=== PATIENT | female | born 1945 | race Caucasian/White ===

== ENCOUNTER 2023-05-10 07:19 | Outpatient (OUT) | payer MEDICARE, SELFPAY ==
[2023-05-13 03:06] LABS: Tacrolimus (FK506), Blood 1.8 ng/mL (2.0-20.0)
== END 2023-05-10 07:20 ==
LOC: LAB 07:25
PROVIDERS: PCP Family Medicine; Visit Provider Internal Medicine Interventional Cardiology
DX: Z94.1 Heart transplant status (principal)
CPT/HCPCS: 36415; 80197

== ENCOUNTER 2023-06-06 18:19 | Emergency (ER) | payer MEDICARE, SELFPAY ==
[2023-06-06] VITALS (30 sets, daily range): BP systolic 140–201; BP diastolic 76–105; PULSE 55–71; RESP 13–25; TEMP 36.8; O2SAT 96–98; BMI 23.4
--- NOTE | 2023-06-06 18:32 | CT_ITS ---
The [address] [address] Patient Name: SYLVIA HANNA MRN: [id number] date: 1945 Sex: F Assigned Patient Location: ED.MAIN Current Patient Location: ER Accession/Order Number: [id number] Exam Date: 06/06/2023 18:50 Report Date: 06/06/2023 19:19 At the request of: ROQUE MATA Procedure: CT head/brain wo con EXAM: CT scan of the head without contrast. Dose reduction technique used: Automated exposure control and/or adjustment of the mA and/or kV according to patient size and/or use of iterative reconstruction technique. REASON FOR EXAM: bilateral hand paresthesia COMPARISON: CT scan dated 02/14/2023 FINDINGS: No intracranial hemorrhage, mass effect, midline shift, fractures or evidence of acute ischemic infarct. No hydrocephalus. Tiny calcification the left frontal white matter. Mild generalized cerebral and cerebellar volume loss. Mild small vessel gliosis. Paranasal sinuses and mastoid air cells are clear. Remainder unremarkable. IMPRESSION: No acute intracranial abnormalities. Electronically authenticated by: REDD KULKARNI Date: 06/06/2023 19:19
--- NOTE | 2023-06-06 18:32 | ECG_ITS ---
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
--- NOTE | 2023-06-06 18:33 | ED.GENADUL1 ---
HPI - General Adult General Chief complaint: Neuro Symptoms/Deficit Stated complaint: Shoulders, arms and hands numbness Time Seen by Provider: 06/06/23 18:22 History of Present Illness HPI narrative: 77-year-old female presents for bilateral hand tingling. She's had it since this morning. She doesn't seem to have any weakness. She's been having headaches today as well. No trauma fever or stiff neck. No vomiting or diarrhea. Symptoms have been continuous. Related Data Allergies Allergy/AdvReac Type Severity Reaction Status Date / Time promethazine [From Phenergan] AdvReac Severe Confusion Verified 06/06/23 18:24 Review of Systems ROS Narrative A ten point review of systems is negative except as noted above. [facility] Medical History (Updated 06/06/23 @ 18:35 by Martin Thomson MD) Exam Narrative Exam Narrative: Nurses note and vital signs reviewed and patient is not hypoxic. General: The patient appears well and in no apparent distress. Patient is resting comfortably on cart. Skin: Warm, dry, no pallor noted. There is no rash noted. Head: Normocephalic, atraumatic Eye: Normal conjunctiva, no drainage Ears, Nose, Mouth, and Throat: oral mucosa is moist. Nares patent. Cardiovascular: Regular Rate and Rhythm Respiratory: Patient is in no distress, no accessory muscle use, lungs are clear to auscultation, no wheezing, rales or rhonchi Back: non-tender GI: soft and nontender Musculoskeletal: The patient has no evidence of calf tenderness, no pitting edema, symmetrical pulses noted bilaterally Neurological: A&O x4, normal speech; upper and lower extremity strength five out five and symmetric Psychiatric: Cooperative Medical Decision Making [facility] Narrative Medical decision making narrative: tests are ordered and the patient is signed out to Dr. Hutchinson. Differential Diagnosis Differential Diagnosis: electrolyte imbalance, intracranial process, anxiety Discharge Plan Discharge Chief Complaint: Neuro Symptoms/Deficit Clinical Impression: Paresthesia of both hands Referrals: Vijay Davis MD [Primary Care Provider] - 1 week
--- NOTE | 2023-06-06 18:47 | PC.NURSE ---
PT STATES SHE HAD COVID ABOUT A MONTH AGO AND HAS LINGERING DRY COUGH. PT STATES HAS BEEN FEELING MORE SHORT OF BREATH RECENTLY.
[2023-06-06 18:48] LABS: Basophils Percent Auto 0.3 % (0.2-2.0); Eosinophils Absolute Auto 0.4 10^3/uL (0.0-0.7); Hematocrit 40.7 % (36.0-48.0); Hemoglobin 13.3 g/dL (12.0-16.0); Immature Granulocytes Abs Auto 0.03 10^3/uL (0.00-0.03); Immature Granulocytes Pct Auto 0.4 % (0.0-0.5); Lymphocytes Percent Auto 13.8 % (20.5-60.0); Mean Corpuscular HGB Conc 32.7 g/dL (29.9-35.2); Mean Corpuscular Hemoglobin 28.4 pg (26.7-34.0); Mean Platelet Volume 9.2 fL (9.5-13.5); Monocytes Absolute Auto 0.8 10^3/uL (0.3-0.8); Monocytes Percent Auto 11.9 % (1.7-12.0); Neutrophils Absolute Auto 4.8 10^3/uL (1.4-6.5); Neutrophils Percent Auto 68.6 % (43.0-75.0); Platelet Count 212 10^3/uL (150-450); Red Blood Count 4.68 10^6/uL (4.20-5.40)
[2023-06-06 18:57] LABS: Anion Gap 14.4; BUN Creatinine Ratio 21.1; Calcium 8.5 mg/dL (8.5-10.1); Carbon Dioxide 22.7 mmol/L (21.0-32.0); Chloride 99 mmol/L (98-107); Estimated GFR (African America 36 (>=60); Estimated GFR (Non-African Ame 30 (>=60); Glucose 195 mg/dL (74-106); Magnesium 1.6 mg/dL (1.8-2.4); Potassium 4.1 mmol/L (3.5-5.1); Sodium 132 mmol/L (136-145)
--- NOTE | 2023-06-06 19:49 | PC.NURSE ---
Pt ambulated steadily to and from the restroom
[2023-06-06] MEDS: HYDRALAZINE HCL 20 MG/ML VIAL 5 MG IVP (21:58)
--- NOTE | 2023-06-06 22:05 | PC.NURSE ---
After speaking with Dr. Hutchinson, pt is taking her own medicactions from home that she would usually take at night time Pt was given a glass of ice water and some food Pt sitting up in bed comfortably
== END 2023-06-06 22:59 | disposition home or self-care (01) ==
PROVIDERS: Emergency Medicine; Emergency Provider Internal Medicine; PCP Family Medicine
DX: R20.2 Paresthesia of skin (principal); I10 Essential (primary) hypertension; Z79.899 Other long term (current) drug therapy
CPT/HCPCS: 36415; 70450; 80048; 81003; 83735; 85025; 93005; 96374; 99285

== ENCOUNTER 2023-06-07 14:43 | Observation (INO) | payer MEDICARE, SELFPAY ==
[2023-06-07] VITALS (27 sets, daily range): BP systolic 103–187; BP diastolic 51–109; PULSE 76–95; RESP 11–33; TEMP 36.7–37.5; O2SAT 93–98; BMI 48.4; BMI 23.6
--- NOTE | 2023-06-07 15:22 | ECG_ITS ---
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
--- NOTE | 2023-06-07 15:27 | ED_ITS ---
HPI - General Adult General Chief complaint: Dizziness Stated complaint: DIZZINESS Time Seen by Provider: 06/07/23 15:00 Source: patient Mode of arrival: ambulance Limitations: no limitations History of Present Illness HPI narrative: patient with 2-3 days of nausea, vomiting and dizziness like I am going to pass out . She was evaluated in our ED yesterday and had a negative head CT. Blood obtained for testing and she was discharged home in improved condition. She said nothing was prescribed for her. She continued to have nausea and vomiting today and the near-syncope worsened so she came back to be evaluated. She told me that she has pain along the right side of the abdomen. No difficulty urinating or passing stool. No fever, chills or cough Related Data Home Medications Medication Instructions Recorded Confirmed aspirin 81 mg tablet,delayed 81 mg PO DAILY 06/06/23 06/06/23 release citalopram 20 mg tablet (Celexa) 20 mg PO DAILY 06/06/23 06/06/23 clonazepam 1 mg tablet 1 mg PO DAILY 06/06/23 06/06/23 qhjrik-[id number]-[id number] 3 cap PO TID 06/06/23 06/06/23 36,000-114,000-180,000 unit capsule,delay rel (Creon) losartan 50 mg tablet 50 mg PO DAILY 06/06/23 06/06/23 magnesium 250 mg tablet 250 mg PO DAILY 06/06/23 06/06/23 metoprolol tartrate 50 mg tablet 50 mg PO Q12H 06/06/23 06/06/23 mycophenolate mofetil 500 mg tablet 500 mg PO BID 06/06/23 06/06/23 omega-3 fatty acids-fish oil 360 1 cap PO DAILY 06/06/23 06/06/23 mg-1,200 mg capsule (Fish Oil) pramipexole 0.5 mg tablet 0.5 mg PO DAILY 06/06/23 06/06/23 simvastatin 20 mg tablet 20 mg PO DAILY 06/06/23 06/06/23 tacrolimus 0.5 mg capsule, 0.5 mg PO Q12H 06/06/23 06/06/23 immediate-release Allergies Allergy/AdvReac Type Severity Reaction Status Date / Time promethazine [From Phenergan] AdvReac Severe Confusion Verified 06/07/23 14:45 [facility] Medical History (Updated 06/07/23 @ 17:46 by Farzaneh Prajapati) Social History Smoking status: Never smoker Exam Narrative Exam Narrative: Nurses notes and vital signs reviewed and patient is not hypoxic. General: Well-appearing and in no apparent distress. Skin: Warm, dry, no pallor noted. No rash. Head: Normocephalic, atraumatic. Neck: Supple, non-tender. no meningismus Eye: Pupils are equal, round and EOMI. No scleral icterus. Ears, Nose, Mouth, and Throat: Oral mucosa is dry Cardiovascular: Regular Rate and Rhythm without murmur, gallop or rub. Respiratory: No accessory muscle use or respiratory distress. Lungs are clear to auscultation, no wheezing, rales or rhonchi Back: No CVA tenderness Musculoskeletal: normal ROM, no calf or popliteal tenderness, no lower extremity edema/swelling GI: Abdomen is soft, non-distended. Normal bowel sounds. No masses appreciated. right-sided tenderness to palpation. No rebound, guarding, or rigidity noted. Neurological: A&O x4. No cranial nerve dysfunction observed. No truncal ataxia. Moves all extremities. Sensation intact. Psychiatric: Cooperative and interactive. Normal mood and affect. Constitutional Vital Signs - 24 hr 06/07/23 14:46 06/07/23 14:50 06/07/23 15:30 Temperature 98.5 F Pulse Rate Pulse Rate [Monitor] 81 Pulse Rate [orthostatic lying] 82 Pulse Rate [orthostatic sitting] Pulse Rate [orthostatic standing] Respiratory Rate 16 Blood Pressure Blood Pressure [Right Arm] 132/72 H Blood Pressure [orthostatic lying Right Arm] 103/79 Blood Pressure [orthostatic sitting] Blood Pressure [orthostatic standing Right Arm] Pulse Oximetry 95 Oxygen Delivery Method Room Air 06/07/23 15:35 06/07/23 15:40 06/07/23 14:47 Temperature Pulse Rate 83 Pulse Rate [Monitor] Pulse Rate [orthostatic lying] Pulse Rate [orthostatic sitting] 84 Pulse Rate [orthostatic standing] 82 Respiratory Rate 31 H Blood Pressure Blood Pressure [Right Arm] Blood Pressure [orthostatic lying Right Arm] Blood Pressure [orthostatic sitting] 130/77 H Blood Pressure [orthostatic standing Right Arm] 119/63 Pulse Oximetry Oxygen Delivery Method 06/07/23 14:49 06/07/23 14:49 06/07/23 14:49 Temperature Pulse Rate 82 84 84 Pulse Rate [Monitor] Pulse Rate [orthostatic lying] Pulse Rate [orthostatic sitting] Pulse Rate [orthostatic standing] Respiratory Rate 26 H 31 H 28 H Blood Pressure 105/51 L 105/51 L Blood Pressure [Right Arm] Blood Pressure [orthostatic lying Right Arm] Blood Pressure [orthostatic sitting] Blood Pressure [orthostatic standing Right Arm] Pulse Oximetry 94 L 95 94 L Oxygen Delivery Method 06/07/23 15:02 06/07/23 15:10 06/07/23 15:20 Temperature Pulse Rate 82 83 83 Pulse Rate [Monitor] Pulse Rate [orthostatic lying] Pulse Rate [orthostatic sitting] Pulse Rate [orthostatic standing] Respiratory Rate 25 H 25 H 29 H Blood Pressure Blood Pressure [Right Arm] Blood Pressure [orthostatic lying Right Arm] Blood Pressure [orthostatic sitting] Blood Pressure [orthostatic standing Right Arm] Pulse Oximetry 94 L 94 L 94 L Oxygen Delivery Method 06/07/23 15:29 06/07/23 15:29 06/07/23 15:30 Temperature Pulse Rate 82 83 84 Pulse Rate [Monitor] Pulse Rate [orthostatic lying] Pulse Rate [orthostatic sitting] Pulse Rate [orthostatic standing] Respiratory Rate 27 H 22 16 Blood Pressure 130/109 H 103/79 Blood Pressure [Right Arm] Blood Pressure [orthostatic lying Right Arm] Blood Pressure [orthostatic sitting] Blood Pressure [orthostatic standing Right Arm] Pulse Oximetry 96 94 L 94 L Oxygen Delivery Method 06/07/23 15:35 06/07/23 15:40 06/07/23 15:54 Temperature Pulse Rate 84 79 80 Pulse Rate [Monitor] Pulse Rate [orthostatic lying] Pulse Rate [orthostatic sitting] Pulse Rate [orthostatic standing] Respiratory Rate 22 25 H 25 H Blood Pressure 130/77 H 119/63 114/72 Blood Pressure [Right Arm] Blood Pressure [orthostatic lying Right Arm] Blood Pressure [orthostatic sitting] Blood Pressure [orthostatic standing Right Arm] Pulse Oximetry 96 Oxygen Delivery Method 06/07/23 16:01 06/07/23 16:01 06/07/23 16:34 Temperature Pulse Rate 81 84 Pulse Rate [Monitor] Pulse Rate [orthostatic lying] Pulse Rate [orthostatic sitting] Pulse Rate [orthostatic standing] Respiratory Rate 24 11 L Blood Pressure 121/69 H 121/69 H Blood Pressure [Right Arm] Blood Pressure [orthostatic lying Right Arm] Blood Pressure [orthostatic sitting] Blood Pressure [orthostatic standing Right Arm] Pulse Oximetry Oxygen Delivery Method 06/07/23 16:47 06/07/23 16:50 06/07/23 17:00 Temperature Pulse Rate 83 80 79 Pulse Rate [Monitor] Pulse Rate [orthostatic lying] Pulse Rate [orthostatic sitting] Pulse Rate [orthostatic standing] Respiratory Rate 31 H 25 H 23 Blood Pressure Blood Pressure [Right Arm] Blood Pressure [orthostatic lying Right Arm] Blood Pressure [orthostatic sitting] Blood Pressure [orthostatic standing Right Arm] Pulse Oximetry 95 95 95 Oxygen Delivery Method 06/07/23 17:01 06/07/23 17:01 06/07/23 17:01 Temperature Pulse Rate 80 80 79 Pulse Rate [Monitor] Pulse Rate [orthostatic lying] Pulse Rate [orthostatic sitting] Pulse Rate [orthostatic standing] Respiratory Rate 28 H 24 28 H Blood Pressure 116/98 H 116/98 H Blood Pressure [Right Arm] Blood Pressure [orthostatic lying Right Arm] Blood Pressure [orthostatic sitting] Blood Pressure [orthostatic standing Right Arm] Pulse Oximetry 95 96 94 L Oxygen Delivery Method Course Vital Signs Vital signs: Vital Signs Temperature 98.5 F 06/07/23 14:46 Pulse Rate 81 06/07/23 14:46 Respiratory Rate 16 06/07/23 14:46 Blood Pressure 132/72 H 06/07/23 14:46 Pulse Oximetry 95 06/07/23 14:46 Temperature 98.5 F 06/07/23 14:46 Pulse Rate 79 06/07/23 17:01 Respiratory Rate 28 H 06/07/23 17:01 Blood Pressure 116/98 H 06/07/23 17:01 Pulse Oximetry 94 L 06/07/23 17:01 Oxygen Delivery Method Room Air 06/07/23 14:50 Medical Decision Making MDM Narrative Medical decision making narrative: peripheral IV established and blood drawn and sent for testing. The patient is clinically dehydrated and was given normal saline IV fluid. I had concerns about the patient's continued vomiting with diarrhea and abdominal pain so I ordered CT scanning of the abdomen pelvis. White blood cell count was elevated at 12k. Left shift was noted. urinalysis revealed acute urinary tract infection. The patient was ordered to receive IV Cipro. CMP reveals slightly decreased sodium at 129, elevated BUN and creatinine, elevated total bilirubin at 1.[address] revealed findings consistent with duodenitis and enteritis. Patient only felt minimally better after emergency department treatment. Patient's failed outpatient therapy and would benefit from admission. I spoke with patient's primary care provider. Dr. Bacon agreed to have the patient with his service. The patient is agreeable to admission Lab Data Lab results reviewed: Yes I reviewed the patient's lab results Labs: Lab Results 06/07/23 06/07/23 Range/Units 15:51 16:40 WBC 12.0 H (4.0-11.0) 10^3/uL RBC 4.92 (4.20-5.40) 10^6/uL Hgb 14.0 (12.0-16.0) g/dL Hct 42.2 (36.0-48.0) % MCV 85.8 (81.0-99.0) fL MCH 28.5 (26.7-34.0) pg MCHC 33.2 (29.9-35.2) g/dL RDW 13.0 (11.0-15.0) % Plt Count 190 (150-450) 10^3/uL MPV 9.1 L (9.5-13.5) fL Neut % (Auto) 91.5 H (43.0-75.0) % Lymph % (Auto) 1.3 L (20.5-60.0) % Ness % (Auto) 6.4 (1.7-12.0) % Eos % (Auto) 0.3 L (0.9-7.0) % Baso % (Auto) 0.1 L (0.2-2.0) % Neut # (Auto) 11.0 H (1.4-6.5) 10^3/uL Lymph # (Auto) 0.2 L (1.2-3.8) 10^3/uL Ness # (Auto) 0.8 (0.3-0.8) 10^3/uL Eos # (Auto) 0.0 (0.0-0.7) 10^3/uL Baso # (Auto) 0.0 (0.0-0.1) 10^3/uL Abs Immat Gran (auto) 0.05 H (0.00-0.03) 10^3/uL Imm/Tot Granulo (auto) 0.4 (0.0-0.5) % Sodium 129 L (136-145) mmol/L Potassium 4.3 (3.5-5.1) mmol/L Chloride 99 (98-107) mmol/L Carbon Dioxide 22.2 (21.0-32.0) mmol/L Anion Gap 12.1 BUN 37.0 H (7.0-18.0) mg/dL Creatinine 1.86 H (0.55-1.02) mg/dL Est GFR ( Amer) 32 L (>=60) Est GFR (Non-Af Amer) 26 L (>=60) BUN/Creatinine Ratio 19.9 Glucose 165 H (74-106) mg/dL Calcium 8.9 (8.5-10.1) mg/dL Total Bilirubin 1.8 H (0.2-1.0) mg/dL AST 23 (15-37) U/L ALT 24 (14-59) U/L Alkaline Phosphatase 122 H (46-116) U/L Troponin I High Sens 6.4 (4.0-51.3) pg/mL Total Protein 6.8 (6.4-8.2) g/dL Albumin 3.6 (3.4-5.0) g/dL Globulin 3.2 g/dL Albumin/Globulin Ratio 1.1 Lipase 129.0 (73.0-393.0) U/L Urine Color Yellow (YELLOW) Urine Clarity Slightly cloudy A (CLEAR) Urine pH 5.5 (5.0-9.0) Ur Specific Dixon 1.020 (1.005-1.025) Urine Protein >=300 A (NEG/TRACE) mg/dL Urine Glucose (UA) Negative (NEGATIVE) mg/dL Urine Ketones Negative (NEGATIVE) mg/dL Urine Occult Blood Trace-i (NEGATIVE) Urine Nitrite Negative (NEGATIVE) Urine Bilirubin Negative (NEGATIVE) Urine Urobilinogen 0.2 (0.2-1.0) EU/dL Ur Leukocyte Esterase Trace A (NEGATIVE) Urine RBC 0-2 (0-2) #/HPF Urine WBC 10-20 A (NONE SEEN) #/HPF Ur Squamous Epith Cells Rare (NONE/RARE) #/LPF Urine Crystals None seen (None Seen) #/HPF Urine Bacteria Trace A (NONE SEEN) #/HPF Urine Casts Seen A (NONE SEEN) #/LPF Hyaline Casts Rare Urine Mucus None seen (NONE SEEN) Ur Culture Indicated? Yes Imaging Data ct abd/pelvis: Radiologist's impression: Patient Name: SYLVIA HANNA MRN: [facility] [place]:[id number] date: 1945 Sex: F Assigned Patient Location: ER Current Patient Location: ER Accession/Order Number: [id number] Exam Date: 06/07/2023 16:17 Report Date: 06/07/2023 17:15 At the request of: FARZANEH PRAJAPATI Procedure: CT abdomen pelvis w con EXAM: CT abdomen pelvis w con; [id number] REASON FOR EXAM: right abd pain, vomiting TECHNIQUE: Helical CT images of the abdomen and pelvis were obtained after the administration of IV contrast. Multiplanar reformats were generated at the scanner. Dose reduction technique used: Automated exposure control and/or adjustment of the mA and/or kV according to patient size and/or use of iterative reconstruction technique. COMPARISON: CT abdomen/pelvis 02/18/2022. FINDINGS: Visualized Chest: Mild chronic left basilar scarring, similar. Abdomen: Liver: Within normal limits. Gallbladder: Resected. Bile Ducts: No significant biliary ductal dilatation. Pancreas: No mass, ductal dilatation, or inflammatory changes. Spleen: Medium-sized focal area of hypoattenuation versus chronic splenic capsular collection measuring 12 mm in greatest thickness, similar compared with 02/18/2022. No new splenic abnormality. Adrenals: No nodules. Kidneys: -No stones or hydronephrosis. -Bilateral renal lesions are not significantly changed. The majority of these likely represent subcentimeter cysts. There are 2 in the left kidney which are of intermediate density with the largest in the lower pole measuring 17 mm in size. Vascular: No aortic aneurysm. Lymph Nodes: Scattered mildly prominent though not pathologically enlarged lymph nodes at the mesenteric root are similar. No enlarging lymph nodes. Abdominal Wall: No hernia or mass. Pelvis: No mass or adenopathy. Bowel/Peritoneal Cavity/Mesentery: -Mild colonic diverticulosis without evidence of acute diverticulitis. -Short segment of moderate wall thickening and mucosal hyperenhancement extending from the second portion of the duodenum into the third (for example series 3 image 52), moderately worse compared with 02/18/2022. -There is liquid stool throughout the small bowel. -No bowel obstruction or significant ileus. -No free air or free fluid. Musculoskeletal: No acute fracture or suspicious osseous lesion. IMPRESSION: 1. Liquid stool throughout the small bowel which can be seen in setting of enteritis. 2. Moderate wall thickening of the second through third portions of the duodenum which appear moderately worse compared with 02/18/2022. Correlate for duodenitis. 3. No bowel obstruction. Electronically authenticated by: ALEXANDER BELLO Date: 06/07/2023 17:15 ECG Data Interpretation: EKG interpretation: Emergency Department physician interpretation. Normal sinus rhythm at 80bpm. right bundle-branch block, right axis deviation. Inferolateral ST depression Discharge Plan Discharge Chief Complaint: Dizziness Clinical Impression: Gastroenteritis, Acute kidney injury, Acute dehydration, Acute UTI Patient Disposition: Admitted as Observation Time of Disposition Decision: 17:31 Additional Instructions: dr bacon, medical/surgical floor
[2023-06-07] MEDS: 0.9 % SODIUM CHLORIDE 1,000 ML 999 ML IV (15:41)
[2023-06-07 16:00] LABS: Basophils Percent Auto 0.1 % (0.2-2.0); Eosinophils Percent Auto 0.3 % (0.9-7.0); Hematocrit 42.2 % (36.0-48.0); Immature Granulocytes Abs Auto 0.05 10^3/uL (0.00-0.03); Immature Granulocytes Pct Auto 0.4 % (0.0-0.5); Lymphocytes Absolute Auto 0.2 10^3/uL (1.2-3.8); Lymphocytes Percent Auto 1.3 % (20.5-60.0); Mean Corpuscular HGB Conc 33.2 g/dL (29.9-35.2); Mean Corpuscular Hemoglobin 28.5 pg (26.7-34.0); Mean Corpuscular Volume 85.8 fL (81.0-99.0); Mean Platelet Volume 9.1 fL (9.5-13.5); Monocytes Absolute Auto 0.8 10^3/uL (0.3-0.8); Monocytes Percent Auto 6.4 % (1.7-12.0); Neutrophils Percent Auto 91.5 % (43.0-75.0); Platelet Count 190 10^3/uL (150-450); Red Blood Count 4.92 10^6/uL (4.20-5.40)
[2023-06-07 16:18] LABS: Alanine Aminotransferase 24 U/L (14-59); Albumin Globulin Ratio 1.1; Albumin Level 3.6 g/dL (3.4-5.0); Alkaline Phosphatase 122 U/L (46-116); Anion Gap 12.1; Aspartate Amino Transferase 23 U/L (15-37); BUN Creatinine Ratio 19.9; Bilirubin Total 1.8 mg/dL (0.2-1.0); Calcium 8.9 mg/dL (8.5-10.1); Carbon Dioxide 22.2 mmol/L (21.0-32.0); Chloride 99 mmol/L (98-107); Estimated GFR (African America 32 (>=60); Estimated GFR (Non-African Ame 26 (>=60); Globulin 3.2 g/dL; Glucose 165 mg/dL (74-106); Potassium 4.3 mmol/L (3.5-5.1); Sodium 129 mmol/L (136-145); Total Protein 6.8 g/dL (6.4-8.2); Troponin I High Sensitivity 6.4 pg/mL (4.0-51.3)
[2023-06-07 17:03] LABS: Bilirubin Urine NEGATIVE (NEGATIVE); Blood Urine TRACE-I (NEGATIVE); Color Urine YELLOW (YELLOW); Glucose Urine UA NEGATIVE (NEGATIVE); Ketones Urine NEGATIVE (NEGATIVE); Leukocyte Esterase Urine TRACE (NEGATIVE); Nitrite Urine NEGATIVE (NEGATIVE); Protein Urine >=300 mg/dL (NEG/TRACE); Urobilinogen Urine 0.2 EU/dL (0.2-1.0); pH Urine 5.5 (5.0-9.0)
[2023-06-07 17:04] LABS: Clarity Urine SLIGHTLY CLOUDY (CLEAR); Urine Microscopic Indicated YES
[2023-06-07 17:11] LABS: Bacteria Urine TRACE #/HPF (NONE SEEN); Cast Seen? SEEN #/LPF (NONE SEEN); Crystals Seen? None Seen #/HPF (None Seen); Hyaline Casts Urine RARE; Mucus Urine NONE SEEN (NONE SEEN); RBC Urine 0-2 #/HPF (0-2); Squamous Epithelial Cell Urine RARE #/LPF (NONE/RARE); Urine Culture Indicated YES
[2023-06-07] MEDS: CIPROFLOXACIN IN 5 % DEXTROSE 400 MG/200 ML PIGGYBACK IV (17:45)
[2023-06-07] MEDS: DIPHENHYDRAMINE HCL 50 MG/ML (1ML) VIAL 25 MG IV (18:20)
[2023-06-07] MEDS: CEFTRIAXONE 1,000 MG in 0.9 % SODIUM CHLORIDE 50 ML 100 MG IV (18:41)
[2023-06-07] MEDS: LACTATED RINGER'S SOLUTION 1,000 ML 75 ML IV (18:41)
[2023-06-07] MEDS: PANTOPRAZOLE SODIUM 40 MG VIAL IV (21:36)
[2023-06-07] MEDS: L. ACIDOPHILUS/L.BULGARICUS 1 PACKET GRAN.PACK PO (21:36)
[2023-06-07] MEDS: METOPROLOL TARTRATE 50 MG TABLET PO (21:37)
[2023-06-08 06:00] VITALS: BP 122/47; PULSE 67; RESP 18; TEMP 37.3; O2SAT 95
[2023-06-08 06:06] LABS: Hematocrit 37.9 % (36.0-48.0); Hemoglobin 12.1 g/dL (12.0-16.0); Mean Corpuscular HGB Conc 31.9 g/dL (29.9-35.2); Mean Corpuscular Hemoglobin 28.4 pg (26.7-34.0); Red Blood Count 4.26 10^6/uL (4.20-5.40); White Blood Count 6.4 10^3/uL (4.0-11.0)
[2023-06-08 06:07] LABS: Basophils Percent Auto 0.3 % (0.2-2.0); Eosinophils Absolute Auto 0.1 10^3/uL (0.0-0.7); Eosinophils Percent Auto 1.3 % (0.9-7.0); Immature Granulocytes Abs Auto 0.02 10^3/uL (0.00-0.03); Immature Granulocytes Pct Auto 0.3 % (0.0-0.5); Lymphocytes Absolute Auto 0.3 10^3/uL (1.2-3.8); Lymphocytes Percent Auto 3.9 % (20.5-60.0); Mean Platelet Volume 9.3 fL (9.5-13.5); Monocytes Absolute Auto 0.6 10^3/uL (0.3-0.8); Monocytes Percent Auto 10.1 % (1.7-12.0); Neutrophils Absolute Auto 5.3 10^3/uL (1.4-6.5); Neutrophils Percent Auto 84.1 % (43.0-75.0); Platelet Count 157 10^3/uL (150-450); Red Cell Distribution Width 13.1 % (11.0-15.0)
[2023-06-08 06:34] LABS: Anion Gap 11.8; BUN Creatinine Ratio 18.1; Bilirubin Total 1.3 mg/dL (0.2-1.0); Calcium 7.9 mg/dL (8.5-10.1); Carbon Dioxide 21.3 mmol/L (21.0-32.0); Chloride 100 mmol/L (98-107); Estimated GFR (African America 35 (>=60); Estimated GFR (Non-African Ame 29 (>=60); Glucose 113 mg/dL (74-106); Magnesium 1.5 mg/dL (1.8-2.4); Potassium 4.1 mmol/L (3.5-5.1); Sodium 129 mmol/L (136-145)
[2023-06-08 06:35] LABS: Alanine Aminotransferase 23 U/L (14-59); Albumin Globulin Ratio 1.1; Albumin Level 2.9 g/dL (3.4-5.0); Alkaline Phosphatase 78 U/L (46-116); Aspartate Amino Transferase 22 U/L (15-37); Globulin 2.6 g/dL; Total Protein 5.5 g/dL (6.4-8.2); Troponin I High Sensitivity 12.5 pg/mL (4.0-51.3)
[2023-06-08] MEDS: METOPROLOL TARTRATE 50 MG TABLET PO (08:24)
[2023-06-08] MEDS: MAGNESIUM OXIDE 400 MG TABLET PO (08:24)
[2023-06-08] MEDS: ATORVASTATIN CALCIUM 10 MG TABLET PO (08:24)
[2023-06-08] MEDS: CLONAZEPAM 1 MG TABLET PO (08:24)
[2023-06-08] MEDS: CITALOPRAM HYDROBROMIDE 20 MG TABLET PO (08:24)
[2023-06-08] MEDS: ASPIRIN 81 MG TABLET.DR PO (08:24)
[2023-06-08] MEDS: PRAMIPEXOLE 1 MG TABLET 0.5 MG PO (08:24)
[2023-06-08] MEDS: OMEGA-3/DHA/EPA/FISH OIL 1,000 MG CAPSULE 1000 MG PO (08:24)
--- NOTE | 2023-06-08 10:04 | P.HP_ITS ---
H&P: HPI History of Present Illness Chief complaint: GASTROENTERITIS ABD UTI Narrative: Patient was seen and evaluated in the emergency room twice in the last 24 hours. Diarrhea with recurrent emesis. It was improved on the first admission but then the second visit to the emergency room unable to improve. Patient admitted for IV therapy. [facility] Medical History (Updated 06/07/23 @ 17:46 by Jackson Valderrama) Social History (Updated 06/07/23 @ 22:11 by Lizeth Ho) Within the past year, how often did you have a drink containing alcohol: never Score interpretation: A score less than 3 is consistent with normal alcohol consumption. Smoking status: Never smoker Non-prescribed substance use: denies use Highest level of school completed/degree received: high school graduate Are you now , , , , never or living with a partner: In a typical week, how many times do you talk on the telephone with family, friends, or neighbors: 3 or more times per week How often do you get together with friends or relatives: 3 or more times per week How often do you attend zoroastrianism or moravian services: 4 or more times per year Do you belong to any clubs or organizations such as zoroastrianism groups unions, [employer] or athletic groups, or school groups: no Total score: 3 Score interpretation: A score of greater than or equal to 2 indicates the lowest level of social isolation. Little interest or pleasure in doing things: not at all Feeling down, depressed, or hopeless: not at all Feel stressed/tense/nervous/anxious/difficulty sleeping: not at all Do you think of yourself as: straight/heterosexual Gender Identity: female Meds Home Medications and Allergies Home Medications Medication Instructions Recorded Confirmed Type aspirin 81 mg tablet,delayed 81 mg PO DAILY 06/06/23 06/07/23 History release citalopram 20 mg tablet (Celexa) 20 mg PO DAILY 06/06/23 06/07/23 History clonazepam 1 mg tablet 1 mg PO DAILY PRN anxiety 06/06/23 06/07/23 History leuint-[id number]-baipeir 3 cap PO TID 06/06/23 06/07/23 History 36,000-114,000-180,000 unit capsule,delay rel (Creon) losartan 50 mg tablet 50 mg PO DAILY 06/06/23 06/07/23 History magnesium 250 mg tablet 250 mg PO DAILY 06/06/23 06/07/23 History metoprolol tartrate 50 mg tablet 50 mg PO Q12H 06/06/23 06/07/23 History mycophenolate mofetil 500 mg tablet 500 mg PO BID 06/06/23 06/07/23 History omega-3 fatty acids-fish oil 360 1 cap PO DAILY 06/06/23 06/07/23 History mg-1,200 mg capsule (Fish Oil) pramipexole 0.5 mg tablet 0.5 mg PO DAILY 06/06/23 06/07/23 History simvastatin 20 mg tablet 20 mg PO DAILY 06/06/23 06/07/23 History tacrolimus 0.5 mg capsule, 0.5 mg PO Q12H 06/06/23 06/07/23 History immediate-release levothyroxine 112 mcg tablet 112 mcg PO QDAY 06/07/23 06/07/23 History cefdinir 300 mg capsule 300 mg PO Q12H 10 days #20 caps 06/08/23 Rx ondansetron 4 mg disintegrating 4 mg PO Q6H PRN nausea and 06/08/23 Rx tablet vomiting #14 tabs Allergies Allergy/AdvReac Type Severity Reaction Status Date / Time promethazine [From Phenergan] AdvReac Severe Confusion Verified 06/07/23 14:45 ciprofloxacin [From Cipro] AdvReac Mild HIVES Verified 06/07/23 18:44 Exam Constitutional Vital Signs, click to edit/add: Last Vital Signs Temp 99.2 F 06/08/23 06:00 Pulse 67 06/08/23 06:00 Resp 18 06/08/23 06:00 BP 122/47 H 06/08/23 06:00 Pulse Ox 95 06/08/23 06:00 O2 Del Method Room Air 06/08/23 06:00 Documenting provider has reviewed patient's vital signs: yes Common normals: no apparent distress Exam limitations: no altered mental status Respiratory Common normals: normal respiratory effort, no retractions, no use of accessory muscles and clear to auscultation bilaterally Cardio Common normals: regular rate, regular rhythm and no murmurs GI Common normals: Normal to inspection, nondistended, normoactive bowel sounds present, soft to palpation and non-tender Results Labs Labs: Short CBC 06/07/23 06/08/23 Range/Units 15:51 04:25 WBC 12.0 H 6.4 (4.0-11.0) 10^3/uL Hgb 14.0 12.1 (12.0-16.0) g/dL Hct 42.2 37.9 (36.0-48.0) % Plt Count 190 157 (150-450) 10^3/uL BMP 06/07/23 06/08/23 15:51 04:25 Sodium 129 L 129 L Potassium 4.3 4.1 Chloride 99 100 Carbon Dioxide 22.2 21.3 BUN 37.0 H 31.0 H Creatinine 1.86 H 1.71 H Glucose 165 H 113 H Calcium 8.9 7.9 L Liver Function 06/07/23 06/08/23 Range/Units 15:51 04:25 Total Bilirubin 1.8 H 1.3 H (0.2-1.0) mg/dL AST 23 22 (15-37) U/L ALT 24 23 (14-59) U/L Alkaline Phosphatase 122 H 78 (46-116) U/L Albumin 3.6 2.9 L (3.4-5.0) g/dL Urine 06/07/23 Range/Units 16:40 Urine Color Yellow (YELLOW) Urine Clarity Slightly cloudy A (CLEAR) Urine pH 5.5 (5.0-9.0) Ur Specific [place] 1.020 (1.005-1.025) Urine Protein >=300 A (NEG/TRACE) mg/dL Urine Glucose (UA) Negative (NEGATIVE) mg/dL Assessment and Plan Assessment and Plan (1) Hypertension: (2) Gastroenteritis: (3) Acute kidney injury: (4) Acute dehydration: (5) Acute UTI: Plan Dehydration secondary to acute gastroenteritis and complicated by acute UTI. On IV antibiotics. Patient does feel much improved currently. She did tolerate breakfast without emesis. At this point if he tolerates lunch without emesis and is ambulating safely we will discharge patient to home in improving condition. Medications see list. Follow-up with me in the office just as needed based on symptoms
[2023-06-08] MEDS: L. ACIDOPHILUS/L.BULGARICUS 1 PACKET GRAN.PACK PO (11:11)
[2023-06-08 11:26] VITALS: O2SAT 92
[2023-06-08] MEDS: ACETAMINOPHEN 500 MG TABLET 1000 MG PO (12:06)
--- NOTE | 2023-06-10 12:16 | CM.DCFOLLOWU ---
Person spoke with: patient How are you feeling? weak How is your pain? pt did not voice that she was in pain Did you understand your discharge instructions? yes Do you have any questions about your discharge instructions? no Were you given any prescriptions at discharge? yes Were you able to get your prescriptions filled? yes Do you understand how to take your medications as ordered? yes Do you have any questions about your follow up appointment and do you plan to keep your follow up appointment? no questions and she will call for follow up apt. Is there anything else that you would like to discuss? no Questions/Comments/Concerns/Other: Patient did voice she had excellent care and was very happy with her stay here.
== END 2023-06-08 14:34 | disposition home or self-care (01) ==
LOC: ER 17:33 → MS 19:57
PROVIDERS: Admitting Provider Family Medicine; Emergency Provider Emergency Medicine; PCP Family Medicine; Visit Provider Family Medicine
DX: N39.0 Urinary tract infection, site not specified (principal); E86.0 Dehydration; K52.9 Noninfective gastroenteritis and colitis, unspecified; N17.9 Acute kidney failure, unspecified; I10 Essential (primary) hypertension; R42 Dizziness and giddiness; Z79.82 Long term (current) use of aspirin; Z79.899 Other long term (current) drug therapy; Z79.890 Hormone replacement therapy
CPT/HCPCS: 36415; 74177; 80053; 81003; 81015; 83690; 83735; 83880; 84484; 85025; 87086; 87493; 87507; 93005; 94667; 94761; 96361; 96365; 96375; 99285; G0378; Q9966

== ENCOUNTER 2023-08-06 07:05 | Outpatient (OUT) | payer MEDICARE, SELFPAY ==
[2023-08-08 16:09] LABS: Tacrolimus (FK506), Blood 1.4 ng/mL (2.0-20.0)
== END 2023-08-06 07:06 | disposition home or self-care (01) ==
LOC: LAB 07:08
PROVIDERS: PCP Family Medicine; Visit Provider Internal Medicine Interventional Cardiology
DX: Z94.1 Heart transplant status (principal)
CPT/HCPCS: 36415; 80197

== ENCOUNTER 2023-08-10 21:04 | Emergency (ER) | payer MEDICARE, SELFPAY ==
[2023-08-10] VITALS (18 sets, daily range): BP systolic 182–202; BP diastolic 99–121; PULSE 68–84; RESP 10–80; TEMP 36.5; O2SAT 93–99; BMI 23.4
--- NOTE | 2023-08-10 21:20 | ECG_ITS ---
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
--- NOTE | 2023-08-10 21:20 | XR_ITS ---
The [address] [address] Patient Name: SYLVIA HANNA MRN: [id number] date: 1945 Sex: F Assigned Patient Location: ER Current Patient Location: ER Accession/Order Number: [id number] Exam Date: 08/10/2023 21:20 Report Date: 08/10/2023 21:54 At the request of: ROQUE MATA Procedure: XR chest 1V EXAMINATION: XR chest 1V HISTORY: Shortness of breath COMPARISON: Portable chest 02/14/2023 TECHNIQUE: Portable chest FINDINGS: The lung parenchyma is free of consolidation or infiltrate. No pneumothorax or pleural effusion. Status post median sternotomy. The cardiac, mediastinal and hilar contours are normal. The visualized osseous structures exhibit no gross abnormality. XR/XR chest 1V IMPRESSION: No acute cardiopulmonary abnormality. Electronically authenticated by: JAZLYN PANG Date: 08/10/2023 21:54
--- NOTE | 2023-08-10 21:21 | ED.SOB1 ---
HPI - SOB/Dyspnea General Chief Complaint: Shortness of Breath/Dyspnea Stated Complaint: sob Time Seen by Provider: 08/10/23 21:14 Source: patient Mode of arrival: ambulance History of Present Illness HPI Narrative: 77-year-old female presents for feeling dizzy and short of breath. She's been this way all day, since early in the morning, about twelve hours ago. Her last week. She is on clonazepam as needed home but she didn't take any today. No fever or complaints of chest pain. She's been taking all of her medications but hasn't yet taken her night medications. Symptom has been continuous. she also received a phone call this morning that somebody had hacked her credit card. Related Data Home Medications Medication Instructions Recorded Confirmed aspirin 81 mg tablet,delayed 81 mg PO DAILY 06/06/23 08/10/23 release citalopram 20 mg tablet (Celexa) 20 mg PO DAILY 06/06/23 08/10/23 clonazepam 1 mg tablet 1 mg PO DAILY PRN anxiety 06/06/23 08/10/23 mbwhfq-fntsyieg-jbwasyj 3 cap PO TID 06/06/23 08/10/23 36,000-114,000-180,000 unit capsule,delay rel (Creon) losartan 50 mg tablet 50 mg PO DAILY 06/06/23 08/10/23 magnesium 250 mg tablet 250 mg PO DAILY 06/06/23 08/10/23 metoprolol tartrate 50 mg tablet 50 mg PO Q12H 06/06/23 08/10/23 mycophenolate mofetil 500 mg tablet 500 mg PO BID 06/06/23 08/10/23 omega-3 fatty acids-fish oil 360 1 cap PO DAILY 06/06/23 08/10/23 mg-1,200 mg capsule (Fish Oil) pramipexole 0.5 mg tablet 0.5 mg PO DAILY 06/06/23 08/10/23 simvastatin 20 mg tablet 20 mg PO DAILY 06/06/23 08/10/23 tacrolimus 0.5 mg capsule, 0.5 mg PO Q12H 06/06/23 08/10/23 immediate-release levothyroxine 112 mcg tablet 112 mcg PO QDAY 06/07/23 08/10/23 buspirone 5 mg tablet 5 mg PO QDAY 08/10/23 08/10/23 doxazosin 2 mg tablet 2 mg PO QDAY 08/10/23 08/10/23 levofloxacin 500 mg tablet 500 mg PO Q24H 08/10/23 08/10/23 Previous Rx's Medication Instructions Recorded ondansetron 4 mg disintegrating 4 mg PO Q6H PRN nausea and 06/08/23 tablet vomiting #14 tabs Allergies Allergy/AdvReac Type Severity Reaction Status Date / Time promethazine [From Phenergan] AdvReac Severe Confusion Verified 06/07/23 14:45 ciprofloxacin [From Cipro] AdvReac Mild HIVES Verified 06/07/23 18:44 Review of Systems ROS Narrative A ten point review of systems is negative except as noted above. [facility] Medical History (Updated 08/10/23 @ 22:43 by Martin Thomson MD) Social History (Updated 06/07/23 @ 22:11 by Lizeth Ho) Within the past year, how often did you have a drink containing alcohol: never Score interpretation: A score less than 3 is consistent with normal alcohol consumption. Smoking status: Never smoker Non-prescribed substance use: denies use Highest level of school completed/degree received: high school graduate Are you now , , , , never or living with a partner: In a typical week, how many times do you talk on the telephone with family, friends, or neighbors: 3 or more times per week How often do you get together with friends or relatives: 3 or more times per week How often do you attend orthodoxy or moravian services: 4 or more times per year Do you belong to any clubs or organizations such as orthodoxy groups unions, fraternal or athletic groups, or school groups: no Total score: 3 Score interpretation: A score of greater than or equal to 2 indicates the lowest level of social isolation. Little interest or pleasure in doing things: not at all Feeling down, depressed, or hopeless: not at all Feel stressed/tense/nervous/anxious/difficulty sleeping: not at all Do you think of yourself as: straight/heterosexual Gender Identity: female Exam Narrative Exam Narrative: Nurses note and vital signs reviewed and patient is not hypoxic. General: The patient appears mildly anxious and in no apparent distress. Patient is resting comfortably on cart. Skin: Warm, dry, no pallor noted. There is no rash noted. Head: Normocephalic, atraumatic Eye: Normal conjunctiva, no drainage Ears, Nose, Mouth, and Throat: oral mucosa is moist. Nares patent. Mouth without vesicles. Ear canals patent. Tm's without Erythema Cardiovascular: Regular Rate and Rhythm Respiratory: Patient is in no distress, no accessory muscle use, lungs are clear to auscultation, no wheezing, rales or rhonchi Back: non-tender GI: soft and nontender Musculoskeletal: The patient has no evidence of calf tenderness, no pitting edema, symmetrical pulses noted bilaterally Neurological: A&O, normal speech Psychiatric: Cooperative, appears mildly anxious. Constitutional Vital Signs, click to edit/add: Last Vital Signs Temp 97.7 F 08/10/23 21:08 Pulse 72 08/10/23 22:20 Resp 18 08/10/23 22:20 BP 202/99 H 08/10/23 22:15 Pulse Ox 98 08/10/23 22:20 O2 Del Method Room Air 08/10/23 21:08 Course Vital Signs Vital signs: Vital Signs Temperature 97.7 F 08/10/23 21:08 Pulse Rate 79 08/10/23 21:08 Respiratory Rate 80 H 08/10/23 21:08 Blood Pressure 194/113 H 08/10/23 21:08 Pulse Oximetry 98 08/10/23 21:08 Oxygen Delivery Method Room Air 08/10/23 21:08 Temperature 97.7 F 08/10/23 21:08 Pulse Rate 72 08/10/23 22:20 Respiratory Rate 18 08/10/23 22:20 Blood Pressure 202/99 H 08/10/23 22:15 Pulse Oximetry 98 08/10/23 22:20 Oxygen Delivery Method Room Air 08/10/23 21:08 MDM - SOB/Dyspnea MDM Narrative Medical decision making narrative: my clinical impression is that the patient has anxiety. Her medical workup is negative. She was given IV Ativan and feels improved and will be discharged home. treatment diagnosis and follow-up were discussed with the patient. Differential Diagnosis Differential diagnosis: Likely congestive heart failure, community acquired pneumonia and other (anxiety) Lab Data Attestation: I reviewed the patient's lab results. Labs: Lab Results 08/10/23 Range/Units 21:47 WBC 6.1 (4.0-11.0) 10^3/uL RBC 4.21 (4.20-5.40) 10^6/uL Hgb 12.2 (12.0-16.0) g/dL Hct 37.1 (36.0-48.0) % MCV 88.1 (81.0-99.0) fL MCH 29.0 (26.7-34.0) pg MCHC 32.9 (29.9-35.2) g/dL RDW 12.7 (11.0-15.0) % Plt Count 161 (150-450) 10^3/uL MPV 9.5 (9.5-13.5) fL Neut % (Auto) 71.2 (43.0-75.0) % Lymph % (Auto) 13.9 L (20.5-60.0) % [place] % (Auto) 11.6 (1.7-12.0) % Eos % (Auto) 2.8 (0.9-7.0) % Baso % (Auto) 0.2 (0.2-2.0) % Neut # (Auto) 4.3 (1.4-6.5) 10^3/uL Lymph # (Auto) 0.8 L (1.2-3.8) 10^3/uL [place] # (Auto) 0.7 (0.3-0.8) 10^3/uL Eos # (Auto) 0.2 (0.0-0.7) 10^3/uL Baso # (Auto) 0.0 (0.0-0.1) 10^3/uL Abs Immat Gran (auto) 0.02 (0.00-0.03) 10^3/uL Imm/Tot Granulo (auto) 0.3 (0.0-0.5) % Sodium 138 (136-145) mmol/L Potassium 3.7 (3.5-5.1) mmol/L Chloride 103 (98-107) mmol/L Carbon Dioxide 26.4 (21.0-32.0) mmol/L Anion Gap 12.3 BUN 20.0 H (7.0-18.0) mg/dL Creatinine 1.56 H (0.55-1.02) mg/dL Est GFR ( Amer) 39 L (>=60) Est GFR (Non-Af Amer) 32 L (>=60) BUN/Creatinine Ratio 12.8 Glucose 122 H (74-106) mg/dL Calcium 8.3 L (8.5-10.1) mg/dL Troponin I High Sens 8.4 (4.0-51.3) pg/mL Imaging Data Chest x-ray: Radiologist's impression: no acute findings ECG Data Attestation: I personally reviewed and interpreted this ECG as follows: (EKG on my interpretation shows sinus rhythm with a rate of seventy-three.) Discharge Plan Discharge Chief Complaint: Shortness of Breath/Dyspnea Clinical Impression: Anxiety Patient Disposition: Home, Self-Care Time of Disposition Decision: 22:42 Condition: Good Mode of Transportation: Private Vehicle Prescriptions / Home Meds: No Action levothyroxine 112 mcg tablet 112 mcg PO QDAY ondansetron 4 mg tablet,disintegrating 4 mg PO Q6H PRN (Reason: nausea and vomiting) Qty: 14 0RF buspirone 5 mg tablet 5 mg PO QDAY doxazosin 2 mg tablet 2 mg PO QDAY levofloxacin 500 mg tablet 500 mg PO Q24H citalopram [Celexa] 20 mg tablet 20 mg PO DAILY metoprolol tartrate 50 mg tablet 50 mg PO Q12H losartan 50 mg tablet 50 mg PO DAILY pramipexole 0.5 mg tablet 0.5 mg PO DAILY aspirin 81 mg tablet,delayed release (DR/EC) 81 mg PO DAILY mycophenolate mofetil 500 mg tablet 500 mg PO BID tacrolimus 0.5 mg capsule 0.5 mg PO Q12H clonazepam 1 mg tablet 1 mg PO DAILY PRN (Reason: anxiety) simvastatin 20 mg tablet 20 mg PO DAILY Creon 36,000-114,000- 180,000 unit capsule,delayed release(DR/EC) 3 cap PO TID Rx Instructions: administer with meals and/or snacks magnesium 250 mg tablet 250 mg PO DAILY omega-3 fatty acids-fish oil [Fish Oil] 360-1,200 mg capsule 1 cap PO DAILY Instructions: Anxiety (ED) Stand Alone Forms: Portal Instructions Referrals: Vijay Davis MD [Primary Care Provider] - 1 week
[2023-08-10] MEDS: LORAZEPAM 2 MG/ML 1 ML VIAL 0.5 MG IV (21:56)
[2023-08-10 22:20] LABS: Anion Gap 12.3; BUN Creatinine Ratio 12.8; Calcium 8.3 mg/dL (8.5-10.1); Carbon Dioxide 26.4 mmol/L (21.0-32.0); Chloride 103 mmol/L (98-107); Estimated GFR (African America 39 (>=60); Estimated GFR (Non-African Ame 32 (>=60); Glucose 122 mg/dL (74-106); Potassium 3.7 mmol/L (3.5-5.1); Sodium 138 mmol/L (136-145); Troponin I High Sensitivity 8.4 pg/mL (4.0-51.3)
[2023-08-10 22:32] LABS: Basophils Percent Auto 0.2 % (0.2-2.0); Eosinophils Absolute Auto 0.2 10^3/uL (0.0-0.7); Eosinophils Percent Auto 2.8 % (0.9-7.0); Hematocrit 37.1 % (36.0-48.0); Hemoglobin 12.2 g/dL (12.0-16.0); Immature Granulocytes Abs Auto 0.02 10^3/uL (0.00-0.03); Immature Granulocytes Pct Auto 0.3 % (0.0-0.5); Lymphocytes Absolute Auto 0.8 10^3/uL (1.2-3.8); Lymphocytes Percent Auto 13.9 % (20.5-60.0); Mean Corpuscular HGB Conc 32.9 g/dL (29.9-35.2); Mean Corpuscular Volume 88.1 fL (81.0-99.0); Mean Platelet Volume 9.5 fL (9.5-13.5); Monocytes Absolute Auto 0.7 10^3/uL (0.3-0.8); Monocytes Percent Auto 11.6 % (1.7-12.0); Neutrophils Absolute Auto 4.3 10^3/uL (1.4-6.5); Neutrophils Percent Auto 71.2 % (43.0-75.0); Platelet Count 161 10^3/uL (150-450); Red Blood Count 4.21 10^6/uL (4.20-5.40); Red Cell Distribution Width 12.7 % (11.0-15.0); White Blood Count 6.1 10^3/uL (4.0-11.0)
== END 2023-08-10 23:14 | disposition home or self-care (01) ==
PROVIDERS: Emergency Provider Emergency Medicine; PCP Family Medicine
DX: F41.9 Anxiety disorder, unspecified (principal); Z79.82 Long term (current) use of aspirin; Z79.899 Other long term (current) drug therapy; Z79.890 Hormone replacement therapy
CPT/HCPCS: 36415; 71045; 80048; 84484; 85025; 93005; 96374; 99285

== ENCOUNTER 2023-08-14 16:04 | Emergency (ER) | payer MEDICARE, SELFPAY ==
[2023-08-14 16:10] VITALS: BP 177/99; PULSE 104; RESP 20; TEMP 36.8; O2SAT 95; BMI 23.4
--- NOTE | 2023-08-14 16:22 | ECG_ITS ---
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
--- NOTE | 2023-08-14 16:41 | ED_ITS ---
HPI - General Adult General Chief complaint: Arrhythmia/Palpitations Stated complaint: Physician Referral Time Seen by Provider: 08/14/23 16:22 Source: patient Mode of arrival: walk-in Limitations: no limitations History of Present Illness HPI narrative: 77-year-old female past medical history hypertension and who has received heart transplant in 2005 presents for feeling lightheaded that started today when she stood up. She states that she came here 4 days ago for nausea, vomiting and diarrhea and was given Zofran. She had 1 episode of vomiting and diarrhea today. She states that her mouth feels dry despite drinking water. Denies fever, abd or back pain, dysuria, SOB or CP Related Data Home Medications Medication Instructions Recorded Confirmed aspirin 81 mg tablet,delayed 81 mg PO DAILY 06/06/23 08/10/23 release citalopram 20 mg tablet (Celexa) 20 mg PO DAILY 06/06/23 08/10/23 clonazepam 1 mg tablet 1 mg PO DAILY PRN anxiety 06/06/23 08/10/23 [id number] 3 cap PO TID 06/06/23 08/10/23 36,000-114,000-180,000 unit capsule,delay rel (Creon) losartan 50 mg tablet 50 mg PO DAILY 06/06/23 08/10/23 magnesium 250 mg tablet 250 mg PO DAILY 06/06/23 08/10/23 metoprolol tartrate 50 mg tablet 50 mg PO Q12H 06/06/23 08/10/23 mycophenolate mofetil 500 mg tablet 500 mg PO BID 06/06/23 08/10/23 omega-3 fatty acids-fish oil 360 1 cap PO DAILY 06/06/23 08/10/23 mg-1,200 mg capsule (Fish Oil) pramipexole 0.5 mg tablet 0.5 mg PO DAILY 06/06/23 08/10/23 simvastatin 20 mg tablet 20 mg PO DAILY 06/06/23 08/10/23 tacrolimus 0.5 mg capsule, 0.5 mg PO Q12H 06/06/23 08/10/23 immediate-release levothyroxine 112 mcg tablet 112 mcg PO QDAY 06/07/23 08/10/23 buspirone 5 mg tablet 5 mg PO QDAY 08/10/23 08/10/23 doxazosin 2 mg tablet 2 mg PO QDAY 08/10/23 08/10/23 levofloxacin 500 mg tablet 500 mg PO Q24H 08/10/23 08/10/23 Previous Rx's Medication Instructions Recorded ondansetron 4 mg disintegrating 4 mg PO Q6H PRN nausea and 06/08/23 tablet vomiting #14 tabs cephalexin 500 mg capsule 500 mg PO Q12H 7 days #14 caps 08/14/23 Allergies Allergy/AdvReac Type Severity Reaction Status Date / Time promethazine [From Phenergan] AdvReac Severe Confusion Verified 06/07/23 14:45 ciprofloxacin [From Cipro] AdvReac Mild HIVES Verified 06/07/23 18:44 Review of Systems ROS Status of ROS 10 or more systems reviewed and unremarkable except as noted in history and below [facility] Medical History (Updated 08/14/23 @ 20:34 by GOPAL Boland) Social History (Updated 06/07/23 @ 22:11 by Lizeth Ho) Within the past year, how often did you have a drink containing alcohol: never Score interpretation: A score less than 3 is consistent with normal alcohol consumption. Smoking status: Never smoker Non-prescribed substance use: denies use Highest level of school completed/degree received: high school graduate Are you now , , , , never or living with a partner: In a typical week, how many times do you talk on the telephone with family, friends, or neighbors: 3 or more times per week How often do you get together with friends or relatives: 3 or more times per week How often do you attend bahai or mandaen services: 4 or more times per year Do you belong to any clubs or organizations such as bahai groups unions, fraternal or athletic groups, or school groups: no Total score: 3 Score interpretation: A score of greater than or equal to 2 indicates the lowest level of social isolation. Little interest or pleasure in doing things: not at all Feeling down, depressed, or hopeless: not at all Feel stressed/tense/nervous/anxious/difficulty sleeping: not at all Do you think of yourself as: straight/heterosexual Gender Identity: female Exam Narrative Exam Narrative: General: A&Ox3, no distress, talking in full an complete sentences skin: warm, dry, intact head: normocephalic, atraumatic eyes: EOMI nose: nares patent neck: supple, trachea midline cardiac: +S1/S1. no murmur respiratory: lungs CTA, non-labored, no wheezing, no retractions abdomen: soft, NT extremities: FROM x 4, strength +5/5 neuro: A&Ox3 psych: appropriate mood and affect, cooperative Constitutional Vital Signs, click to edit/add: Last Vital Signs Temp 98.2 F 08/14/23 16:10 Pulse 72 08/14/23 19:37 Resp 18 08/14/23 19:37 BP 182/88 H 08/14/23 19:37 Pulse Ox 97 08/14/23 19:37 O2 Del Method Room Air 08/14/23 19:37 Course Vital Signs Vital signs: Vital Signs Temperature 98.2 F 08/14/23 16:10 Pulse Rate 104 H 08/14/23 16:10 Respiratory Rate 20 08/14/23 16:10 Blood Pressure 177/99 H 08/14/23 16:10 Pulse Oximetry 95 08/14/23 16:10 Temperature 98.2 F 08/14/23 16:10 Pulse Rate 72 08/14/23 19:37 Respiratory Rate 18 08/14/23 19:37 Blood Pressure 182/88 H 08/14/23 19:37 Pulse Oximetry 97 08/14/23 19:37 Oxygen Delivery Method Room Air 08/14/23 19:37 Medical Decision Making MDM Narrative Medical decision making narrative: Previous ER record reviewed. It appears that she was here for anxiety. Her 1 year ago around this time. EKG sinus rhythm with an incomplete right bundle branch block at a rate of 99 and similar to previous EKGs. Creatinine 1.75 and this is around her normal. No other significant lab normalities. No acute findings on final read of chest x-ray. Upon recheck, ping murillo is asking for food because she is hungry. UA positive for leukocytes, WBCs and bacteria with few epithelial cells and after further questioning she states that she has had a little bit of lower back pain start within a couple days that she thought was muscular because she has been moving things around, will treat for UTI with Keflex and given a prescription and follow-up family doctor. afebrile, not tachypneic, not tachycardic, tolerating p.o., not hypoxic, non toxic appearing and ambulating at baseline and hemodynamically stable to be d/c. answered all questions. educated on SE of meds. pt in agreement with tx. educated when to return to ER. Lab Data Labs: Lab Results 08/14/23 08/14/23 Range/Units 16:48 17:44 WBC 5.4 (4.0-11.0) 10^3/uL RBC 4.24 (4.20-5.40) 10^6/uL Hgb 12.5 (12.0-16.0) g/dL Hct 38.1 (36.0-48.0) % MCV 89.9 (81.0-99.0) fL MCH 29.5 (26.7-34.0) pg MCHC 32.8 (29.9-35.2) g/dL RDW 12.9 (11.0-15.0) % Plt Count 164 (150-450) 10^3/uL MPV 9.5 (9.5-13.5) fL Neut % (Auto) 71.8 (43.0-75.0) % Lymph % (Auto) 13.7 L (20.5-60.0) % [place] % (Auto) 10.0 (1.7-12.0) % Eos % (Auto) 3.7 (0.9-7.0) % Baso % (Auto) 0.4 (0.2-2.0) % Neut # (Auto) 3.9 (1.4-6.5) 10^3/uL Lymph # (Auto) 0.7 L (1.2-3.8) 10^3/uL [place] # (Auto) 0.5 (0.3-0.8) 10^3/uL Eos # (Auto) 0.2 (0.0-0.7) 10^3/uL Baso # (Auto) 0.0 (0.0-0.1) 10^3/uL Abs Immat Gran (auto) 0.02 (0.00-0.03) 10^3/uL Imm/Tot Granulo (auto) 0.4 (0.0-0.5) % PT 11.4 (9.0-11.6) sec INR 1.08 Sodium 141 (136-145) mmol/L Potassium 3.9 (3.5-5.1) mmol/L Chloride 105 (98-107) mmol/L Carbon Dioxide 26.6 (21.0-32.0) mmol/L Anion Gap 13.3 BUN 26.0 H (7.0-18.0) mg/dL Creatinine 1.75 H (0.55-1.02) mg/dL Est GFR ( Amer) 34 L (>=60) Est GFR (Non-Af Amer) 28 L (>=60) BUN/Creatinine Ratio 14.9 Glucose 173 H (74-106) mg/dL Calcium 8.4 L (8.5-10.1) mg/dL Magnesium 1.8 (1.8-2.4) mg/dL Total Bilirubin 0.5 (0.2-1.0) mg/dL AST 16 (15-37) U/L ALT 13 L (14-59) U/L Alkaline Phosphatase 115 (46-116) U/L Troponin I High Sens 15.0 (4.0-51.3) pg/mL NT-Pro-B Natriuret Pep 905.0 (<=1800.0) pg/mL Total Protein 6.1 L (6.4-8.2) g/dL Albumin 3.1 L (3.4-5.0) g/dL Globulin 3.0 g/dL Albumin/Globulin Ratio 1.0 Urine Color Lt. yellow (YELLOW) Urine Clarity Clear (CLEAR) Urine pH 6.0 (5.0-9.0) Ur Specific [place] 1.020 (1.005-1.025) Urine Protein 100 A (NEG/TRACE) mg/dL Urine Glucose (UA) Negative (NEGATIVE) mg/dL Urine Ketones Negative (NEGATIVE) mg/dL Urine Occult Blood Negative (NEGATIVE) Urine Nitrite Negative (NEGATIVE) Urine Bilirubin Negative (NEGATIVE) Urine Urobilinogen 0.2 (0.2-1.0) EU/dL Ur Leukocyte Esterase Trace A (NEGATIVE) Urine RBC 2-5 A (0-2) #/HPF Urine WBC 10-20 A (NONE SEEN) #/HPF Ur Squamous Epith Cells Few A (NONE/RARE) #/LPF Urine Crystals None seen (None Seen) #/HPF Urine Bacteria Trace A (NONE SEEN) #/HPF Urine Casts Seen A (NONE SEEN) #/LPF Hyaline Casts Rare Urine Mucus None seen (NONE SEEN) Discharge Plan Discharge Chief Complaint: Arrhythmia/Palpitations Clinical Impression: Dizziness, Acute UTI Patient Disposition: Home, Self-Care Time of Disposition Decision: 20:34 Condition: Good Mode of Transportation: Private Vehicle Prescriptions / Home Meds: New cephalexin 500 mg capsule 500 mg PO Q12H 7 Days Qty: 14 0RF No Action levothyroxine 112 mcg tablet 112 mcg PO QDAY ondansetron 4 mg tablet,disintegrating 4 mg PO Q6H PRN (Reason: nausea and vomiting) Qty: 14 0RF buspirone 5 mg tablet 5 mg PO QDAY doxazosin 2 mg tablet 2 mg PO QDAY levofloxacin 500 mg tablet 500 mg PO Q24H citalopram [Celexa] 20 mg tablet 20 mg PO DAILY metoprolol tartrate 50 mg tablet 50 mg PO Q12H losartan 50 mg tablet 50 mg PO DAILY pramipexole 0.5 mg tablet 0.5 mg PO DAILY aspirin 81 mg tablet,delayed release (DR/EC) 81 mg PO DAILY mycophenolate mofetil 500 mg tablet 500 mg PO BID tacrolimus 0.5 mg capsule 0.5 mg PO Q12H clonazepam 1 mg tablet 1 mg PO DAILY PRN (Reason: anxiety) simvastatin 20 mg tablet 20 mg PO DAILY Creon 36,000-114,000- 180,000 unit capsule,delayed release(DR/EC) 3 cap PO TID Rx Instructions: administer with meals and/or snacks magnesium 250 mg tablet 250 mg PO DAILY omega-3 fatty acids-fish oil [Fish Oil] 360-1,200 mg capsule 1 cap PO DAILY Instructions: Dizziness (ED), Urinary Tract Infection in Older Adults (ED) Stand Alone Forms: Portal Instructions Referrals: Vijay Davis MD [Primary Care Provider] - 1 week
--- NOTE | 2023-08-14 16:45 | XR_ITS ---
[facility] [id number] Patient Name: SYLVIA HANNA MRN: [id number] date: 1945 Sex: F Assigned Patient Location: ER Current Patient Location: ER Accession/Order Number: [id number] Exam Date: 08/14/2023 16:53 Report Date: 08/14/2023 17:51 At the request of: ALLEN KUO Procedure: XR chest 1V ONE-VIEW CHEST RADIOGRAPH, 08/14/2023 4:53 PM EDT COMPARISON: Chest, 08/10/2023. CLINICAL HISTORY: pain/heart palpitations and shortness of breath. Findings and impression: 1. Minimal atelectasis in the lingula suspected. Lungs otherwise clear. 2. Patient has a history of heart transplant in 2005. Stable heart size. 3. No acute osseous abnormality. Electronically authenticated by: Andrew BORREGO Date: 08/14/2023 17:51
[2023-08-14 16:58] LABS: Basophils Percent Auto 0.4 % (0.2-2.0); Eosinophils Absolute Auto 0.2 10^3/uL (0.0-0.7); Eosinophils Percent Auto 3.7 % (0.9-7.0); Hematocrit 38.1 % (36.0-48.0); Hemoglobin 12.5 g/dL (12.0-16.0); Immature Granulocytes Abs Auto 0.02 10^3/uL (0.00-0.03); Immature Granulocytes Pct Auto 0.4 % (0.0-0.5); Lymphocytes Absolute Auto 0.7 10^3/uL (1.2-3.8); Lymphocytes Percent Auto 13.7 % (20.5-60.0); Mean Corpuscular HGB Conc 32.8 g/dL (29.9-35.2); Mean Corpuscular Hemoglobin 29.5 pg (26.7-34.0); Mean Corpuscular Volume 89.9 fL (81.0-99.0); Mean Platelet Volume 9.5 fL (9.5-13.5); Monocytes Absolute Auto 0.5 10^3/uL (0.3-0.8); Neutrophils Absolute Auto 3.9 10^3/uL (1.4-6.5); Neutrophils Percent Auto 71.8 % (43.0-75.0); Platelet Count 164 10^3/uL (150-450); Red Blood Count 4.24 10^6/uL (4.20-5.40); Red Cell Distribution Width 12.9 % (11.0-15.0); White Blood Count 5.4 10^3/uL (4.0-11.0)
[2023-08-14 17:09] LABS: INR 1.08; Prothrombin Time 11.4 sec (9.0-11.6)
[2023-08-14 17:15] LABS: Alanine Aminotransferase 13 U/L (14-59); Albumin Level 3.1 g/dL (3.4-5.0); Alkaline Phosphatase 115 U/L (46-116); Anion Gap 13.3; Aspartate Amino Transferase 16 U/L (15-37); BUN Creatinine Ratio 14.9; Bilirubin Total 0.5 mg/dL (0.2-1.0); Calcium 8.4 mg/dL (8.5-10.1); Carbon Dioxide 26.6 mmol/L (21.0-32.0); Chloride 105 mmol/L (98-107); Estimated GFR (African America 34 (>=60); Estimated GFR (Non-African Ame 28 (>=60); Glucose 173 mg/dL (74-106); Magnesium 1.8 mg/dL (1.8-2.4); Potassium 3.9 mmol/L (3.5-5.1); Sodium 141 mmol/L (136-145); Total Protein 6.1 g/dL (6.4-8.2)
[2023-08-14 19:14] LABS: Bilirubin Urine NEGATIVE (NEGATIVE); Blood Urine NEGATIVE (NEGATIVE); Clarity Urine CLEAR (CLEAR); Color Urine LT. YELLOW (YELLOW); Glucose Urine UA NEGATIVE (NEGATIVE); Ketones Urine NEGATIVE (NEGATIVE); Leukocyte Esterase Urine TRACE (NEGATIVE); Nitrite Urine NEGATIVE (NEGATIVE); Protein Urine 100 mg/dL (NEG/TRACE); Urobilinogen Urine 0.2 EU/dL (0.2-1.0)
[2023-08-14 19:37] VITALS: BP 182/88; PULSE 72; RESP 18; O2SAT 97
[2023-08-14 20:24] LABS: Bacteria Urine TRACE #/HPF (NONE SEEN); Cast Seen? SEEN #/LPF (NONE SEEN); Crystals Seen? None Seen #/HPF (None Seen); Hyaline Casts Urine RARE; Mucus Urine NONE SEEN (NONE SEEN); Squamous Epithelial Cell Urine FEW #/LPF (NONE/RARE)
[2023-08-14 20:38] VITALS: BP 194/96; PULSE 72; RESP 20; O2SAT 98
[2023-08-14] MEDS: CEPHALEXIN 500 MG CAPSULE PO (20:48)
== END 2023-08-14 21:06 | disposition home or self-care (01) ==
PROVIDERS: Physician Assistant; Emergency Provider Emergency Medicine; PCP Family Medicine
DX: N39.0 Urinary tract infection, site not specified (principal); R42 Dizziness and giddiness; I10 Essential (primary) hypertension; Z94.1 Heart transplant status; Z79.82 Long term (current) use of aspirin; Z79.899 Other long term (current) drug therapy; Z79.890 Hormone replacement therapy
CPT/HCPCS: 36415; 71045; 80053; 81001; 83735; 83880; 84484; 85025; 85610; 93005; 99285

== ENCOUNTER 2023-08-26 08:41 | Outpatient (OUT) | payer MEDICARE, SELFPAY ==
--- NOTE | 2023-08-26 | NM_ITS ---
Patient: SYLVIA HANNA Exam Date: 08/26/2023 : 1945 Gender:F Ordering : DR ANISHA DINH M.D. Admission #: [id number] Family : DR Vijay Davis . Order #: [id number] CLICK HERE TO VIEW EXAM RADIOLOGY REPORT PROCEDURE: NM JALYN PERF SPECT REST STR COMPARISON: None. INDICATIONS: STATUS POST HEART TRANSPLANTATION, FATIGUE TECHNIQUE: Exam Description: Stress/Rest one day protocol gated SPECT Rest Imagin.7 mCi Tc-99m Cardiolite IV on 08/26/2023 Stress Imaging 31.5 mCi Tc-99m Cardiolite IV on 08/26/2023 Exercise Protocol: 0.4 mg Lexiscan given IV Heart Rate (bpm): Rest: 57 Max: 76 PMHR: 53 Blood Pressure: Rest: 150/108 Max: 158/88 Symptoms: Rest and peak stress ECG findings were normal and the exercise portion of the study was normal per attending physician Dr. Covington . For more details please see separate cardiac stress test report. FINDINGS: QUALITY OF STUDY: Excellent. PERFUSION DEFECT: None. LOCATION: N/A SIZE: N/A. SEVERITY: N/A. TYPE: N/A. WALL MOTION: Normal. LV SIZE: Normal. 71 mL. TID / TCD: None; 0.9 LVEF: Normal. Calculated EF 78%. SUMMARY: Myocardial perfusion imaging study is NORMAL. CONCLUSION: 1. Normal myocardial perfusion scan 2. Normal exercise test Dictated by: Dallin Ibrahim MD on 08/28/2023 at 12:24 Approved by: Dallin Ibrahim MD on 08/28/2023 at 12:25
[2023-08-26] MEDS: REGADENOSON 0.4 MG/5 ML SYRINGE IV (10:28)
--- NOTE | 2023-08-26 19:55 | P.STRESS_ITS ---
Stress Test Stress Test Allergies Allergy/AdvReac Type Severity Reaction Status Date / Time promethazine [From Phenergan] AdvReac Severe Confusion Verified 06/07/23 14:45 ciprofloxacin [From Cipro] AdvReac Mild HIVES Verified 06/07/23 18:44 Requesting physician: ANISHA DINH Procedure: Lexiscan Myocardial perfusion Scan General Information: Reason for Stress Test: [S/p heart transplant] Cardiac History and Risk Factors: [Heart transplant, Cardiomyopathy?] Resting 12 - Lead Electrocardiogram: Sinus bradycardia, rightward axis deviation, septal infarct age indeterminant. Abnormal EKG Stress Test: Stress test protocol: Lexiscan myocardial perfusion scan Resting heart rate: 57 bpm Max heart rate: 76 bpm Resting blood pressure: 150/108 Maximum blood pressure: 158/88 ST changes: No definitive ST changes meeting the criteria for ischemia Interpretation: 1. Abnormal resting EKG 2. No definitive EKG changes meeting the criteria for ischemia post Lexiscan infusion 3. Please refer to separately interpreted and reported myocardial perfusion im aging. 4. Clinical correlation recommended
== END 2023-08-26 08:42 | disposition home or self-care (01) ==
LOC: NM 08:42
PROVIDERS: PCP Family Medicine; Visit Provider Internal Medicine Interventional Cardiology
DX: Z94.1 Heart transplant status (principal)
CPT/HCPCS: 78452; 93017; A9500; J2785

== ENCOUNTER 2023-09-05 08:00 | Outpatient (OUT) | payer MEDICARE, SELFPAY ==
[2023-09-05 09:27] LABS: Alanine Aminotransferase 19 U/L (14-59); Albumin Globulin Ratio 1.1; Albumin Level 3.7 g/dL (3.4-5.0); Alkaline Phosphatase 119 U/L (46-116); Anion Gap 13.5; Aspartate Amino Transferase 21 U/L (15-37); BUN Creatinine Ratio 17.5; Bilirubin Total 0.9 mg/dL (0.2-1.0); Calcium 9.2 mg/dL (8.5-10.1); Carbon Dioxide 25.9 mmol/L (21.0-32.0); Chloride 100 mmol/L (98-107); Chol HDL Ratio 2.8; Cholesterol 138 mg/dL (<=200); Estimated GFR (African America 34 (>=60); Estimated GFR (Non-African Ame 28 (>=60); Globulin 3.3 g/dL; Glucose 103 mg/dL (74-106); HDL Cholesterol 50 mg/dL (40-60); LDL Cholesterol Calculated 69.8 mg/dL; Potassium 4.4 mmol/L (3.5-5.1); Sodium 135 mmol/L (136-145); Triglycerides 91 mg/dL (<=150); VLDL CHOLESTEROL 18.2 mg/dL
== END 2023-09-05 08:01 | disposition home or self-care (01) ==
LOC: LAB 08:03
PROVIDERS: PCP Family Medicine; Visit Provider Nurse Practitioner Family
DX: E78.5 Hyperlipidemia, unspecified (principal)
CPT/HCPCS: 36415; 80053; 80061

== ENCOUNTER 2023-09-05 08:06 | Outpatient (OUT) | payer MEDICARE, SELFPAY ==
[2023-09-07 12:08] LABS: Tacrolimus (FK506), Blood 3.6 ng/mL (2.0-20.0)
== END 2023-09-05 08:07 | disposition home or self-care (01) ==
LOC: LAB 08:08
PROVIDERS: PCP Family Medicine; Visit Provider Internal Medicine Interventional Cardiology
DX: E78.5 Hyperlipidemia, unspecified (principal); Z94.1 Heart transplant status
CPT/HCPCS: 36415; 80053; 80061; 80197

== ENCOUNTER 2023-10-16 08:14 | Outpatient (OUT) | payer MEDICARE, MEDICAID, SELFPAY ==
[2023-10-19 00:07] LABS: Tacrolimus (FK506), Blood 1.4 ng/mL (2.0-20.0)
== END 2023-10-16 08:15 | disposition home or self-care (01) ==
LOC: LAB 08:16
PROVIDERS: PCP Family Medicine; Visit Provider Internal Medicine Interventional Cardiology
DX: Z94.1 Heart transplant status (principal)
CPT/HCPCS: 36415; 80197

== ENCOUNTER 2023-11-21 11:20 | Outpatient (OUT) | payer MEDICARE, MEDICAID, SELFPAY ==
--- OUTSIDE RECORDS SUMMARY | 2023-11-21 11:25 | XMS_ITS | CCD ---
Author Name Unknown Address [address] [place] [address] Organization [facility] Care Team Providers Care Milk Deliverer Name Role Phone Tao Rooney MD Primary Care Provider [phone] DUYEN ROGERS Primary Care Physician Tao Rooney MD Primary Care Provider [phone] NICOLETTE RICE Attending UnavailARELIS Rivera Referring Unavailable TAO ROONEY Primary Care Unavailable Tao Rooney MD Primary Care Provider [phone] TORIBIO Sanchez, DR BURGER Primary Care Unavailable MISC, DR LOONEY Consulting Unavailable MISC, DR LOONEY Attending Unavailable MISC, DR LOONEY Admitting Unavailable TORIBIO ., DR BURGER Primary Care Unavailable TORIBIO ., DR BURGER Admitting Unavailable TORIBIO ., DR BURGER Consulting Unavailable TORIBIO ., DR BURGER Attending Unavailable TORIBIO ., DR BURGER Primary Care Unavailable MOUKAHERMILO, DR LANCASTER Admitting Unavailable MOFANNY, DR LANCASTER Attending Unavailable DUYEN ROGERS Consulting Unavailable TORIBIO ., DR BURGER Primary Care Unavailable DUYEN ROGERS Admitting Unavailable DUYEN ROGERS Attending Unavailable TORIBIO ., DR BURGER Primary Care Unavailable MISC, DR LOONEY Consulting Unavailable MISC, DR LOONEY Attending Unavailable MISC, DR LOONEY Admitting Unavailable NANCY BARFIELD Attending Unavailable KAEL .GOPAL Consulting Unavailabl e TORIBIO Sanchez, DR BURGER Primary Care Unavailable AMY Sanchez, NANCY Admitting Unavailable JAZLYN DUBOSE Consulting Unavailable AMY Sanchez, NANCY Consulting Unavailable CAMERON NELSNO Consulting Unavaila karen Sanchez, DR BURGER Primary Care Unavailable MOUKARBEL, DR LANCASTER Admitting Unavailable MOUKARBEL, DR LANCASTER Attending Unavailable DUYEN ROGERS Attending Unavailable HOY ., DR BURGER Primary Care Unavailable ZIEBER, DR HAI Chambers Consulting Unavailable SUE, DUYEN Admitting Unavailable SUEDUYEN Consulting Unavailable HOY ., DR BURGER Primary Care Unavailable HOY ., DR BURGER Admitting Unavailable HOY ., DR BURGER Consulting Unavailable HOY ., DR BURGER Attending Unavailable ORLANDO, DR JAZLYN Marcelino Consulting Unavailable DUYEN ROGERS Consulting Unavailable SUE, DUYEN Admitting Unavailable HOY ., DR BURGER Primary Care Unavailable DUYEN ROGERS Attending Unavailable MOUKARBEL, DR LANCASTER Consulting Unavailable HOY ., DR BURGER Primary Care Unavailable MOUKARBEL, DR LANCASTER Admitting Unavailable MOUKARBEL, DR LANCASTER Attending Unavailable HOY ., DR BURGER Primary Care Unavailable MISC, DR LOONEY Admitting Unavailable MISC, DR LOONEY Consulting Unavailable MISC, DR LOONEY Attending Unavailable HOY ., DR BURGER Primary Care Unavailable MISC, DR LOONEY Consulting Unavailable MISC, DR LOONEY Attending Unavailable MISC, DR LOONEY Admitting Unavailable DUYEN ROGERS Consulting Unavailable HOY ., DR BURGER Admitting Unavailable HOY ., DR BURGER Primary Care Unavailable HOY ., DR BURGER Attending Unavailable MOUKARBEL, DR LANCASTER Attending Unavailable MOUKARBEL, DR LANCASTER Consulting Unavailable HOY ., DR BURGER Primary Care Unavailable MOUKARBEL, DR LANCASTER Admitting Unavailable HOY ., DR BURGER Primary Care Unavailable MISC, DR LOONEY Admitting Unavailable MISC, DR LOONEY Consulting Unavailable MISC, DR LOONEY Attending Unavailable HOY ., DR BURGER Primary Care Unavailable HOY ., DR BURGER Attending Unavailable HOY ., DR BURGER Admitting Unavailable HOY ., DR BURGER Consulting Unavailable AMY ., NANCY Admitting Unavailable AMY ., NANCY Attending Unavailable HOY ., DR BURGER Primary Care Unavailable ADELINE FLORES Consulting Unavailable ALEXSANDER HARDING Consulting Unavailable AMY ., NANCY Consulting Unavailable DUYEN ROGERS Attending Unavailable HOY ., DR BURGER Primary Care Unavailable SUE, DUYEN Consulting Unavailable SUE, DUYEN Admitting Unavailable SALAM, Mrogan Admitting Unavailable SALAM, Morgan Attending Unavailable SALAM, Morgan Admitting Unavailable SALAM, Morgan Attending Unavailable Richard Ca S. Attending Unavailable SALAM, Morgan Attending Unavailable SUE, DUYEN S Referring ANISHA Dorman Attending ANISHA Dorman Attending Unavailable ANISHA DINH Attending Unavailable ANISHA DINH Attending Unavailable Allergies Allergy Classification Reported Allergen(s) Allergy Type Date of Onset Reaction(s) Facility (10 sources) Acetaminophen / oxyCODONE; Translations: [OXYCODONE-ACETAM INOPHEN] Drug Allergy 05-18-20 14 [facility] Upset Work Phone: (11 sources) Promethazine; Translations: [PROMETHAZINE HCL] Drug Allergy 10-11-20 05 Other: See Comments (3 sources) Levamisole; Translations: [Phenergan] Drug Allergy 04-07-20 13 [facility] Repository (1 source) Morphine Drug Allergy [facility] Repository (1 source) No Known Medication Allergies; Translations: [No Known Medication Allergies] Propensity to adverse reactions (disorder) [facility] Repository (2 sources) Promethazine; Translations: [promethazine] Drug Allergy 08-12-20 22 Loss of consciousness (finding) [facility] Medications Current Medications Medication Drug Class(es) Dates Sig (Normalized) Sig (Original) alendronic acid 70 mg oral tablet (11 sources) Bisphosphonate Start: 01-07-2014 take 1 mg by mouth every week Fosamax 70 mg oral tablet mg tab(s), Oral, qWeek, Refills(s) 0 Start Date: 07/10/22 Status: Ordered Comment on above: Take 1 tablet by bettina once each week. in the morning with a full glass of water, on an empty stomach, and do not take anything else by mouth or lie down for the next 30 minutes. Creon (11 sources) Start: 07-10-2022 Creon Oral, TID, Refills(s) 0 Start Date: 07/10/22 Status: Ordered lipase-protease- amylase (CREON) 24,000-76,000 -120,000 unit cpDR Take 3 capsules by mouth three times daily with meals. TAKE 3 CAPSULES THREE TIMES A DAY WITH MEALS AND 1 CAPSULE IF HAVING A SNACK 0 Active Comment on above: Take 3 capsules by m out three times daily with meals. TAKE 3 CAPSULES THREE TIMES A DAY WITH MEALS AND 1 CAPSULE IF HAVING A SNACK Aspirin (11 sources) Platelet Aggregation Inhibitor, Nonsteroidal Anti-inflammatory Drug Start: 07-10-2022 aspirin Refills(s) 0 Start Date: 07/10/22 Status: Ordered Start: 12-28-2009 aspirin(ECOTRI N LOW STRENGTH 81 MG TAB) Take one(1) tablet daily. 0 12/28/2009 Active Comment on above: Take one(1) tablet d aily. Bupropion (11 sources) Aminoketone Start: 07-10-2022 buPROPion Oral, Refills(s) 0 Start Date: 07/10/22 Status: Ordered Start: 11-14-2017 take 1 tablet by bettina th once daily buPROPion XL (WELLBUTRIN XL) 300 mg 24 hr tablet Take 1 tablet by mouth once daily. 0 11/14/2017 Active Comment on above: Take 1 tablet by bettina th once daily. Cipro (2 sources) Quinolone Antimicrobial Start: 07-10-2022 Cipro Oral, q12hr, Refills(s) 0 Start Date: 07/10/22 Status: Ordered clonazePAM (9 sources) Benzodiazepine Start: 07-10-2022 clonazepam Oral, TID, Refills(s) 0 Start Date: 07/10/22 Status: Ordered Start: 03-04-2019 clonazePAM (KL ONOPIN) 0.5 mg tablet Take 2 tablets by mouth as needed for up to 180 days. 0 03/04/2019 Active Comment on above: Take 2 tablets by mo uth as needed for up to 180 days. Synthroid (11 sources) l-Thyroxine Start: 07-10-2022 Synthroid Oral, Daily, Refills(s) 0 Start Date: 07/10/22 Status: Ordered Start: 03-04-2019 take 1 tablet by bettina th once daily levothyroxine (SYNTHROID) 88 mcg tablet Take 1 tablet by mouth once daily. 0 03/04/2019 Active Comment on above: Take 1 tablet by bettina th once daily. Losartan (11 sources) Angiotensin 2 Receptor Avtar Start: 07-10-2022 losartan Oral, Daily, Refills(s) 0 Start Date: 07/10/22 Status: Ordered Start: 03-04-2019 take 1 tablet by bettina th once daily losartan (COZAAR) 100 mg tablet Take 1 tablet by mouth once daily. 0 03/04/2019 Active Comment on above: Take 1 tablet by bettina th once daily. Meclizine (2 sources) Antiemetic Start: 07-10-2022 meclizine TID, Refills(s) 0 Start Date: 07/10/22 Status: Ordered Metoprolol (2 sources) beta-Adrenergic Avtar Start: 07-10-2022 metoprolol Refills(s) 0 Start Date: 07/10/22 Status: Ordered perflutren lipid microspheres 1.3 mL in NaCl (PF) 0.9% 10 mL injection (DEFINITY) (9 sources) Start: 02-09-2022 End: 05-11-2023 perflutren lipid microspheres 1.3 mL in NaCl (PF) 0.9% 10 mL injection (DEFINITY) Pramipexole (11 sources) Nonergot Dopamine Agonist Start: 07-10-2022 pramipexole Oral, Refills(s) 0 Start Date: 07/10/22 Status: Ordered Start: 04-25-2015 take 1 tablet by bettina th once daily at bedtime pramipexole (MIRAPEX) 0.25 mg tablet Take 1 tablet by mouth daily at bedtime. 0 04/25/2015 Active Comment on above: Take 1 tablet by bettina th daily at bedtime. predniSONE (2 sources) Start: 07-10-2022 predniSONE Oral, Daily, Refills(s) 0 Start Date: 07/10/22 Status: Ordered Simvastatin (11 sources) HMG-CoA Reductase Inhibitor Start: 07-10-2022 simvastatin Oral, Refills(s) 0 Start Date: 07/10/22 Status: Ordered Start: 05-29-2017 take 1 tablet by bettina th once daily at bedtime simvastatin (ZOCOR) 20 mg tablet Take 1 tablet by mouth daily at bedtime. 90 tablet 3 05/29/2017 Active Comment on above: Take 1 tablet by bettina th daily at bedtime. 125 ml sodium chloride 9 mg/ml prefilled syringe (9 sources) Start: 02-09-2022 End: 05-11-2023 sodium chloride 0.9 % (flush) 10 mL (BD POSIFLUSH) Tacrolimus (15 sources) Calcineurin Inhibitor Immunosuppressant Start: 07-10-2022 tacrolimus Refills(s) 0 Start Date: 07/10/22 Status: Ordered Start: 07-05-2022 take 1 capsule by mo uth once daily tacrolimus IR (PROGRAF) 0.5 mg capsule Indications: Heart transplanted (HCC) Take 1 capsule by mouth once daily. 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 No Dr Don 0 07/05/2022 Active Start: 05-08-2022 End: 07-05-2022 take 1 capsule by mouth twice daily tacrolimus IR (PROGRAF) 0.5 mg capsule Indications: Heart transplanted (HCC) Take 1 capsule by mouth twice daily. 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 No Dr Don 0 05/08/2022 07/05/2022 Discontinued Start: 10-12-2021 End: 05-08-2022 take 1 capsule by mouth once daily in the morning tacrolimus IR (PROGRAF) 0.5 mg capsule Indications: Heart transplanted (HCC) Take 1 capsule by mouth once daily in AM. 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 No Dr Don 0 04/12/2022 05/08/2022 Discontinued Comment on above: Take 1 capsule by mo uth daily in AM and 1 capsule by mouth daily in PM. 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 No Dr Don Take 1 capsule by mo uth once daily in AM. 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 No Dr Don Take 1 capsule by mo uth twice daily. 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 No Dr Don Take 1 capsule by mo uth once daily. 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 No Dr Don Completed/Discontinued Medications Medication Drug Class(es) Dates Sig (Normalized) Sig (Original) acetaminophen 325 mg oral tablet (9 sources) Start: 04-30-2014 take 325-650 mg by mouth every four hours as needed acetaminophen 325 mg tablet Take 1-2 tablets by mouth every 4 hours as needed. 0 04/30/2014 Active Comment on above: Take 1-2 tablets by mouth every 4 hours as needed. amitriptyline hydrochloride 10 mg oral tablet (9 sources) Tricyclic Antidepressant Start: 09-02-2019 take 1 tablet by mouth once daily at bedtime amitriptyline (ELAVIL) 10 mg tablet Take 1 tablet by mouth daily at bedtime. 0 09/02/2019 Active Comment on above: Take 1 tablet by bettina th daily at bedtime. cholecalciferol 0.025 mg oral tablet (9 sources) Vitamin D Start: 04-01-2012 take 1 tablet by mouth once daily Cholecalciferol, Vitamin D3, (VITAMIN D) 1,000 unit Tab Take 1 tablet by mouth once daily. 0 04/01/2012 Active Comment on above: Take 1 tablet by bettina th once daily. loperamide hydrochloride 2 mg oral tablet (9 sources) Opioid Agonist take 1 tablet by mouth three times daily Loperamide HCl (IMODIUM) 2 mg tab Take 2 mg by mouth three times daily. 0 Active Comment on above: Take 2 mg by mouth t hree times daily. magnesium oxide 400 mg oral tablet (9 sources) Start: 03-04-2019 take 1 tablet by mouth once daily magnesium oxide (MAG-OX) 400 mg (241.3 mg magnesium) tablet Take 1 tablet by mouth once daily. 0 03/04/2019 Active Comment on above: Take 1 tablet by bettina th once daily. MULTIVITAMIN TAB (9 sources) Start: 09-06-2006 MULTIVITAMIN TAB Indications: Other and unspecified adverse effect of drug, medicinal and biological substance , Encounter for long-term (current) use of steroids Take one(1) tablet daily. 0 09/06/2006 Active Comment on above: Take one(1) tablet d aily. mycophenolate mofetil 250 mg oral capsule (12 sources) Start: 07-26-2022 End: 09-11-2022 take 2 capsules by mouth once daily in the morning, then take 2 capsules by mouth once daily in the evening mycophenolate mofetil (CELLCEPT) 250 mg capsule take 2 capsules by mouth every morning and 2 capsules every evening. 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 360 capsule 3 09/11/2022 Active Start: 07-10-2022 CellCept BID, Refills(s) 0 Start Date: 07/10/22 Status: Ordered Start: 09-12-2021 take 2 capsules by m outh once daily in the morning, then take 2 capsules by mouth once daily in the evening mycophenolate mofetil (CELLCEPT) 250 mg capsule take 2 capsules by mouth every morning and 2 capsules every evening. Z94.1 heart replaced by transplant 360 capsule 3 09/12/2021 Active Comment on above: take 2 capsules by m outh every morning and 2 capsules every evening. 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 omega-3 fatty acids 1,000 mg cap (9 sources) Start: 03-12-2014 take 2 capsules by mouth once daily omega-3 fatty acids 1,000 mg cap Indications: Heart replaced by transplant (HCC) Take 2 capsules by mouth once daily. 0 03/12/2014 Active Comment on above: Take 2 capsules by m outh once daily. Problems Active Problems Problem Classification Problem Date Documented Date Episodic/Chronic Abdominal pain (11 sources) Right inguinal pain; Translations: [Right lower quadrant pain] Onset: 05-18-2014 07-12-2022 Episodic Acute and unspecified renal failure (2 sources) Chronic renal failure 07-10-2022 Chronic Anxiety disorders (11 sources) Anxiety disorder; Translations: [Anxiety disorder, unspecified] Onset: 07-05-2015 07-05-2015 Chronic Calculus of urinary tract (2 sources) Kidney stone 07-10-2022 Episodic Chronic kidney disease (2 sources) Chronic kidney disease; Translations: [Chronic kidney disease, stage 3b] Onset: 01-07-2023 Congestive heart failure; nonhypertensive (2 sources) Unspecified diastolic (congestive) heart failure; Translations: [Heart failure, unspecified] Onset: 08-08-2022 Chronic Coronary atherosclerosis and other heart disease (2 sources) Coronary arteriosclerosis 07-10-2022 Chronic Deficiency and other anemia (2 sources) Anemia 07-10-2022 Episodic Diabetes mellitus without complication (10 sources) Type 2 diabetes mellitus; Translations: [Type 2 diabetes mellitus without complications] Onset: 04-29-2014 Chronic Essential hypertension (17 sources) Hypertensive disorder; Translations: [Essential (primary) hypertension] Onset: 08-12-2013 07-10-2022 Chronic Fever of unknown origin (4 sources) Fever, unspecified; Translations: [FEVER UNSPECIFIED] Onset: 03-05-2023 Episodic Fluid and electrolyte disorders (1 source) Hypo-osmolality and or hyponatremia; Translations: [Hypo-osmolality and hyponatremia] Onset: 04-08-2023 Episodic Heart valve disorders (1 source) Rheumatic disorders of both mitral and aortic valves; Translations: [RHEUMATIC D/O MITRAL AORTIC VALVES] Onset: 12-19-2022 Chronic Hypertension with complications and secondary hypertension (1 source) Hypertensive heart disease with heart failure; Translations: [HTN HEART DISEASE W/HEART FAIL] Onset: 01-10-2023 Chronic Mood disorders (11 sources) Depressive disorder; Translations: [Depression] Onset: 08-12-2013 07-10-2022 Chronic Nausea and vomiting (2 sources) Nausea and vomiting 07-12-2022 Episodic Noninfectious gastroenteritis (11 sources) Gastroenteritis; Translations: [Noninfective gastroenteritis and colitis, unspecified] Onset: 05-18-2014 07-12-2022 Episodic Nonspecific chest pain (1 source) Chest pain; Translations: [Chest pain, unspecified] Onset: 04-08-2023 Episodic Other aftercare (1 source) Other snf (current) drug therapy; Translations: [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] Onset: 02-18-2023 Episodic Other circulatory disease (7 sources) Heart transplant status; Translations: [HEART TRANSPLANT STATUS] Onset: 08-12-2022 Chronic Other diseases of kidney and ureters (2 sources) Kidney disease 07-10-2022 Episodic Pancreatic disorders (not diabetes) (1 source) Other chronic pancreatitis; Translations: [OTHER CHRONIC PANCREATITIS] Onset: 08-08-2022 Chronic Pancreatic disorders (not diabetes) (4 sources) Disorder of pancreas; Translations: [Pancreatic insufficiency] 07-12-2022 Episodic Jamila-; endo-; and myocarditis; cardiomyopathy (except that caused by tuberculosis or sexually transmitted disease) (2 sources) Heart valve disorder 07-10-2022 Chronic Thyroid disorders (14 sources) Hypothyroidism; Translations: [Hypothyroidism, unspecified] Onset: 08-12-2013 07-10-2022 Chronic Unclassified (1 source) CONTACT W/AND (SUSP) EXPOS COVID-19; Translations: [CONTACT W/AND (SUSP) EXPOS COVID-19] Onset: 11-17-2022 Past or Other Problems Problem Classification Problem Date Documented Da te Episodic/Chronic Acute and unspecified renal failure (9 sources) Acute injury of kidney; Translations: [Acute kidney failure, unspecified] Onset: 12-03-2014 Episodic Genitourinary symptoms and ill-defined conditions (1 source) Personal history of urinary (tract) infections; Translations: [PERS HX URINARY TRACT INFECTIONS] Onset: 08-08-2022 Episodic Malaise and fatigue (3 sources) Weakness; Translations: [WEAKNESS] Onset: 08-04-2022 Episodic Other aftercare (1 source) group home (current) use of aspirin; Translations: [ASSISTED CURRENT USE OF ASPIRIN] Onset: 08-08-2022 Episodic Other lower respiratory disease (1 source) Personal history of pneumonia (recurrent); Translations: [PERSONAL HX OF PNEUMONIA RECURRENT] Onset: 08-08-2022 Episodic Other screening for suspected conditions (not mental disorders or infectious disease) (4 sources) Encounter for screening mammogram for malignant neoplasm of breast; Translations: [ENC SCR MAMMO MALIG NEOPLASM BREAST] Onset: 05-28-2022 Episodic Other upper respiratory infections (8 sources) Acute upper respiratory infection, unspecified; Translations: [Acute maxillary sinusitis, unspecified] Onset: 10-03-2022 Episodic Residual codes; unclassified (9 sources) Prevention status; Translations: [Encounter for other specified prophylactic measures] Onset: 11-29-2014 Episodic Residual codes; unclassified (6 sources) Localized edema; Translations: [LOCALIZED EDEMA] Onset: 01-07-2023 Episodic Residual codes; unclassified (1 source) Pain, unspecified; Translations: [PAIN UNSPECIFIED] Onset: 11-17-2022 Episodic Residual codes; unclassified (1 source) Acquired absence of other specified parts of digestive tract; Translations: [ACQ ABSENCE OTH PART DIGESTV TRACT] Onset: 08-08-2022 Episodic Screening and history of mental health and substance abuse codes (1 source) Personal history of nicotine dependence; Translations: [PERSONAL HISTORY OF NICOTINE DEPEND] Onset: 08-08-2022 Episodic Results Test Name Value Interpretation Reference Range Facility Office Visiton 11-12-2023 Follow-up visit [id number] Sylvia Herrera 1945 F Date Provider Department Center 11/12[facility]20[facility] Family history unknown: Yes Level of Service:81795 NM OFFICE/OUTPATIENT ESTABLISHED MOD MDM 30-39 MIN Normal [facility] 36on 10-26-2023 36 Her tacrolimus level from 10/16/2023 was 1.4. still very low. I believe she is currently taking tacrolimus (Prograf) 0.5 mg bid. I want her to increase to 1 mg bid and obtain another trough level in 2-3 weeks. Normal [facility] Telephoneon 10-26-2023 Telephone [id number] Sylvia Herrera 1945 Date Provider Department Center 10/26/2023 ANISHA JACOBS JULIAN Singhevdolores Hernandez Family History Family history unknown: Yes [facility] Orders Onlyon 09-30-2023 Orders Only [id number] Sylvia Herrera 1945 Date Provider Department Center 09/30/2023 Paresh8-SHELBI TURNER JULIAN Katie [facility] Family History Family history unknown: Yes [facility] 36on 08-15-2023 36 Her Tacrolimus troug h level (taken on 08/06/2023, reported 08/14/2023) was low at 1.4. She is currently taking tacrolimus 0.5 mg once a day. Please have her increase it to 0.5 mg twice a day and have a repeat Tacrolimus trough level in 2 weeks. Her target level is around 5-10 ng/ml. [facility] Telephoneon 08-15-2023 Telephone [id number] Sylvia Herrera 1945 Date Provider Department Center 08/15/2023 ANISHA JACOBS JULIAN [facility] Family History Family history unknown: Yes [facility] Office Visiton 08-07-2023 Follow-up visit [id number] Sylvia Herrera 1945 Date Provider Department Center 08/07/2023 ANISHA JACOBS JULIAN Hernandez Family History Family history unknown: Yes Level of Service:44442 NM OFFICE/OUTPATIENT ESTABLISHED MOD MDM 30-39 MIN Reason for Visit and Comments: Follow-up [087985] - 6 mo f/u no stress test or tacrolimus result as of 08/06 - does she plan on having stress test? [facility] BMPon 04-08-2023 Creatinine [Mass/Vol] 1.3 mg/dL Normal 0.5-1.3 Fis her [facility] Comment on above: Performed By: #### 1 [id number], [id number] ####Maciel [facility] [address] [place] [address] Urea nitrogen [Mass/Vol] 36 mg/dL High 5-21 [facility] Comment on above: Performed By: #### 1 [id number], [id number], [id number] ####[facility] [address] [place] [address] Urea nitrogen/Creatinine [Mass ratio] 28 No Units High 10-20 [facility] Comment on above: Performed By: #### 1 [id number], [id number], [id number] ####[facility] [address] [place] [address] Anion gap [Moles/Vol] 11 mmol/L Normal 6-16 [facility] Comment on above: Performed By: #### 1 [id number], [id number], [id number] ####[facility] [address] [facility] [place] [address] Calcium [Mass/Vol] 8.6 mg/dL Low 8.9-11.1 [facility] Comment on above: Performed By: #### 1 [id number], [id number], [id number] ####[facility] [address] [place] [address] Chloride [Moles/Vol] 99 mmol/L Low 101-111 [facility] Comment on above: Performed By: #### 1 [id number], [id number], [id number] ####[facility] [address] [facility] [place] [address] CO2 [Moles/Vol] 25 mmol/L Normal 21-31 [facility] Comment on above: Performed By: #### 1 [id number], [id number], [id number] ####[facility] [address] [place] [address] Glucose [Mass/Vol] 124 mg/dL Normal 55-199 [facility] Comment on above: Result Comment: If t his glucose result represents a fasting glucose, interpretation should refer to the following reference range: 55-99 mg/dL Performed By: #### 1 [id number], [id number], [id number] ####[facility] [address] [place] [address] Potassium [Moles/Vol] 4.1 mmol/L Normal 3.5-5.3 [facility] Comment on above: Performed By: #### 1 [id number], [id number], [id number] ####[facility] [address] [place] [address] Sodium [Moles/Vol] 131 mmol/L Low 135-145 [facility] Comment on above: Performed By: #### 1 [id number], [id number], [id number] ####[facility] [address] [place] [address] CHEMISTRYOrdered By: SYSTEM SYSTEM on 04-08-2023 Anion gap [Moles/Vol] 11 mmol/L Normal 6 - 16 mEq/L [facility] Calcium [Mass/Vol] 8.6 mg/dL Low 8.9 - 11. 1 mg/dL [facility] Chloride [Moles/Vol] 99 mmol/L Low 101 - 1 11 mmol/L [facility] CO2 [Moles/Vol] 25 mmol/L Normal 21 - 31 mmol/L [facility] Creatinine [Mass/Vol] 1.3 mg/dL Normal 0.5 - 1.3 mg/dL [facility] Remisol GFR/1.73 sq M.predicted among non-blacks MDRD (S/P/Bld) [Vol rate/Area] 42 mL/min/1.73 m2 Low >=59mL/min/1 .73 m2 [facility] Chem S Glucose [Mass/Vol] 124 mg/dL Normal 55 - 199 mg/dL FT Remisol Potassium [Moles/Vol] 4.1 mmol/L Normal 3.5 - 5.3 mmol/L FT Remisol Sodium [Moles/Vol] 131 mmol/L Low 135 - 145 mmol/L FT Remisol Troponin I.cardiac [Mass/Vol] 11.10 pg/mL Normal 10.10 - 27.10 pg/mL FT Remisol Urea nitrogen [Mass/Vol] 36 mg/dL High 5 - 21 mg/dL FT Remisol Urea nitrogen/Creatinine [Mass ratio] 28 mg/mg High 10 - 20 [facility] Remisol Troponin I.cardiac [Mass/Vol] 9.70 pg/mL Low 10.10 - 27.10 pg/mL [facility] Remisol Consent for Treatmenton Consent for Treatment [id number] #1.00CD:127 [facility] Discharge Instructionson Discharge Instructions [id number] [id number]:127 [facility] ED Clinical Summaryon 2022 ED Clinical Summary [place] [id number] ED Clinical Summary Person Information Name: SYLVIA HERRERA Herb/[facility] Age: 77 Years : 1945 Sex: Female Language: Persian PCP: DUYEN ROGERS CNP Marital Status: Single Visit Id: Visit Reason: Shortness of breath; Chest pain; CHEST PAIN Speciality: Acuity: 2 Enc Type: Emergency Med Service: Emergency Arrival: 04/07/2023 21:18:46 Discharge: 04/08/2023 08:52:18 LOS: 000 11:34 Checkin: 04/07/2023 21:18:46 Checkout: 04/08/2023 08:52:18 Dispo Type: Home (Routine DC) EVENTS: Event Name Event Status Request Date/Time Start Date/Time Complete Date/Time Arrive Complete 04/07/2023 21:18:46 04/07/2023 21:18:46 04/07/2023 21:18:46 Document Home Meds Request 04/07/2023 21:18:46 Triage Complete 04/07/2023 21:18:46 04/07/2023 21:28:56 04/07/2023 21:28:56 Bed Assign Complete 04/07/2023 21:18:46 04/07/2023 21:18:46 04/07/2023 21:18:46 Dr Exam Complete 04/07/2023 21:18:46 04/07/2023 21:20:50 04/07/2023 21:20:50 RN Exam Complete 04/07/2023 21:18:46 04/07/2023 21:46:55 04/07/2023 21:46:55 EKG Complete 04/07/2023 21:19:50 04/07/2023 21:21:08 Registration Complete 04/07/2023 21:20:50 04/07/2023 22:27:28 04/07/2023 22:27:28 Pending Labs Complete 04/07/2023 21:25:27 04/08/2023 06:01:49 Lab Complete 04/07/2023 21:25:27 04/07/2023 21:50:58 Patient Care Request 04/07/2023 21:25:27 RT Request 04/07/2023 21:25:27 X-Ray Complete 04/07/2023 21:25:27 04/07/2023 21:56:07 04/07/2023 22:14:04 Pending Labs Complete 04/07/2023 21:35:53 04/07/2023 21:35:53 04/07/2023 21:50:58 Lab Complete 04/07/2023 21:35:53 04/07/2023 21:35:53 04/07/2023 21:50:58 Pending Labs Complete 04/07/2023 21:38:37 04/07/2023 21:38:37 04/07/2023 21:38:43 Lab Complete 04/07/2023 21:38:37 04/07/2023 21:38:37 04/07/2023 21:38:43 Wet Read Request 04/07/2023 22:14:04 Reg Complete Request 04/07/2023 22:27:28 Reg Bed Request Complete 04/07/2023 22:27:28 04/07/2023 22:27:28 04/07/2023 22:27:28 Meds Admin Request 04/07/2023 23:05:46 Pending Labs Complete 04/08/2023 02:15:22 04/08/2023 03:49:15 Lab Complete 04/08/2023 02:15:22 04/08/2023 03:49:15 Meds Admin Complete 04/08/2023 02:15:22 04/08/2023 03:13:24 Pending Labs Complete 04/08/2023 03:32:21 04/08/2023 03:32:21 04/08/2023 04:02:05 Pending Labs Complete 04/08/2023 03:35:28 04/08/2023 03:35:28 04/08/2023 03:49:15 Lab Complete 04/08/2023 03:35:28 04/08/2023 03:35:28 04/08/2023 03:49:15 Discharge Complete 04/08/2023 04:29:52 04/08/2023 08:56:01 04/08/2023 08:56:01 Transfer Complete 04/08/2023 08:56:01 04/08/2023 08:56:01 04/08/2023 08:56:01 ADDRESS: [address] [place] [phone] PHYS DOC NOTES: MEDICAL INFORMATION: Prescriptions Given: Medications to Continue with No Changes Other Medications alendronate (Fosamax 70 mg oral tablet) By Mouth every week. aspirin buPROPion By Mouth. ciprofloxacin (Cipro) By Mouth every 12 hours. clonazepam By Mouth 3 times a day. levothyroxine (Synthroid) By Mouth every day. losartan By Mouth every day. meclizine 3 times a day. metoprolol mycophenolate mofetil (CellCept) 2 times a day. pancrelipase (Creon) By Mouth 3 times a day. pramipexole By Mouth. predniSONE By Mouth every day. simvastatin By Mouth. tacrolimus PATIENT EDUCATION INFORMATION: Instructions: Hyponatremia; Nonspecific Chest Pain, Adult Follow up: With: Address: When: DUYEN SUE [address] [place] [address] [phone] Business (1) In 3 days DIAGNOSIS: Chest pain; Hyponatremia [facility] ED Note-Physicianon 04-08-20 ED Note-Physician Basic Information Time Seen: Richard Ca DO 04/07/2023 21:20 Chief Complaint pt. presents to the ed with c/o CP midsternal that began around 5 pm while cleaning the house. pt. is alert and oriented x 4 upon arrival. Pt. complaining of SOB as well. pt. had covid last month. HX. 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 Patient states that this for started yesterday and has been on and off since that time. The discomfort is across her upper chest and does not radiate. She does have some associated shortness of breath with this. She denies any nausea or vomiting. Nothing seems to make this any better or any worse. ROS: Pertinent review of systems conducted and is negative except as noted above. Physical exam: General: nontoxic appearing and in no distress HEENT: Mucous membranes moist Neuro: awake and alert Neck: supple, trachea midline Card: Heart regular rate and rhythm no murmur Resp: Lungs clear to auscultation no wheeze or rhonchi Abd: Soft and nondistended. No tenderness to palpation with no rebound or guarding. Ext: No gross deformity or edema Physical Exam Vitals & Measurements T: 36.7 ?C(Oral) HR: 65(Peripheral) RR: 19 BP: 150/79 SpO2: 96% HT: 157.48 cm WT: 58.5 kg BMI: 23.59 Medical Decision Making MEDICAL DECISION MAKING Number and Complexity of Problems Differential Diagnosis: [] [facility] Data External documents reviewed: N/A My EKG interpretation: Noted in chart if applicable My CT interpretation: N/A My X-ray interpretation: Noted in chart if applicable My Ultrasound interpretation: N/A Decision rules/scores evaluated: Heart Score for Major Cardiac Event History: Example factors for history - pattern of chest pain, onset, duration, relation with exercise, stress or cold, localization, concominant symptoms. reaction to sublingual nitrates, [] Highly suspicious +2 [] Moderately suspicious +1 [X] Slightly suspicious 0 EKG: [] Significant ST-Depression +2 [] Non specific repolarization disturbance +1 [X] Normal 0 Age: [X] >= 65 +2 [] 45-65 + 1 [] <45 0 Risk Factors: (HLD, HTN, DM, Cigarette Smoking, Pos Family Hx, Obesity) [] >3 risk factors or hx of atheroslerotic disease + 2 [X] 1-2 risk factors + 1 [] No risk factors known 0 Troponin: [] >= 3X normal + 2 [] 1-3X normal + 1 [X] <= Normal 0 [X] 0-3 Points 0.9 - 1.7% risk of major adverse cardiac event in 6 weeks [] 4-6 Points 12-16.6% risk of major adverse cardiac event in 6 weeks [] 7-10 Points 50-65% risk of major adverse cardiac event in 6 weeks [X] 0-3 Points with 2 sets of negative cardiac markers <1% risk of major adverse cardiac event in 30 days. Discussed with: N/A Treatment and Disposition ED Course: Patient is nontoxic-appearing and in no distress. She has been having some chest discomfort so we will obtain EKG, chest x-ray, blood work including troponin. Patient was given gentle IV hydration. Blood work is significant for a mild hyponatremia. I discussed this with the patient she states that this is chronic for her and her physician follows her blood work regularly. Repeat 3-hour and 6-hour troponins were obtained and remain within normal limits. On my reexamination the patient's pain has improved and she is feeling much better. I discussed the work-up with her and at this time I feel she is stable for discharge with close follow-up to primary care physician. Discussed return precautions. Patient states understanding agreement with plan was discharged stable condition. Shared decision making: As above Code status: N/A Assessment/Plan Chest pain (R07.9: Chest pain, unspecified) Hyponatremia (E87.1: Hypo-osmolality and hyponatremia) Orders: acetaminophen, Tab, Misc, Once, Stop date 04/07/23 23:48:04 EDT, Physician Stop, 04/07/23 23:48:04 EDT acetaminophen, 975 mg = 3 tab(s), Tab, Oral, Once, Stop date 04/07/23 23:50:00 EDT, Start date 04/07/23 23:50:00 EDT Sodium Chloride 0.9% intravenous solution 500 mL, 500 mL, IV, 500 mL/hr, for 60 minute(s), Stop date 04/08/23 3:13:00 EDT, STAT, Start date 04/08/23 2:14:00 EDT, 1 hour(s), Total volume (mL): 500, 58.5 kg, 1.6, m2 Sodium Chloride 0.9% intravenous solution 500 mL, 500 mL, IV, 500 mL/hr, STAT, Start date 04/07/23 23:05:00 EDT, 1 hour(s), Total volume (mL): 500, Bolus Dose: 500 mL, 58.5 kg, 1.6, m2 Automated Diff Basic Metabolic Panel Basic Metabolic Panel CBC w/ Auto Diff ECG 12 Lead Adult ED Cardiac Monitoring eGFR eGFR Oxygen Saturation Oxygen Therapy PT & PTT Saline Lock Insert Troponin 0 Hr. Troponin 3 Hr. Troponin 6 Hr. (more content not included)... [facility] Comment on above: Result Comment: Elec tronically Signed By: Richard Ca DO\.br\Date and Time Signed: 04/08/23 04:31 EDT ED Patient Education Noteon 04-08-2023 ED Patient Education Note Nephrology Hyponatremia Hyponatremia is when the amount of salt (sodium) in a person's blood is too low. When sodium levels are low, the cells absorb extra water, which causes them to swell. The swelling happens throughout the body, but it mostly affects the brain. What are the causes? This condition may be caused by: ? Certain medical conditions, such as: ? Heart, kidney, or liver problems. ? Thyroid problems. ? Adrenal gland problems. ? Metabolic conditions, such as [place] [employer]'s disease or syndrome of inappropriate antidiuresis (SIAD). ? Excessive vomiting, diarrhea, or sweating. ? Certain medicines or illegal drugs. ? Fluids given through an IV. What increases the risk? You are more likely to develop this condition if you: ? Have certain medical conditions such as heart, kidney, or liver failure. ? Have a medical condition that causes frequent or excessive diarrhea. ? Participate in intense physical activities, such as marathon running. ? Take certain medicines that affect the sodium and fluid balance in the blood. Some of these medicine types include: ? Diuretics. ? NSAIDs, such as ibuprofen. ? Some opioid pain medicines. ? Some antidepressants. ? Some seizure prevention medicines. What are the signs or symptoms? Symptoms of this condition include: ? Headache. ? Nausea and vomiting. ? Being very tired (lethargic). ? Muscle weakness and cramping. ? Loss of appetite. ? Feeling weak or light-headed. Severe symptoms of this condition include: ? Confusion. ? Agitation. ? Having a rapid heart rate. ? Fainting. ? Seizures. ? Coma. How is this diagnosed? This condition is diagnosed based on: ? A physical exam. ? Your medical history. ? Tests, including: ? Blood tests. ? Urine tests. How is this treated? Treatment for this condition depends on the cause. Treatment may include: ? Getting fluids through an IV that is inserted into one of your veins. ? Medicines to correct the sodium imbalance. If medicines are causing the condition, the medicines will need to be adjusted. ? Limiting your water or fluid intake to get the correct sodium balance, in certain cases. ? Monitoring in the hospital to closely watch your symptoms for improvement. Follow these instructions at home: ? Take njry-eps-waycthr and prescription medicines only as told by your health care provider. Many medicines can make this condition worse. Talk with your health care provider about any medicines that you are currently taking. ? Do not drink alcohol. ? Keep all follow-up visits. This is important. Contact a health care provider if: ? You develop worsening nausea, fatigue, headache, confusion, or weakness. ? Your symptoms go away and then return. Get help right away if: ? You have a seizure. ? You faint. ? You have ongoing diarrhea or vomiting. Summary ? Hyponatremia is when the amount of salt (sodium) in your blood is too low. ? When sodium levels are low, your cells absorb extra water, which causes them to swell. ? The swelling happens throughout the body, but it mostly affects the brain. ? Treatment for this condition depends on the cause. It may include receiving IV fluids, taking or adjusting medicines, limiting fluid intake, and monitoring in the hospital. This information is not intended to replace advice given to you by your health care provider. Make sure you discuss any questions you have with your health care provider. Document Revised: 05/29/2022 Document Reviewed: 05/29/2022 Elsevier Patient Education ? 2022 [employer]. Pulmonary Medicine Nonspecific Chest Pain, Adult Chest pain is an uncomfortable, tight, or painful feeling in the chest. The pain can feel like a crushing, aching, or squeezing pressure. A person can feel a burning or tingling sensation. Chest pain can also be felt in your back, neck, jaw, shoulder, or arm. This pain can be worse when you move, sneeze, or take a deep breath. Chest pain can be caused by a condition that is life-threatening. This must be treated right away. It can also be caused by something that is not life-threatening. If you have chest pain, it can be hard to know the difference, so it is important to get help right away to make sure that you do not have a serious condition. Some life-threatening causes of chest pain include: ? Heart attack. ? A tear in the body's main blood vessel (aortic dissection). ? Inflammation around your heart (pericarditis). ? A problem in the lungs, such as a blood clot (pulmonary embolism) or a collapsed lung (pneumothorax). Some non life-threatening causes of chest pain include: ? Heartburn. ? Anxiety or stress. ? Damage to the bones, muscles, and cartilage that make up your chest wall. ? Pneumonia or bronchitis. ? Shingles infection (varicella-zoster virus). Your chest pain may come and go. It may also be constant. Your health care (more content not included)... [facility] ED Patient Summaryon 023 ED Patient Summary [place] [id number] Patient Discharge Instructions Person Information Name: SYLVIA HERRERA Age: 77 Years Arrival Date: 04/07/2023 21:18:46 Discharge Diagnosis: Chest pain; Hyponatremia Primary Care Physician: DUYEN ROGERS CNP Provider Information Primary Provider: Richard Ca DO Advanced Bi Analyst:None The exam and treatment you received in the Emergency Department were for an urgent problem and are not intended as complete care. It is important that you follow up with a doctor, nurse practitioner, or physician?s minister assistant for ongoing care. If your symptoms become worse or you do not improve as expected and you are unable to reach your usual health care provider, you should return to the Emergency Department. We are available 24 hours a day. SYLVIA HERRERA has been given the following list of patient education materials, prescriptions and follow-up instructions: Follow-up Instructions: With: Address: When: DUYEN ROGERS [address] [address] [phone] Business (1) In 3 days In the event that this physician does not participate in your insurance network, please consult with your insurance company to find a nearby participating provider. Patient Education Materials: Hyponatremia; Nonspecific Chest Pain, Adult A MESSAGE TO ALL PATIENTS REGARDING OPIOIDS PRESCRIPTION OPIOIDS: WHAT YOU NEED TO KNOW Prescription opioids can be used to help relieve wminxung-zi-ztveqa pain and are often prescribed following a surgery or injury, or for certain health conditions. These medications can be an important part of the treatment but also come with serious risks. It is important to work with your healthcare provider to make sure you are getting the safest, most effective care. WHAT ARE THE RISKS AND SIDE EFFECTS OF OPIOID USE? Prescription opioids carry serious risks of addiction and overdose, especially with prolonged use. An opioid overdose, often marked by slowed breathing, can cause sudden . The use of prescription opioids can have a number of side effects as well, even when taken as directed: ? Tolerance?meaning you might need to take more of the medication for the same pain relief ? Physical dependence?meaning you have symptoms of withdrawal when a medication is stopped ? Increased sensitivity to pain ? Constipation ? Nausea, vomiting, and dry mouth ? Sleepiness and dizziness ? Confusion ? Depression ? Low levels of testosterone that can result in lower sex drive, energy, and strength ? Itching and sweating RISKS ARE GREATER WITH: ? History of drug misuse, substance use disorder, or overdose ? Mental health conditions (such as depression or anxiety) ? Sleep apnea ? Older age (65 years and older) ? Avoid alcohol while taking prescription opioids. Also, unless specifically advised by your health care provider, medications to avoid include: ? Benzodiazepines (such as Xanax or Valium) ? Muscle relaxants (such as Soma or Flexeril) ? Hypnotics (such as Ambien or Lunesta) ? Other prescription opioids KNOW YOUR OPTIONS Talk to your health care provider about ways to manage your pain that don?t involve prescription opioids. Some of these options may actually work better and have fewer risks and side effects. Options may include: ? Pain relievers such as acetaminophen, ibuprofen, and naproxen ? Some medication that are also used for depression or seizures ? Physical therapy and exercise ? Cognitive behavioral therapy, a psychological, goal-directed approach, in which patients learn how to modify physical, behavioral, and emotional triggers of pain and stress. IF YOU ARE PRESCRIBED OPIOIDS FOR PAIN: ? Never take opioids in greater amounts or more often than prescribed. ? Follow up with your primary health care provider. o Work together to create a plan on how to manage your pain. o Talk about ways to help manage your pain that don?t involve prescription opioids. o Talk about any and all concerns and side effects. ? Help prevent misuse and abuse o Never sell or share prescription opioids. o Never use another person?s prescription opioids. ? Store prescription opioids in a secure place and out of reach of others (this may include visitors, children, friends, and family). ? Safely dispose of unused prescription opioids: Find your community drug take-back program or your pharmacy mail-back program, or flush them down the toilet, following guidance from the Food and Drug Administration (www.fda.gov/Drugs/Re sourcesForYou). ? Visit www.cdc.gov/drugoverd ose to learn about the risks of opioids abuse and overdose. ? If you believe you may be struggling with addiction, tell your health caretaker grounds and ask for guidance or call SAMHSA?S National Helpline at 5-871-257-TVAG. v Source: [place] Departmen (more content not included)... [facility] EMS Documentationon 04-08-20 EMS Documentation Please click on link to see report [id number] CiX5+prnDQolQUJDcGRmI RVpJeK3GZx4RXMru9HdTU l8WVraJBS3NnXvBHhzAJQ b TBK3OLUmZHvzJn5WRUG4Y aL3Cz1ZsF0hXHSbepEjET CQW97yCMtiZxT5Ox3FDUF 4XEr7Wj9+ICAg ICAgICAgICAgICAgICAgI CAgICAgICAgICAgICAgIC AgICAgICAgICAgICAgICA gICAgICAgICAg ICAgICAgICAgICAgICAgI XGfJVTBLcTkUM4hsn3HOY u5dfGpDEq2TSL8BBjpLCR wMDAwMDMyIDAw WOHoAD7RZkShWCHiVCF2H HrtLIOyVIIndt6PJOXvMK SpXXA9CWNoAYLkXPOoCEm wMDAwMDAxODM3 OPEdXKXnVY9WYxVhVOLrQ CJ7GnxaSGQdDCYjtw1KRW AwMDAwMjIyOCAwMDAwMCB uDQowMDAwMDAy LiczBIUsUNIgSF4ATbKzU DAwMDIzNTYgMDAwMDAgbg 5BZJPpFQFsRjM8XlRaIAW wMCBuDQowMDAw CMXxOPWgYLFyQOTbVD8FK iMxYJLnASY8YGovDRZpWF Ydzn5TSJIqMIJvNnt7CMX wMDAwMCBuDQow TBBaJEUiOhD3ZSLlXFRgI A3EYpEsXHVeWKD2QPYtNE CaTENnfp6XKMXlDVEwMGV 5NSAwMDAwMCBu TDmyBAJjWBT5RnSlUXXpF AGtCD6SQoCtYVSrDRO5Me xnVTSmKMJrev0THJDfKUD zUZx7DVZgMEKm URXxLTfpBJKcXXE8ApY7F HVwQCJwAC8TNsVvNGTqDJ G6BoyoJDEgCEFgjd7EEYW wMDAwNTgwNSAw YVXlEBYuMBviDUSjWMZ5K WR1CXAxECLoLI9SUwAxKV KpRNK2DbuuWPVoUXWjys0 KMDAwMDAwNjc1 MyAwMDAwMCBuDQowMDAwM NX2HLZ7CFQrFYXaDB6DCz AwMDAwMDczOTYgMDAwMDA hbh7TBVSfXDDr OTkyMiAwMDAwMCBuDQowM RNgRZM5WUP7AUEaKIEwTR 6SSnSeHRsmCGIXNyg0Ur6 JRCBbPENEMUFD U1GdEMXYYvhXUHO7LYV8D Sz6CGAgGRqcHkS8Rqh5Ur IXDHU8Onh4KPlMDUZ4CPc 7PREQL9A7OXaO NTZDRTA+ETxiOLVebfN7Z kW2PzrzRv4wuFQ6PAGzGh dpV2p2MJGpMjrxA401twE lIChXZUpYRnhO YkPqQyJ4fBCDXFIIP8Q7T 47rJ29oHB7UUHczR2u4Gb fPNOT8JKdQzExAIrAlE22 kTLrhPKSbE3Ez NblzgXoeASC9Y7CbgVO4F 4qvz73wPAPFNAjAq7ntIR T1K97FLfzNYhjCccINP2f 5oBQSuSM8Ycuu F9cvVgEhJSPCMRBgJfKdE vrAJ2EMZ9dZBk4uTz3+IC AgICAgICAgICAgICAgICA gICAgICAgICAg ICAgICAgICAgICAgICAgI CAgICAgICAgICAgICAgIC AgICAgICAgICAgICAgICA gICAgICAgICAg ICAgICAgICAgICAgICAgI CAgICAgICAgICAgICAgIC AgICAgICAgICAgICAgICA gICAgICAgICAg ICAgICAgICAgICAgICAgI CAgICAgICAgICAgICAgIC AgICAgICAgICAgICAgICA gICAgICAgICAg ICAgICAgICAgICAgICAgI CAgICAgICAgICAgICAgIC AgICAgICAgICAgICAgICA gICAgICAgICAg ICAgICAgICAgICAgICAgI CAgICAgICAgICAgICAgIC AgICAgICAgICAgICAgICA gICAgICAgICAg ICAgICAgICAgICAgICAgI CAgICAgICAgICAgICAgIC AgICAgICAgICAgICAgICA gICAgICAgICAg ICAgICAgICAgICAgICAgI CAgICAgICAgICAgICAgIC AgICAgICAgICAgICAgICA gICAgICAgICAg QBZWVgM7ZDT8bSQuEl9AR L3MFYGYN8LWZa8DWYRsNW 5hcr7YDUlHS48dlGViXCC eBAGaAJZTYj9I dEDiWCG2nF9bIPx4CESpJ zsbJmi1DK2BK378tUygrj DjAIPkPBVMBs1UAJbgOJ9 nBVGcWOLnRj3b ZQovUGFnZXMgMiAwIFIKL 9N5vGZoI8GcmNNka2sUEz 8QKlGbXO9zhr7MLKx1WQN af2RhGTm7QKjt QfzjoBEfZM4EtVV2IZWlS 19xWKzjEFDkZ2IbPJAyCI haGyO6Acj+Lz3Hm4HmSZO aWIn3lTRqLAFz YGDLYFBgYLjCAyLhQAEKU zxfMqK9ItFbXKTp0GLrGV Az25JERrEhXqQzKAteVvG ivWYE1MrcPbFI ZSqu9KqJCxXOGxRLfgJ9A WqcLAAWQdyJIDs4ItIzMx rG1HlDorWo2X1CMHFQRjy AKlSqIMR5nbWb xR0WXZ5el2LcLBnVZtttP REtRhbALef2Xv0Vm920MH 50cyBbMjQgMCBSXQovTWV bkXFZr5idQvXv HRG3ATApOdkgVEofDZMaH Y77QBZuYMZOQb1DGOEktD AhKVCiAYvDT9mUTmtsY8X uUPeAT9csXzS8 IDggMCBSCj4+Cj4+Ci9Ue PSfKS4ZDZgrKl5+DQplbm SbIsgXDf8BTXRqFF8upa0 WIWwNP5MUf6ex SaVgZKL3LFZrEuxtLLudG chdkEOkHS2UkAF6IASrC3 8tPQawUQYsR7XdDLp3Gh3 SZXNvdXJjZXMg NCfQA5wOKilsY5LnDAsXD 0lcZcO3ZIT1FHRhKgz+Pg o+XhmtG0IeyVkiGNGkZp4 ybQovVHlwZSAv SF2kbgAqwCi+Xe7Us0RqP RPbTZy8sRWB6GYa5OAbWR HtYPV4HXWoagSMKCub5Yu XyOPlMtCztDAz X0myOKZt31aXWFRsRdyKw 9qpDtJd4JxBAL+BV1XMbh HmNwKswf0AMTwqusZjbQG ySH4KYzFnVD7k mz1FAKl2THNpx0IgXDt6V UkvZm5nD81zdp0ovAsgK4 EgMQo+Xi1GFW0jc9YeJCj YZxDpRQNxg7Kn XVu4JEslNv6kT54xog8zw XyrW9HcVHlbACAzTHnwCQ ogMAovTFcgMQovTUwgNAo jG9VcfCS7ELxf U3LtOEa+Fh4JPK0xo8DmY GmVRkTcUUKti0JwZZt9AX loWp1iJ56mxc1vyDvlB9X hIJ5wDqSnTkqu TEMgMAovTEogMAovTFcgM EnbYWdxYZsxA7NonDA6OO myE7SvRS3mYkOaUne+Pg0 VHP5nm0JxJXvQ MpAzZYZdt9RiAOd0VLmdE e9tY98zft2liNshR0PjVS 4wODIzNQo+Uo5XHD1tv0M qDQoNCjEzIDAg q8JoLEv7KQjmPh6zW18oe c3beXelA6ZqQA8lQLQ0MG ovTEMgMAovTEogMAovTFc gMQovTUwgNAov T7BrlAV8JKrlX2YuWW3vI TA5OAo+Gm7DUK1at7WyQS zHWeU3JYBjm7WlCLj9JLt mHQZ9cin6JMtv Wze3XYArETToPF25SEHvW Rj6Ph9GS1XgqXMafb1XcN UeNLISO3UvJQTcuxynKMz MQ7ZwaZ8bN4Wh C3NoJ1DwgihlNRUERsmnO 54fjhPmTWaqMRP2GQZaBI P5ZP8GV4Q8pPUxKYZrpXG 8XJn3pkYvCWfg HdGdH7Lze77dPOlPT8DfS ZvqQdr6JzNiCea6BgSeXg j8W36VW9UwJAesFob9KpC yOpn9FdNfJxj8 X39TE0UygQLjrcIzKYSvF AzuAkJvG4Lii68PsVAxRI DVG87bUDj+IryqR9lnIFj cZ2Q7oBNrBfr+ JfdtJWkdBNYpCOK4xACfm go+Qt5EQY4cg9MkSKwZOw J2BEXjb9FqUMh8TXnhJVK 0pte9TSshFyd9 BLAsZILoNS17FIIdRGd4L i1UN3QxcXJcwk1PyJDyLX IEA3RsOQBayqarLTmFS4O nhM0kE3KaL0No D9UzllbpMRGQRjkqW23xk yRzGQu1WZA5JvX1PXO3Yf 77Sj5OZ8T6jYMgAKFzuSH 7HGo2kkZzRAvo TcFnZ6Fcd14aNWvZF6Twr S0aznXtFA97MYubFJ8jOW azUPlkUAUjKg5EdoIvMJR gWzAgMSAwIDFd Vp2AsL4sbGemesP9dZWzJ rrbIsJsX5Khv18oUFc4CB rvMeTgFfYdRAD7MXIhDZE 1OMIsUPV9YByn DdHhUvUeAMQ9ALTrIKQ7D MGfAIF6VUqpES3xLMirIS jlEWYgFn7QbD7kpKtwhfH 5cGUgMgovTiAx Cj4+Uaa4Wa6QKBRrBF25F ziaBZ92CjdtHR66FizcCl 3EFRShVI41OkVtIF16QoL zEE80AqLcVe2F l77bkI7wCwVcTB5QT2R9w uU4jX9kUFnsILNqNs1MRT PNBl5oLp1+Rq9CkVDvjD4 nVHlwZSAyCj4+ Sp2EyXLkWX2SGGN4KYZnD j4+RSzaksZdKugRKg6PJZ FaLGMsMqkNEph7Qt9JCYI nRi9kdPWgYAcB HI5TG6SeO81xLUzDK6Tms 8UlgmBwwjDKd640kqSgQU qoSMZVCMtzDF3dm8Qhegg eR0umKA49fVB8 RHiWK8E2DkS9fJFuD3D9x AZqXj3Zc1ZieXXbHWNpST ngCOPVKn0ZtBLgTP7Lv01 0Cj4+DQplbmRv SvfWHx4ZZOnpXQAoSldOP vi3Fq4THFLtFa5qjVTdCQ sEYF7BS2FcV88fKJuXP6Q BAWT8v2CuzKnb Ly6yNWmOL90rHDLqjK1zI ElAKDPmpCr3sKvQO4EmG7 kzgSY5DIsSPT4b (more content not included)... Normal [facility] EMS Documentation Please click on link to see report Normal [facility] Comment on above: Result Comment: Miss ing Attachment - attachment exceeds size limitation [id number] Can be viewed in source system EMS Documentation [id number] 1.00CD:127 Normal [facility] Monitor Recordon 04-08-2023 Monitor Record [id number]# 1.00CD:127 Normal [facility] Progress Note-Nurseon 2022 Progress Note-Nurse Pt. requesting food, Dr. Ca aware. Pt. given food per verbal order from Dr. Ca. Normal [facility] Troponin 0 Hr.on 04-08-2023 Troponin I.cardiac [Mass/Vol] 9.20 pg/mL Low 10.10-27.10 [facility] Comment on above: Result Comment: The 95% CI (Confidence Interval) PPV (Positive Predictive Value) for myocardial infarction in females is 38 pg/mL, in males 51 pg/mL. The results should be used in conjunction with clinical conditions of myocardial infarction. (Access High Sensitivity Troponin I Instructions For Use, [employer] July 2018) Performed By: #### 2 274072, 25453921, 5903240, 6982721, 71959800, 14514749 ####[facility] [address] [place] [address] Troponin 3 Hr.on 04-08-2023 Troponin I.cardiac [Mass/Vol] 9.70 pg/mL Low 10.10-27.10 [facility] Comment on above: Result Comment: The 95% CI (Confidence Interval) PPV (Positive Predictive Value) for myocardial infarction in females is 38 pg/mL, in males 51 pg/mL. The results should be used in conjunction with clinical conditions of myocardial infarction. (Access High Sensitivity Troponin I Instructions For Use, [employer] July 2018) Performed By: #### 1 [id number] ####[facility] [address] [place] [address] Troponin 6 Hr.on 04-08-2023 Troponin I.cardiac [Mass/Vol] 11.10 pg/mL Normal 10.10-27.10 [facility] Comment on above: Result Comment: The 95% CI (Confidence Interval) PPV (Positive Predictive Value) for myocardial infarction in females is 38 pg/mL, in males 51 pg/mL. The results should be used in conjunction with clinical conditions of myocardial infarction. (Access High Sensitivity Troponin I Instructions For Use, [employer] July 2018) Performed By: #### 1 [id number], 4439235, [id number] ####[facility] [address] [place] [address] XR Chest Single Viewon 04-08 XR Chest Single View Exam Date/Time: 04/07/2023 22:14 EDT Reason for Exam: Chest pain Report IMPRESSION: There are no acute infiltrates or effusions. CLINICAL HISTORY: Chest pain EXAMINATION: XR Chest Single View COMPARISON: There are no recent relevant prior studies for comparison FINDINGS: Status post median sternotomy. The cardiac silhouette is enlarged. The lungs are free of infiltrates effusions or consolidations. There are no acute osseous changes. Ordering Provider: Richard Ca FINAL REPORT Dictated: 04/08/2023 7:58 am Joel Shields MD, V. Signed (Electronic Signature): 04/08/2023 7:58 am Signed by: Joel Shields MD, V. Transcribed by: HERMELINDA Technologist: REILLY Technical Comments Radiation Dose: Ka,r in mGy = na DAP = na Normal [facility] eGFRon 04-08-2023 GFR/1.73 sq M.predicted among non-blacks MDRD (S/P/Bld) [Vol rate/Area] 42 mL/min/1.73 m2 Low >=59 [facility] Comment on above: Order Comment: Order added by Discern Expert. Result Comment: Commercial Sales Consultant brennan kidney disease could be indicated at eGFR's of less than 60 mL/min/1.73m2. Kidney failure is indicated at less than 15 mL/min/1.73m2. Performed By: #### 1 [id number], 8286134, [id number] ####[facility] [address] [place] [address] Auto Diffon 04-07-2023 Basophils/100 WBC (Bld) 0.4 % Normal 0.0-2.0 [facility] Comment on above: Order Comment: Order Added by Discern Expert. Performed By: #### 2 782950, 18873208, 4509762, 8272876, 29042220, 57302213 ####[facility] [address] [place] [address] Basophils/Leukocytes Auto (Bld) [Pure # fraction] 0.0 E9/L Normal 0.0-0.2 [facility] Comment on above: Order Comment: Order Added by Discern Expert. Performed By: #### 2 035550, 58831670, 4805041, 2462397, 55920557, 80050855 ####[facility] [address] [place] [address] Eosinophils/100 WBC (Bld) 3.0 % Normal 0.0-8.0 [facility] Comment on above: Order Comment: Order Added by Discern Expert. Performed By: #### 2 060332, 24256899, 7957873, 4607964, 24016558, 61272563 ####[address] [address] Eosinophils/Leukocytes Auto (Bld) [Pure # fraction] 0.2 E9/L Normal 0.0-0.5 [facility] Comment on above: Order Comment: Order Added by Discern Expert. Performed By: #### 2 396302, 28616077, 7799368, 3342135, 96085980, 06367378 ####[address] [address] Lymphocytes/100 WBC (Bld) 15.4 % Normal 14.0-50.0 [facility] Comment on above: Order Comment: Order Added by Discern Expert. Performed By: #### 2 311218, 12779931, 6115507, 4503010, 70489188, 62528715 ####[address] [address] Lymphocytes/Leukocytes Auto (Bld) [Pure # fraction] 1.1 E9/L Normal 1.0-4.0 [facility] Comment on above: Order Comment: Order Added by Discern Expert. Performed By: #### 2 934809, 83909249, 4554488, 7034434, 46604161, 01949920 ####[address] [address] Monocytes/100 WBC (Bld) 12.8 % Normal 4.0-14.0 [facility] Comment on above: Order Comment: Order Added by Discern Expert. Performed By: #### 2 169062, 77404535, 5850319, 7717185, 68550177, 69507311 ####[address] [address] Monocytes/Leukocytes Auto (Bld) [Pure # fraction] 0.9 E9/L Normal 0.2-1.0 [facility] Comment on above: Order Comment: Order Added by Discern Expert. Performed By: #### 2 484508, 83328715, 9757304, 2560596, 78471631, 02881809 ####[facility] [address] [place] [address] Neutrophils/100 WBC (Bld) 68.4 % Normal 36.0-75.0 [facility] Comment on above: Order Comment: Order Added by Discern Expert. Performed By: #### 2 611168, 46026440, 5878936, 7401841, 84780000, 72545048 ####[facility] [address] [place] [address] Neutrophils/Leukocytes Auto (Bld) [Pure # fraction] 5.0 E9/L Normal 2.0-7.5 [facility] Comment on above: Order Comment: Order Added by Discern Expert. Performed By: #### 2 623645, 71803583, 8957413, 5293419, 46912251, 63498370 ####[address] [place] [address] BMP 04-07-2023 Creatinine [Mass/Vol] 1.5 mg/dL High 0.5-1.3 [facility] Comment on above: Performed By: #### 2 124570, 43419012, 3355831, 6489457, 45803973, 99262502 ####[facility] [address] [place] [address] Urea nitrogen [Mass/Vol] 40 mg/dL High 5-21 [facility] Comment on above: Performed By: #### 2 209749, 90880499, 8143854, 7407263, 88016016, 75580265 ####[facility] [address] [place] [address] Urea nitrogen/Creatinine [Mass ratio] 27 No Units High 10-20 [facility] Comment on above: Performed By: #### 2 036553, 97249823, 1214324, 0413308, 23251823, 51078131 ####[facility] [address] [place] [address] Anion gap [Moles/Vol] 11 mmol/L Normal 6-[address] [facility] Comment on above: Performed By: #### 2 020074, 44668630, 0243716, 1968247, 66125183, 91566898 ####[facility] [address] [place] [address] Calcium [Mass/Vol] 8.6 mg/dL Low 8.9-11.1 [facility] Comment on above: Performed By: #### 2 163357, 64096600, 1212805, 7369396, 67405306, 25281318 ####[facility] [address] [place] [address] Chloride [Moles/Vol] 96 mmol/L Low 101-111 [facility] Comment on above: Performed By: #### 2 961532, 25863183, 3922469, 7445364, 60737898, 56067256 ####[facility] [address] [place] [address] CO2 [Moles/Vol] 24 mmol/L Normal 21-31 [facility] Comment on above: Performed By: #### 2 994116, 05282624, 5009646, 4483897, 38461465, 27064394 ####[facility] [address] [place] [address] Glucose [Mass/Vol] 139 mg/dL Normal 55-199 [facility] Comment on above: Result Comment: If t his glucose result represents a fasting glucose, interpretation should refer to the following reference range: 55-99 mg/dL Performed By: #### 2 541633, 09913433, 7278858, 0121494, 59304635, 24915383 ####[facility] [address] [place] [address] Potassium [Moles/Vol] 4.4 mmol/L Normal 3.5-5.3 [facility] Comment on above: Performed By: #### 2 068793, 67355873, 9354621, 9109907, 42638513, 50946938 ####[facility] [address] [place] [address] Sodium [Moles/Vol] 127 mmol/L Low 135-145 [facility] Comment on above: Performed By: #### 2 791537, 17130728, 2811462, 4951985, 14621475, 22545653 ####[facility] [address] [place] [address] CBC w/ Auto Diffon 3 Erythrocyte distribution width (RBC) [Ratio] 13.0 % Normal 10.9-14.2 [facility] Comment on above: Performed By: #### 2 339359, 39693273, 7169633, 3639561, 91116424, 21526811 ####[facility] [address] [place] [address] Hematocrit (Bld) [Volume fraction] 38.4 % Normal 34.0-46.0 [facility] Comment on above: Performed By: #### 2 233620, 15445187, 1688828, 3849884, 81231664, 75404558 ####[facility] [address] [place] [address] Hemoglobin (Bld) [Mass/Vol] 12.6 g/dL Normal 12.0-16.0 [facility] Comment on above: Performed By: #### 2 013521, 37629648, 6419624, 7794056, 84937498, 11176596 ####[facility] [address] [place] [address] MCH (RBC) [Entitic mass] 27.9 pg Normal 27.0-34.0 [facility] Comment on above: Performed By: #### 2 088258, 21388193, 8331386, 4760623, 35205119, 22012417 ####[facility] [address] [place] [address] MCHC (RBC) [Mass/Vol] 32.7 g/dL Normal 31.4-36.0 [facility] Comment on above: Performed By: #### 2 620541, 97498898, 8010953, 8800107, 61615014, 94127417 ####[address] [address] MCV (RBC) [Entitic vol] 85.3 fL Normal 80.0-100.0 [facility] Comment on above: Performed By: #### 2 887884, 53478854, 6639531, 4661563, 71343162, 25686519 ####[address] [address] Platelet mean volume (Bld) [Entitic vol] 7.3 fL Normal 6.4-10.8 [facility] Comment on above: Performed By: #### 2 867861, 00729483, 9232761, 2429658, 23324022, 19914973 ####[address] [address] Platelets (Bld) [#/Vol] 167.0 E9/L Normal 150.0-500.0 [facility] Comment on above: Performed By: #### 2 029332, 93891256, 0046342, 4142877, 63707550, 34025040 ####[address] [address] RBC (Bld) [#/Vol] 4.5 E12/L Normal 4.3-5.9 [facility] Comment on above: Performed By: #### 2 917845, 74550662, 2463978, 6049612, 42459580, 34536224 ####[address] [address] WBC corrected for nucl RBC Auto (Bld) [#/Vol] 7.3 E9/L Normal 4.0-11.0 [facility] Comment on above: Performed By: #### 2 246720, 13196606, 9771875, 2572777, 71074529, 94133197 ####[facility] [address] [place] [address] CHEMISTRYOrdered By: SYSTEM SYSTEM on 04-07-2023 Anion gap [Moles/Vol] 11 mmol/L Normal 6 - 16 mEq/L [facility] Calcium [Mass/Vol] 8.6 mg/dL Low 8.9 - 11. 1 mg/dL [facility] Chloride [Moles/Vol] 96 mmol/L Low 101 - 1 11 mmol/L [facility] CO2 [Moles/Vol] 24 mmol/L Normal 21 - 31 mmol/L [facility] Creatinine [Mass/Vol] 1.5 mg/dL High 0.5 - 1.3 mg/dL [facility] GFR/1.73 sq M.predicted among non-blacks MDRD (S/P/Bld) [Vol rate/Area] 35 mL/min/1.73 m2 Low >=59mL/min/1 .73 m2 [facility] Chem S Glucose [Mass/Vol] 139 mg/dL Normal 55 - 199 mg/dL [facility] Potassium [Moles/Vol] 4.4 mmol/L Normal 3.5 - 5.3 mmol/L [facility] Sodium [Moles/Vol] 127 mmol/L Low 135 - 145 mmol/L [facility] Troponin I.cardiac [Mass/Vol] 9.20 pg/mL Low 10.10 - 27.10 pg/mL [facility] Urea nitrogen [Mass/Vol] 40 mg/dL High 5 - 21 mg/dL [facility] Urea nitrogen/Creatinine [Mass ratio] 27 mg/mg High 10 - 20 [facility] COAGULATIONOrdered By: Florence Mancilla on 04-07-2023 aPTT Coag (PPP) [Time] 27.1 s Normal 25.1 - 36.5 second(s) [facility] Auto Coag INR Coag (PPP) [Relative time] 1.2 {INR} Invalid Interpretation Code [facility] Auto Coag PT Coag (PPP) [Time] 12.9 s High 9.4 - 1 2.5 second(s) [facility] Auto Coag HEMATOLOGYOrdered By: SYSTEM SYSTEM on 04-07-2023 Basophils/100 WBC (Bld) 0.4 % Normal 0.0 - 2.0 % [facility] HemeAutoSS Basophils/Leukocytes Auto (Bld) [Pure # fraction] 0.0 E9/L Normal 0.0 - 0.2 E9/L [facility] HemeAutoSS Eosinophils/100 WBC (Bld) 3.0 % Normal 0.0 - 8.0 % [facility] HemeAutoSS Eosinophils/Leukocytes Auto (Bld) [Pure # fraction] 0.2 E9/L Normal 0.0 - 0.5 E9/L [facility] HemeAutoSS Lymphocytes/100 WBC (Bld) 15.4 % Normal 14.0 - 50.0 % [facility] HemeAutoSS Lymphocytes/Leukocytes Auto (Bld) [Pure # fraction] 1.1 E9/L Normal 1.0 - 4.0 E9/L [facility] HemeAutoSS Monocytes/100 WBC (Bld) 12.8 % Normal 4.0 - 14.0 % [facility] HemeAutoSS Monocytes/Leukocytes Auto (Bld) [Pure # fraction] 0.9 E9/L Normal 0.2 - 1.0 E9/L [facility] HemeAutoSS Neutrophils/100 WBC (Bld) 68.4 % Normal 36.0 - 75.0 % [facility] HemeAutoSS Neutrophils/Leukocytes Auto (Bld) [Pure # fraction] 5.0 E9/L Normal 2.0 - 7.5 E9/L [facility] HemeAutoSS HEMATOLOGYOrdered By: Raymond Strauss on 04-07-2023 Erythrocyte distribution width (RBC) [Ratio] 13.0 % Normal 10.9 - 14.2 % [facility] HemeAutoSS Hematocrit (Bld) [Volume fraction] 38.4 % Normal 34.0 - 46.0 % [facility] HemeAutoSS Hemoglobin (Bld) [Mass/Vol] 12.6 g/dL Normal 12.0 - 16.0 gm/dL [facility] HemeAutoSS MCH (RBC) [Entitic mass] 27.9 pg Normal 27.0 - 34.0 pg [facility] HemeAutoSS MCHC (RBC) [Mass/Vol] 32.7 g/dL Normal 31.4 - 36.0 gm/dL [facility] HemeAutoSS MCV (RBC) [Entitic vol] 85.3 fL Normal 80.0 - 100.0 fL [facility] HemeAutoSS Platelet mean volume (Bld) [Entitic vol] 7.3 fL Normal 6.4 - 10.8 fL [facility] HemeAutoSS Platelets (Bld) [#/Vol] 167.0 E9/L Normal 150.0 - 500.0 E9/L [facility] HemeAutoSS RBC (Bld) [#/Vol] 4.5 E12/L Normal 4.3 - 5.9 E12/L [facility] HemeAutoSS WBC corrected for nucl RBC Auto (Bld) [#/Vol] 7.3 E9/L Normal 4.0 - 11.0 E9/L [facility] HemeAutoSS PT & PTTon 04-07-2023 aPTT Coag (PPP) [Time] 27.1 second(s) Normal 25.1-36.5 [facility] Comment on above: Result Comment: Para meter 15 days - 4 weeks 1 - 5 months 6 - 11 months 1 - 5 years 6 - 10 years 11 - 17 years PTT Mean: 35.4 (27.6-45.6) Mean: 33.5 (24.8-40.7) Mean: 32.4 (25.1-40.7) Mean: 31.6 (24.0-39.2) Mean: 31.6 (26.9-38.7) Mean: 31.0 (24.6-38.4) Pediatric Reference ranges were obtained from a study by Jose Ramon Sneed et al. prepared from 1437 samples obtained at 7 different centers using the same coagulation reagent and instrumentation as [facility]. Currently there are no coagulation studies available worldwide for children to 14 days, and no normal ranges. Heparin therapeutic range (represented by Anti-Factor Xa activity of 0.2 - 0.4 U/mL) corresponds to PTT of 56.6 - 109.0 sec. Performed By: #### 2 825710, 03399216, 1756581, 5455673, 38273438, 19224588 ####[facility] [address] [place] [address] INR Coag (PPP) [Relative time] 1.2 {INR} Invalid Interpretation Code [facility] Comment on above: Result Comment: INR results are specifically intended to assess patients stabilized on long-term Anticoagulation therapy suggested INR?s ?Less Intensive Anticoagulation? 2.0 ? 3.0 Conventional Range 3.0 ? 4.5 Performed By: #### 2 639566, 37000382, 0714339, 1036596, 53512199, 97433839 ####[facility] [address] [place] [address] PT Coag (PPP) [Time] 12.9 second(s) High 9.4-12.5 [facility] Comment on above: Result Comment: 15 d ays - 4 weeks 1 - 5 months 6 -11 months 1 ? 5 years 6 ? 10 years 11 -17 years Mean: 11.2 (9.5 ? 12.6) Mean: 11.0 (9.7 ? 12.8) Mean: 11.0 (9.8 ? 13.0) Mean: 11.3 (9.9 ? 13.4) Mean: 11.7 (10.0 ? 14.6) Mean: 11.8 (10.0 - 14.1) Pediatric Reference ranges were obtained from a study by Jose Ramon Sneed et al. prepared from 1437 samples obtained at 7 different centers using the same coagulation reagent and instrumentation as [facility]. Currently there are no coagulation studies available worldwide for children to 14 days, and no normal ranges. Performed By: #### 2 198652, 86559294, 8122151, 1836538, 97632345, 67583853 ####[facility] [address] [place] [address] Pre-Arrival Noteon 3 Pre-Arrival Note Pre-Arrival Summary Name: , [facility] Current Date: 04/07/2023 21:19:11 EDT Gender: Female Date of : Age: 77 Pre-Arrival Type: EMS ETA: 04/07/2023 21:15:00 EDT Primary Care Physician: Presenting Problem: chest pain Pre-Arrival User: Natalia Fischer RN Referring Source: Location: Completion Date/Time: 04/07/2023 21:06:00 [facility] Emergency Department Pre-Hospital Report Form Vital Signs: Pre-Hospital Report: Treatment in Route: Response to Treatment: Misc. Issues: Normal [facility] eGFRon 04-07-2023 GFR/1.73 sq M.predicted among non-blacks MDRD (S/P/Bld) [Vol rate/Area] 35 mL/min/1.73 m2 Low >=59 [facility] Comment on above: Order Comment: Order added by Discern Expert. Result Comment: Commercial Sales Consultant brennan kidney disease could be indicated at eGFR's of less than 60 mL/min/1.73m2. Kidney failure is indicated at less than 15 mL/min/1.73m2. Performed By: #### 2 837366, 94016700, 8138854, 9534182, 58991930, 26240563 ####[facility] [address] [place] [address] Orders Onlyon 03-08-2023 Orders Only [id number] Sylvia Herrera 1945 F Date Provider Department Center 03/08/2023 ANISHA JACOBS [facility] C[facility] [place] Family History Family history unknown: Yes Normal [facility] INFLUENZA A AND B AGon 03-05 INFLUANEGH SEE BELOW Normal [facility] Comment on above: Result Comment: Nega tive for Flu A protein angiten. Infection due to Flu A cannot be ruled out. Flu A angiten in the sample may be below the detection limit of the test. Performed By: #### E RUR #### [facility] [address] [place] [address] Dr. Hardeep Rivera INFLUBNEGH SEE BELOW Normal [facility] Comment on above: Result Comment: Nega tive for Flu B protein antigen. Infection due to Flu B cannot be ruled out. Flu B antigen in the sample may be below the detection limit of the test. Performed By: #### E RUR #### [facility] [address] [place] [address] Dr. Hardeep Rivera INFLUENZA A AG Negative Normal NEGATIVE SEE COMMENT [facility] Comment on above: Performed By: #### E RUR #### [facility] [address] [place] [address] Dr. Hardeep Rivera INFLUENZA B AG Negative Normal NEGATIVE SEE COMMENT [facility] Comment on above: Performed By: #### E RUR #### [facility] [address] [place] [address] Dr. Hardeep Rivera SYMPTOMATIC COVID-19 ANTIGEN on 03-05-2023 EUA Statement SEE BELOW Normal [facility] Comment on above: Result Comment: This test has not been FDA cleared or approved, but has been authorized by the FDA under an Emergency Use Authorization (EUA) for use by authorized laboratories certified under CLIA that meet the requirements to perform moderate or high complexity testing. This test has been authorized only for the detection of proteins from SARS-CoV-2, not for any other viruses or pathogens. The emergency use of this test is authorized for the duration of the declaration that circumstances exist justifying the authorization of emergency use of in vitro diagnostic tests for detection and/or diagnosis of Covid-19 under section 564(b)(1) of the Act, 21 U.S.C. 360bbb-3(b)(1), unless the declaration is terminated or authorization is revoked sooner. Performed By: #### C VDAGS ####[facility] [address] [place], [place] [address]Dr. Hardeep Rivera SARS-CoV-2 (COVID-19) RNA ULICES+probe Ql (Unsp spec) Positive Abnormal NEGATIVE [facility] Comment on above: Performed By: #### C VDAGS ####[facility] [address] [place], [place] [address]Dr. Hardeep Rivera FK506 (TACROLIMUS) WHOLE BLO ODon 02-28-2023 Tacrolimus (FK506), Blood 5.8 ng/mL Normal 2.0-20.0 [facility] Comment on above: Result Comment: Trou gh (immediately following transplant) 15.0 . Trough (steady state, 2 weeks or more after transplant): 3.0 - 8.0 . Performed by LC-MS/MS technology. Performed By: #### F K506T ####[facility] [address] [place], [place] [address]Dr. Hardeep Rivera CBC AUTO DIFFon 02-14-2023 BASO # 0.0 103/ul Normal 0.0-0.1 [facility] Comment on above: Performed By: #### AKSHAT OLSONICRO #### [facility] [address] [place] [address] Dr. Hardeep Rivera Basophils/100 WBC (Bld) 0.5 % Normal 0.2-2.0 [facility] Comment on above: Performed By: #### Deedee PINON UMICRO #### [facility] [address] [place] [address] Dr. Hardeep Rivera EO # 0.2 103/ul Normal 0.0-0.7 [facility] Comment on above: Performed By: #### Deedee PINON UMICRO #### [facility] [address] [place] [address] Dr. Hardeep Rivera Eosinophils/100 WBC (Bld) 3.5 % Normal 0.9-7.0 [facility] Comment on above: Performed By: #### Deedee PINON UMICRO #### [facility] [address] [place] [address] Dr. Hardeep Rivera Erythrocyte distribution width (RBC) [Ratio] 12.3 % Normal 11.0-15.0 [facility] Comment on above: Performed By: #### Deedee PINON UMICRO #### [facility] [address] [place] [address] Dr. Hardeep Rivera Hematocrit (Bld) [Volume fraction] 38.7 % Normal 36.0-48.0 [facility] Comment on above: Performed By: #### Deedee PINON UMICRO #### [facility] [address] [place] [address] Dr. Hardeep Rivera Hemoglobin (Bld) [Mass/Vol] 12.6 g/dL Normal 12.0-16.0 [facility] Comment on above: Performed By: #### Deedee PINON UMICRO #### [facility] [address] [place] [address] Dr. Hardeep Rivera IG # 0.03 10e3/ul Normal 0.00-0.03 [facility] Comment on above: Performed By: #### AKSHAT OLSONICRO #### [facility] [address] [place] [address] Dr. Hardeep Rivera IG % 0.5 % Normal 0.0-0.5 [facility] Comment on above: Performed By: #### HARI OLSONRO #### [facility] [address] [place] [address] Dr. Hardeep Rivera LYMPH # 0.8 103/ul Critically low 1.2-3.8 [facility] Comment on above: Performed By: #### HARI OLSONRO #### [facility] [address] [place] [address] Dr. Hardeep Rivera Lymphocytes/100 WBC (Bld) 13.2 % Critically low 20.5-60.0 [facility] Comment on above: Performed By: #### HARI OLSONRO #### [facility] [address] [place] [address] Dr. Hardeep Rivera MANUAL DIFF REQ NO Normal [facility] Comment on above: Performed By: #### HARI OLSONRO #### [facility] [address] [place] [address] Dr. Hardeep Rivera MCH (RBC) [Entitic mass] 28.3 pg Normal 26.7-34.0 [facility] Comment on above: Performed By: #### HARI OLSONRO #### [facility] [address] [place] [address] Dr. Hardeep Rivera MCHC (RBC) [Mass/Vol] 32.6 g/dL Normal 29.9-35.2 [facility] Comment on above: Performed By: #### HARI OLSONRO #### [facility] [address] [place] [address] Dr. Hardeep Rivera MCV (RBC) [Entitic vol] 87.0 fL Normal 81.0-99.0 [facility] Comment on above: Performed By: #### HARI OLSONRO #### [facility] [address] [place] [address] Dr. Hardeep Rivera MONO # 0.8 103/ul Normal 0.3-0.8 [facility] Comment on above: Performed By: #### HARI OLSONRO #### [facility] [address] [place] [address] Dr. Hardeep Rivera Monocytes/100 WBC (Bld) 12.9 % Critically high 1.7-12.0 [facility] Comment on above: Performed By: #### AKSHAT OLSONICRO #### [facility] [address] [place] [address] Dr. Hardeep Rivera NEUT # 4.4 103/ul Normal 1.4-6.5 [facility] Comment on above: Performed By: #### AKSHAT OLSONICRO #### [facility] [address] [place] [address] Dr. Hardeep Rivera Neutrophils/100 WBC (Bld) 69.4 % Normal 43.0-75.0 [facility] Comment on above: Performed By: #### Deedee PINON ICRO #### [facility] [address] [place] [address] Dr. Hardeep Rivera Platelet mean volume (Bld) [Entitic vol] 9.0 fL Critically low 9.5-13.5 [facility] Comment on above: Performed By: #### AKSHAT OLSONICRO #### [facility] [address] [place] [address] Dr. Hardeep Rivera PLT 205 103/ul Normal 150-450 [facility] Comment on above: Performed By: #### AKSHAT OLSONICRO #### [facility] [address] [place] [address] Dr. Hardeep Rivera RBC 4.45 106/ul Normal 4.20-5.40 [facility] Comment on above: Performed By: #### AKSHAT OLSONICRO #### [facility] [address] [place] [address] Dr. Hardeep Rviera WBC 6.3 103/ul Normal 4.0-11.0 [facility] Comment on above: Performed By: #### RANDALL OLSON #### [facility] [address] [place] [address] HEAD WO CONon 02-14-2023 CT HEAD WO CON EXAMINATION: CT HEAD WO CON HISTORY: Headache COMPARISON: CT head 01/16/2019. TECHNIQUE: CT examination of the head without IV contrast. Dose reduction techniques were achieved by using automated exposure control and/or adjustment of mA and/or kV according to patient size and/or use of iterative reconstruction technique. FINDINGS: Calvarium/skull base: No evidence of acute fracture or destructive lesion. Mastoids and middle ears demonstrate no substantial mucosal disease. Paranasal sinuses: No air fluid levels. Brain: No acute intracranial hemorrhage. No acute large vascular territory infarct. Similar linear subcentimeter hypodensity involving the left frontal crews radiata white matter unchanged from 2015 likely relating to dystrophic calcification/mineral ization. Stable mild patchy hypoattenuation involving the supratentorial white matter which in this age group most commonly relates to sequela small vessel disease. No mass lesion or mass effect. No hydrocephalus. IMPRESSION: 1. No acute large vascular territory infarct or acute intracranial hemorrhage. 2. Similar probable dystrophic calcification involving the left frontal crews radiata white matter stable from 2015. This is of undetermined etiology with sequela of prior insult/injury or underlying cavernoma primary considerations. 3. Stable senescent change. Electronically authenticated by: CAMERON NELSON Date: 2023-02-14 15:46 Normal [facility] ER URINE PROFILEon 3 Bilirubin Ql (U) Negative Normal NEGATIVE [facility] Comment on above: Performed By: #### RANDALL OLSON #### [facility] [address] [place] [address] Dr. Hardeep Rivera Clarity (U) CLEAR Normal CLEAR [facility] Comment on above: Performed By: #### RANDALL OLSON #### [facility] [address] [place] [address] Dr. Hardeep Rivera Color (U) LT. YELLOW Normal YELLOW [facility] Comment on above: Performed By: #### RANDALL OLSON #### [facility] [address] [place] [address] Dr. Hardeep FRANCIS A micrscopic examination will be performed if indicated. Normal [facility] Comment on above: Performed By: #### Deedee PINON UMICRO #### [facility] [address] [place] [address] Dr. Hardeep Rivera Glucose Ql (U) Negative Normal NEGATIVE [facility] Comment on above: Performed By: #### Deedee PINON UMICRO #### [facility] [address] [address] [address] Hardeep Rivera Hemoglobin Ql (U) TRACE-INTACT Abnormal NEGATIVE [facility] Comment on above: Performed By: #### Deedee PINON UMICRO #### [facility] [address] [place] [address] Dr. Hardeep Rivera Ketones Ql (U) Negative Normal NEGATIVE [facility] Comment on above: Performed By: #### Deedee PINON UMICRO #### [facility] [address] [place] [address] Dr. Hardeep Rivera LEUKOCYTES Negative Normal NEGATIVE [facility] Comment on above: Performed By: #### Deedee PINON UMICRO #### [facility] [address] [place] [address] Dr. Hardeep Rivera Nitrite Ql (U) Negative Normal NEGATIVE [facility] Comment on above: Performed By: #### Deedee PINON UMICRO #### [facility] [address] [place] [address] Dr. Hardeep Rivera pH (U) 7.0 [pH] Normal 5-9 [facility] Comment on above: Performed By: #### Deedee PINON UMICRO #### [facility] [address] [place] [address] Dr. Hardeep Rivera Protein (U) [Mass/Vol] 30 mg/dL Abnormal NEGAT PEARL/ TRACE [facility] Comment on above: Performed By: #### Deedee PINON UMICRO #### [facility] [address] [place] [address] Dr. Hardeep Rivera SPEC GRAVITY 1.010 Normal 1.005-<=1.02 5 [facility] Comment on above: Performed By: #### HARI OLSONRO #### [facility] [address] [address] [address] Hardeep Rivera UR MICRO IND INDICATED Normal [facility] Comment on above: Performed By: #### HARI OLSONRO #### [facility] [address] [address] [address] Hardeep Rivera Urobilinogen Qn (U) 0.2 {Kevon'U}/dL Normal 0.2 - 1. 0 [facility] Comment on above: Performed By: #### HARI OLSONRO #### [facility] [address] [address] [address] Hardeep Rivera PROF 14(COMP METB)on 023 Albumin [Mass/Vol] 3.5 g/dL Normal 3.4-5.0 [facility] Comment on above: Performed By: #### H STROPN, CMP, TSH ####[facility] [address] [address]Dr. Hardeep Rivera Albumin/Globulin [Mass ratio] 1.2 {ratio} Normal [facility] Comment on above: Performed By: #### H STROPN, CMP, TSH ####[facility] [address] [address]Dr. Hardeep Rivera ALP [Catalytic activity/Vol] 153 U/L Critically high 46-116 [facility] Comment on above: Performed By: #### H STROPN, CMP, TSH ####[facility] [address] [address]Dr. Hardeep Rivera ALT [Catalytic activity/Vol] 21 U/L Normal 14-59 [facility] Comment on above: Performed By: #### H STROPN, CMP, TSH ####[facility] [address] [address]Dr. Hardeep Rivera Anion gap [Moles/Vol] 9.3 mmol/L Normal [facility] Comment on above: Performed By: #### H STROPN, CMP, TSH ####[facility] [address] [address]Dr. Hardeep Rivera AST [Catalytic activity/Vol] 23 U/L Normal 15-37 [facility] Comment on above: Performed By: #### H STRONATHANIEL, CMP, TSH ####[facility] [address] [address]Dr. Hardeep Rivera Bilirubin [Mass/Vol] 0.6 mg/dL Normal 0.2-1.0 [facility] Comment on above: Performed By: #### H STROPN, CMP, TSH ####[facility] [address] [address]Dr. Hardeep Rivera Calcium [Mass/Vol] 8.4 mg/dL Critically low 8.5-10.1 [facility] Comment on above: Performed By: #### H STROPN, CMP, TSH ####[facility] [address] [address]Dr. Hardeep Rivera Chloride [Moles/Vol] 96 mmol/L Critically low 98-107 [facility] Comment on above: Performed By: #### H STROPN, CMP, TSH ####[facility] [address] [address]Dr. Hardeep Rivera CO2 [Moles/Vol] 29.3 mmol/L Normal 21.0-32.0 [facility] Comment on above: Performed By: #### H STROPN, CMP, TSH ####[facility] [address] [address]Dr. Hardeep Rivera Creatinine [Mass/Vol] 1.16 mg/dL Critically high 0.55-1.02 [facility] Comment on above: Performed By: #### H STROPN, CMP, TSH ####[facility] [address] [address]Dr. Hardeep Rivera EGFR-AF ZIMBABWEAN 55 mL/min/1.73m2 Critically low >=60 [facility] Comment on above: Performed By: #### H STROPN, CMP, TSH ####[facility] [address] [address]Dr. Hardeep Rivera EGFR-NON AF ZIMBABWEAN 45 mL/min/1.73m2 Critically low >=60 [facility] Comment on above: Performed By: #### H TYLER CMP, TSH ####[facility] [address] [address]Dr. Hardeep Rivera Globulin (S) [Mass/Vol] 2.9 g/dL Normal [facility] Comment on above: Performed By: #### H STRONATHANIEL CMP, TSH ####[facility] [address] [address]Dr. Hardeep Rivera Glucose [Mass/Vol] 105 mg/dL Normal 74-106 [facility] Comment on above: Performed By: #### H TYLER CMP, TSH ####[facility] [address] [address]Dr. Hardeep Rivera Potassium [Moles/Vol] 4.6 mmol/L Normal 3.5-5.1 [facility] Comment on above: Performed By: #### H TYLER CMP, TSH ####[facility] [address] [address]Dr. Hardeep Rivera Protein [Mass/Vol] 6.4 g/dL Normal 6.4-8.2 [facility] Comment on above: Performed By: #### H TYLER CMP, TSH ####[facility] [address] [address]Dr. Hardeep Rivera Sodium [Moles/Vol] 130 mmol/L Critically low 136-145 [facility] Comment on above: Performed By: #### H STRONATHANIEL, CMP, TSH ####[facility] [address] [place] [address]Dr. Hardeep Rivera Urea nitrogen [Mass/Vol] 27.0 mg/dL Critically high 7.0-18.0 [facility] Comment on above: Performed By: #### H STROPN CMP, TSH ####[facility] [address] [address]Dr. Hardeep Rivera Urea nitrogen/Creatinine [Mass ratio] 23.3 mg/mg Normal [facility] Comment on above: Performed By: #### H STROPN, CMP, TSH ####[facility] [address] [id number]. Hardeep Rivera PROTIMEon 02-14-2023 INR Coag (PPP) [Relative time] 1.07 {INR} Normal [facility] Comment on above: Performed By: #### P T, PTT ####[facility] [address] [address]Dr. Hardeep Rivera INR GUIDELINES SEE BELOW Normal [facility] Comment on above: Result Comment: EDMUND RED INR: 2.0 - 3.0 CONDITIONS NOT LISTED BELOW 2.5 - 3.5 FOR PROSTHETIC HEART VALVE REPLACEMENT 2.5 - 3.5 RECURRENT THROMBOSIS Performed By: #### P T, PTT ####[facility] [address] [place] [address]Dr. Hardeep Rivera PT Coag (PPP) [Time] 11.3 s Normal 9.0-11.6 [facility] Comment on above: Performed By: #### P T, PTT ####[facility] [address] [address]Dr. Hardeep Rivera PTTon 02-14-2023 aPTT Coag (Bld) [Time] 29.1 s Normal 22.3-36.2 [facility] Comment on above: Performed By: #### P T, PTT ####[facility] [address] [address]Dr. Hardeep Rivera TROPONIN, HIGH SENSITIVITYon 02-14-2023 HSTROP 10.4 pg/mL Normal 4.0-51.3 [facility] Comment on above: Result Comment: CUT- OFF POINTS HAVE BEEN ESTABLISHED BASED ON THE FOURTH UNIVERSAL DEFINITIONS OF MYOCARDIAL INFARCTION. THE UPPER REFERENCE LIMIT (URL) OF TROPONIN, DEFINED THE 99TH PERCENTILE OF cTnI DISTRIBUTION IN A REFERENCE POPULATION, HAS BEEN CONFIRMED THE DECISION THRESHOLD FOR MA DIAGNOSIS. Performed By: #### H STROPN, CMP, TSH ####[facility] [address] [address]Dr. Hardeep Rivera TSHon 02-14-2023 TSH 1.237 uIU/mL Normal 0.358-3.740 [facility] Comment on above: Performed By: #### H STROPN, CMP, TSH ####[facility] [address] [address]Dr. Hardeep Rivera URINE MICROSCOPIC ONLYon BACTERIA NONE SEEN Normal NONE SEEN [facility] Comment on above: Performed By: #### E RUR, UMICRO #### [facility] [address] [address] [address] Hardeep Rivera Bacteria identified Cx Nom (U) NOT INDICATED Normal [facility] Comment on above: Performed By: #### E RUR, UMICRO #### [facility] [address] [address] [address] Hardeep Rivera CAST NONE SEEN Normal NONE SEEN [facility] Comment on above: Performed By: #### E RUR, UMICRO #### [facility] [address] [place] [address] Dr. Hardeep Rivera Crystals LM Nom (Urine sed) NONE SEEN Normal NONE SEEN [facility] Comment on above: Performed By: #### E RUR, UMICRO #### [facility] [address] [place] [address] Dr. Hardeep Rivera Epithelial cells LM Ql (Urine sed) NONE SEEN Normal NONE SEEN /RARE [facility] Comment on above: Performed By: #### E RUR, UMICRO #### [facility] [address] [place] [address] Dr. Hardeep Rivera MUCOUS NONE SEEN Normal NONE SEEN [facility] Comment on above: Performed By: #### E RUR, UMICRO #### [facility] [address] [place] [address] Dr. Hardeep Rivera RBC 0-2 Normal 0-2 [facility] Comment on above: Performed By: #### E RUR, UMICRO #### [facility] [address] [place] [address] Dr. Hardeep Rivera WBC NONE SEEN Normal NONE SEEN [facility] Comment on above: Performed By: #### E RUR, UMICRO #### [facility] [address] [place] [address] Dr. Hardeep Rivera XR CHEST 1 Von 02-14-2023 XR CHEST 1 V EXAM: Chest x-ray HISTORY: . Hypertensive disorder . COMPARISON: 03/28/2016 TECHNIQUE: Single view of the chest. FINDINGS: Heart and vascularity are unremarkable. Lungs are free of focal infiltrates. Early atherosclerotic changes of the thoracic aorta are noted. Median sternotomy sutures are noted. Impression: No acute heart or lung disease identified. Electronically authenticated by: JAZLYN DUBOSE Date: 2023-02-14 15:50 Normal [facility] FK506 (TACROLIMUS) WHOLE BLO ODon 02-13-2023 Tacrolimus (FK506), Blood 1.4 ng/mL Critically low 2.0-20.0 [facility] Comment on above: Result Comment: Trou gh (immediately following transplant) 15.0 . Trough (steady state, 2 weeks or more after transplant): 3.0 - 8.0 . Performed by LC-MS/MS technology. Performed By: #### E RUR #### [facility] [address] [address] [address] Hardeep Rivera PROF 14(COMP METB)on 023 Albumin [Mass/Vol] 3.5 g/dL Normal 3.4-5.0 [facility] Comment on above: Performed By: #### C MP ####[facility] [address] [address]DrLaura Rivera Albumin/Globulin [Mass ratio] 1.2 {ratio} Normal [facility] Comment on above: Performed By: #### C MP ####[facility] [address] [address]DrLaura Rivera ALP [Catalytic activity/Vol] 149 U/L Critically high 46-116 [facility] Comment on above: Performed By: #### C MP ####[facility] [address] [address]DrLaura Rivera ALT [Catalytic activity/Vol] 19 U/L Normal 14-59 [facility] Comment on above: Performed By: #### C MP ####[facility] [address] [address]DrLaura Rivera Anion gap [Moles/Vol] 11.7 mmol/L Normal [facility] Comment on above: Performed By: #### C MP ####[facility] [address] [place], [place] [address]Dr. Hardeep Miguel AST [Catalytic activity/Vol] 27 U/L Normal 15-37 [facility] Comment on above: Performed By: #### C MP ####[facility] [address] [place], [place] [address]Dr. Hardeep Rivera Bilirubin [Mass/Vol] 0.6 mg/dL Normal 0.2-1.0 [facility] Comment on above: Performed By: #### C MP ####[facility] [address] [place], [place] [address]Dr. Hardeep Rivera Calcium [Mass/Vol] 8.5 mg/dL Normal 8.5-10.1 [facility] Comment on above: Performed By: #### C MP ####[facility] [address] [place], [place] [address]Dr. Hardeep Rivera Chloride [Moles/Vol] 96 mmol/L Critically low 98-107 [facility] Comment on above: Performed By: #### C MP ####[facility] [address] [place], [place] [address]Dr. Hardeep Rivera CO2 [Moles/Vol] 28.1 mmol/L Normal 21.0-32.0 [facility] Comment on above: Performed By: #### C MP ####[facility] [address] [place], [place] [address]Dr. Hardeep Rivera Creatinine [Mass/Vol] 1.24 mg/dL Critically high 0.55-1.02 [facility] Comment on above: Performed By: #### C MP ####[facility] [address] [place], [place] [address]Dr. Hardeep Rivera EGFR-AF ZIMBABWEAN 51 mL/min/1.73m2 Critically low >=60 [facility] Comment on above: Performed By: #### C MP ####[facility] [address] [place], [place] [address]Dr. Hardeep Rivera EGFR-NON AF ZIMBABWEAN 42 mL/min/1.73m2 Critically low >=60 [facility] Comment on above: Performed By: #### C MP ####[facility] [address] [address]Dr. Hardeep Rivera Globulin (S) [Mass/Vol] 3.0 g/dL Normal [facility] Comment on above: Performed By: #### C MP ####[facility] [address] [address]Dr. aHrdeep Rivera Glucose [Mass/Vol] 141 mg/dL Critically high 74-106 T [facility] Comment on above: Performed By: #### C MP ####[facility] [address] [address]Dr. Hardeep Rivera Potassium [Moles/Vol] 4.8 mmol/L Normal 3.5-5.1 [facility] Comment on above: Performed By: #### C MP ####[facility] [address] [place], [place] [address]Dr. Hardeep Rivera Protein [Mass/Vol] 6.5 g/dL Normal 6.4-8.2 [facility] Comment on above: Performed By: #### C MP ####[facility] [address] [place], [place] [address]Dr. Hardeep Rivera Sodium [Moles/Vol] 131 mmol/L Critically low 136-145 Th [facility] Comment on above: Performed By: #### C MP ####[facility] [address] [place], [place] [address]Dr. Hardeep Rivera Urea nitrogen [Mass/Vol] 29.0 mg/dL Critically high 7.0-18.0 [facility] Comment on above: Performed By: #### C MP ####[facility] [address] [place], [place] [address]Dr. Hardeep Rivera Urea nitrogen/Creatinine [Mass ratio] 23.4 mg/mg Normal [facility] Comment on above: Performed By: #### C MP ####[facility] [address] [place], [place] [address]Dr. Hardeep Rivera Telemedicineon 02-11-2023 Telemedicine [id number] Sylvia Herrera 1945 F Date Provider Department Center 02/11/2023 ANISHA JACOBS [facility] Family History Family history unknown: Yes Level of Service:35507 NM PHYS/QHP TELEPHONE EVALUATION 11-20 MIN [facility] 36on 01-16-[address] Rooney's office called today to make you aware that Duyen ODETTE Rogers started Sylvia on losartan 50mg daily on 01/03. She would've been taking it when she saw you on 01/07, but she did not tell us. You stopped her amlodipine and increased her metoprolol. FYI Normal [facility] BNPon 01-09-2023 Natriuretic peptide B (Bld) [Mass/Vol] 336.0 pg/mL Normal <=1,800.0 [facility] Comment on above: Performed By: #### C MP, TSH, BNP, T7 ####[facility] [address] [address]Dr. Hardeep Rivera CBC AUTO DIFFon 01-09-2023 BASO # 0.0 103/ul Normal 0.0-0.1 [facility] Comment on above: Performed By: #### C BC #### [facility] [address] [address] [address] Hardeep Rivera Basophils/100 WBC (Bld) 0.4 % Normal 0.2-2.0 [facility] Comment on above: Performed By: #### C BC #### [facility] [address] [address] [address] Hardeep Rivera EO # 0.3 103/ul Normal 0.0-0.7 [facility] Comment on above: Performed By: #### C BC #### [facility] [address] [address] [address] Hardeep Rivera Eosinophils/100 WBC (Bld) 4.4 % Normal 0.9-7.0 [facility] Comment on above: Performed By: #### C BC #### [facility] [address] [address] [address] Hardeep Rivera Erythrocyte distribution width (RBC) [Ratio] 12.3 % Normal 11.0-15.0 [facility] Comment on above: Performed By: #### C BC #### [facility] [address] [place] [address] Dr. Hardeep Rivera Hematocrit (Bld) [Volume fraction] 43.3 % Normal 36.0-48.0 [facility] Comment on above: Performed By: #### C BC #### [facility] [address] [place] [address] Dr. Hardeep Rivera Hemoglobin (Bld) [Mass/Vol] 13.5 g/dL Normal 12.0-16.0 [facility] Comment on above: Performed By: #### C BC #### [facility] [address] [place] [address] Dr. Hardeep Rivera IG # 0.02 10e3/ul Normal 0.00-0.03 [facility] Comment on above: Performed By: #### C BC #### [facility] [address] [place] [address] Dr. Hardeep Rivera IG % 0.3 % Normal 0.0-0.5 [facility] Comment on above: Performed By: #### C BC #### [facility] [address] [place] [address] Dr. Hardeep Rivera LYMPH # 1.1 103/ul Critically low 1.2-3.8 [facility] Comment on above: Performed By: #### C BC #### [facility] [address] [place] [address] Dr. Hardeep Rivera Lymphocytes/100 WBC (Bld) 16.0 % Critically low 20.5-60.0 [facility] Comment on above: Performed By: #### C BC #### [facility] [address] [place] [address] Dr. Hardeep Rivera MANUAL DIFF REQ NO Normal [facility] Comment on above: Performed By: #### C BC #### [facility] [address] [place] [address] Dr. Hardeep Rivera MCH (RBC) [Entitic mass] 28.4 pg Normal 26.7-34.0 [facility] Comment on above: Performed By: #### C BC #### [facility] [address] [place] [address] Dr. Hardeep Rivera MCHC (RBC) [Mass/Vol] 31.2 g/dL Normal 29.9-35.2 [facility] Comment on above: Performed By: #### C BC #### [facility] [address] [place] [address] Dr. Hardeep Rivera MCV (RBC) [Entitic vol] 91.0 fL Normal 81.0-99.0 [facility] Comment on above: Performed By: #### C BC #### [facility] [address] [place] [address] Dr. Hardeep Rivera MONO # 1.0 103/ul Critically high 0.3-0.8 [facility] Comment on above: Performed By: #### C BC #### [facility] [address] [place] [address] Dr. Hardeep Rivera Monocytes/100 WBC (Bld) 14.7 % Critically high 1.7-12.0 [facility] Comment on above: Performed By: #### C BC #### [facility] [address] [place] [address] Dr. Hardeep Rivera NEUT # 4.4 103/ul Normal 1.4-6.5 [facility] Comment on above: Performed By: #### C BC #### [facility] [address] [place] [address] Dr. Hardeep Rivera Neutrophils/100 WBC (Bld) 64.2 % Normal 43.0-75.0 [facility] Comment on above: Performed By: #### C BC #### [facility] [address] [place] [address] Dr. Hardeep Rivera Platelet mean volume (Bld) [Entitic vol] 9.5 fL Normal 9.5-13.5 [facility] Comment on above: Performed By: #### C BC #### [facility] [address] [place] [address] Dr. Hardeep Rivera PLT 238 103/ul Normal 150-450 [facility] Comment on above: Performed By: #### C BC #### [facility] [address] [address] [address] Hardeep Rivera RBC 4.76 106/ul Normal 4.20-5.40 [facility] Comment on above: Performed By: #### C BC #### [facility] [address] [address] [address] Hardeep Rivera WBC 6.8 103/ul Normal 4.0-11.0 [facility] Comment on above: Performed By: #### C BC #### [facility] [address] [address] [address] Hardeep Rivera FREE THYROXINE INDEX T7on FTI 3.96 Normal 1.30-4.50 [facility] Comment on above: Performed By: #### C MP, TSH, BNP, T7 ####[facility] [address] [address]Dr. Hardeep Rivera T3U 35.0 % Normal 30.0-39.0 [facility] Comment on above: Performed By: #### C MP, TSH, BNP, T7 ####[facility] [address] [address]Dr. Hardeep Rivera T4 [Mass/Vol] 11.30 ug/dL Normal 4.80-13.90 [facility] Comment on above: Performed By: #### C MP, TSH, BNP, T7 ####[facility] [address] [address]Dr. Hardeep Rivera PROF 14(COMP METB)on 023 Albumin [Mass/Vol] 3.9 g/dL Normal 3.4-5.0 [facility] Comment on above: Performed By: #### C MP, TSH, BNP, T7 ####[facility] [address] [address]Dr. Hardeep Rivera Albumin/Globulin [Mass ratio] 1.2 {ratio} Normal [facility] Comment on above: Performed By: #### C MP, TSH, BNP, T7 ####[facility] [address] [address]Dr. Hardeep Rivera ALP [Catalytic activity/Vol] 151 U/L Critically high 46-116 [facility] Comment on above: Performed By: #### C MP, TSH, BNP, T7 ####[facility] [address] [address]Dr. Hardeep Rivera ALT [Catalytic activity/Vol] 30 U/L Normal 14-59 [facility] Comment on above: Performed By: #### C MP, TSH, BNP, T7 ####[facility] [address] [address]Dr. Hardeep Rivera Anion gap [Moles/Vol] 15.6 mmol/L Normal [facility] Comment on above: Performed By: #### C MP, TSH, BNP, T7 ####[facility] [address] [place], [place] [address]Dr. Hardeep Rivera AST [Catalytic activity/Vol] 23 U/L Normal 15-37 [facility] Comment on above: Performed By: #### C MP, TSH, BNP, T7 ####[facility] [address] [place], [place] [address]Dr. Hardeep Rivera Bilirubin [Mass/Vol] 0.7 mg/dL Normal 0.2-1.0 [facility] Comment on above: Performed By: #### C MP, TSH, BNP, T7 ####[facility] [address] [place], [place] [address]Dr. Hardeep Rivera Calcium [Mass/Vol] 9.0 mg/dL Normal 8.5-10.1 [facility] Comment on above: Performed By: #### C MP, TSH, BNP, T7 ####[facility] [address] [address]Dr. Hardeep Rivera Chloride [Moles/Vol] 97 mmol/L Critically low 98-107 [facility] Comment on above: Performed By: #### C MP, TSH, BNP, T7 ####[facility] [address] [address]Dr. Hardeep Rivera CO2 [Moles/Vol] 26.1 mmol/L Normal 21.0-32.0 [facility] Comment on above: Performed By: #### C MP, TSH, BNP, T7 ####[facility] [address] [address]Dr. Hardeep Rivera Creatinine [Mass/Vol] 1.78 mg/dL Critically high 0.55-1.02 [facility] Comment on above: Performed By: #### C MP, TSH, BNP, T7 ####[facility] [address] [place], [place] [address]Dr. Hardeep Rivera EGFR-AF ZIMBABWEAN 33 mL/min/1.73m2 Critically low >=60 [facility] Comment on above: Performed By: #### C MP, TSH, BNP, T7 ####[facility] [address] [place], [place] [address]Dr. Hardeep Rivera EGFR-NON AF ZIMBABWEAN 28 mL/min/1.73m2 Critically low >=60 [facility] Comment on above: Performed By: #### C MP, TSH, BNP, T7 ####[facility] [address] [place], [place] [address]Dr. Hardeep Rivera Globulin (S) [Mass/Vol] 3.3 g/dL Normal [facility] Comment on above: Performed By: #### C MP, TSH, BNP, T7 ####[facility] [address] [address]Dr. Hardeep Rivera Glucose [Mass/Vol] 127 mg/dL Critically high 74-[address] [facility] Comment on above: Performed By: #### C MP, TSH, BNP, T7 ####[facility] [address] [place] [address]Dr. Hardeep Rivera Potassium [Moles/Vol] 3.7 mmol/L Normal 3.5-5.1 [facility] Comment on above: Performed By: #### C MP, TSH, BNP, T7 ####[facility] [address] [address]Dr. Hardeep Rivera Protein [Mass/Vol] 7.2 g/dL Normal 6.4-8.2 [facility] Comment on above: Performed By: #### C MP, TSH, BNP, T7 ####[facility] [address] [address]Dr. Hardeep Rivera Sodium [Moles/Vol] 135 mmol/L Critically low 136-145 [facility] Comment on above: Performed By: #### C MP, TSH, BNP, T7 ####[facility] [address] [address]Dr. Hardeep Rivera Urea nitrogen [Mass/Vol] 54.0 mg/dL Critically high 7.0-18.0 [facility] Comment on above: Performed By: #### C MP, TSH, BNP, T7 ####[facility] [address] [address]Dr. Hardeep Rivera Urea nitrogen/Creatinine [Mass ratio] 30.3 mg/mg Normal [facility] Comment on above: Performed By: #### C MP, TSH, BNP, T7 ####[facility] [address] [place] [address]Dr. Hardeep Rivera TSHon 01-09-2023 TSH 1.097 uIU/mL Normal 0.358-3.740 [facility] Comment on above: Performed By: #### C MP, TSH, BNP, T7 ####[facility] [address] [address]Dr. Hardeep Rivera Office Visiton 01-07-2023 Follow-up visit [id number] Sylvia Herrera Erin 1945 F Date Provider Department Center 01/07/2023 ANISHA JACOBS [facility] Family History Family history unknown: Yes Level of Service:53306 NM OFFICE/OUTPATIENT ESTABLISHED MOD MDM 30-39 MIN Normal [facility] ECHOCARDIO M/2D COMPLETEon 0 12-13-2022 ECHOCARDIO M/2D COMPLETE Patient: SYLVIA HERRERA Exam Date: 12/13/2022 : 1945 Gender:F Ordering : [facility] Admission #: [id number] Family : Order #: [id number] CLICK HERE TO VIEW EXAM ECHOCARDIOGRAM REPORT PROCEDURE: CARDIO PULMONARY ECHOCARDIO M/2D COMP INDICATIONS: Lower extremity edema, S/P heart transplant 17 years ago COMPARISON: None. DESCRIPTION: COMPLETE ECHOCARDIOGRAM Real-time transthoracic echocardiography with 2D, M-mode, spectral and color flow Doppler performed. QUALITY: Lumason contrast was administered due to suboptimal imaging for left ventricular opacification to improve delineation of endocardial boarders. LEFT VENTRICLE: Normal chamber size. Moderate concentric left ventricular hypertrophy. LV EF: Global left ventricular systolic function is normal. Calculated left ventricular ejection fraction is 68%. No significant wall motion abnormalities. DIASTOLIC: Unable to assess diastolic function. ATRIAL SEPTUM: Inadequately seen. LEFT ATRIUM: Enlarged consistent with heart transplant. RIGHT ATRIUM: Enlarged consistent with heart transplant. RIGHT VENTRICLE: Normal chamber size. Normal right ventricular systolic function. TRICUSPID VALVE: Normal mobility and thickness. Mild regurgitation. Mild pulmonary hypertension. RVSP 39mmHg MITRAL VALVE: Normal mobility and thickness. No mitral valve prolapse. No evidence of mitral valve stenosis. There is no mitral annular calcification. Mild mitral regurgitation. AORTIC VALVE: Normal trileaflet appearance. No visible sclerosis. Normal leaflet mobility. No evidence of aortic valve stenosis. Mild aortic regurgitation. AORTIC ROOT: Normal diameter and appearance. PULMONIC VALVE: Normal thickness and mobility. No stenosis. No regurgitation. PERICARDIUM: Anterior free space; trivial effusion versus fat pad. IVC: Collapses with inspirations. Normal size. CONCLUSION: Global left ventricular systolic function is normal; visually estimated ejection fraction is 60 to 65%. Unable to assess diastolic function. The atria are enlarged consistent with a prior history of heart transplantation. The right ventricle is normal in size and systolic function. Mild tricuspid regurgitation. Mildly elevated right-sided pressures. Mild mitral regurgitation. Mild aortic regurgitation. Anterior free space; trivial effusion versus fat pad. Adult Echocardiography Procedure Report Left Ventricle LVEDD (3.7 - 5.6 cm): 4.36 cm LVESD (2.2 - 4.0 cm): 2.97 cm LVIVS thickness (0.6 - 1.2 cm): 1.23 cm LVPW thickness (0.5 - 1.0 cm): 1.07 cm e': 0.13 m/s E - e': 9.30 LVOT Max Gradient: 2.68 mm[Hg] Peak Velocity (LVOT): 0.82 m/s Mean Velocity (LVOT): 0.59 m/s LVOT Diameter 1.94 cm Left Ventricular Ejection Fraction: 60.06 %, 60.06 % Left Atrium LA Volume Index (2D A2C): 99.57 ml, 99.57 ml Left Atrium Systolic Dimension: 4.65 cm Mitral Valve MV E to A Ratio: 2.92, 2.53 Mitral Valve A-Wave Peak Velocity: 0.42 m/s, 0.44 m/s Mitral Valve E-Wave Peak Velocity: 1.23 m/s, 1.12 m/s Right Ventricle RV Internal Diastolic Dimension: 3.29 cm Aorta AO Root Diam: 3.11 cm Ascending Ao Diam: 2.44 cm Aortic Valve AoV Area (Peak Chris): 2.01 cm2, 2.01 cm2 AoV Area (VTI): 2.23 cm2, 2.23 cm2 Deceleration Mcintosh: 1.44 m/s2 Pressure Half-Time: 850.98 ms Peak Velocity(Antegrade Flow): 1.20 m/s Peak Gradient(Antegrade Flow): 5.77 mm[Hg] Mean Velocity(Antegrade Flow): 0.82 m/s Mean Gradient(Antegrade Flow): 3.04 mm[Hg] Velocity Time Integral: 26.21 cm Tricuspid Valve Peak Velocity (Regurgitant Flow): 3.02 m/s, 2.74 m/s Pulmonic Valve Mean Gradient: 1.61 mm[Hg] Mean Velocity: 0.59 m/s Peak Velocity: 0.88 m/s, 0.77 m/s Peak Gradient: 3.09 mm[Hg], 2.40 mm[Hg] Right Atrium Right Atrium Systolic Pressure: 27.91 ml, 27.91 ml Dictated by: Michael Nolan M.D. on 12/14/2022 at 13:42 Approved by: Michael Nolan M.D. on 12/14/2022 at 13:49 Normal [facility] US ALAN DOP LEG BILon 023 US ALAN DOP LEG TRISHA EXAMINATION: US ALAN DOP LEG TRISHA HISTORY: Localized edema ; bilateral lower extremity swelling COMPARISON: Ultrasound venous Doppler leg left 02/27/2021 FINDINGS: REGION: Bilateral lower extremities. THROMBI: None. COMPRESSIBILITY: Normal compressibility. FLOW: Normal waveform and antegrade flow between 5 and 20 cm/s. OTHER: None. IMPRESSION: 1. No deep vein thrombus within the right or left lower extremity. Electronically authenticated by: HAI FOSTER Date: 2022-12-13 10:51 Normal [facility] BNPon 12-11-2022 Natriuretic peptide B (Bld) [Mass/Vol] 457.0 pg/mL Normal <=1,800.0 [facility] Comment on above: Performed By: #### RANDALL OLSON #### [facility] [address] [place] [address] Dr. Hardeep Rivera CBC AUTO DIFFon 12-11-2022 BASO # 0.0 103/ul Normal 0.0-0.1 [facility] Comment on above: Performed By: #### HARI OLSONRO #### [facility] [address] [place] [address] Dr. Hardeep Rivera Basophils/100 WBC (Bld) 0.4 % Normal 0.2-2.0 [facility] Comment on above: Performed By: #### HARI OLSONRO #### [facility] [address] [place] [address] Dr. Hardeep Rivera EO # 0.2 103/ul Normal 0.0-0.7 [facility] Comment on above: Performed By: #### HARI OLSONRO #### [facility] [address] [place] [address] Dr. Hardeep Rivera Eosinophils/100 WBC (Bld) 2.7 % Normal 0.9-7.0 [facility] Comment on above: Performed By: #### HARI OLSONRO #### [facility] [address] [place] [address] Dr. Hardeep Rivera Erythrocyte distribution width (RBC) [Ratio] 11.9 % Normal 11.0-15.0 [facility] Comment on above: Performed By: #### HARI OLSONRO #### [facility] [address] [place] [address] Dr. Hardeep Rivera Hematocrit (Bld) [Volume fraction] 40.2 % Normal 36.0-48.0 [facility] Comment on above: Performed By: #### Deedee PINON UMICRO #### [facility] [address] [place] [address] Dr. Hardeep Rivera Hemoglobin (Bld) [Mass/Vol] 13.5 g/dL Normal 12.0-16.0 [facility] Comment on above: Performed By: #### Deedee PNION UMICRO #### [facility] [address] [place] [address] Dr. Hardeep Rivera IG # 0.03 10e3/ul Normal 0.00-0.03 [facility] Comment on above: Performed By: #### Deedee PINON UMICRO #### [facility] [address] [place] [address] Dr. Hardeep Rivera IG % 0.4 % Normal 0.0-0.5 [facility] Comment on above: Performed By: #### Deedee PINON UMICRO #### [facility] [address] [place] [address] Dr. Hardeep Rivera LYMPH # 0.9 103/ul Critically low 1.2-3.8 [facility] Comment on above: Performed By: #### Deedee PINON UMICRO #### [facility] [address] [place] [address] Dr. Hardeep Rivera Lymphocytes/100 WBC (Bld) 11.3 % Critically low 20.5-60.0 [facility] Comment on above: Performed By: #### Deedee PINON UMICRO #### [facility] [address] [place] [address] Dr. Hardeep Rivera MANUAL DIFF REQ NO Normal [facility] Comment on above: Performed By: #### Deedee PINON UMICRO #### [facility] [address] [place] [address] Dr. Hardeep Rivera MCH (RBC) [Entitic mass] 28.4 pg Normal 26.7-34.0 [facility] Comment on above: Performed By: #### Deedee PINON UMICRO #### [facility] [address] [place] [address] Dr. Hardeep Rivera MCHC (RBC) [Mass/Vol] 33.6 g/dL Normal 29.9-35.2 [facility] Comment on above: Performed By: #### AKSHAT OLSONICRO #### [facility] [address] [place] [address] Dr. Hardeep Rivera MCV (RBC) [Entitic vol] 84.5 fL Normal 81.0-99.0 [facility] Comment on above: Performed By: #### Deedee PINON UMICRO #### [facility] [address] [place] [address] Dr. Hardeep Rivera MONO # 1.0 103/ul Critically high 0.3-0.8 [facility] Comment on above: Performed By: #### Deedee PINON UMICRO #### [facility] [address] [place] [address] Dr. Hardeep Rivera Monocytes/100 WBC (Bld) 12.5 % Critically high 1.7-12.0 [facility] Comment on above: Performed By: #### Deedee PINON UMICRO #### [facility] [address] [place] [address] Dr. Hardeep Rivera NEUT # 5.9 103/ul Normal 1.4-6.5 [facility] Comment on above: Performed By: #### Deedee PINON UMICRO #### [facility] [address] [place] [address] Dr. Hardeep Rivera Neutrophils/100 WBC (Bld) 72.7 % Normal 43.0-75.0 [facility] Comment on above: Performed By: #### Deedee PINON UMICRO #### [facility] [address] [place] [address] Dr. Hardeep Rivera Platelet mean volume (Bld) [Entitic vol] 8.6 fL Critically low 9.5-13.5 [facility] Comment on above: Performed By: #### Deedee PINON UMICRO #### [facility] [address] [place] [address] Dr. Hardeep Rivera PLT 226 103/ul Normal 150-450 [facility] Comment on above: Performed By: #### HARI OLSONRO #### [facility] [address] [place] [address] Dr. Hardeep Rivera RBC 4.76 106/ul Normal 4.20-5.40 [facility] Comment on above: Performed By: #### HARI OLSONRO #### [facility] [address] [place] [address] Dr. Hardeep Rivera WBC 8.2 103/ul Normal 4.0-11.0 [facility] Comment on above: Performed By: #### Deedee PINON UMICRO #### [facility] [address] [place] [address] Dr. Hardeep Rivera FREE THYROXINE INDEX T7on FTI 3.40 Normal 1.30-4.50 [facility] Comment on above: Performed By: #### HARI OLSONRO #### [facility] [address] [place] [address] Dr. Hardeep Rivera T3U 34.0 % Normal 30.0-39.0 [facility] Comment on above: Performed By: #### HARI OLSONRO #### [facility] [address] [place] [address] Dr. Hardeep Rivera T4 [Mass/Vol] 10.00 ug/dL Normal 4.80-13.90 [facility] Comment on above: Performed By: #### HARI OLSONRO #### [facility] [address] [place] [address] Dr. Hardeep Rivera PROF 14(COMP METB)on 023 Albumin [Mass/Vol] 3.8 g/dL Normal 3.4-5.0 [facility] Comment on above: Performed By: #### HARI OLSONRO #### [facility] [address] [place] [address] Dr. Hardeep Rivera Albumin/Globulin [Mass ratio] 1.1 {ratio} Normal [facility] Comment on above: Performed By: #### HARI OLSONRO #### [facility] [address] [place] [address] Dr. Hardeep Rivera ALP [Catalytic activity/Vol] 192 U/L Critically high 46-116 [facility] Comment on above: Performed By: #### RANDALL OLSON #### [facility] [address] [place] [address] Dr. Hardeep Rivera ALT [Catalytic activity/Vol] 22 U/L Normal 14-59 [facility] Comment on above: Performed By: #### HARI OLSONRO #### [facility] [address] [place] [address] Dr. Hardeep Rivera Anion gap [Moles/Vol] 11.4 mmol/L Normal [facility] Comment on above: Performed By: #### HARI OLSONRO #### [facility] [address] [place] [address] Dr. Hardeep Rivera AST [Catalytic activity/Vol] 22 U/L Normal 15-37 [facility] Comment on above: Performed By: #### HARI OLSONRO #### [facility] [address] [place] [address] Dr. Hardeep Rivera Bilirubin [Mass/Vol] 0.5 mg/dL Normal 0.2-1.0 [facility] Comment on above: Performed By: #### HARI OLSONRO #### [facility] [address] [place] [address] Dr. Hardeep Rivera Calcium [Mass/Vol] 9.1 mg/dL Normal 8.5-10.1 [facility] Comment on above: Performed By: #### HARI OLSONRO #### [facility] [address] [place] [address] Dr. Hardeep Rivera Chloride [Moles/Vol] 93 mmol/L Critically low 98-107 [facility] Comment on above: Performed By: #### HARI OLSONRO #### [facility] [address] [place] [address] Dr. Hardeep Rivera CO2 [Moles/Vol] 30.8 mmol/L Normal 21.0-32.0 [facility] Comment on above: Performed By: #### Deedee PINON UMICRO #### [facility] [address] [place] [address] Dr. Hardeep Rivera Creatinine [Mass/Vol] 1.49 mg/dL Critically high 0.55-1.02 [facility] Comment on above: Performed By: #### E RUR, UMICRO #### [facility] [address] [place] [address] Dr. Hardeep Rivera EGFR-AF ZIMBABWEAN 41 mL/min/1.73m2 Critically low >=60 [facility] Comment on above: Performed By: #### E RUR, UMICRO #### [facility] [address] [place] [address] Dr. Hardeep Rivera EGFR-NON AF ZIMBABWEAN 34 mL/min/1.73m2 Critically low >=60 [facility] Comment on above: Performed By: #### E RUR, UMICRO #### [facility] [address] [place] [address] Dr. Hardeep Rivera Globulin (S) [Mass/Vol] 3.4 g/dL Normal [facility] Comment on above: Performed By: #### E COLLINSR UMICRO #### [facility] [address] [place] [address] Dr. Hardeep Rivera Glucose [Mass/Vol] 116 mg/dL Critically high 74-106 T [facility] Comment on above: Performed By: #### E RUR, UMICRO #### [facility] [address] [place] [address] Dr. Hardeep Rivera Potassium [Moles/Vol] 4.2 mmol/L Normal 3.5-5.1 [facility] Comment on above: Performed By: #### E RUR, UMICRO #### [facility] [address] [place] [address] Dr. Hardeep Rivera Protein [Mass/Vol] 7.2 g/dL Normal 6.4-8.2 [facility] Comment on above: Performed By: #### E RUR, UMICRO #### [facility] [address] [place] [address] Dr. Hardeep Rivera Sodium [Moles/Vol] 131 mmol/L Critically low 136-145 Th [facility] Comment on above: Performed By: #### HARI OLSONRO #### [facility] [address] [address] [address] Hardeep Rivera Urea nitrogen [Mass/Vol] 38.0 mg/dL Critically high 7.0-18.0 [facility] Comment on above: Performed By: #### Deedee PINON, HARIRO #### [facility] [address] [address] [address] Hardeep Rivera Urea nitrogen/Creatinine [Mass ratio] 25.5 mg/mg Normal [facility] Comment on above: Performed By: #### HARI OLSONRO #### [place] [facility] [address] [place] [address] Dr. Hardeep Rivera TSHon 12-11-2022 TSH 6.407 uIU/mL Critically high 0.358-3.740 [facility] Comment on above: Performed By: #### HARI OLSONRO #### [facility] [address] [place] [address] Dr. Hardeep Rivera 36on 12-07-2022 36 Pt had called pcp they ordered echo and labs will watch for results Normal [facility] Covid-19 PCR ([facility])on 11-01 SARS-CoV-2 (COVID-19) RNA ULICES+probe Ql (Unsp spec) Not detected Normal NOT DETECTED [facility] Comment on above: Result Comment: This test is not yet approved or cleared by the [place] FDA. When there are no FDA-approved or cleared tests available, and other criteria are met, FDA can make tests available under an emergency access mechanism called an Emergency Use Authorization (EUA). The EUA for this test is supported by the [place] [employer] of Health and Human Service's (HHS's) declaration that circumstances exist to justify the emergency use of in vitro diagnostics for the detection and/or diagnosis of the virus that causes COVID-19. This EUA will remain in effect (meaning this test can be used) for the duration of the COVID-19 declaration justifying emergency of IVDs, unless it is terminated or revoked by FDA (after which the test may no longer be used). When diagnostic testing is negative, the possibility of a false negative should be considered in the context of a patient's recent exposures and the presence of clinical signs and symptoms consistent with SARS-CoV-2. Performed By: #### C [facility] #### [facility] [address] [place] [address] Dr. Hardeep Rivera INFLUENZA A AND B AGon 11-14 [facility] SEE BELOW Normal [facility] Comment on above: Result Comment: Nega tive for Flu A protein angiten. Infection due to Flu A cannot be ruled out. Flu A angiten in the sample may be below the detection limit of the test. Performed By: #### Deedee PINON ICRO #### [facility] [address] [place] [address] Dr. Hardeep Rivera [facility] Normal [facility] Comment on above: Result Comment: Nega tive for Flu B protein antigen. Infection due to Flu B cannot be ruled out. Flu B antigen in the sample may be below the detection limit of the test. Performed By: #### Deedee PINON UMICRO #### [facility] [address] [place] [address] Dr. Hardeep Rivera INFLUENZA A AG Negative Normal NEGATIVE SEE COMMENT [facility] Comment on above: Performed By: #### Deedee PINON UMICRO #### [facility] [address] [place] [address] Dr. Hardeep Rivear INFLUENZA B AG Negative Normal NEGATIVE SEE COMMENT [facility] Comment on above: Performed By: #### Deedee PINON UMICRO #### [facility] [address] [place] [address] Dr. Hardeep Rivera INTERNAL CONTROLS Within Normal Limits Normal Wi thin Normal Limits [facility] Comment on above: Performed By: #### Deedee PINON, UMICRO #### [facility] [address] [place] [address] Dr. Hardeep Rivera Covid-19 PCR ([facility])on SARS-CoV-2 (COVID-19) RNA ULICES+probe Ql (Unsp spec) Not detected Normal NOT DETECTED [facility] Comment on above: Result Comment: This test is not yet approved or cleared by the [place] FDA. When there are no FDA-approved or cleared tests available, and other criteria are met, FDA can make tests available under an emergency access mechanism called an Emergency Use Authorization (EUA). The EUA for this test is supported by the [place] [employer] of Health and Human Service's (HHS's) declaration that circumstances exist to justify the emergency use of in vitro diagnostics for the detection and/or diagnosis of the virus that causes COVID-19. This EUA will remain in effect (meaning this test can be used) for the duration of the COVID-19 declaration justifying emergency of IVDs, unless it is terminated or revoked by FDA (after which the test may no longer be used). When diagnostic testing is negative, the possibility of a false negative should be considered in the context of a patient's recent exposures and the presence of clinical signs and symptoms consistent with SARS-CoV-2. Performed By: #### C VDTB #### [facility] [address] [place] [address] Dr. Hardeep Rivera INFLUENZA A AND B AGon 10-03 [facility] Normal [facility] Comment on above: Result Comment: Nega tive for Flu A protein angiten. Infection due to Flu A cannot be ruled out. Flu A angiten in the sample may be below the detection limit of the test. Performed By: #### HARI OLSONRO #### [facility] [address] [place] [address] Dr. Hard[facility]ep [facility] SEE BELOW Normal [facility] Comment on above: Result Comment: Nega tive for Flu B protein antigen. Infection due to Flu B cannot be ruled out. Flu B antigen in the sample may be below the detection limit of the test. Performed By: #### HARI OLSONRO #### [facility] [address] [place] [address] Dr. Hardeep Rivera INFLUENZA A AG Negative Normal NEGATIVE SEE COMMENT [facility] Comment on above: Performed By: #### AKSHAT OLSONICRO #### [facility] [address] [address] [address] Hardeep Rivera INFLUENZA B AG Negative Normal NEGATIVE SEE COMMENT [facility] Comment on above: Performed By: #### RANDALL OLSON #### [facility] [address] [address] [address] Hardeep Rivera INTERNAL CONTROLS Within Normal Limits Normal Wi thin Normal Limits [facility] Comment on above: Performed By: #### RANDALL OLSON #### [facility] [address] [address] [address] Hardeep Clark 08-16-2022 CNPN Telephone (CARD [facility]) SYLVIA HERRERA ([id number]) 1945 F Date Time Provider Department 08/16/22 SOY MCCANN [facility] During your visit today, we recorded the following information about you: Soy Mccann RN 08/16/2022 1:48 PM Signed Patient called heart transplant office looking for lab results; reviewed per previous encounter and relayed to patient. Patient also reports she was seen in ER for abdominal pain and diagnosed with an inflamed pancreas. She is waiting to see GI. Allergies As of Date: 08/16/2022 Noted Allergy Reaction PERCOCET (OXYCODONE-ACETAMINOP HEN)05/18/2014 8 - GI Upset PHENERGAN (PROMETHAZINE HCL) 10/11/2005 14 - Other: See Comments Comments: hallucinations Date Reviewed: 09/02/2019 Reviewed by: Sandrita Guerrero - Fully Assessed Reason for Visit: Heart Transplant Follow Up [1020] Cmt: Abdominal pain Prescriptions as of 08/16/2022 - mycophenolate mofetil (CELLCEPT) 250 mg capsule take 2 capsules by mouth every morning and 2 capsules every evening. Z94.1 heart replaced by transplant - tacrolimus IR (PROGRAF) 0.5 mg capsule Take 1 capsule by mouth once daily. 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 No Dr Don - amitriptyline (ELAVIL) 10 mg tablet Take 1 tablet by mouth daily at bedtime. - losartan (COZAAR) 100 mg tablet Take 1 tablet by mouth once daily. - magnesium oxide (MAG-OX) 400 mg (241.3 mg magnesium) tablet Take 1 tablet by mouth once daily. - clonazePAM (KLONOPIN) 0.5 mg tablet Take 2 tablets by mouth as needed for up to 180 days. - levothyroxine (SYNTHROID) 88 mcg tablet Take 1 tablet by mouth once daily. - buPROPion XL (WELLBUTRIN XL) 300 mg 24 hr tablet Take 1 tablet by mouth once daily. - simvastatin (ZOCOR) 20 mg tablet Take 1 tablet by mouth daily at bedtime. - Loperamide HCl (IMODIUM) 2 mg tab Take 2 mg by mouth three times daily. - keqjau-efijhkxv-leqeu se (CREON) 24,000-76,000 -120,000 unit cpDR Take 3 capsules by mouth three times daily with meals. TAKE 3 CAPSULES THREE TIMES A DAY WITH MEALS AND 1 CAPSULE IF HAVING A SNACK - pramipexole (MIRAPEX) 0.25 mg tablet Take 1 tablet by mouth daily at bedtime. - alendronate (FOSAMAX) 70 mg tablet Take 1 tablet by mouth once each week. in the morning with a full glass of water, on an empty stomach, and do not take anything else by mouth or lie down for the next 30 minutes. - acetaminophen 325 mg tablet Take 1-2 tablets by mouth every 4 hours as needed. - omega-3 fatty acids 1,000 mg cap Take 2 capsules by mouth once daily. - Cholecalciferol, Vitamin D3, (VITAMIN D) 1,000 unit Tab Take 1 tablet by mouth once daily. - aspirin(ECOTRIN LOW STRENGTH 81 MG TAB) Take one(1) tablet daily. - MULTIVITAMIN TAB Take one(1) tablet daily. 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 Heart replaced by transplant [Z94.1] 03/19/2006 08/12/2013 Chronic ethmoidal sinusitis [J32.2] 10/30/2007 08/12/2013 Unspecified essential hypertension [I10] 09/02/2019 Unspecified hypothyroidism [E03.9] 05/19/2014 Encounter for long-term (current) use of other *08/26/2008 08/12/2013 SUMMARY [V999.95] 08/10/2013 09/02/2019 Heart transplanted (HCC) [Z94.1] 08/10/2013 Abdominal pain [R10.9] 08/10/2013 05/19/2014 Depression [F32.A] 08/10/2013 08/12/2013 GERD (gastroesophageal reflux disease) [K21.9] 08/10/2013 08/12/2013 History of immunosuppression therapy [Z92.25] 08/11/2013 08/12/2013 Kidney stone [N20.0] 08/11/2013 05/06/2014 Depression [F32.A] 08/12/2013 Hypertension [I10] 08/12/2013 Hypothyroidism [E03.9] 08/12/2013 DVT prophylaxis [Z29.9] 08/17/2013 09/02/2019 Right lower quadrant pain [R10.31] 04/29/2014 09/02/2019 Diabetes mellitus, type II (HCC) [E11.9] 04/29/2014 DREW (acute kidney injury) (HCC) [N17.9] 05/06/2014 05/19/2014 Orthostasis [I95.1] 05/06/2014 05/19/2014 Gastroenteritis [K52.9] 05/18/2014 Right groin pain [R10.31] 05/18/2014 Diarrhea [R19.7] 11/29/2014 09/02/2019 Prophylactic immunotherapy [Z29.8] 11/29/2014 Pneumonia [J18.9] 11/29/2014 09/02/2019 Delirium [R41.0] 12/03/2014 09/02/2019 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] 12/03/2014 09/02/2019 DREW (acute kidney injury) (HCC) [N17.9] 12/03/2014 Anxiety disorder [F41.9] 07/05/2015 Pain [R52] 11/14/2017 09/02/2019 Encounter Status:Closed by SOY MCCANN on 08/16/22 Normal [facility] AMYLASEon 08-04-2022 Amylase [Catalytic activity/Vol] 155 U/L Critically high 25-115 [facility] Comment on above: Performed By: #### C MPABAD, BRITTNEY ####[facility] [address] [place] [address]DrLaura Rivera CBC AUTO DIFFon 08-04-2022 BASO # 0.0 103/ul Normal 0.0-0.1 [facility] Comment on above: Performed By: #### C BC ####[facility] [address] [place], [place] [address]DrLaura Rivera Basophils/100 WBC (Bld) 0.3 % Normal 0.2-2.0 [facility] Comment on above: Performed By: #### C BC ####[facility] [address] [place], [place] [address]DrLaura Rivera EO # 0.1 103/ul Normal 0.0-0.7 [facility] Comment on above: Performed By: #### C BC ####[facility] [address] [place], [place] [address]DrLaura Rivera Eosinophils/100 WBC (Bld) 1.2 % Normal 0.9-7.0 [facility] Comment on above: Performed By: #### C BC ####[facility] [address] [place], [place] [address]DrLaura Rivera Erythrocyte distribution width (RBC) [Ratio] 12.2 % Normal 11.0-15.0 [facility] Comment on above: Performed By: #### C BC ####[facility] [address] [place], [place] [address]DrLaura Rivera Hematocrit (Bld) [Volume fraction] 38.3 % Normal 36.0-48.0 [facility] Comment on above: Performed By: #### C BC ####[facility] [address] [place], [place] [address]Dr. Hardeep Rivera Hemoglobin (Bld) [Mass/Vol] 12.9 g/dL Normal 12.0-16.0 [facility] Comment on above: Performed By: #### C BC ####[facility] [address] [place] [address]Dr. Hardeep Rivera IG # 0.02 10e3/ul Normal 0.00-0.03 [facility] Comment on above: Performed By: #### C BC ####[facility] [address] [place] [address]Dr. Hardeep Rivera IG % 0.3 % Normal 0.0-0.5 [facility] Comment on above: Performed By: #### C BC ####[facility] [address] [place], [place] [address]Dr. Hardeep Rivera LYMPH # 1.1 103/ul Critically low 1.2-3.8 [facility] Comment on above: Performed By: #### C BC ####[facility] [address] [place], [place] [address]Dr. Hardeep Rivera Lymphocytes/100 WBC (Bld) 16.6 % Critically low 20.5-60.0 [facility] Comment on above: Performed By: #### C BC ####[facility] [address] [place], [place] [address]Dr. Hardeep Rivera MANUAL DIFF REQ NO Normal [facility] Comment on above: Performed By: #### C BC ####[facility] [address] [place], [place] [address]Dr. Hardeep Rivera MCH (RBC) [Entitic mass] 29.7 pg Normal 26.7-34.0 [facility] Comment on above: Performed By: #### C BC ####[facility] [address] [place], [place] [address]Dr. Hardeep Rivera MCHC (RBC) [Mass/Vol] 33.7 g/dL Normal 29.9-35.2 [facility] Comment on above: Performed By: #### C BC ####[facility] [address] [place], [place] [address]Dr. Hardeep Rivera MCV (RBC) [Entitic vol] 88.2 fL Normal 81.0-99.0 [facility] Comment on above: Performed By: #### C BC ####[facility] [address] [place] [address]Dr. Hardeep Rivera MONO # 0.7 103/ul Normal 0.3-0.8 [facility] Comment on above: Performed By: #### C BC ####[facility] [address] [place], [place] [address]Dr. Hardeep Rivera Monocytes/100 WBC (Bld) 11.1 % Normal 1.7-12.0 [facility] Comment on above: Performed By: #### C BC ####[facility] [address] [place], [place] [address]Dr. Hardeep Rivera NEUT # 4.6 103/ul Normal 1.4-6.5 [facility] Comment on above: Performed By: #### C BC ####[facility] [address] [place], [place] [address]Dr. Hardeep Rivera Neutrophils/100 WBC (Bld) 70.5 % Normal 43.0-75.0 [facility] Comment on above: Performed By: #### C BC ####[facility] [address] [place], [place] [address]Dr. Hardeep Rivera Platelet mean volume (Bld) [Entitic vol] 9.4 fL Critically low 9.5-13.5 [facility] Comment on above: Performed By: #### C BC ####[facility] [address] [place], [place] [address]Dr. Hardeep Miguel PLT 203 103/ul Normal 150-450 [facility] Comment on above: Performed By: #### C BC ####[facility] [address] [place], [place] [address]Dr. Hardeep Miguel RBC 4.34 106/ul Normal 4.20-5.40 [facility] Comment on above: Performed By: #### C BC ####[facility] [address] [place], [place] [address]Dr. Hardeep Rivera WBC 6.5 103/ul Normal 4.0-11.0 [facility] Comment on above: Performed By: #### C ####[facility] [address] [place], [place] [address]Ks. Hardeep Rivera CT ABD/PELVIS WO CONon 08-04 CT ABD/PELVIS WO CON TECHNIQUE: CT abdom en and pelvis. Helically acquired axial images of the abdomen and pelvis from the diaphragm to the iliac crest and the iliac crest to the symphysis pubis. Sagittal and coronal multiplanar reconstructions. . HISTORY: Diarrhea COMPARISON: CT abdomen/pelvis dated 02/18/2022 FINDINGS: Stable appearing irregular nodular density/nodular scarring is seen in the left lung base. Mild posterior left lung base pleural thickening is seen with small pleural calcification. Stable mild cardiomegaly is seen. Patient is post cholecystectomy. Surgical clips are seen in the gallbladder fossa. Mild peripheral splenic calcification is again seen. 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 The liver, pancreas and bilateral adrenal glands appear unremarkable on this noncontrast examination. Right renal caliectasis and pelviectasis is again seen with normal caliber right ureter, which can be seen with right UPJ obstruction. No intrarenal calculus is seen in the right kidney. Punctate calculus is seen in the inferior pole of the left kidney. No left hydronephrosis is seen. No left ureteral calculus is seen. Multiple mild high density structures are seen about the left kidney, with the largest seen in the lower pole, measuring 18 mm, which can be better characterized with renal ultrasound or renal MRI with and without contrast. The urinary bladder appears unremarkable. The stomach and duodenum appear unremarkable. Normal-appearing appendix is visualized. Large volume of stool is seen in the colon. No significant bowel wall thickening is seen. Sigmoid and rectosigmoid diverticula are seen without significant associated inflammatory changes. Aortic and iliac arterial calcification is seen without aneurysmal dilatation. Multiple retroperitoneal lymph nodes are seen measuring up to 1 cm in short axis. Multiple mesenteric lymph nodes are also seen in the lower abdomen measuring up to 1 cm. This findings appear slightly enlarged in size and number compared with prior examination. No significant free fluid or abnormal fluid collection is seen in the abdomen and pelvis. The abdominal wall and visualized soft tissues appear unremarkable. Mild multilevel degenerative changes of the visualized thoracolumbar spine is seen. IMPRESSION: No evidence for acute abnormality. Large volume of stool seen in the colon. Sigmoid and rectosigmoid colonic diverticulosis without CT evidence for diverticulitis. Punctate nonobstructive left nephrolithiasis. Multiple mild high density structures are seen about the left kidney, with the largest seen in the lower pole, measuring 18 mm, which can be better characterized with renal ultrasound or renal MRI with and without contrast. Multiple retroperitoneal lymph nodes are seen measuring up to 1 cm in short axis. Multiple mesenteric lymph nodes are also seen in the lower abdomen measuring up to 1 cm. This findings appear slightly enlarged in size and number compared with prior examination. Electronically authenticated by: ALEXSANDER HARDING Date: 2022-08-04 20:12 Normal [facility] SARS-CoV-2 (COVID-19) RNA ULICES+probe Ql (Unsp spec) Not detected Normal NOT DETECTED [facility] Comment on above: Result Comment: When diagnostic testing is negative, the possibility of a false negative should be considered in the context of a patient's recent exposures and the presence of clinical signs and symptoms consistent with SARS-CoV-2. This test is not yet approved or cleared by the [place] FDA. When there are no FDA-approved or cleared tests available, and other criteria are met, FDA can make tests available under an emergency access mechanism called an Emergency Use Authorization (EUA). The EUA for this test is supported by the [place] of Health and Human Service's declaration that circumstances exist to justify the emergency use of in vitro diagnostics for the detection and/or diagnosis of the virus that causes COVID-19. This EUA will remain in effect for the duration of the COVID-19 declaration justifying emergency of IVDs, unless it is terminated or revoked by the FDA (after which the test may no longer be used). Performed By: #### C VDTBH ####[facility] [address] [place], [place] [address]MsDr. Hardeep CASILLAS URINE PROFILEon 2 Bilirubin Ql (U) Negative Normal NEGATIVE [facility] Comment on above: Performed By: #### E RUR #### [facility] [address] [place], [place] [address] Dr. Yilan Rivera Clarity (U) CLEAR Normal CLEAR [facility] Comment on above: Performed By: #### E RUR #### [facility] [address] [place] [address] Dr. Hardeep Rivera Color (U) LT. YELLOW Normal YELLOW [facility] Comment on above: Performed By: #### E RUR #### [facility] [address] [place] [address] Dr. Hardeep FRANCIS A micrscopic examination will be performed if indicated. Normal [facility] Comment on above: Performed By: #### E RUR #### [facility] [address] [place] [address] Dr. Hardeep Rivera Glucose Ql (U) Negative Normal NEGATIVE [facility] Comment on above: Performed By: #### E RUR #### [facility] [address] [place] [address] Dr. Hardeep Rivera Hemoglobin Ql (U) Negative Normal NEGATIVE [facility] Comment on above: Performed By: #### E RUR #### [facility] [address] [place] [address] Dr. Hardeep Rivera Ketones Ql (U) Negative Normal NEGATIVE [facility] Comment on above: Performed By: #### E RUR #### [facility] [address] [place] [address] Dr. Hardeep Rivera LEUKOCYTES Negative Normal NEGATIVE [facility] Comment on above: Performed By: #### E RUR #### [facility] [address] [place] [address] Dr. Hardeep Rivera Nitrite Ql (U) Negative Normal NEGATIVE [facility] Comment on above: Performed By: #### E RUR #### [facility] [address] [place] [address] Dr. Hardeep Rivera pH (U) 7.0 [pH] Normal 5-9 [facility] Comment on above: Performed By: #### E RUR #### [facility] [address] [place] [address] Dr. Hardeep Rivera SPEC GRAVITY <=1.005 Abnormal 1.005-<=1.02 5 [facility] Comment on above: Performed By: #### E RUR #### [facility] [address] [address] [address] Hardeep Rivera UA PROTEIN Negative Normal NEGATIVE/ TRACE [facility] Comment on above: Performed By: #### E RUR #### [facility] [address] [address] [address] Hardeep Rivera UR MICRO IND NOT INDICATED Normal [facility] Comment on above: Performed By: #### E RUR #### [facility] [address] [address] [address] Hardeep Rivera Urobilinogen Qn (U) 0.2 {Kevon'U}/dL Normal 0.2 - 1. 0 [facility] Comment on above: Performed By: #### E RUR #### [facility] [address] [place] [address] Dr. Hardeep Rivera LIPASEon 08-04-2022 Lipase [Catalytic activity/Vol] 1486.0 U/L Critically high 73.0-393.0 [facility] Comment on above: Performed By: #### C ABAD MORE, BRITTNEY ####[facility] [facility] Jsguuck[address] [place], [place] [address]DrLaura Rivera PROF 14(COMP METB)on 022 Albumin [Mass/Vol] 3.6 g/dL Normal 3.4-5.0 [facility] Comment on above: Performed By: #### C ARGENIS LIPJhony, BRITTNEY ####[facility] [address] [place] [address]DrLaura Rivera Albumin/Globulin [Mass ratio] 1.3 {ratio} Normal [facility] Comment on above: Performed By: #### C DERRELL MOREA, BRITTNEY ####[facility] [address] [place] [address]DrLaura Rivera ALP [Catalytic activity/Vol] 171 U/L Critically high 46-116 [facility] Comment on above: Performed By: #### C ARGENIS LIPA, BRITTNEY ####[facility] [address]tothzix[address] [place] [address]Dr. Hardeep Rivera ALT [Catalytic activity/Vol] 35 U/L Normal 14-59 [facility] Comment on above: Performed By: #### C ABAD MORE, BRITTNEY ####[facility] T[address]qi[address] [place], [place] [address]Dr. Hardeep Rivera Anion gap [Moles/Vol] 11.4 mmol/L Normal [facility] Comment on above: Performed By: #### C ARGENIS LIPA, BRITTNEY ####[facility] Qashqdyxed[address] [place], [place] [address]Dr. Hardeep Rivera AST [Catalytic activity/Vol] 28 U/L Normal 15-37 [facility] Comment on above: Performed By: #### C ARGENIS LIPA, BRITTNEY ####[facility] Xmizeuptkb[address] [place], [place] [address]Dr. Hardeep Rivera Bilirubin [Mass/Vol] 0.7 mg/dL Normal 0.2-1.0 [facility] Comment on above: Performed By: #### C ARGENIS LIPA, BRITTNEY ####[facility] Oklsfteqen[address] [place], [place] [address]Dr. Hardeep Rivera Calcium [Mass/Vol] 8.4 mg/dL Critically low 8.5-10.1 [facility] Comment on above: Performed By: #### C ARGENIS LIPA, BRITTNEY ####[facility] Ldlwcwooym[address] [place], [place] [address]Dr. Hardeep Rivera Chloride [Moles/Vol] 100 mmol/L Normal 98-107 [facility] Comment on above: Performed By: #### C ARGENIS LIPA, BRITTNEY ####[facility] Cy[address]sl[address] [place], [place] [address]Dr. Hardeep Rivera CO2 [Moles/Vol] 25.6 mmol/L Normal 21.0-32.0 [facility] Comment on above: Performed By: #### C MP, LIPA, BRITTNEY ####[facility] Xlldseolrg[address] [place], [place] [address]Dr. Hardeep Rivera Creatinine [Mass/Vol] 1.33 mg/dL Critically high 0.55-1.02 [facility] Comment on above: Performed By: #### C ARGENIS LIPA, BRITTNEY ####[facility] [address] [place] [address]Dr. Hardeep Rivera EGFR-AF ZIMBABWEAN 47 mL/min/1.73m2 Critically low >=60 [facility] Comment on above: Performed By: #### C ARGENIS LIPA, BRITTNEY ####[facility] [address]heijpe[address] [place] [address]Dr. Hardeep Rivera EGFR-NON AF ZIMBABWEAN 39 mL/min/1.73m2 Critically low >=60 [facility] Comment on above: Performed By: #### C ARGENIS LIPA, BRITTNEY ####[facility] Aupnxlxrii[address] [place], [place] [address]Dr. Hardeep Rivera Globulin (S) [Mass/Vol] 2.7 g/dL Normal [facility] Comment on above: Performed By: #### C ARGENIS LIPA, BRITTNEY ####[facility] Apisuzubyp[address] [place], [place] [address]Dr. Hardeep Rivera Glucose [Mass/Vol] 108 mg/dL Critically high 74-106 [facility] Comment on above: Performed By: #### C DERRELL MOREA, BRITTNEY ####[facility] Yjohuyanuf[address] [place], [place] [address]Dr. Hardeep Rivera Potassium [Moles/Vol] 4.0 mmol/L Normal 3.5-5.1 [facility] Comment on above: Performed By: #### C ARGENIS LIPA, BRITTNEY ####[facility] Gburkenlkn[address] [place], [place] [address]Dr. Hardeep Rivera Protein [Mass/Vol] 6.3 g/dL Critically low 6.4-8.2 [facility] Comment on above: Performed By: #### C ARGENIS LIPA, BRITTNEY ####[facility] Jpbeszwbff[address] [place], [place] [address]Dr. Hardeep Rivera Sodium [Moles/Vol] 133 mmol/L Critically low 136-145 [facility] Comment on above: Performed By: #### C ARGENIS LIPA, BRITTNEY ####[facility] [address] [place] [id number]. Hardeep Rivera Urea nitrogen [Mass/Vol] 23.0 mg/dL Critically high 7.0-18.0 [facility] Comment on above: Performed By: #### C ABAD MORE AMY ####[facility] [address] [place], [place] [address]WjLaura Rivera Urea nitrogen/Creatinine [Mass ratio] 17.3 mg/mg Normal [facility] Comment on above: Performed By: #### C ABAD MORE AMY ####[facility] [address] [place] [id number]. Hardeep Rivera Pre-Certification Formon Pre-Certification Form [id number] #1.00CD:127 Normal [facility] BOX TEST SENT OUTon 08-02-20 22 SENT TO REF LAB 08/02/2022 Normal [facility] Comment on above: Performed By: #### Deedee RUR #### [facility] [address] [place] [address] Dr. Hardeep Rivera CBC AUTO DIFFon 08-02-2022 BASO # 0.0 103/ul Normal 0.0-0.1 [facility] Comment on above: Performed By: #### HARI OLSONRO #### [facility] [address] [address] [address] Hardeep Rivera Basophils/100 WBC (Bld) 0.3 % Normal 0.2-2.0 [facility] Comment on above: Performed By: #### HARI OLSONRO #### [facility] [address] [address] [address] Hardeep Rivera EO # 0.1 103/ul Normal 0.0-0.7 [facility] Comment on above: Performed By: #### HARI OLSONRO #### [facility] [address] [place] [address] Dr. Hardeep Rivera Eosinophils/100 WBC (Bld) 1.4 % Normal 0.9-7.0 [facility] Comment on above: Performed By: #### RANDALL OLSON #### [facility] [address] [place] [address] Dr. Hardeep Rivera Erythrocyte distribution width (RBC) [Ratio] 12.2 % Normal 11.0-15.0 [facility] Comment on above: Performed By: #### RANDALL OLSON #### [facility] [address] [place] [address] Dr. Hardeep Rivera Hematocrit (Bld) [Volume fraction] 41.2 % Normal 36.0-48.0 [facility] Comment on above: Performed By: #### RANDALL OLSON #### [facility] [address] [place] [address] Dr. Hardeep Rivera Hemoglobin (Bld) [Mass/Vol] 13.6 g/dL Normal 12.0-16.0 [facility] Comment on above: Performed By: #### RANDALL OLSON #### [facility] [address] [place] [address] Dr. Hardeep Rivera IG # 0.02 10e3/ul Normal 0.00-0.03 [facility] Comment on above: Performed By: #### RANDALL OLSON #### [facility] [address] [place] [address] Dr. Hardeep Rivera IG % 0.3 % Normal 0.0-0.5 [facility] Comment on above: Performed By: #### RANDALL OLSON #### [facility] [address] [place] [address] Dr. Hardeep Rivera LYMPH # 0.6 103/ul Critically low 1.2-3.8 [facility] Comment on above: Performed By: #### RANDALL OLSON #### [facility] [address] [place] [address] Dr. Hardeep Rivera Lymphocytes/100 WBC (Bld) 8.9 % Critically low 20.5-60.0 [facility] Comment on above: Performed By: #### RANDALL OLSON #### [facility] [address] [place] [address] Dr. Hardeep Rivera MANUAL DIFF REQ NO Normal [facility] Comment on above: Performed By: #### E RUR, UMICRO #### [facility] [address] [place] [address] Dr. Hardeep Rivera MCH (RBC) [Entitic mass] 29.6 pg Normal 26.7-34.0 [facility] Comment on above: Performed By: #### E RUTrish, UMICRO #### [facility] [address] [place] [address] Dr. Hardeep Rivera MCHC (RBC) [Mass/Vol] 33.0 g/dL Normal 29.9-35.2 [facility] Comment on above: Performed By: #### E KATHRIN, UMICRO #### [facility] [address] [place] [address] Dr. Hardeep Rivera MCV (RBC) [Entitic vol] 89.8 fL Normal 81.0-99.0 [facility] Comment on above: Performed By: #### Deedee PINON, UMICRO #### [facility] [address] [place] [address] Dr. Hardeep Rivera MONO # 0.7 103/ul Normal 0.3-0.8 [facility] Comment on above: Performed By: #### Deedee PINON, UMICRO #### [facility] [address] [place] [address] Dr. Hardeep Rivera Monocytes/100 WBC (Bld) 11.6 % Normal 1.7-12.0 [facility] Comment on above: Performed By: #### Deedee PINON, UMICRO #### [facility] [address] [place] [address] Dr. Hardeep Rivera NEUT # 5.0 103/ul Normal 1.4-6.5 [facility] Comment on above: Performed By: #### E RUR, UMICRO #### [facility] [address] [place] [address] Dr. Hardeep Rivera Neutrophils/100 WBC (Bld) 77.5 % Critically high 43.0-75.0 [facility] Comment on above: Performed By: #### E KATHRIN, UMICRO #### [facility] [address] [address] [address] Hardeep Rivera Platelet mean volume (Bld) [Entitic vol] 9.4 fL Critically low 9.5-13.5 [facility] Comment on above: Performed By: #### Deedee PINON, UMICRO #### [facility] [address] [address] [address] Hardeep Rivera PLT 200 103/ul Normal 150-450 [facility] Comment on above: Performed By: #### Deedee IPNON, UMICRO #### [facility] [address] [place] [address] Dr. Hardeep Rivera RBC 4.59 106/ul Normal 4.20-5.40 [facility] Comment on above: Performed By: #### Deedee PINON, UMICRO #### [facility] [address] [place] [address] Dr. Hardeep Rivera WBC 6.4 103/ul Normal 4.0-11.0 [facility] Comment on above: Performed By: #### Deedee PINON, UMICRO #### [facility] [address] [place] [address] Dr. Hardeep Clark 08-02-2022 CNPN Telephone ([facility]) SYLVIA HERRERA ([id number]) 1945 F Date Time Provider Department 08/02/22 [facility] During your visit today, we recorded the following information about you: Linden Faustina 08/02/2022 1:42 PM Signed Patient had labs drawn 08/02/22, uploaded to scanned docs. Loida Mathias APRN.CNP 08/07/2022 10:27 AM Signed Received outside labs drawn 08/02 -- FK 4.7 Cr 1.4 BUN 21 K 3.9 FBS 119 WBC 6400 Hgb 13.6 Hct 41 Plts 200 My chart message sent to patient. Advised no changes. Asked that she keep us posted re: if she will be transferring her care. Loida Mathias APRN.GENERAL LABOR August 07, 2022 10:27 AM Allergies As of Date: 08/02/2022 Noted Allergy Reaction PERCOCET (OXYCODONE-ACETAMINOP HEN)05/18/2014 8 - GI Upset PHENERGAN (PROMETHAZINE HCL) 10/11/2005 14 - Other: See Comments Comments: hallucinations Date Reviewed: 09/02/2019 Reviewed by: Sandrita Guerrero - Fully Assessed Reason for Visit: Heart Transplant Follow Up [1020] Cmt: Labs Primary Visit Diagnosis:Heart replaced by transplant (HCC) [Z94.1 (ICD-10-CM)] [Z94.1] Prescriptions as of 08/07/2022 - mycophenolate mofetil (CELLCEPT) 250 mg capsule take 2 capsules by mouth every morning and 2 capsules every evening. Z94.1 heart replaced by transplant - tacrolimus IR (PROGRAF) 0.5 mg capsule Take 1 capsule by mouth once daily. 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 No Dr Don - amitriptyline (ELAVIL) 10 mg tablet Take 1 tablet by mouth daily at bedtime. - losartan (COZAAR) 100 mg tablet Take 1 tablet by mouth once daily. - magnesium oxide (MAG-OX) 400 mg (241.3 mg magnesium) tablet Take 1 tablet by mouth once daily. - clonazePAM (KLONOPIN) 0.5 mg tablet Take 2 tablets by mouth as needed for up to 180 days. - levothyroxine (SYNTHROID) 88 mcg tablet Take 1 tablet by mouth once daily. - buPROPion XL (WELLBUTRIN XL) 300 mg 24 hr tablet Take 1 tablet by mouth once daily. - simvastatin (ZOCOR) 20 mg tablet Take 1 tablet by mouth daily at bedtime. - Loperamide HCl (IMODIUM) 2 mg tab Take 2 mg by mouth three times daily. - kewkaf-ddmaaukd-hxeko se (CREON) 24,000-76,000 -120,000 unit cpDR Take 3 capsules by mouth three times daily with meals. TAKE 3 CAPSULES THREE TIMES A DAY WITH MEALS AND 1 CAPSULE IF HAVING A SNACK - pramipexole (MIRAPEX) 0.25 mg tablet Take 1 tablet by mouth daily at bedtime. - alendronate (FOSAMAX) 70 mg tablet Take 1 tablet by mouth once each week. in the morning with a full glass of water, on an empty stomach, and do not take anything else by mouth or lie down for the next 30 minutes. - acetaminophen 325 mg tablet Take 1-2 tablets by mouth every 4 hours as needed. - omega-3 fatty acids 1,000 mg cap Take 2 capsules by mouth once daily. - Cholecalciferol, Vitamin D3, (VITAMIN D) 1,000 unit Tab Take 1 tablet by mouth once daily. - aspirin(ECOTRIN LOW STRENGTH 81 MG TAB) Take one(1) tablet daily. - MULTIVITAMIN TAB Take one(1) tablet daily. 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 Heart replaced by transplant [Z94.1] 03/19/2006 08/12/2013 Chronic ethmoidal sinusitis [J32.2] 10/30/2007 08/12/2013 Unspecified essential hypertension [I10] 09/02/2019 Unspecified hypothyroidism [E03.9] 05/19/2014 Encounter for long-term (current) use of other *08/26/2008 08/12/2013 SUMMARY [V999.95] 08/10/2013 09/02/2019 Heart transplanted (HCC) [Z94.1] 08/10/2013 Abdominal pain [R10.9] 08/10/2013 05/19/2014 Depression [F32.A] 08/10/2013 08/12/2013 GERD (gastroesophageal reflux disease) [K21.9] 08/10/2013 08/12/2013 History of immunosuppression therapy [Z92.25] 08/11/2013 08/12/2013 Kidney stone [N20.0] 08/11/2013 05/06/2014 Depression [F32.A] 08/12/2013 Hypertension [I10] 08/12/2013 Hypothyroidism [E03.9] 08/12/2013 DVT prophylaxis [Z29.9] 08/17/2013 09/02/2019 Right lower quadrant pain [R10.31] 04/29/2014 09/02/2019 Diabetes mellitus, type II (HCC) [E11.9] 04/29/2014 DREW (acute kidney injury) (HCC) [N17.9] 05/06/2014 05/19/2014 Orthostasis [I95.1] 05/06/2014 05/19/2014 Gastroenteritis [K52.9] 05/18/2014 Right groin pain [R10.31] 05/18/2014 Diarrhea [R19.7] 11/29/2014 09/02/2019 Prophylactic immunotherapy [Z29.8] 11/29/2014 Pneumonia [J18.9] 11/29/2014 09/02/2019 Delirium [R41.0] 12/03/2014 09/02/2019 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 Hardeep Rivera Calcium [Mass/Vol] 8.6 mg/dL Normal 8.5-10.1 [facility] Comment on above: Performed By: #### RANDALL OLSON #### [facility] [id number] Hardeep Rivera Chloride [Moles/Vol] 98 mmol/L Normal 98-107 [facility] Comment on above: Performed By: #### RANDALL OLSON #### [facility] [address] [place] [address] Dr. Hardeep Rivera CO2 [Moles/Vol] 27.7 mmol/L Normal 21.0-32.0 [facility] Comment on above: Performed By: #### HARI OLSONRO #### [facility] [address] [place] [address] Dr. Hardeep Rivera Creatinine [Mass/Vol] 1.42 mg/dL Critically high 0.55-1.02 [facility] Comment on above: Performed By: #### HARI OLSONRO #### [facility] [address] [place] [address] Dr. Hardeep Rivera EGFR-AF ZIMBABWEAN 43 mL/min/1.73m2 Critically low >=60 [facility] Comment on above: Performed By: #### HARI OLSONRO #### [facility] [address] [place] [address] Dr. Hardeep Rivera EGFR-NON AF ZIMBABWEAN 36 mL/min/1.73m2 Critically low >=60 [facility] Comment on above: Performed By: #### RANDALL OLSON #### [facility] [address] [place] [address] Dr. Hardeep Rivera Glucose [Mass/Vol] 119 mg/dL Critically high 74-[address] [facility] Comment on above: Performed By: #### HARI OLSONRO #### [facility] [address] [place] [address] Dr. Hardeep Rivera Potassium [Moles/Vol] 3.9 mmol/L Normal 3.5-5.1 [facility] Comment on above: Performed By: #### HARI OLSONRO #### [facility] [address] [place] [address] Dr. Hardeep Rivera Sodium [Moles/Vol] 134 mmol/L Critically low 136-145 Th [facility] Comment on above: Performed By: #### HARI OLSONRO #### [facility] [address] [place], [place] [address] Dr. Hardeep Rivera Urea nitrogen [Mass/Vol] 21.0 mg/dL Critically high 7.0-18.0 [facility] Comment on above: Performed By: #### RANDALL OLSON #### [facility] [address] [place], [place] [address] Dr. Hardeep Rivera Urea nitrogen/Creatinine [Mass ratio] 14.8 mg/mg Normal [facility] Comment on above: Performed By: #### E RANDALL PINON #### [facility] [address] [place], [place] [address] Dr. Hardeep Rivera [facility] Tac[facility]imus (Bld) [Mass/Vol] 4.7 ng/mL Low 5.0-20.0 [facility] Comment on above: Order Comment: Speci men Type: BLOOD SPECIMENOrdering Facility: [facility] Address: , , Result Comment: Thes e reference ranges are provided as a general recommendation. Individualized target levels for a given patient will depend on many factors (including the type of organ transplant, time since transplantation, concurrent medications, and other clinical factors), and should be assessed by those health care providers experienced in the management of immunosuppression. Reference ranges and high/low indicator flags are provided as general guidelines only. The treating physician must determine appropriate target levels/dosing based on the specific clinical situation. Test performed by chemiluminescent immunoassay using [employer]. Performed By: #### 1 1253-2 ####[facility] LABCLIA [id number] [place] [address] [place] Giardia, Direct, EIAon 07-23 G. lamblia Ag IA Ql (Stl) Negative Invalid Interpretation Code Negative [facility] Comment on above: Result Comment: Perf ormed at: [facility] [address] [id number] PhD Sommer Davis Performed By: #### 4 [id number] ####[facility] [address] [place] [address] O & P EXAM, ROUTINE, REFLEXo n 07-23-2022 Ova and parasites identified Concentration Nom (Stl) Comment Invalid Interpretation Code [facility] Comment on above: Result Comment: No o va, cysts, or parasites seen. One negative specimen does not rule out the possibility of a parasitic infection. Performed at: [address] [id number] PhD Sommer Davis Performed By: #### 4 [id number] ####[address] [place] [address] O & P Exam, Routineon 2021 Ova and parasites identified LM Nom (Unsp spec) Final report Invalid Interpretation Code [facility] Comment on above: Result Comment: Thes e results were obtained using wet preparation(s) and trichrome stained smear. This test does not include testing for Cryptosporidium parvum, Cyclospora, or Microsporidia. Performed at: [address] [id number] PhD Sommer Davis Performed By: #### 4 [id number] ####[address] [place] [address] Consent for Procedure/Surger yon 07-19-2022 Consent for Procedure/Surgery [id number] #1.00CD:127 Normal [facility] CMV IgMon 07-18-2022 CMV IgM IA Qn <30.0 Invalid Interpretation Code 0.0-29.9 [facility] Comment on above: Result Comment: Nega tive <30.0 Equivocal 30.0 - 34.9 Positive >34.9 A positive result is generally indicative of acute infection, reactivation or persistent IgM production. Performed at: [address] [id number] PhD Sommer Davis Performed By: #### 1 [id number] ####[facility] [address] [place] [address] Coding Summary.on 07-18-2022 Coding Summary. CD:[id number]:[id number] G h0bWw+PGhlYWQ+YY2DOAJ mX49wtBRjwD4IH1qXRV6A QLQRMGTXUC0OQO4kvDM2G EarH3DjmiBv WaqylZYtAU80JCa2WQJ4p GbhJSsuiT6qoOOnR0t2Hx JtXJ96eB54RGswQHKvKlC 3LjZpbjsgbWFy U9qzStXulKRvQdi+PHRhY mxlIHdpZHRoPScxMDAlJy MsuJtdML6lNo0qWSZpQAI vbGxhcHNlOiBj g8baUJGiPOslBL9zrNejA 3PzqLI8PLAmz4s2Wl97tW I+TKPhKUL8eLsfYQsvx64 5LsGrs1htRZY9 sEFoYQzqPLQ6Y78gd5S8S XEnGRLrWQF9qHG0qK7xtC timogfZ6BiqMCuBbR1DTD 9gFUuvC6vnJbr qznpxS0yJeo+P37KSA7OQ VMJRH9DVue1E4AkKxvzdJ I+KY16NCJtET10oWOhyKM hd0iukSl5EvDw ABKpVZP8cSsoOZqtm4ZvT YIuE47yiYBeh2W7DKBjuM ctbVYdFoTawDR9cV6xPKl olbhdh3mhxpip Byruv3fdsv17aH99A59iL CnsJMZoKWM5CMAsAGUwoC mcnx0wuX7hOe2+QFwxb8q sp5fvyMy9PwAa PNWuisQbaNniCCV6c9RdZ q35R9IzsJkcq2ZcXmw2jp 17eCDzw7O1vQN0LOcqYEF pyT7tXMfnPpP9 GULwIzAbtP52zJEyPEqwS h9vuOiswJpeYP9yFKUsxa bsGAXeyC8dFYIftXUqoDy hUD8yGCKcpzew k597HaKaNKZ6HIHegTTfB 9FnqA1rDmTlFVRhGGFtK9 SqhABxWXngU119DAkpRsD 5KXZybxBjK6Ka MTXqxXqvBeZ0x3E0Cc2Sy 9AwiubnLPP3QSfkYJV8On P7ZfEyUtT1J9NkKau4XFY zvMcwUX4yL0Jv FDImgnefpmwpeWA7XLZvU RFgkP71bMJhRPbyWx8kg0 H4g392QZJvTLYioW69Cj9 udDogMTBwdCBU pP2wwuvog9rfditoTpZwK UXmCZq9ZXk0WNHivYtcYy MxQKH3AcZ7VUH4yTDluF6 pxCyrcqcwoV7o Oyc+K43dhQ6aGOZ3FLA4h gltQZZuyoJjNQ35SC93C8 RyPjwvdGFibGU+PGRpdiB fiHnvDK8vIbEk u5ywu6AaWPpkW2CqWEQlX UfcVlr6OEXaACJ1rMX4yX 8nXVLtFPntx2E7qBG2B4K bdbRtfs7uc9gq TLNwRAbuT50kuPFhk1H7P UBktLR4RQEywWdiAeEniD 93Oyc+MUFlcNcky6HwVyd gg8sfg3gicFc8 KbUiPXAnbrRdhKigWIY8e 9BjOa37C56rWKvlCEQnAK XbFEBqRGOotJzoby5mlS2 wIi8+PGNvbCB3 jLF5rK8rWDWvNfS8GCteR 326HyQlgWEbOrbft5tlb8 qhaFy6AyEwNCNthsFgtTg pNTH2o3PdVy54 N72yYDysFOCuUAQhWAAfQ ZIpyZrkti2daC3kFc5+PC 3bm1gqfr02nO58eEA+PHR tNAI4gOgiVQym PSNlcH2aGHnjHjX4TGXiR zQkmB95gJRqVQauJi5pnU sqnNliLO2jGTVbrpyaz97 0QjJre1asLEVd eNMoMAzfEKR4H02xp0R3I CGiKONjRYU3hTU6uN2meN lnbjogbGVmdDsgdmVydGl bSWagHJtgO178 IHRvcDsnPlBhdGllbnQgT wHzHCa6K7LdVme1LBRafC mfCO5jsSVuVQeyCi5blPk azGreFU8mWFZs ztpzn294RgIks5fhFPCdu OCrKKzrBRU2I55qs8M0CN TfNSQyASZ5gXO7bC4soEq nbjogbGVmdDsg zkLzgJxuAGsqVLmvV951K HRvcDsnPkJpcnRoIERhdG U4AD58XS86vGVpj7G5jXK 2P1UkZETgwfco xkldoPO6GHCdEEJvzK91X c5geZglAo7ySCLrAMJ7CR UcmIVmX9FppM2fQbVwUQO dYWHmA1AkzYIp IAukS931GZagHuJ7LICvf oViA7JvUJWveNoxMpM9r0 L5Bj6JS3F9PN13DX84aDN ba1X8sHW5J5Uq TQYhidtijblrsIS6XZRkZ YPvvD27Rm0vuWfsBf3qPM GwBSW4TSKsdEHcB9FwsG4 yOiAjMDAwMDAw T4SquQYnJKwhU195BOxjJ yW5OZQpffTtY6GwGSQmbD kzDvP2v6K2Qk6UZGg2FN7 8UJ28qQWey4Y0 rFS7X8InYBHnyknojjepe PJ0ESXnISPemC70Bh2ftI wiFy5tFQJwVFF9YFMknQS fJ4XsyB6jTaSi TUCmENJeS5BmhYZhTCnzJ 620TRqbRnS7OTAcrjIpS9 RiPNSjxYprBiT2j1T7Ad3 ATUEpSE34GXP4 [id number] GFibGU+PHRhYmxlIHdpZH RoPScxMDAlJyBzdHlsZT0 bFg4tOWFpMDZk uQxpuPAgRfShy2esLWRdN FblID2trYuwL3XjdIY8UH Hbn1w2Ro19T24uO7SlhLA +MZOzeHT3bBH1 pX7sPyLzGzF9WSrwQ308F vXfjWWvCukau8mej2pfoC z8LgQ5XIIkmgPyvGfgMDP 2m3PwHc19N65q IHdpZHRoPSIxNSUiIHZhb Vwddt8akW3gTp6+PGNvbC I9jKU6cK3bCnWdHrB2GQz cL777TpXxxQFi Fadpt1imu5uzeFf8KkKqG EIfewJnnHfeKTA2o3TjSy 20W3OtcCduq0QiFen0bx4 6xPQzd2X8jIL5 F2OgNDTymawpuPGjhCshH X7iHUGwrothRKIgfP7nLU PhI8o3ZlRaSxW2SNrcY9T fjdP6QPGiwHUp MHcwVLX3V14lp4A7IVDuR DLmNOX2mEA1yR3bgTzzgz ogbGVmdDsgdmVydGljYWw fGZynN166JZBx rMbfLJIccN4hVORjfRKps NtwRS9uMZXmwksvBjSJIy NPDYDYWRoWTBXTWD16FP8 3hTYhp5N2cYG4 J1WqPOFxcpsvpwqpoBF9A JRkYCYuyU04tDEfFXocQy 3wo7L4p570BEPsEMJfvV7 0Yd2btAuuXCVm jLWBcM3aoworb6osyklmI uIqTDIwSNp8FWb2WRZxcQ lvAgZxFJX5CyA6OGB2sGZ ijM3vhCfefeyo yU7uTah+PBFnFpQuNMs5H TwvdGQ+ZSMbXOM5rVsrHT dkKJAzjW0fLFSxD1l6RyA iQpI1DUhzB6Jy LUYrobnyAu84yG5rYcLzG iW9HBkhT4RsoqQ9CPKdzD SwTFtgBGS4I02gg7I4NGN iIMMmMVC9oTU9 dS1cfRkxjitewKQgvEwpm qRlmLciQKqvRMoqU720WU HdbKdaUrh5LEtgAGUwYW3 2ZH50kMKbo2H9 mTJ7U7IjXXOyluqxzgcqm BQ5RYLvJYYjzJ64bNPvJG tiJt3qw6B0g036ANAjGEG lnD01Wv2olLig TIRweJSMxY8uwumwh2vqm cpoTwUuIOYkMBm3DUo4VC MyvZlnNiTeCSW8XyJ9VMQ 6lZCaiU7ogOkd mgvmnW6wNxv+RmVtYWxlP E00CF38hWMta3J3lQY8S1 FlADJeifnejglflJC2ANE pQQSuaN16nFWn UCfaIh0qg4G8x987KWUtZ XNvxD94Mm4ezRjtCOTvfI AQuI4zclbgd6kevtsdUsE gQJJzMEa0JOi3 ITZmbQgmLsDaADC8PoK8Q RW0yIOmmV5lgAfvxfmenW 9wOyc+Y1B3uZN1tYRmgJn vdGQ+GO92zx97 Z8RbZlqlFkw1QUTzRIP7l PY8mP2lVUYrLHbtz3E4yV N5V7SfsuGdwd8be1iyONB lGMjkR86maEUj h9A1RNHlvXC2ZCNboVljJ kAfeJ16Mvc+PGNvbGdyb3 QlVrkvs7zqd2saqAg5IsK wJSIgdmFsaWdu EVT4p7KaJx18C77gNNkrY HRoPSIzMCUiIHZhbGlnbj 9gjW3yUq4+UFLytRJ8jDB 2pL6cWxWgMgU1 GJgrI800CpDccBLnFulqb 7bqo5xirPw2JcRqNVSepq FscYrcAYP5f5FdOr91C2W ifGkue9LkHpg3 mn71fYKwq4R1pPE6Z5JtZ VMokolkiENcoFlvRX4rCJ JcikdwYWOdoN0bVTEqR9i 9JhMlTwX2POvs O8SdgjO3ZCBavWRrSCEcq IKCgV3tjqnra9ypbaudKx GdECMlLNc4ECi7XUElaIt bWzOoLAL6YdL6 UKC9dWJssR6dsSeijbtmh G9wOyc+YLq6j4dzjPFqAJ 8ggUI4OT07YB49tEPmn4I 5dAM7J9YcBHWz bnouxuoehQR1NJVxTPSgr N08Tq9mpOvuNa0mNKWuXU O8MCSmrOZxL1YivJ9uRyM tZJEvMPQiB1Ye sMWoWEpkD096PSuaReK7D MAnnuIwZ4OfEXBiaTprCp N5e0O8Sk6VVB31HO87OD1 8fAVeb2H6xMC7 Z2YwDXLyreqqzkwylFV9X MUzIMGtoA47Vq8esPuqGu 3nFAVaAYF2DARqbOEjM2I ywI7rKpYtAFIs JCNxO7JcyKAmEHkxE962T HgzHpT7JBNomnUqM7OqHW AapBafSkR4z7C0Hv8KXu7 0JS93ZD93qXYq f5X6lEH9C0PkCNDymlcsz mlcfQH1ITTzASCikR13Ot 9gsTwtNr5pLUYkSZU8NVE roPWbG4ScrC8n TqTlOZOoRSGgW1MtcTKgE RrjS684HBjdIsF0KITcnb LnB3BuRWOvlWvsTvZ2o2K 5Db9TETlnueq2 M6CdGhvgbVE+VN29UXKuW X54vYVocDIbq3vhuNj7Vt LkGOSfEPZ4hBqaTCuqi1G aWQHyF29dmQHy c2U6 (more content not included)... Normal [facility] Coding Summary. [id number] G h0bWw+PGhlYWQ+SE1LZUY oX56frAIgjB2GJ9mOBV5J FZVFACJOYF4APW9ecZB3X SezN1KvigVc UjxucTHoHD00HJk1OBP5x KrnCMksiR7siQToC4m9Ld ViDZ56pS43FNgiSOEfCbC 3LjZpbjsgbWFy I4hkFsNslTBfDwa+PHRhY mxlIHdpZHRoPScxMDAlJy InkPpfTF9qHt0gVDVlYZY vbGxhcHNlOiBj q6clBWMqSZkaDX9bjXgtW 1YkxUB4XQZgs9z7Wx14kM I+PIVcOIA1mKlePKboc07 4MeEwi8pbFYL8 lOZmZWkrUAE7L42rj2T6O CDoCPApPLI6wLI3sQ1rbW jfmlyxL7QmhMWgTdJ5ZYE 4dTDykR3hbOnf drtyhB7xClo+Z90YFU1FS PAJOM7LFnb4S0MeXqbkcH I+NP26ZVDdUK38wEWyqYE tf4rnqPf6WrRl YKZbJZZ4eCawZTewd1BhT EKtQ43bdLNlv2G1HBMbsR akmENxSeIbnBL2dF9dYBq gflebu2uaaujg Bnpqk5oczq95bH96Q82yX DzxGZHsTTK2BCCxXNFdeB rmsa4vgU5vWx0+MPwrt0p aa6aksTe5GaVi VCBvcuDblQniTZN1t6BbD o95J0MelFdlz6IzEnt3nx 97tMUcd5N0mYK0BOdcJVR ctR3vNCkoYbU1 SOGwByOpzJ79qFCbARxnZ z1zrXaqaNheSY9pJJOhak eqVIEabZ3aPEIngAVoaVr aAU4fBFRbmcyf k004LlHaBZU7FYVdcXLmL 4OnmM9cIbLwLMQwMLOiN2 ExcODdRFgdW483AAjtZqW 9HZManvTyK6Op DXHwfBlkAiI9s4O3Qs3Fy 2RtjqiqSPC9MDxaMUO3Ll Z9WnMcHsZ4E5WqGbq6IVC mpEjtMW0iS8Ef YOWzlpgjurufqAQ8MMEkM XKenL92zJVgXWlpDe4he2 D9s371VFOpTERzsM87Er2 udDogMTBwdCBU kI7kqnpgy5gogyxtCfKlO DHiYPf6MOg5MVTddOdqDz YgMZO7JwB9QHD2yTGnwM6 rbWiexunhnQ2u Oyc+D26wzQ4rAEH3EOB5w bjjFUOqhgQiHN46BE32Z0 RyPjwvdGFibGU+PGRpdiB cjBwvWH1bLiCj m4vyz9EsAXwvW1RlKSLmU GjzElo8EIGpKPN5mYY3fA 1tXBZcLIqmb6P7aPB9N0M igxBqbm4lh6hf EGCpWFzoV01bzCXpv5W2C PGerUA0DLHnkMwdKtFwsU 93Oyc+KHUrbZgnf5SkVyw ea1wao8kejBi5 JsCvCNXsoqMfiVmjMMK1d 5TaIa34L44jMTcpYNWdNR RdKJVsBLVboXwzga4hxA8 wIi8+PGNvbCB3 dAF6lM8nZCWqGgU9GMcnL 741ReKbaYHtFxcqr9myy4 cnyHj9TyFgDIJppeUwkHq oQEA5f0HzWb47 U68bEHowBYNaAWLhBEZkB WZwzYcipr4owX5oBl4+PC 4qq2oxfs01tD63vAE+PHR fNRR3iJfxQVqh GYIaoR6vQAiuAyR3RTSfV xEslR66iLArLGdpXf3coH whnPxbXJ7fICLadbaro67 4KxZno9jaBBIr fLAjXImxAKJ4M49qj0D6P RWdFAQbLWR2fVH3cL8ujH lnbjogbGVmdDsgdmVydGl aLHwrSJehF700 IHRvcDsnPlBhdGllbnQgT eStXDo2Z8VtYvn1DSNwfC szPC8jcKArXUelIu0quYz mgFcbNJ8wAKIt xxjfq486KgQfu9mfFBMpm SGxCBaeNFP9B17tt2W3YU BzTYXjSUI8oDG6nB6ydUx nbjogbGVmdDsg rcPhsFquETuiZRcuG575R HRvcDsnPkJpcnRoIERhdG C6YX47TK22uDWra9S2nEI 0H4XvCBJwqzaa mrkarFB0XDMxDSPciU48J o1cnCnkFu2wVMXlNZQ3XH WcxZDhY8RigT3iMoOyMBV dJWRuJ5AwfPMb YGrdY483OKlbYpC5OTMbq kJwY5VqRFYwoEwhOcA3t0 R4It1BV2L5FX70RH18vDL qx0C0jKY1E6Ja DCMypxyobeuvhWF5WWObL ZXoxO48Mg3jgQeyFc7vFS QxJVG4OYBjzJBoQ0OicO2 yOiAjMDAwMDAw V3XttRPiIMwkH813LBxxE cK0RNAozkNlP8GqRFNzpO gwCdE1m2C0Wf7CTXm6KM3 1OK33qITyq7L7 vAD0E9IkMHDtqcywvgabw TV1PJMsSFOywD84Yh5xfG asVd9lGRRqATV5CPFyhDU yG4JrsU5cAcEs TCEjSEAmV8DcmETcVZdgB 566GRllRlZ3WZJgtiAcL0 WzGUBcoXjcAhD4a8S3Dh4 GHLIkUY33LNO4 gYF7HW23EV32C3DuEslhj GFibGU+PHRhYmxlIHdpZH RoPScxMDAlJyBzdHlsZT0 jDs1vAMQbPCGp oFkpyAGnRmDer6uoSTXeL BhmLE7qfEgiS4MjgLC0VC Pnw5q3Eh62E55nP0VkyCA +MWYdmIX2xLY7 rW2pYqFhIsX1UDnmL545S dXklOYmQkcox8doy2eocP k9UsZ4NIUobbLllGvrFGX 9z7RbWv21M46i IHdpZHRoPSIxNSUiIHZhb Tjikx5ljW2nGj2+PGNvbC H4tFW0kA7vPsKyZeD9KCj oQ967BePcnFHk Glmhk3wsy8iquBp9MnGlX MBkteQciSxzEMU2t4QpSn 57H5JdwEkak6XbTbr6tu1 2yKAqp6U7tGQ3 O7LsLYJieavduXVcfJkqR B8oLHJaclzcUZPvdO6mOD IbH1n6QdDvMeU8QXakL3E lasI9OAYnyHUo KCooZIN2T73jr7E4DIFjU AKfAFH6rDM9xL2tbKmznu ogbGVmdDsgdmVydGljYWw eMEsiB517XSIg ePgdSOUzuH3zXUDdgOKrm LkuQQ5gGNDlulgoZlHGYl VTFQZVZGoNSPCNAE08TY1 7iRMxl7X3oDB1 S7JrAVUgdiovcfblgVZ8D OJvRDSzsU84uDNoYGnmTl 2di4O0u069BZHfTORkpL1 5Ud6mwSidIGTm kWFHwY1koeule7bhqiulN qEiQESpLBc3OAl6HSRafZ phViBgDZZ0SrT6XPL9yZR rhG1htVkrenpo cQ6cZqo+ZVIhRtTdNJs8P TwvdGQ+DFMpFHL3mMmgHQ tvZONokK7uWTGbF2w8LoQ qBeI0SLjyB1Zq PXCrcobvKm93qI0jPwFeQ vG9XMqjQ9OilxF5ZPOlwQ PxXOpoNAU8C65bc3A2ABQ oJHSrKQY8yLE7 vQ2yvUbfemnipBRytWxsx bKpiDjhAScgUPdbV829RE CslJfiVhd7LRjdATOaVH4 2BA66wHYpg1U2 sUX1V9DtYCYreafzjrrwz AF2TTLiSEJphF81oRGvDM xpAn0hs1D5r544EIXaSCU mxZ60Ww7hxOvh DZRydOAEfP6metnjx9nzv wpsIcZkRGIrTJg0WPl1CG XhnUhrKpJsMZC8EiR1OXM 4nDQtkK7dnAys svxpxH9aOqk+RmVtYWxlP B40NN38mGNvi3W6mMF6P2 XzMCVqadiawxzsqHJ8BAR iCUXqiD32kJOs ORwnNg0pg2D9x475BWCfO QRbeT40Zz8hjXgySKRorS BGgG5sransu3kpqoifUiN uXOCfBSf0VQr0 JJXyqDimVdCvZJS3McB2L CO5wZUmuM4owAuwxdgkdA 9wOyc+ZSGhNPQbr1Zvs2T nGE22OI07Z7Ye PjwvdGFibGU+PHRhYmxlI HdpZHRoPScxMDAlJyBzdH msVH4bFt7eETFsPZOxbMj mtHQuKnQso7ou CJNpJXbtHG1vpHrsL4Wev RB0BMZfz4p2Gu81U86iF8 JvdXA+BOFfuZT1dQY7pZ4 mGwUuVsW0DUuj G978TmNpsNIdHmwon4thp 8fqiBh0VqBnXDKzuiPsdQ axWFI1j6ZqAg29Z35zXIm pZHRoPSIyMCUi TXImqAhdix3ueT4aKy3+P WWpePP0bWY4cA1eTpUnOa I5FTzaJ331RgShgIIlAqm gN19pL7PgaXO+ PBNhDhv2EYDkaZpfJS1fg BXjEZywNr8uKUV5IuTdJx JvENfeQ3ImDQJbouamuoe tgXD1JTCyRFPi iV76Sv1adPpxZc0iSRNvI TG7BIMzdOLvJ1OrqA6mJd DsFVVsKVLcQ7ArpJBeISg sA176PJrhMvZ7 UBDbvhFcV0WaGUCnhBedX xN0t1F3Jm1TjRzfyMRiLV 1iJyJlHYt7O9YfTeu4CMB tfSbgFK7ntBFg VQkfAj6isNgzrLmdHV2uY BKfdzxqi179UcUxf0zfUC TyyMAuGWhgOIX2Y53lu5M 1LOMtQAUdQBX3 wHU5iD1mbYggdsldiWYnr DsgdmVydGljYWwtYWxpZ2 21MYQxtJunMdUXZhu8O1H mXzv2DHAvpJsl ZR3naVZdPZwhCt2qcBudw NpzQM6vBUWgryhty631Fz Lya0nbNIHrgQKfCNjkVCJ 6N97ni7B0YHAy ZDHgIEQ4aGM1zA5ckLiwz jogbGVmdDsgdmVydGljYW bgFLbdE209AHEmfStcQo0 UGqh3V4FnXks5 BDDfaNxnHD8oaVEcVIdtI l6ypRqpiLlzZA8pOCEtpi yrr199QpSjm3hoAHKxpGE kBVxhWDH3P81m r5U6CFWuHGVtUFU0jTE6e W4lpOtlwfpegLYoyKskuj LvlXuvNFhoPNtlV956FSQ vcDsnPlBheWVy OjwvdGQ+RZ35vf12U9SlG yqkUhn6JGLsTJN5hDF3rC 9aCNLbNWtjy8Q7hXD9V0F uspYfiu2gt4kh YXBz (more content not included)... Normal [facility] Enteric Panel by PCRon 07-18 C. coli+jejuni+upsaliensi s DNA ULICES+non-probe Ql (Stl) Not detected Normal [facility] Comment on above: Result Comment: Test ing was performed utilizing reverse operation shift supervisor (RT), polymerase chain reaction (PCR), and array hybridization to detect specific gastrointestinal microbial nucleic acid gene sequences associated with the following pathogenic bacteria and viruses:Campylobacter Group (composed of C. coli, C. jejuni, and C. rayray), Salmonella species, Shigella species (including S. dysenteriae, S. boydii, S. sonnei and S. flexneri), Vibrio Group (composed of V. cholera and V. parahaemolyticus), Yersinia enterocolitica, Norovirus GI/GII, and Rotavirus A. In addition, EPdetects Shiga toxin 1 gene and Shiga toxin 2 gene virulence markers. Shiga toxin producing E. coli (STEC) typically harbor one or both genes that encode for Shiga toxins 1 and 2. Campylobacter group, Salmonella species, Shigella species, Vibrio group, Rotavirus A, Shiga Toxin 1, Shiga Toxin 2, Norovirus GI/GII, and Yersinia enterocolitica were tested by Verigene nulcleic acid test. Performed By: #### 4 [id number], [id number], [id number], [id number], [id number], [id number] ####[facility] [address] [place] [address] E. coli stx1+stx2 genes ULICES+non-probe Ql (Stl) Negative Normal [facility] Comment on above: Performed By: #### 4 [id number], [id number], [id number], [id number], [id number], [id number] ####[facility] [address] [place] [address] Enteric Panel by PCR Negative Normal [facility] Enteric Panel Intrl QC Pass Normal [facility] Comment on above: Result Comment: Test ing was performed utilizing reverse operation shift supervisor (RT), polymerase chain reaction (PCR), and array hybridization to detect specific gastrointestinal microbial nucleic acid gene sequences associated with the following pathogenic bacteria and viruses:Campylobacter Group (composed of C. coli, C. jejuni, and C. rayray), Salmonella species, Shigella species (including S. dysenteriae, S. boydii, S. sonnei and S. flexneri), Vibrio Group (composed of V. cholera and V. parahaemolyticus), Yersinia enterocolitica, Norovirus GI/GII, and Rotavirus A. In addition, EPdetects Shiga toxin 1 gene and Shiga toxin 2 gene virulence markers. Shiga toxin producing E. coli (STEC) typically harbor one or both genes that encode for Shiga toxins 1 and 2. Performed By: #### 4 [id number], [id number], [id number], [id number], [id number], [id number] ####[facility] [address] [place] [address] Norovirus genogroup I+II RNA ULICES+non-probe Ql (Stl) Detected Abnormal [facility] Comment on above: Result Comment: Resu lts Called To [facility] for Dr. Jama By [facility] And Read Back For Confirmation On 07/18/2022 08:49:23 EDT. Performed By: #### 4 [id number], [id number], [id number], [id number], [id number], [id number] ####[facility] [address] [place] [address] Rotavirus A RNA ULICES+non-probe Ql (Stl) Not detected Normal [facility] Comment on above: Performed By: #### 4 [id number], [id number], [id number], [id number], [id number], [id number] ####[facility] [address] [place] [address] S. enterica+bongori DNA ULICES+non-probe Ql (Stl) Not detected Normal [facility] Comment on above: Result Comment: This test result should be correlated with clinical presentations and medical history by a healthcare provider to determine its clinical significance. Performed By: #### 4 [id number], [id number], [id number], [id number], [id number], [id number] ####[address] [place] [address] Shigella species+EIEC invasion plasmid antigen H ipaH gene ULICES+non-probe Ql (Stl) Not detected Normal [facility] Comment on above: Performed By: #### 4 [id number], [id number], [id number], [id number], [id number], [id number] ####[facility] [address] [place] [address] V. cholerae+parahaemolyti cus+vulnificus DNA ULICES+non-probe Ql (Stl) Not detected Normal [facility] Comment on above: Performed By: #### 4 [id number], [id number], [id number], [id number], [id number], [id number] ####[address] [place] [address] Y. enterocolitica DNA ULICES+non-probe Ql (Stl) Not detected Normal [facility] Comment on above: Performed By: #### 4 [id number], [id number], [id number], [id number], [id number], [id number] ####[facility] [address] [place] [address] C. diff by PCRon 07-17-2022 Clostridium difficile by PCR see comment Invalid Interpretation Code [facility] Comment on above: Result Comment: Unab le to perform test due to consistency of stool.? C. difficile testing will be performed only on diarrheal (unformed) stool, unless ileus due to C. difficile is suspected. Reference: Clinical Practice Guidelines for Clostridium difficile Infection in Adults, Infection and Hospital Epidemiology April 2010, Vol. 31, No. 5. This test result should be correlated with clinical presentations and medical history by a healthcare provider to determine its clinical significance. Performed By: #### 4 [id number], [id number], [id number], [id number], [id number], [id number] ####[facility] [address] [place] [address] Fecal WBC Lactoferrinon 07-02 Fecal WBC Lactoferrin Positive Abnormal Negative [facility] Comment on above: Result Comment: The semi-quantitative detection of elevated levels of fecal lactoferrin is a marker for fecal leukocytes and an indication of intestinal inflammation. Performed By: #### 4 [id number], [id number], 79605024, [id number], 97603529, [id number] ####[facility] [address] [place] [address] Consent for Treatmenton 07-02 Consent for Treatment [id number]:127 Normal [facility] Gastroenterology Office/Clin ic Noteon 07-15-2022 Gastroenterology Office/Clinic Note Chief Complaint f/u ER- abd pain, diarrhea and vomiting HPI Staff This is a 76 year old female who presents today for a referral by Sue for abnormal radiology testing. Patient seen in [place] ER 01/2022 for complaints of diarrhea, abdominal pain and nausea.- CT and labs completed History of Present Illness Sylvia presents today for abdominal pain, diarrhea, and vomiting. She was recently seen in the [place] emergency room with abdominal pain, diarrhea, and vomiting. She notes that she had a heart transplant in [place] in 2017. Afterwards she experienced diarrhea which lasted for 18 weeks. She states that she had a stool test done to rule out C. difficile. She notes that currently she has had diarrhea for the last 2 months, up to 6 or 7 times per day. She has intermittent pain in her left upper quadrant and has vomited a few times. She states that she has lost a lot of weight. She is taking immunosuppressive treatment, although she denies any change in her immunosuppressive treatment before the diarrhea started. She is prescribed prednisone and tacrolimus. Her last tacrolimus level was checked approximately 1 week ago, which she was told was a little high. Her dose was decreased to once daily. There has been no improvement in the diarrhea since her dose was decreased. She was prescribed Creon 24 mg at [facility] in 2017, due to being diagnosed with a lesion on her pancreas. She was also told that her pancreatic enzymes were low. She reports that she takes 9 Creon per day, 3 with each meal, and is supposed to take 3 more Creon if she has a late night snack. She denies any liver issues or liver disease. Review of Systems PHQ Score Initial Depression Screen Score: 2 Constitutional: no fever, no chills, no sweats, no weakness Skin: no Jaundice, no rash, no lesions, no petechiae ENMT: no ear pain, no sore throat, no congestion, no hoarseness Respiratory: no shortness of breath, no cough, no orthopnea, no wheezing Cardiovascular: no chest pain, no palpitations, no edema Gastrointestinal: no constipation, no GI bleeding, no dysphagia, no bloating, no heartburn. Positive for nausea, vomiting, abdominal pain, and diarrhea. Genitourinary: no dysuria, no hematuria, no discharge, no pain Musculoskeletal: no back pain, no trauma Neurologic: no numbness, no sleeping problems Additional ROS info: Except as noted in the above Review of Systems and in the History of Present Illness all other systems have been reviewed and are negative or noncontributory. Physical Exam Vitals & Measurements HR: 70(Peripheral) RR: 16 BP: 160/88 HT: 158.0 cm HT: 158 cm WT: 53.2 kg WT: 53.2 kg BMI: 21.31 Constitutional: Appearance: well developed Skin: Inspection: no rashes, ulcers, icterus, or telangiectasias. Eyes: Conjunctivae/lids: normal conjunctivae and lids. ENMT: Hearing: within normal limits. Lips/Teeth/Gums: normal oral mucosa Neck: Neck: normal motion, central trachea Respiratory: Percussion: thorax normoresonant. Auscultation: normal breath sounds; no rubs, wheezes, rale or rhonchi. Cardiovascular: Auscultation: normal rhythm, S1 and S2; no rubs, murmurs or gallop. Peripheral: no edema Gastrointestinal/Abdo men: Abdomen: normal consistency and bowel sounds; no tenderness or masses. Liver/Spleen: normal size and consistency, not palpable. Rectal: deferred Musculoskeletal: Gait/station: normal gait Assessment/Plan 1. Chronic diarrhea (K52.9: Noninfective gastroenteritis and colitis, unspecified) The patient has chronic diarrhea that started at least 2 months ago. She has a history of pancreatic enzymes for which she is taking an optimal dose of pancreatic enzyme supplements. She has a history of heart transplant almost 16 to 17 years ago. She is on prednisone and tacrolimus. Her tacrolimus dose was recently adjusted down secondary to a slightly increased level. Her diarrhea is watery and severe. I will proceed with stool testing to rule out infectious etiology including enteric panel and C. difficile. We will also proceed with a colonoscopy to evaluate for CMV infection, microscopic colitis, ischemic colitis, and inflammatory bowel disease. 2. LUQ pain (R10.12: Left upper quadrant pain) The patient had a recent CT scan at [facility] that showed a small lesion in the pancreas that appears to be infarct versus hematoma. We will proceed with an EGD to rule out peptic ulcer disease. 3. Nausea and vomiting (R11.2: Nausea with vomiting, unspecified) We will proceed with a EGD to rule out peptic ulcer disease, esophagitis, and gastritis. 4. Pancreatic insufficiency (K86.89: Other specified diseases of pancreas) She is on an optimal dose of pancreatic enzymes around 75,000 international units with meals. 5. Hx of heart transplant (Z94.1: Heart transplant status) The patient is on prednisone and tacrolimus. We will proceed with a colonoscopy to rule out CMV given her immunosuppressive status. Her tacrolimus dose was recently adjusted by h (more content not included)... Normal [facility] Comment on above: Result Comment: Elec tronically Signed By: Giovanna Cuellar\.br\Date and Time Signed: 07/12/22 13:57 EDT\.br\Electronically Co-Signed By: Eddie JAMA MD\.br\Date and Time Co-Signed: 07/15/22 21:14 EDT Ambulatory Visit Summaryon 0 07-12-2022 Ambulatory Visit Summary SYLVIA HERRERA :1945 Visit Date:07/12/2022 Ambulatory Visit Instructions Your Diagnosis Chronic diarrhea LUQ pain Nausea and vomiting Pancreatic insufficiency Hx of heart transplant Pancreatic lesion Your Care Team Attending Physician - Eddie JAMA MD Primary Care Physician - DUYEN ROGERS CNP Referring Physician - DUYEN ROGERS CNP This Is Your Medications List Contact prescribing physician if questions or concerns alendronate (Fosamax 70 mg oral tablet) aspirin buPROPion ciprofloxacin (Cipro) clonazepam levothyroxine (Synthroid) losartan meclizine metoprolol mycophenolate mofetil (CellCept) pancrelipase (Creon) pramipexole predniSONE simvastatin tacrolimus Discharge Vitals Heart Rate (Peripheral) 70 Respiratory Rate 16 Blood Pressure 160/88 Height 158.0 cm Height 158 cm Weight 53.2 kg Weight 53.2 kg BMI 21.31 What to do next You Need to Complete the Following Clostridium difficile by PCR, Stool, Routine collect, 07/12/22, Order for future visit, Nurse collect, Chronic diarrhea, Not Required, Print Label By Order Location CMV Antibody IgM, Blood, Routine collect, 07/12/22, Order for future visit, Lab Collect, Chronic diarrhea, Not Required, Print Label By Order Location Enteric Panel by PCR, Stool, Routine collect, 07/12/22, Order for future visit, Nurse collect, Chronic diarrhea, Required & Missing, Print Label By Order Location Fecal WBC Lactoferrin, Stool, Routine collect, 07/12/22, Order for future visit, Nurse collect, Chronic diarrhea, Not Required, Print Label By Order Location Giardia lamblia, Direct Detection EIA, Stool, Routine collect, 07/12/22, Order for future visit, Nurse collect, Chronic diarrhea, Not Required, Print Label By Order Location O & P Exam, Routine, Stool, Routine collect, 07/12/22, Order for future visit, Nurse collect, Chronic diarrhea, Not Required, Print Label By Order Location Medications What How Much When Instructions Unchanged alendronate (Fosamax 70 mg oral tablet) Every week Contact prescribing physician if questions or concerns Unchanged aspirin Contact prescribing physician if questions or concerns Unchanged buPROPion Contact prescribing physician if questions or concerns Unchanged ciprofloxacin (Cipro) Every 12 hours Contact prescribing physician if questions or concerns Unchanged clonazepam 3 times a day Contact prescribing physician if questions or concerns Unchanged levothyroxine (Synthroid) Every day Contact prescribing physician if questions or concerns Unchanged losartan Every day Contact prescribing physician if questions or concerns Unchanged meclizine 3 times a day Contact prescribing physician if questions or concerns Unchanged metoprolol Contact prescribing physician if questions or concerns Unchanged mycophenolate mofetil (CellCept) 2 times a day Contact prescribing physician if questions or concerns Unchanged pancrelipase (Creon) 3 times a day Contact prescribing physician if questions or concerns Unchanged pramipexole Contact prescribing physician if questions or concerns Unchanged predniSONE Every day Contact prescribing physician if questions or concerns Unchanged simvastatin Contact prescribing physician if questions or concerns Unchanged tacrolimus Contact prescribing physician if questions or concerns Medications and Immunizations Administered Not Given influenza virus vaccine, inactivated, Patient Refuses Allergies No Known Medication Allergies Problems Ongoing - Any problem that you are currently receiving treatment for. Anemia Anxiety disorder Chronic diarrhea Chronic renal failure Coronary heart disease Depression Hx of heart transplant Hypertension Hypothyroidism Kidney disease Kidney stone LUQ pain Nausea and vomiting Pancreatic insufficiency Pancreatic lesion Valvular heart disease [facility] SYLVIA HERRERA ([id number]) 1945 F Date Time Provider Department 07/05/22 SHO CROWLEY [facility] During your visit today, we recorded the following information about you: Sho Crowley APRN.CNP 07/05/2022 10:48 AM Signed 07/03/22 labs: FK: 12.4, Cr 1.64, BUN 24, K 4.0, FBS 114, WBC 7.6, Hgb 14, Hct 42.3, Plts 191 Left message. Patient to decrease Tacrolimus 0.5mg daily repeat labs 2 weeks. Patient to call our team with update regarding transferring care to another transplant center closer to home. Left message to call our team back if she has established care with another team. Sho Crowley APRN, ODETTE Pager: [phone] July 05, 2022 10:42 AM Post Heart Transplant Nurse Practitioner Allergies As of Date: 07/05/2022 Noted Allergy Reaction PERCOCET (OXYCODONE-ACETAMINOP HEN)05/18/2014 8 - GI Upset PHENERGAN (PROMETHAZINE HCL) 10/11/2005 14 - Other: See Comments Comments: hallucinations Date Reviewed: 09/02/2019 Reviewed by: Sandrita Guerrero - Fully Assessed Reason for Visit: Heart Transplant Follow Up [1020] Lab Meeting [1204] Visit Diagnosis:Heart transplanted (HCC) [Z94.1] Order(s):tacrolimus IR (PROGRAF) 0.5 mg capsuleTake 1 capsule by mouth once daily. 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 No Dr Caldera: Rfl: TACROLIMUS/FK-506 BL [[id number]] Order #: [id number] FUTURE Prescriptions as of 07/05/2022 - tacrolimus IR (PROGRAF) 0.5 mg capsule Take 1 capsule by mouth once daily. 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 No Dr Don - mycophenolate mofetil (CELLCEPT) 250 mg capsule take 2 capsules by mouth every morning and 2 capsules every evening. Z94.1 heart replaced by transplant - amitriptyline (ELAVIL) 10 mg tablet Take 1 tablet by mouth daily at bedtime. - losartan (COZAAR) 100 mg tablet Take 1 tablet by mouth once daily. - magnesium oxide (MAG-OX) 400 mg (241.3 mg magnesium) tablet Take 1 tablet by mouth once daily. - clonazePAM (KLONOPIN) 0.5 mg tablet Take 2 tablets by mouth as needed for up to 180 days. - levothyroxine (SYNTHROID) 88 mcg tablet Take 1 tablet by mouth once daily. - buPROPion XL (WELLBUTRIN XL) 300 mg 24 hr tablet Take 1 tablet by mouth once daily. - simvastatin (ZOCOR) 20 mg tablet Take 1 tablet by mouth daily at bedtime. - Loperamide HCl (IMODIUM) 2 mg tab Take 2 mg by mouth three times daily. - zlfybf-xdmkkapc-agkzw se (CREON) 24,000-76,000 -120,000 unit cpDR Take 3 capsules by mouth three times daily with meals. TAKE 3 CAPSULES THREE TIMES A DAY WITH MEALS AND 1 CAPSULE IF HAVING A SNACK - pramipexole (MIRAPEX) 0.25 mg tablet Take 1 tablet by mouth daily at bedtime. - alendronate (FOSAMAX) 70 mg tablet Take 1 tablet by mouth once each week. in the morning with a full glass of water, on an empty stomach, and do not take anything else by mouth or lie down for the next 30 minutes. - acetaminophen 325 mg tablet Take 1-2 tablets by mouth every 4 hours as needed. - omega-3 fatty acids 1,000 mg cap Take 2 capsules by mouth once daily. - Cholecalciferol, Vitamin D3, (VITAMIN D) 1,000 unit Tab Take 1 tablet by mouth once daily. - aspirin(ECOTRIN LOW STRENGTH 81 MG TAB) Take one(1) tablet daily. - MULTIVITAMIN TAB Take one(1) tablet daily. 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] 03/15/2006 08/12/2013 Heart replaced by transplant [Z94.1] 03/19/2006 08/12/2013 Chronic ethmoidal sinusitis [J32.2] 10/30/2007 08/12/2013 Unspecified essential hypertension [I10] 09/02/2019 Unspecified hypothyroidism [E03.9] 05/19/2014 Encounter for long-term (current) use of other *08/26/2008 08/12/2013 SUMMARY [V999.95] 08/10/2013 09/02/2019 Heart transplanted (HCC) [Z94.1] 08/10/2013 Abdominal pain [R10.9] 08/10/2013 05/19/2014 Depression [F32.A] 08/10/2013 08/12/2013 GERD (gastroesophageal reflux disease) [K21.9] 08/10/2013 08/12/2013 History of immunosuppression therapy [Z92.25] 08/11/2013 08/12/2013 Kidney stone [N20.0] 08/11/2013 05/06/2014 Depression [F32.A] 08/12/2013 Hypertension [I10] 08/12/2013 Hypothyroidism [E03.9] 08/12/2013 DVT prophylaxis [Z29.9] 08/17/2013 09/02/2019 Right lower quadrant pain [R10.31] 04/29/2014 09/02/2019 Diabetes mellitus, type II (HCC) [E11.9] 04/29/2014 DREW (acute kidney injury) (HCC) [N17.9] 05/06/2014 05/19/2014 Orthostasis [I95.1] 05/06/2014 05/19/2014 Gastroenteritis [K52.9] 05/18/2014 Right groin pain [R10.31] 05/18/2014 Diarrhea [R19.7] 11/29/2014 09/02/2019 Prophylactic immunotherapy [Z29.8] 11/29/2014 Pneumonia [J18.9] 11/29/2014 09/02/2019 Delirium [R41.0] 12/03/2014 09/02/2019 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] 12/03/2014 09/02/2019 A (more content not included)... Normal Rojas BOX TEST SENT OUTon 07-03-20 22 SENT TO REF LAB 07/03/2022 Normal [facility] Comment on above: Performed By: #### E RANDALL PINON #### [facility] [address] [place] [address] Dr. Hardeep Rivera CBC AUTO DIFFon 07-03-2022 BASO # 0.0 103/ul Normal 0.0-0.1 [facility] Comment on above: Performed By: #### C BC #### [facility] [address] [place] [address] Dr. Hardeep Rivera Basophils/100 WBC (Bld) 0.3 % Normal 0.2-2.0 [facility] Comment on above: Performed By: #### C BC #### [facility] [address] [place] [address] Dr. Hardeep Rivera EO # 0.1 103/ul Normal 0.0-0.7 [facility] Comment on above: Performed By: #### C BC #### [facility] [address] [place] [address] Dr. Hardeep Rivera Eosinophils/100 WBC (Bld) 0.9 % Normal 0.9-7.0 [facility] Comment on above: Performed By: #### C BC #### [facility] [address] [place] [address] Dr. Hardeep Rivera Erythrocyte distribution width (RBC) [Ratio] 12.2 % Normal 11.0-15.0 [facility] Comment on above: Performed By: #### C BC #### [facility] [address] [place] [address] Dr. Hardeep Rivera Hematocrit (Bld) [Volume fraction] 42.3 % Normal 36.0-48.0 [facility] Comment on above: Performed By: #### C BC #### [facility] [address] [place] [address] Dr. Hardeep Rivera Hemoglobin (Bld) [Mass/Vol] 14.0 g/dL Normal 12.0-16.0 [facility] Comment on above: Performed By: #### C BC #### [facility] [address] [place] [address] Dr. Hardeep Rivera IG # 0.04 10e3/ul Critically high 0.00-0.03 [facility] Comment on above: Performed By: #### C BC #### [facility] [address] [place] [address] Dr. Hardeep Rivera IG % 0.5 % Normal 0.0-0.5 [facility] Comment on above: Performed By: #### C BC #### [facility] [address] [place] [address] Dr. Hardeep Rivera LYMPH # 0.8 103/ul Critically low 1.2-3.8 [facility] Comment on above: Performed By: #### C BC #### [facility] [address] [address] [address] Hardeep Rivera Lymphocytes/100 WBC (Bld) 10.9 % Critically low 20.5-60.0 [facility] Comment on above: Performed By: #### C BC #### [facility] [address] [place] [address] Dr. Hardeep Rivera MANUAL DIFF REQ NO Normal [facility] Comment on above: Performed By: #### C BC #### [facility] [address] [place] [address] Dr. Hardeep Rivera MCH (RBC) [Entitic mass] 29.7 pg Normal 26.7-34.0 [facility] Comment on above: Performed By: #### C BC #### [facility] [address] [place] [address] Dr. Hardeep Rivera MCHC (RBC) [Mass/Vol] 33.1 g/dL Normal 29.9-35.2 [facility] Comment on above: Performed By: #### C BC #### [facility] [address] [place] [address] Dr. Hardeep Rivera MCV (RBC) [Entitic vol] 89.8 fL Normal 81.0-99.0 [facility] Comment on above: Performed By: #### C BC #### [facility] [address] [place] [address] Dr. Hardeep Rivera MONO # 0.9 103/ul Critically high 0.3-0.8 [facility] Comment on above: Performed By: #### C BC #### [facility] [address] [place] [address] Dr. Hardeep Rivera Monocytes/100 WBC (Bld) 11.1 % Normal 1.7-12.0 [facility] Comment on above: Performed By: #### C BC #### [facility] [address] [place] [address] Dr. Hardeep Rivera NEUT # 5.8 103/ul Normal 1.4-6.5 [facility] Comment on above: Performed By: #### C BC #### [facility] [address] [address] [address] Hardeep Rivera Neutrophils/100 WBC (Bld) 76.3 % Critically high 43.0-75.0 [facility] Comment on above: Performed By: #### C BC #### [facility] [address] [address] [address] Hardeep Rivera Platelet mean volume (Bld) [Entitic vol] 9.5 fL Normal 9.5-13.5 [facility] Comment on above: Performed By: #### C BC #### [facility] [address] [address] [address] Hardeep Rivera PLT 191 103/ul Normal 150-450 [facility] Comment on above: Performed By: #### C BC #### [facility] [address] [place] [address] Dr. Hardeep Rivera RBC 4.71 106/ul Normal 4.20-5.40 [facility] Comment on above: Performed By: #### C BC #### [facility] [address] [place] [address] Dr. Hardeep Rivera WBC 7.6 103/ul Normal 4.0-11.0 [facility] Comment on above: Performed By: #### C BC #### [facility] [address] [place] [address] Dr. Hardeep Clark 07-03-2022 CNPN Telephone (JULIAN [facility]) SYLVIA HERRERA ([id number]) 1945 F Date Time Provider Department 07/03/22 SOY MCCANN [facility] During your visit today, we recorded the following information about you: Linden Faustina 07/03/2022 1:02 PM Signed Patient had labs drawn 07/03/22, uploaded to [facility]. Allergies As of Date: 07/03/2022 Noted Allergy Reaction PERCOCET (OXYCODONE-ACETAMINOP HEN)05/18/2014 8 - GI Upset PHENERGAN (PROMETHAZINE HCL) 10/11/2005 14 - Other: See Comments Comments: hallucinations Date Reviewed: 09/02/2019 Reviewed by: Sandrita Guerrero - Fully Assessed Reason for Visit: Heart Transplant Follow Up [1020] Cmt: labs Prescriptions as of 07/03/2022 - tacrolimus IR (PROGRAF) 0.5 mg capsule Take 1 capsule by mouth twice daily. 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 No Dr Don - mycophenolate mofetil (CELLCEPT) 250 mg capsule take 2 capsules by mouth every morning and 2 capsules every evening. Z94.1 heart replaced by transplant - amitriptyline (ELAVIL) 10 mg tablet Take 1 tablet by mouth daily at bedtime. - losartan (COZAAR) 100 mg tablet Take 1 tablet by mouth once daily. - magnesium oxide (MAG-OX) 400 mg (241.3 mg magnesium) tablet Take 1 tablet by mouth once daily. - clonazePAM (KLONOPIN) 0.5 mg tablet Take 2 tablets by mouth as needed for up to 180 days. - levothyroxine (SYNTHROID) 88 mcg tablet Take 1 tablet by mouth once daily. - buPROPion XL (WELLBUTRIN XL) 300 mg 24 hr tablet Take 1 tablet by mouth once daily. - simvastatin (ZOCOR) 20 mg tablet Take 1 tablet by mouth daily at bedtime. - Loperamide HCl (IMODIUM) 2 mg tab Take 2 mg by mouth three times daily. - qfhvdt-lmufeeid-bsltl se (CREON) 24,000-76,000 -120,000 unit cpDR Take 3 capsules by mouth three times daily with meals. TAKE 3 CAPSULES THREE TIMES A DAY WITH MEALS AND 1 CAPSULE IF HAVING A SNACK - pramipexole (MIRAPEX) 0.25 mg tablet Take 1 tablet by mouth daily at bedtime. - alendronate (FOSAMAX) 70 mg tablet Take 1 tablet by mouth once each week. in the morning with a full glass of water, on an empty stomach, and do not take anything else by mouth or lie down for the next 30 minutes. - acetaminophen 325 mg tablet Take 1-2 tablets by mouth every 4 hours as needed. - omega-3 fatty acids 1,000 mg cap Take 2 capsules by mouth once daily. - Cholecalciferol, Vitamin D3, (VITAMIN D) 1,000 unit Tab Take 1 tablet by mouth once daily. - aspirin(ECOTRIN LOW STRENGTH 81 MG TAB) Take one(1) tablet daily. - MULTIVITAMIN TAB Take one(1) tablet daily. 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] 03/15/2006 08/12/2013 Heart replaced by transplant [Z94.1] 03/19/2006 08/12/2013 Chronic ethmoidal sinusitis [J32.2] 10/30/2007 08/12/2013 Unspecified essential hypertension [I10] 09/02/2019 Unspecified hypothyroidism [E03.9] 05/19/2014 Encounter for long-term (current) use of other *08/26/2008 08/12/2013 SUMMARY [V999.95] 08/10/2013 09/02/2019 Heart transplanted (HCC) [Z94.1] 08/10/2013 Abdominal pain [R10.9] 08/10/2013 05/19/2014 Depression [F32.A] 08/10/2013 08/12/2013 GERD (gastroesophageal reflux disease) [K21.9] 08/10/2013 08/12/2013 History of immunosuppression therapy [Z92.25] 08/11/2013 08/12/2013 Kidney stone [N20.0] 08/11/2013 05/06/2014 Depression [F32.A] 08/12/2013 Hypertension [I10] 08/12/2013 Hypothyroidism [E03.9] 08/12/2013 DVT prophylaxis [Z29.9] 08/17/2013 09/02/2019 Right lower quadrant pain [R10.31] 04/29/2014 09/02/2019 Diabetes mellitus, type II (HCC) [E11.9] 04/29/2014 DREW (acute kidney injury) (HCC) [N17.9] 05/06/2014 05/19/2014 Orthostasis [I95.1] 05/06/2014 05/19/2014 Gastroenteritis [K52.9] 05/18/2014 Right groin pain [R10.31] 05/18/2014 Diarrhea [R19.7] 11/29/2014 09/02/2019 Prophylactic immunotherapy [Z29.8] 11/29/2014 Pneumonia [J18.9] 11/29/2014 09/02/2019 Delirium [R41.0] 12/03/2014 09/02/2019 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] 12/03/2014 09/02/2019 DREW (acute kidney injury) (HCC) [N17.9] 12/03/2014 Anxiety disorder [F41.9] 07/05/2015 Pain [R52] 11/14/2017 09/02/2019 Encounter Status:Closed by LINDEN WEEMS on 07/03/22 Normal [facility] PROF CHEM 8 (BAS METB)on Anion gap [Moles/Vol] 12.9 mmol/L Normal [facility] Comment on above: Performed By: #### Deedee PINON UMICRO #### [facility] [address] [address] [address] Hardeep Rivera Calcium [Mass/Vol] 9.0 mg/dL Normal 8.5-10.1 [facility] Comment on above: Performed By: #### Deedee PINON UMICRO #### [facility] [address] [address] [address] Hardeep Rivera Chloride [Moles/Vol] 98 mmol/L Normal 98-107 [facility] Comment on above: Performed By: #### Deedee PINON UMICRO #### [facility] [address] [address] [address] Hardeep Rivera CO2 [Moles/Vol] 28.1 mmol/L Normal 21.0-32.0 [facility] Comment on above: Performed By: #### Deedee PINON UMICRO #### [facility] [address] [address] [address] Hardeep Rivera Creatinine [Mass/Vol] 1.64 mg/dL Critically high 0.55-1.02 [facility] Comment on above: Performed By: #### RANDALL OLSON #### [facility] [address] [place] [address] Dr. Hardeep Rivera EGFR-AF ZIMBABWEAN 37 mL/min/1.73m2 Critically low >=60 [facility] Comment on above: Performed By: #### RANDALL OLSON #### [facility] [address] [place] [address] Dr. Hardeep Rivera EGFR-NON AF ZIMBABWEAN 30 mL/min/1.73m2 Critically low >=60 [facility] Comment on above: Performed By: #### RANDALL OLSON #### [facility] [address] [place] [address] Dr. Hardeep Rivera Glucose [Mass/Vol] 114 mg/dL Critically high 74-106 T [facility] Comment on above: Performed By: #### HARI OLSONRO #### [facility] [address] [place] [address] Dr. Hardeep Rivera Potassium [Moles/Vol] 4.0 mmol/L Normal 3.5-5.1 [facility] Comment on above: Performed By: #### RANDALL OLSON #### [facility] [address] [place] [address] Dr. Hardeep Rivera Sodium [Moles/Vol] 135 mmol/L Critically low 136-145 Th [facility] Comment on above: Performed By: #### HARI OLSONRO #### [facility] [address] [place] [address] Dr. Hardeep Rivera Urea nitrogen [Mass/Vol] 24.0 mg/dL Critically high 7.0-18.0 [facility] Comment on above: Performed By: #### HARI OLSONRO #### [facility] [address] [place] [address] Dr. Hardeep Rivera Urea nitrogen/Creatinine [Mass ratio] 14.6 mg/mg Normal [facility] Comment on above: Performed By: #### HARI OLSONRO #### [facility] [id number] Hardeep Rivera Tacrolimus Bld-ncon 2021 Tacrolimus (Bld) [Mass/Vol] 12.4 ng/mL Normal 5.0-20.0 [facility] Comment on above: Order Comment: Speci men Type: BLOOD SPECIMENOrdering Facility: [facility] Address: , , Result Comment: Thes e reference ranges are provided as a general recommendation. Individualized target levels for a given patient will depend on many factors (including the type of organ transplant, time since transplantation, concurrent medications, and other clinical factors), and should be assessed by those health care providers experienced in the management of immunosuppression. Reference ranges and high/low indicator flags are provided as general guidelines only. The treating physician must determine appropriate target levels/dosing based on the specific clinical situation. Test performed by chemiluminescent immunoassay using [employer]. Performed By: #### 1 [id number] ####[facility] LABCLIA [id number] [place] [address] [place] MG MAMM SCREEN 3D TRISHA CADon 05-28-2022 MG MAMM SCREEN 3D TRISHA CAD Patient: SYLVIA HERRERA Exam Date: 05/28/2022 : 1945 Gender:F Ordering : DR TAO ROONEY . Admission #: [id number] Family : Order #: [id number] CLICK HERE TO VIEW EXAM RADIOLOGY REPORT PROCEDURE: MAMMOGRAM SCREENING 3D BILATERAL CAD COMPARISON: MG MAMM SCREEN TRISHA W CAD, 08/14/2017. MG MAMM SCREEN 3D TRISHA CAD, 05/22/2021. INDICATIONS: Screening mammography Calculator Name NCI Breast Cancer Risk Assessment Tool 5 Year Breast Cancer Risk 1.30% Lifetime Breast Cancer Risk 2.40% Personal Breast Cancer No Personal Ovarian Cancer No Treatments None Family Cancers None LOCATION: [facility] BREAST COMPOSITION: Heterogeneously dense,which may obscure small masses. FINDINGS: DIAGNOSTIC CATEGORY 2--BENIGN FINDING. NO CHANGE FROM COMPARISON. Scattered benign-appearing nodules are present. Scattered benign-appearing calcifications are present. RIGHT BREAST: No significant suspicious finding. LEFT BREAST: No significant suspicious finding. RECOMMENDATIONS: ROUTINE MAMMOGRAM AND CLINICAL EVALUATION IN 12 MONTHS. PLEASE NOTE: A NORMAL MAMMOGRAM DOES NOT EXCLUDE THE POSSIBILITY OF BREAST CANCER. A CLINICALLY SUSPICIOUS PALPABLE LUMP SHOULD BE BIOPSIED. Dictated by: Jazlyn Ibrahim MD on 05/28/2022 at 10:18 Approved by: Jazlyn Ibrahim MD on 05/28/2022 at 10:20 Normal [facility] Physician Referralon 022 Physician Referral [phone] [id number] Normal [facility] CNPN Telephone (CARD [facility]) SYLVIA HERRERA ([id number]) 1945 F Date Time Provider Department 05/08/22 LOIDA MATHIAS [facility] During your visit today, we recorded the following information about you: Linden Faustina 05/08/2022 11:50 AM Signed Patient had labs drawn 05/07/22, uploaded to scanned docs. Linden Weems Administrative Registered Veterinary Technician Loida Mathias APRN.CNP 05/08/2022 3:21 PM Signed Received labs drawn 05/07 -- FK 3.4 Cr 1.6 BUN 33 K 4.0 FBS 73 WBC 7800 Hgb 14 Hct 44 Plts 188 Called and spoke with patient. Advised she increase her Tacrolimus dose back up to 0.5 mg BID. Repeat labs in 2 weeks. She is still working on getting set up with a transplant center that is closer to her home. She will keep us posted. Loida Mathias APRN.CNP May 08, 2022 3:19 PM Component Latest Ref Rng AND Units 10/10/2021 04/09/2022 04/24/2022 05/07/2022 Tacrolimus/FK506 5.0 - 20.0 ng/mL 10.1 9.9 4.5 (L) 3.4 (L) Loida Mathias APRN.CNP 05/08/2022 3:26 PM Signed Addended by: LOIDA MATHIAS on: 05/08/2022 03:26 PM Modules accepted: Orders Allergies As of Date: 05/08/2022 Noted Allergy Reaction PERCOCET (OXYCODONE-ACETAMINOP HEN)05/18/2014 8 - GI Upset PHENERGAN (PROMETHAZINE HCL) 10/11/2005 14 - Other: See Comments Comments: hallucinations Date Reviewed: 09/02/2019 Reviewed by: Sandrita Guerrero - Fully Assessed Reason for Visit: Heart Transplant Follow Up [1020] Cmt: labs Visit Diagnosis:Heart transplanted (HCC) [Z94.1] Order(s):tacrolimus IR (PROGRAF) 0.5 mg capsuleTake 1 capsule by mouth twice daily. 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 No Dr Ellerp: Rfl: TACROLIMUS/FK-506 BL [[id number]] Order #: [id number] FUTURE Prescriptions as of 05/08/2022 - tacrolimus IR (PROGRAF) 0.5 mg capsule Take 1 capsule by mouth twice daily. 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 No Dr Don - mycophenolate mofetil (CELLCEPT) 250 mg capsule take 2 capsules by mouth every morning and 2 capsules every evening. Z94.1 heart replaced by transplant - amitriptyline (ELAVIL) 10 mg tablet Take 1 tablet by mouth daily at bedtime. - losartan (COZAAR) 100 mg tablet Take 1 tablet by mouth once daily. - magnesium oxide (MAG-OX) 400 mg (241.3 mg magnesium) tablet Take 1 tablet by mouth once daily. - clonazePAM (KLONOPIN) 0.5 mg tablet Take 2 tablets by mouth as needed for up to 180 days. - levothyroxine (SYNTHROID) 88 mcg tablet Take 1 tablet by mouth once daily. - buPROPion XL (WELLBUTRIN XL) 300 mg 24 hr tablet Take 1 tablet by mouth once daily. - simvastatin (ZOCOR) 20 mg tablet Take 1 tablet by mouth daily at bedtime. - Loperamide HCl (IMODIUM) 2 mg tab Take 2 mg by mouth three times daily. - scjhxk-igkwncem-dasug se (CREON) 24,000-76,000 -120,000 unit cpDR Take 3 capsules by mouth three times daily with meals. TAKE 3 CAPSULES THREE TIMES A DAY WITH MEALS AND 1 CAPSULE IF HAVING A SNACK - pramipexole (MIRAPEX) 0.25 mg tablet Take 1 tablet by mouth daily at bedtime. - alendronate (FOSAMAX) 70 mg tablet Take 1 tablet by mouth once each week. in the morning with a full glass of water, on an empty stomach, and do not take anything else by mouth or lie down for the next 30 minutes. - acetaminophen 325 mg tablet Take 1-2 tablets by mouth every 4 hours as needed. - omega-3 fatty acids 1,000 mg cap Take 2 capsules by mouth once daily. - Cholecalciferol, Vitamin D3, (VITAMIN D) 1,000 unit Tab Take 1 tablet by mouth once daily. - aspirin(ECOTRIN LOW STRENGTH 81 MG TAB) Take one(1) tablet daily. - MULTIVITAMIN TAB Take one(1) tablet daily. 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] 03/15/2006 08/12/2013 Heart replaced by transplant [Z94.1] 03/19/2006 08/12/2013 Chronic ethmoidal sinusitis [J32.2] 10/30/2007 08/12/2013 Unspecified essential hypertension [I10] 09/02/2019 Unspecified hypothyroidism [E03.9] 05/19/2014 Encounter for long-term (current) use of other *08/26/2008 08/12/2013 SUMMARY [V999.95] 08/10/2013 09/02/2019 Heart transplanted (HCC) [Z94.1] 08/10/2013 Abdominal pain [R10.9] 08/10/2013 05/19/2014 Depression [F32.A] 08/10/2013 08/12/2013 GERD (gastroesophageal reflux disease) [K21.9] 08/10/2013 08/12/2013 History of immunosuppression therapy [Z92.25] 08/11/2013 08/12/2013 Kidney stone [N20.0] 08/11/2013 05/06/2014 Depression [F32.A] 08/12/2013 Hypertension [I10] 08/12/2013 Hypothyroidism [E03.9] 08/12/2013 DVT prophylaxis [Z29.9] 08/17/2013 09/02/2019 Right lower quadrant pain [R10.31] 04/29/2014 09/02/2019 Diabetes mellitus, type II (HCC) [E11.9] 04/29/2014 DREW (acute kidney injury) (HCC) [N17.9] 05/06/2014 05/19/2014 Orthosta (more content not included)... Normal Rojas BOX TEST SENT OUTon 05-07-20 22 SENT TO REF LAB 05/07/2022 Normal [facility] Comment on above: Performed By: #### HARI OLSONRO #### [facility] [address] [place] [address] Dr. Hardeep Rivera CBC AUTO DIFFon 05-07-2022 BASO # 0.0 103/ul Normal 0.0-0.1 [facility] Comment on above: Performed By: #### Deedee PINON UMICRO #### [facility] [address] [place] [address] Dr. Hardeep Rivera Basophils/100 WBC (Bld) 0.4 % Normal 0.2-2.0 [facility] Comment on above: Performed By: #### Deedee PINON UMICRO #### [facility] [address] [place] [address] Dr. Hardeep Rivera EO # 0.1 103/ul Normal 0.0-0.7 [facility] Comment on above: Performed By: #### Deedee PINON UMICRO #### [facility] [address] [place] [address] Dr. Hardeep Rivera Eosinophils/100 WBC (Bld) 1.0 % Normal 0.9-7.0 [facility] Comment on above: Performed By: #### Deedee PINON, UMICRO #### [facility] [address] [place] [address] Dr. Hardeep Rivera Erythrocyte distribution width (RBC) [Ratio] 12.6 % Normal 11.0-15.0 [facility] Comment on above: Performed By: #### RANDALL OLSON #### [facility] [address] [place] [address] Dr. Hardeep Rivera Hematocrit (Bld) [Volume fraction] 44.0 % Normal 36.0-48.0 [facility] Comment on above: Performed By: #### HARI OLSONRO #### [facility] [address] [place] [address] Dr. Hardeep Rivera Hemoglobin (Bld) [Mass/Vol] 14.0 g/dL Normal 12.0-16.0 [facility] Comment on above: Performed By: #### HARI OLSONRO #### [facility] [address] [place] [address] Dr. Hardeep Rivera IG # 0.02 10e3/ul Normal 0.00-0.03 [facility] Comment on above: Performed By: #### HARI OLSONRO #### [facility] [address] [place] [address] Dr. Hardeep Rivera IG % 0.3 % Normal 0.0-0.5 [facility] Comment on above: Performed By: #### RANDALL OLSON #### [facility] [address] [place] [address] Dr. Hardeep Rivera LYMPH # 0.6 103/ul Critically low 1.2-3.8 [facility] Comment on above: Performed By: #### HARI OLSONRO #### [facility] [address] [place] [address] Dr. Hardeep Rivera Lymphocytes/100 WBC (Bld) 8.2 % Critically low 20.5-60.0 [facility] Comment on above: Performed By: #### HARI OLSONRO #### [facility] [address] [place] [address] Dr. Hardeep Rivera MANUAL DIFF REQ NO Normal [facility] Comment on above: Performed By: #### HARI OLSONRO #### [facility] [address] [place] [address] Dr. Hardeep Rivera MCH (RBC) [Entitic mass] 29.4 pg Normal 26.7-34.0 [facility] Comment on above: Performed By: #### Deedee PINON, UMICRO #### [facility] [address] [place] [address] Dr. Hardeep Rivera MCHC (RBC) [Mass/Vol] 31.8 g/dL Normal 29.9-35.2 [facility] Comment on above: Performed By: #### E KATHRIN, UMICRO #### [facility] [address] [place] [address] Dr. Hardeep Rivera MCV (RBC) [Entitic vol] 92.2 fL Normal 81.0-99.0 [facility] Comment on above: Performed By: #### Deedee PINON, UMICRO #### [facility] [address] [place] [address] Dr. Hardeep Rivera MONO # 0.8 103/ul Normal 0.3-0.8 [facility] Comment on above: Performed By: #### Deedee PNION, UMICRO #### [facility] [address] [place] [address] Dr. Hardeep Rivera Monocytes/100 WBC (Bld) 9.6 % Normal 1.7-12.0 [facility] Comment on above: Performed By: #### Deedee PINON, UMICRO #### [facility] [address] [place] [address] Dr. Hardeep Rivera NEUT # 6.3 103/ul Normal 1.4-6.5 [facility] Comment on above: Performed By: #### E KATHRIN, UMICRO #### [facility] [address] [place] [address] Dr. Hardeep Rivera Neutrophils/100 WBC (Bld) 80.5 % Critically high 43.0-75.0 [facility] Comment on above: Performed By: #### E KATHRIN, UMICRO #### [facility] [address] [place] [address] Dr. Hardeep Rivera Platelet mean volume (Bld) [Entitic vol] 10.1 fL Normal 9.5-13.5 [facility] Comment on above: Performed By: #### HARI OLSONRO #### [facility] [address] [place] [address] Dr. Hardeep Rivera PLT 188 103/ul Normal 150-450 [facility] Comment on above: Performed By: #### HARI OLSONRO #### [facility] [address] [place] [address] Dr. Hardeep Rivera RBC 4.77 106/ul Normal 4.20-5.40 [facility] Comment on above: Performed By: #### HARI OLSONRO #### [facility] [address] [place] [address] Dr. Hardeep Rivera WBC 7.8 103/ul Normal 4.0-11.0 [facility] Comment on above: Performed By: #### HARI OLSONRO #### [facility] [address] [place] [address] Dr. Hardeep Rivera PROF CHEM 8 (BAS METB)on Anion gap [Moles/Vol] 11.9 mmol/L [facility] Comment on above: Performed By: #### RANDALL OLSON #### [facility] [address] [place] [address] Dr. Hardeep Rivera Calcium [Mass/Vol] 8.7 mg/dL Normal 8.5-10.1 [facility] Comment on above: Performed By: #### HARI OLSONRO #### [facility] [address] [place] [address] Dr. Hardeep Rivera Chloride [Moles/Vol] 99 mmol/L Normal 98-107 [facility] Comment on above: Performed By: #### HARI OLSONRO #### [facility] [address] [place] [address] Dr. Hardeep Rivera CO2 [Moles/Vol] 27.1 mmol/L Normal 21.0-32.0 [facility] Comment on above: Performed By: #### HARI OLSONRO #### [facility] [address] [address] [address] Hardeep Rivera Creatinine [Mass/Vol] 1.62 mg/dL Critically high 0.55-1.02 [facility] Comment on above: Performed By: #### HARI OLSONRO #### [facility] [address] [address] [address] Hardeep Rivera EGFR-AF ZIMBABWEAN 37 mL/min/1.73m2 Critically low >=60 [facility] Comment on above: Performed By: #### Deedee PINON UMICRO #### [facility] [address] [address] [address] Hardeep Rivera EGFR-NON AF ZIMBABWEAN 31 mL/min/1.73m2 Critically low >=60 [facility] Comment on above: Performed By: #### Deedee PINON UMICRO #### [facility] [address] [place] [address] Dr. Hardeep Rivera Glucose [Mass/Vol] 73 mg/dL Critically low 74-106 [facility] Comment on above: Performed By: #### Deedee PINON UMICRO #### [facility] [address] [address] [address] Hardeep Rivera Potassium [Moles/Vol] 4.0 mmol/L Normal 3.5-5.1 [facility] Comment on above: Performed By: #### Deedee PINON UMICRO #### [facility] [address] [address] [address] Hardeep Rivera Sodium [Moles/Vol] 134 mmol/L Critically low 136-145 [facility] Comment on above: Performed By: #### Deedee PINON UMICRO #### [facility] [address] [address] [address] Hardeep Rivera Urea nitrogen [Mass/Vol] 33.0 mg/dL Critically high 7.0-18.0 [facility] Comment on above: Performed By: #### Deedee PINON UMICRO #### [facility] [address] [address] [address] Hardeep Rivera Urea nitrogen/Creatinine [Mass ratio] 20.4 mg/mg Normal [facility] Comment on above: Performed By: #### E RANDALL PINON #### [facility] [address] [address] [address] Hardeep Rivera TACROLIMUS/FK-506 BLoneri 05-07 Tacrolimus (Bld) [Mass/Vol] 3.4 ng/mL Low 5.0-20.0 [facility] Comment on above: Order Comment: Speci men Type: BLOOD SPECIMENOrdering Facility: [facility] Address: , , Result Comment: Thes e reference ranges are provided as a general recommendation. Individualized target levels for a given patient will depend on many factors (including the type of organ transplant, time since transplantation, concurrent medications, and other clinical factors), and should be assessed by those health care providers experienced in the management of immunosuppression. Reference ranges and high/low indicator flags are provided as general guidelines only. The treating physician must determine appropriate target levels/dosing based on the specific clinical situation. Test performed by chemiluminescent immunoassay using [employer]. Performed By: #### F K506 ####[facility] LABCLIA [id number] [address] [facility] Kay [facility]22 CNPN Telephone (JULIAN CONNELLY MAI) SYLVIA HERRERA ([id number]) 1945 F Date Time Provider Department 05/03/22 SHO CROWLEY [facility] ISACC During your visit today, we recorded the following information about you: Sho Crowley APRN.GENERAL LABOR 05/03/2022 2:58 PM Signed received phone call from [facility]iology group requesting patient's Tacrolimus levels from 04/24. Faxed results to [phone]. Allergies As of Date: 05/03/2022 Noted Allergy Reaction PERCOCET (OXYCODONE-ACETAMINOP HEN)05/18/2014 8 - GI Upset PHENERGAN (PROMETHAZINE HCL) 10/11/2005 14 - Other: See Comments Comments: hallucinations Date Reviewed: 09/02/2019 Reviewed by: Sandrita Guerrero - Fully Assessed Reason for Visit: Heart Transplant Follow Up [1020] Cmt: OSH FK lab results Prescriptions as of 05/03/2022 - tacrolimus IR (PROGRAF) 0.5 mg capsule Take 1 capsule by mouth once daily in AM. 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 No Dr Don - mycophenolate mofetil (CELLCEPT) 250 mg capsule take 2 capsules by mouth every morning and 2 capsules every evening. Z94.1 heart replaced by transplant - amitriptyline (ELAVIL) 10 mg tablet Take 1 tablet by mouth daily at bedtime. - losartan (COZAAR) 100 mg tablet Take 1 tablet by mouth once daily. - magnesium oxide (MAG-OX) 400 mg (241.3 mg magnesium) tablet Take 1 tablet by mouth once daily. - clonazePAM (KLONOPIN) 0.5 mg tablet Take 2 tablets by mouth as needed for up to 180 days. - levothyroxine (SYNTHROID) 88 mcg tablet Take 1 tablet by mouth once daily. - buPROPion XL (WELLBUTRIN XL) 300 mg 24 hr tablet Take 1 tablet by mouth once daily. - simvastatin (ZOCOR) 20 mg tablet Take 1 tablet by mouth daily at bedtime. - Loperamide HCl (IMODIUM) 2 mg tab Take 2 mg by mouth three times daily. - lcrdlx-tvbhpjqs-hheuk se (CREON) 24,000-76,000 -120,000 unit cpDR Take 3 capsules by mouth three times daily with meals. TAKE 3 CAPSULES THREE TIMES A DAY WITH MEALS AND 1 CAPSULE IF HAVING A SNACK - pramipexole (MIRAPEX) 0.25 mg tablet Take 1 tablet by mouth daily at bedtime. - alendronate (FOSAMAX) 70 mg tablet Take 1 tablet by mouth once each week. in the morning with a full glass of water, on an empty stomach, and do not take anything else by mouth or lie down for the next 30 minutes. - acetaminophen 325 mg tablet Take 1-2 tablets by mouth every 4 hours as needed. - omega-3 fatty acids 1,000 mg cap Take 2 capsules by mouth once daily. - Cholecalciferol, Vitamin D3, (VITAMIN D) 1,000 unit Tab Take 1 tablet by mouth once daily. - aspirin(ECOTRIN LOW STRENGTH 81 MG TAB) Take one(1) tablet daily. - MULTIVITAMIN TAB Take one(1) tablet daily. 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 08/12/2013 Heart replaced by transplant [Z94.1] 03/19/2006 08/12/2013 Chronic ethmoidal sinusitis [J32.2] 10/30/2007 08/12/2013 Unspecified essential hypertension [I10] 09/02/2019 Unspecified hypothyroidism [E03.9] 05/19/2014 Encounter for long-term (current) use of other *08/26/2008 08/12/2013 SUMMARY [V999.95] 08/10/2013 09/02/2019 Heart transplanted (HCC) [Z94.1] 08/10/2013 Abdominal pain [R10.9] 08/10/2013 05/19/2014 Depression [F32.A] 08/10/2013 08/12/2013 GERD (gastroesophageal reflux disease) [K21.9] 08/10/2013 08/12/2013 History of immunosuppression therapy [Z92.25] 08/11/2013 08/12/2013 Kidney stone [N20.0] 08/11/2013 05/06/2014 Depression [F32.A] 08/12/2013 Hypertension [I10] 08/12/2013 Hypothyroidism [E03.9] 08/12/2013 DVT prophylaxis [Z29.9] 08/17/2013 09/02/2019 Right lower quadrant pain [R10.31] 04/29/2014 09/02/2019 Diabetes mellitus, type II (HCC) [E11.9] 04/29/2014 DREW (acute kidney injury) (HCC) [N17.9] 05/06/2014 05/19/2014 Orthostasis [I95.1] 05/06/2014 05/19/2014 Gastroenteritis [K52.9] 05/18/2014 Right groin pain [R10.31] 05/18/2014 Diarrhea [R19.7] 11/29/2014 09/02/2019 Prophylactic immunotherapy [Z29.8] 11/29/2014 Pneumonia [J18.9] 11/29/2014 09/02/2019 Delirium [R41.0] 12/03/2014 09/02/2019 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 Hardeep Rivera [facility] 04-24-2022 CNPN Telephone (CARD CHF ISACC) SYLVIA HERRERA ([id number]) 1945 F Date Time Provider Department 04/24/22 LOIDA MATHIAS CARD CHF ISACC During your visit today, we recorded the following information about you: Linden Weems 04/24/2022 1:31 PM Signed Patient left message that she had labs drawn today. Linden Weems Administrative Registered Veterinary Technician Post Heart Transplant J3-4 Loida Mathias APRN.GENERAL LABOR 04/26/2022 11:25 AM Signed Received FK level 4.5, drawn 04/24 My chart message sent to patient. Advised to remain on current dose and keep our office updated re: her plans for post transplant follow up. Loida Mathias APRN.GENERAL LABOR April 26, 2022 11:24 AM Component Latest Ref Rng AND Units 04/24/2022 Tacrolimus/FK506 5.0 - 20.0 ng/mL 4.5 (L) Allergies As of Date: 04/24/2022 Noted Allergy Reaction PERCOCET (OXYCODONE-ACETAMINOP HEN)05/18/2014 8 - GI Upset PHENERGAN (PROMETHAZINE HCL) 10/11/2005 14 - Other: See Comments Comments: hallucinations Date Reviewed: 09/02/2019 Reviewed by: Sandrita Guerrero - Fully Assessed Reason for Visit: Heart Transplant Follow Up [1020] Prescriptions as of 04/26/2022 - tacrolimus IR (PROGRAF) 0.5 mg capsule Take 1 capsule by mouth once daily in AM. 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 No Dr Don - mycophenolate mofetil (CELLCEPT) 250 mg capsule take 2 capsules by mouth every morning and 2 capsules every evening. Z94.1 heart replaced by transplant - amitriptyline (ELAVIL) 10 mg tablet Take 1 tablet by mouth daily at bedtime. - losartan (COZAAR) 100 mg tablet Take 1 tablet by mouth once daily. - magnesium oxide (MAG-OX) 400 mg (241.3 mg magnesium) tablet Take 1 tablet by mouth once daily. - clonazePAM (KLONOPIN) 0.5 mg tablet Take 2 tablets by mouth as needed for up to 180 days. - levothyroxine (SYNTHROID) 88 mcg tablet Take 1 tablet by mouth once daily. - buPROPion XL (WELLBUTRIN XL) 300 mg 24 hr tablet Take 1 tablet by mouth once daily. - simvastatin (ZOCOR) 20 mg tablet Take 1 tablet by mouth daily at bedtime. - Loperamide HCl (IMODIUM) 2 mg tab Take 2 mg by mouth three times daily. - hdkpdl-ncntknle-qhhpk se (CREON) 24,000-76,000 -120,000 unit cpDR Take 3 capsules by mouth three times daily with meals. TAKE 3 CAPSULES THREE TIMES A DAY WITH MEALS AND 1 CAPSULE IF HAVING A SNACK - pramipexole (MIRAPEX) 0.25 mg tablet Take 1 tablet by mouth daily at bedtime. - alendronate (FOSAMAX) 70 mg tablet Take 1 tablet by mouth once each week. in the morning with a full glass of water, on an empty stomach, and do not take anything else by mouth or lie down for the next 30 minutes. - acetaminophen 325 mg tablet Take 1-2 tablets by mouth every 4 hours as needed. - omega-3 fatty acids 1,000 mg cap Take 2 capsules by mouth once daily. - Cholecalciferol, Vitamin D3, (VITAMIN D) 1,000 unit Tab Take 1 tablet by mouth once daily. - aspirin(ECOTRIN LOW STRENGTH 81 MG TAB) Take one(1) tablet daily. - MULTIVITAMIN TAB Take one(1) tablet daily. 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 08/12/2013 Heart replaced by transplant [Z94.1] 03/19/2006 08/12/2013 Chronic ethmoidal sinusitis [J32.2] 10/30/2007 08/12/2013 Unspecified essential hypertension [I10] 09/02/2019 Unspecified hypothyroidism [E03.9] 05/19/2014 Encounter for long-term (current) use of other *08/26/2008 08/12/2013 SUMMARY [V999.95] 08/10/2013 09/02/2019 Heart transplanted (HCC) [Z94.1] 08/10/2013 Abdominal pain [R10.9] 08/10/2013 05/19/2014 Depression [F32.A] 08/10/2013 08/12/2013 GERD (gastroesophageal reflux disease) [K21.9] 08/10/2013 08/12/2013 History of immunosuppression therapy [Z92.25] 08/11/2013 08/12/2013 Kidney stone [N20.0] 08/11/2013 05/06/2014 Depression [F32.A] 08/12/2013 Hypertension [I10] 08/12/2013 Hypothyroidism [E03.9] 08/12/2013 DVT prophylaxis [Z29.9] 08/17/2013 09/02/2019 Right lower quadrant pain [R10.31] 04/29/2014 09/02/2019 Diabetes mellitus, type II (HCC) [E11.9] 04/29/2014 DREW (acute kidney injury) (HCC) [N17.9] 05/06/2014 05/19/2014 Orthostasis [I95.1] 05/06/2014 05/19/2014 Gastroenteritis [K52.9] 05/18/2014 Right groin pain [R10.31] 05/18/2014 Diarrhea [R19.7] 11/29/2014 09/02/2019 Prophylactic immunotherapy [Z29.8] 11/29/2014 Pneumonia [J18.9] 11/29/2014 09/02/2019 Delirium [R41.0] 12/03/2014 09/02/2019 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 Individualized target levels for a given patient will depend on many factors (including the type of organ transplant, time since transplantation, concurrent medications, and other clinical factors), and should be assessed by those health care providers experienced in the management of immunosuppression. Reference ranges and high/low indicator flags are provided as general guidelines only. The treating physician must determine appropriate target levels/dosing based on the specific clinical situation. Test performed by chemiluminescent immunoassay using [employer]. Performed By: #### F K506 ####[facility] LABCLIA [id number] [place] [address] [place] FK506 (TACROLIMUS) WHOLE BLO ODon 04-11-2022 Tacrolimus (FK506), Blood 7.3 ng/mL Normal 2.0-20.0 [facility] Comment on above: Result Comment: Trou gh (immediately following transplant) 15.0 . Trough (steady state, 2 weeks or more after transplant): 3.0 - 8.0 . Performed by LC-MS/MS technology. Performed By: #### RANDALL OLSON #### [facility] [address] [place] [address] Dr. Hardeep Rivera BOX TEST SENT OUTon 04-09-20 22 SENT TO REF LAB 04/09/2022 Normal [facility] Comment on above: Performed By: #### RANDALL OLSON #### [facility] [address] [place] [address] Dr. Hardeep Rivera CBC AUTO DIFFon 04-09-2022 BASO # 0.0 103/ul Normal 0.0-0.1 [facility] Comment on above: Performed By: #### RANDALL OLSON #### [facility] [address] [place] [address] Dr. Hardeep Rivera Basophils/100 WBC (Bld) 0.1 % Critically low 0.2-2.0 [facility] Comment on above: Performed By: #### HARI OLSONRO #### [facility] [address] [place] [address] Dr. Hardeep Rivera EO # 0.1 103/ul Normal 0.0-0.7 [facility] Comment on above: Performed By: #### HARI OLSONRO #### [facility] [address] [place] [address] Dr. Hardeep Rivera Eosinophils/100 WBC (Bld) 1.2 % Normal 0.9-7.0 [facility] Comment on above: Performed By: #### HARI OLSONRO #### [facility] [address] [place] [address] Dr. Hardeep Rivera Erythrocyte distribution width (RBC) [Ratio] 12.6 % Normal 11.0-15.0 [facility] Comment on above: Performed By: #### Deedee PINON UMICRO #### [facility] [address] [place] [address] Dr. Hardeep Rivera Hematocrit (Bld) [Volume fraction] 44.1 % Normal 36.0-48.0 [facility] Comment on above: Performed By: #### Deedee PINON UMICRO #### [facility] [address] [place] [address] Dr. Hardeep Rivera Hemoglobin (Bld) [Mass/Vol] 14.1 g/dL Normal 12.0-16.0 [facility] Comment on above: Performed By: #### Deedee PINON UMICRO #### [facility] [address] [place] [address] Dr. Hardeep Rivera IG # 0.02 10e3/ul Normal 0.00-0.03 [facility] Comment on above: Performed By: #### Deedee PINON UMICRO #### [facility] [address] [place] [address] Dr. Hardeep Rivera IG % 0.3 % Normal 0.0-0.5 [facility] Comment on above: Performed By: #### Deedee PINON UMICRO #### [facility] [address] [place] [address] Dr. Hardeep Rivera LYMPH # 0.7 103/ul Critically low 1.2-3.8 [facility] Comment on above: Performed By: #### Deedee PINON UMICRO #### [facility] [address] [place] [address] Dr. Hardeep Rivera Lymphocytes/100 WBC (Bld) 10.8 % Critically low 20.5-60.0 [facility] Comment on above: Performed By: #### Deedee PINON UMICRO #### [facility] [address] [place] [address] Dr. Hardeep Rivera MANUAL DIFF REQ NO Normal [facility] Comment on above: Performed By: #### Deedee PINON UMICRO #### [facility] [address] [place] [address] Dr. Hardeep Rivera MCH (RBC) [Entitic mass] 29.3 pg Normal 26.7-34.0 [facility] Comment on above: Performed By: #### HARI OLSONRO #### [facility] [address] [place] [address] Dr. Hardeep Rivera MCHC (RBC) [Mass/Vol] 32.0 g/dL Normal 29.9-35.2 [facility] Comment on above: Performed By: #### HARI OLSONRO #### [facility] [address] [place] [address] Dr. Hardeep Rivera MCV (RBC) [Entitic vol] 91.7 fL Normal 81.0-99.0 [facility] Comment on above: Performed By: #### HARI OLSONRO #### [facility] [address] [place] [address] Dr. Hardeep Rivera MONO # 0.7 103/ul Normal 0.3-0.8 [facility] Comment on above: Performed By: #### HARI OLSONRO #### [facility] [address] [place] [address] Dr. Hardeep Rivera Monocytes/100 WBC (Bld) 10.8 % Normal 1.7-12.0 [facility] [facility] Comment on above: Performed By: #### HARI OLSONRO #### [facility] [address] [place] [address] Dr. Hardeep Rivera NEUT # 5.2 103/ul Normal 1.4-6.5 [facility] Comment on above: Performed By: #### AKSHAT OLSONICRO #### [facility] [address] [place] [address] Dr. Hardeep Rivera Neutrophils/100 WBC (Bld) 76.8 % Critically high 43.0-75.0 [facility] Comment on above: Performed By: #### HARI OLSONRO #### [facility] [address] [place] [address] Dr. Hardeep Rivera Platelet mean volume (Bld) [Entitic vol] 9.8 fL Normal 9.5-13.5 [facility] Comment on above: Performed By: #### Deedee PINON UMICRO #### [facility] [address] [place] [address] Dr. Hardeep Rivera PLT 200 103/ul Normal 150-450 [facility] Comment on above: Performed By: #### Deedee PINON UMICRO #### [facility] [address] [place] [address] Dr. Hardeep Rivera RBC 4.81 106/ul Normal 4.20-5.40 [facility] Comment on above: Performed By: #### Deedee PINON UMICRO #### [facility] [address] [place] [address] Dr. Hardeep Rivera WBC 6.7 103/ul Normal 4.0-11.0 [facility] Comment on above: Performed By: #### Deedee PINON UMICRO #### [facility] [address] [place] [address] Dr. Hardeep Rivera PROF CHEM 8 (BAS METB)on Anion gap [Moles/Vol] 9.1 mmol/L Normal [facility] Comment on above: Performed By: #### Deedee PINON UMICRO #### [facility] [address] [place] [address] Dr. Hardeep Rivera Calcium [Mass/Vol] 8.3 mg/dL Critically low 8.5-10.1 [facility] Comment on above: Performed By: #### Deedee PINON UMICRO #### [facility] [address] [place] [address] Dr. Hardeep Rivera Chloride [Moles/Vol] 100 mmol/L Normal 98-107 [facility] Comment on above: Performed By: #### Deedee PINON UMICRO #### [facility] [address] [place] [address] Dr. Hardeep Rivera CO2 [Moles/Vol] 28.1 mmol/L Normal 21.0-32.0 [facility] Comment on above: Performed By: #### Deedee PINON UMICRO #### [facility] [address] [place] [address] Dr. Hardeep Rivera Creatinine [Mass/Vol] 1.54 mg/dL Critically high 0.55-1.02 [facility] Comment on above: Performed By: #### HARI OLSONRO #### [facility] [address] [address] [address] Hardeep Rivera EGFR-AF ZIMBABWEAN 40 mL/min/1.73m2 Critically low >=60 [facility] Comment on above: Performed By: #### HARI OLSONRO #### [facility] [address] [address] [address] Hardeep Rivera EGFR-NON AF ZIMBABWEAN 33 mL/min/1.73m2 Critically low >=60 [facility] Comment on above: Performed By: #### HARI OLSONRO #### [facility] [address] [place] [address] Dr. Hardeep Rivera Glucose [Mass/Vol] 122 mg/dL Critically high 74-106 T [facility] Comment on above: Performed By: #### HARI OLSONRO #### [facility] [address] [place] [address] Dr. Hardeep Rivera Potassium [Moles/Vol] 4.2 mmol/L Normal 3.5-5.1 [facility] Comment on above: Performed By: #### HARI OLSONRO #### [facility] [address] [place] [address] Dr. Hardeep Rivera Sodium [Moles/Vol] 133 mmol/L Critically low 136-145 Th [facility] Comment on above: Performed By: #### KASHAT OLSONICRO #### [facility] [address] [place] [address] Dr. Hardeep Rivera Urea nitrogen [Mass/Vol] 28.0 mg/dL Critically high 7.0-18.0 [facility] Comment on above: Performed By: #### AKSHAT OLSONICRO #### [facility] [address] [address] [address] Hardeep Rivera Urea nitrogen/Creatinine [Mass ratio] 18.2 mg/mg Normal [facility] Comment on above: Performed By: #### E RANDALL PINON #### [facility] [address] [address] [address] Hardeep Rivera TACROLIMUS/FK-506 BLon 04-09 Tacrolimus (Bld) [Mass/Vol] 9.9 ng/mL Normal 5.0-20.0 [facility] Comment on above: Order Comment: Speci men Type: BLOOD SPECIMENOrdering Facility: [facility] Address: , , Result Comment: Thes e reference ranges are provided as a general recommendation. Individualized target levels for a given patient will depend on many factors (including the type of organ transplant, time since transplantation, concurrent medications, and other clinical factors), and should be assessed by those health care providers experienced in the management of immunosuppression. Reference ranges and high/low indicator flags are provided as general guidelines only. The treating physician must determine appropriate target levels/dosing based on the specific clinical situation. Test performed by chemiluminescent immunoassay using [place] [employer]. Performed By: #### F K506 ####[facility] [id number] [address] Eduardo 10-10-2021 CNPN Telephone ([facility] SYLVIA HERRERA ([id number]) 1945 F Date Time Provider Department 10/10/21 [facility] During your visit today, we recorded the following information about you: Linden Weems 10/10/2021 11:57 AM Signed Patient had labs drawn today Linden Weems Administrative Registered Veterinary Technician Linden Weems 10/11/2021 10:57 AM Signed Labs uploaded to scanned docs. Linden Weems Administrative Registered Veterinary Technician Loida Mathias APRN.GENERAL LABOR 10/12/2021 12:28 PM Signed Received outside labs drawn 10/10 -- FK 10.1 Cr 1.4 BUN 24 K 4.8 FBS 105 WBC 8300 Hgb 13 Hct 42 Plts 209 Called and left message for patient. Advised if this was a good 12 hr trough, to reduce Tacrolimus to 0.5 mg BID. Repeat labs in 2 weeks. Loida Matihas APRN.CNP October 12, 2021 12:27 PM Loida Mathias APRN.CNP 10/12/2021 12:28 PM Signed Addended by: LOIDA MATHIAS on: 10/12/2021 12:28 PM Modules accepted: Orders Allergies As of Date: 10/10/2021 Noted Allergy Reaction PERCOCET (OXYCODONE-ACETAMINOP HEN)05/18/2014 8 - GI Upset PHENERGAN (PROMETHAZINE HCL) 10/11/2005 14 - Other: See Comments Comments: hallucinations Date Reviewed: 09/02/2019 Reviewed by: Sandrita Guerrero - Fully Assessed Reason for Visit: Heart Transplant Follow Up [1020] Cmt: labs Visit Diagnosis:Heart transplanted (HCC) [Z94.1] Order(s):tacrolimus IR (PROGRAF) 0.5 mg capsuleTake 1 capsule by mouth daily in AM and 1 capsule by mouth daily in PM. 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 No Dr Caldera: Rfl: TACROLIMUS/FK-506 BL [[id number]] Order #: [id number] FUTURE Prescriptions as of 10/12/2021 - tacrolimus IR (PROGRAF) 0.5 mg capsule Take 1 capsule by mouth daily in AM and 1 capsule by mouth daily in PM. 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 No Dr Don - mycophenolate mofetil (CELLCEPT) 250 mg capsule take 2 capsules by mouth every morning and 2 capsules every evening. Z94.1 heart replaced by transplant - amitriptyline (ELAVIL) 10 mg tablet Take 1 tablet by mouth daily at bedtime. - losartan (COZAAR) 100 mg tablet Take 1 tablet by mouth once daily. - magnesium oxide (MAG-OX) 400 mg (241.3 mg magnesium) tablet Take 1 tablet by mouth once daily. - clonazePAM (KLONOPIN) 0.5 mg tablet Take 2 tablets by mouth as needed for up to 180 days. - levothyroxine (SYNTHROID) 88 mcg tablet Take 1 tablet by mouth once daily. - buPROPion XL (WELLBUTRIN XL) 300 mg 24 hr tablet Take 1 tablet by mouth once daily. - simvastatin (ZOCOR) 20 mg tablet Take 1 tablet by mouth daily at bedtime. - Loperamide HCl (IMODIUM) 2 mg tab Take 2 mg by mouth three times daily. - hqubgq-caleyxyf-yktrx se (CREON) 24,000-76,000 -120,000 unit cpDR Take 3 capsules by mouth three times daily with meals. TAKE 3 CAPSULES THREE TIMES A DAY WITH MEALS AND 1 CAPSULE IF HAVING A SNACK - pramipexole (MIRAPEX) 0.25 mg tablet Take 1 tablet by mouth daily at bedtime. - alendronate (FOSAMAX) 70 mg tablet Take 1 tablet by mouth once each week. in the morning with a full glass of water, on an empty stomach, and do not take anything else by mouth or lie down for the next 30 minutes. - acetaminophen 325 mg tablet Take 1-2 tablets by mouth every 4 hours as needed. - omega-3 fatty acids 1,000 mg cap Take 2 capsules by mouth once daily. - Cholecalciferol, Vitamin D3, (VITAMIN D) 1,000 unit Tab Take 1 tablet by mouth once daily. - aspirin(ECOTRIN LOW STRENGTH 81 MG TAB) Take one(1) tablet daily. - MULTIVITAMIN TAB Take one(1) tablet daily. 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] 03/15/2006 08/12/2013 Heart replaced by transplant [Z94.1] 03/19/2006 08/12/2013 Chronic ethmoidal sinusitis [J32.2] 10/30/2007 08/12/2013 Unspecified essential hypertension [I10] 09/02/2019 Unspecified hypothyroidism [E03.9] 05/19/2014 Encounter for long-term (current) use of other *08/26/2008 08/12/2013 SUMMARY [V999.95] 08/10/2013 09/02/2019 Heart transplanted (HCC) [Z94.1] 08/10/2013 Abdominal pain [R10.9] 08/10/2013 05/19/2014 Depression [F32.A] 08/10/2013 08/12/2013 GERD (gastroesophageal reflux disease) [K21.9] 08/10/2013 08/12/2013 History of immunosuppression therapy [Z92.25] 08/11/2013 08/12/2013 Kidney stone [N20.0] 08/11/2013 05/06/2014 Depression [F32.A] 08/12/2013 Hypertension [I10] 08/12/2013 Hypothyroidism [E03.9] 08/12/2013 DVT prophylaxis [Z29.9] 08/17/2013 09/02/2019 Right lower quadrant pain [R10.31] 04/29/2014 09/02/2019 Diabetes mellitus, type II (HCC) [E11.9] 04/29/2014 DREW (acute kidney injury) (HCC) [N17.9] 05/06/2014 05/19/2014 Orthostasis [I95.1] 05/06/2014 05/19/2014 Gastroenteritis [K52.9] 05/18/2014 Right groin pain [R10.31] 05/18/2014 Diarrhea [R19.7] 11/29/2014 09/02/2019 Prophylactic immunotherapy [Z29.8] 11/29/2014 Pneumonia [J18.9] 11/29 (more content not included)... Normal [facility] Tacrolimus / [id number] 09- 021 Tacrolimus / FK506 10.1 ng/mL Normal 5.0-20.0 [facility] Comment on above: Result Comment: Thes e reference ranges are provided as a general recommendation. Individualized target levels for a given patient will depend on many factors (including the type of organ transplant, time since transplantation, concurrent medications, and other clinical factors), and should be assessed by those health care providers experienced in the management of immunosuppression. Reference ranges and high/low indicator flags are provided as general guidelines only. The treating physician must determine appropriate target levels/dosing based on the specific clinical situation. Test performed by chemiluminescent immunoassay using [place] [employer]. Performed By: #### F K506 ####[facility] [place], [place] [id number] Eduardo 09-13-2021 CNPN Telephone ([facility]) SYLVIA HERRERA ([id number]) 1945 F Date Time Provider Department 09/13/21 ARELIS NEWSOME [facility] During your visit today, we recorded the following information about you: Linden Faustina 09/13/2021 2:52 PM Signed S/w pt, due to transportation and financial constraints she is unable to come to [place] for appointments. Patient is working with her case work aide to establish care with a local lunch truck driver (had previously been followed by one in [place]).Dr Rice has agreed and plan going forward will be to do a phone visit with pt on 10/03 and she will follow up in the interim with her local Criminology Professor. Sending pt mailers and lab order, she will get those done as soon as she can. Linden Faustina Administrative Registered Veterinary Technician Allergies As of Date: 09/13/2021 Noted Allergy Reaction PERCOCET (OXYCODONE-ACETAMINOP HEN)05/18/2014 8 - GI Upset PHENERGAN (PROMETHAZINE HCL) 10/11/2005 14 - Other: See Comments Comments: hallucinations Date Reviewed: 09/02/2019 Reviewed by: Sandrita Guerrero - Fully Assessed Reason for Visit: Heart Transplant Follow Up [1020] Cmt: appointment Prescriptions as of 09/13/2021 - mycophenolate mofetil (CELLCEPT) 250 mg capsule take 2 capsules by mouth every morning and 2 capsules every evening. Z94.1 heart replaced by transplant - tacrolimus IR (PROGRAF) 0.5 mg capsule Take 2 capsules by mouth daily in AM and 1 capsule by mouth daily in PM. 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 No Dr Don - amitriptyline (ELAVIL) 10 mg tablet Take 1 tablet by mouth daily at bedtime. - losartan (COZAAR) 100 mg tablet Take 1 tablet by mouth once daily. - magnesium oxide (MAG-OX) 400 mg (241.3 mg magnesium) tablet Take 1 tablet by mouth once daily. - clonazePAM (KLONOPIN) 0.5 mg tablet Take 2 tablets by mouth as needed for up to 180 days. - levothyroxine (SYNTHROID) 88 mcg tablet Take 1 tablet by mouth once daily. - buPROPion XL (WELLBUTRIN XL) 300 mg 24 hr tablet Take 1 tablet by mouth once daily. - simvastatin (ZOCOR) 20 mg tablet Take 1 tablet by mouth daily at bedtime. - Loperamide HCl (IMODIUM) 2 mg tab Take 2 mg by mouth three times daily. - kkhbrz-oxukndil-rgteg se (CREON) 24,000-76,000 -120,000 unit cpDR Take 3 capsules by mouth three times daily with meals. TAKE 3 CAPSULES THREE TIMES A DAY WITH MEALS AND 1 CAPSULE IF HAVING A SNACK - pramipexole (MIRAPEX) 0.25 mg tablet Take 1 tablet by mouth daily at bedtime. - alendronate (FOSAMAX) 70 mg tablet Take 1 tablet by mouth once each week. in the morning with a full glass of water, on an empty stomach, and do not take anything else by mouth or lie down for the next 30 minutes. - acetaminophen 325 mg tablet Take 1-2 tablets by mouth every 4 hours as needed. - omega-3 fatty acids 1,000 mg cap Take 2 capsules by mouth once daily. - Cholecalciferol, Vitamin D3, (VITAMIN D) 1,000 unit Tab Take 1 tablet by mouth once daily. - aspirin(ECOTRIN LOW STRENGTH 81 MG TAB) Take one(1) tablet daily. - MULTIVITAMIN TAB Take one(1) tablet daily. 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] 03/15/2006 08/12/2013 Heart replaced by transplant [Z94.1] 03/19/2006 08/12/2013 Chronic ethmoidal sinusitis [J32.2] 10/30/2007 08/12/2013 Unspecified essential hypertension [I10] 09/02/2019 Unspecified hypothyroidism [E03.9] 05/19/2014 Encounter for long-term (current) use of other *08/26/2008 08/12/2013 SUMMARY [V999.95] 08/10/2013 09/02/2019 Heart transplanted (HCC) [Z94.1] 08/10/2013 Abdominal pain [R10.9] 08/10/2013 05/19/2014 Depression [F32.A] 08/10/2013 08/12/2013 GERD (gastroesophageal reflux disease) [K21.9] 08/10/2013 08/12/2013 History of immunosuppression therapy [Z92.25] 08/11/2013 08/12/2013 Kidney stone [N20.0] 08/11/2013 05/06/2014 Depression [F32.A] 08/12/2013 Hypertension [I10] 08/12/2013 Hypothyroidism [E03.9] 08/12/2013 DVT prophylaxis [Z29.9] 08/17/2013 09/02/2019 Right lower quadrant pain [R10.31] 04/29/2014 09/02/2019 Diabetes mellitus, type II (HCC) [E11.9] 04/29/2014 DREW (acute kidney injury) (HCC) [N17.9] 05/06/2014 05/19/2014 Orthostasis [I95.1] 05/06/2014 05/19/2014 Gastroenteritis [K52.9] 05/18/2014 Right groin pain [R10.31] 05/18/2014 Diarrhea [R19.7] 11/29/2014 09/02/2019 Prophylactic immunotherapy [Z29.8] 11/29/2014 Pneumonia [J18.9] 11/29/2014 09/02/2019 Delirium [R41.0] 12/03/2014 09/02/2019 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] 12/03/2014 09/02/2019 DREW (acute kidney injury) (HCC) [N17.9] 12/03/2014 Anxiety disorder [F41.9] 07/05/2015 Pain [R52] 11/14/2017 09/02/2019 Letter Text Letter Text Encounter Status:Closed by LINDEN WEEMS on 09/13/21 [facility] OBSOLETEon 09-12-2021 OBSOLETE Refill ([facility] ) SYLVIA HERRERA ([id number]) 1945 F Date Time Provider Department 09/12/21 SANDRITA GUERRERO [facility] During your visit today, we recorded the following information about you: Allergies As of Date: 09/12/2021 Noted Allergy Reaction PERCOCET (OXYCODONE-ACETAMINOP HEN)05/18/2014 8 - GI Upset PHENERGAN (PROMETHAZINE HCL) 10/11/2005 14 - Other: See Comments Comments: hallucinations Date Reviewed: 09/02/2019 Reviewed by: Sandrita Guerrero - Fully Assessed Order(s):mycophenolat e mofetil (CELLCEPT) 250 mg capsuletake 2 capsules by mouth every morning and 2 capsules every evening. Z94.1 heart replaced by transplantDisp: 360 capsuleRfl: 3 Prescriptions as of 09/12/2021 - mycophenolate mofetil (CELLCEPT) 250 mg capsule take 2 capsules by mouth every morning and 2 capsules every evening. Z94.1 heart replaced by transplant - tacrolimus IR (PROGRAF) 0.5 mg capsule Take 2 capsules by mouth daily in AM and 1 capsule by mouth daily in PM. 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 No Dr Don - amitriptyline (ELAVIL) 10 mg tablet Take 1 tablet by mouth daily at bedtime. - losartan (COZAAR) 100 mg tablet Take 1 tablet by mouth once daily. - magnesium oxide (MAG-OX) 400 mg (241.3 mg magnesium) tablet Take 1 tablet by mouth once daily. - clonazePAM (KLONOPIN) 0.5 mg tablet Take 2 tablets by mouth as needed for up to 180 days. - levothyroxine (SYNTHROID) 88 mcg tablet Take 1 tablet by mouth once daily. - buPROPion XL (WELLBUTRIN XL) 300 mg 24 hr tablet Take 1 tablet by mouth once daily. - simvastatin (ZOCOR) 20 mg tablet Take 1 tablet by mouth daily at bedtime. - Loperamide HCl (IMODIUM) 2 mg tab Take 2 mg by mouth three times daily. - xfmrvm-loocalqi-dvhcs se (CREON) 24,000-76,000 -120,000 unit cpDR Take 3 capsules by mouth three times daily with meals. TAKE 3 CAPSULES THREE TIMES A DAY WITH MEALS AND 1 CAPSULE IF HAVING A SNACK - pramipexole (MIRAPEX) 0.25 mg tablet Take 1 tablet by mouth daily at bedtime. - alendronate (FOSAMAX) 70 mg tablet Take 1 tablet by mouth once each week. in the morning with a full glass of water, on an empty stomach, and do not take anything else by mouth or lie down for the next 30 minutes. - acetaminophen 325 mg tablet Take 1-2 tablets by mouth every 4 hours as needed. - omega-3 fatty acids 1,000 mg cap Take 2 capsules by mouth once daily. - Cholecalciferol, Vitamin D3, (VITAMIN D) 1,000 unit Tab Take 1 tablet by mouth once daily. - aspirin(ECOTRIN LOW STRENGTH 81 MG TAB) Take one(1) tablet daily. - MULTIVITAMIN TAB Take one(1) tablet daily. 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] 03/15/2006 08/12/2013 Heart replaced by transplant [Z94.1] 03/19/2006 08/12/2013 Chronic ethmoidal sinusitis [J32.2] 10/30/2007 08/12/2013 Unspecified essential hypertension [I10] 09/02/2019 Unspecified hypothyroidism [E03.9] 05/19/2014 Encounter for long-term (current) use of other *08/26/2008 08/12/2013 SUMMARY [V999.95] 08/10/2013 09/02/2019 Heart transplanted (HCC) [Z94.1] 08/10/2013 Abdominal pain [R10.9] 08/10/2013 05/19/2014 Depression [F32.A] 08/10/2013 08/12/2013 GERD (gastroesophageal reflux disease) [K21.9] 08/10/2013 08/12/2013 History of immunosuppression therapy [Z92.25] 08/11/2013 08/12/2013 Kidney stone [N20.0] 08/11/2013 05/06/2014 Depression [F32.A] 08/12/2013 Hypertension [I10] 08/12/2013 Hypothyroidism [E03.9] 08/12/2013 DVT prophylaxis [Z29.9] 08/17/2013 09/02/2019 Right lower quadrant pain [R10.31] 04/29/2014 09/02/2019 Diabetes mellitus, type II (HCC) [E11.9] 04/29/2014 DREW (acute kidney injury) (HCC) [N17.9] 05/06/2014 05/19/2014 Orthostasis [I95.1] 05/06/2014 05/19/2014 Gastroenteritis [K52.9] 05/18/2014 Right groin pain [R10.31] 05/18/2014 Diarrhea [R19.7] 11/29/2014 09/02/2019 Prophylactic immunotherapy [Z29.8] 11/29/2014 Pneumonia [J18.9] 11/29/2014 09/02/2019 Delirium [R41.0] 12/03/2014 09/02/2019 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 Z94.1 heart replaced by transplant Medications Discontinued During This Encounter Prescriptions - mycophenolate mofetil (CELLCEPT) 250 mg capsule (Discontinued) take 2 capsules by mouth every morning and 2 capsules every evening. Z94.1 heart replaced by transplant Encounter Status:Closed by SANDRITA GUERRERO on 09/12/21 Normal [facility] Vital Signs Date Time Vital Sign Value Performing Clinician Dami charles 04-08-2023 06:45-0400 Diastolic blood pressure 76 mm[Hg] YouFolio [facility] 04-08-2023 06:45-0400 Heart rate 59 /min YouFolio [facility] 04-08-2023 06:45-0400 Hourly Rounding Richard Open Home [facility] 04-08-2023 06:45-0400 Mean blood pressure 106 mm[Hg] Richard Roby [facility] 04-08-2023 06:45-0400 Respiratory rate 18 /min Richard Roby [facility] 04-08-2023 06:45-0400 SaO2% (BldA) [Mass fraction] 96 % Richard Roby [facility] 04-08-2023 06:45-0400 Systolic blood pressure 167 mm[Hg] Richard Roby [facility] 04-08-2023 05:30-0400 Diastolic blood pressure 88 mm[Hg] Richard Roby [facility] 04-08-2023 05:30-0400 Heart rate 52 /min Richard Roby [facility] 04-08-2023 05:30-0400 Hourly Rounding Richard Roby [facility] 04-08-2023 05:30-0400 Mean blood pressure 114 mm[Hg] Richard Roby [facility] 04-08-2023 05:30-0400 Respiratory rate 18 /min Richard Roby [facility] 04-08-2023 05:30-0400 SaO2% (BldA) [Mass fraction] 95 % Richard Rboy [facility] 04-08-2023 05:30-0400 Systolic blood pressure 167 mm[Hg] Richard Roby [facility] 04-08-2023 04:39-0400 Diastolic blood pressure 90 mm[Hg] Richard Roby [facility] 04-08-2023 04:39-0400 Heart rate 56 /min Richard Roby [facility] 04-08-2023 04:39-0400 Hourly Rounding Richard Roby [facility] 04-08-2023 04:39-0400 Mean blood pressure 112 mm[Hg] Richard Roby [facility] 04-08-2023 04:39-0400 Respiratory rate 17 /min Richard Roby [facility] 04-08-2023 04:39-0400 SaO2% (BldA) [Mass fraction] 94 % Richard Roby [facility] 04-08-2023 04:39-0400 Systolic blood pressure 155 mm[Hg] Richard Roby [facility] 04-07-2023 21:48-0400 Respiratory rate 18 /min Richard Roby [facility] 04-07-2023 21:19-0400 Body temperature 98.06 [degF] Richard Roby [facility] 04-07-2023 21:19-0400 Heart rate 65 /min Richard Roby [facility] 04-07-2023 21:19-0400 Respiratory rate 19 /min Richard Roby [facility] Encounters Encounter Date Encounter Type Care Provider Facility Start: 11-12-2023 End: 11-12-2023 ambulatory [facility] Start: 08-07-2023 End: 08-07-2023 ambulatory [facility] Start: 04-07-2023 End: 04-08-2023 Emergency department patient visit Richardchaya Low Roby Facility:[facility] Start: 04-07-2023 End: 04-08-2023 Emergency department patient visit Richard Ca [facility] Start: 03-05-2023 End: 03-05-2023 ambulatory DUYEN ROGERS Facility:[facility] Start: 02-26-2023 End: 02-27-[address] ANISHA DINH Facility:[facility] Start: 02-14-2023 End: 02-14-2023 ambulatory NANCY REYES . Facility:[facility] Start: 02-13-2023 End: 02-14-2023 ambulatory DUYEN ROGERS Facility:[facility] Start: 02-11-2023 End: 02-12-2023 ambulatory [facility] Start: 02-09-2023 End: 02-10-[address] ANISHA DINH Facility:H1 Start: 01-09-2023 End: 01-10-[address] TAO ROONEY . Facility:H1 Start: 01-07-2023 End: 01-07-2023 ambulatory [facility] Start: 12-13-2022 End: 12-14-2022 ambulatory DUYEN ROGERS Facility:H1 Start: 12-11-2022 End: 12-12-[address] TAO ROOENY . Facility:H1 Start: 11-14-2022 End: 11-14-2022 ambulatory DUYEN ROGERS Facility:H1 Start: 10-03-2022 End: 10-03-2022 ambulatory DUYEN ROGERS Facility:H1 Start: 09-08-2022 Refill Sandrita Guerrero APRN.GENERAL LABOR Work Phone: Cardiology Comment on above: Refill Request Start: 08-04-2022 End: 08-04-2022 ambulatory NANCY REYES . Facility:H1 Start: 08-02-2022 Telephone encounter Loida Mathias APRN.CNP Work Phone: Cardiology Comment on above: Heart Transplant Fol low Up (Labs/) Start: 08-02-2022 End: 08-03-[address] TAO ROONEY . Facility:H1 Start: 07-27-[address] TAO ROONEY . Facili ty:H1 Start: 07-17-2022 End: 07-18-2022 ambulatory [facility] Facility:[facility] Start: 07-16-2022 End: 07-17-2022 ambulatory [facility] Facility:[facility] Start: 07-16-2022 End: 07-16-2022 Patient encounter procedure [facility] Start: 07-12-2022 End: 07-13-2022 ambulatory [facility] Start: 07-05-2022 Telephone encounter Sho Crowley APRN.GENERAL LABOR Work Phone: Cardiology Comment on above: Heart Transplant Fol low Up; Lab Meeting Start: 07-03-2022 Telephone encounter Soy Mccann RN Ca rdiology Comment on above: Heart Transplant Fol low Up (labs) Start: 07-03-2022 End: 07-04-[address] TAO ROONEY . Facility:H1 Start: 05-28-2022 End: 05-29-[address] TAO ROONEY . Facility:H1 Start: 05-23-2022 ambulatory [facility] Facility: [facility] Start: 05-08-2022 Telephone encounter Loida Mathias APRN.GENERAL LABOR Work Phone: Cardiology Comment on above: Heart Transplant Fol low Up (labs) Start: 05-07-2022 End: 05-08-[address] TAO ROONEY . Facility: Start: 04-24-2022 Telephone encounter Loida Mathias APRN.GENERAL LABOR Work Phone: Cardiology Comment on above: Heart Transplant Fol low Up Start: 04-24-2022 End: 04-25-[address] TAO ROONEY . Facility:[facility]1 Start: 04-20-[address] TAO ROONEY . Facili ty:H1 Start: 04-11-2022 ambulatory Loida fontaine APRN.GENERAL LABOR Work Phone: [facility] Start: 04-11-2022 Follow-up encounter Loida Mathias APRN.GENERAL LABOR Work Phone: Cardiology Comment on above: Heart Transplant Fol low Up (Labs) Start: 04-09-2022 End: 04-10-[address] TAO ROONEY . Facility: Start: 04-06-2022 Orders Only Loida fontaine APRN.GENERAL LABOR Work Phone: Cardiology Comment on above: Heart replaced by tr ansplant (HCC) (Primary Dx) Start: 04-04-2022 Refill Loida fontaine APRN.GENERAL LABOR Work Phone: Cardiology Comment on above: Rx Refills Start: 10-03-2021 End: 10-03-2021 ambulatory NICOLETTE RICE [facility] Procedures Date Procedure Procedure Detail Performing Clinician Start: 08-10-2013 H/O: heart recipient Heart transplan arianna Loida Mathias APRN.GENERAL LABOR Work Phone: H/O: heart recipient Heart transplanted ( HCC) Loida Bishopo ENTERPRISE SALES 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 LABOR Work Phone: H/O: heart recipient Heart repla nitish by transplant (HCC) Loida Woodmmarino ENTERPRISE SALES 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 LABOR Work Phone: H/O: heart recipient Heart transplanted ( HCC) Loida Gustafsonrino ENTERPRISE SALES 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 LABOR Work Phone: H/O: heart recipient Heart transplanted ( HCC) Loida Woodmmarino ENTERPRISE SALES 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 LABOR Work Phone: H/O: heart recipient Heart transplanted ( HCC) Sho Crowley ENTERPRISE SALES 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 LABOR Work Phone: H/O: heart recipient Hx of heart transplant( Confirmed ) Eddie JAMA Plan of Treatment Date Care Activity Detail Author Start: 08-02-2022 Influenza vaccination INFLUENZA (#1) Start: 07-19-2022 End: 09-18-2022 Tacrolimus [Mass/volume] in Blood TACROLIMUS/FK-506 BL Lab Routine Heart transplanted (HCC) Expected: 07/19/2022 (Approximate), Expires: 09/18/2022 [facility] Work Phone: Comment on above: Expected: 07/19/2022 (Approximate), Expires: 09/18/2022 Start: 05-21-2022 End: 07-21-2022 TACROLIMUS/FK-506 BL TACROLIMUS/FK-506 BL Lab Routine Heart transplanted (HCC) Expected: 05/21/2022, Expires: 07/21/2022 [facility] Work Phone: Comment on above: Expected: 05/21/2022 , Expires: 07/21/2022 Start: 04-23-2022 End: 06-23-2022 TACROLIMUS/FK-506 BL TACROLIMUS/FK-506 BL Lab Routine Heart transplanted (HCC) Expected: 04/23/2022, Expires: 06/23/2022 [facility] Work Phone: Comment on above: Expected: 04/23/2022 , Expires: 06/23/2022 Start: 04-09-2022 End: 06-09-2022 CBC W Auto Differential panel - Blood CBC + DIFF Lab Routine Heart replaced by transplant (HCC) Expected: 04/09/2022, Expires: 06/09/2022 [facility] Work Phone: Comment on above: Expected: 04/09/2022 , Expires: 06/09/2022 Start: 04-09-2022 End: 06-09-2022 Comprehensive metabolic 2000 panel - Serum or Plasma COMP METABOLIC PANEL Lab Routine Heart replaced by transplant ([facility]) Expected: 04/09/2022, Expires: 06/09/2022 [facility] Work Phone: Comment on above: Expected: 04/09/2022 , Expires: 06/09/2022 Start: 04-09-2022 End: 04-06-2023 HEART/LUNG REC POST TX DSA HEART/LUNG REC POST TX DSA ALLOGEN Routine Heart replaced by transplant ([facility]) Expected: 04/09/2022, Expires: 04/06/2023 [facility] Work Phone: Comment on above: Expected: 04/09/2022 , Expires: 04/06/2023 Start: 04-09-2022 End: 06-09-2022 LIPID PANEL BASIC LIPID PANEL BASIC Lab Routine Heart replaced by transplant ([facility]) Expected: 04/09/2022, Expires: 06/09/2022 [facility] Work Phone: Comment on above: Expected: 04/09/2022 , Expires: 06/09/2022 Start: 04-09-2022 End: 06-09-2022 Magnesium [Mass/volume] in Serum or Plasma MAGNESIUM BLD Lab Routine Heart replaced by transplant ([facility]) Expected: 04/09/2022, Expires: 06/09/2022 [facility] Work Phone: Comment on above: Expected: 04/09/2022 , Expires: 06/09/2022 Start: 04-09-2022 End: 06-09-2022 TACROLIMUS/FK-506 BL TACROLIMUS/FK-506 BL Lab Routine Heart replaced by transplant ([facility]) Expected: 04/09/2022, Expires: 06/09/2022 [facility] Work Phone: Comment on above: Expected: 04/09/2022 , Expires: 06/09/2022 Start: 04-09-2022 End: 06-09-2022 URINALYSIS, DIPSTICK ONLY URINALYSIS, DIPSTICK ONLY Lab Routine Heart replaced by transplant ([facility]) Expected: 04/09/2022, Expires: 06/09/2022 [facility] Work Phone: Comment on above: Expected: 04/09/2022 , Expires: 06/09/2022 Start: 12-02-2021 ADVANCE DIRECTIVE DISCUSSION ADVANCE DIRECTIVE DISCUSSION Start: 09-26-2021 COVID-19 VACCINE (3 - Pfizer risk 4-dose series) COVID-19 VACCINE (3 - Pfizer risk 4-dose series) Start: 09-26-2021 COVID-19 VACCINE (3 - Pfizer risk series) COVID-19 VACCINE (3 - Pfizer risk series) Start: 03-04-2020 Hepatitis B surface antibody level LDL CHOLESTEROL Start: 06-14-2015 Hemoglobin A1c/Hemoglobin.total in Blood HBA1C Start: 11-01-2013 PNEUMOCOCCAL: 65+ (3 - PCV) PNEUMOCOCCAL: 65+ (3 - PCV) Start: 2009 ADULT PREVNAR ADULT PREVNAR [facility] Start: 1994 SHINGRIX VACCINE (1 of 2) SHINGRIX VACCINE (1 of 2) Start: 1963 SHINGRIX VACCINE (1 of 2) SHINGRIX VACCINE (1 of 2) Start: 1963 Urine microalbumin profile DTAP,TDAP,TD (1 - Tdap) Start: 1962 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 DISEASE VISIT ANNUAL PCP TEAM CHRONIC DISEASE VISIT Start: 1962 BP CONTROLLED (<130/80) BP CONTROLLE D (<130/80) Start: 1954 3 comp foot exam completed DIABETIC FOOT EXAM Start: 1954 Hepatitis B screening URINE ALBUMIN:CREATININE RATIO Start: 1954 Hepatitis C antibody , confirmatory test DILATED RETINAL EXAM Start: 1950 PNEUMOCOCCAL: 65+ (1 - PCV) PNEUMOCOCCAL: 65+ (1 - PCV) [facility] Immunizations Immunization Date Immunization Notes Care Provider Fa cility 06-05-2022 SARS-CoV-2 mRNA ([id number] se) vaccine Morgan SALAM [facility] 08-29-2021 SARS-CoV-2 (COVID-19 ) mRNA BNT-162b2 vax Morgan SALAM [facility] 08-02-2021 SARS-CoV-2 (COVID-19 ) mRNA BNT-162b2 vax Morgan SALAM [facility] 07-05-2021 influenza virus vaccine, unspecified formulation Morgan SALAM [facility] 09-29-2020 influenza, unspecifi ed formulation Morgan SALAM [facility] 07-24-2020 influenza virus vaccine, unspecified formulation Morgan SALAM [facility] 09-02-2017 influenza virus vaccine, unspecified formulation Morgan SALAM [facility] 08-07-2017 pneumococcal conjuga te vaccine, 13 valent Morgan SALAM [facility] 08-14-2016 influenza virus vaccine, unspecified formulation Morgan SALAM [facility] 09-29-2015 pneumococcal conjuga te vaccine, 13 valent Morgan SALAM [facility] 08-04-2015 influenza virus vaccine, unspecified formulation Morgan SALAM [facility] 09-15-2014 influenza virus vaccine, whole virus Loida Iammarino ENTERPRISE SALES PERSON.[facility] Work Phone: 09-15-2014 influenza, whole Morgan SALAM [facility] 11-01-2012 pneumococcal polysaccharide vaccine, 23 valent Loida Iammarino ENTERPRISE SALES PERSON.[facility] Work Phone: 12-28-2009 novel [id number], all formulations Loida Iammarino 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 SALES 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 LABOR Work Phone: Work Phone: 08-19-2009 influenza virus vaccine, unspecified formulation Loida Iammarino ENTERPRISE SALES 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 LABOR Work Phone: 09-01-2006 influenza virus vaccine, unspecified formulation Loida Iammarino ENTERPRISE SALES 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 LABOR Work Phone: Work Phone: 09-01-2006 pneumococcal polysaccharide vaccine, 23 valent Loida Iammarino ENTERPRISE SALES 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 LABOR Work Phone: Work Phone: NEGATED: Highlighted row has not occurred!07-12-2022 influenza virus vaccine, unspecified formulation Morgan SALAM [facility] Payers Date Payer Category Payer Medicare UHC MEDICARE UHC DUAL COMPLETE HMO SNP [id number] 2022-Present [phone] [address] [place] [address] Medicare [id number] 2022 Medicare UHC MEDICARE UHC DUAL COMPLETE HMO SNP [id number] 2022-Present [phone] [address] [place] [address] Medicare [id number] 2020 Unknown [id number] 1959 Medicaid [id number] 1959 Medicare [id number] 1959 Self-pay [id number] 1959 Unknown [id number] 1944 Unknown [id number] [id number]3 1944 Unknown [id number] 2.16.840.1.013034.3.579.2.593 1944 Unknown [id number] 2.16.840.1.047002.3.579.2.593 1944 Unknown [id number] 2.16.840.1.172842.3.579.2.593 1944 Unknown [id number] 2.16.840.1.902209.3.579.2.593 1944 Unknown [id number] 2.16.840.1.295295.3.579.2.593 1944 Unknown [id number] 2.16.840.1.242790.3.579.2.593 1944 Unknown [id number] 2.16.840.1.422389.3.579.2.593 1944 Unknown [id number] 2.16.840.1.687976.3.579.2.593 1944 Unknown [id number] 2.16.840.1.437208.3.579.2.593 1944 Unknown [id number] 2.16.840.1.058704.3.579.2.593 1944 Unknown [id number] 2.16.840.1.278261.3.579.2.593 1944 Unknown [id number] 2.16.840.1.787344.3.579.2.593 1944 Unknown [id number] 2.16.840.1.861077.3.579.2.593 1944 Unknown [id number] 2.16.840.1.592587.3.579.2.593 1944 Unknown [id number] 2.16.840.1.002176.3.579.2.593 1944 Unknown [id number] 2.16.840.1.884345.3.579.2.593 1944 Unknown [id number] 2.16.840.1.190829.3.579.2.593 1944 Unknown [id number] 2.16.840.1.983003.3.579.2.727 1944 Unknown [id number] 2.16.840.1.861368.3.579.2.727 1944 Unknown [id number] 2.16.840.1.052885.3.579.2.727 1944 Unknown [id number] 2.16.840.1.702975.3.579.2.727 1944 Unknown [id number] 2.16.840.1.735806.3.579.2.727 Unknown [id number] 2.16.840.1.604076.3.579.2.593 Social History Date Type Detail Facility Start: 05-13-2019 Tobacco smoking stat us NHIS Ex-smoker Work Phone: History of tobacco use Cigarette Smoker C 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 Start: 07-12-2022 Never smoked t obacco (finding) [facility] Never [facility] Female [facility] History of tobacco use Current smoker [facility] Start: 05-13-2019 Cigarettes smoked current (pack per day) - Reported 0.3 Start: 05-13-2019 Tobacco use and exposure Smokeless tobacco non-user Functional Status Date Assessment Result Facility 04-07-2023 Functional Status N/A [facility] Clinical Notes 11-14-2017 to 11-12-2023 Note Date & Type Note Facility 11-12-2023 Note [facility] Subjective Sylvia Herrera is a 77 y.o. year old female patient being seen for 3 mo follow up hypertension and hx of heart transplantation. Tacrolimus was increased to 1mg bid on 10/28/2023. She will have repeat level drawn on 11/18/2023. Had stress test in Aug 2023 after last apt. Gets SOB with rest at times. Denies chest pain and LE edema. Did have an episode of a heart skip with lightheadedness recently. Only lasted a few seconds but scared her. Patient Active Problem List Diagnosis Nonischemic congestive cardiomyopathy (CMS/HCC) Anxiety Hypertensive disorder Hypothyroidism Right bundle branch block Status post heart transplantation (CMS/HCC) DREW (acute kidney injury) (CMS/HCC) Anemia Chronic diarrhea Acute renal failure (CMS/HCC) CKD (chronic kidney disease) Depressive disorder Diabetes mellitus, type II (CMS/HCC) Diarrhea in adult patient Diverticulosis of large intestine without hemorrhage Duodenitis Gastroenteritis High anion gap metabolic acidosis Hypokalemia Hypomagnesemia Left upper quadrant abdominal pain Leukocytosis Mood disorder due to a general medical condition Nausea and vomiting Pancreatic insufficiency Prophylactic immunotherapy Right groin pain Severe malnutrition (CMS/HCC) Generalized anxiety disorder Hypertension Coronary heart disease Valvular heart disease Family History Family history unknown: Yes Social History Tobacco Use Smoking status: Never Smokeless tobacco: Never Substance Use Topics Alcohol use: Not Currently Drug use: Never HPI Visit of 10/30/2021: Sylvia is seen as a new patient. She is a 75-year-old woman with prior history of nonischemic cardiomyopathy, status post LVAD placement in the past and followed by cardiac transplantation on 01/18/2006. Prior to transplantation she was supported with an LVAD HeartMate 2 that was explanted in 2004. She received IV Thymoglobulin for elevated PRA's pretransplant. She required mediastinal reexploration post transplant x2 for bleeding. Preop EBV IgG positive, herpes simplex IgG positive, varicella-zoster antibody positive. Pneumovax done 11/09/2005. She underwent previously emergency laparoscopic cholecystectomy in 2007. She is followed by the [facility] cardiology service. She has had no history of rejection according to the record. Her immunosuppression regimen includes mycophenolate mofetil 500 mg twice daily and tacrolimus 0.5 mg capsule 2 capsules in the morning and 1 capsule in the evening. Due to recent tacrolimus level the tacrolimus was reduced to 0.5 mg twice daily. She has prior history of hypothyroidism on replacement. Her TSH in 2019 was within normal limits. She has CKD stage IIIb. She also has pancreatic exocrine insufficiency diagnosed in 2016 when she was hospitalized with diarrhea, dehydration and DREW, and is on Creon treatment. She has history of Thrombocytopenia and was evaluated by hematology on 03/18/19 and it was felt that it was laboratory abnormality and did not represent true thrombocytopenia. She had EGD (showed bulbar and apical erososions) and Colonoscopy 12/2016 (sigmoid diverticulosis) In addition she currently takes aspirin 81 mg daily, losartan 100 mg daily, simvastatin 20 mg daily. Today she reports that she has been doing well. No chest pain, no shortness of breath, no lower extremity edema. No palpitations. She has occasional mild lightheadedness. Her blood pressure is elevated today. She reports that her blood pressure at home is usually controlled with a systolic ranging from 120 to 130 mmHg. Prior testing: Blood testing 10/10/2021: Tacrolimus 10.1 ng/mL [5-20 ng/mL]. Blood testing 10/10/2021: Hemoglobin 13.8, platelets 209. Potassium 4.8, BUN 24, creatinine 1.45, GFR 35. Blood testing 07/12/2021: BUN 19, creatinine 1.33, GFR 39, cholesterol 94, HDL 43, triglycerides 71, LDL 37. Hemoglobin A1c 5.2%, TSH 1.06. Additional history according to the prior record: Dobutamine echocardiogram 12/28/2011: Negative for ischemia, resting LVEF 64%. Cath 12/26/2010: Normal coronary arteries. Echocardiogram 06/27/2011: LVEF 65%, normal RV size and systolic function, no significant valvular abnormality. Cardiac Catheterization ( 11/14/17) Normal coronary arteries and filling pressures. [Use LEFT groin for caths] Echocardiogram (11/14/17) left ventricle is normal in size. Left ventricular systolic function is hyperdynamic. EF = 75 ?? 5% (visual est.) Left ventricular diastolic function was not evaluated due to heart transplant. The right ventricle is normal in size. Right ventricular systolic function is low normal. Suspect prominent TV pap muscle (clip 110). The left atrial cavity is dilated. There are no significant valvular abnormalities. Exam was compared with the prior echocardiographic exam performed on 11/19/16. Similar findings. Nuclear Stress Testing (1 (more content not included)... [facility] 10-28-2023 Note [facility] 08-07-2023 Note [facility] Subjective Sylvia Herrera is a 77 y.o. year old female patient being seen for Follow-up (6 mo f/u/no stress test or tacrolimus result as of 08/06 - /does she plan on having stress test?) Patient Active Problem List Diagnosis Nonischemic congestive cardiomyopathy (CMS/HCC) Anxiety Hypertensive disorder Hypothyroidism Right bundle branch block Status post heart transplantation (CMS/HCC) DREW (acute kidney injury) (CMS/HCC) Anemia Chronic diarrhea Acute renal failure (CMS/HCC) CKD (chronic kidney disease) Depressive disorder Diabetes mellitus, type II (CMS/HCC) Diarrhea in adult patient Diverticulosis of large intestine without hemorrhage Duodenitis Gastroenteritis High anion gap metabolic acidosis Hypokalemia Hypomagnesemia Left upper quadrant abdominal pain Leukocytosis Mood disorder due to a general medical condition Nausea and vomiting Pancreatic insufficiency Prophylactic immunotherapy Right groin pain Severe malnutrition (CMS/HCC) Generalized anxiety disorder Hypertension Family History Family history unknown: Yes Social History Tobacco Use Smoking status: Never Smokeless tobacco: Never Substance Use Topics Alcohol use: Not Currently Drug use: Never HPI Visit of 10/30/2021: Sylvia is seen as a new patient. She is a 75-year-old woman with prior history of nonischemic cardiomyopathy, status post LVAD placement in the past and followed by cardiac transplantation on 01/18/2006. Prior to transplantation she was supported with an LVAD HeartMate 2 that was explanted in 2004. She received IV Thymoglobulin for elevated PRA's pretransplant. She required mediastinal reexploration post transplant x2 for bleeding. Preop EBV IgG positive, herpes simplex IgG positive, varicella-zoster antibody positive. Pneumovax done 11/09/2005. She underwent previously emergency laparoscopic cholecystectomy in 2007. She is followed by the [facility] cardiology service. She has had no history of rejection according to the record. Her immunosuppression regimen includes mycophenolate mofetil 500 mg twice daily and tacrolimus 0.5 mg capsule 2 capsules in the morning and 1 capsule in the evening. Due to recent tacrolimus level the tacrolimus was reduced to 0.5 mg twice daily. She has prior history of hypothyroidism on replacement. Her TSH in 2019 was within normal limits. She has CKD stage IIIb. She also has pancreatic exocrine insufficiency diagnosed in 2016 when she was hospitalized with diarrhea, dehydration and DREW, and is on Creon treatment. She has history of Thrombocytopenia and was evaluated by hematology on 03/18/19 and it was felt that it was laboratory abnormality and did not represent true thrombocytopenia. She had EGD (showed bulbar and apical erososions) and Colonoscopy 12/2016 (sigmoid diverticulosis) In addition she currently takes aspirin 81 mg daily, losartan 100 mg daily, simvastatin 20 mg daily. Today she reports that she has been doing well. No chest pain, no shortness of breath, no lower extremity edema. No palpitations. She has occasional mild lightheadedness. Her blood pressure is elevated today. She reports that her blood pressure at home is usually controlled with a systolic ranging from 120 to 130 mmHg. Prior testing: Blood testing 10/10/2021: Tacrolimus 10.1 ng/mL [5-20 ng/mL]. Blood testing 10/10/2021: Hemoglobin 13.8, platelets 209. Potassium 4.8, BUN 24, creatinine 1.45, GFR 35. Blood testing 07/12/2021: BUN 19, creatinine 1.33, GFR 39, cholesterol 94, HDL 43, triglycerides 71, LDL 37. Hemoglobin A1c 5.2%, TSH 1.06. Additional history according to the prior record: Dobutamine echocardiogram 12/28/2011: Negative for ischemia, resting LVEF 64%. Cath 12/26/2010: Normal coronary arteries. Echocardiogram 06/27/2011: LVEF 65%, normal RV size and systolic function, no significant valvular abnormality. Cardiac Catheterization ( 11/14/17) Normal coronary arteries and filling pressures. [Use LEFT groin for caths] Echocardiogram (11/14/17) left ventricle is normal in size. Left ventricular systolic function is hyperdynamic. EF = 75 ?? 5% (visual est.) Left ventricular diastolic function was not evaluated due to heart transplant. The right ventricle is normal in size. Right ventricular systolic function is low normal. Suspect prominent TV pap muscle (clip 110). The left atrial cavity is dilated. There are no significant valvular abnormalities. Exam was compared with the prior echocardiographic exam performed on 11/19/16. Similar findings. Nuclear Stress Testing (09/02/19): 1. SPECT Perfusion Study: Normal. 2. There is no scintigraphic evidence for inducible ischemia. 3. No evidence of scarred myocardium. 4. Functional capacity N/A (pharmacological). 5. Left ventricle is normal in size. The left ventricle systolic function is normal. 6. This is a low risk scan. Gated St (more content not included)... [facility] 07-23-2023 Note ta [facility] 04-08-2023 Hospital Discharge instructions Patient Education 04/08/2023 08:56:02 Hyponatremia Hyponatremia Hyponatremia is when the amount of salt (sodium) in a person's blood is too low. When sodium levels are low, the cells absorb extra water, which causes them to swell. The swelling happens throughout the body, but it mostly affects the brain. What are the causes? This condition may be caused by: Certain medical conditions, such as: ?Heart, kidney, or liver problems. ?Thyroid problems. ?Adrenal gland problems. ?Metabolic conditions, such as [place] [employer]'s disease or syndrome of inappropriate antidiuresis (SIAD). Excessive vomiting, diarrhea, or sweating. Certain medicines or illegal drugs. Fluids given through an IV. What increases the risk? You are more likely to develop this condition if you: Have certain medical conditions such as heart, kidney, or liver failure. Have a medical condition that causes frequent or excessive diarrhea. Participate in intense physical activities, such as marathon running. Take certain medicines that affect the sodium and fluid balance in the blood. Some of these medicine types include: ?Diuretics. ?NSAIDs, such as ibuprofen. ?Some opioid pain medicines. ?Some antidepressants. ?Some seizure prevention medicines. What are the signs or symptoms? Symptoms of this condition include: Headache. Nausea and vomiting. Being very tired (lethargic). Muscle weakness and cramping. Loss of appetite. Feeling weak or light-headed. Severe symptoms of this condition include: Confusion. Agitation. Having a rapid heart rate. Fainting. Seizures. Coma. How is this diagnosed? This condition is diagnosed based on: A physical exam. Your medical history. Tests, including: ?Blood tests. ?Urine tests. How is this treated? Treatment for this condition depends on the cause. Treatment may include: Getting fluids through an IV that is inserted into one of your veins. Medicines to correct the sodium imbalance. If medicines are causing the condition, the medicines will need to be adjusted. Limiting your water or fluid intake to get the correct sodium balance, in certain cases. Monitoring in the hospital to closely watch your symptoms for improvement. Follow these instructions at home: Take dpyf-rxz-vljjugj and prescription medicines only as told by your health care provider. Many medicines can make this condition worse. Talk with your health care provider about any medicines that you are currently taking. Do not drink alcohol. Keep all follow-up visits. This is important. Contact a health care provider if: You develop worsening nausea, fatigue, headache, confusion, or weakness. Your symptoms go away and then return. Get help right away if: You have a seizure. You faint. You have ongoing diarrhea or vomiting. Summary Hyponatremia is when the amount of salt (sodium) in your blood is too low. When sodium levels are low, your cells absorb extra water, which causes them to swell. The swelling happens throughout the body, but it mostly affects the brain. Treatment for this condition depends on the cause. It may include receiving IV fluids, taking or adjusting medicines, limiting fluid intake, and monitoring in the hospital. This information is not intended to replace advice given to you by your health care provider. Make sure you discuss any questions you have with your health care provider. Document Revised: 05/29/2022 Document Reviewed: 05/29/2022 [employer] Patient Education 2022 [employer]. 04/08/2023 08:56:02 Nonspecific Chest Pain, Adult Nonspecific Chest Pain, Adult Chest pain is an uncomfortable, tight, or painful feeling in the chest. The pain can feel like a crushing, aching, or squeezing pressure. A person can feel a burning or tingling sensation. Chest pain can also be felt in your back, neck, jaw, shoulder, or arm. This pain can be worse when you move, sneeze, or take a deep breath. Chest pain can be caused by a condition that is life-threatening. This must be treated right away. It can also be caused by something that is not life-threatening. If you have chest pain, it can be hard to know the difference, so it is important to get help right away to make sure that you do not have a serious condition. Some life-threatening causes of chest pain include: Heart attack. A tear in the body's main blood vessel (aortic dissection). Inflammation around your heart (pericarditis). A problem in the lungs, such as a blood clot (pulmonary embolism) or a collapsed lung (pneumothorax). Some non life-threatening causes of chest pain include: Heartburn. Anxiety or stress. Damage to the bones, muscles, and cartilage that make up your chest wall. Pneumonia or bronchitis. Shingles infection (varicella-zoster virus). Your chest pain may come and go. It may also be constant. Your health care provider will do tests and other studies to find the cause of your pain. Treatment will depend on the cause of your chest pain. Follow these instructions at home: Medicines Take xqum-xlh-payyhtu and prescription medicines only as told by your health care provider. If you were prescribed an antibiotic medicine, take it as told by your health care provider. Do not stop taking the antibiotic even if you start to feel better. Activity Avoid any activities that cause chest pain. Do not lift anything that is heavier than 10 lb (4.5 kg), or the limit that you are told, until your health care provider says that it is safe. Rest as directed by your health care provider. Return to your normal activities only as told by your health care provider. Ask your health care provider what activities are safe for you. Lifestyle Do not use any products that contain nicotine or tobacco, such as cigarettes, e-cigarettes, and chewing tobacco. If you need help quitting, ask your health care provider. Do not drink alcohol. Make healthy lifestyle changes as recommended. These may include: ?Getting regular exercise. Ask your health care provider to suggest some exercises that are safe for you. ?Eating a heart-healthy diet. This includes plenty of fresh fruits and vegetables, whole grains, low-fat (lean) protein, and low-fat dairy products. A dietitian can help you find healthy eating options. ?Maintaining a healthy weight. ?Managing any other health conditions you may have, such as high blood pressure (hypertension) or diabetes. ?Reducing stress, such as with yoga or relaxation techniques. General instructions Pay attention to any changes in your symptoms. It is up to you to get the results of any tests that were done. Ask your health care provider, or the department that is doing the tests, when your results will be ready. Keep all follow-up visits as told by your health care provider. This is important. You may be asked to go for further testing if your chest pain does not go away. Contact a health care provider if: Your chest pain does not go away. You feel depressed. You have a fever. You notice changes in your symptoms or develop new symptoms. Get help right away if: Your chest pain gets worse. You have a cough that gets worse, or you cough up blood. You have severe pain in your abdomen. You faint. You have sudden, unexplained chest discomfort. You have sudden, unexplained discomfort in your arms, back, neck, or jaw. You have shortness of breath at any time. You suddenly start to sweat, or your skin gets clammy. You feel nausea or you vomit. You suddenly feel lightheaded or dizzy. You have severe weakness, or unexplained weakness or fatigue. Your heart begins to beat quickly, or it feels like it is skipping beats. These symptoms may represent a serious problem that is an emergency. Do not wait to see if the symptoms will go away. Get medical help right away. Call your local emergency services (911 in the [place] Do not drive yourself to the hospital. Summary Chest pain can be caused by a condition that is serious and requires urgent treatment. It may also be caused by something that is not life-threatening. Your health care provider may do lab tests and other studies to find the cause of your pain. Follow your health care provider's instructions on taking medicines, making lifestyle changes, and getting emergency treatment if symptoms become worse. Keep all follow-up visits as told by your health care provider. This includes visits for any further testing if your chest pain does not go away. This information is not intended to replace advice given to you by your health care provider. Make sure you discuss any questions you have with your health care provider. Document Revised: 02/01/2022 Document Reviewed: 02/01/2022 [employer] Patient Education 2022 [employer]. Follow Up Care 04/07/2023 21:19:10 With:DUYEN ROGERS Address: [address] [place] [address]- [phone] Business (1) When:Within 3 Day(s) [facility] 04-07-2023 Evaluation + Plan note Extrac arianna from: Title:ED Note Author:Richard Ca DO Date :04/07/23 Chest pain (R07.9: Chest laura n, unspecified) Hyponatremia (E87.1: Hypo-osmolality and hyponatremia) Orders: acetaminophen, Tab, Misc, Once, Stop date 04/07/23 23:48:04 EDT, Physician Stop, 04/07/23 23:48:04 EDT acetaminophen, 975 mg = 3 tab(s), Tab, Oral, Once, Stop date 04/07/23 23:50:00 EDT, Start date 04/07/23 23:50:00 EDT Sodium Chloride 0.9% intravenous solution 500 mL, 500 mL, IV, 500 mL/hr, for 60 minute(s), Stop date 04/08/23 3:13:00 EDT, STAT, Start date 04/08/23 2:14:00 EDT, 1 hour(s), Total volume (mL): 500, 58.5 kg, 1.6, m2 Sodium Chloride 0.9% intravenous solution 500 mL, 500 mL, IV, 500 mL/hr, STAT, Start date 04/07/23 23:05:00 EDT, 1 hour(s), Total volume (mL): 500, Bolus Dose: 500 mL, 58.5 kg, 1.6, m2 Automated Diff Basic Metabolic Panel Basic Metabolic Panel CBC w/ Auto Diff ECG 12 Lead Adult ED Cardiac Monitoring eGFR eGFR Oxygen Saturation Oxygen Therapy PT & PTT Saline Lock Insert Troponin 0 Hr. Troponin 3 Hr. Troponin 6 Hr. Troponin 9 Hr. XR Chest Single View [facility]03-13-2023 NoteUT Cardiology - [facility] Subjective Sylvia Herrera is a 77 y.o. year old female patient being seen for feeling very good this is her 17th year with her new heart. No chest pain or swelling, she thinks it was her thyroid that was causing swelling as they have adjust her thyroid meds and swelling has improved. Patient Active Problem List Diagnosis Nonischemic congestive cardiomyopathy (CMS/HCC) Anxiety Hypertensive disorder Hypothyroidism Right bundle branch block Status post heart transplantation (CMS/HCC) DREW (acute kidney injury) (CMS/HCC) Anemia Chronic diarrhea Acute renal failure (CMS/HCC) CKD (chronic kidney disease) Depressive disorder Diabetes mellitus, type II (CMS/HCC) Diarrhea in adult patient Diverticulosis of large intestine without hemorrhage Duodenitis Gastroenteritis High anion gap metabolic acidosis Hypokalemia Hypomagnesemia Left upper quadrant abdominal pain Leukocytosis Mood disorder due to a general medical condition Nausea and vomiting Pancreatic insufficiency Prophylactic immunotherapy Right groin pain Severe malnutrition (CMS/HCC) Generalized anxiety disorder Hypertension Family History Family history unknown: Yes Social History Tobacco Use Smoking status: Never Smokeless tobacco: Never Substance Use Topics Alcohol use: Not Currently Drug use: Never HPI Visit of 10/30/2021: Sylvia is seen as a new patient. She is a 75-year-old woman with prior history of nonischemic cardiomyopathy, status post LVAD placement in the past and followed by cardiac transplantation on 01/18/2006. Prior to transplantation she was supported with an LVAD HeartMate 2 that was explanted in 2004. She received IV Thymoglobulin for elevated PRA's pretransplant. She required mediastinal reexploration post transplant x2 for bleeding. Preop EBV IgG positive, herpes simplex IgG positive, varicella-zoster antibody positive. Pneumovax done 11/09/2005. She underwent previously emergency laparoscopic cholecystectomy in 2007. She is followed by the [facility] cardiology service. She has had no history of rejection according to the record. Her immunosuppression regimen includes mycophenolate mofetil 500 mg twice daily and tacrolimus 0.5 mg capsule 2 capsules in the morning and 1 capsule in the evening. Due to recent tacrolimus level the tacrolimus was reduced to 0.5 mg twice daily. She has prior history of hypothyroidism on replacement. Her TSH in 2019 was within normal limits. She has CKD stage IIIb. She also has pancreatic exocrine insufficiency diagnosed in 2016 when she was hospitalized with diarrhea, dehydration and DREW, and is on Creon treatment. She has history of Thrombocytopenia and was evaluated by hematology on 03/18/19 and it was felt that it was laboratory abnormality and did not represent true thrombocytopenia. She had EGD (showed bulbar and apical erososions) and Colonoscopy 12/2016 (sigmoid diverticulosis) In addition she currently takes aspirin 81 mg daily, losartan 100 mg daily, simvastatin 20 mg daily. Today she reports that she has been doing well. No chest pain, no shortness of breath, no lower extremity edema. No palpitations. She has occasional mild lightheadedness. Her blood pressure is elevated today. She reports that her blood pressure at home is usually controlled with a systolic ranging from 120 to 130 mmHg. Prior testing: Blood testing 10/10/2021: Tacrolimus 10.1 ng/mL [5-20 ng/mL]. Blood testing 10/10/2021: Hemoglobin 13.8, platelets 209. Potassium 4.8, BUN 24, creatinine 1.45, GFR 35. Blood testing 07/12/2021: BUN 19, creatinine 1.33, GFR 39, cholesterol 94, HDL 43, triglycerides 71, LDL 37. Hemoglobin A1c 5.2%, TSH 1.06. Additional history according to the prior record: Dobutamine echocardiogram 12/28/2011: Negative for ischemia, resting LVEF 64%. Cath 12/26/2010: Normal coronary arteries. Echocardiogram 06/27/2011: LVEF 65%, normal RV size and systolic function, no significant valvular abnormality. Cardiac Catheterization ( 11/14/17) Normal coronary arteries and filling pressures. [Use LEFT groin for caths] Echocardiogram (11/14/17) left ventricle is normal in size. Left ventricular systolic function is hyperdynamic. EF = 75 ?? 5% (visual est.) Left ventricular diastolic function was not evaluated due to heart transplant. The right ventricle is normal in size. Right ventricular systolic function is low normal. Suspect prominent TV pap muscle (clip 110). The left atrial cavity is dilated. There are no significant valvular abnormalities. Exam was compared with the prior echocardiographic exam performed on 11/19/16. Similar findings. Nuclear Stress Testing (09/02/19): 1. SPECT Perfusion Study: Normal. 2. There is no scintigraphic evidence for inducible ischemia. 3. No evidence of scarred myocardium. 4. Functional capacity N/A (pharmacological). 5. Left ventricle is norm (more content not included)...[facility]02-06-2023 NoteUT Cardiology - [facility] Subjective Sylvia Herrera is a 77 y.o. year old female patient being seen for follow up echo and labs done in Dec [address] Rooney currently has her on 40mg of lasix daily. Denies chest pain and SOB. Patient Active Problem List Diagnosis Nonischemic congestive cardiomyopathy (CMS/HCC) Anxiety Hypertensive disorder Hypothyroidism Right bundle branch block Status post heart transplantation (CMS/HCC) DREW (acute kidney injury) (CMS/HCC) Anemia Chronic diarrhea Acute renal failure (CMS/HCC) CKD (chronic kidney disease) Depressive disorder Diabetes mellitus, type II (CMS/HCC) Diarrhea in adult patient Diverticulosis of large intestine without hemorrhage Duodenitis Gastroenteritis High anion gap metabolic acidosis Hypokalemia Hypomagnesemia Left upper quadrant abdominal pain Leukocytosis Mood disorder due to a general medical condition Nausea and vomiting Pancreatic insufficiency Prophylactic immunotherapy Right groin pain Severe malnutrition (CMS/HCC) Generalized anxiety disorder Hypertension Family History Family history unknown: Yes Social History Tobacco Use Smoking status: Never Smokeless tobacco: Never Substance Use Topics Alcohol use: Not Currently Drug use: Never HPI Visit of 10/30/2021: Sylvia is seen as a new patient. She is a 75-year-old woman with prior history of nonischemic cardiomyopathy, status post LVAD placement in the past and followed by cardiac transplantation on 01/18/2006. Prior to transplantation she was supported with an LVAD HeartMate 2 that was explanted in 2004. She received IV Thymoglobulin for elevated PRA's pretransplant. She required mediastinal reexploration post transplant x2 for bleeding. Preop EBV IgG positive, herpes simplex IgG positive, varicella-zoster antibody positive. Pneumovax done 11/09/2005. She underwent previously emergency laparoscopic cholecystectomy in 2007. She is followed by the [facility] cardiology service. She has had no history of rejection according to the record. Her immunosuppression regimen includes mycophenolate mofetil 500 mg twice daily and tacrolimus 0.5 mg capsule 2 capsules in the morning and 1 capsule in the evening. Due to recent tacrolimus level the tacrolimus was reduced to 0.5 mg twice daily. She has prior history of hypothyroidism on replacement. Her TSH in 2019 was within normal limits. She has CKD stage IIIb. She also has pancreatic exocrine insufficiency diagnosed in 2016 when she was hospitalized with diarrhea, dehydration and DREW, and is on Creon treatment. She has history of Thrombocytopenia and was evaluated by hematology on 03/18/19 and it was felt that it was laboratory abnormality and did not represent true thrombocytopenia. She had EGD (showed bulbar and apical erososions) and Colonoscopy 12/2016 (sigmoid diverticulosis) In addition she currently takes aspirin 81 mg daily, losartan 100 mg daily, simvastatin 20 mg daily. Today she reports that she has been doing well. No chest pain, no shortness of breath, no lower extremity edema. No palpitations. She has occasional mild lightheadedness. Her blood pressure is elevated today. She reports that her blood pressure at home is usually controlled with a systolic ranging from 120 to 130 mmHg. Prior testing: Blood testing 10/10/2021: Tacrolimus 10.1 ng/mL [5-20 ng/mL]. Blood testing 10/10/2021: Hemoglobin 13.8, platelets 209. Potassium 4.8, BUN 24, creatinine 1.45, GFR 35. Blood testing 07/12/2021: BUN 19, creatinine 1.33, GFR 39, cholesterol 94, HDL 43, triglycerides 71, LDL 37. Hemoglobin A1c 5.2%, TSH 1.06. Additional history according to the prior record: Dobutamine echocardiogram 12/28/2011: Negative for ischemia, resting LVEF 64%. Cath 12/26/2010: Normal coronary arteries. Echocardiogram 06/27/2011: LVEF 65%, normal RV size and systolic function, no significant valvular abnormality. Cardiac Catheterization ( 11/14/17) Normal coronary arteries and filling pressures. [Use LEFT groin for caths] Echocardiogram (11/14/17) left ventricle is normal in size. Left ventricular systolic function is hyperdynamic. EF = 75 ?? 5% (visual est.) Left ventricular diastolic function was not evaluated due to heart transplant. The right ventricle is normal in size. Right ventricular systolic function is low normal. Suspect prominent TV pap muscle (clip 110). The left atrial cavity is dilated. There are no significant valvular abnormalities. Exam was compared with the prior echocardiographic exam performed on 11/19/16. Similar findings. Nuclear Stress Testing (09/02/19): 1. SPECT Perfusion Study: Normal. 2. There is no scintigraphic evidence for inducible ischemia. 3. No evidence of scarred myocardium. 4. Functional capacity N/A (pharmacological). 5. Left ventricle is normal in size. The left ventricle systolic function is normal. 6. This is a (more content not included)...[facility] Miscellaneous Notes* Telephone Encounter - Linden Weems - 08/02/2022 1:41 PM EDT Patient had labs drawn 08/02/22, uploaded to scanned docs. documented in this encounter08-04-2022 Miscellaneous Notes* Telephone Encounter - Sho Crowley APRN.ODETTE - 07/05/2022 10:40 AM EDT 07/03/22 labs: FK: 12.4, Cr 1.64, BUN 24, K 4.0, FBS 114, WBC 7.6, Hgb 14, Hct 42.3, Plts 191 Left message. Patient to decrease Tacrolimus 0.5mg daily repeat labs 2 weeks. Patient to call our team with update regarding transferring care to another transplant center closer to home. Left message to call our team back if she has established care with another team. Sho Crowley APRN, ODETTE Pager: [phone] July 05, 2022 10:42 AM Post Heart Transplant Nurse Practitioner documented in this encounter08-02-2022 Miscellaneous Notes* Telephone Encounter - Linden Weems - 07/03/2022 12:59 PM EDT Patient had labs drawn 07/03/22, uploaded to scanned docs. documented in this encounter06-07-2022 Miscellaneous Notes* Addendum Note - Loida Mathias APRN.CNP - 05/08/2022 3:26 PM EDT Addended by: LOIDA MATHIAS on: 05/08/2022 03:26 PM Modules accepted: Orders * Telephone Encounter - Loida Mathias APRN.CNP - 05/08/2022 3:07 PM EDT Received labs drawn 05/07 -- FK 3.4 Cr 1.6 BUN 33 K 4.0 FBS 73 WBC 7800 Hgb 14 Hct 44 Plts 188 Called and spoke with patient. Advised she increase her Tacrolimus dose back up to 0.5 mg BID. Repeat labs in 2 weeks. She is still working on getting set up with a transplant center that is closer to her home. She will keep us posted. Loida Mathias APRN.CNP May 08, 2022 3:19 PM Component Latest Ref Rng & Units 10/10/2021 04/09/2022 04/24/2022 05/07/2022 Tacrolimus/FK506 5.0 - 20.0 ng/mL 10.1 9.9 4.5 (L) 3.4 (L) * Telephone Encounter - Linden Weems - 05/08/2022 11:49 AM EDT Patient had labs drawn 05/07/22, uploaded to scanned docs. Linden Weems Administrative Registered Veterinary Technician documented in this encounter05-24-2022 Miscellaneous Notes* Telephone Encounter - Linden Weems - 04/24/2022 1:31 PM EDT Patient left message that she had labs drawn today. Linden Faustina Administrative Registered Veterinary Technician Post Heart Transplant J3-4 documented in this encounter05-11-2022 NoteHNO ID: [id number] Author: Loida Mathias APRN.CNP Service: ? Author Type: Nurse Practitioner Type: Progress Notes Filed: 04/12/2022 2:26 PM Note Text: Received outside labs drawn 04/09 -- FK 9.9 Cr 1.5 BUN 28 K 4.2 FBS 122 WBC 6700 Hgb 14 Hct 44 Plts 200 Called and spoke with patient. She confirms her current Tac dose is 0.5 mg BID, this was a good 12 hr trough, and was not drawn post dose. No new meds, ATB, etc. Advised that she reduce Tacrolimus to 0.5 mg once daily in the AM. Repeat labs in 7-10 days to reassess level. She verbalized understanding. Also discussed with patient that she missed her appt with us on 04/09. She was scheduled for Echo, routines, and to establish care with Dr Perez. She reports she can no longer travel to [place]. She does not have a ride, she has no family or friends to lean on. She has made an appt with a local Criminology Professor. She will ask him if there are any transplant doctors or centers near her and potentially need to transfer her care. She will keep us updated. Loida Mathias APRN.CNP April 12, 2022 2:25 [facility]05-11-2022 History of Present illness Narrative* Loida Mathias APRN.CNP - 04/11/2022 3:42 PM EDT Received outside labs drawn 04/09 -- FK 9.9 Cr 1.5 BUN 28 K 4.2 FBS 122 WBC 6700 Hgb 14 Hct 44 Plts 200 Called and spoke with patient. She confirms her current Tac dose is 0.5 mg BID, this was a good 12 hr trough, and was not drawn post dose. No new meds, ATB, etc. Advised that she reduce Tacrolimus to0.5 mg once daily in the AM. Repeat labs in 7-10 days to reassess level. She verbalized understanding. Also discussed with patient that she missed her appt with us on 04/09. She was scheduled for Echo, routines, and to establish care with Dr Perez. She reports she can no longer travel to [place]. Shedoes not have a ride, she has no family or friends to lean on. She has made an appt with a local Criminology Professor. She will ask him if there are any transplant doctors or centers near her and potentiallyneed to transfer her care. She will keep us updated. Loida Mathias APRN.CNP April 12, 2022 2:25 PM documented in this encounter11-08-2021 NoteHNO ID: [id number] Author: Loida Mathias APRN.CNP Service: ? Author Type: Nurse Practitioner Type: Progress Notes Filed: 10/09/2021 4:11 PM Note Text: Contacted patient to follow up after Phone visit with Dr Rice on 10/03. Called and left message for patient. Advised to have labs drawn now, including a Tacrolimus level. Tentatively put on our calendar for Echo, routines, visit with new staff (Dr Perez) on 04/02/22. Loida Mathias APRN.CNP October 09, 2021 4:10 [facility]11-02-2021 NoteHNO ID: [id number] Author: Nicolette Rice MD Service: ? Author Type: Physician Type: Progress Notes Filed: 10/03/2021 4:12 PM Note Text: Heart, Vascular AND Thoracic [place] Department of Cardiovascular Medicine TELEPHONE VISIT PROGRESS NOTE This is a telephone encounter initiated for an established patient, parent or guardian not originating from a related Evaluation AND Management service provided within the previous 7 days nor leading to an Evaluation AND Management service or procedure within the next 24 hours or soonest available appointment. Sylvia Erin Navace has consented to this telephone encounter. Persons Present: patient Chief Complaint/Reason: transplant follow-up. HPI: HEART TRANSPLANT HISTORY Date of Tx: 03/04/1995 Diagnosis Pre-Txp:?dilated, nonischemic cardiomyopathy since 1994. Pathology of Explanted Heart: Dilated cardiomyopathy with Extensive interstitial fibrosis. Status post left ventricular assist device placement with organizing Pericarditis. Coronary atherosclerosis 50% narrowing lad and right coronary. Acute myocyte necrosis, polymorphonuclear leukocyte margination andReperfusion injury with interstitial hemorrhage. basophilic degenearation (right and left atrial muscle). Rejection History:?None Overall, she has been doing well. She did fall and injured her leg in January 2021. She had a fever and was found to have a sinus infection which was treated by her PCP ~ one month ago. She currently denies any history of GEE, orthopnea, PND,edema, chest pain, palpitations, dizziness or syncope. She has no cough, GI or problems. No med changes. Her weight has been stable overall. Her home BP's are usually 120-130's/80-90. She exercises regulary by walking every am with a group of women. She received her flu vaccine and got her second Pfizer vaccine 3 weeks ago. She plans to get her boost in ~6 months. Will see a local lunch truck driver at the end of the month. Data Reviewed: No new labs Assessment: She is doing well clinically and her BP is controlled. ? Plan: 1. She was instructed to continue the current medical program. 2. RTC per post-transplant protocol. Total Time Spent: 21-30 minutes Nicolette Rice, [facility]12-14-2017 History of Past illness Narrative* Problem Noted Date Resolved Date Pain 11/14/2017 09/02/2019 Delirium 12/03/2014 09/02/2019 Consolidation lung 12/03/2014 09/02/2019 Diarrhea 11/29/2014 09/02/2019 Pneumonia 11/29/2014 09/02/2019 DREW (acute kidney injury) 05/06/20142013 Overview: Resolved Orthostasis 05/06/2014 05/19/2014 Overview: Resolved. Will restart losartan today and monitor her BP Right lower quadrant pain 04/29/20142018 Overview: >6 month history of RLQ/groin pain repeated RHC/LHC? Chronic pain following. Appreciate their assistance. Continue tylenol prn Cymbalta 60 daily Topical Lidocaine gel prn - increase to QID Starting neurontin 300 TID Will follow-up with local chronic pain doctor DVT prophylaxis 08/17/2013 09/02/2019 Overview: SQ heparin History of immunosuppression therapy 08/11/2013 08/12/2013 Kidney stone 08/11/2013 05/06/2014 Overview: Previously had 2 mm distal R ureteral calculus with mild hydronephrosis. This stone passes back in 08/2013. No current stones on CT scan SUMMARY 08/10/2013 09/02/2019 Overview: This is a 68 year old female with a history of heart transplant in 2005, hypothyroidism, depression, hypertension and nephrolithiasis who recurrent RLQ and right groin pain along with non-bloody diarrhea, nausea and vomiting. Abdominal pain 08/10/2013 05/19/2014 Overview: Likely related no renal stone in distal ureter. CT abdomen previously with 2mm stone with mild hydro. Ordered renal us tonight to evaluate for worsening hydro. Results show mild hydro. Will continue pain control tonight and urology team to discuss in am. Depression 08/10/2013 08/12/2013 Overview: cont home anti-depressant. GERD (gastroesophageal reflux disease) 3 08/12/2013 Overview: cont ppi Encounter for long-term (current) use of other m edications 08/26/2008 08/12/2013 Chronic ethmoidal sinusitis 10/30/200708/02 Heart replaced by transplant 03/19/200610/2013 steroid osteoporosis 03/15/2006 08/12/2013 Unspecified essential hypertension 09/02/2019 Overview: cont outpatient anti-HTN. Unspecified hypothyroidism 05/19 Overview: cont synthroid. documented as of this encounter (statuses as of 04/05/2022) 12-14-2017 History of Past illness Narrative* Problem Noted Date Resolved Date Pain 11/14/2017 09/02/2019 Delirium 12/03/2014 09/02/2019 Consolidation lung 12/03/2014 09/02/2019 Diarrhea 11/29/2014 09/02/2019 Pneumonia 11/29/2014 09/02/2019 DREW (acute kidney injury) 05/06/20142013 Overview: Resolved Orthostasis 05/06/2014 05/19/2014 Overview: Resolved. Will restart losartan today and monitor her BP Right lower quadrant pain 04/29/20142018 Overview: >6 month history of RLQ/groin pain repeated RHC/LHC? Chronic pain following. Appreciate their assistance. Continue tylenol prn Cymbalta 60 daily Topical Lidocaine gel prn - increase to QID Starting neurontin 300 TID Will follow-up with local chronic pain doctor DVT prophylaxis 08/17/2013 09/02/2019 Overview: SQ heparin History of immunosuppression therapy 08/11/2013 08/12/2013 Kidney stone 08/11/2013 05/06/2014 Overview: Previously had 2 mm distal R ureteral calculus with mild hydronephrosis. This stone passes back in 08/2013. No current stones on CT scan SUMMARY 08/10/2013 09/02/2019 Overview: This is a 68 year old female with a history of heart transplant in 2006, hypothyroidism, depression, hypertension and nephrolithiasis who recurrent RLQ and right groin pain along with non-bloody diarrhea, nausea and vomiting. Abdominal pain 08/10/2013 05/19/2014 Overview: Likely related no renal stone in distal ureter. CT abdomen previously with 2mm stone with mild hydro. Ordered renal us tonight to evaluate for worsening hydro. Results show mild hydro. Will continue pain control tonight and urology team to discuss in am. Depression 08/10/2013 08/12/2013 Overview: cont home anti-depressant. GERD (gastroesophageal reflux disease) 3 08/12/2013 Overview: cont ppi Encounter for long-term (current) use of other m edications 08/26/2008 08/12/2013 Chronic ethmoidal sinusitis 10/30/200708/02 Heart replaced by transplant 03/19/200610/2013 steroid osteoporosis 03/15/2006 08/12/2013 Unspecified essential hypertension 09/02/2019 Overview: cont outpatient anti-HTN. Unspecified hypothyroidism 05/19 Overview: cont synthroid. documented as of this encounter (statuses as of 04/06/2022) 12-14-2017 History of Past illness Narrative* Problem Noted Date Resolved Date Pain 11/14/2017 09/02/2019 Delirium 12/03/2014 09/02/2019 Consolidation lung 12/03/2014 09/02/2019 Diarrhea 11/29/2014 09/02/2019 Pneumonia 11/29/2014 09/02/2019 DREW (acute kidney injury) 05/06/20142013 Overview: Resolved Orthostasis 05/06/2014 05/19/2014 Overview: Resolved. Will restart losartan today and monitor her BP Right lower quadrant pain 04/29/20142018 Overview: >6 month history of RLQ/groin pain repeated RHC/LHC? Chronic pain following. Appreciate their assistance. Continue tylenol prn Cymbalta 60 daily Topical Lidocaine gel prn - increase to QID Starting neurontin 300 TID Will follow-up with local chronic pain doctor DVT prophylaxis 08/17/2013 09/02/2019 Overview: SQ heparin History of immunosuppression therapy 08/11/2013 08/12/2013 Kidney stone 08/11/2013 05/06/2014 Overview: Previously had 2 mm distal R ureteral calculus with mild hydronephrosis. This stone passes back in 08/2013. No current stones on CT scan SUMMARY 08/10/2013 09/02/2019 Overview: This is a 68 year old female with a history of heart transplant in 2005, hypothyroidism, depression, hypertension and nephrolithiasis who recurrent RLQ and right groin pain along with non-bloody diarrhea, nausea and vomiting. Abdominal pain 08/10/2013 05/19/2014 Overview: Likely related no renal stone in distal ureter. CT abdomen previously with 2mm stone with mild hydro. Ordered renal us tonight to evaluate for worsening hydro. Results show mild hydro. Will continue pain control tonight and urology team to discuss in am. Depression 08/10/2013 08/12/2013 Overview: cont home anti-depressant. GERD (gastroesophageal reflux disease) 3 08/12/2013 Overview: cont ppi Encounter for long-term (current) use of other m edications 08/26/2008 08/12/2013 Chronic ethmoidal sinusitis 10/30/200708/02 Heart replaced by transplant 03/19/200610/2013 steroid osteoporosis 03/15/2006 08/12/2013 Unspecified essential hypertension 09/02/2019 Overview: cont outpatient anti-HTN. Unspecified hypothyroidism 05/19 Overview: cont synthroid. documented as of this encounter (statuses as of 04/12/2022) 12-14-2017 History of Past illness Narrative* Problem Noted Date Resolved Date Pain 11/14/2017 09/02/2019 Delirium 12/03/2014 09/02/2019 Consolidation lung 12/03/2014 09/02/2019 Diarrhea 11/29/2014 09/02/2019 Pneumonia 11/29/2014 09/02/2019 DREW (acute kidney injury) 05/06/20142013 Overview: Resolved Orthostasis 05/06/2014 05/19/2014 Overview: Resolved. Will restart losartan today and monitor her BP Right lower quadrant pain 04/29/20142018 Overview: >6 month history of RLQ/groin pain repeated RHC/LHC? Chronic pain following. Appreciate their assistance. Continue tylenol prn Cymbalta 60 daily Topical Lidocaine gel prn - increase to QID Starting neurontin 300 TID Will follow-up with local chronic pain doctor DVT prophylaxis 08/17/2013 09/02/2019 Overview: SQ heparin History of immunosuppression therapy 08/11/2013 08/12/2013 Kidney stone 08/11/2013 05/06/2014 Overview: Previously had 2 mm distal R ureteral calculus with mild hydronephrosis. This stone passes back in 08/2013. No current stones on CT scan SUMMARY 08/10/2013 09/02/2019 Overview: This is a 68 year old female with a history of heart transplant in 2005, hypothyroidism, depression, hypertension and nephrolithiasis who recurrent RLQ and right groin pain along with non-bloody diarrhea, nausea and vomiting. Abdominal pain 08/10/2013 05/19/2014 Overview: Likely related no renal stone in distal ureter. CT abdomen previously with 2mm stone with mild hydro. Ordered renal us tonight to evaluate for worsening hydro. Results show mild hydro. Will continue pain control tonight and urology team to discuss in am. Depression 08/10/2013 08/12/2013 Overview: cont home anti-depressant. GERD (gastroesophageal reflux disease) 3 08/12/2013 Overview: cont ppi Encounter for long-term (current) use of other m edications 08/26/2008 08/12/2013 Chronic ethmoidal sinusitis 10/30/200708/02 Heart replaced by transplant 03/19/200610/2013 steroid osteoporosis 03/15/2006 08/12/2013 Unspecified essential hypertension 09/02/2019 Overview: cont outpatient anti-HTN. Unspecified hypothyroidism 05/19 Overview: cont synthroid. documented as of this encounter (statuses as of 04/24/2022) 12-14-2017 History of Past illness Narrative* Problem Noted Date Resolved Date Pain 11/14/2017 09/02/2019 Delirium 12/03/2014 09/02/2019 Consolidation lung 12/03/2014 09/02/2019 Diarrhea 11/29/2014 09/02/2019 Pneumonia 11/29/2014 09/02/2019 DREW (acute kidney injury) 05/06/20142013 Overview: Resolved Orthostasis 05/06/2014 05/19/2014 Overview: Resolved. Will restart losartan today and monitor her BP Right lower quadrant pain 04/29/20142018 Overview: >6 month history of RLQ/groin pain repeated RHC/LHC? Chronic pain following. Appreciate their assistance. Continue tylenol prn Cymbalta 60 daily Topical Lidocaine gel prn - increase to QID Starting neurontin 300 TID Will follow-up with local chronic pain doctor DVT prophylaxis 08/17/2013 09/02/2019 Overview: SQ heparin History of immunosuppression therapy 08/11/2013 08/12/2013 Kidney stone 08/11/2013 05/06/2014 Overview: Previously had 2 mm distal R ureteral calculus with mild hydronephrosis. This stone passes back in 08/2013. No current stones on CT scan SUMMARY 08/10/2013 09/02/2019 Overview: This is a 68 year old female with a history of heart transplant in 2006, hypothyroidism, depression, hypertension and nephrolithiasis who recurrent RLQ and right groin pain along with non-bloody diarrhea, nausea and vomiting. Abdominal pain 08/10/2013 05/19/2014 Overview: Likely related no renal stone in distal ureter. CT abdomen previously with 2mm stone with mild hydro. Ordered renal us tonight to evaluate for worsening hydro. Results show mild hydro. Will continue pain control tonight and urology team to discuss in am. Depression 08/10/2013 08/12/2013 Overview: cont home anti-depressant. GERD (gastroesophageal reflux disease) 3 08/12/2013 Overview: cont ppi Encounter for long-term (current) use of other m edications 08/26/2008 08/12/2013 Chronic ethmoidal sinusitis 10/30/200708/02 Heart replaced by transplant 03/19/200610/2013 steroid osteoporosis 03/15/2006 08/12/2013 Unspecified essential hypertension 09/02/2019 Overview: cont outpatient anti-HTN. Unspecified hypothyroidism 05/19 Overview: cont synthroid. documented as of this encounter (statuses as of 05/08/2022) 12-14-2017 History of Past illness Narrative* Problem Noted Date Resolved Date Pain 11/14/2017 09/02/2019 Delirium 12/03/2014 09/02/2019 Consolidation lung 12/03/2014 09/02/2019 Diarrhea 11/29/2014 09/02/2019 Pneumonia 11/29/2014 09/02/2019 DREW (acute kidney injury) 05/06/20142013 Overview: Resolved Orthostasis 05/06/2014 05/19/2014 Overview: Resolved. Will restart losartan today and monitor her BP Right lower quadrant pain 04/29/20142018 Overview: >6 month history of RLQ/groin pain repeated RHC/LHC? Chronic pain following. Appreciate their assistance. Continue tylenol prn Cymbalta 60 daily Topical Lidocaine gel prn - increase to QID Starting neurontin 300 TID Will follow-up with local chronic pain doctor DVT prophylaxis 08/17/2013 09/02/2019 Overview: SQ heparin History of immunosuppression therapy 08/11/2013 08/12/2013 Kidney stone 08/11/2013 05/06/2014 Overview: Previously had 2 mm distal R ureteral calculus with mild hydronephrosis. This stone passes back in 08/2013. No current stones on CT scan SUMMARY 08/10/2013 09/02/2019 Overview: This is a 68 year old female with a history of heart transplant in 2005, hypothyroidism, depression, hypertension and nephrolithiasis who recurrent RLQ and right groin pain along with non-bloody diarrhea, nausea and vomiting. Abdominal pain 08/10/2013 05/19/2014 Overview: Likely related no renal stone in distal ureter. CT abdomen previously with 2mm stone with mild hydro. Ordered renal us tonight to evaluate for worsening hydro. Results show mild hydro. Will continue pain control tonight and urology team to discuss in am. Depression 08/10/2013 08/12/2013 Overview: cont home anti-depressant. GERD (gastroesophageal reflux disease) 3 08/12/2013 Overview: cont ppi Encounter for long-term (current) use of other m edications 08/26/2008 08/12/2013 Chronic ethmoidal sinusitis 10/30/200708/02 Heart replaced by transplant 03/19/200610/2013 steroid osteoporosis 03/15/2006 08/12/2013 Unspecified essential hypertension 09/02/2019 Overview: cont outpatient anti-HTN. Unspecified hypothyroidism 05/19 Overview: cont synthroid. documented as of this encounter (statuses as of 07/03/2022) 12-14-2017 History of Past illness Narrative* Problem Noted Date Resolved Date Pain 11/14/2017 09/02/2019 Delirium 12/03/2014 09/02/2019 Consolidation lung 12/03/2014 09/02/2019 Diarrhea 11/29/2014 09/02/2019 Pneumonia 11/29/2014 09/02/2019 DREW (acute kidney injury) 05/06/20142013 Overview: Resolved Orthostasis 05/06/2014 05/19/2014 Overview: Resolved. Will restart losartan today and monitor her BP Right lower quadrant pain 04/29/20142018 Overview: >6 month history of RLQ/groin pain repeated RHC/LHC? Chronic pain following. Appreciate their assistance. Continue tylenol prn Cymbalta 60 daily Topical Lidocaine gel prn - increase to QID Starting neurontin 300 TID Will follow-up with local chronic pain doctor DVT prophylaxis 08/17/2013 09/02/2019 Overview: SQ heparin History of immunosuppression therapy 08/11/2013 08/12/2013 Kidney stone 08/11/2013 05/06/2014 Overview: Previously had 2 mm distal R ureteral calculus with mild hydronephrosis. This stone passes back in 08/2013. No current stones on CT scan SUMMARY 08/10/2013 09/02/2019 Overview: This is a 68 year old female with a history of heart transplant in 2006, hypothyroidism, depression, hypertension and nephrolithiasis who recurrent RLQ and right groin pain along with non-bloody diarrhea, nausea and vomiting. Abdominal pain 08/10/2013 05/19/2014 Overview: Likely related no renal stone in distal ureter. CT abdomen previously with 2mm stone with mild hydro. Ordered renal us tonight to evaluate for worsening hydro. Results show mild hydro. Will continue pain control tonight and urology team to discuss in am. Depression 08/10/2013 08/12/2013 Overview: cont home anti-depressant. GERD (gastroesophageal reflux disease) 3 08/12/2013 Overview: cont ppi Encounter for long-term (current) use of other m edications 08/26/2008 08/12/2013 Chronic ethmoidal sinusitis 10/30/200708/02 Heart replaced by transplant 03/19/200610/2013 steroid osteoporosis 03/15/2006 08/12/2013 Unspecified essential hypertension 09/02/2019 Overview: cont outpatient anti-HTN. Unspecified hypothyroidism 05/19 Overview: cont synthroid. documented as of this encounter (statuses as of 07/05/2022) 12-14-2017 History of Past illness Narrative* Problem Noted Date Resolved Date Pain 11/14/2017 09/02/2019 Delirium 12/03/2014 09/02/2019 Consolidation lung 12/03/2014 09/02/2019 Diarrhea 11/29/2014 09/02/2019 Pneumonia 11/29/2014 09/02/2019 DREW (acute kidney injury) 05/06/20142013 Overview: Resolved Orthostasis 05/06/2014 05/19/2014 Overview: Resolved. Will restart losartan today and monitor her BP Right lower quadrant pain 04/29/20142018 Overview: >6 month history of RLQ/groin pain repeated RHC/LHC? Chronic pain following. Appreciate their assistance. Continue tylenol prn Cymbalta 60 daily Topical Lidocaine gel prn - increase to QID Starting neurontin 300 TID Will follow-up with local chronic pain doctor DVT prophylaxis 08/17/2013 09/02/2019 Overview: SQ heparin History of immunosuppression therapy 08/11/2013 08/12/2013 Kidney stone 08/11/2013 05/06/2014 Overview: Previously had 2 mm distal R ureteral calculus with mild hydronephrosis. This stone passes back in 08/2013. No current stones on CT scan SUMMARY 08/10/2013 09/02/2019 Overview: This is a 68 year old female with a history of heart transplant in 2006, hypothyroidism, depression, hypertension and nephrolithiasis who recurrent RLQ and right groin pain along with non-bloody diarrhea, nausea and vomiting. Abdominal pain 08/10/2013 05/19/2014 Overview: Likely related no renal stone in distal ureter. CT abdomen previously with 2mm stone with mild hydro. Ordered renal us tonight to evaluate for worsening hydro. Results show mild hydro. Will continue pain control tonight and urology team to discuss in am. Depression 08/10/2013 08/12/2013 Overview: cont home anti-depressant. GERD (gastroesophageal reflux disease) 3 08/12/2013 Overview: cont ppi Encounter for long-term (current) use of other m edications 08/26/2008 08/12/2013 Chronic ethmoidal sinusitis 10/30/200708/02 Heart replaced by transplant 03/19/200610/2013 steroid osteoporosis 03/15/2006 08/12/2013 Unspecified essential hypertension 09/02/2019 Overview: cont outpatient anti-HTN. Unspecified hypothyroidism 05/19 Overview: cont synthroid. documented as of this encounter (statuses as of 08/02/2022) 12-14-2017 History of Past illness Narrative* Problem Noted Date Resolved Date Pain 11/14/2017 09/02/2019 Delirium 12/03/2014 09/02/2019 Consolidation lung 12/03/2014 09/02/2019 Diarrhea 11/29/2014 09/02/2019 Pneumonia 11/29/2014 09/02/2019 DREW (acute kidney injury) 05/06/20142013 Overview: Resolved Orthostasis 05/06/2014 05/19/2014 Overview: Resolved. Will restart losartan today and monitor her BP Right lower quadrant pain 04/29/20142018 Overview: >6 month history of RLQ/groin pain repeated RHC/LHC? Chronic pain following. Appreciate their assistance. Continue tylenol prn Cymbalta 60 daily Topical Lidocaine gel prn - increase to QID Starting neurontin 300 TID Will follow-up with local chronic pain doctor DVT prophylaxis 08/17/2013 09/02/2019 Overview: SQ heparin History of immunosuppression therapy 08/11/2013 08/12/2013 Kidney stone 08/11/2013 05/06/2014 Overview: Previously had 2 mm distal R ureteral calculus with mild hydronephrosis. This stone passes back in 08/2013. No current stones on CT scan SUMMARY 08/10/2013 09/02/2019 Overview: This is a 68 year old female with a history of heart transplant in 2005, hypothyroidism, depression, hypertension and nephrolithiasis who recurrent RLQ and right groin pain along with non-bloody diarrhea, nausea and vomiting. Abdominal pain 08/10/2013 05/19/2014 Overview: Likely related no renal stone in distal ureter. CT abdomen previously with 2mm stone with mild hydro. Ordered renal us tonight to evaluate for worsening hydro. Results show mild hydro. Will continue pain control tonight and urology team to discuss in am. Depression 08/10/2013 08/12/2013 Overview: cont home anti-depressant. GERD (gastroesophageal reflux disease) 3 08/12/2013 Overview: cont ppi Encounter for long-term (current) use of other m edications 08/26/2008 08/12/2013 Chronic ethmoidal sinusitis 10/30/200708/02 Heart replaced by transplant 03/19/200610/2013 steroid osteoporosis 03/15/2006 08/12/2013 Unspecified essential hypertension 09/02/2019 Overview: cont outpatient anti-HTN. Unspecified hypothyroidism 05/19 Overview: cont synthroid. documented as of this encounter (statuses as of 09/11/2022) Evaluation + Plan note Future Appointments Appointment Date:08/01/2022 01:50:00 PM Scheduled Provider: Location:[facility] Appointment Type:Surgery FT Diagnostic Tests Pending * CMV Antibody IgM 07/16/22 Future Scheduled Tests Laboratory* Fecal WBC Lactoferrin 07/12/22 * Giardia lamblia, Direct Detection EIA 07/12/22 * O & P Exam, Routine 07/12/22 * Clostridium difficile by PCR 07/12/22 * Enter[facility] by PCR [facility]) [facility] Diagnosis Heart replaced by transplant (HCC)- Primary Heart replaced by transplant [facility] Diagnosis Heart replaced by transplant (HCC)- Primary Heart replaced by transplant Heart transplanted (HCC) Heart replaced by transplant documented in this encounter [facility] note* Diagnosis Heart transplanted (HCC) Heart replaced by transplant documented in this encounter [facility] note* Diagnosis Heart transplanted (HCC) Heart [facility] Narrative No data available for this section [facility] Dis[facility] instructions No data available for this section [facility] No data available for this section [facility] Advance Directives No Advanced Directives Records FoundDocuments on File Type Date Recorded 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 Advance Directive(s) 11/14/2017 5:44 AM Advance Directive(s) 01/02/2012 12:00 AM Advance Directive(s) 01/17/2007 12:00 AM Documents on File Type Date Recorded 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 Sponger Expl 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 Advance Directive(s) 01/02/2012 Advance Directive(s) 01/17/2007 Summary Purpose Family History No Family History Records FoundNo Family History Records FoundNo Family History Records FoundNo Family History Records Found Additional Source Comments Source Comments (unrecognize d section and content) In the event this informatio n is protected by the Federal Confidentiality of Alcohol and Drug Abuse Patient Records regulations: The Federal rules restrict any use of the information to criminally investigate or prosecute any alcohol or drug abuse patient.In the event this information is protected by the Federal Confidentiality of Alcohol and Drug Abuse Patient Records regulations: The Federal rules restrict any use of the information to criminally investigate or prosecute any alcohol or drug abuse patient.In the event this information is protected by the Federal Confidentiality of Alcohol and Drug Abuse Patient Records regulations: The Federal rules restrict any use of the information to criminally investigate or prosecute any alcohol or drug abuse patient.In the event this information is protected by the Federal Confidentiality of Alcohol and Drug Abuse Patient Records regulations: The Federal rules restrict any use of the information to criminally investigate or prosecute any alcohol or drug abuse patient.In the event this information is protected by the Federal Confidentiality of Alcohol and Drug Abuse Patient Records regulations: The Federal rules restrict any use of the information to criminally investigate or prosecute any alcohol or drug abuse patient.In the event this information is protected by the Federal Confidentiality of Alcohol and Drug Abuse Patient Records regulations: The Federal rules restrict any use of the information to criminally investigate or prosecute any alcohol or drug abuse patient.In the event this information is protected by the Federal Confidentiality of Alcohol and Drug Abuse Patient Records regulations: The Federal rules restrict any use of the information to criminally investigate or prosecute any alcohol or drug abuse patient.In the event this information is protected by the Federal Confidentiality of Alcohol and Drug Abuse Patient Records regulations: The Federal rules restrict any use of the information to criminally investigate or prosecute any alcohol or drug abuse patient.In the event this information is protected by the Federal Confidentiality of Alcohol and Drug Abuse Patient Records regulations: The Federal rules restrict any use of the information to criminally investigate or prosecute any alcohol or drug abuse patient. Reason for Visit (unrecogniz ed section and content) Reason Comments Rx Refills Reason Comments Heart Transplant Follow Up Labs Reason Comments Heart Transplant Follow Up Reason Comments Heart Transplant Follow Up labs Reason Comments Heart Transplant Follow Up Lab Meeting Reason Comments Refill Request Care Teams (unrecognized sec tion and content) Milk Deliverer Relationship Specialty Start Date End Date Tao Rooney MD [address] [id number] PCP - General Family Practice 05/13/19 Milk Deliverer Relationship Specialty Start Date End Date Tao Rooney MD [address] [id number] PCP - General Family Practice 05/13/19 Milk Deliverer Relationship Specialty Start Date End Date Tao Rooney MD [address] [id number] PCP - General Family Practice 05/13/19 Milk Deliverer Relationship Specialty Start Date End Date Tao Rooney MD [address] [id number] PCP - General Family Practice 05/13/19 Milk Deliverer Relationship Specialty Start Date End Date Tao Rooney MD [address] [id number] PCP - General Family Practice 05/13/19 Milk Deliverer Relationship Specialty Start Date End Date Tao Rooney MD [address] [id number] PCP - General Family Medicine 05/13/19 INFORMATION SOURCE (unrecogn ized section and content) DATE CREATED AUTHOR 09/01/2022 [facility] DATE CREATED AUTHOR AUTHOR'S ORGANIZ ATION 03/09/2023 [facility] DATE CREATED AUTHOR AUTHOR'S ORGANIZ ATION 04/08/2023 Raheem Mcgraw [facility] DATE CREATED AUTHOR AUTHOR'S ORGANIZ ATION 11/14/2023 [facility] FOR RECORDS PERTAINING TO PATIENTS WHO ARE OR HAVE BEEN ENROLLED IN A CHEMICAL DEPENDENCY/SUBSTANCEABUSE PROGRAM, SOME INFORMATION MAY BE OMITTED. This clinical summary was aggregated from multiple sources. Caution should be exercised in using it in the provision of clinical care. This summary normalizes information from multiple sources, and as a consequence, information in this document may materially change the coding, format and clinical context of patient data. In addition, data may be omitted in some cases. CLINICAL DECISIONS SHOULD BE BASED ON THE PRIMARY CLINICAL RECORDS. [facility]. provides no warranty or guarantee of the accuracy or completeness of information in this document.
[2023-11-23 17:07] LABS: Tacrolimus (FK506), Blood 8.6 ng/mL (2.0-20.0)
== END 2023-11-21 11:21 | disposition home or self-care (01) ==
PROVIDERS: PCP Family Medicine; Visit Provider Internal Medicine Interventional Cardiology
DX: Z94.1 Heart transplant status (principal)
CPT/HCPCS: 36415; 80197

== ENCOUNTER 2023-11-27 11:29 | Outpatient (REF) | payer MEDICARE, MEDICAID, SELFPAY ==
[2023-11-27 14:30] LABS: SARS-CoV-2 Ag NEGATIVE (NEGATIVE)
[2023-11-27 15:49] LABS: SARS-CoV-2 NAA NOT DETECTED (NOT DETECTE)
== END 2023-11-27 11:30 | disposition home or self-care (01) ==
LOC: LAB 11:29
PROVIDERS: PCP Family Medicine; Visit Provider Nurse Practitioner Family
DX: J32.9 Chronic sinusitis, unspecified (principal)
CPT/HCPCS: 87635; 87811

== ENCOUNTER 2023-11-27 14:13 | Emergency (ER) | payer MEDICARE, SELFPAY ==
[2023-11-27 14:19] VITALS: BP 160/98; PULSE 94; RESP 20; TEMP 36.8; O2SAT 98; BMI 23.8
--- NOTE | 2023-11-27 14:56 | XR_ITS ---
The [address] [address] Patient Name: SYLVIA HANNA MRN: [id number] date: 1945 Sex: F Assigned Patient Location: ER Current Patient Location: ER Accession/Order Number: [id number] Exam Date: 11/27/2023 15:04 Report Date: 11/27/2023 15:20 At the request of: FARZANEH PRAJAPATI Procedure: XR chest 2V EXAMINATION: XR chest 2V HISTORY: cough , congestion COMPARISON: XR chest 08/14/2023, 02/14/2023 FINDINGS: LUNGS: Hyperexpanded lungs with trace amount stranding within medial right lung base and mild opacity/stranding within left lung base partially obscuring the heart margin. VASCULATURE: No increased pulmonary vasculature. PLEURA: No pneumothorax, effusion, or pleural thickening. CARDIAC: No cardiomegaly or cardiac silhouette abnormality. MEDIASTINUM: No visible mass or adenopathy. BONES: No fracture or visible bone lesion. OTHER: Prior sternotomy. XR/XR chest 2V IMPRESSION: 1. Mild lingular infiltrates; increased compared to prior studies. 2. Stable, chronic right lung base findings; atelectasis versus scarring versus recurrent infiltrates. Electronically authenticated by: HAI FOSTER Date: 11/27/2023 15:20
[2023-11-27 15:58] LABS: Influenza Virus A Antigen Positive; Influenza Virus B Antigen Negative; Internal Control Within Normal Limits
[2023-11-27] MEDS: ONDANSETRON PF 4 MG/2 ML VIAL IV (16:06)
[2023-11-27] MEDS: 0.9 % SODIUM CHLORIDE 1,000 ML 1000 ML IV (16:06)
[2023-11-27 16:22] LABS: Basophils Percent Auto 0.3 % (0.2-2.0); Eosinophils Absolute Auto 0.1 10^3/uL (0.0-0.7); Eosinophils Percent Auto 0.8 % (0.9-7.0); Hematocrit 41.6 % (36.0-48.0); Hemoglobin 13.4 g/dL (12.0-16.0); Immature Granulocytes Abs Auto 0.03 10^3/uL (0.00-0.03); Immature Granulocytes Pct Auto 0.4 % (0.0-0.5); Lymphocytes Absolute Auto 0.7 10^3/uL (1.2-3.8); Lymphocytes Percent Auto 9.4 % (20.5-60.0); Mean Corpuscular HGB Conc 32.2 g/dL (29.9-35.2); Mean Corpuscular Hemoglobin 29.1 pg (26.7-34.0); Mean Corpuscular Volume 90.4 fL (81.0-99.0); Mean Platelet Volume 9.8 fL (9.5-13.5); Monocytes Absolute Auto 0.9 10^3/uL (0.3-0.8); Monocytes Percent Auto 11.3 % (1.7-12.0); Neutrophils Percent Auto 77.8 % (43.0-75.0); Platelet Count 168 10^3/uL (150-450); Red Cell Distribution Width 12.4 % (11.0-15.0); White Blood Count 7.7 10^3/uL (4.0-11.0)
--- NOTE | 2023-11-27 16:33 | ED.GENADUL1 ---
HPI - General Adult General Chief complaint: Upper Respiratory Infection Stated complaint: SHORTNESS OF BREATH Time Seen by Provider: 11/27/23 14:40 Source: patient Mode of arrival: walk-in Limitations: no limitations History of Present Illness HPI narrative: Patient has been experiencing nasal congestion, runny nose, cough, muscle aches and fatigue for over a week. She saw her PCP and was prescribed azithromycin and completed a 5 day course. She had several negative covid tests at home. She is concerned because the symptoms have not resolved. She also is concerned because she developed nausea and began vomiting yesterday. No diarrhea but she is unable to tolerate solid foods and only occasionally can keep down sips of water. No fever today. No urinary symptoms or problems passing stool or urine. Urine output is decreased. Related Data Home Medications Medication Instructions Recorded Confirmed aspirin 81 mg tablet,delayed 81 mg PO DAILY 06/06/23 08/10/23 release citalopram 20 mg tablet (Celexa) 20 mg PO DAILY 06/06/23 08/10/23 clonazepam 1 mg tablet 1 mg PO DAILY PRN anxiety 06/06/23 08/10/23 tqhycd-ysoenasa-iyjkeck 3 cap PO TID 06/06/23 08/10/23 36,000-114,000-180,000 unit capsule,delay rel (Creon) losartan 50 mg tablet 50 mg PO DAILY 06/06/23 08/10/23 magnesium 250 mg tablet 250 mg PO DAILY 06/06/23 08/10/23 metoprolol tartrate 50 mg tablet 50 mg PO Q12H 06/06/23 08/10/23 mycophenolate mofetil 500 mg tablet 500 mg PO BID 06/06/23 08/10/23 omega-3 fatty acids-fish oil 360 1 cap PO DAILY 06/06/23 08/10/23 mg-1,200 mg capsule (Fish Oil) pramipexole 0.5 mg tablet 0.5 mg PO DAILY 06/06/23 08/10/23 simvastatin 20 mg tablet 20 mg PO DAILY 06/06/23 08/10/23 tacrolimus 0.5 mg capsule, 0.5 mg PO Q12H 06/06/23 08/10/23 immediate-release levothyroxine 112 mcg tablet 112 mcg PO QDAY 06/07/23 08/10/23 buspirone 5 mg tablet 5 mg PO QDAY 08/10/23 08/10/23 doxazosin 2 mg tablet 2 mg PO QDAY 08/10/23 08/10/23 levofloxacin 500 mg tablet 500 mg PO Q24H 08/10/23 08/10/23 Previous Rx's Medication Instructions Recorded ondansetron 4 mg disintegrating 4 mg PO Q6H PRN nausea and 06/08/23 tablet vomiting #14 tabs cephalexin 500 mg capsule 500 mg PO Q12H 7 days #14 caps 08/14/23 doxycycline hyclate 100 mg tablet 100 mg PO BID 7 days #14 tabs 11/27/23 oseltamivir 75 mg capsule (Tamiflu) 75 mg PO BID 5 days #10 caps 11/27/23 Allergies Allergy/AdvReac Type Severity Reaction Status Date / Time promethazine [From Phenergan] AdvReac Severe Confusion Verified 06/07/23 14:45 ciprofloxacin [From Cipro] AdvReac Mild HIVES Verified 06/07/23 18:44 PFSH PFSH Medical History (Updated 11/27/23 @ 16:38 by Jackson Valderrama) Acute kidney injury ?N17.9 - Acute kidney failure, unspecified (ICD-10) Gastroenteritis ?K52.9 - Noninfective gastroenteritis and colitis, unspecified (ICD-10) Heart transplant recipient ?Z94.1 - Heart transplant status (ICD-10) Heart transplant recipient ?Z94.1 - Heart transplant status (ICD-10) Social History (Updated 06/07/23 @ 22:11 by Lizeth Ho) Within the past year, how often did you have a drink containing alcohol: never Score interpretation: A score less than 3 is consistent with normal alcohol consumption. Smoking status: Never smoker Non-prescribed substance use: denies use Highest level of school completed/degree received: high school graduate Are you now , , , , never or living with a partner: In a typical week, how many times do you talk on the telephone with family, friends, or neighbors: 3 or more times per week How often do you get together with friends or relatives: 3 or more times per week How often do you attend catholic or anabaptism services: 4 or more times per year Do you belong to any clubs or organizations such as catholic groups unions, [employer] or athletic groups, or school groups: no Total score: 3 Score interpretation: A score of greater than or equal to 2 indicates the lowest level of social isolation. Little interest or pleasure in doing things: not at all Feeling down, depressed, or hopeless: not at all Feel stressed/tense/nervous/anxious/difficulty sleeping: not at all Do you think of yourself as: straight/heterosexual Gender Identity: female Exam Narrative Exam Narrative: Nurses notes and vital signs reviewed and patient is not hypoxic. afebrile General: Well-appearing and in no apparent distress. Skin: Warm, dry, no pallor noted. No rash. Head: Normocephalic, atraumatic. Neck: Supple, non-tender. No cervical lymphadenopathy. Eye: Pupils are equal, round and EOMI. No scleral icterus. Ears, Nose, Mouth, and Throat: TM are clear, mild posterior oropharynx erythema, mild nasal mucosal hypertrophy, uvula is mid-line, Oral mucosa is moist Cardiovascular: Regular Rate and Rhythm without murmur, gallop or rub. Respiratory: No accessory muscle use or respiratory distress. Lungs are clear to auscultation, no wheezing, rales or rhonchi Back: No CVA tenderness Musculoskeletal: normal ROM GI: Abdomen is soft, non-distended. Normal bowel sounds. No tenderness to palpation. No rebound, guarding, or rigidity noted. Neurological: A&O x4. No cranial nerve dysfunction observed. No truncal ataxia. Moves all extremities. Sensation intact. Psychiatric: Cooperative and interactive. Normal mood and affect. Constitutional Vital Signs, click to edit/add: Last Vital Signs Temp 98.2 F 11/27/23 14:19 Pulse 94 H 11/27/23 14:19 Resp 20 11/27/23 14:19 BP 160/98 H 11/27/23 14:19 Pulse Ox 98 11/27/23 14:19 O2 Del Method Room Air 11/27/23 14:19 Course Vital Signs Vital signs: Vital Signs Temperature 98.2 F 11/27/23 14:19 Pulse Rate 94 H 11/27/23 14:19 Respiratory Rate 20 11/27/23 14:19 Blood Pressure 160/98 H 11/27/23 14:19 Pulse Oximetry 98 11/27/23 14:19 Oxygen Delivery Method Room Air 11/27/23 14:19 Temperature 98.2 F 11/27/23 14:19 Pulse Rate 94 H 11/27/23 14:19 Respiratory Rate 20 11/27/23 14:19 Blood Pressure 160/98 H 11/27/23 14:19 Pulse Oximetry 98 11/27/23 14:19 Oxygen Delivery Method Room Air 11/27/23 14:19 Medical Decision Making MDM Narrative Medical decision making narrative: Patient is a heart transplant patient. WBC normal. Left shift noted on CBC. She tested positive for influenza A and had a lingular infiltrate. Patient informed of results and was discharged home with prescription for doxycycline to cover any potential bacterial pathogen - although lingular infiltrate likely viral based on positive Influenza A result. She will also be placed on tamiflu Patient advised to rest, stay at home, practice social distancing, take Motrin and Tylenol for pain and fever if not allergic, stay well hydrated with Gatorade or similar drinks if vomiting or eat as tolerated if not and take any meds as prescribed. Reviewed reasons to return including rapid increase in respiratory rate, shortness of breath, confusion, inability to keep down sips of swallowed liquids for more than 24 hours. Asked patient to encourage any ill contacts to stay home and practice similar advice. Lab Data Lab results reviewed: Yes I reviewed the patient's lab results Labs: Lab Results 11/27/23 11/27/23 Range/Units 15:25 15:52 WBC 7.7 (4.0-11.0) 10^3/uL RBC 4.60 (4.20-5.40) 10^6/uL Hgb 13.4 (12.0-16.0) g/dL Hct 41.6 (36.0-48.0) % MCV 90.4 (81.0-99.0) fL MCH 29.1 (26.7-34.0) pg MCHC 32.2 (29.9-35.2) g/dL RDW 12.4 (11.0-15.0) % Plt Count 168 (150-450) 10^3/uL MPV 9.8 (9.5-13.5) fL Neut % (Auto) 77.8 H (43.0-75.0) % Lymph % (Auto) 9.4 L (20.5-60.0) % [place] % (Auto) 11.3 (1.7-12.0) % Eos % (Auto) 0.8 L (0.9-7.0) % Baso % (Auto) 0.3 (0.2-2.0) % Neut # (Auto) 6.0 (1.4-6.5) 10^3/uL Lymph # (Auto) 0.7 L (1.2-3.8) 10^3/uL [place] # (Auto) 0.9 H (0.3-0.8) 10^3/uL Eos # (Auto) 0.1 (0.0-0.7) 10^3/uL Baso # (Auto) 0.0 (0.0-0.1) 10^3/uL Abs Immat Gran (auto) 0.03 (0.00-0.03) 10^3/uL Imm/Tot Granulo (auto) 0.4 (0.0-0.5) % Influenza Type A Ag Positive A Influenza Type B Ag Negative Discharge Plan Discharge Chief Complaint: Upper Respiratory Infection Clinical Impression: Influenza A, Lingular pneumonia Patient Disposition: Home, Self-Care Time of Disposition Decision: 16:38 Prescriptions / Home Meds: New oseltamivir [Tamiflu] 75 mg capsule 75 mg PO BID 5 Days Qty: 10 0RF doxycycline hyclate 100 mg tablet 100 mg PO BID 7 Days Qty: 14 0RF No Action levothyroxine 112 mcg tablet 112 mcg PO QDAY ondansetron 4 mg tablet,disintegrating 4 mg PO Q6H PRN (Reason: nausea and vomiting) Qty: 14 0RF buspirone 5 mg tablet 5 mg PO QDAY doxazosin 2 mg tablet 2 mg PO QDAY levofloxacin 500 mg tablet 500 mg PO Q24H citalopram [Celexa] 20 mg tablet 20 mg PO DAILY metoprolol tartrate 50 mg tablet 50 mg PO Q12H losartan 50 mg tablet 50 mg PO DAILY pramipexole 0.5 mg tablet 0.5 mg PO DAILY aspirin 81 mg tablet,delayed release (DR/EC) 81 mg PO DAILY mycophenolate mofetil 500 mg tablet 500 mg PO BID tacrolimus 0.5 mg capsule 0.5 mg PO Q12H clonazepam 1 mg tablet 1 mg PO DAILY PRN (Reason: anxiety) simvastatin 20 mg tablet 20 mg PO DAILY Creon 36,000-114,000- 180,000 unit capsule,delayed release(DR/EC) 3 cap PO TID Rx Instructions: administer with meals and/or snacks magnesium 250 mg tablet 250 mg PO DAILY omega-3 fatty acids-fish oil [Fish Oil] 360-1,200 mg capsule 1 cap PO DAILY cephalexin 500 mg capsule 500 mg PO Q12H 7 Days Qty: 14 0RF Instructions: Influenza (ED), Community Acquired Pneumonia (ED) Stand Alone Forms: Portal Instructions Referrals: Vijay Davis MD [Primary Care Provider] - 1 week
[2023-11-27 16:35] LABS: Alanine Aminotransferase 23 U/L (14-59); Albumin Level 3.4 g/dL (3.4-5.0); Alkaline Phosphatase 128 U/L (46-116); Anion Gap 11.2; Aspartate Amino Transferase 23 U/L (15-37); Bilirubin Total 0.5 mg/dL (0.2-1.0); Calcium 9.1 mg/dL (8.5-10.1); Carbon Dioxide 23.3 mmol/L (21.0-32.0); Chloride 98 mmol/L (98-107); Estimated GFR (African America 36 (>=60); Estimated GFR (Non-African Ame 30 (>=60); Globulin 3.5 g/dL; Glucose 148 mg/dL (74-106); Potassium 4.5 mmol/L (3.5-5.1); Sodium 128 mmol/L (136-145); Total Protein 6.9 g/dL (6.4-8.2)
== END 2023-11-27 17:19 | disposition home or self-care (01) ==
PROVIDERS: Emergency Provider Emergency Medicine; PCP Family Medicine
DX: J18.9 Pneumonia, unspecified organism (principal); J10.1 Influenza due to other identified influenza virus with other respiratory manifestations; J32.9 Chronic sinusitis, unspecified; R06.02 Shortness of breath; R11.2 Nausea with vomiting, unspecified; Z79.82 Long term (current) use of aspirin; Z79.899 Other long term (current) drug therapy; Z94.1 Heart transplant status
CPT/HCPCS: 36415; 71046; 80053; 85025; 87635; 87804; 87811; 96374; 99285

== ENCOUNTER 2023-12-30 16:16 | Inpatient (IN) | payer MEDICARE, SELFPAY ==
[2023-12-30] VITALS (9 sets, daily range): BP systolic 150–184; BP diastolic 73–96; PULSE 77–95; RESP 18–20; TEMP 36.3–37; O2SAT 95–97; BMI 23.4; BMI 23.3
--- NOTE | 2023-12-30 16:32 | CT_ITS ---
The [address] [address] Patient Name: SYLVIA HANNA MRN: [id number] date: 1945 Sex: F Assigned Patient Location: ER Current Patient Location: ER Accession/Order Number: [id number] Exam Date: 12/30/2023 17:05 Report Date: 12/30/2023 17:33 At the request of: ROQUE MATA Procedure: CT cervical spine wo con CT head/brain wo con, CT cervical spine wo con, 12/30/2023 5:05 PM EST INDICATION: syncope, headache, hit head COMPARISON: There is no appropriate prior study for comparison. TECHNIQUE: Axial images of 3 mm are obtained from the base of the skull to vertex completed with Axial images of 2 mm are obtained from base of skull to T2 without contrast. Dose reduction techniques were achieved by using automated exposure control and/or adjustment of mA and/or kV according to patient size and/or use of iterative reconstruction technique. FINDINGS: The cerebral and cerebellar sulci as well as ventricular system are appropriate for age. There is no intracranial mass, mass effect, midline shift, intra or extra-axial fluid collection. No acute territorial infarction or hemorrhage is noted. Periventricular and centrum semiovale hypodensities are most likely consistent with microvascular ischemic changes. Stable calcification within the left frontal lobe, nonspecific. There is mucosal thickening within the and ethmoidal cells. The visualized portions of orbits, mastoid air cells as well as remainder of paranasal sinuses are unremarkable. There is no suspicious osteolytic or osteoblastic lesion. Multiple thyroid nodules measuring up to 7 mm. No acute fracture or dislocation is noted. Multilevel degenerative changes of cervical spine are noted. CT/CT cervical spine wo con IMPRESSION: No acute intracranial process is identified. No acute fracture. Multiple thyroid nodules up to 7 mm. Given the age of the patient and size of the nodule, no further follow-up is recommended per [employer]. Electronically authenticated by: SANDRA AARON Date: 12/30/2023 17:33
--- NOTE | 2023-12-30 16:32 | XR_ITS ---
The [address] [address] Patient Name: SYLVIA HANNA MRN: [id number] date: 1945 Sex: F Assigned Patient Location: ER Current Patient Location: ER Accession/Order Number: [id number] Exam Date: 12/30/2023 17:05 Report Date: 12/30/2023 17:35 At the request of: ROQUE MATA Procedure: XR chest 1V EXAMINATION: XR chest 1V 12/30/2023 2:32 PM PST HISTORY: syncope TECHNIQUE: Single frontal view of the chest acquired. COMPARISONS: Chest x-ray 08/14/2023 and 01/13/2019. FINDINGS: Lines/tubes/other: None. Heart and mediastinum: Stable. Bones: No acute osseous abnormality. Lungs: Small focal opacity in the right apex, similar compared with thousand 19, benign. No new or worsening pulmonary opacity. No pulmonary edema. Pleura: There is no significant pleural effusion or pneumothorax. Other: None. XR/XR chest 1V IMPRESSION: No acute cardiopulmonary abnormality. Electronically authenticated by: ALEXANDER BELLO Date: 12/30/2023 17:35
--- NOTE | 2023-12-30 16:32 | ECG_ITS ---
The [facility] Test Date: 2023-12-30 Pat Name: SYLVIA HANNA Department: Room: - Gender: Female Custodian: : 1945 Requested By: TAO ROONEY Order Number: [id number] Reading MD: TAO ROONEY Measurements Intervals [place] Rate: 76 P: 51 [place]: 152 QRS: 87 QRSD: 96 T: 41 QT: 396 QTc: 426 Interpretive Statements 1100 Sinus rhythm 2440 Incomplete right bundle branch block 4364 Twave abnormality, possible anterolateral ischemia 9150 abnormal ECG Compared to ECG 08/14/2023 16:15:20 Possible ischemia now present Electronically Signed On 01-01-2024 6:44:49 EST by TAO ROONEY
--- NOTE | 2023-12-30 16:32 | CT_ITS ---
The [address] [address] Patient Name: SYLVIA HANNA MRN: [id number] date: 1945 Sex: F Assigned Patient Location: ER Current Patient Location: ER Accession/Order Number: [id number] Exam Date: 12/30/2023 17:05 Report Date: 12/30/2023 17:33 At the request of: ROQUE MATA Procedure: CT head/brain wo con CT head/brain wo con, CT cervical spine wo con, 12/30/2023 5:05 PM EST INDICATION: syncope, headache, hit head COMPARISON: There is no appropriate prior study for comparison. TECHNIQUE: Axial images of 3 mm are obtained from the base of the skull to vertex completed with Axial images of 2 mm are obtained from base of skull to T2 without contrast. Dose reduction techniques were achieved by using automated exposure control and/or adjustment of mA and/or kV according to patient size and/or use of iterative reconstruction technique. FINDINGS: The cerebral and cerebellar sulci as well as ventricular system are appropriate for age. There is no intracranial mass, mass effect, midline shift, intra or extra-axial fluid collection. No acute territorial infarction or hemorrhage is noted. Periventricular and centrum semiovale hypodensities are most likely consistent with microvascular ischemic changes. Stable calcification within the left frontal lobe, nonspecific. There is mucosal thickening within the and ethmoidal cells. The visualized portions of orbits, mastoid air cells as well as remainder of paranasal sinuses are unremarkable. There is no suspicious osteolytic or osteoblastic lesion. Multiple thyroid nodules measuring up to 7 mm. No acute fracture or dislocation is noted. Multilevel degenerative changes of cervical spine are noted. CT/CT head/brain wo con IMPRESSION: No acute intracranial process is identified. No acute fracture. Multiple thyroid nodules up to 7 mm. Given the age of the patient and size of the nodule, no further follow-up is recommended per [employer]. Electronically authenticated by: SANDRA AARON Date: 12/30/2023 17:33
[2023-12-30 16:53] LABS: Basophils Percent Auto 0.1 % (0.2-2.0); Eosinophils Absolute Auto 0.1 10^3/uL (0.0-0.7); Eosinophils Percent Auto 1.6 % (0.9-7.0); Hematocrit 38.9 % (36.0-48.0); Hemoglobin 12.8 g/dL (12.0-16.0); Immature Granulocytes Abs Auto 0.02 10^3/uL (0.00-0.03); Immature Granulocytes Pct Auto 0.3 % (0.0-0.5); Lymphocytes Percent Auto 12.4 % (20.5-60.0); Mean Corpuscular HGB Conc 32.9 g/dL (29.9-35.2); Mean Corpuscular Volume 88.2 fL (81.0-99.0); Mean Platelet Volume 9.8 fL (9.5-13.5); Monocytes Absolute Auto 0.7 10^3/uL (0.3-0.8); Monocytes Percent Auto 8.7 % (1.7-12.0); Neutrophils Absolute Auto 5.9 10^3/uL (1.4-6.5); Neutrophils Percent Auto 76.9 % (43.0-75.0); Platelet Count 170 10^3/uL (150-450); Red Blood Count 4.41 10^6/uL (4.20-5.40); Red Cell Distribution Width 12.7 % (11.0-15.0); White Blood Count 7.7 10^3/uL (4.0-11.0)
--- OUTSIDE RECORDS SUMMARY | 2023-12-30 17:05 | XMS_ITS | CCD ---
Author Name Unknown Address [id number] [place] [address] Organization [facility] Care Team Providers Care Brick Wheeler Name Role Phone Tao Rooney MD Primary [...] Unavailable KAEL .GOPAL Consulting Unavailabl e TORIBIO ., DR BURGER Primary Care Unavailable AYM Sanchez, NANCY Admitting Unavailable JAZLYN DUBOSE Consulting Unavailable AMY Sanchez, NANCY Consulting Unavailable CAMERON NELSON Consulting Unavaila karen Sanchez, DR BURGER Primary Care Unavailable MOUKAELGINEL, DR LANCASTER Admitting Unavailable MOUKARBEL, DR LANCASTER Attending Unavailable DUYEN ROGERS Attending Unavailable HOY ., DR BURGER Primary Care Unavailable ZIEBER, DR HAI Chambers Consulting Unavailable SUE, DUYEN Admitting Unavailable SUEDUYEN Consulting Unavailable HOY ., DR BURGER Primary Care Unavailable HOY ., DR BURGER Admitting Unavailable HOY ., DR BURGER Consulting Unavailable HOY ., DR BURGER Attending Unavailable BREMEN, DR JAZLYN Marcelino Consulting Unavailable DUYEN ROGERS [...] Consulting Unavailable SUE, DUYEN Admitting Unavailable SALAM, Morgan Admitting Unavailable SALAM, Morgan Attending Unavailable SALAM, [...] INOPHEN] Drug Allergy 05-18-20 14 GI Upset [facility] Work Phone: (11 sources) Promethazine; Translations: [PROMETHAZINE HCL] Drug Allergy 10-11-20 05 Other: See Comments [facility] (3 sources) Levamisole; Translations: [Phenergan] Drug Allergy 04-07-20 13 [facility] Repository (1 source) Morphine Drug Allergy [facility] Repository (1 source) No Known Medication Allergies; Translations: [No Known Medication Allergies] Propensity to adverse reactions (disorder) [facility] Repository (2 sources) Promethazine; Translations: [promethazine] Drug Allergy 08-12-20 22 Loss of consciousness (finding) [facility] Medications Current Medications Medication Drug Class(es) Dates [...] 04-08-2023 Episodic Other aftercare (1 source) Other long-term (current) drug therapy; Translations: [OTH STATISTICS MANAGER CURRENT DRUG THERAPY] Onset: 02-18-2023 Episodic [...] Onset: 08-04-2022 Episodic Other aftercare (1 source) care home (current) use of aspirin; Translations: [ASSISTED [...] Range Facility Office Visiton 11-12-2023 Follow-up visit [id number] Sylvia Herrera 1945 F Date Provider Department Center 11/12/2023 [facility] Family history unknown: Yes Level of Service:35669 ID OFFICE/OUTPATIENT ESTABLISHED MOD MDM 30-39 MIN Normal [facility] 36on 10-26-2023 36 Her tacrolimus level from 10/16/2023 was 1.4. still very low. I believe she is currently taking tacrolimus (Prograf) 0.5 mg bid. I want her to increase to 1 mg bid and obtain another trough level in 2-3 weeks. Normal [facility] Telephoneon 10-26-2023 Telephone [id number] Sylvia Herrera 1945 Date Provider Department Center 10/26/2023 ANISHA JACOBS JULIAN Singhevdolores Hernandez Family History Family history unknown: Yes [facility] Orders Onlyon 09-30-2023 Orders Only [id number] Sylvia Herrera 1945 Date Provider Department Center 09/30/2023 Paresh8-SHELBI TURNER JULIAN [facility] Family History Family history unknown: Yes [facility] 36on 08-15-2023 36 Her Tacrolimus troug h level (taken on 08/06/2023, reported 08/14/2023) was low at 1.4. She is currently taking tacrolimus 0.5 mg once a day. Please have her increase it to 0.5 mg twice a day and have a repeat Tacrolimus trough level in 2 weeks. Her target level is around 5-10 ng/ml. [facility] Telephoneon 08-15-2023 Telephone [id number] Sylvia Herrera 1945 Date Provider Department Center 08/15/2023 ANISHA JACOBS JULIAN [facility] Family History Family history unknown: Yes [facility] Office Visiton 08-07-2023 Follow-up visit [id number] Sylvia Herrera 1945 Date Provider Department Center 08/07/2023 ANISHA JACOBS JULIAN Hernandez Family History Family history unknown: Yes Level of Service:49317 ID OFFICE/OUTPATIENT ESTABLISHED MOD MDM 30-39 MIN Reason for Visit and Comments: Follow-up [411055] - 6 mo f/u no stress test or tacrolimus result as of 08/06 - does she plan on having stress test? [facility] BMPon 04-08-2023 Creatinine [Mass/Vol] 1.3 mg/dL Normal 0.5-1.3 Fis her [facility] Comment on above: Performed By: #### 1 [id number], 6085086, [id number] ####Maciel [facility] [address] [place] [address] Urea nitrogen [Mass/Vol] 36 mg/dL High 5-21 [facility] Comment on above: Performed By: #### 1 [id number], 7468960, [id number] ####[facility] [address] [place] [address] Urea nitrogen/Creatinine [Mass ratio] 28 No Units High 10-20 [facility] Comment on above: Performed By: #### 1 8057147, 6176183, [id number] ####[facility] [address] [place] [address] Anion gap [Moles/Vol] 11 mmol/L Normal 6-16 [facility] Comment on above: Performed By: #### 1 2279132, 2396194, 02984714 ####[facility] [address] [facility] [place] [address] Calcium [Mass/Vol] 8.6 mg/dL Low 8.9-11.1 [facility] Comment on above: Performed By: #### 1 6514677, 8005261, 53105521 ####[facility] [address] [place] [address] Chloride [Moles/Vol] 99 mmol/L Low 101-111 [facility] Comment on above: Performed By: #### 1 5148441, 6091106, [id number] ####[facility] [address] [place] [address] CO2 [Moles/Vol] 25 mmol/L Normal 21-31 [facility] Comment on above: Performed By: #### 1 8879935, 5785403, 83007980 ####[facility] [address] [place] [address] Glucose [Mass/Vol] 124 mg/dL Normal 55-199 [facility] Comment on above: Result Comment: If t his glucose result represents a fasting glucose, interpretation should refer to the following reference range: 55-99 mg/dL Performed By: #### 1 5315222, 5983038, 23716264 ####[facility] [address] [place] [address] Potassium [Moles/Vol] 4.1 mmol/L Normal 3.5-5.3 [facility] Comment on above: Performed By: #### 1 3400152, 5174989, 18113288 ####[facility] [address] [place] [address] Sodium [Moles/Vol] 131 mmol/L Low 135-145 [facility] Comment on above: Performed By: #### 1 3795539, 9851294, 33959592 ####[facility] [address] [place] [address] CHEMISTRYOrdered By: SYSTEM SYSTEM on 04-08-2023 Anion gap [Moles/Vol] 11 mmol/L Normal 6 - 16 mEq/L F [facility] Remisol Calcium [Mass/Vol] 8.6 mg/dL Low 8.9 - 11. 1 mg/dL FT Remisol Chloride [Moles/Vol] 99 mmol/L Low 101 - 1 11 mmol/L FT [facility] CO2 [Moles/Vol] 25 mmol/L Normal 21 - 31 mmol/L FT [facility] Creatinine [Mass/Vol] 1.3 mg/dL Normal 0.5 - 1.3 mg/dL [facility] Remisol GFR/1.73 sq M.predicted among non-blacks MDRD (S/P/Bld) [Vol rate/Area] 42 mL/min/1.73 m2 Low >=59mL/min/1 .73 m2 [facility] Chem S Glucose [Mass/Vol] 124 mg/dL Normal [...] 9.70 pg/mL Low 10.10 - 27.10 pg/mL [facility] Remisol Consent for Treatmenton Consent for Treatment [id number] #1.00CD:127 Normal [facility] Discharge Instructionson Discharge Instructions [id number] .[id number]:127 Normal [facility] ED Clinical Summaryon 2022 ED Clinical Summary [place] [id number] ED Clinical Summary Person Information Name: SYLVIA HERRERA [facility] Age: 77 Years : 1945 Sex: Female Language: Syriac PCP: DUYEN ROGERS CNP Marital Status: Single [...] 04/08/2023 08:56:01 04/08/2023 08:56:01 04/08/2023 08:56:01 ADDRESS: [address] [place] [address] [phone] PHYS DOC NOTES: MEDICAL INFORMATION: Prescriptions Given: [...] With: Address: When: DUYEN SUE [address] [facility] [facility] [place] [address] [phone] Business (1) In 3 days DIAGNOSIS: Chest pain; Hyponatremia Normal [facility] ED Note-Physicianon 04-08-20 ED Note-Physician Basic Information [...] and Complexity of Problems Differential Diagnosis: [] [facility] Data External documents reviewed: N/A [...] 6 Hr. (more content not included)... Normal [facility] Comment on above: Result Comment: Elec tronically [...] gland problems. ? Metabolic conditions, such as [place]'s disease or syndrome of inappropriate antidiuresis (SIAD). [...] Follow these instructions at home: ? Take grnz-cyi-qpxphfe and prescription medicines only as told by [...] Reviewed: 05/29/2022 Elsevier Patient Education ? 2022 nxtControl. Pulmonary Medicine Nonspecific Chest Pain, Adult Chest [...] health care (more content not included)... Normal [facility] ED Patient Summaryon 023 ED Patient Summary [place] [id number] Patient Discharge Instructions Person Information Name: SYLVIA HERRERA Age: 77 Years Arrival Date: 04/07/2023 21:18:46 Discharge Diagnosis: Chest pain; Hyponatremia Primary Care Physician: DUYNE ROGERS CNP Provider Information Primary Provider: Richard Ca DO [facility] Director:None The exam and treatment you received in the Emergency Department were for an urgent problem and are not intended as complete care. It is important that you follow up with a doctor, nurse practitioner, or physician?s emergency room physician assistant for ongoing care. If your symptoms [...] With: Address: When: DUYEN ROGERS [address] [place] [address] [phone] Business (1) In 3 days In the event that this physician does not participate in your insurance network, please consult with your insurance company to find a nearby participating provider. Patient Education Materials: Hyponatremia; Nonspecific Chest Pain, Adult A MESSAGE TO ALL PATIENTS REGARDING OPIOIDS PRESCRIPTION OPIOIDS: WHAT YOU NEED TO KNOW Prescription opioids can be used to help relieve xnhjfgio-tr-qfmots pain and are often prescribed following a [...] be struggling with addiction, tell your health home care liaison and ask for guidance or call [employer]?S National Helpline at 9-861-210-FJLS. v Source: [place] Departmen (more content not included)... Normal [facility] EMS Documentationon 04-08-20 EMS Documentation Please click on link to see report [id number] CiX5+prnDQolQUJDcGRmI TUoKvO8WIp9LASmz2KxGZ w6VHcuTDI4ZiZaOUpwIFM b TNK4FGXjHVkyBk4GROR4O tU0Ug9XkT7pCQLyeuWgWC RSY79aSYofXyI3Rt5EIZG 4CBo0Pk2+ICAg ICAgICAgICAgICAgICAgI CAgICAgICAgICAgICAgIC AgICAgICAgICAgICAgICA gICAgICAgICAg ICAgICAgICAgICAgICAgI IEiWZXFJbAgIB1wbi7TMY r2vkUpSPe7HMN5GLflHQE wMDAwMDMyIDAw ZAIiUU7BFnPbCOGuWGA3K YgmMOQoYQPsvo8DXHJgQI DmBNS5KUAuEYBuYKTtDKv wMDAwMDAxODM3 FPSjELRvJB7MKzSrXTXjT LM3ScuuSPJePWHyyk5UBB AwMDAwMjIyOCAwMDAwMCB uDQowMDAwMDAy XsgdDMFhKIUlOB1MWkMsQ DAwMDIzNTYgMDAwMDAgbg 4WIXBlYLAxXpG1HnNpAXL wMCBuDQowMDAw ODGvTQXxTZTaVDCfTN1PS tWfIDZqXWK4TQxeUSShVJ Ynze3XMSGcLEDwTws0VKS wMDAwMCBuDQow BKMiRARoVmK5JESkFTWgH S1IDcIqFRUkOTJ4HLHmAI DkXMEmyq0ZSWLxASEjKLY 5NSAwMDAwMCBu DZciFDAfGZE1XyMnQXEkF FZuYG6ZDrQsDUEnVCF2Xg ouOPJoYOZlvr9OJUIaGOY uFFv2RVLtPYTv BOKmYWmdFEJcWFV7XlC2M IWbXABmXB3HHmDwQWPvTT N5HmjfQZCxRTSdka7LTUI wMDAwNTgwNSAw FFRiOEPzAWhrGDTbKVP8Q NS0SOKrTDKhQK4QMnTfMS GxNLV0VrbrKDYzCXKdxh9 KMDAwMDAwNjc1 MyAwMDAwMCBuDQowMDAwM AR1FIC9BLWqUNIkLS2HXa AwMDAwMDczOTYgMDAwMDA ykl0QIZEuBZEi OTkyMiAwMDAwMCBuDQowM YIeUVM2AGR8JODbQSDjYC 9XApCyRNpfVITFMwc0Nx4 JRCBbPENEMUFD Z4IbRKJRPebOQTJ5UEG3X Ok9JGJiPIjmXyQ3Nvi4Kc KXCBY2Jmh8ZNsBSSY9MFc 8VONIR2Q3DTxG NTZDRTA+ZTmsPKXumpQ7D gY9QykjGz3eaTP1SXVqAh owC7u4NANsRwenF640waK lIChXZUpYRnhO CfUgKyW4vMGCFCWXI9K4R 56oQ77mIP8DDEubQ6c0Cq iEYWD3CGjElIfICmVoY33 yCCqvYBGhP7Qj TalxhYasLRR3P1TeoTN0B 0eht21lDRTRPHyAd6haGI Y8C62UCtaDLnbDubJVN5t 7zOEOfER0Xmnp A0fcNxDuUZIFMHDhFpMaZ okTE0HMD0fUBu8xDl2+IC AgICAgICAgICAgICAgICA gICAgICAgICAg ICAgICAgICAgICAgICAgI CAgICAgICAgICAgICAgIC AgICAgICAgICAgICAgICA gICAgICAgICAg ICAgICAgICAgICAgICAgI CAgICAgICAgICAgICAgIC AgICAgICAgICAgICAgICA gICAgICAgICAg ICAgICAgICAgICAgICAgI CAgICAgICAgICAgICAgIC AgICAgICAgICAgICAgICA gICAgICAgICAg ICAgICAgICAgICAgICAgI CAgICAgICAgICAgICAgIC AgICAgICAgICAgICAgICA gICAgICAgICAg ICAgICAgICAgICAgICAgI CAgICAgICAgICAgICAgIC AgICAgICAgICAgICAgICA gICAgICAgICAg ICAgICAgICAgICAgICAgI CAgICAgICAgICAgICAgIC AgICAgICAgICAgICAgICA gICAgICAgICAg ICAgICAgICAgICAgICAgI CAgICAgICAgICAgICAgIC AgICAgICAgICAgICAgICA gICAgICAgICAg MQVZKlM0HHO8aQKfWn2VT B9BMBSNB4XHXu4YUYZxHE 1hnp9ELPdFV36pnRIeCYD sLJNeLDGZNr0Z dSVkVOJ2pE8hTHt9AXAtL ascJyg9DX9LE049vUrtny HlFGRoDGHITl5CDVtjJU0 vECGzNRPdCs3d ZQovUGFnZXMgMiAwIFIKL 7F6cLJuE6KdtZFpy9kPBy 6DXvVgVK0knc1CVTk6MTT iy5VaLSr7GFqz KusqcAUrKU4WwMP5MMBzY 73pEOucPPZaE2OtNPKyAB csVhN7Eup+Jm2Lu4MmDJA mGFh6nERhCISd YGDLYFBgYLjCAyLhQAEKU meyDxX8NtOdOEBp1NLiMG Lr75YGKrIgSvTaTXrfPlK qkTHB9VonXmNL MWez6CrKCzRNOfWAagG0F LoqDZGGUxnWNJe1FqEpWt nF0GiYkfLo5T1GPDCMWyl ZFmHqTSA2gpFf rE0CAI5hl2FoVCcDKkktC CKhKezOWch0Mv7Nr151CZ 50cyBbMjQgMCBSXQovTWV ujXBZq9fuEqIf VGX0BAPjTkiiLCbrHBNnT F06GOEsLOZCWo2UABEjoH QdVUKjKKoOX0vAZwrzN1O cTHpEX3oeXwI0 IDggMCBSCj4+Cj4+Ci9Ue QPfHA4HBSmfJo3+DQplbm OnErvJVt8KQXNoVK4tpy5 VXSlNH4FMz8is JpFrUIP4EIVxReytSJjsX dofqOZdHY5CiWY9EBEzC9 9aINerAYOqY0OzVIx7Gb3 SZXNvdXJjZXMg TQwUC8fFLjskD8BcSEjUX 9wmZwK6DBF1YVXxXrb+Pg o+AcykI0MnuBohYPFqBh9 ybQovVHlwZSAv RB8ejvIpgIx+Jl8Xn6PrX VReKPp9dMOD1DDw6FUwHK BgUVF7YVObyhRSUHpv5Hr XyOPlMtCztDAz M2iwRHPb29bCDFJeDlyQn 1zjNaYp4DvJTK+YK9TCmu NoArDqxn5AFOsndxHaoBR dMQ8SOlQdKT8s av9GMFq3NMBms4DfLUh4G GwfOg8jM51fwe6ghOuwC4 EgMQo+Qu0GRD1bg6CsQTr TUuVjOSXdd6Pn PKy6KAlbMy0cH33cho8gx ZlcY3XtEApeFOEzPQhtPE ogMAovTFcgMQovTUwgNAo gE7BbpUW3WOet N4QaYHx+Mb0NXX9gi5XzR MiXFzRuGEPmj7HeJVd7KR wwCg9oL96ski1xtKbrT0Q sSQ1jQjNgZqwd TEMgMAovTEogMAovTFcgM CjeNXttYJumO3WfySL0XT boZ1CoTN1aZqLeVps+Pg0 MGA4cw9KfHQqU PrLnULFfc4JbEHo1XMxuP u9qI44mwb1jcFczD0PmRV 4wODIzNQo+Fd2DYB2mv0A qDQoNCjEzIDAg p0FdFAx2RZhyFu2cW11fm d3rpAujZ8UnFH9wRVL3QK ovTEMgMAovTEogMAovTFc gMQovTUwgNAov O8WbwZE3QTmdX7QuOU5hE TA5OAo+Gq4RXM5eu9GzXW hOEvK8FIYnu6AqVVc2GZd xGBG2gyy3GNhn Ukf4KRGnJSDfFV63BEKsO Ee5De5WG0SrgEGmmo5HoN MfHNDWN0MxXZJdsvjmGMc CS9YpgE4pN6Ob P8TpQ5WgvrfgMWGRDdahY 58gxmMhQQswFBZ3RKNgBI Z0OA4ON2E9nDKdDAMymJE 4WEl3kpRuTHaj ZhPcY5Dgu51uGBiUW7MwR CxjSil5UhHqHbt4QfWoQh j7S95ER3LgTTbyFfe7MbO vWae8NzClQsm1 L07HY5IsjTNwxvNkNHMtF YpqMxSqT4Neu92HjXEyXZ HCB56tBNk+JpqzQ3rjMQa aK6F8jTXrLsm+ QflmRMxnQRZqXER6zLGjp go+Qm8LRG7gi5DiHMjOOo N3SJDzv9LuDXe6IRbpOEW 8ihb3LIwbDuw7 WRZgMCXpJP49EUBnFMe0I t8FQ1AoxIEaao8XtIKnJD GOZ9LrHKMwpeulFEnWG8P ikE8tL9DsM7Lq V1AjspwkXDITRrjgP68em iVqQYg9UMH9NgY4UWP0Sd 90Nu2PM7I4oCPaMNLnjZM 4CTk2mlUaCVni GvMqK5Yqs33hZYzMA5Zwv I4njsVbYG15YCoiQW5mGT hcXDypYBGxZj7UiaLcCAT gWzAgMSAwIDFd Za9MoW9ssGuwhjK0nJHkR ibbOnUzY2Dvv25uJXh6RO suWrSrQqThVDV4SWUzZKM 6OXSqYKH1NQfa ZbLfUpHoYTJ4MYKxRKE8B ODbKPK2PQnyEG3yGArpMZ exMSMrAq5LfQ9vyTebfcM 5cGUgMgovTiAx Cj4+Ilj3Ga7BZPKoZA10M edzVI27PegcLM76FyetUn 6NZWXjHW32YqFsLH86GrJ yQY97MoEdZy3M y64awO6dVcEiWH2VL1Z3m pQ3uQ9wGAonPXTcWq7UIG EBZw4bKn2+Ze4WtFWavH8 nVHlwZSAyCj4+ He6DbJGuGX2LRNX7XIDbI j4+LKqntdIkRegEYu6HVX BqNUAbIxnRSnd0Yf1BUWQ vBl2amGPsUXyO NU0LW3WhD40hUFgRT9Xca 1GdzwOxmhZRl003kjFvWB xqKPTGLDseEW1af5Ixzhx zO2tvGZ76pOU0 BTtRP5T3LgV4wINfP8B5p TWrYf4Ff1TkfEDtHLKoSZ bxOUIZYh0VjQSaYB5Ht58 0Cj4+DQplbmRv NenXAf8EZXnlRGDiEkyQM af5Ir5ONECwGz5jxUSrYY hKLW6LQ8WxB65sRZwGN1C KPCB2t8TauGnt Gz1zHHhEC35cBAQbzB1pV GoGATKttQx8sVxHY6EjS6 zhgHR2KDuKAJ3l (more content not included)... Normal [facility] EMS Documentation Please click on link to see report Normal [facility] Comment on above: Result Comment: Miss ing Attachment - attachment exceeds size limitation [id number] Can be viewed in source system EMS Documentation [id number]# 1.00CD:127 Normal [facility] Monitor Recordon 04-08-2023 Monitor Record [id number]# 1.00CD:127 Normal [facility] Progress Note-Nurseon 2022 Progress Note-Nurse Pt. requesting food, Dr. Ca aware. Pt. given food per verbal order from Dr. Ca. Normal [facility] Troponin 0 Hr.on 04-08-2023 Troponin I.cardiac [Mass/Vol] 9.20 pg/mL Low 10.10-27.10 [facility] Comment on above: Result Comment: The 95% CI (Confidence Interval) PPV (Positive Predictive Value) for myocardial infarction in females is 38 pg/mL, in males 51 pg/mL. The results should be used in conjunction with clinical conditions of myocardial infarction. (Access High Sensitivity Troponin I Instructions For Use, [employer], July 2018) Performed By: #### 2 049129, 10190590, 3520427, 6168801, 75391363, 71069865 ####[facility] [address] [place] [address] Troponin 3 Hr.on 04-08-2023 Troponin I.cardiac [Mass/Vol] 9.70 pg/mL Low 10.10-27.10 [facility] Comment on above: Result Comment: The 95% CI (Confidence Interval) PPV (Positive Predictive Value) for myocardial infarction in females is 38 pg/mL, in males 51 pg/mL. The results should be used in conjunction with clinical conditions of myocardial infarction. (Access High Sensitivity Troponin I Instructions For Use, [employer], July 2018) Performed By: #### 1 [id number] ####[facility] [address] [place] [address] Troponin 6 Hr.on 04-08-2023 Troponin I.cardiac [Mass/Vol] 11.10 pg/mL Normal 10.10-27.10 [facility] Comment on above: Result Comment: The 95% CI (Confidence Interval) PPV (Positive Predictive Value) for myocardial infarction in females is 38 pg/mL, in males 51 pg/mL. The results should be used in conjunction with clinical conditions of myocardial infarction. (Access High Sensitivity Troponin I Instructions For Use, [employer], July 2018) Performed By: #### 1 1077390, 4005654, [id number] ####[facility] [address] [place] [address] XR Chest Single Viewon 04-08 XR Chest [...] mGy = na DAP = na Normal [facility] eGFRon 04-08-2023 GFR/1.73 sq M.predicted among non-blacks MDRD (S/P/Bld) [Vol rate/Area] 42 mL/min/1.73 m2 Low >=59 [facility] Comment on above: Order Comment: Order added by Discern Expert. Result Comment: Glass Calibrator brennan kidney disease could be indicated at eGFR's of less than 60 mL/min/1.73m2. Kidney failure is indicated at less than 15 mL/min/1.73m2. Performed By: #### 1 5457330, 1257384, 58007179 ####[facility] [address] [place] [address] Auto Diffon 04-07-2023 Basophils/100 WBC (Bld) 0.4 % Normal 0.0-2.0 [facility] Comment on above: Order Comment: Order Added by Discern Expert. Performed By: #### 2 940581, 46564049, 2622981, 8030373, 93198498, 05198202 ####[facility] [address] [place] [address] Basophils/Leukocytes Auto (Bld) [Pure # fraction] 0.0 E9/L Normal 0.0-0.2 [facility] Comment on above: Order Comment: Order Added by Discern Expert. Performed By: #### 2 236215, 75474396, 6325381, 2673621, 19263981, 14371977 ####[facility] [address] [place] [address] Eosinophils/100 WBC (Bld) 3.0 % Normal 0.0-8.0 [facility] Comment on above: Order Comment: Order Added by Discern Expert. Performed By: #### 2 752826, 07234598, 0122910, 5643812, 75686717, 51206423 ####[address] [address] Eosinophils/Leukocytes Auto (Bld) [Pure # fraction] 0.2 E9/L Normal 0.0-0.5 [facility] Comment on above: Order Comment: Order Added by Discern Expert. Performed By: #### 2 092297, 28440117, 6126930, 6404784, 69228041, 74205587 ####[address] [address] Lymphocytes/100 WBC (Bld) 15.4 % Normal 14.0-50.0 [facility] Comment on above: Order Comment: Order Added by Discern Expert. Performed By: #### 2 175519, 60224319, 5109466, 3708818, 77512962, 14582569 ####[address] [address] Lymphocytes/Leukocytes Auto (Bld) [Pure # fraction] 1.1 E9/L Normal 1.0-4.0 [facility] Comment on above: Order Comment: Order Added by Discern Expert. Performed By: #### 2 445111, 90613777, 8303333, 4623268, 99339410, 84829555 ####[address] [address] Monocytes/100 WBC (Bld) 12.8 % Normal 4.0-14.0 [facility] Comment on above: Order Comment: Order Added by Discern Expert. Performed By: #### 2 248845, 42692266, 0652711, 1899907, 73113705, 55175331 ####[address] [address] Monocytes/Leukocytes Auto (Bld) [Pure # fraction] 0.9 E9/L Normal 0.2-1.0 [facility] Comment on above: Order Comment: Order Added by Discern Expert. Performed By: #### 2 700859, 61225592, 7923269, 6592115, 18304112, 43527758 ####[facility] [address] [place] [address] Neutrophils/100 WBC (Bld) 68.4 % Normal 36.0-75.0 [facility] Comment on above: Order Comment: Order Added by Discern Expert. Performed By: #### 2 725456, 18435143, 5076920, 8210711, 52446496, 91608208 ####[facility] [address] [place] [address] Neutrophils/Leukocytes Auto (Bld) [Pure # fraction] 5.0 E9/L Normal 2.0-7.5 [facility] Comment on above: Order Comment: Order Added by Discern Expert. Performed By: #### 2 705789, [id number], 7161119, 9888351, 25642951, [id number] ####[id number] [place] [address] BMP 04-07-2023 Creatinine [Mass/Vol] 1.5 mg/dL High 0.5-1.3 [facility] Comment on above: Performed By: #### 2 756830, 42129732, 9834578, 8038443, 32245060, 54019939 ####[facility] [address] [place] [address] Urea nitrogen [Mass/Vol] 40 mg/dL High 5-21 [facility] Comment on above: Performed By: #### 2 885713, 28113838, 0664847, 6596524, 26140275, 64359950 ####[facility] [address] [place] [address] Urea nitrogen/Creatinine [Mass ratio] 27 No Units High 10-20 [facility] Comment on above: Performed By: #### 2 499803, 75532991, 0016371, 1054401, 12988153, 31253005 ####[facility] [address] [place] [address] Anion gap [Moles/Vol] 11 mmol/L Normal 6-16 [facility] Comment on above: Performed By: #### 2 932887, 14799162, 1391455, 5916314, 37644793, 45443644 ####[facility] [address] [place] [address] Calcium [Mass/Vol] 8.6 mg/dL Low 8.9-11.1 [facility] Comment on above: Performed By: #### 2 307212, 15002194, 4372588, 5710080, 35213443, 27606286 ####[facility] [address] [place] [address] Chloride [Moles/Vol] 96 mmol/L Low 101-111 [facility] Comment on above: Performed By: #### 2 409230, 01120099, 8276062, 4099103, 51862772, 16319882 ####[facility] [address] [place] [address] CO2 [Moles/Vol] 24 mmol/L Normal 21-31 [facility] Comment on above: Performed By: #### 2 172253, 62572875, 5792187, 3402649, 15862129, 31772087 ####[facility] [address] [place] [address] Glucose [Mass/Vol] 139 mg/dL Normal 55-199 [facility] Comment on above: Result Comment: If t his glucose result represents a fasting glucose, interpretation should refer to the following reference range: 55-99 mg/dL Performed By: #### 2 438276, 11880942, 8812238, 7249056, 43267370, 60844832 ####[facility] [address] [place] [address] Potassium [Moles/Vol] 4.4 mmol/L Normal 3.5-5.3 [facility] Comment on above: Performed By: #### 2 646468, 99027614, 5296291, 4411079, 93666929, 69471981 ####[facility] [address] [place] [address] Sodium [Moles/Vol] 127 mmol/L Low 135-145 [facility] Comment on above: Performed By: #### 2 643772, 46088233, 7702362, 7709874, 04964432, 91172998 ####[facility] [address] [place] [address] CBC w/ Auto Diffon 3 Erythrocyte distribution width (RBC) [Ratio] 13.0 % Normal 10.9-14.2 [facility] Comment on above: Performed By: #### 2 023700, 37722507, 3648035, 6144947, 63571283, 54002946 ####[facility] [address] [place] [address] Hematocrit (Bld) [Volume fraction] 38.4 % Normal 34.0-46.0 [facility] Comment on above: Performed By: #### 2 084687, 95430729, 9589684, 2172436, 35544538, 27153063 ####[facility] [address] [place] [address] Hemoglobin (Bld) [Mass/Vol] 12.6 g/dL Normal 12.0-16.0 [facility] Comment on above: Performed By: #### 2 401453, [id number], 9186766, 9841730, [id number], [id number] ####[facility] [address] [place] [address] MCH (RBC) [Entitic mass] 27.9 pg Normal 27.0-34.0 [facility] Comment on above: Performed By: #### 2 296772, [id number], 8892709, 0157502, 51250234, [id number] ####[facility] [address] [place] [address] MCHC (RBC) [Mass/Vol] 32.7 g/dL Normal 31.4-36.0 [facility] Comment on above: Performed By: #### 2 475849, 42893197, 7837737, 5433793, 30234458, 30989144 ####[address] [address] MCV (RBC) [Entitic vol] 85.3 fL Normal 80.0-100.0 [facility] Comment on above: Performed By: #### 2 575892, 05527716, 0779601, 5273440, 96738230, 54301369 ####[address] [address] Platelet mean volume (Bld) [Entitic vol] 7.3 fL Normal 6.4-10.8 [facility] Comment on above: Performed By: #### 2 849508, 22474389, 1888562, 6660362, 38000252, 36904161 ####[address] [address] Platelets (Bld) [#/Vol] 167.0 E9/L Normal 150.0-500.0 [facility] Comment on above: Performed By: #### 2 198775, 63263854, 4938806, 8957664, 29717786, 58721044 ####[address] [address] RBC (Bld) [#/Vol] 4.5 E12/L Normal 4.3-5.9 [facility] Comment on above: Performed By: #### 2 490457, 95565364, 2767656, 8950545, 21351954, 19926505 ####[address] [address] WBC corrected for nucl RBC Auto (Bld) [#/Vol] 7.3 E9/L Normal 4.0-11.0 [facility] Comment on above: Performed By: #### 2 671604, 49219801, 1009191, 0744716, 18949291, 38515537 ####[facility] [address] [place] [address] CHEMISTRYOrdered By: SYSTEM SYSTEM on 04-07-2023 Anion gap [Moles/Vol] 11 mmol/L Normal 6 - 16 mEq/L F [facility] Remisol Calcium [Mass/Vol] 8.6 mg/dL Low 8.9 [...] 167.0 E9/L Normal 150.0 - 500.0 E9/L [facility] HemeAutoSS RBC (Bld) [#/Vol] 4.5 E12/L Normal 4.3 - 5.9 E12/L [facility] HemeAutoSS WBC corrected for nucl RBC Auto (Bld) [#/Vol] 7.3 E9/L Normal 4.0 - 11.0 E9/L [facility] HemeAutoSS PT & PTTon 04-07-2023 aPTT Coag (PPP) [Time] 27.1 second(s) Normal 25.1-36.5 [facility] Comment on above: Result Comment: Para meter [...] the same coagulation reagent and instrumentation as [facility]. Currently there are no coagulation studies available worldwide for children to 14 days, and no normal ranges. Heparin therapeutic range (represented by Anti-Factor Xa activity of 0.2 - 0.4 U/mL) corresponds to PTT of 56.6 - 109.0 sec. Performed By: #### 2 694751, 84949025, 7283845, 0717527, 52929881, 47589481 ####[facility] [address] [place] [address] INR Coag (PPP) [Relative time] 1.2 {INR} Invalid Interpretation Code [facility] Comment on above: Result Comment: INR results are specifically intended to assess patients stabilized on long-term Anticoagulation therapy suggested INR?s ?Less Intensive Anticoagulation? 2.0 ? 3.0 Conventional Range 3.0 ? 4.5 Performed By: #### 2 149405, 85823456, 1896245, 6159466, 77366007, 49594256 ####[facility] [address] [place] [address] PT Coag (PPP) [Time] 12.9 second(s) High 9.4-12.5 [facility] Comment on above: Result Comment: 15 d [...] the same coagulation reagent and instrumentation as [facility]. Currently there are no coagulation studies available worldwide for children to 14 days, and no normal ranges. Performed By: #### 2 987356, 88504030, 1546687, 0389213, 62301352, 09827843 ####[facility] [address] [place] [address] Pre-Arrival Noteon 3 Pre-Arrival Note Pre-Arrival Summary Name: , [facility] Current Date: 04/07/2023 21:19:11 EDT Gender: Female Date of : Age: 77 Pre-Arrival Type: EMS ETA: 04/07/2023 21:15:00 EDT Primary Care Physician: Presenting Problem: chest pain Pre-Arrival User: Natalia Fischer RN Referring Source: Location: Completion Date/Time: 04/07/2023 21:06:00 [facility] Emergency Department Pre-Hospital Report Form Vital Signs: Pre-Hospital Report: Treatment in Route: Response to Treatment: Misc. Issues: Normal [facility] eGFRon 04-07-2023 GFR/1.73 sq M.predicted among non-blacks MDRD (S/P/Bld) [Vol rate/Area] 35 mL/min/1.73 m2 Low >=59 [facility] Comment on above: Order Comment: Order added by Discern Expert. Result Comment: Glass Calibrator brennan kidney disease could be indicated at eGFR's of less than 60 mL/min/1.73m2. Kidney failure is indicated at less than 15 mL/min/1.73m2. Performed By: #### 2 209452, 98760322, 7396350, 3407745, 53723506, 82438449 ####[facility] [address] [place] [address] Orders Onlyon 03-08-2023 Orders Only [id number] Sylvia Herrera 1945 F Date Provider Department Center 03/08/2023 ANISHA JACOBS [facility] CARD [place] Count Family History Family history unknown: Yes Normal [facility] INFLUENZA A AND B AGon 03-05 INFLUANEGH SEE BELOW Normal [facility] Comment on above: Result Comment: Nega tive for Flu A protein angiten. Infection due to Flu A cannot be ruled out. Flu A angiten in the sample may be below the detection limit of the test. Performed By: #### E RUR #### [facility] [address] [place] [address] Dr. Hardeep Rivera INFLUBNEGH SEE BELOW Normal [facility] Comment on above: Result Comment: Nega tive for Flu B protein antigen. Infection due to Flu B cannot be ruled out. Flu B antigen in the sample may be below the detection limit of the test. Performed By: #### E RUR #### [facility] [address] [place] [address] Dr. Hardeep Rivera INFLUENZA A AG Negative Normal NEGATIVE SEE COMMENT [facility] Comment on above: Performed By: #### E RUR #### [facility] [address] [place] [address] Dr. Hardeep Rivera INFLUENZA B AG Negative Normal NEGATIVE SEE COMMENT [facility] Comment on above: Performed By: #### E RUR #### [facility] [address] [place] [address] Dr. Hardeep Rivera SYMPTOMATIC COVID-19 ANTIGEN on 03-05-2023 EUA Statement SEE BELOW Normal [facility] Comment on above: Result Comment: [...] revoked sooner. Performed By: #### C VDAGS ####[facility] [address] [place], [place] [address]Dr. Hardeep Rivera SARS-CoV-2 (COVID-19) RNA ULICES+probe Ql (Unsp spec) Positive Abnormal NEGATIVE [facility] Comment on above: Performed By: #### C VDAGS ####[facility] [address] [place], [place] [address]Dr. Hardeep Rivera FK506 (TACROLIMUS) WHOLE BLO ODon 02-28-2023 Tacrolimus (FK506), Blood 5.8 ng/mL Normal 2.0-20.0 [facility] Comment on above: Result Comment: Trou gh (immediately following transplant) 15.0 . Trough (steady state, 2 weeks or more after transplant): 3.0 - 8.0 . Performed by LC-MS/MS technology. Performed By: #### F K506T ####[facility] [address] [place], [place] [address]Dr. Hardeep Rivera CBC AUTO DIFFon 02-14-2023 BASO # 0.0 103/ul Normal 0.0-0.1 [facility] Comment on above: Performed By: #### AKSHAT OLSONICRO #### [facility] [address] [place] [address] Dr. Hardeep Rivera Basophils/100 WBC (Bld) 0.5 % Normal 0.2-2.0 [facility] Comment on above: Performed By: #### Deedee PINON UMICRO #### [facility] [address] [place] [address] Dr. Hardeep Rivera EO # 0.2 103/ul Normal 0.0-0.7 [facility] Comment on above: Performed By: #### Deedee PINON UMICRO #### [facility] [address] [place] [address] Dr. Hardeep Rivera Eosinophils/100 WBC (Bld) 3.5 % Normal 0.9-7.0 [facility] Comment on above: Performed By: #### Deedee PINON UMICRO #### [facility] [address] [place] [address] Dr. Hardeep Rivera Erythrocyte distribution width (RBC) [Ratio] 12.3 % Normal 11.0-15.0 [facility] Comment on above: Performed By: #### Deedee PINON UMICRO #### [facility] [address] [place] [address] Dr. Hardeep Rivera Hematocrit (Bld) [Volume fraction] 38.7 % Normal 36.0-48.0 [facility] Comment on above: Performed By: #### Deedee PINON UMICRO #### [facility] [address] [place] [address] Dr. Hardeep Rivera Hemoglobin (Bld) [Mass/Vol] 12.6 g/dL Normal 12.0-16.0 [facility] Comment on above: Performed By: #### Deedee PINON UMICRO #### [facility] [address] [place] [address] Dr. Hardeep Rivera IG # 0.03 10e3/ul Normal 0.00-0.03 [facility] Comment on above: Performed By: #### AKSHAT OLSONICRO #### [facility] [address] [place] [address] Dr. Hardeep Rivera IG % 0.5 % Normal 0.0-0.5 [facility] Comment on above: Performed By: #### HARI OLSONRO #### [facility] [address] [place] [address] Dr. Hardeep Rivera LYMPH # 0.8 103/ul Critically low 1.2-3.8 [facility] Comment on above: Performed By: #### HARI OLSONRO #### [facility] [address] [place] [address] Dr. Hardeep Rivera Lymphocytes/100 WBC (Bld) 13.2 % Critically low 20.5-60.0 [facility] Comment on above: Performed By: #### HARI OLSONRO #### [facility] [address] [place] [address] Dr. Hardeep Rivera MANUAL DIFF REQ NO Normal [facility] Comment on above: Performed By: #### HARI OLSONRO #### [facility] [address] [place] [address] Dr. Hardeep Rivera MCH (RBC) [Entitic mass] 28.3 pg Normal 26.7-34.0 [facility] Comment on above: Performed By: #### HARI OLSONRO #### [facility] [address] [place] [address] Dr. Hardeep Rivera MCHC (RBC) [Mass/Vol] 32.6 g/dL Normal 29.9-35.2 [facility] Comment on above: Performed By: #### HARI OLSONRO #### [facility] [address] [place] [address] Dr. Hardeep Rivera MCV (RBC) [Entitic vol] 87.0 fL Normal 81.0-99.0 [facility] Comment on above: Performed By: #### HARI OLSONRO #### [facility] [address] [place] [address] Dr. Hardeep Rivera MONO # 0.8 103/ul Normal 0.3-0.8 [facility] Comment on above: Performed By: #### HARI OLSONRO #### [facility] [address] [place] [address] Dr. Hardeep Rivera Monocytes/100 WBC (Bld) 12.9 % Critically high 1.7-12.0 [facility] Comment on above: Performed By: #### AKSHAT OLSONICRO #### [facility] [address] [place] [address] Dr. Hardeep Rivera NEUT # 4.4 103/ul Normal 1.4-6.5 [facility] Comment on above: Performed By: #### AKSHAT OLSONICRO #### [facility] [address] [place] [address] Dr. Hardeep Rivera Neutrophils/100 WBC (Bld) 69.4 % Normal 43.0-75.0 [facility] Comment on above: Performed By: #### Deedee PINON ICRO #### [facility] [address] [place] [address] Dr. Hardeep Rivera Platelet mean volume (Bld) [Entitic vol] 9.0 fL Critically low 9.5-13.5 [facility] Comment on above: Performed By: #### AKSHAT OLSONICRO #### [facility] [address] [place] [address] Dr. Hardeep Rivera PLT 205 103/ul Normal 150-450 [facility] Comment on above: Performed By: #### AKSHAT OLSONICRO #### [facility] [address] [place] [address] Dr. Hardeep Rivera RBC 4.45 106/ul Normal 4.20-5.40 [facility] Comment on above: Performed By: #### AKSHAT OLSONICRO #### [facility] [address] [place] [address] Dr. Hardeep Rivera WBC 6.3 103/ul Normal 4.0-11.0 [facility] Comment on above: Performed By: #### RANDALL OLSON #### [facility] [address] [place] [address] HEAD WO CONon [...] CAMERON NELSON Date: 2023-02-14 15:46 Normal [facility] ER URINE PROFILEon 3 Bilirubin Ql (U) Negative Normal NEGATIVE [facility] Comment on above: Performed By: #### RANDALL OLSON #### [facility] [address] [place] [address] Dr. Hardeep Rivera Clarity (U) CLEAR Normal CLEAR [facility] Comment on above: Performed By: #### RANDALL OLSON #### [facility] [address] [place] [address] Dr. Hardeep Rivera Color (U) LT. YELLOW Normal YELLOW [facility] Comment on above: Performed By: #### RANDALL OLSON #### [facility] [address] [place] [address] Dr. Hardeep FRANCIS A micrscopic examination will be performed if indicated. Normal [facility] Comment on above: Performed By: #### Deedee PINON UMICRO #### [facility] [address] [place] [address] Dr. Hardeep Rivera Glucose Ql (U) Negative Normal NEGATIVE [facility] Comment on above: Performed By: #### Deedee PINON UMICRO #### [facility] [address] [address] [address] Hardeep Rivera Hemoglobin Ql (U) TRACE-INTACT Abnormal NEGATIVE [facility] Comment on above: Performed By: #### Deedee PINON UMICRO #### [facility] [address] [place] [address] Dr. Hardeep Rivera Ketones Ql (U) Negative Normal NEGATIVE [facility] Comment on above: Performed By: #### Deedee PINON UMICRO #### [facility] [address] [place] [address] Dr. Hardeep Rivera LEUKOCYTES Negative Normal NEGATIVE [facility] Comment on above: Performed By: #### Deedee PINON UMICRO #### [facility] [address] [place] [address] Dr. Hardeep Rivera Nitrite Ql (U) Negative Normal NEGATIVE [facility] Comment on above: Performed By: #### Deedee PINON UMICRO #### [facility] [address] [place] [address] Dr. Hardeep Rivera pH (U) 7.0 [pH] Normal 5-9 [facility] Comment on above: Performed By: #### Deedee PINON UMICRO #### [facility] [address] [place] [address] Dr. Hardeep Rivera Protein (U) [Mass/Vol] 30 mg/dL Abnormal NEGAT PEARL/ TRACE [facility] Comment on above: Performed By: #### Deedee PINON UMICRO #### [facility] [address] [place] [address] Dr. Hardeep Rivera SPEC GRAVITY 1.010 Normal 1.005-<=1.[address] [facility] Comment on above: Performed By: #### HARI OLSONRO #### [facility] [address] [address] [address] Hardeep Rivera UR MICRO IND INDICATED Normal [facility] Comment on above: Performed By: #### HARI OLSONRO #### [facility] [address] [address] [address] Hardeep Rivera Urobilinogen Qn (U) 0.2 {Kevon'U}/dL Normal 0.2 - 1. 0 [facility] Comment on above: Performed By: #### HARI OLSONRO #### [facility] [address] [address] [address] Hardeep Rivera PROF 14(COMP METB)on 023 Albumin [Mass/Vol] 3.5 g/dL Normal 3.4-5.0 [facility] Comment on above: Performed By: #### H STROPN, CMP, TSH ####[facility] [address] [address]Dr. Hardeep Rivera Albumin/Globulin [Mass ratio] 1.2 {ratio} Normal [facility] Comment on above: Performed By: #### H STROPN, CMP, TSH ####[facility] [address] [place] [address]Dr. Hardeep Rivera ALP [Catalytic activity/Vol] 153 U/L Critically high 46-116 [facility] Comment on above: Performed By: #### H STROPN, CMP, TSH ####[facility] [address] [place] [address]Dr. Hardeep Rivera ALT [Catalytic activity/Vol] 21 U/L Normal 14-59 [facility] Comment on above: Performed By: #### H STROPN, CMP, TSH ####[facility] [address] [place] [address]Dr. Hardeep Rivera Anion gap [Moles/Vol] 9.3 mmol/L Normal [facility] Comment on above: Performed By: #### H STROPN, CMP, TSH ####[facility] [address] [place] [address]Dr. Hardeep Rivera AST [Catalytic activity/Vol] 23 U/L Normal 15-37 [facility] Comment on above: Performed By: #### H STRONATHANIEL, CMP, TSH ####[facility] [address] [place] [address]Dr. Hardeep Rivera Bilirubin [Mass/Vol] 0.6 mg/dL Normal 0.2-1.0 [facility] Comment on above: Performed By: #### H STROPN, CMP, TSH ####[facility] [address] [place] [address]Dr. Hardeep Rivera Calcium [Mass/Vol] 8.4 mg/dL Critically low 8.5-10.1 Th [facility] Comment on above: Performed By: #### H STROPN, CMP, TSH ####[facility] [address] [place] [address]Dr. Hardeep Rivera Chloride [Moles/Vol] 96 mmol/L Critically low 98-107 [facility] Comment on above: Performed By: #### H STROPN, CMP, TSH ####[facility] [address] [place] [address]Dr. Hardeep Rivera CO2 [Moles/Vol] 29.3 mmol/L Normal 21.0-32.0 [facility] Comment on above: Performed By: #### H STROPN, CMP, TSH ####[facility] [address] [place] [address]Dr. Hardeep Rivera Creatinine [Mass/Vol] 1.16 mg/dL Critically high 0.55-1.02 [facility] Comment on above: Performed By: #### H STROPN, CMP, TSH ####[facility] [address] [place] [address]Dr. Hardeep Rivera EGFR-AF MARTINIQUAIS 55 mL/min/1.73m2 Critically low >=60 [facility] Comment on above: Performed By: #### H STROPN, CMP, TSH ####[facility] [address] [place] [address]Dr. Hardeep Rivera EGFR-NON AF MARTINIQUAIS 45 mL/min/1.73m2 Critically low >=60 [facility] Comment on above: Performed By: #### H TYLER CMP, TSH ####[facility] [address] [place] [address]Dr. Hardeep Rivera Globulin (S) [Mass/Vol] 2.9 g/dL Normal [facility] Comment on above: Performed By: #### H STRONATHANIEL CMP, TSH ####[facility] [address] [place] [address]Dr. Hardeep Rivera Glucose [Mass/Vol] 105 mg/dL Normal 74-106 [facility] Comment on above: Performed By: #### H TYLER CMP, TSH ####[facility] [address] [place] [address]Dr. Hardeep Rivera Potassium [Moles/Vol] 4.6 mmol/L Normal 3.5-5.1 [facility] Comment on above: Performed By: #### H TYLER CMP, TSH ####[facility] [address] [place] [address]Dr. Hardeep Rivera Protein [Mass/Vol] 6.4 g/dL Normal 6.4-8.2 [facility] Comment on above: Performed By: #### H TYLER CMP, TSH ####[facility] [address] [place] [address]Dr. Hardeep Rivera Sodium [Moles/Vol] 130 mmol/L Critically low 136-145 Th [facility] Comment on above: Performed By: #### H STRONATHANIEL, CMP, TSH ####[facility] [address] [place] [address]Dr. Hardeep Rivera Urea nitrogen [Mass/Vol] 27.0 mg/dL Critically high 7.0-18.0 [facility] Comment on above: Performed By: #### H STROPN CMP, TSH ####[facility] [address] [place] [address]Dr. Hardeep Rivera Urea nitrogen/Creatinine [Mass ratio] 23.3 mg/mg Normal [facility] Comment on above: Performed By: #### H STROPN, CMP, TSH ####[facility] [address] [address]Dr[address] Hardeep Rivera PROTIMEon 02-14-2023 INR Coag (PPP) [Relative time] 1.07 {INR} Normal [facility] Comment on above: Performed By: #### P T, PTT ####[facility] [address] [place] [address]Dr. Hardeep Rivera INR GUIDELINES SEE BELOW Normal [facility] Comment on above: Result Comment: EDMUND RED INR: 2.0 - 3.0 CONDITIONS NOT LISTED BELOW 2.5 - 3.5 FOR PROSTHETIC HEART VALVE REPLACEMENT 2.5 - 3.5 RECURRENT THROMBOSIS Performed By: #### P T, PTT ####[facility] [address] [place] [address]Dr. Hardeep Rivera PT Coag (PPP) [Time] 11.3 s Normal 9.0-11.6 [facility] Comment on above: Performed By: #### P T, PTT ####[facility] [address] [place] [address]Dr. Hardeep Rivera PTTon 02-14-2023 aPTT Coag (Bld) [Time] 29.1 s Normal 22.3-36.2 [facility] Comment on above: Performed By: #### P T, PTT ####[facility] [address] [place] [address]Dr. Hardeep Rivera TROPONIN, HIGH SENSITIVITYon 02-14-2023 HSTROP 10.4 pg/mL Normal 4.0-51.3 [facility] Comment on above: Result Comment: CUT- OFF POINTS HAVE BEEN ESTABLISHED BASED ON THE FOURTH UNIVERSAL DEFINITIONS OF MYOCARDIAL INFARCTION. THE UPPER REFERENCE LIMIT (URL) OF TROPONIN, DEFINED THE 99TH PERCENTILE OF cTnI DISTRIBUTION IN A REFERENCE POPULATION, HAS BEEN CONFIRMED THE DECISION THRESHOLD FOR AR DIAGNOSIS. Performed By: #### H STROPN, CMP, TSH ####[facility] [address] [place] [address]Dr. Hardeep Rivera TSHon 02-14-2023 TSH 1.237 uIU/mL Normal 0.358-3.740 [facility] Comment on above: Performed By: #### H STROPN, CMP, TSH ####[facility] [address] [address]Dr. Hardeep Rivera URINE MICROSCOPIC ONLYon BACTERIA NONE SEEN Normal NONE SEEN [facility] Comment on above: Performed By: #### E RUR, UMICRO #### [facility] [address] [address] [address] Hardeep Rivera Bacteria identified Cx Nom (U) NOT INDICATED Normal [facility] Comment on above: Performed By: #### E RUR, UMICRO #### [facility] [address] [address] [address] Hardeep Rivera CAST NONE SEEN Normal NONE SEEN [facility] Comment on above: Performed By: #### E RUR, UMICRO #### [facility] [address] [place] [address] Dr. Hardeep Rivera Crystals LM Nom (Urine sed) NONE SEEN Normal NONE SEEN [facility] Comment on above: Performed By: #### E RUR, UMICRO #### [facility] [address] [place] [address] Dr. Hardeep Rivera Epithelial cells LM Ql (Urine sed) NONE SEEN Normal NONE SEEN /RARE [facility] Comment on above: Performed By: #### E RUR, UMICRO #### [facility] [address] [place] [address] Dr. Hardeep Rivera MUCOUS NONE SEEN Normal NONE SEEN [facility] Comment on above: Performed By: #### E RUR, UMICRO #### [facility] [address] [place] [address] Dr. Hardeep Rivera RBC 0-2 Normal 0-2 [facility] Comment on above: Performed By: #### E RUR, UMICRO #### [facility] [address] [place] [address] Dr. Hardeep Rivera WBC NONE SEEN Normal NONE SEEN [facility] Comment on above: Performed By: #### E RUR, UMICRO #### [facility] [address] [place] [address] Dr. Hardeep Rivera XR CHEST 1 Von [...] JAZLYN DUBOSE Date: 2023-02-14 15:50 Normal [facility] FK506 (TACROLIMUS) WHOLE BLO ODon 02-13-2023 Tacrolimus (FK506), Blood 1.4 ng/mL Critically low 2.0-20.0 [facility] Comment on above: Result Comment: Trou gh (immediately following transplant) 15.0 . Trough (steady state, 2 weeks or more after transplant): 3.0 - 8.0 . Performed by LC-MS/MS technology. Performed By: #### E RUR #### [facility] [address] [address] [address] Hardeep Rivera PROF 14(COMP METB)on 023 Albumin [Mass/Vol] 3.5 g/dL Normal 3.4-5.0 [facility] Comment on above: Performed By: #### C MP ####[facility] [address] [place] [address]DrLaura Rivera Albumin/Globulin [Mass ratio] 1.2 {ratio} Normal [facility] Comment on above: Performed By: #### C MP ####[facility] [address] [place] [address]DrLaura Rivera ALP [Catalytic activity/Vol] 149 U/L Critically high 46-116 [facility] Comment on above: Performed By: #### C MP ####[facility] [address]ef[address]sp[address] [place] [address]DrLaura Rivera ALT [Catalytic activity/Vol] 19 U/L Normal 14-59 [facility] Comment on above: Performed By: #### C MP ####[facility] [address] [place] [address]DrLaura Rivera Anion gap [Moles/Vol] 11.7 mmol/L Normal Th [facility] Comment on above: Performed By: #### C MP ####[facility] S[address]zm[address] [place], [place] [address]Dr. Hardeep Miguel AST [Catalytic activity/Vol] 27 U/L Normal 15-37 [facility] Comment on above: Performed By: #### C MP ####[facility] Mzxbonlc[address] [place], [place] [address]Dr. Hardeep Rivera Bilirubin [Mass/Vol] 0.6 mg/dL Normal 0.2-1.0 [facility] Comment on above: Performed By: #### C MP ####[facility] Qsabqulteo[address] [place], [place] [address]Dr. Hardeep Rivera Calcium [Mass/Vol] 8.5 mg/dL Normal 8.5-10.1 [facility] Comment on above: Performed By: #### C MP ####[facility] Oixurylvs[address] [place], [place] [address]Dr. Hardeep Rivera Chloride [Moles/Vol] 96 mmol/L Critically low 98-107 [facility] Comment on above: Performed By: #### C MP ####[facility] Zshxcq[address]alt[address] [place], [place] [address]Dr. Hardeep Rivera CO2 [Moles/Vol] 28.1 mmol/L Normal 21.0-32.0 [facility] [place] Comment on above: Performed By: #### C MP ####[facility] Njew[address] [place], [place] [address]Dr. Hardeep Rivera Creatinine [Mass/Vol] 1.24 mg/dL Critically high 0.55-1.02 [facility] Comment on above: Performed By: #### C MP ####[facility] Sicsjyivxo[address] [place], [place] [address]Dr. Hardeep Rivera EGFR-AF MARTINIQUAIS 51 mL/min/1.73m2 Critically low >=60 [facility] Comment on above: Performed By: #### C MP ####[facility] Lwjewb[address] [place], [place] [address]Dr. Hardeep Rivera EGFR-NON AF MARTINIQUAIS 42 mL/min/1.73m2 Critically low >=60 [facility] Comment on above: Performed By: #### C MP ####[facility] [address] [place] [address]Dr. Hardeep Rivera Globulin (S) [Mass/Vol] 3.0 g/dL Normal [facility] Comment on above: Performed By: #### C MP ####[facility] [address] [place] [address]Dr. Hardeep Rivera Glucose [Mass/Vol] 141 mg/dL Critically high 74-106 T [facility] Comment on above: Performed By: #### C MP ####[facility] [address]ruub[address] [place] [address]Dr. Hardeep Rivera Potassium [Moles/Vol] 4.8 mmol/L Normal 3.5-5.1 [facility] Comment on above: Performed By: #### C MP ####[facility] Qgorh[address]jts[address] [place], [place] [address]Dr. Hardeep Rivera Protein [Mass/Vol] 6.5 g/dL Normal 6.4-8.2 [facility] Comment on above: Performed By: #### C MP ####[facility] Ympazhsmnp[address] [place], [place] [address]Dr. Hardeep Rivera Sodium [Moles/Vol] 131 mmol/L Critically low 136-145 Th [facility] Comment on above: Performed By: #### C MP ####[facility] Myelpinpnx[address] [place], [place] [address]Dr. Hardeep Rivera Urea nitrogen [Mass/Vol] 29.0 mg/dL Critically high 7.0-18.0 [facility] Comment on above: Performed By: #### C MP ####[facility] Xetok[address] [place], [place] [address]Dr. Hardeep Rivera Urea nitrogen/Creatinine [Mass ratio] 23.4 mg/mg Normal [facility] Comment on above: Performed By: #### C MP ####[facility] Qdolgxeptt[address] [place], [place] [address]Dr. Hardeep Rivera Telemedicineon 02-11-2023 Telemedicine [id number] Sylvia Herrera 1945 F Date Provider Department Center 02/11/2023 ANISHA JACOBS [facility] Family History Family history unknown: Yes Level of Service:27518 ID PHYS/QHP TELEPHONE EVALUATION 11-20 MIN [facility] 36on 01-16-[address] Rooney's office called today to make you aware that Duyen ODETTE Rogers started Sylvia on losartan 50mg daily on 01/03. She would've been taking it when she saw you on 01/07, but she did not tell us. You stopped her amlodipine and increased her metoprolol. FYI Normal [facility] BNPon 01-09-2023 Natriuretic peptide B (Bld) [Mass/Vol] 336.0 pg/mL Normal <=1,800.0 [facility] Comment on above: Performed By: #### C MP, TSH, BNP, T7 ####[facility] [address] [place] [address]Dr. Hardeep Rivera CBC AUTO DIFFon 01-09-2023 BASO # 0.0 103/ul Normal 0.0-0.1 [facility] Comment on above: Performed By: #### C BC #### [facility] [address] [address] [address] Hardeep Rivera Basophils/100 WBC (Bld) 0.4 % Normal 0.2-2.0 [facility] Comment on above: Performed By: #### C BC #### [facility] [address] [address] [address] Hardeep Rivera EO # 0.3 103/ul Normal 0.0-0.7 [facility] Comment on above: Performed By: #### C BC #### [facility] [address] [address] [address] Hardeep Rivera Eosinophils/100 WBC (Bld) 4.4 % Normal 0.9-7.0 [facility] Comment on above: Performed By: #### C BC #### [facility] [address] [address] [address] Hardeep Rivera Erythrocyte distribution width (RBC) [Ratio] 12.3 % Normal 11.0-15.0 [facility] Comment on above: Performed By: #### C BC #### [facility] [address] [place] [address] Dr. Hardeep Rivera Hematocrit (Bld) [Volume fraction] 43.3 % Normal 36.0-48.0 [facility] Comment on above: Performed By: #### C BC #### [facility] [address] [place] [address] Dr. Hardeep Rivera Hemoglobin (Bld) [Mass/Vol] 13.5 g/dL Normal 12.0-16.0 [facility] Comment on above: Performed By: #### C BC #### [facility] [address] [place] [address] Dr. Hardeep Rivera IG # 0.02 10e3/ul Normal 0.00-0.03 [facility] Comment on above: Performed By: #### C BC #### [facility] [address] [place] [address] Dr. Hardeep Rivera IG % 0.3 % Normal 0.0-0.5 [facility] Comment on above: Performed By: #### C BC #### [facility] [address] [place] [address] Dr. Hardeep Rivera LYMPH # 1.1 103/ul Critically low 1.2-3.8 [facility] Comment on above: Performed By: #### C BC #### [facility] [address] [place] [address] Dr. Hardeep Rivera Lymphocytes/100 WBC (Bld) 16.0 % Critically low 20.5-60.0 [facility] Comment on above: Performed By: #### C BC #### [facility] [address] [place] [address] Dr. Hardeep Rivera MANUAL DIFF REQ NO Normal [facility] Comment on above: Performed By: #### C BC #### [facility] [address] [place] [address] Dr. Hardeep Rivera MCH (RBC) [Entitic mass] 28.4 pg Normal 26.7-34.0 [facility] Comment on above: Performed By: #### C BC #### [facility] [address] [place] [address] Dr. Hardeep Rivera MCHC (RBC) [Mass/Vol] 31.2 g/dL Normal 29.9-35.2 [facility] Comment on above: Performed By: #### C BC #### [facility] [address] [place] [address] Dr. Hardeep Rivera MCV (RBC) [Entitic vol] 91.0 fL Normal 81.0-99.0 [facility] Comment on above: Performed By: #### C BC #### [facility] [address] [place] [address] Dr. Hardeep Rivera MONO # 1.0 103/ul Critically high 0.3-0.8 [facility] Comment on above: Performed By: #### C BC #### [facility] [address] [place] [address] Dr. Hardeep Rivera Monocytes/100 WBC (Bld) 14.7 % Critically high 1.7-12.0 [facility] Comment on above: Performed By: #### C BC #### [facility] [address] [place] [address] Dr. Hardeep Rivera NEUT # 4.4 103/ul Normal 1.4-6.5 [facility] Comment on above: Performed By: #### C BC #### [facility] [address] [place] [address] Dr. aHrdeep Rivera Neutrophils/100 WBC (Bld) 64.2 % Normal 43.0-75.0 [facility] Comment on above: Performed By: #### C BC #### [facility] [address] [place] [address] Dr. Hardeep Rivera Platelet mean volume (Bld) [Entitic vol] 9.5 fL Normal 9.5-13.5 [facility] Comment on above: Performed By: #### C BC #### [facility] [address] [place] [address] Dr. Hardeep Rivera PLT 238 103/ul Normal 150-450 [facility] Comment on above: Performed By: #### C BC #### [facility] [address] [address] [address] Hardeep Rivera RBC 4.76 106/ul Normal 4.20-5.40 [facility] Comment on above: Performed By: #### C BC #### [facility] [address] [address] [address] Hardeep Rivera WBC 6.8 103/ul Normal 4.0-11.0 [facility] Comment on above: Performed By: #### C BC #### [facility] [address] [address] [address] Hardeep Rivera FREE THYROXINE INDEX T7on FTI 3.96 Normal 1.30-4.50 [facility] Comment on above: Performed By: #### C MP, TSH, BNP, T7 ####[facility] [address] [place] [address]Dr. Hardeep Rivera T3U 35.0 % Normal 30.0-39.0 [facility] Comment on above: Performed By: #### C MP, TSH, BNP, T7 ####[facility] [address] [place] [address]Dr. Hardeep Rivera T4 [Mass/Vol] 11.30 ug/dL Normal 4.80-13.90 [facility] Comment on above: Performed By: #### C MP, TSH, BNP, T7 ####[facility] [address] [place] [address]Dr. Hardeep Rivera PROF 14(COMP METB)on 023 Albumin [Mass/Vol] 3.9 g/dL Normal 3.4-5.0 [facility] Comment on above: Performed By: #### C MP, TSH, BNP, T7 ####[facility] [address] [place] [address]Dr. Hardeep Rivera Albumin/Globulin [Mass ratio] 1.2 {ratio} Normal [facility] Comment on above: Performed By: #### C MP, TSH, BNP, T7 ####[facility] [address] [place] [address]Dr. Hardeep Rivera ALP [Catalytic activity/Vol] 151 U/L Critically high 46-116 [facility] Comment on above: Performed By: #### C MP, TSH, BNP, T7 ####[facility] [address] [place] [address]Dr. Hardeep Rivera ALT [Catalytic activity/Vol] 30 U/L Normal 14-59 [facility] Comment on above: Performed By: #### C MP, TSH, BNP, T7 ####[facility] [address]vs[address] [place] [address]Dr. Hardeep Rivera Anion gap [Moles/Vol] 15.6 mmol/L Normal Th [facility] Comment on above: Performed By: #### C MP, TSH, BNP, T7 ####[facility] [address] [place], [place] [address]Dr. Hardeep Rivera AST [Catalytic activity/Vol] 23 U/L Normal 15-37 [facility] Comment on above: Performed By: #### C MP, TSH, BNP, T7 ####[facility] [address] [place], [place] [address]Dr. Hardeep Rivera Bilirubin [Mass/Vol] 0.7 mg/dL Normal 0.2-1.0 [facility] Comment on above: Performed By: #### C MP, TSH, BNP, T7 ####[facility] [address] [place], [place] [address]Dr. Hardeep Rivera Calcium [Mass/Vol] 9.0 mg/dL Normal 8.5-10.1 [facility] Comment on above: Performed By: #### C MP, TSH, BNP, T7 ####[facility] [address] [place] [address]Dr. Hardeep Rivera Chloride [Moles/Vol] 97 mmol/L Critically low 98-107 [facility] Comment on above: Performed By: #### C MP, TSH, BNP, T7 ####[facility] [address] [place] [address]Dr. Hardeep Rivera CO2 [Moles/Vol] 26.1 mmol/L Normal 21.0-32.0 [facility] [place] Comment on above: Performed By: #### C MP, TSH, BNP, T7 ####[facility] [address] [place] [address]Dr. Hardeep Rivera Creatinine [Mass/Vol] 1.78 mg/dL Critically high 0.55-1.02 [facility] Comment on above: Performed By: #### C MP, TSH, BNP, T7 ####[facility] I[address] [place], [place] [address]Dr. Hardeep Rivera EGFR-AF MARTINIQUAIS 33 mL/min/1.73m2 Critically low >=60 [facility] Comment on above: Performed By: #### C MP, TSH, BNP, T7 ####[facility] K[address]hfl[address] [place], [place] [address]Dr. Hardeep Rivera EGFR-NON AF MARTINIQUAIS 28 mL/min/1.73m2 Critically low >=60 [facility] Comment on above: Performed By: #### C MP, TSH, BNP, T7 ####[facility] [address]bi[address] [place], [place] [address]Dr. Hardeep Rivera Globulin (S) [Mass/Vol] 3.3 g/dL Normal [facility] Comment on above: Performed By: #### C MP, TSH, BNP, T7 ####[facility] [address] [place] [address]Dr. Hardeep Rivera Glucose [Mass/Vol] 127 mg/dL Critically high 74-106 [facility] Comment on above: Performed By: #### C MP, TSH, BNP, T7 ####[facility] [address] [place] [address]Dr. Hardeep Rivera Potassium [Moles/Vol] 3.7 mmol/L Normal 3.5-5.1 [facility] Comment on above: Performed By: #### C MP, TSH, BNP, T7 ####[facility] [address] [place] [address]Dr. Hardeep Rivera Protein [Mass/Vol] 7.2 g/dL Normal 6.4-8.2 [facility] Comment on above: Performed By: #### C MP, TSH, BNP, T7 ####[facility] [address] [place] [address]Dr. Hardeep Rivera Sodium [Moles/Vol] 135 mmol/L Critically low 136-145 Th [facility] Comment on above: Performed By: #### C MP, TSH, BNP, T7 ####[facility] [address] [place] [address]Dr. Hardeep Rivera Urea nitrogen [Mass/Vol] 54.0 mg/dL Critically high 7.0-18.0 [facility] Comment on above: Performed By: #### C MP, TSH, BNP, T7 ####[facility] [address] [place] [address]Dr. Hardeep Rivera Urea nitrogen/Creatinine [Mass ratio] 30.3 mg/mg Normal [facility] Comment on above: Performed By: #### C MP, TSH, BNP, T7 ####[facility] [address] [place] [address]Dr. Hardeep Rivera TSHon 01-09-2023 TSH 1.097 uIU/mL Normal 0.358-3.740 [facility] Comment on above: Performed By: #### C MP, TSH, BNP, T7 ####[facility] [address] [place] [address]Dr. Hardeep Rivera Office Visiton 01-07-2023 Follow-up visit [id number] Sylvia Herrera Erin 1945 F Date Provider Department Center 01/07/2023 ANISHA JACOBS [facility] Family History Family history unknown: Yes Level of Service:42273 ID OFFICE/OUTPATIENT ESTABLISHED MOD MDM 30-39 MIN Normal [facility] ECHOCARDIO M/2D COMPLETEon 0 12-13-2022 ECHOCARDIO M/2D COMPLETE Patient: SYLVIA HERRERA Exam Date: 12/13/2022 : 1945 Gender:F Ordering : [facility] Admission #: [id number] Family : Order #: [id number] CLICK HERE TO VIEW EXAM ECHOCARDIOGRAM REPORT [...] Area (VTI): 2.23 cm2, 2.23 cm2 Deceleration Smith: 1.44 m/s2 Pressure Half-Time: 850.98 ms Peak [...] Nolan M.D. on 12/14/2022 at 13:[address] [facility] US ALAN DOP LEG BILon 023 US [...] HAI FOSTER Date: 2022-12-13 10:51 Normal [facility] BNPon 12-11-2022 Natriuretic peptide B (Bld) [Mass/Vol] 457.0 pg/mL Normal <=1,800.0 [facility] Comment on above: Performed By: #### RANDALL OLSON #### [facility] [address] [place] [address] Dr. Hardeep Rivera CBC AUTO DIFFon 12-11-2022 BASO # 0.0 103/ul Normal 0.0-0.1 [facility] Comment on above: Performed By: #### HARI OLSONRO #### [facility] [address] [place] [address] Dr. Hardeep Rivera Basophils/100 WBC (Bld) 0.4 % Normal 0.2-2.0 [facility] Comment on above: Performed By: #### HARI OLSONRO #### [facility] [address] [place] [address] Dr. Hardeep Rivera EO # 0.2 103/ul Normal 0.0-0.7 [facility] Comment on above: Performed By: #### HARI OLSONRO #### [facility] [address] [place] [address] Dr. Hardeep Rivera Eosinophils/100 WBC (Bld) 2.7 % Normal 0.9-7.0 [facility] Comment on above: Performed By: #### HARI OLSONRO #### [facility] [address] [place] [address] Dr. Hardeep Rivera Erythrocyte distribution width (RBC) [Ratio] 11.9 % Normal 11.0-15.0 [facility] Comment on above: Performed By: #### HARI OLSONRO #### [facility] [address] [place] [address] Dr. Hardeep Rivera Hematocrit (Bld) [Volume fraction] 40.2 % Normal 36.0-48.0 [facility] Comment on above: Performed By: #### Deedee PINON UMICRO #### [facility] [address] [place] [address] Dr. Hardeep Rivera Hemoglobin (Bld) [Mass/Vol] 13.5 g/dL Normal 12.0-16.0 [facility] Comment on above: Performed By: #### Deedee PINON UMICRO #### [facility] [address] [place] [address] Dr. Hardeep Rivera IG # 0.03 10e3/ul Normal 0.00-0.03 [facility] Comment on above: Performed By: #### Deedee PINON UMICRO #### [facility] [address] [place] [address] Dr. Hardeep Rivera IG % 0.4 % Normal 0.0-0.5 [facility] Comment on above: Performed By: #### Deedee PINON UMICRO #### [facility] [address] [place] [address] Dr. Hardeep Rivera LYMPH # 0.9 103/ul Critically low 1.2-3.8 [facility] Comment on above: Performed By: #### Deedee PINON UMICRO #### [facility] [address] [place] [address] Dr. Hardeep Rivera Lymphocytes/100 WBC (Bld) 11.3 % Critically low 20.5-60.0 [facility] Comment on above: Performed By: #### Deedee PINON UMICRO #### [facility] [address] [place] [address] Dr. Hardeep Rivera MANUAL DIFF REQ NO Normal [facility] Comment on above: Performed By: #### Deedee PINON UMICRO #### [facility] [address] [place] [address] Dr. Hardeep Rivera MCH (RBC) [Entitic mass] 28.4 pg Normal 26.7-34.0 [facility] Comment on above: Performed By: #### Deedee PINON UMICRO #### [facility] [address] [place] [address] Dr. Hardeep Rivera MCHC (RBC) [Mass/Vol] 33.6 g/dL Normal 29.9-35.2 [facility] Comment on above: Performed By: #### AKSHAT OLSONICRO #### [facility] [address] [place] [address] Dr. Hardeep Rivera MCV (RBC) [Entitic vol] 84.5 fL Normal 81.0-99.0 [facility] Comment on above: Performed By: #### Deedee PINON UMICRO #### [facility] [address] [place] [address] Dr. Hardeep Rivera MONO # 1.0 103/ul Critically high 0.3-0.8 [facility] Comment on above: Performed By: #### Deedee PINON UMICRO #### [facility] [address] [place] [address] Dr. Hardeep Rivera Monocytes/100 WBC (Bld) 12.5 % Critically high 1.7-12.0 [facility] Comment on above: Performed By: #### Deedee PINON UMICRO #### [facility] [address] [place] [address] Dr. Hardeep Rivera NEUT # 5.9 103/ul Normal 1.4-6.5 [facility] Comment on above: Performed By: #### Deedee PINON UMICRO #### [facility] [address] [place] [address] Dr. Hardeep Rivera Neutrophils/100 WBC (Bld) 72.7 % Normal 43.0-75.0 [facility] Comment on above: Performed By: #### Deedee PINON UMICRO #### [facility] [address] [place] [address] Dr. Hardeep Rivera Platelet mean volume (Bld) [Entitic vol] 8.6 fL Critically low 9.5-13.5 [facility] Comment on above: Performed By: #### Deedee PINON UMICRO #### [facility] [address] [place] [address] Dr. Hardeep Rivera PLT 226 103/ul Normal 150-450 [facility] Comment on above: Performed By: #### HARI OLSONRO #### [facility] [address] [place] [address] Dr. Hardeep Rivera RBC 4.76 106/ul Normal 4.20-5.40 [facility] Comment on above: Performed By: #### HARI OLSONRO #### [facility] [address] [place] [address] Dr. Hardeep Rivera WBC 8.2 103/ul Normal 4.0-11.0 [facility] Comment on above: Performed By: #### Deedee PINON UMICRO #### [facility] [address] [place] [address] Dr. Hardeep Rivera FREE THYROXINE INDEX T7on FTI 3.40 Normal 1.30-4.50 [facility] Comment on above: Performed By: #### HARI OLSONRO #### [facility] [address] [place] [address] Dr. Hardeep Rivera T3U 34.0 % Normal 30.0-39.0 [facility] Comment on above: Performed By: #### HARI OLSONRO #### [facility] [address] [place] [address] Dr. Hardeep Rivera T4 [Mass/Vol] 10.00 ug/dL Normal 4.80-13.90 [facility] Comment on above: Performed By: #### HARI OLSONRO #### [facility] [address] [place] [address] Dr. Hardeep Rivera PROF 14(COMP METB)on 023 Albumin [Mass/Vol] 3.8 g/dL Normal 3.4-5.0 [facility] Comment on above: Performed By: #### HARI OLSONRO #### [facility] [address] [place] [address] Dr. Hardeep Rivera Albumin/Globulin [Mass ratio] 1.1 {ratio} Normal [facility] Comment on above: Performed By: #### HARI OLSONRO #### [facility] [address] [place] [address] Dr. Hardeep Rivera ALP [Catalytic activity/Vol] 192 U/L Critically high 46-116 [facility] Comment on above: Performed By: #### RANDALL OSLON #### [facility] [address] [place] [address] Dr. Hardeep Rivera ALT [Catalytic activity/Vol] 22 U/L Normal 14-59 [facility] Comment on above: Performed By: #### HARI OLSONRO #### [facility] [address] [place] [address] Dr. Hardeep Rivera Anion gap [Moles/Vol] 11.4 mmol/L Normal [facility] Comment on above: Performed By: #### HARI OLSONRO #### [facility] [address] [place] [address] Dr. Hardeep Rivera AST [Catalytic activity/Vol] 22 U/L Normal 15-37 [facility] Comment on above: Performed By: #### HARI OLSONRO #### [facility] [address] [place] [address] Dr. Hardeep Rivera Bilirubin [Mass/Vol] 0.5 mg/dL Normal 0.2-1.0 [facility] Comment on above: Performed By: #### HARI OLSONRO #### [facility] [address] [place] [address] Dr. Hardeep Rivera Calcium [Mass/Vol] 9.1 mg/dL Normal 8.5-10.1 [facility] Comment on above: Performed By: #### HARI OLSONRO #### [facility] [address] [place] [address] Dr. Hardeep Rivera Chloride [Moles/Vol] 93 mmol/L Critically low 98-107 [facility] Comment on above: Performed By: #### HARI OLSONRO #### [facility] [address] [place] [address] Dr. Hardeep Rivera CO2 [Moles/Vol] 30.8 mmol/L Normal 21.0-32.0 [facility] Comment on above: Performed By: #### Deedee PINON UMICRO #### [facility] [address] [place] [address] Dr. Hardeep Rivera Creatinine [Mass/Vol] 1.49 mg/dL Critically high 0.55-1.02 [facility] Comment on above: Performed By: #### E RUR, UMICRO #### [facility] [address] [place] [address] Dr. Hardeep Rivera EGFR-AF MARTINIQUAIS 41 mL/min/1.73m2 Critically low >=60 [facility] Comment on above: Performed By: #### E RUR, UMICRO #### [facility] [address] [place] [address] Dr. Hardeep Rivera EGFR-NON AF MARTINIQUAIS 34 mL/min/1.73m2 Critically low >=60 [facility] Comment on above: Performed By: #### E RUR, UMICRO #### [facility] [address] [place] [address] Dr. Hardeep Rivera Globulin (S) [Mass/Vol] 3.4 g/dL Normal [facility] Comment on above: Performed By: #### E COLLINSR UMICRO #### [facility] [address] [place] [address] Dr. aHrdeep Rivera Glucose [Mass/Vol] 116 mg/dL Critically high 74-106 T [facility] Comment on above: Performed By: #### E RUR, UMICRO #### [facility] [address] [place] [address] Dr. Hardeep Rivera Potassium [Moles/Vol] 4.2 mmol/L Normal 3.5-5.1 [facility] Comment on above: Performed By: #### E RUR, UMICRO #### [facility] [address] [place] [address] Dr. Hardeep Rivera Protein [Mass/Vol] 7.2 g/dL Normal 6.4-8.2 [facility] Comment on above: Performed By: #### E RUR, UMICRO #### [facility] [address] [place] [address] Dr. Hardeep Rivera Sodium [Moles/Vol] 131 mmol/L Critically low 136-145 Th [facility] Comment on above: Performed By: #### HARI OLSONRO #### [facility] [address] [address] [address] Hardeep Rivera Urea nitrogen [Mass/Vol] 38.0 mg/dL Critically high 7.0-18.0 [facility] Comment on above: Performed By: #### Deedee PINON, HARIRO #### [facility] [address] [address] [address] Hardeep Rivera Urea nitrogen/Creatinine [Mass ratio] 25.5 mg/mg Normal [facility] Comment on above: Performed By: #### HARI OLSONRO #### [facility] [address] [place] [address] Dr. Hardeep Rivera TSHon 12-11-2022 TSH 6.407 uIU/mL Critically high 0.358-3.740 [facility] Comment on above: Performed By: #### HARI OLSONRO #### [facility] [address] [place] [address] Dr. Hardeep Rivera 36on 12-07-2022 36 Pt had called pcp they ordered echo and labs will watch for results Normal [facility] Covid-19 PCR ([facility])on 11-01 SARS-CoV-2 (COVID-19) RNA ULICES+probe Ql (Unsp spec) Not detected Normal NOT DETECTED [facility] Comment on above: Result Comment: This test is not yet approved or cleared by the [place] FDA. When there are no FDA-approved or cleared tests available, and other criteria are met, FDA can make tests available under an emergency access mechanism called an Emergency Use Authorization (EUA). The EUA for this test is supported by the [employer] of Health and Human Service's (HHS's) declaration [...] consistent with SARS-CoV-2. Performed By: #### [facility] #### [facility] [address] [place] [address] Dr. Hardeep Rivera INFLUENZA A AND B AGon 11-14 [facility] SEE BELOW Normal [facility] Comment on above: Result Comment: Nega tive for Flu A protein angiten. Infection due to Flu A cannot be ruled out. Flu A angiten in the sample may be below the detection limit of the test. Performed By: #### Deedee PINON ICRO #### [facility] [address] [place] [address] Dr. Hard[facility]OW Normal [facility] Comment on above: Result Comment: Nega tive for Flu B protein antigen. Infection due to Flu B cannot be ruled out. Flu B antigen in the sample may be below the detection limit of the test. Performed By: #### Deedee PINON UMICRO #### [facility] [address] [place] [address] Dr. Hardeep Rivera INFLUENZA A AG Negative Normal NEGATIVE SEE COMMENT [facility] Comment on above: Performed By: #### Deedee PINON UMICRO #### [facility] [address] [place] [address] Dr. Hardeep Rivera INFLUENZA B AG Negative Normal NEGATIVE SEE COMMENT [facility] Comment on above: Performed By: #### Deedee PINON UMICRO #### [facility] [address] [place] [address] Dr. Hardeep Rivera INTERNAL CONTROLS Within Normal Limits Normal Wi thin Normal Limits [facility] Comment on above: Performed By: #### Deedee PINON, UMICRO #### [facility] [address] [place] [address] Dr. Hardeep Rivera Covid-19 PCR ([facility])on SARS-CoV-2 (COVID-19) RNA ULICES+probe Ql (Unsp spec) Not detected Normal NOT DETECTED [facility] Comment on above: Result Comment: This test is not yet approved or cleared by the [place] FDA. When there are no FDA-approved or cleared tests available, and other criteria are met, FDA can make tests available under an emergency access mechanism called an Emergency Use Authorization (EUA). The EUA for this test is supported by the P[employer] of Health and Human Service's (HHS's) declaration [...] SARS-CoV-2. Performed By: #### C VDTB #### [facility] [address] [place] [address] Dr. Hardeep Rivera INFLUENZA A AND B AGon 10-03 [facility] Normal [facility] Comment on above: Result Comment: Nega tive for Flu A protein angiten. Infection due to Flu A cannot be ruled out. Flu A angiten in the sample may be below the detection limit of the test. Performed By: #### HARI OLSONRO #### [facility] [address] [place] [address] Dr. Hardeep [facility]OW Normal [facility] Comment on above: Result Comment: Nega tive for Flu B protein antigen. Infection due to Flu B cannot be ruled out. Flu B antigen in the sample may be below the detection limit of the test. Performed By: #### HARI OLSONRO #### [facility] [address] [place] [address] Dr. Hardeep Rivera INFLUENZA A AG Negative Normal NEGATIVE SEE COMMENT [facility] Comment on above: Performed By: #### AKSHAT OLSONICRO #### [facility] [address] [address] [address] Hardeep Rivera INFLUENZA B AG Negative Normal NEGATIVE SEE COMMENT [facility] Comment on above: Performed By: #### RANDALL OLSON #### [facility] [address] [address] [address] Hardeep Rivera INTERNAL CONTROLS Within Normal Limits Normal Wi thin Normal Limits [facility] Comment on above: Performed By: #### RANDALL OLSON #### [facility] [address] [address] [address] Hardeep Clark 08-16-2022 CNPN Telephone ([facility]) SYLVIA HERRERA ([id number]) 1945 F Date Time Provider Department 08/16/22 SOY MCCANN [facility] During your visit today, we recorded [...] mg by mouth three times daily. - owzfon-lgigsdbv-tqcsq se (CREON) 24,000-76,000 -120,000 unit cpDR Take [...] Status:Closed by SOY MCCANN on 08/16/22 Normal [facility] AMYLASEon 08-04-2022 Amylase [Catalytic activity/Vol] 155 U/L Critically high 25-115 [facility] Comment on above: Performed By: #### C MPABAD, BRITTNEY ####[facility] [address] [address]DrLaura Rivera CBC AUTO DIFFon 08-04-2022 BASO # 0.0 103/ul Normal 0.0-0.1 [facility] Comment on above: Performed By: #### C BC ####[facility] [address] [place], [place] [address]DrLaura Rivera Basophils/100 WBC (Bld) 0.3 % Normal 0.2-2.0 [facility] Comment on above: Performed By: #### C BC ####[facility] [address] [place], [place] [address]DrLaura Rivera EO # 0.1 103/ul Normal 0.0-0.7 [facility] Comment on above: Performed By: #### C BC ####[facility] [address] [place], [place] [address]DrLaura Rivera Eosinophils/100 WBC (Bld) 1.2 % Normal 0.9-7.0 [facility] Comment on above: Performed By: #### C BC ####[facility] [address] [place], [place] [address]DrLaura Rivera Erythrocyte distribution width (RBC) [Ratio] 12.2 % Normal 11.0-15.0 [facility] Comment on above: Performed By: #### C BC ####[facility] [address] [place], [place] [address]DrLaura Rivera Hematocrit (Bld) [Volume fraction] 38.3 % Normal 36.0-48.0 [facility] Comment on above: Performed By: #### C BC ####[facility] [address] [place], [place] [address]Dr. Hardeep Rivera Hemoglobin (Bld) [Mass/Vol] 12.9 g/dL Normal 12.0-16.0 [facility] Comment on above: Performed By: #### C BC ####[facility] [address] [address]Dr. Hardeep Rivera IG # 0.02 10e3/ul Normal 0.00-0.03 [facility] Comment on above: Performed By: #### C BC ####[facility] [address] [address]Dr. Hardeep Rivera IG % 0.3 % Normal 0.0-0.5 [facility] Comment on above: Performed By: #### C BC ####[facility] [address] [place], [place] [address]Dr. Hardeep Rivera LYMPH # 1.1 103/ul Critically low 1.2-3.8 The [facility] Comment on above: Performed By: #### C BC ####[facility] [address] [place], [place] [address]Dr. Hardeep Rivera Lymphocytes/100 WBC (Bld) 16.6 % Critically low 20.5-60.0 [facility] Comment on above: Performed By: #### C BC ####[facility] [address] [place], [place] [address]Dr. Hardeep Rivera MANUAL DIFF REQ NO Normal [facility] Comment on above: Performed By: #### C BC ####[facility] [address] [place], [place] [address]Dr. Hardeep Rivera MCH (RBC) [Entitic mass] 29.7 pg Normal 26.7-34.0 [facility] Comment on above: Performed By: #### C BC ####[facility] [address] [place], [place] [address]Dr. Hardeep Rivera MCHC (RBC) [Mass/Vol] 33.7 g/dL Normal 29.9-35.2 [facility] Comment on above: Performed By: #### C BC ####[facility] [address] [place], [place] [address]Dr. Hardeep Rivera MCV (RBC) [Entitic vol] 88.2 fL Normal 81.0-99.0 [facility] Comment on above: Performed By: #### C BC ####[facility] [address] [address]Dr. Hardeep Rivera MONO # 0.7 103/ul Normal 0.3-0.8 [facility] Comment on above: Performed By: #### C BC ####[facility] [address] [place], [place] [address]Dr. Hardeep Rivera Monocytes/100 WBC (Bld) 11.1 % Normal 1.7-12.0 [facility] Comment on above: Performed By: #### C BC ####[facility] [address] [place], [place] [address]Dr. Hardeep Rivera NEUT # 4.6 103/ul Normal 1.4-6.5 [facility] Comment on above: Performed By: #### C BC ####[facility] [address] [place], [place] [address]Dr. Hardeep Rivera Neutrophils/100 WBC (Bld) 70.5 % Normal 43.0-75.0 [facility] Comment on above: Performed By: #### C BC ####[facility] [address] [place], [place] [address]Dr. Hardeep Rivera Platelet mean volume (Bld) [Entitic vol] 9.4 fL Critically low 9.5-13.5 [facility] Comment on above: Performed By: #### C BC ####[facility] [address] [place], [place] [address]Dr. Hardeep Miguel PLT 203 103/ul Normal 150-450 [facility] Comment on above: Performed By: #### C BC ####[facility] [address] [place], [place] [address]Dr. Hardeep Miguel RBC 4.34 106/ul Normal 4.20-5.40 [facility] Comment on above: Performed By: #### C BC ####[facility] [address] [place], [place] [address]Dr. Hardeep Rivera WBC 6.5 103/ul Normal 4.0-11.0 [facility] Comment on above: Performed By: #### C ####[facility] [address] [place], [place] [address]Qs. Hardeep Rivera CT ABD/PELVIS WO CONon 08-04 [...] ALEXSANDER HARDING Date: 2022-08-04 20:12 Normal [facility] SARS-CoV-2 (COVID-19) RNA ULICES+probe Ql (Unsp spec) Not detected Normal NOT DETECTED [facility] Comment on above: Result Comment: When diagnostic [...] for this test is supported by the [employer] of Health and Human Service's declaration that [...] be used). Performed By: #### C VDTBH ####[facility] [address] [place], [place] [address]PrDr. Hardeep CASILLAS URINE PROFILEon 2 Bilirubin Ql (U) Negative Normal NEGATIVE [facility] Comment on above: Performed By: #### E RUR #### [facility] [address] [place], [place] [address] Dr. Yilan Rivera Clarity (U) CLEAR Normal CLEAR [facility] Comment on above: Performed By: #### E RUR #### [facility] [address] [place] [address] Dr. Hardeep Rivera Color (U) LT. YELLOW Normal YELLOW [facility] Comment on above: Performed By: #### E RUR #### [facility] [address] [place] [address] Dr. Hardeep FRANCIS A micrscopic examination will be performed if indicated. Normal [facility] Comment on above: Performed By: #### E RUR #### [facility] [address] [place] [address] Dr. Hardeep Rivera Glucose Ql (U) Negative Normal NEGATIVE [facility] Comment on above: Performed By: #### E RUR #### [facility] [address] [place] [address] Dr. Hardeep Rivera Hemoglobin Ql (U) Negative Normal NEGATIVE [facility] Comment on above: Performed By: #### E RUR #### [facility] [address] [place] [address] Dr. Hardeep Rivera Ketones Ql (U) Negative Normal NEGATIVE [facility] Comment on above: Performed By: #### E RUR #### [facility] [address] [place] [address] Dr. Hardeep Rivera LEUKOCYTES Negative Normal NEGATIVE [facility] Comment on above: Performed By: #### E RUR #### [facility] [address] [place] [address] Dr. Hardeep Rivera Nitrite Ql (U) Negative Normal NEGATIVE [facility] Comment on above: Performed By: #### E RUR #### [facility] [address] [place] [address] Dr. Hardeep Rivera pH (U) 7.0 [pH] Normal 5-9 [facility] Comment on above: Performed By: #### E RUR #### [facility] [address] [place] [address] Dr. Hardeep Rivera SPEC GRAVITY <=1.005 Abnormal 1.005-<=1.[address] [facility] Comment on above: Performed By: #### E RUR #### [facility] [address] [address] [address] Hardeep Rivera UA PROTEIN Negative Normal NEGATIVE/ TRACE [facility] Comment on above: Performed By: #### E RUR #### [facility] [address] [address] [address] Hardeep Rivera UR MICRO IND NOT INDICATED Normal [facility] Comment on above: Performed By: #### E RUR #### [facility] [address] [address] [address] Hardeep Rivera Urobilinogen Qn (U) 0.2 {Kevon'U}/dL Normal 0.2 - 1. 0 [facility] Comment on above: Performed By: #### E RUR #### [facility] [address] [place] [address] Dr. Hardeep Rivera LIPASEon 08-04-2022 Lipase [Catalytic activity/Vol] 1486.0 U/L Critically high 73.0-393.0 [facility] Comment on above: Performed By: #### C ABAD MORE, BRITTNEY ####[facility] [address] [place], [place] [address]DrLaura Rivera PROF 14(COMP METB)on 022 Albumin [Mass/Vol] 3.6 g/dL Normal 3.4-5.0 [facility] Comment on above: Performed By: #### C ARGENIS LIPJhony, BRITTNEY ####[facility] [address] [address]DrLaura Rivera Albumin/Globulin [Mass ratio] 1.3 {ratio} Normal [facility] Comment on above: Performed By: #### C DERRELL MOREA, BRITTNEY ####[facility] [address] [address]DrLaura Rivera ALP [Catalytic activity/Vol] 171 U/L Critically high 46-116 [facility] Comment on above: Performed By: #### C ARGENIS LIPA, BRITTNEY ####[facility] [address] [address]Dr. Hardeep Rivera ALT [Catalytic activity/Vol] 35 U/L Normal 14-59 [facility] Comment on above: Performed By: #### C ABAD MORE, BRITTNEY ####[facility] [address] [place], [place] [address]Dr. Hardeep Rivera Anion gap [Moles/Vol] 11.4 mmol/L Normal [facility] Comment on above: Performed By: #### C ARGENIS LIPA, BRITTNEY ####[facility] [address] [place], [place] [address]Dr. Hardeep Rivera AST [Catalytic activity/Vol] 28 U/L Normal 15-37 [facility] Comment on above: Performed By: #### C ARGENIS LIPA, BRITTNEY ####[facility] [address] [place], [place] [address]Dr. Hardeep Rivera Bilirubin [Mass/Vol] 0.7 mg/dL Normal 0.2-1.0 [facility] Comment on above: Performed By: #### C ARGENIS LIPA, BRITTNEY ####[facility] [address] [place], [place] [address]Dr. Hardeep Rivera Calcium [Mass/Vol] 8.4 mg/dL Critically low 8.5-10.1 [facility] Comment on above: Performed By: #### C ARGENIS LIPA, BRITTNEY ####[facility] [address] [place], [place] [address]Dr. Hardeep Rivera Chloride [Moles/Vol] 100 mmol/L Normal 98-107 [facility] Comment on above: Performed By: #### C ARGENIS LIPA, BRITTNEY ####[facility] [address] [place], [place] [address]Dr. Hardeep Rivera CO2 [Moles/Vol] 25.6 mmol/L Normal 21.0-32.0 [facility] Comment on above: Performed By: #### C MP, LIPA, BRITTNEY ####[facility] [address] [place], [place] [address]Dr. Hardeep Rivera Creatinine [Mass/Vol] 1.33 mg/dL Critically high 0.55-1.02 The [facility] Comment on above: Performed By: #### C ARGENIS LIPA, BRITTNEY ####[facility] [address] [address]Dr. Hardeep Rivera EGFR-AF MARTINIQUAIS 47 mL/min/1.73m2 Critically low >=60 [facility] Comment on above: Performed By: #### C ARGENIS LIPA, BRITTNEY ####[facility] [address] [address]Dr. Hardeep Rivera EGFR-NON AF MARTINIQUAIS 39 mL/min/1.73m2 Critically low >=60 [facility] Comment on above: Performed By: #### C ARGENIS LIPA, BRITTNEY ####[facility] [address] [place], [place] [address]Dr. Hardeep Rivera Globulin (S) [Mass/Vol] 2.7 g/dL Normal [facility] Comment on above: Performed By: #### C ARGENIS LIPA, BRITTNEY ####[facility] [address] [place], [place] [address]Dr. Hardeep Rivera Glucose [Mass/Vol] 108 mg/dL Critically high 74-106 [facility] Comment on above: Performed By: #### C DERRELL MOREA, BRITTNEY ####[facility] [address] [place], [place] [address]Dr. Hardeep Rivera Potassium [Moles/Vol] 4.0 mmol/L Normal 3.5-5.1 [facility] Comment on above: Performed By: #### C ARGENIS LIPA, BRITTNEY ####[facility] [address] [place], [place] [address]Dr. Hardeep Rivera Protein [Mass/Vol] 6.3 g/dL Critically low 6.4-8.2 Th [facility] Comment on above: Performed By: #### C ARGENIS LIPA, BRITTNEY ####[facility] [address] [place], [place] [address]Dr. Hardeep Rivera Sodium [Moles/Vol] 133 mmol/L Critically low 136-145 Th [facility] Comment on above: Performed By: #### C ARGENIS LIPA, BRITTNEY ####[facility] [address] [address]Dr. Hardeep Rivera Urea nitrogen [Mass/Vol] 23.0 mg/dL Critically high 7.0-18.0 [facility] Comment on above: Performed By: #### C ABAD MORE AMY ####[facility] [address] [place], [place] [address]UqLaura Rivera Urea nitrogen/Creatinine [Mass ratio] 17.3 mg/mg Normal [facility] Comment on above: Performed By: #### C ABAD MORE AMY ####[facility] [address] [address]Dr. Hardeep Rivera Pre-Certification Formon Pre-Certification Form [id number] #1.00CD:127 Normal [facility] BOX TEST SENT OUTon 08-02-20 22 SENT TO REF LAB 08/02/2022 Normal [facility] Comment on above: Performed By: #### Deedee RUR #### [facility] [address] [place] [address] Dr. Hardeep Rivera CBC AUTO DIFFon 08-02-2022 BASO # 0.0 103/ul Normal 0.0-0.1 [facility] Comment on above: Performed By: #### HARI OLSONRO #### [facility] [address] [address] [address] Hardeep Rivera Basophils/100 WBC (Bld) 0.3 % Normal 0.2-2.0 [facility] Comment on above: Performed By: #### HARI OLSONRO #### [facility] [address] [address] [address] Hardeep Rivera EO # 0.1 103/ul Normal 0.0-0.7 [facility] Comment on above: Performed By: #### HARI OLSONRO #### [facility] [address] [place] [address] Dr. Hardeep Rivera Eosinophils/100 WBC (Bld) 1.4 % Normal 0.9-7.0 [facility] Comment on above: Performed By: #### RANDALL OLSON #### [facility] [address] [place] [address] Dr. Hardeep Rivera Erythrocyte distribution width (RBC) [Ratio] 12.2 % Normal 11.0-15.0 [facility] Comment on above: Performed By: #### RANDALL OLSON #### [facility] [address] [place] [address] Dr. Hardeep Rivera Hematocrit (Bld) [Volume fraction] 41.2 % Normal 36.0-48.0 [facility] Comment on above: Performed By: #### RANDALL OLSON #### [facility] [address] [place] [address] Dr. Hardeep Rivera Hemoglobin (Bld) [Mass/Vol] 13.6 g/dL Normal 12.0-16.0 [facility] Comment on above: Performed By: #### RANDALL OLSON #### [facility] [address] [place] [address] Dr. Hardeep Rivera IG # 0.02 10e3/ul Normal 0.00-0.03 [facility] Comment on above: Performed By: #### RANDALL OLSON #### [facility] [address] [place] [address] Dr. Hardeep Rivera IG % 0.3 % Normal 0.0-0.5 [facility] Comment on above: Performed By: #### RANDALL OLSON #### [facility] [address] [place] [address] Dr. Hardeep Rivera LYMPH # 0.6 103/ul Critically low 1.2-3.8 [facility] Comment on above: Performed By: #### RANDALL OLSON #### [facility] [address] [place] [address] Dr. Hardeep Rivera Lymphocytes/100 WBC (Bld) 8.9 % Critically low 20.5-60.0 [facility] Comment on above: Performed By: #### RANDALL OLSON #### [facility] [address] [place] [address] Dr. Hardeep Rivera MANUAL DIFF REQ NO Normal [facility] Comment on above: Performed By: #### E RUR, UMICRO #### [facility] [address] [place] [address] Dr. Hardeep Rivera MCH (RBC) [Entitic mass] 29.6 pg Normal 26.7-34.0 [facility] Comment on above: Performed By: #### E RUTrish, UMICRO #### [facility] [address] [place] [address] Dr. Hardeep Rivera MCHC (RBC) [Mass/Vol] 33.0 g/dL Normal 29.9-35.2 [facility] Comment on above: Performed By: #### E KATHRIN, UMICRO #### [facility] [address] [place] [address] Dr. Hardeep Rivera MCV (RBC) [Entitic vol] 89.8 fL Normal 81.0-99.0 [facility] Comment on above: Performed By: #### Deedee PINON, UMICRO #### [facility] [address] [place] [address] Dr. Hardeep Rivera MONO # 0.7 103/ul Normal 0.3-0.8 [facility] Comment on above: Performed By: #### Deedee PINON, UMICRO #### [facility] [address] [place] [address] Dr. Hardeep Rivera Monocytes/100 WBC (Bld) 11.6 % Normal 1.7-12.0 [facility] Comment on above: Performed By: #### Deedee PINON, UMICRO #### [facility] [address] [place] [address] Dr. Hardeep Rivera NEUT # 5.0 103/ul Normal 1.4-6.5 [facility] Comment on above: Performed By: #### E RUR, UMICRO #### [facility] [address] [place] [address] Dr. Hardeep Rivera Neutrophils/100 WBC (Bld) 77.5 % Critically high 43.0-75.0 [facility] Comment on above: Performed By: #### E KATHRIN, UMICRO #### [facility] [address] [address] [address] Hardeep Rivera Platelet mean volume (Bld) [Entitic vol] 9.4 fL Critically low 9.5-13.5 [facility] Comment on above: Performed By: #### Deedee PINON, UMICRO #### [facility] [address] [address] [address] Hardeep Rivera PLT 200 103/ul Normal 150-450 [facility] Comment on above: Performed By: #### Deedee PINON, UMICRO #### [facility] [address] [place] [address] Dr. Hardeep Rivera RBC 4.59 106/ul Normal 4.20-5.40 [facility] Comment on above: Performed By: #### Deedee PINON, UMICRO #### [facility] [address] [place] [address] Dr. Hardeep Rivera WBC 6.4 103/ul Normal 4.0-11.0 [facility] Comment on above: Performed By: #### Deedee PINON, UMICRO #### [facility] [address] [place] [address] Dr. Hardeep Clark 08-02-2022 CNPN Telephone ([facility]) SYLVIA HERRERA ([id number]) 1945 F Date Time Provider Department 08/02/22 [facility] During your visit today, we recorded [...] will be transferring her care. Loida Mathias APRN.[employer] August 07, 2022 10:27 AM Allergies As [...] mg by mouth three times daily. - vhppvt-nbmbxxel-uszdn se (CREON) 24,000-76,000 -120,000 unit cpDR Take [...] 09/02/2019 Encounter Status:Closed by LINDEN WEEMS on 08/02/22 Normal [facility] PROF CHEM 8 (BAS METB)on Anion gap [Moles/Vol] 12.2 mmol/L Normal [facility] Comment on above: Performed By: #### RANDALL OLSON #### [facility] [address] [address] [address] Hardeep Rivera Calcium [Mass/Vol] 8.6 mg/dL Normal 8.5-10.1 [facility] Comment on above: Performed By: #### RANDALL OLSON #### [facility] [address] [id number] Hardeep Rivera Chloride [Moles/Vol] 98 mmol/L Normal 98-107 [facility] Comment on above: Performed By: #### RANDALL OLSON #### [facility] [address] [place] [address] Dr. Hardeep Rivera CO2 [Moles/Vol] 27.7 mmol/L Normal 21.0-32.0 [facility] [place] Comment on above: Performed By: #### HARI OLSONRO #### [facility] [address] [place] [address] Dr. Hardeep Rivera Creatinine [Mass/Vol] 1.42 mg/dL Critically high 0.55-1.02 [facility] Comment on above: Performed By: #### HARI OLSONRO #### [facility] [address] [place] [address] Dr. Hardeep Rivera EGFR-AF MARTINIQUAIS 43 mL/min/1.73m2 Critically low >=60 [facility] Comment on above: Performed By: #### HARI OLSONRO #### [facility] [address] [place] [address] Dr. Hardeep Rivera EGFR-NON AF MARTINIQUAIS 36 mL/min/1.73m2 Critically low >=60 [facility] Comment on above: Performed By: #### RADNALL OLSON #### [facility] [address] [place] [address] Dr. Hardeep Rivera Glucose [Mass/Vol] 119 mg/dL Critically high 74-106 [facility] Comment on above: Performed By: #### HARI OLSONRO #### [facility] [address] [place] [address] Dr. Hardeep Rivera Potassium [Moles/Vol] 3.9 mmol/L Normal 3.5-5.1 [facility] Comment on above: Performed By: #### HARI OLSONRO #### [facility] [address] [place] [address] Dr. Hardeep Rivera Sodium [Moles/Vol] 134 mmol/L Critically low 136-145 [facility] Comment on above: Performed By: #### HARI OLSONRO #### [facility] [address] [place], [place] [address] Dr. Hardeep Rivera Urea nitrogen [Mass/Vol] 21.0 mg/dL Critically high 7.0-18.0 [facility] Comment on above: Performed By: #### RANDALL OLSON #### [facility] [address] [place], [place] [address] Dr. Hardeep Rivera Urea nitrogen/Creatinine [Mass ratio] 14.8 mg/mg Normal [facility] Comment on above: Performed By: #### E RANDALL PINON #### [facility] [address] [place], [place] [address] Dr. Hardeep Rivera [facility] Tacrolimus (Bld) [Mass/Vol] 4.7 ng/mL Low 5.0-20.0 [facility] Comment on above: Order Comment: Speci [...] Test performed by chemiluminescent immunoassay using [employer]. Performed By: #### 1 1253-2 ####[facility] [id number] [place] [address] [place] Giardia, Direct, EIAon 07-23 G. lamblia Ag IA Ql (Stl) Negative Invalid Interpretation Code Negative [facility] Comment on above: Result Comment: Perf ormed at: [facility] [address] [id number] PhD Sommer Davis Performed By: #### 4 [id number] ####[facility] [address] [place] [address] O & P EXAM, ROUTINE, REFLEXo n 07-23-2022 Ova and parasites identified Concentration Nom (Stl) Comment Invalid Interpretation Code [facility] Comment on above: Result Comment: No o va, cysts, or parasites seen. One negative specimen does not rule out the possibility of a parasitic infection. Performed at: [address] [id number] PhD Sommer Davis Performed By: #### 4 [id number] ####[address] [place] [address] O & P Exam, Routineon 2021 Ova and parasites identified LM Nom (Unsp spec) Final report Invalid Interpretation Code [facility] Comment on above: Result Comment: Thes e results were obtained using wet preparation(s) and trichrome stained smear. This test does not include testing for Cryptosporidium parvum, Cyclospora, or Microsporidia. Performed at: [address] [id number] PhD Sommer Davis Performed By: #### 4 [id number] ####[address] [place] [address] Consent for Procedure/Surger yon 07-19-2022 Consent for Procedure/Surgery [id number] Normal [facility] CMV IgMon 07-18-2022 CMV IgM IA Qn <30.0 Invalid Interpretation Code 0.0-29.9 [facility] Comment on above: Result Comment: Nega tive <30.0 Equivocal 30.0 - 34.9 Positive >34.9 A positive result is generally indicative of acute infection, reactivation or persistent IgM production. Performed at: [address] [id number] PhD Sommer Davis Performed By: #### 1 [id number] ####[facility] [address] [place] [address] Coding Summary.on 07-18-2022 Coding Summary. CD:[id number] G h0bWw+PGhlYWQ+ZW0SKPI kO95glGNbeJ2SN8eXIA4A FQPMGQHPPI9RJN4yzTN6P IigB0CesdLw OocexEXiDV29EFj1HPQ7a UewUGngqB6wqOXtV2s2Ex ZbPT73aY44QAteIUSsNyV 3LjZpbjsgbWFy D3xoRiSkfSUpJlq+PHRhY mxlIHdpZHRoPScxMDAlJy DwjWbdVC7zOz6sOLKcZBR vbGxhcHNlOiBj n8idARWvZLwdKV7wsMbrS 5SnmDC9PGJns6u6Un04sW I+BBFjBJH5fDjqMHkrd03 4TnFsc8hySWT7 lLQnQEpjKPJ8R16nu3G2A ZEeHHKvSOP2gWU7yV8wgE ksuhxlB6NwgOAaXjL2PQV 0lVIvwN3wxWxe wwcdwB0oTql+R07EXT8VO PZSOV3EXku1L3JoPwaqcZ I+SN83EKGlHP67oAXnyUZ sp4edgPh7DrIl MUNrVMK0eZjnBPktf2SmZ ZEdH74psVKfu4C9DDUsoE hljLOpPrZilDL6iS8cQCl lglsiw1styahy Rbpzy0ttvr77iA11S12mP TicULUkVWQ4TSAsGPTihX egmr8arV4jZr2+QIwhx4d iv7mpfGp5KgXv LTYynxTvhCefBJD6o4KgW e68R4HyyEinj1HxVvq2uy 01dCYmz5N9mHG9ZGlrYIC ruZ6iWAvlRpW3 ZQXvSsYaqX25vUDzQZjrQ y5wkXqazYiaEA0uHKBvfp loDFKtmY7hNIAewJByoLf lYT3fOVNfqvwg b472KrCrFBL7EMYxgQRfN 3ZncV1yCkEdEBOpUYRzX7 XyfGDmIWpgV253VXxmFjG 4XLQojgItG6Th IRLvpBlvQkD7o3Z6Ut0Lz 2RhtmiiGLR0IVqiHTJ8Ul Z3VmGcSxN4B1MqBkw7APG atVojVP9xI8Qy AUIjpwuwmfwnlZA6BWXnU VDseB51sHNlFJmmEv6rr4 N7z486GYTaCZTyzV68Mo9 udDogMTBwdCBU uE7cdveek2qvdyyiCuLqL VCsAIv3WLt7BXJgrRrfAd YkILW6YeI2PHQ6yXOaoJ7 vnAcbcfioaU5y Oyc+P16bjB3xTFK4EQW3u ylqKSQeguScQN43MT46F6 RyPjwvdGFibGU+PGRpdiB ysFykQS6eUuBf s4irm8WsQTiqL6QdHTBiO ZpuQfo3WSAbERX5hBF5wV 9sRDBmJYaic9R4gBL7B8J bjpTprn4jh6me ZAQpJInsW20xxOBsw0H9Q OZwbZU2JODqzIlpZsWixZ 93Oyc+IHBfmFcab4LkRfc kc3zly3ywdOd9 FeWcMNEfepHzgDktDDU5i 2AiYj84B91rRTklPHLzCO CyLCKgGIEtzZwswf6lgU3 wIi8+PGNvbCB3 aQS0wZ9eNAOfQoI7VUrjS 117WdRzlVIqXfhuc0zjp2 madMc8BzGyHQYzueJdsVt kPYB4w3WoVc59 A24yWFfrEZEqHIKoBSMyU HZdwUkrhv1iuU7hAt3+PC 3kk1myad78gQ47wQW+PHR gGSV9zCmqRLsp QAKcpO7cQRruKkA6SIBaW bRgfE39eJKhEOigBu5rwR nzoRsqMH5mYKCmxophe96 9FaOiw4reIUFg lECdOIziEGX8G59qc6T2D HXgPWUgRUD3iDU9yE7vvS lnbjogbGVmdDsgdmVydGl sXQpgVKpbY011 IHRvcDsnPlBhdGllbnQgT vBmZBt3P4HwUfh2ACNfbN ppXN3lnGTxEDgpBf7wrDl jcZzgSN7tYYHa ycbls872YzLbd8mjVFAnr NBsDFiyHAL5V52vk8M8PE SnBBBfIEN8zCC6lN4oqUj nbjogbGVmdDsg dtUgyMdhKYayMCggN268C HRvcDsnPkJpcnRoIERhdG L7QJ80ND47zUQvn1N4kQG 3H0JcPTLbmzuf vtnymSO6KYJzSBFasF88B h5wbZtrVy3gVYXjAXR1EK TkjOSsG2NgqR5mMfCxIRN sNFVmZ3IuzUYu EPsyD115ACciRfT6QJCiv gChR8VgEJRobFpsSoL0y9 W0Zu5WT7Y9YF87DC69lRA hx3C8cSB1Z1Tu REAcuyzkawsuhJE5EJThS GMecV54Gb5gwLawIq2bXS PfZXJ5YWKfnQOgI6TznX0 yOiAjMDAwMDAw Q3CscODtDImmY372TQrxH jM9NPDqalCdE4DtHODeuH khXtX5r7Q6Ii3GOKl8XX2 0GT92wANys9E7 gVZ0Q3DgOSQbqpetpnswi MG7MOKeZRZafE55Ak2nhK fsDv3uWLHwCQN6YMNjwAA nN1CqhY3cSiAm TUGtFUHuR3GldDYnDIzbY 380IGvaNuL5QATckfVxW4 TwFRPjbXeuAqP1c6U2Pm2 NSSRvIU45TWS8 lYY2TX66YM17S6ZpJmtij GFibGU+PHRhYmxlIHdpZH RoPScxMDAlJyBzdHlsZT0 aXw8gCGQvOBMv jFccwTFnKqRrh8oqKXZsS UffCE0hpGxuC8OztNA9UL Gvy9l0Oo23F36pP7BwhHT +EAWmnYH0sVT8 iI1iZfMmSkS9KMylM406Y eQkhVRfMxyhw2akf4rddG d2QfT0BJZxdsNbiSwtXUA 0n4ZcXy83P32l IHdpZHRoPSIxNSUiIHZhb Vmxxb7xdQ8xAv2+PGNvbC Z1jQI6qV1pMwBkOzW3MXb eG867MkMkjDHb Geoez9iqi1zzrZq8SiKeG GUfarXicGmqFDE1q9PhQq 91G5MtwTnlx1GaMqn5im4 5jHTpl4W0tAJ4 D3TrYRHqbgrmgPBazUuwP F2sYVTwnlijDGNayK9bYU OgA6v1AmDwBjO8IGpoK9H wnwH8IEEwtFZe OFmkRSL9G83nk4D7ELCgW MGfSMI7gJB9kW2xnHlkwx ogbGVmdDsgdmVydGljYWw cXPlkJ883KUGt iJypJTMlgS5nFSOniDCtr DfrSF1uYSDljjcaKwLHEr XFBZVNBNjLUDWLXE30XZ1 4qBFxn3O0nAK4 W3KwVAAgvrzuunstvCM9Q YNyKKYmpA17lTHrORijIq 2mt6E3i113TPHcIOAaxY8 9Sf1lfLylLWPn rCDTyH8qiwttb1smtxemK jKrMJNsRNn5AWk8COWhhW chWmQcDOM4CoP7VIO4eBS lvO5jlEqvgsla fU7vJea+ZRRkPzAsWLe2A TwvdGQ+SUOpFQT0sYnzOV epXWNawC0vNRMzO6z5OqZ wKzK9NEtpC7Cx ZHWftuvjTd71vB4lGaRiN qJ6WXeuA3JeezA6AGHnxE DaIChuPFH2C14gu1B7KDB uWVXuUXA5cEM6 xO2snYacoutjaMPpuPeyw sMcpNfbCFjzVUjcJ162KF WeqSkfLyy0MOhmRRJqWC0 1IK48eSEop4E9 iXP0L2NdAWGimkqfkdouh AK0GEZvTGHduY94qRPtDF isYb5vu9A5v074NTHzMAX foX31Lx4ajUjf BGFghWROyP0wyeuvu4sbc jwxVgHdOJLgVFx4IPb5OE SflZkeMnYvKZX7GpP8KRZ 5rIVnwS4xqNcf tobqfI2eDbz+RmVtYWxlP W25LU14iFWhg4G2rPQ4Q9 MuZVKmvezmybpxhSJ1FTK aDPMmrR89wYDb GXsgTs9jk9Z4n209QXCzO SIelQ75Ju2jvTiuDKSntW TVhI5kchupg3ruxqbbMhZ pDMTvJRc3UNv4 CXBfcPccIuEdFNW2JcO9M GM6aMQnkC8ciHfbgqjgwU 9wOyc+Y1L7zFD4lIWriMv vdGQ+ZB44vm99 S2GhTxozFeg6PSNhUIO5e IE5mZ1bOKGhIGhso3P2wC C7T9SnbfAbqm2fk0nsXGJ hTObcD03quIIa y2P6LPAajZC4GREbdFrkG dSqgW96Qtw+PGNvbGdyb3 YaZfflq9hfr1pnaGq4KwH wJSIgdmFsaWdu HOH6p8BnRw28H93lUNcrB HRoPSIzMCUiIHZhbGlnbj 1ejG3yRe4+HQEfnWJ2jSV 3vH9oVmDwEzF6 QQtbE846YoXzpWJjKjpnq 6ysg4frnWe6DnNeOBEhjh DbqMbzAEL1b4BlTb79N3I qnEjbv0VgSqr5 xc58yBAvu5D0tAP1B1XjE FZyfaoqlORfmXzvJW9nAM DljewiRKVnrP1wZKRuS4m 4DvEaVdA5ZNom A6SrmcC1YNMalPIgMVLmp SOWgB8vkfdsa9fesqgyPy VvPAPtDSm7LOx6UMYpzHd wCpMhBPH3NxV5 VSX0oLDjkO7reAuticurb G9wOyc+PVo1n3dzkWAfNU 2cgAN8HS98EE83zFWax1N 1hMY8P5ZdFNOv ftossdkwpME5XIYqNCHtl G53Ev1npDxgIl1tTSKqKN K0SBDcdRNzM0WlmY3pFiH aKDJyGBEfP0Fh aDKuVGerZ725BNqwOhK8D LAisnQlP9MpEOCcbGknBk S9o4X1Oe4QTI79ZS95PM3 9wRWkf1F5qVT5 J8NmCTVflozdwepzpZD8G HKdOCKclQ55Sf1tgPahEp 0yHBWdWHF6RNJgeIRuU6J ptS9zYxOeRAGw KGJjO7XflKMfXItbS661V NvrIvP1KFQiekGoS7CxCC HswCrwBoE0z5J1Or7KKl2 7YC06LP75fHVd e7D2qDX8Y0ByIADjycecf ghqoHM3JUKbKYXerL85Rk 2woAwpWo6aBWXkLOU4NVS npAPnL3DvoO4t HaKxFCFvJJMoJ6OjhNKjU DcxO716ISjgSfB8NCUypc FiD8CtEXBpzFelFqW6u2K 3De7MEGryxww2 S7TgGrbvsCE+RN95AJItQ O40aXLaqTUay3hjxAe1Dr WsWJRoLIV4fPapQQaap7F pDVLwI20fvQYg c2U6 (more content not included)... Normal [facility] Coding Summary. CD:[id number] G h0bWw+PGhlYWQ+QX7OLRH iP81suKKxkU3NZ8oVUZ2B PLGUKMWKCA3MAI0xbAA2Y FcwJ3VkpgEw TsbsbEGkET50GRc3XIX0h HxeEZfiyC1gcMUaF4f0Ah DeHG58vB39VSqvNSQvIhY 3LjZpbjsgbWFy X3ybJfRoqEKzXts+PHRhY mxlIHdpZHRoPScxMDAlJy JlxNjlND0aAh7lMOAhVWB vbGxhcHNlOiBj f1vnDLLcSVhrON4zlXnqG 3SzuML8FXMzy9r5Kl30cX I+IPTqDOE6pMioWVscp20 7UuGzk1taFQW5 sHGqSBojUJL2B51il3Q0T FUsITWxBSQ1qYM8zF5dwQ iupzzqE4KfqAHqKiF6WWR 2rONwiW4glQga psgsxV1zShd+P13UWP0GG WKBML8NAyz7P0DvEpngzE I+AV04FBEqPM95xRKrbDF yc3mpbCa5HkDg DEVqHXQ3qCrfPOitv0ZnY LGoA18nwIFfj2L6RUAkzF mkiOWnXsFwlCY2lZ9fYKk xhcbrt7zmwneb Truft1eicj01bW66E38iD UgaYYBzKKH5DRLbWZQjlF nbad8bgN1tLg2+DKeyg1a do2svnDw5QvXz HYGbnoMlmNpqKVM9g9ErH q60J4OlxZzaq6FbDvi6nd 74tAPih3Y9uTT3UZiiBYM cyT6mPDudCeL4 NBEzZxBiyL44uXRnENsaW a5mvRokiXtrMI2rSUPeyp wuYTDhsO2oPTMplFTsmOt oXT3uTORmdera g221SnDtKYD7KKDouENaP 8RroE3nJtPnRXMeXTHoH3 ZpkXPmLJfeJ859EHdzKxX 8BZFmygXeQ0Fw VYBdsTtcCsN7a2H1Fy7Oq 3AtcyerAOZ1OTagCKJ5Ly R6WrUuPuT9Y1DaPkg3EBF saEukKB4bJ3Sm SXYgjwogliketMN4TSNcU TQhvG59hNVjUDnoFg4qg2 O2t534BUJvZPIcuC35Ay9 udDogMTBwdCBU sC7yxznar3mpvwfyUpOtK IWrGYq9DEr3ERJlbHwhAa IpQHR5GgD4EZH3cROgaB3 nbHvjxriinY4d Oyc+V77cvA0pSBR6TBX5y eutMTYkruPzFF22GS81E1 RyPjwvdGFibGU+PGRpdiB ozOukXG1rQzPa b3rif5AaDKphU0BpUOEzN TueWxe6XTCkAND0fAE3yZ 3mNKQcPSehm0M4oLW0R3O glyBdyw2vs9ux IABpRLdnT71rsZLts5H7S LAbiGR2BOMpgCduCuWlzT 93Oyc+MGFulSfju5NoNgc dl9haq6tekNz1 MsXxWWYxrfErvNfxRXN3z 7GsRq54Y39uLLbfUVLgSW XrHLKiUWLjiEcldk7lzL9 wIi8+PGNvbCB3 cMF6vI1hEUImRiY9OJkjD 235ZoKqdPYxBgsmt2tnc4 httXq8RqQmPQRrdxWpkZa jIWG6l8NeNd91 A99pATppQSPvIVPtUVKcP APabAmdvg4gqZ1tRj9+PC 5fd6qyye56uI19xWS+PHR mSNZ2sKtzTFuw QIHznF5rXBhnApX8XXCoR vLqtM40qMDeYCseSr5vnH ylaQesCV6qDOLrovoxe02 7CwRen9lnJYFn fPEmLYsgQRB3L57pm4J9Q IBpOFLeXTB2nES9bR9msZ lnbjogbGVmdDsgdmVydGl yPVsiTHerG039 IHRvcDsnPlBhdGllbnQgT nUwOQw5D1IcPxr9KNQrdD slQZ9sqWUvQHykNm2fwEe sqEubYV7mWBZi ivqaq417ZwRhy7utDZXdb XBfRGmbIHL9S96qu0J0JD YlOPSbCNV1yHB5yP1poZu nbjogbGVmdDsg fwTtnLeqOQbrDLwvR247H HRvcDsnPkJpcnRoIERhdG Q4LP20GM52jCGpi9W2aVO 8W6CfAUUowefj czyjbAH5VNVoBTBkzH96G e7jlCumEy6sYWHcGRE7VW QgyZLvD2RicR9tDvCaTSS nZUDcS9TzkKTc VGeyH446RWonJxV3WKTme aPjF1NxNFIdpJawYzH6p4 M9Pl6RP8J7KD03JI16eKU jn1Z1fTG3W5Pw KVKqbiijfudncQN6SPDgU JNkcS76Tv3oqHcwAl3tCL KlJTL4JDOnhWWiR7BfyR5 yOiAjMDAwMDAw C0FncUFrHGlkM507BHetT hQ7GNOujhOtI8MoIPNrcZ oyJbU0n6W1Ez8AYCb0KI4 6US46oLMlb4Q1 qBD1B7WaEYPvmmnduhiec SE4SSXvIQNerY96Uk1hdX ovWu6fMALvWXR2LXSlvIB qF4DxtZ6cQrBu BKXdDZHgN3EgiEScVGslB 223UEvpDwO5NZQzqgWaH2 MhOQWkoBvjOfD3z3M6Lw5 REMRxRK32GXD8 lKH6OW00ZU75J8WtQncgj GFibGU+PHRhYmxlIHdpZH RoPScxMDAlJyBzdHlsZT0 dSa0yYCAkVGSe fRqggXBbHuDgs0qhDWCxA YfcJI8rkFkvU8UrpZT9DO Mgx9l7Lk58C32cV5UajYU +PLHzjNA5dLO4 pY9hXdXkNvS3RHepW806I jVqbFAnHjpxk4utv0mpqG i8GpE2KGAoupZgqFtiAJY 6f0LbQu60K01h IHdpZHRoPSIxNSUiIHZhb Aqsgq1dzV1jQn0+PGNvbC P9gEI4fA7sKgVxNoM7DXu aK837TdXxdJAu Qmwgr6prf6pqnBg5XjCvV XOkbmYdlFooXUN0j0ByFf 43J1NstFvay7EvOyy0ut9 8pJNtf5D0cZD5 V9CnTRYrxpzmeWXxmDptX Y7ySPCxckzdWHYtcR1rJK SsO1v5WrNiHwK6NSqjO4M xyyQ7NGQtrGCr XIunJWF3J13jc9F9UBOiJ WHkSHJ5xFC6jM5nsWstzw ogbGVmdDsgdmVydGljYWw vFEdpK690YJMb qFodLCIjrP8cORVfzESll QauGH0pLSBtyeqvDbZUQt ZCRDHOFUzFGORCGO33NA0 3xHNhh7V5dHO0 E3FqWGYjjunqhpjydAT5N OCtGIHnqM54uRLeKGxqVs 3gf1P4r956EIPeHYGolK1 9Hn1dtApyPUPw kVTTeD4kipews3wazleuQ oTaKHRlZUk6KBy0HRZxbK yiJwRjCCY6XnJ5NND5kAN baD8tlRzdwobf yH5cGtd+QIWaFyAeVIs9H TwvdGQ+XEUkLWH5gNnsYV awHAAijP3xZNKyA8k7KmD cByC6EBfiT6Ol GURvholwUa06fG3xRfMmE tX0USqrA1WyotJ1BHIgfT LyLZqxEXJ0Y35uh0K9AFY rHQBnCWP1zAO5 gV5nsOwlgrvwrRQvbMelk oXetJgeTEuaYGfwA263IV JetOadZvb6JGatYMNnOI5 1IT19jIOpd9H5 pDY1E0QiPEQzanvwapsgn EF3SRJeZHSwjQ79dCZyCV twZt3dl0P7o046UIOqCGD ayN16Wu8dvJtj VQDhvGUKkI2htluee8jmf vhkDhPgAHZoQRm5RMu3KM XjfAreWxQzNSH0MzF9TYG 2tMUejQ6ofPws euditK3gDpy+RmVtYWxlP F97EL27lHJnd2M9jTX7I5 TzUQYpmcbixrbjkHQ8WEG vNOKqnG66oFNn RFvuXq5zm0T9u908TWPgD HKlsU20Gi7jeLwrTMNwcO QYxX8gwatva2xzrzssRzZ eTIUiAGb2DYs3 WCHtbIxvBxZpSUP3BsT0A ZG2lNJwrW0awSgmfhakqR 9wOyc+ANKpEHMaa4Aub9G cFP72ZZ10B5Cr PjwvdGFibGU+PHRhYmxlI HdpZHRoPScxMDAlJyBzdH zaMD6mRo2eJLMyPRMreWn pjVJhAeTiy2gx EOVhONgzXV1rpHvlL7Lrj DX2KHQdh2f9Hn56D98aZ8 JvdXA+JWBvwDR2cVZ2hY2 nThWwCcM3UKqp J541BtPmkPCuIzgsy4kai 0lwsIz8RlVnWJKsulNahN urAAG8l6FqNg11T93bRLs pZHRoPSIyMCUi AGBacCkgmj6guU7oPv2+P BFwcFI2eLA8pH4oJcTzGj S6VXmnW457UkGqcNXhQrl xM86hI3ZezAG+ NMIoOkw7SIBnbQcwQR7lu MTtGVhgFk7eGVJ5YxEdHn AgOIhiT3NhJMNasytcqte nfBR8YDXrNIUg oB65Sd9wkYmqBn1dWUZtZ DZ5SJYdzQYdT7IpgK1lAb TzGOWaGUEsQ4RdnGDwCDv mW868EIpbEoL1 QKFugpAdX5OjTGKwtIohB cB4t2Z6Gx4CqIlukJPmSZ 4hJaKfYZv1Y4PpDco7HFM csDkaDT3itVEd LDbfAb3woWqsxUjhKF1dZ NHghmyqw395OvBwo6gsQH EueBXxHMufEEP8Q36et0A 3AUJwEMLfSLG0 mGT5aD9ydKvkwqhhoGTuy DsgdmVydGljYWwtYWxpZ2 07PGKvvSmtZcSPKoc3T9C tLtm4XNWbaUwy VZ7zlZUeXKtiMt5roMxkl DxjOA7rHOKizzxki307Dq Nhh6urWGOxgDYpARzaIQD 1F33bw2W9WWTw VXKfSEH1zJP2rW2wpChdb jogbGVmdDsgdmVydGljYW liLYojX476KUWseWqeJc4 HHgp4X9AgGre1 GMAqdZakBH3rjXWfMEqeJ o2jdCaehRxqZL8xVUTmmq wqe445KlIpm3fqGDLxnEJ mUNmyMDW3I66a v0W1FSLaADPlGFP0bAC0y E8wkAkwagcxpYGldSgvrr IqwOejFFafRHpqO085TUP vcDsnPlBheWVy OjwvdGQ+WS79qm11I1NkU trqDtn0OWXmHIC3lUD0mH 4aPRAlDLiue3G6iMM4R8C ekdYpmu8oj0jk YXBz (more content not included)... Normal [facility] Enteric Panel by PCRon 07-18 C. coli+jejuni+upsaliensi s DNA ULICES+non-probe Ql (Stl) Not detected Normal [facility] Comment on above: Result Comment: Test ing was performed utilizing reverse senior qualitative researcher (RT), polymerase chain reaction (PCR), and array [...] nulcleic acid test. Performed By: #### 4 [id number], [id number], [id number], [id number], [id number], [id number] ####[facility] [address] [place] [address] E. coli stx1+stx2 genes ULICES+non-probe Ql (Stl) Negative Normal [facility] Comment on above: Performed By: #### 4 [id number], [id number], [id number], [id number], [id number], [id number] ####[facility] [address] [place] [address] Enteric Panel by PCR Negative Normal [facility] Enteric Panel Intrl QC Pass Normal [facility] Comment on above: Result Comment: Test ing was performed utilizing reverse senior qualitative researcher (RT), polymerase chain reaction (PCR), and array [...] 1 and 2. Performed By: #### 4 [id number], [id number], [id number], [id number], [id number], [id number] ####[facility] [address] [place] [address] Norovirus genogroup I+II RNA ULICES+non-probe Ql (Stl) Detected Abnormal [facility] Comment on above: Result Comment: Resu lts Called To [facility] for Dr. Jama By [facility] And Read Back For Confirmation On 07/18/2022 08:49:23 EDT. Performed By: #### 4 [id number], [id number], [id number], [id number], [id number], [id number] ####[facility] [address] [place] [address] Rotavirus A RNA ULICES+non-probe Ql (Stl) Not detected Normal [facility] Comment on above: Performed By: #### 4 [id number], [id number], [id number], [id number], [id number], [id number] ####[facility] [address] [place] [address] S. enterica+bongori DNA ULICES+non-probe Ql (Stl) Not detected Normal [facility] Comment on above: Result Comment: This test result should be correlated with clinical presentations and medical history by a healthcare provider to determine its clinical significance. Performed By: #### 4 [id number], [id number], [id number], [id number], [id number], [id number] ####[address] [place] [address] Shigella species+EIEC invasion plasmid antigen H ipaH gene ULICES+non-probe Ql (Stl) Not detected Normal [facility] Comment on above: Performed By: #### 4 [id number], [id number], 42887557, [id number], 68143589, [id number] ####[facility] [address] [place] [address] V. cholerae+parahaemolyti cus+vulnificus DNA ULICES+non-probe Ql (Stl) Not detected Normal [facility] Comment on above: Performed By: #### 4 [id number], 03637115, 23785944, [id number], 54697780, [id number] ####[address] [place] [address] Y. enterocolitica DNA ULICES+non-probe Ql (Stl) Not detected Normal [facility] Comment on above: Performed By: #### 4 [id number], 56520602, [id number], [id number], 16276684, 30953871 ####[facility] [address] [place] [address] C. diff by PCRon 07-17-2022 Clostridium difficile by PCR see comment Invalid Interpretation Code [facility] Comment on above: Result Comment: Unab le [...] its clinical significance. Performed By: #### 4 [id number], [id number], 84177811, [id number], 03475004, [id number] ####[facility] [address] [place] [address] Fecal WBC Lactoferrinon 07-02 Fecal WBC Lactoferrin Positive Abnormal Negative [facility] Comment on above: Result Comment: The semi-quantitative detection of elevated levels of fecal lactoferrin is a marker for fecal leukocytes and an indication of intestinal inflammation. Performed By: #### 4 [id number], 55937602, 44876376, [id number], 35269616, [id number] ####[facility] [address] [place] [address] Consent for Treatmenton 07-02 Consent for Treatment [id number]:127 Normal [facility] Gastroenterology Office/Clin ic Noteon 07-15-2022 Gastroenterology Office/Clinic Note Chief Complaint f/u ER- abd pain, diarrhea and vomiting HPI Staff This is a 76 year old female who presents today for a referral by Sue for abnormal radiology testing. Patient seen in [place] ER 01/2022 for complaints of diarrhea, abdominal pain and nausea.- CT and labs completed History of Present Illness Sylvia presents today for abdominal pain, diarrhea, and vomiting. She was recently seen in the [place] emergency room with abdominal pain, diarrhea, and vomiting. She notes that she had a heart transplant in [place] in 2017. Afterwards she experienced diarrhea which [...] She was prescribed Creon 24 mg at [facility] in 2017, due to being diagnosed [...] patient had a recent CT scan at [facility] that showed a small lesion in the [...] by h (more content not included)... Normal [facility] Comment on above: Result Comment: Elec tronically [...] Pancreatic insufficiency Pancreatic lesion Valvular heart disease [facility] SYLVIA HERRERA ([id number]) 1945 F Date Time Provider Department 07/05/22 SHO CROWLEY [facility] During your visit today, we recorded [...] another team. Sho Crowley APRN, ODETTE Pager: [phone] July 05, 2022 10:42 AM Post Heart [...] transplant. No Dr Caldera: Rfl: [id number] [[id number]] Order #: [id number] FUTURE Prescriptions as of 07/05/2022 - tacrolimus [...] mg by mouth three times daily. - ucjeyi-ozyzprmh-ceopw se (CREON) 24,000-76,000 -120,000 unit cpDR Take [...] 09/02/2019 A (more content not included)... Normal [facility]jas BOX TEST SENT OUTon 07-03-20 22 SENT TO REF LAB 07/03/2022 Normal [facility] Comment on above: Performed By: #### E RANDALL PINON #### [facility] [facility] [address] [place] [address] Dr. Hardeep Rivera CBC AUTO DIFFon 07-03-2022 BASO # 0.0 103/ul Normal 0.0-0.1 [facility] Comment on above: Performed By: #### C BC #### [facility] [address] [place] [address] Dr. Hardeep Rivera Basophils/100 WBC (Bld) 0.3 % Normal 0.2-2.0 [facility] Comment on above: Performed By: #### C BC #### [facility] [address] [place] [address] Dr. Hardeep Rivera EO # 0.1 103/ul Normal 0.0-0.7 [facility] Comment on above: Performed By: #### C BC #### [facility] [address] [place] [address] Dr. Hardeep Rivera Eosinophils/100 WBC (Bld) 0.9 % Normal 0.9-7.0 [facility] Comment on above: Performed By: #### C BC #### [facility] [address] [place] [address] Dr. Hardeep Rivera Erythrocyte distribution width (RBC) [Ratio] 12.2 % Normal 11.0-15.0 [facility] Comment on above: Performed By: #### C BC #### [facility] [address] [place] [address] Dr. Hardeep Rivera Hematocrit (Bld) [Volume fraction] 42.3 % Normal 36.0-48.0 [facility] Comment on above: Performed By: #### C BC #### [facility] [address] [place] [address] Dr. Hardeep Rivera Hemoglobin (Bld) [Mass/Vol] 14.0 g/dL Normal 12.0-16.0 [facility] Comment on above: Performed By: #### C BC #### [facility] [address] [place] [address] Dr. Hardeep Rivera IG # 0.04 10e3/ul Critically high 0.00-0.03 [facility] Comment on above: Performed By: #### C BC #### [facility] [address] [place] [address] Dr. Hardeep Rivera IG % 0.5 % Normal 0.0-0.5 [facility] Comment on above: Performed By: #### C BC #### [facility] [address] [place] [address] Dr. Hardeep Rivera LYMPH # 0.8 103/ul Critically low 1.2-3.8 [facility] Comment on above: Performed By: #### C BC #### [facility] [address] [address] [address] Hardeep Rivera Lymphocytes/100 WBC (Bld) 10.9 % Critically low 20.5-60.0 [facility] Comment on above: Performed By: #### C BC #### [facility] [address] [place] [address] Dr. Hardeep Rivera MANUAL DIFF REQ NO Normal [facility] Comment on above: Performed By: #### C BC #### [facility] [address] [place] [address] Dr. Hardeep Rivera MCH (RBC) [Entitic mass] 29.7 pg Normal 26.7-34.0 [facility] Comment on above: Performed By: #### C BC #### [facility] [address] [place] [address] Dr. Hardeep Rivera MCHC (RBC) [Mass/Vol] 33.1 g/dL Normal 29.9-35.2 [facility] Comment on above: Performed By: #### C BC #### [facility] [address] [place] [address] Dr. Hardeep Rivera MCV (RBC) [Entitic vol] 89.8 fL Normal 81.0-99.0 [facility] Comment on above: Performed By: #### C BC #### [facility] [address] [place] [address] Dr. Hardeep Rivera MONO # 0.9 103/ul Critically high 0.3-0.8 [facility] Comment on above: Performed By: #### C BC #### [facility] [address] [place] [address] Dr. Hardeep Rivera Monocytes/100 WBC (Bld) 11.1 % Normal 1.7-12.0 [facility] Comment on above: Performed By: #### C BC #### [facility] [address] [place] [address] Dr. Hardeep Rivera NEUT # 5.8 103/ul Normal 1.4-6.5 [facility] Comment on above: Performed By: #### C BC #### [facility] [address] [address] [address] Hardeep Rivera Neutrophils/100 WBC (Bld) 76.3 % Critically high 43.0-75.0 [facility] Comment on above: Performed By: #### C BC #### [facility] [address] [address] [address] Hardeep Rivera Platelet mean volume (Bld) [Entitic vol] 9.5 fL Normal 9.5-13.5 [facility] Comment on above: Performed By: #### C BC #### [facility] [address] [address] [address] Hardeep Rivera PLT 191 103/ul Normal 150-450 [facility] Comment on above: Performed By: #### C BC #### [facility] [address] [place] [address] Dr. Hardeep Rivera RBC 4.71 106/ul Normal 4.20-5.40 [facility] Comment on above: Performed By: #### C BC #### [facility] [address] [place] [address] Dr. Hardeep Rivera WBC 7.6 103/ul Normal 4.0-11.0 [facility] Comment on above: Performed By: #### C BC #### [facility] [address] [place] [address] Dr. Hardeep Clark 07-03-2022 CNPN Telephone ([facility]) SYLVIA HERRERA ([id number]) 1945 F Date Time Provider Department 07/03/22 SOY MCCANN [facility] During your visit today, we recorded the following information about you: Linden Faustina 07/03/2022 1:02 PM Signed Patient had labs drawn 07/03/22, uploaded to [employer] docs. Allergies As of Date: 07/03/2022 Noted [...] mg by mouth three times daily. - ziddpn-eitdysfs-tdayh se (CREON) 24,000-76,000 -120,000 unit cpDR Take [...] Status:Closed by LINDEN WEEMS on 07/03/22 Normal [facility] PROF CHEM 8 (BAS METB)on Anion gap [Moles/Vol] 12.9 mmol/L Normal [facility] Comment on above: Performed By: #### Deedee PINON UMICRO #### [facility] [address] [address] [address] Hardeep Rivera Calcium [Mass/Vol] 9.0 mg/dL Normal 8.5-10.1 [facility] Comment on above: Performed By: #### Deedee PINON UMICRO #### [facility] [address] [address] [address] Hardeep Rivera Chloride [Moles/Vol] 98 mmol/L Normal 98-107 [facility] Comment on above: Performed By: #### Deedee PINON UMICRO #### [facility] [address] [address] [address] Hardeep Rivera CO2 [Moles/Vol] 28.1 mmol/L Normal 21.0-32.0 [facility] Comment on above: Performed By: #### Deedee PINON UMICRO #### [facility] [address] [address] [address] Hardeep Rivera Creatinine [Mass/Vol] 1.64 mg/dL Critically high 0.55-1.02 [facility] Comment on above: Performed By: #### RANDALL OLSON #### [facility] [address] [place] [address] Dr. Hardeep Rivera EGFR-AF MARTINIQUAIS 37 mL/min/1.73m2 Critically low >=60 [facility] Comment on above: Performed By: #### RANDALL OLSON #### [facility] [address] [place] [address] Dr. Hardeep Rivera EGFR-NON AF MARTINIQUAIS 30 mL/min/1.73m2 Critically low >=60 [facility] Comment on above: Performed By: #### RANDALL OLSON #### [facility] [address] [place] [address] Dr. Hardeep Rivera Glucose [Mass/Vol] 114 mg/dL Critically high 74-106 [facility] Comment on above: Performed By: #### HARI OLSONRO #### [facility] [address] [place] [address] Dr. Hardeep Rivera Potassium [Moles/Vol] 4.0 mmol/L Normal 3.5-5.1 [facility] Comment on above: Performed By: #### RANDALL OLSON #### [facility] [address] [place] [address] Dr. Hardeep Rivera Sodium [Moles/Vol] 135 mmol/L Critically low 136-145 Th [facility] Comment on above: Performed By: #### HARI OLSONRO #### [facility] [address] [place] [address] Dr. Hardeep Rivera Urea nitrogen [Mass/Vol] 24.0 mg/dL Critically high 7.0-18.0 [facility] Comment on above: Performed By: #### HARI OLSONRO #### [facility] [address] [place] [address] Dr. Hardeep Rivera Urea nitrogen/Creatinine [Mass ratio] 14.6 mg/mg Normal [facility] Comment on above: Performed By: #### HARI OLSONRO #### [facility] [address] [id number] Hardeep Rivera Tacrolimus Bld-ncon 2021 Tacrolimus (Bld) [Mass/Vol] 12.4 ng/mL Normal 5.0-20.0 [facility] Comment on above: Order Comment: Speci [...] situation. Test performed by chemiluminescent immunoassay using [employer]. Performed By: #### 1 1253-2 ####[facility] [id number] [place] [address] [place] MG MAMM SCREEN 3D TRISHA CADon 05-28-2022 MG MAMM SCREEN 3D TRISHA CAD Patient: SYLVIA HERRERA Exam Date: 05/28/2022 : 1945 Gender:F Ordering : DR TAO ROONEY . Admission #: [id number] Family : Order #: [id number] CLICK HERE TO VIEW EXAM RADIOLOGY REPORT PROCEDURE: MAMMOGRAM SCREENING 3D BILATERAL CAD COMPARISON: MG MAMM SCREEN TRISHA W CAD, 08/14/2017. MG MAMM SCREEN 3D TIRSHA CAD, 05/22/2021. INDICATIONS: Screening mammography Calculator Name NCI Breast Cancer Risk Assessment Tool 5 Year Breast Cancer Risk 1.30% Lifetime Breast Cancer Risk 2.40% Personal Breast Cancer No Personal Ovarian Cancer No Treatments None Family Cancers None LOCATION: [facility] BREAST COMPOSITION: Heterogeneously dense,which may obscure small [...] Ibrahim MD on 05/28/2022 at 10:[address] [facility] Physician Referralon 022 Physician Referral [phone] [id number] Normal [facility] C[facility]N Telephone ([facility]) SYLVIA HERRERA ([id number]) 1945 F Date Time Provider Department 05/08/22 LOIDA MATHIAS [facility] During your visit today, we recorded the following information about you: Linden Faustina 05/08/2022 11:50 AM Signed Patient had labs drawn 05/07/22, uploaded to scanned docs. Linden Weems Administrative Jet Mechanic Loida Mathias APRN.CNP 05/08/2022 3:21 PM Signed [...] transplant. No Dr Ellerp: Rfl: TACROLIMUS/FK-506 BL [[id number]] Order #: [id number] FUTURE Prescriptions as of 05/08/2022 - tacrolimus [...] mg by mouth three times daily. - xubwsa-kiuhuqlq-jcoav se (CREON) 24,000-76,000 -120,000 unit cpDR Take [...] 05/19/2014 [facility] (more content not included)... Normal [facility]jas BOX TEST SENT OUTon 05-07-20 22 SENT TO REF LAB 05/07/2022 Normal [facility] Comment on above: Performed By: #### HARI OLSONRO #### [facility] [address] [place] [address] Dr. Hardeep Rivera CBC AUTO DIFFon 05-07-2022 BASO # 0.0 103/ul Normal 0.0-0.1 [facility] Comment on above: Performed By: #### Deedee PINON UMICRO #### [facility] [address] [place] [address] Dr. Hardeep Rivera Basophils/100 WBC (Bld) 0.4 % Normal 0.2-2.0 [facility] Comment on above: Performed By: #### Deedee PINON UMICRO #### [facility] [address] [place] [address] Dr. Hardeep Rivera EO # 0.1 103/ul Normal 0.0-0.7 [facility] Comment on above: Performed By: #### Deedee PINON UMICRO #### [facility] [address] [place] [address] Dr. Hardeep Rivera Eosinophils/100 WBC (Bld) 1.0 % Normal 0.9-7.0 [facility] Comment on above: Performed By: #### Deedee PINON, UMICRO #### [facility] [address] [place] [address] Dr. Hardeep Rivera Erythrocyte distribution width (RBC) [Ratio] 12.6 % Normal 11.0-15.0 [facility] Comment on above: Performed By: #### RANDALL OLSON #### [facility] [address] [place] [address] Dr. Hardeep Rivera Hematocrit (Bld) [Volume fraction] 44.0 % Normal 36.0-48.0 [facility] Comment on above: Performed By: #### HARI OLSONRO #### [facility] [address] [place] [address] Dr. Hardeep Rivera Hemoglobin (Bld) [Mass/Vol] 14.0 g/dL Normal 12.0-16.0 [facility] Comment on above: Performed By: #### HARI OLSONRO #### [facility] [address] [place] [address] Dr. Hardeep Rivera IG # 0.02 10e3/ul Normal 0.00-0.03 [facility] Comment on above: Performed By: #### HARI OLSONRO #### [facility] [address] [place] [address] Dr. Hardeep Rivera IG % 0.3 % Normal 0.0-0.5 [facility] Comment on above: Performed By: #### RANDALL OLSON #### [facility] [address] [place] [address] Dr. Hardeep Rivera LYMPH # 0.6 103/ul Critically low 1.2-3.8 [facility] Comment on above: Performed By: #### HARI OLSONRO #### [facility] [address] [place] [address] Dr. Hardeep Rivera Lymphocytes/100 WBC (Bld) 8.2 % Critically low 20.5-60.0 [facility] Comment on above: Performed By: #### HARI OLSONRO #### [facility] [address] [place] [address] Dr. Hardeep Rivera MANUAL DIFF REQ NO Normal [facility] Comment on above: Performed By: #### HARI OLSONRO #### [facility] [address] [place] [address] Dr. Hardeep Rivera MCH (RBC) [Entitic mass] 29.4 pg Normal 26.7-34.0 [facility] Comment on above: Performed By: #### Deedee PINON, UMICRO #### [facility] [address] [place] [address] Dr. Hardeep Rivera MCHC (RBC) [Mass/Vol] 31.8 g/dL Normal 29.9-35.2 [facility] Comment on above: Performed By: #### E KATHRIN, UMICRO #### [facility] [address] [place] [address] Dr. Hardeep Rivera MCV (RBC) [Entitic vol] 92.2 fL Normal 81.0-99.0 [facility] Comment on above: Performed By: #### Deedee PINON, UMICRO #### [facility] [address] [place] [address] Dr. Hardeep Rivera MONO # 0.8 103/ul Normal 0.3-0.8 [facility] Comment on above: Performed By: #### Deedee PINON, UMICRO #### [facility] [address] [place] [address] Dr. Hardeep Rivera Monocytes/100 WBC (Bld) 9.6 % Normal 1.7-12.0 [facility] Comment on above: Performed By: #### Deedee PINON, UMICRO #### [facility] [address] [place] [address] Dr. Hardeep Rivera NEUT # 6.3 103/ul Normal 1.4-6.5 [facility] Comment on above: Performed By: #### E KATHRIN, UMICRO #### [facility] [address] [place] [address] Dr. Hardeep Rivera Neutrophils/100 WBC (Bld) 80.5 % Critically high 43.0-75.0 [facility] Comment on above: Performed By: #### E KATHRIN, UMICRO #### [facility] [address] [place] [address] Dr. Hardeep Rivera Platelet mean volume (Bld) [Entitic vol] 10.1 fL Normal 9.5-13.5 [facility] Comment on above: Performed By: #### HARI OLSONRO #### [facility] [address] [place] [address] Dr. Hardeep Rivera PLT 188 103/ul Normal 150-450 [facility] Comment on above: Performed By: #### HARI OLSONRO #### [facility] [address] [place] [address] Dr. Hardeep iRvera RBC 4.77 106/ul Normal 4.20-5.40 [facility] Comment on above: Performed By: #### HARI OLSONRO #### [facility] [address] [place] [address] Dr. Hardeep Rivera WBC 7.8 103/ul Normal 4.0-11.0 [facility] Comment on above: Performed By: #### HARI OLSONRO #### [facility] [address] [place] [address] Dr. Hardeep Rivera PROF CHEM 8 (BAS METB)on Anion gap [Moles/Vol] 11.9 mmol/L Normal [facility] Comment on above: Performed By: #### RANDALL OLSON #### [facility] [address] [place] [address] Dr. Hardeep Rivera Calcium [Mass/Vol] 8.7 mg/dL Normal 8.5-10.1 [facility] Comment on above: Performed By: #### HARI OLSONRO #### [facility] [address] [place] [address] Dr. Hardeep Rivera Chloride [Moles/Vol] 99 mmol/L Normal 98-107 [facility] Comment on above: Performed By: #### HARI OLSONRO #### [facility] [address] [place] [address] Dr. Hardeep Rivera CO2 [Moles/Vol] 27.1 mmol/L Normal 21.0-32.0 [facility] Comment on above: Performed By: #### HARI OLSONRO #### [facility] [address] [address] [address] Hardeep Rivera Creatinine [Mass/Vol] 1.62 mg/dL Critically high 0.55-1.02 [facility] Comment on above: Performed By: #### HARI OLSONRO #### [facility] [address] [address] [address] Hardeep Rivera EGFR-AF MARTINIQUAIS 37 mL/min/1.73m2 Critically low >=60 [facility] Comment on above: Performed By: #### Deedee PINON UMICRO #### [facility] [address] [address] [address] Hardeep Rivera EGFR-NON AF MARTINIQUAIS 31 mL/min/1.73m2 Critically low >=60 [facility] Comment on above: Performed By: #### Deedee PINON UMICRO #### [facility] [address] [place] [address] Dr. Hardeep Rivera Glucose [Mass/Vol] 73 mg/dL Critically low 74-106 Th [facility] Comment on above: Performed By: #### Deedee PINON UMICRO #### [facility] [address] [address] [address] Hardeep Rivera Potassium [Moles/Vol] 4.0 mmol/L Normal 3.5-5.1 [facility] Comment on above: Performed By: #### Deedee PINON UMICRO #### [facility] [address] [address] [address] Hardeep Rivera Sodium [Moles/Vol] 134 mmol/L Critically low 136-145 Th [facility] Comment on above: Performed By: #### Deedee PINON UMICRO #### [facility] [address] [address] [address] Hardeep Rivera Urea nitrogen [Mass/Vol] 33.0 mg/dL Critically high 7.0-18.0 [facility] Comment on above: Performed By: #### Deedee PINON UMICRO #### [facility] [address] [address] [address] Hardeep Rivera Urea nitrogen/Creatinine [Mass ratio] 20.4 mg/mg Normal [facility] Comment on above: Performed By: #### E RANDALL PINON #### [facility] [address] [address] [address] Hardeep Rivera TACROLIMUS/FK-506 BLoneri 05-07 Tacrolimus (Bld) [Mass/Vol] 3.4 ng/mL Low 5.0-20.0 [facility] Comment on above: Order Comment: Speci [...] Test performed by chemiluminescent immunoassay using [employer]. Performed By: #### F K506 ####[facility] [id number] [address] [facility] Kay 05-03-2022 CNPN Telephone ([facility]) SYLVIA HERRERA ([id number]) 1945 F Date Time Provider Department 05/03/22 SHO CROWLEY [facility] During your visit today, we recorded the following information about you: Sho Crowley APRN.[employer]ELT HOUSE CENTRIFUGAL OPERATOR 05/03/2022 2:58 PM Signed received phone call from [facility] Cardiology group requesting patient's Tacrolimus levels from 04/24. Faxed results to [phone]. Allergies As of Date: 05/03/2022 Noted Allergy [...] mg by mouth three times daily. - hnvrfl-mnwrejnc-yqtmm se (CREON) 24,000-76,000 -120,000 unit cpDR Take [...] Status:Closed by SHO CROWLEY on 05/03/22 Normal [facility] Rojas BOX TEST SENT OUTon 04-24-20 SENT TO REF LAB 04/24/2022 Normal [facility] Comment on above: Performed By: #### RANDALL OLSON #### [facility] [address] [place] [address] Dr. Hardeep Rivera [facility] 04-24-2022 CNPN Telephone ([facility]) SYLVIA HERRERA ([id number]) 1945 F Date Time Provider Department 04/24/22 LOIDA MATHIAS [facility] During your visit today, we recorded the following information about you: Linden Weems 04/24/2022 1:31 PM Signed Patient left message that she had labs drawn today. Linden Weems Administrative Jet Mechanic Post Heart Transplant J3-4 Loida Mathias APRN.[employer] HOUSE CENTRIFUGAL OPERATOR 04/26/2022 11:25 AM Signed Received FK level 4.5, drawn 04/24 My chart message sent to patient. Advised to remain on current dose and keep our office updated re: her plans for post transplant follow up. Loida Mathias APRN.MELT HOUSE CENTRIFUGAL OPERATOR April 26, 2022 11:24 AM Component Latest [...] mg by mouth three times daily. - sjzhgs-qqlxxsja-mmkmd se (CREON) 24,000-76,000 -120,000 unit cpDR Take [...] Status:Closed by LINDEN WEEMS on 04/24/22 Normal [facility] TACROLIMUS/FK-506 BLon 04-24 Tacrolimus (Bld) [Mass/Vol] 4.5 ng/mL Low 5.0-20.0 [facility] Comment on above: Order Comment: Speci [...] Test performed by chemiluminescent immunoassay using [employer]. Performed By: #### F K506 ####[facility] [id number] [place] [address] [place] FK506 (TACROLIMUS) WHOLE BLO ODon 04-11-2022 Tacrolimus (FK506), Blood 7.3 ng/mL Normal 2.0-20.0 [facility] Comment on above: Result Comment: Trou gh (immediately following transplant) 15.0 . Trough (steady state, 2 weeks or more after transplant): 3.0 - 8.0 . Performed by LC-MS/MS technology. Performed By: #### RANDALL OLSON #### [facility] [address] [place] [address] Dr. Hardeep Rivera BOX TEST SENT OUTon 04-09-20 22 SENT TO REF LAB 04/09/2022 Normal [facility] Comment on above: Performed By: #### RANDALL OLSON #### [facility] [address] [place] [address] Dr. Hardeep Rivera CBC AUTO DIFFon 04-09-2022 BASO # 0.0 103/ul Normal 0.0-0.1 [facility] Comment on above: Performed By: #### RANDALL OLSON #### [facility] [address] [place] [address] Dr. Hardeep Rivera Basophils/100 WBC (Bld) 0.1 % Critically low 0.2-2.0 [facility] Comment on above: Performed By: #### HARI OLSONRO #### [facility] [address] [place] [address] Dr. Hardeep Rivera EO # 0.1 103/ul Normal 0.0-0.7 [facility] Comment on above: Performed By: #### HARI OLSONRO #### [facility] [address] [place] [address] Dr. Hardeep Rivera Eosinophils/100 WBC (Bld) 1.2 % Normal 0.9-7.0 [facility] Comment on above: Performed By: #### HARI OLSONRO #### [facility] [address] [place] [address] Dr. Hardeep Rivera Erythrocyte distribution width (RBC) [Ratio] 12.6 % Normal 11.0-15.0 [facility] Comment on above: Performed By: #### Deedee PINON UMICRO #### [facility] [address] [place] [address] Dr. Hardeep Rivera Hematocrit (Bld) [Volume fraction] 44.1 % Normal 36.0-48.0 [facility] Comment on above: Performed By: #### Deedee PINON UMICRO #### [facility] [address] [place] [address] Dr. Hardeep Rivera Hemoglobin (Bld) [Mass/Vol] 14.1 g/dL Normal 12.0-16.0 [facility] Comment on above: Performed By: #### Deedee PINON UMICRO #### [facility] [address] [place] [address] Dr. Hardeep Rivera IG # 0.02 10e3/ul Normal 0.00-0.03 [facility] Comment on above: Performed By: #### Deedee PINON UMICRO #### [facility] [address] [place] [address] Dr. Hardeep Rivera IG % 0.3 % Normal 0.0-0.5 [facility] Comment on above: Performed By: #### Deedee PINON UMICRO #### [facility] [address] [place] [address] Dr. Hardeep Rivera LYMPH # 0.7 103/ul Critically low 1.2-3.8 [facility] Comment on above: Performed By: #### Deedee PINON UMICRO #### [facility] [address] [place] [address] Dr. Hardeep Rivera Lymphocytes/100 WBC (Bld) 10.8 % Critically low 20.5-60.0 [facility] Comment on above: Performed By: #### Deedee PINON UMICRO #### [facility] [address] [place] [address] Dr. Hardeep Rivera MANUAL DIFF REQ NO Normal [facility] Comment on above: Performed By: #### Deedee PINON UMICRO #### [facility] [address] [place] [address] Dr. Hardeep Rivera MCH (RBC) [Entitic mass] 29.3 pg Normal 26.7-34.0 [facility] Comment on above: Performed By: #### HARI OLSONRO #### [facility] [address] [place] [address] Dr. Hardeep Rivera MCHC (RBC) [Mass/Vol] 32.0 g/dL Normal 29.9-35.2 [facility] Comment on above: Performed By: #### HARI OLSONRO #### [facility] [address] [place] [address] Dr. Hardeep Rivera MCV (RBC) [Entitic vol] 91.7 fL Normal 81.0-99.0 [facility] Comment on above: Performed By: #### HARI OLSONRO #### [facility] [address] [place] [address] Dr. Hardeep Rivera MONO # 0.7 103/ul Normal 0.3-0.8 [facility] Comment on above: Performed By: #### HARI OLSONRO #### [facility] [address] [place] [address] Dr. Hardeep Rivera Monocytes/100 WBC (Bld) 10.8 % Normal 1.7-12.0 [facility] Comment on above: Performed By: #### HARI OLSONRO #### [facility] [address] [place] [address] Dr. Hardeep Rivera NEUT # 5.2 103/ul Normal 1.4-6.5 [facility] Comment on above: Performed By: #### AKSHAT OLSONICRO #### [facility] [address] [place] [address] Dr. Hardeep Rivera Neutrophils/100 WBC (Bld) 76.8 % Critically high 43.0-75.0 [facility] Comment on above: Performed By: #### HARI OLSONRO #### [facility] [address] [place] [address] Dr. Hardeep Rivera Platelet mean volume (Bld) [Entitic vol] 9.8 fL Normal 9.5-13.5 [facility] Comment on above: Performed By: #### Deedee PINON UMICRO #### [facility] [address] [place] [address] Dr. Hardeep Rivera PLT 200 103/ul Normal 150-450 [facility] Comment on above: Performed By: #### Deedee PINON UMICRO #### [facility] [address] [place] [address] Dr. Hardeep Rivera RBC 4.81 106/ul Normal 4.20-5.40 [facility] Comment on above: Performed By: #### Deedee PINON UMICRO #### [facility] [address] [place] [address] Dr. Hardeep Rivera WBC 6.7 103/ul Normal 4.0-11.0 [facility] Comment on above: Performed By: #### Deedee PINON UMICRO #### [facility] [address] [place] [address] Dr. Hardeep Rivera PROF CHEM 8 (BAS METB)on Anion gap [Moles/Vol] 9.1 mmol/L Normal [facility] Comment on above: Performed By: #### Deedee PINON UMICRO #### [facility] [address] [place] [address] Dr. Hardeep Rivera Calcium [Mass/Vol] 8.3 mg/dL Critically low 8.5-10.1 Th [facility] Comment on above: Performed By: #### Deedee PINON UMICRO #### [facility] [address] [place] [address] Dr. Hardeep Rivera Chloride [Moles/Vol] 100 mmol/L Normal 98-107 [facility] Comment on above: Performed By: #### Deedee PINON UMICRO #### [facility] [address] [place] [address] Dr. Hardeep Rivera CO2 [Moles/Vol] 28.1 mmol/L Normal 21.0-32.0 [facility] [place] Comment on above: Performed By: #### Deedee PINON UMICRO #### [facility] [address] [place] [address] Dr. Hardeep Rivera Creatinine [Mass/Vol] 1.54 mg/dL Critically high 0.55-1.02 [facility] Comment on above: Performed By: #### HARI OLSONRO #### [facility] [address] [address] [address] Hardeep Rivera EGFR-AF MARTINIQUAIS 40 mL/min/1.73m2 Critically low >=60 [facility] Comment on above: Performed By: #### HARI OLSONRO #### [facility] [address] [address] [address] Hardeep Rivera EGFR-NON AF MARTINIQUAIS 33 mL/min/1.73m2 Critically low >=60 [facility] Comment on above: Performed By: #### HARI OLSONRO #### [facility] [address] [place] [address] Dr. Hardeep Rivera Glucose [Mass/Vol] 122 mg/dL Critically high 74-106 T [facility] Comment on above: Performed By: #### HARI OLSONRO #### [facility] [address] [place] [address] Dr. Hardeep Rivera Potassium [Moles/Vol] 4.2 mmol/L Normal 3.5-5.1 [facility] Comment on above: Performed By: #### HARI OLSONRO #### [facility] [address] [place] [address] Dr. Hardepe Rivera Sodium [Moles/Vol] 133 mmol/L Critically low 136-145 Th [facility] Comment on above: Performed By: #### AKSHAT OLSONICRO #### [facility] [address] [place] [address] Dr. Hardeep Rivera Urea nitrogen [Mass/Vol] 28.0 mg/dL Critically high 7.0-18.0 [facility] Comment on above: Performed By: #### AKSHAT OLSONICRO #### [facility] [address] [address] [address] Hardeep Rivera Urea nitrogen/Creatinine [Mass ratio] 18.2 mg/mg Normal [facility] Comment on above: Performed By: #### E RANDALL PINON #### [facility] [address] [address] [address] Hardeep Rivera TACROLIMUS/FK-506 BLon 04-09 Tacrolimus (Bld) [Mass/Vol] 9.9 ng/mL Normal 5.0-20.0 [facility] Comment on above: Order Comment: Speci [...] Test performed by chemiluminescent immunoassay using [employer] Helper. Performed By: #### F K506 ####[facility] [id number] [address] Eduardo 10-10-2021 CNPN Telephone ([facility] SYLVIA HERRERA ([id number]) 1945 F Date Time Provider Department 10/10/21 LOIDA MATHIAS [facility] During your visit today, we recorded the following information about you: Linden Weems 10/10/2021 11:57 AM Signed Patient had labs drawn today Linden Weems Administrative Jet Mechanic Linden Weems 10/11/2021 10:57 AM Signed Labs uploaded to scanned docs. Linden Weems Administrative Jet Mechanic Loida Mathias APRN.MELT HOUSE CENTRIFUGAL OPERATOR 10/12/2021 12:28 PM Signed Received outside labs drawn 10/10 -- FK 10.1 Cr 1.4 BUN 24 K 4.8 FBS 105 WBC 8300 Hgb 13 Hct 42 Plts 209 Called and left message for patient. Advised if this was a good 12 hr trough, to reduce Tacrolimus to 0.5 mg BID. Repeat labs in 2 weeks. Loida Mathias APRN.CNP October 12, 2021 12:27 PM Loida [...] transplant. No Dr Caldera: Rfl: TACROLIMUS/FK-506 BL [[id number]] Order #: [id number] FUTURE Prescriptions as of 10/12/2021 - tacrolimus [...] mg by mouth three times daily. - kzjjpr-gqurijqh-dqzql se (CREON) 24,000-76,000 -120,000 unit cpDR Take [...] [J18.9] 11/29 (more content not included)... Normal [facility] Tacrolimus / [id number] 09- 021 Tacrolimus / FK506 10.1 ng/mL Normal 5.0-20.0 [facility] Comment on above: Result Comment: Thes [...] Test performed by chemiluminescent immunoassay using [employer] Helper. Performed By: #### F K506 ####[facility], [place] [id number] Eduardo 09-13-2021 CNPN Telephone ([facility]) SYLVIA HERRERA ([id number]) 1945 F Date Time Provider Department 09/13/21 ARELIS NEWSOME [facility] During your visit today, we recorded the following information about you: Linden Faustina 09/13/2021 2:52 PM Signed S/w pt, due to transportation and financial constraints she is unable to come to [place] for appointments. Patient is working with her home health care case manager to establish care with a local drug abuse worker (had previously been followed by one in [place]).Dr Rice has agreed and plan going forward will be to do a phone visit with pt on 10/03 and she will follow up in the interim with her local Creative Director. Sending pt mailers and lab order, she will get those done as soon as she can. Linden Faustina Administrative Jet Mechanic Allergies As of Date: 09/13/2021 Noted Allergy [...] mg by mouth three times daily. - mjmylg-owgajqqi-ruqpc se (CREON) 24,000-76,000 -120,000 unit cpDR Take [...] Encounter Status:Closed by LINDEN WEEMS on 09/13/21 [facility] OBSOLETEon 09-12-2021 OBSOLETE Refill ([facility] ) SYLVIA HERRREA ([id number]) 1945 F Date Time Provider Department 09/12/21 SANDRITA GUERRERO [facility] During your visit today, we recorded [...] mg by mouth three times daily. - frvzdh-usgddulu-zrfcs se (CREON) 24,000-76,000 -120,000 unit cpDR Take [...] Status:Closed by SANDRITA GUERRERO on 09/12/21 Normal [facility] Vital Signs Date Time Vital Sign Value Performing Clinician Dami charles 04-08-2023 06:45-0400 Diastolic blood pressure 76 mm[Hg] [facility] 04-08-2023 06:45-0400 Heart rate 59 /min [facility] 04-08-2023 06:45-0400 Hourly Rounding Richard [facility] 04-08-2023 06:45-0400 Mean blood pressure 106 mm[Hg] Richard Roby [facility] 04-08-2023 06:45-0400 Respiratory rate 18 /min Richard Roby [facility] 04-08-2023 06:45-0400 SaO2% (BldA) [Mass fraction] 96 % Richard Roby [facility] 04-08-2023 06:45-0400 Systolic blood pressure 167 mm[Hg] Richard Roby [facility] 04-08-2023 05:30-0400 Diastolic blood pressure 88 mm[Hg] Richard Roby [facility] 04-08-2023 05:30-0400 Heart rate 52 /min Richard Roby [facility] 04-08-2023 05:30-0400 Hourly Rounding Richard Roby [facility] 04-08-2023 05:30-0400 Mean blood pressure 114 mm[Hg] Richard Roby [facility] 04-08-2023 05:30-0400 Respiratory rate 18 /min Richard Roby [facility] 04-08-2023 05:30-0400 SaO2% (BldA) [Mass fraction] 95 % Richard Roby [facility] 04-08-2023 05:30-0400 Systolic blood pressure 167 mm[Hg] Richard Roby [facility] 04-08-2023 04:39-0400 Diastolic blood pressure 90 mm[Hg] Richard Roby [facility] 04-08-2023 04:39-0400 Heart rate 56 /min Richard Roby [facility] 04-08-2023 04:39-0400 Hourly Rounding Richard Roby [facility] 04-08-2023 04:39-0400 Mean blood pressure 112 mm[Hg] Richard Roby [facility] 04-08-2023 04:39-0400 Respiratory rate 17 /min Richard Roby [facility] 04-08-2023 04:39-0400 SaO2% (BldA) [Mass fraction] 94 % Richard Roby [facility] 04-08-2023 04:39-0400 Systolic blood pressure 155 mm[Hg] Richard Roby [facility] 04-07-2023 21:48-0400 Respiratory rate 18 /min Richard Roby [facility] 04-07-2023 21:19-0400 Body temperature 98.06 [degF] Richard Roby [facility] 04-07-2023 21:19-0400 Heart rate 65 /min Richard Roby [facility] 04-07-2023 21:19-0400 Respiratory rate 19 /min Richard Roby [facility] Encounters Encounter Date Encounter Type Care Provider Facility Start: 11-12-2023 End: 11-12-2023 ambulatory [facility] Start: 08-07-2023 End: 08-07-2023 ambulatory [facility] Start: 04-07-2023 End: 04-08-2023 Emergency department patient visit Richardchaya Low Roby Facility:[facility] Start: 04-07-2023 End: 04-08-2023 Emergency department patient visit Richard Ca [facility] Start: 03-05-2023 End: 03-05-2023 ambulatory DUYEN ROGERS Facility:[facility] Start: 02-26-2023 End: 02-27-[address] ANISHA DINH Facility:[facility] Start: 02-14-2023 End: 02-14-2023 ambulatory NANCY REYES . Facility:[facility] Start: 02-13-2023 End: 02-14-2023 ambulatory DUYEN ROGERS Facility:[facility] Start: 02-11-2023 End: 02-12-2023 ambulatory [facility] Start: 02-09-2023 End: 02-10-[address] ANISHA DINH Facility:[facility] Start: 01-09-2023 End: 01-10-[address] TAO ROONEY . Facility:[facility] Start: 01-07-2023 End: 01-07-2023 ambulatory [facility] Start: 12-13-2022 End: 12-14-2022 ambulatory DUYEN ROGERS Facility:[facility] Start: 12-11-2022 End: 12-12-[address] TAO ROONEY . Facility:[facility] Start: 11-14-2022 End: 11-14-2022 ambulatory DUYEN ROGERS Facility:[facility] Start: 10-03-2022 End: 10-03-2022 ambulatory DUYEN ROGERS Facility:[facility] Start: 09-08-2022 Refill Sandrita Guerrero APRN.MELT HOUSE CENTRIFUGAL OPERATOR Work Phone: Cardiology Comment on above: Refill Request Start: 08-04-2022 End: 08-04-2022 ambulatory NANCY REYES . Facility:[facility] Start: 08-02-2022 Telephone encounter Loida Mathias APRN.CNP Work Phone: Cardiology Comment on above: Heart Transplant Fol low Up (Labs/) Start: 08-02-2022 End: 08-03-[address] TAO ROONEY . Facility:[facility] Start: 07-27-[address] TAO ROONEY . Facili ty:[facility] Start: 07-17-2022 End: 07-18-2022 ambulatory [facility] Facility:[facility] Start: 07-16-2022 End: 07-17-2022 ambulatory [facility] Facility:[facility] Start: 07-16-2022 End: 07-16-2022 Patient encounter procedure [facility] Start: 07-12-2022 End: 07-13-2022 ambulatory [facility] Start: 07-05-2022 Telephone encounter Sho Crowley APRN.MELT HOUSE CENTRIFUGAL OPERATOR Work Phone: Cardiology Comment on above: Heart Transplant Fol low Up; Lab Meeting Start: 07-03-2022 Telephone encounter Soy Mccann RN [facility] Comment on above: Heart Transplant Fol low Up (labs) Start: 07-03-2022 End: 07-04-[address] TAO ROONEY . Facility:[facility] Start: 05-28-2022 End: 05-29-[address] TAO ROONEY . Facility:[facility] Start: 05-23-2022 ambulatory [facility] Facility: [facility] Start: 05-08-2022 Telephone encounter Loida Mathias APRN.MELT HOUSE CENTRIFUGAL OPERATOR Work Phone: Cardiology Comment on above: Heart Transplant Fol low Up (labs) Start: 05-07-2022 End: 05-08-[address] TAO ROONEY . Facility: Start: 04-24-2022 Telephone encounter Loida Mathias APRN.MELT HOUSE CENTRIFUGAL OPERATOR Work Phone: Cardiology Comment on above: Heart Transplant Fol low Up Start: 04-24-2022 End: 04-25-[address] TAO ROONEY . Facility:[facility] Start: 04-20-[address] TAO ROONEY . Facili ty:[facility] Start: 04-11-2022 ambulatory Loida fontaine APRN.MELT HOUSE CENTRIFUGAL OPERATOR Work Phone: [facility] Start: 04-11-2022 Follow-up encounter Loida Mathias APRN.MELT HOUSE CENTRIFUGAL OPERATOR Work Phone: Cardiology Comment on above: Heart Transplant Fol low Up (Labs) Start: 04-09-2022 End: 04-10-[address] TAO ROONEY . Facility: Start: 04-06-2022 Orders Only Loida fontaine APRN.MELT HOUSE CENTRIFUGAL OPERATOR Work Phone: Cardiology Comment on above: Heart replaced by tr ansplant (HCC) (Primary Dx) Start: 04-04-2022 Refill Loida fontaine APRN.MELT HOUSE CENTRIFUGAL OPERATOR Work Phone: Cardiology Comment on above: Rx Refills Start: 10-03-2021 End: 10-03-2021 ambulatory NICOLETTE RICE [facility] Procedures Date Procedure Procedure Detail Performing Clinician Start: 08-10-2013 H/O: heart recipient Heart transplan arianna Loida Mathias APRN.MELT HOUSE CENTRIFUGAL OPERATOR Work Phone: H/O: heart recipient Heart transplanted ( HCC) Loida Bishopo SURVEILLANCE DUAL RATE OFFICER.MELT HOUSE CENTRIFUGAL OPERATOR Work Phone: H/O: heart recipient Heart repla nitish by transplant (HCC) Loida Woodmmarino SURVEILLANCE DUAL RATE OFFICER.MELT HOUSE CENTRIFUGAL OPERATOR Work Phone: H/O: heart recipient Heart transplanted ( HCC) Loida Gustafsonrino SURVEILLANCE DUAL RATE OFFICER.MELT HOUSE CENTRIFUGAL OPERATOR Work Phone: H/O: heart recipient Heart transplanted ( HCC) Loida Woodmmarino SURVEILLANCE DUAL RATE OFFICER.MELT HOUSE CENTRIFUGAL OPERATOR Work Phone: H/O: heart recipient Heart transplanted ( HCC) Sho Crowley SURVEILLANCE DUAL RATE OFFICER.MELT HOUSE CENTRIFUGAL OPERATOR Work Phone: H/O: heart recipient Hx of heart transplant( Confirmed ) Eddie JAMA Plan of Treatment Date Care Activity Detail Author Start: 08-02-2022 Influenza vaccination INFLUENZA (#1) [facility] Start: 07-19-2022 End: 09-18-2022 Tacrolimus [Mass/volume] in Blood TACROLIMUS/FK-506 BL Lab Routine Heart transplanted (HCC) Expected: 07/19/2022 (Approximate), Expires: 09/18/2022 [facility] Work Phone: Comment on above: Expected: 07/19/2022 (Approximate), Expires: 09/18/2022 Start: 05-21-2022 End: 07-21-2022 TACROLIMUS/FK-506 BL TACROLIMUS/FK-506 BL Lab Routine Heart transplanted (HCC) Expected: 05/21/2022, Expires: 07/21/2022 [facility] Work Phone: Comment on above: Expected: 05/21/2022 , Expires: 07/21/2022 Start: 04-23-2022 End: 06-23-2022 TACROLIMUS/FK-506 BL TACROLIMUS/FK-506 BL Lab Routine Heart transplanted (HCC) Expected: 04/23/2022, Expires: 06/23/2022 [facility] Work Phone: Comment on above: Expected: 04/23/2022 , Expires: 06/23/2022 Start: 04-09-2022 End: 06-09-2022 CBC W Auto Differential panel - Blood CBC + DIFF Lab Routine Heart replaced by transplant (HCC) Expected: 04/09/2022, Expires: 06/09/2022 [facility] Work Phone: Comment on above: Expected: 04/09/2022 , Expires: 06/09/2022 Start: 04-09-2022 End: 06-09-2022 Comprehensive metabolic 2000 panel - Serum or Plasma COMP METABOLIC PANEL Lab Routine Heart replaced by transplant ([facility]) Expected: 04/09/2022, Expires: 06/09/2022 [facility] Work Phone: Comment on above: Expected: 04/09/2022 , Expires: 06/09/2022 Start: 04-09-2022 End: 04-06-2023 HEART/LUNG REC POST TX DSA HEART/LUNG REC POST TX DSA ALLOGEN Routine Heart replaced by transplant ([facility]) Expected: 04/09/2022, Expires: 04/06/2023 [facility] Work Phone: Comment on above: Expected: 04/09/2022 , Expires: 04/06/2023 Start: 04-09-2022 End: 06-09-2022 LIPID PANEL BASIC LIPID PANEL BASIC Lab Routine Heart replaced by transplant ([facility]) Expected: 04/09/2022, Expires: 06/09/2022 [facility] Work Phone: Comment on above: Expected: 04/09/2022 , Expires: 06/09/2022 Start: 04-09-2022 End: 06-09-2022 Magnesium [Mass/volume] in Serum or Plasma MAGNESIUM BLD Lab Routine Heart replaced by transplant ([facility]) Expected: 04/09/2022, Expires: 06/09/2022 [facility] Work Phone: Comment on above: Expected: 04/09/2022 , Expires: 06/09/2022 Start: 04-09-2022 End: 06-09-2022 TACROLIMUS/FK-506 BL TACROLIMUS/FK-506 BL Lab Routine Heart replaced by transplant ([facility]) Expected: 04/09/2022, Expires: 06/09/2022 [facility] Work Phone: Comment on above: Expected: 04/09/2022 , Expires: 06/09/2022 Start: 04-09-2022 End: 06-09-2022 URINALYSIS, DIPSTICK ONLY URINALYSIS, DIPSTICK ONLY Lab Routine Heart replaced by transplant ([facility]) Expected: 04/09/2022, Expires: 06/09/2022 [facility] Work Phone: Comment on above: Expected: 04/09/2022 , Expires: 06/09/2022 Start: 12-02-2021 ADVANCE DIRECTIVE DISCUSSION ADVANCE DIRECTIVE DISCUSSION [facility] Start: 09-26-2021 COVID-19 VACCINE (3 - Pfizer risk 4-dose series) COVID-19 VACCINE (3 - Pfizer risk 4-dose series) [facility] Start: 09-26-2021 COVID-19 VACCINE (3 - Pfizer risk series) COVID-19 VACCINE (3 - Pfizer risk series) [facility] Start: 03-04-2020 Hepatitis B surface antibody level LDL CHOLESTEROL [facility] Start: 06-14-2015 Hemoglobin A1c/Hemoglobin.total in Blood HBA1C [facility] Start: 11-01-2013 PNEUMOCOCCAL: 65+ (3 - PCV) PNEUMOCOCCAL: 65+ (3 - PCV) [facility] Start: 2009 ADULT PREVNAR ADULT PREVNAR [facility] Start: 1994 SHINGRIX VACCINE (1 of 2) SHINGRIX VACCINE (1 of 2) [facility] Start: 1963 SHINGRIX VACCINE (1 of 2) SHINGRIX VACCINE (1 of 2) [facility] Start: 1963 Urine microalbumin profile DTAP,TDAP,TD (1 - Tdap) [facility] Start: 1962 ANNUAL PCP TEAM SOCK BOARDER BRENNAN DISEASE VISIT ANNUAL PCP TEAM CHRONIC DISEASE VISIT [facility] Start: 1962 BP CONTROLLED (<130/80) BP CONTROLLE D (<130/80) [facility] Start: 1954 3 comp foot exam completed DIABETIC FOOT EXAM [facility] Start: 1954 Hepatitis B screening URINE ALBUMIN:CREATININE RATIO [facility] Start: 1954 Hepatitis C antibody , confirmatory test DILATED RETINAL EXAM [facility] Start: 1950 PNEUMOCOCCAL: 65+ (1 - PCV) PNEUMOCOCCAL: 65+ (1 - PCV) [facility] Immunizations Immunization Date Immunization Notes Care Provider Fa cility 06-05-2022 SARS-CoV-2 mRNA (mwwkdwvfyhs-teuh-fqhke se) vaccine [facility] 08-29-2021 SARS-CoV-2 (COVID-19 ) mRNA BNT-162b2 vax [facility] 08-02-2021 SARS-CoV-2 (COVID-19 ) mRNA BNT-162b2 vax [facility] 07-05-2021 influenza virus vaccine, unspecified formulation [facility] 09-29-2020 influenza, unspecifi ed formulation [facility] 07-24-2020 influenza virus vaccine, unspecified formulation [facility] 09-02-2017 influenza virus vaccine, unspecified formulation [facility] 08-07-2017 pneumococcal conjuga te vaccine, 13 valent [facility] 08-14-2016 influenza virus vaccine, unspecified formulation [facility] 09-29-2015 pneumococcal conjuga te vaccine, 13 valent [facility] 08-04-2015 influenza virus vaccine, unspecified formulation [facility] 09-15-2014 influenza virus vaccine, whole virus Loida Iammarino SURVEILLANCE DUAL RATE OFFICER.[facility] Work Phone: [facility] 09-15-2014 influenza, whole [facility] 11-01-2012 pneumococcal polysaccharide vaccine, 23 valent Loida Iammarino SURVEILLANCE DUAL RATE OFFICER.[facility] Work Phone: [facility] 12-28-2009 novel piokxyhto-[id number], all formulations Loida Iammarino SURVEILLANCE DUAL RATE OFFICER.MELT HOUSE CENTRIFUGAL OPERATOR Work Phone: [facility] Work Phone: 08-19-2009 influenza virus vaccine, unspecified formulation Loida Iammarino SURVEILLANCE DUAL RATE OFFICER.MELT HOUSE CENTRIFUGAL OPERATOR Work Phone: [facility] 09-01-2006 influenza virus vaccine, unspecified formulation Loida Iammarino SURVEILLANCE DUAL RATE OFFICER.MELT HOUSE CENTRIFUGAL OPERATOR Work Phone: [facility] Work Phone: 09-01-2006 pneumococcal polysaccharide vaccine, 23 valent Loida Iammarino SURVEILLANCE DUAL RATE OFFICER.MELT HOUSE CENTRIFUGAL OPERATOR Work Phone: [facility] Work Phone: NEGATED: Highlighted row has not occurred!07-12-2022 influenza virus vaccine, unspecified formulation [facility] Payers Date Payer Category Payer Medicare UHC MEDICARE UHC DUAL COMPLETE HMO SNP [id number] 2022-Present [phone] [address] [place] [address] Medicare [id number] 2022 Medicare UHC MEDICARE UHC DUAL COMPLETE HMO SNP [id number] 2022-Present [phone] [address] [place] [address] Medicare [id number] 2020 Unknown [id number] 1959 Medicaid [id number] 1959 Medicare [id number] 1959 Self-pay [id number] 1959 Unknown [id number] 1944 Unknown [id number] 1944 Unknown [id number] 1944 Unknown [id number] 1944 Unknown [id number] 1944 Unknown [id number] 1944 Unknown [id number] 1944 Unknown [id number] 1944 Unknown [id number] 1945 Unknown [id number] 2.16.840.1.203339.3.579.2.593 1945 Unknown [id number] 2.16.840.1.503381.3.579.2.593 1945 Unknown [id number] 2.16.840.1.357132.3.579.2.593 1944 Unknown [id number] 2.16.840.1.882268.3.579.2.593 1944 Unknown [id number] 2.16.840.1.852180.3.579.2.593 1944 Unknown [id number] 2.16.840.1.783650.3.579.2.593 1944 Unknown [id number] 2.16.840.1.174114.3.579.2.593 1944 Unknown [id number] 2.16.840.1.406981.3.579.2.593 1944 Unknown [id number] 2.16.840.1.604970.3.579.2.593 1944 Unknown [id number] 2.16.840.1.283284.3.579.2.593 1944 Unknown [id number] 2.16.840.1.652729.3.579.2.727 1944 Unknown [id number] 2.16.840.1.380351.3.579.2.727 1944 Unknown [id number] 2.16.840.1.486096.3.579.2.727 1944 Unknown [id number] 2.16.840.1.314153.3.579.2.727 1945 Unknown [id number] 2.16.840.1.824996.3.579.2.727 Unknown [id number] 2.16.840.1.692972.3.579.2.593 Social History Date Type Detail Facility Start: 05-13-2019 Tobacco smoking stat us NHIS Ex-smoker [facility] Work Phone: History of tobacco use Cigarette Smoker [facility] Work Phone: Start: 09-07-2019 Alcohol intake Current non-dr oracle adf developer of alcohol (finding) [facility] Start: 1945 Sex Assigned At Not on file [facility] Start: 07-12-2022 Never smoked t obacco (finding) [facility] Never [facility] Female [facility] History of tobacco use Current smoker [facility] Start: 05-13-2019 Cigarettes smoked current (pack per day) - Reported 0.3 [facility] Start: 05-13-2019 Tobacco use and exposure Smokeless tobacco non-user [facility] Functional Status Date Assessment Result Facility 04-07-2023 Functional Status N/A [facility] Clinical Notes 11-14-2017 to 11-12-2023 Note Date & Type Note Facility 11-12-2023 Note [place] [facility] Subjective Sylvia Herrera is a 77 [...] in 2007. She is followed by the [facility] cardiology service. She has had no [...] Stress Testing (1 (more content not included)... [facility] 10-28-2023 Note [facility] 08-07-2023 Note [place] [facility] Subjective Sylvia Herrera is a 77 [...] in 2007. She is followed by the [facility] cardiology service. She has had no [...] scan. [address] (more content not included)... [facility] 07-23-2023 Note ta [facility] 04-08-2023 Hospital Discharge instructions Patient Education [...] ?Adrenal gland problems. ?Metabolic conditions, such as [place]'s disease or syndrome of inappropriate antidiuresis (SIAD). [...] improvement. Follow these instructions at home: Take xonp-kgp-snvcqab and prescription medicines only as told by [...] provider. Document Revised: 05/29/2022 Document Reviewed: 05/29/2022 [employer] Patient Education 2022 [employer]Control. 04/08/2023 08:56:02 Nonspecific Chest Pain, Adult Nonspecific [...] Follow these instructions at home: Medicines Take sody-dla-jnpagsy and prescription medicines only as told by [...] provider. Document Revised: 02/01/2022 Document Reviewed: 02/01/2022 [employer] Patient Education 2022 [employer]Control. Follow Up Care 04/07/2023 21:19:10 With:DUYEN ROGERS Address: [address] [place] [address]- [phone] Business (1) When:Within 3 Day(s) [facility] 04-07-2023 Evaluation + Plan note Extrac arianna [...] Troponin 9 Hr. XR Chest Single View [facility]03-13-2023 [facility] [facility] - [facility] Subjective Sylvia Herrera is a 77 [...] in 2007. She is followed by the [facility] cardiology service. She has had no [...] Left ventricle is norm (more content not included)...[facility]02-06-2023 [facility] [facility] - [facility] Subjective Sylvia Herrera is a 77 [...] in 2007. She is followed by the [facility] cardiology service. She has had no [...] 6. This is a (more content not included)...[facility] 12-11-2022 [facility] Miscellaneous Notes* Telephone Encounter - Linden Weems - 08/02/2022 1:41 PM EDT Patient had labs drawn 08/02/22, uploaded to scanned docs. documented [facility] encounter[facility] Miscellaneous Notes* Telephone Encounter - Sho Crowley [...] another team. Sho Crowley APRN, ODETTE Pager: [phone] July 05, 2022 10:42 AM Post Heart Transplant Nurse Practitioner documented in this encounterTri[facility] Miscellaneous Notes* Telephone Encounter - Linden Weems - 07/03/2022 12:59 PM EDT Patient had labs drawn 07/03/22, uploaded to scanned docs. documented in this encounterTri[facility]06-07-2022 Miscellaneous Notes* Addendum Note - Loida Mathias [...] uploaded to scanned docs. Linden Weems Administrative Jet Mechanic documented in this encounterTri[facility]05-24-2022 Miscellaneous Notes* Telephone Encounter - Linden Weems - 04/24/2022 1:31 PM EDT Patient left message that she had labs drawn today. Linden Faustina Administrative Jet Mechanic Post Heart Transplant J3-4 documented in this encounterTrihealth [facility]05-11-2022 NoteHNO ID: [id number] Author: Loida Mathias APRN.CNP Service: ? Author [...] reports she can no longer travel to [place]. She does not have a ride, she has no family or friends to lean on. She has made an appt with a local Creative Director. She will ask him if there are any transplant doctors or centers near her and potentially need to transfer her care. She will keep us updated. Loida Mathias APRN.CNP April 12, 2022 2:25 [facility]05-11-2022 History of Present illness Narrative* Loida [...] reports she can no longer travel to [place]. Shedoes not have a ride, she has no family or friends to lean on. She has made an appt with a local Creative Director. She will ask him if there are any transplant doctors or centers near her and potentiallyneed to transfer her care. She will keep us updated. Loida Mathias APRN.CNP April 12, 2022 2:25 PM documented in this encounterTri[facility]11-08-2021 NoteHNO ID: [id number] Author: Loida Mathias APRN.CNP Service: ? Author [...] Loida Mathias APRN.CNP October 09, 2021 4:10 [facility]11-02-2021 NoteHNO ID: [id number] Author: Nicolette Rice MD Service: ? Author Type: Physician Type: Progress Notes Filed: 10/03/2021 4:12 PM Note Text: Heart, Vascular AND Thoracic [facility] TELEPHONE VISIT PROGRESS [...] in ~6 months. Will see a local drug abuse worker at the end of the month. Data Reviewed: No new labs Assessment: She is doing well clinically and her BP is controlled. ? Plan: 1. She was instructed to continue the current medical program. 2. RTC per post-transplant protocol. Total Time Spent: 21-30 minutes Nicolette Rice, [facility] History of Past illness Narrative* Problem [...] of this encounter (statuses as of 04/05/2022) [facility] History of Past illness Narrative* Problem [...] of this encounter (statuses as of 04/06/2022) [facility] History of Past illness Narrative* Problem [...] of this encounter (statuses as of 04/12/2022) [facility] History of Past illness Narrative* Problem [...] of this encounter (statuses as of 04/24/2022) [facility] History of Past illness Narrative* Problem [...] of this encounter (statuses as of 05/08/2022) [facility] History of Past illness Narrative* Problem [...] of this encounter (statuses as of 07/03/2022) [facility] History of Past illness Narrative* Problem [...] of this encounter (statuses as of 07/05/2022) [facility] History of Past illness Narrative* Problem [...] of this encounter (statuses as of 08/02/2022) [facility] History of Past illness Narrative* Problem [...] of this encounter (statuses as of 09/11/2022) [facility] Future Appointments Appointment Date:08/01/2022 01:50:00 PM Scheduled Provider: Location:[facility] Appointment Type:Surgery FT Diagnostic Tests Pending * CMV Antibody IgM 07/16/22 Future Scheduled Tests Laboratory* Fecal WBC Lactoferrin 07/12/22 * Giardia lamblia, Direct Detection EIA 07/12/22 * O & P Exam, Routine 07/12/22 * Clostridium difficile by PCR 07/12/22 * Enteric Panel by PCR [facility]12/22 [facility]) [facility] Diagnosis Heart replaced by transplant (HCC)- Primary Heart replaced by transplant [facility] Diagnosis Heart replaced by transplant (HCC)- Primary Heart replaced by transplant Heart transplanted (HCC) Heart replaced by transplant documented in this encounter [facility] note* Diagnosis Heart transplanted (HCC) Heart replaced by transplant documented in this encounter [facility] note* Diagnosis Heart transplanted (HCC) Heart replaced by transplant [facility] Narrative No data available for this section [facility] Discharge instructions No data available for this section [facility] No data available for this section [facility] Advance Directives No Advanced Directives Records FoundDocuments on File Type Date Recorded Patient Tank Wagon Driver Expl anation Advance Directive(s) 11/14/2017 5:44 AM Advance Directive(s) 01/02/2012 12:00 AM Advance Directive(s) 01/17/2007 12:00 AM Documents on File Type Date Recorded Patient Tank Wagon Driver Expl anation Advance Directive(s) 01/02/2012 Advance Directive(s) [...] or prosecute any alcohol or drug abuse patient.[facility] HospitalIn the event this information is protected by the Federal Confidentiality of Alcohol and Drug Abuse Patient Records regulations: The Federal rules restrict any use of the information to criminally investigate or prosecute any alcohol or drug abuse patient.[facility] HospitalIn the event this information is protected by the Federal Confidentiality of Alcohol and Drug Abuse Patient Records regulations: The Federal rules restrict any use of the information to criminally investigate or prosecute any alcohol or drug abuse patient.[facility] HospitalIn the event this information is protected by the Federal Confidentiality of Alcohol and Drug Abuse Patient Records regulations: The Federal rules restrict any use of the information to criminally investigate or prosecute any alcohol or drug abuse patient.[facility] HospitalIn the event this information is protected by the Federal Confidentiality of Alcohol and Drug Abuse Patient Records regulations: The Federal rules restrict any use of the information to criminally investigate or prosecute any alcohol or drug abuse patient.[facility] HospitalIn the event this information is protected by the Federal Confidentiality of Alcohol and Drug Abuse Patient Records regulations: The Federal rules restrict any use of the information to criminally investigate or prosecute any alcohol or drug abuse patient.[facility] HospitalIn the event this information is protected by the Federal Confidentiality of Alcohol and Drug Abuse Patient Records regulations: The Federal rules restrict any use of the information to criminally investigate or prosecute any alcohol or drug abuse patient.[facility] HospitalIn the event this information is protected by the Federal Confidentiality of Alcohol and Drug Abuse Patient Records regulations: The Federal rules restrict any use of the information to criminally investigate or prosecute any alcohol or drug abuse patient.[facility] HospitalIn the event this information is protected by the Federal Confidentiality of Alcohol and Drug Abuse Patient Records regulations: The Federal rules restrict any use of the information to criminally investigate or prosecute any alcohol or drug abuse patient.[facility] Reason for Visit (unrecogniz ed section and content) Reason Comments Rx Refills Reason Comments Heart Transplant Follow Up Labs Reason Comments Heart Transplant Follow Up Reason Comments Heart Transplant Follow Up labs Reason Comments Heart Transplant Follow Up Lab Meeting Reason Comments Refill Request Care Teams (unrecognized sec tion and content) Brick Wheeler Relationship Specialty Start Date End Date Tao Rooney MD [address] [id number] PCP - General Family Practice 05/13/19 Brick Wheeler Relationship Specialty Start Date End Date Tao Rooney MD [address] [id number] PCP - General Family Practice 05/13/19 Brick Wheeler Relationship Specialty Start Date End Date Tao Rooney MD [address] [id number] PCP - General Family Practice 05/13/19 Brick Wheeler Relationship Specialty Start Date End Date Tao Rooney MD [address] [id number] PCP - General Family Practice 05/13/19 Brick Wheeler Relationship Specialty Start Date End Date Tao Rooney MD [address] [id number] PCP - General Family Practice 05/13/19 Brick Wheeler Relationship Specialty Start Date End Date Tao Rooney MD [address] [id number] PCP - General Family Medicine 05/13/19 INFORMATION SOURCE (unrecogn ized section and content) DATE CREATED AUTHOR 09/01/2022 [facility] DATE CREATED AUTHOR AUTHOR'S ORGANIZ ATION 03/09/2023 [facility] DATE CREATED AUTHOR AUTHOR'S ORGANIZ ATION 04/08/2023 Raheem Mcgraw [facility] DATE CREATED AUTHOR AUTHOR'S ORGANIZ ATION 11/14/2023 [facility] FOR RECORDS PERTAINING TO PATIENTS WHO [...] ON THE PRIMARY CLINICAL RECORDS. [facility] [employer] [facility]. provides no warranty or guarantee of the accuracy or completeness of information in this document.
[2023-12-30 17:12] LABS: Anion Gap 15.8; BUN Creatinine Ratio 15.7; Calcium 8.6 mg/dL (8.5-10.1); Carbon Dioxide 22.2 mmol/L (21.0-32.0); Chloride 100 mmol/L (98-107); Estimated GFR (African America 30 (>=60); Estimated GFR (Non-African Ame 24 (>=60); Glucose 234 mg/dL (74-106); Sodium 134 mmol/L (136-145); Troponin I High Sensitivity 11.6 pg/mL (4.0-51.3)
[2023-12-30] MEDS: ONDANSETRON PF 4 MG/2 ML VIAL IV (17:16)
--- NOTE | 2023-12-30 17:24 | ED_ITS ---
HPI - Syncope General Chief Complaint: Syncope Stated Complaint: PASSED OUT 2X TODAY, HEADACHE Time Seen by Provider: 12/30/23 16:18 History of Present Illness HPI narrative: 78-year-old female presents because she passed out. She passed out once two days ago and twice today. The 2nd time she passed out today she hit the back of her head and has a little bit of a headache there as well as some right-sided neck pain. No fever or abdominal pain. No chest pain or shortness breath or pal pitations. She is a heart transplant patient. Related Data Home Medications Medication Instructions Recorded Confirmed aspirin 81 mg tablet,delayed 81 mg PO DAILY 06/06/23 08/10/23 release citalopram 20 mg tablet (Celexa) 20 mg PO DAILY 06/06/23 08/10/23 clonazepam 1 mg tablet 1 mg PO DAILY PRN anxiety 06/06/23 08/10/23 [id number] 3 cap PO TID 06/06/23 08/10/23 36,000-114,000-180,000 unit capsule,delay rel (Creon) losartan 50 mg tablet 50 mg PO DAILY 06/06/23 08/10/23 magnesium 250 mg tablet 250 mg PO DAILY 06/06/23 08/10/23 metoprolol tartrate 50 mg tablet 50 mg PO Q12H 06/06/23 08/10/23 mycophenolate mofetil 500 mg tablet 500 mg PO BID 06/06/23 08/10/23 omega-3 fatty acids-fish oil 360 1 cap PO DAILY 06/06/23 08/10/23 mg-1,200 mg capsule (Fish Oil) pramipexole 0.5 mg tablet 0.5 mg PO DAILY 06/06/23 08/10/23 simvastatin 20 mg tablet 20 mg PO DAILY 06/06/23 08/10/23 tacrolimus 0.5 mg capsule, 0.5 mg PO Q12H 06/06/23 08/10/23 immediate-release levothyroxine 112 mcg tablet 112 mcg PO QDAY 06/07/23 08/10/23 buspirone 5 mg tablet 5 mg PO QDAY 08/10/23 08/10/23 doxazosin 2 mg tablet 2 mg PO QDAY 08/10/23 08/10/23 levofloxacin 500 mg tablet 500 mg PO Q24H 08/10/23 08/10/23 Previous Rx's Medication Instructions Recorded ondansetron 4 mg disintegrating 4 mg PO Q6H PRN nausea and 06/08/23 tablet vomiting #14 tabs cephalexin 500 mg capsule 500 mg PO Q12H 7 days #14 caps 08/14/23 doxycycline hyclate 100 mg tablet 100 mg PO BID 7 days #14 tabs 11/27/23 ondansetron 4 mg disintegrating 4 mg PO Q6H PRN nausea and 11/27/23 tablet vomiting #20 tabs oseltamivir 75 mg capsule (Tamiflu) 75 mg PO BID 5 days #10 caps 11/27/23 Allergies Allergy/AdvReac Type Severity Reaction Status Date / Time promethazine [From Phenergan] AdvReac Severe Confusion Verified 06/07/23 14:45 ciprofloxacin [From Cipro] AdvReac Mild HIVES Verified 06/07/23 18:44 Review of Systems ROS Narrative A ten point review of systems is negative except as noted above. [facility] Medical History (Updated 12/30/23 @ 18:00 by Martin Thomson MD) Acute kidney injury ?N17.9 - Acute kidney failure, unspecified (ICD-10) Gastroenteritis ?K52.9 - Noninfective gastroenteritis and colitis, unspecified (ICD-10) Heart transplant recipient ?Z94.1 - Heart transplant status (ICD-10) Heart transplant recipient ?Z94.1 - Heart transplant status (ICD-10) Social History (Updated 06/07/23 @ 22:11 by Lizeth Ho) Within the past year, how often did you have a drink containing alcohol: never Score interpretation: A score less than 3 is consistent with normal alcohol consumption. Smoking status: Never smoker Non-prescribed substance use: denies use Highest level of school completed/degree received: high school graduate Are you now , , , , never or living with a partner: In a typical week, how many times do you talk on the telephone with family, friends, or neighbors: 3 or more times per week How often do you get together with friends or relatives: 3 or more times per week How often do you attend mandaen or jehovah's witness services: 4 or more times per year Do you belong to any clubs or organizations such as mandaen groups unions, [employer] or athletic groups, or school groups: no Total score: 3 Score interpretation: A score of greater than or equal to 2 indicates the lowest level of social isolation. Little interest or pleasure in doing things: not at all Feeling down, depressed, or hopeless: not at all Feel stressed/tense/nervous/anxious/difficulty sleeping: not at all Do you think of yourself as: straight/heterosexual Gender Identity: female Exam Narrative Exam Narrative: Nurses note and vital signs reviewed and patient is not hypoxic. General: The patient appears well and in no apparent distress. Patient is resting comfortably on cart. Skin: Warm, dry, no pallor noted. There is no rash noted. Head: Normocephalic, atraumatic; no hematoma is noted to the scalp; she has some tenderness on the right side of her neck Eye: Normal conjunctiva, no drainage Ears, Nose, Mouth, and Throat: oral mucosa is moist. Nares patent. Cardiovascular: Regular Rate and Rhythm Respiratory: Patient is in no distress, no accessory muscle use, lungs are clear to auscultation, no wheezing, rales or rhonchi Back: non-tender GI: soft and nontender Musculoskeletal: The patient has no evidence of calf tenderness, no pitting edema, symmetrical pulses noted bilaterally Neurological: A&O, normal speech Psychiatric: Cooperative Constitutional Vital Signs, click to edit/add: Last Vital Signs Temp 98.6 F 12/30/23 16:23 Pulse 82 12/30/23 16:23 Resp 20 12/30/23 16:23 BP 171/95 H 12/30/23 16:26 Pulse Ox 97 12/30/23 16:23 O2 Del Method Room Air 12/30/23 16:23 Course Vital Signs Vital signs: Vital Signs Temperature 98.6 F 12/30/23 16:23 Pulse Rate 82 12/30/23 16:23 Respiratory Rate 20 12/30/23 16:23 Pulse Oximetry 97 12/30/23 16:23 Oxygen Delivery Method Room Air 12/30/23 16:23 Temperature 98.6 F 12/30/23 16:23 Pulse Rate 82 12/30/23 16:23 Respiratory Rate 20 12/30/23 16:23 Blood Pressure 171/95 H 12/30/23 16:26 Pulse Oximetry 97 12/30/23 16:23 Oxygen Delivery Method Room Air 12/30/23 16:23 MDM - Syncope MDM Narrative Medical decision making narrative: the patient has had three episodes of syncope in two days. Her workup thus far is negative and she is being admitted for observation. Her creatinine is slightly above baseline and she's being given IV fluids. Findings are discussed with the patient. Differential Diagnosis Differential diagnosis: Likely syncope due to orthostatic hypotension, vasovagal syncope, subarachnoid hemorrhage and dehydration Lab Data Attestation: I reviewed the patient's lab results. Labs: Lab Results 12/30/23 Range/Units 16:45 WBC 7.7 (4.0-11.0) 10^3/uL RBC 4.41 (4.20-5.40) 10^6/uL Hgb 12.8 (12.0-16.0) g/dL Hct 38.9 (36.0-48.0) % MCV 88.2 (81.0-99.0) fL MCH 29.0 (26.7-34.0) pg MCHC 32.9 (29.9-35.2) g/dL RDW 12.7 (11.0-15.0) % Plt Count 170 (150-450) 10^3/uL MPV 9.8 (9.5-13.5) fL Neut % (Auto) 76.9 H (43.0-75.0) % Lymph % (Auto) 12.4 L (20.5-60.0) % [place] % (Auto) 8.7 (1.7-12.0) % Eos % (Auto) 1.6 (0.9-7.0) % Baso % (Auto) 0.1 L (0.2-2.0) % Neut # (Auto) 5.9 (1.4-6.5) 10^3/uL Lymph # (Auto) 1.0 L (1.2-3.8) 10^3/uL [place] # (Auto) 0.7 (0.3-0.8) 10^3/uL Eos # (Auto) 0.1 (0.0-0.7) 10^3/uL Baso # (Auto) 0.0 (0.0-0.1) 10^3/uL Abs Immat Gran (auto) 0.02 (0.00-0.03) 10^3/uL Imm/Tot Granulo (auto) 0.3 (0.0-0.5) % Sodium 134 L (136-145) mmol/L Potassium 4.0 (3.5-5.1) mmol/L Chloride 100 (98-107) mmol/L Carbon Dioxide 22.2 (21.0-32.0) mmol/L Anion Gap 15.8 BUN 31.0 H (7.0-18.0) mg/dL Creatinine 1.97 H (0.55-1.02) mg/dL Est GFR ( Amer) 30 L (>=60) Est GFR (Non-Af Amer) 24 L (>=60) BUN/Creatinine Ratio 15.7 Glucose 234 H (74-106) mg/dL Calcium 8.6 (8.5-10.1) mg/dL Troponin I High Sens 11.6 (4.0-51.3) pg/mL Imaging Data CT scan - head: Radiologist's impression: ITS Impressions Cervical Spine CT 12/30/23 16:32 IMPRESSION: No acute intracranial process is identified. No acute fracture. Multiple thyroid nodules up to 7 mm. Given the age of the patient and size of the nodule, no further follow-up is recommended per [employer]. Electronically authenticated by: [employer] Date: 12/30/2023 17:33 Chest X-Ray 12/30/23 16:32 IMPRESSION: No acute cardiopulmonary abnormality. Electronically authenticated by: ALEXANDER BELLO Date: 12/30/2023 17:[address] 12/30/23 16:32 IMPRESSION: No acute intracranial process is identified. No acute fracture. Multiple thyroid nodules up to 7 mm. Given the age of the patient and size of the nodule, no further follow-up is recommended per [employer]. Electronically authenticated by: [employer] Date: 12/30/2023 17:33 ECG Data Attestation: I personally reviewed and interpreted this ECG as follows: (EKG on my interpretation shows sinus rhythm with no acute changes and a rate of 76.) Discharge Plan Discharge Chief Complaint: Syncope Clinical Impression: Syncope Patient Disposition: Admitted as Observation Time of Disposition Decision: 18:00 Condition: Good Prescriptions / Home Meds: No Action levothyroxine 112 mcg tablet 112 mcg PO QDAY ondansetron 4 mg tablet,disintegrating 4 mg PO Q6H PRN (Reason: nausea and vomiting) Qty: 14 0RF buspirone 5 mg tablet 5 mg PO QDAY doxazosin 2 mg tablet 2 mg PO QDAY levofloxacin 500 mg tablet 500 mg PO Q24H oseltamivir [Tamiflu] 75 mg capsule 75 mg PO BID 5 Days Qty: 10 0RF doxycycline hyclate 100 mg tablet 100 mg PO BID 7 Days Qty: 14 0RF ondansetron 4 mg tablet,disintegrating 4 mg PO Q6H PRN (Reason: nausea and vomiting) Qty: 20 0RF citalopram [Celexa] 20 mg tablet 20 mg PO DAILY metoprolol tartrate 50 mg tablet 50 mg PO Q12H losartan 50 mg tablet 50 mg PO DAILY pramipexole 0.5 mg tablet 0.5 mg PO DAILY aspirin 81 mg tablet,delayed release (DR/EC) 81 mg PO DAILY mycophenolate mofetil 500 mg tablet 500 mg PO BID tacrolimus 0.5 mg capsule 0.5 mg PO Q12H clonazepam 1 mg tablet 1 mg PO DAILY PRN (Reason: anxiety) simvastatin 20 mg tablet 20 mg PO DAILY Creon 36,000-114,000- 180,000 unit capsule,delayed release(DR/EC) 3 cap PO TID Rx Instructions: administer with meals and/or snacks magnesium 250 mg tablet 250 mg PO DAILY omega-3 fatty acids-fish oil [Fish Oil] 360-1,200 mg capsule 1 cap PO DAILY cephalexin 500 mg capsule 500 mg PO Q12H 7 Days Qty: 14 0RF Referrals: Vijay Davis MD [Primary Care Provider] - 1 week
[2023-12-30] MEDS: ACETAMINOPHEN 325 MG TABLET 650 MG PO (17:58)
--- OUTSIDE RECORDS SUMMARY | 2023-12-30 18:21 | XMS_ITS | CCD ---
Author Name Unknown Address [address] [place] [address] Organization [facility] Care Team Providers Care Glove Sewer Name Role Phone Tao Rooney MD Primary [...] TORIBIO ., DR BURGER Primary Care Unavailable AMY Sanchez, NANCY Admitting Unavailable JAZLYN DUBOSE Consulting Unavailable AMY Sanchez, NANCY Consulting Unavailable CAMERON NESLON Consulting Unavaila karen Sanchez, DR BURGER Primary [...] Unavailable HOY ., DR BURGER Attending Unavailable [place], DR JAZLYN Marcelino Consulting Unavailable DUYEN ROGERS [...] INOPHEN] Drug Allergy 05-18-[address] [facility] Work Phone: (11 sources) Promethazine; Translations: [PROMETHAZINE HCL] Drug Allergy 10-11-20 05 Other: See Comments [facility] (3 sources) Levamisole; Translations: [Phenergan] Drug Allergy 04-07-20 13 [facility] Repository (1 source) Morphine Drug Allergy [facility] Repository (1 source) No Known Medication Allergies; Translations: [No Known Medication Allergies] Propensity to adverse reactions (disorder) [facility] Repository (2 sources) Promethazine; Translations: [promethazine] Drug Allergy 08-12-20 22 Loss of consciousness (finding) [facility] Medications Current Medications Medication Drug Class(es) Dates [...] 04-08-2023 Episodic Other aftercare (1 source) Other penitentiary (current) drug therapy; Translations: [OTH CAFETERIA WORKER CURRENT DRUG THERAPY] Onset: 02-18-2023 Episodic Other [...] group home (current) use of aspirin; Translations: [SKILLED NURSING CURRENT USE OF ASPIRIN] Onset: 08-08-2022 Episodic [...] Range Facility Office Visiton 11-12-2023 Follow-up visit [id number] Sylvia Herrera 1945 F Date Provider Department Center 11/12/2023 [facility] Family history unknown: Yes Level of Service:41845 [place] OFFICE/OUTPATIENT ESTABLISHED MOD MDM 30-39 MIN Normal [facility] 36on 10-26-2023 36 Her tacrolimus level from 10/16/2023 was 1.4. still very low. I believe she is currently taking tacrolimus (Prograf) 0.5 mg bid. I want her to increase to 1 mg bid and obtain another trough level in 2-3 weeks. Normal [facility] Telephoneon 10-26-2023 Telephone [id number] Sylvia Herrera 1945 Date Provider Department Center 10/26/2023 ANISHA JACOBS JULIAN Singhevdolores Hernandez Family History Family history unknown: Yes [facility] Orders Onlyon 09-30-2023 Orders Only [id number] Sylvia Hrerera 1945 Date Provider Department Center 09/30/2023 Paresh8-SHELBI TURNER JULIAN Katie [facility] Family History Family history unknown: Yes [facility] 36on 08-15-2023 36 Her Tacrolimus troug h level (taken on 08/06/2023, reported 08/14/2023) was low at 1.4. She is currently taking tacrolimus 0.5 mg once a day. Please have her increase it to 0.5 mg twice a day and have a repeat Tacrolimus trough level in 2 weeks. Her target level is around 5-10 ng/ml. [facility] Telephoneon 08-15-2023 Telephone [id number] Sylvia Herrera 1945 Date Provider Department Center 08/15/2023 ANISHA JACOBS JULIAN [facility] Family History Family history unknown: Yes [facility] Office Visiton 08-07-2023 Follow-up visit [id number] Sylvia Herrera 1945 Date Provider Department Center 08/07/2023 ANISHA JACOBS JULIAN Hernandez Family History Family history unknown: Yes Level of Service:96031 [place] OFFICE/OUTPATIENT ESTABLISHED MOD MDM 30-39 MIN Reason for Visit and Comments: Follow-up [341594] - 6 mo f/u no stress test or tacrolimus result as of 08/06 - does she plan on having stress test? [facility] BMPon 04-08-2023 Creatinine [Mass/Vol] 1.3 mg/dL Normal 0.5-1.3 [facility] Comment on above: Performed By: #### 1 [id number], [id number], [id number] ####[facility] [address] [place] [address] Urea nitrogen [Mass/Vol] 36 mg/dL High 5-21 [facility] Comment on above: Performed By: #### 1 4319494, 4730408, 82927123 ####[facility] [address] [place] [address] Urea nitrogen/Creatinine [Mass ratio] 28 No Units High 10-20 [facility] Comment on above: Performed By: #### 1 3023900, 1630129, 49425098 ####[facility] [address] [place] [address] Anion gap [Moles/Vol] 11 mmol/L Normal 6-16 [facility] Comment on above: Performed By: #### 1 3761385, 4821735, 56078991 ####[facility] [address] [facility] [place] [address] Calcium [Mass/Vol] 8.6 mg/dL Low 8.9-11.1 [facility] Comment on above: Performed By: #### 1 9809292, 2524530, 00860373 ####[facility] [address] [place] [address] Chloride [Moles/Vol] 99 mmol/L Low 101-111 [facility] Comment on above: Performed By: #### 1 6684259, 3381330, [id number] ####[facility] [address] [facility] [place] [address] CO2 [Moles/Vol] 25 mmol/L Normal 21-31 [facility] Comment on above: Performed By: #### 1 0489187, 8658799, 36519287 ####[facility] [address] [place] [address] Glucose [Mass/Vol] 124 mg/dL Normal 55-199 [facility] Comment on above: Result Comment: If t his glucose result represents a fasting glucose, interpretation should refer to the following reference range: 55-99 mg/dL Performed By: #### 1 5768791, 2105357, [id number] ####[facility] [address] [place] [address] Potassium [Moles/Vol] 4.1 mmol/L Normal 3.5-5.3 [facility] Comment on above: Performed By: #### 1 2412973, 9870412, 39012579 ####[facility] [address] [place] [address] Sodium [Moles/Vol] 131 mmol/L Low 135-145 [facility] Comment on above: Performed By: #### 1 5124430, 9738408, 83486254 ####[facility] [address] [place] [address] CHEMISTRYOrdered By: SYSTEM SYSTEM on 04-08-2023 Anion gap [Moles/Vol] 11 mmol/L Normal 6 - 16 mEq/L F [facility] Remisol Calcium [Mass/Vol] 8.6 mg/dL Low 8.9 - 11. 1 mg/dL FT Remisol Chloride [Moles/Vol] 99 mmol/L Low 101 - 1 11 mmol/L FT [facility] CO2 [Moles/Vol] 25 mmol/L Normal 21 - 31 mmol/L FT [facility] Creatinine [Mass/Vol] 1.3 mg/dL Normal 0.5 - 1.3 mg/dL [facility] Remisol GFR/1.73 sq M.predicted among non-blacks MDRD (S/P/Bld) [Vol rate/Area] 42 mL/min/1.73 m2 Low >=59mL/min/1 .73 m2 [facility] Chem S Glucose [Mass/Vol] 124 mg/dL Normal [...] 9.70 pg/mL Low 10.10 - 27.10 pg/mL [facility] Remisol Consent for Treatmenton Consent for Treatment [id number] #1.00CD:127 Normal [facility] Discharge Instructionson Discharge Instructions [id number] .00CD:127 Normal [facility] ED Clinical Summaryon 2022 ED Clinical Summary [place] [id number] ED Clinical Summary Person Information Name: SYLVIA HERRERA [facility] Age: 77 Years : 1945 Sex: Female Language: Amharic PCP: DUYEN ROGERS CNP Marital Status: Single [...] 04/08/2023 08:56:01 04/08/2023 08:56:01 04/08/2023 08:56:01 ADDRESS: [address] [place] [id number] PHYS DOC NOTES: MEDICAL INFORMATION: Prescriptions Given: [...] With: Address: When: DUYEN SUE [address] [place] [address] [phone] Business (1) In 3 days DIAGNOSIS: Chest pain; Hyponatremia Normal [facility] ED Note-Physicianon 04-08-20 ED Note-Physician Basic [...] and Complexity of Problems Differential Diagnosis: [] [facility] Data External documents reviewed: N/A [...] 6 Hr. (more content not included)... Normal [facility] Comment on above: Result Comment: Elec [...] gland problems. ? Metabolic conditions, such as Sawyer's disease or syndrome of inappropriate antidiuresis (SIAD). [...] Follow these instructions at home: ? Take hmkk-krf-qlimwyc and prescription medicines only as told by [...] Reviewed: 05/29/2022 Elsevier Patient Education ? 2022 Navmii. Pulmonary Medicine Nonspecific Chest Pain, Adult Chest [...] health care (more content not included)... Normal [facility] ED Patient Summaryon 023 ED Patient Summary [place] [id number] Patient Discharge Instructions Person Information Name: SYLVIA HERRERA Age: 77 Years Arrival Date: 04/07/2023 21:18:46 Discharge Diagnosis: Chest pain; Hyponatremia Primary Care Physician: DUYEN ROGERS CNP Provider Information Primary Provider: Richard Ca DO Advanced Plug Stitcher:None The exam and treatment you received in the Emergency Department were for an urgent problem and are not intended as complete care. It is important that you follow up with a doctor, nurse practitioner, or physician?s human services assistant for ongoing care. If your symptoms [...] With: Address: When: DUYEN ROGERS [address] [place] [address] [phone] Business (1) In 3 days In the event that this physician does not participate in your insurance network, please consult with your insurance company to find a nearby participating provider. Patient Education Materials: Hyponatremia; Nonspecific Chest Pain, Adult A MESSAGE TO ALL PATIENTS REGARDING OPIOIDS PRESCRIPTION OPIOIDS: WHAT YOU NEED TO KNOW Prescription opioids can be used to help relieve qbydlwzn-nt-oonwdb pain and are often prescribed following a [...] be struggling with addiction, tell your health client care manager and ask for guidance or call SAM[employer]?S National Helpline at 8-670-876-LRUO. v Source: [place] Departmen (more content not included)... Normal [facility] EMS Documentationon 04-08-20 EMS Documentation Please click on link to see report [id number] CiX5+prnDQolQUJDcGRmI FUkVvP9GSt3RYPbt0RhCQ x7LGipIFK7AnClFIuaWDH b JKL7JXHcXMvhCz9KLAQ2X lR9Dm3WwM5mABZnxxByUY ESG82eNBkiSsC4Ht8JBAL 6UKa1Jy2+ICAg ICAgICAgICAgICAgICAgI CAgICAgICAgICAgICAgIC AgICAgICAgICAgICAgICA gICAgICAgICAg ICAgICAgICAgICAgICAgI BFfKBLBZvSsFW8kzt2RJJ r3syBiJWt7ISR8YDjvDCX wMDAwMDMyIDAw CXGqRV0ZXoFfKPHhHAM7V TiwJHPiWPHvnx2NKKApST GdUTR3ARGaTWHjZERoPSr wMDAwMDAxODM3 IZXnQWCqGY6LImCvZJVgS AU0ZcskXXKtAJSgos3QLK AwMDAwMjIyOCAwMDAwMCB uDQowMDAwMDAy RmolYXJlMMBiPM4VVoOsW DAwMDIzNTYgMDAwMDAgbg 3JOVPmQOOpZxI2FlOcCJH wMCBuDQowMDAw HTZyMGYfAQBzVPMdFL5EP qLvFQPjBVH3WFnjRNSyTL Vryh8JKMIfAADhBwy9PXY wMDAwMCBuDQow YOXgTZUxXrI8EICqXISjT R8XSbVhZBKwUJM5DTXrGH CaYTXlxp9PTULsQTMxXDO 5NSAwMDAwMCBu QQmqOOFvFXV1MkLrWIOeU LAwSV6BBpAoTNRzNDR5Rk muIYXqYRIeuv8IBMLvCWS zUJk9YHPrOLYa NWDdCLtpQLTuDCM3JtD5H HDkUQQvFU4NAiArLVYxQK R8CarwRJXbJSLpmf1HUQP wMDAwNTgwNSAw KYHeSTTfSWacTOLqDZE7Z YA1MYFtVYEaDE6SSmTwYN ZeQLV3MdknCHFhQKLgqn8 KMDAwMDAwNjc1 MyAwMDAwMCBuDQowMDAwM OM3JWA8FXMxTINzMJ7ECw AwMDAwMDczOTYgMDAwMDA lpl4EZSQqSOCu OTkyMiAwMDAwMCBuDQowM MBtXDQ7AFN4WAUsUFLjHB 7FYqIjDTdjSJLXIph6Ey5 JRCBbPENEMUFD G8ElLLLVEcaTSIW9OQG6J Ar0LBNwCYzcRhU6Tpp5Rx RNCUA1Zkx8GSkYLZW7LMq 0GLIDY8B0DQyP NTZDRTA+RRigYUQywvL2E jX8EbleTj2glRE8ZVFqTw pxX2k5BRDjEdtuB507oxQ lIChXZUpYRnhO LlTcPzX0xGZRXIYNS2F3N 35mB68lXS4XXHrfG8n0Ox yUYRQ0MVkCcNdCPmYrW77 oJYzdWFYiA2Po HknczCieAKY4T9TniFG6C 6cqs82yRONVZIdXe2dgBJ R5R77LFebJTtrVewWEX2e 3wMEQpHT6Elmt M0qeRgVeEABYCCYqRxMlW crGV3OZW3qCCw7tVn3+IC AgICAgICAgICAgICAgICA gICAgICAgICAg ICAgICAgICAgICAgICAgI CAgICAgICAgICAgICAgIC AgICAgICAgICAgICAgICA gICAgICAgICAg ICAgICAgICAgICAgICAgI CAgICAgICAgICAgICAgIC AgICAgICAgICAgICAgICA gICAgICAgICAg ICAgICAgICAgICAgICAgI CAgICAgICAgICAgICAgIC AgICAgICAgICAgICAgICA gICAgICAgICAg ICAgICAgICAgICAgICAgI CAgICAgICAgICAgICAgIC AgICAgICAgICAgICAgICA gICAgICAgICAg ICAgICAgICAgICAgICAgI CAgICAgICAgICAgICAgIC AgICAgICAgICAgICAgICA gICAgICAgICAg ICAgICAgICAgICAgICAgI CAgICAgICAgICAgICAgIC AgICAgICAgICAgICAgICA gICAgICAgICAg ICAgICAgICAgICAgICAgI CAgICAgICAgICAgICAgIC AgICAgICAgICAgICAgICA gICAgICAgICAg YXQIWjI5PIY7tZLkGb2PX G4YYEJKE4YHTl4DCUIsGU 3aih0UENhKX01dbIHjXYQ eYVAuRMOKDc1D wBZdXHM7xS3rUZv4SEBfV sgfApc3DR4FB003eOvprk TtKPAdQRPZHe5OIAlvVN5 kDBMfNZBoSw2r ZQovUGFnZXMgMiAwIFIKL 1X6wICsU0LmgLBac2iQQa 0PBvMeIK8jrd7XZQo8MSJ hw9SmUAu0RAut YapwdODrWI7KuNH1DGKuA 21jJWvfSHDgL7AxIEFtMD qaJhB7Evt+Um3Iz0ZiCGQ vBTp9tOXxISSm YGDLYFBgYLjCAyLhQAEKU vrqLeK6FpFyLCNu1ZUvND Iu42VGQhSlZlGnFPzlZoN iiAOI3VduUcQV YSyd9GiLZnQEUkFQkfK0K SdrGXWEKqxVZYm9XmGiAk mU1FxEgaAa2C7TVWLPXme PYgXzBZP5tbHx vO2SAW2wr3HrLJpYWotiF JFbVwfKJad7Bl9Jh772GC 50cyBbMjQgMCBSXQovTWV jjXHEg5pmErLg BJX4FHQaNmorLRzjHKTqC J02ZSIvHGIWQo4XDQWwiJ CeOUTjVNvFZ0fCAckvA7Y uNYdMZ7kqHoH6 IDggMCBSCj4+Cj4+Ci9Ue GLjYS9KGTqjFv5+DQplbm WzBvwKMc9APCMlJZ3bds2 HYJvJE1BUf6ql LtGcZJK9NQXtPqxqJXifW yyelCNzWA7HjZG2MMXzA2 1sNDhlUCAvA4GtHVx7Wv7 SZXNvdXJjZXMg NNhSP9tRGyqwH5SkIMwTJ 1dvDwQ5RPN4EVIyKno+Pg o+FsnqN6EaaAzvAKWdQl7 ybQovVHlwZSAv SI8adoOqpEx+Dx7Nv2OsT VUyUWa1wSEO3LBi7WKyXJ SuAIG7ZHNpmsOCAFmy7Cw XyOPlMtCztDAz U3uoMNMy37gYWSYpOwkEu 1pmMkGw3VjFTH+BA0FTjk ZrRvUvgu3ANGjlclJugXK vFC3MTiEdRT4t if8JOGn4DCUfs5WxNCg5L FiyJg4vQ79omr1lyVqqC0 EgMQo+Mu9HON6ql7XiYMc NMqIvTNHov9Ya SEv9ETgrYw9uM96mom7nz ZptQ5ZxGZpwGJDcJBjtKL ogMAovTFcgMQovTUwgNAo wZ9FfjYF7NRbs J2JbWQj+Fm3TUF0kn0RxR EnPTuYcJDLck8YvVKi3EM icPc7hI33drh6yfUmbX0Q cKJ9uMfEjIwkq TEMgMAovTEogMAovTFcgM KiqOPeoZGrbB6QcjNC0WX yoR5BdBA8lEiZvIsb+Pg0 FFX2up9TnVUsC GgBhYSFdx3RyOZk4PYzwV j0mF23wwu0jdOxpX6JcUF 4wODIzNQo+Hw6NCI0pv4J qDQoNCjEzIDAg f9UjAQn5CUymEi9uR06rr u1kuRjwR9QfKK8qQVL4MV ovTEMgMAovTEogMAovTFc gMQovTUwgNAov J3EcfEP6BLliF7GgTZ9mF TA5OAo+Yd6IWJ6cy4HqXI kOYcW4ZZLhi4TsZHp1LWj yHEE0mjv8UPsi Som4BHGbUMLxNM43HFDtA Xd4Av2RX2MbmVBgvu8VeQ YrKPVQF6UgUYOcoywfQCr HX3VxdY7nZ2Lt K1YuH9SgdtzmIVFJRjcoU 54zzfGhBGwuNZY5OUZyJV P0CB0DW2H9eCWbABMteVC 4QOm9tzPuJAey UoAqA2Ubj14qMCbIS0DqX TzjPhp1XvQnRjx1VxPcOa u6J46LX5TvLFwkMvz9HzR rSen7SzZcArh4 W84BN0KhqYWkwxSiAJPgD LghHhImG6Kro48DqVHyGK QVU60xQRk+FvdtT6kwWDw gR4S9sQVrLvd+ HlqrXQepJZEiGUB2wLGxb go+Me0EDQ9od8KtVHnXIh L5FQBfm2ToVKq4JQtmHWT 4orx4DZjjMeo8 DVFgHMBuZT30YLBhDJh7M y3ZF1ReyATgpm5JlASzUM KYP7QnTLJiygddIXqOV8L ymV2bC9YdX7Uf Z6UvnctoEJQUZwbwU80gg uCwLTf8GSO0SsG5JHM4Qa 23Mt0SD8I7qKIkWCZilBL 2HMx1kuZsOVoe QcVnP9Zfn83pMHpCW5Lsg E2frcOcLQ22AEeqWC0hAS rcDOxyYTYlFe5YbkSpLKM gWzAgMSAwIDFd Ym4QcJ1ifDafgvS1nKAbR qwdVfLaZ1Zky34zEGo2ON biBuBcBfVpFKR4MSVcYVV 2IHXiFWT4WZij MvFcFeAhWML5MSOrNWV8V GGzQRN5LQoiBL7xSEduEY qaXCEeAk3QxC7mpXzetvD 5cGUgMgovTiAx Cj4+Mpj5Ow6HIXLjNL61U eilRE87FrhuSV96HzyzOd 8MBNIhHH82JiGxHR32BpE rDT00ScLhHp1W w77ezW6eUwVnJR7AR3P4o nN6yA7uSDnkPVIqYk3OLO FDBf8kIc8+Dj5YmAKylJ8 nVHlwZSAyCj4+ Mu1AxAZiXU3PVLH0DLKgE j4+RQjvepFqEodDEc1HVW KbVFHpZttSQuf5Cw8RKZC bNw2stGThDQeH WD5OI7EjU02yOVvHH3Ykj 2GuxlIdyrZDv442aiKrZM rwNTXHNGdcGJ1fn8Tqgsx rH4fwRF11aCK9 JKwKM6B0GaG7aPSiX4W6d BWhAw8Ob8RzuSDrUGYdHC lgZVFOEx7XtPVsEE1Wa10 0Cj4+DQplbmRv ElbOMk7SSZdoATSyXesFS aq7Dy9QBYQjEp0xlMVfVM kEDR3WU9WrY76bIDcAP6N NPPG9s1VvfHiw Rh1yKUgZE66vTDKuvU3hR YdGZCBnhGr0gEePL3JwU9 nomXK4GWqOKC4o (more content not included)... Normal [facility] EMS Documentation Please click on link to see report Normal [facility] Comment on above: Result Comment: Miss ing Attachment - attachment exceeds size limitation [id number] Can be viewed in source system EMS Documentation [id number]# 1.00CD:127 Normal [facility] Monitor Recordon 04-08-2023 Monitor Record [id number]# 1.00CD:127 Normal [facility] Progress Note-Nurseon 2022 Progress Note-Nurse Pt. requesting food, Dr. Ca aware. Pt. given food per verbal order from Dr. Ca. Normal [facility] Troponin 0 Hr.on 04-08-2023 Troponin I.cardiac [Mass/Vol] 9.20 pg/mL Low 10.10-27.10 [facility] Comment on above: Result Comment: The 95% CI (Confidence Interval) PPV (Positive Predictive Value) for myocardial infarction in females is 38 pg/mL, in males 51 pg/mL. The results should be used in conjunction with clinical conditions of myocardial infarction. (Access High Sensitivity Troponin I Instructions For Use, SHIFT, July 2018) Performed By: #### 2 380585, 78444842, 7477948, 8848163, 59390923, 61522533 ####[facility] [address] [place] [address] Troponin 3 Hr.on 04-08-2023 Troponin I.cardiac [Mass/Vol] 9.70 pg/mL Low 10.10-27.10 [facility] Comment on above: Result Comment: The 95% CI (Confidence Interval) PPV (Positive Predictive Value) for myocardial infarction in females is 38 pg/mL, in males 51 pg/mL. The results should be used in conjunction with clinical conditions of myocardial infarction. (Access High Sensitivity Troponin I Instructions For Use, SHIFT, July 2018) Performed By: #### 1 [id number] ####[facility] [address] [place] [address] Troponin 6 Hr.on 04-08-2023 Troponin I.cardiac [Mass/Vol] 11.10 pg/mL Normal 10.10-27.10 [facility] Comment on above: Result Comment: The 95% CI (Confidence Interval) PPV (Positive Predictive Value) for myocardial infarction in females is 38 pg/mL, in males 51 pg/mL. The results should be used in conjunction with clinical conditions of myocardial infarction. (Access High Sensitivity Troponin I Instructions For Use, SHIFT, July 2018) Performed By: #### 1 2366462, 1508211, [id number] ####[facility] [address] [place] [address] XR Chest Single Viewon 04-08 XR Chest [...] mGy = na DAP = na [facility] eGFRon 04-08-2023 GFR/1.73 sq M.predicted among non-blacks MDRD (S/P/Bld) [Vol rate/Area] 42 mL/min/1.73 m2 Low >=59 [facility] Comment on above: Order Comment: Order added by Discern Expert. Result Comment: Hand Polisher brennan kidney disease could be indicated at eGFR's of less than 60 mL/min/1.73m2. Kidney failure is indicated at less than 15 mL/min/1.73m2. Performed By: #### 1 7720923, 4633073, 67458673 ####[facility] [address] [place] [address] Auto Diffon 04-07-2023 Basophils/100 WBC (Bld) 0.4 % Normal 0.0-2.0 [facility] Comment on above: Order Comment: Order Added by Discern Expert. Performed By: #### 2 765161, 64689773, 8109641, 4192728, 02772818, 88422797 ####[facility] [address] [place] [address] Basophils/Leukocytes Auto (Bld) [Pure # fraction] 0.0 E9/L Normal 0.0-0.2 [facility] Comment on above: Order Comment: Order Added by Discern Expert. Performed By: #### 2 229985, 35896209, 7581016, 8217905, 02573132, 26640576 ####[facility] [address] [place] [address] Eosinophils/100 WBC (Bld) 3.0 % Normal 0.0-8.0 [facility] Comment on above: Order Comment: Order Added by Discern Expert. Performed By: #### 2 873937, 24358381, 3618938, 3222847, 33049486, 30955515 ####[address] [address] Eosinophils/Leukocytes Auto (Bld) [Pure # fraction] 0.2 E9/L Normal 0.0-0.5 [facility] Comment on above: Order Comment: Order Added by Discern Expert. Performed By: #### 2 221199, 15842404, 0303538, 5217866, 03421766, 26611727 ####[address] [address] Lymphocytes/100 WBC (Bld) 15.4 % Normal 14.0-50.0 [facility] Comment on above: Order Comment: Order Added by Discern Expert. Performed By: #### 2 517835, 09150978, 1887994, 7214617, 99302524, 04309528 ####[address] [address] Lymphocytes/Leukocytes Auto (Bld) [Pure # fraction] 1.1 E9/L Normal 1.0-4.0 [facility] Comment on above: Order Comment: Order Added by Discern Expert. Performed By: #### 2 426917, 42612620, 6872575, 2448670, 05620716, 91018228 ####[address] [address] Monocytes/100 WBC (Bld) 12.8 % Normal 4.0-14.0 [facility] Comment on above: Order Comment: Order Added by Discern Expert. Performed By: #### 2 700986, 90924511, 6291837, 1155984, 14236746, 70002563 ####[address] [address] Monocytes/Leukocytes Auto (Bld) [Pure # fraction] 0.9 E9/L Normal 0.2-1.0 [facility] Comment on above: Order Comment: Order Added by Discern Expert. Performed By: #### 2 339153, 54334871, 1847219, 1740878, 93319480, 13660516 ####[facility] [address] [place] [address] Neutrophils/100 WBC (Bld) 68.4 % Normal 36.0-75.0 [facility] Comment on above: Order Comment: Order Added by Discern Expert. Performed By: #### 2 782018, 03013706, 5543441, 2558011, 49631919, 92238260 ####[facility] [address] [place] [address] Neutrophils/Leukocytes Auto (Bld) [Pure # fraction] 5.0 E9/L Normal 2.0-7.5 [facility] Comment on above: Order Comment: Order Added by Discern Expert. Performed By: #### 2 040471, 90021482, 0122868, 2223090, 92321824, 97753135 ####[place] [address] [place] [address] BMP 04-07-2023 Creatinine [Mass/Vol] 1.5 mg/dL High 0.5-1.3 [facility] Comment on above: Performed By: #### 2 361661, 26679896, 3376370, 3656841, 02613331, 97291821 ####[facility] [address] [place] [address] Urea nitrogen [Mass/Vol] 40 mg/dL High 5-21 [facility] Comment on above: Performed By: #### 2 354092, 89932316, 1170389, 9185311, 15381762, 05959050 ####[facility] [address] [place] [address] Urea nitrogen/Creatinine [Mass ratio] 27 No Units High 10-20 [facility] Comment on above: Performed By: #### 2 726800, 76638397, 8118305, 3523418, 19859353, 76987580 ####[facility] [address] [place] [address] Anion gap [Moles/Vol] 11 mmol/L Normal 6-[address] [facility] Comment on above: Performed By: #### 2 397525, 17927019, 7442044, 0052208, 69100833, 06173034 ####[facility] [address] [place] [address] Calcium [Mass/Vol] 8.6 mg/dL Low 8.9-11.1 [facility] Comment on above: Performed By: #### 2 269786, 54890916, 0876689, 9957559, 29996926, 97850150 ####[facility] [address] [place] [address] Chloride [Moles/Vol] 96 mmol/L Low 101-[address] [facility] Comment on above: Performed By: #### 2 304926, 43310778, 8110743, 2491693, 86765019, 69779483 ####[facility] [address] [place] [address] CO2 [Moles/Vol] 24 mmol/L Normal 21-31 [facility] Comment on above: Performed By: #### 2 963674, 32594873, 8511012, 4546338, 43263301, 47637883 ####[facility] [address] [place] [address] Glucose [Mass/Vol] 139 mg/dL Normal 55-199 [facility] Comment on above: Result Comment: If t his glucose result represents a fasting glucose, interpretation should refer to the following reference range: 55-99 mg/dL Performed By: #### 2 569248, 43965310, 6560616, 1587259, 76325220, 08899178 ####[facility] [address] [place] [address] Potassium [Moles/Vol] 4.4 mmol/L Normal 3.5-5.3 [facility] Comment on above: Performed By: #### 2 139418, 09187772, 5846282, 5953327, 90890041, 03261801 ####[facility] [address] [place] [address] Sodium [Moles/Vol] 127 mmol/L Low 135-145 [facility] Comment on above: Performed By: #### 2 479812, 78511664, 2361003, 5580983, 75000260, 79326129 ####[facility] [address] [place] [address] CBC w/ Auto Diffon 3 Erythrocyte distribution width (RBC) [Ratio] 13.0 % Normal 10.9-14.2 [facility] Comment on above: Performed By: #### 2 288097, 23300096, 6032103, 4587313, 02653482, 24355921 ####[facility] [address] [place] [address] Hematocrit (Bld) [Volume fraction] 38.4 % Normal 34.0-46.0 [facility] Comment on above: Performed By: #### 2 474692, 02756938, 9605364, 9801869, 40800507, 33337376 ####[facility] [address] [place] [address] Hemoglobin (Bld) [Mass/Vol] 12.6 g/dL Normal 12.0-16.0 [facility] Comment on above: Performed By: #### 2 454167, 09484582, 0264144, 6510877, 25964825, 98892017 ####[facility] [address] [place] [address] MCH (RBC) [Entitic mass] 27.9 pg Normal 27.0-34.0 [facility] Comment on above: Performed By: #### 2 445464, 13905486, 3841592, 9590946, 25229163, 20136588 ####[facility] [address] [place] [address] MCHC (RBC) [Mass/Vol] 32.7 g/dL Normal 31.4-36.0 [facility] Comment on above: Performed By: #### 2 713630, 05194456, 5485073, 2939326, 84201736, 17851942 ####[address] [address] MCV (RBC) [Entitic vol] 85.3 fL Normal 80.0-100.0 [facility] Comment on above: Performed By: #### 2 773158, 53063462, 1696011, [id number], [id number], [id number] ####[address] [address] Platelet mean volume (Bld) [Entitic vol] 7.3 fL Normal 6.4-10.8 [facility] Comment on above: Performed By: #### 2 [id number], [id number], 4711315, 1251695, [id number], [id number] ####[address] [address] Platelets (Bld) [#/Vol] 167.0 E9/L Normal 150.0-500.0 [facility] Comment on above: Performed By: #### 2 [id number], [id number], 2621665, 6228604, [id number], [id number] ####[address] [address] RBC (Bld) [#/Vol] 4.5 E12/L Normal 4.3-5.9 [facility] Comment on above: Performed By: #### 2 468101, [id number], 2443996, 2574421, 93370116, [id number] ####[address] [address] WBC corrected for nucl RBC Auto (Bld) [#/Vol] 7.3 E9/L Normal 4.0-11.0 [facility] Comment on above: Performed By: #### 2 [id number], [id number], 5520646, 5093185, [id number], [id number] ####[facility] [address] [place] [address] CHEMISTRYOrdered By: SYSTEM SYSTEM on 04-07-2023 Anion gap [Moles/Vol] 11 mmol/L Normal 6 - 16 mEq/L F [facility] Remisol Calcium [Mass/Vol] 8.6 mg/dL Low 8.9 [...] 167.0 E9/L Normal 150.0 - 500.0 E9/L [facility] HemeAutoSS RBC (Bld) [#/Vol] 4.5 E12/L Normal 4.3 - 5.9 E12/L [facility] HemeAutoSS WBC corrected for nucl RBC Auto (Bld) [#/Vol] 7.3 E9/L Normal 4.0 - 11.0 E9/L [facility] HemeAutoSS PT & PTTon 04-07-2023 aPTT Coag (PPP) [Time] 27.1 second(s) Normal 25.1-36.5 [facility] Comment on above: Result Comment: Para [...] the same coagulation reagent and instrumentation as [facility]. Currently there are no coagulation studies available worldwide for children to 14 days, and no normal ranges. Heparin therapeutic range (represented by Anti-Factor Xa activity of 0.2 - 0.4 U/mL) corresponds to PTT of 56.6 - 109.0 sec. Performed By: #### 2 072411, [id number], 2881733, 5613259, 87937629, [id number] ####[facility] [address] [place] [address] INR Coag (PPP) [Relative time] 1.2 {INR} Invalid Interpretation Code [facility] Comment on above: Result Comment: INR results are specifically intended to assess patients stabilized on long-term Anticoagulation therapy suggested INR?s ?Less Intensive Anticoagulation? 2.0 ? 3.0 Conventional Range 3.0 ? 4.5 Performed By: #### 2 299170, [id number], 6107438, 7019381, 63397436, 53524547 ####[facility] [address] [place] [address] PT Coag (PPP) [Time] 12.9 second(s) High 9.4-12.5 [facility] Comment on above: Result Comment: 15 [...] the same coagulation reagent and instrumentation as [facility]. Currently there are no coagulation studies available worldwide for children to 14 days, and no normal ranges. Performed By: #### 2 346370, 83691033, 4923345, 5570278, 28876142, [id number] ####[facility] [address] [place] [address] Pre-Arrival Noteon 3 Pre-Arrival Note Pre-Arrival Summary Name: , [facility] Current Date: 04/07/2023 21:19:11 EDT Gender: Female Date of : Age: 77 Pre-Arrival Type: EMS ETA: 04/07/2023 21:15:00 EDT Primary Care Physician: Presenting Problem: chest pain Pre-Arrival User: Natalia Fischer RN Referring Source: Location: Completion Date/Time: 04/07/2023 21:06:00 [facility] Pre-Hospital Report Form Vital Signs: Pre-Hospital Report: Treatment in Route: Response to Treatment: Misc. Issues: Normal [facility] eGFRon 04-07-2023 GFR/1.73 sq M.predicted among non-blacks MDRD (S/P/Bld) [Vol rate/Area] 35 mL/min/1.73 m2 Low >=59 [facility] Comment on above: Order Comment: Order added by Discern Expert. Result Comment: Hand Polisher brennan kidney disease could be indicated at eGFR's of less than 60 mL/min/1.73m2. Kidney failure is indicated at less than 15 mL/min/1.73m2. Performed By: #### 2 [id number], [id number], 9324909, 4227466, [id number], [id number] ####[facility] [address] [place] [address] Orders Onlyon 03-08-2023 Orders Only [id number] Sylvia Herrera 1945 F Date Provider Department Center 03/08/2023 ANISHA JACOBS [facility] CARD [place] Family History Family history unknown: Yes Normal [facility] INFLUENZA A AND B AGon 03-05 INFLUANEGH SEE BELOW Normal [facility] Comment on above: Result Comment: Nega tive for Flu A protein angiten. Infection due to Flu A cannot be ruled out. Flu A angiten in the sample may be below the detection limit of the test. Performed By: #### E RUR #### [facility] [address] [place] [address] Dr. Hardeep Rivera INFLUBNEGH SEE BELOW Normal [facility] Comment on above: Result Comment: Nega tive for Flu B protein antigen. Infection due to Flu B cannot be ruled out. Flu B antigen in the sample may be below the detection limit of the test. Performed By: #### E RUR #### [facility] [address] [place] [address] Dr. Hardeep Rivera INFLUENZA A AG Negative Normal NEGATIVE SEE COMMENT [facility] Comment on above: Performed By: #### E RUR #### [facility] [address] [place] [address] Dr. Hardeep Rivera INFLUENZA B AG Negative Normal NEGATIVE SEE COMMENT [facility] Comment on above: Performed By: #### E RUR #### [facility] [address] [place] [address] Dr. Hardeep Rivera SYMPTOMATIC COVID-19 ANTIGEN on 03-05-2023 EUA Statement SEE BELOW Normal [facility] Comment on above: Result Comment: [...] revoked sooner. Performed By: #### C VDAGS ####[facility] [address] [place], [place] [address]Dr. Hardeep Rivera SARS-CoV-2 (COVID-19) RNA ULICES+probe Ql (Unsp spec) Positive Abnormal NEGATIVE [facility] Comment on above: Performed By: #### C VDAGS ####[facility] [address] [place], [place] [address]Dr. Hardeep Rivera FK506 (TACROLIMUS) WHOLE BLO ODon 02-28-2023 Tacrolimus (FK506), Blood 5.8 ng/mL Normal 2.0-20.0 [facility] Comment on above: Result Comment: Trou gh (immediately following transplant) 15.0 . Trough (steady state, 2 weeks or more after transplant): 3.0 - 8.0 . Performed by LC-MS/MS technology. Performed By: #### F K506T ####[facility] [address] [place], [place] [address]Dr. Hardeep Rivera CBC AUTO DIFFon 02-14-2023 BASO # 0.0 103/ul Normal 0.0-0.1 [facility] Comment on above: Performed By: #### AKSHAT OLSONICRO #### [facility] [address] [place] [address] Dr. Hardeep Rivera Basophils/100 WBC (Bld) 0.5 % Normal 0.2-2.0 [facility] Comment on above: Performed By: #### Deedee PINON UMICRO #### [facility] [address] [place] [address] Dr. Hardeep Rivera EO # 0.2 103/ul Normal 0.0-0.7 [facility] Comment on above: Performed By: #### Deedee PINON UMICRO #### [facility] [address] [place] [address] Dr. Hardeep Rivera Eosinophils/100 WBC (Bld) 3.5 % Normal 0.9-7.0 [facility] Comment on above: Performed By: #### Deedee PINON UMICRO #### [facility] [address] [place] [address] Dr. Hardeep Rivera Erythrocyte distribution width (RBC) [Ratio] 12.3 % Normal 11.0-15.0 [facility] Comment on above: Performed By: #### Deedee PINON UMICRO #### [facility] [address] [place] [address] Dr. Hardeep Rivera Hematocrit (Bld) [Volume fraction] 38.7 % Normal 36.0-48.0 [facility] Comment on above: Performed By: #### Deedee PINON UMICRO #### [facility] [address] [place] [address] Dr. Hardeep Rivera Hemoglobin (Bld) [Mass/Vol] 12.6 g/dL Normal 12.0-16.0 [facility] Comment on above: Performed By: #### Deedee PINON UMICRO #### [facility] [address] [place] [address] Dr. Hardeep Rivera IG # 0.03 10e3/ul Normal 0.00-0.03 [facility] Comment on above: Performed By: #### AKSHAT OLSONICRO #### [facility] [address] [place] [address] Dr. Hardeep Rivera IG % 0.5 % Normal 0.0-0.5 [facility] Comment on above: Performed By: #### HARI OLSONRO #### [facility] [address] [place] [address] Dr. Hardeep Rivera LYMPH # 0.8 103/ul Critically low 1.2-3.8 [facility] Comment on above: Performed By: #### HARI OLSONRO #### [facility] [address] [place] [address] Dr. Hardeep Rivera Lymphocytes/100 WBC (Bld) 13.2 % Critically low 20.5-60.0 [facility] Comment on above: Performed By: #### HARI OLSONRO #### [facility] [address] [place] [address] Dr. Hardeep Rivera MANUAL DIFF REQ NO Normal [facility] Comment on above: Performed By: #### HARI OLSONRO #### [facility] [address] [place] [address] Dr. Hardeep Rivera MCH (RBC) [Entitic mass] 28.3 pg Normal 26.7-34.0 [facility] Comment on above: Performed By: #### HARI OLSONRO #### [facility] [address] [place] [address] Dr. Hardeep Rivera MCHC (RBC) [Mass/Vol] 32.6 g/dL Normal 29.9-35.2 [facility] Comment on above: Performed By: #### HARI OLSONRO #### [facility] [address] [place] [address] Dr. Hardeep Rivera MCV (RBC) [Entitic vol] 87.0 fL Normal 81.0-99.0 [facility] Comment on above: Performed By: #### HARI OLSONRO #### [facility] [address] [place] [address] Dr. Hardeep Rivera MONO # 0.8 103/ul Normal 0.3-0.8 [facility] Comment on above: Performed By: #### HARI OLSONRO #### [facility] [address] [place] [address] Dr. Hardeep Rivera Monocytes/100 WBC (Bld) 12.9 % Critically high 1.7-12.0 [facility] Comment on above: Performed By: #### AKSHAT OLSONICRO #### [facility] [address] [place] [address] Dr. Hardeep Rivera NEUT # 4.4 103/ul Normal 1.4-6.5 [facility] Comment on above: Performed By: #### AKSHAT OLSONICRO #### [facility] [address] [place] [address] Dr. Hardeep Rivera Neutrophils/100 WBC (Bld) 69.4 % Normal 43.0-75.0 [facility] Comment on above: Performed By: #### Deedee PINON ICRO #### [facility] [address] [place] [address] Dr. Hardeep Rivera Platelet mean volume (Bld) [Entitic vol] 9.0 fL Critically low 9.5-13.5 [facility] Comment on above: Performed By: #### AKSHAT OLSONICRO #### [facility] [address] [place] [address] Dr. Hardeep Rivera PLT 205 103/ul Normal 150-450 [facility] Comment on above: Performed By: #### AKSHAT OLSONICRO #### [facility] [address] [place] [address] Dr. Hardeep Rivera RBC 4.45 106/ul Normal 4.20-5.40 [facility] Comment on above: Performed By: #### AKSHAT OLSONICRO #### [facility] [address] [place] [address] Dr. Hardeep Rivera WBC 6.3 103/ul Normal 4.0-11.0 [facility] Comment on above: Performed By: #### RANDALL OLSON #### [facility] [address] [place] [address] HEAD WO CONon [...] CAMERON NELSON Date: 2023-02-14 15:46 Normal [facility] ER URINE PROFILEon 3 Bilirubin Ql (U) Negative Normal NEGATIVE [facility] Comment on above: Performed By: #### RANDALL OLSON #### [facility] [address] [place] [address] Dr. Hardeep Rivera Clarity (U) CLEAR Normal CLEAR [facility] Comment on above: Performed By: #### RANDALL OLSON #### [facility] [address] [place] [address] Dr. Hardeep Rivrea Color (U) LT. YELLOW Normal YELLOW [facility] Comment on above: Performed By: #### RANDALL OLSON #### [facility] [address] [place] [address] Dr. Hardeep FRANCIS A micrscopic examination will be performed if indicated. Normal [facility] Comment on above: Performed By: #### Deedee PINON UMICRO #### [facility] [address] [place] [address] Dr. Hardeep Rivera Glucose Ql (U) Negative Normal NEGATIVE [facility] Comment on above: Performed By: #### Deedee PINON UMICRO #### [facility] [address] [address] [address] Hardeep Rivera Hemoglobin Ql (U) TRACE-INTACT Abnormal NEGATIVE [facility] Comment on above: Performed By: #### Deedee PINON UMICRO #### [facility] [address] [place] [address] Dr. Hardeep Rivera Ketones Ql (U) Negative Normal NEGATIVE [facility] Comment on above: Performed By: #### Deedee PINON UMICRO #### [facility] [address] [place] [address] Dr. Hardeep Rivera LEUKOCYTES Negative Normal NEGATIVE [facility] Comment on above: Performed By: #### Deedee PNION UMICRO #### [facility] [address] [place] [address] Dr. Hardeep Rivera Nitrite Ql (U) Negative Normal NEGATIVE [facility] Comment on above: Performed By: #### Deedee PINON UMICRO #### [facility] [address] [place] [address] Dr. Hardeep Rivera pH (U) 7.0 [pH] Normal 5-9 [facility] Comment on above: Performed By: #### Deedee PINON UMICRO #### [facility] [address] [place] [address] Dr. Hardeep Rivera Protein (U) [Mass/Vol] 30 mg/dL Abnormal NEGAT PEARL/ TRACE [facility] Comment on above: Performed By: #### Deedee PINON UMICRO #### [facility] [address] [place] [address] Dr. Hardeep Rivera SPEC GRAVITY 1.010 Normal 1.005-<=1.02 5 [facility] Comment on above: Performed By: #### HARI OLSONRO #### [facility] [address] [address] [address] Hardeep Rivera UR MICRO IND INDICATED Normal [facility] Comment on above: Performed By: #### HARI OLSONRO #### [facility] [address] [address] [address] Hardeep Rivera Urobilinogen Qn (U) 0.2 {Kevon'U}/dL Normal 0.2 - 1. 0 [facility] Comment on above: Performed By: #### HARI OLSONRO #### [facility] [address] [address] [address] Hardeep Rivera PROF 14(COMP METB)on 023 Albumin [Mass/Vol] 3.5 g/dL Normal 3.4-5.0 [facility] Comment on above: Performed By: #### H STROPN, CMP, TSH ####[facility] [address] [address]Dr. Hardeep Rivera Albumin/Globulin [Mass ratio] 1.2 {ratio} Normal [facility] Comment on above: Performed By: #### H STROPN, CMP, TSH ####[facility] [address] [address]Dr. Hardeep Rivera ALP [Catalytic activity/Vol] 153 U/L Critically high 46-116 [facility] Comment on above: Performed By: #### H STROPN, CMP, TSH ####[facility] [address] [address]Dr. Hardeep Rivera ALT [Catalytic activity/Vol] 21 U/L Normal 14-59 [facility] Comment on above: Performed By: #### H STROPN, CMP, TSH ####[facility] [address] [address]Dr. Hardeep Rivera Anion gap [Moles/Vol] 9.3 mmol/L Normal [facility] Comment on above: Performed By: #### H STROPN, CMP, TSH ####[facility] [address] [address]Dr. Hardeep Rivera AST [Catalytic activity/Vol] 23 U/L Normal 15-37 [facility] Comment on above: Performed By: #### H STRONATHANIEL, CMP, TSH ####[facility] [address] [address]Dr. Hardeep Rivera Bilirubin [Mass/Vol] 0.6 mg/dL Normal 0.2-1.0 [facility] Comment on above: Performed By: #### H STROPN, CMP, TSH ####[facility] [address] [address]Dr. Hardeep Rivera Calcium [Mass/Vol] 8.4 mg/dL Critically low 8.5-10.1 [facility] Comment on above: Performed By: #### H STROPN, CMP, TSH ####[facility] [address] [address]Dr. Hardeep Rivera Chloride [Moles/Vol] 96 mmol/L Critically low 98-107 [facility] Comment on above: Performed By: #### H STROPN, CMP, TSH ####[facility] [address] [address]Dr. Hardeep Rivera CO2 [Moles/Vol] 29.3 mmol/L Normal 21.0-32.0 [facility] Comment on above: Performed By: #### H STROPN, CMP, TSH ####[facility] [address] [address]Dr. Hardeep Rivera Creatinine [Mass/Vol] 1.16 mg/dL Critically high 0.55-1.02 [facility] Comment on above: Performed By: #### H STROPN, CMP, TSH ####[facility] [address] [address]Dr. Hardeep Rivera EGFR-AF SLOVENIAN 55 mL/min/1.73m2 Critically low >=60 [facility] Comment on above: Performed By: #### H STROPN, CMP, TSH ####[facility] [address] [address]Dr. Hardeep Rivera EGFR-NON AF SLOVENIAN 45 mL/min/1.73m2 Critically low >=60 [facility] Comment on above: Performed By: #### H TYLER CMP, TSH ####[facility] [address] [address]Dr. Hardeep Rivera Globulin (S) [Mass/Vol] 2.9 g/dL Normal [facility] Comment on above: Performed By: #### H STRONATHANIEL CMP, TSH ####[facility] [address] [address]Dr. Hardeep Rivera Glucose [Mass/Vol] 105 mg/dL Normal 74-106 [facility] Comment on above: Performed By: #### H TYLER CMP, TSH ####[facility] [address] [address]Dr. Hardeep Rivera Potassium [Moles/Vol] 4.6 mmol/L Normal 3.5-5.1 [facility] Comment on above: Performed By: #### H TYLER CMP, TSH ####[facility] [address] [address]Dr. Hardeep Rivera Protein [Mass/Vol] 6.4 g/dL Normal 6.4-8.2 [facility] Comment on above: Performed By: #### H TYLER CMP, TSH ####[facility] [address] [address]Dr. Hardeep Rivera Sodium [Moles/Vol] 130 mmol/L Critically low 136-145 [facility] Comment on above: Performed By: #### H STRONATHANIEL, CMP, TSH ####[facility] [address] [address]Dr. Hardeep Rivera Urea nitrogen [Mass/Vol] 27.0 mg/dL Critically high 7.0-18.0 [facility] Comment on above: Performed By: #### H STROPN CMP, TSH ####[facility] [address] [address]Dr. Hardeep Rivera Urea nitrogen/Creatinine [Mass ratio] 23.3 mg/mg Normal [facility] Comment on above: Performed By: #### H STROPN, CMP, TSH ####[facility] [address] [address]Dr. Hardeep Rivera PROTIMEon 02-14-2023 INR Coag (PPP) [Relative time] 1.07 {INR} Normal [facility] Comment on above: Performed By: #### P T, PTT ####[facility] [address] [address]Dr. Hardeep Rivera INR GUIDELINES SEE BELOW Normal [facility] Comment on above: Result Comment: EDMUND RED INR: 2.0 - 3.0 CONDITIONS NOT LISTED BELOW 2.5 - 3.5 FOR PROSTHETIC HEART VALVE REPLACEMENT 2.5 - 3.5 RECURRENT THROMBOSIS Performed By: #### P T, PTT ####[facility] [address] [address]Dr. Hardeep Rivera PT Coag (PPP) [Time] 11.3 s Normal 9.0-11.6 [facility] Comment on above: Performed By: #### P T, PTT ####[facility] [address] [address]Dr. Hardeep Rivera PTTon 02-14-2023 aPTT Coag (Bld) [Time] 29.1 s Normal 22.3-36.2 [facility] Comment on above: Performed By: #### P T, PTT ####[facility] [address] [address]Dr. Hardeep Rivera TROPONIN, HIGH SENSITIVITYon 02-14-2023 HSTROP 10.4 pg/mL Normal 4.0-51.3 [facility] Comment on above: Result Comment: CUT- OFF POINTS HAVE BEEN ESTABLISHED BASED ON THE FOURTH UNIVERSAL DEFINITIONS OF MYOCARDIAL INFARCTION. THE UPPER REFERENCE LIMIT (URL) OF TROPONIN, DEFINED THE 99TH PERCENTILE OF cTnI DISTRIBUTION IN A REFERENCE POPULATION, HAS BEEN CONFIRMED THE DECISION THRESHOLD FOR [place] DIAGNOSIS. Performed By: #### H STROPN, CMP, TSH ####[facility] [address] [address]Dr. Hardeep Rivera TSHon 02-14-2023 TSH 1.237 uIU/mL Normal 0.358-3.740 [facility] Comment on above: Performed By: #### H STROPN, CMP, TSH ####[facility] [address] [address]Dr. Hardeep Rivera URINE MICROSCOPIC ONLYon BACTERIA NONE SEEN Normal NONE SEEN [facility] Comment on above: Performed By: #### E RUR, UMICRO #### [facility] [address] [address] [address] Hardeep Rivera Bacteria identified Cx Nom (U) NOT INDICATED Normal [facility] Comment on above: Performed By: #### E RUR, UMICRO #### [facility] [address] [address] [address] Hardeep Rivera CAST NONE SEEN Normal NONE SEEN [facility] Comment on above: Performed By: #### E RUR, UMICRO #### [facility] [address] [place] [address] Dr. Hardeep Rivera Crystals LM Nom (Urine sed) NONE SEEN Normal NONE SEEN [facility] Comment on above: Performed By: #### E RUR, UMICRO #### [facility] [address] [place] [address] Dr. Hardeep Rivera Epithelial cells LM Ql (Urine sed) NONE SEEN Normal NONE SEEN /RARE [facility] Comment on above: Performed By: #### E RUR, UMICRO #### [facility] [address] [place] [address] Dr. Hardeep Rivera MUCOUS NONE SEEN Normal NONE SEEN [facility] Comment on above: Performed By: #### E RUR, UMICRO #### [facility] [address] [place] [address] Dr. Hardeep Rivera RBC 0-2 Normal 0-2 [facility] Comment on above: Performed By: #### E RUR, UMICRO #### [facility] [address] [place] [address] Dr. Hardeep Rivera WBC NONE SEEN Normal NONE SEEN [facility] Comment on above: Performed By: #### E RUR, UMICRO #### [facility] [address] [place] [address] Dr. Hardeep Rivera XR CHEST 1 Von [...] JAZLYN DUBOSE Date: 2023-02-14 15:50 Normal [facility] FK506 (TACROLIMUS) WHOLE BLO ODon 02-13-2023 Tacrolimus (FK506), Blood 1.4 ng/mL Critically low 2.0-20.0 [facility] Comment on above: Result Comment: Trou gh (immediately following transplant) 15.0 . Trough (steady state, 2 weeks or more after transplant): 3.0 - 8.0 . Performed by LC-MS/MS technology. Performed By: #### E RUR #### [facility] [address] [address] [address] Hardeep Rivera PROF 14(COMP METB)on 023 Albumin [Mass/Vol] 3.5 g/dL Normal 3.4-5.0 [facility] Comment on above: Performed By: #### C MP ####[facility] [facility] [address] [address]DrLaura Rivera Albumin/Globulin [Mass ratio] 1.2 {ratio} Normal [facility] Comment on above: Performed By: #### C MP ####[facility] [address] [address]DrLaura Rivera ALP [Catalytic activity/Vol] 149 U/L Critically high 46-116 [facility] Comment on above: Performed By: #### C MP ####[facility] [address] [address]DrLaura Rivera ALT [Catalytic activity/Vol] 19 U/L Normal 14-59 [facility] Comment on above: Performed By: #### C MP ####[facility] [address] [address]DrLaura Rivera Anion gap [Moles/Vol] 11.7 mmol/L Normal Th [facility] Comment on above: Performed By: #### C MP ####[facility] [address] [place], [place] [address]Dr. Hardeep Miguel AST [Catalytic activity/Vol] 27 U/L Normal 15-37 [facility] Comment on above: Performed By: #### C MP ####[facility] [address] [place], [place] [address]Dr. Hardeep Rivera Bilirubin [Mass/Vol] 0.6 mg/dL Normal 0.2-1.0 [facility] Comment on above: Performed By: #### C MP ####[facility] [address] [place], [place] [address]Dr. Hardeep Rivera Calcium [Mass/Vol] 8.5 mg/dL Normal 8.5-10.1 [facility] Comment on above: Performed By: #### C MP ####[facility] S[address]xca[address] [place], [place] [address]Dr. Hardeep Rivera Chloride [Moles/Vol] 96 mmol/L Critically low 98-107 [facility] Comment on above: Performed By: #### C MP ####[facility] Myus[address]th[address] [place], [place] [address]Dr. Hardeep Rivera CO2 [Moles/Vol] 28.1 mmol/L Normal 21.0-32.0 [facility] Comment on above: Performed By: #### C MP ####[facility] [address] [place], [place] [address]Dr. Hardeep Rivera Creatinine [Mass/Vol] 1.24 mg/dL Critically high 0.55-1.02 [facility] Comment on above: Performed By: #### C MP ####[facility] [address] [place], [place] [address]Dr. Hardeep Rivera EGFR-AF SLOVENIAN 51 mL/min/1.73m2 Critically low >=60 [facility] Comment on above: Performed By: #### C MP ####[facility] [address] [place], [place] [address]Dr. Hardeep Rivera EGFR-NON AF SLOVENIAN 42 mL/min/1.73m2 Critically low >=60 [facility] Comment on above: Performed By: #### C MP ####[facility] [address] [place] [address]Dr. Hardeep Rivera Globulin (S) [Mass/Vol] 3.0 g/dL Normal [facility] Comment on above: Performed By: #### C MP ####[facility] [address] [address]Dr. Hardeep Rivera Glucose [Mass/Vol] 141 mg/dL Critically high 74-106 T [facility] Comment on above: Performed By: #### C MP ####[facility] [address] [address]Dr. Hardeep Rivera Potassium [Moles/Vol] 4.8 mmol/L Normal 3.5-5.1 [facility] Comment on above: Performed By: #### C MP ####[facility] [address] [place], [place] [address]Dr. Hardeep Rivera Protein [Mass/Vol] 6.5 g/dL Normal 6.4-8.2 [facility] Comment on above: Performed By: #### C MP ####[facility] [address] [place], [place] [address]Dr. Hardeep Rivera Sodium [Moles/Vol] 131 mmol/L Critically low 136-145 Th [facility] Comment on above: Performed By: #### C MP ####[facility] [address] [place], [place] [address]Dr. Hardeep Rivera Urea nitrogen [Mass/Vol] 29.0 mg/dL Critically high 7.0-18.0 [facility] Comment on above: Performed By: #### C MP ####[facility] [address] [place], [place] [address]Dr. Hardeep Rivera Urea nitrogen/Creatinine [Mass ratio] 23.4 mg/mg Normal [facility] Comment on above: Performed By: #### C MP ####[facility] [address] [place], [place] [address]Dr. Hardeep Rivera Telemedicineon 02-11-2023 Telemedicine [id number] Sylvia Herrera 1945 F Date Provider Department Center 02/11/2023 ANISHA JACOBS [facility] Family History Family history unknown: Yes Level of Service:76267 [place] PHYS/QHP TELEPHONE EVALUATION 11-20 MIN [facility] 36on 01-16-[address] Rooney's office called today to make you aware that Duyen ODETTE Rogers started Sylvia on losartan 50mg daily on 01/03. She would've been taking it when she saw you on 01/07, but she did not tell us. You stopped her amlodipine and increased her metoprolol. FYI Normal [facility] BNPon 01-09-2023 Natriuretic peptide B (Bld) [Mass/Vol] 336.0 pg/mL Normal <=1,800.0 [facility] Comment on above: Performed By: #### C MP, TSH, BNP, T7 ####[facility] [address] [address]Dr. Hardeep Rivera CBC AUTO DIFFon 01-09-2023 BASO # 0.0 103/ul Normal 0.0-0.1 [facility] Comment on above: Performed By: #### C BC #### [facility] [address] [address] [address] Hardeep Rivera Basophils/100 WBC (Bld) 0.4 % Normal 0.2-2.0 [facility] Comment on above: Performed By: #### C BC #### [facility] [address] [address] [address] Hardeep Rivera EO # 0.3 103/ul Normal 0.0-0.7 [facility] Comment on above: Performed By: #### C BC #### [facility] [address] [address] [address] Hardeep Rivera Eosinophils/100 WBC (Bld) 4.4 % Normal 0.9-7.0 [facility] Comment on above: Performed By: #### C BC #### [facility] [address] [address] [address] Hardeep Rivera Erythrocyte distribution width (RBC) [Ratio] 12.3 % Normal 11.0-15.0 [facility] Comment on above: Performed By: #### C BC #### [facility] [address] [place] [address] Dr. Hardeep Rivera Hematocrit (Bld) [Volume fraction] 43.3 % Normal 36.0-48.0 [facility] Comment on above: Performed By: #### C BC #### [facility] [address] [place] [address] Dr. Hardeep Rivera Hemoglobin (Bld) [Mass/Vol] 13.5 g/dL Normal 12.0-16.0 [facility] Comment on above: Performed By: #### C BC #### [facility] [address] [place] [address] Dr. Hardeep Rivera IG # 0.02 10e3/ul Normal 0.00-0.03 [facility] Comment on above: Performed By: #### C BC #### [facility] [address] [place] [address] Dr. Hardeep Rivera IG % 0.3 % Normal 0.0-0.5 [facility] Comment on above: Performed By: #### C BC #### [facility] [address] [place] [address] Dr. Hardeep Rivera LYMPH # 1.1 103/ul Critically low 1.2-3.8 [facility] Comment on above: Performed By: #### C BC #### [facility] [address] [place] [address] Dr. Hardeep Rivrea Lymphocytes/100 WBC (Bld) 16.0 % Critically low 20.5-60.0 [facility] Comment on above: Performed By: #### C BC #### [facility] [address] [place] [address] Dr. Hardeep Rivera MANUAL DIFF REQ NO Normal [facility] Comment on above: Performed By: #### C BC #### [facility] [address] [place] [address] Dr. Hardeep Rivera MCH (RBC) [Entitic mass] 28.4 pg Normal 26.7-34.0 [facility] Comment on above: Performed By: #### C BC #### [facility] [address] [place] [address] Dr. Hardeep Rivera MCHC (RBC) [Mass/Vol] 31.2 g/dL Normal 29.9-35.2 [facility] Comment on above: Performed By: #### C BC #### [facility] [address] [place] [address] Dr. Hardeep Rivera MCV (RBC) [Entitic vol] 91.0 fL Normal 81.0-99.0 [facility] Comment on above: Performed By: #### C BC #### [facility] [address] [place] [address] Dr. Hardeep Rivera MONO # 1.0 103/ul Critically high 0.3-0.8 [facility] Comment on above: Performed By: #### C BC #### [facility] [address] [place] [address] Dr. Hardeep Rivera Monocytes/100 WBC (Bld) 14.7 % Critically high 1.7-12.0 [facility] Comment on above: Performed By: #### C BC #### [facility] [address] [place] [address] Dr. Hardeep Rivera NEUT # 4.4 103/ul Normal 1.4-6.5 [facility] Comment on above: Performed By: #### C BC #### [facility] [address] [place] [address] Dr. Hardeep Rivera Neutrophils/100 WBC (Bld) 64.2 % Normal 43.0-75.0 [facility] Comment on above: Performed By: #### C BC #### [facility] [address] [place] [address] Dr. Hardeep Rivera Platelet mean volume (Bld) [Entitic vol] 9.5 fL Normal 9.5-13.5 [facility] Comment on above: Performed By: #### C BC #### [facility] [address] [place] [address] Dr. Hardeep Rivera PLT 238 103/ul Normal 150-450 [facility] Comment on above: Performed By: #### C BC #### [facility] [address] [address] [address] Hardeep Rivera RBC 4.76 106/ul Normal 4.20-5.40 [facility] Comment on above: Performed By: #### C BC #### [facility] [address] [address] [address] Hardeep Rivera WBC 6.8 103/ul Normal 4.0-11.0 [facility] Comment on above: Performed By: #### C BC #### [facility] [address] [address] [address] Hardeep Rivera FREE THYROXINE INDEX T7on FTI 3.96 Normal 1.30-4.50 [facility] Comment on above: Performed By: #### C MP, TSH, BNP, T7 ####[facility] [address] [address]Dr. Hardeep Rivera T3U 35.0 % Normal 30.0-39.0 [facility] Comment on above: Performed By: #### C MP, TSH, BNP, T7 ####[facility] [address] [address]Dr. Hardeep Rivera T4 [Mass/Vol] 11.30 ug/dL Normal 4.80-13.90 [facility] Comment on above: Performed By: #### C MP, TSH, BNP, T7 ####[facility] [address] [place] [address]Dr. Hardeep Rivera PROF 14(COMP METB)on 023 Albumin [Mass/Vol] 3.9 g/dL Normal 3.4-5.0 [facility] Comment on above: Performed By: #### C MP, TSH, BNP, T7 ####[facility] [address] [place] [address]Dr. Hardeep Rivera Albumin/Globulin [Mass ratio] 1.2 {ratio} Normal [facility] Comment on above: Performed By: #### C MP, TSH, BNP, T7 ####[facility] [address] [place] [address]Dr. Hardeep Rivera ALP [Catalytic activity/Vol] 151 U/L Critically high 46-116 [facility] Comment on above: Performed By: #### C MP, TSH, BNP, T7 ####[facility] [address] [place] [address]Dr. Hardeep Rivera ALT [Catalytic activity/Vol] 30 U/L Normal 14-59 [facility] Comment on above: Performed By: #### C MP, TSH, BNP, T7 ####[facility] [address] [place] [address]Dr. Hardeep Rivera Anion gap [Moles/Vol] 15.6 mmol/L Normal Th [facility] Comment on above: Performed By: #### C MP, TSH, BNP, T7 ####[facility] [address] [place], [place] [address]Dr. Hardeep Rivera AST [Catalytic activity/Vol] 23 U/L Normal 15-37 [facility] Comment on above: Performed By: #### C MP, TSH, BNP, T7 ####[facility] [address] [place], [place] [address]Dr. Hardeep Rivera Bilirubin [Mass/Vol] 0.7 mg/dL Normal 0.2-1.0 [facility] Comment on above: Performed By: #### C MP, TSH, BNP, T7 ####[facility] [address] [place], [place] [address]Dr. Hardeep Rivera Calcium [Mass/Vol] 9.0 mg/dL Normal 8.5-10.1 [facility] Comment on above: Performed By: #### C MP, TSH, BNP, T7 ####[facility] [address] [place] [address]Dr. Hardeep Rivera Chloride [Moles/Vol] 97 mmol/L Critically low 98-107 [facility] Comment on above: Performed By: #### C MP, TSH, BNP, T7 ####[facility] [address] [place] [address]Dr. Hardeep Rivera CO2 [Moles/Vol] 26.1 mmol/L Normal 21.0-32.0 [facility] Comment on above: Performed By: #### C MP, TSH, BNP, T7 ####[facility] [address] [place] [address]Dr. Hardeep Rivera Creatinine [Mass/Vol] 1.78 mg/dL Critically high 0.55-1.02 [facility] Comment on above: Performed By: #### C MP, TSH, BNP, T7 ####[facility] [address] [place], [place] [address]Dr. Hardeep Rivera EGFR-AF SLOVENIAN 33 mL/min/1.73m2 Critically low >=60 [facility] Comment on above: Performed By: #### C MP, TSH, BNP, T7 ####[facility] [address] [place], [place] [address]Dr. Hardeep Rivera EGFR-NON AF SLOVENIAN 28 mL/min/1.73m2 Critically low >=60 [facility] Comment on above: Performed By: #### C MP, TSH, BNP, T7 ####[facility] [address] [place], [place] [address]Dr. Hardeep Rivera Globulin (S) [Mass/Vol] 3.3 g/dL Normal [facility] Comment on above: Performed By: #### C MP, TSH, BNP, T7 ####[facility] [address] [place] [address]Dr. Hardeep Rivera Glucose [Mass/Vol] 127 mg/dL Critically high 74-[address] [facility] Comment on above: Performed By: #### C MP, TSH, BNP, T7 ####[facility] [address] [place] [address]Dr. Hardeep Rivera Potassium [Moles/Vol] 3.7 mmol/L Normal 3.5-5.1 [facility] Comment on above: Performed By: #### C MP, TSH, BNP, T7 ####[facility] [address] [place] [address]Dr. Hardeep Rivera Protein [Mass/Vol] 7.2 g/dL Normal 6.4-8.2 [facility] Comment on above: Performed By: #### C MP, TSH, BNP, T7 ####[facility] [address] [place] [address]Dr. Hardeep Rivera Sodium [Moles/Vol] 135 mmol/L Critically low 136-145 Th [facility] Comment on above: Performed By: #### C MP, TSH, BNP, T7 ####[facility] [address] [place] [address]Dr. Hardeep Rivera Urea nitrogen [Mass/Vol] 54.0 mg/dL Critically high 7.0-18.0 [facility] Comment on above: Performed By: #### C MP, TSH, BNP, T7 ####[facility] [address] [place] [address]Dr. Hardeep Rivera Urea nitrogen/Creatinine [Mass ratio] 30.3 mg/mg Normal [facility] Comment on above: Performed By: #### C MP, TSH, BNP, T7 ####[facility] [address] [place] [address]Dr. Hardeep Rivera TSHon 01-09-2023 TSH 1.097 uIU/mL Normal 0.358-3.740 [facility] Comment on above: Performed By: #### C MP, TSH, BNP, T7 ####[facility] [address] [place] [address]Dr. Hardeep Rivera Office Visiton 01-07-2023 Follow-up visit [id number] Sylvia Herrera Erin 1945 F Date Provider Department Center 01/07/2023 ANISHA JACOBS [facility] Family History Family history unknown: Yes Level of Service:88371 [place] OFFICE/OUTPATIENT ESTABLISHED MOD MDM 30-39 MIN Normal [facility] ECHOCARDIO M/2D COMPLETEon 0 12-13-2022 ECHOCARDIO M/2D COMPLETE Patient: SYLVIA HERRERA Exam Date: 12/13/2022 : 1945 Gender:F Ordering : DUYEN ROGERS [facility] Admission #: [id number] Family : Order #: [id number] CLICK HERE TO VIEW EXAM ECHOCARDIOGRAM REPORT [...] Area (VTI): 2.23 cm2, 2.23 cm2 Deceleration Wolfe: 1.44 m/s2 Pressure Half-Time: 850.98 ms Peak [...] Nolan M.D. on 12/14/2022 at 13:49 Normal [facility] US ALAN DOP LEG BILon 023 [...] HAI FOSTER Date: 2022-12-13 10:51 Normal [facility] BNPon 12-11-2022 Natriuretic peptide B (Bld) [Mass/Vol] 457.0 pg/mL Normal <=1,800.0 [facility] Comment on above: Performed By: #### RANDALL OLSON #### [facility] [address] [place] [address] Dr. Hardeep Rivera CBC AUTO DIFFon 12-11-2022 BASO # 0.0 103/ul Normal 0.0-0.1 [facility] Comment on above: Performed By: #### HARI OLSONRO #### [facility] [address] [place] [address] Dr. Hardeep Rivera Basophils/100 WBC (Bld) 0.4 % Normal 0.2-2.0 [facility] Comment on above: Performed By: #### HARI OLSONRO #### [facility] [address] [place] [address] Dr. Hardeep Rivera EO # 0.2 103/ul Normal 0.0-0.7 [facility] Comment on above: Performed By: #### HARI OLSONRO #### [facility] [address] [place] [address] Dr. Hardeep Rivera Eosinophils/100 WBC (Bld) 2.7 % Normal 0.9-7.0 [facility] Comment on above: Performed By: #### HARI OLSONRO #### [facility] [address] [place] [address] Dr. Hardeep Rivera Erythrocyte distribution width (RBC) [Ratio] 11.9 % Normal 11.0-15.0 [facility] Comment on above: Performed By: #### HARI OLSONRO #### [facility] [address] [place] [address] Dr. Hardeep Rivera Hematocrit (Bld) [Volume fraction] 40.2 % Normal 36.0-48.0 [facility] Comment on above: Performed By: #### Deedee PINON UMICRO #### [facility] [address] [place] [address] Dr. Hardeep Rivera Hemoglobin (Bld) [Mass/Vol] 13.5 g/dL Normal 12.0-16.0 [facility] Comment on above: Performed By: #### Deedee PINON UMICRO #### [facility] [address] [place] [address] Dr. Hardeep Rivera IG # 0.03 10e3/ul Normal 0.00-0.03 [facility] Comment on above: Performed By: #### Deedee PINON UMICRO #### [facility] [address] [place] [address] Dr. Hardeep Rivera IG % 0.4 % Normal 0.0-0.5 [facility] Comment on above: Performed By: #### Deedee PINON UMICRO #### [facility] [address] [place] [address] Dr. Hardeep Rivera LYMPH # 0.9 103/ul Critically low 1.2-3.8 [facility] Comment on above: Performed By: #### Deedee PINON UMICRO #### [facility] [address] [place] [address] Dr. Hardeep Rivera Lymphocytes/100 WBC (Bld) 11.3 % Critically low 20.5-60.0 [facility] Comment on above: Performed By: #### Deedee PINON UMICRO #### [facility] [address] [place] [address] Dr. Hardeep Rivera MANUAL DIFF REQ NO Normal [facility] Comment on above: Performed By: #### Deedee PINON UMICRO #### [facility] [address] [place] [address] Dr. Hardeep Rivera MCH (RBC) [Entitic mass] 28.4 pg Normal 26.7-34.0 [facility] Comment on above: Performed By: #### Deedee PINON UMICRO #### [facility] [address] [place] [address] Dr. Hardeep Rivera MCHC (RBC) [Mass/Vol] 33.6 g/dL Normal 29.9-35.2 [facility] Comment on above: Performed By: #### AKSHAT OLSONICRO #### [facility] [address] [place] [address] Dr. Hardeep Rivera MCV (RBC) [Entitic vol] 84.5 fL Normal 81.0-99.0 [facility] Comment on above: Performed By: #### Deedee PINON UMICRO #### [facility] [address] [place] [address] Dr. Hardeep Rivera MONO # 1.0 103/ul Critically high 0.3-0.8 [facility] Comment on above: Performed By: #### Deedee PINON UMICRO #### [facility] [address] [place] [address] Dr. Hardeep Rivera Monocytes/100 WBC (Bld) 12.5 % Critically high 1.7-12.0 [facility] Comment on above: Performed By: #### Deedee PINON UMICRO #### [facility] [address] [place] [address] Dr. Hardeep Rivera NEUT # 5.9 103/ul Normal 1.4-6.5 [facility] Comment on above: Performed By: #### Deedee PINON UMICRO #### [facility] [address] [place] [address] Dr. Hardeep Rivera Neutrophils/100 WBC (Bld) 72.7 % Normal 43.0-75.0 [facility] Comment on above: Performed By: #### Deedee PINON UMICRO #### [facility] [address] [place] [address] Dr. Hardeep Rivera Platelet mean volume (Bld) [Entitic vol] 8.6 fL Critically low 9.5-13.5 [facility] Comment on above: Performed By: #### Deedee PINON UMICRO #### [facility] [address] [place] [address] Dr. Hardeep Rivera PLT 226 103/ul Normal 150-450 [facility] Comment on above: Performed By: #### HARI OLSONRO #### [facility] [address] [place] [address] Dr. Hardeep Rivera RBC 4.76 106/ul Normal 4.20-5.40 [facility] Comment on above: Performed By: #### HARI OLSONRO #### [facility] [address] [place] [address] Dr. Hardeep Rivera WBC 8.2 103/ul Normal 4.0-11.0 [facility] Comment on above: Performed By: #### Deeede PINON UMICRO #### [facility] [address] [place] [address] Dr. Hardeep Rivera FREE THYROXINE INDEX T7on FTI 3.40 Normal 1.30-4.50 [facility] Comment on above: Performed By: #### HARI OLSONRO #### [facility] [address] [place] [address] Dr. Hardeep Rivera T3U 34.0 % Normal 30.0-39.0 [facility] Comment on above: Performed By: #### HARI OLSONRO #### [facility] [address] [place] [address] Dr. Hardeep Rivera T4 [Mass/Vol] 10.00 ug/dL Normal 4.80-13.90 [facility] Comment on above: Performed By: #### HARI OLSONRO #### [facility] [address] [place] [address] Dr. Hardeep Rivera PROF 14(COMP METB)on 023 Albumin [Mass/Vol] 3.8 g/dL Normal 3.4-5.0 [facility] Comment on above: Performed By: #### HARI OLSONRO #### [facility] [address] [place] [address] Dr. Hardeep Rivera Albumin/Globulin [Mass ratio] 1.1 {ratio} Normal [facility] Comment on above: Performed By: #### HARI OLSONRO #### [facility] [address] [place] [address] Dr. Hardeep Rivera ALP [Catalytic activity/Vol] 192 U/L Critically high 46-116 [facility] Comment on above: Performed By: #### RANDALL OLSON #### [facility] [address] [place] [address] Dr. Hardeep Rivera ALT [Catalytic activity/Vol] 22 U/L Normal 14-59 [facility] Comment on above: Performed By: #### HARI OLSONRO #### [facility] [address] [place] [address] Dr. Hardeep Rivera Anion gap [Moles/Vol] 11.4 mmol/L Normal [facility] Comment on above: Performed By: #### HARI OLSONRO #### [facility] [address] [place] [address] Dr. Hardeep Rivera AST [Catalytic activity/Vol] 22 U/L Normal 15-37 [facility] Comment on above: Performed By: #### HARI OLSONRO #### [facility] [address] [place] [address] Dr. Hardeep Rivera Bilirubin [Mass/Vol] 0.5 mg/dL Normal 0.2-1.0 [facility] Comment on above: Performed By: #### HARI OLSONRO #### [facility] [address] [place] [address] Dr. Hardeep Rivera Calcium [Mass/Vol] 9.1 mg/dL Normal 8.5-10.1 [facility] Comment on above: Performed By: #### HARI OLSONRO #### [facility] [address] [place] [address] Dr. Hardeep Rivera Chloride [Moles/Vol] 93 mmol/L Critically low 98-107 [facility] Comment on above: Performed By: #### HARI OLSONRO #### [facility] [address] [place] [address] Dr. Hardeep Rivera CO2 [Moles/Vol] 30.8 mmol/L Normal 21.0-32.0 [facility] Comment on above: Performed By: #### Deedee PINON UMICRO #### [facility] [address] [place] [address] Dr. Hardeep Rivera Creatinine [Mass/Vol] 1.49 mg/dL Critically high 0.55-1.02 [facility] Comment on above: Performed By: #### E RUR, UMICRO #### [facility] [address] [place] [address] Dr. Hardeep Rivera EGFR-AF SLOVENIAN 41 mL/min/1.73m2 Critically low >=60 [facility] Comment on above: Performed By: #### E RUR, UMICRO #### [facility] [address] [place] [address] Dr. Hardeep Rivera EGFR-NON AF SLOVENIAN 34 mL/min/1.73m2 Critically low >=60 [facility] Comment on above: Performed By: #### E RUR, UMICRO #### [facility] [address] [place] [address] Dr. Hardeep Rivera Globulin (S) [Mass/Vol] 3.4 g/dL Normal [facility] Comment on above: Performed By: #### E COLLINSR UMICRO #### [facility] [address] [place] [address] Dr. Hardeep Rivera Glucose [Mass/Vol] 116 mg/dL Critically high 74-106 [facility] Comment on above: Performed By: #### E RUR, UMICRO #### [facility] [address] [place] [address] Dr. Hardeep Rivera Potassium [Moles/Vol] 4.2 mmol/L Normal 3.5-5.1 [facility] Comment on above: Performed By: #### E RUR, UMICRO #### [facility] [address] [place] [address] Dr. Hardeep Rivera Protein [Mass/Vol] 7.2 g/dL Normal 6.4-8.2 [facility] Comment on above: Performed By: #### E RUR, UMICRO #### [facility] [address] [place] [address] Dr. Hardeep Rivera Sodium [Moles/Vol] 131 mmol/L Critically low 136-145 [facility] Comment on above: Performed By: #### HARI OLSONRO #### [facility] [address] [address] [address] Hardeep Rivera Urea nitrogen [Mass/Vol] 38.0 mg/dL Critically high 7.0-18.0 [facility] Comment on above: Performed By: #### Deedee PINON, HARIRO #### [facility] [address] [address] [address] Hardeep Rivera Urea nitrogen/Creatinine [Mass ratio] 25.5 mg/mg Normal [facility] Comment on above: Performed By: #### HARI OLSONRO #### [facility] [address] [place] [address] Dr. Hardeep Rivera TSHon 12-11-2022 TSH 6.407 uIU/mL Critically high 0.358-3.740 [facility] Comment on above: Performed By: #### HARI OLSONRO #### [facility] [address] [place] [address] Dr. Hardeep Rivera 36on 12-07-2022 36 Pt had called pcp they ordered echo and labs will watch for results Normal [facility] Covid-19 PCR ([facility])on 11-01 SARS-CoV-2 (COVID-19) RNA ULICES+probe Ql (Unsp spec) Not detected Normal NOT DETECTED [facility] Comment on above: Result Comment: This test is not yet approved or cleared by the [place] FDA. When there are no FDA-approved or cleared tests available, and other criteria are met, FDA can make tests available under an emergency access mechanism called an Emergency Use Authorization (EUA). The EUA for this test is supported by the [place] [employer] [place] of Health and Human Service's (HHS's) declaration [...] consistent with SARS-CoV-2. Performed By: #### [facility] #### [facility] [address] [place] [address] Dr. Hardeep Rivera INFLUENZA A AND B AGon 11-14 [facility] SEE BELOW Normal [facility] Comment on above: Result Comment: Nega tive for Flu A protein angiten. Infection due to Flu A cannot be ruled out. Flu A angiten in the sample may be below the detection limit of the test. Performed By: #### Deedee PINON ICRO #### [facility] [address] [place] [address] Dr. [facility] Normal [facility] Comment on above: Result Comment: Nega tive for Flu B protein antigen. Infection due to Flu B cannot be ruled out. Flu B antigen in the sample may be below the detection limit of the test. Performed By: #### Deedee PINON UMICRO #### [facility] [address] [place] [address] Dr. Hardeep Rivera INFLUENZA A AG Negative Normal NEGATIVE SEE COMMENT [facility] Comment on above: Performed By: #### Deedee PINON UMICRO #### [facility] [address] [place] [address] Dr. Hardeep Rivera INFLUENZA B AG Negative Normal NEGATIVE SEE COMMENT [facility] Comment on above: Performed By: #### Deedee PINON UMICRO #### [facility] [address] [place] [address] Dr. Hardeep Rivera INTERNAL CONTROLS Within Normal Limits Normal Wi thin Normal Limits [facility] Comment on above: Performed By: #### Deedee PINON, UMICRO #### [facility] [address] [place] [address] Dr. Hardeep Rivera Covid-19 PCR ([facility])on SARS-CoV-2 (COVID-19) RNA ULICES+probe Ql (Unsp spec) Not detected Normal NOT DETECTED [facility] Comment on above: Result Comment: This test is not yet approved or cleared by the [place] FDA. When there are no FDA-approved or cleared tests available, and other criteria are met, FDA can make tests available under an emergency access mechanism called an Emergency Use Authorization (EUA). The EUA for this test is supported by the [employer] of Health and Human Service's (HHS's) declaration [...] SARS-CoV-2. Performed By: #### C VDTB #### [facility] [address] [place] [address] Dr. Hardeep Rivera INFLUENZA A AND B AGon 10-03 [facility] Normal [facility] Comment on above: Result Comment: Nega tive for Flu A protein angiten. Infection due to Flu A cannot be ruled out. Flu A angiten in the sample may be below the detection limit of the test. Performed By: #### HARI OLSONRO #### [facility] [address] [place] [address] Dr. Hard[facility]ep [facility] Normal [facility] Comment on above: Result Comment: Nega tive for Flu B protein antigen. Infection due to Flu B cannot be ruled out. Flu B antigen in the sample may be below the detection limit of the test. Performed By: #### HARI OLSONRO #### [facility] [address] [place] [address] Dr. Hardeep Rivera INFLUENZA A AG Negative Normal NEGATIVE SEE COMMENT [facility] Comment on above: Performed By: #### AKSHAT OLSONICRO #### [facility] [address] [address] [address] Hardeep Rivera INFLUENZA B AG Negative Normal NEGATIVE SEE COMMENT [facility] Comment on above: Performed By: #### RANDALL OLSON #### [facility] [address] [address] [address] Hardeep Rivera INTERNAL CONTROLS Within Normal Limits Normal Wi thin Normal Limits [facility] Comment on above: Performed By: #### RANDALL OLSON #### [facility] [address] [address] [address] Hardeep Clark 08-16-2022 CNPN Telephone (CARD [facility] SYLVIA HERRERA ([id number]) 1945 F Date Time Provider Department 08/16/22 SOY MCCANN [facility] During your visit today, we recorded [...] mg by mouth three times daily. - ititeb-pwwcqvdo-yvlpp se (CREON) 24,000-76,000 -120,000 unit cpDR Take [...] Status:Closed by SOY MCCANN on 08/16/22 Normal [facility] AMYLASEon 08-04-2022 Amylase [Catalytic activity/Vol] 155 U/L Critically high 25-115 [facility] Comment on above: Performed By: #### C MPABAD, BRITTNEY ####[facility] [address] [address]DrLaura Rivera CBC AUTO DIFFon 08-04-2022 BASO # 0.0 103/ul Normal 0.0-0.1 [facility] Comment on above: Performed By: #### C BC ####[facility] [address] [place], [place] [address]DrLaura Rivera Basophils/100 WBC (Bld) 0.3 % Normal 0.2-2.0 [facility] Comment on above: Performed By: #### C BC ####[facility] [address] [place], [place] [address]DrLaura Rivera EO # 0.1 103/ul Normal 0.0-0.7 [facility] Comment on above: Performed By: #### C BC ####[facility] [address] [place], [place] [address]DrLaura Rivera Eosinophils/100 WBC (Bld) 1.2 % Normal 0.9-7.0 [facility] Comment on above: Performed By: #### C BC ####[facility] [address] [place], [place] [address]DrLaura Rivera Erythrocyte distribution width (RBC) [Ratio] 12.2 % Normal 11.0-15.0 [facility] Comment on above: Performed By: #### C BC ####[facility] [address] [place], [place] [address]DrLaura Rivera Hematocrit (Bld) [Volume fraction] 38.3 % Normal 36.0-48.0 [facility] Comment on above: Performed By: #### C BC ####[facility] [address] [place], [place] [address]Dr. Hardeep Rivera Hemoglobin (Bld) [Mass/Vol] 12.9 g/dL Normal 12.0-16.0 [facility] Comment on above: Performed By: #### C BC ####[facility] [address] [address]Dr. Hardeep Rivera IG # 0.02 10e3/ul Normal 0.00-0.03 [facility] Comment on above: Performed By: #### C BC ####[facility] [address] [address]Dr. Hardeep Rivera IG % 0.3 % Normal 0.0-0.5 [facility] Comment on above: Performed By: #### C BC ####[facility] [address] [place], [place] [address]Dr. Hardeep Rivera LYMPH # 1.1 103/ul Critically low 1.2-3.8 [facility] Comment on above: Performed By: #### C BC ####[facility] [address] [place], [place] [address]Dr. Hardeep Rivera Lymphocytes/100 WBC (Bld) 16.6 % Critically low 20.5-60.0 [facility] Comment on above: Performed By: #### C BC ####[facility] [address] [place], [place] [address]Dr. Hardeep Rivera MANUAL DIFF REQ NO Normal [facility] Comment on above: Performed By: #### C BC ####[facility] [address] [place], [place] [address]Dr. Hardeep Rivera MCH (RBC) [Entitic mass] 29.7 pg Normal 26.7-34.0 [facility] Comment on above: Performed By: #### C BC ####[facility] [address] [place], [place] [address]Dr. Hardeep Rivera MCHC (RBC) [Mass/Vol] 33.7 g/dL Normal 29.9-35.2 [facility] Comment on above: Performed By: #### C BC ####[facility] [address] [place], [place] [address]Dr. Hardeep Rivera MCV (RBC) [Entitic vol] 88.2 fL Normal 81.0-99.0 [facility] Comment on above: Performed By: #### C BC ####[facility] [address] [address]Dr. Hardeep Rivera MONO # 0.7 103/ul Normal 0.3-0.8 [facility] Comment on above: Performed By: #### C BC ####[facility] [address] [place], [place] [address]Dr. Hardeep Rivera Monocytes/100 WBC (Bld) 11.1 % Normal 1.7-12.0 [facility] Comment on above: Performed By: #### C BC ####[facility] [address] [place], [place] [address]Dr. Hardeep Rivera NEUT # 4.6 103/ul Normal 1.4-6.5 [facility] Comment on above: Performed By: #### C BC ####[facility] [address] [place], [place] [address]Dr. Hardeep Rivera Neutrophils/100 WBC (Bld) 70.5 % Normal 43.0-75.0 [facility] Comment on above: Performed By: #### C BC ####[facility] [address] [place], [place] [address]Dr. Hardeep Rivera Platelet mean volume (Bld) [Entitic vol] 9.4 fL Critically low 9.5-13.5 [facility] Comment on above: Performed By: #### C BC ####[facility] [address] [place], [place] [address]Dr. Hardeep Miguel PLT 203 103/ul Normal 150-450 [facility] Comment on above: Performed By: #### C BC ####[facility] [address] [place], [place] [address]Dr. Hardeep Miguel RBC 4.34 106/ul Normal 4.20-5.40 [facility] Comment on above: Performed By: #### C BC ####[facility] [address] [place], [place] [address]Dr. Hardeep Rivera WBC 6.5 103/ul Normal 4.0-11.0 [facility] Comment on above: Performed By: #### C ####[facility] [address] [place], [place] [address]. [address] Rivera CT ABD/PELVIS WO CONon 08-04 [...] ALEXSANDER HARDING Date: 2022-08-04 20:12 Normal [facility] Covid-19 PCR [facility]on SARS-CoV-2 (COVID-19) RNA ULICES+probe Ql (Unsp spec) Not detected Normal NOT DETECTED [facility] Comment on above: Result Comment: [...] for this test is supported by the [place] of Health and Human Service's declaration that [...] be used). Performed By: #### C VDTBH ####[facility] [address] [place], [place] [address]WkDr. Hardeep CASILLAS URINE PROFILEon 2 Bilirubin Ql (U) Negative Normal NEGATIVE [facility] Comment on above: Performed By: #### E RUR #### [facility] [address] [place], [place] [address] Dr. Yilan Rivera Clarity (U) CLEAR Normal CLEAR [facility] Comment on above: Performed By: #### E RUR #### [facility] [address] [place] [address] Dr. Hardeep Rivera Color (U) LT. YELLOW Normal YELLOW [facility] Comment on above: Performed By: #### E RUR #### [facility] [address] [place] [address] Dr. Hardeep FRANCIS A micrscopic examination will be performed if indicated. Normal [facility] Comment on above: Performed By: #### E RUR #### [facility] [address] [place] [address] Dr. Hardeep Rivera Glucose Ql (U) Negative Normal NEGATIVE [facility] Comment on above: Performed By: #### E RUR #### [facility] [address] [place] [address] Dr. Hardeep Rivera Hemoglobin Ql (U) Negative Normal NEGATIVE [facility] Comment on above: Performed By: #### E RUR #### [facility] [address] [place] [address] Dr. Hardeep Rivera Ketones Ql (U) Negative Normal NEGATIVE [facility] Comment on above: Performed By: #### E RUR #### [facility] [address] [place] [address] Dr. Hardeep Rivera LEUKOCYTES Negative Normal NEGATIVE [facility] Comment on above: Performed By: #### E RUR #### [facility] [address] [place] [address] Dr. Hardeep Rivera Nitrite Ql (U) Negative Normal NEGATIVE [facility] Comment on above: Performed By: #### E RUR #### [facility] [address] [place] [address] Dr. Hardeep Rivera pH (U) 7.0 [pH] Normal 5-9 [facility] Comment on above: Performed By: #### E RUR #### [facility] [address] [place] [address] Dr. Hardeep Rivera SPEC GRAVITY <=1.005 Abnormal 1.005-<=1.02 5 [facility] Comment on above: Performed By: #### E RUR #### [facility] [address] [address] [address] Hardeep Rivera UA PROTEIN Negative Normal NEGATIVE/ TRACE [facility] Comment on above: Performed By: #### E RUR #### [facility] [address] [address] [address] Hardeep Rivera UR MICRO IND NOT INDICATED Normal [facility] Comment on above: Performed By: #### E RUR #### [facility] [address] [address] [address] Hardeep Rivera Urobilinogen Qn (U) 0.2 {Kevon'U}/dL Normal 0.2 - 1. 0 [facility] Comment on above: Performed By: #### E RUR #### [facility] [address] [place] [address] Dr. Hardeep Rivera LIPASEon 08-04-2022 Lipase [Catalytic activity/Vol] 1486.0 U/L Critically high 73.0-393.0 [facility] Comment on above: Performed By: #### C ABAD MORE, BRITTNEY ####[facility] [address] [place], [place] [address]DrLaura Rivera PROF 14(COMP METB)on 022 Albumin [Mass/Vol] 3.6 g/dL Normal 3.4-5.0 [facility] Comment on above: Performed By: #### C ARGENIS LIPJhony, BRITTNEY ####[facility] [address] [address]DrLaura Rivera Albumin/Globulin [Mass ratio] 1.3 {ratio} Normal [facility] Comment on above: Performed By: #### C DERRELL MOREA, BRITTNEY ####[facility] [address] [address]DrLaura Rivera ALP [Catalytic activity/Vol] 171 U/L Critically high 46-116 [facility] Comment on above: Performed By: #### C ARGENIS LIPA, BRITTNEY ####[facility] [address] [address]Dr. Hardeep Rivera ALT [Catalytic activity/Vol] 35 U/L Normal 14-59 [facility] Comment on above: Performed By: #### C ABAD MORE, BRITTNEY ####[facility] [address] [place], [place] [address]Dr. Hardeep Rivera Anion gap [Moles/Vol] 11.4 mmol/L Normal [facility] Comment on above: Performed By: #### C ARGENIS LIPA, BRITTNEY ####[facility] [address] [place], [place] [address]Dr. Hardeep Rivera AST [Catalytic activity/Vol] 28 U/L Normal 15-37 [facility] Comment on above: Performed By: #### C ARGENIS LIPA, BRITTNEY ####[facility] [address] [place], [place] [address]Dr. Hardeep Rivera Bilirubin [Mass/Vol] 0.7 mg/dL Normal 0.2-1.0 [facility] Comment on above: Performed By: #### C ARGENIS LIPA, BRITTNEY ####[facility] [address] [place], [place] [address]Dr. Hardeep Rivera Calcium [Mass/Vol] 8.4 mg/dL Critically low 8.5-10.1 [facility] Comment on above: Performed By: #### C ARGENIS LIPA, BRITTNEY ####[facility] [address] [place], [place] [address]Dr. Hardeep Rivera Chloride [Moles/Vol] 100 mmol/L Normal 98-107 [facility] Comment on above: Performed By: #### C ARGENIS LIPA, BRITTNEY ####[facility] [address] [place], [place] [address]Dr. Hardeep Rivera CO2 [Moles/Vol] 25.6 mmol/L Normal 21.0-32.0 [facility] Comment on above: Performed By: #### C MP, LIPA, BRITTNEY ####[facility] [address] [place], [place] [address]Dr. Hardeep Rivera Creatinine [Mass/Vol] 1.33 mg/dL Critically high 0.55-1.02 [facility] Comment on above: Performed By: #### C ARGENIS LIPA, BRITTNEY ####[facility] [address] [address]Dr. Hardeep Rivera EGFR-AF SLOVENIAN 47 mL/min/1.73m2 Critically low >=60 [facility] Comment on above: Performed By: #### C ARGENIS LIPA, BRITTNEY ####[facility] [address] [address]Dr. Hardeep Rivera EGFR-NON AF SLOVENIAN 39 mL/min/1.73m2 Critically low >=60 [facility] Comment on above: Performed By: #### C ARGENIS LIPA, BRITTNEY ####[facility] [address] [place], [place] [address]Dr. Hardeep Rivera Globulin (S) [Mass/Vol] 2.7 g/dL Normal [facility] Comment on above: Performed By: #### C ARGENIS LIPA, BRITTNEY ####[facility] [address] [place], [place] [address]Dr. Hardeep Rivera Glucose [Mass/Vol] 108 mg/dL Critically high 74-106 [facility] Comment on above: Performed By: #### C DERRELL MOREA, BRITTNEY ####[facility] [address] [place], [place] [address]Dr. Hardeep Rivera Potassium [Moles/Vol] 4.0 mmol/L Normal 3.5-5.1 [facility] Comment on above: Performed By: #### C ARGENIS LIPA, BRITTNEY ####[facility] [address] [place], [place] [address]Dr. Hardeep Rivera Protein [Mass/Vol] 6.3 g/dL Critically low 6.4-8.2 [facility] Comment on above: Performed By: #### C ARGENIS LIPA, BRITTNEY ####[facility] [address] [place], [place] [address]Dr. Hardeep Rivera Sodium [Moles/Vol] 133 mmol/L Critically low 136-145 Th [facility] Comment on above: Performed By: #### C ARGENIS LIPA, BRITTNEY ####[facility] [address] [address]Dr. Hardeep Rivera Urea nitrogen [Mass/Vol] 23.0 mg/dL Critically high 7.0-18.0 [facility] Comment on above: Performed By: #### C ABAD MORE AMY ####[facility] [address] [place], [place] [address]RjLaura Rivera Urea nitrogen/Creatinine [Mass ratio] 17.3 mg/mg Normal [facility] Comment on above: Performed By: #### C ABAD MORE AMY ####[facility] [address] [address]Dr. Hardeep Rivera Pre-Certification Formon Pre-Certification Form [id number] #[id number] Normal [facility] BOX TEST SENT OUTon 08-02-20 22 SENT TO REF LAB 08/02/2022 Normal [facility] Comment on above: Performed By: #### Deedee RUR #### [facility] [address] [place] [address] Dr. Hardeep Rivera CBC AUTO DIFFon 08-02-2022 BASO # 0.0 103/ul Normal 0.0-0.1 [facility] Comment on above: Performed By: #### HARI OLSONRO #### [facility] [address] [address] [address] Hardeep Rivera Basophils/100 WBC (Bld) 0.3 % Normal 0.2-2.0 [facility] Comment on above: Performed By: #### HARI OLSONRO #### [facility] [address] [address] [address] Hardeep Rivera EO # 0.1 103/ul Normal 0.0-0.7 [facility] Comment on above: Performed By: #### HARI OLSONRO #### [facility] Laboratory [address] [place] [address] Dr. Hardeep Rivera Eosinophils/100 WBC (Bld) 1.4 % Normal 0.9-7.0 [facility] Comment on above: Performed By: #### RANDALL OLSON #### [facility] [address] [place] [address] Dr. Hardeep Rivera Erythrocyte distribution width (RBC) [Ratio] 12.2 % Normal 11.0-15.0 [facility] Comment on above: Performed By: #### RANDALL OLSON #### [facility] [address] [place] [address] Dr. Hardeep Rivera Hematocrit (Bld) [Volume fraction] 41.2 % Normal 36.0-48.0 [facility] Comment on above: Performed By: #### RANDALL OLSON #### [facility] [address] [place] [address] Dr. Hardeep Rivera Hemoglobin (Bld) [Mass/Vol] 13.6 g/dL Normal 12.0-16.0 [facility] Comment on above: Performed By: #### RANDALL OLSON #### [facility] [address] [place] [address] Dr. Hardeep Rivera IG # 0.02 10e3/ul Normal 0.00-0.03 [facility] Comment on above: Performed By: #### RANDALL OLSON #### [facility] [address] [place] [address] Dr. Hardeep Rivera IG % 0.3 % Normal 0.0-0.5 [facility] Comment on above: Performed By: #### RANDALL OLSON #### [facility] [address] [place] [address] Dr. Hardeep Rivera LYMPH # 0.6 103/ul Critically low 1.2-3.8 [facility] Comment on above: Performed By: #### RANDALL OLSON #### [facility] [address] [place] [address] Dr. Hardeep Rivera Lymphocytes/100 WBC (Bld) 8.9 % Critically low 20.5-60.0 [facility] Comment on above: Performed By: #### RANDALL OLSON #### [facility] [address] [place] [address] Dr. Hardeep Rivera MANUAL DIFF REQ NO Normal [facility] Comment on above: Performed By: #### E RUR, UMICRO #### [facility] [address] [place] [address] Dr. Hardeep Rivera MCH (RBC) [Entitic mass] 29.6 pg Normal 26.7-34.0 [facility] Comment on above: Performed By: #### E RUTrish, UMICRO #### [facility] [address] [place] [address] Dr. Hardeep Rivera MCHC (RBC) [Mass/Vol] 33.0 g/dL Normal 29.9-35.2 [facility] Comment on above: Performed By: #### E KATHRIN, UMICRO #### [facility] [address] [place] [address] Dr. Hardeep Rivera MCV (RBC) [Entitic vol] 89.8 fL Normal 81.0-99.0 [facility] Comment on above: Performed By: #### Deedee PINON, UMICRO #### [facility] [address] [place] [address] Dr. Hardeep Rivera MONO # 0.7 103/ul Normal 0.3-0.8 [facility] Comment on above: Performed By: #### Deedee PINON, UMICRO #### [facility] [address] [place] [address] Dr. Hardeep Rivera Monocytes/100 WBC (Bld) 11.6 % Normal 1.7-12.0 [facility] Comment on above: Performed By: #### Deedee PINON, UMICRO #### [facility] [address] [place] [address] Dr. Hardeep Rivera NEUT # 5.0 103/ul Normal 1.4-6.5 [facility] Comment on above: Performed By: #### E RUR, UMICRO #### [facility] [address] [place] [address] Dr. Hardeep Rivera Neutrophils/100 WBC (Bld) 77.5 % Critically high 43.0-75.0 [facility] Comment on above: Performed By: #### E KATHRIN, UMICRO #### [facility] [address] [address] [address] Hardeep Rivera Platelet mean volume (Bld) [Entitic vol] 9.4 fL Critically low 9.5-13.5 [facility] Comment on above: Performed By: #### Deedee PINON, UMICRO #### [facility] [address] [address] [address] Hardeep Rivera PLT 200 103/ul Normal 150-450 [facility] Comment on above: Performed By: #### Deedee PINON, UMICRO #### [facility] [address] [place] [address] Dr. Hardeep Rivera RBC 4.59 106/ul Normal 4.20-5.40 [facility] Comment on above: Performed By: #### Deedee PINON, UMICRO #### [facility] [address] [place] [address] Dr. Hardeep Rivera WBC 6.4 103/ul Normal 4.0-11.0 [facility] Comment on above: Performed By: #### Deedee PINON, UMICRO #### [facility] [address] [place] [address] Dr. Hardeep Clark 08-02-2022 CNPN Telephone ([facility] SYLVIA HERRERA ([id number]) 1945 F Date Time Provider Department 08/02/22 [facility] During your visit today, we recorded [...] will be transferring her care. Loida Mathias APRN.ARMHOLE PRESSER August 07, 2022 10:27 AM Allergies As [...] mg by mouth three times daily. - crghkp-rzomshrw-betmy se (CREON) 24,000-76,000 -120,000 unit cpDR Take [...] Status:Closed by LINDEN WEEMS on 08/02/22 Normal [facility] PROF CHEM 8 (BAS METB)on Anion gap [Moles/Vol] 12.2 mmol/L Normal [facility] Comment on above: Performed By: #### RANDALL OLSON #### [facility] [address] [address] [address] Hardeep Rivera Calcium [Mass/Vol] 8.6 mg/dL Normal 8.5-10.1 [facility] Comment on above: Performed By: #### RANDALL OLSON #### [facility] [address] [id number] Hardeep Rivera Chloride [Moles/Vol] 98 mmol/L Normal 98-107 [facility] Comment on above: Performed By: #### RANDALL OLSON #### [facility] [address] [place] [address] Dr. Hardeep Rivera CO2 [Moles/Vol] 27.7 mmol/L Normal 21.0-32.0 [facility] Comment on above: Performed By: #### HARI OLSONRO #### [facility] [address] [place] [address] Dr. Hardeep Rivera Creatinine [Mass/Vol] 1.42 mg/dL Critically high 0.55-1.02 [facility] Comment on above: Performed By: #### HARI OLSONRO #### [facility] [address] [place] [address] Dr. Hardeep Rivera EGFR-AF SLOVENIAN 43 mL/min/1.73m2 Critically low >=60 [facility] Comment on above: Performed By: #### HARI OLSONRO #### [facility] [address] [place] [address] Dr. Hardeep Rivera EGFR-NON AF SLOVENIAN 36 mL/min/1.73m2 Critically low >=60 [facility] Comment on above: Performed By: #### RANDALL OLSON #### [facility] [address] [place] [address] Dr. Hardeep Rivera Glucose [Mass/Vol] 119 mg/dL Critically high 74-[address] [facility] Comment on above: Performed By: #### HARI OLSONRO #### [facility] [address] [place] [address] Dr. Hardeep Rivera Potassium [Moles/Vol] 3.9 mmol/L Normal 3.5-5.1 [facility] Comment on above: Performed By: #### HARI OLSONRO #### [facility] [address] [place] [address] Dr. Hardeep Rivera Sodium [Moles/Vol] 134 mmol/L Critically low 136-145 [facility] Comment on above: Performed By: #### HARI OLSONRO #### [facility] [address] [place], [place] [address] Dr. Hardeep Rivera Urea nitrogen [Mass/Vol] 21.0 mg/dL Critically high 7.0-18.0 [facility] Comment on above: Performed By: #### RANDALL OLSON #### [facility] [address] [place], [place] [address] Dr. Hardeep Rivera Urea nitrogen/Creatinine [Mass ratio] 14.8 mg/mg Normal [facility] Comment on above: Performed By: #### E RANDALL PINON #### [facility] [address] [place], [place] [address] Dr. Hardeep Rivera [facility] Tacrolimus (Bld) [Mass/Vol] 4.7 ng/mL Low 5.0-20.0 [facility] Comment on above: Order Comment: Speci men [...] Test performed by chemiluminescent immunoassay using [employer]. Performed By: #### 1 1253-2 ####[facility] LABCLIA [id number] [place] [address] [place] Giardia, Direct, EIAon 07-23 G. lamblia Ag IA Ql (Stl) Negative Invalid Interpretation Code Negative [facility] Comment on above: Result Comment: Perf ormed at: [facility] [address] [id number] PhD Sommer Davis Performed By: #### 4 [id number] ####[facility] [address] [place] [address] O & P EXAM, ROUTINE, REFLEXo n 07-23-2022 Ova and parasites identified Concentration Nom (Stl) Comment Invalid Interpretation Code [facility] Comment on above: Result Comment: No o va, cysts, or parasites seen. One negative specimen does not rule out the possibility of a parasitic infection. Performed at: [address] [id number] PhD Sommer Davis Performed By: #### 4 [id number] ####[address] [place] [address] O & P Exam, Routineon 2021 Ova and parasites identified LM Nom (Unsp spec) Final report Invalid Interpretation Code [facility] Comment on above: Result Comment: Thes e results were obtained using wet preparation(s) and trichrome stained smear. This test does not include testing for Cryptosporidium parvum, Cyclospora, or Microsporidia. Performed at: [address] [id number] PhD Sommer Davis Performed By: #### 4 [id number] ####[address] [place] [address] Consent for Procedure/Surger yon 07-19-2022 Consent for Procedure/Surgery [id number] #[id number]:127 Normal [facility] CMV IgMon 07-18-2022 CMV IgM IA Qn <30.0 Invalid Interpretation Code 0.0-29.9 [facility] Comment on above: Result Comment: Nega tive <30.0 Equivocal 30.0 - 34.9 Positive >34.9 A positive result is generally indicative of acute infection, reactivation or persistent IgM production. Performed at: [address] [id number] PhD Sommer Davis Performed By: #### 1 [id number] ####[facility] [address] [place] [address] Coding Summary.on 07-18-2022 Coding Summary. CD:[id number] G h0bWw+PGhlYWQ+SH9LUGR aN40vvWPmnG6CY0hJWV2M QTQGPFSWRY2XKX5ohHL9H RdwM6CmhcXa LwlmbAMxGK19FTk4AEL2f VfsNXkcpT4uxEKsZ3j9Tw MhYI40rX84XEdlHTFpIyY 3LjZpbjsgbWFy B6qxOhOydUExVpk+PHRhY mxlIHdpZHRoPScxMDAlJy ImeUwhPQ2uFx6zXPPyUNX vbGxhcHNlOiBj s6hdXWJpCKtcAK7kyBtbH 4MsxZS8WMWcf6d2Qn70dK I+CCYkIPQ8yWcmCFspn77 0XbMlb4rpSBZ8 wSPyQRrnCGD8C93xp4Y1P YKaZUQlYSZ8eUG0iE6jrD jsbttzE0ChwGNtQrL0RXG 3eDWbrA2rjIkm pjwfyK5kPbj+B66ABJ2VZ TXKNK2VIio5D2ChZscyeV I+FL66NHYcJE39vOFwbXY qc7fsdTt5OmMq YSFsSLL7tTbuVGdaq9QzD UCpA54joPNji6E9PRXvvU wcqETwPzEcyCE4hL9eOXv bpxvxo5bgoaqh Scnsr6pfmz49oX51X90rJ NpeRHBbWIK7CBViAMNkdZ twet3wnA2aNd9+ZAxhq7p fg9hxdLf3TlCz AWSypoPgaUmuOTA6a4TmZ j40E0YgxLkpr9RjFnk1ne 54tMIzj2Y5vDT9GWosWAK rxO1sRVdgQmC8 ELTnXiBqdH16dAXhSNzaY r4jnXijbOyxCJ9tTATdxw jwNEXbsE3xTPTtqYAetVp cYR1jJSOntbif y176GcUxCRI1OTLmrDAyF 3YtwP4mBrVyXVYhUICfZ2 JlhYSwAIjpJ532JPhxKmG 2VDKtfpElD1Bx NFLqhGojQqA6q5W4Cj8Yd 2PdxncwXPB6YEpwYKO3Up U5GzUpXgM4O1XgZnp5LQS xzBrsBB3jV9Rx GMOncyggmhxivTG0RSBuZ JFwyX32ySInOQjoXp8ou4 O6k645TXNdWVVxdI07Cc3 udDogMTBwdCBU fU4znqpdu9asllasCkDsT FRtPRa4QHc2NLZezAdpYo ThHIC7YwT3TFR7uJVrjJ3 fwBcytquutG3j Oyc+Q01cxU6iRQC4VBP1d jseLVYyrwLcWW23XP68R2 RyPjwvdGFibGU+PGRpdiB etDpnCO1yBgAd g6qpq7ElALfbB9QwYPLwO RegAbb1YZSgCML6vBG2oJ 7mGEPwTEjgq0K5dKJ0L5T utdApyy8im4yy UXXmBUesB65fzEEji0A5G ILlgJL4ORKpcOdvVnUkvF 93Oyc+VWEgaHmmj2KlEgn es4zvb1uouMh3 ReJvZUSyusEcnBapKCU0c 9SuIy62M71jZGpkRESkWJ MiDOAhUTHmvXbibe9prL8 wIi8+PGNvbCB3 mUC4eF4sYONpXqF4CRyiH 446EhSnwPTmXacjq1gyo4 kuvLo4AsPmTBRgflUssFu bMSY4u8BjFe75 R58eVOsmPKSkJXUqOSOeI KPnvGehzi4kmX9xWp9+PC 4en9lehz88aD44aFG+PHR jEKJ2gYviIDrw KTYpdV6uBZmrYeD8MPUzY lTmtA72pWJvIMkjJm8bjW luqJviXE1aTLJxuvggz30 1LbPzs0tkVJAm sEXdGPxuRNH3Q71pm8Y8L LQkSBUqOMR9rLT7cC6kcC lnbjogbGVmdDsgdmVydGl vMNgkFZtfT124 IHRvcDsnPlBhdGllbnQgT uAdCLc4X7AdQky8XTXvvG qiBX1emBKmHPmvAv8keXr uwAwyEB7lIAMi rczvp266EuWzq1haCKKuh STvNOnwXPT7M27fo1C2UA YjGEYtRJX2vYP0mE7ppQt nbjogbGVmdDsg vzUrcHjtUArdLUohU836B HRvcDsnPkJpcnRoIERhdG Q2YX97LG63mICjh5Q8gDL 7S9JlTDBponxz ghycaTL4LDIjUKPueE47B n9cbQttHe7eAMNpEFD2UI UaeWPqB3UmgS3sDaBeDXD gCHFrO6IziERh WHfwR810BMkaHeU3RMCux fUxG2ObBBThqFteRrV5t1 Y7Aw5CA6G6DH94WK23bNR va0O8xPU8I5Ib TOSgulcaccxuyRF8VKSlK MAceU72Cb2fmAfbMd6qNF JqAGS0CVKfePGoR1ObuA5 yOiAjMDAwMDAw G5ToiFOoDTadA744QOpxQ vW0WWIllaFzY4ZzWCJoqC mqQcM9h0V0Sh9PEHx1AT0 0KI80bAAxo2Q0 dJA4H4YgKIEgjmwftxrdh WU6HHXnAEMjtB90Ac6ipY qhHp2sNUWaSWN5XJYyrEY gK2MsbK0iJdCk FIKeHAIiD0AyhKGnPJbmX 812SEzuNeS6FTNkprBrQ5 VvJNVafYxkNeX6s0Q8Sb5 OXJOvVV14CTY7 qNV1EV00EE36F9TxThovv GFibGU+PHRhYmxlIHdpZH RoPScxMDAlJyBzdHlsZT0 mHh5fRTYbNYAb cEfxpRRgEeJkh6sqXEKpT ChzDQ0epGguZ9PzgDT5KA Rao7a9Wn35M98gA0NgkCX +YZYtdSA1iAJ9 zC8gOmXuWwU8UMqyK757Q mOznTTxCbaoj9uvl7cfdE k1GtT6BSOnicZshWcjBUN 9e3KzPv22G33e IHdpZHRoPSIxNSUiIHZhb Zpuxm8naJ2iKv2+PGNvbC G2kVC2hO2sRsBfLwO0LMf oW755CpOtxLQq Gmaor6jqs5xzdOl9LqRuE GKiheYrkGakTZE1w6NiGi 51Z6NvgMmjb8PuMdy4jy6 4tKBxe4Y4jXX7 U5MdWKRbiivxzRXuwVzbO V2tUAJzsadkABSbdC7rOR QiA9p3JqSaQcN4ESjwX3H kuyP2JTZinKAh KQrpYKZ2T31nz9W4NGAiP SZiDPQ4cMT7tI3ecAsvwu ogbGVmdDsgdmVydGljYWw oUMcjP049HUZi zMadVVVyoG6aNSJuwUTzf RhoEM1yHSMexhpuKaCOTw ZIXTCJKKlPZGBIZD57OL3 9uPHvr4C7wBH9 L9BaFLZybqkxgugxgSK2R VSyUYTlvO59bXDjNRewRg 7yw4A1u205HCPbDPYkgL2 4Hs5lzXasVSYe bBZEgV5nbuhcl3atnggdS bBvLIHvKLj4ZYw2HKZtzO feCzSfWFZ9NwT5DJL0zRN olI9cqUemqfvr yG0gZcn+DJSeVuBdBOb9Q TwvdGQ+GQGcZWU1mEtgVL nqWONxbK8bGMWdQ6t3MwI sMhI9LJmuA5Jv HUNtjlddRh89rB3iXfNuR rJ4JGenA5SdubW2PELrbI IxYFalIZX0Z44gb7K5FEQ rXZRiALI2tUQ6 iJ2fyCigzubneFQkzIwem eUtpYqoERjjTBtoW095PD PepQzxQhe8VKxjNLRlHF9 1RA83gPZng6M3 hSN0J1XgLLSzjbljknnsz BB9LPMiXPCfkA51zSNmWY biZt2sx9Z5m613AFRmKKR ciA22Rf4qsSxr WSEldVVXnM3mlmbym9fmm lfaNfChQXShCWx6PTs5LG EmcIsfTeVsXMU2BvX3AOR 7rPFtjB7yqVui nxlojX1xXda+RmVtYWxlP K35FW72vJCya2C4tAT1T9 YwHISulhlnorpcsYB3UNZ vNOLlwN76aAAf CPqnDu2vu8G6q457XVOtB GCjuW37Lg8mbErkYZOejV AKuD1yfoyvv7teymrgJbV kKBHhFCj8TQe8 WTCueVfbSoTmRPJ0PnV3Q CJ2cBPfxW6zfYeqhdiklO 9wOyc+P1C5qMU1xHCcnUz vdGQ+DO09wp49 H1JcOpfyYpv0XKGpENO4n OG8hV5rNSDeKJqcp9P6hD L9F5LywpEvdu9nn9eeXXN wQAjpF71hxWSy x0U4REUnvZZ3UYYflQsxC cWsrZ54Fdl+PGNvbGdyb3 JhCcjjw6htl8miuCa8NzC wJSIgdmFsaWdu ERA7l6XuXc53J70cCKnqT HRoPSIzMCUiIHZhbGlnbj 4tzO7jMc1+SLVflCI3dAE 5tE2xQtJiMqD2 XVflE404UyEcnCLoEjewf 8lmu8ielRr4NlFeWPRvfw JcdXdePBM5j0PnWl46D2Z mrNsig5YgTgj1 in95cOTvo2V7sFW6T9TiF MKggcpcvMBajDawWP6mDK QamyapVGYsxO4uDUMeD4o 1AoEnEmM9JOku A5FmriR6TJIfeNNpCJVoe QPRrR1mfrbmv3ryzejyTu HoOEQcNOe6HUr0SYYldQh xMoLxLLW0WwY2 RJL4mQOqzA7ikYqcqcjdq G9wOyc+UVd2x4vvfTQfAB 7yzDN8YJ39DT76zSNno7C 3tUN1N9ZcIGFt ykasrozhtTX8OBFgDFMfn H39Al7rwPdeZf2aZIZsRE G9TMOeyMRwB3JxwN6lUtW zSHOmSDDfO3Qe zOEdEKsnW403HCphReV6S EYrznDtF5KgBLKjiMhbRn P5e3Z7Un7SCG57QB04CZ8 0nXJnc3I7dEW8 I2LoMINunadjqynciTT8L WUiUDUwxS48Hp0guFeqQs 1lDUQlFRU9SMNqbTTgR7X yeZ9jTvTjDCJo KLMjE6KriSJgUNhkM053C FbsFjU2ISWihmKrF5TfGQ FvsJywMxF5h1M9Tn5SXa8 4WH96MQ51bYEn v0H2rTT1S0ZfYXApgyfnd gbonLQ9FBReJUXyvB90Vs 5wbVtgOy1aQFGrIPH2NQI ijMBiV5QvpO0k NoGhBKZeZNNdU4IjbLXnT JeqB896XHroRbK8OPJyby PtM9EvWTAgkEujChK8h2V 4Ad9UPHztgau6 K8QcKxhbdQI+YO60EGVxS Z08fRBzyACoh6omjAq0Kj MkRRIcIBB8sKncMKcrw6N sPYStC45fmIUz c2U6 (more content not included)... Normal [facility] Coding Summary. CD:[id number]:[id number] G h0bWw+PGhlYWQ+UF5NJFL zJ63jdUAfbO5AQ1lTNY2A CJCEGBJKWY1TFY2vbOJ1O XyhL9AyazRw DiiwvETaNN57ULg2GRZ1w XubSVbpcB5ugRDgG1q4Nr NqCO88pR55LFmrXCGbMuR 3LjZpbjsgbWFy Q6hjTiZslFSwYxk+PHRhY mxlIHdpZHRoPScxMDAlJy GqsYfdON6sHm0mJHExOTB vbGxhcHNlOiBj e4oeDARcGZdyKT8ioZlkA 9TmeQY9OAJog7c3Nl42fU I+HBWdING6kGmpIYgpm48 9EnJyo7xlCUD7 vJAvUVcgGSJ0Z08lm3S9A BQzSZSlTMP0dRC6cO0auI qiogarY3IfpNPlMuS1VTH 4lOGwvK7xyUfp yteqlA7fDzp+H32DZN4KE AOPCA9RYfz9D4NoYimxhT I+WN71KETbEO65oKTizKT vo6zwaCw1UdVl WIDjUNU3rGoqJUkbg1JxO SQiD05jgDEny9F6ZELoaL liaRSjRtVteQO7bJ8qZOp dtblxl3gdivlf Gnxui9vtce57pN13P66iZ YzvCMNvTUW9NTLxKMClvZ czrh6vmT0wVl0+FWrkd4f zr0uvlUv5TgHh FEGjstOthIjhGKY5l1YvX t91Z7YgbRrjw4RkJfk1xz 15zFOij3Y5eRP9QAkgBJL sqS2sCVpcPeB4 FCNnZrJtsB88wAXsXAbbO x5kwZvmuRtzJD9zLXPmtm lvKHNxkS6yRXQldKBizEa kVM8sEMXshitr g602ErFdDMG4IKCyoWGnH 8GrjX7oCjVhWUPtDHGkG7 PeySKgHNpsF635AIabMfN 1FQSuklIvZ1Nc EXKjtTshKnG3w8Y4Gw2Dv 4EjablhVPE6ZTgjOEM5Pc K1PkZqRaX7W2JdNmw2WTG qrVobSG4cE0Fn WTSwqelutxhjnUK9PZInG ZYlnX17bXCjPNlaEw5se5 L9q590YAXfZQRuvC50Ln3 udDogMTBwdCBU pP4gncaco8mafrylCwToF IDySNu6LWs6JYRudWauZi EsVJD2RdB3RSB8wGOynM1 euZymjgpznE9w Oyc+E52zlB3oUCY3USH5c lfcLVLzrsTjCC20JK16X8 RyPjwvdGFibGU+PGRpdiB onGhcVL1qVjLd j5jpq7VkNVctZ3XtUQUzH ZyeEqu8HBAaWBL7sUV9rU 3vNDTvBWzae8D3lDG4O5S mecPard7dy1vg RSEuMSsxQ67wfNGwa2U6Q STzyJA7YENuiUctUpIerV 93Oyc+KMEbdYeep1HzZob bv5hgv8bpnMl4 GaHiBCIwffAuwOhiURH3h 1OzEy86S95mIChuDSGzZN KpTXZpOKIzxRamei7xfD2 wIi8+PGNvbCB3 mKY8xN4eOKAhZbD9KGxoH 766PtHsjTNnWypva7vdy4 dxgOj9RzObFWOzhiXxgQu rIZZ1a8LrLz70 B73gWKsjLGIpYLAjEMLyZ YYrzZmtyb7fzV4fIm6+PC 5nf6yxbs27uB58yBI+PHR yUWM8rLnwFYyh UXPkrR7pNRufLxD2VLZyN dXsuA31kLVuBGjjBw3rfW okqZutCU2zOXBwsxqln27 6LfWmg2gfIVKo sTSwFDdjSLU0X27mp8E0S XEvYVIrRUX3gVE5vM2qrP lnbjogbGVmdDsgdmVydGl yEKpsGQcjG224 IHRvcDsnPlBhdGllbnQgT eTeSUz3S5JoXxw2EIKmfH bdIW4hmKEhMItzKy2esFk bzSfbBD5fWZQf szaje255GtUzb7zrRMQje MFgWUseESH1M59ku1J5CK BlMVWaOPR3eWD2jO3mqGq nbjogbGVmdDsg vePenQhsSCdiKLbfO942B HRvcDsnPkJpcnRoIERhdG T2VP65UM16uRRgb8X8bAD 3Z3CmZMGurwas zxtqpEH7GDUdZKVidP95L d3zsKbrJv2aXXKrPJS9NF XoiLNmZ4BmbI7iPjSzFSR jLGZsZ5MfzRIg FOhnX546NBhjUuB0PSRqb wTfE1DbKPKpsNncIrG0k7 U0Vh6JE9F6NE32WJ02fGJ dr0Z4dDK6J4Iy IKQchotmwegvkJI1FCAuR GBkbG89Aq8iyRfxFy5cFW JuBVR4HOLpbNDaK9EvwU7 yOiAjMDAwMDAw V1HulDYlULvsY836ODbhC yF6TBYdsrFfQ4NbBJQvpF lxEvV7d7C5Yx5NSWs1WH0 9YM00sNUiz9G6 aDI4D1HoXTZgbzuotloey VT9BZAzFALlaI77Xo5ozY mvSk2zLMSeMIF1CTPfoWX lU7ZyoT9iDvRu RWGtSLCfB2CmmFHyTIdcN 428UJauDcL6NGOynsFcP1 VrLHEnbAtvBnH2w7P1Kt3 XBXAuRK61AAY0 zYR7ZC13EK18X8WpNevsj GFibGU+PHRhYmxlIHdpZH RoPScxMDAlJyBzdHlsZT0 kPf7aZANcFRGu wFghhOWxQuTvq3wpXOUaH XipOV6nmGqcG1IdpCA3NA Hon4q3Op45M50qK4FtoCU +GFAjxHE5zAP0 nJ6kKtQaZcM0YGntG297L wInrNVnSjswg4ked6fwoK g0QjJ7IDXlasFilEnxKDY 9j3AqPu39O29r IHdpZHRoPSIxNSUiIHZhb Afqqy1ueF8kGj7+PGNvbC L0oTW8oR5nVcJpJrU6IVb gW193WoEvcJMb Sxhdi4eny3izmNs7GgEiB BLqyaZdyVtaXAV4w1TiDn 48N8VhrEudm6SwWuw1lb1 7iHEna9A7jGJ2 L9ZsPEHaxemrhVYnfHmiD X4wLPGaglliTXGkiP5eHV IdM7p2MyNiWjU6WYchY3V fyaE7NIOihBUh MYreTLQ4S24ws9Z7LBKwO NNlAME2uPM8eI2svZskgg ogbGVmdDsgdmVydGljYWw aHQiuO055YKRc rNedSFDikC9rYGAjgPQbf JkgNN0dGOVlgbssHoVEZi ZVGKUDNXkZIUAJEP60SF9 3pAYqs3L7eJM8 K9CkAZPjtzdwnmbrpFZ3I NEzVSOwmT46qDApUBlbKk 8yn9Z5p809OACiIKJyrN2 6Kr8dcTlwEOBw eGPKnC4tapwei6nvfgbsI nIfZJNiMXu0ZAn3FWTsiJ egOgPoDLB0YkT8RTG4sNS wvC3eeAkfrmla aX8wGov+NIRnMaEcSHb2B TwvdGQ+FWWtRSW0qHznLD seIISdgU6nVOIxA8k5UrD iMmM5LIrkC0Lf UOUpznvtGq42zF3qCcKtU yX3OBerB4GckqU3DVDhpR EaTNpfYXU9Y20ap7A4DGM nGVRcXXC4bBW1 nR9sjRdtwkeqsEZjjRsco dMllRdtXRbsLLsbI682GD DfxWciFbc8JOgvJKBuIM2 2WR02kCLib7P4 vDV2F7YhJHAjgnclocaps PG8STSzZLYdcF92wLMaHB jwGk7py6Q7r671DLQrKRX fkA10Zj5sqOyj GBWdiIZVsU7ceebtv3tsn dwlXrSjUYMjBLp7DYn1JE JoiWomCoXtAOJ4HsO8XGB 0xIVqyR3ilKid pxfayZ3iLpv+RmVtYWxlP V40OZ18nNIqx0Q2fUO3G1 FiOQAmhbnizelfzKQ5GYP zMXZsyG49nTDo QXulMc1ff3N1y841DBYmL GZprS53Sd4qtUssUTOmcH IZoC8uycqba6ofdtcxKcU gDRPvHIr5EOp3 KIRzlFshIgUiRAG1FcT5X UX0gBTigW7lrVimzzhogC 9wOyc+PWKkAJSir1Iww2K mUL11MW23U4Ej PjwvdGFibGU+PHRhYmxlI HdpZHRoPScxMDAlJyBzdH tyBB2vHq6aDBQnFLWfqQa moMGjGbRqz6oz FLDfEJdcGN6itEcwC5Kjg SA2AILyq8a3Mu44U46uV9 JvdXA+VJMysXC7sJS8iQ4 cIrEsUeM3GFap G254OkBksUYaXvpzr9kuf 2uwyUv5LpRcJBCmpbVhyS koYLT9d4BlXw70P80aDPa pZHRoPSIyMCUi LVYdiHqlsv4beC4gYv3+P BNrbMF9pQF9lU0uVsCkPf O7OFipS864AhGseUUeQns zY86aM7NgsDX+ NZIxPgc3ZXEqjOolUN8jn WYcTKkiGe8xIIJ1HyXzOz NwEYadN0HvBQJstwddvhc duAD0YBLvRKQm gP88Sk3xjOlpLc5tSFYnQ BR8KMDbtMFrF0UmsE6fKk CyAETeRZDmK6TujDEhSZh cV885SPppXfF9 ANQfsxRfM9LpOZQzjOteT rO9t8H5Re0PxBivlODuDP 0hVnDlOLj6F0ZqFkt7CLH ngFctZH9aoOEo JVakZj8pzCybiJniEF5vL VYqzpaac463WdByj7tpWW VhxDVgETykVCZ6L73yw7K 2YSKzZZLhGHV6 uFY0aZ8dqKqlswuhoJUbr DsgdmVydGljYWwtYWxpZ2 88GJDgoWefWcIVHzi4Q0L sZhk9VZSwwGxr GH5hwBDkEDpqSu1cbKoww IxyVB0vLJWpvlhzy898Xe Avx8eqJAZkiAMxISsuDSB 0M17hg1H4OWTv ZWAxEMA7aWR6hI1lwSddb jogbGVmdDsgdmVydGljYW ngTFxxO014OVBjbZtvKh1 YOjt4D6SvWqu4 OFJooJhoGV5igTLpYWdkC u0agYzwcLktWE8pFYVpth pcw257UaSym0cqLPGpcLA aDUrpAMK4V10y n3H5KDWiSWIiTJP8iHW2c X8rbRzqfveocXSsqOyhmz YgiGnsJXnlCVvmQ698ENX vcDsnPlBheWVy OjwvdGQ+UE60lz73Q5KoJ fswGiv9VYWfBUG2dAY0zU 1gCKExZXwra1B6rKM2R8U qezOpjn4qg2xs YXBz (more content not included)... Normal [facility] Enteric Panel by PCRon 07-18 C. coli+jejuni+upsaliensi s DNA ULICES+non-probe Ql (Stl) Not detected Normal [facility] Comment on above: Result Comment: Test ing was performed utilizing reverse coremaker apprentice (RT), polymerase chain reaction (PCR), and array [...] nulcleic acid test. Performed By: #### 4 [id number], [id number], [id number], [id number], [id number], [id number] ####[facility] [address] [place] [address] E. coli stx1+stx2 genes ULICES+non-probe Ql (Stl) Negative Normal [facility] Comment on above: Performed By: #### 4 [id number], [id number], [id number], [id number], [id number] ####[facility] [address] [place] [address] Enteric Panel by PCR Negative Normal [facility] Enteric Panel Intrl QC Pass Normal [facility] Comment on above: Result Comment: Test ing was performed utilizing reverse coremaker apprentice (RT), polymerase chain reaction (PCR), and array [...] 1 and 2. Performed By: #### 4 [id number], [id number], [id number], [id number], [id number], [id number] ####[facility] [address] [place] [address] Norovirus genogroup I+II RNA ULICES+non-probe Ql (Stl) Detected Abnormal [facility] Comment on above: Result Comment: Resu lts Called To [place] for Dr. Jama By [facility] And Read Back For Confirmation On 07/18/2022 08:49:23 EDT. Performed By: #### 4 [id number], [id number], [id number], [id number], [id number], [id number] ####[facility] [address] [place] [address] Rotavirus A RNA ULICES+non-probe Ql (Stl) Not detected Normal [facility] Comment on above: Performed By: #### 4 [id number], [id number], [id number], [id number], [id number], [id number] ####[facility] [address] [place] [address] S. enterica+bongori DNA ULICES+non-probe Ql (Stl) Not detected Normal [facility] Comment on above: Result Comment: This test result should be correlated with clinical presentations and medical history by a healthcare provider to determine its clinical significance. Performed By: #### 4 [id number], [id number], [id number], [id number], [id number], [id number] ####[id number] [place] [address] Shigella species+EIEC invasion plasmid antigen H ipaH gene ULICES+non-probe Ql (Stl) Not detected Normal [facility] Comment on above: Performed By: #### 4 [id number], [id number], [id number], [id number], [id number], [id number] ####[facility] [address] [place] [address] V. cholerae+parahaemolyti cus+vulnificus DNA ULICES+non-probe Ql (Stl) Not detected Normal [facility] Comment on above: Performed By: #### 4 [id number], [id number], [id number], [id number], [id number], [id number] ####[address] [place] [address] Y. enterocolitica DNA ULICES+non-probe Ql (Stl) Not detected Normal [facility] Comment on above: Performed By: #### 4 [id number], [id number], [id number], [id number], [id number], [id number] ####[facility] [address] [place] [address] C. diff by PCRon 07-17-2022 Clostridium difficile by PCR see comment Invalid Interpretation Code [facility] Comment on above: Result Comment: Unab [...] its clinical significance. Performed By: #### 4 [id number], [id number], [id number], [id number], [id number], [id number] ####[facility] [id number] [place] [address] Fecal WBC Lactoferrinon 07-02 Fecal WBC Lactoferrin Positive Abnormal Negative [facility] Comment on above: Result Comment: The semi-quantitative detection of elevated levels of fecal lactoferrin is a marker for fecal leukocytes and an indication of intestinal inflammation. Performed By: #### 4 [id number], [id number], [id number], [id number], [id number] ####[facility] [address] [place] [address] Consent for Treatmenton 07-02 Consent for Treatment [id number]:127 Normal [facility] Gastroenterology Office/Clin ic Noteon 07-15-2022 Gastroenterology Office/Clinic Note Chief Complaint f/u ER- abd pain, diarrhea and vomiting HPI Staff This is a 76 year old female who presents today for a referral by Sue for abnormal radiology testing. Patient seen in [facility] 01/2022 for complaints of diarrhea, abdominal pain and nausea.- CT and labs completed History of Present Illness Sylvia presents today for abdominal pain, diarrhea, and vomiting. She was recently seen in the [facility] emergency room with abdominal pain, diarrhea, and vomiting. She notes that she had a heart transplant in [place] in 2017. Afterwards she experienced diarrhea which [...] She was prescribed Creon 24 mg at [facility] in 2017, due to being diagnosed with [...] patient had a recent CT scan at [facility] that showed a small lesion [...] by h (more content not included)... Normal [facility] Comment on above: Result Comment: Elec [...] Pancreatic insufficiency Pancreatic lesion Valvular heart disease [facility] SYLVIA HERRERA ([id number]) 1945 F Date Time Provider Department 07/05/22 SHO CROWLEY [facility] During your visit today, we recorded [...] another team. Sho Crowley APRN, ODETTE Pager: [phone] July 05, 2022 10:42 AM Post Heart [...] transplant. No Dr Caldera: Rfl: TACROLIMUS/FK-506 BL [[id number]] Order #: [id number] FUTURE Prescriptions as of 07/05/2022 - tacrolimus [...] mg by mouth three times daily. - azjqde-gfrzdsuu-tfvbt se (CREON) 24,000-76,000 -120,000 unit cpDR Take [...] 09/02/2019 A (more content not included)... Normal [facility] BOX TEST SENT OUTon 07-03-20 22 SENT TO REF LAB 07/03/2022 Normal [facility] Comment on above: Performed By: #### E RANDALL PINON #### [facility] [address] [place] [address] Dr. Hardeep Rivera CBC AUTO DIFFon 07-03-2022 BASO # 0.0 103/ul Normal 0.0-0.1 [facility] Comment on above: Performed By: #### C BC #### [facility] [address] [place] [address] Dr. Hardeep Rivera Basophils/100 WBC (Bld) 0.3 % Normal 0.2-2.0 [facility] Comment on above: Performed By: #### C BC #### [facility] [address] [place] [address] Dr. Hardeep Rivera EO # 0.1 103/ul Normal 0.0-0.7 [facility] Comment on above: Performed By: #### C BC #### [facility] [address] [place] [address] Dr. Hardeep Rivera Eosinophils/100 WBC (Bld) 0.9 % Normal 0.9-7.0 [facility] Comment on above: Performed By: #### C BC #### [facility] [address] [place] [address] Dr. Hardeep Rivera Erythrocyte distribution width (RBC) [Ratio] 12.2 % Normal 11.0-15.0 [facility] Comment on above: Performed By: #### C BC #### [facility] [address] [place] [address] Dr. Hardeep Rivera Hematocrit (Bld) [Volume fraction] 42.3 % Normal 36.0-48.0 [facility] Comment on above: Performed By: #### C BC #### [facility] [address] [place] [address] Dr. Hardeep Rivera Hemoglobin (Bld) [Mass/Vol] 14.0 g/dL Normal 12.0-16.0 [facility] Comment on above: Performed By: #### C BC #### [facility] [address] [place] [address] Dr. Hardeep Rivera IG # 0.04 10e3/ul Critically high 0.00-0.03 [facility] Comment on above: Performed By: #### C BC #### [facility] [address] [place] [address] Dr. Hardeep Rivera IG % 0.5 % Normal 0.0-0.5 [facility] Comment on above: Performed By: #### C BC #### [facility] [address] [place] [address] Dr. Hardeep Rivera LYMPH # 0.8 103/ul Critically low 1.2-3.8 [facility] Comment on above: Performed By: #### C BC #### [facility] [address] [address] [address] Hardeep Rivera Lymphocytes/100 WBC (Bld) 10.9 % Critically low 20.5-60.0 [facility] Comment on above: Performed By: #### C BC #### [facility] [address] [place] [address] Dr. Hardeep Rivera MANUAL DIFF REQ NO Normal [facility] Comment on above: Performed By: #### C BC #### [facility] [address] [place] [address] Dr. Hardeep Rivera MCH (RBC) [Entitic mass] 29.7 pg Normal 26.7-34.0 [facility] Comment on above: Performed By: #### C BC #### [facility] [address] [place] [address] Dr. Hardeep Rivera MCHC (RBC) [Mass/Vol] 33.1 g/dL Normal 29.9-35.2 [facility] Comment on above: Performed By: #### C BC #### [facility] [address] [place] [address] Dr. Hardeep Rivera MCV (RBC) [Entitic vol] 89.8 fL Normal 81.0-99.0 [facility] Comment on above: Performed By: #### C BC #### [facility] [address] [place] [address] Dr. Hardeep Rivera MONO # 0.9 103/ul Critically high 0.3-0.8 [facility] Comment on above: Performed By: #### C BC #### [facility] [address] [place] [address] Dr. Hardeep Rivera Monocytes/100 WBC (Bld) 11.1 % Normal 1.7-12.0 [facility] Comment on above: Performed By: #### C BC #### [facility] [address] [place] [address] Dr. Hardeep Rivera NEUT # 5.8 103/ul Normal 1.4-6.5 [facility] Comment on above: Performed By: #### C BC #### [facility] [address] [address] [address] Hardeep Rivera Neutrophils/100 WBC (Bld) 76.3 % Critically high 43.0-75.0 [facility] Comment on above: Performed By: #### C BC #### [facility] [address] [address] [address] Hardeep Rivera Platelet mean volume (Bld) [Entitic vol] 9.5 fL Normal 9.5-13.5 [facility] Comment on above: Performed By: #### C BC #### [facility] [address] [address] [address] Hardeep Rivera PLT 191 103/ul Normal 150-450 [facility] Comment on above: Performed By: #### C BC #### [facility] [address] [place] [address] Dr. Hardeep Rivera RBC 4.71 106/ul Normal 4.20-5.40 [facility] Comment on above: Performed By: #### C BC #### [facility] [address] [place] [address] Dr. Hardeep Rivera WBC 7.6 103/ul Normal 4.0-11.0 [facility] Comment on above: Performed By: #### C BC #### [facility] [address] [place] [address] Dr. Hardeep Clark 07-03-2022 CNPN Telephone (JULIAN [facility]) SYLVIA HERRERA ([id number]) 1945 F Date Time Provider Department 07/03/22 SOY MCACNN [facility] During your visit today, we recorded the following information about you: Linden Faustina 07/03/2022 1:02 PM Signed Patient had labs drawn 07/03/22, uploaded to [facility]. Allergies As of Date: 07/03/2022 Noted [...] mg by mouth three times daily. - caoues-gvxbarbk-zmebe se (CREON) 24,000-76,000 -120,000 unit cpDR Take [...] Status:Closed by LINDEN WEEMS on 07/03/22 Normal [facility] PROF CHEM 8 (BAS METB)on Anion gap [Moles/Vol] 12.9 mmol/L Normal [facility] Comment on above: Performed By: #### Deedee PINON UMICRO #### [facility] [address] [address] [address] Hardeep Rivera Calcium [Mass/Vol] 9.0 mg/dL Normal 8.5-10.1 [facility] Comment on above: Performed By: #### Deedee PINON UMICRO #### [facility] [address] [address] [address] Hardeep Rivera Chloride [Moles/Vol] 98 mmol/L Normal 98-107 [facility] Comment on above: Performed By: #### Deedee PINON UMICRO #### [facility] [address] [address] [address] Hardeep Rivera CO2 [Moles/Vol] 28.1 mmol/L Normal 21.0-32.0 [facility] Comment on above: Performed By: #### Deedee PINON UMICRO #### [facility] [address] [address] [address] Hardeep Rivera Creatinine [Mass/Vol] 1.64 mg/dL Critically high 0.55-1.02 [facility] Comment on above: Performed By: #### RANDALL OLSON #### [facility] [address] [place] [address] Dr. Hardeep Rivera EGFR-AF SLOVENIAN 37 mL/min/1.73m2 Critically low >=60 [facility] Comment on above: Performed By: #### RANDALL OLSON #### [facility] [address] [place] [address] Dr. Hardeep Rivera EGFR-NON AF SLOVENIAN 30 mL/min/1.73m2 Critically low >=60 [facility] Comment on above: Performed By: #### RANDALL OLSON #### [facility] [address] [place] [address] Dr. Hardeep Rivera Glucose [Mass/Vol] 114 mg/dL Critically high 74-106 [facility] Comment on above: Performed By: #### HARI OLSONRO #### [facility] [address] [place] [address] Dr. Hardeep Rivera Potassium [Moles/Vol] 4.0 mmol/L Normal 3.5-5.1 [facility] Comment on above: Performed By: #### RANDALL OLSON #### [facility] [address] [place] [address] Dr. Hardeep Rivera Sodium [Moles/Vol] 135 mmol/L Critically low 136-145 Th [facility] Comment on above: Performed By: #### HARI OLSONRO #### [facility] [address] [place] [address] Dr. Hardeep Rivera Urea nitrogen [Mass/Vol] 24.0 mg/dL Critically high 7.0-18.0 [facility] Comment on above: Performed By: #### HARI OLSONRO #### [facility] [address] [place] [address] Dr. Hardeep Rivera Urea nitrogen/Creatinine [Mass ratio] 14.6 mg/mg Normal [facility] Comment on above: Performed By: #### HARI OLSONRO #### [facility] [id number] Hardeep Rivera Tacrolimus Bld-ncon 2021 Tacrolimus (Bld) [Mass/Vol] 12.4 ng/mL Normal 5.0-20.0 [facility] Comment on above: Order Comment: Speci men [...] situation. Test performed by chemiluminescent immunoassay using [employer]. Performed By: #### 1 [id number] ####[facility] LABCLIA [id number] [place] [address] [place] MG MAMM SCREEN 3D TRISHA CADon 05-28-2022 MG MAMM SCREEN 3D TRISHA CAD Patient: SYLVIA HERRERA Exam Date: 05/28/2022 : 1945 Gender:F Ordering : DR TAO ROONEY . Admission #: [id number] Family : Order #: [id number] CLICK HERE TO VIEW EXAM RADIOLOGY REPORT [...] Treatments None Family Cancers None LOCATION: [facility] BREAST COMPOSITION: Heterogeneously dense,which may [...] Ibrahim MD on 05/28/2022 at 10:20 Normal [facility] Physician Referralon 022 Physician Referral [id number] .[id number]:127 [facility] (CARD [facility] SYLVIA HERRERA ([id number]) 1945 F Date Time Provider Department 05/08/22 LOIDA MATHIAS [facility] During your visit today, we recorded the following information about you: Linden Faustina 05/08/2022 11:50 AM Signed Patient had labs drawn 05/07/22, uploaded to scanned docs. Linden Weems Administrative Vocational Counselor Loida Mathias APRN.CNP 05/08/2022 3:21 PM Signed [...] transplant. No Dr Ellerp: Rfl: TACROLIMUS/FK-506 BL [[id number]] Order #: [id number] FUTURE Prescriptions as of 05/08/2022 - tacrolimus [...] mg by mouth three times daily. - hzvrmj-jxeiybvk-soyhn se (CREON) 24,000-76,000 -120,000 unit cpDR Take [...] 05/19/2014 [facility] (more content not included)... Normal [facility] BOX TEST SENT OUTon 05-07-20 22 SENT TO REF LAB 05/07/2022 Normal [facility] Comment on above: Performed By: #### HARI OLSONRO #### [facility] [address] [place] [address] Dr. Hardeep Rivera CBC AUTO DIFFon 05-07-2022 BASO # 0.0 103/ul Normal 0.0-0.1 [facility] Comment on above: Performed By: #### Deedee PINON UMICRO #### [facility] [address] [place] [address] Dr. Hardeep Rivera Basophils/100 WBC (Bld) 0.4 % Normal 0.2-2.0 [facility] Comment on above: Performed By: #### Deedee PINON UMICRO #### [facility] [address] [place] [address] Dr. Hardeep Rivera EO # 0.1 103/ul Normal 0.0-0.7 [facility] Comment on above: Performed By: #### Deedee PINON UMICRO #### [facility] [address] [place] [address] Dr. Hardeep Rivera Eosinophils/100 WBC (Bld) 1.0 % Normal 0.9-7.0 [facility] Comment on above: Performed By: #### Deedee PINON, UMICRO #### [facility] [address] [place] [address] Dr. Hardeep Rivera Erythrocyte distribution width (RBC) [Ratio] 12.6 % Normal 11.0-15.0 [facility] Comment on above: Performed By: #### RANDALL OLSON #### [facility] [address] [place] [address] Dr. Hardeep Rivera Hematocrit (Bld) [Volume fraction] 44.0 % Normal 36.0-48.0 [facility] Comment on above: Performed By: #### HARI OLSONRO #### [facility] [address] [place] [address] Dr. Hardeep Rivera Hemoglobin (Bld) [Mass/Vol] 14.0 g/dL Normal 12.0-16.0 [facility] Comment on above: Performed By: #### HARI OLSONRO #### [facility] [address] [place] [address] Dr. Hardeep Rivera IG # 0.02 10e3/ul Normal 0.00-0.03 [facility] Comment on above: Performed By: #### HARI OLSONRO #### [facility] [address] [place] [address] Dr. Hardeep Rivera IG % 0.3 % Normal 0.0-0.5 [facility] Comment on above: Performed By: #### RANDALL OLSON #### [facility] [address] [place] [address] Dr. Hardeep Rivera LYMPH # 0.6 103/ul Critically low 1.2-3.8 [facility] Comment on above: Performed By: #### HARI OLSONRO #### [facility] [address] [place] [address] Dr. Hardeep Rivera Lymphocytes/100 WBC (Bld) 8.2 % Critically low 20.5-60.0 [facility] Comment on above: Performed By: #### HARI OLSONRO #### [facility] [address] [place] [address] Dr. Hardeep Rivera MANUAL DIFF REQ NO Normal [facility] Comment on above: Performed By: #### HARI OLSONRO #### [facility] [address] [place] [address] Dr. Hardeep Rivera MCH (RBC) [Entitic mass] 29.4 pg Normal 26.7-34.0 [facility] Comment on above: Performed By: #### Deedee PINON, UMICRO #### [facility] [address] [place] [address] Dr. Hardeep Rivera MCHC (RBC) [Mass/Vol] 31.8 g/dL Normal 29.9-35.2 [facility] Comment on above: Performed By: #### E KATHRIN, UMICRO #### [facility] [address] [place] [address] Dr. Hardeep Rivera MCV (RBC) [Entitic vol] 92.2 fL Normal 81.0-99.0 [facility] Comment on above: Performed By: #### Deedee PNION, UMICRO #### [facility] [address] [place] [address] Dr. Hardeep Rivera MONO # 0.8 103/ul Normal 0.3-0.8 [facility] Comment on above: Performed By: #### Deedee PINON, UMICRO #### [facility] [address] [place] [address] Dr. Hardeep Rivera Monocytes/100 WBC (Bld) 9.6 % Normal 1.7-12.0 [facility] Comment on above: Performed By: #### Deedee PINON, UMICRO #### [facility] [address] [place] [address] Dr. Hardeep Rivera NEUT # 6.3 103/ul Normal 1.4-6.5 [facility] Comment on above: Performed By: #### E KATHRIN, UMICRO #### [facility] [address] [place] [address] Dr. Hardeep Rivera Neutrophils/100 WBC (Bld) 80.5 % Critically high 43.0-75.0 [facility] Comment on above: Performed By: #### E KATHRIN, UMICRO #### [facility] [address] [place] [address] Dr. Hardeep Rivera Platelet mean volume (Bld) [Entitic vol] 10.1 fL Normal 9.5-13.5 [facility] Comment on above: Performed By: #### HARI OLSONRO #### [facility] [address] [place] [address] Dr. Hardeep Rivera PLT 188 103/ul Normal 150-450 [facility] Comment on above: Performed By: #### HARI OLSONRO #### [facility] [address] [place] [address] Dr. Hardeep Rivera RBC 4.77 106/ul Normal 4.20-5.40 [facility] Comment on above: Performed By: #### HARI OLSONRO #### [facility] [address] [place] [address] Dr. Hardeep Rivera WBC 7.8 103/ul Normal 4.0-11.0 [facility] Comment on above: Performed By: #### HARI OLSONRO #### [facility] [address] [place] [address] Dr. Hardeep Rivera PROF CHEM 8 (BAS METB)on Anion gap [Moles/Vol] 11.9 mmol/L Normal [facility] Comment on above: Performed By: #### RANDALL OLSON #### [facility] [address] [place] [address] Dr. Hardeep Rivera Calcium [Mass/Vol] 8.7 mg/dL Normal 8.5-10.1 [facility] Comment on above: Performed By: #### HARI OLSONRO #### [facility] [address] [place] [address] Dr. Hardeep Rivera Chloride [Moles/Vol] 99 mmol/L Normal 98-107 [facility] Comment on above: Performed By: #### HARI OLSONRO #### [facility] [address] [place] [address] Dr. Hardeep Rivera CO2 [Moles/Vol] 27.1 mmol/L Normal 21.0-32.0 [facility] Comment on above: Performed By: #### HARI OLSONRO #### [facility] [address] [address] [address] Hardeep Rievra Creatinine [Mass/Vol] 1.62 mg/dL Critically high 0.55-1.02 [facility] Comment on above: Performed By: #### HARI OLSONRO #### [facility] [address] [address] [address] Hardeep Rivera EGFR-AF SLOVENIAN 37 mL/min/1.73m2 Critically low >=60 [facility] Comment on above: Performed By: #### Deedee PINON UMICRO #### [facility] [address] [address] [address] Hardeep Rivera EGFR-NON AF SLOVENIAN 31 mL/min/1.73m2 Critically low >=60 [facility] Comment on above: Performed By: #### Deedee PINON UMICRO #### [facility] [address] [place] [address] Dr. Hardeep Rivera Glucose [Mass/Vol] 73 mg/dL Critically low 74-106 Th [facility] Comment on above: Performed By: #### Deedee PINON UMICRO #### [facility] [address] [address] [address] Hardeep Rivera Potassium [Moles/Vol] 4.0 mmol/L Normal 3.5-5.1 [facility] Comment on above: Performed By: #### Deedee PINON UMICRO #### [facility] [address] [address] [address] Hardeep Rivera Sodium [Moles/Vol] 134 mmol/L Critically low 136-145 Th [facility] Comment on above: Performed By: #### Deedee PINON UMICRO #### [facility] [address] [address] [address] Hardeep Rivera Urea nitrogen [Mass/Vol] 33.0 mg/dL Critically high 7.0-18.0 [facility] Comment on above: Performed By: #### Deedee PINON UMICRO #### [facility] [address] [address] [address] Hardeep Rivera Urea nitrogen/Creatinine [Mass ratio] 20.4 mg/mg Normal [facility] Comment on above: Performed By: #### E RANDALL PINON #### [facility] [address] [address] [address] Hardeep Rivera TACROLIMUS/FK-506 BLoneri 05-07 Tacrolimus (Bld) [Mass/Vol] 3.4 ng/mL Low 5.0-20.0 [facility] Comment on above: Order Comment: Speci men [...] Test performed by chemiluminescent immunoassay using [employer]. Performed By: #### F K506 ####[facility] LABCLIA [id number] [address] [facility] 05-[facility]-2022 CNPN Telephone ([facility]) SYLVIA HERRERA ([id number]) 1945 F Date Time Provider Department 05/03/22 SHO CROWLEY [facility] During your visit today, we recorded the following information about you: Sho Crowley APRN.ARMHOLE PRESSER 05/03/2022 2:58 PM Signed received phone call from [facility] requesting patient's Tacrolimus levels from 04/24. Faxed results to [phone]. Allergies As of Date: 05/03/2022 Noted Allergy [...] mg by mouth three times daily. - gtsjvf-ulotqrta-dxyrg se (CREON) 24,000-76,000 -120,000 unit cpDR Take [...] Status:Closed by SHO CROWLEY on 05/03/[address] [facility] BOX TEST SENT OUTon 04-24-20 SENT TO REF LAB 04/24/2022 Normal [facility] Comment on above: Performed By: #### RANDALL OLSON #### [facility] [address] [place] [address] Dr. Hardeep Rivera [facility] 04-24-2022 CNPN Telephone (CARD [facility]) SYLVIA HERRERA ([id number]) 1945 F Date Time Provider Department 04/24/22 LOIDA MATHIAS [facility] During your visit today, we recorded the following information about you: Linden Weems 04/24/2022 1:31 PM Signed Patient left message that she had labs drawn today. Linden Weems Administrative Vocational Counselor Post Heart Transplant J3-4 Loida Mathias APRN.ARMHOLE PRESSER 04/26/2022 11:25 AM Signed Received FK level 4.5, drawn 04/24 My chart message sent to patient. Advised to remain on current dose and keep our office updated re: her plans for post transplant follow up. Loida Mathias APRN.ARMHOLE PRESSER April 26, 2022 11:24 AM Component Latest [...] mg by mouth three times daily. - xgvvne-gzwocord-nyugm se (CREON) 24,000-76,000 -120,000 unit cpDR Take [...] Status:Closed by LINDEN WEEMS on 04/24/22 Normal [facility] TACROLIMUS/FK-506 BLon 04-24 Tacrolimus (Bld) [Mass/Vol] 4.5 ng/mL Low 5.0-20.0 [facility] Comment on above: Order Comment: Speci men [...] Test performed by chemiluminescent immunoassay using [employer] Boring Machine Operator. Performed By: #### F K506 ####[facility] LABCLIA [id number] [place] [address] [place] FK506 (TACROLIMUS) WHOLE BLO ODon 04-11-2022 Tacrolimus (FK506), Blood 7.3 ng/mL Normal 2.0-20.0 [facility] Comment on above: Result Comment: Trou gh (immediately following transplant) 15.0 . Trough (steady state, 2 weeks or more after transplant): 3.0 - 8.0 . Performed by LC-MS/MS technology. Performed By: #### RANDALL OLSON #### [facility] [address] [place] [address] Dr. Hardeep Rivera BOX TEST SENT OUTon 04-09-20 22 SENT TO REF LAB 04/09/2022 Normal [facility] Comment on above: Performed By: #### RANDALL OLSON #### [facility] [address] [place] [address] Dr. Hardeep Rivera CBC AUTO DIFFon 04-09-2022 BASO # 0.0 103/ul Normal 0.0-0.1 [facility] Comment on above: Performed By: #### RANDALL OLSON #### [facility] [address] [place] [address] Dr. Hardeep Rivera Basophils/100 WBC (Bld) 0.1 % Critically low 0.2-2.0 [facility] Comment on above: Performed By: #### HARI OLSONRO #### [facility] [address] [place] [address] Dr. Hardeep Rivera EO # 0.1 103/ul Normal 0.0-0.7 [facility] Comment on above: Performed By: #### HARI OLSONRO #### [facility] [address] [place] [address] Dr. Hardeep Rivera Eosinophils/100 WBC (Bld) 1.2 % Normal 0.9-7.0 [facility] Comment on above: Performed By: #### HARI OLSONRO #### [facility] [address] [place] [address] Dr. Hardeep Rivera Erythrocyte distribution width (RBC) [Ratio] 12.6 % Normal 11.0-15.0 [facility] Comment on above: Performed By: #### Deedee PINON UMICRO #### [facility] [address] [place] [address] Dr. Hardeep Rivera Hematocrit (Bld) [Volume fraction] 44.1 % Normal 36.0-48.0 [facility] Comment on above: Performed By: #### Deedee PINON UMICRO #### [facility] [address] [place] [address] Dr. Hardeep Rivera Hemoglobin (Bld) [Mass/Vol] 14.1 g/dL Normal 12.0-16.0 [facility] Comment on above: Performed By: #### Deedee PINON UMICRO #### [facility] [address] [place] [address] Dr. Hardeep Rivera IG # 0.02 10e3/ul Normal 0.00-0.03 [facility] Comment on above: Performed By: #### Deedee PINON UMICRO #### [facility] [address] [place] [address] Dr. Hardeep Rivera IG % 0.3 % Normal 0.0-0.5 [facility] Comment on above: Performed By: #### Deedee PINON UMICRO #### [facility] [address] [place] [address] Dr. Hardeep Rivera LYMPH # 0.7 103/ul Critically low 1.2-3.8 [facility] Comment on above: Performed By: #### Deedee PINON UMICRO #### [facility] [address] [place] [address] Dr. Hardeep Rivera Lymphocytes/100 WBC (Bld) 10.8 % Critically low 20.5-60.0 [facility] Comment on above: Performed By: #### Deedee PINON UMICRO #### [facility] [address] [place] [address] Dr. Hardeep Rivera MANUAL DIFF REQ NO Normal [facility] Comment on above: Performed By: #### Deedee PINON UMICRO #### [facility] [address] [place] [address] Dr. Hardeep Rivera MCH (RBC) [Entitic mass] 29.3 pg Normal 26.7-34.0 [facility] Comment on above: Performed By: #### HARI OLSONRO #### [facility] [address] [place] [address] Dr. Hardeep Rivera MCHC (RBC) [Mass/Vol] 32.0 g/dL Normal 29.9-35.2 [facility] Comment on above: Performed By: #### HARI OLSONRO #### [facility] [address] [place] [address] Dr. Hardeep Rivera MCV (RBC) [Entitic vol] 91.7 fL Normal 81.0-99.0 [facility] Comment on above: Performed By: #### HARI OLSONRO #### [facility] [address] [place] [address] Dr. Hardeep Rivera MONO # 0.7 103/ul Normal 0.3-0.8 [facility] Comment on above: Performed By: #### HARI OLSONRO #### [facility] [address] [place] [address] Dr. Hardeep Rivera Monocytes/100 WBC (Bld) 10.8 % Normal 1.7-12.0 [facility] Comment on above: Performed By: #### HARI OLSONRO #### [facility] [address] [place] [address] Dr. Hardeep Rivera NEUT # 5.2 103/ul Normal 1.4-6.5 [facility] Comment on above: Performed By: #### AKSHAT OLSONICRO #### [facility] [address] [place] [address] Dr. Hardeep Rivera Neutrophils/100 WBC (Bld) 76.8 % Critically high 43.0-75.0 [facility] Comment on above: Performed By: #### HARI OLSONRO #### [facility] [address] [place] [address] Dr. Hardeep Rivera Platelet mean volume (Bld) [Entitic vol] 9.8 fL Normal 9.5-13.5 [facility] Comment on above: Performed By: #### Deedee PINON UMICRO #### [facility] [address] [place] [address] Dr. Hardeep Rivera PLT 200 103/ul Normal 150-450 [facility] Comment on above: Performed By: #### Deedee PINON UMICRO #### [facility] [address] [place] [address] Dr. Hardeep Rivera RBC 4.81 106/ul Normal 4.20-5.40 [facility] Comment on above: Performed By: #### Deedee PINON UMICRO #### [facility] [address] [place] [address] Dr. Hardeep Rivera WBC 6.7 103/ul Normal 4.0-11.0 [facility] Comment on above: Performed By: #### Deedee PINON UMICRO #### [facility] [address] [place] [address] Dr. Hardeep Rivera PROF CHEM 8 (BAS METB)on Anion gap [Moles/Vol] 9.1 mmol/L Normal [facility] Comment on above: Performed By: #### Deedee PINON UMICRO #### [facility] [address] [place] [address] Dr. Hardeep Rivera Calcium [Mass/Vol] 8.3 mg/dL Critically low 8.5-10.1 [facility] Comment on above: Performed By: #### Deedee PINON UMICRO #### [facility] [address] [place] [address] Dr. Hardeep Rivera Chloride [Moles/Vol] 100 mmol/L Normal 98-107 [facility] Comment on above: Performed By: #### Deedee PINON UMICRO #### [facility] [address] [place] [address] Dr. Hardeep Rivera CO2 [Moles/Vol] 28.1 mmol/L Normal 21.0-32.0 [facility] Comment on above: Performed By: #### Deedee PINON UMICRO #### [facility] [address] [place] [address] Dr. Hardeep Rivera Creatinine [Mass/Vol] 1.54 mg/dL Critically high 0.55-1.02 [facility] Comment on above: Performed By: #### HARI OLSONRO #### [facility] [address] [address] [address] Hardeep Rivera EGFR-AF SLOVENIAN 40 mL/min/1.73m2 Critically low >=60 [facility] Comment on above: Performed By: #### HARI OLSONRO #### [facility] [address] [address] [address] Hardeep Rivera EGFR-NON AF SLOVENIAN 33 mL/min/1.73m2 Critically low >=60 [facility] Comment on above: Performed By: #### HARI OLSONRO #### [facility] [address] [place] [address] Dr. Hardeep Rivera Glucose [Mass/Vol] 122 mg/dL Critically high 74-106 T [facility] Comment on above: Performed By: #### HARI OLSONRO #### [facility] [address] [place] [address] Dr. Hardeep Rivera Potassium [Moles/Vol] 4.2 mmol/L Normal 3.5-5.1 [facility] Comment on above: Performed By: #### HARI OLSONRO #### [facility] [address] [place] [address] Dr. Hardeep Rivera Sodium [Moles/Vol] 133 mmol/L Critically low 136-145 Th [facility] Comment on above: Performed By: #### AKSHAT OLSONICRO #### [facility] [address] [place] [address] Dr. Hardeep Rivera Urea nitrogen [Mass/Vol] 28.0 mg/dL Critically high 7.0-18.0 [facility] Comment on above: Performed By: #### AKSHAT OLSONICRO #### [facility] [address] [address] [address] Hardeep Rivera Urea nitrogen/Creatinine [Mass ratio] 18.2 mg/mg Normal [facility] Comment on above: Performed By: #### E RANDALL PINON #### [facility] [address] [address] [address] Hardeep Rivera TACROLIMUS/FK-506 BLon 04-09 Tacrolimus (Bld) [Mass/Vol] 9.9 ng/mL Normal 5.0-20.0 [facility] Comment on above: Order Comment: Speci men [...] Test performed by chemiluminescent immunoassay using [employer] Boring Machine Operator. Performed By: #### F K506 ####[facility] LABCLIA [id number] [address] Eduardo 10-10-2021 CNPN Telephone [facility] SYLVIA HERRERA ([id number]) 1945 F Date Time Provider Department 10/10/21 LOIDA MATHIAS [facility] During your visit today, we recorded the following information about you: Linden Weems 10/10/2021 11:57 AM Signed Patient had labs drawn today Linden Weems Administrative Vocational Counselor Linden Weems 10/11/2021 10:57 AM Signed Labs uploaded to scanned docs. Linden Weems Administrative Vocational Counselor Loida Mathias APRN.ARMHOLE PRESSER 10/12/2021 12:28 PM Signed Received outside labs [...] transplant. No Dr Caldera: Rfl: TACROLIMUS/FK-506 BL [[id number]] Order #: [id number] FUTURE Prescriptions as of 10/12/2021 - tacrolimus [...] mg by mouth three times daily. - dabirz-zevvkmsl-lwgen se (CREON) 24,000-76,000 -120,000 unit cpDR Take [...] [J18.9] 11/29 (more content not included)... Normal [facility] Tacrolimus / [id number] 09- 021 Tacrolimus / FK506 10.1 ng/mL Normal 5.0-20.0 [facility] Comment on above: Result Comment: Thes [...] Test performed by chemiluminescent immunoassay using [employer] Boring Machine Operator. Performed By: #### F K506 ####[facility] [place], [place] [id number] Eduardo 09-13-2021 CNPN Telephone (CARD [facility]) SYLVIA HERRERA ([id number]) 1945 F Date Time Provider Department 09/13/21 ARELIS NEWSOME [facility] During your visit today, we recorded the following information about you: Linden Faustina 09/13/2021 2:52 PM Signed S/w pt, due to transportation and financial constraints she is unable to come to [place] for appointments. Patient is working with her case folder to establish care with a local book canvasser (had previously been followed by one in [place]).Dr Rice has agreed and plan going forward will be to do a phone visit with pt on 10/03 and she will follow up in the interim with her local Tar Distributor Operator. Sending pt mailers and lab order, she will get those done as soon as she can. Linden Faustina Administrative Vocational Counselor Allergies As of Date: 09/13/2021 Noted Allergy [...] mg by mouth three times daily. - jskqwe-zgdmhehw-sgytp se (CREON) 24,000-76,000 -120,000 unit cpDR Take [...] Encounter Status:Closed by LINDEN WEEMS on 09/13/21 [facility] OBSOLETEon 09-12-2021 OBSOLETE Refill ([facility] ) SYLVIA HERRERA ([id number]) 1945 F Date Time Provider Department 09/12/21 SANDRITA GUERRERO [facility] During your visit today, we recorded [...] mg by mouth three times daily. - miafor-kgfdyvfh-eonvu se (CREON) 24,000-76,000 -120,000 unit cpDR Take [...] Status:Closed by SANDRITA GUERRERO on 09/12/21 Normal [facility] Vital Signs Date Time Vital Sign Value Performing Clinician Dami charles 04-08-2023 06:45-0400 Diastolic blood pressure 76 mm[Hg] Bababoo [facility] 04-08-2023 06:45-0400 Heart rate 59 /min Bababoo [facility] 04-08-2023 06:45-0400 Hourly Rounding Richard Fewzion [facility] 04-08-2023 06:45-0400 Mean blood pressure 106 mm[Hg] Richard Roby [facility] 04-08-2023 06:45-0400 Respiratory rate 18 /min Richard Roby [facility] 04-08-2023 06:45-0400 SaO2% (BldA) [Mass fraction] 96 % Richard Roby [facility] 04-08-2023 06:45-0400 Systolic blood pressure 167 mm[Hg] Richard Roby [facility] 04-08-2023 05:30-0400 Diastolic blood pressure 88 mm[Hg] Richard Roby [facility] 04-08-2023 05:30-0400 Heart rate 52 /min Richard Roby [facility] 04-08-2023 05:30-0400 Hourly Rounding Richard Roby [facility] 04-08-2023 05:30-0400 Mean blood pressure 114 mm[Hg] Richard Roby [facility] 04-08-2023 05:30-0400 Respiratory rate 18 /min Richard Roby [facility] 04-08-2023 05:30-0400 SaO2% (BldA) [Mass fraction] 95 % Richard Roby [facility] 04-08-2023 05:30-0400 Systolic blood pressure 167 mm[Hg] Richard Roby [facility] 04-08-2023 04:39-0400 Diastolic blood pressure 90 mm[Hg] Richard Roby [facility] 04-08-2023 04:39-0400 Heart rate 56 /min Richard Roby [facility] 04-08-2023 04:39-0400 Hourly Rounding Richard Roby [facility] 04-08-2023 04:39-0400 Mean blood pressure 112 mm[Hg] Richard Roby [facility] 04-08-2023 04:39-0400 Respiratory rate 17 /min Richard Roby [facility] 04-08-2023 04:39-0400 SaO2% (BldA) [Mass fraction] 94 % Richard Roby [facility] 04-08-2023 04:39-0400 Systolic blood pressure 155 mm[Hg] Richard Roby [facility] 04-07-2023 21:48-0400 Respiratory rate 18 /min Richard Roby [facility] 04-07-2023 21:19-0400 Body temperature 98.06 [degF] Richard Roby [facility] 04-07-2023 21:19-0400 Heart rate 65 /min Richard Roby [facility] 04-07-2023 21:19-0400 Respiratory rate 19 /min Richard Roby [facility] Encounters Encounter Date Encounter Type Care Provider Facility Start: 11-12-2023 End: 11-12-2023 ambulatory [facility] Start: 08-07-2023 End: 08-07-2023 ambulatory [facility] Start: 04-07-2023 End: 04-08-2023 Emergency department patient visit Richardchaya Low Roby [facility] Start: 04-07-2023 End: 04-08-2023 Emergency department patient visit Richard Ca [facility] Start: 03-05-2023 End: 03-05-2023 ambulatory DUYEN ROGERS Facility:[facility] Start: 02-26-2023 End: 02-27-[address] ANISHA DINH Facility:[facility] Start: 02-14-2023 End: 02-14-2023 ambulatory NANCY REYES . Facility:[facility] Start: 02-13-2023 End: 02-14-2023 ambulatory DUYEN ROGERS Facility:[facility] Start: 02-11-2023 End: 02-12-2023 ambulatory [facility] Start: 02-09-2023 End: 02-10-[address] ANISHA DINH Facility:[facility] Start: 01-09-2023 End: 01-10-[address] TAO ROONEY . Facility:[facility] Start: 01-07-2023 End: 01-07-2023 ambulatory [facility] Start: 12-13-2022 End: 12-14-2022 ambulatory DUYEN ROGERS Facility:[facility] Start: 12-11-2022 End: 12-12-[address] TAO ROONEY . Facility:[facility] Start: 11-14-2022 End: 11-14-2022 ambulatory DUYEN ROGERS Facility:[facility] Start: 10-03-2022 End: 10-03-2022 ambulatory DUYEN ROGERS Facility:[facility] Start: 09-08-2022 Refill Sandrita Guerrero APRN.ARMHOLE PRESSER Work Phone: Cardiology Comment on above: Refill Request Start: 08-04-2022 End: 08-04-2022 ambulatory NANCY REYES . Facility:[facility] Start: 08-02-2022 Telephone encounter Loida Mathias APRN.CNP Work Phone: Cardiology Comment on above: Heart Transplant Fol low Up (Labs/) Start: 08-02-2022 End: 08-03-[address] TAO ROONEY . Facility:[facility] Start: 07-27-[address] TAO ROONEY . Facili ty:[facility] Start: 07-17-2022 End: 07-18-2022 ambulatory [facility] Start: 07-16-2022 End: 07-17-2022 ambulatory [facility] Facility[facility] Start: 07-16-2022 End: 07-16-2022 Patient encounter procedure [facility] Start: 07-12-2022 End: 07-13-2022 ambulatory [facility] Start: 07-05-2022 Telephone encounter Sho Crowley APRN.ARMHOLE PRESSER Work Phone: Cardiology Comment on above: Heart Transplant Fol low Up; Lab Meeting Start: 07-03-2022 Telephone encounter Soy Mccann RN Ca rdiology Comment on above: Heart Transplant Fol low Up (labs) Start: 07-03-2022 End: 07-04-[address] TAO ROONEY . Facility:[facility] Start: 05-28-2022 End: 05-29-[address] TAO ROONEY . Facility:[facility] Start: 05-23-2022 ambulatory [facility] Facility: [facility] Start: 05-08-2022 Telephone encounter Loida Mathias APRN.ARMHOLE PRESSER Work Phone: Cardiology Comment on above: Heart Transplant Fol low Up (labs) Start: 05-07-2022 End: 05-08-[address] TAO ROONEY . Facility: Start: 04-24-2022 Telephone encounter Loida Mtahias APRN.ARMHOLE PRESSER Work Phone: Cardiology Comment on above: Heart Transplant Fol low Up Start: 04-24-2022 End: 04-25-[address] TAO ROONEY . Facility:[facility] Start: 04-20-[address] TAO ROONEY . Facili ty:[facility] Start: 04-11-2022 ambulatory Loida fontaine APRN.ARMHOLE PRESSER Work Phone: [facility] Start: 04-11-2022 Follow-up encounter Loida Mathias APRN.ARMHOLE PRESSER Work Phone: Cardiology Comment on above: Heart Transplant Fol low Up (Labs) Start: 04-09-2022 End: 04-10-[address] TAO ROONEY . Facility: Start: 04-06-2022 Orders Only Loida fontaine APRN.ARMHOLE PRESSER Work Phone: Cardiology Comment on above: Heart replaced by tr ansplant (HCC) (Primary Dx) Start: 04-04-2022 Refill Loida fontaine APRN.ARMHOLE PRESSER Work Phone: Cardiology Comment on above: Rx Refills Start: 10-03-2021 End: 10-03-2021 ambulatory NICOLETTE RICE [facility] Procedures Date Procedure Procedure Detail Performing Clinician Start: 08-10-2013 H/O: heart recipient Heart transplan arianna Loida Mathias APRN.ARMHOLE PRESSER Work Phone: H/O: heart recipient Heart transplanted ( HCC) Loida Bishopo MANAGER CARDIOLOGY.ARMHOLE PRESSER Work Phone: H/O: heart recipient Heart repla nitish by transplant (HCC) Loida Woodmmarino MANAGER CARDIOLOGY.ARMHOLE PRESSER Work Phone: H/O: heart recipient Heart transplanted ( HCC) Loida Gustafsonrino MANAGER CARDIOLOGY.ARMHOLE PRESSER Work Phone: H/O: heart recipient Heart transplanted ( HCC) Loida Woodmmarino MANAGER CARDIOLOGY.ARMHOLE PRESSER Work Phone: H/O: heart recipient Heart transplanted ( HCC) Sho Crowley MANAGER CARDIOLOGY.ARMHOLE PRESSER Work Phone: H/O: heart recipient Hx of heart transplant( Confirmed ) Eddie JAMA Plan of Treatment Date Care Activity Detail Author Start: 08-02-2022 Influenza vaccination INFLUENZA (#1) [facility] Start: 07-19-2022 End: 09-18-2022 Tacrolimus [Mass/volume] in Blood TACROLIMUS/FK-506 BL Lab Routine Heart transplanted (HCC) Expected: 07/19/2022 (Approximate), Expires: 09/18/2022 [facility] Work Phone: Comment on above: Expected: 07/19/2022 (Approximate), Expires: 09/18/2022 Start: 05-21-2022 End: 07-21-2022 TACROLIMUS/FK-506 BL TACROLIMUS/FK-506 BL Lab Routine Heart transplanted (HCC) Expected: 05/21/2022, Expires: 07/21/2022 [facility] Work Phone: Comment on above: Expected: 05/21/2022 , Expires: 07/21/2022 Start: 04-23-2022 End: 06-23-2022 TACROLIMUS/FK-506 BL TACROLIMUS/FK-506 BL Lab Routine Heart transplanted (HCC) Expected: 04/23/2022, Expires: 06/23/2022 [facility] Work Phone: Comment on above: Expected: 04/23/2022 , Expires: 06/23/2022 Start: 04-09-2022 End: 06-09-2022 CBC W Auto Differential panel - Blood CBC + DIFF Lab Routine Heart replaced by transplant (HCC) Expected: 04/09/2022, Expires: 06/09/2022 [facility] Work Phone: Comment on above: Expected: 04/09/2022 , Expires: 06/09/2022 Start: 04-09-2022 End: 06-09-2022 Comprehensive metabolic 2000 panel - Serum or Plasma COMP METABOLIC PANEL Lab Routine Heart replaced by transplant ([facility]) Expected: 04/09/2022, Expires: 06/09/2022 [facility] Work Phone: Comment on above: Expected: 04/09/2022 , Expires: 06/09/2022 Start: 04-09-2022 End: 04-06-2023 HEART/LUNG REC POST TX DSA HEART/LUNG REC POST TX DSA ALLOGEN Routine Heart replaced by transplant ([facility]) Expected: 04/09/2022, Expires: 04/06/2023 [facility] Work Phone: Comment on above: Expected: 04/09/2022 , Expires: 04/06/2023 Start: 04-09-2022 End: 06-09-2022 LIPID PANEL BASIC LIPID PANEL BASIC Lab Routine Heart replaced by transplant ([facility]) Expected: 04/09/2022, Expires: 06/09/2022 [facility] Work Phone: Comment on above: Expected: 04/09/2022 , Expires: 06/09/2022 Start: 04-09-2022 End: 06-09-2022 Magnesium [Mass/volume] in Serum or Plasma MAGNESIUM BLD Lab Routine Heart replaced by transplant ([facility]) Expected: 04/09/2022, Expires: 06/09/2022 [facility] Work Phone: Comment on above: Expected: 04/09/2022 , Expires: 06/09/2022 Start: 04-09-2022 End: 06-09-2022 TACROLIMUS/FK-506 BL TACROLIMUS/FK-506 BL Lab Routine Heart replaced by transplant ([facility]) Expected: 04/09/2022, Expires: 06/09/2022 [facility] Work Phone: Comment on above: Expected: 04/09/2022 , Expires: 06/09/2022 Start: 04-09-2022 End: 06-09-2022 URINALYSIS, DIPSTICK ONLY URINALYSIS, DIPSTICK ONLY Lab Routine Heart replaced by transplant ([facility]) Expected: 04/09/2022, Expires: 06/09/2022 [facility] Work Phone: Comment on above: Expected: 04/09/2022 , Expires: 06/09/2022 Start: 12-02-2021 ADVANCE DIRECTIVE DISCUSSION ADVANCE DIRECTIVE DISCUSSION [facility] Start: 09-26-2021 COVID-19 VACCINE (3 - Pfizer risk 4-dose series) COVID-19 VACCINE (3 - Pfizer risk 4-dose series) [facility] Start: 09-26-2021 COVID-19 VACCINE (3 - Pfizer risk series) COVID-19 VACCINE (3 - Pfizer risk series) [facility] Start: 03-04-2020 Hepatitis B surface antibody level LDL CHOLESTEROL [facility] Start: 06-14-2015 Hemoglobin A1c/Hemoglobin.total in Blood HBA1C [facility] Start: 11-01-2013 PNEUMOCOCCAL: 65+ (3 - PCV) PNEUMOCOCCAL: 65+ (3 - PCV) [facility] Start: 2009 ADULT PREVNAR ADULT PREVNAR [facility] Start: 1994 SHINGRIX VACCINE (1 of 2) SHINGRIX VACCINE (1 of 2) [facility] Start: 1963 SHINGRIX VACCINE (1 of 2) SHINGRIX VACCINE (1 of 2) [facility] Start: 1963 Urine microalbumin profile DTAP,TDAP,TD (1 - Tdap) [facility] Start: 1962 ANNUAL PCP TEAM INFORMATION ASSURANCE MANAGER BRENNAN DISEASE VISIT ANNUAL PCP TEAM CHRONIC DISEASE VISIT [facility] Start: 1962 BP CONTROLLED (<130/80) BP CONTROLLE D (<130/80) [facility] Start: 1954 3 comp foot exam completed DIABETIC FOOT EXAM [facility] Start: 1954 Hepatitis B screening URINE ALBUMIN:CREATININE RATIO [facility] Start: 1954 Hepatitis C antibody , confirmatory test DILATED RETINAL EXAM [facility] Start: 1950 PNEUMOCOCCAL: 65+ (1 - PCV) PNEUMOCOCCAL: 65+ (1 - PCV) [facility] [facility] Immunizations Immunization Date Immunization Notes Care Provider Fa cility 06-05-2022 SARS-CoV-2 mRNA (lbhkwnvkrik-edsm-fhqoq se) vaccine Morgan SALAM [facility] 08-29-2021 SARS-CoV-2 (COVID-19 ) mRNA BNT-162b2 vax Morgan SALAM [facility] 08-02-2021 SARS-CoV-2 (COVID-19 ) mRNA BNT-162b2 vax Morgan SALAM [facility] 07-05-2021 influenza virus vaccine, unspecified formulation Morgan SALAM [facility] 09-29-2020 influenza, unspecifi ed formulation Morgan SALAM [facility] 07-24-2020 influenza virus vaccine, unspecified formulation Morgan SALAM [facility] 09-02-2017 influenza virus vaccine, unspecified formulation Morgan SALAM [facility] 08-07-2017 pneumococcal conjuga te vaccine, 13 valent Morgan SALAM [facility] 08-14-2016 influenza virus vaccine, unspecified formulation Morgan SALAM [facility] 09-29-2015 pneumococcal conjuga te vaccine, 13 valent Morgan SALAM [facility] 08-04-2015 influenza virus vaccine, unspecified formulation Morgan SALAM [facility] 09-15-2014 influenza virus vaccine, whole virus Loida Iammarino MANAGER CARDIOLOGY.[facility] Work Phone: [facility] 09-15-2014 influenza, whole Morgan SALAM [facility] 11-01-2012 pneumococcal polysaccharide vaccine, 23 valent Loida Iammarino MANAGER CARDIOLOGY.[facility] Work Phone: [facility] 12-28-2009 novel [id number], all formulations Loida Iammarino MANAGER CARDIOLOGY.[employer] Work Phone: [facility] Work Phone: 08-19-2009 influenza virus vaccine, unspecified formulation Loida Iammarino MANAGER CARDIOLOGY.[employer] Work Phone: [facility] 09-01-2006 influenza virus vaccine, unspecified formulation Loida Iammarino MANAGER CARDIOLOGY.[employer] Work Phone: [facility] Work Phone: 09-01-2006 pneumococcal polysaccharide vaccine, 23 valent Loida Iammarino MANAGER CARDIOLOGY.[employer] Work Phone: [facility] Work Phone: NEGATED: Highlighted row has not occurred!07-12-2022 influenza virus vaccine, unspecified formulation Morgan SALAM [facility] Payers Date Payer Category Payer Medicare UHC MEDICARE UHC DUAL COMPLETE HMO SNP [id number] 2022-Present [phone] [address] [place] [address] Medicare [id number] 2022 Medicare UHC MEDICARE UHC DUAL COMPLETE HMO SNP [id number] 2022-Present [phone] [address] [place] [address] Medicare [id number] 2020 Unknown [id number] 1959 Medicaid [id number] 1959 Medicare [id number] 1959 Self-pay [id number] 1959 Unknown [id number] 1944 Unknown [id number] 2.16.840.1.077284.3.579.2.593 1944 Unknown [id number] 2.16.840.1.186115.3.579.2.593 1944 Unknown [id number] 2.16.840.1.183395.3.579.2.593 1944 Unknown [id number] 2.16.840.1.093160.3.579.2.593 1944 Unknown [id number] 2.16.840.1.489377.3.579.2.593 1944 Unknown [id number] 2.16.840.1.999958.3.579.2.593 1944 Unknown [id number] 2.16.840.1.229854.3.579.2.593 1944 Unknown [id number] 2.16.840.1.698029.3.579.2.593 1944 Unknown [id number] 2.16.840.1.335744.3.579.2.593 1944 Unknown [id number] 2.16.840.1.876938.3.579.2.593 1944 Unknown [id number] 2.16.840.1.231380.3.579.2.593 1944 Unknown [id number] 2.16.840.1.912361.3.579.2.593 1944 Unknown [id number] 2.16.840.1.374056.3.579.2.593 1944 Unknown [id number] 2.16.840.1.985111.3.579.2.593 1944 Unknown [id number] 2.16.840.1.101078.3.579.2.593 1944 Unknown [id number] 2.16.840.1.970535.3.579.2.593 1944 Unknown [id number] 2.16.840.1.956195.3.579.2.593 1944 Unknown [id number] 2.16.840.1.878825.3.579.2.593 1944 Unknown [id number] 2.16.840.1.689858.3.579.2.727 1944 Unknown [id number] 2.16.840.1.391210.3.579.2.727 1944 Unknown [id number] 2.16.840.1.990778.3.579.2.727 1944 Unknown [id number] 2.16.840.1.499025.3.579.2.727 1944 Unknown [id number] 2.16.840.1.714163.3.579.2.727 Unknown [id number] 2.16.840.1.085195.3.579.2.593 Social History Date Type Detail Facility Start: 05-13-2019 Tobacco smoking stat us NHIS Ex-smoker [facility] Work Phone: History of tobacco use Cigarette Smoker C [facility] Work Phone: Start: 09-07-2019 Alcohol intake Current non-dr cuff folder of alcohol (finding) [facility] Start: 1945 Sex Assigned At Not on file C [facility] Start: 07-12-2022 Never smoked t obacco (finding) [facility] Never [facility] Female [facility] History of tobacco use Current smoker [facility] Start: 05-13-2019 Cigarettes smoked current (pack per day) - Reported 0.3 [facility] Start: 05-13-2019 Tobacco use and exposure Smokeless tobacco non-user [facility] Functional Status Date Assessment Result Facility 04-07-2023 Functional Status N/A [facility] Clinical Notes 11-14-2017 to 11-12-2023 Note Date & Type Note Facility 11-12-2023 Note [facility] Subjective Sylvia Herrera is a [...] in 2007. She is followed by the [facility] cardiology service. She has had no [...] Stress Testing (1 (more content not included)... [facility] 10-28-[address] [facility] 08-07-2023 Note [facility] Subjective Sylvia Herrera is a [...] in 2007. She is followed by the [facility] cardiology service. She has had no [...] scan. Gated St (more content not included)... [facility] 07-23-2023 Note ta [facility] 04-08-2023 Hospital Discharge instructions Patient Education 04/08/2023 [...] ?Adrenal gland problems. ?Metabolic conditions, such as Sawyer's disease or syndrome of inappropriate antidiuresis (SIAD). [...] improvement. Follow these instructions at home: Take geyc-gzb-esahllr and prescription medicines only as told by [...] provider. Document Revised: 05/29/2022 Document Reviewed: 05/29/2022 [employer] Patient Education 2022 [employer]. 04/08/2023 08:56:02 Nonspecific Chest Pain, Adult Nonspecific [...] Follow these instructions at home: Medicines Take edow-jle-bprabfu and prescription medicines only as told by [...] provider. Document Revised: 02/01/2022 Document Reviewed: 02/01/2022 [employer] Patient Education 2022 [employer]. Follow Up Care 04/07/2023 21:19:10 With:DUYEN ROGERS Address: [address] [place] [address]- [phone] Business (1) When:Within 3 Day(s) [facility] 04-07-2023 Evaluation + Plan note Extrac arianna [...] Troponin 9 Hr. XR Chest Single View [facility]03[facility] Subjective Sylvia Herrera is [...] in 2007. She is followed by the [facility] cardiology service. She has had no [...] Left ventricle is norm (more content not included)...[facility]02-06-2023 [facility] Subjective Sylvia Herrera is [...] in 2007. She is followed by the [facility] cardiology service. She has had no [...] 6. This is a (more content not included)...[facility] 12-11-20[facility] Miscellaneous Notes* Telephone Encounter - Linden Weems - 08/02/2022 1:41 PM EDT Patient had labs drawn 08/02/22, uploaded to scanned docs. [facility] Miscellaneous Notes* Telephone Encounter - Sho [...] another team. Sho Crowley APRN, ODETTE Pager: [phone] July 05, 2022 10:42 AM Post Heart Transplant Nurse Practitioner documented in [facility] Miscellaneous Notes* Telephone Encounter - Linden Weems - 07/03/2022 12:59 PM EDT Patient had labs drawn 07/03/22, uploaded to scanned docs. [facility] in [facility] Miscellaneous Notes* Addendum Note - Loida [...] uploaded to scanned docs. Linden Weems Administrative Vocational Counselor documented in [facility] encounter[facility]22 Miscellaneous Notes* Telephone Encounter - Linden Weems - 04/24/2022 1:31 PM EDT Patient left message that she had labs drawn today. Linden Faustina Administrative Vocational Counselor Post Heart Transplant J3-4 documented in this encounterSt. [facility]05-11-2022 NoteHNO ID: [id number] Author: Loida Mathias APRN.CNP Service: ? Author [...] reports she can no longer travel to [place]. She does not have a ride, she has no family or friends to lean on. She has made an appt with a local Tar Distributor Operator. She will ask him if there are any transplant doctors or centers near her and potentially need to transfer her care. She will keep us updated. Loida Mathias APRN.CNP April 12, 2022 2:25 [facility]05-11-2022 History of Present illness Narrative* Loida [...] reports she can no longer travel to [place]. Shedoes not have a ride, she has no family or friends to lean on. She has made an appt with a local [employer] Distributor Operator. She will ask him if there are any transplant doctors or centers near her and potentiallyneed to transfer her care. She will keep us updated. Loida Mathias APRN.CNP April 12, 2022 2:25 PM documented in this encounterSt[facility]11-08-2021 NoteHNO ID: [id number] Author: Loida Mathias APRN.CNP Service: ? Author [...] Loida Mathias APRN.CNP October 09, 2021 4:10 [facility]11-02-2021 NoteHNO ID: [id number] Author: Nicolette Rice MD Service: ? Author Type: Physician Type: Progress Notes Filed: 10/03/2021 4:12 PM Note Text: Heart, Vascular AND Thoracic [place] Department of Cardiovascular Medicine TELEPHONE VISIT PROGRESS [...] in ~6 months. Will see a local book canvasser at the end of the month. Data Reviewed: No new labs Assessment: She is doing well clinically and her BP is controlled. ? Plan: 1. She was instructed to continue the current medical program. 2. RTC per post-transplant protocol. Total Time Spent: 21-30 minutes Nicolette Rice, [facility]12-14-2017 History of Past illness Narrative* Problem [...] of this encounter (statuses as of 04/05/2022) [facility] History of Past illness Narrative* Problem [...] of this encounter (statuses as of 04/06/2022) [facility] History of Past illness Narrative* Problem [...] of this encounter (statuses as of 04/12/2022) [facility] History of Past illness Narrative* Problem [...] of this encounter (statuses as of 04/24/2022) [facility] History of Past illness Narrative* Problem [...] of this encounter (statuses as of 05/08/2022) [facility] of Past illness Narrative* Problem [...] of this encounter (statuses as of 07/03/2022) [facility] of Past illness Narrative* Problem [...] of this encounter (statuses as of 07/05/2022) [facility] of Past illness Narrative* Problem [...] of this encounter (statuses as of 08/02/2022) [facility] of Past illness Narrative* Problem [...] of this encounter (statuses as of 09/11/2022) [facility] Future Appointments Appointment Date:08/01/2022 01:50:00 PM Scheduled Provider: Location:[facility] Appointment Type:Surgery FT Diagnostic Tests Pending * CMV Antibody IgM 07/16/22 Future Scheduled Tests Laboratory* Fecal WBC Lactoferrin 07/12/22 * Giardia lamblia, Direct Detection EIA 07/12/22 * O & P Exam, Routine 07/12/22 * Clostridium difficile by PCR 07/12/22 * Enteric Panel by PCR 07/12/22 [facility] (HCC) Heart replaced by transplant [facility] Diagnosis Heart replaced by transplant (HCC)- Primary Heart replaced by transplant [facility]* Diagnosis Heart replaced by transplant (HCC)- Primary Heart replaced by transplant Heart transplanted (HCC) Heart replaced by transplant documented in this encounter [facility] note* Diagnosis Heart transplanted (HCC) Heart replaced by transplant documented in this encounter [facility] note* Diagnosis Heart transplanted (HCC) Heart replaced by [facility] Narrative No data available for this section [facility] Discharge instructions No data available for this section [facility] No data available for this section [facility] Advance Directives No Advanced Directives Records FoundDocuments on File Type Date Recorded Patient Cellar Packer Expl anation Advance Directive(s) 11/14/2017 5:44 AM Advance Directive(s) 01/02/2012 12:00 AM Advance Directive(s) 01/17/2007 12:00 AM Documents on File Type Date Recorded Patient Cellar Packer Expl anation Advance Directive(s) 01/02/2012 Advance Directive(s) [...] or prosecute any alcohol or drug abuse patient.[facility] HospitalIn the event this information is protected by the Federal Confidentiality of Alcohol and Drug Abuse Patient Records regulations: The Federal rules restrict any use of the information to criminally investigate or prosecute any alcohol or drug abuse patient.[facility]In the event this information is protected by the Federal Confidentiality of Alcohol and Drug Abuse Patient Records regulations: The Federal rules restrict any use of the information to criminally investigate or prosecute any alcohol or drug abuse patient.[facility] the event this information is protected by the Federal Confidentiality of Alcohol and Drug Abuse Patient Records regulations: The Federal rules restrict any use of the information to criminally investigate or prosecute any alcohol or drug abuse patient.[facility]In the event this information is protected by the Federal Confidentiality of Alcohol and Drug Abuse Patient Records regulations: The Federal rules restrict any use of the information to criminally investigate or prosecute any alcohol or drug abuse patient.[facility]In the event this information is protected by the Federal Confidentiality of Alcohol and Drug Abuse Patient Records regulations: The Federal rules restrict any use of the information to criminally investigate or prosecute any alcohol or drug abuse patient.[facility]In the event this information is protected by the Federal Confidentiality of Alcohol and Drug Abuse Patient Records regulations: The Federal rules restrict any use of the information to criminally investigate or prosecute any alcohol or drug abuse patient.[facility]In the event this information is protected by the Federal Confidentiality of Alcohol and Drug Abuse Patient Records regulations: The Federal rules restrict any use of the information to criminally investigate or prosecute any alcohol or drug abuse patient.[facility]In the event this information is protected by the Federal Confidentiality of Alcohol and Drug Abuse Patient Records regulations: The Federal rules restrict any use of the information to criminally investigate or prosecute any alcohol or drug abuse patient.[facility] Reason for Visit (unrecogniz ed section and content) Reason Comments Rx Refills Reason Comments Heart Transplant Follow Up Labs Reason Comments Heart Transplant Follow Up Reason Comments Heart Transplant Follow Up labs Reason Comments Heart Transplant Follow Up Lab Meeting Reason Comments Refill Request Care Teams (unrecognized sec tion and content) Glove Sewer Relationship Specialty Start Date End Date Tao Rooney MD [address] [id number] PCP - General Family Practice 05/13/19 Glove Sewer Relationship Specialty Start Date End Date Tao Rooney MD [address] [id number] PCP - General Family Practice 05/13/19 Glove Sewer Relationship Specialty Start Date End Date Tao Rooney MD [address] [id number] PCP - General Family Practice 05/13/19 Glove Sewer Relationship Specialty Start Date End Date Tao Rooney MD [address] [id number] PCP - General Family Practice 05/13/19 Glove Sewer Relationship Specialty Start Date End Date Tao Rooney MD [address] [id number] PCP - General Family Practice 05/13/19 Glove Sewer Relationship Specialty Start Date End Date Tao Rooney MD [address] [id number] PCP - General Family Medicine 05/13/19 INFORMATION SOURCE (unrecogn ized section and content) DATE CREATED AUTHOR 09/01/2022 [facility] DATE CREATED AUTHOR AUTHOR'S ORGANIZ ATION 03/09/2023 [facility] DATE CREATED AUTHOR AUTHOR'S ORGANIZ ATION 04/08/2023 Raheem Mcgraw [facility] DATE CREATED AUTHOR AUTHOR'S ORGANIZ ATION 11/14/2023 [facility] FOR RECORDS PERTAINING TO PATIENTS WHO ARE [...] BE BASED ON THE PRIMARY CLINICAL RECORDS. [facility]. provides no warranty or guarantee of the accuracy or completeness of information in this document.
[2023-12-30] MEDS: 0.9 % SODIUM CHLORIDE 1,000 ML 75 ML IV (18:29)
[2023-12-30 18:45] LABS: Free T3 1.85 pg/mL (2.18-3.98); Magnesium 1.1 mg/dL (1.8-2.4); Thyroid Stimulating Hormone 1.649 uIU/mL (0.358-3.740)
[2023-12-30] MEDS: HYDRALAZINE HCL 20 MG/ML VIAL 10 MG IVP (18:57)
[2023-12-30] MEDS: LACTATED RINGER'S SOLUTION 1,000 ML 100 ML IV (19:58)
[2023-12-30 20:03] LABS: Troponin I High Sensitivity 11.9 pg/mL (4.0-51.3)
[2023-12-30] MEDS: METOPROLOL TARTRATE 50 MG TABLET PO (20:06)
[2023-12-30] MEDS: BUSPIRONE HCL 10 MG TABLET 5 MG PO (20:06)
[2023-12-30] MEDS: TACROLIMUS 0.5 MG 0.5 EACH PO (20:07)
[2023-12-30] MEDS: MYCOPHENOLATE MOFETIL 500 MG 500 EACH PO (20:07)
[2023-12-31] VITALS (21 sets, daily range): BP systolic 43–152; BP diastolic 31–83; PULSE 63–118; RESP 16–18; TEMP 36.8–37.8; O2SAT 90–93; BMI 23.3
[2023-12-31] MEDS: ACETAMINOPHEN 500 MG TABLET 1000 MG PO (01:34)
[2023-12-31] MEDS: LACTATED RINGER'S SOLUTION 1,000 ML 100 ML IV (06:15)
[2023-12-31 06:54] LABS: Basophils Percent Auto 0.2 % (0.2-2.0); Eosinophils Absolute Auto 0.1 10^3/uL (0.0-0.7); Eosinophils Percent Auto 0.8 % (0.9-7.0); Hematocrit 37.8 % (36.0-48.0); Hemoglobin 12.7 g/dL (12.0-16.0); Immature Granulocytes Abs Auto 0.04 10^3/uL (0.00-0.03); Immature Granulocytes Pct Auto 0.3 % (0.0-0.5); Lymphocytes Absolute Auto 0.4 10^3/uL (1.2-3.8); Lymphocytes Percent Auto 3.5 % (20.5-60.0); Mean Corpuscular HGB Conc 33.6 g/dL (29.9-35.2); Mean Corpuscular Hemoglobin 29.6 pg (26.7-34.0); Mean Corpuscular Volume 88.1 fL (81.0-99.0); Mean Platelet Volume 9.5 fL (9.5-13.5); Monocytes Absolute Auto 0.5 10^3/uL (0.3-0.8); Monocytes Percent Auto 4.4 % (1.7-12.0); Neutrophils Absolute Auto 10.5 10^3/uL (1.4-6.5); Neutrophils Percent Auto 90.8 % (43.0-75.0); Platelet Count 147 10^3/uL (150-450); Red Blood Count 4.29 10^6/uL (4.20-5.40); Red Cell Distribution Width 12.7 % (11.0-15.0); White Blood Count 11.6 10^3/uL (4.0-11.0)
--- NOTE | 2023-12-31 07:03 | PC.NURSE ---
Pt fell at 0651, staff entered pt room found pt supine with head facing wall feet facing exit door. Bi lateral elbows are red and swollen, bruised.Pt is pale with blood shot eyes, newly confused. Vitals stable at 98.3, 149/79, HR 62, 92 % RA 18 RR. Neuro exam complete. Head CT ordered and UE xrays. Pt did not lose consciousness. Physician notified.
[2023-12-31 07:05] LABS: Glucometer 140 mg/dL (74-106)
--- NOTE | 2023-12-31 07:10 | PC.NURSE ---
0663 Patient fell found on floor supine awake and confused. VS obtained and assessment completed. Patient's pupils equal and reactive and noted blood shot deep redness. Bilateral hand grasp push and pulls equal and strong. Bilateral legs push and pulls equal and strong. Patient having difficulty following directions. Patient denies c/o pain. Noted redness to posterior head and upper neck, Bilateral elbows noted redness, swelling, and bruising. Call light was in reach and bed alarm on and alarming, and non skid socks on. Dr. Davis notified received orders and will monitor patient. Patient having difficulty understanding instructions.
--- NOTE | 2023-12-31 07:17 | CT_ITS ---
The [address] [address] Patient Name: SYLVIA HANNA MRN: [id number] date: 1945 Sex: F Assigned Patient Location: [place] Current Patient Location: [place] Accession/Order Number: [id number] Exam Date: 12/31/2023 07:10 Report Date: 12/31/2023 07:42 At the request of: TAO ROONEY Procedure: CT head/brain wo con CLINICAL HISTORY: fall-hit head. EXAMINATION: Unenhanced CT scan of the brain: 12/31/2023. COMPARISON: Unenhanced CT scan of the brain: 12/30/2023, 06/06/2023, 01/16/2019. TECHNIQUE: 3 mm axial images from skull base through vertex without intravenous contrast were obtained. Sagittal, coronal reconstructions were also performed. FINDINGS: There is a calcified density in the left frontal lobe, which is stable dating back to the CT from 01/16/2019. The ventricles, sulcal, cisternal spaces are prominent with chronic microvascular ischemic changes surrounding the ventricles without discrete acute infarct, hemorrhage, mass, mass effect, or midline shift. The visualized intraorbital contents are normal. There is moderate opacification of ethmoid, frontal air cells. Thus the paranasal sinuses, mastoid air cells appear normal. Calvarium appears intact. CT/CT head/brain wo con IMPRESSION: 1. No acute infarct, hemorrhage, or acute intracranial injury or significant interval change since the previous examination. 2. Stable atrophic, chronic microvascular ischemic changes. 3. Inflammatory changes involving paranasal sinuses which are essentially unchanged since the study of 12/30/2023. 4. No definite skull fractures. Electronically authenticated by: SYDNEY LINTON Date: 12/31/2023 07:42
[2023-12-31 07:23] LABS: Alanine Aminotransferase 71 U/L (14-59); Albumin Globulin Ratio 1.2; Albumin Level 3.3 g/dL (3.4-5.0); Alkaline Phosphatase 115 U/L (46-116); Aspartate Amino Transferase 130 U/L (15-37); Bilirubin Total 1.4 mg/dL (0.2-1.0); Calcium 8.3 mg/dL (8.5-10.1); Carbon Dioxide 24.3 mmol/L (21.0-32.0); Chloride 99 mmol/L (98-107); Estimated GFR (African America 27 (>=60); Estimated GFR (Non-African Ame 22 (>=60); Globulin 2.8 g/dL; Glucose 151 mg/dL (74-106); Potassium 4.3 mmol/L (3.5-5.1); Sodium 133 mmol/L (136-145); Total Protein 6.1 g/dL (6.4-8.2)
[2023-12-31 07:24] LABS: Magnesium 0.8 mg/dL (1.8-2.4)
--- NOTE | 2023-12-31 07:25 | XR_ITS ---
The [address] [address] Patient Name: SYLVIA HANNA MRN: [id number] date: 1945 Sex: F Assigned Patient Location: [place] Current Patient Location: [place] Accession/Order Number: [id number] Exam Date: 12/31/2023 07:15 Report Date: 12/31/2023 07:38 At the request of: TAO ROONEY Procedure: XR elbow TRISHA 2V EXAMINATION: XR elbow TRISHA 2V HISTORY: fell COMPARISON: No relevant comparison available. FINDINGS: RIGHT FINDINGS: BONES: Normal. No significant arthropathy or acute abnormality. SOFT TISSUES: Negative. No visible soft tissue swelling. OTHER: Negative. LEFT FINDINGS: BONES: Normal. No significant arthropathy or acute abnormality. SOFT TISSUES: Negative. No visible soft tissue swelling. OTHER: Negative. XR/XR elbow TRISHA 2V IMPRESSION: RIGHT CONCLUSION: No acute fracture LEFT CONCLUSION: No acute fracture Electronically authenticated by: JAZLYN STRICKLAND Date: 12/31/2023 07:38
[2023-12-31] MEDS: 0.9 % SODIUM CHLORIDE 1,000 ML 1000 ML IV (07:52)
[2023-12-31 07:58] LABS: Alanine Aminotransferase 72 U/L (14-59); Albumin Globulin Ratio 1.1; Albumin Level 3.3 g/dL (3.4-5.0); Alkaline Phosphatase 110 U/L (46-116); Aspartate Amino Transferase 130 U/L (15-37); Bilirubin Direct 0.4 mg/dL (0.0-0.2); Bilirubin Total 1.4 mg/dL (0.2-1.0); Globulin 2.9 g/dL; Total Protein 6.2 g/dL (6.4-8.2)
--- NOTE | 2023-12-31 08:01 | P.HP_ITS ---
H&P: HPI History of Present Illness Chief complaint: PASSED OUT 2X TODAY, HEADACHE, syncopy Narrative: Patient was seen and evaluated in the emergency room with recent syncopal episodes x 2. Did not strike her head. CT scan of head in ER was normal. Patient was admitted for workup and treatment of same. Patient was hypertensive in the ER. This morning she has positive orthostatic. With blood pressure down to the 40s with standing. 2 hours after that she did sustain a fall striking her head. Repeat CT scan of head and x-rays of elbow were normal. No headache. Review of Systems ROS Status of ROS 10 or more systems reviewed and unremark able except as noted in history and below Constitutional Reports: fever Respiratory Reports: cough Gastrointestinal Reports: abdominal pain, nausea and vomiting [facility] Medical History (Updated 12/30/23 @ 18:00 by Martin Thomson MD) Acute kidney injury ?N17.9 - Acute kidney failure, unspecified (ICD-10) Gastroenteritis ?K52.9 - Noninfective gastroenteritis and colitis, unspecified (ICD-10) Heart transplant recipient ?Z94.1 - Heart transplant status (ICD-10) Heart transplant recipient ?Z94.1 - Heart transplant status (ICD-10) Social History (Updated 06/07/23 @ 22:11 by Lizeth Ho) Within the past year, how often did you have a drink containing alcohol: never Score interpretation: A score less than 3 is consistent with normal alcohol consumption. Smoking status: Never smoker Non-prescribed substance use: denies use Highest level of school completed/degree received: high school graduate Are you now , , , , never or living with a partner: In a typical week, how many times do you talk on the telephone with family, friends, or neighbors: 3 or more times per week How often do you get together with friends or relatives: 3 or more times per week How often do you attend rastafarian or holiness services: 4 or more times per year Do you belong to any clubs or organizations such as rastafarian groups unions, fraternal or athletic groups, or school groups: no Total score: 3 Score interpretation: A score of greater than or equal to 2 indicates the lowest level of social isolation. Little interest or pleasure in doing things: not at all Feeling down, depressed, or hopeless: not at all Feel stressed/tense/nervous/anxious/difficulty sleeping: not at all Do you think of yourself as: straight/heterosexual Gender Identity: female Meds Home Medications and Allergies Home Medications Medication Instructions Recorded Confirmed Type aspirin 81 mg tablet,delayed 81 mg PO DAILY 06/06/23 12/30/23 History release sozwqb-neyrmdjy-nbuzerj 3 cap PO TID 06/06/23 12/30/23 History 36,000-114,000-180,000 unit capsule,delay rel (Creon) losartan 50 mg tablet 50 mg PO DAILY 06/06/23 12/30/23 History magnesium 250 mg tablet 250 mg PO DAILY 06/06/23 12/30/23 History metoprolol tartrate 50 mg tablet 50 mg PO Q12H 06/06/23 12/30/23 History omega-3 fatty acids-fish oil 360 1 cap PO DAILY 06/06/23 12/30/23 History mg-1,200 mg capsule (Fish Oil) pramipexole 0.5 mg tablet 0.5 mg PO DAILY 06/06/23 12/30/23 History simvastatin 20 mg tablet 20 mg PO DAILY 06/06/23 12/30/23 History tacrolimus 0.5 mg capsule, 0.5 mg PO Q12H 06/06/23 12/30/23 History immediate-release levothyroxine 112 mcg tablet 112 mcg PO QDAY 06/07/23 12/30/23 History ondansetron 4 mg disintegrating 4 mg PO Q6H PRN nausea and 06/08/23 12/30/23 Rx tablet vomiting #14 tabs buspirone 5 mg tablet 5 mg PO BID 08/10/23 12/30/23 History doxazosin 2 mg tablet 2 mg PO QDAY 08/10/23 12/30/23 History carvedilol 25 mg tablet 25 mg PO BID 12/30/23 12/30/23 History escitalopram oxalate 10 mg tablet 10 mg PO .QD 12/30/23 12/30/23 History hydroxyzine pamoate 25 mg capsule 25 mg PO .QD PRN anxiety 12/30/23 12/30/23 History mycophenolate mofetil 250 mg 500 mg PO BID 12/31/23 12/31/23 History capsule tacrolimus 1 mg capsule, 1 mg PO Q12H 12/31/23 12/31/23 History immediate-release Allergies Allergy/AdvReac Type Severity Reaction Status Date / Time promethazine [From Phenergan] AdvReac Severe Confusion Verified 06/07/23 14:45 ciprofloxacin [From Cipro] AdvReac Mild HIVES Verified 06/07/23 18:44 Exam Constitutional Vital Signs, click to edit/add: Last Vital Signs Temp 100.1 F 12/31/23 07:59 Pulse 91 H 12/31/23 07:58 Resp 16 12/31/23 07:59 BP 137/65 12/31/23 07:58 Pulse Ox 92 L 12/31/23 07:59 O2 Del Method Room Air 12/31/23 07:59 Documenting provider has reviewed patient's vital signs: yes Common normals: no apparent distress Chest Common normals: inspection of chest normal Respiratory Common normals: normal respiratory effort and clear to auscultation bilaterally Cardio Common normals: regular rate, regular rhythm and no murmurs GI Common normals: Normal to inspection, nondistended, normoactive bowel sounds present and soft to palpation; tender (Mild diffuse tenderness) Neuro Common normals: oriented x3, CN's II-XII intact bilaterally and moves all extrem ities Results Labs Labs: Short CBC 12/30/23 12/31/23 Range/Units 16:45 06:40 WBC 7.7 11.6 H (4.0-11.0) 10^3/uL Hgb 12.8 12.7 (12.0-16.0) g/dL Hct 38.9 37.8 (36.0-48.0) % Plt Count 170 147 L (150-450) 10^3/uL BMP 12/30/23 12/31/23 16:45 06:40 Sodium 134 L 133 L Potassium 4.0 4.3 Chloride 100 99 Carbon Dioxide 22.2 24.3 BUN 31.0 H 34.0 H Creatinine 1.97 H 2.13 H Glucose 234 H 151 H Calcium 8.6 8.3 L Liver Function 12/31/23 Range/Units 06:40 Total Bilirubin 1.4 H (0.2-1.0) mg/dL AST 130 H (15-37) U/L ALT 71 H (14-59) U/L Alkaline Phosphatase 115 (46-116) U/L Albumin 3.3 L (3.4-5.0) g/dL Assessment and Plan Assessment and Plan (1) Syncope: (2) Heart transplant recipient: Plan Uncontrolled hypertension on admission, now with significant orthostatic hypotension-hold off on blood pressure medications. She would likely need blood pressure medication but need to adjust doses to prevent further syncopal episodes. Her syncopal episodes are likely related to her orthostatic hypotension. Telemetry does not show any significant bradycardia. Patient not eating or drinking the last couple days. Significant dehydration with acute kidney injury with creatinine 60% higher than baseline. Continue with fluid resuscitation. Her BNP is elevated but I suspect this is chronic versus related to her creatinine being higher as well. Will repeat labs later today to see if making progress. Low-grade fever and leukocytosis-urine culture results are pending. Likely start antibiotics based on urinalysis. Check respiratory panel and stool PCR Severe hypomagnesemia-patient not taking her supplementation. Will give IV dose this morning and increase oral dose Mild abdominal discomfort with elevated liver function test with some nausea vomiting prior to admission. No further emesis since she been here. LFTs are elevated. Try to obtain liver profile from ER sample. Repeat labs later today. HypoThyroid-check levels Thrombocytopenia-likely secondary to the above-continue to monitor Acute kidney injury with creatinine 60% higher than baseline-IV fluid resuscitation. Consider ultrasound Heart transplant recipient-verify medications she takes at home more consistent with over giving her here check on echocardiogram. Check consult to cardiology With progression of symptoms and kidney function, patient unable to be discharged today so medical treatment span least 2 midnights likely 3. Change patient to inpatient status
--- NOTE | 2023-12-31 08:04 | CA_ITS ---
Patient Name: SYLVIA HANNA MR#: [id number] : 1945 Exam Date: 12/31/2023 Ordering Doctor: DR Vijay Davis . ECHOCARDIOGRAM REPORT PROCEDURE: CA ECHO DOPPLER COMPLETE INDICATIONS: Elevated bnp, hx of heart transplant (2005)t, hypertension, diabetes, pneumonia COMPARISON: None. DESCRIPTION: COMPLETE ECHOCARDIOGRAM Real-time transthoracic echocardiography with 2D, M-mode, spectral and color flow Doppler performed. QUALITY: Technical quality was good. 62 , 127#, BSA 1.58 m2 LEFT VENTRICLE: Normal chamber size. Borderline left ventricular hypertrophy. Hyperdynamic systolic function. Mild intracavitary obstruction related to hyperdynamic contractility. LV EF: Hyperdynamic left ventricular ejection fraction, (75%). DIASTOLIC: ATRIAL SEPTUM: Visually appears intact. LEFT ATRIUM: Enlarged consistent with heart transplant. RIGHT ATRIUM: Enlarged consistent with heart transplant. RIGHT VENTRICLE: Normal chamber size. TRICUSPID VALVE: Normal mobility and thickness. No stenosis with mild regurgitation. Doppler studies reveal mildly (35-45) elevated right sided pressures. RVSP 40 mmHg MITRAL VALVE: Normal mobility and thickness. No evidence of mitral valve stenosis. There is no mitral annular calcification. Mild mitral regurgitation. AORTIC VALVE: Normal trileaflet appearance. No visible sclerosis. Normal leaflet mobility. No evidence of aortic valve stenosis. Trivial aortic regurgitation. AORTIC ROOT: PULMONIC VALVE: Normal thickness and mobility. No stenosis. Trivial regurgitation. PERICARDIUM: No evidence of pericardial effusion. IVC: Collapses with inspirations. IVC is normal in size. PLEURA: CONCLUSION: 1. Hyperdynamic left ventricular systolic function. 2. Normal right ventricular size and systolic function. 3. Bilateral atrial enlargement. 4. No significant valvular dysfunction. 5. Mildly elevated right-sided pressures. 6. No pericardial effusion. Adult Echocardiography Procedure Report Left Ventricle LVEDD (3.7 - 5.6 cm): 3.87 cm LVESD (2.2 - 4.0 cm): 2.54 cm LVIVS thickness (0.6 - 1.2 cm): 1.08 cm LVPW thickness (0.5 - 1.0 cm): 1.05 cm LVOT Max Gradient: 5.10 mm[Hg] LVOT Area (cm2): 1.13 m/s Peak Velocity (LVOT): 1.13 m/s Mean Velocity (LVOT): 0.83 m/s LVOT Diameter 2.11 cm Left Atrium LA Volume Index (2D A2C): 41.15 ml/m2 Left Atrium Systolic Dimension: 4.52 cm Mitral Valve MV E to A Ratio: 2.57, 2.64 Mitral Valve A-Wave Peak Velocity: 0.49 m/s Mitral Valve E-Wave Peak Velocity: 1.27 m/s Right Ventricle Aorta AO Root Diam: 2.92 cm Aortic Valve AoV Area (Peak Chris): 2.86 cm2, 2.86 cm2 AoV Area (VTI): 3.01 cm2, 3.01 cm2 Peak Velocity(Antegrade Flow): 1.38 m/s Peak Gradient(Antegrade Flow): 7.59 mm[Hg] Mean Velocity(Antegrade Flow): 1.02 m/s Mean Gradient(Antegrade Flow): 4.75 mm[Hg] Velocity Time Integral: 25.18 cm Tricuspid Valve Peak Velocity (Regurgitant Flow): 3.03 m/s Pulmonic Valve Peak Velocity: 1.06 m/s Peak Gradient: 4.54 mm[Hg], 4.47 mm[Hg] Right Atrium Right Atrium Systolic Pressure: 37.56 ml, 37.56 ml Dictated by: Jameel Daly M.D. on 12/31/2023 at 10:36 Approved by: Jameel Daly M.D. on 12/31/2023 at 10:42
[2023-12-31 08:17] LABS: Adenovirus NOT DETECTED (NOT DETECTE); Bordetella parapertussis NOT DETECTED (NOT DETECTE); Coronavirus 229E NOT DETECTED (NOT DETECTE); Coronavirus HKU1 NOT DETECTED (NOT DETECTE); Coronavirus NL63 NOT DETECTED (NOT DETECTE); Coronavirus OC43 NOT DETECTED (NOT DETECTE); Human Metapneumovirus NOT DETECTED (NOT DETECTE); Human Rhinovirus/Enterovirus NOT DETECTED (NOT DETECTE); Influenza A NOT DETECTED (NOT DETECTE); Influenza B NOT DETECTED (NOT DETECTE); Mycoplasma pneumoniae NOT DETECTED (NOT DETECTE); Parainfluenza Virus 1 NOT DETECTED (NOT DETECTE); Parainfluenza Virus 2 NOT DETECTED (NOT DETECTE); Parainfluenza Virus 3 NOT DETECTED (NOT DETECTE); Parainfluenza Virus 4 NOT DETECTED (NOT DETECTE); Respiratory Syncytial Virus NOT DETECTED (NOT DETECTE); SARS-CoV-2 NOT DETECTED (NOT DETECTE)
[2023-12-31] MEDS: LEVOTHYROXINE SODIUM 112 MCG TABLET PO (09:39)
[2023-12-31] MEDS: MAGNESIUM OXIDE 400 MG TABLET PO ×2 (09:39→20:25)
[2023-12-31] MEDS: ENSURE HP 237 ML LIQUID PO ×2 (09:39→20:25)
[2023-12-31] MEDS: LIPASE/PROTEASE/AMYLASE CAPSULE 3 CAP PO ×3 (09:40→16:38)
[2023-12-31] MEDS: FISH OIL 1,000 MG CAPSULE 1000 MG PO (09:40)
[2023-12-31] MEDS: ESCITALOPRAM 10 MG TABLET PO (09:40)
[2023-12-31] MEDS: ASPIRIN 81 MG TABLET.DR PO (09:40)
[2023-12-31] MEDS: TACROLIMUS 0.5 MG 0.5 EACH PO ×2 (09:40→20:27)
[2023-12-31] MEDS: PRAMIPEXOLE 0.5 MG TABLET 1 EACH PO (09:41)
[2023-12-31] MEDS: 0.9 % SODIUM CHLORIDE 1,000 ML 100 ML IV ×2 (09:42→19:40)
[2023-12-31] MEDS: MYCOPHENOLATE MOFETIL 500 MG 500 EACH PO ×2 (09:44→20:26)
--- NOTE | 2023-12-31 10:31 | P.CACN_ITS ---
<Statement entered by Wang Cross MD - 01/01/24 12:48> This documentation has been reviewed and approved. I have reviewed and evaluated and agree with the plan as mentioned. History of Present Illness History of Present Illness Consult date: 12/31/23 Requesting physician: Vijay Davis Chief complaint: PASSED OUT 2X TODAY, HEADACHE, syncopy Narrative: She is a 75-year-old woman with prior history of nonischemic cardiomyopathy, status post LVAD placement in the past and followed by cardiac transplantation on 01/18/2006. she was taken to [facility] ER for syncope x2. she has not been eating/drink very much over the last several days. on admission she was noted to have positive orthostatic hypotension which is likely the reason for her symptoms. her blood work shows DREW she was last seen 11/[address] light who changed her from toprol to coreg for HTN, BP in office at the time showed SBP 200. She has been treated with fluids so far and overnight she actually had a syncopal episode with fall when getting up going to the bathroom, had a CT scan of her head which was negative for bleed Her magnesium is 0.8 this morning and she continues to have DREW About a month ago she had influenza and developed pneumonia and since she has recovered but states her appetite has not recovered, not eating or drinking much throughout the day and over the last week she has had several episodes of nausea and vomiting as well as loose stools. She denies any chest pain, shortness of breath, GEE, LE edema. Review of Systems ROS Constitutional Reports: fatigue Cardiovascular Reports: lightheadedness; Denies: chest pain, palpitations, edema, swelling of feet/ankles, shortness of breath with exertion or shortness of breath when lying down Respiratory Denies: shortness of breath [facility] Medical History (Updated 12/30/23 @ 18:00 by Martin Thomson MD) Acute kidney injury ?N17.9 - Acute kidney failure, unspecified (ICD-10) Gastroenteritis ?K52.9 - Noninfective gastroenteritis and colitis, unspecified (ICD-10) Heart transplant recipient ?Z94.1 - Heart transplant status (ICD-10) Heart transplant recipient ?Z94.1 - Heart transplant status (ICD-10) Social History (Updated 06/07/23 @ 22:11 by Lizeth Ho) Within the past year, how often did you have a drink containing alcohol: never Score interpretation: A score less than 3 is consistent with normal alcohol consumption. Smoking status: Never smoker Non-prescribed substance use: denies use Highest level of school completed/degree received: high school graduate Are you now , , , , never or living with a partner: In a typical week, how many times do you talk on the telephone with family, friends, or neighbors: 3 or more times per week How often do you get together with friends or relatives: 3 or more times per week How often do you attend quaker or mormonism services: 4 or more times per year Do you belong to any clubs or organizations such as quaker groups unions, frooly or athletic groups, or school groups: no Total score: 3 Score interpretation: A score of greater than or equal to 2 indicates the lowest level of social isolation. Little interest or pleasure in doing things: not at all Feeling down, depressed, or hopeless: not at all Feel stressed/tense/nervous/anxious/difficulty sleeping: not at all Do you think of yourself as: straight/heterosexual Gender Identity: female Meds Home Medications and Allergies Home Medications Medication Instructions Recorded Confirmed Type aspirin 81 mg tablet,delayed 81 mg PO DAILY 06/06/23 12/30/23 History release dcylhc-znzwkmuu-wmyufhy 3 cap PO TID 06/06/23 12/30/23 History 36,000-114,000-180,000 unit capsule,delay rel (Creon) losartan 50 mg tablet 50 mg PO DAILY 06/06/23 12/30/23 History magnesium 250 mg tablet 250 mg PO DAILY 06/06/23 12/30/23 History omega-3 fatty acids-fish oil 360 1 cap PO DAILY 06/06/23 12/30/23 History mg-1,200 mg capsule (Fish Oil) pramipexole 0.5 mg tablet 0.5 mg PO DAILY 06/06/23 12/30/23 History simvastatin 20 mg tablet 20 mg PO DAILY 06/06/23 12/30/23 History tacrolimus 0.5 mg capsule, 0.5 mg PO Q12H 06/06/23 12/30/23 History immediate-release levothyroxine 112 mcg tablet 112 mcg PO QDAY 06/07/23 12/30/23 History carvedilol 25 mg tablet 25 mg PO BID 12/30/23 12/30/23 History escitalopram oxalate 10 mg tablet 10 mg PO .QD 12/30/23 12/30/23 History hydroxyzine pamoate 25 mg capsule 25 mg PO .QD PRN anxiety 12/30/23 12/30/23 History mycophenolate mofetil 250 mg 500 mg PO BID 12/31/23 12/31/23 History capsule Allergies Allergy/AdvReac Type Severity Reaction Status Date / Time promethazine [From Phenergan] AdvReac Severe Confusion Verified 06/07/23 14:45 ciprofloxacin [From Cipro] AdvReac Mild HIVES Verified 06/07/23 18:44 Exam Constitutional Vital Signs, click to edit/add: Last Vital Signs Temp 100.1 F 12/31/23 07:59 Pulse 91 H 12/31/23 07:58 Resp 16 12/31/23 07:59 BP 137/65 12/31/23 07:58 Pulse Ox 92 L 12/31/23 07:59 O2 Del Method Room Air 12/31/23 07:59 Documenting provider has reviewed patient's vital signs: yes Common normals: no apparent distress and oriented x3 General appearance: cooperative, comfortable and well kempt Orientation/consciousness: Yes awake, Yes oriented to person, Yes oriented to place and Yes oriented to time HENIN Common normals: normocephalic Respiratory Common normals: normal respiratory effort, no retractions, no use of accessory muscles and clear to auscultation bilaterally Effort & inspection: able to speak in complete sentences and symmetric chest movement Cardio Common normals: no JVD, regular rate and regular rhythm Rate: regular rate Rhythm: regular rhythm Extremity Common normals: normal to inspection Results Labs and Meds Lab results: Cardiac Enzymes 12/31/23 12/31/23 Range/Units 06:40 06:40 AST 130 H 130 H (15-37) U/L CBC 12/30/23 12/31/23 Range/Units 16:45 06:40 WBC 7.7 11.6 H (4.0-11.0) 10^3/uL RBC 4.41 4.29 (4.20-5.40) 10^6/uL Hgb 12.8 12.7 (12.0-16.0) g/dL Hct 38.9 37.8 (36.0-48.0) % Plt Count 170 147 L (150-450) 10^3/uL Neut # (Auto) 5.9 10.5 H (1.4-6.5) 10^3/uL Lymph # (Auto) 1.0 L 0.4 L (1.2-3.8) 10^3/uL [place] # (Auto) 0.7 0.5 (0.3-0.8) 10^3/uL Eos # (Auto) 0.1 0.1 (0.0-0.7) 10^3/uL Baso # (Auto) 0.0 0.0 (0.0-0.1) 10^3/uL Comprehensive Metabolic Panel 12/30/23 12/31/23 12/31/23 Range/Units 16:45 06:40 06:40 Sodium 134 L 133 L (136-145) mmol/L Potassium 4.0 4.3 (3.5-5.1) mmol/L Chloride 100 99 (98-107) mmol/L Carbon Dioxide 22.2 24.3 (21.0-32.0) mmol/L BUN 31.0 H 34.0 H (7.0-18.0) mg/dL Creatinine 1.97 H 2.13 H (0.55-1.02) mg/dL Glucose 234 H 151 H (74-106) mg/dL Calcium 8.6 8.3 L (8.5-10.1) mg/dL Direct Bilirubin 0.4 H (0.0-0.2) mg/dL AST 130 H 130 H (15-37) U/L ALT 71 H (14-59) U/L Alkaline Phosphatase (46-116) U/L Total Protein (6.4-8.2) g/dL Albumin (3.4-5.0) g/dL 12/31/23 12/31/23 12/31/23 Range/Units 06:40 06:40 06:40 Sodium (136-145) mmol/L Potassium (3.5-5.1) mmol/L Chloride (98-107) mmol/L Carbon Dioxide (21.0-32.0) mmol/L BUN (7.0-18.0) mg/dL Creatinine (0.55-1.02) mg/dL Glucose (74-106) mg/dL Calcium (8.5-10.1) mg/dL Direct Bilirubin (0.0-0.2) mg/dL AST (15-37) U/L ALT 72 H (14-59) U/L Alkaline Phosphatase 115 110 (46-116) U/L Total Protein 6.1 L 6.2 L (6.4-8.2) g/dL Albumin 3.3 L (3.4-5.0) g/dL 12/31/23 Range/Units 06:40 Sodium (136-145) mmol/L Potassium (3.5-5.1) mmol/L Chloride (98-107) mmol/L Carbon Dioxide (21.0-32.0) mmol/L BUN (7.0-18.0) mg/dL Creatinine (0.55-1.02) mg/dL Glucose (74-106) mg/dL Calcium (8.5-10.1) mg/dL Direct Bilirubin (0.0-0.2) mg/dL AST (15-37) U/L ALT (14-59) U/L Alkaline Phosphatase (46-116) U/L Total Protein (6.4-8.2) g/dL Albumin 3.3 L (3.4-5.0) g/dL Intake and Output 12/30/23 12/31/23 12/31/23 23:59 07:59 15:59 Intake Total 240 / 1590 1350 / 1590 Output Total 600 / 700 100 / 700 550 / 550 Balance -360 / 890 1250 / 890 -550 / -550 Intake: Oral 240 / 240 IV 1350 / 1350 0.9 % Sodium Chloride 1,000 ml 200 / 200 @ 75 mls/hr IV .[id number] ONE Rx# :[id number] Lactated Ringer's Solution 1, 1150 / 1150 000 ml @ 100 mls/hr IV .Q10H [facility] Rx#:[id number] Output: Urine 300 / 400 100 / 400 550 / 550 Emesis 300 / 300 Other: # Emeses 1 Weight 57.9 kg Imaging and Cardiology Echo: report reviewed EKG Interpretation EKG: WNL Assessment and Plan Assessment and Plan (1) Syncope: (2) Heart transplant recipient: Plan Syncope / orthostatic hypotension -for now would continue to hydrate with IVF and correct electrolyte abnormalities -she has had positive orthostatic BP , which is likely the cause of syncope -had syncopal episode this morning 12/31 and SBP was in 40s and was given a 1L fluid bolus, her recheck later showed fairly decent BP with a less than 10pt SBP drop , with SBP 120-130s -she did have SBP in 180s 12/30/23 -would consider pyridostigmine vs midodrine if orthostatic hypotension does not resolve but given she has had hypertensive readings would focus on IVF/electrolyte replacement, ,Mg this AM 12/31 was 0.8 DREW -contine IVF Heart Tx recipent -tte 12/31/23s is stable, EF 55%, no valvular concerns -BNP elevated but likely chronically elevated given transplant hx and DREW -she appears compensated and euvolemic
[2023-12-31] MEDS: MAGNESIUM SULFATE IN WATER 2 GM/50 ML PREMIX IV (11:32)
--- NOTE | 2023-12-31 14:04 | SWNOTE1 ---
SW met with pt after physical therapy worked with her. Pt lives at [facility]. She is usually independent and driving, etc. Pt is on 3rd floor, but there is an elevator. Pt stated therapy said she needed a walker, but she voiced she does not need a rolling walker. SW asked if she had some falls recently and a rolling walker may help with this. Pt voiced it might, but she wants to wait until tomorrow and see if she is doing better. SW asked pt if she had any Home Health, she stated no. SW to check back on pt tomorrow in regards to walker. SW checked therapy note and home health is recommended. SW to talk with pt about this.
--- NOTE | 2023-12-31 14:10 | SWNOTE1 ---
SW reviewed IMM form with pt, she voiced understanding, no questions. Pt signed form, original given to pt and copy placed on chart.
[2023-12-31 14:21] LABS: Alanine Aminotransferase 21 U/L (14-59); Albumin Globulin Ratio 1.2; Albumin Level 3.6 g/dL (3.4-5.0); Alkaline Phosphatase 111 U/L (46-116); Aspartate Amino Transferase 20 U/L (15-37); Bilirubin Direct 0.2 mg/dL (0.0-0.2); Bilirubin Total 0.8 mg/dL (0.2-1.0); Globulin 2.9 g/dL; Total Protein 6.5 g/dL (6.4-8.2)
[2023-12-31 14:30] LABS: Alanine Aminotransferase 216 U/L (14-59); Albumin Level 2.8 g/dL (3.4-5.0); Alkaline Phosphatase 115 U/L (46-116); Anion Gap 14.3; Aspartate Amino Transferase 318 U/L (15-37); BUN Creatinine Ratio 17.8; Bilirubin Total 1.6 mg/dL (0.2-1.0); Calcium 7.7 mg/dL (8.5-10.1); Chloride 99 mmol/L (98-107); Estimated GFR (African America 31 (>=60); Estimated GFR (Non-African Ame 25 (>=60); Globulin 2.7 g/dL; Glucose 233 mg/dL (74-106); Potassium 4.3 mmol/L (3.5-5.1); Sodium 129 mmol/L (136-145); Total Protein 5.5 g/dL (6.4-8.2)
--- NOTE | 2023-12-31 15:08 | SWNOTE1 ---
MAMADOU went back in room and spoke with pt about Home health services coming in. Pt is agreeable and voiced some people at [facility] have HH. SW presented star rating list from medicare.gov, pt does not have a preference and will use whoever takes her insurance. MAMADOU to send to [facility].
--- NOTE | 2023-12-31 16:28 | SWNOTE1 ---
SW received call back from [facility] and pt has dual plan and they can't accept, they are working on contract but don't have it yet. SW to attempt another company tomorrow.
[2023-12-31 20:49] LABS: Bilirubin Urine NEGATIVE (NEGATIVE); Blood Urine TRACE-I (NEGATIVE); Clarity Urine CLEAR (CLEAR); Color Urine LT. YELLOW (YELLOW); Glucose Urine UA 100 mg/dL (NEGATIVE); Ketones Urine NEGATIVE (NEGATIVE); Leukocyte Esterase Urine SMALL (NEGATIVE); Nitrite Urine NEGATIVE (NEGATIVE); Protein Urine 30 mg/dL (NEG/TRACE)
[2023-12-31 20:58] LABS: Bacteria Urine NONE SEEN #/HPF (NONE SEEN); Cast Seen? NONE SEEN #/LPF (NONE SEEN); Crystals Seen? None Seen #/HPF (None Seen); Mucus Urine NONE SEEN (NONE SEEN); RBC Urine 0-2 #/HPF (0-2); Squamous Epithelial Cell Urine FEW #/LPF (NONE/RARE); Urine Culture Indicated YES
[2024-01-01] VITALS (10 sets, daily range): BP systolic 124–158; BP diastolic 74–80; PULSE 75–91; RESP 16; TEMP 36.9–37.1; O2SAT 90–94
[2024-01-01] MEDS: 0.9 % SODIUM CHLORIDE 1,000 ML 100 ML IV (05:50)
[2024-01-01] MEDS: LEVOTHYROXINE SODIUM 112 MCG TABLET PO (05:50)
[2024-01-01 06:13] LABS: Basophils Percent Auto 0.3 % (0.2-2.0); Eosinophils Absolute Auto 0.1 10^3/uL (0.0-0.7); Eosinophils Percent Auto 1.3 % (0.9-7.0); Hematocrit 35.1 % (36.0-48.0); Immature Granulocytes Abs Auto 0.04 10^3/uL (0.00-0.03); Immature Granulocytes Pct Auto 0.5 % (0.0-0.5); Lymphocytes Absolute Auto 0.5 10^3/uL (1.2-3.8); Lymphocytes Percent Auto 6.2 % (20.5-60.0); Mean Corpuscular HGB Conc 31.3 g/dL (29.9-35.2); Mean Corpuscular Hemoglobin 28.9 pg (26.7-34.0); Mean Corpuscular Volume 92.4 fL (81.0-99.0); Monocytes Absolute Auto 0.6 10^3/uL (0.3-0.8); Monocytes Percent Auto 7.9 % (1.7-12.0); Neutrophils Absolute Auto 6.6 10^3/uL (1.4-6.5); Neutrophils Percent Auto 83.8 % (43.0-75.0); Platelet Count 121 10^3/uL (150-450); Red Cell Distribution Width 12.9 % (11.0-15.0); White Blood Count 7.9 10^3/uL (4.0-11.0)
[2024-01-01 06:34] LABS: Alanine Aminotransferase 159 U/L (14-59); Albumin Globulin Ratio 0.9; Albumin Level 2.6 g/dL (3.4-5.0); Alkaline Phosphatase 104 U/L (46-116); Anion Gap 13.2; Aspartate Amino Transferase 140 U/L (15-37); BUN Creatinine Ratio 20.9; Bilirubin Total 1.1 mg/dL (0.2-1.0); Calcium 7.6 mg/dL (8.5-10.1); Carbon Dioxide 18.7 mmol/L (21.0-32.0); Chloride 104 mmol/L (98-107); Estimated GFR (African America 38 (>=60); Estimated GFR (Non-African Ame 32 (>=60); Globulin 2.9 g/dL; Glucose 144 mg/dL (74-106); Magnesium 1.7 mg/dL (1.8-2.4); Potassium 3.9 mmol/L (3.5-5.1); Sodium 132 mmol/L (136-145); Total Protein 5.5 g/dL (6.4-8.2)
--- NOTE | 2024-01-01 07:41 | P.DS_ITS ---
DS: Providers Provider Date of admission: 12/31/23 08:04 Primary care physician: Vijay Davis MD Consults: 12/30/23 Consult to Dietitian Routine Reason For Exam: fair appetite Reason for consultation: fair appetitite Has provider been notified: No 12/31/23 Occupational Therapy Eval and Treat Routine Reason for consultation: weakness Physical Therapy Eval and Treat Routine Reason for consultation: weakness 12/31/23 08:15 Consult to Cardiology Routine Reason for consultation: elevated bnp, heart transplant Has provider been notified: No 12/31/23 12:52 Occupational Therapy Eval and Treat Routine Reason for consultation: eval Has provider been notified: No Physical Therapy Eval and Treat Routine Reason for consultation: eval Has provider been notified: No DS: Diagnosis Discharge Diagnosis (1) Syncope: (2) Heart transplant recipient: Plan Uncontrolled hypertension on admission, now with significant orthostatic hypotension Significant dehydration with acute kidney injury with creatinine 60% higher than baseline. Low-grade fever and leukocytosis-urine culture results are pending Severe hypomagnesemia Mild abdominal discomfort with elevated liver function test with some nausea vomiting prior to admission. HypoThyroid- Thrombocytopenia Acute kidney injury with creatinine 60% higher than baseline Heart transplant recipient Acute UTI with leukocytosis Hyponatremia Iron deficiency anemia Elevated liver function test secondary to passive congestion secondary to low flow state of hypotension and dehydration DS: Summary Hospital Course Hospital Course: Patient admitted after recurring syncopal episodes. Orthostatic vitals completed here did not show significant orthostasis with blood pressure upon standing and with drop into the 40s. She did have syncope with that. Couple hours later she got up on her own and had another syncopal episode. CT scan and elbow x-rays were done which were unremarkable. Medications were adjusted yesterday. She been off all of her blood pressure medications. Given a couple of fluid boluses since admission. Her BNP was elevated yesterday. It is further elevated today but she has no peripheral edema and her lung exam is completely clear. Her creatinine is closer to her baseline. She is 1.5 today. At this point we will saline lock. Have her ambulate. If no significant dyspnea she can be discharged home in improving condition. Medications see list. Follow-up with me in the office next week. Does appear to have an acute UTI so add antibiotics to her regiment today. Liver function is improving leukocytosis has resolved hyponatremia improving, with her iron deficiency anemia will monitor as an outpatient Time Spent with Patient Time attestation: Total time spent providing and/or coordinating discharge services: Exam Constitutional Vital Signs, click to edit/add: Last Vital Signs Temp 98.5 F 01/01/24 05:46 Pulse 75 01/01/24 06:07 Resp 16 01/01/24 05:46 BP 158/74 H 01/01/24 05:46 Pulse Ox 90 L 01/01/24 05:46 O2 Del Method Room Air 01/01/24 05:46 Documenting provider has reviewed patient's vital signs: yes Common normals: no apparent distress Chest Common normals: inspection of chest normal Respiratory Common normals: normal respiratory effort and clear to auscultation bilaterally Cardio Common normals: regular rate, regular rhythm and no murmurs GI Common normals: Normal to inspection, nondistended, normoactive bowel sounds present and soft to palpation; tender (Mild diffuse tenderness) Neuro Common normals: oriented x3, CN's II-XII intact bilaterally and moves all extremities DS: Data Data Completed and Pending Labs on day of discharge: Labs from last 24 hours 01/01/24 12/31/23 12/31/23 05:25 20:37 13:32 WBC 7.9 RBC 3.80 L Hgb 11.0 L Hct 35.1 L MCV 92.4 MCH 28.9 MCHC 31.3 RDW 12.9 Plt Count 121 L MPV 10.0 Neut % (Auto) 83.8 H Lymph % (Auto) 6.2 L [place] % (Auto) 7.9 Eos % (Auto) 1.3 Baso % (Auto) 0.3 Neut # (Auto) 6.6 H Lymph # (Auto) 0.5 L [place] # (Auto) 0.6 Eos # (Auto) 0.1 Baso # (Auto) 0.0 Abs Immat Gran (auto) 0.04 H Imm/Tot Granulo (auto) 0.5 Sodium 132 L 129 L Potassium 3.9 4.3 Chloride 104 99 Carbon Dioxide 18.7 L 20.0 L Anion Gap 13.2 14.3 BUN 33.0 H 34.0 H Creatinine 1.58 H 1.91 H Est GFR ( Amer) 38 L 31 L Est GFR (Non-Af Amer) 32 L 25 L BUN/Creatinine Ratio 20.9 17.8 Glucose 144 H 233 H Calcium 7.6 L 7.7 L Magnesium 1.7 L Total Bilirubin 1.1 H 1.6 H Direct Bilirubin AST 140 H 318 H ALT 159 H 216 H Alkaline Phosphatase 104 115 NT-Pro-B Natriuret Pep 37684.0 H* 8239.0 H* Total Protein 5.5 L 5.5 L Albumin 2.6 L 2.8 L Globulin 2.9 2.7 Albumin/Globulin Ratio 0.9 1.0 Urine Color Lt. yellow Urine Clarity Clear Urine pH 6.0 Ur Specific [place] 1.020 Urine Protein 30 A Urine Glucose (UA) 100 A Urine Ketones Negative Urine Occult Blood Trace-i Urine Nitrite Negative Urine Bilirubin Negative Urine Urobilinogen 1.0 Ur Leukocyte Esterase Small A Urine RBC 0-2 Urine WBC 5-10 A Ur Squamous Epith Cells Few A Urine Crystals None seen Urine Bacteria None seen Urine Casts None seen Urine Mucus None seen Ur Culture Indicated? Yes Adenovirus (PCR) C. pneumoniae DNA (PCR) Coronavirus Type OC43 Coronavirus Type HKU1 Coronavirus Type 229E Coronavirus Type NL63 Human Metapneumovir PCR M. pneumoniae (PCR) Parainfluenza PCR Parainfluenza 2 (PCR) Parainfluenza 3 (PCR) Parainfluenza 4 (PCR) RSV (RT-PCR) Entero/Rhino (PCR) SARS-CoV-2 (PCR) Bordetella pertussis (PCR) B parapertussis DNA PCR Influenza Type A (PCR) Influenza Type B (PCR) 12/31/23 12/31/23 12/30/23 08:14 06:40 16:45 WBC RBC Hgb Hct MCV MCH MCHC RDW Plt Count MPV Neut % (Auto) Lymph % (Auto) [place] % (Auto) Eos % (Auto) Baso % (Auto) Neut # (Auto) Lymph # (Auto) [place] # (Auto) Eos # (Auto) Baso # (Auto) Abs Immat Gran (auto) Imm/Tot Granulo (auto) Sodium Potassium Chloride Carbon Dioxide Anion Gap BUN Creatinine Est GFR ( Amer) Est GFR (Non-Af Amer) BUN/Creatinine Ratio Glucose Calcium Magnesium Total Bilirubin 1.4 H 0.8 Direct Bilirubin 0.4 H 0.2 AST 130 H 20 ALT 72 H 21 Alkaline Phosphatase 110 111 NT-Pro-B Natriuret Pep 3383.0 H* Total Protein 6.2 L 6.5 Albumin 3.3 L 3.6 Globulin 2.9 2.9 Albumin/Globulin Ratio 1.1 1.2 Urine Color Urine Clarity Urine pH Ur Specific [place] Urine Protein Urine Glucose (UA) Urine Ketones Urine Occult Blood Urine Nitrite Urine Bilirubin Urine Urobilinogen Ur Leukocyte Esterase Urine RBC Urine WBC Ur Squamous Epith Cells Urine Crystals Urine Bacteria Urine Casts Urine Mucus Ur Culture Indicated? Adenovirus (PCR) Not detected C. pneumoniae DNA (PCR) Not detected Coronavirus Type OC43 Not detected Coronavirus Type HKU1 Not detected Coronavirus Type 229E Not detected Coronavirus Type NL63 Not detected Human Metapneumovir PCR Not detected M. pneumoniae (PCR) Not detected Parainfluenza PCR Not detected Parainfluenza 2 (PCR) Not detected Parainfluenza 3 (PCR) Not detected Parainfluenza 4 (PCR) Not detected RSV (RT-PCR) Not detected Entero/Rhino (PCR) Not detected SARS-CoV-2 (PCR) Not detected Bordetella pertussis (PCR) Not detected B parapertussis DNA PCR Not detected Influenza Type A (PCR) Not detected Influenza Type B (PCR) Not detected Discharge Plan Discharge Disposition: Home, Self-Care Condition: Good Discharge Medications: New carvedilol 12.5 mg Tablet 12.5 mg PO BID Qty: 60 11RF cefdinir 300 mg capsule 600 mg PO DAILY Qty: 20 0RF magnesium oxide 400 mg (241.3 mg magnesium) Tablet 400 mg PO BID Qty: 60 11RF Continued levothyroxine 112 mcg tablet 112 mcg PO QDAY pramipexole 0.5 mg tablet 0.5 mg PO DAILY aspirin 81 mg tablet,delayed release (DR/EC) 81 mg PO DAILY tacrolimus 0.5 mg capsule 0.5 mg PO Q12H simvastatin 20 mg tablet 20 mg PO DAILY Creon 36,000-114,000- 180,000 unit capsule,delayed release(DR/EC) 3 cap PO TID Rx Instructions: administer with meals and/or snacks omega-3 fatty acids-fish oil [Fish Oil] 360-1,200 mg capsule 1 cap PO DAILY hydroxyzine pamoate 25 mg capsule 25 mg PO .QD PRN (Reason: anxiety) escitalopram oxalate 10 mg tablet 10 mg PO .QD mycophenolate mofetil 250 mg capsule 500 mg PO BID Discontinued losartan 50 mg tablet 50 mg PO DAILY magnesium 250 mg tablet 250 mg PO DAILY carvedilol 25 mg tablet 25 mg PO BID Forms: Portal Instructions
[2024-01-01] MEDS: LIPASE/PROTEASE/AMYLASE CAPSULE 3 CAP PO ×2 (08:53→13:09)
[2024-01-01] MEDS: ASPIRIN 81 MG TABLET.DR PO (08:53)
[2024-01-01] MEDS: CARVEDILOL 12.5 MG TABLET PO (08:54)
[2024-01-01] MEDS: ESCITALOPRAM 10 MG TABLET PO (08:54)
[2024-01-01] MEDS: MAGNESIUM OXIDE 400 MG TABLET PO (08:56)
[2024-01-01] MEDS: FISH OIL 1,000 MG CAPSULE 1000 MG PO (08:56)
[2024-01-01] MEDS: ENSURE HP 237 ML LIQUID PO (08:56)
[2024-01-01] MEDS: TACROLIMUS 0.5 MG 0.5 EACH PO (08:59)
[2024-01-01] MEDS: PRAMIPEXOLE 0.5 MG TABLET 1 EACH PO (08:59)
[2024-01-01] MEDS: MYCOPHENOLATE MOFETIL 500 MG 500 EACH PO (08:59)
--- NOTE | 2024-01-01 09:42 | SWNOTE1 ---
Referral sent to [address]
--- NOTE | 2024-01-01 09:56 | SWNOTE1 ---
[facility] is able to accept. SW let pt know and will send dc orders.
[2024-01-01] MEDS: CEFTRIAXONE 1,000 MG in 0.9 % SODIUM CHLORIDE 50 ML 100 MG IV (10:10)
--- NOTE | 2024-01-01 10:38 | REH.PTDLY ---
Physical Therapy Daily Note PT Daily Note/Assess Start: 01/01/24 10:31 Freq: Status: Active Protocol: Document 01/01/24 10:31 SVEN (Rec: 01/01/24 10:37 SVEN [id number]) Physical Therapy Daily Note/Assessment Time In 09:00 Time Out 09:20 Subjective Pt has no complaints, lying in bed. Reports she had been up most the morning. Is willing to participate in PT. Therapeutic Exercise Minutes (minutes) 6 Therapeutic Exercise Units 0 Therapeutic Exercise Treatment Post gait instructed in seated Jayjay AP and LAQ 10x ea. Then instructed in standing exs with RW for UE support, exs included marching, HR, and mini squats 10x ea. Pt becomes SOB and fatigued and needs to sit back down, recovers after 2 mins. Prefers to go back to bed and take a nap as she has been up for awhile. Therapeutic Activity Minutes (minutes) 10 Therapeutic Activity Units 1 Chair Transfer Ability Standby Assistance Therapeutic Activity Comments Pt transfers from supine to stand very quickly with cues to slow down to avoid any dizziness, pt states she is fine but yet is unsteady with standing and is reaching for the bed. Cues for pt to stand still and get her bearings. Pt seems to be impulsive, responds to what you are cuing her to do, but yet does not fully follow cues. Pt declines using RW, states she does not use one at home and is fine. Gait training with no AD CGA 175 feet with cues needed to keep pt focused as she is looking left to right in rooms and around corners. Pt is unsteady with gait, but unsure if this is due to needing an AD or if this is because pt is looking all around constantly instead of just looking straight ahead at where she is going. Total Therapy Minutes 16 Total Physical Therapy Units 1 Daily Note Summary Several cues needed during rx to redirect pt's focus. Pt is unsteady with gait and would recommend an AD for return home at this time for safety, pt is hesitant to have one it seems. Fatigued noted post rx.
--- NOTE | 2024-01-02 15:55 | CM.DCFOLLOWU ---
1st attmept. No answer
--- NOTE | 2024-01-03 14:38 | CM.NOTE ---
Second attempt at Discharge Follow up phone call. No answer
== END 2024-01-01 13:34 | disposition home health service (06) | DRG 641 ==
LOC: ER 18:00 → MS 18:18
PROVIDERS: Admitting Provider Family Medicine; Emergency Provider Emergency Medicine; PCP Family Medicine; Visit Provider Family Medicine
DX: E86.0 Dehydration (principal); N17.9 Acute kidney failure, unspecified; Z94.1 Heart transplant status; N39.0 Urinary tract infection, site not specified; E87.1 Hypo-osmolality and hyponatremia; I95.1 Orthostatic hypotension; I10 Essential (primary) hypertension; R50.9 Fever, unspecified; D72.829 Elevated white blood cell count, unspecified; E83.42 Hypomagnesemia; R79.89 Other specified abnormal findings of blood chemistry; R10.9 Unspecified abdominal pain; D50.9 Iron deficiency anemia, unspecified; E03.9 Hypothyroidism, unspecified; D69.6 Thrombocytopenia, unspecified; Z04.3 Encounter for examination and observation following other accident; Z79.899 Other long term (current) drug therapy; Z79.82 Long term (current) use of aspirin; Z79.890 Hormone replacement therapy
CPT/HCPCS: 0202U; 36415; 70450; 71045; 72125; 73070; 80048; 80053; 80076; 81001; 83735; 83880; 84436; 84443; 84481; 84484; 85025; 87086; 87507; 93005; 93306; 94761; 96361; 96365; 96366; 96367; 96375; 97161; 97165; 97530; 97535; 99285; G0378; J0360; J0696; J2405; J3475

== ENCOUNTER 2024-03-31 09:09 | Outpatient (OUT) | payer MEDICARE, MEDICAID, SELFPAY ==
[2024-03-31 09:50] LABS: Basophils Percent Auto 0.4 % (0.2-2.0); Eosinophils Absolute Auto 0.1 10^3/uL (0.0-0.7); Eosinophils Percent Auto 1.7 % (0.9-7.0); Hematocrit 38.8 % (36.0-48.0); Hemoglobin 12.1 g/dL (12.0-16.0); Immature Granulocytes Abs Auto 0.03 10^3/uL (0.00-0.03); Immature Granulocytes Pct Auto 0.4 % (0.0-0.5); Lymphocytes Percent Auto 12.7 % (20.5-60.0); Mean Corpuscular HGB Conc 31.2 g/dL (29.9-35.2); Mean Corpuscular Hemoglobin 28.7 pg (26.7-34.0); Mean Corpuscular Volume 92.2 fL (81.0-99.0); Mean Platelet Volume 9.7 fL (9.5-13.5); Monocytes Absolute Auto 0.8 10^3/uL (0.3-0.8); Monocytes Percent Auto 10.6 % (1.7-12.0); Neutrophils Absolute Auto 5.5 10^3/uL (1.4-6.5); Neutrophils Percent Auto 74.2 % (43.0-75.0); Platelet Count 202 10^3/uL (150-450); Red Blood Count 4.21 10^6/uL (4.20-5.40); White Blood Count 7.5 10^3/uL (4.0-11.0)
[2024-03-31 10:09] LABS: Alanine Aminotransferase 23 U/L (14-59); Albumin Globulin Ratio 1.1; Albumin Level 3.5 g/dL (3.4-5.0); Alkaline Phosphatase 178 U/L (46-116); Anion Gap 15.4; Aspartate Amino Transferase 21 U/L (15-37); BUN Creatinine Ratio 23.4; Bilirubin Total 0.7 mg/dL (0.2-1.0); Calcium 9.1 mg/dL (8.5-10.1); Carbon Dioxide 24.7 mmol/L (21.0-32.0); Chloride 100 mmol/L (98-107); Chol HDL Ratio 2.7; Cholesterol 125 mg/dL (<=200); Estimated GFR (African America 31 (>=60); Estimated GFR (Non-African Ame 26 (>=60); Globulin 3.2 g/dL; Glucose 151 mg/dL (74-106); HDL Cholesterol 47 mg/dL (40-60); LDL Cholesterol Calculated 59.8 mg/dL; Potassium 4.1 mmol/L (3.5-5.1); Sodium 136 mmol/L (136-145); Total Protein 6.7 g/dL (6.4-8.2); Triglycerides 91 mg/dL (<=150); VLDL CHOLESTEROL 18.2 mg/dL
[2024-04-03 18:07] LABS: Tacrolimus (FK506), Blood 12.5 ng/mL (2.0-20.0)
== END 2024-03-31 09:10 | disposition home or self-care (01) ==
LOC: LAB 09:10
PROVIDERS: PCP Family Medicine; Visit Provider Internal Medicine Interventional Cardiology
DX: I12.9 Hypertensive chronic kidney disease with stage 1 through stage 4 chronic kidney disease, or unspecified chronic kidney disease (principal); N18.32 Chronic kidney disease, stage 3b; Z94.1 Heart transplant status
CPT/HCPCS: 36415; 80053; 80061; 80197; 85025

== ENCOUNTER 2024-06-17 21:20 | Observation (INO) | payer MEDICARE, MEDICAID, SELFPAY ==
[2024-06-17] VITALS (9 sets, daily range): BP systolic 153–180; BP diastolic 87–101; PULSE 74–83; TEMP 37; O2SAT 98–99; BMI 21.9
--- OUTSIDE RECORDS SUMMARY | 2024-06-17 21:26 | XMS_ITS | CCD ---
Author Organization [facility] ion Partnership [facility] Care Team Providers Care Mechanical Engineering Director Name Role Phone Tao Rooney MD Primary Care Provider [phone] SCOT ROGERS Primary Care Physician Tao Rooney MD Primary Care Provider [phone] NICOLETTE RICE Attending UnavailARELIS Rivera Referring Unavailable TAO ROONEY Primary Care Unavailable Tao Rooney MD Primary Care Provider [phone] TAO HEBERT Primary Care Unavailable MISC, DR LOONEY Consulting Unavailable MISC, DR LOONEY Attending Unavailable MISC, DR LOONEY Admitting Unavailable TORIBIO ., DR BURGER Primary Care Unavailable TORIBIO ., DR BURGER Admitting Unavailable TORIBIO ., DR BURGER Consulting Unavailable TORIBIO ., DR BURGER Attending Unavailable TORIBIO ., DR BURGER Primary Care Unavailable MOUKAHERMILO, DR LANCASTER Admitting Unavailable FABRIZIO, DR LANCASTER Attending Unavailable SCOT ROGERS Consulting Unavailable TORIBIO ., DR BURGER Primary Care Unavailable SCOT ROGERS Admitting Unavailable SCOT ROGERS Attending Unavailable TORIBIO ., DR BURGER Primary Care Unavailable MISC, DR LOONEY Consulting Unavailable MISC, DR LOONEY Attending Unavailable MISC, DR LOONEY Admitting Unavailable NANCY BARFIELD Attending Unavailable GOPAL CUI Consulting Unavailluz maria e TORIBIO Sanchez, DR BURGER Primary Care Unavailable AMY Sanchez, NANCY Admitting Unavailable JAZLYN DUBOSE Consulting Unavailable AMY Sanchez, NANCY Consulting Unavailable CAMERON NELSON Consulting Unavaila karen Sanchez, DR BURGER Primary Care Unavailable MOUKAHERMILO, DR LANCASTER Admitting Unavailable MOUKARBEL, DR LANCASTER Attending Unavailable SUE, SCOT Attending Unavailable HOY ., DR BURGER Primary Care Unavailable ZIEBER, DR HAI Chambers Consulting Unavailable SUE, SCOT Admitting Unavailable SUE, SCOT Consulting Unavailable HOY ., DR BURGER Primary Care Unavailable HOY ., DR BURGER Admitting Unavailable HOY ., DR BURGER Consulting Unavailable HOY ., DR BURGER Attending Unavailable WEST, DR JAZLYN Marcelino Consulting Unavailable SCOT ROGERS Consulting Unavailable SUE, SCOT Admitting Unavailable HOY ., DR BURGER Primary Care Unavailable SCOT ROGERS Attending Unavailable MOUKARBEL, DR LANCASTER Consulting Unavailable HOY ., DR BURGER Primary Care Unavailable MOUKARBEL, DR LNACASTER Admitting Unavailable MOUKARBEL, DR LANCASTER Attending Unavailable HOY ., DR BURGER Primary Care Unavailable MISC, DR LOONEY Admitting Unavailable MISC, DR LOONEY Consulting Unavailable MISC, DR LOONEY Attending Unavailable HOY ., DR BURGER Primary Care Unavailable MISC, DR LOONEY Consulting Unavailable MISC, DR LOONEY Attending Unavailable MISC, DR LOONEY Admitting Unavailable SCOT ROGERS Consulting Unavailable HOY ., DR BURGER [...] Consulting Unavailable AMY ., NANCY Consulting Unavailable SCOT ROGERS Attending Unavailable HOY ., DR BURGER Primary Care Unavailable SCOT ROGERS Consulting Unavailable SUE, SCOT Admitting Unavailable SALAM, Morgan Admitting Unavailable SALAM, Morgan Attending Unavailable SALAM, Morgan Admitting Unavailable SALAM, Morgan Attending Unavailable Richard Ca Attending Unavailable SALAM, Eddie Attending Unavailable SUE, SCOT S Referring Unavailable MOUKARBEL, ANISHA Attending Unavailable ANISHA DINH Attending Unavailable ANISHA DINH Attending Unavailable Allergies Allergy Classification Reported Allergen(s) Allergy Type Date of Onset Reaction(s) Facility (10 sources) Acetaminophen / oxyCODONE; Translations: [OXYCODONE-ACETAM INOPHEN] Drug Allergy 05-18-20 14 GI Upset [facility] Work Phone: (11 sources) Promethazine; Translations: [PROMETHAZINE HCL] Drug Allergy 10-11-20 05 Other: See Comments [facility] (3 sources) Levamisole; Translations: [Phenergan] Drug Allergy 04-07-20 13 [facility] Rep[facility] (1 source) Morphine Drug Allergy [facility] (1 source) No Known Medication Allergies; Translations: [No Known Medication Allergies] Propensity to adverse reactions (disorder) [facility] Repository (2 sources) Promethazine; Translations: [promethazine] Drug Allergy 08-12-20 22 Loss of consciousness (finding) [facility] Medications Current Medications Medication Drug Class(es) [...] Start: 04-25-2015 take 1 tablet by bettina once daily at bedtime pramipexole (MIRAPEX) 0.25 mg tablet Take 1 tablet by mouth daily at bedtime. 0 04/25/2015 Active Comment on above: Take 1 tablet by bettina daily at bedtime. predniSONE (2 sources) Start: 07-10-2022 predniSONE Oral, Daily, Refills(s) 0 Start Date: 07/10/22 Status: Ordered Simvastatin (11 sources) HMG-CoA Reductase Inhibitor Start: 07-10-2022 simvastatin Oral, Refills(s) 0 Start Date: 07/10/22 Status: Ordered Start: 05-29-2017 take 1 tablet by bettina once daily at bedtime simvastatin (ZOCOR) 20 mg tablet Take 1 tablet by mouth daily at bedtime. 90 tablet 3 05/29/2017 Active Comment on above: Take 1 tablet by bettina daily at bedtime. 125 ml sodium chloride 9 mg/ml prefilled syringe (9 sources) Start: 02-09-2022 End: 05-11-2023 sodium chloride 0.9 % (flush) 10 mL (BD POSIFLUSH) Tacrolimus (15 sources) Calcineurin Inhibitor Immunosuppressant Start: 07-10-2022 tacrolimus Refills(s) 0 Start Date: 07/10/22 Status: Ordered Start: 08-04-2022 take 1 capsule by mo uth once [...] 04-08-2023 Episodic Other aftercare (1 source) Other terminal operator (current) drug therapy; Translations: [OTH SHELTER CURRENT DRUG THERAPY] Onset: 02-18-2023 Episodic Other [...] Onset: 08-04-2022 Episodic Other aftercare (1 source) [facility] (current) use of aspirin; Translations: [CERTIFIED COURT INTERPRETER CURRENT USE OF ASPIRIN] Onset: 08-08-2022 Episodic [...] sources) Localized edema; Translations: [LOCALIZED EDEMA] Onset: 01-09-2023 Episodic Residual codes; unclassified (1 source) Pain, [...] Test Name Value Interpretation Reference Range Facility 36on 04-06-2024 36 I reviewed the blood testing from 03/31/2024. Her renal function is stable. Her CBC and lipids are good. Her Tacrolimus level was 12.5 ng/ml. Assuming the blood was draw before she took the morning dose of tacrolimus, then the tacrolimus level is a bit higher than her target (5-10 ng/ml). I want her to reduce tacrolimus to 1 mg in am and 0.5 mg in pm. She should have standing order for monthly labs as ordered at last visit. Normal [facility] Telephoneon 04-06-2024 Telephone [id number] Sylvia Herrera 1945 F Date Provider Department [place] 04/06/2024 ANISHA JACOBS [facility] Family History Family history unknown: Yes [facility] Orders Onlyon 03-18-2024 Orders Only [id number] Sylvia Herrera Erin 1945 Provider Department Center 03/18/2024 MITZY BRYANT GUS JORDAN [facility] Family History Family history unknown: Yes [facility] Office Visiton 02-03-2024 Follow-up visit [id number] Sylvia Herrera Erin 1945 Date Provider Department Center 02/03/2024 ANISHA JACOBS JULIAN [facility] Family History Family history unknown: Yes Level of Service:70210 [place] OFFICE/OUTPATIENT ESTABLISHED MOD MDM 30 MIN [facility] Office Visiton 11-12-2023 Follow-up visit [id number] Sylvia Herrera Erin 1945 Provider Department Center 11/12/2023 ANISHA JACOBS JULIAN [facility] Family History Family history unknown: Yes Level of Service:15999 [place] OFFICE/OUTPATIENT ESTABLISHED MOD MDM 30-39 MIN [facility] 36on 10-26-2023 36 Her tacrolimus level from 10/16/2023 was 1.4. still very low. I believe she is currently taking tacrolimus (Prograf) 0.5 mg bid. I want her to increase to 1 mg bid and obtain another trough level in 2-3 weeks. [facility] Telephoneon 10-26-2023 Telephone [id number] Sylvia Herrera Erin 1945 Provider Department Center 10/26/2023 ANISHA JACOBS JULIAN [facility] Family History Family history unknown: Yes [facility] Orders Onlyon 09-30-2023 Orders Only [id number] Sylvia Herrera Erin 1945 Provider Department Center 09/30/2023 SHELBI DENNY JULIAN [facility] Family History Family history unknown: Yes [facility] 36on 08-15-2023 36 Her Tacrolimus troug h level (taken on 08/06/2023, reported 08/14/2023) was low at 1.4. She is currently taking tacrolimus 0.5 mg once a day. Please have her increase it to 0.5 mg twice a day and have a repeat Tacrolimus trough level in 2 weeks. Her target level is around 5-10 ng/ml. Normal [facility] Telephoneon 08-15-2023 Telephone [id number] Sylvia Herrera 1945 F Date Provider Department Center 08/15/2023 ANISHA JACOBS Family History Family history unknown: Yes Normal [facility] Office Visiton 08-07-2023 Follow-up visit [id number] Sylvia Herrera 1945 F Date Provider Department Center 08/07/2023 ANISHA JACOBS Family History Family history unknown: Yes Level of Service:06867 [place] OFFICE/OUTPATIENT ESTABLISHED MOD MDM 30-39 MIN Reason for Visit and Comments: Follow-up [530542] - 6 mo f/u no stress test or tacrolimus result as of 08/06 - does she plan on having stress test? Normal [facility] BMPon 04-08-2023 Creatinine [Mass/Vol] 1.3 mg/dL Normal 0.5-1.3 [facility] Comment on above: Performed By: #### 1 [id number], [id number], [id number] ####[facility] [address] [place] [address] Urea nitrogen [Mass/Vol] 36 mg/dL High 5-21 [facility] Comment on above: Performed By: #### 1 [id number], [id number], [id number] ####[facility] [address] [place] [address] Urea nitrogen/Creatinine [Mass ratio] 28 No Units High 10-20 [facility] Comment on above: Performed By: #### 1 [id number], [id number], [id number] ####[facility] [address] [place] [address] Anion gap [Moles/Vol] 11 mmol/L Normal 6-16 [facility] Comment on above: Performed By: #### 1 [id number], [id number], [id number] ####[facility] [address] [place] [address] Calcium [Mass/Vol] 8.6 mg/dL Low 8.9-11.1 [facility] Comment on above: Performed By: #### 1 [id number], [id number], [id number] ####[facility] [address] [address] Chloride [Moles/Vol] 99 mmol/L Low 101-111 [facility] Comment on above: Performed By: #### 1 [id number], [id number], [id number] ####[facility] [address] [place] [address] CO2 [Moles/Vol] 25 mmol/L Normal 21-31 [facility] Comment on above: Performed By: #### 1 [id number], 5187716, [id number] ####[facility] [address] [place] [address] Glucose [Mass/Vol] 124 mg/dL Normal 55-199 [facility] Comment on above: Result Comment: If t his glucose result represents a fasting glucose, interpretation should refer to the following reference range: 55-99 mg/dL Performed By: #### 1 [id number], [id number], [id number] ####[facility] [address] [place] [address] Potassium [Moles/Vol] 4.1 mmol/L Normal 3.5-5.3 [facility] Comment on above: Performed By: #### 1 [id number], 5436855, 23073261 ####[facility] [address] [address] Sodium [Moles/Vol] 131 mmol/L Low 135-145 [facility] Comment on above: Performed By: #### 1 [id number], 4557647, [id number] ####[facility] [address] [place] [address] CHEMISTRYOrdered By: SYSTEM SYSTEM on 04-08-2023 Anion gap [Moles/Vol] 11 mmol/L Normal 6 - 16 mEq/L F [facility] Remisol Calcium [Mass/Vol] 8.6 mg/dL Low 8.9 - 11. 1 mg/dL [facility] Chloride [Moles/Vol] 99 mmol/L Low 101 - 1 11 mmol/L [facility] CO2 [Moles/Vol] 25 mmol/L Normal 21 - 31 mmol/L [facility] Creatinine [Mass/Vol] 1.3 mg/dL Normal 0.5 - 1.3 mg/dL [facility] GFR/1.73 sq M.predicted among non-blacks MDRD (S/P/Bld) [Vol rate/Area] 42 mL/min/1.73 m2 Low >=59mL/min/1 .73 m2 [facility] Chem S Glucose [Mass/Vol] 124 mg/dL Normal 55 - 199 mg/dL [facility] Potassium [Moles/Vol] 4.1 mmol/L Normal 3.5 - 5.3 mmol/L [facility] Remisol Sodium [Moles/Vol] 131 mmol/L Low 135 - 145 mmol/L [facility] Troponin I.cardiac [Mass/Vol] 11.10 pg/mL Normal 10.10 - 27.10 pg/mL [facility] Urea nitrogen [Mass/Vol] 36 mg/dL High 5 - 21 mg/dL [facility] Urea nitrogen/Creatinine [Mass ratio] 28 mg/mg High 10 - 20 [facility] Troponin I.cardiac [Mass/Vol] 9.70 pg/mL Low 10.10 - 27.10 pg/mL [facility] Remisol Consent for Treatmenton Consent for Treatment [id number] #1.00CD:127 Normal [facility] Discharge Instructionson Discharge Instructions [id number] .[id number]:127 Normal [facility] ED Clinical Summaryon 2022 ED Clinical Summary [place] [id number] ED Clinical Summary Person Information Name: SYLVIA HERRERA [facility] Age: 77 Years : 1945 Sex: Female Language: Cook Islander PCP: SCOT ROGERS CNP Marital Status: Single Visit Id: [...] 04/08/2023 08:56:01 04/08/2023 08:56:01 04/08/2023 08:56:01 AD[address]ESS: [address] [address] [facility] [phone] PHYS DOC NOTES: MEDICAL INFORMATION: Prescriptions Given: [...] Pain, Adult Follow up: With: Address: When: SCOT ROGERS [address] [facility], [place] [address] [phone] Business (1) In 3 days DIAGNOSIS: Chest pain; Hyponatremia Normal [facility] ED Note-Physicianon 04-08-20 ED Note-Physician Basic Information [...] and Complexity of Problems Differential Diagnosis: [] [facility] Data External documents reviewed: N/A My EKG [...] 6 Hr. (more content not included)... Normal [facility] Comment on above: Result Comment: Elec tronically [...] gland problems. ? Metabolic conditions, such as Kulwinder's disease or syndrome of inappropriate antidiuresis (SIAD). [...] Follow these instructions at home: ? Take uxfn-lfh-bweydxf and prescription medicines only as told by [...] Reviewed: 05/29/2022 Elsevier Patient Education ? 2022 [employer] Pulmonary Medicine Nonspecific Chest Pain, Adult Chest [...] health care (more content not included)... Normal [facility] ED Patient Summaryon 023 ED Patient Summary [place] [id number] Patient Discharge Instructions Person Information Name: SYLVIA HERRERA Age: 77 Years Arrival Date: 04/07/2023 21:18:46 Discharge Diagnosis: Chest pain; Hyponatremia Primary Care Physician: SCOT ROGERS CNP Provider Information Primary Provider: Richard Ca DO Advanced Large Animal Husbandry Technician:None The exam and treatment you received in the Emergency Department were for an urgent problem and are not intended as complete care. It is important that you follow up with a doctor, nurse practitioner, or physician?s assistant infant teacher for ongoing care. If your symptoms become worse or you do not improve as expected and you are unable to reach your usual health care provider, you should return to the Emergency Department. We are available 24 hours a day. SYLVIA HERRERA has been given the following list of patient education materials, prescriptions and follow-up instructions: Follow-up Instructions: With: Address: When: SCOT ROGERS [address] [place] [phone] Business (1) In 3 days In the event that this physician does not participate in your insurance network, please consult with your insurance company to find a nearby participating provider. Patient Education Materials: Hyponatremia; Nonspecific Chest Pain, Adult A MESSAGE TO ALL PATIENTS REGARDING OPIOIDS PRESCRIPTION OPIOIDS: WHAT YOU NEED TO KNOW Prescription opioids can be used to help relieve irpktkow-sp-ejhmje pain and are often prescribed following a [...] be struggling with addiction, tell your health landcare facilitator and ask for guidance or call [facility]?S National Helpline at 3-524-367-MOMF. v Source: [place] Departmen (more content not included)... Normal [facility] EMS Documentationon 04-08-20 EMS Documentation Please click on link to see report [id number] CiX5+prnDQolQUJDcGRmI GLhRoR9OBh9CAEpe3UjOD s5ZVyqIUJ3DkJhILcvGLJ b GOO7GRRwLLopTr5FCQQ4A vU8Fo5OhC4mFIUkouUjWH JOD25gSUyyPkO0Aw0VWLS 4FUw1Pp3+ICAg ICAgICAgICAgICAgICAgI CAgICAgICAgICAgICAgIC AgICAgICAgICAgICAgICA gICAgICAgICAg ICAgICAgICAgICAgICAgI VWsSDWNDpNeUA9mvj4MOE l4ffOrBTp5JEY9JClbFRP wMDAwMDMyIDAw VYXyRA9OOnAxIQIsHEC2J YqcXINlQINhsc5ICURvFD ObRIK1IIHcEKGaIZEcGBs wMDAwMDAxODM3 XHTcRUWePJ9PFvDkOPOkF QP7GzsiWXItPZXwuj0XVD AwMDAwMjIyOCAwMDAwMCB uDQowMDAwMDAy DvblARGmNXFoDK4LAeGnN DAwMDIzNTYgMDAwMDAgbg 4NBIPgOPHzOoH0XkMeWWV wMCBuDQowMDAw SRIgIFHoSUJyUYJfBD2DU kDxEAXgKBE1RJubLIQgEQ Tulk7CUYXtYQEoRxz6FKF wMDAwMCBuDQow EIPhEQXpXiI5ZUCmXRHqG H8VYrDsCLOvZNN6YRLwSG CtYMVrqd1PQOXaEEZpUCD 5NSAwMDAwMCBu THyxIXPeCXF0AsPjIPIwI QUyTB9OJwLzJXXfXZX8In keUNAkSLDaym8RPFEzOLN rQMo1XOOkUPBe PEVwGYhePMPxSDI1MrS5C WVzWLMiEJ1SUxHvGSDvTV M9BpnvDYUrEJLock0PKFW wMDAwNTgwNSAw HHRkNRUfGYprLUKsZVG1D MA1VFMeCJXfEK1ROcLqAO SsWVH0SiilPOKhTVKmnj3 KMDAwMDAwNjc1 MyAwMDAwMCBuDQowMDAwM VU8PZS4MOHzJLUuWB8KOe AwMDAwMDczOTYgMDAwMDA oce7CRIDtCTHn OTkyMiAwMDAwMCBuDQowM MKxFHM9OWU1EPLzRHFrFE 7UFpZrNEzwNTVZWom7Ix0 JRCBbPENEMUFD F1RmPMWZVrrMNZX2IDZ9Q Mt0BKRfZDgrPcU3Rqw4Su YQQRX7Guh0DWoSRKQ1KQh 5AYTGJ9C1ESlV NTZDRTA+GRzvFNQoftH7O uW5DsuxBx4aqMW6BXMfFo sdI6y1WMDtIshkS865ctO lIChXZUpYRnhO MpMxAyQ0pCAEALGGG0I9W 98tQ94yIA5JXVpeF9w3Rk nWHXB3AMxUyEfKCkGoG45 dQHzrDHAqF8Ap PqpgtCcgVUB0K2UkmTA8H 5mjn25gQFCHQIrLp9dxOY W9Z90BIgrWNddWoyUPY3v 6fKWVyJE9Tndb L4tjSiPiWWJPRNCoOwPkF knDH9JWZ1dCVj6sTe7+IC AgICAgICAgICAgICAgICA gICAgICAgICAg ICAgICAgICAgICAgICAgI CAgICAgICAgICAgICAgIC AgICAgICAgICAgICAgICA gICAgICAgICAg ICAgICAgICAgICAgICAgI CAgICAgICAgICAgICAgIC AgICAgICAgICAgICAgICA gICAgICAgICAg ICAgICAgICAgICAgICAgI CAgICAgICAgICAgICAgIC AgICAgICAgICAgICAgICA gICAgICAgICAg ICAgICAgICAgICAgICAgI CAgICAgICAgICAgICAgIC AgICAgICAgICAgICAgICA gICAgICAgICAg ICAgICAgICAgICAgICAgI CAgICAgICAgICAgICAgIC AgICAgICAgICAgICAgICA gICAgICAgICAg ICAgICAgICAgICAgICAgI CAgICAgICAgICAgICAgIC AgICAgICAgICAgICAgICA gICAgICAgICAg ICAgICAgICAgICAgICAgI CAgICAgICAgICAgICAgIC AgICAgICAgICAgICAgICA gICAgICAgICAg DQAGFdK6TAC6fBBrSp0II V7GKUEEP4URNy0VGTZuSS 6iec0TNQyCW81qeNHyNWX yXOMySEUGUr3W eMBeRVC8nW8qEEg1UIAjB wlcAwx8YO4KA993pJkxzm PnJSXwCZGPAo0RMRnqFP6 kRREzARUdJy2f ZQovUGFnZXMgMiAwIFIKL 9T1qRCfG5EzfBUxe6lYKg 5NBuDzEU4sfn1ZNAt3OFS ja0YgKLy4JQpw LzffeBYwQV1QtLS0GLEhF 61zLGqkPBSgU2EcVYUfII abBwT4Tfj+Dk6Hi0KxSYW zPJp8eJTgHFKb YGDLYFBgYLjCAyLhQAEKU vfpFtR3WzZpCKDo3YVgCW Eb12SDHuUzToVwAPscOuC cxJKU3AdxWiSQ CQar1GwBNwNXEgBHqgH1G MjuVLWONlrLEUf5WkVsXu iH8QiGfeEt8U1ULADAHlh QAsOtVVT8bjHj kT8FRJ6mq9SgVEdKHmejD RKkFxcHZru8Go3Nh613OI 50cyBbMjQgMCBSXQovTWV wsEGSq4laPhLo KZD8EWFwYlgdWXbqNFVjN H68PAPuWETVGd7OBURvaW JiJZAgGWePH2lCNjqaV9N yAZkXW7rgNfE0 IDggMCBSCj4+Cj4+Ci9Ue PFoSN9VGGrcMy9+DQplbm NxLdrGSi1TYAGxKO0hnp4 RTUnVT0ZXr9is GgNhCUI1ZLKrRofaDUklH jlkvGXeOJ0XkHL9MBMtV3 0hPQgqVKPhW7SvZOy8Ql6 SZXNvdXJjZXMg NWgQI5sSPomxT9XrCAgOC 1olJsO9OLO0VATxWvi+Pg o+VafkT7OwvGvrEXPbJz1 ybQovVHlwZSAv PX6asmQijAw+Ie8Ro3VkD PDbAXq7yUDU8TBm4YWpMC YqICE4SZMarqAKQOvf2Kb XyOPlMtCztDAz C3xqJVTl35hSMBAmOsyZp 8hlCwJg7RnCRL+GI7HZrv BfBkYibn5QTIccbbCulQZ aLJ7LEaUoWL2y ld7JNQx5IRUex7NaTKk5T ZlwTx3yB02rhc9rjHqxS8 EgMQo+Mv0ONK8dx0LbTXh WGyUoUNVxu0Hj YXz0ZVkbUa6iR12axp2fm NhmF0KsMRqmRVKhQKaxUF ogMAovTFcgMQovTUwgNAo oK7OvxZH6WKeq I5PxLJc+Iu9QVM3zy7QrQ WdUXlVhGOQly4WbGYc7XV qhIl7lP52ndw3ueQkyV5D fKJ3bJyQbOrwk TEMgMAovTEogMAovTFcgM MtoXNuuRDpoC7NodNY8SG puZ8LyXY2pBeUmEql+Pg0 MMQ1xo8SqBHgG BiLgDLKuh2UkIIt5TCmvG q7zK84pze9vaOrxH5LkDE 4wODIzNQo+Zf2DZA1kv1S qDQoNCjEzIDAg m7XyVHd7NAkhJh4tM26sf d2gqGzfR7KzOF3pRXZ8ST ovTEMgMAovTEogMAovTFc gMQovTUwgNAov W6GanDH6HWdeP6EyFU6iC TA5OAo+Ij5YLT3uv0ZxCL nIUvW9XYPzz3KcVGt5HIc cNCJ4eay8DQmu Wcl0IPQrLGPtQI46PDEkZ Mh5Ty7MV7LaaYNfmm4SeO YeMBVOY3OvYTWymbdcHFh HR2BcyW8bU4Xu X1EgV0YhnvlzXMKYBmpjM 96teeOiVKqkMKG3BBJyGM C8EW0CK5B4iOKcLFCimHZ 9SIb1erKdNSvc BiCwG2Wrq86nADxWY9ZrD AwxAgr9HqTmUln2GqQiYd w3C19HI3CuVJapBtp1HlE sMol7ShPyXkx4 B09YF6NysYZicmStYZYjC JsqVoJwX7Bvd66BqLRpJI UFK11oTQm+CipjR6xgHZr hR3M8iJKiJzy+ KltuFWozTHAdELI7cLFur go+Ar2GLT5kv2YqFXwCOi S8YTPtb9RrRLh4RNxvZPF 4brd9MOllMjv5 QCOnTUIrEQ00GDSbHQz6U p3XZ9MiyANefr2AoBRpSF VRW0NyLDRcvkyaXTxNF5H kbE5rA0YyH8Lf T4MqjhjkUIUFDvstV48ef gFwHWw4XMX7ChJ2MUU0Ss 25Sj1NG1I8vAJnHUNajKU 6STa1slBjCLdj QnUvY5Edv38lYYuSZ8Hxz D4kpbQbKW12ASiaYX0tYC vwIOrkDUQkAz8XvzBrBQK gWzAgMSAwIDFd Xz2HaU1fvWpjtoL5sRLzI llfDmOxZ7Fdy57kVIm3PE zhIfQzCtPrTXT8CJJjBJZ 6CHVsCHH7ITau RlRrMwSzGLP0BRQuTJG2L SPjQFW3JMdaXZ3fBLyvWH kuDNOlRr4QdV4dyQptihP 5cGUgMgovTiAx Cj4+Kad3Ld0TXZMrZG56U ymnMV40WpeyGK10YneoNn 7YIEAsVB49DgCkWP53QcV iZJ98NePjLp1H o01osN3oYrXgSR7UX6H9p qL1hE9oEFfvFGSyEd8HYL VPZo1cJl5+Id7JwDEojT2 nVHlwZSAyCj4+ Nb0RkEUmQN5TPGH0YYXcU j4+JMbcrfOsBskHQt4DKJ PrTASjAewFJnr3Rc1NECT fAh5vbRLkOGwW JD1GQ1VmI28fTIaVY0Grn 5FryrOucuYLu957nfFmLZ gmDSKONMgzGP8pf4Vxdsa xN2ryTH62lUF7 LQuSD6K6ZbW4cFLgT5Y5v WYlAv3Ab7RigFKnOIBuXE btPLKDAv3MbFMyLC9Pr00 0Cj4+DQplbmRv BccQRy7VUCljVADiUktWR hz1Sa7CGDHwAo4jyUEdUJ sUGM8QN9CaC76uFCnHM6N WMON0x9StwCdp Mt8nYVkYA32uTLSotW8kH WaFGRXsjFe2aHpQT3OmU8 jgtBO2BEzYEP9o (more content not included)... Normal [facility] EMS Documentation Please click on link to see report Normal [facility] Comment on above: Result Comment: Miss laura Attachment - attachment exceeds size limitation [id number] Can be viewed in source system EMS Documentation [id number]# 1.00CD:127 [facility] Monitor Recordon 04-08-2023 Monitor Record [id number]# 1.00CD:127 [facility] Progress Note-Nurseon 2022 Progress Note-Nurse Pt. requesting food, Dr. Ca aware. Pt. given food per verbal order from Dr. Ca. [facility] Troponin 0 Hr.on 04-08-2023 Troponin I.cardiac [Mass/Vol] 9.20 pg/mL Low 10.10-27.10 [facility] Comment on above: Result Comment: The 95% CI (Confidence Interval) PPV (Positive Predictive Value) for myocardial infarction in females is 38 pg/mL, in males 51 pg/mL. The results should be used in conjunction with clinical conditions of myocardial infarction. (Access High Sensitivity Troponin I Instructions For Use, Kerm[employer] Thaddeus, July 2018) Performed By: #### 2 [id number] ####[facility] [id number] [place] [address] Troponin 3 Hr.on 04-08-2023 Troponin I.cardiac [Mass/Vol] 9.70 pg/mL Low 10.10-27.10 [facility] Comment on above: Result Comment: The 95% CI (Confidence Interval) PPV (Positive Predictive Value) for myocardial infarction in females is 38 pg/mL, in males 51 pg/mL. The results should be used in conjunction with clinical conditions of myocardial infarction. (Access High Sensitivity Troponin I Instructions For Use, [employer], July 2018) Performed By: #### 1 [id number] ####[facility] [id number] [place] [address] Troponin 6 Hr.on 04-08-2023 Troponin I.cardiac [Mass/Vol] 11.10 pg/mL Normal 10.10-27.10 [facility] Comment on above: Result Comment: The 95% CI (Confidence Interval) PPV (Positive Predictive Value) for myocardial infarction in females is 38 pg/mL, in males 51 pg/mL. The results should be used in conjunction with clinical conditions of myocardial infarction. ([employer] High Sensitivity Troponin I Instructions For Use, [employer], July 2018) Performed By: #### 1 [id number] ####[facility] [id number] [place] [address] XR Chest Single Viewon 04-08 XR Chest [...] mGy = na DAP = na Normal [facility] eGFRon 04-08-2023 GFR/1.73 sq M.predicted among non-blacks MDRD (S/P/Bld) [Vol rate/Area] 42 mL/min/1.73 m2 Low >=59 [facility] Comment on above: Order Comment: Order added by Discern Expert. Result Comment: Legend Maker brennan kidney disease could be indicated at eGFR's of less than 60 mL/min/1.73m2. Kidney failure is indicated at less than 15 mL/min/1.73m2. Performed By: #### 1 [id number], 0340064, [id number] ####[address] [place] [address] Auto Diffon 04-07-2023 Basophils/100 WBC (Bld) 0.4 % Normal 0.0-2.0 [facility] Comment on above: Order Comment: Order Added by Discern Expert. Performed By: #### 2 454223, 13296258, 5016218, 0510540, 97759611, 87272430 ####[address] [address] Basophils/Leukocytes Auto (Bld) [Pure # fraction] 0.0 E9/L Normal 0.0-0.2 [facility] Comment on above: Order Comment: Order Added by Discern Expert. Performed By: #### 2 658361, 10684103, 9950494, 5562893, 76965913, 78041420 ####[address] [place] [address] Eosinophils/100 WBC (Bld) 3.0 % Normal 0.0-8.0 [facility] Comment on above: Order Comment: Order Added by Discern Expert. Performed By: #### 2 456110, 71052044, 1555658, 1344672, 73870609, 87586599 ####[address] [address] Eosinophils/Leukocytes Auto (Bld) [Pure # fraction] 0.2 E9/L Normal 0.0-0.5 [facility] Comment on above: Order Comment: Order Added by Discern Expert. Performed By: #### 2 276245, 08318943, 3224659, 8678933, 92957399, 63458511 ####[address] [place] [address] Lymphocytes/100 WBC (Bld) 15.4 % Normal 14.0-50.0 [facility] Comment on above: Order Comment: Order Added by Discern Expert. Performed By: #### 2 671319, 80376196, 4438178, 3692098, 45062654, 57895586 ####[address] [address] Lymphocytes/Leukocytes Auto (Bld) [Pure # fraction] 1.1 E9/L Normal 1.0-4.0 [facility] Comment on above: Order Comment: Order Added by Discern Expert. Performed By: #### 2 555324, 84608452, 7816906, 1338072, 82756215, 53692529 ####[address] [address] Monocytes/100 WBC (Bld) 12.8 % Normal 4.0-14.0 [facility] Comment on above: Order Comment: Order Added by Discern Expert. Performed By: #### 2 137357, 84079349, 0223655, 5402615, 77760688, 70141852 ####[address] [address] Monocytes/Leukocytes Auto (Bld) [Pure # fraction] 0.9 E9/L Normal 0.2-1.0 [facility] Comment on above: Order Comment: Order Added by Discern Expert. Performed By: #### 2 583552, 55996036, 5899382, 9405606, 55251686, 33800564 ####[address] [address] Neutrophils/100 WBC (Bld) 68.4 % Normal 36.0-75.0 [facility] Comment on above: Order Comment: Order Added by Discern Expert. Performed By: #### 2 636697, 18013187, 3183227, 8271543, 35555869, 88283897 ####[address] [address] Neutrophils/Leukocytes Auto (Bld) [Pure # fraction] 5.0 E9/L Normal 2.0-7.5 [facility] Comment on above: Order Comment: Order Added by Discern Expert. Performed By: #### 2 889951, 15571724, 2053384, 3898534, 32884199, 42505400 ####[facility] [address] [place] [address] BMPon 04-07-2023 Creatinine [Mass/Vol] 1.5 mg/dL High 0.5-1.3 [facility] Comment on above: Performed By: #### 2 890475, 18904121, 9434189, 2335214, 28790021, 19856451 ####[facility] [address] [place] [address] Urea nitrogen [Mass/Vol] 40 mg/dL High 5-21 [facility] Comment on above: Performed By: #### 2 911378, 64503670, 8948170, 4337518, 11822128, 21855817 ####[facility] [address] [place] [address] Urea nitrogen/Creatinine [Mass ratio] 27 No Units High 10-20 [facility] Comment on above: Performed By: #### 2 572058, 40245749, 9922920, 5290464, 24242371, 47213430 ####[facility] [address] [place] [address] Anion gap [Moles/Vol] 11 mmol/L Normal 6-16 [facility] Comment on above: Performed By: #### 2 861507, 05716170, 3138045, 9659206, 69676791, 73058458 ####[facility] [address] [place] [address] Calcium [Mass/Vol] 8.6 mg/dL Low 8.9-11.1 [facility] Comment on above: Performed By: #### 2 481803, 52082852, 5517851, 3697977, 67304365, 10011253 ####[facility] [address] [place] [address] Chloride [Moles/Vol] 96 mmol/L Low 101-111 [facility] Comment on above: Performed By: #### 2 175757, 39957230, 1277283, 1725951, 90224140, 46806808 ####[facility] [address] [place] [address] CO2 [Moles/Vol] 24 mmol/L Normal 21-31 [facility] Comment on above: Performed By: #### 2 691515, 83761591, 5044515, 3456061, 36401082, 60799290 ####[facility] [address] [place] [address] Glucose [Mass/Vol] 139 mg/dL Normal 55-199 [facility] Comment on above: Result Comment: If t his glucose result represents a fasting glucose, interpretation should refer to the following reference range: 55-99 mg/dL Performed By: #### 2 619996, 26289394, 2740639, 3709545, 43942815, 99349688 ####[facility] [address] [place] [address] Potassium [Moles/Vol] 4.4 mmol/L Normal 3.5-5.3 [facility] Comment on above: Performed By: #### 2 430517, 44464511, 0636646, 2172539, 41819251, 31682121 ####[facility] [address] [place] [address] Sodium [Moles/Vol] 127 mmol/L Low 135-145 [facility] Comment on above: Performed By: #### 2 822887, 01204236, 5859910, 6665255, 99587818, 12358195 ####[facility] [address] [place] [address] CBC w/ Auto Diffon 3 Erythrocyte distribution width (RBC) [Ratio] 13.0 % Normal 10.9-14.2 [facility] Comment on above: Performed By: #### 2 335722, 96279466, 4872792, 3842238, 69674877, 78980518 ####[facility] [address] [place] [address] Hematocrit (Bld) [Volume fraction] 38.4 % Normal 34.0-46.0 [facility] Comment on above: Performed By: #### 2 057165, 05382844, 5422269, 3345254, 98073347, 12852349 ####[address] [address] Hemoglobin (Bld) [Mass/Vol] 12.6 g/dL Normal 12.0-16.0 [facility] Comment on above: Performed By: #### 2 827850, 06658278, 3964652, 7879160, 43366001, 73745177 ####[address] [address] MCH (RBC) [Entitic mass] 27.9 pg Normal 27.0-34.0 [facility] Comment on above: Performed By: #### 2 388910, 91739750, 0538379, 1800739, 44788991, 61610742 ####[address] [address] MCHC (RBC) [Mass/Vol] 32.7 g/dL Normal 31.4-36.0 [facility] Comment on above: Performed By: #### 2 187937, 88767346, 4300201, 3981142, 03085015, 23581641 ####[address] [address] MCV (RBC) [Entitic vol] 85.3 fL Normal 80.0-100.0 [facility] Comment on above: Performed By: #### 2 953584, 86768563, 5661979, 6222916, 69244112, 30202773 ####[facility] [address] [place] [address] Platelet mean volume (Bld) [Entitic vol] 7.3 fL Normal 6.4-10.8 [facility] Comment on above: Performed By: #### 2 844890, 84662712, 1729825, 1167080, 09009791, 98767110 ####[facility] [address] [place] [address] Platelets (Bld) [#/Vol] 167.0 E9/L Normal 150.0-500.0 [facility] Comment on above: Performed By: #### 2 113200, 58906685, 3475450, 2744441, 37065620, 08669378 ####[facility] [address] [place] [address] RBC (Bld) [#/Vol] 4.5 E12/L Normal 4.3-5.9 [facility] Comment on above: Performed By: #### 2 832568, 68299974, 7694497, 6348825, 41094721, 61956068 ####[facility] [address] [place] [address] WBC corrected for nucl RBC Auto (Bld) [#/Vol] 7.3 E9/L Normal 4.0-11.0 [facility] Comment on above: Performed By: #### 2 979151, 10648040, 1374792, 0774285, 12547923, 40715569 ####[facility] [address] [place] [address] CHEMISTRYOrdered By: SYSTEM SYSTEM on 04-07-2023 Anion gap [Moles/Vol] 11 mmol/L Normal 6 - 16 mEq/L [facility] Calcium [Mass/Vol] 8.6 mg/dL Low 8.9 - 11. 1 mg/dL [facility] Chloride [Moles/Vol] 96 mmol/L Low 101 - 1 11 mmol/L [facility] CO2 [Moles/Vol] 24 mmol/L Normal 21 - 31 mmol/L [facility] Creatinine [Mass/Vol] 1.5 mg/dL High 0.5 - 1.3 mg/dL [facility] GFR/1.73 sq M.predicted among non-blacks MDRD (S/P/Bld) [Vol rate/Area] 35 mL/min/1.73 m2 Low >=59mL/min/1 .73 m2 FT [facility] S Glucose [Mass/Vol] 139 mg/dL Normal 55 - 199 mg/dL [facility] Potassium [Moles/Vol] 4.4 mmol/L Normal 3.5 - 5.3 mmol/L [facility] Sodium [Moles/Vol] 127 mmol/L Low 135 - 145 mmol/L [facility] Troponin I.cardiac [Mass/Vol] 9.20 pg/mL Low 10.10 - 27.10 pg/mL [facility] Urea nitrogen [Mass/Vol] 40 mg/dL High 5 - 21 mg/dL [facility] Urea nitrogen/Creatinine [Mass ratio] 27 mg/mg [...] 167.0 E9/L Normal 150.0 - 500.0 E9/L [facility] HemeAutoSS RBC (Bld) [#/Vol] 4.5 E12/L Normal 4.3 - 5.9 E12/L [facility] HemeAutoSS WBC corrected for nucl RBC Auto (Bld) [#/Vol] 7.3 E9/L Normal 4.0 - 11.0 E9/L [facility] HemeAutoSS PT & PTTon 04-07-2023 aPTT Coag (PPP) [Time] 27.1 second(s) Normal 25.1-36.5 [facility] Comment on above: Result Comment: Para meter [...] the same coagulation reagent and instrumentation as [facility]. Currently there are no coagulation studies available worldwide for children to 14 days, and no normal ranges. Heparin therapeutic range (represented by Anti-Factor Xa activity of 0.2 - 0.4 U/mL) corresponds to PTT of 56.6 - 109.0 sec. Performed By: #### 2 195342, 36530992, 7219514, 4721604, 26178576, 94726738 ####[facility] [address] [place] [address] INR Coag (PPP) [Relative time] 1.2 {INR} Invalid Interpretation Code [facility] Comment on above: Result Comment: INR results are specifically intended to assess patients stabilized on long-term Anticoagulation therapy suggested INR?s ?Less Intensive Anticoagulation? 2.0 ? 3.0 Conventional Range 3.0 ? 4.5 Performed By: #### 2 735375, 00659404, 8604102, 7370195, 17156201, 10628377 ####[facility] [address] [place] [address] PT Coag (PPP) [Time] 12.9 second(s) High 9.4-12.5 [facility] Comment on above: Result Comment: 15 d [...] the same coagulation reagent and instrumentation as [facility]. Currently there are no coagulation studies available worldwide for children to 14 days, and no normal ranges. Performed By: #### 2 496136, 39720924, 1664071, 8171832, 22910231, 88130768 ####[facility] [address] [place] [address] Pre-Arrival Noteon 3 Pre-Arrival Note Pre-Arrival Summary Name: , YAZMIN Current Date: 04/07/2023 21:19:11 EDT Gender: Female Date of : Age: 77 Pre-Arrival Type: EMS ETA: 04/07/2023 21:15:00 EDT Primary Care Physician: Presenting Problem: chest pain Pre-Arrival User: Natalia Fischer RN Referring Source: Location: Completion Date/Time: 04/07/2023 21:06:00 [facility] Emergency Department Pre-Hospital Report Form Vital Signs: Pre-Hospital Report: Treatment in Route: Response to Treatment: Misc. Issues: Normal [facility] eGFRon 04-07-2023 GFR/1.73 sq M.predicted among non-blacks MDRD (S/P/Bld) [Vol rate/Area] 35 mL/min/1.73 m2 Low >=59 [facility] Comment on above: Order Comment: Order added by Discern Expert. Result Comment: Legend Maker brennan kidney disease could be indicated at eGFR's of less than 60 mL/min/1.73m2. Kidney failure is indicated at less than 15 mL/min/1.73m2. Performed By: #### 2 174658, 86282978, 6167476, 6595355, 03631568, 45650179 ####[facility] [id number] INFLUENZA A AND B AGon 03-05 INFLUANEGH SEE BELOW Normal [facility] [place] Comment on above: Result Comment: Nega tive for Flu A protein angiten. Infection due to Flu A cannot be ruled out. Flu A angiten in the sample may be below the detection limit of the test. Performed By: #### E RUR #### [facility] [place] [facility] [address] [place] [address] Dr. Hardeep Rivera INFLUBNEGH SEE BELOW Normal [facility] Comment on above: Result Comment: Nega tive for Flu B protein antigen. Infection due to Flu B cannot be ruled out. Flu B antigen in the sample may be below the detection limit of the test. Performed By: #### E RUR #### [facility] [place] [facility] [address] [place] [address] Dr. Hardeep Rivera INFLUENZA A AG Negative Normal NEGATIVE SEE COMMENT [facility] [place] Comment on above: Performed By: #### E RUR #### [facility] [place] [facility] [address] [place] [address] Dr. Hardeep Rivera INFLUENZA B AG Negative Normal NEGATIVE SEE COMMENT [facility] [place] Comment on above: Performed By: #### E RUR #### [facility] [place] [facility] [address] [place] [address] Dr. Hardeep Rivera SYMPTOMATIC COVID-19 ANTIGEN on 03-05-2023 EUA Statement SEE BELOW Normal [facility] Comment on above: Result Comment: This test [...] revoked sooner. Performed By: #### C VDAGS ####[facility] [place] [address] [address]Dr[address] Hardeep Rivera SARS-CoV-2 (COVID-19) RNA ULICES+probe Ql (Unsp spec) Positive Abnormal NEGATIVE [facility] [place] Comment on above: Performed By: #### C VDAGS ####[facility] [place] [address] [address]DrLaura Rivera FK506 (TACROLIMUS) WHOLE BLO ODon 02-28-2023 Tacrolimus (FK506), Blood 5.8 ng/mL Normal 2.0-20.0 [facility] [place] Comment on above: Result Comment: Trou gh (immediately following transplant) 15.0 . Trough (steady state, 2 weeks or more after transplant): 3.0 - 8.0 . Performed by LC-MS/MS technology. Performed By: #### F K506T ####[facility] [place] [address] [address]Dr. Hardeep Rivera CBC AUTO DIFFon 02-14-2023 BASO # 0.0 103/ul Normal 0.0-0.1 [facility] [place] Comment on above: Performed By: #### RANDALL OLSON #### [facility] [place] [facility] [address] [place] [address] Dr. Hardeep Rivera Basophils/100 WBC (Bld) 0.5 % Normal 0.2-2.0 [facility] Comment on above: Performed By: #### RANDALL OLSON #### [facility] [place] [facility] [address] [place] [address] Dr. Hardeep Rivera EO # 0.2 103/ul Normal 0.0-0.7 [facility] [place] Comment on above: Performed By: #### RANDALL OLSON #### [facility] [place] [facility] [address] [place] [address] Dr. Hardeep Rivera Eosinophils/100 WBC (Bld) 3.5 % Normal 0.9-7.0 [facility] Comment on above: Performed By: #### AKSHAT OLSONICRO #### [facility] [place] [facility] [address] [place] [address] Dr. Hardeep Rivera Erythrocyte distribution width (RBC) [Ratio] 12.3 % Normal 11.0-15.0 [facility] Comment on above: Performed By: #### Deedee PINON UMICRO #### [facility] [place] [facility] [address] [place] [address] Dr. Hardeep Rivera Hematocrit (Bld) [Volume fraction] 38.7 % Normal 36.0-48.0 [facility] Comment on above: Performed By: #### Deedee PINON UMICRO #### [facility] [place] [facility] [address] [place] [address] Dr. Hardeep Rivera Hemoglobin (Bld) [Mass/Vol] 12.6 g/dL Normal 12.0-16.0 [facility] Comment on above: Performed By: #### HARI OLSONRO #### [facility] [place] [facility] [address] [place] [address] Dr. Hardeep Rivera IG # 0.03 10e3/ul Normal 0.00-0.03 [facility] Comment on above: Performed By: #### ASKHAT OLSONICRO #### [facility] [place] [facility] [address] [place] [address] Dr. Hardeep Rivera IG % 0.5 % Normal 0.0-0.5 [facility] Comment on above: Performed By: #### HARI OLSONRO #### [facility] [place] [facility] [address] [place] [address] Dr. Hardeep Rivera LYMPH # 0.8 103/ul Critically low 1.2-3.8 [facility] Comment on above: Performed By: #### AKSHAT OLSONICRO #### [facility] [place] [facility] [address] [place] [address] Dr. Hardeep Rivera Lymphocytes/100 WBC (Bld) 13.2 % Critically low 20.5-60.0 [facility] Comment on above: Performed By: #### HARI OLSONRO #### [facility] [place] [facility] [address] [place] [address] Dr. Hardeep Rivera MANUAL DIFF REQ NO Normal [facility] Comment on above: Performed By: #### AKSHAT OLSONICRO #### [facility] [place] [facility] [address] [place] [address] Dr. Hardeep Rivera MCH (RBC) [Entitic mass] 28.3 pg Normal 26.7-34.0 [facility] Comment on above: Performed By: #### Deedee PINON UMICRO #### [facility] [place] [facility] [address] [place] [address] Dr. Hardeep Rivera MCHC (RBC) [Mass/Vol] 32.6 g/dL Normal 29.9-35.2 [facility] Comment on above: Performed By: #### Deedee PINON UMICRO #### [facility] [place] [facility] [address] [place] [address] Dr. Hardeep Rivera MCV (RBC) [Entitic vol] 87.0 fL Normal 81.0-99.0 [facility] Comment on above: Performed By: #### Deedee PINON UMICRO #### [facility] [address] [place] [address] Dr. Hardeep Rivera MONO # 0.8 103/ul Normal 0.3-0.8 [facility] Comment on above: Performed By: #### Deedee PINON UMICRO #### [facility] [place] [facility] [address] [place] [address] Dr. Hardeep Rivera Monocytes/100 WBC (Bld) 12.9 % Critically high 1.7-12.0 [facility] Comment on above: Performed By: #### Deedee PINON UMICRO #### [facility] [place] [facility] [address] [place] [address] Dr. Hardeep Rivera NEUT # 4.4 103/ul Normal 1.4-6.5 [facility] Comment on above: Performed By: #### Deedee PINON UMICRO #### [facility] [place] [facility] [address] [place] [address] Dr. Hardeep Rivera Neutrophils/100 WBC (Bld) 69.4 % Normal 43.0-75.0 [facility] [place] Comment on above: Performed By: #### Deedee PINON, UMICRO #### [facility] [place] [facility] [address], [place] [address] Dr. Hardeep Rivera Platelet mean volume (Bld) [Entitic vol] 9.0 fL Critically low 9.5-13.5 [facility] Comment on above: Performed By: #### Deedee PINON, UMICRO #### [facility] [place] [facility] [address] [address] [address] Hardeep Rivera PLT 205 103/ul Normal 150-450 [facility] [place] Comment on above: Performed By: #### Deedee PINON, UMICRO #### [facility] [place] [facility] [address] [address] [address] Hardeep Rivera RBC 4.45 106/ul Normal 4.20-5.40 [facility] [place] Comment on above: Performed By: #### Deedee PINON, UMICRO #### [facility] [place] [facility] [address] [address] [address] Hardeep Rivera WBC 6.3 103/ul Normal 4.0-11.0 [facility] Comment on above: Performed By: #### Deedee PINON, UMICRO #### [facility] [place] [facility] [address] HEAD WO CONon [...] frontal crews radiata white matter unchanged from 2016 likely relating to dystrophic calcification/mineral ization. Stable mild patchy hypoattenuation involving the supratentorial white matter which in this age group most commonly relates to sequela small vessel disease. No mass lesion or mass effect. No hydrocephalus. IMPRESSION: 1. No acute large vascular territory infarct or acute intracranial hemorrhage. 2. Similar probable dystrophic calcification involving the left frontal crews radiata white matter stable from 2016. This is of undetermined etiology with sequela of prior insult/injury or underlying cavernoma primary considerations. 3. Stable senescent change. Electronically authenticated by: CAMERON NELSON Date: 2023-02-14 15:46 Normal [facility] ER URINE PROFILEon 3 Bilirubin Ql (U) Negative Normal NEGATIVE [facility] Comment on above: Performed By: #### Deedee PINON UMICRO #### [facility] [place] [facility] [address] [place] [address] Dr. Hardeep Rivera Clarity (U) CLEAR Normal CLEAR [facility] Comment on above: Performed By: #### HARI OLSONRO #### [facility] [place] [facility] [address] [place] [address] Dr. Hardeep Rivera Color (U) LT. YELLOW Normal YELLOW [facility] Comment on above: Performed By: #### HARI OLSONRO #### [facility] [place] [facility] [address] [place] [address] Dr. Hardeep FRANCIS A micrscopic examination will be performed if indicated. Normal [facility] [place] Comment on above: Performed By: #### HARI OLSONRO #### [facility] [place] [facility] [address] [place] [address] Dr. Hardeep Rivera Glucose Ql (U) Negative Normal NEGATIVE [facility] Comment on above: Performed By: #### AKSHAT OLSONICRO #### [facility] [place] [facility] [address] [place] [address] Dr. Hardeep Rivera Hemoglobin Ql (U) TRACE-INTACT Abnormal NEGATIVE [facility] Comment on above: Performed By: #### HARI OLSONRO #### [facility] [place] [facility] [address] [place] [address] Dr. Hardeep Rivera Ketones Ql (U) Negative Normal NEGATIVE [facility] Comment on above: Performed By: #### HARI OLSONRO #### [facility] [place] [facility] [address] [place] [address] Dr. Hardeep Rivera LEUKOCYTES Negative Normal NEGATIVE [facility] Comment on above: Performed By: #### E KATHRIN, UMICRO #### [facility] [place] [facility] [address] [address] [address] Hardeep Rivera Nitrite Ql (U) Negative Normal NEGATIVE [facility] Comment on above: Performed By: #### E KATHRIN, UMICRO #### [facility] [place] [facility] [address] [address] [address] Hardeep Rivera pH (U) 7.0 [pH] Normal 5-9 [facility] Comment on above: Performed By: #### E KATHRIN, UMICRO #### [facility] [place] [facility] [address] [address] [address] Hardeep Rivera Protein (U) [Mass/Vol] 30 mg/dL Abnormal NEGAT PEARL/ TRACE [facility] Comment on above: Performed By: #### Deedee PINON UMICRO #### [facility] [facility] [address] [place] [address] Dr. Hardeep Rivera SPEC GRAVITY 1.010 Normal 1.005-<=1.02 5 [facility] Comment on above: Performed By: #### Deedee PINON UMICRO #### [facility] [address] [place] [address] Dr. Hardeep Rivera UR MICRO IND INDICATED Normal [facility] Comment on above: Performed By: #### Deedee PINON UMICRO #### [facility] [address] [place] [address] Dr. Hardeep Rivera Urobilinogen Qn (U) 0.2 {Kevon'U}/dL Normal 0.2 - 1. 0 [facility] Comment on above: Performed By: #### E KATHRIN, UMICRO #### [facility] [address] [place] [address] Dr. Hardeep Rivera PROF 14(COMP METB)on 023 Albumin [Mass/Vol] 3.5 g/dL Normal 3.4-5.0 [facility] Comment on above: Performed By: #### H STROPN, CMP, TSH ####[facility] [address] [place] [address]Dr. Hardeep Rivera Albumin/Globulin [Mass ratio] 1.2 {ratio} Normal [facility] Comment on above: Performed By: #### H TYLER CMP, TSH ####[facility] [address] [place] [address]Dr. Hardeep Rivera ALP [Catalytic activity/Vol] 153 U/L Critically high 46-116 [facility] Comment on above: Performed By: #### H TYLER CMP, TSH ####[facility] [address] [place], [place] [address]Dr. Preethiarabella Rivera ALT [Catalytic activity/Vol] 21 U/L Normal 14-59 [facility] Comment on above: Performed By: #### H TYLER CMP, TSH ####[facility] [address] [place], [place] [address]Dr. Hardeep Rivera Anion gap [Moles/Vol] 9.3 mmol/L Normal [facility] Comment on above: Performed By: #### H TYLER CMP, TSH ####[facility] [address] [place], [place] [address]Dr. Preethiarabella Rivera AST [Catalytic activity/Vol] 23 U/L Normal 15-37 [facility] Comment on above: Performed By: #### H TYLER CMP, TSH ####[facility] [address] [place], [place] [address]Dr. Hardeep Rivera Bilirubin [Mass/Vol] 0.6 mg/dL Normal 0.2-1.0 [facility] Comment on above: Performed By: #### H TYLER CMP, TSH ####[facility] [address] [place] [address]Dr. Hardeep Rivera Calcium [Mass/Vol] 8.4 mg/dL Critically low 8.5-10.1 Th e [facility] Comment on above: Performed By: #### H STRONATHANIEL, CMP, TSH ####[facility] [address] [place], [place] [address]Dr. Hardeep Rivera Chloride [Moles/Vol] 96 mmol/L Critically low 98-107 [facility] Comment on above: Performed By: #### H STROPN, CMP, TSH ####[facility] [address] [place] [address]Dr. Hardeep Rivera CO2 [Moles/Vol] 29.3 mmol/L Normal 21.0-32.0 [facility] Comment on above: Performed By: #### H STROPN, CMP, TSH ####[facility] [address] [place] [address]Dr. Hardeep Rivera Creatinine [Mass/Vol] 1.16 mg/dL Critically high 0.55-1.02 [facility] Comment on above: Performed By: #### H STROPN, CMP, TSH ####[facility] [address] [place] [address]Dr. Hardeep Rivera EGFR-AF SENEGALESE 55 mL/min/1.73m2 Critically low >=60 [facility] Comment on above: Performed By: #### H STROPN, CMP, TSH ####[facility] [address] [place] [address]Dr. Hardeep Rivera EGFR-NON AF SENEGALESE 45 mL/min/1.73m2 Critically low >=60 [facility] Comment on above: Performed By: #### H STROPN, CMP, TSH ####[facility] [address] [place] [address]Dr. Hardeep Rivera Globulin (S) [Mass/Vol] 2.9 g/dL Normal [facility] Comment on above: Performed By: #### H STROPN, CMP, TSH ####[facility] [address]ts[address] [place] [address]Dr. Hardeep Rivera Glucose [Mass/Vol] 105 mg/dL Normal 74-106 [facility] Comment on above: Performed By: #### H STROPN, CMP, TSH ####[facility] [address] [place] [address]Dr. Hardeep Rivera Potassium [Moles/Vol] 4.6 mmol/L Normal 3.5-5.1 [facility] Comment on above: Performed By: #### H STROPN, CMP, TSH ####[facility] [address] [place] [address]Dr. Hardeep Rivera Protein [Mass/Vol] 6.4 g/dL Normal 6.4-8.2 [facility] Comment on above: Performed By: #### H GLADIS SCOTT, TSH ####[facility] [address] [place] [address]Dr. Hardeep Rivera Sodium [Moles/Vol] 130 mmol/L Critically low 136-145 [facility] Comment on above: Performed By: #### H GLADIS SCOTT, TSH ####[facility] [address] [place] [address]Dr. Hardeep Rivera Urea nitrogen [Mass/Vol] 27.0 mg/dL Critically high 7.0-18.0 [facility] Comment on above: Performed By: #### H GLADIS SCOTT, TSH ####[facility] [address] [place], [place] [address]Dr. Hardeep Rivera Urea nitrogen/Creatinine [Mass ratio] 23.3 mg/mg Normal [facility] Comment on above: Performed By: #### H GLADIS SCOTT, TSH ####[facility] [address] [place] [address]Dr. Hardeep Rivera PROTIMEon 02-14-2023 INR Coag (PPP) [Relative time] 1.07 {INR} Normal [facility] Comment on above: Performed By: #### P T, PTT ####[facility] [address] [place], [place] [address]Dr. Hardeep Rivera INR GUIDELINES SEE BELOW Normal [facility] Comment on above: Result Comment: EDMUND RED INR: 2.0 - 3.0 CONDITIONS NOT LISTED BELOW 2.5 - 3.5 FOR PROSTHETIC HEART VALVE REPLACEMENT 2.5 - 3.5 RECURRENT THROMBOSIS Performed By: #### P T, PTT ####[facility] [address] [place], [place] [address]Dr. Hardeep Rivera PT Coag (PPP) [Time] 11.3 s Normal 9.0-11.6 [facility] Comment on above: Performed By: #### P T, PTT ####[facility] [address] [place] [id number]. Hardeep Rivera PTTon 02-14-2023 aPTT Coag (Bld) [Time] 29.1 s Normal 22.3-36.2 Th [facility] Comment on above: Performed By: #### P T, PTT ####[facility] [address] [place] [address]Dr. Hardeep Rivera TROPONIN, HIGH SENSITIVITYon 02-14-2023 HSTROP 10.4 pg/mL Normal 4.0-51.3 [facility] Comment on above: Result Comment: CUT- OFF POINTS HAVE BEEN ESTABLISHED BASED ON THE FOURTH UNIVERSAL DEFINITIONS OF MYOCARDIAL INFARCTION. THE UPPER REFERENCE LIMIT (URL) OF TROPONIN, DEFINED THE 99TH PERCENTILE OF cTnI DISTRIBUTION IN A REFERENCE POPULATION, HAS BEEN CONFIRMED THE DECISION THRESHOLD FOR CA DIAGNOSIS. Performed By: #### H TYLER CMP, TSH ####[facility] [address] [place], [place] [address]Dr. Hardeep Rivera TSHon 02-14-2023 TSH 1.237 uIU/mL Normal 0.358-3.740 [facility] Comment on above: Performed By: #### H TYLER CMP, TSH ####[facility] [address] [place] [address]Dr. Hardeep Rivera URINE MICROSCOPIC ONLYon BACTERIA NONE SEEN Normal NONE SEEN [facility] Comment on above: Performed By: #### Deedee PINON UMICRO #### [facility] [address] [place] [address] Dr. Hardeep Rivera Bacteria identified Cx Nom (U) NOT INDICATED Normal [facility] Comment on above: Performed By: #### E RUR UMICRO #### [facility] [address] [place] [address] Dr. Hardeep Rivera CAST NONE SEEN Normal NONE SEEN [facility] Comment on above: Performed By: #### E RUR UMICRO #### [facility] [address] [place] [address] Dr. Hardeep Rivera Crystals LM Nom (Urine sed) NONE SEEN Normal NONE SEEN [facility] Comment on above: Performed By: #### E RUR, UMICRO #### [facility] [address] [place] [address] [address] Hardeep Rivera Epithelial cells LM Ql (Urine sed) NONE SEEN Normal NONE SEEN /RARE The [facility] Comment on above: Performed By: #### E RUR, UMICRO #### [facility] [address] [place] [address] Dr. Hardeep Rivera MUCOUS NONE SEEN Normal NONE SEEN The [facility] Comment on above: Performed By: #### E RUR, UMICRO #### [facility] [address] [place] [address] Dr. Hardeep Rivera RBC 0-2 Normal 0-2 [facility] Comment on above: Performed By: #### E RUR, UMICRO #### [facility] [address] [place] [address] Dr. Hardeep Rivera WBC NONE SEEN Normal NONE SEEN The [facility] Comment on above: Performed By: #### E RUR, UMICRO #### [facility] [address] [place] [address] Dr. Hardeep Rivera XR CHEST 1 Von [...] JAZLYN DUBOSE Date: 2023-02-14 15:50 Normal [facility] FK506 (TACROLIMUS) WHOLE BLO ODon 02-13-2023 Tacrolimus (FK506), Blood 1.4 ng/mL Critically low 2.0-20.0 [facility] Comment on above: Result Comment: Trou gh (immediately following transplant) 15.0 . Trough (steady state, 2 weeks or more after transplant): 3.0 - 8.0 . Performed by LC-MS/MS technology. Performed By: #### E RUR #### [facility] [address] [place] [address] Dr. Hardeep Rivera PROF 14(COMP METB)on 023 Albumin [Mass/Vol] 3.5 g/dL Normal 3.4-5.0 [facility] Comment on above: Performed By: #### C MP ####[facility] [address] [place], [place] [address]Dr. Hardeep Rivera Albumin/Globulin [Mass ratio] 1.2 {ratio} Normal [facility] Comment on above: Performed By: #### C MP ####[facility] [address] [place], [place] [address]Dr. Hardeep Rivera ALP [Catalytic activity/Vol] 149 U/L Critically high 46-116 [facility] Comment on above: Performed By: #### C MP ####[facility] [address] [place], [place] [address]Dr. Hardeep Rivera ALT [Catalytic activity/Vol] 19 U/L Normal 14-59 [facility] Comment on above: Performed By: #### C MP ####[facility] [address] [place], [place] [address]Dr. Hardeep Rivera Anion gap [Moles/Vol] 11.7 mmol/L Normal [facility] Comment on above: Performed By: #### C MP ####[facility] [address] [place], [place] [address]Dr. Hardeep Rivera AST [Catalytic activity/Vol] 27 U/L Normal 15-37 [facility] Comment on above: Performed By: #### C MP ####[facility] [address]pe[address] [place], [place] [address]Dr. Hardeep Rivera Bilirubin [Mass/Vol] 0.6 mg/dL Normal 0.2-1.0 [facility] Comment on above: Performed By: #### C MP ####[facility] I[address] [place], [place] [address]Dr. Hardeep Rievra Calcium [Mass/Vol] 8.5 mg/dL Normal 8.5-10.1 [facility] Comment on above: Performed By: #### C MP ####[facility] [address] [place], [place] [address]DrLaura Rivera Chloride [Moles/Vol] 96 mmol/L Critically low 98-107 [facility] Comment on above: Performed By: #### C MP ####[facility] Y[address] [place], [place] [address]Dr. Hardeep Rivera CO2 [Moles/Vol] 28.1 mmol/L Normal 21.0-32.0 [facility] Comment on above: Performed By: #### C MP ####[facility] F[address]mf[address] [place], [place] [address]Dr. Hardeep Rivera Creatinine [Mass/Vol] 1.24 mg/dL Critically high 0.55-1.02 [facility] Comment on above: Performed By: #### C MP ####[facility] [address] [place], [place] [address]Dr. Hardeep Rivera EGFR-AF SENEGALESE 51 mL/min/1.73m2 Critically low >=60 [facility] Comment on above: Performed By: #### C MP ####[facility] [address] [place], [place] [address]Dr. Hardeep Rivera EGFR-NON AF SENEGALESE 42 mL/min/1.73m2 Critically low >=60 [facility] Comment on above: Performed By: #### C MP ####[facility] [address] [place], [place] [address]Dr. Hardeep Rivera Globulin (S) [Mass/Vol] 3.0 g/dL Normal [facility] Comment on above: Performed By: #### C MP ####[facility] [address] [place], [place] [address]Dr. Hardeep Rivera Glucose [Mass/Vol] 141 mg/dL Critically high 74-106 [facility] Comment on above: Performed By: #### C MP ####[facility] [address]gsxmj[address] [place], [place] [address]Dr. Hardeep Rivera Potassium [Moles/Vol] 4.8 mmol/L Normal 3.5-5.1 [facility] Comment on above: Performed By: #### C MP ####[facility] [address] [place], [place] [address]DrLaura Rivera Protein [Mass/Vol] 6.5 g/dL Normal 6.4-8.2 [facility] Comment on above: Performed By: #### C MP ####[facility] [address] [place] [address]DrLaura Rivera Sodium [Moles/Vol] 131 mmol/L Critically low 136-145 Th [facility] Comment on above: Performed By: #### C MP ####[facility] [address] [place] [address]DrLaura Rivera Urea nitrogen [Mass/Vol] 29.0 mg/dL Critically high 7.0-18.0 [facility] Comment on above: Performed By: #### C MP ####[facility] [address] [place], [place] [address]DrLaura Rivera Urea nitrogen/Creatinine [Mass ratio] 23.4 mg/mg Normal [facility] Comment on above: Performed By: #### C MP ####[facility] [address] [place] [address]DrLaura Rivera BNPon 01-09-2023 Natriuretic peptide B (Bld) [Mass/Vol] 336.0 pg/mL Normal <=1,800.0 [facility] Comment on above: Performed By: #### C MP, TSH, BNP, T7 ####[facility] [address] [place] [address]DrLaura Rivera CBC AUTO DIFFon 01-09-2023 BASO # 0.0 103/ul Normal 0.0-0.1 [facility] Comment on above: Performed By: #### C BC #### [facility] [address] [place] [address] Dr. Hardeep Rivera Basophils/100 WBC (Bld) 0.4 % Normal 0.2-2.0 [facility] Comment on above: Performed By: #### C BC #### [facility] [address] [place] [address] Dr. Hardeep Rivera EO # 0.3 103/ul Normal 0.0-0.7 [facility] Comment on above: Performed By: #### C BC #### [facility] [address] [place] [address] Dr. Hardeep Rivera Eosinophils/100 WBC (Bld) 4.4 % Normal 0.9-7.0 [facility] Comment on above: Performed By: #### C BC #### [facility] [address] [place] [address] Dr. Hardeep Rivera Erythrocyte distribution width (RBC) [Ratio] 12.3 % Normal 11.0-15.0 [facility] Comment on above: Performed By: #### C BC #### [facility] [address] [place] [address] Dr. Hadreep Rivera Hematocrit (Bld) [Volume fraction] 43.3 % Normal 36.0-48.0 [facility] Comment on above: Performed By: #### C BC #### [facility] [address] [place] [address] Dr. Hardeep Rivera Hemoglobin (Bld) [Mass/Vol] 13.5 g/dL Normal 12.0-16.0 [facility] Comment on above: Performed By: #### C BC #### [facility] [address] [place] [address] Dr. Hardeep Rivera IG # 0.02 10e3/ul Normal 0.00-0.03 [facility] Comment on above: Performed By: #### C BC #### [facility] [address] [place] [address] Dr. Hardeep Rivera IG % 0.3 % Normal 0.0-0.5 [facility] Comment on above: Performed By: #### C BC #### [facility] [address] [place] [address] Dr. Hardeep Rivera LYMPH # 1.1 103/ul Critically low 1.2-3.8 [facility] Comment on above: Performed By: #### C BC #### [facility] [address] [place] [address] Dr. Hardeep Rivera Lymphocytes/100 WBC (Bld) 16.0 % Critically low 20.5-60.0 [facility] Comment on above: Performed By: #### C BC #### [facility] [address] [place] [address] Dr. Hardeep Rivera MANUAL DIFF REQ NO Normal [facility] Comment on above: Performed By: #### C BC #### [facility] [address] [place] [address] Dr. Hardeep Rivera MCH (RBC) [Entitic mass] 28.4 pg Normal 26.7-34.0 [facility] Comment on above: Performed By: #### C BC #### [facility] [address] [place] [address] Dr. Hardeep Rivera MCHC (RBC) [Mass/Vol] 31.2 g/dL Normal 29.9-35.2 [facility] Comment on above: Performed By: #### C BC #### [facility] [address] [place] [address] Dr. Hardeep Rivera MCV (RBC) [Entitic vol] 91.0 fL Normal 81.0-99.0 [facility] Comment on above: Performed By: #### C BC #### [facility] [address] [place] [address] Dr. Hardeep Rivera MONO # 1.0 103/ul Critically high 0.3-0.8 [facility] Comment on above: Performed By: #### C BC #### [facility] [address] [place] [address] Dr. Hardeep Rivera Monocytes/100 WBC (Bld) 14.7 % Critically high 1.7-12.0 [facility] Comment on above: Performed By: #### C BC #### [facility] [address] [place] [address] Dr. Hardeep Rivera NEUT # 4.4 103/ul Normal 1.4-6.5 [facility] Comment on above: Performed By: #### C BC #### [facility] [address] [place] [address] Dr. Hardeep Rivera Neutrophils/100 WBC (Bld) 64.2 % Normal 43.0-75.0 [facility] Comment on above: Performed By: #### C BC #### [facility] [id number] Hardeep Rivera Platelet mean volume (Bld) [Entitic vol] 9.5 fL Normal 9.5-13.5 [facility] Comment on above: Performed By: #### C BC #### [facility] [id number] Hardeep Rivera PLT 238 103/ul Normal 150-450 [facility] Comment on above: Performed By: #### C BC #### [facility] [address] [address] [address] Hardeep Rivera RBC 4.76 106/ul Normal 4.20-5.40 [facility] Comment on above: Performed By: #### C BC #### [facility] [address] [address] [address] Hardeep Rivera WBC 6.8 103/ul Normal 4.0-11.0 [facility] Comment on above: Performed By: #### C BC #### [facility] [address] [address] [address] Hardeep Rivera FREE THYROXINE INDEX T7on FTI 3.96 Normal 1.30-4.50 [facility] Comment on above: Performed By: #### C MP, TSH, BNP, T7 ####[facility] [address] [place] [address]Dr. Hardeep Rivera T3U 35.0 % Normal 30.0-39.0 [facility] Comment on above: Performed By: #### C MP, TSH, BNP, T7 ####[facility] [address] [place], [place] [address]PvDr. Hardeep Rivera T4 [Mass/Vol] 11.30 ug/dL Normal 4.80-13.90 [facility] Comment on above: Performed By: #### C MP, TSH, BNP, T7 ####[facility] [address] [place] [id number]. Hardeep Rivera PROF 14(COMP METB)on 023 Albumin [Mass/Vol] 3.9 g/dL Normal 3.4-5.0 [facility] Comment on above: Performed By: #### C MP, TSH, BNP, T7 ####[facility] [address] [place] [address]Dr. Hardeep Rivera Albumin/Globulin [Mass ratio] 1.2 {ratio} Normal [facility] Comment on above: Performed By: #### C MP, TSH, BNP, T7 ####[facility] [address] [place] [address]Dr. Hardeep Rivera ALP [Catalytic activity/Vol] 151 U/L Critically high 46-116 [facility] Comment on above: Performed By: #### C MP, TSH, BNP, T7 ####[facility] [address] [place] [address]Dr. Hardeep Rivera ALT [Catalytic activity/Vol] 30 U/L Normal 14-59 [facility] Comment on above: Performed By: #### C MP, TSH, BNP, T7 ####[facility] [address] [place], [place] [address]Dr. Hardeep Rivera Anion gap [Moles/Vol] 15.6 mmol/L Normal [facility] Comment on above: Performed By: #### C MP, TSH, BNP, T7 ####[facility] [address] [place], [place] [address]Dr. Hardeep Rivera AST [Catalytic activity/Vol] 23 U/L Normal 15-37 [facility] Comment on above: Performed By: #### C MP, TSH, BNP, T7 ####[facility] [address] [place], [place] [address]Dr. Hardeep Rivera Bilirubin [Mass/Vol] 0.7 mg/dL Normal 0.2-1.0 [facility] Comment on above: Performed By: #### C MP, TSH, BNP, T7 ####[facility] [place] [address] [place], [place] [address]Dr. Hardeep Rivera Calcium [Mass/Vol] 9.0 mg/dL Normal 8.5-10.1 [facility] Comment on above: Performed By: #### C MP, TSH, BNP, T7 ####[facility] [address] [place] [address]Dr. Hardeep Rivera Chloride [Moles/Vol] 97 mmol/L Critically low 98-107 [facility] Comment on above: Performed By: #### C MP, TSH, BNP, T7 ####[facility] [address] [place] [address]Dr. Hardeep Rivera CO2 [Moles/Vol] 26.1 mmol/L Normal 21.0-32.0 [facility] Comment on above: Performed By: #### C MP, TSH, BNP, T7 ####[facility] [place] [address] [place] [address]Dr. Hardeep Rivera Creatinine [Mass/Vol] 1.78 mg/dL Critically high 0.55-1.02 [facility] Comment on above: Performed By: #### C MP, TSH, BNP, T7 ####[facility] [place] [address] [place], [place] [address]Dr. Hardeep Miguel EGFR-AF SENEGALESE 33 mL/min/1.73m2 Critically low >=60 [facility] Comment on above: Performed By: #### C MP, TSH, BNP, T7 ####[facility] [place] [address] [place], [place] [address]Dr. Hardeep Miguel EGFR-NON AF SENEGALESE 28 mL/min/1.73m2 Critically low >=60 [facility] Comment on above: Performed By: #### C MP, TSH, BNP, T7 ####[facility] [place] [address] [place], [place] [address]Dr. Hardeep Rivera Globulin (S) [Mass/Vol] 3.3 g/dL Normal [facility] Comment on above: Performed By: #### C MP, TSH, BNP, T7 ####[facility] [place] [address] [place], [place] [address]Dr. Hardeep Rivera Glucose [Mass/Vol] 127 mg/dL Critically high 74-106 T [facility] Comment on above: Performed By: #### C MP, TSH, BNP, T7 ####[facility] [place] [address] [place], [place] [address]Dr. Hardeep Rivera Potassium [Moles/Vol] 3.7 mmol/L Normal 3.5-5.1 [facility] Comment on above: Performed By: #### C MP, TSH, BNP, T7 ####[facility] [place] [address] [address]Dr. Hardeep Rivera Protein [Mass/Vol] 7.2 g/dL Normal 6.4-8.2 [facility] Comment on above: Performed By: #### C MP, TSH, BNP, T7 ####[facility] [place] [address] [address]Dr. Hardeep Rivera Sodium [Moles/Vol] 135 mmol/L Critically low 136-145 Th [facility] Comment on above: Performed By: #### C MP, TSH, BNP, T7 ####[facility] [place] [address] [address]Dr. Hardeep Rivera Urea nitrogen [Mass/Vol] 54.0 mg/dL Critically high 7.0-18.0 [facility] Comment on above: Performed By: #### C MP, TSH, BNP, T7 ####[facility] [place] [address] [address]Dr. Hardeep Rivera Urea nitrogen/Creatinine [Mass ratio] 30.3 mg/mg Normal [facility] Comment on above: Performed By: #### C MP, TSH, BNP, T7 ####[facility] [place] [address] [address]Dr. Hardeep Rivera TSHon 01-09-2023 TSH 1.097 uIU/mL Normal 0.358-3.740 [facility] Comment on above: Performed By: #### C MP, TSH, BNP, T7 ####[facility] [place] [address] [address]Dr. Hardeep Rivera ECHOCARDIO M/2D COMPLETEon 0 12-13-2022 ECHOCARDIO M/2D COMPLETE Patient: SYLVIA HERRERA Exam Date: 12/13/2022 : 1945 Gender:F Ordering : [facility] Admission #: [id number] Family : Order #: [id number] CLICK HERE TO VIEW EXAM ECHOCARDIOGRAM REPORT [...] Area (VTI): 2.23 cm2, 2.23 cm2 Deceleration Cherry: 1.44 m/s2 Pressure Half-Time: 850.98 ms Peak [...] Nolan M.D. on 12/14/2022 at 13:49 Normal [facility] US ALAN DOP LEG BILon 023 [...] HAI FOSTER Date: 2022-12-13 10:51 Normal [facility] BNPon 12-11-2022 Natriuretic peptide B (Bld) [Mass/Vol] 457.0 pg/mL Normal <=1,800.0 [facility] Comment on above: Performed By: #### RANDALL OLSON #### [facility] [place] Laboratory [address] [place] [address] Dr. Hardeep Rivera CBC AUTO DIFFon 12-11-2022 BASO # 0.0 103/ul Normal 0.0-0.1 [facility] Comment on above: Performed By: #### RANDALL OLSON #### [facility] [place] Laboratory [address] [place] [address] Dr. Hardeep Rivera Basophils/100 WBC (Bld) 0.4 % Normal 0.2-2.0 [facility] Comment on above: Performed By: #### RANDALL OLSON #### [facility] [place] Laboratory [address] [place] [address] Dr. Hardeep Rivera EO # 0.2 103/ul Normal 0.0-0.7 [facility] Comment on above: Performed By: #### RANDALL OLSON #### [facility] [place] Laboratory [address] [place] [address] Dr. Hardeep Rivera Eosinophils/100 WBC (Bld) 2.7 % Normal 0.9-7.0 [facility] [place] Comment on above: Performed By: #### HARI OLSONRO #### [facility] [place] Laboratory [address] [place] [address] Dr. Hardeep Rivera Erythrocyte distribution width (RBC) [Ratio] 11.9 % Normal 11.0-15.0 [facility] [place] Comment on above: Performed By: #### HARI OLSONRO #### [facility] [place] Laboratory [address] [place] [address] Dr. Hardeep Rivera Hematocrit (Bld) [Volume fraction] 40.2 % Normal 36.0-48.0 [facility] [place] Comment on above: Performed By: #### Deeede PINON UMICRO #### [facility] [place] Laboratory [address] [place] [address] Dr. Hardeep Rivera Hemoglobin (Bld) [Mass/Vol] 13.5 g/dL Normal 12.0-16.0 [facility] Comment on above: Performed By: #### Deedee PINON UMICRO #### [facility] [place] Laboratory [address] [place] [address] Dr. Hardeep Rivera IG # 0.03 10e3/ul Normal 0.00-0.03 [facility] Comment on above: Performed By: #### E KATHRIN UMICRO #### [facility] [place] Laboratory [address] [place] [address] Dr. Hardeep Rivera IG % 0.4 % Normal 0.0-0.5 [facility] Comment on above: Performed By: #### Deedee PINON UMICRO #### [facility] [place] Laboratory [address] [place] [address] Dr. Hardeep Rivera LYMPH # 0.9 103/ul Critically low 1.2-3.8 [facility] Comment on above: Performed By: #### Deedee PINON UMICRO #### [facility] [place] Laboratory [address] [place] [address] Dr. Hardeep Rivera Lymphocytes/100 WBC (Bld) 11.3 % Critically low 20.5-60.0 [facility] Comment on above: Performed By: #### Deedee PINON UMICRO #### [facility] [place] Laboratory [address] [place] [address] Dr. Hardeep Rivera MANUAL DIFF REQ NO Normal [facility] Comment on above: Performed By: #### Deedee PINON UMICRO #### [facility] [place] Laboratory [address] [place] [address] Dr. Hardeep Rivera MCH (RBC) [Entitic mass] 28.4 pg Normal 26.7-34.0 [facility] Comment on above: Performed By: #### E KATHRIN UMICRO #### [facility] [place] Laboratory [address] [place] [address] Dr. Hardeep Rivera MCHC (RBC) [Mass/Vol] 33.6 g/dL Normal 29.9-35.2 [facility] [place] Comment on above: Performed By: #### HARI OLSONRO #### [facility] [place] Laboratory [address] [place] [address] Dr. Hardeep Rivera MCV (RBC) [Entitic vol] 84.5 fL Normal 81.0-99.0 [facility] [place] Comment on above: Performed By: #### Deedee PINON UMICRO #### [facility] [place] Laboratory [address] [place] [address] Dr. Hardeep Rivera MONO # 1.0 103/ul Critically high 0.3-0.8 [facility] Comment on above: Performed By: #### AKSHAT OLSONICRO #### [facility] [place] Laboratory [address] [place] [address] Dr. Hardeep Rivera Monocytes/100 WBC (Bld) 12.5 % Critically high 1.7-12.0 [facility] Comment on above: Performed By: #### Deedee PINON UMICRO #### [facility] [place] Laboratory [address] [place] [address] Dr. Hardeep Rivera NEUT # 5.9 103/ul Normal 1.4-6.5 [facility] Comment on above: Performed By: #### AKSHAT OLSONICRO #### [facility] [place] Laboratory [address] [place] [address] Dr. Hardeep Rivera Neutrophils/100 WBC (Bld) 72.7 % Normal 43.0-75.0 [facility] Comment on above: Performed By: #### Deedee PINON UMICRO #### [facility] [place] Laboratory [address] [place] [address] Dr. Hardeep Rivera Platelet mean volume (Bld) [Entitic vol] 8.6 fL Critically low 9.5-13.5 [facility] Comment on above: Performed By: #### Deedee PINON UMICRO #### [facility] [place] Laboratory [address] [place] [address] Dr. Hardeep Rivera PLT 226 103/ul Normal 150-450 [facility] Comment on above: Performed By: #### HARI OLSONRO #### [facility] [place] Laboratory [address] [place] [address] Dr. Hardeep Rivera RBC 4.76 106/ul Normal 4.20-5.40 [facility] Comment on above: Performed By: #### HARI OLSONRO #### [facility] [place] Laboratory [address] [place] [address] Dr. Hardeep Rivera WBC 8.2 103/ul Normal 4.0-11.0 [facility] Comment on above: Performed By: #### AKSHAT OLSONICRO #### [facility] [place] Laboratory [address] [place] [address] Dr. Hardeep Rivera FREE THYROXINE INDEX T7on FTI 3.40 Normal 1.30-4.50 [facility] Comment on above: Performed By: #### HARI OLSONRO #### [facility] [place] Laboratory [address] [place] [address] Dr. Hardeep Rivera T3U 34.0 % Normal 30.0-39.0 [facility] Comment on above: Performed By: #### HARI OLSONRO #### [facility] [place] Laboratory [address] [place] [address] Dr. Hardeep Rivera T4 [Mass/Vol] 10.00 ug/dL Normal 4.80-13.90 [facility] Comment on above: Performed By: #### HARI OLSONRO #### [facility] [place] Laboratory [address] [place] [address] Dr. Hardeep Rivera PROF 14(COMP METB)on 023 Albumin [Mass/Vol] 3.8 g/dL Normal 3.4-5.0 [facility] Comment on above: Performed By: #### HARI OLSONRO #### [facility] [place] Laboratory [address] [place] [address] Dr. Hardeep Rivera Albumin/Globulin [Mass ratio] 1.1 {ratio} Normal [facility] Comment on above: Performed By: #### HARI OLSONRO #### [facility] [place] Laboratory [address] [place] [address] Dr. Hardeep Rivera ALP [Catalytic activity/Vol] 192 U/L Critically high 46-116 [facility] Comment on above: Performed By: #### RANDALL OSLON #### [facility] [place] Laboratory [address] [place] [address] Dr. Hardeep Rivera ALT [Catalytic activity/Vol] 22 U/L Normal 14-59 [facility] Comment on above: Performed By: #### RANDALL OLSON #### [facility] [place] Laboratory [address] [place] [address] Dr. Hardeep Rivera Anion gap [Moles/Vol] 11.4 mmol/L Normal [facility] Comment on above: Performed By: #### RANDALL OLSON #### [facility] [place] Laboratory [address] [place] [address] Dr. Hardeep Rivera AST [Catalytic activity/Vol] 22 U/L Normal 15-37 [facility] Comment on above: Performed By: #### RANDALL OLSON #### [facility] [place] Laboratory [address] [place] [address] Dr. Hardeep Rivera Bilirubin [Mass/Vol] 0.5 mg/dL Normal 0.2-1.0 [facility] Comment on above: Performed By: #### RANDALL OLSON #### [facility] [place] Laboratory [address] [place] [address] Dr. Hardeep Rivera Calcium [Mass/Vol] 9.1 mg/dL Normal 8.5-10.1 [facility] Comment on above: Performed By: #### HARI OLSONRO #### [facility] [place] Laboratory [address] [place] [address] Dr. Hardeep Rivera Chloride [Moles/Vol] 93 mmol/L Critically low 98-107 [facility] Comment on above: Performed By: #### RANDALL OLSON #### [facility] [place] Laboratory [address] [place] [address] Dr. Hardeep Rivera CO2 [Moles/Vol] 30.8 mmol/L Normal 21.0-32.0 [facility] Comment on above: Performed By: #### HARI OLSONRO #### [facility] [place] Laboratory [address] [place] [address] Dr. Hardeep Rivera Creatinine [Mass/Vol] 1.49 mg/dL Critically high 0.55-1.02 [facility] Comment on above: Performed By: #### E RUR, UMICRO #### [facility] [place] Laboratory [address] [place] [address] Dr. Hardeep Rivera EGFR-AF SENEGALESE 41 mL/min/1.73m2 Critically low >=60 [facility] Comment on above: Performed By: #### E RUR, UMICRO #### [facility] [place] Laboratory [address] [place] [address] Dr. Hardeep Rivera EGFR-NON AF S[place]GALESE 34 mL/min/1.73m2 Critically low >=60 [facility] Comment on above: Performed By: #### E RUR, UMICRO #### [facility] [place] [facility] [address] [place] [address] Dr. Hardeep Rivera Globulin (S) [Mass/Vol] 3.4 g/dL Normal [facility] Comment on above: Performed By: #### E RUR, UMICRO #### [facility] [place] [facility] [address] [place] [address] Dr. Hardeep Rivera Glucose [Mass/Vol] 116 mg/dL Critically high 74-106 T [facility] Comment on above: Performed By: #### E RUR, UMICRO #### [facility] [place] [facility] [address] [place] [address] Dr. Hardeep Rivera Potassium [Moles/Vol] 4.2 mmol/L Normal 3.5-5.1 [facility] Comment on above: Performed By: #### E RUR, UMICRO #### [facility] [place] [facility] [address] [place] [address] Dr. Hardeep Rivera Protein [Mass/Vol] 7.2 g/dL Normal 6.4-8.2 [facility] Comment on above: Performed By: #### E RUR, UMICRO #### [facility] [place] [facility] [address] [place] [address] Dr. Hardeep Rivera Sodium [Moles/Vol] 131 mmol/L Critically low 136-145 Th [facility] Comment on above: Performed By: #### RANDALL OLSON #### [facility] [place] [facility] [address] [place] [address] Dr. Hardeep Rivera Urea nitrogen [Mass/Vol] 38.0 mg/dL Critically high 7.0-18.0 [facility] Comment on above: Performed By: #### HARI OLSONRO #### [facility] [place] Laboratory [address] [address] [address] Hardeep Rivera Urea nitrogen/Creatinine [Mass ratio] 25.5 mg/mg Normal [facility] Comment on above: Performed By: #### RANDALL OLSON #### [facility] [place] [facility] [address] [place] [address] Dr. Hardeep Rivera TSHon 12-11-2022 TSH 6.407 uIU/mL Critically high 0.358-3.740 [facility] Comment on above: Performed By: #### RANDALL OLSON #### [facility] [place] Laboratory [address] [place] [address] Dr. Hardeep Rivera [facility]19 PCR [facility]01 SARS-CoV-2 (COVID-19) RNA ULICES+probe Ql (Unsp spec) Not detected Normal NOT DETECTED [facility] Comment on above: Result Comment: This test is not yet approved or cleared by the [place] FDA. When there are no FDA-approved or cleared tests available, and other criteria are met, FDA can make tests available under an emergency access mechanism called an Emergency Use Authorization (EUA). The EUA for this test is supported by the [employer] of Health and Human Service's (HHS's) declaration [...] consistent with SARS-CoV-2. Performed By: #### C [facility] #### [facility] [place] Laboratory [address] [place] [address] Dr. Hardeep Rivera INFLUENZA A AND B AGon 11-14 [facility] SEE BELOW Normal [facility] [place] Comment on above: Result Comment: Nega tive for Flu A protein angiten. Infection due to Flu A cannot be ruled out. Flu A angiten in the sample may be below the detection limit of the test. Performed By: #### Deedee PINON UMICRO #### [facility] [place] [facility] [address] [place] [address] Dr. Hardeep Rivera [facility] SEE BELOW Normal [facility] Comment on above: Result Comment: Nega tive for Flu B protein antigen. Infection due to Flu B cannot be ruled out. Flu B antigen in the sample may be below the detection limit of the test. Performed By: #### Deedee PINON UMICRO #### [facility] [place] Laboratory [address] [place] [address] Dr. Hardeep Rivera INFLUENZA A AG Negative Normal NEGATIVE SEE COMMENT [facility] [place] Comment on above: Performed By: #### Deedee PINON ICRO #### [facility] [place] Laboratory [address] [place] [address] Dr. Hardeep Rivera INFLUENZA B AG Negative Normal NEGATIVE SEE COMMENT [facility] [place] Comment on above: Performed By: #### Deedee PINON UMICRO #### [facility] [place] Laboratory [address] [place] [address] Dr. Hardeep Rivera INTERNAL CONTROLS Within Normal Limits Normal Wi thin Normal Limits [facility] [place] Comment on above: Performed By: #### Deedee PINON UMICRO #### [facility] [place] Laboratory [address] [place] [address] Dr. Hardeep Rivera Covid-19 PCR ([facility])on SARS-CoV-2 (COVID-19) RNA ULICES+probe Ql (Unsp spec) Not detected Normal NOT DETECTED [facility] [place] Comment on above: Result Comment: This test is not yet approved or cleared by the [place] FDA. When there are no FDA-approved or cleared tests available, and other criteria are met, FDA can make tests available under an emergency access mechanism called an Emergency Use Authorization (EUA). The EUA for this test is supported by the [place] of Health and Human Service's (HHS's) declaration [...] consistent with SARS-CoV-2. Performed By: #### C [facility] #### [facility] [place] Laboratory [address] [place] [address] Dr. Hardeep Rivera INFLUENZA A AND B [facility] 10-03 [facility] SEE BELOW Normal [facility] Comment on above: Result Comment: Nega tive for Flu A protein angiten. Infection due to Flu A cannot be ruled out. Flu A angiten in the sample may be below the detection limit of the test. Performed By: #### E AKSHAT PINONICRO #### [facility] [place] Laboratory [address] [place] [address] Dr. Hardeep Rivera [facility] SEE BELOW Normal [facility] Comment on above: Result Comment: Nega tive for Flu B protein antigen. Infection due to Flu B cannot be ruled out. Flu B antigen in the sample may be below the detection limit of the test. Performed By: #### E KATHRIN UMICRO #### [facility] [place] Laboratory [address] [place] [address] Dr. Hardeep Rivera INFLUENZA A AG Negative Normal NEGATIVE SEE COMMENT [facility] [place] Comment on above: Performed By: #### E KATHRIN, UMICRO #### [facility] [place] Laboratory [address] [place] [address] Dr. Hardeep Rivera INFLUENZA B AG Negative Normal NEGATIVE SEE COMMENT [facility] Comment on above: Performed By: #### E RUR, ICRO #### [facility] [place] Laboratory [address], [place] [address] Dr. Hardeep Rivera INTERNAL CONTROLS Within Normal Limits Normal Wi thin Normal Limits [facility] [place] Comment on above: Performed By: #### E COLLINSR, ICRO #### [facility] [place] [facility] [address], [place] [address] Dr. Hard[facility] SYLVIA HERRERA ([id number]) 1945 F Date Time Provider Department 08/16/22 SOY MCCANN [facility] ISACC During your visit today, we recorded [...] mg by mouth three times daily. - koeczx-hchhqqmz-ybsfx se (CREON) 24,000-76,000 -120,000 unit cpDR Take [...] [J18.1] 12/03/2014 09/02/2019 DREW (acute kidney injury) ([facility]) [N17.9] 12/03/2014 Anxiety disorder [F41.9] 07/05/2015 Pain [R52] 11/14/2017 09/02/2019 Encounter Status:Closed by SOY MCCANN [facility]16/22 [facility] AM[facility] 08-04-2022 Amylase [Catalytic activity/Vol] 155 U/L Critically high 25-115 [facility] [place] Comment on above: Performed By: #### C ABAD MORE AMY ####[facility] [place] [address] [address]Dr. Preethiarabella Rivera CBC AUTO DIFFon 08-04-2022 BASO # 0.0 103/ul Normal 0.0-0.1 [facility] [place] Comment on above: Performed By: #### C BC ####[facility] [place] [address] [address]Dr. Hardeep Rivera Basophils/100 WBC (Bld) 0.3 % Normal 0.2-2.0 [facility] [place] Comment on above: Performed By: #### C BC ####[facility] [place] [address] [place], [place] [address]Dr. Hardeep Rivera EO # 0.1 103/ul Normal 0.0-0.7 [facility] [place] Comment on above: Performed By: #### C BC ####[facility] [place] [address] [place], [place] [address]Dr. Hardeep Rivera Eosinophils/100 WBC (Bld) 1.2 % Normal 0.9-7.0 [facility] [place] Comment on above: Performed By: #### C BC ####[facility] [place] [address] [place], [place] [address]Dr. Hardeep Rivera Erythrocyte distribution width (RBC) [Ratio] 12.2 % Normal 11.0-15.0 [facility] [place] Comment on above: Performed By: #### C BC ####[facility] [place] [address] [place], [place] [address]Dr. Hardeep Rivera Hematocrit (Bld) [Volume fraction] 38.3 % Normal 36.0-48.0 [facility] [place] Comment on above: Performed By: #### C BC ####[facility] [place] [address] [place], [place] [address]Dr. Hardeep Rivera Hemoglobin (Bld) [Mass/Vol] 12.9 g/dL Normal 12.0-16.0 [facility] [place] Comment on above: Performed By: #### C BC ####[facility] [place] [address] [id number]. Hardeep Rivera IG # 0.02 10e3/ul Normal 0.00-0.03 [facility] Comment on above: Performed By: #### C BC ####[facility] [place] [address] [id number]. Hardeep Rivera IG % 0.3 % Normal 0.0-0.5 [facility] Comment on above: Performed By: #### C BC ####[facility] [place] [address] [place] [address]Dr. Hardeep Rivera LYMPH # 1.1 103/ul Critically low 1.2-3.8 [facility] Comment on above: Performed By: #### C BC ####[facility] [place] [address]fcs[address] [place] [address]Dr. Hardeep Rivera Lymphocytes/100 WBC (Bld) 16.6 % Critically low 20.5-60.0 [facility] Comment on above: Performed By: #### C BC ####[facility] [place] [address]tf[address] [place] [address]Dr. Hardeep Rivera MANUAL DIFF REQ NO Normal [facility] Comment on above: Performed By: #### C BC ####[facility] [place] [address] [place] [id number]. Hardeep Rivera MCH (RBC) [Entitic mass] 29.7 pg Normal 26.7-34.0 [facility] Comment on above: Performed By: #### C BC ####[facility] [place] [address] [place] [id number]. Hardeep Rivera MCHC (RBC) [Mass/Vol] 33.7 g/dL Normal 29.9-35.2 [facility] [place] Comment on above: Performed By: #### C BC ####[facility] [place] [address] [place] [id number]. Hardeep Rivera MCV (RBC) [Entitic vol] 88.2 fL Normal 81.0-99.0 [facility] Comment on above: Performed By: #### C BC ####[facility] [place] [address] [place] [id number]. Hardeep Rivera MONO # 0.7 103/ul Normal 0.3-0.8 [facility] [place] Comment on above: Performed By: #### C BC ####[facility] [place] [address] [place] [address]Dr. Hardeep Rivera Monocytes/100 WBC (Bld) 11.1 % Normal 1.7-12.0 [facility] [place] Comment on above: Performed By: #### C BC ####[facility] [place] [address] [place] [id number]. Hardeep Rivera NEUT # 4.6 103/ul Normal 1.4-6.5 [facility] [place] Comment on above: Performed By: #### C BC ####[facility] [place] [address] [place] [address]Dr. Hardeep Rivera Neutrophils/100 WBC (Bld) 70.5 % Normal 43.0-75.0 [facility] [place] Comment on above: Performed By: #### C BC ####[facility] [place] [address]kkca[address] [place] [phone]. Hardeep Rivera Platelet mean volume (Bld) [Entitic vol] 9.4 fL Critically low 9.5-13.5 [facility] Comment on above: Performed By: #### C BC ####[facility] [place] [address]txltgb[address] [place] [phone]. Hardeep Rivera PLT 203 103/ul Normal 150-450 [facility] [place] Comment on above: Performed By: #### C BC ####[facility] [place] [address]vb[address] [place] [phone]. Hardeep Rivera RBC 4.34 106/ul Normal 4.20-5.40 [facility] [place] Comment on above: Performed By: #### C BC ####[facility] [place] [address]xbdf[address] [place] [phone]. Hardeep Rivera WBC 6.5 103/ul Normal 4.0-11.0 [facility] [place] Comment on above: Performed By: #### C BC ####[facility] [place] [address] [place], [place] [address] ABD/PELVIS WO CONon 08-04 [...] ALEXSANDER HARDING Date: 2022-08-04 20:12 Normal [facility] [place] Covid-19 PCR (CVDTBH)on SARS-CoV-2 (COVID-19) RNA ULICES+probe Ql (Unsp spec) Not detected Normal NOT DETECTED The [facility] [place] Comment on above: Result Comment: When diagnostic [...] for this test is supported by the [employer] Quality Leader of Health and Human Service's declaration that [...] be used). Performed By: #### C VDTBH ####[facility] [place] [address] [place], [place] [address]Dr. Hardeep Rivera ER URINE PROFILEon 2 Bilirubin Ql (U) Negative Normal NEGATIVE [facility] Comment on above: Performed By: #### E RUR #### [facility] [place] Laboratory [address] [place], [place] [address] Dr. Hardeep Rivera Clarity (U) CLEAR Normal CLEAR [facility] [place] Comment on above: Performed By: #### E RUR #### [facility] [place] Laboratory [address] [place] [address] Dr. Hardeep Rivera Color (U) LT. YELLOW Normal YELLOW [facility] Comment on above: Performed By: #### E RUR #### [facility] [place] Laboratory [address] [place] [address] Dr. Hardeep FRANCIS A micrscopic examination will be performed if indicated. Normal The [facility] [place] Comment on above: Performed By: #### E RUR #### [facility] [place] Laboratory [address] [place] [address] Dr. Hardeep Rivera Glucose Ql (U) Negative Normal NEGATIVE [facility] Comment on above: Performed By: #### E RUR #### [facility] [place] Laboratory [address] [place] [address] Dr. Hardeep Rivera Hemoglobin Ql (U) Negative Normal NEGATIVE [facility] Comment on above: Performed By: #### E RUR #### [facility] [place] Laboratory [address] [place] [address] Dr. Hardeep Rivera Ketones Ql (U) Negative Normal NEGATIVE [facility] Comment on above: Performed By: #### E RUR #### [facility] [place] Laboratory [address] [place] [address] Dr. Hardeep Rivera LEUKOCYTES Negative Normal NEGATIVE [facility] Comment on above: Performed By: #### E RUR #### [facility] [place] Laboratory [address] [place] [address] Dr. Hardeep Rivera Nitrite Ql (U) Negative Normal NEGATIVE [facility] Comment on above: Performed By: #### E RUR #### [facility] [place] Laboratory [address] [place] [address] Dr. Hardeep Rivera pH (U) 7.0 [pH] Normal 5-9 [facility] [place] Comment on above: Performed By: #### E RUR #### [facility] [place] Laboratory [address] [place] [address] Dr. Hardeep Rivera SPEC GRAVITY <=1.005 Abnormal 1.005-<=1.02 5 [facility] Comment on above: Performed By: #### E RUR #### [facility] [place] Laboratory [address] [place] [address] [address] Hardeep Rivera UA PROTEIN Negative Normal NEGATIVE/ TRACE The [facility] [place] Comment on above: Performed By: #### E RUR #### [facility] [place] Laboratory [address] [place] [address] [address] Hardeep Rivera UR MICRO IND NOT INDICATED Normal [facility] Comment on above: Performed By: #### E RUR #### [facility] [place] Laboratory [address] [place] [address] [address] Hardeep Rivera Urobilinogen Qn (U) 0.2 {Kevon'U}/dL Normal 0.2 - 1. 0 The [facility] [place] Comment on above: Performed By: #### E RUR #### [facility] [place] Laboratory [address] [place] [address] [address] Hardeep Rivera LIPASEon 08-04-2022 Lipase [Catalytic activity/Vol] 1486.0 U/L Critically high 73.0-393.0 [facility] Comment on above: Performed By: #### C MP, LIPA, BRITTNEY ####[facility] [place] [address] [place] [address]DrLaura Rivera PROF 14(COMP METB)on 022 Albumin [Mass/Vol] 3.6 g/dL Normal 3.4-5.0 [facility] Comment on above: Performed By: #### C MP, LIPA, BRITTNEY ####[facility] [place] [address]pe[address] [place] [address]DrLuara Rivera Albumin/Globulin [Mass ratio] 1.3 {ratio} Normal [facility] [place] Comment on above: Performed By: #### C MP, LIPA, BRITTNEY ####[facility] [place] [address] [place] [address]DrLaura Rivera ALP [Catalytic activity/Vol] 171 U/L Critically high 46-116 [facility] [place] Comment on above: Performed By: #### C MP, LIPA, BRITTNEY ####[facility] [place] [address] [place] [address]DrLaura Rivera ALT [Catalytic activity/Vol] 35 U/L Normal 14-59 [facility] Comment on above: Performed By: #### C MP LIPA, BRITTNEY ####[facility] [place] [address] [place] [address]Dr. Hardeep Rivera Anion gap [Moles/Vol] 11.4 mmol/L Normal [facility] Comment on above: Performed By: #### C MP LIPA, BRITTNEY ####[facility] [place] [address]pb[address] [place] [address]Dr. Hardeep Rivera AST [Catalytic activity/Vol] 28 U/L Normal 15-37 [facility] Comment on above: Performed By: #### C MP LIPA, BRITTNEY ####[facility] [place] [address] [place] [address]Dr. Hardeep Rivera Bilirubin [Mass/Vol] 0.7 mg/dL Normal 0.2-1.0 [facility] Comment on above: Performed By: #### C MP LIPA, BRITTNEY ####[facility] [place] [address] [place], [place] [address]Dr. Hardeep Rivera Calcium [Mass/Vol] 8.4 mg/dL Critically low 8.5-10.1 [facility] Comment on above: Performed By: #### C ARGENIS LIPA, BRITTNEY ####[facility] [place] [address] [place], [place] [address]Dr. Hardeep Rivera Chloride [Moles/Vol] 100 mmol/L Normal 98-107 [facility] Comment on above: Performed By: #### C MP, LIPA, BRITTNEY ####[facility] [place] [address] [place], [place] [address]Dr. Hardeep Rivera CO2 [Moles/Vol] 25.6 mmol/L Normal 21.0-32.0 [facility] Comment on above: Performed By: #### C MP LIPA, BRITTNEY ####[facility] [place] [address] [place], [place] [address]Dr. Hardeep Rivera Creatinine [Mass/Vol] 1.33 mg/dL Critically high 0.55-1.02 [facility] Comment on above: Performed By: #### C MP, LIPA, BRITTNEY ####[facility] [place] [address]dfwf[address] [place] [address]Dr. Hardeep Rivera EGFR-AF SENEGALESE 47 mL/min/1.73m2 Critically low >=60 [facility] Comment on above: Performed By: #### C MP LIPA, BRITTNEY ####[facility] [place] [address] [place] [address]Dr. Hardeep Rivera EGFR-NON AF SENEGALESE 39 mL/min/1.73m2 Critically low >=60 [facility] Comment on above: Performed By: #### C MP, LIPA, BRITTNEY ####[facility] [place] [address]mh[address] [place] [address]Dr. Hardeep Rivera Globulin (S) [Mass/Vol] 2.7 g/dL Normal [facility] Comment on above: Performed By: #### C MP, LIPA, BRITTNEY ####[facility] [place] [address]vuwyy[address] [place] [address]Dr. Hardeep Rivera Glucose [Mass/Vol] 108 mg/dL Critically high 74-106 [facility] [place] [facility] Comment on above: Performed By: #### C MP, LIPA, BRITTNEY ####[facility] [place] [address]kwtdhf[address] [place] [address]Dr. Hardeep Rivera Potassium [Moles/Vol] 4.0 mmol/L Normal 3.5-5.1 [facility] Comment on above: Performed By: #### C MP, LIPA, BRITTNEY ####[facility] [place] [address] [place] [address]Dr. Hardeep Rivera Protein [Mass/Vol] 6.3 g/dL Critically low 6.4-8.2 [facility] Comment on above: Performed By: #### C MP, LIPA, BRITTNEY ####[facility] [place] [address] [place], [place] [address]Dr. Hardeep Rivera Sodium [Moles/Vol] 133 mmol/L Critically low 136-145 Th [facility] Comment on above: Performed By: #### C MP, LIPA, BRITTNEY ####[facility] [place] [address] [place] [address]Dr. Hardeep Rivera Urea nitrogen [Mass/Vol] 23.0 mg/dL Critically high 7.0-18.0 [facility] Comment on above: Performed By: #### C ABAD MORE AMY ####[facility] [place] [address] [place] [address]Dr. Hardeep Rivera Urea nitrogen/Creatinine [Mass ratio] 17.3 mg/mg Normal [facility] Comment on above: Performed By: #### C ABAD MORE AMY ####[facility] [place] [address] [place] [address]Dr. Hardeep Rivera Pre-Certification Formon Pre-Certification Form [id number] #1.00CD:127 Normal [facility] BOX TEST SENT OUTon 08-02-20 22 SENT TO REF LAB 08/02/2022 Normal [facility] Comment on above: Performed By: #### Deedee PINON #### [facility] [place] Laboratory [address] [place] [address] Dr. Hardeep Rivera CBC AUTO DIFFon 08-02-2022 BASO # 0.0 103/ul Normal 0.0-0.1 [facility] Comment on above: Performed By: #### RANDALL OLSON #### [facility] [place] Laboratory [address] [place] [address] Dr. Hardeep Rivera Basophils/100 WBC (Bld) 0.3 % Normal 0.2-2.0 [facility] Comment on above: Performed By: #### RANDALL OLSON #### [facility] [place] [facility] [address] [place] [address] Dr. Hardeep Rivera EO # 0.1 103/ul Normal 0.0-0.7 [facility] Comment on above: Performed By: #### RANDALL OLSON #### [facility] [place] [facility] [address] [place] [address] Dr. Hardeep Rivera Eosinophils/100 WBC (Bld) 1.4 % Normal 0.9-7.0 [facility] Comment on above: Performed By: #### RANDALL OLSON #### [facility] [place] [facility] [address] [place] [address] Dr. Hardeep Rivera Erythrocyte distribution width (RBC) [Ratio] 12.2 % Normal 11.0-15.0 [facility] Comment on above: Performed By: #### Deedee PINON UMICRO #### [facility] [place] [facility] [address] [place] [address] Dr. Hardeep Rivera Hematocrit (Bld) [Volume fraction] 41.2 % Normal 36.0-48.0 [facility] Comment on above: Performed By: #### Deedee PINON, UMICRO #### [facility] [place] [facility] [address] [place] [address] Dr. Hardeep Rivera Hemoglobin (Bld) [Mass/Vol] 13.6 g/dL Normal 12.0-16.0 [facility] Comment on above: Performed By: #### Deedee PINON UMICRO #### [facility] [place] [facility] [address] [place] [address] Dr. Hardeep Rivera IG # 0.02 10e3/ul Normal 0.00-0.03 [facility] Comment on above: Performed By: #### Deedee PINON UMICRO #### [facility] [place] [facility] [address] [place] [address] Dr. Hardeep Rivera IG % 0.3 % Normal 0.0-0.5 [facility] Comment on above: Performed By: #### Deedee PINON, UMICRO #### [facility] [place] [facility] [address] [place] [address] Dr. Hardeep Rivera LYMPH # 0.6 103/ul Critically low 1.2-3.8 [facility] Comment on above: Performed By: #### Deedee PINON UMICRO #### [facility] [place] [facility] [address] [place] [address] Dr. Hardeep Rivera Lymphocytes/100 WBC (Bld) 8.9 % Critically low 20.5-60.0 [facility] Comment on above: Performed By: #### Deedee PINON, UMICRO #### [facility] [place] [facility] [address] [place] [address] Dr. Hardeep Rivera MANUAL DIFF REQ NO Normal [facility] Comment on above: Performed By: #### HARI OLSONRO #### [facility] [place] [facility] [address] [place] [address] Dr. Hardeep Rivera MCH (RBC) [Entitic mass] 29.6 pg Normal 26.7-34.0 [facility] Comment on above: Performed By: #### HARI OLSONRO #### [facility] [place] Laboratory [address] [place] [address] Dr. Hardeep Rivera MCHC (RBC) [Mass/Vol] 33.0 g/dL Normal 29.9-35.2 [facility] [place] Comment on above: Performed By: #### HARI OLSONRO #### [facility] [place] [facility] [address] [place] [address] Dr. Hardeep Rivera MCV (RBC) [Entitic vol] 89.8 fL Normal 81.0-99.0 [facility] [place] Comment on above: Performed By: #### HARI OLSONRO #### [facility] [place] Laboratory [address] [place] [address] Dr. Hardeep Rivera MONO # 0.7 103/ul Normal 0.3-0.8 [facility] [place] Comment on above: Performed By: #### HARI OLSONRO #### [facility] [place] [facility] [address] [place] [address] Dr. Hardeep Rivera Monocytes/100 WBC (Bld) 11.6 % Normal 1.7-12.0 [facility] [place] Comment on above: Performed By: #### HARI OLSONRO #### [facility] [place] Laboratory [address] [place] [address] Dr. Hardeep Rivera NEUT # 5.0 103/ul Normal 1.4-6.5 [facility] [place] Comment on above: Performed By: #### HARI OLSONRO #### [facility] [place] [facility] [address] [place] [address] Dr. Hardeep Rivera Neutrophils/100 WBC (Bld) 77.5 % Critically high 43.0-75.0 [facility] [place] Comment on above: Performed By: #### HARI OLSONRO #### [facility] [place] Laboratory [address] [place] [address] [address] Hardeep Rivera Platelet mean volume (Bld) [Entitic vol] 9.4 fL Critically low 9.5-13.5 [facility] Comment on above: Performed By: #### Deedee PINON, UMICRO #### [facility] [place] Laboratory [address] [place] [id number] Hardeep Rivera PLT 200 103/ul Normal 150-450 [facility] [place] Comment on above: Performed By: #### Deedee PINON, UMICRO #### [facility] [place] Laboratory [address] [place] [address] [address] Hardeep Rivera RBC 4.59 106/ul Normal 4.20-5.40 [facility] [place] Comment on above: Performed By: #### Deedee PINON, UMICRO #### [facility] [place] [facility] [address] [place] [address] [address] Hardeep Rivera WBC 6.4 103/ul Normal 4.0-11.0 [facility] [place] Comment on above: Performed By: #### Deedee PINON, UMICRO #### [facility] [place] [facility] [address] [place] [address] [address] Hardeep Clark 08-02-2022 CNPN Telephone (JULIAN CONNELLY MAI) SYLVIA HERRERA ([id number]) 1945 F Date Time Provider Department 08/02/22 LOIDA MATHIAS [facility] During your visit today, we recorded the following information about you: Linden Faustina 08/02/2022 1:42 PM Signed Patient had labs drawn 08/02/22, uploaded to scanned docs. Loida Mathias APRN.ENRICHMENT DIRECTOR 08/07/2022 10:27 AM Signed Received outside labs drawn 08/02 -- FK 4.7 Cr 1.4 BUN 21 K 3.9 FBS 119 WBC 6400 Hgb 13.6 Hct 41 Plts 200 My chart message sent to patient. Advised no changes. Asked that she keep us posted re: if she will be transferring her care. Loida Mathias APRN.ENRICHMENT DIRECTOR August 07, 2022 10:27 AM Allergies As [...] mg by mouth three times daily. - ihsxny-hqwahtmy-cmudg se (CREON) 24,000-76,000 -120,000 unit cpDR Take [...] Status:Closed by LINDEN WEEMS on 08/02/22 Normal [facility] PROF CHEM 8 (BAS METB)on Anion gap [Moles/Vol] 12.2 mmol/L Normal [facility] Comment on above: Performed By: #### RANDALL OLSON #### [facility] [place] [facility] [address] [place] [address] [address] Hardeep Rivera Calcium [Mass/Vol] 8.6 mg/dL Normal 8.5-10.1 [facility] Comment on above: Performed By: #### RANDALL OLSON #### [facility] [place] [facility] [address] [place] [address] [address] Hardeep Rivera Chloride [Moles/Vol] 98 mmol/L Normal 98-107 [facility] Comment on above: Performed By: #### RANDALL OLSON #### [facility] [place] [facility] [address] [place] [address] [address] Hardeep Rivera CO2 [Moles/Vol] 27.7 mmol/L Normal 21.0-32.0 [facility] Comment on above: Performed By: #### Deedee PINON UMICRO #### [facility] [place] [facility] [address] [place] [address] [address] Hardeep Rivera Creatinine [Mass/Vol] 1.42 mg/dL Critically high 0.55-1.02 [facility] Comment on above: Performed By: #### E KATHRIN, UMICRO #### [facility] [place] Laboratory [address] [place] [address] [address] Hardeep Rivera EGFR-AF SENEGALESE 43 mL/min/1.73m2 Critically low >=60 [facility] Comment on above: Performed By: #### Deedee PINON UMICRO #### [facility] [place] Laboratory [address] [place] [address] Dr. Hardeep Rivera EGFR-NON AF SENEGALESE 36 mL/min/1.73m2 Critically low >=60 [facility] Comment on above: Performed By: #### Deedee PINON UMICRO #### [facility] [place] [facility] [address] [place] [address] [address] Hardeep Rivera Glucose [Mass/Vol] 119 mg/dL Critically high 74-106 T [facility] Comment on above: Performed By: #### Deedee PINON, UMICRO #### [facility] [place] [facility] [address] [place] [address] [address] Haredep Rivera Potassium [Moles/Vol] 3.9 mmol/L Normal 3.5-5.1 [facility] Comment on above: Performed By: #### Deedee PINON, UMICRO #### [facility] [place] Laboratory [address] [place] [address] [address] Hardeep Rivera Sodium [Moles/Vol] 134 mmol/L Critically low 136-145 Th [facility] Comment on above: Performed By: #### Deedee PINON, UMICRO #### [facility] [place] [facility] [address] [place] [address] [address] Hardeep Rivera Urea nitrogen [Mass/Vol] 21.0 mg/dL Critically high 7.0-18.0 [facility] Comment on above: Performed By: #### RANDALL OLSON #### [facility] [place] [facility] [address] [place], [place] [address] Dr. Hardeep Rivera Urea nitrogen/Creatinine [Mass ratio] 14.8 mg/mg Normal [facility] Comment on above: Performed By: #### RANDALL OLSON #### [facility] [place] [facility] [address] [place], [place] [address] Dr[address] Hardeep Rivera Tacrolimus Bld-ncon 2021 Tacrolimus (Bld) [Mass/Vol] 4.7 ng/mL Low 5.0-20.0 [facility] Comment on above: Order Comment: Speci men [...] Test performed by chemiluminescent immunoassay using [employer] Specialist. Performed By: #### 1 1253-2 ####[facility] LABCLIA [id number] [place] [address] [place] Giardia, Direct, EIAon 07-23 G. lamblia Ag IA Ql (Stl) Negative Invalid Interpretation Code Negative [facility] Comment on above: Result Comment: Perf ormed at: [facility] [address] [id number] PhD Sommer Davis Performed By: #### 4 [id number], [id number], [id number], [id number] ####[facility] [address] [place] [address] O & P EXAM, ROUTINE, REFLEXo n 08-22-2022 Ova and parasites identified Concentration Nom (Stl) Comment Invalid Interpretation Code [facility] Comment on above: Result Comment: No o va, cysts, or parasites seen. One negative specimen does not rule out the possibility of a parasitic infection. Performed at: [address] [id number] PhD Sommer Davis Performed By: #### 4 [id number], [id number], [id number] ####[facility] [address] [place] [address] O & P Exam, Routineon 2021 Ova and parasites identified LM Nom (Unsp spec) Final report Invalid Interpretation Code [facility] Comment on above: Result Comment: Thes e results were obtained using wet preparation(s) and trichrome stained smear. This test does not include testing for Cryptosporidium parvum, Cyclospora, or Microsporidia. Performed at: [address] [id number] [id number] PhD Sommer Davis Performed By: #### 4 [id number], [id number] ####[id number] [place] [address] Consent for Procedure/Surger yon 07-19-2022 Consent for Procedure/Surgery [id number] Normal [facility] CMV IgMon 07-18-2022 CMV IgM IA Qn <30.0 Invalid Interpretation Code 0.0-29.9 [facility] Comment on above: Result Comment: Nega tive <30.0 Equivocal 30.0 - 34.9 Positive >34.9 A positive result is generally indicative of acute infection, reactivation or persistent IgM production. Performed at: [address] [id number] [id number] PhD Sommer Dvais Performed By: #### 1 [id number] ####[facility] [address] [place] [address] Coding Summary.on 07-18-2022 Coding Summary. CD:[id number]:[id number] G h0bWw+PGhlYWQ+VV6ECIE xU45wkUBecZ6UV5tNFA0L XEUBVAUCIO5RBM4gsYX8M FuoJ1TpiwUx RcrtgLUcWV63XQz4PJL6k AmmKGsueR9muSZwA0g1Gv RpZZ11wT36YLlbYHEaToZ 3LjZpbjsgbWFy P5lnXrQabCVnQag+PHRhY mxlIHdpZHRoPScxMDAlJy IjiCcvGG5kBo1eKIOiGIF vbGxhcHNlOiBj k3okHVMoBDilJM9rmEqvE 1FbiXS7WUWjf5i3En13vI I+WMWbUPE9mEyuEAota52 7HaSge8bhITB8 rUUaRByyISE1U79ut6D1S NApTZIgHYX4yYW8kH9lzF bznrzgY3XwbYBpOqE1XMX 5kEXdbU4whUwu zqwgsZ8sGej+W60MZK3KD NYOME6OWqb6P5HrFytdhG I+WE69ZWZrFC02vZFmxVS bd7ooeHo8VkUt VABtKIT5tPgzBXbsa5ZrO RCwO02ezPZec9L4XDZleA ivqOScBdKuvAS3bW6aQBs umohfz4dgzdpr Czdfz8mncs39iB86R04hW EuxJYIePID9EOQsNJAeeY lpok7oqH5wQk5+RPqpy3n no3vbrMt0UlSf RUXtvzWkcRmhFWO4s4BiZ c03O6KnkPkfn0CtGvg2fq 36lIKbv3B2xXS0AEziWTF hiV6lTQtyVvT7 FBWjHtVhaO77wTXuGXbdY r6xdSgxkRskFX4nXKRrzm myVYXosT2nZRHosZUjgKo cPV4lGHIjdsfg e218JjIyTOI3LZQwdWTpF 5OitT9qQvQmFSInDHPyA9 ZneVXqEXajZ918LMecQwS 3HIQimvYoH3Oe WLOazMjdYvH7x1G4Nv5Ke 4ZrgluhVCZ5AJsvZZK1Jj O9JlEoXpA9U4XdKui2SHM czTbkRN0yF1Uq EBNlugepsywzsXM8KUPmV HWakE41pQMvMUvpEe0ot3 U3i548GWNsRLAaeD19Gt3 udDogMTBwdCBU nA7fhadyy1qaxiulJkPzI EFvNYk6VHi2ATCdmDosRo BmQPS2JiI7HMO1fPGdkL5 mcTsyqtegxF3k Oyc+L15joJ0yZQS1VRO3h styLTUchuUvTA09FZ98P2 RyPjwvdGFibGU+PGRpdiB pcNbkWV3xMwEj x6uhn8CqOVcxJ4FvNPTwT UfuSuf1KZPrNCT0fDI7dZ 5tVRPbIFivg8Y4lBN7J2A aslApxg1rx0vf VPJnZRndH82wqVIoc8O3B OQapER9RZHdfRktDuAkyU 93Oyc+LIIzkDrbx8VpXps md3fmy5gevGz0 VsHoTEDkukHeoWxwWNI0a 7TbMs33C93kXWyaIVCvZU AiJQTiNQQbwRswmo5ssG7 wIi8+PGNvbCB3 yVE0kW8rLHKuZpY0XZrmQ 902QuZtcVAcNewkn5qny3 gznMq0YfNqNJWfmrQspNe pFSI7z0SiYf07 R89xGWrsSQCuEJRmSPUqG RLdtFgwhh4zxI1pUf0+PC 5yj6pevn21bM91kTA+PHR fKKA5yQgcXMgt YOFqaM2cIRxtOgP7FEJbP jSsmE10gNWgZTeqQy0ntB kfqRouUM8yCSYfknmut33 5AtMuh1khIVZt eQEbMPyhKMM6G70lu3E7F BEhSXWcTXS7lOJ0wT6ztN lnbjogbGVmdDsgdmVydGl gIFrjGNsuJ227 IHRvcDsnPlBhdGllbnQgT iQjAJh1F3PgJvk0EVAkqS xtIB7prXObTUntDq7qdGd gzQngWS5jXYJc yqqxn773EfEke8cvPGUfa IBiFUhxTEL1D24by3T8LG BoRFLhXIC0cES6jP6osEc nbjogbGVmdDsg mhSpaDheEKpfLVsgE445L HRvcDsnPkJpcnRoIERhdG M7IX58AX39bFJuv2V0aVX 8Y6YqYHKpjhwy nicnvEL5ZLYdJSNbpA10Z h5wmProUv4lFBRcEWN5KV YspGQsC8HepT8zKpHgHHR mZOMiL9RmcPIq YQsdH435TUorXoO5ZLJzv iBhB5VdOZXxjIrzIpJ1f3 Z7Md2KM7G9XY85II81eEX jv4U5tBH2F3Ky IMUwmwhngzqgpPK0KMDiJ TOxbE50Eh7kaRzzYy6lBC BjYGV8WUBglMMxF1GcyJ9 yOiAjMDAwMDAw R3QfnCZxVVnvV492BRukM fO7IWPwmbNiO3OqRFLcaE jqFkS4t1I8Jw8TUWk2HK3 3PG47cTEfp9N2 vYI7B9SaNOIdnvogngewc OM1XOPdIPJjhD96Of4ymH knKn4zIOIySCM2NMKbbYB oD4LeqH9kFeVc PBCeILHzF2UbyOEeMQjnZ 438KXwoPmI3SZHoxvLkK0 WsBVFnxTaqVpQ9u6L1Ky0 RSKQoFE47GPI9 jSW0LR51OA58M6WzBclzz GFibGU+PHRhYmxlIHdpZH RoPScxMDAlJyBzdHlsZT0 dNn5kQYYeFNEa mIkmeSWxAdIoi9srKIFkU UohOK4rzNowV2ErvQK6YZ Pqf5z9Ls39S67mC2UttWP +RMHbhGT6kTY3 aE2tGkErUwS8KOaxR504Z tUnlEXfHobie3qzj0vccI l2HhG6FPQelhPxsHdmYVK 0a5IsCk99W81a IHdpZHRoPSIxNSUiIHZhb Hcbub8xzJ5ySt8+PGNvbC A6lUA8zA7xJvIrAhM8XGf fD479ZcJfsHJl Edopb5ysl2rexVs8ZyKgP AEbtjXynLrrWVT3i0ClKd 16A9RviVctx2ChBbd3pp0 5rVVom0A7hSB1 S9BjQLStiijfdHJqrEsrB V4kCMYsfmecLRMkhU4aBD NpJ4w6EfJaYiR1LIdyT8V mnrP3IPTimYWd FWuaNVY1V79dt5M7ZULlV BZzSGY7zML0yN4jlElvqe ogbGVmdDsgdmVydGljYWw uITzsF224BJUr gTqjMOXscU8lHTMgkIKch FogYC1zOLAiruxxUiKBLr BZTTURQYvQJAUAWI74XN1 3hMJgl8A4fKS9 C4MnGXNwyyqsmwphuRI1N KAbNKLjjF10kURgLZhaDh 3pl2Y2u304TYGpEJQgsS6 0Nm5noVdtJUMp cOMQoM2snftuy2tcfnirA vJzPGTiRBj5GGo6YWTxjC nzHyOfPYV0NwR9FJP8cLK hhW1ndNvvmpug rK2lYig+QBUoFkZvQEh2M TwvdGQ+CJTkPUO8pNfrKP cwIJGnnW9sESXsX6b1ExU pRdD8LTqaI2Gt CTZnmhnrGp74hH8mZhRvN bL7EJtqS0AqfuS0QFHbgG EtCAhyWOM9D69ur5I7EYB zQZKkPQN9sYY9 nX8vkDenrzovjHLkhXiei yCotQtwKFsfXMrbL868MJ UiiIwtFrw0QUnuYCSqAH6 4EA86dLVah2C9 aHX5E5YcQSTgfugoykvcn RV6NEIyCXGrtH72qDNwNI jgSn2ab9B7b023FWHbOBN yqC15Lp1mmLoi LOLyaIHEfC4ucbamu1ept hxrNoPbFFKhIOg7NHv4TO VmqGlsIuQtGDR1CgC7OYY 9nBCajO6jmOtm cglqnT4nSek+RmVtYWxlP A02QP33dDVnj9N4pPH5O3 XcMTMleyvfrnqwsKE5VCP nHKXbcS42iDCb SRriHb9zx8N7o033AWNcU AQmlS47Ry1fwUdjOHQduW IGrE9uaeinc0jstupbYwH sNJYfALi1OZk8 LQNtvNjjBrDoOPP6RtE4G SA0yFYbfV1obGpyrkkxfM 9wOyc+N9V8sYG4dFWpjSg vdGQ+SG40km80 R5MiDuksIud1TGNfQFA3r QK3kK5rRFSqDUpqa7U2uW Z3X6FstcZoel8un2dgPLW wHCbmZ40puAQu y9K8AOFrlOC1MWJgnFinK uPxlP58Vfu+PGNvbGdyb3 UkRfgdj5xyu6uxvKt8MaP wJSIgdmFsaWdu QUY9q5WuFk31D12uMNjcQ HRoPSIzMCUiIHZhbGlnbj 0zcS7uXs6+QBGqaVG3pQT 5rF7rDhKhUcV0 XMdxL851SoHuaGZaMafvl 2ivp9bezVa9IuUuHATwvw GowQjuCBH3f3HdRp01M2Y hjKuwi2RpPbd2 fj73nRCtw9N5dRI1K8QwH TNegvsmcELrhSmuTA3nRJ KbpzaeVDHxaA5aNSYbP3e 7ZbPzLqN3JAqk H1XtjnW4AIXsdYAzZMIzb ERZiN2ghwono7hjqhmnBq LpLVVyIYz5OZj7EIXqlQo mNxStSSR4OjQ2 HGU5xXLxiX0arWujxazjc G9wOyc+WGb7s4dzwRWcSK 3rpAT7TZ83UG11xDGyq6D 9bZW4F0RrNGGp kaeopmejnOS0GCVrOKNni J38Fy7blWxjNl3zDVGqUM F3CHDlkRPxO3AugF2aFlX aJCFuCWAyL2Ug kNJrCJbdB697FUqvNgI5U ZUqnePzK1XbJKEjoCzuRa X8s3J6Ec2FJD94EV97VW2 1pFJep9C5wPW5 B3YvWHUestjwhnjjmNL9F BEaBXEuhW63Vv9ejKmbJd 9oJANfHKP3UZMqlGWsK1D upL9oVgSnKVVf LIFeN8MgwVYhZNfzL899H SfnPbF9DRAgtpIrO7PwDZ RlgErdZmW0b4J1Xs4VXs5 9VO87EM08aIKs x0V2lET5V6LaWOLexpqul jseeCG5ZOAvHBWjiD03Mb 5tgQzpKs8aPQXnUUT9JFU pdLSsO0NodX7m JjCoIIVdZDGpJ4NquWVcE WioZ483IUbzAsV5AWMbde BrG1HjOHWhtDupBjD4w2Q 6To2PWZqzlqn0 M0LlAwpxdMH+PM68ZBVlU F78oQYrvAPmz9mkxYy8Qi PpJDTcPTY8lKlsTEzwz2G dJUPtK28gxLSp c2U6 (more content not included)... [facility] Coding Summary. CD:[id number]:[id number] G h0bWw+PGhlYWQ+JN8ROZD gC33utKCywQ8QR1rLMQ6D WUAELNNUNY1BWT5nhRJ4E XtyF4UdixGw IlgseMUzJW91PXs5LPM2m YmcPXjuwL9cyMNbD0n0Vh UnLX73zF18LItxISJfPtI 3LjZpbjsgbWFy A2nxNwMaaTAwDjy+PHRhY mxlIHdpZHRoPScxMDAlJy SdkSgjUH5qNw4mMAHnYWL vbGxhcHNlOiBj p6yvSEEuJZxiRP0myBbeX 8WycKT4VLTkc1u8Eh12eG I+GRKiRCJ1rMfjKXhsx45 8CvIsk8qeYOF8 nKPjHOqcRUY0K89az7U6L WVjMNXnYET9kGF8aK2pyB mrapqlC8QduHNiApZ1IKZ 5uJNpcZ9bxUgb frqfnX2yHds+X50QWE6SA DQBRI9FVai9O0OeLrmbwK I+DR26BJKjAK55gAVfaWF sm3yyjRr2GsYi SCSvNNW9vSpcPImsa3YlP ZChM26zsEEki2P1AJGugO knyARzGvKdgBC6fZ2sVGh fceape1dneeen Lcqgl0duhs16xM81Q06lG VoxXBDeZCD1JLEiQPYesY wtxy3fiO0zJa0+FPras6d ni7cbnIl3YxTo BFFzvqVixGbtCHP2g6TsJ n93S4ZgnRmfj3LrRam7of 62rPDxe2Q2kEB4JAeoNPK hmS4yKOmuQnS8 EKYxDoJpmP57jMTcSVdwT f8kgNqtsExfEL9hGKRjbr ejAFOdgS1fJCZawCVnnKh iFF8jIKDqqiwp h063PkSnZLA7TKVauXUqR 9RsfX7zWgNkVFKqJSIwJ5 IonJSlUXabA579KIkaCaQ 3GEMymfHpM8Pk YUXcdJevHnD2a4R1Vy9Rt 4CfewnqYCJ7INoxNEA0Sr V6CsFzMfU7J4NwLgv3COI fnSwuHN6hD7Vh TSTaaefalqjryWE5VTEkB VTlzV09eCIsUEelVh2tk8 O5q990EZKqRTMuuD86Gj0 udDogMTBwdCBU sX7kyfbja9npbdveDiWsU LMgTIs4QEn3FPHmtNngZj KfBUG1UmJ9UFZ4kMZosX2 yuQejcnkqaL1t Oyc+H03fmP1kADC6VWF6d nlvAQSurdGyXM67RQ10L3 RyPjwvdGFibGU+PGRpdiB dsDtfLD2bMfBd l7cyy1VfDLexX1QzYOAcF CrsDsn0OFZnTJA0uHY0xB 4nXHBfKXwin7X1uZV7R3Z sbiMjtu3uq2sx BTJzURseP59ffGWfk8R1W OOhnUT3IFNixSbdBdZvcO 93Oyc+QAQljVtya0BzPhf ab0bbh1npsRz1 TzQeJSBsnyPibIntIMJ5x 2HmGy70V43cPDhrKSAvYY SzIUTqMFVuuQybub1fxW2 wIi8+PGNvbCB3 xRW1pQ9iWLWjBjX1CPecB 122VqPliQDmUeljv0nhm3 ganUk8ApJpODIcokQpnEb wWCI1m6MyQh34 D52sVBajCVYjWUXkVGWfE KTleDekcq6zuD6yEi2+PC 8ko4uusd64fJ07kTX+PHR iOLU0iVdpLUxu JVIqbN5vDMazSuO9IOSqP eXqgE28dFBjPSvjOk3kdY fvqYvsFT5tHBYrxcfvb92 4ZjWwo5aeNPKe uPNkLXoyCVK2Y57kd7B0K NJoIAVsJLR5bHG7rU6lgW lnbjogbGVmdDsgdmVydGl cSVlkIFhtS497 IHRvcDsnPlBhdGllbnQgT vRdDRk6I9XgOoa8RQXwiT dhYC5djOPcBKauLf8lqZz pxCrnSJ0tVWMc mybxa278GnGoe4ylHOHsp XGkKBhcDQG8Y10ur7J5UK RjZPQyAHT6pUV6cO7azDf nbjogbGVmdDsg zvXacTsdBPcsCTdvI931Q HRvcDsnPkJpcnRoIERhdG U3NM59PV05tSFxk5U4aPR 6V3OoGIGnquzy xgpllCW9JUZnAVOikG22H u9mjHiiTv0vRQMwLXB7RD IvqFJjX5SeeV3pOzAeURF oTZFnY5NuqRQg RFrfL349LRbvJiH9SFSpy iFqX5QvUAXkpBwlPcG6b4 O7Tw8JI8K6YB02AJ80gAF mc4Y7rWS7Y8Ds VOBdgrzpbtzsdPJ7SDCuV DHwmQ25Ew6jiWonUk8oAB TwXZP7UEBntFXsC1KdiF1 yOiAjMDAwMDAw A3JrjLEhZEhuF059HIskJ rX8OADftpTkD4PvGERmfU aoIeC9h3D5Ze6FBNo2HW9 4KZ27uYMzu3N9 iLF0D1OaENFzywcasynsu YU5SHQkZAVlcJ78Sx8uqK bjPl2lFWAaAYV9EKWrqSE dQ5ZdbN4iYwVd VTNjOEEeW7HnaNDuCEutK 525COaeDkT1WDTnmiAiD9 CaYENgzFksFmQ9y2B9Hu4 XMILeCO65FLN0 vUZ7TA35QH37S5PgCapze GFibGU+PHRhYmxlIHdpZH RoPScxMDAlJyBzdHlsZT0 vLn5rAFBwCUTc aDpdvOZmBmCmm8vuVNUqQ LhwOO7cjTnsK8SaqPD9UO Tgi0n7Vj40W07hQ8KvbJY +QHTprSM5pUU8 aI3dYsKcFqL1IQoqI698Y tEmcVEqGnalt4ulm0txcS p5EvE9JDBrshXifYhdDGK 0g7AnVb00X47y IHdpZHRoPSIxNSUiIHZhb Ttwmz3uqK3rPq3+PGNvbC C7lUS1gM1qMdQtGtV1RJj sP235XjCknEVh Cuxcw2bcm5domCd8WgAcB GUeujTlwWyuWIX9t3InPt 65L2PlhPuok3ZuJmf2pt9 6oESrf8Z7gTE5 T1VyDASwnwjupQEceNwdC S6wWWUicxauQBBuwO9yET EzB5w5BuDfNjN1ZJceI0K lhhI9KLJpvGWc XFhxXBJ0P85sc2G0SFGgK BSrHVN5oWV6qQ9ssEnchm ogbGVmdDsgdmVydGljYWw sZDlnF437UCSn mKynJGVcsZ9eZEXxaURks PxvJW7wKEAlzjhkBcWJLv DPLKTUSRiAWUHIJD01MV0 7sMEmu2Y8xKA2 W6ZwYWHxxwwdvlynzGK3F FBbYWHlaE23aATbESbrIp 6pe9U3u167YYQtLBZarA0 1Cv7ziOuiXSTr vWNOoV1fwznzw1gsqbzcX gEzRFTiXMy0WTz0MWXlwG qjPtTrAVP0QfK8BNZ9mCO pwF0lsJntsdrq gA1mSrs+MYHeJjIqNRr0W TwvdGQ+VRMjMKG8dQuiBY xjKIDfrM3uAPWsJ7h9RcN oMpC9QCwlC0Nd CFSqqizxSv16cY5zUfKqF mK2IIbaT7MbnrA2CNKbzY ZtOEogIMC3Q59ph3S6DGL eTACkTLN9jOH3 nA4zaJqqlmjonJUahMwfd iQvlFmtCUorYPteM221PZ ZepGgdYyo5DWxrBPSyTR2 5KL67mWMxi9S2 xXV0S7IkCZSvizcppxyvj SZ2MFUmXADbxY92sQRhFO usSl2vx3U2w991EXMcLHU mvC90Hq2lpQyj CQLjgUEMlN0ctozrp4aha muoDzCqSPYsHKu0MYj4TX ZleIyrBzZePIJ3JiX9VFI 7oOPjwK7bgMwr feknaF4qWuc+RmVtYWxlP T74HS22eZZyg9V0ePN4C6 EsGACramdevxbkeTJ8IGH mFIEveH65sBMp KNbsGe2gk1J6n768NRVjP YZyfI22Qf1vpDolRIKrfS SNbW7gwchtx4ncyrkcHaF iQJItHTg7LDl9 EBOiaQqoCxXiIGV3WzN3I KT6gNQdsE7hiLdmahykeC 9wOyc+ATImCRZpl9Nzb2D iWY38FZ44A6Ka PjwvdGFibGU+PHRhYmxlI HdpZHRoPScxMDAlJyBzdH yuLB6jTo6rONXkAMAreDy pjESiUoKil4qe BVDzROdzDA9qnHqiX1Ddt YI8RFPfm8l1Lm99Y27oX9 JvdXA+VLXlpAJ5rOH3wE4 nAjDnVfQ0MQsy O472ZiVpiALyDbsqk1fuu 5jbjZy9FgAwEKYtzzLjaC tdGEG7c1AaWk33U36wHLw pZHRoPSIyMCUi SVDkgXnefm7vgY0sVy3+P FOqlLQ1mBC0pD8rYmNwDi T8BBnlY982ZuWhzDNvSrj vV66kG4OoaGM+ NIOcUwh9QPBudPaeFW6ha PCfYFzhLd4cGEM4PqSrKl ElXYksD6CpWRWefvikbul xiDZ3WGNkDAMj jL31Yc4txWkzCa4fMNJxN NN8MQRliRRcX2VamD5aEd GmINWjNASuJ3XugIUoQMs iS088ZLzhRkZ7 VFCbumMkG0CmLBSlgPhxR pL2t6F3Ze7JdExbkGZqQW 1vZyDvHMd1L3IjTxv4BPE rpLycFS7mwKVq QBojSo1yeRfmpBwxAL0aG CJpquifs449CzUih3tqBG OqzDChXQdkAWP2A88rh8V 7BJXdAWFwVLA6 cME7bE2txRuedlejdHOam DsgdmVydGljYWwtYWxpZ2 06QRDydScgZhPBXre1Q1W gYgd3WXPucOln FI6rtDRyJCjxJk2upEndw ZdxJY9zTLZocptii844Hh Ysv4jbLEQygPGsFQbsLNL 1I57zo3F4XVSr MAOkGKN9bHO4kB8vkFofo jogbGVmdDsgdmVydGljYW irJWgwW045UKWpeIcyPs6 NUep8K5YyFto2 KVUfmMseTE6rfXGoOOezE y6ezPbnaBhqTM6xRJLpnd qyd800PkFyt2gzUKEhiCS cTRmaPOK4M80w n0G1KEWyOPCoQCJ5mJY8l E4khOzbewyrzHOcbHljed TftQzbMOamRBxqK157LNV vcDsnPlBheWVy OjwvdGQ+QS47dv90Q7CkR yfhTqc7YVZxBOD4aMR5lN 3iWDWmFZepb6T1hBK1E6R gnvOudw7cc0nt YXBz (more content not included)... Normal [facility] Enteric Panel by PCRon 07-18 C. coli+jejuni+upsaliensi s DNA ULICES+non-probe Ql (Stl) Not detected Normal [facility] Comment on above: Result Comment: Test ing was performed utilizing reverse organic gardening teacher (RT), polymerase chain reaction (PCR), and array [...] nulcleic acid test. Performed By: #### 4 [id number], [id number], [id number], [id number], [id number], [id number] ####[facility] [address] [place] [address] E. coli stx1+stx2 genes ULICES+non-probe Ql (Stl) Negative Normal [facility] Comment on above: Performed By: #### 4 [id number], [id number], [id number], [id number], [id number], [id number] ####[facility] [address] [place] [address] Enteric Panel by PCR Negative Normal [facility] Enteric Panel Intrl QC Pass Normal Fi [facility] Comment on above: Result Comment: Test ing was performed utilizing reverse organic gardening teacher (RT), polymerase chain reaction (PCR), and array [...] 1 and 2. Performed By: #### 4 [id number], [id number], [id number], [id number], [id number] ####[facility] [address] [place] [address] Norovirus genogroup I+II RNA ULICES+non-probe Ql (Stl) Detected Abnormal [facility] Comment on above: Result Comment: Resu lts Called To [facility] for Dr. Jama By [facility] And Read Back For Confirmation On 07/18/2022 08:49:23 EDT. Performed By: #### 4 [id number], [id number], [id number], [id number], [id number], [id number] ####[facility] [address] [place] [address] Rotavirus A RNA ULICES+non-probe Ql (Stl) Not detected Normal [facility] Comment on above: Performed By: #### 4 [id number], [id number], [id number], [id number], [id number] ####[facility] [address] [place] [address] S. enterica+bongori DNA ULICES+non-probe Ql (Stl) Not detected Normal [facility] Comment on above: Result Comment: This test result should be correlated with clinical presentations and medical history by a healthcare provider to determine its clinical significance. Performed By: #### 4 [id number], [id number], [id number], [id number], [id number], [id number] ####[facility] [address] [place] [address] Shigella species+EIEC invasion plasmid antigen H ipaH gene ULICES+non-probe Ql (Stl) Not detected Normal [facility] Comment on above: Performed By: #### 4 [id number], [id number], [id number], [id number], [id number], [id number] ####[facility] [address] [place] [address] V. cholerae+parahaemolyti cus+vulnificus DNA ULICES+non-probe Ql (Stl) Not detected Normal [facility] Comment on above: Performed By: #### 4 [id number], [id number], [id number], [id number], [id number], [id number] ####[facility] [address] [place] [address] Y. enterocolitica DNA ULICES+non-probe Ql (Stl) Not detected Normal [facility] Comment on above: Performed By: #### 4 [id number], [id number], [id number], [id number], [id number], [id number] ####[facility] [address] [place] [address] C. diff by PCRon 07-17-2022 Clostridium difficile by PCR see comment Invalid Interpretation Code [facility] Comment on above: Result Comment: Unab le [...] its clinical significance. Performed By: #### 4 [id number], [id number], [id number], [id number], [id number], [id number] ####[facility] [address] [place] [address] Fecal WBC Lactoferrinon 07-02 Fecal WBC Lactoferrin Positive Abnormal Negative Fis [facility] Comment on above: Result Comment: The semi-quantitative detection of elevated levels of fecal lactoferrin is a marker for fecal leukocytes and an indication of intestinal inflammation. Performed By: #### 4 [id number], [id number], [id number], [id number], [id number], [id number] ####[facility] [address] [place] [address] Consent for Treatmenton 07-02 Consent for Treatment [id number]:127 Normal [facility] Gastroenterology Office/Clin ic Noteon 07-15-2022 Gastroenterology Office/Clinic Note Chief Complaint f/u ER- abd pain, diarrhea and vomiting HPI Staff This is a 76 year old female who presents today for a referral by Sue for abnormal radiology testing. Patient seen in [place] ER 01/2022 for complaints of diarrhea, abdominal pain and nausea.- CT and labs completed History of Present Illness Sylvia presents today for abdominal pain, diarrhea, and vomiting. She was recently seen in the [place] emergency room with abdominal pain, diarrhea, and vomiting. She notes that she had a heart transplant in [place] in 2017. Afterwards she experienced diarrhea which [...] She was prescribed Creon 24 mg at [facility] in 2017, due to being diagnosed [...] patient had a recent CT scan at [facility] that showed a small lesion in the [...] by h (more content not included)... Normal [facility] Comment on above: Result Comment: Elec tronically Signed By: Giovanna Cuellar\.br\Date and Time Signed: 07/12/22 13:57 EDT\.br\Electronically Co-Signed By: RITO MCDANIELS, Eddie\.br\Date and Time Co-Signed: 07/15/22 21:14 EDT Ambulatory Visit Summaryon 0 07-12-2022 Ambulatory Visit Summary SYLVIA HERRERA :1945 Visit Date:07/12/2022 Ambulatory Visit Instructions Your Diagnosis Chronic diarrhea LUQ pain Nausea and vomiting Pancreatic insufficiency Hx of heart transplant Pancreatic lesion Your Care Team Attending Physician - Eddie JAMA MD Primary Care Physician - SCOT ROGERS CNP Referring Physician - SCOT ROGERS CNP This Is Your Medications List [...] Pancreatic insufficiency Pancreatic lesion Valvular heart disease [facility] 07-05[facility] SYLVIA HERRERA ([id number]) 1945 F Date Time Provider Department 07/05/22 SHO CROWLEY [facility] During your visit today, we recorded the following information about you: Sho Crowley APRN.ENRICHMENT DIRECTOR 07/05/2022 10:48 AM Signed 07/03/22 labs: FK: [...] has established care with another team. Sho Dmitriy MONTANO CNP Pager: [phone] July 05, 2022 10:42 AM Post Heart [...] transplant. No Dr Caldera: Rfl: TACROLIMUS/[id number] BL [[id number]] Order #: [id number] FUTURE Prescriptions as of 07/05/2022 - tacrolimus [...] mg by mouth three times daily. - fkvjrw-xeqvcqod-dsdxz se (CREON) 24,000-76,000 -120,000 unit cpDR Take [...] 09/02/2019 A (more content not included)... Normal [facility] Rojas BOX TEST SENT OUTon 07-03-20 SENT TO REF LAB 07/03/2022 Normal [facility] Comment on above: Performed By: #### RANDALL OLSON #### [facility] [address] [place] [address] Dr. Hardeep Rivera CBC AUTO DIFFon 07-03-2022 BASO # 0.0 103/ul Normal 0.0-0.1 [facility] Comment on above: Performed By: #### C BC #### [facility] [address] [place] [address] Dr. Hardeep Rivera Basophils/100 WBC (Bld) 0.3 % Normal 0.2-2.0 [facility] Comment on above: Performed By: #### C BC #### [facility] [address] [place] [address] Dr. Hardeep Rivera EO # 0.1 103/ul Normal 0.0-0.7 [facility] Comment on above: Performed By: #### C BC #### [facility] [address] [place] [address] Dr. Hardeep Rivera Eosinophils/100 WBC (Bld) 0.9 % Normal 0.9-7.0 [facility] Comment on above: Performed By: #### C BC #### [facility] [address] [place] [address] Dr. Hardeep Rivera Erythrocyte distribution width (RBC) [Ratio] 12.2 % Normal 11.0-15.0 [facility] Comment on above: Performed By: #### C BC #### [facility] [address] [place] [address] Dr. Hardeep Rivera Hematocrit (Bld) [Volume fraction] 42.3 % Normal 36.0-48.0 [facility] Comment on above: Performed By: #### C BC #### [facility] [address] [place] [address] Dr. Hardeep Rivera Hemoglobin (Bld) [Mass/Vol] 14.0 g/dL Normal 12.0-16.0 [facility] Comment on above: Performed By: #### C BC #### [facility] [address] [place] [address] Dr. Hardeep Rivera IG # 0.04 10e3/ul Critically high 0.00-0.03 [facility] Comment on above: Performed By: #### C BC #### [facility] [address] [place] [address] Dr. Hardeep Rivera IG % 0.5 % Normal 0.0-0.5 [facility] Comment on above: Performed By: #### C BC #### [facility] [address] [place] [address] Dr. Hardeep Rivera LYMPH # 0.8 103/ul Critically low 1.2-3.8 [facility] Comment on above: Performed By: #### C BC #### [facility] [address] [place] [address] Dr. Hardeep Rivera Lymphocytes/100 WBC (Bld) 10.9 % Critically low 20.5-60.0 [facility] Comment on above: Performed By: #### C BC #### [facility] [address] [place] [address] Dr. Hardeep Rivera MANUAL DIFF REQ NO Normal [facility] Comment on above: Performed By: #### C BC #### [facility] [address] [place] [address] Dr. Hardeep Rivera MCH (RBC) [Entitic mass] 29.7 pg Normal 26.7-34.0 [facility] Comment on above: Performed By: #### C BC #### [facility] [address] [place] [address] Dr. Hardeep Rivera MCHC (RBC) [Mass/Vol] 33.1 g/dL Normal 29.9-35.2 [facility] Comment on above: Performed By: #### C BC #### [facility] [address] [place] [address] Dr. Hardeep Rivera MCV (RBC) [Entitic vol] 89.8 fL Normal 81.0-99.0 [facility] Comment on above: Performed By: #### C BC #### [facility] [address] [place] [address] Dr. Hardeep Rivera MONO # 0.9 103/ul Critically high 0.3-0.8 [facility] Comment on above: Performed By: #### C BC #### [facility] [address] [place] [address] Dr. Hardeep Rivera Monocytes/100 WBC (Bld) 11.1 % Normal 1.7-12.0 [facility] Comment on above: Performed By: #### C BC #### [facility] [address] [place] [address] Dr. Hardeep Rivera NEUT # 5.8 103/ul Normal 1.4-6.5 [facility] Comment on above: Performed By: #### C BC #### [facility] [address] [place] [address] Dr. Hardeep Rivera Neutrophils/100 WBC (Bld) 76.3 % Critically high 43.0-75.0 [facility] Comment on above: Performed By: #### C BC #### [facility] [address] [address] [address] Hardeep Rivera Platelet mean volume (Bld) [Entitic vol] 9.5 fL Normal 9.5-13.5 [facility] Comment on above: Performed By: #### C BC #### [facility] [address] [place] [address] Dr. Hardeep Rivera PLT 191 103/ul Normal 150-450 [facility] Comment on above: Performed By: #### C BC #### [facility] [address] [address] [address] Hardeep Rivera RBC 4.71 106/ul Normal 4.20-5.40 [facility] Comment on above: Performed By: #### C BC #### [facility] [address] [place] [address] Dr. Hardeep Rivera WBC 7.6 103/ul Normal 4.0-11.0 [facility] [facility] Comment on above: Performed By: #### C BC #### [facility] [address] [place] [address] Dr. Hardeep Clark 07-03-2022 CNPN Telephone (JULIAN [facility]) SYLVIA HERRERA ([id number]) 1945 F Date Time Provider Department 07/03/22 SOY MCCANN [facility] During your visit today, we recorded the following information about you: Linden Faustina 07/03/2022 1:02 PM Signed Patient had labs drawn 07/03/22, uploaded to [facility]. Allergies As of Date: 07/03/2022 Noted [...] mg by mouth three times daily. - qvyvdu-kfbmxghs-pxnbh se (CREON) 24,000-76,000 -120,000 unit cpDR Take [...] Status:Closed by LINDEN WEEMS on 07/03/22 Normal [facility] PROF CHEM 8 (BAS METB)on Anion gap [Moles/Vol] 12.9 mmol/L Normal [facility] Comment on above: Performed By: #### RANDALL OLSON #### [facility] [address] [place] [address] Dr. Hardeep Rivera Calcium [Mass/Vol] 9.0 mg/dL Normal 8.5-10.1 [facility] Comment on above: Performed By: #### RANDALL OLSON #### [facility] [address] [place] [address] Dr. Hardeep Rivera Chloride [Moles/Vol] 98 mmol/L Normal 98-107 [facility] Comment on above: Performed By: #### RANDALL OLSON #### [facility] [address] [place] [address] Dr. Hardeep Rivera CO2 [Moles/Vol] 28.1 mmol/L Normal 21.0-32.0 [facility] Comment on above: Performed By: #### RANDALL OLSON #### [facility] [address] [place] [address] Dr. Hardeep Rivera Creatinine [Mass/Vol] 1.64 mg/dL Critically high 0.55-1.02 [facility] Comment on above: Performed By: #### RANDALL OLSON #### [facility] [address] [address] [address] Hardeep Rivera EGFR-AF SENEGALESE 37 mL/min/1.73m2 Critically low >=60 [facility] Comment on above: Performed By: #### E KATHRIN, UMICRO #### [facility] [address] [address] [address] Hardeep Rivera EGFR-NON AF SENEGALESE 30 mL/min/1.73m2 Critically low >=60 [facility] Comment on above: Performed By: #### E KATHRIN, UMICRO #### [facility] [address] [place] [address] Dr. Hardeep Rivera Glucose [Mass/Vol] 114 mg/dL Critically high 74-106 T [facility] Comment on above: Performed By: #### Deedee PINON, UMICRO #### [facility] [address] [place] [address] Dr. Hardeep Rivera Potassium [Moles/Vol] 4.0 mmol/L Normal 3.5-5.1 [facility] Comment on above: Performed By: #### Deedee PINON UMICRO #### [facility] [address] [place] [address] Dr. Hardeep Rivera Sodium [Moles/Vol] 135 mmol/L Critically low 136-145 Th [facility] Comment on above: Performed By: #### Deedee PINON, UMICRO #### [facility] [address] [place] [address] Dr. Hardeep Rivera Urea nitrogen [Mass/Vol] 24.0 mg/dL Critically high 7.0-18.0 [facility] Comment on above: Performed By: #### Deedee PINON UMICRO #### [facility] [address] [place] [address] Dr. Hardeep Rivera Urea nitrogen/Creatinine [Mass ratio] 14.6 mg/mg Normal [facility] Comment on above: Performed By: #### Deedee PINON, UMICRO #### [facility] [address] [place] [address] Dr. Hardeep Rivera Tacrolimus [facility] 2021 Tacrolimus (Bld) [Mass/Vol] 12.4 ng/mL Normal 5.0-20.0 [facility] Comment on above: Order Comment: Speci men [...] situation. Test performed by chemiluminescent immunoassay using Novitaz. Performed By: #### 1 1253-2 ####[facility] LABCLIA [id number] [place] [address] [place] MG MAMM SCREEN 3D TRISHA CADon 05-28-2022 MG MAMM SCREEN 3D TRISHA CAD Patient: SYLVIA HERRERA Exam Date: 05/28/2022 : 1945 Gender:F Ordering : DR TAO ROONEY . Admission #: [id number] Family : Order #: [id number] CLICK HERE TO VIEW EXAM RADIOLOGY REPORT [...] Treatments None Family Cancers None LOCATION: [facility] BREAST COMPOSITION: Heterogeneously dense,which may obscure small [...] Ibrahim MD on 05/28/2022 at 10:20 Normal [facility] Physician Referralon 022 Physician Referral [phone] [id number] Normal [facility] CNPNon 05-08-2022 CNPN Telephone (CARD [facility]) SYLVIA HERRERA ([id number]) 1945 F Date Time Provider Department 05/08/22 LOIDA MATHIAS CARD [facility] During your visit today, we recorded the following information about you: Linden Wemes 05/08/2022 11:50 AM Signed Patient had labs drawn 05/07/22, uploaded to scanned docs. Linden Weems Administrative [employer] Consultant Loida Mathias APRN.ODETTE 05/08/2022 3:21 PM Signed Received labs drawn [...] transplant. No Dr Ellerp: Rfl: TACROLIMUS/FK-506 BL [[id number]] Order #: [id number] FUTURE Prescriptions as of 05/08/2022 - tacrolimus [...] mg by mouth three times daily. - cfrlln-ptwjytrj-btdqh se (CREON) 24,000-76,000 -120,000 unit cpDR Take [...] 05/19/2014 [facility] (more content not included)... Normal [facility] BOX TEST SENT OUTon 05-07-20 22 SENT TO REF LAB 05/07/2022 Normal [facility] Comment on above: Performed By: #### RANDALL OLSON #### [facility] [address] [place] [address] Dr. Hardeep Rivera CBC AUTO DIFFon 05-07-2022 BASO # 0.0 103/ul Normal 0.0-0.1 [facility] Comment on above: Performed By: #### RANDALL OLSON #### [facility] [address] [place] [address] Dr. Hardeep Rivera Basophils/100 WBC (Bld) 0.4 % Normal 0.2-2.0 [facility] Comment on above: Performed By: #### RANDALL OLSON #### [facility] [address] [place] [address] Dr. Hardeep Rivera EO # 0.1 103/ul Normal 0.0-0.7 [facility] Comment on above: Performed By: #### RANDALL OLSON #### [facility] [address] [place] [address] Dr. Hardeep Rivera Eosinophils/100 WBC (Bld) 1.0 % Normal 0.9-7.0 [facility] Comment on above: Performed By: #### RANDALL OLSON #### [facility] [address] [place] [address] Dr. Hardeep Rivera Erythrocyte distribution width (RBC) [Ratio] 12.6 % Normal 11.0-15.0 [facility] Comment on above: Performed By: #### RANDALL OLSON #### [facility] [address] [place] [address] Dr. Hardeep Rivera Hematocrit (Bld) [Volume fraction] 44.0 % Normal 36.0-48.0 [facility] Comment on above: Performed By: #### Deedee PINON, UMICRO #### [facility] [address] [place] [address] Dr. Hardeep Rivera Hemoglobin (Bld) [Mass/Vol] 14.0 g/dL Normal 12.0-16.0 [facility] Comment on above: Performed By: #### E KATHRIN, UMICRO #### [facility] [address] [place] [address] Dr. Hardeep Rivera IG # 0.02 10e3/ul Normal 0.00-0.03 [facility] Comment on above: Performed By: #### Deedee PINON, UMICRO #### [facility] [address] [place] [address] Dr. Hardeep Rivera IG % 0.3 % Normal 0.0-0.5 [facility] Comment on above: Performed By: #### Deedee PINON, UMICRO #### [facility] [address] [place] [address] Dr. Hardeep Rivera LYMPH # 0.6 103/ul Critically low 1.2-3.8 [facility] Comment on above: Performed By: #### Deedee PINON, UMICRO #### [facility] [address] [place] [address] Dr. Hardeep Rviera Lymphocytes/100 WBC (Bld) 8.2 % Critically low 20.5-60.0 [facility] Comment on above: Performed By: #### Deedee PINON, UMICRO #### [facility] [address] [place] [address] Dr. Hardeep Rivera MANUAL DIFF REQ NO Normal [facility] Comment on above: Performed By: #### E RUR, UMICRO #### [facility] [address] [place] [address] Dr. Hardeep Rivera MCH (RBC) [Entitic mass] 29.4 pg Normal 26.7-34.0 [facility] Comment on above: Performed By: #### HARI OLSONRO #### [facility] [address] [place] [address] Dr. Hardeep Rivera MCHC (RBC) [Mass/Vol] 31.8 g/dL Normal 29.9-35.2 [facility] Comment on above: Performed By: #### Deedee PINON UMICRO #### [facility] [address] [place] [address] Dr. Hardeep Rivera MCV (RBC) [Entitic vol] 92.2 fL Normal 81.0-99.0 [facility] Comment on above: Performed By: #### HARI OLSONRO #### [facility] [address] [place] [address] Dr. Hardeep Rivera MONO # 0.8 103/ul Normal 0.3-0.8 [facility] Comment on above: Performed By: #### HARI OLSONRO #### [facility] [address] [place] [address] Dr. Hardeep Rivera Monocytes/100 WBC (Bld) 9.6 % Normal 1.7-12.0 [facility] Comment on above: Performed By: #### HARI OLSONRO #### [facility] [address] [place] [address] Dr. Hardeep Rivera NEUT # 6.3 103/ul Normal 1.4-6.5 [facility] Comment on above: Performed By: #### HARI OLSONRO #### [facility] [address] [place] [address] Dr. Hardeep Rivera Neutrophils/100 WBC (Bld) 80.5 % Critically high 43.0-75.0 [facility] Comment on above: Performed By: #### HARI OLSONRO #### [facility] [address] [place] [address] Dr. Hardeep Rivera Platelet mean volume (Bld) [Entitic vol] 10.1 fL Normal 9.5-13.5 [facility] Comment on above: Performed By: #### HARI OLSONRO #### [facility] [address] [address] [address] Hardeep Rivera PLT 188 103/ul Normal 150-450 [facility] Comment on above: Performed By: #### HARI OLSONRO #### [facility] [address] [place] [address] Dr. Hardeep Rivera RBC 4.77 106/ul Normal 4.20-5.40 [facility] Comment on above: Performed By: #### AKSHAT OLSONICRO #### [facility] [address] [place] [address] Dr. Hardeep Rivera WBC 7.8 103/ul Normal 4.0-11.0 [facility] Comment on above: Performed By: #### HARI OSLONRO #### [facility] [address] [place] [address] Dr. Hardeep Rivera PROF CHEM 8 (BAS METB)on Anion gap [Moles/Vol] 11.9 mmol/L Normal [facility] Comment on above: Performed By: #### HARI OLSONRO #### [facility] [address] [place] [address] Dr. Hardeep Rivera Calcium [Mass/Vol] 8.7 mg/dL Normal 8.5-10.1 [facility] Comment on above: Performed By: #### Deedee PINON UMICRO #### [facility] [address] [place] [address] Dr. Hardeep Rivera Chloride [Moles/Vol] 99 mmol/L Normal 98-107 [facility] Comment on above: Performed By: #### Deedee PINON UMICRO #### [facility] [address] [place] [address] Dr. Hardeep Rivera CO2 [Moles/Vol] 27.1 mmol/L Normal 21.0-32.0 [facility] Comment on above: Performed By: #### Deedee PINON UMICRO #### [facility] [address] [place] [address] Dr. Hardeep Rivera Creatinine [Mass/Vol] 1.62 mg/dL Critically high 0.55-1.02 [facility] Comment on above: Performed By: #### RANDALL OLSON #### [facility] [address] [place] [address] Dr. Hardeep Rivera EGFR-AF SENEGALESE 37 mL/min/1.73m2 Critically low >=60 [facility] Comment on above: Performed By: #### RANDALL OLSON #### [facility] [address] [place] [address] Dr. Hardeep Rivera EGFR-NON AF SENEGALESE 31 mL/min/1.73m2 Critically low >=60 [facility] Comment on above: Performed By: #### RANDALL OLSON #### [facility] [address] [place] [address] Dr. Hardeep Rivera Glucose [Mass/Vol] 73 mg/dL Critically low 74-106 Th [facility] Comment on above: Performed By: #### RANDALL OLSON #### [facility] [address] [place] [address] Dr. Hardeep Rivera Potassium [Moles/Vol] 4.0 mmol/L Normal 3.5-5.1 [facility] Comment on above: Performed By: #### RANDALL OLSON #### [facility] [address] [place] [address] Dr. Hardeep Rivera Sodium [Moles/Vol] 134 mmol/L Critically low 136-145 Th [facility] Comment on above: Performed By: #### HARI OLSONRO #### [facility] [address] [place] [address] Dr. Hardeep Rivera Urea nitrogen [Mass/Vol] 33.0 mg/dL Critically high 7.0-18.0 [facility] Comment on above: Performed By: #### RANDALL OLSON #### [facility] [address] [place] [address] Dr. Hardeep Rivera Urea nitrogen/Creatinine [Mass ratio] 20.4 mg/mg Normal [facility] Comment on above: Performed By: #### HARI OLSONRO #### [facility] [address] [address] [address] Hardeep Rivera TACROLIMUS/FK-506 BLon 05-07 Tacrolimus (Bld) [Mass/Vol] 3.4 ng/mL Low 5.0-20.0 [facility] Comment on above: Order Comment: Speci men [...] situation. Test performed by chemiluminescent immunoassay using Novitaz. Performed By: #### F K506 ####[facility] LABCLIA [id number] [address] [facility] Eduardo 05-03-2022 CNPN Telephone (CARD [facility]) SYLVIA HERRERA ([id number]) 1945 F Date Time Provider Department 05/03/22 SHO CROWLEY CARD [facility] During your visit today, we recorded the following information about you: Sho Crowley APRN.ENRICHMENT DIRECTOR 05/03/2022 2:58 PM Signed received phone call from [facility] Cardiology group requesting patient's Tacrolimus levels from 04/24. Faxed results to [phone]. Allergies As of Date: 05/03/2022 Noted Allergy [...] mg by mouth three times daily. - ikttbw-fjqhdpbc-qizmz se (CREON) 24,000-76,000 -120,000 unit cpDR Take [...] Status:Closed by SHO CROWLEY on 05/03/22 Normal [facility] BOX TEST SENT OUTon 04-24-20 SENT TO REF LAB 04/24/2022 Normal [facility] Comment on above: Performed By: #### RANDALL OLSON #### [facility] [address] [place] [address] Dr. [facility]22 NIK Telephone (JULIAN [facility]) SYLVIA HERRERA ([id number]) 1945 F Date Time Provider Department 04/24/22 LOIDA MATHIAS [facility] During your visit today, we recorded the following information about you: Linden Weems 04/24/2022 1:31 PM Signed Patient left message that she had labs drawn today. Linden Weems Administrative [employer] Consultant Post Heart Transplant J3-4 Loida Mathias APRN.ODETTE 04/26/2022 11:25 AM Signed Received FK level 4.5, drawn 04/24 My chart message sent to patient. Advised to remain on current dose and keep our office updated re: her plans for post transplant follow up. Loida Mathias APRN.ENRICHMENT DIRECTOR April 26, 2022 11:24 AM Component Latest [...] mg by mouth three times daily. - fzprgg-agytugav-adhpt se (CREON) 24,000-76,000 -120,000 unit cpDR Take [...] Status:Closed by LINDEN WEEMS on 04/24/22 Normal [facility] TACROLIMUS/FK-506 BLon 04-24 Tacrolimus (Bld) [Mass/Vol] 4.5 ng/mL Low 5.0-20.0 [facility] Comment on above: Order Comment: Speci men [...] Test performed by chemiluminescent immunoassay using [employer]. Performed By: #### F K506 ####[facility] LABCLIA [id number] [place] [address] [place] FK506 (TACROLIMUS) WHOLE BLO ODon 04-11-2022 Tacrolimus (FK506), Blood 7.3 ng/mL Normal 2.0-20.0 [facility] Comment on above: Result Comment: Trou gh (immediately following transplant) 15.0 . Trough (steady state, 2 weeks or more after transplant): 3.0 - 8.0 . Performed by LC-MS/MS technology. Performed By: #### HARI OLSONRO #### [facility] [address] [place] [address] Dr. Hardeep Rivera BOX TEST SENT OUTon 04-09-20 22 SENT TO REF LAB 04/09/2022 Normal [facility] Comment on above: Performed By: #### Deedee PINON UMICRO #### [facility] [address] [place] [address] Dr. Hardeep Rivera CBC AUTO DIFFon 04-09-2022 BASO # 0.0 103/ul Normal 0.0-0.1 [facility] Comment on above: Performed By: #### Deedee PINON UMICRO #### [facility] [address] [place] [address] Dr. Hardeep Rivera Basophils/100 WBC (Bld) 0.1 % Critically low 0.2-2.0 [facility] Comment on above: Performed By: #### Deedee PINON UMICRO #### [facility] [address] [place] [address] Dr. Hardeep Rivera EO # 0.1 103/ul Normal 0.0-0.7 [facility] Comment on above: Performed By: #### Deedee PINON UMICRO #### [facility] [address] [place] [address] Dr. Hardeep Rivera Eosinophils/100 WBC (Bld) 1.2 % Normal 0.9-7.0 [facility] Comment on above: Performed By: #### Deedee PINON UMICRO #### [facility] [address] [place] [address] Dr. Hardeep Rivera Erythrocyte distribution width (RBC) [Ratio] 12.6 % Normal 11.0-15.0 [facility] Comment on above: Performed By: #### Deedee PINON UMICRO #### [facility] [address] [place] [address] Dr. Hardeep Rivera Hematocrit (Bld) [Volume fraction] 44.1 % Normal 36.0-48.0 [facility] Comment on above: Performed By: #### HARI OLSONRO #### [facility] [address] [place] [address] Dr. Hardeep Rivera Hemoglobin (Bld) [Mass/Vol] 14.1 g/dL Normal 12.0-16.0 [facility] Comment on above: Performed By: #### HARI OLSONRO #### [facility] [address] [place] [address] Dr. Hardeep Rivera IG # 0.02 10e3/ul Normal 0.00-0.03 [facility] Comment on above: Performed By: #### HARI OLSONRO #### [facility] [address] [place] [address] Dr. Hardeep Rivera IG % 0.3 % Normal 0.0-0.5 [facility] Comment on above: Performed By: #### AKSHAT OLSONICRO #### [facility] [address] [place] [address] Dr. Hardeep Rivera LYMPH # 0.7 103/ul Critically low 1.2-3.8 [facility] Comment on above: Performed By: #### AKSHAT OLSONICRO #### [facility] [address] [place] [address] Dr. Hardeep Rivera Lymphocytes/100 WBC (Bld) 10.8 % Critically low 20.5-60.0 [facility] Comment on above: Performed By: #### Deedee PINON UMICRO #### [facility] [address] [place] [address] Dr. Hardeep Rivera MANUAL DIFF REQ NO Normal [facility] Comment on above: Performed By: #### AKSHAT OLSONICRO #### [facility] [address] [place] [address] Dr. Hardeep Rivera MCH (RBC) [Entitic mass] 29.3 pg Normal 26.7-34.0 [facility] Comment on above: Performed By: #### Deedee PINON UMICRO #### [facility] [address] [place] [address] Dr. Hardeep Rivera MCHC (RBC) [Mass/Vol] 32.0 g/dL Normal 29.9-35.2 [facility] Comment on above: Performed By: #### E RUR, UMICRO #### [facility] [address] [place] [address] Dr. Hardeep Rivera MCV (RBC) [Entitic vol] 91.7 fL Normal 81.0-99.0 [facility] Comment on above: Performed By: #### E RUR, UMICRO #### [facility] [address] [place] [address] Dr. Hardeep Rivera MONO # 0.7 103/ul Normal 0.3-0.8 [facility] Comment on above: Performed By: #### E KATHRIN, UMICRO #### [facility] [address] [place] [address] Dr. Hardeep Rivera Monocytes/100 WBC (Bld) 10.8 % Normal 1.7-12.0 [facility] Comment on above: Performed By: #### E KATHRIN UMICRO #### [facility] [address] [place] [address] Dr. Hardeep Rivera NEUT # 5.2 103/ul Normal 1.4-6.5 [facility] Comment on above: Performed By: #### E KATHRIN, UMICRO #### [facility] [address] [place] [address] Dr. Hardeep Rivera Neutrophils/100 WBC (Bld) 76.8 % Critically high 43.0-75.0 [facility] Comment on above: Performed By: #### E RUR, UMICRO #### [facility] [address] [place] [address] Dr. Hardeep Rivera Platelet mean volume (Bld) [Entitic vol] 9.8 fL Normal 9.5-13.5 [facility] Comment on above: Performed By: #### E RUR, UMICRO #### [facility] [address] [place] [address] Dr. Hardeep Rivera PLT 200 103/ul Normal 150-450 [facility] Comment on above: Performed By: #### RANDALL OLSON #### [facility] [address] [place] [address] Dr. Hardeep Rivera RBC 4.81 106/ul Normal 4.20-5.40 [facility] Comment on above: Performed By: #### HARI OLSONRO #### [facility] [address] [place] [address] Dr. Hardeep Rivera WBC 6.7 103/ul Normal 4.0-11.0 [facility] Comment on above: Performed By: #### HARI OLSONRO #### [facility] [address] [place] [address] Dr. Hardeep Rivera PROF CHEM 8 (BAS METB)on Anion gap [Moles/Vol] 9.1 mmol/L Normal [facility] Comment on above: Performed By: #### HARI OLSONRO #### [facility] [place] [facility] [address] [place] [address] Dr. Hardeep Rivera Calcium [Mass/Vol] 8.3 mg/dL Critically low 8.5-10.1 [facility] Comment on above: Performed By: #### HARI OLSONRO #### [facility] [place] [facility] [address] [place] [address] Dr. Hardeep Rivera Chloride [Moles/Vol] 100 mmol/L Normal 98-107 [facility] Comment on above: Performed By: #### HARI OLSONRO #### [facility] [place] [facility] [address] [place] [address] Dr. Hardeep Rivera CO2 [Moles/Vol] 28.1 mmol/L Normal 21.0-32.0 [facility] Comment on above: Performed By: #### HARI OLSONRO #### [facility] [address] [place] [address] Dr. Hardeep Rivera Creatinine [Mass/Vol] 1.54 mg/dL Critically high 0.55-1.02 [facility] Comment on above: Performed By: #### AKSHAT OLSONICRO #### [facility] [address] [place] [address] Dr. Hardeep Rivera EGFR-AF SENEGALESE 40 mL/min/1.73m2 Critically low >=60 [facility] Comment on above: Performed By: #### Deedee PINON UMICRO #### [facility] [address] [place] [address] Dr. Hardeep Rivera EGFR-NON AF SENEGALESE 33 mL/min/1.73m2 Critically low >=60 [facility] Comment on above: Performed By: #### Deedee PINON UMICRO #### [facility] [address] [place] [address] Dr. Hardeep Rivera Glucose [Mass/Vol] 122 mg/dL Critically high 74-106 T [facility] Comment on above: Performed By: #### Deedee PINON UMICRO #### [facility] [address] [place] [address] Dr. Hardeep Rivera Potassium [Moles/Vol] 4.2 mmol/L Normal 3.5-5.1 [facility] Comment on above: Performed By: #### Deedee PINON UMICRO #### [facility] [address] [place] [address] Dr. Hardeep Rivera Sodium [Moles/Vol] 133 mmol/L Critically low 136-145 Th [facility] Comment on above: Performed By: #### Deedee PINON UMICRO #### [facility] [address] [place] [address] Dr. Hardeep Rivera Urea nitrogen [Mass/Vol] 28.0 mg/dL Critically high 7.0-18.0 [facility] Comment on above: Performed By: #### Deedee PINON UMICRO #### [facility] [address] [place] [address] Dr. Hardeep Rivera Urea nitrogen/Creatinine [Mass ratio] 18.2 mg/mg Normal [facility] Comment on above: Performed By: #### Deedee PINON UMICRO #### [facility] [address] [place] [address] Dr. Hardeep Rivera TACROLIMUS/FK-506 BLon 04-09 Tacrolimus (Bld) [Mass/Vol] 9.9 ng/mL Normal 5.0-20.0 [facility] Comment on above: Order Comment: Speci men [...] situation. Test performed by chemiluminescent immunoassay using Novitaz. Performed By: #### F K506 ####[facility] LAB[facility] [id number] [address] Eduardo 10-10-2021 CNPN Telephone (JULIAN [facility]) SYLVIA HERRERA ([id number]) 1945 F Date Time Provider Department 10/10/21 LOIDA MATHIAS [facility] During your visit today, we recorded the following information about you: Linden Weems 10/10/2021 11:57 AM Signed Patient had labs drawn today Linden Weems Administrative Sap Enterprise Portal Consultant Linden Weems 10/11/2021 10:57 AM Signed Labs uploaded to scanned docs. Linden Weems Administrative Sap Enterprise Portal Consultant Loida Mathias APRN.ENRICHMENT DIRECTOR 10/12/2021 12:28 PM Signed Received outside labs [...] transplant. No Dr Caldera: Rfl: TACROLIMUS/FK-506 BL [[id number]] Order #: [id number] FUTURE Prescriptions as of 10/12/2021 - tacrolimus [...] mg by mouth three times daily. - dddklo-pnxoctad-xkhiy se (CREON) 24,000-76,000 -120,000 unit cpDR Take [...] [J18.9] 11/29 (more content not included)... Normal [facility] Tacrolimus / [id number] Tacrolimus / FK506 10.1 ng/mL Normal 5.0-20.0 [facility] Comment on above: Result Comment: [...] Test performed by chemiluminescent immunoassay using [employer] Change Management Specialist. Performed By: #### F K506 ####[facility] [id number] [place], [place] [id number] Eduardo 09-13-2021 NIK Telephone (CARD MARICEL DEXTER) SYLVIA HERRERA ([id number]) 1945 F Date Time Provider Department 09/13/21 ARELIS NEWSOME CARD [facility] ISACC During your visit today, we recorded the following information about you: Linden Weems 09/13/2021 2:52 PM Signed S/w pt, due to transportation and financial constraints she is unable to come to [place] for appointments. Patient is working with her manager of case to establish care with a local tobacco sizer (had previously been followed by one in [place]).Dr Rice has agreed and plan going forward will be to do a phone visit with pt on 10/03 and she will follow up in the interim with her local Blender Machine Operator. Sending pt mailers and lab order, she will get those done as soon as she can. Linden Weems Administrative Sap Enterprise Portal Consultant Allergies As of Date: 09/13/2021 Noted Allergy [...] mg by mouth three times daily. - yziews-elmqfguo-cshtm se (CREON) 24,000-76,000 -120,000 unit cpDR Take [...] Encounter Status:Closed by LINDEN WEEMS on 09/13/21 [facility] OBSOLETEon 09-12-2021 OBSOLETE Refill (CARD CHF ISACC ) SYLVIA HERRERA ([id number]) 1945 F Date Time Provider Department 09/12/21 [facility] During your visit today, we recorded [...] mg by mouth three times daily. - qsarvm-sqesttav-hmkyc se (CREON) 24,000-76,000 -120,000 unit cpDR Take [...] Status:Closed by SANDRITA GUERRERO on 09/12/21 Normal [facility] Vital Signs Date Time Vital Sign Value Performing Clinician Dami charles 04-08-2023 06:45-0400 Diastolic blood pressure 76 mm[Hg] [facility] 04-08-2023 06:45-0400 Heart rate 59 /min [facility] 04-08-2023 06:45-0400 Hourly Rounding [facility] 04-08-2023 06:45-0400 Mean blood pressure 106 mm[Hg] Richard Roby [facility] 04-08-2023 06:45-0400 Respiratory rate 18 /min Richard Roby [facility] 04-08-2023 06:45-0400 SaO2% (BldA) [Mass fraction] 96 % Richard Roby [facility] 04-08-2023 06:45-0400 Systolic blood pressure 167 mm[Hg] Richard Roby [facility] 04-08-2023 05:30-0400 Diastolic blood pressure 88 mm[Hg] Richard Roby [facility] 04-08-2023 05:30-0400 Heart rate 52 /min Richard Roby [facility] 04-08-2023 05:30-0400 Hourly Rounding Richard Roby [facility] 04-08-2023 05:30-0400 Mean blood pressure 114 mm[Hg] Richard Roby [facility] 04-08-2023 05:30-0400 Respiratory rate 18 /min Richard Roby [facility] 04-08-2023 05:30-0400 SaO2% (BldA) [Mass fraction] 95 % Richard Roby [facility] 04-08-2023 05:30-0400 Systolic blood pressure 167 mm[Hg] Richard Roby [facility] 04-08-2023 04:39-0400 Diastolic blood pressure 90 mm[Hg] Richard Roby [facility] 04-08-2023 04:39-0400 Heart rate 56 /min Richard Roby [facility] 04-08-2023 04:39-0400 Hourly Rounding Richard Ca [facility] 04-08-2023 04:39-0400 Mean blood pressure 112 mm[Hg] Richard Roby [facility] 04-08-2023 04:39-0400 Respiratory rate 17 /min Richard Roby [facility] 04-08-2023 04:39-0400 SaO2% (BldA) [Mass fraction] 94 % Richard Roby [facility] 04-08-2023 04:39-0400 Systolic blood pressure 155 mm[Hg] Richard Roby [facility] 04-07-2023 21:48-0400 Respiratory rate 18 /min Richard Ca [facility] 04-07-2023 21:19-0400 Body temperature 98.06 [degF] Richard Ca [facility] 04-07-2023 21:19-0400 Heart rate 65 /min Richard Roby [facility] 04-07-2023 21:19-0400 Respiratory rate 19 /min Richard Collinsner [facility] Encounters Encounter Date Encounter Type Care Provider Facility Start: 02-03-2024 End: 02-03-2024 ambulatory [facility] Start: 11-12-2023 End: 11-12-2023 ambulatory [facility] Start: 08-07-2023 End: 08-07-2023 ambulatory [facility] Start: 04-07-2023 End: 04-08-2023 Emergency department patient visit Richard SLaura Ca Facility:[facility] Start: 04-07-2023 End: 04-08-2023 Emergency department patient visit Richard Ca [facility] Start: 03-05-2023 End: 03-05-2023 ambulatory SCOT ROGERS Facility:[facility] Start: 02-26-2023 End: 02-27-[address] ANISHA DINH Facility:[facility] Start: 02-14-2023 End: 02-14-2023 ambulatory NANCY REYES . Facility:[facility] Start: 02-13-2023 End: 02-14-2023 ambulatory SCOT ROGERS Facility:[facility] Start: 02-09-2023 End: 02-10-[address] ANISHA DINH Facility:[facility] Start: 01-09-2023 End: 01-10-[address] TAO ROONEY . Facility:[facility] Start: 12-13-2022 End: 12-14-2022 ambulatory SCOT ROGERS Facility:[facility] Start: 12-11-2022 End: 12-12-[address] TAO ROONEY . Facility:[facility] Start: 11-14-2022 End: 11-14-2022 ambulatory SCOT ROGERS Facility:[facility] Start: 10-03-2022 End: 10-03-2022 ambulatory SCOT ROGERS Facility:[facility] Start: 09-08-2022 Refill Sandrita Guerrero APRN.CNP Work Phone: Cardiology Comment on above: Refill Request Start: 08-04-2022 End: 08-04-2022 ambulatory NANCY REYES . Facility:[facility] Start: 08-02-2022 Telephone encounter Loida Mathias APRN.CNP Work Phone: Cardiology Comment on above: Heart Transplant Fol low Up (Labs/) Start: 08-02-2022 End: 08-03-[address] TAO ROONEY . Facility:[facility] Start: 07-27-[address] TAO ROONEY . Facili ty:[facility] Start: 07-17-2022 End: 07-18-2022 ambulatory [facility] Facility[facility] Start: 07-16-2022 End: 07-17-2022 ambulatory [facility] Facility:[facility] Start: 07-16-2022 End: 07-16-2022 Patient encounter procedure Eddie JAMA [facility] Start: 07-12-2022 End: 07-13-2022 ambulatory Eddie JAMA Facility:[facility] Start: 07-05-2022 Telephone encounter Sho Crowley APRN.ENRICHMENT DIRECTOR Work Phone: Cardiology Comment on above: Heart Transplant Fol low Up; Lab Meeting Start: 07-03-2022 Telephone encounter Soy Mccann RN [facility] rdiology Comment on above: Heart Transplant Fol low Up (labs) Start: 07-03-2022 End: 07-04-[address] TAO ROONEY . Facility:[facility] Start: 05-28-2022 End: 05-29-[address] TAO ROONEY . Facility:[facility] Start: 05-23-2022 [facility] Start: 05-08-2022 Telephone encounter Loida Mathias APRN.ENRICHMENT DIRECTOR Work Phone: Cardiology Comment on above: Heart Transplant Fol low Up (labs) Start: 05-07-2022 End: 05-08-[address] TAO ROONEY . Facility:[facility] Start: 04-24-2022 Telephone encounter Loida Mathias APRN.ENRICHMENT DIRECTOR Work Phone: Cardiology Comment on above: Heart Transplant Fol low Up Start: 04-24-2022 End: 04-25-[address] TAO ROONEY . Facility:[facility] Start: 04-20-[address] TAO ROONEY . Facili ty:[facility] Start: 04-11-2022 ambulatory Loida fontaine APRN.ENRICHMENT DIRECTOR Work Phone: [facility] Start: 04-11-2022 Follow-up encounter Loida Mathias APRN.ENRICHMENT DIRECTOR Work Phone: Cardiology Comment on above: Heart Transplant Fol low Up (Labs) Start: 04-09-2022 End: 04-10-[address] TAO ROONEY . Facility:[facility] Start: 04-06-2022 Orders Only Loida fontaine APRN.ENRICHMENT DIRECTOR Work Phone: Cardiology Comment on above: Heart replaced by tr ansplant (HCC) (Primary Dx) Start: 04-04-2022 Refill Loida fontaine APRN.ENRICHMENT DIRECTOR Work Phone: Cardiology Comment on above: Rx Refills Start: 10-03-2021 End: 10-03-2021 ambulatory NICOLETTE RICE [facility] Procedures Date Procedure Procedure Detail Performing Clinician Start: 08-10-2013 H/O: heart recipient Heart transplan arianna Loida Mathias VACUUM COOKER OPERATOR.ENRICHMENT DIRECTOR Work Phone: H/O: heart recipient Heart transplanted ( HCC) Loida Mathias VACUUM COOKER OPERATOR.ENRICHMENT DIRECTOR Work Phone: H/O: heart recipient Heart repla nitish by transplant ([facility]) Loida Bishopo VACUUM COOKER OPERATOR.ENRICHMENT DIRECTOR Work Phone: H/O: heart recipient Heart transplanted ( HCC) Loida Bishopo VACUUM COOKER OPERATOR.ENRICHMENT DIRECTOR Work Phone: H/O: heart recipient Heart transplanted ( HCC) Loida Gustafsonrino VACUUM COOKER OPERATOR.ENRICHMENT DIRECTOR Work Phone: H/O: heart recipient Heart transplanted ( HCC) Sho Crowley VACUUM COOKER OPERATOR.ENRICHMENT DIRECTOR Work Phone: H/O: heart recipient Hx of heart transplant( Confirmed ) Morgan RITO Plan of Treatment Date Care Activity Detail Author Start: 08-02-2022 Influenza vaccination INFLUENZA (#1) [facility] Start: 07-19-2022 End: 09-18-2022 Tacrolimus [Mass/volume] in Blood TACROLIMUS/FK-506 BL Lab Routine Heart transplanted (HCC) Expected: 07/19/2022 (Approximate), Expires: 09/18/2022 [facility] Work Phone: Comment on above: Expected: 07/19/2022 (Approximate), Expires: 09/18/2022 Start: 05-21-2022 End: 07-21-2022 TACROLIMUS/FK-506 BL TACROLIMUS/FK-506 BL Lab Routine Heart transplanted ([facility]) Expected: 05/21/2022, Expires: 07/21/2022 [facility] Work Phone: Comment on above: Expected: 05/21/2022 , Expires: 07/21/2022 Start: 04-23-2022 End: 06-23-2022 TACROLIMUS/FK-506 BL TACROLIMUS/FK-506 BL Lab Routine Heart transplanted (HCC) Expected: 04/23/2022, Expires: 06/23/2022 [facility] Work Phone: Comment on above: Expected: 04/23/2022 , Expires: 06/23/2022 Start: 04-09-2022 End: 06-09-2022 CBC W Auto Differential panel - Blood CBC + DIFF Lab Routine Heart replaced by transplant ([facility]) Expected: 04/09/2022, Expires: 06/09/2022 [facility] Work Phone: Comment on above: Expected: 04/09/2022 , Expires: 06/09/2022 Start: 04-09-2022 End: 06-09-2022 Comprehensive metabolic 2000 panel - Serum or Plasma COMP METABOLIC PANEL Lab Routine Heart replaced by transplant ([facility]) Expected: 04/09/2022, Expires: 06/09/2022 [facility] Work Phone: Comment on above: Expected: 04/09/2022 , Expires: 06/09/2022 Start: 04-09-2022 End: 04-06-2023 HEART/LUNG REC POST TX DSA HEART/LUNG REC POST TX DSA ALLOGEN Routine Heart replaced by transplant ([facility]) Expected: 04/09/2022, Expires: 04/06/2023 [facility] Work Phone: Comment on above: Expected: 04/09/2022 , Expires: 04/06/2023 Start: 04-09-2022 End: 06-09-2022 LIPID PANEL BASIC LIPID PANEL BASIC Lab Routine Heart replaced by transplant ([facility]) Expected: 04/09/2022, Expires: 06/09/2022 [facility] Work Phone: Comment on above: Expected: 04/09/2022 , Expires: 06/09/2022 Start: 04-09-2022 End: 06-09-2022 Magnesium [Mass/volume] in Serum or Plasma MAGNESIUM BLD Lab Routine Heart replaced by transplant ([facility]) Expected: 04/09/2022, Expires: 06/09/2022 [facility] Work Phone: Comment on above: Expected: 04/09/2022 , Expires: 06/09/2022 Start: 04-09-2022 End: 06-09-2022 TACROLIMUS/FK-506 BL TACROLIMUS/FK-506 BL Lab Routine Heart replaced by transplant ([facility]) Expected: 04/09/2022, Expires: 06/09/2022 [facility] Work Phone: Comment on above: Expected: 04/09/2022 , Expires: 06/09/2022 Start: 04-09-2022 End: 06-09-2022 URINALYSIS, DIPSTICK ONLY URINALYSIS, DIPSTICK ONLY Lab Routine Heart replaced by transplant ([facility]) Expected: 04/09/2022, Expires: 06/09/2022 [facility] Work Phone: Comment on above: Expected: 04/09/2022 , Expires: 06/09/2022 Start: 12-02-2021 ADVANCE DIRECTIVE DISCUSSION ADVANCE DIRECTIVE DISCUSSION [facility] Start: 09-26-2021 COVID-19 VACCINE (3 - Pfizer risk 4-dose series) COVID-19 VACCINE (3 - Pfizer risk 4-dose series) [facility] Start: 09-26-2021 COVID-19 VACCINE (3 - Pfizer risk series) COVID-19 VACCINE (3 - Pfizer risk series) [facility] Start: 03-04-2020 Hepatitis B surface antibody level LDL CHOLESTEROL [facility] Start: 06-14-2015 Hemoglobin A1c/Hemoglobin.total in Blood HBA1C [facility] Start: 11-01-2013 PNEUMOCOCCAL: 65+ (3 - PCV) PNEUMOCOCCAL: 65+ (3 - PCV) [facility] Start: 2009 ADULT PREVNAR ADULT PREVNAR [facility] Start: 1994 SHINGRIX VACCINE (1 of 2) SHINGRIX VACCINE (1 of 2) [facility] Start: 1963 SHINGRIX VACCINE (1 of 2) SHINGRIX VACCINE (1 of 2) [facility] Start: 1963 Urine microalbumin profile DTAP,TDAP,TD (1 - Tdap) [facility] Start: 1962 ANNUAL PCP TEAM SPA ATTENDANT BRENNAN DISEASE VISIT ANNUAL PCP TEAM CHRONIC DISEASE VISIT [facility] Start: 1962 BP CONTROLLED (<130/80) BP CONTROLLE D (<130/80) [facility] Start: 1954 3 comp foot exam completed DIABETIC FOOT EXAM [facility] Start: 1954 Hepatitis B screening URINE ALBUMIN:CREATININE RATIO [facility] Start: 1954 Hepatitis C antibody , confirmatory test DILATED RETINAL EXAM [facility] Start: 1950 PNEUMOCOCCAL: 65+ (1 - PCV) PNEUMOCOCCAL: 65+ (1 - PCV) [facility] Immunizations Immunization Date Immunization Notes Care Provider Valente mendes 06-05-2022 SARS-CoV-2 mRNA (ufybjpyybkd-lqac-flmke se) vaccine Morgan SALAM [facility] 08-29-2021 SARS-CoV-2 (COVID-19 ) mRNA BNT-162b2 vax Morgan SALAM [facility] 08-02-2021 SARS-CoV-2 (COVID-19 ) mRNA BNT-162b2 vax Morgan SALAM [facility] 07-05-2021 influenza virus vaccine, unspecified formulation Morgan SALAM [facility] 09-29-2020 influenza, unspecifi ed formulation Morgan SALAM [facility] 07-24-2020 influenza virus vaccine, unspecified formulation Morgan SALAM [facility] 09-02-2017 influenza virus vaccine, unspecified formulation Morgan SALAM [facility] 08-07-2017 pneumococcal conjuga te vaccine, 13 valent Morgan SALAM [facility] 08-14-2016 influenza virus vaccine, unspecified formulation Morgan SALAM [facility] 09-29-2015 pneumococcal conjuga te vaccine, 13 valent Morgan SALAM [facility] 08-04-2015 influenza virus vaccine, unspecified formulation Morgan SALAM [facility] 09-15-2014 influenza virus vaccine, whole virus Loida Iammarino VACUUM COOKER OPERATOR.ENRICHMENT DIRECTOR Work Phone: [facility] 09-15-2014 influenza, whole Morgan SALAM [facility] 11-01-2012 pneumococcal polysaccharide vaccine, 23 valent Loida Iammarino VACUUM COOKER OPERATOR.ENRICHMENT DIRECTOR Work Phone: [facility] 12-28-2009 novel qrahrecxx-[id number], all formulations Loida Iammarino VACUUM COOKER OPERATOR.ENRICHMENT DIRECTOR Work Phone: [facility] Work Phone: 08-19-2009 influenza virus vaccine, unspecified formulation Loida Iammarino VACUUM COOKER OPERATOR.ENRICHMENT DIRECTOR Work Phone: [facility] 09-01-2006 influenza virus vaccine, unspecified formulation Loida Iammarino VACUUM COOKER OPERATOR.ENRICHMENT DIRECTOR Work Phone: [facility] Work Phone: 09-01-2006 pneumococcal polysaccharide vaccine, 23 valent Loida Iammarino VACUUM COOKER OPERATOR.ENRICHMENT DIRECTOR Work Phone: [facility] Work Phone: NEGATED: Highlighted row has not occurred!07-12-2022 influenza virus vaccine, unspecified formulation Morgan SALAM [facility] Payers Date Payer Category Payer Medicare UHC MEDICARE UHC DUAL COMPLETE HMO SNP [id number] 2022-[facility] [phone] [address] [place] [address] Medicare [id number] 2022 Medicare UHC MEDICARE UHC DUAL COMPLETE HMO SNP [id number] 2022-Present [phone] [address] [place] [address] Medicare [id number] 2020 Unknown [id number] 1959 Medicaid [id number] 1959 Medicare [id number] 1959 Self-pay [id number] 1959 Unknown [id number] 1944 Unknown [id number] 2.16.840.1.646992.3.579.2.593 1944 Unknown [id number] 2.16.840.1.689357.3.579.2.593 1944 Unknown [id number] 2.16.840.1.854539.3.579.2.593 1944 Unknown [id number] 2.16.840.1.207850.3.579.2.593 1944 Unknown [id number] 2.16.840.1.889220.3.579.2.593 1944 Unknown [id number] 2.16.840.1.760782.3.579.2.593 1944 Unknown [id number] 2.16.840.1.518457.3.579.2.593 1944 Unknown [id number] 2.16.840.1.445945.3.579.2.593 1944 Unknown [id number] 2.16.840.1.533279.3.579.2.593 1944 Unknown [id number] 2.16.840.1.201963.3.579.2.593 1944 Unknown [id number] 2.16.840.1.506947.3.579.2.593 1944 Unknown [id number] 2.16.840.1.704312.3.579.2.593 1944 Unknown [id number] 2.16.840.1.001210.3.579.2.593 1944 Unknown [id number] 2.16.840.1.813587.3.579.2.593 1944 Unknown [id number] 2.16.840.1.459773.3.579.2.593 1944 Unknown [id number] 2.16.840.1.974065.3.579.2.593 1944 Unknown [id number] 2.16.840.1.104839.3.579.2.593 1944 Unknown [id number] 2.16.840.1.915132.3.579.2.593 1944 Unknown [id number] 2.16.840.1.738687.3.579.2.727 1944 Unknown [id number] 2.16.840.1.043984.3.579.2.727 1944 Unknown [id number] 2.16.840.1.582224.3.579.2.727 1944 Unknown [id number] 2.16.840.1.564355.3.579.2.727 1944 Unknown [id number] 2.16.840.1.888052.3.579.2.727 Unknown [id number] 2.16.840.1.019691.3.579.2.593 Social History Date Type Detail Facility Start: [facility]13-[facility] Work Phone: History of tobacco use Cigarette Smoker [facility] Work Phone: Start: 09-07-2019 Alcohol intake Current non-dr clamp operator of alcohol (finding) [facility] Start: 1945 Sex Assigned At Not on file [facility] [facility] Start: 07-12-2022 Never smoked t obacco (finding) [facility] Never [facility] Female [facility] History of tobacco use Current smoker [facility] Start: 05-13-2019 Cigarettes smoked current (pack per day) - Reported 0.3 [facility] Start: 05-13-2019 Tobacco use and exposure Smokeless tobacco non-user [facility] Functional Status Date Assessment Result Facility 04-07-2023 Functional Status N/A [facility] Clinical Notes 11-14-2017 to 02-03-2024 Note Date & Type Note Facility 02-03-2024 Note [facility] Subjective Sylvia Herrera is a 78 y.o. year old female patient being seen for follow up [facility]. She was seen as inpatient consult by Gerhard Fitzgerald CNP for syncope. She denies recurrent syncope since discharge. Carvedilol was reduced to 12.5mg bid and losartan was stopped. She says her BP has been in the 150's systolic. Denies chest pain, SOB, and palpitations. Still getting dizzy spells where she tries to sit down quickly. Says her BP has been better than it was during admission. Last tacolimus level was checked . Patient Active Problem List Diagnosis Nonischemic congestive [...] Alcohol use: Not Currently Drug use: Never [facility] Visit of 10/30/2021: Sylvia is seen as [...] in 2007. She is followed by the [facility] cardiology service. She has had no [...] abnormalities. Exam was compared with the prior echocardiographi (more content not included)... [facility] 11-12-2023 Note [place] Cardiology - [facility] Subjective Sylvia Herrera is a [...] in 2007. She is followed by the [facility] cardiology service. She has had no [...] Stress Testing (1 (more content not included)... [facility] 10-28-2023 Note [facility] 08-07-2023 Note ID Cardiology - [facility] Subjective Sylvia Herrera is a [...] in 2007. She is followed by the [facility] cardiology service. She has had no [...] scan. [address] (more content not included)... [facility] 07-23-2023 Note ta [facility] 04-08-2023 Hospital Discharge instructions Patient Education [...] ?Adrenal gland problems. ?Metabolic conditions, such as Mellette's disease or syndrome of inappropriate antidiuresis (SIAD). [...] improvement. Follow these instructions at home: Take vuwj-biw-lhcvtuv and prescription medicines only as told by [...] provider. Document Revised: 05/29/2022 Document Reviewed: 05/29/2022 [employer] Patient Education 2022 [employer]. 04/08/2023 08:56:02 Nonspecific Chest Pain, Adult Nonspecific [...] Follow these instructions at home: Medicines Take xyir-pcl-kcmmtkn and prescription medicines only as told by [...] provider. Document Revised: 02/01/2022 Document Reviewed: 02/01/2022 [employer] Patient Education 2022 [employer] Follow Up Care 04/07/2023 21:19:10 With:SCOT ROGERS Address: [address] [place] [address] [phone] Business (1) When:Within 3 Day(s) [facility] 04-07-2023 Evaluation + Plan note Extrac [...] Troponin 9 Hr. XR Chest Single View [facility]09-01-2022 Miscellaneous Notes* Telephone Encounter - Linden Faustina - 08/02/2022 1:41 PM EDT Patient had labs drawn 08/02/22, uploaded to scanned docs. [facility] Miscellaneous Notes* Telephone Encounter - Sho Crowley APRN.ODTETE - 07/05/2022 10:40 AM EDT 07/03/22 labs: [...] another team. Sho Crowley APRN, ODETTE Pager: [phone] July 05, 2022 10:42 AM Post Heart Transplant Nurse Practitioner documented in this encounterJ[facility]. [facility]08-02-2022 Miscellaneous Notes* Telephone Encounter - Linden Weems - 07/03/2022 12:59 PM EDT Patient had labs drawn 07/03/22, uploaded to scanned docs. documented in this encounterJ[facility]06-07-2022 Miscellaneous Notes* Addendum Note - Loida [...] uploaded to scanned docs. Linden Weems Administrative [employer] Portal Consultant documented in this encounterJ.[facility]. [facility]05-24-2022 Miscellaneous Notes* Telephone Encounter - Linden Weems - 04/24/2022 1:31 PM EDT Patient left message that she had labs drawn today. Linden Weems Administrative [employer] Portal Consultant Post Heart Transplant J3-4 documented in this encounterJ.[facility]. [facility]05-11-2022 NoteHNO ID: [id number] Author: Loida Iammarino, VACUUM COOKER OPERATOR.ENRICHMENT DIRECTOR Service: ? Author Type: Nurse Practitioner Type: [...] reports she can no longer travel to [place]. She does not have a ride, she has no family or friends to lean on. She has made an appt with a local Blender Machine Operator. She will ask him if there are any transplant doctors or centers near her and potentially need to transfer her care. She will keep us updated. Loida Mathias APRN.ENRICHMENT DIRECTOR April 12, 2022 2:25 [facility]05-11-2022 History of Present illness Narrative* Loida Mathias APRN.ENRICHMENT DIRECTOR - 04/11/2022 3:42 PM EDT Received outside [...] reports she can no longer travel to [place]. Shedoes not have a ride, she has no family or friends to lean on. She has made an appt with a local Blender Machine Operator. She will ask him if there are any transplant doctors or centers near her and potentiallyneed to transfer her care. She will keep us updated. Loida Mathias APRN.CNP April 12, 2022 2:25 PM documented in this encounterJ.[facility]. [facility]11-08-2021 NoteHNO ID: [id number] Author: Loida Mathias APRN.CNP Service: ? Author [...] Loida Mathias APRN.CNP October 09, 2021 4:10 [facility]11-02-2021 NoteHNO ID: [id number] Author: Nicolette Rice MD Service: ? Author Type: Physician Type: Progress Notes Filed: 10/03/2021 4:12 PM Note Text: Heart, Vascular AND Thoracic [place] Department of Cardiovascular Medicine TELEPHONE VISIT PROGRESS NOTE This is a telephone encounter initiated for an established patient, parent or guardian not originating from a related Evaluation AND Management service provided within the previous 7 days nor leading to an Evaluation AND Management service or procedure within the next 24 hours or soonest available appointment. Sylvia Herrera has consented to this telephone encounter. Persons [...] in ~6 months. Will see a local tobacco sizer at the end of the month. Data Reviewed: No new labs Assessment: She is doing well clinically and her BP is controlled. ? Plan: 1. She was instructed to continue the current medical program. 2. RTC per post-transplant protocol. Total Time Spent: 21-30 minutes Nicolette Rice [facility]12-14-2017 History of Past illness Narrative* Problem Noted [...] of this encounter (statuses as of 04/05/2022) [facility] History of Past illness Narrative* [...] of this encounter (statuses as of 04/06/2022) [facility] History of Past illness Narrative* [...] of this encounter (statuses as of 04/12/2022) [facility] History of Past illness Narrative* [...] of this encounter (statuses as of 04/24/2022) [facility] History of Past illness Narrative* [...] of this encounter (statuses as of 05/08/2022) [facility] History of Past illness Narrative* [...] of this encounter (statuses as of 07/03/2022) [facility] History of Past illness Narrative* [...] of this encounter (statuses as of 07/05/2022) [facility] History of Past illness Narrative* [...] of this encounter (statuses as of 08/02/2022) [facility] History of Past illness Narrative* [...] of this encounter (statuses as of 09/11/2022) [facility] note Future Appointments Appointment Date:08/01/2022 01:50:00 PM Scheduled Provider: Location:[facility] Appointment Type:Surgery FT Diagnostic Tests Pending * CMV Antibody IgM 07/16/22 Future Scheduled Tests Laboratory* Fecal WBC Lactoferrin 07/12/22 * Giardia lamblia, Direct Detection EIA 07/12/22 * O & P Exam, Routine 07/12/22 * Clostridium difficile by PCR 07/12/22 * Enteric Panel by PCR 07/12/22 [facility] Diagnosis Heart transplanted (HCC) Heart replaced by [facility] Diagnosis Heart replaced by transplant (HCC)- Primary Heart replaced by transplant documented in this encounter [facility] note* Diagnosis Heart replaced by transplant (HCC)- Primary Heart replaced by transplant Heart transplanted (HCC) Heart replaced by transplant [facility]* Diagnosis Heart transplanted (HCC) Heart replaced by transplant documented in this encounter [facility] note* Diagnosis Heart transplanted (HCC) Heart replaced by transplant documented in this encounter [facility] course Narrative No data available for this section [facility] Dis[facility] instructions No data available for this section [facility] No data available for this section [facility] Advance Directives No Advanced Directives Records FoundDocuments on File Type Date Recorded Patient Correctional Maintenance Technician Expl anation Advance Directive(s) 11/14/2017 5:44 AM Advance Directive(s) 01/02/2012 12:00 AM Advance Directive(s) 01/17/2007 12:00 AM Documents on File Type Date Recorded Patient Correctional Maintenance Technician Expl anation Advance Directive(s) 01/02/2012 Advance Directive(s) [...] or prosecute any alcohol or drug abuse patient.[facility] HospitalIn the event this information is protected by the Federal Confidentiality of Alcohol and Drug Abuse Patient Records regulations: The Federal rules restrict any use of the information to criminally investigate or prosecute any alcohol or drug abuse patient.[facility] Hospital[facility] the event this information is protected by the Federal Confidentiality of Alcohol and Drug Abuse Patient Records regulations: The Federal rules restrict any use of the information to criminally investigate or prosecute any alcohol or drug abuse patient.[facility] Hospital[facility] the event this information is protected by the Federal Confidentiality of Alcohol and Drug Abuse Patient Records regulations: The Federal rules restrict any use of the information to criminally investigate or prosecute any alcohol or drug abuse patient.[facility] Hospital[facility] the event this information is protected by the Federal Confidentiality of Alcohol and Drug Abuse Patient Records regulations: The Federal rules restrict any use of the information to criminally investigate or prosecute any alcohol or drug abuse patient.[facility] HospitalIn the event this information is protected by the Federal Confidentiality of Alcohol and Drug Abuse Patient Records regulations: The Federal rules restrict any use of the information to criminally investigate or prosecute any alcohol or drug abuse patient.[facility] HospitalIn the event this information is protected by the Federal Confidentiality of Alcohol and Drug Abuse Patient Records regulations: The Federal rules restrict any use of the information to criminally investigate or prosecute any alcohol or drug abuse patient.[facility] HospitalIn the event this information is protected by the Federal Confidentiality of Alcohol and Drug Abuse Patient Records regulations: The Federal rules restrict any use of the information to criminally investigate or prosecute any alcohol or drug abuse patient.[facility] HospitalIn the event this information is protected by the Federal Confidentiality of Alcohol and Drug Abuse Patient Records regulations: The Federal rules restrict any use of the information to criminally investigate or prosecute any alcohol or drug abuse patient.[facility] Reason for Visit (unrecogniz ed section and content) Reason Comments Rx Refills Reason Comments Heart Transplant Follow Up Labs Reason Comments Heart Transplant Follow Up Reason Comments Heart Transplant Follow Up labs Reason Comments Heart Transplant Follow Up Lab Meeting Reason Comments Refill Request Care Teams (unrecognized sec tion and content) Mechanical Engineering Director Relationship Specialty Start Date End Date Tao Rooney MD [address] [place] [address] PCP - General Family Practice 05/13/19 Mechanical Engineering Director Relationship Specialty Start Date End Date Tao Rooney MD [address] [place] [address] PCP - General Family Practice 05/13/19 Mechanical Engineering Director Relationship Specialty Start Date End Date Tao Rooney MD [address] [place] [address] PCP - General Family Practice 05/13/19 Mechanical Engineering Director Relationship Specialty Start Date End Date Tao Rooney MD [address] [place] [address] PCP - General Family Practice 05/13/19 Mechanical Engineering Director Relationship Specialty Start Date End Date Tao Rooney MD [address] [place] [address] PCP - General Family Practice 05/13/19 Mechanical Engineering Director Relationship Specialty Start Date End Date Tao Rooney MD [address] [place] [address] PCP - General Family Medicine 05/13/19 INFORMATION SOURCE (unrecogn ized section and content) DATE CREATED AUTHOR 09/01/2022 [facility] DATE CREATED AUTHOR AUTHOR'S ORGANIZ ATION 03/09/2023 [place] [facility] DATE CREATED AUTHOR AUTHOR'S ORGANIZ ATION 04/08/2023 [facility] DATE CREATED AUTHOR AUTHOR'S ORGANIZ ATION 04/19/2024 [facility] FOR RECORDS PERTAINING TO PATIENTS WHO [...] BE BASED ON THE PRIMARY CLINICAL RECORDS. [facility] [employer] [facility]. provides no warranty or guarantee of the accuracy or completeness of information in this document.
--- NOTE | 2024-06-17 21:32 | ED_ITS ---
HPI HPI - Head Injury General Chief complaint: Fall Stated complaint: fall Time Seen by Provider: 06/17/24 21:28 History of Present Illness HPI Narrative: states this AM she was making breakfast. Recalls becoming dizzy and woke up on the floor. No injury. This evening she again became dizzy and woke up on the floor. Pain of the back of her head. Has vomited a few times. no weakness of her extremities. Denies pain of her back, hip or extremities. No vision complaint MD Complaint: Reports head injury Related Data Home Medications ?Medication ?Instructions ?Recorded ?Confirmed aspirin 81 mg tablet,delayed 81 mg PO DAILY 06/06/23 06/17/24 release kntapm-szrqwkxl-qhrjkay 3 cap PO TID 06/06/23 06/17/24 36,000-114,000-180,000 unit capsule,delay rel (Creon) omega-3 fatty acids-fish oil 360 1 cap PO DAILY 06/06/23 06/17/24 mg-1,200 mg capsule (Fish Oil) pramipexole 0.5 mg tablet 0.5 mg PO DAILY 06/06/23 06/17/24 simvastatin 20 mg tablet 20 mg PO DAILY 06/06/23 06/17/24 tacrolimus 0.5 mg capsule, 0.5 mg PO Q12H 06/06/23 06/17/24 immediate-release levothyroxine 112 mcg tablet 112 mcg PO QDAY 06/07/23 06/17/24 hydroxyzine pamoate 25 mg capsule 25 mg PO .QD PRN anxiety 12/30/23 12/30/23 mycophenolate mofetil 250 mg 500 mg PO BID 12/31/23 06/17/24 capsule citalopram 20 mg tablet 20 mg PO DAILY 06/17/24 06/17/24 Previous Rx's ?Medication ?Instructions ?Recorded carvedilol 12.5 mg tablet 12.5 mg PO BID #60 tabs 01/01/24 magnesium oxide 400 mg (241.3 mg 400 mg PO BID #60 tabs 01/01/24 magnesium) tablet Allergies Allergy/AdvReac Type Severity Reaction Status Date / Time promethazine [From Phenergan] AdvReac Severe Confusion Verified 06/17/24 21:28 ciprofloxacin [From Cipro] AdvReac Mild HIVES Verified 06/17/24 21:28 Opioid HPI Opioid Management Most Recent Pain and Opioid Data: Last Pain Scale 2 12/31/23 16:42 Last Pain Intensity 2 12/31/23 13:45 Review of Systems ROS Status of ROS 10 or more systems reviewed and unremark able except as noted in history and below [facility] Medical History (Updated 06/17/24 @ 23:22 by Luis Hutchinson MD) Syncope ?R55 - Syncope and collapse (ICD-10) Acute kidney injury ?N17.9 - Acute kidney failure, unspecified (ICD-10) Gastroenteritis ?K52.9 - Noninfective gastroenteritis and colitis, unspecified (ICD-10) Heart transplant recipient ?Z94.1 - Heart transplant status (ICD-10) Heart transplant recipient ?Z94.1 - Heart transplant status (ICD-10) Social History (Updated 06/07/23 @ 22:11 by Lizeth Ho) Within the past year, how often did you have a drink containing alcohol: never Score interpretation: A score less than 3 is consistent with normal alcohol consumption. Smoking status: Never smoker Non-prescribed substance use: denies use Highest level of school completed/degree received: high school graduate Are you now , , , , never or living with a partner: In a typical week, how many times do you talk on the telephone with family, friends, or neighbors: 3 or more times per week How often do you get together with friends or relatives: 3 or more times per week How often do you attend congregational or baptist services: 4 or more times per year Do you belong to any clubs or organizations such as congregational groups unions, fraternal or athletic groups, or school groups: no Total score: 3 Score interpretation: A score of greater than or equal to 2 indicates the lowest level of social isolation. Little interest or pleasure in doing things: not at all Feeling down, depressed, or hopeless: not at all Feel stressed/tense/nervous/anxious/difficulty sleeping: not at all Do you think of yourself as: straight/heterosexual Gender Identity: female Exam Constitutional Vital Signs, click to edit/add: Last Vital Signs Temp 98.6 F 06/17/24 21:28 Pulse 74 06/17/24 22:30 Resp 30 H 06/17/24 22:30 BP 167/88 H 06/17/24 22:30 Pulse Ox 98 06/17/24 22:30 O2 Del Method Room Air 06/17/24 21:28 Common normals: no apparent distress, average body habitus, oriented x3, no limitations, healthy appearing, alert and well nourished HENVA Other: no obvious trauma to her scalp but occipital scalp is tender Eye Common normals: PERRL, EOMs intact bilaterally and conjunctivae normal Neck & C-Spine Common normals: full ROM Respiratory Common normals: normal respiratory effort, no retractions, no use of accessory muscles and clear to auscultation bilaterally Cardio Common normals: regular rate, regular rhythm, S1 normal heart sound and S2 normal heart sound GI Common normals: Normal to inspection, nondistended, normoactive bowel sounds present, soft to palpation and non-tender Extremity Common normals: normal to inspection Neuro Common normals: oriented x3, CN's II-XII intact bilaterally, moves all extremi ties and no focal motor deficits Psych Appearance: grossly normal Course Vital Signs Vital signs: Vital Signs Blood Pressure 164/101 H 06/17/24 21:26 Pulse Oximetry 99 06/17/24 21:26 Temperature 98.6 F 06/17/24 21:28 Pulse Rate 74 06/17/24 22:30 Respiratory Rate 30 H 06/17/24 22:30 Blood Pressure 167/88 H 06/17/24 22:30 Pulse Oximetry 98 06/17/24 22:30 Oxygen Delivery Method Room Air 06/17/24 21:28 MDM - Head Injury MDM Narrative Medical decision making narrative: patient presents from home after 2 separate syncope episodes. Each time she woke up on the floor. the 2nd time she struck her head and complained of pain of the back of her head. CT brain and C-spine without acute findings. neg troponin. labs with CKD comparable to past renal studies. cxray clear. Discussed with the hospitalist and will plan obs admission for syncope and head injury Lab Data Labs: Lab Results 06/17/24 Range/Units 21:25 WBC 7.4 (4.0-11.0) 10^3/uL RBC 4.32 (4.20-5.40) 10^6/uL Hgb 12.4 (12.0-16.0) g/dL Hct 38.8 (36.0-48.0) % MCV 89.8 (81.0-99.0) fL MCH 28.7 (26.7-34.0) pg MCHC 32.0 (29.9-35.2) g/dL RDW 12.6 (11.0-15.0) % Plt Count 198 (150-450) 10^3/uL MPV 10.6 (9.5-13.5) fL Neut % (Auto) 77.2 H (43.0-75.0) % Lymph % (Auto) 13.0 L (20.5-60.0) % [place] % (Auto) 8.6 (1.7-12.0) % Eos % (Auto) 0.8 L (0.9-7.0) % Baso % (Auto) 0.1 L (0.2-2.0) % Neut # (Auto) 5.7 (1.4-6.5) 10^3/uL Lymph # (Auto) 1.0 L (1.2-3.8) 10^3/uL [place] # (Auto) 0.6 (0.3-0.8) 10^3/uL Eos # (Auto) 0.1 (0.0-0.7) 10^3/uL Baso # (Auto) 0.0 (0.0-0.1) 10^3/uL Abs Immat Gran (auto) 0.02 (0.00-0.03) 10^3/uL Imm/Tot Granulo (auto) 0.3 (0.0-0.5) % Sodium 136 (136-145) mmol/L Potassium 4.0 (3.5-5.1) mmol/L Chloride 100 (98-107) mmol/L Carbon Dioxide 24.9 (21.0-32.0) mmol/L Anion Gap 15.1 BUN 36.0 H (7.0-18.0) mg/dL Creatinine 1.84 H (0.55-1.02) mg/dL Est GFR ( Amer) 32 L (>=60) Est GFR (Non-Af Amer) 26 L (>=60) BUN/Creatinine Ratio 19.6 Glucose 137 H (74-106) mg/dL Calcium 8.6 (8.5-10.1) mg/dL Troponin I High Sens 6.6 (4.0-51.3) pg/mL Discharge Plan Discharge Chief Complaint: Fall Clinical Impression: Syncope, Head injury Patient Disposition: Admitted as Observation
--- NOTE | 2024-06-17 21:35 | CT_ITS ---
[address] [address] Patient Name: SYLVIA HANNA MRN: [id number] date: 1945 Sex: F Assigned Patient Location: ER Current Patient Location: ER Accession/Order Number: [id number] Exam Date: 06/17/2024 21:48 Report Date: 06/17/2024 23:04 At the request of: ADELINE FLORES Procedure: CT cervical spine wo con INDICATION: 78 years old; Female. Closed head trauma. TECHNIQUE: CT Head (ax/cor/sag reformats). Ionizing radiation dose reduced via iterative reconstruction/FBP blend and body size kV/mA adjustment. Comparison: Head CT dated 12/31/2023. FINDINGS: POSTOPERATIVE CHANGES: None. BRAIN PARENCHYMA: There is a punctate focus of hyperdensity seen in the white matter of the left frontal lobe, image 21/series 5. This is unchanged as compared to the prior examination dated 12/31/2023, image 20/series 5. No intraparenchymal or extra-axial hemorrhage. No mass effect. No midline shift or herniation. There is patchy and confluent low-density in the white matter without mass effect. VENTRICLES/EXTRA-AXIAL SPACES: Normal for patient's age. SINUSES/MASTOIDS: The visualized sinuses are clear. Hypoplastic right frontal sinuses. Maxillary sinuses aren't completely included. Mastoids and middle ears are clear. MSK: No displaced or depressed calvarial fracture. OTHER: No hyperdense intraluminal thrombus is present. TECHNIQUE: CT imaging of the cervical spine was performed. IV contrast: None. Dose reduction techniques were achieved by using automated exposure control and/or adjustment of mA and/or kV according to patient size and/or use of iterative reconstruction technique. COMPARISON: Cervical CT dated 12/30/2023. FINDINGS: POSTOPERATIVE CHANGES: None. ALIGNMENT: Nonspecific straightening of the normal cervical curve. Grade 1 degenerative retrolisthesis at C5-C6. C5 is positioned 2.49 posterior to C6. COMPRESSION FRACTURES: No fracture or vertebral body collapse. No bone destruction. No asymmetric widening of the facets. PREVERTEBRAL SOFT TISSUES: Normal. CRANIOCERVICAL JUNCTION: There is a normal relationship of the occipital condyles, lateral masses of C1, and articular surfaces of C2. The base of the dens and body of C2 are intact. Is narrowing of the predental space with spurring arising from the anterior arch of C1 and the tip of the dens. There is calcification at the insertion of the longus colli tendon. POSTERIOR FOSSA: The cerebellar tonsils are above the foramen magnum. Disc levels: C2-C3: Disc space narrowing. Anterior osteophyte formation. No disc herniation. Central canal patent. Neural foramina patent. C3-C4: Disc space narrowing posteriorly. Disc bulging and endplate osteophyte formation. Left-sided facet degeneration with uncovertebral joint degeneration. Central canal patent. Mild left foraminal stenosis. C4-C5: Disc space narrowing. Vertebral endplate degeneration with endplate osteophyte formation. Broad-based central disc osteophyte complex. Facet degeneration. Central canal is patent. Neural foramina are patent. C5-C6: Disc space narrowing. Grade 1 degenerative spondylolisthesis. Central disc osteophyte complex. Mild central canal stenosis. Facet degeneration bilaterally. Neural foramina are patent. C6-C7: No disc herniation. Facet degeneration on the left. Neural foramina patent. Central canal patent. C7-T1: Disc space narrowing. Anterior osteophyte formation. Facet degeneration. Central canal patent. Neural foramina patent. UPPER THORACIC SPINE: At T1-T2, central canal and neural foramina are patent. OTHER: No change in the appearance of the thyroid. CT/CT cervical spine wo con IMPRESSION: 1. No acute intracranial abnormality. No hemorrhage or mass effect. 2. No change in the punctate focus of dystrophic calcification in the subcortical white matter of the left frontal lobe, unchanged from prior studies. 3. No acute cervical fracture. Cervical spondylosis. Please see the detailed discussion of the individual levels in the body of this report. Electronically authenticated by: JESSICA COLON Date: 06/17/2024 23:04
--- NOTE | 2024-06-17 21:35 | CT_ITS ---
[address] [address] Patient Name: SYLVIA HANNA MRN: [id number] date: 1945 Sex: F Assigned Patient Location: ER Current Patient Location: ER Accession/Order Number: [id number] Exam Date: 06/17/2024 21:48 Report Date: 06/17/2024 23:04 At the request of: ADELINE FLORES Procedure: CT head/brain wo con INDICATION: 78 years old; Female. Closed head trauma. TECHNIQUE: CT Head (ax/cor/sag reformats). Ionizing radiation dose reduced via iterative reconstruction/FBP blend and body size kV/mA adjustment. Comparison: Head CT dated 12/31/2023. FINDINGS: POSTOPERATIVE CHANGES: None. BRAIN PARENCHYMA: There is a punctate focus of hyperdensity seen in the white matter of the left frontal lobe, image 21/series 5. This is unchanged as compared to the prior examination dated 12/31/2023, image 20/series 5. No intraparenchymal or extra-axial hemorrhage. No mass effect. No midline shift or herniation. There is patchy and confluent low-density in the white matter without mass effect. VENTRICLES/EXTRA-AXIAL SPACES: Normal for patient's age. SINUSES/MASTOIDS: The visualized sinuses are clear. Hypoplastic right frontal sinuses. Maxillary sinuses aren't completely included. Mastoids and middle ears are clear. MSK: No displaced or depressed calvarial fracture. OTHER: No hyperdense intraluminal thrombus is present. TECHNIQUE: CT imaging of the cervical spine was performed. IV contrast: None. Dose reduction techniques were achieved by using automated exposure control and/or adjustment of mA and/or kV according to patient size and/or use of iterative reconstruction technique. COMPARISON: Cervical CT dated 12/30/2023. FINDINGS: POSTOPERATIVE CHANGES: None. ALIGNMENT: Nonspecific straightening of the normal cervical curve. Grade 1 degenerative retrolisthesis at C5-C6. C5 is positioned 2.49 posterior to C6. COMPRESSION FRACTURES: No fracture or vertebral body collapse. No bone destruction. No asymmetric widening of the facets. PREVERTEBRAL SOFT TISSUES: Normal. CRANIOCERVICAL JUNCTION: There is a normal relationship of the occipital condyles, lateral masses of C1, and articular surfaces of C2. The base of the dens and body of C2 are intact. Is narrowing of the predental space with spurring arising from the anterior arch of C1 and the tip of the dens. There is calcification at the insertion of the longus colli tendon. POSTERIOR FOSSA: The cerebellar tonsils are above the foramen magnum. Disc levels: C2-C3: Disc space narrowing. Anterior osteophyte formation. No disc herniation. Central canal patent. Neural foramina patent. C3-C4: Disc space narrowing posteriorly. Disc bulging and endplate osteophyte formation. Left-sided facet degeneration with uncovertebral joint degeneration. Central canal patent. Mild left foraminal stenosis. C4-C5: Disc space narrowing. Vertebral endplate degeneration with endplate osteophyte formation. Broad-based central disc osteophyte complex. Facet degeneration. Central canal is patent. Neural foramina are patent. C5-C6: Disc space narrowing. Grade 1 degenerative spondylolisthesis. Central disc osteophyte complex. Mild central canal stenosis. Facet degeneration bilaterally. Neural foramina are patent. C6-C7: No disc herniation. Facet degeneration on the left. Neural foramina patent. Central canal patent. C7-T1: Disc space narrowing. Anterior osteophyte formation. Facet degeneration. Central canal patent. Neural foramina patent. UPPER THORACIC SPINE: At T1-T2, central canal and neural foramina are patent. OTHER: No change in the appearance of the thyroid. CT/CT head/brain wo con IMPRESSION: 1. No acute intracranial abnormality. No hemorrhage or mass effect. 2. No change in the punctate focus of dystrophic calcification in the subcortical white matter of the left frontal lobe, unchanged from prior studies. 3. No acute cervical fracture. Cervical spondylosis. Please see the detailed discussion of the individual levels in the body of this report. Electronically authenticated by: JESSICA COLON Date: 06/17/2024 23:04
--- NOTE | 2024-06-17 21:35 | XR_ITS ---
[address] [address] Patient Name: SYLVIA HANNA MRN: [facility]:[id number] date: 1945 Sex: F Assigned Patient Location: ER Current Patient Location: ER Accession/Order Number: [id number] Exam Date: 06/17/2024 21:48 Report Date: 06/17/2024 23:00 At the request of: ADELINE FLORES Procedure: XR chest 1V EXAMINATION: XR chest 1V, , 06/17/2024 9:48 PM EDT INDICATION: syncope HISTORY: Ordering Provider Reason for Exam: syncope Technologist Note: Additional: COMPARISON: None. TECHNIQUE: Chest x-ray: One view. FINDINGS: No pneumothorax, pleural effusion or focal airspace consolidation. Heart is normal in size. Postmedian sternotomy XR/XR chest 1V IMPRESSION: No acute cardiopulmonary process. Electronically authenticated by: ALEXSANDER HARDING Date: 06/17/2024 23:00
[2024-06-17 21:45] LABS: Basophils Percent Auto 0.1 % (0.2-2.0); Eosinophils Absolute Auto 0.1 10^3/uL (0.0-0.7); Eosinophils Percent Auto 0.8 % (0.9-7.0); Hematocrit 38.8 % (36.0-48.0); Hemoglobin 12.4 g/dL (12.0-16.0); Immature Granulocytes Abs Auto 0.02 10^3/uL (0.00-0.03); Immature Granulocytes Pct Auto 0.3 % (0.0-0.5); Mean Corpuscular Hemoglobin 28.7 pg (26.7-34.0); Mean Corpuscular Volume 89.8 fL (81.0-99.0); Mean Platelet Volume 10.6 fL (9.5-13.5); Monocytes Absolute Auto 0.6 10^3/uL (0.3-0.8); Monocytes Percent Auto 8.6 % (1.7-12.0); Neutrophils Absolute Auto 5.7 10^3/uL (1.4-6.5); Neutrophils Percent Auto 77.2 % (43.0-75.0); Platelet Count 198 10^3/uL (150-450); Red Blood Count 4.32 10^6/uL (4.20-5.40); Red Cell Distribution Width 12.6 % (11.0-15.0); White Blood Count 7.4 10^3/uL (4.0-11.0)
[2024-06-17 22:03] LABS: Anion Gap 15.1; BUN Creatinine Ratio 19.6; Calcium 8.6 mg/dL (8.5-10.1); Carbon Dioxide 24.9 mmol/L (21.0-32.0); Chloride 100 mmol/L (98-107); Estimated GFR (African America 32 (>=60); Estimated GFR (Non-African Ame 26 (>=60); Glucose 137 mg/dL (74-106); Sodium 136 mmol/L (136-145); Troponin I High Sensitivity 6.6 pg/mL (4.0-51.3)
--- OUTSIDE RECORDS SUMMARY | 2024-06-17 23:52 | XMS_ITS | CCD ---
Author Organization [facility] ion Partnership [facility] Care Team Providers Care Investments Manager Name Role Phone Tao Rooney MD Primary Care Provider [phone] SCOT ROGERS Primary Care Physician Tao Rooney MD Primary Care Provider [phone] NICOLETTE RICE Attending UnavailARELIS Rivera Referring Unavailable TAO ROONEY Primary Care Unavailable Tao Rooney MD Primary Care Provider [phone] TAO HEBERT Primary Care Unavailable [...] karen Sanchez, DR BURGER Primary Care Unavailable MOUKAHEMRILO, DR LANCASTER Admitting Unavailable MOUKARBEL, DR LANCASTER [...] Primary Care Unavailable SCOT ROGERS Consulting Unavailable USE, SCOT Admitting Unavailable SALAM, Morgan Admitting Unavailable [...] INOPHEN] Drug Allergy 05-18-20 14 GI Upset [facility] Work Phone: (11 sources) Promethazine; Translations: [PROMETHAZINE HCL] Drug Allergy 10-11-20 05 Other: See Comments [facility] (3 sources) Levamisole; Translations: [Phenergan] Drug Allergy 04-07-20 13 [facility] Repository (1 source) Morphine Drug Allergy [facility] Repository (1 source) No Known Medication Allergies; Translations: [No Known Medication Allergies] Propensity to adverse reactions (disorder) [facility] Repository (2 sources) Promethazine; Translations: [promethazine] Drug Allergy 08-12-20 22 Loss of consciousness (finding) [facility] Medications Current Medications Medication Drug Class(es) [...] 04-08-2023 Episodic Other aftercare (1 source) 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 Normal [facility] Telephoneon 04-06-2024 Telephone [id number] Sylvia Herrera 1945 F Date Provider Department Albert [facility] 04/06/2024 ANISHA JACOBS [facility] Family History Family history unknown: Yes [facility] Orders Onlyon 03-18-2024 Orders Only [id number] Sylvia Herrera Erin 1945 Provider Department Center 03/18/2024 MITZY BRYANT GUS JORDAN [facility] Family History Family history unknown: Yes [facility] Office Visiton 02-03-2024 Follow-up visit [id number] Sylvia Herrera Erin 1945 Date Provider Department Center 02/03/2024 ANISHA JACOBS JULIAN [facility] Family History Family history unknown: Yes Level of Service:12572 GA OFFICE/OUTPATIENT ESTABLISHED MOD MDM 30 MIN [facility] Office Visiton 11-12-2023 Follow-up visit [id number] Sylvia Herrear Erin 1945 Provider Department Center 11/12/2023 NAISHA JACOBS JULIAN [facility] Family History Family history unknown: Yes Level of Service:80790 GA OFFICE/OUTPATIENT ESTABLISHED MOD MDM 30-39 MIN [facility] 36on 10-26-2023 36 Her tacrolimus level from 10/16/2023 was 1.4. still very low. I believe she is currently taking tacrolimus (Prograf) 0.5 mg bid. I want her to increase to 1 mg bid and obtain another trough level in 2-3 weeks. [facility] Telephoneon 10-26-2023 Telephone [id number] Sylvia Herrera Erin 1945 Provider Department Center 10/26/2023 ANISHA JACOBS JULIAN [facility] Family History Family history unknown: Yes [facility] Orders Onlyon 09-30-2023 Orders Only [id number] Sylvia Herrera Erin 1945 Provider Department Center 09/30/2023 SHELBI DENNY JULIAN [facility] Family History Family history unknown: Yes [facility] 36on 08-15-2023 36 Her Tacrolimus troug h level (taken on 08/06/2023, reported 08/14/2023) was low at 1.4. She is currently taking tacrolimus 0.5 mg once a day. Please have her increase it to 0.5 mg twice a day and have a repeat Tacrolimus trough level in 2 weeks. Her target level is around 5-10 ng/ml. Normal [facility] Telephoneon 08-15-2023 Telephone [id number] Sylvia Herrera 1945 F Date Provider Department Center 08/15/2023 ANISHA JACOBS Family History Family history unknown: Yes Normal [facility] Office Visiton 08-07-2023 Follow-up visit [id number] Sylvia Herrera 1945 F Date Provider Department Center 08/07/2023 ANISHA JACOBS Family History Family history unknown: Yes Level of Service:65886 GA OFFICE/OUTPATIENT ESTABLISHED MOD MDM 30-39 MIN Reason for Visit and Comments: Follow-up [436947] - 6 mo f/u no stress test or tacrolimus result as of 08/06 - does she plan on having stress test? Normal [facility] BMPon 04-08-2023 Creatinine [Mass/Vol] 1.3 mg/dL Normal 0.5-1.3 [facility] Comment on above: Performed By: #### 1 [id number], 0794374, [id number] ####[facility] [address] [place] [address] Urea nitrogen [Mass/Vol] 36 mg/dL High 5-21 [facility] Comment on above: Performed By: #### 1 1658031, [id number], [id number] ####[facility] [address] [place] [address] Urea nitrogen/Creatinine [Mass ratio] 28 No Units High 10-20 [facility] Comment on above: Performed By: #### 1 1900257, 8094832, [id number] ####[facility] [address] [place] [address] Anion gap [Moles/Vol] 11 mmol/L Normal 6-16 [facility] Comment on above: Performed By: #### 1 [id number], 7967687, 24841687 ####[facility] [address] [place] [address] Calcium [Mass/Vol] 8.6 mg/dL Low 8.9-11.1 [facility] Comment on above: Performed By: #### 1 1526282, 7659981, [id number] ####[facility] [address] [address] Chloride [Moles/Vol] 99 mmol/L Low 101-111 [facility] Comment on above: Performed By: #### 1 4150930, 7535369, [id number] ####[facility] [address] [place] [address] CO2 [Moles/Vol] 25 mmol/L Normal 21-31 [facility] Comment on above: Performed By: #### 1 9959337, 8482221, 45579855 ####[facility] [address] [place] [address] Glucose [Mass/Vol] 124 mg/dL Normal 55-199 [facility] Comment on above: Result Comment: If t his glucose result represents a fasting glucose, interpretation should refer to the following reference range: 55-99 mg/dL Performed By: #### 1 5007831, 8368921, [id number] ####[facility] [address] [place] [address] Potassium [Moles/Vol] 4.1 mmol/L Normal 3.5-5.3 [facility] Comment on above: Performed By: #### 1 6708876, 8442982, 43768673 ####[facility] [address] [place] [address] Sodium [Moles/Vol] 131 mmol/L Low 135-145 [facility] Comment on above: Performed By: #### 1 1477393, 4687718, 62110273 ####[facility] [address] [place] [address] CHEMISTRYOrdered By: SYSTEM SYSTEM on 04-08-2023 Anion gap [Moles/Vol] 11 mmol/L Normal 6 - 16 mEq/L F [facility] Remisol Calcium [Mass/Vol] 8.6 mg/dL Low 8.9 - 11. 1 mg/dL [facility] Chloride [Moles/Vol] 99 mmol/L Low 101 - 1 11 mmol/L [facility] CO2 [Moles/Vol] 25 mmol/L Normal 21 - 31 mmol/L [facility] Creatinine [Mass/Vol] 1.3 mg/dL Normal 0.5 - 1.3 mg/dL [facility] GFR/1.73 sq M.predicted among non-blacks MDRD (S/P/Bld) [Vol rate/Area] 42 mL/min/1.73 m2 Low >=59mL/min/1 .73 m2 [facility] Chem S Glucose [Mass/Vol] 124 mg/dL Normal 55 - 199 mg/dL [facility] Potassium [Moles/Vol] 4.1 mmol/L Normal 3.5 - 5.3 mmol/L [facility] Remisol Sodium [Moles/Vol] 131 mmol/L Low 135 - 145 mmol/L [facility] Troponin I.cardiac [Mass/Vol] 11.10 pg/mL Normal 10.10 - 27.10 pg/mL [facility] Remisol Urea nitrogen [Mass/Vol] 36 mg/dL High 5 - 21 mg/dL [facility] Remisol Urea nitrogen/Creatinine [Mass ratio] 28 mg/mg High 10 - 20 [facility] Troponin I.cardiac [Mass/Vol] 9.70 pg/mL Low 10.10 - 27.10 pg/mL [facility] Remisol Consent for Treatmenton Consent for Treatment [id number] #1.00CD:127 Normal [facility] Discharge Instructionson Discharge Instructions [id number]#1 .00CD:127 Normal [facility] ED Clinical Summaryon 2022 ED Clinical Summary [place] [id number] ED Clinical Summary Person Information Name: SYLVIA HERRERA Herb/[facility] Age: 77 Years : 1945 Sex: Female Language: Serbian PCP: SCOT ROGERS CNP Marital Status: Single [...] 08:56:01 04/08/2023 08:56:01 04/08/2023 08:56:01 AD[address]: [address] [facility] [phone] PHYS DOC NOTES: MEDICAL INFORMATION: Prescriptions Given: [...] With: Address: When: SCOT ROGERS [address], [place] [address] [phone] Business (1) In 3 days DIAGNOSIS: Chest pain; Hyponatremia Normal [facility] ED Note-Physicianon 04-08-20 ED Note-Physician Basic Information Time Seen: Richard aC DO 04/07/2023 21:20 Chief Complaint pt. presents [...] and Complexity of Problems Differential Diagnosis: [] [facility] Data External documents reviewed: N/A My [...] 6 Hr. (more content not included)... Normal [facility] Comment on above: Result Comment: Elec [...] Follow these instructions at home: ? Take rzhw-lhg-czbqynb and prescription medicines only as told by [...] Reviewed: 05/29/2022 Elsevier Patient Education ? 2022 [employer] Pulmonary Medicine Nonspecific Chest Pain, Adult [...] health care (more content not included)... Normal [facility] ED Patient Summaryon 023 ED Patient Summary [place] [id number] Patient Discharge Instructions Person Information Name: SYLVIA HERRERA Age: 77 Years Arrival Date: 04/07/2023 21:18:46 Discharge Diagnosis: Chest pain; Hyponatremia Primary Care Physician: SCOT ROGERS CNP Provider Information Primary Provider: Richard Ca DO Advanced Grounds Foreman:None The exam and treatment you received in the Emergency Department were for an urgent problem and are not intended as complete care. It is important that you follow up with a doctor, nurse practitioner, or physician?s certified surgical tech/first assistant for ongoing care. If your symptoms [...] Follow-up Instructions: With: Address: When: SCOT ROGERS [address] [place] [phone] Business (1) In 3 days In the event that this physician does not participate in your insurance network, please consult with your insurance company to find a nearby participating provider. Patient Education Materials: Hyponatremia; Nonspecific Chest Pain, Adult A MESSAGE TO ALL PATIENTS REGARDING OPIOIDS PRESCRIPTION OPIOIDS: WHAT YOU NEED TO KNOW Prescription opioids can be used to help relieve weshmmxa-nf-ewvhjf pain and are often prescribed following a [...] be struggling with addiction, tell your health animal care provider and ask for guidance or call [facility]?S National Helpline at [phone]. v Source: [place] Departmen (more content not included)... Normal [facility] EMS Documentationon 04-08-20 EMS Documentation Please click on link to see report [id number] CiX5+prnDQolQUJDcGRmI [id number] x2MXhbHHF6TzWzGYwlOTH b EAJ3RQYwTXdcNu2EPHT3X jV3Md0ZaG4dPNSvkcQxHC USY37cVFuzCcK8Af8GNNL 9ERu7Zo8+ICAg ICAgICAgICAgICAgICAgI CAgICAgICAgICAgICAgIC AgICAgICAgICAgICAgICA gICAgICAgICAg ICAgICAgICAgICAgICAgI HIqQPMXLvLuGK4ubb1JMR o6ufPfCBk0SNL3MCznJSQ wMDAwMDMyIDAw TGQfTG0QYhSlLLCtEIS1V UmfTXCvZVOsvt0YXUXjBV XaJXF0GJSlBKQhWICiPHf wMDAwMDAxODM3 VURhGEGaKH2XOoCoEHLfH WU9XnpfFMNyJAEqnp5IDZ AwMDAwMjIyOCAwMDAwMCB uDQowMDAwMDAy QpkeQRTaFKCvIV2BZdCvQ DAwMDIzNTYgMDAwMDAgbg 2UXLMgROAuCjC9DxJdENH wMCBuDQowMDAw IXUlWLQcYBEtRNIfDV8VL qJaCNYeHUT0LDoyYDQnDW Ejdo0ANYMdBFQnSgm5QQG wMDAwMCBuDQow IKCgQDIeGmM0DHHxHHRvW L6GIuToQCMjPGR0RJTuSU PjVHZefc5MZGBtUDTgLLX 5NSAwMDAwMCBu VYmgANJeKYD6IwVeGMBsQ EGdBH8DJsOmUDUjBIH0Mk afKKQlAZKyui3NPFEvTQR wUOw7MEQjOFOd TZQrKFjsWHRxMGU5RwH8V NCzHICaZJ8CSnToAJQfRD W6WbltQRVnHWDspg1BWAR wMDAwNTgwNSAw VFYnLFUrYWfvJOCoUNC0V MO2QKQjFWXsKX0QQrVlCW FoIPM1EcdkSGAeZDXxju1 KMDAwMDAwNjc1 MyAwMDAwMCBuDQowMDAwM WS8RFV6GISsRAViPP4HMd AwMDAwMDczOTYgMDAwMDA pwx3VEJMuGYQv OTkyMiAwMDAwMCBuDQowM LMqGBJ7JGG1RVBoQHTpXG 9CYiBkJErcNYYVOaq4Ht9 JRCBbPENEMUFD E1UjGEUONfvCWIE1QFA7C Ih0HYHjTFteLqW0Mls2Vz HFGLF5Nrn2SOfRGMZ7LLq 8MWJQD1O2AXfY NTZDRTA+ABwmFYSdobE8G sH1GmtsRx1ttGO5SMDtTk auD5b8PUJqOzokT034tvM lIChXZUpYRnhO KiXgVsO1pBZEVVSRO2V2C 41aZ53oFE7PWUptQ7g6Ii rQCAU1JYbMbBrBJuDlC73 pQOgiFGUzI3Wc HnvpuUxwGXR8S2RvxTW0C 4nln80dMTCOIAcOq6njFZ V0X83GMuuECdsFhcOBJ0o 4mNZWxWW8Biad I8hnBqJxTJHCNIKbJxTmV hnIB5APF7rWTd7yCj8+IC AgICAgICAgICAgICAgICA gICAgICAgICAg ICAgICAgICAgICAgICAgI CAgICAgICAgICAgICAgIC AgICAgICAgICAgICAgICA gICAgICAgICAg ICAgICAgICAgICAgICAgI CAgICAgICAgICAgICAgIC AgICAgICAgICAgICAgICA gICAgICAgICAg ICAgICAgICAgICAgICAgI CAgICAgICAgICAgICAgIC AgICAgICAgICAgICAgICA gICAgICAgICAg ICAgICAgICAgICAgICAgI CAgICAgICAgICAgICAgIC AgICAgICAgICAgICAgICA gICAgICAgICAg ICAgICAgICAgICAgICAgI CAgICAgICAgICAgICAgIC AgICAgICAgICAgICAgICA gICAgICAgICAg ICAgICAgICAgICAgICAgI CAgICAgICAgICAgICAgIC AgICAgICAgICAgICAgICA gICAgICAgICAg ICAgICAgICAgICAgICAgI CAgICAgICAgICAgICAgIC AgICAgICAgICAgICAgICA gICAgICAgICAg DWVNPyS7PRY4mXKoWy9XS V5FSJGWA7YPVk3GOJYjDM 3rme8ZAOiWU30cbUDwVOS hGCJvXSBPUk7T yMYpLNV0fP0fJJw3YPSaH wpeCpy3PJ6HB788rKskjp AcVPKyDATYBr2MTDedIG1 oVOJcCWZmJy7w ZQovUGFnZXMgMiAwIFIKL 5Z7sVPtQ5KnkHSau3aCGv 0XLfNgJP7iff0VMTb4TIX ex3EeSYq3USzj BtexrIDmKD3KwLY0ISNsQ 33pZJliQKFvR8LsYRHxLL cmWbC2Azp+Uq5Gv2XvVNL jIIm8bMHjIMEl YGDLYFBgYLjCAyLhQAEKU omxJeX7WiRvZOZr0IUqJO El54ZWJrDxKvWsHWqyEkY nvCET1EzlMtYL DZsc5MnNEbGOQuJUxbZ0Q ZjeFXKTFskKUBk9KkJwVj eC5YkWyhOg3H0EEYOXUny MGeXtVUI2fqGu xC2QLJ7wq4RpQChKXzmmI KPvXjlAJma7Cq2Jx375KG 50cyBbMjQgMCBSXQovTWV ipOAQf0uyOxMh SZB0ADGbRxcuQJjtNHShQ G25VQFfDDZIKc3YARHkiQ YqZICjFJeLJ2lOYjuyL7V cZTyDM8waGwD3 IDggMCBSCj4+Cj4+Ci9Ue BXlON0GTJenNy3+DQplbm XzXllGFb9CFWDoQL2wfq8 XISbZX0UYt0gc NiHvOHA4FDDsVyeiWCcuP vyjtIYrUH3PcMH2HRMiM6 4tUDmsGCJwW8DzSYo2Qx7 SZXNvdXJjZXMg LMiKU6bYByumN2GgCNlHY 3afMpN7ADW2GBQsStl+Pg o+VitaN5ZjzIzzULEuEu5 ybQovVHlwZSAv TV1hldPtwSt+Os8Gi6WhF FQoSNp5vHNS7XTc8BJiQM YeBMW7EMUudrPDEHut7Fv XyOPlMtCztDAz Q2npNUEs96yMDBWxEumNl 4ruUmGd8NjHHK+KJ9AVeo OaPyVpux6QWBlkwcXhvLP zVR8ANoQqRQ6q wv9QXWx0YVEzm3EsLEc0M BgwTl1fB53uyd6efXxeY7 EgMQo+Pb0DOI1fm0LxSBj TMkCrGDLta4Sw KTl4HBbhFw1aU60gnf9zd UjhD0NvUFagTNTxOPwnOF ogMAovTFcgMQovTUwgNAo qM4ZdbFH8GHfs H6ShRBk+Sj6UIW4iy3XlH PvUZjHkDSAht1IeWTx0PU lbXo6mA66jjp2lhCfbF5K bZG7iWxAbTtye TEMgMAovTEogMAovTFcgM OofUXntQBnqC2UztKL3EB riA4TkBG1bEvIuSpb+Pg0 CJZ8fj0JhRMbU GqJkXZLww1ZeHHj5QBycO x0dU63sob9jdIpbK2TuKJ 4wODIzNQo+Gd8WZQ4mg3W qDQoNCjEzIDAg g9DoWLl7XAndQk4qT65rb x4idUjpH8CwXU9oOQM6FI ovTEMgMAovTEogMAovTFc gMQovTUwgNAov J5MljBD6YAxiR4KtQT2oN TA5OAo+Yc0UAC9mm2YhEJ bNTcJ9EQVzc2BtDVg7PKw uKPD0wck0ZOmd Wif6ZQUoZHZgPR90ZURzI Db4Lm9PU0NuqDMrla1JpQ SbOVYJE0WoHZBqzmpxTKi UH1UdbW2bT9Ij K4FdP4JyeuklXXJVRrsgL 78auzXqNLoaHYB5CIMyPF J0GL2MX0R1eEKaWQQpdIB 3PXs4ghSnGHox GyZvV7Pxr12wLElRR7OhG HyoQpp1KdQkDcu1MlOuXo e4A15FE7XaBJecBdj5XmM qJmf2NlAsKta2 M18WR9ZanGJmxjAxBTVqT HldZvGqO3Lnz25TmDFjEK BBQ88lBEy+PtsaK0dwZQh gL6S9iKEeMjt+ GbitGEjdAOBeOOW0nQSiu go+Kl1ECS5ep3CdCAhZFc C3WLTfi1YdBSb0ZWakXJV 2vyu2KQpzXdo4 JSIiLUClDX74UHIaIBf2U j3WK0TrsBMgdw4TkQEjMP CCN9PfWYMqifszDNqMT1Y xlG9wJ2AbJ0Wz P9DqfuatLGWMNlidR18ro dEbTSc8YYG4EsE5HHJ8Uf 55Ka8IN1G7hHKqFOKcvXZ 2NMh2igJzQVsa VuIiC1Sda59tUAiCN5Xjp W7szoJgEK46CIcsEJ8hHA jcJMqsCCYcWw5BgpKjUIN gWzAgMSAwIDFd Sl3AhI9kcYjumjY9hXDnY quzToFiC7Geg80eBWv2TD vkJfAbFjOfSUS0CWGkNWL 9KUKbNWR1NWdq NxRwFrVvVVW7NSBbKYX4F GGrKNH1YIvnJE3yDZxdEL xqKAVdXd2ZsQ9rxDnsivJ 5cGUgMgovTiAx Cj4+Gqx4Rd4MZZJkLS34D lagSH78TxvpLL85TgsqEk 3FVFSjTL93BaThHJ72FbW tOB82RqUhTc1K g33miW0jVvMdOF4PM2D6z eU1aU3yBUstFJQjFk0JGJ VWBz4oOq7+Dh1OjMXsoF1 nVHlwZSAyCj4+ Ln2QvTKrKM5MGNR7BLZgJ j4+BTegoeUxXdfJQl9XMY ZhPJEdYzfWVsq2Zu4RBRD tEd9aaHYwGLeL LB7NT8FkN93dWWdZF1Rmk 1AoxcUtqkZUh688pvBgFR poGPQPTDcrJU8em4Duuql nZ0ivYB50yXT0 RVtLS2S6NrQ7kLCzD8O9d YAbEn1Qu2AlhDKnQFXcNK fuEDFMEd0JxYGrLN0Kn43 0Cj4+DQplbmRv RbwXCn4ACXpdNHWyDuvQA kt9Ey4TXPGdIp1vhXGaUL nLHL1CA5MmU36oKDlDY0Z IRBR5k6OegNmf Wd0yNTvNY86rQWYfsQ2iB HyHMIYvcOh8oJdDG8SfF2 fuiAF9ALdKKH6k (more content not included)... Normal [facility] EMS Documentation Please click on link to see report Normal [facility] Comment on above: Result Comment: Miss laura Attachment - attachment exceeds size limitation [id number] Can be viewed in source system EMS Documentation [id number]# 1.00CD:127 [facility] Monitor Recordon 04-08-2023 Monitor Record [id number]# 1.00CD:127 [facility] Progress Note-Nurseon 2022 Progress Note-Nurse Pt. requesting food, Dr. Ca aware. Pt. given food per verbal order from Dr. Ca. [facility] Troponin 0 Hr.on 04-08-2023 Troponin I.cardiac [Mass/Vol] 9.20 pg/mL Low 10.10-27.10 [facility] Comment on above: Result Comment: The 95% CI (Confidence Interval) PPV (Positive Predictive Value) for myocardial infarction in females is 38 pg/mL, in males 51 pg/mL. The results should be used in conjunction with clinical conditions of myocardial infarction. (Access High Sensitivity Troponin I Instructions For Use, [employer]erm[employer] Thadde[employer], July 2018) Performed By: #### 2 [id number], [id number], 0351757, 8984182, 57353464, [id number] ####[facility] [address] [place] [address] Troponin 3 Hr.on 04-08-2023 Troponin I.cardiac [Mass/Vol] 9.70 pg/mL Low 10.10-27.10 [facility] Comment on above: Result Comment: The 95% CI (Confidence Interval) PPV (Positive Predictive Value) for myocardial infarction in females is 38 pg/mL, in males 51 pg/mL. The results should be used in conjunction with clinical conditions of myocardial infarction. (Access High Sensitivity Troponin I Instructions For Use, [employer], July 2018) Performed By: #### 1 [id number] ####[facility] [address] [place] [address] Troponin 6 Hr.on 04-08-2023 Troponin I.cardiac [Mass/Vol] 11.10 pg/mL Normal 10.10-27.10 [facility] Comment on above: Result Comment: The 95% CI (Confidence Interval) PPV (Positive Predictive Value) for myocardial infarction in females is 38 pg/mL, in males 51 pg/mL. The results should be used in conjunction with clinical conditions of myocardial infarction. (AppMyDay High Sensitivity Troponin I Instructions For Use, [employer], July 2018) Performed By: #### 1 [id number], 8216033, [id number] ####[facility] [address] [place] [address] XR Chest Single Viewon 04-08 XR Chest [...] mGy = na DAP = na Normal [facility] eGFRon 04-08-2023 GFR/1.73 sq M.predicted among non-blacks MDRD (S/P/Bld) [Vol rate/Area] 42 mL/min/1.73 m2 Low >=59 [facility] Comment on above: Order Comment: Order added by Discern Expert. Result Comment: Matchbook Assembler brennan kidney disease could be indicated at eGFR's of less than 60 mL/min/1.73m2. Kidney failure is indicated at less than 15 mL/min/1.73m2. Performed By: #### 1 0855042, 9866081, [id number] ####[place] [address] [place] [address] Auto Diffon 04-07-2023 Basophils/100 WBC (Bld) 0.4 % Normal 0.0-2.0 [facility] Comment on above: Order Comment: Order Added by Discern Expert. Performed By: #### 2 568009, 16603516, 3828774, 1503667, 84261691, 98422083 ####[address] [address] Basophils/Leukocytes Auto (Bld) [Pure # fraction] 0.0 E9/L Normal 0.0-0.2 [facility] Comment on above: Order Comment: Order Added by Discern Expert. Performed By: #### 2 518242, 74056632, 8004812, 0440989, 39087917, 43542802 ####[place] [address] [place] [address] Eosinophils/100 WBC (Bld) 3.0 % Normal 0.0-8.0 [facility] Comment on above: Order Comment: Order Added by Discern Expert. Performed By: #### 2 326139, 61900230, 0853759, 6367600, 02697113, 71948829 ####[address] [address] Eosinophils/Leukocytes Auto (Bld) [Pure # fraction] 0.2 E9/L Normal 0.0-0.5 [facility] Comment on above: Order Comment: Order Added by Discern Expert. Performed By: #### 2 502099, 31056104, 9427646, 2445759, 18684602, 22411291 ####[place] [address] [place] [address] Lymphocytes/100 WBC (Bld) 15.4 % Normal 14.0-50.0 [facility] Comment on above: Order Comment: Order Added by Discern Expert. Performed By: #### 2 519343, 45230131, 2382156, 5524219, 31343790, 11249516 ####[address] [address] Lymphocytes/Leukocytes Auto (Bld) [Pure # fraction] 1.1 E9/L Normal 1.0-4.0 [facility] Comment on above: Order Comment: Order Added by Discern Expert. Performed By: #### 2 013391, 06760027, 6430504, 2638782, 14155154, 51759658 ####[address] [address] Monocytes/100 WBC (Bld) 12.8 % Normal 4.0-14.0 [facility] Comment on above: Order Comment: Order Added by Discern Expert. Performed By: #### 2 951308, 18253754, 5843855, 2681521, 38914777, 86408608 ####[address] [address] Monocytes/Leukocytes Auto (Bld) [Pure # fraction] 0.9 E9/L Normal 0.2-1.0 [facility] Comment on above: Order Comment: Order Added by Discern Expert. Performed By: #### 2 457164, 68805316, 2626181, 5491396, 34720088, 76676949 ####[address] [address] Neutrophils/100 WBC (Bld) 68.4 % Normal 36.0-75.0 [facility] Comment on above: Order Comment: Order Added by Discern Expert. Performed By: #### 2 940898, 50306093, 8116863, 9839550, 72616679, 97306154 ####[address] [address] Neutrophils/Leukocytes Auto (Bld) [Pure # fraction] 5.0 E9/L Normal 2.0-7.5 [facility] Comment on above: Order Comment: Order Added by Discern Expert. Performed By: #### 2 772856, [id number], 0217197, 9633772, 64693430, [id number] ####[facility] [address] [place] [address] BMPon 04-07-2023 Creatinine [Mass/Vol] 1.5 mg/dL High 0.5-1.3 [facility] Comment on above: Performed By: #### 2 176963, 75683753, 1846280, 0953421, 65656871, 87772600 ####[facility] [address] [place] [address] Urea nitrogen [Mass/Vol] 40 mg/dL High 5-21 [facility] Comment on above: Performed By: #### 2 688523, 76970373, 3813903, 3056166, 27570494, 36933347 ####[facility] [address] [place] [address] Urea nitrogen/Creatinine [Mass ratio] 27 No Units High 10-20 [facility] Comment on above: Performed By: #### 2 806407, 31280913, 0241288, 8253616, 71055577, 74097307 ####[facility] [address] [place] [address] Anion gap [Moles/Vol] 11 mmol/L Normal 6-16 [facility] Comment on above: Performed By: #### 2 348891, 39697684, 8524660, 2040093, 44762072, 18739007 ####[facility] [address] [place] [address] Calcium [Mass/Vol] 8.6 mg/dL Low 8.9-11.1 [facility] Comment on above: Performed By: #### 2 379368, 06500552, 1370226, 1060233, 51746394, 14942306 ####[facility] [address] [place] [address] Chloride [Moles/Vol] 96 mmol/L Low 101-111 [facility] Comment on above: Performed By: #### 2 313865, 92990042, 0113252, 7236928, 47641056, 04395707 ####[facility] [address] [place] [address] CO2 [Moles/Vol] 24 mmol/L Normal 21-31 [facility] Comment on above: Performed By: #### 2 255867, 81769258, 6950437, 1150437, 08925907, 27551004 ####[facility] [address] [place] [address] Glucose [Mass/Vol] 139 mg/dL Normal 55-199 [facility] Comment on above: Result Comment: If t his glucose result represents a fasting glucose, interpretation should refer to the following reference range: 55-99 mg/dL Performed By: #### 2 023820, 75161376, 5503227, 2613127, 99092778, 93375159 ####[facility] [address] [place] [address] Potassium [Moles/Vol] 4.4 mmol/L Normal 3.5-5.3 [facility] Comment on above: Performed By: #### 2 488615, 36094061, 1550917, 5237202, 65680351, 15913472 ####[facility] [address] [place] [address] Sodium [Moles/Vol] 127 mmol/L Low 135-145 [facility] Comment on above: Performed By: #### 2 117334, 42487297, 5435031, 5409809, 79372812, 26333381 ####[facility] [address] [place] [address] CBC w/ Auto Diffon 3 Erythrocyte distribution width (RBC) [Ratio] 13.0 % Normal 10.9-14.2 [facility] Comment on above: Performed By: #### 2 321500, [id number], 2941001, 0353037, [id number], [id number] ####[facility] [address] [place] [address] Hematocrit (Bld) [Volume fraction] 38.4 % Normal 34.0-46.0 [facility] Comment on above: Performed By: #### 2 463416, 49938769, 6379342, 8931485, 04505463, 99385748 ####[address] [address] Hemoglobin (Bld) [Mass/Vol] 12.6 g/dL Normal 12.0-16.0 [facility] Comment on above: Performed By: #### 2 774530, 78791305, 7064239, 4585055, 23353305, 50066218 ####[address] [address] MCH (RBC) [Entitic mass] 27.9 pg Normal 27.0-34.0 [facility] Comment on above: Performed By: #### 2 314946, 38037897, 6790488, 3562737, 18375635, 40096886 ####[address] [address] MCHC (RBC) [Mass/Vol] 32.7 g/dL Normal 31.4-36.0 [facility] Comment on above: Performed By: #### 2 473851, 18437989, 9965873, 8206585, 09168780, 81136475 ####[address] [address] MCV (RBC) [Entitic vol] 85.3 fL Normal 80.0-100.0 [facility] Comment on above: Performed By: #### 2 557505, 34921517, 1951109, 0449791, 76190000, 66015785 ####[facility] [address] [place] [address] Platelet mean volume (Bld) [Entitic vol] 7.3 fL Normal 6.4-10.8 [facility] Comment on above: Performed By: #### 2 136865, 71279690, 1980890, 1440451, 10225457, 99085756 ####[facility] [address] [place] [address] Platelets (Bld) [#/Vol] 167.0 E9/L Normal 150.0-500.0 [facility] Comment on above: Performed By: #### 2 635526, 36602851, 9006396, 6846392, 34589038, 63658652 ####[facility] [address] [place] [address] RBC (Bld) [#/Vol] 4.5 E12/L Normal 4.3-5.9 [facility] Comment on above: Performed By: #### 2 087809, 17056017, 4222176, 6236289, 75009757, 25177399 ####[facility] [address] [place] [address] WBC corrected for nucl RBC Auto (Bld) [#/Vol] 7.3 E9/L Normal 4.0-11.0 [facility] Comment on above: Performed By: #### 2 352296, 63864460, 3835055, 6882457, 86558545, 82096268 ####[facility] [address] [place] [address] CHEMISTRYOrdered By: SYSTEM SYSTEM on 04-07-2023 Anion [...] Coag (PPP) [Time] 27.1 second(s) Normal 25.1-36.5 [facility] Comment on above: Result Comment: Para [...] the same coagulation reagent and instrumentation as [facility]. Currently there are no coagulation studies available worldwide for children to 14 days, and no normal ranges. Heparin therapeutic range (represented by Anti-Factor Xa activity of 0.2 - 0.4 U/mL) corresponds to PTT of 56.6 - 109.0 sec. Performed By: #### 2 371374, 71090587, 3715388, 4315733, 80686734, 91201980 ####[facility] [address] [place] [address] INR Coag (PPP) [Relative time] 1.2 {INR} Invalid Interpretation Code [facility] Comment on above: Result Comment: INR results are specifically intended to assess patients stabilized on long-term Anticoagulation therapy suggested INR?s ?Less Intensive Anticoagulation? 2.0 ? 3.0 Conventional Range 3.0 ? 4.5 Performed By: #### 2 096675, 44337285, 3396538, 8290337, 23639568, 95466050 ####[facility] [address] [place] [address] PT Coag (PPP) [Time] 12.9 second(s) High 9.4-12.5 [facility] Comment on above: Result Comment: 15 [...] the same coagulation reagent and instrumentation as [facility]. Currently there are no coagulation studies available worldwide for children to 14 days, and no normal ranges. Performed By: #### 2 045923, 29247763, 4611233, 7290045, 57285793, 73681618 ####[facility] [address] [place] [address] Pre-Arrival Noteon 3 Pre-Arrival Note Pre-Arrival Summary Name: , YAZMIN Current Date: 04/07/2023 21:19:11 EDT Gender: Female Date of : Age: 77 Pre-Arrival Type: EMS ETA: 04/07/2023 21:15:00 EDT Primary Care Physician: Presenting Problem: chest pain Pre-Arrival User: Natalia Fischer RN Referring Source: Location: Completion Date/Time: 04/07/2023 21:06:00 [facility] Department Pre-Hospital Report Form Vital Signs: Pre-Hospital Report: Treatment in Route: Response to Treatment: Misc. Issues: Normal [facility] eGFRon 04-07-2023 GFR/1.73 sq M.predicted among non-blacks MDRD (S/P/Bld) [Vol rate/Area] 35 mL/min/1.73 m2 Low >=59 [facility] Comment on above: Order Comment: Order added by Discern Expert. Result Comment: [employer]er brennan kidney disease could be indicated at eGFR's of less than 60 mL/min/1.73m2. Kidney failure is indicated at less than 15 mL/min/1.73m2. Performed By: #### 2 787927, 29208483, 8279452, 3423568, 95787918, 43874289 ####[facility] [address] [place] [id number] INFLUENZA A AND B AGon 03-05 INFLUANEGH SEE BELOW Normal [facility] Comment on above: Result Comment: Nega tive for Flu A protein angiten. Infection due to Flu A cannot be ruled out. Flu A angiten in the sample may be below the detection limit of the test. Performed By: #### E RUR #### [facility] [address] [place] [address] Dr. Hardeep Rivera INFLUBNEGH SEE BELOW Normal [facility] Comment on above: Result Comment: Nega tive for Flu B protein antigen. Infection due to Flu B cannot be ruled out. Flu B antigen in the sample may be below the detection limit of the test. Performed By: #### E RUR #### [facility] [address] [place] [address] Dr. Hardeep Rivera INFLUENZA A AG Negative Normal NEGATIVE SEE COMMENT [facility] Comment on above: Performed By: #### E RUR #### [facility] [address] [place] [address] Dr. Hardeep Rivera INFLUENZA B AG Negative Normal NEGATIVE SEE COMMENT [facility] Comment on above: Performed By: #### E RUR #### [facility] [address] [place] [address] Dr. Hardeep Rivera SYMPTOMATIC COVID-19 ANTIGEN on 03-05-2023 EUA Statement SEE BELOW Normal [facility] Comment on above: Result Comment: [...] revoked sooner. Performed By: #### C VDAGS ####[facility] [address] [place] [address]Dr. Hardeep Rivera SARS-CoV-2 (COVID-19) RNA ULICES+probe Ql (Unsp spec) Positive Abnormal NEGATIVE [facility] Comment on above: Performed By: #### C VDAGS ####[facility] [address] [place] [address]DrLaura Rivera FK506 (TACROLIMUS) WHOLE BLO ODon 02-28-2023 Tacrolimus (FK506), Blood 5.8 ng/mL Normal 2.0-20.0 [facility] Comment on above: Result Comment: Trou gh (immediately following transplant) 15.0 . Trough (steady state, 2 weeks or more after transplant): 3.0 - 8.0 . Performed by LC-MS/MS technology. Performed By: #### F K506T ####[facility] [address] [place] [address]Dr. Hardeep Rivera CBC AUTO DIFFon 02-14-2023 BASO # 0.0 103/ul Normal 0.0-0.1 [facility] Comment on above: Performed By: #### RANDALL OLSON #### [facility] [address] [place] [address] Dr. Hardeep Rivera Basophils/100 WBC (Bld) 0.5 % Normal 0.2-2.0 [facility] Comment on above: Performed By: #### RANDALL OLSON #### [facility] [address] [place] [address] Dr. Hardeep Rivera EO # 0.2 103/ul Normal 0.0-0.7 [facility] Comment on above: Performed By: #### RANDALL OLSON #### [facility] [address] [place] [address] Dr. Hardeep Rivera Eosinophils/100 WBC (Bld) 3.5 % Normal 0.9-7.0 [facility] Comment on above: Performed By: #### AKSHAT OLSONICRO #### [facility] [address] [place] [address] Dr. Hardeep Rivera Erythrocyte distribution width (RBC) [Ratio] 12.3 % Normal 11.0-15.0 [facility] Comment on above: Performed By: #### Deedee PINON UMICRO #### [facility] [address] [place] [address] Dr. Hardeep Rivera Hematocrit (Bld) [Volume fraction] 38.7 % Normal 36.0-48.0 [facility] Comment on above: Performed By: #### Deedee PINON UMICRO #### [facility] [address] [place] [address] Dr. Hardeep Rivera Hemoglobin (Bld) [Mass/Vol] 12.6 g/dL Normal 12.0-16.0 [facility] Comment on above: Performed By: #### HARI OLSONRO #### [facility] [address] [place] [address] Dr. Hardeep Rivera IG # 0.03 10e3/ul Normal 0.00-0.03 [facility] Comment on above: Performed By: #### AKSHAT OLSONICRO #### [facility] [address] [place] [address] Dr. Hardeep Rivera IG % 0.5 % Normal 0.0-0.5 [facility] Comment on above: Performed By: #### HARI OLSONRO #### [facility] [address] [place] [address] Dr. Hardeep Rivera LYMPH # 0.8 103/ul Critically low 1.2-3.8 [facility] Comment on above: Performed By: #### AKSHAT OLSONICRO #### [facility] [address] [place] [address] Dr. Hardeep Rivera Lymphocytes/100 WBC (Bld) 13.2 % Critically low 20.5-60.0 [facility] Comment on above: Performed By: #### HARI OLSONRO #### [facility] [address] [place] [address] Dr. Hardeep Rivera MANUAL DIFF REQ NO Normal The [facility] Comment on above: Performed By: #### AKSHAT OLSONICRO #### [facility] [address] [place] [address] Dr. Hardeep Rivera MCH (RBC) [Entitic mass] 28.3 pg Normal 26.7-34.0 [facility] Comment on above: Performed By: #### Deedee PINON UMICRO #### [facility] [address] [place] [address] Dr. Hardeep Rivera MCHC (RBC) [Mass/Vol] 32.6 g/dL Normal 29.9-35.2 [facility] Comment on above: Performed By: #### Deedee PINON UMICRO #### [facility] [address] [place] [address] Dr. Hardeep Rivera MCV (RBC) [Entitic vol] 87.0 fL Normal 81.0-99.0 [facility] Comment on above: Performed By: #### Deedee PINON UMICRO #### [facility] [address] [place] [address] Dr. Hardeep Rivera MONO # 0.8 103/ul Normal 0.3-0.8 [facility] Comment on above: Performed By: #### Deedee PINON UMICRO #### [facility] [address] [place] [address] Dr. Hardeep Rivera Monocytes/100 WBC (Bld) 12.9 % Critically high 1.7-12.0 [facility] Comment on above: Performed By: #### Deedee PINON UMICRO #### [facility] [address] [place] [address] Dr. Hardeep Rivera NEUT # 4.4 103/ul Normal 1.4-6.5 [facility] Comment on above: Performed By: #### Deedee PINON UMICRO #### [facility] [address] [place] [address] Dr. Hardeep Rivera Neutrophils/100 WBC (Bld) 69.4 % Normal 43.0-75.0 [facility] Comment on above: Performed By: #### Deedee PINON, UMICRO #### [facility] [address] [place], [place] [address] Dr. Hardeep Rivera Platelet mean volume (Bld) [Entitic vol] 9.0 fL Critically low 9.5-13.5 [facility] Comment on above: Performed By: #### Deedee PINON, UMICRO #### [facility] [address] [place] [address] [address] Hardeep Rivera PLT 205 103/ul Normal 150-450 [facility] Comment on above: Performed By: #### Deedee PINON, UMICRO #### [facility] [address] [place] [address] [address] Hardeep Rivera RBC 4.45 106/ul Normal 4.20-5.40 [facility] Comment on above: Performed By: #### Dedeee PINON, UMICRO #### [facility] [address] [place] [address] [address] Hardeep Rivera WBC 6.3 103/ul Normal 4.0-11.0 [facility] Comment on above: Performed By: #### Deedee PINON, UMICRO #### [facility] [address] [place] [address] HEAD WO CONon [...] CAMERON NELSON Date: 2023-02-14 15:46 Normal [facility] ER URINE PROFILEon 3 Bilirubin Ql (U) Negative Normal NEGATIVE [facility] Comment on above: Performed By: #### Deedee PINON UMICRO #### [facility] [address] [place] [address] Dr. Hardeep Rivera Clarity (U) CLEAR Normal CLEAR [facility] Comment on above: Performed By: #### HARI OLSONRO #### [facility] [address] [place] [address] Dr. Hardeep Rivera Color (U) LT. YELLOW Normal YELLOW [facility] Comment on above: Performed By: #### HARI OLSONRO #### [facility] [address] [place] [address] Dr. Hardeep FRANCIS A micrscopic examination will be performed if indicated. Normal [facility] Comment on above: Performed By: #### HARI OLSONRO #### [facility] [address] [place] [address] Dr. Hardeep Rivera Glucose Ql (U) Negative Normal NEGATIVE The [facility] Comment on above: Performed By: #### AKSHAT OLSONICRO #### [facility] [address] [place] [address] Dr. Hardeep Rivera Hemoglobin Ql (U) TRACE-INTACT Abnormal NEGATIVE [facility] Comment on above: Performed By: #### HARI OLSONRO #### [facility] [address] [place] [address] Dr. Hardeep Rivera Ketones Ql (U) Negative Normal NEGATIVE [facility] Comment on above: Performed By: #### HARI OLSONRO #### [facility] [address] [place] [address] Dr. Hardeep Rivera LEUKOCYTES Negative Normal NEGATIVE [facility] Comment on above: Performed By: #### E KATHRIN, UMICRO #### [facility] [address] [place] [address] [address] Hardeep Rivera Nitrite Ql (U) Negative Normal NEGATIVE [facility] Comment on above: Performed By: #### E KATHRIN, UMICRO #### [facility] [address] [place] [address] [address] Hardeep Rivera pH (U) 7.0 [pH] Normal 5-9 [facility] Comment on above: Performed By: #### E KATHRIN, UMICRO #### [facility] [address] [place] [address] [address] Hardeep Rivera Protein (U) [Mass/Vol] 30 mg/dL Abnormal NEGAT PEARL/ TRACE [facility] Comment on above: Performed By: #### Deedee PINON UMICRO #### [facility] [address] [place] [address] Dr. Hardeep Rivera SPEC GRAVITY 1.010 Normal 1.005-<=1.02 5 [facility] Comment on above: Performed By: #### Deedee PINON UMICRO #### [facility] [address] [place] [address] Dr. Hardeep Rivera UR MICRO IND INDICATED Normal [facility] Comment on above: Performed By: #### Deedee PINON UMICRO #### [facility] [address] [place] [address] Dr. Hardeep Rivera Urobilinogen Qn (U) 0.2 {Kevon'U}/dL Normal 0.2 - 1. 0 [facility] Comment on above: Performed By: #### E KATHRIN, UMICRO #### [facility] [address] [place] [address] Dr. Hardeep Rivera PROF 14(COMP METB)on 023 Albumin [Mass/Vol] 3.5 g/dL Normal 3.4-5.0 [facility] Comment on above: Performed By: #### H STROPN, CMP, TSH ####[facility] [address] [place] [address]Dr. Hardeep Rivera Albumin/Globulin [Mass ratio] 1.2 {ratio} Normal [facility] Comment on above: Performed By: #### H TYLER CMP, TSH ####[facility] [address] [place] [address]Dr. Hardeep Rivera ALP [Catalytic activity/Vol] 153 U/L Critically high 46-116 [facility] Comment on above: Performed By: #### H TYLER CMP, TSH ####[facility] [address] [place], [place] [address]Dr. Preethiarabella Rivera ALT [Catalytic activity/Vol] 21 U/L Normal 14-59 [facility] Comment on above: Performed By: #### H TYLER CMP, TSH ####[facility] [address] [place], [place] [address]Dr. Hardeep Rivera Anion gap [Moles/Vol] 9.3 mmol/L Normal [facility] Comment on above: Performed By: #### H TYLER CMP, TSH ####[facility] [address] [place], [place] [address]Dr. Preethiarabella Rivera AST [Catalytic activity/Vol] 23 U/L Normal 15-37 [facility] Comment on above: Performed By: #### H TYLER CMP, TSH ####[facility] [address] [place], [place] [address]Dr. Hardeep Rivera Bilirubin [Mass/Vol] 0.6 mg/dL Normal 0.2-1.0 [facility] Comment on above: Performed By: #### H TYLER CMP, TSH ####[facility] [address] [place] [address]Dr. Hardeep Rivera Calcium [Mass/Vol] 8.4 mg/dL Critically low 8.5-10.1 Th e [facility] Comment on above: Performed By: #### H STRONATHANIEL, CMP, TSH ####[facility] [address] [place], [place] [address]Dr. Hardeep Rivera Chloride [Moles/Vol] 96 mmol/L Critically low 98-107 [facility] Comment on above: Performed By: #### H STROPN, CMP, TSH ####[facility] [address] [place] [address]Dr. Hardeep Rivera CO2 [Moles/Vol] 29.3 mmol/L Normal 21.0-32.0 [facility] Comment on above: Performed By: #### H STROPN, CMP, TSH ####[facility] [address] [place] [address]Dr. Hardeep Rivera Creatinine [Mass/Vol] 1.16 mg/dL Critically high 0.55-1.02 [facility] Comment on above: Performed By: #### H STROPN, CMP, TSH ####[facility] [address] [place] [address]Dr. Hardeep Rivera EGFR-AF SOUTH AFRICAN 55 mL/min/1.73m2 Critically low >=60 [facility] Comment on above: Performed By: #### H STROPN, CMP, TSH ####[facility] [address] [place] [address]Dr. Hardeep Rivera EGFR-NON AF SOUTH AFRICAN 45 mL/min/1.73m2 Critically low >=60 [facility] Comment on above: Performed By: #### H STROPN, CMP, TSH ####[facility] [address] [place] [address]Dr. Hardeep Rivera Globulin (S) [Mass/Vol] 2.9 g/dL Normal [facility] Comment on above: Performed By: #### H STROPN, CMP, TSH ####[facility] [address] [place] [address]Dr. Hardeep Rivera Glucose [Mass/Vol] 105 mg/dL Normal 74-106 [facility] Comment on above: Performed By: #### H STROPN, CMP, TSH ####[facility] [address] [place] [address]Dr. Hardeep Rivera Potassium [Moles/Vol] 4.6 mmol/L Normal 3.5-5.1 [facility] Comment on above: Performed By: #### H STROPN, CMP, TSH ####[facility] [address] [place] [address]Dr. Hardeep Rivera Protein [Mass/Vol] 6.4 g/dL Normal 6.4-8.2 [facility] Comment on above: Performed By: #### H GLADIS SCOTT, TSH ####[facility] [address] [place] [address]Dr. Hardeep Rivera Sodium [Moles/Vol] 130 mmol/L Critically low 136-145 Th [facility] Comment on above: Performed By: #### H GLADIS SCOTT, TSH ####[facility] [address] [place] [address]Dr. Hardeep Rivera Urea nitrogen [Mass/Vol] 27.0 mg/dL Critically high 7.0-18.0 [facility] Comment on above: Performed By: #### H GLADIS SCOTT, TSH ####[facility] [address] [place], [place] [address]Dr. Hardeep Rivera Urea nitrogen/Creatinine [Mass ratio] 23.3 mg/mg Normal [facility] Comment on above: Performed By: #### H GLADIS SCOTT, TSH ####[facility] [address] [place] [address]Dr. Hardeep Rivera PROTIMEon 02-14-2023 INR Coag (PPP) [Relative time] 1.07 {INR} Normal [facility] Comment on above: Performed By: #### P T, PTT ####[facility] [address] [place], [place] [address]Dr. Hardeep Rivera INR GUIDELINES SEE BELOW Normal [facility] Comment on above: Result Comment: EDMUND RED INR: 2.0 - 3.0 CONDITIONS NOT LISTED BELOW 2.5 - 3.5 FOR PROSTHETIC HEART VALVE REPLACEMENT 2.5 - 3.5 RECURRENT THROMBOSIS Performed By: #### P T, PTT ####[facility] [address] [place], [place] [address]Dr. Hardeep Rivera PT Coag (PPP) [Time] 11.3 s Normal 9.0-11.6 [facility] Comment on above: Performed By: #### P T, PTT ####[facility] [address] [place] [id number]. Hardeep Rivera PTTon 02-14-2023 aPTT Coag (Bld) [Time] 29.1 s Normal 22.3-36.2 Th [facility] Comment on above: Performed By: #### P T, PTT ####[facility] [address] [place] [address]Dr. Hardeep Rivera TROPONIN, HIGH SENSITIVITYon 02-14-2023 HSTROP 10.4 pg/mL Normal 4.0-51.3 [facility] Comment on above: Result Comment: CUT- OFF POINTS HAVE BEEN ESTABLISHED BASED ON THE FOURTH UNIVERSAL DEFINITIONS OF MYOCARDIAL INFARCTION. THE UPPER REFERENCE LIMIT (URL) OF TROPONIN, DEFINED THE 99TH PERCENTILE OF cTnI DISTRIBUTION IN A REFERENCE POPULATION, HAS BEEN CONFIRMED THE DECISION THRESHOLD FOR [place] DIAGNOSIS. Performed By: #### H TYLER CMP, TSH ####[facility] [address] [place], [place] [address]Dr. Hardeep Rivera TSHon 02-14-2023 TSH 1.237 uIU/mL Normal 0.358-3.740 [facility] Comment on above: Performed By: #### H TYLER CMP, TSH ####[facility] [address] [place] [address]Dr. Hardeep Rivera URINE MICROSCOPIC ONLYon BACTERIA NONE SEEN Normal NONE SEEN [facility] Comment on above: Performed By: #### Deedee PINON UMICRO #### [facility] [address] [place] [address] Dr. Hardeep Rivera Bacteria identified Cx Nom (U) NOT INDICATED Normal [facility] Comment on above: Performed By: #### E RUR UMICRO #### [facility] [address] [place] [address] Dr. Hardeep Rivera CAST NONE SEEN Normal NONE SEEN [facility] Comment on above: Performed By: #### E RUR UMICRO #### [facility] [address] [place] [address] Dr. Hardeep Rivera Crystals LM Nom (Urine sed) NONE SEEN Normal NONE SEEN [facility] Comment on above: Performed By: #### E RUR, UMICRO #### [facility] [address] [place] [address] [address] Hardeep Rivera Epithelial cells LM Ql (Urine sed) NONE SEEN Normal NONE SEEN /RARE [facility] Comment on above: Performed By: #### E RUR, UMICRO #### [facility] [address] [place] [address] Dr. Hardeep Rivera MUCOUS NONE SEEN Normal NONE SEEN [facility] Comment on above: Performed By: #### E RUR, UMICRO #### [facility] [address] [place] [address] Dr. Hardeep Rivera RBC 0-2 Normal 0-2 [facility] Comment on above: Performed By: #### E RUR, UMICRO #### [facility] [address] [place] [address] Dr. Hardeep Rivera WBC NONE SEEN Normal NONE SEEN [facility] Comment on above: Performed By: #### E RUR, UMICRO #### [facility] [address] [place] [address] Dr. Hardeep Rivera XR CHEST 1 Von [...] JAZLYN DUBOSE Date: 2023-02-14 15:50 Normal [facility] FK506 (TACROLIMUS) WHOLE BLO ODon 02-13-2023 Tacrolimus (FK506), Blood 1.4 ng/mL Critically low 2.0-20.0 [facility] Comment on above: Result Comment: Trou gh (immediately following transplant) 15.0 . Trough (steady state, 2 weeks or more after transplant): 3.0 - 8.0 . Performed by LC-MS/MS technology. Performed By: #### E RUR #### [facility] [address] [place] [address] Dr. Hardeep Rivera PROF 14(COMP METB)on 023 Albumin [Mass/Vol] 3.5 g/dL Normal 3.4-5.0 [facility] Comment on above: Performed By: #### C MP ####[facility] Vt[address] [place], [place] [address]Dr. Hardeep Rivera Albumin/Globulin [Mass ratio] 1.2 {ratio} Normal [facility] Comment on above: Performed By: #### C MP ####[facility] [address] [place], [place] [address]Dr. Hardeep Rivera ALP [Catalytic activity/Vol] 149 U/L Critically high 46-116 [facility] Comment on above: Performed By: #### C MP ####[facility] [address] [place], [place] [address]Dr. Hardeep Rivera ALT [Catalytic activity/Vol] 19 U/L Normal 14-59 [facility] Comment on above: Performed By: #### C MP ####[facility] P[address]rol[address]qre[address] [place], [place] [address]Dr. Hardeep Rivera Anion gap [Moles/Vol] 11.7 mmol/L Normal [facility] Comment on above: Performed By: #### C MP ####[facility] Bepbihzydr[address] [place], [place] [address]Dr. Hardeep Rivera AST [Catalytic activity/Vol] 27 U/L Normal 15-37 [facility] Comment on above: Performed By: #### C MP ####[facility] [address] [place], [place] [address]Dr. Hardeep Rivera Bilirubin [Mass/Vol] 0.6 mg/dL Normal 0.2-1.0 [facility] Comment on above: Performed By: #### C MP ####[facility] Jy[address] [place], [place] [address]Dr. Hardeep Rivera Calcium [Mass/Vol] 8.5 mg/dL Normal 8.5-10.1 [facility] Comment on above: Performed By: #### C MP ####[facility] Ip[address] [place], [place] [address]DrLaura Rivera Chloride [Moles/Vol] 96 mmol/L Critically low 98-107 [facility] Comment on above: Performed By: #### C MP ####[facility] Bktvwx[address]ug[address] [place], [place] [address]Dr. Hardeep Rivera CO2 [Moles/Vol] 28.1 mmol/L Normal 21.0-32.0 [facility] Comment on above: Performed By: #### C MP ####[facility] Wqer[address] [place], [place] [address]Dr. Hardeep Rivera Creatinine [Mass/Vol] 1.24 mg/dL Critically high 0.55-1.02 [facility] Comment on above: Performed By: #### C MP ####[facility] Opreokbpqh[address] [place], [place] [address]Dr. Hardeep Rivera EGFR-AF SOUTH AFRICAN 51 mL/min/1.73m2 Critically low >=60 [facility] Comment on above: Performed By: #### C MP ####[facility] [address]ft[address] [place], [place] [address]Dr. Hardeep Rivera EGFR-NON AF SOUTH AFRICAN 42 mL/min/1.73m2 Critically low >=60 [facility] Comment on above: Performed By: #### C MP ####[facility] E[address] [place], [place] [address]Dr. Hardeep Rivera Globulin (S) [Mass/Vol] 3.0 g/dL Normal [facility] Comment on above: Performed By: #### C MP ####[facility] Ywgttgkqos[address] [place], [place] [address]Dr. Hardeep Rivera Glucose [Mass/Vol] 141 mg/dL Critically high 74-106 [facility] Comment on above: Performed By: #### C MP ####[facility] J[address]flj[address]pi[address] [place], [place] [address]Dr. Hardeep Rivera Potassium [Moles/Vol] 4.8 mmol/L Normal 3.5-5.1 [facility] Comment on above: Performed By: #### C MP ####[facility] P[address] [place], [place] [address]DrLaura Rivera Protein [Mass/Vol] 6.5 g/dL Normal 6.4-8.2 [facility] Comment on above: Performed By: #### C MP ####[facility] [address] [place] [address]DrLaura Rivera Sodium [Moles/Vol] 131 mmol/L Critically low 136-145 [facility] Comment on above: Performed By: #### C MP ####[facility] [address] [place] [address]DrLaura Rivera Urea nitrogen [Mass/Vol] 29.0 mg/dL Critically high 7.0-18.0 [facility] Comment on above: Performed By: #### C MP ####[facility] [address] [place], [place] [address]DrLaura Rivera Urea nitrogen/Creatinine [Mass ratio] 23.4 mg/mg Normal [facility] Comment on above: Performed By: #### C MP ####[facility] [address] [place] [address]DrLaura Rivera BNPon 01-09-2023 Natriuretic peptide B (Bld) [Mass/Vol] 336.0 pg/mL Normal <=1,800.0 [facility] Comment on above: Performed By: #### C MP, TSH, BNP, T7 ####[facility] [address] [place] [address]DrLaura Rivera CBC AUTO DIFFon 01-09-2023 BASO # 0.0 103/ul Normal 0.0-0.1 [facility] Comment on above: Performed By: #### C BC #### [facility] [address] [place] [address] Dr. Hardeep Rivera Basophils/100 WBC (Bld) 0.4 % Normal 0.2-2.0 [facility] Comment on above: Performed By: #### C BC #### [facility] [address] [place] [address] Dr. Hardeep Rivera EO # 0.3 103/ul Normal 0.0-0.7 [facility] Comment on above: Performed By: #### C BC #### [facility] [address] [place] [address] Dr. Hardeep Rivera Eosinophils/100 WBC (Bld) 4.4 % Normal 0.9-7.0 [facility] Comment on above: Performed By: #### C BC #### [facility] [address] [place] [address] Dr. Hardeep Rivera Erythrocyte distribution width (RBC) [Ratio] 12.3 % Normal 11.0-15.0 [facility] Comment on above: Performed By: #### C BC #### [facility] [address] [place] [address] Dr. Hardeep Rivera Hematocrit (Bld) [Volume fraction] 43.3 % Normal 36.0-48.0 [facility] Comment on above: Performed By: #### C BC #### [facility] [address] [place] [address] Dr. Hardeep Rivera Hemoglobin (Bld) [Mass/Vol] 13.5 g/dL Normal 12.0-16.0 [facility] Comment on above: Performed By: #### C BC #### [facility] [address] [place] [address] Dr. Hardeep Rivera IG # 0.02 10e3/ul Normal 0.00-0.03 [facility] Comment on above: Performed By: #### C BC #### [facility] [address] [place] [address] Dr. Hardeep Rivera IG % 0.3 % Normal 0.0-0.5 [facility] Comment on above: Performed By: #### C BC #### [facility] [address] [place] [address] Dr. Hardeep Rivera LYMPH # 1.1 103/ul Critically low 1.2-3.8 [facility] Comment on above: Performed By: #### C BC #### [facility] [address] [place] [address] Dr. Hardeep Rivera Lymphocytes/100 WBC (Bld) 16.0 % Critically low 20.5-60.0 [facility] Comment on above: Performed By: #### C BC #### [facility] [address] [place] [address] Dr. Hardeep Rivera MANUAL DIFF REQ NO Normal [facility] Comment on above: Performed By: #### C BC #### [facility] [address] [place] [address] Dr. Hardeep Rivera MCH (RBC) [Entitic mass] 28.4 pg Normal 26.7-34.0 [facility] Comment on above: Performed By: #### C BC #### [facility] [address] [place] [address] Dr. Hardeep Rivera MCHC (RBC) [Mass/Vol] 31.2 g/dL Normal 29.9-35.2 [facility] Comment on above: Performed By: #### C BC #### [facility] [address] [place] [address] Dr. Hardeep Rivera MCV (RBC) [Entitic vol] 91.0 fL Normal 81.0-99.0 [facility] Comment on above: Performed By: #### C BC #### [facility] [address] [place] [address] Dr. Hardeep Rivera MONO # 1.0 103/ul Critically high 0.3-0.8 [facility] Comment on above: Performed By: #### C BC #### [facility] [address] [place] [address] Dr. Hardeep Rivera Monocytes/100 WBC (Bld) 14.7 % Critically high 1.7-12.0 [facility] Comment on above: Performed By: #### C BC #### [facility] [address] [place] [address] Dr. Hardeep Rivera NEUT # 4.4 103/ul Normal 1.4-6.5 [facility] Comment on above: Performed By: #### C BC #### [facility] [address] [place] [address] Dr. Hardeep Rivera Neutrophils/100 WBC (Bld) 64.2 % Normal 43.0-75.0 [facility] Comment on above: Performed By: #### C BC #### [facility] [id number] Hardeep Rivera Platelet mean volume (Bld) [Entitic vol] 9.5 fL Normal 9.5-13.5 [facility] Comment on above: Performed By: #### C BC #### [facility] [id number] Hardeep Rivera PLT 238 103/ul Normal 150-450 [facility] Comment on above: Performed By: #### C BC #### [facility] [address] [address] [address] Hardeep Rivera RBC 4.76 106/ul Normal 4.20-5.40 [facility] Comment on above: Performed By: #### C BC #### [facility] [address] [address] [address] Hardeep Rivera WBC 6.8 103/ul Normal 4.0-11.0 [facility] Comment on above: Performed By: #### C BC #### [facility] [address] [address] [address] Hardeep Rivera FREE THYROXINE INDEX T7on FTI 3.96 Normal 1.30-4.50 [facility] Comment on above: Performed By: #### C MP, TSH, BNP, T7 ####[facility] [address] [id number]. Hardeep Rivera T3U 35.0 % Normal 30.0-39.0 [facility] Comment on above: Performed By: #### C MP, TSH, BNP, T7 ####[facility] [address] [place], [place] [address]DhDr. Hardeep Rivera T4 [Mass/Vol] 11.30 ug/dL Normal 4.80-13.90 [facility] Comment on above: Performed By: #### C MP, TSH, BNP, T7 ####[facility] [address] [id number]. Hardeep Rivera PROF 14(COMP METB)on 023 Albumin [Mass/Vol] 3.9 g/dL Normal 3.4-5.0 [facility] Comment on above: Performed By: #### C MP, TSH, BNP, T7 ####[facility] [address] [place] [address]Dr. Hardeep Rivera Albumin/Globulin [Mass ratio] 1.2 {ratio} Normal [facility] Comment on above: Performed By: #### C MP, TSH, BNP, T7 ####[facility] [address] [place] [address]Dr. Hardeep Rivera ALP [Catalytic activity/Vol] 151 U/L Critically high 46-116 [facility] Comment on above: Performed By: #### C MP, TSH, BNP, T7 ####[facility] [address] [place] [address]Dr. Hardeep Rivera ALT [Catalytic activity/Vol] 30 U/L Normal 14-59 [facility] Comment on above: Performed By: #### C MP, TSH, BNP, T7 ####[facility] [address] [place], [place] [address]Dr. Hardeep Rivera Anion gap [Moles/Vol] 15.6 mmol/L Normal [facility] Comment on above: Performed By: #### C MP, TSH, BNP, T7 ####[facility] [address] [place], [place] [address]Dr. Hardeep Rivera AST [Catalytic activity/Vol] 23 U/L Normal 15-37 [facility] Comment on above: Performed By: #### C MP, TSH, BNP, T7 ####[facility] [address] [place], [place] [address]Dr. Hardeep Rivera Bilirubin [Mass/Vol] 0.7 mg/dL Normal 0.2-1.0 [facility] Comment on above: Performed By: #### C MP, TSH, BNP, T7 ####[facility] [address] [place], [place] [address]Dr. Hardeep Rivera Calcium [Mass/Vol] 9.0 mg/dL Normal 8.5-10.1 [facility] Comment on above: Performed By: #### C MP, TSH, BNP, T7 ####[facility] [address] [place] [address]Dr. Hardeep Rivera Chloride [Moles/Vol] 97 mmol/L Critically low 98-107 [facility] Comment on above: Performed By: #### C MP, TSH, BNP, T7 ####[facility] [address] [place] [address]Dr. Hardeep Rivera CO2 [Moles/Vol] 26.1 mmol/L Normal 21.0-32.0 [facility] Comment on above: Performed By: #### C MP, TSH, BNP, T7 ####[facility] [address] [place] [address]Dr. Hardeep Rivera Creatinine [Mass/Vol] 1.78 mg/dL Critically high 0.55-1.02 [facility] Comment on above: Performed By: #### C MP, TSH, BNP, T7 ####[facility] [address]ym[address] [place], [place] [address]Dr. Hardeep Miguel EGFR-AF SOUTH AFRICAN 33 mL/min/1.73m2 Critically low >=60 [facility] Comment on above: Performed By: #### C MP, TSH, BNP, T7 ####[facility] [address] [place], [place] [address]Dr. Hardeep Miguel EGFR-NON AF [place]FR[place] 28 mL/min/1.73m2 Critically low >=60 [facility] Comment on above: Performed By: #### C MP, TSH, BNP, T7 ####[facility] [address] [place], [place] [address]Dr. Hardeep Rivera Globulin (S) [Mass/Vol] 3.3 g/dL Normal [facility] Comment on above: Performed By: #### C MP, TSH, BNP, T7 ####[facility] [address] [place], [place] [address]Dr. Hardeep Rivera Glucose [Mass/Vol] 127 mg/dL Critically high 74-106 [facility] Comment on above: Performed By: #### C MP, TSH, BNP, T7 ####[facility] [address] [place], [place] [address]Dr. Hardeep Rivera Potassium [Moles/Vol] 3.7 mmol/L Normal 3.5-5.1 [facility] Comment on above: Performed By: #### C MP, TSH, BNP, T7 ####[facility] [address] [place] [address]Dr. Hardeep Rivera Protein [Mass/Vol] 7.2 g/dL Normal 6.4-8.2 [facility] Comment on above: Performed By: #### C MP, TSH, BNP, T7 ####[facility] [address] [place] [address]Dr. Hardeep Rivera Sodium [Moles/Vol] 135 mmol/L Critically low 136-145 [facility] Comment on above: Performed By: #### C MP, TSH, BNP, T7 ####[facility] [address] [place] [address]Dr. Hardeep Rivera Urea nitrogen [Mass/Vol] 54.0 mg/dL Critically high 7.0-18.0 [facility] Comment on above: Performed By: #### C MP, TSH, BNP, T7 ####[facility] [address] [place] [address]Dr. Hardeep Rivera Urea nitrogen/Creatinine [Mass ratio] 30.3 mg/mg Normal [facility] Comment on above: Performed By: #### C MP, TSH, BNP, T7 ####[facility] [address] [place] [address]Dr. Hardeep Rivera TSHon 01-09-2023 TSH 1.097 uIU/mL Normal 0.358-3.740 [facility] Comment on above: Performed By: #### C MP, TSH, BNP, T7 ####[facility] [address] [place] [address]Dr. Hardeep Rivera ECHOCARDIO M/2D COMPLETEon 0 12-13-2022 ECHOCARDIO M/2D COMPLETE Patient: SYLVIA HERRERA Exam Date: 12/13/2022 : 1945 Gender:F Ordering : [facility] Admission #: [id number] Family : Order #: [id number] CLICK HERE TO VIEW EXAM ECHOCARDIOGRAM REPORT [...] Area (VTI): 2.23 cm2, 2.23 cm2 Deceleration Carter: 1.44 m/s2 Pressure Half-Time: 850.98 ms Peak [...] Nolan M.D. on 12/14/2022 at 13:49 Normal [facility] US ALAN DOP LEG BILon 023 [...] HAI FOSTER Date: 2022-12-13 10:51 Normal [facility] BNPon 12-11-2022 Natriuretic peptide B (Bld) [Mass/Vol] 457.0 pg/mL Normal <=1,800.0 [facility] Comment on above: Performed By: #### RANDALL OLSON #### [facility] [address] [place] [address] Dr. Hardeep Rivera CBC AUTO DIFFon 12-11-2022 BASO # 0.0 103/ul Normal 0.0-0.1 [facility] Comment on above: Performed By: #### RANDALL OLSON #### [facility] [address] [place] [address] Dr. Hardeep Rivera Basophils/100 WBC (Bld) 0.4 % Normal 0.2-2.0 [facility] Comment on above: Performed By: #### RANDALL OLSON #### [facility] [address] [place] [address] Dr. Hardeep Rivera EO # 0.2 103/ul Normal 0.0-0.7 [facility] Comment on above: Performed By: #### RANDALL OLSON #### [facility] [address] [place] [address] Dr. Hardeep Rivera Eosinophils/100 WBC (Bld) 2.7 % Normal 0.9-7.0 [facility] Comment on above: Performed By: #### HARI OLSONRO #### [facility] [address] [place] [address] Dr. Hardeep Rivera Erythrocyte distribution width (RBC) [Ratio] 11.9 % Normal 11.0-15.0 [facility] Comment on above: Performed By: #### HARI OLSONRO #### [facility] [address] [place] [address] Dr. Hardeep Rivera Hematocrit (Bld) [Volume fraction] 40.2 % Normal 36.0-48.0 [facility] Comment on above: Performed By: #### Deedee PINON UMICRO #### [facility] [address] [place] [address] Dr. Hardeep Rivera Hemoglobin (Bld) [Mass/Vol] 13.5 g/dL Normal 12.0-16.0 [facility] Comment on above: Performed By: #### Deedee PINON UMICRO #### [facility] [address] [place] [address] Dr. Hardeep Rivera IG # 0.03 10e3/ul Normal 0.00-0.03 [facility] Comment on above: Performed By: #### E KATHRIN UMICRO #### [facility] [address] [place] [address] Dr. Hardeep Rivera IG % 0.4 % Normal 0.0-0.5 [facility] Comment on above: Performed By: #### Deedee PINON UMICRO #### [facility] [address] [place] [address] Dr. Hardeep Rivera LYMPH # 0.9 103/ul Critically low 1.2-3.8 [facility] Comment on above: Performed By: #### Deedee PINON UMICRO #### [facility] [address] [place] [address] Dr. Hardeep Rivera Lymphocytes/100 WBC (Bld) 11.3 % Critically low 20.5-60.0 [facility] Comment on above: Performed By: #### Deedee PINON UMICRO #### [facility] [address] [place] [address] Dr. Hardeep Rivera MANUAL DIFF REQ NO Normal [facility] Comment on above: Performed By: #### Deedee PINON UMICRO #### [facility] [address] [place] [address] Dr. Hardeep Rivera MCH (RBC) [Entitic mass] 28.4 pg Normal 26.7-34.0 [facility] Comment on above: Performed By: #### E KATHRIN UMICRO #### [facility] [address] [place] [address] Dr. Hardeep Rivera MCHC (RBC) [Mass/Vol] 33.6 g/dL Normal 29.9-35.2 [facility] Comment on above: Performed By: #### HARI OLSONRO #### [facility] [address] [place] [address] Dr. Hardeep Rivera MCV (RBC) [Entitic vol] 84.5 fL Normal 81.0-99.0 [facility] Comment on above: Performed By: #### Deedee PINON UMICRO #### [facility] [address] [place] [address] Dr. Hardeep Rivera MONO # 1.0 103/ul Critically high 0.3-0.8 [facility] Comment on above: Performed By: #### AKSHAT OLSONICRO #### [facility] [address] [place] [address] Dr. Hardeep Rivera Monocytes/100 WBC (Bld) 12.5 % Critically high 1.7-12.0 [facility] Comment on above: Performed By: #### Deedee PINON UMICRO #### [facility] [address] [place] [address] Dr. Hardeep Rivera NEUT # 5.9 103/ul Normal 1.4-6.5 [facility] Comment on above: Performed By: #### AKSHAT OLSONICRO #### [facility] [address] [place] [address] Dr. Hardeep Rivera Neutrophils/100 WBC (Bld) 72.7 % Normal 43.0-75.0 [facility] Comment on above: Performed By: #### Deedee PINON UMICRO #### [facility] [address] [place] [address] Dr. Hardeep Rivera Platelet mean volume (Bld) [Entitic vol] 8.6 fL Critically low 9.5-13.5 [facility] Comment on above: Performed By: #### Deedee PINON UMICRO #### [facility] [address] [place] [address] Dr. Hardeep Rivera PLT 226 103/ul Normal 150-450 [facility] Comment on above: Performed By: #### HARI OLSONRO #### [facility] [address] [place] [address] Dr. Hardeep Rivera RBC 4.76 106/ul Normal 4.20-5.40 [facility] Comment on above: Performed By: #### HARI OLSONRO #### [facility] [address] [place] [address] Dr. Hardeep Rivera WBC 8.2 103/ul Normal 4.0-11.0 [facility] Comment on above: Performed By: #### AKSHAT OLSONICRO #### [facility] [address] [place] [address] Dr. Hardeep Rivera FREE THYROXINE INDEX T7on FTI 3.40 Normal 1.30-4.50 [facility] Comment on above: Performed By: #### HARI OLSONRO #### [facility] [address] [place] [address] Dr. Hardeep Rivera T3U 34.0 % Normal 30.0-39.0 [facility] Comment on above: Performed By: #### HARI OLSONRO #### [facility] [address] [place] [address] Dr. Hardeep Rivera T4 [Mass/Vol] 10.00 ug/dL Normal 4.80-13.90 [facility] Comment on above: Performed By: #### HARI OLSONRO #### [facility] [address] [place] [address] Dr. Hardeep Rivera PROF 14(COMP METB)on 023 Albumin [Mass/Vol] 3.8 g/dL Normal 3.4-5.0 [facility] Comment on above: Performed By: #### HARI OLSONRO #### [facility] [address] [place] [address] Dr. Hardeep Rivera Albumin/Globulin [Mass ratio] 1.1 {ratio} Normal [facility] Comment on above: Performed By: #### HARI OLSONRO #### [facility] [address] [place] [address] Dr. Hardeep Rivera ALP [Catalytic activity/Vol] 192 U/L Critically high 46-116 [facility] Comment on above: Performed By: #### RANDALL OLSON #### [facility] [facility] [address] [place] [address] Dr. Hardeep Rivera ALT [Catalytic activity/Vol] 22 U/L Normal 14-59 [facility] Comment on above: Performed By: #### RANDALL OLSON #### [facility] [address] [place] [address] Dr. Hardeep Rivera Anion gap [Moles/Vol] 11.4 mmol/L Normal [facility] Comment on above: Performed By: #### RANDALL OLSON #### [facility] [address] [place] [address] Dr. Hardeep Rivera AST [Catalytic activity/Vol] 22 U/L Normal 15-37 [facility] Comment on above: Performed By: #### RANDALL OLSON #### [facility] [address] [place] [address] Dr. Hardeep Rivera Bilirubin [Mass/Vol] 0.5 mg/dL Normal 0.2-1.0 [facility] Comment on above: Performed By: #### RANDALL OLSON #### [facility] [address] [place] [address] Dr. Hardeep Rivera Calcium [Mass/Vol] 9.1 mg/dL Normal 8.5-10.1 [facility] Comment on above: Performed By: #### HARI OLSONRO #### [facility] [address] [place] [address] Dr. Hardeep Rivera Chloride [Moles/Vol] 93 mmol/L Critically low 98-107 [facility] Comment on above: Performed By: #### RANDALL OLSON #### [facility] [address] [place] [address] Dr. Hardeep Rivera CO2 [Moles/Vol] 30.8 mmol/L Normal 21.0-32.0 [facility] Comment on above: Performed By: #### HARI OLSONRO #### [facility] [address] [place] [address] Dr. Hardeep Rivera Creatinine [Mass/Vol] 1.49 mg/dL Critically high 0.55-1.02 [facility] Comment on above: Performed By: #### E RUR, UMICRO #### [facility] [address] [place] [address] Dr. Hardeep Rivera EGFR-AF SOUTH AFRICAN 41 mL/min/1.73m2 Critically low >=60 [facility] Comment on above: Performed By: #### E RUR, UMICRO #### [facility] [address] [place] [address] Dr. Hardeep Rivera EGFR-NON AF SOUTH AFRICAN 34 mL/min/1.73m2 Critically low >=60 [facility] Comment on above: Performed By: #### E RUR, UMICRO #### [facility] [address] [place] [address] Dr. Hardeep Rivera Globulin (S) [Mass/Vol] 3.4 g/dL Normal [facility] Comment on above: Performed By: #### E RUR, UMICRO #### [facility] [address] [place] [address] Dr. Hardeep Rivera Glucose [Mass/Vol] 116 mg/dL Critically high 74-106 [facility] Comment on above: Performed By: #### E RUR, UMICRO #### [facility] [address] [place] [address] Dr. aHrdeep Rivera Potassium [Moles/Vol] 4.2 mmol/L Normal 3.5-5.1 [facility] Comment on above: Performed By: #### E RUR, UMICRO #### [facility] [address] [place] [address] Dr. Hardeep Rivera Protein [Mass/Vol] 7.2 g/dL Normal 6.4-8.2 [facility] Comment on above: Performed By: #### E RUR, UMICRO #### [facility] [address] [place] [address] Dr. Hardeep Rivera Sodium [Moles/Vol] 131 mmol/L Critically low 136-145 [facility] Comment on above: Performed By: #### RANDALL OLSON #### [facility] [address] [place] [address] Dr. Hardeep Rivera Urea nitrogen [Mass/Vol] 38.0 mg/dL Critically high 7.0-18.0 [facility] Comment on above: Performed By: #### HARI OLSONRO #### [facility] [address] [address] [address] Hardeep Rivera Urea nitrogen/Creatinine [Mass ratio] 25.5 mg/mg Normal [facility] Comment on above: Performed By: #### RANDALL OLSON #### [facility] [address] [place] [address] Dr. aHrdeep Rivera TSHon 12-11-2022 TSH 6.407 uIU/mL Critically high 0.358-3.740 [facility] Comment on above: Performed By: #### RANDALL OLSON #### [facility] [address] [place] [address] Dr. Hardeep Rivera [facility]01 SARS-CoV-2 (COVID-19) RNA ULICES+probe Ql (Unsp spec) Not detected Normal NOT DETECTED [facility] Comment on above: Result Comment: This test is not yet approved or cleared by the [place] FDA. When there are no FDA-approved or cleared tests available, and other criteria are met, FDA can make tests available under an emergency access mechanism called an Emergency Use Authorization (EUA). The EUA for this test is supported by the [place] Erector of Health and Human Service's (HHS's) declaration [...] SARS-CoV-2. Performed By: #### C [facility] #### [facility] [address] [place] [address] Dr. Hardeep Rivera INFLUENZA A AND B AGon 11-14 [facility] SEE BELOW Normal [facility] Comment on above: Result Comment: Nega tive for Flu A protein angiten. Infection due to Flu A cannot be ruled out. Flu A angiten in the sample may be below the detection limit of the test. Performed By: #### Deedee PINON UMICRO #### [facility] [address] [place] [address] Dr. Hardeep Rivera [facility] SEE BELOW Normal [facility] Comment on above: Result Comment: Nega tive for Flu B protein antigen. Infection due to Flu B cannot be ruled out. Flu B antigen in the sample may be below the detection limit of the test. Performed By: #### Deedee PINON UMICRO #### [facility] [address] [place] [address] Dr. Hardeep Rivera INFLUENZA A AG Negative Normal NEGATIVE SEE COMMENT [facility] Comment on above: Performed By: #### Deedee PINON ICRO #### [facility] [address] [place] [address] Dr. Hardeep Rivera INFLUENZA B AG Negative Normal NEGATIVE SEE COMMENT [facility] Comment on above: Performed By: #### Deedee PINON UMICRO #### [facility] [address] [place] [address] Dr. Hardeep Rivera INTERNAL CONTROLS Within Normal Limits Normal Wi thin Normal Limits [facility] Comment on above: Performed By: #### Deedee PINON UMICRO #### [facility] [address] [place] [address] Dr. Hardeep Rivera Covid-19 PCR ([facility])on SARS-CoV-2 (COVID-19) RNA ULICES+probe Ql (Unsp spec) Not detected Normal NOT DETECTED [facility] Comment on above: Result Comment: This test is not yet approved or cleared by the [place] FDA. When there are no FDA-approved or cleared tests available, and other criteria are met, FDA can make tests available under an emergency access mechanism called an Emergency Use Authorization (EUA). The EUA for this test is supported by the [place] of Health and Human Service's (HHS's) declaration [...] consistent with SARS-CoV-2. Performed By: #### [facility] #### [facility] [address] [place] [address] Dr. Hardeep Rivera INFLUENZA A AND B [facility] 10-03 [facility] SEE BELOW Normal [facility] Comment on above: Result Comment: Nega tive for Flu A protein angiten. Infection due to Flu A cannot be ruled out. Flu A angiten in the sample may be below the detection limit of the test. Performed By: #### E AKSHAT PINONICRO #### [facility] [address] [place] [address] Dr. Hardeep Rivera [facility] BEL[facility] Normal [facility] Comment on above: Result Comment: Nega tive for Flu B protein antigen. Infection due to Flu B cannot be ruled out. Flu B antigen in the sample may be below the detection limit of the test. Performed By: #### E KATHRIN UMICRO #### [facility] [address] [place] [address] Dr. Hardeep Rivera INFLUENZA A AG Negative Normal NEGATIVE SEE COMMENT [facility] Comment on above: Performed By: #### E KATHRIN, UMICRO #### [facility] [address] [place] [address] Dr. Hardeep Rivera INFLUENZA B AG Negative Normal NEGATIVE SEE COMMENT [facility] Comment on above: Performed By: #### E RUR, ICRO #### [facility] [address] [place], [place] [address] Dr. Hardeep Rivera INTERNAL CONTROLS Within Normal Limits Normal Wi thin Normal Limits [facility] Comment on above: Performed By: #### E COLLINSR, ICRO #### [facility] [address] [place], [place] [address] Dr. Hardeep [facility] SYLVIA HERRERA ([id number]) 1945 F Date Time Provider Department 08/16/22 SOY MCCANN [facility] ISACC During your visit today, we [...] mg by mouth three times daily. - cfjauj-hztgpgpz-pavsb se (CREON) 24,000-76,000 -120,000 unit cpDR Take [...] [J18.1] 12/03/2014 09/02/2019 DREW (acute kidney injury) ([facility]) [N17.9] 12/03/2014 Anxiety disorder [F41.9] 07/05/2015 Pain [R52] 11/14/2017 09/02/2019 Encounter Status:Closed by SOY MCCANN on 08/16/22 [facility] AMYLASEon 08-04-2022 Amylase [Catalytic activity/Vol] 155 U/L Critically high 25-115 [facility] Comment on above: Performed By: #### C ABAD MORE AMY ####[facility] [address] [address]Dr. Preethiarabella Rivera CBC AUTO DIFFon 08-04-2022 BASO # 0.0 103/ul Normal 0.0-0.1 [facility] Comment on above: Performed By: #### C BC ####[facility] [address] [address]Dr. Hardeep Rivera Basophils/100 WBC (Bld) 0.3 % Normal 0.2-2.0 [facility] Comment on above: Performed By: #### C BC ####[facility] [address] [place], [place] [address]Dr. Hardeep Rivera EO # 0.1 103/ul Normal 0.0-0.7 [facility] Comment on above: Performed By: #### C BC ####[facility] [address] [place], [place] [address]Dr. Hardeep Rivera Eosinophils/100 WBC (Bld) 1.2 % Normal 0.9-7.0 [facility] Comment on above: Performed By: #### C BC ####[facility] [address] [place], [place] [address]Dr. Hardeep Rivera Erythrocyte distribution width (RBC) [Ratio] 12.2 % Normal 11.0-15.0 [facility] Comment on above: Performed By: #### C BC ####[facility] [address] [place], [place] [address]Dr. Hardeep Rivera Hematocrit (Bld) [Volume fraction] 38.3 % Normal 36.0-48.0 [facility] Comment on above: Performed By: #### C BC ####[facility] [address] [place], [place] [address]Dr. Hardeep Rivera Hemoglobin (Bld) [Mass/Vol] 12.9 g/dL Normal 12.0-16.0 [facility] Comment on above: Performed By: #### C BC ####[facility] [address] [id number]. Hardeep Rivera IG # 0.02 10e3/ul Normal 0.00-0.03 [facility] Comment on above: Performed By: #### C BC ####[facility] [address] [id number]. Hardeep Rivera IG % 0.3 % Normal 0.0-0.5 [facility] Comment on above: Performed By: #### C BC ####[facility] [address] [address]Dr. Hardeep Rivera LYMPH # 1.1 103/ul Critically low 1.2-3.8 [facility] Comment on above: Performed By: #### C BC ####[facility] [address] [address]Dr. Hardeep Rivera Lymphocytes/100 WBC (Bld) 16.6 % Critically low 20.5-60.0 [facility] Comment on above: Performed By: #### C BC ####[facility] [address] [address]Dr. Hardeep Rivera MANUAL DIFF REQ NO Normal [facility] Comment on above: Performed By: #### C BC ####[facility] [address] [id number]. Hardeep Rivera MCH (RBC) [Entitic mass] 29.7 pg Normal 26.7-34.0 [facility] Comment on above: Performed By: #### C BC ####[facility] [address] [address]Dr. Hardeep Rivera MCHC (RBC) [Mass/Vol] 33.7 g/dL Normal 29.9-35.2 [facility] Comment on above: Performed By: #### C BC ####[facility] [address] [address]Dr. Hardeep Rivera MCV (RBC) [Entitic vol] 88.2 fL Normal 81.0-99.0 [facility] Comment on above: Performed By: #### C BC ####[facility] [address] [address]Dr. Hardeep Rivera MONO # 0.7 103/ul Normal 0.3-0.8 [facility] Comment on above: Performed By: #### C BC ####[facility] [address] [address]Dr. Hardeep Rivera Monocytes/100 WBC (Bld) 11.1 % Normal 1.7-12.0 [facility] Comment on above: Performed By: #### C BC ####[facility] [address] [address]Dr. Hardeep Rivera NEUT # 4.6 103/ul Normal 1.4-6.5 [facility] Comment on above: Performed By: #### C BC ####[facility] [address] [address]Dr. Hardeep Rivera Neutrophils/100 WBC (Bld) 70.5 % Normal 43.0-75.0 [facility] Comment on above: Performed By: #### C BC ####[facility] [address] [address]Dr. Hardeep Rivera Platelet mean volume (Bld) [Entitic vol] 9.4 fL Critically low 9.5-13.5 [facility] Comment on above: Performed By: #### C BC ####[facility] [address] [address]Dr. Hardeep Rivera PLT 203 103/ul Normal 150-450 [facility] Comment on above: Performed By: #### C BC ####[facility] [address] [address]Dr. Hardeep Rivera RBC 4.34 106/ul Normal 4.20-5.40 [facility] Comment on above: Performed By: #### C BC ####[facility] [address] [address]Dr. Hardeep Rivera WBC 6.5 103/ul Normal 4.0-11.0 [facility] Comment on above: Performed By: #### C BC ####[facility] [address] [place], [place] [address]G[address] ABD/PELVIS WO CONon 08-04 [...] ALEXSANDER HARDING Date: 2022-08-04 20:12 Normal [facility] Covid-19 PCR (CVD[facility])on SARS-CoV-2 (COVID-19) RNA ULICES+probe Ql (Unsp spec) Not detected Normal NOT DETECTED [facility] Comment on above: Result Comment: When [...] for this test is supported by the [place]ile Erector of Health and Human Service's declaration that [...] be used). Performed By: #### C VDTBH ####[facility] [address] [place], [place] [address]OcDr. Hardeep Rivera ER URINE PROFILEon 2 Bilirubin Ql (U) Negative Normal NEGATIVE [facility] Comment on above: Performed By: #### E RUR #### [facility] [address] [place], [place] [address] Dr. Hardeep Rivera Clarity (U) CLEAR Normal CLEAR [facility] Comment on above: Performed By: #### E RUR #### [facility] [address] [place] [address] Dr. Hardeep Rivera Color (U) LT. YELLOW Normal YELLOW [facility] Comment on above: Performed By: #### E RUR #### [facility] [address] [place] [address] Dr. Hardeep FRANCIS A micrscopic examination will be performed if indicated. Normal [facility] Comment on above: Performed By: #### E RUR #### [facility] [address] [place] [address] Dr. Hardeep Rivera Glucose Ql (U) Negative Normal NEGATIVE [facility] Comment on above: Performed By: #### E RUR #### [facility] [address] [place] [address] Dr. Hardeep Rivera Hemoglobin Ql (U) Negative Normal NEGATIVE [facility] Comment on above: Performed By: #### E RUR #### [facility] [address] [place] [address] Dr. Hardeep Rivera Ketones Ql (U) Negative Normal NEGATIVE [facility] Comment on above: Performed By: #### E RUR #### [facility] [address] [place] [address] Dr. Hardeep Rivera LEUKOCYTES Negative Normal NEGATIVE [facility] Comment on above: Performed By: #### E RUR #### [facility] [address] [place] [address] Dr. Hardeep Rivera Nitrite Ql (U) Negative Normal NEGATIVE [facility] Comment on above: Performed By: #### E RUR #### [facility] [address] [place] [address] Dr. Hardeep Rivera pH (U) 7.0 [pH] Normal 5-9 [facility] Comment on above: Performed By: #### E RUR #### [facility] [address] [place] [address] Dr. Hardeep Rivera SPEC GRAVITY <=1.005 Abnormal 1.005-<=1.02 5 [facility] Comment on above: Performed By: #### E RUR #### [facility] [address] [address] [address] Hardeep Rivera UA PROTEIN Negative Normal NEGATIVE/ TRACE [facility] Comment on above: Performed By: #### E RUR #### [facility] [address] [address] [address] Hardeep Rivera UR MICRO IND NOT INDICATED Normal [facility] Comment on above: Performed By: #### E RUR #### [facility] [address] [address] [address] Hardeep Rivera Urobilinogen Qn (U) 0.2 {Kevon'U}/dL Normal 0.2 - 1. 0 [facility] Comment on above: Performed By: #### E RUR #### [facility] [address] [address] [address] Hadreep Rivera LIPASEon 08-04-2022 Lipase [Catalytic activity/Vol] 1486.0 U/L Critically high 73.0-393.0 [facility] Comment on above: Performed By: #### C MP, LIPA, BRITTNEY ####[facility] [address] [address]DrLaura Rivera PROF 14(COMP METB)on 022 Albumin [Mass/Vol] 3.6 g/dL Normal 3.4-5.0 [facility] Comment on above: Performed By: #### C MP, LIPA, BRITTNEY ####[facility] [address] [address]DrLaura Rivera Albumin/Globulin [Mass ratio] 1.3 {ratio} Normal [facility] Comment on above: Performed By: #### C MP, LIPA, BRITTNEY ####[facility] [address] [address]DrLaura Rivera ALP [Catalytic activity/Vol] 171 U/L Critically high 46-116 [facility] Comment on above: Performed By: #### C MP, LIPA, BRITTNEY ####[facility] [address] [address]DrLaura Rivera ALT [Catalytic activity/Vol] 35 U/L Normal 14-59 [facility] Comment on above: Performed By: #### C MP LIPA, BRITTNEY ####[facility] [address] [address]Dr. Hardeep Rivera Anion gap [Moles/Vol] 11.4 mmol/L Normal [facility] Comment on above: Performed By: #### C MP LIPA, BRITTNEY ####[facility] [address] [address]Dr. Hardeep Rivera AST [Catalytic activity/Vol] 28 U/L Normal 15-37 [facility] Comment on above: Performed By: #### C MP LIPA, BRITTNEY ####[facility] [address] [address]Dr. Hardeep Rivera Bilirubin [Mass/Vol] 0.7 mg/dL Normal 0.2-1.0 [facility] Comment on above: Performed By: #### C MP LIPA, BRITTNEY ####[facility] [address] [place], [place] [address]Dr. Hardeep Rivera Calcium [Mass/Vol] 8.4 mg/dL Critically low 8.5-10.1 [facility] Comment on above: Performed By: #### C ARGENIS LIPA, BRITTNEY ####[facility] [address] [place], [place] [address]Dr. Hardeep Rivera Chloride [Moles/Vol] 100 mmol/L Normal 98-107 [facility] Comment on above: Performed By: #### C MP, LIPA, BRITTNEY ####[facility] [address] [place], [place] [address]Dr. Hardeep Rivera CO2 [Moles/Vol] 25.6 mmol/L Normal 21.0-32.0 [facility] Comment on above: Performed By: #### C MP LIPA, BRITTNEY ####[facility] [address] [place], [place] [address]Dr. Hardeep Rivera Creatinine [Mass/Vol] 1.33 mg/dL Critically high 0.55-1.02 [facility] Comment on above: Performed By: #### C MP, LIPA, BRITTNEY ####[facility] [address] [address]Dr. Hardeep Rivera EGFR-AF SOUTH AFRICAN 47 mL/min/1.73m2 Critically low >=60 [facility] Comment on above: Performed By: #### C MP LIPA, BRITTNEY ####[facility] [address] [address]Dr. Hardeep Rievra EGFR-NON AF SOUTH AFRICAN 39 mL/min/1.73m2 Critically low >=60 [facility] Comment on above: Performed By: #### C MP, LIPA, BRITTNEY ####[facility] [address] [address]Dr. Hardeep Rivera Globulin (S) [Mass/Vol] 2.7 g/dL Normal [facility] Comment on above: Performed By: #### C MP, LIPA, BRITTNEY ####[facility] [address] [address]Dr. Hardeep Rivera Glucose [Mass/Vol] 108 mg/dL Critically high 74-106 [facility] Comment on above: Performed By: #### C MP, LIPA, BRITTNEY ####[facility] [address] [address]Dr. Hardeep Rivera Potassium [Moles/Vol] 4.0 mmol/L Normal 3.5-5.1 [facility] Comment on above: Performed By: #### C MP, LIPA, BRITTNEY ####[facility] [address] [place] [address]Dr. Hardeep Rivera Protein [Mass/Vol] 6.3 g/dL Critically low 6.4-8.2 Th [facility] Comment on above: Performed By: #### C MP, LIPA, BRITTNEY ####[facility] [address] [place], [place] [address]Dr. Hardeep Rivera Sodium [Moles/Vol] 133 mmol/L Critically low 136-145 Th [facility] Comment on above: Performed By: #### C MP, LIPA, BRITTNEY ####[facility] [address] [place] [address]Dr. Hardeep Rivera Urea nitrogen [Mass/Vol] 23.0 mg/dL Critically high 7.0-18.0 [facility] Comment on above: Performed By: #### C ABAD MORE AMY ####[facility] [address] [address]Dr. Hardeep Rivera Urea nitrogen/Creatinine [Mass ratio] 17.3 mg/mg Normal [facility] Comment on above: Performed By: #### C ABAD MORE AMY ####[facility] [address] [place] [address]Dr. Hardeep Rivera Pre-Certification Formon Pre-Certification Form [id number] #[id number]:[id number] Normal [facility] BOX TEST SENT OUTon 08-02-20 22 SENT TO REF LAB 08/02/2022 Normal [facility] Comment on above: Performed By: #### Deedee PINON #### [facility] [address] [place] [address] Dr. Hardeep Rivera CBC AUTO DIFFon 08-02-2022 BASO # 0.0 103/ul Normal 0.0-0.1 [facility] Comment on above: Performed By: #### RANDALL OLSON #### [facility] [address] [place] [address] Dr. Hardeep Rivera Basophils/100 WBC (Bld) 0.3 % Normal 0.2-2.0 [facility] Comment on above: Performed By: #### RANDALL OLSON #### [facility] [address] [place] [address] Dr. Hardeep Rivera EO # 0.1 103/ul Normal 0.0-0.7 [facility] Comment on above: Performed By: #### RANDALL OLSON #### [facility] [address] [place] [address] Dr. Hardeep Rivera Eosinophils/100 WBC (Bld) 1.4 % Normal 0.9-7.0 [facility] Comment on above: Performed By: #### RANDALL OLSON #### [facility] [address] [place] [address] Dr. Hardeep Rivera Erythrocyte distribution width (RBC) [Ratio] 12.2 % Normal 11.0-15.0 [facility] Comment on above: Performed By: #### Deedee PINON UMICRO #### [facility] [address] [place] [address] Dr. Hardeep Rivera Hematocrit (Bld) [Volume fraction] 41.2 % Normal 36.0-48.0 [facility] Comment on above: Performed By: #### Deedee PINON, UMICRO #### [facility] [address] [place] [address] Dr. Hardeep Rivera Hemoglobin (Bld) [Mass/Vol] 13.6 g/dL Normal 12.0-16.0 [facility] Comment on above: Performed By: #### Deedee PINON UMICRO #### [facility] [address] [place] [address] Dr. Hardeep Rivera IG # 0.02 10e3/ul Normal 0.00-0.03 [facility] Comment on above: Performed By: #### Deedee PINON UMICRO #### [facility] [address] [place] [address] Dr. Hardeep Rivera IG % 0.3 % Normal 0.0-0.5 [facility] Comment on above: Performed By: #### Deedee PINON, UMICRO #### [facility] [address] [place] [address] Dr. Hardeep Rivera LYMPH # 0.6 103/ul Critically low 1.2-3.8 [facility] Comment on above: Performed By: #### Deedee PINON UMICRO #### [facility] [address] [place] [address] Dr. Hardeep Rivera Lymphocytes/100 WBC (Bld) 8.9 % Critically low 20.5-60.0 [facility] Comment on above: Performed By: #### Deedee PINON, UMICRO #### [facility] [address] [place] [address] Dr. Hardeep Rivera MANUAL DIFF REQ NO Normal [facility] Comment on above: Performed By: #### HARI OLSONRO #### [facility] [address] [place] [address] Dr. Hardeep Rivera MCH (RBC) [Entitic mass] 29.6 pg Normal 26.7-34.0 [facility] Comment on above: Performed By: #### HARI OLSONRO #### [facility] [address] [place] [address] Dr. Hardeep Rivera MCHC (RBC) [Mass/Vol] 33.0 g/dL Normal 29.9-35.2 [facility] Comment on above: Performed By: #### HARI OLSONRO #### [facility] [address] [place] [address] Dr. Hardeep Rivera MCV (RBC) [Entitic vol] 89.8 fL Normal 81.0-99.0 [facility] Comment on above: Performed By: #### HARI OLSONRO #### [facility] [address] [place] [address] Dr. Hardeep Rivera MONO # 0.7 103/ul Normal 0.3-0.8 [facility] Comment on above: Performed By: #### HARI OLSONRO #### [facility] [address] [place] [address] Dr. Hardeep Rivera Monocytes/100 WBC (Bld) 11.6 % Normal 1.7-12.0 [facility] Comment on above: Performed By: #### HARI OLSONRO #### [facility] [address] [place] [address] Dr. Hardeep Rivera NEUT # 5.0 103/ul Normal 1.4-6.5 [facility] Comment on above: Performed By: #### HARI OLSONRO #### [facility] [address] [place] [address] Dr. Hardeep Rivera Neutrophils/100 WBC (Bld) 77.5 % Critically high 43.0-75.0 [facility] Comment on above: Performed By: #### HARI OLSONRO #### [facility] [address] [address] [address] Hardeep Rivera Platelet mean volume (Bld) [Entitic vol] 9.4 fL Critically low 9.5-13.5 [facility] Comment on above: Performed By: #### Deedee IPNON, UMICRO #### [facility] [id number] Hardeep Rivera PLT 200 103/ul Normal 150-450 [facility] Comment on above: Performed By: #### Deedee PINON, UMICRO #### [facility] [address] [address] [address] Hardeep Rivera RBC 4.59 106/ul Normal 4.20-5.40 [facility] Comment on above: Performed By: #### Deedee PINON, UMICRO #### [facility] [address] [address] [address] Hardeep Rivera WBC 6.4 103/ul Normal 4.0-11.0 [facility] Comment on above: Performed By: #### Deedee PINON, UMICRO #### [facility] [address] [address] [address] Hardeep Clark 08-02-2022 CNPN Telephone (JULIAN CONNELLY MAI) SYLVIA HERRERA ([id number]) 1945 F Date Time Provider Department 08/02/22 LOIDA MATHIAS [facility] During your visit today, we recorded the following information about you: Linden Faustina 08/02/2022 1:42 PM Signed Patient had labs drawn 08/02/22, uploaded to scanned docs. Loida Mathias APRN.COUNTY ADVISER 08/07/2022 10:27 AM Signed Received outside labs drawn 08/02 -- FK 4.7 Cr 1.4 BUN 21 K 3.9 FBS 119 WBC 6400 Hgb 13.6 Hct 41 Plts 200 My chart message sent to patient. Advised no changes. Asked that she keep us posted re: if she will be transferring her care. Loida Mathias APRN.COUNTY ADVISER August 07, 2022 10:27 AM Allergies As [...] mg by mouth three times daily. - ojtdku-lsnurlwh-zgyxv se (CREON) 24,000-76,000 -120,000 unit cpDR Take [...] 08/02/22 Normal [facility] PROF CHEM 8 (BAS METB)on Anion gap [Moles/Vol] 12.2 mmol/L Normal [facility] Comment on above: Performed By: #### RANDALL OLSON #### [facility] [address] [address] [address] Hardeep Rivera Calcium [Mass/Vol] 8.6 mg/dL Normal 8.5-10.1 [facility] Comment on above: Performed By: #### RANDALL OLSON #### [facility] [address] [address] [address] Hardeep Rivera Chloride [Moles/Vol] 98 mmol/L Normal 98-107 [facility] Comment on above: Performed By: #### RANDALL OLSON #### [facility] [address] [address] [address] Hardeep Rivera CO2 [Moles/Vol] 27.7 mmol/L Normal 21.0-32.0 [facility] Comment on above: Performed By: #### Deedee PINON UMICRO #### [facility] [address] [address] [address] Hardeep Rivera Creatinine [Mass/Vol] 1.42 mg/dL Critically high 0.55-1.02 [facility] Comment on above: Performed By: #### E KATHRIN, UMICRO #### [facility] [address] [address] [address] Hardeep Rivera EGFR-AF SOUTH AFRICAN 43 mL/min/1.73m2 Critically low >=60 [facility] Comment on above: Performed By: #### Deedee PINON UMICRO #### [facility] [address] [place] [address] Dr. Hardeep Rivera EGFR-NON AF SOUTH AFRICAN 36 mL/min/1.73m2 Critically low >=60 [facility] Comment on above: Performed By: #### Deedee PINON UMICRO #### [facility] [address] [address] [address] Hardeep Rivera Glucose [Mass/Vol] 119 mg/dL Critically high 74-106 [facility] Comment on above: Performed By: #### Deedee PINON, UMICRO #### [facility] [address] [address] [address] Hardeep Rivera Potassium [Moles/Vol] 3.9 mmol/L Normal 3.5-5.1 [facility] Comment on above: Performed By: #### Deedee PINON, UMICRO #### [facility] [address] [address] [address] Hardeep Rivera Sodium [Moles/Vol] 134 mmol/L Critically low 136-145 [facility] Comment on above: Performed By: #### Deedee PINON, UMICRO #### [facility] [address] [address] [address] Hardeep Rivera Urea nitrogen [Mass/Vol] 21.0 mg/dL Critically high 7.0-18.0 [facility] Comment on above: Performed By: #### RANDALL OLSON #### [facility] [address] [place], [place] [address] Dr. Hardeep Rivera Urea nitrogen/Creatinine [Mass ratio] 14.8 mg/mg Normal [facility] Comment on above: Performed By: #### RANDALL OLSON #### [facility] [address] [place], [place] [address] Dr. Hardeep Rivera Tacrolimus Bld-ncon 2021 Tacrolimus (Bld) [Mass/Vol] 4.7 ng/mL Low 5.0-20.0 [facility] Comment on above: Order Comment: Speci men [...] Test performed by chemiluminescent immunoassay using [employer] Spot Checker. Performed By: #### 1 1253-2 ####[facility]CL[facility] [id number] [place] [address] [place] Giardia, Direct, EIAon 07-23 G. lamblia Ag IA Ql (Stl) Negative Invalid Interpretation Code Negative [facility] Comment on above: Result Comment: Perf ormed at: [facility] [address] [id number] PhD Sommer Davis Performed By: #### 4 [id number] ####[facility] [id number] [place] [address] O & P EXAM, ROUTINE, REFLEXo n 08-22-2022 Ova and parasites identified Concentration Nom (Stl) Comment Invalid Interpretation Code [facility] Comment on above: Result Comment: No o va, cysts, or parasites seen. One negative specimen does not rule out the possibility of a parasitic infection. Performed at: [address] [id number] PhD Sommer Davis Performed By: #### 4 [id number] ####[facility] [address] [place] [address] O & P Exam, Routineon 2021 Ova and parasites identified LM Nom (Unsp spec) Final report Invalid Interpretation Code [facility] Comment on above: Result Comment: Thes e results were obtained using wet preparation(s) and trichrome stained smear. This test does not include testing for Cryptosporidium parvum, Cyclospora, or Microsporidia. Performed at: [address] [id number] PhD Sommer Davis Performed By: #### 4 [id number] ####[address] [place] [address] Consent for Procedure/Surger yon 07-19-2022 Consent for Procedure/Surgery [id number] #[id number]:127 Normal [facility] CMV IgMon 07-18-2022 CMV IgM IA Qn <30.0 Invalid Interpretation Code 0.0-29.9 [facility] Comment on above: Result Comment: Nega tive <30.0 Equivocal 30.0 - 34.9 Positive >34.9 A positive result is generally indicative of acute infection, reactivation or persistent IgM production. Performed at: [address] [id number] PhD Sommer Davis Performed By: #### 1 [id number] ####[facility] [address] [place] [address] Coding Summary.on 07-18-2022 Coding Summary. CD:[id number] G h0bWw+PGhlYWQ+MJ3ETAM yK86loSLcyM5II3xCCB5Y THEHDGEBFG7WEB4guNB2H RdmN6HqcfJo FkiocJCnPY60CMd2MDI8t TccAMlidO9ejZKhT3k5Pt YaIE27tO83GByePGEzPrI 3LjZpbjsgbWFy C2kiRxSlrVSuNmo+PHRhY mxlIHdpZHRoPScxMDAlJy IomDmjEU5bBy4yNOTlPXN vbGxhcHNlOiBj r4edJZDxWNlzCT6anMlaL 0YriQF3GYImf5b4Zc01lE I+GAZlUOH3iZwrBLwxu58 3DaAjs9jnZNB7 rRBiXJkvOHT5S39xt6D9H XKcCWMzJDO2hSL2uB4gpS sabagxZ5ZzxVLlRxY8DWT 9gSOvsP2acKur djytnT3dSmq+E57VMM6SR RMQBX1FNuq0N9WeEmjsxM I+YC64TQVtDZ65hFInaYF pl5riaIm2GiJy WOMcXJA3iSwgLMdsc0RaM YYjB10kzEDmf1N5TALreY pnjSLgGiTglFP5kC0jKPv fdndbz9xbziuz Wsgeb8waqb66xT53V22rV RffMQCqCIN1PVXfDRJbfE xelp1ijL5jBc7+LZiox2b sh4zbkGt7FlYz QKQzpcWkmDofUNZ6h5BsO b42L6IciNvne5MkMzt6gl 63cKPje6O2yOZ2OSpaYMO zyM7xKRkqMrH9 BTOfKzGpqT06xDMpPOseB v7quWnppIbcCY6xGUKmom ygEFDyvR7mUZVgqYPjrDb gVX5mYKVgkkgn p143KlVpURO0JUHttIAuK 0GvaW6oVkNkERJzFFXlF4 MzoHPySHbiN124IPvyYcL 2PSLooxVtG4Wx RJIjfXmlJfU5d5T6Fy7Ki 7IwkwuhUEB0WEmqFRX9Rc H2SfLeCwT6R5KyNvk8PRK jpAusNY2fN4Qf FXBimhzoyedceEW6HLUeL SPutY14rJWuEGeiOt7wj7 R8f073ROCbLUOctI91Bz6 udDogMTBwdCBU qR1mldofq5htczmuXyKiI QHrNYc7DUy5MJJxvScuSj MyNER9DwU1UPZ0yAKmyD0 dtDulibvdwZ7b Oyc+E38pwJ9kQWV0AIB0j djsYCSowjFsTF39YU88W1 RyPjwvdGFibGU+PGRpdiB xdVspUW6iFtVy m5gii6DdQVuoL9ApLGCbC NsoZda3QSUaDJU0vGO5cT 3cRNBpQEctx0Q6gCV9K8G ezsIdcw9da9mo CICdPDzbP63ywVPiw1D6W TPehDG1QLUfjEeeUhDeiQ 93Oyc+SCCilBdop0FaUzo mv7vly9ugeKl3 YuSbCNDeaaQvjCqcYHT2k 6GcMg21I58iLVluAERrTZ OkAFPwKRXxxYhjhv3rwO0 wIi8+PGNvbCB3 gYV3gJ7yGKHsDnW8ETzbS 373JfHarRHtTirue0yan8 wwjUl1SeYuVSAhocEitPj mTDH6d0UiBv65 C38yNAseGAZhOYIsAJWtS LAkdElmqj1vyP5nGt2+PC 6uf5cmqp32aZ41dTJ+PHR uPWL9eIflXGki AAGgqY8kGPcdBnT4WFUqV kFhlW07rAGrPBwoIb8ecJ iaiJgyLN1mMRMchbryb13 4CrEcg5vvPVUy yXXrORjnZNO6D67ai3L8H KNeJSPvAJA3fIE4yI5mwS lnbjogbGVmdDsgdmVydGl mUPovTCazL427 IHRvcDsnPlBhdGllbnQgT kAfEBv5S9RuSlq7LXDauP rzXH9elCTjNPenKh7bzDa zzOyjZB3zZKGe fnmmz021SnXpz8vtROPxb FFfDCifDUG2Z20hf8B3OX ZiFDTuKWS3nKK8wR7ftMg nbjogbGVmdDsg lyHapAevKKsdPVmbE545I HRvcDsnPkJpcnRoIERhdG L7XM05SW28lDNej2K5aSE 4Q5OuJRTeqkqm jicllVB4TEPnJSWrfP40Z h0oxSxgFc6mEHDiXKM3XA UnyFPhK5BxlA5pDwJyLRG wUTHnG4VkgOYj YYftA331UYunKlH9WOEcm dYmE1ZtSSJkvXovReU0d7 L0Xk1YV0D3EM27WF33bFE vl3A0mOF4V1Up ETAarfpykdybeSZ3YKBfU FDszG69Kg3fhQrxWb1pUC DsOFH4DOIbvSQoN4IacH1 yOiAjMDAwMDAw S1QulNLvFNhfA881BWnwA pO8MNGhrnRzX0HbRHEzwY ptJvD0m7F5Lp1BIBg2MS9 7LV81yENqr0S4 bVB4X6QnHDBpoalywvbtf AY6KFLuVFShfA42Kd3qhY ngLw0gKMCzEYF3WKNbqIW lE8GvuN8yPkGn NMKhHCUmU7CdpQKaIIskV 591FUucEsW9BRCydmZyZ8 LsTLBsfKrjGwI8n5P7Bd6 RBUUaTP27QHD4 pQZ1QQ17OR65V9QqEufgk GFibGU+PHRhYmxlIHdpZH RoPScxMDAlJyBzdHlsZT0 oPo9wYOJpRHIn iRyxgZTjEtNnc3aiGLSuR QpuYH7onApfQ5SemVL1HO Hcp1c6Ze91U48tO2MvmXZ +ZJZrpMJ7yED8 aV6yYqNbGxU6CPqlB032X sCotIEmYvyfc6mmb7kpyY v4KfU5QMNakfYqlSfdCHF 3y0WsHb53V25a IHdpZHRoPSIxNSUiIHZhb Bwdwz0ivR5bZk5+PGNvbC L6bYT0jP3pJpPbQxV5JNr gH981AjHcjFTr Psiqe0qyt8llmSb7CuLtA VSyzsXltCoiJTH5h7RlZb 99V5YwpFohd9GwZju7oo4 7yDNvu5G3sUQ1 Y1LlHVTnwljapGFgbMlsC I7lHTGncubpPBQqjO9iWW FfT4v2ZiRpIaN9DAmmF0E aqkZ7GBDwcRNq UEegWLL7V45ry2R0XSGwL NOkHTY2oCV9mX6wcMbnqu ogbGVmdDsgdmVydGljYWw oRTsvC669LBGp oNllATSadE2zKZFbgOUlv VheHN5uFZHcdozoXuADEg JFWEHWMOpEMBAZIV39TQ9 4aZPnc7U1sFH6 B7JvQJUxzfsblpsvsHO6Y JFjGKJtqT12mBWfAFawGl 7ms5D1j875ADByTITkwR7 4Tn7frPrbDBYy dGERvO3lytswb6fqcwdcE sZqGEGhQIu4XRc4GTOdlC ngKoIeBMO6BkI5FUS0zMO qzO1taQbnitvb hG5tOry+PXViIlApMZh9F TwvdGQ+KMAvVYO7uCscHG zmXUJyjD9cMHOmJ3p2ZwD oLaI4HCdeT3Vf HBKncubuVv75qI7hLfRfY hD8ZEebI7BesjA6GQGxpM RnOFogQRQ4B85id0P8XIO iJTOlUGL4tWL2 pT7ixUcapbnykUJaxQbye bAlcQakSKqtVLiiA878ZJ NqwRorBvg6KNwfMUUuCM3 5GF78qQUhi1O3 vRI9N4EvMKNtsuspidutw NC6FRLbQBLrfD75lOUjCX erEn4go8F1u858GRKhPQE baD10Pc9fqOut BLJusZAGkN9huodku1ffq jeqAzUtJYUgBMp7LLh4OC TbrGmuTkClROD2RtI5JAU 8rSCnfH3qfNbr ejyylP9qItb+RmVtYWxlP P46GS76nFNcw7E3gHJ2U7 ZdWJWflqofzrasvRW7BMK nAOMfsN37gROk QEawXk2ju8I5i092ZCUvR SFztS33Qe3wvRndFWGqcR OKcZ6twgesv9cqzrngPjX kSERqGTy5AIu7 LIGkfFqhEzBpEKL8PlM1Q CP3wILxbQ6rhOztmruoyA 9wOyc+C9R3rCE8vWEvgHn vdGQ+HC54bk33 W7KfMarcFnv7NQHsOLM4e GR3aN4iVOOuACqru0D5qR U2O8FnyzPyie3ga7ydUEX vGFujM92ssKTn u9Z6NCVjdXQ4AUButEvyS kHfeS45Unl+PGNvbGdyb3 KwHskji3lmt5rlqEt4WpT wJSIgdmFsaWdu GOC1p5TlDu79T81iFUdzV HRoPSIzMCUiIHZhbGlnbj 9puW5bQj7+VFSmxTL0zQO 4oZ3mIwEeThN4 OFflP113IsEmuCWnGbsad 4hfy3fuqNz5FcChTHTnko HaaZpyYDX8d9BqZn27E2E owKdbt8IrHzv8 fl70fTDti7G9rLE2K1QxX KRmjienhOPefChmDA0mAW ZsdvmsAWAgxJ0rPYLlI2z 5QfCtEaZ7LBuk I6TfgzL2GBUtzKNbCJSxz IOCuQ5bwdykx3ljwzweUk YgXDLnWLq5GBt7KYPahPg sJzXyKPN1NlP7 QZO9jESinI6nqGfakueso G9wOyc+QNo4z2bcjZDoEW 9dhFX7TB88FQ79zQSmj9D 2nTX1G9CvIDCk liteotlajCF8TECxGYMrh N06Sq0ucKluKk3aQMCdZM K1GIVykPJsS7MhcP3bYgD mTFDkQLKbP0Pr mWZoNQpwH362BQstIpH4J AFkdcUdF8LiRUBvtAjeCy I3b5O3Tr3MBN43IR14ME0 1nFJvd6A1iAN0 I5HcAVKsnofzecbzbFA3L MFlIHUqzR89Ig2xkOrhEh 6sDCCuQRJ7MHZueOFlK3K tcR7aWuFfNBEy FYGqP0NgmEZkEGbwG926W GcmUrR8PSPjwkMfT7UhUP DvlElsXoR4d8H3Lj7ZXr8 9UG18UM25cXRb j3B6uTS1H3NxRTDzlqwem rnvbLH5LHJsCOLkwI41Em 5xgEydVj8rGOOzOXV2OJS puLRyL8IopJ0z MxUnYLIoGPTpB1ZpfBDnR ItmN298EOtlDrD6POMdbu CoF9ClBCEccPjbEyY1g7S 1La5DLSttfnt2 K8UvFmvepWA+ZF31BMDrF B84oHDmuQXdo8trvAh9To AiAWZjFNU4oMgxHLhke8M qWIPuX49eyENj c2U6 (more content not included)... [facility] Coding Summary. CD:[id number] G h0bWw+PGhlYWQ+NY2SXNH iN27msARobK4XF9aELB5G EBRPUOCGOH0UED5hmYM5P DlwT5RkugGm MttzfAQeIF38TFw3DKT3f UlqIKtsiZ0zuOXpD8m7Rj QcEO83sZ28JKftWVPxEnK 3LjZpbjsgbWFy B7mpJpRnmCHvLct+PHRhY mxlIHdpZHRoPScxMDAlJy DdhOjoEG4yVc7dJMGyRTX vbGxhcHNlOiBj s3byITFrKKejGP7vfUcfA 4EisUT1RSOus6t5Es09pF I+WMViJUP1kNueSFodw49 6GlVob1bbKEM6 gSQbRYmbJNL3C42iv0J2C GFoXRTdDUC0eAU5kO8mrE hesdasN5WlaKWqPhF8PLT 8bNLqwH8naMkc pevoiT1kHwz+N36AQW0FW NVYTF6KLta0K8UhFwetyT I+UZ24KKUzSE12rIJmyNZ bi1tkxBy4QlKd XBLaMTK0rZpxHLkqv5KzQ NAvQ15usSGpi2J2VRRxxV brtFShTmMhpUB3xZ1rLKj fiarid6dfzimn Hyojn6vior69fQ90H94lH FjkPYMkEQG2SQGvHLWkwH ewxe3xhY7yUm5+KScfx0o am4irfPm0EyUg IDFlstMmgTtrLOC5f3CkN l44S0BkoItxk4YvVmm3gf 68xEOaa6W8hVR7QFqfDAA kbT3yJMqzOjE5 KAQsOjZcxR35hKNvBEznL x4ddEgzaDrlBK7dXPFrpr qiPWOmtL9tHMCuqHZhhXx sZG8mGNJdbtsv l464NmKsADZ6XWWumIXfD 0MrdW5gGeJwOIFxBCVeZ9 HqhVWiFJyrU738VWvnNjK 6QHCefhOpN0Rx IITnxMysRvR6s9V1Ts4Ra 1QmxeanBZW8HBzkAPY9Rx X0HiHiMdV7L2HyTes0AAJ xaSuaQR1yH2Ko ZZYbqbepnjrfuUT7CPWsT YFnrQ93fTYhRCkoSd5ky9 V2p709JQEsXCUifR05Nm0 udDogMTBwdCBU cN4onkpbl0ceqhmeLvDsQ YQoNDg0HJw2LIPnqCqaFn QqOQK5KhR5BCX0kYEvpB9 pyXcgneoleO2t Oyc+W63mzI7rAAU9TDC7z xdjMDSoxwBlBS26IS10R7 RyPjwvdGFibGU+PGRpdiB jnEnhVJ5kJbEv t1lzu9AgEOjtB9FuTPRvJ YcwUah3BMQjARD6aIJ7cC 6zKFQoHOsba5Z1zHC6Z7L ecjZroy6fk1ah GGCcYDoyF16uuRFkq1Q1O ZSptNJ1EUMclJwuVcQdhM 93Oyc+VGZdcHzft7OcTdr ku9fub2fvrHu7 RnRvZAYksgStzAozUWB0x 5HbJz87P21nBXjsXAGgFH KfWVViWEForOmugv6wuG6 wIi8+PGNvbCB3 xEM3iJ3iQKJoOpJ5CAvxK 120EqJvoDRePrzvt0ndn8 blnJc1ZfBwDLHedyQpzJr nIGJ6f9DqQg35 S96aMPmeTRKyRRNiXDRaD VVekPmhxh6bbO6iEf0+PC 1rd3zept76qO46aJO+PHR uEQW7fYjoSXlm EXBpiR9aXZunVyC9XOGiE yPcmV11dWUyLWemCe1ztT yrwLkfKS6wPWIjyvtmf03 3CtYqv6ikOPFn eVDrMUqgBAC6I03vm5B0Y IAuBJUjYDG9aEA8nL9hxD lnbjogbGVmdDsgdmVydGl dRHmjWUlbX481 IHRvcDsnPlBhdGllbnQgT uAmDTq0K7UhUlc5MCXowV lhKP4irTCtOXuaKg3hhAk quBnrVS8zFRLr gnqap519VwGwb4nnFCYar UMhSBtfGJM0F30ze2L3OR KeFHHgUKM6qGJ8vT5spYp nbjogbGVmdDsg iqGjfVmdXCccPKijI130X HRvcDsnPkJpcnRoIERhdG H7DF64QI25xPBvt0D3zPB 1I5YuHTLoprad fsbntKY2EUQtIQDifW20C w8ojBqjSw0hFGJuPON7OH BatZPkS6CinD7tRwJaWVH rROYbY1FetFSg QVjcE403HOqgXwY2TQLxf sWdN2LhCUKqdZdiXkW6t7 L1Ml3JX2V9LB38FL30xGS gb8X6tPG1X3Dg ZPEfltcqequabDU4ZCZnO PXdfL86Pn0jrFqfNg7dHO FmWED1KSZbzMPgI0CssV4 yOiAjMDAwMDAw Z2TpqCJzEByhN510VMlrL vF0DZCtsjNsG1WrRGJsoI dhXnW6w9F3Il8WMRz3JB6 2ZK89oQSjg7R5 hUJ3Y4FcRCBdgpglnuqxk YX7NOJaHIRmyC81Um9ziL hsWf5zRRCyEQG3NKPneJZ nW0LaxI4yZiWe TSJeULPoL7YiiRIcAXazS 995RMpxAyT3SYIlmzFzV0 KkABFsuKxuRwT0n1E3Go1 NSXCtXQ74MMK7 xQT2HZ12VP17Z4RkGvaal GFibGU+PHRhYmxlIHdpZH RoPScxMDAlJyBzdHlsZT0 gLh1tVAOiJPZd iTvlxBLsLrJfx2brVTYzF EfrGT2nxAbzX6QdaCB2PG Hmj4x4En96X13rJ6KqhVL +JNGsbKG3aYT3 gX1vYpQeEpL0HYarV653L aBstIFgPgsou8col8caeC m5JuN0RHWldzQtlOmaYGP 3d5QdOz75U67s IHdpZHRoPSIxNSUiIHZhb Aaxxb3xcP8pOy6+PGNvbC E3yMH9fW4tYlXnLhN1CBu lQ856GvTfhOZr Yjpow8orc4iuzSx4NtZaR FYnjzGijDihDCY4y2YyQc 04O8YguDysy5NvErm1qy6 4gYUce4F3kWF9 I2AcHLNbijnpvOFloDwyX E5vEVGwrhvcSSYpwC5tQR TnK2r4QbTcLkD0ZVeoU8E kjjD6GJZpqIGf MMtaOYM4T93ge8V3EYNvV CNzQLM8iQR2gN7soDfisi ogbGVmdDsgdmVydGljYWw uREolY393NASz cYwjBTRmnT0vPDZtsRUge LmiXX8sUUNkoatiGhWPPi EMFTVESNkYYXFSWK14RS3 6xMJkb8V5hMK4 I6MvKIJnygwcnbrezTL6W TEyEUSchS32sTLyCFecGy 8li1S9r977OULeVIEjnR8 6Tj8baXajSHXs yEWWzB9tttvls9cmwlmlA cYkHECnBRb6MWx6SSZzaC axAkZlFES9OzS8GQE5gYV ruM5ynZfvahmu bB6tNfy+FZRxUcKzDHm7A TwvdGQ+RIFaYNV9rYeaXU yyPGAsrT5oAPTkF5u2UhR lZsI3TWkeH4Ah VXSdsgkqFv95gT2kDaBsE dC6CDyvS9PwaiT0CYWjeO ZoUBobWWV3N66mn8N6UHA bYWAiSSU7yYA2 aK5prXwszrajdRGiwYbyd pYmsFuoFLlmMUwfB137NC SscVvwRtu7XWbtBWQeNS3 0JO61uDMho3Q8 fNV9Y3TnRMKbpzknxlljd IF2KWTuLLXghV42bRZhQY deGl7ql6G1r899IULvKCT sdB11Ps3olYas RKNkuVTUgW7wchizg6bgp vvqPpMyLRJqLVa4EQa4EQ SjqNpeCsWnGFD2NnM8VWO 5pONaoL0sgCeq xshpyV8dYyh+RmVtYWxlP O06LR38sRNdf4Y9zSU4K7 DtMNSzgjzorbwueKQ5MKB hEQSnbD32gOPk UMyiYh9kb3N8n358LKPyM WInjY99Fw9fuWbfRLZbrQ OEtN4viyyub4lgdvjjUcW gLLAaEFv5QXk0 QKVloXqcGfYbKVR1HgA4T GJ5xJEswV1ebJineibxvN 9wOyc+BXWdZHWul3Dqh3P mQC75CI74L0Sy PjwvdGFibGU+PHRhYmxlI HdpZHRoPScxMDAlJyBzdH qePM2bAg7fDVZsZOKnkSe deQFjHcUti3qm DMSgWCzcOY3aaDtpP3Trd AN2GZQqr9z3Xk16D79cI8 JvdXA+KJLwrRP6vZI6bI7 gAeTvFzN6PJne X347PaErrKMeNaxbz5yve 4miyLc6QjOgLJXjdiHmxS oqTPI8f3DzCy97R56nZDo pZHRoPSIyMCUi WLCuoPejme0cnK5dQq0+P JDjlAX7rVZ5lO3sOrBsMp K7JHgpC490FeGioAMnYrp tP29wN6TpaNP+ XHOcUol1XGIzmNifSP9lq ERoIPsaTb9uESQ7VgKwBf NpQAluR0QiFHYkgwechjr joZF3PKSaYKPk jA63Ik3wdPbmGd0yWFJtL AD1YHTthGFjL2BknT8dQy ShVQYcGJBvJ0NesSGfRBd wH458ZNzbShO2 IKPuurWpY4RtUFSzjYudD xN2e0C8Wi1FaRblpHWkZW 5uBxUgYRn6F4SbLei8SSR rkKwuOF0pmIUn SXneNr0gzGuvcXbiNK0xI UAhgevvy600IoFmk9mlXV SeaWCvWLuvYWT2C37un1P 0VDUmBXEiCEB7 mRH8rU9jcKuqakqpgSLdx DsgdmVydGljYWwtYWxpZ2 90VOIufFavUtEZTmn9L4T mByr4GYPdvTdp ZU4poTKkIJoyYy0xbVeqt PevXM9jVPLjssvur352Ti Tmg0yoJOLalEClOQtiBJA 7N33zu2O3RQOk NTMuVPW5lFF6xH3ajHfoe jogbGVmdDsgdmVydGljYW maHLwjX115TZIwyUvzXt9 ZAts9I1QpJge4 UMXtmAigTC4msLZsMTojA j2zcEqmvSmzIV3uMONqrd jai328BvGsz9wrJAJyaLX bEWjhNUT8B53d t0Y6UXKmDCPnBDJ4eMS6f Z7bjYyxskcbeFJrhYyatw FeyQcxVWfqTErqT358AAN vcDsnPlBheWVy OjwvdGQ+XY07af09F5QdU utdEvp8IMLgYPC8rPN3cJ 0pSFKlICcnn1E4oUN6E7X jgvIzcv9qj3ll YXBz (more content not included)... Normal [facility] Enteric Panel by PCRon 07-18 C. coli+jejuni+upsaliensi s DNA ULICES+non-probe Ql (Stl) Not detected Normal [facility] Comment on above: Result Comment: Test ing was performed utilizing reverse assistant film editor (RT), polymerase chain reaction (PCR), and array [...] nulcleic acid test. Performed By: #### 4 [id number], [id number], [id number], [id number], [id number], [id number] ####[facility] [address] [place] [address] E. coli stx1+stx2 genes ULICES+non-probe Ql (Stl) Negative Normal [facility] Comment on above: Performed By: #### 4 [id number], [id number], [id number], [id number] ####[facility] [address] [place] [address] Enteric Panel by PCR Negative Normal [facility] Enteric Panel Intrl QC Pass Normal [facility] Comment on above: Result Comment: Test ing was performed utilizing reverse assistant film editor (RT), polymerase chain reaction (PCR), and array [...] 1 and 2. Performed By: #### 4 [id number], [id number], [id number], [id number], [id number], [id number] ####[facility] [address] [place] [address] Norovirus genogroup I+II RNA ULICES+non-probe Ql (Stl) Detected Abnormal [facility] Comment on above: Result Comment: Resu lts Called To [facility] for Dr. Jama By [facility] [place] And Read Back For Confirmation On 07/18/2022 08:49:23 EDT. Performed By: #### 4 [id number], [id number], [id number], [id number], [id number], [id number] ####[facility] [address] [place] [address] Rotavirus A RNA ULICES+non-probe Ql (Stl) Not detected Normal [facility] Comment on above: Performed By: #### 4 [id number], [id number], [id number], [id number], [id number], [id number] ####[facility] [address] [place] [address] S. enterica+bongori DNA ULICES+non-probe Ql (Stl) Not detected Normal [facility] Comment on above: Result Comment: This test result should be correlated with clinical presentations and medical history by a healthcare provider to determine its clinical significance. Performed By: #### 4 [id number], [id number], [id number], [id number], [id number] ####[facility] [address] [place] [address] Shigella species+EIEC invasion plasmid antigen H ipaH gene ULICES+non-probe Ql (Stl) Not detected Normal [facility] Comment on above: Performed By: #### 4 [id number], [id number], [id number], [id number], [id number], [id number] ####[facility] [address] [place] [address] V. cholerae+parahaemolyti cus+vulnificus DNA ULICES+non-probe Ql (Stl) Not detected Normal [facility] Comment on above: Performed By: #### 4 [id number], [id number], [id number], [id number], [id number], [id number] ####[facility] [address] [place] [address] Y. enterocolitica DNA ULICES+non-probe Ql (Stl) Not detected Normal [facility] Comment on above: Performed By: #### 4 [id number], [id number], [id number], [id number], [id number], [id number] ####[facility] [address] [place] [address] C. diff by PCRon 07-17-2022 Clostridium difficile by PCR see comment Invalid Interpretation Code [facility] Comment on above: Result Comment: Unab [...] its clinical significance. Performed By: #### 4 [id number], [id number], [id number], [id number], [id number], [id number] ####[facility] [address] [place] [address] Fecal WBC Lactoferrinon 07-02 Fecal WBC Lactoferrin Positive Abnormal Negative [facility] Comment on above: Result Comment: The semi-quantitative detection of elevated levels of fecal lactoferrin is a marker for fecal leukocytes and an indication of intestinal inflammation. Performed By: #### 4 [id number], [id number], [id number], [id number], [id number], [id number] ####[facility] [address] [place] [address] Consent for Treatmenton 07-02 Consent for Treatment [id number]:127 Normal [facility] Gastroenterology Office/Clin ic Noteon 07-15-2022 Gastroenterology Office/Clinic Note Chief Complaint f/u ER- abd pain, diarrhea and vomiting HPI Staff This is a 76 year old female who presents today for a referral by Sue for abnormal radiology testing. Patient seen in [facility] 01/2022 for complaints of diarrhea, abdominal pain and nausea.- CT and labs completed History of Present Illness Sylvia presents today for abdominal pain, diarrhea, and vomiting. She was recently seen in the [facility] emergency room with abdominal pain, diarrhea, and vomiting. She notes that she had a heart transplant in [place] in 2017. Afterwards she experienced diarrhea which [...] patient had a recent CT scan at [facility] that showed a small lesion in [...] by h (more content not included)... Normal [facility] Comment on above: Result Comment: Elec [...] Pancreatic insufficiency Pancreatic lesion Valvular heart disease [facility] 07-05-2022 [facility] SYLVIA HERRERA ([id number]) 1945 F Date Time Provider Department 07/05/22 SHO CROWLEY [facility] During your visit today, we recorded the following information about you: Sho Crowley APRN.COUNTY ADVISER 07/05/2022 10:48 AM Signed 07/03/22 labs: FK: [...] another team. Sho Dmitriy MONTANO CNP Pager: [phone] July 05, 2022 10:42 AM Post Heart [...] transplant. No Dr Caldera: Rfl: TACROLIMUS/FK-506 BL [[id number]] Order #: [id number] FUTURE Prescriptions as of 07/05/2022 - tacrolimus [...] mg by mouth three times daily. - kcvvbo-rhebcjjb-newse se (CREON) 24,000-76,000 -120,000 unit cpDR Take [...] 09/02/2019 A (more content not included)... Normal [facility] BOX TEST SENT OUTon 07-03-20 SENT TO REF LAB 07/03/2022 Normal [facility] Comment on above: Performed By: #### RANDALL OLSON #### [facility] [address] [place] [address] Dr. Hardeep Rivera CBC AUTO DIFFon 07-03-2022 BASO # 0.0 103/ul Normal 0.0-0.1 [facility] Comment on above: Performed By: #### C BC #### [facility] [address] [place] [address] Dr. Hardeep Rivera Basophils/100 WBC (Bld) 0.3 % Normal 0.2-2.0 [facility] Comment on above: Performed By: #### C BC #### [facility] [address] [place] [address] Dr. Hardeep Rivera EO # 0.1 103/ul Normal 0.0-0.7 [facility] Comment on above: Performed By: #### C BC #### [facility] [address] [place] [address] Dr. Hardeep Rivera Eosinophils/100 WBC (Bld) 0.9 % Normal 0.9-7.0 [facility] Comment on above: Performed By: #### C BC #### [facility] [address] [place] [address] Dr. Hardeep Rivera Erythrocyte distribution width (RBC) [Ratio] 12.2 % Normal 11.0-15.0 [facility] Comment on above: Performed By: #### C BC #### [facility] [address] [place] [address] Dr. Hardeep Rivera Hematocrit (Bld) [Volume fraction] 42.3 % Normal 36.0-48.0 [facility] Comment on above: Performed By: #### C BC #### [facility] [address] [place] [address] Dr. Hardeep Rivera Hemoglobin (Bld) [Mass/Vol] 14.0 g/dL Normal 12.0-16.0 [facility] Comment on above: Performed By: #### C BC #### [facility] [address] [place] [address] Dr. Hardeep Rivera IG # 0.04 10e3/ul Critically high 0.00-0.03 [facility] Comment on above: Performed By: #### C BC #### [facility] [address] [place] [address] Dr. Hardeep Rivera IG % 0.5 % Normal 0.0-0.5 [facility] Comment on above: Performed By: #### C BC #### [facility] [address] [place] [address] Dr. Hardeep Rivera LYMPH # 0.8 103/ul Critically low 1.2-3.8 [facility] Comment on above: Performed By: #### C BC #### [facility] [address] [place] [address] Dr. Hardeep Rivera Lymphocytes/100 WBC (Bld) 10.9 % Critically low 20.5-60.0 [facility] Comment on above: Performed By: #### C BC #### [facility] [address] [place] [address] Dr. Hradeep Rivera MANUAL DIFF REQ NO Normal [facility] Comment on above: Performed By: #### C BC #### [facility] [address] [place] [address] Dr. Hardeep Rivera MCH (RBC) [Entitic mass] 29.7 pg Normal 26.7-34.0 [facility] Comment on above: Performed By: #### C BC #### [facility] [address] [place] [address] Dr. Hardeep Rivera MCHC (RBC) [Mass/Vol] 33.1 g/dL Normal 29.9-35.2 [facility] Comment on above: Performed By: #### C BC #### [facility] [address] [place] [address] Dr. Hardeep Rivera MCV (RBC) [Entitic vol] 89.8 fL Normal 81.0-99.0 [facility] Comment on above: Performed By: #### C BC #### [facility] [address] [place] [address] Dr. Hardeep Rivera MONO # 0.9 103/ul Critically high 0.3-0.8 [facility] Comment on above: Performed By: #### C BC #### [facility] [address] [place] [address] Dr. Hardeep Rivera Monocytes/100 WBC (Bld) 11.1 % Normal 1.7-12.0 [facility] Comment on above: Performed By: #### C BC #### [facility] [address] [place] [address] Dr. Hardeep Rivera NEUT # 5.8 103/ul Normal 1.4-6.5 [facility] Comment on above: Performed By: #### C BC #### [facility] [address] [place] [address] Dr. Hardeep Rivera Neutrophils/100 WBC (Bld) 76.3 % Critically high 43.0-75.0 [facility] Comment on above: Performed By: #### C BC #### [facility] [address] [address] [address] Hardeep Rivera Platelet mean volume (Bld) [Entitic vol] 9.5 fL Normal 9.5-13.5 [facility] Comment on above: Performed By: #### C BC #### [facility] [address] [place] [address] Dr. Hardeep Rivera PLT 191 103/ul Normal 150-450 [facility] Comment on above: Performed By: #### C BC #### [facility] [address] [address] [address] Hardeep Rviera RBC 4.71 106/ul Normal 4.20-5.40 [facility] Comment on above: Performed By: #### C BC #### [facility] [address] [place] [address] Dr. Hardeep Rivera WBC 7.6 103/ul Normal 4.0-11.0 [facility] Comment on above: Performed By: #### C BC #### [facility] [address] [place] [address] Dr. Hardeep Clark 07-03-2022 CNPN Telephone (J[facility]) SYLVIA HERRERA ([id number]) 1945 F Date Time Provider Department 07/03/22 SOY MCCANN [facility] During your visit today, we recorded the following information about you: Linden Faustina 07/03/2022 1:02 PM Signed Patient had labs drawn 07/03/22, uploaded to [employer] [facility]. Allergies As of Date: 07/03/2022 Noted [...] mg by mouth three times daily. - ozrwtu-gnlyjgwr-hxnrf se (CREON) 24,000-76,000 -120,000 unit cpDR Take [...] 07/03/22 Normal [facility] PROF CHEM 8 (BAS METB)on Anion gap [Moles/Vol] 12.9 mmol/L Normal [facility] Comment on above: Performed By: #### RANDALL OLSON #### [facility] [address] [place] [address] Dr. Hardeep Rivera Calcium [Mass/Vol] 9.0 mg/dL Normal 8.5-10.1 [facility] Comment on above: Performed By: #### RANDALL OLSON #### [facility] [address] [place] [address] Dr. Hardeep Rivera Chloride [Moles/Vol] 98 mmol/L Normal 98-107 [facility] Comment on above: Performed By: #### RANDALL OLSON #### [facility] [address] [place] [address] Dr. Hardeep Rivera CO2 [Moles/Vol] 28.1 mmol/L Normal 21.0-32.0 [facility] Comment on above: Performed By: #### RANDALL OLSON #### [facility] [address] [place] [address] Dr. Hardeep Rivera Creatinine [Mass/Vol] 1.64 mg/dL Critically high 0.55-1.02 [facility] Comment on above: Performed By: #### RANDALL OLSON #### [facility] [address] [address] [address] Hardeep Rivera EGFR-AF SOUTH AFRICAN 37 mL/min/1.73m2 Critically low >=60 [facility] Comment on above: Performed By: #### E KATHRIN, UMICRO #### [facility] [address] [address] [address] Hardeep Rivera EGFR-NON AF SOUTH AFRICAN 30 mL/min/1.73m2 Critically low >=60 [facility] Comment on above: Performed By: #### E KATHRIN, UMICRO #### [facility] [address] [place] [address] Dr. Hardeep Rivera Glucose [Mass/Vol] 114 mg/dL Critically high 74-106 T [facility] Comment on above: Performed By: #### Deedee PINON, UMICRO #### [facility] [address] [place] [address] Dr. Hardeep Rivera Potassium [Moles/Vol] 4.0 mmol/L Normal 3.5-5.1 [facility] Comment on above: Performed By: #### Deedee PINON UMICRO #### [facility] [address] [place] [address] Dr. Hardeep Rivera Sodium [Moles/Vol] 135 mmol/L Critically low 136-145 Th [facility] Comment on above: Performed By: #### Deedee PINON, UMICRO #### [facility] [address] [place] [address] Dr. Hardeep Rivera Urea nitrogen [Mass/Vol] 24.0 mg/dL Critically high 7.0-18.0 [facility] Comment on above: Performed By: #### Deedee PINNO UMICRO #### [facility] [address] [place] [address] Dr. Hardeep Rivera Urea nitrogen/Creatinine [Mass ratio] 14.6 mg/mg Normal [facility] Comment on above: Performed By: #### Deedee PINON, UMICRO #### [facility] [address] [place] [address] Dr. Hardeep Rivera Tacrolimus d-[facility] 2021 Tacrolimus (Bld) [Mass/Vol] 12.4 ng/mL Normal 5.0-20.0 [facility] Comment on above: Order Comment: Speci men [...] situation. Test performed by chemiluminescent immunoassay using [employer]. Performed By: #### 1 [id number] ####[facility] LABCLIA [id number] [place] [address] [place] MG MAMM SCREEN 3D TRISHA CADon 05-28-2022 MG MAMM SCREEN 3D TRISHA CAD Patient: SYLVIA HERRERA Exam Date: 05/28/2022 : 1945 Gender:F Ordering : DR TAO ROONEY . Admission #: [id number] Family : Order #: [id number] CLICK HERE TO VIEW EXAM RADIOLOGY REPORT [...] Treatments None Family Cancers None LOCATION: [facility] BREAST COMPOSITION: Heterogeneously dense,which may obscure [...] Ibrahim MD on 05/28/2022 at 10:20 Normal [facility] Physician Referralon 022 Physician Referral [id number] .[id number]:127 Normal [facility] CNPNon 05-08-2022 CNPN Telephone ([facility]ARD [facility]) SYLVIA HERRERA ([id number]) 1945 F Date Time Provider Department 05/08/22 LOIDA MATHIAS [facility] During your visit today, we recorded the following information about you: Linden Weems 05/08/2022 11:50 AM Signed Patient had labs drawn 05/07/22, uploaded to scanned docs. Linden Weems Administrative Mailroom Messenger Loida Mathias APRN.ODETTE 05/08/2022 3:21 PM Signed [...] transplant. No Dr Ellerp: Rfl: TACROLIMUS/FK-506 BL [[id number]] Order #: [id number] FUTURE Prescriptions as of 05/08/2022 - tacrolimus [...] mg by mouth three times daily. - pkrmyj-ihsojhzg-qfwje se (CREON) 24,000-76,000 -120,000 unit cpDR Take [...] 05/19/2014 [facility] (more content not included)... Normal [facility] BOX TEST SENT OUTon 05-07-20 22 SENT TO REF LAB 05/07/2022 Normal [facility] Comment on above: Performed By: #### RANDALL OLSON #### [facility] [address] [place] [address] Dr. Hardeep Rivera CBC AUTO DIFFon 05-07-2022 BASO # 0.0 103/ul Normal 0.0-0.1 [facility] Comment on above: Performed By: #### RANDALL OLSON #### [facility] [address] [place] [address] Dr. Hardeep Rivera Basophils/100 WBC (Bld) 0.4 % Normal 0.2-2.0 [facility] Comment on above: Performed By: #### RANDALL OLSON #### [facility] [address] [place] [address] Dr. Hardeep Rivera EO # 0.1 103/ul Normal 0.0-0.7 [facility] Comment on above: Performed By: #### RANDALL OLSON #### [facility] [address] [place] [address] Dr. Hardeep Rivera Eosinophils/100 WBC (Bld) 1.0 % Normal 0.9-7.0 [facility] Comment on above: Performed By: #### RANDALL OLSON #### [facility] [address] [place] [address] Dr. Hardeep Rivera Erythrocyte distribution width (RBC) [Ratio] 12.6 % Normal 11.0-15.0 [facility] Comment on above: Performed By: #### RANDALL OLSON #### [facility] [address] [place] [address] Dr. Hardeep Rivera Hematocrit (Bld) [Volume fraction] 44.0 % Normal 36.0-48.0 [facility] Comment on above: Performed By: #### Deedee PINON, UMICRO #### [facility] [address] [place] [address] Dr. Hardeep Rivera Hemoglobin (Bld) [Mass/Vol] 14.0 g/dL Normal 12.0-16.0 [facility] Comment on above: Performed By: #### E KATHRIN, UMICRO #### [facility] [address] [place] [address] Dr. Hardeep Rivera IG # 0.02 10e3/ul Normal 0.00-0.03 [facility] Comment on above: Performed By: #### Deedee PINON, UMICRO #### [facility] [address] [place] [address] Dr. Hardeep Rivera IG % 0.3 % Normal 0.0-0.5 [facility] Comment on above: Performed By: #### Deedee PINON, UMICRO #### [facility] [address] [place] [address] Dr. Hardeep Rivera LYMPH # 0.6 103/ul Critically low 1.2-3.8 [facility] Comment on above: Performed By: #### Deedee PINON, UMICRO #### [facility] [address] [place] [address] Dr. Hardeep Rivera Lymphocytes/100 WBC (Bld) 8.2 % Critically low 20.5-60.0 [facility] Comment on above: Performed By: #### Deedee PINON, UMICRO #### [facility] [address] [place] [address] Dr. Hardeep Rivera MANUAL DIFF REQ NO Normal [facility] Comment on above: Performed By: #### E RUR, UMICRO #### [facility] [address] [place] [address] Dr. Hardeep Rivera MCH (RBC) [Entitic mass] 29.4 pg Normal 26.7-34.0 [facility] Comment on above: Performed By: #### HARI OLSONRO #### [facility] [address] [place] [address] Dr. Hardeep Rivera MCHC (RBC) [Mass/Vol] 31.8 g/dL Normal 29.9-35.2 [facility] Comment on above: Performed By: #### Deedee PINON UMICRO #### [facility] [address] [place] [address] Dr. Hardeep Rivera MCV (RBC) [Entitic vol] 92.2 fL Normal 81.0-99.0 [facility] Comment on above: Performed By: #### HARI OLSONRO #### [facility] [address] [place] [address] Dr. Hardeep Rivera MONO # 0.8 103/ul Normal 0.3-0.8 [facility] Comment on above: Performed By: #### HARI OLSONRO #### [facility] [address] [place] [address] Dr. Hardeep Rivera Monocytes/100 WBC (Bld) 9.6 % Normal 1.7-12.0 [facility] Comment on above: Performed By: #### HARI OLSONRO #### [facility] [address] [place] [address] Dr. Hardeep Rivera NEUT # 6.3 103/ul Normal 1.4-6.5 [facility] Comment on above: Performed By: #### HARI OLSONRO #### [facility] [address] [place] [address] Dr. Hardeep iRvera Neutrophils/100 WBC (Bld) 80.5 % Critically high 43.0-75.0 [facility] Comment on above: Performed By: #### HARI OLSONRO #### [facility] [address] [place] [address] Dr. Hardeep Rivera Platelet mean volume (Bld) [Entitic vol] 10.1 fL Normal 9.5-13.5 [facility] Comment on above: Performed By: #### HARI OLSONRO #### [facility] [address] [address] [address] Hardeep Rivera PLT 188 103/ul Normal 150-450 [facility] Comment on above: Performed By: #### HARI OLSONRO #### [facility] [address] [place] [address] Dr. Hardeep Rivera RBC 4.77 106/ul Normal 4.20-5.40 [facility] Comment on above: Performed By: #### AKSHAT OLSONICRO #### [facility] [address] [place] [address] Dr. Hardeep Rivera WBC 7.8 103/ul Normal 4.0-11.0 [facility] Comment on above: Performed By: #### HARI OLSONRO #### [facility] [address] [place] [address] Dr. Hardeep Rivera PROF CHEM 8 (BAS METB)on Anion gap [Moles/Vol] 11.9 mmol/L Normal [facility] Comment on above: Performed By: #### HARI OLSONRO #### [facility] [address] [place] [address] Dr. Hardeep Rivera Calcium [Mass/Vol] 8.7 mg/dL Normal 8.5-10.1 [facility] Comment on above: Performed By: #### Deedee PINON UMICRO #### [facility] [address] [place] [address] Dr. Hardeep Rivera Chloride [Moles/Vol] 99 mmol/L Normal 98-107 [facility] Comment on above: Performed By: #### Deedee PINON UMICRO #### [facility] [address] [place] [address] Dr. Hardeep Rivera CO2 [Moles/Vol] 27.1 mmol/L Normal 21.0-32.0 [facility] Comment on above: Performed By: #### Deedee PINON UMICRO #### [facility] [address] [place] [address] Dr. Hardeep Rivera Creatinine [Mass/Vol] 1.62 mg/dL Critically high 0.55-1.02 [facility] Comment on above: Performed By: #### RANDALL OLSON #### [facility] [address] [place] [address] Dr. Hardeep Rivera EGFR-AF SOUTH AFRICAN 37 mL/min/1.73m2 Critically low >=60 [facility] Comment on above: Performed By: #### RANDALL OLSON #### [facility] [address] [place] [address] Dr. Hardeep Rivera EGFR-NON AF SOUTH AFR[place] 31 mL/min/1.73m2 Critically low >=60 [facility] Comment on above: Performed By: #### RANDALL OLSON #### [facility] [address] [place] [address] Dr. Hardeep Rivera Glucose [Mass/Vol] 73 mg/dL Critically low 74-106 Th [facility] Comment on above: Performed By: #### RANDALL OLSON #### [facility] [address] [place] [address] Dr. Hardeep Rivera Potassium [Moles/Vol] 4.0 mmol/L Normal 3.5-5.1 [facility] Comment on above: Performed By: #### RANDALL OLSON #### [facility] [address] [place] [address] Dr. Hardeep Rivera Sodium [Moles/Vol] 134 mmol/L Critically low 136-145 Th [facility] Comment on above: Performed By: #### HARI OLSONRO #### [facility] [address] [place] [address] Dr. Hardeep Rivera Urea nitrogen [Mass/Vol] 33.0 mg/dL Critically high 7.0-18.0 [facility] Comment on above: Performed By: #### RANDALL OLSON #### [facility] [address] [place] [address] Dr. Hardeep Rivera Urea nitrogen/Creatinine [Mass ratio] 20.4 mg/mg Normal [facility] Comment on above: Performed By: #### HARI OLSONRO #### [facility] [address] [address] [address] Hardeep Rivera TACROLIMUS/FK-506 BLon 05-07 Tacrolimus (Bld) [Mass/Vol] 3.4 ng/mL Low 5.0-20.0 [facility] Comment on above: Order Comment: Speci men [...] situation. Test performed by chemiluminescent immunoassay using [employer]. Performed By: #### F K506 ####[facility] LABCLIA [id number] [address] OF [facility] Eduardo 05-03-2022 CNPN Telephone ([facility]ARD [facility]) SYLVIA HERRERA ([id number]) 1945 F Date Time Provider Department 05/03/22 SHO CROWLEY [facility] During your visit today, we recorded the following information about you: Sho Crowley APRN.COUNTY ADVISER 05/03/2022 2:58 PM Signed received phone call from [facility] Cardiology group requesting patient's Tacrolimus levels from 04/24. Faxed results to [phone]. Allergies As of Date: 05/03/2022 Noted Allergy [...] mg by mouth three times daily. - tkpzox-xcnuiwvk-wwxvb se (CREON) 24,000-76,000 -120,000 unit cpDR Take [...] Status:Closed by SHO CROWLEY on 05/03/22 Normal [facility] BOX TEST SENT OUTon 04-24-20 SENT TO REF LAB 04/24/2022 Normal [facility] Comment on above: Performed By: #### RANDALL OLSON #### [facility] [address] [place] [address] Dr. [facility] NIK Telephone ([facility]) SYLVIA HERRERA ([id number]) 1945 F Date Time Provider Department 04/24/22 LOIDA MATHIAS [facility] [facility] During your visit today, we recorded the following information about you: Linden Weems 04/24/2022 1:31 PM Signed Patient left message that she had labs drawn today. Linden Weems Administrative Mailroom Messenger Post Heart Transplant J3-4 Loida Mathias APRN.ODETTE 04/26/2022 11:25 AM Signed Received FK level 4.5, drawn 04/24 My chart message sent to patient. Advised to remain on current dose and keep our office updated re: her plans for post transplant follow up. Loida Mathias APRN.COUNTY ADVISER April 26, 2022 11:24 AM Component Latest [...] mg by mouth three times daily. - czfffs-zbonfoue-lmjwb se (CREON) 24,000-76,000 -120,000 unit cpDR Take [...] 04/24/22 Normal [facility] TACROLIMUS/FK-506 BLon 04-24 Tacrolimus (Bld) [Mass/Vol] 4.5 ng/mL Low 5.0-20.0 [facility] Comment on above: Order Comment: Speci men [...] Test performed by chemiluminescent immunoassay using Sutton InMyShow. Performed By: #### F K506 ####[facility] [id number] [place] [address] [place] FK506 (TACROLIMUS) WHOLE BLO ODon 04-11-2022 Tacrolimus (FK506), Blood 7.3 ng/mL Normal 2.0-20.0 [facility] Comment on above: Result Comment: Trou gh (immediately following transplant) 15.0 . Trough (steady state, 2 weeks or more after transplant): 3.0 - 8.0 . Performed by LC-MS/MS technology. Performed By: #### HARI OLSONRO #### [facility] [address] [place] [address] Dr. Hardeep Rivera BOX TEST SENT OUTon 04-09-20 22 SENT TO REF LAB 04/09/2022 Normal [facility] Comment on above: Performed By: #### Deedee PINON UMICRO #### [facility] [address] [place] [address] Dr. Hardeep Rivera CBC AUTO DIFFon 04-09-2022 BASO # 0.0 103/ul Normal 0.0-0.1 [facility] Comment on above: Performed By: #### Deedee PINON UMICRO #### [facility] [address] [place] [address] Dr. Hardeep Rivera Basophils/100 WBC (Bld) 0.1 % Critically low 0.2-2.0 [facility] Comment on above: Performed By: #### Deedee PINON UMICRO #### [facility] [address] [place] [address] Dr. Hardeep Rivera EO # 0.1 103/ul Normal 0.0-0.7 [facility] Comment on above: Performed By: #### Deedee PINON UMICRO #### [facility] [address] [place] [address] Dr. Hardeep Rivera Eosinophils/100 WBC (Bld) 1.2 % Normal 0.9-7.0 [facility] Comment on above: Performed By: #### Deedee PINON UMICRO #### [facility] [address] [place] [address] Dr. Hardeep Rivera Erythrocyte distribution width (RBC) [Ratio] 12.6 % Normal 11.0-15.0 [facility] Comment on above: Performed By: #### Deedee PINON UMICRO #### [facility] [address] [place] [address] Dr. Hardeep Rivera Hematocrit (Bld) [Volume fraction] 44.1 % Normal 36.0-48.0 [facility] Comment on above: Performed By: #### HARI OLSONRO #### [facility] [address] [place] [address] Dr. Hardeep Rivera Hemoglobin (Bld) [Mass/Vol] 14.1 g/dL Normal 12.0-16.0 [facility] Comment on above: Performed By: #### HARI OLSONRO #### [facility] [address] [place] [address] Dr. Hardeep Rivera IG # 0.02 10e3/ul Normal 0.00-0.03 [facility] Comment on above: Performed By: #### HARI OLSONRO #### [facility] [address] [place] [address] Dr. Hardeep Rivera IG % 0.3 % Normal 0.0-0.5 [facility] Comment on above: Performed By: #### AKSHAT OLSONICRO #### [facility] [address] [place] [address] Dr. Hardeep Rivera LYMPH # 0.7 103/ul Critically low 1.2-3.8 [facility] Comment on above: Performed By: #### AKSHAT OLSONICRO #### [facility] [address] [place] [address] Dr. Hardeep Rivera Lymphocytes/100 WBC (Bld) 10.8 % Critically low 20.5-60.0 [facility] Comment on above: Performed By: #### Deedee PNION UMICRO #### [facility] [address] [place] [address] Dr. Hardeep Rivera MANUAL DIFF REQ NO Normal [facility] Comment on above: Performed By: #### AKSHAT OLSONICRO #### [facility] [address] [place] [address] Dr. Hardeep Rivera MCH (RBC) [Entitic mass] 29.3 pg Normal 26.7-34.0 [facility] Comment on above: Performed By: #### Deedee PINON UMICRO #### [facility] [address] [place] [address] Dr. Hardeep Rivera MCHC (RBC) [Mass/Vol] 32.0 g/dL Normal 29.9-35.2 [facility] Comment on above: Performed By: #### E RUR, UMICRO #### [facility] [address] [place] [address] Dr. Hardeep Rivera MCV (RBC) [Entitic vol] 91.7 fL Normal 81.0-99.0 [facility] Comment on above: Performed By: #### E RUR, UMICRO #### [facility] [address] [place] [address] Dr. Hardeep Rivera MONO # 0.7 103/ul Normal 0.3-0.8 [facility] Comment on above: Performed By: #### E KATHRIN, UMICRO #### [facility] [address] [place] [address] Dr. Hardeep Rivera Monocytes/100 WBC (Bld) 10.8 % Normal 1.7-12.0 [facility] Comment on above: Performed By: #### E KATHRIN UMICRO #### [facility] [address] [place] [address] Dr. Hardeep Rivera NEUT # 5.2 103/ul Normal 1.4-6.5 [facility] Comment on above: Performed By: #### E KATHRIN, UMICRO #### [facility] [address] [place] [address] Dr. Hardeep Rivera Neutrophils/100 WBC (Bld) 76.8 % Critically high 43.0-75.0 [facility] Comment on above: Performed By: #### E RUR, UMICRO #### [facility] [address] [place] [address] Dr. Hardeep Rivera Platelet mean volume (Bld) [Entitic vol] 9.8 fL Normal 9.5-13.5 [facility] Comment on above: Performed By: #### E RUR, UMICRO #### [facility] [address] [place] [address] Dr. Hardeep Rivera PLT 200 103/ul Normal 150-450 [facility] Comment on above: Performed By: #### RANDALL OLSON #### [facility] [address] [address] [address] Hardeep Rivera RBC 4.81 106/ul Normal 4.20-5.40 [facility] Comment on above: Performed By: #### HARI OLSONRO #### [facility] [address] [place] [address] Dr. Hardeep Rivera WBC 6.7 103/ul Normal 4.0-11.0 [facility] Comment on above: Performed By: #### HARI OLSONRO #### [facility] [address] [place] [address] Dr. Hardeep Rivera PROF CHEM 8 (BAS METB)on Anion gap [Moles/Vol] 9.1 mmol/L Normal [facility] Comment on above: Performed By: #### HARI OLSONRO #### [facility] [address] [place] [address] Dr. Hardeep Rivera Calcium [Mass/Vol] 8.3 mg/dL Critically low 8.5-10.1 [facility] Comment on above: Performed By: #### HARI OLSONRO #### [facility] [address] [place] [address] Dr. Hardeep Rivera Chloride [Moles/Vol] 100 mmol/L Normal 98-107 [facility] Comment on above: Performed By: #### HARI OLSONRO #### [facility] [address] [place] [address] Dr. Hardeep Rivera CO2 [Moles/Vol] 28.1 mmol/L Normal 21.0-32.0 [facility] Comment on above: Performed By: #### HARI OLSONRO #### [facility] [address] [place] [address] Dr. Hardeep Rivera Creatinine [Mass/Vol] 1.54 mg/dL Critically high 0.55-1.02 [facility] Comment on above: Performed By: #### AKSHAT OLSONICRO #### [facility] [address] [place] [address] Dr. Hardeep Rivera EGFR-AF SOUTH AFRICAN 40 mL/min/1.73m2 Critically low >=60 [facility] Comment on above: Performed By: #### Deedee PINON UMICRO #### [facility] [address] [place] [address] Dr. Hardeep Rivera EGFR-NON AF SOUTH AFRICAN 33 mL/min/1.73m2 Critically low >=60 [facility] Comment on above: Performed By: #### Deedee PINON UMICRO #### [facility] [address] [place] [address] Dr. Hardeep Rivera Glucose [Mass/Vol] 122 mg/dL Critically high 74-106 [facility] Comment on above: Performed By: #### Deedee PINON UMICRO #### [facility] [address] [place] [address] Dr. Hardeep Rivera Potassium [Moles/Vol] 4.2 mmol/L Normal 3.5-5.1 [facility] Comment on above: Performed By: #### Deedee PINON UMICRO #### [facility] [address] [place] [address] Dr. Hardeep Rivera Sodium [Moles/Vol] 133 mmol/L Critically low 136-145 [facility] Comment on above: Performed By: #### Deedee PINON UMICRO #### [facility] [address] [place] [address] Dr. Hardeep Rivera Urea nitrogen [Mass/Vol] 28.0 mg/dL Critically high 7.0-18.0 [facility] Comment on above: Performed By: #### Deedee PINON UMICRO #### [facility] [address] [place] [address] Dr. Hardeep Rivera Urea nitrogen/Creatinine [Mass ratio] 18.2 mg/mg Normal [facility] Comment on above: Performed By: #### Deedee PINON UMICRO #### [facility] [address] [place] [address] Dr. Hardeep Rivera TACROLIMUS/FK-506 BLon 04-09 Tacrolimus (Bld) [Mass/Vol] 9.9 ng/mL Normal 5.0-20.0 [facility] Comment on above: Order Comment: Speci men [...] situation. Test performed by chemiluminescent immunoassay using FlowBelow Aero. Performed By: #### F K506 ####[facility] [id number] [address] Eduardo 10-10-2021 CNPN Telephone ([facility]) SYLVIA HERRERA ([id number]) 1945 F Date Time Provider Department 10/10/21 LOIDA MATHIAS [facility] During your visit today, we recorded the following information about you: Linden Weems 10/10/2021 11:57 AM Signed Patient had labs drawn today Linden Weems Administrative Mailroom Messenger Linden Weems 10/11/2021 10:57 AM Signed Labs uploaded to scanned docs. Linden Weems Administrative Mailroom Messenger Loida Mathias APRN.COUNTY ADVISER 10/12/2021 12:28 PM Signed Received outside labs [...] transplant. No Dr Caldera: Rfl: TACROLIMUS/FK-506 BL [[id number]] Order #: [id number] FUTURE Prescriptions as of 10/12/2021 - tacrolimus [...] mg by mouth three times daily. - zbwpxc-dpyaypnd-cobzi se (CREON) 24,000-76,000 -120,000 unit cpDR Take [...] included)... Normal [facility] Tacrolimus / [id number] Tacrolimus / FK506 10.1 ng/mL Normal 5.0-20.0 [place] Comment on above: Result Comment: Thes e [...] Test performed by chemiluminescent immunoassay using Sutton Spot Checker. Performed By: #### F K506 ####[facility] [id number] [place], [place] [id number] Eduardo 09-13-2021 NIK Telephone (CARD MARICEL DEXTER) SYLVIA HERRERA ([id number]) 1945 F Date Time Provider Department 09/13/21 ARELIS NEWSOME CARD [facility] During your visit today, we recorded the following information about you: Linden Weems 09/13/2021 2:52 PM Signed S/w pt, due to transportation and financial constraints she is unable to come to [place] for appointments. Patient is working with her trimming caser to establish care with a local tennis player (had previously been followed by one in [place]).Dr Rice has agreed and plan going forward will be to do a phone visit with pt on 10/03 and she will follow up in the interim with her local No Experience. Sending pt mailers and lab order, she will get those done as soon as she can. Linden Weems Administrative Mailroom Messenger Allergies As of Date: 09/13/2021 Noted Allergy [...] mg by mouth three times daily. - ulftrw-frmkltba-veovj se (CREON) 24,000-76,000 -120,000 unit cpDR Take [...] Encounter Status:Closed by LINDEN WEEMS on 09/13/21 [facility] OBSOLETEon 09-12-2021 OBSOLETE Refill (CARD [facility] ) SYLVIA HERRERA ([id number]) 1945 F Date Time Provider Department 09/12/21 [facility] During your visit today, we recorded [...] mg by mouth three times daily. - yuzfgp-wcokdbrt-vwvam se (CREON) 24,000-76,000 -120,000 unit cpDR Take [...] 09/12/21 Normal [facility] Vital Signs Date Time Vital Sign Value Performing Clinician Dami charles 04-08-2023 06:45-0400 Diastolic blood pressure 76 mm[Hg] NUVETA [facility] 04-08-2023 06:45-0400 Heart rate 59 /min NUVETA [facility] 04-08-2023 06:45-0400 Hourly Rounding NUVETA [facility] 04-08-2023 06:45-0400 Mean blood pressure 106 mm[Hg] Richard Roby [facility] 04-08-2023 06:45-0400 Respiratory rate 18 /min Richard Roby [facility] 04-08-2023 06:45-0400 SaO2% (BldA) [Mass fraction] 96 % Richard Roby [facility] 04-08-2023 06:45-0400 Systolic blood pressure 167 mm[Hg] Richard Roby [facility] 04-08-2023 05:30-0400 Diastolic blood pressure 88 mm[Hg] Richard Roby [facility] 04-08-2023 05:30-0400 Heart rate 52 /min Richard Roby [facility] 04-08-2023 05:30-0400 Hourly Rounding Richard Roby [facility] 04-08-2023 05:30-0400 Mean blood pressure 114 mm[Hg] Richard Roby [facility] 04-08-2023 05:30-0400 Respiratory rate 18 /min Richard Roby [facility] 04-08-2023 05:30-0400 SaO2% (BldA) [Mass fraction] 95 % Richard Roby [facility] 04-08-2023 05:30-0400 Systolic blood pressure 167 mm[Hg] Richard Roby [facility] 04-08-2023 04:39-0400 Diastolic blood pressure 90 mm[Hg] Richard Roby [facility] 04-08-2023 04:39-0400 Heart rate 56 /min Richard Roby [facility] 04-08-2023 04:39-0400 Hourly Rounding Richard Ca [facility] 04-08-2023 04:39-0400 Mean blood pressure 112 mm[Hg] Richard Roby [facility] 04-08-2023 04:39-0400 Respiratory rate 17 /min Richard Roby [facility] 04-08-2023 04:39-0400 SaO2% (BldA) [Mass fraction] 94 % Richard Roby [facility] 04-08-2023 04:39-0400 Systolic blood pressure 155 mm[Hg] Richard Roby [facility] 04-07-2023 21:48-0400 Respiratory rate 18 /min Richard Ca [facility] 04-07-2023 21:19-0400 Body temperature 98.06 [degF] Richard Ca [facility] 04-07-2023 21:19-0400 Heart rate 65 /min Richard Roby [facility] 04-07-2023 21:19-0400 Respiratory rate 19 /min Richard Collinsner [facility] Encounters Encounter Date Encounter Type Care Provider Facility Start: 02-03-2024 End: 02-03-2024 ambulatory [facility] Start: 11-12-2023 End: 11-12-2023 ambulatory [facility] Start: 08-07-2023 End: 08-07-2023 ambulatory [facility] Start: 04-07-2023 End: 04-08-2023 Emergency department patient visit Richard SLaura Ca Facility:[facility] Start: 04-07-2023 End: 04-08-2023 Emergency department patient visit Richard Ca [facility] Start: 03-05-2023 End: 03-05-2023 ambulatory SCOT [...] ty:[facility] Start: 07-17-2022 End: 07-18-[address] [facility] Facility:[facility] Start: 07-16-2022 End: 07-17-[address] [facility] Facility:[facility] Start: 07-16-2022 End: 07-16-2022 Patient encounter procedure Eddie JAMA [facility] Start: 07-12-2022 End: 07-13-2022 ambulatory Eddie JAMA Facility:[facility] Start: 07-05-2022 Telephone encounter Sho Crowley APRN.COUNTY ADVISER Work Phone: Cardiology Comment on above: Heart Transplant Fol low Up; Lab Meeting Start: 07-03-2022 Telephone encounter Soy Mccann RN Ca rdiology Comment on above: Heart Transplant Fol low Up (labs) Start: 07-03-2022 End: 07-04-[address] TAO ROONEY . Facility:[facility] Start: 05-28-2022 End: 05-29-[address] TAO ROONEY . Facility:[facility] Start: 05-23-2022 [facility] Start: 05-08-2022 Telephone encounter Loida Mathias APRN.COUNTY ADVISER Work Phone: Cardiology Comment on above: Heart Transplant Fol low Up (labs) Start: 05-07-2022 End: 05-08-[address] TAO ROONEY . Facility:[facility] Start: 04-24-2022 Telephone encounter Loida Mathias APRN.COUNTY ADVISER Work Phone: Cardiology Comment on above: Heart Transplant Fol low Up Start: 04-24-2022 End: 04-25-[address] TAO ROONEY . Facility:[facility] Start: 04-20-[address] TAO ROONEY . Facili ty:[facility] Start: 04-11-2022 ambulatory Loida fontaine APRN.COUNTY ADVISER Work Phone: [facility] Start: 04-11-2022 Follow-up encounter Loida Mathias APRN.COUNTY ADVISER Work Phone: Cardiology Comment on above: Heart Transplant Fol low Up (Labs) Start: 04-09-2022 End: 04-10-[address] TAO ROONEY . Facility:[facility] Start: 04-06-2022 Orders Only Loida fontaine APRN.COUNTY ADVISER Work Phone: Cardiology Comment on above: Heart replaced by tr ansplant (HCC) (Primary Dx) Start: 04-04-2022 Refill Loida fontaine APRN.COUNTY ADVISER Work Phone: Cardiology Comment on above: Rx Refills Start: 10-03-2021 End: 10-03-2021 ambulatory NICOLETTE RICE [facility] Procedures Date Procedure Procedure Detail Performing Clinician Start: 08-10-2013 H/O: heart recipient Heart transplan arianna Loida Mathias PATIENT SERVICE REP.COUNTY ADVISER Work Phone: H/O: heart recipient Heart transplanted ( HCC) Loida Mathias PATIENT SERVICE REP.COUNTY ADVISER Work Phone: H/O: heart recipient Heart repla nitish by transplant ([facility]) Loida Bishopo PATIENT SERVICE REP.COUNTY ADVISER Work Phone: H/O: heart recipient Heart transplanted ( HCC) Loida Bishopo PATIENT SERVICE REP.COUNTY ADVISER Work Phone: H/O: heart recipient Heart transplanted ( HCC) Loida Gustafsonrino PATIENT SERVICE REP.COUNTY ADVISER Work Phone: H/O: heart recipient Heart transplanted ( HCC) Sho Crowley PATIENT SERVICE REP.COUNTY ADVISER Work Phone: H/O: heart recipient Hx of heart transplant( Confirmed ) Morgan RITO Plan of Treatment Date Care Activity Detail Author Start: 08-02-2022 Influenza vaccination INFLUENZA (#1) [facility] Start: 07-19-2022 End: 09-18-2022 Tacrolimus [Mass/volume] in Blood TACROLIMUS/FK-506 BL Lab Routine Heart transplanted (HCC) Expected: 07/19/2022 (Approximate), Expires: 09/18/2022 [facility] Work Phone: Comment on above: Expected: 07/19/2022 (Approximate), Expires: 09/18/2022 Start: 05-21-2022 End: 07-21-2022 TACROLIMUS/FK-506 BL TACROLIMUS/FK-506 BL Lab Routine Heart transplanted ([facility]) Expected: 05/21/2022, Expires: 07/21/2022 [facility] Work Phone: Comment on above: Expected: 05/21/2022 , Expires: 07/21/2022 Start: 04-23-2022 End: 06-23-2022 TACROLIMUS/FK-506 BL TACROLIMUS/FK-506 BL Lab Routine Heart transplanted (HCC) Expected: 04/23/2022, Expires: 06/23/2022 [facility] Work Phone: Comment on above: Expected: 04/23/2022 , Expires: 06/23/2022 Start: 04-09-2022 End: 06-09-2022 CBC W Auto Differential panel - Blood CBC + DIFF Lab Routine Heart replaced by transplant ([facility]) Expected: 04/09/2022, Expires: 06/09/2022 [facility] Work Phone: Comment on above: Expected: 04/09/2022 , Expires: 06/09/2022 Start: 04-09-2022 End: 06-09-2022 Comprehensive metabolic 2000 panel - Serum or Plasma COMP METABOLIC PANEL Lab Routine Heart replaced by transplant ([facility]) Expected: 04/09/2022, Expires: 06/09/2022 [facility] Work Phone: Comment on above: Expected: 04/09/2022 , Expires: 06/09/2022 Start: 04-09-2022 End: 04-06-2023 HEART/LUNG REC POST TX DSA HEART/LUNG REC POST TX DSA ALLOGEN Routine Heart replaced by transplant ([facility]) Expected: 04/09/2022, Expires: 04/06/2023 [facility] Work Phone: Comment on above: Expected: 04/09/2022 , Expires: 04/06/2023 Start: 04-09-2022 End: 06-09-2022 LIPID PANEL BASIC LIPID PANEL BASIC Lab Routine Heart replaced by transplant ([facility]) Expected: 04/09/2022, Expires: 06/09/2022 [facility] Work Phone: Comment on above: Expected: 04/09/2022 , Expires: 06/09/2022 Start: 04-09-2022 End: 06-09-2022 Magnesium [Mass/volume] in Serum or Plasma MAGNESIUM BLD Lab Routine Heart replaced by transplant ([facility]) Expected: 04/09/2022, Expires: 06/09/2022 [facility] Work Phone: Comment on above: Expected: 04/09/2022 , Expires: 06/09/2022 Start: 04-09-2022 End: 06-09-2022 TACROLIMUS/FK-506 BL TACROLIMUS/FK-506 BL Lab Routine Heart replaced by transplant ([facility]) Expected: 04/09/2022, Expires: 06/09/2022 [facility] Work Phone: Comment on above: Expected: 04/09/2022 , Expires: 06/09/2022 Start: 04-09-2022 End: 06-09-2022 URINALYSIS, DIPSTICK ONLY URINALYSIS, DIPSTICK ONLY Lab Routine Heart replaced by transplant ([facility]) Expected: 04/09/2022, Expires: 06/09/2022 [facility] Work Phone: Comment on above: Expected: 04/09/2022 , Expires: 06/09/2022 Start: 12-02-2021 ADVANCE DIRECTIVE DISCUSSION ADVANCE DIRECTIVE DISCUSSION [facility] Start: 09-26-2021 COVID-19 VACCINE (3 - Pfizer risk 4-dose series) COVID-19 VACCINE (3 - Pfizer risk 4-dose series) [facility] Start: 09-26-2021 COVID-19 VACCINE (3 - Pfizer risk series) COVID-19 VACCINE (3 - Pfizer risk series) [facility] Start: 03-04-2020 Hepatitis B surface antibody level LDL CHOLESTEROL [facility] Start: 06-14-2015 Hemoglobin A1c/Hemoglobin.total in Blood HBA1C [facility] Start: 11-01-2013 PNEUMOCOCCAL: 65+ (3 - PCV) PNEUMOCOCCAL: 65+ (3 - PCV) [facility] Start: 2009 ADULT PREVNAR ADULT PREVNAR [facility] Start: 1994 SHINGRIX VACCINE (1 of 2) SHINGRIX VACCINE (1 of 2) [facility] Start: 1963 SHINGRIX VACCINE (1 of 2) SHINGRIX VACCINE (1 of 2) [facility] Start: 1963 Urine microalbumin profile DTAP,TDAP,TD (1 - Tdap) [facility] Start: 1962 ANNUAL PCP TEAM CHILD ADVOCATE BRENNAN DISEASE VISIT ANNUAL PCP TEAM CHRONIC DISEASE VISIT [facility] Start: 1962 BP CONTROLLED (<130/80) BP CONTROLLE D (<130/80) [facility] Start: 1954 3 comp foot exam completed DIABETIC FOOT EXAM [facility] Start: 1954 Hepatitis B screening URINE ALBUMIN:CREATININE RATIO [facility] Start: 1954 Hepatitis C antibody , confirmatory test DILATED RETINAL EXAM [facility] Start: 1950 PNEUMOCOCCAL: 65+ (1 - PCV) PNEUMOCOCCAL: 65+ (1 - PCV) [facility] [place] [facility] Immunizations Immunization Date Immunization Notes Care Provider Valente mendes 06-05-2022 SARS-CoV-2 mRNA (wnmdjqvtbdc-eyvb-jwobd se) vaccine Morgan SALAM [facility] 08-29-2021 SARS-CoV-2 (COVID-19 ) mRNA BNT-162b2 vax Morgan SALAM [facility] 08-02-2021 SARS-CoV-2 (COVID-19 ) mRNA BNT-162b2 vax Morgan SALAM [facility] 07-05-2021 influenza virus vaccine, unspecified formulation Morgan SALAM [facility] 09-29-2020 influenza, unspecifi ed formulation Morgan SALAM [facility] 07-24-2020 influenza virus vaccine, unspecified formulation Morgan SALAM [facility] 09-02-2017 influenza virus vaccine, unspecified formulation Morgan SALAM [facility] 08-07-2017 pneumococcal conjuga te vaccine, 13 valent Morgan SALAM [facility] 08-14-2016 influenza virus vaccine, unspecified formulation Morgan SALAM [facility] 09-29-2015 pneumococcal conjuga te vaccine, 13 valent Morgan SALAM [facility] 08-04-2015 influenza virus vaccine, unspecified formulation Morgan SALAM [facility] 09-15-2014 influenza virus vaccine, whole virus Loida Iammarino PATIENT SERVICE REP.COUNTY ADVISER Work Phone: [facility] 09-15-2014 influenza, whole Morgan SALAM [facility] 11-01-2012 pneumococcal polysaccharide vaccine, 23 valent Loida Iammarino PATIENT SERVICE REP.COUNTY ADVISER Work Phone: [facility] 12-28-2009 novel [id number]-[id number], all formulations Loida Iammarino PATIENT SERVICE REP.COUNTY ADVISER Work Phone: [facility] Work Phone: 08-19-2009 influenza virus vaccine, unspecified formulation Loida Iammarino PATIENT SERVICE REP.COUNTY ADVISER Work Phone: [facility] 09-01-2006 influenza virus vaccine, unspecified formulation Loida Iammarino PATIENT SERVICE REP.COUNTY ADVISER Work Phone: [facility] Work Phone: 09-01-2006 pneumococcal polysaccharide vaccine, 23 valent Loida Iammarino PATIENT SERVICE REP.COUNTY ADVISER Work Phone: [facility] Work Phone: NEGATED: Highlighted row has not occurred!07-12-2022 influenza virus vaccine, unspecified formulation Morgan SALAM [facility] Payers Date Payer Category Payer Medicare UHC MEDICARE UHC DUAL COMPLETE HMO SNP [id number] 2022-[facility] [phone] [address] [place] [address] Medicare [id number] 2022 Medicare UHC MEDICARE UHC DUAL COMPLETE HMO SNP [id number] 2022-Present [phone] [address] [place] [address] Medicare [id number] 2020 Unknown [id number] 1959 Medicaid [id number] 1959 Medicare [id number] 1959 Self-pay [id number] 1959 Unknown [id number] 1944 Unknown [id number] 2.16.840.1.696671.3.579.2.593 1944 Unknown [id number] 2.16.840.1.891746.3.579.2.593 1944 Unknown [id number] 2.16.840.1.832164.3.579.2.593 1944 Unknown [id number] 2.16.840.1.684052.3.579.2.593 1944 Unknown [id number] 2.16.840.1.226168.3.579.2.593 1944 Unknown [id number] 2.16.840.1.276341.3.579.2.593 1944 Unknown [id number] 2.16.840.1.613770.3.579.2.593 1944 Unknown [id number] 2.16.840.1.425568.3.579.2.593 1944 Unknown [id number] 2.16.840.1.521098.3.579.2.593 1944 Unknown [id number] 2.16.840.1.142905.3.579.2.593 1944 Unknown [id number] 2.16.840.1.383933.3.579.2.593 1944 Unknown [id number] 2.16.840.1.494220.3.579.2.593 1944 Unknown [id number] 2.16.840.1.017044.3.579.2.593 1944 Unknown [id number] 2.16.840.1.713119.3.579.2.593 1944 Unknown [id number] 2.16.840.1.107084.3.579.2.593 1944 Unknown [id number] 2.16.840.1.289998.3.579.2.593 1944 Unknown [id number] 2.16.840.1.720791.3.579.2.593 1944 Unknown [id number] 2.16.840.1.896248.3.579.2.593 1944 Unknown [id number] 2.16.840.1.780964.3.579.2.727 1944 Unknown [id number] 2.16.840.1.334868.3.579.2.727 1944 Unknown [id number] 2.16.840.1.515660.3.579.2.727 1944 Unknown [id number] 2.16.840.1.278413.3.579.2.727 1944 Unknown [id number] 2.16.840.1.966302.3.579.2.727 Unknown [id number] 2.16.840.1.796392.3.579.2.593 Social History Date Type Detail Facility Start: 05-13-2019 Tobacco smoking stat [email or web address]IS Ex-smoker [facility] Work Phone: History of tobacco use Cigarette Smoker [facility] Work Phone: Start: 09-07-2019 Alcohol intake Current non-dr meat stringer of alcohol (finding) [facility] Start: 1945 Sex Assigned At Not on file [facility] Start: 07-12-2022 Never smoked t obacco (finding) [facility] Never [facility] Female [facility] History of tobacco use Current smoker [facility] Start: 05-13-2019 Cigarettes smoked current (pack per day) - Reported 0.3 [facility] Start: 05-13-2019 Tobacco use and exposure Smokeless tobacco non-user [facility] Functional Status Date Assessment Result Facility 04-07-2023 Functional Status N/A [facility] Clinical Notes 11-14-2017 to 02-03-2024 Note Date & Type Note Facility 02-03-2024 Note [facility] Subjective Sylvia Herrera is a 78 y.o. year old female patient being seen for follow up [facility]. She was seen as inpatient consult [...] Alcohol use: Not Currently Drug use: Never [facility] Visit of 10/30/2021: Sylvia is seen as [...] in 2007. She is followed by the [facility] cardiology service. She has had no history [...] the prior echocardiographi (more content not included)... [facility] 11-12-2023 Note [place] [facility] Subjective Sylvia Herrera is [...] in 2007. She is followed by the [facility] cardiology service. She has had no history [...] Stress Testing (1 (more content not included)... [facility] 10-28-2023 Note [facility] 08-07-2023 Note [place] [facility] Subjective Sylvia Herrera is [...] in 2007. She is followed by the [facility] cardiology service. She has had no history [...] scan. [address] (more content not included)... [facility] 07-23-2023 Note ta [facility] 04-08-2023 Hospital Discharge instructions Patient Education [...] ?Adrenal gland problems. ?Metabolic conditions, such as Erie's disease or syndrome of inappropriate antidiuresis (SIAD). [...] improvement. Follow these instructions at home: Take aslh-kig-slwehuj and prescription medicines only as told by [...] provider. Document Revised: 05/29/2022 Document Reviewed: 05/29/2022 [employer] Patient Education 2022 [employer]. 04/08/2023 08:56:02 Nonspecific Chest Pain, Adult Nonspecific [...] Follow these instructions at home: Medicines Take cgkg-ymu-xlosbpm and prescription medicines only as told by [...] provider. Document Revised: 02/01/2022 Document Reviewed: 02/01/2022 [employer] Patient Education 2022 [employer] Follow Up Care 04/07/2023 21:19:10 With:SCOT ROGERS Address: [address], [place] [address] [phone] Business (1) When:Within 3 Day(s) [facility] 04-07-2023 Evaluation + Plan note Extrac [...] Troponin 9 Hr. XR Chest Single View [facility]09-01-2022 Miscellaneous Notes* Telephone Encounter - Linden Faustina - 08/02/2022 1:41 PM EDT Patient had labs drawn 08/02/22, uploaded to scanned docs. documented in this encounterOhio[facility]22 Miscellaneous Notes* Telephone Encounter - Sho Crowley [...] another team. Sho Crowley APRN, ODETTE Pager: [phone] July 05, 2022 10:42 AM Post Heart Transplant Nurse Practitioner documented in this encounterOhio[facility]08-02-2022 Miscellaneous Notes* Telephone Encounter - Linden Weems - 07/03/2022 12:59 PM EDT Patient had labs drawn 07/03/22, uploaded to scanned docs. documented in this encounterOhiohealth [facility]06-07-2022 Miscellaneous Notes* Addendum Note - Loida Mathias [...] uploaded to scanned docs. Linden Weems Administrative Mailroom Messenger documented in this encounterOhiohealth [facility]05-24-2022 Miscellaneous Notes* Telephone Encounter - Linden Weems - 04/24/2022 1:31 PM EDT Patient left message that she had labs drawn today. Linden Weems Administrative Mailroom Messenger Post Heart Transplant J3-4 documented in this encounterOhiohealth [facility]heastern [facility] Center05-11-2022 NoteHNO ID: [id number] Author: Loida Iammarino, PATIENT SERVICE REP.COUNTY ADVISER Service: ? Author Type: Nurse Practitioner Type: [...] reports she can no longer travel to [place]. She does not have a ride, she has no family or friends to lean on. She has made an appt with a local No Experience. She will ask him if there are any transplant doctors or centers near her and potentially need to transfer her care. She will keep us updated. Loida Mathias APRN.COUNTY ADVISER April 12, 2022 2:25 [facility]05-11-2022 History of Present illness Narrative* Loida Mathias APRN.COUNTY ADVISER - 04/11/2022 3:42 PM EDT Received outside [...] reports she can no longer travel to [place]. [place] not have a ride, she has no family or friends to lean on. She has made an appt with a local No Experience. She will ask him if there are any transplant doctors or centers near her and potentiallyneed to transfer her care. She will keep us updated. Loida Mathias APRN.CNP April 12, 2022 2:25 PM documented in this encounterOhiohealth [facility] Center11-08-2021 NoteHNO ID: [id number] Author: Loida Mathias APRN.CNP Service: ? Author [...] Loida Mathias APRN.CNP October 09, 2021 4:10 [facility]11-02-2021 NoteHNO ID: [id number] Author: Nicolette Rice MD Service: ? Author Type: Physician Type: Progress Notes Filed: 10/03/2021 4:12 PM Note Text: Heart, Vascular AND Thoracic [place] Department of Cardiovascular Medicine TELEPHONE VISIT PROGRESS [...] in ~6 months. Will see a local tennis player at the end of the month. Data Reviewed: No new labs Assessment: She is doing well clinically and her BP is controlled. ? Plan: 1. She was instructed to continue the current medical program. 2. RTC per post-transplant protocol. Total Time Spent: 21-30 minutes Nicolette Rice [facility]12-14-2017 History of Past illness Narrative* Problem Noted [...] of this encounter (statuses as of 04/05/2022) [facility] of Past illness Narrative* Problem Noted [...] of this encounter (statuses as of 04/06/2022) [facility] History of Past illness Narrative* Problem Noted [...] of this encounter (statuses as of 04/12/2022) [facility] History of Past illness Narrative* Problem Noted [...] of this encounter (statuses as of 04/24/2022) [facility] of Past illness Narrative* Problem Noted [...] of this encounter (statuses as of 05/08/2022) [facility] of Past illness Narrative* Problem Noted [...] of this encounter (statuses as of 07/03/2022) [facility] History of Past illness Narrative* Problem Noted [...] of this encounter (statuses as of 07/05/2022) [facility] History of Past illness Narrative* Problem Noted [...] of this encounter (statuses as of 08/02/2022) [facility] History of Past illness Narrative* Problem Noted [...] of this encounter (statuses as of 09/11/2022) [facility] note Future Appointments Appointment Date:08/01/2022 01:50:00 PM Scheduled Provider: Location:[facility] Appointment Type:Surgery FT Diagnostic Tests Pending * CMV Antibody IgM 07/16/22 Future Scheduled Tests Laboratory* Fecal WBC Lactoferrin 07/12/22 * Giardia lamblia, Direct Detection EIA 07/12/22 * O & P Exam, Routine 07/12/22 * Clostridium difficile by PCR 07/12/22 * Enteric Panel by PCR 07/12/22 [facility] transplanted (HCC) Heart replaced by transplant [facility] Diagnosis Heart replaced by transplant (HCC)- Primary Heart replaced by transplant documented in this encounter [facility] note* Diagnosis Heart replaced by transplant (HCC)- Primary Heart replaced by transplant Heart transplanted (HCC) Heart replaced by transplant documented in this encounter [facility] [place] [facility]* Diagnosis Heart transplanted (HCC) Heart replaced by transplant documented in this encounter [facility] note* Diagnosis Heart transplanted (HCC) Heart replaced by transplant documented in this encounter [facility] course Narrative No data available for this section [facility] Dis[facility] instructions No data available for this section [facility] No data available for this section [facility] Advance Directives No Advanced Directives Records FoundDocuments on File Type Date Recorded Patient Head Of History Expl anation Advance Directive(s) 11/14/2017 5:44 AM Advance Directive(s) 01/02/2012 12:00 AM Advance Directive(s) 01/17/2007 12:00 AM Documents on File Type Date Recorded Patient Head Of History Expl anation Advance Directive(s) 01/02/2012 Advance Directive(s) [...] or prosecute any alcohol or drug abuse patient.[facility] CenterIn the event this information is protected by the Federal Confidentiality of Alcohol and Drug Abuse Patient Records regulations: The Federal rules restrict any use of the information to criminally investigate or prosecute any alcohol or drug abuse patient.[facility] CenterIn the event this information is protected by the Federal Confidentiality of Alcohol and Drug Abuse Patient Records regulations: The Federal rules restrict any use of the information to criminally investigate or prosecute any alcohol or drug abuse patient.[facility] CenterIn the event this information is protected by the Federal Confidentiality of Alcohol and Drug Abuse Patient Records regulations: The Federal rules restrict any use of the information to criminally investigate or prosecute any alcohol or drug abuse patient.[facility] CenterIn the event this information is protected by the Federal Confidentiality of Alcohol and Drug Abuse Patient Records regulations: The Federal rules restrict any use of the information to criminally investigate or prosecute any alcohol or drug abuse patient.[facility] CenterIn the event this information is protected by the Federal Confidentiality of Alcohol and Drug Abuse Patient Records regulations: The Federal rules restrict any use of the information to criminally investigate or prosecute any alcohol or drug abuse patient.[facility] CenterIn the event this information is protected by the Federal Confidentiality of Alcohol and Drug Abuse Patient Records regulations: The Federal rules restrict any use of the information to criminally investigate or prosecute any alcohol or drug abuse patient.[facility] CenterIn the event this information is protected by the Federal Confidentiality of Alcohol and Drug Abuse Patient Records regulations: The Federal rules restrict any use of the information to criminally investigate or prosecute any alcohol or drug abuse patient.[facility] CenterIn the event this information is protected by the Federal Confidentiality of Alcohol and Drug Abuse Patient Records regulations: The Federal rules restrict any use of the information to criminally investigate or prosecute any alcohol or drug abuse patient.[facility] Reason for Visit (unrecogniz ed section and content) Reason Comments Rx Refills Reason Comments Heart Transplant Follow Up Labs Reason Comments Heart Transplant Follow Up Reason Comments Heart Transplant Follow Up labs Reason Comments Heart Transplant Follow Up Lab Meeting Reason Comments Refill Request Care Teams (unrecognized sec tion and content) Investments Manager Relationship Specialty Start Date End Date Tao Rooney MD [address] [place] [address] PCP - General Family Practice 05/13/19 Investments Manager Relationship Specialty Start Date End Date Tao Rooney MD [address] [place] [address] PCP - General Family Practice 05/13/19 Investments Manager Relationship Specialty Start Date End Date Tao Rooney MD [address] [place] [address] PCP - General Family Practice 05/13/19 Investments Manager Relationship Specialty Start Date End Date Tao Rooney MD [address] [place] [address] PCP - General Family Practice 05/13/19 Investments Manager Relationship Specialty Start Date End Date Tao Rooney MD [address] [place] [address] PCP - General Family Practice 05/13/19 Investments Manager Relationship Specialty Start Date End Date Tao Rooney MD [address] [place] [address] PCP - General Family Medicine 05/13/19 INFORMATION SOURCE (unrecogn ized section and content) DATE CREATED AUTHOR 09/01/2022 [facility] DATE CREATED AUTHOR AUTHOR'S ORGANIZ ATION 03/09/2023 [facility] DATE CREATED AUTHOR AUTHOR'S ORGANIZ ATION 04/08/2023 [facility] DATE CREATED AUTHOR AUTHOR'S ORGANIZ ATION 04/19/2024 [facility] FOR RECORDS PERTAINING TO PATIENTS WHO [...] BE BASED ON THE PRIMARY CLINICAL RECORDS. [facility] [employer] [facility]. provides no warranty or guarantee of the accuracy or completeness of information in this document.
[2024-06-18] VITALS (11 sets, daily range): BP systolic 146–166; BP diastolic 76–86; PULSE 68–78; TEMP 36.6–36.7; O2SAT 95–99; BMI 21.3
[2024-06-18 00:22] LABS: Bilirubin Urine NEGATIVE (NEGATIVE); Blood Urine NEGATIVE (NEGATIVE); Clarity Urine CLEAR (CLEAR); Color Urine LT. YELLOW (YELLOW); Glucose Urine UA NEGATIVE (NEGATIVE); Ketones Urine NEGATIVE (NEGATIVE); Leukocyte Esterase Urine MODERATE (NEGATIVE); Nitrite Urine NEGATIVE (NEGATIVE); Protein Urine 30 mg/dL (NEG/TRACE); Specific Gravity Urine 1.015 (1.005-1.025); Urobilinogen Urine 0.2 EU/dL (0.2-1.0)
[2024-06-18 00:29] LABS: Urine Microscopic Indicated YES
[2024-06-18 00:33] LABS: Bacteria Urine TRACE #/HPF (NONE SEEN); Cast Seen? NONE SEEN #/LPF (NONE SEEN); Crystals Seen? None Seen #/HPF (None Seen); Mucus Urine NONE SEEN (NONE SEEN); RBC Urine 0-2 #/HPF (0-2); Squamous Epithelial Cell Urine RARE #/LPF (NONE/RARE); Urine Culture Indicated YES
[2024-06-18] MEDS: TACROLIMUS 0.5 MG 1 EACH PO (01:04)
[2024-06-18] MEDS: [UNRECOGNIZED DRUG - OTHER] 1 EACH PO (01:04)
[2024-06-18] MEDS: MYCOPHENOLATE 500MG 1 EACH PO (01:04)
[2024-06-18] MEDS: ACETAMINOPHEN 325 MG TABLET 650 MG PO (01:14)
[2024-06-18] MEDS: PRAMIPEXOLE 0.125 MG TABLET 0.5 MG PO (01:15)
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
[2024-06-18] MEDS: LEVOTHYROXINE SODIUM 112 MCG TABLET PO (05:45)
[2024-06-18 05:52] LABS: Basophils Percent Auto 0.1 % (0.2-2.0); Eosinophils Absolute Auto 0.1 10^3/uL (0.0-0.7); Eosinophils Percent Auto 1.4 % (0.9-7.0); Hematocrit 33.6 % (36.0-48.0); Hemoglobin 10.9 g/dL (12.0-16.0); Immature Granulocytes Abs Auto 0.03 10^3/uL (0.00-0.03); Immature Granulocytes Pct Auto 0.4 % (0.0-0.5); Lymphocytes Percent Auto 14.7 % (20.5-60.0); Mean Corpuscular HGB Conc 32.4 g/dL (29.9-35.2); Mean Corpuscular Hemoglobin 28.7 pg (26.7-34.0); Mean Corpuscular Volume 88.4 fL (81.0-99.0); Mean Platelet Volume 10.2 fL (9.5-13.5); Monocytes Absolute Auto 0.8 10^3/uL (0.3-0.8); Monocytes Percent Auto 11.4 % (1.7-12.0); Platelet Count 178 10^3/uL (150-450); Red Cell Distribution Width 12.5 % (11.0-15.0)
[2024-06-18 06:18] LABS: Cholesterol 83 mg/dL (<=200); HDL Cholesterol 41 mg/dL (40-60); LDL Cholesterol Calculated 27.4 mg/dL; Triglycerides 73 mg/dL (<=150); VLDL CHOLESTEROL 14.6 mg/dL
--- NOTE | 2024-06-18 06:32 | P.HP_ITS ---
HPI H&P: HPI History of Present Illness Chief complaint: fall Narrative: Patient seen and evaluated in the emergency room after 2 falls with syncope. Patient states both times she was just standing. Had not just stood up, had been standing for some time, the She notes she woke up on the floor the last time she hit her head. Evaluation in the emergency room unremarkable from a head injury standpoint. Patient observed overnight. I saw patient up on the medical surgical floor, she looks pretty much back to her normal self, I know this patient from taking care of her in the office, denies chest pain or shortness of breath. Some concern for bradycardia although telemetry overnight did not show any evidence for that. Review of the labs does show she does have a urinary tract infection. Opioid HPI Opioid Management Most Recent Pain and Opioid Data: Last Pain Scale 5 06/18/24 01:27 Last Pain Intensity 2 12/31/23 13:45 Last Pain Assessment 06/18/24 09:00 Last MAR Pain Assessment 06/18/24 01:14 Last ORT Total Score 1 06/18/24 00:23 Last ORT Risk Category Low Risk 06/18/24 00:23 Review of Systems ROS Status of ROS 10 or more systems reviewed and unremark able except as noted in history and below [facility] Medical History (Updated 06/18/24 @ 00:55 by Toña Márquez RN) Depression ?F32.A - Depression, unspecified (ICD-10) Syncope ?R55 - Syncope and collapse (ICD-10) Acute kidney injury ?N17.9 - Acute kidney failure, unspecified (ICD-10) Gastroenteritis ?K52.9 - Noninfective gastroenteritis and colitis, unspecified (ICD-10) Heart transplant recipient ?Z94.1 - Heart transplant status (ICD-10) Heart transplant recipient ?Z94.1 - Heart transplant status (ICD-10) Surgical History (Updated 06/18/24 @ 00:55 by Toña Márquez RN) History of heart transplant ?Z94.1 - Heart transplant status (ICD-10) History of cholecystectomy ?Z90.49 - Acquired absence of other specified parts of digestive tract (ICD- 10) History of ureteroscopy ?Z98.890 - Other specified postprocedural states (ICD-10) Social History (Updated 06/18/24 @ 00:33 by Toña Márquez RN) Within the past year, how often did you have a drink containing alcohol: never Score interpretation: A score less than 3 is consistent with normal alcohol consumption. Smoking status: Never smoker Non-prescribed substance use: denies use Highest level of school completed/degree received: high school graduate Are you now , , , , never or living with a partner: In a typical week, how many times do you talk on the telephone with family, friends, or neighbors: 3 or more times per week How often do you get together with friends or relatives: 3 or more times per week How often do you attend orthodoxy or methodist services: 4 or more times per year Do you belong to any clubs or organizations such as orthodoxy groups unions, [employer] or athletic groups, or school groups: no Total score: 3 Score interpretation: A score of greater than or equal to 2 indicates the lowest level of social isolation. Little interest or pleasure in doing things: several days Feeling down, depressed, or hopeless: several days Feel stressed/tense/nervous/anxious/difficulty sleeping: not at all Life stressors: recent of family or friend Do you think of yourself as: straight/heterosexual Gender Identity: female Meds Home Medications and Allergies Home Medications ?Medication ?Instructions ?Recorded ?Confirmed ?Type aspirin 81 mg tablet,delayed 81 mg PO DAILY 06/06/23 06/17/24 History release [id number] 3 cap PO TID 06/06/23 06/17/24 History 36,000-114,000-180,000 unit capsule,delay rel (Creon) omega-3 fatty acids-fish oil 360 1 cap PO DAILY 06/06/23 06/17/24 History mg-1,200 mg capsule (Fish Oil) pramipexole 0.5 mg tablet 0.5 mg PO DAILY 06/06/23 06/17/24 History simvastatin 20 mg tablet 20 mg PO DAILY 06/06/23 06/17/24 History tacrolimus 0.5 mg capsule, 1 mg PO BID 06/06/23 06/18/24 History immediate-release levothyroxine 112 mcg tablet 112 mcg PO QDAY 06/07/23 06/17/24 History mycophenolate mofetil 250 mg 500 mg PO BID 12/31/23 06/17/24 History capsule carvedilol 12.5 mg tablet 12.5 mg PO BID #60 tabs 01/01/24 06/17/24 Rx magnesium oxide 400 mg (241.3 mg 400 mg PO BID #60 tabs 01/01/24 06/17/24 Rx magnesium) tablet citalopram 20 mg tablet 20 mg PO DAILY 06/17/24 06/17/24 History cefdinir 300 mg capsule 600 mg (2 x 300 mg) PO DAILY #20 06/18/24 Rx caps [id number]-byvvemr See Rx Instructions PO TID 06/18/24 06/18/24 History 36,000-114,000-180,000 unit capsule,delay rel (Creon) Allergies Allergy/AdvReac Type Severity Reaction Status Date / Time promethazine [From Phenergan] AdvReac Severe Confusion Verified 06/17/24 21:28 ciprofloxacin [From Cipro] AdvReac Mild HIVES Verified 06/17/24 21:28 Exam Constitutional Vital Signs, click to edit/add: Last Vital Signs Temp 97.8 F 06/18/24 04:12 Pulse 68 06/18/24 05:57 Resp 18 06/18/24 04:12 BP 146/76 H 06/18/24 04:12 Pulse Ox 95 06/18/24 04:31 O2 Del Method Room Air 06/18/24 04:31 Documenting provider has reviewed patient's vital signs: yes Common normals: no apparent distress Chest Common normals: inspection of chest normal and palpation of chest normal Respiratory Common normals: normal respiratory effort and no retractions Cardio Common normals: regular rate GI Common normals: Normal to inspection, nondistended, normoactive bowel sounds present Results Labs Labs: Short CBC 06/17/24 06/18/24 Range/Units 21:25 05:19 WBC 7.4 7.0 (4.0-11.0) 10^3/uL Hgb 12.4 10.9 L (12.0-16.0) g/dL Hct 38.8 33.6 L (36.0-48.0) % Plt Count 198 178 (150-450) 10^3/uL BMP 06/17/24 21:25 Sodium 136 Potassium 4.0 Chloride 100 Carbon Dioxide 24.9 BUN 36.0 H Creatinine 1.84 H Glucose 137 H Calcium 8.6 Urine 06/18/24 Range/Units 00:04 Urine Color Lt. yellow (YELLOW) Urine Clarity Clear (CLEAR) Urine pH 6.0 (5.0-9.0) Ur Specific [place] 1.015 (1.005-1.025) Urine Protein 30 A (NEG/TRACE) mg/dL Urine Glucose (UA) Negative (NEGATIVE) mg/dL Assessment and Plan Assessment and Plan (1) Syncope: (2) Head injury: Plan Uncontrolled hypertension on admission, admitted for fall with head injury-CT scan of head and neck was normal. Review of the labs does show an acute urinary tract infection. This could be the etiology for either an orthostatic hypotension or still concern for bradycardia. Acute UTI-IV antibiotics, patient feels back to her normal self, if doing well later on this morning, early afternoon she could be discharged home in improving condition Patient is status post heart transplant, does have an elevated BNP today but that is probably her baseline. Mild acute kidney injury, baseline creatinine of 1.58, will 1.84 on admission which is 116% above baseline. Hypomagnesemia-IV supplementation Mildly low T3-we will monitor as an outpatient Admission status: Patient with syncopal episode, no further evidence of that here, currently in observation status, medically necessary treatment will span 1 midnight, maintain observation status
[2024-06-18] MEDS: CEFTRIAXONE 1,000 MG in 0.9 % SODIUM CHLORIDE 50 ML 100 MG IV (06:57)
[2024-06-18 07:01] LABS: Troponin I High Sensitivity 6.9 pg/mL (4.0-51.3)
[2024-06-18 07:08] LABS: Free T3 1.73 pg/mL (2.18-3.98); Thyroid Stimulating Hormone 2.275 uIU/mL (0.358-3.740)
[2024-06-18] MEDS: ASPIRIN 81 MG TABLET.DR PO (08:21)
[2024-06-18] MEDS: ATORVASTATIN CALCIUM 10 MG TABLET PO (08:21)
[2024-06-18] MEDS: CARVEDILOL 12.5 MG TABLET PO (08:21)
[2024-06-18] MEDS: LIPASE PROTEASE AMYLASE PO ×2 (08:21→12:10)
[2024-06-18] MEDS: [UNRECOGNIZED DRUG - OTHER] PO ×2 (08:21→12:10)
[2024-06-18] MEDS: CITALOPRAM HYDROBROMIDE 20 MG TABLET PO (08:21)
[2024-06-18] MEDS: MAGNESIUM OXIDE 400 MG TABLET PO (08:21)
[2024-06-18] MEDS: NON-FORMULARY 1 EACH (Mycophenolate Mofetil 250 mg capsule) 500 EACH PO (08:22)
[2024-06-18] MEDS: LEVOFLOXACIN IN DEXTROSE 5 % 750 MG/150 ML IV.SOLN 100 MG IV (08:34)
[2024-06-18] MEDS: FISH OIL 1,000 MG CAPSULE 1000 MG PO (08:34)
[2024-06-18 09:02] LABS: Alanine Aminotransferase 20 U/L (14-59); Albumin Globulin Ratio 1.3; Albumin Level 3.2 g/dL (3.4-5.0); Alkaline Phosphatase 200 U/L (46-116); Anion Gap 13.4; Aspartate Amino Transferase 16 U/L (15-37); BUN Creatinine Ratio 21.2; Bilirubin Total 0.7 mg/dL (0.2-1.0); Calcium 8.3 mg/dL (8.5-10.1); Carbon Dioxide 24.9 mmol/L (21.0-32.0); Chloride 103 mmol/L (98-107); Estimated GFR (African America 35 (>=60); Estimated GFR (Non-African Ame 29 (>=60); Globulin 2.5 g/dL; Glucose 116 mg/dL (74-106); Magnesium 1.1 mg/dL (1.8-2.4); Potassium 3.3 mmol/L (3.5-5.1); Sodium 138 mmol/L (136-145); Total Protein 5.7 g/dL (6.4-8.2)
--- NOTE | 2024-06-18 10:01 | CM.NOTE ---
07:[address] Davis. [address] Davis discussed labs and treatment plan. Discussed possible discharge home after see how does with PT/OT & after IV antibiotics. Plan is for probable discharge later & to be sent home on heart monitor & followup with Dr Davis next week. Alia verbalized understanding.
--- NOTE | 2024-06-18 10:02 | P.DS_ITS ---
DS: Providers Provider Date of admission: 06/17/24 23:48 Primary care physician: Vijay Davis MD Consults: 06/18/24 06:04 Occupational Therapy Eval and Treat Routine Reason for consultation: Only if needed for Rehab Has provider been notified: No Physical Therapy Eval and Treat Routine Reason for consultation: Eval and Treat Has provider been notified: No DS: Diagnosis Discharge Diagnosis (1) Syncope: (2) Head injury: Plan Uncontrolled hypertension on admission, admitted for fall with head injury-CT scan of head and neck was normal. Review of the labs does show an acute urinary tract infection. Improved at the time of discharge Acute UTI-IV antibiotics, patient feels back to her normal self, if doing well later on this morning, early afternoon she could be discharged home in improving condition-stable at the time of discharge Patient is status post heart transplant, does have an elevated BNP today but that is probably her baseline.-Stable at the time of discharge Mild acute kidney injury, baseline creatinine of 1.58, will 1.84 on admission which is 116% above baseline.-Improving at the time of discharge Hypomagnesemia-IV supplementation-will follow as an outpatient Mildly low T3-we will monitor as an outpatient Admission status: Patient with syncopal episode, no further evidence of that here, currently in observation status, medically necessary treatment will span 1 midnight, maintain observation status DS: Summary Hospital Course Hospital Course: Patient was admitted through the emergency room, stat this was syncopal episode, this happened on 2 occasions. No prodromal symptoms. Has been a little more tired lately. She has had some nausea vomiting diarrhea. Feels better overall this morning. Awaiting stool testing, urine culture pending for acute UTI, patient is does feel back to her normal self and would prefer to be discharged home. If she tolerates eating and ambulating without any issues she will be discharged home later today. Medications see list. Follow-up with me in the office next week. Status at Discharge Overall status at discharge: patient is back to baseline Time Spent with Patient Time attestation: Total time spent providing and/or coordinating discharge services: Time spent: greater than 30 minutes Exam Constitutional Vital Signs, click to edit/add: Last Vital Signs Temp 98.0 F 06/18/24 07:46 Pulse 75 06/18/24 09:54 Resp 18 06/18/24 07:46 BP 163/86 H 06/18/24 07:46 Pulse Ox 97 06/18/24 07:46 O2 Del Method Room Air 06/18/24 07:46 Documenting provider has reviewed patient's vital signs: yes Common normals: no apparent distress Chest Common normals: inspection of chest normal and palpation of chest normal Respiratory Common normals: normal respiratory effort and no retractions Cardio Common normals: regular rate GI Common normals: Normal to inspection, nondistended, normoactive bowel sounds present DS: Data Data Completed and Pending Labs on day of discharge: Labs from last 24 hours 06/18/24 06/18/24 06/18/24 06:15 05:19 00:04 WBC 7.0 RBC 3.80 L Hgb 10.9 L Hct 33.6 L MCV 88.4 MCH 28.7 MCHC 32.4 RDW 12.5 Plt Count 178 MPV 10.2 Neut % (Auto) 72.0 Lymph % (Auto) 14.7 L [place] % (Auto) 11.4 Eos % (Auto) 1.4 Baso % (Auto) 0.1 L Neut # (Auto) 5.0 Lymph # (Auto) 1.0 L [place] # (Auto) 0.8 Eos # (Auto) 0.1 Baso # (Auto) 0.0 Abs Immat Gran (auto) 0.03 Imm/Tot Granulo (auto) 0.4 Sodium 138 Potassium 3.3 L Chloride 103 Carbon Dioxide 24.9 Anion Gap 13.4 BUN 36.0 H Creatinine 1.70 H Est GFR ( Amer) 35 L Est GFR (Non-Af Amer) 29 L BUN/Creatinine Ratio 21.2 Glucose 116 H Calcium 8.3 L Phosphorus 3.0 Magnesium 1.1 L Total Bilirubin 0.7 AST 16 ALT 20 Alkaline Phosphatase 200 H Troponin I High Sens 6.9 NT-Pro-B Natriuret Pep 1805.0 H* Total Protein 5.7 L Albumin 3.2 L Globulin 2.5 Albumin/Globulin Ratio 1.3 Triglycerides 73 Cholesterol 83 LDL Cholesterol, Calc 27.4 VLDL Cholesterol 14.6 HDL Cholesterol 41 Cholesterol/HDL Ratio 2.0 TSH 2.275 Thyroxine (T4) 6.10 Free T3 1.73 L Urine Color Lt. yellow Urine Clarity Clear Urine pH 6.0 Ur Specific [place] 1.015 Urine Protein 30 A Urine Glucose (UA) Negative Urine Ketones Negative Urine Occult Blood Negative Urine Nitrite Negative Urine Bilirubin Negative Urine Urobilinogen 0.2 Ur Leukocyte Esterase Moderate A Urine RBC 0-2 Urine WBC 10-20 A Ur Squamous Epith Cells Rare Urine Crystals None seen Urine Bacteria Trace A Urine Casts None seen Urine Mucus None seen Ur Culture Indicated? Yes 06/17/24 21:25 WBC 7.4 RBC 4.32 Hgb 12.4 Hct 38.8 MCV 89.8 MCH 28.7 MCHC 32.0 RDW 12.6 Plt Count 198 MPV 10.6 Neut % (Auto) 77.2 H Lymph % (Auto) 13.0 L [place] % (Auto) 8.6 Eos % (Auto) 0.8 L Baso % (Auto) 0.1 L Neut # (Auto) 5.7 Lymph # (Auto) 1.0 L [place] # (Auto) 0.6 Eos # (Auto) 0.1 Baso # (Auto) 0.0 Abs Immat Gran (auto) 0.02 Imm/Tot Granulo (auto) 0.3 Sodium 136 Potassium 4.0 Chloride 100 Carbon Dioxide 24.9 Anion Gap 15.1 BUN 36.0 H Creatinine 1.84 H Est GFR ( Amer) 32 L Est GFR (Non-Af Amer) 26 L BUN/Creatinine Ratio 19.6 Glucose 137 H Calcium 8.6 Phosphorus Magnesium Total Bilirubin AST ALT Alkaline Phosphatase Troponin I High Sens 6.6 NT-Pro-B Natriuret Pep Total Protein Albumin Globulin Albumin/Globulin Ratio Triglycerides Cholesterol LDL Cholesterol, Calc VLDL Cholesterol HDL Cholesterol Cholesterol/HDL Ratio TSH Thyroxine (T4) Free T3 Urine Color Urine Clarity Urine pH Ur Specific [place] Urine Protein Urine Glucose (UA) Urine Ketones Urine Occult Blood Urine Nitrite Urine Bilirubin Urine Urobilinogen Ur Leukocyte Esterase Urine RBC Urine WBC Ur Squamous Epith Cells Urine Crystals Urine Bacteria Urine Casts Urine Mucus Ur Culture Indicated? Discharge Plan Discharge Disposition: Home, Self-Care Discharge Medications: New cefdinir 300 mg capsule 600 mg PO DAILY Qty: 20 0RF Continued levothyroxine 112 mcg tablet 112 mcg PO QDAY pramipexole 0.5 mg tablet 0.5 mg PO DAILY aspirin 81 mg tablet,delayed release (DR/EC) 81 mg PO DAILY tacrolimus 0.5 mg capsule 1 mg PO BID Rx Instructions: 1 MG capsule by mouth AM and PM simvastatin 20 mg tablet 20 mg PO DAILY Creon 36,000-114,000- 180,000 unit capsule,delayed release(DR/EC) 3 cap PO TID Rx Instructions: administer with meals and/or snacks omega-3 fatty acids-fish oil [Fish Oil] 360-1,200 mg capsule 1 cap PO DAILY mycophenolate mofetil 250 mg capsule 500 mg PO BID carvedilol 12.5 mg Tablet 12.5 mg PO BID Qty: 60 11RF magnesium oxide 400 mg (241.3 mg magnesium) Tablet 400 mg PO BID Qty: 60 11RF citalopram 20 mg tablet 20 mg PO DAILY Creon 36,000-114,000- 180,000 unit capsule,delayed release(DR/EC) See Rx Instructions PO TID Patient Comments: Take 3 capsules by mouth three times a day Rx Instructions: 3 capsules orally three times a day; administer with meals and/or snacks Print Language: Kinyarwanda Forms: Portal Instructions Follow Up Appointments: RishabhJune 23 @ 9:30am with Dr. Davis [phone]
[2024-06-18 10:18] LABS: Troponin I High Sensitivity 5.8 pg/mL (4.0-51.3)
[2024-06-18] MEDS: TACROLIMUS 0.5 MG 0.5 EACH PO (10:31)
[2024-06-18] MEDS: MAGNESIUM SULFATE IN WATER 2 GM/50 ML PREMIX IV (10:31)
--- NOTE | 2024-06-18 11:10 | SWNOTE1 ---
SW met with pt to discuss dc needs. Pt lives at [facility]. She lives on 3rd floor, but uses elevator. Pt does not use any DME at home. Pt has no concerns/needs at discharge. Plan is for her to go home today. Pt voiced she will need a ride home, SW to set up trips. Medicare Outpatient Observation Notice reviewed and discussed with patient. Pt. verbalized understanding and signed the form. Original given to patient and copy placed in patient?s chart.
--- NOTE | 2024-06-18 12:08 | SWNOTE1 ---
Pt did well with therapy and will be dc home. MAMADOU called and set up trips for 1:45-2:15. MAMADOU let nursing and pt know. Pt is returning home with no services.
--- NOTE | 2024-06-19 11:51 | CM.DCFOLLOWU ---
Person spoke with: patient How are you feeling? well How is your pain? none, had diarrhea last night, but better today Did you understand your discharge instructions? yes Do you have any questions about your discharge instructions? no Were you given any prescriptions at discharge? yes Were you able to get your prescriptions filled? picking it up today Do you understand how to take your medications as ordered? yes Do you have any questions about your follow up appointment and do you plan to keep your follow up appointment? no questions, follow up reviewed Is there anything else that you would like to discuss? no Questions/Comments/Concerns/Other: none
== END 2024-06-18 13:53 | disposition home or self-care (01) ==
LOC: ER 23:22 → MS 23:48
PROVIDERS: Registered Nurse; Admitting Provider Family Medicine; Emergency Provider Internal Medicine; PCP Family Medicine; Visit Provider Family Medicine
DX: N39.0 Urinary tract infection, site not specified (principal); R55 Syncope and collapse; S09.90XA Unspecified injury of head, initial encounter; I10 Essential (primary) hypertension; N17.9 Acute kidney failure, unspecified; E83.42 Hypomagnesemia; R94.6 Abnormal results of thyroid function studies; Z94.1 Heart transplant status; W19.XXXA Unspecified fall, initial encounter
CPT/HCPCS: 36415; 70450; 71045; 72125; 80048; 80053; 80061; 81001; 83735; 83880; 84100; 84436; 84443; 84481; 84484; 85025; 85610; 85730; 87045; 87046; 87086; 87427; 87493; 93246; 94761; 96365; 96366; 96367; 96368; 97161; 97165; 99285; G0378; J0696; J3475

== ENCOUNTER 2024-07-01 13:00 | Outpatient (OUT) | payer MEDICARE, MEDICAID, SELFPAY ==
--- OUTSIDE RECORDS SUMMARY | 2024-07-01 13:09 | XMS_ITS | CCD ---
Author Organization [facility] Care Team Providers Care Baker Biscuit Name Role Phone Tao Rooney MD Primary Care Provider [phone] SCOT ROGERS Primary Care Physician [phone] Tao Rooney MD Primary Care Provider [phone] NICOLETTE RICE Attending UnavailARELIS Rivera Referring Unavailable TAO ROONYE Primary Care Unavailable Tao Rooney MD Primary Care Provider [phone] TAO HEBERT Primary Care Unavailable MISC, DR LOONEY Consulting Unavailable MISC, DR LOONEY Attending Unavailable MISC, DR LOONEY Admitting Unavailable TORIBIO ., DR BURGER Primary Care Unavailable HOY ., DR BURGER Admitting Unavailable HOY ., DR BURGER Consulting Unavailable HOKrista ., DR BURGER Attending Unavailable TORIBIO ., [...] NANCY BARFIELD Attending Unavailable GOPAL CUI Consulting Unavailabl e TORIBIO Sanchez, DR BURGER Primary Care Unavailable NANCY BARFIELD Admitting Unavailable JAZLYN DUBOSE Consulting Unavailable NANCY BARFIELD Consulting Unavailable CAMERON NELSON Consulting Unavaila karen Sanchez, DR BURGER Primary Care Unavailable MOUKAHERMILO, DR LANCASTER Admitting Unavailable MOUKARBSAYDA, DR LANCASTER Attending Unavailable SCOT ROGERS Attending Unavailable HOY ., DR BURGER Primary Care Unavailable ZIEBER, DR HAI Chambers Consulting Unavailable SUE, SCOT Admitting Unavailable SUE, SCOT Consulting Unavailable HOY ., DR BURGER Primary Care Unavailable HOY ., DR BURGER Admitting Unavailable HOY ., DR BURGER Consulting Unavailable HOY ., DR BURGER Attending Unavailable WEST, DR JAZLYN Marcelino Consulting Unavailable SCOT ROGERS Consulting Unavailable SCOT ROGERS Admitting Unavailable HOY ., DR BURGRE Primary Care Unavailable SCOT ROGERS Attending Unavailable [...] Primary Care Unavailable ADELINE FLORES Consulting Unavailable AHOTALEXSANDER Consulting Unavailable AMY ., NANCY Consulting Unavailable SCOT ROGERS Attending Unavailable HOY ., DR BURGER Primary Care Unavailable SCOT ROGERS Consulting Unavailable SUE, SCOT Admitting Unavailable SALAM, Morgan Admitting Unavailable SALAM, Morgan Attending Unavailable SALAM, Morgan Admitting Unavailable SALAM, Morgan Attending Unavailable Richard Ca Attending Unavailable SALAM, Eddie Attending Unavailable SUE, SCOT S Referring Unavailable MOUKARBELANISHA Attending Unavailable MOUKARBEL, ANISHA Attending Unavailable ANISHA DINH Attending Unavailable NON STAFF Attending Provider Unavailable NON STAFF Admitting Unavailable NON STAFF Attending Unavailable Allergies Allergy Classification Reported Allergen(s) Allergy Type Date of Onset Reaction(s) Facility (10 sources) Acetaminophen / oxyCODONE; Translations: [OXYCODONE-ACETAM INOPHEN] Drug Allergy 05-18-20 14 GI Upset [facility] Work Phone: (11 sources) Promethazine; Translations: [PROMETHAZINE HCL] Drug Allergy 10-11-20 05 Other: See Comments [facility] (3 sources) Levamisole; Translations: [Phenergan] Drug Allergy 04-07-20 13 [facility] (1 source) Morphine Drug Allergy [facility] (1 source) No Known Medication Allergies; Translations: [No Known Medication Allergies] Propensity to adverse reactions (disorder) [facility] Repository (2 sources) Promethazine; Translations: [promethazine] Drug Allergy 08-12-20 22 Loss of consciousness (finding) [facility] Medications Current Medications Medication Drug Class(es) [...] on above: Take 3 capsules by m outh three times daily with meals. 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 Patients having hematocrit values >55% require a special collection tube for coagulation studies. Please contact the laboratory at [phone] for redraw instructions. INR in Platelet poor plasma by Coagulation assayOrdered By: NON STAFF on 06-18-2024 INR Coag (PPP) [Relative time] 1.3 {INR} Normal [facility] Comment on above: INR Therapeutic Rang e A) Pre- and Peroperative OAT started two weeks before surgery. NOT HIP SURGERY: 1.5 - 2.5 HIP SURGERY: 2 - 3B) Primary and secondary prevention of venous THROMBOSIS: 2 - 3C) Active venous thrombosis, pulmonary embolismand prevention of recurrent venous thrombosis: 2 - 3D) Prevention of arterial thromboembolismincluding patients with mechanical heart valves: 3 - 4.5 Result Comment: INR Therapeutic Range A) Pre- and Peroperative OAT started two weeks before surgery. NOT HIP SURGERY: 1.5 - 2.5 HIP SURGERY: 2 - 3 B) Primary and secondary prevention of venous THROMBOSIS: 2 - 3 C) Active venous thrombosis, pulmonary embolism and prevention of recurrent venous thrombosis: 2 - 3 D) Prevention of arterial thromboembolism including patients with mechanical heart valves: 3 - 4.5 Performed By: #### P T, PTT #### [facility] [address] [place] [address] Partial Thromboplastin Timeo n 06-18-2024 aPTT Coag (Bld) [Time] 31.8 s Normal 25.1-36.5 [facility] Comment on above: Result Comment: A he matocrit value greater than 55% may lead to inaccurate results in coagulation testing. Patients having hematocrit values >55% require a special collection tube for coagulation studies. Please contact the laboratory at [phone] for redraw instructions. PERFORMED BY: [place] [address] PATHOLOGIST QUALITY CHECKER ANDREIA ARRINGTON M.D. Performed By: #### P T, PTT #### [facility] [address] [place] [address] Prothrombin time (PT)Ordered By: NON STAFF on 06-18-2024 PT Coag (PPP) [Time] 14.4 s High 9.0-12.9 [facility] Comment on above: A hematocrit value g reater than 55% may lead to inaccurate results in coagulation testing. Patients having hematocrit values >55% require a special collection tube for coagulation studies. Please contact the laboratory at [phone] for redraw instructions. Result Comment: A he matocrit value greater than 55% may lead to inaccurate results in coagulation testing. Patients having hematocrit values >55% require a special collection tube for coagulation studies. Please contact the laboratory at [phone] for redraw instructions. Performed By: #### P T, PTT #### [facility] [address] [place] [address] [facility] 36on 04-06-2024 36 I reviewed the blood [...] monthly labs as ordered at last visit. [facility] Telephoneon 04-06-2024 Telephone [id number] Sylvia Herrera 1945 F [facility] Provider Department Center 04/06/2024 ANISHA JACOBS Family History Family history unknown: Yes [facility] Orders Onlyon 03-18-2024 Orders Only [id number] Sylvia Herrera 1945 Provider [facility] Family history unknown: Yes [facility] Office Visiton 02-03-2024 Follow-up visit [id number] Sylvia Herrera 1945 [facility] Provider Department Center 02/03/2024 ANISHA JACOBS Family History Family history unknown: Yes Level of Service:27559 ND OFFICE/OUTPATIENT ESTABLISHED MOD MDM 30 MIN [facility] Office Visiton 11-12-2023 Follow-up visit [id number] Sylvia Herrera 1945 [facility] Provider Department Center 11/12/2023 ANISHA JACOBS Family History Family history unknown: Yes Level of Service:57925 ND OFFICE/OUTPATIENT ESTABLISHED MOD MDM 30-39 MIN [facility] 36on 10-26-2023 36 Her tacrolimus level from 10/16/2023 was 1.4. still very low. I believe she is currently taking tacrolimus (Prograf) 0.5 mg bid. I want her to increase to 1 mg bid and obtain another trough level in 2-3 weeks. [facility] Telephoneon 10-26-2023 Telephone [id number] Sylvia Herrera 1945 Date Provider Department Center 10/26/2023 ANISHA JACOBS Family History Family history unknown: Yes [facility] Orders Onlyon 09-30-2023 Orders Only [id number] Sylvia Herrera 1945 Date Provider Department Center 09/30/2023 SHELBI DENNY Family History Family history unknown: Yes [facility] 36on 08-15-2023 36 Her Tacrolimus troug h level (taken on 08/06/2023, reported 08/14/2023) was low at 1.4. She is currently taking tacrolimus 0.5 mg once a day. Please have her increase it to 0.5 mg twice a day and have a repeat Tacrolimus trough level in 2 weeks. Her target level is around 5-10 ng/ml. [facility] Telephoneon 08-15-2023 Telephone [id number] Sylvia Herrera 1945 Date Provider Department Center 08/15/2023 ANISHA JACOBS Family History Family history unknown: Yes [facility] Office Visiton 08-07-2023 Follow-up visit [id number] Sylvia Herrera 1945 Date Provider Department Center 08/07/2023 ANISHA JACOBS Family History Family history unknown: Yes Level of Service:15903 ND OFFICE/OUTPATIENT ESTABLISHED MOD MDM 30-39 MIN Reason for Visit and Comments: Follow-up [596227] - 6 mo f/u no stress test or tacrolimus result as of 08/06 - does she plan on having stress test? [facility] BMPon 04-08-2023 Creatinine [Mass/Vol] 1.3 mg/dL Normal 0.5-1.3 [facility] Comment on above: Performed By: #### 1 [id number], [id number], [id number] ####[facility] [address] [place] [address] Urea nitrogen [Mass/Vol] 36 mg/dL High 5-21 [facility] Comment on above: Performed By: #### 1 [id number], [id number], [id number] ####[facility] [address] [place] [address] Urea nitrogen/Creatinine [Mass ratio] 28 No Units High 10-20 [facility] Comment on above: Performed By: #### 1 [id number], [id number], [id number] ####[facility] [address] [place] [address] Anion gap [Moles/Vol] 11 mmol/L Normal 6-16 [facility] Comment on above: Performed By: #### 1 [id number], [id number], [id number] ####[facility] [address] [place] [address] Calcium [Mass/Vol] 8.6 mg/dL Low 8.9-11.1 [facility] Comment on above: Performed By: #### 1 [id number], [id number], [id number] ####[facility] [address] [place] [address] Chloride [Moles/Vol] 99 mmol/L Low 101-111 [facility] Comment on above: Performed By: #### 1 [id number], [id number], [id number] ####[facility] [address] [place] [address] CO2 [Moles/Vol] 25 mmol/L Normal 21-31 [facility] Comment on above: Performed By: #### 1 [id number], 9824245, [id number] ####[facility] [address] [place] [address] Glucose [Mass/Vol] 124 mg/dL Normal 55-199 [facility] Comment on above: Result Comment: If t his glucose result represents a fasting glucose, interpretation should refer to the following reference range: 55-99 mg/dL Performed By: #### 1 [id number], 1077644, [id number] ####[facility] [address] [place] [address] Potassium [Moles/Vol] 4.1 mmol/L Normal 3.5-5.3 [facility] Comment on above: Performed By: #### 1 [id number], 8786278, [id number] ####[facility] [address] [place] [address] Sodium [Moles/Vol] 131 mmol/L Low 135-145 [facility] Comment on above: Performed By: #### 1 [id number], [id number], [id number] ####[facility] [address] [place] [address] CHEMISTRYOrdered By: SYSTEM SYSTEM on 04-08-2023 Anion gap [Moles/Vol] 11 mmol/L Normal 6 - 16 mEq/L [facility] Remisol Calcium [Mass/Vol] 8.6 mg/dL Low 8.9 - 11. 1 mg/dL [facility] Remisol Chloride [Moles/Vol] 99 mmol/L Low 101 - 1 11 mmol/L [facility] Remisol CO2 [Moles/Vol] 25 mmol/L Normal 21 - 31 mmol/L [facility] Remisol Creatinine [Mass/Vol] 1.3 mg/dL Normal 0.5 - 1.3 mg/dL [facility] Remisol GFR/1.73 sq M.predicted among non-blacks MDRD (S/P/Bld) [Vol rate/Area] 42 mL/min/1.73 m2 Low >=59mL/min/ 1.[address] [facility] Chem S Glucose [Mass/Vol] 124 mg/dL Normal 55 - 199 mg/dL [facility] Potassium [Moles/Vol] 4.1 mmol/L Normal 3.5 - 5.3 mmol/L [facility] Remisol Sodium [Moles/Vol] 131 mmol/L Low 135 - 145 mmol/L [facility] Remisol Troponin I.cardiac [Mass/Vol] 11.10 pg/mL Normal 10.10 - 27.10 pg/mL [facility] Remisol Urea nitrogen [Mass/Vol] 36 mg/dL High 5 - 21 mg/dL [facility] Remisol Urea nitrogen/Creatinine [Mass ratio] 28 mg/mg High 10 - 20 [facility] Remisol Troponin I.cardiac [Mass/Vol] 9.70 pg/mL Low 10.10 - 27.10 pg/mL [facility] Remisol Consent for Treatmenton 05- Consent for Treatment [id number]:12 7 Normal [facility] Discharge Instructionson Discharge Instructions [id number]:127 Normal [facility] ED Clinical Summaryon 2022 ED Clinical Summary (Inserted Image. Tram ble to display) [place] [id number] ED Clinical Summary Person Information Name: SYLVIA HERRERA [facility] Age: 77 Years : 1945 Sex: Female Language: Qatari PCP: SCOT ROGERS CNP Marital Status: Single [...] 04/08/2023 08:56:01 04/08/2023 08:56:01 04/08/2023 08:56:01 ADDRESS: [address] [place] [address] [phone] PHYS DOC NOTES: MEDICAL INFORMATION: Prescriptions Given: [...] With: Address: When: SCOT ROGERS [address] [place] [address] [phone] Business (1) In 3 days DIAGNOSIS: Chest pain; Hyponatremia Normal [facility] ED Note-Physicianon 04-08-20 ED Note-Physician Basic [...] and Complexity of Problems Differential Diagnosis: [] [facility] Data External documents reviewed: N/A [...] normal + 1 [X] <= Normal 0 ------ [X] 0-3 Points 0.9 - 1.7% risk of major adverse cardiac event in 6 weeks [] 4-6 Points 12-16.6% risk of major adverse cardiac event in 6 weeks [] 7-10 Points 50-65% risk of major adverse cardiac event in 6 weeks ------ [X] 0-3 Points with 2 sets of negative cardiac markers <1% risk of major adverse cardiac event in 30 days. ------ Discussed with: N/A Treatment and Disposition ED [...] 6 Hr. (more content not included)... Normal [facility] Comment on above: Result Comment: Elec [...] gland problems. ? Metabolic conditions, such as Winnebago's disease or syndrome of inappropriate antidiuresis (SIAD). [...] Follow these instructions at home: ? Take ujfy-ynh-cqfodkm and prescription medicines only as told by [...] provider. Document Revised: 05/29/2022 Document Reviewed: 05/29/2022 [employer] Patient Education ? 2022 [employer] Pulmonary Medicine Nonspecific Chest Pain, Adult [...] health care (more content not included)... Normal [facility] ED Patient Summaryon 023 ED Patient Summary (Inserted Image. Tram ble [place] [id number] Patient Discharge Instructions Person Information Name: SYLVIA HERRERA Age: 77 Years Arrival Date: 04/07/2023 21:18:46 Discharge Diagnosis: Chest pain; Hyponatremia Primary Care Physician: SCOT ROGERS CNP Provider Information Primary Provider: Richard Ca DO Advanced Project Coordinator:Montrell The exam and treatment you received in the Emergency Department were for an urgent problem and are not intended as complete care. It is important that you follow up with a doctor, nurse practitioner, or physician?s bus assistant for ongoing care. If your symptoms [...] Follow-up Instructions: With: Address: When: SCOT ROGERS [facility] [facility] [place] [address] [phone] Business (1) In 3 days In the event that this physician does not participate in your insurance network, please consult with your insurance company to find a nearby participating provider. Patient Education Materials: Hyponatremia; Nonspecific Chest Pain, Adult A MESSAGE TO ALL PATIENTS REGARDING OPIOIDS PRESCRIPTION OPIOIDS: WHAT YOU NEED TO KNOW Prescription opioids can be used to help relieve mefpczrh-qz-sficnx pain and are often prescribed following a [...] guidance from the Food and Drug Administration (www.fda.gov/Drugs/Resourc esForYou). ? Visit www.cdc.gov/drugoverdose to learn about the risks of opioids abuse and overdose. ? If you believe you may be struggling with addiction, tell your health child care director and ask for guidance or call SAMHSA?S National Helpline at 1-685-703-YQZB. v Source: [place] Departmen (more content not included)... [facility] EMS Documentationon 04-08-20 EMS Documentation Please click on link to see report [id number] 1KOHlw2VyWFv8PArwZGM2YiUaF QovSCBb XMN9QFNbGDksVg6TPGA2EuK9Ub 8GsE3kLMLhqhHeKPHMY04tTLoy MmV2Te1ADGB0NLm9Ac9+ICAg ICAgICAgICAgICAgICAgICAgIC AgICAgICAgICAgICAgICAgICAg ICAgICAgICAgICAgICAgICAg ICAgICAgICAgICAgICAgICAgIC ECSvXpJI8zhr4PWYs2wfUwQHf8 KYC7UUokRQIoFQRyOFBhIQYl ZSYkEX2QXjWcJEEoDVN1BRjiTA LfFYCptg5GQEEyHQFoYBQ4VERn MDAwMCBuDQowMDAwMDAxODM3 AYInAWQlEY5CLbYhNFFdEJQ4Qz laRSLfOXEmue5KWXUsWQCsIsHe OCAwMDAwMCBuDQowMDAwMDAy PytyMWDaUFAjDL7FJpXtFMHbEA TjRARyZUFaQLUqyd8UOUIzTQOb NgF6QgUaDLBfADCtVKqmSWVs BXRxUPWpJXUdXZQiPV9GBdElLA DhQDQ9DUehNPSgNNNaat0HZAQt DIMaUpa9WGJkVYWpGGJuFEvy LMTmBRDpNaV8GJUnBAAoSF4BUh UvHADqDYD1IWIqKFSlVYNrui0X HNPkVAGgRJE9QAHcYQOjJHTu QFgjQCLxKWN6OdBqJYByZYZzFR 4YNaLhMUWsLZK6TawcJMKiVSUg ow2XMWYpRLIrRSw3DECoLLRd IVJkJPstVFEhNDH3OrB0USXmAK OfQS5WBrEgTKMgQAW1BgngFSNn BATzvo2XOJPfLJIvWHogROWh HIZuXGQsPSzqYBJhDVU0CKF4YY QqQNBiJQ8LYlAjNUGgPUX2Nnpf FTZtPOXlao1DNWTuKVEbPiy8 TuTuRACbNVLdANgbARUfHGQ6BB Y7FLOhIIIlMF3SQbYeAJZwLHbe DOLpORCjVNSzsl6IIBKlDDSv OTkyMiAwMDAwMCBuDQowMDAwMD C0AUK0GXZjNTRwFE9LMzRvGZwu BRHTQxc6Ey7WEZKpKUQXKVXN Q7NyOOWGAcvHNKZ6TPH4FBl5DZ WbQOcvAcL6Iae8GeQEWJN5Tts0 HFnWGHL2LQs1QAWAK0E1FEvP NTZDRTA+PRmwSYYbdnM1RwG5Ly fyFp9abUQ0FECaItmmL0b6NLAj PspwP674mnUwOPcWSEkCJnqV EoSuWfA2xTWVTSRRY5I4M55pA7 1pHK4QBNbsB5t2ExjZRXJ6GWpK aIaJVpVnD11hMWqlHJVhA0Ef KvgvrDmqGJZ6T8ZywWU4L7wkz2 8cHILZGSjAy2ioJOJ4X82KLloI RslMcaOTG1a2rHMDxEK2Xegz V2iqEfPcAKLEPVBrZbKfYbkNF2 DBQ7pIQt6mDb5+ICAgICAgICAg ICAgICAgICAgICAgICAgICAg ICAgICAgICAgICAgICAgICAgIC AgICAgICAgICAgICAgICAgICAg ICAgICAgICAgICAgICAgICAg ICAgICAgICAgICAgICAgICAgIC AgICAgICAgICAgICAgICAgICAg ICAgICAgICAgICAgICAgICAg ICAgICAgICAgICAgICAgICAgIC AgICAgICAgICAgICAgICAgICAg ICAgICAgICAgICAgICAgICAg ICAgICAgICAgICAgICAgICAgIC AgICAgICAgICAgICAgICAgICAg ICAgICAgICAgICAgICAgICAg ICAgICAgICAgICAgICAgICAgIC AgICAgICAgICAgICAgICAgICAg ICAgICAgICAgICAgICAgICAg ICAgICAgICAgICAgICAgICAgIC AgICAgICAgICAgICAgICAgICAg ICAgICAgICAgICAgICAgICAg ICAgICAgICAgICAgICAgICAgIC AgICAgICAgICAgICAgICAgICAg ICAgICAgICAgICAgICAgICAg ZGHDJgV1AGF4dICyCe9RAM4TWA OMH3DQMq3XJVDzBQ6xvf5QPLbC I71yhAFcYQSnQONuYYNFIi6A lFStAAN3eV2eANl2JFGoDakoLt v7RE3OL492bQpkeiIgILIlGCNF Gg7PSUxsLF6zDDDwUAOpYt1g YDetZIMdROXyKfTqZXGAD0Y2iA WuF4EuuAYlr5gHOk0XPdVnKQ3h vd0SLGi7LQKci5ZpCKh4YNai RbpozECoCX2CqQG6BWHeU71gED znLDWoD5ViABWlTNkbUiJ0Nat+ Hm0Gl2EiRTHuIAk0tUOlLWEb YGDLYFBgYLjCAyLhQAEKUxiwAr K7PqLdIHVv8CDwICZe13RIJiIk TiDiKDduZqMupBMX7AfnHfDK PWch9HfFZhBDHkEUhaY3JMsmAG SMSsePMYe9GhRgKvgX6FeVasMj 9D9JDHCGLfvEZpYaGNM6ycPj qW6OYM5wu5BiVBfZEqrlGGBfBd aOYjp6By8So172JA73nhGmQlCr LZAKLHvcMLMwuZFEh4jtYuYl FAS6OGZaTpepAIdqRSKdWT22NA IlZNWOJo2UNUEgcQZbQPViPGfG U2wPIfdnK6HbLTnRJ9kpVbN7 IDggMCBSCj4+Cj4+Ip4WmKNcFP 3LVFcrYs2+ZZtbsiFwEiuOCf9J XJNtSL5evd4EZMjUS1AHr6ak JhXxOSJ2MMXyGkccCXwkJhfsiR McIG8XzDR4GSMeV56aCIfdLKTu D4CcRZv8Mh5PHUHopYLnPHQj ZMqPI1lBGcbjW5BuLQqQA4vvRn D2MIB6CVVwKab+Pgo+UskdH3Eo mLtoQFPwVv4bnUyvDRaoXCPl IM3snuUanFg+Ig3Oy2GoBFNqTF a6yNDP2VVz3XKcYEXtAIP5CXZb feNCJZgn4ZwHdHXdFaDwkCVt K8pqMSKi53hQIOHzOysVm7ciVu Bl2JbJZK+IF9QTmrZwIbLbmz1V ADwcgsRupBGwVA0FRvSmUX6l eo1NIXm2FBVit3XuSCw9FMvkEl 0tV03tkc4kiTheP1PwQOk+Pg0K XI4yx8NyZVwIDmMpHEIln9Cc ZDn4HHfhCg1zU88jig4riHnwU6 EgMQovTEMgMAovTEogMAovTFcg YSylYPpzAEbiP0AruOX8PIan M8JnXRu+Db7IVW4ks6TsKAnSUk IuWICvb7HqEPm1IHdxUq4hR99v qh4odLsoQ2YzAL8dFrJaWepv TEMgMAovTEogMAovTFcgMQovTU blBCkjP8NoxKN7BYqkV6FzXO0r MzMzMwo+Yb5MUT8xz5SvZPcG HcGtCCEfy6CxASc7TGcgDb6jG9 5ydl7skBgmL6GuGQ9bSMNoWXp+ Wg0SQE8lw8HjMZlPBnArBBUu z3IsIRb4AOteTl9rN66mra2atV ukG7RgVO5bXTP4SQplIYVzWJfn TEogMAovTFcgMQovTUwgNAov D7PujTG2TMadY6HyQF5cZYB4JR o+Bh2GJM3zj1CoLShRQxA7FFJq k6AcHEi6WQxtVIK0qhu9GWnf Gzw9LDYkAUHuUM16ZTWiUOv6Vo 6TU3MloSTdvg8PaHWgYWUFA5Wm XQHosrthOSlVC3HgaR9mD8Tr R2WuQ6DfexgnAUQVApqnJ76jka DfCUmjESW5SBJgIJL1JD1ME9H9 xVBjVNHskFZ5CPm7dpKrATzm RbWsV4Eux57cCTzNH4XsXFtcBb k7BbOjWpc5XpOnYzt2Y84JV8Sz TFdxHwv4CuBvLti5UzWfCkf3 Q93DV0WalZFznfHoBNOeWPkdNl YqV0Qtp18EwPXcWQUVR50ePMw+ YkpgR0jlGVuqH5U1eXMoJym+ VhfnQBlyEFFoNNI1mPTakzx+Pg 8NXX8ws3BxLDtZVdX9RDNnb6Ij CYb6PXcwNIG1rfy2RKzvLxd0 DWCqEYHzTM38ZVLtXHy0Ek8VP4 SxnPHpaw4AuCPlEJYWM9YcSBKn utcoMLbZG5GmpE3eX3OsI4Zi R2LcsxdqZAHPOrvrT36dtxZlYD p3MJH6PaK4HFG4Wq32Xz2JZ3R3 cJVhWWZxcOM1HAx9eoYoRZsj RxEaQ1Ugg70uOQoUI3UxhY4evu RdJT39HUqhIB7fVEiyWFcoIFQm Sr6ZagFwMCJdRmYrRSVtVFMy Gl7YxK7tzBatpoZ4hFFuYvmcAx UfX5Lgh98uYGj5XLdmRcZiTnQz MPZ7WFKfYAK1WAStZBI1NQdt WwRsFcIeXZZ8UJEzJNR7WCVeQM N1NAwlHW8zUNnnXSuoCBDdKr4Z aM0bzHapwkR1xXNsMtzuCnLb Cj4+Pnp5At8PQXWoVR01TgwbLV 46MiryOU95SgquZj8ZGEErOG22 EaSwBS29DkYwXH28HvYoSp2H n84mrA8lQkFdAE9EQ7W0itW3tV 6mRCxjTQTmJd2DCLCUVx5tTy0+ Tv5DaEJpmI2oXXinETHoBf1+ Kg1VsDWuXN7XWMU9ZQGyYw0+DQ hchhYcYjcVQt6YWODcDZHyKjfX Qht7Yk9YTKWaXn6grXTrCIwE OV4MD2AnT68vRPxDF2Wjr6Saht WgjtLPa417oeWzJWnkFQSWQMzj NK5jx5FyydjdB7fcEF40kFN1 VUkPW3A2UlH1jQMmB2U0iJJzLv 5Yi5UlyFJjCAJeHAplJLDLDa9Z oDHtVM4Ns020Ga7+DQplbmRv CbwFLw3PKVqdBGIjXvzNLzr7Vj 2GQTKwWg7jzXKdLNeKWY7ZN6Ay H59aYHuMT6PCKDL5b1KqyYug Sf9tFBvNU04uXAVkyE4uKTiIJT SgaUb0xKxAZ7UuQ8wplQM6PSuO ZG9i (more content not included)... Normal [facility] EMS Documentation Please click on link to see report Normal [facility] Comment on above: Result Comment: Miss ing Attachment - attachment exceeds size limitation [id number] Can be viewed in source system EMS Documentation [id number]:127 Normal [facility] Monitor Recordon 04-08-2023 Monitor Record [id number]#[id number]:127 Normal [facility] Progress Note-Nurseon 2022 Progress Note-Nurse Pt. requesting food, Dr. Ca aware. Pt. given food per verbal order from Dr. Ca. Normal [facility] Troponin 0 Hr.on 04-08-2023 Troponin I.cardiac [Mass/Vol] 9.20 pg/mL Low 10.10-27.10 [facility] Comment on above: Result Comment: The 95% CI (Confidence Interval) PPV (Positive Predictive Value) for myocardial infarction in females is 38 pg/mL, in males 51 pg/mL. The results should be used in conjunction with clinical conditions of myocardial infarction. ([employer] High Sensitivity Troponin I Instructions For Use, [employer], July 2018) Performed By: #### 2 [id number] ####[facility] [id number] [place] [address] Troponin 3 Hr.on 04-08-2023 Troponin I.cardiac [Mass/Vol] 9.70 pg/mL Low 10.10-27.10 [facility] Comment on above: Result Comment: The 95% CI (Confidence Interval) PPV (Positive Predictive Value) for myocardial infarction in females is 38 pg/mL, in males 51 pg/mL. The results should be used in conjunction with clinical conditions of myocardial infarction. ([employer] High Sensitivity Troponin I Instructions For Use, [employer], July 2018) Performed By: #### 1 [id number] ####[facility] [address] [place] [address] Troponin 6 Hr.on 04-08-2023 Troponin I.cardiac [Mass/Vol] 11.10 pg/mL Normal 10.10-27.10 [facility] Comment on above: Result Comment: The 95% CI (Confidence Interval) PPV (Positive Predictive Value) for myocardial infarction in females is 38 pg/mL, in males 51 pg/mL. The results should be used in conjunction with clinical conditions of myocardial infarction. ([employer] High Sensitivity Troponin I Instructions For Use, Hype[employer]ight, July 2018) Performed By: #### 1 [id number], [id number], [id number] ####[facility] [address] [place] [address] XR Chest Single Viewon 04-08 XR Chest [...] mGy = na DAP = na Normal [facility] eGFRon 04-08-2023 GFR/1.73 sq M.predicted among non-blacks MDRD (S/P/Bld) [Vol rate/Area] 42 mL/min/1.73 m2 Low >=59 [facility] Comment on above: Order Comment: Order added by Discern Expert. Result Comment: Lumber Hacker brennan kidney disease could be indicated at eGFR's of less than 60 mL/min/1.73m2. Kidney failure is indicated at less than 15 mL/min/1.73m2. Performed By: #### 1 [id number], [id number], [id number] ####[facility] [address] [place] [address] Auto Diffon 04-07-2023 Basophils/100 WBC (Bld) 0.4 % Normal 0.0-2.0 [facility] Comment on above: Order Comment: Order Added by Discern Expert. Performed By: #### 2 044886, 87528592, 8815231, 4163824, 61780156, 30864541 ####[facility] [address] [place] [address] Basophils/Leukocytes Auto (Bld) [Pure # fraction] 0.0 E9/L Normal 0.0-0.2 [facility] Comment on above: Order Comment: Order Added by Discern Expert. Performed By: #### 2 388278, 06468934, 9856648, 2450971, 09311571, 27020871 ####[facility] [address] [place] [address] Eosinophils/100 WBC (Bld) 3.0 % Normal 0.0-8.0 [facility] Comment on above: Order Comment: Order Added by Discern Expert. Performed By: #### 2 282015, 14163093, 6405125, 7351541, 74696480, 98687960 ####[address] [place] [address] Eosinophils/Leukocyt es Auto (Bld) [Pure # fraction] 0.2 E9/L Normal 0.0-0.5 [facility] Comment on above: Order Comment: Order Added by Discern Expert. Performed By: #### 2 212336, 01135255, 2582754, 3892321, 04428210, 09938625 ####[address] [address] Lymphocytes/100 WBC (Bld) 15.4 % Normal 14.0-50.0 [facility] Comment on above: Order Comment: Order Added by Discern Expert. Performed By: #### 2 009366, 92943808, 2515089, 7701091, 34831112, 84789766 ####[address] [address] Lymphocytes/Leukocyt es Auto (Bld) [Pure # fraction] 1.1 E9/L Normal 1.0-4.0 [facility] Comment on above: Order Comment: Order Added by Discern Expert. Performed By: #### 2 268367, 76740102, 3736382, 8894956, 49318838, 39270493 ####[address] [address] Monocytes/100 WBC (Bld) 12.8 % Normal 4.0-14.0 [facility] Comment on above: Order Comment: Order Added by Discern Expert. Performed By: #### 2 877068, 13554490, 7116910, 4872138, 73260535, 82623845 ####[address] [address] Monocytes/Leukocytes Auto (Bld) [Pure # fraction] 0.9 E9/L Normal 0.2-1.0 [facility] Comment on above: Order Comment: Order Added by Discern Expert. Performed By: #### 2 331112, 26877822, 1368998, 6344960, 57652950, 61137334 ####[facility] [address] [place] [address] Neutrophils/100 WBC (Bld) 68.4 % Normal 36.0-75.0 [facility] Comment on above: Order Comment: Order Added by Discern Expert. Performed By: #### 2 152697, 54254999, 9577842, 4342929, 42043315, 17086409 ####[facility] [address] [place] [address] Neutrophils/Leukocyt es Auto (Bld) [Pure # fraction] 5.0 E9/L Normal 2.0-7.5 [facility] Comment on above: Order Comment: Order Added by Discern Expert. Performed By: #### 2 082361, 61770011, 7842031, 6171907, 42952451, 97273467 ####[facility] [address] [place] [address] BMPon 04-07-2023 Creatinine [Mass/Vol] 1.5 mg/dL High 0.5-1.3 [facility] Comment on above: Performed By: #### 2 335665, 46896759, 1870096, 2669307, 02332167, 62481525 ####[facility] [address] [place] [address] Urea nitrogen [Mass/Vol] 40 mg/dL High 5-21 [facility] Comment on above: Performed By: #### 2 805336, 02575381, 8701359, 2737274, 97936133, 05751069 ####[facility] [address] [place] [address] Urea nitrogen/Creatinine [Mass ratio] 27 No Units High 10-20 [facility] Comment on above: Performed By: #### 2 551848, 45906492, 8978663, 0458666, 23351180, 87608767 ####[facility] [address] [place] [address] Anion gap [Moles/Vol] 11 mmol/L Normal 6-16 [facility] Comment on above: Performed By: #### 2 335277, 16884107, 2827230, 5398163, 79880167, 20926227 ####[facility] [address] [place] [place] [address] Calcium [Mass/Vol] 8.6 mg/dL Low 8.9-11.1 [facility] Comment on above: Performed By: #### 2 631672, 04289491, 8343034, 4885779, 52050710, 69111019 ####[facility] [address] [place] [place] [address] Chloride [Moles/Vol] 96 mmol/L Low 101-111 [facility] Comment on above: Performed By: #### 2 649909, 46285985, 8601307, 1956638, 58377289, 54794211 ####[facility] [address] [place] [address] CO2 [Moles/Vol] 24 mmol/L Normal 21-31 [facility] Comment on above: Performed By: #### 2 978075, 45006807, 0993860, 3635125, 49336585, 34156747 ####[facility] [address] [place] [address] Glucose [Mass/Vol] 139 mg/dL Normal 55-199 [facility] Comment on above: Result Comment: If t his glucose result represents a fasting glucose, interpretation should refer to the following reference range: 55-99 mg/dL Performed By: #### 2 149523, 47371453, 4713561, 4963753, 08489762, 39533392 ####[facility] [address] [place] [address] Potassium [Moles/Vol] 4.4 mmol/L Normal 3.5-5.3 [facility] Comment on above: Performed By: #### 2 840367, 00744614, 6099643, 6083535, 91728726, 22095997 ####[facility] [address] [place] [address] Sodium [Moles/Vol] 127 mmol/L Low 135-145 [facility] Comment on above: Performed By: #### 2 994289, 61707484, 0521051, 0134308, 88722984, 52302275 ####[address] [address] CBC w/ Auto Diffon 3 Erythrocyte distribution width (RBC) [Ratio] 13.0 % Normal 10.9-14.2 [facility] Comment on above: Performed By: #### 2 079346, 98686751, 5544256, 0215798, 71786538, 16753671 ####[address] [address] Hematocrit (Bld) [Volume fraction] 38.4 % Normal 34.0-46.0 [facility] Comment on above: Performed By: #### 2 460383, 99966636, 9325678, 2732792, 20991723, 50606396 ####[address] [address] Hemoglobin (Bld) [Mass/Vol] 12.6 g/dL Normal 12.0-16.0 [facility] Comment on above: Performed By: #### 2 865067, 92957837, 1486013, 7172376, 72613855, 40746649 ####[address] [place] [address] MCH (RBC) [Entitic mass] 27.9 pg Normal 27.0-34.0 [facility] Comment on above: Performed By: #### 2 197629, 55540176, 7602801, 6057453, 58002039, 09720945 ####[address] [place] [address] MCHC (RBC) [Mass/Vol] 32.7 g/dL Normal 31.4-36.0 [facility] Comment on above: Performed By: #### 2 617152, 16194981, 1386381, 8578786, 79178222, 45524432 ####[address] MCV (RBC) [Entitic vol] 85.3 fL Normal 80.0-100.0 [facility] Comment on above: Performed By: #### 2 087659, 83345208, 7179843, 9981082, 24174367, 46062428 ####[address] Platelet mean volume (Bld) [Entitic vol] 7.3 fL Normal 6.4-10.8 [facility] Comment on above: Performed By: #### 2 604039, 16690449, 3410105, 1896940, 97684848, 99161133 ####[address] [address] Platelets (Bld) [#/Vol] 167.0 E9/L Normal 150.0-500.0 [facility] Comment on above: Performed By: #### 2 563909, 69394304, 8229299, 4792214, 41566511, 87009512 ####[address] RBC (Bld) [#/Vol] 4.5 E12/L Normal 4.3-5.9 [facility] Comment on above: Performed By: #### 2 339563, 06278053, 5129011, 6829151, 83129098, 85902569 ####[address] [address] WBC corrected for nucl RBC Auto (Bld) [#/Vol] 7.3 E9/L Normal 4.0-11.0 [facility] Comment on above: Performed By: #### 2 523012, 42213819, 6787135, 2506391, 43973878, 23489232 ####[facility] [id number] CHEMISTRYOrdered By: SYSTEM SYSTEM on 04-07-2023 Anion gap [Moles/Vol] 11 mmol/L Normal 6 - 16 mEq/L [facility] Calcium [Mass/Vol] 8.6 mg/dL Low 8.9 - 11. 1 mg/dL [facility] Chloride [Moles/Vol] 96 mmol/L Low 101 - 1 11 mmol/L [facility] CO2 [Moles/Vol] 24 mmol/L Normal 21 - 31 mmol/L [facility] Creatinine [Mass/Vol] 1.5 mg/dL High 0.5 - 1.3 mg/dL [facility] GFR/1.73 sq M.predicted among non-blacks MDRD (S/P/Bld) [Vol rate/Area] 35 mL/min/1.73 m2 Low >=59mL/min/ 1.[address] [facility] Chem S Glucose [Mass/Vol] 139 mg/dL Normal [...] Normal 0.0 - 8.0 % [facility] HemeAutoSS Eosinophils/Leukocyt es Auto (Bld) [Pure # fraction] 0.2 E9/L Normal 0.0 - 0.5 E9/L [facility] HemeAutoSS Lymphocytes/100 WBC (Bld) 15.4 % Normal 14.0 - 50.0 % [facility] HemeAutoSS Lymphocytes/Leukocyt es Auto (Bld) [Pure # fraction] 1.1 E9/L Normal 1.0 - 4.0 E9/L [facility] HemeAutoSS Monocytes/100 WBC (Bld) 12.8 % Normal 4.0 - 14.0 % [facility] HemeAutoSS Monocytes/Leukocytes Auto (Bld) [Pure # fraction] 0.9 E9/L Normal 0.2 - 1.0 E9/L [facility] HemeAutoSS Neutrophils/100 WBC (Bld) 68.4 % Normal 36.0 - 75.0 % [facility] HemeAutoSS Neutrophils/Leukocyt es Auto (Bld) [Pure # fraction] 5.0 E9/L [...] 85.3 fL Normal 80.0 - 100.[address] [facility] HemeAutoSS Platelet mean volume (Bld) [Entitic vol] 7.3 fL Normal 6.4 - 10.8 fL [facility] HemeAutoSS Platelets (Bld) [#/Vol] 167.0 E9/L Normal 150.0 - 500.0 E9/L [facility] HemeAutoSS RBC (Bld) [#/Vol] 4.5 E12/L Normal 4.3 - 5.9 E12/L [facility] HemeAutoSS WBC corrected for nucl RBC Auto (Bld) [#/Vol] 7.3 E9/L Normal 4.0 - 11.0 E9/L [facility] HemeAutoSS PT & PTTon 04-07-2023 aPTT Coag (PPP) [Time] 27.1 second(s) Normal 25.1-36.5 [facility] Comment on above: Result Comment: Para [...] the same coagulation reagent and instrumentation as [facility]. Currently there are no coagulation studies available worldwide for children to 14 days, and no normal ranges. Heparin therapeutic range (represented by Anti-Factor Xa activity of 0.2 - 0.4 U/mL) corresponds to PTT of 56.6 - 109.0 sec. Performed By: #### 2 163344, 29876096, 9547550, 7883430, 41881155, 41477023 ####[facility] [address] [place] [address] INR Coag (PPP) [Relative time] 1.2 {INR} Invalid Interpretation Code [facility] Comment on above: Result Comment: INR results are specifically intended to assess patients stabilized on long-term Anticoagulation therapy suggested INR?s ?Less Intensive Anticoagulation? 2.0 ? 3.0 Conventional Range 3.0 ? 4.5 Performed By: #### 2 875885, 89961263, 9069985, 5738159, 03202222, 93627085 ####[facility] [address] [place] [address] PT Coag (PPP) [Time] 12.9 second(s) High 9.4-12.5 [facility] Comment on above: Result Comment: 15 [...] the same coagulation reagent and instrumentation as [facility]. Currently there are no coagulation studies available worldwide for children to 14 days, and no normal ranges. Performed By: #### 2 533076, 51267557, 8471622, 5678332, 99691508, 60313042 ####[facility] [address] [place] [address] Pre-Arrival Noteon 3 Pre-Arrival Note Pre-Arrival Summary Name: , [facility] Current Date: 04/07/2023 21:19:11 EDT Gender: Female Date of : Age: 77 Pre-Arrival Type: EMS ETA: 04/07/2023 21:15:00 EDT Primary Care Physician: Presenting Problem: chest pain Pre-Arrival User: Natalia Fischer RN Referring Source: Location: Completion Date/Time: 04/07/2023 21:06:00 [facility] Emergency Department Pre-Hospital Report Form _ Vital Signs: Pre-Hospital Report: Treatment in Route: Response to Treatment: Misc. Issues: Normal [facility] eGFRon 04-07-2023 GFR/1.73 sq M.predicted among non-blacks MDRD (S/P/Bld) [Vol rate/Area] 35 mL/min/1.73 m2 Low >=59 [facility] Comment on above: Order Comment: Order added by Discern Expert. Result Comment: Lumber Hacker brennan kidney disease could be indicated at eGFR's of less than 60 mL/min/1.73m2. Kidney failure is indicated at less than 15 mL/min/1.73m2. Performed By: #### 2 043116, 10943038, 9798007, 6478451, 49842154, 11690475 ####[facility] [address] [place] [address] INFLUENZA A AND B AGon 03-05 INFLUANEGH SEE BELOW Normal [facility] Comment on above: Result Comment: Nega tive for Flu A protein angiten. Infection due to Flu A cannot be ruled out. Flu A angiten in the sample may be below the detection limit of the test. Performed By: #### E RUR #### [facility] [address] [place] [address] Dr. Hardeep Rivera INFLUBNEG SEE BELOW Normal [facility] Comment on above: Result Comment: Nega tive for Flu B protein antigen. Infection due to Flu B cannot be ruled out. Flu B antigen in the sample may be below the detection limit of the test. Performed By: #### E RUR #### [facility] [address] [place] [address] Dr. Hardeep Rivera INFLUENZA A AG Negative Normal NEGATIVE SEE COMMENT [facility] Comment on above: Performed By: #### E RUR #### [facility] [address] [place] [address] Dr. Hardeep Rivera INFLUENZA B AG Negative Normal NEGATIVE SEE COMMENT [facility] Comment on above: Performed By: #### E RUR #### [facility] [address] [address] [address] Hardeep Rivera SYMPTOMATIC COVID-19 ANTIGEN on 03-05-2023 EUA Statement SEE BELOW Normal [facility] Comment on above: Result Comment: [...] sooner. Performed By: #### C VDAGS ####[facility] [address] [address]Dr. Hardeep Rivera SARS-CoV-2 (COVID-19) RNA ULICES+probe Ql (Unsp spec) Positive Abnormal NEGATIVE [facility] Comment on above: Performed By: #### C VDAGS ####[facility] [address] [address]Dr. Hardeep Rivera FK506 (TACROLIMUS) WHOLE BLO ODon 02-28-2023 Tacrolimus (FK506), Blood 5.8 ng/mL Normal 2.0-20.0 [facility] Comment on above: Result Comment: Trou gh (immediately following transplant) 15.0 . Trough (steady state, 2 weeks or more after transplant): 3.0 - 8.0 . Performed by LC-MS/MS technology. Performed By: #### F K506T ####[facility] [address] [address]DrLaura Rivera CBC AUTO DIFFon 02-14-2023 BASO # 0.0 103/ul Normal 0.0-0.1 [facility] Comment on above: Performed By: #### RANDALL OLSON #### [facility] [address] [place] [address] Dr. Hardeep Rivera Basophils/100 WBC (Bld) 0.5 % Normal 0.2-2.0 [facility] Comment on above: Performed By: #### HARI OLSONRO #### [facility] [address] [place] [address] Dr. Hardeep Rivera EO # 0.2 103/ul Normal 0.0-0.7 [facility] Comment on above: Performed By: #### HARI OLSONRO #### [facility] [address] [place] [address] Dr. Hardeep Rivera Eosinophils/100 WBC (Bld) 3.5 % Normal 0.9-7.0 [facility] Comment on above: Performed By: #### RANDALL OLSON #### [facility] [address] [place] [address] Dr. Hardeep Rivera Erythrocyte distribution width (RBC) [Ratio] 12.3 % Normal 11.0-15.0 [facility] Comment on above: Performed By: #### RANDALL OLSON #### [facility] [address] [place] [address] Dr. Hardeep Rivera Hematocrit (Bld) [Volume fraction] 38.7 % Normal 36.0-48.0 [facility] Comment on above: Performed By: #### HARI OLSONRO #### [facility] [address] [place] [address] Dr. Hardeep Rivera Hemoglobin (Bld) [Mass/Vol] 12.6 g/dL Normal 12.0-16.0 [facility] Comment on above: Performed By: #### HARI OLSONRO #### [facility] [address] [place] [address] Dr. Hardeep Rivera IG # 0.03 10e3/ul Normal 0.00-0.03 [facility] Comment on above: Performed By: #### HARI OLSONRO #### [facility] [address] [place] [address] Dr. Hardeep Rivera IG % 0.5 % Normal 0.0-0.5 [facility] Comment on above: Performed By: #### AKSHAT OLSONICRO #### [facility] [address] [place] [address] Dr. Hardeep Rivera LYMPH # 0.8 103/ul Critically low 1.2-3.8 [facility] Comment on above: Performed By: #### Deedee PINON UMICRO #### [facility] [address] [place] [address] Dr. Hardeep Rivera Lymphocytes/100 WBC (Bld) 13.2 % Critically low 20.5-60.0 [facility] Comment on above: Performed By: #### Deedee PINON UMICRO #### [facility] [address] [place] [address] Dr. Hardeep Rivera MANUAL DIFF REQ NO Normal [facility] Comment on above: Performed By: #### Deedee PINON UMICRO #### [facility] [address] [place] [address] Dr. Hardeep Rivera MCH (RBC) [Entitic mass] 28.3 pg Normal 26.7-34.0 [facility] Comment on above: Performed By: #### Deedee PINON UMICRO #### [facility] [address] [place] [address] Dr. Hradeep Rivera MCHC (RBC) [Mass/Vol] 32.6 g/dL Normal 29.9-35.2 [facility] Comment on above: Performed By: #### Deedee PINON UMICRO #### [facility] [address] [place] [address] Dr. Hardeep Rivera MCV (RBC) [Entitic vol] 87.0 fL Normal 81.0-99.0 [facility] Comment on above: Performed By: #### Deedee PINON UMICRO #### [facility] [address] [place] [address] Dr. Hardeep Rivera MONO # 0.8 103/ul Normal 0.3-0.8 [facility] Comment on above: Performed By: #### RANDALL OLSON #### [facility] [address] [place] [address] Dr. Hardeep Rivera Monocytes/100 WBC (Bld) 12.9 % Critically high 1.7-12.0 [facility] Comment on above: Performed By: #### HARI OLSONRO #### [facility] [address] [place] [address] Dr. Hardeep Rivera NEUT # 4.4 103/ul Normal 1.4-6.5 [facility] Comment on above: Performed By: #### HARI OLSONRO #### [facility] [address] [place] [address] Dr. Hardeep Rivera Neutrophils/100 WBC (Bld) 69.4 % Normal 43.0-75.0 [facility] Comment on above: Performed By: #### RANDALL OLSON #### [facility] [address] [place] [address] Dr. Hardeep Rivera Platelet mean volume (Bld) [Entitic vol] 9.0 fL Critically low 9.5-13.5 [facility] Comment on above: Performed By: #### HARI OLSONRO #### [facility] [address] [place] [address] Dr. Hardeep Rivera PLT 205 103/ul Normal 150-450 [facility] Comment on above: Performed By: #### HARI OLSONRO #### [facility] [address] [place] [address] Dr. Hardeep Rivera RBC 4.45 106/ul Normal 4.20-5.40 [facility] Comment on above: Performed By: #### HARI OLSONRO #### [facility] [address] [place] [address] Dr. Hardeep Rivera WBC 6.3 103/ul Normal 4.0-11.0 [facility] Comment on above: Performed By: #### HARI OLSONRO #### [facility] [address] [place] [address] HEAD WO CONon [...] unchanged from 2016 likely relating to dystrophic calcification/mineralizati on. Stable mild patchy hypoattenuation involving the supratentorial [...] NELSON Date: 2023-02-14 15:46 Normal [facility] ER URINE PROFILEon 3 Bilirubin Ql (U) Negative Normal NEGATIVE [facility] Comment on above: Performed By: #### RANDALL OLSON #### [facility] [address] [place] [address] Dr. Hardeep Rivera Clarity (U) CLEAR Normal CLEAR [facility] Comment on above: Performed By: #### RNADALL OLSON #### [facility] [address] [address] [address] Hardeep Rivera Color (U) LT. YELLOW Normal YELLOW [facility] Comment on above: Performed By: #### RANDALL OLSON #### [facility] [address] [place] [address] Dr. Hardeep Rivera ERUAHD A micrscopic examina tion will be performed if indicated. Normal [facility] Comment on above: Performed By: #### HARI OLSONRO #### [facility] [address] [place] [address] Dr. Hardeep Rivera Glucose Ql (U) Negative Normal NEGATIVE [facility] Comment on above: Performed By: #### Deedee PINON UMICRO #### [facility] [address] [place] [address] Dr. Hardeep Rivera Hemoglobin Ql (U) TRACE-INTACT Abnormal NEGATIVE [facility] Comment on above: Performed By: #### AKSHAT OLSONICRO #### [facility] [address] [place] [address] Dr. Hardeep Rivera Ketones Ql (U) Negative Normal NEGATIVE [facility] Comment on above: Performed By: #### Deedee PINON UMICRO #### [facility] [address] [place] [address] Dr. Hardeep Rivera LEUKOCYTES Negative Normal NEGATIVE [facility] Comment on above: Performed By: #### HARI OLSONRO #### [facility] [address] [place] [address] Dr. Hardeep Rivera Nitrite Ql (U) Negative Normal NEGATIVE [facility] Comment on above: Performed By: #### HARI OLSONRO #### [facility] [address] [place] [address] Dr. Hardeep Rivera pH (U) 7.0 [pH] Normal 5-9 [facility] Comment on above: Performed By: #### HARI OLSONRO #### [facility] [address] [place] [address] Dr. Hardeep Rivera Protein (U) [Mass/Vol] 30 mg/dL Abnormal NEGATIVE/ TRACE [facility] Comment on above: Performed By: #### HARI OLSONRO #### [facility] [address] [place] [address] Dr. Hardeep Rivera SPEC GRAVITY 1.010 Normal 1.005-<=1.0 25 [facility] Comment on above: Performed By: #### HARI OLSONRO #### [facility] [address] [address] [address] Hardeep Rivera UR MICRO IND INDICATED Normal [facility] Comment on above: Performed By: #### RANDALL OLSON #### [facility] [address] [address] [address] Hardeep Rivera Urobilinogen Qn (U) 0.2 {Kevon'U}/dL Normal 0.2 - 1. 0 [facility] Comment on above: Performed By: #### RANDALL OLSON #### [facility] [address] [address] [address] Hardeep Rivera PROF 14(COMP METB)on 023 Albumin [Mass/Vol] 3.5 g/dL Normal 3.4-5.0 [facility] Comment on above: Performed By: #### H STROPN, CMP, TSH ####[facility] [address] [address]DrLaura Rivera Albumin/Globulin [Mass ratio] 1.2 {ratio} Normal [facility] Comment on above: Performed By: #### H STROPN, CMP, TSH ####[facility] Rxectajcan[address] [address]Dr. Hardeep Rivera ALP [Catalytic activity/Vol] 153 U/L Critically high 46-116 [facility] Comment on above: Performed By: #### H STROPN, CMP, TSH ####[facility] [address]og[address] [address]Dr. Hardeep Rivera ALT [Catalytic activity/Vol] 21 U/L Normal 14-59 [facility] Comment on above: Performed By: #### H STROPN, CMP, TSH ####[facility] Fyhxrlvybi[address] [address]DrLaura Rivera Anion gap [Moles/Vol] 9.3 mmol/L Normal [facility] Comment on above: Performed By: #### H STROPN, CMP, TSH ####[facility] Zpdfdtmxmo[address] [address]Dr. Hardeep Rivera AST [Catalytic activity/Vol] 23 U/L Normal 15-37 [facility] Comment on above: Performed By: #### H STROPN, CMP, TSH ####[facility] [address] [address]Dr. Hardeep Rivera Bilirubin [Mass/Vol] 0.6 mg/dL Normal 0.2-1.0 [facility] Comment on above: Performed By: #### H STROPN, CMP, TSH ####[facility] [address] [address]Dr. Hardeep Rivera Calcium [Mass/Vol] 8.4 mg/dL Critically low 8.5-10.1 [facility] Comment on above: Performed By: #### H STRONATHANIEL, CMP, TSH ####[facility] [address] [address]Dr. Hardeep Rivera Chloride [Moles/Vol] 96 mmol/L Critically low 98-107 [facility] Comment on above: Performed By: #### H STROPN, CMP, TSH ####[facility] [address]om[address] [address]Dr. Hardeep Rivera CO2 [Moles/Vol] 29.3 mmol/L Normal 21.0-32.0 [facility] Comment on above: Performed By: #### H STRONATHANIEL, CMP, TSH ####[facility] [address]akeou[address] [address]Dr. Hardeep Rivera Creatinine [Mass/Vol] 1.16 mg/dL Critically high 0.55-1.02 [facility] Comment on above: Performed By: #### H STROPN, CMP, TSH ####[facility] [address]lif[address] [address]Dr. Hardeep Rivera EGFR-AF FINNISH 55 mL/min/1.73m2 Critically low >=60 [facility] Comment on above: Performed By: #### H STROPN, CMP, TSH ####[facility] [address]vpnnocc[address] [address]Dr. Hardeep Rivera EGFR-NON AF FINNISH 45 mL/min/1.73m2 Critically low >=60 [facility] Comment on above: Performed By: #### H STROPN, CMP, TSH ####[facility] Mqdgatmhkn[address] [address]Dr. Hardeep Rivera Globulin (S) [Mass/Vol] 2.9 g/dL Normal [facility] Comment on above: Performed By: #### H STROPN, CMP, TSH ####[facility] [address]ev[address]chucih[address] [address]Dr. Hardeep Rivera Glucose [Mass/Vol] 105 mg/dL Normal 74-106 [facility] Comment on above: Performed By: #### H STROPN, CMP, TSH ####[facility] X[address]zvavj[address] [address]Dr. Hardeep Rivera Potassium [Moles/Vol] 4.6 mmol/L Normal 3.5-5.1 [facility] Comment on above: Performed By: #### H STROPN, CMP, TSH ####[facility] Mmgnezrcgs[address] [address]Dr. Hardeep Rivera Protein [Mass/Vol] 6.4 g/dL Normal 6.4-8.2 [facility] Comment on above: Performed By: #### H STROPN, CMP, TSH ####[facility] [address] [place], [place] [address]Dr. Hardeep Rivera Sodium [Moles/Vol] 130 mmol/L Critically low 136-145 [facility] Comment on above: Performed By: #### H STROPN, CMP, TSH ####[facility] [address]br[address]fecwq[address] [address]Dr. Hardeep Rivera Urea nitrogen [Mass/Vol] 27.0 mg/dL Critically high 7.0-18.0 [facility] Comment on above: Performed By: #### H STROPN, CMP, TSH ####[facility] [address]mpmomep[address] [address]Dr. Hardeep Rivera Urea nitrogen/Creatinine [Mass ratio] 23.3 mg/mg Normal [facility] Comment on above: Performed By: #### H STROPN, CMP, TSH ####[facility] [address]zenbazbe[address] [address]Dr. Hardeep Rivera PROTIMEon 03-16-2023 INR Coag (PPP) [Relative time] 1.07 {INR} Normal [facility] Comment on above: Performed By: #### P T, PTT ####[facility] [address]ytudej[address] [address]DrLaura Hardeep Rivera INR GUIDELINES SEE BELOW Normal [facility] Comment on above: Result Comment: EDMUND RED INR: 2.0 - 3.0 CONDITIONS NOT LISTED BELOW 2.5 - 3.5 FOR PROSTHETIC HEART VALVE REPLACEMENT 2.5 - 3.5 RECURRENT THROMBOSIS Performed By: #### P T, PTT ####[facility] [address] [address]Dr. Hardeep Rivera PT Coag (PPP) [Time] 11.3 s Normal 9.0-11.6 [facility] Comment on above: Performed By: #### P T, PTT ####[facility] Air[address]cs[address] [place], [place] [address]Dr. Hardeep Rivera PTTon 02-14-2023 aPTT Coag (Bld) [Time] 29.1 s Normal 22.3-36.2 [facility] Comment on above: Performed By: #### P T, PTT ####[facility] Onyiyt[address] [place], [place] [address]Dr. Hardeep Rivera TROPONIN, HIGH SENSITIVITYon 02-14-2023 HSTROP 10.4 pg/mL Normal 4.0-51.3 [facility] Comment on above: Result Comment: CUT- OFF POINTS HAVE BEEN ESTABLISHED BASED ON THE FOURTH UNIVERSAL DEFINITIONS OF MYOCARDIAL INFARCTION. THE UPPER REFERENCE LIMIT (URL) OF TROPONIN, DEFINED THE 99TH PERCENTILE OF cTnI DISTRIBUTION IN A REFERENCE POPULATION, HAS BEEN CONFIRMED THE DECISION THRESHOLD FOR IA DIAGNOSIS. Performed By: #### H STROPN, CMP, TSH ####[facility] [address] [address]Dr. Hardeep Rivera TSHon 02-14-2023 TSH 1.237 uIU/mL Normal 0.358-3.740 The [facility] Comment on above: Performed By: #### H STROPN, CMP, TSH ####[facility] [address]ng[address] [address]Dr. Hardeep Rivera URINE MICROSCOPIC ONLYon BACTERIA NONE SEEN Normal NONE SEEN [facility] Comment on above: Performed By: #### AKSHAT OLSONICRO #### [facility] [address] [place] [address] Dr. Hardeep Rivera Bacteria identified Cx Nom (U) NOT INDICATED Normal [facility] Comment on above: Performed By: #### Deedee PINON UMICRO #### [facility] [address] [place] [address] Dr. Hardeep Rivera CAST NONE SEEN Normal NONE SEEN [facility] Comment on above: Performed By: #### Deedee PINON UMICRO #### [facility] [address] [place] [address] Dr. Hardeep Rivera Crystals LM Nom (Urine sed) NONE SEEN Normal NONE SEEN [facility] Comment on above: Performed By: #### Deedee PINON UMICRO #### [facility] [address] [place] [address] Dr. Hardeep Rivera Epithelial cells LM Ql (Urine sed) NONE SEEN Normal NONE SEEN /RARE [facility] Comment on above: Performed By: #### Deedee PINON UMICRO #### [facility] [address] [place] [address] Dr. Hardeep Rivera MUCOUS NONE SEEN Normal NONE SEEN [facility] Comment on above: Performed By: #### AKSHAT OLSONICRO #### [facility] [address] [place] [address] Dr. Hardeep Rivera RBC 0-2 Normal 0-2 [facility] Comment on above: Performed By: #### Deedee PINON UMICRO #### [facility] [address] [place] [address] Dr. Hardeep Rivera WBC NONE SEEN Normal NONE SEEN [facility] Comment on above: Performed By: #### Deedee PINON UMICRO #### [facility] [address] [place] [address] Dr. Hardeep Rivera XR CHEST 1 Von [...] DUBOSE Date: 2023-02-14 15:50 Normal [facility] FK506 (TACROLIMUS) WHOLE BLO ODon 02-13-2023 Tacrolimus (FK506), Blood 1.4 ng/mL Critically low 2.0-20.0 [facility] Comment on above: Result Comment: Trou gh (immediately following transplant) 15.0 . Trough (steady state, 2 weeks or more after transplant): 3.0 - 8.0 . Performed by LC-MS/MS technology. Performed By: #### E RUR #### [facility] [address] [address] [address] Hardeep Rivera PROF 14(COMP METB)on 023 Albumin [Mass/Vol] 3.5 g/dL Normal 3.4-5.0 [facility] Comment on above: Performed By: #### C MP ####[facility] [address] [address]DrLaura Rivera Albumin/Globulin [Mass ratio] 1.2 {ratio} Normal [facility] Comment on above: Performed By: #### C MP ####[facility] [address]sw[address] [address]DrLaura Rivera ALP [Catalytic activity/Vol] 149 U/L Critically high 46-116 [facility] Comment on above: Performed By: #### C MP ####[facility] [address]xf[address] [address]DrLaura Rivera ALT [Catalytic activity/Vol] 19 U/L Normal 14-59 [facility] Comment on above: Performed By: #### C MP ####[facility] [address]ryyll[address] [address]DrLaura Rivera Anion gap [Moles/Vol] 11.7 mmol/L Normal [facility] Comment on above: Performed By: #### C MP ####[facility] [address] [id number]. Hardeep Rivera AST [Catalytic activity/Vol] 27 U/L Normal 15-37 [facility] Comment on above: Performed By: #### C MP ####[facility] [address]ze[address] [place], [place] [address]He. Hardeep Rivera Bilirubin [Mass/Vol] 0.6 mg/dL Normal 0.2-1.0 [facility] Comment on above: Performed By: #### C MP ####[facility] [address] [address]Dr. Hardeep Rivera Calcium [Mass/Vol] 8.5 mg/dL Normal 8.5-10.1 [facility] Comment on above: Performed By: #### C MP ####[facility] [address]rq[address] [address]Dr. Hardeep Rivera Chloride [Moles/Vol] 96 mmol/L Critically low 98-107 [facility] Comment on above: Performed By: #### C MP ####[facility] [address]pju[address] [address]Dr. Hardeep Rivera CO2 [Moles/Vol] 28.1 mmol/L Normal 21.0-32.0 [facility] Comment on above: Performed By: #### C MP ####[facility] [address]qscl[address]io[address] [address]Dr. Hardeep Rivera Creatinine [Mass/Vol] 1.24 mg/dL Critically high 0.55-1.02 [facility] Comment on above: Performed By: #### C MP ####[facility] [address]roxdcvsvx[address] [address]Dr. Hardeep Rivera EGFR-AF FINNISH 51 mL/min/1.73m2 Critically low >=60 [facility] Comment on above: Performed By: #### C MP ####[facility] [address] [place], [place] [address]Dr. Hardeep Rivera EGFR-NON AF FINNISH 42 mL/min/1.73m2 Critically low >=60 [facility] Comment on above: Performed By: #### C MP ####[facility] [address]rj[address] [phone]. Hardeep Rivera Globulin (S) [Mass/Vol] 3.0 g/dL Normal [facility] Comment on above: Performed By: #### C MP ####[facility] [address]iegucuj[address] [address]Dr. Hardeep Rivera Glucose [Mass/Vol] 141 mg/dL Critically high 74-106 T [facility] Comment on above: Performed By: #### C MP ####[facility] [address]ft[address]gdns[address] [address]Dr. Hardeep Rivera Potassium [Moles/Vol] 4.8 mmol/L Normal 3.5-5.1 [facility] Comment on above: Performed By: #### C MP ####[facility] [address]vtck[address] [address]Dr. Hardeep Rivera Protein [Mass/Vol] 6.5 g/dL Normal 6.4-8.2 [facility] Comment on above: Performed By: #### C MP ####[facility] Qnhgdearql[address] [address]Dr. Hardeep Rivera Sodium [Moles/Vol] 131 mmol/L Critically low 136-145 [facility] Comment on above: Performed By: #### C MP ####[facility] [address]ssjtcu[address] [address]Dr. Hardeep Rivera Urea nitrogen [Mass/Vol] 29.0 mg/dL Critically high 7.0-18.0 [facility] Comment on above: Performed By: #### C MP ####[facility] [address]esbx[address] [address]Dr. Hardeep Rivera Urea nitrogen/Creatinine [Mass ratio] 23.4 mg/mg Normal [facility] Comment on above: Performed By: #### C MP ####[facility] [address] [place], [place] [address]Dr. Hardeep Rivera BNPon 01-09-2023 Natriuretic peptide B (Bld) [Mass/Vol] 336.0 pg/mL Normal <=1,800.0 [facility] Comment on above: Performed By: #### C MP, TSH, BNP, T7 ####[facility] [address]kmidkebd[address]198 [place], [place] [address]HxDr. Hardeep Rivera CBC AUTO DIFFon 01-09-2023 BASO # 0.0 103/ul Normal 0.0-0.1 [facility] Comment on above: Performed By: #### C BC #### [facility] [address] [address] [address] Hardeep Rivera Basophils/100 WBC (Bld) 0.4 % Normal 0.2-2.0 [facility] Comment on above: Performed By: #### C BC #### [facility] [address] [place] [address] Dr. Hardeep Rivera EO # 0.3 103/ul Normal 0.0-0.7 [facility] Comment on above: Performed By: #### C BC #### [facility] [address] [place] [address] Dr. Hardeep Rivera Eosinophils/100 WBC (Bld) 4.4 % Normal 0.9-7.0 [facility] Comment on above: Performed By: #### C BC #### [facility] [address] [place] [address] Dr. Hardeep Rivera Erythrocyte distribution width (RBC) [Ratio] 12.3 % Normal 11.0-15.0 [facility] Comment on above: Performed By: #### C BC #### [facility] [address] [place] [address] Dr. Hardeep Rivera Hematocrit (Bld) [Volume fraction] 43.3 % Normal 36.0-48.0 [facility] Comment on above: Performed By: #### C BC #### [facility] [address] [place] [address] Dr. Hardeep Rivera Hemoglobin (Bld) [Mass/Vol] 13.5 g/dL Normal 12.0-16.0 [facility] Comment on above: Performed By: #### C BC #### [facility] [address] [place] [address] Dr. Hardeep Rivera IG # 0.02 10e3/ul Normal 0.00-0.03 [facility] Comment on above: Performed By: #### C BC #### [facility] [address] [place] [address] Dr. Hardeep Rivera IG % 0.3 % Normal 0.0-0.5 [facility] Comment on above: Performed By: #### C BC #### [facility] [address] [place] [address] Dr. Hardeep Rivera LYMPH # 1.1 103/ul Critically low 1.2-3.8 [facility] Comment on above: Performed By: #### C BC #### [facility] [address] [place] [address] Dr. Hardeep Rivera Lymphocytes/100 WBC (Bld) 16.0 % Critically low 20.5-60.0 [facility] Comment on above: Performed By: #### C BC #### [facility] [address] [place] [address] Dr. Hardeep Rivera MANUAL DIFF REQ NO Normal [facility] Comment on above: Performed By: #### C BC #### [facility] [address] [place] [address] Dr. Hardeep Rivera MCH (RBC) [Entitic mass] 28.4 pg Normal 26.7-34.0 [facility] Comment on above: Performed By: #### C BC #### [facility] [address] [place] [address] Dr. Hardeep Rivera MCHC (RBC) [Mass/Vol] 31.2 g/dL Normal 29.9-35.2 [facility] Comment on above: Performed By: #### C BC #### [facility] [address] [place] [address] Dr. Hardeep Rivera MCV (RBC) [Entitic vol] 91.0 fL Normal 81.0-99.0 [facility] Comment on above: Performed By: #### C BC #### [facility] [address] [place] [address] Dr. Hardeep Rivera MONO # 1.0 103/ul Critically high 0.3-0.8 [facility] Comment on above: Performed By: #### C BC #### [facility] [address] [address] [address] Hardeep Rivera Monocytes/100 WBC (Bld) 14.7 % Critically high 1.7-12.0 [facility] Comment on above: Performed By: #### C BC #### [facility] [address] [place] [address] Dr. Hardeep Rivera NEUT # 4.4 103/ul Normal 1.4-6.5 [facility] Comment on above: Performed By: #### C BC #### [facility] [address] [place] [address] Dr. Hardeep Rivera Neutrophils/100 WBC (Bld) 64.2 % Normal 43.0-75.0 [facility] Comment on above: Performed By: #### C BC #### [facility] [address] [place] [address] Dr. Hardeep Rivera Platelet mean volume (Bld) [Entitic vol] 9.5 fL Normal 9.5-13.5 [facility] Comment on above: Performed By: #### C BC #### [facility] [address] [place] [address] Dr. Hardeep Rivera PLT 238 103/ul Normal 150-450 [facility] Comment on above: Performed By: #### C BC #### [facility] [address] [place] [address] Dr. Hardeep Rivera RBC 4.76 106/ul Normal 4.20-5.40 [facility] Comment on above: Performed By: #### C BC #### [facility] [address] [place] [address] Dr. Hardeep Rivera WBC 6.8 103/ul Normal 4.0-11.0 [facility] Comment on above: Performed By: #### C BC #### [facility] [address] [place] [address] Dr. Hardeep Rivera FREE THYROXINE INDEX T7on FTI 3.96 Normal 1.30-4.50 [facility] Comment on above: Performed By: #### C MP, TSH, BNP, T7 ####[facility] [address] [address]Dr. Hardeep Rivera T3U 35.0 % Normal 30.0-39.0 [facility] Comment on above: Performed By: #### C MP, TSH, BNP, T7 ####[facility] [address]sltm[address] [address]Dr. Hardeep Rivera T4 [Mass/Vol] 11.30 ug/dL Normal 4.80-13.90 [facility] Comment on above: Performed By: #### C MP, TSH, BNP, T7 ####[facility] [address] [address]Dr. Hardeep Rivera PROF 14(COMP METB)on 023 Albumin [Mass/Vol] 3.9 g/dL Normal 3.4-5.0 [facility] Comment on above: Performed By: #### C MP, TSH, BNP, T7 ####[facility] [address] [address]Dr. Hardeep Rivera Albumin/Globulin [Mass ratio] 1.2 {ratio} Normal [facility] Comment on above: Performed By: #### C MP, TSH, BNP, T7 ####[facility] [address] [address]Dr. Hardeep Rivera ALP [Catalytic activity/Vol] 151 U/L Critically high 46-116 [facility] Comment on above: Performed By: #### C MP, TSH, BNP, T7 ####[facility] [address]ttzwoz[address] [address]Dr. Hardeep Rivera ALT [Catalytic activity/Vol] 30 U/L Normal 14-59 [facility] Comment on above: Performed By: #### C MP, TSH, BNP, T7 ####[facility] [address]thpthl[address] [address]Dr. Hardeep Rivera Anion gap [Moles/Vol] 15.6 mmol/L Normal [facility] Comment on above: Performed By: #### C MP, TSH, BNP, T7 ####[facility] Owkitwxbba[address] [address]Dr. Hardeep Rivera AST [Catalytic activity/Vol] 23 U/L Normal 15-37 [facility] Comment on above: Performed By: #### C MP, TSH, BNP, T7 ####[facility] [address]jkcas[address] [address]Dr. Hardeep Rivera Bilirubin [Mass/Vol] 0.7 mg/dL Normal 0.2-1.0 [facility] Comment on above: Performed By: #### C MP, TSH, BNP, T7 ####[facility] [address]qni[address] [address]Dr. Hardeep Rivera Calcium [Mass/Vol] 9.0 mg/dL Normal 8.5-10.1 [facility] Comment on above: Performed By: #### C MP, TSH, BNP, T7 ####[facility] [address] [place], [place] [address]Dr. Hardeep Rivera Chloride [Moles/Vol] 97 mmol/L Critically low 98-107 [facility] Comment on above: Performed By: #### C MP, TSH, BNP, T7 ####[facility] [address] [place], [place] [address]Dr. Hardeep Rivera CO2 [Moles/Vol] 26.1 mmol/L Normal 21.0-32.0 [facility] Comment on above: Performed By: #### C MP, TSH, BNP, T7 ####[facility] [address] [place], [place] [address]Dr. Hardeep Rivera Creatinine [Mass/Vol] 1.78 mg/dL Critically high 0.55-1.02 [facility] Comment on above: Performed By: #### C MP, TSH, BNP, T7 ####[facility] [address]iz[address]wen[address] [place], [place] [address]Dr. Hardeep Rivera EGFR-AF FINNISH 33 mL/min/1.73m2 Critically low >=60 [facility] Comment on above: Performed By: #### C MP, TSH, BNP, T7 ####[facility] [address] [place], [place] [address]Dr. Hardeep Rivera EGFR-NON AF FINNISH 28 mL/min/1.73m2 Critically low >=60 [facility] Comment on above: Performed By: #### C MP, TSH, BNP, T7 ####[facility] [address] [address]Dr. Hardeep Rivera Globulin (S) [Mass/Vol] 3.3 g/dL Normal [facility] Comment on above: Performed By: #### C MP, TSH, BNP, T7 ####[facility] [address]tx[address]bs[address] [address]Dr. Hardeep Rivera Glucose [Mass/Vol] 127 mg/dL Critically high 74-106 T [facility] Comment on above: Performed By: #### C MP, TSH, BNP, T7 ####[facility] [address]uxvlbsp[address] [address]Dr. Hardeep Rivera Potassium [Moles/Vol] 3.7 mmol/L Normal 3.5-5.1 [facility] Comment on above: Performed By: #### C MP, TSH, BNP, T7 ####[facility] Alouxhimpr[address] [address]Dr. Hardeep Rivera Protein [Mass/Vol] 7.2 g/dL Normal 6.4-8.2 [facility] Comment on above: Performed By: #### C MP, TSH, BNP, T7 ####[facility] [address]aexb[address] [address]Dr. Hardeep Rivera Sodium [Moles/Vol] 135 mmol/L Critically low 136-145 [facility] Comment on above: Performed By: #### C MP, TSH, BNP, T7 ####[facility] [address]dfwrwe[address] [address]Dr. Hardeep Rivera Urea nitrogen [Mass/Vol] 54.0 mg/dL Critically high 7.0-18.0 [facility] Comment on above: Performed By: #### C MP, TSH, BNP, T7 ####[facility] [address] [address]Dr. Hardeep Rivera Urea nitrogen/Creatinine [Mass ratio] 30.3 mg/mg Normal [facility] Comment on above: Performed By: #### C MP, TSH, BNP, T7 ####[facility] [address] [place], [place] [address]Lo. Hardeep Rivera TSHon 01-09-2023 TSH 1.097 uIU/mL Normal 0.358-3.740 [facility] Comment on above: Performed By: #### C MP, TSH, BNP, T7 ####[facility] [address]kwdscrin[address] [place], [place] [address]Eo. Hardeep Rivera ECHOCARDIO M/2D COMPLETEon 0 12-13-2022 ECHOCARDIO M/2D COMPLETE Patient: SYLVIA HERRERA Exam Date: 12/13/2022 : 1945 Gender:F Ordering : [facility] Admission #: [id number] Family : Order #: [id number] CLICK HERE TO VIEW EXAM ECHOCARDIOGRAM REPORT [...] Area (VTI): 2.23 cm2, 2.23 cm2 Deceleration [place]: 1.44 m/s2 Pressure Half-Time: 850.98 ms Peak [...] Nolan M.D. on 12/14/2022 at 13:49 Normal [facility] US ALAN DOP LEG [...] by: HAI FOSTER Date: 2022-12-13 10:51 Normal [facility] BNPon 12-11-2022 Natriuretic peptide B (Bld) [Mass/Vol] 457.0 pg/mL Normal <=1,800.0 [facility] Comment on above: Performed By: #### RANDALL OLSON #### [facility] [address] [place] [address] Dr. Hardeep Rivera CBC AUTO DIFFon 12-11-2022 BASO # 0.0 103/ul Normal 0.0-0.1 [facility] Comment on above: Performed By: #### RANDALL OLSON #### [facility] [address] [address] [address] Hardeep Rivera Basophils/100 WBC (Bld) 0.4 % Normal 0.2-2.0 [facility] Comment on above: Performed By: #### RANDALL OLSON #### [facility] [address] [address] [address] Hardeep Rivera EO # 0.2 103/ul Normal 0.0-0.7 [facility] Comment on above: Performed By: #### RANDALL OLSON #### [facility] [address] [place] [address] Dr. Hardeep Rivera Eosinophils/100 WBC (Bld) 2.7 % Normal 0.9-7.0 [facility] Comment on above: Performed By: #### RANDALL OLSON #### [facility] [address] [place] [address] Dr. Hardeep Rivera Erythrocyte distribution width (RBC) [Ratio] 11.9 % Normal 11.0-15.0 [facility] Comment on above: Performed By: #### RANDALL OLSON #### [facility] [address] [place] [address] Dr. Hardeep Rivera Hematocrit (Bld) [Volume fraction] 40.2 % Normal 36.0-48.0 [facility] Comment on above: Performed By: #### RANDALL OLSON #### [facility] [address] [place] [address] Dr. Hardeep Rivera Hemoglobin (Bld) [Mass/Vol] 13.5 g/dL Normal 12.0-16.0 [facility] Comment on above: Performed By: #### RANDALL OLSON #### [facility] [address] [place] [address] Dr. Hardeep Rivera IG # 0.03 10e3/ul Normal 0.00-0.03 [facility] Comment on above: Performed By: #### RANDALL OLSON #### [facility] [address] [place] [address] Dr. Hardeep Rivera IG % 0.4 % Normal 0.0-0.5 [facility] Comment on above: Performed By: #### HARI OLSONRO #### [facility] [address] [place] [address] Dr. Hardeep Rivera LYMPH # 0.9 103/ul Critically low 1.2-3.8 [facility] Comment on above: Performed By: #### RANDALL OLSON #### [facility] [address] [place] [address] Dr. Hardeep Rivera Lymphocytes/100 WBC (Bld) 11.3 % Critically low 20.5-60.0 [facility] Comment on above: Performed By: #### Deedee PINON UMICRO #### [facility] [address] [place] [address] Dr. Hardeep Rivera MANUAL DIFF REQ NO Normal [facility] Comment on above: Performed By: #### Deedee PINON, UMICRO #### [facility] [address] [place] [address] Dr. Hardeep Rivera MCH (RBC) [Entitic mass] 28.4 pg Normal 26.7-34.0 [facility] Comment on above: Performed By: #### Deedee PINON UMICRO #### [facility] [address] [place] [address] Dr. Hardeep Rivera MCHC (RBC) [Mass/Vol] 33.6 g/dL Normal 29.9-35.2 [facility] Comment on above: Performed By: #### Deedee PINON ICRO #### [facility] [address] [place] [address] Dr. Hardeep Rivera MCV (RBC) [Entitic vol] 84.5 fL Normal 81.0-99.0 [facility] Comment on above: Performed By: #### Deedee PINON, UMICRO #### [facility] [address] [place] [address] Dr. Hardeep Rivera MONO # 1.0 103/ul Critically high 0.3-0.8 [facility] Comment on above: Performed By: #### Deedee PINON, UMICRO #### [facility] [address] [place] [address] Dr. Hardeep Rivera Monocytes/100 WBC (Bld) 12.5 % Critically high 1.7-12.0 [facility] Comment on above: Performed By: #### Deedee PINON, UMICRO #### [facility] [address] [place] [address] Dr. Hardeep Rivera NEUT # 5.9 103/ul Normal 1.4-6.5 [facility] Comment on above: Performed By: #### RANDALL OLSON #### [facility] [address] [place] [address] Dr. Hardeep Rivera Neutrophils/100 WBC (Bld) 72.7 % Normal 43.0-75.0 [facility] Comment on above: Performed By: #### RANDALL OLSON #### [facility] [address] [place] [address] Dr. Hardeep Rivera Platelet mean volume (Bld) [Entitic vol] 8.6 fL Critically low 9.5-13.5 [facility] Comment on above: Performed By: #### RANDALL OLSON #### [facility] [address] [place] [address] Dr. Hardeep Rivera PLT 226 103/ul Normal 150-450 [facility] Comment on above: Performed By: #### RANDALL OLSON #### [facility] [address] [place] [address] Dr. Hardeep Rivera RBC 4.76 106/ul Normal 4.20-5.40 [facility] Comment on above: Performed By: #### RANDALL OLSON #### [facility] [address] [place] [address] Dr. Hardeep Rivera WBC 8.2 103/ul Normal 4.0-11.0 [facility] Comment on above: Performed By: #### RANDALL OLSON #### [facility] [address] [place] [address] Dr. Hardeep Rivera FREE THYROXINE INDEX T7on 0 12-11-2022 FTI 3.40 Normal 1.30-4.50 [facility] Comment on above: Performed By: #### RANDALL OLSON #### [facility] [address] [place] [address] Dr. Hardeep Rivera T3U 34.0 % Normal 30.0-39.0 [facility] Comment on above: Performed By: #### RANDALL OLSON #### [facility] [address] [place] [address] Dr. Hardeep Rivera T4 [Mass/Vol] 10.00 ug/dL Normal 4.80-13.90 [facility] Comment on above: Performed By: #### Deedee PINON, UMICRO #### [facility] [address] [place] [address] Dr. Hardeep Rivera PROF 14(COMP METB)on 023 Albumin [Mass/Vol] 3.8 g/dL Normal 3.4-5.0 [facility] Comment on above: Performed By: #### Deedee PINON, UMICRO #### [facility] [address] [place] [address] Dr. Hardeep Rivera Albumin/Globulin [Mass ratio] 1.1 {ratio} Normal [facility] Comment on above: Performed By: #### Deedee PINON, UMICRO #### [facility] [address] [place] [address] Dr. Hardeep Rivera ALP [Catalytic activity/Vol] 192 U/L Critically high 46-116 [facility] Comment on above: Performed By: #### Deedee PINON, UMICRO #### [facility] [address] [place] [address] Dr. Hardeep Rivera ALT [Catalytic activity/Vol] 22 U/L Normal 14-59 [facility] Comment on above: Performed By: #### Deedee PINON, UMICRO #### [facility] [address] [place] [address] Dr. Hardeep Rivera Anion gap [Moles/Vol] 11.4 mmol/L Normal [facility] Comment on above: Performed By: #### Deedee PINON, UMICRO #### [facility] [address] [place] [address] Dr. Hardeep Rivera AST [Catalytic activity/Vol] 22 U/L Normal 15-37 [facility] Comment on above: Performed By: #### Deedee PINON, UMICRO #### [facility] [address] [place] [address] Dr. Hardeep Rivera Bilirubin [Mass/Vol] 0.5 mg/dL Normal 0.2-1.0 [facility] Comment on above: Performed By: #### HARI OLSONRO #### [facility] [address] [address] [address] Hardeep Rivera Calcium [Mass/Vol] 9.1 mg/dL Normal 8.5-10.1 [facility] Comment on above: Performed By: #### HARI OLSONRO #### [facility] [address] [address] [address] Hardeep Rivera Chloride [Moles/Vol] 93 mmol/L Critically low 98-107 [facility] Comment on above: Performed By: #### HARI OLSONRO #### [facility] [address] [place] [address] Dr. Hardeep Rivera CO2 [Moles/Vol] 30.8 mmol/L Normal 21.0-32.0 [facility] Comment on above: Performed By: #### HARI OLSONRO #### [facility] [address] [place] [address] Dr. Hardeep Rivera Creatinine [Mass/Vol] 1.49 mg/dL Critically high 0.55-1.02 [facility] Comment on above: Performed By: #### HARI OLSONRO #### [facility] [address] [place] [address] Dr. Hardeep Rivera EGFR-AF FINNISH 41 mL/min/1.73m2 Critically low >=60 [facility] Comment on above: Performed By: #### HARI OLSONRO #### [facility] [address] [place] [address] Dr. Hardeep Rivera EGFR-NON AF FINNISH 34 mL/min/1.73m2 Critically low >=60 [facility] Comment on above: Performed By: #### HARI OLSONRO #### [facility] [address] [place] [address] Dr. Hardeep Rivera Globulin (S) [Mass/Vol] 3.4 g/dL Normal [facility] Comment on above: Performed By: #### HARI OLSONRO #### [facility] [address] [place] [address] Dr. Hardeep Rivera Glucose [Mass/Vol] 116 mg/dL Critically high 74-106 [facility] Comment on above: Performed By: #### AKSHAT OLSONICRO #### [facility] [address] [place] [address] Dr. Hardeep Rivera Potassium [Moles/Vol] 4.2 mmol/L Normal 3.5-5.1 [facility] Comment on above: Performed By: #### Deedee PINON UMICRO #### [facility] [address] [place] [address] Dr. Hardeep Rivera Protein [Mass/Vol] 7.2 g/dL Normal 6.4-8.2 [facility] Comment on above: Performed By: #### Deedee PINON UMICRO #### [facility] [address] [place] [address] Dr. Hardeep Rivera Sodium [Moles/Vol] 131 mmol/L Critically low 136-145 [facility] Comment on above: Performed By: #### Deedee PINON UMICRO #### [facility] [address] [address] [address] Hardeep Rivera Urea nitrogen [Mass/Vol] 38.0 mg/dL Critically high 7.0-18.0 [facility] Comment on above: Performed By: #### Deedee PINON UMICRO #### [facility] [address] [place] [address] Dr. Hardeep Rivera Urea nitrogen/Creatinine [Mass ratio] 25.5 mg/mg Normal [facility] Comment on above: Performed By: #### Deedee PINON UMICRO #### [facility] [address] [place] [address] Dr. Hardeep Rivera TSHon 12-11-2022 TSH 6.407 uIU/mL Critically high 0.358-3.740 [facility] Comment on above: Performed By: #### Deedee PINON, UMICRO #### [facility] [address] [place] [address] Dr. Hardeep Rivera Covid-19 PCR (CVDTBH)on 11-01 SARS-CoV-2 (COVID-19) RNA ULICES+probe Ql (Unsp spec) Not detected Normal NOT DETECTED [facility] Comment on above: Result Comment: This test is not yet approved or cleared by the [place] FDA. When there are no FDA-approved or cleared tests available, and other criteria are met, FDA can make tests available under an emergency access mechanism called an Emergency Use Authorization (EUA). The EUA for this test is supported by the [place] of Health and Human Service's (HHS's) declaration [...] consistent with SARS-CoV-2. Performed By: #### [facility] #### [facility] [address] [place] [address] Dr. Hardeep Rivera INFLUENZA A AND B AGon 11-14 [facility] SEE BELOW Normal [facility] Comment on above: Result Comment: Nega tive for Flu A protein angiten. Infection due to Flu A cannot be ruled out. Flu A angiten in the sample may be below the detection limit of the test. Performed By: #### E RANDALL PINON #### [facility] [address] [place] [address] Dr. Hardeep Rivera [facility] SEE BELOW Normal [facility] Comment on above: Result Comment: Nega tive for Flu B protein antigen. Infection due to Flu B cannot be ruled out. Flu B antigen in the sample may be below the detection limit of the test. Performed By: #### E RANDALL PINON #### [facility] [address] [place] [address] Dr. Hardeep Rivera INFLUENZA A AG Negative Normal NEGATIVE SEE COMMENT [facility] Comment on above: Performed By: #### E KATHRIN, AKSHATICRO #### [facility] [address] [address] [address] Hardeep Rivera INFLUENZA B AG Negative Normal NEGATIVE SEE COMMENT [facility] Comment on above: Performed By: #### E KATHRIN, AKSHATICRO #### [facility] [address] [place], [place] [address] Dr. Hardeep Rivera INTERNAL CONTROLS Within Normal Limits Normal Wi thin Normal Limits [facility] Comment on above: Performed By: #### E KATHRIN, AKSHATICRO #### [facility] [address] [address] [address] Hardeep Rivera Covid-19 PCR [facility])on SARS-CoV-2 (COVID-19) RNA ULICES+probe Ql (Unsp spec) Not detected Normal NOT DETECTED [facility] Comment on above: Result Comment: This test is not yet approved or cleared by the [place] FDA. When there are no FDA-approved or cleared tests available, and other criteria are met, FDA can make tests available under an emergency access mechanism called an Emergency Use Authorization (EUA). The EUA for this test is supported by the [place] of Health and Human Service's (HHS's) declaration [...] SARS-CoV-2. Performed By: #### C VDTB #### [facility] [address] [place] [address] Dr. Hardeep Rivera INFLUENZA A AND B AGon 10-03 INFLUANEGH SEE BELOW Normal [facility] Comment on above: Result Comment: Nega tive for Flu A protein angiten. Infection due to Flu A cannot be ruled out. Flu A angiten in the sample may be below the detection limit of the test. Performed By: #### Deedee PINON, UMICRO #### [facility] [address] [place] [address] [facility] SEE BELOW Normal [facility] Comment on above: Result Comment: Nega tive for Flu B protein antigen. Infection due to Flu B cannot be ruled out. Flu B antigen in the sample may be below the detection limit of the test. Performed By: #### Deedee PINON, UMICRO #### [facility] [address] [place] [address] Dr. Hardeep Rivera INFLUENZA A AG Negative Normal NEGATIVE SEE COMMENT [facility] Comment on above: Performed By: #### Deedee PINON, UMICRO #### [facility] [address] [place] [address] Dr. Hardeep Rivera INFLUENZA B AG Negative Normal NEGATIVE SEE COMMENT [facility] Comment on above: Performed By: #### Deedee PINON, UMICRO #### [facility] [address] [place] [address] Dr. Hardeep Rivera INTERNAL CONTROLS Within Normal Limits Normal Wi thin Normal Limits [facility] Comment on above: Performed By: #### Deedee PINON, UMICRO #### [facility] [address] [place] [address] Dr. Hardeep Clark [facility] -- SYLVIA HERRERA ([id number]) 1945 F Date Time Provider Department 08/16/22 SOY MCCANN [facility] During your visit today, we [...] of Date: 08/16/2022 Noted Allergy Reaction PERCOCET (OXYCODONE-ACETAMINOPHEN)0 05/18/2014 8 - GI Upset PHENERGAN (PROMETHAZINE HCL) [...] mg by mouth three times daily. - ynjmbr-ynlyafbl-cswbdja (CREON) 24,000-76,000 -120,000 unit cpDR Take 3 [...] Status:Closed by SOY MCCANN on 08/16/22 Normal [facility] AMYLASEon 08-04-2022 Amylase [Catalytic activity/Vol] 155 U/L Critically high 25-115 [facility] Comment on above: Performed By: #### C MP, LIPA, BRITTNEY ####[facility] [address] [place], [place] [address]DrLaura Rivera CBC AUTO DIFFon 08-04-2022 BASO # 0.0 103/ul Normal 0.0-0.1 [facility] Comment on above: Performed By: #### C BC ####[facility] [address] [place], [place] [address]DrLaura Rivera Basophils/100 WBC (Bld) 0.3 % Normal 0.2-2.0 [facility] Comment on above: Performed By: #### C BC ####[facility] [address] [address]DrLaura Rivera EO # 0.1 103/ul Normal 0.0-0.7 [facility] Comment on above: Performed By: #### C BC ####[facility] [address] [place], [place] [address]DrLaura Rivera Eosinophils/100 WBC (Bld) 1.2 % Normal 0.9-7.0 [facility] Comment on above: Performed By: #### C BC ####[facility] [address] [place], [place] [address]Dr. Hardeep Rivera Erythrocyte distribution width (RBC) [Ratio] 12.2 % Normal 11.0-15.0 [facility] Comment on above: Performed By: #### C BC ####[facility] [address] [place], [place] [address]Dr. Hardeep Rivera Hematocrit (Bld) [Volume fraction] 38.3 % Normal 36.0-48.0 [facility] Comment on above: Performed By: #### C BC ####[facility] [address] [place], [place] [address]Dr. Hardeep Rivera Hemoglobin (Bld) [Mass/Vol] 12.9 g/dL Normal 12.0-16.0 [facility] Comment on above: Performed By: #### C BC ####[facility] [address] [place], [place] [address]Dr. Hardeep Rivera IG # 0.02 10e3/ul Normal 0.00-0.03 [facility] Comment on above: Performed By: #### C BC ####[facility] [address] [place], [place] [address]Dr. Hardeep Rivera IG % 0.3 % Normal 0.0-0.5 [facility] Comment on above: Performed By: #### C BC ####[facility] [address] [place], [place] [address]Dr. Hardeep Rivera LYMPH # 1.1 103/ul Critically low 1.2-3.8 The [facility] Comment on above: Performed By: #### C BC ####[facility] [address] [place], [place] [address]Dr. Hardeep Rivera Lymphocytes/100 WBC (Bld) 16.6 % Critically low 20.5-60.0 [facility] Comment on above: Performed By: #### C BC ####[facility] [address] [place], [place] [address]Dr. Hardeep Rivera MANUAL DIFF REQ NO Normal [facility] Comment on above: Performed By: #### C BC ####[facility] [address] [address]Dr. Hardeep Rivera MCH (RBC) [Entitic mass] 29.7 pg Normal 26.7-34.0 [facility] Comment on above: Performed By: #### C BC ####[facility] [address] [address]Dr. Hardeep Rivera MCHC (RBC) [Mass/Vol] 33.7 g/dL Normal 29.9-35.2 [facility] Comment on above: Performed By: #### C BC ####[facility] [address] [place], [place] [address]Dr. Hardeep Rivera MCV (RBC) [Entitic vol] 88.2 fL Normal 81.0-99.0 [facility] Comment on above: Performed By: #### C BC ####[facility] [address] [place], [place] [address]Dr. Hardeep Rivera MONO # 0.7 103/ul Normal 0.3-0.8 [facility] Comment on above: Performed By: #### C BC ####[facility] [address] [place], [place] [address]Dr. Hardeep Rivera Monocytes/100 WBC (Bld) 11.1 % Normal 1.7-12.0 [facility] Comment on above: Performed By: #### C BC ####[facility] [address] [place], [place] [address]DrLaura Rivera NEUT # 4.6 103/ul Normal 1.4-6.5 [facility] Comment on above: Performed By: #### C BC ####[facility] [address] [place], [place] [address]Dr. Hardeep Rivera Neutrophils/100 WBC (Bld) 70.5 % Normal 43.0-75.0 [facility] Comment on above: Performed By: #### C BC ####[facility] [address] [place], [place] [address]Dr. Hardeep Rivera Platelet mean volume (Bld) [Entitic vol] 9.4 fL Critically low 9.5-13.5 [facility] Comment on above: Performed By: #### C BC ####[facility] [address] [place], [place] [address]Jn. Hardeep Rivera PLT 203 103/ul Normal 150-450 [facility] Comment on above: Performed By: #### C BC ####[facility] [address] [place], [place] [address]Do. Hardeep Rivera RBC 4.34 106/ul Normal 4.20-5.40 [facility] Comment on above: Performed By: #### C BC ####[facility] [address] [place], [place] [address]Tz. Hardeep Rivera WBC 6.5 103/ul Normal 4.0-11.0 [facility] Comment on above: Performed By: #### C BC ####[facility] [address] [place], [place] [address]Fo. Hardeep Rivera CT ABD/PELVIS WO CONon 08-04 [...] HARDING Date: 2022-08-04 20:12 Normal [facility] Covid-19 PCR (CVDTB)on SARS-CoV-2 (COVID-19) RNA ULICES+probe Ql (Unsp spec) Not detected Normal NOT DETECTED [facility] Comment on above: Result Comment: When [...] for this test is supported by the Codifier of Health and Human Service's declaration that [...] longer be used). Performed By: #### [facility] ####[facility] [address] [address]Dr. Hardeep Rivera ER URINE PROFILEon 2 Bilirubin Ql (U) Negative Normal NEGATIVE [facility] Comment on above: Performed By: #### E RUR #### [facility] [address] [place] [address] Dr. Hardeep Rivera Clarity (U) CLEAR Normal CLEAR [facility] Comment on above: Performed By: #### E RUR #### [facility] [address] [place] [address] Dr. Hardeep Rivera Color (U) LT. YELLOW Normal YELLOW [facility] Comment on above: Performed By: #### E RUR #### [facility] [address] [place] [address] Dr. Hardeep Rivera ERUCELESTED A micrscopic examina tion will be performed if indicated. Normal [facility] Comment on above: Performed By: #### E RUR #### [facility] [address] [place] [address] Dr. Hardeep Rivera Glucose Ql (U) Negative Normal NEGATIVE [facility] Comment on above: Performed By: #### E RUR #### [facility] [address] [place] [address] Dr. Hardeep Rivera Hemoglobin Ql (U) Negative Normal NEGATIVE [facility] Comment on above: Performed By: #### E RUR #### [facility] [address] [place] [address] Dr. Hardeep Rivera Ketones Ql (U) Negative Normal NEGATIVE [facility] Comment on above: Performed By: #### E RUR #### [facility] [address] [place] [address] Dr. Hardeep Rivera LEUKOCYTES Negative Normal NEGATIVE [facility] Comment on above: Performed By: #### E RUR #### [facility] [address] [place] [address] Dr. Hardeep Rivera Nitrite Ql (U) Negative Normal NEGATIVE [facility] Comment on above: Performed By: #### E RUR #### [facility] [address] [place] [address] Dr. Hardeep Rivera pH (U) 7.0 [pH] Normal 5-9 [facility] Comment on above: Performed By: #### E RUR #### [facility] [address] [place] [address] Dr. Hardeep Rivera SPEC GRAVITY <=1.005 Abnormal 1.005-<=1.0 25 [facility] Comment on above: Performed By: #### E RUR #### [facility] [address] [place] [address] Dr. Hardeep Rivera UA PROTEIN Negative Normal NEGATIVE/ TRACE [facility] Comment on above: Performed By: #### E RUR #### [facility] [address] [place] [address] Dr. Hardeep Rivera UR MICRO IND NOT INDICATED Normal [facility] Comment on above: Performed By: #### E RUR #### [facility] [address] [place] [address] Dr. Hardeep Rivera Urobilinogen Qn (U) 0.2 {Kevon'U}/dL Normal 0.2 - 1. 0 [facility] Comment on above: Performed By: #### E RUR #### [facility] [facility] [address] [place] [address] Dr. Hardeep Rivera LIPASEon 08-04-2022 Lipase [Catalytic activity/Vol] 1486.0 U/L Critically high 73.0-393.0 [facility] Comment on above: Performed By: #### C MP, LIPA, BRITTNEY ####[facility] [address] [address]Dr. Hardeep Rivera PROF 14(COMP METB)on 022 Albumin [Mass/Vol] 3.6 g/dL Normal 3.4-5.0 [facility] Comment on above: Performed By: #### C ABAD MORE AMY ####[facility] [address] [address]Dr. Hardeep Rivera Albumin/Globulin [Mass ratio] 1.3 {ratio} Normal [facility] Comment on above: Performed By: #### C ABAD MORE, BRITTNEY ####[facility] [address] [place], [place] [address]Dr. Hardeep Rivera ALP [Catalytic activity/Vol] 171 U/L Critically high 46-116 [facility] Comment on above: Performed By: #### C ABAD MORE AMY ####[facility] [address] [place], [place] [address]Dr. Preethiarabella Rivera ALT [Catalytic activity/Vol] 35 U/L Normal 14-59 [facility] Comment on above: Performed By: #### C ABAD MORE BRITTNEY ####[facility] [address] [place], [place] [address]Dr. Hardeep Rivera Anion gap [Moles/Vol] 11.4 mmol/L Normal [facility] Comment on above: Performed By: #### C ABAD MORE AMY ####[facility] [address] [place], [place] [address]Dr. Preethiarabella Rivera AST [Catalytic activity/Vol] 28 U/L Normal 15-37 [facility] Comment on above: Performed By: #### C ABAD MORE, BRITTNEY ####[facility] [address] [place], [place] [address]Dr. Hardeep Rivera Bilirubin [Mass/Vol] 0.7 mg/dL Normal 0.2-1.0 [facility] Comment on above: Performed By: #### C ABAD MORE, BRITTNEY ####[facility] [address] [place], [place] [address]Dr. Hardeep Rivera Calcium [Mass/Vol] 8.4 mg/dL Critically low 8.5-10.1 [facility] Comment on above: Performed By: #### C MP, LIPA, BRITTNEY ####[facility] [address] [address]Dr. Hardeep Rivera Chloride [Moles/Vol] 100 mmol/L Normal 98-107 [facility] Comment on above: Performed By: #### C MP, LIPA, BRITTNEY ####[facility] [address] [address]Dr. Hardeep Rivera CO2 [Moles/Vol] 25.6 mmol/L Normal 21.0-32.0 [facility] Comment on above: Performed By: #### C MP, LIPA, BRITTNEY ####[facility] [address] [address]Dr. Hardeep Rivera Creatinine [Mass/Vol] 1.33 mg/dL Critically high 0.55-1.02 [facility] Comment on above: Performed By: #### C MP, LIPA, BRITTNEY ####[facility] [address] [place], [place] [address]Dr. Hardeep Rivera EGFR-AF FINNISH 47 mL/min/1.73m2 Critically low >=60 [facility] Comment on above: Performed By: #### C MP, LIPA, BRITTNEY ####[facility] [address] [place], [place] [address]Dr. Hardeep Rivera EGFR-NON AF FINNISH 39 mL/min/1.73m2 Critically low >=60 [facility] Comment on above: Performed By: #### C MP, LIPA, BRITTNEY ####[facility] [address] [place], [place] [address]Dr. Hardeep Rivera Globulin (S) [Mass/Vol] 2.7 g/dL Normal [facility] Comment on above: Performed By: #### C MP, LIPA, BRITTNEY ####[facility] [address] [place], [place] [address]Dr. Hardeep Rivera Glucose [Mass/Vol] 108 mg/dL Critically high 74-106 [facility] Comment on above: Performed By: #### C MP, LIPA, BRITTNEY ####[facility] [address] [place], [place] [address]Dr. Hardeep Rivera Potassium [Moles/Vol] 4.0 mmol/L Normal 3.5-5.1 [facility] Comment on above: Performed By: #### C ABAD MORE AMY ####[facility] [address] [address]Dr. Hardeep Rivera Protein [Mass/Vol] 6.3 g/dL Critically low 6.4-8.2 [facility] Comment on above: Performed By: #### C ABAD MORE AMY ####[facility] [address] [address]Dr. Hardeep Rivera Sodium [Moles/Vol] 133 mmol/L Critically low 136-145 [facility] Comment on above: Performed By: #### C ABAD MORE AMY ####[facility] [address] [address]Dr. Hardeep Rivera Urea nitrogen [Mass/Vol] 23.0 mg/dL Critically high 7.0-18.0 [facility] Comment on above: Performed By: #### C ABAD MORE AMY ####[facility] [address] [address]Dr. Hardeep Rivera Urea nitrogen/Creatinine [Mass ratio] 17.3 mg/mg Normal [facility] Comment on above: Performed By: #### C ABAD MORE AMY ####[facility] [address] [address]DrLaura Rivera Pre-Certification Formon Pre-Certification Form [id number]:12 7 Normal [facility] BOX TEST SENT OUTon 08-02-20 22 SENT TO REF LAB 08/02/2022 Normal [facility] Comment on above: Performed By: #### E KATHRIN #### [facility] [address] [address] [address] Hardeep Rivera CBC AUTO DIFFon 08-02-2022 BASO # 0.0 103/ul Normal 0.0-0.1 [facility] Comment on above: Performed By: #### RANDALL OLSON #### [facility] [address] [place] [address] Dr. Hardeep Rivera Basophils/100 WBC (Bld) 0.3 % Normal 0.2-2.0 [facility] Comment on above: Performed By: #### Deedee PINON UMICRO #### [facility] [address] [place] [address] Dr. Hardeep Rivera EO # 0.1 103/ul Normal 0.0-0.7 [facility] Comment on above: Performed By: #### Deedee PINON UMICRO #### [facility] [address] [place] [address] Dr. Hardeep Rivera Eosinophils/100 WBC (Bld) 1.4 % Normal 0.9-7.0 [facility] Comment on above: Performed By: #### AKSHAT OLSONICRO #### [facility] [address] [place] [address] Dr. Hardeep Rivera Erythrocyte distribution width (RBC) [Ratio] 12.2 % Normal 11.0-15.0 [facility] Comment on above: Performed By: #### HARI OLSONRO #### [facility] [address] [place] [address] Dr. Hardeep Rivera Hematocrit (Bld) [Volume fraction] 41.2 % Normal 36.0-48.0 [facility] Comment on above: Performed By: #### HARI OLSONRO #### [facility] [address] [place] [address] Dr. Hardeep Rivera Hemoglobin (Bld) [Mass/Vol] 13.6 g/dL Normal 12.0-16.0 [facility] Comment on above: Performed By: #### Deedee PINON UMICRO #### [facility] [address] [place] [address] Dr. Hardeep Rivera IG # 0.02 10e3/ul Normal 0.00-0.03 [facility] Comment on above: Performed By: #### Deedee PINON UMICRO #### [facility] [address] [place] [address] Dr. Hardeep Rivera IG % 0.3 % Normal 0.0-0.5 [facility] Comment on above: Performed By: #### RANDALL OLSON #### [facility] [address] [place] [address] Dr. Hardeep Rivera LYMPH # 0.6 103/ul Critically low 1.2-3.8 [facility] Comment on above: Performed By: #### HARI OLSONRO #### [facility] [address] [place] [address] Dr. Hardeep Rivera Lymphocytes/100 WBC (Bld) 8.9 % Critically low 20.5-60.0 [facility] Comment on above: Performed By: #### HARI OLSONRO #### [facility] [address] [place] [address] Dr. Hardeep Rivera MANUAL DIFF REQ NO Normal [facility] Comment on above: Performed By: #### HARI OLSONRO #### [facility] [address] [place] [address] Dr. Hardeep Rivera MCH (RBC) [Entitic mass] 29.6 pg Normal 26.7-34.0 [facility] Comment on above: Performed By: #### HARI OLSONRO #### [facility] [address] [place] [address] Dr. Hardeep Rivera MCHC (RBC) [Mass/Vol] 33.0 g/dL Normal 29.9-35.2 [facility] Comment on above: Performed By: #### HARI OLSONRO #### [facility] [address] [place] [address] Dr. Hardeep Rivera MCV (RBC) [Entitic vol] 89.8 fL Normal 81.0-99.0 [facility] Comment on above: Performed By: #### HARI OLSONRO #### [facility] [address] [place] [address] Dr. Hardeep Rivera MONO # 0.7 103/ul Normal 0.3-0.8 [facility] Comment on above: Performed By: #### HARI OLSONRO #### [facility] [address] [address] [address] Hardeep Rivera Monocytes/100 WBC (Bld) 11.6 % Normal 1.7-12.0 [facility] Comment on above: Performed By: #### AKSHAT OLSONICRO #### [facility] [address] [place] [address] Dr. Hardeep Rivera NEUT # 5.0 103/ul Normal 1.4-6.5 [facility] Comment on above: Performed By: #### AKSHAT OLSONICRO #### [facility] [address] [place] [address] Dr. Hardeep Rivera Neutrophils/100 WBC (Bld) 77.5 % Critically high 43.0-75.0 [facility] Comment on above: Performed By: #### AKSHAT OLSONICRO #### [facility] [address] [place] [address] Dr. Hardeep Rivera Platelet mean volume (Bld) [Entitic vol] 9.4 fL Critically low 9.5-13.5 [facility] Comment on above: Performed By: #### AKSHAT OLSONICRO #### [facility] [address] [place] [address] Dr. Hardeep Rivera PLT 200 103/ul Normal 150-450 [facility] Comment on above: Performed By: #### AKSHAT OLSONICRO #### [facility] [address] [place] [address] Dr. Hardeep Rivera RBC 4.59 106/ul Normal 4.20-5.40 [facility] Comment on above: Performed By: #### AKSHAT OLSONICRO #### [facility] [address] [place] [address] Dr. Hardeep Rivera WBC 6.4 103/ul Normal 4.0-11.0 [facility] Comment on above: Performed By: #### AKSHAT OLSONICRO #### [facility] [address] [place] [address] Dr. Hardeep Clark 08-02-2022 CNPN Telephone (CARD CHF [facility]) -- SYLVIA HERRERA ([id number]) 1945 F Date Time Provider Department 08/02/22 LOIDA MATHIAS [facility] During your visit today, we recorded the following information about you: Linden Rolandkarenyolasherita 08/02/2022 1:42 PM Signed Patient had labs [...] will be transferring her care. Loida Mathias APRN.ODETTE August 07, 2022 10:27 AM Allergies As of Date: 08/02/2022 Noted Allergy Reaction PERCOCET (OXYCODONE-ACETAMINOPHEN)0 05/18/2014 8 - GI Upset PHENERGAN (PROMETHAZINE HCL) [...] mg by mouth three times daily. 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 Hardeep Rivera Calcium [Mass/Vol] 8.6 mg/dL Normal 8.5-10.1 [facility] Comment on above: Performed By: #### E RUR, UMICRO #### [facility] [address] [address] [address] Hardeep Rivera Chloride [Moles/Vol] 98 mmol/L Normal 98-107 [facility] Comment on above: Performed By: #### E RUR, UMICRO #### [facility] [address] [place] [address] Dr. Hardeep Rivera CO2 [Moles/Vol] 27.7 mmol/L Normal 21.0-32.0 [facility] Comment on above: Performed By: #### E COLLINSR UMICRO #### [facility] [address] [address] [address] Hardeep Rivera Creatinine [Mass/Vol] 1.42 mg/dL Critically high 0.55-1.02 [facility] Comment on above: Performed By: #### E RUR, UMICRO #### [facility] [address] [address] [address] Hardeep Rivera EGFR-AF FINNISH 43 mL/min/1.73m2 Critically low >=60 [facility] Comment on above: Performed By: #### E RUR, UMICRO #### [facility] [address] [address] [address] Hardeep Rivera EGFR-NON AF FINNISH 36 mL/min/1.73m2 Critically low >=60 [facility] Comment on above: Performed By: #### E RUR, UMICRO #### [facility] [address] [address] [address] Hardeep Rivera Glucose [Mass/Vol] 119 mg/dL Critically high 74-106 T [facility] Comment on above: Performed By: #### RANDALL OLSON #### [facility] [address] [place] [address] Dr. Hardeep Rivera Potassium [Moles/Vol] 3.9 mmol/L Normal 3.5-5.1 [facility] Comment on above: Performed By: #### RANDALL OLSON #### [facility] [address] [place] [address] Dr. Hardeep Rivera Sodium [Moles/Vol] 134 mmol/L Critically low 136-145 [facility] Comment on above: Performed By: #### RANDALL OLSON #### [facility] [address] [place] [address] Dr. Hardeep Rivera Urea nitrogen [Mass/Vol] 21.0 mg/dL Critically high 7.0-18.0 [facility] Comment on above: Performed By: #### RANDALL OLSON #### [facility] [address] [place] [address] Dr. Hardeep Rivera Urea nitrogen/Creatinine [Mass ratio] 14.8 mg/mg Normal [facility] Comment on above: Performed By: #### RANDALL OLSON #### [facility] [address] [place] [address] Dr. Hardeep Rivera Tacrolimus Bld-[facility] 2021 Tacrolimus (Bld) [Mass/Vol] 4.7 ng/mL Low 5.0-20.0 [facility] Comment on above: Order Comment: Speci [...] situation. Test performed by chemiluminescent immunoassay using [employer]. Performed By: #### 1 1253-2 ####[facility] LABCLIA [id number] [place] [address] [place] Giardia, Direct, EIAon 07-23 G. lamblia Ag IA Ql (Stl) Negative Invalid Interpretation Code Negative [facility] Comment on above: Result Comment: Perf ormed at: [address] [id number] PhD Sommer Davis Performed By: #### 4 [id number], [id number] ####[facility] [address] [place] [address] O & P EXAM, ROUTINE, REFLEXo n 07-23-2022 Ova and parasites identified Concentration Nom (Stl) Comment Invalid Interpretation Code [facility] Comment on above: Result Comment: No o va, cysts, or parasites seen. One negative specimen does not rule out the possibility of a parasitic infection. Performed at: [address] [id number] PhD Sommer Davis Performed By: #### 4 [id number] ####[id number] [place] [address] O & P Exam, Routineon 2021 Ova and parasites identified LM Nom (Unsp spec) Final report Invalid Interpretation Code [facility] Comment on above: Result Comment: Thes e results were obtained using wet preparation(s) and trichrome stained smear. This test does not include testing for Cryptosporidium parvum, Cyclospora, or Microsporidia. Performed at: [address] [id number] PhD Sommer Davis Performed By: #### 4 [id number], [id number] ####[facility] [address] [place] [address] Consent for Procedure/Surger yon 07-19-2022 Consent for Procedure/Surgery [id number]:12 7 Normal [facility] CMV IgMon 07-18-2022 CMV IgM IA Qn <30.0 Invalid Interpretation Code 0.0-29.9 [facility] Comment on above: Result Comment: Nega tive <30.0 Equivocal 30.0 - 34.9 Positive >34.9 A positive result is generally indicative of acute infection, reactivation or persistent IgM production. Performed at: [address] [id number] PhD Sommer Davis Performed By: #### 1 [id number] ####[facility] [address] [place] [address] Coding Summary.on 07-18-2022 Coding Summary. CD:[id number] Gh0bWw +PGhlYWQ+CM4ZRHGyK01gxTJoj L7DA2sMRR9KXBRAIHCBVW4XTZ0 gnER5ZGtqA8OlkcJj EsmmsHVtOL81OJz7SHR1kZnrBZ ajxY9dwVOxW8g5BcCqMC31tC48 DUwkNQCwKyW2OrRsjnsyjHLu K2crFaRtmQXoZrc+PHRhYmxlIH hiKMXdTTfbPFBcFkIzcAmkHS4l Ag1sSAYvJQXgdNgdaGFnEmCj q2vfVSNtLWzkHN3jwSxiA5RroW O6ZZDkd4m6Pl42aJK+PHRkIHN0 gMwzHMkwf895JqEck1kqLDB7 kFXjSQuoXRO0C95by7K0UQEtHQ ZmIOI2hZL5yY1wbDiaillyI5Jt kZUdIuQ2YSV4tHKulB6ztEox dejakL0oHys+K73DQJ5DJVEGFN 1JMmb6U9SdXfcmsUN+XU11ZQMr XT20wYHsdPIym4zjmXs8XaVd MCTlJUG9vLluPFdnp5KsJWZhL8 6ifXBnh0P6MSTdjHclhGFoDyUt hHG7vT9sYCsrtxmcz8guskyg Sjims8fsub66cI18A67bARimJO QrSAK2OUMxUCSahYosdt2gvD9k Ii8+RHepp3zlu3ndtBs7XdMl WRLgemNdhKagMTY7q1CvIf57B5 DwgSpzz5YkLrs8fa49cGOpc3Y2 tEO7DFfzFKJeuU5gIDyoWhR7 CPHlWhEktO42wHEzLTdtEt9kdD xslOleDD5gOHPnshiiOFSmsM5v FNZfwBJxfOlxMV0eSKCbcmmu e273QgLmQQC0JVXgsFHlU2ImpC 7oUsYtLQZsIUMdT6MsyTDdHSlj P460MEblBwN5FNJvqkKkA4Xs MFSkwAsaNnH7x0T1Iw3Jx5Phqo acKBC8LWwjEBT8CpO0PkAqSmE1 C9KjXht4HRSfaWkwCY9sS8Pp KPDuayldchefrOW7LJFuFQZeoY 39uUJuSSubWz9we6J7u066KFKg BHLxbL42Gc7kpSxiDWLhkOCB fY1pbukgk7famdumXpHhSGJdGU q8MZv9HNAsqYenGcMhMIX1WzU6 LVV0iSXdjP7umKqbhyteyY6j Oyc+V71gzB7zIMC3CIC7qzdsFI KasaDxRB76TE28Z8UtCavicDJi bGU+DWRhqyKnmNuqTS3iYnEf f4mht5OjCEnsC1InWPBmIFzxQw k1JJEhJEU3tCL7xA5aVBKuVLss c0M8cUQ2Q4NcxdJord9dg1vn JPVqGZayH97vbFVla1D9ZLIuyD R3PZUvyVkmUhOyjZ18Okd+PGNv tAfuj3PmMqckc2yjp5nozIi8 UbJzZJHgfqNrbLvmFOH2j2LrRr 98V62sJDkwCNQsHRPwAMCdAQMy uCyffz4sjH9aKg7+PGNvbCB3 sHG7dC6vUKDwHhT9SXyxX406Tt SpsKQdApfmk0aeo9bqwQw8DsVw FEJgkhBhdLwoEAZ1p7JaGx42 G32fKFlxHHNzWFThPAUqHIIxgP waun2zbQ7dVb9+YR6pk6jaup71 nV40fCS+OZVdJOK2vMazDQys MNHpjV3nAZlsSiH3KNOrJbVrmZ 09lSTlJQtaGt3kuEtyiSedTP8b OKNsekkpa928PyFwx7czMHXk qHLiNFakSWU8D76jq6L0KBHbJC CcHOE0jZE8nS0kbPuajwelvNNg qQidwjWmtXniJMbeKPgjV853 IHRvcDsnPlBhdGllbnQgTmFtZT u9A1KgLmw0LGFuqWwyMK8fgDCb XLraSb3ntCxitKgvOV4wNIPm yyltr950QvYmh4bjSOZoqUCuBV feXMW3S33hy1K0EHVtKFJaIRA4 ySA8qS1frVsspiqlxKCsaVez rmFrpKkrRVclMGeyL802CYAfkE wkHnWtdqUcCKEclQX6WA95XH06 cBMat6C9nSI1M4CeRAEdmpcy nsqwlDQ8YLFtEGNwoJ02Qx4toG yvRw4kRJFxRKZ4MGElkVRvP5Ye pJ6hLcQtOCLmCKShA9UjkFDp KDllP660WJufWqH9ACBqwkGzN7 NhQZLebHypCxX1r0Q2Ut1QI3Q1 IE06NV57vCCeo6U6tBF0R1Jj HZRfzbzdbcvgyNE4XVTeLDOabJ 29Aj1uxGjrTx3nREVxIQK2MUSv rYOqK0ZkdE3cQaMlQCYyWYFa D1NzrBXwQBndV370CVgoPnA1SX EotvZwJ4LwVWZleUtkTmF7q2I0 Nm9RUAi2JM15CM56nQRza0H8 oJB0J4IdDRUliszoqvxkoET1SS MkEPXhuW15Na1wqRoxQr8cZCVs EYK2HDLgqNCmC9XlmV3bEiKh CPSmEPMsB5IxbQAwTOrhK714YB fjYrO9VNMpyjVoH6CqZNLpjOtg SvH0v1N9Hf1QMTXpFW83LPJ8 aRK3UZ44SB23D4GyOhmayBAsfV U+PHRhYmxlIHdpZHRoPScxMDAl UjFzbPtjRJ4mIt3kWVCkFUEn sKomfGUeOpYci5cdJZSxLMrcTT 8quJqmY8UffBK1XRSpy0w2Kn39 D62lP5KqkAT+GLHwyDE6aBD3 aG7gUxNyJzB4YBoxZ394DhAclY MmAruqp5mnt5wqaRr1KbA7CQIz okSewXycJKN5c8BcBl03B20j IHdpZHRoPSIxNSUiIHZhbGlnbj 4gfV4vEg2+ALOwtMS8rIQ9cM7e TuWhQkZ3OEucO035FzEfjUFv Nqeuo4feu4sbaUq9DqUlLBPmkm YknOjcPSL5h0WoRa08T8DkmQoa g3PtPbe9rb98fSKob7I9kYM8 Y6ZpYVBgibileCJpuBrgWK0qMS EpbwslYWNcyJ5dWLRkP4q5KiAp ZgJ2JIdxJ9AunfN3WCZiqCXj LBxkXIJ5L01xr2H9VCBjGNEaYW G5sOR8vS2mnPmqcbvvbKAglIkn liMcpOfxZSfmVPdhT476GWCy oKhrXTSqvF3wVVApzTYubErsGG 4wNTBpbjsnPlBFTkNFLCBISUxE XAQCON65MJ36nXFag1S4sMW2 T6LrNLPvpxkjvgkwrBW9UFSoKA GvoY49sYQxLCjrVo3dl4U2y941 NIFiQGCjhA28Gk0amOwmQGOj vUUOtW1yggewh5geelsvAeKyKL MtGZy0AKd6XWInvXaxPzDhMFP6 ElI9WII1zYGhbY0cuKrtjohn zA7pOfj+UDUoRnLuIYd1TQzweM Q+NWYbKGQ4lVojSSvyDQPtuE7x LPUnE6k7MxAvAmW6GNrtY3Et IOUhrskqUs04wP8fTbQvRhT5AM hfM6HbxcT3TVIrjTGgJGxlKBL5 A06cv4C6CCYkLWNmUEC6vBG7 dL0xyWqyeilzlIMtzOxnwmXtcN rpPXwcJZwmZ563URQpiLwjOos4 HWncBIUwSJ95JY37fSRuz5P7 tOM8I7GzRXOrolygqhmueFC0JK AqCJNbkO64pJYoBZagMj1tv8Z9 d927DWOjJGVfhU72Nk5chXhq MSXcpFZTuQ8yogzzr4ixxokyWo PcOIPnNJh4QHe0OGXbpPfzAfUm XKL0JbH9HON4tLCqqS8lcUzb hguefL4dTgl+ZrWqVWnxRH49BB 86rORrm8N2eGT7V2QwKFEshlqy nqfuxCU7JIPvWOJsfK91sTUh GKopBq4qv0D2o744QKQbCWGqoB 97Pj1jxHwoRIKfrXWYmR3uuegi w2afoahhHfKvBNJmUFw6SRa7 QBUdgUikPlTjIGQ7RzA9DFQ0eI ZimV9qnEvrfciowV6pYgm+T3V0 tTQ1vKNvcHnvwLR+QQ66aj72 K8MsCbxwNoc7GJXsNMC3sGY5sZ 5iPETlWTtic6P5eQM8O9ImhbRe qz0nn7otSCQuXDznO00rhXCn d2M5NYEkfPV5JBIhxZszAaSfrT 93Oyc+TFVaeVbvi6PcZvqqx4sz b4pekAa3CiVwVXAdhoSayDyx WES7o5TzXh75J40zJSdyDSRdTT SqGJQeSIEcuYjugo4jgF8jZl1+ ENFeyIO6eJP9gO5nOhLqJeP7 ZNsdC990FsEzjBRcBrvyi9gkd3 bvxOf5EqLgXSZfhlYwbHomZGS3 o2MeYm32T2ZskCdma0ItUqp2 kw45oGBcv1O0lQJ2S2YsFJZckf lyjLKzsDhcUR5eECVmujhfVNSa cC8sVSMqT3g4LdByQvM3HVmd S4RlbqV0LGCukJKmATQasTFFuT 2bfscqi7vpfzzpLuBwBJQbRCu6 OBa9JZMcwPhyQvGzQTO9AxB8 QWI9zPDtbZ8roDzqnvallV5xRv c+XUc0b7knwXNwMC9mhUH1SK97 BM00pVWtj1H2lGF5A4HdGSXc xxonfadhdPJ9TLFvLLPlzA91Ol 7wzCluLf4rMEJkGYB8CAQcuEIp G3PryJ7pTeLhWKGjFHMtL4Zc wJKpQHkvY188MPlnDoI6CVZlut GoY3AkMULfvIidPoC9v5G4Hx8K XU24HH49GT96mUYde2Z0kZL4 Q3NvPYZtcjehlvecdSE5AIOyPA AadL61Pv4bnKdnQe2lCGIyUGI1 JHQlpURhW7InwH9rVjPwJPSt EQQgP8CprWNdRYszM014CAerUc V6WMSqqxOlV8HxLSUcmPrtYgG7 x5K9Tu8OQi86MO70RM70jYVx x5R8oHT1J9MvBUAqzruaejphzZ L4HGBxZYXyuU02Vv0csKdnTz6f NHFuTIV8MNNfqFCwZ1DyiF0l EkKvUBVxAHSwH2ZwaVNrVWycQ7 57LHxyCgO4UMYuylSeF1IuRHGh pLepKfM7c4W8Tv1RZOhxbbz7 Q0IeCvtnuWC+ID23IDIlGF95qA KlbEUar3jfhLd2TzSrOCGpZLU7 rXlaTHvhx5NyKITdJ62fnRRu c2U6 (more content not included)... Normal [facility] Coding Summary. CD:[id number] Gh0bWw +PGhlYWQ+VE3FTGByK55nfGXft Z5UH3uALS8BQZPCTAHANR2EFO1 bxNH8YTwhZ0KdasYk SzoayDCkQU43UVj1YLU9wQeiGU khqR9nqSHfA8h7NzMuMD39aN85 JVhrIYSyHgF3KmFwicostUTu K3nkEeFwoPKcDqf+PHRhYmxlIH jdCIXeCPtlDWYmAgHqbTnjEJ2m Oq2oJDSqZRNflJjokWVnTeLl b8euPYAtJAvgQM1lnUywQ4ZmoK W2JWGcz6n5Aa53uOA+PHRkIHN0 tHoiNZswb242WmPxe3peNLW8 dXDrPSomAOS2G27mn8A5JYGhXL BsDMI0rVP8rB4cdVtqovdjA7En xHLySgT9JSL1lPLykL7voIli twlklS7hNcp+F14ICW6BUHIGIW 0ISsm1L7ZxUknwlET+CY44XYJt PX93cXGrvQRqo6ajxMq1TnRs HGDoZFP9jLtnMYgud8ZlKPMjE7 3ftDUdt5D0VNZkgBxmwSEpAlHi pCH2eN4rPCawujwnn3sarlds Wbpmk4axep48nH86M03tSAagCG UvUZH8ESScGCQudMrgki4ftM6f Ii8+QLhsb9kon1umbYl5SdFf PRTbzjJttTpmWMT5u1XqRn48W3 EreUhzm8AjYoo0xc35pFIzk0F5 zPN4SPuqYGWzpG0xGLspHtU1 PBHiZnZmxW28xFXpXSztKg7onA psvNecTE6sAQDkhpunPCJukP7b SZJftLYdmLsfIW7rLKQcbmvs n288SwZkLHD0DOGhwICvP1RcaC 7lKxInJRXsGXZrI9ErnQMjJOio R258BPxqMkP8UITigcTrY3Gr LWMeyIjaXzU1u3L4Nt1Wq4Xljt fnOTB6BNetTAW8LjM5OtIaKqT1 S4ZmDbi4ODXxsXfmWA9cH5Eu KLQctngrmzxrlSE4NNAnZLIegY 98jIHvNRjzDi1on3E7p301LYVc XSSyzV46Hh4baTcoNUVbwHBD yP4eafdda9yzrucaZrIiKYHbAE v6AKf5CEFcnNajEnDcBQH0ZpM1 HCG0mKFvuS1oyVrfburtgE1w Oyc+Q98adS7gLFB1XCP9qecsTC SojeZaXC13DT83O9PnDlentFXu bGU+SEKrjvQvrCyuSE7rViKr c0vji1WtZNnbI8RcKJEuDRdiOv p2ISPrSHK1bDF0oW2eBGKdRPcv i5D6mGK8D8TtnmCbnr2hp6qs ZVWqKLdcB24qjDSna1U0XOSdtZ N2DCPsqIfeYtMrxU58Qya+PGNv rSybv0YqCmjjc0lgj3jhbFb9 VxSvIWLwgtBnqGwpQLY9c5RpHz 88P74sSBshZMNiRODrKPEtYTYy qHilyq4huU9qPu7+PGNvbCB3 tTD5tB5dPCKyTqY1ZIvrC393Ej VxzQYaWddaz7nhi0bcqWt8CvZq MADfpwRbrBwzJTA0c3RhIp28 Q86oRChuWBDgTXTxTFSzFQGhzA pkiw9jnQ0yIk5+SC0jq9hxww73 lI59dOS+NONdTCD5pJslJYme XKQvuL6nURpnGmQ1ITDpOzMbaD 37yNTfHRcuWm2tmAmgcFmsBT0x AVLbqeinr903OaFbn5zbIFIo mNMoRXlrBDC1F89ls3D6HKZqQR LrSDD3oCG0vR1azAmsqrrpzVQu zMytimHntHfyLPpcCLllX021 IHRvcDsnPlBhdGllbnQgTmFtZT k1P4MgAdy3GNYrpArzRO7isIMy EKvnRx9ihRwnfGekTQ7eBWOg hhobw622PtFjt8svKGIckXYtIH soEHB4D69cc0Z5VVOiJYVcHAR0 vTT8tL2zfJbkgtsgvCXweWwh evFkwKgfXWwzFMwlW469PWHehI vhQaDtkpZgJAEsbCE7UD30GD15 vBJla3P3vPK8V5AdIOUzdirg pzfusQO4XNOrFITvcH22Tf5yxW jcMu4xBTByJNQ2AEEaxKNjD6Xu pE8xZaUoCYMaKQOvR3GujTDf MGaaR529NWyzFyS7BNHxbnPpJ9 HbFIDsmUntGvV8z6R4Rt2BH9U5 EQ52AN62uUKuw7S0iWI8R6Mt CUMrrmxybkvqgNZ6UQRqNGGabO 21Dd0lzCkyXq8oZIZuXSX2WLPg rDUwL8StqQ0nOeDaVPMfZQGa Q9IjuOZeCAdoU092VIifIlA9NN VlmsMkI0EaYJVstXoqVyR5x8V6 Kb9JICg9LE42NK41wLNcr7Z2 cUP8J8RtKGDfrymsjauanTM1AO TqVNEynU27Rx4htGyjGk6iYYOk SWZ4VHAceNDiM1SuiS1yUzSb PFGoJHRvI9AnfYEoNRkbC251NV haOaF7DFTkbnPaM9GwIRJeeLmj RyY5k0Q8Rx9JWEMzMP36YZF5 zBT2NK18EB02Y3ZoGeetrEGphW U+PHRhYmxlIHdpZHRoPScxMDAl BqUztYruZR1zHs9nFKAsPOMz tJvfkTMkMsRmu2abYDMnUOygSV 4ogOiqZ4WwiKY9ZXKye4z1Rq70 T41dA6TrzSL+ABRhzQB6lEB3 rA9aIzJkQeC0CCpiV978HgOsvO RjNykfk7ury9epaYu4RlA4ILHo yjZbzHuhSFN1o1ZoJb31H10q IHdpZHRoPSIxNSUiIHZhbGlnbj 0uvE1fWt5+XHKyhMA2wIM9kC6p DxCmPpC9NBohI218ExOlbEGf Bzaun5srt7qnpLi1BkOjTPTqgh UaoUfcFYJ0r5GiKb69X4YtlOan b3WwQoi4it40pLBfn2N2dTP9 Y3XpGDZqdmncnXFqzFjaFV5mSB IbjkgwDAQjhL6vXTQaT5e2UaKq CwH8TWrcJ6OpedW1ONPepNEw UEptQBF0R13qp4R6GUOhIPWkDG V3vUU2rF8xeGqmzxiqlRYqyCcy mvQyoWovCWgoSSbtE507SZLt qQytFSQdcN3aDKCuvFVkvItoMP 4wNTBpbjsnPlBFTkNFLCBISUxE ZMYKYP74AP44zUCqo5O5tUN3 G0NaAEYtdcybaykubRS9YWJaWS PfvF34sXEwMTxuAg6kn7H9e977 IGAuGPZruS56Kd0syUogNNXa dJESiS7olgkah7dkibweAxDsLN HsUJb6PLl6CNDfoArvUnHtCEF0 SfS7ZZP3jWFuiP7vfTslmkkp pO8uBcj+PKOtRpJrGHz6KWfhiP Q+EWZzQCF7jJyxGVlxFIHhoC4d CHPkC5c7TiZvWyB0CPosD7Vy MYOnggdrRx87sV6tXzJjYnV7BB haX1FubyF8MSXenFXwHIkpLSX5 Z12bw6Y7VTGiMOByXJF5sLR1 vK2urIbskflpjCShyYoxxrHabS rtUHxqBDhsK142XESjlCfeAxz9 QSxhPTMdPE49QO71xKMjl1R8 wQM8S4DwPGCznolvrkgmdGR7CA YpNEOpkG08pGOhJRiqVl5bf4G3 j370QUSbHPPxqN34Dk1rmOew RUFvzZVEzP8uymvim2mcrlaiIa GnQFHfLCl6TBy9WPMlvLsaJiKs GEB1IoM5WHK7kPLurE8rmFjt dgdtjT8vVwz+MsTcQIgoIW23EA 68fMCwf6B5tQN8E0PrLIZjwmnw pkaugSZ6MWImGWRpuX05kOLv EBwfTz4ul5I7p694CPDhGRBgvR 27Cc9orBdfWAMzkOXYmY0qmmfo u8iwapukMlAaXJXtJIo6VKp3 UJWbbTcmQrXtQHZ1KiV4GFP9eX QtpS9wsXjqyoyezU3fVhl+TGFi RUZsh4Utj9XnXW48KZ02W8Ku PjwvdGFibGU+PHRhYmxlIHdpZH PpCZkbQQNvFvCifXzqIN4tAx0j TLSiGGArwFqvcOQgHjLdr3dd VCQwLJjvUJ4dbUzdR4CxdJE9ZL Ryw0l7Yq13P34wE1UxbCH+PGNv wBA4yMC4qB3rObJwXhR0TNyf Q033XcTadLNhDjsaj4uxw4wfvK k2EmGgLLHbegMjdKnuLAO5l8Hv Eq08F40tQGzkVXUbREJaECTu HXYiwVwuxk7clW5aFp7+PGNvbC X8wNR1eK7qDePmHdF2NXmsW385 QpAlgFQzFmaiM49oQ9ZlrMB+ HUYqWvm0FTUzjQphVM8krKHeZJ maDx0zQHF7XjRwMsYfNSzaI1Ab ECWdbmuhgotwrTT3VYUbJWSy eO86Lw2bkTonRj8yOORjFZC1ZP SlsVAdF3HvwC4gLdClVJReBWAh B0MuxRGfLQbeN452YOvmOuM3 XAIbapBdB9CmZYGtlVocPaN3d1 D0Yk8BxDymlTIoDS1qQeKbRBk6 O4BbBcj0SGZseKpiWC2bpLZp EDvrVj0esYfdwHluQR1wZMRlou zwr395UaSna6fkEVNnvYKeRUzy CQH9U06kf1D9MGSkAEIeALN3 oCN6sX1jvXffaivgoDQtfRyepw MzwXfrDSkeZJhyF140HPHhcNry XpNZCxv1K4FdLxv0KMKfmUjk MX8ahLXkCWulLr0ziGmxfSktOR 1qSVDmnzfsm634JrBte2kbOYPb gCUtLMapOCI5B33ml4J3XWVz RAAaVLU4qMO2sR8zuJhripwfqW OjiJtvzaKdaBtrHEftMVopH613 UXNwqErzTw9YWtn5L5ZaVqe1 OCRjzOioPG6hyBQrJRjqGx7dpG ttjRouBD5nPKDsvzuqt305JfQj x4qjUSWgnDUwUMxnIIS8L74r e5X9CURjGEEaXVP0hCA6vM6ahG lnbjogbGVmdDsgdmVydGljYWwt DXtiV997JCKdyJokRcXksERr OjwvdGQ+HF71gp90Z3DjSbkkLp f7BZPsDUS1rWZ1kR0iYLTlQWtl k6Z9wVQ3W1GownYaft1gf7il YXBz (more content not included)... Normal [facility] Enteric Panel by PCRon 07-18 C. coli+jejuni+upsalien sis DNA ULICES+non-probe Ql (Stl) Not detected Normal [facility] Comment on above: Result Comment: Test ing was performed utilizing reverse tabulating machine mechanic (RT), polymerase chain reaction (PCR), and array [...] nulcleic acid test. Performed By: #### 4 [id number], [id number], [id number], [id number], [id number], [id number] ####[facility] [address] [place] [address] E. coli stx1+stx2 genes ULICES+non-probe Ql (Stl) Negative Normal [facility] Comment on above: Performed By: #### 4 [id number], [id number], [id number], [id number], [id number], [id number] ####[facility] [address] [place] [address] Enteric Panel by PCR Negative Normal [facility] Enteric Panel Intrl QC Pass Normal [facility] Comment on above: Result Comment: Test ing was performed utilizing reverse tabulating machine mechanic (RT), polymerase chain reaction (PCR), and array [...] 1 and 2. Performed By: #### 4 [id number], [id number], [id number], [id number], [id number], [id number] ####[facility] [address] [place] [address] Norovirus genogroup I+II RNA ULICES+non-probe Ql (Stl) Detected Abnormal [facility] Comment on above: Result Comment: Resu lts Called To [facility] for Dr. Jama By [facility] And Read Back For Confirmation On 07/18/2022 08:49:23 EDT. Performed By: #### 4 [id number], [id number], [id number], [id number], [id number], [id number] ####[facility] [address] [place] [address] Rotavirus A RNA ULICES+non-probe Ql (Stl) Not detected Normal [facility] Comment on above: Performed By: #### 4 [id number], [id number], [id number], [id number], [id number], [id number] ####[facility] [address] [place] [address] S. enterica+bongori DNA ULICES+non-probe Ql (Stl) Not detected Normal [facility] Comment on above: Result Comment: This test result should be correlated with clinical presentations and medical history by a healthcare provider to determine its clinical significance. Performed By: #### 4 [id number], [id number], [id number], [id number], [id number], [id number] ####[facility] [address] [place] [address] Shigella species+EIEC invasion plasmid antigen H ipaH gene ULICES+non-probe Ql (Stl) Not detected Normal [facility] Comment on above: Performed By: #### 4 [id number], [id number], [id number], [id number], [id number], [id number] ####[facility] [address] [place] [address] V. cholerae+parahaemoly ticus+vulnificus DNA ULICES+non-probe Ql (Stl) Not detected Normal [facility] Comment on above: Performed By: #### 4 [id number], [id number], 83556691, [id number], [id number], [id number] ####[facility] [address] [place] [address] Y. enterocolitica DNA ULICES+non-probe Ql (Stl) Not detected Normal [facility] Comment on above: Performed By: #### 4 [id number], [id number], [id number], [id number], [id number], [id number] ####[facility] [address] [place] [address] C. diff by PCRon 07-17-2022 Clostridium difficile by PCR see comment Invalid Interpretation Code [facility] Comment on above: Result Comment: Unab [...] its clinical significance. Performed By: #### 4 [id number], [id number], [id number], [id number], [id number], [id number] ####[facility] [address] [place] [address] Fecal WBC Lactoferrinon 07-02 Fecal WBC Lactoferrin Positive Abnormal Negative [facility] Comment on above: Result Comment: The semi-quantitative detection of elevated levels of fecal lactoferrin is a marker for fecal leukocytes and an indication of intestinal inflammation. Performed By: #### 4 [id number], 13511065, 10401959, [id number], [id number], [id number] ####[facility] [address] [place] [address] Consent for Treatmenton 07-02 Consent for Treatment [id number]:127 Normal [facility] Gastroenterology Office/Clin ic Noteon 07-15-2022 Gastroenterology Office/Clinic Note Chief Complaint f/u ER- abd pain, diarrhea and vomiting HPI Staff This is a 76 year old female who presents today for a referral by Sue for abnormal radiology testing. Patient seen in [place] [facility] 01/2022 for complaints of diarrhea, abdominal pain and nausea.- CT and labs completed History of Present Illness Sylvia presents today for abdominal pain, diarrhea, and vomiting. She was recently seen in the [place] emergency room with abdominal pain, diarrhea, and vomiting. She notes that she had a heart transplant in [place] in 2017. Afterwards she experienced diarrhea which [...] She was prescribed Creon 24 mg at [facility] in 2017, due to being [...] rubs, murmurs or gallop. Peripheral: no edema Gastrointestinal/Abdomen: Abdomen: normal consistency and bowel sounds; no [...] had a recent CT scan at [facility] that showed a small lesion in [...] by h (more content not included)... Normal [facility] Comment on above: Result Comment: Elec [...] Pancreatic insufficiency Pancreatic lesion Valvular heart disease Normal [facility] Eduardo 07-05-2022 CNPN Telephone (CARD CHF ISACC) -- SYLVIA HERRERA ([id number]) 1945 F Date Time Provider Department 07/05/22 SHO CROWLEY [facility] During your visit today, we [...] care with another team. Sho Crowley APRN, LINESPERSON Pager: [phone] July 05, 2022 10:42 AM Post Heart Transplant Nurse Practitioner Allergies As of Date: 07/05/2022 Noted Allergy Reaction PERCOCET (OXYCODONE-ACETAMINOPHEN)0 05/18/2014 8 - GI Upset PHENERGAN (PROMETHAZINE HCL) [...] transplant. No Dr Caldera: Rfl: TACROLIMUS/FK-506 BL [[id number]] Order #: [id number] FUTURE Prescriptions as of 07/05/2022 - tacrolimus [...] mg by mouth three times daily. - ipxhum-rqvzxhyq-zqlwskj (CREON) 24,000-76,000 -120,000 unit cpDR Take 3 [...] 09/02/2019 A (more content not included)... Normal [facility] BOX TEST SENT OUTon 07-03-20 22 SENT TO REF LAB 07/03/2022 Normal [facility] Comment on above: Performed By: #### E RANDALL PINON #### [facility] [address] [place] [address] Dr. Hardeep Rivera CBC AUTO DIFFon 07-03-2022 BASO # 0.0 103/ul Normal 0.0-0.1 [facility] Comment on above: Performed By: #### C BC #### [facility] [address] [place] [address] Dr. Hardeep Rivera Basophils/100 WBC (Bld) 0.3 % Normal 0.2-2.0 [facility] Comment on above: Performed By: #### C BC #### [facility] [address] [place] [address] Dr. Hardeep Rivera EO # 0.1 103/ul Normal 0.0-0.7 [facility] Comment on above: Performed By: #### C BC #### [facility] [address] [place] [address] Dr. Hardeep Rivera Eosinophils/100 WBC (Bld) 0.9 % Normal 0.9-7.0 [facility] Comment on above: Performed By: #### C BC #### [facility] [address] [place] [address] Dr. Hardeep Rivera Erythrocyte distribution width (RBC) [Ratio] 12.2 % Normal 11.0-15.0 [facility] Comment on above: Performed By: #### C BC #### [facility] [address] [place] [address] Dr. Hardeep Rivera Hematocrit (Bld) [Volume fraction] 42.3 % Normal 36.0-48.0 [facility] Comment on above: Performed By: #### C BC #### [facility] [address] [place] [address] Dr. Hardeep Rivera Hemoglobin (Bld) [Mass/Vol] 14.0 g/dL Normal 12.0-16.0 [facility] Comment on above: Performed By: #### C BC #### [facility] [address] [place] [address] Dr. Hardeep Rivera IG # 0.04 10e3/ul Critically high 0.00-0.03 [facility] Comment on above: Performed By: #### C BC #### [facility] [address] [place] [address] Dr. Hardeep Rivera IG % 0.5 % Normal 0.0-0.5 [facility] Comment on above: Performed By: #### C BC #### [facility] [address] [place] [address] Dr. Hardeep Rivera LYMPH # 0.8 103/ul Critically low 1.2-3.8 [facility] Comment on above: Performed By: #### C BC #### [facility] [address] [place] [address] Dr. Hardeep Rivera Lymphocytes/100 WBC (Bld) 10.9 % Critically low 20.5-60.0 [facility] Comment on above: Performed By: #### C BC #### [facility] [address] [place] [address] Dr. Hardeep Rivera MANUAL DIFF REQ NO Normal [facility] Comment on above: Performed By: #### C BC #### [facility] [address] [place] [address] Dr. Hardeep Rivera MCH (RBC) [Entitic mass] 29.7 pg Normal 26.7-34.0 [facility] Comment on above: Performed By: #### C BC #### [facility] [address] [place] [address] Dr. Hardeep Rivera MCHC (RBC) [Mass/Vol] 33.1 g/dL Normal 29.9-35.2 [facility] Comment on above: Performed By: #### C BC #### [facility] [address] [place] [address] Dr. Hardeep Rivera MCV (RBC) [Entitic vol] 89.8 fL Normal 81.0-99.0 [facility] Comment on above: Performed By: #### C BC #### [facility] [address] [place] [address] Dr. Hardeep Rivera MONO # 0.9 103/ul Critically high 0.3-0.8 [facility] Comment on above: Performed By: #### C BC #### [facility] [address] [place] [address] Dr. Hardeep Rivera Monocytes/100 WBC (Bld) 11.1 % Normal 1.7-12.0 [facility] Comment on above: Performed By: #### C BC #### [facility] [address] [place] [address] Dr. Hardeep Rivera NEUT # 5.8 103/ul Normal 1.4-6.5 [facility] Comment on above: Performed By: #### C BC #### [facility] [address] [place] [address] Dr. Hardeep Rivera Neutrophils/100 WBC (Bld) 76.3 % Critically high 43.0-75.0 [facility] Comment on above: Performed By: #### C BC #### [facility] [address] [place] [address] Dr. Hardeep Rivera Platelet mean volume (Bld) [Entitic vol] 9.5 fL Normal 9.5-13.5 [facility] Comment on above: Performed By: #### C BC #### [facility] [address] [place] [address] Dr. Hardeep Rivera PLT 191 103/ul Normal 150-450 [facility] Comment on above: Performed By: #### C BC #### [facility] [address] [place] [address] Dr. Hardeep Rivera RBC 4.71 106/ul Normal 4.20-5.40 [facility] Comment on above: Performed By: #### C BC #### [facility] [address] [place] [address] Dr. Hardeep Rivera WBC 7.6 103/ul Normal 4.0-11.0 [facility] Comment on above: Performed By: #### C BC #### [facility] [address] [place] [address] Dr. Hardeep Clark 07-03-2022 ODETTEN Telephone ([facility]) -- SYLVIA HERRERA ([id number]) 1945 F Date Time Provider Department 07/03/22 SO[facility] During your visit today, we recorded the following information about you: Linden Weems 07/03/2022 1:02 PM Signed Patient had labs drawn 07/03/22, uploaded to [employer]. Allergies As of Date: 07/03/2022 Noted Allergy Reaction PERCOCET (OXYCODONE-ACETAMINOPHEN)0 05/18/2014 8 - GI Upset PHENERGAN (PROMETHAZINE HCL) [...] mg by mouth three times daily. - norgzw-hlcuvtoq-qhgigxz (CREON) 24,000-76,000 -120,000 unit cpDR Take 3 [...] Status:Closed by LINDEN WEEMS on 07/03/22 [facility] (BAS METB)on Anion gap [Moles/Vol] 12.9 mmol/L Normal [facility] Comment on above: Performed By: #### RANDALL OLSON #### [facility] [address] [place] [address] Dr. Hardeep Rivera Calcium [Mass/Vol] 9.0 mg/dL Normal 8.5-10.1 [facility] Comment on above: Performed By: #### RANDALL OLSON #### [facility] [address] [address] [address] Hardeep Rivera Chloride [Moles/Vol] 98 mmol/L Normal 98-107 [facility] Comment on above: Performed By: #### HARI OLSONRO #### [facility] [address] [address] [address] Hardeep Rivera CO2 [Moles/Vol] 28.1 mmol/L Normal 21.0-32.0 [facility] Comment on above: Performed By: #### Deedee PINON, UMICRO #### [facility] [address] [place] [address] Dr. Hardeep Rivera Creatinine [Mass/Vol] 1.64 mg/dL Critically high 0.55-1.02 [facility] Comment on above: Performed By: #### Deedee PINON UMICRO #### [facility] [address] [place] [address] Dr. Hardeep Rivera EGFR-AF FINNISH 37 mL/min/1.73m2 Critically low >=60 [facility] Comment on above: Performed By: #### Deedee PINON UMICRO #### [facility] [address] [place] [address] Dr. Hardeep Rivera EGFR-NON AF FINNISH 30 mL/min/1.73m2 Critically low >=60 [facility] Comment on above: Performed By: #### Deedee PINON UMICRO #### [facility] [address] [place] [address] Dr. Hardeep Rivera Glucose [Mass/Vol] 114 mg/dL Critically high 74-106 [facility] Comment on above: Performed By: #### Deedee PINON, UMICRO #### [facility] [address] [place] [address] Dr. Hardeep Rivera Potassium [Moles/Vol] 4.0 mmol/L Normal 3.5-5.1 [facility] Comment on above: Performed By: #### Deedee PINON, UMICRO #### [facility] [address] [place] [address] Dr. Hardeep Rivera Sodium [Moles/Vol] 135 mmol/L Critically low 136-145 [facility] Comment on above: Performed By: #### E RUR, UMICRO #### [facility] [address] [place], [place] [address] Dr. Hardeep Rivera Urea nitrogen [Mass/Vol] 24.0 mg/dL Critically high 7.0-18.0 [facility] Comment on above: Performed By: #### E RUR, UMICRO #### [facility] [address] [place], [place] [address] Dr. Hardeep Rivera Urea nitrogen/Creatinine [Mass ratio] 14.6 mg/mg Normal [facility] Comment on above: Performed By: #### E RUR, UMICRO #### [facility] [address] [place], [place] [address] Dr. Hardeep Rivera Tacrolimus Bld-ncon 2021 Tacrolimus (Bld) [Mass/Vol] 12.4 ng/mL Normal 5.0-20.0 [facility] Comment on above: Order Comment: Speci [...] Test performed by chemiluminescent immunoassay using [employer]. Performed By: #### 1 1253-2 ####[facility] LABCLIA [id number] [place] [address] [place] MG MAMM SCREEN 3D TRISHA CADon 05-28-2022 MG MAMM SCREEN 3D TRISHA CAD Patient: SYLVIA HERRERA Exam Date: 05/28/2022 : 1945 Gender:F Ordering : DR TAO ROONEY . Admission #: [id number] Family : Order #: [id number] CLICK HERE TO VIEW EXAM RADIOLOGY REPORT [...] None Family Cancers None LOCATION: [facility] BREAST COMPOSITION: Heterogeneously dense,which may obscure [...] Ibrahim MD on 05/28/2022 at 10:20 Normal [facility] Physician Referralon 022 Physician Referral [id number]:127 Normal [facility] 05-08-2022 CNPN Telephone (CARD [facility]) -- SYLVIA HERRERA ([id number]) 1945 F Date Time Provider Department 05/08/22 LOIDA MATHIAS CARD CHF ISACC During your visit today, we recorded the following information about you: Linden Weems 05/08/2022 11:50 AM Signed Patient had labs drawn 05/07/22, uploaded to scanned docs. Linden Weems Administrative Hand I Cutter Loida Mathias APRN.LINESPERSON 05/08/2022 3:21 PM Signed Received labs drawn [...] ng/mL 10.1 9.9 4.5 (L) 3.4 (L) Lodia Mathias APRN.CNP 05/08/2022 3:26 PM Signed Addended by: LOIDA MATHIAS on: 05/08/2022 03:26 PM Modules accepted: Orders Allergies As of Date: 05/08/2022 Noted Allergy Reaction PERCOCET (OXYCODONE-ACETAMINOPHEN)0 05/18/2014 8 - GI Upset PHENERGAN (PROMETHAZINE HCL) 10/11/2005 14 - Other: See Comments Comments: hallucinations Date Reviewed: 09/02/2019 Reviewed by: Sandrita Guerrero - Fully Assessed Reason for Visit: Heart Transplant Follow Up [1020] Cmt: labs Visit Diagnosis:Heart transplanted (HCC) [Z94.1] Order(s):tacrolimus IR (PROGRAF) 0.5 mg capsuleTake 1 capsule by mouth twice daily. 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 No Dr Caldera: Rfl: TACROLIMUS/FK-506 BL [[id number]] Order #: [id number] FUTURE Prescriptions as of 05/08/2022 - tacrolimus [...] mg by mouth three times daily. - hgulmv-ixofpxad-gjwtrrr (CREON) 24,000-76,000 -120,000 unit cpDR Take 3 [...] 05/19/2014 [facility] (more content not included)... Normal [facility] BOX TEST SENT OUTon 05-07-20 22 SENT TO REF LAB 05/07/2022 Normal [facility] Comment on above: Performed By: #### RANDALL OLSON #### [facility] [address] [place] [address] Dr. Hardeep Rivera CBC AUTO DIFFon 05-07-2022 BASO # 0.0 103/ul Normal 0.0-0.1 [facility] Comment on above: Performed By: #### RANDALL OLSON #### [facility] [address] [address] [address] Hardeep Rivera Basophils/100 WBC (Bld) 0.4 % Normal 0.2-2.0 [facility] Comment on above: Performed By: #### RANDALL OLSON #### [facility] [address] [place] [address] Dr. Hardeep Rivera EO # 0.1 103/ul Normal 0.0-0.7 [facility] Comment on above: Performed By: #### RANDALL OLSON #### [facility] [address] [place] [address] Dr. Hardeep Rivera Eosinophils/100 WBC (Bld) 1.0 % Normal 0.9-7.0 [facility] Comment on above: Performed By: #### HARI OLSONRO #### [facility] [address] [place] [address] Dr. Hardeep Rivera Erythrocyte distribution width (RBC) [Ratio] 12.6 % Normal 11.0-15.0 [facility] Comment on above: Performed By: #### RANDALL OLSON #### [facility] [address] [place] [address] Dr. Hardeep Rivera Hematocrit (Bld) [Volume fraction] 44.0 % Normal 36.0-48.0 [facility] Comment on above: Performed By: #### HARI OLSONRO #### [facility] [address] [place] [address] Dr. Hardeep Rivera Hemoglobin (Bld) [Mass/Vol] 14.0 g/dL Normal 12.0-16.0 [facility] Comment on above: Performed By: #### HARI OLSONRO #### [facility] [address] [place] [address] Dr. Hardeep Rivera IG # 0.02 10e3/ul Normal 0.00-0.03 [facility] Comment on above: Performed By: #### HARI OLSONRO #### [facility] [address] [place] [address] Dr. Hardeep Rivera IG % 0.3 % Normal 0.0-0.5 [facility] Comment on above: Performed By: #### HARI OLSONRO #### [facility] [address] [place] [address] Dr. Hardeep Rivera LYMPH # 0.6 103/ul Critically low 1.2-3.8 [facility] Comment on above: Performed By: #### HARI OLSONRO #### [facility] [address] [place] [address] Dr. Hardeep Rivera Lymphocytes/100 WBC (Bld) 8.2 % Critically low 20.5-60.0 [facility] Comment on above: Performed By: #### E RUR, UMICRO #### [facility] [address] [place] [address] Dr. Hardeep Rivera MANUAL DIFF REQ NO Normal [facility] Comment on above: Performed By: #### E RUR, UMICRO #### [facility] [address] [place] [address] Dr. Hardeep Rivera MCH (RBC) [Entitic mass] 29.4 pg Normal 26.7-34.0 [facility] Comment on above: Performed By: #### E RUTrish, UMICRO #### [facility] [address] [place] [address] Dr. Hardeep Rivera MCHC (RBC) [Mass/Vol] 31.8 g/dL Normal 29.9-35.2 [facility] Comment on above: Performed By: #### E KATHRIN, ICRO #### [facility] [address] [place] [address] Dr. Hardeep Rivera MCV (RBC) [Entitic vol] 92.2 fL Normal 81.0-99.0 [facility] Comment on above: Performed By: #### E KATHRIN, UMICRO #### [facility] [address] [place] [address] Dr. Hardeep Rivera MONO # 0.8 103/ul Normal 0.3-0.8 [facility] Comment on above: Performed By: #### E RUTrish, UMICRO #### [facility] [address] [place] [address] Dr. Hardeep Rivera Monocytes/100 WBC (Bld) 9.6 % Normal 1.7-12.0 [facility] Comment on above: Performed By: #### E RUR, UMICRO #### [facility] [address] [place] [address] Dr. Hardeep Rivera NEUT # 6.3 103/ul Normal 1.4-6.5 [facility] Comment on above: Performed By: #### RANDALL OLSON #### [facility] [address] [place] [address] Dr. Hardeep Rivera Neutrophils/100 WBC (Bld) 80.5 % Critically high 43.0-75.0 [facility] Comment on above: Performed By: #### RANDALL OLSON #### [facility] [address] [place] [address] Dr. Hardeep Rivera Platelet mean volume (Bld) [Entitic vol] 10.1 fL Normal 9.5-13.5 [facility] Comment on above: Performed By: #### RANDALL OLSON #### [facility] [address] [place] [address] Dr. Hardeep Rivera PLT 188 103/ul Normal 150-450 [facility] Comment on above: Performed By: #### RANDALL OLSON #### [facility] [address] [place] [address] Dr. Hardeep Rivera RBC 4.77 106/ul Normal 4.20-5.40 [facility] Comment on above: Performed By: #### RANDALL OLSON #### [facility] [address] [place] [address] Dr. Hardeep Rivera WBC 7.8 103/ul Normal 4.0-11.0 [facility] Comment on above: Performed By: #### RANDALL OLSON #### [facility] [address] [place] [address] Dr. Hardeep Rivera PROF CHEM 8 (BAS METB)on Anion gap [Moles/Vol] 11.9 mmol/L Normal [facility] Comment on above: Performed By: #### RANDALL OLSON #### [facility] [address] [place] [address] Dr. Hardeep Rivera Calcium [Mass/Vol] 8.7 mg/dL Normal 8.5-10.1 [facility] [place] [facility] Comment on above: Performed By: #### E RUR, UMICRO #### [facility] [address] [place] [address] Dr. Hardeep Rivera Chloride [Moles/Vol] 99 mmol/L Normal 98-107 [facility] Comment on above: Performed By: #### E COLLINSR, UMICRO #### [facility] [address] [place] [address] Dr. Hardeep Rivera CO2 [Moles/Vol] 27.1 mmol/L Normal 21.0-32.0 [facility] Comment on above: Performed By: #### E COLLINSR, UMICRO #### [facility] [address] [place] [address] Dr. Hardeep Rivera Creatinine [Mass/Vol] 1.62 mg/dL Critically high 0.55-1.02 [facility] Comment on above: Performed By: #### E KATHRIN UMICRO #### [facility] [address] [place] [address] Dr. Hardeep Rivera EGFR-AF FINNISH 37 mL/min/1.73m2 Critically low >=60 [facility] Comment on above: Performed By: #### Deedee PINON UMICRO #### [facility] [address] [place] [address] Dr. Hardeep Rivera EGFR-NON AF FINNISH 31 mL/min/1.73m2 Critically low >=60 [facility] Comment on above: Performed By: #### E KATHRIN UMICRO #### [facility] [address] [place] [address] Dr. Hardeep Rivera Glucose [Mass/Vol] 73 mg/dL Critically low 74-106 [facility] [place] [facility] Comment on above: Performed By: #### E RUTrish, UMICRO #### [facility] [address] [place] [address] Dr. Hardeep Rivera Potassium [Moles/Vol] 4.0 mmol/L Normal 3.5-5.1 [facility] Comment on above: Performed By: #### E RUR, UMICRO #### [facility] [address] [place] [address] Dr. Hardeep Rivera Sodium [Moles/Vol] 134 mmol/L Critically low 136-145 [facility] Comment on above: Performed By: #### RANDALL OLSON #### [facility] [address] [address] [address] Hardeep Rivera Urea nitrogen [Mass/Vol] 33.0 mg/dL Critically high 7.0-18.0 [facility] Comment on above: Performed By: #### RANDALL OLSON #### [facility] [address] [address] [address] Hardeep Rivera Urea nitrogen/Creatinine [Mass ratio] 20.4 mg/mg Normal [facility] Comment on above: Performed By: #### RANDALL OLSON #### [facility] [address] [address] [address] Hardeep Rivera TACROLIMUS/FK-506 BLon 05-07 Tacrolimus (Bld) [Mass/Vol] 3.4 ng/mL Low 5.0-20.0 [facility] Comment on above: Order Comment: Speci [...] Test performed by chemiluminescent immunoassay using Sutton Franchise Sales Manager. Performed By: #### F K506 ####[facility] LABCLIA [id number] [address] [place] Eduardo 05-03-2022 NIK Telephone (CARD MARICEL DEXTER) -- SYLVIA HERRERA ([id number]) 1945 F Date Time Provider Department 05/03/22 SHO CROWLEY [facility] During your visit today, we recorded the following information about you: Sho Crowley APRN.LINESPERSON 05/03/2022 2:58 PM Signed received phone call from [facility] Cardiology group requesting patient's Tacrolimus levels from 04/24. Faxed results to [phone]. Allergies As of Date: 05/03/2022 Noted Allergy Reaction PERCOCET (OXYCODONE-ACETAMINOPHEN)0 05/18/2014 8 - GI Upset PHENERGAN (PROMETHAZINE HCL) [...] mg by mouth three times daily. - ctwhfc-tszyeqkz-inawofm (CREON) 24,000-76,000 -120,000 unit cpDR Take 3 [...] Status:Closed by SHO CROWLEY on 05/03/22 Normal [facility] BOX TEST SENT OUTon 04-24-20 SENT TO REF LAB 04/24/2022 Normal [facility] Comment on above: Performed By: #### RANDALL OLSON #### [facility] [address] [place] [address] Dr. Hardeep Clark 04-24-2022 NIK Telephone (CARD CHF ISACC) -- SYLVIA HERRERA ([id number]) 1945 F Date Time Provider Department 04/24/22 [facility] During your visit today, we recorded the following information about you: Linden Rolandcarlos 04/24/2022 1:31 PM Signed Patient left message that she had labs drawn today. Linden Faustina Administrative Hand I Cutter Post Heart Transplant J3-4 Loida Mathias APRN.CNP 04/26/2022 11:25 AM Signed Received FK level 4.5, drawn 04/24 My chart message sent to patient. Advised to remain on current dose and keep our office updated re: her plans for post transplant follow up. Loida Mathias APRN.CNP April 26, 2022 11:24 AM Component Latest Ref Rng AND Units 04/24/2022 Tacrolimus/FK506 5.0 - 20.0 ng/mL 4.5 (L) Allergies As of Date: 04/24/2022 Noted Allergy Reaction PERCOCET (OXYCODONE-ACETAMINOPHEN)0 05/18/2014 8 - GI Upset PHENERGAN (PROMETHAZINE HCL) [...] mg by mouth three times daily. - kiatgb-jolotizt-lgyozvh (CREON) 24,000-76,000 -120,000 unit cpDR Take 3 [...] Status:Closed by LINDEN WEEMS on 04/24/22 Normal [facility] TACROLIMUS/FK-506 BLon 04-24 Tacrolimus (Bld) [Mass/Vol] 4.5 ng/mL Low 5.0-20.0 [facility] Comment on above: Order Comment: Speci [...] Test performed by chemiluminescent immunoassay using Sutton Franchise Sales Manager. Performed By: #### F K506 ####[facility] LABCLIA [id number] [facility] [id number] [place] FK506 (TACROLIMUS) WHOLE BLO ODon 04-11-2022 Tacrolimus (FK506), Blood 7.3 ng/mL Normal 2.0-20.0 [facility] Comment on above: Result Comment: Trou gh (immediately following transplant) 15.0 . Trough (steady state, 2 weeks or more after transplant): 3.0 - 8.0 . Performed by LC-MS/MS technology. Performed By: #### RANDALL OLSON #### [facility] [address] [place] [address] Dr. Hardeep Rivera BOX TEST SENT OUTon 04-09-20 22 SENT TO REF LAB 04/09/2022 Normal [facility] Comment on above: Performed By: #### RANDALL OLSON #### [facility] [address] [place] [address] Dr. Hardeep Rivera CBC AUTO DIFFon 04-09-2022 BASO # 0.0 103/ul Normal 0.0-0.1 [facility] Comment on above: Performed By: #### HARI OLSONRO #### [facility] [address] [place] [address] Dr. Hardeep Rivera Basophils/100 WBC (Bld) 0.1 % Critically low 0.2-2.0 [facility] Comment on above: Performed By: #### RANDALL OLSON #### [facility] [address] [place] [address] Dr. Hardeep Rivera EO # 0.1 103/ul Normal 0.0-0.7 [facility] Comment on above: Performed By: #### RANDALL OLSON #### [facility] [address] [place] [address] Dr. Hardeep Rivera Eosinophils/100 WBC (Bld) 1.2 % Normal 0.9-7.0 [facility] Comment on above: Performed By: #### HARI OLSONRO #### [facility] [address] [place] [address] Dr. Hardeep Rivera Erythrocyte distribution width (RBC) [Ratio] 12.6 % Normal 11.0-15.0 [facility] Comment on above: Performed By: #### HARI OLSONRO #### [facility] [address] [place] [address] Dr. Hardeep Rivera Hematocrit (Bld) [Volume fraction] 44.1 % Normal 36.0-48.0 [facility] Comment on above: Performed By: #### HARI OLSONRO #### [facility] [address] [place] [address] Dr. Hardeep Rivera Hemoglobin (Bld) [Mass/Vol] 14.1 g/dL Normal 12.0-16.0 [facility] Comment on above: Performed By: #### HARI OLSONRO #### [facility] [address] [place] [address] Dr. Hardeep Rivera IG # 0.02 10e3/ul Normal 0.00-0.03 [facility] Comment on above: Performed By: #### HARI OLSONRO #### [facility] [address] [place] [address] Dr. Hardeep Rivera IG % 0.3 % Normal 0.0-0.5 [facility] Comment on above: Performed By: #### HARI OLSONRO #### [facility] [address] [place] [address] Dr. Hardeep Rivera LYMPH # 0.7 103/ul Critically low 1.2-3.8 [facility] Comment on above: Performed By: #### HARI OLSONRO #### [facility] [address] [place] [address] Dr. Hardeep Rivera Lymphocytes/100 WBC (Bld) 10.8 % Critically low 20.5-60.0 [facility] Comment on above: Performed By: #### AKSHAT OLSONICRO #### [facility] [address] [place] [address] Dr. Hardeep Rivera MANUAL DIFF REQ NO Normal [facility] Comment on above: Performed By: #### Deedee PINON UMICRO #### [facility] [address] [place] [address] Dr. Hardeep Rivera MCH (RBC) [Entitic mass] 29.3 pg Normal 26.7-34.0 [facility] Comment on above: Performed By: #### Deedee PINON UMICRO #### [facility] [address] [place] [address] Dr. Hardeep Rivera MCHC (RBC) [Mass/Vol] 32.0 g/dL Normal 29.9-35.2 [facility] Comment on above: Performed By: #### Deedee PINON UMICRO #### [facility] [address] [place] [address] Dr. Hardeep Rivera MCV (RBC) [Entitic vol] 91.7 fL Normal 81.0-99.0 [facility] Comment on above: Performed By: #### Deedee PINON UMICRO #### [facility] [address] [place] [address] Dr. Hardeep Rivera MONO # 0.7 103/ul Normal 0.3-0.8 [facility] Comment on above: Performed By: #### Deedee PINON UMICRO #### [facility] [address] [place] [address] Dr. Hardeep Rivera Monocytes/100 WBC (Bld) 10.8 % Normal 1.7-12.0 [facility] Comment on above: Performed By: #### Deedee PINON UMICRO #### [facility] [address] [place] [address] Dr. Hardeep Rivera NEUT # 5.2 103/ul Normal 1.4-6.5 [facility] Comment on above: Performed By: #### HARI OLSONRO #### [facility] [address] [place] [address] Dr. Hardeep Rivera Neutrophils/100 WBC (Bld) 76.8 % Critically high 43.0-75.0 [facility] Comment on above: Performed By: #### HARI OLSONRO #### [facility] [address] [place] [address] Dr. Hardeep Rivera Platelet mean volume (Bld) [Entitic vol] 9.8 fL Normal 9.5-13.5 [facility] Comment on above: Performed By: #### HARI OLSONRO #### [facility] [address] [place] [address] Dr. Hardeep Rivera PLT 200 103/ul Normal 150-450 [facility] Comment on above: Performed By: #### HARI OLSONRO #### [facility] [address] [place] [address] Dr. Hardeep Rivera RBC 4.81 106/ul Normal 4.20-5.40 [facility] Comment on above: Performed By: #### HARI OLSONRO #### [facility] [address] [place] [address] Dr. Hardeep Rivera WBC 6.7 103/ul Normal 4.0-11.0 [facility] Comment on above: Performed By: #### HARI OLSONRO #### [facility] [address] [place] [address] Dr. Hardeep iRvera PROF CHEM 8 (BAS METB)on Anion gap [Moles/Vol] 9.1 mmol/L Normal [facility] Comment on above: Performed By: #### HARI OLSONRO #### [facility] [address] [place] [address] Dr. Hardeep Rivera Calcium [Mass/Vol] 8.3 mg/dL Critically low 8.5-10.1 [facility] Comment on above: Performed By: #### HARI OLSONRO #### [facility] [address] [place], [place] [address] Dr. Hardeep Rivera Chloride [Moles/Vol] 100 mmol/L Normal 98-107 [facility] Comment on above: Performed By: #### AKSHAT OLSONICRO #### [facility] [address] [place] [address] Dr. Hardeep Rivera CO2 [Moles/Vol] 28.1 mmol/L Normal 21.0-32.0 [facility] Comment on above: Performed By: #### E KATHRIN, UMICRO #### [facility] [address] [place] [address] Dr. Hardeep Rivera Creatinine [Mass/Vol] 1.54 mg/dL Critically high 0.55-1.02 [facility] Comment on above: Performed By: #### Deedee PINON, UMICRO #### [facility] [address] [place] [address] Dr. Hardeep Rivera EGFR-AF FINNISH 40 mL/min/1.73m2 Critically low >=60 [facility] Comment on above: Performed By: #### Deedee PINON, UMICRO #### [facility] [address] [place] [address] Dr. Hardeep Rivera EGFR-NON AF FINNISH 33 mL/min/1.73m2 Critically low >=60 [facility] Comment on above: Performed By: #### Deedee PINON, UMICRO #### [facility] [address] [place] [address] Dr. Hardeep Rivera Glucose [Mass/Vol] 122 mg/dL Critically high 74-106 [facility] Comment on above: Performed By: #### E KATHRIN, UMICRO #### [facility] [address] [place] [address] Dr. Hardeep Rivera Potassium [Moles/Vol] 4.2 mmol/L Normal 3.5-5.1 [facility] Comment on above: Performed By: #### Deedee PINON, UMICRO #### [facility] [address] [place] [address] Dr. Hardeep Rivera Sodium [Moles/Vol] 133 mmol/L Critically low 136-145 [facility] Comment on above: Performed By: #### E RUR, UMICRO #### [facility] [address] [place], [place] [address] Dr. Hardeep Rivera Urea nitrogen [Mass/Vol] 28.0 mg/dL Critically high 7.0-18.0 [facility] Comment on above: Performed By: #### E KATHRIN, UMICRO #### [facility] [address] [place], [place] [address] Dr. Hardeep Rivera Urea nitrogen/Creatinine [Mass ratio] 18.2 mg/mg Normal [facility] Comment on above: Performed By: #### E KATHRIN, UMICRO #### [facility] [address] [place], [place] [address] Dr. Hardeep Rivera TACROLIMUS/FK-506 BLon 04-09 Tacrolimus (Bld) [Mass/Vol] 9.9 ng/mL Normal 5.0-20.0 [facility] Comment on above: Order Comment: Speci [...] Test performed by chemiluminescent immunoassay using [employer] Franchise Sales Manager. Performed By: #### F K506 ####[facility] LABCLIA [id number] [address] [place] CNPMary Kay 10-10-2021 CNPN Telephone (JULIAN CONNELLY MAI) -- SYLVIA HERRERA ([id number]) 1945 F Date Time Provider Department 10/10/21 LOIDA MATHIAS CARD [facility]ACC During your visit today, we recorded the following information about you: Linden Rolandcarlos 10/10/2021 11:57 AM Signed Patient had labs drawn today Linden Weems Administrative Hand I Cutter Linden Weems 10/11/2021 10:57 AM Signed Labs uploaded to scanned docs. Linden Weems Administrative Hand I Cutter Loida Mathias APRN.CNP 10/12/2021 12:28 PM Signed Received outside labs [...] of Date: 10/10/2021 Noted Allergy Reaction PERCOCET (OXYCODONE-ACETAMINOPHEN)0 05/18/2014 8 - GI Upset PHENERGAN (PROMETHAZINE HCL) [...] transplant. No Dr Caldera: Rfl: TACROLIMUS/FK-506 BL [[id number]] Order #: [id number] FUTURE Prescriptions as of 10/12/2021 - tacrolimus [...] mg by mouth three times daily. - urzrwb-twtykjwb-zjuglxz (CREON) 24,000-76,000 -120,000 unit cpDR Take 3 [...] [J18.9] 11/29 (more content not included)... Normal [facility] Tacrolimus / [id number] Tacrolimus / FK506 10.1 ng/mL Normal 5.0-20.0 [facility] Comment on above: Result Comment: [...] Test performed by chemiluminescent immunoassay using [employer] Franchise Sales Manager. Performed By: #### F K506 ####[facility] [address] [place], [place] [id number] CNPMary Kay 09-13-2021 CNPN Telephone (CARD CHF ISACC) -- SYLVIA HERRERA ([id number]) 1945 F Date Time Provider Department 09/13/21 ARELIS NEWSOME CARD [facility] During your visit today, we recorded the following information about you: Linden Faustina 09/13/2021 2:52 PM Signed S/w pt, due to transportation and financial constraints she is unable to come to [place] for appointments. Patient is working with her family caseworker to establish care with a local portable trackman (had previously been followed by one in [place]).Dr Rice has agreed and plan going forward will be to do a phone visit with pt on 10/03 and she will follow up in the interim with her local Electrical Engineering Manager. Sending pt mailers and lab order, she will get those done as soon as she can. Linden Faustian Administrative Hand I Cutter Allergies As of Date: 09/13/2021 Noted Allergy Reaction PERCOCET (OXYCODONE-ACETAMINOPHEN)0 05/18/2014 8 - GI Upset PHENERGAN (PROMETHAZINE HCL) [...] mg by mouth three times daily. - rgprtg-pxtprgik-rsjfltv (CREON) 24,000-76,000 -120,000 unit cpDR Take 3 [...] [J18.1] 12/03/2014 09/02/2019 DREW (acute kidney injury) ([facility]) [N17.9] 12/03/2014 Anxiety disorder [F41.9] 07/05/2015 Pain [R52] 11/14/2017 09/02/2019 Letter Text Letter Text Encounter Status:Closed by LINDEN WEEMS on 09/13/21 [facility] OBSOLETEon 09-12-2021 OBSOLETE Refill (JULIAN [facility] ) -- JACQUESSYLVIA Erin ([id number]) 1945 F Date Time Provider Department 09/12/21 SANDRITA GUERRERO [facility] During your visit today, we recorded the following information about you: Allergies As of Date: 09/12/2021 Noted Allergy Reaction PERCOCET (OXYCODONE-ACETAMINOPHEN)0 05/18/2014 8 - GI Upset PHENERGAN (PROMETHAZINE HCL) 10/11/2005 14 - Other: See Comments Comments: hallucinations Date Reviewed: 09/02/2019 Reviewed by: Sandrita Guerrero - Fully Assessed Order(s):mycophenolate mofetil (CELLCEPT) 250 mg capsuletake 2 capsules [...] in PM. 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 Janelle Don - amitriptyline (ELAVIL) 10 mg tablet [...] mg by mouth three times daily. - uaozwq-jgemtgrc-txcupvx (CREON) 24,000-76,000 -120,000 unit cpDR Take 3 [...] Status:Closed by SANDRITA GUERRERO on 09/12/21 Normal [facility] Vital Signs Date Time Vital Sign Value Performing Clinician Dami charles 04-08-2023 06:45-0400 Diastolic blood pressure 76 mm[Hg] Richard Roby [facility] 04-08-2023 06:45-0400 Heart rate 59 /min Richard Roby [facility] 04-08-2023 06:45-0400 Hourly Rounding Richard Roby [facility] 04-08-2023 06:45-0400 Mean blood pressure 106 mm[Hg] Richard Roby [facility] 04-08-2023 06:45-0400 Respiratory rate 18 /min Richard Roby [facility] 04-08-2023 06:45-0400 SaO2% (BldA) [Mass fraction] 96 % Richard Roby [facility] 04-08-2023 06:45-0400 Systolic blood pressure 167 mm[Hg] Richard Roby [facility] 04-08-2023 05:30-0400 Diastolic blood pressure 88 mm[Hg] Richard Roby [facility] 04-08-2023 05:30-0400 Heart rate 52 /min Richard Roby [facility] 04-08-2023 05:30-0400 Hourly Rounding Richard Roby [facility] 04-08-2023 05:30-0400 Mean blood pressure 114 mm[Hg] Richard Roby [facility] 04-08-2023 05:30-0400 Respiratory rate 18 /min Richard Roby [facility] 04-08-2023 05:30-0400 SaO2% (BldA) [Mass fraction] 95 % Richard Roby [facility] 04-08-2023 05:30-0400 Systolic blood pressure 167 mm[Hg] Richard Roby [facility] 04-08-2023 04:39-0400 Diastolic blood pressure 90 mm[Hg] Richard Roby [facility] 04-08-2023 04:39-0400 Heart rate 56 /min Richard Roby [facility] 04-08-2023 04:39-0400 Hourly Rounding Richard Roby [facility] 04-08-2023 04:39-0400 Mean blood pressure 112 mm[Hg] Richard Roby [facility] 04-08-2023 04:39-0400 Respiratory rate 17 /min Richard Roby [facility] 04-08-2023 04:39-0400 SaO2% (BldA) [Mass fraction] 94 % Richard Roby [facility] 04-08-2023 04:39-0400 Systolic blood pressure 155 mm[Hg] Richard Roby [facility] 04-07-2023 21:48-0400 Respiratory rate 18 /min Richard Roby [facility] 04-07-2023 21:19-0400 Body temperature 98.06 [degF] Richard Roby [facility] 04-07-2023 21:19-0400 Heart rate 65 /min Richard Roby [facility] 04-07-2023 21:19-0400 Respiratory rate 19 /min Richard Roby [facility] Encounters Encounter Date Encounter Type Care Provider Facility Start: 06-18-2024 End: 06-18-2024 ambulatory NON STAFF [facility] Work Phone: Start: 06-18-2024 End: 06-18-2024 Departed Referred [facility] Start: 02-03-2024 End: 02-03-[address] [facility] Start: 11-12-2023 End: 11-12-[address] [facility] Start: 08-07-2023 End: 08-07-[address] [facility] Start: 04-07-2023 End: 04-08-2023 Emergency department patient visit Richard Ca Facility:[facility] Start: 04-07-2023 End: 04-08-2023 Emergency department patient visit Richard Ca [facility] Start: 03-05-2023 End: 03-05-2023 ambulatory SCOT [...] Start: 10-03-2022 End: 10-03-2022 ambulatory SCOT ROGERS Facility: Start: 09-08-2022 Refill Sandrita Esther ACADEMIC ASSOCIATE.LINESPERSON Work Phone: Cardiology Comment on above: Refill Request Start: 08-04-2022 End: 08-04-2022 ambulatory NANCY REYES . Facility: Start: 08-02-2022 Telephone encounter Loida Mathias APRN.LINESPERSON Work Phone: Cardiology Comment on above: Heart Transplant Fol low Up (Labs/) Start: 08-02-2022 End: 08-03-[address] TAO ROONEY . Facility: Start: 07-27-[address] TAO ROONEY . Facili ty: Start: 07-17-2022 End: 07-18-[address] [facility] Facility:[facility] Start: 07-16-2022 End: 07-17-[address] [facility] Facility:[facility] Start: 07-16-2022 End: 07-16-[address] [facility] Start: 07-12-2022 End: 07-13-[address] [facility] Facility:[facility] Start: 07-05-2022 Telephone encounter Sho Crowley APRN.LINESPERSON Work Phone: Cardiology Comment on above: Heart Transplant Fol low Up; Lab Meeting Start: 07-03-2022 Telephone encounter Soy Mccann RN [facility] rdiology Comment on above: Heart Transplant Fol low Up (labs) Start: 07-03-2022 End: 07-04-[address] TAO ROONEY . Facility: Start: 05-28-2022 End: 05-29-[address] TAO ROONEY . Facility:[facility]1 Start: 05-23-[address] [facility] Facility:[facility] Start: 05-08-2022 Telephone encounter Loida Mathias APRN.LINESPERSON Work Phone: Cardiology Comment on above: Heart Transplant Fol low Up (labs) Start: 05-07-2022 End: 05-08-[address] TAO ROONEY . Facility:[facility]1 Start: 04-24-2022 Telephone encounter Loida Mathias APRN.LINESPERSON Work Phone: Cardiology Comment on above: Heart Transplant Fol low Up Start: 04-24-2022 End: 04-25-[address] TAO ROONEY . Facility:[facility]1 Start: 04-20-[address] TAO ROONEY . Facili ty:H1 Start: 04-11-2022 ambulatory Loida fontaine APRN.LINESPERSON Work Phone: [facility] Start: 04-11-2022 Follow-up encounter Loida Mathias APRN.LINESPERSON Work Phone: Cardiology Comment on above: Heart Transplant Fol low Up (Labs) Start: 04-09-2022 End: 04-10-[address] TAO ROONEY . Facility:[facility]1 Start: 04-06-2022 Orders Only Loida fontaine APRN.LINESPERSON Work Phone: Cardiology Comment on above: Heart replaced by tr ansplant ([facility]) (Primary Dx) Start: 04-04-2022 Refill Loida fontaine APRN.LINESPERSON Work Phone: Cardiology Comment on above: Rx Refills Start: 10-03-2021 End: 10-03-2021 ambulatory NICOLETTE RICE [facility] Procedures Date Procedure Procedure Detail Performing Clinician Start: 08-10-2013 H/O: heart recipient Heart transplan arianna Loida Mathias APRN.LINESPERSON Work Phone: H/O: heart recipient Heart transplanted ( HCC) Loida Bishopo ACADEMIC ASSOCIATE.LINESPERSON Work Phone: H/O: heart recipient Heart repla nitish by transplant (HCC) Loida Mathias APRN.LINESPERSON Work Phone: H/O: heart recipient Heart transplanted ( HCC) Loida Mathias ACADEMIC ASSOCIATE.LINESPERSON Work Phone: H/O: heart recipient Heart transplanted ( HCC) Loida Mathias ACADEMIC ASSOCIATE.LINESPERSON Work Phone: H/O: heart recipient Heart transplanted ( HCC) Sho Crowley APRN.LINESPERSON Work Phone: H/O: heart recipient Hx of heart transplant( Confirmed ) Eddie JAMA Plan of Treatment Date Care Activity Detail Author Start: 08-02-2022 Influenza vaccination INFLUENZA (#1) [facility] Start: 07-19-2022 End: 09-18-2022 Tacrolimus [Mass/volume] in Blood TACROLIMUS/FK-506 BL Lab Routine Heart transplanted (HCC) Expected: 07/19/2022 (Approximate), Expires: 09/18/2022 [facility] Work Phone: Comment on above: Expected: 07/19/2022 (Approximate), Expires: 09/18/2022 Start: 05-21-2022 End: 07-21-2022 TACROLIMUS/FK-506 BL TACROLIMUS/FK-506 BL Lab Routine Heart transplanted (HCC) Expected: 05/21/2022, Expires: 07/21/2022 [facility] Work Phone: Comment on above: Expected: 05/21/2022 , Expires: 07/21/2022 Start: 04-23-2022 End: 06-23-2022 TACROLIMUS/FK-506 BL TACROLIMUS/FK-506 BL Lab Routine Heart transplanted (HCC) Expected: 04/23/2022, Expires: 06/23/2022 [facility] Work Phone: Comment on above: Expected: 04/23/2022 , Expires: 06/23/2022 Start: 04-09-2022 End: 06-09-2022 CBC W Auto Differential panel - Blood CBC + DIFF Lab Routine Heart replaced by transplant (HCC) Expected: 04/09/2022, Expires: 06/09/2022 [facility] Work Phone: Comment on above: Expected: 04/09/2022 , Expires: 06/09/2022 Start: 04-09-2022 End: 06-09-2022 Comprehensive metabolic 2000 panel - Serum or Plasma COMP METABOLIC PANEL Lab Routine Heart replaced by transplant (HCC) Expected: 04/09/2022, Expires: 06/09/2022 [facility] Work Phone: Comment on above: Expected: 04/09/2022 , Expires: 06/09/2022 Start: 04-09-2022 End: 04-06-2023 HEART/LUNG REC POST TX DSA HEART/LUNG REC POST TX DSA ALLOGEN Routine Heart replaced by transplant ([facility]) Expected: 04/09/2022, Expires: 04/06/2023 [facility] Work Phone: Comment on above: Expected: 04/09/2022 , Expires: 04/06/2023 Start: 04-09-2022 End: 06-09-2022 LIPID PANEL BASIC LIPID PANEL BASIC Lab Routine Heart replaced by transplant ([facility]) Expected: 04/09/2022, Expires: 06/09/2022 [facility] Work Phone: Comment on above: Expected: 04/09/2022 , Expires: 06/09/2022 Start: 04-09-2022 End: 06-09-2022 Magnesium [Mass/volume] in Serum or Plasma MAGNESIUM BLD Lab Routine Heart replaced by transplant ([facility]) Expected: 04/09/2022, Expires: 06/09/2022 [facility] Work Phone: Comment on above: Expected: 04/09/2022 , Expires: 06/09/2022 Start: 04-09-2022 End: 06-09-2022 TACROLIMUS/FK-506 BL TACROLIMUS/FK-506 BL Lab Routine Heart replaced by transplant ([facility]) Expected: 04/09/2022, Expires: 06/09/2022 [facility] Work Phone: Comment on above: Expected: 04/09/2022 , Expires: 06/09/2022 Start: 04-09-2022 End: 06-09-2022 URINALYSIS, DIPSTICK ONLY URINALYSIS, DIPSTICK ONLY Lab Routine Heart replaced by transplant ([facility]) Expected: 04/09/2022, Expires: 06/09/2022 [facility] Work Phone: Comment on above: Expected: 04/09/2022 , Expires: 06/09/2022 Start: 12-02-2021 ADVANCE DIRECTIVE DISCUSSION ADVANCE DIRECTIVE DISCUSSION [facility] Start: 09-26-2021 COVID-19 VACCINE (3 - Pfizer risk 4-dose series) COVID-19 VACCINE (3 - Pfizer risk 4-dose series) [facility] Start: 09-26-2021 COVID-19 VACCINE (3 - Pfizer risk series) COVID-19 VACCINE (3 - Pfizer risk series) [facility] Start: 03-04-2020 Hepatitis B surface antibody level LDL CHOLESTEROL [facility] Start: 06-14-2015 Hemoglobin A1c/Hemoglobin.total in Blood HBA1C [facility] Start: 11-01-2013 PNEUMOCOCCAL: 65+ (3 - PCV) PNEUMOCOCCAL: 65+ (3 - PCV) [facility] Start: 2009 ADULT PREVNAR ADULT PREVNAR [facility] Start: 1994 SHINGRIX VACCINE (1 of 2) SHINGRIX VACCINE (1 of 2) [facility] Start: 1963 SHINGRIX VACCINE (1 of 2) SHINGRIX VACCINE (1 of 2) [facility] Start: 1963 Urine microalbumin profile DTAP,TDAP,TD (1 - Tdap) [facility] Start: 1962 ANNUAL 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 BRENNAN DISEASE VISIT ANNUAL PCP TEAM CHRONIC DISEASE VISIT [facility] Start: 1962 BP CONTROLLED (<130/80) BP CONTROLLE D (<130/80) [facility] Start: 1954 3 comp foot exam completed DIABETIC FOOT EXAM [facility] Start: 1954 Hepatitis B screening URINE ALBUMIN:CREATININE RATIO [facility] Start: 1954 Hepatitis C antibody , confirmatory test DILATED RETINAL EXAM [facility] Start: 1950 PNEUMOCOCCAL: 65+ (1 - PCV) PNEUMOCOCCAL: 65+ (1 - PCV) [facility] [place] [facility] Immunizations Immunization Date Immunization Notes Care Provider Valente mendes 06-05-2022 SARS-CoV-2 mRNA (wanmdcsxbbh-frzo-dbigl se) vaccine Eddie JAMA [facility] 08-29-2021 SARS-CoV-2 (COVID-19 ) mRNA BNT-162b2 vax Morgan SALAM [facility] 08-02-2021 SARS-CoV-2 (COVID-19 ) mRNA BNT-162b2 vax Morgan SALAM [facility] 07-05-2021 influenza virus vaccine, unspecified formulation Morgan SALAM [facility] 09-29-2020 influenza, unspecifi ed formulation Morgan SALAM [facility] 07-24-2020 influenza virus vaccine, unspecified formulation Morgan SALAM [facility] 09-02-2017 influenza virus vaccine, unspecified formulation Morgan SALAM [facility] 08-07-2017 pneumococcal conjuga te vaccine, 13 valent Morgan SALAM [facility] 08-14-2016 influenza virus vaccine, unspecified formulation Morgan SALAM [facility] 09-29-2015 pneumococcal conjuga te vaccine, 13 valent Morgan SALAM [facility] 08-04-2015 influenza virus vaccine, unspecified formulation Morgan SALAM [facility] 09-15-2014 influenza virus vaccine, whole virus Loida Iammarino ACADEMIC ASSOCIATE.LINESPERSON Work Phone: [facility] 09-15-2014 influenza, whole Morgan SALAM [facility] 11-01-2012 pneumococcal polysaccharide vaccine, 23 valent Loida Iammarino ACADEMIC ASSOCIATE.LINESPERSON Work Phone: [facility] 12-28-2009 novel udydexeum-[id number], all formulations Loida Iammarino ACADEMIC ASSOCIATE.LINESPERSON Work Phone: [facility] Work Phone: 08-19-2009 influenza virus vaccine, unspecified formulation Loida Sjteresitao ACADEMIC ASSOCIATE.LINESPERSON Work Phone: [facility] 09-01-2006 influenza virus vaccine, unspecified formulation Loida Bishopo ACADEMIC ASSOCIATE.LINESPERSON Work Phone: [facility] Work Phone: 09-01-2006 pneumococcal polysaccharide vaccine, 23 valent Loida Woodalbertoteresitao ACADEMIC ASSOCIATE.LINESPERSON Work Phone: [facility] Work Phone: NEGATED: Highlighted row has not occurred!07-12-2022 influenza virus vaccine, unspecified formulation Eddie JAMA [facility] Payers Date Payer Category Payer Self-pay 2022 Medicare UHC MEDICARE UHC DUAL COMPLETE HMO SNP [id number] 2022-Present [phone] [address] [place] [address] Medicare [id number] 2022 Medicare UHC MEDICARE UHC DUAL COMPLETE HMO SNP [id number] 2022-Present [phone] [address] [place] [address] Medicare [id number] 2020 Unknown [id number] 1959 Medicaid [id number] 1959 Medicare [id number] 1959 Self-pay [id number] 1959 Unknown [id number] 1944 Unknown [id number] [id number]3 1944 Unknown [id number] 2.16.840.1.125844.3.579.2.593 1944 Unknown [id number] 2.16.840.1.064354.3.579.2.593 1944 Unknown [id number] 2.16.840.1.419586.3.579.2.593 1944 Unknown [id number] 2.16.840.1.691072.3.579.2.593 1944 Unknown [id number] 2.16.840.1.026168.3.579.2.593 1944 Unknown [id number] 2.16.840.1.203457.3.579.2.593 1944 Unknown [id number] 2.16.840.1.292733.3.579.2.593 1944 Unknown [id number] 2.16.840.1.865656.3.579.2.593 1944 Unknown [id number] 2.16.840.1.935814.3.579.2.593 1944 Unknown [id number] 2.16.840.1.928949.3.579.2.593 1944 Unknown [id number] 2.16.840.1.791761.3.579.2.593 1944 Unknown [id number] 2.16.840.1.988066.3.579.2.593 1944 Unknown [id number] 2.16.840.1.719759.3.579.2.593 1944 Unknown [id number] 2.16.840.1.875692.3.579.2.593 1944 Unknown [id number] 2.16.840.1.187592.3.579.2.593 1944 Unknown [id number] 2.16.840.1.824916.3.579.2.593 1944 Unknown [id number] 2.16.840.1.121893.3.579.2.593 1944 Unknown [id number] 2.16.840.1.701681.3.579.2.727 1944 Unknown [id number] 2.16.840.1.087815.3.579.2.727 1944 Unknown [id number] 2.16.840.1.834814.3.579.2.727 1944 Unknown [id number] 2.16.840.1.553534.3.579.2.727 1944 Unknown [id number] 2.16.840.1.217848.3.579.2.727 Unknown [id number] 2.16.840.1.841338.3.579.2.593 Social History Date Type Detail Facility Start: [facility]13-[facility] Work Phone: History of tobacco use Cigarette Smoker [facility] Work Phone: Start: 09-07-2019 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) [facility] Start: 1945 Sex Assigned At Not on file [facility] Start: 07-12-2022 Never smoked t obacco (finding) [facility] Never [facility] Female [facility] History of tobacco use Current smoker [facility] Start: 05-13-2019 Cigarettes smoked current (pack per day) - Reported 0.3 [facility] Start: 05-13-2019 Tobacco use and exposure Smokeless tobacco non-user [facility] Start: 1945 Sex Assigned At Female [facility] Functional Status Date Assessment Result Facility 04-07-2023 Functional Status N/A [facility] Clinical Notes 11-14-2017 to 02-03-2024 Note Date & Type Note Facility 02-03-2024 Note [facility] Subjective Sylvia Herrera is a 78 y.o. year old female patient being seen for follow up [facility]. She was seen as inpatient consult [...] in 2007. She is followed by the [facility] cardiology service. She has had no [...] also has pancreatic exocrine insufficiency diagnosed in 2017 when she was hospitalized with diarrhea, dehydration [...] the prior echocardiographi (more content not included)... [facility] 11-12-2023 Note [place] [facility] Subjective Sylvia Herrera is a 77 [...] in 2007. She is followed by the [facility] cardiology service. She has had no [...] Stress Testing (1 (more content not included)... [facility] 10-28-2023 Note [facility] 08-07-2023 Note [place] [facility] Subjective Sylvia Herrera is a 77 [...] in 2007. She is followed by the [facility] cardiology service. She has had no [...] also has pancreatic exocrine insufficiency diagnosed in 2017 when she was hospitalized with diarrhea, dehydration [...] scan. [address] [facility] (more content not included)... [facility] 07-23-2023 Note ta [facility] 04-08-2023 Hospital Discharge instructions Patient Education 04/08/2023 [...] ?Adrenal gland problems. ?Metabolic conditions, such as Winnebago's disease or syndrome of inappropriate antidiuresis (SIAD). [...] improvement. Follow these instructions at home: Take pmwt-oul-lfvawla and prescription medicines only as told by [...] provider. Document Revised: 05/29/2022 Document Reviewed: 05/29/2022 [employer] Patient Education 2022 [employer]. 04/08/2023 08:56:02 Nonspecific Chest Pain, Adult Nonspecific [...] Follow these instructions at home: Medicines Take evxr-mxr-qgoloxd and prescription medicines only as told by [...] provider. Document Revised: 02/01/2022 Document Reviewed: 02/01/2022 [employer] Patient Education 2022 [employer]. Follow Up Care 04/07/2023 21:19:10 With:SCOT ROGERS Address: [address], [place] [address] [phone] Business (1) When:Within 3 Day(s) [facility] 04-07-2023 Evaluation + Plan note Extrac [...] Troponin 9 Hr. XR Chest Single View [facility]09-01-2022 Miscellaneous Notes* Telephone Encounter - Linden Weems - 08/02/2022 1:41 PM EDT Patient had labs drawn 08/02/22, uploaded to scanned docs. [facility] Misc[facility] Notes* Telephone Encounter - Sho Crowley APRN.LINESPERSON - 07/05/2022 10:40 AM EDT 07/03/22 labs: [...] care with another team. Sho Crowley APRN, CNP Pager: [phone] July 05, 2022 10:42 AM Post Heart Transplant Nurse Practitioner [facility] Miscellaneous Notes* Telephone Encounter - Linden Weems - 07/03/2022 12:59 PM EDT Patient had labs drawn 07/03/22, uploaded to scanned docs. [facility] Miscellaneous Notes* Addendum Note - Loida [...] 3.4 (L) * Telephone Encounter - Linden Michellejessica - 05/08/2022 11:49 AM EDT Patient had labs drawn 05/07/22, uploaded to scanned docs. Linden Weems Administrative Hand I Cutter documented [facility]05-[facility] Miscellaneous Notes* Telephone Encounter - Linden Faustina - 04/24/2022 1:31 PM EDT Patient left message that she had labs drawn today. Linden Weems Administrative Hand I Cutter Post Heart Transplant J3-4 documented in [facility] encounterPe[facility]05-11-2022 NoteHNO ID: [id number] Author: Loida Mathias APRN.ODETTE Service: ? Author Type: Nurse Practitioner Type: [...] reports she can no longer travel to [place]. She does not have a ride, she has no family or friends to lean on. She has made an appt with a local Electrical Engineering Manager. She will ask him if there are any transplant doctors or centers near her and potentially need to transfer her care. She will keep us updated. Loida Mathias APRN.CNP April 12, 2022 2:25 [facility]05-11-2022 History of Present illness Narrative* Loida [...] reports she can no longer travel to [place]. Shedoes not have a ride, she has no family or friends to lean on. She has made an appt with a local Electrical Engineering Manager. She will ask him if there are any transplant doctors or centers near her and potentiallyneed to transfer her care. She will keep us updated. Loida Mathias APRN.CNP April 12, 2022 2:25 PM documented in [facility] encounterPe[facility]11-08-2021 NoteHNO ID: [id number] Author: Loida Mathias APRN.CNP Service: ? Author [...] Loida Mathias APRN.CNP October 09, 2021 4:10 [facility]11-02-2021 NoteHNO ID: [id number] Author: Nicolette Rice MD Service: ? Author Type: Physician Type: Progress Notes Filed: 10/03/2021 4:12 PM Note Text: Heart, Vascular AND Thoracic [place] Department of Cardiovascular Medicine TELEPHONE VISIT PROGRESS [...] in ~6 months. Will see a local portable trackman at the end of the month. Data Reviewed: No new labs Assessment: She is doing well clinically and her BP is controlled. ? Plan: 1. She was instructed to continue the current medical program. 2. RTC per post-transplant protocol. Total Time Spent: 21-30 minutes Nicolette Rice, [facility]12-14-2017 History of Past illness Narrative* Problem [...] of this encounter (statuses as of 04/05/2022) [facility] History of Past illness Narrative* Problem [...] of this encounter (statuses as of 04/06/2022) [facility]12[facility]2017 History of Past illness Narrative* Problem [...] of this encounter (statuses as of 04/12/2022) [facility] History of Past illness Narrative* Problem [...] of this encounter (statuses as of 04/24/2022) [facility] History of Past illness Narrative* Problem [...] of this encounter (statuses as of 05/08/2022) [facility] History of Past illness Narrative* Problem [...] of this encounter (statuses as of 07/03/2022) [facility] History of Past illness Narrative* Problem [...] of this encounter (statuses as of 07/05/2022) [facility] History of Past illness Narrative* Problem [...] of this encounter (statuses as of 08/02/2022) [facility] History of Past illness Narrative* Problem [...] of this encounter (statuses as of 09/11/2022) [facility] + Plan note Future Appointments Appointment Date:08/01/2022 01:50:00 PM Scheduled Provider: Location:[facility] Appointment Type:Surgery FT Diagnostic Tests Pending * CMV Antibody IgM 07/16/22 Future Scheduled Tests Laboratory* Fecal WBC Lactoferrin 07/12/22 * Giardia lamblia, Direct Detection EIA 07/12/22 * O & P Exam, Routine 07/12/22 * Clostridium difficile by PCR 07/12/22 * Enteric Panel by PCR 07/12/22 [facility] Diagnosis Heart transplanted (HCC) Heart replaced by transplant documented in this encounter [facility] note* Diagnosis Heart replaced by transplant (HCC)- Primary Heart replaced by transplant documented in this encounter [facility] note* Diagnosis Heart replaced by transplant (HCC)- Primary Heart replaced by transplant Heart transplanted (HCC) Heart replaced by transplant documented in this encounter [facility] note* Diagnosis Heart transplanted (HCC) Heart replaced by transplant documented in this encounter [facility] note* Diagnosis Heart transplanted (HCC) Heart replaced by transplant documented [facility] this [facility] noteNo assessment information availableUpper [facility] Work Phone: Hospital course Narrative No data available for this section [facility] No data available for this section [facility] No data available for this section [facility] Advance Directives No Advanced Directives Records FoundDocuments on File Type Date Recorded Patient Eap Counselor Expl anation Advance Directive(s) 11/14/2017 5:44 AM Advance Directive(s) 01/02/2012 12:00 AM Advance Directive(s) 01/17/2007 12:00 AM Documents on File Type Date Recorded Patient Eap Counselor Expl anation Advance Directive(s) 01/02/2012 Advance Directive(s) [...] or prosecute any alcohol or drug abuse patient.[facility] HospitalIn the event this information is protected by the Federal Confidentiality of Alcohol and Drug Abuse Patient Records regulations: The Federal rules restrict any use of the information to criminally investigate or prosecute any alcohol or drug abuse patient.[facility] HospitalIn the event this information is protected by the Federal Confidentiality of Alcohol and Drug Abuse Patient Records regulations: The Federal rules restrict any use of the information to criminally investigate or prosecute any alcohol or drug abuse patient.[facility] HospitalIn the event this information is protected by the Federal Confidentiality of Alcohol and Drug Abuse Patient Records regulations: The Federal rules restrict any use of the information to criminally investigate or prosecute any alcohol or drug abuse patient.[facility] HospitalIn the event this information is protected by the Federal Confidentiality of Alcohol and Drug Abuse Patient Records regulations: The Federal rules restrict any use of the information to criminally investigate or prosecute any alcohol or drug abuse patient.[facility] HospitalIn the event this information is protected by the Federal Confidentiality of Alcohol and Drug Abuse Patient Records regulations: The Federal rules restrict any use of the information to criminally investigate or prosecute any alcohol or drug abuse patient.[facility] HospitalIn the event this information is protected by the Federal Confidentiality of Alcohol and Drug Abuse Patient Records regulations: The Federal rules restrict any use of the information to criminally investigate or prosecute any alcohol or drug abuse patient.[facility] HospitalIn the event this information is protected by the Federal Confidentiality of Alcohol and Drug Abuse Patient Records regulations: The Federal rules restrict any use of the information to criminally investigate or prosecute any alcohol or drug abuse patient.[facility] HospitalIn the event this information is protected by the Federal Confidentiality of Alcohol and Drug Abuse Patient Records regulations: The Federal rules restrict any use of the information to criminally investigate or prosecute any alcohol or drug abuse patient.[facility] Reason for Visit (unrecogniz ed section and content) Reason Comments Rx Refills Reason Comments Heart Transplant Follow Up Labs Reason Comments Heart Transplant Follow Up Reason Comments Heart Transplant Follow Up labs Reason Comments Heart Transplant Follow Up Lab Meeting Reason Comments Refill Request Care Teams (unrecognized sec tion and content) Baker Biscuit Relationship Specialty Start Date End Date Tao Rooney MD [address] [id number] PCP - General Family Practice 05/13/19 Baker Biscuit Relationship Specialty Start Date End Date Tao Rooney MD [address] [place] [address] PCP - General Family Practice 05/13/19 Baker Biscuit Relationship Specialty Start Date End Date Tao Rooney MD [address] [place] [address] PCP - General Family Practice 05/13/19 Baker Biscuit Relationship Specialty Start Date End Date Tao Rooney MD [address] [facility] [place] [address] PCP - General Family Practice 05/13/19 Baker Biscuit Relationship Specialty Start Date End Date Tao Rooney MD [address] [facility] [place] [address] PCP - General Family Practice 05/13/19 Baker Biscuit Relationship Specialty Start Date End Date Tao Rooney MD [address] [facility] [place] [address] PCP - General Family Medicine 05/13/19 Team Status: Inactive Member Role Status Dates NON STAFF Attending Provider Active Start: 2023 End: June 18, 2024 INFORMATION SOURCE (unrecogn ized section and content) DATE CREATED AUTHOR 09/01/2022 [facility] DATE CREATED AUTHOR AUTHOR'S ORGANIZ ATION 03/09/2023 [facility] DATE CREATED AUTHOR AUTHOR'S ORGANIZ ATION 04/08/2023 [facility] DATE CREATED AUTHOR AUTHOR'S ORGANIZ ATION 04/19/2024 [facility] DATE CREATED AUTHOR AUTHOR'S ORGANIZ ATION 06/21/2024 [facility] Goals (unrecognized section and content) Goals may be documented in a n alternate section FOR RECORDS PERTAINING TO PATIENTS WHO ARE [...] BE BASED ON THE PRIMARY CLINICAL RECORDS. [employer] provides no warranty or guarantee of the accuracy or completeness of information in this document.
[2024-07-01 13:50] LABS: Bilirubin Urine NEGATIVE (NEGATIVE); Blood Urine TRACE-I (NEGATIVE); Clarity Urine CLEAR (CLEAR); Color Urine LT. YELLOW (YELLOW); Glucose Urine UA NEGATIVE (NEGATIVE); Ketones Urine NEGATIVE (NEGATIVE); Leukocyte Esterase Urine MODERATE (NEGATIVE); Nitrite Urine NEGATIVE (NEGATIVE); Protein Urine 30 mg/dL (NEG/TRACE); Urobilinogen Urine 0.2 EU/dL (0.2-1.0)
[2024-07-01 13:59] LABS: Bacteria Urine SMALL #/HPF (NONE SEEN); Cast Seen? NONE SEEN #/LPF (NONE SEEN); Crystals Seen? None Seen #/HPF (None Seen); Mucus Urine TRACE (NONE SEEN); RBC Urine 0-2 #/HPF (0-2); Squamous Epithelial Cell Urine RARE #/LPF (NONE/RARE); Transitional Epi Cells Urine RARE #/LPF (NONE SEEN); Urine Culture Indicated ALREADY ORDERED
[2024-07-01 14:33] LABS: Free T3 2.18 pg/mL (2.18-3.98); Magnesium 1.2 mg/dL (1.8-2.4); Thyroid Stimulating Hormone 1.123 uIU/mL (0.358-3.740)
== END 2024-07-01 13:01 | disposition home or self-care (01) ==
LOC: LAB 13:02
PROVIDERS: PCP Family Medicine; Visit Provider Nurse Practitioner Family
DX: R30.0 Dysuria (principal); E83.42 Hypomagnesemia
CPT/HCPCS: 36415; 81001; 83735; 84436; 84443; 84481; 87086

== ENCOUNTER 2024-07-07 08:32 | Outpatient (OUT) | payer MEDICARE, SELFPAY ==
--- OUTSIDE RECORDS SUMMARY | 2024-07-07 08:48 | XMS_ITS | CCD ---
Author Organization [facility] ion Partnership [facility] Care Team Providers Care Flash Developer Name Role Phone Tao Davis MD Primary Care Provider [phone] SCOT ROGERS Primary Care Physician Tao Davis MD Primary Care Provider [phone] NICOLETTE RICE Attending UnavailARELIS Rivera Referring Unavailable TAO DAVIS Primary Care Unavailable Tao Davis MD Primary Care Provider [phone] TAO HEBERT Primary Care Unavailable [...] TORIBIO Sanchez, DR BURGER Primary Care Unavailable AYM Sanchez, NANCY Admitting Unavailable JAZLYN DUBOSE Consulting Unavailable AMY Sanchez, NANCY Consulting Unavailable CAMERON NELSON Consulting Unavaila karen Sanchez, DR BURGER Primary Care Unavailable MOUKAHERMILO, DR LANCASTER Admitting Unavailable MOUKARBEL, DR LANCASTER Attending Unavailable SCOT ROGERS Attending Unavailable HOY ., DR BURGER Primary Care Unavailable ZIEBER, DR HAI Chambers Consulting Unavailable SUE, SCOT Admitting Unavailable SUE, SCOT Consulting Unavailable HOY ., DR BURGER Primary Care Unavailable HOY ., DR BURGER Admitting Unavailable HOY ., DR BURGER Consulting Unavailable HOY ., DR BURGER Attending Unavailable MOUNT MARION, DR JAZLYN Marcelino Consulting Unavailable SCOT ROGERS [...] ., DR BURGER Primary Care Unavailable SCOT RGOERS Consulting Unavailable SUE, SCOT Admitting Unavailable SALAM, Morgan Admitting Unavailable SALAM, Morgan Attending Unavailable SALAM, Morgan Admitting Unavailable SALAM, Morgan Attending Unavailable Richard Ca Attending Unavailable SALAM, Morgan Attending Unavailable SUE, SCOT S Referring Unavailable NON STAFF Attending Provider Unavailable NON STAFF Admitting Unavailable NON STAFF Attending Unavailable ANISHA DINH Attending Unavailable ANISHA DINH Attending Unavailable ANISHA DINH Attending Unavailable ANISHA DINH Attending Unavailable Allergies Allergy Classification Reported Allergen(s) Allergy Type Date of Onset Reaction(s) Facility (10 sources) Acetaminophen / oxyCODONE; Translations: [OXYCODONE-ACETAM INOPHEN] Drug Allergy 05-18-20 14 GI Upset [facility] Work Phone: (11 sources) Promethazine; Translations: [PROMETHAZINE HCL] Drug Allergy 10-11-20 05 Other: See Comments [facility] (3 sources) Levamisole; Translations: [Phenergan] Drug Allergy 04-07-20 13 [facility] Rep[facility] (1 source) Morphine Drug Allergy [facility] (1 source) No Known Medication Allergies; Translations: [No Known Medication Allergies] Propensity to adverse reactions (disorder) [facility] Repository (2 sources) Promethazine; Translations: [promethazine] Drug Allergy 08-12-20 22 Loss of consciousness (finding) [facility] Medications Current Medications Medication Drug Class(es) [...] 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; 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] Onset: 02-18-2023 Episodic Other [...] (2 sources) Heart valve disorder 07-10-2022 Chronic Syncope (2 sources) Syncope and collapse; Translations: [Syncope and collapse] Onset: 07-01-2024 Episodic Thyroid disorders (14 sources) Hypothyroidism; Translations: [Hypothyroidism, [...] group home (current) use of aspirin; 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] Onset: 08-08-2022 Episodic [...] Value Interpretation Reference Range Facility Office Visiton 07-01-2024 Follow-up visit [id number] Sylvia Hanna 1945 F Date Provider Department Center 07/01/2024 ANISHA JACOBS Family History Family history unknown: Yes Level of Service:31434 DC OFFICE/OUTPATIENT ESTABLISHED MOD MDM 30 MIN Normal [facility] Activated partial thrombopla stin time (aPTT) in platelet poor plasma by coagulation aOrdered By: NON STAFF on 06-18-2024 aPTT Coag (PPP) [Time] 31.8 s 25.1-36.5 [facility] Comment on above: A hematocrit value g reater than 55% may lead to inaccurate results in coagulation testing. Patients having hematocrit values >55% require a special collection tube for coagulation studies. Please contact the laboratory at [phone] for redraw instructions. INR in Platelet poor plasma by Coagulation assayOrdered By: NON STAFF on 06-18-2024 INR Coag (PPP) [Relative time] 1.3 {INR} Normal [facility] Comment on above: INR Therapeutic Rang e [...] Performed By: #### P T, PTT #### [facility] [address] [place] [address] Partial Thromboplastin Timeo n 06-18-2024 aPTT Coag (Bld) [Time] 31.8 s Normal 25.1-36.5 [facility] Comment on above: Result Comment: A he matocrit value greater than 55% may lead to inaccurate results in coagulation testing. Patients having hematocrit values >55% require a special collection tube for coagulation studies. Please contact the laboratory at [phone] for redraw instructions. PERFORMED BY: [place] [address] PATHOLOGIST DIALYSIS SOCIAL WORKER ANDREIA ARRINGTON M.D. Performed By: #### P T, PTT #### [facility] [address] [place] [address] Prothrombin time (PT)Ordered By: NON STAFF on 06-18-2024 PT Coag (PPP) [Time] 14.4 s High 9.0-12.[address] [facility] Comment on above: A hematocrit value g reater than 55% may lead to inaccurate results in coagulation testing. Patients having hematocrit values >55% require a special collection tube for coagulation studies. Please contact the laboratory at [phone] for redraw instructions. Result Comment: A he matocrit value greater than 55% may lead to inaccurate results in coagulation testing. Patients having hematocrit values >55% require a special collection tube for coagulation studies. Please contact the laboratory at [phone] for redraw instructions. Performed By: #### P T, PTT #### [facility] [address] [id number] [facility] 36on 04-06-2024 36 I reviewed the blood [...] labs as ordered at last visit. Normal [facility] Telephoneon 04-06-2024 Telephone [id number] Sylvia Hanna 1945 F Date Provider Department Center 04/06/2024 ANISHA JACOBS Family History Family history unknown: Yes Normal [facility] Orders Onlyon 03-18-2024 Orders Only [id number] Sylvia Hanna 1945 F Date Provider Department Center 03/18/2024 MITZY BRYANT Family History Family history unknown: Yes Normal [facility] Office Visiton 02-03-2024 Follow-up visit [id number] Sylvia Hanna 1945 F Date Provider Department Center 02/03/2024 ANISHA JACOBS Family History Family history unknown: Yes Level of Service:27058 DC OFFICE/OUTPATIENT ESTABLISHED MOD MDM 30 MIN [facility] Office Visiton 11-12-2023 Follow-up visit [id number] Sylvia Hanna 1945 Provider Department Center 11/12/2023 ANISHA JACOBS Family History Family history unknown: Yes Level of Service:89666 DC OFFICE/OUTPATIENT ESTABLISHED MOD MDM 30-39 MIN [facility] 36on 10-26-2023 36 Her tacrolimus level from 10/16/2023 was 1.4. still very low. I believe she is currently taking tacrolimus (Prograf) 0.5 mg bid. I want her to increase to 1 mg bid and obtain another trough level in 2-3 weeks. [facility] Telephoneon 10-26-2023 Telephone [id number] Sylvia Hanna 1945 Provider Department [place] 10/26/2023 ANISHA JACOBS Family History Family history unknown: Yes [facility] Orders Onlyon 09-30-2023 Orders Only [id number] Sylvia Hanna 1945 Provider Department Center 09/30/2023 SHELBI DENNY Family History Family history unknown: Yes [facility] 36on 08-15-2023 36 Her Tacrolimus troug h level (taken on 08/06/2023, reported 08/14/2023) was low at 1.4. She is currently taking tacrolimus 0.5 mg once a day. Please have her increase it to 0.5 mg twice a day and have a repeat Tacrolimus trough level in 2 weeks. Her target level is around 5-10 ng/ml. [facility] Telephoneon 08-15-2023 Telephone [id number] Sylvia Hanna 1945 Provider Department Center 08/15/2023 ANISHA JACOBS Family History Family history unknown: Yes [facility] Office Visiton 08-07-2023 Follow-up visit [id number] Sylvia Hanna 1945 F Date Provider Department Center 08/07/2023 [facility] Family History Family history unknown: Yes Level of Service:55582 DC OFFICE/OUTPATIENT ESTABLISHED MOD MDM 30-39 MIN Reason for Visit and Comments: Follow-up [495072] - 6 mo f/u no stress test or tacrolimus result as of 08/06 - does she plan on having stress test? Normal [facility] BMPon 04-08-2023 Creatinine [Mass/Vol] 1.3 mg/dL Normal 0.5-1.3 [facility] Comment on above: Performed By: #### 1 [id number], [id number], [id number] ####[facility] [address] [place] [address] Urea nitrogen [Mass/Vol] 36 mg/dL High 5-21 [facility] Comment on above: Performed By: #### 1 [id number], [id number], [id number] ####[facility] [address] [place] [address] Urea nitrogen/Creatinine [Mass ratio] 28 No Units High 10-20 [facility] Comment on above: Performed By: #### 1 [id number], [id number], [id number] ####[facility] [address] [place] [address] Anion gap [Moles/Vol] 11 mmol/L Normal 6-16 [facility] Comment on above: Performed By: #### 1 [id number], [id number], [id number] ####[facility] [address] [place] [address] Calcium [Mass/Vol] 8.6 mg/dL Low 8.9-11.1 [facility] Comment on above: Performed By: #### 1 [id number], 6616791, [id number] ####[facility] [address] [place] [address] Chloride [Moles/Vol] 99 mmol/L Low 101-111 [facility] Comment on above: Performed By: #### 1 [id number], [id number], [id number] ####[facility] [address] [place] [address] CO2 [Moles/Vol] 25 mmol/L Normal 21-31 [facility] Comment on above: Performed By: #### 1 [id number], 0540437, [id number] ####[facility] [address] [place] [address] Glucose [Mass/Vol] 124 mg/dL Normal 55-199 [facility] Comment on above: Result Comment: If t his glucose result represents a fasting glucose, interpretation should refer to the following reference range: 55-99 mg/dL Performed By: #### 1 [id number], [id number], [id number] ####[facility] [address] [place] [address] Potassium [Moles/Vol] 4.1 mmol/L Normal 3.5-5.3 [facility] Comment on above: Performed By: #### 1 [id number], 2572703, [id number] ####[facility] [address] [place] [address] Sodium [Moles/Vol] 131 mmol/L Low 135-145 [facility] Comment on above: Performed By: #### 1 [id number], [id number], [id number] ####[facility] [address] [place] [address] CHEMISTRYOrdered By: SYSTEM SYSTEM on 04-08-2023 Anion gap [Moles/Vol] 11 mmol/L Normal 6 - 16 mEq/L [facility] Remisol Calcium [Mass/Vol] 8.6 mg/dL [...] 42 mL/min/1.73 m2 Low >=59mL/min/ 1.73 m2 [facility] Chem S Glucose [Mass/Vol] 124 mg/dL Normal 55 - 199 mg/dL [facility] Remisol Potassium [Moles/Vol] 4.1 mmol/L Normal 3.5 - 5.3 mmol/L [facility] Remisol Sodium [Moles/Vol] 131 mmol/L Low 135 - 145 mmol/L [facility] Remisol Troponin I.cardiac [Mass/Vol] 11.10 pg/mL Normal 10.10 - 27.10 pg/mL [facility] Remisol Urea nitrogen [Mass/Vol] 36 mg/dL High 5 - 21 mg/dL [facility] Remisol Urea nitrogen/Creatinine [Mass ratio] 28 mg/mg High 10 - 20 [facility] Remisol Troponin I.cardiac [Mass/Vol] 9.70 pg/mL Low 10.10 - 27.10 pg/mL [facility] Remisol Consent for Treatmenton Consent for Treatment [id number]#[id number]:12 7 Normal [facility] Discharge Instructionson Discharge Instructions [id number]#[id number]:127 Normal [facility] ED Clinical Summaryon 2022 ED Clinical Summary (Inserted Image. Tram ble to display) [place] [id number] ED Clinical Summary Person Information Name: SYLVIA HANNA [facility] Age: 77 Years : 1945 Sex: Female Language: Brazilian PCP: SCOT ROGERS CNP Marital Status: Single [...] 04/08/2023 08:56:01 04/08/2023 08:56:01 04/08/2023 08:56:01 ADDRESS: [address] [place] [phone] PHYS DOC NOTES: MEDICAL INFORMATION: Prescriptions Given: [...] With: Address: When: SCOT ROGERS [address] [place] [address] [phone] Business (1) In 3 days DIAGNOSIS: Chest pain; Hyponatremia Normal [facility] ED Note-Physicianon 04-08-20 ED Note-Physician Basic Information Time Seen: Richard Ca DOLaura 04/07/2023 21:20 Chief Complaint pt. presents to [...] and Complexity of Problems Differential Diagnosis: [] MDM Data External documents reviewed: N/A My EKG [...] 6 Hr. (more content not included)... Normal [facility] Comment on above: Result Comment: Elec tronically [...] gland problems. ? Metabolic conditions, such as Letts's disease or syndrome of inappropriate antidiuresis (SIAD). [...] Follow these instructions at home: ? Take dzzv-rds-vqhsnqm and prescription medicines only as told by [...] provider. Document Revised: 05/29/2022 Document Reviewed: 05/29/2022 [employer] Patient Education ? 2022 [employer] Pulmonary Medicine Nonspecific Chest Pain, Adult [...] health care (more content not included)... Normal [facility] ED Patient Summaryon 023 ED Patient Summary (Inserted Image. Tram ble to display) [address] [address] Patient Discharge Instructions Person Information Name: SYLVIA HANNA Age: 77 Years Arrival Date: 04/07/2023 21:18:46 Discharge Diagnosis: Chest pain; Hyponatremia Primary Care Physician: SCOT ORGERS CNP Provider Information Primary Provider: Richard Ca DO Advanced Piano Builder:Montrell The exam and treatment you received in the Emergency Department were for an urgent problem and are not intended as complete care. It is important that you follow up with a doctor, nurse practitioner, or physician?s environmental services assistant for ongoing care. If your symptoms become worse or you do not improve as expected and you are unable to reach your usual health care provider, you should return to the Emergency Department. We are available 24 hours a day. SYLVIA HANNA has been given the following list of patient education materials, prescriptions and follow-up instructions: Follow-up Instructions: With: Address: When: SCOT ROGERS [address] [address] [phone] Business (1) In 3 days In the event that this physician does not participate in your insurance network, please consult with your insurance company to find a nearby participating provider. Patient Education Materials: Hyponatremia; Nonspecific Chest Pain, Adult A MESSAGE TO ALL PATIENTS REGARDING OPIOIDS PRESCRIPTION OPIOIDS: WHAT YOU NEED TO KNOW Prescription opioids can be used to help relieve fhiozqca-ut-tftztq pain and are often prescribed following a [...] be struggling with addiction, tell your health healthcare or medical and ask for guidance or call [facility]?S National Helpline at [phone]. o Source: [facility] (more content not included)... Normal [facility] EMS Documentationon 04-08-20 EMS Documentation Please click on link to see report [id number] 2TSNgr5GaCHh6TMmtCRD0YwPhN QovSCBb TNT8EUAtWPrsKc8GZAT3WvP3Yk 6XoH2sZODljwQuHBLTW53vRCvw ZxW3Wj3KDIE7GGt5Yo1+ICAg ICAgICAgICAgICAgICAgICAgIC AgICAgICAgICAgICAgICAgICAg ICAgICAgICAgICAgICAgICAg ICAgICAgICAgICAgICAgICAgIC XKWgLcOK7qul9OFLx7pmTnOJr6 YGQ8BPltHNWjLVHqGLLdYWXl KONmWC4NNmBlEDSaFOX7IDsvZJ AgXKChsc1SHPZrVTNcQCZ8PQBq MDAwMCBuDQowMDAwMDAxODM3 CLLcWUPoKL9VRcBnGONoDYH8Oh ozHFPfCCCgha2WKOKsRVAlWjZm OCAwMDAwMCBuDQowMDAwMDAy XuhtNGKqESPpXW7CGhQcNKDgEJ TyTMAjPEIlIABetm9NHCObAKWy CuG0RjJrHBYuJSWiFZvjQVFu ORPkMCSaPIWeWZInFY3PVyXtCX OuBUT1XGmgNNNpDRZaer7XDHNq UUZzSvx7CHVsMRMgCRNyDVro YSWrHOSxVpQ7KMEkLGDuYT2PXb WkENYtQBE9FPCbPROxXVKjjq6I NJZhVDFaTFG6ZDSvXBFqGNCg DZauNJOyNRH9XaIvVYXjGITzSZ 4ABdNeQUAsGWO4TyhvSPKgJUGr xl4XXZBuMYTfDHp3ZEFfQPRx HFMiVPqxIXGwXFB7GlE5ONDsUB IlTD5CMoZsZFBuXPB0VmugANTe EPUefn4RUARzAUKcBWahXQXs CJEmOMGvIRgyWPKrZZC6PEZ3HC EoWUMjMV3RQdNbSCDuIMG5Osvz DTFuWPArzn0AGBCsYEDzMme5 UfSsHFAzRUFjHZrxMLUcVHA4BD Z6JZWaFWQeDP6LIwDwDBRxJDhg RJJrYKAfWFOpic1JIZRbCFOm OTkyMiAwMDAwMCBuDQowMDAwMD Y5DMZ6TLKkCHQtKK0WTnIlSQid IVGTVcc7Hu8FWKErAMVKSDTJ G0WsOXUWBrpMOMA4VMT0WJk7IJ DwIPeaItH1Ers4WpCNXUD2Yrc1 ZQcSZWZ2PCs5YBFHN3Y3FGcJ NTZDRTA+TInoLHYjebZ7BnC2Vn ssEp7ezRV5LTLmGwhbX8f6ZIOo KapkN451txViSPmJIMjWDfiO YsTkTaC4cDACMAVTX3Z4E34gZ0 5wLZ9KXTpfM8g8MbuNUBV5HWeF fYvUXkSwU31zQIrtOFTfR7Fz VmwziVcbRVQ1T3FteIN2J4fdu4 7wMBWOSIvDo6fjMXB8L57JErvW IfbKqlCYZ5r6wIIKoJR0Mkzz G3nqFrOhPNJJIFAtDbYiVgqKU1 JCV8dIWh3rDm5+ICAgICAgICAg ICAgICAgICAgICAgICAgICAg ICAgICAgICAgICAgICAgICAgIC AgICAgICAgICAgICAgICAgICAg ICAgICAgICAgICAgICAgICAg ICAgICAgICAgICAgICAgICAgIC AgICAgICAgICAgICAgICAgICAg ICAgICAgICAgICAgICAgICAg ICAgICAgICAgICAgICAgICAgIC AgICAgICAgICAgICAgICAgICAg ICAgICAgICAgICAgICAgICAg ICAgICAgICAgICAgICAgICAgIC AgICAgICAgICAgICAgICAgICAg ICAgICAgICAgICAgICAgICAg ICAgICAgICAgICAgICAgICAgIC AgICAgICAgICAgICAgICAgICAg ICAgICAgICAgICAgICAgICAg ICAgICAgICAgICAgICAgICAgIC AgICAgICAgICAgICAgICAgICAg ICAgICAgICAgICAgICAgICAg ICAgICAgICAgICAgICAgICAgIC AgICAgICAgICAgICAgICAgICAg ICAgICAgICAgICAgICAgICAg VKHBTcH0IUG3rDYnPd4OKI9FJU QCI4RAHp5AALUwHR2xbt0OEPmC E20imPEuULZlSJZuLAYQPv9X iIQsCTT3xL2wYBr7BOFrFxvvIn o0EU4RI551mGqvwvBhMKVfCAIP Nh9YCKjrLE7qFISbLPJdFp5u DGxsLFOsTDGoWwSrMDCAD7Q8eI BxD3KktWVud3xVMg2AUcXeXT5f fa9QIFk1ISAvf5QwBPr9DPtf NlbedRIxSP3QmEP9UXNqW98kRW ifMAPfO0RbQJQrHOyjSeH3Elg+ Wz4Fp8RnJIJrSDm9bBOrFIBw YGDLYFBgYLjCAyLhQAEKUxiwAr U2CxNcLYAq3FCqUJDo76VUTeJk IzUsPTclVxVzdDID7VzsNsXI TKut6IvSQmKQUgQDsaN3YAbwYD UCWcsRUVn1PyIeAlmP2NqOttHn 3Q4XXHECEtdKOwUyMAM2acIf qC4MSZ9xu0AmUGpNBewdLHMhKx gXIwd8Ya7Wm816EI26dvLmYwZy HDDKOBisROKqgQVUs1jhBoGi ANL7FQGmHpdpBMueICUxYA34JY PsHBKBYe9QISEypGWeVICxCIdP H1dAHaqaM0AwRHrDW4sgIqL7 IDggMCBSCj4+Cj4+Oa6MvZBrDJ 6RSFewJf2+RLhxroJxBqvSXx2X TBXwNM5eqn2ZONiEJ7NFa8qx MhRpWVK9ZYNsSsjfHKlgQaljpC KoVB5NaQW0KTAjI04xZUrlXXCz D7ByZMn0Gs3OTFKniFUqPXDp OMkEQ4kGDeznH6PcCVaMO1ftQo Q4DDQ1TYHcKfa+Pgo+XsldM3Tt aPrkGVJuAl4vjGnoBJqzGPPf TB9knrZjlHl+Ws0We3HyMQFjCA x2mEXW3KLm1DPaFKHdYSZ8DBNu dsTNQFtx6RvZpBJtKjUygWVa A7emPJMl44tWRTSxXrsGb8kbOj Ea8TxSPY+GS0HJyuJkFrZndt8O AIiugrUvjRKiJP3UVbRtBA1q pr0BMSq0NOMvn4NuSJz5WKngMw 6tH52oqi5grGjbA8TkUGt+Pg0K AZ4od0NtNRsKMxKhAJRes3Tn CQn9RUdaHt1jW40qlq3laElzA4 EgMQovTEMgMAovTEogMAovTFcg XBhzUCzqSBmzR2InwHJ9XSxq E7AgELf+Zx1BZC3la4DmKBzQXc MzTKKgw7IlCYy1LHeyQx7cR78h mw6taFvdP0ObJA3sMpFoCgim TEMgMAovTEogMAovTFcgMQovTU wcOAzpC6ZujXO7PFpjO1MxUE0p MzMzMwo+Nc6XOA5pl2NgKRyX DmCrLRYfe4WxGHt7COvuKn3aP3 3xso3vzHhnS1YnOV7vILKdPCd+ Vx7IHZ2km4OzIZwZOvUlLGTa x9ObUWk2FVagPd0uV36fuu0mxU uhI4IeIU0xRTK9OIrfXSOeBLtv TEogMAovTFcgMQovTUwgNAov O1PoqVJ7XWeyD2WwYF7dXUJ5UN o+Ni7OYC9yu2YkMEuMOnU4GQQq a0KdLOu6YMzhKUL4awh3ZTbf Emo5TKAnAWXaJB40AWOnJWv0Rr 1MM6LdaRVwoo7NxKKtYXXVI8Zk LQXiwcgpIPnOQ1PsoE0pI6Iw S4FlY1MuuwxiOMTNYuovK46dlm LpMIyqWDA2ACCaRLL6FU8RW9C5 aNRoMHHdrCS0KFj1tjWyEHqf XnFsP3Dpn37jFZzRH0HvAEyvVd e5XsDhJlf7XsXiQen2F45IY4Pz JXmvJnj9TpRgJib6KxByZwa6 B43KA9AnhNFrdoNuEYTzXArjOh FuH7Vvq95OpRSqNHMSK41qWWv+ LjugI3lsNZtmM7A0uRXcNae+ CczuHIrcRPUuJKH7pWShjjz+Pg 7KPU8rf2KyLGuXKxA8FGPur2Ea NDe4YXwdYQL4byb9BBveCrw7 SPOtYRYhQM05PMXrKTj9Af1PN1 ToeIOeqc4AhCZwOCVAY0KjQYUj ekcvUHxFL2AexT9aO4MlW7Et B1LsvoyiKGTZHdanX31bmlAjDW q0MOE1PuZ5WSO2Bg93If4OG1L4 sOYlKDYigEM7VNn4fjVqPBow OxHrE0Vic70hXRqAD1TjmT6rto KdGM24JHprKC2yJIcdCYilXNDg Hv6PkqKkFZPtArWyYDVsZGOe Ah7UpD9toMtpaeM6nMWhQjfsNr XzU8Ilh00tZPo0XBlxXjUjWuPo KWH1JYVxTRW5OTNeGBS9RGxn PvIsCbDmFCX4FDWmZZB0QDRkYZ T6KKtoSY2jVVspTMjaIPJjWz6I eT2lsFslcdA5aPBzCetfRlDt Cj4+Kte7Ai7EWIDrWC62XbetGE 28KmdnAR74XlecBx6UIJRiKY14 JfArGL48WzFnLK15XoZyAl4W j23ikZ9lFeKuQN0OA7E5wzE9sY 3kJLttXSIlEf2NUXBYZr6wLb9+ Xh5HtLOjwY9eNQltMHTmSz8+ Ua4VjLOjGO5FWCT0GRBkAf2+DQ vvtaNkXvuTYq5OVSQfPQZmRsfB Bdk9Bh8YXMOgRg5kqHFfHEkY BR1PZ2MyK76jVCiXG5Unc8Lpck PmkrNGy956gzDnMFziMTSLJOqq DU5mw1MmqmpcK7jpTJ47wZL2 JBvAQ1L6WgX3cPQdI3V4sUYoZx 8Dv6FnfIMfPNGaGNtfCLIDRx9K hSByJI5Qt040Nj7+DQplbmRv IenKZa9ISFjwAPBfHtfYInd3Ps 4BBYUpCo1diZDoQAvDKZ1CV7Ie L35bKXaQM4HXUTY5d9ErrNuk Yo8yNJfER71oYAFtbB1hTUvKNC VqnZd7qKuMV7AbW0jqtNQ6NPhS ZG9i (more content not included)... Normal [facility] EMS Documentation Please click on link to see report Normal [facility] Comment on above: Result Comment: Miss ing Attachment - attachment exceeds size limitation [id number] Can be viewed in source system EMS Documentation [id number]#[id number]:127 Normal [facility] Monitor Recordon 04-08-2023 Monitor Record [id number]#[id number]:127 Normal [facility] Progress Note-Nurseon 2022 Progress Note-Nurse Pt. requesting food, Dr. Ca aware. Pt. given food per verbal order from Dr. Ca. Normal [facility] Troponin 0 Hr.on 04-08-2023 Troponin I.cardiac [Mass/Vol] 9.20 pg/mL Low 10.10-27.10 [facility] Comment on above: Result Comment: The 95% CI (Confidence Interval) PPV (Positive Predictive Value) for myocardial infarction in females is 38 pg/mL, in males 51 pg/mL. The results should be used in conjunction with clinical conditions of myocardial infarction. ([employer] High Sensitivity Troponin I Instructions For Use, Sien, July 2018) Performed By: #### 2 [id number], [id number], [id number], [id number], [id number], [id number] ####[facility] [address] [place] [address] Troponin 3 Hr.on 04-08-2023 Troponin I.cardiac [Mass/Vol] 9.70 pg/mL Low 10.10-27.10 [facility] Comment on above: Result Comment: The 95% CI (Confidence Interval) PPV (Positive Predictive Value) for myocardial infarction in females is 38 pg/mL, in males 51 pg/mL. The results should be used in conjunction with clinical conditions of myocardial infarction. ([employer] High Sensitivity Troponin I Instructions For Use, Sien, July 2018) Performed By: #### 1 [id number] ####[facility] [address] [place] [address] Troponin 6 Hr.on 04-08-2023 Troponin I.cardiac [Mass/Vol] 11.10 pg/mL Normal 10.10-27.10 [facility] Comment on above: Result Comment: The 95% CI (Confidence Interval) PPV (Positive Predictive Value) for myocardial infarction in females is 38 pg/mL, in males 51 pg/mL. The results should be used in conjunction with clinical conditions of myocardial infarction. ([employer] High Sensitivity Troponin I Instructions For Use, SienJuly 2018) Performed By: #### 1 [id number] ####[facility] [address] [place] [address] XR Chest Single Viewon 04-08 XR Chest [...] mGy = na DAP = na Normal [facility] eGFRon 04-08-2023 GFR/1.73 sq M.predicted among non-blacks MDRD (S/P/Bld) [Vol rate/Area] 42 mL/min/1.73 m2 Low >=59 [facility] Comment on above: Order Comment: Order added by Discern Expert. Result Comment: City Editor brennan kidney disease could be indicated at eGFR's of less than 60 mL/min/1.73m2. Kidney failure is indicated at less than 15 mL/min/1.73m2. Performed By: #### 1 [id number] ####[facility] [address] [place] [address] Auto Diffon 04-07-2023 Basophils/100 WBC (Bld) 0.4 % Normal 0.0-2.0 [facility] Comment on above: Order Comment: Order Added by Discern Expert. Performed By: #### 2 878930, 84067935, 5878601, 0255168, 77704921, 82568537 ####[facility] [address] [place] [address] Basophils/Leukocytes Auto (Bld) [Pure # fraction] 0.0 E9/L Normal 0.0-0.2 [facility] Comment on above: Order Comment: Order Added by Discern Expert. Performed By: #### 2 763731, 60454536, 7945549, 0395293, 93705890, 57619188 ####[address] [address] Eosinophils/100 WBC (Bld) 3.0 % Normal 0.0-8.0 [facility] Comment on above: Order Comment: Order Added by Discern Expert. Performed By: #### 2 650396, 15782259, 6892605, 9473065, 53298752, 66275673 ####[address] [address] Eosinophils/Leukocyt es Auto (Bld) [Pure # fraction] 0.2 E9/L Normal 0.0-0.5 [facility] Comment on above: Order Comment: Order Added by Discern Expert. Performed By: #### 2 581910, 76016722, 6565595, 1651416, 59339165, 77855278 ####[address] [address] Lymphocytes/100 WBC (Bld) 15.4 % Normal 14.0-50.0 [facility] Comment on above: Order Comment: Order Added by Discern Expert. Performed By: #### 2 130171, 02115942, 1801337, 4185786, 30497085, 98093500 ####[address] [place] [address] Lymphocytes/Leukocyt es Auto (Bld) [Pure # fraction] 1.1 E9/L Normal 1.0-4.0 [facility] Comment on above: Order Comment: Order Added by Discern Expert. Performed By: #### 2 256402, 77586191, 2753117, 1465842, 91415777, 95591184 ####[address] [place] [address] Monocytes/100 WBC (Bld) 12.8 % Normal 4.0-14.0 [facility] Comment on above: Order Comment: Order Added by Discern Expert. Performed By: #### 2 985433, 10037930, 3761057, 0900016, 30505393, 31729700 ####[facility] [address] [place] [address] Monocytes/Leukocytes Auto (Bld) [Pure # fraction] 0.9 E9/L Normal 0.2-1.0 [facility] Comment on above: Order Comment: Order Added by Dirk Expert. Performed By: #### 2 691190, 63552620, 2881311, 2432359, 35326877, 87417505 ####[address] [place] [address] Neutrophils/100 WBC (Bld) 68.4 % Normal 36.0-75.0 [facility] Comment on above: Order Comment: Order Added by Discern Expert. Performed By: #### 2 375211, 66975354, 2081443, 4049473, 26947241, 73815505 ####[facility] [address] [place] [address] Neutrophils/Leukocyt es Auto (Bld) [Pure # fraction] 5.0 E9/L Normal 2.0-7.5 [facility] Comment on above: Order Comment: Order Added by Dirk Expert. Performed By: #### 2 543507, 32391977, 5117991, 7668450, 72112027, 04125651 ####[facility] [address] [place] [address] BMPon 04-07-2023 Creatinine [Mass/Vol] 1.5 mg/dL High 0.5-1.3 [facility] Comment on above: Performed By: #### 2 634041, 08481157, 0120870, 9426863, 08534202, 15918492 ####[facility] [address] [place] [address] Urea nitrogen [Mass/Vol] 40 mg/dL High 5-21 [facility] Comment on above: Performed By: #### 2 386287, 76068670, 6556156, 9986075, 11176844, 08329642 ####[facility] [address] [place] [address] Urea nitrogen/Creatinine [Mass ratio] 27 No Units High 10-20 [facility] Comment on above: Performed By: #### 2 400649, 76214270, 3634854, 1052383, 62820302, 24491150 ####[facility] [address] [place] [address] Anion gap [Moles/Vol] 11 mmol/L Normal 6-16 [facility] Comment on above: Performed By: #### 2 824870, 82989897, 7336752, 6867883, 59087463, 81263977 ####[facility] [address] [place] [address] Calcium [Mass/Vol] 8.6 mg/dL Low 8.9-11.1 [facility] Comment on above: Performed By: #### 2 318410, 03951779, 0610822, 4252264, 87072851, 81873814 ####[facility] [address] [place] [address] Chloride [Moles/Vol] 96 mmol/L Low 101-111 [facility] Comment on above: Performed By: #### 2 095037, 02490724, 7150212, 2150317, 64873657, 92573503 ####[facility] [address] [place] [address] CO2 [Moles/Vol] 24 mmol/L Normal 21-31 [facility] Comment on above: Performed By: #### 2 931363, 88025834, 7063784, 1261366, 48199031, 98267638 ####[facility] [address] [place] [address] Glucose [Mass/Vol] 139 mg/dL Normal 55-199 [facility] Comment on above: Result Comment: If t his glucose result represents a fasting glucose, interpretation should refer to the following reference range: 55-99 mg/dL Performed By: #### 2 889975, 48160731, 2914002, 2389936, 22805874, 41439303 ####[facility] [address] [place] [address] Potassium [Moles/Vol] 4.4 mmol/L Normal 3.5-5.3 [facility] Comment on above: Performed By: #### 2 790987, 88938882, 0221771, 9178202, 36416307, 34062529 ####[facility] [address] [place] [address] Sodium [Moles/Vol] 127 mmol/L Low 135-145 [facility] Comment on above: Performed By: #### 2 540692, 87230301, 8205972, 6318665, 06219327, 94550113 ####[facility] [address] [place] [address] CBC w/ Auto Diffon 3 Erythrocyte distribution width (RBC) [Ratio] 13.0 % Normal 10.9-14.2 [facility] Comment on above: Performed By: #### 2 714384, 60029072, 6436507, 5341231, 49067739, 96209555 ####[facility] [address] [place] [address] Hematocrit (Bld) [Volume fraction] 38.4 % Normal 34.0-46.0 [facility] Comment on above: Performed By: #### 2 870050, 28738640, 7089841, 4193172, 81306927, 63339348 ####[facility] [address] [place] [address] Hemoglobin (Bld) [Mass/Vol] 12.6 g/dL Normal 12.0-16.0 [facility] Comment on above: Performed By: #### 2 713485, 61566351, 7441745, 0040551, 35254953, 14125399 ####[address] [address] MCH (RBC) [Entitic mass] 27.9 pg Normal 27.0-34.0 [facility] Comment on above: Performed By: #### 2 612561, 42597236, 4241924, 7183293, 61688663, 43675939 ####[address] MCHC (RBC) [Mass/Vol] 32.7 g/dL Normal 31.4-36.0 [facility] Comment on above: Performed By: #### 2 022934, 22433800, 1581542, 9726234, 50609290, 40976337 ####[address] [address] MCV (RBC) [Entitic vol] 85.3 fL Normal 80.0-100.0 [facility] Comment on above: Performed By: #### 2 321821, 10537611, 9568578, 4410486, 21884806, 66906692 ####[address] [address] Platelet mean volume (Bld) [Entitic vol] 7.3 fL Normal 6.4-10.8 [facility] Comment on above: Performed By: #### 2 188585, 28353432, 7890986, 7213527, 44918779, 91455544 ####[address] [address] Platelets (Bld) [#/Vol] 167.0 E9/L Normal 150.0-500.0 [facility] Comment on above: Performed By: #### 2 285156, 59433013, 1175089, 1670681, 18571678, 05420634 ####[address] RBC (Bld) [#/Vol] 4.5 E12/L Normal 4.3-5.9 [facility] Comment on above: Performed By: #### 2 963316, 12331244, 0742861, 5529554, 12185816, 09103620 ####[facility] [address] [place] [address] WBC corrected for nucl RBC Auto (Bld) [#/Vol] 7.3 E9/L Normal 4.0-11.0 [facility] Comment on above: Performed By: #### 2 576395, 52817848, 8674105, 6891013, 52694161, 40825468 ####[facility] [address] [place] [address] CHEMISTRYOrdered By: SYSTEM SYSTEM on 04-07-2023 Anion gap [Moles/Vol] 11 mmol/L Normal 6 - 16 mEq/L [facility] Calcium [Mass/Vol] 8.6 mg/dL Low 8.9 - 11. 1 mg/dL [facility] Chloride [Moles/Vol] 96 mmol/L Low 101 - 1 11 mmol/L [facility] CO2 [Moles/Vol] 24 mmol/L Normal 21 - 31 mmol/L [facility] Creatinine [Mass/Vol] 1.5 mg/dL High 0.5 - 1.3 mg/dL [facility] GFR/1.73 sq M.predicted among non-blacks MDRD (S/P/Bld) [Vol rate/Area] 35 mL/min/1.73 m2 Low >=59mL/min/ 1.73 m2 [facility] [place] S Glucose [Mass/Vol] 139 mg/dL Normal 55 - 199 mg/dL [facility] Potassium [Moles/Vol] 4.4 mmol/L Normal 3.5 - 5.3 mmol/L [facility] Sodium [Moles/Vol] 127 mmol/L Low 135 - 145 mmol/L [facility] Troponin I.cardiac [Mass/Vol] 9.20 pg/mL Low 10.10 - 27.10 pg/mL [facility] Urea nitrogen [Mass/Vol] 40 mg/dL High [...] 2.5 second(s) [facility] Auto Coag HEMATOLOGYOrdered By: WO Funding SYSTEM on 04-07-2023 Basophils/100 WBC (Bld) 0.4 [...] Coag (PPP) [Time] 27.1 second(s) Normal 25.1-36.5 [facility] Comment on above: Result Comment: Para meter [...] the same coagulation reagent and instrumentation as [facility] [place] Currently there are no coagulation studies available worldwide for children to 14 days, and no normal ranges. Heparin therapeutic range (represented by Anti-Factor Xa activity of 0.2 - 0.4 U/mL) corresponds to PTT of 56.6 - 109.0 sec. Performed By: #### 2 937241, 59460774, 9469791, 4756813, 15844248, 67483417 ####[facility] [address] [place] [address] INR Coag (PPP) [Relative time] 1.2 {INR} Invalid Interpretation Code [facility] Comment on above: Result Comment: INR results are specifically intended to assess patients stabilized on long-term Anticoagulation therapy suggested INR?s ?Less Intensive Anticoagulation? 2.0 ? 3.0 Conventional Range 3.0 ? 4.5 Performed By: #### 2 247296, 25765729, 5304266, 2114040, 47348932, 46480401 ####[facility] [address] [place] [address] PT Coag (PPP) [Time] 12.9 second(s) High 9.4-12.5 [facility] Comment on above: Result Comment: 15 d [...] the same coagulation reagent and instrumentation [place] [facility] [place] Currently there are no coagulation studies available worldwide for children to 14 days, and no normal ranges. Performed By: #### 2 731349, 18063663, 9651062, 2770477, 30317734, 31040983 ####[facility] [address] [place] [address] Pre-Arrival Noteon 3 Pre-Arrival Note Pre-Arrival Summary Name: , [facility] Current Date: 04/07/2023 21:19:11 EDT Gender: Female Date of : Age: 77 Pre-Arrival Type: EMS ETA: 04/07/2023 21:15:00 EDT Primary Care Physician: Presenting Problem: chest pain Pre-Arrival User: Natalia Fischer RN Referring Source: Location: Completion Date/Time: 04/07/2023 21:06:00 [facility] Emergency Department Pre-Hospital Report Form _ Vital Signs: Pre-Hospital Report: Treatment in Route: Response to Treatment: Misc. Issues: Normal [facility] eGFRon 04-07-2023 GFR/1.73 sq M.predicted among non-blacks MDRD (S/P/Bld) [Vol rate/Area] 35 mL/min/1.73 m2 Low >=59 [facility] Comment on above: Order Comment: Order added by Discern Expert. Result Comment: City Editor brennan kidney disease could be indicated at eGFR's of less than 60 mL/min/1.73m2. Kidney failure is indicated at less than 15 mL/min/1.73m2. Performed By: #### 2 311056, 21444309, 1903764, 5372191, 08310750, 27531926 ####[address] [place] [address] [facility] Normal [facility] Comment on above: Result Comment: Nega tive for Flu A protein angiten. Infection due to Flu A cannot be ruled out. Flu A angiten in the sample may be below the detection limit of the test. Performed By: #### E RUR #### [facility] [address] [address] [address] Hardeep Rivera [facility] SEE BELOW Normal [facility] Comment on above: Result Comment: Nega tive for Flu B protein antigen. Infection due to Flu B cannot be ruled out. Flu B antigen in the sample may be below the detection limit of the test. Performed By: #### E RUR #### [facility] [address] [address] [address] Hardeep Rivera INFLUENZA A AG Negative Normal NEGATIVE SEE COMMENT [facility] Comment on above: Performed By: #### E RUR #### [facility] [address] [address] [address] Hardeep Rivera INFLUENZA B AG Negative Normal NEGATIVE SEE COMMENT [facility] Comment on above: Performed By: #### E RUR #### [facility] [address] [address] [address] Hardeep Rivera SYMPTOMATIC COVID-19 ANTIGEN on 03-05-2023 EUA Statement SEE BELOW Normal [facility] Comment on above: Result Comment: This [...] revoked sooner. Performed By: #### C VDAGS ####[facility] [id number] Hardeep Rivera SARS-CoV-2 (COVID-19) RNA ULICES+probe Ql (Unsp spec) Positive Abnormal NEGATIVE [facility] Comment on above: Performed By: #### C VDAGS ####[facility] [id number] Hardeep Rivera FK506 (TACROLIMUS) WHOLE BLO ODon 02-28-2023 Tacrolimus (FK506), Blood 5.8 ng/mL Normal 2.0-20.0 [facility] Comment on above: Result Comment: Trou gh (immediately following transplant) 15.0 . Trough (steady state, 2 weeks or more after transplant): 3.0 - 8.0 . Performed by LC-MS/MS technology. Performed By: #### F K506T ####[facility] [address] [address]Dr. Hardeep Rivera CBC AUTO DIFFon 02-14-2023 BASO # 0.0 103/ul Normal 0.0-0.1 [facility] Comment on above: Performed By: #### HARI OLSONRO #### [facility] [address] [place] [address] Dr. Hardeep Rivera Basophils/100 WBC (Bld) 0.5 % Normal 0.2-2.0 [facility] Comment on above: Performed By: #### HARI OLSONRO #### [facility] [address] [place] [address] Dr. Hardeep Rivera EO # 0.2 103/ul Normal 0.0-0.7 [facility] Comment on above: Performed By: #### HARI OLSONRO #### [facility] [address] [place] [address] Dr. Hardeep Rivera Eosinophils/100 WBC (Bld) 3.5 % Normal 0.9-7.0 [facility] Comment on above: Performed By: #### HARI OLSONRO #### [facility] [address] [place] [address] Dr. Hardeep Rivera Erythrocyte distribution width (RBC) [Ratio] 12.3 % Normal 11.0-15.0 [facility] Comment on above: Performed By: #### HARI OLSONRO #### [facility] [address] [place] [address] Dr. Hardeep Rivera Hematocrit (Bld) [Volume fraction] 38.7 % Normal 36.0-48.0 [facility] Comment on above: Performed By: #### HARI OLSONRO #### [facility] [address] [place] [address] Dr. Hardeep Rivera Hemoglobin (Bld) [Mass/Vol] 12.6 g/dL Normal 12.0-16.0 [facility] Comment on above: Performed By: #### HARI OLSONRO #### [facility] [address] [place] [address] Dr. Hardeep Rivera IG # 0.03 10e3/ul Normal 0.00-0.03 [facility] Comment on above: Performed By: #### HARI OLSONRO #### [facility] [address] [place] [address] Dr. Hardeep Rivera IG % 0.5 % Normal 0.0-0.5 [facility] Comment on above: Performed By: #### HARI OLSONRO #### [facility] [address] [place] [address] Dr. Hardeep Rivera LYMPH # 0.8 103/ul Critically low 1.2-3.8 [facility] Comment on above: Performed By: #### HARI OLSONRO #### [facility] [address] [place] [address] Dr. Hardeep Rivera Lymphocytes/100 WBC (Bld) 13.2 % Critically low 20.5-60.0 [facility] Comment on above: Performed By: #### HARI OLSONRO #### [facility] [address] [place] [address] Dr. Hardeep Rivera MANUAL DIFF REQ NO Normal [facility] Comment on above: Performed By: #### HARI OLSONRO #### [facility] [address] [place] [address] Dr. Hardeep Rivera MCH (RBC) [Entitic mass] 28.3 pg Normal 26.7-34.0 [facility] Comment on above: Performed By: #### HARI OLSONRO #### [facility] [address] [place] [address] Dr. Hardeep Rivera MCHC (RBC) [Mass/Vol] 32.6 g/dL Normal 29.9-35.2 [facility] Comment on above: Performed By: #### Deedee PINON UMICRO #### [facility] [address] [place] [address] Dr. Hardeep Rivera MCV (RBC) [Entitic vol] 87.0 fL Normal 81.0-99.0 [facility] Comment on above: Performed By: #### Deedee PINON UMICRO #### [facility] [address] [place] [address] Dr. Hardeep Rivera MONO # 0.8 103/ul Normal 0.3-0.8 [facility] Comment on above: Performed By: #### Deedee PINON UMICRO #### [facility] [address] [place] [address] Dr. Hardeep Rivera Monocytes/100 WBC (Bld) 12.9 % Critically high 1.7-12.0 [facility] Comment on above: Performed By: #### Deedee PINON UMICRO #### [facility] [address] [place] [address] Dr. Hardeep Rivera NEUT # 4.4 103/ul Normal 1.4-6.5 [facility] Comment on above: Performed By: #### Deedee PINON UMICRO #### [facility] [address] [place] [address] Dr. Hardeep Rivera Neutrophils/100 WBC (Bld) 69.4 % Normal 43.0-75.0 [facility] Comment on above: Performed By: #### Deedee PINON UMICRO #### [facility] [address] [place] [address] Dr. Hardeep Rivera Platelet mean volume (Bld) [Entitic vol] 9.0 fL Critically low 9.5-13.5 [facility] Comment on above: Performed By: #### Deedee PINON UMICRO #### [facility] [address] [place] [address] Dr. Hardeep Rivera PLT 205 103/ul Normal 150-450 [facility] Comment on above: Performed By: #### Deedee PINON UMICRO #### [facility] [address] [place] [address] Dr. Hardeep Rivera RBC 4.45 106/ul Normal 4.20-5.40 [facility] Comment on above: Performed By: #### RANDALL OLSON #### [facility] [address] [address] [address] Hardeep Rivera WBC 6.3 103/ul Normal 4.0-11.0 [facility] Comment on above: Performed By: #### RANDALL OLSON #### [facility] [address] [address] [address] HEAD WO CONon [...] CAMERON NELSON Date: 2023-02-14 15:46 Normal [facility] URINE PROFILEon 3 Bilirubin Ql (U) Negative Normal NEGATIVE [facility] Comment on above: Performed By: #### RANDALL OLSON #### [facility] [address] [place], [place] [address] Dr. Hardeep Rivera Clarity (U) CLEAR Normal CLEAR [facility] Comment on above: Performed By: #### Deedee PINON UMICRO #### [facility] [address] [address] [address] Hardeep Rivera Color (U) LT. YELLOW Normal YELLOW [facility] Comment on above: Performed By: #### Deedee PINON UMICRO #### [facility] [address] [place] [address] Dr. Hardeep Rivera ERUAHD A micrscopic examina tion will be performed if indicated. Normal [facility] Comment on above: Performed By: #### Deedee PINON UMICRO #### [facility] [address] [place] [address] Dr. Hardeep Rivera Glucose Ql (U) Negative Normal NEGATIVE [facility] Comment on above: Performed By: #### Deedee PINON UMICRO #### [facility] [address] [place] [address] Dr. Hardeep Rivera Hemoglobin Ql (U) TRACE-INTACT Abnormal NEGATIVE [facility] Comment on above: Performed By: #### Deedee PINON UMICRO #### [facility] [address] [place] [address] Dr. Hardeep Rivera Ketones Ql (U) Negative Normal NEGATIVE [facility] Comment on above: Performed By: #### Deedee PINON UMICRO #### [facility] [address] [place] [address] Dr. Hardeep Rivera LEUKOCYTES Negative Normal NEGATIVE [facility] Comment on above: Performed By: #### Deedee PINON UMICRO #### [facility] [address] [place] [address] Dr. Hardeep Rivera Nitrite Ql (U) Negative Normal NEGATIVE [facility] Comment on above: Performed By: #### Deedee PINON UMICRO #### [facility] [address] [place] [address] Dr. Hardeep Rivera pH (U) 7.0 [pH] Normal 5-9 [facility] Comment on above: Performed By: #### Deedee PINON UMICRO #### [facility] [address] [place] [address] Dr. Hardeep Rivera Protein (U) [Mass/Vol] 30 mg/dL Abnormal NEGATIVE/ TRACE [facility] Comment on above: Performed By: #### RANDALL OLSON #### [facility] [address] [address] [address] Hardeep Rivera SPEC GRAVITY 1.010 Normal 1.005-<=1.0 25 [facility] Comment on above: Performed By: #### RANDALL OLSON #### [facility] [address] [place] [address] Dr. Hardeep Rivera UR MICRO IND INDICATED Normal [facility] Comment on above: Performed By: #### RANDALL OLSON #### [facility] [address] [place] [address] Dr. Hardeep Rivera Urobilinogen Qn (U) 0.2 {Kevon'U}/dL Normal 0.2 - 1. 0 [facility] Comment on above: Performed By: #### RANDALL OLSON #### [facility] [address] [place] [address] Dr. Hardeep Rivera PROF 14(COMP METB)on 023 Albumin [Mass/Vol] 3.5 g/dL Normal 3.4-5.0 [facility] Comment on above: Performed By: #### H STRONATHANIEL, CMP, TSH ####[facility] [address] [address]Dr. Hardeep Rivera Albumin/Globulin [Mass ratio] 1.2 {ratio} Normal [facility] Comment on above: Performed By: #### H STROPN, CMP, TSH ####[facility] [address] [address]Dr. Hardeep Rivera ALP [Catalytic activity/Vol] 153 U/L Critically high 46-116 [facility] Comment on above: Performed By: #### H STROPN, CMP, TSH ####[facility] [address] [address]Dr. Hardeep Rivera ALT [Catalytic activity/Vol] 21 U/L Normal 14-59 [facility] Comment on above: Performed By: #### H STROPN, CMP, TSH ####[facility] [address] [address]Dr. Hardeep Rivera Anion gap [Moles/Vol] 9.3 mmol/L Normal [facility] Comment on above: Performed By: #### H STROPN, CMP, TSH ####[facility] [address] [address]Dr. Hardeep Rivera AST [Catalytic activity/Vol] 23 U/L Normal 15-37 [facility] Comment on above: Performed By: #### H STROPN, CMP, TSH ####[facility] [address] [address]Dr. Hardeep Rivera Bilirubin [Mass/Vol] 0.6 mg/dL Normal 0.2-1.0 [facility] Comment on above: Performed By: #### H STROPN, CMP, TSH ####[facility] [address] [place], [place] [address]Dr. Hardeep Rivera Calcium [Mass/Vol] 8.4 mg/dL Critically low 8.5-10.1 [facility] Comment on above: Performed By: #### H STROPN, CMP, TSH ####[facility] [address] [place], [place] [address]Dr. Hardeep Rivera Chloride [Moles/Vol] 96 mmol/L Critically low 98-107 [facility] Comment on above: Performed By: #### H STROPN, CMP, TSH ####[facility] [address] [place], [place] [address]Dr. Hardeep Rivera CO2 [Moles/Vol] 29.3 mmol/L Normal 21.0-32.0 [facility] Comment on above: Performed By: #### H STROPN, CMP, TSH ####[facility] [address] [address]Dr. Hardeep Rivera Creatinine [Mass/Vol] 1.16 mg/dL Critically high 0.55-1.02 [facility] Comment on above: Performed By: #### H STROPN, CMP, TSH ####[facility] [address] [address]Dr. Hardeep Rivera EGFR-AF NIUEAN 55 mL/min/1.73m2 Critically low >=60 [facility] Comment on above: Performed By: #### H STROPN, CMP, TSH ####[facility] [address] [address]. Hardeep Rivera EGFR-NON AF NIUEAN 45 mL/min/1.73m2 Critically low >=60 [facility] Comment on above: Performed By: #### H STROPN, CMP, TSH ####[facility] [address] [address]Dr. Hardeep Rivera Globulin (S) [Mass/Vol] 2.9 g/dL Normal [facility] [facility] Comment on above: Performed By: #### H STROPN, CMP, TSH ####[facility] [address] [place] [address]Dr. Preethiarabella Rivera Glucose [Mass/Vol] 105 mg/dL Normal 74-106 [facility] Comment on above: Performed By: #### H STROPN, CMP, TSH ####[facility] Ypmt[address]xjx[address] [place] [address]Dr. Hardeep Rivera Potassium [Moles/Vol] 4.6 mmol/L Normal 3.5-5.1 [facility] Comment on above: Performed By: #### H STROPN, CMP, TSH ####[facility] [address] [place] [address]Dr. Hardeep Rivera Protein [Mass/Vol] 6.4 g/dL Normal 6.4-8.2 [facility] [place] Comment on above: Performed By: #### H STROPN, CMP, TSH ####[facility] [address] [place] [address]Dr. Hardeep Rivera Sodium [Moles/Vol] 130 mmol/L Critically low 136-145 [facility] Comment on above: Performed By: #### H STROPN, CMP, TSH ####[facility] [address]ternvomq[address] [place] [address]Dr. Hardeep Rivera Urea nitrogen [Mass/Vol] 27.0 mg/dL Critically high 7.0-18.0 [facility] Comment on above: Performed By: #### H STROPN, CMP, TSH ####[facility] Jrjtwhgxdb[address] [place] [address]Dr. Hardeep Rivera Urea nitrogen/Creatinine [Mass ratio] 23.3 mg/mg Normal [facility] Comment on above: Performed By: #### H STROPN, CMP, TSH ####[facility] [address] [place] [address]Dr. Hardeep Rivera PROTIMEon 02-14-2023 INR Coag (PPP) [Relative time] 1.07 {INR} Normal [facility] Comment on above: Performed By: #### P T, PTT ####[facility] [address] [place] [address]Dr. Hardeep Rivera INR GUIDELINES SEE BELOW Normal [facility] Comment on above: Result Comment: EDMUND RED INR: 2.0 - 3.0 CONDITIONS NOT LISTED BELOW 2.5 - 3.5 FOR PROSTHETIC HEART VALVE REPLACEMENT 2.5 - 3.5 RECURRENT THROMBOSIS Performed By: #### P T, PTT ####[facility] [address] [place], [place] [address]Dr. Hardeep Rivera PT Coag (PPP) [Time] 11.3 s Normal 9.0-11.6 [facility] Comment on above: Performed By: #### P T, PTT ####[facility] [address] [place], [place] [address]Dr. Hardeep Miguel PTTon 02-14-2023 aPTT Coag (Bld) [Time] 29.1 s Normal 22.3-36.2 [facility] Comment on above: Performed By: #### P T, PTT ####[facility] [address] [place], [place] [address]Dr. Hardeep Rivera TROPONIN, HIGH SENSITIVITYon 02-14-2023 HSTROP 10.4 pg/mL Normal 4.0-51.3 [facility] Comment on above: Result Comment: CUT- OFF POINTS HAVE BEEN ESTABLISHED BASED ON THE FOURTH UNIVERSAL DEFINITIONS OF MYOCARDIAL INFARCTION. THE UPPER REFERENCE LIMIT (URL) OF TROPONIN, DEFINED THE 99TH PERCENTILE OF cTnI DISTRIBUTION IN A REFERENCE POPULATION, HAS BEEN CONFIRMED THE DECISION THRESHOLD FOR MS DIAGNOSIS. Performed By: #### H GLADIS SCOTT, TSH ####[facility] [address] [place] [address]Dr. Hardeep Rivera TSHon 02-14-2023 TSH 1.237 uIU/mL Normal 0.358-3.740 [facility] Comment on above: Performed By: #### H GLADIS SCOTT, TSH ####[facility] [address] [place] [id number]. Hardeep Rivera URINE MICROSCOPIC ONLYon BACTERIA NONE SEEN Normal NONE SEEN [facility] Comment on above: Performed By: #### Deedee PINON UMICRO #### [facility] [address] [place] [address] Dr. Hardeep Rivera Bacteria identified Cx Nom (U) NOT INDICATED Normal [facility] Comment on above: Performed By: #### Deedee PINON UMICRO #### [facility] [address] [place] [address] Dr. Hardeep Rivera CAST NONE SEEN Normal NONE SEEN [facility] Comment on above: Performed By: #### Deedee PINON UMICRO #### [facility] [address] [place] [address] Dr. Hardeep Rivera Crystals LM Nom (Urine sed) NONE SEEN Normal NONE SEEN [facility] Comment on above: Performed By: #### Deedee PINON UMICRO #### [facility] [address] [place] [address] Dr. Hardeep Rivera Epithelial cells LM Ql (Urine sed) NONE SEEN Normal NONE SEEN /RARE [facility] Comment on above: Performed By: #### Deedee PINON UMICRO #### [facility] [address] [place] [address] Dr. Hardeep Rivera MUCOUS NONE SEEN Normal NONE SEEN [facility] Comment on above: Performed By: #### Deedee PINON UMICRO #### [facility] [address] [place] [address] Dr. Hardeep Rivera RBC 0-2 Normal 0-2 [facility] Comment on above: Performed By: #### RANDALL OLSON #### [facility] [address] [address] [address] Hardeep Rivera WBC NONE SEEN Normal NONE SEEN [facility] Comment on above: Performed By: #### E RANDALL PINON #### [facility] [address] [address] [address] Hardeep Rivera XR CHEST 1 Von [...] JAZLYN DUBOSE Date: 2023-02-14 15:50 Normal [facility] FK506 (TACROLIMUS) WHOLE BLO ODon 02-13-2023 Tacrolimus (FK506), Blood 1.4 ng/mL Critically low 2.0-20.0 [facility] Comment on above: Result Comment: Trou gh (immediately following transplant) 15.0 . Trough (steady state, 2 weeks or more after transplant): 3.0 - 8.0 . Performed by LC-MS/MS technology. Performed By: #### Deedee RUR #### [facility] [address] [address] [address] Hardeep Rivera PROF 14(COMP METB)on 023 Albumin [Mass/Vol] 3.5 g/dL Normal 3.4-5.0 [facility] Comment on above: Performed By: #### C MP ####[facility] [address] [place] [address]DrLaura Rivera Albumin/Globulin [Mass ratio] 1.2 {ratio} Normal [facility] Comment on above: Performed By: #### C MP ####[facility] [address] [place] [address]DrLaura Rivera ALP [Catalytic activity/Vol] 149 U/L Critically high 46-116 [facility] Comment on above: Performed By: #### C MP ####[facility] [address] [place], [place] [address]Ki. Hardeep Rivera ALT [Catalytic activity/Vol] 19 U/L Normal 14-59 [facility] Comment on above: Performed By: #### C MP ####[facility] [address] [place], [place] [address]Qs. Hardeep Rivera Anion gap [Moles/Vol] 11.7 mmol/L Normal [facility] Comment on above: Performed By: #### C MP ####[facility] [address] [place] [id number]. Hardeep Rivera AST [Catalytic activity/Vol] 27 U/L Normal 15-37 [facility] Comment on above: Performed By: #### C MP ####[facility] [address] [place] [address]Dr. Hardeep Rivera Bilirubin [Mass/Vol] 0.6 mg/dL Normal 0.2-1.0 [facility] Comment on above: Performed By: #### C MP ####[facility] [address] [place] [address]Dr. Hardeep Rivera Calcium [Mass/Vol] 8.5 mg/dL Normal 8.5-10.1 [facility] Comment on above: Performed By: #### C MP ####[facility] [address]cld[address] [place] [id number]. Hardeep Rivera Chloride [Moles/Vol] 96 mmol/L Critically low 98-107 [facility] Comment on above: Performed By: #### C MP ####[facility] [address] [place] [id number]. Hardeep Rivera CO2 [Moles/Vol] 28.1 mmol/L Normal 21.0-32.0 [facility] Comment on above: Performed By: #### C MP ####[facility] [address]sb[address] [place] [id number]. Hardeep Rivera Creatinine [Mass/Vol] 1.24 mg/dL Critically high 0.55-1.02 [facility] Comment on above: Performed By: #### C MP ####[facility] [address]trf[address] [place], [place] [address]Au. Hardeep Rivera EGFR-AF NIUEAN 51 mL/min/1.73m2 Critically low >=60 [facility] Comment on above: Performed By: #### C MP ####[facility] [address] [place], [place] [address]Ka. Hardeep Rivera EGFR-NON AF NIUEAN 42 mL/min/1.73m2 Critically low >=60 [facility] Comment on above: Performed By: #### C MP ####[facility] [address] [place] [address]Dr. Hardeep Rivera Globulin (S) [Mass/Vol] 3.0 g/dL Normal [facility] Comment on above: Performed By: #### C MP ####[facility] [address]xb[address] [place] [address]Dr. Hardeep Rivera Glucose [Mass/Vol] 141 mg/dL Critically high 74-106 [facility] Comment on above: Performed By: #### C MP ####[facility] [address]jw[address] [place] [id number]. Hardeep Rivera Potassium [Moles/Vol] 4.8 mmol/L Normal 3.5-5.1 [facility] Comment on above: Performed By: #### C MP ####[facility] [address] [place] [id number]. Hardeep Rivera Protein [Mass/Vol] 6.5 g/dL Normal 6.4-8.2 [facility] Comment on above: Performed By: #### C MP ####[facility] [address]qsroy[address] [place] [id number]. Hardeep Rivera Sodium [Moles/Vol] 131 mmol/L Critically low 136-145 Th [facility] Comment on above: Performed By: #### C MP ####[facility] [address]gtapht[address] [place] [id number]. Hardeep Rivera Urea nitrogen [Mass/Vol] 29.0 mg/dL Critically high 7.0-18.0 [facility] Comment on above: Performed By: #### C MP ####[facility] Tbveyjspcm[address] [place] [id number]. Hardeep Rivera Urea nitrogen/Creatinine [Mass ratio] 23.4 mg/mg Normal [facility] Comment on above: Performed By: #### C MP ####[facility] [address] [place] [id number] Rivera BNPon 01-09-2023 Natriuretic peptide B (Bld) [Mass/Vol] 336.0 pg/mL Normal <=1,800.0 [facility] Comment on above: Performed By: #### C MP, TSH, BNP, T7 ####[facility] [address] [place] [address]Dr. Hardeep Rivera CBC AUTO DIFFon 01-09-2023 BASO # 0.0 103/ul Normal 0.0-0.1 [facility] Comment on above: Performed By: #### C BC #### [facility] [address] [place] [address] Dr. Hardeep Rivera Basophils/100 WBC (Bld) 0.4 % Normal 0.2-2.0 [facility] Comment on above: Performed By: #### C BC #### [facility] [address] [place] [address] Dr. Hardeep Rivera EO # 0.3 103/ul Normal 0.0-0.7 [facility] Comment on above: Performed By: #### C BC #### [facility] [address] [place] [address] Dr. Hardeep Rivera Eosinophils/100 WBC (Bld) 4.4 % Normal 0.9-7.0 [facility] Comment on above: Performed By: #### C BC #### [facility] [address] [place] [address] Dr. Hardeep Rivera Erythrocyte distribution width (RBC) [Ratio] 12.3 % Normal 11.0-15.0 [facility] Comment on above: Performed By: #### C BC #### [facility] [address] [place] [address] Dr. Hardeep Rivera Hematocrit (Bld) [Volume fraction] 43.3 % Normal 36.0-48.0 [facility] Comment on above: Performed By: #### C BC #### [facility] [address] [place] [address] Dr. Hardeep Rivera Hemoglobin (Bld) [Mass/Vol] 13.5 g/dL Normal 12.0-16.0 [facility] Comment on above: Performed By: #### C BC #### [facility] [address] [place] [address] Dr. Hardeep Rivera IG # 0.02 10e3/ul Normal 0.00-0.03 [facility] Comment on above: Performed By: #### C BC #### [facility] [address] [place] [address] Dr. Hardeep Rivera IG % 0.3 % Normal 0.0-0.5 [facility] Comment on above: Performed By: #### C BC #### [facility] [address] [place] [address] Dr. Hardeep Rivera LYMPH # 1.1 103/ul Critically low 1.2-3.8 [facility] Comment on above: Performed By: #### C BC #### [facility] [address] [place] [address] Dr. Hardeep Rivera Lymphocytes/100 WBC (Bld) 16.0 % Critically low 20.5-60.0 [facility] Comment on above: Performed By: #### C BC #### [facility] [address] [place] [address] Dr. Hardeep Rivera MANUAL DIFF REQ NO Normal [facility] Comment on above: Performed By: #### C BC #### [facility] [address] [place] [address] Dr. Hardeep Rivera MCH (RBC) [Entitic mass] 28.4 pg Normal 26.7-34.0 [facility] Comment on above: Performed By: #### C BC #### [facility] [address] [place] [address] Dr. Hardeep Rivera MCHC (RBC) [Mass/Vol] 31.2 g/dL Normal 29.9-35.2 [facility] Comment on above: Performed By: #### C BC #### [facility] [address] [address] [address] Hardeep Rivera MCV (RBC) [Entitic vol] 91.0 fL Normal 81.0-99.0 [facility] Comment on above: Performed By: #### C BC #### [facility] [address] [address] [address] Hardeep Rivera MONO # 1.0 103/ul Critically high 0.3-0.8 [facility] Comment on above: Performed By: #### C BC #### [facility] [address] [address] [address] Hardeep Rivera Monocytes/100 WBC (Bld) 14.7 % Critically high 1.7-12.0 [facility] Comment on above: Performed By: #### C BC #### [facility] [address] [address] [address] Hardeep Rivera NEUT # 4.4 103/ul Normal 1.4-6.5 [facility] Comment on above: Performed By: #### C BC #### [facility] [address] [address] [address] Hardeep Rivera Neutrophils/100 WBC (Bld) 64.2 % Normal 43.0-75.0 [facility] Comment on above: Performed By: #### C BC #### [facility] [address] [address] [address] Hardeep Rivera Platelet mean volume (Bld) [Entitic vol] 9.5 fL Normal 9.5-13.5 [facility] Comment on above: Performed By: #### C BC #### [facility] [address] [address] [address] Hardeep Rivera PLT 238 103/ul Normal 150-450 [facility] Comment on above: Performed By: #### C BC #### [facility] [address] [address] [address] Hardeep Rivera RBC 4.76 106/ul Normal 4.20-5.40 [facility] Comment on above: Performed By: #### C BC #### [facility] [address] [address] [address] Hardeep Rivera WBC 6.8 103/ul Normal 4.0-11.0 [facility] Comment on above: Performed By: #### C BC #### [facility] [address] [address] [address] Hardeep Rivera FREE THYROXINE INDEX T7on FTI 3.96 Normal 1.30-4.50 [facility] Comment on above: Performed By: #### C MP, TSH, BNP, T7 ####[facility] [address] [place] [address]DrLaura Rivera T3U 35.0 % Normal 30.0-39.0 [facility] Comment on above: Performed By: #### C MP, TSH, BNP, T7 ####[facility] [address]xs[address] [place] [address]DrLaura Rivera T4 [Mass/Vol] 11.30 ug/dL Normal 4.80-13.90 [facility] Comment on above: Performed By: #### C MP, TSH, BNP, T7 ####[facility] [address]jtmov[address] [place] [address]DrLaura Rivera PROF 14(COMP METB)on 023 Albumin [Mass/Vol] 3.9 g/dL Normal 3.4-5.0 [facility] Comment on above: Performed By: #### C MP, TSH, BNP, T7 ####[facility] [address]oqm[address] [place] [address]DrLaura Rivera Albumin/Globulin [Mass ratio] 1.2 {ratio} Normal [facility] Comment on above: Performed By: #### C MP, TSH, BNP, T7 ####[facility] Ab[address]pe[address] [place] [address]DrLaura Rivera ALP [Catalytic activity/Vol] 151 U/L Critically high 46-116 [facility] Comment on above: Performed By: #### C MP, TSH, BNP, T7 ####[facility] [address]nc[address] [place] [address]Dr. Hardeep Rivera ALT [Catalytic activity/Vol] 30 U/L Normal 14-59 [facility] Comment on above: Performed By: #### C MP, TSH, BNP, T7 ####[facility] [address]vdfpg[address] [place] [address]Dr. Hardeep Rivera Anion gap [Moles/Vol] 15.6 mmol/L Normal [facility] Comment on above: Performed By: #### C MP, TSH, BNP, T7 ####[facility] [address] [place], [place] [address]Dr. Hardeep Rivera AST [Catalytic activity/Vol] 23 U/L Normal 15-37 [facility] Comment on above: Performed By: #### C MP, TSH, BNP, T7 ####[facility] [address] [place], [place] [address]Dr. Hardeep Rivera Bilirubin [Mass/Vol] 0.7 mg/dL Normal 0.2-1.0 [facility] Comment on above: Performed By: #### C MP, TSH, BNP, T7 ####[facility] [address] [place], [place] [address]Dr. Hardeep Rivera Calcium [Mass/Vol] 9.0 mg/dL Normal 8.5-10.1 [facility] Comment on above: Performed By: #### C MP, TSH, BNP, T7 ####[facility] [address] [place], [place] [address]Dr. Hardeep Rivera Chloride [Moles/Vol] 97 mmol/L Critically low 98-107 [facility] Comment on above: Performed By: #### C MP, TSH, BNP, T7 ####[facility] Uh[address]jdzkle[address] [place] [address]Dr. Hardeep Rivera CO2 [Moles/Vol] 26.1 mmol/L Normal 21.0-32.0 [facility] Comment on above: Performed By: #### C MP, TSH, BNP, T7 ####[facility] [address] [place], [place] [address]Dr. Hardeep Rivera Creatinine [Mass/Vol] 1.78 mg/dL Critically high 0.55-1.02 [facility] Comment on above: Performed By: #### C MP, TSH, BNP, T7 ####[facility] [address] [place] [address]Dr. Hardeep Rivera EGFR-AF NIUEAN 33 mL/min/1.73m2 Critically low >=60 [facility] Comment on above: Performed By: #### C MP, TSH, BNP, T7 ####[facility] [address] [place] [address]Dr. Preethilan Rivera EGFR-NON AF NIUEAN 28 mL/min/1.73m2 Critically low >=60 [facility] Comment on above: Performed By: #### C MP, TSH, BNP, T7 ####[facility] [address]xz[address] [place] [address]Dr. Hardeep Rivera Globulin (S) [Mass/Vol] 3.3 g/dL Normal [facility] Comment on above: Performed By: #### C MP, TSH, BNP, T7 ####[facility] [address] [place] [address]Dr. Hardeep Rivera Glucose [Mass/Vol] 127 mg/dL Critically high 74-106 T [facility] Comment on above: Performed By: #### C MP, TSH, BNP, T7 ####[facility] [address]xejdg[address] [place] [address]Dr. Hardeep Rivera Potassium [Moles/Vol] 3.7 mmol/L Normal 3.5-5.1 [facility] Comment on above: Performed By: #### C MP, TSH, BNP, T7 ####[facility] [address] [place] [address]Dr. Preethilan Rivera Protein [Mass/Vol] 7.2 g/dL Normal 6.4-8.2 [facility] Comment on above: Performed By: #### C MP, TSH, BNP, T7 ####[facility] [address]hw[address] [place] [address]Dr. Preethilan Rivera Sodium [Moles/Vol] 135 mmol/L Critically low 136-145 Th [facility] Comment on above: Performed By: #### C MP, TSH, BNP, T7 ####[facility] [address] [place], [place] [address]Cc. Hardeep Rivera Urea nitrogen [Mass/Vol] 54.0 mg/dL Critically high 7.0-18.0 [facility] Comment on above: Performed By: #### C MP, TSH, BNP, T7 ####[facility] [address] [place], [place] [address]Cv. Hardeep Rivera Urea nitrogen/Creatinine [Mass ratio] 30.3 mg/mg Normal [facility] Comment on above: Performed By: #### C MP, TSH, BNP, T7 ####[facility] [address] [place] [address]Dr. Hardeep Rivera TSHon 01-09-2023 TSH 1.097 uIU/mL Normal 0.358-3.740 [facility] Comment on above: Performed By: #### C MP, TSH, BNP, T7 ####[facility] [address] [place] [address]Dr. Hardeep Rivera ECHOCARDIO M/2D COMPLETEon 0 12-13-2022 ECHOCARDIO M/2D COMPLETE Patient: SYLVIA HANNA Exam Date: 12/13/2022 : 1945 Gender:F Ordering : [facility] Admission #: [id number] Family : Order #: [id number] CLICK HERE TO VIEW EXAM ECHOCARDIOGRAM REPORT [...] Area (VTI): 2.23 cm2, 2.23 cm2 Deceleration [place]: 1.44 m/s2 Pressure Half-Time: 850.98 ms Peak [...] Nolan M.D. on 12/14/2022 at 13:49 Normal [facility] US ALAN DOP LEG BILon 023 US [...] HAI FOSTER Date: 2022-12-13 10:51 Normal [facility] BNPon 12-11-2022 Natriuretic peptide B (Bld) [Mass/Vol] 457.0 pg/mL Normal <=1,800.0 [facility] Comment on above: Performed By: #### E RANDALL PINON #### [facility] [address] [place] [address] Dr. Hardeep Rivera CBC AUTO DIFFon 12-11-2022 BASO # 0.0 103/ul Normal 0.0-0.1 [facility] Comment on above: Performed By: #### E KATHRIN UMICRO #### [facility] [address] [place] [address] Dr. Hardeep Rivera Basophils/100 WBC (Bld) 0.4 % Normal 0.2-2.0 [facility] Comment on above: Performed By: #### HARI OLSONRO #### [facility] [address] [place] [address] Dr. Hardeep Rivera EO # 0.2 103/ul Normal 0.0-0.7 [facility] Comment on above: Performed By: #### HARI OLSONRO #### [facility] [address] [place] [address] Dr. Hardeep Rivera Eosinophils/100 WBC (Bld) 2.7 % Normal 0.9-7.0 [facility] Comment on above: Performed By: #### HARI OLSONRO #### [facility] [address] [place] [address] Dr. Hardeep Rivera Erythrocyte distribution width (RBC) [Ratio] 11.9 % Normal 11.0-15.0 [facility] Comment on above: Performed By: #### HARI OLSONRO #### [facility] [address] [place] [address] Dr. Hardeep Rivera Hematocrit (Bld) [Volume fraction] 40.2 % Normal 36.0-48.0 [facility] Comment on above: Performed By: #### HARI OLSONRO #### [facility] [address] [place] [address] Dr. Hardeep Rivera Hemoglobin (Bld) [Mass/Vol] 13.5 g/dL Normal 12.0-16.0 [facility] Comment on above: Performed By: #### HARI OLSONRO #### [facility] [address] [place] [address] Dr. Hardeep Rivera IG # 0.03 10e3/ul Normal 0.00-0.03 [facility] Comment on above: Performed By: #### HARI OLSONRO #### [facility] [address] [place] [address] Dr. Hardeep Rivera IG % 0.4 % Normal 0.0-0.5 [facility] Comment on above: Performed By: #### HARI OLSONRO #### [facility] [address] [place] [address] Dr. Hardeep Rivera LYMPH # 0.9 103/ul Critically low 1.2-3.8 [facility] Comment on above: Performed By: #### HARI OLSONRO #### [facility] [address] [place] [address] Dr. Hardeep Rivera Lymphocytes/100 WBC (Bld) 11.3 % Critically low 20.5-60.0 [facility] Comment on above: Performed By: #### HARI OLSONRO #### [facility] [address] [place] [address] Dr. Hardeep Rivera MANUAL DIFF REQ NO Normal [facility] Comment on above: Performed By: #### HARI OLSONRO #### [facility] [address] [place] [address] Dr. Hardeep Rivera MCH (RBC) [Entitic mass] 28.4 pg Normal 26.7-34.0 [facility] Comment on above: Performed By: #### HARI OLSONRO #### [facility] [address] [place] [address] Dr. Hardeep Rivera MCHC (RBC) [Mass/Vol] 33.6 g/dL Normal 29.9-35.2 [facility] Comment on above: Performed By: #### HARI OLSONRO #### [facility] [address] [place] [address] Dr. Hardeep Rivera MCV (RBC) [Entitic vol] 84.5 fL Normal 81.0-99.0 [facility] Comment on above: Performed By: #### HARI OLSONRO #### [facility] [address] [place] [address] Dr. Hardeep Rivera MONO # 1.0 103/ul Critically high 0.3-0.8 [facility] Comment on above: Performed By: #### HARI OLSONRO #### [facility] [address] [place] [address] Dr. Hardeep Rivera Monocytes/100 WBC (Bld) 12.5 % Critically high 1.7-12.0 [facility] Comment on above: Performed By: #### AKSHAT OLSONICRO #### [facility] [address] [place] [address] Dr. Hardeep Rivera NEUT # 5.9 103/ul Normal 1.4-6.5 [facility] Comment on above: Performed By: #### AKSHAT OLSONICRO #### [facility] [address] [place] [address] Dr. Hardeep Rivera Neutrophils/100 WBC (Bld) 72.7 % Normal 43.0-75.0 [facility] Comment on above: Performed By: #### AKSHAT OLSONICRO #### [facility] [address] [place] [address] Dr. Hardeep Rivera Platelet mean volume (Bld) [Entitic vol] 8.6 fL Critically low 9.5-13.5 [facility] Comment on above: Performed By: #### AKSHAT OLSONICRO #### [facility] [address] [place] [address] Dr. Hardeep Rivera PLT 226 103/ul Normal 150-450 [facility] Comment on above: Performed By: #### AKSHAT OLSONICRO #### [facility] [address] [place] [address] Dr. Hardeep Rivera RBC 4.76 106/ul Normal 4.20-5.40 [facility] Comment on above: Performed By: #### AKSHAT OLSONICRO #### [facility] [address] [place] [address] Dr. Hardeep Rivera WBC 8.2 103/ul Normal 4.0-11.0 [facility] Comment on above: Performed By: #### AKSHAT OLSONICRO #### [facility] [address] [place] [address] Dr. Hardeep Rivera FREE THYROXINE INDEX T7on FTI 3.40 Normal 1.30-4.50 [facility] Comment on above: Performed By: #### HARI OLSONRO #### [facility] [address] [place] [address] Dr. Hardeep Rivera T3U 34.0 % Normal 30.0-39.0 [facility] Comment on above: Performed By: #### HARI OLSONRO #### [facility] [address] [place] [address] Dr. Hardeep Rivera T4 [Mass/Vol] 10.00 ug/dL Normal 4.80-13.90 [facility] Comment on above: Performed By: #### HARI OLSONRO #### [facility] [address] [place] [address] Dr. Hardeep Rivera PROF 14(COMP METB)on 023 Albumin [Mass/Vol] 3.8 g/dL Normal 3.4-5.0 [facility] Comment on above: Performed By: #### HARI OLSONRO #### [facility] [address] [place] [address] Dr. Hardeep Rivera Albumin/Globulin [Mass ratio] 1.1 {ratio} Normal [facility] Comment on above: Performed By: #### HARI OLSONRO #### [facility] [address] [place] [address] Dr. Hardeep Rivera ALP [Catalytic activity/Vol] 192 U/L Critically high 46-116 [facility] Comment on above: Performed By: #### AKSHAT OLSONICRO #### [facility] [address] [place] [address] Dr. Hardeep Rivera ALT [Catalytic activity/Vol] 22 U/L Normal 14-59 [facility] Comment on above: Performed By: #### Deedee PINON UMICRO #### [facility] [address] [place] [address] Dr. Hardeep Rivera Anion gap [Moles/Vol] 11.4 mmol/L Normal [facility] Comment on above: Performed By: #### E RUR, UMICRO #### [facility] [address] [place] [address] Dr. Hardeep Rivera AST [Catalytic activity/Vol] 22 U/L Normal 15-37 [facility] Comment on above: Performed By: #### E COLLINSR, UMICRO #### [facility] [address] [place] [address] Dr. Hardeep Rivera Bilirubin [Mass/Vol] 0.5 mg/dL Normal 0.2-1.0 [facility] Comment on above: Performed By: #### E RUR, UMICRO #### [facility] [address] [place] [address] Dr. Hardeep Rivera Calcium [Mass/Vol] 9.1 mg/dL Normal 8.5-10.1 [facility] Comment on above: Performed By: #### E KATHRIN, UMICRO #### [facility] [address] [place] [address] Dr. Hardeep Rivera Chloride [Moles/Vol] 93 mmol/L Critically low 98-107 [facility] Comment on above: Performed By: #### Deedee PINON UMICRO #### [facility] [address] [place] [address] Dr. Hardeep Rivera CO2 [Moles/Vol] 30.8 mmol/L Normal 21.0-32.0 [facility] Comment on above: Performed By: #### Deedee PINON, UMICRO #### [facility] [address] [place] [address] Dr. aHrdeep Rivera Creatinine [Mass/Vol] 1.49 mg/dL Critically high 0.55-1.02 [facility] Comment on above: Performed By: #### E KATHRIN, UMICRO #### [facility] [address] [place] [address] Dr. Hardeep Rivera EGFR-AF NIUEAN 41 mL/min/1.73m2 Critically low >=60 [facility] Comment on above: Performed By: #### E KATHRIN, UMICRO #### [facility] [address] [place] [address] Dr. Hardeep Rivera EGFR-NON AF NIUEAN 34 mL/min/1.73m2 Critically low >=60 [facility] Comment on above: Performed By: #### RANDALL OLSON #### [facility] [address] [place] [address] Dr. Hardeep Rivera Globulin (S) [Mass/Vol] 3.4 g/dL Normal [facility] Comment on above: Performed By: #### HARI OLSONRO #### [facility] [address] [place] [address] Dr. Hardeep Rivera Glucose [Mass/Vol] 116 mg/dL Critically high 74-106 [facility] Comment on above: Performed By: #### HARI OLSONRO #### [facility] [address] [place] [address] Dr. Hardeep Rivera Potassium [Moles/Vol] 4.2 mmol/L Normal 3.5-5.1 [facility] Comment on above: Performed By: #### RANDALL OLSON #### [facility] [address] [place] [address] Dr. Hardeep Rivera Protein [Mass/Vol] 7.2 g/dL Normal 6.4-8.2 [facility] Comment on above: Performed By: #### HARI OLSONRO #### [facility] [address] [place] [address] Dr. Hardeep Rivera Sodium [Moles/Vol] 131 mmol/L Critically low 136-145 [facility] Comment on above: Performed By: #### HARI OLSONRO #### [facility] [address] [place] [address] Dr. Hardeep Rivera Urea nitrogen [Mass/Vol] 38.0 mg/dL Critically high 7.0-18.0 [facility] Comment on above: Performed By: #### HARI OLSONRO #### [facility] [address] [place] [address] Dr. Hardeep Rivera Urea nitrogen/Creatinine [Mass ratio] 25.5 mg/mg Normal [facility] Comment on above: Performed By: #### RANDALL OLSON #### [facility] [address] [place] [address] Dr. Hardeep Rivera TSHon 12-11-2022 TSH 6.407 uIU/mL Critically high 0.358-3.740 [facility] Comment on above: Performed By: #### E HARI PINONRO #### [facility] [address] [place] [address] Dr. Hardeep Rivera Covid-19 PCR ([facility])on 11-01 SARS-CoV-2 (COVID-19) RNA ULICES+probe Ql (Unsp spec) Not detected Normal NOT DETECTED [facility] Comment on above: Result Comment: This test is not yet approved or cleared by the [place] FDA. When there are no FDA-approved or cleared tests available, and other criteria are met, FDA can make tests available under an emergency access mechanism called an Emergency Use Authorization (EUA). The EUA for this test is supported by the [employer] of Health and Human Service's (HHS's) declaration [...] consistent with SARS-CoV-2. Performed By: #### [facility] #### [facility] [address] [place] [address] Dr. Hardeep Rivera INFLUENZA A AND B AGon 11-14 INFLUANEGH SEE BELOW Normal [facility] Comment on above: Result Comment: Nega tive for Flu A protein angiten. Infection due to Flu A cannot be ruled out. Flu A angiten in the sample may be below the detection limit of the test. Performed By: #### E KATHRIN UMICRO #### [facility] [address] [place] [address] Dr. Hardeep Rivera INFLUBNEGH SEE BELOW Normal [facility] Comment on above: Result Comment: Nega tive for Flu B protein antigen. Infection due to Flu B cannot be ruled out. Flu B antigen in the sample may be below the detection limit of the test. Performed By: #### E RUR, UMICRO #### [facility] [address] [address] [address] Hardeep Rivera INFLUENZA A AG Negative Normal NEGATIVE SEE COMMENT [facility] Comment on above: Performed By: #### E RUR, UMICRO #### [facility] [address] [address] [address] Hardeep Rivera INFLUENZA B AG Negative Normal NEGATIVE SEE COMMENT [facility] Comment on above: Performed By: #### E RUR, UMICRO #### [facility] [address] [address] [address] Hardeep Rivera INTERNAL CONTROLS Within Normal Limits Normal Wi thin Normal Limits [facility] Comment on above: Performed By: #### E RUR, UMICRO #### [facility] [address] [address] [address] Hardeep Rivera [facility]on SARS-CoV-2 (COVID-19) RNA ULICES+probe Ql (Unsp spec) Not detected Normal NOT DETECTED [facility] Comment on above: Result Comment: This test is not yet approved or cleared by the [place] FDA. When there are no FDA-approved or cleared tests available, and other criteria are met, FDA can make tests available under an emergency access mechanism called an Emergency Use Authorization (EUA). The EUA for this test is supported by the [employer] of Health and Human Service's (HHS's) declaration [...] consistent with SARS-CoV-2. Performed By: #### [facility] #### [facility] [address] [place] [address] Dr. Hardeep Rivera INFLUENZA A AND B AGon 10-03 [facility] SEE BELOW Normal [facility] Comment on above: Result Comment: Nega tive for Flu A protein angiten. Infection due to Flu A cannot be ruled out. Flu A angiten in the sample may be below the detection limit of the test. Performed By: #### Deedee PINON, UMICRO #### [facility] [address] [place] [address] Dr. Hardeep Rivera [facility] SEE BELOW Normal [facility] Comment on above: Result Comment: Nega tive for Flu B protein antigen. Infection due to Flu B cannot be ruled out. Flu B antigen in the sample may be below the detection limit of the test. Performed By: #### HARI OLSONRO #### [facility] [address] [place] [address] Dr. Hardeep Rivera INFLUENZA A AG Negative Normal NEGATIVE SEE COMMENT [facility] Comment on above: Performed By: #### AKSHAT OLSONICRO #### [facility] [address] [place] [address] Dr. Hardeep Rivera INFLUENZA B AG Negative Normal NEGATIVE SEE COMMENT [facility] Comment on above: Performed By: #### Deedee PINON UMICRO #### [facility] [address] [place] [address] Dr. Hardeep Rivera INTERNAL CONTROLS Within Normal Limits Normal Wi thin Normal Limits [facility] Comment on above: Performed By: #### Deedee PINON, UMICRO #### [facility] [address] [place] [address] Dr. Hardeep Clark 08-16-2022 NIK Telephone (JULIAN CONNELLY MAI) -- SYLVIA HANNA ([id number]) 1945 F Date Time Provider Department 08/16/22 [facility] During your visit today, we recorded the [...] mg by mouth three times daily. - fctsnw-myjaarnp-almilye (CREON) 24,000-76,000 -120,000 unit cpDR Take 3 [...] Status:Closed by SOY MCCANN on 08/16/22 Normal [facility] AMYLASEon 08-04-2022 Amylase [Catalytic activity/Vol] 155 U/L Critically high 25-115 [facility] Comment on above: Performed By: #### C MP, LIPA, BRITTNEY ####[facility] [address] [id number] Rivera CBC AUTO DIFFon 08-04-2022 BASO # 0.0 103/ul Normal 0.0-0.1 [facility] Comment on above: Performed By: #### C BC ####[facility] [address] [id number] Rivera Basophils/100 WBC (Bld) 0.3 % Normal 0.2-2.0 [facility] Comment on above: Performed By: #### C BC ####[facility] [address] [place], [place] [address]Dr. Hardeep Rivera EO # 0.1 103/ul Normal 0.0-0.7 [facility] Comment on above: Performed By: #### C BC ####[facility] [address] [place], [place] [address]Dr. Hardeep Rivera Eosinophils/100 WBC (Bld) 1.2 % Normal 0.9-7.0 [facility] Comment on above: Performed By: #### C BC ####[facility] [address] [place], [place] [address]Dr. Hardeep Rivera Erythrocyte distribution width (RBC) [Ratio] 12.2 % Normal 11.0-15.0 [facility] Comment on above: Performed By: #### C BC ####[facility] [address] [place], [place] [address]DrLaura Rivera Hematocrit (Bld) [Volume fraction] 38.3 % Normal 36.0-48.0 [facility] Comment on above: Performed By: #### C BC ####[facility] [address] [place], [place] [address]Dr. Preethiarabella Rivera Hemoglobin (Bld) [Mass/Vol] 12.9 g/dL Normal 12.0-16.0 [facility] Comment on above: Performed By: #### C BC ####[facility] [address] [place], [place] [address]DrLaura Rivera IG # 0.02 10e3/ul Normal 0.00-0.03 [facility] Comment on above: Performed By: #### C BC ####[facility] [address] [place], [place] [address]Dr. Hardeep Rivera IG % 0.3 % Normal 0.0-0.5 [facility] Comment on above: Performed By: #### C BC ####[facility] [address] [place], [place] [address]DrLaura Rivera LYMPH # 1.1 103/ul Critically low 1.2-3.8 [facility] Comment on above: Performed By: #### C BC ####[facility] [address] [address]DrLaura Rivera Lymphocytes/100 WBC (Bld) 16.6 % Critically low 20.5-60.0 [facility] Comment on above: Performed By: #### C BC ####[facility] [address] [address]DrLaura Rivera MANUAL DIFF REQ NO Normal [facility] Comment on above: Performed By: #### C BC ####[facility] [address] [address]DrLaura Rivera MCH (RBC) [Entitic mass] 29.7 pg Normal 26.7-34.0 [facility] Comment on above: Performed By: #### C BC ####[facility] [address] [place], [place] [address]Dr. Hardeep Rivera MCHC (RBC) [Mass/Vol] 33.7 g/dL Normal 29.9-35.2 [facility] Comment on above: Performed By: #### C BC ####[facility] [address] [place], [place] [address]DrLaura Rivera MCV (RBC) [Entitic vol] 88.2 fL Normal 81.0-99.0 [facility] Comment on above: Performed By: #### C BC ####[facility] [address] [place], [place] [address]Dr. Hardeep Rivera MONO # 0.7 103/ul Normal 0.3-0.8 [facility] Comment on above: Performed By: #### C BC ####[facility] [address] [place], [place] [address]DrLaura Rivera Monocytes/100 WBC (Bld) 11.1 % Normal 1.7-12.0 [facility] Comment on above: Performed By: #### C BC ####[facility] [address] [place], [place] [address]DrLaura Rivera NEUT # 4.6 103/ul Normal 1.4-6.5 [facility] Comment on above: Performed By: #### C BC ####[facility] [address] [id number]. Hardeep Rivera Neutrophils/100 WBC (Bld) 70.5 % Normal 43.0-75.0 [facility] Comment on above: Performed By: #### C BC ####[facility] [address] [id number]. Hardeep Rivera Platelet mean volume (Bld) [Entitic vol] 9.4 fL Critically low 9.5-13.5 [facility] Comment on above: Performed By: #### C BC ####[facility] [address] [id number]. Hardeep Rivera PLT 203 103/ul Normal 150-450 [facility] Comment on above: Performed By: #### C BC ####[facility] [address] [id number]. Hardeep Rivera RBC 4.34 106/ul Normal 4.20-5.40 [facility] Comment on above: Performed By: #### C BC ####[facility] [address] [id number]. Hardeep Rivera WBC 6.5 103/ul Normal 4.0-11.0 [facility] Comment on above: Performed By: #### C BC ####[facility] [address] [id number]. Hardeep Rivera CT ABD/PELVIS WO CONon 08-04 [...] ALEXSANDER HARDING Date: 2022-08-04 20:12 Normal [facility] Covid-19 PCR (CVDTB)on SARS-CoV-2 (COVID-19) RNA ULICES+probe Ql (Unsp spec) Not detected Normal NOT DETECTED [facility] Comment on above: Result Comment: When diagnostic [...] for this test is supported by the [employer] of Health and Human Service's declaration that [...] longer be used). Performed By: #### [facility] ####[facility] [address] [address]Dr. Hardeep Rivera ER URINE PROFILEon 2 Bilirubin Ql (U) Negative Normal NEGATIVE [facility] Comment on above: Performed By: #### E RUR #### [facility] [address] [place] [address] Dr. Hardeep Rivera Clarity (U) CLEAR Normal CLEAR [facility] Comment on above: Performed By: #### E RUR #### [facility] [address] [place] [address] Dr. Hardeep Rivera Color (U) LT. YELLOW Normal YELLOW [facility] Comment on above: Performed By: #### E RUR #### [facility] [address] [place] [address] Dr. Hardeep Rivera ERUAHD A micrscopic examina tion will be performed if indicated. Normal [facility] Comment on above: Performed By: #### E RUR #### [facility] [address] [place] [address] Dr. Hardeep Rivera Glucose Ql (U) Negative Normal NEGATIVE [facility] Comment on above: Performed By: #### E RUR #### [facility] [address] [address] [address] Hardeep Rivera Hemoglobin Ql (U) Negative Normal NEGATIVE [facility] Comment on above: Performed By: #### E RUR #### [facility] [address] [place] [address] Dr. Hardeep Rivera Ketones Ql (U) Negative Normal NEGATIVE [facility] Comment on above: Performed By: #### E RUR #### [facility] [address] [place] [address] Dr. Hardeep Rivera LEUKOCYTES Negative Normal NEGATIVE [facility] Comment on above: Performed By: #### E RUR #### [facility] [address] [place] [address] Dr. Hardeep Rivera Nitrite Ql (U) Negative Normal NEGATIVE [facility] Comment on above: Performed By: #### E RUR #### [facility] [address] [place] [address] Dr. Hardeep Rivera pH (U) 7.0 [pH] Normal 5-9 [facility] Comment on above: Performed By: #### E RUR #### [facility] [address] [place] [address] Dr. Hardeep Rivera SPEC GRAVITY <=1.005 Abnormal 1.005-<=1.0 25 [facility] Comment on above: Performed By: #### E RUR #### [facility] [address] [place] [address] Dr. Hardeep Rivera UA PROTEIN Negative Normal NEGATIVE/ TRACE [facility] Comment on above: Performed By: #### E RUR #### [facility] [address] [place] [address] Dr. Hardeep Rivera UR MICRO IND NOT INDICATED Normal [facility] Comment on above: Performed By: #### E RUR #### [facility] [address] [place] [address] Dr. Hardeep Rivera Urobilinogen Qn (U) 0.2 {Kevon'U}/dL Normal 0.2 - 1. 0 [facility] Comment on above: Performed By: #### E RUR #### [facility] [address] [address] [address] Hardeep Rivera LIPASEon 08-04-2022 Lipase [Catalytic activity/Vol] 1486.0 U/L Critically high 73.0-393.0 [facility] Comment on above: Performed By: #### C ARGENIS LIPA, BRITTNEY ####[facility] [address] [address]DrLaura Rivera PROF 14(COMP METB)on 022 Albumin [Mass/Vol] 3.6 g/dL Normal 3.4-5.0 [facility] Comment on above: Performed By: #### C ARGENIS LIPA, BRITTNEY ####[facility] [address] [address]DrLaura Rivera Albumin/Globulin [Mass ratio] 1.3 {ratio} Normal [facility] Comment on above: Performed By: #### C MP LIPA, BRITTNEY ####[facility] [address] [address]Dr. Hardeep Rivera ALP [Catalytic activity/Vol] 171 U/L Critically high 46-116 [facility] Comment on above: Performed By: #### C ARGENIS LIPA, BRITTNEY ####[facility] [address] [address]DrLaura Rivera ALT [Catalytic activity/Vol] 35 U/L Normal 14-59 [facility] Comment on above: Performed By: #### C MP, LIPA, BRITTNEY ####[facility] [address] [address]DrLaura Rivera Anion gap [Moles/Vol] 11.4 mmol/L Normal [facility] Comment on above: Performed By: #### C MP, LIPA, BRITTNEY ####[facility] [address] [address]DrLaura Rivera AST [Catalytic activity/Vol] 28 U/L Normal 15-37 [facility] Comment on above: Performed By: #### C MP, LIPA, BRITTNEY ####[facility] [address] [address]DrLaura Rivera Bilirubin [Mass/Vol] 0.7 mg/dL Normal 0.2-1.0 [facility] Comment on above: Performed By: #### C DERRELL MOREA, BRITTNEY ####[facility] [address] [address]Dr. Hardeep Rivera Calcium [Mass/Vol] 8.4 mg/dL Critically low 8.5-10.1 Th [facility] Comment on above: Performed By: #### C ARGENIS LIPA, BRITTNEY ####[facility] [address] [address]Dr. Hardeep Rivera Chloride [Moles/Vol] 100 mmol/L Normal 98-107 [facility] Comment on above: Performed By: #### C ARGENIS LIPA, BRITTNEY ####[facility] [address] [address]Dr. Hardeep Rivera CO2 [Moles/Vol] 25.6 mmol/L Normal 21.0-32.0 [facility] Comment on above: Performed By: #### C MP LIPA, BRITTNEY ####[facility] [address] [address]Dr. Hardeep Rivera Creatinine [Mass/Vol] 1.33 mg/dL Critically high 0.55-1.02 [facility] Comment on above: Performed By: #### C MP LIPA, BRITTNEY ####[facility] [address] [address]Dr. Hardeep Rivera EGFR-AF NIUEAN 47 mL/min/1.73m2 Critically low >=60 [facility] Comment on above: Performed By: #### C MP, LIPA, BRITTNEY ####[facility] [address] [address]Dr. Hardeep Rivera EGFR-NON AF NIUEAN 39 mL/min/1.73m2 Critically low >=60 [facility] Comment on above: Performed By: #### C MP, LIPA, BRITTNEY ####[facility] [address] [address]Dr. Hardeep Rivera Globulin (S) [Mass/Vol] 2.7 g/dL Normal [facility] Comment on above: Performed By: #### C ABAD MORE, BRITTNEY ####[facility] [address] [address]Dr. Hardeep Rivera Glucose [Mass/Vol] 108 mg/dL Critically high 74-106 T [facility] Comment on above: Performed By: #### C ABAD MORE, BRITTNEY ####[facility] [address] [address]Dr. Hardeep Rivera Potassium [Moles/Vol] 4.0 mmol/L Normal 3.5-5.1 [facility] Comment on above: Performed By: #### C ABAD MORE, BRITTNEY ####[facility] [address] [address]Dr. Hardeep Rivera Protein [Mass/Vol] 6.3 g/dL Critically low 6.4-8.2 Th [facility] Comment on above: Performed By: #### C ABAD MORE, BRITTNEY ####[facility] [address] [place], [place] [address]Dr. Hardeep Rivera Sodium [Moles/Vol] 133 mmol/L Critically low 136-145 Th [facility] Comment on above: Performed By: #### C ABAD MORE, BRITTNEY ####[facility] [address] [address]Dr. Hardeep Rivera Urea nitrogen [Mass/Vol] 23.0 mg/dL Critically high 7.0-18.0 [facility] Comment on above: Performed By: #### C ABAD MORE, BRITTNEY ####[facility] [address] [place], [place] [address]Dr. Hardeep Rivera Urea nitrogen/Creatinine [Mass ratio] 17.3 mg/mg Normal [facility] Comment on above: Performed By: #### C ABAD MORE, BRITTNEY ####[facility] [address] [place], [place] [address]Dr. Hardeep Rivera Pre-Certification Formon Pre-Certification Form [id number]:12 [id number] Normal [facility] TEST SENT OUTon 08-02-20 22 SENT TO REF LAB 08/02/2022 Normal [facility] Comment on above: Performed By: #### E RUR #### [facility] [address] [place] [address] Dr. Hardeep Rivera CBC AUTO DIFFon 08-02-2022 BASO # 0.0 103/ul Normal 0.0-0.1 [facility] Comment on above: Performed By: #### E RUR, UMICRO #### [facility] [address] [place] [address] Dr. Hardeep Rivera Basophils/100 WBC (Bld) 0.3 % Normal 0.2-2.0 [facility] Comment on above: Performed By: #### E RUTrish, UMICRO #### [facility] [address] [place] [address] Dr. Hardeep Rivera EO # 0.1 103/ul Normal 0.0-0.7 [facility] Comment on above: Performed By: #### E KATHRIN, UMICRO #### [facility] [address] [place] [address] Dr. Hardeep Rivera Eosinophils/100 WBC (Bld) 1.4 % Normal 0.9-7.0 [facility] Comment on above: Performed By: #### Deedee PINON, UMICRO #### [facility] [address] [place] [address] Dr. Hardeep Rivera Erythrocyte distribution width (RBC) [Ratio] 12.2 % Normal 11.0-15.0 [facility] Comment on above: Performed By: #### E COLLINSR, UMICRO #### [facility] [address] [place] [address] Dr. Hardeep Rivera Hematocrit (Bld) [Volume fraction] 41.2 % Normal 36.0-48.0 [facility] Comment on above: Performed By: #### E RUR, UMICRO #### [facility] [address] [place] [address] Dr. Hardeep Rivera Hemoglobin (Bld) [Mass/Vol] 13.6 g/dL Normal 12.0-16.0 [facility] Comment on above: Performed By: #### RANDALL OLSON #### [facility] [address] [place] [address] Dr. Hardeep Rivera IG # 0.02 10e3/ul Normal 0.00-0.03 [facility] Comment on above: Performed By: #### HARI OLSONRO #### [facility] [address] [place] [address] Dr. Hardeep Rivera IG % 0.3 % Normal 0.0-0.5 [facility] Comment on above: Performed By: #### HARI OLSONRO #### [facility] [address] [place] [address] Dr. Hardeep Rivera LYMPH # 0.6 103/ul Critically low 1.2-3.8 [facility] Comment on above: Performed By: #### RANDALL OLSON #### [facility] [address] [place] [address] Dr. Hardeep Rivera Lymphocytes/100 WBC (Bld) 8.9 % Critically low 20.5-60.0 [facility] Comment on above: Performed By: #### RANDALL OLSON #### [facility] [address] [place] [address] Dr. Hardeep Rivera MANUAL DIFF REQ NO Normal [facility] Comment on above: Performed By: #### HARI OLSONRO #### [facility] [address] [place] [address] Dr. Hardeep Rivera MCH (RBC) [Entitic mass] 29.6 pg Normal 26.7-34.0 [facility] Comment on above: Performed By: #### HARI OLSONRO #### [facility] [address] [place] [address] Dr. Hardeep Rivera MCHC (RBC) [Mass/Vol] 33.0 g/dL Normal 29.9-35.2 [facility] Comment on above: Performed By: #### HARI OLSONRO #### [facility] [address] [place] [address] Dr. Hardeep Rivera MCV (RBC) [Entitic vol] 89.8 fL Normal 81.0-99.0 [facility] Comment on above: Performed By: #### Deedee PINON UMICRO #### [facility] [address] [place] [address] Dr. Hardeep Rivera MONO # 0.7 103/ul Normal 0.3-0.8 [facility] Comment on above: Performed By: #### Deedee PINON UMICRO #### [facility] [address] [place] [address] Dr. Hardeep Rivera Monocytes/100 WBC (Bld) 11.6 % Normal 1.7-12.0 [facility] Comment on above: Performed By: #### Deedee PINON UMICRO #### [facility] [address] [place] [address] Dr. Hardeep Rivera NEUT # 5.0 103/ul Normal 1.4-6.5 [facility] Comment on above: Performed By: #### Deedee PINON ICRO #### [facility] [address] [place] [address] Dr. Hardeep Rivera Neutrophils/100 WBC (Bld) 77.5 % Critically high 43.0-75.0 [facility] Comment on above: Performed By: #### Deedee PINON UMICRO #### [facility] [address] [place] [address] Dr. Hardeep Rivera Platelet mean volume (Bld) [Entitic vol] 9.4 fL Critically low 9.5-13.5 [facility] Comment on above: Performed By: #### Deedee PINON UMICRO #### [facility] [address] [place] [address] Dr. Hardeep Rivera PLT 200 103/ul Normal 150-450 [facility] Comment on above: Performed By: #### Deedee PINON, UMICRO #### [facility] [address] [place] [address] Dr. Hardeep Rivera RBC 4.59 106/ul Normal 4.20-5.40 [facility] Comment on above: Performed By: #### E RANDALL PINON #### [facility] [address] [place], [place] [address] Dr. Hardeep Rivera WBC 6.4 103/ul Normal 4.0-11.0 [facility] Comment on above: Performed By: #### RANDALL OLSON #### [facility] [address] [place], [place] [address] Dr. [facility] CNPN Telephone (JULIAN [facility]ACC) -- SYLVIA HANNA ([id number]) 1945 F Date Time Provider Department 08/02/22 LOIDA MATHIAS [facility]ACC During your visit today, we [...] will be transferring her care. Loida Mathias APRN.CNP August 07, 2022 10:27 AM Allergies As [...] mg by mouth three times daily. - tsedqn-ieprizto-huztroh (CREON) 24,000-76,000 -120,000 unit cpDR Take 3 [...] Status:Closed by LINDEN WEEMS on 08/02/22 Normal [facility] PROF CHEM 8 (BAS METB)on Anion gap [Moles/Vol] 12.2 mmol/L Normal [facility] Comment on above: Performed By: #### Deedee PINON UMICRO #### [facility] [address] [place] [address] Dr. Hardeep Rivera Calcium [Mass/Vol] 8.6 mg/dL Normal 8.5-10.1 [facility] Comment on above: Performed By: #### Deedee PINON, UMICRO #### [facility] [address] [place] [address] [address] Hardeep Rivera Chloride [Moles/Vol] 98 mmol/L Normal 98-107 [facility] Comment on above: Performed By: #### Deedee PINON, UMICRO #### [facility] [address] [place] [address] [address] Hardeep Rivera CO2 [Moles/Vol] 27.7 mmol/L Normal 21.0-32.0 [facility] Comment on above: Performed By: #### Deedee PINON, UMICRO #### [facility] [address] [place] [address] [address] Hardeep Rivera Creatinine [Mass/Vol] 1.42 mg/dL Critically high 0.55-1.02 [facility] Comment on above: Performed By: #### Deedee PINON, UMICRO #### [facility] [address] [place] [address] [address] Hardeep Rivera EGFR-AF NIUEAN 43 mL/min/1.73m2 Critically low >=60 [facility] Comment on above: Performed By: #### HARI OLSONRO #### [facility] [address] [place] [address] Dr. Hardeep Rivera EGFR-NON AF NIUEAN 36 mL/min/1.73m2 Critically low >=60 [facility] Comment on above: Performed By: #### HARI OLSONRO #### [facility] [address] [place] [address] Dr. Hardeep Rivera Glucose [Mass/Vol] 119 mg/dL Critically high 74-106 [facility] Comment on above: Performed By: #### HARI OLSONRO #### [facility] [address] [place] [address] Dr. Hardeep Rivera Potassium [Moles/Vol] 3.9 mmol/L Normal 3.5-5.1 [facility] Comment on above: Performed By: #### AHRI OLSONRO #### [facility] [address] [place] [address] Dr. Hardeep Rivera Sodium [Moles/Vol] 134 mmol/L Critically low 136-145 Th [facility] Comment on above: Performed By: #### HARI OLSONRO #### [facility] [address] [place] [address] Dr. Hardeep Rivera Urea nitrogen [Mass/Vol] 21.0 mg/dL Critically high 7.0-18.0 [facility] Comment on above: Performed By: #### HARI OLSONRO #### [facility] [address] [place] [address] Dr. Hardeep Rivera Urea nitrogen/Creatinine [Mass ratio] 14.8 mg/mg Normal [facility] Comment on above: Performed By: #### HARI OLSONRO #### [facility] [address] [place] [address] Dr. Hardeep Rivera [facility] Tacrolimus (Bld) [Mass/Vol] 4.7 ng/mL Low 5.0-20.0 [facility] Comment on above: Order Comment: Speci [...] situation. Test performed by chemiluminescent immunoassay using [employer]. Performed By: #### 1 1253-2 ####[facility] [id number] [place] [address] [place] Giardia, Direct, EIAon 07-23 G. lamblia Ag IA Ql (Stl) Negative Invalid Interpretation Code Negative [facility] Comment on above: Result Comment: Perf ormed at: [address] [id number] PhD Sommer Davis Performed By: #### 4 [id number] ####[facility] [address] [place] [address] O & P EXAM, ROUTINE, REFLEXo n 07-23-2022 Ova and parasites identified Concentration Nom (Stl) Comment Invalid Interpretation Code [facility] Comment on above: Result Comment: No o va, cysts, or parasites seen. One negative specimen does not rule out the possibility of a parasitic infection. Performed at: [address] [id number] PhD Sommer Davis Performed By: #### 4 [id number] ####[facility] [address] [place] [address] O & P Exam, Routineon 2021 Ova and parasites identified LM Nom (Unsp spec) Final report Invalid Interpretation Code [facility] Comment on above: Result Comment: Thes e results were obtained using wet preparation(s) and trichrome stained smear. This test does not include testing for Cryptosporidium parvum, Cyclospora, or Microsporidia. Performed at: [facility] [address] [place] [address] [id number] PhD Sommer Davis Performed By: #### 4 [id number] ####[address] [place] [address] Consent for Procedure/Surger yon 07-19-2022 Consent for Procedure/Surgery [id number]:12 7 Normal [facility] CMV IgMon 07-18-2022 CMV IgM IA Qn <30.0 Invalid Interpretation Code 0.0-29.9 [facility] Comment on above: Result Comment: Nega tive <30.0 Equivocal 30.0 - 34.9 Positive >34.9 A positive result is generally indicative of acute infection, reactivation or persistent IgM production. Performed at: [facility] [address] [place] [address] [id number] PhD Sommer Davis Performed By: #### 1 [id number] ####[address] [place] [address] Coding Summary.on 07-18-2022 Coding Summary. CD:[id number] Gh0bWw +PGhlYWQ+RH7VRMQeN61xaZRlr H4LK4wQDX4JSOTYUZSAEI8DXT1 caPM4BWadM1IwayJp QbixgYSqOW00EKk1UGO3bMtfPR cilU3sjHGzQ8y3XfAzSU16dY09 HBhlHPRtZaM8DfKtlhrnjWCz J0yzInUzwZUyOtv+PHRhYmxlIH aqGLHhXJchZNHaLlHqlAjzYD3m Dw9yXUMmBQRqeSzurGPwHnDm z8qhYYSmKZlfPV5thZmoO4KdeW Q1BXPcf1m7Pc61qVZ+PHRkIHN0 qCpsBZoqc905TnKli9odGTV2 xMBjXHfnKQE5V05cl7P5DDFgMB PpZDB5aET2gD3uyPyrsgbuH7Bt aQArUpJ9IZN6nRKjfA8hfSdg wjcjbP1hFkj+E22ZYK3ZWEVMFM 7QQpd8F2VbQciwdXY+HJ33OEWe SL66xBBgyRYio3wdkGm0RpWu AUWpLZW8nSqwQNopw9ApEOKeH8 1tgABgc4F6WUIhuNeejOBsSiHu qFR9kW2yFAeswpjhv1ipvdmf Pzhcf5fygx67tT33W29oYPdiHL ZsWSU3MJQbMBEtdDsiti2qrC2s Ii8+SOfct8aen8xfhCv1NqWd GRZezeMojGxmXCU6e8UrIb35M8 DstWtwj4MjClz0qz30pXIbx0Z3 zNO0FBrtKTOsyD1uRIujPmN7 JOSkXxXwxY84wTMcZOsjSe0qsJ ccwOveHE0fZBGjevdrBGCqfA3g WZKklQUqoGqsFT7eAPWxzoyl y834YvHnLXN1CAYziEZwW3ZebN 1oXvMoMHPfSQGiP3SwrPVtSTkc P784IDzxMzF0KNFmzdSrP9Gd SADlsNziUbB8l6G5Vp3Of2Bzoe mmLAJ2ULuiQYM6TsV1BgKzJeY8 X7UfMps4KTJouLciXN9kU6Vl PDMllthozlnwyVG8QTEjQUDutV 50jHXjQXqdAc3zs5P5b948OTMb EQDmiL78Kb8tlXrqLZSjyOFD eB0uwqjfd8xvnpnkCzPbHRBqLJ h0ANk0RMKixCreKzGfCUI9JgF3 GCP0cPFwkX5pdObfjlphaB1s Oyc+V90asU4nVPK6RRE9jsphCG QxksGxPW48GN76O4YoKqvtgHTq bGU+OHDoadMteMijVU5bFdFr a9vbz9IjXHzmT5ZkAGCpJQbhHk g6ASNaSDF1zWD0hO3wGHMqUIpf k7L5eUR5W0GqlaPrwl1gp3pq LOYoFMdrB77raXNml6N6OWNjaA W8WFLryPhlRcCcmU44Ayo+PGNv aTyol8QjDagwv1dst7ycfPo7 IjPaVXOpsvSgxXadZLB8w9SeTx 24L11dQWlfAXSqNIDkZKIeYUNu lUzfef4bvR2wPk9+PGNvbCB3 iYF1qE4cWKRxTcD8HPmbO544Hq TitXHbNywao9tsm8whuJx5BxAg JFJzptIddShuQII1z0GbOh16 A64rRMoiEQIgXCJlVJNpKCHclF btgi2zaP1tIn5+FU2ha5txgp36 iA57mMO+HLPdSBA9kZitDRus RRMllU1jAVpgAgZ1XHTbAmNzcK 41jEOxGYbmBd9wqZkqnVqtPP8m OCNyoiqta313GzYlr2yqWYGw gJJiLKwjBUW4Y66on3O4RIAgAG OrEZA3dSC9pL8lvNbuhicntBHk cZeoppFduDkxOSjeBPsdG467 IHRvcDsnPlBhdGllbnQgTmFtZT s7W0CnNjy9ARSqdHpmPM2ymLQh ACycRh9scEjedJgnZD6hZGPp gmosq243QjFxu8tgZWDgoQBuWX zpZLS0P30sx8O5RGZrHOSsBVN7 gIV8vA4ssHxfrkcksNFxfXht ydRgrBxfNXtmHMaqC363VBZleB tjRlOldcEkUKTvvSM7YX98AQ84 hYBxw4R0gVN6L5OlASGkjwaq ldogfVL8LHTgKUPxvT23Yl2eaJ uuGa2fAHIbCOZ9FWGcjSQwA2Tn iY6aBiBcWDWwMHYvF9YltWYo MXfcN058QZovUxX0UFJqlhNsA4 MmTMYxjEucQnQ3w9F4Vg4UO0J3 CA28XZ31pSJvi1M4jLE2I3Ly QUKzorqggibvwIL2RJFjZXOewU 33Ji2xmBulVh6qJSWlNYV0SLQv mUKcQ7OjqZ8fLrXgUHZtBMPg U4DcdRNbDNxrO621CVjtLlA7ZU BqjpOfA0LbRCVeiFwcWbR6t0M7 Ef5HXEz2AV96ME62gRGal0P9 lQR7K6HgWMBiajdileahfLU8JA HaRSLzjJ60Lw2cmPsmTf8sWXXh SKL0OMAhqVShE1SwnQ9iHgUb QVCwAHEpI1ZefFJuGPgsP048HD dhVyB8QUVborFlR2GtHFTpkUkj KtJ5j2K3In1EAKPxNY96ZKY0 cJB4HU83LD06C1TcVudmlVFgaE U+PHRhYmxlIHdpZHRoPScxMDAl EgOzvXcbJD6jUi1wPLQtLMHu kVowfNLnWrWys7rbFWPnKMkdOL 0ovYkeE6RwzRK9GOIko0f5Ly67 F97xA2KyfEG+GRXosCI1oVE7 aJ1iMwZhYhY7LCkwS148UwJugX XlNwjyi4pxo5kvlVr5YaS8XTKv swCynItcRAR0b5SoBo11V27j IHdpZHRoPSIxNSUiIHZhbGlnbj 0kwT0yOj9+FPAkbYR2pHO3yK2z WeHnSdB3KObwJ815QkYikULl Wkbtr9bnv6dygBv6TsHbIXBtox MyvNxiDIG2o9IyZs91Z4JjbZvc v1NtUrf2tq05aHAqx8A8gKS4 Z3XlWODszhwhbZJxgCgiTF8tLM AvkryiJNEjdT0uOFKgI5u7TmQg VgJ9VZkgP3AcdsE5ELQhlHQa ZFdhIUK6S51mm0F1OLAkOVGhPP Y4uXS6hU8unUkxkqmdrLEzqXqz bdKitSnvTKoiGHdqE210LSSv iQudRPEhjL3rOZQeyOUtpShgTS 4wNTBpbjsnPlBFTkNFLCBISUxE PDIXKR80EB88aUMvt3C6zOF7 V4FrJCHzmkhteybrpWA1JWNrOD GvbB65eENsRDuoIx9nu4K5k526 PGOxNEIqlZ02Si5vrPxjKWFu rBNCtK6mnxryk6lxttleUhTvST GeEPm1DMy3PSAfdFpoGvWsKLU1 ItL4QCF7dSFzyK0skFlpfsma nB4pWfn+HTIcVgIvQZp4NYvxyR Q+ZBQxULP4bBxtUTqrYFGfnH7g OFXpX9w3CjYzDsB4PRlnQ2Yv SGHzltujAd06fN1dJeXkDxV3GH jfB7NsdtL8OQGlkEAvPKfzAGT5 Z00jk0L4YOUeBVDxBIC8eZV1 cF4edBrrcpymgWIjpCavhyOfgF xxWTgfQCwbV532UDKmjTrnYyf9 THflKUXyTJ98OM64dTZtm0J5 lCL7F0BnGHQeffhaiwdmuTP4WJ BjWAOokK12zGLhDZjyCd2bd0U2 u091NRYpHXXjeJ85En0qeUom SMZlrGTUgI9qoscdw8yhwbgeRn AkDGXwWXp1WDv8NCSunRkjNdLg KRW2RvU8KOS5eCEglJ2kxAaf illbrQ6yRah+YvAsJKbwLV05MD 55wURbw2O2nWL4P5UkWQMwbuyh wpekvLZ3TPLgZGGnjA52aHKr NHcaMe1xj4F3t549OBSbDQYpuV 93Xo7jjEfyQZMueRQTaN4jyule w4afkbxjZkLdNRJaPPl1NTb0 VELvwAmvZpUrQIW6TdR7CXR7aY ImoE4jfMwionlbcV3iWop+T3V0 wUD8gNPiyBxvvBV+UF01mf45 M2RlOgnbZia3MNUtNTS2eVR1vF 9dKIWdSBtzl2D4pLM2N2EfnnRv bo5tb3pzRLYkYHecK21fcWFk v5B8IOXvqFM5DXIzwTcwBdFowT 93Oyc+JQNkcIary9TpHbzkt5ww c1yzaWs0NqLkTZWumoGkmIjg BPI6q0OiSd03L21tURuiDTZiDX RqUPNyDGPaeKtabm9keJ1eMp3+ GKWnrTK8dPD0nN7eKlGwQlD6 DQpfI818IzQenELwKcovx0hpp5 tmaNb5PrFcVRTkuwItyEjqMWJ1 h8XuQz46G2ZgqJsba6ZbYqy6 la76jFGzi5S9cUT2N7SsTCIiol utuQZomDyfME8uJXZorftoHCCs cI8tYRArH9f4GcXcBnB6BSsz A2BzsdL3OILakCEtHGInqBMVhC 1gtetfd6oueyqiRaAjSBPqLJs6 WRy7ZHSapLaxClMkNOC2KnR0 ZEU2kMZbjS4ukXmlarfywG0jPd c+IRj4f7myiYXmSO1eyOJ1TV35 TI54lWFgj5T2oJP2B5EkQSAy qdigfwqjkPL0JWMaGSDgkZ71Xy 5fyVmhNg2yCBTfVHL6GFLviBTv Y4MzzM6fJbLxRDSgYUJbZ4Sg rGAvQCzuG859ANyhPpT4ZLBmqm McN6NpGUTbsSnqAgD3d4G6Rb2P IA75WY33UW06cQTak4H7ePU4 S0WqNMJhyrhhhaqagLY7KSWaXB TcuV17Jr4rfIrzHu6nWFOvCGT2 EDPdzWVeX0QptN7gNlWvZENw YVLeT0WyuMDbLNkaH916MJqfYz V0UUPxjiEhA6HaKLHzhNatJjZ3 w9B4Ly9URv59GQ05FD15hWRq u1C0rVY3H4ZtMDSivzuuicspnY L5DVQrYPQajA68Am2feBonSg1p LVRuRYP5XQWafBXwH2QggF0j WrLsLOApTZYcH6UkrSJtFVmzC9 11ESwkKnZ8VVUapbEbX8YbGEAa yZhjJzQ8t2X2Sa7VKFzzmnt3 L2PlOkqliWS+ZW75YBExMH72aI GswICah3qqwIy9HcTwYVCeENY5 tHciNUyjb1LhODUpF32bqYBp c2U6 (more content not included)... Normal [facility] Coding Summary. CD:[id number] Gh0bWw +PGhlYWQ+YB6AFPAwR66ctEXhl F4CX5mGFZ9FHZGBPOJHFP6FWI3 psEH3JNskZ9HptyVb SjexhOUoHW40FCs1DWS9hGnyGL ctzP5cwCSoQ9m3GjHoXY38oA25 TYbkDYLyYoQ2ScXanvcrnFKe O1qmVaQvvMDuZvj+PHRhYmxlIH mzXFJgTElgOLJhNbVnwZqfJP2o Yi8iJZPkBJMnsOodtDJtHbRw p3zhERJoZZiiIN3rqBpfQ9BcyX I8XLAdo3a4Os93rVN+PHRkIHN0 iLncLLjhh004PoHee6tnPZV5 lNCsGOdkHDG7M37zc1N6WKHxBD EnDEC7mKO1nV1rbUodozgxD9Oy tESzAeE3HQD5yUWahR5qeQpy gngtcR0iQag+C59HWO5UYWKGKH 9NIep3W5FxUawxpWZ+SY32UFMq OJ53pFJddTEuw4sdmMu0FqVf JWEpKTR9oZlkTYbhx7ZnQWXiM9 6hnMUjr1O1KAYjyJledAZfFjZb gLP2fO8fFPckyrveg4coshhb Axvoh5djdg14fJ91E01xRWxySA AkTVH4PMPfUSKqcFbwsi7odF7q Ii8+CIxuj6gdu9uwlJe7XaYj XIDvorDseAmqWRS4c9PqCp58A6 PpyXplg6TlGbq8vg33aEThc3X6 rRW5DVgcBHKqgZ4rRBilFhF3 OMHeHzUxaH35aUTiYIblWt5oxU ojqZoaUE2kBOXfbjytBFRjlB5k RVKzmLAbzRyoAB2sOVZqcyaw h537ObOvKAN5BJSzoTRzR2MkqK 9tPuPrOLJuLKQeG1QhjXGoKMvn U101IJnqRmI3VKWrcuFeQ5Wx WJVamRboAeN7y5H2Zq4Tm3Luyc pbGKH2YBtvOJX0RuT2SvTkKiP2 I4PuFwk1URPrhAhdID6mW9Es LREmuhbxrbpedRA2YOUpSDGryR 95xXPoSYuuFk4pd8V6d521DZNh SZLoaK59Cf0jzVgaQGGatKQN dR6uazmni0qzknsxGnEaPEEaKC m4YFo7IJZhqYmvSwXkHLZ8WyC9 AZM0wKPcjX5pnUpkmjvmnB0o Oyc+E45myK3cDKM5MDS2wwcrFZ OkofQvZN00FB79D8CxAehtvQQt bGU+LRNsfhMmtEyiKW6pQrIv r3sve2ViQBhjM4SnBFSzEVstQf z4RYOvJRN9wLZ5xA6qJDYhFMlu n9T9vUL8B3LknmFwud8ux7bc TLRtSXalX41toQYkj9E8TOPckX N2VBPwzSnkPpHxiK12Boj+PGNv pAvjo2EfRrzin9haf2mxhCi4 VhWzSAVrjxWcmXnkQVP2r0KgGv 04H57cSCuiHRWlQRCcPKKsINEl iCaexg1ifW9tGu5+PGNvbCB3 oQE6bK2aBOPyHvV0XWuvK694Pl UumHIoAkzxd8ave6ewxOg6JvXs XDBmyzGxfBbaOFF1y7QbLn55 A76bDGwlODSeVAOdLPRkNQRifG dixi3vpH1iRy5+AJ2rj7retd60 oD02wWX+CJSkZYF7fRdxWNfh JEHdtK3zDBeqBcV8MYXfGqDgjA 76gVSqKBalUq1bqTtasKzoTM2v AOBxcllmw533YmRnu8jkSKGe xDTeQUrrAAS7J54ug5Q0PAPaHX UnDRG6pIK8wU9yxIkzwuxiuRRw rLavjcHzuKnzNAheXRiyW588 IHRvcDsnPlBhdGllbnQgTmFtZT a2V4UvMln6OICyiPbwUZ4bxVLo FNfoGj1faYmpvAbvXW4gSBRz tuukd559ViSfk8urXLMfxLHyNT qrRXJ0W46im0F4OHRfSNZtITK9 pXZ6nY7zjGdndxabnJOnjTmc drYumZqbVHhzDZghO888ZFWrpR fqYzOztrTdQQFbkNV9AD39BX13 bOOzt6Q9hLA2T3SeAURsvddk xrubfCO0UUUtSBGusT82Lq3bfW zrNv1aCYUnCNB7HORpaUXvN4Fy zR4zMePbAOKbQFIuL6GvqMSv CGhiN430FKocFxM8AUCprbYpH3 MpUDJqnIzzOjV2p0V7Vq0PE4E9 ON23FA89yMIvu2L4dTP4E0Zg ZHWmsedtageemXX0BVWwHLEerO 01Wp8yoBcoVk8jEROqXYW9HLCa rNHyM4JjaZ4mUpHgDAJiDKTc P2PkzCRyWGojZ371AUofExP4VP GjknXrJ0LeHKZktQppZuJ1d2F3 Ea7VFMv6WH23FN10nRDlp6Q0 gQH5G8JyKNUvtmmwjofqyCJ4TX NlXIEziC35Hb7duLhmJb9eZDXw CED7GGMjbVNcG6HpzC8gYrAn GROoBLSpJ9BgnNGaWWdeL209UZ aiMiL4JPCgstCjS1BhCTOhrIvn QhB5l4L9Ae2JPKVcKZ62QHJ8 eWF6HA01ND07W9OlTbmgxVMopI U+PHRhYmxlIHdpZHRoPScxMDAl PnJznDexBC1nNy2aVVMhFXSd ySnlhEDwKiQjt3veLEMwDKdwKA 6kdZtyR0MxwYT9KDRob1y5Fp32 S34dS8DwxYC+CAXruRR1bFT3 uJ2cBfPiZvY0AFtfL073GxPzqP KzWqdmp4cbi6cisLo6FuN5THHa xaCwsIsfCPX0t0AmTb83O60m IHdpZHRoPSIxNSUiIHZhbGlnbj 1kzH9nTq9+LRKydZD6fOD9fZ9k PxPoQuI6MPbvN947KhFkbPDp Bjnht8nte8gsbJw4AhAgWDLtyk JhpJudDQR1p0KiFs98R0SmdItg g5JdAlk6nd47cDMrw5Z7lNM2 A9RcSORufeverILjvNawYG5xCC UghappVMWygL9vRTLaZ7d2ZmYa XfP8SJliN6AfmeL0ZMWsdYTq XIqjVBY4Z31xg2H0JIIeGDDvKO I6mIY5sQ8koHfbvgmuuRHttHuo kiDpyYexMOmyMIokL136USDj tZgwINUfgP4bAKGfiBDeeYvoOR 4wNTBpbjsnPlBFTkNFLCBISUxE IBKHAD84ME40sTRhl4Z0fWN4 U9WkZGYcdwetxlxorTE4QLYtLV EipQ46nOEpGVolWo4oo0M8m020 EATcCEOblA02Lj7ppMpfIMIm sWQEoS8rdzsxj4btfywaLlGhDZ ArOLh6MGt6VLToyTinLoCyOCV1 ZgA7JZB8kFGurJ0axRvmlitg xT2wEvm+PICgCfYaPQg8VGqsxZ Q+OHWrIJJ5rBwlPNicYGUyvD0f CWWsA0l3SnIhGsC4LTvnR0Ca RFArldhfCo87bY8lRlKnMmA8CR wlB5DznjR5VJUjvKIrOHyvZPE1 V31bc0L5VYAyPFHaNAJ6tCC3 mF7uaQajzujthMVerTdnbfWwsL mgMGsgBDwzZ408HOEjbDycXzm9 RFttJWMzML42HZ26qIPxj5J5 dCO7F4KjVBTqfardjlbuaTB9ZB YzYUPkvH05oEDwAYkkFc0tl0N7 k363BNJxLENhsK87Bw4akGud RXKymBUKdB8sgrjlc8grtosnBi VuJGEnECi3WJh6QJWdyLetUxMt CKW0FxT8ONZ4eADypS9vxEpe uwdctL8bClt+SrDkSWbcOT15IW 84lPMnb8Q3dZM5Q1XiRTMdymey fnaurFX6RKHpUDEadK37qLIa ILonTg2df3O8b731KSBaTWAqhY 76Bk7opCiiIQKhxMQYsN1wganc j0wasufcSoOjMANfBPt4OQs0 QVSkxWriDkZsBOA3KiQ2KSE5aR ZjyY6fnWqpgliczY6mLjc+TGFi EANwp4Jrc1PfOW57AP19T5Uz PjwvdGFibGU+PHRhYmxlIHdpZH BvQUuuYFGtXmLbrNhsQK7fHw4j EINlPZAaoEfzyFTlBcDzq4jj ZTQyMWstOY4lsOqoN7YsuKD9EZ Lkf3e1Bo86Q51tT8KkuXS+PGNv nIF4iZQ5kI3rSxUlAjU2EIgl O064QcTqtZNgJvpxa6ojr9gcsX d7YjDhCRZipkAwxPniFAX5f6Yi Hy22B34mQPymDVGcIEBfIAJk IVRdoVpxyl1wlO4eBt0+PGNvbC H4qGF7bP0iMnEiCmU7WUhoR263 QwHrvAYzDvxmY24fM6TsqJS+ SMLcHhv2OEIlkFswEQ4ksEAnZU bhOt1cLPK9WnZmZjFpTXleH2Me GLKofdjbtjgagKQ0ORKgJSDb cR91Dh6txPvaCx9zUFHjZBV6KF ZjxWOjZ5EwhE5pTzNyYAYpNFOg U5HiiETyDLstZ664SEwgMhB7 POIrhyUzG0DzIGHlwUdkPhY5r4 J6Fm8UiThfqRInSM4sVvAiRHa7 T4ZfQaz1IFGsdUfyTT1czSZt TIysYu0jeZridBydSP4tJDIywz egu264GxFps0xwHDCkjEWyAPze EWP3O37nl4B1WCFdTQGmOPF6 vLH3bP4qaJhcnbpcuGAkhQduiw RazHyuDGbwGLvxR108MMMdyDgh JvTECkm5T3WdPgb4OPXkmSud XA2vaJKwTFbaNs8oeYwerRmvWZ 0bDVJiocvon275XaQel9gaQTJo hCXgTKeqQSE6C88gp1A7UWOp NWLpAEB6fEM8cG4lfWrjyfxftL IneTasjqAggMnlPMgoTJyfM862 DEMfwPfxRz9UItc9M6VtHbb2 BBNjvBilQP4spAQuXCxiLq3xuK jemJrgUY0bMOFvllrvb673TcNn q1bhMEZkiIHgTZnuWTV3I08s i3U5PGPvLCLgODO2rNH3dH9atY lnbjogbGVmdDsgdmVydGljYWwt KKtwJ596MXBsoBrfWhOnmTTx OjwvdGQ+TQ22vs89U0DhTqpoQe p4KAHwMUN4wPI1mC8eJHJqUNtq o7T3gYV1R9KjnkBvjg5gy6jg YXBz (more content not included)... Normal [facility] Enteric Panel by PCRon 07-18 C. coli+jejuni+upsalien sis DNA ULICES+non-probe Ql (Stl) Not detected Normal [facility] Comment on above: Result Comment: Test ing was performed utilizing reverse fruit coordinator (RT), polymerase chain reaction (PCR), and array [...] nulcleic acid test. Performed By: #### 4 [id number], [id number], [id number], [id number], [id number], [id number] ####[facility] [address] [place] [address] E. coli stx1+stx2 genes ULICES+non-probe Ql (Stl) Negative Normal [facility] Comment on above: Performed By: #### 4 [id number], [id number], [id number], [id number], [id number], [id number] ####[facility] [address] [place] [address] Enteric Panel by PCR Negative Normal [facility] Enteric Panel Intrl QC Pass Normal [facility] Comment on above: Result Comment: Test ing was performed utilizing reverse fruit coordinator (RT), polymerase chain reaction (PCR), and array [...] 1 and 2. Performed By: #### 4 [id number], [id number], [id number], [id number], [id number], [id number] ####[facility] [address] [place] [address] Norovirus genogroup I+II RNA ULICES+non-probe Ql (Stl) Detected Abnormal [facility] Comment on above: Result Comment: Resu lts Called To [facility] for Dr. Jama By [facility] And Read Back For Confirmation On 07/18/2022 08:49:23 EDT. Performed By: #### 4 [id number], [id number], [id number], [id number], [id number], [id number] ####[facility] [address] [place] [address] Rotavirus A RNA ULICES+non-probe Ql (Stl) Not detected Normal [facility] Comment on above: Performed By: #### 4 [id number], [id number], [id number], [id number], [id number], [id number] ####[facility] [address] [place] [address] S. enterica+bongori DNA ULICES+non-probe Ql (Stl) Not detected Normal [facility] Comment on above: Result Comment: This test result should be correlated with clinical presentations and medical history by a healthcare provider to determine its clinical significance. Performed By: #### 4 [id number], [id number], [id number], [id number], 28402469, [id number] ####[facility] [address] [place] [address] Shigella species+EIEC invasion plasmid antigen H ipaH gene ULICES+non-probe Ql (Stl) Not detected Normal [facility] Comment on above: Performed By: #### 4 [id number], [id number], [id number], [id number], [id number], [id number] ####[facility] [address] [place] [address] V. cholerae+parahaemoly ticus+vulnificus DNA ULICES+non-probe Ql (Stl) Not detected Normal [facility] Comment on above: Performed By: #### 4 [id number], [id number], [id number], [id number], [id number], [id number] ####[address] [place] [address] Y. enterocolitica DNA ULICES+non-probe Ql (Stl) Not detected Normal [facility] Comment on above: Performed By: #### 4 [id number], [id number], 55754718, [id number], 93846463, [id number] ####[facility] [address] [place] [address] C. diff by PCRon 07-17-2022 Clostridium difficile by PCR see comment Invalid Interpretation Code [facility] Comment on above: Result Comment: Unab le [...] its clinical significance. Performed By: #### 4 [id number], [id number], 02459748, [id number], 80244669, [id number] ####[facility] [address] [place] [address] Fecal WBC Lactoferrinon 07-02 Fecal WBC Lactoferrin Positive Abnormal Negative [facility] Comment on above: Result Comment: The semi-quantitative detection of elevated levels of fecal lactoferrin is a marker for fecal leukocytes and an indication of intestinal inflammation. Performed By: #### 4 [id number], [id number], [id number], [id number], [id number] ####[facility] [address] [place] [address] Consent for Treatmenton 07-02 Consent for Treatment [id number]:127 Normal [facility] Gastroenterology Office/Clin ic Noteon 07-15-2022 Gastroenterology Office/Clinic Note Chief Complaint f/u ER- abd pain, diarrhea and vomiting HPI Staff This is a 76 year old female who presents today for a referral by Sue for abnormal radiology testing. Patient seen in [place] 01/2022 for complaints of diarrhea, abdominal pain and nausea.- CT and labs completed History of Present Illness Sylvia presents today for abdominal pain, diarrhea, and vomiting. She was recently seen in the [place] emergency room with abdominal pain, diarrhea, and vomiting. She notes that she had a heart transplant in [place] in 2017. Afterwards she experienced diarrhea which [...] She was prescribed Creon 24 mg at [facility] in 2017, due to being diagnosed [...] patient had a recent CT scan at [facility] that showed a small lesion in the [...] by h (more content not included)... Normal [facility] Comment on above: Result Comment: Elec tronically Signed By: Giovanna Cuellar\.br\Date and Time Signed: 07/12/22 13:57 EDT\.br\Electronically Co-Signed By: Eddie JAMA MD\.br\Date and Time Co-Signed: 07/15/22 21:14 EDT Ambulatory Visit Summaryon 0 07-12-2022 Ambulatory Visit Summary SYLVIA HANNA Erin :1945 Visit Date:07/12/2022 Ambulatory Visit Instructions Your [...] Pancreatic insufficiency Pancreatic lesion Valvular heart disease Kathie Maciel [facility] 07-05-2022 CNPN Telephone ([facility] -- SYLVIA HANNA ([id number]) 1945 F Date Time Provider Department 07/05/22 SHO CROWLEY [facility] During your visit today, we recorded the following information about you: Sho Crowley APRN.ODETTE 07/05/2022 10:48 AM Signed 07/03/22 labs: FK: [...] care with another team. Sho Crowley APRN, [facility] Pager: [phone] July 05, 2022 10:42 AM Post Heart [...] transplant. No Dr Caldera: Rfl: TACROLIMUS/FK-506 BL [[id number]] Order #: [id number] FUTURE Prescriptions as of 07/05/2022 - tacrolimus [...] mg by mouth three times daily. 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 Normal [facility] BOX TEST SENT OUTon 07-03-20 22 SENT TO REF LAB 07/03/2022 Normal [facility] Comment on above: Performed By: #### E RANDALL PINON #### [facility] [address] [place] [address] Dr. Hardeep Rivera CBC AUTO DIFFon 07-03-2022 BASO # 0.0 103/ul Normal 0.0-0.1 [facility] Comment on above: Performed By: #### C BC #### [facility] [address] [place] [address] Dr. Hardeep Rivera Basophils/100 WBC (Bld) 0.3 % Normal 0.2-2.0 [facility] Comment on above: Performed By: #### C BC #### [facility] [address] [place] [address] Dr. Hardeep Rivera EO # 0.1 103/ul Normal 0.0-0.7 [facility] Comment on above: Performed By: #### C BC #### [facility] [address] [place] [address] Dr. Hardeep Rivera Eosinophils/100 WBC (Bld) 0.9 % Normal 0.9-7.0 [facility] Comment on above: Performed By: #### C BC #### [facility] [address] [place] [address] Dr. Hardeep Rivera Erythrocyte distribution width (RBC) [Ratio] 12.2 % Normal 11.0-15.0 [facility] Comment on above: Performed By: #### C BC #### [facility] [address] [place] [address] Dr. Hardeep Rivera Hematocrit (Bld) [Volume fraction] 42.3 % Normal 36.0-48.0 [facility] Comment on above: Performed By: #### C BC #### [facility] [address] [place] [address] Dr. Hardeep Rivera Hemoglobin (Bld) [Mass/Vol] 14.0 g/dL Normal 12.0-16.0 [facility] Comment on above: Performed By: #### C BC #### [facility] [address] [address] [address] Hardeep Rivera IG # 0.04 10e3/ul Critically high 0.00-0.03 [facility] Comment on above: Performed By: #### C BC #### [facility] [address] [place] [address] Dr. Hardeep Rivera IG % 0.5 % Normal 0.0-0.5 [facility] Comment on above: Performed By: #### C BC #### [facility] [address] [place] [address] Dr. Hardeep Rivera LYMPH # 0.8 103/ul Critically low 1.2-3.8 [facility] Comment on above: Performed By: #### C BC #### [facility] [address] [place] [address] Dr. Hardeep Rivera Lymphocytes/100 WBC (Bld) 10.9 % Critically low 20.5-60.0 [facility] Comment on above: Performed By: #### C BC #### [facility] [address] [place] [address] Dr. Hardeep Rivera MANUAL DIFF REQ NO Normal [facility] Comment on above: Performed By: #### C BC #### [facility] [address] [place] [address] Dr. Hardeep Rivera MCH (RBC) [Entitic mass] 29.7 pg Normal 26.7-34.0 [facility] Comment on above: Performed By: #### C BC #### [facility] [address] [place] [address] Dr. Hardeep Rivera MCHC (RBC) [Mass/Vol] 33.1 g/dL Normal 29.9-35.2 [facility] Comment on above: Performed By: #### C BC #### [facility] [address] [place] [address] Dr. Hardeep Rivera MCV (RBC) [Entitic vol] 89.8 fL Normal 81.0-99.0 [facility] Comment on above: Performed By: #### C BC #### [facility] [address] [place] [address] Dr. Hardeep Rivera MONO # 0.9 103/ul Critically high 0.3-0.8 [facility] Comment on above: Performed By: #### C BC #### [facility] [address] [place] [address] Dr. Hardeep Rivera Monocytes/100 WBC (Bld) 11.1 % Normal 1.7-12.0 [facility] Comment on above: Performed By: #### C BC #### [facility] [address] [place] [address] Dr. Hardeep Rivera NEUT # 5.8 103/ul Normal 1.4-6.5 [facility] Comment on above: Performed By: #### C BC #### [facility] [address] [place] [address] Dr. Hardeep Rivera Neutrophils/100 WBC (Bld) 76.3 % Critically high 43.0-75.0 [facility] Comment on above: Performed By: #### C BC #### [facility] [address] [place] [address] Dr. Hardeep Rivera Platelet mean volume (Bld) [Entitic vol] 9.5 fL Normal 9.5-13.5 [facility] Comment on above: Performed By: #### C BC #### [facility] [address] [place] [address] Dr. Hardeep Rivera PLT 191 103/ul Normal 150-450 [facility] Comment on above: Performed By: #### C BC #### [facility] [address] [place] [address] Dr. Hardeep Rivera RBC 4.71 106/ul Normal 4.20-5.40 [facility] Comment on above: Performed By: #### C BC #### [facility] [address] [place], [place] [address] Dr. Hardeep Rivera WBC 7.6 103/ul Normal 4.0-11.0 [facility] Comment on above: Performed By: #### C BC #### [facility] [address] [place], [place] [address] Dr. Hardeep Clark 07-03-2022 CNPN Telephone ([facility]) -- SYLVIA HANNA ([id number]) 1945 F Date Time Provider Department 07/03/22 SOY MCCANN [facility] During your visit today, we recorded the following information about you: Linden Weems 07/03/2022 1:02 PM Signed Patient had labs drawn 07/03/22, uploaded to [employer]. Allergies As of Date: 07/03/2022 Noted Allergy [...] mg by mouth three times daily. - unkkeg-xniakowc-mjzspog (CREON) 24,000-76,000 -120,000 unit cpDR Take 3 [...] [J18.1] 12/03/2014 09/02/2019 DREW (acute kidney injury) ([facility]) [N17.9] 12/03/2014 Anxiety disorder [F41.9] 07/05/2015 Pain [R52] 11/14/2017 09/02/2019 Encounter Status:Closed by LINDEN WEEMS on 07/03/22 Normal [facility] PROF CHEM 8 (BAS METB)on Anion gap [Moles/Vol] 12.9 mmol/L Normal [facility] Comment on above: Performed By: #### HARI OLSONRO #### [facility] [address] [place] [address] Dr. Hardeep Rivera Calcium [Mass/Vol] 9.0 mg/dL Normal 8.5-10.1 [facility] Comment on above: Performed By: #### HARI OLSONRO #### [facility] [address] [address] [address] Hardeep Rivera Chloride [Moles/Vol] 98 mmol/L Normal 98-107 [facility] Comment on above: Performed By: #### HARI OLSONRO #### [facility] [address] [place] [address] Dr. Hardeep Rivera CO2 [Moles/Vol] 28.1 mmol/L Normal 21.0-32.0 [facility] Comment on above: Performed By: #### HARI OLSONRO #### [facility] [address] [place] [address] Dr. Hardeep Rivera Creatinine [Mass/Vol] 1.64 mg/dL Critically high 0.55-1.02 [facility] Comment on above: Performed By: #### HARI OLSONRO #### [facility] [address] [place] [address] Dr. Hardeep Rivera EGFR-AF NIUEAN 37 mL/min/1.73m2 Critically low >=60 [facility] Comment on above: Performed By: #### HARI OLSONRO #### [facility] [address] [place] [address] Dr. Hardeep Rivera EGFR-NON AF NIUEAN 30 mL/min/1.73m2 Critically low >=60 [facility] Comment on above: Performed By: #### HARI OLSONRO #### [facility] [address] [place] [address] Dr. Hardeep Rivera Glucose [Mass/Vol] 114 mg/dL Critically high 74-106 [facility] Comment on above: Performed By: #### AKSHAT OLSONICRO #### [facility] [address] [address] [address] Hardeep Rivera Potassium [Moles/Vol] 4.0 mmol/L Normal 3.5-5.1 [facility] Comment on above: Performed By: #### E COLLINSR, UMICRO #### [facility] [address] [place] [address] Dr. Hardeep Rivera Sodium [Moles/Vol] 135 mmol/L Critically low 136-145 Th [facility] Comment on above: Performed By: #### E COLLINSR, UMICRO #### [facility] [address] [place] [address] Dr. Hardeep Rivera Urea nitrogen [Mass/Vol] 24.0 mg/dL Critically high 7.0-18.0 [facility] Comment on above: Performed By: #### E KATHRIN, UMICRO #### [facility] [address] [place] [address] Dr. Hardeep Rivera Urea nitrogen/Creatinine [Mass ratio] 14.6 mg/mg Normal [facility] Comment on above: Performed By: #### E KATHRIN, UMICRO #### [facility] [address] [place] [address] Dr. Hardeep Rivera Tacrolimus Bld-ncon 2021 Tacrolimus (Bld) [Mass/Vol] 12.4 ng/mL Normal 5.0-20.0 [facility] Comment on above: Order Comment: Speci [...] situation. Test performed by chemiluminescent immunoassay using [employer]. Performed By: #### 1 [id number] ####[facility] LABCL[facility] [id number] [address] [address] [place] MG MAMM SCREEN 3D TRISHA CADon 05-28-2022 MG MAMM SCREEN 3D TRISHA CAD Patient: SYLVIA HANNA. Exam Date: 05/28/2022 : 1945 Gender:F Ordering : DR TAO DAVIS . Admission #: [id number] Family : Order #: [id number] CLICK HERE TO VIEW EXAM RADIOLOGY REPORT [...] Treatments None Family Cancers None LOCATION: [facility] BREAST COMPOSITION: Heterogeneously dense,which may obscure small [...] Ibrahim MD on 05/28/2022 at 10:20 Normal [facility] Physician Referralon 022 Physician Referral [id number]:127 Normal [facility] CNPMary Kay 05-08-2022 CNPN Telephone ([facility]) -- SYLVIA HANNA ([id number]) 1945 F Date Time Provider Department 05/08/22 LOIDA MATHIAS [facility] During your visit today, we recorded the following information about you: Linden Weems 05/08/2022 11:50 AM Signed Patient had labs drawn 05/07/22, uploaded to scanned docs. Linden Weems Administrative Field Collector Loida Mathias APRN.CNP 05/08/2022 3:21 PM Signed [...] transplant. No Dr Caldera: Rfl: TACROLIMUS/FK-506 BL [[id number]] Order #: [id number] FUTURE Prescriptions as of 05/08/2022 - tacrolimus [...] mg by mouth three times daily. - fdjmfx-leosxmfp-kbcvlzo (CREON) 24,000-76,000 -120,000 unit cpDR Take 3 [...] 05/19/2014 [facility] (more content not included)... Normal [facility] BOX TEST SENT OUTon 05-07-20 22 SENT TO REF LAB 05/07/2022 Normal [facility] Comment on above: Performed By: #### RANDALL OLSON #### [facility] [address] [address] [address] Hardeep Rivera CBC AUTO DIFFon 05-07-2022 BASO # 0.0 103/ul Normal 0.0-0.1 [facility] Comment on above: Performed By: #### RANDALL OLSON #### [facility] [address] [place] [address] Dr. Hardeep Rivera Basophils/100 WBC (Bld) 0.4 % Normal 0.2-2.0 [facility] Comment on above: Performed By: #### RANDALL OLSON #### [facility] [address] [place] [address] Dr. Hardeep Rivera EO # 0.1 103/ul Normal 0.0-0.7 [facility] Comment on above: Performed By: #### RANDALL OLSON #### [facility] [address] [place] [address] Dr. Hardeep Rivera Eosinophils/100 WBC (Bld) 1.0 % Normal 0.9-7.0 [facility] Comment on above: Performed By: #### RANDALL OLSON #### [facility] [address] [place] [address] Dr. Hardeep Rivera Erythrocyte distribution width (RBC) [Ratio] 12.6 % Normal 11.0-15.0 [facility] Comment on above: Performed By: #### RANDALL OLSON #### [facility] [address] [place] [address] Dr. Hardeep Rivera Hematocrit (Bld) [Volume fraction] 44.0 % Normal 36.0-48.0 [facility] Comment on above: Performed By: #### RANDALL OLSON #### [facility] [address] [place] [address] Dr. Hardeep Rivera Hemoglobin (Bld) [Mass/Vol] 14.0 g/dL Normal 12.0-16.0 [facility] Comment on above: Performed By: #### RANDALL OLSON #### [facility] [address] [place] [address] Dr. Hardeep Rivera IG # 0.02 10e3/ul Normal 0.00-0.03 [facility] Comment on above: Performed By: #### RANDALL OLSON #### [facility] [address] [address] [address] Hardeep Rivera IG % 0.3 % Normal 0.0-0.5 [facility] Comment on above: Performed By: #### Deedee PINON UMICRO #### [facility] [address] [address] [address] Hardeep Rivera LYMPH # 0.6 103/ul Critically low 1.2-3.8 [facility] Comment on above: Performed By: #### E KATHRIN, UMICRO #### [facility] [address] [place] [address] Dr. Hardeep Rivera Lymphocytes/100 WBC (Bld) 8.2 % Critically low 20.5-60.0 [facility] Comment on above: Performed By: #### Deedee PINON UMICRO #### [facility] [address] [place] [address] Dr. Hardeep Rivera MANUAL DIFF REQ NO Normal [facility] Comment on above: Performed By: #### Deedee PINON UMICRO #### [facility] [address] [place] [address] Dr. Hardeep Rivera MCH (RBC) [Entitic mass] 29.4 pg Normal 26.7-34.0 [facility] Comment on above: Performed By: #### Deedee PINON UMICRO #### [facility] [address] [place] [address] Dr. Hardeep Rivera MCHC (RBC) [Mass/Vol] 31.8 g/dL Normal 29.9-35.2 [facility] Comment on above: Performed By: #### Deedee PINON, UMICRO #### [facility] [address] [place] [address] Dr. Hardeep Rivera MCV (RBC) [Entitic vol] 92.2 fL Normal 81.0-99.0 [facility] Comment on above: Performed By: #### Deedee PINON, UMICRO #### [facility] [address] [place] [address] Dr. Hardeep Rivera MONO # 0.8 103/ul Normal 0.3-0.8 [facility] Comment on above: Performed By: #### RANDALL OLSON #### [facility] [address] [place] [address] Dr. Hardeep Rivera Monocytes/100 WBC (Bld) 9.6 % Normal 1.7-12.0 [facility] Comment on above: Performed By: #### HARI OLSONRO #### [facility] [address] [place] [address] Dr. Hardeep Rivera NEUT # 6.3 103/ul Normal 1.4-6.5 [facility] Comment on above: Performed By: #### HARI OLSONRO #### [facility] [address] [place] [address] Dr. Hardeep Rivera Neutrophils/100 WBC (Bld) 80.5 % Critically high 43.0-75.0 [facility] Comment on above: Performed By: #### RANDALL OLSON #### [facility] [address] [place] [address] Dr. Hardeep Rivera Platelet mean volume (Bld) [Entitic vol] 10.1 fL Normal 9.5-13.5 [facility] Comment on above: Performed By: #### RANDALL OLSON #### [facility] [address] [place] [address] Dr. Hardeep Rivera PLT 188 103/ul Normal 150-450 [facility] Comment on above: Performed By: #### HARI OLSONRO #### [facility] [address] [place] [address] Dr. Hardeep Rivera RBC 4.77 106/ul Normal 4.20-5.40 [facility] Comment on above: Performed By: #### HARI OLSONRO #### [facility] [address] [place] [address] Dr. Hardeep Rivera WBC 7.8 103/ul Normal 4.0-11.0 [facility] Comment on above: Performed By: #### HARI OLSONRO #### [facility] [address] [place] [address] Dr. Hardeep Rivera PROF CHEM 8 (BAS METB)on Anion gap [Moles/Vol] 11.9 mmol/L Normal [facility] Comment on above: Performed By: #### E KATHRIN UMICRO #### [facility] [address] [address] [address] Hardeep Rivera Calcium [Mass/Vol] 8.7 mg/dL Normal 8.5-10.1 [facility] Comment on above: Performed By: #### E COLLINSR, UMICRO #### [facility] [address] [address] [address] Hardeep Rivera Chloride [Moles/Vol] 99 mmol/L Normal 98-107 [facility] Comment on above: Performed By: #### E KATHRIN, UMICRO #### [facility] [address] [address] [address] Hardeep Rivera CO2 [Moles/Vol] 27.1 mmol/L Normal 21.0-32.0 [facility] Comment on above: Performed By: #### Deedee PINON, UMICRO #### [facility] [address] [address] [address] Hardeep Rivera Creatinine [Mass/Vol] 1.62 mg/dL Critically high 0.55-1.02 [facility] Comment on above: Performed By: #### Deedee PINON, UMICRO #### [facility] [address] [address] [address] Hardeep Rivera EGFR-AF NIUEAN 37 mL/min/1.73m2 Critically low >=60 [facility] Comment on above: Performed By: #### E COLLINSR, UMICRO #### [facility] [address] [address] [address] Hardeep Rivera EGFR-NON AF NIUEAN 31 mL/min/1.73m2 Critically low >=60 [facility] Comment on above: Performed By: #### E COLLINSR, UMICRO #### [facility] [address] [address] [address] Hardeep Rivera Glucose [Mass/Vol] 73 mg/dL Critically low 74-106 Th [facility] Comment on above: Performed By: #### E KATHRIN UMICRO #### [facility] [address] [place] [address] Dr. Hardeep Rivera Potassium [Moles/Vol] 4.0 mmol/L Normal 3.5-5.1 [facility] Comment on above: Performed By: #### HARI OLSONRO #### [facility] [address] [place] [address] Dr. Hardeep Rivera Sodium [Moles/Vol] 134 mmol/L Critically low 136-145 Th [facility] Comment on above: Performed By: #### HARI OLSONRO #### [facility] [address] [place] [address] Dr. Hardeep Rivera Urea nitrogen [Mass/Vol] 33.0 mg/dL Critically high 7.0-18.0 [facility] Comment on above: Performed By: #### HARI OLSONRO #### [facility] [address] [place] [address] Dr. Hardeep Rivera Urea nitrogen/Creatinine [Mass ratio] 20.4 mg/mg Normal [facility] Comment on above: Performed By: #### HARI OLSONRO #### [facility] [address] [place] [address] Dr. Hardeep Rivera TACROLIMUS/FK-506 BLon 05-07 Tacrolimus (Bld) [Mass/Vol] 3.4 ng/mL Low 5.0-20.0 [facility] Comment on above: Order Comment: Speci [...] situation. Test performed by chemiluminescent immunoassay using [employer]. Performed By: #### F K506 ####[facility] LABCLIA [id number] [address] OF [facility] Eduardo 05-03-2022 CNPN Telephone ([facility]) -- SYLVIA HANNA ([id number]) 1945 F Date Time Provider Department 05/03/22 SHO CROWLEY [facility] During your visit today, we recorded the following information about you: Sho Crowley APRN.PSYCH ASSISTANT 05/03/2022 2:58 PM Signed received phone call from [facility] Cardiology group requesting patient's Tacrolimus levels from 04/24. Faxed results to [phone]. Allergies As of Date: 05/03/2022 Noted Allergy [...] mg by mouth three times daily. - jbqwoh-hitmfydf-uzjidso (CREON) 24,000-76,000 -120,000 unit cpDR Take 3 [...] [J18.1] 12/03/2014 09/02/2019 DREW (acute kidney injury) ([facility]) [N17.9] 12/03/2014 Anxiety disorder [F41.9] 07/05/2015 Pain [R52] 11/14/2017 09/02/2019 Encounter Status:Closed by SHO CROWLEY on 05/03/22 Normal [facility] BOX TEST SENT OUTon 04-24-20 SENT TO REF LAB 04/24/2022 Normal [facility] Comment on above: Performed By: #### RANDALL OLSON #### [facility] [address] [address] [address] Hardeep Clark 04-24-2022 ODETTEN Telephone ([facility]UL[facility]) -- SYLVIA HANNA ([id number]) 1945 F Date Time Provider Department 04/24/22 LOIDA MATHIAS [facility] During your visit today, we recorded the following information about you: Linden Weems 04/24/2022 1:31 PM Signed Patient left message that she had labs drawn today. Linden Weems Administrative Field Collector Post Heart Transplant J3-4 Loida Mathias APRN.ODETTE 04/26/2022 11:25 AM Signed Received FK level 4.5, drawn 04/24 My chart message sent to patient. Advised to remain on current dose and keep our office updated re: her plans for post transplant follow up. Loida Mathias APRN.PSYCH ASSISTANT April 26, 2022 11:24 AM Component Latest [...] mg by mouth three times daily. - xkzzgp-ktyrmmgr-zxwqmqr (CREON) 24,000-76,000 -120,000 unit cpDR Take 3 [...] [J18.1] 12/03/2014 09/02/2019 DREW (acute kidney injury) ([facility]) [N17.9] 12/03/2014 Anxiety disorder [F41.9] 07/05/2015 Pain [R52] 11/14/2017 09/02/2019 Encounter Status:Closed by LINDEN WEEMS on 04/24/22 Normal [facility] TACROLIMUS/FK-506 BLon 04-24 Tacrolimus (Bld) [Mass/Vol] 4.5 ng/mL Low 5.0-20.0 [facility] Comment on above: Order Comment: Speci [...] Test performed by chemiluminescent immunoassay using [employer]. Performed By: #### F K506 ####[facility] LABCL[facility] [id number] [address] STATES OF [facility] [address] (TACROLIMUS) WHOLE BLO ODon 04-11-2022 Tacrolimus (FK506), Blood 7.3 ng/mL Normal 2.0-20.0 [facility] Comment on above: Result Comment: Trou gh (immediately following transplant) 15.0 . Trough (steady state, 2 weeks or more after transplant): 3.0 - 8.0 . Performed by LC-MS/MS technology. Performed By: #### RANDALL OLSON #### [facility] [address] [place] [address] Dr. Hardeep Rivera BOX TEST SENT OUTon 04-09-20 SENT TO REF LAB 04/09/2022 Normal [facility] Comment on above: Performed By: #### RANDALL OLSON #### [facility] [address] [place] [address] Dr. Hardeep Rivera CBC AUTO DIFFon 04-09-2022 BASO # 0.0 103/ul Normal 0.0-0.1 [facility] Comment on above: Performed By: #### RANDALL OLSON #### [facility] [address] [place] [address] Dr. Hardeep Rivera Basophils/100 WBC (Bld) 0.1 % Critically low 0.2-2.0 [facility] Comment on above: Performed By: #### Deedee PINON UMICRO #### [facility] [address] [place] [address] Dr. Hardeep Rivera EO # 0.1 103/ul Normal 0.0-0.7 [facility] Comment on above: Performed By: #### Deedee PINON UMICRO #### [facility] [address] [place] [address] Dr. Hardeep Rivera Eosinophils/100 WBC (Bld) 1.2 % Normal 0.9-7.0 [facility] Comment on above: Performed By: #### Deedee PINON UMICRO #### [facility] [address] [place] [address] Dr. Hardeep Rivera Erythrocyte distribution width (RBC) [Ratio] 12.6 % Normal 11.0-15.0 [facility] Comment on above: Performed By: #### HARI OLSONRO #### [facility] [address] [place] [address] Dr. Hardeep Rivera Hematocrit (Bld) [Volume fraction] 44.1 % Normal 36.0-48.0 [facility] Comment on above: Performed By: #### AKSHAT OLSONICRO #### [facility] [address] [place] [address] Dr. Hardeep Rivera Hemoglobin (Bld) [Mass/Vol] 14.1 g/dL Normal 12.0-16.0 [facility] Comment on above: Performed By: #### Deedee PINON UMICRO #### [facility] [address] [place] [address] Dr. Hardeep Rivera IG # 0.02 10e3/ul Normal 0.00-0.03 [facility] Comment on above: Performed By: #### Deedee PINON UMICRO #### [facility] [address] [place] [address] Dr. Hardeep Rivera IG % 0.3 % Normal 0.0-0.5 [facility] Comment on above: Performed By: #### RANDALL OLSON #### [facility] [address] [place] [address] Dr. Hardeep Rivera LYMPH # 0.7 103/ul Critically low 1.2-3.8 [facility] Comment on above: Performed By: #### HARI OLSONRO #### [facility] [address] [place] [address] Dr. Hardeep Rivera Lymphocytes/100 WBC (Bld) 10.8 % Critically low 20.5-60.0 [facility] Comment on above: Performed By: #### HARI OLSONRO #### [facility] [address] [place] [address] Dr. Hardeep Rivera MANUAL DIFF REQ NO Normal [facility] Comment on above: Performed By: #### HARI OLSONRO #### [facility] [address] [place] [address] Dr. Hardeep Rivera MCH (RBC) [Entitic mass] 29.3 pg Normal 26.7-34.0 [facility] Comment on above: Performed By: #### RANDALL OLSON #### [facility] [address] [place] [address] Dr. Hardeep Rivera MCHC (RBC) [Mass/Vol] 32.0 g/dL Normal 29.9-35.2 [facility] Comment on above: Performed By: #### HARI OLSONRO #### [facility] [address] [place] [address] Dr. Hardeep Rivera MCV (RBC) [Entitic vol] 91.7 fL Normal 81.0-99.0 [facility] Comment on above: Performed By: #### HARI OLSONRO #### [facility] [address] [place] [address] Dr. Hardeep Rivera MONO # 0.7 103/ul Normal 0.3-0.8 [facility] Comment on above: Performed By: #### HARI OLSONRO #### [facility] [address] [place] [address] Dr. Hardeep Rivera Monocytes/100 WBC (Bld) 10.8 % Normal 1.7-12.0 [facility] Comment on above: Performed By: #### Deedee PINON UMICRO #### [facility] [address] [place] [address] Dr. Hardeep Rivera NEUT # 5.2 103/ul Normal 1.4-6.5 [facility] Comment on above: Performed By: #### Deedee PINON UMICRO #### [facility] [address] [place] [address] Dr. Hardeep Rivera Neutrophils/100 WBC (Bld) 76.8 % Critically high 43.0-75.0 [facility] Comment on above: Performed By: #### Deedee PINON UMICRO #### [facility] [address] [place] [address] Dr. Hardeep Rivera Platelet mean volume (Bld) [Entitic vol] 9.8 fL Normal 9.5-13.5 [facility] Comment on above: Performed By: #### AKSHAT OLSONICRO #### [facility] [address] [place] [address] Dr. Hardeep Rivera PLT 200 103/ul Normal 150-450 [facility] Comment on above: Performed By: #### Deedee PINON UMICRO #### [facility] [address] [place] [address] Dr. Hardeep Rivera RBC 4.81 106/ul Normal 4.20-5.40 [facility] Comment on above: Performed By: #### Deedee PINON UMICRO #### [facility] [address] [place] [address] Dr. Hardeep Rivera WBC 6.7 103/ul Normal 4.0-11.0 [facility] Comment on above: Performed By: #### Deedee PINON UMICRO #### [facility] [address] [place] [address] Dr. Hardeep Rivera PROF CHEM 8 (BAS METB)on Anion gap [Moles/Vol] 9.1 mmol/L Normal [facility] Comment on above: Performed By: #### HARI OLSONRO #### [facility] [address] [place] [address] Dr. Hardeep Rivera Calcium [Mass/Vol] 8.3 mg/dL Critically low 8.5-10.1 [facility] Comment on above: Performed By: #### AKSHAT OLSONICRO #### [facility] [address] [place] [address] Dr. Hardeep Rivera Chloride [Moles/Vol] 100 mmol/L Normal 98-107 [facility] Comment on above: Performed By: #### HARI OLSONRO #### [facility] [address] [place] [address] Dr. Hardeep Rivera CO2 [Moles/Vol] 28.1 mmol/L Normal 21.0-32.0 [facility] Comment on above: Performed By: #### HARI OLSONRO #### [facility] [address] [place] [address] Dr. Hardeep Rivera Creatinine [Mass/Vol] 1.54 mg/dL Critically high 0.55-1.02 [facility] Comment on above: Performed By: #### HARI OLSONRO #### [facility] [address] [place] [address] Dr. Hardeep Rivera EGFR-AF NIUEAN 40 mL/min/1.73m2 Critically low >=60 [facility] Comment on above: Performed By: #### Deedee PINON UMICRO #### [facility] [address] [place] [address] Dr. Hardeep Rivera EGFR-NON AF NIUEAN 33 mL/min/1.73m2 Critically low >=60 [facility] Comment on above: Performed By: #### HARI OLSONRO #### [facility] [address] [place] [address] Dr. Hardeep Rivera Glucose [Mass/Vol] 122 mg/dL Critically high 74-106 T [facility] Comment on above: Performed By: #### AKSHAT OLSONICRO #### [facility] [address] [address] [address] Hardeep Rivera Potassium [Moles/Vol] 4.2 mmol/L Normal 3.5-5.1 [facility] Comment on above: Performed By: #### E RUR, UMICRO #### [facility] [address] [place] [address] Dr. Hardeep Rivera Sodium [Moles/Vol] 133 mmol/L Critically low 136-145 Th [facility] Comment on above: Performed By: #### E RUR, UMICRO #### [facility] [address] [place] [address] Dr. Hardeep Rivera Urea nitrogen [Mass/Vol] 28.0 mg/dL Critically high 7.0-18.0 [facility] Comment on above: Performed By: #### E RUR, UMICRO #### [facility] [address] [place] [address] Dr. Hardeep Rivera Urea nitrogen/Creatinine [Mass ratio] 18.2 mg/mg Normal [facility] Comment on above: Performed By: #### E RUR, UMICRO #### [facility] [address] [place] [address] Dr. Hardeep Rivera TACROLIMUS/FK-506 BLon 04-09 Tacrolimus (Bld) [Mass/Vol] 9.9 ng/mL Normal 5.0-20.0 [facility] Comment on above: Order Comment: Speci [...] situation. Test performed by chemiluminescent immunoassay using [employer]. Performed By: #### F K506 ####[facility] [id number] [address] [address] [facility] Eduardo 10-10-2021 CNPN Telephone (JULIAN MARICEL ISACC) -- SYLVIA HANNA ([id number]) 1945 F Date Time Provider Department 10/10/21 LOIDA MATHIAS CARD [facility] ISACC During your visit today, we recorded the following information about you: Linden Weems 10/10/2021 11:57 AM Signed Patient had labs drawn today Linden Weems Administrative Field Collector Linden Weems 10/11/2021 10:57 AM Signed Labs uploaded to scanned docs. Linden Weems Administrative Field Collector Loida Mathias APRN.CNP 10/12/2021 12:28 PM Signed [...] transplant. No Dr Caldera: Rfl: TACROLIMUS/FK-506 BL [[id number]] Order #: [id number] FUTURE Prescriptions as of 10/12/2021 - tacrolimus [...] mg by mouth three times daily. - usjhfy-anxhknqo-kkczkrd (CREON) 24,000-76,000 -120,000 unit cpDR Take 3 [...] [R10.31] 04/29/2014 09/02/2019 Diabetes mellitus, type II ([facility]) [E11.9] 04/29/2014 DREW (acute kidney injury) ([facility]) [N17.9] 05/06/2014 05/19/2014 Orthostasis [I95.1] 05/06/2014 05/19/2014 Gastroenteritis [K52.9] 05/18/2014 Right groin pain [R10.31] 05/18/2014 Diarrhea [R19.7] 11/29/2014 09/02/2019 Prophylactic immunotherapy [Z29.8] 11/29/2014 Pneumonia [J18.9] 11/29 (more content not included)... Normal [facility] Tacrolimus / [id number] Tacrolimus / FK506 10.1 ng/mL Normal 5.0-20.0 [facility] Comment on above: Result Comment: Thes [...] Test performed by chemiluminescent immunoassay using [employer]. Performed By: #### F K506 ####[facility] [id number] [place], [place] [id number] [facility] 09-13-2021 CNPN Telephone (JULIAN [facility] ISCAC) -- SYLVIA HANNA ([id number]) 1945 F Date Time Provider Department 09/13/21 ARELIS NEWSOME CARD [facility] ISACC During your visit today, we recorded the following information about you: Linden Weems 09/13/2021 2:52 PM Signed S/w pt, due to transportation and financial constraints she is unable to come to [place] for appointments. Patient is working with her medical case worker to establish care with a local resident program specialist (had previously been followed by one in [place]).Dr Rice has agreed and plan going forward will be to do a phone visit with pt on 10/03 and she will follow up in the interim with her local Security Systems Manager. Sending pt mailers and lab order, she will get those done as soon as she can. Linden Weems Administrative Field Collector Allergies As of Date: 09/13/2021 Noted Allergy [...] mg by mouth three times daily. - giynuq-gctwmjor-buqojlg (CREON) 24,000-76,000 -120,000 unit cpDR Take 3 [...] Status:Closed by LINDEN WEEMS on 09/13/21 [facility] OBSOLETEon 09-12-2021 OBSOLETE Refill (JULIAN CONNELLY MAI ) -- SYLVIA HANNA ([id number]) 1945 F Date Time Provider Department 09/12/21 SANDRITA GUERRERO [facility] ISACC During your visit today, we [...] mg by mouth three times daily. - rykmfi-whedrxgd-idabvoh (CREON) 24,000-76,000 -120,000 unit cpDR Take 3 [...] Status:Closed by SANDRITA GUERRERO on 09/12/21 Normal [facility] Vital Signs Date Time Vital Sign Value Performing Clinician Dami charles 04-08-2023 06:45-0400 Diastolic blood pressure 76 mm[Hg] Richard Roby [facility] 04-08-2023 06:45-0400 Heart rate 59 /min Richard Roby [facility] 04-08-2023 06:45-0400 Hourly Rounding Richard Roby [facility] 04-08-2023 06:45-0400 Mean blood pressure 106 mm[Hg] Richard Roby [facility] 04-08-2023 06:45-0400 Respiratory rate 18 /min Richard Roby [facility] 04-08-2023 06:45-0400 SaO2% (BldA) [Mass fraction] 96 % Richard Roby [facility] 04-08-2023 06:45-0400 Systolic blood pressure 167 mm[Hg] Richard Roby [facility] 04-08-2023 05:30-0400 Diastolic blood pressure 88 mm[Hg] Richard Roby [facility] 04-08-2023 05:30-0400 Heart rate 52 /min Richard Roby [facility] 04-08-2023 05:30-0400 Hourly Rounding Richard Roby [facility] 04-08-2023 05:30-0400 Mean blood pressure 114 mm[Hg] Richard Roby [facility] 04-08-2023 05:30-0400 Respiratory rate 18 /min Richard Roby [facility] 04-08-2023 05:30-0400 SaO2% (BldA) [Mass fraction] 95 % Richard Roby [facility] 04-08-2023 05:30-0400 Systolic blood pressure 167 mm[Hg] Richard Roby [facility] 04-08-2023 04:39-0400 Diastolic blood pressure 90 mm[Hg] Richard Roby [facility] 04-08-2023 04:39-0400 Heart rate 56 /min Richard Roby [facility] 04-08-2023 04:39-0400 Hourly Rounding Richard Roby [facility] 04-08-2023 04:39-0400 Mean blood pressure 112 mm[Hg] Richard Roby [facility] 04-08-2023 04:39-0400 Respiratory rate 17 /min Richard Roby [facility] 04-08-2023 04:39-0400 SaO2% (BldA) [Mass fraction] 94 % Richard Roby [facility] 04-08-2023 04:39-0400 Systolic blood pressure 155 mm[Hg] Richard Roby [facility] 04-07-2023 21:48-0400 Respiratory rate 18 /min Richard Roby [facility] 04-07-2023 21:19-0400 Body temperature 98.06 [degF] Richard Ca [facility] 04-07-2023 21:19-0400 Heart rate 65 /min [facility] Roby [facility] 04-07-2023 21:19-0400 Respiratory rate 19 /min [facility] Roby [facility] Encounters Encounter Date Encounter Type Care Provider Facility Start: 07-01-2024 End: 07-01-2024 ambulatory [facility] Start: 06-18-2024 End: 06-18-2024 ambulatory NON STAFF [facility] Work Phone: Start: 06-18-2024 End: 06-18-2024 Departed Referred [facility] Start: 02-03-2024 End: 02-03-2024 ambulatory [facility] Start: 11-12-2023 End: 11-12-2023 ambulatory [facility] Start: 08-07-2023 End: 08-07-2023 ambulatory [facility] Start: 04-07-2023 End: 04-08-2023 Emergency department patient visit Richard GoodmanLaura Ca [place] Start: 04-07-2023 End: 04-08-2023 Emergency department patient visit Richard GoodmanLaura Roby [facility] Start: 03-05-2023 End: 03-05-2023 ambulatory SCOT ROGERS Facility:[facility] Start: 02-26-2023 End: 02-27-[address] ANISHA DINH Facility:[facility] Start: 02-14-2023 End: 02-14-2023 ambulatory NANCY Sanchez Facility:[facility] Start: 02-13-2023 End: 02-14-2023 ambulatory SCOT ROGERS Facility:[facility] Start: 02-09-2023 End: 02-10-[address] ANISHA DINH Facility:[facility] Start: 01-09-2023 End: 01-10-[address] TAO DAVIS . Facility:[facility] Start: 12-13-2022 End: 12-14-2022 ambulatory SCOT ROGERS Facility:[facility] Start: 12-11-2022 End: 12-12-[address] TAO DAVIS . Facility:[facility] Start: 11-14-2022 End: 11-14-2022 ambulatory SCOT ROGERS Facility:[facility] Start: 10-03-2022 End: 10-03-2022 ambulatory SCOT ROGERS Facility:[facility] Start: 09-08-2022 Refill Sandrita Guerrero APRN.PSYCH ASSISTANT Work Phone: Cardiology Comment on above: Refill Request Start: 08-04-2022 End: 08-04-2022 ambulatory NANCY REYES . Facility:[facility] Start: 08-02-2022 Telephone encounter Loida Mathias APRN.PSYCH ASSISTANT Work Phone: Cardiology Comment on above: Heart Transplant Fol low Up (Labs/) Start: 08-02-2022 End: 08-03-[address] TAO DAVIS . Facility:[facility] Start: 07-27-[address] TAO DAVIS . Facili ty:[facility] Start: 07-17-2022 End: 07-18-2022 ambulatory [facility] [place] Start: 07-16-2022 End: 07-17-2022 ambulatory [facility] Facility[facility] Start: 07-16-2022 End: 07-16-2022 Patient encounter procedure [facility] Start: 07-12-2022 End: 07-13-2022 ambulatory [facility] Facility:[facility] Start: 07-05-2022 Telephone encounter Sho Crowley APRN.PSYCH ASSISTANT Work Phone: Cardiology Comment on above: Heart Transplant Fol low Up; Lab Meeting Start: 07-03-2022 Telephone encounter Soy Ross RN Ca rdiology Comment on above: Heart Transplant Fol low Up (labs) Start: 07-03-2022 End: 07-04-[address] TAO DAVIS . Facility: Start: 05-28-2022 End: 05-29-[address] TAO DAVIS . Facility:[facility] Start: 05-23-2022 ambulatory [facility] Start: 05-08-2022 Telephone encounter Loida Mathias APRN.PSYCH ASSISTANT Work Phone: Cardiology Comment on above: Heart Transplant Fol low Up (labs) Start: 05-07-2022 End: 05-08-[address] TAO DAVIS . Facility: Start: 04-24-2022 Telephone encounter Loida Mathias APRN.PSYCH ASSISTANT Work Phone: Cardiology Comment on above: Heart Transplant Fol low Up Start: 04-24-2022 End: 04-25-[address] TAO DAVIS . Facility: Start: 04-20-[address] TAO DAVIS . Facili ty: Start: 04-11-2022 ambulatory Loida fontaine APRN.PSYCH ASSISTANT Work Phone: [facility] Start: 04-11-2022 Follow-up encounter Loida Mathias APRN.PSYCH ASSISTANT Work Phone: Cardiology Comment on above: Heart Transplant Fol low Up (Labs) Start: 04-09-2022 End: 04-10-[address] TAO DAVIS . Facility:[facility] Start: 04-06-2022 Orders Only Loida fontaine APRN.PSYCH ASSISTANT Work Phone: Cardiology Comment on above: Heart replaced by tr ansplant (HCC) (Primary Dx) Start: 04-04-2022 Refill Loida fontaine APRN.PSYCH ASSISTANT Work Phone: Cardiology Comment on above: Rx Refills Start: 10-03-2021 End: 10-03-2021 [facility] Procedures Date Procedure Procedure Detail Performing Clinician Start: 08-10-2013 H/O: heart recipient Heart transplan arianna Loida Mathias [employer] D[employer]ER.PSYCH ASSISTANT Work Phone: H/O: heart recipient Heart transplanted ( [facility]) Loida Mathias SPRAY DRIER.PSYCH ASSISTANT Work Phone: H/O: heart recipient Heart repla nitish by transplant ([facility]) Loida Mathias SPRAY DRIER.PSYCH ASSISTANT Work Phone: H/O: heart recipient Heart transplanted ( [facility]) Loida Mathias SPRAY DRIER.PSYCH ASSISTANT Work Phone: H/O: heart recipient Heart transplanted ( [facility]) Loida Mathias SPRAY DRIER.PSYCH ASSISTANT Work Phone: H/O: heart recipient Heart transplanted ( [facility]) Sho Crowley SPRAY DRIER.PSYCH ASSISTANT Work Phone: H/O: heart recipient Hx of heart transplant( Confirmed ) Eddie JAMA Plan of Treatment Date Care Activity Detail Author Start: 08-02-2022 Influenza vaccination INFLUENZA (#1) [facility] Start: 07-19-2022 End: 09-18-2022 Tacrolimus [Mass/volume] in Blood TACROLIMUS/FK-506 BL Lab Routine Heart transplanted ([facility]) Expected: 07/19/2022 (Approximate), Expires: 09/18/2022 [facility] Work Phone: Comment on above: Expected: 07/19/2022 (Approximate), Expires: 09/18/2022 Start: 05-21-2022 End: 07-21-2022 TACROLIMUS/FK-506 BL TACROLIMUS/FK-506 BL Lab Routine Heart transplanted ([facility]) Expected: 05/21/2022, Expires: 07/21/2022 [facility] Work Phone: Comment on above: Expected: 05/21/2022 , Expires: 07/21/2022 Start: 04-23-2022 End: 06-23-2022 TACROLIMUS/FK-506 BL TACROLIMUS/FK-506 BL Lab Routine Heart transplanted ([facility]) Expected: 04/23/2022, Expires: 06/23/2022 [facility] Work Phone: Comment on above: Expected: 04/23/2022 , Expires: 06/23/2022 Start: 04-09-2022 End: 06-09-2022 CBC W Auto Differential panel - Blood CBC + DIFF Lab Routine Heart replaced by transplant ([facility]) Expected: 04/09/2022, Expires: 06/09/2022 [facility] Work Phone: Comment on above: Expected: 04/09/2022 , Expires: 06/09/2022 Start: 04-09-2022 End: 06-09-2022 Comprehensive metabolic 2000 panel - Serum or Plasma COMP METABOLIC PANEL Lab Routine Heart replaced by transplant ([facility]) Expected: 04/09/2022, Expires: 06/09/2022 [facility] Work Phone: Comment on above: Expected: 04/09/2022 , Expires: 06/09/2022 Start: 04-09-2022 End: 04-06-2023 HEART/LUNG REC POST TX DSA HEART/LUNG REC POST TX DSA ALLOGEN Routine Heart replaced by transplant ([facility]) Expected: 04/09/2022, Expires: 04/06/2023 [facility] Work Phone: Comment on above: Expected: 04/09/2022 , Expires: 04/06/2023 Start: 04-09-2022 End: 06-09-2022 LIPID PANEL BASIC LIPID PANEL BASIC Lab Routine Heart replaced by transplant ([facility]) Expected: 04/09/2022, Expires: 06/09/2022 [facility] Work Phone: Comment on above: Expected: 04/09/2022 , Expires: 06/09/2022 Start: 04-09-2022 End: 06-09-2022 Magnesium [Mass/volume] in Serum or Plasma MAGNESIUM BLD Lab Routine Heart replaced by transplant ([facility]) Expected: 04/09/2022, Expires: 06/09/2022 [facility] Work Phone: Comment on above: Expected: 04/09/2022 , Expires: 06/09/2022 Start: 04-09-2022 End: 06-09-2022 TACROLIMUS/FK-506 BL TACROLIMUS/FK-506 BL Lab Routine Heart replaced by transplant (HCC) Expected: 04/09/2022, Expires: 06/09/2022 [facility] Work Phone: Comment on above: Expected: 04/09/2022 , Expires: 06/09/2022 Start: 04-09-2022 End: 06-09-2022 URINALYSIS, DIPSTICK ONLY URINALYSIS, DIPSTICK ONLY Lab Routine Heart replaced by transplant (HCC) Expected: 04/09/2022, Expires: 06/09/2022 [facility] Work Phone: Comment on above: Expected: 04/09/2022 , Expires: 06/09/2022 Start: 12-02-2021 ADVANCE DIRECTIVE DISCUSSION ADVANCE DIRECTIVE DISCUSSION [facility] Start: 09-26-2021 COVID-19 VACCINE (3 - Pfizer risk 4-dose series) COVID-19 VACCINE (3 - Pfizer risk 4-dose series) [facility] Start: 09-26-2021 COVID-19 VACCINE (3 - Pfizer risk series) COVID-19 VACCINE (3 - Pfizer risk series) [facility] Start: 03-04-2020 Hepatitis B surface antibody level LDL CHOLESTEROL [facility] Start: 06-14-2015 Hemoglobin A1c/Hemoglobin.total in Blood HBA1C [facility] Start: 11-01-2013 PNEUMOCOCCAL: 65+ (3 - PCV) PNEUMOCOCCAL: 65+ (3 - PCV) [facility] Start: 2009 ADULT PREVNAR ADULT PREVNAR [facility] Start: 1994 SHINGRIX VACCINE (1 of 2) SHINGRIX VACCINE (1 of 2) [facility] Start: 1963 SHINGRIX VACCINE (1 of 2) SHINGRIX VACCINE (1 of 2) [facility] Start: 1963 Urine microalbumin profile DTAP,TDAP,TD (1 - Tdap) [facility] Start: 1962 ANNUAL PCP TEAM SENIOR SOLUTIONS ENGINEER BRENNAN DISEASE VISIT ANNUAL PCP TEAM CHRONIC DISEASE VISIT [facility] Start: 1962 BP CONTROLLED (<130/80) BP CONTROLLE D (<130/80) [facility] Start: 1954 3 comp foot exam completed DIABETIC FOOT EXAM [facility] Start: 1954 Hepatitis B screening URINE ALBUMIN:CREATININE RATIO [facility] [facility] Start: 1955 Hepatitis C antibody , confirmatory test DILATED RETINAL EXAM [facility] Start: 1950 PNEUMOCOCCAL: 65+ (1 - PCV) PNEUMOCOCCAL: 65+ (1 - PCV) [facility] Immunizations Immunization Date Immunization Notes Care Provider Fa cility 06-05-2022 SARS-CoV-2 mRNA (muxrpzzdnkj-jrln-omgnx se) vaccine Morgan SALAM [facility] 08-29-2021 SARS-CoV-2 (COVID-19 ) mRNA BNT-162b2 vax Morgan SALAM [facility] 08-02-2021 SARS-CoV-2 (COVID-19 ) mRNA BNT-162f7 vax Morgan SALAM [facility] 07-05-2021 influenza virus vaccine, unspecified formulation Morgan SALAM [facility] 09-29-2020 influenza, unspecifi ed formulation Morgan SALAM [facility] 07-24-2020 influenza virus vaccine, unspecified formulation Morgan SALAM [facility] 09-02-2017 influenza virus vaccine, unspecified formulation Morgan SALAM [facility] 08-07-2017 pneumococcal conjuga te vaccine, 13 valent Morgan SALAM [facility] 08-14-2016 influenza virus vaccine, unspecified formulation Morgan SALAM [facility] 09-29-2015 pneumococcal conjuga te vaccine, 13 valent Morgan SALAM [facility] 08-04-2015 influenza virus vaccine, unspecified formulation Morgan SALAM [facility] 09-15-2014 influenza virus vaccine, whole virus Loida Iammarino SPRAY DRIER.PSYCH ASSISTANT Work Phone: [facility] 09-15-2014 influenza, whole Morgan SALAM [facility] 11-01-2012 pneumococcal polysaccharide vaccine, 23 valent Loida Iammarino SPRAY DRIER.PSYCH ASSISTANT Work Phone: [facility] 12-28-2009 novel tymtyrtoa-V1R1-65, all formulations Loida Iammarino SPRAY DRIER.PSYCH ASSISTANT Work Phone: [facility] Work Phone: 08-19-2009 influenza virus vaccine, unspecified formulation Loida Iammarino SPRAY DRIER.PSYCH ASSISTANT Work Phone: [facility] 09-01-2006 influenza virus vaccine, unspecified formulation Loida Iammarino SPRAY DRIER.PSYCH ASSISTANT Work Phone: [facility] Work Phone: 09-01-2006 pneumococcal polysaccharide vaccine, 23 valent Loida Iammarino SPRAY DRIER.PSYCH ASSISTANT Work Phone: [facility] Work Phone: NEGATED: Highlighted row has not occurred!07-12-2022 influenza virus vaccine, unspecified formulation Morgan SALAM [facility] Payers Date Payer Category Payer Self-pay 2022 Medicare UHC MEDICARE UHC DUAL COMPLETE HMO SNP [id number] 2022-Present [phone] [address] [place] [address] Medicare [id number] 2022 Medicare UHC MEDICARE UHC DUAL COMPLETE HMO SNP [id number] 2022-Present [phone] [address] [place] [address] Medicare [id number] 2020 Unknown [id number] 1959 Medicaid [id number] 1959 Medicare [id number] 1959 Self-pay [id number] 1959 Unknown [id number] 1944 Unknown [id number] 2.16.840.1.699059.3.579.2.593 1944 Unknown [id number] 2.16.840.1.159990.3.579.2.593 1944 Unknown [id number] 2.16.840.1.053196.3.579.2.593 1944 Unknown [id number] 2.16.840.1.267937.3.579.2.593 1944 Unknown [id number] 2.16.840.1.466568.3.579.2.593 1944 Unknown [id number] 2.16.840.1.349989.3.579.2.593 1944 Unknown [id number] 2.16.840.1.219313.3.579.2.593 1944 Unknown [id number] 2.16.840.1.384155.3.579.2.593 1944 Unknown [id number] 2.16.840.1.764045.3.579.2.593 1944 Unknown [id number] 2.16.840.1.442533.3.579.2.593 1944 Unknown [id number] 2.16.840.1.528850.3.579.2.593 1944 Unknown [id number] 2.16.840.1.722916.3.579.2.593 1944 Unknown [id number] 2.16.840.1.328446.3.579.2.593 1944 Unknown [id number] 2.16.840.1.823458.3.579.2.593 1944 Unknown [id number] 2.16.840.1.183264.3.579.2.593 1944 Unknown [id number] 2.16.840.1.422761.3.579.2.593 1944 Unknown [id number] 2.16.840.1.564026.3.579.2.593 1944 Unknown [id number] 2.16.840.1.965738.3.579.2.593 1944 Unknown [id number] 2.16.840.1.709597.3.579.2.727 1944 Unknown [id number] 2.16.840.1.059883.3.579.2.727 1944 Unknown [id number] 2.16.840.1.966830.3.579.2.727 1944 Unknown [id number] 2.16.840.1.982343.3.579.2.727 1944 Unknown [id number] 2.16.840.1.316119.3.579.2.727 Unknown [id number] 2.16.840.1.695467.3.579.2.593 Social History Date Type Detail Facility Start: 05-13-2019 Tobacco smoking stat [facility] Ex-smoker [facility] Work Phone: History of tobacco use Cigarette Smoker [facility] Work Phone: Start: 09-07-2019 Alcohol intake Current non-dr principal archaeologist of alcohol (finding) [facility] Start: 1945 Sex Assigned At Not on file [facility] Start: 07-12-2022 Never smoked t obacco (finding) [facility] Never [facility] Female [facility] History of tobacco use Current smoker [facility] Start: 05-13-2019 Cigarettes smoked current (pack per day) - Reported 0.3 [facility] Start: 05-13-2019 Tobacco use and exposure Smokeless tobacco non-user [facility] Start: 1945 Sex Assigned At Female F [facility] Functional Status Date Assessment Result Facility 04-07-2023 Functional Status N/A [facility] Clinical Notes 11-14-2017 to 07-01-2024 Note Date & Type Note Facility 07-01-2024 Note [place] Cardiology - [facility] Subjective Sylvia Hanna is a 78 y.o. year old female patient being seen for follow up [facility] for syncope. Says she's been having dizzy spells, but she tries to hurry and sit down when this happens. Patient cannot recall many details about this episode, but says she was feeling her heart pound and she was SOB at this time. She has not had tacrolimus level drawn since 03/31/2024. Patient Active Problem List Diagnosis Nonischemic congestive [...] Hypertension Coronary heart disease Valvular heart disease Kidney stone Family History Family history unknown: Yes Social History Tobacco Use Smoking status: Never Smokeless tobacco: Never Substance Use Topics Alcohol use: Not Currently Drug use: Never [facility] Visit of 10/30/2021: Sylvia is seen as [...] in 2007. She is followed by the [facility] cardiology service. She has had no history [...] Perfusion Study: Normal. 2. There is no (more content not included)... [facility] 02-03-2024 Note [place] Cardiology - [facility] Subjective Sylvia Hanna is a 78 y.o. year old female patient being seen for follow up [facility]. She was seen as inpatient consult [...] in 2007. She is followed by the [facility] cardiology service. She has had no history [...] the prior echocardiographi (more content not included)... [facility] 11-12-2023 Note [place] Cardiology - [facility] Subjective Sylvia Hanna is a 77 y.o. year old female [...] in 2007. She is followed by the [facility] cardiology service. She has had no history [...] Stress Testing (1 (more content not included)... [facility] 10-28-2023 Note [facility] 08-07-2023 Note [place] Cardiology - [facility] Subjective Sylvia Hanna is a 77 y.o. year old female [...] in 2007. She is followed by the [facility] cardiology service. She has had no history [...] scan. [address] (more content not included)... [facility] 07-23-2023 Note ta [facility] 04-08-2023 Hospital Discharge instructions Patient Education [...] ?Adrenal gland problems. ?Metabolic conditions, such as Letts's disease or syndrome of inappropriate antidiuresis (SIAD). [...] improvement. Follow these instructions at home: Take vqkc-zki-imrhbcn and prescription medicines only as told by [...] provider. Document Revised: 05/29/2022 Document Reviewed: 05/29/2022 [employer] Patient Education 2022 [facility]. 04/08/2023 08:56:02 Nonspecific Chest Pain, Adult Nonspecific [...] Follow these instructions at home: Medicines Take nagr-wny-oazcekg and prescription medicines only as told by [...] provider. Document Revised: 02/01/2022 Document Reviewed: 02/01/2022 [employer] Patient Education 2022 [facility]. Follow Up Care 04/07/2023 21:19:10 With:SCOT SUE Address: [address] [place] [address]- [phone] Business (1) When:Within 3 Day(s) [facility] 04-07-2023 Evaluation + Plan note Extrac [...] Hr. XR Chest Single View [facility]09-01-2022 Miscellaneous Notes* Telephone Encounter - Linden Weems - 08/02/2022 1:41 PM EDT Patient had labs drawn 08/02/22, uploaded to scanned docs. [facility] Miscellaneous Notes* Telephone Encounter - Sho Crowley APRN.CNP - 07/05/2022 10:40 AM EDT 07/03/22 labs: [...] another team. Sho Crowley APRN, ODETTE Pager: [phone] July 05, 2022 10:42 AM Post Heart Transplant Nurse Practitioner documented in this encounterMer[facility]08-02-2022 Miscellaneous Notes* Telephone Encounter - Linden Weems - 07/03/2022 12:59 PM EDT Patient had labs drawn 07/03/22, uploaded to scanned docs. documented in this encounterMer[facility]06-07-2022 Miscellaneous Notes* Addendum Note - Loida [...] uploaded to scanned docs. Linden Weems Administrative Field Collector documented in this encounterMer[facility]05-24-2022 Miscellaneous Notes* Telephone Encounter - Linden Weems - 04/24/2022 1:31 PM EDT Patient left message that she had labs drawn today. Linden Weems Administrative Field Collector Post Heart Transplant J3-4 documented in this encounterMer[facility]05-11-2022 NoteHNO ID: [id number] Author: Loida Mathias APRN.CNP Service: ? Author [...] reports she can no longer travel to [place]. She does not have a ride, she has no family or friends to lean on. She has made an appt with a local Security Systems Manager. She will ask him if there are any transplant doctors or centers near her and potentially need to transfer her care. She will keep us updated. Loida Mathias APRN.PSYCH ASSISTANT April 12, 2022 2:25 [facility]05-11-2022 History of Present illness Narrative* Loida Mathias APRN.PSYCH ASSISTANT - 04/11/2022 3:42 PM EDT Received outside [...] reports she can no longer travel to [place]. Shedoes not have a ride, she has no family or friends to lean on. She has made an appt with a local Security Systems Manager. She will ask him if there are any transplant doctors or centers near her and potentiallyneed to transfer her care. She will keep us updated. Loida Mathias APRN.CNP April 12, 2022 2:25 PM documented in this encounterMer[facility]11-08-2021 NoteHNO ID: [id number] Author: Loida Mathias APRN.CNP Service: ? Author [...] Loida Mathias APRN.CNP October 09, 2021 4:10 [facility]11-02-2021 NoteHNO ID: [id number] Author: Nicolette Rice MD Service: ? Author Type: Physician Type: Progress Notes Filed: 10/03/2021 4:12 PM Note Text: Heart, Vascular AND Thoracic [place] Department of Cardiovascular Medicine TELEPHONE VISIT PROGRESS NOTE This is a telephone encounter initiated for an established patient, parent or guardian not originating from a related Evaluation AND Management service provided within the previous 7 days nor leading to an Evaluation AND Management service or procedure within the next 24 hours or soonest available appointment. Sylvia Hanna has consented to this telephone encounter. Persons [...] in ~6 months. Will see a local resident program specialist at the end of the month. Data Reviewed: No new labs Assessment: She is doing well clinically and her BP is controlled. ? Plan: 1. She was instructed to continue the current medical program. 2. RTC per post-transplant protocol. Total Time Spent: 21-30 minutes Nicolette Rice, [facility]12-14-2017 History of Past illness Narrative* Problem [...] of this encounter (statuses as of 04/05/2022) [facility] History of Past illness Narrative* Problem [...] of this encounter (statuses as of 04/06/2022) [facility] of Past illness Narrative* Problem [...] of this encounter (statuses as of 04/12/2022) [facility] of Past illness Narrative* Problem [...] of this encounter (statuses as of 04/24/2022) [facility] of Past illness Narrative* Problem [...] of this encounter (statuses as of 05/08/2022) [facility] of Past illness Narrative* Problem [...] of this encounter (statuses as of 07/03/2022) [facility] of Past illness Narrative* Problem [...] of this encounter (statuses as of 07/05/2022) [facility] of Past illness Narrative* Problem [...] of this encounter (statuses as of 08/02/2022) [facility] History of Past illness Narrative* Problem [...] of this encounter (statuses as of 09/11/2022) [facility] Future Appointments Appointment Date:08/01/2022 01:50:00 PM Scheduled Provider: Location:[facility] Appointment Type:Surgery FT Diagnostic Tests Pending * CMV Antibody IgM 07/16/22 Future Scheduled Tests Laboratory* Fecal WBC Lactoferrin 07/12/22 * Giardia lamblia, Direct Detection EIA 07/12/22 * O & P Exam, Routine 07/12/22 * Clostridium difficile by PCR 07/12/22 * Enteric Panel by PCR 07/12/22 [facility] Heart transplanted (HCC) Heart replaced by transplant documented in this encounter [facility] note* Diagnosis Heart replaced by transplant (HCC)- Primary Heart replaced by transplant documented in this encounter [facility] note* Diagnosis Heart replaced by transplant (HCC)- Primary Heart replaced by transplant Heart transplanted (HCC) Heart replaced by transplant [facility] Diagnosis Heart transplanted (HCC) Heart replaced by transplant [facility]* Diagnosis Heart transplanted (HCC) Heart replaced by transplant documented in this encounter [facility]Evaluation noteNo assessment information availableMemorial [facility] Work Phone: Hospital course Narrative No data available for this section [facility] Dis[facility] instructions No data available for this section [facility] No data available for this section [facility] Advance Directives No Advanced Directives Records FoundDocuments on File Type Date Recorded Patient Catalog Librarian Expl anation Advance Directive(s) 11/14/2017 5:44 AM Advance Directive(s) 01/02/2012 12:00 AM Advance Directive(s) 01/17/2007 12:00 AM Documents on File Type Date Recorded Patient Catalog Librarian Expl anation Advance Directive(s) 01/02/2012 Advance Directive(s) [...] or prosecute any alcohol or drug abuse patient.[facility] HospitalIn the event this information is protected by the Federal Confidentiality of Alcohol and Drug Abuse Patient Records regulations: The Federal rules restrict any use of the information to criminally investigate or prosecute any alcohol or drug abuse patient.[facility] HospitalIn the event this information is protected by the Federal Confidentiality of Alcohol and Drug Abuse Patient Records regulations: The Federal rules restrict any use of the information to criminally investigate or prosecute any alcohol or drug abuse patient.[facility] HospitalIn the event this information is protected by the Federal Confidentiality of Alcohol and Drug Abuse Patient Records regulations: The Federal rules restrict any use of the information to criminally investigate or prosecute any alcohol or drug abuse patient.[facility] HospitalIn the event this information is protected by the Federal Confidentiality of Alcohol and Drug Abuse Patient Records regulations: The Federal rules restrict any use of the information to criminally investigate or prosecute any alcohol or drug abuse patient.[facility] HospitalIn the event this information is protected by the Federal Confidentiality of Alcohol and Drug Abuse Patient Records regulations: The Federal rules restrict any use of the information to criminally investigate or prosecute any alcohol or drug abuse patient.[facility] HospitalIn the event this information is protected by the Federal Confidentiality of Alcohol and Drug Abuse Patient Records regulations: The Federal rules restrict any use of the information to criminally investigate or prosecute any alcohol or drug abuse patient.[facility] HospitalIn the event this information is protected by the Federal Confidentiality of Alcohol and Drug Abuse Patient Records regulations: The Federal rules restrict any use of the information to criminally investigate or prosecute any alcohol or drug abuse patient.[facility] HospitalIn the event this information is protected by the Federal Confidentiality of Alcohol and Drug Abuse Patient Records regulations: The Federal rules restrict any use of the information to criminally investigate or prosecute any alcohol or drug abuse patient.[facility] Reason for Visit (unrecogniz ed section and content) Reason Comments Rx Refills Reason Comments Heart Transplant Follow Up Labs Reason Comments Heart Transplant Follow Up Reason Comments Heart Transplant Follow Up labs Reason Comments Heart Transplant Follow Up Lab Meeting Reason Comments Refill Request Care Teams (unrecognized sec tion and content) Flash Developer Relationship Specialty Start Date End Date Tao Davis MD [address] [place] [address] PCP - General Family Practice 05/13/19 Flash Developer Relationship Specialty Start Date End Date Tao Davis MD [address] [place] [address] PCP - General Family Practice 05/13/19 Flash Developer Relationship Specialty Start Date End Date Tao Davis MD [address] [place] [address] PCP - General Family Practice 05/13/19 Flash Developer Relationship Specialty Start Date End Date Tao Davis MD [address] [place] [address] PCP - General Family Practice 05/13/19 Flash Developer Relationship Specialty Start Date End Date Tao Davis MD [address] [place] [address] PCP - General Family Practice 05/13/19 Flash Developer Relationship Specialty Start Date End Date Tao Davis MD [address] [place] [address] PCP - General Family Medicine 05/13/19 Team Status: Inactive Member Role Status Dates NON STAFF Attending Provider Active Start: Ju palmira 2023 End: June 18, 2024 INFORMATION SOURCE (unrecogn ized section and content) DATE CREATED AUTHOR 09/01/2022 [facility] DATE CREATED AUTHOR AUTHOR'S ORGANIZ ATION 03/09/2023 [facility] DATE CREATED AUTHOR AUTHOR'S ORGANIZ ATION 04/08/2023 [facility] DATE CREATED AUTHOR AUTHOR'S ORGANIZ ATION 06/21/2024 [facility] DATE CREATED AUTHOR AUTHOR'S ORGANIZ ATION 07/03/2024 [facility] Goals (unrecognized section and content) Goals may [...] BE BASED ON THE PRIMARY CLINICAL RECORDS. [facility]. provides no warranty or guarantee of the accuracy or completeness of information in this document.
[2024-07-10 00:07] LABS: Tacrolimus (FK506), Blood 13.7 ng/mL (2.0-20.0)
== END 2024-07-07 08:33 | disposition home or self-care (01) ==
LOC: LAB 08:33
PROVIDERS: PCP Family Medicine; Visit Provider Internal Medicine Interventional Cardiology
DX: Z94.1 Heart transplant status (principal)
CPT/HCPCS: 36415; 80197

== ENCOUNTER 2024-07-08 11:50 | Outpatient (OUT) | payer MEDICARE, SELFPAY ==
--- OUTSIDE RECORDS SUMMARY | 2024-07-08 12:01 | XMS_ITS | CCD ---
Author Organization [facility] ion Partnership [facility] Care Team Providers Care Recordings Librarian Name Role Phone Tao Davis MD Primary Care Provider [phone] SCOT ROGERS Primary Care Physician Tao Davis MD Primary Care Provider [phone] NICOLETTE RICE Attending UnavailARELIS Rivera Referring Unavailable TAO DAVIS Primary Care Unavailable Tao Davis MD Primary Care Provider [phone] TAO HEBERT Primary Care Unavailable [...] Care Unavailable SCOT ROGERS Admitting Unavailable SCOT ROGRES Attending Unavailable TORIBIO ., DR BURGER Primary [...] Unavailable HOY ., DR BURGER Attending Unavailable DUNDEE, DR JAZLYN Marcelino Consulting Unavailable SCOT ROGERS [...] INOPHEN] Drug Allergy 05-18-20 14 GI Upset [facility] Work Phone: (11 sources) Promethazine; Translations: [PROMETHAZINE HCL] Drug Allergy 10-11-20 05 Other: See Comments [facility] (3 sources) Levamisole; Translations: [Phenergan] Drug Allergy 04-07-20 13 [facility] Repository (1 source) Morphine Drug Allergy [facility] (1 source) No Known Medication Allergies; Translations: [No Known Medication Allergies] Propensity to adverse reactions (disorder) [facility] Repository (2 sources) Promethazine; Translations: [promethazine] Drug Allergy 08-12-20 22 Loss of consciousness (finding) [facility] Medications Current Medications Medication Drug [...] Episodic Other aftercare (1 source) Other intermediate project manager (current) drug therapy; Translations: [OTH COOKER MEAL CURRENT DRUG THERAPY] Onset: 02-18-2023 Episodic Other [...] Onset: 08-04-2022 Episodic Other aftercare (1 source) custodial (current) use of aspirin; Translations: [COOKER MEAL CURRENT USE OF ASPIRIN] Onset: 08-08-2022 Episodic [...] Range Facility Office Visiton 07-01-2024 Follow-up visit [id number] Sylvia Hanna 1945 F Date Provider Department Center 07/01/2024 ANISHA JACOBS Family History Family history unknown: Yes Level of Service:90642 [place] OFFICE/OUTPATIENT ESTABLISHED MOD MDM 30 MIN Normal [facility] Activated partial thrombopla stin time (aPTT) in platelet poor plasma by coagulation aOrdered By: NON STAFF on 06-18-2024 aPTT Coag (PPP) [Time] 31.8 s 25.1-36.5 [facility] Comment on above: A hematocrit value g reater than 55% may lead to inaccurate results in coagulation testing. Patients having hematocrit values >55% require a special collection tube for coagulation studies. Please contact the laboratory at [phone] for redraw instructions. INR in Platelet poor plasma by Coagulation assayOrdered By: NON STAFF on 06-18-2024 INR Coag (PPP) [Relative time] 1.3 {INR} Normal [facility] Comment on above: INR Therapeutic Rang e [...] #### P T, PTT #### [facility] [address] [place] [address] Partial Thromboplastin Timeo n 06-18-2024 aPTT Coag (Bld) [Time] 31.8 s Normal 25.1-36.5 [facility] Comment on above: Result Comment: A he matocrit value greater than 55% may lead to inaccurate results in coagulation testing. Patients having hematocrit values >55% require a special collection tube for coagulation studies. Please contact the laboratory at [phone] for redraw instructions. PERFORMED BY: [place] [address] PATHOLOGIST LIFE INSURANCE AGENT ANDREIA ARRINGTON M.D. Performed By: #### P T, PTT #### [facility] [address] [place] [address] Prothrombin time (PT)Ordered By: NON STAFF on 06-18-2024 PT Coag (PPP) [Time] 14.4 s High 9.0-12.9 [facility] Comment on above: A hematocrit value g reater than 55% may lead to inaccurate results in coagulation testing. Patients having hematocrit values >55% require a special collection tube for coagulation studies. Please contact the laboratory at [phone] for redraw instructions. Result Comment: A he matocrit value greater than 55% may lead to inaccurate results in coagulation testing. Patients having hematocrit values >55% require a special collection tube for coagulation studies. Please contact the laboratory at [phone] for redraw instructions. Performed By: #### P T, PTT #### [facility] [address] [id number] [facility] 36on 04-06-2024 36 I reviewed the blood [...] labs as ordered at last visit. Normal [facility] Telephoneon 04-06-2024 Telephone [id number] Sylvia Hanna 1945 F Date Provider Department Center 04/06/2024 ANISHA JACOBS Family History Family history unknown: Yes Normal [facility] Orders Onlyon 03-18-2024 Orders Only [id number] Sylvia Hanna 1945 F Date Provider Department Center 03/18/2024 MITZY BRYANT Family History Family history unknown: Yes Normal [facility] Office Visiton 02-03-2024 Follow-up visit [id number] Sylvia Hanna 1945 F Date Provider Department Center 02/03/2024 ANISHA JACOBS Family History Family history unknown: Yes Level of Service:42074 [place] OFFICE/OUTPATIENT ESTABLISHED MOD MDM 30 MIN [facility] Office Visiton 11-12-2023 Follow-up visit [id number] Sylvia Hanna 1945 Provider Department Center 11/12/2023 ANISHA JACOBS Family History Family history unknown: Yes Level of Service:11216 [place] OFFICE/OUTPATIENT ESTABLISHED MOD MDM 30-39 MIN [facility] 36on 10-26-2023 36 Her tacrolimus level from 10/16/2023 was 1.4. still very low. I believe she is currently taking tacrolimus (Prograf) 0.5 mg bid. I want her to increase to 1 mg bid and obtain another trough level in 2-3 weeks. [facility] Telephoneon 10-26-2023 Telephone [id number] Sylvia Hanna 1945 Provider Department [place] 10/26/2023 ANISHA JACOBS Family History Family history unknown: Yes [facility] Orders Onlyon 09-30-2023 Orders Only [id number] Sylvia Hanna 1945 Provider Department Center 09/30/2023 SHELBI DENNY Family History Family history unknown: Yes [facility] 36on 08-15-2023 36 Her Tacrolimus troug h level (taken on 08/06/2023, reported 08/14/2023) was low at 1.4. She is currently taking tacrolimus 0.5 mg once a day. Please have her increase it to 0.5 mg twice a day and have a repeat Tacrolimus trough level in 2 weeks. Her target level is around 5-10 ng/ml. [facility] Telephoneon 08-15-2023 Telephone [id number] Sylvia Hanna 1945 Provider Department Center 08/15/2023 ANISHA JACOBS Family History Family history unknown: Yes [facility] Office Visiton 08-07-2023 Follow-up visit [id number] Sylvia Hanna 1945 F Date Provider Department Center 08/07/2023 [facility] Family History Family history unknown: Yes Level of Service:81141 [place] OFFICE/OUTPATIENT ESTABLISHED MOD MDM 30-39 MIN Reason for Visit and Comments: Follow-up [077276] - 6 mo f/u no stress test or tacrolimus result as of 08/06 - does she plan on having stress test? Normal [facility] BMPon 04-08-2023 Creatinine [Mass/Vol] 1.3 mg/dL Normal 0.5-1.3 [facility] Comment on above: Performed By: #### 1 [id number], [id number], [id number] ####[facility] [address] [place] [address] Urea nitrogen [Mass/Vol] 36 mg/dL High 5-21 [facility] Comment on above: Performed By: #### 1 [id number], [id number], [id number] ####[facility] [address] [place] [address] Urea nitrogen/Creatinine [Mass ratio] 28 No Units High 10-20 [facility] Comment on above: Performed By: #### 1 [id number], [id number], [id number] ####[facility] [address] [place] [address] Anion gap [Moles/Vol] 11 mmol/L Normal 6-16 [facility] Comment on above: Performed By: #### 1 [id number], [id number], [id number] ####[facility] [address] [place] [address] Calcium [Mass/Vol] 8.6 mg/dL Low 8.9-11.1 [facility] Comment on above: Performed By: #### 1 [id number], 4074668, [id number] ####[facility] [address] [place] [address] Chloride [Moles/Vol] 99 mmol/L Low 101-111 [facility] Comment on above: Performed By: #### 1 [id number], 5427206, [id number] ####[facility] [address] [place] [address] CO2 [Moles/Vol] 25 mmol/L Normal 21-31 [facility] Comment on above: Performed By: #### 1 0615303, 7015463, [id number] ####[facility] [address] [place] [address] Glucose [Mass/Vol] 124 mg/dL Normal 55-199 [facility] Comment on above: Result Comment: If t his glucose result represents a fasting glucose, interpretation should refer to the following reference range: 55-99 mg/dL Performed By: #### 1 [id number], [id number], [id number] ####[facility] [address] [place] [address] Potassium [Moles/Vol] 4.1 mmol/L Normal 3.5-5.3 [facility] Comment on above: Performed By: #### 1 [id number], 8622581, [id number] ####[facility] [address] [place] [address] Sodium [Moles/Vol] 131 mmol/L Low 135-145 [facility] Comment on above: Performed By: #### 1 [id number], 0819083, [id number] ####[facility] [address] [place] [address] CHEMISTRYOrdered By: SYSTEM SYSTEM on 04-08-2023 Anion gap [Moles/Vol] 11 mmol/L Normal 6 - 16 mEq/L [facility]isol Calcium [Mass/Vol] 8.6 mg/dL Low 8.9 - 11. 1 mg/dL [facility] Chloride [Moles/Vol] 99 mmol/L Low 101 - 1 11 mmol/L [facility] CO2 [Moles/Vol] 25 mmol/L Normal 21 - 31 mmol/L [facility] Creatinine [Mass/Vol] 1.3 mg/dL Normal 0.5 - 1.3 mg/dL [facility] GFR/1.73 sq M.predicted among non-blacks MDRD (S/P/Bld) [Vol rate/Area] 42 mL/min/1.73 m2 Low >=59mL/min/ 1.73 m2 [facility] Chem S Glucose [Mass/Vol] 124 mg/dL Normal 55 - 199 mg/dL [facility] Remisol Potassium [Moles/Vol] 4.1 mmol/L Normal 3.5 - 5.3 mmol/L [facility] Remisol Sodium [Moles/Vol] 131 mmol/L Low 135 - 145 mmol/L [facility] Remisol Troponin I.cardiac [Mass/Vol] 11.10 pg/mL Normal 10.10 - 27.10 pg/mL [facility] Remisol Urea nitrogen [Mass/Vol] 36 mg/dL High 5 - 21 mg/dL [facility] Remisol Urea nitrogen/Creatinine [Mass ratio] 28 mg/mg High 10 - 20 [facility] Remisol Troponin I.cardiac [Mass/Vol] 9.70 pg/mL Low 10.10 - 27.10 pg/mL [facility] Remisol Consent for Treatmenton Consent for Treatment [id number]#[id number]:12 7 Normal [facility] Discharge Instructionson Discharge Instructions [id number]#[id number]:127 Normal [facility] ED Clinical Summaryon 2022 ED Clinical Summary (Inserted Image. Tram ble to display) [address] [place] [id number] ED Clinical Summary Person Information Name: SYLVIA HANNA Herb/[facility] Age: 77 Years : 1945 Sex: Female Language: Mozambican PCP: SCOT ROGERS CNP Marital Status: Single [...] 04/08/2023 08:56:01 04/08/2023 08:56:01 04/08/2023 08:56:01 ADDRESS: [address] [place] [address] [phone] PHYS DOC NOTES: MEDICAL INFORMATION: Prescriptions Given: [...] When: SCOT ROGERS [address] [place] [address] [phone] Business (1) In 3 days DIAGNOSIS: Chest pain; Hyponatremia Normal [facility] ED Note-Physicianon 04-08-20 ED Note-Physician [...] 6 Hr. (more content not included)... Normal [facility] Comment on above: Result [...] gland problems. ? Metabolic conditions, such as [place]'s disease or syndrome of inappropriate antidiuresis (SIAD). [...] Follow these instructions at home: ? Take clrm-wye-lltjhef and prescription medicines only as told by [...] provider. Document Revised: 05/29/2022 Document Reviewed: 05/29/2022 [employer] Patient Education ? 2022 [employer] Pulmonary Medicine Nonspecific Chest Pain, Adult [...] health care (more content not included)... Normal [facility] ED Patient Summaryon 023 ED Patient Summary (Inserted Image. Tram ble to display) [address] [address] Patient Discharge Instructions Person Information Name: SYLVIA HANNA Age: 77 Years Arrival Date: 04/07/2023 21:18:46 Discharge Diagnosis: Chest pain; Hyponatremia Primary Care Physician: SCOT ROGERS CNP Provider Information Primary Provider: Richard Ca DO Advanced Marine Design Engineer:Montrell The exam and treatment you received in the Emergency Department were for an urgent problem and are not intended as complete care. It is important that you follow up with a doctor, nurse practitioner, or physician?s unit assistant for ongoing care. If your symptoms [...] With: Address: When: SCOT ROGERS [address] [facility] [address] [phone] Business (1) In 3 days In the event that this physician does not participate in your insurance network, please consult with your insurance company to find a nearby participating provider. Patient Education Materials: Hyponatremia; Nonspecific Chest Pain, Adult A MESSAGE TO ALL PATIENTS REGARDING OPIOIDS PRESCRIPTION OPIOIDS: WHAT YOU NEED TO KNOW Prescription opioids can be used to help relieve hxitjhdc-wx-vkrngl pain and are often prescribed following a [...] with addiction, tell your health home care and home health aides teacher and ask for guidance or call [facility]S National Helpline at [phone]-RLRB. z Source: [facility] (more content not included)... Normal [facility] EMS Documentationon 04-08-20 EMS Documentation Please click on link to see report [id number] tinVGviUGKXdUGgDICdCsA0WBy 5LBQoo3NrQEf4LVhnAXU5BpVaQ QovSCBb NIQ1XIRcQTdhEh3MUAR6DeZ2Rk 3VhE9aCKEcxwHgMHWNB76vJIdy JvR1Dv2JYAI1AUg4Qa8+ICAg ICAgICAgICAgICAgICAgICAgIC AgICAgICAgICAgICAgICAgICAg ICAgICAgICAgICAgICAgICAg ICAgICAgICAgICAgICAgICAgIC FFWaOeSC3chv2NXLs5izDbOXv1 CBR0ERmxEETtJBOxWNQgOTRg NYEnTZ4GKaOaJTFxRMV0KPoiNM MsBNOddk5STVRqWUPpUZR9FSBc MDAwMCBuDQowMDAwMDAxODM3 MQDnQPWpSC8YPdCkFULbZJW1Di hqKYIyUJIkzb7FPQAhHTTgNmRm OCAwMDAwMCBuDQowMDAwMDAy ClqzEFBsKBDeZF0TOiQvIYSyCC AbVCJqZRUfHUVmct4YVHIzEOBu OkX7KtVpIDQpTWSdRYdeFOLr BTDsJEDfHEJoFXKlCF0AEdQiFC HzBLC3FJisQIEvZVQjpz0JJMBb FIYwXjk9DADoIVKcSUOsEQhs KTNmGUIyGmF0SBLmGPRgMP6KDr ByFQMzZBJ8RFKxLUBnVHYacf8A AEKbVHFjXQO7QZDcWUNqXFWn EGgkXDIrMNM7BsLxJAAeDOMvOL 5FRwEvBSSmXHZ5IhugLGSzPYLj ew8ZVKJvHMQpAVv9JBKsVIJl FNFiWIvkXDDoMGY1XkM0FPJmWK EuUH0DKtSjUISyLXZ0ObrnZKXt WUGcvm0VDSStXXJuWAgtRIAj RLVxKLEtXLeeTZUfMWJ6JAA2VZ ZdVWGxLL7LAgAxFNNkQAF9Nhzg FFPaQYQxmn6RVRYpWBYgGaz5 VjEbOWZzZTZqCGkvHYEbBJY8SK B6RUYgLVAhXT9DEgSfSXWdDFpj OSUkXAPkLVUrtd9PJUJsGCOe OTkyMiAwMDAwMCBuDQowMDAwMD P0IBN0GZJxKOXuTK0HZjDpURmc IVJRTmn0It9AJHCmZZNCHTME E9EtWHDZCjaKSVN9ILN9HXc6EV VjWQxmKhG5Tig0NiNYIBW0Bos7 VQwOSRA3BRi7PDXRJ3S1POlF NTZDRTA+SXstWXIfuiP2QcN0Nt cmIt0mcUK2EZStWutrO4v2PSEg UzjnK990zmEyDXfDHJeKBmlE SfNtIkI0vXUHPXMGZ7J0J87dN1 6xXC1LEApoZ6n0JzeFNPQ8VJuY jTiCPbJaB96wJGugAWBbM9Iv EmsimOkgUZQ2V8VkdMM7U8bdl6 7aVCUNDLuEu5qpBLP8R63NBemW KhwNjlJYN9w3qTMExRN3Zzeg L9zyIrTpJHVXYAYzVcOuLxoIC8 WAN0iJWf9dQh6+ICAgICAgICAg ICAgICAgICAgICAgICAgICAg ICAgICAgICAgICAgICAgICAgIC AgICAgICAgICAgICAgICAgICAg ICAgICAgICAgICAgICAgICAg ICAgICAgICAgICAgICAgICAgIC AgICAgICAgICAgICAgICAgICAg ICAgICAgICAgICAgICAgICAg ICAgICAgICAgICAgICAgICAgIC AgICAgICAgICAgICAgICAgICAg ICAgICAgICAgICAgICAgICAg ICAgICAgICAgICAgICAgICAgIC AgICAgICAgICAgICAgICAgICAg ICAgICAgICAgICAgICAgICAg ICAgICAgICAgICAgICAgICAgIC AgICAgICAgICAgICAgICAgICAg ICAgICAgICAgICAgICAgICAg ICAgICAgICAgICAgICAgICAgIC AgICAgICAgICAgICAgICAgICAg ICAgICAgICAgICAgICAgICAg ICAgICAgICAgICAgICAgICAgIC AgICAgICAgICAgICAgICAgICAg ICAgICAgICAgICAgICAgICAg KWMWMyU4OJT1tLSpVg3DAP2PPZ ZCD6CKDx3RABFvCN0jbd0FAJfE V04kwZFyOXTnGKQwPKVDWh1F gMDaFTN5rK1cSJx9YAUdDvbpRc q0TK6OT101vIaicaIuDBQmKUBR Yt8VPJzdUD7eYNZvLRPjZa8o DVswUSZsICPjSiPsODYID8X3bE OxF5QciYHva6pFUu3KWtKdGM2g hx1GEGp8USTyb5YzLEw7BBfn LyaeuNXpJU3AiYB1XLAaA16cYT ieYMZgA4BxXBWyYHpjLvF3Vxu+ Td3Bn3LrPZCmXTg6rIXzXJAj YGDLYFBgYLjCAyLhQAEKUxiwAr H7BhGaJZXz5JMyTGAn43BJRcNf LbQbVPghByUmnREG6SpmHhFW QVpm2DaXTkMXYcWLpiK1VMgoAP RMOtcEKVu9ScJkHqdS5GlZidGk 7L5ZZOQSIgcNUcPrYFY7twDr kQ8WUG5ta0ZqEZsMVyjvTLVpMq vCUpj6Ri9Vc719NL11ozBuJmFu GCNUHAjlFBMfkMGGe0gbLwBv NPP2TZShGyrgEHvjBITiEM84TV YrMEIDNh0CRYNcbOLeXOCoBNxR Y7mVZpezE0GkZUlYJ9gnNlS3 IDggMCBSCj4+Cj4+Bk3ShBOhSF 9LZNlcOo7+GNsbieOgDlpVAl4M HAYdRE1nmc7DAIpPE1PDh6qt LyIeAOI4QXGhBkcnWUfaSzfsiH JdCQ5GxMH3RLKeW48fTYxgJGDh O0QpOTp2Pa6ZFNMxqCLzCPVg TKjAB6dRYcciB7MuFTgPB0ybYh I1YIC8KZWwTwp+Pgo+DvhtT9Xq dLleILBfJv5bmCanXPcrUKQf NR3xyiUfgCl+Xv8Ok6EvSQHmYM s3hQQJ4SCj9CUrCZViIXV4SCMp uxVFQJjs7YdDnAVeIqXyqHZr L3pgLPWi39eEVECaGpeIu9kkYa Ct3KfWWV+BB3DDfjJyZrDaex4I FVkjyjVotOBqMG2TMsHfRP6f ow6GGSz4PLUqj6EtNIy1HGnzSs 1zN11kbt9ztHxtN9YlNTz+Pg0K RY1bv0WzSGeBAvVbNRRnl2Vg ALk9KCbpVk0zS83eum8brVywF3 EgMQovTEMgMAovTEogMAovTFcg OEvjAXfkSLcvN7XneXU0TMgw I3MaGEx+Ar7SCR4rj2XzPAuIYb KxVRBbi4UeNQz8DHvsEo8zP02w ll3tuBwtX4AqQX6iPkQfJjjv TEMgMAovTEogMAovTFcgMQovTU qiDOmhE2CxpDP3RJddH2YjEF3l MzMzMwo+Zh0XAO3nh0IlMUwP XeNcOTHgl8AsJUg7TAqoXv0vV5 8bgn8glScoW5LuWU8gMZWxXMt+ Cy6PRL5ws9QzEKtFShNpRBZo b1XiIYf8OGjsWw4dD76kxe0djS pbD5JfMH3eUMJ9XLfmDVUcXEig TEogMAovTFcgMQovTUwgNAov K1EvwCP2GOzkM6PdWB4iWVA0CL o+Bb2MSX1av8DjWIbTCtN2HLXn k4KoNAx6ZDnlWAR3jeh4NJrb Gkw7QIIvMMOyCJ47WGCiDNy5Yb 9OK1KqdKSqms3NeIGiQLOTT6Td NJVnggpaTVyAV2EyiL8hR0Hd W4CsT7NcmjkhSVCPGlwgU99jze HmYUnrPGM6UVSvTAQ4GQ6JV3X1 vYGbMJPlkEJ1PSx2aoNgRWcx WrVzZ4Fzi62tNYnFY4WaXDzbSc q2RxHlFjg7ZzTxRxm8S76OV2Gc KRlhLbp1GeUcYrz6YpJuQpe6 F23YI1GejZBnriJnBHEjVCvvHl UpI8Xhm69YhQUuEMKDF15cPIq+ XuogX2fkZGtdD2K5tIPtWvp+ DlhsVUcuMBAhGDK3eKQtbas+Pg 0LTG6xg9GjMAcHCnJ6IRYsx1Ox MAe7QLxsYWO5xtg8HJdzGmb4 OIOoXEMtOG50AUBqQIt7Nx2VW1 ZieGXfto0BpJTdZLGEA4GuLITi weusWQaXM4RitI3dX7GbI3Fe O8HagbnkPIBTSmzvD04xbtWcHR o5SJB5OzL9OZR2Rm80Cx5KU1T0 tQQwRXKdvKM3GFg0swTjIPhc VaQzI3Uch34qCEkNS3DciK4wgd PbQA52NHjrEB3nAPsvFMruNFRm Vn7QdfWrDQVfNjNfEHSpKVDo Zr3NoI4miJuqtcC0lGDqFaehVp OwW6Zhe50vXTa4MFyjTbDqBbKi ZVI6EVXoTAT5BQExAFA7NClb ItEdOqCzJWT6QBYsAGF3ISSaAW E7SDumTX4tAMcyYNfsQKHjXh4T pO0erHhttzS7fAOhCrppEcCt Cj4+Rfw6By5DAWEnOF17DoaoWC 08IdozGE86RukvQp6KAHBkNE38 GrAySQ03BeLwSL18UkHsWf0I b95pwE0rCkVdJP7ZD7M8twA1fU 2iZWomMAIwKn1KPIPXKh7qHv1+ Cc4LyDBptQ6jRLhhOCRmTh9+ Kt0JgETtSN6HOYT0LCHgPr3+DQ plquYgCbjYRg2XYELyYBPzAouX Zxu3Mg3MRDXxKo9lbILpFEuS OT0FI0QaH22mWVyLH9Eih5Cxnl RermOFp295lyQfZSduUGUKYZmk AS6zz7KivhnlX0dwYB43nGY8 WLpGN4Q5ZgB4wXIjB0U8mYSqLf 6Gd7TnnECuKZDqUVpzOVLRUy9O tVTvQJ9Be284Ut7+DQplbmRv TxvPWv7YKLegMAXhTnkXFid4Jn 6XQVChNd0kdMRoOEaZHV2RH7Dk J39wSMxEH5FXPWW7s9KicAbm Bq4hFOmFE90uEWCctB1uENnRUT TajTb4mRsPA4CpH5steMU0RYhR ZG9i (more content not included)... Normal [facility] EMS Documentation Please click on link to see report Normal [facility] Comment on above: Result Comment: Miss ing Attachment - attachment exceeds size limitation [id number] Can be viewed in source system EMS Documentation [id number]#[id number]:127 Normal [facility] Monitor Recordon 04-08-2023 Monitor Record [id number]#[id number]:127 Normal [facility] Progress Note-Nurseon 2022 Progress Note-Nurse Pt. requesting food, Dr. Ca aware. Pt. given food per verbal order from Dr. Ca. Normal [facility] Troponin 0 Hr.on 04-08-2023 Troponin I.cardiac [Mass/Vol] 9.20 pg/mL Low 10.10-27.10 [facility] Comment on above: Result Comment: The 95% CI (Confidence Interval) PPV (Positive Predictive Value) for myocardial infarction in females is 38 pg/mL, in males 51 pg/mL. The results should be used in conjunction with clinical conditions of myocardial infarction. ([employer] High Sensitivity Troponin I Instructions For Use, Anne Fogarty, July 2018) Performed By: #### 2 [id number], [id number], [id number], [id number], [id number], [id number] ####[facility] [address] [place] [address] Troponin 3 Hr.on 04-08-2023 Troponin I.cardiac [Mass/Vol] 9.70 pg/mL Low 10.10-27.10 [facility] Comment on above: Result Comment: The 95% CI (Confidence Interval) PPV (Positive Predictive Value) for myocardial infarction in females is 38 pg/mL, in males 51 pg/mL. The results should be used in conjunction with clinical conditions of myocardial infarction. ([employer] High Sensitivity Troponin I Instructions For Use, Anne Fogarty, July 2018) Performed By: #### 1 [id number] ####[facility] [address] [place] [address] Troponin 6 Hr.on 04-08-2023 Troponin I.cardiac [Mass/Vol] 11.10 pg/mL Normal 10.10-27.10 [facility] Comment on above: Result Comment: The 95% CI (Confidence Interval) PPV (Positive Predictive Value) for myocardial infarction in females is 38 pg/mL, in males 51 pg/mL. The results should be used in conjunction with clinical conditions of myocardial infarction. ([employer] High Sensitivity Troponin I Instructions For Use, Anne FogartyJuly 2018) Performed By: #### 1 [id number], [id number], [id number] ####[facility] [address] [place] [address] XR Chest Single Viewon 04-08 XR Chest [...] Signature): 04/08/2023 7:58 am Signed by: Joel Shiedls MD, V. Transcribed by: HERMELINDA Technologist: REILLY Technical Comments Radiation Dose: Ka,r in mGy = na DAP = na Normal [facility] eGFRon 04-08-2023 GFR/1.73 sq M.predicted among non-blacks MDRD (S/P/Bld) [Vol rate/Area] 42 mL/min/1.73 m2 Low >=59 [facility] Comment on above: Order Comment: Order added by Discern Expert. Result Comment: Contingents Supervisor brennan kidney disease could be indicated at eGFR's of less than 60 mL/min/1.73m2. Kidney failure is indicated at less than 15 mL/min/1.73m2. Performed By: #### 1 [id number], [id number], [id number] ####[facility] [address] [place] [address] Auto Diffon 04-07-2023 Basophils/100 WBC (Bld) 0.4 % Normal 0.0-2.0 [facility] Comment on above: Order Comment: Order Added by Discern Expert. Performed By: #### 2 [id number], [id number], [id number], 3355287, [id number], [id number] ####[facility] [address] [place] [address] Basophils/Leukocytes Auto (Bld) [Pure # fraction] 0.0 E9/L Normal 0.0-0.2 [facility] Comment on above: Order Comment: Order Added by Discern Expert. Performed By: #### 2 [id number], [id number], [id number], [id number], [id number], [id number] ####[address] [address] Eosinophils/100 WBC (Bld) 3.0 % Normal 0.0-8.0 [facility] Comment on above: Order Comment: Order Added by Discern Expert. Performed By: #### 2 [id number], [id number], 3166565, [id number], [id number], [id number] ####[address] [address] Eosinophils/Leukocyt es Auto (Bld) [Pure # fraction] 0.2 E9/L Normal 0.0-0.5 [facility] Comment on above: Order Comment: Order Added by Discern Expert. Performed By: #### 2 [id number], [id number], 2278678, [id number], [id number], [id number] ####[address] [address] Lymphocytes/100 WBC (Bld) 15.4 % Normal 14.0-50.0 [facility] Comment on above: Order Comment: Order Added by Discern Expert. Performed By: #### 2 [id number], [id number], [id number], 4670310, [id number], [id number] ####[id number] [place] [address] Lymphocytes/Leukocyt es Auto (Bld) [Pure # fraction] 1.1 E9/L Normal 1.0-4.0 [facility] Comment on above: Order Comment: Order Added by Discern Expert. Performed By: #### 2 [id number], [id number], 6631276, 1055998, [id number], [id number] ####[address] [place] [address] Monocytes/100 WBC (Bld) 12.8 % Normal 4.0-14.0 [facility] Comment on above: Order Comment: Order Added by Discern Expert. Performed By: #### 2 [id number], [id number], 8964375, 9405062, [id number], [id number] ####[facility] [address] [place] [address] Monocytes/Leukocytes Auto (Bld) [Pure # fraction] 0.9 E9/L Normal 0.2-1.0 [facility] Comment on above: Order Comment: Order Added by Dirk Expert. Performed By: #### 2 058821, [id number], 0602933, 0182093, [id number], [id number] ####[address] [place] [address] Neutrophils/100 WBC (Bld) 68.4 % Normal 36.0-75.0 [facility] Comment on above: Order Comment: Order Added by Discern Expert. Performed By: #### 2 123075, 32956941, 0527600, 0800919, 64265647, 34686859 ####[facility] [address] [place] [address] Neutrophils/Leukocyt es Auto (Bld) [Pure # fraction] 5.0 E9/L Normal 2.0-7.5 [facility] Comment on above: Order Comment: Order Added by Dirk Expert. Performed By: #### 2 379193, 85869089, 6235596, 9461615, 16928889, 10002501 ####[facility] [address] [place] [address] BMPon 04-07-2023 Creatinine [Mass/Vol] 1.5 mg/dL High 0.5-1.3 [facility] Comment on above: Performed By: #### 2 786045, 26439575, 5815682, 7559971, 59263753, 07878708 ####[facility] [address] [place] [address] Urea nitrogen [Mass/Vol] 40 mg/dL High 5-21 [facility] Comment on above: Performed By: #### 2 906381, 56947845, 5772204, 7339761, 97877241, 03371096 ####[facility] [address] [place] [address] Urea nitrogen/Creatinine [Mass ratio] 27 No Units High 10-20 [facility] Comment on above: Performed By: #### 2 651763, 67549269, 8714695, 8606642, 45782682, 95267812 ####[facility] [address] [place] [address] Anion gap [Moles/Vol] 11 mmol/L Normal 6-16 [facility] Comment on above: Performed By: #### 2 245273, 25503355, 2576337, 3117377, 48847930, 51916783 ####[facility] [address] [place] [address] Calcium [Mass/Vol] 8.6 mg/dL Low 8.9-11.1 [facility] Comment on above: Performed By: #### 2 462925, 52556290, 9616542, 3506761, 44262979, 29990189 ####[facility] [address] [place] [address] Chloride [Moles/Vol] 96 mmol/L Low 101-111 [facility] Comment on above: Performed By: #### 2 121013, 89228103, 0712380, 3398082, 04968120, 36556472 ####[facility] [address] [place] [address] CO2 [Moles/Vol] 24 mmol/L Normal 21-31 [facility] Comment on above: Performed By: #### 2 555433, 67535914, 5095528, 3372885, 57388390, 02406279 ####[facility] [address] [place] [address] Glucose [Mass/Vol] 139 mg/dL Normal 55-199 [facility] Comment on above: Result Comment: If t his glucose result represents a fasting glucose, interpretation should refer to the following reference range: 55-99 mg/dL Performed By: #### 2 073936, 36272817, 1898528, 6999480, 36879606, 10854384 ####[facility] [address] [place] [address] Potassium [Moles/Vol] 4.4 mmol/L Normal 3.5-5.3 [facility] Comment on above: Performed By: #### 2 139916, 42432760, 3578567, 8635242, 16336629, 73929782 ####[facility] [address] [place] [address] Sodium [Moles/Vol] 127 mmol/L Low 135-145 [facility] Comment on above: Performed By: #### 2 961371, 55609076, 7046435, 2706045, 46688496, 55087652 ####[facility] [address] [place] [address] CBC w/ Auto Diffon 3 Erythrocyte distribution width (RBC) [Ratio] 13.0 % Normal 10.9-14.2 [facility] Comment on above: Performed By: #### 2 662043, 60852620, 3763424, 6970995, 48774498, 46007887 ####[facility] [address] [place] [address] Hematocrit (Bld) [Volume fraction] 38.4 % Normal 34.0-46.0 [facility] Comment on above: Performed By: #### 2 441845, 55472888, 3719305, 4588052, 65621470, 11071066 ####[facility] [address] [place] [address] Hemoglobin (Bld) [Mass/Vol] 12.6 g/dL Normal 12.0-16.0 [facility] Comment on above: Performed By: #### 2 547701, 95933814, 6998827, 0819722, 20560164, 66358360 ####[address] [address] MCH (RBC) [Entitic mass] 27.9 pg Normal 27.0-34.0 [facility] Comment on above: Performed By: #### 2 056162, 56739089, 2945928, 1152585, 04939190, 32439624 ####[id number] MCHC (RBC) [Mass/Vol] 32.7 g/dL Normal 31.4-36.0 [facility] Comment on above: Performed By: #### 2 433031, 25561390, 2721125, 4747611, 23256223, 23928840 ####[address] [address] MCV (RBC) [Entitic vol] 85.3 fL Normal 80.0-100.0 [facility] Comment on above: Performed By: #### 2 162584, 09001569, 6538084, 7193884, 93620206, 16583021 ####[address] [address] Platelet mean volume (Bld) [Entitic vol] 7.3 fL Normal 6.4-10.8 [facility] Comment on above: Performed By: #### 2 429275, 76529924, 6369844, 5228463, 34242903, 73415805 ####[address] [address] Platelets (Bld) [#/Vol] 167.0 E9/L Normal 150.0-500.0 [facility] Comment on above: Performed By: #### 2 437201, 32635661, 5314879, 3179512, 09536335, 56459409 ####[id number] RBC (Bld) [#/Vol] 4.5 E12/L Normal 4.3-5.9 [facility] Comment on above: Performed By: #### 2 187304, 76785477, 6122220, 8677964, 48286925, 51339239 ####[facility] [address] [place] [address] WBC corrected for nucl RBC Auto (Bld) [#/Vol] 7.3 E9/L Normal 4.0-11.0 [facility] Comment on above: Performed By: #### 2 430425, 94251493, 8809309, 2512839, 12272527, 47424567 ####[facility] [address] [place] [address] CHEMISTRYOrdered By: SYSTEM SYSTEM on 04-07-2023 Anion [...] 35 mL/min/1.73 m2 Low >=59mL/min/ 1.73 m2 [facility] Chem S Glucose [Mass/Vol] 139 mg/dL Normal [...] 2.5 second(s) [facility] Auto Coag HEMATOLOGYOrdered By: DataCert SYSTEM on 04-07-2023 Basophils/100 WBC (Bld) 0.4 [...] Coag (PPP) [Time] 27.1 second(s) Normal 25.1-36.5 [facility] Comment on above: Result [...] the same coagulation reagent and instrumentation as [facility]. Currently there are no coagulation studies available worldwide for children to 14 days, and no normal ranges. Heparin therapeutic range (represented by Anti-Factor Xa activity of 0.2 - 0.4 U/mL) corresponds to PTT of 56.6 - 109.0 sec. Performed By: #### 2 806656, 74662826, 0547331, 0223487, 51132673, 45690049 ####[facility] [address] [place] [address] INR Coag (PPP) [Relative time] 1.2 {INR} Invalid Interpretation Code [facility] Comment on above: Result Comment: INR results are specifically intended to assess patients stabilized on long-term Anticoagulation therapy suggested INR?s ?Less Intensive Anticoagulation? 2.0 ? 3.0 Conventional Range 3.0 ? 4.5 Performed By: #### 2 869131, 61142732, 7570666, 6747019, 09729836, 23511554 ####[facility] [address] [place] [address] PT Coag (PPP) [Time] 12.9 second(s) High 9.4-12.5 [facility] Comment on above: Result [...] the same coagulation reagent and instrumentation as [facility]. Currently there are no coagulation studies available worldwide for children to 14 days, and no normal ranges. Performed By: #### 2 838212, 89968871, 2215123, 0099997, 40498072, 17411537 ####[facility] [address] [place] [address] Pre-Arrival Noteon 3 Pre-Arrival Note Pre-Arrival Summary Name: , [facility] Current Date: 04/07/2023 21:19:11 EDT Gender: Female Date of : Age: 77 Pre-Arrival Type: EMS ETA: 04/07/2023 21:15:00 EDT Primary Care Physician: Presenting Problem: chest pain Pre-Arrival User: Natalia Fischer RN Referring Source: Location: Completion Date/Time: 04/07/2023 21:06:00 [facility] Emergency Department Pre-Hospital Report Form _ Vital Signs: Pre-Hospital Report: Treatment in Route: Response to Treatment: Misc. Issues: Normal [facility] eGFRon 04-07-2023 GFR/1.73 sq M.predicted among non-blacks MDRD (S/P/Bld) [Vol rate/Area] 35 mL/min/1.73 m2 Low >=59 [facility] Comment on above: Order Comment: Order added by Discern Expert. Result Comment: Contingents Supervisor brennan kidney disease could be indicated at eGFR's of less than 60 mL/min/1.73m2. Kidney failure is indicated at less than 15 mL/min/1.73m2. Performed By: #### 2 244569, 70155970, 8063229, 8349409, 83660420, 48174023 ####[address] [place] [address] INFLUENZA A [facility]on 03-[facility] Normal [facility] Comment on above: Result Comment: Nega tive for Flu A protein angiten. Infection due to Flu A cannot be ruled out. Flu A angiten in the sample may be below the detection limit of the test. Performed By: #### E RUR #### [facility] [address] [address] [address] Hardeep Rivera [facility] SEE BELOW Normal [facility] Comment on above: Result Comment: Nega tive for Flu B protein antigen. Infection due to Flu B cannot be ruled out. Flu B antigen in the sample may be below the detection limit of the test. Performed By: #### E RUR #### [facility] [address] [address] [address] Hardeep Rivera INFLUENZA A AG Negative Normal NEGATIVE SEE COMMENT [facility] Comment on above: Performed By: #### E RUR #### [facility] [address] [address] [address] Hardeep Rivera INFLUENZA B AG Negative Normal NEGATIVE SEE COMMENT [facility] Comment on above: Performed By: #### E RUR #### [facility] [address] [address] [address] Hardeep Rivera SYMPTOMATIC COVID-19 ANTIGEN on 03-05-2023 EUA Statement SEE BELOW Normal [facility] Comment on above: Result [...] #### C VDAGS ####[facility] [id number] Hardeep Rivera SARS-CoV-2 (COVID-19) RNA ULICES+probe Ql (Unsp spec) Positive Abnormal NEGATIVE [facility] Comment on above: Performed By: #### C VDAGS ####[facility] [id number] Hardeep Rivera FK506 (TACROLIMUS) WHOLE BLO ODon 02-28-2023 Tacrolimus (FK506), Blood 5.8 ng/mL Normal 2.0-20.0 [facility] Comment on above: Result Comment: Trou gh (immediately following transplant) 15.0 . Trough (steady state, 2 weeks or more after transplant): 3.0 - 8.0 . Performed by LC-MS/MS technology. Performed By: #### F K506T ####[facility] [address] [address] Hardeep Rivera CBC AUTO DIFFon 02-14-2023 BASO # 0.0 103/ul Normal 0.0-0.1 [facility] Comment on above: Performed By: #### HARI OLSONRO #### [facility] [address] [place] [address] Dr. Hardeep Rivera Basophils/100 WBC (Bld) 0.5 % Normal 0.2-2.0 [facility] Comment on above: Performed By: #### HARI OLSONRO #### [facility] [address] [place] [address] Dr. Hardeep Rivera EO # 0.2 103/ul Normal 0.0-0.7 [facility] Comment on above: Performed By: #### HARI OLSONRO #### [facility] [address] [place] [address] Dr. Hardeep Rivera Eosinophils/100 WBC (Bld) 3.5 % Normal 0.9-7.0 [facility] Comment on above: Performed By: #### HARI OLSONRO #### [facility] [address] [place] [address] Dr. Hardeep Rivera Erythrocyte distribution width (RBC) [Ratio] 12.3 % Normal 11.0-15.0 [facility] Comment on above: Performed By: #### HARI OLSONRO #### [facility] [address] [place] [address] Dr. Hardeep Rivera Hematocrit (Bld) [Volume fraction] 38.7 % Normal 36.0-48.0 [facility] Comment on above: Performed By: #### HARI OLSONRO #### [facility] [address] [place] [address] Dr. Hardeep Rivera Hemoglobin (Bld) [Mass/Vol] 12.6 g/dL Normal 12.0-16.0 [facility] Comment on above: Performed By: #### HARI OLSONRO #### [facility] [address] [place] [address] Dr. Hardeep Rivera IG # 0.03 10e3/ul Normal 0.00-0.03 [facility] Comment on above: Performed By: #### HARI OLSONRO #### [facility] [address] [place] [address] Dr. Hardeep Rivera IG % 0.5 % Normal 0.0-0.5 [facility] Comment on above: Performed By: #### HARI OLSONRO #### [facility] [address] [place] [address] Dr. Hardeep Rivera LYMPH # 0.8 103/ul Critically low 1.2-3.8 [facility] Comment on above: Performed By: #### HARI OLSONRO #### [facility] [address] [place] [address] Dr. Hardeep Rivera Lymphocytes/100 WBC (Bld) 13.2 % Critically low 20.5-60.0 [facility] Comment on above: Performed By: #### HARI OLSONRO #### [facility] [address] [place] [address] Dr. Hardeep Rivera MANUAL DIFF REQ NO Normal [facility] Comment on above: Performed By: #### HARI OLSONRO #### [facility] [address] [place] [address] Dr. Hardeep Rivera MCH (RBC) [Entitic mass] 28.3 pg Normal 26.7-34.0 [facility] Comment on above: Performed By: #### HARI OLSONRO #### [facility] [address] [place] [address] Dr. Hardeep Rivera MCHC (RBC) [Mass/Vol] 32.6 g/dL Normal 29.9-35.2 [facility] Comment on above: Performed By: #### Deedee PINON UMICRO #### [facility] [address] [place] [address] Dr. Hardeep Rivera MCV (RBC) [Entitic vol] 87.0 fL Normal 81.0-99.0 [facility] Comment on above: Performed By: #### Deedee PINON UMICRO #### [facility] [address] [place] [address] Dr. Hardeep Rivera MONO # 0.8 103/ul Normal 0.3-0.8 [facility] Comment on above: Performed By: #### Deedee PINON UMICRO #### [facility] [address] [place] [address] Dr. Hardeep Rivera Monocytes/100 WBC (Bld) 12.9 % Critically high 1.7-12.0 [facility] Comment on above: Performed By: #### Deedee PINON UMICRO #### [facility] [address] [place] [address] Dr. Hardeep Rivera NEUT # 4.4 103/ul Normal 1.4-6.5 [facility] Comment on above: Performed By: #### Deedee PINON UMICRO #### [facility] [address] [place] [address] Dr. Hardeep Rivera Neutrophils/100 WBC (Bld) 69.4 % Normal 43.0-75.0 [facility] Comment on above: Performed By: #### Deedee PINON UMICRO #### [facility] [address] [place] [address] Dr. Hardeep Rivera Platelet mean volume (Bld) [Entitic vol] 9.0 fL Critically low 9.5-13.5 [facility] Comment on above: Performed By: #### Deedee PINON UMICRO #### [facility] [address] [place] [address] Dr. Hardeep Rivera PLT 205 103/ul Normal 150-450 [facility] Comment on above: Performed By: #### Deedee PINON UMICRO #### [facility] [address] [place] [address] Dr. Hardeep Rivera RBC 4.45 106/ul Normal 4.20-5.40 [facility] Comment on above: Performed By: #### RANDALL OLSON #### [facility] [address] [address] [address] Hardeep Rivera WBC 6.3 103/ul Normal 4.0-11.0 [facility] Comment on above: Performed By: #### RANDALL OLSON #### [facility] [address] [address] [address] HEAD WO CONon [...] Bilirubin Ql (U) Negative Normal NEGATIVE [facility] Comment on above: Performed By: #### RANDALL OLSON #### [facility] [address] [place], [place] [address] Dr. Hardeep Rivera Clarity (U) CLEAR Normal CLEAR [facility] Comment on above: Performed By: #### Deedee PINON UMICRO #### [facility] [address] [address] [address] Hardeep Rivera Color (U) LT. YELLOW Normal YELLOW [facility] Comment on above: Performed By: #### Deedee PINON UMICRO #### [facility] [address] [place] [address] Dr. Hardeep Rivera ERUAHD A micrscopic examina tion will be performed if indicated. Normal [facility] Comment on above: Performed By: #### Deedee PINON UMICRO #### [facility] [address] [place] [address] Dr. Hardeep Rivera Glucose Ql (U) Negative Normal NEGATIVE [facility] Comment on above: Performed By: #### Deedee PINON UMICRO #### [facility] [address] [place] [address] Dr. Hardeep Rivera Hemoglobin Ql (U) TRACE-INTACT Abnormal NEGATIVE [facility] Comment on above: Performed By: #### Deedee PINON UMICRO #### [facility] [address] [place] [address] Dr. Hardeep Rivera Ketones Ql (U) Negative Normal NEGATIVE [facility] Comment on above: Performed By: #### Deedee PINON UMICRO #### [facility] [address] [place] [address] Dr. Hardeep Rivera LEUKOCYTES Negative Normal NEGATIVE [facility] Comment on above: Performed By: #### Deedee PINON UMICRO #### [facility] [address] [place] [address] Dr. Hardeep Rivera Nitrite Ql (U) Negative Normal NEGATIVE [facility] Comment on above: Performed By: #### Deedee PINON UMICRO #### [facility] [address] [place] [address] Dr. Hardeep Rivera pH (U) 7.0 [pH] Normal 5-9 [facility] Comment on above: Performed By: #### Deedee PINON UMICRO #### [facility] [address] [place] [address] Dr. Hardeep Rivera Protein (U) [Mass/Vol] 30 mg/dL Abnormal NEGATIVE/ TRACE [facility] Comment on above: Performed By: #### RANDALL OLSON #### [facility] [address] [address] [address] Hardeep Rivera SPEC GRAVITY 1.010 Normal 1.005-<=1.0 25 [facility] Comment on above: Performed By: #### RANDALL OLSON #### [facility] [address] [place] [address] Dr. Hardeep Rivera UR MICRO IND INDICATED Normal [facility] Comment on above: Performed By: #### RANDALL OLSON #### [facility] [address] [place] [address] Dr. Hardeep Rivera Urobilinogen Qn (U) 0.2 {Kevon'U}/dL Normal 0.2 - 1. 0 [facility] Comment on above: Performed By: #### RANDALL OLSON #### [facility] [address] [place] [address] Dr. Hardeep Rivera PROF 14(COMP METB)on 023 Albumin [Mass/Vol] 3.5 g/dL Normal 3.4-5.0 [facility] Comment on above: Performed By: #### H STRONATHANIEL, CMP, TSH ####[facility] [address] [address]. Hardeep Rivera Albumin/Globulin [Mass ratio] 1.2 {ratio} Normal [facility] Comment on above: Performed By: #### H STROPN, CMP, TSH ####[facility] [address] [address]. Hardeep Rivera ALP [Catalytic activity/Vol] 153 U/L Critically high 46-116 [facility] Comment on above: Performed By: #### H STROPN, CMP, TSH ####[facility] [address] [address]. Hardeep Rivera ALT [Catalytic activity/Vol] 21 U/L Normal 14-59 [facility] Comment on above: Performed By: #### H STROPN, CMP, TSH ####[facility] [address] [address]. Hardeep Rivera Anion gap [Moles/Vol] 9.3 mmol/L Normal [facility] Comment on above: Performed By: #### H STROPN, CMP, TSH ####[facility] [address] [address]. Hardeep Rivera AST [Catalytic activity/Vol] 23 U/L Normal 15-37 [facility] Comment on above: Performed By: #### H STROPN, CMP, TSH ####[facility] [address] [address]Dr. Hardeep Rivera Bilirubin [Mass/Vol] 0.6 mg/dL Normal 0.2-1.0 [facility] Comment on above: Performed By: #### H STROPN, CMP, TSH ####[facility] [address] [place], [place] [address]Dr. Hardeep Rivera Calcium [Mass/Vol] 8.4 mg/dL Critically low 8.5-10.1 [facility] Comment on above: Performed By: #### H STROPN, CMP, TSH ####[facility] [address] [place], [place] [address]Dr. Hardeep Rivera Chloride [Moles/Vol] 96 mmol/L Critically low 98-107 [facility] Comment on above: Performed By: #### H STROPN, CMP, TSH ####[facility] [address] [place], [place] [address]Dr. Hardeep Rivera CO2 [Moles/Vol] 29.3 mmol/L Normal 21.0-32.0 [facility] Comment on above: Performed By: #### H STROPN, CMP, TSH ####[facility] [address] [address]. Hardeep Rivera Creatinine [Mass/Vol] 1.16 mg/dL Critically high 0.55-1.02 [facility] Comment on above: Performed By: #### H STROPN, CMP, TSH ####[facility] [address] [address]Dr. Hardeep Rivera EGFR-AF COLOMBIAN 55 mL/min/1.73m2 Critically low >=60 [facility] Comment on above: Performed By: #### H STROPN, CMP, TSH ####[facility] [id number] Hardeep Rivera EGFR-NON AF COLOMBIAN 45 mL/min/1.73m2 Critically low >=60 [facility] Comment on above: Performed By: #### H STROPN, CMP, TSH ####[facility] [address] [address]Dr. Hardeep Rivera Globulin (S) [Mass/Vol] 2.9 g/dL Normal [facility] Comment on above: Performed By: #### H STROPN, CMP, TSH ####[facility] [address] [address]. Preethiarabella Rivera Glucose [Mass/Vol] 105 mg/dL Normal 74-106 [facility] Comment on above: Performed By: #### H STROPN, CMP, TSH ####[facility] [address] [address]Dr. Hardeep Rivera Potassium [Moles/Vol] 4.6 mmol/L Normal 3.5-5.1 [facility] Comment on above: Performed By: #### H STROPN, CMP, TSH ####[facility] [address] [address]Dr. Hardeep Rivera Protein [Mass/Vol] 6.4 g/dL Normal 6.4-8.2 [facility] Comment on above: Performed By: #### H STROPN, CMP, TSH ####[facility] [address] [address]Dr. Hardeep Rivera Sodium [Moles/Vol] 130 mmol/L Critically low 136-145 [facility] Comment on above: Performed By: #### H STROPN, CMP, TSH ####[facility] [address] [address]Dr. Hardeep Rivera Urea nitrogen [Mass/Vol] 27.0 mg/dL Critically high 7.0-18.0 [facility] Comment on above: Performed By: #### H STROPN, CMP, TSH ####[facility] [address] [address]Dr. Hardeep Rivera Urea nitrogen/Creatinine [Mass ratio] 23.3 mg/mg Normal [facility] Comment on above: Performed By: #### H STROPN, CMP, TSH ####[facility] [address] [address]Dr. Hardeep Rivera PROTIMEon 02-14-2023 INR Coag (PPP) [Relative time] 1.07 {INR} Normal [facility] Comment on above: Performed By: #### P T, PTT ####[facility] [address] [address]Dr. Hardeep Rivera INR GUIDELINES SEE BELOW Normal [facility] Comment on above: Result Comment: EDMUND RED INR: 2.0 - 3.0 CONDITIONS NOT LISTED BELOW 2.5 - 3.5 FOR PROSTHETIC HEART VALVE REPLACEMENT 2.5 - 3.5 RECURRENT THROMBOSIS Performed By: #### P T, PTT ####[facility] [address] [place], [place] [address]Dr. Hardeep Rivera PT Coag (PPP) [Time] 11.3 s Normal 9.0-11.6 [facility] Comment on above: Performed By: #### P T, PTT ####[facility] [address] [place], [place] [address]Dr. Hardeep Miguel PTTon 02-14-2023 aPTT Coag (Bld) [Time] 29.1 s Normal 22.3-36.2 [facility] Comment on above: Performed By: #### P T, PTT ####[facility] X[address] [place], [place] [address]Dr. Hardeep Rivera TROPONIN, HIGH SENSITIVITYon 02-14-2023 HSTROP 10.4 pg/mL Normal 4.0-51.3 [facility] Comment on above: Result Comment: CUT- OFF POINTS HAVE BEEN ESTABLISHED BASED ON THE FOURTH UNIVERSAL DEFINITIONS OF MYOCARDIAL INFARCTION. THE UPPER REFERENCE LIMIT (URL) OF TROPONIN, DEFINED THE 99TH PERCENTILE OF cTnI DISTRIBUTION IN A REFERENCE POPULATION, HAS BEEN CONFIRMED THE DECISION THRESHOLD FOR TX DIAGNOSIS. Performed By: #### H GLADIS SCOTT, TSH ####[facility] [address] [place] [address]Dr. Hardeep Rivera TSHon 02-14-2023 TSH 1.237 uIU/mL Normal 0.358-3.740 [facility] Comment on above: Performed By: #### H GLADIS SCOTT, TSH ####[facility] [address] [place] [id number]. Hardeep Rivera URINE MICROSCOPIC ONLYon BACTERIA NONE SEEN Normal NONE SEEN [facility] Comment on above: Performed By: #### Deedee PINON UMICRO #### [facility] [address] [place] [address] Dr. Hardeep Rivera Bacteria identified Cx Nom (U) NOT INDICATED Normal [facility] Comment on above: Performed By: #### Deedee PINON UMICRO #### [facility] [address] [place] [address] Dr. Hardeep Rivera CAST NONE SEEN Normal NONE SEEN [facility] Comment on above: Performed By: #### Deedee PINON UMICRO #### [facility] [address] [place] [address] Dr. Hardeep Rivera Crystals LM Nom (Urine sed) NONE SEEN Normal NONE SEEN [facility] Comment on above: Performed By: #### Deedee PINON UMICRO #### [facility] [address] [place] [address] Dr. Hardeep Rivera Epithelial cells LM Ql (Urine sed) NONE SEEN Normal NONE SEEN /RARE [facility] Comment on above: Performed By: #### Deedee PINON UMICRO #### [facility] [address] [place] [address] Dr. Hardeep Rivera MUCOUS NONE SEEN Normal NONE SEEN [facility] Comment on above: Performed By: #### Deedee PINON UMICRO #### [facility] [address] [place] [address] Dr. Hardeep Rivera RBC 0-2 Normal 0-2 [facility] Comment on above: Performed By: #### RANDALL OLSON #### [facility] [address] [address] [address] aHrdeep Rivera WBC NONE SEEN Normal NONE SEEN [facility] Comment on above: Performed By: #### E RANDALL PINON #### [facility] [address] [address] [address] Hardeep Rivera XR CHEST 1 Von [...] (FK506), Blood 1.4 ng/mL Critically low 2.0-20.0 [facility] Comment on above: Result Comment: Trou gh (immediately following transplant) 15.0 . Trough (steady state, 2 weeks or more after transplant): 3.0 - 8.0 . Performed by LC-MS/MS technology. Performed By: #### Deedee RUR #### [facility] [address] [address] [address] Hardeep Rivera PROF 14(COMP METB)on 023 Albumin [Mass/Vol] 3.5 g/dL Normal 3.4-5.0 [facility] Comment on above: Performed By: #### C MP ####[facility] [address] [place] [address]DrLaura Rivera Albumin/Globulin [Mass ratio] 1.2 {ratio} Normal [facility] Comment on above: Performed By: #### C MP ####[facility] [address] [place] [id number] Rivera ALP [Catalytic activity/Vol] 149 U/L Critically high 46-116 [facility] Comment on above: Performed By: #### C MP ####[facility] [address] [place], [place] [address]Pa. Hardeep Rivera ALT [Catalytic activity/Vol] 19 U/L Normal 14-59 [facility] Comment on above: Performed By: #### C MP ####[facility] [address] [place], [place] [address]Kz. Hardeep Rivera Anion gap [Moles/Vol] 11.7 mmol/L Normal [facility] Comment on above: Performed By: #### C MP ####[facility] [address] [place] [id number]. Hardeep Rivera AST [Catalytic activity/Vol] 27 U/L Normal 15-37 [facility] Comment on above: Performed By: #### C MP ####[facility] [address] [place] [id number]. Hardeep Rivera Bilirubin [Mass/Vol] 0.6 mg/dL Normal 0.2-1.0 [facility] Comment on above: Performed By: #### C MP ####[facility] [address] [place] [id number]. Hardeep Rivera Calcium [Mass/Vol] 8.5 mg/dL Normal 8.5-10.1 [facility] Comment on above: Performed By: #### C MP ####[facility] [address] [place] [id number]. Hardeep Rivera Chloride [Moles/Vol] 96 mmol/L Critically low 98-107 [facility] Comment on above: Performed By: #### C MP ####[facility] [address] [place] [id number]. Hardeep Rivera CO2 [Moles/Vol] 28.1 mmol/L Normal 21.0-32.0 [facility] Comment on above: Performed By: #### C MP ####[facility] [address] [place] [id number]. Hardeep Rivera Creatinine [Mass/Vol] 1.24 mg/dL Critically high 0.55-1.02 [facility] Comment on above: Performed By: #### C MP ####[facility] [address] [place], [place] [address]Pe. Hardeep Rivera EGFR-AF COLOMBIAN 51 mL/min/1.73m2 Critically low >=60 [facility] Comment on above: Performed By: #### C MP ####[facility] [address] [place], [place] [address]Qe. Hardeep Rivera EGFR-NON AF COLOMBIAN 42 mL/min/1.73m2 Critically low >=60 [facility] Comment on above: Performed By: #### C MP ####[facility] [address] [place] [id number]. Hardeep Rivera Globulin (S) [Mass/Vol] 3.0 g/dL Normal [facility] Comment on above: Performed By: #### C MP ####[facility] [address] [place] [id number]. Hardeep Rivera Glucose [Mass/Vol] 141 mg/dL Critically high 74-[address] [facility] Comment on above: Performed By: #### C MP ####[facility] [address] [place] [id number]. Hardeep Rivera Potassium [Moles/Vol] 4.8 mmol/L Normal 3.5-5.1 [facility] Comment on above: Performed By: #### C MP ####[facility] [address] [place] [id number]. Hardeep Rivera Protein [Mass/Vol] 6.5 g/dL Normal 6.4-8.2 [facility] Comment on above: Performed By: #### C MP ####[facility] [address] [place] [id number]. Hardeep Rivera Sodium [Moles/Vol] 131 mmol/L Critically low 136-145 [facility] Comment on above: Performed By: #### C MP ####[facility] [address] [place] [id number]. Hardeep Rivera Urea nitrogen [Mass/Vol] 29.0 mg/dL Critically high 7.0-18.0 [facility] Comment on above: Performed By: #### C MP ####[facility] [address] [place] [id number]. Hardeep Rivera Urea nitrogen/Creatinine [Mass ratio] 23.4 mg/mg Normal [facility] Comment on above: Performed By: #### C MP ####[facility] [address] [place] [id number] Rivera BNPon 01-09-2023 Natriuretic peptide B (Bld) [Mass/Vol] 336.0 pg/mL Normal <=1,800.0 [facility] Comment on above: Performed By: #### C MP, TSH, BNP, T7 ####[facility] [address] [place] [address]Dr. Hardeep Rivera CBC AUTO DIFFon 01-09-2023 BASO # 0.0 103/ul Normal 0.0-0.1 [facility] Comment on above: Performed By: #### C BC #### [facility] [address] [place] [address] Dr. Hardeep Rivera Basophils/100 WBC (Bld) 0.4 % Normal 0.2-2.0 [facility] Comment on above: Performed By: #### C BC #### [facility] [address] [place] [address] Dr. Hardeep Rivera EO # 0.3 103/ul Normal 0.0-0.7 [facility] Comment on above: Performed By: #### C BC #### [facility] [address] [place] [address] Dr. Hardeep Rivera Eosinophils/100 WBC (Bld) 4.4 % Normal 0.9-7.0 [facility] Comment on above: Performed By: #### C BC #### [facility] [address] [place] [address] Dr. Hardeep Rivera Erythrocyte distribution width (RBC) [Ratio] 12.3 % Normal 11.0-15.0 [facility] Comment on above: Performed By: #### C BC #### [facility] [address] [place] [address] Dr. Hardeep Rivera Hematocrit (Bld) [Volume fraction] 43.3 % Normal 36.0-48.0 [facility] Comment on above: Performed By: #### C BC #### [facility] [address] [place] [address] Dr. Hardeep Rivera Hemoglobin (Bld) [Mass/Vol] 13.5 g/dL Normal 12.0-16.0 [facility] Comment on above: Performed By: #### C BC #### [facility] [address] [place] [address] Dr. Hardeep Rivera IG # 0.02 10e3/ul Normal 0.00-0.03 [facility] Comment on above: Performed By: #### C BC #### [facility] [address] [place] [address] Dr. Hardeep Rivera IG % 0.3 % Normal 0.0-0.5 [facility] Comment on above: Performed By: #### C BC #### [facility] [address] [place] [address] Dr. Hardeep Rivera LYMPH # 1.1 103/ul Critically low 1.2-3.8 [facility] Comment on above: Performed By: #### C BC #### [facility] [address] [place] [address] Dr. Hardeep Rivera Lymphocytes/100 WBC (Bld) 16.0 % Critically low 20.5-60.0 [facility] Comment on above: Performed By: #### C BC #### [facility] [address] [place] [address] Dr. Hardeep Rivera MANUAL DIFF REQ NO Normal [facility] Comment on above: Performed By: #### C BC #### [facility] [address] [place] [address] Dr. Hardeep Rivera MCH (RBC) [Entitic mass] 28.4 pg Normal 26.7-34.0 [facility] Comment on above: Performed By: #### C BC #### [facility] [address] [place] [address] Dr. Hardeep Rivera MCHC (RBC) [Mass/Vol] 31.2 g/dL Normal 29.9-35.2 [facility] Comment on above: Performed By: #### C BC #### [facility] [address] [address] [address] Hardeep Rivera MCV (RBC) [Entitic vol] 91.0 fL Normal 81.0-99.0 [facility] Comment on above: Performed By: #### C BC #### [facility] [address] [address] [address] Hardeep Rivera MONO # 1.0 103/ul Critically high 0.3-0.8 [facility] Comment on above: Performed By: #### C BC #### [facility] [address] [address] [address] Hardeep Rivera Monocytes/100 WBC (Bld) 14.7 % Critically high 1.7-12.0 [facility] Comment on above: Performed By: #### C BC #### [facility] [address] [address] [address] Hardeep Rivera NEUT # 4.4 103/ul Normal 1.4-6.5 [facility] Comment on above: Performed By: #### C BC #### [facility] [address] [address] [address] Hardeep Rivera Neutrophils/100 WBC (Bld) 64.2 % Normal 43.0-75.0 [facility] Comment on above: Performed By: #### C BC #### [facility] [address] [address] [address] Hardeep Rivera Platelet mean volume (Bld) [Entitic vol] 9.5 fL Normal 9.5-13.5 [facility] Comment on above: Performed By: #### C BC #### [facility] [address] [address] [address] Hardeep Rivera PLT 238 103/ul Normal 150-450 [facility] Comment on above: Performed By: #### C BC #### [facility] [address] [address] [address] Hardeep Rivera RBC 4.76 106/ul Normal 4.20-5.40 [facility] Comment on above: Performed By: #### C BC #### [facility] [address] [address] [address] Hardeep Rivera WBC 6.8 103/ul Normal 4.0-11.0 [facility] Comment on above: Performed By: #### C BC #### [facility] [address] [address] [address] Hardeep Rivera FREE THYROXINE INDEX T7on FTI 3.96 Normal 1.30-4.50 [facility] Comment on above: Performed By: #### C MP, TSH, BNP, T7 ####[facility] [address] [place] [address]DrLaura Rivera T3U 35.0 % Normal 30.0-39.0 [facility] Comment on above: Performed By: #### C MP, TSH, BNP, T7 ####[facility] [address] [place] [address]DrLaura Rivera T4 [Mass/Vol] 11.30 ug/dL Normal 4.80-13.90 [facility] Comment on above: Performed By: #### C MP, TSH, BNP, T7 ####[facility] [address] [place] [address]DrLaura Rivera PROF 14(COMP METB)on 023 Albumin [Mass/Vol] 3.9 g/dL Normal 3.4-5.0 [facility] Comment on above: Performed By: #### C MP, TSH, BNP, T7 ####[facility] [address] [place] [address]DrLaura Rivera Albumin/Globulin [Mass ratio] 1.2 {ratio} Normal [facility] Comment on above: Performed By: #### C MP, TSH, BNP, T7 ####[facility] [address] [place] [address]DrLaura Rivera ALP [Catalytic activity/Vol] 151 U/L Critically high 46-116 [facility] Comment on above: Performed By: #### C MP, TSH, BNP, T7 ####[facility] [address] [place] [address]Dr. Hardeep Rivera ALT [Catalytic activity/Vol] 30 U/L Normal 14-59 [facility] Comment on above: Performed By: #### C MP, TSH, BNP, T7 ####[facility] [address] [place] [address]Dr. Hardeep Rivera Anion gap [Moles/Vol] 15.6 mmol/L Normal [facility] Comment on above: Performed By: #### C MP, TSH, BNP, T7 ####[facility] [address] [place], [place] [address]Dr. Hardeep Rivera AST [Catalytic activity/Vol] 23 U/L Normal 15-37 [facility] Comment on above: Performed By: #### C MP, TSH, BNP, T7 ####[facility] [address] [place], [place] [address]Dr. Hardeep Rivera Bilirubin [Mass/Vol] 0.7 mg/dL Normal 0.2-1.0 [facility] Comment on above: Performed By: #### C MP, TSH, BNP, T7 ####[facility] [address] [place], [place] [address]Dr. Hardeep Rivera Calcium [Mass/Vol] 9.0 mg/dL Normal 8.5-10.1 [facility] Comment on above: Performed By: #### C MP, TSH, BNP, T7 ####[facility] [address] [place], [place] [address]Dr. Hardeep Rivera Chloride [Moles/Vol] 97 mmol/L Critically low 98-107 [facility] Comment on above: Performed By: #### C MP, TSH, BNP, T7 ####[facility] [address] [place] [address]Dr. Hardeep Rivera CO2 [Moles/Vol] 26.1 mmol/L Normal 21.0-32.0 [facility] Comment on above: Performed By: #### C MP, TSH, BNP, T7 ####[facility] [address] [place], [place] [address]Dr. Hardeep Rivera Creatinine [Mass/Vol] 1.78 mg/dL Critically high 0.55-1.02 [facility] Comment on above: Performed By: #### C MP, TSH, BNP, T7 ####[facility] [address] [address]Dr. Hardeep Rivera EGFR-AF COLOMBIAN 33 mL/min/1.73m2 Critically low >=60 [facility] Comment on above: Performed By: #### C MP, TSH, BNP, T7 ####[facility] [address] [place] [address]Dr. Preethilan Rivera EGFR-NON AF COLOMBIAN 28 mL/min/1.73m2 Critically low >=60 [facility] Comment on above: Performed By: #### C MP, TSH, BNP, T7 ####[facility] [address] [place] [address]Dr. Hardeep Rivera Globulin (S) [Mass/Vol] 3.3 g/dL Normal [facility] Comment on above: Performed By: #### C MP, TSH, BNP, T7 ####[facility] [address] [place] [address]Dr. Hardeep Rivera Glucose [Mass/Vol] 127 mg/dL Critically high 74-[address] [facility] Comment on above: Performed By: #### C MP, TSH, BNP, T7 ####[facility] [address] [place] [address]Dr. Hardeep Rivera Potassium [Moles/Vol] 3.7 mmol/L Normal 3.5-5.1 [facility] Comment on above: Performed By: #### C MP, TSH, BNP, T7 ####[facility] [address] [place] [address]Dr. Preethilan Rivera Protein [Mass/Vol] 7.2 g/dL Normal 6.4-8.2 [facility] Comment on above: Performed By: #### C MP, TSH, BNP, T7 ####[facility] [address] [place] [address]Dr. Preethilan Rivera Sodium [Moles/Vol] 135 mmol/L Critically low 136-145 [facility] Comment on above: Performed By: #### C MP, TSH, BNP, T7 ####[facility] [address] [place], [place] [address]Ss. Hardeep Rivera Urea nitrogen [Mass/Vol] 54.0 mg/dL Critically high 7.0-18.0 [facility] Comment on above: Performed By: #### C MP, TSH, BNP, T7 ####[facility] [address] [place], [place] [address]Ga. Hardeep Rivera Urea nitrogen/Creatinine [Mass ratio] 30.3 mg/mg Normal [facility] Comment on above: Performed By: #### C MP, TSH, BNP, T7 ####[facility] [address] [place] [id number]. Hardeep Rivera TSHon 01-09-2023 TSH 1.097 uIU/mL Normal 0.358-3.740 [facility] Comment on above: Performed By: #### C MP, TSH, BNP, T7 ####[facility] [address] [place] [id number]. Hardeep Rivera ECHOCARDIO M/2D COMPLETEon 0 12-13-2022 ECHOCARDIO M/2D COMPLETE Patient: SYLVIA HANNA Exam Date: 12/13/2022 : 1945 Gender:F Ordering : [facility] Admission #: [id number] Family : Order #: [id number] CLICK HERE TO VIEW EXAM ECHOCARDIOGRAM REPORT [...] Area (VTI): 2.23 cm2, 2.23 cm2 Deceleration [place]: 1.44 m/s2 Pressure Half-Time: 850.98 ms Peak [...] Nolan M.D. on 12/14/2022 at 13:49 Normal [facility] US ALAN DOP LEG BILon 023 [...] PINON #### [facility] [address] [place] [address] Dr. Hardeep Rivera CBC AUTO DIFFon 12-11-2022 BASO # 0.0 103/ul Normal 0.0-0.1 [facility] Comment on above: Performed By: #### E KTAHRIN UMICRO #### [facility] [address] [place] [address] Dr. Hardeep Rivera Basophils/100 WBC (Bld) 0.4 % Normal 0.2-2.0 [facility] Comment on above: Performed By: #### HARI OLSONRO #### [facility] [address] [place] [address] Dr. Hardeep Rivera EO # 0.2 103/ul Normal 0.0-0.7 [facility] Comment on above: Performed By: #### HARI OLSONRO #### [facility] [address] [place] [address] Dr. Hardeep Rivera Eosinophils/100 WBC (Bld) 2.7 % Normal 0.9-7.0 [facility] Comment on above: Performed By: #### HARI OLSONRO #### [facility] [address] [place] [address] Dr. Hardeep Rivera Erythrocyte distribution width (RBC) [Ratio] 11.9 % Normal 11.0-15.0 [facility] Comment on above: Performed By: #### HARI OLSONRO #### [facility] [address] [place] [address] Dr. Hardeep Rivera Hematocrit (Bld) [Volume fraction] 40.2 % Normal 36.0-48.0 [facility] Comment on above: Performed By: #### HARI OLSONRO #### [facility] [address] [place] [address] Dr. Hardeep Rivera Hemoglobin (Bld) [Mass/Vol] 13.5 g/dL Normal 12.0-16.0 [facility] Comment on above: Performed By: #### HARI OLSONRO #### [facility] [address] [place] [address] Dr. Hardeep Rivera IG # 0.03 10e3/ul Normal 0.00-0.03 [facility] Comment on above: Performed By: #### HARI OLSONRO #### [facility] [address] [place] [address] Dr. Hardeep Rivera IG % 0.4 % Normal 0.0-0.5 [facility] Comment on above: Performed By: #### HARI OLSONRO #### [facility] [address] [place] [address] Dr. Hardeep Rivera LYMPH # 0.9 103/ul Critically low 1.2-3.8 [facility] Comment on above: Performed By: #### HARI OLSONRO #### [facility] [address] [place] [address] Dr. Hardeep Rivera Lymphocytes/100 WBC (Bld) 11.3 % Critically low 20.5-60.0 [facility] Comment on above: Performed By: #### HARI OLSONRO #### [facility] [address] [place] [address] Dr. Hardeep Rivera MANUAL DIFF REQ NO Normal [facility] Comment on above: Performed By: #### HARI OLSONRO #### [facility] [address] [place] [address] Dr. Hardeep Rivera MCH (RBC) [Entitic mass] 28.4 pg Normal 26.7-34.0 [facility] Comment on above: Performed By: #### HARI OLSONRO #### [facility] [address] [place] [address] Dr. Hardeep Rivera MCHC (RBC) [Mass/Vol] 33.6 g/dL Normal 29.9-35.2 [facility] Comment on above: Performed By: #### HARI OLSONRO #### [facility] [address] [place] [address] Dr. Hardeep Rivera MCV (RBC) [Entitic vol] 84.5 fL Normal 81.0-99.0 [facility] Comment on above: Performed By: #### HARI OLSONRO #### [facility] [address] [place] [address] Dr. Hardeep Rivera MONO # 1.0 103/ul Critically high 0.3-0.8 [facility] Comment on above: Performed By: #### HARI OLSONRO #### [facility] [address] [place] [address] Dr. Hardeep Rivera Monocytes/100 WBC (Bld) 12.5 % Critically high 1.7-12.0 [facility] Comment on above: Performed By: #### AKSHAT OLSONICRO #### [facility] [address] [place] [address] Dr. Hardeep Rivera NEUT # 5.9 103/ul Normal 1.4-6.5 [facility] Comment on above: Performed By: #### AKSHAT OLSONICRO #### [facility] [address] [place] [address] Dr. Hardeep Rivera Neutrophils/100 WBC (Bld) 72.7 % Normal 43.0-75.0 [place] [facility] Comment on above: Performed By: #### AKSHAT OLSONICRO #### [facility] [address] [place] [address] Dr. Hardeep Rivera Platelet mean volume (Bld) [Entitic vol] 8.6 fL Critically low 9.5-13.5 [facility] Comment on above: Performed By: #### AKSHAT OLSONICRO #### [facility] [address] [place] [address] Dr. Hardeep Rivera PLT 226 103/ul Normal 150-450 [facility] Comment on above: Performed By: #### AKSHAT OLSONICRO #### [facility] [address] [place] [address] Dr. Hardeep Rivera RBC 4.76 106/ul Normal 4.20-5.40 [facility] Comment on above: Performed By: #### AKSHAT OLSONICRO #### [facility] [address] [place] [address] Dr. Hardeep Rivera WBC 8.2 103/ul Normal 4.0-11.0 [facility] Comment on above: Performed By: #### AKSHAT OLSONICRO #### [facility] [address] [place] [address] Dr. Hardeep Rivera FREE THYROXINE INDEX T7on FTI 3.40 Normal 1.30-4.50 [facility] Comment on above: Performed By: #### HARI OLSNORO #### [facility] [address] [place] [address] Dr. Hardeep Rivera T3U 34.0 % Normal 30.0-39.0 [facility] Comment on above: Performed By: #### HARI OLSONRO #### [facility] [address] [place] [address] Dr. Hardeep Rivera T4 [Mass/Vol] 10.00 ug/dL Normal 4.80-13.90 [facility] Comment on above: Performed By: #### HARI OLSONRO #### [facility] [address] [place] [address] Dr. Hardeep Rivera PROF 14(COMP METB)on 023 Albumin [Mass/Vol] 3.8 g/dL Normal 3.4-5.0 [facility] Comment on above: Performed By: #### HARI OLSONRO #### [facility] [address] [place] [address] Dr. Hardeep Rivera Albumin/Globulin [Mass ratio] 1.1 {ratio} Normal [facility] Comment on above: Performed By: #### HARI OLSONRO #### [facility] [address] [place] [address] Dr. Hardeep Rivera ALP [Catalytic activity/Vol] 192 U/L Critically high 46-116 [facility] Comment on above: Performed By: #### AKSHAT OLSONICRO #### [facility] [address] [place] [address] Dr. Hardeep Rivera ALT [Catalytic activity/Vol] 22 U/L Normal 14-59 [facility] Comment on above: Performed By: #### Deedee PINON UMICRO #### [facility] [address] [place] [address] Dr. Hardeep Rivera Anion gap [Moles/Vol] 11.4 mmol/L Normal [facility] Comment on above: Performed By: #### E RUR, UMICRO #### [facility] [address] [place] [address] Dr. Hardeep Rivera AST [Catalytic activity/Vol] 22 U/L Normal 15-37 [facility] Comment on above: Performed By: #### E COLLINSR, UMICRO #### [facility] [address] [place] [address] Dr. Hardeep Rivera Bilirubin [Mass/Vol] 0.5 mg/dL Normal 0.2-1.0 [facility] Comment on above: Performed By: #### E RUR, UMICRO #### [facility] [address] [place] [address] Dr. Hardeep Rivera Calcium [Mass/Vol] 9.1 mg/dL Normal 8.5-10.1 [facility] Comment on above: Performed By: #### E KATHRIN, UMICRO #### [facility] [address] [place] [address] Dr. Hardeep Rivera Chloride [Moles/Vol] 93 mmol/L Critically low 98-107 [facility] Comment on above: Performed By: #### Deedee PINON UMICRO #### [facility] [address] [place] [address] Dr. Hardeep Rivera CO2 [Moles/Vol] 30.8 mmol/L Normal 21.0-32.0 [facility] Comment on above: Performed By: #### Deedee PINON, UMICRO #### [facility] [address] [place] [address] Dr. Hardeep Rivera Creatinine [Mass/Vol] 1.49 mg/dL Critically high 0.55-1.02 [facility] Comment on above: Performed By: #### E KATHRIN, UMICRO #### [facility] [address] [place] [address] Dr. Hardeep Rivera EGFR-AF COLOMBIAN 41 mL/min/1.73m2 Critically low >=60 [facility] Comment on above: Performed By: #### E KATHRIN, UMICRO #### [facility] [address] [place] [address] Dr. Hardeep Rivera EGFR-NON AF COLOMBIAN 34 mL/min/1.73m2 Critically low >=60 [facility] Comment on above: Performed By: #### RANDALL OLSON #### [facility] [address] [place] [address] Dr. Hardeep Rivera Globulin (S) [Mass/Vol] 3.4 g/dL Normal [facility] Comment on above: Performed By: #### HARI OLSONRO #### [facility] [address] [place] [address] Dr. Hardeep Rivera Glucose [Mass/Vol] 116 mg/dL Critically high 74-[address] [facility] Comment on above: Performed By: #### HARI OLSONRO #### [facility] [address] [place] [address] Dr. Hardeep Rivera Potassium [Moles/Vol] 4.2 mmol/L Normal 3.5-5.1 [facility] Comment on above: Performed By: #### RANDALL OLSON #### [facility] [address] [place] [address] Dr. Hardeep Rivear Protein [Mass/Vol] 7.2 g/dL Normal 6.4-8.2 [facility] Comment on above: Performed By: #### HARI OLSONRO #### [facility] [address] [place] [address] Dr. Hardeep Rivera Sodium [Moles/Vol] 131 mmol/L Critically low 136-145 [facility] Comment on above: Performed By: #### HARI OLSONRO #### [facility] [address] [place] [address] Dr. Hardeep Rivera Urea nitrogen [Mass/Vol] 38.0 mg/dL Critically high 7.0-18.0 [facility] Comment on above: Performed By: #### HARI OLSONRO #### [facility] [address] [place] [address] Dr. Hardeep Rivera Urea nitrogen/Creatinine [Mass ratio] 25.5 mg/mg Normal [facility] Comment on above: Performed By: #### RANDALL OLSON #### [facility] [address] [place] [address] Dr. Hardeep Rivera TSHon 12-11-2022 TSH 6.407 uIU/mL Critically high 0.358-3.740 [facility] Comment on above: Performed By: #### E HARI PINONRO #### [facility] [address] [place] [address] Dr. Hardeep Rivera Covid-19 PCR ([facility])on 11-01 SARS-CoV-2 (COVID-19) RNA ULICES+probe Ql [...] for this test is supported by the Bankruptcy Assistant of Health and Human Service's (HHS's) declaration [...] consistent with SARS-CoV-2. Performed By: #### [facility] #### [facility] [address] [place] [address] Dr. Hardeep Rivera INFLUENZA A AND B AGon 11-14 INFLUANEGH SEE BELOW Normal [facility] Comment on above: Result Comment: Nega tive for Flu A protein angiten. Infection due to Flu A cannot be ruled out. Flu A angiten in the sample may be below the detection limit of the test. Performed By: #### E KATHRIN UMICRO #### [facility] [address] [place] [address] Dr. Hardeep Rivera INFLUBNEGH SEE BELOW Normal [facility] Comment on above: Result Comment: Nega tive for Flu B protein antigen. Infection due to Flu B cannot be ruled out. Flu B antigen in the sample may be below the detection limit of the test. Performed By: #### E RUR, UMICRO #### [facility] [address] [address] [address] Hardeep Rivera INFLUENZA A AG Negative Normal NEGATIVE SEE COMMENT [facility] Comment on above: Performed By: #### E RUR, UMICRO #### [facility] [address] [address] [address] Hardeep Rivera INFLUENZA B AG Negative Normal NEGATIVE SEE COMMENT [facility] Comment on above: Performed By: #### E RUR, UMICRO #### [facility] [address] [address] [address] Hardeep Rivera INTERNAL CONTROLS Within Normal Limits Normal Wi thin Normal Limits [facility] Comment on above: Performed By: #### E RUR, UMICRO #### [facility] [address] [address] [address] Hardeep Rivera Cov[facility]-19 PCR ([facility]on SARS-CoV-2 (COVID-19) RNA ULICES+probe Ql (Unsp [...] for this test is supported by the Bankruptcy Assistant of Health and Human Service's (HHS's) declaration [...] consistent with SARS-CoV-2. Performed By: #### [facility] #### [facility] [address] [place] [address] Dr. Hardeep Rivera INFLUENZA A AND B AGon 10-03 [facility] SEE BELOW Normal [facility] Comment on above: Result Comment: Nega tive for Flu A protein angiten. Infection due to Flu A cannot be ruled out. Flu A angiten in the sample may be below the detection limit of the test. Performed By: #### Deedee PINON, UMICRO #### [facility] [address] [place] [address] Dr. Hardeep Rivera [facility] SEE BELOW Normal [facility] Comment on above: Result Comment: Nega tive for Flu B protein antigen. Infection due to Flu B cannot be ruled out. Flu B antigen in the sample may be below the detection limit of the test. Performed By: #### HARI OLSONRO #### [facility] [address] [place] [address] Dr. Hardeep Rivera INFLUENZA A AG Negative Normal NEGATIVE SEE COMMENT [facility] Comment on above: Performed By: #### AKSHAT OLSONICRO #### [facility] [address] [place] [address] Dr. Hardeep Rivera INFLUENZA B AG Negative Normal NEGATIVE SEE COMMENT [facility] Comment on above: Performed By: #### Deedee PINON UMICRO #### [facility] [address] [place] [address] Dr. Hardeep Rivera INTERNAL CONTROLS Within Normal Limits Normal Wi thin Normal Limits [facility] Comment on above: Performed By: #### Deedee PINON, UMICRO #### [facility] [address] [place] [address] Dr. Hardeep Clark 08-16-2022 NIK Telephone (JULIAN CONNELLY MAI) -- SYLVIA HANNA ([id number]) 1945 F Date Time Provider Department 08/16/22 [facility] During your visit today, we recorded the [...] mg by mouth three times daily. - bizdnf-pjepaosl-cfxxkkj (CREON) 24,000-76,000 -120,000 unit cpDR Take 3 [...] Status:Closed by SOY MCCANN on 08/16/22 Normal [facility] AMYLASEon 08-04-2022 Amylase [Catalytic activity/Vol] 155 U/L Critically high 25-115 [facility] Comment on above: Performed By: #### C MP, LIPA, BRITTNEY ####[facility] [address] [id number] Rivera CBC AUTO DIFFon 08-04-2022 BASO # 0.0 103/ul Normal 0.0-0.1 [facility] Comment on above: Performed By: #### C BC ####[facility] [address] [id number] Rivera Basophils/100 WBC (Bld) 0.3 % Normal 0.2-2.0 [facility] Comment on above: Performed By: #### C BC ####[facility] [address] [place], [place] [address]Dr. Hardeep Rivera EO # 0.1 103/ul Normal 0.0-0.7 [facility] Comment on above: Performed By: #### C BC ####[facility] [address] [place], [place] [address]Dr. Hardeep Rivera Eosinophils/100 WBC (Bld) 1.2 % Normal 0.9-7.0 [facility] Comment on above: Performed By: #### C BC ####[facility] [address] [place], [place] [address]Dr. Hardeep Rivera Erythrocyte distribution width (RBC) [Ratio] 12.2 % Normal 11.0-15.0 [facility] Comment on above: Performed By: #### C BC ####[facility] [address] [place], [place] [address]DrLaura Rivera Hematocrit (Bld) [Volume fraction] 38.3 % Normal 36.0-48.0 [facility] Comment on above: Performed By: #### C BC ####[facility] [address] [place], [place] [address]Dr. Preethiarabella Rivera Hemoglobin (Bld) [Mass/Vol] 12.9 g/dL Normal 12.0-16.0 [facility] Comment on above: Performed By: #### C BC ####[facility] [address] [place], [place] [address]DrLaura Rivera IG # 0.02 10e3/ul Normal 0.00-0.03 [facility] Comment on above: Performed By: #### C BC ####[facility] [address] [place], [place] [address]Dr. Hardeep Rivera IG % 0.3 % Normal 0.0-0.5 [facility] Comment on above: Performed By: #### C BC ####[facility] [address] [place], [place] [address]DrLaura Rivera LYMPH # 1.1 103/ul Critically low 1.2-3.8 [facility] Comment on above: Performed By: #### C BC ####[facility] [address] [address]DrLaura Rivera Lymphocytes/100 WBC (Bld) 16.6 % Critically low 20.5-60.0 [facility] Comment on above: Performed By: #### C BC ####[facility] [address] [address]DrLaura Rivera MANUAL DIFF REQ NO Normal [facility] Comment on above: Performed By: #### C BC ####[facility] [address] [address]DrLaura Rivera MCH (RBC) [Entitic mass] 29.7 pg Normal 26.7-34.0 [facility] Comment on above: Performed By: #### C BC ####[facility] [address] [place], [place] [address]Dr. Hardeep Rivera MCHC (RBC) [Mass/Vol] 33.7 g/dL Normal 29.9-35.2 [facility] Comment on above: Performed By: #### C BC ####[facility] [address] [place], [place] [address]DrLaura Rivera MCV (RBC) [Entitic vol] 88.2 fL Normal 81.0-99.0 [facility] Comment on above: Performed By: #### C BC ####[facility] [address] [place], [place] [address]Dr. Hardeep Rivera MONO # 0.7 103/ul Normal 0.3-0.8 [facility] Comment on above: Performed By: #### C BC ####[facility] [address] [place], [place] [address]DrLaura Rivera Monocytes/100 WBC (Bld) 11.1 % Normal 1.7-12.0 [facility] Comment on above: Performed By: #### C BC ####[facility] [address] [place], [place] [address]DrLaura Rivera NEUT # 4.6 103/ul Normal 1.4-6.5 [facility] Comment on above: Performed By: #### C BC ####[facility] [address] [id number]. Hardeep Rivera Neutrophils/100 WBC (Bld) 70.5 % Normal 43.0-75.0 [facility] Comment on above: Performed By: #### C BC ####[facility] [address] [id number]. Hardeep Rivera Platelet mean volume (Bld) [Entitic vol] 9.4 fL Critically low 9.5-13.5 [facility] Comment on above: Performed By: #### C BC ####[facility] [address] [id number]. Hardeep Rivera PLT 203 103/ul Normal 150-450 [facility] Comment on above: Performed By: #### C BC ####[facility] [address] [id number]. Hardeep Rivera RBC 4.34 106/ul Normal 4.20-5.40 [facility] Comment on above: Performed By: #### C BC ####[facility] [address] [id number]. Hardeep Rivera WBC 6.5 103/ul Normal 4.0-11.0 [facility] Comment on above: Performed By: #### C BC ####[facility] [id number]. Hardeep Rivera CT ABD/PELVIS WO CONon 08-04 [...] [facility] Covid-19 PCR (CVDTB)on SARS-CoV-2 (COVID-19) RNA [...] for this test is supported by the Bankruptcy Assistant of Health and Human Service's declaration that [...] longer be used). Performed By: #### [facility] ####[facility] [address] [address]Dr. Hardeep Rivera ER URINE PROFILEon 2 Bilirubin Ql (U) Negative Normal NEGATIVE [facility] Comment on above: Performed By: #### E RUR #### [facility] [address] [place] [address] Dr. Hardeep Rivera Clarity (U) CLEAR Normal CLEAR [facility] Comment on above: Performed By: #### E RUR #### [facility] [address] [place] [address] Dr. Hardeep Rivera Color (U) LT. YELLOW Normal YELLOW [facility] Comment on above: Performed By: #### E RUR #### [facility] [address] [place] [address] Dr. Hardeep Rivera ERUAHD A micrscopic examina tion will be performed if indicated. Normal [facility] Comment on above: Performed By: #### E RUR #### [facility] [address] [place] [address] Dr. Hardeep Rivera Glucose Ql (U) Negative Normal NEGATIVE [facility] Comment on above: Performed By: #### E RUR #### [facility] [address] [address] [address] Hardeep Rivera Hemoglobin Ql (U) Negative Normal NEGATIVE [facility] Comment on above: Performed By: #### E RUR #### [facility] [address] [place] [address] Dr. Hardeep Rivera Ketones Ql (U) Negative Normal NEGATIVE [facility] Comment on above: Performed By: #### E RUR #### [facility] [address] [place] [address] Dr. Hardeep Rivera LEUKOCYTES Negative Normal NEGATIVE [facility] Comment on above: Performed By: #### E RUR #### [facility] [address] [place] [address] Dr. Hardeep Rivera Nitrite Ql (U) Negative Normal NEGATIVE [facility] Comment on above: Performed By: #### E RUR #### [facility] [address] [place] [address] Dr. Hardeep Rivera pH (U) 7.0 [pH] Normal 5-9 [facility] Comment on above: Performed By: #### E RUR #### [facility] [address] [place] [address] Dr. Hardeep Rivera SPEC GRAVITY <=1.005 Abnormal 1.005-<=1.0 25 [facility] Comment on above: Performed By: #### E RUR #### [facility] [address] [place] [address] Dr. Hardeep Rivera UA PROTEIN Negative Normal NEGATIVE/ TRACE [facility] Comment on above: Performed By: #### E RUR #### [facility] [address] [place] [address] Dr. Hardeep Rivera UR MICRO IND NOT INDICATED Normal [facility] Comment on above: Performed By: #### E RUR #### [facility] [address] [place] [address] Dr. Hardeep Rivera Urobilinogen Qn (U) 0.2 {Kevon'U}/dL Normal 0.2 - 1. 0 [facility] Comment on above: Performed By: #### E RUR #### [facility] [address] [address] [address] Hardeep Rivera LIPASEon 08-04-2022 Lipase [Catalytic activity/Vol] 1486.0 U/L Critically high 73.0-393.0 [facility] Comment on above: Performed By: #### C ARGENIS LIPA, BRITTNEY ####[facility] [address] [address]DrLaura Rivera PROF 14(COMP METB)on 022 Albumin [Mass/Vol] 3.6 g/dL Normal 3.4-5.0 [facility] Comment on above: Performed By: #### C ARGENIS LIPA, BRITTNEY ####[facility] [address] [address]DrLaura Rivera Albumin/Globulin [Mass ratio] 1.3 {ratio} Normal [facility] Comment on above: Performed By: #### C MP LIPA, BRITTNEY ####[facility] [address] [address]Dr. Hardeep Rivera ALP [Catalytic activity/Vol] 171 U/L Critically high 46-116 [facility] Comment on above: Performed By: #### C ARGENIS LIPA, BRITTNEY ####[facility] [address] [address]DrLaura Rivera ALT [Catalytic activity/Vol] 35 U/L Normal 14-59 [facility] Comment on above: Performed By: #### C MP, LIPA, BRITTNEY ####[facility] [address] [address]DrLaura Rivera Anion gap [Moles/Vol] 11.4 mmol/L Normal [facility] Comment on above: Performed By: #### C MP, LIPA, BRITTNEY ####[facility] [address] [address]DrLaura Rivera AST [Catalytic activity/Vol] 28 U/L Normal 15-37 [facility] Comment on above: Performed By: #### C MP, LIPA, BRITTNEY ####[facility] [address] [address]DrLaura Rivera Bilirubin [Mass/Vol] 0.7 mg/dL Normal 0.2-1.0 [facility] Comment on above: Performed By: #### C DERRELL MOREA, BRITTNEY ####[facility] [address] [address]Dr. Hardeep Rivera Calcium [Mass/Vol] 8.4 mg/dL Critically low 8.5-10.1 [facility] Comment on above: Performed By: #### C ARGENIS LIPA, BRITTNEY ####[facility] [address] [address]Dr. Hardeep Rivera Chloride [Moles/Vol] 100 mmol/L Normal 98-107 [facility] Comment on above: Performed By: #### C ARGENIS LIPA, BRITTNEY ####[facility] [address] [address]Dr. Hardeep Rivera CO2 [Moles/Vol] 25.6 mmol/L Normal 21.0-32.0 [facility] Comment on above: Performed By: #### C MP LIPA, BRITTNEY ####[facility] [address] [address]Dr. Hardeep Rivera Creatinine [Mass/Vol] 1.33 mg/dL Critically high 0.55-1.02 [facility] Comment on above: Performed By: #### C MP LIPA, BRITTNEY ####[facility] [address] [address]Dr. Hardeep Rivera EGFR-AF COLOMBIAN 47 mL/min/1.73m2 Critically low >=60 [facility] Comment on above: Performed By: #### C MP, LIPA, BRITTNEY ####[facility] [address] [address]Dr. Hardeep Rivera EGFR-NON AF COLOMBIAN 39 mL/min/1.73m2 Critically low >=60 [facility] Comment on above: Performed By: #### C MP, LIPA, BRITTNEY ####[facility] [address] [address]Dr. Hardeep Rivera Globulin (S) [Mass/Vol] 2.7 g/dL Normal [facility] Comment on above: Performed By: #### C ABAD MORE, BRITTNEY ####[facility] [address] [address]Dr. Hardeep Rivera Glucose [Mass/Vol] 108 mg/dL Critically high 74-[address] [facility] Comment on above: Performed By: #### C ABAD MORE, BRITTNEY ####[facility] [address] [address]Dr. Hardeep Rivera Potassium [Moles/Vol] 4.0 mmol/L Normal 3.5-5.1 [facility] Comment on above: Performed By: #### C ABAD MORE, BRITTNEY ####[facility] [address] [address]Dr. Hardeep Rivera Protein [Mass/Vol] 6.3 g/dL Critically low 6.4-8.2 [facility] Comment on above: Performed By: #### C ABAD MORE, BRITTNEY ####[facility] [address] [place], [place] [address]Dr. Hardeep Rivera Sodium [Moles/Vol] 133 mmol/L Critically low 136-145 [facility] Comment on above: Performed By: #### C ABAD MORE, BRITTNEY ####[facility] [address] [address]Dr. Hardeep Rivera Urea nitrogen [Mass/Vol] 23.0 mg/dL Critically high 7.0-18.0 [facility] Comment on above: Performed By: #### C ABAD MORE, BRITTNEY ####[facility] [address] [place], [place] [address]Dr. Hardeep Rivera Urea nitrogen/Creatinine [Mass ratio] 17.3 mg/mg Normal [facility] Comment on above: Performed By: #### C ABAD MORE, BRITTNEY ####[facility] [address] [place], [place] [address]Dr. Hardeep Rivera Pre-Certification Formon Pre-Certification Form [id number]#[id number]:12 7 Normal [facility] TEST SENT OUTon 08-02-20 22 SENT TO REF LAB 08/02/2022 Normal [facility] Comment on above: Performed By: #### E RUR #### [facility] [address] [place] [address] Dr. Hardeep Rivera CBC AUTO DIFFon 08-02-2022 BASO # 0.0 103/ul Normal 0.0-0.1 [facility] Comment on above: Performed By: #### E RUR, UMICRO #### [facility] [address] [place] [address] Dr. Hardeep Rivera Basophils/100 WBC (Bld) 0.3 % Normal 0.2-2.0 [facility] Comment on above: Performed By: #### E RUTrish, UMICRO #### [facility] [address] [place] [address] Dr. Hardeep Rivera EO # 0.1 103/ul Normal 0.0-0.7 [facility] Comment on above: Performed By: #### E KATHRIN, UMICRO #### [facility] [address] [place] [address] Dr. Hardeep Rivera Eosinophils/100 WBC (Bld) 1.4 % Normal 0.9-7.0 [facility] Comment on above: Performed By: #### Deedee PINON, UMICRO #### [facility] [address] [place] [address] Dr. Hardeep Rivera Erythrocyte distribution width (RBC) [Ratio] 12.2 % Normal 11.0-15.0 [facility] Comment on above: Performed By: #### E COLLINSR, UMICRO #### [facility] [address] [place] [address] Dr. Hardeep Rivera Hematocrit (Bld) [Volume fraction] 41.2 % Normal 36.0-48.0 [facility] Comment on above: Performed By: #### E RUR, UMICRO #### [facility] [address] [place] [address] Dr. Hardeep Rivera Hemoglobin (Bld) [Mass/Vol] 13.6 g/dL Normal 12.0-16.0 [facility] Comment on above: Performed By: #### RANDALL OLSON #### [facility] [address] [place] [address] Dr. Hardeep Rivera IG # 0.02 10e3/ul Normal 0.00-0.03 [facility] Comment on above: Performed By: #### HARI OLSONRO #### [facility] [address] [place] [address] Dr. Hardeep Rivera IG % 0.3 % Normal 0.0-0.5 [facility] Comment on above: Performed By: #### HARI OLSONRO #### [facility] [address] [place] [address] Dr. Hardeep Rivera LYMPH # 0.6 103/ul Critically low 1.2-3.8 [facility] Comment on above: Performed By: #### RANDALL OLSON #### [facility] [address] [place] [address] Dr. Hardeep Rivera Lymphocytes/100 WBC (Bld) 8.9 % Critically low 20.5-60.0 [facility] Comment on above: Performed By: #### RANDALL OLSON #### [facility] [address] [place] [address] Dr. Hardeep Rivera MANUAL DIFF REQ NO Normal [facility] Comment on above: Performed By: #### HARI OLSONRO #### [facility] [address] [place] [address] Dr. Hardeep Rivera MCH (RBC) [Entitic mass] 29.6 pg Normal 26.7-34.0 [facility] Comment on above: Performed By: #### HARI OLSONRO #### [facility] [address] [place] [address] Dr. Hardeep Rivera MCHC (RBC) [Mass/Vol] 33.0 g/dL Normal 29.9-35.2 [facility] Comment on above: Performed By: #### HARI OLSONRO #### [facility] [address] [place] [address] Dr. Hardeep Rivera MCV (RBC) [Entitic vol] 89.8 fL Normal 81.0-99.0 [facility] Comment on above: Performed By: #### Deedee PINON UMICRO #### [facility] [address] [place] [address] Dr. Hardeep Rivera MONO # 0.7 103/ul Normal 0.3-0.8 [facility] Comment on above: Performed By: #### Deedee PINON UMICRO #### [facility] [address] [place] [address] Dr. Hardeep Rivera Monocytes/100 WBC (Bld) 11.6 % Normal 1.7-12.0 [facility] Comment on above: Performed By: #### Deedee PINON UMICRO #### [facility] [address] [place] [address] Dr. Hardeep Rivera NEUT # 5.0 103/ul Normal 1.4-6.5 [facility] Comment on above: Performed By: #### Deedee PINON ICRO #### [facility] [address] [place] [address] Dr. Hardeep Rivera Neutrophils/100 WBC (Bld) 77.5 % Critically high 43.0-75.0 [facility] Comment on above: Performed By: #### Deedee PINON UMICRO #### [facility] [address] [place] [address] Dr. Hardeep Rivera Platelet mean volume (Bld) [Entitic vol] 9.4 fL Critically low 9.5-13.5 [facility] Comment on above: Performed By: #### Deedee PINON UMICRO #### [facility] [address] [place] [address] Dr. Hardeep Rivera PLT 200 103/ul Normal 150-450 [facility] Comment on above: Performed By: #### Deedee PINON, UMICRO #### [facility] [address] [place] [address] Dr. Hardeep Rivera RBC 4.59 106/ul Normal 4.20-5.40 [facility] Comment on above: Performed By: #### E RANDALL PINON #### [facility] [address] [place], [place] [address] Dr. Hardeep Rivera WBC 6.4 103/ul Normal 4.0-11.0 [facility] Comment on above: Performed By: #### RANDALL OLSON #### [facility] [address] [place], [place] [address] Dr. Hardeep Rivera CNPBanner 08-02-2022 CNPN Telephone (JULIAN [facility]) -- SYLVIA HANNA ([id number]) 1945 F Date Time Provider Department 08/02/22 LOIDA MATHIAS [facility] During your visit today, we recorded the following information about you: Linden Rolandkarenyolasheirta 08/02/2022 1:42 PM Signed Patient had labs [...] mg by mouth three times daily. - ccmiay-cdbcrdkf-zyngdnw (CREON) 24,000-76,000 -120,000 unit cpDR Take 3 [...] Status:Closed by LINDEN WEEMS on 08/02/22 Normal [facility] PROF CHEM 8 (BAS METB)on Anion gap [Moles/Vol] 12.2 mmol/L Normal [facility] Comment on above: Performed By: #### Deedee PINON UMICRO #### [facility] [address] [place] [address] Dr. Hardeep Rivera Calcium [Mass/Vol] 8.6 mg/dL Normal 8.5-10.1 [facility] Comment on above: Performed By: #### Deedee PINON, UMICRO #### [facility] [address] [address] [address] Hardeep Rivera Chloride [Moles/Vol] 98 mmol/L Normal 98-107 [facility] Comment on above: Performed By: #### Deedee PINON, UMICRO #### [facility] [address] [address] [address] Hardeep Rivera CO2 [Moles/Vol] 27.7 mmol/L Normal 21.0-32.0 [facility] Comment on above: Performed By: #### Deedee PINON, UMICRO #### [facility] [address] [address] [address] Hardeep Rivera Creatinine [Mass/Vol] 1.42 mg/dL Critically high 0.55-1.02 [facility] Comment on above: Performed By: #### Deedee PINON, UMICRO #### [facility] [address] [address] [address] Hardeep Rivera EGFR-AF COLOMBIAN 43 mL/min/1.73m2 Critically low >=60 [facility] Comment on above: Performed By: #### HARI OLSONRO #### [facility] [address] [place] [address] Dr. Hardeep Rivera EGFR-NON AF COLOMBIAN 36 mL/min/1.73m2 Critically low >=60 [facility] Comment on above: Performed By: #### HARI OLSONRO #### [facility] [address] [place] [address] Dr. Hardeep Rivera Glucose [Mass/Vol] 119 mg/dL Critically high 74-[address] [facility] Comment on above: Performed By: #### HARI OLSONRO #### [facility] [address] [place] [address] Dr. Hardeep Rivera Potassium [Moles/Vol] 3.9 mmol/L Normal 3.5-5.1 [facility] Comment on above: Performed By: #### HARI OLSONRO #### [facility] [address] [place] [address] Dr. Hardeep Rivera Sodium [Moles/Vol] 134 mmol/L Critically low 136-145 [facility] Comment on above: Performed By: #### HARI OLSONRO #### [facility] [address] [place] [address] Dr. Hardeep Rivera Urea nitrogen [Mass/Vol] 21.0 mg/dL Critically high 7.0-18.0 [facility] Comment on above: Performed By: #### HARI OLSONRO #### [facility] [address] [place] [address] Dr. Hardeep Rivera Urea nitrogen/Creatinine [Mass ratio] 14.8 mg/mg Normal [facility] Comment on above: Performed By: #### HARI OLSONRO #### [facility] [address] [place] [address] Dr. Hardeep Rivera [facility] Tacrolimus (Bld) [Mass/Vol] 4.7 ng/mL Low 5.0-20.0 [facility] Comment on above: Order Comment: Speci [...] situation. Test performed by chemiluminescent immunoassay using Neurotrack. Performed By: #### 1 1253-2 ####[facility] LABCLIA [id number] [place] [address] [place] Giardia, Direct, EIAon 07-23 G. lamblia Ag IA Ql (Stl) Negative Invalid Interpretation Code Negative [facility] Comment on above: Result Comment: Perf ormed at: [address] [id number] PhD Sommer Davis Performed By: #### 4 [id number] ####[facility] [address] [place] [address] O & P EXAM, ROUTINE, REFLEXo n 07-23-2022 Ova and parasites identified Concentration Nom (Stl) Comment Invalid Interpretation Code [facility] Comment on above: Result Comment: No o va, cysts, or parasites seen. One negative specimen does not rule out the possibility of a parasitic infection. Performed at: [address] [id number] PhD Sommer Davis Performed By: #### 4 [id number] ####[facility] [address] [place] [address] O & P Exam, Routineon 2021 Ova and parasites identified LM Nom (Unsp spec) Final report Invalid Interpretation Code [facility] Comment on above: Result Comment: Thes e results were obtained using wet preparation(s) and trichrome stained smear. This test does not include testing for Cryptosporidium parvum, Cyclospora, or Microsporidia. Performed at: [facility] [address] [place] [id number] PhD Sommer Davis Performed By: #### 4 [id number] ####[address] [place] [address] Consent for Procedure/Surger yon 07-19-2022 Consent for Procedure/Surgery [id number]:12 7 Normal [facility] CMV IgMon 07-18-2022 CMV IgM IA Qn <30.0 Invalid Interpretation Code 0.0-29.9 [facility] Comment on above: Result Comment: Nega tive <30.0 Equivocal 30.0 - 34.9 Positive >34.9 A positive result is generally indicative of acute infection, reactivation or persistent IgM production. Performed at: [facility] [address] [place] [address] [id number] PhD Sommer Davis Performed By: #### 1 [id number] ####[address] [place] [address] Coding Summary.on 07-18-2022 Coding Summary. CD:[id number] Gh0bWw +PGhlYWQ+XH1VYEGzZ42uzIUxv X4KC4nCKV5ADLKNLFHJJV6SAP3 qePP3IPylI6QvmdDh BsnltHSsBN32GZt1XHT0gGvqUC bhjY9ccIKwY2e7NoPxES12aP60 SRahQHTrWwV4TfCcytnbiMMo K8laQsRybLRyJjv+PHRhYmxlIH vqNOJzGXvyZXPjWhUfzCllDQ5k Em2lPUPkUFDoyMbsaRShQtEr e4cxMQDpKYcwCK7ieNfoX5DtdL Z8IFUbx4e1Cn08tTK+PHRkIHN0 dLdlRSyyg247ArSfq0laWTS9 pCMkFSkdHSM5E70tr9K5CMYgDE RoUZX3tSQ9cZ0dzXabwtqkA3Xd yMRbYtY6SMJ3nLAojG0rmXcz gpcnbU2nZnp+C69PWO2PAYXRKY 9BRrk4C0AaBkfqsRI+AN85BBSn NX37wNHgkZOiw6laaDr8YvSm DQIpHNI4kVxfSDsyo1FxRDVqL6 2woNLic2I2MDFbmGiwbDLzOuIb mLJ1mZ1wCBmvbwxev8lbsyew Hbpen9cfjh41zX83G96fXMsoIT ZzIVF1RXRfQOFsiImnzt6eyA2j Ii8+PTefv1nkh8kjuRf7BkMo VFSkphRjtWkyNZY2c9VkYs89Z6 CzcSutz6SdFje9mp66uTDzw8U8 nZU4CVrvNNIkwI6vKFyfUxX2 MXCgHkWchI77rKMxRZyeOu4heF tgxJdoLE7sLPMsqjwzQMNxhV6c QKRryIHqeXxhEZ4qIVHpygay u867UrDyBZS7OMGthKLmG9XpbW 0dFdOnBMYyRRIcO5YxfTUlFQyd M472SKewHnL6BQMxkfVxV1Mc YLWfmCxdQbY8u8G3Az2Ca5Qxls wgGFU4GUfzXQE9BjL1MrEdHiY8 S0GuRua3NCZkoQccDA3rM3Fi LOUmmjnhvjnisIF1VDFdPBYdgE 18bOXbEGprKz6ke6Q0n042FILw TXCvzE08Yo6drUpgCGXvvNBN lA5jdmjyk9dbzffvAiXxOWGlAV m0NKp1ZVNrzQpiXmLlEWB4DiW1 FSL3nQDqrB8ikMbowsfhdY7o Oyc+C92tkF1eJXK7QPY3dakrJN UiinSqLF11BO31Q7ZqFqnxzNRz bGU+WTRxavRwmWokFA9jYnLt v6bxv3ZrGVdgK0SxWYLlTLreSs c4NTMaFWG3hJT3wR5rGWIvZNvs n8P9iAJ8T6AnkdGhjm5ht6lg QRQwJQxaI18uyPUlr8T8RVToqU H3VNOvqSvwKcYzzF76Hmm+PGNv qKgvy1FtTwyua4lco4fzaEj3 TtIqCCPtdrBncXeiYKK5h6LqBd 10N81rTRgvDJUlVQLoRKJuOFDv vKrxpt9huN8oOh6+PGNvbCB3 nBP8nQ7aXZHsXgT3DVpcO516Io BazUQcOfbfn1agi9ndnAo6CjWq KMEhgiMznVxbATP9k6YlQh17 U05mCFfzDDQfXADuXSJkITBjeK ydjr3kaW1uJw7+PS3it0upiw80 gK33mWO+AOQoMLH4cClnCBuz VEUfbJ7dHJlcKsI1EUCcKaMtzP 70qWYzYBinWr5bjEtoeUolSH3l EZVoiauon027FhUxa6dyAVIi vCLrQInyUKL1U48we2R0GRMjYL IyRJQ9nIU4lY6itVhyawtviXGc pZvpliSbkLgmPYmwGAadC756 IHRvcDsnPlBhdGllbnQgTmFtZT m3L0XzFxv4THHrtNgoKK6esGQb HYpsJv0xjOxxuUdeSJ5mWZAd mifgm366GtAew3ogRUNjwPUvVX mvUTF8S22je6T1BSErAMPtCQW9 dXE7nO3xeVjojmdwtQYpvQdu zaTbeAqzAQqaLRvkN781MNDzwO pnYuWmhwFmWNIwiSL9TO71NS51 eFTxh0E8lAC7J7MmOKHoykkn lxfhzPH9MUGvQPIppQ65Ts2gqZ viNy3iLPXmXKG2PHLtmTCsW7Ir eN1kPdAaOKKkXMFoR1DxhBRv JWnhO700ERomQeZ6TMBmclTqN5 FbBFMqvUdxWwZ6p4C8Lt2CD7K3 ZG28DJ30kHUsb0C5rQE0H4Ma GCLsrldbtswawVC6NWCnLVCwsD 45Rs6liVvbGs4qYMMvPCU5GYLi dYNqG6XofD4fYeQjWAHdJAYf P1IvqWCgKQoiK617EDkyHxO5SW UkynXuH1XmSNUtiJkpBiC0t6F9 Tb0LZCk0CG44EG66jJGxy9A7 vTN9A4ImITLianvsbbadeJK1PZ AfBJOdyC76Vf3iuOfkMk4eQNOe NMV5WVPtbWPkV2RrlF6lPwJb OJLwTEVpO0GnmPVtPPocF734TY wbFiZ8QEEvegNzQ7VtFCHbwSoa BjX1f9U4Dk2RCWHeEI77JNR3 rGJ1JX11ZI94X0PaPqdnpIBbjG U+PHRhYmxlIHdpZHRoPScxMDAl OvSfwKwtNK4rZt2zKMXxGPJu fNdbuWRfEkXgz5yqUHKtQGrvBT 7wkYrxL8TbgSB3CPOlh7y0Ud08 T79nT2HuwWN+HEVfdXJ9uFN0 xV3kLkRtWbK4OPfhJ402CrNvkS ZtGeeqy7lnj0uvfXw8WrL7ZESq ciYplUvnWTT0y9NyLh87V54i IHdpZHRoPSIxNSUiIHZhbGlnbj 5epZ8pZg4+JDCfcTI0kXF9bM3j AdLdThJ6OAyeT001LsEhjWLz Pdzdl2eaj6lzyQf6CqDdCNFuxh FvtUrtLOI9a4WhBr52W4AwtIpy e1CxZlb3aa55jIJtd2W7zKA9 A3KtXIGydamyzXXhgVskHT6jQZ WianhfWPJxzD1qTCUaA8c0YuQf CfW3SJbxK9OyljK9GOSglXTl UXhxYNW4N40ah3N1NJOdXVEfNI H3tHX7oW3uzMqlxzitxVWafGpp rtNwbXhgKGfrYWoaJ403WSXu qHvpNGSgoU4bISMisJKrxEcgNY 4wNTBpbjsnPlBFTkNFLCBISUxE PZQOOJ49BL93mCPys8X9kHM3 E4IgFQRrrjhoxyhjiRT8ZFDjPU JovV16fBCoSTbgPd1jz2I6d578 LAJgJYHunT32Zn1epLdnMTJp nJWWcH5lyeetv4bsjblmZtKmBK WzHFl9LPy5UCSdpRlwMdZcVCG6 JkH2WSL4cAFdlA8xtBdidcav wK1iWky+QXHoTbFgXWj0IZrumL Q+GVIkLAW3bGvgVCkyYWVqoQ6o AXLnN7e1DnLqIyT9PWskM1Bd EXCznssxHj81yI6kCfCaEbL8RV kaC9KnxqW8SPTqbCThVHcjWLG1 Y04sb1T7BVWjEEWtCYV0kWE0 tE8gwVnkgqpvsQNapIjeyoDiiW utQEikXWsxH243MCStzVpwSfn8 YUcwLLYaOK16YW57eQVnv7Z0 qMC3C1AkKLAtvnrokwcvjOU8QL QqEOVyhI56lABkTSdzJj5tj4R4 w642CJLvCBDvwO66Tl6wnXhy ZSJjoKVMeC5rapyzx5vhkgcuLz EeKWDdCQl7JVy4BCKrmZfwXsPw UZF2XmR5YUK3yKFpiD3fzTmg lsblrX0cJui+GgPeEBvrOX68SX 87jZVbv8V9yUY1L8YyWGZopcsj hscipEV2SACxNQLuhB29cBJg ZEccXz7ha1Z4i180LHNeQFMadX 23Kl8bqYowGTZtxOAXyJ4cexme c9laqjmoEvGkVZZmSOg6OKn7 IFPtyYrvIlEpMAD1ZsS4NVQ0kU GrjO4bcFsgmzmipG5mOqv+T3V0 sBS6fTCsdKkhwIM+XF71ay20 U1IxMbtnAso3MZEjNOD8cSG4aD 0cJHTdYYjio2Q0fFM2F4EgunIz ih9le5dkJWXkOLlzE58peNVt e4W2EERnhMV0IYNvhGuaDaCwuK 93Oyc+LKNiiPedu9NgYeepp8na w2xzqOb0WlDjQMBxytCshCvw JGM7j0CfEu27D59iONfwRRQwHD BmGYFqMJEthErhjy9vqL6uDz2+ XOZapHF2oPK8fE7gZgItJxC6 ARmuG096GaRzlYJkLgtyt2ryt6 wayFr7UmLpNFDvlfTlpFfhZNA0 y1KyHc23A0EaaYhnd9MzIrv7 vz90sPJny6M7sGS0S0OdXFGudd zmhVUofHfrTQ9sSJNhzhtdXPNw nH1bMDAzU7g8AmHkQiH2NJne M0OdxdK2KYQfuSYsXXKifDLCtJ 5oplmxf3qrrlkjNzKsVRBcUHp4 ERv4IFYezQopBkNxQJR4TvK2 QQO1kULgrD8qjDyihzkchG4dRa c+XDl0q1fvbWXfHM0qhNL7MM11 ZE76vBDwi7L7kSV6K2TeFEPs wlfnfyfnhRL5XRQvAQLuwX10Nn 4ttSljKj2rHBDoIVI2QUQggTLd L9HxyF5gFdSpHDPiDOUeT8Kq bMPyULxhM268XLyhNzB0NIXrfp MhW1YhJEHprVwsXzO3f7T1Uj6C TC94CH44FV34xNTkk3Y8zYL3 C2JzOPVtemdfkhsbfOB8KPFwWG CkwN14Os7hvCnePd1uLLArZDK1 DXEuhHFhB0IddI6aLeDtMJOg UXZkS8XwvSLxNDjfA024NEwhNl A6HHMykuLkE3WlGRZezFcoWvH8 m8N4Nv9LIt87JG06WY70nMOu e6E8kSK7J2AzCVJnqmkaarzctS I0JJXlEGLtwI14Xb6kcJhuMc6i NGXxFZQ0LNUuhDAxF0OizW8c JnZvESLvUUCuK9XovGUxSWqnQ0 07MXvjBfM7VVKlhzMcT9EpIFQy xFbjNkS4s5E8Zp4VKFurtqg8 C8VdQvmybEV+FZ55XYRrIX60lM FlrMEte0lnbEl4LsUqJSElZZA4 uQofFWmda8KxOEJdH87dcEFq c2U6 (more content not included)... Normal [facility] Coding Summary. CD:[id number] Gh0bWw +PGhlYWQ+IV6WAQZcV43qdITsd I6DW1oVWA6FOUHTQCATEW2XMX8 vuHY3JGsyV7TfadMo FnnahVFzNC30BBo4NIG2vMuyWL jdmE3clCSjP2l7KdFdSL36bY98 XYtoROSuPxR1TuHxcrauoKTc T7qiMiVpaLNeCbl+PHRhYmxlIH tbUQNtNFglUXXqKmNjyYqwEO6x Mp0eTROzVLObpOumwPXnArVc l8uuBOQeSGulHB2bmRghR3HbqO M9EFUlr6c1Hc85zSK+PHRkIHN0 rVlvJKpjc441IeAtb7roDCO5 sYKrHPjkZXF4S51yk5B4FVMwXW VxWFN7cPT6zG2qkEgsegooF6Jw hAApLwJ7WYS0rGFjsH8dfGdl plttsD5kPdr+W34ADL4XDKAQNS 6QZrn4U3BsGubumOF+PH51GZKh KR72zVExiCQll1wbkAw9QvOc EZJgYCQ4fIxxZTgfu0BcITOnJ5 3edCVkl9U9LREweDisfRFhHyOb rFV0dZ0rRVppwqqhy4mtoqgj Iouxk1mpjw60eU67Q19kJNnxQB WhHSM5KYFaMXLllIlssf3drS3u Ii8+ESctr3dkj9nsoPp2ShGv RNNnkdFfhHzqZJG3u2EkGq22Q9 XwjTzqy0YpZrc1zw70gOYrp9C3 iEU0UPxyVCCjyF8wLBsmKnP0 GIFpSyKlrS99mEPoZUzfQd5tdZ ltkDuoZG2gAEPcezawEMPdqA1g CPDimTXojNxkRY5pHGCwhofc t991ZuGxPRN4XJUuvBVbS9TgcP 2aCbUmREGnYQUvW9LouAVoZQsn A590HIklSbJ3FOWdtiQyX7Pa FBEfbBnhXwZ5l9W2Lt4Hl0Isvq mjHFU0LVevGHE3UrS0DpHeDlT3 Q8MaWdp4BMQnsBjxPA8yC8Wo SANbpmlqkyffcVK1JTRsPKRiwU 94uHGrHXgtLt7tm8J4y002VNYq OQBhhM77Nu3wrYmcSIOmpWJJ tL9yqxubg9qrbomaJtNzJXCqCH c4RBu6QFXdtWmkGcNsOPT2JeZ7 GFS9pDUtfU1utRzlwrmdoO0j Oyc+B25eoO4yHHY5OXR0wihmBG NufaCoGV02WF60C6EjCryiuRLl bGU+DQInslFotGuuJU3bUzBn y1oxo4JmSWiyD4FgDMWoRDugYv u3OBIkZOB9pXI3gO2sKRMbSGfn q1Y5mIE1K8KkbmPbdv9ff7fg XWKnMYjlY85ubKNal9J8LDHryO Y2DXZhvYhiFlDpeS21Yke+PGNv lPcus6QxEbpvs8ndg9vxjYu0 TdKpJUAqqcDruYnuXNB5r7FqNt 49M66mVVrkREUfZWGnSPIoIIPp mWjyqv4kgQ3sJi0+PGNvbCB3 dEH5nA5vOKStSbF5XJsoU579Vt NfwBKnUetsz0pix3vwnCz4UdSg JAQfxaCsfKqbAVZ9u1NdSg65 B99fGNgfWXIkUPJjFKXnNACmbB ccwf6snZ1xKx8+DA8cl5vsqn75 aZ45kLX+SIWnQIX6zOfzOKog WFDedS7uHZdxYzF6EZIqNxIvcT 27dGCuQPrjRm4atThhiInbJJ4f UDYburrdy712EuOik3pkVCGw qQOdVLutTMH7Z29os1M8JUKmCG SbALO5vCV5fR4ezBxeuwhgyLQa cOlhcxMijXtiSUmwKMgiS800 IHRvcDsnPlBhdGllbnQgTmFtZT g6Z2IfTbk2DIGthMezKD9crIAz DTbsBn7zcUzhtKhxQA0vMKTe wtvgu032NxLdy9vaCBDnpNZpBO wmEES4B82us4W8QADhFSXjYJR1 jZF7iB8fiLmzqsagpURmwCds ozVpbLfdCTxwPVvzW341PVQlnB qdPgGuyeRjAXIqwSN4KV26WR18 pNRxb1I6rSV4X1SnLPRuqpwk oagoyAU0SJFvCOQmdT33Qq9dwK yqSp9fFUPfTSS6BUAwqIKlN5Vk bO3pNvUfENQiYPGuC5TqkBOg HNvxG827ONbpEsV0ZHDhslWeY1 XdWMYpwRkaFaH6q4V8Lf5EC1N0 CV52AZ90iCOrw3U9rZV4B1Vz PMVelshvqnpelNF5GUFyNBXetL 77Hx5riLwjUf1sMNQmFHV3QETp kAVyP0YywT0lLyFhKKUvLNOw A0TacEAnNGaaQ006ISdpOzT3MM KexdMjO3NmVFOggYljReA0v0F4 Cv6FQRm3DJ26WW38fNQgj0E1 qLA8B6TqFCAwdtwzkhyznNT4TY KuVTPoyS75Vy6leWqdIm0tMKLz WRX3WBTzrQLuC3FttF4bTrOv OBJdESXxY7LzbMVgLVyaU714DO ouIxY4VLKtrmIgD0CtMYByrTwb XhB2o4Q2Eu6YFMXcZW27LRY0 iOU4CV54EG05L8XnQsoemEVxzS U+PHRhYmxlIHdpZHRoPScxMDAl IgVcqIrfHL1tIc9iJMNoGFDm wTcllOSbRoMqs2ohVGExXKygOA 1weWgzQ6NbqUD1PNPfi5g9Qq61 T40mG6WngPW+MBTrnII4aXM7 iO9vFrDyGoN8MTauW631VrElpM GgIfzni3tcj8pdmWj9SbM3DBKl ftMquHovIPM3s7JhXu01G95i IHdpZHRoPSIxNSUiIHZhbGlnbj 2dfG5wIx0+ZHKbcLR8sMC0dJ1k JpLhIdJ8PNihS427GrEaeJYd Excjs1gfn2tpxUh1BvWdTSCewy RjkKcfPNO7a1PqWl86V1AokTqu r0XtRhz7ni61jVUmr9N5xNQ2 S0EhPHMyfnmvvNPppMtyCI6iVK QhnjotZEYkiW2nGNEaE1m8XtUd PvP3QXwoN9MvjyS1RPHmcRKk VJuvRLY2N33qx7Y3YJKxDWQgDH L7sOM3vN2okVzmcxpdoWGvnNmy vjJuuAshBLkpCKwuH649ZQPd dSmcSGWabI8pSBKatLEnmGwxNV 4wNTBpbjsnPlBFTkNFLCBISUxE JGIWLI22PC78bGRpq1D0fQW5 I5IsVYCtlgpvpculkQR8FGYbVH OflC33pZNtDHdxGi3gp6G1v005 UAYtLSPfcI89Vl5woGvgZWSi fHHClH0cxzmwm2ywfudrPrXjRH IiJVc8MTc9KVJcmAqvQwFpKAC4 BcJ6RCJ1zOOyfF1znTlrxnlo lE9sEnk+UFYwSrTvKGt1IRaxzK Q+ZPHgQJS5cQlsDBzpRZTdhZ1l QUNhC4q4WmEqKqE2OXhqH0Lt BJMkxsukFz93iQ9uVoQnWvW4KH idA7SchlJ2VVRekRNpOXkhJFS1 K15ff4H5SQEzLIIjNXU3bNM3 iZ8uwMgqxtbfjFSfxKynycLjnP fvHWtiAQocR895EKUujDvcFcz0 EUyaDFJsSN71FH20wJQyw6H8 rMM0I9AzOXBuppusvjoxeFN8LW AhUNNueY31hHCtWCdsCd4pw2Z2 n832HQQlJCRbwV28Wn5ohUzx QMHzdPQOfJ3tbsiuo5hprchoOs SnHHZgNEj4ANh0CDTniHaoTbGv FOM5XuJ8BIN8fTWqvD4kgIhe vrpicW7mZua+DhQxZRkuGH99BB 17yDYch5E5bQS3C5SmRHLerzfz kcauoLR1FMVgYQSliB81uQIk FFxzFi9qi3J4u444JVLgBWBbmJ 13Kl9fzUwuYRVfaOXYsT8juamj x9cxxyboHnMhIBFbEEj7ICj6 DYZlvKwtVwRrJEM8SaD6LAV5tA AfpN5fcCsjfizeiQ3iWqf+TGFi ZSNqa8Nvg2TnUW43KN51D7Ob PjwvdGFibGU+PHRhYmxlIHdpZH PnGBxwZTPbAsZugImfAZ4iQw2q EDUnSKLmfMupfGIfSpFlv0jd NWLeFXraWT1wzJusQ3NyqNC3NB Gca5i0Bq13U14gK9EoxPY+PGNv xIE3bDZ6nO5eLwSpArK2ZNmn S833HuEflELmPffxo6fll2vocT i1RxOyUXBvjkSzzSfbCEY3k0If Zt19H58iUYizVVBoAMYtUEGn UYBwjGnjrj6jpJ6xYh3+PGNvbC H3eQQ9hE8yWlOsXkN7TDkjE572 PeXepSEsSanqF53kW4IukOJ+ GSZhCbc7LDTquFgjWX5yhBYqKJ ncAg7yZBF4FxAxKkHkBUtqL5Lt MVNeqviypclosKV0RATnGHOm kH86By9kmYrvMj3aXMKpXIN6FU StgNQuR8AazI4qEbQkTGGpQVQh D2VgcDTqHXhqB038BAxzCuC4 GTDzgrIkF7EiCHJelXmkZbA0e9 X7Zm1JpTulyFLgEF2aBfKnMHi2 F8GxUsy7QKTthCsiZG0ekJJk RGwhAr7oxZfytJcpMQ5vMMZrfr gae150MjLwa5wzWJOrtIRcALvw JGT7H48ii2Y7UXEcNJOiHYS3 mXF9zF1ndEmcttnotTRwrHomuh EmmFfgILipDAzsY901GLWohTql WbBOGbc2Z5KkRzp1XBPvnXcl HG5nlKUrMJpbTk1uyAyktXstNH 1tBHTknjmso271UeBlo3znBUSw oPHkAPuyDEO9I29kh4F4NQOh NTZhROG1xUP1bT8nhHxtawrpuH LqqPaaksZtoIsxNXecRAubK064 XVMbtMkhFv4VSey7J3CfOon3 ONIfsXoiRF9exJRnUAmcGv4gmJ hgyLldRN7qXQPfytxwt274DeVs q1cdIGNpvKEjIDjbHXO0S74e d1V9KOMfDQTbESJ1oKS0fG4foR lnbjogbGVmdDsgdmVydGljYWwt XNtrJ814AHZpsXzmRvBofUXb OjwvdGQ+BP65vg89J6JcZsmqCc z1VMEwJJH6eWG8jR6fEEJjZZcz s4X3oMW1T6PcjcDwzj9mz2im YXBz (more content not included)... Normal [facility] Enteric Panel by PCRon 07-18 C. coli+jejuni+upsalien sis DNA ULICES+non-probe Ql (Stl) Not detected Normal [facility] Comment on above: Result Comment: Test ing was performed utilizing reverse supervisor chemical (RT), polymerase chain reaction (PCR), and array [...] nulcleic acid test. Performed By: #### [id number] ####[facility] [address] [place] [address] E. coli stx1+stx2 genes ULICES+non-probe Ql (Stl) Negative Normal [facility] Comment on above: Performed By: #### [id number] ####[facility] [address] [place] [address] Enteric Panel by PCR Negative Normal [facility] Enteric Panel Intrl QC Pass Normal [facility] Comment on above: Result Comment: Test ing was performed utilizing reverse supervisor chemical (RT), polymerase chain reaction (PCR), and array [...] 1 and 2. Performed By: #### 4 [id number], [id number], [id number], [id number], [id number] ####[facility] [address] [place] [address] Norovirus genogroup I+II RNA ULICES+non-probe Ql (Stl) Detected Abnormal [facility] Comment on above: Result Comment: Resu lts Called To [facility] for Dr. Jama By [facility] And Read Back For Confirmation On 07/18/2022 08:49:23 EDT. Performed By: #### 4 [id number], [id number], [id number], [id number], [id number], [id number] ####[facility] [address] [place] [address] Rotavirus A RNA ULICES+non-probe Ql (Stl) Not detected Normal [facility] Comment on above: Performed By: #### 4 [id number], [id number], [id number], [id number], [id number], [id number] ####[facility] [address] [place] [address] S. enterica+bongori DNA ULICES+non-probe Ql (Stl) Not detected Normal [facility] Comment on above: Result Comment: This test result should be correlated with clinical presentations and medical history by a healthcare provider to determine its clinical significance. Performed By: #### 4 [id number], [id number], [id number], [id number], [id number], [id number] ####[facility] [address] [place] [address] Shigella species+EIEC invasion plasmid antigen H ipaH gene ULICES+non-probe Ql (Stl) Not detected Normal [facility] Comment on above: Performed By: #### 4 [id number], [id number], [id number], [id number], [id number], [id number] ####[facility] [address] [place] [address] V. cholerae+parahaemoly ticus+vulnificus DNA ULICES+non-probe Ql (Stl) Not detected Normal [facility] Comment on above: Performed By: #### 4 [id number], [id number], [id number], [id number], [id number], [id number] ####[address] [place] [address] Y. enterocolitica DNA ULICES+non-probe Ql (Stl) Not detected Normal [facility] Comment on above: Performed By: #### 4 [id number], [id number], [id number], [id number], [id number], [id number] ####[facility] [address] [place] [address] C. diff by PCRon 07-17-2022 Clostridium difficile by PCR see comment Invalid Interpretation Code [facility] Comment on above: Result [...] its clinical significance. Performed By: #### 4 [id number], [id number], [id number], [id number], [id number], [id number] ####[facility] [address] [place] [address] Fecal WBC Lactoferrinon 07-02 Fecal WBC Lactoferrin Positive Abnormal Negative [facility] Comment on above: Result Comment: The semi-quantitative detection of elevated levels of fecal lactoferrin is a marker for fecal leukocytes and an indication of intestinal inflammation. Performed By: #### 4 [id number], [id number], [id number], [id number], [id number], [id number] ####[facility] [address] [place] [address] Consent for Treatmenton 07-02 Consent for Treatment [id number]:127 Normal [facility] Gastroenterology Office/Clin ic Noteon 07-15-2022 Gastroenterology Office/Clinic Note Chief Complaint f/u ER- abd pain, diarrhea and vomiting HPI Staff This is a 76 year old female who presents today for a referral by Sue for abnormal radiology testing. Patient seen in [place] [facility] 01/2022 for complaints of diarrhea, abdominal pain and nausea.- CT and labs completed History of Present Illness Sylvia presents today for abdominal pain, diarrhea, and vomiting. She was recently seen in the [place] emergency room with abdominal pain, diarrhea, and vomiting. She notes that she had a heart transplant in [place] in 2017. Afterwards she experienced diarrhea which [...] She was prescribed Creon 24 mg at [facility] in 2017, due to being diagnosed [...] by h (more content not included)... Normal [facility] Comment on above: Result [...] Pancreatic lesion Valvular heart disease Kathie Maciel [facility] 07-05-2022 CNPN Telephone [facility] -- SYLVIA HANNA ([id number]) 1945 F Date Time Provider Department 07/05/22 SHO CROWLEY [facility] During your visit today, [...] care with another team. Sho Crowley APRN, [facility] Pager: [phone] July 05, 2022 10:42 AM Post Heart [...] transplant. No Dr Caldera: Rfl: TACROLIMUS/FK-506 BL [[id number]] Order #: [id number] FUTURE Prescriptions as of 07/05/2022 - tacrolimus [...] mg by mouth three times daily. 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 Normal [facility] BOX TEST SENT OUTon 07-03-20 22 SENT TO REF LAB 07/03/2022 Normal [facility] Comment on above: Performed By: #### E RANDALL PINON #### [facility] [address] [place] [address] Dr. Hardeep Rivera CBC AUTO DIFFon 07-03-2022 BASO # 0.0 103/ul Normal 0.0-0.1 [facility] Comment on above: Performed By: #### C BC #### [facility] [address] [place] [address] Dr. Hardeep Rivera Basophils/100 WBC (Bld) 0.3 % Normal 0.2-2.0 [facility] Comment on above: Performed By: #### C BC #### [facility] [address] [place] [address] Dr. Hardeep Rivera EO # 0.1 103/ul Normal 0.0-0.7 [facility] Comment on above: Performed By: #### C BC #### [facility] [address] [place] [address] Dr. Hardeep Rivera Eosinophils/100 WBC (Bld) 0.9 % Normal 0.9-7.0 [facility] Comment on above: Performed By: #### C BC #### [facility] [address] [place] [address] Dr. Hardeep Rivera Erythrocyte distribution width (RBC) [Ratio] 12.2 % Normal 11.0-15.0 [facility] Comment on above: Performed By: #### C BC #### [facility] [address] [place] [address] Dr. Hardeep Rivera Hematocrit (Bld) [Volume fraction] 42.3 % Normal 36.0-48.0 [facility] Comment on above: Performed By: #### C BC #### [facility] [address] [place] [address] Dr. Hardeep Rivera Hemoglobin (Bld) [Mass/Vol] 14.0 g/dL Normal 12.0-16.0 [facility] Comment on above: Performed By: #### C BC #### [facility] [address] [address] [address] Hardeep Rivera IG # 0.04 10e3/ul Critically high 0.00-0.03 [facility] Comment on above: Performed By: #### C BC #### [facility] [address] [place] [address] Dr. Hardeep Rivera IG % 0.5 % Normal 0.0-0.5 [facility] Comment on above: Performed By: #### C BC #### [facility] [address] [place] [address] Dr. Hardeep Rivera LYMPH # 0.8 103/ul Critically low 1.2-3.8 [facility] Comment on above: Performed By: #### C BC #### [facility] [address] [place] [address] Dr. Hardeep Rivera Lymphocytes/100 WBC (Bld) 10.9 % Critically low 20.5-60.0 [facility] Comment on above: Performed By: #### C BC #### [facility] [address] [place] [address] Dr. Hardeep Rivera MANUAL DIFF REQ NO Normal [facility] Comment on above: Performed By: #### C BC #### [facility] [address] [place] [address] Dr. Hardeep Rivera MCH (RBC) [Entitic mass] 29.7 pg Normal 26.7-34.0 [facility] Comment on above: Performed By: #### C BC #### [facility] [address] [place] [address] Dr. Hardeep Rivera MCHC (RBC) [Mass/Vol] 33.1 g/dL Normal 29.9-35.2 [facility] Comment on above: Performed By: #### C BC #### [facility] [address] [place] [address] Dr. Hardeep Rivera MCV (RBC) [Entitic vol] 89.8 fL Normal 81.0-99.0 [facility] Comment on above: Performed By: #### C BC #### [facility] [address] [place] [address] Dr. Hardeep Rivera MONO # 0.9 103/ul Critically high 0.3-0.8 [facility] Comment on above: Performed By: #### C BC #### [facility] [address] [place] [address] Dr. Hardeep Rivera Monocytes/100 WBC (Bld) 11.1 % Normal 1.7-12.0 [facility] Comment on above: Performed By: #### C BC #### [facility] [address] [place] [address] Dr. Hardeep Rivera NEUT # 5.8 103/ul Normal 1.4-6.5 [facility] Comment on above: Performed By: #### C BC #### [facility] [address] [place] [address] Dr. Hardeep Rivera Neutrophils/100 WBC (Bld) 76.3 % Critically high 43.0-75.0 [facility] Comment on above: Performed By: #### C BC #### [facility] [address] [place] [address] Dr. Hardeep Rivera Platelet mean volume (Bld) [Entitic vol] 9.5 fL Normal 9.5-13.5 [facility] Comment on above: Performed By: #### C BC #### [facility] [address] [place] [address] Dr. Hardeep Rivera PLT 191 103/ul Normal 150-450 [facility] Comment on above: Performed By: #### C BC #### [facility] [address] [place] [address] Dr. Hardeep Rivera RBC 4.71 106/ul Normal 4.20-5.40 [facility] Comment on above: Performed By: #### C BC #### [facility] [address] [place], [place] [address] Dr. Hardeep Rivera WBC 7.6 103/ul Normal 4.0-11.0 [facility] Comment on above: Performed By: #### C BC #### [facility] [address] [place], [place] [address] Dr. Hardeep Clark 07-03-2022 CNPN Telephone ([facility]) -- SYLVIA HANNA ([id number]) 1945 F Date Time Provider Department 07/03/22 [facility] During your visit today, we recorded the following information about you: Linden Weems 07/03/2022 1:02 PM Signed Patient had labs drawn 07/03/22, uploaded to [facility]. Allergies As of Date: 07/03/2022 Noted Allergy [...] mg by mouth three times daily. - ntvdvh-vflbmxvv-pbozrax (CREON) 24,000-76,000 -120,000 unit cpDR Take 3 [...] [J18.1] 12/03/2014 09/02/2019 DREW (acute kidney injury) ([facility]) [N17.9] 12/03/2014 Anxiety disorder [F41.9] 07/05/2015 Pain [R52] 11/14/2017 09/02/2019 Encounter Status:Closed by LINDEN WEEMS on 07/03/22 Normal [facility] PROF CHEM 8 (BAS METB)on Anion gap [Moles/Vol] 12.9 mmol/L Normal [facility] Comment on above: Performed By: #### HARI OLSONRO #### [facility] [address] [place] [address] Dr. Hardeep Rivera Calcium [Mass/Vol] 9.0 mg/dL Normal 8.5-10.1 [facility] Comment on above: Performed By: #### HARI OLSONRO #### [facility] [address] [address] [address] Hardeep Rivera Chloride [Moles/Vol] 98 mmol/L Normal 98-107 [facility] Comment on above: Performed By: #### HARI OLSONRO #### [facility] [address] [place] [address] Dr. Hardeep Rivera CO2 [Moles/Vol] 28.1 mmol/L Normal 21.0-32.0 [facility] Comment on above: Performed By: #### HARI OLSONRO #### [facility] [address] [place] [address] Dr. Hardeep Rivera Creatinine [Mass/Vol] 1.64 mg/dL Critically high 0.55-1.02 [facility] Comment on above: Performed By: #### HARI OLSONRO #### [facility] [address] [place] [address] Dr. Hardeep Rivera EGFR-AF COLOMBIAN 37 mL/min/1.73m2 Critically low >=60 [facility] Comment on above: Performed By: #### HARI OLSONRO #### [facility] [address] [place] [address] Dr. Hardeep Rivera EGFR-NON AF COLOMBIAN 30 mL/min/1.73m2 Critically low >=60 [facility] Comment on above: Performed By: #### HARI OLSONRO #### [facility] [address] [place] [address] Dr. Hardeep Rivera Glucose [Mass/Vol] 114 mg/dL Critically high 74-[address] [facility] Comment on above: Performed By: #### AKSHAT OLSONICRO #### [facility] [address] [address] [address] Hardeep Rivera Potassium [Moles/Vol] 4.0 mmol/L Normal 3.5-5.1 [facility] Comment on above: Performed By: #### E COLLINSR, UMICRO #### [facility] [address] [place] [address] Dr. Hardeep Rivera Sodium [Moles/Vol] 135 mmol/L Critically low 136-145 [facility] Comment on above: Performed By: #### E COLLINSR, UMICRO #### [facility] [address] [place] [address] Dr. Hardeep Rivera Urea nitrogen [Mass/Vol] 24.0 mg/dL Critically high 7.0-18.0 [facility] Comment on above: Performed By: #### E KATHRIN, UMICRO #### [facility] [address] [place] [address] Dr. Hardeep Rivera Urea nitrogen/Creatinine [Mass ratio] 14.6 mg/mg Normal [facility] Comment on above: Performed By: #### E KATHRIN, UMICRO #### [facility] [address] [place] [address] Dr. Hardeep Rivera Tacrolimus Bld-ncon 2021 Tacrolimus (Bld) [Mass/Vol] 12.4 ng/mL Normal 5.0-20.0 [facility] Comment on above: Order Comment: Speci [...] situation. Test performed by chemiluminescent immunoassay using [employer]. Performed By: #### 1 1253-2 ####[facility] LABCL[facility] [id number] [address] [address] [place] MG MAMM SCREEN 3D TRISHA CADon 05-28-2022 MG MAMM SCREEN 3D TRISHA CAD Patient: SYLVIA HANNA. Exam Date: 05/28/2022 : 1945 Gender:F Ordering : DR TAO DAVIS . Admission #: [id number] Family : Order #: [id number] CLICK HERE TO VIEW EXAM RADIOLOGY REPORT [...] Ibrahim MD on 05/28/2022 at 10:20 Normal [facility] Physician Referralon 022 Physician Referral [id number]:127 Normal [facility] CNPMary Kay 05-08-2022 CNPN Telephone (CARD [facility]F [facility]) -- SYLVIA HANNA ([id number]) 1945 F Date Time Provider Department 05/08/22 LOIDA MATHIAS [facility]ARD [facility] During your visit today, we recorded the following information about you: Linden Weems 05/08/2022 11:50 AM Signed Patient had labs drawn 05/07/22, uploaded to scanned docs. Linden Weems Administrative Image Archivist Loida Mathias APRN.CNP 05/08/2022 3:21 PM Signed [...] transplant. No Dr Caldera: Rfl: TACROLIMUS/FK-506 BL [[id number]] Order #: [id number] FUTURE Prescriptions as of 05/08/2022 - tacrolimus [...] mg by mouth three times daily. - lzodhw-ohxrvbec-vyvtekx (CREON) 24,000-76,000 -120,000 unit cpDR Take 3 [...] 05/19/2014 Orthosta (more content not included)... Normal [facility] BOX TEST SENT OUTon 05-07-20 22 SENT TO REF LAB 05/07/2022 Normal [facility] Comment on above: Performed By: #### RANDALL OLSON #### [facility] [address] [address] [address] Hardeep Rivera CBC AUTO DIFFon 05-07-2022 BASO # 0.0 103/ul Normal 0.0-0.1 [facility] Comment on above: Performed By: #### RANDALL OLSON #### [facility] [address] [place] [address] Dr. Hardeep Rivera Basophils/100 WBC (Bld) 0.4 % Normal 0.2-2.0 [facility] Comment on above: Performed By: #### RANDALL OLSON #### [facility] [address] [place] [address] Dr. Hardeep Rivera EO # 0.1 103/ul Normal 0.0-0.7 [facility] Comment on above: Performed By: #### RANDALL OLSON #### [facility] [address] [place] [address] Dr. Hardeep Rivera Eosinophils/100 WBC (Bld) 1.0 % Normal 0.9-7.0 [facility] Comment on above: Performed By: #### RANDALL OLSON #### [facility] [address] [place] [address] Dr. Hardeep Rivera Erythrocyte distribution width (RBC) [Ratio] 12.6 % Normal 11.0-15.0 [facility] Comment on above: Performed By: #### RANDALL OLSON #### [facility] [address] [place] [address] Dr. Hardeep Rivera Hematocrit (Bld) [Volume fraction] 44.0 % Normal 36.0-48.0 [facility] Comment on above: Performed By: #### RANDALL OLSON #### [facility] [address] [place] [address] Dr. Hardeep Rivera Hemoglobin (Bld) [Mass/Vol] 14.0 g/dL Normal 12.0-16.0 [facility] Comment on above: Performed By: #### RANDALL OLSON #### [facility] [address] [place] [address] Dr. Hardeep Rivera IG # 0.02 10e3/ul Normal 0.00-0.03 [facility] Comment on above: Performed By: #### RANDALL OLSON #### [facility] [address] [address] [address] Hardeep Rivera IG % 0.3 % Normal 0.0-0.5 [facility] Comment on above: Performed By: #### Deedee PINON UMICRO #### [facility] [address] [address] [address] Hardeep Rivera LYMPH # 0.6 103/ul Critically low 1.2-3.8 [facility] Comment on above: Performed By: #### E KATHRIN, UMICRO #### [facility] [address] [place] [address] Dr. Hardeep Rivera Lymphocytes/100 WBC (Bld) 8.2 % Critically low 20.5-60.0 [facility] Comment on above: Performed By: #### Deedee PINON UMICRO #### [facility] [address] [place] [address] Dr. Hardeep Rivera MANUAL DIFF REQ NO Normal [facility] Comment on above: Performed By: #### Deedee PINON UMICRO #### [facility] [address] [place] [address] Dr. Hardeep Rivera MCH (RBC) [Entitic mass] 29.4 pg Normal 26.7-34.0 [facility] Comment on above: Performed By: #### Deedee PINON UMICRO #### [facility] [address] [place] [address] Dr. Hardeep Rivera MCHC (RBC) [Mass/Vol] 31.8 g/dL Normal 29.9-35.2 [facility] Comment on above: Performed By: #### Deedee PINON, UMICRO #### [facility] [address] [place] [address] Dr. Hardeep Rivera MCV (RBC) [Entitic vol] 92.2 fL Normal 81.0-99.0 [facility] Comment on above: Performed By: #### Deedee PINON, UMICRO #### [facility] [address] [place] [address] Dr. Hardeep Rivera MONO # 0.8 103/ul Normal 0.3-0.8 [facility] Comment on above: Performed By: #### RANDALL OLSON #### [facility] [address] [place] [address] Dr. Hardeep Rivera Monocytes/100 WBC (Bld) 9.6 % Normal 1.7-12.0 [facility] Comment on above: Performed By: #### HARI OLSONRO #### [facility] [address] [place] [address] Dr. Hardeep Rivera NEUT # 6.3 103/ul Normal 1.4-6.5 [facility] Comment on above: Performed By: #### HARI OLSONRO #### [facility] [address] [place] [address] Dr. Hardeep Rivera Neutrophils/100 WBC (Bld) 80.5 % Critically high 43.0-75.0 [facility] Comment on above: Performed By: #### RANDALL OLSON #### [facility] [address] [place] [address] Dr. Hardeep Rivera Platelet mean volume (Bld) [Entitic vol] 10.1 fL Normal 9.5-13.5 [facility] Comment on above: Performed By: #### RANDALL OLSON #### [facility] [address] [place] [address] Dr. Hardeep Rivera PLT 188 103/ul Normal 150-450 [facility] Comment on above: Performed By: #### HARI OLSONRO #### [facility] [address] [place] [address] Dr. Hardeep Rivera RBC 4.77 106/ul Normal 4.20-5.40 [facility] Comment on above: Performed By: #### HARI OLSONRO #### [facility] [address] [place] [address] Dr. Hardeep Rivera WBC 7.8 103/ul Normal 4.0-11.0 [facility] Comment on above: Performed By: #### HARI OLSONRO #### [facility] [address] [place] [address] Dr. Hardeep Rivera PROF CHEM 8 (BAS METB)on Anion gap [Moles/Vol] 11.9 mmol/L Normal [facility] Comment on above: Performed By: #### E KATHRIN UMICRO #### [facility] [address] [address] [address] Hardeep Rivera Calcium [Mass/Vol] 8.7 mg/dL Normal 8.5-10.1 [facility] Comment on above: Performed By: #### E COLLINSR, UMICRO #### [facility] [address] [address] [address] Hardeep Rivera Chloride [Moles/Vol] 99 mmol/L Normal 98-107 [facility] Comment on above: Performed By: #### E KATHRIN, UMICRO #### [facility] [address] [address] [address] Hardeep Rivera CO2 [Moles/Vol] 27.1 mmol/L Normal 21.0-32.0 [facility] Comment on above: Performed By: #### Deedee PINON, UMICRO #### [facility] [address] [address] [address] Hardeep Rivera Creatinine [Mass/Vol] 1.62 mg/dL Critically high 0.55-1.02 [facility] Comment on above: Performed By: #### Deedee PINON, UMICRO #### [facility] [address] [address] [address] Hardeep Rivera EGFR-AF COLOMBIAN 37 mL/min/1.73m2 Critically low >=60 [facility] Comment on above: Performed By: #### E COLLINSR, UMICRO #### [facility] [address] [address] [address] Hardeep Rivera EGFR-NON AF COLOMBIAN 31 mL/min/1.73m2 Critically low >=60 [facility] Comment on above: Performed By: #### E COLLINSR, UMICRO #### [facility] [address] [address] [address] Hardeep Rivera Glucose [Mass/Vol] 73 mg/dL Critically low 74-106 [facility] Comment on above: Performed By: #### E KATHRIN UMICRO #### [facility] [address] [place] [address] Dr. Hardeep Rivera Potassium [Moles/Vol] 4.0 mmol/L Normal 3.5-5.1 [facility] Comment on above: Performed By: #### HARI OLSONRO #### [facility] [address] [place] [address] Dr. Hardeep Rivera Sodium [Moles/Vol] 134 mmol/L Critically low 136-145 [facility] Comment on above: Performed By: #### HARI OLSONRO #### [facility] [address] [place] [address] Dr. Hardeep Rivera Urea nitrogen [Mass/Vol] 33.0 mg/dL Critically high 7.0-18.0 [facility] Comment on above: Performed By: #### HARI OLSONRO #### [facility] [address] [place] [address] Dr. Hardeep Rivera Urea nitrogen/Creatinine [Mass ratio] 20.4 mg/mg Normal [facility] Comment on above: Performed By: #### HARI OLSONRO #### [facility] [address] [place] [id number] Dr. Hardeep Rivera TACROLIMUS/FK-506 BLon 05-07 Tacrolimus (Bld) [Mass/Vol] 3.4 ng/mL Low 5.0-20.0 [facility] Comment on above: Order Comment: Speci [...] situation. Test performed by chemiluminescent immunoassay using Neurotrack. Performed By: #### F K506 ####[facility] LABCLIA [id number] [address] OF [facility] Eduardo 05-03-2022 CNPN Telephone (CARD [facility]) -- SYLVIA HANNA ([id number]) 1945 F Date Time Provider Department 05/03/22 SHO CROWLEY [facility] During your visit today, we recorded the following information about you: Sho Crowley APRN.[employer] 05/03/2022 2:58 PM Signed received phone call from [facility] requesting patient's Tacrolimus levels from 04/24. Faxed results to [phone]. Allergies As of Date: 05/03/2022 Noted Allergy [...] mg by mouth three times daily. - rgocyy-ecysinbe-wnixubm (CREON) 24,000-76,000 -120,000 unit cpDR Take 3 [...] [J18.1] 12/03/2014 09/02/2019 DREW (acute kidney injury) ([facility]) [N17.9] 12/03/2014 Anxiety disorder [F41.9] 07/05/2015 Pain [R52] 11/14/2017 09/02/2019 Encounter Status:Closed by SHO CROWLEY on 05/03/22 Normal [facility] BOX TEST SENT OUTon 04-24-20 SENT TO REF LAB 04/24/2022 Normal [facility] Comment on above: Performed By: #### RANDALL OLSON #### [facility] [address] [address] [address] Hardeep Clark 04-24-2022 ODETTEN Telephone (JULIAN CONNELLY MAI) -- SYLVIA HANNA ([id number]) 1945 F Date Time Provider Department 04/24/22 LOIDA MATHIAS [facility] During your visit today, we recorded the following information about you: Linden Weems 04/24/2022 1:31 PM Signed Patient left message that she had labs drawn today. Linden Weems Administrative Image Archivist Post Heart Transplant J3-4 Loida Mathias APRN.ODETTE 04/26/2022 11:25 AM Signed Received FK level 4.5, drawn 04/24 My chart message sent to patient. Advised to remain on current dose and keep our office updated re: her plans for post transplant follow up. Loida Mathias APRN.[employer] April 26, 2022 11:24 AM Component Latest [...] mg by mouth three times daily. - jpyddd-igzdajjh-doboidh (CREON) 24,000-76,000 -120,000 unit cpDR Take 3 [...] [J18.1] 12/03/2014 09/02/2019 DREW (acute kidney injury) ([facility]) [N17.9] 12/03/2014 Anxiety disorder [F41.9] 07/05/2015 Pain [R52] 11/14/2017 09/02/2019 Encounter Status:Closed by LINDEN WEEMS on 04/24/22 Normal [facility] TACROLIMUS/FK-506 BLon 04-24 Tacrolimus (Bld) [Mass/Vol] 4.5 ng/mL Low 5.0-20.0 [facility] Comment on above: Order Comment: Speci [...] Test performed by chemiluminescent immunoassay using [employer] Filling Machine Operator. Performed By: #### F K506 ####[facility] LABCLIA [id number] [address] STATES OF [facility] FK506 (TACROLIMUS) WHOLE BLO ODon 04-11-2022 Tacrolimus (FK506), Blood 7.3 ng/mL Normal 2.0-20.0 [facility] Comment on above: Result Comment: Trou gh (immediately following transplant) 15.0 . Trough (steady state, 2 weeks or more after transplant): 3.0 - 8.0 . Performed by LC-MS/MS technology. Performed By: #### RANDALL OLSON #### [facility] [address] [place] [address] Dr. Hardeep Rivera BOX TEST SENT OUTon 04-09-20 SENT TO REF LAB 04/09/2022 Normal [facility] Comment on above: Performed By: #### RANDALL OLSON #### [facility] [address] [place] [address] Dr. Hardeep Rivera CBC AUTO DIFFon 04-09-2022 BASO # 0.0 103/ul Normal 0.0-0.1 [facility] Comment on above: Performed By: #### RANDALL OLSON #### [facility] [address] [place] [address] Dr. Hardeep Rivera Basophils/100 WBC (Bld) 0.1 % Critically low 0.2-2.0 [facility] Comment on above: Performed By: #### Deedee PINON UMICRO #### [facility] [address] [place] [address] Dr. Hardeep Rivera EO # 0.1 103/ul Normal 0.0-0.7 [facility] Comment on above: Performed By: #### Deedee PINON UMICRO #### [facility] [address] [place] [address] Dr. Hardeep Rivera Eosinophils/100 WBC (Bld) 1.2 % Normal 0.9-7.0 [facility] Comment on above: Performed By: #### Deedee PINON UMICRO #### [facility] [address] [place] [address] Dr. Hardeep Rivera Erythrocyte distribution width (RBC) [Ratio] 12.6 % Normal 11.0-15.0 [facility] Comment on above: Performed By: #### HARI OLSONRO #### [facility] [address] [place] [address] Dr. Hardeep Rivera Hematocrit (Bld) [Volume fraction] 44.1 % Normal 36.0-48.0 [facility] Comment on above: Performed By: #### AKSHAT OLSONICRO #### [facility] [address] [place] [address] Dr. Hardeep Rivera Hemoglobin (Bld) [Mass/Vol] 14.1 g/dL Normal 12.0-16.0 [facility] Comment on above: Performed By: #### Deedee PINON UMICRO #### [facility] [address] [place] [address] Dr. Hardeep Rivera IG # 0.02 10e3/ul Normal 0.00-0.03 [facility] Comment on above: Performed By: #### Deedee PINON UMICRO #### [facility] [address] [place] [address] Dr. Hardeep Rivera IG % 0.3 % Normal 0.0-0.5 [facility] Comment on above: Performed By: #### RANDALL OLSON #### [facility] [address] [place] [address] Dr. Hardeep Rivera LYMPH # 0.7 103/ul Critically low 1.2-3.8 [facility] Comment on above: Performed By: #### HARI OLSONRO #### [facility] [address] [place] [address] Dr. Hardeep Rivera Lymphocytes/100 WBC (Bld) 10.8 % Critically low 20.5-60.0 [facility] Comment on above: Performed By: #### HARI OLSONRO #### [facility] [address] [place] [address] Dr. Hardeep Rivera MANUAL DIFF REQ NO Normal [facility] Comment on above: Performed By: #### HARI OLSONRO #### [facility] [address] [place] [address] Dr. Hardeep Rivera MCH (RBC) [Entitic mass] 29.3 pg Normal 26.7-34.0 [facility] Comment on above: Performed By: #### RANDALL OLSON #### [facility] [address] [place] [address] Dr. Hardeep Rivera MCHC (RBC) [Mass/Vol] 32.0 g/dL Normal 29.9-35.2 [facility] Comment on above: Performed By: #### HARI OLSONRO #### [facility] [address] [place] [address] Dr. Hardeep Rivera MCV (RBC) [Entitic vol] 91.7 fL Normal 81.0-99.0 [facility] Comment on above: Performed By: #### HARI OLSONRO #### [facility] [address] [place] [address] Dr. Hardeep Rivera MONO # 0.7 103/ul Normal 0.3-0.8 [facility] Comment on above: Performed By: #### HARI OLSONRO #### [facility] [address] [place] [address] Dr. Hardeep Rivera Monocytes/100 WBC (Bld) 10.8 % Normal 1.7-12.0 [facility] Comment on above: Performed By: #### Deedee PINON UMICRO #### [facility] [address] [place] [address] Dr. Hardeep Rivera NEUT # 5.2 103/ul Normal 1.4-6.5 [facility] Comment on above: Performed By: #### Deedee PINON UMICRO #### [facility] [address] [place] [address] Dr. Hardeep Rivera Neutrophils/100 WBC (Bld) 76.8 % Critically high 43.0-75.0 [facility] Comment on above: Performed By: #### Deedee PINON UMICRO #### [facility] [address] [place] [address] Dr. Hardeep Rivera Platelet mean volume (Bld) [Entitic vol] 9.8 fL Normal 9.5-13.5 [facility] Comment on above: Performed By: #### AKSHAT OLSONICRO #### [facility] [address] [place] [address] Dr. Hardeep Rivera PLT 200 103/ul Normal 150-450 [facility] Comment on above: Performed By: #### Deedee PINON UMICRO #### [facility] [address] [place] [address] Dr. Hardeep Rivera RBC 4.81 106/ul Normal 4.20-5.40 [facility] Comment on above: Performed By: #### Deedee PINON UMICRO #### [facility] [address] [place] [address] Dr. Hardeep Rivera WBC 6.7 103/ul Normal 4.0-11.0 [facility] Comment on above: Performed By: #### Deedee PINON UMICRO #### [facility] [address] [place] [address] Dr. Hardeep Rivera PROF CHEM 8 (BAS METB)on Anion gap [Moles/Vol] 9.1 mmol/L Normal [facility] Comment on above: Performed By: #### HARI OLSONRO #### [facility] [address] [place] [address] Dr. Hardeep Rivera Calcium [Mass/Vol] 8.3 mg/dL Critically low 8.5-10.1 [facility] Comment on above: Performed By: #### AKSHAT OLSONICRO #### [facility] [address] [place] [address] Dr. Hardeep Rivera Chloride [Moles/Vol] 100 mmol/L Normal 98-107 [facility] Comment on above: Performed By: #### HARI OLSONRO #### [facility] [address] [place] [address] Dr. Hardeep Rivera CO2 [Moles/Vol] 28.1 mmol/L Normal 21.0-32.0 [facility] Comment on above: Performed By: #### HARI OLSONRO #### [facility] [address] [place] [address] Dr. Hardeep Rivera Creatinine [Mass/Vol] 1.54 mg/dL Critically high 0.55-1.02 [facility] Comment on above: Performed By: #### HARI OLSONRO #### [facility] [address] [place] [address] Dr. Hardeep Rivera EGFR-AF COLOMBIAN 40 mL/min/1.73m2 Critically low >=60 [facility] Comment on above: Performed By: #### Deedee PINON UMICRO #### [facility] [address] [place] [address] Dr. Hardeep Rivera EGFR-NON AF COLOMBIAN 33 mL/min/1.73m2 Critically low >=60 [facility] Comment on above: Performed By: #### HARI OLSONRO #### [facility] [address] [place] [address] Dr. Hardeep Rivera Glucose [Mass/Vol] 122 mg/dL Critically high 74-[address] [facility] Comment on above: Performed By: #### AKSHAT OLSONICRO #### [facility] [address] [address] [address] Hardeep Rivera Potassium [Moles/Vol] 4.2 mmol/L Normal 3.5-5.1 [facility] Comment on above: Performed By: #### E RUR, UMICRO #### [facility] [address] [place] [address] Dr. Hardeep Rivera Sodium [Moles/Vol] 133 mmol/L Critically low 136-145 [facility] Comment on above: Performed By: #### E RUR, UMICRO #### [facility] [address] [place] [address] Dr. Hardeep Rivera Urea nitrogen [Mass/Vol] 28.0 mg/dL Critically high 7.0-18.0 [facility] Comment on above: Performed By: #### E RUR, UMICRO #### [facility] [address] [place] [address] Dr. Hardeep Rivera Urea nitrogen/Creatinine [Mass ratio] 18.2 mg/mg Normal [facility] Comment on above: Performed By: #### E RUR, UMICRO #### [facility] [address] [place] [address] Dr. Hardeep Rivera TACROLIMUS/FK-506 BLon 04-09 Tacrolimus (Bld) [Mass/Vol] 9.9 ng/mL Normal 5.0-20.0 [facility] Comment on above: Order Comment: Speci [...] situation. Test performed by chemiluminescent immunoassay using Neurotrack. Performed By: #### F K506 ####[facility] LABCLIA [id number] [address] [address] [facility] Eduardo 10-10-2021 CNPN Telephone (JULIAN MARICEL ISACC) -- SYLVIA HANNA ([id number]) 1945 F Date Time Provider Department 10/10/21 LOIDA MATHIAS CARD [facility] During your visit today, we recorded the following information about you: Linden Weems 10/10/2021 11:57 AM Signed Patient had labs drawn today Linden Weems Administrative Image Archivist Linden Weems 10/11/2021 10:57 AM Signed Labs uploaded to scanned docs. Linden Weems Administrative Image Archivist Loida Mathias APRN.CNP 10/12/2021 12:28 PM Signed [...] transplant. No Dr Caldera: Rfl: TACROLIMUS/FK-506 BL [[id number]] Order #: [id number] FUTURE Prescriptions as of 10/12/2021 - tacrolimus [...] mg by mouth three times daily. - sapzub-porbxquy-habgtqc (CREON) 24,000-76,000 -120,000 unit cpDR Take 3 [...] [R10.31] 04/29/2014 09/02/2019 Diabetes mellitus, type II ([facility]) [E11.9] 04/29/2014 DREW (acute kidney injury) ([facility]) [N17.9] 05/06/2014 05/19/2014 Orthostasis [I95.1] 05/06/2014 05/19/2014 Gastroenteritis [K52.9] 05/18/2014 Right groin pain [R10.31] 05/18/2014 Diarrhea [R19.7] 11/29/2014 09/02/2019 Prophylactic immunotherapy [Z29.8] 11/29/2014 Pneumonia [J18.9] 11/29 (more content not included)... Normal [facility] Tacrolimus / [id number] 021 Tacrolimus / FK506 10.1 ng/mL Normal 5.0-20.0 [facility] Comment on above: Result Comment: Thes [...] Test performed by chemiluminescent immunoassay using [employer] Filling Machine Operator. Performed By: #### F K506 ####[facility] [id number] [place], [place] [id number] [facility] 09-13-2021 CNPN Telephone (JULIAN [facility]) -- SYLVIA HANNA ([id number]) 1945 F Date Time Provider Department 09/13/21 ARELIS NEWSOME CARD [facility] During your visit today, we recorded the following information about you: Linden Weems 09/13/2021 2:52 PM Signed S/w pt, due to transportation and financial constraints she is unable to come to [place] for appointments. Patient is working with her case assembler to establish care with a local rough rice tender (had previously been followed by one in [place]).Dr Rice has agreed and plan going forward will be to do a phone visit with pt on 10/03 and she will follow up in the interim with her local Medical Assistant [place]. Sending pt mailers and lab order, she will get those done as soon as she can. Linden Weems Administrative Image Archivist Allergies As of Date: 09/13/2021 Noted Allergy [...] mg by mouth three times daily. - zlqhju-ooknrrnd-ihonevh (CREON) 24,000-76,000 -120,000 unit cpDR Take 3 [...] Encounter Status:Closed by LINDEN WEEMS on 09/13/21 [facility] OBSOLETEon 09-12-2021 OBSOLETE Refill (JULIAN CONNELLY MAI ) -- SYLVIA HANNA ([id number]) 1945 F Date Time Provider Department 09/12/21 SANDRITA GUERRERO [facility] During your visit today, [...] mg by mouth three times daily. - cakvbm-afityszv-eyvxspe (CREON) 24,000-76,000 -120,000 unit cpDR Take 3 [...] Status:Closed by SANDRITA GUERRERO on 09/12/21 Normal [facility] Vital Signs Date Time Vital Sign Value Performing Clinician Dami charles 04-08-2023 06:45-0400 Diastolic blood pressure 76 mm[Hg] Richard Roby [facility] 04-08-2023 06:45-0400 Heart rate 59 /min Richard Roby [facility] 04-08-2023 06:45-0400 Hourly Rounding Richard Roby [facility] 04-08-2023 06:45-0400 Mean blood pressure 106 mm[Hg] Richard Roby [facility] 04-08-2023 06:45-0400 Respiratory rate 18 /min Richard Roby [facility] 04-08-2023 06:45-0400 SaO2% (BldA) [Mass fraction] 96 % Richard Roby [facility] 04-08-2023 06:45-0400 Systolic blood pressure 167 mm[Hg] Richard Roby [facility] 04-08-2023 05:30-0400 Diastolic blood pressure 88 mm[Hg] Richard Roby [facility] 04-08-2023 05:30-0400 Heart rate 52 /min Richard Roby [facility] 04-08-2023 05:30-0400 Hourly Rounding Richard Roby [facility] 04-08-2023 05:30-0400 Mean blood pressure 114 mm[Hg] Richard Roby [facility] 04-08-2023 05:30-0400 Respiratory rate 18 /min Richard Roby [facility] 04-08-2023 05:30-0400 SaO2% (BldA) [Mass fraction] 95 % Richard Roby [facility] 04-08-2023 05:30-0400 Systolic blood pressure 167 mm[Hg] Richard Roby [facility] 04-08-2023 04:39-0400 Diastolic blood pressure 90 mm[Hg] Richard Roby [facility] 04-08-2023 04:39-0400 Heart rate 56 /min Richard Roby [facility] 04-08-2023 04:39-0400 Hourly Rounding Richard Roby [facility] 04-08-2023 04:39-0400 Mean blood pressure 112 mm[Hg] Richard Roby [facility] 04-08-2023 04:39-0400 Respiratory rate 17 /min Richard Roby [facility] 04-08-2023 04:39-0400 SaO2% (BldA) [Mass fraction] 94 % Richard Roby [facility] 04-08-2023 04:39-0400 Systolic blood pressure 155 mm[Hg] Richard Roby [facility] 04-07-2023 21:48-0400 Respiratory rate 18 /min Richard Roby [facility] 04-07-2023 21:19-0400 Body temperature 98.06 [degF] Richard Ca [facility] 04-07-2023 21:19-0400 Heart rate 65 /min [facility]y [facility] 04-07-2023 21:19-0400 Respiratory rate 19 /min [facility] Roby [facility] Encounters Encounter Date Encounter Type Care Provider Facility Start: 07-01-2024 End: 07-01-2024 ambulatory [facility] Start: 06-18-2024 End: 06-18-2024 ambulatory NON STAFF [facility] Work Phone: Start: 06-18-2024 End: 06-18-2024 Departed Referred [facility] Start: 02-03-2024 End: 02-03-2024 ambulatory [facility] Start: 11-12-2023 End: 11-12-2023 ambulatory [facility] Start: 08-07-2023 End: 08-07-2023 ambulatory [facility] Start: 04-07-2023 End: 04-08-2023 Emergency department patient visit Richard GoodmanLaura Ca Facility:[facility] Start: 04-07-2023 End: 04-08-2023 Emergency department patient visit Richard GoodmanLaura Roby [facility] Start: 03-05-2023 End: 03-05-2023 ambulatory SCOT ROGERS Facility:[facility] Start: 02-26-2023 End: 02-27-[address] ANISHA DINH Facility:[facility] Start: 02-14-2023 End: 02-14-2023 ambulatory NANCY Sanchez Facility:[facility] Start: 02-13-2023 End: 02-14-2023 ambulatory SCOT ROGERS Facility:[facility] Start: 02-09-2023 End: 02-10-[address] NAISHA DINH Facility:[facility] Start: 01-09-2023 End: 01-10-[address] TAO DAVIS . Facility:[facility] Start: 12-13-2022 End: 12-14-2022 ambulatory SCOT ROGERS Facility:[facility] Start: 12-11-2022 End: 12-12-[address] TAO DAVIS . Facility:[facility] Start: 11-14-2022 End: 11-14-2022 ambulatory SCOT ROGERS Facility:[facility] Start: 10-03-2022 End: 10-03-2022 ambulatory SCOT ROGERS Facility:[facility] Start: 09-08-2022 Refill Sandrita Guerrero APRN.[employer] Work Phone: Cardiology Comment on above: Refill Request Start: 08-04-2022 End: 08-04-2022 ambulatory NANCY REYES . Facility:[facility] Start: 08-02-2022 Telephone encounter Loida Mathias APRN.[employer] Work Phone: Cardiology Comment on above: Heart Transplant Fol low Up (Labs/) Start: 08-02-2022 End: 08-03-[address] TAO DAVIS . Facility:[facility] Start: 07-27-[address] TAO DAVIS . Facili ty:[facility] Start: 07-17-2022 End: 07-18-2022 ambulatory [facility] Facility:[facility] Start: 07-16-2022 End: 07-17-2022 ambulatory [facility] Facility:[facility] Start: 07-16-2022 End: 07-16-2022 Patient encounter procedure [facility] Start: 07-12-2022 End: 07-13-2022 ambulatory [facility] Facility:[facility] Start: 07-05-2022 Telephone encounter Sho Crowley APRN.[employer] Work Phone: Cardiology Comment on above: Heart Transplant Fol low Up; Lab Meeting Start: 07-03-2022 Telephone encounter Soy Ross RN [facility] rdiology Comment on above: Heart Transplant Fol low Up (labs) Start: 07-03-2022 End: 07-04-[address] TAO DAVIS . Facility: Start: 05-28-2022 End: 05-29-[address] TAO DAVIS . Facility:[facility] Start: 05-23-2022 ambulatory [facility] Start: 05-08-2022 Telephone encounter Loida Mathias APRN.[employer] Work Phone: Cardiology Comment on above: Heart Transplant Fol low Up (labs) Start: 05-07-2022 End: 05-08-[address] TAO DAVIS . Facility: Start: 04-24-2022 Telephone encounter Loida Mathias APRN.[employer] Work Phone: Cardiology Comment on above: Heart Transplant Fol low Up Start: 04-24-2022 End: 04-25-[address] TAO DAVIS . Facility: Start: 04-20-[address] TAO DAVIS . Facili ty: Start: 04-11-2022 ambulatory Loida fontaine APRN.[employer] Work Phone: [facility] Start: 04-11-2022 Follow-up encounter Loida Mathias APRN.[employer] Work Phone: Cardiology Comment on above: Heart Transplant Fol low Up (Labs) Start: 04-09-2022 End: 04-10-[address] TAO DAVIS . Facility:[facility] Start: 04-06-2022 Orders Only Loida fontaine APRN.[employer] Work Phone: Cardiology Comment on above: Heart replaced by tr ansplant (HCC) (Primary Dx) Start: 04-04-2022 Refill Loiad fontaine APRN.[employer] Work Phone: Cardiology Comment on above: Rx Refills Start: 10-03-2021 End: 10-03-[address] [facility] Procedures Date Procedure Procedure Detail Performing Clinician Start: 08-10-2013 H/O: heart recipient Heart transplan arianna Lioda Mathias JUICE WEIGHER.[employer] Work Phone: H/O: heart recipient Heart transplanted ( [facility]) Loida Mathias JUICE WEIGHER.[employer] Work Phone: H/O: heart recipient Heart repla nitish by transplant ([facility]) Loida Mathias JUICE WEIGHER.[employer] Work Phone: H/O: heart recipient Heart transplanted ( [facility]) Loida Mathias JUICE WEIGHER.[employer] Work Phone: H/O: heart recipient Heart transplanted ( [facility]) Loida Mathias JUICE WEIGHER.[employer] Work Phone: H/O: heart recipient Heart transplanted ( [facility]) Sho Crowley JUICE WEIGHER.[employer] Work Phone: H/O: heart recipient Hx of heart transplant( Confirmed ) Eddie JAMA Plan of Treatment Date Care Activity Detail Author Start: 08-02-2022 Influenza vaccination INFLUENZA (#1) [facility] Start: 07-19-2022 End: 09-18-2022 Tacrolimus [Mass/volume] in Blood TACROLIMUS/FK-506 BL Lab Routine Heart transplanted ([facility]) Expected: 07/19/2022 (Approximate), Expires: 09/18/2022 [facility] Work Phone: Comment on above: Expected: 07/19/2022 (Approximate), Expires: 09/18/2022 Start: 05-21-2022 End: 07-21-2022 TACROLIMUS/FK-506 BL TACROLIMUS/FK-506 BL Lab Routine Heart transplanted ([facility]) Expected: 05/21/2022, Expires: 07/21/2022 [facility] Work Phone: Comment on above: Expected: 05/21/2022 , Expires: 07/21/2022 Start: 04-23-2022 End: 06-23-2022 TACROLIMUS/FK-506 BL TACROLIMUS/FK-506 BL Lab Routine Heart transplanted ([facility]) Expected: 04/23/2022, Expires: 06/23/2022 [facility] Work Phone: Comment on above: Expected: 04/23/2022 , Expires: 06/23/2022 Start: 04-09-2022 End: 06-09-2022 CBC W Auto Differential panel - Blood CBC + DIFF Lab Routine Heart replaced by transplant ([facility]) Expected: 04/09/2022, Expires: 06/09/2022 [facility] Work Phone: Comment on above: Expected: 04/09/2022 , Expires: 06/09/2022 Start: 04-09-2022 End: 06-09-2022 Comprehensive metabolic 2000 panel - Serum or Plasma COMP METABOLIC PANEL Lab Routine Heart replaced by transplant ([facility]) Expected: 04/09/2022, Expires: 06/09/2022 [facility] Work Phone: Comment on above: Expected: 04/09/2022 , Expires: 06/09/2022 Start: 04-09-2022 End: 04-06-2023 HEART/LUNG REC POST TX DSA HEART/LUNG REC POST TX DSA ALLOGEN Routine Heart replaced by transplant ([facility]) Expected: 04/09/2022, Expires: 04/06/2023 [facility] Work Phone: Comment on above: Expected: 04/09/2022 , Expires: 04/06/2023 Start: 04-09-2022 End: 06-09-2022 LIPID PANEL BASIC LIPID PANEL BASIC Lab Routine Heart replaced by transplant ([facility]) Expected: 04/09/2022, Expires: 06/09/2022 [facility] Work Phone: Comment on above: Expected: 04/09/2022 , Expires: 06/09/2022 Start: 04-09-2022 End: 06-09-2022 Magnesium [Mass/volume] in Serum or Plasma MAGNESIUM BLD Lab Routine Heart replaced by transplant ([facility]) Expected: 04/09/2022, Expires: 06/09/2022 [facility] Work Phone: Comment on above: Expected: 04/09/2022 , Expires: 06/09/2022 Start: 04-09-2022 End: 06-09-2022 TACROLIMUS/FK-506 BL TACROLIMUS/FK-506 BL Lab Routine Heart replaced by transplant ([facility]) Expected: 04/09/2022, Expires: 06/09/2022 [facility] Work Phone: Comment on above: Expected: 04/09/2022 , Expires: 06/09/2022 Start: 04-09-2022 End: 06-09-2022 URINALYSIS, DIPSTICK ONLY URINALYSIS, DIPSTICK ONLY Lab Routine Heart replaced by transplant (HCC) Expected: 04/09/2022, Expires: 06/09/2022 [facility] Work Phone: Comment on above: Expected: 04/09/2022 , Expires: 06/09/2022 Start: 12-02-2021 ADVANCE DIRECTIVE DISCUSSION ADVANCE DIRECTIVE DISCUSSION [facility] Start: 09-26-2021 COVID-19 VACCINE (3 - Pfizer risk 4-dose series) COVID-19 VACCINE (3 - Pfizer risk 4-dose series) [facility] Start: 09-26-2021 COVID-19 VACCINE (3 - Pfizer risk series) COVID-19 VACCINE (3 - Pfizer risk series) [facility] Start: 03-04-2020 Hepatitis B surface antibody level LDL CHOLESTEROL [facility] Start: 06-14-2015 Hemoglobin A1c/Hemoglobin.total in Blood HBA1C [facility] Start: 11-01-2013 PNEUMOCOCCAL: 65+ (3 - PCV) PNEUMOCOCCAL: 65+ (3 - PCV) [facility] Start: 2009 ADULT PREVNAR ADULT PREVNAR [facility] Start: 1994 SHINGRIX VACCINE (1 of 2) SHINGRIX VACCINE (1 of 2) [facility] Start: 1963 SHINGRIX VACCINE (1 of 2) SHINGRIX VACCINE (1 of 2) [facility] Start: 1963 Urine microalbumin profile DTAP,TDAP,TD (1 - Tdap) [facility] Start: 1962 ANNUAL PCP TEAM AIR INTERCEPT CONTROLLER [place] DISEASE VISIT ANNUAL PCP TEAM CHRONIC DISEASE VISIT [facility] Start: 1962 BP CONTROLLED (<130/80) BP CONTROLLE D (<130/80) [facility] Start: 1954 3 comp foot exam completed DIABETIC FOOT EXAM [facility] Start: 1954 Hepatitis B screening URINE ALBUMIN:CREATININE RATIO [facility] Start: 1954 Hepatitis C antibody , confirmatory test DILATED RETINAL EXAM [facility] Start: 1950 PNEUMOCOCCAL: 65+ (1 - PCV) PNEUMOCOCCAL: 65+ (1 - PCV) [facility] Immunizations Immunization Date Immunization Notes Care Provider Fa cility 06-05-2022 SARS-CoV-2 mRNA (ifplrolcuct-czqx-gpqrt se) vaccine Morgan SALAM [facility] 08-29-2021 SARS-CoV-2 (COVID-19 ) mRNA BNT-162b2 vax Morgan SALAM [facility] 08-02-2021 SARS-CoV-2 (COVID-19 ) mRNA BNT-162w2 vax Morgan SALAM [facility] 07-05-2021 influenza virus vaccine, unspecified formulation Morgan SALAM [facility] 09-29-2020 influenza, unspecifi ed formulation Morgan SALAM [facility] 07-24-2020 influenza virus vaccine, unspecified formulation Morgan SALAM [facility] 09-02-2017 influenza virus vaccine, unspecified formulation Morgan SALAM [facility] 08-07-2017 pneumococcal conjuga te vaccine, 13 valent Morgan SALAM [facility] 08-14-2016 influenza virus vaccine, unspecified formulation Morgan SALAM [facility] 09-29-2015 pneumococcal conjuga te vaccine, 13 valent Morgan SALAM [facility] 08-04-2015 influenza virus vaccine, unspecified formulation Morgan SALAM [facility] 09-15-2014 influenza virus vaccine, whole virus Loida Iammarino JUICE WEIGHER[employer] Work Phone: [facility] 09-15-2014 influenza, whole Morgan SALAM [facility] 11-01-2012 pneumococcal polysaccharide vaccine, 23 valent Loida Iammarino JUICE WEIGHER[employer] Work Phone: [facility] 12-28-2009 novel [id number], all formulations Loida Iammarino JUICE WEIGHER[employer] Work Phone: [facility] Work Phone: 08-19-2009 influenza virus vaccine, unspecified formulation Loida Iammarino JUICE WEIGHER.[employer] Work Phone: [facility] 09-01-2006 influenza virus vaccine, unspecified formulation Loida Iammarino JUICE WEIGHER.[employer] Work Phone: [facility] Work Phone: 09-01-2006 pneumococcal polysaccharide vaccine, 23 valent Loida Iammarino JUICE WEIGHER.[employer] Work Phone: [facility] Work Phone: NEGATED: Highlighted row has not occurred!07-12-2022 influenza virus vaccine, unspecified formulation Morgan SALAM [facility] Payers Date Payer Category Payer Self-pay 2022 Medicare UHC MEDICARE UHC DUAL COMPLETE HMO SNP [id number] 2022-Present [phone] [address] [place] [address] Medicare [id number] 2022 Medicare UHC MEDICARE UHC DUAL COMPLETE HMO SNP [id number] 2022-Present [phone] [address] [place] [address] Medicare [id number] 2020 Unknown [id number] 1959 Medicaid [id number] 1959 Medicare [id number] 1959 Self-pay [id number] 1959 Unknown [id number] 1944 Unknown [id number] 2.16.840.1.223314.3.579.2.593 1944 Unknown [id number] 2.16.840.1.606685.3.579.2.593 1944 Unknown [id number] 2.16.840.1.485162.3.579.2.593 1944 Unknown [id number] 2.16.840.1.041337.3.579.2.593 1944 Unknown [id number] 2.16.840.1.624570.3.579.2.593 1944 Unknown [id number] 2.16.840.1.876594.3.579.2.593 1944 Unknown [id number] 2.16.840.1.035514.3.579.2.593 1944 Unknown [id number] 2.16.840.1.673037.3.579.2.593 1944 Unknown [id number] 2.16.840.1.210835.3.579.2.593 1944 Unknown [id number] 2.16.840.1.803217.3.579.2.593 1944 Unknown [id number] 2.16.840.1.903321.3.579.2.593 1944 Unknown [id number] 2.16.840.1.478183.3.579.2.593 1944 Unknown [id number] 2.16.840.1.995956.3.579.2.593 1944 Unknown [id number] 2.16.840.1.990714.3.579.2.593 1944 Unknown [id number] 2.16.840.1.171488.3.579.2.593 1944 Unknown [id number] 2.16.840.1.368309.3.579.2.593 1944 Unknown [id number] 2.16.840.1.557359.3.579.2.593 1944 Unknown [id number] 2.16.840.1.818308.3.579.2.593 1944 Unknown [id number] 2.16.840.1.165919.3.579.2.727 1944 Unknown [id number] 2.16.840.1.326000.3.579.2.727 1944 Unknown [id number] 2.16.840.1.015180.3.579.2.727 1944 Unknown [id number] 2.16.840.1.538987.3.579.2.727 1944 Unknown [id number] 2.16.840.1.724815.3.579.2.727 Unknown [id number] 2.16.840.1.256015.3.579.2.593 Social History Date Type Detail Facility Start: 05-13-2019 Tobacco smoking stat [facility] Ex-smoker [facility] Work Phone: History of tobacco use Cigarette Smoker [facility] Work Phone: Start: 09-07-2019 Alcohol intake Current non-dr fish liver sorter of alcohol (finding) [facility] Start: 1945 Sex Assigned At Not on file [facility] Start: 07-12-2022 Never smoked t obacco (finding) [facility] Never [facility] Female [facility] History of tobacco use Current smoker [facility] Start: 05-13-2019 Cigarettes smoked current (pack per day) - Reported 0.3 [facility] Start: 05-13-2019 Tobacco use and exposure Smokeless tobacco non-user [facility] Start: 1945 Sex Assigned At Female F [facility] Functional Status Date Assessment Result Facility 04-07-2023 Functional Status N/A [facility] Clinical Notes 11-14-2017 to 07-01-2024 Note Date & Type Note Facility 07-01-2024 Note [place] Cardiology - [facility] Subjective Sylvia Hanna is a 78 y.o. year old female patient being seen for follow up [facility] for syncope. Says she's been having [...] Alcohol use: Not Currently Drug use: Never [facility] Visit of 10/30/2021: Sylvia is seen [...] in 2007. She is followed by the [facility] cardiology service. She has had no [...] There is no (more content not included)... [facility] 02-03-2024 Note [place] Cardiology - [facility] Subjective Sylvia Hanna is a 78 y.o. year old female patient being seen for follow up [facility]. She was seen as inpatient consult [...] in 2007. She is followed by the [facility] cardiology service. She has had no [...] the prior echocardiographi (more content not included)... [facility] 11-12-2023 Note [place] Cardiology - [facility] Subjective Sylvia Hanna is a 77 [...] in 2007. She is followed by the [facility] cardiology service. She has had no [...] Stress Testing (1 (more content not included)... [facility] 10-28-2023 Note [facility] 08-07-2023 Note [place] Cardiology - [facility] Subjective Sylvia Hanna is a 77 [...] in 2007. She is followed by the [facility] cardiology service. She has had no [...] scan. [address] [facility] (more content not included)... [facility] 07-23-2023 Note ta [facility] [...] ?Adrenal gland problems. ?Metabolic conditions, such as [place]'s disease or syndrome of inappropriate antidiuresis (SIAD). [...] improvement. Follow these instructions at home: Take fbip-jyv-kjnzxnm and prescription medicines only as told by [...] provider. Document Revised: 05/29/2022 Document Reviewed: 05/29/2022 [employer] Patient Education 2022 [employer]ot. 04/08/2023 08:56:02 Nonspecific Chest Pain, Adult Nonspecific [...] Follow these instructions at home: Medicines Take xzwz-ygi-yrxhzcl and prescription medicines only as told by [...] provider. Document Revised: 02/01/2022 Document Reviewed: 02/01/2022 [employer] Patient Education 2022 [employer]. Follow Up Care 04/07/2023 21:19:10 With:[facility] Address: [address] [place] [address]- [phone] Business (1) When:Within 3 Day(s) [facility] 04-07-2023 Evaluation + Plan note [...] Troponin 9 Hr. XR Chest Single View [facility]09-01-2022 Miscellaneous Notes* Telephone Encounter - Linden Weems - 08/02/2022 1:41 PM EDT Patient had labs drawn 08/02/22, uploaded to scanned docs. [facility] Miscellaneous Notes* Telephone Encounter - Sho Crowley [...] another team. Sho Crowley APRN, ODETTE Pager: [phone] July 05, 2022 10:42 AM Post Heart Transplant Nurse Practitioner [facility] Miscellaneous Notes* Telephone Encounter - Linden Weems - 07/03/2022 12:59 PM EDT Patient had labs drawn 07/03/22, uploaded to scanned docs. [facility] Miscellaneous Notes* Addendum Note - Loida Mathias [...] uploaded to scanned docs. Linden Weems Administrative Image Archivist documented [facility] Miscellaneous Notes* Telephone Encounter - Lniden Weems - 04/24/2022 1:31 PM EDT Patient left message that she had labs drawn today. Linden Weems Administrative Image Archivist Post Heart Transplant J3-4 documented in [facility] encounter[facility]-2022 NoteHNO ID: [id number] Author: Loida Mathias APRN.CNP Service: ? Author [...] reports she can no longer travel to [place]. She does not have a ride, she has no family or friends to lean on. She has made an appt with a local Medical Assistant [place]. She will ask him if there are any transplant doctors or centers near her and potentially need to transfer her care. She will keep us updated. Loida Mathias APRN.[employer] April 12, 2022 2:25 [facility]05-11-2022 History of Present illness Narrative* Loida Mathias APRN.[employer] - 04/11/2022 3:42 PM EDT Received outside [...] reports she can no longer travel to [place]. [place] not have a ride, she has no family or friends to lean on. She has made an appt with a local Medical Assistant Per Di[place]. She will ask him if there are any transplant doctors or centers near her and potentiallyneed to transfer her care. She will keep us updated. Loida Mathias APRN.CNP April 12, 2022 2:25 PM documented in [facility] encounter[facility]11-[facility]-2021 NoteHNO ID: [id number] Author: Loida Mathias APRN.CNP Service: ? Author [...] Loida Mathias APRN.CNP October 09, 2021 4:10 [facility]11-02-2021 NoteHNO ID: [id number] Author: Nicolette Rice MD Service: ? Author Type: Physician Type: Progress Notes Filed: 10/03/2021 4:12 PM Note Text: Heart, Vascular AND Thoracic [place] Department of Cardiovascular Medicine TELEPHONE VISIT PROGRESS [...] in ~6 months. Will see a local rough rice tender at the end of the month. Data Reviewed: No new labs Assessment: She is doing well clinically and her BP is controlled. ? Plan: 1. She was instructed to continue the current medical program. 2. RTC per post-transplant protocol. Total Time Spent: 21-30 minutes Nicolette Rice, [facility]12-14-2017 History of Past illness Narrative* Problem [...] of this encounter (statuses as of 04/05/2022) [facility] History of Past illness Narrative* Problem Noted [...] of this encounter (statuses as of 04/06/2022) [facility]12-14-2017 History of Past illness Narrative* Problem Noted [...] of this encounter (statuses as of 04/12/2022) [facility]2017 History of Past illness Narrative* Problem Noted [...] of this encounter (statuses as of 04/24/2022) [facility] History of Past illness Narrative* Problem Noted [...] of this encounter (statuses as of 05/08/2022) [facility] History of Past illness Narrative* Problem Noted [...] of this encounter (statuses as of 07/03/2022) [facility] History of Past illness Narrative* Problem Noted [...] of this encounter (statuses as of 07/05/2022) [facility]2017 History of Past illness Narrative* Problem Noted [...] of this encounter (statuses as of 08/02/2022) [facility]-14[facility]2017 History of Past illness Narrative* Problem Noted [...] of this encounter (statuses as of 09/11/2022) [facility] [place] [facility] Plan note Future Appointments Appointment Date:08/01/2022 01:50:00 PM Scheduled Provider: Location:[facility] Appointment Type:Surgery FT Diagnostic Tests Pending * CMV Antibody IgM 07/16/22 Future Scheduled Tests Laboratory* Fecal WBC Lactoferrin 07/12/22 * Giardia lamblia, Direct Detection EIA 07/12/22 * O & P Exam, Routine 07/12/22 * Clostridium difficile by PCR 07/12/22 * Enteric Panel by PCR 07/12/22 [facility] (H[facility]) Heart replaced by transplant documented in this encounter [facility] note* Diagnosis Heart replaced by transplant (HCC)- Primary Heart replaced by transplant documented in this encounter [facility] note* Diagnosis Heart replaced by transplant (HCC)- Primary Heart replaced by transplant Heart transplanted (HCC) Heart [facility] by transplant [facility] ([facility]) Heart [facility] by transplant [facility] Diagnosis Heart transplanted (HCC) Heart replaced by transplant [facility] noteNo assessment information availableOhio[facility] Work Phone: Hospital course Narrative No data available for this section [facility] Dis[facility] instructions No data available for this section [facility] No data available for this section [facility] Advance Directives No Advanced Directives Records FoundDocuments on File Type Date Recorded 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 Advance Directive(s) 11/14/2017 5:44 AM Advance Directive(s) 01/02/2012 12:00 AM Advance Directive(s) 01/17/2007 12:00 AM Documents on File Type Date Recorded 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 Advance Directive(s) 01/02/2012 Advance Directive(s) [...] or prosecute any alcohol or drug abuse patient.[facility] the event this information is protected by the Federal Confidentiality of Alcohol and Drug Abuse Patient Records regulations: The Federal rules restrict any use of the information to criminally investigate or prosecute any alcohol or drug abuse patient.[facility] the event this information is protected by the Federal Confidentiality of Alcohol and Drug Abuse Patient Records regulations: The Federal rules restrict any use of the information to criminally investigate or prosecute any alcohol or drug abuse patient.[facility] the event this information is protected by the Federal Confidentiality of Alcohol and Drug Abuse Patient Records regulations: The Federal rules restrict any use of the information to criminally investigate or prosecute any alcohol or drug abuse patient.[facility] DaytonIn the event this information is protected by the Federal Confidentiality of Alcohol and Drug Abuse Patient Records regulations: The Federal rules restrict any use of the information to criminally investigate or prosecute any alcohol or drug abuse patient.[facility] DaytonIn the event this information is protected by the Federal Confidentiality of Alcohol and Drug Abuse Patient Records regulations: The Federal rules restrict any use of the information to criminally investigate or prosecute any alcohol or drug abuse patient.[facility] DaytonIn the event this information is protected by the Federal Confidentiality of Alcohol and Drug Abuse Patient Records regulations: The Federal rules restrict any use of the information to criminally investigate or prosecute any alcohol or drug abuse patient.[facility] DaytonIn the event this information is protected by the Federal Confidentiality of Alcohol and Drug Abuse Patient Records regulations: The Federal rules restrict any use of the information to criminally investigate or prosecute any alcohol or drug abuse patient.[facility] DaytonIn the event this information is protected by the Federal Confidentiality of Alcohol and Drug Abuse Patient Records regulations: The Federal rules restrict any use of the information to criminally investigate or prosecute any alcohol or drug abuse patient.[facility] Reason for Visit (unrecogniz ed section and content) Reason Comments Rx Refills Reason Comments Heart Transplant Follow Up Labs Reason Comments Heart Transplant Follow Up Reason Comments Heart Transplant Follow Up labs Reason Comments Heart Transplant Follow Up Lab Meeting Reason Comments Refill Request Care Teams (unrecognized sec tion and content) Recordings Librarian Relationship Specialty Start Date End Date Tao Davis MD [address] [place] [address] PCP - General Family Practice 05/13/19 Recordings Librarian Relationship Specialty Start Date End Date Tao Davis MD [address] [place] [address] PCP - General Family Practice 05/13/19 Recordings Librarian Relationship Specialty Start Date End Date Tao Davis MD [address] [place] [address] PCP - General Family Practice 05/13/19 Recordings Librarian Relationship Specialty Start Date End Date Tao Davis MD [address] [place] [address] PCP - General Family Practice 05/13/19 Recordings Librarian Relationship Specialty Start Date End Date Tao Davis MD [address] [place] [address] PCP - General Family Practice 05/13/19 Recordings Librarian Relationship Specialty Start Date End Date Tao Davis MD [address] [place] [address] PCP - General Family Medicine 05/13/19 Team Status: Inactive Member Role Status Dates NON STAFF Attending Provider Active Start: Ju palmira 2023 End: June 18, 2024 INFORMATION SOURCE (unrecogn ized section and content) DATE CREATED AUTHOR 09/01/2022 [facility] DATE CREATED AUTHOR AUTHOR'S ORGANIZ ATION 03/09/2023 [facility] DATE CREATED AUTHOR AUTHOR'S ORGANIZ ATION 04/08/2023 [facility] DATE CREATED AUTHOR AUTHOR'S ORGANIZ ATION 06/21/2024 [facility] DATE CREATED AUTHOR AUTHOR'S ORGANIZ ATION 07/03/2024 [facility] Goals (unrecognized section and content) Goals may [...] BE BASED ON THE PRIMARY CLINICAL RECORDS. [employer] [facility]. provides no warranty or guarantee of the accuracy or completeness of information in this document.
[2024-07-08 12:19] LABS: Eosinophils Absolute Auto 0.1 10^3/uL (0.0-0.7); Hematocrit 36.9 % (36.0-48.0); Hemoglobin 11.8 g/dL (12.0-16.0); Immature Granulocytes Abs Auto 0.03 10^3/uL (0.00-0.03); Immature Granulocytes Pct Auto 0.4 % (0.0-0.5); Lymphocytes Absolute Auto 0.8 10^3/uL (1.2-3.8); Lymphocytes Percent Auto 10.2 % (20.5-60.0); Mean Corpuscular Hemoglobin 28.9 pg (26.7-34.0); Mean Corpuscular Volume 90.2 fL (81.0-99.0); Mean Platelet Volume 10.4 fL (9.5-13.5); Monocytes Absolute Auto 0.7 10^3/uL (0.3-0.8); Monocytes Percent Auto 8.7 % (1.7-12.0); Neutrophils Absolute Auto 6.2 10^3/uL (1.4-6.5); Neutrophils Percent Auto 79.7 % (43.0-75.0); Platelet Count 191 10^3/uL (150-450); Red Blood Count 4.09 10^6/uL (4.20-5.40); White Blood Count 7.8 10^3/uL (4.0-11.0)
[2024-07-08 12:48] LABS: Alanine Aminotransferase 30 U/L (14-59); Albumin Globulin Ratio 1.4; Albumin Level 3.7 g/dL (3.4-5.0); Alkaline Phosphatase 214 U/L (46-116); Anion Gap 18.1; Aspartate Amino Transferase 31 U/L (15-37); BUN Creatinine Ratio 15.4; Bilirubin Total 0.9 mg/dL (0.2-1.0); Calcium 8.5 mg/dL (8.5-10.1); Carbon Dioxide 19.2 mmol/L (21.0-32.0); Chloride 101 mmol/L (98-107); Estimated GFR (African America 26 (>=60); Estimated GFR (Non-African Ame 21 (>=60); Globulin 2.6 g/dL; Glucose 127 mg/dL (74-106); Magnesium 1.1 mg/dL (1.8-2.4); Potassium 4.3 mmol/L (3.5-5.1); Sodium 134 mmol/L (136-145); Total Protein 6.3 g/dL (6.4-8.2)
[2024-07-09 15:41] LABS: C. Difficile PCR NEGATIVE (NEGATIVE)
== END 2024-07-08 11:51 | disposition home or self-care (01) ==
PROVIDERS: PCP Family Medicine; Visit Provider Nurse Practitioner Family
DX: R63.4 Abnormal weight loss (principal); R19.7 Diarrhea, unspecified
CPT/HCPCS: 36415; 80053; 83735; 85025; 87045; 87046; 87427; 87493

== ENCOUNTER 2024-07-11 10:31 | Outpatient (RCR) | payer MEDICARE, SELFPAY ==
[2024-07-11 10:46] VITALS: BP 137/66; PULSE 70; TEMP 36.6; O2SAT 99
[2024-07-11] MEDS: 0.9 % SODIUM CHLORIDE 1,000 ML 250 ML IV (11:28)
== END 2024-08-01 23:59 | disposition home or self-care (01) ==
LOC: INF 10:31
PROVIDERS: PCP Family Medicine; Visit Provider Nurse Practitioner Family
DX: E86.0 Dehydration (principal)
CPT/HCPCS: 96360; 96361

== ENCOUNTER 2024-07-13 07:30 | Outpatient (OUT) | payer MEDICARE, MEDICAID, SELFPAY ==
--- NOTE | 2024-07-13 07:35 | CA_ITS ---
Patient Name: SYLVIA HANNA MR#: [id number] : 1945 Exam Date: 07/13/2024 Ordering Doctor: DR ANISHA DINH M.D. ECHOCARDIOGRAM REPORT PROCEDURE: CA ECHO DOPPLER COMPLETE INDICATIONS: S/P heart transplant (2005), Syncope COMPARISON: None. DESCRIPTION: COMPLETE ECHOCARDIOGRAM Real-time transthoracic echocardiography with 2D, M-mode, spectral and color flow Doppler performed. QUALITY: Technical quality was good. LEFT VENTRICLE: Normal chamber size. Mild left ventricular hypertrophy. LV EF: Global left ventricular systolic function is hyperdynamic; visually estimated ejection fraction is 65 to 70%. No significant wall motion abnormalities. DIASTOLIC: Unable to be assessed. ATRIAL SEPTUM: Inadequately seen. LEFT ATRIUM: Enlarged consistent with heart transplant. RIGHT ATRIUM: Enlarged consistent with heart transplant. RIGHT VENTRICLE: Normal chamber size. Normal right ventricular systolic function. TRICUSPID VALVE: Normal mobility and thickness. No stenosis with mild regurgitation. Mild pulmonary hypertension. RVSP 39mmHg. MITRAL VALVE: Normal mobility and thickness. No evidence of mitral valve stenosis. There is no mitral annular calcification. Trivial mitral regurgitation. AORTIC VALVE: Normal trileaflet appearance. No visible sclerosis. Normal leaflet mobility. No evidence of aortic valve stenosis. Mild aortic regurgitation. AORTIC ROOT: Normal diameter and appearance. PULMONIC VALVE: Normal thickness and mobility. No stenosis. No regurgitation. PERICARDIUM: No evidence of pericardial effusion. IVC: Collapses with inspirations. Normal size. CONCLUSION: 1. Global left ventricular systolic function is hyperdynamic; visually estimated ejection fraction is 65 to 70% 2. The right ventricle is small in size with normal systolic function 3. Mild left ventricular hypertrophy 4. Mild tricuspid regurgitation 5. Mildly elevated right ventricular systolic pressure; RVSP 39 mmHg 6. Mild aortic valve regurgitation Adult Echocardiography Procedure Report Left Ventricle LVEDD (3.7 - 5.6 cm): 3.74 cm LVESD (2.2 - 4.0 cm): 2.42 cm LVIVS thickness (0.6 - 1.2 cm): 1.36 cm LVPW thickness (0.5 - 1.0 cm): 1.19 cm e': 0.10 m/s E - e': 14.25 LVOT Max Gradient: 3.39 mm[Hg] LVOT Area (cm2): 0.92 m/s Peak Velocity (LVOT): 0.92 m/s Mean Velocity (LVOT): 0.73 m/s LVOT Diameter 1.80 cm Left Ventricular Ejection Fraction: 77.13 % Left Atrium LA Volume Index (2D A2C): 60.34 ml/m2 Left Atrium Systolic Dimension: 3.88 cm Mitral Valve MV E to A Ratio: 3.40 Mitral Valve A-Wave Peak Velocity: 0.40 m/s Mitral Valve E-Wave Peak Velocity: 1.36 m/s Right Ventricle RV Internal Diastolic Dimension: 3.40 cm Aorta AO Root Diam: 3.15 cm Ascending Ao Diam: 2.63 cm Aortic Valve AoV Area (Peak Chris): 1.77 cm2, 1.77 cm2 AoV Area (VTI): 1.82 cm2, 1.82 cm2 Peak Velocity(Antegrade Flow): 1.32 m/s Peak Gradient(Antegrade Flow): 7.01 mm[Hg] Mean Velocity(Antegrade Flow): 0.99 m/s Mean Gradient(Antegrade Flow): 4.39 mm[Hg] Velocity Time Integral: 33.42 cm Tricuspid Valve Peak Velocity (Regurgitant Flow): 3.01 m/s, 2.52 m/s, 2.78 m/s, 2.80 m/s Pulmonic Valve Peak Velocity: 0.99 m/s Peak Gradient: 4.78 mm[Hg], 3.14 mm[Hg] Right Atrium Right Atrium Systolic Pressure: 38.55 ml, 38.55 ml Dictated by: Michael Nolan M.D. on 07/13/2024 at 12:44 Approved by: Michael Nolan M.D. on 07/13/2024 at 12:47
== END 2024-07-13 07:31 | disposition home or self-care (01) ==
LOC: CARD 07:30
PROVIDERS: PCP Family Medicine; Visit Provider Internal Medicine Interventional Cardiology
DX: R55 Syncope and collapse (principal); Z94.1 Heart transplant status
CPT/HCPCS: 93306

== ENCOUNTER 2024-07-24 13:20 | Outpatient (OUT) | payer MEDICARE, SELFPAY ==
--- OUTSIDE RECORDS SUMMARY | 2024-07-24 13:33 | XMS_ITS | CCD ---
Author Organization [facility] ion Partnership [facility] Care Team Providers Care [place] G[place] Name Role Phone Tao Rooney MD Primary Care Provider [phone] SCOT ROGERS Primary Care Physician Tao Rooney MD Primary Care Provider [phone] NICOLETTE RICE Attending UnavailARELIS Rivera Referring Unavailable TAO ROONEY Primary Care Unavailable Tao Rooney MD Primary Care Provider [phone] TAO HEBERT Primary Care Unavailable [...] Unavailable HOY ., DR BURGER Attending Unavailable LIMERICK, DR JAZLYN Marcelino Consulting Unavailable SUE, SCOT Consulting Unavailable SUE, SCOT Admitting Unavailable HOY [...] NON STAFF Attending Provider Unavailable NON STAFF Attending Unavailable NON STAFF Admitting Unavailable ANISHA DALY Attending Unavailable ANISHA DALY Attending Unavailable ANISHA DALY Attending Unavailable ANISHA DALY Attending Unavailable Allergies Allergy Classification Reported Allergen(s) Allergy Type Date of Onset Reaction(s) Facility (10 sources) Acetaminophen / oxyCODONE; Translations: [OXYCODONE-ACETAM INOPHEN] Drug Allergy 05-18-20 14 GI Upset [facility] Work Phone: (11 sources) Promethazine; Translations: [PROMETHAZINE HCL] Drug Allergy 10-11-20 05 Other: See Comments [facility] (3 sources) Levamisole; Translations: [Phenergan] Drug Allergy 04-07-20 13 [facility] Repository (1 source) Morphine Drug Allergy [facility] Rep[facility] (1 source) No Known Medication Allergies; Translations: [No Known Medication Allergies] Propensity to adverse reactions (disorder) [facility] Repository (2 sources) Promethazine; Translations: [promethazine] Drug Allergy 08-12-20 22 Loss of consciousness (finding) [facility] Medications Current Medications Medication Drug [...] 04-08-2023 Episodic Other aftercare (1 source) 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 I sent her tacrolimus order in the mail for her to have done at [facility] 1 week prior to seeing Dr. Daly for follow up on 09/14/2024. She verbalized understanding. [facility] 36on 07-21-2024 36 Regarding tacrolimus level drawn on 07/07/2024: MD Kaela Smith MA Did she have the echo? Her tacrolimus level is slightly high. I want a repeat in 2 months. *Dr. Daly, her echo was performed on 07/13/2024 and is scanned into social media manager. Will you review this and then I will call Sylvia. Thanks. Normal [facility] Office Visiton 07-01-2024 Follow-up visit [id number] Sylvia Herrera 1945 F Date Provider Department Center 07/01/2024 ANISHA JACOBS JULIAN iW[facility]son [facility] Family History Family history unknown: Yes Level of Service:92778 [place] OFFICE/OUTPATIENT ESTABLISHED MOD MDM 30 MIN Normal [facility] Activated partial thrombopla stin time (aPTT) in platelet poor plasma by coagulation aOrdered By: NON STAFF on 06-18-2024 aPTT Coag (PPP) [Time] 31.8 s 25.1-36.5 [facility] Comment on above: A hematocrit value g reater than 55% may lead to inaccurate results in coagulation testing. Patients having hematocrit values >55% require a special collection tube for coagulation studies. Please contact the laboratory at [phone] for redraw instructions. INR in Platelet poor plasma by Coagulation assayOrdered By: NON STAFF on 06-18-2024 INR Coag (PPP) [Relative time] 1.3 {INR} [facility] Comment on above: INR Therapeutic Rang [...] 3 - 4.5 Performed By: #### P TT, PT #### [facility] [address] [place] [address] Partial Thromboplastin Timeo n 07-18-2024 aPTT Coag (Bld) [Time] 31.8 s Normal 25.1-36.5 [facility] Comment on above: Result Comment: A he matocrit value greater than 55% may lead to inaccurate results in coagulation testing. Patients having hematocrit values >55% require a special collection tube for coagulation studies. Please contact the laboratory at [phone] for redraw instructions. PERFORMED BY: [facility] [address] [place] [address] PATHOLOGIST APPLICATIONS SUPPORT ANALYST ANDREIA ARRINGTON M.D. Performed By: #### P TT, PT #### [facility] [address] [place] [address] [facility] Prothrombin time (PT)Ordered By: NON STAFF on 06-18-2024 PT Coag (PPP) [Time] 14.4 s High 9.0-12.9 [facility] Comment on above: A hematocrit value g reater than 55% may lead to inaccurate results in coagulation testing. Patients having hematocrit values >55% require a special collection tube for coagulation studies. Please contact the laboratory at [phone] for redraw instructions. Result Comment: A he matocrit value greater than 55% may lead to inaccurate results in coagulation testing. Patients having hematocrit values >55% require a special collection tube for coagulation studies. Please contact the laboratory at [phone] for redraw instructions. Performed By: #### P TT, PT #### [facility] [address] [place] [id number] [facility] 36on 04-06-2024 36 I reviewed the [...] labs as ordered at last visit. Normal [facility] Telephoneon 04-06-2024 Telephone [id number] Sylvia Herrera 1945 F Date Provider Department Center 04/06/2024 ANISHA JACOBS JULIAN Hernandez Family History Family history unknown: Yes [facility] Orders Onlyon 03-18-2024 Orders Only [id number] Sylvia Herrera 1945 Provider Department Center 03/18/2024 Roman4-MITZY ISLAS GUS Hernandez Family History Family history unknown: Yes [facility] Office Visiton 02-03-2024 Follow-up visit [id number] Sylvia Herrera Erin 1945 Provider Department Center 02/03/2024 ANISHA JACOBS JULIAN Hernandez Family History Family history unknown: Yes Level of Service:25185 [place] OFFICE/OUTPATIENT ESTABLISHED MOD MDM 30 MIN [facility] Office Visiton 11-12-2023 Follow-up visit [id number] Sylvia Herrera Erin 1945 Provider Department Center 11/12/2023 ANISHA JACOBS JULIAN Hernandez Family History Family history unknown: Yes Level of Service:96982 RI OFFICE/OUTPATIENT ESTABLISHED MOD MDM 30-39 MIN [facility] 36on 10-26-2023 36 Her tacrolimus level from 10/16/2023 was 1.4. still very low. I believe she is currently taking tacrolimus (Prograf) 0.5 mg bid. I want her to increase to 1 mg bid and obtain another trough level in 2-3 weeks. [facility] Telephoneon 10-26-2023 Telephone [id number] Sylvia Herrera Erin 1945 Provider Department Center 10/26/2023 ANISHA JACOBS JULIAN Hernandez Family History Family history unknown: Yes [facility] Orders Onlyon 09-30-2023 Orders Only [id number] Sylvia Herrera Erin 1945 Provider Department Center 09/30/2023 Paresh8-KAELA TURNER JULIAN Hernandez Family History Family history unknown: Yes [facility] 36on 08-15-2023 36 Her Tacrolimus troug h level (taken on 08/06/2023, reported 08/14/2023) was low at 1.4. She is currently taking tacrolimus 0.5 mg once a day. Please have her increase it to 0.5 mg twice a day and have a repeat Tacrolimus trough level in 2 weeks. Her target level is around 5-10 ng/ml. Normal [facility] Telephoneon 08-15-2023 Telephone [id number] SharonSylvia 1945 F Date Provider Department Center 08/15/2023 ANISHA JACOBS Family History Family history unknown: Yes Normal [facility] Office Visiton 08-07-2023 Follow-up visit [id number] SharonSylvia 1945 F Date Provider Department Center 08/07/2023 ANISHA JACOBS Family History Family history unknown: Yes Level of Service:45211 RI OFFICE/OUTPATIENT ESTABLISHED MOD MDM 30-39 MIN Reason for Visit and Comments: Follow-up [508798] - 6 mo f/u no stress test or tacrolimus result as of 08/06 - does she plan on having stress test? Normal [facility] BMPon 04-08-2023 Creatinine [Mass/Vol] 1.3 mg/dL Normal 0.5-1.3 [facility] Comment on above: Performed By: #### 1 [id number], [id number], [id number] ####[facility] [address] [place] [address] Urea nitrogen [Mass/Vol] 36 mg/dL High 5-21 [facility] Comment on above: Performed By: #### 1 [id number], [id number], [id number] ####[facility] [address] [place] [address] Urea nitrogen/Creatinine [Mass ratio] 28 No Units High 10-20 [facility] Comment on above: Performed By: #### 1 [id number], [id number], [id number] ####[facility] [address] [place] [address] Anion gap [Moles/Vol] 11 mmol/L Normal 6-16 [facility] Comment on above: Performed By: #### 1 [id number], [id number], [id number] ####[facility] [address] [place] [address] Calcium [Mass/Vol] 8.6 mg/dL Low 8.9-11.1 [facility] Comment on above: Performed By: #### 1 [id number], [id number], [id number] ####[facility] [address] [place] [address] Chloride [Moles/Vol] 99 mmol/L Low 101-111 [facility] Comment on above: Performed By: #### 1 [id number], [id number], [id number] ####[facility] [address] [facility] [place] [address] CO2 [Moles/Vol] 25 mmol/L Normal 21-31 [facility] Comment on above: Performed By: #### 1 [id number], 7748476, [id number] ####[facility] [address] [facility] [place] [address] Glucose [Mass/Vol] 124 mg/dL Normal 55-199 [facility] Comment on above: Result Comment: If t his glucose result represents a fasting glucose, interpretation should refer to the following reference range: 55-99 mg/dL Performed By: #### 1 [id number], [id number], [id number] ####[facility] [address] [facility] [place] [address] Potassium [Moles/Vol] 4.1 mmol/L Normal 3.5-5.3 [facility] Comment on above: Performed By: #### 1 [id number], 9431415, [id number] ####[facility] [address] [facility] [place] [address] Sodium [Moles/Vol] 131 mmol/L Low 135-145 [facility] Comment on above: Performed By: #### 1 [id number], 4953566, [id number] ####[facility] [address] [place] [address] CHEMISTRYOrdered By: SYSTEM SYSTEM on 04-08-2023 Anion gap [Moles/Vol] 11 mmol/L Normal 6 - 16 mEq/L [facility] Calcium [Mass/Vol] 8.6 mg/dL Low 8.9 - 11. 1 mg/dL [facility] Chloride [Moles/Vol] 99 mmol/L Low 101 - 1 11 mmol/L [facility] CO2 [Moles/Vol] 25 mmol/L Normal 21 - 31 mmol/L [facility] Remisol Creatinine [Mass/Vol] 1.3 mg/dL Normal 0.5 - 1.3 mg/dL [facility] Remisol GFR/1.73 sq M.predicted among non-blacks MDRD (S/P/Bld) [Vol rate/Area] 42 mL/min/1.73 m2 Low >=59mL/min/ 1.73 m2 [facility] Chem S Glucose [Mass/Vol] 124 mg/dL Normal 55 - 199 mg/dL [facility] Potassium [Moles/Vol] 4.1 mmol/L Normal 3.5 - 5.3 mmol/L [facility] Remisol Sodium [Moles/Vol] 131 mmol/L Low 135 - 145 mmol/L [facility] Remisol Troponin I.cardiac [Mass/Vol] 11.10 pg/mL Normal 10.10 - 27.10 pg/mL [facility] Remisol Urea nitrogen [Mass/Vol] 36 mg/dL High 5 - 21 mg/dL [facility] Remisol Urea nitrogen/Creatinine [Mass ratio] 28 mg/mg High 10 - 20 [facility] Remisol Troponin I.cardiac [Mass/Vol] 9.70 pg/mL Low 10.10 - 27.10 pg/mL [facility] Remisol Consent for Treatmenton Consent for Treatment [id number]:12 7 Normal [facility] Discharge Instructionson Discharge Instructions [id number]#[id number]:127 Normal [facility] ED Clinical Summaryon 2022 ED Clinical Summary (Inserted Image. Tram ble to display) [address] [address] ED Clinical Summary Person Information Name: SYLVIA HERRERA Herb/[facility] Age: 77 Years : 1945 Sex: Female Language: Grenadian PCP: SCOT ROGERS CNP Marital Status: Single [...] 04/08/2023 08:56:01 04/08/2023 08:56:01 04/08/2023 08:56:01 ADDRESS: [address] [place] [phone] PHYS DOC NOTES: MEDICAL INFORMATION: Prescriptions Given: [...] With: Address: When: SCOT ROGERS [address] [facility] [place] [address] [phone] Business (1) In 3 days DIAGNOSIS: Chest pain; Hyponatremia Normal [facility] ED Note-Physicianon 04-08-20 ED Note-Physician [...] and Complexity of Problems Differential Diagnosis: [] [facility] Data External documents reviewed: N/A My [...] 6 Hr. (more content not included)... Normal [facility] Comment on above: Result Comment: [...] gland problems. ? Metabolic conditions, such as Plains's disease or syndrome of inappropriate antidiuresis (SIAD). [...] Follow these instructions at home: ? Take ebib-cek-ugkkztu and prescription medicines only as told by [...] provider. Document Revised: 05/29/2022 Document Reviewed: 05/29/2022 [employer] Patient Education ? 2022 [employer] Pulmonary Medicine Nonspecific Chest Pain, Adult [...] health care (more content not included)... Normal [facility] ED Patient Summaryon 023 ED Patient Summary (Inserted Image. Tram ble to display) [place] [id number] Patient Discharge Instructions Person Information Name: SYLVIA HERRERA Age: 77 Years Arrival Date: 04/07/2023 21:18:46 Discharge Diagnosis: Chest pain; Hyponatremia Primary Care Physician: SCOT ROGERS CNP Provider Information Primary Provider: Richard Ca DO Advanced Mold Presser:None The exam and treatment you received in the Emergency Department were for an urgent problem and are not intended as complete care. It is important that you follow up with a doctor, nurse practitioner, or physician?s contact center assistant for ongoing care. If your symptoms become worse or you do not improve as expected and you are unable to reach your usual health care provider, you should return to the Emergency Department. We are available 24 hours a day. SVETLANASYLVIA BELL has been given the following list of patient education materials, prescriptions and follow-up instructions: Follow-up Instructions: With: Address: When: SCOT ROGERS [address] [place] [address] [phone] Business (1) In 3 days In the event that this physician does not participate in your insurance network, please consult with your insurance company to find a nearby participating provider. Patient Education Materials: Hyponatremia; Nonspecific Chest Pain, Adult A MESSAGE TO ALL PATIENTS REGARDING OPIOIDS PRESCRIPTION OPIOIDS: WHAT YOU NEED TO KNOW Prescription opioids can be used to help relieve rvtqpgqd-pm-ylltjx pain and are often prescribed following a [...] be struggling with addiction, tell your health transitions rn care coordinator and ask for guidance or call [facility] National Helpline at [phone]. v Source: [place] Departmen (more content not included)... Normal [facility] EMS Documentationon 04-08-20 EMS Documentation Please click on link to see report [id number]+ jveFZckTHLHqBEwISEwObX0KKe 0CCFuz8BnDRy7USvhUFI8KbQtB QovSCBb NTD6KDRxYYczMn2EDVU7ZsO3Rf 8PzX8eSQSdbkXzGZSQO81mZLne RrP8Be3LHKZ3AMd7Eu1+ICAg ICAgICAgICAgICAgICAgICAgIC AgICAgICAgICAgICAgICAgICAg ICAgICAgICAgICAgICAgICAg ICAgICAgICAgICAgICAgICAgIC MCQpAmQB4ibw7KPHy1vvKdNXf2 SXX2NQdiDDHqHDEdDXIyBHTb CYLdSB5MExYaMHKdQBM9CZdkVA IyYWJoia1FNIJbSOAeTBJ7AQOk MDAwMCBuDQowMDAwMDAxODM3 MDKzWUJaWK0XTaMdYUEkZRK3Bm nlPUMpTUPnmx0HCCTgFZEjTlTj OCAwMDAwMCBuDQowMDAwMDAy OuxwRRVpQVGjKJ2OVtLoDOJhGO RtQVXfCGBhCEKhkm8LFJZrJYAe LqV1PdLiBGWbNCYcZLsmPSWw YKZmDAIkMVRdLJVcUV2XUkDvLP GvNWI6DGtaNSSpIKLgcf6YBCQs KMCoSdr5PLPePSFcOKMsAToq NPGwUMUaDvH5INRvJRVrGT7BCf UnYQRpTJP1FMIqPMHzSDCdgd9H JDKjYDZeKHR9CQQhKJJqQFZw GWvcFSOnNFT7ZsKwJSJjCDBmXO 7UYeOfYTAoVZV2DmjdQPZyZXWo pm0BYGPjDVScHTy7MOGzCTLg RRZzONpeTVHvVDK2YsL4GEPuII XyED0GRoFhDDTcZYK2LpsaLJKf JORyma5TCHYiQVJeSAffSEFn ONUtPIScGLdxXOYoLGD9PHC7IW StGPRjLB5QIhVyYNNeRRQ2Zauh QHOuMRElkf2BCWCuJEGzFvw5 IyNpWALoHGXgMPsdYGEzWHF0GM S6LAWzNBRfBA1LIgMjSKJqMAmu VDIcGZWwGYBnau1YGKXwTLKt OTkyMiAwMDAwMCBuDQowMDAwMD D6SFZ5LUAaLVVtHM9QKkHtIQwl GVDHZyp7Gk0JWARlXFMONBDE P2OqKFTRXchSIEI6KXB2YJz1IW UpVRasOzK4Rld3MyTBDNF1Uon8 RPnNEVW5LSs6HHTKB0Y4BJfA NTZDRTA+BNifWGLvdkU2CdS2Yi vhSi0fjGC7TOYvCinrM7r1ITGf FzucK168dsBhMWjYLIjDJekP OdSoYaP8fJDLYGUXQ9W9R73kM8 8dHU4UTCahC5c2HdxALBQ3KQhI bTwBVbBzH08wVYvfAHZrJ0Jh CxvytGbdKQQ8N4UucPU6V0ijs3 7mUCVKEIsLg3hcLXI6K06OUxhH EelJjnTTD7a0xPYCbPH3Irus M1teOnZhBAYVBGBnFmDwXqpRR6 GDB2nORt0uDb4+ICAgICAgICAg ICAgICAgICAgICAgICAgICAg ICAgICAgICAgICAgICAgICAgIC AgICAgICAgICAgICAgICAgICAg ICAgICAgICAgICAgICAgICAg ICAgICAgICAgICAgICAgICAgIC AgICAgICAgICAgICAgICAgICAg ICAgICAgICAgICAgICAgICAg ICAgICAgICAgICAgICAgICAgIC AgICAgICAgICAgICAgICAgICAg ICAgICAgICAgICAgICAgICAg ICAgICAgICAgICAgICAgICAgIC AgICAgICAgICAgICAgICAgICAg ICAgICAgICAgICAgICAgICAg ICAgICAgICAgICAgICAgICAgIC AgICAgICAgICAgICAgICAgICAg ICAgICAgICAgICAgICAgICAg ICAgICAgICAgICAgICAgICAgIC AgICAgICAgICAgICAgICAgICAg ICAgICAgICAgICAgICAgICAg ICAgICAgICAgICAgICAgICAgIC AgICAgICAgICAgICAgICAgICAg ICAgICAgICAgICAgICAgICAg TKIMHbA2FNV2fVFyYi4EDP8JDK KID1WKNz6YLFKyOJ8srh6VSYbW D55gnJGeMSJoVXChIKJEGq3Y yMWsMTV2mQ5kXDo4QRAzNaclFx w5VZ5CW790rLbxjpCbEVQjDJFZ Ko1JZTbtWD7fDRLbNPYmDp0c OSshGOTfJKAuDkPqAQYWA7X4bR GrR2CsgLHja9kUQo4PSwMpCW2f ug0MXGi2ASOdi3ViJAl7TUym HltklHSzGU3SrPU9IREtD34kSV ovZCTlF9DbCBSgQRjfEyU3Ace+ Qj1Ti8CoDCFfJOk5dNGgXMTd YGDLYFBgYLjCAyLhQAEKUxiwAr Q4ZiMfNMWx4KYdBRYc52EGYnWy CjKxTHjvLaKotLPL6QptSoVX CKqw6ApLRkBFVsYWzjI5BZkrGI DXWnsNVFp0BmYvLhqX6AnYbmYc 7Z1NBFMBRfrFTbEnXDG5vsZs oM7SMH4ic6AbPCzRPxknXJPnDn cRPdp4Au4Bi559UX23qgCyQrMr XIHMNNqhBHAldMIPs8pfQaBx VZE6AYKnLevbSKhkKIGiZR81HJ NaTCBSCl6JWZRklCCeJUVbBLrY L2aSPymiR3KjQHtIQ6erDyQ4 IDggMCBSCj4+Cj4+Xu3YxBPoAD 8WLLfaPr0+ZFopujQrRrjNWj5V CYShTM0egt2IPFgFG0DMh1la IzVeRVO7BDGeSrwrYXarSzqsuX RyGT3XxEA4NZAxX87aFYkpSTEo A8LlMOu8Bb4YAEMsjCLiAKHx DRsKN9oCIklsO8QaCRxIR0ibZj Q8THT1TPBxBat+Pgo+XwnpO2Kc uJtcIAVwOn3krOnbWOqdNMZz DG5maiJpoDu+Ap1Yy4MzHJSfXK i9jUXA2LEl1KNiZPJfMGI5OSLs oxKBGBkm8GmZyMUfReDskDDw D0uaSFMk60mYWGWhFbmJc4knYr Nk1BgRKK+HD5OLxbLkMzKyay6K NXihmvVfaHSzAI5UYyTxPE4z mn8VLWj9JXTig9WgLEu7SXnwDr 2gL62qgr6vmFphU4EsZPi+Pg0K BY7bb7CuGFpFOrOtHGNpr7Ti KQs0TCavRu5yX65mpg4eeCwxZ1 EgMQovTEMgMAovTEogMAovTFcg ARgaQWmgKXjaZ8LbgAW1JEqr W9CmMTi+Vr1GRQ4na3MfSVkPSc BvUAXvr7HkKMe0IMuuRu1jW25l kp2hzOetC4FcLL0jAmFbPvry TEMgMAovTEogMAovTFcgMQovTU qbALoxL4KngNI3XOsnD2QxWE7f MzMzMwo+Fz1POJ9xw1KrAVaQ LhExICKkr3TtGQt7SBcsXw2kU2 3rqi5zvPdhP3MuRY3iLHZdNGh+ Ou5HWU7hx4TmPZsQVrHhMBOj s3LnGJe1CEmhCz3uH89ugd9ukS zeC9JkLW7gIQZ7PQttFRKrHUgc TEogMAovTFcgMQovTUwgNAov Z3UbvIE3SUfjO5SgYY0wYYA5MR o+Hh7GBC0aa8VlSVcFYaW5HQFl w9NiQMp8PSyoKTC5bob3WIyt Kgr8ERRkUTMpAL93ODTwKIn9Al 5UB2MbvCMexz8YeJOhMTXLJ5Pa WWDldtsgVZbDU0SbxV7rC5Kb F2NzU9KymnwtRYGZOmldK63ucu ErOQyxSWH2JJUiWWJ3VW1EE1I7 yCXsHFEhvSY8YOq2deQzCHwt WxMdQ7Jjd77zNTsZG3AoPUudDg o7KaSvCnf6MvAiLhq1H86EA3Hn GBjsHkl1JiYqBlh6TeArNka0 E63JI4GvgQYtmaOoABUtXVypNc HzL3Snw20BwYHtHGDCZ67sAKk+ XxaeJ6hiLOjdR2Z3iWJyNgy+ LmpkUInwSCZqAUL3gMFwqjo+Pg 2MXE1bx6NiLHrFPiN6DBFpt5Bo HQf4ULkiUNT8yoi9DNynTzu9 HROoACPcBH65QOJoKNr9Ho4EK7 IyfDUasu9JkLKuORLEM1EtRMSc mujlTOrSH0XztN1pX2PqY5Oi H4ZniodlQLDCXarzJ99iozWoMY x3GYG5WiF3OPT0Fs80Cq3VF8D0 qSPhKRQpwUO6QZl6sdUwKKkq TiYbK5Htd00uYGuNX6HkrI2dyd WxPL90IMkrFC1iTDtoSNzhNQMu Sa3HdfXzOQTkLpMjSYPwNQPv Ny7FgL1toBvzgxY0oSHcBjohDw GfD9Qov49sIGz4CEnzTuWbUkQs TKJ1NVSkDYI0NCVdBIY4LKxk VoRfLhAeJFR7GAAtREQ5GOYsCA A9WPofXT8pZWtnIYlcSZYgJg8B iU8ngNevriP5yEQhMwwvLtEg Cj4+Cyg1Az1HWNCkIE96RshzIZ 69JzggDR25GiahIu1GYMDpJX82 PuEkAA79NcFkTW21IyYcPb3A o95jjC2rTzRuBD2NP2T9hoU2mM 1tDVhiLUMxSj0QQAGOXs6mJz4+ Rg8OsCIhtN8sVVkzASAeTq5+ Sq1HsELvYF3OXOT6ZWSzDx7+DQ lsqpVkGbjMAm2APDAxHQXmGhbD Hjf6Pu5CKUSlFq7hoSQlXNiH ZR4JV1IdJ97uGSsQJ3Lsm1Mboa JgvjQHg084usSzKVtqCJAJKWft UX2oz6MndcslC3dyIP78vAU7 WNqSS3W2RrY5kGWcF7G1pSStEp 1Th1EtrSAcHTSpWHmzIYGPNf4M sQOiTV1Tk724Ad9+DQplbmRv PgbJYj5MYSlcQIBfRwlCZzg1Hf 5WSWNvEj7jqFJhZKmBTX0UC8Fv K53dHWsJN7KNOPO9x2HfeDzj Zy3rPXeGW58yEIVgvH2sYJlECP KqjYh6gMtSM0TxU7nvkHV2WOrU ZG9i (more content not included)... Normal [facility] EMS Documentation Please click on link to see report Normal [facility] Comment on above: Result Comment: Miss ing Attachment - attachment exceeds size limitation [id number] Can be viewed in source system EMS Documentation [id number]#[id number]:127 [facility] Monitor Recordon 04-08-2023 Monitor Record [id number]#[id number]:127 [facility] Progress Note-Nurseon 2022 Progress Note-Nurse Pt. requesting food, Dr. Ca aware. Pt. given food per verbal order from Dr. Ca. Normal [facility] Troponin 0 Hr.on 04-08-2023 Troponin I.cardiac [Mass/Vol] 9.20 pg/mL Low 10.10-27.10 [facility] Comment on above: Result Comment: The 95% CI (Confidence Interval) PPV (Positive Predictive Value) for myocardial infarction in females is 38 pg/mL, in males 51 pg/mL. The results should be used in conjunction with clinical conditions of myocardial infarction. (Access High Sensitivity Troponin I Instructions For Use, [place], July 2018) Performed By: #### 2 [id number], [id number], [id number], [id number], [id number] ####[facility] [id number] [place] [address] Troponin 3 Hr.on 04-08-2023 Troponin I.cardiac [Mass/Vol] 9.70 pg/mL Low 10.10-27.10 [facility] Comment on above: Result Comment: The 95% CI (Confidence Interval) PPV (Positive Predictive Value) for myocardial infarction in females is 38 pg/mL, in males 51 pg/mL. The results should be used in conjunction with clinical conditions of myocardial infarction. (Access High Sensitivity Troponin I Instructions For Use, [employer], July 2018) Performed By: #### 1 [id number] ####[facility] [id number] [place] [address] Troponin 6 Hr.on 04-08-2023 Troponin I.cardiac [Mass/Vol] 11.10 pg/mL Normal 10.10-27.10 [facility] Comment on above: Result Comment: The 95% CI (Confidence Interval) PPV (Positive Predictive Value) for myocardial infarction in females is 38 pg/mL, in males 51 pg/mL. The results should be used in conjunction with clinical conditions of myocardial infarction. ([employer] High Sensitivity Troponin I Instructions For Use, [facility], July 2018) Performed By: #### 1 [id number] ####[facility] [id number] [place] [address] XR Chest Single Viewon 04-08 XR Chest [...] mGy = na DAP = na Normal [facility] eGFRon 04-08-2023 GFR/1.73 sq M.predicted among non-blacks MDRD (S/P/Bld) [Vol rate/Area] 42 mL/min/1.73 m2 Low >=59 [facility] Comment on above: Order Comment: Order added by Discern Expert. Result Comment: Staff Counselor brennan kidney disease could be indicated at eGFR's of less than 60 mL/min/1.73m2. Kidney failure is indicated at less than 15 mL/min/1.73m2. Performed By: #### 1 [id number], 8431646, [id number] ####[facility] [address] [place] [address] Auto Diffon 04-07-2023 Basophils/100 WBC (Bld) 0.4 % Normal 0.0-2.0 [facility] Comment on above: Order Comment: Order Added by Discern Expert. Performed By: #### 2 362429, 77043273, 0327711, 3695670, 46619791, 16181551 ####[address] [place] [address] Basophils/Leukocytes Auto (Bld) [Pure # fraction] 0.0 E9/L Normal 0.0-0.2 [facility] Comment on above: Order Comment: Order Added by Discern Expert. Performed By: #### 2 505795, 23566530, 0151327, 4059483, 50613010, 36696699 ####[address] [place] [address] Eosinophils/100 WBC (Bld) 3.0 % Normal 0.0-8.0 [facility] Comment on above: Order Comment: Order Added by Discern Expert. Performed By: #### 2 691713, 04788288, 0584438, 2669631, 69345700, 87350912 ####[address] [address] Eosinophils/Leukocyt es Auto (Bld) [Pure # fraction] 0.2 E9/L Normal 0.0-0.5 [facility] Comment on above: Order Comment: Order Added by Discern Expert. Performed By: #### 2 553452, 61712884, 6111177, 5072006, 21611589, 22348788 ####[address] [place] [address] Lymphocytes/100 WBC (Bld) 15.4 % Normal 14.0-50.0 [facility] Comment on above: Order Comment: Order Added by Discern Expert. Performed By: #### 2 361127, 56241581, 8105259, 8560682, 26460420, 62926054 ####[address] [address] Lymphocytes/Leukocyt es Auto (Bld) [Pure # fraction] 1.1 E9/L Normal 1.0-4.0 [facility] Comment on above: Order Comment: Order Added by Discern Expert. Performed By: #### 2 194432, 96034280, 9006723, 5037084, 39242615, 37147009 ####[address] [address] Monocytes/100 WBC (Bld) 12.8 % Normal 4.0-14.0 [facility] Comment on above: Order Comment: Order Added by Discern Expert. Performed By: #### 2 213900, 91408326, 5645829, 3129982, 07819790, 92827914 ####[address] [address] Monocytes/Leukocytes Auto (Bld) [Pure # fraction] 0.9 E9/L Normal 0.2-1.0 [facility] Comment on above: Order Comment: Order Added by Discern Expert. Performed By: #### 2 564397, 99824351, 8534932, 8481483, 45437552, 53523084 ####[address] [address] Neutrophils/100 WBC (Bld) 68.4 % Normal 36.0-75.0 [facility] Comment on above: Order Comment: Order Added by Discern Expert. Performed By: #### 2 812403, 62719849, 8937650, 9386403, 34021285, 85285155 ####[address] [address] Neutrophils/Leukocyt es Auto (Bld) [Pure # fraction] 5.0 E9/L Normal 2.0-7.5 [facility] Comment on above: Order Comment: Order Added by Discern Expert. Performed By: #### 2 373573, 69718115, 1233921, 3727333, 43283312, 11887920 ####[facility] [address] [place] [address] BMPon 04-07-2023 Creatinine [Mass/Vol] 1.5 mg/dL High 0.5-1.3 [facility] Comment on above: Performed By: #### 2 410063, 23431853, 3365406, 1446484, 45451966, 75825531 ####[facility] [address] [place] [address] Urea nitrogen [Mass/Vol] 40 mg/dL High 5-21 [facility] Comment on above: Performed By: #### 2 184692, 82030115, 2722915, 4196531, 10403061, 59138690 ####[facility] [address] [place] [address] Urea nitrogen/Creatinine [Mass ratio] 27 No Units High 10-20 [facility] Comment on above: Performed By: #### 2 675360, 04860182, 6630094, 1944838, 04230478, 60931571 ####[facility] [address] [place] [address] Anion gap [Moles/Vol] 11 mmol/L Normal 6-16 [facility] Comment on above: Performed By: #### 2 730059, 39070897, 3417516, 1322017, 17059630, 24782404 ####[facility] [address] [place] [address] Calcium [Mass/Vol] 8.6 mg/dL Low 8.9-11.1 [facility] Comment on above: Performed By: #### 2 545776, 46466059, 3634762, 1570017, 40970024, 70383033 ####[facility] [address] [place] [address] Chloride [Moles/Vol] 96 mmol/L Low 101-111 [facility] Comment on above: Performed By: #### 2 529902, 51029608, 7719124, 5145878, 91831609, 42501928 ####[facility] [address] [place] [address] CO2 [Moles/Vol] 24 mmol/L Normal 21-31 [facility] Comment on above: Performed By: #### 2 682071, 21801627, 7228555, 0534004, 04469446, 52359615 ####[facility] [address] [place] [address] Glucose [Mass/Vol] 139 mg/dL Normal 55-199 [facility] Comment on above: Result Comment: If t his glucose result represents a fasting glucose, interpretation should refer to the following reference range: 55-99 mg/dL Performed By: #### 2 022926, 54968152, 0691865, 0766700, 17730472, 17571831 ####[facility] [address] [place] [address] Potassium [Moles/Vol] 4.4 mmol/L Normal 3.5-5.3 [facility] Comment on above: Performed By: #### 2 625385, 24805484, 7873536, 9307390, 41046886, 90299309 ####[facility] [address] [place] [address] Sodium [Moles/Vol] 127 mmol/L Low 135-145 [facility] Comment on above: Performed By: #### 2 777438, 09392934, 9718113, 3842828, 83110741, 56732371 ####[facility] [address] [place] [address] CBC w/ Auto Diffon 3 Erythrocyte distribution width (RBC) [Ratio] 13.0 % Normal 10.9-14.2 [facility] Comment on above: Performed By: #### 2 537461, 31995548, 1562055, 7393295, 30259075, 47275350 ####[facility] [address] [place] [address] Hematocrit (Bld) [Volume fraction] 38.4 % Normal 34.0-46.0 [facility] Comment on above: Performed By: #### 2 875707, 40079419, 0516549, 8988879, 17480003, 05036412 ####[address] [address] Hemoglobin (Bld) [Mass/Vol] 12.6 g/dL Normal 12.0-16.0 [facility] Comment on above: Performed By: #### 2 424691, 70297814, 7983601, 4407115, 45242194, 44480445 ####[address] [address] MCH (RBC) [Entitic mass] 27.9 pg Normal 27.0-34.0 [facility] Comment on above: Performed By: #### 2 204105, 81695645, 1999840, 1482639, 67879845, 35401310 ####[address] [address] MCHC (RBC) [Mass/Vol] 32.7 g/dL Normal 31.4-36.0 [facility] Comment on above: Performed By: #### 2 600823, 03034846, 1200517, 8070240, 10061585, 27630480 ####[address] [address] MCV (RBC) [Entitic vol] 85.3 fL Normal 80.0-100.0 [facility] Comment on above: Performed By: #### 2 494747, 53185226, 2741080, 8143256, 93954061, 44584448 ####[facility] [address] [place] [address] Platelet mean volume (Bld) [Entitic vol] 7.3 fL Normal 6.4-10.8 [facility] Comment on above: Performed By: #### 2 928330, 33417804, 4855879, 2661712, 64494336, 10841190 ####[facility] [address] [place] [address] Platelets (Bld) [#/Vol] 167.0 E9/L Normal 150.0-500.0 [facility] Comment on above: Performed By: #### 2 545050, 81134419, 9596359, 1849640, 45117616, 29244933 ####[facility] [address] [place] [address] RBC (Bld) [#/Vol] 4.5 E12/L Normal 4.3-5.9 [facility] Comment on above: Performed By: #### 2 311057, 11654421, 6423671, 9772161, 24941143, 89665122 ####[facility] [address] [place] [address] WBC corrected for nucl RBC Auto (Bld) [#/Vol] 7.3 E9/L Normal 4.0-11.0 [facility] Comment on above: Performed By: #### 2 890864, 63395024, 5258314, 8565068, 50582778, 56455585 ####[facility] [address] [place] [address] CHEMISTRYOrdered By: SYSTEM SYSTEM on 04-07-2023 Anion [...] 35 mL/min/1.73 m2 Low >=59mL/min/ 1.73 m2 FT Chem S Glucose [Mass/Vol] 139 [...] Coag (PPP) [Time] 27.1 second(s) Normal 25.1-36.5 [facility] Comment on above: Result Comment: Para meter 15 days - 4 weeks 1 - 5 months 6 - 11 months 1 - 5 years 6 - 10 years 11 - 17 years PTT Mean: 35.4 (27.6-45.6) Mean: 33.5 (24.8-40.7) Mean: 32.4 (25.1-40.7) Mean: 31.6 (24.0-39.2) Mean: 31.6 (26.9-38.7) Mean: 31.0 (24.6-38.4) Pediatric Reference ranges were obtained from a study by roland Miller al. prepared from 1437 samples obtained at 7 different centers using the same coagulation reagent and instrumentation as [facility]. Currently there are no coagulation studies available worldwide for children to 14 days, and no normal ranges. Heparin therapeutic range (represented by Anti-Factor Xa activity of 0.2 - 0.4 U/mL) corresponds to PTT of 56.6 - 109.0 sec. Performed By: #### 2 855888, 55686501, 0569164, 9093723, 35958306, 16988280 ####[facility] [address] [place] [address] INR Coag (PPP) [Relative time] 1.2 {INR} Invalid Interpretation Code [facility] Comment on above: Result Comment: INR results are specifically intended to assess patients stabilized on long-term Anticoagulation therapy suggested INR?s ?Less Intensive Anticoagulation? 2.0 ? 3.0 Conventional Range 3.0 ? 4.5 Performed By: #### 2 552541, 67145887, 2245777, 6270947, 15619453, 67717185 ####[facility] [address] [place] [address] PT Coag (PPP) [Time] 12.9 second(s) High 9.4-12.5 [facility] Comment on above: Result Comment: [...] the same coagulation reagent and instrumentation as [facility]. Currently there are no coagulation studies available worldwide for children to 14 days, and no normal ranges. Performed By: #### 2 285693, 89112448, 6166535, 8932885, 59707162, 20074822 ####[facility] [address] [place] [address] Pre-Arrival Noteon 3 Pre-Arrival Note Pre-Arrival Summary Name: , YAZMIN Current Date: 04/07/2023 21:19:11 EDT Gender: Female Date of : Age: 77 Pre-Arrival Type: EMS ETA: 04/07/2023 21:15:00 EDT Primary Care Physician: Presenting Problem: chest pain Pre-Arrival User: Natalia Fischer RN Referring Source: Location: Completion Date/Time: 04/07/2023 21:06:00 [facility] Emergency Department Pre-Hospital Report Form _ Vital Signs: Pre-Hospital Report: Treatment in Route: Response to Treatment: Misc. Issues: Normal [facility] eGFRon 04-07-2023 GFR/1.73 sq M.predicted among non-blacks MDRD (S/P/Bld) [Vol rate/Area] 35 mL/min/1.73 m2 Low >=59 [facility] Comment on above: Order Comment: Order added by Discern Expert. Result Comment: Staff Counselor brennan kidney disease could be indicated at eGFR's of less than 60 mL/min/1.73m2. Kidney failure is indicated at less than 15 mL/min/1.73m2. Performed By: #### 2 252587, 76180015, 1156275, 2182723, 88324333, 05726126 ####[facility] [address] [place] [address] INFLUENZA A AND B AGon 03-05 INFLUANEGH SEE BELOW Normal [facility] Comment on above: Result Comment: Nega tive for Flu A protein angiten. Infection due to Flu A cannot be ruled out. Flu A angiten in the sample may be below the detection limit of the test. Performed By: #### E RUR #### [facility] [address] [place] [address] Dr. Hardeep Rivera INFLUBNEGH SEE BELOW Normal [facility] Comment on above: Result Comment: Nega tive for Flu B protein antigen. Infection due to Flu B cannot be ruled out. Flu B antigen in the sample may be below the detection limit of the test. Performed By: #### E RUR #### [facility] [address] [place] [address] Dr. Hardeep Rivera INFLUENZA A AG Negative Normal NEGATIVE SEE COMMENT [facility] Comment on above: Performed By: #### E RUR #### [facility] [address] [place] [address] Dr. Hardeep Rivera INFLUENZA B AG Negative Normal NEGATIVE SEE COMMENT [facility] Comment on above: Performed By: #### E RUR #### [facility] [address] [place] [address] Dr. Hardeep Rivera SYMPTOMATIC COVID-19 ANTIGEN on 03-05-2023 EUA Statement SEE BELOW Normal [facility] Comment on above: Result Comment: This [...] is revoked sooner. Performed By: #### C IMANIS ####[facility] [address] [address]Dr. Hardeep Rivera SARS-CoV-2 (COVID-19) RNA ULICES+probe Ql (Unsp spec) Positive Abnormal NEGATIVE [facility] Comment on above: Performed By: #### C IMANIS ####[facility] [address] [address]DrLaura Rivera FK506 (TACROLIMUS) WHOLE BLO ODon 02-28-2023 Tacrolimus (FK506), Blood 5.8 ng/mL Normal 2.0-20.0 [facility] Comment on above: Result Comment: Trou gh (immediately following transplant) 15.0 . Trough (steady state, 2 weeks or more after transplant): 3.0 - 8.0 . Performed by LC-MS/MS technology. Performed By: #### F K506T ####[facility] [address] [address]Dr. Hardeep Rivera CBC AUTO DIFFon 02-14-2023 BASO # 0.0 103/ul Normal 0.0-0.1 [facility] Comment on above: Performed By: #### RANDALL OLSON #### [facility] [address] [place] [address] Dr. Hardeep Rivera Basophils/100 WBC (Bld) 0.5 % Normal 0.2-2.0 [facility] Comment on above: Performed By: #### RANDALL OLSON #### [facility] [address] [place] [address] Dr. Hardeep Rivera EO # 0.2 103/ul Normal 0.0-0.7 [facility] Comment on above: Performed By: #### RANDALL OLSON #### [facility] [address] [place] [address] Dr. Hardeep Rivera Eosinophils/100 WBC (Bld) 3.5 % Normal 0.9-7.0 [facility] Comment on above: Performed By: #### HARI OLSONRO #### [facility] [address] [place] [address] Dr. Hardeep Rivera Erythrocyte distribution width (RBC) [Ratio] 12.3 % Normal 11.0-15.0 [facility] Comment on above: Performed By: #### HARI OLSONRO #### [facility] [address] [place] [address] Dr. Hardeep Rivera Hematocrit (Bld) [Volume fraction] 38.7 % Normal 36.0-48.0 [facility] Comment on above: Performed By: #### HARI OLSONRO #### [facility] [address] [place] [address] Dr. Hardeep Rivera Hemoglobin (Bld) [Mass/Vol] 12.6 g/dL Normal 12.0-16.0 [facility] Comment on above: Performed By: #### HARI OLSONRO #### [facility] [address] [place] [address] Dr. Hardeep Rivera IG # 0.03 10e3/ul Normal 0.00-0.03 [facility] Comment on above: Performed By: #### HARI OLSONRO #### [facility] [address] [place] [address] Dr. Hardeep Rivera IG % 0.5 % Normal 0.0-0.5 [facility] Comment on above: Performed By: #### HARI OLSONRO #### [facility] [address] [place] [address] Dr. Hardeep Rivera LYMPH # 0.8 103/ul Critically low 1.2-3.8 [facility] Comment on above: Performed By: #### HARI OLSONRO #### [facility] [address] [place] [address] Dr. Hardeep Rivera Lymphocytes/100 WBC (Bld) 13.2 % Critically low 20.5-60.0 [facility] Comment on above: Performed By: #### HARI OLSONRO #### [facility] [address] [place] [address] Dr. Hardeep Rivera MANUAL DIFF REQ NO Normal [facility] Comment on above: Performed By: #### Deedee PINON UMICRO #### [facility] [address] [place] [address] Dr. Hardeep Rivera MCH (RBC) [Entitic mass] 28.3 pg Normal 26.7-34.0 [facility] Comment on above: Performed By: #### Deedee PINON UMICRO #### [facility] [address] [place] [address] Dr. Hardeep Rivera MCHC (RBC) [Mass/Vol] 32.6 g/dL Normal 29.9-35.2 [facility] Comment on above: Performed By: #### Deedee PINON UMICRO #### [facility] [address] [place] [address] Dr. Hardeep Rivera MCV (RBC) [Entitic vol] 87.0 fL Normal 81.0-99.0 [facility] Comment on above: Performed By: #### Deedee PINON UMICRO #### [facility] [address] [place] [address] Dr. Hardeep Rivera MONO # 0.8 103/ul Normal 0.3-0.8 [facility] Comment on above: Performed By: #### Deedee PINON UMICRO #### [facility] [address] [place] [address] Dr. Hardeep Rivera Monocytes/100 WBC (Bld) 12.9 % Critically high 1.7-12.0 [facility] Comment on above: Performed By: #### Deedee PINON UMICRO #### [facility] [address] [place] [address] Dr. Hardeep Rivera NEUT # 4.4 103/ul Normal 1.4-6.5 [facility] Comment on above: Performed By: #### Deedee PINON UMICRO #### [facility] [address] [place] [address] Dr. Hardeep Rivera Neutrophils/100 WBC (Bld) 69.4 % Normal 43.0-75.0 [facility] Comment on above: Performed By: #### Deedee PINON, UMICRO #### [facility] [address] [address] [address] Hardeep Rivera Platelet mean volume (Bld) [Entitic vol] 9.0 fL Critically low 9.5-13.5 [facility] Comment on above: Performed By: #### Deedee PINON, UMICRO #### [facility] [address] [address] [address] Hardeep Rivera PLT 205 103/ul Normal 150-450 [facility] Comment on above: Performed By: #### Deedee PINON, UMICRO #### [facility] [address] [address] [address] Hardeep Rivera RBC 4.45 106/ul Normal 4.20-5.40 [facility] Comment on above: Performed By: #### Deedee PINON, UMICRO #### [facility] [address] [address] [address] Hardeep Rivera WBC 6.3 103/ul Normal 4.0-11.0 [facility] Comment on above: Performed By: #### Deedee PINON, UMICRO #### [facility] [address] HEAD WO CONon [...] Bilirubin Ql (U) Negative Normal NEGATIVE [facility] Comment on above: Performed By: #### Deedee PINON UMICRO #### [facility] [address] [place] [address] Dr. Hardeep Rivera Clarity (U) CLEAR Normal CLEAR [facility] Comment on above: Performed By: #### Deedee PINON UMICRO #### [facility] [address] [place] [address] Dr. Hardeep Rivera Color (U) LT. YELLOW Normal YELLOW [facility] Comment on above: Performed By: #### Deedee PINON UMICRO #### [facility] [address] [place] [address] Dr. Hardeep Rivera ERUCHIDI A micrscopic examina tion will be performed if indicated. Normal [facility] Comment on above: Performed By: #### Deedee PINON UMICRO #### [facility] [address] [place] [address] Dr. Hardeep Rivera Glucose Ql (U) Negative Normal NEGATIVE [facility] Comment on above: Performed By: #### Deedee PINON UMICRO #### [facility] [address] [place] [address] Dr. Hardeep Rivera Hemoglobin Ql (U) TRACE-INTACT Abnormal NEGATIVE [facility] Comment on above: Performed By: #### Deedee PINON UMICRO #### [facility] [address] [place] [address] Dr. Hardeep Rivera Ketones Ql (U) Negative Normal NEGATIVE [facility] Comment on above: Performed By: #### Deedee PINON UMBENNETTRO #### [facility] [address] [place] [address] Dr. Hardeep Rivera LEUKOCYTES Negative Normal NEGATIVE [facility] Comment on above: Performed By: #### Deedee PINON UMICRO #### [facility] [address] [place] [address] Dr. Hardeep Rivera Nitrite Ql (U) Negative Normal NEGATIVE [facility] Comment on above: Performed By: #### Deedee PINON UMICRO #### [facility] [address] [place] [address] Dr. Hardeep Rivera pH (U) 7.0 [pH] Normal 5-9 [facility] Comment on above: Performed By: #### Deedee PINON UMICRO #### [facility] [address] [place] [address] Dr. Hardeep Rivera Protein (U) [Mass/Vol] 30 mg/dL Abnormal NEGATIVE/ TRACE [facility] Comment on above: Performed By: #### Deedee PINON UMICRO #### [facility] [address] [place] [address] Dr. Hardeep Rivera SPEC GRAVITY 1.010 Normal 1.005-<=1.0 25 [facility] Comment on above: Performed By: #### Deedee PINON UMICRO #### [facility] [address] [place] [address] Dr. Hardeep Rivera UR MICRO IND INDICATED Normal [facility] Comment on above: Performed By: #### Deedee PINON UMICRO #### [facility] [address] [place] [address] Dr. Hardeep Rivera Urobilinogen Qn (U) 0.2 {Kevon'U}/dL Normal 0.2 - 1. 0 [facility] Comment on above: Performed By: #### Deedee PINON UMICRO #### [facility] [address] [place] [address] Dr. Hardeep Rivera PROF 14(COMP METB)on 023 Albumin [Mass/Vol] 3.5 g/dL Normal 3.4-5.0 [facility] Comment on above: Performed By: #### H STROPN, CMP, TSH ####[facility] [address] [address]Dr. Hardeep Rivera Albumin/Globulin [Mass ratio] 1.2 {ratio} Normal [facility] Comment on above: Performed By: #### H TYLER CMP, TSH ####[facility] [address] [address]Dr. Preethiarabella Rivera ALP [Catalytic activity/Vol] 153 U/L Critically high 46-116 [facility] Comment on above: Performed By: #### H TYLER, CMP, TSH ####[facility] [address] [address]Dr. Hardeep Rivera ALT [Catalytic activity/Vol] 21 U/L Normal 14-59 [facility] Comment on above: Performed By: #### H TYLER CMP, TSH ####[facility] [address] [address]Dr. Hardeep Rivera Anion gap [Moles/Vol] 9.3 mmol/L Normal [facility] Comment on above: Performed By: #### H TYLER CMP, TSH ####[facility] [address] [address]Dr. Hardeep Rivera AST [Catalytic activity/Vol] 23 U/L Normal 15-37 [facility] Comment on above: Performed By: #### H TYLER CMP, TSH ####[facility] [address] [address]Dr. Hardeep Rivera Bilirubin [Mass/Vol] 0.6 mg/dL Normal 0.2-1.0 [facility] Comment on above: Performed By: #### H STRONATHANIEL, CMP, TSH ####[facility] [address] [address]Dr. Hardeep Rivera Calcium [Mass/Vol] 8.4 mg/dL Critically low 8.5-10.1 [facility] Comment on above: Performed By: #### H STRONATHANIEL, CMP, TSH ####[facility] [address] [place], [place] [address]Dr. Hardeep Rivera Chloride [Moles/Vol] 96 mmol/L Critically low 98-107 [facility] Comment on above: Performed By: #### H STROPN, CMP, TSH ####[facility] [address] [place] [address]Dr. Hardeep Rivera CO2 [Moles/Vol] 29.3 mmol/L Normal 21.0-32.0 [facility] Comment on above: Performed By: #### H STROPN, CMP, TSH ####[facility] [address] [place] [address]Dr. Hardeep Rivera Creatinine [Mass/Vol] 1.16 mg/dL Critically high 0.55-1.02 [facility] Comment on above: Performed By: #### H STROPN, CMP, TSH ####[facility] [address] [place], [place] [address]Dr. Hardeep Rivera EGFR-AF MAURITANIAN 55 mL/min/1.73m2 Critically low >=60 [facility] Comment on above: Performed By: #### H STROPN, CMP, TSH ####[facility] [address] [place] [address]Dr. Hardeep Rivera EGFR-NON AF MAURITANIAN 45 mL/min/1.73m2 Critically low >=60 [facility] Comment on above: Performed By: #### H STROPN, CMP, TSH ####[facility] [address] [place], [place] [address]Dr. Hardeep Rivera Globulin (S) [Mass/Vol] 2.9 g/dL Normal [facility] Comment on above: Performed By: #### H STROPN, CMP, TSH ####[facility] [address] [place] [address]Dr. Hardeep Rivera Glucose [Mass/Vol] 105 mg/dL Normal 74-106 [facility] Comment on above: Performed By: #### H STROPN, CMP, TSH ####[facility] [address] [place] [address]Dr. Hardeep Rivera Potassium [Moles/Vol] 4.6 mmol/L Normal 3.5-5.1 [facility] Comment on above: Performed By: #### H STROPN, CMP, TSH ####[facility] [address] [place] [address]Dr. Hardeep Rivera Protein [Mass/Vol] 6.4 g/dL Normal 6.4-8.2 [facility] Comment on above: Performed By: #### H GLADIS SCOTT, TSH ####[facility] [address] [place] [address]Dr. Hardeep Rivera Sodium [Moles/Vol] 130 mmol/L Critically low 136-145 [facility] Comment on above: Performed By: #### H GLADIS SCOTT, TSH ####[facility] [address] [place] [address]Dr. Hardeep Rivera Urea nitrogen [Mass/Vol] 27.0 mg/dL Critically high 7.0-18.0 [facility] Comment on above: Performed By: #### H GLADIS SCOTT, TSH ####[facility] Tr[address] [place], [place] [address]Dr. Hardeep Rivera Urea nitrogen/Creatinine [Mass ratio] 23.3 mg/mg [facility] Comment on above: Performed By: #### H GLADIS SCOTT, TSH ####[facility] [address] [place] [address]Dr. Hardeep Rivera PROTIMEon 02-14-2023 INR Coag (PPP) [Relative time] 1.07 {INR} Normal [facility] Comment on above: Performed By: #### P T, PTT ####[facility] [address]yft[address] [place], [place] [address]Dr. Hardeep Rivera INR GUIDELINES SEE BELOW Normal [facility] Comment on above: Result Comment: EDMUND RED INR: 2.0 - 3.0 CONDITIONS NOT LISTED BELOW 2.5 - 3.5 FOR PROSTHETIC HEART VALVE REPLACEMENT 2.5 - 3.5 RECURRENT THROMBOSIS Performed By: #### P T, PTT ####[facility] Opjys[address]ive[address] [place], [place] [address]Dr. Hardeep Rivera PT Coag (PPP) [Time] 11.3 s Normal 9.0-11.6 [facility] Comment on above: Performed By: #### P T, PTT ####[facility] [address]cl[address] [place] [id number]. Hardeep Rivera PTTon 02-14-2023 aPTT Coag (Bld) [Time] 29.1 s Normal 22.3-36.2 [facility] Comment on above: Performed By: #### P T, PTT ####[facility] [address] [place] [address]Dr. Hardeep Rivera TROPONIN, HIGH SENSITIVITYon 02-14-2023 HSTROP 10.4 pg/mL Normal 4.0-51.3 [facility] Comment on above: Result Comment: CUT- OFF POINTS HAVE BEEN ESTABLISHED BASED ON THE FOURTH UNIVERSAL DEFINITIONS OF MYOCARDIAL INFARCTION. THE UPPER REFERENCE LIMIT (URL) OF TROPONIN, DEFINED THE 99TH PERCENTILE OF cTnI DISTRIBUTION IN A REFERENCE POPULATION, HAS BEEN CONFIRMED THE DECISION THRESHOLD FOR OK DIAGNOSIS. Performed By: #### H TYLER CMP, TSH ####[facility] [address] [place] [address]Dr. Hardeep Rivera TSHon 02-14-2023 TSH 1.237 uIU/mL Normal 0.358-3.740 [facility] Comment on above: Performed By: #### H TYLER CMP, TSH ####[facility] [address] [place] [address]Dr. Hardeep Rivera URINE MICROSCOPIC ONLYon BACTERIA NONE SEEN Normal NONE SEEN [facility] Comment on above: Performed By: #### Deedee PINON UMICRO #### [facility] [address] [place] [address] Dr. Hardeep Rivera Bacteria identified Cx Nom (U) NOT INDICATED Normal [facility] Comment on above: Performed By: #### E RUR UMICRO #### [facility] [address] [place] [address] Dr. Hardeep Rivera CAST NONE SEEN Normal NONE SEEN [facility] Comment on above: Performed By: #### E RUR UMICRO #### [facility] [address] [place] [address] Dr. Hardeep Rivera Crystals LM Nom (Urine sed) NONE SEEN Normal NONE SEEN [facility] Comment on above: Performed By: #### E RUR, UMICRO #### [facility] [address] [address] [address] Hardeep Rivera Epithelial cells LM Ql (Urine sed) NONE SEEN Normal NONE SEEN /RARE [facility] Comment on above: Performed By: #### E RUR, UMICRO #### [facility] [address] [address] [address] Hardeep Rivera MUCOUS NONE SEEN Normal NONE SEEN [facility] Comment on above: Performed By: #### E RUR, UMICRO #### [facility] [address] [place] [address] Dr. Hardeep Rivera RBC 0-2 Normal 0-2 [facility] Comment on above: Performed By: #### E RUR, UMICRO #### [facility] [address] [place] [address] Dr. Hardeep Rivera WBC NONE SEEN Normal NONE SEEN [facility] Comment on above: Performed By: #### E RUR, UMICRO #### [facility] [address] [place] [address] Dr. Hardeep Rivera XR CHEST 1 Von [...] 1.4 ng/mL Critically low 2.0-20.0 [facility] Comment on above: Result Comment: Trou gh (immediately following transplant) 15.0 . Trough (steady state, 2 weeks or more after transplant): 3.0 - 8.0 . Performed by LC-MS/MS technology. Performed By: #### E RUR #### [facility] [address] [place] [address] Dr. Hardeep Rivera PROF 14(COMP METB)on 023 Albumin [Mass/Vol] 3.5 g/dL Normal 3.4-5.0 [facility] Comment on above: Performed By: #### C MP ####[facility] [address] [place], [place] [address]Dr. Hardeep Rivera Albumin/Globulin [Mass ratio] 1.2 {ratio} [facility] Comment on above: Performed By: #### C MP ####[facility] Bea[address]stwt[address] [place], [place] [address]Dr. Hardeep Rivera ALP [Catalytic activity/Vol] 149 U/L Critically high 46-116 [facility] Comment on above: Performed By: #### C MP ####[facility] Z[address]doejeq[address] [place], [place] [address]Dr. Hardeep Rivera ALT [Catalytic activity/Vol] 19 U/L Normal 14-59 [facility] Comment on above: Performed By: #### C MP ####[facility] Toxjptlnwh[address] [place], [place] [address]Dr. Hardeep Rivera Anion gap [Moles/Vol] 11.7 mmol/L Normal [facility] Comment on above: Performed By: #### C MP ####[facility] [address] [place], [place] [address]Dr. Hardeep Rivera AST [Catalytic activity/Vol] 27 U/L Normal 15-37 [facility] Comment on above: Performed By: #### C MP ####[facility] Jpjr[address]qazf[address] [place], [place] [address]Dr. Hardeep Rivera Bilirubin [Mass/Vol] 0.6 mg/dL Normal 0.2-1.0 [facility] Comment on above: Performed By: #### C MP ####[facility] Fpx[address]ensnwt[address] [place], [place] [address]Dr. Hardeep Rivera Calcium [Mass/Vol] 8.5 mg/dL Normal 8.5-10.1 [facility] Comment on above: Performed By: #### C MP ####[facility] [address] [place], [place] [address]Dr. Hardeep Rivera Chloride [Moles/Vol] 96 mmol/L Critically low 98-107 [facility] Comment on above: Performed By: #### C MP ####[facility] [address] [place] [address]Dr. Preethiarabella Miguel CO2 [Moles/Vol] 28.1 mmol/L Normal 21.0-32.0 [facility] Comment on above: Performed By: #### C MP ####[facility] Urxaxyl[address] [place], [place] [address]Dr. Hardeep Rivera Creatinine [Mass/Vol] 1.24 mg/dL Critically high 0.55-1.02 [facility] Comment on above: Performed By: #### C MP ####[facility] [address]qsu[address]os[address] [place], [place] [address]Dr. Hardeep Rivera EGFR-AF MAURITANIAN 51 mL/min/1.73m2 Critically low >=60 [facility] Comment on above: Performed By: #### C MP ####[facility] Wn[address] [place], [place] [address]Dr. Hardeep Rivera EGFR-NON AF MAURITANIAN 42 mL/min/1.73m2 Critically low >=60 [facility] Comment on above: Performed By: #### C MP ####[facility] Cltfbq[address]mv[address] [place], [place] [address]Dr. Hardeep Rivera Globulin (S) [Mass/Vol] 3.0 g/dL Normal [facility] Comment on above: Performed By: #### C MP ####[facility] Meetgwgyom[address] [place], [place] [address]DrLaura Rivera Glucose [Mass/Vol] 141 mg/dL Critically high 74-106 [facility] Comment on above: Performed By: #### C MP ####[facility] H[address]zzorefox[address] [place], [place] [address]Dr. Hardeep Rivera Potassium [Moles/Vol] 4.8 mmol/L Normal 3.5-5.1 [facility] Comment on above: Performed By: #### C MP ####[facility] Rmxgpilbtf[address] [place], [place] [address]Dr. Hardeep Rivera Protein [Mass/Vol] 6.5 g/dL Normal 6.4-8.2 [facility] Comment on above: Performed By: #### C MP ####[facility] [address] [place] [address]Dr. Hardeep Rivera Sodium [Moles/Vol] 131 mmol/L Critically low 136-145 [facility] Comment on above: Performed By: #### C MP ####[facility] [address] [place] [address]Dr. Hardeep Rivera Urea nitrogen [Mass/Vol] 29.0 mg/dL Critically high 7.0-18.0 [facility] Comment on above: Performed By: #### C MP ####[facility] Isnqlvxxdc[address] [place], [place] [address]Dr. Hardeep Rivera Urea nitrogen/Creatinine [Mass ratio] 23.4 mg/mg Normal [facility] Comment on above: Performed By: #### C MP ####[facility] Dudqcazfuu[address] [place], [place] [address]Dr. Hardeep Rivera BNPon 01-09-2023 Natriuretic peptide B (Bld) [Mass/Vol] 336.0 pg/mL Normal <=1,800.0 [facility] Comment on above: Performed By: #### C MP, TSH, BNP, T7 ####[facility] Prell[address]wtvo[address] [place], [place] [address]Dr. Hardeep Rivera CBC AUTO DIFFon 01-09-2023 BASO # 0.0 103/ul Normal 0.0-0.1 [facility] Comment on above: Performed By: #### C BC #### [facility] [address] [place] [address] Dr. Hardeep Rivera Basophils/100 WBC (Bld) 0.4 % Normal 0.2-2.0 [facility] Comment on above: Performed By: #### C BC #### [facility] [address] [place] [address] Dr. Hardeep Rivera EO # 0.3 103/ul Normal 0.0-0.7 [facility] Comment on above: Performed By: #### C BC #### [facility] [address] [place] [address] Dr. Hardeep Rivera Eosinophils/100 WBC (Bld) 4.4 % Normal 0.9-7.0 [facility] Comment on above: Performed By: #### C BC #### [facility] [address] [place] [address] Dr. Hardeep Rivera Erythrocyte distribution width (RBC) [Ratio] 12.3 % Normal 11.0-15.0 [facility] Comment on above: Performed By: #### C BC #### [facility] [address] [place] [address] Dr. Hardeep Rivera Hematocrit (Bld) [Volume fraction] 43.3 % Normal 36.0-48.0 [facility] Comment on above: Performed By: #### C BC #### [facility] [address] [place] [address] Dr. Hardeep Rivera Hemoglobin (Bld) [Mass/Vol] 13.5 g/dL Normal 12.0-16.0 [facility] Comment on above: Performed By: #### C BC #### [facility] [address] [place] [address] Dr. Hardeep Rivera IG # 0.02 10e3/ul Normal 0.00-0.03 [facility] Comment on above: Performed By: #### C BC #### [facility] [address] [place] [address] Dr. Hardeep Rivera IG % 0.3 % Normal 0.0-0.5 [facility] Comment on above: Performed By: #### C BC #### [facility] [address] [place] [address] Dr. Hardeep Rivera LYMPH # 1.1 103/ul Critically low 1.2-3.8 [facility] Comment on above: Performed By: #### C BC #### [facility] [address] [place] [address] Dr. Hardeep Rivera Lymphocytes/100 WBC (Bld) 16.0 % Critically low 20.5-60.0 [facility] Comment on above: Performed By: #### C BC #### [facility] [address] [place] [address] Dr. Hardeep Rivera MANUAL DIFF REQ NO Normal [facility] Comment on above: Performed By: #### C BC #### [facility] [address] [place] [address] Dr. Hardeep Rivera MCH (RBC) [Entitic mass] 28.4 pg Normal 26.7-34.0 [facility] Comment on above: Performed By: #### C BC #### [facility] [address] [place] [address] Dr. Hardeep Rivera MCHC (RBC) [Mass/Vol] 31.2 g/dL Normal 29.9-35.2 [facility] Comment on above: Performed By: #### C BC #### [facility] [address] [place] [address] Dr. aHrdeep Rivera MCV (RBC) [Entitic vol] 91.0 fL Normal 81.0-99.0 [facility] Comment on above: Performed By: #### C BC #### [facility] [address] [place] [address] Dr. Hardeep Rivera MONO # 1.0 103/ul Critically high 0.3-0.8 [facility] Comment on above: Performed By: #### C BC #### [facility] [address] [place] [address] Dr. Hardeep Rivera Monocytes/100 WBC (Bld) 14.7 % Critically high 1.7-12.0 [facility] Comment on above: Performed By: #### C BC #### [facility] [address] [place] [address] Dr. Hardeep Rivera NEUT # 4.4 103/ul Normal 1.4-6.5 [facility] Comment on above: Performed By: #### C BC #### [facility] [address] [place] [address] Dr. Hardeep Rivera Neutrophils/100 WBC (Bld) 64.2 % Normal 43.0-75.0 [facility] Comment on above: Performed By: #### C BC #### [facility] [address] [address] [address] Hardeep Rivera Platelet mean volume (Bld) [Entitic vol] 9.5 fL Normal 9.5-13.5 [facility] Comment on above: Performed By: #### C BC #### [facility] [address] [address] [address] Hardeep Rivera PLT 238 103/ul Normal 150-450 [facility] Comment on above: Performed By: #### C BC #### [facility] [address] [address] [address] Hardeep Rivera RBC 4.76 106/ul Normal 4.20-5.40 [facility] Comment on above: Performed By: #### C BC #### [facility] [address] [address] [address] Hardeep Rivera WBC 6.8 103/ul Normal 4.0-11.0 [facility] Comment on above: Performed By: #### C BC #### [facility] [address] [address] [address] Hardeep Rivera FREE THYROXINE INDEX T7on FTI 3.96 Normal 1.30-4.50 [facility] Comment on above: Performed By: #### C MP, TSH, BNP, T7 ####[facility] [address] [place], [place] [address]WiDr. Hardeep Rivera T3U 35.0 % Normal 30.0-39.0 [facility] Comment on above: Performed By: #### C MP, TSH, BNP, T7 ####[facility] [address] [place], [place] [address]ShDr. aHrdeep Rivera T4 [Mass/Vol] 11.30 ug/dL Normal 4.80-13.90 [facility] Comment on above: Performed By: #### C MP, TSH, BNP, T7 ####[facility] [address] [place], [place] [address]YhDr. Hardeep Rivera PROF 14(COMP METB)on 023 Albumin [Mass/Vol] 3.9 g/dL Normal 3.4-5.0 [facility] Comment on above: Performed By: #### C MP, TSH, BNP, T7 ####[facility] [address] [place] [address]Dr. Hardeep Rivera Albumin/Globulin [Mass ratio] 1.2 {ratio} [facility] Comment on above: Performed By: #### C MP, TSH, BNP, T7 ####[facility] [address] [place] [address]Dr. Hardeep Rivera ALP [Catalytic activity/Vol] 151 U/L Critically high 46-116 [facility] Comment on above: Performed By: #### C MP, TSH, BNP, T7 ####[facility] [address] [place], [place] [address]Dr. Hardeep Rivera ALT [Catalytic activity/Vol] 30 U/L Normal 14-59 [facility] Comment on above: Performed By: #### C MP, TSH, BNP, T7 ####[facility] [address]reps[address]osay[address] [place], [place] [address]Dr. Hardeep Rivera Anion gap [Moles/Vol] 15.6 mmol/L [facility] Comment on above: Performed By: #### C MP, TSH, BNP, T7 ####[facility] Th[address]vnhsav[address] [place], [place] [address]Dr. Hardeep Rivera AST [Catalytic activity/Vol] 23 U/L Normal 15-37 [facility] Comment on above: Performed By: #### C MP, TSH, BNP, T7 ####[facility] [address]rq[address] [place], [place] [address]Dr. Hardeep Rivera Bilirubin [Mass/Vol] 0.7 mg/dL Normal 0.2-1.0 [facility] Comment on above: Performed By: #### C MP, TSH, BNP, T7 ####[facility] Edwq[address]qzc[address] [place], [place] [address]Dr. Hardeep Rivera Calcium [Mass/Vol] 9.0 mg/dL Normal 8.5-10.1 [facility] Comment on above: Performed By: #### C MP, TSH, BNP, T7 ####[facility] [address] [place] [address]Dr. Hardeep Rivera Chloride [Moles/Vol] 97 mmol/L Critically low 98-107 [facility] Comment on above: Performed By: #### C MP, TSH, BNP, T7 ####[facility] [address] [place] [address]Dr. Hardeep Rivera CO2 [Moles/Vol] 26.1 mmol/L Normal 21.0-32.0 [facility] Comment on above: Performed By: #### C MP, TSH, BNP, T7 ####[facility] [address] [place] [address]Dr. Hardeep Rivera Creatinine [Mass/Vol] 1.78 mg/dL Critically high 0.55-1.02 [facility] Comment on above: Performed By: #### C MP, TSH, BNP, T7 ####[facility] K[address]zdaky[address] [place], [place] [address]Dr. Hardeep Miguel EGFR-AF MAURITANIAN 33 mL/min/1.73m2 Critically low >=60 [facility] Comment on above: Performed By: #### C MP, TSH, BNP, T7 ####[facility] [address]ryms[address]col[address] [place], [place] [address]Dr. Hardeep Miguel EGFR-NON AF MAURITANIAN 28 mL/min/1.73m2 Critically low >=60 [facility] Comment on above: Performed By: #### C MP, TSH, BNP, T7 ####[facility] [address]ni[address] [place], [place] [address]Dr. Preethiarabella Rivera Globulin (S) [Mass/Vol] 3.3 g/dL [facility] Comment on above: Performed By: #### C MP, TSH, BNP, T7 ####[facility] [address]zt[address]yl[address] [place], [place] [address]Dr. Preethiarabella Miguel Glucose [Mass/Vol] 127 mg/dL Critically high 74-[address] [facility] Comment on above: Performed By: #### C MP, TSH, BNP, T7 ####[facility] [address] [place], [place] [address]Dr. Hardeep Rivera Potassium [Moles/Vol] 3.7 mmol/L Normal 3.5-5.1 [facility] Comment on above: Performed By: #### C MP, TSH, BNP, T7 ####[facility] [address] [place] [address]Dr. Hardeep Rivera Protein [Mass/Vol] 7.2 g/dL Normal 6.4-8.2 [facility] Comment on above: Performed By: #### C MP, TSH, BNP, T7 ####[facility] [address] [place] [address]Dr. Hardeep Rivera Sodium [Moles/Vol] 135 mmol/L Critically low 136-145 [facility] Comment on above: Performed By: #### C MP, TSH, BNP, T7 ####[facility] [address] [place] [address]Dr. Hardeep Rivera Urea nitrogen [Mass/Vol] 54.0 mg/dL Critically high 7.0-18.0 [facility] Comment on above: Performed By: #### C MP, TSH, BNP, T7 ####[facility] [address] [place] [address]Dr. Hardeep Rivera Urea nitrogen/Creatinine [Mass ratio] 30.3 mg/mg [facility] Comment on above: Performed By: #### C MP, TSH, BNP, T7 ####[facility] [address] [place] [address]Dr. Hardeep Rivera TSHon 01-09-2023 TSH 1.097 uIU/mL Normal 0.358-3.740 [facility] Comment on above: Performed By: #### C MP, TSH, BNP, T7 ####[facility] [address] [place] [address]Dr. Hardeep Rivera ECHOCARDIO M/2D COMPLETEon 0 12-13-2022 ECHOCARDIO M/2D COMPLETE Patient: SYLVIA HERRERA Exam Date: 12/13/2022 : 1945 Gender:F Ordering : [facility] Admission #: [id number] Family : Order #: [id number] CLICK HERE TO VIEW EXAM ECHOCARDIOGRAM REPORT [...] Area (VTI): 2.23 cm2, 2.23 cm2 Deceleration [place]: 1.44 m/s2 Pressure Half-Time: 850.98 ms Peak [...] Nolan M.D. on 12/14/2022 at 13:49 [facility] ALAN DOP LEG BILon [...] FOSTER Date: 2022-12-13 10:51 Normal [facility] BNPon 12-11-2022 Natriuretic peptide B (Bld) [Mass/Vol] 457.0 pg/mL Normal <=1,800.0 [facility] Comment on above: Performed By: #### RANDALL OLSON #### [facility] [address] [place] [address] Dr. Hardeep Rivera CBC AUTO DIFFon 12-11-2022 BASO # 0.0 103/ul Normal 0.0-0.1 [facility] Comment on above: Performed By: #### RANDALL OLSON #### [facility] [address] [place] [address] Dr. Hardeep Rivera Basophils/100 WBC (Bld) 0.4 % Normal 0.2-2.0 [facility] Comment on above: Performed By: #### RANDALL OLSON #### [facility] [address] [place] [address] Dr. Hardeep Rivera EO # 0.2 103/ul Normal 0.0-0.7 [facility] Comment on above: Performed By: #### RANDALL OLSON #### [facility] [address] [place] [address] Dr. Hardeep Rivera Eosinophils/100 WBC (Bld) 2.7 % Normal 0.9-7.0 [facility] Comment on above: Performed By: #### HARI OLSONRO #### [facility] [address] [place] [address] Dr. Hardeep Rivera Erythrocyte distribution width (RBC) [Ratio] 11.9 % Normal 11.0-15.0 [facility] Comment on above: Performed By: #### HARI OLSONRO #### [facility] [address] [place] [address] Dr. Hardeep Rivera Hematocrit (Bld) [Volume fraction] 40.2 % Normal 36.0-48.0 [facility] Comment on above: Performed By: #### Deedee PINON UMICRO #### [facility] [address] [place] [address] Dr. Hardeep Rivera Hemoglobin (Bld) [Mass/Vol] 13.5 g/dL Normal 12.0-16.0 [facility] Comment on above: Performed By: #### Deedee PINON UMICRO #### [facility] [address] [place] [address] Dr. Hardeep Rivera IG # 0.03 10e3/ul Normal 0.00-0.03 [facility] Comment on above: Performed By: #### Deedee PINON UMICRO #### [facility] [address] [place] [address] Dr. Hardeep Rivera IG % 0.4 % Normal 0.0-0.5 [facility] Comment on above: Performed By: #### Deedee PINON UMICRO #### [facility] [address] [place] [address] Dr. Hardeep Rivera LYMPH # 0.9 103/ul Critically low 1.2-3.8 [facility] Comment on above: Performed By: #### Deedee PINON UMICRO #### [facility] [address] [place] [address] Dr. Hardeep Rivera Lymphocytes/100 WBC (Bld) 11.3 % Critically low 20.5-60.0 [facility] Comment on above: Performed By: #### Deedee PINON UMICRO #### [facility] [address] [place] [address] Dr. Hardeep Rivera MANUAL DIFF REQ NO Normal [facility] Comment on above: Performed By: #### Deedee PINON UMICRO #### [facility] [address] [place] [address] Dr. Hardeep Rivera MCH (RBC) [Entitic mass] 28.4 pg Normal 26.7-34.0 [facility] Comment on above: Performed By: #### Deedee PINON UMICRO #### [facility] [address] [place] [address] Dr. Hardeep Rivera MCHC (RBC) [Mass/Vol] 33.6 g/dL Normal 29.9-35.2 [facility] Comment on above: Performed By: #### HARI OLSONRO #### [facility] [address] [place] [address] Dr. Hardeep Rivera MCV (RBC) [Entitic vol] 84.5 fL Normal 81.0-99.0 [facility] Comment on above: Performed By: #### Deedee PINON UMICRO #### [facility] [address] [place] [address] Dr. Hardeep Rivera MONO # 1.0 103/ul Critically high 0.3-0.8 [facility] Comment on above: Performed By: #### Deedee PINON UMICRO #### [facility] [address] [place] [address] Dr. Hardeep Rivera Monocytes/100 WBC (Bld) 12.5 % Critically high 1.7-12.0 [facility] Comment on above: Performed By: #### Deedee PINON UMICRO #### [facility] [address] [place] [address] Dr. Hardeep Rivera NEUT # 5.9 103/ul Normal 1.4-6.5 [facility] Comment on above: Performed By: #### Deedee PINON UMICRO #### [facility] [address] [place] [address] Dr. Hardeep Rivera Neutrophils/100 WBC (Bld) 72.7 % Normal 43.0-75.0 [facility] Comment on above: Performed By: #### Deedee PINON UMICRO #### [facility] [address] [place] [address] Dr. Hardeep Rivera Platelet mean volume (Bld) [Entitic vol] 8.6 fL Critically low 9.5-13.5 [facility] Comment on above: Performed By: #### Deedee PINON UMICRO #### [facility] [address] [place] [address] Dr. Hardeep Rivera PLT 226 103/ul Normal 150-450 [facility] Comment on above: Performed By: #### HARI LOSONRO #### [facility] [address] [place] [address] Dr. Hardeep Rivera RBC 4.76 106/ul Normal 4.20-5.40 [facility] Comment on above: Performed By: #### HARI OLSONRO #### [facility] [address] [place] [address] Dr. Hardeep Rivera WBC 8.2 103/ul Normal 4.0-11.0 [facility] Comment on above: Performed By: #### Deedee PINON UMICRO #### [facility] [address] [place] [address] Dr. Hardeep Rivera FREE THYROXINE INDEX T7on FTI 3.40 Normal 1.30-4.50 [facility] Comment on above: Performed By: #### HARI OLSONRO #### [facility] [address] [place] [address] Dr. Hardeep Rivera T3U 34.0 % Normal 30.0-39.0 [facility] Comment on above: Performed By: #### HARI OLSONRO #### [facility] [address] [place] [address] Dr. Hardeep Rivera T4 [Mass/Vol] 10.00 ug/dL Normal 4.80-13.90 [facility] Comment on above: Performed By: #### HARI OLSONRO #### [facility] [address] [place] [address] Dr. Hardeep Rivera PROF 14(COMP METB)on 023 Albumin [Mass/Vol] 3.8 g/dL Normal 3.4-5.0 [facility] Comment on above: Performed By: #### HARI OLSONRO #### [facility] [address] [place] [address] Dr. Hardeep Rivera Albumin/Globulin [Mass ratio] 1.1 {ratio} Normal [facility] Comment on above: Performed By: #### HARI OLSONRO #### [facility] [address] [place] [address] Dr. Hardeep Rivera ALP [Catalytic activity/Vol] 192 U/L Critically high 46-116 [facility] Comment on above: Performed By: #### RANDALL OLSON #### [facility] [address] [place] [address] Dr. Hardeep Rivera ALT [Catalytic activity/Vol] 22 U/L Normal 14-59 [facility] Comment on above: Performed By: #### RANDALL OLSON #### [facility] [address] [place] [address] Dr. Hardeep Rivera Anion gap [Moles/Vol] 11.4 mmol/L Normal [facility] Comment on above: Performed By: #### RANDALL OLSON #### [facility] [address] [place] [address] Dr. Hardeep Rivera AST [Catalytic activity/Vol] 22 U/L Normal 15-37 [facility] Comment on above: Performed By: #### RANDALL OLSON #### [facility] [address] [place] [address] Dr. Hardeep Rivera Bilirubin [Mass/Vol] 0.5 mg/dL Normal 0.2-1.0 [facility] Comment on above: Performed By: #### RANDALL OLSON #### [facility] [address] [place] [address] Dr. Hardeep Rivera Calcium [Mass/Vol] 9.1 mg/dL Normal 8.5-10.1 [facility] Comment on above: Performed By: #### HARI OLSONRO #### [facility] [address] [place] [address] Dr. Hardeep Rivera Chloride [Moles/Vol] 93 mmol/L Critically low 98-107 [facility] Comment on above: Performed By: #### RANDALL OLSON #### [facility] [address] [place] [address] Dr. Hardeep Rivera CO2 [Moles/Vol] 30.8 mmol/L Normal 21.0-32.0 [facility] Comment on above: Performed By: #### HARI OLSONRO #### [facility] [address] [place] [address] Dr. Hardeep Rivera Creatinine [Mass/Vol] 1.49 mg/dL Critically high 0.55-1.02 [facility] Comment on above: Performed By: #### E RUR, UMICRO #### [facility] [address] [place] [address] Dr. Hardeep Rivera EGFR-AF MAURITANIAN 41 mL/min/1.73m2 Critically low >=60 [facility] Comment on above: Performed By: #### E RUR, UMICRO #### [facility] [address] [place] [address] Dr. Hardeep Rivera EGFR-NON AF MAURITANIAN 34 mL/min/1.73m2 Critically low >=60 [facility] Comment on above: Performed By: #### E RUR, UMICRO #### [facility] [address] [place] [address] Dr. Hardeep Rivera Globulin (S) [Mass/Vol] 3.4 g/dL Normal [facility] Comment on above: Performed By: #### E RUR, UMICRO #### [facility] [address] [place] [address] Dr. Hardeep Rivera Glucose [Mass/Vol] 116 mg/dL Critically high 74-[address] [facility] Comment on above: Performed By: #### E RUR, UMICRO #### [facility] [address] [place] [address] Dr. Hardeep Rivera Potassium [Moles/Vol] 4.2 mmol/L Normal 3.5-5.1 [facility] Comment on above: Performed By: #### E RUR, UMICRO #### [facility] [address] [place] [address] Dr. Hardeep Rivera Protein [Mass/Vol] 7.2 g/dL Normal 6.4-8.2 [facility] Comment on above: Performed By: #### E RUR, UMICRO #### [facility] [address] [place] [address] Dr. Hardeep Rivera Sodium [Moles/Vol] 131 mmol/L Critically low 136-145 [facility] Comment on above: Performed By: #### RANDALL OLSON #### [facility] [address] [place] [address] Dr. Hardeep Rivera Urea nitrogen [Mass/Vol] 38.0 mg/dL Critically high 7.0-18.0 [facility] Comment on above: Performed By: #### HARI OLSONRO #### [facility] [address] [address] [address] Hardeep Rivera Urea nitrogen/Creatinine [Mass ratio] 25.5 mg/mg Normal [facility] Comment on above: Performed By: #### RANDALL OLSON #### [facility] [address] [place] [address] Dr. Hardeep Rivera TSHon 12-11-2022 TSH 6.407 uIU/mL Critically high 0.358-3.740 [facility] Comment on above: Performed By: #### RANDALL OLSON #### [facility] [address] [place] [address] Dr. Hardeep Rivera [facility]01 SARS-CoV-2 (COVID-19) RNA ULICES+probe Ql (Unsp spec) Not detected Normal NOT DETECTED [facility] Comment on above: Result Comment: This test is not yet approved or cleared by the [place] FDA. When there are no FDA-approved or cleared tests available, and other criteria are met, FDA can make tests available under an emergency access mechanism called an Emergency Use Authorization (EUA). The EUA for this test is supported by the [place] of Health and Human Service's (HHS's) declaration [...] consistent with SARS-CoV-2. Performed By: #### C [facility] #### [facility] [address] [place] [address] Dr. Hardeep Rivera INFLUENZA A AND B AGon 11-14 [facility] SEE BELOW Normal [facility] Comment on above: Result Comment: Nega tive for Flu A protein angiten. Infection due to Flu A cannot be ruled out. Flu A angiten in the sample may be below the detection limit of the test. Performed By: #### Deedee PINON UMICRO #### [facility] [address] [place] [address] Dr. Hardeep Rivera [facility] SEE BELOW Normal [facility] Comment on above: Result Comment: Nega tive for Flu B protein antigen. Infection due to Flu B cannot be ruled out. Flu B antigen in the sample may be below the detection limit of the test. Performed By: #### Deedee PINON UMICRO #### [facility] [address] [place] [address] Dr. Hardeep Rivera INFLUENZA A AG Negative Normal NEGATIVE SEE COMMENT [facility] Comment on above: Performed By: #### Deedee PINON ICRO #### [facility] [address] [place] [address] Dr. Hardeep Rivera INFLUENZA B AG Negative Normal NEGATIVE SEE COMMENT [facility] Comment on above: Performed By: #### Deedee PINON UMICRO #### [facility] [address] [place] [address] Dr. Hardeep Rivera INTERNAL CONTROLS Within Normal Limits Normal Wi thin Normal Limits [facility] Comment on above: Performed By: #### Deedee PINON UMICRO #### [facility] [address] [place] [address] Dr. Hardeep Rivera Cov[facility] ([facility])on SARS-CoV-2 (COVID-19) RNA ULICES+probe Ql (Unsp [...] for this test is supported by the [place] of Health and Human Service's (HHS's) declaration [...] consistent with SARS-CoV-2. Performed By: #### [facility] #### [facility] [address] [place] [address] Dr. Hardeep Rivera INFLUENZA A AND B [facility] 10-03 [facility] SEE BELOW Normal [facility] Comment on above: Result Comment: Nega tive for Flu A protein angiten. Infection due to Flu A cannot be ruled out. Flu A angiten in the sample may be below the detection limit of the test. Performed By: #### E AKSHAT PINONICRO #### [facility] [address] [place] [address] Dr. [facility] Comment on above: Result Comment: Nega tive for Flu B protein antigen. Infection due to Flu B cannot be ruled out. Flu B antigen in the sample may be below the detection limit of the test. Performed By: #### E KATHRIN UMICRO #### [facility] [address] [place] [address] Dr. Hardeep Rivera INFLUENZA A AG Negative Normal NEGATIVE SEE COMMENT [facility] Comment on above: Performed By: #### E KATHRIN, UMICRO #### [facility] [address] [place] [address] Dr. Hardeep Rivera INFLUENZA B AG Negative Normal NEGATIVE SEE COMMENT [facility] Comment on above: Performed By: #### E RUR, ICRO #### [facility] [address] [place], [place] [address] Dr. Hardeep Rivera INTERNAL CONTROLS Within Normal Limits Normal Wi thin Normal Limits [facility] Comment on above: Performed By: #### E COLLINSR, ICRO #### [facility] [address] [place], [place] [address] Dr. Hardeep Clark [facility] SYLVIA HERRERA ([id number]) 1945 F Date Time Provider Department 08/16/22 SOY MCCANN [facility] ISACC During your visit today, we [...] mg by mouth three times daily. 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 AMYLASEon 08-04-2022 Amylase [Catalytic activity/Vol] 155 U/L Critically high 25-115 [facility] Comment on above: Performed By: #### C ABAD MORE AMY ####[facility] [address] [address]Dr. Hardeep Miguel CBC AUTO DIFFon 08-04-2022 BASO # 0.0 103/ul Normal 0.0-0.1 [facility] Comment on above: Performed By: #### C BC ####[facility] [address] [address]Dr. Hardeep Rivera Basophils/100 WBC (Bld) 0.3 % Normal 0.2-2.0 [facility] Comment on above: Performed By: #### C BC ####[facility] [address] [place], [place] [address]Dr. Hardeep Rivera EO # 0.1 103/ul Normal 0.0-0.7 [facility] Comment on above: Performed By: #### C BC ####[facility] [address] [address]Dr. Hardeep Rivera Eosinophils/100 WBC (Bld) 1.2 % Normal 0.9-7.0 [facility] Comment on above: Performed By: #### C BC ####[facility] [address] [place], [place] [address]Dr. Hardeep Rivera Erythrocyte distribution width (RBC) [Ratio] 12.2 % Normal 11.0-15.0 [facility] Comment on above: Performed By: #### C BC ####[facility] [address] [place], [place] [address]Dr. Hardeep Rivera Hematocrit (Bld) [Volume fraction] 38.3 % Normal 36.0-48.0 [facility] Comment on above: Performed By: #### C BC ####[facility] [address] [place], [place] [address]Dr. Hardeep Rivera Hemoglobin (Bld) [Mass/Vol] 12.9 g/dL Normal 12.0-16.0 [facility] Comment on above: Performed By: #### C BC ####[facility] [address] [id number]. Preethiarabella Miguel IG # 0.02 10e3/ul Normal 0.00-0.03 [facility] Comment on above: Performed By: #### C BC ####[facility] [address] [id number]. Hardeep Rivera IG % 0.3 % Normal 0.0-0.5 [facility] Comment on above: Performed By: #### C BC ####[facility] [address] [address]Dr. Hardeep Rivera LYMPH # 1.1 103/ul Critically low 1.2-3.8 [facility] Comment on above: Performed By: #### C BC ####[facility] [address] [address]Dr. Hardeep Rivera Lymphocytes/100 WBC (Bld) 16.6 % Critically low 20.5-60.0 [facility] Comment on above: Performed By: #### C BC ####[facility] [address] [address]Dr. Hardeep Rivera MANUAL DIFF REQ NO Normal [facility] Comment on above: Performed By: #### C BC ####[facility] [address] [id number]. Hardeep Rivera MCH (RBC) [Entitic mass] 29.7 pg Normal 26.7-34.0 [facility] Comment on above: Performed By: #### C BC ####[facility] [address] [place], [place] [address]Dr. Preethiarabella Rivera MCHC (RBC) [Mass/Vol] 33.7 g/dL Normal 29.9-35.2 [facility] Comment on above: Performed By: #### C BC ####[facility] [address] [id number]. Hardeep Rivera MCV (RBC) [Entitic vol] 88.2 fL Normal 81.0-99.0 [facility] Comment on above: Performed By: #### C BC ####[facility] [address] [id number]. Hardeep Rivera MONO # 0.7 103/ul Normal 0.3-0.8 [facility] Comment on above: Performed By: #### C BC ####[facility] [address] [phone]. Hardeep Rivera Monocytes/100 WBC (Bld) 11.1 % Normal 1.7-12.0 [facility] Comment on above: Performed By: #### C BC ####[facility] [address] [phone]. Hardeep Rivera NEUT # 4.6 103/ul Normal 1.4-6.5 [facility] Comment on above: Performed By: #### C BC ####[facility] [address] [address]Dr. Hardeep Rivera Neutrophils/100 WBC (Bld) 70.5 % Normal 43.0-75.0 [facility] Comment on above: Performed By: #### C BC ####[facility] [address] [address]Dr. Hardeep Rivera Platelet mean volume (Bld) [Entitic vol] 9.4 fL Critically low 9.5-13.5 [facility] Comment on above: Performed By: #### C BC ####[facility] [address] [address]Dr. Hardeep Rivera PLT 203 103/ul Normal 150-450 [facility] Comment on above: Performed By: #### C BC ####[facility] [address] [place], [place] [address]Dr. Hardeep Rivera RBC 4.34 106/ul Normal 4.20-5.40 [facility] Comment on above: Performed By: #### C BC ####[facility] [address] [address]Dr. Hardeep Rivera WBC 6.5 103/ul Normal 4.0-11.0 [facility] Comment on above: Performed By: #### C BC ####[facility] [address] [place], [place] [address]Ck. Harde[address] CT ABD/PELVIS WO CONon 08-04 [...] for this test is supported by the [place] of Health and Human Service's declaration that [...] used). Performed By: #### C VDTBH ####[facility] [address] [place], [place] [address]GxDr. Hardeep Rivera ER URINE PROFILEon 2 Bilirubin Ql (U) Negative Normal NEGATIVE [facility] Comment on above: Performed By: #### E RUR #### [facility] [address] [place], [place] [address] Dr. Hardeep Rivera Clarity (U) CLEAR Normal CLEAR [facility] Comment on above: Performed By: #### E RUR #### [facility] [address] [address] [address] Hardeep Rivera Color (U) LT. YELLOW Normal YELLOW [facility] Comment on above: Performed By: #### E RUR #### [facility] [address] [place] [address] Dr. Hardeep FRANCIS A micrscopic examina tion will be performed if indicated. Normal [facility] Comment on above: Performed By: #### E RUR #### [facility] [address] [place] [address] Dr. Hardeep Rivera Glucose Ql (U) Negative Normal NEGATIVE [facility] Comment on above: Performed By: #### E RUR #### [facility] [address] [place] [address] Dr. Hardeep Rivera Hemoglobin Ql (U) Negative Normal NEGATIVE [facility] Comment on above: Performed By: #### E RUR #### [facility] [address] [place] [address] Dr. Hardeep Rivera Ketones Ql (U) Negative Normal NEGATIVE [facility] Comment on above: Performed By: #### E RUR #### [facility] [address] [place] [address] Dr. Hardeep Rivera LEUKOCYTES Negative Normal NEGATIVE [facility] Comment on above: Performed By: #### E RUR #### [facility] [address] [place] [address] Dr. Hardeep Rivera Nitrite Ql (U) Negative Normal NEGATIVE [facility] Comment on above: Performed By: #### E RUR #### [facility] [address] [place] [address] Dr. Hardeep Rivera pH (U) 7.0 [pH] Normal 5-9 [facility] Comment on above: Performed By: #### E RUR #### [facility] [address] [place] [address] Dr. Hardeep Rivera SPEC GRAVITY <=1.005 Abnormal 1.005-<=1.0 25 [facility] Comment on above: Performed By: #### E RUR #### [facility] [address] [address] [address] Hardeep Rivera UA PROTEIN Negative Normal NEGATIVE/ TRACE [facility] Comment on above: Performed By: #### E RUR #### [facility] [address] [address] [address] Hardeep Rivera UR MICRO IND NOT INDICATED Normal [facility] Comment on above: Performed By: #### E RUR #### [facility] [address] [address] [address] Hardeep Rivera Urobilinogen Qn (U) 0.2 {Kevon'U}/dL Normal 0.2 - 1. 0 [facility] Comment on above: Performed By: #### E RUR #### [facility] [address] [address] [address] Hardepe Rivera LIPASEon 08-04-2022 Lipase [Catalytic activity/Vol] 1486.0 U/L Critically high 73.0-393.0 [facility] Comment on above: Performed By: #### C MP, LIPA, BRITTNEY ####[facility] [address] [address]DrLaura Rivera PROF 14(COMP METB)on 022 Albumin [Mass/Vol] 3.6 g/dL Normal 3.4-5.0 The [facility] Comment on above: Performed By: #### C MP, LIPA, BRITTNEY ####[facility] [address] [address]DrLaura Rivera Albumin/Globulin [Mass ratio] 1.3 {ratio} Normal [facility] Comment on above: Performed By: #### C MP, LIPA, BRITTNEY ####[facility] [address] [address]DrLaura Rivera ALP [Catalytic activity/Vol] 171 U/L Critically high 46-116 [facility] Comment on above: Performed By: #### C MP, LIPA, BRITTNEY ####[facility] [address] [address]DrLaura Rivera ALT [Catalytic activity/Vol] 35 U/L Normal 14-59 [facility] Comment on above: Performed By: #### C MP LIPA, BRITTNEY ####[facility] [address] [address]Dr. Hardeep Rivera Anion gap [Moles/Vol] 11.4 mmol/L [facility] Comment on above: Performed By: #### C ARGENIS LIPA, BRITTNEY ####[facility] [address] [address]Dr. Hardeep Rivera AST [Catalytic activity/Vol] 28 U/L Normal 15-37 [facility] Comment on above: Performed By: #### C ARGENIS LIPA, BRITTNEY ####[facility] [address] [place], [place] [address]Dr. Hardeep Rivera Bilirubin [Mass/Vol] 0.7 mg/dL Normal 0.2-1.0 [facility] Comment on above: Performed By: #### C ARGENIS LIPA, BRITTNEY ####[facility] [address] [place], [place] [address]Dr. Hardeep Rivera Calcium [Mass/Vol] 8.4 mg/dL Critically low 8.5-10.1 [facility] Comment on above: Performed By: #### C ARGENIS LIPA, BRITTNEY ####[facility] [address] [place], [place] [address]Dr. Hardeep Rivera Chloride [Moles/Vol] 100 mmol/L Normal 98-107 [facility] Comment on above: Performed By: #### C MP LIPA, BRITTNEY ####[facility] [address] [place], [place] [address]Dr. Hardeep Rivera CO2 [Moles/Vol] 25.6 mmol/L Normal 21.0-32.0 [facility] Comment on above: Performed By: #### C ARGENIS LIPA, BRITTNEY ####[facility] [address] [place], [place] [address]Dr. Hardeep Rivera Creatinine [Mass/Vol] 1.33 mg/dL Critically high 0.55-1.02 [facility] Comment on above: Performed By: #### C MP LIPA, BRITTNEY ####[facility] [address] [address]Dr. Hardeep Rivera EGFR-AF MAURITANIAN 47 mL/min/1.73m2 Critically low >=60 [facility] Comment on above: Performed By: #### C MP LIPA, BRITTNEY ####[facility] [address] [address]Dr. Hardeep Rivera EGFR-NON AF MAURITANIAN 39 mL/min/1.73m2 Critically low >=60 [facility] Comment on above: Performed By: #### C MP, LIPA, BRITTNEY ####[facility] [address] [address]Dr. Hardeep Rivera Globulin (S) [Mass/Vol] 2.7 g/dL [facility] Comment on above: Performed By: #### C MP, LIPA, BRITTNEY ####[facility] [address] [address]Dr. Hardeep Rivera Glucose [Mass/Vol] 108 mg/dL Critically high 74-[address] [facility] Comment on above: Performed By: #### C MP, LIPA, BRITTNEY ####[facility] [address] [address]Dr. Hardeep Rivera Potassium [Moles/Vol] 4.0 mmol/L Normal 3.5-5.1 [facility] Comment on above: Performed By: #### C MP, LIPA, BRITTNEY ####[facility] [address] [address]Dr. Hardeep Rivera Protein [Mass/Vol] 6.3 g/dL Critically low 6.4-8.2 Th [facility] Comment on above: Performed By: #### C MP, LIPA, BRITTNEY ####[facility] [address] [place], [place] [address]Dr. Hardeep Rivera Sodium [Moles/Vol] 133 mmol/L Critically low 136-145 Th [facility] Comment on above: Performed By: #### C MP, LIPA, BRITTNEY ####[facility] [address] [address]Dr. Hardeep Rivera Urea nitrogen [Mass/Vol] 23.0 mg/dL Critically high 7.0-18.0 [facility] Comment on above: Performed By: #### C ABAD MORE AMY ####[facility] [address] [address]Dr. Hardeep Rivera Urea nitrogen/Creatinine [Mass ratio] 17.3 mg/mg Normal [facility] Comment on above: Performed By: #### C ABAD MORE AMY ####[facility] [address] [address]Dr. Hardeep Rivera Pre-Certification Formon Pre-Certification Form [id number]#[id number]:12 7 Normal [facility] BOX TEST SENT OUTon 08-02-20 22 SENT TO REF LAB 08/02/2022 Normal [facility] Comment on above: Performed By: #### Deedee PINON #### [facility] [address] [place] [address] Dr. Hardeep Rivera CBC AUTO DIFFon 08-02-2022 BASO # 0.0 103/ul Normal 0.0-0.1 [facility] Comment on above: Performed By: #### RANDALL OLSON #### [facility] [address] [place] [address] Dr. Hardeep Rivera Basophils/100 WBC (Bld) 0.3 % Normal 0.2-2.0 [facility] Comment on above: Performed By: #### RANDALL OLSON #### [facility] [address] [place] [address] Dr. Hardeep Rivera EO # 0.1 103/ul Normal 0.0-0.7 [facility] Comment on above: Performed By: #### RANDALL OLSON #### [facility] [address] [place] [address] Dr. Hardeep Rivera Eosinophils/100 WBC (Bld) 1.4 % Normal 0.9-7.0 [facility] Comment on above: Performed By: #### RANDALL OLSON #### [facility] [address] [place] [address] Dr. Hardeep Rivera Erythrocyte distribution width (RBC) [Ratio] 12.2 % Normal 11.0-15.0 [facility] Comment on above: Performed By: #### HARI OLSONRO #### [facility] [address] [place] [address] Dr. Hardeep Rivera Hematocrit (Bld) [Volume fraction] 41.2 % Normal 36.0-48.0 [facility] Comment on above: Performed By: #### Deedee PINON UMICRO #### [facility] [address] [place] [address] Dr. Hardeep Rivera Hemoglobin (Bld) [Mass/Vol] 13.6 g/dL Normal 12.0-16.0 [facility] Comment on above: Performed By: #### Deedee PINON UMICRO #### [facility] [address] [place] [address] Dr. Hardeep Rivera IG # 0.02 10e3/ul Normal 0.00-0.03 [facility] Comment on above: Performed By: #### Deedee PINON UMICRO #### [facility] [address] [place] [address] Dr. Hardeep Rivera IG % 0.3 % Normal 0.0-0.5 [facility] Comment on above: Performed By: #### Deedee PINON UMICRO #### [facility] [address] [place] [address] Dr. Hardeep Rivera LYMPH # 0.6 103/ul Critically low 1.2-3.8 [facility] Comment on above: Performed By: #### Deedee PINON UMICRO #### [facility] [address] [place] [address] Dr. Hardeep Rivera Lymphocytes/100 WBC (Bld) 8.9 % Critically low 20.5-60.0 [facility] Comment on above: Performed By: #### Deedee PINON, UMICRO #### [facility] [address] [place] [address] Dr. Hardeep Rivera MANUAL DIFF REQ NO Normal [facility] Comment on above: Performed By: #### HARI OLSONRO #### [facility] [address] [place] [address] Dr. Hardeep Rivera MCH (RBC) [Entitic mass] 29.6 pg Normal 26.7-34.0 [facility] Comment on above: Performed By: #### HARI OLSONRO #### [facility] [address] [place] [address] Dr. Hardeep Rivera MCHC (RBC) [Mass/Vol] 33.0 g/dL Normal 29.9-35.2 [facility] Comment on above: Performed By: #### HARI OLSONRO #### [facility] [address] [place] [address] Dr. Hardeep Rivera MCV (RBC) [Entitic vol] 89.8 fL Normal 81.0-99.0 [facility] Comment on above: Performed By: #### HARI OLSONRO #### [facility] [address] [place] [address] Dr. Hardeep Rivera MONO # 0.7 103/ul Normal 0.3-0.8 [facility] Comment on above: Performed By: #### HARI OLSONRO #### [facility] [address] [place] [address] Dr. Hardeep Rivera Monocytes/100 WBC (Bld) 11.6 % Normal 1.7-12.0 [facility] Comment on above: Performed By: #### HARI OLSONRO #### [facility] [address] [place] [address] Dr. Hardeep Rivera NEUT # 5.0 103/ul Normal 1.4-6.5 [facility] Comment on above: Performed By: #### HARI OLSONRO #### [facility] [address] [place] [address] Dr. Hardeep Rivera Neutrophils/100 WBC (Bld) 77.5 % Critically high 43.0-75.0 [facility] Comment on above: Performed By: #### HARI OLSONRO #### [facility] [address] [address] [address] Hardeep Rivera Platelet mean volume (Bld) [Entitic vol] 9.4 fL Critically low 9.5-13.5 [facility] Comment on above: Performed By: #### Deedee PINON, HARIRO #### [facility] [address] [place], [place] [address] Dr. Hardeep Rivera PLT 200 103/ul Normal 150-450 [facility] Comment on above: Performed By: #### Deedee PINON, HARIRO #### [facility] [address] [address] [address] Hardeep Rivera RBC 4.59 106/ul Normal 4.20-5.40 [facility] Comment on above: Performed By: #### Deedee PINON, HARIRO #### [facility] [address] [address] [address] Hardeep Rivera WBC 6.4 103/ul Normal 4.0-11.0 [facility] Comment on above: Performed By: #### Deedee PINON, BENNETTRO #### [facility] [address] [address] [address] Hardeep Clark 08-02-2022 CNPN Telephone ([facility]) -- SYLVIA HERRERA ([id number]) 1945 F Date Time Provider Department 08/02/22 LOIDA MATHIAS [facility] During your visit today, we recorded the following information about you: Linden Faustina 08/02/2022 1:42 PM Signed Patient had labs drawn 08/02/22, uploaded to scanned docs. Loida Mathias APRN.CHIEF INTERNAL AUDITOR 08/07/2022 10:27 AM Signed Received outside labs drawn 08/02 -- FK 4.7 Cr 1.4 BUN 21 K 3.9 FBS 119 WBC 6400 Hgb 13.6 Hct 41 Plts 200 My chart message sent to patient. Advised no changes. Asked that she keep us posted re: if she will be transferring her care. Loida Mathias APRN.CHIEF INTERNAL AUDITOR August 07, 2022 10:27 AM Allergies As [...] mg by mouth three times daily. 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 Hardeep Rivera Calcium [Mass/Vol] 8.6 mg/dL Normal 8.5-10.1 [facility] Comment on above: Performed By: #### RANDALL OLSON #### [facility] [address] [address] [address] Hardeep Rivera Chloride [Moles/Vol] 98 mmol/L Normal 98-107 [facility] Comment on above: Performed By: #### RANDALL OLSON #### [facility] [address] [address] [address] Hardeep Rivera CO2 [Moles/Vol] 27.7 mmol/L Normal 21.0-32.0 [facility] Comment on above: Performed By: #### AKSHAT OLSONICRO #### [facility] [address] [address] [address] Hardeep Rivera Creatinine [Mass/Vol] 1.42 mg/dL Critically high 0.55-1.02 [facility] Comment on above: Performed By: #### Deedee PINON, UMICRO #### [facility] [address] [address] [address] Hardeep Rivera EGFR-AF MAURITANIAN 43 mL/min/1.73m2 Critically low >=60 [facility] Comment on above: Performed By: #### Deedee PINON UMICRO #### [facility] [address] [address] [address] Hardeep Rivera EGFR-NON AF MAURITANIAN 36 mL/min/1.73m2 Critically low >=60 [facility] Comment on above: Performed By: #### Deedee PINON UMICRO #### [facility] [address] [address] [address] Hardeep Rivera Glucose [Mass/Vol] 119 mg/dL Critically high 74-[address] [facility] Comment on above: Performed By: #### Deedee PINON, UMICRO #### [facility] [address] [address] [address] Hardeep Rivera Potassium [Moles/Vol] 3.9 mmol/L Normal 3.5-5.1 [facility] Comment on above: Performed By: #### Deedee PINON, UMICRO #### [facility] [address] [address] [address] Hardeep Rivera Sodium [Moles/Vol] 134 mmol/L Critically low 136-145 Th [facility] Comment on above: Performed By: #### Deedee PINON, UMICRO #### [facility] [address] [address] [address] Hardeep Rivera Urea nitrogen [Mass/Vol] 21.0 mg/dL Critically high 7.0-18.0 [facility] Comment on above: Performed By: #### E RANDALL PINON #### [facility] [address] [place], [place] [address] Dr. Hardeep Rivera Urea nitrogen/Creatinine [Mass ratio] 14.8 mg/mg [facility] Comment on above: Performed By: #### E RANDALL PINON #### [facility] [id number] Hardeep Rivera Tacrolimus Bld-ncon 2021 Tacrolimus (Bld) [Mass/Vol] 4.7 ng/mL Low 5.0-20.0 [facility] Comment on above: Order Comment: [...] Test performed by chemiluminescent immunoassay using [employer]. Performed By: #### 1 1253-2 ####[facility] LABCLIA [id number] [place] [address] [place] Giardia, Direct, EIAon 07-23 G. lamblia Ag IA Ql (Stl) Negative Invalid Interpretation Code Negative [facility] Comment on above: Result Comment: Perf ormed at: [facility] [id number] [place], [place] [id number] PhD Sommer Davis Performed By: #### 4 [id number], [id number], [id number] ####[facility] [address] [place] [address] O & P EXAM, ROUTINE, REFLEXo n 07-23-2022 Ova and parasites identified Concentration Nom (Stl) Comment Invalid Interpretation Code [facility] Comment on above: Result Comment: No o va, cysts, or parasites seen. One negative specimen does not rule out the possibility of a parasitic infection. Performed at: [address] [id number] PhD Sommer Davis Performed By: #### 4 [id number] ####[facility] [address] [place] [address] O & P Exam, Routineon 2021 Ova and parasites identified LM Nom (Unsp spec) Final report Invalid Interpretation Code [facility] Comment on above: Result Comment: Thes e results were obtained using wet preparation(s) and trichrome stained smear. This test does not include testing for Cryptosporidium parvum, Cyclospora, or Microsporidia. Performed at: [address] [id number] PhD Sommer Davis Performed By: #### 4 [id number], [id number] ####[address] [place] [address] Consent for Procedure/Surger yon 07-19-2022 Consent for Procedure/Surgery [id number]:12 7 Normal [facility] CMV IgMon 07-18-2022 CMV IgM IA Qn <30.0 Invalid Interpretation Code 0.0-29.9 [facility] Comment on above: Result Comment: Nega tive <30.0 Equivocal 30.0 - 34.9 Positive >34.9 A positive result is generally indicative of acute infection, reactivation or persistent IgM production. Performed at: [address] [id number] PhD Sommer Davis Performed By: #### 1 [id number] ####[facility] [address] [place] [address] Coding Summary.on 07-18-2022 Coding Summary. CD:[id number] Gh0bWw +PGhlYWQ+NN8JFGKrR13ocZZer I5SH6vFVT4OLRPQDHHHDZ1BXD5 jvUE0ADhhV3LnkiGu WhmroGRiME74CEt6LPA6aSgaJW wcaH8deBKkR4l6XdQnNK10bH14 CSbjBFVzSvX1GpMciualbYDo F6awCgAkoACbQyz+PHRhYmxlIH bsDSZxWEprHZBdCmJjbYxuUV3a Ck9sJOGqKOWpqRlpeJYmBoAx y7wvUXDwNXufAS7tnZciE5PukC M7RRIws8y1Mh67xDF+PHRkIHN0 hNnoMWiox659ExCpc5ahZQU3 lUZeRJdsZOY8B48al9X0BJWnYJ GwCCG5zBH8dS3uyApltxjaK8As gNAjYaV4IMQ0lVBdhD8qfLlk kuvzoZ3oZnb+V06AMB5ITUPTXF 4TGja3G3QkJtigkQL+ZF54RFGs SC16sYOjvNIvj4knuZl3EpZm UCBqQRZ9jUmsQOqki8PrSLJeM2 5uwHNvj6O9LPEpoYwltBYlCzYz mBY4qI0dWRqmpftse9mlyvuz Ilvfb4uncr70oQ44K00uEEarUH WjMBM9NZHgNXGrfVdfln8beM1l Ii8+MAjbp1kwq7urpCt0RdFz GNOjuzMgpIeyHVK5b9GtPm93S5 CuiOyll7CxYlg0oj32yOCnl3A2 mOE6SKegKISouK9bBEaxElH2 VVBrDuFksC57zRVdUKszRp3vrC ggeLhkOK9rGBFuhrumNSApxC5z OPYkuDMiiVekXZ4wHHYcjkxu d262QsNoZWJ8FACaiDHzJ8YrtF 9rZkSqEEYuZCLfK3NbfTYqVEpp V013OSwxGyA6YWWxboVzQ0Uc MDWgjPpmAwG4t9V6Tp4Mg9Cyyg auJCW9MGttNQW7HaP9UwOgXkN6 X2JrQie4CXIgzOysLC0rI4Nu SWSshplhneprkOQ6XPQhHBFjbQ 43tANqDHhkWr8ob5Z5p092RLCj CGPjjB48Vk8jmCmoNYOtrLWT kO3dfsstk5zjngsvOpBwPUBxQP t4OEg6XUGjtZeoCnZuWAO9XdW7 SBH7zFSugN3ffHrsuagfpP6h Oyc+W56lkC8rFBL2HYX0jeaoWF DuljZlWG05HB71I4KyZrgazXDr bGU+BUNnphSmjIrxTN5pReOk h3hnj5PuILhrZ5NhNPStANlqLo h7BTNrVTJ0fYV9xO0oFNGmXRqp y4P8hGY6R8QrunSpsf8eo4ay HNQxIQgpD88baTIsp7C1BUUeaJ F2LDLpfTebWyGcbL63Xbl+PGNv wQygj6RvYdbgj0odk0pprQb8 JlTdGWYjpwSuhMglIXA8i1KaYb 71L12iBDfhIZKwYNEmEMNlXYNv qTqpms1bqA4rSn3+PGNvbCB3 pXL6dF7aRCAxAoT2IIdnR651Tr MsgQNmExghy7fvn0lreKm4AhTu UAJxnoBrvYgyRSG5m2FoPn20 W02gHOgxLZDmLLYgVMTpRIIcxU nwri9spW2rCe2+BE8gu2bnkz50 dS46oJL+CEGaXKW7fSwmLQog QBRvvE9aVJynWsQ2HCHkNhVzkO 95mMFvZYqxQa6npVbgbCeiJE3n XBMkixkeu721SyQsi4aeIJEg rMNjZZkuNIB5I63kd2T0WTTcGD PtLJT2zVM0rI6bwTpzpfjctACt aDnynvHfbSveVQoeQRhlT257 IHRvcDsnPlBhdGllbnQgTmFtZT c0T8TjOnm3DUXzrRvbLZ3hmMWv CQroKm7heOfgvTszXD3eSWIp fvawf941OoNgx8psHCSxnWAlWR zaLGT1U89cr6M5WGIbPWUnAWK0 yUI5tA9qhPwhrfpnkHQbiAsg wgVykAayZZosYTucS503RTXlrY csReNwgjSbDUStuVS4KE10WD63 rNZop4A5ySZ9T0YnJMHwrnfu hhepqQZ2OSAzSFWghK01Du0lqY gtVq3jXOQcQGO0XLTncFNuX5Vc pC4hIwNwVAWiBKInZ8IuzFHa TFykZ867TIbjYjF8KWQhmfBmS4 FvGPWlmKytKaB8i3L8Mc8SK6P4 YE22EA91bRGnb0I4wJY0B0Nn ARWwkebcwawzlVZ8OVIiSFNmbO 31Wg9xdYyvSw9aVFVoPJB2PANf gBEfW6JvdS8yYvArUHOqDWQa I8MiqKJhHFmuH812CQhnLkO3PT McwnZzX9TtMBFiuKrsUzN2h1P4 Nu0AIZv4DC75FJ73pLKpq3E0 zRM8Q4GsGUZeutkcxjxiiXS8KZ MbOUPraV56Vv5mwTecRg6yGIDg RLP1KUSbtYFiR9NuoG9cBnBh VDAzNWRrB7LbyYBpLNbzV190QD ulJhI4YNFzntOwD1EhQGYgqLhc GkC5h5O1Rd6MGUFxOR17OIP8 sAO5NI65EL38V7MmAdefyXBjwK U+PHRhYmxlIHdpZHRoPScxMDAl VqHuyIiwAG8lPk8yCNEfYQFf uPplbJIjNkXtd9gsEUKeHYpuJI 3gkBkqM2ZtqOF2ZGHar0o9Ka60 T48xN9YcvDP+XLMriTK1aXO7 mO0rQrXmHtG7QZenV335FlJtcK WqWpgfe7akb0qupZm2VsG4LFYy jyZehHknUHA3l4NxYk90Q50x IHdpZHRoPSIxNSUiIHZhbGlnbj 2lfF7oRy9+WJJtxES4hGR6nE6v OtQfQpE0VLhvQ406JqKacRBm Gjljo8dwr8wqwLw5WhLxKNIoyq YxgWxxYGM1c1ChNg81K1FyuUju p5KaGrb2vn98vIFns2I9eAY6 V2TgGMGyhvbqpYBgcWyuEM1sFP JvudlgKNWdiU6gRYYjP0y0IuPf TnU2CQivX7LfefP4SGArnZEd VRaoOCC8E01zy8W8OCLgIEGwXM W1jXY7cY2vkNpxdtquhSLzmNgq omJtdTidNSwvYZgjN362EJZx xBczYLGniM6fPYYyyOBrkXrpTJ 4wNTBpbjsnPlBFTkNFLCBISUxE ESMFIS80FC57fIJsn4Y6eBX7 X7RaEELhzctxxztmwYF7XQLaPN DynE48kIXhSIytSw7qf7K7u492 MEBcDDKvhP65Dj8gsIsnYKQh oWHVzI1spgwbk4clxcbhLyAcHJ TeBQg5DLp6JKVeoOgvSmMoGAG4 VbE4GLR7cOLbfB3ijQvyrsaa dK4gFwe+JAKkClWbCZk0STzcmE Q+EEUaTYK5hPhuQSqxVMYfgC1m HRXrD3k5ZtPnTyU8RWlyK6Me YVQaloqwWp53vZ3dDhBoGfV0EH szW9ZdyvU4SHEjjHJhTYqkACN2 E90pa6Q1SIXuSMSgRNL5iRB9 hZ1myEhskyarzPYnoGypenDhfR atSPypXLobD933GUFvmYgwEuo7 UPvwCNUkGC60SK38gOQow1N8 wHL4D4NrGKHzbevvhhwxpQK7UX SsEBYwlZ07qXKzKQovHl5hr1L2 m068CNRaNOQhpM78Ag1cpGwg IVEuyFEWxV2ujhkpp4bebpqpEu FqACRhUGr5KJq7XLYauMuqRhMt FIV7DbM3DRP1jZMwkW3sqEkz mzwioG5fKps+IuSmPAtiOM93ZI 53eQTum9U6gUI6A4QeDZKvypyx uizxvVU7ZCEsJOPnfT95yDKr BOreIv8ni5H2i715DUYgXMSdgW 08Lp8xrTasVEKttPZTsN6dczwt m4cvgpftSsAaJWYkEOu7YWu7 AMTppSnyKlCzCXI5AsK6YMS1fT DmuI2atXvyrlskaF9vAxu+T3V0 bWJ2fVNdeUiotFI+QN00vn31 B9VoIontDgq3SIKfQEZ0sLQ0aE 2rKFXiVOmgi0H5yWM6D0QegpUg fk8vn6ogNRRjDEroH14jbPRo x6P7BXQftHX2QQVjkMceRxYkbG 93Oyc+JYRzoArdm3EzLefqp7yj c8ptmHj6PdTlKIPrlkYuoVxy STH3n8IsZs12V78cKNjjMOKaVJ BuTDNtKZOjsEryaa4rvE9eFc3+ MMGkgCO6zPT6zL6qXpNaNyH3 GQpdX389KpGvtZTuQtxan3agq4 kjfAk9KqOnIUOhkmMrzBtqGOT5 d2XaCu52J3DauBcou0KfBvl2 ot74qMZja3K8fAN8L5ImJNNxgw jpeCRnfWdjNP2ePNGtfykfKTSf tI3eVPEkO2k3GcEyCgO2RHmp Q3TsnuY7KYIkyVGxCWPjsNTHkW 4jgtyik1ftznuhFqOsXHMbDBs6 DVy6ZNVfrOagAnSyRGP8MeR2 DJL8cXGouD5drCvpfqiswO6qZl c+KJe3q6sdrLOfRG2eePH3XN94 DW17sFLvp2T6qXQ4K4FzSHGm mdjqgtmkzIQ2LNTrKZEsjP54In 9tyWrhMf6aEPOwJFD9RODqrDFc F5CbaN8hPySbVSQdHSGbG2Eo oMVnGLhpX461SAebGgY8LUIood ObW9QdAFLbaYgxWbB0t6M7Ek0F DX69AK78MJ37rQClg6B0xEL4 L2CxIDUrcopizvvokPL7UAXxIQ SfdY49El4gvSjuMq4dWOKmRZN3 ARCijTEbS6YrvT2aYjQgCFXe BZKxU7SgdJYbVNnhD051QOsxUr E0AJIyhqLfM1XkQYGalWtmLuS2 z8A0Hx4ERr89KU45WO29zHKt s8P4wPO3X4UiGXFazfjrnvclvN W3XRDfSVVgxZ26Nb4uzGgeEc7w TVAbEPO7RDQqxBXqK7GroG5x BbGmWEWlLRLcL6LjtGNmCNhtG2 20XZekDsB2OAZzqjXhK4XdWIOk hNtqQsL9r9O6Ws0XURcymmm2 B1XtGjwxpYF+EE86NFYpMX36hE KsfUSdb4twhVa9LqKnDWKuDCR9 dBixQFccj1QuEOXwW14frPNe c2U6 (more content not included)... Normal [facility] Coding Summary. CD:[id number] Gh0bWw +PGhlYWQ+WU4MQWQyZ25lbWQfp H2FB3lIAU2HPGLHOIVTZV2YXD6 rkIY8KMvrS1TsywBj SmgisDMaKP87UGd2LKH1mPizEC fzrI3ydDJlS4p5SmQvID18aP39 JWnbJDNtNfI5SpEpweyqnRNc U2yrOjNwpJYkKds+PHRhYmxlIH poIVIdCTenGWLkSaIlvAimBN7m Kf6wIHRuJWSvvYvjwZIcCgZk r0pkZUEaVJjlYE9aqStcW8ObzL D9NYMbo2w2Jd51oAA+PHRkIHN0 xBjkVDhsq153JvQue5acZFO3 kLFhJRyjEDQ2S73rb3G6XSBkOM TsDLM0vFH5sT3ntGcmgcuoI7Lp bKOjSmT5KIM3rNLmcN3dtLbk efuekQ0sQxs+D28PSH4CMIKOFY 4KTeg4K0GzIdxneZX+UH16WTZj AM26fEHnrSCek1imsBb9SrMz VNFoAJW9kUsaFPjyc1VzGTMzG2 9cdCLbn5I2XQCnqDnppMTgKfEb hSH6rN8lQQingtbsk1skjywq Kkxno5dajl91wZ89K61yMXmkWW MeGMD2MTQfYTEzdLocjy3qhB1q Ii8+EMmzr1qxc8ywtOu0FrDc QYCdayGbfQdjPDR4t7ByHa36K5 EuqOvoz0HzQyi8mg23tPIvb9V8 gER4IUhgQLTnbY3tWYfiAgC4 TMXxIrMxiT77yDRiWMnfNw7taI odbFlkQO5rUJAjpeimBSUfxQ4l LPMumFPlmIlgWI6gWSXdhipv z895IqFrDPX0VPZhsJRpK2RciR 9tFqOuKAPrLDLtN0WxwPDfOJhp E958AXidAtC0KDSvbgOdZ6Qo TMAtmImoJqB9z2B1Gy5Cd9Gbxo awOIO9SMbkSVR3BeB3KlJaMjY3 T2WfOar3DBRjhBpmKW0wC7Hy WDClaruwumtgjAC7RSMjOAOotJ 15sPUeKMstWh5aw5R1t836DTQf IHFrfX85Dv1qaObaLJOpyRGR sL6zqaozv0aadwupCxWtPHKfXO p6GJg9APFofZflQsMkHFM3PgJ8 HKI2fLQhxP0jjQgzadsuoX6l Oyc+X29hmS7xXPV1MYY4ozeoJY RfjeAgBP41SH61I9IgUppraAPs bGU+QTQxkyIysEpdRQ8aSaYh q4qou1GyMSegM6ZmLCYaPXeeNh t3NRPxJYV3yOE2nR3gYUJxFKeo l7I7iEF5W3RvjaOmor8zq0ti ZKAkMCfqL33ffIUqc5Z0CVVehP K4TBRzwQigXpFawP94Sga+PGNv bZijh9FtKrrum1qnp8tyzUo2 OxRmNTMhbvCmlCcgAQH0w6CmRz 67X52pXXstLZSwGHQnVDXsYNIp tZsurt6msX3cVu7+PGNvbCB3 xTZ5uD0iFFGeDxQ1EGijP438Iq WdiGScJibtk0ysr0jwhTr4SsVx NTEoxcUzvLngGTK5k9QoVy85 Z17kIAqcDFCjVSWiOUYiOLHgtM xmdl9ibE5kCz0+ND2dv2krxk32 oN78nAD+COFxCTW3bAfyWLsu VSKxuI1mRPmzOjO1WPRbQuTuwX 17lRWoWCgdKm0ekVgjdEpnNB7o UFEbyrwvn538TtVio4ovAWBi ySAlPXqnUBX5P19oj3I2NWExNH NfCIL3qNM1pB9ipIlmujxjaLDv cEvrjxMjvCqrPRyeMZcjO705 IHRvcDsnPlBhdGllbnQgTmFtZT i4A8QzLps9XROdwWvcZH8qzPNj UYrkGy9ucQvqsJuxSF6sBLAs mdigf104FhSzq6edNMVvcOGmLT llHLD8K17js3Z2MSCeZZZpEOD4 aWQ4tW6oeVmmodyuvQHxvZey hjLvfWgrADbvHEzeV029FFJbvB jhZvIrbrCxGBKckXS9DB48YZ10 pEToc4A1hIH7D6FhNXFcszbr peulpCP5NGHyIFXswL19Hr1pwW ydQm4hLHOuJUR9RFWuyWWlV2Yv mI3lWoUePHJsTXHgA5SaxEXu GDdeR263TQqoVyF2NMYxxbJiQ7 LmGEMnrZroLiT1i4K6Cb4IE6B1 PD21JV45aEBvl9D3nAQ1R6Qk MSRnoeemczhgzMJ5HQYgNXEllJ 18Gn1hhPrtNc1cXJHiTSM5LILw lUUeQ2SjsX9fAiEeCIFlWFFi E9DdfZImAOalI020HPmyAcQ9CW ZvktYbR5LhWZCwsHupXaB3a0I4 Qz8UKGa7AS31DQ58iWJaf9K9 wVV7M2DpELPicyeylwyqtPI7WP OyMHIwmI76Pk0icPkcVh4oCVVj YMZ1ELObxLTiD3VaaC9mZdXs IVZqAHSjZ9WozULcSGkhA669UD qlZyD3AMFsrjVyT6FfHCNcnRqb OzP3c2L6Hr6PTZKwWZ67JYN1 sUS9OR91AE07J2HaCgkhwCBwvL U+PHRhYmxlIHdpZHRoPScxMDAl ThGmaNaiHW7iOl7pWACkQXFw tSbktGOnKtCnu9sdNFWoXLvtNJ 4zhBveN8HauKC6YENzq8g2Kt15 Y64sE2EmeIA+OPPbrUV8aRQ3 oU0yTcXvRcF9NFanG304ReObpJ NnFrbny8feh2dmsVw4WbY6VKPe loUbqRynAAS0v4BnAs59M16q IHdpZHRoPSIxNSUiIHZhbGlnbj 2rrU1dAg2+YBWktLU1uHY6qM8a VjQfWgJ3FVbsR306BzBatLYo Hlkwp9qph1cyqNc6LsRvCOTqin BukAtmZMX3j2VfTs38Z0UpoLmx a1WiXtp7ai53vYQgc7B9oNN7 J8NiFVArhgzixWNasJsoIS1dDT RmqhkxZSEwfT1yZRBlA7x3DpRn ObL8CZzgR8EdfkR3JULypZAw LMmwFZT7D07et0L5GYAcYJRoPT E4tZR5dG3bwOlufaafrNXetUbg ajGfyKhxSAxiCWhzY922LTEa kJbnDHSapW5eZCVnyCOsbDrqYE 4wNTBpbjsnPlBFTkNFLCBISUxE SFTPPY08KT04oMErq3Q1xLU7 H9QgRLUblqzypfdmvSQ2JBJfPR ScuT57gBYeZLriNr4xo8Q9n139 EWJfUJXhnT92Pt3wcVnuQDHb qOFMfB3omqzee8hzegswWrRkWW XqYZy3CCp0IKNjjQczIzEiGFU5 JrW3UCY2qNRyhM5guUggemcy qB1iHbe+FRNhBkAbMXc7MFobyE Q+LKCaBBG3yJfkICocTSYbiK6i WDEmR9e5GyInWmK1YPsdQ3Hg ILAslnfgOj20fL6bWcCmIxW1SF lsU2DqvbL3TMMwbMRrIJyeEVL5 M66rd8B7SLHkODPiEUJ0mSS3 pY0cfTsmcnwjzRLyxVfcfcBqaB csAMagDAjlL571YFThzOttGts0 PLxqZULbYY60RQ28qOHhg1Q2 cYW0J0CxHEUsyntoairutGH1PX BkTNRmsT38kFRuIQioSk7ya0R3 j036ONCuGMBtnF45Yy7ecOyw ELZgdLCYoS2trxwmk4kmlkqzEd UuKXKoRJo0LEb2SOPqjMskPuXl AJB0WgH4YWZ8zEZkgZ7zoRye tkqcpP6aFla+SgPfUFroXN24VK 92cILfv5U0qZW7M4GhMYHdgrma mjsfdMB8ASFsCMGroM80sNZi MDvtBo3sh5H7m594PVWkNEMypK 90Sq4qcKyhPBKwoZYIrT7sajal r0urccrbPaUgCFAzPVq6LJg3 ICQacKreUvNsTPT3JzI8PHF7tC YiqP8pnFdsnwclpN4uKqs+TGFi NCMqi2Oki0YnDJ32QB31B0Zn PjwvdGFibGU+PHRhYmxlIHdpZH NnPHzbHUBkZxKxcGumSE7qTp6v PYFhUZKwwVdaaCXpQvJgg4qw ABElQRkrUD9plLgkO2LniGM0ZB Hft8t1Hz41V34tC4QysMB+PGNv bWE8nHX6lJ5vMbXnDvN9XXcs L632KgKciVJmTahxn3daa2lssX e6BdSmERGehnKrkZkiAOK5m4Av Gp12L62lTJesUNQlCZQeCIPd JHBwuIilfo9pxT1iJa1+PGNvbC B9rDK2iN2wKpXaOwP1QBahL304 XrBheSQgZxgeK01kW5LdtKE+ UJEoAwc3KLNzzKgpXC6txFBoVZ rrXa3cTGA4RlTrFlNnKFggO3Ew WAQcialdpnmhpOV5MVQzDZMx tQ98Yz6fbGntPm3wKKNaOML5AB WoxUCcU4NjbY8uNwXsIJDrMDPq X0UljAGdHTqxZ369KCujKcT8 NNAdkqKeA1QgQTYhbAaqBrG7n7 R8Li4LyMytlFFcUY9kSfVoUJl4 E8ZuUse3BPBwnYagEU0owKLm FMmkOa7vrPxncLtlAK6aGAThny mcb845NfVpv2haPHSrxQHnIVwp DWA4M97ww1F7OUSoONXuREO3 dBO1xN8noLkopjpppINyhCsibg QdzIewFExmIXrhY797DULosHmt QfRNTmi0U7FoDxs7DYFswAdh WE8fhSIbVOrxJi2sfSkzePsjVR 4wCCYwfcvia829NuEwd6ytKNUa qQZjLLwbTJY3V58xe3N0JUQn PGYlNMR1qVV6jZ5eqJqwgmjrpO QznSbjdiHakIvwQZrpDQdaA364 ZSIhgEiuNa3CUcj1V5JgBau4 ANAhwFbtXZ0efDKaFKkxCv5knX blgPsjZT5kSCHzasvnl053XsYf t0vjUAVqfFVuTMcxUMF2S80z o2R7ZVHvCOPgLTF2uCB5wI7shC lnbjogbGVmdDsgdmVydGljYWwt WUbgQ997JJTjdYbhZqFizBEu OjwvdGQ+OB36zh74A9XlLpheNe l7NASlPQZ3qUZ5yV6yVDDmBPsy v7S3xYZ9R1ZfgfFysf6zk0xl YXBz (more content not included)... Normal [facility] Enteric Panel by PCRon 07-18 C. coli+jejuni+upsalien sis DNA ULICES+non-probe Ql (Stl) Not detected Normal [facility] Comment on above: Result Comment: Test ing was performed utilizing reverse high lift operator (RT), polymerase chain reaction (PCR), and array [...] nulcleic acid test. Performed By: #### 4 [id number] ####[facility] [id number] [place] [address] E. coli stx1+stx2 genes ULICES+non-probe Ql (Stl) Negative Normal [facility] Comment on above: Performed By: #### 4 [id number] ####[facility] [address] [place] [address] Enteric Panel by PCR Negative Normal [facility] Enteric Panel Intrl QC Pass Normal [facility] Comment on above: Result Comment: Test ing was performed utilizing reverse high lift operator (RT), polymerase chain reaction (PCR), and array [...] 1 and 2. Performed By: #### 4 [id number], [id number], [id number], [id number], [id number], [id number] ####[facility] [address] [place] [address] Norovirus genogroup I+II RNA ULICES+non-probe Ql (Stl) Detected Abnormal [facility] Comment on above: Result Comment: Resu lts Called To [facility]y Elizondo for Dr. Jama By [facility] And Read Back For Confirmation On 07/18/2022 08:49:23 EDT. Performed By: #### 4 [id number], [id number], [id number], [id number], [id number], [id number] ####[facility] [address] [place] [address] Rotavirus A RNA ULICES+non-probe Ql (Stl) Not detected Normal [facility] Comment on above: Performed By: #### 4 [id number], [id number], [id number], [id number], [id number], [id number] ####[facility] [address] [place] [address] S. enterica+bongori DNA ULICES+non-probe Ql (Stl) Not detected Normal [facility] Comment on above: Result Comment: This test result should be correlated with clinical presentations and medical history by a healthcare provider to determine its clinical significance. Performed By: #### 4 [id number], [id number], [id number], [id number], [id number], [id number] ####[facility] [address] [place] [address] Shigella species+EIEC invasion plasmid antigen H ipaH gene ULICES+non-probe Ql (Stl) Not detected Normal [facility] Comment on above: Performed By: #### 4 [id number], [id number], [id number], [id number], [id number], [id number] ####[facility] [address] [place] [address] V. cholerae+parahaemoly ticus+vulnificus DNA ULICES+non-probe Ql (Stl) Not detected Normal [facility] Comment on above: Performed By: #### 4 [id number], [id number], [id number], [id number], [id number], [id number] ####[facility] [address] [place] [address] Y. enterocolitica DNA ULICES+non-probe Ql (Stl) Not detected Normal [facility] Comment on above: Performed By: #### 4 [id number], [id number], [id number], [id number], [id number], [id number] ####[facility] [address] [place] [address] C. diff by PCRon 07-17-2022 Clostridium difficile by PCR see comment Invalid Interpretation Code [facility] Comment on above: Result Comment: [...] its clinical significance. Performed By: #### 4 [id number], [id number], [id number], [id number], [id number], [id number] ####[facility] [address] [place] [address] Fecal WBC Lactoferrinon 07-02 Fecal WBC Lactoferrin Positive Abnormal Negative [facility] Comment on above: Result Comment: The semi-quantitative detection of elevated levels of fecal lactoferrin is a marker for fecal leukocytes and an indication of intestinal inflammation. Performed By: #### 4 [id number], [id number], [id number], [id number], [id number], [id number] ####[facility] [address] [place] [address] Consent for Treatmenton 07-02 Consent for Treatment [id number]:127 Normal [facility] Gastroenterology Office/Clin ic Noteon 07-15-2022 Gastroenterology Office/Clinic Note Chief Complaint f/u ER- abd pain, diarrhea and vomiting HPI Staff This is a 76 year old female who presents today for a referral by Sue for abnormal radiology testing. Patient seen in [facility] 01/2022 for complaints of diarrhea, abdominal pain and nausea.- CT and labs completed History of Present Illness Sylvia presents today for abdominal pain, diarrhea, and vomiting. She was recently seen in the [facility] emergency room with abdominal pain, diarrhea, and vomiting. She notes that she had a heart transplant in [place] in 2017. Afterwards she experienced diarrhea which [...] She was prescribed Creon 24 mg at [facility] in 2017, due to being diagnosed [...] by h (more content not included)... Normal [facility] Comment on above: Result Comment: [...] insufficiency Pancreatic lesion Valvular heart disease Normal [facility] 07-05-2022 CNPN Telephone ([facility]) -- SYLVIA HERRERA ([id number]) 1945 F Date Time Provider Department 07/05/22 SHO CROWLEY [facility] During your visit today, we recorded the following information about you: Sho Crowley APRN.CHIEF INTERNAL AUDITOR 07/05/2022 10:48 AM Signed 07/03/22 labs: FK: [...] care with another team. Sho Crowley APRN, CHIEF INTERNAL AUDITOR Pager: [phone] July 05, 2022 10:42 AM Post Heart [...] transplant. No Dr Ellerp: Rfl: TACROLIMUS/FK-506 BL [[id number]] Order #: [id number] FUTURE Prescriptions as of 07/05/2022 - tacrolimus [...] mg by mouth three times daily. - hlqgbk-bvxkaupv-osutxgb (CREON) 24,000-76,000 -120,000 unit cpDR Take 3 [...] 09/02/2019 A (more content not included)... Normal [facility] Rojas BOX TEST SENT OUTon 07-03-20 SENT TO REF LAB 07/03/2022 Normal [facility] Comment on above: Performed By: #### E RANDALL PINON #### [facility] [address] [address] [address] Hardeep Rivera CBC AUTO DIFFon 07-03-2022 BASO # 0.0 103/ul Normal 0.0-0.1 [facility] Comment on above: Performed By: #### C BC #### [facility] [address] [address] [address] Hardeep Rivera Basophils/100 WBC (Bld) 0.3 % Normal 0.2-2.0 [facility] Comment on above: Performed By: #### C BC #### [facility] [address] [address] [address] Hardeep Rivera EO # 0.1 103/ul Normal 0.0-0.7 [facility] Comment on above: Performed By: #### C BC #### [facility] [address] [address] [address] Hardeep Rivera Eosinophils/100 WBC (Bld) 0.9 % Normal 0.9-7.0 [facility] Comment on above: Performed By: #### C BC #### [facility] [address] [place] [address] Dr. Hardeep Rivera Erythrocyte distribution width (RBC) [Ratio] 12.2 % Normal 11.0-15.0 [facility] Comment on above: Performed By: #### C BC #### [facility] [address] [place] [address] Dr. Hardeep Rivera Hematocrit (Bld) [Volume fraction] 42.3 % Normal 36.0-48.0 [facility] Comment on above: Performed By: #### C BC #### [facility] [address] [place] [address] Dr. Hardeep Rivera Hemoglobin (Bld) [Mass/Vol] 14.0 g/dL Normal 12.0-16.0 [facility] Comment on above: Performed By: #### C BC #### [facility] [address] [place] [address] Dr. Hardeep Rivera IG # 0.04 10e3/ul Critically high 0.00-0.03 [facility] Comment on above: Performed By: #### C BC #### [facility] [address] [place] [address] Dr. Hardeep Rivera IG % 0.5 % Normal 0.0-0.5 [facility] Comment on above: Performed By: #### C BC #### [facility] [address] [place] [address] Dr. Hardeep Rivera LYMPH # 0.8 103/ul Critically low 1.2-3.8 [facility] Comment on above: Performed By: #### C BC #### [facility] [address] [place] [address] Dr. Hardeep Rivera Lymphocytes/100 WBC (Bld) 10.9 % Critically low 20.5-60.0 [facility] Comment on above: Performed By: #### C BC #### [facility] [address] [place] [address] Dr. Hardeep Rivera MANUAL DIFF REQ NO Normal [facility] Comment on above: Performed By: #### C BC #### [facility] [address] [place] [address] Dr. Hardeep Rivera MCH (RBC) [Entitic mass] 29.7 pg Normal 26.7-34.0 [facility] Comment on above: Performed By: #### C BC #### [facility] [address] [place] [address] Dr. Hardeep Rivera MCHC (RBC) [Mass/Vol] 33.1 g/dL Normal 29.9-35.2 [facility] Comment on above: Performed By: #### C BC #### [facility] [address] [place] [address] Dr. Hardeep Rivera MCV (RBC) [Entitic vol] 89.8 fL Normal 81.0-99.0 [facility] Comment on above: Performed By: #### C BC #### [facility] [address] [place] [address] Dr. Hardeep Rivera MONO # 0.9 103/ul Critically high 0.3-0.8 [facility] Comment on above: Performed By: #### C BC #### [facility] [address] [place] [address] Dr. Hardeep Rivera Monocytes/100 WBC (Bld) 11.1 % Normal 1.7-12.0 [facility] Comment on above: Performed By: #### C BC #### [facility] [address] [place] [address] Dr. Hardeep Rivera NEUT # 5.8 103/ul Normal 1.4-6.5 [facility] Comment on above: Performed By: #### C BC #### [facility] [address] [place] [address] Dr. Hardeep Rivera Neutrophils/100 WBC (Bld) 76.3 % Critically high 43.0-75.0 [facility] Comment on above: Performed By: #### C BC #### [facility] [address] [place] [address] Dr. Hardeep Rivera Platelet mean volume (Bld) [Entitic vol] 9.5 fL Normal 9.5-13.5 [facility] Comment on above: Performed By: #### C BC #### [facility] [address] [place] [address] Dr. Hardeep Rivera PLT 191 103/ul Normal 150-450 [facility] Comment on above: Performed By: #### C BC #### [facility] [address] [address] [address] Hardeep Rivera RBC 4.71 106/ul Normal 4.20-5.40 [facility] Comment on above: Performed By: #### C BC #### [facility] [address] [place] [address] Dr. Hardeep Rivera WBC 7.6 103/ul Normal 4.0-11.0 [facility] Comment on above: Performed By: #### C BC #### [facility] [address] [place] [address] Dr. Hardeep Rivera CNPMary Kay 07-03-2022 CNPN Telephone ([facility]) -- SYLVIA HERRERA ([id number]) 1945 F Date Time Provider Department 07/03/22 SOY MCCANN [facility] During your visit today, we recorded the following information about you: Linden Faustina 07/03/2022 1:02 PM Signed Patient had labs drawn 07/03/22, uploaded to scanned docs. Allergies As of Date: 07/03/2022 Noted [...] mg by mouth three times daily. - snoyny-ksrhyqzg-cvgsuwp (CREON) 24,000-76,000 -120,000 unit cpDR Take 3 [...] Status:Closed by LINDEN WEEMS on 07/03/22 Normal [facility] PROF CHEM 8 (BAS METB)on Anion gap [Moles/Vol] 12.9 mmol/L [facility] Comment on above: Performed By: #### Deedee PINON UMICRO #### [facility] [address] [place] [address] Dr. Hardeep Rivera Calcium [Mass/Vol] 9.0 mg/dL Normal 8.5-10.1 [facility] Comment on above: Performed By: #### Deedee PINON UMICRO #### [facility] [address] [place] [address] Dr. Hardeep Rivera Chloride [Moles/Vol] 98 mmol/L Normal 98-107 [facility] Comment on above: Performed By: #### Deedee PINON UMICRO #### [facility] [address] [address] [address] Hardeep Rivera CO2 [Moles/Vol] 28.1 mmol/L Normal 21.0-32.0 [facility] Comment on above: Performed By: #### Deedee PINON UMICRO #### [facility] [address] [address] [address] Hardeep Rivera Creatinine [Mass/Vol] 1.64 mg/dL Critically high 0.55-1.02 [facility] Comment on above: Performed By: #### Deedee PINON, UMICRO #### [facility] [address] [place] [address] Dr. Hardeep Rivera EGFR-AF MAURITANIAN 37 mL/min/1.73m2 Critically low >=60 [facility] Comment on above: Performed By: #### RANDALL OLSON #### [facility] [address] [place] [address] Dr. Hardeep Rivera EGFR-NON AF MAURITANIAN 30 mL/min/1.73m2 Critically low >=60 [facility] Comment on above: Performed By: #### HARI OLSONRO #### [facility] [address] [place] [address] Dr. Hardeep Rivera Glucose [Mass/Vol] 114 mg/dL Critically high 74-[address] [facility] Comment on above: Performed By: #### HARI OLSONRO #### [facility] [address] [place] [address] Dr. Hardeep Rivera Potassium [Moles/Vol] 4.0 mmol/L Normal 3.5-5.1 [facility] Comment on above: Performed By: #### HARI OLSONRO #### [facility] [address] [place] [address] Dr. Hardeep Rivera Sodium [Moles/Vol] 135 mmol/L Critically low 136-145 [facility] Comment on above: Performed By: #### HARI OLSONRO #### [facility] [address] [place] [address] Dr. Hardeep Rivera Urea nitrogen [Mass/Vol] 24.0 mg/dL Critically high 7.0-18.0 [facility] Comment on above: Performed By: #### HARI OLSONRO #### [facility] [address] [place] [address] Dr. Hardeep Rivera Urea nitrogen/Creatinine [Mass ratio] 14.6 mg/mg [facility] Comment on above: Performed By: #### HARI OLSONRO #### [facility] [address] [place] [address] Dr. Hardeep Rivera [facility] Tac[facility]imus (Bld) [Mass/Vol] 12.4 ng/mL Normal 5.0-20.0 [facility] Comment on above: Order Comment: [...] Test performed by chemiluminescent immunoassay using [employer]. Performed By: #### 1 1253-2 ####[facility] LABCLIA [id number] [place] [address] [place] MG MAMM SCREEN 3D TRISHA CADon 05-28-2022 MG MAMM SCREEN 3D TRISHA CAD Patient: SYLVIA HERRERA Exam Date: 05/28/2022 : 1945 Gender:F Ordering : DR TAO ROONEY . Admission #: [id number] Family : Order #: [id number] CLICK HERE TO VIEW EXAM RADIOLOGY REPORT [...] Ibrahim MD on 05/28/2022 at 10:20 Normal [facility] Physician Referralon 022 Physician Referral [id number]:127 [facility] 05-08-2022 ODETTEN Telephone ([facility]) -- SVETLANASYLVIA BELL ([id number]) 1945 F Date Time Provider Department 05/08/22 LOIDA MATHIAS CARD [facility] During your visit today, we recorded the following information about you: Linden Weems 05/08/2022 11:50 AM Signed Patient had labs drawn 05/07/22, uploaded to scanned docs. Linden Weems Administrative Weigher Bulker Loida Mathias APRN.CNP 05/08/2022 3:21 PM Signed [...] transplant. No Dr Ellerp: Rfl: TACROLIMUS/FK-506 BL [[id number]] Order #: [id number] FUTURE Prescriptions as of 05/08/2022 - tacrolimus [...] mg by mouth three times daily. - hbkaar-yqllskrv-tsnlrly (CREON) 24,000-76,000 -120,000 unit cpDR Take 3 [...] 05/19/2014 [facility] (more content not included)... Normal [facility] Rojas BOX TEST SENT OUTon 05-07-20 22 SENT TO REF LAB 05/07/2022 Normal [facility] Comment on above: Performed By: #### E RUR, UMICRO #### [facility] [address] [place] [address] Dr. Hardeep Rivera CBC AUTO DIFFon 05-07-2022 BASO # 0.0 103/ul Normal 0.0-0.1 [facility] Comment on above: Performed By: #### E RUR, UMICRO #### [facility] [address] [place] [address] Dr. Hardeep Rivera Basophils/100 WBC (Bld) 0.4 % Normal 0.2-2.0 [facility] Comment on above: Performed By: #### Deedee PINON, UMICRO #### [facility] [address] [address] [address] Hardeep Rivera EO # 0.1 103/ul Normal 0.0-0.7 [facility] Comment on above: Performed By: #### Deedee PINON, UMICRO #### [facility] [address] [address] [address] Hadreep Rivera Eosinophils/100 WBC (Bld) 1.0 % Normal 0.9-7.0 [facility] Comment on above: Performed By: #### E RUR, UMICRO #### [facility] [address] [address] [address] Hardeep Rivera Erythrocyte distribution width (RBC) [Ratio] 12.6 % Normal 11.0-15.0 [facility] Comment on above: Performed By: #### E RUR, UMICRO #### [facility] [address] [place] [address] Dr. Hardeep Rivera Hematocrit (Bld) [Volume fraction] 44.0 % Normal 36.0-48.0 [facility] Comment on above: Performed By: #### HARI OLSONRO #### [facility] [address] [place] [address] Dr. Hardeep Rivera Hemoglobin (Bld) [Mass/Vol] 14.0 g/dL Normal 12.0-16.0 [facility] Comment on above: Performed By: #### HARI OLSONRO #### [facility] [address] [place] [address] Dr. Hardeep Rivera IG # 0.02 10e3/ul Normal 0.00-0.03 [facility] Comment on above: Performed By: #### HARI OLSONRO #### [facility] [address] [place] [address] Dr. Hardeep Rivera IG % 0.3 % Normal 0.0-0.5 [facility] Comment on above: Performed By: #### HARI OLSONRO #### [facility] [address] [place] [address] Dr. Hardeep Rivera LYMPH # 0.6 103/ul Critically low 1.2-3.8 [facility] Comment on above: Performed By: #### HARI OLSONRO #### [facility] [address] [place] [address] Dr. Hardeep Rivera Lymphocytes/100 WBC (Bld) 8.2 % Critically low 20.5-60.0 [facility] Comment on above: Performed By: #### HARI OLSONRO #### [facility] [address] [place] [address] Dr. Hardeep Rivera MANUAL DIFF REQ NO Normal [facility] Comment on above: Performed By: #### HARI OLSONRO #### [facility] [address] [place] [address] Dr. Hardeep Rivera MCH (RBC) [Entitic mass] 29.4 pg Normal 26.7-34.0 [facility] Comment on above: Performed By: #### HARI OLSONRO #### [facility] [address] [place], [place] [address] Dr. Hardeep Rivera MCHC (RBC) [Mass/Vol] 31.8 g/dL Normal 29.9-35.2 [facility] Comment on above: Performed By: #### Deedee PINON, UMICRO #### [facility] [address] [place] [address] Dr. Hardeep Rivera MCV (RBC) [Entitic vol] 92.2 fL Normal 81.0-99.0 [facility] Comment on above: Performed By: #### E KATHRIN, UMICRO #### [facility] [address] [place] [address] Dr. Hardeep Rivera MONO # 0.8 103/ul Normal 0.3-0.8 [facility] Comment on above: Performed By: #### Deedee PINON, UMICRO #### [facility] [address] [place] [address] Dr. Hardeep Rivera Monocytes/100 WBC (Bld) 9.6 % Normal 1.7-12.0 [facility] Comment on above: Performed By: #### Deedee PINON, UMICRO #### [facility] [address] [place] [address] Dr. Hardeep Rivera NEUT # 6.3 103/ul Normal 1.4-6.5 [facility] Comment on above: Performed By: #### Deedee PINON, UMICRO #### [facility] [address] [place] [address] Dr. Hardeep Rivera Neutrophils/100 WBC (Bld) 80.5 % Critically high 43.0-75.0 [facility] Comment on above: Performed By: #### Deedee PINON, UMICRO #### [facility] [address] [place] [address] Dr. Hardeep Rivera Platelet mean volume (Bld) [Entitic vol] 10.1 fL Normal 9.5-13.5 [facility] Comment on above: Performed By: #### E KATHRIN, UMICRO #### [facility] [address] [place] [address] Dr. Hardeep Rivera PLT 188 103/ul Normal 150-450 [facility] Comment on above: Performed By: #### RANDALL OLSON #### [facility] [address] [address] [address] Hardeep Rivera RBC 4.77 106/ul Normal 4.20-5.40 [facility] Comment on above: Performed By: #### HARI OLSONRO #### [facility] [address] [address] [address] Hardeep Rivera WBC 7.8 103/ul Normal 4.0-11.0 [facility] Comment on above: Performed By: #### HARI OLSONRO #### [facility] [address] [place] [address] Dr. Hardeep Rivera PROF CHEM 8 (BAS METB)on Anion gap [Moles/Vol] 11.9 mmol/L [facility] Comment on above: Performed By: #### RANDALL OLSON #### [facility] [address] [place] [address] Dr. Hardeep Rivera Calcium [Mass/Vol] 8.7 mg/dL Normal 8.5-10.1 [facility] Comment on above: Performed By: #### RANDALL OLSON #### [facility] [address] [place] [address] Dr. Hardeep Rivera Chloride [Moles/Vol] 99 mmol/L Normal 98-107 [facility] Comment on above: Performed By: #### HARI OLSONRO #### [facility] [address] [place] [address] Dr. Hardeep Rivera CO2 [Moles/Vol] 27.1 mmol/L Normal 21.0-32.0 [facility] Comment on above: Performed By: #### HARI OLSONRO #### [facility] [address] [place] [address] Dr. Hardeep Rivera Creatinine [Mass/Vol] 1.62 mg/dL Critically high 0.55-1.02 [facility] Comment on above: Performed By: #### HARI OLSONRO #### [facility] [address] [address] [address] Hardeep Rivera EGFR-AF MAURITANIAN 37 mL/min/1.73m2 Critically low >=60 [facility] Comment on above: Performed By: #### Deedee PINON UMICRO #### [facility] [address] [address] [address] Hardeep Rivera EGFR-NON AF MAURITANIAN 31 mL/min/1.73m2 Critically low >=60 [facility] Comment on above: Performed By: #### E KATHRIN, UMICRO #### [facility] [address] [address] [address] Hardeep Rivera Glucose [Mass/Vol] 73 mg/dL Critically low 74-106 [facility] Comment on above: Performed By: #### Deedee PINON, UMICRO #### [facility] [address] [place] [address] Dr. Hardeep Rivera Potassium [Moles/Vol] 4.0 mmol/L Normal 3.5-5.1 [facility] Comment on above: Performed By: #### Deedee PINON UMICRO #### [facility] [address] [place] [address] Dr. Hardeep Rivera Sodium [Moles/Vol] 134 mmol/L Critically low 136-145 [facility] Comment on above: Performed By: #### Deedee PINON, UMICRO #### [facility] [address] [place] [address] Dr. Hardeep Rivera Urea nitrogen [Mass/Vol] 33.0 mg/dL Critically high 7.0-18.0 [facility] Comment on above: Performed By: #### Deedee PINON UMICRO #### [facility] [address] [place] [address] Dr. Hardeep Rivera Urea nitrogen/Creatinine [Mass ratio] 20.4 mg/mg [facility] Comment on above: Performed By: #### Deedee PINON, UMICRO #### [facility] [address] [place] [address] Dr. Hardeep Rivera TACROLIMUS/FK-506 BLon 05-07 Tacrolimus (Bld) [Mass/Vol] 3.4 ng/mL Low 5.0-20.0 [facility] Comment on above: Order Comment: Speci men Type: BLOOD SPECIMENOrdering Facility: [facility] Address: , , Result Comment: Thefernandez e reference ranges are provided as a [...] situation. Test performed by chemiluminescent immunoassay using [employer]. Performed By: #### F K506 ####[facility] LABCLIA [id number] [address] OF [facility] 05-03-2022 ODETTEN Telephone ([facility]) -- SYLVIA HERRERA ([id number]) 1945 F Date Time Provider Department 05/03/22 SHO CROWLEY [facility] During your visit today, we recorded the following information about you: Sho Crowley APRN.CHIEF INTERNAL AUDITOR 05/03/2022 2:58 PM Signed received phone call from [facility] group requesting patient's Tacrolimus levels from 04/24. Faxed results to [phone]. Allergies As of Date: 05/03/2022 Noted Allergy [...] mg by mouth three times daily. - bqlkxi-hfbcnzxq-oekmavr (CREON) 24,000-76,000 -120,000 unit cpDR Take 3 [...] Status:Closed by SHO CROWLEY on 05/03/22 Normal [facility] Rojas BOX TEST SENT OUTon 04-24-20 22 SENT TO REF LAB 04/24/2022 Normal [facility] Comment on above: Performed By: #### RANDALL OLSON #### [facility] [address] [place] [address] Dr. [facility] ODETTEN Telephone (CARD CHF ISACC) -- SYLVIA HERRERA ([id number]) 1945 F Date Time Provider Department 04/24/22 LOIDA MATHIAS CHF ISACC During your visit today, we recorded the following information about you: Linden Weems 04/24/2022 1:31 PM Signed Patient left message that she had labs drawn today. Linden Weems Administrative Weigher Bulker Post Heart Transplant J3-4 Loida Mathias APRN.ODETTE 04/26/2022 11:25 AM Signed Received FK level 4.5, drawn 04/24 My chart message sent to patient. Advised to remain on current dose and keep our office updated re: her plans for post transplant follow up. Loida Mathias APRN.CHIEF INTERNAL AUDITOR April 26, 2022 11:24 AM Component Latest [...] mg by mouth three times daily. - eqeukx-xvcbasxc-smenckp (CREON) 24,000-76,000 -120,000 unit cpDR Take 3 [...] Status:Closed by LINDEN WEEMS on 04/24/22 Normal [facility] TACROLIMUS/FK-506 BLon 04-24 Tacrolimus (Bld) [Mass/Vol] 4.5 ng/mL Low 5.0-20.0 [facility] Comment on above: Order Comment: [...] Test performed by chemiluminescent immunoassay using Sutton Octave Board Racker. Performed By: #### F K506 ####[facility] LABCLIA [id number] [place] [address] [place] FK506 (TACROLIMUS) WHOLE BLO ODon 04-11-2022 Tacrolimus (FK506), Blood 7.3 ng/mL Normal 2.0-20.0 [facility] Comment on above: Result Comment: Trou gh (immediately following transplant) 15.0 . Trough (steady state, 2 weeks or more after transplant): 3.0 - 8.0 . Performed by LC-MS/MS technology. Performed By: #### HARI OLSONRO #### [facility] [address] [place] [address] Dr. Hardeep Rivera BOX TEST SENT OUTon 04-09-20 22 SENT TO REF LAB 04/09/2022 Normal [facility] Comment on above: Performed By: #### HARI OLSONRO #### [facility] [address] [place] [address] Dr. Hardeep Rivera CBC AUTO DIFFon 04-09-2022 BASO # 0.0 103/ul Normal 0.0-0.1 [facility] Comment on above: Performed By: #### HARI OLSONRO #### [facility] [address] [place] [address] Dr. Hardeep Rivera Basophils/100 WBC (Bld) 0.1 % Critically low 0.2-2.0 [facility] Comment on above: Performed By: #### HARI OLSONRO #### [facility] [address] [place] [address] Dr. Hardeep Rivera EO # 0.1 103/ul Normal 0.0-0.7 [facility] Comment on above: Performed By: #### RANDALL OLSON #### [facility] [address] [place] [address] Dr. Hardeep Rivera Eosinophils/100 WBC (Bld) 1.2 % Normal 0.9-7.0 [facility] Comment on above: Performed By: #### HARI OLSONRO #### [facility] [address] [place] [address] Dr. Hardeep Rivera Erythrocyte distribution width (RBC) [Ratio] 12.6 % Normal 11.0-15.0 [facility] Comment on above: Performed By: #### HARI OLSONRO #### [facility] [address] [place] [address] Dr. Hardeep Rivera Hematocrit (Bld) [Volume fraction] 44.1 % Normal 36.0-48.0 [facility] Comment on above: Performed By: #### E RUR, UMICRO #### [facility] [address] [place] [address] Dr. Hardeep Rivera Hemoglobin (Bld) [Mass/Vol] 14.1 g/dL Normal 12.0-16.0 [facility] Comment on above: Performed By: #### E RUR, UMICRO #### [facility] [address] [place] [address] Dr. Hardeep Rivera IG # 0.02 10e3/ul Normal 0.00-0.03 [facility] Comment on above: Performed By: #### E RUTrish, UMICRO #### [facility] [address] [place] [address] Dr. Hardeep Rivera IG % 0.3 % Normal 0.0-0.5 [facility] Comment on above: Performed By: #### E KATHRIN UMICRO #### [facility] [address] [place] [address] Dr. Hardeep Rivera LYMPH # 0.7 103/ul Critically low 1.2-3.8 [facility] Comment on above: Performed By: #### Deedee PINON UMICRO #### [facility] [address] [place] [address] Dr. Hardeep Rivera Lymphocytes/100 WBC (Bld) 10.8 % Critically low 20.5-60.0 [facility] Comment on above: Performed By: #### Deedee PINON UMICRO #### [facility] [address] [place] [address] Dr. Hardeep Rivera MANUAL DIFF REQ NO Normal [facility] Comment on above: Performed By: #### E RUTrish, UMICRO #### [facility] [address] [place] [address] Dr. Hardeep Rivera MCH (RBC) [Entitic mass] 29.3 pg Normal 26.7-34.0 [facility] Comment on above: Performed By: #### E RUTrish, UMICRO #### [facility] [address] [place] [address] Dr. Hardeep Rivera MCHC (RBC) [Mass/Vol] 32.0 g/dL Normal 29.9-35.2 [facility] Comment on above: Performed By: #### RANDALL OLSON #### [facility] [address] [place] [address] Dr. Hardeep Rivera MCV (RBC) [Entitic vol] 91.7 fL Normal 81.0-99.0 [facility] Comment on above: Performed By: #### HARI OLSONRO #### [facility] [address] [place] [address] Dr. Hardeep Rivera MONO # 0.7 103/ul Normal 0.3-0.8 [facility] Comment on above: Performed By: #### HARI OLSONRO #### [facility] [address] [place] [address] Dr. Hardeep Rivera Monocytes/100 WBC (Bld) 10.8 % Normal 1.7-12.0 [facility] Comment on above: Performed By: #### RANDALL OLSON #### [facility] [address] [place] [address] Dr. Hardeep Rivera NEUT # 5.2 103/ul Normal 1.4-6.5 [facility] Comment on above: Performed By: #### RANDALL OLSON #### [facility] [address] [place] [address] Dr. Hardeep Rivera Neutrophils/100 WBC (Bld) 76.8 % Critically high 43.0-75.0 [facility] Comment on above: Performed By: #### HARI OLSONRO #### [facility] [address] [place] [address] Dr. Hardeep Rivera Platelet mean volume (Bld) [Entitic vol] 9.8 fL Normal 9.5-13.5 [facility] Comment on above: Performed By: #### HARI OLSONRO #### [facility] [address] [place] [address] Dr. Hardeep Rivera PLT 200 103/ul Normal 150-450 [facility] Comment on above: Performed By: #### HARI OLSONRO #### [facility] [address] [place] [address] Dr. Hardeep Rivera RBC 4.81 106/ul Normal 4.20-5.40 [facility] Comment on above: Performed By: #### Deedee PINON UMICRO #### [facility] [address] [place] [address] Dr. Hardeep Rivera WBC 6.7 103/ul Normal 4.0-11.0 [facility] Comment on above: Performed By: #### Deedee PINON UMICRO #### [facility] [address] [place] [address] Dr. Hardeep Rivera PROF CHEM 8 (BAS METB)on Anion gap [Moles/Vol] 9.1 mmol/L Normal [facility] Comment on above: Performed By: #### Deedee PINON UMICRO #### [facility] [address] [place] [address] Dr. Hardeep Rivera Calcium [Mass/Vol] 8.3 mg/dL Critically low 8.5-10.1 [facility] Comment on above: Performed By: #### Deedee PINON UMICRO #### [facility] [address] [place] [address] Dr. Hardeep Rivera Chloride [Moles/Vol] 100 mmol/L Normal 98-107 [facility] Comment on above: Performed By: #### Deedee PINON UMICRO #### [facility] [address] [place] [address] Dr. Hardeep Rivera CO2 [Moles/Vol] 28.1 mmol/L Normal 21.0-32.0 [facility] Comment on above: Performed By: #### Deedee PINON UMICRO #### [facility] [address] [place] [address] Dr. Hardeep Rivera Creatinine [Mass/Vol] 1.54 mg/dL Critically high 0.55-1.02 [facility] Comment on above: Performed By: #### Deedee PINON UMICRO #### [facility] [address] [place] [address] Dr. Hardeep Rivera EGFR-AF MAURITANIAN 40 mL/min/1.73m2 Critically low >=60 [facility] Comment on above: Performed By: #### RANDALL OLSON #### [facility] [address] [place] [address] Dr. Hardeep Rivera EGFR-NON AF MAURITANIAN 33 mL/min/1.73m2 Critically low >=60 [facility] Comment on above: Performed By: #### HARI OLSONRO #### [facility] [address] [place] [address] Dr. Hardeep Rivera Glucose [Mass/Vol] 122 mg/dL Critically high 74-[address] [facility] Comment on above: Performed By: #### HARI OLSONRO #### [facility] [address] [place] [address] Dr. Hardeep Rivera Potassium [Moles/Vol] 4.2 mmol/L Normal 3.5-5.1 [facility] Comment on above: Performed By: #### HARI OLSONRO #### [facility] [address] [place] [address] Dr. Hardeep Rivera Sodium [Moles/Vol] 133 mmol/L Critically low 136-145 [facility] Comment on above: Performed By: #### HARI OLSONRO #### [facility] [address] [place] [address] Dr. Hardeep Rivera Urea nitrogen [Mass/Vol] 28.0 mg/dL Critically high 7.0-18.0 [facility] Comment on above: Performed By: #### HARI OLSONRO #### [facility] [address] [place] [address] Dr. Hardeep Rivera Urea nitrogen/Creatinine [Mass ratio] 18.2 mg/mg Normal [facility] Comment on above: Performed By: #### HARI OLSONRO #### [facility] [address] [place] [address] Dr. Hardeep Rivera TACROLIMUS/FK-506 BLon 04-09 Tacrolimus (Bld) [Mass/Vol] 9.9 ng/mL Normal 5.0-20.0 [facility] Comment on above: Order Comment: Víctor friend Type: BLOOD SPECIMENOrdering Facility: Post Transplant Kit [...] Test performed by chemiluminescent immunoassay using Sutton Octave Board Racker. Performed By: #### F K506 ####[facility] LABCLIA [id number] [address] Eduardo 10-10-2021 NIK Telephone (J[facility]) -- SYLVIA HERRERA ([id number]) 1945 F Date Time Provider Department 10/10/21 LOIDA MATHIAS [facility] During your visit today, we recorded the following information about you: Linden Weems 10/10/2021 11:57 AM Signed Patient had labs drawn today Linden Weems Administrative Weigher Bulker Linden Weems 10/11/2021 10:57 AM Signed Labs uploaded to scanned docs. Linden Weems Administrative Weigher Bulker Loida Mathias APRN.CNP 10/12/2021 12:28 PM Signed Received outside labs drawn 10/10 -- FK 10.1 Cr 1.4 BUN 24 K 4.8 FBS 105 WBC 8300 Hgb 13 Hct 42 Plts 209 Called and left message for patient. Advised if this was a good 12 hr trough, to reduce Tacrolimus to 0.5 mg BID. Repeat labs in 2 weeks. Loida Mathias APRN.CHIEF INTERNAL AUDITOR October 12, 2021 12:27 PM Loida Mathias [...] by transplant. No Dr Caldera: Rfl: TACROLIMUS/FK-506 [[id number]] Order #: [id number] FUTURE Prescriptions as of 10/12/2021 - tacrolimus [...] mg by mouth three times daily. - xzshmu-yfpziqgi-eupvlxq (CREON) 24,000-76,000 -120,000 unit cpDR Take 3 [...] [J18.9] 11/29 (more content not included)... Normal [facility] Tacrolimus / [id number] 021 Tacrolimus / FK506 10.1 ng/mL Normal 5.0-20.0 [facility] Comment on above: Result Comment: Thes [...] Test performed by chemiluminescent immunoassay using Sutton Octave Board Racker. Performed By: #### F K506 ####[facility] [id number] [place], [place] [id number] Eduardo 09-13-2021 CNPN Telephone (CARD MARICEL DEXTER) -- SYLVIA HERRERA ([id number]) 1945 F Date Time Provider Department 09/13/21 ARELIS NEWSOME CARD CHF ISACC During your visit today, we recorded the following information about you: Linden Weems 09/13/2021 2:52 PM Signed S/w pt, due to transportation and financial constraints she is unable to come to [place] for appointments. Patient is working with her telephonic case manager to establish care with a local graves registration specialist (had previously been followed by one in [place]).Dr Rice has agreed and plan going forward will be to do a phone visit with pt on 10/03 and she will follow up in the interim with her local Ict Managers. Sending pt mailers and lab order, she will get those done as soon as she can. Linden Weems Administrative Weigher Bulker Allergies As of Date: 09/13/2021 Noted Allergy [...] mg by mouth three times daily. - zzrmmu-sjuwzibj-fcniicy (CREON) 24,000-76,000 -120,000 unit cpDR Take 3 [...] Encounter Status:Closed by LINDEN WEEMS on 09/13/21 [facility] OBSOLETEon 09-12-2021 OBSOLETE Refill (CARD [facility] ) -- SYLVIA HERRERA ([id number]) 1945 F Date Time Provider Department 09/12/21 SANDRITA GUERRERO [facility] During your visit today, we [...] mg by mouth three times daily. - xyujbj-ambttyix-hipwrct (CREON) 24,000-76,000 -120,000 unit cpDR Take 3 [...] [R10.31] 04/29/2014 09/02/2019 Diabetes mellitus, type II ([facility]) [E11.9] 04/29/2014 DREW (acute kidney injury) ([facility]) [N17.9] 05/06/2014 05/19/2014 Orthostasis [I95.1] 05/06/2014 05/19/2014 [...] Status:Closed by SANDRITA GUERRERO on 09/12/21 Normal [facility] Vital Signs Date Time Vital Sign Value Performing Clinician Dami charles 04-08-2023 06:45-0400 Diastolic blood pressure 76 mm[Hg] Kangou [facility] 04-08-2023 06:45-0400 Heart rate 59 /min Kangou [facility] 04-08-2023 06:45-0400 Hourly Rounding Kangou [facility] 04-08-2023 06:45-0400 Mean blood pressure 106 mm[Hg] Kangou [facility] 04-08-2023 06:45-0400 Respiratory rate 18 /min Kangou [facility] 04-08-2023 06:45-0400 SaO2% (BldA) [Mass fraction] 96 % Richard Roby [facility] 04-08-2023 06:45-0400 Systolic blood pressure 167 mm[Hg] Richard Roby [facility] 04-08-2023 05:30-0400 Diastolic blood pressure 88 mm[Hg] Richard Roby [facility] 04-08-2023 05:30-0400 Heart rate 52 /min Richard Roby [facility] 04-08-2023 05:30-0400 Hourly Rounding Richard Roby [facility] 04-08-2023 05:30-0400 Mean blood pressure 114 mm[Hg] Richard Roby [facility] 04-08-2023 05:30-0400 Respiratory rate 18 /min Richard Roby [facility] 04-08-2023 05:30-0400 SaO2% (BldA) [Mass fraction] 95 % Richard Roby [facility] 04-08-2023 05:30-0400 Systolic blood pressure 167 mm[Hg] Richard Roby [facility] 04-08-2023 04:39-0400 Diastolic blood pressure 90 mm[Hg] Richard Roby [facility] 04-08-2023 04:39-0400 Heart rate 56 /min Richard Roby [facility] 04-08-2023 04:39-0400 Hourly Rounding Richard Roby [facility] 04-08-2023 04:39-0400 Mean blood pressure 112 mm[Hg] Richard Roby [facility] 04-08-2023 04:39-0400 Respiratory rate 17 /min Richard Roby [facility] 04-08-2023 04:39-0400 SaO2% (BldA) [Mass fraction] 94 % Richard Roby [facility] 04-08-2023 04:39-0400 Systolic blood pressure 155 mm[Hg] Richard Roby [facility] 04-07-2023 21:48-0400 Respiratory rate 18 /min Richard Roby [facility] 04-07-2023 21:19-0400 Body temperature 98.06 [degF] Richard Ca [facility] 04-07-2023 21:19-0400 Heart rate 65 /min Richard Roby [facility] 04-07-2023 21:19-0400 Respiratory rate 19 /min [facility] Roby [facility] Encounters Encounter Date Encounter Type Care Provider Facility Start: 07-01-2024 End: 07-01-2024 ambulatory [facility] Start: 06-18-2024 End: 06-18-2024 ambulatory NON STAFF [facility] Work Phone: Start: 06-18-2024 End: 06-18-2024 Departed Referred [facility] Start: 02-03-2024 End: 02-03-2024 ambulatory [facility] Start: 11-12-2023 End: 11-12-2023 ambulatory [facility] Start: 08-07-2023 End: 08-07-2023 ambulatory [facility] Start: 04-07-2023 End: 04-08-2023 Emergency department patient visit Richard Ca Facility:[facility] Start: 04-07-2023 End: 04-08-2023 Emergency department patient visit Richard Ca [facility] Start: 03-05-2023 End: 03-05-2023 ambulatory SCOT ROGERS Facility:[facility] Start: 02-26-2023 End: 02-27-[address] ANISHA DALY Facility:[facility] Start: 02-14-2023 End: 02-14-2023 ambulatory NANCY REYES . Facility:[facility] Start: 02-13-2023 End: 02-14-2023 ambulatory SCOT ROGERS Facility:[facility] Start: 02-09-2023 End: 02-10-[address] ANISHA DALY Facility:[facility] Start: 01-09-2023 End: 01-10-[address] TAO ROONEY . Facility:[facility] Start: 12-13-2022 End: 12-14-2022 ambulatory SCOT ROGERS Facility:[facility] Start: 12-11-2022 End: 12-12-[address] TAO ROONEY . Facility:[facility] Start: 11-14-2022 End: 11-14-2022 ambulatory SCOT ROGERS Facility:[facility] Start: 10-03-2022 End: 10-03-2022 ambulatory SCOT ROGERS Facility:[facility] Start: 09-08-2022 Refill Sandrita Guerrero APRN.CHIEF INTERNAL AUDITOR Work Phone: Cardiology Comment on above: Refill Request Start: 08-04-2022 End: 08-04-2022 ambulatory NANCY REYES . Facility:[facility] Start: 08-02-2022 Telephone encounter Loida Mathias APRN.CNP Work Phone: Cardiology Comment on above: Heart Transplant Fol low Up (Labs/) Start: 08-02-2022 End: 08-03-[address] TAO ROONEY . Facility:[facility] Start: 07-27-[address] TAO ROONEY . Facili ty:[facility] Start: 07-17-2022 End: 07-18-2022 ambulatory [facility] Facility:[facility] Start: 07-16-2022 End: 07-17-2022 ambulatory [facility] Facility:[facility] Start: 07-16-2022 End: 07-16-2022 Patient encounter procedure [facility] Start: 07-12-2022 End: 07-13-2022 ambulatory [facility] Facility[facility] Start: 07-05-2022 Telephone encounter Sho Crowley APRN.CHIEF INTERNAL AUDITOR Work Phone: Cardiology Comment on above: Heart Transplant Fol low Up; Lab Meeting Start: 07-03-2022 Telephone encounter Soy Mccann RN [facility] rdiology Comment on above: Heart Transplant Fol low Up (labs) Start: 07-03-2022 End: 07-04-[address] TAO ROONEY . Facility:[facility] Start: 05-28-2022 End: 05-29-[address] TAO ROONEY . Facility:[facility] Start: 05-23-2022 ambulatory [facility] Start: 05-08-2022 Telephone encounter Loida Mathias APRN.CHIEF INTERNAL AUDITOR Work Phone: Cardiology Comment on above: Heart Transplant Fol low Up (labs) Start: 05-07-2022 End: 05-08-[address] TAO ROONEY . Facility: Start: 04-24-2022 Telephone encounter Loida Mathias APRN.CHIEF INTERNAL AUDITOR Work Phone: Cardiology Comment on above: Heart Transplant Fol low Up Start: 04-24-2022 End: 04-25-[address] TAO ROONEY . Facility:[facility] Start: 04-20-[address] TAO ROONEY . Facili ty:[facility] Start: 04-11-2022 ambulatory Loida fontaine APRN.CHIEF INTERNAL AUDITOR Work Phone: [facility] Start: 04-11-2022 Follow-up encounter Loida Mathias APRN.CHIEF INTERNAL AUDITOR Work Phone: Cardiology Comment on above: Heart Transplant Fol low Up (Labs) Start: 04-09-2022 End: 04-10-[address] TAO ROONEY . Facility: Start: 04-06-2022 Orders Only Loida fontaine APRN.CHIEF INTERNAL AUDITOR Work Phone: Cardiology Comment on above: Heart replaced by tr ansplant (HCC) (Primary Dx) Start: 04-04-2022 Refill Loida fontaine APRN.CHIEF INTERNAL AUDITOR Work Phone: Cardiology Comment on above: Rx Refills Start: 10-03-2021 End: 10-03-2021 ambulatory NICOLETTE RICE [facility] Procedures Date Procedure Procedure Detail Performing Clinician Start: 08-10-2013 H/O: heart recipient Heart transplan arianna Loida Mathias APRN.CHIEF INTERNAL AUDITOR Work Phone: H/O: heart recipient Heart transplanted ( HCC) Loida Iammarino BIODIESEL PRODUCTION TECHNICIAN.CHIEF INTERNAL AUDITOR Work Phone: H/O: heart recipient Heart repla nitish by transplant ([facility]) Loida Iammarino BIODIESEL PRODUCTION TECHNICIAN.CHIEF INTERNAL AUDITOR Work Phone: H/O: heart recipient Heart transplanted ( HCC) Loida Iammarino BIODIESEL PRODUCTION TECHNICIAN.CHIEF INTERNAL AUDITOR Work Phone: H/O: heart recipient Heart transplanted ( HCC) Loida Iammarino BIODIESEL PRODUCTION TECHNICIAN.CHIEF INTERNAL AUDITOR Work Phone: H/O: heart recipient Heart transplanted ( HCC) Sho Crowley APRN.CHIEF INTERNAL AUDITOR Work Phone: H/O: heart recipient Hx of heart transplant( Confirmed ) Eddie JAMA Plan of Treatment Date Care Activity Detail Author Start: 08-02-2022 Influenza vaccination INFLUENZA (#1) [facility] Start: 07-19-2022 End: 09-18-2022 Tacrolimus [Mass/volume] in Blood TACROLIMUS/FK-506 BL Lab Routine Heart transplanted (HCC) Expected: 07/19/2022 (Approximate), Expires: 09/18/2022 [facility] Work Phone: Comment on above: Expected: 07/19/2022 (Approximate), Expires: 09/18/2022 Start: 05-21-2022 End: 07-21-2022 TACROLIMUS/FK-506 BL TACROLIMUS/FK-506 BL Lab Routine Heart transplanted (HCC) Expected: 05/21/2022, Expires: 07/21/2022 [facility] Work Phone: Comment on above: Expected: 05/21/2022 , Expires: 07/21/2022 Start: 04-23-2022 End: 06-23-2022 TACROLIMUS/FK-506 BL TACROLIMUS/FK-506 BL Lab Routine Heart transplanted (HCC) Expected: 04/23/2022, Expires: 06/23/2022 [facility] Work Phone: Comment on above: Expected: 04/23/2022 , Expires: 06/23/2022 Start: 04-09-2022 End: 06-09-2022 CBC W Auto Differential panel - Blood CBC + DIFF Lab Routine Heart replaced by transplant (HCC) Expected: 04/09/2022, Expires: 06/09/2022 [facility] Work Phone: Comment on above: Expected: 04/09/2022 , Expires: 06/09/2022 Start: 04-09-2022 End: 06-09-2022 Comprehensive metabolic 2000 panel - Serum or Plasma COMP METABOLIC PANEL Lab Routine Heart replaced by transplant ([facility]) Expected: 04/09/2022, Expires: 06/09/2022 [facility] Work Phone: Comment on above: Expected: 04/09/2022 , Expires: 06/09/2022 Start: 04-09-2022 End: 04-06-2023 HEART/LUNG REC POST TX DSA HEART/LUNG REC POST TX DSA ALLOGEN Routine Heart replaced by transplant ([facility]) Expected: 04/09/2022, Expires: 04/06/2023 [facility] Work Phone: Comment on above: Expected: 04/09/2022 , Expires: 04/06/2023 Start: 04-09-2022 End: 06-09-2022 LIPID PANEL BASIC LIPID PANEL BASIC Lab Routine Heart replaced by transplant (HCC) Expected: 04/09/2022, Expires: 06/09/2022 [facility] Work Phone: Comment on above: Expected: 04/09/2022 , Expires: 06/09/2022 Start: 04-09-2022 End: 06-09-2022 Magnesium [Mass/volume] in Serum or Plasma MAGNESIUM BLD Lab Routine Heart replaced by transplant ([facility]) Expected: 04/09/2022, Expires: 06/09/2022 [facility] Work Phone: Comment on above: Expected: 04/09/2022 , Expires: 06/09/2022 Start: 04-09-2022 End: 06-09-2022 TACROLIMUS/FK-506 BL TACROLIMUS/FK-506 BL Lab Routine Heart replaced by transplant ([facility]) Expected: 04/09/2022, Expires: 06/09/2022 [facility] Work Phone: Comment on above: Expected: 04/09/2022 , Expires: 06/09/2022 Start: 04-09-2022 End: 06-09-2022 URINALYSIS, DIPSTICK ONLY URINALYSIS, DIPSTICK ONLY Lab Routine Heart replaced by transplant ([facility]) Expected: 04/09/2022, Expires: 06/09/2022 [facility] Work Phone: Comment on above: Expected: 04/09/2022 , Expires: 06/09/2022 Start: 12-02-2021 ADVANCE DIRECTIVE DISCUSSION ADVANCE DIRECTIVE DISCUSSION [facility] Start: 09-26-2021 COVID-19 VACCINE (3 - Pfizer risk 4-dose series) COVID-19 VACCINE (3 - Pfizer risk 4-dose series) [facility] Start: 09-26-2021 COVID-19 VACCINE (3 - Pfizer risk series) COVID-19 VACCINE (3 - Pfizer risk series) [facility] Start: 03-04-2020 Hepatitis B surface antibody level LDL CHOLESTEROL [facility] Start: 06-14-2015 Hemoglobin A1c/Hemoglobin.total in Blood HBA1C [facility] Start: 11-01-2013 PNEUMOCOCCAL: 65+ (3 - PCV) PNEUMOCOCCAL: 65+ (3 - PCV) [facility] Start: 2009 ADULT PREVNAR ADULT PREVNAR [facility] Start: 1994 SHINGRIX VACCINE (1 of 2) SHINGRIX VACCINE (1 of 2) [facility] Start: 1963 SHINGRIX VACCINE (1 of 2) SHINGRIX VACCINE (1 of 2) [facility] Start: 1963 Urine microalbumin profile DTAP,TDAP,TD (1 - Tdap) [facility] Start: 1962 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 BRENNAN DISEASE VISIT ANNUAL PCP TEAM CHRONIC DISEASE VISIT [facility] Start: 1962 BP CONTROLLED (<130/80) BP CONTROLLE D (<130/80) [facility] Start: 1954 3 comp foot exam completed DIABETIC FOOT EXAM [facility] Start: 1954 Hepatitis B screening URINE ALBUMIN:CREATININE RATIO [facility] Start: 1954 Hepatitis C antibody , confirmatory test DILATED RETINAL EXAM [facility] Start: 1950 PNEUMOCOCCAL: 65+ (1 - PCV) PNEUMOCOCCAL: 65+ (1 - PCV) [facility] [place] [facility] Immunizations Immunization Date Immunization Notes Care Provider Fa cility 06-05-2022 SARS-CoV-2 mRNA (pdfppujawsm-oxbw-jlpht se) vaccine Morgan SALOPPRTUNITY [facility] 08-29-2021 SARS-CoV-2 (COVID-19 ) mRNA BNT-162b2 vax Morgan SALAM [facility] 08-02-2021 SARS-CoV-2 (COVID-19 ) mRNA BNT-162b2 vax Morgan SALAM [facility] 07-05-2021 influenza virus vaccine, unspecified formulation Morgan SALAM [facility] 09-29-2020 influenza, unspecifi ed formulation Morgan SALAM [facility] 07-24-2020 influenza virus vaccine, unspecified formulation Morgan SCM-GLAM [facility] 09-02-2017 influenza virus vaccine, unspecified formulation Morgan SALAM [facility] 08-07-2017 pneumococcal conjuga te vaccine, 13 valent Morgan SALAM [facility] 08-14-2016 influenza virus vaccine, unspecified formulation Morgan SALAM [facility] 09-29-2015 pneumococcal conjuga te vaccine, 13 valent Morgan SALAM [facility] 08-04-2015 influenza virus vaccine, unspecified formulation Morgan SALAM [facility] 09-15-2014 influenza virus vaccine, whole virus Loida Iammarino BIODIESEL PRODUCTION TECHNICIAN.[facility] Work Phone: [facility] 09-15-2014 influenza, whole Morgan SALAM [facility] 11-01-2012 pneumococcal polysaccharide vaccine, 23 valent Loida Iammarino BIODIESEL PRODUCTION TECHNICIAN.[facility] Work Phone: [facility] 12-28-2009 novel [id number], all formulations Loida Iammarino BIODIESEL PRODUCTION TECHNICIAN.[facility] Work Phone: [facility] Work Phone: 08-19-2009 influenza virus vaccine, unspecified formulation Loida Iammarino BIODIESEL PRODUCTION TECHNICIAN.[facility] Work Phone: [facility] 09-01-2006 influenza virus vaccine, unspecified formulation Loida Iammarino BIODIESEL PRODUCTION TECHNICIAN.[facility] Work Phone: [facility] Work Phone: 09-01-2006 pneumococcal polysaccharide vaccine, 23 valent Loida Iammarino BIODIESEL PRODUCTION TECHNICIAN.[facility] Work Phone: [facility] Work Phone: NEGATED: Highlighted row has not occurred!07-12-2022 influenza virus vaccine, unspecified formulation Morgan SALAM [facility] Payers Date Payer Category Payer Self-pay 2022 Medicare UHC MEDICARE UHC DUAL COMPLETE HMO SNP [id number] 2022-Present [phone] [address] [place] [address] Medicare [id number] 2022 Medicare UHC MEDICARE UHC DUAL COMPLETE HMO SNP [id number] 2022-Present [phone] [address] [place] [address] Medicare [id number] 2020 Unknown [id number] 1959 Medicaid [id number] 1959 Medicare [id number] 1959 Self-pay [id number] 1959 Unknown [id number] 1944 Unknown [id number] 2.16.840.1.796592.3.579.2.593 1944 Unknown [id number] 2.16.840.1.059655.3.579.2.593 1944 Unknown [id number] 2.16.840.1.580334.3.579.2.593 1944 Unknown [id number] 2.16.840.1.737316.3.579.2.593 1944 Unknown [id number] 2.16.840.1.150879.3.579.2.593 1944 Unknown [id number] 2.16.840.1.045919.3.579.2.593 1944 Unknown [id number] 2.16.840.1.601878.3.579.2.593 1944 Unknown [id number] 2.16.840.1.251511.3.579.2.593 1944 Unknown [id number] 2.16.840.1.945033.3.579.2.593 1944 Unknown [id number] 2.16.840.1.492326.3.579.2.593 1944 Unknown [id number] 2.16.840.1.924806.3.579.2.593 1944 Unknown [id number] 2.16.840.1.243434.3.579.2.593 1944 Unknown [id number] 2.16.840.1.624944.3.579.2.593 1944 Unknown [id number] 2.16.840.1.661140.3.579.2.593 1944 Unknown [id number] 2.16.840.1.336954.3.579.2.593 1944 Unknown [id number] 2.16.840.1.552839.3.579.2.593 1944 Unknown [id number] 2.16.840.1.380661.3.579.2.593 1944 Unknown [id number] 2.16.840.1.329825.3.579.2.593 1944 Unknown [id number] 2.16.840.1.160321.3.579.2.727 1944 Unknown [id number] 2.16.840.1.637819.3.579.2.727 1944 Unknown [id number] 2.16.840.1.213012.3.579.2.727 1944 Unknown [id number] 2.16.840.1.491441.3.579.2.727 1944 Unknown [id number] 2.16.840.1.432889.3.579.2.727 Unknown [id number] 2.16.840.1.616828.3.579.2.593 Social History Date Type Detail Facility Start: 05-13-2019 Tobacco smoking stat us NHIS Ex-smoker [facility] Work Phone: History of tobacco use Cigarette Smoker [facility] Work Phone: Start: 09-07-2019 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) [facility] Start: 1945 Sex Assigned At Not on file [facility] Start: 07-12-2022 Never smoked t obacco (finding) [facility] Never [facility] Female [facility] History of tobacco use Current smoker [facility] Start: 05-13-2019 Cigarettes smoked current (pack per day) - Reported 0.3 [facility] Start: 05-13-2019 Tobacco use and exposure Smokeless tobacco non-user [facility] Start: 1945 Sex Assigned At Female F [facility] Functional Status Date Assessment Result Facility 04-07-2023 Functional Status N/A [facility] Clinical Notes 11-14-2017 to 07-01-2024 Note Date & Type Note Facility 07-01-2024 Note [facility] Subjective Sylvia Herrera is a 78 y.o. year old female patient being seen for follow up [facility] for syncope. Says she's been having [...] in 2007. She is followed by the [facility] cardiology service. She has had [...] There is no (more content not included)... [facility] 02-03-2024 Note [facility] Subjective Sylvia Herrera is a 78 y.o. year old female patient being seen for follow up [facility]. She was seen as inpatient consult [...] Alcohol use: Not Currently Drug use: Never [facility] Visit of 10/30/2021: Sylvia is seen [...] in 2007. She is followed by the [facility] cardiology service. She has had [...] the prior echocardiographi (more content not included)... [facility] 11-12-2023 Note [facility] Subjective Sylvia Herrera is a [...] in 2007. She is followed by the [facility] cardiology service. She has had [...] Stress Testing (1 (more content not included)... [facility] 10-28-2023 Note [facility] 08-07-2023 Note [facility] Subjective Sylvia Herrera is a [...] in 2007. She is followed by the [facility] cardiology service. She has had [...] scan. [address] (more content not included)... [facility] 04-08-2023 Hospital Discharge instructions Patient Education [...] ?Adrenal gland problems. ?Metabolic conditions, such as Kulwinder's disease or syndrome [...] improvement. Follow these instructions at home: Take osrb-kzs-xgaypte and prescription medicines only as told by [...] provider. Document Revised: 05/29/2022 Document Reviewed: 05/29/2022 [employer] Patient Education 2022 [employer]. 04/08/2023 08:56:02 Nonspecific Chest Pain, Adult Nonspecific [...] Follow these instructions at home: Medicines Take peyc-zqz-wtxauyx and prescription medicines only as told by [...] provider. Document Revised: 02/01/2022 Document Reviewed: 02/01/2022 [employer] Patient Education 2022 Snap[employer]ointments Follow Up Care 04/07/2023 21:19:10 With:SCOT ROGERS Address: [facility] [place] [address] [phone] Business (1) When:Within 3 Day(s) [facility] 04-07-2023 Evaluation + Plan note [...] Troponin 9 Hr. XR Chest Single View [facility]09-01-2022 Miscellaneous Notes* Telephone Encounter - Linden Weems - 08/02/2022 1:41 PM EDT Patient had labs drawn 08/02/22, uploaded to scanned docs. [facility] Miscellaneous Notes* Telephone Encounter - Sho Crowley [...] another team. Sho Crowley APRN, CNP Pager: [phone] July 05, 2022 10:42 AM Post Heart Transplant Nurse Practitioner documented in this encounterK[facility]08-[facility]-2022 Miscellaneous Notes* Telephone Encounter - Linden Weems - 07/03/2022 12:59 PM EDT Patient had labs drawn 07/03/22, uploaded to scanned docs. documented in this encounterK[facility]06-07-2022 Miscellaneous Notes* Addendum Note - Loida Mathias [...] uploaded to scanned docs. Linden Weems Administrative Weigher Bulker documented in this encounterK[facility]05-24-2022 Miscellaneous Notes* Telephone Encounter - Linden Weems - 04/24/2022 1:31 PM EDT Patient left message that she had labs drawn today. Linden Weems Administrative Weigher Bulker Post Heart Transplant J3-4 documented in this encounterK[facility]05-11-2022 NoteHNO ID: [id number] Author: Loida Mathias APRN.CNP Service: ? Author [...] reports she can no longer travel to [place]. She does not have a ride, she has no family or friends to lean on. She has made an appt with a local [employer]. She will ask him if there are any transplant doctors or centers near her and potentially need to transfer her care. She will keep us updated. Loida Mathias APRN.CNP April 12, 2022 2:25 [facility]05-11-2022 History of Present illness Narrative* Loida [...] reports she can no longer travel to [place]. Shedoes not have a ride, she has no family or friends to lean on. She has made an appt with a local Ict Managers. She will ask him if there are any transplant doctors or centers near her and potentiallyneed to transfer her care. She will keep us updated. Loida Mathias APRN.CNP April 12, 2022 2:25 PM documented in this encounterK[facility]11-08-2021 NoteHNO ID: [id number] Author: Loida Mathias APRN.CNP Service: ? Author [...] Loida Mathias APRN.CNP October 09, 2021 4:10 [facility]11-02-2021 NoteHNO ID: [id number] Author: Nicolette Rice MD Service: ? Author Type: Physician Type: Progress Notes Filed: 10/03/2021 4:12 PM Note Text: Heart, Vascular AND Thoracic [place] Department of Cardiovascular Medicine TELEPHONE VISIT PROGRESS [...] ago. She currently denies any history of EGE, orthopnea, PND,edema, chest pain, palpitations, dizziness or [...] in ~6 months. Will see a local graves registration specialist at the end of the month. Data Reviewed: No new labs Assessment: She is doing well clinically and her BP is controlled. ? Plan: 1. She was instructed to continue the current medical program. 2. RTC per post-transplant protocol. Total Time Spent: 21-30 minutes Nicolette Rice, [facility]12-14-2017 History of Past illness Narrative* Problem [...] of this encounter (statuses as of 04/05/2022) [facility] History of Past illness Narrative* [...] of this encounter (statuses as of 04/06/2022) [facility] History of Past illness Narrative* [...] of this encounter (statuses as of 04/12/2022) [facility] History of Past illness Narrative* [...] of this encounter (statuses as of 04/24/2022) [facility] History of Past illness Narrative* [...] of this encounter (statuses as of 05/08/2022) [facility] History of Past illness Narrative* [...] of this encounter (statuses as of 07/03/2022) [facility] History of Past illness Narrative* [...] of this encounter (statuses as of 07/05/2022) [facility] History of Past illness Narrative* [...] of this encounter (statuses as of 08/02/2022) [facility] History of Past illness Narrative* [...] of this encounter (statuses as of 09/11/2022) [facility] Future Appointments Appointment Date:08/01/2022 01:50:00 PM Scheduled Provider: Location:[facility] Appointment Type:Surgery FT Diagnostic Tests Pending * CMV Antibody IgM 07/16/22 Future Scheduled Tests Laboratory* Fecal WBC Lactoferrin 07/12/22 * Giardia lamblia, Direct Detection EIA 07/12/22 * O & P Exam, Routine 07/12/22 * Clostridium difficile by PCR 07/12/22 * Enteric Panel by PCR 07/12/22 [facility] Diagnosis Heart transplanted (HCC) Heart replaced by transplant [facility] Diagnosis Heart replaced by transplant (HCC)- Primary Heart replaced by transplant [facility] Diagnosis Heart replaced by transplant (HCC)- Primary Heart replaced by transplant Heart transplanted (HCC) Heart replaced by transplant [facility] Diagnosis Heart transplanted (HCC) Heart replaced by transplant [facility]* Diagnosis Heart transplanted (HCC) Heart replaced by transplant [facility] encounter [facility] noteNo assessment information availableMount [facility] Work Phone: Hospital course Narrative No data available for this section [facility] No data available for this section [facility] No data available for this section [facility] Advance Directives No Advanced Directives Records FoundDocuments on File Type Date Recorded Patient Hospital Tray Service Worker Expl anation Advance Directive(s) 11/14/2017 5:44 AM Advance Directive(s) 01/02/2012 12:00 AM Advance Directive(s) 01/17/2007 12:00 AM Documents on File Type Date Recorded Patient Hospital Tray Service Worker Expl anation Advance Directive(s) 01/02/2012 Advance Directive(s) [...] or prosecute any alcohol or drug abuse patient.[facility] the event this information is protected by the Federal Confidentiality of Alcohol and Drug Abuse Patient Records regulations: The Federal rules restrict any use of the information to criminally investigate or prosecute any alcohol or drug abuse patient.[facility] the event this information is protected by the Federal Confidentiality of Alcohol and Drug Abuse Patient Records regulations: The Federal rules restrict any use of the information to criminally investigate or prosecute any alcohol or drug abuse patient.[facility] the event this information is protected by the Federal Confidentiality of Alcohol and Drug Abuse Patient Records regulations: The Federal rules restrict any use of the information to criminally investigate or prosecute any alcohol or drug abuse patient.[facility] the event this information is protected by the Federal Confidentiality of Alcohol and Drug Abuse Patient Records regulations: The Federal rules restrict any use of the information to criminally investigate or prosecute any alcohol or drug abuse patient.[facility] the event this information is protected by the Federal Confidentiality of Alcohol and Drug Abuse Patient Records regulations: The Federal rules restrict any use of the information to criminally investigate or prosecute any alcohol or drug abuse patient.[facility] the event this information is protected by the Federal Confidentiality of Alcohol and Drug Abuse Patient Records regulations: The Federal rules restrict any use of the information to criminally investigate or prosecute any alcohol or drug abuse patient.[facility] the event this information is protected by the Federal Confidentiality of Alcohol and Drug Abuse Patient Records regulations: The Federal rules restrict any use of the information to criminally investigate or prosecute any alcohol or drug abuse patient.[facility] Campus[facility] the event this information is protected by the Federal Confidentiality of Alcohol and Drug Abuse Patient Records regulations: The Federal rules restrict any use of the information to criminally investigate or prosecute any alcohol or drug abuse patient.[facility] Reason for Visit (unrecogniz ed section and content) Reason Comments Rx Refills Reason Comments Heart Transplant Follow Up Labs Reason Comments Heart Transplant Follow Up Reason Comments Heart Transplant Follow Up labs Reason Comments Heart Transplant Follow Up Lab Meeting Reason Comments Refill Request Care Teams (unrecognized sec tion and content) Gold Leaf Gilder Relationship Specialty Start Date End Date Tao Rooney MD [address] [id number] PCP - General Family Practice 05/13/19 Gold Leaf Gilder Relationship Specialty Start Date End Date Tao Rooney MD [address] [id number] PCP - General Family Practice 05/13/19 Gold Leaf Gilder Relationship Specialty Start Date End Date Tao Rooney MD [address] [id number] PCP - General Family Practice 05/13/19 Gold Leaf Gilder Relationship Specialty Start Date End Date Tao Rooney MD [address] [id number] PCP - General Family Practice 05/13/19 Gold Leaf Gilder Relationship Specialty Start Date End Date Tao Rooney MD [address] [id number] PCP - General Family Practice 05/13/19 Gold Leaf Gilder Relationship Specialty Start Date End Date Tao Rooney MD [address] [place] [address] PCP - General Family Medicine 05/13/19 Team Status: Inactive Member Role Status Dates NON STAFF Attending Provider Active Start: Padma chavis 2023 End: June 18, 2024 INFORMATION SOURCE (unrecogn ized section and content) DATE CREATED AUTHOR 09/01/2022 [facility] DATE CREATED AUTHOR AUTHOR'S ORGANIZ ATION 03/09/2023 [facility] DATE CREATED AUTHOR AUTHOR'S ORGANIZ ATION 04/08/2023 [facility] DATE CREATED AUTHOR AUTHOR'S ORGANIZ ATION 07/12/2024 [facility] DATE CREATED AUTHOR AUTHOR'S ORGANIZ ATION 07/23/2024 [facility] Goals (unrecognized section and content) Goals [...] BE BASED ON THE PRIMARY CLINICAL RECORDS. [employer] provides no warranty or guarantee of the accuracy or completeness of information in this document.
[2024-07-24 13:52] LABS: Alanine Aminotransferase 31 U/L (14-59); Albumin Globulin Ratio 1.4; Albumin Level 3.4 g/dL (3.4-5.0); Alkaline Phosphatase 213 U/L (46-116); Anion Gap 14.6; Aspartate Amino Transferase 26 U/L (15-37); BUN Creatinine Ratio 15.6; Bilirubin Total 0.7 mg/dL (0.2-1.0); Calcium 8.5 mg/dL (8.5-10.1); Carbon Dioxide 19.7 mmol/L (21.0-32.0); Chloride 103 mmol/L (98-107); Estimated GFR (African America 24 (>=60); Estimated GFR (Non-African Ame 20 (>=60); Globulin 2.5 g/dL; Glucose 134 mg/dL (74-106); Magnesium 1.3 mg/dL (1.8-2.4); Potassium 4.3 mmol/L (3.5-5.1); Sodium 133 mmol/L (136-145); Total Protein 5.9 g/dL (6.4-8.2)
== END 2024-07-24 13:21 | disposition home or self-care (01) ==
LOC: LAB 13:23
PROVIDERS: PCP Family Medicine; Visit Provider Nurse Practitioner Family
DX: E83.42 Hypomagnesemia (principal)
CPT/HCPCS: 36415; 80053; 83735

== ENCOUNTER 2024-08-02 15:33 | Emergency (ER) | payer MEDICARE, SELFPAY ==
[2024-08-02] VITALS (16 sets, daily range): BP systolic 118–158; BP diastolic 70–71; PULSE 67–125; TEMP 36.6–36.8; O2SAT 97–99; BMI 18.1
--- OUTSIDE RECORDS SUMMARY | 2024-08-02 15:49 | XMS_ITS | CCD ---
Author Organization [facility] ion Partnership [facility] Care Team Providers Care Non Profit Job Titles Name Role Phone Tao Rooney MD Primary Care Provider [phone] SCOT ROGERS Primary Care Physician Tao Rooney MD Primary Care Provider [phone] NICOLETTE RICE Attending UnavailARELIS Rivera Referring Unavailable TAO ROONEY Primary Care Unavailable Tao Rooney MD Primary Care Provider [phone] TAO HEBERT Primary Care Unavailable [...] Unavailable FABRIZIO, DR LANCASTER Attending Unavailable SCOT RGOERS Consulting Unavailable TORIBIO ., DR BURGER Primary [...] Unavailable HOY ., DR BURGER Attending Unavailable LAMONA, DR JAZLYN Marcelino Consulting Unavailable SUE, SCOT [...] DR LANCASTER Admitting Unavailable HOY ., DR BRUGER Primary Care Unavailable MISC, DR LOONEY Admitting [...] INOPHEN] Drug Allergy 05-18-20 14 GI Upset [facility] Work Phone: (11 sources) Promethazine; Translations: [PROMETHAZINE HCL] Drug Allergy 10-11-20 05 Other: See Comments [facility] (3 sources) Levamisole; Translations: [Phenergan] Drug Allergy 04-07-20 13 [facility] (1 source) Morphine Drug Allergy [facility] (1 source) No Known Medication Allergies; Translations: [No Known Medication Allergies] Propensity to adverse reactions (disorder) [facility] Repository (2 sources) Promethazine; Translations: [promethazine] Drug Allergy 08-12-20 22 Loss of consciousness (finding) [facility] Medications Current Medications Medication Drug Class(es) [...] 04-08-2023 Episodic Other aftercare (1 source) Other manager long term care (current) drug therapy; Translations: [OTH 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 Daly for follow up on 09/14/2024. She verbalized understanding. [facility] 36on 07-21-2024 36 Regarding tacrolimus level drawn on 07/07/2024: MD Kaela Smith MA Did she have the echo? Her tacrolimus level is slightly high. I want a repeat in 2 months. *Dr. 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 Will you review this and then I will call Sylvia. Thanks. Normal [facility] Office Visiton 07-01-2024 Follow-up visit [id number] Sylvia Herrera 1945 F Date Provider Department Center 07/01/2024 ANISHA JACOBS JULIAN Wilson [facility] Family History Family history unknown: Yes Level of Service:42415 [place] OFFICE/OUTPATIENT ESTABLISHED MOD MDM 30 MIN Normal [facility] Activated partial thrombopla stin time (aPTT) in platelet poor plasma by coagulation aOrdered By: NON STAFF on 06-18-2024 aPTT Coag (PPP) [Time] 31.8 s 25.1-36.5 [facility] Comment on above: A hematocrit value g reater than 55% may lead to inaccurate results in coagulation testing. Patients having hematocrit values >55% require a special collection tube for coagulation studies. Please contact the laboratory at [phone] for redraw instructions. INR in Platelet poor plasma by Coagulation assayOrdered By: NON STAFF on 06-18-2024 INR Coag (PPP) [Relative time] 1.3 {INR} [facility] Comment on above: INR Therapeutic Rang e [...] Performed By: #### P TT, PT #### [facility] [address] [place] [address] Partial Thromboplastin Timeo n 07-18-2024 aPTT Coag (Bld) [Time] 31.8 s Normal 25.1-36.5 [facility] Comment on above: Result Comment: A he matocrit value greater than 55% may lead to inaccurate results in coagulation testing. Patients having hematocrit values >55% require a special collection tube for coagulation studies. Please contact the laboratory at [phone] for redraw instructions. PERFORMED BY: [facility] [address] [place] [address] PATHOLOGIST DIESEL POWERPLANT MECHANIC ANDREIA ARRINGTON M.D. Performed By: #### P TT, PT #### [facility] [address] [place] [id number] [facility] Prothrombin time (PT)Ordered By: NON STAFF on 06-18-2024 PT Coag (PPP) [Time] 14.4 s High 9.0-12.9 [facility] Comment on above: A hematocrit value g reater than 55% may lead to inaccurate results in coagulation testing. Patients having hematocrit values >55% require a special collection tube for coagulation studies. Please contact the laboratory at [phone] for redraw instructions. Result Comment: A he matocrit value greater than 55% may lead to inaccurate results in coagulation testing. Patients having hematocrit values >55% require a special collection tube for coagulation studies. Please contact the laboratory at [phone] for redraw instructions. Performed By: #### P TT, PT #### [facility] [address] [place] [id number] [facility] 36on 04-06-2024 36 I reviewed [...] labs as ordered at last visit. Normal [facility] Telephoneon 04-06-2024 Telephone [id number] Sylvia Herrera 1945 F Date Provider Department Center 04/06/2024 ANISHA JACOBS JULIAN Hernandez Family History Family history unknown: Yes [facility] Orders Onlyon 03-18-2024 Orders Only [id number] Sylvia Herrera 1945 Provider Department Center 03/18/2024 Roman4-MITZY ISLAS GUS Hernandez Family History Family history unknown: Yes [facility] Office Visiton 02-03-2024 Follow-up visit [id number] Sylvia Herrera Erin 1945 Provider Department Center 02/03/2024 ANISHA JACOBS JULIAN Hernandez Family History Family history unknown: Yes Level of Service:33588 [place] OFFICE/OUTPATIENT ESTABLISHED MOD MDM 30 MIN [facility] Office Visiton 11-12-2023 Follow-up visit [id number] Sylvia Herrera Erin 1945 Provider Department Center 11/12/2023 ANISHA JACOBS JULIAN Hernandez Family History Family history unknown: Yes Level of Service:27298 [place] OFFICE/OUTPATIENT ESTABLISHED MOD MDM 30-39 MIN [facility] 36on 10-26-2023 36 Her tacrolimus level from 10/16/2023 was 1.4. still very low. I believe she is currently taking tacrolimus (Prograf) 0.5 mg bid. I want her to increase to 1 mg bid and obtain another trough level in 2-3 weeks. [facility] Telephoneon 10-26-2023 Telephone [id number] Sylvia Herrera Erin 1945 Provider Department Center 10/26/2023 ANISHA JACOBS JULIAN Hernandez Family History Family history unknown: Yes [facility] Orders Onlyon 09-30-2023 Orders Only [id number] Sylvia Herrera Erin 1945 Provider Department Center 09/30/2023 Paresh8-KAELA TURNER JULIAN Hernandez Family History Family history unknown: Yes [facility] 36on 08-15-2023 36 Her Tacrolimus troug h level (taken on 08/06/2023, reported 08/14/2023) was low at 1.4. She is currently taking tacrolimus 0.5 mg once a day. Please have her increase it to 0.5 mg twice a day and have a repeat Tacrolimus trough level in 2 weeks. Her target level is around 5-10 ng/ml. Normal [facility] Telephoneon 08-15-2023 Telephone [id number] SharonSylvia 1945 F Date Provider Department Center 08/15/2023 ANISHA JACOBS Family History Family history unknown: Yes Normal [facility] Office Visiton 08-07-2023 Follow-up visit [id number] SharonSylvia 1945 F Date Provider Department Center 08/07/2023 ANISHA JACOBS Family History Family history unknown: Yes Level of Service:98030 [place] OFFICE/OUTPATIENT ESTABLISHED MOD MDM 30-39 MIN Reason for Visit and Comments: Follow-up [798279] - 6 mo f/u no stress test or tacrolimus result as of 08/06 - does she plan on having stress test? Normal [facility] BMPon 04-08-2023 Creatinine [Mass/Vol] 1.3 mg/dL Normal 0.5-1.3 [facility] Comment on above: Performed By: #### 1 [id number], [id number] ####[facility] [address] [place] [address] Urea nitrogen [Mass/Vol] 36 mg/dL High 5-21 [facility] Comment on above: Performed By: #### 1 [id number], [id number], [id number] ####[facility] [address] [place] [address] Urea nitrogen/Creatinine [Mass ratio] 28 No Units High 10-20 [facility] Comment on above: Performed By: #### 1 [id number], [id number], [id number] ####[facility] [address] [place] [address] Anion gap [Moles/Vol] 11 mmol/L Normal 6-16 [facility] Comment on above: Performed By: #### 1 [id number], [id number], [id number] ####[facility] [address] [place] [address] Calcium [Mass/Vol] 8.6 mg/dL Low 8.9-11.1 [facility] Comment on above: Performed By: #### 1 [id number], [id number], [id number] ####[facility] [address] [place] [address] Chloride [Moles/Vol] 99 mmol/L Low 101-111 [facility] Comment on above: Performed By: #### 1 [id number], [id number], [id number] ####[facility] [address] [facility] [place] [address] CO2 [Moles/Vol] 25 mmol/L Normal 21-31 [facility] Comment on above: Performed By: #### 1 [id number], [id number], [id number] ####[facility] [address] [facility] [place] [facility] [place] [address] Glucose [Mass/Vol] 124 mg/dL Normal 55-199 [facility] Comment on above: Result Comment: If t his glucose result represents a fasting glucose, interpretation should refer to the following reference range: 55-99 mg/dL Performed By: #### 1 [id number], [id number], [id number] ####[facility] [address] [facility] [place] [place] [address] Potassium [Moles/Vol] 4.1 mmol/L Normal 3.5-5.3 [facility] Comment on above: Performed By: #### 1 [id number], 0135584, [id number] ####[facility] [address] [facility] [place] [facility] [place] [address] Sodium [Moles/Vol] 131 mmol/L Low 135-145 [facility] Comment on above: Performed By: #### 1 [id number], 4890655, [id number] ####[facility] [address] [facility] [address] CHEMISTRYOrdered By: SYSTEM SYSTEM on 04-08-2023 Anion gap [Moles/Vol] 11 mmol/L Normal 6 - 16 mEq/L [facility] Calcium [Mass/Vol] 8.6 mg/dL Low 8.9 - 11. 1 mg/dL [facility] Chloride [Moles/Vol] 99 mmol/L Low 101 - 1 11 mmol/L [facility] CO2 [Moles/Vol] 25 mmol/L Normal 21 - 31 mmol/L [facility] Remisol Creatinine [Mass/Vol] 1.3 mg/dL Normal 0.5 - 1.3 mg/dL [facility] Remisol GFR/1.73 sq M.predicted among non-blacks MDRD (S/P/Bld) [Vol rate/Area] 42 mL/min/1.73 m2 Low >=59mL/min/ 1.73 m2 [facility] Chem S Glucose [Mass/Vol] 124 mg/dL Normal 55 - 199 mg/dL [facility] Potassium [Moles/Vol] 4.1 mmol/L Normal 3.5 - 5.3 mmol/L [facility] Remisol Sodium [Moles/Vol] 131 mmol/L Low 135 - 145 mmol/L [facility] Remisol Troponin I.cardiac [Mass/Vol] 11.10 pg/mL Normal 10.10 - 27.10 pg/mL [facility] Remisol Urea nitrogen [Mass/Vol] 36 mg/dL High 5 - 21 mg/dL [facility] Remisol Urea nitrogen/Creatinine [Mass ratio] 28 mg/mg High 10 - 20 [facility] Remisol Troponin I.cardiac [Mass/Vol] 9.70 pg/mL Low 10.10 - 27.10 pg/mL [facility] Remisol Consent for Treatmenton Consent for Treatment [id number]#[id number]:12 7 Normal [facility] Discharge Instructionson Discharge Instructions [id number]#[id number]:127 Normal [facility] ED Clinical Summaryon 2022 ED Clinical Summary (Inserted Image. Tram ble to display) [address] [address] ED Clinical Summary Person Information Name: SYLVIA HERRERA [facility] Age: 77 Years : 1945 Sex: Female Language: Martiniquais PCP: SCOT ROGERS CNP Marital Status: Single [...] 04/08/2023 08:56:01 04/08/2023 08:56:01 04/08/2023 08:56:01 ADDRESS: [address] [place] [address] [phone] PHYS DOC NOTES: MEDICAL INFORMATION: Prescriptions Given: [...] With: Address: When: SCOT ROGERS [address] [facility] [place] [address] [phone] Business (1) In 3 days DIAGNOSIS: Chest pain; Hyponatremia Normal [facility] ED Note-Physicianon 04-08-20 ED Note-Physician Basic [...] and Complexity of Problems Differential Diagnosis: [] [facility] Data External documents reviewed: N/A My [...] 6 Hr. (more content not included)... Normal [facility] Comment on above: Result Comment: Elec [...] gland problems. ? Metabolic conditions, such as Boston's disease or syndrome of inappropriate antidiuresis (SIAD). [...] Follow these instructions at home: ? Take zfsj-oab-hgabfyq and prescription medicines only as told by [...] provider. Document Revised: 05/29/2022 Document Reviewed: 05/29/2022 [employer] Patient Education ? 2022 [employer] Pulmonary Medicine Nonspecific Chest Pain, Adult [...] health care (more content not included)... Normal [facility] ED Patient Summaryon 023 ED Patient Summary (Inserted Image. Tram ble to display) [place] [id number] Patient Discharge Instructions Person Information Name: SYLVIA HERRERA Age: 77 Years Arrival Date: 04/07/2023 21:18:46 Discharge Diagnosis: Chest pain; Hyponatremia Primary Care Physician: SCOT ROGERS CNP Provider Information Primary Provider: Richard Ca DO Advanced Union Carpenter:None The exam and treatment you received in the Emergency Department were for an urgent problem and are not intended as complete care. It is important that you follow up with a doctor, nurse practitioner, or physician?s assistant professor of dietetics for ongoing care. If your symptoms become [...] When: SCOT ROGERS [address] [place] [phone] Business (1) In 3 days In the event that this physician does not participate in your insurance network, please consult with your insurance company to find a nearby participating provider. Patient Education Materials: Hyponatremia; Nonspecific Chest Pain, Adult A MESSAGE TO ALL PATIENTS REGARDING OPIOIDS PRESCRIPTION OPIOIDS: WHAT YOU NEED TO KNOW Prescription opioids can be used to help relieve tcbbhvig-fu-ccjbfm pain and are often prescribed following a [...] be struggling with addiction, tell your health day care teacher and ask for guidance or call [facility] National Helpline at [phone]. v Source: [place] Departmen (more content not included)... Normal [facility] EMS Documentationon 04-08-20 EMS Documentation Please click on link to see report wetOnhr36NYSMCp4bAjEGEuY0+ gfvFCmkNKCEqXIeWEUiYtA4FHv 5OJYai1VqCOq2ZMxpEAF4RaGnX QovSCBb EZX8DHXaAXtcAq5MMZN5EnN1Qb 9NuA6tVXKjtuExSQBUD95uVYjm TjO3Yh9UVGC4BYp3Lm9+ICAg ICAgICAgICAgICAgICAgICAgIC AgICAgICAgICAgICAgICAgICAg ICAgICAgICAgICAgICAgICAg ICAgICAgICAgICAgICAgICAgIC ZRLzToVH3plf2LOGw6liOhQGz1 HAJ9PBqvJFLnRMXjQDYkLJRy YNVoDL9POuGmWCHqTDW4IVsvJG XfZSDbkc3SZMYqMYKbQTF0OPNw MDAwMCBuDQowMDAwMDAxODM3 DVPoTQBoLJ3QOdWqHDMsJAZ3Bh tiYOGzGOCsju3KYQQsBEIhQbUg OCAwMDAwMCBuDQowMDAwMDAy UafqJIQdVHEpZO9JArCkSGXfNT KgJZVzEEJeGRWkul1AZLLzZGQc BsJ7JwCpCIIvQCPtQLghKDFw VHNfSLRxXUDkOGQcNY5PBeDxUC VdMPB9QPjaDMBpRAPayg7ZCRIw JIFlGtd9PEZsLEBlMDBoOAdm OOCkZRTkPnC2HQHqIIYhTR9TQo HlPKWpKDY2DTGrOCJqHBEqsn5Z FTEdWHAtIIS5FRWfLDEcBJBi UIrsIOZrTRQ4JyZgCDQtZPGgVT 5SDvFyYSKkFFJ3HuqsJEAyIZLz mu6AIASqSCNvLYr3PTRtYWCg VBYhWQgiQVSbTFB7HzE7FQFsDV WiRQ9PKpTwYSBwSCJ8JbjjSNWx BNBdme4QJLEvJBHmNLolRPWo MKZmIOKrPSbdUAWrTPI9ALV5LI QmADPqVU8UDxQeBUWfQWJ2Yyvy FQIcWMLsqi9NSLVlYEWhWne1 SaYqFRBuPJOoNJyaYXIfRTO1EC S1TJHmJQOyOM5DQnKyVKTeZRza JKXuUUArIOFxjt8ERTMgJRWi OTkyMiAwMDAwMCBuDQowMDAwMD J4NHL7OXUmNPAlBD0AZiDpLYag QHHTMfn1Pa5AGJJwJFNEPPDH G8HbTBWHDoqPLXF1KKJ6QWj1XN VmLPxtByH1Tja1SmKSTDB0Viq1 QLcZNCU6JAu3DDBLE2M9WZuM NTZDRTA+IJkcZHUrfzR7IzJ6Ve rvZg5jvUJ1QDNvBdfeT0f3IGUj UnorD591iuWhUIwKBXlEXrsL TyWdWgO7wITUGEZXN3J7Q05rU8 6hSJ8KRIooD3r2QigFOOI2YLuY yMnASvKqO78oFKyvTTHcR2Ad ZeebxPziHNH1B3MrvNO6M3skn3 4vLOUCXGwVc9tsQYT5K74TJjrC MveEfsTSX7s2fAPLpEH1Wajf N4khOpFrOMJADDSzPxEfOumND2 UOR8mAFw2gKm5+ICAgICAgICAg ICAgICAgICAgICAgICAgICAg ICAgICAgICAgICAgICAgICAgIC AgICAgICAgICAgICAgICAgICAg ICAgICAgICAgICAgICAgICAg ICAgICAgICAgICAgICAgICAgIC AgICAgICAgICAgICAgICAgICAg ICAgICAgICAgICAgICAgICAg ICAgICAgICAgICAgICAgICAgIC AgICAgICAgICAgICAgICAgICAg ICAgICAgICAgICAgICAgICAg ICAgICAgICAgICAgICAgICAgIC AgICAgICAgICAgICAgICAgICAg ICAgICAgICAgICAgICAgICAg ICAgICAgICAgICAgICAgICAgIC AgICAgICAgICAgICAgICAgICAg ICAgICAgICAgICAgICAgICAg ICAgICAgICAgICAgICAgICAgIC AgICAgICAgICAgICAgICAgICAg ICAgICAgICAgICAgICAgICAg ICAgICAgICAgICAgICAgICAgIC AgICAgICAgICAgICAgICAgICAg ICAgICAgICAgICAgICAgICAg HQOZQlI4PXO2kVAqHa6FYA4CUL IDH0TJZy5QNBGkCS0mxe5AZNsB V58ctOBkXWLjOLObJJVVRw3R rXTvTGE0gZ5aIDq3FGRvYcfzQc a3SQ6GP417nZjetiDxZYShUFDA Gj1JOKckKG0hDHJfOZHhBw2p OQalQMWvMUGlDaMgIDFZO6J0nT ZvD2HxnASsq4eRVg7BSqDrGD6h vi7NVMr6ZTAep3EnTUp4XPyg FfosdSOaGK7RiDY2MJGxE10aSP pdCBZkJ5CbZISrQKniBoU9Bew+ Ou7Bn6YqVHNmPVm4yYHpGGPm YGDLYFBgYLjCAyLhQAEKUxiwAr L6FoHxWFKj5WIrYHMg84MMTkOx AcYySXinNgMonLJU0YldWvHI VWla2RjNIwBEEmWSvhU6UKhqBO RUDfuMSRq7JlOpJteZ5VjOriEt 3P7HEHWMYutYFqHtCRF4elHi oP4YLS7ti9JeWGjWVwtwEGXrBs qHEve4Wg5Mk580TA47niDcLdAv LTPZJYmqVERbnNJVl0ciEhDc FBS7PJXzHroiXWaxCMOyXP26JK QhQGHTZc5RYGCawIZvNGQcHHjY F2oNExfrV0CgPGyJC5dbAbG9 IDggMCBSCj4+Cj4+Os3HxNBnMA 1FNWkjBw1+FNkxbeQhQasKSj2R HYWoWX7gkq3DKKdTH0MGg4np VkRjIUM3PCQjOhbcSJasBbmsjD TaQQ0LtLS7WUPuB51wTSlqVUHv B2WePQj9Og4LGZRkuYGbQVDx MQpAU3dZJsiwH6OcKBrSG5haXg W2APR6WSYsIhl+Pgo+TexrX6Xf cKdrWZMtGd4zyYarQDlhKFRx HP6qepQdsZm+Ff4Ry7JmGCXhKG b2gUCW1GTl9UTmZYFqXSJ8MZDv xfOYANoz8ZjNnYKlEsUrmZRs N5hqKNNk84nUSONcSmuIi2dcEp Me3CfAND+RJ6TLhyQmKiKkzo9L NWjjehEaoKCcWJ9QAzBfWO0b ak4DPUt5PYCuo5BuQTj5QWcbZt 1bJ80ovb4qqYibF3AsUBc+Pg0K IH8gj0WjEBlOWjGbHDSms6Iv ODi0XCdvWf2iH81zer3ptGfxV0 EgMQovTEMgMAovTEogMAovTFcg YAhnGKfrDLgbM5NowHA5FHhv I3DwMOm+Zm3NXD5oi1PzKIcDFx XcHOAmx0BnVYb2SVzzHl1tB45f ho0otLihA5NuVT7pRfSsKoyk TEMgMAovTEogMAovTFcgMQovTU avLXghG1QzuGH7EXvpG9VgPI6c MzMzMwo+Xi0LUU7rw4MqXVcO QeTxFTZfx0TfMRk8WCruXo2bV3 5vha9uvJnbR1RhLM7gZBKwDGs+ Ds1CLP4xx0PvRYzRKjBvUVBi p1VaMWv3OJalXa4vQ52cal6fhR pyW5GgED1xWIZ3RBivVSAdTFen TEogMAovTFcgMQovTUwgNAov E9MkgPY3RIxmI6LiNY3jWMY0IK o+Pk3MQC4ie7DvJJfVNxK3FPRn k8LcTMy2DWroVSV2mnn6OKmg Blv9FEWaZVAyXJ11KFRhQOv2Ko 6ZY9FpoQPjkn4QkBAmDKULL8Mh IXYqjmdbSHjWV7LcuP0yC8Wi O7PeP4MgfeuzYZLCDiaxH41qoo NsVWowWLB2TKRaVEU6YT3UW5G1 fDZsBJBqoKT9CEd6yaJfWXqu OgIbP5Awo31tSBaUD6SxDStbDh m8FmVgVxe8JtMyJhq1Q92ZL9Ss UMtpCxp6YyQoHyi0OzYvMwb3 B74ND8DqgTZkiiScZAQgKDviPp GeS9Nhb69QtJDkVBBBB25dVTm+ FmumU4uiUVpkR7X1cDKaHia+ PmxtTJisKTTrXOT7cDXxxxt+Pg 3PAF4tb2LuAFuRLrU0XZSgz2Ze JTa9JCxrBKN2bwg5WWedEyq8 HVCySSTvZG43THSlSQu9Jo1ZT5 CmzXUbyg2TpKUdHPJBA1IqZPCo samjIQrCR1QqbA1sA3BdX2Iu A0IpbgokORMRDahxO17smkGrQS c1QVK4NcJ5YIL3Xp51Pk8IA1H8 yFAjLRMxxFR4YTm1imIyKZgu OqLiG9Gvq26bZNmMW7UjtH0vio SyEQ19HXlhUP0xGOcjSCuhPXBe Bf6GslPrTPQhMsFyJYSzKXEz Hk8LoK5xsXppoqS2mEJqOlsjRq LgC1Rlt03mOJo2OSvdBtFlWgXd SAA7BVJmVYB8PRFtLVR1XRgt ZhGaPtFlGUQ5MJFuSFO5PTBxOJ C8RZpcXO0bRJchUMniYMJsLx9P tB3ceQcmetI0jLMmNqqjXxYs Cj4+Lnj8Lz7ENJIiZZ03DojpYM 32BazsGX38DlghUg7AXCNxEG23 YkEpGH51ZrWwER40DsRvOh2A g46lmW0cEtWzUW4LO5A4bxA2gP 7wCGecJFSyXy1PLYTUNw2yWy3+ Hq0OfYEipT0vFPkrSQExUg6+ Cg4HgBKeXC2IOFE7GDVsSp3+DQ iqfgOrGyfQHu2CFCYlRVVpCbdH Vqj4Rr8XFCKhQy4foKXjNCjY UI0KP4UuW27pCDwAV4Wil0Lepv XxsfVPy506muXwYWhrQOLDHXms YW9rx6LkdyusD5wnYL40tJS7 FWzOZ5F0NjH0pZTaD2S3pGHhYk 6Up7GgpYQmIGCgWDsaCJDGGy4U xGXiYV1Ue732En3+DQplbmRv MivREa8WZGwvPLOoDcpVLxn0Rt 9OISKyDq8hgEDwWMaIIM3IZ4Lo Z47iKTsPC6YALBF2s6ZmlGdk Sm7eCDaDP51rMYDskD9zRObSFZ YkbZr4fUwCJ1EnV0qcrMB3NEyE ZG9i (more content not included)... Normal [facility] EMS Documentation Please click on link to see report Normal [facility] Comment on above: Result Comment: Miss ing Attachment - attachment exceeds size limitation [id number] Can be viewed in source system EMS Documentation [id number]#[id number]:127 [facility] Monitor Recordon 04-08-2023 Monitor Record [id number]#[id number]:127 [facility] Progress Note-Nurseon 2022 Progress Note-Nurse Pt. requesting food, Dr. Ca aware. Pt. given food per verbal order from Dr. Ca. Normal [facility] Troponin 0 Hr.on 04-08-2023 Troponin I.cardiac [Mass/Vol] 9.20 pg/mL Low 10.10-27.10 [facility] Comment on above: Result Comment: The 95% CI (Confidence Interval) PPV (Positive Predictive Value) for myocardial infarction in females is 38 pg/mL, in males 51 pg/mL. The results should be used in conjunction with clinical conditions of myocardial infarction. (Access High Sensitivity Troponin I Instructions For Use, Kermit Thaddeus, July 2018) Performed By: #### 2 [id number], [id number], [id number], [id number], [id number] ####[facility] [address] [place] [address] Troponin 3 Hr.on 04-08-2023 Troponin I.cardiac [Mass/Vol] 9.70 pg/mL Low 10.10-27.10 [facility] Comment on above: Result Comment: The 95% CI (Confidence Interval) PPV (Positive Predictive Value) for myocardial infarction in females is 38 pg/mL, in males 51 pg/mL. The results should be used in conjunction with clinical conditions of myocardial infarction. (Access High Sensitivity Troponin I Instructions For Use, [employer], July 2018) Performed By: #### 1 [id number] ####[facility] [address] [place] [address] Troponin 6 Hr.on 04-08-2023 Troponin I.cardiac [Mass/Vol] 11.10 pg/mL Normal 10.10-27.10 [facility] Comment on above: Result Comment: The 95% CI (Confidence Interval) PPV (Positive Predictive Value) for myocardial infarction in females is 38 pg/mL, in males 51 pg/mL. The results should be used in conjunction with clinical conditions of myocardial infarction. ([employer] High Sensitivity Troponin I Instructions For Use, [employer], July 2018) Performed By: #### 1 [id number], [id number], [id number] ####[facility] [address] [place] [address] XR Chest Single Viewon 04-08 XR Chest [...] mGy = na DAP = na Normal [facility] eGFRon 04-08-2023 GFR/1.73 sq M.predicted among non-blacks MDRD (S/P/Bld) [Vol rate/Area] 42 mL/min/1.73 m2 Low >=59 [facility] Comment on above: Order Comment: Order added by Discern Expert. Result Comment: Diver Pumper brennan kidney disease could be indicated at eGFR's of less than 60 mL/min/1.73m2. Kidney failure is indicated at less than 15 mL/min/1.73m2. Performed By: #### 1 [id number], [id number], [id number] ####[facility] [address] [place] [address] Auto Diffon 04-07-2023 Basophils/100 WBC (Bld) 0.4 % Normal 0.0-2.0 [facility] Comment on above: Order Comment: Order Added by Discern Expert. Performed By: #### 2 [id number], [id number], [id number], [id number], [id number], [id number] ####[address] [place] [address] Basophils/Leukocytes Auto (Bld) [Pure # fraction] 0.0 E9/L Normal 0.0-0.2 [facility] Comment on above: Order Comment: Order Added by Discern Expert. Performed By: #### 2 [id number], [id number], [id number], [id number], [id number], [id number] ####[address] [place] [address] Eosinophils/100 WBC (Bld) 3.0 % Normal 0.0-8.0 [facility] Comment on above: Order Comment: Order Added by Discern Expert. Performed By: #### 2 [id number], [id number], [id number], 9261409, [id number], [id number] ####[address] [address] Eosinophils/Leukocyt es Auto (Bld) [Pure # fraction] 0.2 E9/L Normal 0.0-0.5 [facility] Comment on above: Order Comment: Order Added by Discern Expert. Performed By: #### 2 [id number], [id number], [id number], [id number], [id number], [id number] ####[address] [place] [address] Lymphocytes/100 WBC (Bld) 15.4 % Normal 14.0-50.0 [facility] Comment on above: Order Comment: Order Added by Discern Expert. Performed By: #### 2 [id number], [id number], 5605660, 5066509, [id number], [id number] ####[address] [address] Lymphocytes/Leukocyt es Auto (Bld) [Pure # fraction] 1.1 E9/L Normal 1.0-4.0 [facility] Comment on above: Order Comment: Order Added by Discern Expert. Performed By: #### 2 [id number], [id number], 5644415, 5504756, [id number], [id number] ####[address] [address] [address] Monocytes/100 WBC (Bld) 12.8 % Normal 4.0-14.0 [facility] Comment on above: Order Comment: Order Added by Discern Expert. Performed By: #### 2 899619, 28642796, 0507974, 7669363, 91553899, 43815564 ####[address] [address] Monocytes/Leukocytes Auto (Bld) [Pure # fraction] 0.9 E9/L Normal 0.2-1.0 [facility] Comment on above: Order Comment: Order Added by Discern Expert. Performed By: #### 2 603823, 16652731, 3692830, 9833341, 04327433, 75231144 ####[address] [address] Neutrophils/100 WBC (Bld) 68.4 % Normal 36.0-75.0 [facility] Comment on above: Order Comment: Order Added by Discern Expert. Performed By: #### 2 382596, 69444289, 8591541, 9043162, 56459030, 10026952 ####[address] [address] Neutrophils/Leukocyt es Auto (Bld) [Pure # fraction] 5.0 E9/L Normal 2.0-7.5 [facility] Comment on above: Order Comment: Order Added by Discern Expert. Performed By: #### 2 904557, 49771562, 4544445, 6464886, 13360356, 13471314 ####[facility] [address] [place] [address] BMPon 04-07-2023 Creatinine [Mass/Vol] 1.5 mg/dL High 0.5-1.3 [facility] Comment on above: Performed By: #### 2 216064, 37176040, 8552391, 6966578, 94659529, 12980321 ####[facility] [address] [place] [address] Urea nitrogen [Mass/Vol] 40 mg/dL High 5-21 [facility] Comment on above: Performed By: #### 2 473673, 30593754, 5976446, 4590255, 64761323, 95742438 ####[facility] [address] [place] [address] Urea nitrogen/Creatinine [Mass ratio] 27 No Units High 10-20 [facility] Comment on above: Performed By: #### 2 186350, 89792622, 0478600, 0511413, 58004860, 09568208 ####[facility] [address] [place] [address] Anion gap [Moles/Vol] 11 mmol/L Normal 6-16 [facility] Comment on above: Performed By: #### 2 195940, 41027994, 7922232, 7184906, 77840991, 15958236 ####[facility] [address] [place] [address] Calcium [Mass/Vol] 8.6 mg/dL Low 8.9-11.1 [facility] Comment on above: Performed By: #### 2 508675, 51821850, 9895437, 0875398, 94657923, 47211194 ####[facility] [address] [place] [address] Chloride [Moles/Vol] 96 mmol/L Low 101-111 [facility] Comment on above: Performed By: #### 2 736330, 83777043, 3130596, 0071843, 52488691, 98762654 ####[facility] [address] [place] [address] CO2 [Moles/Vol] 24 mmol/L Normal 21-31 [facility] Comment on above: Performed By: #### 2 197157, 57614282, 0570990, 4129555, 76224626, 46292310 ####[facility] [address] [place] [address] Glucose [Mass/Vol] 139 mg/dL Normal 55-199 [facility] Comment on above: Result Comment: If t his glucose result represents a fasting glucose, interpretation should refer to the following reference range: 55-99 mg/dL Performed By: #### 2 924327, 64314071, 8912895, 5218676, 56956942, 75632249 ####[facility] [address] [place] [address] Potassium [Moles/Vol] 4.4 mmol/L Normal 3.5-5.3 [facility] Comment on above: Performed By: #### 2 330608, 83842537, 7205703, 0430690, 16993079, 25212080 ####[facility] [address] [place] [address] Sodium [Moles/Vol] 127 mmol/L Low 135-145 [facility] Comment on above: Performed By: #### 2 837539, 88121401, 0047171, 5836562, 26471619, 26313887 ####[facility] [address] [place] [address] CBC w/ Auto Diffon 3 Erythrocyte distribution width (RBC) [Ratio] 13.0 % Normal 10.9-14.2 [facility] Comment on above: Performed By: #### 2 397407, 30331180, 6866781, 6124180, 10172229, 88605442 ####[facility] [address] [place] [address] Hematocrit (Bld) [Volume fraction] 38.4 % Normal 34.0-46.0 [facility] Comment on above: Performed By: #### 2 747046, 51494433, 5951720, 5390726, 47426600, 99232310 ####[address] [address] Hemoglobin (Bld) [Mass/Vol] 12.6 g/dL Normal 12.0-16.0 [facility] Comment on above: Performed By: #### 2 451469, 57485623, 4952464, 5098257, 24876194, 98983175 ####[address] [address] MCH (RBC) [Entitic mass] 27.9 pg Normal 27.0-34.0 [facility] Comment on above: Performed By: #### 2 754062, 69401024, 3738713, 9296683, 28413711, 09346948 ####[address] [address] MCHC (RBC) [Mass/Vol] 32.7 g/dL Normal 31.4-36.0 [facility] Comment on above: Performed By: #### 2 652186, 13903505, 8937721, 4148161, 19035812, 91095453 ####[address] [address] MCV (RBC) [Entitic vol] 85.3 fL Normal 80.0-100.0 [facility] Comment on above: Performed By: #### 2 798096, 83888622, 1777145, 5872542, 71676591, 57734036 ####[facility] [address] [place] [address] Platelet mean volume (Bld) [Entitic vol] 7.3 fL Normal 6.4-10.8 [facility] Comment on above: Performed By: #### 2 126591, 14459950, 2870860, 0988661, 45974687, 81313110 ####[facility] [address] [place] [address] Platelets (Bld) [#/Vol] 167.0 E9/L Normal 150.0-500.0 [facility] Comment on above: Performed By: #### 2 660422, 63830651, 0657939, 5148037, 26194369, 71607525 ####[facility] [address] [place] [address] RBC (Bld) [#/Vol] 4.5 E12/L Normal 4.3-5.9 [facility] Comment on above: Performed By: #### 2 908967, 46818099, 9133098, 1852981, 00461072, 84604027 ####[facility] [address] [place] [address] WBC corrected for nucl RBC Auto (Bld) [#/Vol] 7.3 E9/L Normal 4.0-11.0 [facility] Comment on above: Performed By: #### 2 566934, 09403045, 8787959, 8815358, 36406216, 37848034 ####[facility] [address] [place] [address] CHEMISTRYOrdered By: SYSTEM SYSTEM on 04-07-2023 Anion [...] Coag (PPP) [Time] 27.1 second(s) Normal 25.1-36.5 [facility] Comment on above: Result Comment: Para [...] the same coagulation reagent and instrumentation as [facility]. Currently there are no coagulation studies available worldwide for children to 14 days, and no normal ranges. Heparin therapeutic range (represented by Anti-Factor Xa activity of 0.2 - 0.4 U/mL) corresponds to PTT of 56.6 - 109.0 sec. Performed By: #### 2 148534, 14623026, 9515460, 7864742, 02663456, 46832041 ####[facility] [address] [place] [address] INR Coag (PPP) [Relative time] 1.2 {INR} Invalid Interpretation Code [facility] Comment on above: Result Comment: INR results are specifically intended to assess patients stabilized on long-term Anticoagulation therapy suggested INR?s ?Less Intensive Anticoagulation? 2.0 ? 3.0 Conventional Range 3.0 ? 4.5 Performed By: #### 2 734278, 70997058, 5974114, 7456516, 36372408, 93187437 ####[facility] [address] [place] [address] PT Coag (PPP) [Time] 12.9 second(s) High 9.4-12.5 [facility] Comment on above: Result Comment: 15 [...] the same coagulation reagent and instrumentation as [facility]. Currently there are no coagulation studies available worldwide for children to 14 days, and no normal ranges. Performed By: #### 2 748092, 53681875, 8135490, 9796912, 88613094, 87903862 ####[facility] [address] [place] [address] Pre-Arrival Noteon 3 Pre-Arrival Note Pre-Arrival Summary Name: , YAZMIN Current Date: 04/07/2023 21:19:11 EDT Gender: Female Date of : Age: 77 Pre-Arrival Type: EMS ETA: 04/07/2023 21:15:00 EDT Primary Care Physician: Presenting Problem: chest pain Pre-Arrival User: Natalia Fischer RN Referring Source: Location: Completion Date/Time: 04/07/2023 21:06:00 [facility] Emergency Department Pre-Hospital Report Form _ Vital Signs: Pre-Hospital Report: Treatment in Route: Response to Treatment: Misc. Issues: Normal [facility] eGFRon 04-07-2023 GFR/1.73 sq M.predicted among non-blacks MDRD (S/P/Bld) [Vol rate/Area] 35 mL/min/1.73 m2 Low >=59 [facility] Comment on above: Order Comment: Order added by Discern Expert. Result Comment: Diver Pumper brennan kidney disease could be indicated at eGFR's of less than 60 mL/min/1.73m2. Kidney failure is indicated at less than 15 mL/min/1.73m2. Performed By: #### 2 852989, 46504732, 4118585, 8551064, 66952923, 40355424 ####[facility] [address] [place] [address] INFLUENZA A AND B AGon 03-05 INFLUANEGH SEE BELOW Normal [facility] Comment on above: Result Comment: Nega tive for Flu A protein angiten. Infection due to Flu A cannot be ruled out. Flu A angiten in the sample may be below the detection limit of the test. Performed By: #### E RUR #### [facility] [address] [place] [address] Dr. Hardeep Rivera INFLUBNEGH SEE BELOW Normal [facility] Comment on above: Result Comment: Nega tive for Flu B protein antigen. Infection due to Flu B cannot be ruled out. Flu B antigen in the sample may be below the detection limit of the test. Performed By: #### E RUR #### [facility] [address] [place] [address] Dr. Hardeep Rivera INFLUENZA A AG Negative Normal NEGATIVE SEE COMMENT [facility] Comment on above: Performed By: #### E RUR #### [facility] [address] [place] [address] Dr. Hardeep Rivera INFLUENZA B AG Negative Normal NEGATIVE SEE COMMENT [facility] Comment on above: Performed By: #### E RUR #### [facility] [address] [place] [address] Dr. Hardeep Rivera SYMPTOMATIC COVID-19 ANTIGEN on 03-05-2023 EUA Statement SEE BELOW Normal [facility] Comment on above: Result Comment: This [...] revoked sooner. Performed By: #### C IMANIS ####[facility] [address] [place] [address]Dr. Hardeep Rivera SARS-CoV-2 (COVID-19) RNA ULICES+probe Ql (Unsp spec) Positive Abnormal NEGATIVE [facility] Comment on above: Performed By: #### C IMANIS ####[facility] [address] [place] [address]DrLaura Rivera FK506 (TACROLIMUS) WHOLE BLO ODon 02-28-2023 Tacrolimus (FK506), Blood 5.8 ng/mL Normal 2.0-20.0 [facility] Comment on above: Result Comment: Trou gh (immediately following transplant) 15.0 . Trough (steady state, 2 weeks or more after transplant): 3.0 - 8.0 . Performed by LC-MS/MS technology. Performed By: #### F K506T ####[facility] [address] [place] [address]Dr. Hardeep Rivera CBC AUTO DIFFon 02-14-2023 BASO # 0.0 103/ul Normal 0.0-0.1 [facility] Comment on above: Performed By: #### RANDALL OLSON #### [facility] [address] [place] [address] Dr. Hardeep Rivera Basophils/100 WBC (Bld) 0.5 % Normal 0.2-2.0 [facility] Comment on above: Performed By: #### RANDALL OLSON #### [facility] [address] [place] [address] Dr. Hardeep Rivera EO # 0.2 103/ul Normal 0.0-0.7 [facility] Comment on above: Performed By: #### RANDALL OLSON #### [facility] [address] [place] [address] Dr. Hardeep Rivera Eosinophils/100 WBC (Bld) 3.5 % Normal 0.9-7.0 [facility] Comment on above: Performed By: #### HARI OLSONRO #### [facility] [address] [place] [address] Dr. Hardeep Rivera Erythrocyte distribution width (RBC) [Ratio] 12.3 % Normal 11.0-15.0 [facility] Comment on above: Performed By: #### HARI OLSONRO #### [facility] [address] [place] [address] Dr. Hardeep Rivera Hematocrit (Bld) [Volume fraction] 38.7 % Normal 36.0-48.0 [facility] Comment on above: Performed By: #### HARI OLSONRO #### [facility] [address] [place] [address] Dr. Hardeep Rivera Hemoglobin (Bld) [Mass/Vol] 12.6 g/dL Normal 12.0-16.0 [facility] Comment on above: Performed By: #### HARI OLSONRO #### [facility] [address] [place] [address] Dr. Hardeep Rivera IG # 0.03 10e3/ul Normal 0.00-0.03 [facility] Comment on above: Performed By: #### HARI OLSONRO #### [facility] [address] [place] [address] Dr. Hardeep Rivera IG % 0.5 % Normal 0.0-0.5 [facility] Comment on above: Performed By: #### HARI OLSONRO #### [facility] [address] [place] [address] Dr. Hardeep Rivera LYMPH # 0.8 103/ul Critically low 1.2-3.8 [facility] Comment on above: Performed By: #### HARI OLSONRO #### [facility] [address] [place] [address] Dr. Hardeep Rivera Lymphocytes/100 WBC (Bld) 13.2 % Critically low 20.5-60.0 [facility] Comment on above: Performed By: #### HARI OLSONRO #### [facility] [address] [place] [address] Dr. Hardeep Rivera MANUAL DIFF REQ NO Normal [facility] Comment on above: Performed By: #### Deedee PINON UMICRO #### [facility] [address] [place] [address] Dr. Hardeep Rivera MCH (RBC) [Entitic mass] 28.3 pg Normal 26.7-34.0 [facility] Comment on above: Performed By: #### Deedee PINON UMICRO #### [facility] [address] [place] [address] Dr. Hardeep Rivera MCHC (RBC) [Mass/Vol] 32.6 g/dL Normal 29.9-35.2 [facility] Comment on above: Performed By: #### Deedee PINON UMICRO #### [facility] [address] [place] [address] Dr. Hardeep Rivera MCV (RBC) [Entitic vol] 87.0 fL Normal 81.0-99.0 [facility] Comment on above: Performed By: #### Deedee PINON UMICRO #### [facility] [address] [place] [address] Dr. Hardeep Rivera MONO # 0.8 103/ul Normal 0.3-0.8 [facility] Comment on above: Performed By: #### Deedee PINON UMICRO #### [facility] [address] [place] [address] Dr. Hardeep Rivera Monocytes/100 WBC (Bld) 12.9 % Critically high 1.7-12.0 [facility] Comment on above: Performed By: #### Deedee PINON UMICRO #### [facility] [address] [place] [address] Dr. Hardeep Rivera NEUT # 4.4 103/ul Normal 1.4-6.5 [facility] Comment on above: Performed By: #### Deedee PINON UMICRO #### [facility] [address] [place] [address] Dr. Hardeep Rivera Neutrophils/100 WBC (Bld) 69.4 % Normal 43.0-75.0 [facility] Comment on above: Performed By: #### Deedee PINON, UMICRO #### [facility] [address] [address] [address] Hardeep Rivera Platelet mean volume (Bld) [Entitic vol] 9.0 fL Critically low 9.5-13.5 [facility] Comment on above: Performed By: #### Deedee PINON, UMICRO #### [facility] [address] [address] [address] Hardeep Rivera PLT 205 103/ul Normal 150-450 [facility] Comment on above: Performed By: #### Deedee PINON, UMICRO #### [facility] [address] [address] [address] Hardeep Rivera RBC 4.45 106/ul Normal 4.20-5.40 [facility] Comment on above: Performed By: #### Deedee PINON, UMICRO #### [facility] [address] [address] [address] Hardeep Rivera WBC 6.3 103/ul Normal 4.0-11.0 [facility] Comment on above: Performed By: #### Deedee PINON, UMICRO #### [facility] [address] HEAD WO CONon [...] CAMERON NELSON Date: 2023-02-14 15:46 Normal [facility] ER URINE PROFILEon 3 Bilirubin Ql (U) Negative Normal NEGATIVE [facility] Comment on above: Performed By: #### Deedee PINON UMICRO #### [facility] [address] [place] [address] Dr. Hardeep Rivera Clarity (U) CLEAR Normal CLEAR [facility] Comment on above: Performed By: #### Deedee PINON UMICRO #### [facility] [address] [place] [address] Dr. Hardeep Rivera Color (U) LT. YELLOW Normal YELLOW [facility] Comment on above: Performed By: #### Deedee PINON UMICRO #### [facility] [address] [place] [address] Dr. Hardeep Rivera ERUCHIDI A micrscopic examina tion will be performed if indicated. Normal [facility] Comment on above: Performed By: #### Deedee PINON UMICRO #### [facility] [address] [place] [address] Dr. Hardeep Rivera Glucose Ql (U) Negative Normal NEGATIVE [facility] Comment on above: Performed By: #### Deedee PINON UMICRO #### [facility] [address] [place] [address] Dr. Hardeep Rivera Hemoglobin Ql (U) TRACE-INTACT Abnormal NEGATIVE [facility] Comment on above: Performed By: #### Deedee PINON UMICRO #### [facility] [address] [place] [address] Dr. Hardeep Rivera Ketones Ql (U) Negative Normal NEGATIVE [facility] Comment on above: Performed By: #### Deedee PINON UMBENNETTRO #### [facility] [address] [place] [address] Dr. Hardeep Rivera LEUKOCYTES Negative Normal NEGATIVE [facility] Comment on above: Performed By: #### Deedee PINON UMICRO #### [facility] [address] [place] [address] Dr. Hardeep Rivera Nitrite Ql (U) Negative Normal NEGATIVE [facility] Comment on above: Performed By: #### Deedee PINON UMICRO #### [facility] [address] [place] [address] Dr. Hardeep Rivera pH (U) 7.0 [pH] Normal 5-9 [facility] Comment on above: Performed By: #### Deedee PINON UMICRO #### [facility] [address] [place] [address] Dr. Hardeep Rivera Protein (U) [Mass/Vol] 30 mg/dL Abnormal NEGATIVE/ TRACE [facility] Comment on above: Performed By: #### Deedee PINON UMICRO #### [facility] [address] [place] [address] Dr. Hardeep Rivera SPEC GRAVITY 1.010 Normal 1.005-<=1.0 25 [facility] Comment on above: Performed By: #### Deedee PINON UMICRO #### [facility] [address] [place] [address] Dr. Hardeep Rivera UR MICRO IND INDICATED Normal [facility] Comment on above: Performed By: #### Deedee PINON UMICRO #### [facility] [address] [place] [address] Dr. Hardeep Rivera Urobilinogen Qn (U) 0.2 {Kevon'U}/dL Normal 0.2 - 1. 0 [facility] Comment on above: Performed By: #### Deedee PINON UMICRO #### [facility] [address] [place] [address] Dr. Hardeep Rivera PROF 14(COMP METB)on 023 Albumin [Mass/Vol] 3.5 g/dL Normal 3.4-5.0 [facility] Comment on above: Performed By: #### H STROPN, CMP, TSH ####[facility] [address] [place] [address]Dr. Hardeep Rivera Albumin/Globulin [Mass ratio] 1.2 {ratio} Normal [facility] Comment on above: Performed By: #### H TYLER CMP, TSH ####[facility] [address] [place] [address]Dr. Preethiarabella Rivera ALP [Catalytic activity/Vol] 153 U/L Critically high 46-116 [facility] Comment on above: Performed By: #### H TYLER, CMP, TSH ####[facility] [address] [place] [address]Dr. Hardeep Rivera ALT [Catalytic activity/Vol] 21 U/L Normal 14-59 [facility] Comment on above: Performed By: #### H TYLER CMP, TSH ####[facility] [address] [place] [address]Dr. Hardeep Rivera Anion gap [Moles/Vol] 9.3 mmol/L Normal [facility] Comment on above: Performed By: #### H TYLER CMP, TSH ####[facility] [address] [place] [address]Dr. Hardeep Rivera AST [Catalytic activity/Vol] 23 U/L Normal 15-37 [facility] Comment on above: Performed By: #### H TYLER CMP, TSH ####[facility] [address] [place] [address]Dr. Hardeep Rivera Bilirubin [Mass/Vol] 0.6 mg/dL Normal 0.2-1.0 [facility] Comment on above: Performed By: #### H STRONATHANIEL, CMP, TSH ####[facility] [address] [place] [address]Dr. Hardeep Rivera Calcium [Mass/Vol] 8.4 mg/dL Critically low 8.5-10.1 [facility] Comment on above: Performed By: #### H STRONATHANIEL, CMP, TSH ####[facility] [address] [place], [place] [address]Dr. Hardeep Rivera Chloride [Moles/Vol] 96 mmol/L Critically low 98-107 [facility] Comment on above: Performed By: #### H STROPN, CMP, TSH ####[facility] [address] [place] [address]Dr. Hardeep Rivera CO2 [Moles/Vol] 29.3 mmol/L Normal 21.0-32.0 [facility] Comment on above: Performed By: #### H STROPN, CMP, TSH ####[facility] [address] [place] [address]Dr. Hardeep Rivera Creatinine [Mass/Vol] 1.16 mg/dL Critically high 0.55-1.02 [facility] Comment on above: Performed By: #### H STROPN, CMP, TSH ####[facility] [address] [place], [place] [address]Dr. Hardeep Rivera EGFR-AF [place]I 55 mL/min/1.73m2 Critically low >=60 [facility] Comment on above: Performed By: #### H STROPN, CMP, TSH ####[facility] [address] [place] [address]Dr. Hardeep Rivera EGFR-NON AF [place] 45 mL/min/1.73m2 Critically low >=60 [facility] Comment on above: Performed By: #### H STROPN, CMP, TSH ####[facility] [address] [place], [place] [address]Dr. Hardeep Rivera Globulin (S) [Mass/Vol] 2.9 g/dL Normal [facility] Comment on above: Performed By: #### H STROPN, CMP, TSH ####[facility] [address] [place] [address]Dr. Hardeep Rivera Glucose [Mass/Vol] 105 mg/dL Normal 74-106 [facility] Comment on above: Performed By: #### H STROPN, CMP, TSH ####[facility] [address] [place] [address]Dr. Hardeep Rivera Potassium [Moles/Vol] 4.6 mmol/L Normal 3.5-5.1 [facility] Comment on above: Performed By: #### H STROPN, CMP, TSH ####[facility] [address] [place] [address]Dr. Hardeep Rivera Protein [Mass/Vol] 6.4 g/dL Normal 6.4-8.2 [facility] Comment on above: Performed By: #### H GLADIS SCOTT, TSH ####[facility] [address] [place] [address]Dr. Hardeep Rivera Sodium [Moles/Vol] 130 mmol/L Critically low 136-145 [facility] Comment on above: Performed By: #### H GLADIS SCOTT, TSH ####[facility] [address] [place] [address]Dr. Hardeep Rivera Urea nitrogen [Mass/Vol] 27.0 mg/dL Critically high 7.0-18.0 [facility] Comment on above: Performed By: #### H GLADIS SCOTT, TSH ####[facility] [address] [place], [place] [address]Dr. Hardeep Rivera Urea nitrogen/Creatinine [Mass ratio] 23.3 mg/mg Normal [facility] Comment on above: Performed By: #### H GLADIS SCOTT, TSH ####[facility] [address] [place] [address]Dr. Hardeep Rivera PROTIMEon 02-14-2023 INR Coag (PPP) [Relative time] 1.07 {INR} Normal [facility] Comment on above: Performed By: #### P T, PTT ####[facility] [address] [place], [place] [address]Dr. Hardeep Rivera INR GUIDELINES SEE BELOW Normal [facility] Comment on above: Result Comment: EDMUND RED INR: 2.0 - 3.0 CONDITIONS NOT LISTED BELOW 2.5 - 3.5 FOR PROSTHETIC HEART VALVE REPLACEMENT 2.5 - 3.5 RECURRENT THROMBOSIS Performed By: #### P T, PTT ####[facility] [address] [place], [place] [address]Dr. Hardeep Rivera PT Coag (PPP) [Time] 11.3 s Normal 9.0-11.6 [facility] Comment on above: Performed By: #### P T, PTT ####[facility] [address] [place] [address]Dr. Hardeep Rivera PTTon 02-14-2023 aPTT Coag (Bld) [Time] 29.1 s Normal 22.3-36.2 [facility] Comment on above: Performed By: #### P T, PTT ####[facility] [address] [place] [address]Dr. Hardeep Rivera TROPONIN, HIGH SENSITIVITYon 02-14-2023 HSTROP 10.4 pg/mL Normal 4.0-51.3 [facility] Comment on above: Result Comment: CUT- OFF POINTS HAVE BEEN ESTABLISHED BASED ON THE FOURTH UNIVERSAL DEFINITIONS OF MYOCARDIAL INFARCTION. THE UPPER REFERENCE LIMIT (URL) OF TROPONIN, DEFINED THE 99TH PERCENTILE OF cTnI DISTRIBUTION IN A REFERENCE POPULATION, HAS BEEN CONFIRMED THE DECISION THRESHOLD FOR [place] DIAGNOSIS. Performed By: #### H TYLER CMP, TSH ####[facility] [address] [address]Dr. Hardeep Rivera TSHon 02-14-2023 TSH 1.237 uIU/mL Normal 0.358-3.740 [facility] Comment on above: Performed By: #### H TYLER CMP, TSH ####[facility] [address] [address]Dr. Hardeep Rivera URINE MICROSCOPIC ONLYon BACTERIA NONE SEEN Normal NONE SEEN [facility] Comment on above: Performed By: #### Deedee PINON UMICRO #### [facility] [address] [place] [address] Dr. Hardeep Rivera Bacteria identified Cx Nom (U) NOT INDICATED Normal [facility] Comment on above: Performed By: #### E RUR UMICRO #### [facility] [address] [place] [address] Dr. Hardeep Rivera CAST NONE SEEN Normal NONE SEEN [facility] Comment on above: Performed By: #### E RUR UMICRO #### [facility] [address] [place] [address] Dr. Hardeep Rivera Crystals LM Nom (Urine sed) NONE SEEN Normal NONE SEEN [facility] Comment on above: Performed By: #### E RUR, UMICRO #### [facility] [address] [address] [address] Hardeep Rivera Epithelial cells LM Ql (Urine sed) NONE SEEN Normal NONE SEEN /RARE [facility] Comment on above: Performed By: #### E RUR, UMICRO #### [facility] [address] [address] [address] Hardeep Rivera MUCOUS NONE SEEN Normal NONE SEEN [facility] Comment on above: Performed By: #### E RUR, UMICRO #### [facility] [address] [place] [address] Dr. Hardeep Rivera RBC 0-2 Normal 0-2 [facility] Comment on above: Performed By: #### E RUR, UMICRO #### [facility] [address] [place] [address] Dr. Hardeep Rivera WBC NONE SEEN Normal NONE SEEN [facility] Comment on above: Performed By: #### E RUR, UMICRO #### [facility] [address] [place] [address] Dr. Hardeep Rivera XR CHEST 1 Von [...] JAZLYN DUBOSE Date: 2023-02-14 15:50 Normal [facility] FK506 (TACROLIMUS) WHOLE BLO ODon 02-13-2023 Tacrolimus (FK506), Blood 1.4 ng/mL Critically low 2.0-20.0 [facility] Comment on above: Result Comment: Trou gh (immediately following transplant) 15.0 . Trough (steady state, 2 weeks or more after transplant): 3.0 - 8.0 . Performed by LC-MS/MS technology. Performed By: #### E RUR #### [facility] [address] [place] [address] Dr. Hardeep Rivera PROF 14(COMP METB)on 023 Albumin [Mass/Vol] 3.5 g/dL Normal 3.4-5.0 [facility] Comment on above: Performed By: #### C MP ####[facility] [address] [place], [place] [address]Dr. Hardeep Rivera Albumin/Globulin [Mass ratio] 1.2 {ratio} Normal [facility] Comment on above: Performed By: #### C MP ####[facility] [address] [place], [place] [address]Dr. Hardeep Rivera ALP [Catalytic activity/Vol] 149 U/L Critically high 46-116 [facility] Comment on above: Performed By: #### C MP ####[facility] [address] [place], [place] [address]Dr. Hardeep Rivera ALT [Catalytic activity/Vol] 19 U/L Normal 14-59 [facility] Comment on above: Performed By: #### C MP ####[facility] [address] [place], [place] [address]Dr. Hardeep Rivera Anion gap [Moles/Vol] 11.7 mmol/L Normal [facility] Comment on above: Performed By: #### C MP ####[facility] [address] [place], [place] [address]Dr. Hardeep Rivera AST [Catalytic activity/Vol] 27 U/L Normal 15-37 [facility] Comment on above: Performed By: #### C MP ####[facility] [address] [place], [place] [address]Dr. Hardeep Rivera Bilirubin [Mass/Vol] 0.6 mg/dL Normal 0.2-1.0 [facility] Comment on above: Performed By: #### C MP ####[facility] [address] [place], [place] [address]Dr. Hardeep Rivera Calcium [Mass/Vol] 8.5 mg/dL Normal 8.5-10.1 [facility] Comment on above: Performed By: #### C MP ####[facility] [address] [place], [place] [address]Dr. Hardeep Rivera Chloride [Moles/Vol] 96 mmol/L Critically low 98-107 [facility] Comment on above: Performed By: #### C MP ####[facility] [address] [address]Dr. Preethiarabella Miguel CO2 [Moles/Vol] 28.1 mmol/L Normal 21.0-32.0 [facility] Comment on above: Performed By: #### C MP ####[facility] [address] [place], [place] [address]Dr. Hardeep Rivera Creatinine [Mass/Vol] 1.24 mg/dL Critically high 0.55-1.02 [facility] Comment on above: Performed By: #### C MP ####[facility] [address] [place], [place] [address]Dr. Hardeep Rivera EGFR-AF KUWAITI 51 mL/min/1.73m2 Critically low >=60 [facility] Comment on above: Performed By: #### C MP ####[facility] [address] [place], [place] [address]Dr. Hardeep Rivera EGFR-NON AF KU[place]I 42 mL/min/1.73m2 Critically low >=60 [facility] Comment on above: Performed By: #### C MP ####[facility] [address] [place], [place] [address]Dr. Hardeep Rivera Globulin (S) [Mass/Vol] 3.0 g/dL Normal [facility] Comment on above: Performed By: #### C MP ####[facility] [address] [place], [place] [address]DrLaura Rivera Glucose [Mass/Vol] 141 mg/dL Critically high 74-106 [facility] Comment on above: Performed By: #### C MP ####[facility] [address] [place], [place] [address]Dr. Hardeep Rivera Potassium [Moles/Vol] 4.8 mmol/L Normal 3.5-5.1 [facility] Comment on above: Performed By: #### C MP ####[facility] [address] [place], [place] [address]Dr. Hardeep Rivera Protein [Mass/Vol] 6.5 g/dL Normal 6.4-8.2 [facility] Comment on above: Performed By: #### C MP ####[facility] [address] [address]Dr. Hardeep Rivera Sodium [Moles/Vol] 131 mmol/L Critically low 136-145 [facility] Comment on above: Performed By: #### C MP ####[facility] [address] [address]Dr. Hardeep Rivera Urea nitrogen [Mass/Vol] 29.0 mg/dL Critically high 7.0-18.0 [facility] Comment on above: Performed By: #### C MP ####[facility] [address] [place], [place] [address]Dr. Hardeep Rivera Urea nitrogen/Creatinine [Mass ratio] 23.4 mg/mg Normal [facility] Comment on above: Performed By: #### C MP ####[facility] [address] [place], [place] [address]Dr. Hardeep Rivera BNPon 01-09-2023 Natriuretic peptide B (Bld) [Mass/Vol] 336.0 pg/mL Normal <=1,800.0 [facility] Comment on above: Performed By: #### C MP, TSH, BNP, T7 ####[facility] [address] [place], [place] [address]Dr. Hardeep Rivera CBC AUTO DIFFon 01-09-2023 BASO # 0.0 103/ul Normal 0.0-0.1 [facility] Comment on above: Performed By: #### C BC #### [facility] [address] [place] [address] Dr. Hardeep Rivera Basophils/100 WBC (Bld) 0.4 % Normal 0.2-2.0 [facility] Comment on above: Performed By: #### C BC #### [facility] [address] [place] [address] Dr. Hardeep Rivera EO # 0.3 103/ul Normal 0.0-0.7 [facility] Comment on above: Performed By: #### C BC #### [facility] [address] [place] [address] Dr. Hardeep Rivera Eosinophils/100 WBC (Bld) 4.4 % Normal 0.9-7.0 [facility] Comment on above: Performed By: #### C BC #### [facility] [address] [place] [address] Dr. Hardeep Rivera Erythrocyte distribution width (RBC) [Ratio] 12.3 % Normal 11.0-15.0 [facility] Comment on above: Performed By: #### C BC #### [facility] [address] [place] [address] Dr. Hardeep Rivera Hematocrit (Bld) [Volume fraction] 43.3 % Normal 36.0-48.0 [facility] Comment on above: Performed By: #### C BC #### [facility] [address] [place] [address] Dr. Hardeep Rivera Hemoglobin (Bld) [Mass/Vol] 13.5 g/dL Normal 12.0-16.0 [facility] Comment on above: Performed By: #### C BC #### [facility] [address] [place] [address] Dr. Hardeep Rivera IG # 0.02 10e3/ul Normal 0.00-0.03 [facility] Comment on above: Performed By: #### C BC #### [facility] [address] [place] [address] Dr. Hardeep Rivera IG % 0.3 % Normal 0.0-0.5 [facility] Comment on above: Performed By: #### C BC #### [facility] [address] [place] [address] Dr. Hardeep Rivera LYMPH # 1.1 103/ul Critically low 1.2-3.8 [facility] Comment on above: Performed By: #### C BC #### [facility] [address] [place] [address] Dr. Hardeep Rivera Lymphocytes/100 WBC (Bld) 16.0 % Critically low 20.5-60.0 [facility] Comment on above: Performed By: #### C BC #### [facility] [address] [place] [address] Dr. Hardeep Rivera MANUAL DIFF REQ NO Normal [facility] Comment on above: Performed By: #### C BC #### [facility] [address] [place] [address] Dr. Hardeep Rivera MCH (RBC) [Entitic mass] 28.4 pg Normal 26.7-34.0 [facility] Comment on above: Performed By: #### C BC #### [facility] [address] [place] [address] Dr. Hardeep Rivera MCHC (RBC) [Mass/Vol] 31.2 g/dL Normal 29.9-35.2 [facility] Comment on above: Performed By: #### C BC #### [facility] [address] [place] [address] Dr. Hardeep Rivera MCV (RBC) [Entitic vol] 91.0 fL Normal 81.0-99.0 [facility] Comment on above: Performed By: #### C BC #### [facility] [address] [place] [address] Dr. Hardeep Rivera MONO # 1.0 103/ul Critically high 0.3-0.8 [facility] Comment on above: Performed By: #### C BC #### [facility] [address] [place] [address] Dr. Hardeep Rivera Monocytes/100 WBC (Bld) 14.7 % Critically high 1.7-12.0 [facility] Comment on above: Performed By: #### C BC #### [facility] [address] [place] [address] Dr. Hardeep Rivera NEUT # 4.4 103/ul Normal 1.4-6.5 [facility] Comment on above: Performed By: #### C BC #### [facility] [address] [place] [address] Dr. Hardeep Rivera Neutrophils/100 WBC (Bld) 64.2 % Normal 43.0-75.0 [facility] Comment on above: Performed By: #### C BC #### [facility] [address] [address] [address] Hardeep Rivera Platelet mean volume (Bld) [Entitic vol] 9.5 fL Normal 9.5-13.5 [facility] Comment on above: Performed By: #### C BC #### [facility] [address] [address] [address] Hardeep Rivera PLT 238 103/ul Normal 150-450 [facility] Comment on above: Performed By: #### C BC #### [facility] [address] [address] [address] Hardeep Rivera RBC 4.76 106/ul Normal 4.20-5.40 [facility] Comment on above: Performed By: #### C BC #### [facility] [address] [address] [address] Hardeep Rivera WBC 6.8 103/ul Normal 4.0-11.0 [facility] Comment on above: Performed By: #### C BC #### [facility] [address] [address] [address] Hardeep Rivera FREE THYROXINE INDEX T7on FTI 3.96 Normal 1.30-4.50 [facility] Comment on above: Performed By: #### C MP, TSH, BNP, T7 ####[facility] [address] [place], [place] [address]HuDr. Hardeep Rivera T3U 35.0 % Normal 30.0-39.0 [facility] Comment on above: Performed By: #### C MP, TSH, BNP, T7 ####[facility] [address] [place], [place] [address]UoDr. Hardeep Rivera T4 [Mass/Vol] 11.30 ug/dL Normal 4.80-13.90 [facility] Comment on above: Performed By: #### C MP, TSH, BNP, T7 ####[facility] [address] [place], [place] [address]ZaDr. Hardeep Rivera PROF 14(COMP METB)on 023 Albumin [Mass/Vol] 3.9 g/dL Normal 3.4-5.0 [facility] Comment on above: Performed By: #### C MP, TSH, BNP, T7 ####[facility] [address] [address]Dr. Hardeep Rivera Albumin/Globulin [Mass ratio] 1.2 {ratio} Normal [facility] Comment on above: Performed By: #### C MP, TSH, BNP, T7 ####[facility] [address] [address]Dr. Hardeep Rivera ALP [Catalytic activity/Vol] 151 U/L Critically high 46-116 [facility] Comment on above: Performed By: #### C MP, TSH, BNP, T7 ####[facility] [address] [place], [place] [address]Dr. Hardeep Rivera ALT [Catalytic activity/Vol] 30 U/L Normal 14-59 [facility] Comment on above: Performed By: #### C MP, TSH, BNP, T7 ####[facility] [address] [place], [place] [address]Dr. Hardeep Rivera Anion gap [Moles/Vol] 15.6 mmol/L Normal [facility] Comment on above: Performed By: #### C MP, TSH, BNP, T7 ####[facility] [address] [place], [place] [address]Dr. Hardeep Rivera AST [Catalytic activity/Vol] 23 U/L Normal 15-37 [facility] Comment on above: Performed By: #### C MP, TSH, BNP, T7 ####[facility] [address] [place], [place] [address]Dr. Hardeep Rivera Bilirubin [Mass/Vol] 0.7 mg/dL Normal 0.2-1.0 [facility] Comment on above: Performed By: #### C MP, TSH, BNP, T7 ####[facility] [address] [place], [place] [address]Dr. Hardeep Rivera Calcium [Mass/Vol] 9.0 mg/dL Normal 8.5-10.1 [facility] Comment on above: Performed By: #### C MP, TSH, BNP, T7 ####[facility] [address] [address]Dr. Hardeep Rivera Chloride [Moles/Vol] 97 mmol/L Critically low 98-107 [facility] Comment on above: Performed By: #### C MP, TSH, BNP, T7 ####[facility] [address] [address]Dr. Hardeep Rivera CO2 [Moles/Vol] 26.1 mmol/L Normal 21.0-32.0 [facility] Comment on above: Performed By: #### C MP, TSH, BNP, T7 ####[facility] [address] [address]Dr. Hardeep Rivera Creatinine [Mass/Vol] 1.78 mg/dL Critically high 0.55-1.02 [facility] Comment on above: Performed By: #### C MP, TSH, BNP, T7 ####[facility] [address] [place], [place] [address]Dr. Hardeep Miguel EGFR-AF K[place]I 33 mL/min/1.73m2 Critically low >=60 [facility] Comment on above: Performed By: #### C MP, TSH, BNP, T7 ####[facility] [address] [place], [place] [address]Dr. Hardeep Miguel EGFR-NON AF [place]I 28 mL/min/1.73m2 Critically low >=60 [facility] Comment on above: Performed By: #### C MP, TSH, BNP, T7 ####[facility] [address] [place], [place] [address]Dr. Preethiarabella Rivera Globulin (S) [Mass/Vol] 3.3 g/dL Normal [facility] Comment on above: Performed By: #### C MP, TSH, BNP, T7 ####[facility] [address] [place], [place] [address]Dr. Preethiarabella Miguel Glucose [Mass/Vol] 127 mg/dL Critically high 74-106 [facility] Comment on above: Performed By: #### C MP, TSH, BNP, T7 ####[facility] [address] [place], [place] [address]Dr. Hardeep Rivera Potassium [Moles/Vol] 3.7 mmol/L Normal 3.5-5.1 [facility] Comment on above: Performed By: #### C MP, TSH, BNP, T7 ####[facility] [address] [address]Dr. Hardeep Rivera Protein [Mass/Vol] 7.2 g/dL Normal 6.4-8.2 [facility] Comment on above: Performed By: #### C MP, TSH, BNP, T7 ####[facility] [address] [address]Dr. Hardeep Rivera Sodium [Moles/Vol] 135 mmol/L Critically low 136-145 [facility] Comment on above: Performed By: #### C MP, TSH, BNP, T7 ####[facility] [address] [address]Dr. Hardeep Rivera Urea nitrogen [Mass/Vol] 54.0 mg/dL Critically high 7.0-18.0 [facility] Comment on above: Performed By: #### C MP, TSH, BNP, T7 ####[facility] [address] [address]Dr. aHrdeep Rivera Urea nitrogen/Creatinine [Mass ratio] 30.3 mg/mg Normal [facility] Comment on above: Performed By: #### C MP, TSH, BNP, T7 ####[facility] [address] [address]Dr. Hardeep Rivera TSHon 01-09-2023 TSH 1.097 uIU/mL Normal 0.358-3.740 [facility] Comment on above: Performed By: #### C MP, TSH, BNP, T7 ####[facility] [address] [address]Dr. Hardeep Rivera ECHOCARDIO M/2D COMPLETEon 0 12-13-2022 ECHOCARDIO M/2D COMPLETE Patient: SYLVIA HERRERA Exam Date: 12/13/2022 : 1945 Gender:F Ordering : [facility] Admission #: [id number] Family : Order #: [id number] CLICK HERE TO VIEW EXAM ECHOCARDIOGRAM REPORT [...] Area (VTI): 2.23 cm2, 2.23 cm2 Deceleration Cooper: 1.44 m/s2 Pressure Half-Time: 850.98 ms Peak [...] Nolan M.D. on 12/14/2022 at 13:49 Normal [facility] US ALAN DOP LEG BILon 023 US ALAN DOP LEG TIRSHA EXAMINATION: US ALAN DOP LEG TRISHA HISTORY: [...] HAI FOSTER Date: 2022-12-13 10:51 Normal [facility] BNPon 12-11-2022 Natriuretic peptide B (Bld) [Mass/Vol] 457.0 pg/mL Normal <=1,800.0 [facility] Comment on above: Performed By: #### RANDALL OLSON #### [facility] [address] [place] [address] Dr. Hardeep Rivera CBC AUTO DIFFon 12-11-2022 BASO # 0.0 103/ul Normal 0.0-0.1 [facility] Comment on above: Performed By: #### RANDALL OLSON #### [facility] [address] [place] [address] Dr. Hardeep Rivera Basophils/100 WBC (Bld) 0.4 % Normal 0.2-2.0 [facility] Comment on above: Performed By: #### RANDALL OLSON #### [facility] [address] [place] [address] Dr. Hardeep Rivera EO # 0.2 103/ul Normal 0.0-0.7 [facility] Comment on above: Performed By: #### RANDALL OLSON #### [facility] [address] [place] [address] Dr. Hardeep Rivera Eosinophils/100 WBC (Bld) 2.7 % Normal 0.9-7.0 [facility] Comment on above: Performed By: #### HARI OLSONRO #### [facility] [address] [place] [address] Dr. Hardeep Rivera Erythrocyte distribution width (RBC) [Ratio] 11.9 % Normal 11.0-15.0 [facility] Comment on above: Performed By: #### HARI OLSONRO #### [facility] [address] [place] [address] Dr. Hardeep Rivera Hematocrit (Bld) [Volume fraction] 40.2 % Normal 36.0-48.0 [facility] Comment on above: Performed By: #### Deedee PINON UMICRO #### [facility] [address] [place] [address] Dr. Hardeep Rivera Hemoglobin (Bld) [Mass/Vol] 13.5 g/dL Normal 12.0-16.0 [facility] Comment on above: Performed By: #### Deedee PINON UMICRO #### [facility] [address] [place] [address] Dr. Hardeep Rivera IG # 0.03 10e3/ul Normal 0.00-0.03 [facility] Comment on above: Performed By: #### Deedee PINON UMICRO #### [facility] [address] [place] [address] Dr. Hardeep Rivera IG % 0.4 % Normal 0.0-0.5 [facility] Comment on above: Performed By: #### Deedee PINON UMICRO #### [facility] [address] [place] [address] Dr. Hardeep Rivera LYMPH # 0.9 103/ul Critically low 1.2-3.8 [facility] Comment on above: Performed By: #### Deedee PINON UMICRO #### [facility] [address] [place] [address] Dr. Hardeep Rivera Lymphocytes/100 WBC (Bld) 11.3 % Critically low 20.5-60.0 [facility] Comment on above: Performed By: #### Deedee PINON UMICRO #### [facility] [address] [place] [address] Dr. Hardeep Rivera MANUAL DIFF REQ NO Normal [facility] Comment on above: Performed By: #### Deedee PINON UMICRO #### [facility] [address] [place] [address] Dr. Hardeep Rivera MCH (RBC) [Entitic mass] 28.4 pg Normal 26.7-34.0 [facility] Comment on above: Performed By: #### Deedee PINON UMICRO #### [facility] [address] [place] [address] Dr. Hardeep Rivera MCHC (RBC) [Mass/Vol] 33.6 g/dL Normal 29.9-35.2 [facility] Comment on above: Performed By: #### HARI OLSONRO #### [facility] [address] [place] [address] Dr. Hardeep Rivera MCV (RBC) [Entitic vol] 84.5 fL Normal 81.0-99.0 [facility] Comment on above: Performed By: #### Deedee PINON UMICRO #### [facility] [address] [place] [address] Dr. Hardeep Rivera MONO # 1.0 103/ul Critically high 0.3-0.8 [facility] Comment on above: Performed By: #### Deedee PINON UMICRO #### [facility] [address] [place] [address] Dr. Hardeep Rivera Monocytes/100 WBC (Bld) 12.5 % Critically high 1.7-12.0 [facility] Comment on above: Performed By: #### Deedee PINON UMICRO #### [facility] [address] [place] [address] Dr. Hardeep Rivera NEUT # 5.9 103/ul Normal 1.4-6.5 [facility] Comment on above: Performed By: #### Deedee PINON UMICRO #### [facility] [address] [place] [address] Dr. Hardeep Rivera Neutrophils/100 WBC (Bld) 72.7 % Normal 43.0-75.0 [facility] Comment on above: Performed By: #### Deedee PINON UMICRO #### [facility] [address] [place] [address] Dr. Hardeep Rivera Platelet mean volume (Bld) [Entitic vol] 8.6 fL Critically low 9.5-13.5 [facility] Comment on above: Performed By: #### Deedee PINON UMICRO #### [facility] [address] [place] [address] Dr. Hardeep Rivera PLT 226 103/ul Normal 150-450 [facility] Comment on above: Performed By: #### HARI OLSONRO #### [facility] [address] [place] [address] Dr. Hardeep Rivera RBC 4.76 106/ul Normal 4.20-5.40 [facility] Comment on above: Performed By: #### HARI OLSONRO #### [facility] [address] [place] [address] Dr. Hardeep Rivera WBC 8.2 103/ul Normal 4.0-11.0 [facility] Comment on above: Performed By: #### Deedee PINON UMICRO #### [facility] [address] [place] [address] Dr. Hardeep Rivera FREE THYROXINE INDEX T7on FTI 3.40 Normal 1.30-4.50 [facility] Comment on above: Performed By: #### HARI OLSONRO #### [facility] [address] [place] [address] Dr. Hardeep Rivera T3U 34.0 % Normal 30.0-39.0 [facility] Comment on above: Performed By: #### HARI OLSONRO #### [facility] [address] [place] [address] Dr. Hardeep Rivera T4 [Mass/Vol] 10.00 ug/dL Normal 4.80-13.90 [facility] Comment on above: Performed By: #### HARI OLSONRO #### [facility] [address] [place] [address] Dr. Hardeep Rivera PROF 14(COMP METB)on 023 Albumin [Mass/Vol] 3.8 g/dL Normal 3.4-5.0 [facility] Comment on above: Performed By: #### HARI OLSONRO #### [facility] [address] [place] [address] Dr. Hardeep Rivera Albumin/Globulin [Mass ratio] 1.1 {ratio} Normal [facility] Comment on above: Performed By: #### HARI OLSONRO #### [facility] [facility] [address] [place] [address] Dr. Hardeep Rivera ALP [Catalytic activity/Vol] 192 U/L Critically high 46-116 [facility] Comment on above: Performed By: #### RANDALL OLSON #### [facility] [address] [place] [address] Dr. Hardeep Rivera ALT [Catalytic activity/Vol] 22 U/L Normal 14-59 [facility] Comment on above: Performed By: #### RANDALL OLSON #### [facility] [address] [place] [address] Dr. Hardeep Rivera Anion gap [Moles/Vol] 11.4 mmol/L Normal [facility] Comment on above: Performed By: #### RANDALL OLSON #### [facility] [address] [place] [address] Dr. Hardeep Rivera AST [Catalytic activity/Vol] 22 U/L Normal 15-37 [facility] Comment on above: Performed By: #### RANDALL OLSON #### [facility] [address] [place] [address] Dr. Hardeep Rivera Bilirubin [Mass/Vol] 0.5 mg/dL Normal 0.2-1.0 [facility] Comment on above: Performed By: #### RANDALL OLSON #### [facility] [address] [place] [address] Dr. Hardeep Rivera Calcium [Mass/Vol] 9.1 mg/dL Normal 8.5-10.1 [facility] Comment on above: Performed By: #### HARI OLSONRO #### [facility] [address] [place] [address] Dr. Hardeep Rivera Chloride [Moles/Vol] 93 mmol/L Critically low 98-107 [facility] Comment on above: Performed By: #### RANDALL OLSON #### [facility] [address] [place] [address] Dr. Hardeep Rivera CO2 [Moles/Vol] 30.8 mmol/L Normal 21.0-32.0 [facility] Comment on above: Performed By: #### HARI OLSONRO #### [facility] [address] [place] [address] Dr. Hardeep Rivera Creatinine [Mass/Vol] 1.49 mg/dL Critically high 0.55-1.02 [facility] Comment on above: Performed By: #### E RUR, UMICRO #### [facility] [address] [place] [address] Dr. Hardeep Rivera EGFR-AF [place] 41 mL/min/1.73m2 Critically low >=60 [facility] Comment on above: Performed By: #### E RUR, UMICRO #### [facility] [address] [place] [address] Dr. Hardeep Rivera EGFR-NON AF [place] 34 mL/min/1.73m2 Critically low >=60 [facility] Comment on above: Performed By: #### E RUR, UMICRO #### [facility] [address] [place] [address] Dr. Hardeep Rivera Globulin (S) [Mass/Vol] 3.4 g/dL Normal [facility] Comment on above: Performed By: #### E RUR, UMICRO #### [facility] [address] [place] [address] Dr. Hardeep Rivera Glucose [Mass/Vol] 116 mg/dL Critically high 74-106 [facility] Comment on above: Performed By: #### E RUR, UMICRO #### [facility] [address] [place] [address] Dr. Hardeep Rivera Potassium [Moles/Vol] 4.2 mmol/L Normal 3.5-5.1 [facility] Comment on above: Performed By: #### E RUR, UMICRO #### [facility] [address] [place] [address] Dr. Hardeep Rivera Protein [Mass/Vol] 7.2 g/dL Normal 6.4-8.2 [facility] Comment on above: Performed By: #### E RUR, UMICRO #### [facility] [address] [place] [address] Dr. Hardeep Rivera Sodium [Moles/Vol] 131 mmol/L Critically low 136-145 [facility] Comment on above: Performed By: #### RANDALL OLSON #### [facility] [address] [place] [address] Dr. Hardeep Rivera Urea nitrogen [Mass/Vol] 38.0 mg/dL Critically high 7.0-18.0 [facility] Comment on above: Performed By: #### HARI OLSONRO #### [facility] [address] [address] [address] Hardeep Rivera Urea nitrogen/Creatinine [Mass ratio] 25.5 mg/mg Normal [facility] Comment on above: Performed By: #### RANDALL OLSON #### [facility] [address] [place] [address] Dr. aHrdeep Rivera TSHon 12-11-2022 TSH 6.407 uIU/mL Critically high 0.358-3.740 [facility] Comment on above: Performed By: #### RANDALL OLSON #### [facility] [address] [place] [address] Dr. Hardeep Rivera [facility]01 SARS-CoV-2 (COVID-19) RNA ULICES+probe Ql (Unsp spec) Not detected Normal NOT DETECTED [facility] Comment on above: Result Comment: This test is not yet approved or cleared by the [place] FDA. When there are no FDA-approved or cleared tests available, and other criteria are met, FDA can make tests available under an emergency access mechanism called an Emergency Use Authorization (EUA). The EUA for this test is supported by the Gis Engineer of Health and Human Service's (HHS's) declaration [...] consistent with SARS-CoV-2. Performed By: #### C [facility] #### [facility] [address] [place] [address] Dr. Hardeep Rivera INFLUENZA A AND B AGon 11-14 [facility] SEE BELOW Normal [facility] Comment on above: Result Comment: Nega tive for Flu A protein angiten. Infection due to Flu A cannot be ruled out. Flu A angiten in the sample may be below the detection limit of the test. Performed By: #### Deedee PINON UMICRO #### [facility] [address] [place] [address] Dr. Hardeep Rivera [facility] SEE BELOW Normal [facility] Comment on above: Result Comment: Nega tive for Flu B protein antigen. Infection due to Flu B cannot be ruled out. Flu B antigen in the sample may be below the detection limit of the test. Performed By: #### Deedee PINON UMICRO #### [facility] [address] [place] [address] Dr. Hardeep Rivera INFLUENZA A AG Negative Normal NEGATIVE SEE COMMENT [facility] Comment on above: Performed By: #### Deedee PINON ICRO #### [facility] [address] [place] [address] Dr. Hardeep Rivera INFLUENZA B AG Negative Normal NEGATIVE SEE COMMENT [facility] Comment on above: Performed By: #### Deedee PINON UMICRO #### [facility] [address] [place] [address] Dr. Hardeep Rivera INTERNAL CONTROLS Within Normal Limits Normal Wi thin Normal Limits [facility] Comment on above: Performed By: #### Deedee PINON UMICRO #### [facility] [address] [place] [address] Dr. Hardeep Rivera Covid-19 PCR ([facility])on SARS-CoV-2 (COVID-19) RNA ULICES+probe Ql (Unsp spec) Not detected Normal NOT DETECTED [facility] Comment on above: Result Comment: This test is not yet approved or cleared by the [place] FDA. When there are no FDA-approved or cleared tests available, and other criteria are met, FDA can make tests available under an emergency access mechanism called an Emergency Use Authorization (EUA). The EUA for this test is supported by the [place] of Health and Human Service's (HHS's) declaration [...] consistent with SARS-CoV-2. Performed By: #### [facility] #### [facility] [address] [place] [address] Dr. Hardeep Rivera INFLUENZA A AND B [facility] 10-03 [facility] SEE BELOW Normal [facility] Comment on above: Result Comment: Nega tive for Flu A protein angiten. Infection due to Flu A cannot be ruled out. Flu A angiten in the sample may be below the detection limit of the test. Performed By: #### E AKSHAT PINONICRO #### [facility] [address] [place] [address] Dr. Hardeep [facility] Normal [facility] Comment on above: Result Comment: Nega tive for Flu B protein antigen. Infection due to Flu B cannot be ruled out. Flu B antigen in the sample may be below the detection limit of the test. Performed By: #### E KATHRIN UMICRO #### [facility] [address] [place] [address] Dr. Hardeep Rivera INFLUENZA A AG Negative Normal NEGATIVE SEE COMMENT [facility] Comment on above: Performed By: #### E KATHRIN, UMICRO #### [facility] [address] [place] [address] Dr. Hardeep Rivera INFLUENZA B AG Negative Normal NEGATIVE SEE COMMENT [facility] Comment on above: Performed By: #### E RUR, ICRO #### [facility] [address] [place], [place] [address] Dr. Hardeep Rivera INTERNAL CONTROLS Within Normal Limits Normal Wi thin Normal Limits [facility] Comment on above: Performed By: #### E COLLINSR, ICRO #### [facility] [address] [place], [place] [address] Dr. Hardeep Clark [facility] SYLVIA HERRERA ([id number]) 1945 F Date Time Provider Department 08/16/22 SOY MCCANN [facility] ISACC During your visit today, we [...] mg by mouth three times daily. 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 Hardeep Miguel CBC AUTO DIFFon 08-04-2022 BASO # 0.0 103/ul Normal 0.0-0.1 [facility] Comment on above: Performed By: #### C BC ####[facility] [address] [address]Dr. Hardeep Rivera Basophils/100 WBC (Bld) 0.3 % Normal 0.2-2.0 [facility] Comment on above: Performed By: #### C BC ####[facility] [address] [place], [place] [address]Dr. Hardeep Rivera EO # 0.1 103/ul Normal 0.0-0.7 [facility] Comment on above: Performed By: #### C BC ####[facility] [address] [address]Dr. Hardeep Rivera Eosinophils/100 WBC (Bld) 1.2 % Normal 0.9-7.0 [facility] Comment on above: Performed By: #### C BC ####[facility] [address] [place], [place] [address]Dr. Hardeep Rivera Erythrocyte distribution width (RBC) [Ratio] 12.2 % Normal 11.0-15.0 [facility] Comment on above: Performed By: #### C BC ####[facility] [address] [place], [place] [address]Dr. Hardeep Rivera Hematocrit (Bld) [Volume fraction] 38.3 % Normal 36.0-48.0 [facility] Comment on above: Performed By: #### C BC ####[facility] [address] [place], [place] [address]Dr. Hardeep Rivera Hemoglobin (Bld) [Mass/Vol] 12.9 g/dL Normal 12.0-16.0 [facility] Comment on above: Performed By: #### C BC ####[facility] [address] [address]Dr. Preethiarabella Miguel IG # 0.02 10e3/ul Normal 0.00-0.03 [facility] Comment on above: Performed By: #### C BC ####[facility] [address] [address]Dr. Hardeep Rivera IG % 0.3 % Normal 0.0-0.5 [facility] Comment on above: Performed By: #### C BC ####[facility] [address] [address]Dr. Hardeep Rivera LYMPH # 1.1 103/ul Critically low 1.2-3.8 [facility] Comment on above: Performed By: #### C BC ####[facility] [address] [address]Dr. Hardeep Rivera Lymphocytes/100 WBC (Bld) 16.6 % Critically low 20.5-60.0 [facility] Comment on above: Performed By: #### C BC ####[facility] [address] [address]Dr. Hardeep Rivera MANUAL DIFF REQ NO Normal [facility] Comment on above: Performed By: #### C BC ####[facility] [address] [address]Dr. Hardeep Rivera MCH (RBC) [Entitic mass] 29.7 pg Normal 26.7-34.0 [facility] Comment on above: Performed By: #### C BC ####[facility] [address] [place], [place] [address]Dr. Preethiarabella Rivera MCHC (RBC) [Mass/Vol] 33.7 g/dL Normal 29.9-35.2 [facility] Comment on above: Performed By: #### C BC ####[facility] [address] [address]Dr. Hardeep Rivera MCV (RBC) [Entitic vol] 88.2 fL Normal 81.0-99.0 [facility] Comment on above: Performed By: #### C BC ####[facility] [address] [address]Dr. Hardeep Rivera MONO # 0.7 103/ul Normal 0.3-0.8 [facility] Comment on above: Performed By: #### C BC ####[facility] [address] [address]Dr. Hardeep Rivera Monocytes/100 WBC (Bld) 11.1 % Normal 1.7-12.0 [facility] Comment on above: Performed By: #### C BC ####[facility] [address] [address]Dr. Hardeep Rivera NEUT # 4.6 103/ul Normal 1.4-6.5 [facility] Comment on above: Performed By: #### C BC ####[facility] [address] [address]Dr. Hardeep Rivera Neutrophils/100 WBC (Bld) 70.5 % Normal 43.0-75.0 [facility] Comment on above: Performed By: #### C BC ####[facility] [address] [address]Dr. Hardeep Rivera Platelet mean volume (Bld) [Entitic vol] 9.4 fL Critically low 9.5-13.5 [facility] Comment on above: Performed By: #### C BC ####[facility] [address] [address]Dr. Hardeep Rivera PLT 203 103/ul Normal 150-450 [facility] Comment on above: Performed By: #### C BC ####[facility] [address] [place], [place] [address]Dr. Hardeep Rivera RBC 4.34 106/ul Normal 4.20-5.40 [facility] Comment on above: Performed By: #### C BC ####[facility] [address] [address]Dr. Hardeep Rivera WBC 6.5 103/ul Normal 4.0-11.0 [facility] Comment on above: Performed By: #### C BC ####[facility] [address] [place], [place] [address]Ll. Hardeep Rivera CT ABD/PELVIS WO CONon 08-04 [...] ALEXSANDER HARDING Date: 2022-08-04 20:12 Normal [facility] Covid-19 PCR (CVDTB)on SARS-CoV-2 (COVID-19) RNA ULICES+probe Ql (Unsp spec) Not detected Normal NOT DETECTED [facility] Comment on above: Result Comment: [...] for this test is supported by the Gis Engineer of Health and Human Service's declaration that [...] be used). Performed By: #### C VDTBH ####[facility] [address] [place], [place] [address]HlDr. Hardeep Rivera ER URINE PROFILEon 2 Bilirubin Ql (U) Negative Normal NEGATIVE [facility] Comment on above: Performed By: #### E RUR #### [facility] [address] [place], [place] [address] Dr. Hardeep Rivera Clarity (U) CLEAR Normal CLEAR [facility] Comment on above: Performed By: #### E RUR #### [facility] [address] [address] [address] Hardeep Rivera Color (U) LT. YELLOW Normal YELLOW [facility] Comment on above: Performed By: #### E RUR #### [facility] [address] [place] [address] Dr. Hardeep FRANCIS A micrscopic examina tion will be performed if indicated. Normal [facility] Comment on above: Performed By: #### E RUR #### [facility] [address] [place] [address] Dr. Hardeep Rivera Glucose Ql (U) Negative Normal NEGATIVE [facility] Comment on above: Performed By: #### E RUR #### [facility] [address] [place] [address] Dr. Hardeep Rivera Hemoglobin Ql (U) Negative Normal NEGATIVE [facility] Comment on above: Performed By: #### E RUR #### [facility] [address] [place] [address] Dr. Hardeep Rivera Ketones Ql (U) Negative Normal NEGATIVE [facility] Comment on above: Performed By: #### E RUR #### [facility] [address] [place] [address] Dr. Hardeep Rivera LEUKOCYTES Negative Normal NEGATIVE [facility] Comment on above: Performed By: #### E RUR #### [facility] [address] [place] [address] Dr. Hardeep Rivera Nitrite Ql (U) Negative Normal NEGATIVE [facility] Comment on above: Performed By: #### E RUR #### [facility] [address] [place] [address] Dr. Hardeep Rivera pH (U) 7.0 [pH] Normal 5-9 [facility] Comment on above: Performed By: #### E RUR #### [facility] [address] [place] [address] Dr. Hardeep Rivera SPEC GRAVITY <=1.005 Abnormal 1.005-<=1.0 25 [facility] Comment on above: Performed By: #### E RUR #### [facility] [address] [address] [address] Hardeep Rivera UA PROTEIN Negative Normal NEGATIVE/ TRACE [facility] Comment on above: Performed By: #### E RUR #### [facility] [address] [address] [address] Hardeep Rivera UR MICRO IND NOT INDICATED Normal [facility] Comment on above: Performed By: #### E RUR #### [facility] [address] [address] [address] Hardeep Rivera Urobilinogen Qn (U) 0.2 {Kevon'U}/dL Normal 0.2 - 1. 0 [facility] Comment on above: Performed By: #### E RUR #### [facility] [address] [address] [address] Hradeep Rivera LIPASEon 08-04-2022 Lipase [Catalytic activity/Vol] 1486.0 U/L Critically high 73.0-393.0 [facility] Comment on above: Performed By: #### C MP, LIPA, BRITTNEY ####[facility] [address] [address]DrLaura Rivera PROF 14(COMP METB)on 022 Albumin [Mass/Vol] 3.6 g/dL Normal 3.4-5.0 [facility] Comment on above: Performed By: #### C MP, LIPA, BRITTNEY ####[facility] [address] [address]DrLaura Rivera Albumin/Globulin [Mass ratio] 1.3 {ratio} Normal [facility] Comment on above: Performed By: #### C MP, LIPA, BRITTNEY ####[facility] [address] [address]DrLaura Rivera ALP [Catalytic activity/Vol] 171 U/L Critically high 46-116 [facility] Comment on above: Performed By: #### C MP, LIPA, BRITTNEY ####[facility] [address] [address]DrLaura Rivera ALT [Catalytic activity/Vol] 35 U/L Normal 14-59 [facility] Comment on above: Performed By: #### C MP LIPA, BRITTNEY ####[facility] [address] [address]Dr. Hardeep Rivera Anion gap [Moles/Vol] 11.4 mmol/L Normal [facility] Comment on above: Performed By: #### C ARGENIS LIPA, BRITTNEY ####[facility] [address] [address]Dr. Hardeep Rivera AST [Catalytic activity/Vol] 28 U/L Normal 15-37 [facility] Comment on above: Performed By: #### C ARGENIS LIPA, BRITTNEY ####[facility] [address] [place], [place] [address]Dr. Hardeep Rivera Bilirubin [Mass/Vol] 0.7 mg/dL Normal 0.2-1.0 [facility] Comment on above: Performed By: #### C ARGENIS LIPA, BRITTNEY ####[facility] [address] [place], [place] [address]Dr. Hardeep Rivera Calcium [Mass/Vol] 8.4 mg/dL Critically low 8.5-10.1 [facility] Comment on above: Performed By: #### C ARGENIS LIPA, BRITTNEY ####[facility] [address] [place], [place] [address]Dr. Hardeep Rivera Chloride [Moles/Vol] 100 mmol/L Normal 98-107 [facility] Comment on above: Performed By: #### C MP LIPA, BRITTNEY ####[facility] [address] [place], [place] [address]Dr. Hardeep Rivera CO2 [Moles/Vol] 25.6 mmol/L Normal 21.0-32.0 [facility] Comment on above: Performed By: #### C ARGENIS LIPA, BRITTNEY ####[facility] [address] [place], [place] [address]Dr. Hardeep Rivera Creatinine [Mass/Vol] 1.33 mg/dL Critically high 0.55-1.02 [facility] Comment on above: Performed By: #### C MP LIPA, BRITTNEY ####[facility] [address] [address]Dr. Hardeep Rivera EGFR-AF [place] 47 mL/min/1.73m2 Critically low >=60 [facility] Comment on above: Performed By: #### C MP LIPA, BRITTNEY ####[facility] [address] [address]Dr. Hardeep Rivera EGFR-NON AF [place] 39 mL/min/1.73m2 Critically low >=60 [facility] Comment on above: Performed By: #### C MP, LIPA, BRITTNEY ####[facility] [address] [address]Dr. Hardeep Rivera Globulin (S) [Mass/Vol] 2.7 g/dL Normal [facility] Comment on above: Performed By: #### C MP, LIPA, BRITTNEY ####[facility] [address] [address]Dr. Hardeep Rivera Glucose [Mass/Vol] 108 mg/dL Critically high 74-106 T [facility] Comment on above: Performed By: #### C MP, LIPA, BRITTNEY ####[facility] [address] [address]Dr. Hardeep Rivera Potassium [Moles/Vol] 4.0 mmol/L Normal 3.5-5.1 [facility] Comment on above: Performed By: #### C MP, LIPA, BRITTNEY ####[facility] [address] [address]Dr. Hardeep Rivera Protein [Mass/Vol] 6.3 g/dL Critically low 6.4-8.2 [facility] Comment on above: Performed By: #### C MP, LIPA, BRITTNEY ####[facility] [address] [place], [place] [address]Dr. Hardeep Rivera Sodium [Moles/Vol] 133 mmol/L Critically low 136-145 [facility] Comment on above: Performed By: #### C MP, LIPA, BRITTNEY ####[facility] [address] [address]Dr. Hardeep Rivera Urea nitrogen [Mass/Vol] 23.0 mg/dL Critically high 7.0-18.0 [facility] Comment on above: Performed By: #### C ABAD MORE AMY ####[facility] [address] [address]Dr. Hardeep Rivera Urea nitrogen/Creatinine [Mass ratio] 17.3 mg/mg Normal [facility] Comment on above: Performed By: #### C ABAD MORE AMY ####[facility] [address] [address]Dr. Hardeep Rivera Pre-Certification Formon Pre-Certification Form [id number]:12 [id number] Normal [facility] BOX TEST SENT OUTon 08-02-20 22 SENT TO REF LAB 08/02/[address] [facility] Comment on above: Performed By: #### Deedee PINON #### [facility] [address] [place] [address] Dr. Hardeep Rivera CBC AUTO DIFFon 08-02-2022 BASO # 0.0 103/ul Normal 0.0-0.1 [facility] Comment on above: Performed By: #### RANDALL OLSON #### [facility] [address] [place] [address] Dr. Hardeep Rivera Basophils/100 WBC (Bld) 0.3 % Normal 0.2-2.0 [facility] Comment on above: Performed By: #### RANDALL OLSON #### [facility] [address] [place] [address] Dr. Hardeep Rivera EO # 0.1 103/ul Normal 0.0-0.7 [facility] Comment on above: Performed By: #### RANDALL OLSON #### [facility] [address] [place] [address] Dr. Hardeep Rivera Eosinophils/100 WBC (Bld) 1.4 % Normal 0.9-7.0 [facility] Comment on above: Performed By: #### RANDALL OLSON #### [facility] [address] [place] [address] Dr. Hardeep Rivera Erythrocyte distribution width (RBC) [Ratio] 12.2 % Normal 11.0-15.0 [facility] Comment on above: Performed By: #### HARI OLSONRO #### [facility] [address] [place] [address] Dr. Hardeep Rivera Hematocrit (Bld) [Volume fraction] 41.2 % Normal 36.0-48.0 [facility] Comment on above: Performed By: #### Deedee PINON UMICRO #### [facility] [address] [place] [address] Dr. Hardeep Rivera Hemoglobin (Bld) [Mass/Vol] 13.6 g/dL Normal 12.0-16.0 [facility] Comment on above: Performed By: #### Deedee PINON UMICRO #### [facility] [address] [place] [address] Dr. Hardeep Rivera IG # 0.02 10e3/ul Normal 0.00-0.03 [facility] Comment on above: Performed By: #### Deedee PINON UMICRO #### [facility] [address] [place] [address] Dr. Hardeep Rivera IG % 0.3 % Normal 0.0-0.5 [facility] Comment on above: Performed By: #### Deedee PINON UMICRO #### [facility] [address] [place] [address] Dr. Hardeep Rivera LYMPH # 0.6 103/ul Critically low 1.2-3.8 [facility] Comment on above: Performed By: #### Deedee PINON UMICRO #### [facility] [address] [place] [address] Dr. Hardeep Rivera Lymphocytes/100 WBC (Bld) 8.9 % Critically low 20.5-60.0 [facility] Comment on above: Performed By: #### Deedee PINON, UMICRO #### [facility] [address] [place] [address] Dr. Hardeep Rivera MANUAL DIFF REQ NO Normal [facility] Comment on above: Performed By: #### HARI OLSONRO #### [facility] [address] [place] [address] Dr. Hardeep Rivera MCH (RBC) [Entitic mass] 29.6 pg Normal 26.7-34.0 [facility] Comment on above: Performed By: #### HARI OLSONRO #### [facility] [address] [place] [address] Dr. Hardeep Rivera MCHC (RBC) [Mass/Vol] 33.0 g/dL Normal 29.9-35.2 [facility] Comment on above: Performed By: #### HARI OLSONRO #### [facility] [address] [place] [address] Dr. Hardeep Rivera MCV (RBC) [Entitic vol] 89.8 fL Normal 81.0-99.0 [facility] Comment on above: Performed By: #### HARI OLSONRO #### [facility] [address] [place] [address] Dr. Hardeep Rivera MONO # 0.7 103/ul Normal 0.3-0.8 [facility] Comment on above: Performed By: #### HARI OLSONRO #### [facility] [address] [place] [address] Dr. Hardeep Rivera Monocytes/100 WBC (Bld) 11.6 % Normal 1.7-12.0 [facility] Comment on above: Performed By: #### HARI OLSONRO #### [facility] [address] [place] [address] Dr. Hardeep Rivera NEUT # 5.0 103/ul Normal 1.4-6.5 [facility] Comment on above: Performed By: #### HARI OLSONRO #### [facility] [address] [place] [address] Dr. Hardeep Rivera Neutrophils/100 WBC (Bld) 77.5 % Critically high 43.0-75.0 [facility] Comment on above: Performed By: #### HARI OLSONRO #### [facility] [address] [address] [address] Hardeep Rivera Platelet mean volume (Bld) [Entitic vol] 9.4 fL Critically low 9.5-13.5 [facility] Comment on above: Performed By: #### Deedee PINON, HARIRO #### [facility] [address] [place], [place] [address] Dr. Hardeep Rivera PLT 200 103/ul Normal 150-450 [facility] Comment on above: Performed By: #### Dedeee PINON, HARIRO #### [facility] [address] [address] [address] Hardeep Rivera RBC 4.59 106/ul Normal 4.20-5.40 [facility] Comment on above: Performed By: #### Deedee PINON, HARIRO #### [facility] [address] [address] [address] Hardeep Rivera WBC 6.4 103/ul Normal 4.0-11.0 [facility] Comment on above: Performed By: #### Deedee PINON, BENNETTRO #### [facility] [address] [address] [address] Hardeep Clark 08-02-2022 CNPN Telephone (JULIAN [facility]) -- SYLVIA HERRERA ([id number]) 1945 F Date Time Provider Department 08/02/22 LOIDA MATHIAS [facility] During your visit today, we recorded the following information about you: Linden Faustina 08/02/2022 1:42 PM Signed Patient had labs drawn 08/02/22, uploaded to scanned docs. Loida Mathias APRN.VENDING MACHINE COLLECTOR 08/07/2022 10:27 AM Signed Received outside labs drawn 08/02 -- FK 4.7 Cr 1.4 BUN 21 K 3.9 FBS 119 WBC 6400 Hgb 13.6 Hct 41 Plts 200 My chart message sent to patient. Advised no changes. Asked that she keep us posted re: if she will be transferring her care. Loida Mathias APRN.VENDING MACHINE COLLECTOR August 07, 2022 10:27 AM Allergies As [...] mg by mouth three times daily. - zisxid-dvzeqkgv-rtxydxf (CREON) 24,000-76,000 -120,000 unit cpDR Take 3 [...] Status:Closed by LINDEN WEEMS on 08/02/22 Normal [facility] PROF CHEM 8 (BAS METB)on Anion gap [Moles/Vol] 12.2 mmol/L Normal [facility] Comment on above: Performed By: #### RANDALL OLSON #### [facility] [address] [address] [address] Hardeep Rivera Calcium [Mass/Vol] 8.6 mg/dL Normal 8.5-10.1 [facility] Comment on above: Performed By: #### RANDALL OLSON #### [facility] [address] [address] [address] Hardeep Rivera Chloride [Moles/Vol] 98 mmol/L Normal 98-107 [facility] Comment on above: Performed By: #### RANDALL OLSON #### [facility] [address] [address] [address] Hardeep Rivera CO2 [Moles/Vol] 27.7 mmol/L Normal 21.0-32.0 [facility] Comment on above: Performed By: #### AKSHAT OLSONICRO #### [facility] [address] [address] [address] Hardeep Rivera Creatinine [Mass/Vol] 1.42 mg/dL Critically high 0.55-1.02 [facility] Comment on above: Performed By: #### Deedee PINON, UMICRO #### [facility] [address] [address] [address] Hardeep Rivera EGFR-AF [place]I 43 mL/min/1.73m2 Critically low >=60 [facility] Comment on above: Performed By: #### Deedee PINON UMICRO #### [facility] [address] [address] [address] Hardeep Rivera EGFR-NON AF [place] 36 mL/min/1.73m2 Critically low >=60 [facility] Comment on above: Performed By: #### Deedee PINON UMICRO #### [facility] [address] [address] [address] Hardeep Rivera Glucose [Mass/Vol] 119 mg/dL Critically high 74-106 [facility] Comment on above: Performed By: #### Deedee PINON, UMICRO #### [facility] [address] [address] [address] Hardeep Rivera Potassium [Moles/Vol] 3.9 mmol/L Normal 3.5-5.1 [facility] Comment on above: Performed By: #### Deedee PINON, UMICRO #### [facility] [address] [address] [address] Hardeep Rivera Sodium [Moles/Vol] 134 mmol/L Critically low 136-145 [facility] Comment on above: Performed By: #### Deedee PINON, UMICRO #### [facility] [address] [address] [address] Hardeep Rivera Urea nitrogen [Mass/Vol] 21.0 mg/dL Critically high 7.0-18.0 [facility] Comment on above: Performed By: #### E RANDALL PINON #### [facility] [address] [place], [place] [address] Dr. Hardeep Rivera Urea nitrogen/Creatinine [Mass ratio] 14.8 mg/mg Normal [facility] Comment on above: Performed By: #### E RANDALL PINON #### [facility] [id number] Hardeep Rivera Tacrolimus Bld-ncon 2021 Tacrolimus (Bld) [Mass/Vol] 4.7 ng/mL Low 5.0-20.0 [facility] Comment on above: Order Comment: Speci [...] Test performed by chemiluminescent immunoassay using [employer]. Performed By: #### 1 1253-2 ####[facility] LABCLIA [id number] [place] [address] [place] Giardia, Direct, EIAon 07-23 G. lamblia Ag IA Ql (Stl) Negative Invalid Interpretation Code Negative [facility] Comment on above: Result Comment: Perf ormed at: [facility] [id number] [place], [place] [id number] PhD Sommer Davis Performed By: #### 4 [id number] ####[facility] [address] [place] [address] O & P EXAM, ROUTINE, REFLEXo n 07-23-2022 Ova and parasites identified Concentration Nom (Stl) Comment Invalid Interpretation Code [facility] Comment on above: Result Comment: No o va, cysts, or parasites seen. One negative specimen does not rule out the possibility of a parasitic infection. Performed at: [address] [id number] PhD Sommer Davis Performed By: #### 4 [id number], [id number] ####[facility] [address] [place] [address] O & P Exam, Routineon 2021 Ova and parasites identified LM Nom (Unsp spec) Final report Invalid Interpretation Code [facility] Comment on above: Result Comment: Thes e results were obtained using wet preparation(s) and trichrome stained smear. This test does not include testing for Cryptosporidium parvum, Cyclospora, or Microsporidia. Performed at: [address] [id number] PhD Sommer Davis Performed By: #### 4 [id number] ####[id number] [place] [address] Consent for Procedure/Surger yon 07-19-2022 Consent for Procedure/Surgery [id number]:12 [id number] Normal [facility] CMV IgMon 07-18-2022 CMV IgM IA Qn <30.0 Invalid Interpretation Code 0.0-29.9 [facility] Comment on above: Result Comment: Nega tive <30.0 Equivocal 30.0 - 34.9 Positive >34.9 A positive result is generally indicative of acute infection, reactivation or persistent IgM production. Performed at: [address] [id number] PhD Sommer Davis Performed By: #### 1 [id number] ####[facility] [address] [place] [address] Coding Summary.on 07-18-2022 Coding Summary. CD:[id number] Gh0bWw +PGhlYWQ+OW0HLUYyD31nhVPuq X6GW5aQWJ6VQUGBFZSZCH7MWU8 ycSY7KAeaP2JxwuPc WwwnwFAfOW15PXz9ZNR6cStrOW ldfY7ntQPvB8k2BnJpNV41oN12 YOzmANVqMaJ7SwQgygfhrIRw Y7vrTtDwfSBwJeu+PHRhYmxlIH ucFECbHYsdDAOqAmHqoDzzPJ3q Bd4jFHOcHXRtqSikyHGcCyIr i6mtDCSdUSlvYR6acRwbJ7MwpA P0WRIxl4k5Mz03aNU+PHRkIHN0 rRarUZczy760DpQml4xpPOV9 fEKbWGkxENM9B18vi9X1PRSkOD MlMSZ4yYI0kX7ftMinhciuG5El wKNwKgE4DQP3cHEazT9jlQpa fsbdbR1oTcn+R75YLN4RMNJJJH 2ONwd8R5FwIrtmrZL+NI83XSNp AK48cVGpuZWnc9flaTa5AgWw VEIeFKD9uXzvAXcgz3SwZMFaX6 4grIGwe8V6TGDaoNpqsVAoJcAk aFN8nP1lIMghypttw4rqybng Qjsxx6pogz15fU83O90fWIcdPE VqCLF5EUZtQXGspTgklw3vrS2q Ii8+QOixg0egn8jnrSh3EmXd QTIjkrFixOqxQDY4g0YzWs57G2 PflMjov1QzUjx2vu36fWRqq8C3 kDJ1UAnwEITfqB0zLEcsWxH0 QSPdCmVwjQ20eHHqEZssGd3gqM hskZbmXY7vTLHodgriFQNptB4l VCOazHZayZwfRO8bQHKykqgi u419YkIiRZQ7BOLfiYTeG2GzrP 8jSiYyJPSbSBJtG1UdzJJtZMom V589SNhlFnP3RHPswlTsU5Ry KQAwdHpxNkA1g4G3Si1Dg4Bygl maBWJ6GNrxMJU0GeE9HpFwLzW7 E5FbZzv3DFTniVcnRQ6aO4Zg IJJylwvxratboQA8KPDkJWCcyD 30jGBtCAxmEv6ja1Y6i732AGBl QEFliK68Oe4yjMuqUAFmmAYD sC8murjqs8niocwvJyGhPMOjTP j4OGo4AIDyjZjaHnFsPUN8FaR2 WKV3zBFihB1woKfcuswgdB9h Oyc+X25kbI4sZTJ9YMM8ymhgHX YfubCzWW69SA37A0ZbDulywKIb bGU+DZVdmtAbwUltMB4tDeHc p2uoy4IaGZrkQ8BaREOlDOqaGj i2IEBiWJE7lNJ1lS9xIRAsGDvd m6W5mBG3I4UewjDcgk3dj7kv FQMlAJmvA70woYOvw6L6ZJFpjT D2GRLpjAwtLxOdtJ30Vuo+PGNv iKhqz7LuYsuls8osx4nklHl4 FjAuLQBctlIreHsfROZ7i7QuYt 27U70nKOmqJLQeSUGgQVQsOIRs bHlera4egP2cFw0+PGNvbCB3 mIU8uM2uEWUlTmL4HLsjU567Vn BohTMrXkejj8bst8qfeQf5MgCn SGOatnOpaKzzEQZ6e9ViKc30 I82uGLypNJSyFTVsWQMnDBKdxZ elyk1dsT4eTv0+XM9xi2dhyh32 iV51cYJ+QMMbXSC4nAiyZIjc AVMeyJ1iAOefIaL2GTHvZzMufS 20rMCxCTgbLg6lrPzexKrmYQ5i EIDchehvw403OvIwb6fcWAHq lPOpSCmlWHB4F46bp9D8CKLyJG IbXNW3pEX4sM2coYozsplcvOTe kSapzqDtnFjoFYelVCcuN862 IHRvcDsnPlBhdGllbnQgTmFtZT h3Z0XoNbn2RIDncZkmCC7czIQj TWahVk5qeYghaYorKL2iJSCj lgfau077OjOxs2kjTIWuyAXvSP ejENL6Q26xk3Q7NEQcNJBbQBK4 mUT1sE5zaFavjmbheUMcsEwm zoYapBybWZxoVXshW170YTLjpA ezDcUmkwFsVEXunJE4MS70IN78 hPNfm2R3rWX2Q9GqQQFjgyul lpiakEE7OEPjUPIjjS14Vm1ycC ddGd8kRFAwIKJ7JBRigQXeD8Za dX8oHfRgMDUqLOCiM3EjaEZu XHcdQ615KFziIbL0TUXjspQyQ5 KqZZXzqZusVqM2e2Q2Al4GC8T1 JY87UW54oSVen3T8uOB9M3Tv DCJqhhaynipnuFM3OCMmICWmtF 40Ub8tfCssOo7qUNGoFBW6QDSc bVLaP7NbpK6fLcAaHNJpEQFp P7HdxFUnFDyaW684ASxmAaC4RX OrjbVtL1NrNTMgnPydZsE3d3N9 Lv3UBNi8QD61UI55xXFwr1B4 ePO9N8RlVTXsjljufnqpyNE2YA EwBUSkbY56Pz6adHtuJc1kLZTh BEM5CULcwEIgF8AyrP1jUsPg HKLpOYKsX4NplTCcSQoyR628DT esXhB8WKFrvtVyT0OhATCbwTqg CfW6b1H8Di5YJBAvRX05NJX4 zOB3BV68CQ70X0QlTsyamQFsjH U+PHRhYmxlIHdpZHRoPScxMDAl PfBvfDyxMO7eRx3xPUJgLHYq sXvcwJCfPtCtc4opLPFsDWugKV 2dzXruX4SnrCS7QVMrq9c4Ty98 S48kT9SyjPS+QUMpgCO9kIF3 wN9qCaKpNyV7GCzoH312KlUofV FvHtmuh8abx4uomXb8MwH9SPEf oaVqnWynUDW5l4VjMu31K92h IHdpZHRoPSIxNSUiIHZhbGlnbj 8dhS6zDz4+VZOfcAJ4nRA1uI1i VoMuJfO7JKusE590VbQftTBw Wzwmo3jej9gbmAy5RbRiAFBkkg EbqAqpOEX5b1XhDx80T9SjrUqt y2YlTym2xn86sFZtg1A4oOO8 J7VyZDZryveeyRYzzLumJK1aKW MoscnaEUGimE5wRFRhO9i5QpNs HdY3ASzgK4NneeP0BWZzbWBh LPduXZI0U29gt0I7MJDfGKTsZT H4zPR7aL4zzQmkhoredZHavWxs tzBysJbsGMnyXEagP697HFLj iTuaSCAhqQ3yBWPxpQNyzUsfKF 4wNTBpbjsnPlBFTkNFLCBISUxE LAYQWF48LZ91mYFwc0R8lSP5 V8BuTKYdqjsauqkomGG8CLEfOX AcsV08iCVmNCciRr6rv5O3p714 NJSnIPEcoO62Ug2llSczGHLo nNCRdA7iayckn3siqibsFzVoWF OkPJe3RGk6OXKsiJquKoVcJXB0 BkW3XYX3eKPohT2vtThywbfr pA0qYvg+IYSwKhXdGOc9LGyujR Q+PLXtQHQ9zLidATlbSFXwgO4h GHHmH0n6BrRgIoK3WZioE1Ww BPEftingQh33vK3hDmRkUnG4UN ssZ4FxmnS2CYOrrYTjSLmoLXE7 I94iw0C8TXHaNVQbXOY9dXT9 qC9xeGjrrfoceMFrcHylzcIxlC hcURbfGZzsA863FRLtnXfiJaa8 ISrqJMCvXX30TQ46yDGbn6V2 tTU7T1PiTRYstqtgbrxgdZN6AP DlLAHbvE38qGDlZCxiSa2hq1C7 f067UKCjECHkiV36Mv6kuPpg HCEriCGRtS9ldyhko5vkpownXb JeHFIfJYt8EIa4DLHvyYyaHuOj YPF4WsQ3TOR2lIPgsN8ojBdp xvelkZ6mCnu+WwXfTJbqJN22XD 76tBMtm5N5qKN8T0EwYOWxruat azrldFY8IPWsKFHkcR00kPPw BOtvFn7ad7R8i281PWYcBAOpgF 19Np8uqUpmDALkkGEQoY2sfqzp c9nwaqwgChCbDZDpEMo8ONz6 SLPncIbuCrXnOWM9SgO2YIU5cS LchW9chVtompoysW4hUik+T3V0 hTP4gTCcfQgnuGE+UC07ec17 A1UvXigzUty1AVKbKSC0tVZ4gY 0uCNNqSXjyf4E3vKL6W8JmxnGg za2rz3ucBNMbBTlxF78koBKw m2H6OESwzUV9ZWQqjVceAtTgeH 93Oyc+SQBieXipv0KmSwkqa3rt m3fbdPm9YfNcDKZgbfWgcUmz LZP8c3HbGb71B57dLCupGRHnUQ UvHCHbEAKfeBzebo3jzY8qHy9+ MVOkcKC8fJH7yP8eZhKwFlU4 YDzgK843GfCirYBxMiskd9qzo0 ldhBn1UzJyFOPqagZwhNleFNQ1 r5VbBh05L7YrzVnsb4SfTzt5 cx80tBBsc6Y1mZQ6H6KeWTNngp haqKCjpKexDZ4gNNArtzhwBPMr fO8nOHPrK6l9YdVkTkT0DJuh V7RaygQ4OSVhhVCfLNJnuARRpA 0yglfpp5njisjyEiTlZXHvIFg0 ZFo1ULQfjWgnXaIpODF5KpX7 YWV7mGLxoI1izKqwbnpgbU5xOw c+PQa6d3cesIQqLA0naDZ7KW02 UH34tBRlf4I5qSZ9Y6LnUUYz mhtsbdayuTG9GRWkUAAheE32Qg 9loSoqVw9sBCHxVUP4QOKkeAAq J1XfmA1fThOfBJUlSNPfV2Tz lWPjUTanJ213BThwFjP4AVCtkx ObS0MkJJUbgUebNjS5c1R9Wc6M LK23YZ51EZ41fPDnb5C2nZZ2 X7WkKNRdcpvsnbjguOD7BRUbGJ XusC57Za2dpNnaLh4rMVDuHWK3 DFQkpTMoH3CgkG0mLzJmZSZn PRFpS8FqaQTfMIkvT675NWlpTp W1LQSyfcVaS0LwGRQrgTphGqJ6 o0Z3Hi1KZq04GH63BY59zDCx g3J2yWG8F7ZlWRRseadyzoefjV O5XMNqJQFdmY61Kk5fcAedVm7g WJVoRPO3KUVpnQGuB5BqlY0h SzPzUVJjIHMkH2NvpPDcNXitX2 50JPeiNaK2AAWvwcVgV1GhMTFa mUzhHlS5c9J4Pc7GUQnngkk0 K9HlCpexjPU+NS36GBQyZZ02lP ByaFJul3azlZg1IdLwFRRkIOR5 uHzpJUtaf0MsVMXmI68mtXWj c2U6 (more content not included)... Normal [facility] Coding Summary. CD:[id number] Gh0bWw +PGhlYWQ+SK6EGUJgK86xtGVsx J8MH9xRCS0QINPTOMAXCS0YIU0 jiPF4JEjrO4OnfuUs DqwbqACoSM74XMx3MDA9sUroNZ ribB0rlDExX8k3EuYtVL13lP70 HGtfZGGtFnB8BzGmtjepsYOt G0xpVaUthMMxFnk+PHRhYmxlIH tlVQKrCHjxJUFyBfGysUgyYR6a Pn0nXTNyWVKzmBqukPPbEwOc d4fbNYCyNGjoAL7mlPcrY3DveB P9NJVnp9q0Hm68gQF+PHRkIHN0 qNvbKKzzt210HdVzf6bnRKR2 sAUrRHrcSSB7X40eo5N8MSLqSZ YzRNF5jEA5jX2hnGqelrbmE1Xq yINcRpY4LDX3iIEczQ2viDkb mvlqsX3gJjr+A17AIU9EHVUEOE 8JOvo9Z5PuRhlmhZT+EQ66VXZr BI92xGLcnIZsd6pvwCv6ZeJm EOFwFNN8iSmzIIjrr0WoGIDwM0 2acMKdd6I4THLqmYizvOQhEhSf tOZ4mD2bJGnrkpjjz3pivsyu Sjhnr0jovq34bB50S71qUBdoEC XpKWP2AHUyLEMfnHfumq0zdJ9a Ii8+JLams0aow5pndXa2EjEj YKVcidMstDfaHVG6a5JvZn83I9 RdfQdxk2IvDow2mr22tATjl4J5 cYD5ASoiEPZbyZ5iNDppTiK0 AALsQuIkuE38zZLrARwgMc0gzW raeHhxWK8gFMKpjfbxAUGfvJ8l ZWVfqHVebGsmIU1tRIMzixvl x585EmExVGR1LGRxzIOmP6AfsG 5wFkNyAJQcTYGqL6RfvBNtICmb W332HFobKrV6EMBqidLuH8Xc RHCxsXaqVvE2s7J7Wu4Sh6Sfnw vlHUL8ZKnrSYD4PtR4SaGxJfO7 L1BdPfg9MYXngKjfEE8bE2Eb BXNrneovakgygCW2WZUdHSTloF 71mCPyONokBs8dj1D2n001CXZf UALhdT87Xd6csAfzKHCzlSRR gC1qvosys3oebieqPcOlSDBgPJ u5NOu8PNNleVmaHqFvYMN9KiX7 YER3cRTdpJ2gzRujbuglaT6v Oyc+T09uhT0zGCP4HIO7upgeUS NtotDoFM26RO08H8ZgBukovGZt bGU+ZEQcduZeoReaOA8nTvZt i6zbm0MmGGerQ0HxWNCtQUzvJv o1JYLtGSL9tKT5lM8wETJlHUlm c3B3mDI4L5ZpkfRnqk2gg2af KJVuZSxkX27psJUjg6O9WPBhqU B3BCLvdFcrBgBciQ08Gfs+PGNv rBzjc2MfQurcx8uiy4vnmAn8 EcLpUNVsfaDutWsbOJB2w4FoJk 43B43yQRxqCJTyUFLaEZXmYHYm nVhlvz7qqZ8tIt4+PGNvbCB3 iZA2eY2wTUGuFhX3ANliQ212Pl CuwGQkItkfr2pze8ngeGh8PjVw ZKTlghMuxEygBWU8p1CnUg58 G31hLTitSCPtUVHqYODvJFBtbW kmdx5xyM7rWf8+SM3nt4zqzr41 gW41fHC+SIHdKOL4bNylBRhg CTBlhJ6wEOdrTsH2PWEdYdTwnE 34wXEiSAiuIo8woOrdnJxrZU8y JPDiyvtni900UuOgv0boTUEm vCVmYWozBCC5P53mb1Z7TAJcTU VqCHZ8mJK0hK1zgOrpmhjybFTg iEwyqkMugFniSGszVTurY958 IHRvcDsnPlBhdGllbnQgTmFtZT b8E5TkAnt8YMUnoNqhFY6shQDk IRxlWv2njWgdcLqnRY6iILAz oxjyv665DqVos5lmSBKdtEMeJC yvOSY9G29up2Q1WVHbWQQtYAF3 rVR5lI6qxYqeoujrsGQbxIuv uoMtlDdcTIrfEDreK721AOSlyE jgBsNkfmHsDRDicFM4UU59WX04 dLObo9O1kLI4V7BoGCRimeqf nxgfwRC4UTIvTANjaN61Rp0fyP tyVz2fJVVaECI7JFKhsTWwK3Gf zK2vOhCzAECwAIHgR2YxjBPo PGjrJ362MGwzDmW4MRNwynEvT2 VlSFVmuGjjFqO7d9E8Hm7YJ4V0 ZS38JG90bQPrn2R1oZS1W6Rf ZUDlfsybyxzawOS8KIDbBTXwtW 34Yb2ndIxsMu9jYUUvBQQ7AWPq eJQiU2QnfU1jFfZkMHJkOHCu E1JuhUItKQcmP546PUsfPbC9WE LpptBbD5KxZRRemHdsToU4i6Y5 Gn3RNUo2ZG94YV15uQEdm9O7 hVT2B3VhFNTpwnzvvflcsOT2MH LtFCXhaN21Au7fnSlkZr0bGIFz RWH1JJWwtCNxS0TboM7uKzMq NLAfLDHvT0JjdZUzIUwdH592IE xuHpT7DIGvujDbP6IbIGGaqKsn ZaM9u7P2Kc8ALVCtQO23LRK4 oVA5CX00SN93T6RwKztjsJCrtZ U+PHRhYmxlIHdpZHRoPScxMDAl YbIfiLktJN8dSg7dCVGcNRJs tSmtaQFdXwPmy9udNFCeTGvjHI 8isMkxT7KovCS0UEFyg7y7Gt02 P14rB1RbrUD+WDAugBD7lHQ6 aZ8dBzTwOrM5KPpvB400DcHgbI LwThfdp9dms1hxcNz0KxK3VRLp phRpoUknGOG7k0NwXr73S45b IHdpZHRoPSIxNSUiIHZhbGlnbj 5twE4gUb2+SWCzgRQ5cQN8sY3r OlRjWzC8QZlqP617HePyhEKp Mifgo7jzn9vqfXk9YzHxZPAauk LixZfqINJ6k5IdTk79G8CsuCon k9JrUzf1lf48dTMqj0J4oPI7 Y2EqYEMhgwhtnATvrThgZX1jQS EilzvyBCUjjC8nSXDxS7h6HkMv BfZ7GTnbM2NqipQ7RQZxlTBs NMbpEYP3C37nl0C7PLKsFFBpRA O6pJH1nZ5iaSwiwbarqCFysDpi iiQlfDydMGeoPDfbP910CILh uXblVTGwzF7sOMTwdUMctWuqHP 4wNTBpbjsnPlBFTkNFLCBISUxE DAFXNI47XF87hXKal6M8fHW9 D1VuFDUkmhdbdmslaYZ3KUDoVX TtnR62gRHpFHcfNr5rw0N8y010 QZRhEYRsmK81Fs0goOkdROCb vOJExU7lvekmf7envznrNfZeLF RjYMa0MOl2BFAbmYygKqLwHKA9 ZfO9DQK2nWHfeD7skHgyljfw gT0nTbk+KLBdRtWqANr4DIssbW Q+TPHpKCN4kVcuCMdsZPLdiC0y ILDwB7k2ElVjGsD5EFetY4Rz HAPsbivuOy84dE6iJsPuYsZ8SY czV2XoujY6MNSaeOHwCYcyHXZ2 Q59ge2J3FCGbGKJoDPY1oUA6 gF5lyZucpyqnhMYntKzthdEnnG tgGBddIAchE899VEWxyUqsDcx4 UPtfARJtVI97SI69fCAcu7F3 rOD9K6PdPHKxczmdfthsnPV1NV VjGGHeiI41dWLyPQbtLr3jf1L5 k409KLWhXJZpuE90Ru4rmLuk VHAtrFWKzT1uzjeem2koebitIz MlOBYbOLf7MNh0RGDtwGbmXjUt TIJ6ZpE4KAM1jQLnwZ7ecRap chrxfK9hEnf+XzNpZBklYP06PN 33iKJhz7G7aIM9S3RnARKtckxx yngbjMT8AMGqAMYgdE41iQRn FHgzNh7lf7H9t006BCNsNHKoqC 36Un2xzVjdHIVnyKVCtF2mbtrg u8atslibDuUyRMDsHXb5TYo9 PSXbdWcyEhZrKKV5KbZ1EPC2nN LmxS5uwFlhfypljI8zYfu+TGFi DEIgb3Glc1AtDF33LR13X4Qn PjwvdGFibGU+PHRhYmxlIHdpZH UbXLbgMEYeJnRzuImbCB0lSu8x VTUeYMSghSbnwLAjTaGwg0vg CAZpYKevLN1myObpX5IiqST1PK Rvh5t3An82V28bN8EmrZT+PGNv fFO6cID9hZ1eWwWgMqB1XQdh X597OjGowRUmEtxdk9wje6oaiN e3DxLsNQOzemItgDroXCU8k4Qm Be88I52dJVbjRADaPQOcCGOo CKAukNhmer4ztY4dMy0+PGNvbC Q2eSR1aE1sMdJdMvV7NMgaG087 GdIrbRXoRwqfI85yJ5XnuTS+ YPKlPqd6XDLwdPrmBV9ylLFnHV xpMo5fMMC2SzKzFqTzXNncE8Rg IALugkjqrjtuwKZ2XIDuVAVk sX15Hl0hiWhsQn4lKDWvVMP7EA XncKRyE4GkrL7aBdVhXMXkOGLl L5KvmRHlMEgcI526EXiqEyN7 CZAgduIpG9SzLPGqvBvkZdN5h5 Q6Ik6YaSuseEXiDO4mHaYlYEe9 Z4YeXdf1BXDmfMhxFU9qjBAk TSttOi5cjNznjTqsUR6hJBCdmi isr923WeSea5mhNBSleIEfTBdp VHM2C42ak7G2FXUhNNPbYYS4 pFG1eL9nuLjmzijprCXymWzyxj DecZseNPotLGxhA543LGXusThj LjTXNxv8W5RwUfi4CWUsdBgu NX3csDQuEJrmWu2msXlquSvcRD 6sNWFdgmhzs090SwBxn7oaBCPm gHGbEJzhZVR6P09pu8N5RYFb DMKhVPG2kAK9rV2skAouftomrA IayMkknbKyvRbqZJdeGJhwU470 NVLupWfpEy8WQgh4C2AqMxi1 ITEccJaqQJ1ywRXiEThrVw3hoW banYegCO1jUGMeiacmy406CmZg g2upIILbmRCdPSutMCC4B01r n3G5QENcLHMbPHH0nHV8iQ4skC lnbjogbGVmdDsgdmVydGljYWwt CEsiU078WCUikJfvQyDydNPv OjwvdGQ+KS09tw19Q4WaBnwtLp b3OUJdBUJ5nRY6eZ3tCRRaGQpo e5X4jYF3U1GinuUwmq8tu1ck YXBz (more content not included)... Normal [facility] Enteric Panel by PCRon 07-18 C. coli+jejuni+upsalien sis DNA ULICES+non-probe Ql (Stl) Not detected Normal [facility] Comment on above: Result Comment: Test ing was performed utilizing reverse dust box worker (RT), polymerase chain reaction (PCR), and array [...] nulcleic acid test. Performed By: #### 4 [id number], [id number], [id number], [id number], [id number], [id number] ####[facility] [address] [place] [address] E. coli stx1+stx2 genes ULICES+non-probe Ql (Stl) Negative Normal [facility] Comment on above: Performed By: #### 4 [id number], [id number], [id number], [id number], [id number], [id number] ####[facility] [address] [place] [address] Enteric Panel by PCR Negative Normal [facility] Enteric Panel Intrl QC Pass Normal [facility] Comment on above: Result Comment: Test ing was performed utilizing reverse dust box worker (RT), polymerase chain reaction (PCR), and array [...] 1 and 2. Performed By: #### 4 [id number], [id number], [id number], [id number], [id number], [id number] ####[facility] [address] [place] [address] Norovirus genogroup I+II RNA ULICES+non-probe Ql (Stl) Detected Abnormal [facility] Comment on above: Result Comment: Resu lts Called To [facility] for Dr. Jama By [facility] And Read Back For Confirmation On 07/18/2022 08:49:23 EDT. Performed By: #### 4 [id number], [id number], [id number], [id number], [id number], [id number] ####[facility] [address] [place] [address] Rotavirus A RNA ULICES+non-probe Ql (Stl) Not detected Normal [facility] Comment on above: Performed By: #### 4 [id number], [id number], 49513858, [id number], [id number], [id number] ####[facility] [address] [place] [address] S. enterica+bongori DNA ULICES+non-probe Ql (Stl) Not detected Normal [facility] Comment on above: Result Comment: This test result should be correlated with clinical presentations and medical history by a healthcare provider to determine its clinical significance. Performed By: #### 4 [id number], [id number], 31662590, [id number], [id number], [id number] ####[facility] [address] [place] [address] Shigella species+EIEC invasion plasmid antigen H ipaH gene ULICES+non-probe Ql (Stl) Not detected Normal [facility] Comment on above: Performed By: #### 4 [id number], [id number], [id number], [id number], 55126986, [id number] ####[facility] [address] [place] [address] V. cholerae+parahaemoly ticus+vulnificus DNA ULICES+non-probe Ql (Stl) Not detected Normal [facility] Comment on above: Performed By: #### 4 [id number], [id number], [id number], [id number], [id number], [id number] ####[facility] [address] [place] [address] Y. enterocolitica DNA ULICES+non-probe Ql (Stl) Not detected Normal [facility] Comment on above: Performed By: #### 4 [id number], [id number], 63489437, [id number], [id number], [id number] ####[facility] [address] [place] [address] C. diff by PCRon 07-17-2022 Clostridium difficile by PCR see comment Invalid Interpretation Code [facility] Comment on above: Result Comment: Unab [...] its clinical significance. Performed By: #### 4 [id number], [id number], 99534333, [id number], 03668036, [id number] ####[facility] [address] [place] [address] Fecal WBC Lactoferrinon 07-02 Fecal WBC Lactoferrin Positive Abnormal Negative [facility] Comment on above: Result Comment: The semi-quantitative detection of elevated levels of fecal lactoferrin is a marker for fecal leukocytes and an indication of intestinal inflammation. Performed By: #### 4 [id number], 36625016, 57276920, [id number], 31415828, 72904393 ####[facility] [address] [place] [address] Consent for Treatmenton 07-02 Consent for Treatment [id number] Normal [facility] Gastroenterology Office/Clin ic Noteon 07-15-2022 Gastroenterology Office/Clinic Note Chief Complaint f/u ER- abd pain, diarrhea and vomiting HPI Staff This is a 76 year old female who presents today for a referral by Sue for abnormal radiology testing. Patient seen in [facility] 01/2022 for complaints of diarrhea, abdominal pain and nausea.- CT and labs completed History of Present Illness Sylvia presents today for abdominal pain, diarrhea, and vomiting. She was recently seen in the [place] emergency room with abdominal pain, diarrhea, and vomiting. She notes that she had a heart transplant in [place] in 2017. Afterwards she experienced diarrhea which [...] She was prescribed Creon 24 mg at [facility] in 2017, due to being [...] patient had a recent CT scan at [facility] that showed a small lesion [...] by h (more content not included)... Normal [facility] Comment on above: Result Comment: Elec [...] insufficiency Pancreatic lesion Valvular heart disease Normal [facility] 07-05-2022 CNPN Telephone (JULIAN [facility]) -- SYLVIA HERRERA ([id number]) 1945 F Date Time Provider Department 07/05/22 SHO CROWLEY [facility] During your visit today, we recorded the following information about you: Sho Crowley APRN.VENDING MACHINE COLLECTOR 07/05/2022 10:48 AM Signed 07/03/22 labs: FK: [...] care with another team. Sho Crowley APRN, VENDING MACHINE COLLECTOR Pager: [phone] July 05, 2022 10:42 AM Post Heart [...] transplant. No Dr Ellerp: Rfl: TACROLIMUS/FK-506 BL [[id number]] Order #: [id number] FUTURE Prescriptions as of 07/05/2022 - tacrolimus [...] mg by mouth three times daily. - yorrgq-jxmtlcqd-oevanih (CREON) 24,000-76,000 -120,000 unit cpDR Take 3 [...] 09/02/2019 A (more content not included)... Normal [facility] BOX TEST SENT OUTon 07-03-20 SENT TO REF LAB 07/03/2022 Normal [facility] Comment on above: Performed By: #### E RANDALL PINON #### [facility] [address] [address] [address] Hardeep Rivera CBC AUTO DIFFon 07-03-2022 BASO # 0.0 103/ul Normal 0.0-0.1 [facility] Comment on above: Performed By: #### C BC #### [facility] [address] [address] [address] Hardeep Rivera Basophils/100 WBC (Bld) 0.3 % Normal 0.2-2.0 [facility] Comment on above: Performed By: #### C BC #### [facility] [address] [address] [address] Hardeep Rivera EO # 0.1 103/ul Normal 0.0-0.7 [facility] Comment on above: Performed By: #### C BC #### [facility] [address] [address] [address] Hardeep Rivera Eosinophils/100 WBC (Bld) 0.9 % Normal 0.9-7.0 [facility] Comment on above: Performed By: #### C BC #### [facility] [address] [place] [address] Dr. Hardeep Rivera Erythrocyte distribution width (RBC) [Ratio] 12.2 % Normal 11.0-15.0 [facility] Comment on above: Performed By: #### C BC #### [facility] [address] [place] [address] Dr. Hardeep Rivera Hematocrit (Bld) [Volume fraction] 42.3 % Normal 36.0-48.0 [facility] Comment on above: Performed By: #### C BC #### [facility] [address] [place] [address] Dr. Hardeep Rivera Hemoglobin (Bld) [Mass/Vol] 14.0 g/dL Normal 12.0-16.0 [facility] Comment on above: Performed By: #### C BC #### [facility] [address] [place] [address] Dr. Hardeep Rivera IG # 0.04 10e3/ul Critically high 0.00-0.03 [facility] Comment on above: Performed By: #### C BC #### [facility] [address] [place] [address] Dr. Hardeep Rivera IG % 0.5 % Normal 0.0-0.5 [facility] Comment on above: Performed By: #### C BC #### [facility] [address] [place] [address] Dr. Hardeep Rivera LYMPH # 0.8 103/ul Critically low 1.2-3.8 [facility] Comment on above: Performed By: #### C BC #### [facility] [address] [place] [address] Dr. Hardeep Rivera Lymphocytes/100 WBC (Bld) 10.9 % Critically low 20.5-60.0 [facility] Comment on above: Performed By: #### C BC #### [facility] [address] [place] [address] Dr. Hardeep Rivera MANUAL DIFF REQ NO Normal [facility] Comment on above: Performed By: #### C BC #### [facility] [address] [place] [address] Dr. Hardeep Rivera MCH (RBC) [Entitic mass] 29.7 pg Normal 26.7-34.0 [facility] Comment on above: Performed By: #### C BC #### [facility] [address] [place] [address] Dr. Hardeep Rivera MCHC (RBC) [Mass/Vol] 33.1 g/dL Normal 29.9-35.2 [facility] Comment on above: Performed By: #### C BC #### [facility] [address] [place] [address] Dr. Hardeep Rivera MCV (RBC) [Entitic vol] 89.8 fL Normal 81.0-99.0 [facility] Comment on above: Performed By: #### C BC #### [facility] [address] [place] [address] Dr. Hardeep Rivera MONO # 0.9 103/ul Critically high 0.3-0.8 [facility] Comment on above: Performed By: #### C BC #### [facility] [address] [place] [address] Dr. Hardeep Rivera Monocytes/100 WBC (Bld) 11.1 % Normal 1.7-12.0 [facility] Comment on above: Performed By: #### C BC #### [facility] [address] [place] [address] Dr. Hardeep Rivera NEUT # 5.8 103/ul Normal 1.4-6.5 [facility] Comment on above: Performed By: #### C BC #### [facility] [address] [place] [address] Dr. Hardeep Rivera Neutrophils/100 WBC (Bld) 76.3 % Critically high 43.0-75.0 [facility] Comment on above: Performed By: #### C BC #### [facility] [address] [place] [address] Dr. Hardeep Rivera Platelet mean volume (Bld) [Entitic vol] 9.5 fL Normal 9.5-13.5 [facility] Comment on above: Performed By: #### C BC #### [facility] [address] [place] [address] Dr. Hardeep Rivera PLT 191 103/ul Normal 150-450 [facility] Comment on above: Performed By: #### C BC #### [facility] [address] [address] [address] Hardeep Rivera RBC 4.71 106/ul Normal 4.20-5.40 [facility] Comment on above: Performed By: #### C BC #### [facility] [address] [place] [address] Dr. Hardeep Rivera WBC 7.6 103/ul Normal 4.0-11.0 [facility] Comment on above: Performed By: #### C BC #### [facility] [address] [place] [address] Dr. Hardeep Rivera CNPMary Kay 07-03-2022 CNPN Telephone (JULIAN [facility]) -- SYLVIA HERRERA ([id number]) 1945 F Date Time Provider Department 07/03/22 [...] mg by mouth three times daily. - pwclyj-yyxyaaza-wkvnmtx (CREON) 24,000-76,000 -120,000 unit cpDR Take 3 [...] LINDEN WEEMS on 07/03/22 Normal [facility] PROF CHEM 8 (BAS METB)on Anion gap [Moles/Vol] 12.9 mmol/L Normal [facility] Comment on above: Performed By: #### Deedee PINON UMICRO #### [facility] [address] [place] [address] Dr. Hardeep Rivera Calcium [Mass/Vol] 9.0 mg/dL Normal 8.5-10.1 [facility] Comment on above: Performed By: #### Deedee PINON UMICRO #### [facility] [address] [place] [address] Dr. Hardeep Rivera Chloride [Moles/Vol] 98 mmol/L Normal 98-107 [facility] Comment on above: Performed By: #### Deedee PINON UMICRO #### [facility] [address] [address] [address] Hardeep Rivera CO2 [Moles/Vol] 28.1 mmol/L Normal 21.0-32.0 [facility] Comment on above: Performed By: #### Deedee PINON UMICRO #### [facility] [address] [address] [address] Hardeep Rivera Creatinine [Mass/Vol] 1.64 mg/dL Critically high 0.55-1.02 [facility] Comment on above: Performed By: #### Deedee PINON, UMICRO #### [facility] [address] [place] [address] Dr. Hardeep Rivera EGFR-AF KUWAITI 37 mL/min/1.73m2 Critically low >=60 [facility] Comment on above: Performed By: #### RANDALL OLSON #### [facility] [address] [place] [address] Dr. Hardeep Rivera EGFR-NON AF KUWAITI 30 mL/min/1.73m2 Critically low >=60 [facility] Comment on above: Performed By: #### HARI OLSONRO #### [facility] [address] [place] [address] Dr. Hardeep Rivera Glucose [Mass/Vol] 114 mg/dL Critically high 74-106 [facility] Comment on above: Performed By: #### HARI OLSONRO #### [facility] [address] [place] [address] Dr. Hardeep Rivera Potassium [Moles/Vol] 4.0 mmol/L Normal 3.5-5.1 [facility] Comment on above: Performed By: #### HARI OLSONRO #### [facility] [address] [place] [address] Dr. Hardeep Rivera Sodium [Moles/Vol] 135 mmol/L Critically low 136-145 [facility] Comment on above: Performed By: #### HARI OLSONRO #### [facility] [address] [place] [address] Dr. Hardeep Rivera Urea nitrogen [Mass/Vol] 24.0 mg/dL Critically high 7.0-18.0 [facility] Comment on above: Performed By: #### HARI OLSONRO #### [facility] [address] [place] [address] Dr. Hardeep Rivera Urea nitrogen/Creatinine [Mass ratio] 14.6 mg/mg Normal [facility] Comment on above: Performed By: #### HARI OLSONRO #### [facility] [address] [place] [address] Dr. Hardeep Rivera [facility] Tacrolimus (Bld) [Mass/Vol] 12.4 ng/mL Normal 5.0-20.0 [facility] Comment on above: Order Comment: Speci [...] Test performed by chemiluminescent immunoassay using [employer]. Performed By: #### 1 1253-2 ####[facility] LABCLIA [id number] [place] [address] [place] MG MAMM SCREEN 3D TRISHA CADon 05-28-2022 MG MAMM SCREEN 3D TRISHA CAD Patient: SYLVIA HERRERA Exam Date: 05/28/2022 : 1945 Gender:F Ordering : DR TAO ROONEY . Admission #: [id number] Family : Order #: [id number] CLICK HERE TO VIEW EXAM RADIOLOGY REPORT [...] Treatments None Family Cancers None LOCATION: [facility] BREAST COMPOSITION: Heterogeneously dense,which may [...] MD on 05/28/2022 at 10:20 Normal [facility] Physician Referralon 022 Physician Referral [id number] [facility] 05-08-2022 ODETTEN Telephone (CARD MARICEL DEXTER) -- SVETLANASYLVIA BELL ([id number]) 1945 F Date Time Provider Department 05/08/22 LOIDA MATHIAS [facility]ARD [facility] During your visit today, we recorded the following information about you: Linden Weems 05/08/2022 11:50 AM Signed Patient had labs drawn 05/07/22, uploaded to scanned docs. Linden Weems Administrative Vehicle Maintenance Supervisor Loida Mathias APRN.CNP 05/08/2022 3:21 PM Signed [...] transplant. No Dr Ellerp: Rfl: TACROLIMUS/FK-506 BL [[id number]] Order #: [id number] FUTURE Prescriptions as of 05/08/2022 - tacrolimus [...] mg by mouth three times daily. - vellez-qkyvoume-pcmbyyo (CREON) 24,000-76,000 -120,000 unit cpDR Take 3 [...] 05/19/2014 [facility] (more content not included)... Normal [facility] BOX TEST SENT OUTon 05-07-20 22 SENT TO REF LAB 05/07/[address] [facility] Comment on above: Performed By: #### E RUR, UMICRO #### [facility] [address] [place] [address] Dr. Hardeep Rviera CBC AUTO DIFFon 05-07-2022 BASO # 0.0 103/ul Normal 0.0-0.1 [facility] Comment on above: Performed By: #### E RUR, UMICRO #### [facility] [address] [place] [address] Dr. Hardeep Rivera Basophils/100 WBC (Bld) 0.4 % Normal 0.2-2.0 [facility] Comment on above: Performed By: #### Deedee PINON, UMICRO #### [facility] [address] [address] [address] Hardeep Rivera EO # 0.1 103/ul Normal 0.0-0.7 [facility] Comment on above: Performed By: #### Deedee PINON, UMICRO #### [facility] [address] [address] [address] Hardeep Rivera Eosinophils/100 WBC (Bld) 1.0 % Normal 0.9-7.0 [facility] Comment on above: Performed By: #### E RUR, UMICRO #### [facility] [address] [address] [address] Hardeep Rivera Erythrocyte distribution width (RBC) [Ratio] 12.6 % Normal 11.0-15.0 [facility] Comment on above: Performed By: #### E RUR, UMICRO #### [facility] [address] [place] [address] Dr. Hardeep Rivera Hematocrit (Bld) [Volume fraction] 44.0 % Normal 36.0-48.0 [facility] Comment on above: Performed By: #### HARI OLSONRO #### [facility] [address] [place] [address] Dr. Hardeep Rivera Hemoglobin (Bld) [Mass/Vol] 14.0 g/dL Normal 12.0-16.0 [facility] Comment on above: Performed By: #### HARI OLSONRO #### [facility] [address] [place] [address] Dr. Hardeep Rivera IG # 0.02 10e3/ul Normal 0.00-0.03 [facility] Comment on above: Performed By: #### HARI OLSONRO #### [facility] [address] [place] [address] Dr. Hardeep Rivera IG % 0.3 % Normal 0.0-0.5 [facility] Comment on above: Performed By: #### HARI OLSONRO #### [facility] [address] [place] [address] Dr. Hardeep Rivera LYMPH # 0.6 103/ul Critically low 1.2-3.8 [facility] Comment on above: Performed By: #### HARI OLSONRO #### [facility] [address] [place] [address] Dr. Hardeep Rivera Lymphocytes/100 WBC (Bld) 8.2 % Critically low 20.5-60.0 [facility] Comment on above: Performed By: #### HARI OLSONRO #### [facility] [address] [place] [address] Dr. Hardeep Rivera MANUAL DIFF REQ NO Normal [facility] Comment on above: Performed By: #### HARI OLSONRO #### [facility] [address] [place] [address] Dr. Hardeep Rivera MCH (RBC) [Entitic mass] 29.4 pg Normal 26.7-34.0 [facility] Comment on above: Performed By: #### HARI OLSONRO #### [facility] [address] [place], [place] [id number] Dr. Hardeep Rivera MCHC (RBC) [Mass/Vol] 31.8 g/dL Normal 29.9-35.2 [facility] Comment on above: Performed By: #### Deedee PINON, UMICRO #### [facility] [address] [place] [address] Dr. Hardeep Rivera MCV (RBC) [Entitic vol] 92.2 fL Normal 81.0-99.0 [facility] Comment on above: Performed By: #### E KATHRIN, UMICRO #### [facility] [address] [place] [address] Dr. Hardeep Rivera MONO # 0.8 103/ul Normal 0.3-0.8 [facility] Comment on above: Performed By: #### Deedee PINON, UMICRO #### [facility] [address] [place] [address] Dr. Hardeep Rivera Monocytes/100 WBC (Bld) 9.6 % Normal 1.7-12.0 [facility] Comment on above: Performed By: #### Deedee PINON, UMICRO #### [facility] [address] [place] [address] Dr. Hardeep Rivera NEUT # 6.3 103/ul Normal 1.4-6.5 [facility] Comment on above: Performed By: #### Deedee PINON, UMICRO #### [facility] [address] [place] [address] Dr. Hardeep Rivera Neutrophils/100 WBC (Bld) 80.5 % Critically high 43.0-75.0 [facility] Comment on above: Performed By: #### Deedee PINON, UMICRO #### [facility] [address] [place] [address] Dr. Hardeep Rivera Platelet mean volume (Bld) [Entitic vol] 10.1 fL Normal 9.5-13.5 [facility] Comment on above: Performed By: #### E KATHRIN, UMICRO #### [facility] [address] [place] [address] Dr. Hardeep Rivera PLT 188 103/ul Normal 150-450 [facility] Comment on above: Performed By: #### RANDALL OLSON #### [facility] [address] [address] [address] Hardeep Rivera RBC 4.77 106/ul Normal 4.20-5.40 [facility] Comment on above: Performed By: #### AHRI OLSONRO #### [facility] [address] [address] [address] Hardeep Rivera WBC 7.8 103/ul Normal 4.0-11.0 [facility] Comment on above: Performed By: #### HARI OLSONRO #### [facility] [address] [place] [address] Dr. Hardeep Rivera PROF CHEM 8 (BAS METB)on Anion gap [Moles/Vol] 11.9 mmol/L Normal [facility] Comment on above: Performed By: #### RANDALL OLSON #### [facility] [address] [place] [address] Dr. Hardeep Rivera Calcium [Mass/Vol] 8.7 mg/dL Normal 8.5-10.1 [facility] Comment on above: Performed By: #### RANDALL OLSON #### [facility] [address] [place] [address] Dr. Hardeep Rivera Chloride [Moles/Vol] 99 mmol/L Normal 98-107 [facility] Comment on above: Performed By: #### HARI OLSONRO #### [facility] [address] [place] [address] Dr. Hardeep Rivera CO2 [Moles/Vol] 27.1 mmol/L Normal 21.0-32.0 [facility] Comment on above: Performed By: #### HARI OLSONRO #### [facility] [address] [place] [address] Dr. Hardeep Rivera Creatinine [Mass/Vol] 1.62 mg/dL Critically high 0.55-1.02 [facility] Comment on above: Performed By: #### HARI OLSONRO #### [facility] [address] [address] [address] Hardeep Rivera EGFR-AF KUWAITI 37 mL/min/1.73m2 Critically low >=60 [facility] Comment on above: Performed By: #### Deedee PINON UMICRO #### [facility] [address] [address] [address] Hardeep Rivera EGFR-NON AF [place]I 31 mL/min/1.73m2 Critically low >=60 [facility] Comment on above: Performed By: #### E KATHRIN, UMICRO #### [facility] [address] [address] [address] Hardeep Rivera Glucose [Mass/Vol] 73 mg/dL Critically low 74-106 [facility] Comment on above: Performed By: #### Deedee PINON, UMICRO #### [facility] [address] [place] [address] Dr. Hardeep Rivera Potassium [Moles/Vol] 4.0 mmol/L Normal 3.5-5.1 [facility] Comment on above: Performed By: #### Deedee PINON UMICRO #### [facility] [address] [place] [address] Dr. Hardeep Rivera Sodium [Moles/Vol] 134 mmol/L Critically low 136-145 [facility] Comment on above: Performed By: #### Deedee PINON, UMICRO #### [facility] [address] [place] [address] Dr. Hardeep Rivera Urea nitrogen [Mass/Vol] 33.0 mg/dL Critically high 7.0-18.0 [facility] Comment on above: Performed By: #### Deedee PINON UMICRO #### [facility] [address] [place] [address] Dr. Hardeep Rivera Urea nitrogen/Creatinine [Mass ratio] 20.4 mg/mg Normal [facility] Comment on above: Performed By: #### Deedee PINON, UMICRO #### [facility] [address] [place] [address] Dr. Hardeep Rivera TACROLIMUS/FK-506 BLon 05-07 Tacrolimus (Bld) [Mass/Vol] 3.4 ng/mL Low 5.0-20.0 [facility] Comment on above: Order Comment: Speci [...] situation. Test performed by chemiluminescent immunoassay using [employer]. Performed By: #### F K506 ####[facility] LABCLIA [id number] [address] OF [facility] 05-03-2022 ODETTEN Telephone (JULIAN [facility]) -- SYLVIA HERRERA ([id number]) 1945 F Date Time Provider Department 05/03/22 SHO CROWLEY [facility] During your visit today, we recorded the following information about you: Sho Crowley APRN.VENDING MACHINE COLLECTOR 05/03/2022 2:58 PM Signed received phone call from [facility] group requesting patient's Tacrolimus levels from 04/24. Faxed results to [phone]. Allergies As of Date: 05/03/2022 Noted Allergy [...] mg by mouth three times daily. - ayyzcc-mvcggjgf-vthhebj (CREON) 24,000-76,000 -120,000 unit cpDR Take 3 [...] Status:Closed by SHO CROWLEY on 05/03/22 Normal [facility] BOX TEST SENT OUTon 04-24-20 22 SENT TO REF LAB 04/24/[address] [facility] Comment on above: Performed By: #### RANDALL OLSON #### [facility] [address] [place] [address] Dr. [facility]-2022 ODETTEN Telephone (CARD [facility]) -- SYLVIA HERRERA ([id number]) 1945 F Date Time Provider Department 04/24/22 LOIDA MATHIAS [facility] During your visit today, we recorded the following information about you: Linden Weems 04/24/2022 1:31 PM Signed Patient left message that she had labs drawn today. Linden Weems Administrative Vehicle Maintenance Supervisor Post Heart Transplant J3-4 Loida Mathias APRN.ODETTE 04/26/2022 11:25 AM Signed Received FK level 4.5, drawn 04/24 My chart message sent to patient. Advised to remain on current dose and keep our office updated re: her plans for post transplant follow up. Loida Mathias APRN.VENDING MACHINE COLLECTOR April 26, 2022 11:24 AM Component Latest [...] mg by mouth three times daily. - dhrqfh-cgyjebvb-jjessjn (CREON) 24,000-76,000 -120,000 unit cpDR Take 3 [...] LINDEN WEEMS on 04/24/22 Normal [facility] TACROLIMUS/FK-506 BLon 04-24 Tacrolimus (Bld) [Mass/Vol] 4.5 ng/mL Low 5.0-20.0 [facility] Comment on above: Order Comment: Speci [...] Test performed by chemiluminescent immunoassay using [employer]. Performed By: #### F K506 ####[facility] LABCLIA [id number] [place] [address] [place] FK506 (TACROLIMUS) WHOLE BLO ODon 04-11-2022 Tacrolimus (FK506), Blood 7.3 ng/mL Normal 2.0-20.0 [facility] Comment on above: Result Comment: Trou gh (immediately following transplant) 15.0 . Trough (steady state, 2 weeks or more after transplant): 3.0 - 8.0 . Performed by LC-MS/MS technology. Performed By: #### HARI OLSONRO #### [facility] [address] [place] [address] Dr. Hardeep Rivera BOX TEST SENT OUTon 04-09-20 22 SENT TO REF LAB 04/09/[address] [facility] Comment on above: Performed By: #### HARI OLSONRO #### [facility] [address] [place] [address] Dr. Hardeep Rivera CBC AUTO DIFFon 04-09-2022 BASO # 0.0 103/ul Normal 0.0-0.1 [facility] Comment on above: Performed By: #### HARI OLSONRO #### [facility] [address] [place] [address] Dr. Hardeep Rivera Basophils/100 WBC (Bld) 0.1 % Critically low 0.2-2.0 [facility] Comment on above: Performed By: #### HARI OLSONRO #### [facility] [address] [place] [address] Dr. Hardeep Rivera EO # 0.1 103/ul Normal 0.0-0.7 [facility] Comment on above: Performed By: #### RANDALL OLSON #### [facility] [address] [place] [address] Dr. Hardeep Rivera Eosinophils/100 WBC (Bld) 1.2 % Normal 0.9-7.0 [facility] Comment on above: Performed By: #### HARI OLSONRO #### [facility] [address] [place] [address] Dr. Hardeep Rivera Erythrocyte distribution width (RBC) [Ratio] 12.6 % Normal 11.0-15.0 [facility] Comment on above: Performed By: #### HARI OLSONRO #### [facility] [address] [place] [address] Dr. Hardeep Rivera Hematocrit (Bld) [Volume fraction] 44.1 % Normal 36.0-48.0 [facility] Comment on above: Performed By: #### E RUR, UMICRO #### [facility] [address] [place] [address] Dr. Hardeep Rivera Hemoglobin (Bld) [Mass/Vol] 14.1 g/dL Normal 12.0-16.0 [facility] Comment on above: Performed By: #### E RUR, UMICRO #### [facility] [address] [place] [address] Dr. Hardeep Rivera IG # 0.02 10e3/ul Normal 0.00-0.03 [facility] Comment on above: Performed By: #### E RUTrish, UMICRO #### [facility] [address] [place] [address] Dr. Hardeep Rivera IG % 0.3 % Normal 0.0-0.5 [facility] Comment on above: Performed By: #### E KATHRIN UMICRO #### [facility] [address] [place] [address] Dr. Hardeep Rivera LYMPH # 0.7 103/ul Critically low 1.2-3.8 [facility] Comment on above: Performed By: #### Deedee PINON UMICRO #### [facility] [address] [place] [address] Dr. Hardeep Rivera Lymphocytes/100 WBC (Bld) 10.8 % Critically low 20.5-60.0 [facility] Comment on above: Performed By: #### Deedee PINON UMICRO #### [facility] [address] [place] [address] Dr. Hardeep Rivera MANUAL DIFF REQ NO Normal [facility] Comment on above: Performed By: #### E RUTrish, UMICRO #### [facility] [address] [place] [address] Dr. Hardeep Rivera MCH (RBC) [Entitic mass] 29.3 pg Normal 26.7-34.0 [facility] Comment on above: Performed By: #### E RUTrish, UMICRO #### [facility] [address] [place] [address] Dr. Hardeep Rivera MCHC (RBC) [Mass/Vol] 32.0 g/dL Normal 29.9-35.2 [facility] Comment on above: Performed By: #### RANDALL OLSON #### [facility] [address] [place] [address] Dr. Hardeep Rivera MCV (RBC) [Entitic vol] 91.7 fL Normal 81.0-99.0 [facility] Comment on above: Performed By: #### HARI OLSONRO #### [facility] [address] [place] [address] Dr. Hardeep Rivera MONO # 0.7 103/ul Normal 0.3-0.8 [facility] Comment on above: Performed By: #### HARI OLSONRO #### [facility] [address] [place] [address] Dr. Hardeep Rivera Monocytes/100 WBC (Bld) 10.8 % Normal 1.7-12.0 [facility] Comment on above: Performed By: #### RANDALL OLSON #### [facility] [address] [place] [address] Dr. Hardeep Rivera NEUT # 5.2 103/ul Normal 1.4-6.5 [facility] Comment on above: Performed By: #### RANDALL OLSON #### [facility] [address] [place] [address] Dr. Hardeep Rivera Neutrophils/100 WBC (Bld) 76.8 % Critically high 43.0-75.0 [facility] Comment on above: Performed By: #### HARI OLSONRO #### [facility] [address] [place] [address] Dr. Hardeep Rivera Platelet mean volume (Bld) [Entitic vol] 9.8 fL Normal 9.5-13.5 [facility] Comment on above: Performed By: #### HARI OLSONRO #### [facility] [address] [place] [address] Dr. Hardeep Rivera PLT 200 103/ul Normal 150-450 [facility] Comment on above: Performed By: #### HARI OLSONRO #### [facility] [address] [place] [address] Dr. Hardeep Rivera RBC 4.81 106/ul Normal 4.20-5.40 [facility] Comment on above: Performed By: #### Deedee PINON UMICRO #### [facility] [address] [place] [address] Dr. Hardeep Rivera WBC 6.7 103/ul Normal 4.0-11.0 [facility] Comment on above: Performed By: #### Deedee PINON UMICRO #### [facility] [address] [place] [address] Dr. Hardeep Rivera PROF CHEM 8 (BAS METB)on Anion gap [Moles/Vol] 9.1 mmol/L Normal [facility] Comment on above: Performed By: #### Deedee PINON UMICRO #### [facility] [address] [place] [address] Dr. Hardeep Rivera Calcium [Mass/Vol] 8.3 mg/dL Critically low 8.5-10.1 [facility] Comment on above: Performed By: #### Deedee PINON UMICRO #### [facility] [address] [place] [address] Dr. Hardeep Rivera Chloride [Moles/Vol] 100 mmol/L Normal 98-107 [facility] Comment on above: Performed By: #### Deedee PINON UMICRO #### [facility] [address] [place] [address] Dr. Hardeep Rivera CO2 [Moles/Vol] 28.1 mmol/L Normal 21.0-32.0 [facility] Comment on above: Performed By: #### Deedee PINON UMICRO #### [facility] [address] [place] [address] Dr. Hardeep Rivera Creatinine [Mass/Vol] 1.54 mg/dL Critically high 0.55-1.02 [facility] Comment on above: Performed By: #### Deedee PINON UMICRO #### [facility] [address] [place] [address] Dr. Hardeep Rivera EGFR-AF KUWAITI 40 mL/min/1.73m2 Critically low >=60 [facility] Comment on above: Performed By: #### RANDALL OLSON #### [facility] [address] [place] [address] Dr. Hardeep Rivera EGFR-NON AF [place]I 33 mL/min/1.73m2 Critically low >=60 [facility] Comment on above: Performed By: #### HARI OLSONRO #### [facility] [address] [place] [address] Dr. Hardeep Rivera Glucose [Mass/Vol] 122 mg/dL Critically high 74-106 [facility] Comment on above: Performed By: #### HARI OLSONRO #### [facility] [address] [place] [address] Dr. Hardeep Rivera Potassium [Moles/Vol] 4.2 mmol/L Normal 3.5-5.1 [facility] Comment on above: Performed By: #### HARI OLSONRO #### [facility] [address] [place] [address] Dr. Hardeep Rivera Sodium [Moles/Vol] 133 mmol/L Critically low 136-145 [facility] Comment on above: Performed By: #### HARI OLSONRO #### [facility] [address] [place] [address] Dr. Hardeep Rivera Urea nitrogen [Mass/Vol] 28.0 mg/dL Critically high 7.0-18.0 [facility] Comment on above: Performed By: #### HARI OLSONRO #### [facility] [address] [place] [address] Dr. Hardeep Rivera Urea nitrogen/Creatinine [Mass ratio] 18.2 mg/mg Normal [facility] Comment on above: Performed By: #### HARI OLSONRO #### [facility] [address] [place] [address] Dr. Hardeep Rivera TACROLIMUS/FK-506 BLon 04-09 Tacrolimus (Bld) [Mass/Vol] 9.9 ng/mL Normal 5.0-20.0 [facility] Comment on above: Order Comment: Víctor friend [...] Test performed by chemiluminescent immunoassay using [employer]. Performed By: #### F K506 ####[facility] LABCLIA [id number] [address] Eduardo 10-10-2021 NIK Telephone (JULIAN [facility]) -- SYLVIA HERRERA ([id number]) 1945 F Date Time Provider Department 10/10/21 LOIDA MATHIAS [facility] During your visit today, we recorded the following information about you: Linden Weems 10/10/2021 11:57 AM Signed Patient had labs drawn today Linden Weems Administrative Vehicle Maintenance Supervisor Linden Weems 10/11/2021 10:57 AM Signed Labs uploaded to scanned docs. Linden Weems Administrative Vehicle Maintenance Supervisor Loida Mathias APRN.CNP 10/12/2021 12:28 PM Signed Received outside labs drawn 10/10 -- FK 10.1 Cr 1.4 BUN 24 K 4.8 FBS 105 WBC 8300 Hgb 13 Hct 42 Plts 209 Called and left message for patient. Advised if this was a good 12 hr trough, to reduce Tacrolimus to 0.5 mg BID. Repeat labs in 2 weeks. Loida Mathias APRN.VENDING MACHINE COLLECTOR October 12, 2021 12:27 PM Loida Mathias [...] by transplant. No Dr Caldera: Rfl: TACROLIMUS/FK-506 [[id number]] Order #: [id number] FUTURE Prescriptions as of 10/12/2021 - tacrolimus [...] mg by mouth three times daily. - qkpskl-qunahnoj-xluryzb (CREON) 24,000-76,000 -120,000 unit cpDR Take 3 [...] (more content not included)... Normal [facility] Tacrolimus / [id number] 021 Tacrolimus / FK506 10.1 ng/mL Normal 5.0-20.0 [facility] Comment on above: Result Comment: Thes [...] Test performed by chemiluminescent immunoassay using [employer]. Performed By: #### F K506 ####[facility] [id number] [place], [place] [id number] Eduardo 09-13-2021 CNPN Telephone (CARD MARICEL [facility]TER) -- SYLVIA HERRERA ([id number]) 1945 F Date Time Provider Department 09/13/21 ARELIS NEWSOME [facility] During your visit today, we recorded the following information about you: Linden Weems 09/13/2021 2:52 PM Signed S/w pt, due to transportation and financial constraints she is unable to come to [place] for appointments. Patient is working with her family preservation caseworker to establish care with a local graduate research assistant (had previously been followed by one in [place]).Dr Rice has agreed and plan going forward will be to do a phone visit with pt on 10/03 and she will follow up in the interim with her local Yarn Wrapper. Sending pt mailers and lab order, she will get those done as soon as she can. Linden Weems Administrative Vehicle Maintenance Supervisor Allergies As of Date: 09/13/2021 Noted Allergy [...] mg by mouth three times daily. - bvxyuj-jnqucjar-cmiwlnw (CREON) 24,000-76,000 -120,000 unit cpDR Take 3 [...] Encounter Status:Closed by LINDEN WEEMS on 09/13/21 [facility] OBSOLETEon 09-12-2021 OBSOLETE Refill (CARD [facility] ) -- SYLVIA HERRERA ([id number]) 1945 F Date Time Provider Department 09/12/21 SANDRITA GUERRERO CARD [facility] During your visit today, we [...] mg by mouth three times daily. - gknhal-zwmljfqg-tphwitp (CREON) 24,000-76,000 -120,000 unit cpDR Take 3 [...] [R10.31] 04/29/2014 09/02/2019 Diabetes mellitus, type II ([facility]) [E11.9] 04/29/2014 DREW (acute kidney injury) ([facility]) [N17.9] 05/06/2014 05/19/2014 Orthostasis [I95.1] [...] SANDRITA GUERRERO on 09/12/21 Normal [facility] Vital Signs Date Time Vital Sign Value Performing Clinician Dami charles 04-08-2023 06:45-0400 Diastolic blood pressure 76 mm[Hg] [facility] 04-08-2023 06:45-0400 Heart rate 59 /min [facility] 04-08-2023 06:45-0400 Hourly Rounding [facility] 04-08-2023 06:45-0400 Mean blood pressure 106 mm[Hg] [facility] 04-08-2023 06:45-0400 Respiratory rate 18 /min [facility] 04-08-2023 06:45-0400 SaO2% (BldA) [Mass fraction] 96 % [facility] 04-08-2023 06:45-0400 Systolic blood pressure 167 mm[Hg] Richard [facility] 04-08-2023 05:30-0400 Diastolic blood pressure 88 mm[Hg] Richard Rob[facility] 04-08-2023 05:30-0400 Heart rate 52 /min Richard Rob[facility] 04-08-2023 05:30-0400 Hourly Rounding Richard Roby [facility] 04-08-2023 05:30-0400 Mean blood pressure 114 mm[Hg] Richard Roby [facility] 04-08-2023 05:30-0400 Respiratory rate 18 /min Richard Roby [facility] 04-08-2023 05:30-0400 SaO2% (BldA) [Mass fraction] 95 % Richard Roby [facility] 04-08-2023 05:30-0400 Systolic blood pressure 167 mm[Hg] Richard Roby [facility] 04-08-2023 04:39-0400 Diastolic blood pressure 90 mm[Hg] Richard Roby [facility] 04-08-2023 04:39-0400 Heart rate 56 /min Richard Rob[facility] 04-08-2023 04:39-0400 Hourly Rounding Richard Roby [facility] 04-08-2023 04:39-0400 Mean blood pressure 112 mm[Hg] Richard Roby [facility] 04-08-2023 04:39-0400 Respiratory rate 17 /min Richard Roby [facility] 04-08-2023 04:39-0400 SaO2% (BldA) [Mass fraction] 94 % Richard Roby [facility] 04-08-2023 04:39-0400 Systolic blood pressure 155 mm[Hg] Richard Roby [facility] 04-07-2023 21:48-0400 Respiratory rate 18 /min Richard Roby [facility] 04-07-2023 21:19-0400 Body temperature 98.06 [degF] Richard Ca [facility] 04-07-2023 21:19-0400 Heart rate 65 /min Richard Roby [facility] 04-07-2023 21:19-0400 Respiratory rate 19 /min [facility] Encounters Encounter Date Encounter Type Care Provider Facility Start: 07-01-2024 End: 07-01-2024 ambulatory [facility] Start: 06-18-2024 End: 06-18-2024 ambulatory NON STAFF [facility] Work Phone: Start: 06-18-2024 End: 06-18-2024 Departed Referred [facility] Start: 02-03-2024 End: 02-03-2024 ambulatory [facility] Start: 11-12-2023 End: 11-12-2023 ambulatory [facility] Start: 08-07-2023 End: 08-07-2023 ambulatory [facility] Start: 04-07-2023 End: 04-08-2023 Emergency department patient visit Richard Ca Facility:[facility] Start: 04-07-2023 End: 04-08-2023 Emergency department patient visit Richard Ca [facility] Start: 03-05-2023 End: 03-05-2023 ambulatory SCOT [...] ROGERS Facility:[facility] Start: 09-08-2022 Refill Sandrita Guerrero APRN.VENDING MACHINE COLLECTOR Work Phone: Cardiology Comment on above: Refill Request Start: 08-04-2022 End: 08-04-2022 ambulatory NANCY REYES . Facility:[facility] Start: 08-02-2022 Telephone encounter Loida Mathias APRN.CNP Work Phone: Cardiology Comment on above: Heart Transplant Fol low Up (Labs/) Start: 08-02-2022 End: 08-03-[address] TAO ROONEY . Facility:[facility] Start: 07-27-[address] TAO ROONEY . Facili ty:[facility] Start: 07-17-2022 End: 07-18-2022 ambulatory [facility] Facility:[facility] Start: 07-16-2022 End: 07-17-2022 ambulatory [facility] Facility:[facility] Start: 07-16-2022 End: 07-16-2022 Patient encounter procedure [facility] Start: 07-12-2022 End: 07-13-2022 ambulatory [facility] Facility:[facility] Start: 07-05-2022 Telephone encounter Sho Crowley APRN.VENDING MACHINE COLLECTOR Work Phone: Cardiology Comment on above: Heart Transplant Fol low Up; Lab Meeting Start: 07-03-2022 Telephone encounter Soy Mccann RN [facility] rdiology Comment on above: Heart Transplant Fol low Up (labs) Start: 07-03-2022 End: 07-04-[address] TAO ROONEY . Facility:[facility] Start: 05-28-2022 End: 05-29-[address] TAO ROONEY . Facility:[facility] Start: 05-23-2022 ambulatory [facility] Facility:[facility] Start: 05-08-2022 Telephone encounter Loida Mathias APRN.VENDING MACHINE COLLECTOR Work Phone: Cardiology Comment on above: Heart Transplant Fol low Up (labs) Start: 05-07-2022 End: 05-08-[address] TAO ROONEY . Facility: Start: 04-24-2022 Telephone encounter Loida Mathias APRN.VENDING MACHINE COLLECTOR Work Phone: Cardiology Comment on above: Heart Transplant Fol low Up Start: 04-24-2022 End: 04-25-[address] TAO ROONEY . Facility:[facility] Start: 04-20-[address] TAO ROONEY . Facili ty:[facility] Start: 04-11-2022 ambulatory Loida fontaine APRN.VENDING MACHINE COLLECTOR Work Phone: [facility] Start: 04-11-2022 Follow-up encounter Loida Mathias APRN.VENDING MACHINE COLLECTOR Work Phone: Cardiology Comment on above: Heart Transplant Fol low Up (Labs) Start: 04-09-2022 End: 04-10-[address] TAO ROONEY . Facility: Start: 04-06-2022 Orders Only Loida fontaine APRN.VENDING MACHINE COLLECTOR Work Phone: Cardiology Comment on above: Heart replaced by tr ansplant (HCC) (Primary Dx) Start: 04-04-2022 Refill Loida fontaine APRN.VENDING MACHINE COLLECTOR Work Phone: Cardiology Comment on above: Rx Refills Start: 10-03-2021 End: 10-03-2021 ambulatory NICOLETTE RICE [facility] Procedures Date Procedure Procedure Detail Performing Clinician Start: 08-10-2013 H/O: heart recipient Heart transplan arianna Loida Mathias APRN.VENDING MACHINE COLLECTOR Work Phone: H/O: heart recipient Heart transplanted ( HCC) Loida Iammarino RN RADIATION.VENDING MACHINE COLLECTOR Work Phone: H/O: heart recipient Heart repla nitish by transplant ([facility]) Loida Iammarino RN RADIATION.VENDING MACHINE COLLECTOR Work Phone: H/O: heart recipient Heart transplanted ( HCC) Loida Iammarino RN RADIATION.VENDING MACHINE COLLECTOR Work Phone: H/O: heart recipient Heart transplanted ( HCC) Loida Iammarino RN RADIATION.VENDING MACHINE COLLECTOR Work Phone: H/O: heart recipient Heart transplanted ( HCC) Sho Crowley APRN.VENDING MACHINE COLLECTOR Work Phone: H/O: heart recipient Hx of heart transplant( Confirmed ) Eddie JAMA Plan of Treatment Date Care Activity Detail Author Start: 08-02-2022 Influenza vaccination INFLUENZA (#1) [facility] Start: 07-19-2022 End: 09-18-2022 Tacrolimus [Mass/volume] in Blood TACROLIMUS/FK-506 BL Lab Routine Heart transplanted (HCC) Expected: 07/19/2022 (Approximate), Expires: 09/18/2022 [facility] Work Phone: Comment on above: Expected: 07/19/2022 (Approximate), Expires: 09/18/2022 Start: 05-21-2022 End: 07-21-2022 TACROLIMUS/FK-506 BL TACROLIMUS/FK-506 BL Lab Routine Heart transplanted (HCC) Expected: 05/21/2022, Expires: 07/21/2022 [facility] Work Phone: Comment on above: Expected: 05/21/2022 , Expires: 07/21/2022 Start: 04-23-2022 End: 06-23-2022 TACROLIMUS/FK-506 BL TACROLIMUS/FK-506 BL Lab Routine Heart transplanted (HCC) Expected: 04/23/2022, Expires: 06/23/2022 [facility] Work Phone: Comment on above: Expected: 04/23/2022 , Expires: 06/23/2022 Start: 04-09-2022 End: 06-09-2022 CBC W Auto Differential panel - Blood CBC + DIFF Lab Routine Heart replaced by transplant (HCC) Expected: 04/09/2022, Expires: 06/09/2022 [facility] Work Phone: Comment on above: Expected: 04/09/2022 , Expires: 06/09/2022 Start: 04-09-2022 End: 06-09-2022 Comprehensive metabolic 2000 panel - Serum or Plasma COMP METABOLIC PANEL Lab Routine Heart replaced by transplant ([facility]) Expected: 04/09/2022, Expires: 06/09/2022 [facility] Work Phone: Comment on above: Expected: 04/09/2022 , Expires: 06/09/2022 Start: 04-09-2022 End: 04-06-2023 HEART/LUNG REC POST TX DSA HEART/LUNG REC POST TX DSA ALLOGEN Routine Heart replaced by transplant ([facility]) Expected: 04/09/2022, Expires: 04/06/2023 [facility] Work Phone: Comment on above: Expected: 04/09/2022 , Expires: 04/06/2023 Start: 04-09-2022 End: 06-09-2022 LIPID PANEL BASIC LIPID PANEL BASIC Lab Routine Heart replaced by transplant (HCC) Expected: 04/09/2022, Expires: 06/09/2022 [facility] Work Phone: Comment on above: Expected: 04/09/2022 , Expires: 06/09/2022 Start: 04-09-2022 End: 06-09-2022 Magnesium [Mass/volume] in Serum or Plasma MAGNESIUM BLD Lab Routine Heart replaced by transplant ([facility]) Expected: 04/09/2022, Expires: 06/09/2022 [facility] Work Phone: Comment on above: Expected: 04/09/2022 , Expires: 06/09/2022 Start: 04-09-2022 End: 06-09-2022 TACROLIMUS/FK-506 BL TACROLIMUS/FK-506 BL Lab Routine Heart replaced by transplant ([facility]) Expected: 04/09/2022, Expires: 06/09/2022 [facility] Work Phone: Comment on above: Expected: 04/09/2022 , Expires: 06/09/2022 Start: 04-09-2022 End: 06-09-2022 URINALYSIS, DIPSTICK ONLY URINALYSIS, DIPSTICK ONLY Lab Routine Heart replaced by transplant ([facility]) Expected: 04/09/2022, Expires: 06/09/2022 [facility] Work Phone: Comment on above: Expected: 04/09/2022 , Expires: 06/09/2022 Start: 12-02-2021 ADVANCE DIRECTIVE DISCUSSION ADVANCE DIRECTIVE DISCUSSION [facility] Start: 09-26-2021 COVID-19 VACCINE (3 - Pfizer risk 4-dose series) COVID-19 VACCINE (3 - Pfizer risk 4-dose series) [facility] Start: 09-26-2021 COVID-19 VACCINE (3 - Pfizer risk series) COVID-19 VACCINE (3 - Pfizer risk series) [facility] Start: 03-04-2020 Hepatitis B surface antibody level LDL CHOLESTEROL [facility] Start: 06-14-2015 Hemoglobin A1c/Hemoglobin.total in Blood HBA1C [facility] Start: 11-01-2013 PNEUMOCOCCAL: 65+ (3 - PCV) PNEUMOCOCCAL: 65+ (3 - PCV) [facility] Start: 2009 ADULT PREVNAR ADULT PREVNAR [facility] Start: 1994 SHINGRIX VACCINE (1 of 2) SHINGRIX VACCINE (1 of 2) [facility] Start: 1963 SHINGRIX VACCINE (1 of 2) SHINGRIX VACCINE (1 of 2) [facility] Start: 1963 Urine microalbumin profile DTAP,TDAP,TD (1 - Tdap) [facility] Start: 1962 ANNUAL PCP TEAM HOG KILLER BRENNAN DISEASE VISIT ANNUAL PCP TEAM CHRONIC DISEASE VISIT [facility] Start: 1962 BP CONTROLLED (<130/80) BP CONTROLLE D (<130/80) [facility] Start: 1954 3 comp foot exam completed DIABETIC FOOT EXAM [facility] Start: 1954 Hepatitis B screening URINE ALBUMIN:CREATININE RATIO [facility] Start: 1954 Hepatitis C antibody , confirmatory test DILATED RETINAL EXAM [facility] Start: 1950 PNEUMOCOCCAL: 65+ (1 - PCV) PNEUMOCOCCAL: 65+ (1 - PCV) [facility] [place] [facility] [place] Immunizations Immunization Date Immunization Notes Care Provider Fa cility 06-05-2022 SARS-CoV-2 mRNA (snwvxbbbmji-rydo-gcqrd se) vaccine [place] [employer] [facility] 08-29-2021 SARS-CoV-2 (COVID-19 ) mRNA BNT-162b2 vax Morgan SALAM [facility] 08-02-2021 SARS-CoV-2 (COVID-19 ) mRNA BNT-162b2 vax Morgan SALAM [facility] 07-05-2021 influenza virus vaccine, unspecified formulation Morgan SALAM [facility] 09-29-2020 influenza, unspecifi ed formulation Morgan SALAM [facility] 07-24-2020 influenza virus vaccine, unspecified formulation Morgan RambusAM [facility] 09-02-2017 influenza virus vaccine, unspecified formulation Morgan SALAM [facility] 08-07-2017 pneumococcal conjuga te vaccine, 13 valent Morgan SALAM [facility] 08-14-2016 influenza virus vaccine, unspecified formulation Morgan SALAM [facility] 09-29-2015 pneumococcal conjuga te vaccine, 13 valent Morgan SALAM [facility] 08-04-2015 influenza virus vaccine, unspecified formulation Morgan SALAM [facility] 09-15-2014 influenza virus vaccine, whole virus Loida Iammarino RN RADIATION.[facility] Work Phone: [facility] 09-15-2014 influenza, whole Morgan SALAM [facility] 11-01-2012 pneumococcal polysaccharide vaccine, 23 valent Loida Iammarino RN RADIATION.[facility] Work Phone: [facility] 12-28-2009 novel [id number], all formulations Loida Iammarino RN RADIATION.[facility] Work Phone: [facility] Work Phone: 08-19-2009 influenza virus vaccine, unspecified formulation Loida Iammarino RN RADIATION.[facility] Work Phone: [facility] 09-01-2006 influenza virus vaccine, unspecified formulation Loida Iammarino RN RADIATION.[facility] Work Phone: [facility] Work Phone: 09-01-2006 pneumococcal polysaccharide vaccine, 23 valent Loida Iammarino RN RADIATION.[facility] Work Phone: [facility] Work Phone: NEGATED: Highlighted row has not occurred!07-12-2022 influenza virus vaccine, unspecified formulation Morgan SALAM [facility] Payers Date Payer Category Payer Self-pay 2022 Medicare UHC MEDICARE UHC DUAL COMPLETE HMO SNP [id number] 2022-Present [phone] [address] [place] [address] Medicare [id number] 2022 Medicare UHC MEDICARE UHC DUAL COMPLETE HMO SNP [id number] 2022-Present [phone] [address] [place] [address] Medicare [id number] 2020 Unknown [id number] 1959 Medicaid [id number] 1959 Medicare [id number] 1959 Self-pay [id number] 1959 Unknown [id number] 1944 Unknown [id number] 1944 Unknown [id number] 1944 Unknown [id number] 1944 Unknown [id number] 1944 Unknown [id number] 1944 Unknown [id number] 1944 Unknown [id number] 1944 Unknown [id number] 1944 Unknown [id number] 1944 Unknown [id number] 2.16.840.1.670655.3.579.2.593 1945 Unknown [id number] 2.16.840.1.742566.3.579.2.593 1945 Unknown [id number] 2.16.840.1.854806.3.579.2.593 1945 Unknown [id number] 2.16.840.1.312479.3.579.2.593 1945 Unknown [id number] 2.16.840.1.861555.3.579.2.593 1945 Unknown [id number] 2.16.840.1.212281.3.579.2.593 1945 Unknown [id number] 2.16.840.1.762061.3.579.2.593 1945 Unknown [id number] 2.16.840.1.865911.3.579.2.593 1945 Unknown [id number] 2.16.840.1.765448.3.579.2.593 1945 Unknown [id number] 2.16.840.1.546289.3.579.2.727 1945 Unknown [id number] 2.16.840.1.352376.3.579.2.727 1945 Unknown [id number] 2.16.840.1.406835.3.579.2.727 1945 Unknown [id number] 2.16.840.1.987703.3.579.2.727 1945 Unknown [id number] 2.16.840.1.746529.3.579.2.727 Unknown [id number] 2.16.840.1.572740.3.579.2.593 Social History Date Type Detail Facility Start: 05-13-2019 Tobacco smoking stat us NHIS Ex-smoker [facility] Work Phone: History of tobacco use Cigarette Smoker C [facility] Work Phone: Start: 09-07-2019 Alcohol intake 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) [facility] Start: 1945 Sex Assigned At Not on file C [facility] Start: 07-12-2022 Never smoked t obacco (finding) [facility] Never [facility] Female [facility] History of tobacco use Current smoker [facility] Start: 05-13-2019 Cigarettes smoked current (pack per day) - Reported 0.3 [facility] Start: 05-13-2019 Tobacco use and exposure Smokeless tobacco non-user [facility] Start: 1945 Sex Assigned At Female F [facility] Functional Status Date Assessment Result Facility 04-07-2023 Functional Status N/A [facility] Clinical Notes 11-14-2017 to 07-01-2024 Note Date & Type Note Facility 07-01-2024 Note [facility] Subjective Sylvia Herrera is a 78 y.o. year old female patient being seen for follow up [facility] for syncope. Says she's been having dizzy [...] in 2007. She is followed by the [facility] cardiology service. She has had no history [...] There is no (more content not included)... [facility] 02-03-2024 Note [facility] Subjective Sylvia Herrera is a 78 y.o. year old female patient being seen for follow up [facility]. She was seen as inpatient consult by [...] Alcohol use: Not Currently Drug use: [facility]: Sylvia is seen [...] in 2007. She is followed by the [facility] cardiology service. She has had no history [...] the prior echocardiographi (more content not included)... [facility] 11-12-2023 Note [facility] Subjective Sylvia Herrera is a [...] in 2007. She is followed by the [facility] cardiology service. She has had no history [...] Stress Testing (1 (more content not included)... [facility] 10-28-2023 [facility] 08-07-2023 Note [facility] Subjective Sylvia Herrera is a [...] in 2007. She is followed by the [facility] cardiology service. She has had no history [...] scan. [address] (more content not included)... [facility] 04-08-2023 Hospital Discharge instructions Patient Education [...] improvement. Follow these instructions at home: Take iyac-psz-cjypoyu and prescription medicines only as told by [...] provider. Document Revised: 05/29/2022 Document Reviewed: 05/29/2022 [employer] Patient Education 2022 [employer]. 04/08/2023 08:56:02 Nonspecific Chest Pain, Adult Nonspecific [...] Follow these instructions at home: Medicines Take ddin-uiv-cesyjbx and prescription medicines only as told by [...] provider. Document Revised: 02/01/2022 Document Reviewed: 02/01/2022 [employer] Patient Education 2022 [employer] Follow Up Care 04/07/2023 21:19:10 With:SCOT ROGERS Address: [facility] [place] [address] [phone] Business (1) When:Within 3 Day(s) [facility] 04-07-2023 Evaluation + Plan note Extrac [...] Troponin 9 Hr. XR Chest Single View [facility]09-01-2022 Miscellaneous Notes* Telephone Encounter - Linden Weems - 08/02/2022 1:41 PM EDT Patient had labs drawn 08/02/22, uploaded to scanned docs. [facility] Miscellaneous Notes* Telephone Encounter - Sho [...] another team. Sho Crowley APRN, CNP Pager: [phone] July 05, 2022 10:42 AM Post Heart Transplant Nurse Practitioner documented in [facility] encounterR[facility]08-[facility]-2022 Miscellaneous Notes* Telephone Encounter - Linden Weems - 07/03/2022 12:59 PM EDT Patient had labs drawn 07/03/22, uploaded to scanned docs. documented in this encounterR[facility]06-07-2022 Miscellaneous Notes* Addendum Note - Loida [...] uploaded to scanned docs. Linden Weems Administrative Vehicle Maintenance Supervisor documented in this encounterR[facility]05-24-2022 Miscellaneous Notes* Telephone Encounter - Linden Weems - 04/24/2022 1:31 PM EDT Patient left message that she had labs drawn today. Linden Weems Administrative Vehicle Maintenance Supervisor Post Heart Transplant J3-4 documented in this encounterR[facility]05-11-2022 NoteHNO ID: [id number] Author: Loida Mathias APRN.CNP Service: ? Author [...] reports she can no longer travel to [place]. She does not have a ride, she has no family or friends to lean on. She has made an appt with a local [employer]. She will ask him if there are any transplant doctors or centers near her and potentially need to transfer her care. She will keep us updated. Loida Mathias APRN.CNP April 12, 2022 2:25 [facility]05-11-2022 History of Present illness Narrative* Loida [...] reports she can no longer travel to [place]. Shedoes not have a ride, she has no family or friends to lean on. She has made an appt with a local [employer]. She will ask him if there are any transplant doctors or centers near her and potentiallyneed to transfer her care. She will keep us updated. Loida Mathias APRN.CNP April 12, 2022 2:25 PM documented in this encounterR[facility]11-08-2021 NoteHNO ID: [id number] Author: Loida Mathias APRN.CNP Service: ? Author [...] Loida Mathias APRN.CNP October 09, 2021 4:10 [facility]11-02-2021 NoteHNO ID: [id number] Author: Nicolette Rice MD Service: ? Author Type: Physician Type: Progress Notes Filed: 10/03/2021 4:12 PM Note Text: Heart, Vascular AND Thoracic [facility] Department of Cardiovascular Medicine TELEPHONE VISIT PROGRESS [...] in ~6 months. Will see a local graduate research assistant at the end of the month. Data Reviewed: No new labs Assessment: She is doing well clinically and her BP is controlled. ? Plan: 1. She was instructed to continue the current medical program. 2. RTC per post-transplant protocol. Total Time Spent: 21-30 minutes Nicolette Rice, [facility]12-14-2017 History of Past illness Narrative* Problem Noted [...] of this encounter (statuses as of 04/05/2022) [facility] of Past illness Narrative* Problem [...] of this encounter (statuses as of 04/06/2022) [facility] History of Past illness Narrative* Problem Noted Date Resolved Date Pain 11/14/2017 09/02/2019 Delirium 12/03/2014 09/02/2019 Consolidation lung 12/03/2014 09/02/2019 Diarrhea 11/29/2014 09/02/2019 Pneumonia 11/29/2014 09/02/2019 DRWE (acute kidney injury) 05/06/20142013 Overview: Resolved Orthostasis [...] of this encounter (statuses as of 04/12/2022) [facility] of Past illness Narrative* Problem [...] of this encounter (statuses as of 04/24/2022) [facility] of Past illness Narrative* Problem [...] of this encounter (statuses as of 05/08/2022) [facility] of [facility] illness Narrative* Problem [...] of this encounter (statuses as of 07/03/2022) [facility] of [facility] illness Narrative* Problem [...] of this encounter (statuses as of 07/05/2022) [facility] Narrative* Problem [...] of this encounter (statuses as of 08/02/2022) [facility] of Past illness Narrative* Problem [...] of this encounter (statuses as of 09/11/2022) [facility] Future Appointments Appointment Date:08/01/2022 01:50:00 PM Scheduled Provider: Location:[facility] Appointment Type:Surgery FT Diagnostic Tests Pending * CMV Antibody IgM 07/16/22 Future Scheduled Tests Laboratory* Fecal WBC Lactoferrin 07/12/22 * Giardia lamblia, Direct Detection EIA 07/12/22 * O & P Exam, Routine 07/12/22 * Clostridium difficile by PCR 07/12/22 * Enteric Panel by PCR 07/12/22 [facility] transplanted (HCC) Heart replaced by transplant documented [facility] encounter [facility] [place] [facility] Diagnosis Heart replaced by transplant (HCC)- Primary Heart replaced by transplant [facility] [place] [facility] Diagnosis Heart replaced by transplant (HCC)- Primary Heart replaced by transplant Heart transplanted (HCC) Heart replaced by transplant [facility] [place] [facility]* Diagnosis Heart transplanted (HCC) Heart replaced by transplant [facility] [place] [facility]* Diagnosis Heart transplanted (HCC) Heart replaced by transplant documented in this encounter [facility] [place] noteNo assessment information availableKn[facility] Work Phone: Hospital course Narrative No data available for this section [facility] No data available for this section [facility] No data available for this section [facility] Advance Directives No Advanced Directives Records FoundDocuments on File Type Date Recorded 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 Advance Directive(s) 11/14/2017 5:44 AM Advance Directive(s) 01/02/2012 12:00 AM Advance Directive(s) 01/17/2007 12:00 AM Documents on File Type Date Recorded 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 Advance Directive(s) 01/02/2012 Advance Directive(s) [...] or prosecute any alcohol or drug abuse patient.[facility] HospitalIn the event this information is protected by the Federal Confidentiality of Alcohol and Drug Abuse Patient Records regulations: The Federal rules restrict any use of the information to criminally investigate or prosecute any alcohol or drug abuse patient.[facility] HospitalIn the event this information is protected by the Federal Confidentiality of Alcohol and Drug Abuse Patient Records regulations: The Federal rules restrict any use of the information to criminally investigate or prosecute any alcohol or drug abuse patient.[facility] HospitalIn the event this information is protected by the Federal Confidentiality of Alcohol and Drug Abuse Patient Records regulations: The Federal rules restrict any use of the information to criminally investigate or prosecute any alcohol or drug abuse patient.[facility] HospitalIn the event this information is protected by the Federal Confidentiality of Alcohol and Drug Abuse Patient Records regulations: The Federal rules restrict any use of the information to criminally investigate or prosecute any alcohol or drug abuse patient.[facility] HospitalIn the event this information is protected by the Federal Confidentiality of Alcohol and Drug Abuse Patient Records regulations: The Federal rules restrict any use of the information to criminally investigate or prosecute any alcohol or drug abuse patient.[facility] HospitalIn the event this information is protected by the Federal Confidentiality of Alcohol and Drug Abuse Patient Records regulations: The Federal rules restrict any use of the information to criminally investigate or prosecute any alcohol or drug abuse patient.[facility] HospitalIn the event this information is protected by the Federal Confidentiality of Alcohol and Drug Abuse Patient Records regulations: The Federal rules restrict any use of the information to criminally investigate or prosecute any alcohol or drug abuse patient.[facility] HospitalIn the event this information is protected by the Federal Confidentiality of Alcohol and Drug Abuse Patient Records regulations: The Federal rules restrict any use of the information to criminally investigate or prosecute any alcohol or drug abuse patient.[facility] Reason for Visit (unrecogniz ed section and content) Reason Comments Rx Refills Reason Comments Heart Transplant Follow Up Labs Reason Comments Heart Transplant Follow Up Reason Comments Heart Transplant Follow Up labs Reason Comments Heart Transplant Follow Up Lab Meeting Reason Comments Refill Request Care Teams (unrecognized sec tion and content) 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 Start Date End Date Tao Rooney MD [address] [phone] PCP - General Family Practice 05/13/19 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 Start Date End Date Tao Rooney MD [address] [phone] PCP - General Family Practice 05/13/19 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 Start Date End Date Tao Rooney MD [address] [phone] PCP - General Family Practice 05/13/19 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 Start Date End Date Tao Rooney MD [address] [phone] PCP - General Family Practice 05/13/19 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 Start Date End Date Tao Rooney MD [address] [phone] PCP - General Family Practice 05/13/19 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 Start Date End Date Tao Rooney MD [address] [place] [address] PCP - General Family Medicine 05/13/19 Team Status: Inactive Member Role Status Dates NON STAFF Attending Provider Active Start: Padma chavis 2023 End: June 18, 2024 INFORMATION SOURCE (unrecogn ized section and content) DATE CREATED AUTHOR 09/01/2022 [facility] DATE CREATED AUTHOR AUTHOR'S ORGANIZ ATION 03/09/2023 [facility] DATE CREATED AUTHOR AUTHOR'S ORGANIZ ATION 04/08/2023 [facility] DATE CREATED AUTHOR AUTHOR'S ORGANIZ ATION 07/12/2024 [facility] DATE CREATED AUTHOR AUTHOR'S ORGANIZ ATION 07/23/2024 [facility] Goals (unrecognized section and content) Goals may [...] BE BASED ON THE PRIMARY CLINICAL RECORDS. [employer] provides no warranty or guarantee of the accuracy or completeness of information in this document.
--- NOTE | 2024-08-02 16:36 | ECG_ITS ---
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
--- NOTE | 2024-08-02 16:36 | XR_ITS ---
The [address] [address] Patient Name: SYLVIA HANNA MRN: [id number] date: 1945 Sex: F Assigned Patient Location: ER Current Patient Location: ER Accession/Order Number: [id number] Exam Date: 08/02/2024 16:40 Report Date: 08/02/2024 17:19 At the request of: JOSE ADEN Procedure: XR chest 1V XR chest 1V CLINICAL: Weakness COMPARISON: 06/17/2024 TECHNIQUE: Single AP view of the chest. FINDINGS: Heart size is within normal limits for technique. No regional airspace consolidation, effusion or evidence of pneumothorax. Pleural-based densities at the left lung base are suggestive of atelectasis or scarring, similar to prior. Osseous structures appear intact. 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 XR/XR chest 1V IMPRESSION: No acute cardiac or pulmonary findings. Electronically authenticated by: JAZLYN PETER Date: 08/02/2024 17:19
--- NOTE | 2024-08-02 16:49 | ED.GENADUL1 ---
HPI HPI - General Adult General Chief complaint: Dizziness Stated complaint: LIGHTHEADEDNESS Time Seen by Provider: 08/02/24 16:35 Source: patient Mode of arrival: walk-in History of Present Illness HPI narrative: 78-year-old female here with fatigability. She says she has had ongoing diarrhea for 4 months. She indicates that she has had stool cultures done that were negative for C. difficile or any other pathogen to her knowledge. She has a local primary care doctor she sees on a regular basis. She has had colonoscopy in the past it has been normal. She is known to have pancreatic insufficiency. She has not had any fresh blood in the stool. She says occasionally she vomits. She says she is losing some weight despite taking protein milkshakes. She is status post cardiac transplant 15 years ago but has done remarkably well. Not infrequently she states that she does become dehydrated. She has not on any r water pills. She is not running a fever at home. She has had influenza in the past. She denies any chest pain or shortness of breath she just has fatigability and she think she is dehydrated. She complains some chronic dizziness describes it as the room spinning. She takes as needed use of meclizine. Related Data Home Medications ?Medication ?Instructions ?Recorded ?Confirmed aspirin 81 mg tablet,delayed 81 mg PO DAILY 06/06/23 06/17/24 release [id number] 3 cap PO TID 06/06/23 06/17/24 36,000-114,000-180,000 unit capsule,delay rel (Creon) omega-3 fatty acids-fish oil 360 1 cap PO DAILY 06/06/23 06/17/24 mg-1,200 mg capsule (Fish Oil) pramipexole 0.5 mg tablet 0.5 mg PO DAILY 06/06/23 06/17/24 simvastatin 20 mg tablet 20 mg PO DAILY 06/06/23 06/17/24 tacrolimus 0.5 mg capsule, 1 mg PO BID 06/06/23 06/18/24 immediate-release levothyroxine 112 mcg tablet 112 mcg PO QDAY 06/07/23 06/17/24 mycophenolate mofetil 250 mg 500 mg PO BID 12/31/23 06/17/24 capsule citalopram 20 mg tablet 20 mg PO DAILY 06/17/24 06/17/24 [id number] See Rx Instructions PO TID 06/18/24 06/18/24 36,000-114,000-180,000 unit capsule,delay rel (Creon) Previous Rx's ?Medication ?Instructions ?Recorded carvedilol 12.5 mg tablet 12.5 mg PO BID #60 tabs 01/01/24 magnesium oxide 400 mg (241.3 mg 400 mg PO BID #60 tabs 01/01/24 magnesium) tablet cefdinir 300 mg capsule 600 mg (2 x 300 mg) PO DAILY #20 06/18/24 caps Allergies Allergy/AdvReac Type Severity Reaction Status Date / Time promethazine [From Phenergan] AdvReac Severe Confusion Verified 06/17/24 21:28 ciprofloxacin [From Cipro] AdvReac Mild HIVES Verified 06/17/24 21:28 Opioid HPI Opioid Management Most Recent Opioid Data: Last Pain Scale 5 06/18/24 01:27 Last Pain Intensity 2 12/31/23 13:45 Last ORT Total Score 1 06/18/24 00:23 Last ORT Risk Category Low Risk 06/18/24 00:23 PFSH PFS Medical History (Updated 08/02/24 @ 19:07 by Cristhian Snyder MD) Head injury ?S09.90XA - Unspecified injury of head, initial encounter (ICD-10) Syncope ?R55 - Syncope and collapse (ICD-10) Depression ?F32.A - Depression, unspecified (ICD-10) Syncope ?R55 - Syncope and collapse (ICD-10) Acute kidney injury ?N17.9 - Acute kidney failure, unspecified (ICD-10) Gastroenteritis ?K52.9 - Noninfective gastroenteritis and colitis, unspecified (ICD-10) Heart transplant recipient ?Z94.1 - Heart transplant status (ICD-10) Heart transplant recipient ?Z94.1 - Heart transplant status (ICD-10) Surgical History (Updated 06/18/24 @ 00:55 by Toña Márquez RN) History of heart transplant ?Z94.1 - Heart transplant status (ICD-10) History of cholecystectomy ?Z90.49 - Acquired absence of other specified parts of digestive tract (ICD-10) History of ureteroscopy ?Z98.890 - Other specified postprocedural states (ICD-10) Social History (Updated 06/18/24 @ 00:33 by Toña Márquez RN) Within the past year, how often did you have a drink containing alcohol: never Score interpretation: A score less than 3 is consistent with normal alcohol consumption. Smoking status: Never smoker Non-prescribed substance use: denies use Highest level of school completed/degree received: high school graduate Are you now , , , , never or living with a partner: In a typical week, how many times do you talk on the telephone with family, friends, or neighbors: 3 or more times per week How often do you get together with friends or relatives: 3 or more times per week How often do you attend buddhism or baptist services: 4 or more times per year Do you belong to any clubs or organizations such as buddhism groups unions, [employer] or athletic groups, or school groups: no Total score: 3 Score interpretation: A score of greater than or equal to 2 indicates the lowest level of social isolation. Little interest or pleasure in doing things: several days Feeling down, depressed, or hopeless: several days Feel stressed/tense/nervous/anxious/difficulty sleeping: not at all Life stressors: recent of family or friend Do you think of yourself as: straight/heterosexual Gender Identity: female Exam Narrative Exam Narrative: She is awake alert does not appear critically ill. Some of her symptoms are chronic and ongoing. She does have some decreased skin turgor consistent with fluid loss. However her vital's are she has no respiratory distress and her pulse oximetry is normal. Her head and neck are atraumatic and her cognitive function is normal with no altered mental status or confusion. She does not have any respiratory distress cough or congestion. Examination of the abdomen shows no acute findings there is no guarding rebound rigidity or peritoneal findings. There is no tenderness of McBurney's point. Her surgical incisions from her heart transplant were noted and are normal. Her extremities have normal perfusion with no cyanosis or clamminess. Constitutional Vital Signs, click to edit/add: Last Vital Signs Temp 98.2 F 08/02/24 15:49 Pulse 79 08/02/24 15:49 Resp 16 08/02/24 15:49 BP 158/71 H 08/02/24 15:49 Pulse Ox 99 08/02/24 15:49 O2 Del Method Room Air 08/02/24 15:49 Course Vital Signs Vital signs: Vital Signs Temperature 98.2 F 08/02/24 15:49 Pulse Rate 79 08/02/24 15:49 Respiratory Rate 16 08/02/24 15:49 Blood Pressure 158/71 H 08/02/24 15:49 Pulse Oximetry 99 08/02/24 15:49 Oxygen Delivery Method Room Air 08/02/24 15:49 Temperature 98.2 F 08/02/24 15:49 Pulse Rate 79 08/02/24 15:49 Respiratory Rate 16 08/02/24 15:49 Blood Pressure 158/71 H 08/02/24 15:49 Pulse Oximetry 99 08/02/24 15:49 Oxygen Delivery Method Room Air 08/02/24 15:49 Medical Decision Making MDM Narrative Medical decision making narrative: Patient's laboratory testing is consistent with a urinary tract infection. She has chronic pancreatic insufficiency, her lipase is up and there is no baseline for that. Her COVID testing is negative. Her chest x-ray is negative and her cardiac workup is also negative. I believe she did benefit from a liter of saline. She will be placed on antibiotics. She is scheduled to see her primary doctor there this week . [facility] Labs: Lab Results 08/02/24 08/02/24 Range/Units 17:00 17:02 WBC 6.4 (4.0-11.0) 10^3/uL RBC 3.81 L (4.20-5.40) 10^6/uL Hgb 11.1 L (12.0-16.0) g/dL Hct 35.6 L (36.0-48.0) % MCV 93.4 (81.0-99.0) fL MCH 29.1 (26.7-34.0) pg MCHC 31.2 (29.9-35.2) g/dL RDW 12.9 (11.0-15.0) % Plt Count 204 (150-450) 10^3/uL MPV 10.4 (9.5-13.5) fL Neut % (Auto) 74.7 (43.0-75.0) % Lymph % (Auto) 13.0 L (20.5-60.0) % [place] % (Auto) 10.6 (1.7-12.0) % Eos % (Auto) 1.1 (0.9-7.0) % Baso % (Auto) 0.3 (0.2-2.0) % Neut # (Auto) 4.8 (1.4-6.5) 10^3/uL Lymph # (Auto) 0.8 L (1.2-3.8) 10^3/uL [place] # (Auto) 0.7 (0.3-0.8) 10^3/uL Eos # (Auto) 0.1 (0.0-0.7) 10^3/uL Baso # (Auto) 0.0 (0.0-0.1) 10^3/uL Abs Immat Gran (auto) 0.02 (0.00-0.03) 10^3/uL Imm/Tot Granulo (auto) 0.3 (0.0-0.5) % Sodium 135 L (136-145) mmol/L Potassium 4.0 (3.5-5.1) mmol/L Chloride 101 (98-107) mmol/L Carbon Dioxide 20.4 L (21.0-32.0) mmol/L Anion Gap 17.6 BUN 30.0 H (7.0-18.0) mg/dL Creatinine 2.20 H (0.55-1.02) mg/dL Est GFR ( Amer) 26 L (>=60) Est GFR (Non-Af Amer) 22 L (>=60) BUN/Creatinine Ratio 13.6 Glucose 123 H (74-106) mg/dL Lactate 0.8 (0.4-2.0) mmol/L Calcium 8.6 (8.5-10.1) mg/dL Total Bilirubin 0.7 (0.2-1.0) mg/dL AST 24 (15-37) U/L ALT 31 (14-59) U/L Alkaline Phosphatase 222 H (46-116) U/L Troponin I High Sens 5.6 (4.0-51.3) pg/mL Total Protein 6.4 (6.4-8.2) g/dL Albumin 3.7 (3.4-5.0) g/dL Globulin 2.7 g/dL Albumin/Globulin Ratio 1.4 TSH 1.916 (0.358-3.740) uIU/mL SARS-CoV-2 Ag (CV2AG) Negative (NEGATIVE) Discharge Plan Discharge Stand Alone Forms: Work/School Release, Portal Instructions Chief Complaint: Dizziness Clinical Impression: Acute UTI Patient Disposition: Home, Self-Care Time of Disposition Decision: 19:07 Prescriptions / Home Meds: No Action levothyroxine 112 mcg tablet 112 mcg PO QDAY pramipexole 0.5 mg tablet 0.5 mg PO DAILY aspirin 81 mg tablet,delayed release (DR/EC) 81 mg PO DAILY tacrolimus 0.5 mg capsule 1 mg PO BID Rx Instructions: 1 MG capsule by mouth AM and PM simvastatin 20 mg tablet 20 mg PO DAILY Creon 36,000-114,000- 180,000 unit capsule,delayed release(DR/EC) 3 cap PO TID Rx Instructions: administer with meals and/or snacks omega-3 fatty acids-fish oil [Fish Oil] 360-1,200 mg capsule 1 cap PO DAILY mycophenolate mofetil 250 mg capsule 500 mg PO BID carvedilol 12.5 mg Tablet 12.5 mg PO BID Qty: 60 11RF magnesium oxide 400 mg (241.3 mg magnesium) Tablet 400 mg PO BID Qty: 60 11RF citalopram 20 mg tablet 20 mg PO DAILY Creon 36,000-114,000- 180,000 unit capsule,delayed release(DR/EC) See Rx Instructions PO TID Patient Comments: Take 3 capsules by mouth three times a day Rx Instructions: 3 capsules orally three times a day; administer with meals and/or snacks cefdinir 300 mg capsule 600 mg PO DAILY Qty: 20 0RF Print Language: Rw[place] Additional Instructions: Beth, keisha Islas this week. Referrals: Vijay Davis MD [Primary Care Provider] - 1 week
[2024-08-02] MEDS: 0.9 % SODIUM CHLORIDE 1,000 ML 999 ML IV (17:03)
[2024-08-02 17:14] LABS: Basophils Percent Auto 0.3 % (0.2-2.0); Eosinophils Absolute Auto 0.1 10^3/uL (0.0-0.7); Eosinophils Percent Auto 1.1 % (0.9-7.0); Hematocrit 35.6 % (36.0-48.0); Hemoglobin 11.1 g/dL (12.0-16.0); Immature Granulocytes Abs Auto 0.02 10^3/uL (0.00-0.03); Immature Granulocytes Pct Auto 0.3 % (0.0-0.5); Lymphocytes Absolute Auto 0.8 10^3/uL (1.2-3.8); Mean Corpuscular HGB Conc 31.2 g/dL (29.9-35.2); Mean Corpuscular Hemoglobin 29.1 pg (26.7-34.0); Mean Corpuscular Volume 93.4 fL (81.0-99.0); Mean Platelet Volume 10.4 fL (9.5-13.5); Monocytes Absolute Auto 0.7 10^3/uL (0.3-0.8); Monocytes Percent Auto 10.6 % (1.7-12.0); Neutrophils Absolute Auto 4.8 10^3/uL (1.4-6.5); Neutrophils Percent Auto 74.7 % (43.0-75.0); Platelet Count 204 10^3/uL (150-450); Red Blood Count 3.81 10^6/uL (4.20-5.40); Red Cell Distribution Width 12.9 % (11.0-15.0); White Blood Count 6.4 10^3/uL (4.0-11.0)
[2024-08-02 17:27] LABS: Alanine Aminotransferase 31 U/L (14-59); Albumin Globulin Ratio 1.4; Albumin Level 3.7 g/dL (3.4-5.0); Alkaline Phosphatase 222 U/L (46-116); Anion Gap 17.6; Aspartate Amino Transferase 24 U/L (15-37); BUN Creatinine Ratio 13.6; Bilirubin Total 0.7 mg/dL (0.2-1.0); Calcium 8.6 mg/dL (8.5-10.1); Carbon Dioxide 20.4 mmol/L (21.0-32.0); Chloride 101 mmol/L (98-107); Estimated GFR (African America 26 (>=60); Estimated GFR (Non-African Ame 22 (>=60); Globulin 2.7 g/dL; Glucose 123 mg/dL (74-106); Sodium 135 mmol/L (136-145); Total Protein 6.4 g/dL (6.4-8.2)
[2024-08-02 17:35] LABS: Thyroid Stimulating Hormone 1.916 uIU/mL (0.358-3.740); Troponin I High Sensitivity 5.6 pg/mL (4.0-51.3)
[2024-08-02 17:37] LABS: Internal Control Within Normal Limits; SARS-CoV-2 Ag NEGATIVE (NEGATIVE)
[2024-08-02 17:38] LABS: Lactate/Lactic Acid 0.8 mmol/L (0.4-2.0)
[2024-08-02 18:19] LABS: Bilirubin Urine NEGATIVE (NEGATIVE); Blood Urine TRACE-I (NEGATIVE); Clarity Urine CLEAR (CLEAR); Color Urine LT. YELLOW (YELLOW); Glucose Urine UA NEGATIVE (NEGATIVE); Ketones Urine NEGATIVE (NEGATIVE); Leukocyte Esterase Urine MODERATE (NEGATIVE); Nitrite Urine POSITIVE (NEGATIVE); Protein Urine NEGATIVE (NEG/TRACE); Urobilinogen Urine 0.2 EU/dL (0.2-1.0)
[2024-08-02 18:22] LABS: Urine Microscopic Indicated YES
[2024-08-02 18:49] LABS: Bacteria Urine LARGE #/HPF (NONE SEEN); Cast Seen? NONE SEEN #/LPF (NONE SEEN); Crystals Seen? None Seen #/HPF (None Seen); Mucus Urine NONE SEEN (NONE SEEN); RBC Urine 0-2 #/HPF (0-2); Squamous Epithelial Cell Urine RARE #/LPF (NONE/RARE); Transitional Epi Cells Urine RARE #/LPF (NONE SEEN)
[2024-08-02 18:50] LABS: Urine Culture Indicated YES
[2024-08-02] MEDS: CIPROFLOXACIN HCL 500 MG TABLET PO (19:18)
== END 2024-08-02 19:47 | disposition home or self-care (01) ==
PROVIDERS: Emergency Provider Emergency Medicine Emergency Medical Services; PCP Family Medicine
DX: N39.0 Urinary tract infection, site not specified (principal); R19.7 Diarrhea, unspecified; Z94.1 Heart transplant status; K86.89 Other specified diseases of pancreas
CPT/HCPCS: 36415; 71045; 80053; 81001; 83605; 83690; 84443; 84484; 85025; 87086; 87150; 87186; 87811; 93005; 96360; 99285

== ENCOUNTER 2024-08-10 14:13 | Outpatient (OUT) | payer MEDICARE, SELFPAY ==
[2024-08-10 14:48] LABS: Bilirubin Urine NEGATIVE (NEGATIVE); Blood Urine NEGATIVE (NEGATIVE); Clarity Urine CLEAR (CLEAR); Color Urine YELLOW (YELLOW); Glucose Urine UA NEGATIVE (NEGATIVE); Ketones Urine TRACE mg/dL (NEGATIVE); Leukocyte Esterase Urine SMALL (NEGATIVE); Nitrite Urine NEGATIVE (NEGATIVE); Protein Urine 30 mg/dL (NEG/TRACE); Specific Gravity Urine 1.025 (1.005-1.025); Urobilinogen Urine 0.2 EU/dL (0.2-1.0); pH Urine 5.5 (5.0-9.0)
[2024-08-10 14:54] LABS: Bacteria Urine SMALL #/HPF (NONE SEEN); Mucus Urine NONE SEEN (NONE SEEN); RBC Urine NONE SEEN #/HPF (0-2); Squamous Epithelial Cell Urine FEW #/LPF (NONE/RARE)
[2024-08-10 14:55] LABS: Urine Culture Indicated ALREADY ORDERED
== END 2024-08-10 14:14 | disposition home or self-care (01) ==
LOC: LAB 14:14
PROVIDERS: PCP Family Medicine; Visit Provider Nurse Practitioner Family
DX: R74.8 Abnormal levels of other serum enzymes (principal); N39.0 Urinary tract infection, site not specified
CPT/HCPCS: 36415; 81001; 83690; 87086

== ENCOUNTER 2024-09-05 08:45 | Outpatient (OUT) | payer MEDICARE, SELFPAY ==
--- OUTSIDE RECORDS SUMMARY | 2024-09-05 08:49 | XMS_ITS | CCD ---
Author Organization [facility] ion [facility] Care Team Providers Care [employer] Photographer Name Role Phone Tao Rooney MD Primary Care Provider [phone] SCOT ROGERS Primary Care Physician [phone] Tao Rooney MD Primary Care Provider [phone] NICOLETTE RICE Attending UnavailARELIS Rivera Referring Unavailable TAO ROONEY Primary Care Unavailable Tao Rooney MD Primary Care Provider [phone] TAO HEBERT Primary Care Unavailable [...] Consulting Unavailable AMY Sanchez, NANCY Consulting Unavailable CAMREON NELSON Consulting Unavaila karen Sanchez, DR BURGER [...] Unavailable HOY ., DR BURGER Attending Unavailable KIMMSWICK, DR JAZLYN Marcelino Consulting Unavailable SUE, SCOT [...] INOPHEN] Drug Allergy 05-18-[address] [facility] Work Phone: (11 sources) Promethazine; Translations: [PROMETHAZINE HCL] Drug Allergy 10-11-20 05 Other: See Comments [facility] (3 sources) Levamisole; Translations: [Phenergan] Drug Allergy 04-07-20 13 [facility] Repository (1 source) Morphine Drug Allergy [facility] Rep[facility] (1 source) No Known Medication Allergies; Translations: [No Known Medication Allergies] Propensity to adverse reactions (disorder) [facility] Repository (2 sources) Promethazine; Translations: [promethazine] Drug Allergy 08-12-20 22 Loss of consciousness (finding) [facility] Medications Current Medications Medication Drug Class(es) [...] 04-08-2023 Episodic Other aftercare (1 source) Other oysterman (current) drug therapy; Translations: [OTH MANAGER RISK CURRENT DRUG THERAPY] Onset: 02-18-2023 Episodic Other [...] Care Facility (current) use of aspirin; Translations: [MANAGER RISK CURRENT USE OF ASPIRIN] Onset: 08-08-2022 Episodic [...] mail for her to have done at [facility] 1 week prior to seeing Dr. Daly for follow up on 09/14/2024. She verbalized understanding. [facility] 36on 07-21-2024 36 Regarding tacrolimus level drawn on 07/07/2024: MD Kaela Smith MA Did she have the echo? Her tacrolimus level is slightly high. I want a repeat in 2 months. *Dr. Daly, her echo was performed on 07/13/2024 and is scanned into media operator. Will you review this and then I will call Sylvia. Thanks. Normal [facility] Office Visiton 07-01-2024 Follow-up visit [id number] Sylvia Herrera 1945 F Date Provider Department Center 07/01/2024 ANISHA JACOBS JULIAN [facility] Family History Family history unknown: Yes Level of Service:84989 [place] OFFICE/OUTPATIENT ESTABLISHED MOD MDM 30 MIN Normal [facility] Activated partial thrombopla stin time (aPTT) in platelet poor plasma by coagulation aOrdered By: NON STAFF on 06-18-2024 aPTT Coag (PPP) [Time] 31.8 s 25.1-36.5 [facility] Comment on above: A hematocrit value g reater than 55% may lead to inaccurate results in coagulation testing. Patients having hematocrit values >55% require a special collection tube for coagulation studies. Please contact the laboratory at [phone] for redraw instructions. INR in Platelet poor plasma by Coagulation assayOrdered By: NON STAFF on 06-18-2024 INR Coag (PPP) [Relative time] 1.3 {INR} [facility] Comment on above: INR Therapeutic Rang [...] Performed By: #### P TT, PT #### [facility] [address] [place] [address] Partial Thromboplastin Timeo n 07-18-2024 aPTT Coag (Bld) [Time] 31.8 s Normal 25.1-36.5 [facility] Comment on above: Result Comment: A he matocrit value greater than 55% may lead to inaccurate results in coagulation testing. Patients having hematocrit values >55% require a special collection tube for coagulation studies. Please contact the laboratory at [phone] for redraw instructions. PERFORMED BY: [facility] [address] [place] [address] PATHOLOGIST HAT CUTTER ANDREIA ARRINGTON M.D. Performed By: #### P TT, PT #### [facility] [address] [place] [id number] [facility] Prothrombin time (PT)Ordered By: NON STAFF on 06-18-2024 PT Coag (PPP) [Time] 14.4 s High 9.0-12.9 [facility] Comment on above: A hematocrit value g reater than 55% may lead to inaccurate results in coagulation testing. Patients having hematocrit values >55% require a special collection tube for coagulation studies. Please contact the laboratory at [phone] for redraw instructions. Result Comment: A he matocrit value greater than 55% may lead to inaccurate results in coagulation testing. Patients having hematocrit values >55% require a special collection tube for coagulation studies. Please contact the laboratory at [phone] for redraw instructions. Performed By: #### P TT, PT #### [facility] [address] [place] [id number] [facility] 36on 04-06-2024 36 I [...] labs as ordered at last visit. Normal [facility] Telephoneon 04-06-2024 Telephone [id number] Sylvia Herrera 1945 F Date Provider Department Center 04/06/2024 ANISHA JACOBS JULIAN Hernandez Family History Family history unknown: Yes [facility] Orders Onlyon 03-18-2024 Orders Only [id number] Sylvia Herrera 1945 Provider Department Center 03/18/2024 Roman4-MITZY ISLAS GUS Hernandez Family History Family history unknown: Yes [facility] Office Visiton 02-03-2024 Follow-up visit [id number] Sylvia Herrera Erin 1945 Provider Department Center 02/03/2024 ANISHA JACOBS JULIAN Hernandez Family History Family history unknown: Yes Level of Service:91199 [place] OFFICE/OUTPATIENT ESTABLISHED MOD MDM 30 MIN [facility] Office Visiton 11-12-2023 Follow-up visit [id number] Sylvia Herrera Erin 1945 Provider Department Center 11/12/2023 ANISHA JACOBS JULIAN Hernandez Family History Family history unknown: Yes Level of Service:34977 [place] OFFICE/OUTPATIENT ESTABLISHED MOD MDM 30-39 MIN [facility] 36on 10-26-2023 36 Her tacrolimus level from 10/16/2023 was 1.4. still very low. I believe she is currently taking tacrolimus (Prograf) 0.5 mg bid. I want her to increase to 1 mg bid and obtain another trough level in 2-3 weeks. [facility] Telephoneon 10-26-2023 Telephone [id number] Sylvia Herrera Erin 1945 Provider Department Center 10/26/2023 ANISHA JACOBS JULIAN Hernandez Family History Family history unknown: Yes [facility] Orders Onlyon 09-30-2023 Orders Only [id number] Sylvia Herrera Erin 1945 Provider Department Center 09/30/2023 Paresh8-KAELA TURNER JULIAN Hernandez Family History Family history unknown: Yes [facility] 36on 08-15-2023 36 Her Tacrolimus troug h level (taken on 08/06/2023, reported 08/14/2023) was low at 1.4. She is currently taking tacrolimus 0.5 mg once a day. Please have her increase it to 0.5 mg twice a day and have a repeat Tacrolimus trough level in 2 weeks. Her target level is around 5-10 ng/ml. Normal [facility] Telephoneon 08-15-2023 Telephone [id number] SharonSylvia 1945 F Date Provider Department Center 08/15/2023 ANISHA JACOBS Family History Family history unknown: Yes Normal [facility] Office Visiton 08-07-2023 Follow-up visit [id number] SharonSylvia 1945 F Date Provider Department Center 08/07/2023 ANISHA JACOBS Family History Family history unknown: Yes Level of Service:39144 [place] OFFICE/OUTPATIENT ESTABLISHED MOD MDM 30-39 MIN Reason for Visit and Comments: Follow-up [375490] - 6 mo f/u no stress test or tacrolimus result as of 08/06 - does she plan on having stress test? Normal [facility] BMPon 04-08-2023 Creatinine [Mass/Vol] 1.3 mg/dL Normal 0.5-1.3 [facility] Comment on above: Performed By: #### 1 [id number], [id number], [id number] ####[facility] [address] [place] [address] Urea nitrogen [Mass/Vol] 36 mg/dL High 5-21 [facility] Comment on above: Performed By: #### 1 [id number], [id number], [id number] ####[facility] [address] [place] [address] Urea nitrogen/Creatinine [Mass ratio] 28 No Units High 10-20 [facility] Comment on above: Performed By: #### 1 [id number], [id number], [id number] ####[facility] [address] [place] [address] Anion gap [Moles/Vol] 11 mmol/L Normal 6-16 [facility] Comment on above: Performed By: #### 1 [id number], 3758334, [id number] ####[facility] [address] [address] Calcium [Mass/Vol] 8.6 mg/dL Low 8.9-11.1 [facility] Comment on above: Performed By: #### 1 [id number], [id number], [id number] ####[facility] [address] [place] [address] Chloride [Moles/Vol] 99 mmol/L Low 101-111 [facility] Comment on above: Performed By: #### 1 [id number], 4995859, [id number] ####[facility] [address] [facility] [place] [address] CO2 [Moles/Vol] 25 mmol/L Normal 21-31 [facility] Comment on above: Performed By: #### 1 [id number], 8779452, [id number] ####[facility] [address] [facility] [place] [address] Glucose [Mass/Vol] 124 mg/dL Normal 55-199 [facility] Comment on above: Result Comment: If t his glucose result represents a fasting glucose, interpretation should refer to the following reference range: 55-99 mg/dL Performed By: #### 1 [id number], 3283849, [id number] ####[facility] [address] [facility] [place] [address] Potassium [Moles/Vol] 4.1 mmol/L Normal 3.5-5.3 [facility] Comment on above: Performed By: #### 1 5355925, 1495102, [id number] ####[facility] [address] [facility] [place] [address] Sodium [Moles/Vol] 131 mmol/L Low 135-145 [facility] Comment on above: Performed By: #### 1 [id number], 9507655, [id number] ####[facility] [address] [place] [address] CHEMISTRYOrdered By: SYSTEM SYSTEM on 04-08-2023 Anion gap [Moles/Vol] 11 mmol/L Normal 6 - 16 mEq/L [facility] Calcium [Mass/Vol] 8.6 mg/dL Low 8.9 - 11. 1 mg/dL [facility] Chloride [Moles/Vol] 99 mmol/L Low 101 - 1 11 mmol/L [facility] CO2 [Moles/Vol] 25 mmol/L Normal 21 - 31 mmol/L [facility] [place] Remisol Creatinine [Mass/Vol] 1.3 mg/dL Normal 0.5 - 1.3 mg/dL [facility] [place] Remisol GFR/1.73 sq M.predicted among non-blacks MDRD (S/P/Bld) [Vol rate/Area] 42 mL/min/1.73 m2 Low >=59mL/min/ 1.73 m2 [facility] [place] Chem S Glucose [Mass/Vol] 124 mg/dL Normal 55 - 199 mg/dL [facility] Potassium [Moles/Vol] 4.1 mmol/L Normal 3.5 - 5.3 mmol/L [facility] [place] Remisol Sodium [Moles/Vol] 131 mmol/L Low 135 - 145 mmol/L [facility] [place] Remisol Troponin I.cardiac [Mass/Vol] 11.10 pg/mL Normal 10.10 - 27.10 pg/mL [facility] [place] Remisol Urea nitrogen [Mass/Vol] 36 mg/dL High 5 - 21 mg/dL [facility] [place] Remisol Urea nitrogen/Creatinine [Mass ratio] 28 mg/mg High 10 - 20 [facility] Remisol Troponin I.cardiac [Mass/Vol] 9.70 pg/mL Low 10.10 - 27.10 pg/mL [facility] [place] Remisol Consent for Treatmenton Consent for Treatment [id number]#1.00CD:12 7 Normal [facility] Discharge Instructionson Discharge Instructions [id number]#[id number]:127 Normal [facility] ED Clinical Summaryon 2022 ED Clinical Summary (Inserted Image. Tram ble to display) [address] [address] ED Clinical Summary Person Information Name: SYLVIA HERRERA Herb/[facility] Age: 77 Years : 1945 Sex: Female Language: Syrian PCP: SCOT ROGERS CNP Marital Status: Single [...] 04/08/2023 08:56:01 04/08/2023 08:56:01 04/08/2023 08:56:01 ADDRESS: [address] [place] [address] [id number] PHYS DOC NOTES: MEDICAL INFORMATION: Prescriptions Given: [...] With: Address: When: SCOT ROGERS [address] [place] [address] [phone] Business (1) In 3 days DIAGNOSIS: Chest pain; Hyponatremia Normal [facility] ED Note-Physicianon 04-08-20 ED Note-Physician Basic Information [...] and Complexity of Problems Differential Diagnosis: [] [facility] Data External documents reviewed: N/A My [...] 6 Hr. (more content not included)... Normal [facility] Comment on above: Result Comment: Elec tronically [...] gland problems. ? Metabolic conditions, such as Lincoln's disease or syndrome of inappropriate antidiuresis (SIAD). [...] Follow these instructions at home: ? Take klhc-epf-beqvjlt and prescription medicines only as told by [...] provider. Document Revised: 05/29/2022 Document Reviewed: 05/29/2022 [employer] Patient Education ? 2022 [employer] Pulmonary Medicine Nonspecific Chest Pain, Adult [...] health care (more content not included)... Normal [facility] ED Patient Summaryon 023 ED Patient Summary (Inserted Image. Tram ble to display) [place] [id number] Patient Discharge Instructions Person Information Name: SYLVIA HERRERA Age: 77 Years Arrival Date: 04/07/2023 21:18:46 Discharge Diagnosis: Chest pain; Hyponatremia Primary Care Physician: SCOT ROGERS CNP Provider Information Primary Provider: Richard Ca DO [employer] Engineer:None The exam and treatment you received in the Emergency Department were for an urgent problem and are not intended as complete care. It is important that you follow up with a doctor, nurse practitioner, or physician?s assistant professor of communication for ongoing care. If your symptoms become [...] When: SCOT ROGERS [address] [place] [address] [phone] Business (1) In 3 days In the event that this physician does not participate in your insurance network, please consult with your insurance company to find a nearby participating provider. Patient Education Materials: Hyponatremia; Nonspecific Chest Pain, Adult A MESSAGE TO ALL PATIENTS REGARDING OPIOIDS PRESCRIPTION OPIOIDS: WHAT YOU NEED TO KNOW Prescription opioids can be used to help relieve pluxpcbm-tq-wjgocg pain and are often prescribed following a [...] struggling with addiction, tell your health child day care teacher and ask for guidance or call [facility] National Helpline at 9-053-434-AAGD. v Source: [place] Departmen (more content not included)... Normal [facility] EMS Documentationon 04-08-20 EMS Documentation Please click on link to see report [id number] 9ODYps8IaUDg4BRmlZWQ6HnOhR QovSCBb TMG0SVRyUBaiFo5NCKL0FwP6Jq 5AhL5wPXFwsrFhHMKRJ88fTPhp NpD5Ij5IEQM4GDs3Tq5+ICAg ICAgICAgICAgICAgICAgICAgIC AgICAgICAgICAgICAgICAgICAg ICAgICAgICAgICAgICAgICAg ICAgICAgICAgICAgICAgICAgIC VSNhTdVA4ksz1MWQr0wcWyNWg2 VGS1QSleVAPnNMCrDNXyHFAr XQByUI4MWbSrEGJhRCF0QJpfIH NrFTCqaa5STMUbUYMoCNX6WYTr MDAwMCBuDQowMDAwMDAxODM3 RYXpKVNvNO6LXjKeHSNpSBI9He shPZXeGCLfcp1LFEDfQFDuVaXi OCAwMDAwMCBuDQowMDAwMDAy XekzYQTdNQJvXD7RKpOsVPSiEZ LsMWOwIEJrGNPxha9KDNLiWTUn CgF6AjTkNQOrTWTbCFhkNYAr ELAxPDIrTASrGBWqYB2ILzRyAD MbPNL8QTfzHSAcGEBdkz0HNOGr ISSmGgt0EUNhLGKnYDDkCBpu TUCqNXUqHtX0OIToOMXwRQ4JWz NfQTXcOVE2IPGfJAKwYPTspo7P CEHjJCWfTFS5JSCiBXTzJOEi PFqqWCItNGN6AjEoGCXcTJMpSU 3MDcZoDOQoICV4OswjCIIjECMt sx0CPXKjKUWgZLu6FILtDCQc YXPiRWjvWOUwHXZ6FbS9IILzCX VqQE3KBsPvKFPiLUE1JdntZRAz XNKrxi5JNGDaOZWuGTncHITj IUSbHSJhFInmXPPnMAD0ZWT8PN TbXEObXL2WKaSrNNAoNCI4Dekq IAZlIZBegg4WURRwJFNfYzs0 BkVuQHOyQYOdCVblBQLwWBX6BJ I1FAJyVCJiMT9UWjNiHQLjYRjp GMRaYFPrZKZhii7RJLEuYJGn OTkyMiAwMDAwMCBuDQowMDAwMD V6PYD8AIYdNZMfTR3RKzMlFEsm CRHXMwd8Rf5HPUWmFIDOYILX Y1ZyLCIUKooWVOE1APO4LGq4EW QnAAgrSeN9Xno9UmHFDJD3Ypc1 RZbNXWV5NLc6WLROO2L0WHfP NTZDRTA+OVjdIGUyjhG4DhP0St bxWn5ogUQ5ALOoHjjtY4y5YHNo JvqnV581doSlEDhGAEwJRjcI GgAsQfJ6gYJEVXBAB5U2Y07gV2 3rMO8CMZtfA3t2EinXHMN5DLeD sTmAUjFkW45mEWmcKIGlS9Hv FrisjMxpHPX1U1NqtFO8K1ccv6 1lWUSJWUzCr5rrNYB9Y43ORydY CsuLawONA6m4rEBCoVC5Pjud G5tvMxHtQMHCPFLxXbYyUtfON7 CPH7tBSj7jHc6+ICAgICAgICAg ICAgICAgICAgICAgICAgICAg ICAgICAgICAgICAgICAgICAgIC AgICAgICAgICAgICAgICAgICAg ICAgICAgICAgICAgICAgICAg ICAgICAgICAgICAgICAgICAgIC AgICAgICAgICAgICAgICAgICAg ICAgICAgICAgICAgICAgICAg ICAgICAgICAgICAgICAgICAgIC AgICAgICAgICAgICAgICAgICAg ICAgICAgICAgICAgICAgICAg ICAgICAgICAgICAgICAgICAgIC AgICAgICAgICAgICAgICAgICAg ICAgICAgICAgICAgICAgICAg ICAgICAgICAgICAgICAgICAgIC AgICAgICAgICAgICAgICAgICAg ICAgICAgICAgICAgICAgICAg ICAgICAgICAgICAgICAgICAgIC AgICAgICAgICAgICAgICAgICAg ICAgICAgICAgICAgICAgICAg ICAgICAgICAgICAgICAgICAgIC AgICAgICAgICAgICAgICAgICAg ICAgICAgICAgICAgICAgICAg SEWXIpN3KID7fSQiRe1TWN6WXI ZCP5AQLt8VVGNsQH0nts1RJNaD J64foSVtHSFoTCJaQKRXZi5H jDZdJVR7dN1zHYw5PDMkOshrZk c7QP1BB065cYgzpzDhPMJgNVMF Dd3EHTyjAC0zZPPbDGBaJz1b BKqfZPGlYULjEnUaEUGXE6U0mQ QnX9JxhJPcl7rVBn1SNcEmPD3l az1ZWUr3PYGon6TdCPe0BZmv IzhpuOXeYB7SjLA4WMGdD45gRT kaJCDaQ7ZqFNEjPHwkQtT7Kyn+ Fu8Na9NpLFNvVZu1mNCzFIXj YGDLYFBgYLjCAyLhQAEKUxiwAr Q9EvVeCOAu0AWjOGSl16SJNgFf YbNsKDyxBkRsjVSV8RqdGqCJ CMhq3GaTJoUAYdIAxyD4XCgtAG KNMchYSBq7AvUqHbeK9DoRizMr 0I7BGADGTzeRNnNqNXX1pwZx jA1DQU7sc8PwTGaEZngnJWPiIe xZDwv9Of1Fp115ZG18twSrYqCy KWBTZGzaMYBpuOCYo0okBiZf KGY8SRBaAftgQKftOWAdZA72QV CjYIJBWz3SCCIyaLIwTROtLQdO G9uNCxzuA4UyDDtWX8kxZvL2 IDggMCBSCj4+Cj4+Da3WhSFzMF 1ZSOxtNa1+YFodefGpNggFUx9U IYYnIH2iqk8GUJfNG4PEp6yh HpXlMAR0BWEeFayiGUtrXepcbU RgPR3RbMM7IICrQ62zUAgmIRHh R7AwBXy0Cr7UMUSaoVFwXKNx XTeAD8mMMsrkY4PrSZxPQ4lhAj G9LZY1MMVlCnf+Pgo+BvgtS2Wa uSpvOXBmOs2oiRbvJCpuXEKu MH6qjbTvtGk+Og2Gh0HbVUWyMW s1lUOL9BTp0FOaVEMoVDL5NHDi xmSLAMbb9FnUiIFbHhFboSVw H3pqBRGi95xNDZDsCjmVh4bdLp Oc2NhQGO+XF9OGhcJiLiBlol8F KAppvkSywPDwVI1NXxMaPF4c ib5FNIm7QMCpz2FxZVe9XEaqRj 8cN81fjo8coJkfN4CcZTc+Pg0K KT3fx4GpQLpOBuNySUYgt7Xf PBw0HJcqTr5rD46fqv5voRzfF3 EgMQovTEMgMAovTEogMAovTFcg PEjyVSgePRvqK2GgxVJ4FOed B9EjDCi+Lf2BSI6zy9NoFOtUJg LlCNAfk6LjUGs4OIsqSy2cD74n cq0itKueY6FiIN3yVzVoUhya TEMgMAovTEogMAovTFcgMQovTU fjSAxoJ7SlgTN7GKttM5UhGA6r MzMzMwo+Zl1SLQ3hk2KoCYqC JnSjYXWxz2CcZUf8KVaoVy0wA3 9moa7blCthK1PiPD5dBAQtMMb+ Hd2EUH8zm5LoFDeTOcOfJWLc r2QaSIt6EQqqBu9aB01shr1dvY kjX5DdHS2tNJG5TFinHWEdIChr TEogMAovTFcgMQovTUwgNAov E5HpfOP4CNfoI4SbHV7eKXW2WL o+Iu7HYB4zz9JxZClQCyY9ECWe q1EsKFk4TFldLOK9wib4DYmp Krq7TNJfFIHmJK86OLUxYZn3Du 0GR2RfyQSwlu6SvDUcSRQRK5Gn HQOhpweuEBvDR7UmuB0eT1Fy D8YnG9VpaxeoBRKEKxqcJ14mju GcXFjkVVF3PHYnHHP0OS1IY6U2 mSAqGTJgeQV1VIv3luIoEUkl WcGeL1Cnp43xFRsUM2DtBNzfUd u5MuQpTlm1VhTeBir0H20SO0Ts FEmeEzh4PlSfSoq7LrZzJie5 N68VQ2NkeOThcwDpTQNhAItwXy QqK9Phw62HoBFjMEPXP78xECx+ RpobK1ngBKsqB7A8hFKiYce+ LjbfLTsnDNHyJYN4yHXcpiv+Pg 2ELC1gq5NjDDzNUnJ9ZDZai4Of KCv9WLroMQB9jgc4GMzsMxu9 BLWjMUTyLY50QBRfKJf6Cy8DB8 UcmIYtbx8AgAZaGRVLH8ZvVMGx gxyoAHpFY6NmrK9tF0KaY6Sx F0MkjxcdDIDVIjhkX07yauAsBQ a1QNH8KuN0CVK6Pn28Zp5RQ0E8 vNHcOCGvhZL7ZSh2etYkNGrg PmYrF0Igo98qNUdFB7NogA0qyw YdXG44EXeyOH7bSGvuFVjlLNKy Wr2VvtGkHNQtNdLaPTZbZEUf Hy0OzK1xhBcddlH1lGNsLgpnSa ArQ3Lwf84jCZq6OGztVnTgPuIb LUS2LYPrMPE7JPJlDTY1ZWtl PyOiVoMzEDO0RQCvELC3QKUaPM Q7XFkyQV2fSZrpOYbhMLOyHt2X jN8tcMhhrdF7rUIqEhscDxUg Cj4+Gfw5Gh9KSTLnDQ82AksaIN 81HzrwWB59YqvqEt6JPSJrYU93 VdDjRS50BuFiUW49RhBsHn2K d65gzR2xCtSmCO0IL8P0sdU3mW 3aDYnmGTCeTr7JEDODFe7rLt1+ Mi2WeQOyuT1eGJbpSLXeEq2+ Um5GtQXbJC5IPQC9EMXhPu0+DQ ndllItCyhLAw9UZBQdQAUcGpuS Bme1Bw1QSIXkGy0pwKTvSLbB IW4CX2TeP79pQPuTX0Zdx6Pxey TjmyMRa809znOeWLtcBINLLQze XN6oq8LilqfmI8fwIW43eZN9 ZDaTH5X6DvR3iWRiI6B5gOXbTz 7Gc7YzjAKeFGNoLFkdNNATVl4X hMKwHA5Cp376Xd7+DQplbmRv RejZDc4NJPdyEOGiHwhWZkg5Cx 0EQVKmJk3nfTVqYYrHRY1OW8Lq M36wXVgPA8XHTGI2e8TlqSbz Mg9kHMvBF93bXMEfpG4nQEqSKS NrcBm4wNvBV4FrB6aniCV6UBqF ZG9i (more content not included)... Normal [facility] EMS Documentation Please click on link to see report Normal [facility] Comment on above: Result Comment: Miss ing Attachment - attachment exceeds size limitation [id number] Can be viewed in source system EMS Documentation [id number]#[id number]:127 [facility] Monitor Recordon 04-08-2023 Monitor Record [id number]#[id number]:127 [facility] Progress Note-Nurseon 2022 Progress Note-Nurse Pt. requesting food, Dr. Ca aware. Pt. given food per verbal order from Dr. Ca. Normal [facility] Troponin 0 Hr.on 04-08-2023 Troponin I.cardiac [Mass/Vol] 9.20 pg/mL Low 10.10-27.10 [facility] Comment on above: Result Comment: The 95% CI (Confidence Interval) PPV (Positive Predictive Value) for myocardial infarction in females is 38 pg/mL, in males 51 pg/mL. The results should be used in conjunction with clinical conditions of myocardial infarction. (Access High Sensitivity Troponin I Instructions For Use, Kermit Tracy, July 2018) Performed By: #### 2 [id number], [id number], [id number], [id number], [id number], [id number] ####[facility] [address] [place] [address] Troponin 3 Hr.on 04-08-2023 Troponin I.cardiac [Mass/Vol] 9.70 pg/mL Low 10.10-27.10 [facility] Comment on above: Result Comment: The 95% CI (Confidence Interval) PPV (Positive Predictive Value) for myocardial infarction in females is 38 pg/mL, in males 51 pg/mL. The results should be used in conjunction with clinical conditions of myocardial infarction. (Access High Sensitivity Troponin I Instructions For Use, [employer], July 2018) Performed By: #### 1 [id number] ####[facility] [address] [place] [address] Troponin 6 Hr.on 04-08-2023 Troponin I.cardiac [Mass/Vol] 11.10 pg/mL Normal 10.10-27.10 [facility] Comment on above: Result Comment: The 95% CI (Confidence Interval) PPV (Positive Predictive Value) for myocardial infarction in females is 38 pg/mL, in males 51 pg/mL. The results should be used in conjunction with clinical conditions of myocardial infarction. ([employer] High Sensitivity Troponin I Instructions For Use, [employer], July 2018) Performed By: #### 1 [id number] ####[facility] [id number] [place] [address] XR Chest Single Viewon 04-08 XR Chest [...] mGy = na DAP = na Normal [facility] eGFRon 04-08-2023 GFR/1.73 sq M.predicted among non-blacks MDRD (S/P/Bld) [Vol rate/Area] 42 mL/min/1.73 m2 Low >=59 [facility] Comment on above: Order Comment: Order added by Discern Expert. Result Comment: [employer] Officer brennan kidney disease could be indicated at eGFR's of less than 60 mL/min/1.73m2. Kidney failure is indicated at less than 15 mL/min/1.73m2. Performed By: #### 1 [id number] ####[facility] [id number] [place] [address] Auto Diffon 04-07-2023 Basophils/100 WBC (Bld) 0.4 % Normal 0.0-2.0 [facility] Comment on above: Order Comment: Order Added by Discern Expert. Performed By: #### 2 [id number] ####[id number] [place] [address] Basophils/Leukocytes Auto (Bld) [Pure # fraction] 0.0 E9/L Normal 0.0-0.2 [facility] Comment on above: Order Comment: Order Added by Discern Expert. Performed By: #### 2 [id number], [id number], [id number] ####[id number] [place] [address] Eosinophils/100 WBC (Bld) 3.0 % Normal 0.0-8.0 [facility] Comment on above: Order Comment: Order Added by Discern Expert. Performed By: #### 2 [id number], [id number], [id number] ####[address] [address] Eosinophils/Leukocyt es Auto (Bld) [Pure # fraction] 0.2 E9/L Normal 0.0-0.5 [facility] Comment on above: Order Comment: Order Added by Discern Expert. Performed By: #### 2 129724, [id number], 2034727, 3582548, 27868553, 24246073 ####[address] [place] [address] Lymphocytes/100 WBC (Bld) 15.4 % Normal 14.0-50.0 [facility] Comment on above: Order Comment: Order Added by Discern Expert. Performed By: #### 2 125574, 99415563, 3014066, 7708620, 29559593, 83474483 ####[address] [address] Lymphocytes/Leukocyt es Auto (Bld) [Pure # fraction] 1.1 E9/L Normal 1.0-4.0 [facility] Comment on above: Order Comment: Order Added by Discern Expert. Performed By: #### 2 909855, 99507135, 5315326, 7230645, 42358397, 43692992 ####[address] [address] Monocytes/100 WBC (Bld) 12.8 % Normal 4.0-14.0 [facility] Comment on above: Order Comment: Order Added by Discern Expert. Performed By: #### 2 238045, 14451877, 1267596, 8798870, 35689620, 48111196 ####[address] [address] Monocytes/Leukocytes Auto (Bld) [Pure # fraction] 0.9 E9/L Normal 0.2-1.0 [facility] Comment on above: Order Comment: Order Added by Discern Expert. Performed By: #### 2 804186, 27345636, 1777243, 9915304, 31228447, 93523968 ####[address] [address] Neutrophils/100 WBC (Bld) 68.4 % Normal 36.0-75.0 [facility] Comment on above: Order Comment: Order Added by Discern Expert. Performed By: #### 2 024371, 18627172, 7907654, 0176127, 18154310, 61225265 ####[address] [address] Neutrophils/Leukocyt es Auto (Bld) [Pure # fraction] 5.0 E9/L Normal 2.0-7.5 [facility] Comment on above: Order Comment: Order Added by Discern Expert. Performed By: #### 2 716959, 88315338, 1706564, 1654988, 43817604, 13872978 ####[facility] [address] [place] [address] BMPon 04-07-2023 Creatinine [Mass/Vol] 1.5 mg/dL High 0.5-1.3 [facility] Comment on above: Performed By: #### 2 993917, 68352011, 0351762, 8331425, 55046145, 12751341 ####[facility] [address] [place] [address] Urea nitrogen [Mass/Vol] 40 mg/dL High 5-21 [facility] Comment on above: Performed By: #### 2 894627, 29751013, 8470726, 4369327, 03309247, 09843523 ####[facility] [address] [place] [address] Urea nitrogen/Creatinine [Mass ratio] 27 No Units High 10-20 [facility] Comment on above: Performed By: #### 2 188769, 24372505, 8909355, 8560229, 32426058, 80268804 ####[facility] [address] [place] [address] Anion gap [Moles/Vol] 11 mmol/L Normal 6-16 [facility] Comment on above: Performed By: #### 2 472385, 76377095, 4485390, 9242440, 88079720, 25463568 ####[facility] [address] [place] [address] Calcium [Mass/Vol] 8.6 mg/dL Low 8.9-11.1 [facility] Comment on above: Performed By: #### 2 870160, 88422636, 6440532, 6440328, 17875703, 87299505 ####[facility] [address] [place] [address] Chloride [Moles/Vol] 96 mmol/L Low 101-111 [facility] Comment on above: Performed By: #### 2 387606, 30980296, 0043720, 0688807, 82379765, 59225412 ####[facility] [address] [place] [address] CO2 [Moles/Vol] 24 mmol/L Normal 21-31 [facility] Comment on above: Performed By: #### 2 947089, 24719471, 9590117, 4479269, 60445927, 69557563 ####[facility] [address] [place] [address] Glucose [Mass/Vol] 139 mg/dL Normal 55-199 [facility] Comment on above: Result Comment: If t his glucose result represents a fasting glucose, interpretation should refer to the following reference range: 55-99 mg/dL Performed By: #### 2 048796, 58120581, 4405802, 2108003, 63850404, 89886853 ####[facility] [address] [place] [address] Potassium [Moles/Vol] 4.4 mmol/L Normal 3.5-5.3 [facility] Comment on above: Performed By: #### 2 894558, 91834795, 5829248, 7551106, 27095542, 10753826 ####[facility] [address] [place] [address] Sodium [Moles/Vol] 127 mmol/L Low 135-145 [facility] Comment on above: Performed By: #### 2 980711, 71439424, 8099242, 0846768, 13553769, 48226556 ####[facility] [address] [place] [address] CBC w/ Auto Diffon 3 Erythrocyte distribution width (RBC) [Ratio] 13.0 % Normal 10.9-14.2 [facility] Comment on above: Performed By: #### 2 352222, 48334507, 2777944, 9622194, 37651850, 27912194 ####[facility] [address] [place] [address] Hematocrit (Bld) [Volume fraction] 38.4 % Normal 34.0-46.0 [facility] Comment on above: Performed By: #### 2 108822, 44323724, 4716657, 3179573, 28430162, 64233145 ####[address] [address] Hemoglobin (Bld) [Mass/Vol] 12.6 g/dL Normal 12.0-16.0 [facility] Comment on above: Performed By: #### 2 700820, 93280001, 7357574, 3946733, 94580468, 49335472 ####[address] [address] MCH (RBC) [Entitic mass] 27.9 pg Normal 27.0-34.0 [facility] Comment on above: Performed By: #### 2 755051, 72137008, 0833814, 3618310, 70070046, 93322822 ####[address] [address] MCHC (RBC) [Mass/Vol] 32.7 g/dL Normal 31.4-36.0 [facility] Comment on above: Performed By: #### 2 160125, 44376993, 2549471, 1480870, 97634523, 71828438 ####[address] [address] MCV (RBC) [Entitic vol] 85.3 fL Normal 80.0-100.0 [facility] Comment on above: Performed By: #### 2 951837, 87462789, 4446559, 3828904, 16344143, 66780117 ####[facility] [address] [place] [address] Platelet mean volume (Bld) [Entitic vol] 7.3 fL Normal 6.4-10.8 [facility] Comment on above: Performed By: #### 2 307730, 41740755, 7376441, 2403756, 54717356, 61329342 ####[facility] [address] [place] [address] Platelets (Bld) [#/Vol] 167.0 E9/L Normal 150.0-500.0 [facility] Comment on above: Performed By: #### 2 326110, 25955034, 3197762, 4850824, 31484829, 57265050 ####[facility] [address] [place] [address] RBC (Bld) [#/Vol] 4.5 E12/L Normal 4.3-5.9 [facility] Comment on above: Performed By: #### 2 009997, 49793836, 4683099, 8545607, 65042232, 90655283 ####[facility] [address] [place] [address] WBC corrected for nucl RBC Auto (Bld) [#/Vol] 7.3 E9/L Normal 4.0-11.0 [facility] Comment on above: Performed By: #### 2 971507, 46431836, 8687545, 4559289, 05167117, 01151402 ####[facility] [address] [place] [address] CHEMISTRYOrdered By: SYSTEM SYSTEM on 04-07-2023 Anion [...] Coag (PPP) [Time] 27.1 second(s) Normal 25.1-36.5 [facility] Comment on above: Result Comment: Para meter [...] the same coagulation reagent and instrumentation as [facility] [place]. Currently there are no coagulation studies available worldwide for children to 14 days, and no normal ranges. Heparin therapeutic range (represented by Anti-Factor Xa activity of 0.2 - 0.4 U/mL) corresponds to PTT of 56.6 - 109.0 sec. Performed By: #### 2 342208, 64089205, 9377820, 4218602, 46637454, 09522769 ####[facility] [address] [place] [address] INR Coag (PPP) [Relative time] 1.2 {INR} Invalid Interpretation Code [facility] Comment on above: Result Comment: INR results are specifically intended to assess patients stabilized on long-term Anticoagulation therapy suggested INR?s ?Less Intensive Anticoagulation? 2.0 ? 3.0 Conventional Range 3.0 ? 4.5 Performed By: #### 2 794249, 52158465, 5714653, 5359951, 54560797, 44650996 ####[facility] [address] [place] [address] PT Coag (PPP) [Time] 12.9 second(s) High 9.4-12.5 [facility] Comment on above: Result Comment: 15 d [...] the same coagulation reagent and instrumentation as [facility] [place]. Currently there are no coagulation studies available worldwide for children to 14 days, and no normal ranges. Performed By: #### 2 593109, 35605192, 6316357, 7742282, 58242729, 23915928 ####[facility] [address] [place] [address] Pre-Arrival Noteon 3 Pre-Arrival Note Pre-Arrival Summary Name: , YAZMIN Current Date: 04/07/2023 21:19:11 EDT Gender: Female Date of : Age: 77 Pre-Arrival Type: EMS ETA: 04/07/2023 21:15:00 EDT Primary Care Physician: Presenting Problem: chest pain Pre-Arrival User: Natalia Fischer RN Referring Source: Location: Completion Date/Time: 04/07/2023 21:06:00 [facility] Emergency Department Pre-Hospital Report Form _ Vital Signs: Pre-Hospital Report: Treatment in Route: Response to Treatment: Misc. Issues: Normal [facility] eGFRon 04-07-2023 GFR/1.73 sq M.predicted among non-blacks MDRD (S/P/Bld) [Vol rate/Area] 35 mL/min/1.73 m2 Low >=59 [facility] Comment on above: Order Comment: Order added by Discern Expert. Result Comment: [employer] Business [employer]ing Officer brennan kidney disease could be indicated at eGFR's of less than 60 mL/min/1.73m2. Kidney failure is indicated at less than 15 mL/min/1.73m2. Performed By: #### 2 964869, 94816207, 3478631, 0034131, 48546340, 95643025 ####[facility] [address] [place] [address] INFLUENZA A AND B AGon 03-05 INFLUANEGH SEE BELOW Normal [facility] Comment on above: Result Comment: Nega tive for Flu A protein angiten. Infection due to Flu A cannot be ruled out. Flu A angiten in the sample may be below the detection limit of the test. Performed By: #### E RUR #### [facility] [address] [place] [address] Dr. Hardeep Rivera INFLUBNEGH SEE BELOW Normal [facility] Comment on above: Result Comment: Nega tive for Flu B protein antigen. Infection due to Flu B cannot be ruled out. Flu B antigen in the sample may be below the detection limit of the test. Performed By: #### E RUR #### [facility] [address] [place] [address] Dr. Hardeep Rivera INFLUENZA A AG Negative Normal NEGATIVE SEE COMMENT [facility] Comment on above: Performed By: #### E RUR #### [facility] [address] [place] [address] Dr. Hardeep Rivera INFLUENZA B AG Negative Normal NEGATIVE SEE COMMENT [facility] Comment on above: Performed By: #### E RUR #### [facility] [address] [place] [address] Dr. Hardeep Rivera SYMPTOMATIC COVID-19 ANTIGEN on [...] revoked sooner. Performed By: #### C IMANIS ####[facility] [address] [address]Dr. Hardeep Rivera SARS-CoV-2 (COVID-19) RNA ULICES+probe Ql (Unsp spec) Positive Abnormal NEGATIVE [facility] Comment on above: Performed By: #### C IMANIS ####[facility] [address] [address]DrLaura Rivera FK506 (TACROLIMUS) WHOLE BLO ODon 02-28-2023 Tacrolimus (FK506), Blood 5.8 ng/mL Normal 2.0-20.0 [facility] Comment on above: Result Comment: Trou gh (immediately following transplant) 15.0 . Trough (steady state, 2 weeks or more after transplant): 3.0 - 8.0 . Performed by LC-MS/MS technology. Performed By: #### F K506T ####[facility] [address] [address]Dr. Hardeep Rivera CBC AUTO DIFFon 02-14-2023 BASO # 0.0 103/ul Normal 0.0-0.1 [facility] Comment on above: Performed By: #### RANDALL OLSON #### [facility] [address] [place] [address] Dr. Hardeep Rivera Basophils/100 WBC (Bld) 0.5 % Normal 0.2-2.0 [facility] Comment on above: Performed By: #### RANDALL OLSON #### [facility] [address] [place] [address] Dr. Hardeep Rivera EO # 0.2 103/ul Normal 0.0-0.7 [facility] Comment on above: Performed By: #### RANDALL OLSON #### [facility] [address] [place] [address] Dr. Hardeep Rivera Eosinophils/100 WBC (Bld) 3.5 % Normal 0.9-7.0 [facility] Comment on above: Performed By: #### HARI OLSONRO #### [facility] [address] [place] [address] Dr. Hardeep Rivera Erythrocyte distribution width (RBC) [Ratio] 12.3 % Normal 11.0-15.0 [facility] Comment on above: Performed By: #### HARI OLSONRO #### [facility] [address] [place] [address] Dr. Hardeep Rivera Hematocrit (Bld) [Volume fraction] 38.7 % Normal 36.0-48.0 [facility] Comment on above: Performed By: #### HARI OLSONRO #### [facility] [address] [place] [address] Dr. Hardeep Rivera Hemoglobin (Bld) [Mass/Vol] 12.6 g/dL Normal 12.0-16.0 [facility] Comment on above: Performed By: #### HARI OLSONRO #### [facility] [address] [place] [address] Dr. Hardeep Rivera IG # 0.03 10e3/ul Normal 0.00-0.03 [facility] Comment on above: Performed By: #### HARI OLSONRO #### [facility] [address] [place] [address] Dr. Hardeep Rivera IG % 0.5 % Normal 0.0-0.5 [facility] Comment on above: Performed By: #### HARI OLSONRO #### [facility] [address] [place] [address] Dr. Hardeep Rivera LYMPH # 0.8 103/ul Critically low 1.2-3.8 [facility] Comment on above: Performed By: #### HARI OLSONRO #### [facility] [address] [place] [address] Dr. Hardeep Rivera Lymphocytes/100 WBC (Bld) 13.2 % Critically low 20.5-60.0 [facility] Comment on above: Performed By: #### HRAI OLSONRO #### [facility] [address] [place] [address] Dr. Hardeep Rivera MANUAL DIFF REQ NO Normal [facility] Comment on above: Performed By: #### Deedee PINON UMICRO #### [facility] [address] [place] [address] Dr. Hardeep Rivera MCH (RBC) [Entitic mass] 28.3 pg Normal 26.7-34.0 [facility] Comment on above: Performed By: #### Deedee PINON UMICRO #### [facility] [address] [place] [address] Dr. Hardeep Rivera MCHC (RBC) [Mass/Vol] 32.6 g/dL Normal 29.9-35.2 [facility] Comment on above: Performed By: #### Deedee PINON UMICRO #### [facility] [address] [place] [address] Dr. Hardeep Rivera MCV (RBC) [Entitic vol] 87.0 fL Normal 81.0-99.0 [facility] Comment on above: Performed By: #### Deedee PINON UMICRO #### [facility] [address] [place] [address] Dr. Hardeep Rivera MONO # 0.8 103/ul Normal 0.3-0.8 [facility] Comment on above: Performed By: #### Deedee PINON UMICRO #### [facility] [address] [place] [address] Dr. Hardeep Rivera Monocytes/100 WBC (Bld) 12.9 % Critically high 1.7-12.0 [facility] Comment on above: Performed By: #### Deedee PINON UMICRO #### [facility] [address] [place] [address] Dr. Hardeep Rivera NEUT # 4.4 103/ul Normal 1.4-6.5 [facility] Comment on above: Performed By: #### Deedee PINON UMICRO #### [facility] [address] [place] [address] Dr. Hardeep Rivera Neutrophils/100 WBC (Bld) 69.4 % Normal 43.0-75.0 [facility] Comment on above: Performed By: #### Deedee PINON, UMICRO #### [facility] [address] [address] [address] Hardeep Rivera Platelet mean volume (Bld) [Entitic vol] 9.0 fL Critically low 9.5-13.5 [facility] Comment on above: Performed By: #### Deedee PINON, UMICRO #### [facility] [address] [address] [address] Hardeep Rivera PLT 205 103/ul Normal 150-450 [facility] Comment on above: Performed By: #### Deedee PINON, UMICRO #### [facility] [address] [address] [address] Hardeep Rivera RBC 4.45 106/ul Normal 4.20-5.40 [facility] Comment on above: Performed By: #### Deedee PINON, UMICRO #### [facility] [address] [address] [address] Hardeep Rivera WBC 6.3 103/ul Normal 4.0-11.0 [facility] Comment on above: Performed By: #### Deedee PINON, UMICRO #### [facility] [address] HEAD WO CONon [...] CAMERON NELSON Date: 2023-02-14 15:46 Normal [facility] ER URINE PROFILEon 3 Bilirubin Ql (U) Negative Normal NEGATIVE [facility] Comment on above: Performed By: #### Deedee PINON UMICRO #### [facility] [address] [place] [address] Dr. Hardeep Rivera Clarity (U) CLEAR Normal CLEAR [facility] Comment on above: Performed By: #### Deedee PINON UMICRO #### [facility] [address] [place] [address] Dr. Hardeep Rivera Color (U) LT. YELLOW Normal YELLOW [facility] Comment on above: Performed By: #### Deedee PINON UMICRO #### [facility] [address] [place] [address] Dr. Hardeep Rivera ERUCHIDI A micrscopic examina tion will be performed if indicated. Normal [facility] Comment on above: Performed By: #### Deedee PINON UMICRO #### [facility] [address] [place] [address] Dr. Hardeep Rivera Glucose Ql (U) Negative Normal NEGATIVE [facility] Comment on above: Performed By: #### Deedee PINON UMICRO #### [facility] [address] [place] [address] Dr. Hardeep Rivera Hemoglobin Ql (U) TRACE-INTACT Abnormal NEGATIVE [facility] Comment on above: Performed By: #### Deedee PINON UMICRO #### [facility] [address] [place] [address] Dr. Hardeep Rivera Ketones Ql (U) Negative Normal NEGATIVE [facility] Comment on above: Performed By: #### Deedee PINON UMBENNETTRO #### [facility] [address] [place] [address] Dr. Hardeep Rivera LEUKOCYTES Negative Normal NEGATIVE [facility] Comment on above: Performed By: #### Deedee PINON UMICRO #### [facility] [address] [place] [address] Dr. Hardeep Rivera Nitrite Ql (U) Negative Normal NEGATIVE [facility] Comment on above: Performed By: #### Deedee PINON UMICRO #### [facility] [address] [place] [address] Dr. Hardeep Rivera pH (U) 7.0 [pH] Normal 5-9 [facility] Comment on above: Performed By: #### Deedee PINON UMICRO #### [facility] [address] [place] [address] Dr. Hardeep Rivera Protein (U) [Mass/Vol] 30 mg/dL Abnormal NEGATIVE/ TRACE [facility] Comment on above: Performed By: #### Deedee PINON UMICRO #### [facility] [address] [place] [address] Dr. Hardeep Rivera SPEC GRAVITY 1.010 Normal 1.005-<=1.0 25 [facility] Comment on above: Performed By: #### Deedee PINON UMICRO #### [facility] [address] [place] [address] Dr. Hardeep Rivera UR MICRO IND INDICATED Normal [facility] Comment on above: Performed By: #### Deedee PINON UMICRO #### [facility] [address] [place] [address] Dr. Hardeep Rivera Urobilinogen Qn (U) 0.2 {Kevon'U}/dL Normal 0.2 - 1. 0 [facility] Comment on above: Performed By: #### Deedee PINON UMICRO #### [facility] [address] [place] [address] Dr. Hardeep Rivera PROF 14(COMP METB)on 023 Albumin [Mass/Vol] 3.5 g/dL Normal 3.4-5.0 [facility] Comment on above: Performed By: #### H STROPN, CMP, TSH ####[facility] [address] [address]Dr. Hardeep Rivera Albumin/Globulin [Mass ratio] 1.2 {ratio} Normal [facility] Comment on above: Performed By: #### H TYLER CMP, TSH ####[facility] [address] [address]Dr. Preethiarabella Rivera ALP [Catalytic activity/Vol] 153 U/L Critically high 46-116 [facility] Comment on above: Performed By: #### H TYLER, CMP, TSH ####[facility] [address] [place] [address]Dr. Hardeep Rivera ALT [Catalytic activity/Vol] 21 U/L Normal 14-59 [facility] Comment on above: Performed By: #### H TYLER CMP, TSH ####[facility] [address] [place] [address]Dr. Hardeep Rivera Anion gap [Moles/Vol] 9.3 mmol/L Normal [facility] Comment on above: Performed By: #### H TYLER CMP, TSH ####[facility] [address] [place] [address]Dr. Hardeep Rivera AST [Catalytic activity/Vol] 23 U/L Normal 15-37 [facility] Comment on above: Performed By: #### H TYLER CMP, TSH ####[facility] [address] [place] [address]Dr. Hardeep Rivera Bilirubin [Mass/Vol] 0.6 mg/dL Normal 0.2-1.0 [facility] Comment on above: Performed By: #### H STRONATHANIEL, CMP, TSH ####[facility] [address] [place] [address]Dr. Hardeep Rivera Calcium [Mass/Vol] 8.4 mg/dL Critically low 8.5-10.1 [facility] Comment on above: Performed By: #### H STRONATHANIEL, CMP, TSH ####[facility] [address] [place], [place] [address]Dr. Hardeep Rivera Chloride [Moles/Vol] 96 mmol/L Critically low 98-107 [facility] Comment on above: Performed By: #### H STROPN, CMP, TSH ####[facility] [address] [place] [address]Dr. Hardeep Rivera CO2 [Moles/Vol] 29.3 mmol/L Normal 21.0-32.0 [facility] Comment on above: Performed By: #### H STROPN, CMP, TSH ####[facility] [address] [place] [address]Dr. Hardeep Rivera Creatinine [Mass/Vol] 1.16 mg/dL Critically high 0.55-1.02 [facility] Comment on above: Performed By: #### H STROPN, CMP, TSH ####[facility] [address] [place], [place] [address]Dr. Hardeep Rivera EGFR-AF ICELANDIC 55 mL/min/1.73m2 Critically low >=60 [facility] Comment on above: Performed By: #### H STROPN, CMP, TSH ####[facility] [address] [place] [address]Dr. Hardeep Rivera EGFR-NON AF ICELANDIC 45 mL/min/1.73m2 Critically low >=60 [facility] Comment on above: Performed By: #### H STROPN, CMP, TSH ####[facility] [address] [place], [place] [address]Dr. Hardeep Rivera Globulin (S) [Mass/Vol] 2.9 g/dL Normal [facility] [facility] Comment on above: Performed By: #### H STROPN, CMP, TSH ####[facility] [address] [place] [address]Dr. Hardeep Rivera Glucose [Mass/Vol] 105 mg/dL Normal 74-106 [facility] Comment on above: Performed By: #### H STROPN, CMP, TSH ####[facility] [address]xzy[address] [place] [address]Dr. Hardeep Rivera Potassium [Moles/Vol] 4.6 mmol/L Normal 3.5-5.1 [facility] Comment on above: Performed By: #### H STROPN, CMP, TSH ####[facility] Qtjfuwilsp[address] [place] [address]Dr. Hardeep Rivera Protein [Mass/Vol] 6.4 g/dL Normal 6.4-8.2 [facility] Comment on above: Performed By: #### H GLADIS SCOTT, TSH ####[facility] [address]uhw[address] [place] [address]Dr. Hardeep Rivera Sodium [Moles/Vol] 130 mmol/L Critically low 136-145 [facility] Comment on above: Performed By: #### H GLADIS SCOTT, TSH ####[facility] [address]acgyeyssd[address] [place] [address]Dr. Hardeep Rivera Urea nitrogen [Mass/Vol] 27.0 mg/dL Critically high 7.0-18.0 [facility] Comment on above: Performed By: #### H GLADIS SCOTT, TSH ####[facility] X[address] [place], [place] [address]Dr. Hardeep Rivera Urea nitrogen/Creatinine [Mass ratio] 23.3 mg/mg Normal [facility] Comment on above: Performed By: #### H GLADIS SCOTT, TSH ####[facility] [address]turk[address] [place] [address]Dr. Hardeep Rivera PROTIMEon 02-14-2023 INR Coag (PPP) [Relative time] 1.07 {INR} Normal [facility] Comment on above: Performed By: #### P T, PTT ####[facility] [address]qimidx[address] [place], [place] [address]Dr. Hardeep Rivera INR GUIDELINES SEE BELOW Normal [facility] Comment on above: Result Comment: EDMUND RED INR: 2.0 - 3.0 CONDITIONS NOT LISTED BELOW 2.5 - 3.5 FOR PROSTHETIC HEART VALVE REPLACEMENT 2.5 - 3.5 RECURRENT THROMBOSIS Performed By: #### P T, PTT ####[facility] Qdqdefhsev[address] [place], [place] [address]Dr. Hardeep Rivera PT Coag (PPP) [Time] 11.3 s Normal 9.0-11.6 [facility] Comment on above: Performed By: #### P T, PTT ####[facility] [address] [place] [id number]. Hardeep Rivera PTTon 02-14-2023 aPTT Coag (Bld) [Time] 29.1 s Normal 22.3-36.2 [facility] Comment on above: Performed By: #### P T, PTT ####[facility] [address]wor[address]cl[address] [place] [address]Dr. Hardeep Rivera TROPONIN, HIGH SENSITIVITYon 02-14-2023 HSTROP 10.4 pg/mL Normal 4.0-51.3 [facility] Comment on above: Result Comment: CUT- OFF POINTS HAVE BEEN ESTABLISHED BASED ON THE FOURTH UNIVERSAL DEFINITIONS OF MYOCARDIAL INFARCTION. THE UPPER REFERENCE LIMIT (URL) OF TROPONIN, DEFINED THE 99TH PERCENTILE OF cTnI DISTRIBUTION IN A REFERENCE POPULATION, HAS BEEN CONFIRMED THE DECISION THRESHOLD FOR MO DIAGNOSIS. Performed By: #### H TYLER CMP, TSH ####[facility] [address]uqv[address]se[address] [place] [address]Dr. Hardeep Rivera TSHon 02-14-2023 TSH 1.237 uIU/mL Normal 0.358-3.740 [facility] Comment on above: Performed By: #### H TYLER CMP, TSH ####[facility] Q[address]ve[address]ufl[address] [place] [address]Dr. Hardeep Rivera URINE MICROSCOPIC ONLYon BACTERIA NONE SEEN Normal NONE SEEN The [facility] Comment on above: Performed By: #### Deedee PINON UMICRO #### [facility] [address] [place] [address] Dr. Hardeep Rivera Bacteria identified Cx Nom (U) NOT INDICATED Normal [facility] Comment on above: Performed By: #### E RUR UMICRO #### [facility] [address] [place] [address] Dr. Hardeep Rivera CAST NONE SEEN Normal NONE SEEN [facility] Comment on above: Performed By: #### E RUR UMICRO #### [facility] [address] [place] [address] Dr. Hardeep Rivera Crystals LM Nom (Urine sed) NONE SEEN Normal NONE SEEN [facility] Comment on above: Performed By: #### E RUR, UMICRO #### [facility] [address] [address] [address] Hardeep Rivera Epithelial cells LM Ql (Urine sed) NONE SEEN Normal NONE SEEN /RARE [facility] Comment on above: Performed By: #### E RUR, UMICRO #### [facility] [address] [address] [address] Hardeep Rivera MUCOUS NONE SEEN Normal NONE SEEN [facility] Comment on above: Performed By: #### E RUR, UMICRO #### [facility] [address] [place] [address] Dr. Hardeep Rivera RBC 0-2 Normal 0-2 [facility] Comment on above: Performed By: #### E RUR, UMICRO #### [facility] [address] [place] [address] Dr. Hardeep Rivera WBC NONE SEEN Normal NONE SEEN [facility] Comment on above: Performed By: #### E RUR, UMICRO #### [facility] [address] [place] [address] Dr. Hardeep Rivera XR CHEST 1 Von [...] JAZLYN DUBOSE Date: 2023-02-14 15:50 Normal [facility] FK506 (TACROLIMUS) WHOLE BLO ODon 02-13-2023 Tacrolimus (FK506), Blood 1.4 ng/mL Critically low 2.0-20.0 [facility] Comment on above: Result Comment: Trou gh (immediately following transplant) 15.0 . Trough (steady state, 2 weeks or more after transplant): 3.0 - 8.0 . Performed by LC-MS/MS technology. Performed By: #### E RUR #### [facility] [address] [place] [address] Dr. Hardeep Rivera PROF 14(COMP METB)on 023 Albumin [Mass/Vol] 3.5 g/dL Normal 3.4-5.0 [facility] Comment on above: Performed By: #### C MP ####[facility] L[address]zuf[address] [place], [place] [address]Dr. Hardeep Rivera Albumin/Globulin [Mass ratio] 1.2 {ratio} Normal [facility] Comment on above: Performed By: #### C MP ####[facility] [address] [place], [place] [address]Dr. Hardeep Rivera ALP [Catalytic activity/Vol] 149 U/L Critically high 46-116 [facility] Comment on above: Performed By: #### C MP ####[facility] [address]rb[address]pc[address] [place], [place] [address]Dr. Hardeep Rivera ALT [Catalytic activity/Vol] 19 U/L Normal 14-59 [facility] Comment on above: Performed By: #### C MP ####[facility] Cex[address]int[address] [place], [place] [address]Dr. Hardeep Rivera Anion gap [Moles/Vol] 11.7 mmol/L Normal [facility] Comment on above: Performed By: #### C MP ####[facility] Qnuyptbqsr[address] [place], [place] [address]Dr. Hardeep Rivera AST [Catalytic activity/Vol] 27 U/L Normal 15-37 [facility] Comment on above: Performed By: #### C MP ####[facility] Pnefq[address] [place], [place] [address]Dr. Hardeep Rivera Bilirubin [Mass/Vol] 0.6 mg/dL Normal 0.2-1.0 [facility] Comment on above: Performed By: #### C MP ####[facility] Rccmarmzq[address] [place], [place] [address]Dr. Hardeep Rivera Calcium [Mass/Vol] 8.5 mg/dL Normal 8.5-10.1 [facility] Comment on above: Performed By: #### C MP ####[facility] Rebhiitnjx[address] [place], [place] [address]Dr. Hardeep Rivera Chloride [Moles/Vol] 96 mmol/L Critically low 98-107 [facility] Comment on above: Performed By: #### C MP ####[facility] Mwkeqroytf[address] [place] [address]Dr. Preethiarabella Miguel CO2 [Moles/Vol] 28.1 mmol/L Normal 21.0-32.0 [facility] Comment on above: Performed By: #### C MP ####[facility] [address]bvxpom[address] [place], [place] [address]Dr. Hardeep Rivera Creatinine [Mass/Vol] 1.24 mg/dL Critically high 0.55-1.02 [facility] Comment on above: Performed By: #### C MP ####[facility] Nctrykqcmw[address] [place], [place] [address]Dr. Hardeep Rivera EGFR-AF ICELANDIC 51 mL/min/1.73m2 Critically low >=60 [facility] Comment on above: Performed By: #### C MP ####[facility] Ngdeqzwmj[address] [place], [place] [address]Dr. Hardeep Rivera EGFR-NON AF ICELANDIC 42 mL/min/1.73m2 Critically low >=60 [facility] Comment on above: Performed By: #### C MP ####[facility] [address]wlb[address] [place], [place] [address]Dr. Hardeep Rivera Globulin (S) [Mass/Vol] 3.0 g/dL Normal [facility] Comment on above: Performed By: #### C MP ####[facility] Htzmahndeo[address] [place], [place] [address]DrLaura Rivera Glucose [Mass/Vol] 141 mg/dL Critically high 74-106 [facility] Comment on above: Performed By: #### C MP ####[facility] Fndgrpylyc[address] [place], [place] [address]Dr. Hardeep Rivera Potassium [Moles/Vol] 4.8 mmol/L Normal 3.5-5.1 [facility] Comment on above: Performed By: #### C MP ####[facility] Xgrurssyoe[address] [place], [place] [address]Dr. Hardeep Rivera Protein [Mass/Vol] 6.5 g/dL Normal 6.4-8.2 [facility] Comment on above: Performed By: #### C MP ####[facility] H[address]umxj[address] [place] [address]Dr. Hardeep Rivera Sodium [Moles/Vol] 131 mmol/L Critically low 136-145 [facility] Comment on above: Performed By: #### C MP ####[facility] [address]hsfe[address] [place] [address]Dr. Hardeep Rivera Urea nitrogen [Mass/Vol] 29.0 mg/dL Critically high 7.0-18.0 [facility] Comment on above: Performed By: #### C MP ####[facility] Fyvlswuchq[address] [place], [place] [address]Dr. Hardeep Rivera Urea nitrogen/Creatinine [Mass ratio] 23.4 mg/mg Normal [facility] Comment on above: Performed By: #### C MP ####[facility] Crfplwxeky[address] [place], [place] [address]Dr. Hardeep Rivera BNPon 01-09-2023 Natriuretic peptide B (Bld) [Mass/Vol] 336.0 pg/mL Normal <=1,800.0 [facility] Comment on above: Performed By: #### C MP, TSH, BNP, T7 ####[facility] R[address]wsedep[address] [place], [place] [address]Dr. Hardeep Rivera CBC AUTO DIFFon 01-09-2023 BASO # 0.0 103/ul Normal 0.0-0.1 [facility] Comment on above: Performed By: #### C BC #### [facility] [address] [place] [address] Dr. Hardeep Rivera Basophils/100 WBC (Bld) 0.4 % Normal 0.2-2.0 [facility] Comment on above: Performed By: #### C BC #### [facility] [address] [place] [address] Dr. Hardeep Rivera EO # 0.3 103/ul Normal 0.0-0.7 [facility] Comment on above: Performed By: #### C BC #### [facility] [address] [place] [address] Dr. Hardeep Rivera Eosinophils/100 WBC (Bld) 4.4 % Normal 0.9-7.0 [facility] Comment on above: Performed By: #### C BC #### [facility] [address] [place] [address] Dr. Hardeep Rivera Erythrocyte distribution width (RBC) [Ratio] 12.3 % Normal 11.0-15.0 [facility] Comment on above: Performed By: #### C BC #### [facility] [address] [place] [address] Dr. Hardeep Rivera Hematocrit (Bld) [Volume fraction] 43.3 % Normal 36.0-48.0 [facility] Comment on above: Performed By: #### C BC #### [facility] [address] [place] [address] Dr. Hardeep Rivera Hemoglobin (Bld) [Mass/Vol] 13.5 g/dL Normal 12.0-16.0 [facility] Comment on above: Performed By: #### C BC #### [facility] [address] [place] [address] Dr. Hardeep Rivera IG # 0.02 10e3/ul Normal 0.00-0.03 [facility] Comment on above: Performed By: #### C BC #### [facility] [address] [place] [address] Dr. Hardeep Rivera IG % 0.3 % Normal 0.0-0.5 [facility] Comment on above: Performed By: #### C BC #### [facility] [address] [place] [address] Dr. Hardeep Rivera LYMPH # 1.1 103/ul Critically low 1.2-3.8 [facility] Comment on above: Performed By: #### C BC #### [facility] [address] [place] [address] Dr. Hardeep Rivera Lymphocytes/100 WBC (Bld) 16.0 % Critically low 20.5-60.0 [facility] Comment on above: Performed By: #### C BC #### [facility] [address] [place] [address] Dr. Hardeep Rivera MANUAL DIFF REQ NO Normal [facility] Comment on above: Performed By: #### C BC #### [facility] [address] [place] [address] Dr. Hardeep Rivera MCH (RBC) [Entitic mass] 28.4 pg Normal 26.7-34.0 [facility] Comment on above: Performed By: #### C BC #### [facility] [address] [place] [address] Dr. Hardeep Rivera MCHC (RBC) [Mass/Vol] 31.2 g/dL Normal 29.9-35.2 [facility] Comment on above: Performed By: #### C BC #### [facility] [address] [place] [address] Dr. Hardeep Rivera MCV (RBC) [Entitic vol] 91.0 fL Normal 81.0-99.0 [facility] Comment on above: Performed By: #### C BC #### [facility] [address] [place] [address] Dr. Hardeep Rivera MONO # 1.0 103/ul Critically high 0.3-0.8 [facility] Comment on above: Performed By: #### C BC #### [facility] [address] [place] [address] Dr. Hardeep Rivera Monocytes/100 WBC (Bld) 14.7 % Critically high 1.7-12.0 [facility] Comment on above: Performed By: #### C BC #### [facility] [address] [place] [address] Dr. Hardeep Rivera NEUT # 4.4 103/ul Normal 1.4-6.5 [facility] Comment on above: Performed By: #### C BC #### [facility] [address] [place] [address] Dr. Hardeep Rivera Neutrophils/100 WBC (Bld) 64.2 % Normal 43.0-75.0 [facility] Comment on above: Performed By: #### C BC #### [facility] [address] [address] [address] Hardeep Rivera Platelet mean volume (Bld) [Entitic vol] 9.5 fL Normal 9.5-13.5 [facility] Comment on above: Performed By: #### C BC #### [facility] [address] [address] [address] Hardeep Rivera PLT 238 103/ul Normal 150-450 [facility] Comment on above: Performed By: #### C BC #### [facility] [address] [address] [address] Hardeep Rivera RBC 4.76 106/ul Normal 4.20-5.40 [facility] Comment on above: Performed By: #### C BC #### [facility] [address] [address] [address] Hardeep Rivera WBC 6.8 103/ul Normal 4.0-11.0 [facility] Comment on above: Performed By: #### C BC #### [facility] [address] [address] [address] Hardeep Rivera FREE THYROXINE INDEX T7on FTI 3.96 Normal 1.30-4.50 [facility] Comment on above: Performed By: #### C MP, TSH, BNP, T7 ####[facility] [address] [place], [place] [address]NfDr. Hardeep Rivera T3U 35.0 % Normal 30.0-39.0 [facility] Comment on above: Performed By: #### C MP, TSH, BNP, T7 ####[facility] Sw[address] [place], [place] [address]XuDr. Hardeep Rivera T4 [Mass/Vol] 11.30 ug/dL Normal 4.80-13.90 [facility] Comment on above: Performed By: #### C MP, TSH, BNP, T7 ####[facility] T[address] [place], [place] [address]PkDr. Hardeep Rivera PROF 14(COMP METB)on 023 Albumin [Mass/Vol] 3.9 g/dL Normal 3.4-5.0 [facility] Comment on above: Performed By: #### C MP, TSH, BNP, T7 ####[facility] [address] [place] [address]Dr. Hardeep Rivera Albumin/Globulin [Mass ratio] 1.2 {ratio} Normal [facility] Comment on above: Performed By: #### C MP, TSH, BNP, T7 ####[facility] [address] [place] [address]Dr. Hardeep Rivera ALP [Catalytic activity/Vol] 151 U/L Critically high 46-116 [facility] Comment on above: Performed By: #### C MP, TSH, BNP, T7 ####[facility] [address]pc[address] [place], [place] [address]Dr. Hardeep Rivera ALT [Catalytic activity/Vol] 30 U/L Normal 14-59 [facility] Comment on above: Performed By: #### C MP, TSH, BNP, T7 ####[facility] [address]gsxf[address]ql[address] [place], [place] [address]Dr. Hardeep Rivera Anion gap [Moles/Vol] 15.6 mmol/L Normal [facility] Comment on above: Performed By: #### C MP, TSH, BNP, T7 ####[facility] [address]ab[address] [place], [place] [address]Dr. Hardeep Rivera AST [Catalytic activity/Vol] 23 U/L Normal 15-37 [facility] Comment on above: Performed By: #### C MP, TSH, BNP, T7 ####[facility] [address]pc[address] [place], [place] [address]Dr. Hardeep Rivera Bilirubin [Mass/Vol] 0.7 mg/dL Normal 0.2-1.0 [facility] Comment on above: Performed By: #### C MP, TSH, BNP, T7 ####[facility] [address]ys[address] [place], [place] [address]Dr. Hardeep Rivera Calcium [Mass/Vol] 9.0 mg/dL Normal 8.5-10.1 [facility] Comment on above: Performed By: #### C MP, TSH, BNP, T7 ####[facility] [address] [place] [address]Dr. Hardeep Rivera Chloride [Moles/Vol] 97 mmol/L Critically low 98-107 [facility] Comment on above: Performed By: #### C MP, TSH, BNP, T7 ####[facility] [address] [place] [address]Dr. Hardeep Rivera CO2 [Moles/Vol] 26.1 mmol/L Normal 21.0-32.0 [facility] Comment on above: Performed By: #### C MP, TSH, BNP, T7 ####[facility] [address] [place] [address]Dr. Hardeep Rivera Creatinine [Mass/Vol] 1.78 mg/dL Critically high 0.55-1.02 [facility] Comment on above: Performed By: #### C MP, TSH, BNP, T7 ####[facility] [address] [place], [place] [address]Dr. Hardeep Miguel EGFR-AF ICELANDIC 33 mL/min/1.73m2 Critically low >=60 [facility] Comment on above: Performed By: #### C MP, TSH, BNP, T7 ####[facility] [address]xex[address] [place], [place] [address]Dr. Hardeep Miguel EGFR-NON AF ICELANDIC 28 mL/min/1.73m2 Critically low >=60 [facility] Comment on above: Performed By: #### C MP, TSH, BNP, T7 ####[facility] Embz[address] [place], [place] [address]Dr. Preethiarabella Rivera Globulin (S) [Mass/Vol] 3.3 g/dL Normal [facility] Comment on above: Performed By: #### C MP, TSH, BNP, T7 ####[facility] [address] [place], [place] [address]Dr. Preethiarabella Miguel Glucose [Mass/Vol] 127 mg/dL Critically high 74-106 [facility] Comment on above: Performed By: #### C MP, TSH, BNP, T7 ####[facility] [address] [place], [place] [address]Dr. Hardeep Rivera Potassium [Moles/Vol] 3.7 mmol/L Normal 3.5-5.1 [facility] Comment on above: Performed By: #### C MP, TSH, BNP, T7 ####[facility] [address] [place] [address]Dr. Hardeep Rivera Protein [Mass/Vol] 7.2 g/dL Normal 6.4-8.2 [facility] Comment on above: Performed By: #### C MP, TSH, BNP, T7 ####[facility] [address] [place] [address]Dr. Hardeep Rivera Sodium [Moles/Vol] 135 mmol/L Critically low 136-145 [facility] Comment on above: Performed By: #### C MP, TSH, BNP, T7 ####[facility] [address] [place] [address]Dr. Hardeep Rivera Urea nitrogen [Mass/Vol] 54.0 mg/dL Critically high 7.0-18.0 [facility] Comment on above: Performed By: #### C MP, TSH, BNP, T7 ####[facility] [address] [place] [address]Dr. Hardeep Rivera Urea nitrogen/Creatinine [Mass ratio] 30.3 mg/mg Normal [facility] Comment on above: Performed By: #### C MP, TSH, BNP, T7 ####[facility] [address] [place] [address]Dr. Hardeep Rivera TSHon 01-09-2023 TSH 1.097 uIU/mL Normal 0.358-3.740 [facility] Comment on above: Performed By: #### C MP, TSH, BNP, T7 ####[facility] [address] [place] [address]Dr. Hardeep Rivera ECHOCARDIO M/2D COMPLETEon 0 12-13-2022 ECHOCARDIO M/2D COMPLETE Patient: SYLVIA HERRERA Exam Date: 12/13/2022 : 1945 Gender:F Ordering : [facility] Admission #: [id number] Family : Order #: [id number] CLICK HERE TO VIEW EXAM ECHOCARDIOGRAM REPORT [...] Area (VTI): 2.23 cm2, 2.23 cm2 Deceleration [place]: 1.44 m/s2 Pressure Half-Time: 850.98 ms Peak [...] Nolan M.D. on 12/14/2022 at 13:49 Normal [facility] US ALAN DOP LEG BILon 023 [...] HAI FOSTER Date: 2022-12-13 10:51 Normal [facility] BNPon 12-11-2022 Natriuretic peptide B (Bld) [Mass/Vol] 457.0 pg/mL Normal <=1,800.0 [facility] Comment on above: Performed By: #### RANDALL OLSON #### [facility] [address] [place] [address] Dr. Hardeep Rivera CBC AUTO DIFFon 12-11-2022 BASO # 0.0 103/ul Normal 0.0-0.1 [facility] Comment on above: Performed By: #### RANDALL OLSON #### [facility] [address] [place] [address] Dr. Hardeep Rivera Basophils/100 WBC (Bld) 0.4 % Normal 0.2-2.0 [facility] Comment on above: Performed By: #### RANDALL OLSON #### [facility] [address] [place] [address] Dr. Hardeep Rivera EO # 0.2 103/ul Normal 0.0-0.7 [facility] Comment on above: Performed By: #### RANDALL OLSON #### [facility] [address] [place] [address] Dr. Hardeep Rivera Eosinophils/100 WBC (Bld) 2.7 % Normal 0.9-7.0 [facility] Comment on above: Performed By: #### HARI OLSONRO #### [facility] [address] [place] [address] Dr. Hardeep Rivera Erythrocyte distribution width (RBC) [Ratio] 11.9 % Normal 11.0-15.0 [facility] Comment on above: Performed By: #### HARI OLSONRO #### [facility] [address] [place] [address] Dr. Hardeep Rivera Hematocrit (Bld) [Volume fraction] 40.2 % Normal 36.0-48.0 [facility] Comment on above: Performed By: #### Deedee PINON UMICRO #### [facility] [address] [place] [address] Dr. Hardeep Rivera Hemoglobin (Bld) [Mass/Vol] 13.5 g/dL Normal 12.0-16.0 [facility] Comment on above: Performed By: #### Deedee PINON UMICRO #### [facility] [address] [place] [address] Dr. Hardeep Rivera IG # 0.03 10e3/ul Normal 0.00-0.03 [facility] Comment on above: Performed By: #### Deedee PINON UMICRO #### [facility] [address] [place] [address] Dr. Hardeep Rivera IG % 0.4 % Normal 0.0-0.5 [facility] Comment on above: Performed By: #### Deedee PINON UMICRO #### [facility] [address] [place] [address] Dr. Hardeep Rivera LYMPH # 0.9 103/ul Critically low 1.2-3.8 [facility] Comment on above: Performed By: #### Deedee PINON UMICRO #### [facility] [address] [place] [address] Dr. Hardeep Rivera Lymphocytes/100 WBC (Bld) 11.3 % Critically low 20.5-60.0 [facility] Comment on above: Performed By: #### Deedee PINON UMICRO #### [facility] [address] [place] [address] Dr. Hardeep Rivera MANUAL DIFF REQ NO Normal [facility] Comment on above: Performed By: #### Deedee PINON UMICRO #### [facility] [address] [place] [address] Dr. Hardeep Rivera MCH (RBC) [Entitic mass] 28.4 pg Normal 26.7-34.0 [facility] Comment on above: Performed By: #### Deedee PINON UMICRO #### [facility] [address] [place] [address] Dr. Hardeep Rivera MCHC (RBC) [Mass/Vol] 33.6 g/dL Normal 29.9-35.2 [facility] Comment on above: Performed By: #### HARI OLSONRO #### [facility] [address] [place] [address] Dr. Hardeep Rivera MCV (RBC) [Entitic vol] 84.5 fL Normal 81.0-99.0 [facility] Comment on above: Performed By: #### Deedee PINON UMICRO #### [facility] [address] [place] [address] Dr. Hardeep Rivera MONO # 1.0 103/ul Critically high 0.3-0.8 [facility] Comment on above: Performed By: #### Deedee PINON UMICRO #### [facility] [address] [place] [address] Dr. Hardeep Rivera Monocytes/100 WBC (Bld) 12.5 % Critically high 1.7-12.0 [facility] Comment on above: Performed By: #### Deedee PINON UMICRO #### [facility] [address] [place] [address] Dr. Hardeep Rivera NEUT # 5.9 103/ul Normal 1.4-6.5 [facility] Comment on above: Performed By: #### Deedee PINON UMICRO #### [facility] [address] [place] [address] Dr. Hardeep Rivera Neutrophils/100 WBC (Bld) 72.7 % Normal 43.0-75.0 [facility] Comment on above: Performed By: #### Deedee PINON UMICRO #### [facility] [address] [place] [address] Dr. Hardeep Rivera Platelet mean volume (Bld) [Entitic vol] 8.6 fL Critically low 9.5-13.5 [facility] Comment on above: Performed By: #### Deedee PINON UMICRO #### [facility] [address] [place] [address] Dr. Hardeep Rivera PLT 226 103/ul Normal 150-450 [facility] Comment on above: Performed By: #### HARI OLSONRO #### [facility] [address] [place] [address] Dr. Hardeep Rivera RBC 4.76 106/ul Normal 4.20-5.40 [facility] Comment on above: Performed By: #### HARI OLSONRO #### [facility] [address] [place] [address] Dr. Hardeep Rivera WBC 8.2 103/ul Normal 4.0-11.0 [facility] Comment on above: Performed By: #### Deedee PINON UMICRO #### [facility] [address] [place] [address] Dr. Hardeep Rivera FREE THYROXINE INDEX T7on FTI 3.40 Normal 1.30-4.50 [facility] Comment on above: Performed By: #### HARI OLSONRO #### [facility] [address] [place] [address] Dr. Hardeep Rivera T3U 34.0 % Normal 30.0-39.0 [facility] Comment on above: Performed By: #### HARI OLSONRO #### [facility] [address] [place] [address] Dr. Hardeep Rivera T4 [Mass/Vol] 10.00 ug/dL Normal 4.80-13.90 [facility] Comment on above: Performed By: #### HARI OLSONRO #### [facility] [address] [place] [address] Dr. Hardeep Rivera PROF 14(COMP METB)on 023 Albumin [Mass/Vol] 3.8 g/dL Normal 3.4-5.0 [facility] Comment on above: Performed By: #### HARI OLSONRO #### [facility] [address] [place] [address] Dr. Hardeep Rivera Albumin/Globulin [Mass ratio] 1.1 {ratio} Normal [facility] Comment on above: Performed By: #### HARI OLSONRO #### [facility] [address] [place] [address] Dr. Hardeep Rivera ALP [Catalytic activity/Vol] 192 U/L Critically high 46-116 [facility] Comment on above: Performed By: #### RANDALL OLSON #### [facility] [address] [place] [address] Dr. Hardeep Rivera ALT [Catalytic activity/Vol] 22 U/L Normal 14-59 [facility] Comment on above: Performed By: #### RANDALL OLSON #### [facility] [address] [place] [address] Dr. Hardeep Rivera Anion gap [Moles/Vol] 11.4 mmol/L Normal [facility] Comment on above: Performed By: #### RANDALL OLSON #### [facility] [address] [place] [address] Dr. Hardeep Rivera AST [Catalytic activity/Vol] 22 U/L Normal 15-37 [facility] Comment on above: Performed By: #### RANDALL OLSON #### [facility] [address] [place] [address] Dr. Hardeep Rivera Bilirubin [Mass/Vol] 0.5 mg/dL Normal 0.2-1.0 [facility] Comment on above: Performed By: #### RANDALL OLSON #### [facility] [address] [place] [address] Dr. Hardeep Rivera Calcium [Mass/Vol] 9.1 mg/dL Normal 8.5-10.1 [facility] Comment on above: Performed By: #### HARI OLSONRO #### [facility] [address] [place] [address] Dr. Hardeep Rivera Chloride [Moles/Vol] 93 mmol/L Critically low 98-107 [facility] Comment on above: Performed By: #### RANDALL OLSON #### [facility] [address] [place] [address] Dr. Hardeep Rivera CO2 [Moles/Vol] 30.8 mmol/L Normal 21.0-32.0 [facility] Comment on above: Performed By: #### HARI OLSONRO #### [facility] [address] [place] [address] Dr. Hardeep Rivera Creatinine [Mass/Vol] 1.49 mg/dL Critically high 0.55-1.02 [facility] Comment on above: Performed By: #### E RUR, UMICRO #### [facility] [address] [place] [address] Dr. Hardeep Rivera EGFR-AF ICELANDIC 41 mL/min/1.73m2 Critically low >=60 [facility] Comment on above: Performed By: #### E RUR, UMICRO #### [facility] [address] [place] [address] Dr. Hardeep Rivera EGFR-NON AF ICELANDIC 34 mL/min/1.73m2 Critically low >=60 [facility] Comment on above: Performed By: #### E RUR, UMICRO #### [facility] [address] [place] [address] Dr. Hardeep Rivera Globulin (S) [Mass/Vol] 3.4 g/dL Normal [facility] Comment on above: Performed By: #### E RUR, UMICRO #### [facility] [address] [place] [address] Dr. Hardeep Rivera Glucose [Mass/Vol] 116 mg/dL Critically high 74-106 [facility] Comment on above: Performed By: #### E RUR, UMICRO #### [facility] [address] [place] [address] Dr. Hardeep Rivera Potassium [Moles/Vol] 4.2 mmol/L Normal 3.5-5.1 [facility] Comment on above: Performed By: #### E RUR, UMICRO #### [facility] [address] [place] [address] Dr. Hardeep Rivera Protein [Mass/Vol] 7.2 g/dL Normal 6.4-8.2 [facility] Comment on above: Performed By: #### E RUR, UMICRO #### [facility] [address] [place] [address] Dr. Hardeep Rivera Sodium [Moles/Vol] 131 mmol/L Critically low 136-145 [facility] Comment on above: Performed By: #### RANDALL LOSON #### [facility] [address] [place] [address] Dr. Hardeep Rivera Urea nitrogen [Mass/Vol] 38.0 mg/dL Critically high 7.0-18.0 [facility] Comment on above: Performed By: #### HARI OLSONRO #### [facility] [address] [address] [address] Hardeep Rivera Urea nitrogen/Creatinine [Mass ratio] 25.5 mg/mg Normal [facility] Comment on above: Performed By: #### RANDALL OLSON #### [facility] [address] [place] [address] Dr. Hardeep Rivera TSHon 12-11-2022 TSH 6.407 uIU/mL Critically high 0.358-3.740 [facility] Comment on above: Performed By: #### RANDALL OLSON #### [facility] [address] [place] [address] Dr. Hardeep Rivera [facility]01 SARS-CoV-2 (COVID-19) RNA ULICES+probe Ql (Unsp spec) Not detected Normal NOT DETECTED [facility] Comment on above: Result Comment: This test is not yet approved or cleared by the [place] FDA. When there are no FDA-approved or cleared tests available, and other criteria are met, FDA can make tests available under an emergency access mechanism called an Emergency Use Authorization (EUA). The EUA for this test is supported by the [place] of Health and Human Service's (HHS's) declaration [...] consistent with SARS-CoV-2. Performed By: #### C [facility] #### [facility] [address] [place] [address] Dr. Hardeep Rivera INFLUENZA A AND B AGon 11-14 [facility] SEE BELOW Normal [facility] Comment on above: Result Comment: Nega tive for Flu A protein angiten. Infection due to Flu A cannot be ruled out. Flu A angiten in the sample may be below the detection limit of the test. Performed By: #### Deedee PINON UMICRO #### [facility] [address] [place] [address] Dr. Hardeep Rivera [facility] SEE BELOW Normal [facility] Comment on above: Result Comment: Nega tive for Flu B protein antigen. Infection due to Flu B cannot be ruled out. Flu B antigen in the sample may be below the detection limit of the test. Performed By: #### Deedee PINON UMICRO #### [facility] [address] [place] [address] Dr. Hardeep Rivera INFLUENZA A AG Negative Normal NEGATIVE SEE COMMENT [facility] Comment on above: Performed By: #### Deedee PINON ICRO #### [facility] [address] [place] [address] Dr. Hardeep Rivera INFLUENZA B AG Negative Normal NEGATIVE SEE COMMENT [facility] Comment on above: Performed By: #### Deedee PINON UMICRO #### [facility] [address] [place] [address] Dr. Hardeep Rivera INTERNAL CONTROLS Within Normal Limits Normal Wi thin Normal Limits [facility] Comment on above: Performed By: #### Deedee PINON UMICRO #### [facility] [address] [place] [address] Dr. Hardeep Rivera Covid-19 PCR ([facility])on SARS-CoV-2 (COVID-19) RNA ULICES+probe Ql (Unsp spec) Not detected Normal NOT DETECTED [facility] Comment on above: Result Comment: This test is not yet approved or cleared by the [place] FDA. When there are no FDA-approved or cleared tests available, and other criteria are met, FDA can make tests available under an emergency access mechanism called an Emergency Use Authorization (EUA). The EUA for this test is supported by the [place] of Health and Human Service's (HHS's) declaration [...] consistent with SARS-CoV-2. Performed By: #### [facility] #### [facility] [address] [place] [address] Dr. Hardeep Rivera INFLUENZA A AND B [facility] 10-03 [facility] SEE BELOW Normal [facility] Comment on above: Result Comment: Nega tive for Flu A protein angiten. Infection due to Flu A cannot be ruled out. Flu A angiten in the sample may be below the detection limit of the test. Performed By: #### E AKSHAT PINONICRO #### [facility] [address] [place] [address] Dr. Hardeep Rivera [facility] Normal [facility] Comment on above: Result Comment: Nega tive for Flu B protein antigen. Infection due to Flu B cannot be ruled out. Flu B antigen in the sample may be below the detection limit of the test. Performed By: #### E KATHRIN UMICRO #### [facility] [address] [place] [address] Dr. Hardeep Rivera INFLUENZA A AG Negative Normal NEGATIVE SEE COMMENT [facility] Comment on above: Performed By: #### E KATHRIN, UMICRO #### [facility] [address] [place] [address] Dr. Hardeep Rivera INFLUENZA B AG Negative Normal NEGATIVE SEE COMMENT [facility] Comment on above: Performed By: #### E RUR, ICRO #### [facility] [address] [place], [place] [address] Dr. Hardeep Rivera INTERNAL CONTROLS Within Normal Limits Normal Wi thin Normal Limits [facility] Comment on above: Performed By: #### E COLLISNR, ICRO #### [facility] [address] [place], [place] [address] Dr. Hardeep Clark [facility] SYLVIA HERRERA ([id number]) 1945 F Date Time Provider Department 08/16/22 SOY MCCANN [facility] IS[facility] During your visit today, we recorded [...] mg by mouth three times daily. 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 Hardeep Miguel CBC AUTO DIFFon 08-04-2022 BASO # 0.0 103/ul Normal 0.0-0.1 [facility] Comment on above: Performed By: #### C BC ####[facility] [address] [address]Dr. Hardeep Rivera Basophils/100 WBC (Bld) 0.3 % Normal 0.2-2.0 [facility] Comment on above: Performed By: #### C BC ####[facility] [address] [place], [place] [address]Dr. Hardeep Rivera EO # 0.1 103/ul Normal 0.0-0.7 [facility] Comment on above: Performed By: #### C BC ####[facility] [address] [address]Dr. Hardeep Rivera Eosinophils/100 WBC (Bld) 1.2 % Normal 0.9-7.0 [facility] Comment on above: Performed By: #### C BC ####[facility] [address] [place], [place] [address]Dr. Hardeep Rivera Erythrocyte distribution width (RBC) [Ratio] 12.2 % Normal 11.0-15.0 [facility] Comment on above: Performed By: #### C BC ####[facility] [address] [place], [place] [address]Dr. Hardeep Rivera Hematocrit (Bld) [Volume fraction] 38.3 % Normal 36.0-48.0 [facility] Comment on above: Performed By: #### C BC ####[facility] [address] [place], [place] [address]Dr. Hardeep Rivera Hemoglobin (Bld) [Mass/Vol] 12.9 g/dL Normal 12.0-16.0 [facility] Comment on above: Performed By: #### C BC ####[facility] [address] [address]Dr. Preethiarabella Miguel IG # 0.02 10e3/ul Normal 0.00-0.03 [facility] Comment on above: Performed By: #### C BC ####[facility] [address] [address]Dr. Hardeep Rivera IG % 0.3 % Normal 0.0-0.5 [facility] Comment on above: Performed By: #### C BC ####[facility] [address] [address]Dr. Hardeep Rivera LYMPH # 1.1 103/ul Critically low 1.2-3.8 [facility] Comment on above: Performed By: #### C BC ####[facility] [address] [address]Dr. Hardeep Rivera Lymphocytes/100 WBC (Bld) 16.6 % Critically low 20.5-60.0 [facility] Comment on above: Performed By: #### C BC ####[facility] [address] [address]Dr. Hardeep Rivera MANUAL DIFF REQ NO Normal [facility] Comment on above: Performed By: #### C BC ####[facility] [address] [address]Dr. Hardeep Rivera MCH (RBC) [Entitic mass] 29.7 pg Normal 26.7-34.0 [facility] Comment on above: Performed By: #### C BC ####[facility] [address] [place], [place] [address]Dr. Preethiarabella Rivera MCHC (RBC) [Mass/Vol] 33.7 g/dL Normal 29.9-35.2 [facility] Comment on above: Performed By: #### C BC ####[facility] [address] [address]Dr. Hardeep Rivera MCV (RBC) [Entitic vol] 88.2 fL Normal 81.0-99.0 [facility] Comment on above: Performed By: #### C BC ####[facility] [address] [address]Dr. Hardeep Rivera MONO # 0.7 103/ul Normal 0.3-0.8 [facility] Comment on above: Performed By: #### C BC ####[facility] [address] [address]Dr. Hardeep Rivera Monocytes/100 WBC (Bld) 11.1 % Normal 1.7-12.0 [facility] Comment on above: Performed By: #### C BC ####[facility] [address] [address]Dr. Hardeep Rivera NEUT # 4.6 103/ul Normal 1.4-6.5 [facility] Comment on above: Performed By: #### C BC ####[facility] [address] [address]Dr. Hardeep Rivera Neutrophils/100 WBC (Bld) 70.5 % Normal 43.0-75.0 [facility] Comment on above: Performed By: #### C BC ####[facility] [address] [address]Dr. Hardeep Rivera Platelet mean volume (Bld) [Entitic vol] 9.4 fL Critically low 9.5-13.5 [facility] Comment on above: Performed By: #### C BC ####[facility] [address] [address]Dr. Hardeep Rivera PLT 203 103/ul Normal 150-450 [facility] Comment on above: Performed By: #### C BC ####[facility] [address] [place], [place] [address]Dr. Hardeep Rivera RBC 4.34 106/ul Normal 4.20-5.40 [facility] Comment on above: Performed By: #### C BC ####[facility] [address] [address]Dr. Hardeep Rivera WBC 6.5 103/ul Normal 4.0-11.0 [facility] Comment on above: Performed By: #### C BC ####[facility] [address] [place], [place] [address]. [address] ABD/PELVIS WO CONon 08-04 [...] ALEXSANDER HARDING Date: 2022-08-04 20:12 Normal [facility] Covid-19 PCR ([facility]VD[facility])on SARS-CoV-2 (COVID-19) RNA ULICES+probe Ql (Unsp spec) Not detected Normal NOT DETECTED [facility] Comment on above: Result Comment: When [...] for this test is supported by the Head Of [employer]ogen[employer] of Health and Human Service's declaration that [...] be used). Performed By: #### C VDTBH ####[facility] [address] [place], [place] [address]LmDr. Hardeep Rivera ER URINE PROFILEon 2 Bilirubin Ql (U) Negative Normal NEGATIVE [facility] Comment on above: Performed By: #### E RUR #### [facility] [address] [place], [place] [address] Dr. Hardeep Rivera Clarity (U) CLEAR Normal CLEAR [facility] Comment on above: Performed By: #### E RUR #### [facility] [address] [address] [address] Hardeep Rivera Color (U) LT. YELLOW Normal YELLOW [facility] Comment on above: Performed By: #### E RUR #### [facility] [address] [place] [address] Dr. Hardeep FRANCIS A micrscopic examina tion will be performed if indicated. Normal [facility] Comment on above: Performed By: #### E RUR #### [facility] [address] [place] [address] Dr. Hardeep Rivera Glucose Ql (U) Negative Normal NEGATIVE [facility] Comment on above: Performed By: #### E RUR #### [facility] [address] [place] [address] Dr. Hardeep Rivera Hemoglobin Ql (U) Negative Normal NEGATIVE [facility] Comment on above: Performed By: #### E RUR #### [facility] [address] [place] [address] Dr. Hardeep Rivera Ketones Ql (U) Negative Normal NEGATIVE [facility] Comment on above: Performed By: #### E RUR #### [facility] [address] [place] [address] Dr. Hardeep Rivera LEUKOCYTES Negative Normal NEGATIVE [facility] Comment on above: Performed By: #### E RUR #### [facility] [address] [place] [address] Dr. Hardeep Rivera Nitrite Ql (U) Negative Normal NEGATIVE The [facility] Comment on above: Performed By: #### E RUR #### [facility] [address] [place] [address] Dr. Hardeep Rivera pH (U) 7.0 [pH] Normal 5-9 [facility] Comment on above: Performed By: #### E RUR #### [facility] [address] [place] [address] Dr. Hardeep Rivera SPEC GRAVITY <=1.005 Abnormal 1.005-<=1.0 25 [facility] Comment on above: Performed By: #### E RUR #### [facility] [address] [address] [address] Hardeep Rivera UA PROTEIN Negative Normal NEGATIVE/ TRACE [facility] Comment on above: Performed By: #### E RUR #### [facility] [address] [address] [address] Hardeep Rivera UR MICRO IND NOT INDICATED Normal The [facility] Comment on above: Performed By: #### E RUR #### [facility] [address] [address] [address] Hardeep Rivera Urobilinogen Qn (U) 0.2 {Kevon'U}/dL Normal 0.2 - 1. 0 The [facility] Comment on above: Performed By: #### E RUR #### [facility] [address] [address] [address] Hardeep Rivera LIPASEon 08-04-2022 Lipase [Catalytic activity/Vol] 1486.0 U/L Critically high 73.0-393.0 [facility] Comment on above: Performed By: #### C MP, LIPA, BRITTNEY ####[facility] [address] [address]DrLaura Rivera PROF 14(COMP METB)on 022 Albumin [Mass/Vol] 3.6 g/dL Normal 3.4-5.0 The [facility] Comment on above: Performed By: #### C MP, LIPA, BRITTNEY ####[facility] [address] [address]DrLaura Rivera Albumin/Globulin [Mass ratio] 1.3 {ratio} Normal [facility] Comment on above: Performed By: #### C MP, LIPA, BRITTNEY ####[facility] [address] [address]DrLaura Rivera ALP [Catalytic activity/Vol] 171 U/L Critically high 46-116 [facility] Comment on above: Performed By: #### C MP, LIPA, BRITTNEY ####[facility] [address] [address]DrLaura Rivera ALT [Catalytic activity/Vol] 35 U/L Normal 14-59 [facility] Comment on above: Performed By: #### C MP LIPA, BRITTNEY ####[facility] [address] [address]Dr. Hradeep Rivera Anion gap [Moles/Vol] 11.4 mmol/L Normal [facility] Comment on above: Performed By: #### C ARGENIS LIPA, BRITTNEY ####[facility] [address] [address]Dr. Hardeep Rivera AST [Catalytic activity/Vol] 28 U/L Normal 15-37 [facility] Comment on above: Performed By: #### C ARGENIS LIPA, BRITTNEY ####[facility] [address] [place], [place] [address]Dr. Hardeep Rivera Bilirubin [Mass/Vol] 0.7 mg/dL Normal 0.2-1.0 [facility] Comment on above: Performed By: #### C ARGENIS LIPA, BRITTNEY ####[facility] [address] [place], [place] [address]Dr. Hardeep Rivera Calcium [Mass/Vol] 8.4 mg/dL Critically low 8.5-10.1 Th [facility] Comment on above: Performed By: #### C ARGENIS LIPA, BRITTNEY ####[facility] [address] [place], [place] [address]Dr. Hardeep Rivera Chloride [Moles/Vol] 100 mmol/L Normal 98-107 The [facility] Comment on above: Performed By: #### C MP LIPA, BRITTNEY ####[facility] [address] [place], [place] [address]Dr. Hardeep Rivera CO2 [Moles/Vol] 25.6 mmol/L Normal 21.0-32.0 The [facility] Comment on above: Performed By: #### C ARGENIS LIPA, BRITTNEY ####[facility] [address] [place], [place] [address]Dr. Hardeep Rivera Creatinine [Mass/Vol] 1.33 mg/dL Critically high 0.55-1.02 [facility] Comment on above: Performed By: #### C MP LIPA, BRITTNEY ####[facility] [address] [address]Dr. Hardeep Rivera EGFR-AF ICELANDIC 47 mL/min/1.73m2 Critically low >=60 [facility] Comment on above: Performed By: #### C MP LIPA, BRITTNEY ####[facility] [address] [address]Dr. Hardeep Rivera EGFR-NON AF ICELANDIC 39 mL/min/1.73m2 Critically low >=60 [facility] Comment on above: Performed By: #### C MP, LIPA, BRITTNEY ####[facility] [address] [address]Dr. Hardeep Rivera Globulin (S) [Mass/Vol] 2.7 g/dL Normal [facility] Comment on above: Performed By: #### C MP, LIPA, BRITTNEY ####[facility] [address] [address]Dr. Hardeep Rivera Glucose [Mass/Vol] 108 mg/dL Critically high 74-106 [facility] Comment on above: Performed By: #### C MP, LIPA, BRITTNEY ####[facility] [address] [address]Dr. Hardeep Rivera Potassium [Moles/Vol] 4.0 mmol/L Normal 3.5-5.1 [facility] Comment on above: Performed By: #### C MP, LIPA, BRITTNEY ####[facility] [address] [address]Dr. Hardeep Rivera Protein [Mass/Vol] 6.3 g/dL Critically low 6.4-8.2 Th [facility] Comment on above: Performed By: #### C MP, LIPA, BRITTNEY ####[facility] [address] [place], [place] [address]Dr. Hardeep Rivera Sodium [Moles/Vol] 133 mmol/L Critically low 136-145 Th [facility] Comment on above: Performed By: #### C MP, LIPA, BRITTNEY ####[facility] [address] [address]Dr. Hardeep Rivera Urea nitrogen [Mass/Vol] 23.0 mg/dL Critically high 7.0-18.0 [facility] Comment on above: Performed By: #### C ABAD MORE AMY ####[facility] [address] [address]Dr. Hardeep Rivera Urea nitrogen/Creatinine [Mass ratio] 17.3 mg/mg Normal [facility] Comment on above: Performed By: #### C ABAD MORE AMY ####[facility] [address] [address]Dr. Hardeep Rivera Pre-Certification Formon Pre-Certification Form [id number]:12 7 Normal [facility] BOX TEST SENT OUTon 08-02-20 22 SENT TO REF LAB 08/02/2022 Normal [facility] Comment on above: Performed By: #### Dedeee PINON #### [facility] [address] [place] [address] Dr. Hardeep Rivera CBC AUTO DIFFon 08-02-2022 BASO # 0.0 103/ul Normal 0.0-0.1 [facility] Comment on above: Performed By: #### RANDALL OLSON #### [facility] [address] [place] [address] Dr. Hardeep Rivera Basophils/100 WBC (Bld) 0.3 % Normal 0.2-2.0 [facility] Comment on above: Performed By: #### RANDALL OLSON #### [facility] [address] [place] [address] Dr. Hardeep Rivera EO # 0.1 103/ul Normal 0.0-0.7 [facility] Comment on above: Performed By: #### RANDALL OLSON #### [facility] [address] [place] [address] Dr. Hardeep Rivera Eosinophils/100 WBC (Bld) 1.4 % Normal 0.9-7.0 [facility] Comment on above: Performed By: #### RANDALL OLSON #### [facility] [address] [place] [address] Dr. Hardeep Rivera Erythrocyte distribution width (RBC) [Ratio] 12.2 % Normal 11.0-15.0 [facility] Comment on above: Performed By: #### HARI OLSONRO #### [facility] [address] [place] [address] Dr. Hardeep Rivera Hematocrit (Bld) [Volume fraction] 41.2 % Normal 36.0-48.0 [facility] Comment on above: Performed By: #### Deedee PINON UMICRO #### [facility] [address] [place] [address] Dr. Hardeep Rivera Hemoglobin (Bld) [Mass/Vol] 13.6 g/dL Normal 12.0-16.0 [facility] Comment on above: Performed By: #### Deedee PINON UMICRO #### [facility] [address] [place] [address] Dr. Hardeep Rivera IG # 0.02 10e3/ul Normal 0.00-0.03 [facility] Comment on above: Performed By: #### Deedee PINON UMICRO #### [facility] [address] [place] [address] Dr. Hardeep Rivera IG % 0.3 % Normal 0.0-0.5 [facility] Comment on above: Performed By: #### Deedee PINON UMICRO #### [facility] [address] [place] [address] Dr. Hardeep Rivera LYMPH # 0.6 103/ul Critically low 1.2-3.8 The [facility] Comment on above: Performed By: #### Deedee PINON UMICRO #### [facility] [address] [place] [address] Dr. Hardeep Rivera Lymphocytes/100 WBC (Bld) 8.9 % Critically low 20.5-60.0 [facility] Comment on above: Performed By: #### Deedee PINON, UMICRO #### [facility] [address] [place] [address] Dr. Hardeep Rivera MANUAL DIFF REQ NO Normal [facility] Comment on above: Performed By: #### HARI OLSONRO #### [facility] [address] [place] [address] Dr. Hardeep Rivera MCH (RBC) [Entitic mass] 29.6 pg Normal 26.7-34.0 [facility] Comment on above: Performed By: #### HARI OLSONRO #### [facility] [address] [place] [address] Dr. Hardeep Rivera MCHC (RBC) [Mass/Vol] 33.0 g/dL Normal 29.9-35.2 [facility] Comment on above: Performed By: #### HARI OLSONRO #### [facility] [address] [place] [address] Dr. Hardeep Rivera MCV (RBC) [Entitic vol] 89.8 fL Normal 81.0-99.0 [facility] Comment on above: Performed By: #### HARI OLSONRO #### [facility] [address] [place] [address] Dr. Hardeep Rivera MONO # 0.7 103/ul Normal 0.3-0.8 [facility] Comment on above: Performed By: #### HARI OLSONRO #### [facility] [address] [place] [address] Dr. Hardeep Rivera Monocytes/100 WBC (Bld) 11.6 % Normal 1.7-12.0 [facility] Comment on above: Performed By: #### HARI OLSONRO #### [facility] [address] [place] [address] Dr. Hardeep Rivera NEUT # 5.0 103/ul Normal 1.4-6.5 [facility] Comment on above: Performed By: #### HARI OLSONRO #### [facility] [address] [place] [address] Dr. Hardeep Rivera Neutrophils/100 WBC (Bld) 77.5 % Critically high 43.0-75.0 [facility] Comment on above: Performed By: #### HARI OLSONRO #### [facility] [address] [address] [address] Hardeep Rivera Platelet mean volume (Bld) [Entitic vol] 9.4 fL Critically low 9.5-13.5 [facility] Comment on above: Performed By: #### Deedee PINON, HARIRO #### [facility] [address] [place], [place] [address] Dr. Hardeep Rivera PLT 200 103/ul Normal 150-450 [facility] Comment on above: Performed By: #### Deedee PINON, HARIRO #### [facility] [address] [address] [address] Hardeep Rivera RBC 4.59 106/ul Normal 4.20-5.40 [facility] Comment on above: Performed By: #### Deedee PINON, HARIRO #### [facility] [address] [address] [address] Hardeep Rivera WBC 6.4 103/ul Normal 4.0-11.0 [facility] Comment on above: Performed By: #### Deedee PINON, BENNETTRO #### [facility] [address] [address] [address] Hardeep Clark 08-02-2022 CNPN Telephone (JULIAN [facility]) -- SYLVIA HERRERA ([id number]) 1945 F Date Time Provider Department 08/02/22 LOIDA MATHIAS [facility] During your visit today, we recorded the following information about you: Lidnen Faustina 08/02/2022 1:42 PM Signed Patient had labs drawn 08/02/22, uploaded to scanned docs. Loida Mathias APRN.[employer]IDE 08/07/2022 10:27 AM Signed Received outside labs drawn 08/02 -- FK 4.7 Cr 1.4 BUN 21 K 3.9 FBS 119 WBC 6400 Hgb 13.6 Hct 41 Plts 200 My chart message sent to patient. Advised no changes. Asked that she keep us posted re: if she will be transferring her care. Loida Mathias APRN.SHOPPER'S AIDE August 07, 2022 10:27 AM Allergies As [...] mg by mouth three times daily. - hwbrya-ctpsfred-zdyipmb (CREON) 24,000-76,000 -120,000 unit cpDR Take 3 [...] Status:Closed by LINDEN WEEMS on 08/02/22 Normal [facility] PROF CHEM 8 (BAS METB)on Anion gap [Moles/Vol] 12.2 mmol/L Normal [facility] Comment on above: Performed By: #### RANDALL OLSON #### [facility] [address] [address] [address] Hardeep Rivera Calcium [Mass/Vol] 8.6 mg/dL Normal 8.5-10.1 [facility] Comment on above: Performed By: #### RANDALL OLSON #### [facility] [address] [address] [address] Hardeep Rivera Chloride [Moles/Vol] 98 mmol/L Normal 98-107 [facility] Comment on above: Performed By: #### RANDALL OLSON #### [facility] [address] [address] [address] Hardeep Rivera CO2 [Moles/Vol] 27.7 mmol/L Normal 21.0-32.0 [facility] Comment on above: Performed By: #### AKSHAT OLSONICRO #### [facility] [address] [address] [address] Hardeep Rivera Creatinine [Mass/Vol] 1.42 mg/dL Critically high 0.55-1.02 [facility] Comment on above: Performed By: #### Deedee PINON, UMICRO #### [facility] [address] [address] [address] Hardeep Rivera EGFR-AF ICELANDIC 43 mL/min/1.73m2 Critically low >=60 [facility] Comment on above: Performed By: #### Deedee PINON UMICRO #### [facility] [address] [address] [address] Hardeep Rivera EGFR-NON AF ICELANDIC 36 mL/min/1.73m2 Critically low >=60 [facility] Comment on above: Performed By: #### Deedee PINON UMICRO #### [facility] [address] [address] [address] Hardeep Rivera Glucose [Mass/Vol] 119 mg/dL Critically high 74-106 [facility] Comment on above: Performed By: #### Deedee PINON, UMICRO #### [facility] [address] [address] [address] Hardeep Rivera Potassium [Moles/Vol] 3.9 mmol/L Normal 3.5-5.1 [facility] Comment on above: Performed By: #### Deedee PINON, UMICRO #### [facility] [address] [address] [address] Hardeep Rivera Sodium [Moles/Vol] 134 mmol/L Critically low 136-145 Th [facility] Comment on above: Performed By: #### Deedee PINON, UMICRO #### [facility] [address] [address] [address] Hardeep Rivera Urea nitrogen [Mass/Vol] 21.0 mg/dL Critically high 7.0-18.0 [facility] Comment on above: Performed By: #### E RANDALL PINON #### [facility] [address] [place], [place] [address] Dr. Hardeep Rivera Urea nitrogen/Creatinine [Mass ratio] 14.8 mg/mg Normal [facility] Comment on above: Performed By: #### E RANDALL PINON #### [facility] [id number] Hardeep Rivera Tacrolimus Bld-ncon 2021 Tacrolimus (Bld) [Mass/Vol] 4.7 ng/mL Low 5.0-20.0 [facility] Comment on above: Order Comment: Speci [...] Test performed by chemiluminescent immunoassay using [employer]. Performed By: #### 1 1253-2 ####[facility] [id number] [place] [address] [place] Giardia, Direct, EIAon 07-23 G. lamblia Ag IA Ql (Stl) Negative Invalid Interpretation Code Negative [facility] Comment on above: Result Comment: Perf ormed at: [facility] [id number] [place], [place] [id number] PhD Sommer Davis Performed By: #### 4 [id number], [id number] ####[facility] [address] [place] [address] O & P EXAM, ROUTINE, REFLEXo n 07-23-2022 Ova and parasites identified Concentration Nom (Stl) Comment Invalid Interpretation Code [facility] Comment on above: Result Comment: No o va, cysts, or parasites seen. One negative specimen does not rule out the possibility of a parasitic infection. Performed at: [address] [id number] PhD Sommer Davis Performed By: #### 4 [id number] ####[facility] [address] [place] [address] O & P Exam, Routineon 2021 Ova and parasites identified LM Nom (Unsp spec) Final report Invalid Interpretation Code [facility] Comment on above: Result Comment: Thes e results were obtained using wet preparation(s) and trichrome stained smear. This test does not include testing for Cryptosporidium parvum, Cyclospora, or Microsporidia. Performed at: [address] [id number] PhD Sommer Davis Performed By: #### 4 [id number], [id number] ####[id number] [place] [address] Consent for Procedure/Surger yon 07-19-2022 Consent for Procedure/Surgery [id number]:12 7 Normal [facility] CMV IgMon 07-18-2022 CMV IgM IA Qn <30.0 Invalid Interpretation Code 0.0-29.9 [facility] Comment on above: Result Comment: Nega tive <30.0 Equivocal 30.0 - 34.9 Positive >34.9 A positive result is generally indicative of acute infection, reactivation or persistent IgM production. Performed at: [address] [id number] PhD Sommer Davis Performed By: #### 1 [id number] ####[facility] [address] [place] [address] Coding Summary.on 07-18-2022 Coding Summary. [id number] Gh0bWw +PGhlYWQ+WG8DZYUdW16llJHbw H1UK7nKAD3OCBKBSTMQUW9EFZ5 jxBS6CRacX5CocnJa DjlqgHOtCV83FMx3JWP7bOoeGB yfaA2eiTHqT2e0BrPnDY47oI82 PYhiTWTpWsM0FbRqkbailQLr I8jzZmKbxKYzGzk+PHRhYmxlIH jpLFKsWVgqHNUsMwTvcVwvMS1s Fo8eCRApJMQmaBijjGVkWuFf e2rkNWJkUKbhAO7zxYqbV2IhgZ X9NGMad5l2Gw47uSU+PHRkIHN0 eIvnIMpyp501FlVul2bkBOP7 kTSmKNhsJBV7C42lu8E1YCQtKM UeLSF3iZV5nS9vtPkdfrlzW8Am bGGcJiK3ESZ1jFLxjO6slGnk acofiK9oFji+T26FCO4MABDCWR 7TPkw0K0EjVdbcePP+FX46FSQb CU12lRCmbEJii8hstPw3FvNt BNNrCXC9eFbdCNwqi9ZcHJQvP7 4sgNZfp2Q7BJMtcEvtvHEqGwKb gDI7sQ2zOHyyuqczz6tinpll Txscf4ufvy79vF97F16oPYhbTY IoRNW2ACIwOOExtMxknz1jpQ2k Ii8+OFbit4dpk0ogjTh2JtUy GTWvcrPutDhfMKM8n5IbVx89H7 VgnXcwq2XbYem6ry22sOGoe4X9 gVV0KBveDGJqzL5bCNssWoQ8 HTHtQaUahI94kZPcKWmbEx1ogO ojqHspQB7kRQSagttrZJKbwC9a YQRbaDDvhQegGN2eVSCiczwb l940ZxAeRRW1ZRKqtINoG7XjjA 4tYrMeZQPfRKLmB4EgwVHsCZhe C798KWseCtV4ADEgszMfK4Ve PKTnkHbxXaO3c4P2Bt5Bv6Jhio epAVX1ZVulXIT1QdJ1ZrXrSrQ8 L8GaMfp6SKEruXoaUY6pA2Qq ZUKyqefnekimvHC3GAMkRBWjuL 24nHHxPUphWl2jo0L1y365CBWc PYKqiE99Jo9fnOilNLTjqZIJ rP7dcenfq1xobcxuCbYuNIYdNQ o0PZe2WZWwaEqcSoXrTMN8NuL2 ZIH2tNPxiH6kaIxeypibuN9i Oyc+M51plI2lZHL7FRI0lqccUJ CiatGwYA45PI80N5ZgXlbdvHWe bGU+ISYetpPfyFsoSD5lTuXw c7ppz8OfWWqsQ4YnAFHqYCkpYz e3WJTbFUJ9sOI2rL4jLFSiPTfo e2X1iSE8P9RfujYmir5ne1ct XMZsBZltX75leWPbp8F5GIAreZ J2FGVuwQnnUzHocP94Wse+PGNv rVdeq3FvUbmev6mlx8btwOt8 UnTzXGXcktUzoHxfPJF5y6RkYp 09X58rNKedOXZwLRUxFCKzYMTr sQymaj1erD0vCk6+PGNvbCB3 rOL5rC9hHTLtUmV2HVszQ349Dy NgeWSlUgpgh9clz9phrDa8ZqOi ZJDxsxMxuAxwZTE6p2QkUd34 Z01aDWlwPIXaTTLjXWRzKSMrkH vzzn0olJ8lKz2+SW6zq5lmyy11 kA58zUF+HRPiNTR9vImgNFej AJXlmS2fIFgrHkS9PBKtYtOmgZ 83eXOaRZozVf0enUpahLmrCI7w XSDwvctfn656ByFmm8cvZTGd jKPpZGrsLXU2T53nc9F7EFCwNW OnERX8tAF4mL1xdYknmhyifNDh rXtbogJstJyyFRgsCSfkY315 IHRvcDsnPlBhdGllbnQgTmFtZT v8O4LzRzo7ITPewRquPG6keNQo CCuwPk1oqQwuqQipBU5gIRIq tasiu508MuSgj7uqKZUgcCVqQA fpJLR4Y81on2H8HXKzHAQuAUD4 cIK7mQ3fmArjywsgpIIsyRjd hcLhjBokEHifRPftM975OWWtiO maCmMfdgIiUCXteJE2TC01NF20 oXEit1U2oFB1P0HhECOwtmeg lpbthOR4MUAsRSAatX99Vk9zuF ptWo8jXNDnPQD0JUOdsXDfM2Zd jR6sEiBbOWTpLZLzO8ScyRVl WSlgH869CSkoNxD9RSKwhgOiX8 NaGVXuiYotFeN1l2K1Yr7ZT2N0 FN24LK52qDSnu0T4wQR4B8Kd YAUaqajfivimhGL3QVYyQEMztN 18Lq1fwKjmWs8gQYPnAZC2EOQl yOAxB4VuuF5lXiNoWRBpBYMz O5JwjMJpKQxqC257PVguLfM1UK GmbcGaL5JzSPTynQweThW1g1B3 Ls9WSPw9CF85PG41pVVpv7A2 mQE1M5UnVBIccynvubpahZZ3RF DpBROmvU78Sw0yfTkdRp9lRAYl YRH9UWCxlQCjB5UmyD1eRfVn RQZfEGHdI0ObqSSeJSalK039BC xhOcH6IJIsscOlJ0OfCYMbhFih FtY2q7G9Pn8CKKIjXQ42QBI6 aBT9GI27EQ23H5DpXipiiGVgiO U+PHRhYmxlIHdpZHRoPScxMDAl ZaZhfYbbMP8aBu6xWIXsOYJc xYlvjSAxMrTib3sqEILqGThaAP 8qlJoyV1UcqQC2YZQwi8k8Hi73 W21uU4NmzDW+IBCttNZ7pOX1 yN2kWiKwPcS0QZddD891LmEdyP OdBpccp9gfz3ayaUx2CxW0QVWc ijGcdOahTUT2n4MsEt79X39m IHdpZHRoPSIxNSUiIHZhbGlnbj 9ebA4rDa7+JPViiNB4oSJ7tS7f AmYoSnO8QIgoX941WwGlmITi Ueoir7ghc9elkMo1WlGlHNPksu PnsIzhYCH1r8ImJz23U6RjzQil a9JbIdk4oi35yFDwa6B4yNF6 K3HtBDYwjevilXAbdIwxVX5uQE HhrmwpBDEkoH6gLVBtB9b5IoEb FqI9SDkkJ1IkimA1LJLvjDEa ASeyKEY9Z78bw1O1UIQaSEAaZM J1kOT8aD6bxYszpacirOZyrFdi weYchWpmSXpbWGmeJ764CSFs kDxiZUYszV8rJTNtkPAkxJocLM 4wNTBpbjsnPlBFTkNFLCBISUxE SWQVKX69FG60tGRon0G7tJM1 H6QqNFHtsgeobxarsOS1NLUbRX StmI49bSKtWApqWz7kr0N5p785 WRCbIEEohS84Nb8mgVlnTUTi kPUSmG6gussbw8ugcmpwFbLaXX FuVTi7EHq9XGWecEhdMpIoVDU3 YgZ0SDH9zCWreL7dsDtkibrd mS7pCtg+MIVkEtGbZPi3UQmaiA Q+DXIjTIK1oLfaOCeqWMJekM5w KUJsY5s7OpXwXxG4ITrvC7Uo RFXldjcmCp75wV7sQhDyOlY2JS ycP3LkbpX5AOKwfXEpPBmgFNC4 G07jz2L8PNWeADTjFEZ9yWC6 sF2krXqqpruzdYEmcFagywRtsG xkDLpgKKtbV956KCFbtFigYdk5 MNxmZHDrHG78VW03jQWol2N5 mSX0W8QcGLLusrewvkbrnDK1RX VeUHZvfH41nMIbHRkrRy7kh0P4 g130MDUmQHDteZ75Qr4kiHcx XPYnsYRLiF9spdmko6svrnvfIz EfZEInAYa7NJj1GNEhiBshSqDe BGO3FlV7RYJ0aWQakT1rbDdb azpchE3xXua+VtTpJAtkQH26ZO 68yBHsu8M0cCT6J9EvESHwipvf mnrtaVV6NIWaBUPbeP43uETg DLsfAh4xg2F2f966IFNaIJPhdZ 68Ui1hgNpnRWFlxLVYeU6iupug y4thshmaZcFsUDPuKEm3ACx8 IGLhxMorWcYeDJJ4LuL0CGO3pZ ZevO8bmEsxfnblaJ4cLhu+T3V0 wHR6cBTtuLdyfCX+AT33km75 V4VuCqupSra4XFSrZUZ2uCH9aC 3lSGWzJBlgc0J2xYH2A7HdtgWx ib4mk0ncUAViEMbpJ95ftGOg m6G7INGzwCJ4KAQwdOolYjJebT 93Oyc+KDCxkPois3JnAoxgg7mo w6uavVt9LfXuLOVjjhTsoCyy OEP9m1GzUe25J68dKPvpVYYpUS TfNLZfJDUwxBqjpf1ywC2gCn6+ VASboVH8qWG2iF7jMdEfYvL7 SXhbU366SjUxkHWyLegoi1yst0 rmbJp7WuSuLALggnBzpYtoXNG5 y6KxIm34I9BxyMfhp0JcQln7 zn96eUNtr7V4sLS2Q1LdLTGzxa lbrGBesRxgYH5oOTWqheqtQFCf zG3wYNWxU4g0KaAxVvR6VKnx A9HxroV0QPZtpMJdOATcyAFYcG 6gpzukb7htsoffUsDbQXIjRYa1 BJc2XHGurCenDnJwOQQ7MjA5 IOB9iHHilS8flYgbshztcK8zXn c+ZJg4b1qseHTsRB2joRA5ZG80 KE79jJWfn1Z1tHG6I9VqAQPe hidmpyuktIK2UWTuHSGbtR13Bu 2fsBqdZm4yBZYwMUQ9WTHhlNHb F5YumU1bAuZxZYZtRVBiU2Bm wVUeHUvpY875YRjzZlO6USTcxz QdZ3VbEKRkfNuoRjA7n0B9Uk0K ZL43NC00SV11mWWfy1T5qSK2 E6QmJJFlmvsdpcckwFW1CVRzHM YwkB77Ht6orLkbQi9vISJhXTT3 UDTksFNpH7WanK6xFpCwUPWc LTWiU8BwePFeRJxwR152CXraZn N8HGTvqrUrX7AvMUIcoKbiOtB6 o5Y8Vb8ZZp02JX69UB67fAFh j8E9aVM9I4TqYYOtzaglbzywfS K5OXDsWCYldH73Ew8keIygIo8b TGVpFAC2QGWpiQWgU2RcyR1a LsVwWWGwXKOmO1GzzJIeNPrjL9 59EBvvFzT4JCSjowZrQ7RxIWUj fXltRkN4n7K1Fr7LQIhlvtq7 L0KrXuehuLI+QP32XQVjPM83tO CrwJAph3okdDq7EtFiIPHxCMF7 yTzcKVmca3ZcUXMuE94oqWUb c2U6 (more content not included)... Normal [facility] Coding Summary. CD:[id number]:[id number] Gh0bWw +PGhlYWQ+UI7NITWhM81utGVty Z9BS6oZOZ9MQDNEEXOWPY8PGO5 qmFO2XCgrG6KeclOj ZqryfQJpSS03TAd4HCH6mJawAR ldrM2snGHwE7q3ObXcZT22fY98 WEzbMRKmMpP3AwBrtbwysRVq H9maMsUhhOSkIoh+PHRhYmxlIH pnNYZgVZblIZXoPcKdjHiwXK6q Zb0lVYTrPHNfzMpzkEAsLsAk k7djLYWlVWryPI7zmZigV2BrfB M3KWQqs3k4Fl07wXS+PHRkIHN0 bQfsVBxwr816CmAzd8lkWPQ1 uEYkEQrwCGG1Y74mn3Y3PWHmWA NmWMC9qWU7uC7uoLurzjizF7Ns fEAdMjG7YFM0gPPgvR2ylHds pljisY7fYzz+J37KCM6HHCJQAD 0BRjt0E4EfPaqtaUL+TC13JPDu CP77rRDuaQOqb0ipxOs6LkSm QEWfRAX7tUliYTjtf6BnMOBhA8 2kxSRna8J8QKOdyOpzrZNcIjMq pYY5zU3gMJypgflfa6coxfsi Ksixw9ounf96dA59S79mOBjySU MxHDA0OVRjZEDbsKfini8mfZ4j Ii8+SXsfl1ydp9clvHy1DrHw TQKufgQsmYywIKM9g7PwOn30G5 KisQadv1HbWqm7af16fXLih1W9 eKJ0CXpsZCLlkZ6dZFyoWjY4 BBZoLiFwgX23nYJhTHzoYp1rdB pecCmnXH8xXKAznuunRRMqzK6u VGLzpIJzmNxpYG5cZQQvijfb z760WsRiYWN9KCGaiIWnJ4LtxI 0iSaUaXULxQQQfS9UhqTRgQMbz E972VWuqXhO7KHBlrwIgL7My MWBxwSkhJaY5d9P7Mk5Lh0Hlgw yyDTK9NZcsTHF8XrD6ZqGtKeY7 L6ZbIfk9ZAQatQdxGH4bW6Kb HXXtfrdhqwlbkEZ5DBVkFCXyiI 13mYBrSVuzGk2cx2L8n850QHUm JBMmhC81Se0yiZypIRKhmXFM eH3aavbsz9bvdmzxSzXeMIAkGW n2SDo2YOUfqGorPwRjFHW9VbT6 BSI5kWLivJ9zeMchovkbhC6y Oyc+X71obV6uLQK1NCV0bgvaIG EtwhFiMU48KF16O0AoDynrdTAj bGU+GHAhgaOgxAirSX8vEyGe v7gsg4YrUHqrY8QfYSSePLxhWf n5FLCuBJZ3oXF1uO7jKSArBJkw t1H5xAH9C9PugaVgln1pz4yv TGJhCOokU10kwXCjh6E9SIUmyM C5OZXybKbjUjKfpP04Pgj+PGNv cUqsc1YxIcqca2dfg4ivwQj3 AjQkFRXftcCbcSshIBG6n3XbLt 69S91kXYqjGOPeXRRdQRBePTRa pIsojs9wkT6sNa8+PGNvbCB3 cYE0eC7bIIFrOwR5VLodP152Bz BfkGScHfblv8etx0zlwAt1OhBj RMYdrrXfzVirIKP7i8BsFz70 A18fMCmbMFVxYAViSKXaJXAgxD sxif9tiZ5aMh3+HW0sa4aoyx21 pG81xIC+DYBwNBM3yOymODsa AQFxlL9eKRviFxI3AFFcApCwcH 15bHFpYJvcKw1lrYgaoFxqDQ8w XPUhcqxlb464YbYod1rxEBEy fSMjYZqxHLV3Y61vj3E3GKQoRH TmBLO1sUJ1pC5vaYlppmfgnXMt hWnemaPqbNutSPiaUGdxG416 IHRvcDsnPlBhdGllbnQgTmFtZT f9N8GdScf7PEAalCysMH7lsCTn FXsjGd2zdFgzeZucOT8eMWLe nkmit405XtYoq3jyEIAsyZDnAK qhURY4U21ut7L7NDXyJXKbIYW5 eXB0oT9ugKvyevorsZSozCbw mcLscPkuLXqpVQyjH373ZPKtoS kxNxOoopBfFMGojEB1BW23EP83 gCPru5W9yHZ0P9IpRBSbreow rbuczKV1SGAnHXSblR49Js5yyA ibUe2tATPsCNN2VOAgzQOqC7Cp gL8gHdIfCEWePYYfZ9DemGLs XGrzH672GTrgCdN0SNJztgIxP3 RpHDKrdYxuPeT1r8X0Zh8BX9B3 WO45VC35pZTyh8M3mLG6T0Kr RKVooxtxsfnonVW2WGRaCTMlcG 96Jq6ayVeaMm1tIIEkTCN4LWVh cYYjC0XmaS3cRpCiRCZwWTGi G7KgyCJwKZlvU350CKxgVsC9DL IxmmNvQ3HuRJGopCveOnJ8z5A8 Eu4NGOk5EB67DJ55qQPyi0C1 wEH2G0WoYUFnnnjmwkbwpZX6MX WrAOXxxZ72Yi4laWbnOf5sCJJv JUS8GKWzfOLaX7CvmE7aRsNh FIKaLGCqG4KkgRTtADlcA907LN pmRuM3SAOawhAtY1PuUMWynOqr ClZ6m0G8Wp5LPGNyPK51OHD0 wQX1UN34EZ76Q8TaXzoadDRbgD U+PHRhYmxlIHdpZHRoPScxMDAl CuAefWglGQ8uXy8bLWNvLCUe eJfuqMDkPjPgy2yuKQYqGEsmQR 2efPiuK2AaqEM8DFXil1r6Le69 A26aX0ZexIA+NUMyaIG3rDF7 wC8bRtNyCfV6PQytI983YfLqjC XtJdsnz0upk7tooMj2YaP1RVCv gwFdwFxkYEY8d4XqXo13F43c IHdpZHRoPSIxNSUiIHZhbGlnbj 3jqX9gOw8+TZYxpRT8vXF8vR4h YcIaJpF1GNloF273NtQcvUBy Wrvhn3jtv4zvzEc9CxOgEJVdzn LtwVphVYE1f0HwQj12E5YilAek y4JuRrg2rp24oQSix5B0xMT9 X1WbVRCmswznnDDirSgpKB2sBE IganmuVVGwmX0yPHAgM5e1BcYz OcR7EOfuT5VwgzI7WVAtcFTc VAvhOOV3R52bv3W3XFHtYAJpNE Z8gSA3nF1icHabdrkfrLThuDsi grCnrPsoEBgsTFclY158SQVp oGcfBUHsuM2qHZNrjYQkiQfyAH 4wNTBpbjsnPlBFTkNFLCBISUxE DLIXBK39JQ97cATji6U4xTE8 Y4UgZQLxwnvpjafhxLA4ZYKpFQ NmjQ58kJAnTIjdLf0hg0D6t490 VDRxGKPfjW01Xn9xcZagBZQs bJRCzX1oebqof0zlzusiQnFjDW XyOMf7DBa1KKNnaGywSvHbKGQ8 QjI6WWQ0qIYgyA0tpRglsgke uQ6qAqw+TAVtXoYoWJc0VYithD Q+PENcNHO2iBkgAEjgECJkpE3b RBClS4e4EfIkPrW0EOjuP8Yj RYFuihwzHx69fC1fIkAqHsP1YN roH2FpusP0FERfwEZqDRizBFJ2 X53oe0M9COCnIWNeNJT1mOT9 uN6alSbifgsxqISfeEacisWqwD ylQPmjEPrxH641SRTmrLzwDnp2 JMigSYCdHX22TC62rHXyy8J1 fYY1R9XzUIGcycrnahgzuTN1NR NlMMLefS95mGKcFOecHb3yr3P6 d272WHCyGANhdH06Mi5mqXnx YWOnsOUGmO9octzlp7iwgqdiMq PaMCKcDJu9VNx0JNIvlJyxHdDs WBG2LnG3SZL4sMVpmG8ivPqk vyqpzB5xIpg+LqPxSRujGO58LD 71kUOqa4V9eJR1H6RlCKZqxicb sarvgZL4HGHsKTHlxN14uDTk EJafJk9vz6L4c440FGCnXNSoxX 34Mc7bqMquUZFjeHWVcE5zcfdz s4hjlfamVsUqZMUeBQb7RXl9 UFKvyDngBaEgRAH1AaO3VKF1eZ AwuP2ydSgmfgyjgT1xKzm+TGFi BEIgn8Nls6ByRU15CM05W2Vh PjwvdGFibGU+PHRhYmxlIHdpZH GzJOidJDJnFpMgnTepMM1pCt0i IFEmEVZlqMgfnIBkKqMio6zg LBEqYOafCC0yfVvxF2AalLT8KJ Axa5o6Yh14W30pK5HcnTI+PGNv dIE9vKD8qM1mNfKjMhJ0FLye M639XiHscRFwDbvgj5gqp0vwyF k5JvFoKDGcqvVzjJxuZQX9a3Uq Ax80H31qWSxbLBWsRHKxJVGb UTLvsGughl9lyW2uXz5+PGNvbC A5nGJ3xY2gSuArAkH2BCdsI833 ZbOjlEItRycwB95gX4JzsTA+ WEMhCro8RQPdtXijZL6heCRnUM siFi8wHZG5OnBdJnQtCLbzS7Ga CIEbgrzjsiwdmMV1MBPeZZUl yE56Cb3wcMlnEo7zKKCyHFO3MM SamDIeV6MdmC7nLlMbJQUtRMBj V4MpdMCkPWtwT687VBxhPkV8 GBVawvVfO6JrNUKbxHgpLbG1y5 F2Uf7VmXtpwLSnNI1bLvGvLZg3 K9LsQku1JMXkyNmfDP8abZGh ITebSo7gkHqgvRqjKB1aEOXtac crm785UnXxj9wyBASqbHWpTKel PWW6B37fn2Y5HQThACYcJLP8 mAT8xA8ojYpphsfmeWKpzDgyxv QiuPaoIPocGVvqQ299TIDtkTxd LxJMCtm0G0IoSba4REBoeHsk JA6nrMBdSXcjMz3crXexwRzxLC 8mAKZtdvlvt246GsZoa8btIBJd tFVcMSorCTM8P19wb4I3QXVs KHCwEEK8cNF4cI4vfLlnyrqimF RreFqthcLrqYtrVDsvWKynH398 FQRcnQqgRo0JJyo1O2XnCws9 RPTybHfnDP1apJGrLKctGg8tyK cmxElsKX9iHQAlszhdh417JwPb i3bxPQKbzMMbPIefLDC1L36q k0S9JOMnEVYxUXA7hRO8uE3bwU lnbjogbGVmdDsgdmVydGljYWwt HAgoH100PMPutImkYjTzoHNb OjwvdGQ+WH69gi30A0WjTebqWs p2EEKwBLP7cDC6pS5qZOLaMUoj y8A0nIH0M2WrslWevu3le8jr YXBz (more content not included)... Normal [facility] Enteric Panel by PCRon 07-18 C. coli+jejuni+upsalien sis DNA ULICES+non-probe Ql (Stl) Not detected Normal [facility] Comment on above: Result Comment: Test ing was performed utilizing reverse library serials assistant (RT), polymerase chain reaction (PCR), and array [...] nulcleic acid test. Performed By: #### 4 [id number], [id number], [id number], [id number], [id number], [id number] ####[facility] [address] [place] [address] E. coli stx1+stx2 genes ULICES+non-probe Ql (Stl) Negative Normal [facility] Comment on above: Performed By: #### 4 [id number], [id number], [id number], [id number], [id number], [id number] ####[facility] [address] [place] [address] Enteric Panel by PCR Negative Normal [facility] Enteric Panel Intrl QC Pass Normal [facility] Comment on above: Result Comment: Test ing was performed utilizing reverse library serials assistant (RT), polymerase chain reaction (PCR), and array [...] 1 and 2. Performed By: #### 4 [id number], [id number], [id number], [id number], [id number], [id number] ####[facility] [address] [place] [address] Norovirus genogroup I+II RNA ULICES+non-probe Ql (Stl) Detected Abnormal [facility] Comment on above: Result Comment: Resu lts Called To [facility] for Dr. Jama By [facility] And Read Back For Confirmation On 07/18/2022 08:49:23 EDT. Performed By: #### 4 [id number], [id number], [id number], [id number], [id number], [id number] ####[facility] [address] [place] [address] Rotavirus A RNA ULICES+non-probe Ql (Stl) Not detected Normal [facility] Comment on above: Performed By: #### 4 [id number], [id number], [id number], [id number], [id number], [id number] ####[facility] [address] [place] [address] S. enterica+bongori DNA ULICES+non-probe Ql (Stl) Not detected Normal [facility] Comment on above: Result Comment: This test result should be correlated with clinical presentations and medical history by a healthcare provider to determine its clinical significance. Performed By: #### 4 [id number], [id number], [id number], [id number], 29474069, [id number] ####[facility] [address] [place] [address] Shigella species+EIEC invasion plasmid antigen H ipaH gene ULICES+non-probe Ql (Stl) Not detected Normal [facility] Comment on above: Performed By: #### 4 [id number], [id number], 83658410, [id number], 09549647, [id number] ####[facility] [address] [place] [address] V. cholerae+parahaemoly ticus+vulnificus DNA ULICES+non-probe Ql (Stl) Not detected Normal [facility] Comment on above: Performed By: #### 4 [id number], 81244644, 67602768, [id number], 44531689, [id number] ####[facility] [address] [place] [address] Y. enterocolitica DNA ULICES+non-probe Ql (Stl) Not detected Normal [facility] Comment on above: Performed By: #### 4 [id number], 09147815, 55984935, [id number], [id number], 10440183 ####[facility] [address] [place] [address] C. diff by PCRon 07-17-2022 Clostridium difficile by PCR see comment Invalid Interpretation Code [facility] Comment on above: Result Comment: Unab le [...] its clinical significance. Performed By: #### 4 [id number], 12852331, 12014300, [id number], 12335370, [id number] ####[facility] [address] [place] [address] Fecal WBC Lactoferrinon 07-02 Fecal WBC Lactoferrin Positive Abnormal Negative [facility] Comment on above: Result Comment: The semi-quantitative detection of elevated levels of fecal lactoferrin is a marker for fecal leukocytes and an indication of intestinal inflammation. Performed By: #### 4 [id number], [id number], 85352819, [id number], [id number], [id number] ####[facility] [address] [place] [address] Consent for Treatmenton 07-02 Consent for Treatment [id number]:127 Normal [facility] Gastroenterology Office/Clin ic Noteon 07-15-2022 Gastroenterology Office/Clinic Note Chief Complaint f/u ER- abd pain, diarrhea and vomiting HPI Staff This is a 76 year old female who presents today for a referral by Sue for abnormal radiology testing. Patient seen in [place] ER 01/2022 for complaints of diarrhea, abdominal pain and nausea.- CT and labs completed History of Present Illness Sylvia presents today for abdominal pain, diarrhea, and vomiting. She was recently seen in the [place] emergency room with abdominal pain, diarrhea, and vomiting. She notes that she had a heart transplant in [place] in 2017. Afterwards she experienced diarrhea which [...] She was prescribed Creon 24 mg at [facility] in 2017, due to being [...] patient had a recent CT scan at [facility] that showed a small lesion in [...] by h (more content not included)... Normal [facility] Comment on above: Result Comment: Elec tronically [...] insufficiency Pancreatic lesion Valvular heart disease Normal [facility] 07-05-2022 CNPN Telephone (JULIAN [facility] -- SYLVIA HERRERA ([id number]) 1945 F Date Time Provider Department 07/05/22 SHO CROWLEY [facility] During your visit today, we recorded the following information about you: Sho Crowley APRN.SHOPPER'S AIDE 07/05/2022 10:48 AM Signed 07/03/22 labs: FK: [...] care with another team. Sho Crowley APRN, SHOPPER'S AIDE Pager: [phone] July 05, 2022 10:42 AM Post Heart [...] transplant. No Dr Ellerp: Rfl: TACROLIMUS/[id number] BL [[id number]] Order #: [id number] FUTURE Prescriptions as of 07/05/2022 - tacrolimus [...] mg by mouth three times daily. - xyibod-tdtuzrjd-wiudhuu (CREON) 24,000-76,000 -120,000 unit cpDR Take 3 [...] 09/02/2019 A (more content not included)... Normal [facility] Rojas BOX TEST SENT OUTon 07-03-20 SENT TO REF LAB 07/03/2022 Normal [facility] Comment on above: Performed By: #### E RANDALL PINON #### [facility] [address] [address] [address] Hardeep Rivera CBC AUTO DIFFon 07-03-2022 BASO # 0.0 103/ul Normal 0.0-0.1 [facility] Comment on above: Performed By: #### C BC #### [facility] [address] [address] [address] Hardeep Rivera Basophils/100 WBC (Bld) 0.3 % Normal 0.2-2.0 [facility] Comment on above: Performed By: #### C BC #### [facility] [address] [address] [address] Hardeep Rivera EO # 0.1 103/ul Normal 0.0-0.7 [facility] Comment on above: Performed By: #### C BC #### [facility] [address] [address] [address] Hardeep Rivera Eosinophils/100 WBC (Bld) 0.9 % Normal 0.9-7.0 [facility] Comment on above: Performed By: #### C BC #### [facility] [address] [place] [address] Dr. Hardeep Rivera Erythrocyte distribution width (RBC) [Ratio] 12.2 % Normal 11.0-15.0 [facility] Comment on above: Performed By: #### C BC #### [facility] [address] [place] [address] Dr. Hardeep Rivera Hematocrit (Bld) [Volume fraction] 42.3 % Normal 36.0-48.0 [facility] Comment on above: Performed By: #### C BC #### [facility] [address] [place] [address] Dr. Hardeep Rivera Hemoglobin (Bld) [Mass/Vol] 14.0 g/dL Normal 12.0-16.0 [facility] Comment on above: Performed By: #### C BC #### [facility] [address] [place] [address] Dr. Hardeep Rivera IG # 0.04 10e3/ul Critically high 0.00-0.03 [facility] Comment on above: Performed By: #### C BC #### [facility] [address] [place] [address] Dr. Hardeep Rivera IG % 0.5 % Normal 0.0-0.5 [facility] Comment on above: Performed By: #### C BC #### [facility] [address] [place] [address] Dr. Hardeep Rivera LYMPH # 0.8 103/ul Critically low 1.2-3.8 [facility] Comment on above: Performed By: #### C BC #### [facility] [address] [place] [address] Dr. Hardeep Rivera Lymphocytes/100 WBC (Bld) 10.9 % Critically low 20.5-60.0 [facility] Comment on above: Performed By: #### C BC #### [facility] [address] [place] [address] Dr. Hardeep Rivera MANUAL DIFF REQ NO Normal [facility] Comment on above: Performed By: #### C BC #### [facility] [address] [place] [address] Dr. Hardeep Rivera MCH (RBC) [Entitic mass] 29.7 pg Normal 26.7-34.0 [facility] Comment on above: Performed By: #### C BC #### [facility] [address] [place] [address] Dr. Hardeep Rivera MCHC (RBC) [Mass/Vol] 33.1 g/dL Normal 29.9-35.2 [facility] Comment on above: Performed By: #### C BC #### [facility] [address] [place] [address] Dr. Hardeep Rivera MCV (RBC) [Entitic vol] 89.8 fL Normal 81.0-99.0 [facility] Comment on above: Performed By: #### C BC #### [facility] [address] [place] [address] Dr. Hardeep Rivera MONO # 0.9 103/ul Critically high 0.3-0.8 [facility] Comment on above: Performed By: #### C BC #### [facility] [address] [place] [address] Dr. Hardeep Rivera Monocytes/100 WBC (Bld) 11.1 % Normal 1.7-12.0 [facility] Comment on above: Performed By: #### C BC #### [facility] [address] [place] [address] Dr. Hardeep Rivera NEUT # 5.8 103/ul Normal 1.4-6.5 [facility] Comment on above: Performed By: #### C BC #### [facility] [address] [place] [address] Dr. Hardeep Rivera Neutrophils/100 WBC (Bld) 76.3 % Critically high 43.0-75.0 [facility] Comment on above: Performed By: #### C BC #### [facility] [address] [place] [address] Dr. Hardeep Rivera Platelet mean volume (Bld) [Entitic vol] 9.5 fL Normal 9.5-13.5 [facility] Comment on above: Performed By: #### C BC #### [facility] [address] [place] [address] Dr. Hardeep Rivera PLT 191 103/ul Normal 150-450 [facility] Comment on above: Performed By: #### C BC #### [facility] [address] [address] [address] Hardeep Rivera RBC 4.71 106/ul Normal 4.20-5.40 [facility] Comment on above: Performed By: #### C BC #### [facility] [address] [place] [address] Dr. Hardeep Rivera WBC 7.6 103/ul Normal 4.0-11.0 [facility] Comment on above: Performed By: #### C BC #### [facility] [address] [place] [address] Dr. Hardeep Rivera CNPMary Kay 07-03-2022 CNPN Telephone (JULIAN [facility] -- SYLVIA HERRERA ([id number]) 1945 F Date Time Provider Department 07/03/22 [...] mg by mouth three times daily. - zelufv-vzhcmpmq-rhgrteq (CREON) 24,000-76,000 -120,000 unit cpDR Take 3 [...] Status:Closed by LINDEN WEEMS on 07/03/22 Normal [facility] PROF CHEM 8 (BAS METB)on Anion gap [Moles/Vol] 12.9 mmol/L Normal [facility] Comment on above: Performed By: #### Deedee PINON UMICRO #### [facility] [address] [place] [address] Dr. Hardeep Rivera Calcium [Mass/Vol] 9.0 mg/dL Normal 8.5-10.1 [facility] Comment on above: Performed By: #### Deedee PINON UMICRO #### [facility] [address] [place] [address] Dr. Hardeep Rivera Chloride [Moles/Vol] 98 mmol/L Normal 98-107 [facility] Comment on above: Performed By: #### Deedee PINON UMICRO #### [facility] [address] [address] [address] Hardeep Rivera CO2 [Moles/Vol] 28.1 mmol/L Normal 21.0-32.0 [facility] Comment on above: Performed By: #### Deedee PINON UMICRO #### [facility] [address] [address] [address] Hardeep Rivera Creatinine [Mass/Vol] 1.64 mg/dL Critically high 0.55-1.02 [facility] Comment on above: Performed By: #### Deedee PINON, UMICRO #### [facility] [address] [place] [address] Dr. Hardeep Rivera EGFR-AF ICELANDIC 37 mL/min/1.73m2 Critically low >=60 [facility] Comment on above: Performed By: #### RANDALL OLSON #### [facility] [address] [place] [address] Dr. Hardeep Rivera EGFR-NON AF ICELANDIC 30 mL/min/1.73m2 Critically low >=60 [facility] Comment on above: Performed By: #### HARI OLSONRO #### [facility] [address] [place] [address] Dr. Hardeep Rivera Glucose [Mass/Vol] 114 mg/dL Critically high 74-106 [facility] Comment on above: Performed By: #### HARI OLSONRO #### [facility] [address] [place] [address] Dr. Hardeep Rivera Potassium [Moles/Vol] 4.0 mmol/L Normal 3.5-5.1 [facility] Comment on above: Performed By: #### HARI OLSONRO #### [facility] [address] [place] [address] Dr. Hardeep Rivera Sodium [Moles/Vol] 135 mmol/L Critically low 136-145 [facility] Comment on above: Performed By: #### HARI OLSONRO #### [facility] [address] [place] [address] Dr. Hardeep Rivera Urea nitrogen [Mass/Vol] 24.0 mg/dL Critically high 7.0-18.0 [facility] Comment on above: Performed By: #### HARI OLSONRO #### [facility] [address] [place] [address] Dr. Hardeep Rivera Urea nitrogen/Creatinine [Mass ratio] 14.6 mg/mg Normal [facility] Comment on above: Performed By: #### HARI OLSONRO #### [facility] [address] [place] [address] Dr. Hardeep Rivera [facility] Tacrolimus (Bld) [Mass/Vol] 12.4 ng/mL Normal 5.0-20.0 [facility] Comment on above: Order Comment: Speci [...] Test performed by chemiluminescent immunoassay using [employer]. Performed By: #### 1 1253-2 ####[facility] [id number] [place] [address] [place] MG MAMM SCREEN 3D TRISHA CADon 05-28-2022 MG MAMM SCREEN 3D TRISHA CAD Patient: SYLVIA HERRERA Exam Date: 05/28/2022 : 1945 Gender:F Ordering : DR TAO ROONEY . Admission #: [id number] Family : Order #: [id number] CLICK HERE TO VIEW EXAM RADIOLOGY REPORT [...] Treatments None Family Cancers None LOCATION: [facility] BREAST COMPOSITION: Heterogeneously dense,which may obscure [...] MD on 05/28/2022 at 10:20 Normal [facility] Physician Referralon 022 Physician Referral [phone] [id number] [facility] 05-08-2022 ODETTEN Telephone (CARD MARICEL DEXTER) -- SVETLANASYLVIA BELL ([id number]) 1945 F Date Time Provider Department 05/08/22 LOIDA MATHIAS CARD [facility] During your visit today, we recorded the following information about you: Linden Weems 05/08/2022 11:50 AM Signed Patient had labs drawn 05/07/22, uploaded to scanned docs. Linden Weems Administrative [employer] Legal Assistant Loida Mathias APRN.CNP 05/08/2022 3:21 PM Signed [...] transplant. No Dr Ellerp: Rfl: [id number] BL [[id number]] Order #: [id number] FUTURE Prescriptions as of 05/08/2022 - tacrolimus [...] mg by mouth three times daily. - vbmrnj-vkqrhtzc-tjnoajv (CREON) 24,000-76,000 -120,000 unit cpDR Take 3 [...] 05/19/2014 [facility] (more content not included)... Normal [facility]jas BOX TEST SENT OUTon 05-07-20 22 SENT TO REF LAB 05/07/2022 Normal [facility] Comment on above: Performed By: #### E RUR, UMICRO #### [facility] [address] [place] [address] Dr. Hardeep Rivera CBC AUTO DIFFon 05-07-2022 BASO # 0.0 103/ul Normal 0.0-0.1 [facility] Comment on above: Performed By: #### E RUR, UMICRO #### [facility] [address] [place] [address] Dr. Hardeep Rivera Basophils/100 WBC (Bld) 0.4 % Normal 0.2-2.0 [facility] Comment on above: Performed By: #### Deedee PINON, UMICRO #### [facility] [address] [address] [address] Hardeep Rivera EO # 0.1 103/ul Normal 0.0-0.7 [facility] Comment on above: Performed By: #### Deedee PINON, UMICRO #### [facility] [address] [address] [address] Hardeep Rivera Eosinophils/100 WBC (Bld) 1.0 % Normal 0.9-7.0 [facility] Comment on above: Performed By: #### E RUR, UMICRO #### [facility] [address] [address] [address] Hardeep Rivera Erythrocyte distribution width (RBC) [Ratio] 12.6 % Normal 11.0-15.0 [facility] Comment on above: Performed By: #### E RUR, UMICRO #### [facility] [address] [place] [address] Dr. Hardeep Rivera Hematocrit (Bld) [Volume fraction] 44.0 % Normal 36.0-48.0 [facility] Comment on above: Performed By: #### HARI OLSONRO #### [facility] [address] [place] [address] Dr. Hardeep Rivera Hemoglobin (Bld) [Mass/Vol] 14.0 g/dL Normal 12.0-16.0 [facility] [facility] Comment on above: Performed By: #### HARI OLSONRO #### [facility] [address] [place] [address] Dr. Hardeep Rivera IG # 0.02 10e3/ul Normal 0.00-0.03 [facility] Comment on above: Performed By: #### HARI OLSONRO #### [facility] [address] [place] [address] Dr. Hardeep Rivera IG % 0.3 % Normal 0.0-0.5 [facility] Comment on above: Performed By: #### HARI OLSONRO #### [facility] [address] [place] [address] Dr. Hardeep Rivera LYMPH # 0.6 103/ul Critically low 1.2-3.8 The [facility] Comment on above: Performed By: #### HARI OLSONRO #### [facility] [address] [place] [address] Dr. Hardeep Rivera Lymphocytes/100 WBC (Bld) 8.2 % Critically low 20.5-60.0 The [facility] Comment on above: Performed By: #### HARI OLSONRO #### [facility] [address] [place] [address] Dr. Hardeep Rivera MANUAL DIFF REQ NO Normal The [facility] Comment on above: Performed By: #### HARI OLSONRO #### [facility] [address] [place] [address] Dr. Hardeep Rivera MCH (RBC) [Entitic mass] 29.4 pg Normal 26.7-34.0 [facility] Comment on above: Performed By: #### HARI OLSONRO #### [facility] [address] [place], [place] [id number] Dr. Hardeep Rivera MCHC (RBC) [Mass/Vol] 31.8 g/dL Normal 29.9-35.2 [facility] Comment on above: Performed By: #### Deedee PINON, UMICRO #### [facility] [address] [place] [address] Dr. Hardeep Rivera MCV (RBC) [Entitic vol] 92.2 fL Normal 81.0-99.0 [facility] Comment on above: Performed By: #### E KATHRIN, UMICRO #### [facility] [address] [place] [address] Dr. Hardeep Rivera MONO # 0.8 103/ul Normal 0.3-0.8 [facility] Comment on above: Performed By: #### Deedee PINON, UMICRO #### [facility] [address] [place] [address] Dr. Hardeep Rivera Monocytes/100 WBC (Bld) 9.6 % Normal 1.7-12.0 [facility] Comment on above: Performed By: #### Deedee PINON, UMICRO #### [facility] [address] [place] [address] Dr. Hardeep Rivera NEUT # 6.3 103/ul Normal 1.4-6.5 [facility] Comment on above: Performed By: #### Deedee PINON, UMICRO #### [facility] [address] [place] [address] Dr. Hardeep Rivera Neutrophils/100 WBC (Bld) 80.5 % Critically high 43.0-75.0 [facility] Comment on above: Performed By: #### Deedee PINON, UMICRO #### [facility] [address] [place] [address] Dr. Hardeep Rivera Platelet mean volume (Bld) [Entitic vol] 10.1 fL Normal 9.5-13.5 [facility] Comment on above: Performed By: #### E KATHRIN, UMICRO #### [facility] [address] [place] [address] Dr. Hardeep Rivera PLT 188 103/ul Normal 150-450 [facility] Comment on above: Performed By: #### RANDALL OLSON #### [facility] [address] [address] [address] Hardeep Rivera RBC 4.77 106/ul Normal 4.20-5.40 [facility] Comment on above: Performed By: #### HARI OLSONRO #### [facility] [address] [address] [address] Hardeep Rivera WBC 7.8 103/ul Normal 4.0-11.0 [facility] Comment on above: Performed By: #### HARI OLSONRO #### [facility] [address] [place] [address] Dr. Hardeep Rviera PROF CHEM 8 (BAS METB)on Anion gap [Moles/Vol] 11.9 mmol/L Normal [facility] Comment on above: Performed By: #### RANDALL OLSON #### [facility] [address] [place] [address] Dr. Hardeep Rivera Calcium [Mass/Vol] 8.7 mg/dL Normal 8.5-10.1 [facility] Comment on above: Performed By: #### RANDALL OLSON #### [facility] [address] [place] [address] Dr. Hardeep Rivera Chloride [Moles/Vol] 99 mmol/L Normal 98-107 [facility] Comment on above: Performed By: #### HARI OLSONRO #### [facility] [address] [place] [address] Dr. Hardeep Rivera CO2 [Moles/Vol] 27.1 mmol/L Normal 21.0-32.0 The [facility] Comment on above: Performed By: #### HARI OLSONRO #### [facility] [address] [place] [address] Dr. Hardeep Rivera Creatinine [Mass/Vol] 1.62 mg/dL Critically high 0.55-1.02 [facility] Comment on above: Performed By: #### HARI OLSONRO #### [facility] [address] [address] [address] Hardeep Rivera EGFR-AF ICELANDIC 37 mL/min/1.73m2 Critically low >=60 [facility] Comment on above: Performed By: #### Deedee PINON UMICRO #### [facility] [address] [address] [address] Hardeep Rivera EGFR-NON AF ICELANDIC 31 mL/min/1.73m2 Critically low >=60 [facility] Comment on above: Performed By: #### E KATHRIN, UMICRO #### [facility] [address] [address] [address] Hardeep Rivera Glucose [Mass/Vol] 73 mg/dL Critically low 74-106 [facility] Comment on above: Performed By: #### Deedee PINON, UMICRO #### [facility] [address] [place] [address] Dr. Hardeep Rivera Potassium [Moles/Vol] 4.0 mmol/L Normal 3.5-5.1 [facility] Comment on above: Performed By: #### Deedee PINON UMICRO #### [facility] [address] [place] [address] Dr. Hardeep Rivera Sodium [Moles/Vol] 134 mmol/L Critically low 136-145 [facility] Comment on above: Performed By: #### Deedee PINON, UMICRO #### [facility] [address] [place] [address] Dr. Hardeep Rivera Urea nitrogen [Mass/Vol] 33.0 mg/dL Critically high 7.0-18.0 [facility] Comment on above: Performed By: #### Deedee PINON UMICRO #### [facility] [address] [place] [address] Dr. Hardeep Rivera Urea nitrogen/Creatinine [Mass ratio] 20.4 mg/mg Normal [facility] Comment on above: Performed By: #### Deedee PINON, UMICRO #### [facility] [address] [place] [address] Dr. Hardeep Rivera TACROLIMUS/FK-506 BLon 05-07 Tacrolimus (Bld) [Mass/Vol] 3.4 ng/mL Low 5.0-20.0 [facility] Comment on above: Order Comment: Speci [...] situation. Test performed by chemiluminescent immunoassay using [employer]. Performed By: #### F K506 ####[facility] [id number] [address] OF [facility] 05-03-2022 ODETTEN Telephone (JULIAN CONNELLY ISACC) -- SYLVIA HERRERA ([id number]) 1945 F Date Time Provider Department 05/03/22 SHO CROWLEY [facility] During your visit today, we recorded the following information about you: Sho Crowley APRN.SHOPPER'S AIDE 05/03/2022 2:58 PM Signed received phone call from [facility] Cardiology group requesting patient's Tacrolimus levels from 04/24. Faxed results to [phone]. Allergies As of Date: 05/03/2022 Noted Allergy [...] mg by mouth three times daily. - upqkzh-pdunzmqz-uugfpyd (CREON) 24,000-76,000 -120,000 unit cpDR Take 3 [...] Status:Closed by SHO CROWLEY on 05/03/[address] [facility] BOX TEST SENT OUTon 04-24-20 22 SENT TO REF LAB 04/24/2022 Normal [facility] Comment on above: Performed By: #### RANDALL OLSON #### [facility] [address] [place] [address] Dr. [facility]22 ODETTEN Telephone (CARD CHF ISACC) -- SYLVIA HERRERA ([id number]) 1945 F Date Time Provider Department 04/24/22 LOIDA MATHIAS CHF ISACC During your visit today, we recorded the following information about you: Linden Weems 04/24/2022 1:31 PM Signed Patient left message that she had labs drawn today. Linden Weems Administrative Real Estate Legal Assistant Post Heart Transplant J3-4 Loida Mathias APRN.ODETTE 04/26/2022 11:25 AM Signed Received FK level 4.5, drawn 04/24 My chart message sent to patient. Advised to remain on current dose and keep our office updated re: her plans for post transplant follow up. Loida Mathias APRN.SHOPPER'S AIDE April 26, 2022 11:24 AM Component Latest [...] mg by mouth three times daily. - igyvld-abztgtwi-gsphlvj (CREON) 24,000-76,000 -120,000 unit cpDR Take 3 [...] Status:Closed by LINDEN WEEMS on 04/24/22 Normal [facility] TACROLIMUS/FK-506 BLon 04-24 Tacrolimus (Bld) [Mass/Vol] 4.5 ng/mL Low 5.0-20.0 [facility] Comment on above: Order Comment: Speci [...] Test performed by chemiluminescent immunoassay using [employer]. Performed By: #### F K506 ####[facility] [id number] [place] [address] [place] FK506 (TACROLIMUS) WHOLE BLO ODon 04-11-2022 Tacrolimus (FK506), Blood 7.3 ng/mL Normal 2.0-20.0 The [facility] Comment on above: Result Comment: Trou gh (immediately following transplant) 15.0 . Trough (steady state, 2 weeks or more after transplant): 3.0 - 8.0 . Performed by LC-MS/MS technology. Performed By: #### HARI OLSONRO #### [facility] [address] [place] [address] Dr. Hardeep Rivera BOX TEST SENT OUTon 04-09-20 22 SENT TO REF LAB 04/09/2022 Normal [facility] Comment on above: Performed By: #### HARI OLSONRO #### [facility] [address] [place] [address] Dr. Hardeep Rivera CBC AUTO DIFFon 04-09-2022 BASO # 0.0 103/ul Normal 0.0-0.1 [facility] Comment on above: Performed By: #### HARI OLSONRO #### [facility] [address] [place] [address] Dr. Hardeep Rivera Basophils/100 WBC (Bld) 0.1 % Critically low 0.2-2.0 [facility] Comment on above: Performed By: #### HARI OLSONRO #### [facility] [address] [place] [address] Dr. Hardeep Rivera EO # 0.1 103/ul Normal 0.0-0.7 [facility] Comment on above: Performed By: #### RANDALL OLSON #### [facility] [address] [place] [address] Dr. Hardeep Rivera Eosinophils/100 WBC (Bld) 1.2 % Normal 0.9-7.0 [facility] Comment on above: Performed By: #### HARI OLSONRO #### [facility] [address] [place] [address] Dr. Hardeep Rivera Erythrocyte distribution width (RBC) [Ratio] 12.6 % Normal 11.0-15.0 [facility] Comment on above: Performed By: #### HARI OLSONRO #### [facility] [address] [place] [address] Dr. Hardeep Rivera Hematocrit (Bld) [Volume fraction] 44.1 % Normal 36.0-48.0 [facility] Comment on above: Performed By: #### E RUR, UMICRO #### [facility] [address] [place] [address] Dr. Hardeep Rivera Hemoglobin (Bld) [Mass/Vol] 14.1 g/dL Normal 12.0-16.0 [facility] Comment on above: Performed By: #### E RUR, UMICRO #### [facility] [address] [place] [address] Dr. Hardeep Rivera IG # 0.02 10e3/ul Normal 0.00-0.03 [facility] Comment on above: Performed By: #### E RUTrish, UMICRO #### [facility] [address] [place] [address] Dr. Hardeep Rivera IG % 0.3 % Normal 0.0-0.5 [facility] Comment on above: Performed By: #### E KATHRIN UMICRO #### [facility] [address] [place] [address] Dr. Hardeep Rivera LYMPH # 0.7 103/ul Critically low 1.2-3.8 [facility] Comment on above: Performed By: #### Deedee PINON UMICRO #### [facility] [address] [place] [address] Dr. Hardeep Rivera Lymphocytes/100 WBC (Bld) 10.8 % Critically low 20.5-60.0 [facility] Comment on above: Performed By: #### Deedee PINON UMICRO #### [facility] [address] [place] [address] Dr. Hardeep Rivera MANUAL DIFF REQ NO Normal [facility] Comment on above: Performed By: #### E RUTrish, UMICRO #### [facility] [address] [place] [address] Dr. Hardeep Rivera MCH (RBC) [Entitic mass] 29.3 pg Normal 26.7-34.0 [facility] Comment on above: Performed By: #### E RUTrish, UMICRO #### [facility] [address] [place] [address] Dr. Hardeep Rivera MCHC (RBC) [Mass/Vol] 32.0 g/dL Normal 29.9-35.2 [facility] Comment on above: Performed By: #### RANDALL OLSON #### [facility] [address] [place] [address] Dr. Hardeep Rivera MCV (RBC) [Entitic vol] 91.7 fL Normal 81.0-99.0 [facility] Comment on above: Performed By: #### HARI OLSONRO #### [facility] [address] [place] [address] Dr. Hardeep Rivera MONO # 0.7 103/ul Normal 0.3-0.8 [facility] Comment on above: Performed By: #### HARI OLSONRO #### [facility] [address] [place] [address] Dr. Hardeep Rivera Monocytes/100 WBC (Bld) 10.8 % Normal 1.7-12.0 [facility] Comment on above: Performed By: #### RANDALL OLSON #### [facility] [address] [place] [address] Dr. Hardeep Rivera NEUT # 5.2 103/ul Normal 1.4-6.5 [facility] Comment on above: Performed By: #### RANDALL OLSON #### [facility] [address] [place] [address] Dr. Hardeep Rivera Neutrophils/100 WBC (Bld) 76.8 % Critically high 43.0-75.0 [facility] Comment on above: Performed By: #### HARI OLSONRO #### [facility] [address] [place] [address] Dr. Hardeep Rivera Platelet mean volume (Bld) [Entitic vol] 9.8 fL Normal 9.5-13.5 [facility] Comment on above: Performed By: #### HARI OLSONRO #### [facility] [address] [place] [address] Dr. Hardeep Rivera PLT 200 103/ul Normal 150-450 [facility] Comment on above: Performed By: #### HARI OLSONRO #### [facility] [address] [place] [address] Dr. Hardeep Rivera RBC 4.81 106/ul Normal 4.20-5.40 [facility] Comment on above: Performed By: #### Deedee PINON UMICRO #### [facility] [address] [place] [address] Dr. Hardeep Rivera WBC 6.7 103/ul Normal 4.0-11.0 [facility] Comment on above: Performed By: #### Deedee PINON UMICRO #### [facility] [address] [place] [address] Dr. Hardeep Rivera PROF CHEM 8 (BAS METB)on Anion gap [Moles/Vol] 9.1 mmol/L Normal [facility] Comment on above: Performed By: #### Deedee PINON UMICRO #### [facility] [address] [place] [address] Dr. Hardeep Rivera Calcium [Mass/Vol] 8.3 mg/dL Critically low 8.5-10.1 [facility] Comment on above: Performed By: #### Deedee PINON UMICRO #### [facility] [address] [place] [address] Dr. Hardeep Rivera Chloride [Moles/Vol] 100 mmol/L Normal 98-107 [facility] Comment on above: Performed By: #### Deedee PINON UMICRO #### [facility] [address] [place] [address] Dr. Hardeep Rivera CO2 [Moles/Vol] 28.1 mmol/L Normal 21.0-32.0 [facility] Comment on above: Performed By: #### Deedee PINON UMICRO #### [facility] [address] [place] [address] Dr. Hardeep Rivera Creatinine [Mass/Vol] 1.54 mg/dL Critically high 0.55-1.02 [facility] Comment on above: Performed By: #### Deedee PINON UMICRO #### [facility] [address] [place] [address] Dr. Hardeep Rivera EGFR-AF ICELANDIC 40 mL/min/1.73m2 Critically low >=60 [facility] Comment on above: Performed By: #### RANDALL OLSON #### [facility] [address] [place] [address] Dr. Hardeep Rivera EGFR-NON AF ICELANDIC 33 mL/min/1.73m2 Critically low >=60 [facility] Comment on above: Performed By: #### HARI OLSONRO #### [facility] [address] [place] [address] Dr. Hardeep Rivera Glucose [Mass/Vol] 122 mg/dL Critically high 74-106 [facility] Comment on above: Performed By: #### HARI OLSONRO #### [facility] [address] [place] [address] Dr. Hardeep Rivera Potassium [Moles/Vol] 4.2 mmol/L Normal 3.5-5.1 [facility] Comment on above: Performed By: #### HARI OLSONRO #### [facility] [address] [place] [address] Dr. Hardeep Rivera Sodium [Moles/Vol] 133 mmol/L Critically low 136-145 [facility] Comment on above: Performed By: #### HARI OLSONRO #### [facility] [address] [place] [address] Dr. Hardeep Rivera Urea nitrogen [Mass/Vol] 28.0 mg/dL Critically high 7.0-18.0 [facility] Comment on above: Performed By: #### HARI OLSONRO #### [facility] [address] [place] [address] Dr. Hardeep Rivera Urea nitrogen/Creatinine [Mass ratio] 18.2 mg/mg Normal [facility] Comment on above: Performed By: #### HARI OLSONRO #### [facility] [address] [place] [address] Dr. Hardeep Rivera TACROLIMUS/FK-506 BLon 04-09 Tacrolimus (Bld) [Mass/Vol] 9.9 ng/mL Normal 5.0-20.0 [facility] Comment on above: Order Comment: Víctor [...] Test performed by chemiluminescent immunoassay using [employer]. Performed By: #### F K506 ####[facility] [id number] [address] Eduardo 10-10-2021 NIK Telephone (JULIAN [facility]) -- SYLVIA HERRERA ([id number]) 1945 F Date Time Provider Department 10/10/21 LOIDA MATHIAS [facility] During your visit today, we recorded the following information about you: Linden Weems 10/10/2021 11:57 AM Signed Patient had labs drawn today Linden Weems Administrative Real Estate Legal Assistant Linden Weems 10/11/2021 10:57 AM Signed Labs uploaded to scanned docs. Linden Weems Administrative Real Estate Legal Assistant Loida Mathias APRN.CNP 10/12/2021 12:28 PM Signed Received outside labs drawn 10/10 -- FK 10.1 Cr 1.4 BUN 24 K 4.8 FBS 105 WBC 8300 Hgb 13 Hct 42 Plts 209 Called and left message for patient. Advised if this was a good 12 hr trough, to reduce Tacrolimus to 0.5 mg BID. Repeat labs in 2 weeks. Loida Mathias APRN.SHOPPER'S AIDE October 12, 2021 12:27 PM Loida Mathias [...] by transplant. No Dr Caldera: Rfl: TACROLIMUS/FK-506 [[id number]] Order #: [id number] FUTURE Prescriptions as of 10/12/2021 - tacrolimus [...] mg by mouth three times daily. - lhmkfv-paklggux-kdnslle (CREON) 24,000-76,000 -120,000 unit cpDR Take 3 [...] [J18.9] 11/29 (more content not included)... Normal [facility] Tacrolimus / [id number] Tacrolimus / FK506 10.1 ng/mL Normal 5.0-20.0 [facility] Comment on above: Result Comment: Thes e [...] Test performed by chemiluminescent immunoassay using [employer]. Performed By: #### F K506 ####[facility] [id number] [place], [place] [id number] Eduardo 09-13-2021 CNPN Telephone (CARD MARICEL DEXTER) -- SYLVIA HERRERA ([id number]) 1945 F Date Time Provider Department 09/13/21 ARELIS NEWSOME CARD CHF ISACC During your visit today, we recorded the following information about you: Linden Weems 09/13/2021 2:52 PM Signed S/w pt, due to transportation and financial constraints she is unable to come to [place] for appointments. Patient is working with her case checker to establish care with a local labor relations representative (had previously been followed by one in [place]).Dr Rice has agreed and plan going forward will be to do a phone visit with pt on 10/03 and she will follow up in the interim with her local Technical Clerk. Sending pt mailers and lab order, she will get those done as soon as she can. Linden Weems Administrative Real Estate Legal Assistant Allergies As of Date: 09/13/2021 Noted Allergy [...] mg by mouth three times daily. - yrnvja-eozyuxgo-xzvqbgz (CREON) 24,000-76,000 -120,000 unit cpDR Take 3 [...] Encounter Status:Closed by LINDEN WEEMS on 09/13/21 [facility] OBSOLETEon 09-12-2021 OBSOLETE Refill (CARD [facility] IS[facility] ) -- SYLVIA HERRERA ([id number]) 1945 F Date Time Provider Department 09/12/21 SANDRITA GUERRERO CARD [facility] During your visit today, we recorded [...] mg by mouth three times daily. - fclwfb-hfxvdazn-hmrdexi (CREON) 24,000-76,000 -120,000 unit cpDR Take 3 [...] [R10.31] 04/29/2014 09/02/2019 Diabetes mellitus, type II ([facility]) [E11.9] 04/29/2014 DREW (acute kidney injury) ([facility]) [N17.9] 05/06/2014 05/19/2014 Orthostasis [I95.1] [...] Status:Closed by SANDRITA GUERRERO on 09/12/21 Normal [facility] Vital Signs Date Time Vital Sign Value Performing Clinician Dami charles 04-08-2023 06:45-0400 Diastolic blood pressure 76 mm[Hg] [facility] 04-08-2023 06:45-0400 Heart rate 59 /min [facility] 04-08-2023 06:45-0400 Hourly Rounding [facility] 04-08-2023 06:45-0400 Mean blood pressure 106 mm[Hg] [facility] 04-08-2023 06:45-0400 Respiratory rate 18 /min [facility] 04-08-2023 06:45-0400 SaO2% (BldA) [Mass fraction] 96 % Richard Roby [facility] 04-08-2023 06:45-0400 Systolic blood pressure 167 mm[Hg] Richard Roby [facility] 04-08-2023 05:30-0400 Diastolic blood pressure 88 mm[Hg] Richard Roby [facility] 04-08-2023 05:30-0400 Heart rate 52 /min Richard Roby [facility] 04-08-2023 05:30-0400 Hourly Rounding Richard Roby [facility] 04-08-2023 05:30-0400 Mean blood pressure 114 mm[Hg] Richard Roby [facility] 04-08-2023 05:30-0400 Respiratory rate 18 /min Richrad Roby [facility] 04-08-2023 05:30-0400 SaO2% (BldA) [Mass fraction] 95 % Richard Roby [facility] 04-08-2023 05:30-0400 Systolic blood pressure 167 mm[Hg] Richard Roby [facility] 04-08-2023 04:39-0400 Diastolic blood pressure 90 mm[Hg] Richard Roby [facility] 04-08-2023 04:39-0400 Heart rate 56 /min Richard Roby [facility] 04-08-2023 04:39-0400 Hourly Rounding Richard Roby [facility] 04-08-2023 04:39-0400 Mean blood pressure 112 mm[Hg] Richard Roby [facility] 04-08-2023 04:39-0400 Respiratory rate 17 /min Richard Roby [facility] 04-08-2023 04:39-0400 SaO2% (BldA) [Mass fraction] 94 % Richard Roby [facility] 04-08-2023 04:39-0400 Systolic blood pressure 155 mm[Hg] Richard Roby [facility] 04-07-2023 21:48-0400 Respiratory rate 18 /min Richard Roby [facility] 04-07-2023 21:19-0400 Body temperature 98.06 [degF] Richard Ca [facility] 04-07-2023 21:19-0400 Heart rate 65 /min Richard Roby [facility] 04-07-2023 21:19-0400 Respiratory rate 19 /min [facility] Roby [facility] Encounters Encounter Date Encounter Type Care Provider Facility Start: 07-01-2024 End: 07-01-2024 ambulatory [facility] Start: 06-18-2024 End: 06-18-2024 ambulatory NON STAFF [facility] Work Phone: Start: 06-18-2024 End: 06-18-2024 Departed Referred [facility] Start: 02-03-2024 End: 02-03-2024 ambulatory [facility] Start: 11-12-2023 End: 11-12-2023 ambulatory [facility] Start: 08-07-2023 End: 08-07-2023 ambulatory [facility] Start: 04-07-2023 End: 04-08-2023 Emergency department patient visit Richard Ca Facility:[facility] [place] Start: 04-07-2023 End: 04-08-2023 Emergency department patient visit Richard Ca [facility] Start: 03-05-2023 End: 03-05-2023 ambulatory SCOT [...] ROGERS Facility:[facility] Start: 09-08-2022 Refill Sandrita Guerrero APRN.SHOPPER'S AIDE Work Phone: Cardiology Comment on above: Refill Request Start: 08-04-2022 End: 08-04-2022 ambulatory NANCY REYES . Facility:[facility] Start: 08-02-2022 Telephone encounter Loida Mathias APRN.CNP Work Phone: Cardiology Comment on above: Heart Transplant Fol low Up (Labs/) Start: 08-02-2022 End: 08-03-[address] TAO ROONEY . Facility:[facility] Start: 07-27-[address] TAO ROONEY . Facili ty:[facility] Start: 07-17-2022 End: 07-18-2022 ambulatory [facility] Facility:[facility] [place] Start: 07-16-2022 End: 07-17-2022 ambulatory [facility] Facility:[facility] [place] Start: 07-16-2022 End: 07-16-2022 Patient encounter procedure [facility] Start: 07-12-2022 End: 07-13-2022 ambulatory [facility] Facility:[facility] Start: 07-05-2022 Telephone encounter Sho Crowley APRN.SHOPPER'S AIDE Work Phone: Cardiology Comment on above: Heart Transplant Fol low Up; Lab Meeting Start: 07-03-2022 Telephone encounter Soy Mccann RN Ca rdiology Comment on above: Heart Transplant Fol low Up (labs) Start: 07-03-2022 End: 07-04-[address] TAO ROONEY . Facility:[facility] Start: 05-28-2022 End: 05-29-[address] TAO ROONEY . Facility:[facility] Start: 05-23-2022 ambulatory [facility] Facility:[facility] Start: 05-08-2022 Telephone encounter Loida Mathias APRN.SHOPPER'S AIDE Work Phone: Cardiology Comment on above: Heart Transplant Fol low Up (labs) Start: 05-07-2022 End: 05-08-[address] TAO ROONEY . Facility: Start: 04-24-2022 Telephone encounter Loida Mathias APRN.SHOPPER'S AIDE Work Phone: Cardiology Comment on above: Heart Transplant Fol low Up Start: 04-24-2022 End: 04-25-[address] TAO ROONEY . Facility:[facility] Start: 04-20-[address] TAO ROONEY . Facili ty:[facility] Start: 04-11-2022 ambulatory Loida fontaine APRN.SHOPPER'S AIDE Work Phone: [facility] Start: 04-11-2022 Follow-up encounter Loida Mathias APRN.SHOPPER'S AIDE Work Phone: Cardiology Comment on above: Heart Transplant Fol low Up (Labs) Start: 04-09-2022 End: 04-10-[address] TAO ROONEY . Facility: Start: 04-06-2022 Orders Only Loida fontaine APRN.SHOPPER'S AIDE Work Phone: Cardiology Comment on above: Heart replaced by tr ansplant (HCC) (Primary Dx) Start: 04-04-2022 Refill Loida fontaine APRN.SHOPPER'S AIDE Work Phone: Cardiology Comment on above: Rx Refills Start: 10-03-2021 End: 10-03-2021 ambulatory NICOLETTE RICE [facility] Procedures Date Procedure Procedure Detail Performing Clinician Start: 08-10-2013 H/O: heart recipient Heart transplan arianna Loida Mathias APRN.SHOPPER'S AIDE Work Phone: H/O: heart recipient Heart transplanted ( HCC) Loida Iammarino MUCKER OPERATOR.SHOPPER'S AIDE Work Phone: H/O: heart recipient Heart repla nitish by transplant ([facility]) Loida Iammarino MUCKER OPERATOR.SHOPPER'S AIDE Work Phone: H/O: heart recipient Heart transplanted ( HCC) Loida Iammarino MUCKER OPERATOR.SHOPPER'S AIDE Work Phone: H/O: heart recipient Heart transplanted ( HCC) Loida Iammarino MUCKER OPERATOR.SHOPPER'S AIDE Work Phone: H/O: heart recipient Heart transplanted ( HCC) Sho Crowley APRN.SHOPPER'S AIDE Work Phone: H/O: heart recipient Hx of heart transplant( Confirmed ) Eddie JAMA Plan of Treatment Date Care Activity Detail Author Start: 08-02-2022 Influenza vaccination INFLUENZA (#1) [facility] Start: 07-19-2022 End: 09-18-2022 Tacrolimus [Mass/volume] in Blood TACROLIMUS/FK-506 BL Lab Routine Heart transplanted (HCC) Expected: 07/19/2022 (Approximate), Expires: 09/18/2022 [facility] Work Phone: Comment on above: Expected: 07/19/2022 (Approximate), Expires: 09/18/2022 Start: 05-21-2022 End: 07-21-2022 TACROLIMUS/FK-506 BL TACROLIMUS/FK-506 BL Lab Routine Heart transplanted (HCC) Expected: 05/21/2022, Expires: 07/21/2022 [facility] Work Phone: Comment on above: Expected: 05/21/2022 , Expires: 07/21/2022 Start: 04-23-2022 End: 06-23-2022 TACROLIMUS/FK-506 BL TACROLIMUS/FK-506 BL Lab Routine Heart transplanted (HCC) Expected: 04/23/2022, Expires: 06/23/2022 [facility] Work Phone: Comment on above: Expected: 04/23/2022 , Expires: 06/23/2022 Start: 04-09-2022 End: 06-09-2022 CBC W Auto Differential panel - Blood CBC + DIFF Lab Routine Heart replaced by transplant (HCC) Expected: 04/09/2022, Expires: 06/09/2022 [facility] Work Phone: Comment on above: Expected: 04/09/2022 , Expires: 06/09/2022 Start: 04-09-2022 End: 06-09-2022 Comprehensive metabolic 2000 panel - Serum or Plasma COMP METABOLIC PANEL Lab Routine Heart replaced by transplant ([facility]) Expected: 04/09/2022, Expires: 06/09/2022 [facility] Work Phone: Comment on above: Expected: 04/09/2022 , Expires: 06/09/2022 Start: 04-09-2022 End: 04-06-2023 HEART/LUNG REC POST TX DSA HEART/LUNG REC POST TX DSA ALLOGEN Routine Heart replaced by transplant ([facility]) Expected: 04/09/2022, Expires: 04/06/2023 [facility] Work Phone: Comment on above: Expected: 04/09/2022 , Expires: 04/06/2023 Start: 04-09-2022 End: 06-09-2022 LIPID PANEL BASIC LIPID PANEL BASIC Lab Routine Heart replaced by transplant (HCC) Expected: 04/09/2022, Expires: 06/09/2022 [facility] Work Phone: Comment on above: Expected: 04/09/2022 , Expires: 06/09/2022 Start: 04-09-2022 End: 06-09-2022 Magnesium [Mass/volume] in Serum or Plasma MAGNESIUM BLD Lab Routine Heart replaced by transplant ([facility]) Expected: 04/09/2022, Expires: 06/09/2022 [facility] Work Phone: Comment on above: Expected: 04/09/2022 , Expires: 06/09/2022 Start: 04-09-2022 End: 06-09-2022 TACROLIMUS/FK-506 BL TACROLIMUS/FK-506 BL Lab Routine Heart replaced by transplant ([facility]) Expected: 04/09/2022, Expires: 06/09/2022 [facility] Work Phone: Comment on above: Expected: 04/09/2022 , Expires: 06/09/2022 Start: 04-09-2022 End: 06-09-2022 URINALYSIS, DIPSTICK ONLY URINALYSIS, DIPSTICK ONLY Lab Routine Heart replaced by transplant ([facility]) Expected: 04/09/2022, Expires: 06/09/2022 [facility] Work Phone: Comment on above: Expected: 04/09/2022 , Expires: 06/09/2022 Start: 12-02-2021 ADVANCE DIRECTIVE DISCUSSION ADVANCE DIRECTIVE DISCUSSION [facility] Start: 09-26-2021 COVID-19 VACCINE (3 - Pfizer risk 4-dose series) COVID-19 VACCINE (3 - Pfizer risk 4-dose series) [facility] Start: 09-26-2021 COVID-19 VACCINE (3 - Pfizer risk series) COVID-19 VACCINE (3 - Pfizer risk series) [facility] Start: 03-04-2020 Hepatitis B surface antibody level LDL CHOLESTEROL [facility] Start: 06-14-2015 Hemoglobin A1c/Hemoglobin.total in Blood HBA1C [facility] Start: 11-01-2013 PNEUMOCOCCAL: 65+ (3 - PCV) PNEUMOCOCCAL: 65+ (3 - PCV) [facility] Start: 2009 ADULT PREVNAR ADULT PREVNAR [facility] Start: 1994 SHINGRIX VACCINE (1 of 2) SHINGRIX VACCINE (1 of 2) [facility] Start: 1963 SHINGRIX VACCINE (1 of 2) SHINGRIX VACCINE (1 of 2) [facility] Start: 1963 Urine microalbumin profile DTAP,TDAP,TD (1 - Tdap) [facility] Start: 1962 ANNUAL PCP TEAM FOREIGN DIPLOMAT BRENNAN DISEASE VISIT ANNUAL PCP TEAM CHRONIC DISEASE VISIT [facility] Start: 1962 BP CONTROLLED (<130/80) BP CONTROLLE D (<130/80) [facility] Start: 1954 3 comp foot exam completed DIABETIC FOOT EXAM [facility] Start: 1954 Hepatitis B screening URINE ALBUMIN:CREATININE RATIO [facility] Start: 1954 Hepatitis C antibody , confirmatory test DILATED RETINAL EXAM [facility] Start: 1950 PNEUMOCOCCAL: 65+ (1 - PCV) PNEUMOCOCCAL: 65+ (1 - PCV) [facility] [place] [facility] Immunizations Immunization Date Immunization Notes Care Provider Fa cility 06-05-2022 SARS-CoV-2 mRNA (jancofcefnu-xmsr-vzqpe se) vaccine Morgan SALAdvanced Surgical Concepts [facility] 08-29-2021 SARS-CoV-2 (COVID-19 ) mRNA BNT-162b2 vax Morgan SALAM [facility] 08-02-2021 SARS-CoV-2 (COVID-19 ) mRNA BNT-162b2 vax Morgan SALAM [facility] 07-05-2021 influenza virus vaccine, unspecified formulation Morgan SALAM [facility] 09-29-2020 influenza, unspecifi ed formulation Morgan SALAM [facility] 07-24-2020 influenza virus vaccine, unspecified formulation Morgan AeroScoutAM [facility] 09-02-2017 influenza virus vaccine, unspecified formulation Morgan SALAM [facility] 08-07-2017 pneumococcal conjuga te vaccine, 13 valent Morgan SALAM [facility] 08-14-2016 influenza virus vaccine, unspecified formulation Morgan SALAM [facility] 09-29-2015 pneumococcal conjuga te vaccine, 13 valent Morgan SALAM [facility] 08-04-2015 influenza virus vaccine, unspecified formulation Morgan SALAM [facility] 09-15-2014 influenza virus vaccine, whole virus Loida Iammarino MUCKER OPERATOR.[facility] Work Phone: [facility] 09-15-2014 influenza, whole Morgan SALAM [facility] 11-01-2012 pneumococcal polysaccharide vaccine, 23 valent Loida Iammarino MUCKER OPERATOR.[facility] Work Phone: 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 Work Phone: 08-19-2009 influenza virus vaccine, unspecified formulation Loida Iammarino MUCKER OPERATOR.[facility] Work Phone: [facility] 09-01-2006 influenza virus vaccine, unspecified formulation Loida Iammarino MUCKER OPERATOR.[facility] Work Phone: [facility] Work Phone: 09-01-2006 pneumococcal polysaccharide vaccine, 23 valent Loida Iammarino MUCKER OPERATOR.[facility] Work Phone: [facility] Work Phone: NEGATED: Highlighted row has not occurred!07-12-2022 influenza virus vaccine, unspecified formulation Morgan SALAM [facility] Payers Date Payer Category Payer Self-pay 2022 Medicare UHC MEDICARE UHC DUAL COMPLETE HMO SNP [id number] 2022-Present [phone] [address] [place] [address] Medicare [id number] 2022 Medicare UHC MEDICARE UHC DUAL COMPLETE HMO SNP [id number] 2022-Present [phone] [address] [place] [address] Medicare [id number] 2020 Unknown [id number] 1959 Medicaid [id number] 1959 Medicare [id number] 1959 Self-pay [id number] 1959 Unknown [id number] 1944 Unknown [id number] [id number]3 1944 Unknown [id number] 2.16.840.1.432298.3.579.2.593 1944 Unknown [id number] 2.16.840.1.353945.3.579.2.593 1944 Unknown [id number] 2.16.840.1.505025.3.579.2.593 1944 Unknown [id number] 2.16.840.1.633972.3.579.2.593 1944 Unknown [id number] 2.16.840.1.235370.3.579.2.593 1944 Unknown [id number] 2.16.840.1.025295.3.579.2.593 1944 Unknown [id number] 2.16.840.1.751223.3.579.2.593 1944 Unknown [id number] 2.16.840.1.306001.3.579.2.593 1944 Unknown [id number] 2.16.840.1.132696.3.579.2.593 1944 Unknown [id number] 2.16.840.1.700056.3.579.2.593 1944 Unknown [id number] 2.16.840.1.531579.3.579.2.593 1944 Unknown [id number] 2.16.840.1.919001.3.579.2.593 1944 Unknown [id number] 2.16.840.1.023845.3.579.2.593 1944 Unknown [id number] 2.16.840.1.257673.3.579.2.593 1944 Unknown [id number] 2.16.840.1.311871.3.579.2.593 1944 Unknown [id number] 2.16.840.1.820577.3.579.2.593 1944 Unknown [id number] 2.16.840.1.868527.3.579.2.593 1944 Unknown [id number] 2.16.840.1.986771.3.579.2.727 1944 Unknown [id number] 2.16.840.1.736095.3.579.2.727 1944 Unknown [id number] 2.16.840.1.053712.3.579.2.727 1944 Unknown [id number] 2.16.840.1.723697.3.579.2.727 1944 Unknown [id number] 2.16.840.1.767293.3.579.2.727 Unknown [id number] 2.16.840.1.542973.3.579.2.593 Social History Date Type Detail Facility Start: 05-13-2019 Tobacco smoking stat us NHIS Ex-smoker [facility] Work Phone: History of tobacco use Cigarette Smoker C [facility] Work Phone: Start: 09-07-2019 Alcohol intake Current non-dr video coordinator of alcohol (finding) [facility] Start: 1945 Sex Assigned At Not on file C [facility] Start: 07-12-2022 Never smoked t obacco (finding) [facility] Never [facility] Female [facility] History of tobacco use Current smoker [facility] Start: 05-13-2019 Cigarettes smoked current (pack per day) - Reported 0.[address] [facility] Start: 05-13-2019 Tobacco use and exposure Smokeless tobacco non-user [facility] Start: 1945 Sex Assigned At Female F [facility] Functional Status Date Assessment Result Facility 04-07-2023 Functional Status N/A [facility] Clinical Notes 11-14-2017 to 07-01-2024 Note Date & Type Note Facility 07-01-2024 Note [facility] Subjective Sylvia Herrera is a 78 y.o. year old female patient being seen for follow up [facility] for syncope. Says she's been having [...] in 2007. She is followed by the [facility] cardiology service. She has had [...] There is no (more content not included)... [facility] 02-03-2024 Note [facility] Subjective Sylvia Herrera is a 78 y.o. year old female patient being seen for follow up [facility]. She was seen as inpatient consult [...] Alcohol use: Not Currently Drug use: Never [facility] Visit of 10/30/2021: Sylvia is [...] in 2007. She is followed by the [facility] cardiology service. She has had [...] the prior echocardiographi (more content not included)... [facility] 11-12-2023 Note [facility] Subjective Sylvia Herrera is a 77 [...] in 2007. She is followed by the [facility] cardiology service. She has had [...] Stress Testing (1 (more content not included)... [facility] 10-28-2023 Note [facility] 08-07-2023 Note [facility] Subjective Sylvia Herrera is a 77 [...] in 2007. She is followed by the [facility] cardiology service. She has had [...] scan. [address] (more content not included)... [facility] 04-08-2023 Hospital Discharge instructions Patient [...] improvement. Follow these instructions at home: Take xhau-ytp-riehzin and prescription medicines only as told by [...] provider. Document Revised: 05/29/2022 Document Reviewed: 05/29/2022 [facility] Patient Education 2022 [employer]. 04/08/2023 08:56:02 Nonspecific Chest Pain, Adult Nonspecific [...] Follow these instructions at home: Medicines Take dyyr-pjy-istzecz and prescription medicines only as told by [...] provider. Document Revised: 02/01/2022 Document Reviewed: 02/01/2022 [facility] Patient Education 2022 [employer] Follow Up Care 04/07/2023 21:19:10 With:SCOT ROGERS Address: [facility] [address] [place] [address] [phone] Business (1) When:Within 3 Day(s) [facility] 04-07-2023 Evaluation + Plan note Extrac [...] Troponin 9 Hr. XR Chest Single View [facility]09-01-2022 Miscellaneous Notes* Telephone Encounter - Linden Weems - 08/02/2022 1:41 PM EDT Patient had labs drawn 08/02/22, uploaded to scanned docs. [facility] Miscellaneous Notes* Telephone Encounter - Sho [...] another team. Sho Crowley APRN, CNP Pager: [phone] July 05, 2022 10:42 AM Post Heart Transplant Nurse Practitioner [facility] Miscellaneous Notes* Telephone Encounter - Linden eWems - 07/03/2022 12:59 PM EDT Patient had labs drawn 07/03/22, uploaded to scanned docs. [facility] Miscellaneous Notes* Addendum Note - Loida [...] uploaded to scanned docs. Linden Weems Administrative Real Estate Legal Assistant [facility] Miscellaneous Notes* Telephone Encounter - Linden Weems - 04/24/2022 1:31 PM EDT Patient left message that she had labs drawn today. Linden Weems Administrative Real Estate Legal Assistant Post Heart Transplant J3-4 [facility] NoteHNO ID: [id number] Author: Loida Mathias APRN.CNP Service: ? Author [...] reports she can no longer travel to [place]. She does not have a ride, she has no family or friends to lean on. She has made an appt with a local Technical Clerk. She will ask him if there are any transplant doctors or centers near her and potentially need to transfer her care. She will keep us updated. Loida Mathias APRN.CNP April 12, 2022 2:25 [facility]05-11-2022 History of Present illness Narrative* [...] reports she can no longer travel to [place]. Shedoes not have a ride, she has no family or friends to lean on. She has made an appt with a local Technical Clerk. She will ask him if there are any transplant doctors or centers near her and potentiallyneed to transfer her care. She will keep us updated. Loida Mathias APRN.CNP April 12, 2022 2:25 PM [facility]21 NoteHNO ID: [id number] Author: Loida Mathias APRN.CNP Service: ? Author [...] Mathias APRN.CNP October 09, 2021 4:10 [facility]11-02-2021 NoteHNO ID: [id number] Author: Nicolette Rice MD Service: ? Author Type: Physician Type: Progress Notes Filed: 10/03/2021 4:12 PM Note Text: Heart, Vascular AND Thoracic [place] Department of Cardiovascular Medicine TELEPHONE VISIT PROGRESS [...] in ~6 months. Will see a local labor relations representative at the end of the month. Data Reviewed: No new labs Assessment: She is doing well clinically and her BP is controlled. ? Plan: 1. She was instructed to continue the current medical program. 2. RTC per post-transplant protocol. Total Time Spent: 21-30 minutes Nicolette Rice, [facility]12-14-2017 History of Past illness Narrative* Problem Noted [...] of this encounter (statuses as of 04/05/2022) [facility] History of Past illness Narrative* Problem [...] of this encounter (statuses as of 04/06/2022) [facility] History of Past illness Narrative* Problem [...] of this encounter (statuses as of 04/12/2022) [facility] History of Past illness Narrative* Problem [...] of this encounter (statuses as of 04/24/2022) [facility] History of Past illness Narrative* Problem [...] of this encounter (statuses as of 05/08/2022) [facility] History of Past illness Narrative* Problem [...] of this encounter (statuses as of 07/03/2022) [facility] History of Past illness Narrative* Problem [...] of this encounter (statuses as of 07/05/2022) [facility] History of Past illness Narrative* Problem [...] of this encounter (statuses as of 08/02/2022) [facility] History of Past illness Narrative* Problem [...] of this encounter (statuses as of 09/11/2022) [facility] Future Appointments Appointment Date:08/01/2022 01:50:00 PM Scheduled Provider: Location:[facility] Surgical Services Appointment Type:Surgery FT Diagnostic Tests Pending * CMV Antibody IgM 07/16/22 Future Scheduled Tests Laboratory* Fecal WBC Lactoferrin 07/12/22 * Giardia lamblia, Direct Detection EIA 07/12/22 * O & P Exam, Routine 07/12/22 * Clostridium difficile by PCR 07/12/22 * Enteric Panel by PCR 07/12/22 [facility] Diagnosis Heart transplanted (HCC) Heart replaced by transplant [facility] Diagnosis Heart replaced by transplant (HCC)- Primary Heart [facility] by [facility] Diagnosis Heart replaced by transplant (HCC)- Primary Heart replaced by transplant Heart transplanted (HCC) Heart replaced by transplant [facility] Diagnosis Heart transplanted (HCC) Heart replaced by transplant [facility] Diagnosis Heart transplanted (HCC) Heart replaced by transplant documented [facility] this encounter 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 the event this information is protected by the Federal Confidentiality of Alcohol and Drug Abuse Patient Records regulations: The Federal rules restrict any use of the information to criminally investigate or prosecute any alcohol or drug abuse patient.[facility] the event this information is protected by the Federal Confidentiality of Alcohol and Drug Abuse Patient Records regulations: The Federal rules restrict any use of the information to criminally investigate or prosecute any alcohol or drug abuse patient.[facility] the event this information is protected by the Federal Confidentiality of Alcohol and Drug Abuse Patient Records regulations: The Federal rules restrict any use of the information to criminally investigate or prosecute any alcohol or drug abuse patient.[facility] the event this information is protected by the Federal Confidentiality of Alcohol and Drug Abuse Patient Records regulations: The Federal rules restrict any use of the information to criminally investigate or prosecute any alcohol or drug abuse patient.[facility] the event this information is protected by the Federal Confidentiality of Alcohol and Drug Abuse Patient Records regulations: The Federal rules restrict any use of the information to criminally investigate or prosecute any alcohol or drug abuse patient.[facility] the event this information is protected by the Federal Confidentiality of Alcohol and Drug Abuse Patient Records regulations: The Federal rules restrict any use of the information to criminally investigate or prosecute any alcohol or drug abuse patient.[facility] the event this information is protected by the Federal Confidentiality of Alcohol and Drug Abuse Patient Records regulations: The Federal rules restrict any use of the information to criminally investigate or prosecute any alcohol or drug abuse patient.[facility] the event this information is protected by the Federal Confidentiality of Alcohol and Drug Abuse Patient Records regulations: The Federal rules restrict any use of the information to criminally investigate or prosecute any alcohol or drug abuse patient.[facility] Reason for Visit (unrecogniz ed section and content) Reason Comments Rx Refills Reason Comments Heart Transplant Follow Up Labs Reason Comments Heart Transplant Follow Up Reason Comments Heart Transplant Follow Up labs Reason Comments Heart Transplant Follow Up Lab Meeting Reason Comments Refill Request Care Teams (unrecognized sec tion and content) [employer] Relationship Specialty Start Date End Date Tao Rooney MD [address] [place] [id number] PCP - General Family Practice 05/13/19 [employer] Photographer Relationship Specialty Start Date End Date Tao Rooney MD [address] [id number] PCP - General Family Practice 05/13/19 [employer] Photographer Relationship Specialty Start Date End Date Tao Rooney MD [address] [place] [id number] PCP - General Family Practice 05/13/19 [employer] Photographer Relationship Specialty Start Date End Date Tao Rooney MD [address] [place] [id number] PCP - General Family Practice 05/13/19 [employer] Photographer Relationship Specialty Start Date End Date Tao Rooney MD [address] [place] [id number] PCP - General Family Practice 05/13/19 [employer] Photographer Relationship Specialty Start Date End Date Tao Rooney MD [address] [place] [address] PCP - General Family Medicine 05/13/19 Team Status: Inactive Member Role Status Dates NON STAFF Attending Provider Active Start: Padma chavis 2023 End: June 18, 2024 INFORMATION SOURCE (unrecogn ized section and content) DATE CREATED AUTHOR 09/01/2022 [facility] DATE CREATED AUTHOR AUTHOR'S ORGANIZ ATION 03/09/2023 [facility] DATE CREATED AUTHOR AUTHOR'S ORGANIZ ATION 04/08/2023 [facility] DATE CREATED AUTHOR AUTHOR'S ORGANIZ ATION 07/12/2024 [facility] DATE CREATED AUTHOR AUTHOR'S ORGANIZ ATION 07/23/2024 [facility] Goals (unrecognized section and content) [...] BE BASED ON THE PRIMARY CLINICAL RECORDS. [employer] provides no warranty or guarantee of the accuracy or completeness of information in this document.
[2024-09-05 09:39] LABS: Alanine Aminotransferase 27 U/L (14-59); Albumin Globulin Ratio 1.2; Albumin Level 3.4 g/dL (3.4-5.0); Alkaline Phosphatase 292 U/L (46-116); Anion Gap 20.4; Aspartate Amino Transferase 26 U/L (15-37); BUN Creatinine Ratio 18.3; Bilirubin Total 0.6 mg/dL (0.2-1.0); Carbon Dioxide 14.1 mmol/L (21.0-32.0); Chloride 101 mmol/L (98-107); Estimated GFR (African America 24 (>=60 mL/min/1.73m^2); Estimated GFR (Non-African Ame 19 (>=60 mL/min/1.73m^2); Globulin 2.9 g/dL; Glucose 126 mg/dL (74-106); Magnesium 1.3 mg/dL (1.8-2.4); Potassium 3.5 mmol/L (3.5-5.1); Sodium 132 mmol/L (136-145); Thyroid Stimulating Hormone 3.142 uIU/mL (0.358-3.740); Total Protein 6.3 g/dL (6.4-8.2)
[2024-09-05 10:00] LABS: Basophils Percent Auto 0.2 % (0.2-2.0); Eosinophils Absolute Auto 0.1 10^3/uL (0.0-0.7); Eosinophils Percent Auto 0.8 % (0.9-7.0); Hematocrit 33.8 % (36.0-48.0); Hemoglobin 10.6 g/dL (12.0-16.0); Immature Granulocytes Abs Auto 0.04 10^3/uL (0.00-0.03); Immature Granulocytes Pct Auto 0.4 % (0.0-0.5); Lymphocytes Percent Auto 9.3 % (20.5-60.0); Mean Corpuscular HGB Conc 31.4 g/dL (29.9-35.2); Mean Corpuscular Hemoglobin 28.3 pg (26.7-34.0); Mean Corpuscular Volume 90.1 fL (81.0-99.0); Mean Platelet Volume 10.7 fL (9.5-13.5); Monocytes Absolute Auto 1.2 10^3/uL (0.3-0.8); Monocytes Percent Auto 11.1 % (1.7-12.0); Neutrophils Absolute Auto 8.6 10^3/uL (1.4-6.5); Neutrophils Percent Auto 78.2 % (43.0-75.0); Platelet Count 232 10^3/uL (150-450); Red Blood Count 3.75 10^6/uL (4.20-5.40); Red Cell Distribution Width 13.1 % (11.0-15.0)
== END 2024-09-05 08:46 | disposition home or self-care (01) ==
LOC: LAB 08:47
PROVIDERS: PCP Family Medicine; Visit Provider Nurse Practitioner Family
DX: E03.9 Hypothyroidism, unspecified (principal); R89.9 Unspecified abnormal finding in specimens from other organs, systems and tissues
CPT/HCPCS: 36415; 80053; 83540; 83735; 84443; 85025

== ENCOUNTER 2024-09-05 11:00 | Outpatient (REF) | payer MEDICARE, SELFPAY ==
--- OUTSIDE RECORDS SUMMARY | 2024-09-10 15:53 | XMS_ITS | CCD ---
Author Organization [facility] Care Team Providers Care Structural Design Engineer Name Role Phone Tao Rooney MD Primary Care Provider [phone] SCOT ROGERS Primary Care Physician [phone] Tao Rooney MD Primary Care Provider [phone] NICOLETTE RICE Attending UnavailARELIS Rivera Referring Unavailable TAO ROONEY Primary Care Unavailable Tao Rooney MD Primary Care Provider [phone] TAO HEBERT Primary Care Unavailable [...] Unavailable HOY ., DR BURGER Attending Unavailable FORESTDALE, DR JAZLYN Marcelino Consulting Unavailable SUE, SCOT [...] DR BURGER Admitting Unavailable HOY ., DR BUREGR Primary Care Unavailable HOY ., DR BURGER [...] ., DR BURGER Consulting Unavailable AMY ., ANNCY Admitting Unavailable AMY ., NANCY Attending Unavailable [...] INOPHEN] Drug Allergy 05-18-20 14 GI Upset [facility] Work Phone: (11 sources) Promethazine; Translations: [PROMETHAZINE HCL] Drug Allergy 10-11-20 05 Other: See Comments [facility] (3 sources) Levamisole; Translations: [Phenergan] Drug Allergy 04-07-20 13 [facility] (1 source) Morphine Drug Allergy [facility] (1 source) No Known Medication Allergies; Translations: [No Known Medication Allergies] Propensity to adverse reactions (disorder) [facility] Repository (2 sources) Promethazine; Translations: [promethazine] Drug Allergy 08-12-20 22 Loss of consciousness (finding) [facility] Medications Current Medications Medication Drug [...] Episodic Other aftercare (1 source) Other terminal manager (current) drug therapy; Translations: [OTH JEWELRY BENCH MOLDER CURRENT DRUG THERAPY] Onset: 02-18-2023 Episodic Other [...] Onset: 08-04-2022 Episodic Other aftercare (1 source) prison (current) use of aspirin; Translations: [JEWELRY BENCH MOLDER CURRENT USE OF ASPIRIN] Onset: 08-08-2022 Episodic [...] mail for her to have done at [facility] 1 week prior to seeing Dr. Daly for follow up on 09/14/2024. She verbalized understanding. [facility] 36on 07-21-2024 36 Regarding tacrolimus level drawn on 07/07/2024: MD Kaela Smith MA Did she have the echo? Her tacrolimus level is slightly high. I want a repeat in 2 months. *Dr. Daly, her echo was performed on 07/13/2024 and is scanned into media traffic manager. Will you review this and then I will call Sylvia. Thanks. Normal [facility] Office Visiton 07-01-2024 Follow-up visit [id number] Sylvia Herrera 1945 F Date Provider Department Center 07/01/2024 ANISHA JACOBS JULIAN [facility] Family History Family history unknown: Yes Level of Service:94259 IN OFFICE/OUTPATIENT ESTABLISHED MOD MDM 30 MIN Normal [facility] Activated partial thrombopla stin time (aPTT) in platelet poor plasma by coagulation aOrdered By: NON STAFF on 06-18-2024 aPTT Coag (PPP) [Time] 31.8 s 25.1-36.5 [facility] Comment on above: A hematocrit value g reater than 55% may lead to inaccurate results in coagulation testing. Patients having hematocrit values >55% require a special collection tube for coagulation studies. Please contact the laboratory at [phone] for redraw instructions. INR in Platelet poor plasma by Coagulation assayOrdered By: NON STAFF on 06-18-2024 INR Coag (PPP) [Relative time] 1.3 {INR} [facility] Comment on above: INR Therapeutic Rang e [...] Performed By: #### P TT, PT #### [facility] [address] [place] [address] Partial Thromboplastin Timeo n 07-18-2024 aPTT Coag (Bld) [Time] 31.8 s Normal 25.1-36.5 [facility] Comment on above: Result Comment: A he matocrit value greater than 55% may lead to inaccurate results in coagulation testing. Patients having hematocrit values >55% require a special collection tube for coagulation studies. Please contact the laboratory at [phone] for redraw instructions. PERFORMED BY: [facility] [address] [place] [address] PATHOLOGIST MEDICAL LEAD ANDREIA ARRINGTON M.D. Performed By: #### P TT, PT #### [facility] [address] [place] [address] [facility] Prothrombin time (PT)Ordered By: NON STAFF on 06-18-2024 PT Coag (PPP) [Time] 14.4 s High 9.0-12.9 [place] Comment on above: A hematocrit value g reater than 55% may lead to inaccurate results in coagulation testing. Patients having hematocrit values >55% require a special collection tube for coagulation studies. Please contact the laboratory at [phone] for redraw instructions. Result Comment: A he matocrit value greater than 55% may lead to inaccurate results in coagulation testing. Patients having hematocrit values >55% require a special collection tube for coagulation studies. Please contact the laboratory at [phone] for redraw instructions. Performed By: #### P TT, PT #### [facility] [address] [place] [address] [facility] 36on 04-06-2024 36 I reviewed the blood [...] labs as ordered at last visit. Normal [facility] Telephoneon 04-06-2024 Telephone [id number] Sylvia Herrera 1945 F Date Provider Department Center 04/06/2024 ANISHA JACOBS JULIAN Hernandez Family History Family history unknown: Yes [facility] Orders Onlyon 03-18-2024 Orders Only [id number] Sylvia Herrera 1945 Provider Department Center 03/18/2024 Roman4-MITZY ISLAS GUS Hernandez Family History Family history unknown: Yes [facility] Office Visiton 02-03-2024 Follow-up visit [id number] Sylvia Herrera Erin 1945 Provider Department Center 02/03/2024 ANISHA JACOBS JULIAN Hernandez Family History Family history unknown: Yes Level of Service:93122 IN OFFICE/OUTPATIENT ESTABLISHED MOD MDM 30 MIN [facility] Office Visiton 11-12-2023 Follow-up visit [id number] Sylvia Herrera Erin 1945 Provider Department Center 11/12/2023 ANISHA JACOBS JULIAN Hernandez Family History Family history unknown: Yes Level of Service:62074 IN OFFICE/OUTPATIENT ESTABLISHED MOD MDM 30-39 MIN [facility] 36on 10-26-2023 36 Her tacrolimus level from 10/16/2023 was 1.4. still very low. I believe she is currently taking tacrolimus (Prograf) 0.5 mg bid. I want her to increase to 1 mg bid and obtain another trough level in 2-3 weeks. [facility] Telephoneon 10-26-2023 Telephone [id number] Sylvia Herrera Erin 1945 Provider Department Center 10/26/2023 ANISHA JACOBS JULIAN Hernandez Family History Family history unknown: Yes [facility] Orders Onlyon 09-30-2023 Orders Only [id number] Sylvia Herrera Erin 1945 Provider Department Center 09/30/2023 Paresh8-KAELA TURNER JULIAN Hernandez Family History Family history unknown: Yes [facility] 36on 08-15-2023 36 Her Tacrolimus troug h level (taken on 08/06/2023, reported 08/14/2023) was low at 1.4. She is currently taking tacrolimus 0.5 mg once a day. Please have her increase it to 0.5 mg twice a day and have a repeat Tacrolimus trough level in 2 weeks. Her target level is around 5-10 ng/ml. Normal [facility] Telephoneon 08-15-2023 Telephone [id number] SharonSylvia 1945 F Date Provider Department Center 08/15/2023 ANISHA JACOBS Family History Family history unknown: Yes Normal [facility] Office Visiton 08-07-2023 Follow-up visit [id number] SharonSylvia 1945 F Date Provider Department Center 08/07/2023 ANISHA JACOBS Family History Family history unknown: Yes Level of Service:72896 IN OFFICE/OUTPATIENT ESTABLISHED MOD MDM 30-39 MIN Reason for Visit and Comments: Follow-up [899333] - 6 mo f/u no stress test or tacrolimus result as of 08/06 - does she plan on having stress test? Normal [facility] BMPon 04-08-2023 Creatinine [Mass/Vol] 1.3 mg/dL Normal 0.5-1.3 [facility] Comment on above: Performed By: #### 1 [id number], [id number], [id number] ####[facility] [address] [place] [address] Urea nitrogen [Mass/Vol] 36 mg/dL High 5-21 [facility] Comment on above: Performed By: #### 1 [id number], [id number], [id number] ####[facility] [address] [place] [address] Urea nitrogen/Creatinine [Mass ratio] 28 No Units High 10-20 [facility] Comment on above: Performed By: #### 1 [id number], [id number], [id number] ####[facility] [address] [place] [address] Anion gap [Moles/Vol] 11 mmol/L Normal 6-16 [facility] Comment on above: Performed By: #### 1 [id number], 7110475, [id number] ####[facility] [address] [place] [address] Calcium [Mass/Vol] 8.6 mg/dL Low 8.9-11.1 [facility] Comment on above: Performed By: #### 1 [id number], [id number], [id number] ####[facility] [address] [place] [address] Chloride [Moles/Vol] 99 mmol/L Low 101-111 [facility] Comment on above: Performed By: #### 1 [id number], 8661836, [id number] ####[facility] [address] [facility] [place] [address] CO2 [Moles/Vol] 25 mmol/L Normal 21-31 [facility] Comment on above: Performed By: #### 1 [id number], 0555150, [id number] ####[facility] [address] [place] [address] Glucose [Mass/Vol] 124 mg/dL Normal 55-199 [facility] Comment on above: Result Comment: If t his glucose result represents a fasting glucose, interpretation should refer to the following reference range: 55-99 mg/dL Performed By: #### 1 [id number], 7594345, [id number] ####[facility] [address] [facility] [place] [address] Potassium [Moles/Vol] 4.1 mmol/L Normal 3.5-5.3 [facility] Comment on above: Performed By: #### 1 [id number], 2904480, [id number] ####[facility] [address] [place] [address] Sodium [Moles/Vol] 131 mmol/L Low 135-145 [facility] Comment on above: Performed By: #### 1 5600597, 8635386, [id number] ####[facility] [address] [facility] [address] CHEMISTRYOrdered By: SYSTEM SYSTEM on 04-08-2023 Anion gap [Moles/Vol] 11 mmol/L Normal 6 - 16 mEq/L [facility] Calcium [Mass/Vol] 8.6 mg/dL Low 8.9 - 11. 1 mg/dL [facility] Chloride [Moles/Vol] 99 mmol/L Low 101 - 1 11 mmol/L [facility] CO2 [Moles/Vol] 25 mmol/L Normal 21 - 31 mmol/L [facility] Remisol Creatinine [Mass/Vol] 1.3 mg/dL Normal 0.5 - 1.3 mg/dL [facility] Remisol GFR/1.73 sq M.predicted among non-blacks MDRD (S/P/Bld) [Vol rate/Area] 42 mL/min/1.73 m2 Low >=59mL/min/ 1.73 m2 [facility] Chem S Glucose [Mass/Vol] 124 mg/dL Normal 55 - 199 mg/dL [facility] Potassium [Moles/Vol] 4.1 mmol/L Normal 3.5 - 5.3 mmol/L [facility] Remisol Sodium [Moles/Vol] 131 mmol/L Low 135 - 145 mmol/L [facility] Remisol Troponin I.cardiac [Mass/Vol] 11.10 pg/mL Normal 10.10 - 27.10 pg/mL [facility] Remisol Urea nitrogen [Mass/Vol] 36 mg/dL High 5 - 21 mg/dL [facility] Remisol Urea nitrogen/Creatinine [Mass ratio] 28 mg/mg High 10 - 20 [facility] Remisol Troponin I.cardiac [Mass/Vol] 9.70 pg/mL Low 10.10 - 27.10 pg/mL [facility] Remisol Consent for Treatmenton Consent for Treatment [id number]#[id number]:12 7 Normal [facility] Discharge Instructionson Discharge Instructions [id number]#1.00CD:127 Normal [facility] ED Clinical Summaryon 2022 ED Clinical Summary (Inserted Image. Tram ble to display) [address] [address] ED Clinical Summary Person Information Name: SYLVIA HERRERA Herb/[facility] Age: 77 Years : 1945 Sex: Female Language: Afghan PCP: SCOT ROGERS CNP Marital Status: Single [...] 04/08/2023 08:56:01 04/08/2023 08:56:01 04/08/2023 08:56:01 ADDRESS: [address] [place] [address] [phone] PHYS DOC NOTES: MEDICAL INFORMATION: Prescriptions Given: [...] With: Address: When: SCOT ROGERS [address] [facility] [place] [address] [phone] Business (1) In 3 days DIAGNOSIS: Chest pain; Hyponatremia Normal [facility] ED Note-Physicianon 04-08-20 ED Note-Physician Basic [...] and Complexity of Problems Differential Diagnosis: [] [facility] Data External documents reviewed: N/A My EKG [...] 6 Hr. (more content not included)... Normal [facility] Comment on above: Result Comment: Elec [...] gland problems. ? Metabolic conditions, such as [place]'s disease or syndrome of inappropriate antidiuresis (SIAD). [...] Follow these instructions at home: ? Take xxkc-kjm-hyyzbse and prescription medicines only as told by [...] provider. Document Revised: 05/29/2022 Document Reviewed: 05/29/2022 [employer] Patient Education ? 2022 [employer] Pulmonary Medicine Nonspecific Chest Pain, [...] health care (more content not included)... Normal [facility] ED Patient Summaryon 023 ED Patient Summary (Inserted Image. Tram ble to display) [place] [id number] Patient Discharge Instructions Person Information Name: SYLVIA HERRERA Age: 77 Years Arrival Date: 04/07/2023 21:18:46 Discharge Diagnosis: Chest pain; Hyponatremia Primary Care Physician: SCOT ROGERS CNP Provider Information Primary Provider: Richard Ca DO Advanced Lip Reading Teacher:None The exam and treatment you received in the Emergency Department were for an urgent problem and are not intended as complete care. It is important that you follow up with a doctor, nurse practitioner, or physician?s medical office assistant instructor for ongoing care. If your symptoms become [...] When: SCOT ROGERS [address] [place] [address] [phone] Business (1) In 3 days In the event that this physician does not participate in your insurance network, please consult with your insurance company to find a nearby participating provider. Patient Education Materials: Hyponatremia; Nonspecific Chest Pain, Adult A MESSAGE TO ALL PATIENTS REGARDING OPIOIDS PRESCRIPTION OPIOIDS: WHAT YOU NEED TO KNOW Prescription opioids can be used to help relieve nkeescga-xa-ebzqru pain and are often prescribed following a [...] be struggling with addiction, tell your health primary care pediatrician and ask for guidance or call [facility] National Helpline at 0-722-471-YEVJ. v Source: [place] Departmen (more content not included)... Normal [facility] EMS Documentationon 04-08-20 EMS Documentation Please click on link to see report [id number] QovSCBb VQD7FIZmQGgeNf2LEAE5ArK7Il 3HlN4bKITappNdLNOCP13gODog RzS3Ym0VCHF1LKu8Cb2+ICAg ICAgICAgICAgICAgICAgICAgIC AgICAgICAgICAgICAgICAgICAg ICAgICAgICAgICAgICAgICAg ICAgICAgICAgICAgICAgICAgIC NNLfAmWH1oal9VURh5jjVsSYl6 ZNC4GDttAXVgNOMhAIGuCWPc TUTyKV8WCsTbNYLiLVZ3EXxoYQ OfFPVufw3FDBKbOOPjFHU9YQHf MDAwMCBuDQowMDAwMDAxODM3 HOYxEPBrXZ9ZSqStAZQgZKL6Ty qtCSUdFXWhxk1UWXZnTNUxJpZe OCAwMDAwMCBuDQowMDAwMDAy BsjiAGYdMWBtFQ6UBaKcSEVzHP NbEDLgJMDlCYUqqc1ZQTSpCUCo AfS8PbVfYVCiCYOeQZkjIQBp QAHdNUUyBFSyTRWmZE5TGrYlMN VpPRR6VOsjJFKzACDkxa2NQLBs YULwPhx2BLBiJYDxTXYsJSar YDInVPKcJjV1JGHeDJOjCZ6YMr WnZSJgTLL4JNImBVXdKWIqrm3T BAQiNZXzSXJ4UNFaDVGbCXHp IBujNYBiKKT0XfDsCAWlTXLqCB 0FNiDdFPOaPTM2RajwKROjYRJp zi4SZEVaDUGfQVa4JXJcXVXh ECUnNWhpWKOzCDX9BjV4AZKzTC DqXZ8SMtCkOGZbRRF9TxhgKVTn MTHrxy8WWYFxQJEvIEbiFJTa TEXdTCTlUQhoJILxBZP3BDR3PE MgKPTaJH6ZDqZfIFBdDIE1Odol OCAfJGYesu1DNMHyGVQnBam7 ZkCqEBTtMATxNKukDMWeKLR1CO R8NMRbIIVpGE3CEzCgVASsPNta OTWpWBXeNNYmor8VGTObJYXn OTkyMiAwMDAwMCBuDQowMDAwMD J3VNV4VJWsWNMrSY8GAzRbKVrp ATLOGtn3Vs6AGBEnETHBHLBJ U0RuVBAJWeuTQLQ3ZVI5TXw8WL AdFErcYlM9Vts0IaENURW7Ckq5 HCzXIPQ4HIo0CXMZM1B1FPeJ NTZDRTA+HApqVKBjvwY1DoU2As omFo6voJA2YMPfFetkY2u3XVEe UpvlH340jaJuYTfESOnTZcrO CfDgPjQ8aEIWUDJBQ7H6B95uM6 5gVM0MUMkdB5v1CabSBML2KOyK yLlCWyYoT48nILjnMLZiR8Nx FnpidGbhMPR7L2WqhFU6T6tna2 8aTXGZVNzTl7raRFA5E68IWobL XfuFrlNDD3u3zTDLmPR5Vdma Z1hrUiKuZMRDEAShWrFoYenCL5 SAC8tXCe7uFy7+ICAgICAgICAg ICAgICAgICAgICAgICAgICAg ICAgICAgICAgICAgICAgICAgIC AgICAgICAgICAgICAgICAgICAg ICAgICAgICAgICAgICAgICAg ICAgICAgICAgICAgICAgICAgIC AgICAgICAgICAgICAgICAgICAg ICAgICAgICAgICAgICAgICAg ICAgICAgICAgICAgICAgICAgIC AgICAgICAgICAgICAgICAgICAg ICAgICAgICAgICAgICAgICAg ICAgICAgICAgICAgICAgICAgIC AgICAgICAgICAgICAgICAgICAg ICAgICAgICAgICAgICAgICAg ICAgICAgICAgICAgICAgICAgIC AgICAgICAgICAgICAgICAgICAg ICAgICAgICAgICAgICAgICAg ICAgICAgICAgICAgICAgICAgIC AgICAgICAgICAgICAgICAgICAg ICAgICAgICAgICAgICAgICAg ICAgICAgICAgICAgICAgICAgIC AgICAgICAgICAgICAgICAgICAg ICAgICAgICAgICAgICAgICAg FUVDOfF3SER2bCHpGq9QPO1DBS ACS4HGWc8VLZWlHS6zfp9RSJxJ S71moWCtNRNyLZJzPDMFVq6X oZUqMNZ6mA7qSSr9CVEcFrlfYk q0EW2FL151sAvaruSaQCCuXKEZ Dy9PQAfnLA5fUUYhPIFeIq5e IZcfEMDlJRNhQdCnDTCNG9C3fU FiI0MruUCnt5ePFa7TOhBsDM9k cl5TYGx7GHZgx2DgNZy2USww HkjeuFSmYO7BbHV2AEUlL31jWS pdCHSsR1XeCSVbZWqmJuY5Pzo+ Yw2Ct9MdQGXoRKu6iQWiMSUh YGDLYFBgYLjCAyLhQAEKUxiwAr W9TdIyAJJv7OMpDWEj24KTAyMz QmBeVLugYmYqrRAT4GsySyMA TLgt9GbGVfIFAvKAceI5YIwwAZ WSAvqOBLe8CoNvFlaH4ZrZlqZp 1Q3BRKXZKcqAQsYwINO2ptOj vK7JQO4hb3EyFUjIDlnoVVImXh fSLuo7Us2Yy369VQ28cqKxRlAe HRBGKMzzAMQwkYZGv7nbRcCz PKT4MJVmVwywLKfdJUPjVA57LP ZaCUCRLb6ZYTKctAOqEYEtYYsM G9lUNmvvF0KeMIlZP5tvXxN7 IDggMCBSCj4+Cj4+Jy3QbQRxMF 6FKGkcSe2+QAreviFhWrjSQr9N HMJuWR1age6TRChVC0JMm3hp TcPvZMB3RGDfAbwiXDaeUgknhL KrXI1QsNS4AYNhS11gXQntQICw U6AaAEi3Ao9OLZEqaOLtPTNb ZDmHD0oFLvsoR5YtNNfFV9scXq Q2GQH6BDIwWji+Pgo+SyyzC0Kx yJqgNQHbPj2ugIgwNMswTGNa CZ6fgjXymTy+Go0Cw6OgMDFcVF f6pIQH6QFm9AQmRVLvRDN4AXEx qfEAVPsa5YjUsEYzMpQeoYPz W8grNQZx81cAVJKbWsiVz6njUp Lh8HeFKR+YI7GAavCxBcRehb5Z BQcdleZycDBsGI9YBoSgGO1w rr6ZZHv6UAWeo1GxQRb4WRyvXr 1uB92evs2ubDtaV4AkMSn+Pg0K BK8zh6IbCMpRBuBzZVWdx4Zf BRa1FCvtQg5uC51pos0iuFckA8 EgMQovTEMgMAovTEogMAovTFcg DUhaIEprSMjqS1VeyTO8WRng C3EqXMz+Ad2GYH2mp3FoNQyJSn IvTETfb3KxGSu7FQehHz9mO25q sf9tkArrF6OiEK9pIdMpOqli TEMgMAovTEogMAovTFcgMQovTU siFQvqC3NbhUK2ULkeY8XcQS6t MzMzMwo+Bu7ODX2as4YdRSyJ IoKhUABej7WjSHw5SGrkFx9dE3 6fsg1klRpnV4AgZA5yLLTlDQz+ Bc2EMR8tu3HsHMzUXlOkOTCb o8UsVGd2YAeuWh7tD11hrf1hmY gdE3ZfMI9iFRF1ZAiqPKBwLBwe TEogMAovTFcgMQovTUwgNAov U9MglJO7EDwrE9TaAV3fUJF0KK o+Zz2SII3qn5DsMPwWPfZ8OXSz s8DiBKg5KKnhHET9uoc4ZNjr Asg0XTTgCLUaBI28MGErBRv2Sb 3YK5EssNTsrp4ZtUUaFGLIQ9Bu AKZafjseXIrHU6KwjS3wK7Zf D1GeO2YvtapwBCYYTdaoG61odg PhWZnwIWF7WSZdRPJ8YE6NR2L5 lREmXTIecVL4ISo0lvDdXJob CoBcL2Grh72uKYqFG5ZxTAqiRg x7QyWhFpy1ZdXpVgj1U98KA3Kc QUwpSdv0XuBwNqf9AdTjYnb3 N04CB3SnvMGnelEaZJUeMKvjUo FyP6Hmk91TqBPfTESAU47zGAw+ YyaaF0vsNFzcB9G3pVRiGqe+ WtlzRMpbIOReINF9lYTsdxu+Pg 2EEP0eb8JfXKkUYnS5QWUdu9Tg DNa6JFuwKLN5ptd0LVvjFke4 LVSuJCKqSB76NEEdHCl2Bv6WC4 DfyQDhap1PiLEzWCVLE4CaHQLf byqvHUjJO8TwbK5sV2SrX3Zb F1ReipdvUGNDPutnF43fzmNnHJ z2QRU1VeI7VOD8Rs23Gr8JQ3Q3 tVUqISOssEZ4IOp2evYvTSnf PtEgB6Kfx49kILjDF8TcqZ4ara OsGR06FZunMM7iTVdwQSeeGMRi Vd1LieShHHPwJnBwDGCaKFNn Sm4AkH5xuJsvqmP1bZVgYibjCa YyM5Tpf31xHLm7ZKyqRaTdCqXm BDC2GIEeOXP0QTCdQQX8LVku TgTeRuTuKQG1CMHnQWB1PTGcIW O8MTtpUE7wGUwcCSolJYKfIo4H fO7gjQkftxA3fLJoExlxTjBp Cj4+Bsc2Vw8UQXSnHF72NkgoLK 93WkphSC92AekqGf0YYDZaTD44 ZsShCE55FdRfCY92LoRuZv0V c91cjP3iRdPoIG9QL7P2kiC7bP 9eVCetUTBtZy4IRURZVv5qBj2+ Bp1DdDMqnM0fSCmbURRdJs8+ Jv4FgFWaXH6KXRX8KEUkRb6+DQ yckxNlWcdVHa1QHWJmGGFiIpyE Drb0Nn1ZGHHlBp1drPIrMRiQ BM6KA1RfK56wSOvTG8Kko6Euez XzslTYi708faHzRCrtPWYNPZnq OT1hz2JikhphJ5byUC97pYA2 MNoWT0E8PwT0gHDeS9H1eVTuVk 7Am0AyrEAbLRCaDBivKXPMTx3F xHSwVP1Kk038Ob7+DQplbmRv CuqDWh9HLPieETSqIigRFfx1Zx 3KXGGjPo8erQXvZHiKMS4YE1Uh E14pJNyNY2QATDT0y9RtcPxl Ip2gQTxYJ91fMIHsbC8gSMsAMG RsqGc8fAdAY0CuZ2qdyEA6JDlQ ZG9i (more content not included)... Normal [facility] EMS Documentation Please click on link to see report Normal [facility] Comment on above: Result Comment: Miss ing Attachment - attachment exceeds size limitation [id number] Can be viewed in source system EMS Documentation [id number]#[id number]:127 [facility] Monitor Recordon 04-08-2023 Monitor Record [id number]#[id number]:127 [facility] Progress Note-Nurseon 2022 Progress Note-Nurse Pt. requesting food, Dr. Ca aware. Pt. given food per verbal order from Dr. Ca. Normal [facility] Troponin 0 Hr.on 04-08-2023 Troponin I.cardiac [Mass/Vol] 9.20 pg/mL Low 10.10-27.10 [facility] Comment on above: Result Comment: The 95% CI (Confidence Interval) PPV (Positive Predictive Value) for myocardial infarction in females is 38 pg/mL, in males 51 pg/mL. The results should be used in conjunction with clinical conditions of myocardial infarction. (Access High Sensitivity Troponin I Instructions For Use, [employer]erm[employer] Thadde[employer], July 2018) Performed By: #### 2 [id number], [id number], [id number], [id number], [id number] ####[facility] [address] [place] [address] Troponin 3 Hr.on 04-08-2023 Troponin I.cardiac [Mass/Vol] 9.70 pg/mL Low 10.10-27.10 [facility] Comment on above: Result Comment: The 95% CI (Confidence Interval) PPV (Positive Predictive Value) for myocardial infarction in females is 38 pg/mL, in males 51 pg/mL. The results should be used in conjunction with clinical conditions of myocardial infarction. (Access High Sensitivity Troponin I Instructions For Use, [employer], July 2018) Performed By: #### 1 [id number] ####[facility] [address] [place] [address] Troponin 6 Hr.on 04-08-2023 Troponin I.cardiac [Mass/Vol] 11.10 pg/mL Normal 10.10-27.10 [facility] Comment on above: Result Comment: The 95% CI (Confidence Interval) PPV (Positive Predictive Value) for myocardial infarction in females is 38 pg/mL, in males 51 pg/mL. The results should be used in conjunction with clinical conditions of myocardial infarction. ([employer] High Sensitivity Troponin I Instructions For Use, [employer], July 2018) Performed By: #### 1 [id number] ####[facility] [id number] [place] [address] XR Chest Single Viewon 04-08 XR Chest [...] mGy = na DAP = na Normal [facility] eGFRon 04-08-2023 GFR/1.73 sq M.predicted among non-blacks MDRD (S/P/Bld) [Vol rate/Area] 42 mL/min/1.73 m2 Low >=59 [facility] Comment on above: Order Comment: Order added by Discern Expert. Result Comment: [employer] brennan kidney disease could be indicated at eGFR's of less than 60 mL/min/1.73m2. Kidney failure is indicated at less than 15 mL/min/1.73m2. Performed By: #### 1 [id number] ####[facility] [id number] [place] [address] Auto Diffon 04-07-2023 Basophils/100 WBC (Bld) 0.4 % Normal 0.0-2.0 [facility] Comment on above: Order Comment: Order Added by Discern Expert. Performed By: #### 2 [id number] ####[id number] [place] [address] Basophils/Leukocytes Auto (Bld) [Pure # fraction] 0.0 E9/L Normal 0.0-0.2 [facility] Comment on above: Order Comment: Order Added by Discern Expert. Performed By: #### 2 [id number], [id number], [id number] ####[id number] [place], [place] [address] Eosinophils/100 WBC (Bld) 3.0 % Normal 0.0-8.0 [facility] Comment on above: Order Comment: Order Added by Discern Expert. Performed By: #### 2 502294, 78983791, 1560455, 1880012, 80547775, 93633711 ####[address] [address] Eosinophils/Leukocyt es Auto (Bld) [Pure # fraction] 0.2 E9/L Normal 0.0-0.5 [facility] Comment on above: Order Comment: Order Added by Discern Expert. Performed By: #### 2 653166, 49371956, 3137378, 6145679, 58200267, 87884806 ####[address] [place] [address] Lymphocytes/100 WBC (Bld) 15.4 % Normal 14.0-50.0 [facility] Comment on above: Order Comment: Order Added by Discern Expert. Performed By: #### 2 994951, 33191818, 2685019, 4289318, 03225186, 19485969 ####[address] [address] Lymphocytes/Leukocyt es Auto (Bld) [Pure # fraction] 1.1 E9/L Normal 1.0-4.0 [facility] Comment on above: Order Comment: Order Added by Discern Expert. Performed By: #### 2 326471, 41058550, 0829457, 6190760, 55144123, 35278166 ####[address] [address] Monocytes/100 WBC (Bld) 12.8 % Normal 4.0-14.0 [facility] Comment on above: Order Comment: Order Added by Discern Expert. Performed By: #### 2 860796, 88598814, 0370238, 8770483, 01600196, 79789296 ####[address] [address] Monocytes/Leukocytes Auto (Bld) [Pure # fraction] 0.9 E9/L Normal 0.2-1.0 [facility] Comment on above: Order Comment: Order Added by Discern Expert. Performed By: #### 2 212472, 50540240, 2938936, 6823546, 55124475, 53746297 ####[address] [address] Neutrophils/100 WBC (Bld) 68.4 % Normal 36.0-75.0 [facility] Comment on above: Order Comment: Order Added by Discern Expert. Performed By: #### 2 616090, 05672969, 4763890, 3826529, 56365416, 28535555 ####[address] [address] Neutrophils/Leukocyt es Auto (Bld) [Pure # fraction] 5.0 E9/L Normal 2.0-7.5 [facility] Comment on above: Order Comment: Order Added by Discern Expert. Performed By: #### 2 386395, 94940405, 0494244, 9494687, 13590021, 69646557 ####[facility] [address] [place] [address] BMPon 04-07-2023 Creatinine [Mass/Vol] 1.5 mg/dL High 0.5-1.3 [facility] Comment on above: Performed By: #### 2 048485, 49459757, 5729450, 8001374, 15686989, 85771205 ####[facility] [address] [place] [address] Urea nitrogen [Mass/Vol] 40 mg/dL High 5-21 [facility] Comment on above: Performed By: #### 2 264442, 35122289, 0810929, 7793793, 09448278, 41556643 ####[facility] [address] [place] [address] Urea nitrogen/Creatinine [Mass ratio] 27 No Units High 10-20 [facility] Comment on above: Performed By: #### 2 024572, 03175012, 4504873, 0439888, 95141235, 19685553 ####[facility] [address] [place] [address] Anion gap [Moles/Vol] 11 mmol/L Normal 6-16 [facility] Comment on above: Performed By: #### 2 322344, 21552578, 9358779, 7030203, 93694179, 39654644 ####[facility] [address] [place] [address] Calcium [Mass/Vol] 8.6 mg/dL Low 8.9-11.1 [facility] Comment on above: Performed By: #### 2 048217, 91148812, 4466177, 4527848, 80488934, 52330699 ####[facility] [address] [place] [address] Chloride [Moles/Vol] 96 mmol/L Low 101-111 [facility] Comment on above: Performed By: #### 2 029248, 54829775, 6386594, 0392102, 02352111, 17777719 ####[facility] [address] [place] [address] CO2 [Moles/Vol] 24 mmol/L Normal 21-31 [facility] Comment on above: Performed By: #### 2 310228, 47043143, 6526267, 9401162, 28009139, 60993449 ####[facility] [address] [place] [address] Glucose [Mass/Vol] 139 mg/dL Normal 55-199 [facility] Comment on above: Result Comment: If t his glucose result represents a fasting glucose, interpretation should refer to the following reference range: 55-99 mg/dL Performed By: #### 2 987730, 01809744, 1063995, 0973045, 00566842, 23649510 ####[facility] [address] [place] [address] Potassium [Moles/Vol] 4.4 mmol/L Normal 3.5-5.3 [facility] Comment on above: Performed By: #### 2 608495, 61122715, 5549443, 8902570, 98486834, 56527572 ####[facility] [address] [place] [address] Sodium [Moles/Vol] 127 mmol/L Low 135-145 [facility] Comment on above: Performed By: #### 2 101053, 54882907, 9781676, 2193153, 09493660, 92964701 ####[facility] [address] [place] [address] CBC w/ Auto Diffon 3 Erythrocyte distribution width (RBC) [Ratio] 13.0 % Normal 10.9-14.2 [facility] Comment on above: Performed By: #### 2 098808, 76647383, 0889836, 0256605, 49177423, 78702097 ####[facility] [address] [place] [address] Hematocrit (Bld) [Volume fraction] 38.4 % Normal 34.0-46.0 [facility] Comment on above: Performed By: #### 2 734213, 82257067, 0523655, 2608798, 08393578, 67336437 ####[address] [address] Hemoglobin (Bld) [Mass/Vol] 12.6 g/dL Normal 12.0-16.0 [facility] Comment on above: Performed By: #### 2 007849, 17372413, 0012541, 7784555, 15361360, 43744479 ####[address] [address] MCH (RBC) [Entitic mass] 27.9 pg Normal 27.0-34.0 [facility] Comment on above: Performed By: #### 2 681919, 18414164, 2596746, 5170392, 66711852, 86623371 ####[address] [address] MCHC (RBC) [Mass/Vol] 32.7 g/dL Normal 31.4-36.0 [facility] Comment on above: Performed By: #### 2 981812, 75537590, 9207028, 2188063, 72152489, 78634267 ####[address] [address] MCV (RBC) [Entitic vol] 85.3 fL Normal 80.0-100.0 [facility] Comment on above: Performed By: #### 2 002853, 36511151, 5502658, 9641750, 68642216, 15164421 ####[facility] [address] [place] [address] Platelet mean volume (Bld) [Entitic vol] 7.3 fL Normal 6.4-10.8 [facility] Comment on above: Performed By: #### 2 500298, 80856951, 6741839, 1495887, 83048013, 91637595 ####[facility] [address] [place] [address] Platelets (Bld) [#/Vol] 167.0 E9/L Normal 150.0-500.0 [facility] Comment on above: Performed By: #### 2 814923, 61437202, 5514599, 7987697, 42879737, 18350945 ####[facility] [address] [place] [address] RBC (Bld) [#/Vol] 4.5 E12/L Normal 4.3-5.9 [facility] Comment on above: Performed By: #### 2 776088, 69977939, 0355502, 3513035, 86841033, 45709374 ####[facility] [address] [place] [address] WBC corrected for nucl RBC Auto (Bld) [#/Vol] 7.3 E9/L Normal 4.0-11.0 [facility] Comment on above: Performed By: #### 2 566206, 38757040, 5500801, 6043713, 75749169, 77260289 ####[facility] [address] [place] [address] CHEMISTRYOrdered By: SYSTEM SYSTEM on 04-07-2023 Anion [...] Coag (PPP) [Time] 27.1 second(s) Normal 25.1-36.5 [facility] Comment on above: Result Comment: Para [...] the same coagulation reagent and instrumentation as [facility]. Currently there are no coagulation studies available worldwide for children to 14 days, and no normal ranges. Heparin therapeutic range (represented by Anti-Factor Xa activity of 0.2 - 0.4 U/mL) corresponds to PTT of 56.6 - 109.0 sec. Performed By: #### 2 105301, 03282251, 7653806, 7188739, 92232920, 09332403 ####[facility] [address] [place] [address] INR Coag (PPP) [Relative time] 1.2 {INR} Invalid Interpretation Code [facility] Comment on above: Result Comment: INR results are specifically intended to assess patients stabilized on long-term Anticoagulation therapy suggested INR?s ?Less Intensive Anticoagulation? 2.0 ? 3.0 Conventional Range 3.0 ? 4.5 Performed By: #### 2 373105, 73041056, 2224006, 2292583, 48402096, 27274014 ####[facility] [address] [place] [address] PT Coag (PPP) [Time] 12.9 second(s) High 9.4-12.5 [facility] Comment on above: Result Comment: 15 [...] the same coagulation reagent and instrumentation as [facility]. Currently there are no coagulation studies available worldwide for children to 14 days, and no normal ranges. Performed By: #### 2 029941, 80361645, 5967213, 8958579, 69919266, 40925673 ####[facility] [address] [place] [address] Pre-Arrival Noteon 3 Pre-Arrival Note Pre-Arrival Summary Name: , YAZMIN Current Date: 04/07/2023 21:19:11 EDT Gender: Female Date of : Age: 77 Pre-Arrival Type: EMS ETA: 04/07/2023 21:15:00 EDT Primary Care Physician: Presenting Problem: chest pain Pre-Arrival User: Natalia Fischer RN Referring Source: Location: Completion Date/Time: 04/07/2023 21:06:00 [facility] Emergency Department Pre-Hospital Report Form _ Vital Signs: Pre-Hospital Report: Treatment in Route: Response to Treatment: Misc. Issues: Normal [facility] eGFRon 04-07-2023 GFR/1.73 sq M.predicted among non-blacks MDRD (S/P/Bld) [Vol rate/Area] 35 mL/min/1.73 m2 Low >=59 [facility] Comment on above: Order Comment: Order added by Discern Expert. Result Comment: [employer] brennan kidney disease could be indicated at eGFR's of less than 60 mL/min/1.73m2. Kidney failure is indicated at less than 15 mL/min/1.73m2. Performed By: #### 2 111468, 37878808, 2581689, 2571679, 99361311, 82697008 ####[facility] [address] [place] [address] INFLUENZA A AND B AGon 03-05 INFLUANEGH SEE BELOW Normal The [facility] Comment on above: Result Comment: Nega tive for Flu A protein angiten. Infection due to Flu A cannot be ruled out. Flu A angiten in the sample may be below the detection limit of the test. Performed By: #### E RUR #### [facility] [address] [place] [address] Dr. Hardeep Rivera INFLUBNEGH SEE BELOW Normal [facility] Comment on above: Result Comment: Nega tive for Flu B protein antigen. Infection due to Flu B cannot be ruled out. Flu B antigen in the sample may be below the detection limit of the test. Performed By: #### E RUR #### [facility] [address] [place] [address] Dr. Hardeep Rivera INFLUENZA A AG Negative Normal NEGATIVE SEE COMMENT [facility] Comment on above: Performed By: #### E RUR #### [facility] [address] [place] [address] Dr. Hardeep Rivera INFLUENZA B AG Negative Normal NEGATIVE SEE COMMENT [facility] Comment on above: Performed By: #### E RUR #### [facility] [address] [place] [address] Dr. Hardeep Rivera SYMPTOMATIC COVID-19 ANTIGEN on 03-05-2023 EUA Statement SEE BELOW Normal [facility] Comment on above: Result Comment: This [...] revoked sooner. Performed By: #### C IMANIS ####[facility] [address] [address]Dr. Hardeep Rivera SARS-CoV-2 (COVID-19) RNA ULICES+probe Ql (Unsp spec) Positive Abnormal NEGATIVE [facility] Comment on above: Performed By: #### C IMANIS ####[facility] [address] [address]DrLaura Rivera FK506 (TACROLIMUS) WHOLE BLO ODon 02-28-2023 Tacrolimus (FK506), Blood 5.8 ng/mL Normal 2.0-20.0 [facility] Comment on above: Result Comment: Trou gh (immediately following transplant) 15.0 . Trough (steady state, 2 weeks or more after transplant): 3.0 - 8.0 . Performed by LC-MS/MS technology. Performed By: #### F K506T ####[facility] [address] [address]Dr. Hardeep Rivera CBC AUTO DIFFon 02-14-2023 BASO # 0.0 103/ul Normal 0.0-0.1 [facility] Comment on above: Performed By: #### RANDALL OLSON #### [facility] [address] [place] [address] Dr. Hardeep Rivera Basophils/100 WBC (Bld) 0.5 % Normal 0.2-2.0 [facility] Comment on above: Performed By: #### RANDALL OLSON #### [facility] [address] [place] [address] Dr. Hardeep Rivera EO # 0.2 103/ul Normal 0.0-0.7 [facility] Comment on above: Performed By: #### RANDALL OLSON #### [facility] [address] [place] [address] Dr. Hardeep Rivera Eosinophils/100 WBC (Bld) 3.5 % Normal 0.9-7.0 [facility] Comment on above: Performed By: #### HARI OLSONRO #### [facility] [address] [place] [address] Dr. Hardeep Rivera Erythrocyte distribution width (RBC) [Ratio] 12.3 % Normal 11.0-15.0 [facility] Comment on above: Performed By: #### HARI OLSONRO #### [facility] [address] [place] [address] Dr. Hardeep Rivera Hematocrit (Bld) [Volume fraction] 38.7 % Normal 36.0-48.0 [facility] Comment on above: Performed By: #### HARI OLSONRO #### [facility] [address] [place] [address] Dr. Hardeep Rivera Hemoglobin (Bld) [Mass/Vol] 12.6 g/dL Normal 12.0-16.0 [facility] Comment on above: Performed By: #### HARI OLSONRO #### [facility] [address] [place] [address] Dr. Hardeep Rivera IG # 0.03 10e3/ul Normal 0.00-0.03 [facility] Comment on above: Performed By: #### HARI OLSONRO #### [facility] [address] [place] [address] Dr. Hardeep Rivera IG % 0.5 % Normal 0.0-0.5 [facility] Comment on above: Performed By: #### HARI OLSONRO #### [facility] [address] [place] [address] Dr. Hardeep Rivera LYMPH # 0.8 103/ul Critically low 1.2-3.8 [facility] Comment on above: Performed By: #### HARI OLSONRO #### [facility] [address] [place] [address] Dr. Hardeep Rivera Lymphocytes/100 WBC (Bld) 13.2 % Critically low 20.5-60.0 [facility] Comment on above: Performed By: #### HARI OLSONRO #### [facility] [address] [place] [address] Dr. Hardeep Rivera MANUAL DIFF REQ NO Normal [facility] Comment on above: Performed By: #### Deedee PINON UMICRO #### [facility] [address] [place] [address] Dr. Hardeep Rivera MCH (RBC) [Entitic mass] 28.3 pg Normal 26.7-34.0 [facility] Comment on above: Performed By: #### Deedee PINON UMICRO #### [facility] [address] [place] [address] Dr. Hardeep Rivera MCHC (RBC) [Mass/Vol] 32.6 g/dL Normal 29.9-35.2 [facility] Comment on above: Performed By: #### Deedee PINON UMICRO #### [facility] [address] [place] [address] Dr. Hardeep Rivera MCV (RBC) [Entitic vol] 87.0 fL Normal 81.0-99.0 [facility] Comment on above: Performed By: #### Deedee PINON UMICRO #### [facility] [address] [place] [address] Dr. Hardeep Rivera MONO # 0.8 103/ul Normal 0.3-0.8 [facility] Comment on above: Performed By: #### Deedee PINON UMICRO #### [facility] [address] [place] [address] Dr. Hardeep Rivera Monocytes/100 WBC (Bld) 12.9 % Critically high 1.7-12.0 [facility] Comment on above: Performed By: #### Deedee PNION UMICRO #### [facility] [address] [place] [address] Dr. Hardeep Rivera NEUT # 4.4 103/ul Normal 1.4-6.5 [facility] Comment on above: Performed By: #### Deedee PINON UMICRO #### [facility] [address] [place] [address] Dr. Hardeep Rivera Neutrophils/100 WBC (Bld) 69.4 % Normal 43.0-75.0 [facility] Comment on above: Performed By: #### Deedee PINON, UMICRO #### [facility] [address] [address] [address] Hardeep Rivera Platelet mean volume (Bld) [Entitic vol] 9.0 fL Critically low 9.5-13.5 [facility] Comment on above: Performed By: #### Deedee PINON, UMICRO #### [facility] [address] [address] [address] Hardeep Rivera PLT 205 103/ul Normal 150-450 [facility] Comment on above: Performed By: #### Deedee PINON, UMICRO #### [facility] [address] [address] [address] Hardeep Rivera RBC 4.45 106/ul Normal 4.20-5.40 [facility] Comment on above: Performed By: #### Deedee PINON, UMICRO #### [facility] [address] [address] [address] Hardeep Rivera WBC 6.3 103/ul Normal 4.0-11.0 [facility] Comment on above: Performed By: #### Deedee PINON, UMICRO #### [facility] [address] HEAD WO CONon [...] CAMERON NELSON Date: 2023-02-14 15:46 Normal [facility] ER URINE PROFILEon 3 Bilirubin Ql (U) Negative Normal NEGATIVE [facility] Comment on above: Performed By: #### Deedee PINON UMICRO #### [facility] [address] [place] [address] Dr. Hardeep Rivera Clarity (U) CLEAR Normal CLEAR [facility] Comment on above: Performed By: #### Deedee PINON UMICRO #### [facility] [address] [place] [address] Dr. Hardeep Rivera Color (U) LT. YELLOW Normal YELLOW [facility] Comment on above: Performed By: #### Deedee PINON UMICRO #### [facility] [address] [place] [address] Dr. Hardeep Rivera ERUCHIDI A micrscopic examina tion will be performed if indicated. Normal [facility] Comment on above: Performed By: #### Deedee PINON UMICRO #### [facility] [address] [place] [address] Dr. Hardeep Rivera Glucose Ql (U) Negative Normal NEGATIVE [facility] Comment on above: Performed By: #### Deedee PINON UMICRO #### [facility] [address] [place] [address] Dr. Hardeep Rivera Hemoglobin Ql (U) TRACE-INTACT Abnormal NEGATIVE [facility] Comment on above: Performed By: #### Deedee PINON UMICRO #### [facility] [address] [place] [address] Dr. Hardeep Rivera Ketones Ql (U) Negative Normal NEGATIVE [facility] Comment on above: Performed By: #### Deedee PINON UMBENNETTRO #### [facility] [address] [place] [address] Dr. Hardeep Rivera LEUKOCYTES Negative Normal NEGATIVE [facility] Comment on above: Performed By: #### Deedee PINON UMICRO #### [facility] [address] [place] [address] Dr. Hardeep Rivera Nitrite Ql (U) Negative Normal NEGATIVE [facility] Comment on above: Performed By: #### Deedee PINON UMICRO #### [facility] [address] [place] [address] Dr. Hardeep Rivera pH (U) 7.0 [pH] Normal 5-9 [facility] Comment on above: Performed By: #### Deedee PINON UMICRO #### [facility] [address] [place] [address] Dr. Hardeep Rivera Protein (U) [Mass/Vol] 30 mg/dL Abnormal NEGATIVE/ TRACE [facility] Comment on above: Performed By: #### Deedee PINON UMICRO #### [facility] [address] [place] [address] Dr. Hardeep Rivera SPEC GRAVITY 1.010 Normal 1.005-<=1.0 25 [facility] Comment on above: Performed By: #### Deedee PINON UMICRO #### [facility] [address] [place] [address] Dr. Hardeep Rivera UR MICRO IND INDICATED Normal [facility] Comment on above: Performed By: #### Deedee PINON UMICRO #### [facility] [address] [place] [address] Dr. Hardeep Rivera Urobilinogen Qn (U) 0.2 {Kevon'U}/dL Normal 0.2 - 1. 0 [facility] Comment on above: Performed By: #### Deedee PINON UMICRO #### [facility] [address] [place] [address] Dr. Hardeep Rivera PROF 14(COMP METB)on 023 Albumin [Mass/Vol] 3.5 g/dL Normal 3.4-5.0 [facility] Comment on above: Performed By: #### H STROPN, CMP, TSH ####[facility] [address] [address]Dr. Hardeep Rivera Albumin/Globulin [Mass ratio] 1.2 {ratio} Normal [facility] Comment on above: Performed By: #### H TYLER CMP, TSH ####[facility] [address] [address]Dr. Preethiarabella Rivera ALP [Catalytic activity/Vol] 153 U/L Critically high 46-116 [facility] Comment on above: Performed By: #### H TYLER, CMP, TSH ####[facility] [address] [address]Dr. Hardeep Rivera ALT [Catalytic activity/Vol] 21 U/L Normal 14-59 [facility] Comment on above: Performed By: #### H TYLER CMP, TSH ####[facility] [address] [address]Dr. Hardeep Rivera Anion gap [Moles/Vol] 9.3 mmol/L Normal [facility] Comment on above: Performed By: #### H TYLER CMP, TSH ####[facility] [address] [address]Dr. Hardeep Rivera AST [Catalytic activity/Vol] 23 U/L Normal 15-37 [facility] Comment on above: Performed By: #### H TYLER CMP, TSH ####[facility] [address] [address]Dr. Hardeep Rivera Bilirubin [Mass/Vol] 0.6 mg/dL Normal 0.2-1.0 [facility] Comment on above: Performed By: #### H STRONATHANIEL, CMP, TSH ####[facility] [address] [address]Dr. Hardeep Rivera Calcium [Mass/Vol] 8.4 mg/dL Critically low 8.5-10.1 [facility] Comment on above: Performed By: #### H STRONATHANIEL, CMP, TSH ####[facility] [address] [place], [place] [address]Dr. Hardeep Rivera Chloride [Moles/Vol] 96 mmol/L Critically low 98-107 [facility] Comment on above: Performed By: #### H STROPN, CMP, TSH ####[facility] [address] [address]Dr. Hardeep Rivera CO2 [Moles/Vol] 29.3 mmol/L Normal 21.0-32.0 [facility] Comment on above: Performed By: #### H STROPN, CMP, TSH ####[facility] [address] [address]Dr. Hardeep Rivera Creatinine [Mass/Vol] 1.16 mg/dL Critically high 0.55-1.02 [facility] Comment on above: Performed By: #### H STROPN, CMP, TSH ####[facility] [address] [place], [place] [address]Dr. Hardeep Rivera EGFR-AF KOSOVAN 55 mL/min/1.73m2 Critically low >=60 [facility] Comment on above: Performed By: #### H STROPN, CMP, TSH ####[facility] [address] [address]Dr. Hardeep Rivera EGFR-NON AF KOSOVAN 45 mL/min/1.73m2 Critically low >=60 [facility] Comment on above: Performed By: #### H STROPN, CMP, TSH ####[facility] [address] [place], [place] [address]Dr. Hardeep Rivera Globulin (S) [Mass/Vol] 2.9 g/dL Normal [facility] Comment on above: Performed By: #### H STROPN, CMP, TSH ####[facility] [address] [place] [address]Dr. Hardeep Rivera Glucose [Mass/Vol] 105 mg/dL Normal 74-106 [facility] Comment on above: Performed By: #### H STROPN, CMP, TSH ####[facility] [address] [place] [address]Dr. Hardeep Rivera Potassium [Moles/Vol] 4.6 mmol/L Normal 3.5-5.1 [facility] Comment on above: Performed By: #### H STROPN, CMP, TSH ####[facility] [address] [place] [address]Dr. Hardeep Rivera Protein [Mass/Vol] 6.4 g/dL Normal 6.4-8.2 [facility] Comment on above: Performed By: #### H GLADIS SCOTT, TSH ####[facility] [address] [place] [address]Dr. Hardeep Rivera Sodium [Moles/Vol] 130 mmol/L Critically low 136-145 [facility] Comment on above: Performed By: #### H GLADIS SCOTT, TSH ####[facility] [address] [place] [address]Dr. Hardeep Rivera Urea nitrogen [Mass/Vol] 27.0 mg/dL Critically high 7.0-18.0 [facility] Comment on above: Performed By: #### H GLADIS SCTOT, TSH ####[facility] [address] [place], [place] [address]Dr. Hardeep Rivera Urea nitrogen/Creatinine [Mass ratio] 23.3 mg/mg Normal [facility] Comment on above: Performed By: #### H GLADIS SCOTT, TSH ####[facility] [address] [place] [address]Dr. Hardeep Rivera PROTIMEon 02-14-2023 INR Coag (PPP) [Relative time] 1.07 {INR} Normal [facility] Comment on above: Performed By: #### P T, PTT ####[facility] [address] [place], [place] [address]Dr. Hardeep Rivera INR GUIDELINES SEE BELOW Normal [facility] Comment on above: Result Comment: EDMUND RED INR: 2.0 - 3.0 CONDITIONS NOT LISTED BELOW 2.5 - 3.5 FOR PROSTHETIC HEART VALVE REPLACEMENT 2.5 - 3.5 RECURRENT THROMBOSIS Performed By: #### P T, PTT ####[facility] [address]ot[address] [place], [place] [address]Dr. Hardeep Rivera PT Coag (PPP) [Time] 11.3 s Normal 9.0-11.6 [facility] Comment on above: Performed By: #### P T, PTT ####[facility] [address] [place] [id number]. Hardeep Rivera PTTon 02-14-2023 aPTT Coag (Bld) [Time] 29.1 s Normal 22.3-36.2 [facility] Comment on above: Performed By: #### P T, PTT ####[facility] [address] [place] [address]Dr. Hardeep Rivera TROPONIN, HIGH SENSITIVITYon 02-14-2023 HSTROP 10.4 pg/mL Normal 4.0-51.3 [facility] Comment on above: Result Comment: CUT- OFF POINTS HAVE BEEN ESTABLISHED BASED ON THE FOURTH UNIVERSAL DEFINITIONS OF MYOCARDIAL INFARCTION. THE UPPER REFERENCE LIMIT (URL) OF TROPONIN, DEFINED THE 99TH PERCENTILE OF cTnI DISTRIBUTION IN A REFERENCE POPULATION, HAS BEEN CONFIRMED THE DECISION THRESHOLD FOR SD DIAGNOSIS. Performed By: #### H TYLER CMP, TSH ####[facility] [address] [place] [address]Dr. Hardeep Rivera TSHon 02-14-2023 TSH 1.237 uIU/mL Normal 0.358-3.740 [facility] Comment on above: Performed By: #### H TYLER CMP, TSH ####[facility] [address] [place] [address]Dr. Hardeep Rivera URINE MICROSCOPIC ONLYon BACTERIA NONE SEEN Normal NONE SEEN [facility] Comment on above: Performed By: #### Deedee PINON UMICRO #### [facility] [address] [place] [address] Dr. Hardeep Rivera Bacteria identified Cx Nom (U) NOT INDICATED Normal [facility] Comment on above: Performed By: #### E RUR UMICRO #### [facility] [address] [place] [address] Dr. Hardeep Rivera CAST NONE SEEN Normal NONE SEEN [facility] Comment on above: Performed By: #### E RUR UMICRO #### [facility] [address] [place] [address] Dr. Hardeep Rivera Crystals LM Nom (Urine sed) NONE SEEN Normal NONE SEEN [facility] Comment on above: Performed By: #### E RUR, UMICRO #### [facility] [address] [address] [address] Hardeep Rivera Epithelial cells LM Ql (Urine sed) NONE SEEN Normal NONE SEEN /RARE [facility] Comment on above: Performed By: #### E RUR, UMICRO #### [facility] [address] [address] [address] Hardeep Rivera MUCOUS NONE SEEN Normal NONE SEEN [facility] Comment on above: Performed By: #### E RUR, UMICRO #### [facility] [address] [place] [address] Dr. Hardeep Rivera RBC 0-2 Normal 0-2 [facility] Comment on above: Performed By: #### E RUR, UMICRO #### [facility] [address] [place] [address] Dr. Hardeep Rivera WBC NONE SEEN Normal NONE SEEN [facility] Comment on above: Performed By: #### E RUR, UMICRO #### [facility] [address] [place] [address] Dr. Hardeep Rivera XR CHEST 1 Von [...] JAZLYN DUBOSE Date: 2023-02-14 15:50 Normal [facility] FK506 (TACROLIMUS) WHOLE BLO ODon 02-13-2023 Tacrolimus (FK506), Blood 1.4 ng/mL Critically low 2.0-20.0 [facility] Comment on above: Result Comment: Trou gh (immediately following transplant) 15.0 . Trough (steady state, 2 weeks or more after transplant): 3.0 - 8.0 . Performed by LC-MS/MS technology. Performed By: #### E RUR #### [facility] [address] [place] [address] Dr. Hardeep Rivera PROF 14(COMP METB)on 023 Albumin [Mass/Vol] 3.5 g/dL Normal 3.4-5.0 [facility] Comment on above: Performed By: #### C MP ####[facility] I[address] [place], [place] [address]Dr. Hardeep Rivera Albumin/Globulin [Mass ratio] 1.2 {ratio} Normal [facility] Comment on above: Performed By: #### C MP ####[facility] M[address] [place], [place] [address]Dr. Hardeep Rivera ALP [Catalytic activity/Vol] 149 U/L Critically high 46-116 [facility] Comment on above: Performed By: #### C MP ####[facility] K[address] [place], [place] [address]Dr. Hardeep Rivera ALT [Catalytic activity/Vol] 19 U/L Normal 14-59 [facility] Comment on above: Performed By: #### C MP ####[facility] It[address] [place], [place] [address]Dr. Hardeep Rivera Anion gap [Moles/Vol] 11.7 mmol/L Normal [facility] Comment on above: Performed By: #### C MP ####[facility] T[address] [place], [place] [address]Dr. Hardeep Rivera AST [Catalytic activity/Vol] 27 U/L Normal 15-37 [facility] Comment on above: Performed By: #### C MP ####[facility] Z[address] [place], [place] [address]Dr. Hardeep Rivera Bilirubin [Mass/Vol] 0.6 mg/dL Normal 0.2-1.0 [facility] Comment on above: Performed By: #### C MP ####[facility] Eco[address] [place], [place] [address]Dr. Hardeep Rivera Calcium [Mass/Vol] 8.5 mg/dL Normal 8.5-10.1 [facility] Comment on above: Performed By: #### C MP ####[facility] [address] [place], [place] [address]Dr. Hardeep Rivera Chloride [Moles/Vol] 96 mmol/L Critically low 98-107 [facility] Comment on above: Performed By: #### C MP ####[facility] [address] [place] [address]Dr. Preethiarabella Miguel CO2 [Moles/Vol] 28.1 mmol/L Normal 21.0-32.0 [facility] Comment on above: Performed By: #### C MP ####[facility] [address] [place], [place] [address]Dr. Hardeep Rivera Creatinine [Mass/Vol] 1.24 mg/dL Critically high 0.55-1.02 [facility] Comment on above: Performed By: #### C MP ####[facility] [address] [place], [place] [address]Dr. Hardeep Rivera EGFR-AF KOSOVAN 51 mL/min/1.73m2 Critically low >=60 [facility] Comment on above: Performed By: #### C MP ####[facility] Yob[address] [place], [place] [address]Dr. Hardeep Rivera EGFR-NON AF KOSOVAN 42 mL/min/1.73m2 Critically low >=60 [facility] Comment on above: Performed By: #### C MP ####[facility] Uri[address]oylzn[address] [place], [place] [address]Dr. Hardeep Rivera Globulin (S) [Mass/Vol] 3.0 g/dL Normal [facility] Comment on above: Performed By: #### C MP ####[facility] [address]ekqu[address] [place], [place] [address]DrLaura Rivera Glucose [Mass/Vol] 141 mg/dL Critically high 74-[address] [facility] Comment on above: Performed By: #### C MP ####[facility] B[address] [place], [place] [address]Dr. Hardeep Rivera Potassium [Moles/Vol] 4.8 mmol/L Normal 3.5-5.1 [facility] Comment on above: Performed By: #### C MP ####[facility] [address]wy[address] [place], [place] [address]Dr. Hardeep Rivera Protein [Mass/Vol] 6.5 g/dL Normal 6.4-8.2 [facility] Comment on above: Performed By: #### C MP ####[facility] [address] [place] [address]Dr. Hardeep Rivera Sodium [Moles/Vol] 131 mmol/L Critically low 136-145 [facility] Comment on above: Performed By: #### C MP ####[facility] [address] [place] [address]Dr. Hardeep Rivera Urea nitrogen [Mass/Vol] 29.0 mg/dL Critically high 7.0-18.0 [facility] Comment on above: Performed By: #### C MP ####[facility] [address] [place], [place] [address]Dr. Hardeep Rivera Urea nitrogen/Creatinine [Mass ratio] 23.4 mg/mg Normal [facility] Comment on above: Performed By: #### C MP ####[facility] Jf[address] [place], [place] [address]Dr. Hardeep Rivera BNPon 01-09-2023 Natriuretic peptide B (Bld) [Mass/Vol] 336.0 pg/mL Normal <=1,800.0 [facility] Comment on above: Performed By: #### C MP, TSH, BNP, T7 ####[facility] [address] [place], [place] [address]Dr. Hardeep Rivera CBC AUTO DIFFon 01-09-2023 BASO # 0.0 103/ul Normal 0.0-0.1 [facility] Comment on above: Performed By: #### C BC #### [facility] [address] [place] [address] Dr. Hardeep Rivera Basophils/100 WBC (Bld) 0.4 % Normal 0.2-2.0 [facility] Comment on above: Performed By: #### C BC #### [facility] [address] [place] [address] Dr. Hardeep Rivera EO # 0.3 103/ul Normal 0.0-0.7 [facility] Comment on above: Performed By: #### C BC #### [facility] [address] [place] [address] Dr. Hardeep Rivera Eosinophils/100 WBC (Bld) 4.4 % Normal 0.9-7.0 [facility] Comment on above: Performed By: #### C BC #### [facility] [address] [place] [address] Dr. Hardeep Rivera Erythrocyte distribution width (RBC) [Ratio] 12.3 % Normal 11.0-15.0 [facility] Comment on above: Performed By: #### C BC #### [facility] [address] [place] [address] Dr. Hardeep Rivera Hematocrit (Bld) [Volume fraction] 43.3 % Normal 36.0-48.0 [facility] Comment on above: Performed By: #### C BC #### [facility] [address] [place] [address] Dr. Hardeep Rivera Hemoglobin (Bld) [Mass/Vol] 13.5 g/dL Normal 12.0-16.0 [facility] Comment on above: Performed By: #### C BC #### [facility] [address] [place] [address] Dr. Hardeep Rivera IG # 0.02 10e3/ul Normal 0.00-0.03 [facility] Comment on above: Performed By: #### C BC #### [facility] [address] [place] [address] Dr. Hardeep Rivera IG % 0.3 % Normal 0.0-0.5 [facility] Comment on above: Performed By: #### C BC #### [facility] [address] [place] [address] Dr. Hardeep Rivera LYMPH # 1.1 103/ul Critically low 1.2-3.8 [facility] Comment on above: Performed By: #### C BC #### [facility] [address] [place] [address] Dr. Hardeep Rivera Lymphocytes/100 WBC (Bld) 16.0 % Critically low 20.5-60.0 [facility] Comment on above: Performed By: #### C BC #### [facility] [address] [place] [address] Dr. Hardeep Rivera MANUAL DIFF REQ NO Normal [facility] Comment on above: Performed By: #### C BC #### [facility] [address] [place] [address] Dr. Hardeep Rivera MCH (RBC) [Entitic mass] 28.4 pg Normal 26.7-34.0 [facility] Comment on above: Performed By: #### C BC #### [facility] [address] [place] [address] Dr. Hardeep Rivera MCHC (RBC) [Mass/Vol] 31.2 g/dL Normal 29.9-35.2 [facility] Comment on above: Performed By: #### C BC #### [facility] [address] [place] [address] Dr. Hardeep Rivera MCV (RBC) [Entitic vol] 91.0 fL Normal 81.0-99.0 [facility] Comment on above: Performed By: #### C BC #### [facility] [address] [place] [address] Dr. Hardeep Rivera MONO # 1.0 103/ul Critically high 0.3-0.8 [facility] Comment on above: Performed By: #### C BC #### [facility] [address] [place] [address] Dr. Hardeep Rivera Monocytes/100 WBC (Bld) 14.7 % Critically high 1.7-12.0 [facility] Comment on above: Performed By: #### C BC #### [facility] [address] [place] [address] Dr. Hardeep Rivera NEUT # 4.4 103/ul Normal 1.4-6.5 [facility] Comment on above: Performed By: #### C BC #### [facility] [address] [place] [address] Dr. Hardeep Rivera Neutrophils/100 WBC (Bld) 64.2 % Normal 43.0-75.0 [facility] Comment on above: Performed By: #### C BC #### [facility] [address] [address] [address] Hardeep Rivera Platelet mean volume (Bld) [Entitic vol] 9.5 fL Normal 9.5-13.5 [facility] Comment on above: Performed By: #### C BC #### [facility] [address] [address] [address] Hardeep Rivera PLT 238 103/ul Normal 150-450 [facility] Comment on above: Performed By: #### C BC #### [facility] [address] [address] [address] Hardeep Rivera RBC 4.76 106/ul Normal 4.20-5.40 [facility] Comment on above: Performed By: #### C BC #### [facility] [address] [address] [address] Hardeep Rivera WBC 6.8 103/ul Normal 4.0-11.0 [facility] Comment on above: Performed By: #### C BC #### [facility] [address] [address] [address] Hardeep Rivera FREE THYROXINE INDEX T7on FTI 3.96 Normal 1.30-4.50 [facility] Comment on above: Performed By: #### C MP, TSH, BNP, T7 ####[facility] [address] [place], [place] [address]Dr. Hardeep Rivera T3U 35.0 % Normal 30.0-39.0 [facility] Comment on above: Performed By: #### C MP, TSH, BNP, T7 ####[facility] [address] [place], [place] [address]SgDr. Hardeep Rivera T4 [Mass/Vol] 11.30 ug/dL Normal 4.80-13.90 [facility] Comment on above: Performed By: #### C MP, TSH, BNP, T7 ####[facility] Ways[address] [place], [place] [address]KfDr. Hardeep Rivera PROF 14(COMP METB)on 023 Albumin [Mass/Vol] 3.9 g/dL Normal 3.4-5.0 [facility] Comment on above: Performed By: #### C MP, TSH, BNP, T7 ####[facility] [address] [place] [address]Dr. Hardeep Rivera Albumin/Globulin [Mass ratio] 1.2 {ratio} Normal [facility] Comment on above: Performed By: #### C MP, TSH, BNP, T7 ####[facility] [address] [place] [address]Dr. Hardeep Rivera ALP [Catalytic activity/Vol] 151 U/L Critically high 46-116 [facility] Comment on above: Performed By: #### C MP, TSH, BNP, T7 ####[facility] [address] [place], [place] [address]Dr. Hardeep Rivera ALT [Catalytic activity/Vol] 30 U/L Normal 14-59 [facility] Comment on above: Performed By: #### C MP, TSH, BNP, T7 ####[facility] [address] [place], [place] [address]Dr. Hardeep Rivera Anion gap [Moles/Vol] 15.6 mmol/L Normal [facility] Comment on above: Performed By: #### C MP, TSH, BNP, T7 ####[facility] [address] [place], [place] [address]Dr. Hardeep Rivera AST [Catalytic activity/Vol] 23 U/L Normal 15-37 [facility] Comment on above: Performed By: #### C MP, TSH, BNP, T7 ####[facility] [address] [place], [place] [address]Dr. Hardeep Rivera Bilirubin [Mass/Vol] 0.7 mg/dL Normal 0.2-1.0 [facility] Comment on above: Performed By: #### C MP, TSH, BNP, T7 ####[facility] [address] [place], [place] [address]Dr. Hardeep Rivera Calcium [Mass/Vol] 9.0 mg/dL Normal 8.5-10.1 [facility] Comment on above: Performed By: #### C MP, TSH, BNP, T7 ####[facility] [address] [place] [address]Dr. Hardeep Rivera Chloride [Moles/Vol] 97 mmol/L Critically low 98-107 [facility] Comment on above: Performed By: #### C MP, TSH, BNP, T7 ####[facility] [address] [place] [address]Dr. Hardeep Rivera CO2 [Moles/Vol] 26.1 mmol/L Normal 21.0-32.0 [facility] Comment on above: Performed By: #### C MP, TSH, BNP, T7 ####[facility] [address] [place] [address]Dr. Hardeep Rivera Creatinine [Mass/Vol] 1.78 mg/dL Critically high 0.55-1.02 [facility] Comment on above: Performed By: #### C MP, TSH, BNP, T7 ####[facility] [address] [place], [place] [address]Dr. Hardeep Miguel EGFR-AF KOSOVAN 33 mL/min/1.73m2 Critically low >=60 [facility] Comment on above: Performed By: #### C MP, TSH, BNP, T7 ####[facility] [address] [place], [place] [address]Dr. Hardeep Miguel EGFR-NON AF KOSOVAN 28 mL/min/1.73m2 Critically low >=60 [facility] Comment on above: Performed By: #### C MP, TSH, BNP, T7 ####[facility] [address] [place], [place] [address]Dr. Preethiarabella Rivera Globulin (S) [Mass/Vol] 3.3 g/dL Normal [facility] Comment on above: Performed By: #### C MP, TSH, BNP, T7 ####[facility] [address] [place], [place] [address]Dr. Preethiarabella Miguel Glucose [Mass/Vol] 127 mg/dL Critically high 74-106 [facility] Comment on above: Performed By: #### C MP, TSH, BNP, T7 ####[facility] [address] [place], [place] [address]Dr. Hardeep Rivera Potassium [Moles/Vol] 3.7 mmol/L Normal 3.5-5.1 [facility] Comment on above: Performed By: #### C MP, TSH, BNP, T7 ####[facility] [address] [place] [address]Dr. Hardeep Rivera Protein [Mass/Vol] 7.2 g/dL Normal 6.4-8.2 [facility] Comment on above: Performed By: #### C MP, TSH, BNP, T7 ####[facility] [address] [place] [address]Dr. Hardeep Rivera Sodium [Moles/Vol] 135 mmol/L Critically low 136-145 [facility] Comment on above: Performed By: #### C MP, TSH, BNP, T7 ####[facility] [address] [place] [address]Dr. Hardeep Rivera Urea nitrogen [Mass/Vol] 54.0 mg/dL Critically high 7.0-18.0 [facility] Comment on above: Performed By: #### C MP, TSH, BNP, T7 ####[facility] [address] [place] [address]Dr. Hardeep Rivera Urea nitrogen/Creatinine [Mass ratio] 30.3 mg/mg Normal [facility] Comment on above: Performed By: #### C MP, TSH, BNP, T7 ####[facility] [address] [place] [address]Dr. Hardeep Rivera TSHon 01-09-2023 TSH 1.097 uIU/mL Normal 0.358-3.740 [facility] Comment on above: Performed By: #### C MP, TSH, BNP, T7 ####[facility] [address] [place] [address]Dr. Hardeep Rivera ECHOCARDIO M/2D COMPLETEon 0 12-13-2022 ECHOCARDIO M/2D COMPLETE Patient: SYLVIA HERRERA Exam Date: 12/13/2022 : 1945 Gender:F Ordering : [facility] Admission #: [id number] Family : Order #: [id number] CLICK HERE TO VIEW EXAM ECHOCARDIOGRAM REPORT [...] 2.44 cm Aortic Valve AoV Area (Peak Chirs): 2.01 cm2, 2.01 cm2 AoV Area (VTI): 2.23 cm2, 2.23 cm2 Deceleration Gem: 1.44 m/s2 Pressure Half-Time: 850.98 ms Peak [...] Nolan M.D. on 12/14/2022 at 13:49 Normal [facility] US ALAN DOP LEG BILon 023 [...] HAI FOSTER Date: 2022-12-13 10:51 Normal [facility] BNPon 12-11-2022 Natriuretic peptide B (Bld) [Mass/Vol] 457.0 pg/mL Normal <=1,800.0 [facility] Comment on above: Performed By: #### RANDALL OLSON #### [facility] [address] [place] [address] Dr. Hardeep Rivera CBC AUTO DIFFon 12-11-2022 BASO # 0.0 103/ul Normal 0.0-0.1 [facility] Comment on above: Performed By: #### RANDALL OLSON #### [facility] [address] [place] [address] Dr. Hardeep Rivera Basophils/100 WBC (Bld) 0.4 % Normal 0.2-2.0 [facility] Comment on above: Performed By: #### RANDALL OLSON #### [facility] [address] [place] [address] Dr. Hardeep Rivera EO # 0.2 103/ul Normal 0.0-0.7 [facility] Comment on above: Performed By: #### RANDALL OLSON #### [facility] [address] [place] [address] Dr. Hardeep Rivera Eosinophils/100 WBC (Bld) 2.7 % Normal 0.9-7.0 [facility] Comment on above: Performed By: #### HARI OLSONRO #### [facility] [address] [place] [address] Dr. Hardeep Rivera Erythrocyte distribution width (RBC) [Ratio] 11.9 % Normal 11.0-15.0 [facility] Comment on above: Performed By: #### HARI OLSONRO #### [facility] [address] [place] [address] Dr. Hardeep Rivera Hematocrit (Bld) [Volume fraction] 40.2 % Normal 36.0-48.0 [facility] Comment on above: Performed By: #### Deedee PINON UMICRO #### [facility] [address] [place] [address] Dr. Hardeep Rivera Hemoglobin (Bld) [Mass/Vol] 13.5 g/dL Normal 12.0-16.0 [facility] Comment on above: Performed By: #### Deedee PINON UMICRO #### [facility] [address] [place] [address] Dr. Hardeep Rivera IG # 0.03 10e3/ul Normal 0.00-0.03 [facility] Comment on above: Performed By: #### Deedee PINON UMICRO #### [facility] [address] [place] [address] Dr. Hardeep Rivera IG % 0.4 % Normal 0.0-0.5 [facility] Comment on above: Performed By: #### Deedee PINON UMICRO #### [facility] [address] [place] [address] Dr. Hardeep Rivera LYMPH # 0.9 103/ul Critically low 1.2-3.8 [facility] Comment on above: Performed By: #### Deedee PINON UMICRO #### [facility] [address] [place] [address] Dr. Hardeep Rivera Lymphocytes/100 WBC (Bld) 11.3 % Critically low 20.5-60.0 [facility] Comment on above: Performed By: #### Deedee PINON UMICRO #### [facility] [address] [place] [address] Dr. Hardeep Rivera MANUAL DIFF REQ NO Normal [facility] Comment on above: Performed By: #### Deedee PINON UMICRO #### [facility] [address] [place] [address] Dr. Hardeep Rivera MCH (RBC) [Entitic mass] 28.4 pg Normal 26.7-34.0 [facility] Comment on above: Performed By: #### Deedee PINON UMICRO #### [facility] [address] [place] [address] Dr. Hardeep Rivera MCHC (RBC) [Mass/Vol] 33.6 g/dL Normal 29.9-35.2 [facility] Comment on above: Performed By: #### HARI OLSONRO #### [facility] [address] [place] [address] Dr. Hardeep Rivera MCV (RBC) [Entitic vol] 84.5 fL Normal 81.0-99.0 [facility] Comment on above: Performed By: #### Deedee PINON UMICRO #### [facility] [address] [place] [address] Dr. Hardeep Rivera MONO # 1.0 103/ul Critically high 0.3-0.8 [facility] Comment on above: Performed By: #### Deedee PINON UMICRO #### [facility] [address] [place] [address] Dr. Hardeep Rivera Monocytes/100 WBC (Bld) 12.5 % Critically high 1.7-12.0 [facility] Comment on above: Performed By: #### Deedee PINON UMICRO #### [facility] [address] [place] [address] Dr. Hardeep Rivera NEUT # 5.9 103/ul Normal 1.4-6.5 [facility] Comment on above: Performed By: #### Deedee PINON UMICRO #### [facility] [address] [place] [address] Dr. Hardeep Rivera Neutrophils/100 WBC (Bld) 72.7 % Normal 43.0-75.0 [facility] Comment on above: Performed By: #### Deedee PINON UMICRO #### [facility] [address] [place] [address] Dr. Hardeep Rivera Platelet mean volume (Bld) [Entitic vol] 8.6 fL Critically low 9.5-13.5 [facility] Comment on above: Performed By: #### Deedee PINON UMICRO #### [facility] [address] [place] [address] Dr. Hardeep Rivera PLT 226 103/ul Normal 150-450 [facility] Comment on above: Performed By: #### HARI OLSONRO #### [facility] [address] [place] [address] Dr. Hardeep Rivera RBC 4.76 106/ul Normal 4.20-5.40 [facility] Comment on above: Performed By: #### HARI OLSONRO #### [facility] [address] [place] [address] Dr. Hardeep Rivera WBC 8.2 103/ul Normal 4.0-11.0 [facility] Comment on above: Performed By: #### Deedee PINON UMICRO #### [facility] [address] [place] [address] Dr. Hardeep Rivera FREE THYROXINE INDEX T7on FTI 3.40 Normal 1.30-4.50 [facility] Comment on above: Performed By: #### HARI OLSONRO #### [facility] [address] [place] [address] Dr. Hardeep Rivera T3U 34.0 % Normal 30.0-39.0 [facility] Comment on above: Performed By: #### HARI OLSONRO #### [facility] [address] [place] [address] Dr. Hardeep Rivera T4 [Mass/Vol] 10.00 ug/dL Normal 4.80-13.90 [facility] Comment on above: Performed By: #### HARI OLSONRO #### [facility] [address] [place] [address] Dr. Hardeep Rivera PROF 14(COMP METB)on 023 Albumin [Mass/Vol] 3.8 g/dL Normal 3.4-5.0 [facility] Comment on above: Performed By: #### HARI OLSONRO #### [facility] [address] [place] [address] Dr. Hardeep Rivera Albumin/Globulin [Mass ratio] 1.1 {ratio} Normal [facility] Comment on above: Performed By: #### HARI OLSONRO #### [facility] [address] [place] [address] Dr. Hardeep Rivera ALP [Catalytic activity/Vol] 192 U/L Critically high 46-116 [facility] Comment on above: Performed By: #### RANDALL OLSON #### [facility] [address] [place] [address] Dr. Hardeep Rivera ALT [Catalytic activity/Vol] 22 U/L Normal 14-59 [facility] Comment on above: Performed By: #### RANDALL OLSON #### [facility] [address] [place] [address] Dr. Hardeep Rivera Anion gap [Moles/Vol] 11.4 mmol/L Normal [facility] Comment on above: Performed By: #### RANDALL OLSON #### [facility] [address] [place] [address] Dr. Hardeep Rivera AST [Catalytic activity/Vol] 22 U/L Normal 15-37 [facility] Comment on above: Performed By: #### RANDALL OLSON #### [facility] [address] [place] [address] Dr. Hardeep Rivera Bilirubin [Mass/Vol] 0.5 mg/dL Normal 0.2-1.0 [facility] Comment on above: Performed By: #### RANDALL OLSON #### [facility] [address] [place] [address] Dr. Hardeep Rivera Calcium [Mass/Vol] 9.1 mg/dL Normal 8.5-10.1 [facility] Comment on above: Performed By: #### HARI OLSONRO #### [facility] [address] [place] [address] Dr. Hardeep Rivera Chloride [Moles/Vol] 93 mmol/L Critically low 98-107 [facility] Comment on above: Performed By: #### RANDALL OLSON #### [facility] [address] [place] [address] Dr. Hardeep Rivera CO2 [Moles/Vol] 30.8 mmol/L Normal 21.0-32.0 [facility] Comment on above: Performed By: #### HARI OLSONRO #### [facility] [address] [place] [address] Dr. Hardeep Rivera Creatinine [Mass/Vol] 1.49 mg/dL Critically high 0.55-1.02 [facility] Comment on above: Performed By: #### E RUR, UMICRO #### [facility] [address] [place] [address] Dr. Hardeep Rivera EGFR-AF KOSOVAN 41 mL/min/1.73m2 Critically low >=60 [facility] Comment on above: Performed By: #### E RUR, UMICRO #### [facility] [address] [place] [address] Dr. Hardeep Rivera EGFR-NON AF KOSOVAN 34 mL/min/1.73m2 Critically low >=60 [facility] Comment on above: Performed By: #### E RUR, UMICRO #### [facility] [address] [place] [address] Dr. Hardeep Rivera Globulin (S) [Mass/Vol] 3.4 g/dL Normal [facility] Comment on above: Performed By: #### E RUR, UMICRO #### [facility] [address] [place] [address] Dr. Hardeep Rivera Glucose [Mass/Vol] 116 mg/dL Critically high 74-106 [facility] Comment on above: Performed By: #### E RUR, UMICRO #### [facility] [address] [place] [address] Dr. Hardeep Rivera Potassium [Moles/Vol] 4.2 mmol/L Normal 3.5-5.1 [facility] Comment on above: Performed By: #### E RUR, UMICRO #### [facility] [address] [place] [address] Dr. Hardeep Rivera Protein [Mass/Vol] 7.2 g/dL Normal 6.4-8.2 [facility] Comment on above: Performed By: #### E RUR, UMICRO #### [facility] [address] [place] [address] Dr. Hardeep Rivera Sodium [Moles/Vol] 131 mmol/L Critically low 136-145 [facility] Comment on above: Performed By: #### RANDALL OLSON #### [facility] [address] [place] [address] Dr. Hardeep Rivera Urea nitrogen [Mass/Vol] 38.0 mg/dL Critically high 7.0-18.0 [facility] Comment on above: Performed By: #### HARI OLSONRO #### [facility] [address] [address] [address] Hardeep Rivera Urea nitrogen/Creatinine [Mass ratio] 25.5 mg/mg Normal [facility] Comment on above: Performed By: #### RANDALL OLSON #### [facility] [address] [place] [address] Dr. Hardeep Rivera TSHon 12-11-2022 TSH 6.407 uIU/mL Critically high 0.358-3.740 [facility] Comment on above: Performed By: #### RANDALL OLSON #### [facility] [address] [place] [address] Dr. Hardeep Rivera [facility]on [facility]-01 SARS-CoV-2 (COVID-19) RNA ULICES+probe Ql (Unsp spec) Not detected Normal NOT DETECTED [facility] Comment on above: Result Comment: This test is not yet approved or cleared by the [place] FDA. When there are no FDA-approved or cleared tests available, and other criteria are met, FDA can make tests available under an emergency access mechanism called an Emergency Use Authorization (EUA). The EUA for this test is supported by the [place] [employer] of Health and Human Service's (HHS's) declaration [...] consistent with SARS-CoV-2. Performed By: #### C [facility] #### [facility] [address] [place] [address] Dr. Hardeep Rivera INFLUENZA A AND B AGon 11-14 [facility] SEE BELOW Normal [facility] Comment on above: Result Comment: Nega tive for Flu A protein angiten. Infection due to Flu A cannot be ruled out. Flu A angiten in the sample may be below the detection limit of the test. Performed By: #### Deedee PINON UMICRO #### [facility] [address] [place] [address] Dr. Hardeep Rivera [facility] SEE BELOW Normal [facility] Comment on above: Result Comment: Nega tive for Flu B protein antigen. Infection due to Flu B cannot be ruled out. Flu B antigen in the sample may be below the detection limit of the test. Performed By: #### Deedee PINON UMICRO #### [facility] [address] [place] [address] Dr. Hardeep Rivera INFLUENZA A AG Negative Normal NEGATIVE SEE COMMENT [facility] Comment on above: Performed By: #### Deedee PINON ICRO #### [facility] [address] [place] [address] Dr. Hardeep Rivera INFLUENZA B AG Negative Normal NEGATIVE SEE COMMENT [facility] Comment on above: Performed By: #### Deedee PINON UMICRO #### [facility] [address] [place] [address] Dr. Hardeep Rivera INTERNAL CONTROLS Within Normal Limits Normal Wi thin Normal Limits [facility] Comment on above: Performed By: #### Deedee PINON UMICRO #### [facility] [address] [place] [address] Dr. Hardeep Rivera Covid-19 PCR ([facility])on SARS-CoV-2 (COVID-19) RNA ULICES+probe Ql (Unsp spec) Not detected Normal NOT DETECTED [facility] Comment on above: Result Comment: This test is not yet approved or cleared by the [place] FDA. When there are no FDA-approved or cleared tests available, and other criteria are met, FDA can make tests available under an emergency access mechanism called an Emergency Use Authorization (EUA). The EUA for this test is supported by the [place] of Health and Human Service's (HHS's) declaration [...] consistent with SARS-CoV-2. Performed By: #### [facility] #### [facility] [address] [place] [address] Dr. Hardeep Rivera INFLUENZA A AND B [facility] 10-03 [facility] SEE BELOW Normal [facility] Comment on above: Result Comment: Nega tive for Flu A protein angiten. Infection due to Flu A cannot be ruled out. Flu A angiten in the sample may be below the detection limit of the test. Performed By: #### E AKSHAT PINONICRO #### [facility] [address] [place] [address] Dr. [facility] Normal [facility] Comment on above: Result Comment: Nega tive for Flu B protein antigen. Infection due to Flu B cannot be ruled out. Flu B antigen in the sample may be below the detection limit of the test. Performed By: #### E KATHRIN UMICRO #### [facility] [address] [place] [address] Dr. Hardeep Rivera INFLUENZA A AG Negative Normal NEGATIVE SEE COMMENT [facility] Comment on above: Performed By: #### E KATHRIN, UMICRO #### [facility] [address] [place] [address] Dr. Hardeep Rivera INFLUENZA B AG Negative Normal NEGATIVE SEE COMMENT [facility] Comment on above: Performed By: #### E RUR, ICRO #### [facility] [address] [place], [place] [address] Dr. Hardeep Rivera INTERNAL CONTROLS Within Normal Limits Normal Wi thin Normal Limits [facility] Comment on above: Performed By: #### E COLLINSR, ICRO #### [facility] [address] [place], [place] [address] Dr. Hardeep [facility] SYLVIA HERRERA ([id number]) 1945 F Date Time Provider Department 08/16/22 SOY MCCANN [facility] ISACC During your visit today, we [...] mg by mouth three times daily. 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 Hardeep Miguel CBC AUTO DIFFon 08-04-2022 BASO # 0.0 103/ul Normal 0.0-0.1 [facility] Comment on above: Performed By: #### C BC ####[facility] [address] [address]Dr. Hardeep Rivera Basophils/100 WBC (Bld) 0.3 % Normal 0.2-2.0 [facility] Comment on above: Performed By: #### C BC ####[facility] [address] [place], [place] [address]Dr. Hardeep Rivera EO # 0.1 103/ul Normal 0.0-0.7 [facility] Comment on above: Performed By: #### C BC ####[facility] [address] [address]Dr. Hardeep Rivera Eosinophils/100 WBC (Bld) 1.2 % Normal 0.9-7.0 [facility] Comment on above: Performed By: #### C BC ####[facility] [address] [place], [place] [address]Dr. Hardeep Rivera Erythrocyte distribution width (RBC) [Ratio] 12.2 % Normal 11.0-15.0 [facility] Comment on above: Performed By: #### C BC ####[facility] [address] [place], [place] [address]Dr. Hardeep Rivera Hematocrit (Bld) [Volume fraction] 38.3 % Normal 36.0-48.0 [facility] Comment on above: Performed By: #### C BC ####[facility] [address] [place], [place] [address]Dr. Hardeep Rivera Hemoglobin (Bld) [Mass/Vol] 12.9 g/dL Normal 12.0-16.0 [facility] Comment on above: Performed By: #### C BC ####[facility] [address] [id number]. Preethiarabella Miguel IG # 0.02 10e3/ul Normal 0.00-0.03 [facility] Comment on above: Performed By: #### C BC ####[facility] [address] [id number]. Hardeep Rivera IG % 0.3 % Normal 0.0-0.5 [facility] Comment on above: Performed By: #### C BC ####[facility] [address] [address]Dr. Hardeep Rivera LYMPH # 1.1 103/ul Critically low 1.2-3.8 [facility] Comment on above: Performed By: #### C BC ####[facility] [address] [address]Dr. Hardeep Rivera Lymphocytes/100 WBC (Bld) 16.6 % Critically low 20.5-60.0 [facility] Comment on above: Performed By: #### C BC ####[facility] [address] [address]Dr. Hardeep Rivera MANUAL DIFF REQ NO Normal [facility] Comment on above: Performed By: #### C BC ####[facility] [address] [id number]. Hardeep Rivera MCH (RBC) [Entitic mass] 29.7 pg Normal 26.7-34.0 [facility] Comment on above: Performed By: #### C BC ####[facility] [address] [place], [place] [id number]. Preethiarabella Rivera MCHC (RBC) [Mass/Vol] 33.7 g/dL Normal 29.9-35.2 [facility] Comment on above: Performed By: #### C BC ####[facility] [address] [id number]. Hardeep Rivera MCV (RBC) [Entitic vol] 88.2 fL Normal 81.0-99.0 [facility] Comment on above: Performed By: #### C BC ####[facility] [address] [id number]. Hardeep Rivera MONO # 0.7 103/ul Normal 0.3-0.8 [facility] Comment on above: Performed By: #### C BC ####[facility] [address] [id number]. Hardeep Rivera Monocytes/100 WBC (Bld) 11.1 % Normal 1.7-12.0 [facility] Comment on above: Performed By: #### C BC ####[facility] [address] [id number]. Hardeep Rivera NEUT # 4.6 103/ul Normal 1.4-6.5 [facility] Comment on above: Performed By: #### C BC ####[facility] [address] [address]Dr. Hardeep Rivera Neutrophils/100 WBC (Bld) 70.5 % Normal 43.0-75.0 [facility] Comment on above: Performed By: #### C BC ####[facility] [address] [address]Dr. Hardeep Rivera Platelet mean volume (Bld) [Entitic vol] 9.4 fL Critically low 9.5-13.5 [facility] Comment on above: Performed By: #### C BC ####[facility] [address] [address]Dr. Hardeep Rivera PLT 203 103/ul Normal 150-450 [facility] Comment on above: Performed By: #### C BC ####[facility] [address] [place], [place] [id number]. Hardeep Rivera RBC 4.34 106/ul Normal 4.20-5.40 [facility] Comment on above: Performed By: #### C BC ####[facility] [address] [address]Dr. Hardeep Rivera WBC 6.5 103/ul Normal 4.0-11.0 [facility] Comment on above: Performed By: #### C BC ####[facility] [address] [place], [place] [address]. Harde[address] ABD/PELVIS WO CONon 08-04 [...] ALEXSANDER HARDING Date: 2022-08-04 20:12 Normal [facility] Covid-19 PCR ([facility])on SARS-CoV-2 (COVID-19) RNA ULICES+probe Ql (Unsp spec) Not detected Normal NOT DETECTED [facility] Comment on above: Result Comment: When [...] for this test is supported by the [place] of Health and Human Service's declaration that [...] be used). Performed By: #### C VDTBH ####[facility] [address] [place], [place] [address]Dr. Hardeep Rivera ER URINE PROFILEon 2 Bilirubin Ql (U) Negative Normal NEGATIVE [facility] Comment on above: Performed By: #### E RUR #### [facility] [address] [place], [place] [address] Dr. Hardeep Rivera Clarity (U) CLEAR Normal CLEAR [facility] Comment on above: Performed By: #### E RUR #### [facility] [address] [address] [address] Hardeep Rivera Color (U) LT. YELLOW Normal YELLOW [facility] Comment on above: Performed By: #### E RUR #### [facility] [address] [place] [address] Dr. Hardeep FRANCIS A micrscopic examina tion will be performed if indicated. Normal [facility] Comment on above: Performed By: #### E RUR #### [facility] [address] [place] [address] Dr. Hardeep Rivera Glucose Ql (U) Negative Normal NEGATIVE [facility] Comment on above: Performed By: #### E RUR #### [facility] [address] [place] [address] Dr. Hardeep Rivera Hemoglobin Ql (U) Negative Normal NEGATIVE [facility] Comment on above: Performed By: #### E RUR #### [facility] [address] [place] [address] Dr. Hardeep Rivera Ketones Ql (U) Negative Normal NEGATIVE [facility] Comment on above: Performed By: #### E RUR #### [facility] [address] [place] [address] Dr. Hardeep Rivera LEUKOCYTES Negative Normal NEGATIVE [facility] Comment on above: Performed By: #### E RUR #### [facility] [address] [place] [address] Dr. Hardeep Rivera Nitrite Ql (U) Negative Normal NEGATIVE [facility] Comment on above: Performed By: #### E RUR #### [facility] [address] [place] [address] Dr. Hardeep Rivera pH (U) 7.0 [pH] Normal 5-9 [facility] Comment on above: Performed By: #### E RUR #### [facility] [address] [place] [address] Dr. Hardeep Rivera SPEC GRAVITY <=1.005 Abnormal 1.005-<=1.0 25 [facility] Comment on above: Performed By: #### E RUR #### [facility] [address] [address] [address] Hardeep Rivera UA PROTEIN Negative Normal NEGATIVE/ TRACE [facility] Comment on above: Performed By: #### E RUR #### [facility] [address] [address] [address] Hardeep Rivera UR MICRO IND NOT INDICATED Normal [facility] Comment on above: Performed By: #### E RUR #### [facility] [address] [address] [address] Hardeep Rivera Urobilinogen Qn (U) 0.2 {Kevon'U}/dL Normal 0.2 - 1. 0 [facility] Comment on above: Performed By: #### E RUR #### [facility] [address] [address] [address] Hardeep Rivera LIPASEon 08-04-2022 Lipase [Catalytic activity/Vol] 1486.0 U/L Critically high 73.0-393.0 [facility] Comment on above: Performed By: #### C MP, LIPA, BRITTNEY ####[facility] [address] [address]DrLaura Rivera PROF 14(COMP METB)on 022 Albumin [Mass/Vol] 3.6 g/dL Normal 3.4-5.0 [facility] Comment on above: Performed By: #### C MP, LIPA, BRITTNEY ####[facility] [address] [address]DrLaura Rivera Albumin/Globulin [Mass ratio] 1.3 {ratio} Normal [facility] Comment on above: Performed By: #### C MP, LIPA, BRITTNEY ####[facility] [address] [address]DrLaura Rivera ALP [Catalytic activity/Vol] 171 U/L Critically high 46-116 [facility] Comment on above: Performed By: #### C MP, LIPA, BRITTNEY ####[facility] [address] [address]DrLaura Rivera ALT [Catalytic activity/Vol] 35 U/L Normal 14-59 [facility] Comment on above: Performed By: #### C MP LIPA, BRITNTEY ####[facility] [address] [address]Dr. Hardeep Rivera Anion gap [Moles/Vol] 11.4 mmol/L Normal [facility] Comment on above: Performed By: #### C ARGENIS LIPA, BRITTNEY ####[facility] [address] [address]Dr. Hardeep Rivera AST [Catalytic activity/Vol] 28 U/L Normal 15-37 [facility] Comment on above: Performed By: #### C ARGENIS LIPA, BRITTNEY ####[facility] [address] [place], [place] [address]Dr. Hardeep Rivera Bilirubin [Mass/Vol] 0.7 mg/dL Normal 0.2-1.0 [facility] Comment on above: Performed By: #### C ARGENIS LIPA, BRITTNEY ####[facility] [address] [place], [place] [address]Dr. Hardeep Rivera Calcium [Mass/Vol] 8.4 mg/dL Critically low 8.5-10.1 [facility] Comment on above: Performed By: #### C ARGENIS LIPA, BRITTNEY ####[facility] [address] [place], [place] [address]Dr. Hardeep Rivera Chloride [Moles/Vol] 100 mmol/L Normal 98-107 [facility] Comment on above: Performed By: #### C MP LIPA, BRITTNEY ####[facility] [address] [place], [place] [address]Dr. Hardeep Rivera CO2 [Moles/Vol] 25.6 mmol/L Normal 21.0-32.0 [facility] Comment on above: Performed By: #### C ARGENIS LIPA, BRITTNEY ####[facility] [address] [place], [place] [address]Dr. Hardeep Rivera Creatinine [Mass/Vol] 1.33 mg/dL Critically high 0.55-1.02 [facility] Comment on above: Performed By: #### C MP LIPA, BRITTNEY ####[facility] [address] [address]Dr. Hardeep Rivera EGFR-AF KOSOVAN 47 mL/min/1.73m2 Critically low >=60 [facility] Comment on above: Performed By: #### C MP LIPA, BRITTNEY ####[facility] [address] [address]Dr. Hardeep Rivera EGFR-NON AF KOSOVAN 39 mL/min/1.73m2 Critically low >=60 [facility] Comment on above: Performed By: #### C MP, LIPA, BRITTNEY ####[facility] [address] [address]Dr. Hardeep Rivera Globulin (S) [Mass/Vol] 2.7 g/dL Normal [facility] Comment on above: Performed By: #### C MP, LIPA, BRITTNEY ####[facility] [address] [address]Dr. Hardeep Rivera Glucose [Mass/Vol] 108 mg/dL Critically high 74-106 [facility] Comment on above: Performed By: #### C MP, LIPA, BRITTNEY ####[facility] [address] [address]Dr. Hardeep Rivera Potassium [Moles/Vol] 4.0 mmol/L Normal 3.5-5.1 [facility] Comment on above: Performed By: #### C MP, LIPA, BRITTNEY ####[facility] [address] [address]Dr. Hardeep Rivera Protein [Mass/Vol] 6.3 g/dL Critically low 6.4-8.2 [facility] Comment on above: Performed By: #### C MP, LIPA, BRITTNEY ####[facility] [address] [place], [place] [address]Dr. Hardeep Rivera Sodium [Moles/Vol] 133 mmol/L Critically low 136-145 [facility] Comment on above: Performed By: #### C MP, LIPA, BRITTNEY ####[facility] [address] [address]Dr. Hardeep Rivera Urea nitrogen [Mass/Vol] 23.0 mg/dL Critically high 7.0-18.0 [facility] Comment on above: Performed By: #### C ABAD MORE AMY ####[facility] [address] [address]Dr. Hardeep Rivera Urea nitrogen/Creatinine [Mass ratio] 17.3 mg/mg Normal [facility] Comment on above: Performed By: #### C ABAD MORE AMY ####[facility] [address] [address]Dr. Hardeep Rivera Pre-Certification Formon Pre-Certification Form [id number]#[id number]:12 7 Normal [facility] BOX TEST SENT OUTon 08-02-20 22 SENT TO REF LAB 08/02/2022 Normal [facility] Comment on above: Performed By: #### Deedee PINON #### [facility] [address] [place] [address] Dr. Hardeep Rivera CBC AUTO DIFFon 08-02-2022 BASO # 0.0 103/ul Normal 0.0-0.1 [facility] Comment on above: Performed By: #### RANDALL OLSON #### [facility] [address] [place] [address] Dr. Hardeep Rivera Basophils/100 WBC (Bld) 0.3 % Normal 0.2-2.0 [facility] Comment on above: Performed By: #### RANDALL OLSON #### [facility] [address] [place] [address] Dr. Hardeep Rivera EO # 0.1 103/ul Normal 0.0-0.7 [facility] Comment on above: Performed By: #### RANDALL OLSON #### [facility] [address] [place] [address] Dr. Hardeep Rivera Eosinophils/100 WBC (Bld) 1.4 % Normal 0.9-7.0 [facility] Comment on above: Performed By: #### RANDALL OLOSN #### [facility] [address] [place] [address] Dr. Hardeep Rivera Erythrocyte distribution width (RBC) [Ratio] 12.2 % Normal 11.0-15.0 [facility] Comment on above: Performed By: #### HARI OLSONRO #### [facility] [address] [place] [address] Dr. Hardeep Rivera Hematocrit (Bld) [Volume fraction] 41.2 % Normal 36.0-48.0 [facility] Comment on above: Performed By: #### Deedee PINON UMICRO #### [facility] [address] [place] [address] Dr. Hardeep Rivera Hemoglobin (Bld) [Mass/Vol] 13.6 g/dL Normal 12.0-16.0 [facility] Comment on above: Performed By: #### Deedee PINON UMICRO #### [facility] [address] [place] [address] Dr. Hardeep Rivera IG # 0.02 10e3/ul Normal 0.00-0.03 [facility] Comment on above: Performed By: #### Deedee PINON UMICRO #### [facility] [address] [place] [address] Dr. Hardeep Rivera IG % 0.3 % Normal 0.0-0.5 [facility] Comment on above: Performed By: #### Deedee PINON UMICRO #### [facility] [address] [place] [address] Dr. Hardeep Rivera LYMPH # 0.6 103/ul Critically low 1.2-3.8 [facility] Comment on above: Performed By: #### Deedee PINON UMICRO #### [facility] [address] [place] [address] Dr. Hardeep Rivera Lymphocytes/100 WBC (Bld) 8.9 % Critically low 20.5-60.0 [facility] Comment on above: Performed By: #### Deedee PINON, UMICRO #### [facility] [address] [place] [address] Dr. Hardeep Rivera MANUAL DIFF REQ NO Normal [facility] Comment on above: Performed By: #### HARI OLSONRO #### [facility] [address] [place] [address] Dr. Hardeep Rivera MCH (RBC) [Entitic mass] 29.6 pg Normal 26.7-34.0 [facility] Comment on above: Performed By: #### HARI OLSONRO #### [facility] [address] [place] [address] Dr. Hardeep Rivera MCHC (RBC) [Mass/Vol] 33.0 g/dL Normal 29.9-35.2 [facility] Comment on above: Performed By: #### HARI OLSONRO #### [facility] [address] [place] [address] Dr. Hardeep Rivera MCV (RBC) [Entitic vol] 89.8 fL Normal 81.0-99.0 [facility] Comment on above: Performed By: #### HARI OLSONRO #### [facility] [address] [place] [address] Dr. Hardeep Rivera MONO # 0.7 103/ul Normal 0.3-0.8 [facility] Comment on above: Performed By: #### HARI OLSONRO #### [facility] [address] [place] [address] Dr. Hardeep Rivera Monocytes/100 WBC (Bld) 11.6 % Normal 1.7-12.0 [facility] Comment on above: Performed By: #### HARI OLSONRO #### [facility] [address] [place] [address] Dr. Hardeep Rivera NEUT # 5.0 103/ul Normal 1.4-6.5 [facility] Comment on above: Performed By: #### HARI OLSONRO #### [facility] [address] [place] [address] Dr. Hardeep Rivera Neutrophils/100 WBC (Bld) 77.5 % Critically high 43.0-75.0 [facility] Comment on above: Performed By: #### HARI OLSONRO #### [facility] [address] [address] [address] Hardeep Rivera Platelet mean volume (Bld) [Entitic vol] 9.4 fL Critically low 9.5-13.5 [facility] Comment on above: Performed By: #### Deedee PINON, HARIRO #### [facility] [address] [place], [place] [address] Dr. Hardeep Rivera PLT 200 103/ul Normal 150-450 [facility] Comment on above: Performed By: #### Deedee PINON, HARIRO #### [facility] [address] [address] [address] Hardeep Rivera RBC 4.59 106/ul Normal 4.20-5.40 [facility] Comment on above: Performed By: #### Deedee PINON, HARIRO #### [facility] [address] [address] [address] Hardeep Rivera WBC 6.4 103/ul Normal 4.0-11.0 [facility] Comment on above: Performed By: #### Deedee PINON, BENNETTRO #### [facility] [address] [address] [address] Hardeep Clark 08-02-2022 CNPN Telephone ([facility]) -- SYLVIA HERRERA ([id number]) 1945 F Date Time Provider Department 08/02/22 LOIDA MATHIAS [facility] During your visit today, we recorded the following information about you: Linden Faustina 08/02/2022 1:42 PM Signed Patient had labs drawn 08/02/22, uploaded to scanned docs. Loida Mathias APRN.[employer] 08/07/2022 10:27 AM Signed Received outside labs drawn 08/02 -- FK 4.7 Cr 1.4 BUN 21 K 3.9 FBS 119 WBC 6400 Hgb 13.6 Hct 41 Plts 200 My chart message sent to patient. Advised no changes. Asked that she keep us posted re: if she will be transferring her care. Loida Mathias APRN.[employer]ERINARIAN August 07, 2022 10:27 AM Allergies As [...] mg by mouth three times daily. - jvmosh-qepxpvks-hxjchpx (CREON) 24,000-76,000 -120,000 unit cpDR Take 3 [...] METB)on Anion gap [Moles/Vol] 12.2 mmol/L Normal [facility] Comment on above: Performed By: #### RANDALL OLSON #### [facility] [address] [address] [address] Hardeep Rivera Calcium [Mass/Vol] 8.6 mg/dL Normal 8.5-10.1 [facility] Comment on above: Performed By: #### RANDALL OLSON #### [facility] [address] [address] [address] Hardeep Rivera Chloride [Moles/Vol] 98 mmol/L Normal 98-107 [facility] Comment on above: Performed By: #### RANDALL OLSON #### [facility] [address] [address] [address] Hardeep Rivera CO2 [Moles/Vol] 27.7 mmol/L Normal 21.0-32.0 [facility] Comment on above: Performed By: #### AKSHAT OLSONICRO #### [facility] [address] [address] [address] Hardeep Rivera Creatinine [Mass/Vol] 1.42 mg/dL Critically high 0.55-1.02 [facility] Comment on above: Performed By: #### Deedee PINON, UMICRO #### [facility] [address] [address] [address] Hardeep Rivera EGFR-AF KOSOVAN 43 mL/min/1.73m2 Critically low >=60 [facility] Comment on above: Performed By: #### Deedee PINON UMICRO #### [facility] [address] [address] [address] Hardeep Rivera EGFR-NON AF KOSOVAN 36 mL/min/1.73m2 Critically low >=60 [facility] Comment on above: Performed By: #### Deedee PINON UMICRO #### [facility] [address] [address] [address] Hardeep Rivera Glucose [Mass/Vol] 119 mg/dL Critically high 74-106 [facility] Comment on above: Performed By: #### Deedee PINON, UMICRO #### [facility] [address] [address] [address] Hardeep Rivera Potassium [Moles/Vol] 3.9 mmol/L Normal 3.5-5.1 [facility] Comment on above: Performed By: #### Deedee PINON, UMICRO #### [facility] [address] [address] [address] Hardeep Rivera Sodium [Moles/Vol] 134 mmol/L Critically low 136-145 [facility] Comment on above: Performed By: #### Deedee PINON, UMICRO #### [facility] [address] [address] [address] Hardeep Rivera Urea nitrogen [Mass/Vol] 21.0 mg/dL Critically high 7.0-18.0 [facility] Comment on above: Performed By: #### E RANDALL PINON #### [facility] [address] [place], [place] [address] Dr. Hardeep Rivera Urea nitrogen/Creatinine [Mass ratio] 14.8 mg/mg Normal [facility] Comment on above: Performed By: #### E RANDALL PINON #### [facility] [id number] Hardeep Rivera Tacrolimus Bld-ncon 2021 Tacrolimus [...] Test performed by chemiluminescent immunoassay using [employer]. Performed By: #### 1 1253-2 ####[facility] LABCLIA [id number] [place] [address] [place] Giardia, Direct, EIAon 07-23 G. lamblia Ag IA Ql (Stl) Negative Invalid Interpretation Code Negative [facility] Comment on above: Result Comment: Perf ormed at: [facility] [id number] [place], [place] [id number] PhD Sommer Davis Performed By: #### 4 [id number], [id number] ####[facility] [address] [place] [address] O & P EXAM, ROUTINE, REFLEXo n 07-23-2022 Ova and parasites identified Concentration Nom (Stl) Comment Invalid Interpretation Code [facility] Comment on above: Result Comment: No o va, cysts, or parasites seen. One negative specimen does not rule out the possibility of a parasitic infection. Performed at: [address] [id number] PhD Sommer Davis Performed By: #### 4 [id number] ####[facility] [address] [place] [address] O & P Exam, Routineon 2021 Ova and parasites identified LM Nom (Unsp spec) Final report Invalid Interpretation Code [facility] Comment on above: Result Comment: Thes e results were obtained using wet preparation(s) and trichrome stained smear. This test does not include testing for Cryptosporidium parvum, Cyclospora, or Microsporidia. Performed at: [address] [id number] PhD Sommer Davis Performed By: #### 4 [id number] ####[id number] [place] [address] Consent for Procedure/Surger yon 07-19-2022 Consent for Procedure/Surgery [id number]:12 7 Normal [facility] CMV IgMon 07-18-2022 CMV IgM IA Qn <30.0 Invalid Interpretation Code 0.0-29.9 [facility] Comment on above: Result Comment: Nega tive <30.0 Equivocal 30.0 - 34.9 Positive >34.9 A positive result is generally indicative of acute infection, reactivation or persistent IgM production. Performed at: [address] [id number] PhD Sommer Davis Performed By: #### 1 [id number] ####[facility] [address] [place] [address] Coding Summary.on 07-18-2022 Coding Summary. [id number] Gh0bWw +PGhlYWQ+KX2TPARsI74zoAWbx I0ZE1tPIQ8CFAVFDEKYZB1FLO3 bfNW8DHacW7QrjtFt EzquzZSzIP51UIn7ONY5eEmrER delR7pfUMdR8z9WlFfFG76jP93 DRcgKQNfPuG0MmBmwbckrOHg K0zeIpEsuJMpPcj+PHRhYmxlIH mrBCKbAErmQBOmQqVpjObeCG0r Ad8vFZZbIZOsoMzrcIRgIsHo n0xpMIGfJWhaVQ3nePxcA3GapQ E5IJJbx6q1Ei77eIC+PHRkIHN0 tLadBVpks917UbAsz9tiUQE1 wUYyDCqpPDG8V12kg8V8JFEtXA WlVBW5gUX5cM6guPncmhbhV3Rw fHHtTjD5XVR7uPMhmH4dyMqb rjlrrC4jAyl+H50YIA5UFPCQQE 5UPav6A1LcQfacuXB+NN35AHZd HB47lHDdcIChy5jbsGn7QbLh FBOtSKE2lJekNOmgx3TaVSWiU5 9jhAUfv3N0HUZuyHkypVCfEhHc bJG2uC4ePIwkhjzoy7klflbc Tjjpr3mezk64lZ29E32fNCyfZU ZqMUM2HYMrIALjfDafdp2goI8b Ii8+QRmdx3ikc0tixHz3AwIa KRFgwdUpiFkmBQP3q3PmKv01J3 VyqLync6QhMkj7dc47vWAdu2I1 lLX0ELvoOLRbxE0uLXpuWrW6 LEBhCgQeaO81dHTdGMxyQw0qgV asiPmkDP0jEEVqtsbhDIBvuE4s OVOewLSpyTjkPG7vMTPphnbh m542EzTwWZI0QXWsfQKaK0EwgO 8aNzExBMWkWBVvQ5LbjGXeQDqj W207MDnqJkT8TLIoilDcJ7Wj WFQbuMqgXlI7x0F3Is0Vk2Togn jtOCH7XAmvWVI9WwY8DmTbPyX7 E7OxRpq7FVQypTrhLY5oG5Po ETKwaakefhdznNP1ZTZaHHQydJ 75tUUqGHmzQo5bk8J3g448AZGb SWLnnH61Bf5ffXspYHQybLLJ xN1ndyzwz3jytbzfBqRfWMOeSQ v2VKd4IYMbnDkjWmSzKVB8XkO9 QEZ1iWXjtB7snYtvdvfjlD1g Oyc+N74uxW3hZWI1TKE0kxvqBY JgwpBkFF08IC96L0LpFibsmHLa bGU+OGUiymPyeGfdNC0nRgPs y8vwv7NpDOzxT7DtUKByOKfyEq w7EXCuFUU3hSB9sM8yWCIxROhq f2Y4nSQ0E8NnsgIcbn0uy3gw ZHCkWJhoZ62gjOXqg6J2CPAlqM C8BIHxsOvyTmWtjJ90Swm+PGNv uSakv5KyQmmwl2vtb8qleNo8 DkMtGQSlvyGrbKjmLIJ7u0YnUa 84L96kOIhrPBCaMSBkMQSuWNYe rLagnr2snH5aBv4+PGNvbCB3 zGM1xZ5mRQZpZoD2PIwcU655Bc EyvNFjUmjev7fcy1dhaPh8GjQy MXQwtzOryKnlEPE1g3RhKu01 J75mXZqlZZLoGKDpPUGzPCVyhW xwhe2kqL0dHy8+BU4ke0gipx74 bW88jWE+VCZbHDB8vOadEFwt VPIwkY3cYLniYmC3IWTyFnQgwX 86vNEjHPcrQq3nmFkbrOpiQY7y UREsicmpt041KkOox0zwPGAb nMDyIRmgCQL4P13gm3F6BUDsRX BnQLQ3xNJ4bI8fmMwbfsrqwHGz tBjyxqWccAwkXIqhODinF896 IHRvcDsnPlBhdGllbnQgTmFtZT z9E7ZaIut3CUKyfMzaAS7gzCSz GMeqPo0njXfcgDeqDB1uGOYw ifsxg274FfImq7opAIGsdXGdEL qeJMI5N94oc7R3OIQgZINwDOY3 iAG2gF9miPnreogttAPtkOly rvJqjRkhZXrqFOrrP803FMGpiI soTrBrzuPbDEHmmFU1WU58NF58 hAEig6P0bIP4X8OaYYHmvbpq gcxfqST5XWAgQFBekR30Es9nmY ajFq2eZDHbCLK4KEXwxQBnT3Pb lE9rHoFwOMXsASToY7KpnCVs QCcwA008YGfiGaN5IGXvkzTiI3 VfNXIhiLfdLlF5o2U3Pr3RP3Z1 KV67AM47sZJkf3N3vAJ7D2Sl NCBgptqhveyheJJ7RZXmGGFmeC 05Op0rlSqlIl8nJFOsJYM2KNJi mINnH7SrzB6nXsAbSSAcKZDo Z2GblBGuVRsbW177YKccAoV0FE NgzsKxU0PeAGUteCibSpU3s3Q5 Xo6ERDn4SC44FY95jXMwz1W1 iIY6U3FsSCShureebeuspFV2NW WbUEGlwX21Lx2yxBvhJa9iVEAd HKL4ZYMymJMfQ6FgcH5nSzKg EXQyLHRbN5IavXIpOTniE173OQ hwHzU2WARpzpFlN1LlDYHefNmi QnU3u8Q6Xb6HVZFtSZ99VJU5 bOH3JF55IY72R2XtDgsjiEJtiX U+PHRhYmxlIHdpZHRoPScxMDAl UtSqtRyqMV7vEh4fANMfPNLh rIwngVGfNtHul6lsOIQxXVcoPM 3kdZrsI6BaoGC3AFFxr9i4Wd19 L75vO2PkySZ+JRKbaYA8iCD4 rJ6lUtHhRbA1NRvzH472XjIppN UnVlenc0bde1smfVr4PiQ4PIGy tzQfjDhbMEB1a9WiMi32K73g IHdpZHRoPSIxNSUiIHZhbGlnbj 5bwQ8zPw3+ZJKhrUN6eHV7lR0c CcTkUnT3TDqhC477CrSrgAXv Ojxdz2msn0kpcCd3PuHuZETqke FoyJapWAD8p7UpPd40D9QfnUaa p1LwHzu7dl14pHRjw6X0lTT7 L1XeDTYmdjvodWCgxDxcAD0oDL KmksftRKGmeG9jSCLvH2k8EdSf DxL8PPzyI1EojdC9NAQoyVYp GKnnQFK9U01fz5S3MVFuVPVsDE O9iHS0qO7tmAkmmqawlWYvmIao piZfdYiiFTryACpnY673LRXs xSdyJQSspA1nYCZebCMsyBilZU 4wNTBpbjsnPlBFTkNFLCBISUxE ENNZDI19II83xEUfe0V7xPP0 I1SvTAQbebieioohwZX6PGFcTT XzzO89tKJqCXfxEs7im5U4e411 LFUqJFYrlZ62Mi0mbYylEHFw zRBLvE5lharzt1iqfbbgNfVpGK UbRHk5BMt2RUSjyHjcQcNzBGU6 OxK1OVV8vIVooA6hjKxobasb wO2oNpf+JECmItOlQIl0YJnstF Q+YKEvUSS6fHpePPhtBXRueS1l FBSfK6z0TaAzZpL7YLdtZ3Ay UFNsvewaYh90cD0hZcIaOyH3LE kcX3ZawuU0VSFnvAOjLLcbIKC2 S60jp9C0DJSeFTEzBOW5nJP1 rR8smOazcjxayVRliBxtuvXgwH knEAxuFCofG067TYWlqNprUmf8 IMcsTHQxTW07TZ77dJEig6D3 eLN9S4MjVMQvnjrkhqzbiKJ2EB DyLLVfcT55uKSrNTxeKb7cp3C5 v586IAMtWRHdaP08Rh9qvQbr BYQljTLIbY4qrqxtf3uvgfdcQd VwRKUvXJg6IWu5AUGfvPzxFyTx SEZ5TmG9NCE6lQZrnY9qsAjh axhopF1zOxj+KaEwLAckAA49SI 33aMNca7S7rDJ3S8PdYFPdywiy ooerjFZ6CEGpUOSnyN23zSTe LUwbCh9gb5H7e337YWPqCJEyxJ 94Tg4wvPlhSAZykEKGrB0dzogw h1zfwhveAoNmUEFlVCq1MCa5 PFGncBzcFpKcBZG5InG2XDM7nE OciJ0htYfmzchxyC9vBuo+T3V0 dJW6bKOsnLvkpXA+HF35iw98 L1HrRxzvYtk3KDUaCXN2jCC5nA 5bJAJdGRbcu2E5nJQ6H6JrlrBu bx9qr8uuHYSrMPniV58dmAXk s5D1FUWylRP1DZKtpUblTzEufA 93Oyc+IHElqRpyx4FsMezpu6gi d4phaBk1XqPxZCPzxiCtqHwv IEV1y9IkIu00O90hWSzrCMJiHT DiUROqUIPnwZrmjs2ouR0jEb6+ FFJznPB3sNQ1wZ3cHcHoRmN1 CDjfP799XnCvwJPzJaqzu9bzh2 jriYe1RlCqVJNzjcBakSyfMXK5 i5UtYg72L6FshZxzm9LoOcp1 fe63uOLrs3B3bWA3N7XpPMXfos lzjSPgsTkpZT8hYKPfndfdLMLf jE5mKAJvO2e4UyRwAbN8TJom R5JbicE5TJJcpSPxFXEwfZVEoV 3baejxn3jtygxqXjBsONMgVMr0 UDh4AVJswHmmJcOnUAJ0QhH8 PKG8hGWtsH9ynRblbyqoyD5sKt c+YMj9j9bniMCpFX4qeYN3EJ31 BU35kRMmr6J6kBO9L7MiLCXl qdwrusscwYP1YNSbKVSljF22Zz 1heIztZv8iBSAqOLF9DCIskUFo S2GjbN7vUzQqQXRwRJIiJ8Gb rRNmDEemV826AGopYjW8WIQcwv SeM5SnPZSubSgkKuN7g1D8Xa8F AF48WB80YG51lUYqk7D0jIL4 V6GfNWYplafdcdfzwUU7KGXmCZ JzjH89Ri0xjTgaVs3mCQCeXQH7 ETEjsVYzR7DpvX4rBtAqTRSe JGDaL1AubNQtNSlkJ332TZglJr X3IPDewzCnO6YuMXOmvVolDtW7 p9K7Jt7WGc03JA86PW90lRQc j2D9tPB9P5LrQRVwueeqfwoavI Y6IXXqMLIejQ61Qt9ucOyuLz6f LHOmYPO8ENNmbPYbQ1UgwE4a MtPlJOQyYPMmT4HgjVGhAUbpB0 40ULvtUlS0MLPytdOqZ6VmPNPn oHywJiH3m7I3Hz9MTQwfqzs0 N4ClIgjfeVH+YI74BDPuGC82xL CccPBbv3tnbPb7YfCqEADjVAR2 mKgvMAxgz4BbLMSoV42ldYLl c2U6 (more content not included)... Normal [facility] Coding Summary. CD:[id number] Gh0bWw +PGhlYWQ+FN8QRXXcB44qoXDub Z4FA8gQBI2SCKOZTCUHOE3XXL9 xcUC1KMfzY2WeozYj ThuepJEoNC51DCa4PLF1dWwySA hwuO7pgALiT3f0VlWsIH87sI26 AWppZPAjQbK3MjYjcnrnxPEy K4bvWqEwoRDzTak+PHRhYmxlIH tfDVGpAEsgNPKjQnDeyZomRT1t Tf1wJGFpZVNfyXxrzMAbCvAm h4ohEOXvHUpnUZ8mdAejJ0IlwE U8OEJxu8s7Gw32zCU+PHRkIHN0 mAdrZCoro156JyYtb4lxNSK0 gGPvUYaqPKG2W24fz1Q9DPLgLC DkHOB4oGL3kG1wdGoembrpU1Lx bFOlWrF7XUB5zTYqvC3fpLxd ryxwpR3tQpb+T03NMC6HDBBQKM 0TTra1U5PdEpvowFS+EZ66OMNr QI29tAUqoHZwx5krvJu9EhRt HVGnRNA7sXmqVRkxc8BhYYTkM1 1ovIYmt0K6GFVfkBtqnMKlBeTu xHU3sM3oONogciztr4auuqvy Mnneo9lwlw99nR88U02iJBdbBA DbFAU5FCMzTUPlkLwfbh9tvQ6p Ii8+OVtfb4xhc4fozAb3ZiTr RNKssfJnbDnxZMA6y1BgJv85U0 QatGbnd9AaTnf9ms66yZVqm4F2 oPL1KEdwZAToeT6oYJvkGjB7 QHAlHiHwqX59qOJoMGwvXt3frD sucNagUC9iRKBxiwzaQTRnaR3y MPHwoXWzhOxlMX2hGIFlacdw q874CpGtILZ5GJIcjOFsW6IhrV 8jXgItZBYzLTQtK5IscPCbJNlh Q782LOfnJcY3EHEqrkLkO9De RJZvcNesNbF4h5L7Ra0Nw9Efoi ghQHQ2WOyuQYU3NfU7MfUyYkI4 V1ZaZqr6TUQdwCdxRT4oG6Em DUXyvscesxdokAG2UEAaKDOqkK 70iFCoETliFo7mw1J0d487KJHl EAVrtB57Hc7rjFsiCGYvhDWP fV8eonnop8qtbzzoSkRkUSCsPO k6LHv9VZQhnNxvWcJsNHU9ErS8 TCB1eQJvtW2qdFaiakhsfJ0p Oyc+E73vjU3uBMS7CQQ1mnuaBD YywbEbGG02HL72O0FrLbdanJEw bGU+PLYvkcRfbLxtNI8pNySs c6kwt8TnNAjuU7FmFDNbFErvPo x5NVQbAZS2qPE6yU0aDZHbMQuz x2M9jET3O5HquoKmxz5bq3yk UXNuNLqxW86dyLHxv4L6KAFbpR T6MPKfxMclRaXpdO59Ffi+PGNv oCqkh3WxDxpyf5jhm7pwiAq6 LiUdSJKxcqLuvSgxOZY6l6OrLi 56C77rAWvgRRLzEMQpBDNzFZUh eMjvif7shB8rUa9+PGNvbCB3 dFM3oY9lWSEgMjR8TKphC869Wj AanTRpSoojh2cxd3msvXv5ZcCw PNAvznKabYmgVSY3k6RsHe35 W33uQMsvHGUfAFPtKSFmKOBpqU yuhz6ttO3cAr8+OQ2zq8yvhz86 zK83lEP+JIIzILJ2vYpgUMhx JIGhxN4eXUhtDrK5HSWqOrDfeC 43kJRqWHnfWe5iqTxnlBvfTH4s COBkadldv654IkNsw9qwUXSg eUNpYRmyWXR7D39mr8I6FMZhYE AcMXH3wZX2zO1mhUjcditsuDOm bEjbebKggMjyOZveZJqpY139 IHRvcDsnPlBhdGllbnQgTmFtZT k9S0GvSxf7CKUdtYymUZ7bpXFt NJquEd5mrUhxlJlbLT7hBQWl amfja219XlYzs7vbBIGccZTyNJ yiOMH1C69xm4G9HQMaAUIzHPE8 gNP1sD8ntDnoxfrmgHRdjSeq maXaiFnbTUjyILqiQ721MJUaiC wpHsAwhrFtZNYfhTB9MI18AT72 vQKss1G1fBM6A6MaZURniydl xqdfcVN3UMUpMJKpvZ76Wj3abG teSl2jLVQrHSA9XZUtvGVqH1Kj nV5cWnQyIZCkKULbD9IwyZSu QFawG316IRodLwY0TEInrjVuJ8 MvFMOacXbwIuP1p3Y4Iz2AB6K5 BM55DR94eVMpx1Y8aQM5M1Pd AQPscpnkfwlkyXD3HMOzZJOpmM 33Hz8kuVeeRy2pAZHmGBD5DFDb pKHwW8XfuO4xMlQnOPWqVALb V8AyfLMcMXkyI267BMcvOhS0JR PredDbP3CzZVLagQizPfV2b6M2 Jf5TBCc2VV56FS30qJWyo1Y6 kAE6Z1XxNGLrvvbiyombbJB2EW ZjEFOkqO41Oc7kyToyDs8kBGAm OUA1OJQnhIUeP7KsbE9hYsZv BHIbXRFxR5KkmQEbLPzsM423AN laXkF8XFJdenEeV6YxPBJtmKne HsJ7l5G7Kq6TLMSlXH87NVR7 kMI8OZ87GR13W7IcImdjuRJvuZ U+PHRhYmxlIHdpZHRoPScxMDAl YyQjaQmsEQ2zGf6qQQMhVFRx mYaimMSuAjMoq8hmMYPpNUnxLM 3vtEngA8XelNN2XKZsw0f9Nt84 M05dT1YgkTM+UKBfiFZ7bHW4 eT6kPfYjYfE9VZvkK105SmGcaJ PkMhrnr7omn5jgnKa3CmW8GAXd crUymLruBQX5y8UuEh96U23a IHdpZHRoPSIxNSUiIHZhbGlnbj 0raO1cJm2+XDMteRI4kEQ7pM0e RhIhReH4BKqpJ972BnUppIAp Nbvmc6dtb4aisRj7VePrSMGyxt YonDftXYJ4m7DaAc64U8SraJzo z0PjOkq1yo11rSXtc6H4jDO4 I2ShVPOhcnzpeYIhqWufWS7nKY LtgirsEVQanM1vRGGxO9e9HnQc AiU9SWpkO0PhajP4QNFnqBWc AKuoYIA3J88do8M9IKPyPBSrYO C2uEJ4rY2ddKwgndztuRBsuCiv paQpvDagVKfwRAurC000DHTf vRgbYEKczY9dJFUbzAEsoRadUO 4wNTBpbjsnPlBFTkNFLCBISUxE CWDYMF30HK49tUJpl1U0pYI4 M5TlUWLvauqjjzvkhZU8JCNdII GdzH07jRSuXUypAo2op2L0k050 ZXCtKHCnaD26Gc9mhKfjZRUx aRXHiN6ywunre6ncneduOtHcOD IxFQz5EMx4YVAbhKlbTfVxYFU0 SnI7HOK2vTStxQ9gdIzevtrp kX6jHzu+UGCgPyUzMRy5QMbmsQ Q+CFOrDJX4xSyiRJnbXDVovT3u VGVzA7w7NjAqHsD2VAczN0Bz USHyxwzyOw56sH5zNkZqOxA9AV ttY9SbquQ1YJVrxAFfRMtwLMG2 L72aa8Y8IGGjIFNoFTG9fWV9 nW1mcNorlrinlDKuxWopziAzjP ayTIlxUEuiT771QCSwaKnrFmn8 ISsrLGJmPQ87MI33aFNth4L6 kYJ3T0IfZIAdeekpkjaeuMW0PV VpVVNqjB63pZPzZDgtNw4kc9Z6 e474NYOyNUXbbT13Tz8zdIgz WUAteEQNwF2evmpet2jnybgkBe EqHZDrEIy1ZXs1ILJwcYyoErBt XND7JfE1DLY8tAUzcI8feJfp clrnjA9xOns+NnIgQNjnIV38YL 37iBLmx5V8wJW8X7JnNTSvojzo qoxebFE7YNGtPYKwoF57lJDq FVckWe8cf3P1f050BXNaVBZltL 19Lj4iuNizFJTiwHDJhC4zipfc l1ueqtapLxLkQTHpBVr5FTu6 DQTfjXblKsAvFQR2DsX3SZO3nW ZxcM2qaKmwkwvdhJ8vJak+TGFi UEZjm2Jal3WjUO51GL97Y7Uc PjwvdGFibGU+PHRhYmxlIHdpZH RkQNyaGXFiJeCgxDqmEY2mQe9r SDWlSJSibIgjgBJwDiIdv0gz RJOdQEfcMX9llXkuC4ZmdSM7NN Mzg5q6Sk36H71eA5CqdXQ+PGNv iUX5lST3zJ4fKrOxPcB5YWam K591ChTyvBViGafql7wbg5oyeM o8VfZhVLGzhsCzzRolYDH3f4Rn Kc19J96nMCaqDGBlUMHkEVHt JZXtiShoms7kyE4hZv0+PGNvbC Q4xXN5nR8iIuBsAgD6NRuaM615 RoHcePYsMbkjX92yW4IdiSM+ FVRwWep6JVVvuLhlQI1sjYLxZC vqLm7lLRT1FwGjZwKtAZcvQ1Pd ULKznrfmppdgiLV0ULGlPIFh cL61Sa0wzAnnGy3iEDHaNAW9SH YkzLXrZ8MxmN5dDgWhOVIgZAUp T9EkxPLeINneV369OJrwSbN4 LWNiblEiJ0DbOMGkxIouQsK6l5 H2Fv5ZpSkpdCYfUW3bMaGrQEn7 H2ZdZvk1BJBrxLijDA7glOFx GJpfHp1vwCgqrHzrHA2bTRIkuc ycg450ZfKul6zmZOEtfXNwXSqe AGZ4L27cv4N8JZMuIUGhUSN8 zWG3rS6jxCwwpmjzuRIpeGjzxq PceJlrONgtBQdwM337WDTieDch MoWKHum2N9VnRzk8YWJwuVka PY2oiENyMCjbEq9ezTwrxEacLC 3nWYSmjlqvy281JlEpo2ylSOYb vTYvGZvmHLD5S52ut7L1DGDz XJBsBLI4rYB4kW0taZxlhgtjcD KdgThuszHwqVbeNAmgCQotF550 PXKqmUzvTj1CKji5O9YcBhu5 QLVqjDegDE5zaTCfQBiqZx7ubH fomOzuJM4nVNCmrsryp531OhNf k9fcFCQwySQyBJjcEAF0Y89m f7K0THZmTUEwNRI5jIH5pH5ztU lnbjogbGVmdDsgdmVydGljYWwt CKllL722TIEjpSnxRdAugEAp OjwvdGQ+GV40cg10U1TbEjusOb e7ZNRwRJH6jZL5zY7jBRDsVMat r1Y3uMT2Y2BizjZqfx3qg8oc YXBz (more content not included)... Normal [facility] Enteric Panel by PCRon 07-18 C. coli+jejuni+upsalien sis DNA ULICES+non-probe Ql (Stl) Not detected Normal [facility] Comment on above: Result Comment: Test ing was performed utilizing reverse rolled gold plater (RT), polymerase chain reaction (PCR), and array [...] nulcleic acid test. Performed By: #### 4 [id number], [id number], [id number], [id number], [id number], [id number] ####[facility] [address] [place] [address] E. coli stx1+stx2 genes ULICES+non-probe Ql (Stl) Negative Normal [facility] Comment on above: Performed By: #### 4 [id number], [id number], [id number], [id number], [id number], [id number] ####[facility] [address] [place] [address] Enteric Panel by PCR Negative Normal [facility] Enteric Panel Intrl QC Pass Normal [facility] Comment on above: Result Comment: Test ing was performed utilizing reverse rolled gold plater (RT), polymerase chain reaction (PCR), and array [...] 1 and 2. Performed By: #### 4 [id number], [id number], [id number], [id number], [id number], [id number] ####[facility] [address] [place] [address] Norovirus genogroup I+II RNA ULICES+non-probe Ql (Stl) Detected Abnormal [facility] Comment on above: Result Comment: Resu lts Called To [facility] for Dr. Jama By [facility] And Read Back For Confirmation On 07/18/2022 08:49:23 EDT. Performed By: #### 4 [id number], [id number], [id number], [id number], [id number], [id number] ####[facility] [address] [place] [address] Rotavirus A RNA ULICES+non-probe Ql (Stl) Not detected Normal [facility] Comment on above: Performed By: #### 4 [id number], 80653580, 94982766, [id number], [id number], [id number] ####[facility] [address] [place] [address] S. enterica+bongori DNA ULICES+non-probe Ql (Stl) Not detected Normal [facility] Comment on above: Result Comment: This test result should be correlated with clinical presentations and medical history by a healthcare provider to determine its clinical significance. Performed By: #### 4 [id number], [id number], [id number], [id number], [id number], [id number] ####[facility] [address] [place] [address] Shigella species+EIEC invasion plasmid antigen H ipaH gene ULICES+non-probe Ql (Stl) Not detected Normal [facility] Comment on above: Performed By: #### 4 [id number], [id number], 16052581, [id number], 47027870, [id number] ####[facility] [address] [place] [address] V. cholerae+parahaemoly ticus+vulnificus DNA ULICES+non-probe Ql (Stl) Not detected Normal [facility] Comment on above: Performed By: #### 4 [id number], [id number], 49288259, [id number], 78634276, 16631086 ####[facility] [address] [place] [address] Y. enterocolitica DNA ULICES+non-probe Ql (Stl) Not detected Normal [facility] Comment on above: Performed By: #### 4 [id number], 58313064, 06152585, [id number], 50363869, [id number] ####[facility] [address] [place] [address] C. diff by PCRon 07-17-2022 Clostridium difficile by PCR see comment Invalid Interpretation Code [facility] Comment on above: Result Comment: Unab [...] its clinical significance. Performed By: #### 4 [id number], [id number], 87368041, [id number], [id number], [id number] ####[facility] [address] [place] [address] Fecal WBC Lactoferrinon 07-02 Fecal WBC Lactoferrin Positive Abnormal Negative [facility] Comment on above: Result Comment: The semi-quantitative detection of elevated levels of fecal lactoferrin is a marker for fecal leukocytes and an indication of intestinal inflammation. Performed By: #### 4 [id number], 12920188, 49006308, [id number], 26393224, [id number] ####[facility] [address] [place] [address] Consent for Treatmenton 07-02 Consent for Treatment [id number]:127 Normal [facility] Gastroenterology Office/Clin ic Noteon 07-15-2022 Gastroenterology Office/Clinic Note Chief Complaint f/u ER- abd pain, diarrhea and vomiting HPI Staff This is a 76 year old female who presents today for a referral by Sue for abnormal radiology testing. Patient seen in [place] ER 01/2022 for complaints of diarrhea, abdominal pain and nausea.- CT and labs completed History of Present Illness Sylvia presents today for abdominal pain, diarrhea, and vomiting. She was recently seen in the [place] emergency room with abdominal pain, diarrhea, and vomiting. She notes that she had a heart transplant in [place] in 2017. Afterwards she experienced diarrhea which [...] She was prescribed Creon 24 mg at [facility] in 2017, due to being diagnosed [...] patient had a recent CT scan at [facility] that showed a small lesion in [...] by h (more content not included)... Normal [facility] Comment on above: Result Comment: Elec [...] insufficiency Pancreatic lesion Valvular heart disease Normal [facility] 07-05-2022 CNPN Telephone ([facility]) -- SYLVIA HERRERA ([id number]) 1945 F Date Time Provider Department 07/05/22 [facility] During your visit today, we recorded the following information about you: Sho Crowley APRN.POULTRY VETERINARIAN 07/05/2022 10:48 AM Signed 07/03/22 labs: FK: [...] care with another team. Sho Crowley APRN, POULTRY VETERINARIAN Pager: [phone] July 05, 2022 10:42 AM Post Heart [...] transplant. No Dr Ellerp: Rfl: TACROLIMUS/FK-506 BL [[id number]] Order #: [id number] FUTURE Prescriptions as of 07/05/2022 - tacrolimus [...] mg by mouth three times daily. - smcrwc-snadbznw-gsvmemt (CREON) 24,000-76,000 -120,000 unit cpDR Take 3 [...] 09/02/2019 A (more content not included)... Normal [facility] BOX TEST SENT OUTon 07-03-20 SENT TO REF LAB 07/03/2022 Normal [facility] Comment on above: Performed By: #### E RANDALL PINON #### [facility] [address] [address] [address] Hardeep Rivera CBC AUTO DIFFon 07-03-2022 BASO # 0.0 103/ul Normal 0.0-0.1 [facility] Comment on above: Performed By: #### C BC #### [facility] [address] [address] [address] Hardeep Rivera Basophils/100 WBC (Bld) 0.3 % Normal 0.2-2.0 [facility] Comment on above: Performed By: #### C BC #### [facility] [address] [address] [address] Hardeep Rivera EO # 0.1 103/ul Normal 0.0-0.7 [facility] Comment on above: Performed By: #### C BC #### [facility] [address] [address] [address] Hardeep Rivera Eosinophils/100 WBC (Bld) 0.9 % Normal 0.9-7.0 [facility] Comment on above: Performed By: #### C BC #### [facility] [address] [place] [address] Dr. Hardeep Rivera Erythrocyte distribution width (RBC) [Ratio] 12.2 % Normal 11.0-15.0 [facility] Comment on above: Performed By: #### C BC #### [facility] [address] [place] [address] Dr. Hardeep Rivera Hematocrit (Bld) [Volume fraction] 42.3 % Normal 36.0-48.0 [facility] Comment on above: Performed By: #### C BC #### [facility] [address] [place] [address] Dr. Hardeep Rivera Hemoglobin (Bld) [Mass/Vol] 14.0 g/dL Normal 12.0-16.0 [facility] Comment on above: Performed By: #### C BC #### [facility] [address] [place] [address] Dr. Hardeep Rivera IG # 0.04 10e3/ul Critically high 0.00-0.03 [facility] Comment on above: Performed By: #### C BC #### [facility] [address] [place] [address] Dr. Hardeep Rivera IG % 0.5 % Normal 0.0-0.5 [facility] Comment on above: Performed By: #### C BC #### [facility] [address] [place] [address] Dr. Hardeep Rivera LYMPH # 0.8 103/ul Critically low 1.2-3.8 [facility] Comment on above: Performed By: #### C BC #### [facility] [address] [place] [address] Dr. Hardeep Rivera Lymphocytes/100 WBC (Bld) 10.9 % Critically low 20.5-60.0 [facility] Comment on above: Performed By: #### C BC #### [facility] [address] [place] [address] Dr. Hardeep Rivera MANUAL DIFF REQ NO Normal [facility] Comment on above: Performed By: #### C BC #### [facility] [address] [place] [address] Dr. Hardeep Rivera MCH (RBC) [Entitic mass] 29.7 pg Normal 26.7-34.0 [facility] Comment on above: Performed By: #### C BC #### [facility] [address] [place] [address] Dr. Hardeep Rivera MCHC (RBC) [Mass/Vol] 33.1 g/dL Normal 29.9-35.2 [facility] Comment on above: Performed By: #### C BC #### [facility] [address] [place] [address] Dr. Hardeep Rivera MCV (RBC) [Entitic vol] 89.8 fL Normal 81.0-99.0 [facility] Comment on above: Performed By: #### C BC #### [facility] [address] [place] [address] Dr. Hardeep Rivera MONO # 0.9 103/ul Critically high 0.3-0.8 [facility] Comment on above: Performed By: #### C BC #### [facility] [address] [place] [address] Dr. Hardeep Rivera Monocytes/100 WBC (Bld) 11.1 % Normal 1.7-12.0 [facility] Comment on above: Performed By: #### C BC #### [facility] [address] [place] [address] Dr. Hardeep Rivera NEUT # 5.8 103/ul Normal 1.4-6.5 [facility] Comment on above: Performed By: #### C BC #### [facility] [address] [place] [address] Dr. Hardeep Rivera Neutrophils/100 WBC (Bld) 76.3 % Critically high 43.0-75.0 [facility] Comment on above: Performed By: #### C BC #### [facility] [address] [place] [address] Dr. Hardeep Rivera Platelet mean volume (Bld) [Entitic vol] 9.5 fL Normal 9.5-13.5 [facility] Comment on above: Performed By: #### C BC #### [facility] [address] [place] [address] Dr. Hardeep Rivera PLT 191 103/ul Normal 150-450 [facility] Comment on above: Performed By: #### C BC #### [facility] [address] [address] [address] Hardeep Rivera RBC 4.71 106/ul Normal 4.20-5.40 [facility] Comment on above: Performed By: #### C BC #### [facility] [address] [place] [address] Dr. Hardeep Rivera WBC 7.6 103/ul Normal 4.0-11.0 [facility] Comment on above: Performed By: #### C BC #### [facility] [address] [place] [address] Dr. Hardeep Rivera CNPMary Kay 07-03-2022 CNPN Telephone ([facility]) -- SYLVIA HERRERA ([id number]) 1945 F Date Time Provider Department 07/03/22 [...] mg by mouth three times daily. - pkjtec-flnwdzol-zrljskj (CREON) 24,000-76,000 -120,000 unit cpDR Take 3 [...] METB)on Anion gap [Moles/Vol] 12.9 mmol/L Normal [facility] Comment on above: Performed By: #### Deedee PINON UMICRO #### [facility] [address] [place] [address] Dr. Hardeep Rivera Calcium [Mass/Vol] 9.0 mg/dL Normal 8.5-10.1 [facility] Comment on above: Performed By: #### Deedee PINON UMICRO #### [facility] [address] [place] [address] Dr. Hardeep Rivera Chloride [Moles/Vol] 98 mmol/L Normal 98-107 [facility] Comment on above: Performed By: #### Deedee PINON UMICRO #### [facility] [address] [address] [address] Hardeep Rivera CO2 [Moles/Vol] 28.1 mmol/L Normal 21.0-32.0 [facility] Comment on above: Performed By: #### Deedee PINON UMICRO #### [facility] [address] [address] [address] Hardeep Rivera Creatinine [Mass/Vol] 1.64 mg/dL Critically high 0.55-1.02 [facility] Comment on above: Performed By: #### Deedee PINON, UMICRO #### [facility] [address] [place] [address] Dr. Hardeep Rivera EGFR-AF KOSOVAN 37 mL/min/1.73m2 Critically low >=60 [facility] Comment on above: Performed By: #### RANDALL OLSON #### [facility] [address] [place] [address] Dr. Hardeep Rivera EGFR-NON AF KOSOVAN 30 mL/min/1.73m2 Critically low >=60 [facility] Comment on above: Performed By: #### HARI OLSONRO #### [facility] [address] [place] [address] Dr. Hardeep Rivera Glucose [Mass/Vol] 114 mg/dL Critically high 74-106 [facility] Comment on above: Performed By: #### HARI OLSONRO #### [facility] [address] [place] [address] Dr. Hardeep Rivera Potassium [Moles/Vol] 4.0 mmol/L Normal 3.5-5.1 [facility] Comment on above: Performed By: #### HARI OLSONRO #### [facility] [address] [place] [address] Dr. Hardeep Rivera Sodium [Moles/Vol] 135 mmol/L Critically low 136-145 [facility] Comment on above: Performed By: #### HARI OLSONRO #### [facility] [address] [place] [address] Dr. Hardeep Rivera Urea nitrogen [Mass/Vol] 24.0 mg/dL Critically high 7.0-18.0 [facility] Comment on above: Performed By: #### HARI OLSONRO #### [facility] [address] [place] [address] Dr. Hardeep Rivera Urea nitrogen/Creatinine [Mass ratio] 14.6 mg/mg Normal [facility] Comment on above: Performed By: #### HARI OLSONRO #### [facility] [address] [place] [address] Dr. Hardeep Rivera [facility] (Bld) [Mass/Vol] 12.4 ng/mL [...] Test performed by chemiluminescent immunoassay using [employer] Worker. Performed By: #### 1 1253-2 ####[facility] LABCLIA [id number] [place] [address] [place] MG MAMM SCREEN 3D TRISHA CADon 05-28-2022 MG MAMM SCREEN 3D TRISHA CAD Patient: SYLVIA HERRERA Exam Date: 05/28/2022 : 1945 Gender:F Ordering : DR TAO ROONEY . Admission #: [id number] Family : Order #: [id number] CLICK HERE TO VIEW EXAM RADIOLOGY REPORT [...] Treatments None Family Cancers None LOCATION: [facility] BREAST COMPOSITION: Heterogeneously dense,which may obscure [...] MD on 05/28/2022 at 10:20 Normal [facility] Physician Referralon 022 Physician Referral [id number]:127 [facility] 05-08-2022 ODETTEN Telephone ([facility]) -- SVETLANASYLVIA BELL ([id number]) 1945 F Date Time Provider Department 05/08/22 LOIDA MATHIAS [facility] During your visit today, we recorded the following information about you: Linden Weems 05/08/2022 11:50 AM Signed Patient had labs drawn 05/07/22, uploaded to scanned docs. Linden Weems Administrative Internal Corrosion Specialist Loida Mathias APRN.CNP 05/08/2022 3:21 PM Signed [...] home. She will keep us posted. Loida aMthias APRN.CNP May 08, 2022 3:19 PM Component [...] transplant. No Dr Ellerp: Rfl: TACROLIMUS/FK-506 BL [[id number]] Order #: [id number] FUTURE Prescriptions as of 05/08/2022 - tacrolimus [...] mg by mouth three times daily. - eytfek-lkcvbwnb-hewifty (CREON) 24,000-76,000 -120,000 unit cpDR Take 3 [...] 05/19/2014 [facility] (more content not included)... Normal [facility] BOX TEST SENT OUTon 05-07-20 22 SENT TO REF LAB 05/07/2022 Normal [facility] Comment on above: Performed By: #### E RUR, UMICRO #### [facility] [address] [place] [address] Dr. Hardeep Rivera CBC AUTO DIFFon 05-07-2022 BASO # 0.0 103/ul Normal 0.0-0.1 [facility] Comment on above: Performed By: #### E RUR, UMICRO #### [facility] [address] [place] [address] Dr. Hardeep Rivera Basophils/100 WBC (Bld) 0.4 % Normal 0.2-2.0 [facility] Comment on above: Performed By: #### Deedee PINON, UMICRO #### [facility] [address] [address] [address] Hardeep Rivera EO # 0.1 103/ul Normal 0.0-0.7 [facility] Comment on above: Performed By: #### Deedee PINON, UMICRO #### [facility] [address] [address] [address] Hardeep Rivera Eosinophils/100 WBC (Bld) 1.0 % Normal 0.9-7.0 [facility] Comment on above: Performed By: #### E RUR, UMICRO #### [facility] [address] [address] [address] Hardeep Rivera Erythrocyte distribution width (RBC) [Ratio] 12.6 % Normal 11.0-15.0 [facility] Comment on above: Performed By: #### E RUR, UMICRO #### [facility] [address] [place] [address] Dr. Hardeep Rivera Hematocrit (Bld) [Volume fraction] 44.0 % Normal 36.0-48.0 [facility] Comment on above: Performed By: #### HARI OLSONRO #### [facility] [address] [place] [address] Dr. Hardeep Rivera Hemoglobin (Bld) [Mass/Vol] 14.0 g/dL Normal 12.0-16.0 [facility] Comment on above: Performed By: #### HARI OLSONRO #### [facility] [address] [place] [address] Dr. Hardeep Rivera IG # 0.02 10e3/ul Normal 0.00-0.03 [facility] Comment on above: Performed By: #### HARI OLSONRO #### [facility] [address] [place] [address] Dr. Hardeep Rivera IG % 0.3 % Normal 0.0-0.5 [facility] Comment on above: Performed By: #### HARI OLSONRO #### [facility] [address] [place] [address] Dr. Hardeep Rivera LYMPH # 0.6 103/ul Critically low 1.2-3.8 [facility] Comment on above: Performed By: #### HARI OLSONRO #### [facility] [address] [place] [address] Dr. Hardeep Rivera Lymphocytes/100 WBC (Bld) 8.2 % Critically low 20.5-60.0 [facility] Comment on above: Performed By: #### HARI OLSONRO #### [facility] [address] [place] [address] Dr. Hardeep Rivera MANUAL DIFF REQ NO Normal [facility] Comment on above: Performed By: #### HARI OLSONRO #### [facility] [address] [place] [address] Dr. Hardeep Rivera MCH (RBC) [Entitic mass] 29.4 pg Normal 26.7-34.0 [facility] Comment on above: Performed By: #### HARI OLSONRO #### [facility] [address] [place], [place] [id number] Dr. Hardeep Rivera MCHC (RBC) [Mass/Vol] 31.8 g/dL Normal 29.9-35.2 [facility] Comment on above: Performed By: #### Deedee PINON, UMICRO #### [facility] [address] [place] [address] Dr. Hardeep Rivera MCV (RBC) [Entitic vol] 92.2 fL Normal 81.0-99.0 [facility] Comment on above: Performed By: #### E KATHRIN, UMICRO #### [facility] [address] [place] [address] Dr. Hardeep Rivera MONO # 0.8 103/ul Normal 0.3-0.8 [facility] Comment on above: Performed By: #### Deedee PINON, UMICRO #### [facility] [address] [place] [address] Dr. Hardeep Rivera Monocytes/100 WBC (Bld) 9.6 % Normal 1.7-12.0 [facility] Comment on above: Performed By: #### Deedee PINON, UMICRO #### [facility] [address] [place] [address] Dr. Hardeep Rivera NEUT # 6.3 103/ul Normal 1.4-6.5 [facility] [facility] Comment on above: Performed By: #### Deedee PINON, UMICRO #### [facility] [address] [place] [address] Dr. Hardeep Rivera Neutrophils/100 WBC (Bld) 80.5 % Critically high 43.0-75.0 [facility] Comment on above: Performed By: #### Deedee PINON, UMICRO #### [facility] [address] [place] [address] Dr. Hardeep Rivera Platelet mean volume (Bld) [Entitic vol] 10.1 fL Normal 9.5-13.5 [facility] Comment on above: Performed By: #### E KATHRIN, UMICRO #### [facility] [address] [place] [address] Dr. Hardeep Rivera PLT 188 103/ul Normal 150-450 [facility] Comment on above: Performed By: #### RANDALL OLSON #### [facility] [address] [address] [address] Hardeep Rivera RBC 4.77 106/ul Normal 4.20-5.40 [facility] Comment on above: Performed By: #### HARI OLSONRO #### [facility] [address] [address] [address] Hardeep Rivera WBC 7.8 103/ul Normal 4.0-11.0 [facility] Comment on above: Performed By: #### HARI OLSONRO #### [facility] [address] [place] [address] Dr. Hardeep Rivera PROF CHEM 8 (BAS METB)on Anion gap [Moles/Vol] 11.9 mmol/L Normal [facility] Comment on above: Performed By: #### RANDALL OLSON #### [facility] [address] [place] [address] Dr. Hardeep Rivera Calcium [Mass/Vol] 8.7 mg/dL Normal 8.5-10.1 [facility] Comment on above: Performed By: #### RANDALL OLSON #### [facility] [address] [place] [address] Dr. Hardeep Rivera Chloride [Moles/Vol] 99 mmol/L Normal 98-107 [facility] Comment on above: Performed By: #### HARI OLSONRO #### [facility] [address] [place] [address] Dr. Hardeep Rivera CO2 [Moles/Vol] 27.1 mmol/L Normal 21.0-32.0 [facility] Comment on above: Performed By: #### HARI OLSONRO #### [facility] [address] [place] [address] Dr. Hardeep Rivera Creatinine [Mass/Vol] 1.62 mg/dL Critically high 0.55-1.02 [facility] Comment on above: Performed By: #### HARI OLSONRO #### [facility] [address] [address] [address] Hardeep Rivera EGFR-AF KOSOVAN 37 mL/min/1.73m2 Critically low >=60 [facility] Comment on above: Performed By: #### Deedee PINON UMICRO #### [facility] [address] [address] [address] Hardeep Rivera EGFR-NON AF KOSOVAN 31 mL/min/1.73m2 Critically low >=60 [facility] Comment on above: Performed By: #### E KATHRIN, UMICRO #### [facility] [address] [address] [address] Hardeep Rivera Glucose [Mass/Vol] 73 mg/dL Critically low 74-106 [facility] Comment on above: Performed By: #### Deedee PINON, UMICRO #### [facility] [address] [place] [address] Dr. Hardeep Rivera Potassium [Moles/Vol] 4.0 mmol/L Normal 3.5-5.1 [facility] Comment on above: Performed By: #### Deedee PINON UMICRO #### [facility] [address] [place] [address] Dr. Hardeep Rivera Sodium [Moles/Vol] 134 mmol/L Critically low 136-145 [facility] Comment on above: Performed By: #### Deedee PINON, UMICRO #### [facility] [address] [place] [address] Dr. Hardeep Rivera Urea nitrogen [Mass/Vol] 33.0 mg/dL Critically high 7.0-18.0 [facility] Comment on above: Performed By: #### Deedee PINON UMICRO #### [facility] [address] [place] [address] Dr. Hardeep Rivera Urea nitrogen/Creatinine [Mass ratio] 20.4 mg/mg Normal [facility] Comment on above: Performed By: #### Deedee PINON, UMICRO #### [facility] [address] [place] [address] Dr. Hardeep Rivera TACROLIMUS/FK-506 BLon 05-07 Tacrolimus [...] situation. Test performed by chemiluminescent immunoassay using IKO System. Performed By: #### F K506 ####[facility] LABCLIA [id number] [address] OF [facility] 05-03-2022 ODETTEN Telephone (JULIAN [facility] ISACC) -- SYLVIA HERRERA ([id number]) 1945 F Date Time Provider Department 05/03/22 SHO CROWLEY [facility] During your visit today, we recorded the following information about you: Sho Crowley APRN.POULTRY VETERINARIAN 05/03/2022 2:58 PM Signed received phone call from [facility] group requesting patient's Tacrolimus levels from 04/24. Faxed results to [phone]. Allergies As of Date: 05/03/2022 Noted Allergy [...] mg by mouth three times daily. - gbggqp-zvpiontz-nqptcyz (CREON) 24,000-76,000 -120,000 unit cpDR Take 3 [...] Status:Closed by SHO CROWLEY on 05/03/22 Normal [facility] BOX TEST SENT OUTon 04-24-20 22 SENT TO REF LAB 04/24/2022 Normal [facility] Comment on above: Performed By: #### RANDALL OLSON #### [facility] [address] [place] [address] Dr. [facility] ODETTEN Telephone (CARD CHF ISACC) -- SYLVIA HERRERA ([id number]) 1945 F Date Time Provider Department 04/24/22 LOIDA MATHIAS [facility]F [facility] During your visit today, we recorded the following information about you: Linden Weems 04/24/2022 1:31 PM Signed Patient left message that she had labs drawn today. Linden Weems Administrative Internal Corrosion Specialist Post Heart Transplant J3-4 Loida Mathias APRN.ODETTE 04/26/2022 11:25 AM Signed Received FK level 4.5, drawn 04/24 My chart message sent to patient. Advised to remain on current dose and keep our office updated re: her plans for post transplant follow up. Loida Mathias APRN.POULTRY VETERINARIAN April 26, 2022 11:24 AM Component Latest [...] mg by mouth three times daily. - urbcwe-kdmuklcp-pbykhff (CREON) 24,000-76,000 -120,000 unit cpDR Take 3 [...] Test performed by chemiluminescent immunoassay using Sutton Tray Line Worker. Performed By: #### F K506 ####[facility] LABCLIA [id number] [place] [address] [place] FK506 (TACROLIMUS) WHOLE BLO ODon 04-11-2022 Tacrolimus (FK506), Blood 7.3 ng/mL Normal 2.0-20.0 [facility] Comment on above: Result Comment: Trou gh (immediately following transplant) 15.0 . Trough (steady state, 2 weeks or more after transplant): 3.0 - 8.0 . Performed by LC-MS/MS technology. Performed By: #### HARI OLSONRO #### [facility] [address] [place] [address] Dr. Hardeep Rivera BOX TEST SENT OUTon 04-09-20 22 SENT TO REF LAB 04/09/2022 Normal [facility] Comment on above: Performed By: #### HARI OLSONRO #### [facility] [address] [place] [address] Dr. Hardeep Rivera CBC AUTO DIFFon 04-09-2022 BASO # 0.0 103/ul Normal 0.0-0.1 [facility] Comment on above: Performed By: #### HARI OLSONRO #### [facility] [address] [place] [address] Dr. Hardeep Rivera Basophils/100 WBC (Bld) 0.1 % Critically low 0.2-2.0 [facility] Comment on above: Performed By: #### HARI OLSONRO #### [facility] [address] [place] [address] Dr. Hardeep Rivera EO # 0.1 103/ul Normal 0.0-0.7 [facility] Comment on above: Performed By: #### RANDALL OLSON #### [facility] [address] [place] [address] Dr. Hardeep Rivera Eosinophils/100 WBC (Bld) 1.2 % Normal 0.9-7.0 [facility] Comment on above: Performed By: #### HARI OLSONRO #### [facility] [address] [place] [address] Dr. Hardeep Rivera Erythrocyte distribution width (RBC) [Ratio] 12.6 % Normal 11.0-15.0 [facility] Comment on above: Performed By: #### HARI OLSONRO #### [facility] [address] [place] [address] Dr. Hardeep Rivera Hematocrit (Bld) [Volume fraction] 44.1 % Normal 36.0-48.0 [facility] Comment on above: Performed By: #### E RUR, UMICRO #### [facility] [address] [place] [address] Dr. Hardeep Rivera Hemoglobin (Bld) [Mass/Vol] 14.1 g/dL Normal 12.0-16.0 [facility] Comment on above: Performed By: #### E RUR, UMICRO #### [facility] [address] [place] [address] Dr. Hardeep Rivera IG # 0.02 10e3/ul Normal 0.00-0.03 [facility] Comment on above: Performed By: #### E RUTrish, UMICRO #### [facility] [address] [place] [address] Dr. Hardeep Rivera IG % 0.3 % Normal 0.0-0.5 [facility] Comment on above: Performed By: #### E KATHRIN UMICRO #### [facility] [address] [place] [address] Dr. Hardeep Rivera LYMPH # 0.7 103/ul Critically low 1.2-3.8 [facility] Comment on above: Performed By: #### Deedee PINON UMICRO #### [facility] [address] [place] [address] Dr. Hardeep Rivera Lymphocytes/100 WBC (Bld) 10.8 % Critically low 20.5-60.0 [facility] Comment on above: Performed By: #### Deedee PINON UMICRO #### [facility] [address] [place] [address] Dr. Hardeep Rivera MANUAL DIFF REQ NO Normal [facility] Comment on above: Performed By: #### E RUTrish, UMICRO #### [facility] [address] [place] [address] Dr. Hardeep Rivera MCH (RBC) [Entitic mass] 29.3 pg Normal 26.7-34.0 [facility] Comment on above: Performed By: #### E RUTrish, UMICRO #### [facility] [address] [place] [address] Dr. Hardeep Rivera MCHC (RBC) [Mass/Vol] 32.0 g/dL Normal 29.9-35.2 [facility] Comment on above: Performed By: #### RANDALL OLSON #### [facility] [address] [place] [address] Dr. Hardeep Rivera MCV (RBC) [Entitic vol] 91.7 fL Normal 81.0-99.0 [facility] Comment on above: Performed By: #### HARI OLSONRO #### [facility] [address] [place] [address] Dr. Hardeep Rivera MONO # 0.7 103/ul Normal 0.3-0.8 [facility] Comment on above: Performed By: #### HARI OLSONRO #### [facility] [address] [place] [address] Dr. Hardeep Rivera Monocytes/100 WBC (Bld) 10.8 % Normal 1.7-12.0 [facility] Comment on above: Performed By: #### RANDALL OLSON #### [facility] [address] [place] [address] Dr. Hardeep Rivera NEUT # 5.2 103/ul Normal 1.4-6.5 [facility] Comment on above: Performed By: #### RANDALL OLSON #### [facility] [address] [place] [address] Dr. Hardeep Rivera Neutrophils/100 WBC (Bld) 76.8 % Critically high 43.0-75.0 [facility] Comment on above: Performed By: #### HARI OLSONRO #### [facility] [address] [place] [address] Dr. Hardeep Rivera Platelet mean volume (Bld) [Entitic vol] 9.8 fL Normal 9.5-13.5 [facility] Comment on above: Performed By: #### HARI OLSONRO #### [facility] [address] [place] [address] Dr. Hardeep Rivera PLT 200 103/ul Normal 150-450 [facility] Comment on above: Performed By: #### HARI OLSONRO #### [facility] [address] [place] [address] Dr. Hardeep Rivera RBC 4.81 106/ul Normal 4.20-5.40 [facility] Comment on above: Performed By: #### Deedee PINON UMICRO #### [facility] [address] [place] [address] Dr. Hardeep Rivera WBC 6.7 103/ul Normal 4.0-11.0 [facility] Comment on above: Performed By: #### Deedee PINON UMICRO #### [facility] [address] [place] [address] Dr. Hardeep Rivera PROF CHEM 8 (BAS METB)on Anion gap [Moles/Vol] 9.1 mmol/L Normal [facility] Comment on above: Performed By: #### Deedee PINON UMICRO #### [facility] [address] [place] [address] Dr. Hardeep Rivera Calcium [Mass/Vol] 8.3 mg/dL Critically low 8.5-10.1 [facility] Comment on above: Performed By: #### Deedee PINON UMICRO #### [facility] [address] [place] [address] Dr. Hardeep Rivera Chloride [Moles/Vol] 100 mmol/L Normal 98-107 [facility] Comment on above: Performed By: #### Deedee PINON UMICRO #### [facility] [address] [place] [address] Dr. Hardeep Rivera CO2 [Moles/Vol] 28.1 mmol/L Normal 21.0-32.0 [facility] Comment on above: Performed By: #### Deedee PINON UMICRO #### [facility] [address] [place] [address] Dr. Hardeep Rivera Creatinine [Mass/Vol] 1.54 mg/dL Critically high 0.55-1.02 [facility] Comment on above: Performed By: #### Deedee PINON UMICRO #### [facility] [address] [place] [address] Dr. Hardeep Rivera EGFR-AF KOSOVAN 40 mL/min/1.73m2 Critically low >=60 [facility] Comment on above: Performed By: #### RANDALL OLSON #### [facility] [address] [place] [address] Dr. Hardeep Rivera EGFR-NON AF KOSOVAN 33 mL/min/1.73m2 Critically low >=60 [facility] Comment on above: Performed By: #### HARI OLSONRO #### [facility] [address] [place] [address] Dr. Hardeep Rivera Glucose [Mass/Vol] 122 mg/dL Critically high 74-106 [facility] Comment on above: Performed By: #### HARI OLSONRO #### [facility] [address] [place] [address] Dr. Hardeep Rivera Potassium [Moles/Vol] 4.2 mmol/L Normal 3.5-5.1 [facility] Comment on above: Performed By: #### HARI OLSONRO #### [facility] [address] [place] [address] Dr. Hardeep Rivera Sodium [Moles/Vol] 133 mmol/L Critically low 136-145 [facility] Comment on above: Performed By: #### HARI OLSONRO #### [facility] [address] [place] [address] Dr. Hardeep Rivera Urea nitrogen [Mass/Vol] 28.0 mg/dL Critically high 7.0-18.0 [facility] Comment on above: Performed By: #### HARI OLSONRO #### [facility] [address] [place] [address] Dr. Hardeep Rivera Urea nitrogen/Creatinine [Mass ratio] 18.2 mg/mg Normal [facility] Comment on above: Performed By: #### HARI OLSONRO #### [facility] [address] [place] [address] Dr. Hardeep Rivera TACROLIMUS/FK-506 BLon 04-09 Tacrolimus (Bld) [Mass/Vol] 9.9 ng/mL Normal 5.0-20.0 [facility] Comment on above: Order Comment: Víctor [...] Test performed by chemiluminescent immunoassay using Sutton Tray Line Worker. Performed By: #### F K506 ####[facility] LABCLIA [id number] [address] Eduardo 10-10-2021 NIK Telephone (JULIAN [facility]) -- SYLVIA HERRERA ([id number]) 1945 F Date Time Provider Department 10/10/21 LOIDA MATHIAS [facility] During your visit today, we recorded the following information about you: Linden Weems 10/10/2021 11:57 AM Signed Patient had labs drawn today Linden Weems Administrative Internal Corrosion Specialist Linden Weems 10/11/2021 10:57 AM Signed Labs uploaded to scanned docs. Linden Weems Administrative Internal Corrosion Specialist Loida Mathias APRN.CNP 10/12/2021 12:28 PM Signed Received outside labs drawn 10/10 -- FK 10.1 Cr 1.4 BUN 24 K 4.8 FBS 105 WBC 8300 Hgb 13 Hct 42 Plts 209 Called and left message for patient. Advised if this was a good 12 hr trough, to reduce Tacrolimus to 0.5 mg BID. Repeat labs in 2 weeks. Loida Mathias APRN.POULTRY VETERINARIAN October 12, 2021 12:27 PM Loida Mathias [...] by transplant. No Dr Caldera: Rfl: TACROLIMUS/FK-506 [[id number]] Order #: [id number] FUTURE Prescriptions as of 10/12/2021 - tacrolimus [...] mg by mouth three times daily. - tvgbdc-xrtrzukr-scooool (CREON) 24,000-76,000 -120,000 unit cpDR Take 3 [...] [facility] Tacrolimus / [id number] 021 Tacrolimus / FK506 10.1 ng/mL Normal 5.0-20.0 [facility] Comment on above: Result Comment: Thes e [...] Test performed by chemiluminescent immunoassay using Sutton Tray Line Worker. Performed By: #### F K506 ####[facility] [id number] [place], [place] [id number] Eduardo 09-13-2021 CNPN Telephone (CARD [facility]) -- SYLVIA HERRERA ([id number]) 1945 F Date Time Provider Department 09/13/21 ARELIS NEWSOME CARD CHF ISACC During your visit today, we recorded the following information about you: Linden Weems 09/13/2021 2:52 PM Signed S/w pt, due to transportation and financial constraints she is unable to come to [place] for appointments. Patient is working with her continuous pillowcase cutter to establish care with a local signaler (had previously been followed by one in [place]).Dr Rice has agreed and plan going forward will be to do a phone visit with pt on 10/03 and she will follow up in the interim with her local [employer] Architect. Sending pt mailers and lab order, she will get those done as soon as she can. Linden Weems Administrative Internal Corrosion Specialist Allergies As of Date: 09/13/2021 Noted Allergy [...] mg by mouth three times daily. - zuvlbs-nlqvpfam-xujvdju (CREON) 24,000-76,000 -120,000 unit cpDR Take 3 [...] Encounter Status:Closed by LINDEN WEEMS on 09/13/21 [facility] OBSOLETEon 09-12-2021 OBSOLETE Refill (CARD [facility] ) -- SYLVIA HERRERA ([id number]) 1945 F Date Time Provider Department 09/12/21 SANDRITA GUERRERO CARD [facility] During your visit today, we [...] mg by mouth three times daily. - qnbmyw-asetnrod-fdomjzl (CREON) 24,000-76,000 -120,000 unit cpDR Take 3 [...] 09/02/2019 Diabetes mellitus, type II ([facility]) [E11.9] 04/29/2014 DREW (acute kidney injury) ([facility]) [N17.9] 05/06/2014 05/19/2014 Orth[facility]asis [I95.1] 05/06/2014 05/19/2014 [...] 04-08-2023 06:45-0400 Diastolic blood pressure 76 mm[Hg] [facility] 04-08-2023 06:45-0400 Heart rate 59 /min [facility] 04-08-2023 06:45-0400 Hourly Rounding [facility] 04-08-2023 06:45-0400 Mean blood pressure 106 mm[Hg] [facility] 04-08-2023 06:45-0400 Respiratory rate 18 /min [facility] 04-08-2023 06:45-0400 SaO2% (BldA) [Mass fraction] 96 % Richard Roby [facility] 04-08-2023 06:45-0400 Systolic blood pressure 167 mm[Hg] Richard Roby [facility] 04-08-2023 05:30-0400 Diastolic blood pressure 88 mm[Hg] Richard Roby [facility] 04-08-2023 05:30-0400 Heart rate 52 /min Richard Roby [facility] 04-08-2023 05:30-0400 Hourly Rounding Richard Roby [facility] 04-08-2023 05:30-0400 Mean blood pressure 114 mm[Hg] Richard Roby [facility] 04-08-2023 05:30-0400 Respiratory rate 18 /min Richard Roby [facility] 04-08-2023 05:30-0400 SaO2% (BldA) [Mass fraction] 95 % Richard Roby [facility] 04-08-2023 05:30-0400 Systolic blood pressure 167 mm[Hg] Richard Roby [facility] 04-08-2023 04:39-0400 Diastolic blood pressure 90 mm[Hg] Richard Roby [facility] 04-08-2023 04:39-0400 Heart rate 56 /min Richard Roby [facility] 04-08-2023 04:39-0400 Hourly Rounding Richard Roby [facility] 04-08-2023 04:39-0400 Mean blood pressure 112 mm[Hg] Richard Roby [facility] 04-08-2023 04:39-0400 Respiratory rate 17 /min Richard Roby [facility] 04-08-2023 04:39-0400 SaO2% (BldA) [Mass fraction] 94 % Richard Roby [facility] 04-08-2023 04:39-0400 Systolic blood pressure 155 mm[Hg] Richard Roby [facility] 04-07-2023 21:48-0400 Respiratory rate 18 /min Richard Orby [facility] 04-07-2023 21:19-0400 Body temperature 98.06 [degF] Richard Ca [facility] 04-07-2023 21:19-0400 Heart rate 65 /min Richard Roby [facility] 04-07-2023 21:19-0400 Respiratory rate 19 /min [facility] Roby [facility] Encounters Encounter Date Encounter Type Care Provider Facility Start: 07-01-2024 End: 07-01-2024 ambulatory [facility] Start: 06-18-2024 End: 06-18-2024 ambulatory NON STAFF [facility] Work Phone: Start: 06-18-2024 End: 06-18-2024 Departed Referred [facility] Start: 02-03-2024 End: 02-03-2024 ambulatory [facility] Start: 11-12-2023 End: 11-12-2023 ambulatory [facility] Start: 08-07-2023 End: 08-07-2023 ambulatory [facility] Start: 04-07-2023 End: 04-08-2023 Emergency department patient visit Richard Ca Facility:[facility] Start: 04-07-2023 End: 04-08-2023 Emergency department patient visit Richard Ca [facility] Start: 03-05-2023 End: 03-05-2023 ambulatory [...] ROGERS Facility:[facility] Start: 09-08-2022 Refill Sandrita Guerrero APRN.POULTRY VETERINARIAN Work Phone: Cardiology Comment on above: Refill Request Start: 08-04-2022 End: 08-04-2022 ambulatory NANCY REYES . Facility:[facility] Start: 08-02-2022 Telephone encounter Loida Mathias APRN.CNP Work Phone: Cardiology Comment on above: Heart Transplant Fol low Up (Labs/) Start: 08-02-2022 End: 08-03-[address] TAO ROONEY . Facility:[facility] Start: 07-27-[address] TAO ROONEY . Facili ty:[facility] Start: 07-17-2022 End: 07-18-2022 ambulatory [facility] Facility:[facility] Start: 07-16-2022 End: 07-17-2022 ambulatory [facility] Facility:[facility] Start: 07-16-2022 End: 07-16-2022 Patient encounter procedure [facility] Start: 07-12-2022 End: 07-13-2022 ambulatory [facility] Facility:[facility] Start: 07-05-2022 Telephone encounter Sho Crowley APRN.POULTRY VETERINARIAN Work Phone: Cardiology Comment on above: Heart Transplant Fol low Up; Lab Meeting Start: 07-03-2022 Telephone encounter Soy Mccann RN [facility] rdiology Comment on above: Heart Transplant Fol low Up (labs) Start: 07-03-2022 End: 07-04-[address] TAO ROONEY . Facility:[facility] Start: 05-28-2022 End: 05-29-[address] TAO ROONEY . Facility:[facility]1 Start: 05-23-2022 ambulatory [facility] Facility:Servando beckwithLucien Start: 05-08-2022 Telephone encounter Loida Mathias APRN.POULTRY VETERINARIAN Work Phone: Cardiology Comment on above: Heart Transplant Fol low Up (labs) Start: 05-07-2022 End: 05-08-[address] TAO ROONEY . Facility: Start: 04-24-2022 Telephone encounter Loida Mathias APRN.POULTRY VETERINARIAN Work Phone: Cardiology Comment on above: Heart Transplant Fol low Up Start: 04-24-2022 End: 04-25-[address] TAO ROONEY . Facility:[facility] Start: 04-20-[address] TAO ROONEY . Facili ty:H1 Start: 04-11-2022 ambulatory Loida fontaine APRN.POULTRY VETERINARIAN Work Phone: [facility] Start: 04-11-2022 Follow-up encounter Loida Mathias APRN.POULTRY VETERINARIAN Work Phone: Cardiology Comment on above: Heart Transplant Fol low Up (Labs) Start: 04-09-2022 End: 04-10-[address] TAO ROONEY . Facility: Start: 04-06-2022 Orders Only Loida fontaine APRN.POULTRY VETERINARIAN Work Phone: Cardiology Comment on above: Heart replaced by tr ansplant (HCC) (Primary Dx) Start: 04-04-2022 Refill Loida fontaine APRN.POULTRY VETERINARIAN Work Phone: Cardiology Comment on above: Rx Refills Start: 10-03-2021 End: 10-03-2021 ambulatory NICOLETTE RICE [facility] Procedures Date Procedure Procedure Detail Performing Clinician Start: 08-10-2013 H/O: heart recipient Heart transplan arianna Loida Mathias APRN.POULTRY VETERINARIAN Work Phone: H/O: heart recipient Heart transplanted ( HCC) Loida Iammarino PLANE RUNNER.POULTRY VETERINARIAN Work Phone: H/O: heart recipient Heart repla nitish by transplant ([facility]) Loida Iammarino PLANE RUNNER.POULTRY VETERINARIAN Work Phone: H/O: heart recipient Heart transplanted ( HCC) Loida Iammarino PLANE RUNNER.POULTRY VETERINARIAN Work Phone: H/O: heart recipient Heart transplanted ( HCC) Loida Iammarino PLANE RUNNER.POULTRY VETERINARIAN Work Phone: H/O: heart recipient Heart transplanted ( HCC) Sho Crowley APRN.POULTRY VETERINARIAN Work Phone: H/O: heart recipient Hx of heart transplant( Confirmed ) Eddie JAMA Plan of Treatment Date Care Activity Detail Author Start: 08-02-2022 Influenza vaccination INFLUENZA (#1) [facility] Start: 07-19-2022 End: 09-18-2022 Tacrolimus [Mass/volume] in Blood TACROLIMUS/FK-506 BL Lab Routine Heart transplanted (HCC) Expected: 07/19/2022 (Approximate), Expires: 09/18/2022 [facility] Work Phone: Comment on above: Expected: 07/19/2022 (Approximate), Expires: 09/18/2022 Start: 05-21-2022 End: 07-21-2022 TACROLIMUS/FK-506 BL TACROLIMUS/FK-506 BL Lab Routine Heart transplanted (HCC) Expected: 05/21/2022, Expires: 07/21/2022 [facility] Work Phone: Comment on above: Expected: 05/21/2022 , Expires: 07/21/2022 Start: 04-23-2022 End: 06-23-2022 TACROLIMUS/FK-506 BL TACROLIMUS/FK-506 BL Lab Routine Heart transplanted (HCC) Expected: 04/23/2022, Expires: 06/23/2022 [facility] Work Phone: Comment on above: Expected: 04/23/2022 , Expires: 06/23/2022 Start: 04-09-2022 End: 06-09-2022 CBC W Auto Differential panel - Blood CBC + DIFF Lab Routine Heart replaced by transplant (HCC) Expected: 04/09/2022, Expires: 06/09/2022 [facility] Work Phone: Comment on above: Expected: 04/09/2022 , Expires: 06/09/2022 Start: 04-09-2022 End: 06-09-2022 Comprehensive metabolic 2000 panel - Serum or Plasma COMP METABOLIC PANEL Lab Routine Heart replaced by transplant ([facility]) Expected: 04/09/2022, Expires: 06/09/2022 [facility] Work Phone: Comment on above: Expected: 04/09/2022 , Expires: 06/09/2022 Start: 04-09-2022 End: 04-06-2023 HEART/LUNG REC POST TX DSA HEART/LUNG REC POST TX DSA ALLOGEN Routine Heart replaced by transplant ([facility]) Expected: 04/09/2022, Expires: 04/06/2023 [facility] Work Phone: Comment on above: Expected: 04/09/2022 , Expires: 04/06/2023 Start: 04-09-2022 End: 06-09-2022 LIPID PANEL BASIC LIPID PANEL BASIC Lab Routine Heart replaced by transplant (HCC) Expected: 04/09/2022, Expires: 06/09/2022 [facility] Work Phone: Comment on above: Expected: 04/09/2022 , Expires: 06/09/2022 Start: 04-09-2022 End: 06-09-2022 Magnesium [Mass/volume] in Serum or Plasma MAGNESIUM BLD Lab Routine Heart replaced by transplant ([facility]) Expected: 04/09/2022, Expires: 06/09/2022 [facility] Work Phone: Comment on above: Expected: 04/09/2022 , Expires: 06/09/2022 Start: 04-09-2022 End: 06-09-2022 TACROLIMUS/FK-506 BL TACROLIMUS/FK-506 BL Lab Routine Heart replaced by transplant ([facility]) Expected: 04/09/2022, Expires: 06/09/2022 [facility] Work Phone: Comment on above: Expected: 04/09/2022 , Expires: 06/09/2022 Start: 04-09-2022 End: 06-09-2022 URINALYSIS, DIPSTICK ONLY URINALYSIS, DIPSTICK ONLY Lab Routine Heart replaced by transplant ([facility]) Expected: 04/09/2022, Expires: 06/09/2022 [facility] Work Phone: Comment on above: Expected: 04/09/2022 , Expires: 06/09/2022 Start: 12-02-2021 ADVANCE DIRECTIVE DISCUSSION ADVANCE DIRECTIVE DISCUSSION [facility] Start: 09-26-2021 COVID-19 VACCINE (3 - Pfizer risk 4-dose series) COVID-19 VACCINE (3 - Pfizer risk 4-dose series) [facility] Start: 09-26-2021 COVID-19 VACCINE (3 - Pfizer risk series) COVID-19 VACCINE (3 - Pfizer risk series) [facility] Start: 03-04-2020 Hepatitis B surface antibody level LDL CHOLESTEROL [facility] Start: 06-14-2015 Hemoglobin A1c/Hemoglobin.total in Blood HBA1C [facility] Start: 11-01-2013 PNEUMOCOCCAL: 65+ (3 - PCV) PNEUMOCOCCAL: 65+ (3 - PCV) [facility] Start: 2009 ADULT PREVNAR ADULT PREVNAR [facility] Start: 1994 SHINGRIX VACCINE (1 of 2) SHINGRIX VACCINE (1 of 2) [facility] Start: 1963 SHINGRIX VACCINE (1 of 2) SHINGRIX VACCINE (1 of 2) [facility] Start: 1963 Urine microalbumin profile DTAP,TDAP,TD (1 - Tdap) [facility] Start: 1962 ANNUAL PCP TEAM SOLID PLASTERER BRENNAN DISEASE VISIT ANNUAL PCP TEAM CHRONIC DISEASE VISIT [facility] Start: 1962 BP CONTROLLED (<130/80) BP CONTROLLE D (<130/80) [facility] Start: 1954 3 comp foot exam completed DIABETIC FOOT EXAM [facility] Start: 1954 Hepatitis B screening URINE ALBUMIN:CREATININE RATIO [facility] Start: 1954 Hepatitis C antibody , confirmatory test DILATED RETINAL EXAM [facility] Start: 1950 PNEUMOCOCCAL: 65+ (1 - PCV) PNEUMOCOCCAL: 65+ (1 - PCV) [facility] [place] [facility] Immunizations Immunization Date Immunization Notes Care Provider Fa cility 06-05-2022 SARS-CoV-2 mRNA (vdnvloxbtsa-ewrf-iwjeu se) vaccine Morgan [employer] [facility] 08-29-2021 SARS-CoV-2 (COVID-19 ) mRNA BNT-162b2 vax Morgan SALAM [facility] 08-02-2021 SARS-CoV-2 (COVID-19 ) mRNA BNT-162b2 vax Morgan SALAM [facility] 07-05-2021 influenza virus vaccine, unspecified formulation Morgan SALAM [facility] 09-29-2020 influenza, unspecifi ed formulation Morgan SALAM [facility] 07-24-2020 influenza virus vaccine, unspecified formulation Morgan [employer] [facility] 09-02-2017 influenza virus vaccine, unspecified formulation Morgan SALAM [facility] 08-07-2017 pneumococcal conjuga te vaccine, 13 valent Morgan SALAM [facility] 08-14-2016 influenza virus vaccine, unspecified formulation Morgan SALAM [facility] 09-29-2015 pneumococcal conjuga te vaccine, 13 valent Morgan SALAM [facility] 08-04-2015 influenza virus vaccine, unspecified formulation Morgan SALAM [facility] 09-15-2014 influenza virus vaccine, whole virus Loida Iammarino PLANE RUNNER.[facility] Work Phone: [facility] 09-15-2014 influenza, whole Morgan SALAM [facility] 11-01-2012 pneumococcal polysaccharide vaccine, 23 valent Loida Iammarino PLANE RUNNER.[facility] Work Phone: [facility] 12-28-2009 novel [id number], all formulations Loida Iammarino PLANE RUNNER.[facility] Work Phone: [facility] Work Phone: 08-19-2009 influenza virus vaccine, unspecified formulation Loida Iammarino PLANE RUNNER.[facility] Work Phone: [facility] 09-01-2006 influenza virus vaccine, unspecified formulation Loida Iammarino PLANE RUNNER.[facility] Work Phone: [facility] Work Phone: 09-01-2006 pneumococcal polysaccharide vaccine, 23 valent Loida Iammarino PLANE RUNNER.[facility] Work Phone: [facility] Work Phone: NEGATED: Highlighted row has not occurred!07-12-2022 influenza virus vaccine, unspecified formulation Morgan SALAM [facility] Payers Date Payer Category Payer Self-pay 2022 Medicare UHC MEDICARE UHC DUAL COMPLETE HMO SNP [id number] 2022-Present [phone] [address] [place] [address] Medicare [id number] 2022 Medicare UHC MEDICARE UHC DUAL COMPLETE HMO SNP [id number] 2022-Present [phone] [address] [place] [address] Medicare [id number] 2020 Unknown [id number] 1959 Medicaid [id number] 1959 Medicare [id number] 1959 Self-pay [id number] 1959 Unknown [id number] 1944 Unknown [id number] 2.16.840.1.455956.3.579.2.593 1944 Unknown [id number] 2.16.840.1.804002.3.579.2.593 1944 Unknown [id number] 2.16.840.1.181591.3.579.2.593 1944 Unknown [id number] 2.16.840.1.018933.3.579.2.593 1944 Unknown [id number] 2.16.840.1.453186.3.579.2.593 1944 Unknown [id number] 2.16.840.1.425116.3.579.2.593 1944 Unknown [id number] 2.16.840.1.757592.3.579.2.593 1944 Unknown [id number] 2.16.840.1.698574.3.579.2.593 1944 Unknown [id number] 2.16.840.1.529189.3.579.2.593 1944 Unknown [id number] 2.16.840.1.328981.3.579.2.593 1944 Unknown [id number] 2.16.840.1.968610.3.579.2.593 1944 Unknown [id number] 2.16.840.1.565744.3.579.2.593 1944 Unknown [id number] 2.16.840.1.262389.3.579.2.593 1944 Unknown [id number] 2.16.840.1.521371.3.579.2.593 1944 Unknown [id number] 2.16.840.1.861736.3.579.2.593 1944 Unknown [id number] 2.16.840.1.649144.3.579.2.593 1944 Unknown [id number] 2.16.840.1.757534.3.579.2.593 1944 Unknown [id number] 2.16.840.1.864608.3.579.2.593 1944 Unknown [id number] 2.16.840.1.045346.3.579.2.727 1944 Unknown [id number] 2.16.840.1.224995.3.579.2.727 1944 Unknown [id number] 2.16.840.1.360698.3.579.2.727 1944 Unknown [id number] 2.16.840.1.854685.3.579.2.727 1944 Unknown [id number] 2.16.840.1.054087.3.579.2.727 Unknown [id number] 2.16.840.1.396133.3.579.2.593 Social History Date Type Detail Facility Start: 05-13-2019 Tobacco smoking stat us NHIS Ex-smoker [facility] Work Phone: History of tobacco use Cigarette Smoker [facility] Work Phone: Start: 09-07-2019 Alcohol intake 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) [facility] Start: 1945 Sex Assigned At Not on file [facility] Start: 07-12-2022 Never smoked t obacco (finding) [facility] Never [facility] Female [facility] History of tobacco use Current smoker [facility] Start: 05-13-2019 Cigarettes smoked current (pack per day) - Reported 0.3 [facility] Start: 05-13-2019 Tobacco use and exposure Smokeless tobacco non-user [facility] Start: 1945 Sex Assigned At Female F [facility] Functional Status Date Assessment Result Facility 04-07-2023 Functional Status N/A [facility] Clinical Notes 11-14-2017 to 07-01-2024 Note Date & Type Note Facility 07-01-2024 Note [facility] Subjective Sylvia Herrear is a 78 y.o. year old female patient being seen for follow up [facility] for syncope. Says she's been having [...] She is followed by the [facility] cardiology service. She has had no [...] There is no (more content not included)... [facility] 02-03-2024 Note [place] [facility] Subjective Sylvia Herrera is a 78 y.o. year old female patient being seen for follow up [facility]. She was seen as inpatient consult [...] She is followed by the [facility] cardiology service. She has had no [...] the prior echocardiographi (more content not included)... [facility] 11-12-2023 Note [place] [facility] Subjective Sylvia Herrera is a 77 [...] She is followed by the [facility] cardiology service. She has had no [...] Stress Testing (1 (more content not included)... [facility] 10-28-2023 Note [facility] 08-07-2023 Note [place] [facility] Subjective Sylvia Herrera is a 77 [...] She is followed by the [facility] cardiology service. She has had no [...] scan. [address] (more content not included)... [facility] 04-08-2023 Hospital Discharge instructions Patient Education [...] ?Adrenal gland problems. ?Metabolic conditions, such as [place]'s disease or syndrome of inappropriate antidiuresis (SIAD). [...] improvement. Follow these instructions at home: Take afvs-wig-vuzogjl and prescription medicines only as told by [...] provider. Document Revised: 05/29/2022 Document Reviewed: 05/29/2022 [employer] Patient Education 2022 Pager. 04/08/2023 08:56:02 Nonspecific Chest Pain, Adult Nonspecific [...] Follow these instructions at home: Medicines Take mtuc-jse-jowqdax and prescription medicines only as told by [...] provider. Document Revised: 02/01/2022 Document Reviewed: 02/01/2022 [employer] Patient Education 2022 Graphicly Follow Up Care 04/07/2023 21:19:10 With:SCOT ROGERS Address: [facility] [place] [address] [phone] Business (1) When:Within 3 Day(s) [facility] 04-07-2023 Evaluation + Plan note [...] Troponin 9 Hr. XR Chest Single View [facility]09-01-2022 Miscellaneous Notes* Telephone Encounter - Linden Weems - 08/02/2022 1:41 PM EDT Patient had labs drawn 08/02/22, uploaded to scanned docs. [facility] Miscellaneous Notes* Telephone Encounter - Sho [...] another team. Sho Crowley APRN, CNP Pager: [phone] July 05, 2022 10:42 AM Post Heart Transplant Nurse Practitioner [facility] Miscellaneous Notes* Telephone Encounter - Linden Weems - 07/03/2022 12:59 PM EDT Patient had labs drawn 07/03/22, uploaded to scanned docs. [facility] Miscellaneous Notes* Addendum Note - Loida [...] uploaded to scanned docs. Linden Weems Administrative Internal Corrosion Specialist [facility] Miscellaneous Notes* Telephone Encounter - Linden Weems - 04/24/2022 1:31 PM EDT Patient left message that she had labs drawn today. Linden Weems Administrative Internal Corrosion Specialist Post Heart Transplant J3-4 documented in [facility] encounterCore[facility]05-11-2022 NoteHNO ID: [id number] Author: Loida Mathias APRN.CNP Service: ? Author [...] reports she can no longer travel to [place]. She does not have a ride, she has no family or friends to lean on. She has made an appt with a local [employer] Architect. She will ask him if there are any transplant doctors or centers near her and potentially need to transfer her care. She will keep us updated. Loida Mathias APRN.CNP April 12, 2022 2:25 [facility]05-11-2022 History of Present illness Narrative* Loida Mathias [...] reports she can no longer travel to [place]. Shedoes not have a ride, she has no family or friends to lean on. She has made an appt with a local [employer] Architect. She will ask him if there are any transplant doctors or centers near her and potentiallyneed to transfer her care. She will keep us updated. Loida Mathias APRN.CNP April 12, 2022 2:25 PM documented in [facility] encounterCore[facility]11-08-2021 NoteHNO ID: [id number] Author: Loida Mathias APRN.CNP Service: ? Author [...] Loida Mathias APRN.CNP October 09, 2021 4:10 [facility]11-02-2021 NoteHNO ID: [id number] Author: Nicolette Rice MD Service: ? Author Type: Physician Type: Progress Notes Filed: 10/03/2021 4:12 PM Note Text: Heart, Vascular AND Thoracic [place] Department of Cardiovascular Medicine TELEPHONE VISIT PROGRESS [...] in ~6 months. Will see a local signaler at the end of the month. Data Reviewed: No new labs Assessment: She is doing well clinically and her BP is controlled. ? Plan: 1. She was instructed to continue the current medical program. 2. RTC per post-transplant protocol. Total Time Spent: 21-30 minutes Nicolette Rice, [facility]12-14-2017 History of Past illness Narrative* Problem [...] of this encounter (statuses as of 04/05/2022) [facility] History of Past illness Narrative* Problem [...] of this encounter (statuses as of 04/06/2022) [facility] History of Past illness Narrative* Problem [...] of this encounter (statuses as of 04/12/2022) [facility] History of Past illness Narrative* Problem [...] of this encounter (statuses as of 04/24/2022) [facility] History of Past illness Narrative* Problem [...] of this encounter (statuses as of 05/08/2022) [facility] History of Past illness Narrative* Problem [...] of this encounter (statuses as of 07/03/2022) [facility] History of Past illness Narrative* Problem [...] of this encounter (statuses as of 07/05/2022) [facility] History of Past illness Narrative* Problem [...] of this encounter (statuses as of 08/02/2022) [facility] History of Past illness Narrative* Problem [...] of this encounter (statuses as of 09/11/2022) [facility] Future Appointments Appointment Date:08/01/2022 01:50:00 PM Scheduled Provider: Location:[facility] Appointment Type:Surgery FT Diagnostic Tests Pending * CMV Antibody IgM 07/16/22 Future Scheduled Tests Laboratory* Fecal WBC Lactoferrin 07/12/22 * Giardia lamblia, Direct Detection EIA 07/12/22 * O & P Exam, Routine 07/12/22 * Clostridium difficile by PCR 07/12/22 * Enteric Panel by PCR 07/12/22 [facility] Diagnosis Heart transplanted (HCC) Heart replaced by transplant [facility] Diagnosis Heart replaced by transplant (HCC)- Primary Heart replaced by transplant [facility] Diagnosis Heart replaced by transplant (HCC)- Primary Heart replaced by transplant Heart transplanted (HCC) Heart replaced by transplant [facility] Diagnosis Heart transplanted (HCC) Heart replaced by transplant [facility] Diagnosis Heart transplanted (HCC) Heart replaced by transplant documented in this encounter [facility] noteNo assessment information availableOhiohealth 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 Advance Directive(s) 11/14/2017 5:44 AM Advance Directive(s) 01/02/2012 12:00 AM Advance Directive(s) 01/17/2007 12:00 AM Documents on File Type Date Recorded 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 Advance Directive(s) 01/02/2012 Advance [...] or prosecute any alcohol or drug abuse patient.[facility] HospitalIn the event this information is protected by the Federal Confidentiality of Alcohol and Drug Abuse Patient Records regulations: The Federal rules restrict any use of the information to criminally investigate or prosecute any alcohol or drug abuse patient.[facility] HospitalIn the event this information is protected by the Federal Confidentiality of Alcohol and Drug Abuse Patient Records regulations: The Federal rules restrict any use of the information to criminally investigate or prosecute any alcohol or drug abuse patient.[facility] HospitalIn the event this information is protected by the Federal Confidentiality of Alcohol and Drug Abuse Patient Records regulations: The Federal rules restrict any use of the information to criminally investigate or prosecute any alcohol or drug abuse patient.[facility] HospitalIn the event this information is protected by the Federal Confidentiality of Alcohol and Drug Abuse Patient Records regulations: The Federal rules restrict any use of the information to criminally investigate or prosecute any alcohol or drug abuse patient.[facility] HospitalIn the event this information is protected by the Federal Confidentiality of Alcohol and Drug Abuse Patient Records regulations: The Federal rules restrict any use of the information to criminally investigate or prosecute any alcohol or drug abuse patient.[facility] HospitalIn the event this information is protected by the Federal Confidentiality of Alcohol and Drug Abuse Patient Records regulations: The Federal rules restrict any use of the information to criminally investigate or prosecute any alcohol or drug abuse patient.[facility] HospitalIn the event this information is protected by the Federal Confidentiality of Alcohol and Drug Abuse Patient Records regulations: The Federal rules restrict any use of the information to criminally investigate or prosecute any alcohol or drug abuse patient.[facility] HospitalIn the event this information is protected by the Federal Confidentiality of Alcohol and Drug Abuse Patient Records regulations: The Federal rules restrict any use of the information to criminally investigate or prosecute any alcohol or drug abuse patient.[facility] Reason for Visit (unrecogniz ed section and content) Reason Comments Rx Refills Reason Comments Heart Transplant Follow Up Labs Reason Comments Heart Transplant Follow Up Reason Comments Heart Transplant Follow Up labs Reason Comments Heart Transplant Follow Up Lab Meeting Reason Comments Refill Request Care Teams (unrecognized sec tion and content) Structural Design Engineer Relationship Specialty Start Date End Date Tao Rooney MD [address] [place] [id number] PCP - General Family Practice 05/13/19 Structural Design Engineer Relationship Specialty Start Date End Date Tao Rooney MD [address] [place] [id number] PCP - General Family Practice 05/13/19 Structural Design Engineer Relationship Specialty Start Date End Date Tao Rooney MD [address] [place] [id number] PCP - General Family Practice 05/13/19 Structural Design Engineer Relationship Specialty Start Date End Date Tao Rooney MD [address] [place] [id number] PCP - General Family Practice 05/13/19 Structural Design Engineer Relationship Specialty Start Date End Date Tao Rooney MD [address] [place] [id number] PCP - General Family Practice 05/13/19 Structural Design Engineer Relationship Specialty Start Date End Date Tao Rooney MD [address] [place] [address] PCP - General Family Medicine 05/13/19 Team Status: Inactive Member Role Status Dates NON STAFF Attending Provider Active Start: Padma chavis 2023 End: June 18, 2024 INFORMATION SOURCE (unrecogn ized section and content) DATE CREATED AUTHOR 09/01/2022 [facility] DATE CREATED AUTHOR AUTHOR'S ORGANIZ ATION 03/09/2023 [facility] DATE CREATED AUTHOR AUTHOR'S ORGANIZ ATION 04/08/2023 [facility] DATE CREATED AUTHOR AUTHOR'S ORGANIZ ATION 07/12/2024 [facility] DATE CREATED AUTHOR AUTHOR'S ORGANIZ ATION 07/23/2024 [facility] Goals (unrecognized section and content) [...] BE BASED ON THE PRIMARY CLINICAL RECORDS. [employer] provides no warranty or guarantee of the accuracy or completeness of information in this document.
== END 2024-09-05 11:01 | disposition home or self-care (01) ==
LOC: LAB 11:00
PROVIDERS: PCP Family Medicine; Visit Provider Nurse Practitioner Family
DX: E03.9 Hypothyroidism, unspecified (principal)
CPT/HCPCS: 36415; 83540

== ENCOUNTER 2024-09-07 09:22 | Outpatient (OUT) | payer MEDICARE, SELFPAY ==
--- OUTSIDE RECORDS SUMMARY | 2024-09-07 09:39 | XMS_ITS | CCD ---
Author Organization [facility] ion Partnership [facility] Care Team Providers Care Sack Filler Name Role Phone Tao Rooney MD Primary Care Provider [phone] SCOT ROGERS Primary Care Physician Tao Rooney MD Primary Care Provider [phone] NICOLETTE RICE Attending UnavailARELIS Rivera Referring Unavailable TAO ROONEY Primary Care Unavailable Tao Rooney MD Primary Care Provider [phone] TAO HEBERT Primary Care Unavailable [...] Unavailable AMY Sanchez, NANCY Admitting Unavailable JAZLYN DUBSOE Consulting Unavailable AMY Sanchez, NANCY Consulting Unavailable [...] Unavailable HOY ., DR BURGER Attending Unavailable [place], DR JAZLYN Marcelino Consulting Unavailable SUE, SCOT [...] INOPHEN] Drug Allergy 05-18-20 14 GI Upset [facility] Work Phone: (11 sources) Promethazine; Translations: [PROMETHAZINE HCL] Drug Allergy 10-11-20 05 Other: See Comments [facility] (3 sources) Levamisole; Translations: [Phenergan] Drug Allergy 04-07-20 13 [facility] Repository (1 source) Morphine Drug Allergy [facility] Repository (1 source) No Known Medication Allergies; Translations: [No Known Medication Allergies] Propensity to adverse reactions (disorder) [facility] Repository (2 sources) Promethazine; Translations: [promethazine] Drug Allergy 08-12-20 22 Loss of consciousness (finding) [facility] Medications Current Medications Medication Drug Class(es) Dates [...] 04-08-2023 Episodic Other aftercare (1 source) 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 Daly for follow up on 09/14/2024. She verbalized understanding. [facility] 36on 07-21-2024 36 Regarding tacrolimus level drawn on 07/07/2024: MD Kaela Smith MA Did she have the echo? Her tacrolimus level is slightly high. I want a repeat in 2 months. *Dr. 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 Will you review this and then I will call Sylvia. Thanks. Normal [facility] Office Visiton 07-01-2024 Follow-up visit [id number] Sylvia Herrera 1945 F Date Provider Department Center 07/01/2024 ANISHA JACOBS JULIAN [facility] Family History Family history unknown: Yes Level of Service:91935 [place] OFFICE/OUTPATIENT ESTABLISHED MOD MDM 30 MIN Normal [facility] Activated partial thrombopla stin time (aPTT) in platelet poor plasma by coagulation aOrdered By: NON STAFF on 06-18-2024 aPTT Coag (PPP) [Time] 31.8 s 25.1-36.5 [facility] Comment on above: A hematocrit value g reater than 55% may lead to inaccurate results in coagulation testing. Patients having hematocrit values >55% require a special collection tube for coagulation studies. Please contact the laboratory at [phone] for redraw instructions. INR in Platelet poor plasma by Coagulation assayOrdered By: NON STAFF on 06-18-2024 INR Coag (PPP) [Relative time] 1.3 {INR} [facility] Comment on above: INR Therapeutic Rang e [...] Performed By: #### P TT, PT #### [facility] [address] [place] [address] Partial Thromboplastin Timeo n 07-18-2024 aPTT Coag (Bld) [Time] 31.8 s Normal 25.1-36.5 [facility] Comment on above: Result Comment: A he matocrit value greater than 55% may lead to inaccurate results in coagulation testing. Patients having hematocrit values >55% require a special collection tube for coagulation studies. Please contact the laboratory at [phone] for redraw instructions. PERFORMED BY: [facility] [address] [place] [address] PATHOLOGIST INDUSTRIAL HYGIENE TECHNICIAN ANDREIA ARRINGTON M.D. Performed By: #### P TT, PT #### [facility] [address] [place] [address] [facility] Prothrombin time (PT)Ordered By: NON STAFF on 06-18-2024 PT Coag (PPP) [Time] 14.4 s High 9.0-12.9 [facility] Comment on above: A hematocrit value g reater than 55% may lead to inaccurate results in coagulation testing. Patients having hematocrit values >55% require a special collection tube for coagulation studies. Please contact the laboratory at [phone] for redraw instructions. Result Comment: A he matocrit value greater than 55% may lead to inaccurate results in coagulation testing. Patients having hematocrit values >55% require a special collection tube for coagulation studies. Please contact the laboratory at [phone] for redraw instructions. Performed By: #### P TT, PT #### [facility] [address] [place] [address] [facility] 36on 04-06-2024 36 I reviewed the [...] labs as ordered at last visit. Normal [facility] Telephoneon 04-06-2024 Telephone [id number] Sylvia Herrera 1945 F Date Provider Department Center 04/06/2024 ANISHA JACOBS JULIAN Hernandez Family History Family history unknown: Yes [facility] Orders Onlyon 03-18-2024 Orders Only [id number] Sylvia Herrera 1945 Provider Department Center 03/18/2024 Roman4-MITZY ISLAS GUS Hernandez Family History Family history unknown: Yes [facility] Office Visiton 02-03-2024 Follow-up visit [id number] Sylvia Herrera Erin 1945 Provider Department Center 02/03/2024 ANISHA JACOBS JULIAN Hernandez Family History Family history unknown: Yes Level of Service:27038 [place] OFFICE/OUTPATIENT ESTABLISHED MOD MDM 30 MIN [facility] Office Visiton 11-12-2023 Follow-up visit [id number] Sylvia Herrera Erin 1945 Provider Department Center 11/12/2023 ANISHA JACOBS JULIAN Hernandez Family History Family history unknown: Yes Level of Service:10482 [place] OFFICE/OUTPATIENT ESTABLISHED MOD MDM 30-39 MIN [facility] 36on 10-26-2023 36 Her tacrolimus level from 10/16/2023 was 1.4. still very low. I believe she is currently taking tacrolimus (Prograf) 0.5 mg bid. I want her to increase to 1 mg bid and obtain another trough level in 2-3 weeks. [facility] Telephoneon 10-26-2023 Telephone [id number] Sylvia Herrera Erin 1945 Provider Department Center 10/26/2023 ANISHA JACOBS JULIAN Hernandez Family History Family history unknown: Yes [facility] Orders Onlyon 09-30-2023 Orders Only [id number] Sylvia Herrera Erin 1945 Provider Department Center 09/30/2023 Paresh8-KAELA TURNER JULIAN Hernandez Family History Family history unknown: Yes [facility] 36on 08-15-2023 36 Her Tacrolimus troug h level (taken on 08/06/2023, reported 08/14/2023) was low at 1.4. She is currently taking tacrolimus 0.5 mg once a day. Please have her increase it to 0.5 mg twice a day and have a repeat Tacrolimus trough level in 2 weeks. Her target level is around 5-10 ng/ml. Normal [facility] Telephoneon 08-15-2023 Telephone [id number] SharonSylvia 1945 F Date Provider Department Center 08/15/2023 ANISHA JACOBS Family History Family history unknown: Yes Normal [facility] Office Visiton 08-07-2023 Follow-up visit [id number] SharonSylvia 1945 F Date Provider Department Center 08/07/2023 ANISHA JACOBS Family History Family history unknown: Yes Level of Service:79120 [place] OFFICE/OUTPATIENT ESTABLISHED MOD MDM 30-39 MIN Reason for Visit and Comments: Follow-up [755072] - 6 mo f/u no stress test or tacrolimus result as of 08/06 - does she plan on having stress test? Normal [facility] BMPon 04-08-2023 Creatinine [Mass/Vol] 1.3 mg/dL Normal 0.5-1.3 [facility] Comment on above: Performed By: #### 1 [id number], [id number], [id number] ####[facility] [address] [place] [address] Urea nitrogen [Mass/Vol] 36 mg/dL High 5-21 [facility] Comment on above: Performed By: #### 1 [id number], [id number], [id number] ####[facility] [address] [place] [address] Urea nitrogen/Creatinine [Mass ratio] 28 No Units High 10-20 [facility] Comment on above: Performed By: #### 1 [id number], [id number], [id number] ####[facility] [address] [place] [address] Anion gap [Moles/Vol] 11 mmol/L Normal 6-16 [facility] Comment on above: Performed By: #### 1 [id number], [id number], [id number] ####[facility] [address] [address] Calcium [Mass/Vol] 8.6 mg/dL Low 8.9-11.1 [facility] Comment on above: Performed By: #### 1 [id number], 7390458, [id number] ####[facility] [address] [place] [address] Chloride [Moles/Vol] 99 mmol/L Low 101-111 [facility] Comment on above: Performed By: #### 1 [id number], 6859722, 73703825 ####[facility] [address] [place] [address] CO2 [Moles/Vol] 25 mmol/L Normal 21-31 [facility] Comment on above: Performed By: #### 1 2906198, 3934842, [id number] ####[facility] [address] [facility] [place] [address] Glucose [Mass/Vol] 124 mg/dL Normal 55-199 [facility] Comment on above: Result Comment: If t his glucose result represents a fasting glucose, interpretation should refer to the following reference range: 55-99 mg/dL Performed By: #### 1 7381274, 3389117, [id number] ####[facility] [address] [place] [address] Potassium [Moles/Vol] 4.1 mmol/L Normal 3.5-5.3 [facility] Comment on above: Performed By: #### 1 9028085, 2115300, [id number] ####[facility] [address] [facility] [place] [address] Sodium [Moles/Vol] 131 mmol/L Low 135-145 [facility] Comment on above: Performed By: #### 1 1153294, 5086208, [id number] ####[facility] [address] [place] [facility] [address] CHEMISTRYOrdered By: SYSTEM SYSTEM on 04-08-2023 Anion gap [Moles/Vol] 11 mmol/L Normal 6 - 16 mEq/L [facility] Calcium [Mass/Vol] 8.6 mg/dL Low 8.9 - 11. 1 mg/dL [facility] Chloride [Moles/Vol] 99 mmol/L Low 101 - 1 11 mmol/L [facility] CO2 [Moles/Vol] 25 mmol/L Normal 21 - 31 mmol/L [facility] Remisol Creatinine [Mass/Vol] 1.3 mg/dL Normal 0.5 - 1.3 mg/dL [facility] Remisol GFR/1.73 sq M.predicted among non-blacks MDRD (S/P/Bld) [Vol rate/Area] 42 mL/min/1.73 m2 Low >=59mL/min/ 1.73 m2 [facility] Chem S Glucose [Mass/Vol] 124 mg/dL Normal 55 - 199 mg/dL [facility] Potassium [Moles/Vol] 4.1 mmol/L Normal 3.5 - 5.3 mmol/L [facility] Remisol Sodium [Moles/Vol] 131 mmol/L Low 135 - 145 mmol/L [facility] Remisol Troponin I.cardiac [Mass/Vol] 11.10 pg/mL Normal 10.10 - 27.10 pg/mL [facility] Remisol Urea nitrogen [Mass/Vol] 36 mg/dL High 5 - 21 mg/dL [facility] Remisol Urea nitrogen/Creatinine [Mass ratio] 28 mg/mg High 10 - 20 [facility] Remisol Troponin I.cardiac [Mass/Vol] 9.70 pg/mL Low 10.10 - 27.10 pg/mL [facility] Remisol Consent for Treatmenton Consent for Treatment [id number]:12 7 Normal [facility] Discharge Instructionson Discharge Instructions [id number]#[id number]:127 Normal [facility] ED Clinical Summaryon 2022 ED Clinical Summary (Inserted Image. Tram ble to display) [address] [address] ED Clinical Summary Person Information Name: SYLVIA HERRERA Herb/[facility] Age: 77 Years : 1945 Sex: Female Language: Indonesian PCP: SCOT ROGERS CNP Marital Status: Single [...] 04/08/2023 08:56:01 04/08/2023 08:56:01 04/08/2023 08:56:01 ADDRESS: [address] [place] [id number] PHYS DOC NOTES: MEDICAL INFORMATION: Prescriptions Given: [...] With: Address: When: SCOT ROGERS [address] [facility] [place] [address] [phone] Business (1) In 3 days DIAGNOSIS: Chest [...] and Complexity of Problems Differential Diagnosis: [] [facility] Data External documents reviewed: N/A My [...] gland problems. ? Metabolic conditions, such as Sanford's disease or syndrome of inappropriate antidiuresis (SIAD). [...] Follow these instructions at home: ? Take ethq-bqc-qnbruym and prescription medicines only as told by [...] provider. Document Revised: 05/29/2022 Document Reviewed: 05/29/2022 [employer] Patient Education ? 2022 [employer] Pulmonary Medicine Nonspecific Chest Pain, Adult [...] Summary (Inserted Image. Tram ble to display) [place] [id number] Patient Discharge Instructions Person Information Name: SYLVIA HERRERA Age: 77 Years Arrival Date: 04/07/2023 21:18:46 Discharge Diagnosis: Chest pain; Hyponatremia Primary Care Physician: SCOT ROGERS CNP Provider Information Primary Provider: Richard Ca DO [employer] Refrigerated Truck Driver:None The exam and treatment you received in the Emergency Department were for an urgent problem and are not intended as complete care. It is important that you follow up with a doctor, nurse practitioner, or physician?s assistant designer for ongoing care. If your symptoms become [...] When: SCOT ROGERS [address] [place] [address] [phone] Business (1) In 3 days In the event that this physician does not participate in your insurance network, please consult with your insurance company to find a nearby participating provider. Patient Education Materials: Hyponatremia; Nonspecific Chest Pain, Adult A MESSAGE TO ALL PATIENTS REGARDING OPIOIDS PRESCRIPTION OPIOIDS: WHAT YOU NEED TO KNOW Prescription opioids can be used to help relieve gqkywohc-nn-imphzv pain and are often prescribed following a [...] be struggling with addiction, tell your health care worker and ask for guidance or call [facility] National Helpline at [phone]-[phone]. v Source: [place] Departmen (more content not included)... Normal [facility] EMS Documentationon 04-08-20 EMS Documentation Please click on link to see report [id number]+ bwjBDuuNAXJzJNhKHKeBbU2EOo 1WHLix7KbCJs6EIplAJI4EhYoO QovSCBb QFP6HLGaIYvgNw4RKUA9FkE6Ad 3NzX8fPAYlmjLoGGPLU25dDCnr SaB2Go9UMNT3ZDa4Sm2+ICAg ICAgICAgICAgICAgICAgICAgIC AgICAgICAgICAgICAgICAgICAg ICAgICAgICAgICAgICAgICAg ICAgICAgICAgICAgICAgICAgIC ULAaIqRV6vsa0KVRj6oxSvOQo5 XUN9VDhiMBZdRKHvIPSwLWLo FNSdFS5ZNoCgKSSgVKE1WMfxCO QsSRNxyi1PUXJqSVUrDNN3XQNt MDAwMCBuDQowMDAwMDAxODM3 YOMdVHXzDO3IZmNyAVRwOPG0Uy xgYHYxFQOpxj8UDXXtPYBdYmRd OCAwMDAwMCBuDQowMDAwMDAy DvbdPKEkGVIzNE5IZgSeRCUiLC SmKMCfUULqNFBodh2XHLMvJROj IzD3JqZxKKPtUCBiSJihIIZk LZFnZNDfVVHcVJRnAM7NYaWvCM UbGLX9NPvyXZTmFKOvqu8URQAe KUOkJzj9UACcRXZbTVIgPSgy NMEuDXEzHvF2SXJvMJLrBJ6AWa OkQIKhGSN2GWSbNYZrZESylk4W DXOeNROkGAD0YNFjMEHoXGRy IYqzROQcKOK1AnAoJRPlUKDiJP 2DIuKxVYPqMRS3EpwlWLJsGJMp xt2GQHAaIESsVLx3PVUvWTYt JKMuHHhqBHPiDSY3GyH8FCQmGD MrCB8VVaNeNZLvESZ2NkjiIYNa JRElwi6ZAVYjJSSkWYkzAVOl CFLqHNMiVFmcGWUjJPF6DEJ6YO XrBZDgXL9QCoDnRBYaXYT3Kemr QJDqBAAlnv4WVZJoDVHtVfi6 ZlZvQVOfAFIxZEhmSXXaMQM8VW J8BNDfVPEsUZ0GCxLlECSeYBdl PIPjVJUjQATkfu1RANXpMMBc OTkyMiAwMDAwMCBuDQowMDAwMD G3AIJ7QCAzVSVjRP5PBoUfXBru ZRRFGek7Wj9RKMIjPVXHJXXF H5LpIFREAdyFPWK4FOG3WVx5QB LvAEvyXqQ2Snn8TmTVMRK0Nwg2 WLbXZXH2YGo9YCSGY5P0HUsG NTZDRTA+KMbnIQRmbwS7MsM9Pz ajJm7pbPQ1KUShIkziP7w3VQJj RgpgU732jtRuHWbGVWaTGndS TxJfJhP1qAPYEOETW4B3I97eI8 4oAO1RGFeuU5y3PnuGJZC9BGzX fOeQQrPhA93rMZniYOScL4Ek RjzigWmuUNE6J5IvhCW1A3nqx5 9hDIOTUCeEh4lsXWW2X44XBugK IvnEswLHA7e7jPEAzFP2Yxmn G9joItRbOKSDVPAzTtHnYguQW4 GGR9rBAt3qCj3+ICAgICAgICAg ICAgICAgICAgICAgICAgICAg ICAgICAgICAgICAgICAgICAgIC AgICAgICAgICAgICAgICAgICAg ICAgICAgICAgICAgICAgICAg ICAgICAgICAgICAgICAgICAgIC AgICAgICAgICAgICAgICAgICAg ICAgICAgICAgICAgICAgICAg ICAgICAgICAgICAgICAgICAgIC AgICAgICAgICAgICAgICAgICAg ICAgICAgICAgICAgICAgICAg ICAgICAgICAgICAgICAgICAgIC AgICAgICAgICAgICAgICAgICAg ICAgICAgICAgICAgICAgICAg ICAgICAgICAgICAgICAgICAgIC AgICAgICAgICAgICAgICAgICAg ICAgICAgICAgICAgICAgICAg ICAgICAgICAgICAgICAgICAgIC AgICAgICAgICAgICAgICAgICAg ICAgICAgICAgICAgICAgICAg ICAgICAgICAgICAgICAgICAgIC AgICAgICAgICAgICAgICAgICAg ICAgICAgICAgICAgICAgICAg FYICZrB5FAQ6hGKqBl6TSS1MLC LJV1JDSz8RFVPrJQ5fee9OIGlS K75fsSUyNYNeTNTwXGMIOn8U aUEmIWR4rE6jOPl9THQyQcbwOa a6LX9VV536jGickoRzFUJbTIMH Dh9DEYlpVY1uHIDnIWZwCj3d ZLvcPVTiZPKzFxHhWJJFU2W7uB MzJ6AnmUSsh1rMLw8FKjYfUU2v af5QIFw4ZXGqx5XtMZx9AWup DhnknYVuDB2OvKF9ZBNiD31oFE wkPWIxK6TaIIIyISlsBaT3Oaz+ Mo3Bn5NeEOHiDSb2cJLgWRNv YGDLYFBgYLjCAyLhQAEKUxiwAr A3AjStNHSs5URwAIRk20PQQjSp UiWlTQjyCnJxoVZS9PrzJzZP PHnd0ZqPHfWWDsWHcfR1CXrlRB LSWieKYQc9SmSmVzeZ2FbTpfGa 8D1NSEYWAdpDJtGkPOQ4enRe uK5EDO9mk9WmNYsHCwlfLQKsHq nPFvf7Ac5Bi405PR42kpSoWaHf BVXMLKhcICFniVOSe7eaLsYq SXU7WDXxPcskWDovOURpVD87CY SnDWKHNg7DDNVjvHFbTXOvAPfP J0pHHenpB4TePSpXY5dmYtZ2 IDggMCBSCj4+Cj4+Mj1RpBBbRV 3NCSakZb4+ANnykuFxLauJNa9N BLOwJO2uke2VRPtCC3XXo1ve UqOvNDD0YZScDskoCZzlSowqcA QiUM6TmHL2BWQwK80uOVhgZDUa W2OkCIi6Yn6MSRCigPQgBHIr OYqMW7hIGckzT6JtCBsEV7jlMf M3BLQ9QTYeIlx+Pgo+PtfhA2Vo uYeoPPNjWr1tpTnxMHpwGZTr BR8pwvHbsJd+Pe2Gk5UmINPlXE j5gHQA8OOi2REwYVHvHFF5WKMk qhABNDjc1QyXeSBrZtGesEFi M4qiPKTx24lQUYWaNjjYg5sqYt Mo5OpKIA+ML3BFddKgFlVfaj0T TYpakzVowCAyRN5ERpMtIK1y jo8YWLp5OQUtn0VjBUu5VLfbDs 2iT02kdi2dnYatW7HdYDt+Pg0K PO6jn7PjDJlEGiUrYHHod6Lt RQm6RHufKx3kN73bri7ehQwjQ4 EgMQovTEMgMAovTEogMAovTFcg LYjpMAurXIxyH0NzuPP4BQfi A5VbBPd+Vu1QKU9ss0UcSDbQAt DvKDPgn5WiSIl9QDkjVw6nF19u op4moOhiT0LmYN4nEaLnSnpt TEMgMAovTEogMAovTFcgMQovTU ffWMiqT8FusDI5LXyqD0SdWG2c MzMzMwo+Cn0FOV0gm2JjHKqV LsWtXXNqg0SrNDg0DMswAm7sV4 9jvu2vaVsrO6XoYT0bVWVbYQf+ Tk4XUW7ls2IjRApNHoMyKXTm n7ZjLRu3TOohEr3vM72vmi7efX diY7BoGH9hRBB7MLjpLERtDNno TEogMAovTFcgMQovTUwgNAov W8XrtTJ0VFsoJ9XbJQ6zAXE3GA o+Gz5DZE2mi9WzAVkOHaA2NJIn m2FeAIh8MTwmBAN8ofa1IQvf Kpe4GLHpIGVmCS59XCGqZGn3Xf 3AR4UbgGGowg7CnILqCTADK5Co SRNeviqyGOxOW1NbsJ9wP2Rj M8MpP9NhhvlwFDYCSzcaU77crb TrISpaHHG5KCUhJEO2AB8LP3A2 vIVqBCUqvLC6LUp2bkIpHJmx UzYaC0Dtf95xRJbDK5NyRTnyVt o5ByWcZim8OgRoYnf2V39HJ5Tp LYfdMeo1PxAlZqx6MxGwPvi5 G81ZX6YwxIThjzQwMFTjKVoxKv CcS8Qyq29MsADlUNLNO48fIIq+ YulyU6doFWsaX2R9kUNlXjm+ WmatWRteLNOoSVA1vWEicqe+Pg 0YIA4en7BwLHtOYbU1VFNes5Yc SYa4IUerRQH5bhx9HVroKbo1 ECCtISArEH33TNMoXLu1Iy9LQ3 SxcQBvmq7IsFLzRNVCD9FbSPYg vjgrDJaCI7HpyV4wO4CjX5Bm J9ByiscwCIICOqpeZ98wmfGqAR e0SFV5NyK7EGG4Kh37Df6RZ6A3 cNEpEPMfnTZ3PNu4beOeTUny HnOkD8Ntt46sKCjZE2DsyW4iop WxIS08EYqwIG2gBPodTSmtRSPp Zs5GqbQxLPClCdGxTFBdJUAh El1BcP2ntLmkmmF8uYUgDkrwVf SyI9Moi78nZId3HRssPcCwSzFv VMN7VTKpNCC8AOMzMVW5ANzt ZoVnUjStNPF9DIPgUPH7JWMnYU V9RIinQJ7cHQysTJqpQPLfKk2J lS7hrYhofaR5aESnFyicDrQc Cj4+Ocn0Um9MOXVzZH66PdfdRA 17HgdyMW81OwrsDk7YUJVsLL19 XbIjPR83PsEsBN42JcMoDb9B w98wcC5jBxMnTD2GA4I0esW8kW 6tLMzcELVrLg0DOYUFIa2qGs1+ Vg4WgUZvpQ5zNTrrEJCrXy9+ Et9FrKAfSG6XAQU7IWQpFf3+DQ scclElIkyGNw3VYAWpDRFtPlpU Iqs7Nj3HWWHvHk9daEQvWHzV IY2SO7YiE38fIFxQW7Avs7Pewe VurpKAu558rhSbHNahHISLBChq DK6ox0NurrvtX3mbHK48sDO8 PSiLE2M4PoI4pCAkZ1F4uQQbPb 4Ts2QmcWQgJVExDEilFHCEIu7V dUKzHO4Bh465Zk2+DQplbmRv PpcTRc7VLVtzZXCtLvxFKag7Xw 0EHCGiLa9olIKjHDhXYO4HG2Bv U98pAHvFI2GKRBJ9t3WvbNac Tr2cHDwHU39rRHEfzM7zQQuZOY YfiYc9uBlQF1JtJ6yhhIL6UWpO ZG9i (more content not included)... Normal [facility] EMS Documentation Please click on link to see report Normal [facility] Comment on above: Result Comment: Miss ing Attachment - attachment exceeds size limitation [id number] Can be viewed in source system EMS Documentation [id number]#[id number]:127 [facility] Monitor Recordon 04-08-2023 Monitor Record [id number]#[id number]:127 [facility] Progress Note-Nurseon 2022 Progress Note-Nurse Pt. requesting [...] Sensitivity Troponin I Instructions For Use, [employer] [place], July 2018) Performed By: #### 2 [id number], [id number], [id number], 5081811, [id number], [id number] ####[facility] [address] [place] [address] Troponin 3 Hr.on 04-08-2023 Troponin I.cardiac [Mass/Vol] 9.70 pg/mL Low 10.10-27.10 [facility] Comment on above: Result Comment: The 95% CI (Confidence Interval) PPV (Positive Predictive Value) for myocardial infarction in females is 38 pg/mL, in males 51 pg/mL. The results should be used in conjunction with clinical conditions of myocardial infarction. (Access High Sensitivity Troponin I Instructions For Use, [employer], July 2018) Performed By: #### 1 [id number] ####[facility] [address] [place] [address] Troponin 6 Hr.on 04-08-2023 Troponin I.cardiac [Mass/Vol] 11.10 pg/mL Normal 10.10-27.10 [facility] Comment on above: Result Comment: The 95% CI (Confidence Interval) PPV (Positive Predictive Value) for myocardial infarction in females is 38 pg/mL, in males 51 pg/mL. The results should be used in conjunction with clinical conditions of myocardial infarction. (Bulb High Sensitivity Troponin I Instructions For Use, [employer], July 2018) Performed By: #### 1 [id number], [id number], [id number] ####[facility] [address] [place] [address] XR Chest Single Viewon 04-08 XR Chest [...] Order added by Discern Expert. Result Comment: Events Manager brennan kidney disease could be indicated at eGFR's of less than 60 mL/min/1.73m2. Kidney failure is indicated at less than 15 mL/min/1.73m2. Performed By: #### 1 [id number], [id number], [id number] ####[facility] [address] [place] [address] Auto Diffon 04-07-2023 Basophils/100 WBC (Bld) 0.4 % Normal 0.0-2.0 [facility] Comment on above: Order Comment: Order Added by Discern Expert. Performed By: #### 2 [id number], [id number], [id number], [id number], [id number], [id number] ####[address] [place] [address] Basophils/Leukocytes Auto (Bld) [Pure # fraction] 0.0 E9/L Normal 0.0-0.2 [facility] Comment on above: Order Comment: Order Added by Discern Expert. Performed By: #### 2 [id number], [id number], [id number], [id number], [id number], [id number] ####[address] [place] [address] Eosinophils/100 WBC (Bld) 3.0 % Normal 0.0-8.0 [facility] Comment on above: Order Comment: Order Added by Discern Expert. Performed By: #### 2 [id number], [id number], [id number], [id number], [id number], [id number] ####[address] [address] Eosinophils/Leukocyt es Auto (Bld) [Pure # fraction] 0.2 E9/L Normal 0.0-0.5 [facility] Comment on above: Order Comment: Order Added by Discern Expert. Performed By: #### 2 [id number], [id number], [id number], 8686476, [id number], [id number] ####[address] [place] [address] Lymphocytes/100 WBC (Bld) 15.4 % Normal 14.0-50.0 [facility] Comment on above: Order Comment: Order Added by Discern Expert. Performed By: #### 2 [id number], [id number], [id number], [id number], [id number], [id number] ####[address] [address] Lymphocytes/Leukocyt es Auto (Bld) [Pure # fraction] 1.1 E9/L Normal 1.0-4.0 [facility] Comment on above: Order Comment: Order Added by Discern Expert. Performed By: #### 2 801992, [id number], 4313524, 5072837, 50215079, 29510137 ####[address] [address] Monocytes/100 WBC (Bld) 12.8 % Normal 4.0-14.0 [facility] Comment on above: Order Comment: Order Added by Discern Expert. Performed By: #### 2 960414, 77953265, 8289293, 5433879, 46635619, 42907303 ####[address] [address] Monocytes/Leukocytes Auto (Bld) [Pure # fraction] 0.9 E9/L Normal 0.2-1.0 [facility] Comment on above: Order Comment: Order Added by Discern Expert. Performed By: #### 2 096464, 59746210, 2429900, 0860084, 22787736, 61460629 ####[address] [address] Neutrophils/100 WBC (Bld) 68.4 % Normal 36.0-75.0 [facility] Comment on above: Order Comment: Order Added by Discern Expert. Performed By: #### 2 907239, 45747473, 9512242, 1607784, 82332223, 29563123 ####[address] [address] Neutrophils/Leukocyt es Auto (Bld) [Pure # fraction] 5.0 E9/L Normal 2.0-7.5 [facility] Comment on above: Order Comment: Order Added by Discern Expert. Performed By: #### 2 760640, 15798348, 7405261, 0185503, 45875043, 71540226 ####[facility] [address] [place] [address] BMPon 04-07-2023 Creatinine [Mass/Vol] 1.5 mg/dL High 0.5-1.3 [facility] Comment on above: Performed By: #### 2 039762, 63133938, 3525521, 8867058, 09110356, 89839953 ####[facility] [address] [place] [address] Urea nitrogen [Mass/Vol] 40 mg/dL High 5-21 [facility] Comment on above: Performed By: #### 2 029281, 82020512, 9173085, 5590617, 89313300, 84538733 ####[facility] [address] [place] [address] Urea nitrogen/Creatinine [Mass ratio] 27 No Units High 10-20 [facility] Comment on above: Performed By: #### 2 399251, 43799691, 1490372, 3870975, 06606821, 31910461 ####[facility] [address] [place] [address] Anion gap [Moles/Vol] 11 mmol/L Normal 6-16 [facility] Comment on above: Performed By: #### 2 269068, 62546898, 0426157, 0567910, 55682754, 50565018 ####[facility] [address] [place] [address] Calcium [Mass/Vol] 8.6 mg/dL Low 8.9-11.1 [facility] Comment on above: Performed By: #### 2 446702, 18010869, 1553338, 0674047, 20593295, 81511025 ####[facility] [address] [place] [address] Chloride [Moles/Vol] 96 mmol/L Low 101-111 [facility] Comment on above: Performed By: #### 2 090069, 88852696, 1784795, 4576456, 66853721, 01425479 ####[facility] [address] [place] [address] CO2 [Moles/Vol] 24 mmol/L Normal 21-31 [facility] Comment on above: Performed By: #### 2 568244, 56528457, 0282714, 0910083, 44698201, 28907062 ####[facility] [address] [place] [address] Glucose [Mass/Vol] 139 mg/dL Normal 55-199 [facility] Comment on above: Result Comment: If t his glucose result represents a fasting glucose, interpretation should refer to the following reference range: 55-99 mg/dL Performed By: #### 2 612359, 75015109, 3082979, 4143266, 87623131, 85335544 ####[facility] [address] [place] [address] Potassium [Moles/Vol] 4.4 mmol/L Normal 3.5-5.3 [facility] Comment on above: Performed By: #### 2 244362, 52226719, 7773479, 9622399, 31112626, 33536957 ####[facility] [address] [place] [address] Sodium [Moles/Vol] 127 mmol/L Low 135-145 [facility] Comment on above: Performed By: #### 2 337585, 14784720, 2619090, 9043307, 46110374, 72082638 ####[facility] [address] [place] [address] CBC w/ Auto Diffon 3 Erythrocyte distribution width (RBC) [Ratio] 13.0 % Normal 10.9-14.2 [facility] Comment on above: Performed By: #### 2 214895, 04483642, 8169642, 4907236, 11681132, 21149200 ####[facility] [address] [place] [address] Hematocrit (Bld) [Volume fraction] 38.4 % Normal 34.0-46.0 [facility] Comment on above: Performed By: #### 2 462121, 04122700, 9242016, 9673178, 71733314, 75050913 ####[address] [address] Hemoglobin (Bld) [Mass/Vol] 12.6 g/dL Normal 12.0-16.0 [facility] Comment on above: Performed By: #### 2 677791, 25531409, 7747109, 2495980, 83766405, 85826799 ####[address] [address] MCH (RBC) [Entitic mass] 27.9 pg Normal 27.0-34.0 [facility] Comment on above: Performed By: #### 2 586174, 55185861, 0836933, 5520069, 95763627, 52364228 ####[address] [address] MCHC (RBC) [Mass/Vol] 32.7 g/dL Normal 31.4-36.0 [facility] Comment on above: Performed By: #### 2 391650, 37808513, 6848160, 0036298, 26210383, 49504066 ####[address] [address] MCV (RBC) [Entitic vol] 85.3 fL Normal 80.0-100.0 [facility] Comment on above: Performed By: #### 2 150056, 84372655, 2980728, 8914043, 02708216, 41797773 ####[facility] [address] [place] [address] Platelet mean volume (Bld) [Entitic vol] 7.3 fL Normal 6.4-10.8 [facility] Comment on above: Performed By: #### 2 500973, 48519450, 8955367, 6708877, 58268641, 83207174 ####[facility] [address] [place] [address] Platelets (Bld) [#/Vol] 167.0 E9/L Normal 150.0-500.0 [facility] Comment on above: Performed By: #### 2 949048, 79753761, 5857606, 4392408, 65047516, 20411220 ####[facility] [address] [place] [address] RBC (Bld) [#/Vol] 4.5 E12/L Normal 4.3-5.9 [facility] Comment on above: Performed By: #### 2 006350, 51647543, 6044141, 0631096, 13392911, 53206300 ####[facility] [address] [place] [address] WBC corrected for nucl RBC Auto (Bld) [#/Vol] 7.3 E9/L Normal 4.0-11.0 [facility] Comment on above: Performed By: #### 2 744406, 80163748, 3995483, 2133611, 21150707, 80482950 ####[facility] [address] [place] [address] CHEMISTRYOrdered By: SYSTEM SYSTEM on 04-07-2023 Anion [...] the same coagulation reagent and instrumentation as [facility]. Currently there are no coagulation studies available worldwide for children to 14 days, and no normal ranges. Heparin therapeutic range (represented by Anti-Factor Xa activity of 0.2 - 0.4 U/mL) corresponds to PTT of 56.6 - 109.0 sec. Performed By: #### 2 151318, 43693163, 4011606, 2783642, 44775092, 53290136 ####[facility] [address] [place] [address] INR Coag (PPP) [Relative time] 1.2 {INR} Invalid Interpretation Code [facility] Comment on above: Result Comment: INR results are specifically intended to assess patients stabilized on long-term Anticoagulation therapy suggested INR?s ?Less Intensive Anticoagulation? 2.0 ? 3.0 Conventional Range 3.0 ? 4.5 Performed By: #### 2 087125, 88449460, 2612841, 1289329, 40382569, 92814171 ####[facility] [address] [place] [address] PT Coag (PPP) [Time] 12.9 second(s) High [...] the same coagulation reagent and instrumentation as [facility]. Currently there are no coagulation studies available worldwide for children to 14 days, and no normal ranges. Performed By: #### 2 302042, 28907675, 3326715, 7650016, 15505132, 27264279 ####[facility] [address] [place] [address] Pre-Arrival Noteon 3 Pre-Arrival Note Pre-Arrival Summary Name: , YAZMIN Current Date: 04/07/2023 21:19:11 EDT Gender: Female Date of : Age: 77 Pre-Arrival Type: EMS ETA: 04/07/2023 21:15:00 EDT Primary Care Physician: Presenting Problem: chest pain Pre-Arrival User: Natalia Fischer RN Referring Source: Location: Completion Date/Time: 04/07/2023 21:06:00 [facility] Emergency Department Pre-Hospital Report Form _ Vital Signs: Pre-Hospital Report: Treatment in Route: Response to Treatment: Misc. Issues: Normal [facility] eGFRon 04-07-2023 GFR/1.73 sq M.predicted among non-blacks MDRD (S/P/Bld) [Vol rate/Area] 35 mL/min/1.73 m2 Low >=59 [facility] Comment on above: Order Comment: Order added by Discern Expert. Result Comment: Events Manager brennan kidney disease could be indicated at eGFR's of less than 60 mL/min/1.73m2. Kidney failure is indicated at less than 15 mL/min/1.73m2. Performed By: #### 2 621281, 51625293, 5456735, 2843371, 99490104, 75339688 ####[facility] [address] [place] [address] INFLUENZA A AND B AGon 03-05 INFLUANEGH SEE BELOW Normal [facility] Comment on above: Result Comment: Nega tive for Flu A protein angiten. Infection due to Flu A cannot be ruled out. Flu A angiten in the sample may be below the detection limit of the test. Performed By: #### E RUR #### [facility] Laboratory [address] [place] [address] Dr. Hardeep Rivera INFLUBNEGH SEE BELOW Normal [facility] Comment on above: Result Comment: Nega tive for Flu B protein antigen. Infection due to Flu B cannot be ruled out. Flu B antigen in the sample may be below the detection limit of the test. Performed By: #### E RUR #### [facility] Laboratory [address] [place] [address] Dr. Hardeep Rivera INFLUENZA A AG Negative Normal NEGATIVE SEE COMMENT [facility] Comment on above: Performed By: #### E RUR #### [facility] Laboratory [address] [place] [address] Dr. Hardeep Rivera INFLUENZA B AG Negative Normal NEGATIVE SEE COMMENT [facility] Comment on above: Performed By: #### E RUR #### [facility] Laboratory [address] [place] [address] Dr. Hardeep Rivera SYMPTOMATIC COVID-19 ANTIGEN on 03-05-2023 EUA Statement SEE BELOW Normal The [facility] Comment on above: Result Comment: This [...] revoked sooner. Performed By: #### C IMANIS ####[facility] [address] [address]Dr. Hardeep Rivera SARS-CoV-2 (COVID-19) RNA ULICES+probe Ql (Unsp spec) Positive Abnormal NEGATIVE [facility] Comment on above: Performed By: #### C IMANIS ####[facility] [address] [address]DrLaura Rivera FK506 (TACROLIMUS) WHOLE BLO ODon 02-28-2023 Tacrolimus (FK506), Blood 5.8 ng/mL Normal 2.0-20.0 [facility] Comment on above: Result Comment: Trou gh (immediately following transplant) 15.0 . Trough (steady state, 2 weeks or more after transplant): 3.0 - 8.0 . Performed by LC-MS/MS technology. Performed By: #### F K506T ####[facility] [address] [place] [address]Dr. Hardeep Rivera CBC AUTO DIFFon 02-14-2023 BASO # 0.0 103/ul Normal 0.0-0.1 [facility] Comment on above: Performed By: #### RANDALL OLSON #### [facility] Laboratory [address] [place] [address] Dr. Hardeep Rivera Basophils/100 WBC (Bld) 0.5 % Normal 0.2-2.0 [facility] Comment on above: Performed By: #### RANDALL OLSON #### [facility] Laboratory [address] [place] [address] Dr. Hardeep Rivera EO # 0.2 103/ul Normal 0.0-0.7 [facility] Comment on above: Performed By: #### RANDALL OLSON #### [facility] Laboratory [address] [place] [address] Dr. Hardeep Rivera Eosinophils/100 WBC (Bld) 3.5 % Normal 0.9-7.0 [facility] Comment on above: Performed By: #### HARI OLSONRO #### [facility] Laboratory [address] [place] [address] Dr. Hardeep Rivera Erythrocyte distribution width (RBC) [Ratio] 12.3 % Normal 11.0-15.0 [facility] Comment on above: Performed By: #### HARI OLSONRO #### [facility] Laboratory [address] [place] [address] Dr. Hardeep Rivera Hematocrit (Bld) [Volume fraction] 38.7 % Normal 36.0-48.0 [facility] Comment on above: Performed By: #### HARI OLSONRO #### [facility] Laboratory [address] [place] [address] Dr. Hardeep Rivera Hemoglobin (Bld) [Mass/Vol] 12.6 g/dL Normal 12.0-16.0 [facility] Comment on above: Performed By: #### HARI OLSONRO #### [facility] Laboratory [address] [place] [address] Dr. Hardeep Rivera IG # 0.03 10e3/ul Normal 0.00-0.03 [facility] Comment on above: Performed By: #### HARI OLSONRO #### [facility] Laboratory [address] [place] [address] Dr. Hardeep Rivera IG % 0.5 % Normal 0.0-0.5 [facility] Comment on above: Performed By: #### HARI OLSONRO #### [facility] Laboratory [address] [place] [address] Dr. Hardeep Rivera LYMPH # 0.8 103/ul Critically low 1.2-3.8 [facility] Comment on above: Performed By: #### HARI OLSONRO #### [facility] Laboratory [address] [place] [address] Dr. Hardeep Rivera Lymphocytes/100 WBC (Bld) 13.2 % Critically low 20.5-60.0 [facility] Comment on above: Performed By: #### HARI OLSONRO #### [facility] Laboratory [address] [place] [address] Dr. Hardeep Rivera MANUAL DIFF REQ NO Normal [facility] Comment on above: Performed By: #### Deedee PINON UMICRO #### [facility] Laboratory [address] [place] [address] Dr. Hardeep Rivera MCH (RBC) [Entitic mass] 28.3 pg Normal 26.7-34.0 [facility] Comment on above: Performed By: #### Deedee PINON UMICRO #### [facility] Laboratory [address] [place] [address] Dr. Hardeep Rivera MCHC (RBC) [Mass/Vol] 32.6 g/dL Normal 29.9-35.2 [facility] Comment on above: Performed By: #### Deedee PINON UMICRO #### [facility] Laboratory [address] [place] [address] Dr. Hardeep Rivera MCV (RBC) [Entitic vol] 87.0 fL Normal 81.0-99.0 [facility] Comment on above: Performed By: #### Deedee PINON UMICRO #### [facility] Laboratory [address] [place] [address] Dr. Hardeep Rivera MONO # 0.8 103/ul Normal 0.3-0.8 [facility] Comment on above: Performed By: #### Deedee PINON UMICRO #### [facility] Laboratory [address] [place] [address] Dr. Hardeep Rivera Monocytes/100 WBC (Bld) 12.9 % Critically high 1.7-12.0 [facility] Comment on above: Performed By: #### Deedee PINON UMICRO #### [facility] Laboratory [address] [place] [address] Dr. Hardeep Rivera NEUT # 4.4 103/ul Normal 1.4-6.5 [facility] Comment on above: Performed By: #### Deedee PINON UMICRO #### [facility] Laboratory [address] [place] [address] Dr. Hardeep Rivera Neutrophils/100 WBC (Bld) 69.4 % Normal 43.0-75.0 [facility] Comment on above: Performed By: #### Deedee PINON, UMICRO #### [facility] Laboratory [address] [address] [address] Hardeep Rivera Platelet mean volume (Bld) [Entitic vol] 9.0 fL Critically low 9.5-13.5 [facility] Comment on above: Performed By: #### Deedee PINON, UMICRO #### [facility] Laboratory [address] [address] [address] Hardeep Rivera PLT 205 103/ul Normal 150-450 [facility] Comment on above: Performed By: #### Deedee PINON, UMICRO #### [facility] Laboratory [address] [address] [address] Hardeep Rivera RBC 4.45 106/ul Normal 4.20-5.40 [facility] Comment on above: Performed By: #### Deedee PINON, UMICRO #### [facility] Laboratory [address] [address] [address] Hardeep Rivera WBC 6.3 103/ul Normal 4.0-11.0 [facility] Comment on above: Performed By: #### Deedee PINON, UMICRO #### [facility] Laboratory [address] [address] [address] HEAD WO CONon [...] Date: 2023-02-14 15:46 Normal [facility] ER URINE PROFILEon 3 Bilirubin Ql (U) Negative Normal NEGATIVE [facility] Comment on above: Performed By: #### Deedee PINON UMICRO #### [facility] Laboratory [address] [place] [address] Dr. Hardeep Rivera Clarity (U) CLEAR Normal CLEAR [facility] Comment on above: Performed By: #### Deedee PINON UMICRO #### [facility] Laboratory [address] [place] [address] Dr. Hardeep Rivera Color (U) LT. YELLOW Normal YELLOW [facility] Comment on above: Performed By: #### Deedee PINON UMICRO #### [facility] Laboratory [address] [place] [address] Dr. Hardeep Rivera ERUCHIDI A micrscopic examina tion will be performed if indicated. Normal [facility] Comment on above: Performed By: #### Deedee PINON UMICRO #### [facility] Laboratory [address] [place] [address] Dr. Hardeep Rivera Glucose Ql (U) Negative Normal NEGATIVE The [facility] Comment on above: Performed By: #### Deedee PINON UMICRO #### [facility] Laboratory [address] [place] [address] Dr. Hardeep Rivera Hemoglobin Ql (U) TRACE-INTACT Abnormal NEGATIVE [facility] Comment on above: Performed By: #### Deedee PINON UMICRO #### [facility] Laboratory [address] [place] [address] Dr. Hardeep Rivera Ketones Ql (U) Negative Normal NEGATIVE [facility] Comment on above: Performed By: #### Deedee PIONN UMBENNETTRO #### [facility] Laboratory [address] [place] [address] Dr. Hardeep Rivera LEUKOCYTES Negative Normal NEGATIVE [facility] Comment on above: Performed By: #### Deedee PINON UMICRO #### [facility] Laboratory [address] [place] [address] Dr. Hardeep Rivera Nitrite Ql (U) Negative Normal NEGATIVE [facility] Comment on above: Performed By: #### Deedee PINON UMICRO #### [facility] Laboratory [address] [place] [address] Dr. Hardeep Rivera pH (U) 7.0 [pH] Normal 5-9 [facility] Comment on above: Performed By: #### Deedee PINON UMICRO #### [facility] Laboratory [address] [place] [address] Dr. Hardeep iRvera Protein (U) [Mass/Vol] 30 mg/dL Abnormal NEGATIVE/ TRACE [facility] Comment on above: Performed By: #### Deedee PINON UMICRO #### [facility] Laboratory [address] [place] [address] Dr. Hardeep Rivera SPEC GRAVITY 1.010 Normal 1.005-<=1.0 25 [facility] Comment on above: Performed By: #### Deedee PINON UMICRO #### [facility] Laboratory [address] [place] [address] Dr. Hardeep Rivera UR MICRO IND INDICATED Normal [facility] Comment on above: Performed By: #### Deedee PINON UMICRO #### [facility] Laboratory [address] [place] [address] Dr. Hardeep Rivera Urobilinogen Qn (U) 0.2 {Kevon'U}/dL Normal 0.2 - 1. 0 [facility] Comment on above: Performed By: #### Deedee PINON UMICRO #### [facility] Laboratory [address] [place] [address] Dr. Hardeep Rivera PROF 14(COMP METB)on 023 Albumin [Mass/Vol] 3.5 g/dL Normal 3.4-5.0 [facility] Comment on above: Performed By: #### H STROPN, CMP, TSH ####[facility] [address] [address]Dr. Hardeep Rivera Albumin/Globulin [Mass ratio] 1.2 {ratio} Normal [facility] Comment on above: Performed By: #### H TYLER CMP, TSH ####[facility] [address] [address]Dr. Preethiarabella Rivera ALP [Catalytic activity/Vol] 153 U/L Critically high 46-116 [facility] Comment on above: Performed By: #### H TYLER, CMP, TSH ####[facility] [address] [place] [address]Dr. Hardeep Rivera ALT [Catalytic activity/Vol] 21 U/L Normal 14-59 [facility] Comment on above: Performed By: #### H TYLER CMP, TSH ####[facility] [address] [place] [address]Dr. Hardeep Rivera Anion gap [Moles/Vol] 9.3 mmol/L Normal [facility] Comment on above: Performed By: #### H TYLER CMP, TSH ####[facility] [address] [place] [address]Dr. Hardeep Rivera AST [Catalytic activity/Vol] 23 U/L Normal 15-37 [facility] Comment on above: Performed By: #### H TYLER CMP, TSH ####[facility] [address] [place] [address]Dr. Hardeep Rivera Bilirubin [Mass/Vol] 0.6 mg/dL Normal 0.2-1.0 [facility] Comment on above: Performed By: #### H STRONATHANIEL, CMP, TSH ####[facility] [address] [place] [address]Dr. Hardeep Rivera Calcium [Mass/Vol] 8.4 mg/dL Critically low 8.5-10.1 [facility] Comment on above: Performed By: #### H STRONATHANIEL, CMP, TSH ####[facility] [address] [place], [place] [address]Dr. Hardeep Rivera Chloride [Moles/Vol] 96 mmol/L Critically low 98-107 [facility] Comment on above: Performed By: #### H STROPN, CMP, TSH ####[facility] [address]ucrxbn[address] [place] [address]Dr. Hardeep Rivera CO2 [Moles/Vol] 29.3 mmol/L Normal 21.0-32.0 [facility] Comment on above: Performed By: #### H STROPN, CMP, TSH ####[facility] Yaf[address]zrhzuy[address] [place] [address]Dr. Hardeep Rivera Creatinine [Mass/Vol] 1.16 mg/dL Critically high 0.55-1.02 [facility] Comment on above: Performed By: #### H STROPN, CMP, TSH ####[facility] Qcz[address]im[address] [place], [place] [address]Dr. Hardeep Rivera EGFR-AF NIGERIEN 55 mL/min/1.73m2 Critically low >=60 [facility] Comment on above: Performed By: #### H STROPN, CMP, TSH ####[facility] G[address]kzcfwxx[address] [place] [address]Dr. Hardeep Rivera EGFR-NON AF NIGERIEN 45 mL/min/1.73m2 Critically low >=60 [facility] Comment on above: Performed By: #### H STROPN, CMP, TSH ####[facility] Xmajggrfni[address] [place], [place] [address]Dr. Hardeep Rivera Globulin (S) [Mass/Vol] 2.9 g/dL Normal [facility] Comment on above: Performed By: #### H STROPN, CMP, TSH ####[facility] Feeocnzxis[address] [place] [address]Dr. Hardeep Rivera Glucose [Mass/Vol] 105 mg/dL Normal 74-106 [facility] Comment on above: Performed By: #### H STROPN, CMP, TSH ####[facility] Pesloxiord[address] [place] [address]Dr. Hardeep Rivera Potassium [Moles/Vol] 4.6 mmol/L Normal 3.5-5.1 [facility] Comment on above: Performed By: #### H STROPN, CMP, TSH ####[facility] Qbjziexpen[address] [place] [address]Dr. Hardeep Rivera Protein [Mass/Vol] 6.4 g/dL Normal 6.4-8.2 [facility] Comment on above: Performed By: #### H GLADIS SCOTT, TSH ####[facility] Llpmgrjbnz23[address] [place] [address]Dr. Hardeep Rivera Sodium [Moles/Vol] 130 mmol/L Critically low 136-145 [facility] Comment on above: Performed By: #### H GLADIS SCOTT, TSH ####[facility] Jjmihmdtef[address] [place] [address]Dr. Hardeep Rivera Urea nitrogen [Mass/Vol] 27.0 mg/dL Critically high 7.0-18.0 [facility] Comment on above: Performed By: #### H GLADIS SCOTT, TSH ####[facility] Mbuusvmjks[address] [place], [place] [address]Dr. Hardeep Rivera Urea nitrogen/Creatinine [Mass ratio] 23.3 mg/mg Normal [facility] Comment on above: Performed By: #### H GLADIS SCOTT, TSH ####[facility] Ukhrjxwrzu[address] [place] [address]Dr. Hardeep Rivera PROTIMEon 02-14-2023 INR Coag (PPP) [Relative time] 1.07 {INR} Normal [facility] Comment on above: Performed By: #### P T, PTT ####[facility] Ojdk[address]nhs[address] [place], [place] [address]Dr. Hardeep Rivera INR GUIDELINES SEE BELOW Normal [facility] Comment on above: Result Comment: EDMUND RED INR: 2.0 - 3.0 CONDITIONS NOT LISTED BELOW 2.5 - 3.5 FOR PROSTHETIC HEART VALVE REPLACEMENT 2.5 - 3.5 RECURRENT THROMBOSIS Performed By: #### P T, PTT ####[facility] Cqhvcogmcx[address] [place], [place] [address]Dr. Hardeep Rivera PT Coag (PPP) [Time] 11.3 s Normal 9.0-11.6 [facility] Comment on above: Performed By: #### P T, PTT ####[facility] V[address]xxyyzmg[address] [place] [id number]. Hardeep Rivera PTTon 02-14-2023 aPTT Coag (Bld) [Time] 29.1 s Normal 22.3-36.2 The [facility] Comment on above: Performed By: #### P T, PTT ####[facility] Ybqerqysbs[address] [place] [address]Dr. Hardeep Rivera TROPONIN, HIGH SENSITIVITYon 02-14-2023 HSTROP 10.4 pg/mL Normal 4.0-51.3 The [facility] Comment on above: Result Comment: CUT- OFF POINTS HAVE BEEN ESTABLISHED BASED ON THE FOURTH UNIVERSAL DEFINITIONS OF MYOCARDIAL INFARCTION. THE UPPER REFERENCE LIMIT (URL) OF TROPONIN, DEFINED THE 99TH PERCENTILE OF cTnI DISTRIBUTION IN A REFERENCE POPULATION, HAS BEEN CONFIRMED THE DECISION THRESHOLD FOR ND DIAGNOSIS. Performed By: #### H TYLER CMP, TSH ####[facility] Kxosmiuscv4[address] [place] [address]Dr. Hardeep Rivera TSHon 02-14-2023 TSH 1.237 uIU/mL Normal 0.358-3.740 The [facility] Comment on above: Performed By: #### H TYLER CMP, TSH ####[facility] Jhckovufwc[address] [place] [address]Dr. Hardeep Rivera URINE MICROSCOPIC ONLYon BACTERIA NONE SEEN Normal NONE SEEN The [facility] Comment on above: Performed By: #### Deedee PINON UMICRO #### [facility] Laboratory [address] [place] [address] Dr. Hardeep Rivera Bacteria identified Cx Nom (U) NOT INDICATED Normal The [facility] Comment on above: Performed By: #### E RUR UMICRO #### [facility] Laboratory [address] [place] [address] Dr. Hardeep Rivera CAST NONE SEEN Normal NONE SEEN The [facility] Comment on above: Performed By: #### E RUR UMICRO #### [facility] Laboratory [address] [place] [address] Dr. Hardeep Rivera Crystals LM Nom (Urine sed) NONE SEEN Normal NONE SEEN [facility] Comment on above: Performed By: #### E RUR, UMICRO #### [facility] Laboratory [address] [place] [address] [address] Hardeep Rivera Epithelial cells LM Ql (Urine sed) NONE SEEN Normal NONE SEEN /RARE The [facility] Comment on above: Performed By: #### E RUR, UMICRO #### [facility] Laboratory [address] [place] [address] [address] Hardeep Rivera MUCOUS NONE SEEN Normal NONE SEEN The [facility] Comment on above: Performed By: #### E RUR, UMICRO #### [facility] Laboratory [address] [place] [address] Dr. Hardeep Rivera RBC 0-2 Normal 0-2 [facility] Comment on above: Performed By: #### E RUR, UMICRO #### [facility] Laboratory [address] [place] [address] Dr. Hardeep Rivera WBC NONE SEEN Normal NONE SEEN The [facility] Comment on above: Performed By: #### E RUR, UMICRO #### [facility] Laboratory [address] [place] [address] Dr. Hardeep Rivera XR CHEST 1 Von [...] Date: 2023-02-14 15:50 Normal The [facility] FK506 (TACROLIMUS) WHOLE BLO ODon 02-13-2023 Tacrolimus (FK506), Blood 1.4 ng/mL Critically low 2.0-20.0 The [facility] Comment on above: Result Comment: Trou gh (immediately following transplant) 15.0 . Trough (steady state, 2 weeks or more after transplant): 3.0 - 8.0 . Performed by LC-MS/MS technology. Performed By: #### E RUR #### [facility] Laboratory [address] [place] [address] Dr. Hardeep Rivera PROF 14(COMP METB)on 023 Albumin [Mass/Vol] 3.5 g/dL Normal 3.4-5.0 [facility] Comment on above: Performed By: #### C MP ####[facility] Pkmsxwqylm[address] [place], [place] [address]Dr. Hardeep Rivera Albumin/Globulin [Mass ratio] 1.2 {ratio} Normal [facility] Comment on above: Performed By: #### C MP ####[facility] Wksspskgdy[address] [place], [place] [address]Dr. Hardeep Rivera ALP [Catalytic activity/Vol] 149 U/L Critically high 46-116 [facility] Comment on above: Performed By: #### C MP ####[facility] Riembkazpk[address] [place], [place] [address]Dr. Hardeep Rivera ALT [Catalytic activity/Vol] 19 U/L Normal 14-59 [facility] Comment on above: Performed By: #### C MP ####[facility] Hekksszvsm64[address] [place], [place] [address]Dr. Hardeep Rivera Anion gap [Moles/Vol] 11.7 mmol/L Normal [facility] Comment on above: Performed By: #### C MP ####[facility] Exzikrokrj[address] [place], [place] [address]Dr. Hardeep Rivera AST [Catalytic activity/Vol] 27 U/L Normal 15-37 [facility] Comment on above: Performed By: #### C MP ####[facility] Ivzentlghc[address] [place], [place] [address]Dr. Hardeep Rivera Bilirubin [Mass/Vol] 0.6 mg/dL Normal 0.2-1.0 The [facility] Comment on above: Performed By: #### C MP ####[facility] Anzlsomosr[address] [place], [place] [address]Dr. Hardeep Rivera Calcium [Mass/Vol] 8.5 mg/dL Normal 8.5-10.1 [facility] Comment on above: Performed By: #### C MP ####[facility] Trhkdjsf[address] [place], [place] [address]Dr. Hardeep Rivera Chloride [Moles/Vol] 96 mmol/L Critically low 98-107 [facility] Comment on above: Performed By: #### C MP ####[facility] Qghgqmfldt5[address] [place] [address]Dr. Preethiarabella Miguel CO2 [Moles/Vol] 28.1 mmol/L Normal 21.0-32.0 [facility] Comment on above: Performed By: #### C MP ####[facility] Dfqpfcomsd[address] [place], [place] [address]Dr. Hardeep Rivera Creatinine [Mass/Vol] 1.24 mg/dL Critically high 0.55-1.02 [facility] Comment on above: Performed By: #### C MP ####[facility] Pxvijeawlq[address] [place], [place] [address]Dr. Hardeep Rivera EGFR-AF NIGERIEN 51 mL/min/1.73m2 Critically low >=60 [facility] Comment on above: Performed By: #### C MP ####[facility] Pdcxvalfzn7[address] [place], [place] [address]Dr. Hardeep Rivera EGFR-NON AF NIGERIEN 42 mL/min/1.73m2 Critically low >=60 [facility] Comment on above: Performed By: #### C MP ####[facility] Sowhfwfprm[address] [place], [place] [address]Dr. Hardeep Rivera Globulin (S) [Mass/Vol] 3.0 g/dL Normal [facility] Comment on above: Performed By: #### C MP ####[facility] Skgqpwuqdg[address] [place], [place] [address]DrLaura Rivera Glucose [Mass/Vol] 141 mg/dL Critically high 74-106 [facility] Comment on above: Performed By: #### C MP ####[facility] Ccqchkpfzz7[address] [place], [place] [address]Dr. Hardeep Rivera Potassium [Moles/Vol] 4.8 mmol/L Normal 3.5-5.1 [facility] Comment on above: Performed By: #### C MP ####[facility] Yzeotjkkzh[address] [place], [place] [address]Dr. Hardeep Rivera Protein [Mass/Vol] 6.5 g/dL Normal 6.4-8.2 [facility] Comment on above: Performed By: #### C MP ####[facility] Ugsejksslr[address] [place] [address]Dr. Hardeep Rivera Sodium [Moles/Vol] 131 mmol/L Critically low 136-145 [facility] Comment on above: Performed By: #### C MP ####[facility] Vmgemndxbh4042 [place] [address]Dr. Hardeep Rivera Urea nitrogen [Mass/Vol] 29.0 mg/dL Critically high 7.0-18.0 [facility] Comment on above: Performed By: #### C MP ####[facility] T[address]bslxhwn[address] [place], [place] [address]Dr. Hardeep Rivera Urea nitrogen/Creatinine [Mass ratio] 23.4 mg/mg Normal [facility] Comment on above: Performed By: #### C MP ####[facility] Boavvnjfgr[address] [place], [place] [address]Dr. Hardeep Rivera BNPon 01-09-2023 Natriuretic peptide B (Bld) [Mass/Vol] 336.0 pg/mL Normal <=1,800.0 [facility] Comment on above: Performed By: #### C MP, TSH, BNP, T7 ####[facility] Tblmstvacz[address] [place], [place] [address]Dr. Hardeep Rivera CBC AUTO DIFFon 01-09-2023 BASO # 0.0 103/ul Normal 0.0-0.1 [facility] Comment on above: Performed By: #### C BC #### [facility] Laboratory [address] [place] [address] Dr. Hardeep Rivera Basophils/100 WBC (Bld) 0.4 % Normal 0.2-2.0 [facility] Comment on above: Performed By: #### C BC #### [facility] Laboratory [address] [place] [address] Dr. Hardeep Rivera EO # 0.3 103/ul Normal 0.0-0.7 [facility] Comment on above: Performed By: #### C BC #### [facility] Laboratory [address] [place] [address] Dr. Hardeep Rivera Eosinophils/100 WBC (Bld) 4.4 % Normal 0.9-7.0 [facility] Comment on above: Performed By: #### C BC #### [facility] Laboratory [address] [place] [address] Dr. Hardeep Rivera Erythrocyte distribution width (RBC) [Ratio] 12.3 % Normal 11.0-15.0 [facility] Comment on above: Performed By: #### C BC #### [facility] Laboratory [address] [place] [address] Dr. Hardeep Rivera Hematocrit (Bld) [Volume fraction] 43.3 % Normal 36.0-48.0 [facility] Comment on above: Performed By: #### C BC #### [facility] Laboratory [address] [place] [address] Dr. Hardeep Rivera Hemoglobin (Bld) [Mass/Vol] 13.5 g/dL Normal 12.0-16.0 [facility] Comment on above: Performed By: #### C BC #### [facility] Laboratory [address] [place] [address] Dr. Hardeep Rivera IG # 0.02 10e3/ul Normal 0.00-0.03 [facility] Comment on above: Performed By: #### C BC #### [facility] Laboratory [address] [place] [address] Dr. Hardeep Rivera IG % 0.3 % Normal 0.0-0.5 The [facility] Comment on above: Performed By: #### C BC #### [facility] Laboratory [address] [place] [address] Dr. Hardeep Rivera LYMPH # 1.1 103/ul Critically low 1.2-3.8 The [facility] Comment on above: Performed By: #### C BC #### [facility] Laboratory [address] [place] [address] Dr. Hardeep Rivera Lymphocytes/100 WBC (Bld) 16.0 % Critically low 20.5-60.0 [facility] Comment on above: Performed By: #### C BC #### [facility] Laboratory [address] [place] [address] Dr. Hardeep Rivera MANUAL DIFF REQ NO Normal [facility] Comment on above: Performed By: #### C BC #### [facility] Laboratory [address] [place] [address] Dr. Hardeep Rivera MCH (RBC) [Entitic mass] 28.4 pg Normal 26.7-34.0 [facility] Comment on above: Performed By: #### C BC #### [facility] Laboratory [address] [place] [address] Dr. Hardeep Rivera MCHC (RBC) [Mass/Vol] 31.2 g/dL Normal 29.9-35.2 [facility] Comment on above: Performed By: #### C BC #### [facility] Laboratory [address] [place] [address] Dr. Hardeep Rivera MCV (RBC) [Entitic vol] 91.0 fL Normal 81.0-99.0 [facility] Comment on above: Performed By: #### C BC #### [facility] Laboratory [address] [place] [address] Dr. Hardeep Rivera MONO # 1.0 103/ul Critically high 0.3-0.8 [facility] Comment on above: Performed By: #### C BC #### [facility] Laboratory [address] [place] [address] Dr. Hardeep Rivera Monocytes/100 WBC (Bld) 14.7 % Critically high 1.7-12.0 [facility] Comment on above: Performed By: #### C BC #### [facility] Laboratory [address] [place] [address] Dr. Hardeep Rivera NEUT # 4.4 103/ul Normal 1.4-6.5 The [facility] Comment on above: Performed By: #### C BC #### [facility] Laboratory [address] [place] [address] Dr. Hardeep Rivera Neutrophils/100 WBC (Bld) 64.2 % Normal 43.0-75.0 The [facility] Comment on above: Performed By: #### C BC #### [facility] Laboratory [address] [address] [address] Hardeep Rivera Platelet mean volume (Bld) [Entitic vol] 9.5 fL Normal 9.5-13.5 [facility] Comment on above: Performed By: #### C BC #### [facility] Laboratory [address] [place] [address] [address] Hardeep Rivera PLT 238 103/ul Normal 150-450 [facility] Comment on above: Performed By: #### C BC #### [facility] Laboratory [address] [address] [address] Hardeep Rivera RBC 4.76 106/ul Normal 4.20-5.40 [facility] Comment on above: Performed By: #### C BC #### [facility] Laboratory [address] [place] [address] [address] Hardeep Rivera WBC 6.8 103/ul Normal 4.0-11.0 [facility] Comment on above: Performed By: #### C BC #### [facility] Laboratory [address] [address] [address] Hardeep Rivera FREE THYROXINE INDEX T7on FTI 3.96 Normal 1.30-4.50 [facility] Comment on above: Performed By: #### C MP, TSH, BNP, T7 ####[facility] [address]mi[address] [place], [place] [address]BpDr. Hardeep Rivera T3U 35.0 % Normal 30.0-39.0 [facility] Comment on above: Performed By: #### C MP, TSH, BNP, T7 ####[facility] [address]yt[address] [place], [place] [address]UcDr. Hardeep Rivera T4 [Mass/Vol] 11.30 ug/dL Normal 4.80-13.90 [facility] Comment on above: Performed By: #### C MP, TSH, BNP, T7 ####[facility] Cohrhbmpdb62[address] [place], [place] [address]RtDr. Hardeep Rivera PROF 14(COMP METB)on 023 Albumin [Mass/Vol] 3.9 g/dL Normal 3.4-5.0 The [facility] Comment on above: Performed By: #### C MP, TSH, BNP, T7 ####[facility] [address]fmqtnlnoh[address] [place] [address]Dr. Hardeep Rivera Albumin/Globulin [Mass ratio] 1.2 {ratio} Normal [facility] Comment on above: Performed By: #### C MP, TSH, BNP, T7 ####[facility] [address]jstvxp[address] [place] [address]Dr. Hardeep Rivera ALP [Catalytic activity/Vol] 151 U/L Critically high 46-116 [facility] Comment on above: Performed By: #### C MP, TSH, BNP, T7 ####[facility] [address]cbofwirv[address] [place], [place] [address]Dr. Hardeep Rivera ALT [Catalytic activity/Vol] 30 U/L Normal 14-59 [facility] Comment on above: Performed By: #### C MP, TSH, BNP, T7 ####[facility] [address]eibfeb[address] [place], [place] [address]Dr. Hardeep Rivera Anion gap [Moles/Vol] 15.6 mmol/L Normal [facility] Comment on above: Performed By: #### C MP, TSH, BNP, T7 ####[facility] K[address]tmozqdv[address] [place], [place] [address]Dr. Hardeep Rivera AST [Catalytic activity/Vol] 23 U/L Normal 15-37 [facility] Comment on above: Performed By: #### C MP, TSH, BNP, T7 ####[facility] Vdkogsnelk[address] [place], [place] [address]Dr. Hardeep Rivera Bilirubin [Mass/Vol] 0.7 mg/dL Normal 0.2-1.0 The [facility] Comment on above: Performed By: #### C MP, TSH, BNP, T7 ####[facility] [address]flc[address] [place], [place] [address]Dr. Hardeep Rivera Calcium [Mass/Vol] 9.0 mg/dL Normal 8.5-10.1 [facility] Comment on above: Performed By: #### C MP, TSH, BNP, T7 ####[facility] [address]wejjbah[address] [place] [address]Dr. Hardeep Rivera Chloride [Moles/Vol] 97 mmol/L Critically low 98-107 The [facility] Comment on above: Performed By: #### C MP, TSH, BNP, T7 ####[facility] Ujuruggwcd[address] [place] [address]Dr. Hardeep Rivera CO2 [Moles/Vol] 26.1 mmol/L Normal 21.0-32.0 [facility] Comment on above: Performed By: #### C MP, TSH, BNP, T7 ####[facility] Cgexkfrzzk[address] [place] [address]Dr. Hardeep Rivera Creatinine [Mass/Vol] 1.78 mg/dL Critically high 0.55-1.02 [facility] Comment on above: Performed By: #### C MP, TSH, BNP, T7 ####[facility] Hbfbry[address]gf[address] [place], [place] [address]Dr. Hardeep Miguel EGFR-AF NIGERIEN 33 mL/min/1.73m2 Critically low >=60 [facility] Comment on above: Performed By: #### C MP, TSH, BNP, T7 ####[facility] Sc[address]vonwzh[address] [place], [place] [address]Dr. Hardeep Miguel EGFR-NON AF NIGERIEN 28 mL/min/1.73m2 Critically low >=60 [facility] Comment on above: Performed By: #### C MP, TSH, BNP, T7 ####[facility] [address]zmu[address]rtas[address] [place], [place] [address]Dr. Preethiarabella Rivera Globulin (S) [Mass/Vol] 3.3 g/dL Normal [facility] Comment on above: Performed By: #### C MP, TSH, BNP, T7 ####[facility] [facility] [id number] [place], [place] [address]Dr. Preethiarabella Miguel Glucose [Mass/Vol] 127 mg/dL Critically high 74-106 T [facility] Comment on above: Performed By: #### C MP, TSH, BNP, T7 ####[facility] [id number] [place], [place] [address]Dr. Hardeep Rivera Potassium [Moles/Vol] 3.7 mmol/L Normal 3.5-5.1 [facility] Comment on above: Performed By: #### C MP, TSH, BNP, T7 ####[facility] [id number] [place] [address]Dr. Hardeep Rivera Protein [Mass/Vol] 7.2 g/dL Normal 6.4-8.2 [facility] Comment on above: Performed By: #### C MP, TSH, BNP, T7 ####[facility] [id number] [place] [address]Dr. Hardeep Rivera Sodium [Moles/Vol] 135 mmol/L Critically low 136-145 [facility] Comment on above: Performed By: #### C MP, TSH, BNP, T7 ####[facility] [id number] [place] [address]Dr. Hardeep Rivera Urea nitrogen [Mass/Vol] 54.0 mg/dL Critically high 7.0-18.0 [facility] Comment on above: Performed By: #### C MP, TSH, BNP, T7 ####[facility] [id number] [place] [address]Dr. Hardeep Rivera Urea nitrogen/Creatinine [Mass ratio] 30.3 mg/mg Normal [facility] Comment on above: Performed By: #### C MP, TSH, BNP, T7 ####[facility] [address] [place] [address]Dr. Hardeep Rivera TSHon 01-09-2023 TSH 1.097 uIU/mL Normal 0.358-3.740 [facility] Comment on above: Performed By: #### C MP, TSH, BNP, T7 ####[facility] [id number] [place] [address]Dr. Hardeep Rivera ECHOCARDIO M/2D COMPLETEon 0 12-13-2022 ECHOCARDIO M/2D COMPLETE Patient: SYLVIA HERRERA Exam Date: 12/13/2022 : 1945 Gender:F Ordering : [facility] Admission #: [id number] Family : Order #: [id number] CLICK HERE TO VIEW EXAM ECHOCARDIOGRAM REPORT [...] Area (VTI): 2.23 cm2, 2.23 cm2 Deceleration Duchesne: 1.44 m/s2 Pressure Half-Time: 850.98 ms Peak [...] on 12/14/2022 at 13:49 Normal [facility] US ALAN DOP LEG BILon 023 [...] Date: 2022-12-13 10:51 Normal [facility] BNPon 12-11-2022 Natriuretic peptide B (Bld) [Mass/Vol] 457.0 pg/mL Normal <=1,800.0 [facility] Comment on above: Performed By: #### RANDALL OLSON #### [facility] Laboratory [address] [place] [address] Dr. Hardeep Rivera CBC AUTO DIFFon 12-11-2022 BASO # 0.0 103/ul Normal 0.0-0.1 [facility] Comment on above: Performed By: #### RANDALL OLSON #### [facility] Laboratory [address] [place] [address] Dr. Hardeep Rivera Basophils/100 WBC (Bld) 0.4 % Normal 0.2-2.0 [facility] Comment on above: Performed By: #### RANDALL OLSON #### [facility] Laboratory [address] [place] [address] Dr. Hardeep Rivera EO # 0.2 103/ul Normal 0.0-0.7 [facility] Comment on above: Performed By: #### RANDALL OLSON #### [facility] Laboratory [address] [place] [address] Dr. Hardeep Rivera Eosinophils/100 WBC (Bld) 2.7 % Normal 0.9-7.0 [facility] Comment on above: Performed By: #### HARI OLSONRO #### [facility] Laboratory [address] [place] [address] Dr. Hardeep Rivera Erythrocyte distribution width (RBC) [Ratio] 11.9 % Normal 11.0-15.0 [facility] Comment on above: Performed By: #### HARI OLSONRO #### [facility] Laboratory [address] [place] [address] Dr. Hardeep Rivera Hematocrit (Bld) [Volume fraction] 40.2 % Normal 36.0-48.0 [facility] Comment on above: Performed By: #### Deedee PINON UMICRO #### [facility] Laboratory [address] [place] [address] Dr. Hardeep Rivera Hemoglobin (Bld) [Mass/Vol] 13.5 g/dL Normal 12.0-16.0 [facility] Comment on above: Performed By: #### Deedee PINON UMICRO #### [facility] Laboratory [address] [place] [address] Dr. Hardepe Rivera IG # 0.03 10e3/ul Normal 0.00-0.03 [facility] Comment on above: Performed By: #### Deedee PINON UMICRO #### [facility] Laboratory [address] [place] [address] Dr. Hardeep Rivera IG % 0.4 % Normal 0.0-0.5 [facility] Comment on above: Performed By: #### Deedee PINON UMICRO #### [facility] Laboratory [address] [place] [address] Dr. Hardeep Rivera LYMPH # 0.9 103/ul Critically low 1.2-3.8 [facility] Comment on above: Performed By: #### Deedee PINON UMICRO #### [facility] Laboratory [address] [place] [address] Dr. Hardeep Rivera Lymphocytes/100 WBC (Bld) 11.3 % Critically low 20.5-60.0 [facility] Comment on above: Performed By: #### Deedee PINON UMICRO #### [facility] Laboratory [address] [place] [address] Dr. Hardeep Rivera MANUAL DIFF REQ NO Normal [facility] Comment on above: Performed By: #### Deedee PINON UMICRO #### [facility] Laboratory [address] [place] [address] Dr. Hardeep Rivera MCH (RBC) [Entitic mass] 28.4 pg Normal 26.7-34.0 [facility] Comment on above: Performed By: #### Deedee PINON UMICRO #### [facility] Laboratory [address] [place] [address] Dr. Hardeep Rivera MCHC (RBC) [Mass/Vol] 33.6 g/dL Normal 29.9-35.2 [facility] Comment on above: Performed By: #### HARI OLSONRO #### [facility] Laboratory [address] [place] [address] Dr. Hardeep Rivera MCV (RBC) [Entitic vol] 84.5 fL Normal 81.0-99.0 [facility] Comment on above: Performed By: #### Deedee PINON UMICRO #### [facility] Laboratory [address] [place] [address] Dr. Hardeep Rivera MONO # 1.0 103/ul Critically high 0.3-0.8 [facility] Comment on above: Performed By: #### Deedee PINON UMICRO #### [facility] Laboratory [address] [place] [address] Dr. Hardeep Rivera Monocytes/100 WBC (Bld) 12.5 % Critically high 1.7-12.0 [facility] Comment on above: Performed By: #### Deedee PINON UMICRO #### [facility] Laboratory [address] [place] [address] Dr. Hardeep Rivera NEUT # 5.9 103/ul Normal 1.4-6.5 [facility] Comment on above: Performed By: #### Deedee PINON UMICRO #### [facility] Laboratory [address] [place] [address] Dr. Hardeep Rivera Neutrophils/100 WBC (Bld) 72.7 % Normal 43.0-75.0 [facility] Comment on above: Performed By: #### Deedee PINON UMICRO #### [facility] Laboratory [address] [place] [address] Dr. Hardeep Rivera Platelet mean volume (Bld) [Entitic vol] 8.6 fL Critically low 9.5-13.5 [facility] Comment on above: Performed By: #### Deedee PINON UMICRO #### [facility] Laboratory [address] [place] [address] Dr. Hardeep Rivera PLT 226 103/ul Normal 150-450 [facility] Comment on above: Performed By: #### HARI OLSONRO #### [facility] Laboratory [address] [place] [address] Dr. Hardeep Rivera RBC 4.76 106/ul Normal 4.20-5.40 [facility] Comment on above: Performed By: #### HARI OLSONRO #### [facility] Laboratory [address] [place] [address] Dr. Hardeep Rivera WBC 8.2 103/ul Normal 4.0-11.0 [facility] Comment on above: Performed By: #### Deedee PINON UMICRO #### [facility] Laboratory [address] [place] [address] Dr. Hardeep Rivera FREE THYROXINE INDEX T7on FTI 3.40 Normal 1.30-4.50 [facility] Comment on above: Performed By: #### HARI OLSONRO #### [facility] Laboratory [address] [place] [address] Dr. Hardeep Rivera T3U 34.0 % Normal 30.0-39.0 [facility] Comment on above: Performed By: #### HARI OLSONRO #### [facility] Laboratory [address] [place] [address] Dr. Hardeep Rivera T4 [Mass/Vol] 10.00 ug/dL Normal 4.80-13.90 [facility] Comment on above: Performed By: #### HARI OLSONRO #### [facility] Laboratory [address] [place] [address] Dr. Hardeep Rivera PROF 14(COMP METB)on 023 Albumin [Mass/Vol] 3.8 g/dL Normal 3.4-5.0 [facility] Comment on above: Performed By: #### HARI OLSONRO #### [facility] Laboratory [address] [place] [address] Dr. Hardeep Rivera Albumin/Globulin [Mass ratio] 1.1 {ratio} Normal [facility] Comment on above: Performed By: #### HARI OLSONRO #### [facility] Laboratory [address] [place] [address] Dr. Hardeep Rivera ALP [Catalytic activity/Vol] 192 U/L Critically high 46-116 [facility] Comment on above: Performed By: #### RANDALL OLSON #### [facility] Laboratory [address] [place] [address] Dr. Hardeep Rivera ALT [Catalytic activity/Vol] 22 U/L Normal 14-59 [facility] Comment on above: Performed By: #### RANDALL OLSON #### [facility] Laboratory [address] [place] [address] Dr. Hardeep Rivera Anion gap [Moles/Vol] 11.4 mmol/L Normal [facility] Comment on above: Performed By: #### RANDALL OLSON #### [facility] Laboratory [address] [place] [address] Dr. Hardeep Rivera AST [Catalytic activity/Vol] 22 U/L Normal 15-37 [facility] Comment on above: Performed By: #### RANDALL OLSON #### [facility] Laboratory [address] [place] [address] Dr. Hardeep Rivera Bilirubin [Mass/Vol] 0.5 mg/dL Normal 0.2-1.0 [facility] Comment on above: Performed By: #### RANDALL OLSON #### [facility] Laboratory [address] [place] [address] Dr. Hardeep Rivera Calcium [Mass/Vol] 9.1 mg/dL Normal 8.5-10.1 [facility] Comment on above: Performed By: #### HARI OLSONRO #### [facility] Laboratory [address] [place] [address] Dr. Hardeep Rivera Chloride [Moles/Vol] 93 mmol/L Critically low 98-107 [facility] Comment on above: Performed By: #### RANDALL OLSON #### [facility] Laboratory [address] [place] [address] Dr. Hardeep Rivera CO2 [Moles/Vol] 30.8 mmol/L Normal 21.0-32.0 [facility] Comment on above: Performed By: #### HARI OLSONRO #### [facility] Laboratory [address] [place] [address] Dr. Hardeep Rivera Creatinine [Mass/Vol] 1.49 mg/dL Critically high 0.55-1.02 [facility] Comment on above: Performed By: #### E RUR, UMICRO #### [facility] Laboratory [address] [place] [address] Dr. Hardeep Rivera EGFR-AF NIGERIEN 41 mL/min/1.73m2 Critically low >=60 [facility] Comment on above: Performed By: #### E RUR, UMICRO #### [facility] Laboratory [address] [place] [address] Dr. Hardeep Rivera EGFR-NON AF NIGERIEN 34 mL/min/1.73m2 Critically low >=60 [facility] Comment on above: Performed By: #### E RUR, UMICRO #### [facility] Laboratory [address] [place] [address] Dr. Hardeep Rivera Globulin (S) [Mass/Vol] 3.4 g/dL Normal [facility] Comment on above: Performed By: #### E RUR, UMICRO #### [facility] Laboratory [address] [place] [address] Dr. Hardeep Rivera Glucose [Mass/Vol] 116 mg/dL Critically high 74-106 T [facility] Comment on above: Performed By: #### E RUR, UMICRO #### [facility] Laboratory [address] [place] [address] Dr. Hardeep Rivera Potassium [Moles/Vol] 4.2 mmol/L Normal 3.5-5.1 [facility] Comment on above: Performed By: #### E RUR, UMICRO #### [facility] Laboratory [address] [place] [address] Dr. Hardeep Rivera Protein [Mass/Vol] 7.2 g/dL Normal 6.4-8.2 [facility] Comment on above: Performed By: #### E RUR, UMICRO #### [facility] Laboratory [address] [place] [address] Dr. Hardeep Rivera Sodium [Moles/Vol] 131 mmol/L Critically low 136-145 [facility] Comment on above: Performed By: #### RANDALL OLSON #### [facility] Laboratory [address] [place] [address] Dr. Hardeep Rivera Urea nitrogen [Mass/Vol] 38.0 mg/dL Critically high 7.0-18.0 [facility] Comment on above: Performed By: #### HARI OLSONRO #### [facility] Laboratory [address] [address] [address] Hardeep Rivera Urea nitrogen/Creatinine [Mass ratio] 25.5 mg/mg Normal [facility] Comment on above: Performed By: #### RANDALL OLSON #### [facility] Laboratory [address] [place] [address] Dr. Hardeep Rivera TSHon 12-11-2022 TSH 6.407 uIU/mL Critically high 0.358-3.740 [facility] Comment on above: Performed By: #### RANDALL OLSON #### [facility] Laboratory [address] [place] [address] Dr. Hardeep Rivera [facility]01 SARS-CoV-2 (COVID-19) RNA ULICES+probe Ql (Unsp spec) Not detected Normal NOT DETECTED [facility] Comment on above: Result Comment: This test is not yet approved or cleared by the [place] FDA. When there are no FDA-approved or cleared tests available, and other criteria are met, FDA can make tests available under an emergency access mechanism called an Emergency Use Authorization (EUA). The EUA for this test is supported by the [place] of Health and Human Service's (HHS's) declaration [...] SARS-CoV-2. Performed By: #### C [facility] #### [facility] Laboratory [address] [place] [address] Dr. Hardeep Rivera INFLUENZA A AND B AGon 11-14 [facility] SEE BELOW Normal [facility] Comment on above: Result Comment: Nega tive for Flu A protein angiten. Infection due to Flu A cannot be ruled out. Flu A angiten in the sample may be below the detection limit of the test. Performed By: #### Deedee PINON UMICRO #### [facility] Laboratory [address] [place] [address] Dr. Hardeep Rivera [facility] SEE BELOW Normal [facility] Comment on above: Result Comment: Nega tive for Flu B protein antigen. Infection due to Flu B cannot be ruled out. Flu B antigen in the sample may be below the detection limit of the test. Performed By: #### Deedee PINON UMICRO #### [facility] Laboratory [address] [place] [address] Dr. Hardeep Rivera INFLUENZA A AG Negative Normal NEGATIVE SEE COMMENT [facility] Comment on above: Performed By: #### Deedee PINON ICRO #### [facility] Laboratory [address] [place] [address] Dr. Hardeep Rivera INFLUENZA B AG Negative Normal NEGATIVE SEE COMMENT [facility] Comment on above: Performed By: #### Deedee PINON UMICRO #### [facility] Laboratory [address] [place] [address] Dr. Hardeep Rivera INTERNAL CONTROLS Within Normal Limits Normal Wi thin Normal Limits [facility] Comment on above: Performed By: #### Deedee PINON UMICRO #### [facility] Laboratory [address] [place] [address] Dr. Hardeep Rivera Covid-19 PCR ([facility])on SARS-CoV-2 (COVID-19) RNA ULICES+probe Ql (Unsp spec) Not detected Normal NOT DETECTED [facility] Comment on above: Result Comment: This test is not yet approved or cleared by the [place] FDA. When there are no FDA-approved or cleared tests available, and other criteria are met, FDA can make tests available under an emergency access mechanism called an Emergency Use Authorization (EUA). The EUA for this test is supported by the [place] of Health and Human Service's (HHS's) declaration [...] consistent with SARS-CoV-2. Performed By: #### C [facility] #### [facility] Laboratory [address] [place] [address] Dr. Hardeep Rivera INFLUENZA A AND B [facility] 10-03 [facility] SEE BELOW Normal [facility] Comment on above: Result Comment: Nega tive for Flu A protein angiten. Infection due to Flu A cannot be ruled out. Flu A angiten in the sample may be below the detection limit of the test. Performed By: #### E AKSHAT PINONICRO #### [facility] Laboratory [address] [place] [address] Dr. Hardeep Rivera [facility] BELOW Normal [facility] Comment on above: Result Comment: Nega tive for Flu B protein antigen. Infection due to Flu B cannot be ruled out. Flu B antigen in the sample may be below the detection limit of the test. Performed By: #### E KATHRIN UMICRO #### [facility] Laboratory [address] [place] [address] Dr. Hardeep Rivera INFLUENZA A AG Negative Normal NEGATIVE SEE COMMENT [facility] Comment on above: Performed By: #### E KATHRIN, UMICRO #### [facility] Laboratory [address] [place] [address] Dr. Hardeep Rivera INFLUENZA B AG Negative Normal NEGATIVE SEE COMMENT [facility] Comment on above: Performed By: #### E RUR, ICRO #### [facility] Laboratory [address] [place], [place] [address] Dr. Hardeep Rivera INTERNAL CONTROLS Within Normal Limits Normal Wi thin Normal Limits [facility] Comment on above: Performed By: #### E COLLINSR, ICRO #### [facility] Laboratory [address] [place], [place] [address] Dr. Hardeep Clark [facility]20[facility] -- SYLVIA HERRERA ([id number]) 1945 F Date Time Provider Department 08/16/22 SOY MCCANN [facility] ISACC During your visit today, we recorded [...] mg by mouth three times daily. 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 08-04-2022 Amylase [Catalytic activity/Vol] 155 U/L Critically high 25-115 [facility] Comment on above: Performed By: #### C ABAD MORE AMY ####[facility] [address] [place] [address]Dr. Hardeep Miguel CBC AUTO DIFFon 08-04-2022 BASO # 0.0 103/ul Normal 0.0-0.1 [facility] Comment on above: Performed By: #### C BC ####[facility] [id number] [place] [address]Dr. Hardeep Rivera Basophils/100 WBC (Bld) 0.3 % Normal 0.2-2.0 [facility] Comment on above: Performed By: #### C BC ####[facility] [id number] [place], [place] [address]Dr. Hardeep Rivera EO # 0.1 103/ul Normal 0.0-0.7 [facility] Comment on above: Performed By: #### C BC ####[facility] [id number] [place] [address]Dr. Hardeep Rivera Eosinophils/100 WBC (Bld) 1.2 % Normal 0.9-7.0 [facility] Comment on above: Performed By: #### C BC ####[facility] [id number] [place], [place] [address]Dr. Hardeep Rivera Erythrocyte distribution width (RBC) [Ratio] 12.2 % Normal 11.0-15.0 [facility] Comment on above: Performed By: #### C BC ####[facility] [id number] [place], [place] [address]Dr. Hardeep Rivera Hematocrit (Bld) [Volume fraction] 38.3 % Normal 36.0-48.0 [facility] Comment on above: Performed By: #### C BC ####[facility] [facility] [place] [address] [place], [place] [address]Dr. Hardeep Rivera Hemoglobin (Bld) [Mass/Vol] 12.9 g/dL Normal 12.0-16.0 [facility] [place] Comment on above: Performed By: #### C BC ####[facility] [place] [address] [place] [id number]. Preethiarabella Miguel IG # 0.02 10e3/ul Normal 0.00-0.03 [facility] Comment on above: Performed By: #### C BC ####[facility] [place] W[address]hkvrnx[address] [place] [id number]. Hardeep Rivera IG % 0.3 % Normal 0.0-0.5 [facility] Comment on above: Performed By: #### C BC ####[facility] [place] [address] [place] [address]Dr. Hardeep Rivera LYMPH # 1.1 103/ul Critically low 1.2-3.8 [facility] Comment on above: Performed By: #### C BC ####[facility] [place] [address]tnqfxkc[address] [place] [address]Dr. Hardeep Rivera Lymphocytes/100 WBC (Bld) 16.6 % Critically low 20.5-60.0 [facility] Comment on above: Performed By: #### C BC ####[facility] [place] [address]lzim[address] [place] [address]Dr. Hardeep Rivera MANUAL DIFF REQ NO Normal [facility] Comment on above: Performed By: #### C BC ####[facility] [place] Kpugpxnzyw8[address] [place] [phone]. Hardeep Rivera MCH (RBC) [Entitic mass] 29.7 pg Normal 26.7-34.0 [facility] Comment on above: Performed By: #### C BC ####[facility] [place] [address] [place], [place] [id number]. Preethiarabella Rivera MCHC (RBC) [Mass/Vol] 33.7 g/dL Normal 29.9-35.2 [facility] [place] Comment on above: Performed By: #### C BC ####[facility] [place] Hlrxdmrtgr[address] [place] [phone]. Hardeep Rivera MCV (RBC) [Entitic vol] 88.2 fL Normal 81.0-99.0 [facility] Comment on above: Performed By: #### C BC ####[facility] [place] [address]dvdnxjquh[address] [place] [phone]. Hardeep Rivera MONO # 0.7 103/ul Normal 0.3-0.8 [facility] [place] Comment on above: Performed By: #### C BC ####[facility] [place] Lfvppxmlzq6812 [place] [phone]. Hardeep Rivera Monocytes/100 WBC (Bld) 11.1 % Normal 1.7-12.0 [facility] [place] Comment on above: Performed By: #### C BC ####[facility] [place] Lxkewdlgea[address] [place] [phone]. Hardeep Rivera NEUT # 4.6 103/ul Normal 1.4-6.5 [facility] [place] Comment on above: Performed By: #### C BC ####[facility] [place] Zmkyujvpor[address] [place] [address]Dr. Hardeep Rivera Neutrophils/100 WBC (Bld) 70.5 % Normal 43.0-75.0 [facility] [place] Comment on above: Performed By: #### C BC ####[facility] [place] Dqhyvsaxpw45[address] [place] [address]Dr. Hardeep Rivera Platelet mean volume (Bld) [Entitic vol] 9.4 fL Critically low 9.5-13.5 [facility] [place] Comment on above: Performed By: #### C BC ####[facility] [place] Avnsfvxszu[address] [place] [address]Dr. Hardeep Rivera PLT 203 103/ul Normal 150-450 [facility] [place] Comment on above: Performed By: #### C BC ####[facility] [place] [address] [place], [place] [phone]. Hardeep Rivera RBC 4.34 106/ul Normal 4.20-5.40 [facility] [place] Comment on above: Performed By: #### C BC ####[facility] [place] Qqmdpjefnm[address] [place] [address]Dr. Hardeep Rivera WBC 6.5 103/ul Normal 4.0-11.0 [facility] [place] Comment on above: Performed By: #### C BC ####[facility] [place] [address] [place], [place] [address]Oo. Hardeep Rivera CT ABD/PELVIS WO CONon 08-04 [...] Date: 2022-08-04 20:12 Normal [facility] [place] Covid-19 PCR (CVDTB)on SARS-CoV-2 (COVID-19) RNA ULICES+probe Ql (Unsp spec) Not detected Normal NOT DETECTED [facility] [place] Comment on above: Result Comment: When diagnostic [...] for this test is supported by the [place] of Health and Human Service's declaration that [...] Performed By: #### C VDTBH ####[facility] [place] [address] [place], [place] [address]IaDr. Hardeep Rivera ER URINE PROFILEon 2 Bilirubin Ql (U) Negative Normal NEGATIVE [facility] Comment on above: Performed By: #### E RUR #### [facility] [place] Laboratory [address] [place], [place] [address] Dr. Hardeep Rivera Clarity (U) CLEAR Normal CLEAR [facility] [place] Comment on above: Performed By: #### E RUR #### [facility] [place] Laboratory [address] [place] [address] [address] Hardeep Rivera Color (U) LT. YELLOW Normal YELLOW [facility] [place] Comment on above: Performed By: #### E RUR #### [facility] [place] Laboratory [address] [place] [address] Dr. Hardeep FRANCIS A micrscopic examina tion will be performed if indicated. Normal [facility] [place] Comment on above: Performed By: #### E RUR #### [facility] [place] Laboratory [address] [place] [address] Dr. Hardeep Rivera Glucose Ql (U) Negative Normal NEGATIVE The [facility] Comment on above: Performed By: #### E RUR #### [facility] [place] Laboratory [address] [place] [address] Dr. Hardeep Rivera Hemoglobin Ql (U) Negative Normal NEGATIVE [facility] Comment on above: Performed By: #### E RUR #### [facility] [place] Laboratory [address] [place] [address] Dr. Hardeep Rivera Ketones Ql (U) Negative Normal NEGATIVE [facility] Comment on above: Performed By: #### E RUR #### [facility] [place] Laboratory [address] [place] [address] Dr. Hardeep Rivera LEUKOCYTES Negative Normal NEGATIVE [facility] Comment on above: Performed By: #### E RUR #### [facility] [place] Laboratory [address] [place] [address] Dr. Hardeep Rivera Nitrite Ql (U) Negative Normal NEGATIVE The [facility] Comment on above: Performed By: #### E RUR #### [facility] [place] Laboratory [address] [place] [address] Dr. Hardeep Rivera pH (U) 7.0 [pH] Normal 5-9 [facility] [place] Comment on above: Performed By: #### E RUR #### [facility] [place] Laboratory [address] [place] [address] Dr. Hardeep Rivera SPEC GRAVITY <=1.005 Abnormal 1.005-<=1.0 25 [facility] Comment on above: Performed By: #### E RUR #### [facility] [place] Laboratory [address] [place] [address] [address] Hardeep Rivera UA PROTEIN Negative Normal NEGATIVE/ TRACE [facility] [place] Comment on above: Performed By: #### E RUR #### [facility] [place] Laboratory [address] [place] [address] [address] Hardeep Rivera UR MICRO IND NOT INDICATED Normal [facility] Comment on above: Performed By: #### E RUR #### [facility] [place] Laboratory [address] [place] [address] [address] Hardeep Rivera Urobilinogen Qn (U) 0.2 {Kevon'U}/dL Normal 0.2 - 1. 0 The [facility] [place] Comment on above: Performed By: #### E RUR #### [facility] [place] Laboratory [address] [place] [address] [address] Hardeep Rivera LIPASEon 08-04-2022 Lipase [Catalytic activity/Vol] 1486.0 U/L Critically high 73.0-393.0 [facility] Comment on above: Performed By: #### C MP, LIPA, BRITTNEY ####[facility] [place] Ku[address]zuiho[address] [place] [address]DrLaura Rivera PROF 14(COMP METB)on 022 Albumin [Mass/Vol] 3.6 g/dL Normal 3.4-5.0 The [facility] Comment on above: Performed By: #### C MP, LIPA, BRITTNEY ####[facility] [place] Hlvtqibyha[address] [place] [address]DrLaura Rivera Albumin/Globulin [Mass ratio] 1.3 {ratio} Normal [facility] [place] Comment on above: Performed By: #### C MP, LIPA, BRITTNEY ####[facility] [place] Zhuzyxsqvk0614 [place] [address]DrLaura Rivera ALP [Catalytic activity/Vol] 171 U/L Critically high 46-116 The [facility] [place] Comment on above: Performed By: #### C MP, LIPA, BRITTNEY ####[facility] [place] Xccliwieuj6[address] [place] [address]DrLaura Rivera ALT [Catalytic activity/Vol] 35 U/L Normal 14-59 [facility] Comment on above: Performed By: #### C MP LIPA, BRITTNEY ####[facility] [place] K[address]wjkdryhx39[address] [place] [address]Dr. Hardeep Rivera Anion gap [Moles/Vol] 11.4 mmol/L Normal [facility] Comment on above: Performed By: #### C ARGENIS LIPA, BRITTNEY ####[facility] [place] Aejvhmbuox[address] [place] [address]Dr. Hardeep Rivera AST [Catalytic activity/Vol] 28 U/L Normal 15-37 [facility] Comment on above: Performed By: #### C ARGENIS LIPA, BRITTNEY ####[facility] [place] [address] [place], [place] [address]Dr. Hardeep Rivera Bilirubin [Mass/Vol] 0.7 mg/dL Normal 0.2-1.0 [facility] Comment on above: Performed By: #### C ARGENIS LIPA, BRITTNEY ####[facility] [place] [address] [place], [place] [address]Dr. Hardeep Rivera Calcium [Mass/Vol] 8.4 mg/dL Critically low 8.5-10.1 [facility] Comment on above: Performed By: #### C ARGENIS LIPA, BRITTNEY ####[facility] [place] [address] [place], [place] [address]Dr. Hardeep Rivera Chloride [Moles/Vol] 100 mmol/L Normal 98-107 [facility] [place] Comment on above: Performed By: #### C MP LIPA, BRITTNEY ####[facility] [place] [address] [place], [place] [address]Dr. Hardeep Rivera CO2 [Moles/Vol] 25.6 mmol/L Normal 21.0-32.0 The [facility] Comment on above: Performed By: #### C ARGENIS LIPA, BRITTNEY ####[facility] [place] [address] [place], [place] [address]Dr. Hardeep Rivera Creatinine [Mass/Vol] 1.33 mg/dL Critically high 0.55-1.02 [facility] Comment on above: Performed By: #### C MP LIPA, BRITTNEY ####[facility] [place] Orxwxebfdq[address] [place] [address]Dr. Hardeep Rivera EGFR-AF NIGERIEN 47 mL/min/1.73m2 Critically low >=60 [facility] Comment on above: Performed By: #### C MP LIPA, BRITTNEY ####[facility] [place] Nonaxvumxa[address] [place] [address]Dr. Hardeep Rivera EGFR-NON AF NIGERIEN 39 mL/min/1.73m2 Critically low >=60 [facility] Comment on above: Performed By: #### C MP, LIPA, BRITTNEY ####[facility] [place] Evlxogygos[address] [place] [address]Dr. Hardeep Rivera Globulin (S) [Mass/Vol] 2.7 g/dL Normal [facility] Comment on above: Performed By: #### C MP, LIPA, BRITTNEY ####[facility] [place] Goylqnlvmo[address] [place] [address]Dr. Hardeep Rivera Glucose [Mass/Vol] 108 mg/dL Critically high 74-106 T [facility] Comment on above: Performed By: #### C MP, LIPA, BRITTNEY ####[facility] [place] Qumzvsufwf2586 [place] [address]Dr. Hardeep Rivera Potassium [Moles/Vol] 4.0 mmol/L Normal 3.5-5.1 [facility] Comment on above: Performed By: #### C MP, LIPA, BRITTNEY ####[facility] [place] Co[address]rffjdl[address] [place] [address]Dr. Hardeep Rivera Protein [Mass/Vol] 6.3 g/dL Critically low 6.4-8.2 Th [facility] Comment on above: Performed By: #### C MP, LIPA, BRITTNEY ####[facility] [place] [address] [place], [place] [address]Dr. Hardeep Rivera Sodium [Moles/Vol] 133 mmol/L Critically low 136-145 Th [facility] Comment on above: Performed By: #### C MP, LIPA, BRITTNEY ####[facility] [place] Xnuvhuklba[address] [place] [address]Dr. Hardeep Rivera Urea nitrogen [Mass/Vol] 23.0 mg/dL Critically high 7.0-18.0 [facility] Comment on above: Performed By: #### C ABAD MORE AMY ####[facility] [place] [address]hl[address] [place] [address]Dr. Hardeep Rivera Urea nitrogen/Creatinine [Mass ratio] 17.3 mg/mg Normal [facility] Comment on above: Performed By: #### C ABAD MORE AMY ####[facility] [place] Ofjedbfrcj[address] [place] [address]Dr. Hardeep Rivera Pre-Certification Formon Pre-Certification Form [id number]:12 [id number] Normal [facility] BOX TEST SENT OUTon 08-02-20 22 SENT TO REF LAB 08/02/2022 Normal [facility] Comment on above: Performed By: #### Deedee PINON #### [facility] [place] Laboratory [address] [place] [address] Dr. Hardeep Rivera CBC AUTO DIFFon 08-02-2022 BASO # 0.0 103/ul Normal 0.0-0.1 [facility] Comment on above: Performed By: #### RANDALL OLSON #### [facility] [place] Laboratory [address] [place] [address] Dr. Hardeep Rivera Basophils/100 WBC (Bld) 0.3 % Normal 0.2-2.0 [facility] Comment on above: Performed By: #### RANDALL OLSON #### [facility] [place] Laboratory [address] [place] [address] Dr. Hardeep Rivera EO # 0.1 103/ul Normal 0.0-0.7 [facility] Comment on above: Performed By: #### RANDALL OLSON #### [facility] [place] Laboratory [address] [place] [address] Dr. Hardeep Rivera Eosinophils/100 WBC (Bld) 1.4 % Normal 0.9-7.0 [facility] Comment on above: Performed By: #### RANDALL OLSON #### [facility] [place] Laboratory [address] [place] [address] Dr. Hardeep Rivera Erythrocyte distribution width (RBC) [Ratio] 12.2 % Normal 11.0-15.0 [facility] Comment on above: Performed By: #### HARI OLSONRO #### [facility] [place] Laboratory [address] [place] [address] Dr. Hardeep Rivera Hematocrit (Bld) [Volume fraction] 41.2 % Normal 36.0-48.0 [facility] Comment on above: Performed By: #### Deedee PINON UMICRO #### [facility] [place] Laboratory [address] [place] [address] Dr. Hardeep Rivera Hemoglobin (Bld) [Mass/Vol] 13.6 g/dL Normal 12.0-16.0 [facility] Comment on above: Performed By: #### Deedee PINON UMICRO #### [facility] [place] Laboratory [address] [place] [address] Dr. Hardeep Rivera IG # 0.02 10e3/ul Normal 0.00-0.03 [facility] Comment on above: Performed By: #### Deedee PINON UMICRO #### [facility] [place] Laboratory [address] [place] [address] Dr. Hardeep Rivera IG % 0.3 % Normal 0.0-0.5 [facility] Comment on above: Performed By: #### Deedee PINON UMICRO #### [facility] [place] Laboratory [address] [place] [address] Dr. Hardeep Rivera LYMPH # 0.6 103/ul Critically low 1.2-3.8 The [facility] Comment on above: Performed By: #### Deedee PINON UMICRO #### [facility] [place] Laboratory [address] [place] [address] Dr. Hardeep Rivera Lymphocytes/100 WBC (Bld) 8.9 % Critically low 20.5-60.0 [facility] Comment on above: Performed By: #### Deedee PINON, UMICRO #### [facility] [place] Laboratory [address] [place] [address] Dr. Hardeep Rivera MANUAL DIFF REQ NO Normal [facility] Comment on above: Performed By: #### HARI OLSONRO #### [facility] [place] Laboratory [address] [place] [address] Dr. Hardeep Rivera MCH (RBC) [Entitic mass] 29.6 pg Normal 26.7-34.0 [facility] Comment on above: Performed By: #### HARI OLSONRO #### [facility] [place] Laboratory [address] [place] [address] Dr. Hardeep Rivera MCHC (RBC) [Mass/Vol] 33.0 g/dL Normal 29.9-35.2 [facility] [place] Comment on above: Performed By: #### HARI OLSONRO #### [facility] [place] Laboratory [address] [place] [address] Dr. Hardeep Rivera MCV (RBC) [Entitic vol] 89.8 fL Normal 81.0-99.0 [facility] Comment on above: Performed By: #### HARI OLSONRO #### [facility] [place] Laboratory [address] [place] [address] Dr. Hardeep Rivera MONO # 0.7 103/ul Normal 0.3-0.8 [facility] [place] Comment on above: Performed By: #### HARI OLSONRO #### [facility] [place] Laboratory [address] [place] [address] Dr. Hardeep Rivera Monocytes/100 WBC (Bld) 11.6 % Normal 1.7-12.0 [facility] [place] Comment on above: Performed By: #### HARI OLSONRO #### [facility] [place] Laboratory [address] [place] [address] Dr. Hardeep Rivera NEUT # 5.0 103/ul Normal 1.4-6.5 [facility] [place] Comment on above: Performed By: #### HARI OLSONRO #### [facility] [place] Laboratory [address] [place] [address] Dr. Hardeep Rivera Neutrophils/100 WBC (Bld) 77.5 % Critically high 43.0-75.0 [facility] Comment on above: Performed By: #### HARI OLSONRO #### [facility] [place] Laboratory [address] [place] [address] [address] Hardeep Rivera Platelet mean volume (Bld) [Entitic vol] 9.4 fL Critically low 9.5-13.5 [facility] Comment on above: Performed By: #### Deedee PINON, HARIRO #### [facility] [place] Laboratory [address] [place], [place] [address] Dr. Hardeep Rivera PLT 200 103/ul Normal 150-450 The [facility] [place] Comment on above: Performed By: #### Deedee PINON, HARIRO #### [facility] [place] Laboratory [address] [place] [address] [address] Hardeep Rivera RBC 4.59 106/ul Normal 4.20-5.40 [facility] [place] Comment on above: Performed By: #### Deedee PINON, HARIRO #### [facility] [place] Laboratory [address] [place] [address] [address] Hardeep Rivera WBC 6.4 103/ul Normal 4.0-11.0 [facility] [place] Comment on above: Performed By: #### Deedee PINON, BENNETTRO #### [facility] [place] Laboratory [address] [place] [address] [address] Hardeep Clark 08-02-2022 CNPN Telephone ([facility]) -- SYLVIA HERRERA ([id number]) 1945 F Date Time Provider Department 08/02/22 LOIDA MATHIAS [facility] During your visit today, we recorded the following information about you: Linden Faustina 08/02/2022 1:42 PM Signed Patient had labs drawn 08/02/22, uploaded to scanned docs. Loida Mathias APRN.TAFFY CANDY MAKER 08/07/2022 10:27 AM Signed Received outside labs drawn 08/02 -- FK 4.7 Cr 1.4 BUN 21 K 3.9 FBS 119 WBC 6400 Hgb 13.6 Hct 41 Plts 200 My chart message sent to patient. Advised no changes. Asked that she keep us posted re: if she will be transferring her care. Loida Mathias APRN.TAFFY CANDY MAKER August 07, 2022 10:27 AM Allergies As [...] mg by mouth three times daily. - zdpzth-mrmapxna-wahhknw (CREON) 24,000-76,000 -120,000 unit cpDR Take 3 [...] Status:Closed by LINDEN WEEMS on 08/02/22 Normal [facility] PROF CHEM 8 (BAS METB)on Anion gap [Moles/Vol] 12.2 mmol/L Normal [facility] Comment on above: Performed By: #### RANDALL OLSON #### [facility] [place] Laboratory [address] [place] [address] [address] Hardeep Rivera Calcium [Mass/Vol] 8.6 mg/dL Normal 8.5-10.1 The [facility] Comment on above: Performed By: #### RANDALL OLSON #### [facility] [place] Laboratory [address] [place] [address] [address] Hardeep Rivera Chloride [Moles/Vol] 98 mmol/L Normal 98-107 [facility] Comment on above: Performed By: #### RANDALL OLSON #### [facility] [place] Laboratory [address] [place] [address] [address] Hardeep Rivera CO2 [Moles/Vol] 27.7 mmol/L Normal 21.0-32.0 [facility] Comment on above: Performed By: #### AKSHAT OLSONICRO #### [facility] [place] Laboratory [address] [place] [address] [address] Hardeep Rivera Creatinine [Mass/Vol] 1.42 mg/dL Critically high 0.55-1.02 [facility] Comment on above: Performed By: #### Deedee PINON, UMICRO #### [facility] [place] Laboratory [address] [place] [address] [address] Hardeep Rivera EGFR-AF NIGERIEN 43 mL/min/1.73m2 Critically low >=60 [facility] Comment on above: Performed By: #### Deedee PINON UMICRO #### [facility] [place] Laboratory [address] [place] [address] [address] Hardeep Rivera EGFR-NON AF NIGERIEN 36 mL/min/1.73m2 Critically low >=60 [facility] Comment on above: Performed By: #### Deedee PINON UMICRO #### [facility] [place] Laboratory [address] [place] [address] [address] Hardeep Rivera Glucose [Mass/Vol] 119 mg/dL Critically high 74-106 T [facility] Comment on above: Performed By: #### Deedee PINON, UMICRO #### [facility] [facility] [address] [address] [address] Hardeep Rivera Potassium [Moles/Vol] 3.9 mmol/L Normal 3.5-5.1 [facility] Comment on above: Performed By: #### Deedee PINON, UMICRO #### [facility] [address] [address] [address] Hardeep Rivera Sodium [Moles/Vol] 134 mmol/L Critically low 136-145 [facility] Comment on above: Performed By: #### Deedee PINON, UMICRO #### [facility] [address] [address] [address] Hardeep Rivera Urea nitrogen [Mass/Vol] 21.0 mg/dL Critically high 7.0-18.0 [facility] Comment on above: Performed By: #### E RANDALL PINON #### [facility] [address] [place], [place] [address] Dr. Hardeep Rivera Urea nitrogen/Creatinine [Mass ratio] 14.8 mg/mg Normal [facility] Comment on above: Performed By: #### E RANDALL PINON #### [facility] [id number] Hardeep Rivera Tacrolimus Bld-ncon 2021 Tacrolimus (Bld) [Mass/Vol] 4.7 ng/mL Low 5.0-20.0 [facility] Comment on above: Order Comment: Speci men [...] Test performed by chemiluminescent immunoassay using [employer] Manager. Performed By: #### 1 1253-2 ####[facility] LABCLIA [id number] [place] [address] [place] Giardia, Direct, EIAon 07-23 G. lamblia Ag IA Ql (Stl) Negative Invalid Interpretation Code Negative [facility] Comment on above: Result Comment: Perf ormed at: [facility] [id number] [place], [place] [id number] PhD Sommer Davis Performed By: #### 4 [id number], [id number], [id number] ####[facility] [address] [place] [address] O & P EXAM, ROUTINE, REFLEXo n 07-23-2022 Ova and parasites identified Concentration Nom (Stl) Comment Invalid Interpretation Code [facility] Comment on above: Result Comment: No o va, cysts, or parasites seen. One negative specimen does not rule out the possibility of a parasitic infection. Performed at: [address] [id number] PhD Sommer Davis Performed By: #### 4 [id number] ####[facility] [address] [place] [address] O & P Exam, Routineon 2021 Ova and parasites identified LM Nom (Unsp spec) Final report Invalid Interpretation Code [facility] Comment on above: Result Comment: Thes e results were obtained using wet preparation(s) and trichrome stained smear. This test does not include testing for Cryptosporidium parvum, Cyclospora, or Microsporidia. Performed at: [address] [id number] PhD Sommer Davis Performed By: #### 4 [id number] ####[address] [place] [address] Consent for Procedure/Surger yon 07-19-2022 Consent for Procedure/Surgery [id number]:12 [id number] Normal [facility] CMV IgMon 07-18-2022 CMV IgM IA Qn <30.0 Invalid Interpretation Code 0.0-29.9 [facility] Comment on above: Result Comment: Nega tive <30.0 Equivocal 30.0 - 34.9 Positive >34.9 A positive result is generally indicative of acute infection, reactivation or persistent IgM production. Performed at: [address] [id number] PhD Sommer Davis Performed By: #### 1 [id number] ####[facility] [address] [place] [address] Coding Summary.on 07-18-2022 Coding Summary. CD:[id number] Gh0bWw +PGhlYWQ+OM3BPZEuA09jjEGwe F2KM1vVMN4MQTDAWEMRBB4ZEK8 kuFG4GKgbO0YbsqYb PyuqiMLwAM99WOe4MRK3aEjsWS uzoE5gdNOmG6f0FaFaXB26kD26 FLrqLHKmIpK0EpCkdkslpLVh P0fiHqGztPPiMnw+PHRhYmxlIH svWOKtUVmdQYUfItMmnLskYN4v Fc2rYMIhEKVlcDijiCPzYlEt k3agPURqTRhjNL7evGmtO7FoqX N5TCDji0h0Th17gBW+PHRkIHN0 iCpdWZabx049CeBgp6jnXEO9 sIYmLJjkSCC5I78pj9F7KTApEB ZrIIN6wJB1wP7voNpgjwnbI9Ee mRLtGxO1EDL9oWVloY2cxAhl fheraN8sTgz+I85QLP8DLCTBTG 3SRga9P3LwHjgkrCA+EJ83ITAf GZ96fMZaiNKpz6wggMx1HxTk PHMrXOO3rCsdZHgtf4WyYJVuV6 7hhJCxu1A4FZPvkAtsvKXtFmEu lJC4cA4uYDjoubkzk9fujodk Dhssd1udxv53xF05H09cKQmbXQ JiVFK8QLGfGTPkrNlbzz1unY9x Ii8+NMhrx9ruj2warOt6PdHa EWZshxDroKwhHSY0d4KmWh20A6 YuzKplz7FfKtz7nj74aAQdp5I4 hRY8ICzmEBImjN2oXNtiOwH4 TFLaFsQueB49zBRvYWomRo3seX kwyTmlJX3xNTYvzvokNJKpkM3e SSUgwOSsfAieBU8bTJRuinre d134UuNpIZW3THDvfVBvS6WzaE 3vJqMaAGFiSFQsS8XbkOBbCHbc A724MHifQoU3SRXbfzEkJ5Vq PRZpiCrpUkQ2a8E3Wo4Du5Taay uhLKO1FWjeSAH3JxN3NrPvDeO3 J0AjUlb2CNSopKstKM7pL4Wm YZGhtlzkkarafLB3YXVwRRSgwP 50vSDlWYplPj1pj6O0x657HQXq YSVgoO39Ik1yyCroYJVtnSFL lD7abdwap8tskngjVqFoTPSbVG r8RZn0NZFclBjvIxJpKIM8DpW8 VOK5rIRdyO0xeVknwocoiR8c Oyc+Z85jkD9aHRA1IOT2hvkpHR UiuxYnYJ31LE75N0XwXzehxSDf bGU+AGRfecXeqNwsEY1uQpRv l9mmv3FnJAitN1QwASEvCJqpKr j7HSSsWSO7jQD3aW6jYARrJKav y5K5fLW8J1QewhSchd7jd7jb WSPwMUxxG89qeTUlt0M3ZOQyhR B5ZUNwzJjfFcPjvX67Bwe+PGNv pDots5QcNvgxe0mjz8xmsAe5 TxNtHXXoroWpeBhpEZQ4q5GoNr 11Q06dRSluIFLyAQNeGTNyJODj gWumdo3dkF1jEb3+PGNvbCB3 lPH4cT9hAVXbPaI1LRmyX590Ls TiqGOiMztkk8zqn3tgnVx0HcCs MTMjzbNnkVgbMAC1c0XrUi71 E82mEVztBRNkJUQwCKRwPOHmuW urfw9ojZ1gMi5+EE4uu3qmhq00 xH77vMB+BSWhBMR6yAjhNDmz ILPbmF0gFNrzZmD0YBTuHeEidW 47pLKrSAutVp3hpXjmnJhzXH1d JQZomomko063AbHpw7hcESQk xLYyMEnmHPV9A46wo5U7VISkTC QcPVA5iWI5cI5ywGxucuyxaGRt cPwwkgNikVpdHHxhUUwdB358 IHRvcDsnPlBhdGllbnQgTmFtZT r6O8MeOyb4XOHcxCytVY7pkNRl KMhaWr6lfYbgvKarRY6lCXPo zyupp527RxWgh6ssDNMxtXMyIX hbSKC1Q77mb7C1VZYcIRRxPIT2 pRR4jX0knTrljqvvrQTitNgh kqDwyKfiSPokWIheB381VLDogT aeUvNupuGbENSwaCM3UB70KY69 vGTco7B2aHA4C9PpGGDbrqgl snedeIN8QIVxGHUrfY19Sh3hrN igVz0bSDDaZBN1JUHvyKKaX8Gc xZ9lLeAkXMUhVRGdZ4BwwURr SWoeB905PCuhDzK6WCBzsgScM6 AbOARxsCraWaD8q9G0Oj2FP1W8 AW52KR49vOCxm5A1jXX4F0Hi TRVjavofruzsaRV8OVJlEBVnlU 18Ff1aaEhcGl0tGZBpOYY0HDPs lAHzY8PfqF6kFrUpBIThPKIq D5WzhJIeAQxlF359EVacMhD9WE NpazNcD0DvBMCktUehXnL6a4K7 Oq4UVKn9DA27OI56gMMkt4R6 dED5E9FqWLYlbmqboneqdMW5FS YkQCXmwG93Is8mtXlkId9eOTUm XSA7MQSdoOBkM6XlnD4zJbWy HYVeFAUlO6GzvNAeLRgzH052SK pwMuT5TXXucfTlQ4SyCLJybDri DlC5s5M0Wj2XYQBzTL36PHY0 iAH1HY17GO24W5DhKsiwdCKmwZ U+PHRhYmxlIHdpZHRoPScxMDAl DqDhrAlbLU8oAp0xUMNeFKGp pYxzlIEoMvApl2wqZTYoZTfmJN 7iaKelA9HjwQF6IAJyn4j4Oc29 B29aX6HldXQ+EAHeaYM9mKL0 qT8cUiNaYxH2GEyeX930JcByxY KzVwnlr7nsz3yruQa0SwE7DYVx uzCfeMlzTBJ5t6ApPy94N86b IHdpZHRoPSIxNSUiIHZhbGlnbj 6yrS7kSb9+LINzkCJ7jIT5cM3y UqSgJqN1UWctB791CvLkgXDs Kfbpd0azm1flgSf6AbXzLYDahk KbeLmuYGJ6u1UuLg51H9ElfKbt c0WdFsb5mz38nKNqk9L4pFK7 U3HjPRQwblrneYWhcVwnCJ8nGY KlylduHYGgzW1vEBEjO0l0ZuVo TqZ7IXjyI2BgbdB8LYZweDVu JUyxYGU2X79cn6L7AFWoWFKyTU G6cZQ4iJ2ohCrezabrqYBlsAnz ckThiCxhXBycCBlvI469NCXb aKkfABBacW1lVSCbkLOuvRdiVK 4wNTBpbjsnPlBFTkNFLCBISUxE VAMCTH66TY85eGFls6G4oKF3 N2YhGNJxdsftlsxqiRF3LYBfQD AcgF73gSWhTJptXu8tz7K9f320 YUNrYPGodJ53Kb1ylHfmPQKv yNKQnQ6llkbye6jjfdnuLhPeDT UaPXa6VQo0MTHgqRmyLrSuKRI5 TvY6TDX7hGAmvO2drHdcoxvh sG5oHky+BPXmUjKgSSi0PKjhoW Q+ILHtSRQ2jMpbGAagBSXqqV2y VGUrJ1k2WzBgFjX9FEghA3Wj JJBhplmtRt80cX6uDnTtKxB2WM zbW9HpgcX3RHIafXSlKHgvEDN9 Y80lc6L9NYXiWAGdQFP4fBZ8 aF5qnKxqjwcliUEnkXvslzSjnK pkBMfzCDfyN083UZPgpPchXvw5 MKluJXBeSU83DB67hIUga9J1 mOZ4U3NvZTIcmhhwalnasLC4IB HzXKAxkE61yLQoYDeoHt6hm2L7 r197GSGcMJGtyI34Ex7hkMbj MNXbhAKOrJ9jvncyj5okmiyhKp BpYQQkJQd1JOb7AHLwrCghOlMe EVC7GrY8TMN2pAGllT7azDwy ofaykA2kYby+VtYoNVknAR11YE 32gWYzf9F2qJH5J4OgYBUwkdkj ktkozNL5PJLkIMVbgK83bLIe FWtuTw9xf7Q8d545JBTaPYDzgC 55Yw5jkZmsSLAcbAMRwH0ltqvf f2urocvpIsFqGDJsXYn7BPh7 ZYBobCsvBsLcRXU5OiL2ATF3fZ IuiV3uiWpqwakshE9nAua+T3V0 gLN8jYVnjJxlpAC+FJ05fc82 W1GlBrepWga3XKGcZUV3dEI5jN 6nLGBnTAfyd8O2pJS3R8ZrzhZj jp6xq2vgJNYqIEfcY83vjPLg g8F6MFJvcDU1EKDvyMiiTsSqoT 93Oyc+KTShtGbap5SfImbln4mz u0uqdQf7OoXqGHKrztEjhGjl BEN3o4ZtKq46D02wMDfaQUBdQB IsTHScLXIxcOrnhs8cbS2eVk7+ ZCPhsIS9hKK7aB5mMjPhCoU6 ZLxoU103CtRjeEBnAcnpe0igp7 ghdYf6SnFjHASsctLbpDgwMKF3 j1YpOa72O7StiCxwg9ZzTku9 cv10wPYds4I6vLM2O2KsQHRwfy ouyXBatKvlZV7qYABfythwFROb fD6sXOIcK3a2VaNoHaI1CWdv H1JklkM5JELkcJBaNXZekOLMsX 3ltvkpe3nbsejzNxWnQPRtCGz7 CJv1ZBKuxHjuWyNpDCV9GpW3 OZH9mDMuoT8dtFlgbsiufG1zSz c+THi7l6wjhFWoYO4vfQE8OL90 HF35eQXdk0Y0bVI2B6NwMUXg wjpezlapiSV6IFYiPNEtkN43Es 6pwLhkHi0uOICtZEK0WPSlzDQs E7SjeN7nIcGyGJGmRUFnZ4Es mOEtSAiqW837FBjpHbS0OKUdgy QtY7WuPEXgcIkiCxQ7n4V7Rs4H HY10OW13TX65tZOxf4O6kJT7 V5ZvUYXdjxjxsjefeIH1WWQjKR WtfZ20Gz2fgXweRi9wTQHzAVI7 QWBztLAjT4RrwC2fWqEnOSIc TKMoM6OwnVBmVUuwF448KKgtMq V2JCVdxzTzS3DwGFUbyUogOcM7 o1B1Fm8BXy92ZY63ZD75sYOr k2X5eQJ9G4VpCOWysmqjmadcmW B1FTHxSPUfaY43Xk3vqBbrTf3e KVHsWII1BOXkbEIgQ1SfkT9r FqDzDPZoYGHvB0NhnILtNJhwL0 79CPjoEnW6VPNzysEwD7HwBBJp bGgsRjI8b1E2Uf2XEVvrskg4 B9JzHwkrtSF+BN17DNPuUE03lW UkyIXja6hbhSf7VpQlUECcFBL1 pTlgMBvax0GbTFZhI94aqFSv c2U6 (more content not included)... Normal [facility] Coding Summary. CD:[id number] Gh0bWw +PGhlYWQ+GZ6XSECyC28otSVmu L2JC3bOIV6KSMRUGHTSMM0HSQ1 tbMH0VLheM2UqceVi OijpxGQsYK17FEa8ZEH4iJpsHH bseM2ygSRcT2k8TkKfMC11eK94 XZnvJGUwJkO3CrNfvbpmrIWd U1dhLvYvfQBuMna+PHRhYmxlIH biAKGrOPvxNUNhRgMxnJlgOE7a Og0rXDUgIFVbrVdjtBNnIaAk p5ozGWYtNBvpAI5usGwpG0YwmR M4ZMFfw8i0Fk37bMJ+PHRkIHN0 uOcuBJhmv426WbYjy5dsPEE3 sIUiJMztKUH2U77wr6V8EAInDD OcNQJ1dCC6fE5kmOdkwjkrM0Td hPEuDyW7SHU9pVSydW5laFoy khzhbV5pEav+J04ABC7QLLDDGM 2WKtv1W8BlPyotrDT+DM68GPWo JH58xPQlxWAry8tnpCv2ThKh NJXqCSQ2xJjjFKveh6LwVXXvZ3 9niNAjz2T4NYZchYiapQRxPpRa wDW3qK2jTNbaoroqr7zbgfou Pmcmw4urqq22aB25J88vHEtjLS UhKQN1PJDeFIDctHqyri4faC7x Ii8+ZGnvw9yia5cwsCk5JmMl DUYtbrTweCepVII6b4OkJb82M7 XabCwfa8IbXyo7sy06tRKdf7Q9 cST8BLvxWYAehK2nCHuuRkM4 UHRiHxDxrC49vYQeRKcxKw4pfM txnGkpQG2tUILljglrWNJmyT8x WIQcyWJqiFlvRJ9cSMQadoof k931HlNmZLU0EYEljUTaK0KlvJ 4fWiBmFKCdJQGsD8SrpKMpSZav M129QAqdZbJ5RCGsndGhH4Xy AJKwiUvnXvT1z1M4Ad9Xh7Ovbk epFWH5TVqvYAD2UlX4HwEvRdZ8 K5VoCwl5TVKyiUitTE7hD6Si QTAhoeyxypsybYV7LHJuGTAjpV 61aSLbPNemQy6qb7E8e482CTCo CWJuzF24Ay5nuDojHHQtjNSS uR4kvgwpr4ukskygFoTkQSZpKF o8BBu8CYFbjEtrHkXuXNM3MlI6 CFG9hXOnbR7xbCpiyfelqR0g Oyc+B26ndR8oHCQ6GLT5bpakXQ UhjgMtNQ23VJ22Z7EaHdlmjCDm bGU+ZPWfzdQriUgsJE1rEkGv y1oqt3YeZBauY5TfTLPeDZmdQh x3FTGtZEQ4vKG4eR2cLFIaZZrt b1Z4bLH7W6CiwcYnoq9yk5lz YAPgYNllE18nhDZlj4L3QPXypJ R9KJPfhEbkJvObkH00Jqz+PGNv gMuyd7VrJiqzw6hus2czrAq1 FgImRLViovYmrZxyLAD6i1BuCy 39X05vELwsDPJwJLZrXMCwTVOw fApxlb8uxV5kNk3+PGNvbCB3 sYA2oR4cVJDzAyR2YEkdB973Sd ZneFPeIavqp4mbh9dmkJl5FwXr PTWqiaWhvExnJGP5q0TyDh82 Z06jTMweFPMaIYNjSWQuCMItaV zrka7bqK5eXc3+OH2wu7nylr38 nY33yFF+AQJuPME1dAiaTAez VAUrxV5sHRfvZsJ5LNFzJcHmaX 92uPBtKLbrEy7bbFcskFrcOS1s CCVhoakdy987QfLaz9vaTPWb hFVpZLimGUU8V54nw6X8YGBmAM PeATP0eAP4hQ4anXozxtbtlHYf dJeguzJeiDuzCPqfPPmzC667 IHRvcDsnPlBhdGllbnQgTmFtZT h2K4NeHqd4OAVpfBvrRM2vnDVv LHwlJn2mkAhmgZxhYG2vZAJc ntgqd124VmRwg9euJVGntYZsFQ frGJI3L29uv4X8SKZtJJHrXCQ4 hDC0bT1mdCrfqtggiITzzChg pyIekVinTQcyBXzrP590OLWwgB whWsAnoyMjYAOkeDA0SK88UY34 fPUql2F0rMV7F2DgXIWtcfmx tbuaxQI0YOHjRCCtvM87Wp6utQ cyAx4iARJsMHJ4CARaiOHpY5Mi nR6bHaRmHGGjXNVlA7AgbNVr IAxnX193XGfvYhU7VAJywlGbB3 KvQTTkgIhyUrF9y5V8Pb8IT1E0 TH90ED03nUWsh5U1rYL9S8Cz VZUrcllsyoiytUZ7OVCqNPJflY 56Rd5jcYgeAx7tKGLwBZX6VPQs rFBeF5LkvB9lRoRjKQXbEJXl F9UbaZRaIQtuZ922AVqoBbY2ZF XdooQuH8KyGRKmnGltEuJ3k8Y9 Lp7RZIj8QO32UE30rHXyf0M6 pHM2B7TxHAJgmrywdgoplLM7OQ NrECOyiN23Jy5srNnwMb5xVMAr AIM6RXRiuIBbV9MypP0qHgXq LVQgIXAnX3QdsZDhITccU788AZ hdSaI0TTMvirEaU9VkEDNyfQxu KtC6g8L8Up6JEGGaGK70MCJ3 sLR9VJ55FE88E3HbWiemqYUmeU U+PHRhYmxlIHdpZHRoPScxMDAl AkYkiRdpHX6oGs2eZBWzPKYr gXvxqIToRxVsy5qbITWyMNkcDD 5ioOaxV3XdsHL7SYYxl3m2Hj94 Y28wE8PgdBS+NEQcaPT6dWE2 kI5cZrNoCrR7VEgmQ107RsFrqW LuYohbo1vjd0pikOf3UxB1AJTd neLpzUjwIEX5y6WzHl53A97o IHdpZHRoPSIxNSUiIHZhbGlnbj 5dtH9bBp8+UJXbwTC3cAE1sB8y VkNyTwK1KVxnR406YlNeaBAp Atngh4kmr5gtyHb3CnMyDEJrvv OktZnnWNG5m1VbAw21Q9CvpMgv d9RlEew3ab17mIVky4A0eDE2 T8VkXUJliidvbWHdxCzwFT4sNK EvmhfwYHUllG9bVRQoW1d4FtKj QxL5FMxhW0ScjzB3IYViyOAc ZLqqGPS2J40qm8H0BNBvOQObFM L2jZF5eN1sqXvalkqeaUEwmJee flVziIsqJFmtRYasC297NTOt lSqzMAKwzO6tMELdeXAdrNtwZR 4wNTBpbjsnPlBFTkNFLCBISUxE ZBWNGM28TZ05wIZtm0A4gTV3 U6CpAMTrwlimbsbcfNU2ELRzTW XkuB32vTGoJJkiRe0kb5N6w330 FSWsCQHyeG75Ss3wuLroHRPv wDGLvY3sqbbxk3salutwQlBfGJ MnAJr9FNn0THFxoVvbNyHtJSO7 HeF3ZQC9nFWduJ7nhShsbyvi kA5kWjg+NRZyWhEdNLy8VDqndG Q+QYUyYGO1zShkAPaaVLQrzS8o UERvF3d7WfCaNtJ2OJfqH0Zi IZFobfmvRv01bT3rSfTcAdS9BA vwL7ArkyP3HSQxfIJqEUzcJJA6 M46di4Q9ECAqEKZsKTC5jSO8 tV8beRqwkxkfdUKbqLzqioOsgZ slXBxjYHggT647WFFupZegIim1 BEihOCXwFZ43OT57zLFun2B9 fDM7G3WfQUTiwpploxjokHN5VD DdIPRaiO99vLYhYTkoRu6ou4K2 k638LGZmRIRwbP47Of2xoDbu FTOeoJQLhF8uhylwh7bfaiyhBx GbTRJvTXm2RJp7XSPcpKmlVcKb IKD7TrL0KHW1kANpxK2vlNuo istcqZ6zWfy+TkCdMRomNP21CT 85gPNao0H4cIO3X7JbYMSolfhd gludtMU8VETgAHStcF71tWYf DOcfZj3ku6X8n332EBYeKOLajY 98Xz2nrSniBPWadYRPoQ7deqzh r2mvvbsdTkTeRELwUGh1RXa4 ZSZccXjuOxSyJVX0EuN2WET8vH JlgZ2rpCmszobbbT6yEnp+TGFi CFHug1Kfi1ShVK99VV39M1Sb PjwvdGFibGU+PHRhYmxlIHdpZH LzIBslWBWtVjEloWnhGG9mKo1q LXYwJCJodCtdsOAtQmMeq7vx SQNzDNatQT2urEkuQ2PcxBS5AG Ewv9w8Xk29J13hV0BymMK+PGNv iCX3pDI5sI2kYfYtUmL3WIks Y850OfBieITfJnzkn1uzl4ywuK z2HqIwNNXfrqZswGklUCF1j1Xk Tx60U22dIQviCJQtWSWzDMIu XMJofFacdb1ibE6kZw8+PGNvbC Z6aUU2lW4fUuSvFgY9SFrwE993 TsRrwUEyVkycU59sS7PevKR+ OEHgVlz7ZUBtzDheGP1brPAyGH cpGv6fUJG2ZmCrVsHkUYjwX3Ob DPJqytjnpcaesXB4QOEePHLf bZ28Wh9iyOzhPp1qBSCkXRZ8SA TdeYShO3OrfJ8qUpCtBVKwUGQj H6SyoNTtHOtnM610NFcrHlB9 GVZcoaGmQ1QqLLTkePylGxU3s5 E1Ip8XoLalxMWyBL3yIuSyRQw5 A1IrYax8UPSmeGqkTW7yfEIw SJunIt5kaAacpWeoJR5xCAZwzs lnh724UkCql4ywKALpeRWqTFnu HTK4U75ns1P8ROPvFPDqAOK8 mLW1bE4rcMgwxqwhiCFhlJmeng KlcLzqNTkaFUadS946KLCjfHvn NcRNUtc4J8YwSdr9SMHtgFyz AI2ioXQkDIqaPh9ioEavbSoeET 2vQNIzesptw710PsXdb0ooWNFo dDEeHTcsHDZ8U06kl7J2MWBo LPWvSPD7lPV9vY3snVuyemwffS RhxNuhbyYptHloCGzyHPllN854 BZEfvNkhVy2MAcx3X1ShUev2 LBKbqJnxDY3anULbFNtrHi8eoM mvnFlrPA6xNCXhafobk768FnId v9nnNQJrxZVeWLcwODO0P55p u4O4HAOjURJrHVP5fAP7wY8jaZ lnbjogbGVmdDsgdmVydGljYWwt XPqjS637QSNlkGemEbDxxYAb OjwvdGQ+RM79wv85H3GmRsknYl i6DUDgMLD5wBX4pH6fQIXnSMuf l1R4dVP3M4TknwNdlh8mu6vn YXBz (more content not included)... Normal [facility] Enteric Panel by PCRon 07-18 C. coli+jejuni+upsalien sis DNA ULICES+non-probe Ql (Stl) Not detected Normal [facility] Comment on above: Result Comment: Test ing was performed utilizing reverse director of investigations (RT), polymerase chain reaction (PCR), and array [...] nulcleic acid test. Performed By: #### 4 [id number], [id number], [id number], [id number], [id number], [id number] ####[facility] [address] [place] [address] E. coli stx1+stx2 genes ULICES+non-probe Ql (Stl) Negative Normal [facility] Comment on above: Performed By: #### 4 [id number], [id number], [id number], [id number], [id number], [id number] ####[facility] [address] [place] [address] Enteric Panel by PCR Negative Normal [facility] Enteric Panel Intrl QC Pass Normal [facility] Comment on above: Result Comment: Test ing was performed utilizing reverse director of investigations (RT), polymerase chain reaction (PCR), and array [...] 1 and 2. Performed By: #### 4 [id number], [id number], [id number], [id number], [id number], [id number] ####[facility] [address] [place] [address] Norovirus genogroup I+II RNA ULICES+non-probe Ql (Stl) Detected Abnormal [facility] Comment on above: Result Comment: Resu lts Called To [facility] for Dr. Jama By [facility] And Read Back For Confirmation On 07/18/2022 08:49:23 EDT. Performed By: #### 4 [id number], [id number], [id number], [id number], [id number], [id number] ####[facility] [address] [place] [address] Rotavirus A RNA ULICES+non-probe Ql (Stl) Not detected Normal [facility] Comment on above: Performed By: #### 4 [id number], [id number], [id number], [id number], [id number], [id number] ####[facility] [address] [place] [address] S. enterica+bongori DNA ULICES+non-probe Ql (Stl) Not detected Normal [facility] Comment on above: Result Comment: This test result should be correlated with clinical presentations and medical history by a healthcare provider to determine its clinical significance. Performed By: #### 4 [id number], [id number], [id number], [id number], [id number], [id number] ####[facility] [address] [place] [address] Shigella species+EIEC invasion plasmid antigen H ipaH gene ULICES+non-probe Ql (Stl) Not detected Normal [facility] Comment on above: Performed By: #### 4 [id number], [id number], 58327501, [id number], [id number], [id number] ####[facility] [address] [place] [address] V. cholerae+parahaemoly ticus+vulnificus DNA ULICES+non-probe Ql (Stl) Not detected Normal [facility] Comment on above: Performed By: #### 4 [id number], 26592654, [id number], [id number], [id number], [id number] ####[facility] [address] [place] [address] Y. enterocolitica DNA ULICES+non-probe Ql (Stl) Not detected Normal [facility] Comment on above: Performed By: #### 4 [id number], [id number], 93900536, [id number], [id number], [id number] ####[facility] [address] [place] [address] C. diff by PCRon 07-17-2022 Clostridium difficile [...] its clinical significance. Performed By: #### 4 [id number], 91891032, 18239061, [id number], [id number], [id number] ####[facility] [address] [place] [address] Fecal WBC Lactoferrinon 07-02 Fecal WBC Lactoferrin Positive Abnormal Negative [facility] Comment on above: Result Comment: The semi-quantitative detection of elevated levels of fecal lactoferrin is a marker for fecal leukocytes and an indication of intestinal inflammation. Performed By: #### 4 [id number], 78973894, 02846399, [id number], 89368477, 07865536 ####[facility] [address] [place] [address] Consent for Treatmenton 07-02 Consent for Treatment [id number] Normal [facility] Gastroenterology Office/Clin ic Noteon 07-15-2022 Gastroenterology Office/Clinic Note Chief Complaint f/u ER- abd pain, diarrhea and vomiting HPI Staff This is a 76 year old female who presents today for a referral by Sue for abnormal radiology testing. Patient seen in [place] [facility] 01/2022 for complaints of diarrhea, abdominal pain and nausea.- CT and labs completed History of Present Illness Sylvia presents today for abdominal pain, diarrhea, and vomiting. She was recently seen in the [place] emergency room with abdominal pain, diarrhea, and vomiting. She notes that she had a heart transplant in [place] in 2017. Afterwards she experienced diarrhea which [...] She was prescribed Creon 24 mg at [facility] in 2017, due to being [...] a recent CT scan at [facility] that showed a small lesion in the [...] insufficiency Pancreatic lesion Valvular heart disease Normal [facility] 07-05-2022 CNPN Telephone ([facility]) -- SYLVIA HERRERA ([id number]) 1945 F Date Time Provider Department 07/05/22 SHO CROWLEY [facility] During your visit today, we recorded the following information about you: Sho Crowley APRN.TAFFY CANDY MAKER 07/05/2022 10:48 AM Signed 07/03/22 labs: FK: [...] care with another team. Sho Crowley APRN, TAFFY CANDY MAKER Pager: [phone] July 05, 2022 10:42 AM Post Heart [...] transplant. No Dr Ellerp: Rfl: TACROLIMUS/FK-506 BL [[id number]] Order #: [id number] FUTURE Prescriptions as of 07/05/2022 - tacrolimus [...] mg by mouth three times daily. - hrpgzy-yvyqmczg-dqwsleq (CREON) 24,000-76,000 -120,000 unit cpDR Take 3 [...] 09/02/2019 A (more content not included)... Normal [facility] BOX TEST SENT OUTon 07-03-20 SENT TO REF LAB 07/03/2022 Normal [facility] Comment on above: Performed By: #### E RANDALL PINON #### [facility] Laboratory [address] [address] [address] Hardeep Rivera CBC AUTO DIFFon 07-03-2022 BASO # 0.0 103/ul Normal 0.0-0.1 [facility] Comment on above: Performed By: #### C BC #### [facility] [address] [address] [address] Hardeep Rivera Basophils/100 WBC (Bld) 0.3 % Normal 0.2-2.0 [facility] Comment on above: Performed By: #### C BC #### [facility] [address] [address] [address] Hardeep Rivera EO # 0.1 103/ul Normal 0.0-0.7 [facility] Comment on above: Performed By: #### C BC #### [facility] [address] [address] [address] Hardeep Rivera Eosinophils/100 WBC (Bld) 0.9 % Normal 0.9-7.0 [facility] Comment on above: Performed By: #### C BC #### [facility] [address] [place] [address] Dr. Hardeep Rivera Erythrocyte distribution width (RBC) [Ratio] 12.2 % Normal 11.0-15.0 [facility] Comment on above: Performed By: #### C BC #### [facility] [address] [place] [address] Dr. aHrdeep Rivera Hematocrit (Bld) [Volume fraction] 42.3 % Normal 36.0-48.0 [facility] Comment on above: Performed By: #### C BC #### [facility] [address] [place] [address] Dr. Hardeep Rivera Hemoglobin (Bld) [Mass/Vol] 14.0 g/dL Normal 12.0-16.0 [facility] Comment on above: Performed By: #### C BC #### [facility] [address] [place] [address] Dr. Hardeep Rivera IG # 0.04 10e3/ul Critically high 0.00-0.03 [facility] Comment on above: Performed By: #### C BC #### [facility] [address] [place] [address] Dr. Hardeep Rivera IG % 0.5 % Normal 0.0-0.5 [facility] Comment on above: Performed By: #### C BC #### [facility] [address] [place] [address] Dr. Hardeep Rivera LYMPH # 0.8 103/ul Critically low 1.2-3.8 [facility] Comment on above: Performed By: #### C BC #### [facility] [address] [place] [address] Dr. Hardeep Rivera Lymphocytes/100 WBC (Bld) 10.9 % Critically low 20.5-60.0 [facility] Comment on above: Performed By: #### C BC #### [facility] [address] [place] [address] Dr. Hardeep Rivera MANUAL DIFF REQ NO Normal [facility] Comment on above: Performed By: #### C BC #### [facility] [address] [place] [address] Dr. Hardeep Rivera MCH (RBC) [Entitic mass] 29.7 pg Normal 26.7-34.0 [facility] Comment on above: Performed By: #### C BC #### [facility] [address] [place] [address] Dr. Hardeep Rivera MCHC (RBC) [Mass/Vol] 33.1 g/dL Normal 29.9-35.2 [facility] Comment on above: Performed By: #### C BC #### [facility] [address] [place] [address] Dr. Hardeep Rivera MCV (RBC) [Entitic vol] 89.8 fL Normal 81.0-99.0 [facility] Comment on above: Performed By: #### C BC #### [facility] [facility] [address] [place] [address] Dr. Hardeep Rivera MONO # 0.9 103/ul Critically high 0.3-0.8 [facility] Comment on above: Performed By: #### C BC #### [facility] [place] [facility] [address] [place] [address] Dr. Hardeep Rivera Monocytes/100 WBC (Bld) 11.1 % Normal 1.7-12.0 [facility] Comment on above: Performed By: #### C BC #### [facility] [place] [address] [place] [address] Dr. Hardeep Rivera NEUT # 5.8 103/ul Normal 1.4-6.5 [facility] Comment on above: Performed By: #### C BC #### [facility] [address] [place] [address] Dr. Hardeep Rivera Neutrophils/100 WBC (Bld) 76.3 % Critically high 43.0-75.0 [facility] Comment on above: Performed By: #### C BC #### [facility] [address] [place] [address] Dr. Hardeep Rivera Platelet mean volume (Bld) [Entitic vol] 9.5 fL Normal 9.5-13.5 [facility] Comment on above: Performed By: #### C BC #### [facility] [address] [place] [address] Dr. Hardeep Rivera PLT 191 103/ul Normal 150-450 [facility] Comment on above: Performed By: #### C BC #### [facility] [place] [facility] [address] [address] [address] Hardeep Rivera RBC 4.71 106/ul Normal 4.20-5.40 [facility] Comment on above: Performed By: #### C BC #### [facility] [place] [address] [place] [address] Dr. Hardeep Rivera WBC 7.6 103/ul Normal 4.0-11.0 [facility] Comment on above: Performed By: #### C BC #### [facility] [place] [address] [place] [address] Dr. Hardeep Rivera CNPMary Kay 07-03-2022 CNPN Telephone (JULIAN [facility]) -- SYLVIA HERRERA ([id number]) 1945 F Date Time Provider Department 07/03/22 [...] mg by mouth three times daily. - zwvsmf-valqamaf-exbhini (CREON) 24,000-76,000 -120,000 unit cpDR Take 3 [...] Status:Closed by LINDEN WEEMS on 07/03/22 Normal [facility] PROF CHEM 8 (BAS METB)on Anion gap [Moles/Vol] 12.9 mmol/L Normal [facility] Comment on above: Performed By: #### Deedee PINON UMICRO #### [facility] [address] [place] [address] Dr. Hardeep Rivera Calcium [Mass/Vol] 9.0 mg/dL Normal 8.5-10.1 [facility] Comment on above: Performed By: #### Deedee PINON UMICRO #### [facility] [address] [place] [address] Dr. Hardeep Rivera Chloride [Moles/Vol] 98 mmol/L Normal 98-107 [facility] Comment on above: Performed By: #### Deedee PINON UMICRO #### [facility] [place] [address] [address] [address] Hardeep Rivera CO2 [Moles/Vol] 28.1 mmol/L Normal 21.0-32.0 [facility] Comment on above: Performed By: #### Deedee PINON UMICRO #### [facility] [address] [address] [address] Hardeep Rivera Creatinine [Mass/Vol] 1.64 mg/dL Critically high 0.55-1.02 [facility] Comment on above: Performed By: #### Deedee PINON, UMICRO #### [facility] [address] [place] [address] Dr. Hardeep Rivera EGFR-AF NIGERIEN 37 mL/min/1.73m2 Critically low >=60 [facility] Comment on above: Performed By: #### RANDALL OLOSN #### [facility] [address] [place] [address] Dr. Hardeep Rivera EGFR-NON AF NIGERIEN 30 mL/min/1.73m2 Critically low >=60 [facility] Comment on above: Performed By: #### HARI OLSONRO #### [facility] [address] [place] [address] Dr. Hardeep Rivera Glucose [Mass/Vol] 114 mg/dL Critically high 74-106 T [facility] Comment on above: Performed By: #### HARI OLSONRO #### [facility] [address] [place] [address] Dr. Hardeep Rivera Potassium [Moles/Vol] 4.0 mmol/L Normal 3.5-5.1 [facility] Comment on above: Performed By: #### HARI OLSONRO #### [facility] [address] [place] [address] Dr. Hardeep Rivera Sodium [Moles/Vol] 135 mmol/L Critically low 136-145 [facility] Comment on above: Performed By: #### HARI OLSONRO #### [facility] [address] [place] [address] Dr. Hardeep Rivera Urea nitrogen [Mass/Vol] 24.0 mg/dL Critically high 7.0-18.0 [facility] Comment on above: Performed By: #### HARI OLSONRO #### [facility] [address] [place] [address] Dr. Hardeep Rivera Urea nitrogen/Creatinine [Mass ratio] 14.6 mg/mg Normal [facility] Comment on above: Performed By: #### HARI OLSONRO #### [facility] [address] [place] [address] Dr. Hardeep Rivera Tacrolimus [facility] Tacrolimus (Bld) [Mass/Vol] 12.4 ng/mL Normal 5.0-20.0 [facility] Comment on above: Order Comment: Speci men [...] Test performed by chemiluminescent immunoassay using [employer] Manager. Performed By: #### 1 1253-2 ####[facility] [id number] [place] [address] [place] MG MAMM SCREEN 3D TRISHA CADon 05-28-2022 MG MAMM SCREEN 3D TRISHA CAD Patient: SYLVIA HERRERA Exam Date: 05/28/2022 : 1945 Gender:F Ordering : DR TAO ROONEY . Admission #: [id number] Family : Order #: [id number] CLICK HERE TO VIEW EXAM RADIOLOGY REPORT [...] Family Cancers None LOCATION: [facility] BREAST COMPOSITION: Heterogeneously dense,which may obscure small [...] MD on 05/28/2022 at 10:20 Normal [facility] Physician Referralon 022 Physician Referral [id number] [facility] 05-08-2022 ODETTEN Telephone (CARD MARICEL DEXTER) -- SVETLANASYLVIA BELL ([id number]) 1945 F Date Time Provider Department 05/08/22 LOIDA MATHIAS CARD [facility] During your visit today, we recorded the following information about you: Linden Weems 05/08/2022 11:50 AM Signed Patient had labs drawn 05/07/22, uploaded to scanned docs. Linden Weems Administrative Hospice Music Therapist Loida Mathias APRN.CNP 05/08/2022 3:21 PM Signed [...] transplant. No Dr Ellerp: Rfl: TACROLIMUS/FK-506 BL [[id number]] Order #: [id number] FUTURE Prescriptions as of 05/08/2022 - tacrolimus [...] mg by mouth three times daily. - pgfdgj-rwicsfxp-xyorwtp (CREON) 24,000-76,000 -120,000 unit cpDR Take 3 [...] 05/19/2014 [facility] (more content not included)... Normal [facility] BOX TEST SENT OUTon 05-07-20 22 SENT TO REF LAB 05/07/2022 Normal [facility] Comment on above: Performed By: #### E RUR, UMICRO #### [facility] [address] [place] [address] Dr. Hardeep Rivera CBC AUTO DIFFon 05-07-2022 BASO # 0.0 103/ul Normal 0.0-0.1 [facility] Comment on above: Performed By: #### E RUR, UMICRO #### [facility] [address] [place] [address] Dr. Hardeep Rivera Basophils/100 WBC (Bld) 0.4 % Normal 0.2-2.0 [facility] Comment on above: Performed By: #### Deedee PINON, UMICRO #### [facility] [address] [address] [address] Hardeep Rivera EO # 0.1 103/ul Normal 0.0-0.7 [facility] Comment on above: Performed By: #### Deedee PINON, UMICRO #### [facility] [address] [address] [address] Hardeep Rivera Eosinophils/100 WBC (Bld) 1.0 % Normal 0.9-7.0 [facility] Comment on above: Performed By: #### E RUR, UMICRO #### [facility] [address] [address] [address] Hardeep Rivera Erythrocyte distribution width (RBC) [Ratio] 12.6 % Normal 11.0-15.0 [facility] Comment on above: Performed By: #### E RUR, UMICRO #### [facility] [address] [place] [address] Dr. Hardeep Rivera Hematocrit (Bld) [Volume fraction] 44.0 % Normal 36.0-48.0 [facility] Comment on above: Performed By: #### HARI OLSONRO #### [facility] [address] [place] [address] Dr. Hardeep Rivera Hemoglobin (Bld) [Mass/Vol] 14.0 g/dL Normal 12.0-16.0 [facility] Comment on above: Performed By: #### HARI OLSONRO #### [facility] [address] [place] [address] Dr. Hardeep Rivera IG # 0.02 10e3/ul Normal 0.00-0.03 [facility] Comment on above: Performed By: #### HARI OLSONRO #### [facility] [address] [place] [address] Dr. Hardeep Rivera IG % 0.3 % Normal 0.0-0.5 [facility] Comment on above: Performed By: #### HARI OLSONRO #### [facility] [address] [place] [address] Dr. Hardeep Rivera LYMPH # 0.6 103/ul Critically low 1.2-3.8 The [facility] Comment on above: Performed By: #### HARI OLSONRO #### [facility] [address] [place] [address] Dr. Hardeep Rivera Lymphocytes/100 WBC (Bld) 8.2 % Critically low 20.5-60.0 [facility] Comment on above: Performed By: #### HARI OLSONRO #### [facility] [address] [place] [address] Dr. Hardeep Rivera MANUAL DIFF REQ NO Normal [facility] Comment on above: Performed By: #### HARI OLSONRO #### [facility] [address] [place] [address] Dr. aHrdeep Rivera MCH (RBC) [Entitic mass] 29.4 pg Normal 26.7-34.0 [facility] Comment on above: Performed By: #### HARI OLSONRO #### [facility] [place] [address] [place], [place] [id number] Dr. Hardeep Rivera MCHC (RBC) [Mass/Vol] 31.8 g/dL Normal 29.9-35.2 [facility] Comment on above: Performed By: #### Deedee PINON, UMICRO #### [facility] [address] [place] [address] Dr. Hardeep Rivera MCV (RBC) [Entitic vol] 92.2 fL Normal 81.0-99.0 [facility] Comment on above: Performed By: #### E KATHRIN, UMICRO #### [facility] [address] [place] [address] Dr. Hardeep Rivera MONO # 0.8 103/ul Normal 0.3-0.8 [facility] Comment on above: Performed By: #### Deedee PINON, UMICRO #### [facility] [address] [place] [address] Dr. Hardeep Rivera Monocytes/100 WBC (Bld) 9.6 % Normal 1.7-12.0 [facility] Comment on above: Performed By: #### Deedee PINON, UMICRO #### [facility] [address] [place] [address] Dr. Hardeep Rivera NEUT # 6.3 103/ul Normal 1.4-6.5 [facility] Comment on above: Performed By: #### Deedee PINON, UMICRO #### [facility] [address] [place] [address] Dr. Hardeep Rivera Neutrophils/100 WBC (Bld) 80.5 % Critically high 43.0-75.0 [facility] Comment on above: Performed By: #### Deedee PINON, UMICRO #### [facility] [address] [place] [address] Dr. Hardeep Rivera Platelet mean volume (Bld) [Entitic vol] 10.1 fL Normal 9.5-13.5 [facility] Comment on above: Performed By: #### E KATHRIN, UMICRO #### [facility] [address] [place] [address] Dr. Hardeep Rivera PLT 188 103/ul Normal 150-450 [facility] Comment on above: Performed By: #### RANDALL OLSON #### [facility] [place] [address] [address] [address] Hardeep Rivera RBC 4.77 106/ul Normal 4.20-5.40 [facility] Comment on above: Performed By: #### HARI OLSONRO #### [facility] [place] [address] [address] [address] Hardeep Rivera WBC 7.8 103/ul Normal 4.0-11.0 [facility] Comment on above: Performed By: #### HARI OLSONRO #### [facility] [address] [place] [address] Dr. Hardeep Rivera PROF CHEM 8 (BAS METB)on Anion gap [Moles/Vol] 11.9 mmol/L Normal [facility] Comment on above: Performed By: #### RANDALL OLSON #### [facility] [address] [place] [address] Dr. Hardeep Rivera Calcium [Mass/Vol] 8.7 mg/dL Normal 8.5-10.1 [facility] Comment on above: Performed By: #### RANDALL OLSON #### [facility] [address] [place] [address] Dr. Hardeep Rivera Chloride [Moles/Vol] 99 mmol/L Normal 98-107 [facility] Comment on above: Performed By: #### HARI OLSONRO #### [facility] [address] [place] [address] Dr. Hardeep Rivera CO2 [Moles/Vol] 27.1 mmol/L Normal 21.0-32.0 [facility] Comment on above: Performed By: #### HARI OLSONRO #### [facility] [address] [place] [address] Dr. Hardeep Rivera Creatinine [Mass/Vol] 1.62 mg/dL Critically high 0.55-1.02 [facility] Comment on above: Performed By: #### HARI OLSONRO #### [facility] [address] [address] [address] Hardeep Rivera EGFR-AF NIGERIEN 37 mL/min/1.73m2 Critically low >=60 [facility] Comment on above: Performed By: #### Deedee PINON UMICRO #### [facility] [address] [address] [address] Hardeep Rivera EGFR-NON AF NIGERIEN 31 mL/min/1.73m2 Critically low >=60 [facility] Comment on above: Performed By: #### E KATHRIN, UMICRO #### [facility] [address] [address] [address] Hardeep Rivera Glucose [Mass/Vol] 73 mg/dL Critically low 74-106 [facility] Comment on above: Performed By: #### Deedee PINON, UMICRO #### [facility] [address] [place] [address] Dr. Hardeep Rivera Potassium [Moles/Vol] 4.0 mmol/L Normal 3.5-5.1 [facility] Comment on above: Performed By: #### Deedee PINON UMICRO #### [facility] [address] [place] [address] Dr. Hardeep Rivera Sodium [Moles/Vol] 134 mmol/L Critically low 136-145 [facility] Comment on above: Performed By: #### Deedee PINON, UMICRO #### [facility] [address] [place] [address] Dr. Hardeep Rivera Urea nitrogen [Mass/Vol] 33.0 mg/dL Critically high 7.0-18.0 [facility] Comment on above: Performed By: #### Deedee PINON UMICRO #### [facility] [address] [place] [address] Dr. Hardeep Rivera Urea nitrogen/Creatinine [Mass ratio] 20.4 mg/mg Normal [facility] Comment on above: Performed By: #### Deedee PINON, UMICRO #### [facility] [address] [place] [address] Dr. Hardeep Rivera TACROLIMUS/FK-506 BLon 05-07 Tacrolimus (Bld) [Mass/Vol] 3.4 ng/mL Low 5.0-20.0 [facility] Comment on above: Order Comment: Speci men [...] situation. Test performed by chemiluminescent immunoassay using [employer]. Performed By: #### F K506 ####[facility]IA [id number] [address] OF [facility] 05-03-2022 ODETTEN Telephone (JULIAN [facility] ISACC) -- SYLVIA HERRERA ([id number]) 1945 F Date Time Provider Department 05/03/22 SHO CROWLEY [facility] During your visit today, we recorded the following information about you: Sho Crowley APRN.TAFF[employer] CANDY MAKER 05/03/2022 2:58 PM Signed received phone call from [facility] Cardiology group requesting patient's Tacrolimus levels from 04/24. Faxed results to [phone]. Allergies As of Date: 05/03/2022 Noted Allergy [...] mg by mouth three times daily. - vqllyg-ctnkhslo-iwgmpvb (CREON) 24,000-76,000 -120,000 unit cpDR Take 3 [...] Status:Closed by SHO CROWLEY on 05/03/22 Normal [facility] BOX TEST SENT OUTon 04-24-20 22 SENT TO REF LAB 04/24/2022 Normal [facility] Comment on above: Performed By: #### RANDALL OLSON #### [facility] [address] [place] [address] Dr. Hard[facility]ep [facility] 04-24-2022 ODETTEN Telephone (CARD CHF ISACC) -- SYLVIA HERRERA ([id number]) 1945 F Date Time Provider Department 04/24/22 LOIDA MATHIAS CHF [facility]ACC During your visit today, we recorded the following information about you: Linden Weems 04/24/2022 1:31 PM Signed Patient left message that she had labs drawn today. Linden Weems Administrative Hospice Music Therapist Post Heart Transplant J3-4 Loida Mathias APRN.ODETTE 04/26/2022 11:25 AM Signed Received FK level 4.5, drawn 04/24 My chart message sent to patient. Advised to remain on current dose and keep our office updated re: her plans for post transplant follow up. Loida Mathias APRN.TAFFY CANDY MAKER April 26, 2022 11:24 AM Component Latest [...] mg by mouth three times daily. - fgsrod-usoyplzm-ngucnfq (CREON) 24,000-76,000 -120,000 unit cpDR Take 3 [...] Status:Closed by LINDEN WEEMS on 04/24/22 Normal [facility] TACROLIMUS/FK-506 BLon 04-24 Tacrolimus (Bld) [Mass/Vol] 4.5 ng/mL Low 5.0-20.0 [facility] Comment on above: Order Comment: Speci men [...] Test performed by chemiluminescent immunoassay using [employer] Manager. Performed By: #### F K506 ####[facility] LAB[facility] [id number] [place] [address] [place] FK506 (TACROLIMUS) WHOLE BLO ODon 04-11-2022 Tacrolimus (FK506), Blood 7.3 ng/mL Normal 2.0-20.0 [facility] Comment on above: Result Comment: Trou gh (immediately following transplant) 15.0 . Trough (steady state, 2 weeks or more after transplant): 3.0 - 8.0 . Performed by LC-MS/MS technology. Performed By: #### HARI OLSONRO #### [facility] [address] [place] [address] Dr. Hardeep Rivera BOX TEST SENT OUTon 04-09-20 22 SENT TO REF LAB 04/09/2022 Normal [facility] Comment on above: Performed By: #### HARI OLSONRO #### [facility] [address] [place] [address] Dr. Hardeep Rivera CBC AUTO DIFFon 04-09-2022 BASO # 0.0 103/ul Normal 0.0-0.1 [facility] Comment on above: Performed By: #### HARI OLSONRO #### [facility] [address] [place] [address] Dr. Hardeep Rivera Basophils/100 WBC (Bld) 0.1 % Critically low 0.2-2.0 [facility] Comment on above: Performed By: #### HARI OLSONRO #### [facility] [address] [place] [address] Dr. Hardeep Rivera EO # 0.1 103/ul Normal 0.0-0.7 [facility] Comment on above: Performed By: #### RANDALL OLSON #### [facility] [address] [place] [address] Dr. Hardeep Rivera Eosinophils/100 WBC (Bld) 1.2 % Normal 0.9-7.0 [facility] Comment on above: Performed By: #### HARI OLSONRO #### [facility] [address] [place] [address] Dr. Hardeep Rivera Erythrocyte distribution width (RBC) [Ratio] 12.6 % Normal 11.0-15.0 [facility] Comment on above: Performed By: #### HARI OLSONRO #### [facility] [address] [place] [address] Dr. Hardeep Rivera Hematocrit (Bld) [Volume fraction] 44.1 % Normal 36.0-48.0 [facility] Comment on above: Performed By: #### E RUR, UMICRO #### [facility] [address] [place] [address] Dr. Hardeep Rivera Hemoglobin (Bld) [Mass/Vol] 14.1 g/dL Normal 12.0-16.0 [facility] Comment on above: Performed By: #### E RUR, UMICRO #### [facility] [address] [place] [address] Dr. Hardeep Rivera IG # 0.02 10e3/ul Normal 0.00-0.03 [facility] Comment on above: Performed By: #### E RUTrish, UMICRO #### [facility] [address] [place] [address] Dr. Hardeep Rivera IG % 0.3 % Normal 0.0-0.5 [facility] Comment on above: Performed By: #### E KATHRIN UMICRO #### [facility] [address] [place] [address] Dr. Hardeep Rivera LYMPH # 0.7 103/ul Critically low 1.2-3.8 [facility] Comment on above: Performed By: #### Deedee PINON UMICRO #### [facility] [address] [place] [address] Dr. Hardeep Rivera Lymphocytes/100 WBC (Bld) 10.8 % Critically low 20.5-60.0 [facility] Comment on above: Performed By: #### Deedee PINON UMICRO #### [facility] [address] [place] [address] Dr. Hardeep Rivera MANUAL DIFF REQ NO Normal [facility] Comment on above: Performed By: #### E RUTrish, UMICRO #### [facility] [address] [place] [address] Dr. Hardeep Rivera MCH (RBC) [Entitic mass] 29.3 pg Normal 26.7-34.0 [facility] Comment on above: Performed By: #### E RUTrish, UMICRO #### [facility] Laboratory [address] [place] [address] Dr. Hardeep Rivera MCHC (RBC) [Mass/Vol] 32.0 g/dL Normal 29.9-35.2 [facility] Comment on above: Performed By: #### RANDALL OLSON #### [facility] [address] [place] [address] Dr. Hardeep Rivera MCV (RBC) [Entitic vol] 91.7 fL Normal 81.0-99.0 [facility] Comment on above: Performed By: #### HARI OLSONRO #### [facility] [address] [place] [address] Dr. Hardeep Rivera MONO # 0.7 103/ul Normal 0.3-0.8 [facility] Comment on above: Performed By: #### HARI OLSONRO #### [facility] [address] [place] [address] Dr. Hardeep Rivera Monocytes/100 WBC (Bld) 10.8 % Normal 1.7-12.0 [facility] Comment on above: Performed By: #### RANDALL OLSON #### [facility] [address] [place] [address] Dr. Hardeep Rivera NEUT # 5.2 103/ul Normal 1.4-6.5 [facility] Comment on above: Performed By: #### RANDALL OLSON #### [facility] [address] [place] [address] Dr. Hardeep Rivera Neutrophils/100 WBC (Bld) 76.8 % Critically high 43.0-75.0 [facility] Comment on above: Performed By: #### HARI OLSONRO #### [facility] [address] [place] [address] Dr. Hardeep Rivera Platelet mean volume (Bld) [Entitic vol] 9.8 fL Normal 9.5-13.5 [facility] Comment on above: Performed By: #### HARI OLSONRO #### [facility] [address] [place] [address] Dr. Hardeep Rivera PLT 200 103/ul Normal 150-450 [facility] Comment on above: Performed By: #### HARI OLSONRO #### [facility] [address] [place] [address] Dr. Hardeep Rivera RBC 4.81 106/ul Normal 4.20-5.40 [facility] Comment on above: Performed By: #### Deedee PINON UMICRO #### [facility] [address] [place] [address] Dr. Hardeep Rivera WBC 6.7 103/ul Normal 4.0-11.0 [facility] Comment on above: Performed By: #### Deedee PINON UMICRO #### [facility] [address] [place] [address] Dr. Hardeep Rivera PROF CHEM 8 (BAS METB)on Anion gap [Moles/Vol] 9.1 mmol/L Normal [facility] Comment on above: Performed By: #### Deedee PINON UMICRO #### [facility] [address] [place] [address] Dr. Hardeep Rivera Calcium [Mass/Vol] 8.3 mg/dL Critically low 8.5-10.1 [facility] Comment on above: Performed By: #### Deedee PINON UMICRO #### [facility] [address] [place] [address] Dr. Hardeep Rivera Chloride [Moles/Vol] 100 mmol/L Normal 98-107 [facility] Comment on above: Performed By: #### Deedee PINON UMICRO #### [facility] [address] [place] [address] Dr. Hardeep Rivera CO2 [Moles/Vol] 28.1 mmol/L Normal 21.0-32.0 [facility] Comment on above: Performed By: #### Deedee PINON UMICRO #### [facility] [address] [place] [address] Dr. Hardeep Rivera Creatinine [Mass/Vol] 1.54 mg/dL Critically high 0.55-1.02 [facility] Comment on above: Performed By: #### Deedee PINON UMICRO #### [facility] [address] [place] [address] Dr. Hardeep Rivera EGFR-AF NIGERIEN 40 mL/min/1.73m2 Critically low >=60 [facility] Comment on above: Performed By: #### RANDALL OLSON #### [facility] [address] [place] [address] Dr. Hardeep Rivera EGFR-NON AF NIGERIEN 33 mL/min/1.73m2 Critically low >=60 [facility] Comment on above: Performed By: #### HARI OLSONRO #### [facility] [address] [place] [address] Dr. Hardeep Rivera Glucose [Mass/Vol] 122 mg/dL Critically high 74-106 T [facility] Comment on above: Performed By: #### HARI OLSONRO #### [facility] [address] [place] [address] Dr. Hardeep Rivera Potassium [Moles/Vol] 4.2 mmol/L Normal 3.5-5.1 [facility] Comment on above: Performed By: #### HARI OLSONRO #### [facility] [address] [place] [address] Dr. Hardeep Rivera Sodium [Moles/Vol] 133 mmol/L Critically low 136-145 [facility] Comment on above: Performed By: #### HARI OLSONRO #### [facility] [address] [place] [address] Dr. Hardeep Rivera Urea nitrogen [Mass/Vol] 28.0 mg/dL Critically high 7.0-18.0 [facility] Comment on above: Performed By: #### HARI OLSONRO #### [facility] [address] [place] [address] Dr. Hardeep Rivera Urea nitrogen/Creatinine [Mass ratio] 18.2 mg/mg Normal [facility] Comment on above: Performed By: #### HARI OLSONRO #### [facility] [address] [place] [address] Dr. Hardeep Rivera TACROLIMUS/FK-506 BLon 04-09 Tacrolimus (Bld) [Mass/Vol] 9.9 ng/mL Normal 5.0-20.0 [facility] Comment on above: Order Comment: Víctor friend [...] Test performed by chemiluminescent immunoassay using [employer] Manager. Performed By: #### F K506 ####[facility] [id number] [address] Eduardo 10-10-2021 NIK Telephone (JULIAN [facility]) -- SYLVIA HERRERA ([id number]) 1945 F Date Time Provider Department 10/10/21 LOIDA MATHIAS [facility] During your visit today, we recorded the following information about you: Linden Weems 10/10/2021 11:57 AM Signed Patient had labs drawn today Linden Weems [facility] Music Therapist Linden Weems 10/11/2021 10:57 AM Signed Labs uploaded to scanned docs. Linden Weems [facility] Music Therapist Loida Mathias APRN.CNP 10/12/2021 12:28 PM Signed Received outside labs drawn 10/10 -- FK 10.1 Cr 1.4 BUN 24 K 4.8 FBS 105 WBC 8300 Hgb 13 Hct 42 Plts 209 Called and left message for patient. Advised if this was a good 12 hr trough, to reduce Tacrolimus to 0.5 mg BID. Repeat labs in 2 weeks. Loida Mathias APRN.[employer]AND[employer] MAKER October 12, 2021 12:27 PM Loida Mathias [...] by transplant. No Dr Caldera: Rfl: TACROLIMUS/FK-506 [[id number]] Order #: [id number] FUTURE Prescriptions as of 10/12/2021 - tacrolimus [...] mg by mouth three times daily. - xhikhn-ydaadrod-nluahor (CREON) 24,000-76,000 -120,000 unit cpDR Take 3 [...] [J18.9] 11/29 (more content not included)... Normal [facility] Tacrolimus / [id number] 021 Tacrolimus / FK506 10.1 ng/mL Normal 5.0-20.0 [facility] Comment on [...] Test performed by chemiluminescent immunoassay using [employer] Manager. Performed By: #### F K506 ####[facility] [id number] [place], [place] [id number] Eduardo 09-13-2021 CNPN Telephone (CARD MARICEL DEXTER) -- SYLVIA HERRERA ([id number]) 1945 F Date Time Provider Department 09/13/21 ARELIS NEWSOME [facility] During your visit today, we recorded the following information about you: Linden Weems 09/13/2021 2:52 PM Signed S/w pt, due to transportation and financial constraints she is unable to come to [place] for appointments. Patient is working with her skilled nursing case manager to establish care with a local pump servicer (had previously been followed by one in [place]).Dr Rice has agreed and plan going forward will be to do a phone visit with pt on 10/03 and she will follow up in the interim with her local Platform Operations Director. Sending pt mailers and lab order, she will get those done as soon as she can. Linden Weems [facility] Music Therapist Allergies As of Date: 09/13/2021 Noted Allergy [...] mg by mouth three times daily. - ktgaig-avjbpdcq-hygmbiu (CREON) 24,000-76,000 -120,000 unit cpDR Take 3 [...] Encounter Status:Closed by LINDEN WEEMS on 09/13/21 [facility] OBSOLETEon 09-12-2021 OBSOLETE Refill (CARD [facility] ) -- SYLVIA HERRERA ([id number]) 1945 F Date Time Provider Department 09/12/21 SANDRITA GUERRERO CARD [facility] During your visit today, we recorded [...] mg by mouth three times daily. - yawnna-vlegicux-txcffkt (CREON) 24,000-76,000 -120,000 unit cpDR Take 3 [...] 09/02/2019 Diabetes mellitus, type II ([facility]) [E11.9] 04/29/2014 DREW (acute kidney injury) ([facility]) [N17.9] 05/06/2014 05/19/2014 Orthostasis [I95.1] 05/06/2014 05/19/2014 [...] Status:Closed by SANDRITA GUERRERO on 09/12/21 Normal [facility] Vital Signs Date Time Vital Sign Value Performing Clinician Dami charles 04-08-2023 06:45-0400 Diastolic blood pressure 76 mm[Hg] Blurb [facility] 04-08-2023 06:45-0400 Heart rate 59 /min Blurb [facility] 04-08-2023 06:45-0400 Hourly Rounding Blurb [facility] 04-08-2023 06:45-0400 Mean blood pressure 106 mm[Hg] Blurb [facility] 04-08-2023 06:45-0400 Respiratory rate 18 /min Blurb [facility] 04-08-2023 06:45-0400 SaO2% (BldA) [Mass fraction] 96 % Richard Roby [facility] 04-08-2023 06:45-0400 Systolic blood pressure 167 mm[Hg] Richard Roby [facility] 04-08-2023 05:30-0400 Diastolic blood pressure 88 mm[Hg] Richard Roby [facility] 04-08-2023 05:30-0400 Heart rate 52 /min Richard Roby [facility] 04-08-2023 05:30-0400 Hourly Rounding Richard Roby [facility] 04-08-2023 05:30-0400 Mean blood pressure 114 mm[Hg] Richard Roby [facility] 04-08-2023 05:30-0400 Respiratory rate 18 /min Richard Roby [facility] 04-08-2023 05:30-0400 SaO2% (BldA) [Mass fraction] 95 % Richard Roby [facility] 04-08-2023 05:30-0400 Systolic blood pressure 167 mm[Hg] Richard Roby [facility] 04-08-2023 04:39-0400 Diastolic blood pressure 90 mm[Hg] Richard Roby [facility] 04-08-2023 04:39-0400 Heart rate 56 /min Richard Roby [facility] 04-08-2023 04:39-0400 Hourly Rounding Richard Roby [facility] 04-08-2023 04:39-0400 Mean blood pressure 112 mm[Hg] Richard Roby [facility] 04-08-2023 04:39-0400 Respiratory rate 17 /min Richard Roby [facility] 04-08-2023 04:39-0400 SaO2% (BldA) [Mass fraction] 94 % Richard Roby [facility] 04-08-2023 04:39-0400 Systolic blood pressure 155 mm[Hg] Richard Roby [facility] 04-07-2023 21:48-0400 Respiratory rate 18 /min Richard Roby [facility] 04-07-2023 21:19-0400 Body temperature 98.06 [degF] Richard Ca [facility] 04-07-2023 21:19-0400 Heart rate 65 /min Richard Roby [facility] 04-07-2023 21:19-0400 Respiratory rate 19 /min [facility] Roby [facility] Encounters Encounter Date Encounter Type Care Provider Facility Start: 07-01-2024 End: 07-01-2024 ambulatory [facility] Start: 06-18-2024 End: 06-18-2024 ambulatory NON STAFF [facility] Work Phone: Start: 06-18-2024 End: 06-18-2024 Departed Referred [facility] Start: 02-03-2024 End: 02-03-2024 ambulatory [facility] Start: 11-12-2023 End: 11-12-2023 ambulatory [facility] Start: 08-07-2023 End: 08-07-2023 ambulatory [facility] Start: 04-07-2023 End: 04-08-2023 Emergency department patient visit Richard Ca Facility:[facility] Start: 04-07-2023 End: 04-08-2023 Emergency department patient visit Richard Ca [facility] Start: 03-05-2023 End: 03-05-2023 ambulatory SCOT ROGERS [...] ROGERS Facility:[facility] Start: 09-08-2022 Refill Sandrita Guerrero APRN.[employer] MAK[employer] Work Phone: Cardiology Comment on above: Refill Request Start: 08-04-2022 End: 08-04-2022 ambulatory NANCY REYES . Facility:[facility] Start: 08-02-2022 Telephone encounter Loida Mathias APRN.CNP Work Phone: Cardiology Comment on above: Heart Transplant Fol low Up (Labs/) Start: 08-02-2022 End: 08-03-[address] TAO ROONEY . Facility:[facility] Start: 07-27-[address] TAO ROONEY . Facili ty:[facility] Start: 07-17-2022 End: 07-18-2022 ambulatory [facility] Facility:[facility] Start: 07-16-2022 End: 07-17-2022 ambulatory [facility] Facility:[facility] Start: 07-16-2022 End: 07-16-2022 Patient encounter procedure [facility] Start: 07-12-2022 End: 07-13-2022 ambulatory [facility] Facility:[facility] Start: 07-05-2022 Telephone encounter Sho Crowley APRN.[employer]AND[employer] MAK[employer] Work Phone: Cardiology Comment on above: Heart Transplant Fol low Up; Lab Meeting Start: 07-03-2022 Telephone encounter Soy Mccann RN [facility] rdiology Comment on above: Heart Transplant Fol low Up (labs) Start: 07-03-2022 End: 07-04-[address] TAO ROONEY . Facility:[facility] Start: 05-28-2022 End: 05-29-[address] TAO ROONEY . Facility:[facility] Start: 05-23-2022 ambulatory [facility] Facility:[facility] Start: 05-08-2022 Telephone encounter Loida Mathias APRN.[employer] MAKER Work Phone: Cardiology Comment on above: Heart Transplant Fol low Up (labs) Start: 05-07-2022 End: 05-08-[address] TAO ROONEY . Facility: Start: 04-24-2022 Telephone encounter Loida Mathias APRN.[employer]FF[employer] CANDY MAKER Work Phone: Cardiology Comment on above: Heart Transplant Fol low Up Start: 04-24-2022 End: 04-25-[address] TAO ROONEY . Facility:[facility] Start: 04-20-[address] TAO ROONEY . Facili ty:[facility] Start: 04-11-2022 ambulatory Loida fontaine APRN.[employer]AND[employer] MAKER Work Phone: [facility] Start: 04-11-2022 Follow-up encounter Loida Mathias APRN.[employer]FF[employer] CANDY MAKER Work Phone: Cardiology Comment on above: Heart Transplant Fol low Up (Labs) Start: 04-09-2022 End: 04-10-[address] TAO ROONEY . Facility: Start: 04-06-2022 Orders Only Loida fontaine APRN.[employer]AND[employer] MAKER Work Phone: Cardiology Comment on above: Heart replaced by tr ansplant (HCC) (Primary Dx) Start: 04-04-2022 Refill Loida fontaine APRN.[employer] MAKER Work Phone: Cardiology Comment on above: Rx Refills Start: 10-03-2021 End: 10-03-2021 ambulatory NICOLETTE RICE [facility] Procedures Date Procedure Procedure Detail Performing Clinician Start: 08-10-2013 H/O: heart recipient Heart transplan arianna Loida Mathias APRN.[employer] MAK[employer] Work Phone: H/O: heart recipient Heart transplanted ( HCC) Loida Iammarino RAT TRAPPER.[employer] Work Phone: H/O: heart recipient Heart repla nitish by transplant ([facility]) Loida Iammarino RAT TRAPPER.[employer] MAK[employer] Work Phone: H/O: heart recipient Heart transplanted ( HCC) Loida Iammarino RAT TRAPPER.[employer] MAK[employer] Work Phone: H/O: heart recipient Heart transplanted ( HCC) Loida Iammarino RAT TRAPPER.[employer] Work Phone: H/O: heart recipient Heart transplanted ( HCC) Sho Crowley APRN.[employer] MAKER Work Phone: H/O: heart recipient Hx of heart transplant( Confirmed ) Eddie JAMA Plan of Treatment Date Care Activity Detail Author Start: 08-02-2022 Influenza vaccination INFLUENZA (#1) [facility] Start: 07-19-2022 End: 09-18-2022 Tacrolimus [Mass/volume] in Blood TACROLIMUS/FK-506 BL Lab Routine Heart transplanted (HCC) Expected: 07/19/2022 (Approximate), Expires: 09/18/2022 [facility] Work Phone: Comment on above: Expected: 07/19/2022 (Approximate), Expires: 09/18/2022 Start: 05-21-2022 End: 07-21-2022 TACROLIMUS/FK-506 BL TACROLIMUS/FK-506 BL Lab Routine Heart transplanted (HCC) Expected: 05/21/2022, Expires: 07/21/2022 [facility] Work Phone: Comment on above: Expected: 05/21/2022 , Expires: 07/21/2022 Start: 04-23-2022 End: 06-23-2022 TACROLIMUS/FK-506 BL TACROLIMUS/FK-506 BL Lab Routine Heart transplanted (HCC) Expected: 04/23/2022, Expires: 06/23/2022 [facility] Work Phone: Comment on above: Expected: 04/23/2022 , Expires: 06/23/2022 Start: 04-09-2022 End: 06-09-2022 CBC W Auto Differential panel - Blood CBC + DIFF Lab Routine Heart replaced by transplant (HCC) Expected: 04/09/2022, Expires: 06/09/2022 [facility] Work Phone: Comment on above: Expected: 04/09/2022 , Expires: 06/09/2022 Start: 04-09-2022 End: 06-09-2022 Comprehensive metabolic 2000 panel - Serum or Plasma COMP METABOLIC PANEL Lab Routine Heart replaced by transplant ([facility]) Expected: 04/09/2022, Expires: 06/09/2022 [facility] Work Phone: Comment on above: Expected: 04/09/2022 , Expires: 06/09/2022 Start: 04-09-2022 End: 04-06-2023 HEART/LUNG REC POST TX DSA HEART/LUNG REC POST TX DSA ALLOGEN Routine Heart replaced by transplant ([facility]) Expected: 04/09/2022, Expires: 04/06/2023 [facility] Work Phone: Comment on above: Expected: 04/09/2022 , Expires: 04/06/2023 Start: 04-09-2022 End: 06-09-2022 LIPID PANEL BASIC LIPID PANEL BASIC Lab Routine Heart replaced by transplant (HCC) Expected: 04/09/2022, Expires: 06/09/2022 [facility] Work Phone: Comment on above: Expected: 04/09/2022 , Expires: 06/09/2022 Start: 04-09-2022 End: 06-09-2022 Magnesium [Mass/volume] in Serum or Plasma MAGNESIUM BLD Lab Routine Heart replaced by transplant ([facility]) Expected: 04/09/2022, Expires: 06/09/2022 [facility] Work Phone: Comment on above: Expected: 04/09/2022 , Expires: 06/09/2022 Start: 04-09-2022 End: 06-09-2022 TACROLIMUS/FK-506 BL TACROLIMUS/FK-506 BL Lab Routine Heart replaced by transplant ([facility]) Expected: 04/09/2022, Expires: 06/09/2022 [facility] Work Phone: Comment on above: Expected: 04/09/2022 , Expires: 06/09/2022 Start: 04-09-2022 End: 06-09-2022 URINALYSIS, DIPSTICK ONLY URINALYSIS, DIPSTICK ONLY Lab Routine Heart replaced by transplant ([facility]) Expected: 04/09/2022, Expires: 06/09/2022 [facility] Work Phone: Comment on above: Expected: 04/09/2022 , Expires: 06/09/2022 Start: 12-02-2021 ADVANCE DIRECTIVE DISCUSSION ADVANCE DIRECTIVE DISCUSSION [facility] Start: 09-26-2021 COVID-19 VACCINE (3 - Pfizer risk 4-dose series) COVID-19 VACCINE (3 - Pfizer risk 4-dose series) [facility] Start: 09-26-2021 COVID-19 VACCINE (3 - Pfizer risk series) COVID-19 VACCINE (3 - Pfizer risk series) [facility] Start: 03-04-2020 Hepatitis B surface antibody level LDL CHOLESTEROL [facility] Start: 06-14-2015 Hemoglobin A1c/Hemoglobin.total in Blood HBA1C [facility] Start: 11-01-2013 PNEUMOCOCCAL: 65+ (3 - PCV) PNEUMOCOCCAL: 65+ (3 - PCV) [facility] Start: 2009 ADULT PREVNAR ADULT PREVNAR [facility] Start: 1994 SHINGRIX VACCINE (1 of 2) SHINGRIX VACCINE (1 of 2) [facility] Start: 1963 SHINGRIX VACCINE (1 of 2) SHINGRIX VACCINE (1 of 2) [facility] Start: 1963 Urine microalbumin profile DTAP,TDAP,TD (1 - Tdap) [facility] Start: 1962 ANNUAL PCP TEAM INSPECTOR MATERIALS AND PROCESSES BRENNAN DISEASE VISIT ANNUAL PCP TEAM CHRONIC DISEASE VISIT [facility] Start: 1962 BP CONTROLLED (<130/80) BP CONTROLLE D (<130/80) [facility] Start: 1954 3 comp foot exam completed DIABETIC FOOT EXAM [facility] Start: 1954 Hepatitis B screening URINE ALBUMIN:CREATININE RATIO [facility] Start: 1954 Hepatitis C antibody , confirmatory test DILATED RETINAL EXAM [facility] Start: 1950 PNEUMOCOCCAL: 65+ (1 - PCV) PNEUMOCOCCAL: 65+ (1 - PCV) [facility] [place] [facility] Immunizations Immunization Date Immunization Notes Care Provider Fa cility 06-05-2022 SARS-CoV-2 mRNA (yixrwwsktma-erzj-vseal se) vaccine Morgan SALBareedEE [facility] 08-29-2021 SARS-CoV-2 (COVID-19 ) mRNA BNT-162b2 vax Morgan SALAM [facility] 08-02-2021 SARS-CoV-2 (COVID-19 ) mRNA BNT-162b2 vax Morgan SALAM [facility] 07-05-2021 influenza virus vaccine, unspecified formulation Morgan SALAM [facility] 09-29-2020 influenza, unspecifi ed formulation Morgan SALAM [facility] 07-24-2020 influenza virus vaccine, unspecified formulation Morgan SapiensAM [facility] 09-02-2017 influenza virus vaccine, unspecified formulation Morgan SALAM [facility] 08-07-2017 pneumococcal conjuga te vaccine, 13 valent Morgan SALAM [facility] 08-14-2016 influenza virus vaccine, unspecified formulation Morgan SALAM [facility] 09-29-2015 pneumococcal conjuga te vaccine, 13 valent Morgan SALAM [facility] 08-04-2015 influenza virus vaccine, unspecified formulation Morgan SALAM [facility] 09-15-2014 influenza virus vaccine, whole virus Loida Iammarino RAT TRAPPER.[facility] Work Phone: [facility] 09-15-2014 influenza, whole Morgan SALAM [facility] 11-01-2012 pneumococcal polysaccharide vaccine, 23 valent Loida Iammarino RAT TRAPPER.[facility] Work Phone: [facility] 12-28-2009 novel [id number], all formulations Loida Iammarino RAT TRAPPER.[facility] Work Phone: [facility] Work Phone: 08-19-2009 influenza virus vaccine, unspecified formulation Loida Iammarino RAT TRAPPER.[facility] Work Phone: [facility] 09-01-2006 influenza virus vaccine, unspecified formulation Loida Iammarino RAT TRAPPER.[facility] Work Phone: [facility] Work Phone: 09-01-2006 pneumococcal polysaccharide vaccine, 23 valent Loida Iammarino RAT TRAPPER.[facility] Work Phone: [facility] Work Phone: NEGATED: Highlighted row has not occurred!07-12-2022 influenza virus vaccine, unspecified formulation Morgan SALAM [facility] Payers Date Payer Category Payer Self-pay 2022 Medicare UHC MEDICARE UHC DUAL COMPLETE HMO SNP [id number] 2022-Present [phone] [address] [place] [address] Medicare [id number] 2022 Medicare UHC MEDICARE UHC DUAL COMPLETE HMO SNP [id number] 2022-Present [phone] [address] [place] [address] Medicare [id number] 2020 Unknown [id number] 1959 Medicaid [id number] 1959 Medicare [id number] 1959 Self-pay [id number] 1959 Unknown [id number] 1944 Unknown [id number] 2.16.840.1.212716.3.579.2.593 1944 Unknown [id number] 2.16.840.1.707445.3.579.2.593 1944 Unknown [id number] 2.16.840.1.945952.3.579.2.593 1944 Unknown [id number] 2.16.840.1.694479.3.579.2.593 1944 Unknown [id number] 2.16.840.1.119493.3.579.2.593 1944 Unknown [id number] 2.16.840.1.050577.3.579.2.593 1944 Unknown [id number] 2.16.840.1.146309.3.579.2.593 1944 Unknown [id number] 2.16.840.1.707778.3.579.2.593 1944 Unknown [id number] 2.16.840.1.598113.3.579.2.593 1944 Unknown [id number] 2.16.840.1.315502.3.579.2.593 1944 Unknown [id number] 2.16.840.1.763969.3.579.2.593 1944 Unknown [id number] 2.16.840.1.423525.3.579.2.593 1944 Unknown [id number] 2.16.840.1.805281.3.579.2.593 1944 Unknown [id number] 2.16.840.1.873066.3.579.2.593 1944 Unknown [id number] 2.16.840.1.701521.3.579.2.593 1944 Unknown [id number] 2.16.840.1.968707.3.579.2.593 1944 Unknown [id number] 2.16.840.1.044790.3.579.2.593 1944 Unknown [id number] 2.16.840.1.450791.3.579.2.593 1944 Unknown [id number] 2.16.840.1.866501.3.579.2.727 1944 Unknown [id number] 2.16.840.1.562136.3.579.2.727 1944 Unknown [id number] 2.16.840.1.326261.3.579.2.727 1944 Unknown [id number] 2.16.840.1.317084.3.579.2.727 1944 Unknown [id number] 2.16.840.1.647302.3.579.2.727 Unknown [id number] 2.16.840.1.230062.3.579.2.593 Social History Date Type Detail Facility Start: 05-13-2019 Tobacco smoking stat us NHIS Ex-smoker [facility] Work Phone: History of tobacco use Cigarette Smoker C [facility] Work Phone: Start: 09-07-2019 Alcohol intake Current non-dr informix developer of alcohol (finding) [facility] Start: 1945 Sex Assigned At Not on file C [facility] Start: 07-12-2022 Never smoked t obacco (finding) [facility] Never [facility] Female [facility] History of tobacco use Current smoker [facility] Start: 05-13-2019 Cigarettes smoked current (pack per day) - Reported 0.3 [facility] Start: 05-13-2019 Tobacco use and exposure Smokeless tobacco non-user [facility] Start: 1945 Sex Assigned At Female F [facility] Functional Status Date Assessment Result Facility 04-07-2023 Functional Status N/A [facility] Clinical Notes 11-14-2017 to 07-01-2024 Note Date & Type Note Facility 07-01-2024 Note [facility] Subjective Sylvia Herrera is a 78 y.o. year old female patient being seen for follow up [facility] for syncope. Says she's been [...] There is no (more content not included)... [facility] 02-03-2024 Note [facility] Subjective Sylvia Herrera is a 78 y.o. year old female patient being seen for follow up [facility]. She was seen as inpatient [...] Alcohol use: Not Currently Drug use: Never [facility] Visit of 10/30/2021: Sylvia is seen [...] the prior echocardiographi (more content not included)... [facility] 11-12-2023 Note [facility] Subjective Sylvia Herrera is a [...] Stress Testing (1 (more content not included)... [facility] 10-28-2023 Note [facility] 08-07-2023 Note [facility] Subjective Sylvia Herrera is a [...] scan. [address] (more content not included)... [facility] 04-08-2023 Hospital Discharge instructions Patient Education [...] improvement. Follow these instructions at home: Take zyhz-[id number]-mjrxgwa and prescription medicines only as told by [...] provider. Document Revised: 05/29/2022 Document Reviewed: 05/29/2022 [employer] Patient Education 2022 [employer] QC. 04/08/2023 08:56:02 Nonspecific Chest Pain, Adult Nonspecific [...] Follow these instructions at home: Medicines Take zxca-[id number]-wgaaycx and prescription medicines only as told by [...] provider. Document Revised: 02/01/2022 Document Reviewed: 02/01/2022 [employer] Patient Education 2022 [employer] Follow Up Care 04/07/2023 21:19:10 With:SCOT ROGERS Address: [facility] [place] [address] [phone] Business (1) When:Within 3 Day(s) [facility] 04-07-2023 Evaluation + Plan note Extrac arianna [...] Troponin 9 Hr. XR Chest Single View [facility]09-01-2022 Miscellaneous Notes* Telephone Encounter - Linden Weems - 08/02/2022 1:41 PM EDT Patient had labs drawn 08/02/22, uploaded to scanned docs. [facility] Miscellaneous Notes* Telephone Encounter - Sho Crowley [...] another team. Sho Crowley APRN, CNP Pager: [phone] July 05, 2022 10:42 AM Post Heart Transplant Nurse Practitioner documented in this encounterC[facility]22 Miscellaneous Notes* Telephone Encounter - Linden Weems - 07/03/2022 12:59 PM EDT Patient had labs drawn 07/03/22, uploaded to scanned docs. documented in this encounterC[facility]22 Miscellaneous Notes* Addendum Note - Loida Mathias [...] uploaded to scanned docs. Linden Weems Administrative Hospice Music Therapist documented in this encounterC[facility] Miscellaneous Notes* Telephone Encounter - Linden Weems - 04/24/2022 1:31 PM EDT Patient left message that she had labs drawn today. Linden Weems Administrative Hospice Music Therapist Post Heart Transplant J3-4 documented in this encounterC[facility]05-11-2022 NoteHNO ID: [id number] Author: Loida Mathias APRN.CNP Service: ? Author [...] reports she can no longer travel to [place]. She does not have a ride, she has no family or friends to lean on. She has made an appt with a local Platform Operations Director. She will ask him if there are any transplant doctors or centers near her and potentially need to transfer her care. She will keep us updated. Loida Mathias APRN.CNP April 12, 2022 2:25 [facility]05-11-2022 History of Present illness Narrative* Loida [...] reports she can no longer travel to [place]. Shedoes not have a ride, she has no family or friends to lean on. She has made an appt with a local Platform Operations Director. She will ask him if there are any transplant doctors or centers near her and potentiallyneed to transfer her care. She will keep us updated. Loida Mathias APRN.CNP April 12, 2022 2:25 PM documented in this encounterC[facility]11-08-2021 NoteHNO ID: [id number] Author: Loida Mathias APRN.CNP Service: ? Author [...] APRN.CNP October 09, 2021 4:10 [facility]11-02-2021 NoteHNO ID: [id number] Author: Nicolette Rice MD Service: ? Author Type: Physician Type: Progress Notes Filed: 10/03/2021 4:12 PM Note Text: Heart, Vascular AND Thoracic [place] Department of Cardiovascular Medicine TELEPHONE VISIT PROGRESS [...] in ~6 months. Will see a local pump servicer at the end of the month. Data [...] of this encounter (statuses as of 04/05/2022) [facility]12-14-2017 History of Past illness Narrative* Problem Noted [...] of this encounter (statuses as of 04/06/2022) [facility]12-14-2017 History of Past illness Narrative* Problem Noted [...] of this encounter (statuses as of 04/12/2022) [facility]12-14-2017 History of Past illness Narrative* Problem Noted [...] of this encounter (statuses as of 04/24/2022) [facility]12-14-2017 History of Past illness Narrative* Problem Noted [...] of this encounter (statuses as of 05/08/2022) [facility]12-14-2017 History of Past illness Narrative* Problem Noted [...] of this encounter (statuses as of 07/03/2022) [facility]12-14-2017 History of Past illness Narrative* Problem Noted [...] of this encounter (statuses as of 07/05/2022) [facility]12-14-2017 History of Past illness Narrative* Problem Noted [...] of this encounter (statuses as of 08/02/2022) [facility]12-14-2017 History of Past illness Narrative* Problem Noted [...] of this encounter (statuses as of 09/11/2022) [facility] Future Appointments Appointment Date:08/01/2022 01:50:00 PM Scheduled Provider: Location:[facility] Appointment Type:Surgery FT Diagnostic Tests Pending * CMV Antibody IgM 07/16/22 Future Scheduled Tests Laboratory* Fecal WBC Lactoferrin 07/12/22 * Giardia lamblia, Direct Detection EIA 07/12/22 * O & P Exam, Routine 07/12/22 * Clostridium difficile by PCR 07/12/22 * Enteric Panel by PCR 07/12/22 [facility] Diagnosis Heart transplanted (HCC) Heart replaced by transplant [facility] Diagnosis Heart replaced by transplant (HCC)- Primary Heart [facility] by [facility] Diagnosis Heart replaced by transplant (HCC)- Primary Heart replaced by transplant Heart transplanted (HCC) Heart replaced by transplant [facility] Diagnosis Heart transplanted (HCC) Heart replaced by transplant [facility] Diagnosis Heart transplanted (HCC) Heart replaced by transplant [facility] noteNo assessment information availableM[facility] Work Phone: Hospital course Narrative No data available for this section [facility] No data available for this section [facility] No data available for this section [facility] Advance Directives No Advanced Directives Records FoundDocuments on File Type Date Recorded Patient Care Trainer Expl anation Advance Directive(s) 11/14/2017 5:44 AM Advance Directive(s) 01/02/2012 12:00 AM Advance Directive(s) 01/17/2007 12:00 AM Documents on File Type Date Recorded Patient Care Trainer Expl anation Advance Directive(s) 01/02/2012 Advance Directive(s) [...] or prosecute any alcohol or drug abuse patient.[facility] the event this information is protected by the Federal Confidentiality of Alcohol and Drug Abuse Patient Records regulations: The Federal rules restrict any use of the information to criminally investigate or prosecute any alcohol or drug abuse patient.[facility] the event this information is protected by the Federal Confidentiality of Alcohol and Drug Abuse Patient Records regulations: The Federal rules restrict any use of the information to criminally investigate or prosecute any alcohol or drug abuse patient.[facility] the event this information is protected by the Federal Confidentiality of Alcohol and Drug Abuse Patient Records regulations: The Federal rules restrict any use of the information to criminally investigate or prosecute any alcohol or drug abuse patient.[facility] the event this information is protected by the Federal Confidentiality of Alcohol and Drug Abuse Patient Records regulations: The Federal rules restrict any use of the information to criminally investigate or prosecute any alcohol or drug abuse patient.[facility] the event this information is protected by the Federal Confidentiality of Alcohol and Drug Abuse Patient Records regulations: The Federal rules restrict any use of the information to criminally investigate or prosecute any alcohol or drug abuse patient.[facility] the event this information is protected by the Federal Confidentiality of Alcohol and Drug Abuse Patient Records regulations: The Federal rules restrict any use of the information to criminally investigate or prosecute any alcohol or drug abuse patient.[facility] the event this information is protected by the Federal Confidentiality of Alcohol and Drug Abuse Patient Records regulations: The Federal rules restrict any use of the information to criminally investigate or prosecute any alcohol or drug abuse patient.[facility] the event this information is protected by the Federal Confidentiality of Alcohol and Drug Abuse Patient Records regulations: The Federal rules restrict any use of the information to criminally investigate or prosecute any alcohol or drug abuse patient.[facility] Reason for Visit (unrecogniz ed section and content) Reason Comments Rx Refills Reason Comments Heart Transplant Follow Up Labs Reason Comments Heart Transplant Follow Up Reason Comments Heart Transplant Follow Up labs Reason Comments Heart Transplant Follow Up Lab Meeting Reason Comments Refill Request Care Teams (unrecognized sec tion and content) Sack Filler Relationship Specialty Start Date End Date Tao Rooney MD [address] [phone] PCP - General Family Practice 05/13/19 Sack Filler Relationship Specialty Start Date End Date Tao Rooney MD [address] [id number] PCP - General Family Practice 05/13/19 Sack Filler Relationship Specialty Start Date End Date Tao Rooney MD [address] [phone] PCP - General Family Practice 05/13/19 Sack Filler Relationship Specialty Start Date End Date Tao Rooney MD [address] [id number] PCP - General Family Practice 05/13/19 Sack Filler Relationship Specialty Start Date End Date Tao Rooney MD [address] [id number] PCP - General Family Practice 05/13/19 Sack Filler Relationship Specialty Start Date End Date Tao Rooney MD [address] [place] [address] PCP - General Family Medicine 05/13/19 Team Status: Inactive Member Role Status Dates NON STAFF Attending Provider Active Start: Padma chavis 2023 End: June 18, 2024 INFORMATION SOURCE (unrecogn ized section and content) DATE CREATED AUTHOR 09/01/2022 [facility] DATE CREATED AUTHOR AUTHOR'S ORGANIZ ATION 03/09/2023 [facility] DATE CREATED AUTHOR AUTHOR'S ORGANIZ ATION 04/08/2023 [facility] DATE CREATED AUTHOR AUTHOR'S ORGANIZ ATION 07/12/2024 [facility] DATE CREATED AUTHOR AUTHOR'S ORGANIZ ATION 07/23/2024 [facility] Goals (unrecognized section and content) Goals [...] BE BASED ON THE PRIMARY CLINICAL RECORDS. [employer] provides no warranty or guarantee of the accuracy or completeness of information in this document.
[2024-09-09 19:07] LABS: Tacrolimus (FK506), Blood 9.2 ng/mL (2.0-20.0)
== END 2024-09-07 09:23 | disposition home or self-care (01) ==
PROVIDERS: PCP Family Medicine; Visit Provider Internal Medicine Interventional Cardiology
DX: Z94.1 Heart transplant status (principal)
CPT/HCPCS: 36415; 80197

== ENCOUNTER 2024-09-25 07:42 | Outpatient (OUT) | payer MEDICARE, SELFPAY ==
--- NOTE | 2024-09-25 07:44 | CA_ITS ---
Patient Name: SYLVIA HANNA MR#: [id number] : 1945 Exam Date: 09/25/2024 Ordering Doctor: DR ANISHA DINH M.D. ECHOCARDIOGRAM REPORT PROCEDURE: CA ECHO DOPPLER COMPLETE INDICATIONS: Dyspnea, S/P heart transplant (2005) COMPARISON: None. DESCRIPTION: COMPLETE ECHOCARDIOGRAM Real-time transthoracic echocardiography with 2D, M-mode, spectral and color flow Doppler performed. QUALITY: Technical quality was good. LEFT VENTRICLE: Normal chamber size. Borderline left ventricular hypertrophy. LV EF: Global left ventricular systolic function is hyperdynamic; visual estimation of left ventricular ejection fraction is 65-70%. DIASTOLIC: Unable to assess diastolic function. ATRIAL SEPTUM: Inadequately seen. LEFT ATRIUM: Enlarged consistent with heart transplant. RIGHT ATRIUM: Enlarged consistent with heart transplant. RIGHT VENTRICLE: Normal chamber size. Normal right ventricular systolic function. TRICUSPID VALVE: Normal mobility and thickness. No stenosis with mild regurgitation. Moderate pulmonary hypertension. RVSP 56mmHg MITRAL VALVE: Normal mobility and thickness. No evidence of mitral valve stenosis. There is no mitral annular calcification. Trivial mitral regurgitation. AORTIC VALVE: Normal trileaflet appearance. No visible sclerosis. Normal leaflet mobility. No evidence of aortic valve stenosis. Mild aortic regurgitation. AORTIC ROOT: Normal diameter and appearance. PULMONIC VALVE: Normal thickness and mobility. No stenosis. Trivial regurgitation. PERICARDIUM: No evidence of pericardial effusion. IVC: Within normal limits. Normal in size with partial collapse. CONCLUSION: 1. Global left ventricular systolic function is hyperdynamic; visually estimated ejection fraction is 65 to 70% 2. Normal right ventricular size and systolic function 3. The atria are enlarged consistent with history of heart transplantation 4. Borderline left ventricular hypertrophy 5. Unable to assess diastolic function 6. Mild tricuspid regurgitation 7. Moderately elevated right ventricular systolic pressure; RVSP 56 mmHg 8. Mild aortic valve regurgitation Adult Echocardiography Procedure Report Left Ventricle LVEDD (3.7 - 5.6 cm): 4.20 cm LVESD (2.2 - 4.0 cm): 2.58 cm LVIVS thickness (0.6 - 1.2 cm): 1.03 cm LVPW thickness (0.5 - 1.0 cm): 0.89 cm e': 0.12 m/s E - e': 11.63 LVOT Max Gradient: 2.48 mm[Hg] LVOT Area (cm2): 0.79 m/s Peak Velocity (LVOT): 0.79 m/s Mean Velocity (LVOT): 0.64 m/s LVOT Diameter 1.88 cm Left Ventricular Ejection Fraction: 73.04 % Left Atrium LA Volume Index (2D A2C): 51.83 ml/m2 Left Atrium Systolic Dimension: 4.25 cm Mitral Valve MV E to A Ratio: 3.11 Mitral Valve A-Wave Peak Velocity: 0.46 m/s Mitral Valve E-Wave Peak Velocity: 1.43 m/s Right Ventricle RV Internal Diastolic Dimension: 3.30 cm Aorta AO Root Diam: 3.12 cm Ascending Ao Diam: 2.65 cm Aortic Valve AoV Area (Peak Chris): 1.69 cm2, 1.69 cm2 AoV Area (VTI): 1.65 cm2, 1.65 cm2 Deceleration [place]: 1.17 m/s2 Pressure Half-Time: 983.11 ms Peak Velocity(Antegrade Flow): 1.29 m/s Peak Gradient(Antegrade Flow): 6.65 mm[Hg] Mean Velocity(Antegrade Flow): 0.93 m/s Mean Gradient(Antegrade Flow): 3.95 mm[Hg] Velocity Time Integral: 34.15 cm Tricuspid Valve Peak Velocity (Regurgitant Flow): 3.10 m/s, 3.31 m/s, 3.46 m/s, 3.24 m/s Pulmonic Valve Mean Gradient: 1.22 mm[Hg], 1.36 mm[Hg] Mean Velocity: 0.50 m/s, 0.54 m/s Peak Velocity: 0.75 m/s Peak Gradient: 2.14 mm[Hg], 2.39 mm[Hg] Right Atrium Right Atrium Systolic Pressure: 41.17 ml, 41.17 ml Dictated by: Michael Nolan M.D. on 09/25/2024 at 16:48 Approved by: Michael Nolan M.D. on 09/25/2024 at 16:51
--- OUTSIDE RECORDS SUMMARY | 2024-09-25 07:45 | XMS_ITS | CCD ---
Author Organization [facility] Care Team Providers Care Chief Lifestyle Officer Name Role Phone Tao Rooney MD Primary Care Provider [phone] SCOT ROGERS Primary Care Physician Tao Rooney MD Primary Care Provider [phone] NICOLETTE RICE Attending UnavailARELIS Rivera Referring Unavailable TAO ROONEY Primary Care Unavailable Tao Rooney MD Primary Care Provider [phone] TORIBIO Sanchez, DR BURGER Primary Care [...] Admitting Unavailable MOFANNY, DR LANCASTER Attending Unavailable SCOT ROGERS Consulting [...] Care Unavailable NANCY BARFIELD Admitting Unavailable JAZLYN DUOBSE Consulting Unavailable AMY Sanchez, NANCY Consulting Unavailable [...] Unavailable HOY ., DR BURGER Attending Unavailable SUMNER, DR JAZLYN Marcelino Consulting Unavailable SCOT ROGERS Consulting Unavailable SCOT ROGERS Admitting Unavailable HOY ., DR BURGER Primary [...] Primary Care Unavailable ADELINE FLORES Consulting Unavailable AHALEXSANDER GOTTI Consulting Unavailable AMY ., NANCY Consulting Unavailable SCOT ROGERS Attending Unavailable HOY ., DR BURGER Primary Care Unavailable SCOT ROGERS Consulting Unavailable SUE SCOT Admitting Unavailable NON STAFF Attending Provider Unavailable NON STAFF Attending Unavailable NON STAFF Admitting Unavailable MOUKAHERMILO, ANISHA Attending Unavailable MOUKARBEL, ANISHA Attending Unavailable MOUKARBEL, ANISHA Attending Unavailable MOUKARBEL, ANISHA Attending Unavailable González Shanks Attending Unavailable Allergies Allergy Classification Reported Allergen(s) Allergy Type Date of Onset Reaction(s) Facility (10 sources) Acetaminophen / oxyCODONE; Translations: [OXYCODONE-ACETAM INOPHEN] Drug Allergy 05-18-20 14 GI Upset [facility] Work Phone: (11 sources) Promethazine; Translations: [PROMETHAZINE HCL] Drug Allergy 10-11-20 05 Other: See Comments [facility] (3 sources) Levamisole; Translations: [Phenergan] Drug Allergy 04-07-20 13 [facility] Repository (1 source) Morphine Drug Allergy [facility] Repository (2 sources) Promethazine; Translations: [promethazine] Drug Allergy 08-12-20 22 Loss of consciousness (finding) [facility] (1 source) No Known Medication Allergies; Translations: [No Known Medication Allergies] Propensity to adverse reactions (disorder) [facility] Repository Medications Current Medications Medication Drug Class(es) Dates Sig (Normalized) Sig (Original) alendronic acid 70 mg oral tablet (11 sources) Bisphosphonate Start: 01-07-2014 take 1 mg by mouth every week Fosamax 70 mg oral tablet mg tab(s), Oral, qWeek, Refills(s) 0 Start Date: 07/10/22 Status: Ordered Comment on above: Take 1 tablet by bettina th once each week. in the morning with [...] Start: 07-05-2022 take 1 capsule by mo ut once daily tacrolimus IR (PROGRAF) 0.5 mg capsule Indications: Heart transplanted (HCC) Take 1 capsule by mouth once daily. 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 No Dr oDn 0 07/05/2022 Active Start: 05-08-2022 End: 07-05-2022 [...] on above: Take 2 capsules by m out once daily. Problems Active Problems Problem Classification [...] 04-08-2023 Episodic Other aftercare (1 source) Other bed bug exterminator (current) drug therapy; Translations: [OTH PRISON CURRENT DRUG THERAPY] Onset: 02-18-2023 Episodic Other circulatory disease (7 sources) Heart transplant status; Translations: [HEART TRANSPLANT STATUS] Onset: 08-12-2022 Chronic Other diseases of kidney and ureters (2 sources) Kidney disease 07-10-2022 Episodic Other lower respiratory disease (2 sources) Shortness of breath; Translations: [Shortness of breath] Onset: 09-14-2024 Episodic Pancreatic disorders (not diabetes) (1 source) [...] Onset: 08-04-2022 Episodic Other aftercare (1 source) intermediate (current) use of aspirin; Translations: [WHOLESALE AGRONOMIST CURRENT USE OF ASPIRIN] Onset: 08-08-2022 Episodic [...] Value Interpretation Reference Range Facility Office Visiton 09-14-2024 Follow-up visit [id number] Sylvia Herrera 1945 F Date Provider Department Center 09/14/2024 ANISHA JACOBS JULIAN Hernandez Family History Family history unknown: Yes Level of Service:16359 DE OFFICE/OUTPATIENT ESTABLISHED MOD MDM 30 MIN Normal [facility] 36on 07-22-2024 36 Patient made aware. I sent her tacrolimus order in the mail for her to have done at [facility] 1 week prior to seeing Dr. Daly for follow up on 09/14/2024. She verbalized understanding. [facility] 36on 07-21-2024 36 Regarding tacrolimus level drawn on 07/07/2024: MD Kaela Smith MA Did she have the echo? Her tacrolimus level is slightly high. I want a repeat in 2 months. *Dr. 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 Will you review this and then I will call Sylvia. Thanks. [facility] Office Visiton 07-01-2024 Follow-up visit [id number] BrantleySylvia 1945 F Date Provider Department Center 07/01/2024 Kirk-ANISHA DALY JULIAN Hernandez Family History Family history unknown: Yes Level of Service:32874 DE OFFICE/OUTPATIENT ESTABLISHED MOD MDM 30 MIN [facility] Activated partial thrombopla stin time (aPTT) in platelet poor plasma by coagulation aOrdered By: NON STAFF on 06-18-2024 aPTT Coag (PPP) [Time] 31.8 s 25.1-36.5 [facility] Comment on above: A hematocrit value g reater than 55% may lead to inaccurate results in coagulation testing. Patients having hematocrit values >55% require a special collection tube for coagulation studies. Please contact the laboratory at [phone] for redraw instructions. INR in Platelet poor plasma by Coagulation assayOrdered By: NON STAFF on 06-18-2024 INR Coag (PPP) [Relative time] 1.3 {INR} [facility] Comment on above: INR Therapeutic Rang [...] Performed By: #### P TT, PT #### [place] [id number] [facility] Partial Thromboplastin Timeo n 06-18-2024 aPTT Coag (Bld) [Time] 31.8 s Normal 25.1-36.5 [facility] Comment on above: Result Comment: A he matocrit value greater than 55% may lead to inaccurate results in coagulation testing. Patients having hematocrit values >55% require a special collection tube for coagulation studies. Please contact the laboratory at [phone] for redraw instructions. PERFORMED BY: [place] [address] PATHOLOGIST RESIDUE FURNACE OPERATOR ANDREIA ARRINGTON M.D. Performed By: #### P TT, PT #### [place] [id number] [facility] Prothrombin time (PT)Ordered By: NON STAFF on 06-18-2024 PT Coag (PPP) [Time] 14.4 s High 9.0-12.9 [facility] Comment on above: A hematocrit value g reater than 55% may lead to inaccurate results in coagulation testing. Patients having hematocrit values >55% require a special collection tube for coagulation studies. Please contact the laboratory at [phone] for redraw instructions. Result Comment: A he matocrit value greater than 55% may lead to inaccurate results in coagulation testing. Patients having hematocrit values >55% require a special collection tube for coagulation studies. Please contact the laboratory at [phone] for redraw instructions. Performed By: #### P TT, PT #### [place] [id number] [facility] 36on 04-06-2024 36 I reviewed the blood [...] monthly labs as ordered at last visit. [facility] Telephoneon 04-06-2024 Telephone [id number] Sylvia Herrera 1945 Provider Department Center 04/06/2024 ANISHA JACOBS Family History Family history unknown: Yes [facility] Orders Onlyon 03-18-2024 Orders Only [id number] Sylvia Herrera Erin 1945 Provider Department [facility] Family History Family history unknown: Yes [facility] Office Visiton 02-03-2024 Follow-up visit [id number] Miguel Herrerablayne Khan 1945 Provider Department Center 02/03/2024 ANISHA JACOBS Family History Family history unknown: Yes Level of Service:55365 DE OFFICE/OUTPATIENT ESTABLISHED MOD MDM 30 MIN [facility] Office Visiton 11-12-2023 Follow-up visit [id number] Sylvia Herrera Erin 1945 Provider Department Center 11/12/2023 ANISHA JACOBS Family History Family history unknown: Yes Level of Service:68233 DE OFFICE/OUTPATIENT ESTABLISHED MOD MDM 30-39 MIN [facility] 36on 10-26-2023 36 Her tacrolimus level from 10/16/2023 was 1.4. still very low. I believe she is currently taking tacrolimus (Prograf) 0.5 mg bid. I want her to increase to 1 mg bid and obtain another trough level in 2-3 weeks. [facility] Telephoneon 10-26-2023 Telephone [id number] Sylvia Herrera Erin 1945 Provider Department Center 10/26/2023 ANISHA JACOBS Family History Family history unknown: Yes [facility] Orders Onlyon 09-30-2023 Orders Only [id number] Sylvia Herrera Erin 1945 F Date Provider Department Center 09/30/2023 Paresh8-KAELA TURNER [facility] Family History Family history unknown: Yes Normal [facility] CHEMISTRYOrdered By: SYSTEM SYSTEM on 04-08-2023 Anion gap [Moles/Vol] 11 mmol/L Normal 6 - 16 mEq/L [facility] Calcium [Mass/Vol] 8.6 mg/dL Low 8.9 - 11. 1 mg/dL [facility] Chloride [Moles/Vol] 99 mmol/L Low 101 - 1 11 mmol/L [facility] CO2 [Moles/Vol] 25 mmol/L Normal 21 - 31 mmol/L [facility] Creatinine [Mass/Vol] 1.3 mg/dL Normal 0.5 - 1.3 mg/dL [facility] Remisol GFR/1.73 sq M.predicted among non-blacks MDRD (S/P/Bld) [Vol rate/Area] 42 mL/min/1.73 m2 Low >=59mL/min/ 1.73 m2 [facility] Chem S Glucose [Mass/Vol] 124 mg/dL Normal 55 - 199 mg/dL [facility] Potassium [Moles/Vol] 4.1 mmol/L Normal 3.5 - 5.3 mmol/L [facility] Sodium [Moles/Vol] 131 mmol/L Low 135 - 145 mmol/L [facility] Troponin I.cardiac [Mass/Vol] 11.10 pg/mL Normal 10.10 - 27.10 pg/mL [facility] Urea nitrogen [Mass/Vol] 36 mg/dL High 5 - 21 mg/dL [facility] Urea nitrogen/Creatinine [Mass ratio] 28 mg/mg High 10 - 20 [facility] Troponin I.cardiac [Mass/Vol] 9.70 pg/mL Low 10.10 - 27.10 pg/mL [facility] CHEMISTRYOrdered By: SYSTEM SYSTEM on 04-07-2023 Anion gap [Moles/Vol] 11 mmol/L Normal 6 - 16 mEq/L [facility] Calcium [Mass/Vol] 8.6 mg/dL Low 8.9 - 11. 1 mg/dL [facility] Chloride [Moles/Vol] 96 mmol/L Low 101 - 1 11 mmol/L [facility] Remisol CO2 [Moles/Vol] 24 mmol/L Normal 21 - 31 mmol/L [facility] Creatinine [Mass/Vol] 1.5 mg/dL High 0.5 - 1.3 mg/dL [facility] GFR/1.73 sq M.predicted among non-blacks MDRD (S/P/Bld) [Vol rate/Area] 35 mL/min/1.73 m2 Low >=59mL/min/ 1.73 m2 [facility] Chem S Glucose [Mass/Vol] 139 mg/dL Normal [...] 7.3 E9/L Normal 4.0 - 11.0 E9/L [facility] HemeAutoSS INFLUENZA A AND B AGon 03-05 INFLUANEGH SEE BELOW Normal [facility] Comment on above: Result Comment: Nega tive for Flu A protein angiten. Infection due to Flu A cannot be ruled out. Flu A angiten in the sample may be below the detection limit of the test. Performed By: #### E RUR #### [facility] [address] [place] [address] Dr. Hardeep Rivera INFLUBNEGH SEE BELOW Normal [facility] Comment on above: Result Comment: Nega tive for Flu B protein antigen. Infection due to Flu B cannot be ruled out. Flu B antigen in the sample may be below the detection limit of the test. Performed By: #### E RUR #### [facility] [address] [place] [address] Dr. Hardeep Rivera INFLUENZA A AG Negative Normal NEGATIVE SEE COMMENT [facility] Comment on above: Performed By: #### E RUR #### [facility] [address] [place] [address] Dr. Hardeep Rivera INFLUENZA B AG Negative Normal NEGATIVE SEE COMMENT [facility] Comment on above: Performed By: #### E RUR #### [facility] [address] [place] [address] Dr. Hardeep Rivera SYMPTOMATIC COVID-19 ANTIGEN on 03-05-2023 EUA Statement SEE BELOW Normal [facility] Comment on above: Result Comment: This [...] sooner. Performed By: #### C VDAGS ####[facility] [id number] [place] [id number] Rivera SARS-CoV-2 (COVID-19) RNA ULICES+probe Ql (Unsp spec) Positive Abnormal NEGATIVE [facility] Comment on above: Performed By: #### C VDAGS ####[facility] [id number] [place] [id number] Rivera FK506 (TACROLIMUS) WHOLE BLO ODon 02-28-2023 Tacrolimus (FK506), Blood 5.8 ng/mL Normal 2.0-20.0 [facility] Comment on above: Result Comment: Trou gh (immediately following transplant) 15.0 . Trough (steady state, 2 weeks or more after transplant): 3.0 - 8.0 . Performed by LC-MS/MS technology. Performed By: #### F K506T ####[facility] [address] [place], [place] [address]Dr. Hardeep Rivera CBC AUTO DIFFon 02-14-2023 BASO # 0.0 103/ul Normal 0.0-0.1 [facility] Comment on above: Performed By: #### RANDALL OLSON #### [facility] [address] [place] [address] Dr. Hardeep Rivera Basophils/100 WBC (Bld) 0.5 % Normal 0.2-2.0 [facility] Comment on above: Performed By: #### RANDALL OLSON #### [facility] [address] [place] [address] Dr. Hardeep Rivera EO # 0.2 103/ul Normal 0.0-0.7 [facility] Comment on above: Performed By: #### RANDALL OLSON #### [facility] [address] [place] [address] Dr. Hardeep Rivera Eosinophils/100 WBC (Bld) 3.5 % Normal 0.9-7.0 [facility] Comment on above: Performed By: #### RANDALL OLSON #### [facility] [address] [place] [address] Dr. Hardeep Rivera Erythrocyte distribution width (RBC) [Ratio] 12.3 % Normal 11.0-15.0 [facility] Comment on above: Performed By: #### Deedee PINON UMICRO #### [facility] [address] [place] [address] Dr. Hardeep Rivera Hematocrit (Bld) [Volume fraction] 38.7 % Normal 36.0-48.0 [facility] Comment on above: Performed By: #### Deedee PINON UMICRO #### [facility] [address] [place] [address] Dr. Hardeep Rivera Hemoglobin (Bld) [Mass/Vol] 12.6 g/dL Normal 12.0-16.0 [facility] Comment on above: Performed By: #### Deedee PINON UMICRO #### [facility] [address] [place] [address] Dr. Hardeep Rivera IG # 0.03 10e3/ul Normal 0.00-0.03 [facility] Comment on above: Performed By: #### Deedee PINON UMICRO #### [facility] [address] [place] [address] Dr. Hardeep Rivera IG % 0.5 % Normal 0.0-0.5 [facility] Comment on above: Performed By: #### Deedee PINON UMICRO #### [facility] [address] [place] [address] Dr. Hardeep Rivera LYMPH # 0.8 103/ul Critically low 1.2-3.8 [facility] Comment on above: Performed By: #### Deedee PINON UMICRO #### [facility] [address] [place] [address] Dr. Hardeep Rivera Lymphocytes/100 WBC (Bld) 13.2 % Critically low 20.5-60.0 [facility] Comment on above: Performed By: #### Deedee PINON, UMICRO #### [facility] [address] [place] [address] Dr. Hardeep Rivera MANUAL DIFF REQ NO Normal [facility] Comment on above: Performed By: #### HARI OLSONRO #### [facility] [address] [place] [address] Dr. Hardeep Rivera MCH (RBC) [Entitic mass] 28.3 pg Normal 26.7-34.0 [facility] Comment on above: Performed By: #### HARI OLSONRO #### [facility] [address] [place] [address] Dr. Hardeep Rivera MCHC (RBC) [Mass/Vol] 32.6 g/dL Normal 29.9-35.2 [facility] Comment on above: Performed By: #### HARI OLSONRO #### [facility] [address] [place] [address] Dr. Hardeep Rivera MCV (RBC) [Entitic vol] 87.0 fL Normal 81.0-99.0 [facility] Comment on above: Performed By: #### HARI OLSONRO #### [facility] [address] [place] [address] Dr. Hardeep Rivera MONO # 0.8 103/ul Normal 0.3-0.8 [facility] Comment on above: Performed By: #### HARI OLSONRO #### [facility] [address] [place] [address] Dr. Hardeep Rivera Monocytes/100 WBC (Bld) 12.9 % Critically high 1.7-12.0 [facility] Comment on above: Performed By: #### HARI OLSONRO #### [facility] [address] [place] [address] Dr. Hardeep Rivera NEUT # 4.4 103/ul Normal 1.4-6.5 [facility] Comment on above: Performed By: #### HARI OLSONRO #### [facility] [address] [place] [address] Dr. Hardeep Rivera Neutrophils/100 WBC (Bld) 69.4 % Normal 43.0-75.0 [facility] Comment on above: Performed By: #### E RUR, UMICRO #### [facility] [address] [place], [place] [address] Dr. Hardeep Rivera Platelet mean volume (Bld) [Entitic vol] 9.0 fL Critically low 9.5-13.5 [facility] Comment on above: Performed By: #### E KATHRIN, UMICRO #### [facility] [address] [place], [place] [address] Dr. Hardeep Rivera PLT 205 103/ul Normal 150-450 [facility] Comment on above: Performed By: #### E KATHRIN, UMICRO #### [facility] [address] [place], [place] [address] Dr. Hardeep Rivera RBC 4.45 106/ul Normal 4.20-5.40 [facility] Comment on above: Performed By: #### E KATHRIN, UMICRO #### [facility] [address] [place] [address] [address] Hardeep Rivera WBC 6.3 103/ul Normal 4.0-11.0 [facility] Comment on above: Performed By: #### Deedee PINON, UMICRO #### [facility] [address] [place], [place] [address] HEAD WO CONon [...] NELSON Date: 2023-02-14 15:46 Normal [facility] ER URINE PROFILEon 3 Bilirubin Ql (U) Negative Normal NEGATIVE [facility] Comment on above: Performed By: #### RANDALL OLSON #### [facility] [address] [place] [address] Dr. Hardeep Rivera Clarity (U) CLEAR Normal CLEAR [facility] Comment on above: Performed By: #### HARI OLSONRO #### [facility] [address] [place] [address] Dr. Hardeep Rivera Color (U) LT. YELLOW Normal YELLOW [facility] Comment on above: Performed By: #### HARI OLSONRO #### [facility] [address] [place] [address] Dr. Hardeep Rivera ERUAHD A micrscopic examina tion will be performed if indicated. Normal [facility] Comment on above: Performed By: #### HARI OLSONRO #### [facility] [address] [place] [address] Dr. Hardeep Rivera Glucose Ql (U) Negative Normal NEGATIVE [facility] Comment on above: Performed By: #### HARI OLSONRO #### [facility] [address] [place] [address] Dr. Hardeep Rivera Hemoglobin Ql (U) TRACE-INTACT Abnormal NEGATIVE [facility] Comment on above: Performed By: #### HARI OLSONRO #### [facility] [address] [place] [address] Dr. Hardeep Rivera Ketones Ql (U) Negative Normal NEGATIVE [facility] Comment on above: Performed By: #### HARI OLSONRO #### [facility] [address] [place] [address] Dr. Hardeep Rivera LEUKOCYTES Negative Normal NEGATIVE [facility] Comment on above: Performed By: #### Deedee PINON, UMICRO #### [facility] [address] [place] [address] [address] Hardeep Rivera Nitrite Ql (U) Negative Normal NEGATIVE [facility] Comment on above: Performed By: #### E KATHRIN, UMICRO #### [facility] [address] [place] [address] [address] Hardeep Rivera pH (U) 7.0 [pH] Normal 5-9 [facility] Comment on above: Performed By: #### Deedee PINON, UMICRO #### [facility] [address] [place] [address] [address] Hardeep Rivera Protein (U) [Mass/Vol] 30 mg/dL Abnormal NEGATIVE/ TRACE [facility] Comment on above: Performed By: #### Deedee PINON, UMICRO #### [facility] [address] [place] [address] [address] Hardeep Rivera SPEC GRAVITY 1.010 Normal 1.005-<=1.[address] [place] [address] Comment on above: Performed By: #### Deedee PINON UMICRO #### [facility] [address] [place] [address] [address] Hardeep Rivera UR MICRO IND INDICATED Normal [facility] Comment on above: Performed By: #### Deedee PINON, UMICRO #### [facility] [address] [place] [address] [address] Hardeep Rivera Urobilinogen Qn (U) 0.2 {Kevon'U}/dL Normal 0.2 - 1. 0 [facility] Comment on above: Performed By: #### Deedee PINON UMICRO #### [facility] [address] [place] [address] [address] Hardeep Rivera PROF 14(COMP METB)on 023 Albumin [Mass/Vol] 3.5 g/dL Normal 3.4-5.0 [facility] Comment on above: Performed By: #### H STROPN, CMP, TSH ####[facility] [id number] [place] [address]Dr. Hardeep Rivera Albumin/Globulin [Mass ratio] 1.2 {ratio} Normal [facility] Comment on above: Performed By: #### H TYLER CMP, TSH ####[facility] [address] [place] [address]Dr. Hardeep Rivera ALP [Catalytic activity/Vol] 153 U/L Critically high 46-116 [facility] Comment on above: Performed By: #### H TYLER CMP, TSH ####[facility] [address] [place] [address]Dr. Hardeep Rivera ALT [Catalytic activity/Vol] 21 U/L Normal 14-59 [facility] Comment on above: Performed By: #### H TYLER CMP, TSH ####[facility] [id number] [place] [address]Dr. Hardeep Rivera Anion gap [Moles/Vol] 9.3 mmol/L Normal [facility] Comment on above: Performed By: #### H TYLER CMP, TSH ####[facility] [address] [place] [address]Dr. Hardeep Rivera AST [Catalytic activity/Vol] 23 U/L Normal 15-37 [facility] Comment on above: Performed By: #### H TYLER CMP, TSH ####[facility] [address] [place] [address]Dr. Hardeep Rivera Bilirubin [Mass/Vol] 0.6 mg/dL Normal 0.2-1.0 [facility] Comment on above: Performed By: #### H TYLER CMP, TSH ####[facility] [address]rgh[address] [place] [address]Dr. Hardeep Rivera Calcium [Mass/Vol] 8.4 mg/dL Critically low 8.5-10.1 [facility] Comment on above: Performed By: #### H STRONATHANIEL CMP, TSH ####[facility] Cvnqmodckj[address] [place] [address]Dr. Preethiarabella Rivera Chloride [Moles/Vol] 96 mmol/L Critically low 98-107 [facility] Comment on above: Performed By: #### H STRONATHANIEL CMP, TSH ####[facility] Ttfdljsbpg[address] [place] [address]Dr. Hardeep Rivera CO2 [Moles/Vol] 29.3 mmol/L Normal 21.0-32.0 [facility] Comment on above: Performed By: #### H STROPN, CMP, TSH ####[facility] Hjhqaquvgd[address] [place] [address]Dr. Hardeep Rivera Creatinine [Mass/Vol] 1.16 mg/dL Critically high 0.55-1.02 [facility] Comment on above: Performed By: #### H STROPN, CMP, TSH ####[facility] Czmlryfugv[address] [place] [address]Dr. Hardeep Rivera EGFR-AF WALLISIAN 55 mL/min/1.73m2 Critically low >=60 [facility] Comment on above: Performed By: #### H STROPN, CMP, TSH ####[facility] Ouboerjtyb[address] [place] [address]Dr. Hardeep Rivera EGFR-NON AF WALLISIAN 45 mL/min/1.73m2 Critically low >=60 The [facility] Comment on above: Performed By: #### H STROPN, CMP, TSH ####[facility] Jwnujclimy[address] [place] [address]Dr. Hardeep Rivera Globulin (S) [Mass/Vol] 2.9 g/dL Normal [facility] Comment on above: Performed By: #### H STROPN, CMP, TSH ####[facility] Swddisisnx9[address] [place] [address]Dr. Preethiarabella Miguel Glucose [Mass/Vol] 105 mg/dL Normal 74-106 [facility] Comment on above: Performed By: #### H STROPN, CMP, TSH ####[facility] Ykhtuozzou2664 [place] [address]Dr. Hardeep Rivera Potassium [Moles/Vol] 4.6 mmol/L Normal 3.5-5.1 [facility] Comment on above: Performed By: #### H STROPN, CMP, TSH ####[facility] Luggafnabf[address] [place] [address]Dr. Hardeep Rivera Protein [Mass/Vol] 6.4 g/dL Normal 6.4-8.2 [facility] Comment on above: Performed By: #### H GLADIS SCOTT, TSH ####[facility] Lxawdfcerm[address] [place] [address]Dr. Hardeep Rivera Sodium [Moles/Vol] 130 mmol/L Critically low 136-145 Th e [facility] Comment on above: Performed By: #### H GLADIS SCOTT, TSH ####[facility] Npcryjlrhp7464 [place] [address]Dr. Hardeep Rivera Urea nitrogen [Mass/Vol] 27.0 mg/dL Critically high 7.0-18.0 [facility] Comment on above: Performed By: #### H GLADIS SCOTT, TSH ####[facility] Qu[address]ys[address] [place], [place] [address]Dr. Hardeep Rivera Urea nitrogen/Creatinine [Mass ratio] 23.3 mg/mg Normal [facility] Comment on above: Performed By: #### Samy SCOTT CMP, TSH ####[facility] Ebufr[address]fnq[address] [place], [place] [address]Dr. Hardeep Rivera PROTIMEon 02-14-2023 INR Coag (PPP) [Relative time] 1.07 {INR} Normal [facility] Comment on above: Performed By: #### P T, PTT ####[facility] Berhiditpt[address] [place], [place] [address]Dr. Hardeep Rivera INR GUIDELINES SEE BELOW Normal [facility] Comment on above: Result Comment: EDMUND RED INR: 2.0 - 3.0 CONDITIONS NOT LISTED BELOW 2.5 - 3.5 FOR PROSTHETIC HEART VALVE REPLACEMENT 2.5 - 3.5 RECURRENT THROMBOSIS Performed By: #### P T, PTT ####[facility] Qevsnuqrpq[address] [place], [place] [address]Dr. Hardeep Rivera PT Coag (PPP) [Time] 11.3 s Normal 9.0-11.6 [facility] Comment on above: Performed By: #### P T, PTT ####[facility] Fsdkbjlutl[address] [place], [place] [address]Dr. Hardeep Rivera PTTon 02-14-2023 aPTT Coag (Bld) [Time] 29.1 s Normal 22.3-36.2 The [facility] Comment on above: Performed By: #### P T, PTT ####[facility] Riqhrfdpqz67[address] [place] [address]Dr. Hardeep Rivera TROPONIN, HIGH SENSITIVITYon 02-14-2023 HSTROP 10.4 pg/mL Normal 4.0-51.3 The [facility] Comment on above: Result Comment: CUT- OFF POINTS HAVE BEEN ESTABLISHED BASED ON THE FOURTH UNIVERSAL DEFINITIONS OF MYOCARDIAL INFARCTION. THE UPPER REFERENCE LIMIT (URL) OF TROPONIN, DEFINED THE 99TH PERCENTILE OF cTnI DISTRIBUTION IN A REFERENCE POPULATION, HAS BEEN CONFIRMED THE DECISION THRESHOLD FOR OK DIAGNOSIS. Performed By: #### H GLADIS SCOTT, TSH ####[facility] Isaowdafxj[address] [place] [address]Dr. Hardeep Rivera TSHon 02-14-2023 TSH 1.237 uIU/mL Normal 0.358-3.740 [facility] Comment on above: Performed By: #### H GLADIS SCOTT, TSH ####[facility] Bmzvidzxkr[address] [place] [address]Dr. Hardeep Rivera URINE MICROSCOPIC ONLYon BACTERIA NONE SEEN Normal NONE SEEN The [facility] Comment on above: Performed By: #### Deedee PINON UMICRO #### [facility] [address] [address] [address] Hardeep Rivera Bacteria identified Cx Nom (U) NOT INDICATED Normal The [facility] Comment on above: Performed By: #### E RUR, UMICRO #### [facility] [address] [place] [address] Dr. Hardeep Rivera CAST NONE SEEN Normal NONE SEEN The [facility] Comment on above: Performed By: #### E COLLINSR, UMICRO #### [facility] [address] [place] [address] Dr. Hardeep Rivera Crystals LM Nom (Urine sed) NONE SEEN Normal NONE SEEN The [facility] Comment on above: Performed By: #### E RUR, UMICRO #### [facility] [address] [address] [address] Hardeep Rivera Epithelial cells LM Ql (Urine sed) NONE SEEN Normal NONE SEEN /RARE The [facility] Comment on above: Performed By: #### E KATHRIN UMICRO #### [facility] [address] [address] [address] Hardeep Rivera MUCOUS NONE SEEN Normal NONE SEEN The [facility] Comment on above: Performed By: #### E KATHRIN UMBENNETTRO #### [facility] [address] [address] [address] Hardeep Rivera RBC 0-2 Normal 0-2 [facility] Comment on above: Performed By: #### E HARI PINONRO #### [facility] [address] [address] [address] Hardeep Rivera WBC NONE SEEN Normal NONE SEEN The [facility] Comment on above: Performed By: #### Deedee PINON UMBENNETTRO #### [facility] [address] [address] [address] Hardeep Rivera XR CHEST 1 Von [...] DUBOSE Date: 2023-02-14 15:50 Normal The [facility] FK506 (TACROLIMUS) WHOLE BLO ODon 02-13-2023 Tacrolimus (FK506), Blood 1.4 ng/mL Critically low 2.0-20.0 The [facility] Comment on above: Result Comment: Trou gh (immediately following transplant) 15.0 . Trough (steady state, 2 weeks or more after transplant): 3.0 - 8.0 . Performed by LC-MS/MS technology. Performed By: #### E RUR #### [facility] [address] [place] [address] Dr. Hardeep Rivera PROF 14(COMP METB)on 03-15-2 023 Albumin [Mass/Vol] 3.5 g/dL Normal 3.4-5.0 [facility] Comment on above: Performed By: #### C MP ####[facility] Zvgqwglujm54[address] [place] [address]Dr. Preethiarabella Miguel Albumin/Globulin [Mass ratio] 1.2 {ratio} Normal [facility] Comment on above: Performed By: #### C MP ####[facility] Pjwmvkyqki15[address] [place] [address]Dr. Hardeep Rivera ALP [Catalytic activity/Vol] 149 U/L Critically high 46-116 [facility] Comment on above: Performed By: #### C MP ####[facility] Ucrog[address]ve[address] [place], [place] [address]Dr. Hardeep Rivera ALT [Catalytic activity/Vol] 19 U/L Normal 14-59 [facility] Comment on above: Performed By: #### C MP ####[facility] Dfvxgfares[address] [place], [place] [address]Dr. Hardeep Rivera Anion gap [Moles/Vol] 11.7 mmol/L Normal [facility] Comment on above: Performed By: #### C MP ####[facility] [address]jry[address]awtf[address] [place], [place] [address]Dr. Hardeep Rivera AST [Catalytic activity/Vol] 27 U/L Normal 15-37 [facility] Comment on above: Performed By: #### C MP ####[facility] Krpccq[address] [place], [place] [address]Dr. Hardeep Rivera Bilirubin [Mass/Vol] 0.6 mg/dL Normal 0.2-1.0 The [facility] Comment on above: Performed By: #### C MP ####[facility] Xsp[address] [place], [place] [address]Dr. Hardeep Rivera Calcium [Mass/Vol] 8.5 mg/dL Normal 8.5-10.1 [facility] Comment on above: Performed By: #### C MP ####[facility] Siocywsoii[address] [place] [address]Dr. Hardeep Rivera Chloride [Moles/Vol] 96 mmol/L Critically low 98-107 [facility] Comment on above: Performed By: #### C MP ####[facility] Dtuvnbygwo[address] [place] [address]Dr. Hardeep Rivera CO2 [Moles/Vol] 28.1 mmol/L Normal 21.0-32.0 [facility] Comment on above: Performed By: #### C MP ####[facility] Wikqdvrodh[address] [place] [address]Dr. Hardeep Miguel Creatinine [Mass/Vol] 1.24 mg/dL Critically high 0.55-1.02 [facility] Comment on above: Performed By: #### C MP ####[facility] Pgwxqbzmio65[address] [place] [address]Dr. Hardeep Miguel EGFR-AF WALLISIAN 51 mL/min/1.73m2 Critically low >=60 [facility] Comment on above: Performed By: #### C MP ####[facility] Zrbzkkknjr[address] [place] [address]Dr. Hardeep Miguel EGFR-NON AF WALLISIAN 42 mL/min/1.73m2 Critically low >=60 [facility] Comment on above: Performed By: #### C MP ####[facility] Zmaxfidsbl[address] [place], [place] [address]Dr. Hardeep Miguel Globulin (S) [Mass/Vol] 3.0 g/dL Normal [facility] Comment on above: Performed By: #### C MP ####[facility] Czdrxqomio[address] [place] [address]Dr. Hardeep Rivera Glucose [Mass/Vol] 141 mg/dL Critically high 74-106 [facility] Comment on above: Performed By: #### C MP ####[facility] [address] [place] [address]Dr. Hardeep Miguel Potassium [Moles/Vol] 4.8 mmol/L Normal 3.5-5.1 [facility] Comment on above: Performed By: #### C MP ####[facility] Pmjkkfnbxo20[address] [place] [address]Dr. Preethiarabella Rivera Protein [Mass/Vol] 6.5 g/dL Normal 6.4-8.2 [facility] Comment on above: Performed By: #### C MP ####[facility] Lpnfsoxhjt5[address] [place] [address]DrLaura Rivera Sodium [Moles/Vol] 131 mmol/L Critically low 136-145 Th [facility] Comment on above: Performed By: #### C MP ####[facility] Vpsqrmtqpt[address] [place] [address]Dr. Hardeep iRvera Urea nitrogen [Mass/Vol] 29.0 mg/dL Critically high 7.0-18.0 [facility] Comment on above: Performed By: #### C MP ####[facility] Ozxzubelwt[address] [place], [place] [address]Dr. Hardeep Rivera Urea nitrogen/Creatinine [Mass ratio] 23.4 mg/mg Normal [facility] Comment on above: Performed By: #### C MP ####[facility] Xewfawggrj[address] [place], [place] [address]DrLaura Rivera BNPon 01-09-2023 Natriuretic peptide B (Bld) [Mass/Vol] 336.0 pg/mL Normal <=1,800.0 [facility] Comment on above: Performed By: #### C MP, TSH, BNP, T7 ####[facility] [address]txu[address] [place], [place] [address]DrLaura Rivera CBC AUTO DIFFon 01-09-2023 BASO # 0.0 103/ul Normal 0.0-0.1 [facility] Comment on above: Performed By: #### C BC #### [facility] [address] [place] [address] Dr. Hardeep Rivera Basophils/100 WBC (Bld) 0.4 % Normal 0.2-2.0 [facility] Comment on above: Performed By: #### C BC #### [facility] [address] [place] [address] Dr. Hardeep Rivera EO # 0.3 103/ul Normal 0.0-0.7 [facility] Comment on above: Performed By: #### C BC #### [facility] [address] [place] [address] Dr. Hardeep Rivera Eosinophils/100 WBC (Bld) 4.4 % Normal 0.9-7.0 [facility] Comment on above: Performed By: #### C BC #### [facility] [address] [place] [address] Dr. Hardeep Rivera Erythrocyte distribution width (RBC) [Ratio] 12.3 % Normal 11.0-15.0 [facility] Comment on above: Performed By: #### C BC #### [facility] [address] [place] [address] Dr. Hardeep Rivera Hematocrit (Bld) [Volume fraction] 43.3 % Normal 36.0-48.0 [facility] Comment on above: Performed By: #### C BC #### [facility] [address] [place] [address] Dr. Hardeep Rivera Hemoglobin (Bld) [Mass/Vol] 13.5 g/dL Normal 12.0-16.0 [facility] Comment on above: Performed By: #### C BC #### [facility] [address] [place] [address] Dr. Hardeep Rivera IG # 0.02 10e3/ul Normal 0.00-0.03 [facility] Comment on above: Performed By: #### C BC #### [facility] [address] [place] [address] Dr. Hardeep Rivera IG % 0.3 % Normal 0.0-0.5 [facility] Comment on above: Performed By: #### C BC #### [facility] [address] [place] [address] Dr. Hardeep Rivera LYMPH # 1.1 103/ul Critically low 1.2-3.8 [facility] Comment on above: Performed By: #### C BC #### [facility] [address] [place] [address] Dr. Hardeep Rivera Lymphocytes/100 WBC (Bld) 16.0 % Critically low 20.5-60.0 [facility] Comment on above: Performed By: #### C BC #### [facility] [address] [place] [address] Dr. Hardeep Rivera MANUAL DIFF REQ NO Normal [facility] Comment on above: Performed By: #### C BC #### [facility] [address] [place] [address] Dr. Hardeep Rivera MCH (RBC) [Entitic mass] 28.4 pg Normal 26.7-34.0 [facility] Comment on above: Performed By: #### C BC #### [facility] [address] [place] [address] Dr. Hardeep Rivera MCHC (RBC) [Mass/Vol] 31.2 g/dL Normal 29.9-35.2 [facility] Comment on above: Performed By: #### C BC #### [facility] [address] [place] [address] Dr. Hardeep Rivera MCV (RBC) [Entitic vol] 91.0 fL Normal 81.0-99.0 [facility] Comment on above: Performed By: #### C BC #### [facility] [address] [place] [address] Dr. Hardeep Rivera MONO # 1.0 103/ul Critically high 0.3-0.8 [facility] Comment on above: Performed By: #### C BC #### [facility] [address] [place] [address] Dr. Hardeep Rivera Monocytes/100 WBC (Bld) 14.7 % Critically high 1.7-12.0 [facility] Comment on above: Performed By: #### C BC #### [facility] [address] [place] [address] Dr. Hardeep Rivera NEUT # 4.4 103/ul Normal 1.4-6.5 [facility] Comment on above: Performed By: #### C BC #### [facility] [address] [place] [address] Dr. Hardeep Rivera Neutrophils/100 WBC (Bld) 64.2 % Normal 43.0-75.0 [facility] Comment on above: Performed By: #### C BC #### [facility] [address] [place] [address] Dr. Hardeep Rivera Platelet mean volume (Bld) [Entitic vol] 9.5 fL Normal 9.5-13.5 [facility] Comment on above: Performed By: #### C BC #### [facility] [address] [address] [address] Hardeep Rivera PLT 238 103/ul Normal 150-450 [facility] Comment on above: Performed By: #### C BC #### [facility] [address] [address] [address] Hardeep Rivera RBC 4.76 106/ul Normal 4.20-5.40 [facility] Comment on above: Performed By: #### C BC #### [facility] [address] [place] [address] Dr. Hardeep Rivera WBC 6.8 103/ul Normal 4.0-11.0 [facility] Comment on above: Performed By: #### C BC #### [facility] [address] [place] [address] Dr. Hardeep Rivera FREE THYROXINE INDEX T7on FTI 3.96 Normal 1.30-4.50 [facility] Comment on above: Performed By: #### C MP, TSH, BNP, T7 ####[facility] [address]omkab[address] [place] [address]Dr. Hardeep Rivera T3U 35.0 % Normal 30.0-39.0 [facility] Comment on above: Performed By: #### C MP, TSH, BNP, T7 ####[facility] [address]ecmo[address] [place] [id number]. Hardeep Rivera T4 [Mass/Vol] 11.30 ug/dL Normal 4.80-13.90 [facility] Comment on above: Performed By: #### C MP, TSH, BNP, T7 ####[facility] [address]ww[address]jow[address] [place] [address]Dr. Hardeep Rivera PROF 14(COMP METB)on 023 Albumin [Mass/Vol] 3.9 g/dL Normal 3.4-5.0 [facility] Comment on above: Performed By: #### C MP, TSH, BNP, T7 ####[facility] [address]akkvldi[address] [place] [address]Dr. Preethiarabella Rivera Albumin/Globulin [Mass ratio] 1.2 {ratio} Normal [facility] Comment on above: Performed By: #### C MP, TSH, BNP, T7 ####[facility] [address]jzhwbayot[address] [place] [address]Dr. Hardeep Rivera ALP [Catalytic activity/Vol] 151 U/L Critically high 46-116 [facility] Comment on above: Performed By: #### C MP, TSH, BNP, T7 ####[facility] [address]wrmmjf[address] [place], [place] [address]Dr. Hardeep Rivera ALT [Catalytic activity/Vol] 30 U/L Normal 14-59 [facility] Comment on above: Performed By: #### C MP, TSH, BNP, T7 ####[facility] [address] [place], [place] [address]Dr. Hardeep Rivera Anion gap [Moles/Vol] 15.6 mmol/L Normal [facility] Comment on above: Performed By: #### C MP, TSH, BNP, T7 ####[facility] [address]ksunxf[address] [place], [place] [address]Dr. Hardeep Rivera AST [Catalytic activity/Vol] 23 U/L Normal 15-37 [facility] Comment on above: Performed By: #### C MP, TSH, BNP, T7 ####[facility] [address]zb[address] [place], [place] [address]Dr. Hardeep Rivera Bilirubin [Mass/Vol] 0.7 mg/dL Normal 0.2-1.0 [facility] Comment on above: Performed By: #### C MP, TSH, BNP, T7 ####[facility] [address] [place], [place] [address]Dr. Hardeep Rivera Calcium [Mass/Vol] 9.0 mg/dL Normal 8.5-10.1 [facility] Comment on above: Performed By: #### C MP, TSH, BNP, T7 ####[facility] [address] [place], [place] [address]Dr. Hardeep Rivera Chloride [Moles/Vol] 97 mmol/L Critically low 98-107 [facility] Comment on above: Performed By: #### C MP, TSH, BNP, T7 ####[facility] [address]gcoymuzi[address] [place] [address]Dr. Hardeep Rivera CO2 [Moles/Vol] 26.1 mmol/L Normal 21.0-32.0 [facility] Comment on above: Performed By: #### C MP, TSH, BNP, T7 ####[facility] Ajqfntoxnd[address] [place] [address]Dr. Hardeep Rivera Creatinine [Mass/Vol] 1.78 mg/dL Critically high 0.55-1.02 [facility] Comment on above: Performed By: #### C MP, TSH, BNP, T7 ####[facility] Kktnpckxgk[address] [place] [address]Dr. Hardeep Rivera EGFR-AF WALLISIAN 33 mL/min/1.73m2 Critically low >=60 [facility] Comment on above: Performed By: #### C MP, TSH, BNP, T7 ####[facility] [address]zu[address] [place], [place] [address]Dr. Hardeep Rivera EGFR-NON AF WALLISIAN 28 mL/min/1.73m2 Critically low >=60 [facility] Comment on above: Performed By: #### C MP, TSH, BNP, T7 ####[facility] [address] [place] [address]Dr. Hardeep Rivera Globulin (S) [Mass/Vol] 3.3 g/dL Normal [facility] Comment on above: Performed By: #### C MP, TSH, BNP, T7 ####[facility] Rrmwhzvrab[address] [place] [address]Dr. Hardeep Rivera Glucose [Mass/Vol] 127 mg/dL Critically high 74-106 [facility] Comment on above: Performed By: #### C MP, TSH, BNP, T7 ####[facility] [address]klsrttx[address] [place] [address]Dr. Hardeep Rivera Potassium [Moles/Vol] 3.7 mmol/L Normal 3.5-5.1 [facility] Comment on above: Performed By: #### C MP, TSH, BNP, T7 ####[facility] [address]qnbiea[address] [place] [address]Dr. Hardeep Rivera Protein [Mass/Vol] 7.2 g/dL Normal 6.4-8.2 [facility] Comment on above: Performed By: #### C MP, TSH, BNP, T7 ####[facility] [address]vmvcy[address] [place] [address]Dr. Hardeep Rivera Sodium [Moles/Vol] 135 mmol/L Critically low 136-145 [facility] Comment on above: Performed By: #### C MP, TSH, BNP, T7 ####[facility] [address]ssad[address] [place] [address]Dr. Hardeep Rivera Urea nitrogen [Mass/Vol] 54.0 mg/dL Critically high 7.0-18.0 [facility] Comment on above: Performed By: #### C MP, TSH, BNP, T7 ####[facility] [address]ps[address]xy[address]ja[address] [place] [address]Dr. Hardeep Rivera Urea nitrogen/Creatinine [Mass ratio] 30.3 mg/mg Normal [facility] Comment on above: Performed By: #### C MP, TSH, BNP, T7 ####[facility] O[address]roxjug[address] [place] [address]Dr. Hardeep Rivera TSHon 01-09-2023 TSH 1.097 uIU/mL Normal 0.358-3.740 [facility] Comment on above: Performed By: #### C MP, TSH, BNP, T7 ####[facility] [address]ocuv[address] [place] [address]Dr. Hardeep Rivera ECHOCARDIO M/2D COMPLETEon 0 12-13-2022 ECHOCARDIO M/2D COMPLETE Patient: SYLVIA HERRERA Exam Date: 12/13/2022 : 1945 Gender:F Ordering : [facility] Admission #: [id number] Family : Order #: [id number] CLICK HERE TO VIEW EXAM ECHOCARDIOGRAM REPORT [...] Area (VTI): 2.23 cm2, 2.23 cm2 Deceleration [place]: 1.44 m/s2 Pressure Half-Time: 850.98 ms Peak [...] Nolan M.D. on 12/14/2022 at 13:49 Normal [facility] US ALAN DOP LEG BILon 023 [...] FOSTER Date: 2022-12-13 10:51 Normal [facility] BNPon 12-11-2022 Natriuretic peptide B (Bld) [Mass/Vol] 457.0 pg/mL Normal <=1,800.0 [facility] Comment on above: Performed By: #### RANDALL OLSON #### [facility] [address] [place] [address] Dr. Hardeep Rivera CBC AUTO DIFFon 12-11-2022 BASO # 0.0 103/ul Normal 0.0-0.1 [facility] Comment on above: Performed By: #### RANDALL OLSON #### [facility] [address] [place] [address] Dr. Hardeep Rivera Basophils/100 WBC (Bld) 0.4 % Normal 0.2-2.0 [facility] Comment on above: Performed By: #### RANDALL OLSON #### [facility] [address] [place] [address] Dr. Hardeep Rivera EO # 0.2 103/ul Normal 0.0-0.7 [facility] Comment on above: Performed By: #### RANDALL OLSON #### [facility] [address] [place] [address] Dr. Hardeep Rivera Eosinophils/100 WBC (Bld) 2.7 % Normal 0.9-7.0 [facility] Comment on above: Performed By: #### RANDALL OLSON #### [facility] [address] [place] [address] Dr. Hardeep Rivera Erythrocyte distribution width (RBC) [Ratio] 11.9 % Normal 11.0-15.0 [facility] Comment on above: Performed By: #### RANDALL OLSON #### [facility] [address] [place] [address] Dr. Hardeep Rivera Hematocrit (Bld) [Volume fraction] 40.2 % Normal 36.0-48.0 [facility] Comment on above: Performed By: #### E RUR, UMICRO #### [facility] [address] [address] [address] Hardeep Rivera Hemoglobin (Bld) [Mass/Vol] 13.5 g/dL Normal 12.0-16.0 [facility] Comment on above: Performed By: #### E RUR, UMICRO #### [facility] [address] [place] [address] Dr. Hardeep Rivera IG # 0.03 10e3/ul Normal 0.00-0.03 [facility] Comment on above: Performed By: #### E RUR, UMICRO #### [facility] [address] [place] [address] Dr. Hardeep Rivera IG % 0.4 % Normal 0.0-0.5 [facility] Comment on above: Performed By: #### E RUR, UMICRO #### [facility] [address] [place] [address] Dr. Hardeep Rivera LYMPH # 0.9 103/ul Critically low 1.2-3.8 [facility] Comment on above: Performed By: #### E RUR, UMICRO #### [facility] [address] [place] [address] Dr. Hardeep Rivera Lymphocytes/100 WBC (Bld) 11.3 % Critically low 20.5-60.0 [facility] Comment on above: Performed By: #### E RUR, UMICRO #### [facility] [address] [place] [address] Dr. Hardeep Rivera MANUAL DIFF REQ NO Normal [facility] Comment on above: Performed By: #### E RUR, UMICRO #### [facility] [address] [place] [address] Dr. Hardeep Rivera MCH (RBC) [Entitic mass] 28.4 pg Normal 26.7-34.0 [facility] Comment on above: Performed By: #### E RUR, UMICRO #### [facility] [address] [place] [address] Dr. Hardeep Rivera MCHC (RBC) [Mass/Vol] 33.6 g/dL Normal 29.9-35.2 [facility] Comment on above: Performed By: #### HARI OLSONRO #### [facility] [address] [place] [address] Dr. Hardeep Rivera MCV (RBC) [Entitic vol] 84.5 fL Normal 81.0-99.0 [facility] Comment on above: Performed By: #### HARI OLSONRO #### [facility] [address] [place] [address] Dr. Hardeep Rivera MONO # 1.0 103/ul Critically high 0.3-0.8 [facility] Comment on above: Performed By: #### HARI OLSONRO #### [facility] [address] [place] [address] Dr. Hardeep Rivera Monocytes/100 WBC (Bld) 12.5 % Critically high 1.7-12.0 [facility] Comment on above: Performed By: #### HARI OLSONRO #### [facility] [address] [place] [address] Dr. Hardeep Rivera NEUT # 5.9 103/ul Normal 1.4-6.5 [facility] Comment on above: Performed By: #### HARI OLSONRO #### [facility] [address] [place] [address] Dr. Hardeep Rivera Neutrophils/100 WBC (Bld) 72.7 % Normal 43.0-75.0 [facility] Comment on above: Performed By: #### HARI OLSONRO #### [facility] [address] [place] [address] Dr. Hardeep Rivera Platelet mean volume (Bld) [Entitic vol] 8.6 fL Critically low 9.5-13.5 [facility] Comment on above: Performed By: #### HARI OLSONRO #### [facility] [address] [place] [address] Dr. Hardeep Rivera PLT 226 103/ul Normal 150-450 [facility] Comment on above: Performed By: #### HARI OLSONRO #### [facility] [address] [place] [address] Dr. Hardeep Rivera RBC 4.76 106/ul Normal 4.20-5.40 [facility] Comment on above: Performed By: #### HARI OLSONRO #### [facility] [address] [place] [address] Dr. Hardeep Rivera WBC 8.2 103/ul Normal 4.0-11.0 [facility] Comment on above: Performed By: #### Deedee PINON UMICRO #### [facility] [address] [place] [address] Dr. Hardeep Rivera FREE THYROXINE INDEX T7on FTI 3.40 Normal 1.30-4.50 [facility] Comment on above: Performed By: #### AKSHAT OLSONICRO #### [facility] [address] [place] [address] Dr. Hardeep Rivera T3U 34.0 % Normal 30.0-39.0 [facility] Comment on above: Performed By: #### AKSHAT OLSONICRO #### [facility] [address] [place] [address] Dr. Hardeep Rivera T4 [Mass/Vol] 10.00 ug/dL Normal 4.80-13.90 [facility] Comment on above: Performed By: #### AKSHAT OLSONICRO #### [facility] [address] [place] [address] Dr. Hardeep Rivera PROF 14(COMP METB)on 023 Albumin [Mass/Vol] 3.8 g/dL Normal 3.4-5.0 [facility] Comment on above: Performed By: #### Deedee PINON UMICRO #### [facility] [address] [place] [address] Dr. Hardeep Rivera Albumin/Globulin [Mass ratio] 1.1 {ratio} Normal [facility] Comment on above: Performed By: #### Deedee PINON UMICRO #### [facility] [address] [place] [address] Dr. Hardeep Rivera ALP [Catalytic activity/Vol] 192 U/L Critically high 46-116 [facility] Comment on above: Performed By: #### RANDALL OLSON #### [facility] [address] [place] [address] Dr. Hardeep Rivera ALT [Catalytic activity/Vol] 22 U/L Normal 14-59 [facility] Comment on above: Performed By: #### RANDALL OLSON #### [facility] [address] [place] [address] Dr. Hardeep Rivera Anion gap [Moles/Vol] 11.4 mmol/L Normal [facility] Comment on above: Performed By: #### RANDALL OLSON #### [facility] [address] [place] [address] Dr. Hardeep Rivera AST [Catalytic activity/Vol] 22 U/L Normal 15-37 [facility] Comment on above: Performed By: #### RANDALL OLSON #### [facility] [address] [place] [address] Dr. Hardeep Rivera Bilirubin [Mass/Vol] 0.5 mg/dL Normal 0.2-1.0 [facility] Comment on above: Performed By: #### RANDALL OLSON #### [facility] [address] [place] [address] Dr. Hardeep Rivera Calcium [Mass/Vol] 9.1 mg/dL Normal 8.5-10.1 [facility] Comment on above: Performed By: #### RANDALL OLSON #### [facility] [address] [place] [address] Dr. Hardeep Rivera Chloride [Moles/Vol] 93 mmol/L Critically low 98-107 [facility] Comment on above: Performed By: #### HARI OLSONRO #### [facility] [address] [place] [address] Dr. Hardeep Rivera CO2 [Moles/Vol] 30.8 mmol/L Normal 21.0-32.0 [facility] Comment on above: Performed By: #### HARI OLSONRO #### [facility] [address] [address] [address] Hardeep Rivera Creatinine [Mass/Vol] 1.49 mg/dL Critically high 0.55-1.02 [facility] Comment on above: Performed By: #### E KATHRIN, UMICRO #### [facility] [address] [address] [address] Hardeep Rivera EGFR-AF WALLISIAN 41 mL/min/1.73m2 Critically low >=60 [facility] Comment on above: Performed By: #### E COLLINSR, UMICRO #### [facility] [address] [address] [address] Hardeep Rivera EGFR-NON AF WALLISIAN 34 mL/min/1.73m2 Critically low >=60 [facility] Comment on above: Performed By: #### E KATHRIN, UMICRO #### [facility] [address] [place] [address] Dr. Hardeep Rivera Globulin (S) [Mass/Vol] 3.4 g/dL Normal [facility] Comment on above: Performed By: #### Deedee PINON, UMICRO #### [facility] [address] [address] [address] Hardeep Rivera Glucose [Mass/Vol] 116 mg/dL Critically high 74-106 [facility] Comment on above: Performed By: #### E KATHRIN, UMICRO #### [facility] [address] [address] [address] Hardeep Rivera Potassium [Moles/Vol] 4.2 mmol/L Normal 3.5-5.1 [facility] Comment on above: Performed By: #### Deedee GUADALUPER, UMICRO #### [facility] [address] [address] [address] Hardeep Rivera Protein [Mass/Vol] 7.2 g/dL Normal 6.4-8.2 [facility] Comment on above: Performed By: #### E COLLINSR, UMICRO #### [facility] [address] [address] [address] Hardeep Rivera Sodium [Moles/Vol] 131 mmol/L Critically low 136-145 [facility] Comment on above: Performed By: #### E COLLINSR UMICRO #### [facility] [address] [place] [address] Dr. Hardeep Rivera Urea nitrogen [Mass/Vol] 38.0 mg/dL Critically high 7.0-18.0 [facility] Comment on above: Performed By: #### E COLLINSR UMICRO #### [facility] [address] [place] [address] Dr. Hardeep Rivera Urea nitrogen/Creatinine [Mass ratio] 25.5 mg/mg Normal [facility] Comment on above: Performed By: #### AKSHAT OLSONICRO #### [facility] [address] [place] [address] Dr. Hardeep Rivera TSHon 12-11-2022 TSH 6.407 uIU/mL Critically high 0.358-3.740 [facility] Comment on above: Performed By: #### AKSHAT OLSONICRO #### [facility] [address] [place] [address] Dr. Hardeep Rivera [facility]01 SARS-CoV-2 (COVID-19) RNA ULICES+probe Ql (Unsp spec) Not detected Normal NOT DETECTED [facility] Comment on above: Result Comment: This test is not yet approved or cleared by the [place] FDA. When there are no FDA-approved or cleared tests available, and other criteria are met, FDA can make tests available under an emergency access mechanism called an Emergency Use Authorization (EUA). The EUA for this test is supported by the [place] of Health and Human Service's (HHS's) declaration [...] Performed By: #### C VDTB #### [facility] [address] [place] [address] Dr. Hardeep Rivera INFLUENZA A AND B AGon 11-14 [facility] SEE BELOW Normal [facility] Comment on above: Result Comment: Nega tive for Flu A protein angiten. Infection due to Flu A cannot be ruled out. Flu A angiten in the sample may be below the detection limit of the test. Performed By: #### E RUR, UMICRO #### [facility] [address] [place] [address] Dr. Hard[facility] Normal [facility] Comment on above: Result Comment: Nega tive for Flu B protein antigen. Infection due to Flu B cannot be ruled out. Flu B antigen in the sample may be below the detection limit of the test. Performed By: #### E KATHRIN, UMICRO #### [facility] [address] [place] [address] Dr. Hardeep Rivera INFLUENZA A AG Negative Normal NEGATIVE SEE COMMENT [facility] Comment on above: Performed By: #### E KATHRIN, UMICRO #### [facility] [address] [place] [address] Dr. Hardeep Rivera INFLUENZA B AG Negative Normal NEGATIVE SEE COMMENT [facility] Comment on above: Performed By: #### Deedee PINON, UMICRO #### [facility] [address] [place] [address] Dr. Hardeep Rivera INTERNAL CONTROLS Within Normal Limits Normal Wi thin Normal Limits [facility] Comment on above: Performed By: #### E COLLINSR, UMICRO #### [facility] [address] [place] [address] Dr. Hardeep Rivera Covid-19 PCR ([facility])on SARS-CoV-2 (COVID-19) RNA ULICES+probe Ql (Unsp spec) Not detected Normal NOT DETECTED [facility] Comment on above: Result Comment: This test is not yet approved or cleared by the [place] FDA. When there are no FDA-approved or cleared tests available, and other criteria are met, FDA can make tests available under an emergency access mechanism called an Emergency Use Authorization (EUA). The EUA for this test is supported by the [employer] of Health and Human Service's (HHS's) declaration [...] consistent with SARS-CoV-2. Performed By: #### C [facility] #### [facility] [address] [place] [address] Dr. Hardeep Rivera INFLUENZA A AND B AGon 10-03 [facility] SEE BELOW Normal [facility] Comment on above: Result Comment: Nega tive for Flu A protein angiten. Infection due to Flu A cannot be ruled out. Flu A angiten in the sample may be below the detection limit of the test. Performed By: #### E KATHRIN UMICRO #### [facility] [address] [place] [address] Dr. Hardeep Rivera [facility] SEE BELOW Normal [facility] Comment on above: Result Comment: Nega tive for Flu B protein antigen. Infection due to Flu B cannot be ruled out. Flu B antigen in the sample may be below the detection limit of the test. Performed By: #### E COLLINSR, UMICRO #### [facility] [address] [place] [address] Dr. Hardeep Rivera INFLUENZA A AG Negative Normal NEGATIVE SEE COMMENT [facility] Comment on above: Performed By: #### E COLLINSR, UMICRO #### [facility] [address] [place] [address] Dr. Hardeep Rivera INFLUENZA B AG Negative Normal NEGATIVE SEE COMMENT [facility] Comment on above: Performed By: #### E RUR, UMICRO #### [facility] [address] [place], [place] [address] Dr. Hardeep Rivera INTERNAL CONTROLS Within Normal Limits Normal Wi thin Normal Limits [facility] Comment on above: Performed By: #### E RANDALL PINON #### [facility] [address] [place], [place] [address] Dr. Hardeep Clark 08-16-2022 CNPN Telephone ([facility]) -- SYLVIA HERRERA ([id number]) 1945 F Date Time Provider Department 08/16/22 SOY MCCANN [facility] ISACC During your visit today, [...] mg by mouth three times daily. - fbthtu-kwlerpnk-cdvuuly (CREON) 24,000-76,000 -120,000 unit cpDR Take 3 [...] Status:Closed by SOY MCCANN on 08/16/22 Normal [facility] AMYLASEon 08-04-2022 Amylase [Catalytic activity/Vol] 155 U/L Critically high 25-115 [facility] Comment on above: Performed By: #### C ARGENIS, BRITTNEY MELGOZA ####[facility] [address] [address]Dr. Hardeep Rivera CBC AUTO DIFFon 08-04-2022 BASO # 0.0 103/ul Normal 0.0-0.1 [facility] Comment on above: Performed By: #### C BC ####[facility] [address] [address]Dr. Hardeep Miguel Basophils/100 WBC (Bld) 0.3 % Normal 0.2-2.0 [facility] Comment on above: Performed By: #### C BC ####[facility] [address] [place], [place] [address]Dr. Hardeep Irvera EO # 0.1 103/ul Normal 0.0-0.7 [facility] Comment on above: Performed By: #### C BC ####[facility] [address] [place], [place] [address]Dr. Hardeep Rivera Eosinophils/100 WBC (Bld) 1.2 % Normal 0.9-7.0 [facility] Comment on above: Performed By: #### C BC ####[facility] [address] [place], [place] [address]Dr. Hardeep Rivera Erythrocyte distribution width (RBC) [Ratio] 12.2 % Normal 11.0-15.0 [facility] Comment on above: Performed By: #### C BC ####[facility] [address] [place], [place] [address]Dr. Hardeep Rivera Hematocrit (Bld) [Volume fraction] 38.3 % Normal 36.0-48.0 [facility] Comment on above: Performed By: #### C BC ####[facility] [address] [place], [place] [address]Dr. Hardeep Rivera Hemoglobin (Bld) [Mass/Vol] 12.9 g/dL Normal 12.0-16.0 [facility] Comment on above: Performed By: #### C BC ####[facility] [address] [address]Dr. Hardeep Rivera IG # 0.02 10e3/ul Normal 0.00-0.03 [facility] Comment on above: Performed By: #### C BC ####[facility] [address] [address]Dr. Hardeep Rivera IG % 0.3 % Normal 0.0-0.5 [facility] Comment on above: Performed By: #### C BC ####[facility] [address] [address]Dr. Hardeep Rivera LYMPH # 1.1 103/ul Critically low 1.2-3.8 [facility] Comment on above: Performed By: #### C BC ####[facility] [address] [address]Dr. Preethiarabella Rivera Lymphocytes/100 WBC (Bld) 16.6 % Critically low 20.5-60.0 [facility] Comment on above: Performed By: #### C BC ####[facility] [address] [address]Dr. Hardeep Rivera MANUAL DIFF REQ NO Normal [facility] Comment on above: Performed By: #### C BC ####[facility] [address] [id number]. Hardeep Rivera MCH (RBC) [Entitic mass] 29.7 pg Normal 26.7-34.0 [facility] Comment on above: Performed By: #### C BC ####[facility] [address] [address]Dr. Hardeep Rivera MCHC (RBC) [Mass/Vol] 33.7 g/dL Normal 29.9-35.2 [facility] Comment on above: Performed By: #### C BC ####[facility] [address] [address]Dr. Hardeep Miguel MCV (RBC) [Entitic vol] 88.2 fL Normal 81.0-99.0 [facility] Comment on above: Performed By: #### C BC ####[facility] [address] [address]Dr. Hardeep Rivera MONO # 0.7 103/ul Normal 0.3-0.8 [facility] Comment on above: Performed By: #### C BC ####[facility] [address] [address]Dr. Hardeep Rivera Monocytes/100 WBC (Bld) 11.1 % Normal 1.7-12.0 [facility] Comment on above: Performed By: #### C BC ####[facility] [address] [address]Dr. Hardeep Rivera NEUT # 4.6 103/ul Normal 1.4-6.5 [facility] Comment on above: Performed By: #### C BC ####[facility] [address] [address]Dr. Hardeep Rivera Neutrophils/100 WBC (Bld) 70.5 % Normal 43.0-75.0 [facility] Comment on above: Performed By: #### C BC ####[facility] [address] [id number]. Hardeep Rivera Platelet mean volume (Bld) [Entitic vol] 9.4 fL Critically low 9.5-13.5 [facility] Comment on above: Performed By: #### C BC ####[facility] [address] [id number]. Hardeep Rivera PLT 203 103/ul Normal 150-450 [facility] Comment on above: Performed By: #### C BC ####[facility] [address] [id number]. Hardeep Rivera RBC 4.34 106/ul Normal 4.20-5.40 [facility] Comment on above: Performed By: #### C BC ####[facility] [address] [id number]. Hardeep Rivera WBC 6.5 103/ul Normal 4.0-11.0 [facility] Comment on above: Performed By: #### C BC ####[facility] [address] [id number]. Hardeep Rivera CT ABD/PELVIS WO CONon 08-04 [...] with prior examination. Electronically authenticated by: ALEXSANDER NOESHIRLEY Date: 2022-08-04 20:12 Normal [facility] Covid-19 PCR ([facility])on SARS-CoV-2 (COVID-19) RNA ULICES+probe Ql (Unsp spec) Not detected Normal NOT DETECTED [facility] Comment on above: Result Comment: When [...] for this test is supported by the [employer] of Health and Human Service's declaration that [...] used). Performed By: #### C VDTBH ####[facility] [id number] [id number]. Hardeep Rivera ER URINE PROFILEon 2 Bilirubin Ql (U) Negative Normal NEGATIVE [facility] Comment on above: Performed By: #### E RUR #### [facility] [address] [address] [address] Hardeep Rivera Clarity (U) CLEAR Normal CLEAR [facility] Comment on above: Performed By: #### E RUR #### [facility] [address] [address] [address] Hardeep Rivera Color (U) LT. YELLOW Normal YELLOW [facility] Comment on above: Performed By: #### E RUR #### [facility] [address] [place] [address] Dr. Hardeep FRANCIS A micrscopic examina tion will be performed if indicated. Normal [facility] Comment on above: Performed By: #### E RUR #### [facility] [address] [place] [address] Dr. Hardeep Rivera Glucose Ql (U) Negative Normal NEGATIVE [facility] Comment on above: Performed By: #### E RUR #### [facility] [address] [place] [address] Dr. Hardeep Rivera Hemoglobin Ql (U) Negative Normal NEGATIVE [facility] Comment on above: Performed By: #### E RUR #### [facility] [address] [place] [address] Dr. Hardeep Rivera Ketones Ql (U) Negative Normal NEGATIVE [facility] Comment on above: Performed By: #### E RUR #### [facility] [address] [place] [address] Dr. Hardeep Rivera LEUKOCYTES Negative Normal NEGATIVE [facility] Comment on above: Performed By: #### E RUR #### [facility] [address] [place] [address] Dr. Hardeep Rivera Nitrite Ql (U) Negative Normal NEGATIVE [facility] Comment on above: Performed By: #### E RUR #### [facility] [address] [place] [address] Dr. Hardeep Rivera pH (U) 7.0 [pH] Normal 5-9 [facility] Comment on above: Performed By: #### E RUR #### [facility] [address] [place] [address] Dr. Hardeep Rivera SPEC GRAVITY <=1.005 Abnormal 1.005-<=1.0 25 [facility] Comment on above: Performed By: #### E RUR #### [facility] [address] [place] [address] Dr. Hardeep Rivera UA PROTEIN Negative Normal NEGATIVE/ TRACE [facility] Comment on above: Performed By: #### E RUR #### [facility] [address] [address] [address] Hardeep Rivera UR MICRO IND NOT INDICATED Normal [facility] Comment on above: Performed By: #### E RUR #### [facility] [address] [address] [address] Hardeep Rivera Urobilinogen Qn (U) 0.2 {Kevon'U}/dL Normal 0.2 - 1. 0 [facility] Comment on above: Performed By: #### E RUR #### [facility] [address] [address] [address] Hardeep Rivera LIPASEon 08-04-2022 Lipase [Catalytic activity/Vol] 1486.0 U/L Critically high 73.0-393.0 [facility] Comment on above: Performed By: #### C ARGENIS LIPJhony, BRITTNEY ####[facility] [address] [address]Dr. Hardeep Rivera PROF 14(COMP METB)on 022 Albumin [Mass/Vol] 3.6 g/dL Normal 3.4-5.0 [facility] Comment on above: Performed By: #### C ARGENIS LIPA, BRITTNEY ####[facility] [address] [address]DrLaura Rivera Albumin/Globulin [Mass ratio] 1.3 {ratio} Normal [facility] Comment on above: Performed By: #### C MP, LIPA, BRITTNEY ####[facility] [address] [address]Dr. Hardeep Rivera ALP [Catalytic activity/Vol] 171 U/L Critically high 46-116 [facility] Comment on above: Performed By: #### C MP LIPA, BRITTNEY ####[facility] [address] [address]Dr. Hardeep Rivera ALT [Catalytic activity/Vol] 35 U/L Normal 14-59 [facility] Comment on above: Performed By: #### C MP, LIPA, BRITTNEY ####[facility] [address] [address]Dr. Hardeep Rivera Anion gap [Moles/Vol] 11.4 mmol/L Normal [facility] Comment on above: Performed By: #### C MP, LIPA, BRITTNEY ####[facility] [address] [address]Dr. Hardeep Rivera AST [Catalytic activity/Vol] 28 U/L Normal 15-37 [facility] Comment on above: Performed By: #### C MP, LIPA, BRITTNEY ####[facility] [address] [place], [place] [address]Dr. Hardeep Rivera Bilirubin [Mass/Vol] 0.7 mg/dL Normal 0.2-1.0 [facility] Comment on above: Performed By: #### C MP, LIPA, BRITTNEY ####[facility] [address] [place], [place] [address]Dr. Hardeep Rivera Calcium [Mass/Vol] 8.4 mg/dL Critically low 8.5-10.1 [facility] Comment on above: Performed By: #### C MP, LIPA, BRITTNEY ####[facility] [address] [place], [place] [address]Dr. Hardeep Rivera Chloride [Moles/Vol] 100 mmol/L Normal 98-107 [facility] Comment on above: Performed By: #### C MP, LIPA, BRITTNEY ####[facility] [address] [place], [place] [address]Dr. Hardeep Rivera CO2 [Moles/Vol] 25.6 mmol/L Normal 21.0-32.0 [facility] Comment on above: Performed By: #### C MP, LIPA, BRITTNEY ####[facility] [address] [place], [place] [address]Dr. Hardeep Rivera Creatinine [Mass/Vol] 1.33 mg/dL Critically high 0.55-1.02 [facility] Comment on above: Performed By: #### C MP, LIPA, BRITTNEY ####[facility] [address] [place], [place] [address]Dr. Hardeep Rivera EGFR-AF WALLISIAN 47 mL/min/1.73m2 Critically low >=60 [facility] Comment on above: Performed By: #### C ABAD MORE, BRITTNEY ####[facility] [address] [address]Dr. Hardeep Rivera EGFR-NON AF WALLISIAN 39 mL/min/1.73m2 Critically low >=60 [facility] Comment on above: Performed By: #### C ABAD MORE, BRITTNEY ####[facility] [address] [address]Dr. Hardeep Rivera Globulin (S) [Mass/Vol] 2.7 g/dL Normal [facility] Comment on above: Performed By: #### C ABAD MORE, BRITTNEY ####[facility] [address] [place], [place] [address]Dr. Hardeep Rivera Glucose [Mass/Vol] 108 mg/dL Critically high 74-106 [facility] Comment on above: Performed By: #### C ABAD MORE, BRITTNEY ####[facility] [address] [place], [place] [address]Dr. Hardeep Rivera Potassium [Moles/Vol] 4.0 mmol/L Normal 3.5-5.1 [facility] Comment on above: Performed By: #### C ABAD MORE, BRITTNEY ####[facility] [address] [place], [place] [address]Dr. Hardeep Rivera Protein [Mass/Vol] 6.3 g/dL Critically low 6.4-8.2 Th [facility] Comment on above: Performed By: #### C ABAD MORE, BRITTNEY ####[facility] [address] [place], [place] [address]Dr. Hardeep Rivera Sodium [Moles/Vol] 133 mmol/L Critically low 136-145 [facility] Comment on above: Performed By: #### C DERRELL MOREA, BRITTNEY ####[facility] [address] [address]Dr. Hardeep Rivera Urea nitrogen [Mass/Vol] 23.0 mg/dL Critically high 7.0-18.0 [facility] Comment on above: Performed By: #### C ABAD MORE, BRITTNEY ####[facility] [address] [address]Dr. Hardeep Rivera Urea nitrogen/Creatinine [Mass ratio] 17.3 mg/mg Normal [facility] Comment on above: Performed By: #### C MP, LIPA, BRITTNEY ####[facility] [address] [address]Dr. Hardeep Rivera BOX TEST SENT OUTon 08-02-20 SENT TO REF LAB 08/02/2022 Normal [facility] Comment on above: Performed By: #### Deedee PINON #### [facility] [address] [place] [address] Dr. Hardeep Rivera CBC AUTO DIFFon 08-02-2022 BASO # 0.0 103/ul Normal 0.0-0.1 [facility] Comment on above: Performed By: #### RANDALL OLSON #### [facility] [address] [place] [address] Dr. Hardeep Rivera Basophils/100 WBC (Bld) 0.3 % Normal 0.2-2.0 [facility] Comment on above: Performed By: #### RANDALL OLSON #### [facility] [address] [place] [address] Dr. Hardeep Rivera EO # 0.1 103/ul Normal 0.0-0.7 [facility] Comment on above: Performed By: #### RANDALL OLSON #### [facility] [address] [place] [address] Dr. Hardeep Rivera Eosinophils/100 WBC (Bld) 1.4 % Normal 0.9-7.0 [facility] Comment on above: Performed By: #### RANDALL OLSON #### [facility] [address] [place] [address] Dr. Hardeep Rivera Erythrocyte distribution width (RBC) [Ratio] 12.2 % Normal 11.0-15.0 [facility] Comment on above: Performed By: #### RANDALL OLSON #### [facility] [address] [place] [address] Dr. Hardeep Rivera Hematocrit (Bld) [Volume fraction] 41.2 % Normal 36.0-48.0 [facility] Comment on above: Performed By: #### E KATHRIN, UMICRO #### [facility] [address] [place] [address] Dr. Hardeep Rivera Hemoglobin (Bld) [Mass/Vol] 13.6 g/dL Normal 12.0-16.0 [facility] Comment on above: Performed By: #### E KATHRIN, UMICRO #### [facility] [address] [place] [address] Dr. Hardeep Rivera IG # 0.02 10e3/ul Normal 0.00-0.03 [facility] Comment on above: Performed By: #### Deedee PINON, UMICRO #### [facility] [address] [place] [address] Dr. Hardeep Rivera IG % 0.3 % Normal 0.0-0.5 [facility] Comment on above: Performed By: #### Deedee PINON UMICRO #### [facility] [address] [place] [address] Dr. Hardeep Rivera LYMPH # 0.6 103/ul Critically low 1.2-3.8 [facility] Comment on above: Performed By: #### Deedee PINON, UMICRO #### [facility] [address] [place] [address] Dr. Hardeep Rivera Lymphocytes/100 WBC (Bld) 8.9 % Critically low 20.5-60.0 [facility] Comment on above: Performed By: #### Deedee PINON, UMICRO #### [facility] [address] [place] [address] Dr. Hardeep Rivera MANUAL DIFF REQ NO Normal [facility] Comment on above: Performed By: #### E RUTrish, UMICRO #### [facility] [address] [place] [address] Dr. Hardeep Rivera MCH (RBC) [Entitic mass] 29.6 pg Normal 26.7-34.0 [facility] Comment on above: Performed By: #### HARI OLSONRO #### [facility] [address] [place] [address] Dr. Hardeep Rivera MCHC (RBC) [Mass/Vol] 33.0 g/dL Normal 29.9-35.2 [facility] Comment on above: Performed By: #### HARI OLSONRO #### [facility] [address] [place] [address] Dr. Hardeep Rivera MCV (RBC) [Entitic vol] 89.8 fL Normal 81.0-99.0 [facility] Comment on above: Performed By: #### HARI OLSONRO #### [facility] [address] [place] [address] Dr. Hardeep Rivera MONO # 0.7 103/ul Normal 0.3-0.8 [facility] Comment on above: Performed By: #### HARI OLSONRO #### [facility] [address] [place] [address] Dr. Hardeep Rivera Monocytes/100 WBC (Bld) 11.6 % Normal 1.7-12.0 [facility] Comment on above: Performed By: #### HARI OLSONRO #### [facility] [address] [place] [address] Dr. Hardeep Rivera NEUT # 5.0 103/ul Normal 1.4-6.5 [facility] Comment on above: Performed By: #### HARI OLSONRO #### [facility] [address] [place] [address] Dr. Hardeep Rivera Neutrophils/100 WBC (Bld) 77.5 % Critically high 43.0-75.0 [facility] Comment on above: Performed By: #### HARI OLSONRO #### [facility] [address] [place] [address] Dr. Hardeep Rivera Platelet mean volume (Bld) [Entitic vol] 9.4 fL Critically low 9.5-13.5 [facility] Comment on above: Performed By: #### HARI OLSONRO #### [facility] [address] [place], [place] [address] Dr. Hardeep Rivera PLT 200 103/ul Normal 150-450 [facility] Comment on above: Performed By: #### RANDALL OLSON #### [facility] [address] [place], [place] [address] Dr. Hardeep Rivera RBC 4.59 106/ul Normal 4.20-5.40 [facility] Comment on above: Performed By: #### RANDALL OLSON #### [facility] [address] [place], [place] [address] Dr. Hardeep Rivera WBC 6.4 103/ul Normal 4.0-11.0 [facility] Comment on above: Performed By: #### RANDALL OLSON #### [facility] [address] [place], [place] [address] Dr. [facility] ODETTEN Telephone (JULIAN CONNELLY MA[facility]) -- SYLVIA HERRERA ([id number]) 1945 F Date Time Provider Department 08/02/22 LOIDA MATHIAS [facility] During your visit today, we recorded the following information about you: Linden Faustina 08/02/2022 1:42 PM Signed Patient had labs drawn 08/02/22, uploaded to scanned docs. Loida Mathias APRN.CAMPAIGN COORDINATOR 08/07/2022 10:27 AM Signed Received outside labs drawn 08/02 -- FK 4.7 Cr 1.4 BUN 21 K 3.9 FBS 119 WBC 6400 Hgb 13.6 Hct 41 Plts 200 My chart message sent to patient. Advised no changes. Asked that she keep us posted re: if she will be transferring her care. Loida Mathias APRN.CAMPAIGN COORDINATOR August 07, 2022 10:27 AM Allergies As [...] mg by mouth three times daily. - pqdxqb-rfspcqei-urpgvus (CREON) 24,000-76,000 -120,000 unit cpDR Take 3 [...] Status:Closed by LINDEN WEEMS on 08/02/22 Normal [facility] PROF CHEM 8 (BAS METB)on Anion gap [Moles/Vol] 12.2 mmol/L Normal [facility] Comment on above: Performed By: #### RANDALL OLSON #### [facility] [address] [place] [address] Dr. Hardeep Rivera Calcium [Mass/Vol] 8.6 mg/dL Normal 8.5-10.1 [facility] Comment on above: Performed By: #### RANDALL OLSON #### [facility] [address] [place] [address] Dr. Hardeep Rivera Chloride [Moles/Vol] 98 mmol/L Normal 98-107 [facility] Comment on above: Performed By: #### RANDALL OLSON #### [facility] [address] [place] [address] Dr. Hardeep Rivera CO2 [Moles/Vol] 27.7 mmol/L Normal 21.0-32.0 [facility] Comment on above: Performed By: #### RANDALL OLSON #### [facility] [address] [address] [address] Hardeep Rivera Creatinine [Mass/Vol] 1.42 mg/dL Critically high 0.55-1.02 [facility] Comment on above: Performed By: #### Deedee PINON UMICRO #### [facility] [address] [address] [address] Hardeep Rivera EGFR-AF WALLISIAN 43 mL/min/1.73m2 Critically low >=60 [facility] Comment on above: Performed By: #### E KATHRIN, UMICRO #### [facility] [address] [address] [address] Hardeep Rivera EGFR-NON AF WALLISIAN 36 mL/min/1.73m2 Critically low >=60 [facility] Comment on above: Performed By: #### Deedee PINON UMICRO #### [facility] [address] [address] [address] aHrdeep Rivera Glucose [Mass/Vol] 119 mg/dL Critically high 74-106 T [facility] Comment on above: Performed By: #### Deedee PINON UMICRO #### [facility] [address] [address] [address] Hardeep Rivera Potassium [Moles/Vol] 3.9 mmol/L Normal 3.5-5.1 [facility] Comment on above: Performed By: #### Deedee PINON UMICRO #### [facility] [address] [address] [address] Hardeep Rivera Sodium [Moles/Vol] 134 mmol/L Critically low 136-145 Th [facility] Comment on above: Performed By: #### Deedee PINON, UMICRO #### [facility] [address] [address] [address] Hardeep Rivera Urea nitrogen [Mass/Vol] 21.0 mg/dL Critically high 7.0-18.0 [facility] Comment on above: Performed By: #### Deedee PINON, UMICRO #### [facility] [address] [address] [address] Hardeep Rivera Urea nitrogen/Creatinine [Mass ratio] 14.8 mg/mg Normal [facility] Comment on above: Performed By: #### E RANDALL PINON #### [facility] [address] [address] [address] Hardeep Rivera Tacrolimus Bld-marleen 2021 Tacrolimus (Bld) [Mass/Vol] 4.7 ng/mL Low 5.0-20.0 [facility] Comment on above: Order Comment: Speci [...] Test performed by chemiluminescent immunoassay using [employer]. Performed By: #### 1 1253-2 ####[facility] LABCLIA [id number] [address] [facility] 07-05-2022 ODETTEN Telephone ([facility]) -- SYLVIA HERRERA ([id number]) 1945 F Date Time Provider Department 07/05/22 [facility] today, we recorded the following information about you: Sho Crowley APRN.CAMPAIGN COORDINATOR 07/05/2022 10:48 AM Signed 07/03/22 labs: FK: [...] another team. Sho Dmitriy MONTANO CNP Pager: [phone] July 05, 2022 10:42 AM Post Heart [...] transplant. No Dr Caldera: Rfl: TACROLIMUS/FK-506 BL [[id number]] Order #: [id number] FUTURE Prescriptions as of 07/05/2022 - tacrolimus [...] mg by mouth three times daily. - dirikb-shaojwao-uaisock (CREON) 24,000-76,000 -120,000 unit cpDR Take 3 [...] (more content not included)... Normal [facility] BOX TEST SENT OUTon 07-03-20 22 SENT TO REF LAB 07/03/2022 Normal [facility] Comment on above: Performed By: #### E RANDALL PINON #### [facility] [address] [place] [address] Dr. Hardeep Rivera CBC AUTO DIFFon 07-03-2022 BASO # 0.0 103/ul Normal 0.0-0.1 [facility] Comment on above: Performed By: #### C BC #### [facility] [address] [place] [address] Dr. Hardeep Rivera Basophils/100 WBC (Bld) 0.3 % Normal 0.2-2.0 [facility] Comment on above: Performed By: #### C BC #### [facility] [address] [place] [address] Dr. Hardeep Rivera EO # 0.1 103/ul Normal 0.0-0.7 [facility] Comment on above: Performed By: #### C BC #### [facility] [address] [place] [address] Dr. Hardeep Rivera Eosinophils/100 WBC (Bld) 0.9 % Normal 0.9-7.0 [facility] Comment on above: Performed By: #### C BC #### [facility] [address] [place] [address] Dr. Hardeep Rivera Erythrocyte distribution width (RBC) [Ratio] 12.2 % Normal 11.0-15.0 [facility] Comment on above: Performed By: #### C BC #### [facility] [address] [place] [address] Dr. Hardeep Rivera Hematocrit (Bld) [Volume fraction] 42.3 % Normal 36.0-48.0 [facility] Comment on above: Performed By: #### C BC #### [facility] [address] [place] [address] Dr. Hardeep Rivera Hemoglobin (Bld) [Mass/Vol] 14.0 g/dL Normal 12.0-16.0 [facility] Comment on above: Performed By: #### C BC #### [facility] [address] [place] [address] Dr. Hardeep Rivera IG # 0.04 10e3/ul Critically high 0.00-0.03 [facility] Comment on above: Performed By: #### C BC #### [facility] [address] [place] [address] Dr. Hardeep Rivera IG % 0.5 % Normal 0.0-0.5 [facility] Comment on above: Performed By: #### C BC #### [facility] [address] [place] [address] Dr. Hardeep Rivera LYMPH # 0.8 103/ul Critically low 1.2-3.8 [facility] Comment on above: Performed By: #### C BC #### [facility] [address] [place] [address] Dr. Hardeep Rivera Lymphocytes/100 WBC (Bld) 10.9 % Critically low 20.5-60.0 [facility] Comment on above: Performed By: #### C BC #### [facility] [address] [place] [address] Dr. Hardeep Rivera MANUAL DIFF REQ NO Normal [facility] Comment on above: Performed By: #### C BC #### [facility] [address] [place] [address] Dr. Hardeep Rivera MCH (RBC) [Entitic mass] 29.7 pg Normal 26.7-34.0 [facility] Comment on above: Performed By: #### C BC #### [facility] [address] [place] [address] Dr. Hardeep Rivera MCHC (RBC) [Mass/Vol] 33.1 g/dL Normal 29.9-35.2 [facility] Comment on above: Performed By: #### C BC #### [facility] [address] [place] [address] Dr. Hardepe Rivera MCV (RBC) [Entitic vol] 89.8 fL Normal 81.0-99.0 [facility] Comment on above: Performed By: #### C BC #### [facility] [address] [place] [address] Dr. Hardeep Rivera MONO # 0.9 103/ul Critically high 0.3-0.8 [facility] Comment on above: Performed By: #### C BC #### [facility] [address] [place] [address] Dr. Hardeep Rivera Monocytes/100 WBC (Bld) 11.1 % Normal 1.7-12.0 [facility] Comment on above: Performed By: #### C BC #### [facility] [address] [place] [address] Dr. Hardeep Rivera NEUT # 5.8 103/ul Normal 1.4-6.5 [facility] [facility] Comment on above: Performed By: #### C BC #### [facility] [address] [place] [address] Dr. Hardeep Rivera Neutrophils/100 WBC (Bld) 76.3 % Critically high 43.0-75.0 [facility] Comment on above: Performed By: #### C BC #### [facility] [address] [address] [address] Hardeep Rivera Platelet mean volume (Bld) [Entitic vol] 9.5 fL Normal 9.5-13.5 [facility] Comment on above: Performed By: #### C BC #### [facility] [address] [address] [address] Hardeep Rivera PLT 191 103/ul Normal 150-450 [facility] Comment on above: Performed By: #### C BC #### [facility] [address] [address] [address] Hardeep Rivera RBC 4.71 106/ul Normal 4.20-5.40 [facility] Comment on above: Performed By: #### C BC #### [facility] [address] [address] [address] Hardeep Rivera WBC 7.6 103/ul Normal 4.0-11.0 [facility] Comment on above: Performed By: #### C BC #### [facility] [address] [place] [address] Dr. Hardeep Clark 07-03-2022 CNPN Telephone ([facility]) -- SYLVIA HERRERA ([id number]) 1945 F Date Time Provider Department 07/03/22 SOY MCCANN CARD [facility] During your visit today, we recorded the following information about you: Linden Weems 07/03/2022 1:02 PM Signed Patient had labs drawn 07/03/22, uploaded to [employer] docs. Allergies As of Date: 07/03/2022 Noted [...] mg by mouth three times daily. 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 Hardeep Rivera Calcium [Mass/Vol] 9.0 mg/dL Normal 8.5-10.1 [facility] Comment on above: Performed By: #### RANDALL OLSON #### [facility] [address] [place] [address] Dr. Hardeep Rivera Chloride [Moles/Vol] 98 mmol/L Normal 98-107 [facility] Comment on above: Performed By: #### RANDALL OLSON #### [facility] [address] [address] [address] Hardeep Rivera CO2 [Moles/Vol] 28.1 mmol/L Normal 21.0-32.0 [facility] Comment on above: Performed By: #### RANDALL OLSON #### [facility] [address] [place] [address] Dr. Hardeep Rivera Creatinine [Mass/Vol] 1.64 mg/dL Critically high 0.55-1.02 [facility] Comment on above: Performed By: #### RANDALL OLSON #### [facility] [address] [address] [address] Hardeep Rivera EGFR-AF WALLISIAN 37 mL/min/1.73m2 Critically low >=60 [facility] Comment on above: Performed By: #### AKSHAT OLSONICRO #### [facility] [address] [address] [address] Hardeep Rivera EGFR-NON AF WALLISIAN 30 mL/min/1.73m2 Critically low >=60 [facility] Comment on above: Performed By: #### E KATHRIN, UMICRO #### [facility] [address] [place] [address] Dr. Hardeep Rivera Glucose [Mass/Vol] 114 mg/dL Critically high 74-106 [facility] Comment on above: Performed By: #### Deedee PINON UMICRO #### [facility] [address] [place] [address] Dr. Hardeep Rivera Potassium [Moles/Vol] 4.0 mmol/L Normal 3.5-5.1 [facility] Comment on above: Performed By: #### Deedee PINON UMICRO #### [facility] [address] [place] [address] Dr. Hardeep Rivera Sodium [Moles/Vol] 135 mmol/L Critically low 136-145 [facility] Comment on above: Performed By: #### Deedee PINON, UMICRO #### [facility] [address] [place] [address] Dr. Hardeep Rivera Urea nitrogen [Mass/Vol] 24.0 mg/dL Critically high 7.0-18.0 [facility] Comment on above: Performed By: #### Deedee PINON UMICRO #### [facility] [address] [place] [address] Dr. Hardeep Rivera Urea nitrogen/Creatinine [Mass ratio] 14.6 mg/mg Normal [facility] Comment on above: Performed By: #### Deedee PINON, UMICRO #### [facility] [address] [place] [address] Dr. Hardeep Rivera Tacrolimus Bld-ncon 2021 Tacrolimus (Bld) [Mass/Vol] 12.4 ng/mL Normal 5.0-20.0 [facility] Comment on above: Order Comment: Speci [...] situation. Test performed by chemiluminescent immunoassay using [employer]. Performed By: #### 1 [id number] ####[facility] LABCLIA [id number] [place] [address] [place] MG MAMM SCREEN 3D TRISHA CADon 05-28-2022 MG MAMM SCREEN 3D TRISHA CAD Patient: SYLVIA HERRERA Exam Date: 05/28/2022 : 1945 Gender:F Ordering : DR TAO ROONEY . Admission #: [id number] Family : Order #: [id number] CLICK HERE TO VIEW EXAM RADIOLOGY REPORT [...] No Treatments None Family Cancers None LOCATION: [facility] BREAST COMPOSITION: Heterogeneously dense,which may obscure [...] Ibrahim MD on 05/28/2022 at 10:20 Normal [facility] 05-08-2022 CNPN Telephone ([facility]ARD [facility]) -- SYLVIA HERRERA ([id number]) 1945 F Date Time Provider Department 05/08/22 [facility] During your visit today, we recorded the following information about you: Linden Faustina 05/08/2022 11:50 AM Signed Patient had labs drawn 05/07/22, uploaded to scanned docs. Linden Faustina Administrative Renovation Plant Supervisor Loida Mathias APRN.ODETTE 05/08/2022 3:21 PM Signed [...] transplant. No Dr Caldera: Rfl: TACROLIMUS/FK-506 BL [[id number]] Order #: [id number] FUTURE Prescriptions as of 05/08/2022 - tacrolimus [...] mg by mouth three times daily. - qgleiy-wlozojkn-wqdzevi (CREON) 24,000-76,000 -120,000 unit cpDR Take 3 [...] (more content not included)... Normal [facility] BOX TEST SENT OUTon 05-07-20 22 SENT TO REF LAB 05/07/2022 Normal [facility] Comment on above: Performed By: #### RANDALL OLSON #### [facility] [address] [place] [address] Dr. Hardeep Rivera CBC AUTO DIFFon 05-07-2022 BASO # 0.0 103/ul Normal 0.0-0.1 [facility] Comment on above: Performed By: #### RANDALL OLSON #### [facility] [address] [place] [address] Dr. Hardeep Rivera Basophils/100 WBC (Bld) 0.4 % Normal 0.2-2.0 [facility] Comment on above: Performed By: #### RANDALL OLSON #### [facility] [address] [place] [address] Dr. Hardeep Rivera EO # 0.1 103/ul Normal 0.0-0.7 [facility] Comment on above: Performed By: #### RANDALL OLSON #### [facility] [address] [place] [address] Dr. Hardeep Rivera Eosinophils/100 WBC (Bld) 1.0 % Normal 0.9-7.0 [facility] Comment on above: Performed By: #### RANDALL OLSON #### [facility] [address] [place] [address] Dr. Hardeep Rivera Erythrocyte distribution width (RBC) [Ratio] 12.6 % Normal 11.0-15.0 [facility] Comment on above: Performed By: #### RANDALL OLSON #### [facility] [address] [place] [address] Dr. Hardeep Rivera Hematocrit (Bld) [Volume fraction] 44.0 % Normal 36.0-48.0 [facility] Comment on above: Performed By: #### E RUR, UMICRO #### [facility] [address] [address] [address] Hardeep Rivera Hemoglobin (Bld) [Mass/Vol] 14.0 g/dL Normal 12.0-16.0 [facility] Comment on above: Performed By: #### E RUR, UMICRO #### [facility] [address] [place] [address] Dr. Hardeep Rivera IG # 0.02 10e3/ul Normal 0.00-0.03 [facility] Comment on above: Performed By: #### E RUR, UMICRO #### [facility] [address] [place] [address] Dr. Hardeep Rivera IG % 0.3 % Normal 0.0-0.5 [facility] Comment on above: Performed By: #### E KATHRIN, UMICRO #### [facility] [address] [place] [address] Dr. Hardeep Rivera LYMPH # 0.6 103/ul Critically low 1.2-3.8 [facility] Comment on above: Performed By: #### E RUTrish, UMICRO #### [facility] [address] [place] [address] Dr. Hardeep Rivera Lymphocytes/100 WBC (Bld) 8.2 % Critically low 20.5-60.0 [facility] Comment on above: Performed By: #### E KATHRIN, UMICRO #### [facility] [address] [place] [address] Dr. Hardeep Rivera MANUAL DIFF REQ NO Normal [facility] Comment on above: Performed By: #### E RUR, UMICRO #### [facility] [address] [place] [address] Dr. Hardeep Rivera MCH (RBC) [Entitic mass] 29.4 pg Normal 26.7-34.0 [facility] Comment on above: Performed By: #### E RUR, UMICRO #### [facility] [address] [place] [address] Dr. Hardeep Rivera MCHC (RBC) [Mass/Vol] 31.8 g/dL Normal 29.9-35.2 [facility] Comment on above: Performed By: #### RANDALL OLSON #### [facility] [address] [place] [address] Dr. Hardeep Rivera MCV (RBC) [Entitic vol] 92.2 fL Normal 81.0-99.0 [facility] Comment on above: Performed By: #### HARI OLSONRO #### [facility] [address] [place] [address] Dr. Hardeep Rivera MONO # 0.8 103/ul Normal 0.3-0.8 [facility] Comment on above: Performed By: #### HARI OLSONRO #### [facility] [address] [place] [address] Dr. Hardeep Rivera Monocytes/100 WBC (Bld) 9.6 % Normal 1.7-12.0 [facility] Comment on above: Performed By: #### HARI OLSONRO #### [facility] [address] [place] [address] Dr. Hardeep Rivera NEUT # 6.3 103/ul Normal 1.4-6.5 [facility] Comment on above: Performed By: #### RANDALL OLSON #### [facility] [address] [place] [address] Dr. Hardeep Rivera Neutrophils/100 WBC (Bld) 80.5 % Critically high 43.0-75.0 [facility] Comment on above: Performed By: #### HARI OLSONRO #### [facility] [address] [place] [address] Dr. Hardeep Rivera Platelet mean volume (Bld) [Entitic vol] 10.1 fL Normal 9.5-13.5 [facility] Comment on above: Performed By: #### HARI OLSONRO #### [facility] [address] [place] [address] Dr. Hardeep Rivera PLT 188 103/ul Normal 150-450 [facility] Comment on above: Performed By: #### HARI OLSONRO #### [facility] [address] [place] [address] Dr. Hardeep Rivera RBC 4.77 106/ul Normal 4.20-5.40 [facility] Comment on above: Performed By: #### Deedee PINON UMICRO #### [facility] [address] [place] [address] Dr. Hardeep Rivera WBC 7.8 103/ul Normal 4.0-11.0 [facility] Comment on above: Performed By: #### Deedee PINON UMICRO #### [facility] [address] [place] [address] Dr. Hardeep Rivera PROF CHEM 8 (BAS METB)on Anion gap [Moles/Vol] 11.9 mmol/L Normal [facility] Comment on above: Performed By: #### Deedee PINON UMICRO #### [facility] [address] [place] [address] Dr. Hardeep Rivera Calcium [Mass/Vol] 8.7 mg/dL Normal 8.5-10.1 [facility] Comment on above: Performed By: #### Deedee PINON UMICRO #### [facility] [address] [place] [address] Dr. Hardeep Rivera Chloride [Moles/Vol] 99 mmol/L Normal 98-107 [facility] Comment on above: Performed By: #### Deedee PINON UMICRO #### [facility] [address] [place] [address] Dr. Hardeep Rivera CO2 [Moles/Vol] 27.1 mmol/L Normal 21.0-32.0 [facility] Comment on above: Performed By: #### Deedee PINON UMICRO #### [facility] [address] [place] [address] Dr. Hardeep Rivera Creatinine [Mass/Vol] 1.62 mg/dL Critically high 0.55-1.02 [facility] Comment on above: Performed By: #### Deedee PINON UMICRO #### [facility] [address] [place] [address] Dr. Hardeep Rivera EGFR-AF WALLISIAN 37 mL/min/1.73m2 Critically low >=60 [facility] Comment on above: Performed By: #### RANDALL OLSON #### [facility] [address] [place] [address] Dr. Hardeep Rivera EGFR-NON AF WALLISIAN 31 mL/min/1.73m2 Critically low >=60 [facility] Comment on above: Performed By: #### HARI OLSONRO #### [facility] [address] [place] [address] Dr. Hardeep Rivera Glucose [Mass/Vol] 73 mg/dL Critically low 74-106 [facility] Comment on above: Performed By: #### RANDALL OLSON #### [facility] [address] [place] [address] Dr. Hardeep Rivera Potassium [Moles/Vol] 4.0 mmol/L Normal 3.5-5.1 [facility] Comment on above: Performed By: #### RANDALL OLSON #### [facility] [address] [place] [address] Dr. Hardeep Rivera Sodium [Moles/Vol] 134 mmol/L Critically low 136-145 [facility] Comment on above: Performed By: #### RANDALL OLSON #### [facility] [address] [place] [address] Dr. Hardeep Rivera Urea nitrogen [Mass/Vol] 33.0 mg/dL Critically high 7.0-18.0 [facility] Comment on above: Performed By: #### HARI OLSONRO #### [facility] [address] [place] [address] Dr. Hardeep Rivera Urea nitrogen/Creatinine [Mass ratio] 20.4 mg/mg Normal [facility] Comment on above: Performed By: #### HARI OLSONRO #### [facility] [address] [place] [address] Dr. Hardeep Rivera TACROLIMUS/FK-506 BLon 05-07 Tacrolimus (Bld) [Mass/Vol] 3.4 ng/mL Low 5.0-20.0 [facility] Comment on above: Order Comment: Víctor [...] situation. Test performed by chemiluminescent immunoassay using [employer]. Performed By: #### F K506 ####[facility] LABCLIA [id number] [address] OF [facility] 05-03-2022 [facility] SYLVIA HERRERA ([id number]) 1945 F Date Time Provider Department 05/03/22 SHO CROWLEY [facility] During your visit today, we recorded the following information about you: Sho Crowley APRN.CAMPAIGN COORDINATOR 05/03/2022 2:58 PM Signed received phone call from [facility]iology group requesting patient's Tacrolimus levels from 04/24. Faxed results to [phone]. Allergies As of Date: 05/03/2022 Noted Allergy [...] mg by mouth three times daily. - lymkgf-xmkytaay-klbvicu (CREON) 24,000-76,000 -120,000 unit cpDR Take 3 [...] SHO CROWLEY on 05/03/22 Normal [facility] BOX TEST SENT OUTon 04-24-20 SENT TO REF LAB 04/24/2022 Normal [facility] Comment on above: Performed By: #### RANDALL OLSON #### [facility] [address] [place] [address] Dr. [facility] NIK Telephone (CARD [facility]) -- SYLVIA HERRERA ([id number]) 1945 F Date Time Provider Department 04/24/22 LOIDA MATHIAS [facility] During your visit today, we recorded the following information about you: Linden Weems 04/24/2022 1:31 PM Signed Patient left message that she had labs drawn today. Linden Weems Administrative Renovation Plant Supervisor Post Heart Transplant J3-4 Loida Mathias APRN.CNP 04/26/2022 11:25 AM Signed Received FK level 4.5, drawn 04/24 My chart message sent to patient. Advised to remain on current dose and keep our office updated re: her plans for post transplant follow up. Loida Mathias APRN.CAMPAIGN COORDINATOR April 26, 2022 11:24 AM Component Latest [...] mg by mouth three times daily. - yerxzi-tehadlfr-edcuekz (CREON) 24,000-76,000 -120,000 unit cpDR Take 3 [...] [R10.31] 04/29/2014 09/02/2019 Diabetes mellitus, type II ([facility]) [E11.9] 04/29/2014 DREW (acute kidney injury) (HCC) [...] Status:Closed by LINDEN WEEMS on 04/24/22 Normal [facility] TACROLIMUS/FK-506 BLon 04-24 Tacrolimus (Bld) [Mass/Vol] 4.5 ng/mL Low 5.0-20.0 [facility] Comment on above: Order Comment: Speci [...] Test performed by chemiluminescent immunoassay using [employer]. Performed By: #### F K506 ####[facility] LABCLIA [id number] [place] [address] [place] FK506 (TACROLIMUS) WHOLE BLO ODon 04-11-2022 Tacrolimus (FK506), Blood 7.3 ng/mL Normal 2.0-20.0 [facility] Comment on above: Result Comment: Trou gh (immediately following transplant) 15.0 . Trough (steady state, 2 weeks or more after transplant): 3.0 - 8.0 . Performed by LC-MS/MS technology. Performed By: #### E RANDALL PINON #### [facility] [address] [place] [address] Dr. Hardeep Rivera BOX TEST SENT OUTon 04-09-20 22 SENT TO REF LAB 04/09/2022 Normal [facility] Comment on above: Performed By: #### Deedee PINON UMICRO #### [facility] [address] [place] [address] Dr. Hardeep Rivera CBC AUTO DIFFon 04-09-2022 BASO # 0.0 103/ul Normal 0.0-0.1 [facility] Comment on above: Performed By: #### Deedee PINON UMICRO #### [facility] [address] [place] [address] Dr. Hardeep Rivera Basophils/100 WBC (Bld) 0.1 % Critically low 0.2-2.0 [facility] Comment on above: Performed By: #### Deedee PINON UMICRO #### [facility] [address] [place] [address] Dr. Hardeep Rivera EO # 0.1 103/ul Normal 0.0-0.7 [facility] Comment on above: Performed By: #### AKSHAT OLSONICRO #### [facility] [address] [place] [address] Dr. Hardeep Rivera Eosinophils/100 WBC (Bld) 1.2 % Normal 0.9-7.0 [facility] Comment on above: Performed By: #### AKSHAT OLSONICRO #### [facility] [address] [place] [address] Dr. Hardeep Rivera Erythrocyte distribution width (RBC) [Ratio] 12.6 % Normal 11.0-15.0 [facility] Comment on above: Performed By: #### Deedee PINON UMICRO #### [facility] [address] [place] [address] Dr. Hardeep Rivera Hematocrit (Bld) [Volume fraction] 44.1 % Normal 36.0-48.0 [facility] Comment on above: Performed By: #### Deedee PINON UMICRO #### [facility] [address] [place] [address] Dr. Hardeep Rivera Hemoglobin (Bld) [Mass/Vol] 14.1 g/dL Normal 12.0-16.0 [facility] Comment on above: Performed By: #### HARI OLSONRO #### [facility] [address] [place] [address] Dr. Hardeep Rivera IG # 0.02 10e3/ul Normal 0.00-0.03 [facility] Comment on above: Performed By: #### HARI OLSONRO #### [facility] [address] [place] [address] Dr. Hardeep Rivera IG % 0.3 % Normal 0.0-0.5 [facility] Comment on above: Performed By: #### HARI OLSONRO #### [facility] [address] [place] [address] Dr. Hardeep Rivera LYMPH # 0.7 103/ul Critically low 1.2-3.8 [facility] Comment on above: Performed By: #### AKSHAT OLSONICRO #### [facility] [address] [place] [address] Dr. Hardeep Rivera Lymphocytes/100 WBC (Bld) 10.8 % Critically low 20.5-60.0 [facility] Comment on above: Performed By: #### AKSHAT OLSONICRO #### [facility] [address] [place] [address] Dr. Hardeep Rivera MANUAL DIFF REQ NO Normal [facility] Comment on above: Performed By: #### AKSHAT OLSONICRO #### [facility] [address] [place] [address] Dr. Hardeep Rivera MCH (RBC) [Entitic mass] 29.3 pg Normal 26.7-34.0 [facility] Comment on above: Performed By: #### Deedee PINON UMICRO #### [facility] [address] [place] [address] Dr. Hardeep Rivera MCHC (RBC) [Mass/Vol] 32.0 g/dL Normal 29.9-35.2 [facility] Comment on above: Performed By: #### Deedee PINON UMICRO #### [facility] [address] [place] [address] Dr. Hardeep Rivera MCV (RBC) [Entitic vol] 91.7 fL Normal 81.0-99.0 [facility] Comment on above: Performed By: #### Deedee PINON UMICRO #### [facility] [address] [place] [address] Dr. Hardeep Rivera MONO # 0.7 103/ul Normal 0.3-0.8 [facility] Comment on above: Performed By: #### Deedee PINON UMICRO #### [facility] [address] [place] [address] Dr. Hardeep Rivera Monocytes/100 WBC (Bld) 10.8 % Normal 1.7-12.0 [facility] Comment on above: Performed By: #### Deedee PINON UMICRO #### [facility] [address] [place] [address] Dr. Hardeep Rivera NEUT # 5.2 103/ul Normal 1.4-6.5 [facility] Comment on above: Performed By: #### Deedee PINON UMICRO #### [facility] [address] [place] [address] Dr. Hardeep Rivera Neutrophils/100 WBC (Bld) 76.8 % Critically high 43.0-75.0 [facility] Comment on above: Performed By: #### Deedee PINON UMICRO #### [facility] [address] [place] [address] Dr. Hardeep Rivera Platelet mean volume (Bld) [Entitic vol] 9.8 fL Normal 9.5-13.5 [facility] Comment on above: Performed By: #### Deedee PINON UMICRO #### [facility] [address] [place] [address] Dr. Hardeep Rivera PLT 200 103/ul Normal 150-450 [facility] Comment on above: Performed By: #### Deedee PINON UMICRO #### [facility] [address] [place] [address] Dr. Hardeep Rivera RBC 4.81 106/ul Normal 4.20-5.40 [facility] Comment on above: Performed By: #### Deedee PINON UMICRO #### [facility] [address] [place] [address] Dr. Hardeep Rivera WBC 6.7 103/ul Normal 4.0-11.0 [facility] Comment on above: Performed By: #### Deedee PINON UMICRO #### [facility] [address] [place] [address] Dr. Hardeep Rivera PROF CHEM 8 (BAS METB)on Anion gap [Moles/Vol] 9.1 mmol/L Normal [facility] Comment on above: Performed By: #### Deedee PINON UMICRO #### [facility] [address] [place] [address] Dr. Hardeep Rivera Calcium [Mass/Vol] 8.3 mg/dL Critically low 8.5-10.1 [facility] Comment on above: Performed By: #### Deedee PINON UMICRO #### [facility] [address] [place] [address] Dr. Hardeep Rivera Chloride [Moles/Vol] 100 mmol/L Normal 98-107 [facility] Comment on above: Performed By: #### Deedee PINON UMICRO #### [facility] [address] [place] [address] Dr. Hardeep Rivera CO2 [Moles/Vol] 28.1 mmol/L Normal 21.0-32.0 [facility] Comment on above: Performed By: #### Deedee PINON, UMICRO #### [facility] [address] [place] [address] Dr. Hardeep Rivera Creatinine [Mass/Vol] 1.54 mg/dL Critically high 0.55-1.02 [facility] Comment on above: Performed By: #### Deedee PINON, UMICRO #### [facility] [address] [place] [address] Dr. Hardeep Rivera EGFR-AF WALLISIAN 40 mL/min/1.73m2 Critically low >=60 [facility] Comment on above: Performed By: #### HARI OLSONRO #### [facility] [address] [address] [address] Hardeep Rivera EGFR-NON AF WALLISIAN 33 mL/min/1.73m2 Critically low >=60 [facility] Comment on above: Performed By: #### Deedee PINON UMICRO #### [facility] [address] [place] [address] Dr. Hardeep Rivera Glucose [Mass/Vol] 122 mg/dL Critically high 74-106 T [facility] Comment on above: Performed By: #### Deedee PINON UMICRO #### [facility] [address] [place] [address] Dr. Hardeep Rivera Potassium [Moles/Vol] 4.2 mmol/L Normal 3.5-5.1 [facility] Comment on above: Performed By: #### HARI OLSONRO #### [facility] [address] [place] [address] Dr. Hardeep Rivera Sodium [Moles/Vol] 133 mmol/L Critically low 136-145 Th [facility] Comment on above: Performed By: #### HARI OLSONRO #### [facility] [address] [place] [address] Dr. Hardeep Rivera Urea nitrogen [Mass/Vol] 28.0 mg/dL Critically high 7.0-18.0 [facility] Comment on above: Performed By: #### HARI OLSONRO #### [facility] [address] [place] [address] Dr. Hardeep Rivera Urea nitrogen/Creatinine [Mass ratio] 18.2 mg/mg Normal [facility] Comment on above: Performed By: #### HARI OLSONRO #### [facility] [address] [place] [address] Dr. Hardeep Rivera TACROLIMUS/FK-506 BLon 04-09 Tacrolimus (Bld) [Mass/Vol] 9.9 ng/mL Normal 5.0-20.0 [facility] Comment on above: Order Comment: Speci [...] Test performed by chemiluminescent immunoassay using [employer]. Performed By: #### F K506 ####[facility] [id number] [address] Eduardo 10-10-2021 NIK Telephone (JULIAN CONNELLY MAI) -- SYLVIA HERRERA ([id number]) 1945 F Date Time Provider Department 10/10/21 LOIDA MATHIAS [facility] During your visit today, we recorded the following information about you: Linden Weems 10/10/2021 11:57 AM Signed Patient had labs drawn today Linden Weems Administrative Renovation Plant Supervisor Linden Weems 10/11/2021 10:57 AM Signed Labs uploaded to scanned docs. Linden Weems Administrative Renovation Plant Supervisor Loida Mathias APRN.CNP 10/12/2021 12:28 PM [...] transplant. No Dr Ellerp: Rfl: TACROLIMUS/FK-506 BL [[id number]] Order #: [id number] FUTURE Prescriptions as of 10/12/2021 - tacrolimus [...] mg by mouth three times daily. - wslupb-sntcoqvi-wsgebgi (CREON) 24,000-76,000 -120,000 unit cpDR Take 3 [...] [J18.9] 11/29 (more content not included)... Normal [facility] Tacrolimus / [id number] Tacrolimus / FK506 10.1 ng/mL Normal 5.0-20.0 [facility] Comment on above: Result Comment: Thes [...] situation. Test performed by chemiluminescent immunoassay using [employer]. Performed By: #### F K506 ####[facility] [id number] [place], [place] [id number] [facility] 09-13-2021 CNPN Telephone [facility] -- SYLVIA HERRERA ([id number]) 1945 F Date Time Provider Department 09/13/21 ARELIS NEWSOME [facility] During your visit today, we recorded the following information about you: Linden Weems 09/13/2021 2:52 PM Signed S/w pt, due to transportation and financial constraints she is unable to come to [place] for appointments. Patient is working with her case work aide to establish care with a local school cook (had previously been followed by one in [place]).Dr Rice has agreed and plan going forward will be to do a phone visit with pt on 10/03 and she will follow up in the interim with her local Business Administration Program Chair. Sending pt mailers and lab order, she will get those done as soon as she can. 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 - nlublq-wakklcxn-jeemjlv (CREON) 24,000-76,000 -120,000 unit cpDR Take 3 [...] Encounter Status:Closed by LINDEN WEEMS on 09/13/21 [facility] OBSOLETEon 09-12-2021 OBSOLETE Refill ([facility] ) -- SYLVIA HERRERA ([id number]) 1945 F Date Time Provider Department 09/12/21 SANDRITA GUERRERO [facility] During your visit today, [...] mg by mouth three times daily. - lziysr-wflebufe-tgcqfha (CREON) 24,000-76,000 -120,000 unit cpDR Take 3 [...] Status:Closed by SANDRITA GUERRERO on 09/12/21 Normal [facility] Vital Signs Date Time Vital Sign Value Performing Clinician Dami charles 04-08-2023 06:45-0400 Diastolic blood pressure 76 mm[Hg] [facility] 04-08-2023 06:45-0400 Heart rate 59 /min [facility] 04-08-2023 06:45-0400 Hourly Rounding [facility] 04-08-2023 06:45-0400 Mean blood pressure 106 mm[Hg] [employer] 04-08-2023 06:45-0400 Respiratory rate 18 /min [employer] 04-08-2023 06:45-0400 SaO2% (BldA) [Mass fraction] 96 % Richard Roby [facility] 04-08-2023 06:45-0400 Systolic blood pressure 167 mm[Hg] Richard Roby [facility] 04-08-2023 05:30-0400 Diastolic blood pressure 88 mm[Hg] Richard Roby [facility] 04-08-2023 05:30-0400 Heart rate 52 /min Richard Roby [facility] 04-08-2023 05:30-0400 Hourly Rounding Richard Roby [facility] 04-08-2023 05:30-0400 Mean blood pressure 114 mm[Hg] Richard Roby [facility] 04-08-2023 05:30-0400 Respiratory rate 18 /min Richard Roby [facility] 04-08-2023 05:30-0400 SaO2% (BldA) [Mass fraction] 95 % Richard Roby [facility] 04-08-2023 05:30-0400 Systolic blood pressure 167 mm[Hg] Richard Roby [facility] 04-08-2023 04:39-0400 Diastolic blood pressure 90 mm[Hg] Richard Roby [facility] 04-08-2023 04:39-0400 Heart rate 56 /min Richard Roby [facility] 04-08-2023 04:39-0400 Hourly Rounding Richard Roby [facility] 04-08-2023 04:39-0400 Mean blood pressure 112 mm[Hg] Richard Roby [facility] 04-08-2023 04:39-0400 Respiratory rate 17 /min Richard Roby [facility] 04-08-2023 04:39-0400 SaO2% (BldA) [Mass fraction] 94 % Richard Roby [facility] 04-08-2023 04:39-0400 Systolic blood pressure 155 mm[Hg] Richard Roby [facility] 04-07-2023 21:48-0400 Respiratory rate 18 /min [facility] 04-07-2023 21:19-0400 Body temperature 98.06 [degF] Richard Roby [facility] 04-07-2023 21:19-0400 Heart rate 65 /min Richard Roby [facility] 04-07-2023 21:19-0400 Respiratory rate 19 /min [facility]y [facility] Encounters Encounter Date Encounter Type Care Provider Facility Start: 10-09-2024 ambulatory González Lomax lity:[facility] Start: 09-14-2024 End: 09-14-2024 ambulatory [facility] Start: 07-01-2024 End: 07-01-2024 ambulatory [facility] Start: 06-18-2024 End: 06-18-2024 ambulatory NON STAFF [facility] Work Phone: Start: 06-18-2024 End: [facility] Start: 02-03-2024 End: 02-03-2024 ambulatory [facility] Start: 11-12-2023 End: 11-12-2023 ambulatory [facility] Start: 04-07-2023 End: 04-08-2023 Emergency department patient visit Richard Ca [facility] Start: 03-05-2023 End: 03-05-2023 ambulatory SCOT [...] ROGERS Facility:[facility] Start: 09-08-2022 Refill Sandrita Guerrero APRN.CAMPAIGN COORDINATOR Work Phone: Cardiology Comment on above: Refill Request Start: 08-04-2022 End: 08-04-2022 ambulatory NANCY REYES . Facility:[facility] Start: 08-02-2022 Telephone encounter Loida Mathias APRN.CAMPAIGN COORDINATOR Work Phone: Cardiology Comment on above: Heart Transplant Fol low Up (Labs/) Start: 08-02-2022 End: 08-03-[address] TAO ROONEY . Facility:[facility] Start: 07-27-[address] TAO ROONEY . Facili ty:[facility] Start: 07-16-2022 End: 07-16-2022 Patient encounter procedure Eddie VERAS [facility] Start: 07-05-2022 Telephone encounter Sho Crowley APRN.CAMPAIGN COORDINATOR Work Phone: Cardiology Comment on above: Heart Transplant Fol low Up; Lab Meeting Start: 07-03-2022 Telephone encounter Soy Mccann RN [facility] Comment on above: Heart Transplant Fol low Up (labs) Start: 07-03-2022 End: 07-04-[address] TAO ROONEY . Facility:[facility] Start: 05-28-2022 End: 05-29-[address] TAO ROONEY . Facility:[facility] Start: 05-08-2022 Telephone encounter Loida Mathias APRN.CAMPAIGN COORDINATOR Work Phone: Cardiology Comment on above: Heart Transplant Fol low Up (labs) Start: 05-07-2022 End: 05-08-[address] TAO ROONEY . Facility:[facility] Start: 04-24-2022 Telephone encounter Loida Mathias APRN.CAMPAIGN COORDINATOR Work Phone: Cardiology Comment on above: Heart Transplant Fol low Up Start: 04-24-2022 End: 04-25-[address] TAO ROONEY . Facility:[facility] Start: 04-20-[address] TAO ROONEY . Facili ty:[facility] Start: 04-11-2022 ambulatory Loida fontaine APRN.CNP Work Phone: [facility] Start: 04-11-2022 Follow-up encounter Loida Mathias APRN.CAMPAIGN COORDINATOR Work Phone: Cardiology Comment on above: Heart Transplant Fol low Up (Labs) Start: 04-09-2022 End: 04-10-[address] TAO ROONEY . Facility:[facility] Start: 04-06-2022 Orders Only Loida fontaine APRN.CAMPAIGN COORDINATOR Work Phone: Cardiology Comment on above: Heart replaced by tr ansplant (HCC) (Primary Dx) Start: 04-04-2022 Refill Loida fontaine APRN.CAMPAIGN COORDINATOR Work Phone: Cardiology Comment on above: Rx Refills Start: 10-03-2021 End: 10-03-2021 ambulatory NICOLETTE RICE [facility] Procedures Date Procedure Procedure Detail Performing Clinician Start: 08-10-2013 H/O: heart recipient Heart transplan arianna Loida Mathias APRN.CAMPAIGN COORDINATOR Work Phone: H/O: heart recipient Heart transplanted ( HCC) Loida Mathias RICE FIELD WORKER.CAMPAIGN COORDINATOR Work Phone: H/O: heart recipient Heart repla nitish by transplant ([facility]) Loida Mathias RICE FIELD WORKER.CAMPAIGN COORDINATOR Work Phone: H/O: heart recipient Heart transplanted ( HCC) Loida Mathias RICE FIELD WORKER.CAMPAIGN COORDINATOR Work Phone: H/O: heart recipient Heart transplanted ( HCC) Loida Mathias RICE FIELD WORKER.CAMPAIGN COORDINATOR Work Phone: H/O: heart recipient Heart transplanted ( HCC) Sho Crowley RICE FIELD WORKER.CAMPAIGN COORDINATOR Work Phone: H/O: heart recipient Hx of heart transplant( Confirmed ) Eddie VERAS Plan of Treatment Date Care Activity Detail Author Start: 08-02-2022 Influenza vaccination INFLUENZA (#1) [facility] Start: 07-19-2022 End: 09-18-2022 Tacrolimus [Mass/volume] in Blood TACROLIMUS/FK-506 BL Lab Routine Heart transplanted ([facility]) Expected: 07/19/2022 (Approximate), Expires: 09/18/2022 [facility] Work Phone: Comment on above: Expected: 07/19/2022 (Approximate), Expires: 09/18/2022 Start: 05-21-2022 End: 07-21-2022 TACROLIMUS/FK-506 BL TACROLIMUS/FK-506 BL Lab Routine Heart transplanted ([facility]) Expected: 05/21/2022, Expires: 07/21/2022 [facility] Work Phone: Comment on above: Expected: 05/21/2022 , Expires: 07/21/2022 Start: 04-23-2022 End: 06-23-2022 TACROLIMUS/FK-506 BL TACROLIMUS/FK-506 BL Lab Routine Heart transplanted ([facility]) Expected: 04/23/2022, Expires: 06/23/2022 [facility] Work Phone: Comment on above: Expected: 04/23/2022 , Expires: 06/23/2022 Start: 04-09-2022 End: 06-09-2022 CBC W Auto Differential panel - Blood CBC + DIFF Lab Routine Heart replaced by transplant ([facility]) Expected: 04/09/2022, Expires: 06/09/2022 [facility] Work Phone: Comment on above: Expected: 04/09/2022 , Expires: 06/09/2022 Start: 04-09-2022 End: 06-09-2022 Comprehensive metabolic 2000 panel - Serum or Plasma COMP METABOLIC PANEL Lab Routine Heart replaced by transplant ([facility]) Expected: 04/09/2022, Expires: 06/09/2022 [facility] Work Phone: Comment on above: Expected: 04/09/2022 , Expires: 06/09/2022 Start: 04-09-2022 End: 04-06-2023 HEART/LUNG REC POST TX DSA HEART/LUNG REC POST TX DSA ALLOGEN Routine Heart replaced by transplant ([facility]) Expected: 04/09/2022, Expires: 04/06/2023 [facility] Work Phone: Comment on above: Expected: 04/09/2022 , Expires: 04/06/2023 Start: 04-09-2022 End: 06-09-2022 LIPID PANEL BASIC LIPID PANEL BASIC Lab Routine Heart replaced by transplant ([facility]) Expected: 04/09/2022, Expires: 06/09/2022 [facility] Work Phone: Comment on above: Expected: 04/09/2022 , Expires: 06/09/2022 Start: 04-09-2022 End: 06-09-2022 Magnesium [Mass/volume] in Serum or Plasma MAGNESIUM BLD Lab Routine Heart replaced by transplant ([facility]) Expected: 04/09/2022, Expires: 06/09/2022 [facility] Work Phone: Comment on above: Expected: 04/09/2022 , Expires: 06/09/2022 Start: 04-09-2022 End: 06-09-2022 TACROLIMUS/FK-506 BL TACROLIMUS/FK-506 BL Lab Routine Heart replaced by transplant ([facility]) Expected: 04/09/2022, Expires: 06/09/2022 [facility] Work Phone: Comment on above: Expected: 04/09/2022 , Expires: 06/09/2022 Start: 04-09-2022 End: 06-09-2022 URINALYSIS, DIPSTICK ONLY URINALYSIS, DIPSTICK ONLY Lab Routine Heart replaced by transplant (HCC) Expected: 04/09/2022, Expires: 06/09/2022 [facility] Work Phone: Comment on above: Expected: 04/09/2022 , Expires: 06/09/2022 Start: 12-02-2021 ADVANCE DIRECTIVE DISCUSSION ADVANCE DIRECTIVE DISCUSSION [facility] Start: 09-26-2021 COVID-19 VACCINE (3 - Pfizer risk 4-dose series) COVID-19 VACCINE (3 - Pfizer risk 4-dose series) [facility] Start: 09-26-2021 COVID-19 VACCINE (3 - Pfizer risk series) COVID-19 VACCINE (3 - Pfizer risk series) [facility] Start: 03-04-2020 Hepatitis B surface antibody level LDL CHOLESTEROL [facility] Start: 06-14-2015 Hemoglobin A1c/Hemoglobin.total in Blood HBA1C [facility] Start: 11-01-2013 PNEUMOCOCCAL: 65+ (3 - PCV) PNEUMOCOCCAL: 65+ (3 - PCV) [facility] Start: 2009 AD[facility] Start: 1994 SHINGRIX VACCINE (1 of 2) SHINGRIX VACCINE (1 of 2) [facility] Start: 1963 SHINGRIX VACCINE (1 of 2) SHINGRIX VACCINE (1 of 2) [facility] Start: 1963 Urine microalbumin profile DTAP,TDAP,TD (1 - Tdap) [facility] Start: 1962 ANNUAL PCP TEAM TRANSITION MGR ESTRELLA DISEASE VISIT ANNUAL PCP TEAM CHRONIC DISEASE VISIT [facility] Start: 1962 BP CONTROLLED (<130/80) BP CONTROLLE D (<130/80) [facility] Start: 1954 3 comp foot exam completed DIABETIC FOOT EXAM [facility] Start: 1954 Hepatitis B screening URINE ALBUMIN:CREATININE RATIO [facility] Start: 1954 Hepatitis C antibody , confirmatory test DILATED RETINAL EXAM [facility] Start: 1950 PNEUMOCOCCAL: 65+ (1 - PCV) PNEUMOCOCCAL: 65+ (1 - PCV) [facility] Immunizations Immunization Date Immunization Notes Care Provider Fa cility 06-05-2022 SARS-CoV-2 mRNA (qrgapjtitds-dyfk-hkepe se) vaccine Morgan SALAM [facility] 08-29-2021 SARS-CoV-2 (COVID-19 ) mRNA BNT-162b2 vax Morgan SALAM [facility] 08-02-2021 SARS-CoV-2 (COVID-19 ) mRNA BNT-162b2 vax Morgan SALAM [facility] 07-05-2021 influenza virus vaccine, unspecified formulation Morgan SALAM [facility] 09-29-2020 influenza, unspecifi ed formulation Morgan SALAM [facility] 07-24-2020 influenza virus vaccine, unspecified formulation Morgan SALAM [facility] 09-02-2017 influenza virus vaccine, unspecified formulation Morgan SALAM [facility] 08-07-2017 pneumococcal conjuga te vaccine, 13 valent Morgan SALAM [facility] 08-14-2016 influenza virus vaccine, unspecified formulation Morgan SALAM [facility] 09-29-2015 pneumococcal conjuga te vaccine, 13 valent Morgan SALAM [facility] 08-04-2015 influenza virus vaccine, unspecified formulation Morgan SALAM [facility] 09-15-2014 influenza virus vaccine, whole virus Loida Iammarino RICE FIELD WORKER.CAMPAIGN COORDINATOR Work Phone: [facility] 09-15-2014 influenza, whole Morgan SALAM [facility] 11-01-2012 pneumococcal polysaccharide vaccine, 23 valent Loida Iammarino RICE FIELD WORKER.CAMPAIGN COORDINATOR Work Phone: [facility] 12-28-2009 novel [id number], all formulations Loida Iammarino RICE FIELD WORKER.CAMPAIGN COORDINATOR Work Phone: [facility] Work Phone: 08-19-2009 influenza virus vaccine, unspecified formulation Loida Iammarino RICE FIELD WORKER.CAMPAIGN COORDINATOR Work Phone: [facility] 09-01-2006 influenza virus vaccine, unspecified formulation Loida Iammarino RICE FIELD WORKER.CAMPAIGN COORDINATOR Work Phone: [facility] Work Phone: 09-01-2006 pneumococcal polysaccharide vaccine, 23 valent Loida Iammarino RICE FIELD WORKER.CAMPAIGN COORDINATOR Work Phone: [facility] Work Phone: NEGATED: Highlighted row has not occurred!07-12-2022 influenza virus vaccine, unspecified formulation Morgan SALAM [facility] Payers Date Payer Category Payer Self-pay 2022 Medicare UHC MEDICARE UHC DUAL COMPLETE HMO SNP [id number] 2022-Present [phone] [address] [place] [address] Medicare [id number] 2022 Medicare UHC MEDICARE UHC DUAL COMPLETE HMO SNP [id number] 2022-Present [phone] [address] [place] [address] Medicare [id number] 2020 Unknown [id number] 1959 Medicaid [id number] 1959 Medicare [id number] 1959 Self-pay [id number] 1959 Unknown [id number] 1944 Unknown [id number] [id number]3 1944 Unknown [id number] 2.16.840.1.156006.3.579.2.593 1944 Unknown [id number] 2.16.840.1.425315.3.579.2.593 1944 Unknown [id number] 2.16.840.1.426543.3.579.2.593 1944 Unknown [id number] 2.16.840.1.947488.3.579.2.593 1944 Unknown [id number] 2.16.840.1.947020.3.579.2.593 1944 Unknown [id number] 2.16.840.1.364699.3.579.2.593 1944 Unknown [id number] 2.16.840.1.267403.3.579.2.593 1944 Unknown [id number] 2.16.840.1.847997.3.579.2.593 1944 Unknown [id number] 2.16.840.1.235501.3.579.2.593 1944 Unknown [id number] 2.16.840.1.016934.3.579.2.593 1944 Unknown [id number] 2.16.840.1.142106.3.579.2.593 1944 Unknown [id number] 2.16.840.1.104995.3.579.2.593 1944 Unknown [id number] 2.16.840.1.093912.3.579.2.593 1944 Unknown [id number] 2.16.840.1.100503.3.579.2.593 1944 Unknown [id number] 2.16.840.1.543251.3.579.2.593 1944 Unknown [id number] 2.16.840.1.064382.3.579.2.593 1944 Unknown [id number] 2.16.840.1.441027.3.579.2.593 1944 Unknown [id number] 2.16.840.1.098350.3.579.2.727 Unknown [id number] 2.16.840.1.956433.3.579.2.593 Social History Date Type Detail Facility Start: [facility]13-[facility] Work Phone: History of tobacco use Cigarette Smoker [facility] Work Phone: Start: 09-07-2019 Alcohol intake Current non-dr custodial worker of alcohol (finding) [facility] Start: 1945 Sex Assigned At Not on file [facility] Start: 07-12-2022 Never smoked t obacco (finding) [facility] Never [facility] Female [facility] History of tobacco use Current smoker [facility] Start: 05-13-2019 Cigarettes smoked current (pack per day) - Reported 0.3 [facility] Start: 05-13-2019 Tobacco use and exposure Smokeless tobacco non-user [facility] Start: 1945 Sex Assigned At Female F [facility] Functional Status Date Assessment Result Facility 04-07-2023 Functional Status N/A [facility] Clinical Notes 11-14-2017 to 09-14-2024 Note Date & Type Note Facility 09-14-2024 Note [facility] Subjective Sylvia Herrera is a 78 y.o. year old female patient being seen for 3 month follow up s/p heart transplantation (2005), hypertension, and syncope. Tacrolimus level was drawn last week. She denies recurrent syncope, and says she's been better about sitting down prior to near-syncopal episodes. C/o sharp chest pain, radiating to her back for the past 2-3 days. Says it's worse during the nighttime. Tums have helped a little bit . C/o worsening SOB w/wo exertion. 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 She is followed by the [facility] cardiology service. She has had [...] abnormalities. Exam was compared with the prior [facility] echocardiographic exam performed on 11/19/16. Similar (more content not included)... [facility] 07-01-2024 Note [place] [facility] Subjective Sylvia Herrera is a 78 y.o. year old female patient being seen for follow up [facility] for syncope. Says she's been having [...] in 2007. She is followed by the [facility] cardiology service. She has had [...] There is no (more content not included)... [facility] 02-03-2024 Note [place] [facility] Subjective Sylvia Herrera is a 78 y.o. year old female patient being seen for follow up [facility]. She was seen as inpatient consult [...] Alcohol use: Not Currently Drug use: Never [facility] Visit of 10/30/2021: Sylvia is seen as [...] in 2007. She is followed by the [facility] cardiology service. She has had [...] echocardiographi (more content not included)... [facility] 11-12-2023 Note [place] [facility] Subjective Sylvia [...] in 2007. She is followed by the [facility] cardiology service. She has had [...] (1 (more content not included)... [facility] 10-28-2023 Note [facility] 04-08-2023 Hospital Discharge instructions Patient Education 04/08/2023 [...] improvement. Follow these instructions at home: Take vppz-fpy-awyayci and prescription medicines only as told by [...] provider. Document Revised: 05/29/2022 Document Reviewed: 05/29/2022 [facility] Patient Education 2022 [employer]. 04/08/2023 08:56:02 Nonspecific Chest Pain, Adult Nonspecific [...] Follow these instructions at home: Medicines Take ysva-qsu-xpyqpuf and prescription medicines only as told by [...] provider. Document Revised: 02/01/2022 Document Reviewed: 02/01/2022 [facility] Patient Education 2022 [employer]. Follow Up Care 04/07/2023 21:19:10 With:SCOT ROGERS Address: [address] [place] [address]- [phone] Business (1) When:Within 3 Day(s) [facility] 04-07-2023 Evaluation + Plan note Extrac arianna from: Title:ED Note Author:Richard Ca DOLaura Date :04/07/23 Chest pain (R07.9: Chest laura [...] Troponin 9 Hr. XR Chest Single View [facility]09-01-2022 Miscellaneous Notes* Telephone Encounter - Linden Weems - 08/02/2022 1:41 PM EDT Patient had labs drawn 08/02/22, uploaded to scanned docs. [facility] Miscellaneous Notes* Telephone Encounter - hSo Crowley APRN.ODETTE - 07/05/2022 10:40 AM EDT [...] another team. Sho Crowley APRN, CNP Pager: [phone] July 05, 2022 10:42 AM Post Heart Transplant Nurse Practitioner documented in this encounterK[facility]08-02-2022 Miscellaneous Notes* Telephone Encounter - Linden Weems - 07/03/2022 12:59 PM EDT Patient had labs drawn 07/03/22, uploaded to scanned docs. documented in this encounterK[facility]06-[facility]-2022 Miscellaneous Notes* Addendum Note - Loida Mathias [...] uploaded to scanned docs. Linden Weems Administrative Renovation Plant Supervisor documented in this encounterK[facility]05-24-2022 Miscellaneous Notes* Telephone Encounter - Linden Weems - 04/24/2022 1:31 PM EDT Patient left message that she had labs drawn today. Linden Weems Administrative Renovation Plant Supervisor Post Heart Transplant J3-4 documented in this encounterK[facility]05-11-2022 NoteHNO ID: [id number] Author: Loida Mathias APRN.CNP Service: ? Author [...] reports she can no longer travel to [place]. She does not have a ride, she has no family or friends to lean on. She has made an appt with a local Business Administration Program Chair. She will ask him if there are any transplant doctors or centers near her and potentially need to transfer her care. She will keep us updated. Loida Mathias APRN.CNP April 12, 2022 2:25 [facility]05-11-2022 History of Present illness Narrative* [...] reports she can no longer travel to [place]. Shedoes not have a ride, she has no family or friends to lean on. She has made an appt with a local Business Administration Program Chair. She will ask him if there are any transplant doctors or centers near her and potentiallyneed to transfer her care. She will keep us updated. Loida Mathias APRN.CNP April 12, 2022 2:25 PM documented in this encounterK[facility]11-08-2021 NoteHNO ID: [id number] Author: Loida Mathias APRN.CNP Service: ? Author [...] staff (Dr Perez) on 04/02/22. Loida Mathias APRN.CAMPAIGN COORDINATOR October 09, 2021 4:10 [facility]11-02-2021 NoteHNO ID: [id number] Author: Nicolette Rice MD Service: ? Author Type: Physician Type: Progress Notes Filed: 10/03/2021 4:12 PM Note Text: Heart, Vascular AND Thoracic [facility] Department of Cardiovascular Medicine TELEPHONE VISIT PROGRESS [...] in ~6 months. Will see a local school cook at the end of the month. Data Reviewed: No new labs Assessment: She is doing well clinically and her BP is controlled. ? Plan: 1. She was instructed to continue the current medical program. 2. RTC per post-transplant protocol. Total Time Spent: 21-30 minutes Nicolette Rice, [facility]12-14-2017 History of Past illness Narrative* Problem [...] encounter (statuses as of 04/05/2022) [facility] History of Past illness Narrative* Problem Noted [...] encounter (statuses as of 04/06/2022) [facility] History of Past illness Narrative* Problem Noted [...] encounter (statuses as of 04/12/2022) [facility] History of Past illness Narrative* Problem Noted [...] encounter (statuses as of 04/24/2022) [facility] History of Past illness Narrative* Problem Noted [...] encounter (statuses as of 05/08/2022) [facility] of Past illness Narrative* Problem Noted [...] encounter (statuses as of 07/03/2022) [facility] of Past illness Narrative* Problem Noted [...] encounter (statuses as of 07/05/2022) [facility] of Past illness Narrative* Problem Noted [...] encounter (statuses as of 08/02/2022) [facility] of Past illness Narrative* Problem Noted [...] of this encounter (statuses as of 09/11/2022) [facility] + Plan note Future Appointments Appointment Date:08/01/2022 01:50:00 PM Scheduled Provider: Location:[facility] Appointment Type:Surgery FT Diagnostic Tests Pending * CMV Antibody IgM 07/16/22 Future Scheduled Tests Laboratory* Fecal WBC Lactoferrin 07/12/22 * Giardia lamblia, Direct Detection EIA 07/12/22 * O & P Exam, Routine 07/12/22 * Clostridium difficile by PCR 07/12/22 * Enteric Panel by PCR 07/12/22 [facility] note* Diagnosis Heart transplanted (HCC) Heart replaced by transplant [facility] Diagnosis Heart replaced by transplant (HCC)- Primary Heart replaced by transplant [facility] Diagnosis Heart replaced by transplant (HCC)- Primary Heart replaced by transplant Heart transplanted (HCC) Heart replaced by transplant [facility]* Diagnosis Heart transplanted (HCC) Heart replaced by transplant [facility]* Diagnosis Heart transplanted (HCC) Heart replaced by transplant documented [facility] noteNo assessment information availableTrihealth Mcc[facility] Work Phone: Hospital course Narrative No data available for this section [facility] Discharge instructions No data available for this section [facility] No data available for this section [facility] Advance Directives No Advanced Directives Records FoundDocuments on File Type Date Recorded Patient Gate Keeper Expl anation Advance Directive(s) 11/14/2017 5:44 AM Advance Directive(s) 01/02/2012 12:00 AM Advance Directive(s) 01/17/2007 12:00 AM Documents on File Type Date Recorded Patient Gate Keeper Expl anation Advance Directive(s) 01/02/2012 Advance Directive(s) [...] any alcohol or drug abuse patient.[facility] the event this information is protected by the Federal Confidentiality of Alcohol and Drug Abuse Patient Records regulations: The Federal rules restrict any use of the information to criminally investigate or prosecute any alcohol or drug abuse patient.[facility] the event this information is protected by the Federal Confidentiality of Alcohol and Drug Abuse Patient Records regulations: The Federal rules restrict any use of the information to criminally investigate or prosecute any alcohol or drug abuse patient.[facility]burg[facility] the event this information is protected by the Federal Confidentiality of Alcohol and Drug Abuse Patient Records regulations: The Federal rules restrict any use of the information to criminally investigate or prosecute any alcohol or drug abuse patient.[facility]burgIn the event this information is protected by the Federal Confidentiality of Alcohol and Drug Abuse Patient Records regulations: The Federal rules restrict any use of the information to criminally investigate or prosecute any alcohol or drug abuse patient.[facility]burgIn the event this information is protected by the Federal Confidentiality of Alcohol and Drug Abuse Patient Records regulations: The Federal rules restrict any use of the information to criminally investigate or prosecute any alcohol or drug abuse patient.[facility]burgIn the event this information is protected by the Federal Confidentiality of Alcohol and Drug Abuse Patient Records regulations: The Federal rules restrict any use of the information to criminally investigate or prosecute any alcohol or drug abuse patient.[facility]burgIn the event this information is protected by the [facility] Confidentiality of Alcohol and Drug Abuse Patient Records regulations: The Federal rules restrict any use of the information to criminally investigate or prosecute any alcohol or drug abuse patient.[facility]burgIn the event this information is protected by the Federal Confidentiality of Alcohol and Drug Abuse Patient Records regulations: The Federal rules restrict any use of the information to criminally investigate or prosecute any alcohol or drug abuse patient.[facility] Reason for Visit (unrecogniz ed section and content) Reason Comments Rx Refills Reason Comments Heart Transplant Follow Up Labs Reason Comments Heart Transplant Follow Up Reason Comments Heart Transplant Follow Up labs Reason Comments Heart Transplant Follow Up Lab Meeting Reason Comments Refill Request Care Teams (unrecognized sec tion and content) Chief Lifestyle Officer Relationship Specialty Start Date End Date Tao Rooney MD [address] [place] [address] PCP - General Family Practice 05/13/19 Chief Lifestyle Officer Relationship Specialty Start Date End Date Tao Rooney MD [address] [place] [address] PCP - General Family Practice 05/13/19 Chief Lifestyle Officer Relationship Specialty Start Date End Date Tao Rooney MD [address] [place] [address] PCP - General Family Practice 05/13/19 Chief Lifestyle Officer Relationship Specialty Start Date End Date Tao Rooney MD [address] [place] [address] PCP - General Family Practice 05/13/19 Chief Lifestyle Officer Relationship Specialty Start Date End Date Tao Rooney MD [address] [place] [address] PCP - General Family Practice 05/13/19 Chief Lifestyle Officer Relationship Specialty Start Date End Date Tao Rooney MD [address] [place] [address] PCP - General Family Medicine 05/13/19 Team Status: Inactive Member Role Status Dates NON STAFF Attending Provider Active Start: 2023 End: June 18, 2024 INFORMATION SOURCE (unrecogn ized section and content) DATE CREATED AUTHOR 09/01/2022 [facility] DATE CREATED AUTHOR AUTHOR'S ORGANIZ ATION 03/09/2023 [facility] DATE CREATED AUTHOR AUTHOR'S ORGANIZ ATION 07/12/2024 [facility] DATE CREATED AUTHOR AUTHOR'S ORGANIZ ATION 09/15/2024 [facility] DATE CREATED AUTHOR AUTHOR'S ORGANIZ ATION 09/24/2024 [facility] Goals (unrecognized section and content) [...] BE BASED ON THE PRIMARY CLINICAL RECORDS. [facility]. provides no warranty or guarantee of the accuracy or completeness of information in this document.
== END 2024-09-25 07:43 | disposition home or self-care (01) ==
LOC: CARD 07:42
PROVIDERS: PCP Family Medicine; Visit Provider Internal Medicine Interventional Cardiology
DX: R11.0 Nausea (principal); Z90.49 Acquired absence of other specified parts of digestive tract; Z94.1 Heart transplant status; R06.02 Shortness of breath
CPT/HCPCS: 76700; 93306

== ENCOUNTER 2024-09-25 08:29 | Outpatient (OUT) | payer MEDICARE, SELFPAY ==
--- NOTE | 2024-09-25 08:31 | US_ITS ---
The [address] [address] Patient Name: SYLVIA HANNA MRN: [id number] date: 1945 Sex: F Assigned Patient Location: Current Patient Location: Accession/Order Number: [id number] Exam Date: 09/25/2024 08:37 Report Date: 09/27/2024 05:50 At the request of: SCOT ROGERS Procedure: US abdomen complete EXAMINATION: US abdomen complete HISTORY: Nausea R11.0 COMPARISON: No relevant comparison available. TECHNIQUE: High resolution sonographic examination of the abdomen was performed. FINDINGS: LIVER: Normal. Normal size and echotexture. No significant masses. Normal waveform and flow within the main portal vein, 36 cm/s. BILIARY: Cholecystectomy. No abnormal duct dilation. PANCREAS: Normal. No visible mass, abnormal atrophy, or ductal dilatation. SPLEEN: Normal. Normal size and echotexture. KIDNEYS: Several small benign-appearing cysts bilaterally. No mass or obstruction. AORTA/VASCULAR: Normal. No aneurysm. OTHER: Negative. US/US abdomen complete IMPRESSION: 1. No abnormal or suspicious findings to account for patient's symptoms. 2. Prior cholecystectomy. Electronically authenticated by: HAI FOSTER Date: 09/27/2024 05:50
--- OUTSIDE RECORDS SUMMARY | 2024-09-25 08:38 | XMS_ITS | CCD ---
Author Organization [facility] Care Team Providers Care Metallurgical Or Materials Technician Name Role Phone Tao Rooney MD Primary Care Provider [phone] SCOT ROGERS Primary Care Physician Tao Rooney MD Primary Care Provider [phone] NICOLETTE RICE Attending UnavailARELIS Rivera Referring Unavailable TAO ROONEY Primary Care Unavailable Tao Rooney MD Primary Care Provider [phone] TORIBIO Sanchez, DR BURGER Primary Care [...] BARFIELD Admitting Unavailable JAZLYN DUBOSE Consulting Unavailable AMY [...] Unavailable HOY ., DR BURGER Attending Unavailable [place], DR JAZLYN Marcelino Consulting Unavailable SCOT ROGERS [...] Consulting Unavailable AMY ., NANCY Admitting Unavailable AYM ., NANCY Attending Unavailable HOY ., DR [...] Attending Unavailable MOUKARBEL, ANISHA Attending Unavailable González Shnaks Attending Unavailable Allergies Allergy Classification Reported Allergen(s) Allergy Type Date of Onset Reaction(s) Facility (10 sources) Acetaminophen / oxyCODONE; Translations: [OXYCODONE-ACETAM INOPHEN] Drug Allergy 05-18-20 14 GI Upset [facility] Work Phone: (11 sources) Promethazine; Translations: [PROMETHAZINE HCL] Drug Allergy 10-11-20 05 Other: See Comments [facility] (3 sources) Levamisole; Translations: [Phenergan] Drug Allergy 04-07-20 13 [facility] (1 source) Morphine Drug Allergy [facility] (2 sources) Promethazine; Translations: [promethazine] Drug Allergy 08-12-20 22 Loss of consciousness (finding) [facility] (1 source) No Known Medication Allergies; Translations: [No Known Medication Allergies] Propensity to adverse reactions (disorder) [facility] Repository Medications Current Medications Medication Drug Class(es) [...] 04-08-2023 Episodic Other aftercare (1 source) 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 I sent her tacrolimus order in the mail for her to have done at [facility] 1 week prior to seeing Dr. Daly for follow up on 09/14/2024. She verbalized understanding. [facility] 36on 07-21-2024 36 Regarding tacrolimus level drawn on 07/07/2024: MD Kaela Smith MA Did she have the echo? Her tacrolimus level is slightly high. I want a repeat in 2 months. *Dr. Daly, her echo was performed on 07/13/2024 and is scanned into media coordinator. Will you review this and then I will call Sylvia. Thanks. [facility] Office Visiton 07-01-2024 [place] [id number] [place] 1945 [place] Date Provider Department Center 07/01/2024 Kirk-ANISHA DALY JULIAN Hernandez Family History Family history unknown: Yes Level of Service:62497 [place] OFFICE/OUTPATIENT ESTABLISHED MOD MDM 30 MIN [facility] Activated partial thrombopla stin time (aPTT) in platelet poor plasma by coagulation aOrdered By: NON STAFF on 06-18-2024 aPTT Coag (PPP) [Time] 31.8 s 25.1-36.5 [facility] Comment on above: A hematocrit value g reater than 55% may lead to inaccurate results in coagulation testing. Patients having hematocrit values >55% require a special collection tube for coagulation studies. Please contact the laboratory at [phone] for redraw instructions. INR in Platelet poor plasma by Coagulation assayOrdered By: NON STAFF on 06-18-2024 INR Coag (PPP) [Relative time] 1.3 {INR} [facility] Comment on above: INR Therapeutic Rang [...] Performed By: #### P TT, PT #### [place] [id number] [facility] Partial Thromboplastin Timeo n 06-18-2024 aPTT Coag (Bld) [Time] 31.8 s Normal 25.1-36.5 [facility] Comment on above: Result Comment: A he matocrit value greater than 55% may lead to inaccurate results in coagulation testing. Patients having hematocrit values >55% require a special collection tube for coagulation studies. Please contact the laboratory at [phone] for redraw instructions. PERFORMED BY: [place] [address] PATHOLOGIST FERRYBOAT CAPTAIN ANDREIA ARRINGTON M.D. Performed By: #### P TT, PT #### [place] [id number] [facility] Prothrombin time (PT)Ordered By: NON STAFF on 06-18-2024 PT Coag (PPP) [Time] 14.4 s High 9.0-12.9 [facility] Comment on above: A hematocrit value g reater than 55% may lead to inaccurate results in coagulation testing. Patients having hematocrit values >55% require a special collection tube for coagulation studies. Please contact the laboratory at [phone] for redraw instructions. Result Comment: A he matocrit value greater than 55% may lead to inaccurate results in coagulation testing. Patients having hematocrit values >55% require a special collection tube for coagulation studies. Please contact the laboratory at [phone] for redraw instructions. Performed By: #### P TT, PT #### [place] [id number] [facility] 36on 04-06-2024 36 I reviewed the [...] monthly labs as ordered at last visit. [facility] Telephoneon 04-06-2024 Telephone [id number] Sylvai Herrera 1945 Provider Department Center 04/06/2024 ANISHA JACOBS Family History Family history unknown: Yes [facility] Orders Onlyon 03-18-2024 Orders Only [id number] Sylvia Herrera Erin 1945 Provider Department [facility] Family History Family history unknown: Yes [facility] Office Visiton 02-03-2024 Follow-up visit [id number] Miguel Herrerablayne Khan 1945 Provider Department Center 02/03/2024 ANISHA JACOBS Family History Family history unknown: Yes Level of Service:61603 [place] OFFICE/OUTPATIENT ESTABLISHED MOD MDM 30 MIN [facility] Office Visiton 11-12-2023 Follow-up visit [id number] Sylvia Herrera Erin 1945 Provider Department Center 11/12/2023 ANISHA JACOBS Family History Family history unknown: Yes Level of Service:20112 [place] OFFICE/OUTPATIENT ESTABLISHED MOD MDM 30-39 MIN [facility] 36on 10-26-2023 36 Her tacrolimus level from 10/16/2023 was 1.4. still very low. I believe she is currently taking tacrolimus (Prograf) 0.5 mg bid. I want her to increase to 1 mg bid and obtain another trough level in 2-3 weeks. [facility] Telephoneon 10-26-2023 Telephone [id number] Sylvia Herrera Erin 1945 Provider Department Center 10/26/2023 ANISHA JACOBS Family History Family history unknown: Yes [facility] Orders Onlyon 09-30-2023 Orders Only [id number] Sylvia Herrera Erin 1945 F Date Provider Department Center 09/30/2023 Paresh8-KAELA TURNER [facility] Family History Family history unknown: Yes Normal [facility] CHEMISTRYOrdered By: SYSTEM SYSTEM on 04-08-2023 [...] 42 mL/min/1.73 m2 Low >=59mL/min/ 1.[address] [facility] Chem S Glucose [...] 35 mL/min/1.73 m2 Low >=59mL/min/ 1.[address] [facility] Chem S Glucose [Mass/Vol] 139 [...] 7.3 E9/L Normal 4.0 - 11.0 E9/L [facility] HemeAutoSS INFLUENZA A AND B AGon 03-05 INFLUANEGH SEE BELOW Normal [facility] Comment on above: Result Comment: Nega tive for Flu A protein angiten. Infection due to Flu A cannot be ruled out. Flu A angiten in the sample may be below the detection limit of the test. Performed By: #### E RUR #### [facility] [address] [place] [address] Dr. Hardeep Rivera INFLUBNEGH SEE BELOW Normal [facility] Comment on above: Result Comment: Nega tive for Flu B protein antigen. Infection due to Flu B cannot be ruled out. Flu B antigen in the sample may be below the detection limit of the test. Performed By: #### E RUR #### [facility] [address] [place] [address] Dr. Hardeep Rivera INFLUENZA A AG Negative Normal NEGATIVE SEE COMMENT [facility] Comment on above: Performed By: #### E RUR #### [facility] [address] [place] [address] Dr. Hardeep Rivera INFLUENZA B AG Negative Normal NEGATIVE SEE COMMENT [facility] Comment on above: Performed By: #### E RUR #### [facility] [address] [place] [address] Dr. Hardeep Rivera SYMPTOMATIC COVID-19 ANTIGEN on 03-05-2023 EUA Statement SEE BELOW Normal [facility] Comment on above: Result Comment: This [...] revoked sooner. Performed By: #### C VDAGS ####[facility] [address] [place] [address]DrLaura Rivera SARS-CoV-2 (COVID-19) RNA ULICES+probe Ql (Unsp spec) Positive Abnormal NEGATIVE [facility] Comment on above: Performed By: #### C VDAGS ####[facility] [address] [place] [address]DrLaura Rivera FK506 (TACROLIMUS) WHOLE BLO ODon 02-28-2023 Tacrolimus (FK506), Blood 5.8 ng/mL Normal 2.0-20.0 [facility] Comment on above: Result Comment: Trou gh (immediately following transplant) 15.0 . Trough (steady state, 2 weeks or more after transplant): 3.0 - 8.0 . Performed by LC-MS/MS technology. Performed By: #### F K506T ####[facility] [address] [place], [place] [address]Dr. Hardeep Rivera CBC AUTO DIFFon 02-14-2023 BASO # 0.0 103/ul Normal 0.0-0.1 [facility] Comment on above: Performed By: #### RANDALL OLSON #### [facility] [address] [place] [address] Dr. Hardeep Rivera Basophils/100 WBC (Bld) 0.5 % Normal 0.2-2.0 [facility] Comment on above: Performed By: #### RANDALL OLSON #### [facility] [address] [place] [address] Dr. Hardeep Rivera EO # 0.2 103/ul Normal 0.0-0.7 [facility] Comment on above: Performed By: #### RANDALL OLSON #### [facility] [address] [place] [address] Dr. Hardeep Rivera Eosinophils/100 WBC (Bld) 3.5 % Normal 0.9-7.0 [facility] Comment on above: Performed By: #### RANDALL OLSON #### [facility] [address] [place] [address] Dr. Hardeep Rivera Erythrocyte distribution width (RBC) [Ratio] 12.3 % Normal 11.0-15.0 [facility] Comment on above: Performed By: #### Deedee PINON UMICRO #### [facility] [address] [place] [address] Dr. Hardeep Rivera Hematocrit (Bld) [Volume fraction] 38.7 % Normal 36.0-48.0 [facility] Comment on above: Performed By: #### Deedee PINON UMICRO #### [facility] [address] [place] [address] Dr. Hardeep Rivera Hemoglobin (Bld) [Mass/Vol] 12.6 g/dL Normal 12.0-16.0 [facility] Comment on above: Performed By: #### Deedee PINON UMICRO #### [facility] [address] [place] [address] Dr. Hardeep Rivera IG # 0.03 10e3/ul Normal 0.00-0.03 [facility] Comment on above: Performed By: #### Deedee PINON UMICRO #### [facility] [address] [place] [address] Dr. Hardeep Rivera IG % 0.5 % Normal 0.0-0.5 [facility] Comment on above: Performed By: #### Deedee PINON UMICRO #### [facility] [address] [place] [address] Dr. Hardeep Rivera LYMPH # 0.8 103/ul Critically low 1.2-3.8 [facility] Comment on above: Performed By: #### Deedee PINON UMICRO #### [facility] [address] [place] [address] Dr. Hardeep Rivera Lymphocytes/100 WBC (Bld) 13.2 % Critically low 20.5-60.0 [facility] Comment on above: Performed By: #### Deedee PINON, UMICRO #### [facility] [address] [place] [address] Dr. Hardeep Rivera MANUAL DIFF REQ NO Normal [facility] Comment on above: Performed By: #### HARI OLSONRO #### [facility] [address] [place] [address] Dr. Hardeep Rivera MCH (RBC) [Entitic mass] 28.3 pg Normal 26.7-34.0 [facility] Comment on above: Performed By: #### HARI OLSONRO #### [facility] [address] [place] [address] Dr. Hardeep Rivera MCHC (RBC) [Mass/Vol] 32.6 g/dL Normal 29.9-35.2 [facility] Comment on above: Performed By: #### HARI OLSONRO #### [facility] [address] [place] [address] Dr. Hardeep Rivera MCV (RBC) [Entitic vol] 87.0 fL Normal 81.0-99.0 [facility] Comment on above: Performed By: #### HARI OLSONRO #### [facility] [address] [place] [address] Dr. Hardeep Rivera MONO # 0.8 103/ul Normal 0.3-0.8 [facility] Comment on above: Performed By: #### HARI OLSONRO #### [facility] [address] [place] [address] Dr. Hardeep Rivera Monocytes/100 WBC (Bld) 12.9 % Critically high 1.7-12.0 [facility] Comment on above: Performed By: #### HARI OLSONRO #### [facility] [address] [place] [address] Dr. Hardeep Rivera NEUT # 4.4 103/ul Normal 1.4-6.5 [facility] Comment on above: Performed By: #### HARI OLSONRO #### [facility] [address] [place] [address] Dr. Hardeep Rivera Neutrophils/100 WBC (Bld) 69.4 % Normal 43.0-75.0 [facility] Comment on above: Performed By: #### E RUR, UMICRO #### [facility] [address] [place], [place] [address] Dr. Hardeep Rivera Platelet mean volume (Bld) [Entitic vol] 9.0 fL Critically low 9.5-13.5 [facility] Comment on above: Performed By: #### E KATHRIN, UMICRO #### [facility] [address] [place], [place] [address] Dr. Hardeep Rivera PLT 205 103/ul Normal 150-450 [facility] Comment on above: Performed By: #### E KATHRIN, UMICRO #### [facility] [address] [place], [place] [address] Dr. Hardeep Rivera RBC 4.45 106/ul Normal 4.20-5.40 [facility] Comment on above: Performed By: #### E KATHRIN, UMICRO #### [facility] [address] [place] [address] [address] Hardeep Rivera WBC 6.3 103/ul Normal 4.0-11.0 [facility] Comment on above: Performed By: #### Deedee PINON, UMICRO #### [facility] [address] [place], [place] [address] HEAD WO CONon [...] CAMERON NELSON Date: 2023-02-14 15:46 Normal [facility] ER URINE PROFILEon 3 Bilirubin Ql (U) Negative Normal NEGATIVE [facility] Comment on above: Performed By: #### RANDALL OLSON #### [facility] [address] [place] [address] Dr. Hardeep Rivera Clarity (U) CLEAR Normal CLEAR [facility] Comment on above: Performed By: #### HARI OLSONRO #### [facility] [address] [place] [address] Dr. Hardeep Rivera Color (U) LT. YELLOW Normal YELLOW [facility] Comment on above: Performed By: #### HARI OLSONRO #### [facility] [address] [place] [address] Dr. Hardeep Rivera ERUAHD A micrscopic examina tion will be performed if indicated. Normal [facility] Comment on above: Performed By: #### HARI OLSONRO #### [facility] [address] [place] [address] Dr. Hardeep Rivera Glucose Ql (U) Negative Normal NEGATIVE [facility] Comment on above: Performed By: #### HARI OLSONRO #### [facility] [address] [place] [address] Dr. Hardeep Rivera Hemoglobin Ql (U) TRACE-INTACT Abnormal NEGATIVE [facility] Comment on above: Performed By: #### HARI OLSONRO #### [facility] [address] [place] [address] Dr. Hardeep Rivera Ketones Ql (U) Negative Normal NEGATIVE [facility] Comment on above: Performed By: #### HARI OLSONRO #### [facility] [address] [place] [address] Dr. Hardeep Rivera LEUKOCYTES Negative Normal NEGATIVE [facility] Comment on above: Performed By: #### Deedee PINON, UMICRO #### [facility] [address] [place] [address] [address] Hardeep Rivera Nitrite Ql (U) Negative Normal NEGATIVE [facility] Comment on above: Performed By: #### E KATHRIN, UMICRO #### [facility] [address] [place] [address] [address] Hardeep Rivera pH (U) 7.0 [pH] Normal 5-9 [facility] Comment on above: Performed By: #### Deedee PINON, UMICRO #### [facility] [address] [place] [address] [address] Hardeep Rivera Protein (U) [Mass/Vol] 30 mg/dL Abnormal NEGATIVE/ TRACE [facility] Comment on above: Performed By: #### Deedee PINON, UMICRO #### [facility] [address] [place] [address] [address] Hardeep Rivera SPEC GRAVITY 1.010 Normal 1.005-<=1.[address] [place] [address] Comment on above: Performed By: #### Deedee PINON UMICRO #### [facility] [address] [place] [address] [address] Hardeep Rivera UR MICRO IND INDICATED Normal [facility] Comment on above: Performed By: #### Deedee PINON, UMICRO #### [facility] [address] [place] [address] [address] Hardeep Rivera Urobilinogen Qn (U) 0.2 {Kevon'U}/dL Normal 0.2 - 1. 0 [facility] Comment on above: Performed By: #### Deedee PINON UMICRO #### [facility] [address] [place] [address] [address] Hardeep Rivera PROF 14(COMP METB)on 023 Albumin [Mass/Vol] 3.5 g/dL Normal 3.4-5.0 [facility] Comment on above: Performed By: #### H STROPN, CMP, TSH ####[facility] [address] [place] [address]Dr. Hardeep Rivera Albumin/Globulin [Mass ratio] 1.2 {ratio} Normal [facility] Comment on above: Performed By: #### H TYLER CMP, TSH ####[facility] [address] [place] [address]Dr. Hardeep Rivera ALP [Catalytic activity/Vol] 153 U/L Critically high 46-116 [facility] Comment on above: Performed By: #### H TYLER CMP, TSH ####[facility] [address] [place] [address]Dr. Hardeep Rivera ALT [Catalytic activity/Vol] 21 U/L Normal 14-59 [facility] Comment on above: Performed By: #### H TYLER CMP, TSH ####[facility] [address] [place] [address]Dr. Hardeep Rivera Anion gap [Moles/Vol] 9.3 mmol/L Normal [facility] Comment on above: Performed By: #### H TYLER CMP, TSH ####[facility] [address] [place] [address]Dr. Hardeep Rivera AST [Catalytic activity/Vol] 23 U/L Normal 15-37 [facility] Comment on above: Performed By: #### H TYLER CMP, TSH ####[facility] [address] [place] [address]Dr. Hardeep Rivera Bilirubin [Mass/Vol] 0.6 mg/dL Normal 0.2-1.0 [facility] Comment on above: Performed By: #### H TYLER CMP, TSH ####[facility] [address] [place] [address]Dr. Hardeep Rivera Calcium [Mass/Vol] 8.4 mg/dL Critically low 8.5-10.1 Th [facility] Comment on above: Performed By: #### H STRONATHANIEL CMP, TSH ####[facility] [address] [place] [address]Dr. Preethiarabella Rivera Chloride [Moles/Vol] 96 mmol/L Critically low 98-107 [facility] Comment on above: Performed By: #### H STRONATHANIEL CMP, TSH ####[facility] [address] [place] [address]Dr. Hardeep Rivera CO2 [Moles/Vol] 29.3 mmol/L Normal 21.0-32.0 [facility] Comment on above: Performed By: #### H STROPN, CMP, TSH ####[facility] [address] [place] [address]Dr. Hardeep Rivera Creatinine [Mass/Vol] 1.16 mg/dL Critically high 0.55-1.02 [facility] Comment on above: Performed By: #### H STROPN, CMP, TSH ####[facility] [address] [place] [address]Dr. Hardeep Rivera EGFR-AF JAMAICAN 55 mL/min/1.73m2 Critically low >=60 [facility] Comment on above: Performed By: #### H STROPN, CMP, TSH ####[facility] [address] [place] [address]Dr. Hardeep Rivera EGFR-NON AF JAMAICAN 45 mL/min/1.73m2 Critically low >=60 [facility] Comment on above: Performed By: #### H STROPN, CMP, TSH ####[facility] [address] [place] [address]Dr. Hardeep Rivera Globulin (S) [Mass/Vol] 2.9 g/dL Normal [facility] Comment on above: Performed By: #### H STROPN, CMP, TSH ####[facility] [address] [place] [address]Dr. Preethiarabella Miguel Glucose [Mass/Vol] 105 mg/dL Normal 74-106 [facility] Comment on above: Performed By: #### H STROPN, CMP, TSH ####[facility] [address] [place] [address]Dr. Hardeep Rivera Potassium [Moles/Vol] 4.6 mmol/L Normal 3.5-5.1 [facility] Comment on above: Performed By: #### H STROPN, CMP, TSH ####[facility] [address] [place] [address]Dr. Hardeep Rivera Protein [Mass/Vol] 6.4 g/dL Normal 6.4-8.2 [facility] Comment on above: Performed By: #### H GLADIS SCOTT, TSH ####[facility] [address] [place] [address]Dr. Hardeep Rivera Sodium [Moles/Vol] 130 mmol/L Critically low 136-145 Th e [facility] Comment on above: Performed By: #### H GLADIS SCOTT, TSH ####[facility] [address] [place] [address]Dr. Hardeep Rivera Urea nitrogen [Mass/Vol] 27.0 mg/dL Critically high 7.0-18.0 [facility] Comment on above: Performed By: #### H GLADIS SCOTT, TSH ####[facility] [address] [place], [place] [address]Dr. Hardeep Rivera Urea nitrogen/Creatinine [Mass ratio] 23.3 mg/mg Normal [facility] Comment on above: Performed By: #### Samy SCOTT CMP, TSH ####[facility] [address] [place], [place] [address]Dr. Hardeep Rivera PROTIMEon 02-14-2023 INR Coag (PPP) [Relative time] 1.07 {INR} Normal [facility] Comment on above: Performed By: #### P T, PTT ####[facility] [address] [place], [place] [address]Dr. Hardeep Rivera INR GUIDELINES SEE BELOW Normal [facility] Comment on above: Result Comment: EDMUND RED INR: 2.0 - 3.0 CONDITIONS NOT LISTED BELOW 2.5 - 3.5 FOR PROSTHETIC HEART VALVE REPLACEMENT 2.5 - 3.5 RECURRENT THROMBOSIS Performed By: #### P T, PTT ####[facility] [address] [place], [place] [address]Dr. Hardeep Rivera PT Coag (PPP) [Time] 11.3 s Normal 9.0-11.6 [facility] Comment on above: Performed By: #### P T, PTT ####[facility] [address] [place], [place] [address]Dr. Hardeep Rivera PTTon 02-14-2023 aPTT Coag (Bld) [Time] 29.1 s Normal 22.3-36.2 [facility] Comment on above: Performed By: #### P T, PTT ####[facility] [address] [place] [address]Dr. Hardeep Rivera TROPONIN, HIGH SENSITIVITYon 02-14-2023 HSTROP 10.4 pg/mL Normal 4.0-51.3 [facility] Comment on above: Result Comment: CUT- OFF POINTS HAVE BEEN ESTABLISHED BASED ON THE FOURTH UNIVERSAL DEFINITIONS OF MYOCARDIAL INFARCTION. THE UPPER REFERENCE LIMIT (URL) OF TROPONIN, DEFINED THE 99TH PERCENTILE OF cTnI DISTRIBUTION IN A REFERENCE POPULATION, HAS BEEN CONFIRMED THE DECISION THRESHOLD FOR OK DIAGNOSIS. Performed By: #### H GLADIS SCOTT, TSH ####[facility] [address] [place] [address]Dr. Hardeep Rivera TSHon 02-14-2023 TSH 1.237 uIU/mL Normal 0.358-3.740 [facility] Comment on above: Performed By: #### H GLADIS SCOTT, TSH ####[facility] [address] [place] [address]Dr. Hardeep Rivera URINE MICROSCOPIC ONLYon BACTERIA NONE SEEN Normal NONE SEEN [facility] Comment on above: Performed By: #### Deedee PINON UMICRO #### [facility] [address] [place] [address] [address] Hardeep Rivera Bacteria identified Cx Nom (U) NOT INDICATED Normal [facility] Comment on above: Performed By: #### E RUR, UMICRO #### [facility] [address] [place] [address] Dr. Hardeep Rivera CAST NONE SEEN Normal NONE SEEN [facility] Comment on above: Performed By: #### E COLLINSR, UMICRO #### [facility] [address] [place] [address] Dr. Hardeep Rivera Crystals LM Nom (Urine sed) NONE SEEN Normal NONE SEEN [facility] Comment on above: Performed By: #### E RUR, UMICRO #### [facility] [address] [address] [address] Hardeep Rivera Epithelial cells LM Ql (Urine sed) NONE SEEN Normal NONE SEEN /RARE [facility] Comment on above: Performed By: #### E KATHRIN UMICRO #### [facility] [address] [address] [address] Hardeep Rivera MUCOUS NONE SEEN Normal NONE SEEN [facility] Comment on above: Performed By: #### E KATHRIN UMBENNETTRO #### [facility] [address] [address] [address] Hardeep Rivera RBC 0-2 Normal 0-2 [facility] Comment on above: Performed By: #### E HARI PINONRO #### [facility] [address] [address] [address] Hardeep Rivera WBC NONE SEEN Normal NONE SEEN [facility] Comment on above: Performed By: #### Deedee PINON UMBENNETTRO #### [facility] [address] [address] [address] Hardeep Rivera XR CHEST 1 Von [...] JAZLYN DUBOSE Date: 2023-02-14 15:50 Normal [facility] FK506 (TACROLIMUS) WHOLE BLO ODon 02-13-2023 Tacrolimus (FK506), Blood 1.4 ng/mL Critically low 2.0-20.0 [facility] Comment on above: Result Comment: Trou gh (immediately following transplant) 15.0 . Trough (steady state, 2 weeks or more after transplant): 3.0 - 8.0 . Performed by LC-MS/MS technology. Performed By: #### E RUR #### [facility] [address] [place] [address] Dr. Hardeep Rivera PROF 14(COMP METB)on 03-15-2 023 Albumin [Mass/Vol] 3.5 g/dL Normal 3.4-5.0 [facility] Comment on above: Performed By: #### C MP ####[facility] [address] [address]Dr. Preethiarabella Miguel Albumin/Globulin [Mass ratio] 1.2 {ratio} Normal [facility] Comment on above: Performed By: #### C MP ####[facility] [address] [address]Dr. Hardeep Rivera ALP [Catalytic activity/Vol] 149 U/L Critically high 46-116 [facility] Comment on above: Performed By: #### C MP ####[facility] [address] [place], [place] [address]Dr. Hardeep Rivera ALT [Catalytic activity/Vol] 19 U/L Normal 14-59 [facility] Comment on above: Performed By: #### C MP ####[facility] [address] [place], [place] [address]Dr. Hardeep Rivera Anion gap [Moles/Vol] 11.7 mmol/L Normal [facility] Comment on above: Performed By: #### C MP ####[facility] [address] [place], [place] [address]Dr. Hardeep Rivera AST [Catalytic activity/Vol] 27 U/L Normal 15-37 [facility] Comment on above: Performed By: #### C MP ####[facility] [address] [place], [place] [address]Dr. Hardeep Rivera Bilirubin [Mass/Vol] 0.6 mg/dL Normal 0.2-1.0 [facility] Comment on above: Performed By: #### C MP ####[facility] [address] [place], [place] [address]Dr. Hardeep Rivera Calcium [Mass/Vol] 8.5 mg/dL Normal 8.5-10.1 [facility] Comment on above: Performed By: #### C MP ####[facility] [address] [address]Dr. Hardeep Rivera Chloride [Moles/Vol] 96 mmol/L Critically low 98-107 [facility] Comment on above: Performed By: #### C MP ####[facility] [address] [address]Dr. Hardeep Rivera CO2 [Moles/Vol] 28.1 mmol/L Normal 21.0-32.0 [facility] Comment on above: Performed By: #### C MP ####[facility] [address] [address]Dr. Hardeep Miguel Creatinine [Mass/Vol] 1.24 mg/dL Critically high 0.55-1.02 [facility] Comment on above: Performed By: #### C MP ####[facility] [address] [address]Dr. Hardeep Miguel EGFR-AF JAMAICAN 51 mL/min/1.73m2 Critically low >=60 [facility] Comment on above: Performed By: #### C MP ####[facility] [address] [address]Dr. Hardeep Miguel EGFR-NON AF JAMAICAN 42 mL/min/1.73m2 Critically low >=60 [facility] Comment on above: Performed By: #### C MP ####[facility] [address] [place], [place] [address]Dr. Hardeep Miguel Globulin (S) [Mass/Vol] 3.0 g/dL Normal [facility] Comment on above: Performed By: #### C MP ####[facility] [address] [address]Dr. Hardeep Rivera Glucose [Mass/Vol] 141 mg/dL Critically high 74-106 [facility] Comment on above: Performed By: #### C MP ####[facility] [address] [id number]. Hardeep Miguel Potassium [Moles/Vol] 4.8 mmol/L Normal 3.5-5.1 [facility] Comment on above: Performed By: #### C MP ####[facility] [address] [address]Dr. Preethiarabella Rivera Protein [Mass/Vol] 6.5 g/dL Normal 6.4-8.2 [facility] Comment on above: Performed By: #### C MP ####[facility] [address] [address]DrLaura Rivera Sodium [Moles/Vol] 131 mmol/L Critically low 136-145 [facility] Comment on above: Performed By: #### C MP ####[facility] [address] [address]Dr. Hardeep Rivera Urea nitrogen [Mass/Vol] 29.0 mg/dL Critically high 7.0-18.0 [facility] Comment on above: Performed By: #### C MP ####[facility] [address] [place], [place] [address]Dr. Hardeep Rivera Urea nitrogen/Creatinine [Mass ratio] 23.4 mg/mg Normal [facility] Comment on above: Performed By: #### C MP ####[facility] [address] [place], [place] [address]DrLaura Rivera BNPon 01-09-2023 Natriuretic peptide B (Bld) [Mass/Vol] 336.0 pg/mL Normal <=1,800.0 [facility] Comment on above: Performed By: #### C MP, TSH, BNP, T7 ####[facility] [address] [place], [place] [address]DrLaura Rivera CBC AUTO DIFFon 01-09-2023 BASO # 0.0 103/ul Normal 0.0-0.1 [facility] Comment on above: Performed By: #### C BC #### [facility] [address] [place] [address] Dr. Hardeep Rivera Basophils/100 WBC (Bld) 0.4 % Normal 0.2-2.0 [facility] Comment on above: Performed By: #### C BC #### [facility] [address] [place] [address] Dr. Hardeep Rivera EO # 0.3 103/ul Normal 0.0-0.7 [facility] Comment on above: Performed By: #### C BC #### [facility] [address] [place] [address] Dr. Hardeep Rivera Eosinophils/100 WBC (Bld) 4.4 % Normal 0.9-7.0 [facility] Comment on above: Performed By: #### C BC #### [facility] [address] [place] [address] Dr. Hardeep Rivera Erythrocyte distribution width (RBC) [Ratio] 12.3 % Normal 11.0-15.0 [facility] Comment on above: Performed By: #### C BC #### [facility] [address] [place] [address] Dr. Hardeep Rivera Hematocrit (Bld) [Volume fraction] 43.3 % Normal 36.0-48.0 [facility] Comment on above: Performed By: #### C BC #### [facility] [address] [place] [address] Dr. Hardeep Rivera Hemoglobin (Bld) [Mass/Vol] 13.5 g/dL Normal 12.0-16.0 [facility] Comment on above: Performed By: #### C BC #### [facility] [address] [place] [address] Dr. Hardeep Rivera IG # 0.02 10e3/ul Normal 0.00-0.03 [facility] Comment on above: Performed By: #### C BC #### [facility] [address] [place] [address] Dr. Hardeep Rivera IG % 0.3 % Normal 0.0-0.5 [facility] Comment on above: Performed By: #### C BC #### [facility] [address] [place] [address] Dr. Hardeep Rivera LYMPH # 1.1 103/ul Critically low 1.2-3.8 [facility] Comment on above: Performed By: #### C BC #### [facility] [address] [place] [address] Dr. Hardeep Rivera Lymphocytes/100 WBC (Bld) 16.0 % Critically low 20.5-60.0 [facility] Comment on above: Performed By: #### C BC #### [facility] [address] [place] [address] Dr. Hardeep Rivera MANUAL DIFF REQ NO Normal [facility] Comment on above: Performed By: #### C BC #### [facility] [address] [place] [address] Dr. Hardeep Rivera MCH (RBC) [Entitic mass] 28.4 pg Normal 26.7-34.0 [facility] Comment on above: Performed By: #### C BC #### [facility] [address] [place] [address] Dr. Hardeep Rivera MCHC (RBC) [Mass/Vol] 31.2 g/dL Normal 29.9-35.2 [facility] Comment on above: Performed By: #### C BC #### [facility] [address] [place] [address] Dr. Hardeep Rivera MCV (RBC) [Entitic vol] 91.0 fL Normal 81.0-99.0 [facility] Comment on above: Performed By: #### C BC #### [facility] [address] [place] [address] Dr. Hardeep Rivera MONO # 1.0 103/ul Critically high 0.3-0.8 [facility] Comment on above: Performed By: #### C BC #### [facility] [address] [place] [address] Dr. Hardeep Rivera Monocytes/100 WBC (Bld) 14.7 % Critically high 1.7-12.0 [facility] Comment on above: Performed By: #### C BC #### [facility] [address] [place] [address] Dr. Hardeep Rivera NEUT # 4.4 103/ul Normal 1.4-6.5 [facility] Comment on above: Performed By: #### C BC #### [facility] [address] [place] [address] Dr. Hardeep Rivera Neutrophils/100 WBC (Bld) 64.2 % Normal 43.0-75.0 [facility] Comment on above: Performed By: #### C BC #### [facility] [address] [place] [address] Dr. Hardeep Rivera Platelet mean volume (Bld) [Entitic vol] 9.5 fL Normal 9.5-13.5 [facility] Comment on above: Performed By: #### C BC #### [facility] [address] [address] [address] Hardeep Rivera PLT 238 103/ul Normal 150-450 [facility] Comment on above: Performed By: #### C BC #### [facility] [address] [address] [address] Hardeep Rivera RBC 4.76 106/ul Normal 4.20-5.40 [facility] Comment on above: Performed By: #### C BC #### [facility] [address] [place] [address] Dr. Hardeep Rivera WBC 6.8 103/ul Normal 4.0-11.0 [facility] Comment on above: Performed By: #### C BC #### [facility] [address] [place] [address] Dr. Hardeep Rivera FREE THYROXINE INDEX T7on FTI 3.96 Normal 1.30-4.50 [facility] Comment on above: Performed By: #### C MP, TSH, BNP, T7 ####[facility] [address] [address]. Hardeep Rivera T3U 35.0 % Normal 30.0-39.0 [facility] Comment on above: Performed By: #### C MP, TSH, BNP, T7 ####[facility] [address] [id number]. Hardeep Rivera T4 [Mass/Vol] 11.30 ug/dL Normal 4.80-13.90 [facility] Comment on above: Performed By: #### C MP, TSH, BNP, T7 ####[facility] [address] [id number]. Hardeep Rivera PROF 14(COMP METB)on 023 Albumin [Mass/Vol] 3.9 g/dL Normal 3.4-5.0 [facility] Comment on above: Performed By: #### C MP, TSH, BNP, T7 ####[facility] [address] [address]Dr. Preethiarabella Rivera Albumin/Globulin [Mass ratio] 1.2 {ratio} Normal [facility] Comment on above: Performed By: #### C MP, TSH, BNP, T7 ####[facility] [address] [address]Dr. Hardeep Rivera ALP [Catalytic activity/Vol] 151 U/L Critically high 46-116 [facility] Comment on above: Performed By: #### C MP, TSH, BNP, T7 ####[facility] [address] [place], [place] [address]Dr. Hardeep Rivera ALT [Catalytic activity/Vol] 30 U/L Normal 14-59 [facility] Comment on above: Performed By: #### C MP, TSH, BNP, T7 ####[facility] [address] [place], [place] [address]Dr. Hardeep Rivera Anion gap [Moles/Vol] 15.6 mmol/L Normal [facility] Comment on above: Performed By: #### C MP, TSH, BNP, T7 ####[facility] [address] [place], [place] [address]Dr. Hardeep Rivera AST [Catalytic activity/Vol] 23 U/L Normal 15-37 [facility] Comment on above: Performed By: #### C MP, TSH, BNP, T7 ####[facility] [address] [place], [place] [address]Dr. Hardeep Rivera Bilirubin [Mass/Vol] 0.7 mg/dL Normal 0.2-1.0 [facility] Comment on above: Performed By: #### C MP, TSH, BNP, T7 ####[facility] [address] [place], [place] [address]Dr. Hardeep Rivera Calcium [Mass/Vol] 9.0 mg/dL Normal 8.5-10.1 [facility] Comment on above: Performed By: #### C MP, TSH, BNP, T7 ####[facility] [address] [place], [place] [address]Dr. Hardeep Rivera Chloride [Moles/Vol] 97 mmol/L Critically low 98-107 [facility] Comment on above: Performed By: #### C MP, TSH, BNP, T7 ####[facility] [address] [address]Dr. Hardeep Rivera CO2 [Moles/Vol] 26.1 mmol/L Normal 21.0-32.0 [facility] Comment on above: Performed By: #### C MP, TSH, BNP, T7 ####[facility] [address] [address]Dr. Hardeep Rivera Creatinine [Mass/Vol] 1.78 mg/dL Critically high 0.55-1.02 [facility] Comment on above: Performed By: #### C MP, TSH, BNP, T7 ####[facility] [address] [address]Dr. Hardeep Rivera EGFR-AF JAMAICAN 33 mL/min/1.73m2 Critically low >=60 [facility] Comment on above: Performed By: #### C MP, TSH, BNP, T7 ####[facility] [address] [place], [place] [address]Dr. Hardeep Rivera EGFR-NON AF JAMAICAN 28 mL/min/1.73m2 Critically low >=60 [facility] Comment on above: Performed By: #### C MP, TSH, BNP, T7 ####[facility] [address] [address]Dr. Hardeep Rivera Globulin (S) [Mass/Vol] 3.3 g/dL Normal [facility] Comment on above: Performed By: #### C MP, TSH, BNP, T7 ####[facility] [address] [address]Dr. Hardeep Rivera Glucose [Mass/Vol] 127 mg/dL Critically high 74-106 [facility] Comment on above: Performed By: #### C MP, TSH, BNP, T7 ####[facility] [address] [address]Dr. Hardeep Rivera Potassium [Moles/Vol] 3.7 mmol/L Normal 3.5-5.1 [facility] Comment on above: Performed By: #### C MP, TSH, BNP, T7 ####[facility] [address] [address]Dr. Hardeep Rivera Protein [Mass/Vol] 7.2 g/dL Normal 6.4-8.2 [facility] Comment on above: Performed By: #### C MP, TSH, BNP, T7 ####[facility] [address] [address]Dr. Hardeep Rivera Sodium [Moles/Vol] 135 mmol/L Critically low 136-145 Th [facility] Comment on above: Performed By: #### C MP, TSH, BNP, T7 ####[facility] [address] [address]Dr. Hardeep Rivera Urea nitrogen [Mass/Vol] 54.0 mg/dL Critically high 7.0-18.0 [facility] Comment on above: Performed By: #### C MP, TSH, BNP, T7 ####[facility] [address] [address]Dr. Hardeep Rivera Urea nitrogen/Creatinine [Mass ratio] 30.3 mg/mg Normal [facility] Comment on above: Performed By: #### C MP, TSH, BNP, T7 ####[facility] [address] [address]Dr. Hardeep Rivera TSHon 01-09-2023 TSH 1.097 uIU/mL Normal 0.358-3.740 [facility] Comment on above: Performed By: #### C MP, TSH, BNP, T7 ####[facility] [address] [address]Dr. Hardeep Rivera ECHOCARDIO M/2D COMPLETEon 0 12-13-2022 ECHOCARDIO M/2D COMPLETE Patient: SYLVIA HERRERA Exam Date: 12/13/2022 : 1945 Gender:F Ordering : [facility] Admission #: [id number] Family : Order #: [id number] CLICK HERE TO VIEW EXAM ECHOCARDIOGRAM REPORT [...] Area (VTI): 2.23 cm2, 2.23 cm2 Deceleration Latimer: 1.44 m/s2 Pressure Half-Time: 850.98 ms Peak [...] Nolan M.D. on 12/14/2022 at 13:49 Normal [facility] US ALAN DOP LEG BILon 023 US [...] HAI FOSTER Date: 2022-12-13 10:51 Normal [facility] BNPon 12-11-2022 Natriuretic peptide B (Bld) [Mass/Vol] 457.0 pg/mL Normal <=1,800.0 [facility] Comment on above: Performed By: #### RANDALL OLSON #### [facility] [address] [place] [address] Dr. Hardeep Rivera CBC AUTO DIFFon 12-11-2022 BASO # 0.0 103/ul Normal 0.0-0.1 [facility] Comment on above: Performed By: #### RANDALL OLSON #### [facility] [address] [place] [address] Dr. Hardeep Rivera Basophils/100 WBC (Bld) 0.4 % Normal 0.2-2.0 [facility] Comment on above: Performed By: #### RANDALL OLSON #### [facility] [address] [place] [address] Dr. Hardeep Rivera EO # 0.2 103/ul Normal 0.0-0.7 [facility] Comment on above: Performed By: #### RANDALL OLSON #### [facility] [address] [place] [address] Dr. Hardeep Rivera Eosinophils/100 WBC (Bld) 2.7 % Normal 0.9-7.0 [facility] Comment on above: Performed By: #### RANDALL OLSON #### [facility] [address] [place] [address] Dr. Hardeep Rivera Erythrocyte distribution width (RBC) [Ratio] 11.9 % Normal 11.0-15.0 [facility] Comment on above: Performed By: #### RANDALL OLSON #### [facility] [address] [place] [address] Dr. Hardeep Rivera Hematocrit (Bld) [Volume fraction] 40.2 % Normal 36.0-48.0 [facility] Comment on above: Performed By: #### E RUR, UMICRO #### [facility] [address] [address] [address] Hardeep Rivera Hemoglobin (Bld) [Mass/Vol] 13.5 g/dL Normal 12.0-16.0 [facility] Comment on above: Performed By: #### E RUR, UMICRO #### [facility] [address] [place] [address] Dr. Hardeep Rivera IG # 0.03 10e3/ul Normal 0.00-0.03 [facility] Comment on above: Performed By: #### E RUR, UMICRO #### [facility] [address] [place] [address] Dr. Hardeep Rivera IG % 0.4 % Normal 0.0-0.5 [facility] Comment on above: Performed By: #### E RUR, UMICRO #### [facility] [address] [place] [address] Dr. Hardeep Rivera LYMPH # 0.9 103/ul Critically low 1.2-3.8 [facility] Comment on above: Performed By: #### E RUR, UMICRO #### [facility] [address] [place] [address] Dr. Hardeep Rivera Lymphocytes/100 WBC (Bld) 11.3 % Critically low 20.5-60.0 [facility] Comment on above: Performed By: #### E RUR, UMICRO #### [facility] [address] [place] [address] Dr. Hardeep Rivera MANUAL DIFF REQ NO Normal [facility] Comment on above: Performed By: #### E RUR, UMICRO #### [facility] [address] [place] [address] Dr. Hardeep Rivera MCH (RBC) [Entitic mass] 28.4 pg Normal 26.7-34.0 [facility] Comment on above: Performed By: #### E RUR, UMICRO #### [facility] [address] [place] [address] Dr. Hardeep Rivera MCHC (RBC) [Mass/Vol] 33.6 g/dL Normal 29.9-35.2 [facility] Comment on above: Performed By: #### HARI OLSONRO #### [facility] [address] [place] [address] Dr. Hardeep Rivera MCV (RBC) [Entitic vol] 84.5 fL Normal 81.0-99.0 [facility] Comment on above: Performed By: #### HARI OLSONRO #### [facility] [address] [place] [address] Dr. Hardeep Rivera MONO # 1.0 103/ul Critically high 0.3-0.8 [facility] Comment on above: Performed By: #### HARI OLSONRO #### [facility] [address] [place] [address] Dr. Hardeep Rivera Monocytes/100 WBC (Bld) 12.5 % Critically high 1.7-12.0 [facility] Comment on above: Performed By: #### HARI OLSONRO #### [facility] [address] [place] [address] Dr. Hardeep Rivera NEUT # 5.9 103/ul Normal 1.4-6.5 [facility] Comment on above: Performed By: #### HARI OLSONRO #### [facility] [address] [place] [address] Dr. Hardeep Rivera Neutrophils/100 WBC (Bld) 72.7 % Normal 43.0-75.0 [facility] Comment on above: Performed By: #### HARI OLSONRO #### [facility] [address] [place] [address] Dr. Hardeep Rivera Platelet mean volume (Bld) [Entitic vol] 8.6 fL Critically low 9.5-13.5 [facility] Comment on above: Performed By: #### HARI OLSONRO #### [facility] [address] [place] [address] Dr. Hardeep Rivera PLT 226 103/ul Normal 150-450 [facility] Comment on above: Performed By: #### HARI OLSONRO #### [facility] [address] [place] [address] Dr. Hardeep Rivera RBC 4.76 106/ul Normal 4.20-5.40 [facility] Comment on above: Performed By: #### HARI OLSONRO #### [facility] [address] [place] [address] Dr. Hardeep Rivera WBC 8.2 103/ul Normal 4.0-11.0 [facility] Comment on above: Performed By: #### Deedee PINON UMICRO #### [facility] [address] [place] [address] Dr. Hardeep Rivera FREE THYROXINE INDEX T7on FTI 3.40 Normal 1.30-4.50 [facility] Comment on above: Performed By: #### AKSHAT OLSONICRO #### [facility] [address] [place] [address] Dr. Hardeep Rivera T3U 34.0 % Normal 30.0-39.0 [facility] Comment on above: Performed By: #### AKSHAT OLSONICRO #### [facility] [address] [place] [address] Dr. Hardeep Rivera T4 [Mass/Vol] 10.00 ug/dL Normal 4.80-13.90 [facility] Comment on above: Performed By: #### AKSHAT OLSONICRO #### [facility] [address] [place] [address] Dr. Hardeep Rivera PROF 14(COMP METB)on 023 Albumin [Mass/Vol] 3.8 g/dL Normal 3.4-5.0 [facility] Comment on above: Performed By: #### Deedee PINON UMICRO #### [facility] [address] [place] [address] Dr. Hardeep Rivera Albumin/Globulin [Mass ratio] 1.1 {ratio} Normal [facility] Comment on above: Performed By: #### Deedee PINON UMICRO #### [facility] [address] [place] [address] Dr. Hardeep Rivera ALP [Catalytic activity/Vol] 192 U/L Critically high 46-116 [facility] Comment on above: Performed By: #### RANDALL OLSON #### [facility] [address] [place] [address] Dr. Hardeep Rivera ALT [Catalytic activity/Vol] 22 U/L Normal 14-59 [facility] Comment on above: Performed By: #### RANDALL OLSON #### [facility] [address] [place] [address] Dr. Hardeep Rivera Anion gap [Moles/Vol] 11.4 mmol/L Normal [facility] Comment on above: Performed By: #### RANDALL OLSON #### [facility] [address] [place] [address] Dr. Hardeep Rivera AST [Catalytic activity/Vol] 22 U/L Normal 15-37 [facility] Comment on above: Performed By: #### RANDALL OLSON #### [facility] [address] [place] [address] Dr. Hardeep Rivera Bilirubin [Mass/Vol] 0.5 mg/dL Normal 0.2-1.0 [facility] Comment on above: Performed By: #### RANDALL OLSON #### [facility] [address] [place] [address] Dr. Hardeep Rivera Calcium [Mass/Vol] 9.1 mg/dL Normal 8.5-10.1 [facility] Comment on above: Performed By: #### RANDALL OLSON #### [facility] [address] [place] [address] Dr. Hardeep Rivera Chloride [Moles/Vol] 93 mmol/L Critically low 98-107 [facility] Comment on above: Performed By: #### HARI OLSONRO #### [facility] [address] [place] [address] Dr. Hardeep Rivera CO2 [Moles/Vol] 30.8 mmol/L Normal 21.0-32.0 [facility] Comment on above: Performed By: #### HARI OLSONRO #### [facility] [address] [address] [address] Hardeep Rivera Creatinine [Mass/Vol] 1.49 mg/dL Critically high 0.55-1.02 [facility] Comment on above: Performed By: #### E KATHRIN, UMICRO #### [facility] [address] [address] [address] Hardeep Rivera EGFR-AF JAMAICAN 41 mL/min/1.73m2 Critically low >=60 [facility] Comment on above: Performed By: #### E COLLINSR, UMICRO #### [facility] [address] [address] [address] Hardeep Rivera EGFR-NON AF JAMAICAN 34 mL/min/1.73m2 Critically low >=60 [facility] Comment on above: Performed By: #### E KATHRIN, UMICRO #### [facility] [address] [place] [address] Dr. Hardeep Rivera Globulin (S) [Mass/Vol] 3.4 g/dL Normal [facility] Comment on above: Performed By: #### Deedee PINON, UMICRO #### [facility] [address] [address] [address] Hardeep Rivera Glucose [Mass/Vol] 116 mg/dL Critically high 74-106 [facility] Comment on above: Performed By: #### E KATHRIN, UMICRO #### [facility] [address] [address] [address] Hardeep Rivera Potassium [Moles/Vol] 4.2 mmol/L Normal 3.5-5.1 [facility] Comment on above: Performed By: #### Deedee GUADALUPER, UMICRO #### [facility] [address] [address] [address] Hardeep Rivera Protein [Mass/Vol] 7.2 g/dL Normal 6.4-8.2 [facility] Comment on above: Performed By: #### E COLLINSR, UMICRO #### [facility] [address] [address] [address] Hardeep Rivera Sodium [Moles/Vol] 131 mmol/L Critically low 136-145 Th [facility] Comment on above: Performed By: #### E COLLINSR UMICRO #### [facility] [address] [place] [address] Dr. Hardeep Rivera Urea nitrogen [Mass/Vol] 38.0 mg/dL Critically high 7.0-18.0 [facility] Comment on above: Performed By: #### E COLLINSR UMICRO #### [facility] [address] [place] [address] Dr. Hardeep Rivera Urea nitrogen/Creatinine [Mass ratio] 25.5 mg/mg Normal [facility] Comment on above: Performed By: #### AKSHAT OLSONICRO #### [facility] [address] [place] [address] Dr. Hardeep Rivera TSHon 12-11-2022 TSH 6.407 uIU/mL Critically high 0.358-3.740 [facility] Comment on above: Performed By: #### AKSHAT OLSONICRO #### [facility] [address] [place] [address] Dr. Hardeep Rivera [facility]01 SARS-CoV-2 (COVID-19) RNA ULICES+probe Ql (Unsp spec) Not detected Normal NOT DETECTED [facility] Comment on above: Result Comment: This test is not yet approved or cleared by the [place] FDA. When there are no FDA-approved or cleared tests available, and other criteria are met, FDA can make tests available under an emergency access mechanism called an Emergency Use Authorization (EUA). The EUA for this test is supported by the [place] of Health and Human Service's (HHS's) declaration [...] SARS-CoV-2. Performed By: #### C VDTB #### [facility] [address] [place] [address] Dr. Hardeep Rivera INFLUENZA A AND B AGon 11-14 [facility] SEE BELOW Normal [facility] Comment on above: Result Comment: Nega tive for Flu A protein angiten. Infection due to Flu A cannot be ruled out. Flu A angiten in the sample may be below the detection limit of the test. Performed By: #### E RUR, UMICRO #### [facility] [address] [place] [address] Dr. Hardeep Rivera [facility] SEE BELOW Normal [facility] Comment on above: Result Comment: Nega tive for Flu B protein antigen. Infection due to Flu B cannot be ruled out. Flu B antigen in the sample may be below the detection limit of the test. Performed By: #### E KATHRIN, UMICRO #### [facility] [address] [place] [address] Dr. Hardeep Rivera INFLUENZA A AG Negative Normal NEGATIVE SEE COMMENT [facility] Comment on above: Performed By: #### E KATHRIN, UMICRO #### [facility] [address] [place] [address] Dr. Hardeep Rivera INFLUENZA B AG Negative Normal NEGATIVE SEE COMMENT [facility] Comment on above: Performed By: #### Deedee PINON, UMICRO #### [facility] [address] [place] [address] Dr. Hardeep Rivera INTERNAL CONTROLS Within Normal Limits Normal Wi thin Normal Limits [facility] Comment on above: Performed By: #### E COLLINSR, UMICRO #### [facility] [address] [place] [address] Dr. Hardeep Rivera Covid-19 PCR ([facility])on SARS-CoV-2 (COVID-19) RNA ULICES+probe Ql (Unsp spec) Not detected Normal NOT DETECTED [facility] Comment on above: Result Comment: This test is not yet approved or cleared by the [place] FDA. When there are no FDA-approved or cleared tests available, and other criteria are met, FDA can make tests available under an emergency access mechanism called an Emergency Use Authorization (EUA). The EUA for this test is supported by the Fire Sprink[employer] Inspector of Health and Human Service's (HHS's) declaration [...] consistent with SARS-CoV-2. Performed By: #### [facility] #### [facility] [address] [place] [address] Dr. Hardeep Rivera INFLUENZA A AND B AGon 10-03 [facility] SEE BELOW Normal [facility] Comment on above: Result Comment: Nega tive for Flu A protein angiten. Infection due to Flu A cannot be ruled out. Flu A angiten in the sample may be below the detection limit of the test. Performed By: #### E KATHRIN UMICRO #### [facility] [address] [place] [address] Dr. Hardeep Rivera [facility] SEE BELOW Normal [facility] Comment on above: Result Comment: Nega tive for Flu B protein antigen. Infection due to Flu B cannot be ruled out. Flu B antigen in the sample may be below the detection limit of the test. Performed By: #### E COLLINSR, UMICRO #### [facility] [address] [place] [address] Dr. Hardepe Rivera INFLUENZA A AG Negative Normal NEGATIVE SEE COMMENT [facility] Comment on above: Performed By: #### E COLLINSR, UMICRO #### [facility] [address] [place] [address] Dr. Hardeep Rivera INFLUENZA B AG Negative Normal NEGATIVE SEE COMMENT [facility] Comment on above: Performed By: #### E RUR, UMICRO #### [facility] [address] [place], [place] [address] Dr. Hardeep Rivera INTERNAL CONTROLS Within Normal Limits Normal Wi thin Normal Limits [facility] Comment on above: Performed By: #### E RANDALL PINON #### [facility] [address] [place], [place] [address] Dr. Hardeep Clark 08-16-2022 CNPN Telephone ([facility]) -- SYLVIA HERRERA ([id number]) 1945 F Date Time Provider Department 08/16/22 SOY MCCANN [facility] ISACC During your visit today, we [...] mg by mouth three times daily. - tokigb-mecmqpea-pcpixfe (CREON) 24,000-76,000 -120,000 unit cpDR Take 3 [...] Status:Closed by SOY MCCANN on 08/16/22 Normal [facility] AMYLASEon 08-04-2022 Amylase [Catalytic activity/Vol] 155 U/L Critically high 25-115 [facility] Comment on above: Performed By: #### C ARGENIS, BRITTNEY MELGOZA ####[facility] [address] [address]Dr. Hardeep Rivera CBC AUTO DIFFon 08-04-2022 BASO # 0.0 103/ul Normal 0.0-0.1 [facility] Comment on above: Performed By: #### C BC ####[facility] [address] [address]Dr. Hardeep Miguel Basophils/100 WBC (Bld) 0.3 % Normal 0.2-2.0 [facility] Comment on above: Performed By: #### C BC ####[facility] [address] [place], [place] [address]Dr. Hardeep Rivera EO # 0.1 103/ul Normal 0.0-0.7 [facility] Comment on above: Performed By: #### C BC ####[facility] [address] [place], [place] [address]Dr. Hardeep Rivera Eosinophils/100 WBC (Bld) 1.2 % Normal 0.9-7.0 [facility] Comment on above: Performed By: #### C BC ####[facility] [address] [place], [place] [address]Dr. Hardeep Rivera Erythrocyte distribution width (RBC) [Ratio] 12.2 % Normal 11.0-15.0 [facility] Comment on above: Performed By: #### C BC ####[facility] [address] [place], [place] [address]Dr. Hardeep Rivera Hematocrit (Bld) [Volume fraction] 38.3 % Normal 36.0-48.0 [facility] Comment on above: Performed By: #### C BC ####[facility] [address] [place], [place] [address]Dr. Hardeep Rivera Hemoglobin (Bld) [Mass/Vol] 12.9 g/dL Normal 12.0-16.0 [facility] Comment on above: Performed By: #### C BC ####[facility] [address] [id number]. Hardeep Rivera IG # 0.02 10e3/ul Normal 0.00-0.03 [facility] Comment on above: Performed By: #### C BC ####[facility] [address] [id number]. Hardeep Rivera IG % 0.3 % Normal 0.0-0.5 [facility] Comment on above: Performed By: #### C BC ####[facility] [address] [address]Dr. Hardeep Rivera LYMPH # 1.1 103/ul Critically low 1.2-3.8 [facility] Comment on above: Performed By: #### C BC ####[facility] [address] [address]Dr. Preethiarabella Rivera Lymphocytes/100 WBC (Bld) 16.6 % Critically low 20.5-60.0 [facility] Comment on above: Performed By: #### C BC ####[facility] [address] [address]Dr. Hardeep Rivera MANUAL DIFF REQ NO Normal [facility] Comment on above: Performed By: #### C BC ####[facility] [address] [phone]. Hardeep Rivera MCH (RBC) [Entitic mass] 29.7 pg Normal 26.7-34.0 [facility] Comment on above: Performed By: #### C BC ####[facility] [address] [address]Dr. Hardeep Rivera MCHC (RBC) [Mass/Vol] 33.7 g/dL Normal 29.9-35.2 [facility] Comment on above: Performed By: #### C BC ####[facility] [address] [address]Dr. Hardeep Miguel MCV (RBC) [Entitic vol] 88.2 fL Normal 81.0-99.0 [facility] Comment on above: Performed By: #### C BC ####[facility] [address] [phone]. Hardeep Rivera MONO # 0.7 103/ul Normal 0.3-0.8 [facility] Comment on above: Performed By: #### C BC ####[facility] [address] [phone]. Hardeep Rivera Monocytes/100 WBC (Bld) 11.1 % Normal 1.7-12.0 [facility] Comment on above: Performed By: #### C BC ####[facility] [address] [phone]. Hardeep Rivera NEUT # 4.6 103/ul Normal 1.4-6.5 [facility] Comment on above: Performed By: #### C BC ####[facility] [address] [phone]. Hardeep Rivera Neutrophils/100 WBC (Bld) 70.5 % Normal 43.0-75.0 [facility] Comment on above: Performed By: #### C BC ####[facility] [address] [phone]. Hardeep Rivera Platelet mean volume (Bld) [Entitic vol] 9.4 fL Critically low 9.5-13.5 [facility] Comment on above: Performed By: #### C BC ####[facility] [address] [phone]. Hardeep Rivera PLT 203 103/ul Normal 150-450 [facility] Comment on above: Performed By: #### C BC ####[facility] [address] [phone]. Hardeep Rivera RBC 4.34 106/ul Normal 4.20-5.40 [facility] Comment on above: Performed By: #### C BC ####[facility] [address] [phone]. Hardeep Rivera WBC 6.5 103/ul Normal 4.0-11.0 [facility] Comment on above: Performed By: #### C BC ####[facility] [address] [phone]. Hardeep Rivera CT ABD/PELVIS WO CONon 08-04 [...] ALEXSANDER NOESHIRLEY Date: 2022-08-04 20:12 Normal [facility] Covid-19 PCR ([facility])on SARS-CoV-2 (COVID-19) RNA ULICES+probe Ql (Unsp spec) Not detected Normal NOT DETECTED [facility] Comment on above: Result Comment: When [...] for this test is supported by the Fire Sprink[employer] Inspector of Health and Human Service's declaration that [...] be used). Performed By: #### C VDTBH ####[facility] [address] [address]Dr. Hardeep Rivera ER URINE PROFILEon 2 Bilirubin Ql (U) Negative Normal NEGATIVE [facility] Comment on above: Performed By: #### E RUR #### [facility] [address] [address] [address] Hardeep Rivera Clarity (U) CLEAR Normal CLEAR [facility] Comment on above: Performed By: #### E RUR #### [facility] [address] [address] [address] Hardeep Rivera Color (U) LT. YELLOW Normal YELLOW [facility] Comment on above: Performed By: #### E RUR #### [facility] [address] [place] [address] Dr. Hardeep FRANCIS A micrscopic examina tion will be performed if indicated. Normal [facility] Comment on above: Performed By: #### E RUR #### [facility] [address] [place] [address] Dr. Hardeep Rivera Glucose Ql (U) Negative Normal NEGATIVE [facility] Comment on above: Performed By: #### E RUR #### [facility] [address] [place] [address] Dr. Hardeep Rivera Hemoglobin Ql (U) Negative Normal NEGATIVE [facility] Comment on above: Performed By: #### E RUR #### [facility] [address] [place] [address] Dr. Hardeep Rivera Ketones Ql (U) Negative Normal NEGATIVE [facility] Comment on above: Performed By: #### E RUR #### [facility] [address] [place] [address] Dr. Hardeep Rivera LEUKOCYTES Negative Normal NEGATIVE [facility] Comment on above: Performed By: #### E RUR #### [facility] [address] [place] [address] Dr. Hardeep Rivera Nitrite Ql (U) Negative Normal NEGATIVE [facility] Comment on above: Performed By: #### E RUR #### [facility] [address] [place] [address] Dr. Hardeep Rivera pH (U) 7.0 [pH] Normal 5-9 [facility] Comment on above: Performed By: #### E RUR #### [facility] [address] [place] [address] Dr. Hardeep Rivera SPEC GRAVITY <=1.005 Abnormal 1.005-<=1.0 25 [facility] Comment on above: Performed By: #### E RUR #### [facility] [address] [place] [address] Dr. Hardeep Rivera UA PROTEIN Negative Normal NEGATIVE/ TRACE [facility] Comment on above: Performed By: #### E RUR #### [facility] [address] [address] [address] Hardeep Rivera UR MICRO IND NOT INDICATED Normal [facility] Comment on above: Performed By: #### E RUR #### [facility] [address] [address] [address] Hardeep Rivera Urobilinogen Qn (U) 0.2 {Kevon'U}/dL Normal 0.2 - 1. 0 [facility] Comment on above: Performed By: #### E RUR #### [facility] [address] [address] [address] Hardeep Rivera LIPASEon 08-04-2022 Lipase [Catalytic activity/Vol] 1486.0 U/L Critically high 73.0-393.0 [facility] Comment on above: Performed By: #### C ARGENIS LIPJhony, BRITTNEY ####[facility] [address] [address]Dr. Hardeep Rivera PROF 14(COMP METB)on 022 Albumin [Mass/Vol] 3.6 g/dL Normal 3.4-5.0 [facility] Comment on above: Performed By: #### C ARGENIS LIPA, BRITTNEY ####[facility] [address] [address]DrLaura Rivera Albumin/Globulin [Mass ratio] 1.3 {ratio} Normal [facility] Comment on above: Performed By: #### C MP, LIPA, BRITTNEY ####[facility] [address] [address]Dr. Hardeep Rivera ALP [Catalytic activity/Vol] 171 U/L Critically high 46-116 [facility] Comment on above: Performed By: #### C MP LIPA, BRITTNEY ####[facility] [address] [address]Dr. Hardeep Rivera ALT [Catalytic activity/Vol] 35 U/L Normal 14-59 [facility] Comment on above: Performed By: #### C MP, LIPA, BRITTNEY ####[facility] [address] [address]Dr. Hardeep Rivera Anion gap [Moles/Vol] 11.4 mmol/L Normal [facility] Comment on above: Performed By: #### C MP, LIPA, BRITTNEY ####[facility] [address] [address]Dr. Hardeep Rivera AST [Catalytic activity/Vol] 28 U/L Normal 15-37 [facility] Comment on above: Performed By: #### C MP, LIPA, BRITTNEY ####[facility] [address] [place], [place] [address]Dr. Hardeep Rivera Bilirubin [Mass/Vol] 0.7 mg/dL Normal 0.2-1.0 [facility] Comment on above: Performed By: #### C MP, LIPA, BRITTNEY ####[facility] [address] [place], [place] [address]Dr. Hardeep Rivera Calcium [Mass/Vol] 8.4 mg/dL Critically low 8.5-10.1 [facility] Comment on above: Performed By: #### C MP, LIPA, BRITTNEY ####[facility] [address] [place], [place] [address]Dr. Hardeep Rivera Chloride [Moles/Vol] 100 mmol/L Normal 98-107 [facility] Comment on above: Performed By: #### C MP, LIPA, BRITTNEY ####[facility] [address] [place], [place] [address]Dr. Hardeep Rivera CO2 [Moles/Vol] 25.6 mmol/L Normal 21.0-32.0 [facility] Comment on above: Performed By: #### C MP, LIPA, BRITTNEY ####[facility] [address] [place], [place] [address]Dr. Hardeep Rivera Creatinine [Mass/Vol] 1.33 mg/dL Critically high 0.55-1.02 [facility] Comment on above: Performed By: #### C MP, LIPA, BRITTNEY ####[facility] [address] [place], [place] [address]Dr. Hardeep Rivera EGFR-AF JAMAICAN 47 mL/min/1.73m2 Critically low >=60 [facility] Comment on above: Performed By: #### C ABAD MORE, BRITTNEY ####[facility] [address] [address]Dr. Hardeep Rivera EGFR-NON AF JAMAICAN 39 mL/min/1.73m2 Critically low >=60 [facility] Comment on above: Performed By: #### C ABAD MORE, BRITTNEY ####[facility] [address] [address]Dr. Hardeep Rivera Globulin (S) [Mass/Vol] 2.7 g/dL Normal [facility] Comment on above: Performed By: #### C ABAD MORE, BRITTNEY ####[facility] [address] [place], [place] [address]Dr. Hardeep Rivera Glucose [Mass/Vol] 108 mg/dL Critically high 74-106 [facility] Comment on above: Performed By: #### C ABAD MORE, BRITTNEY ####[facility] [address] [place], [place] [address]Dr. Hardeep Rivera Potassium [Moles/Vol] 4.0 mmol/L Normal 3.5-5.1 [facility] Comment on above: Performed By: #### C ABAD MORE, BRITTNEY ####[facility] [address] [place], [place] [address]Dr. Hardeep Rivera Protein [Mass/Vol] 6.3 g/dL Critically low 6.4-8.2 Th [facility] Comment on above: Performed By: #### C ABAD MORE, BRITTNEY ####[facility] [address] [place], [place] [address]Dr. Hardeep Rivera Sodium [Moles/Vol] 133 mmol/L Critically low 136-145 Th [facility] Comment on above: Performed By: #### C DERRELL MOREA, BRITTNEY ####[facility] [address] [address]Dr. Hardeep Rivera Urea nitrogen [Mass/Vol] 23.0 mg/dL Critically high 7.0-18.0 [facility] Comment on above: Performed By: #### C ABAD MORE, BRITTNEY ####[facility] [address] [address]Dr. Hardeep Rivera Urea nitrogen/Creatinine [Mass ratio] 17.3 mg/mg Normal [facility] Comment on above: Performed By: #### C MP, LIPA, BRITTNEY ####[facility] [address] [address]Dr. Hardeep Rivera BOX TEST SENT OUTon 08-02-20 SENT TO REF LAB 08/02/2022 Normal [facility] Comment on above: Performed By: #### Deedee PINON #### [facility] [address] [place] [address] Dr. Hardeep Rivera CBC AUTO DIFFon 08-02-2022 BASO # 0.0 103/ul Normal 0.0-0.1 [facility] Comment on above: Performed By: #### RANDALL OLSON #### [facility] [address] [place] [address] Dr. Hardeep Rivera Basophils/100 WBC (Bld) 0.3 % Normal 0.2-2.0 [facility] Comment on above: Performed By: #### RANDALL OLSON #### [facility] [address] [place] [address] Dr. Hardeep Rivera EO # 0.1 103/ul Normal 0.0-0.7 [facility] Comment on above: Performed By: #### RANDALL OLSON #### [facility] [address] [place] [address] Dr. Hardeep Rivera Eosinophils/100 WBC (Bld) 1.4 % Normal 0.9-7.0 [facility] Comment on above: Performed By: #### RANDALL OLSON #### [facility] [address] [place] [address] Dr. Hardeep Rivera Erythrocyte distribution width (RBC) [Ratio] 12.2 % Normal 11.0-15.0 [facility] Comment on above: Performed By: #### RANDALL OLSON #### [facility] [address] [place] [address] Dr. Hardeep Rivera Hematocrit (Bld) [Volume fraction] 41.2 % Normal 36.0-48.0 [facility] Comment on above: Performed By: #### E KATHRIN, UMICRO #### [facility] [address] [place] [address] Dr. Hardeep Rivera Hemoglobin (Bld) [Mass/Vol] 13.6 g/dL Normal 12.0-16.0 [facility] Comment on above: Performed By: #### E KATHRIN, UMICRO #### [facility] [address] [place] [address] Dr. Hardeep Rivera IG # 0.02 10e3/ul Normal 0.00-0.03 [facility] Comment on above: Performed By: #### Deedee PINON, UMICRO #### [facility] [address] [place] [address] Dr. Hardeep Rivera IG % 0.3 % Normal 0.0-0.5 [facility] Comment on above: Performed By: #### Deedee PINON UMICRO #### [facility] [address] [place] [address] Dr. Hardeep Rivera LYMPH # 0.6 103/ul Critically low 1.2-3.8 [facility] Comment on above: Performed By: #### Deedee PINON, UMICRO #### [facility] [address] [place] [address] Dr. Hardeep Rivera Lymphocytes/100 WBC (Bld) 8.9 % Critically low 20.5-60.0 [facility] Comment on above: Performed By: #### Deedee PINON, UMICRO #### [facility] [address] [place] [address] Dr. Hardeep Rivera MANUAL DIFF REQ NO Normal [facility] Comment on above: Performed By: #### E RUTrish, UMICRO #### [facility] [address] [place] [address] Dr. Hardeep Rivera MCH (RBC) [Entitic mass] 29.6 pg Normal 26.7-34.0 [facility] Comment on above: Performed By: #### HARI OLSONRO #### [facility] [address] [place] [address] Dr. Hardeep Rivera MCHC (RBC) [Mass/Vol] 33.0 g/dL Normal 29.9-35.2 [facility] Comment on above: Performed By: #### HARI OLSONRO #### [facility] [address] [place] [address] Dr. Hardeep Rivera MCV (RBC) [Entitic vol] 89.8 fL Normal 81.0-99.0 [facility] Comment on above: Performed By: #### HARI OLSONRO #### [facility] [address] [place] [address] Dr. Hardeep Rivera MONO # 0.7 103/ul Normal 0.3-0.8 [facility] Comment on above: Performed By: #### HARI OLSONRO #### [facility] [address] [place] [address] Dr. Hardeep Rivera Monocytes/100 WBC (Bld) 11.6 % Normal 1.7-12.0 [facility] Comment on above: Performed By: #### HARI OLSONRO #### [facility] [address] [place] [address] Dr. Hardeep Rivera NEUT # 5.0 103/ul Normal 1.4-6.5 [facility] Comment on above: Performed By: #### HARI OLSONRO #### [facility] [address] [place] [address] Dr. Hardeep Rivera Neutrophils/100 WBC (Bld) 77.5 % Critically high 43.0-75.0 [facility] Comment on above: Performed By: #### HARI OLSONRO #### [facility] [address] [place] [address] Dr. Hardeep Rivera Platelet mean volume (Bld) [Entitic vol] 9.4 fL Critically low 9.5-13.5 [facility] Comment on above: Performed By: #### HARI OLSONRO #### [facility] [address] [place], [place] [address] Dr. Hardeep Rivera PLT 200 103/ul Normal 150-450 [facility] Comment on above: Performed By: #### RANDALL OLSON #### [facility] [address] [place], [place] [address] Dr. Hardeep Rivera RBC 4.59 106/ul Normal 4.20-5.40 [facility] Comment on above: Performed By: #### RANDALL OLSON #### [facility] [address] [place], [place] [address] Dr. Hardeep Rivera WBC 6.4 103/ul Normal 4.0-11.0 [facility] Comment on above: Performed By: #### RANDALL OLSON #### [facility] [address] [place], [place] [address] Dr[facility] ODETTEN Telephone (JULIAN CONNELLY MAI) -- SYLVIA HERRERA ([id number]) 1945 F Date Time Provider Department 08/02/22 LOIDA MATHIAS [facility] During your visit today, we recorded the following information about you: Linden Faustina 08/02/2022 1:42 PM Signed Patient had labs drawn 08/02/22, uploaded to scanned docs. Loida Mathias APRN.SPORTS WRITER 08/07/2022 10:27 AM Signed Received outside labs drawn 08/02 -- FK 4.7 Cr 1.4 BUN 21 K 3.9 FBS 119 WBC 6400 Hgb 13.6 Hct 41 Plts 200 My chart message sent to patient. Advised no changes. Asked that she keep us posted re: if she will be transferring her care. Loida Mathias APRN.SPORTS WRITER August 07, 2022 10:27 AM Allergies As [...] mg by mouth three times daily. - zybnmi-khqeacob-qfxwqyb (CREON) 24,000-76,000 -120,000 unit cpDR Take 3 [...] Status:Closed by LINDEN WEEMS on 08/02/22 Normal [facility] PROF CHEM 8 (BAS METB)on Anion gap [Moles/Vol] 12.2 mmol/L Normal [facility] Comment on above: Performed By: #### RANDALL OLSON #### [facility] [address] [place] [address] Dr. Hardeep Rivera Calcium [Mass/Vol] 8.6 mg/dL Normal 8.5-10.1 [facility] Comment on above: Performed By: #### RANDALL OLSON #### [facility] [address] [place] [address] Dr. Hardeep Rivera Chloride [Moles/Vol] 98 mmol/L Normal 98-107 [facility] Comment on above: Performed By: #### RANDALL OLSON #### [facility] [address] [place] [address] Dr. Hardeep Rivera CO2 [Moles/Vol] 27.7 mmol/L Normal 21.0-32.0 [facility] Comment on above: Performed By: #### RANDALL OLSON #### [facility] [address] [place] [place] [address] [address] Hardeep Rivera Creatinine [Mass/Vol] 1.42 mg/dL Critically high 0.55-1.02 [facility] Comment on above: Performed By: #### Deedee PINON UMICRO #### [facility] [address] [place] [place] [address] [address] Hardeep Rivera EGFR-AF JAMAICAN 43 mL/min/1.73m2 Critically low >=60 [facility] Comment on above: Performed By: #### E KATHRIN, UMICRO #### [facility] [address] [place] [address] [address] Hardeep Rivera EGFR-NON AF JAMAICAN 36 mL/min/1.73m2 Critically low >=60 [facility] Comment on above: Performed By: #### Deedee PINON UMICRO #### [facility] [address] [place] [address] [address] Hardeep Rivera Glucose [Mass/Vol] 119 mg/dL Critically high 74-106 T [facility] Comment on above: Performed By: #### Deedee PINON UMICRO #### [facility] [address] [place] [address] [address] Hardeep Rivera Potassium [Moles/Vol] 3.9 mmol/L Normal 3.5-5.1 [facility] Comment on above: Performed By: #### Deedee PINON UMICRO #### [facility] [address] [place] [address] [address] Hardeep Rivera Sodium [Moles/Vol] 134 mmol/L Critically low 136-145 Th [facility] Comment on above: Performed By: #### Deedee PINON, UMICRO #### [facility] [address] [place] [address] [address] Hardeep Rivera Urea nitrogen [Mass/Vol] 21.0 mg/dL Critically high 7.0-18.0 [facility] Comment on above: Performed By: #### Deedee PINON, UMICRO #### [facility] [address] [place] [address] [address] Hardeep Rivera Urea nitrogen/Creatinine [Mass ratio] 14.8 mg/mg Normal [facility] Comment on above: Performed By: #### E RANDALL PINON #### [facility] [address] [place] [address] [address] Hardeep Rivera Tacrolimus Bld-marleen 2021 Tacrolimus (Bld) [Mass/Vol] 4.7 ng/mL Low 5.0-20.0 [facility] Comment on above: Order Comment: [...] Test performed by chemiluminescent immunoassay using [employer]. Performed By: #### 1 1253-2 ####[facility] LABCLIA [id number] [address] [facility] 07-05-2022 ODETTEN Telephone (JULIAN [facility]) -- SYLVIA HERRERA ([id number]) 1945 F Date Time Provider Department 07/05/22 [facility] During your visit today, we recorded the following information about you: Sho Crowley APRN.SPORTS WRITER 07/05/2022 10:48 AM Signed 07/03/22 labs: FK: [...] another team. Sho Dmitriy MONTANO CNP Pager: [phone] July 05, 2022 10:42 AM Post Heart [...] transplant. No Dr Caldera: Rfl: TACROLIMUS/FK-506 BL [[id number]] Order #: [id number] FUTURE Prescriptions as of 07/05/2022 - tacrolimus [...] mg by mouth three times daily. - cewhwz-kjqnnpar-wgqrujv (CREON) 24,000-76,000 -120,000 unit cpDR Take 3 [...] 09/02/2019 A (more content not included)... Normal [facility] Rojas BOX TEST SENT OUTon 07-03-20 22 SENT TO REF LAB 07/03/2022 Normal [facility] Comment on above: Performed By: #### E RANDALL PINON #### [facility] [address] [place] [address] Dr. Hardeep Rivera CBC AUTO DIFFon 07-03-2022 BASO # 0.0 103/ul Normal 0.0-0.1 [facility] Comment on above: Performed By: #### C BC #### [facility] [address] [place] [address] Dr. Hardeep Rivera Basophils/100 WBC (Bld) 0.3 % Normal 0.2-2.0 [facility] Comment on above: Performed By: #### C BC #### [facility] [address] [place] [address] Dr. Hardeep Rivera EO # 0.1 103/ul Normal 0.0-0.7 [facility] Comment on above: Performed By: #### C BC #### [facility] [address] [place] [address] Dr. Hardeep Rivera Eosinophils/100 WBC (Bld) 0.9 % Normal 0.9-7.0 [facility] Comment on above: Performed By: #### C BC #### [facility] [address] [place] [address] Dr. Hardeep Rivera Erythrocyte distribution width (RBC) [Ratio] 12.2 % Normal 11.0-15.0 [facility] Comment on above: Performed By: #### C BC #### [facility] [address] [place] [address] Dr. Hardeep Rivera Hematocrit (Bld) [Volume fraction] 42.3 % Normal 36.0-48.0 [facility] Comment on above: Performed By: #### C BC #### [facility] [address] [place] [address] Dr. Hardeep Rivera Hemoglobin (Bld) [Mass/Vol] 14.0 g/dL Normal 12.0-16.0 [facility] Comment on above: Performed By: #### C BC #### [facility] [address] [place] [address] Dr. Hardeep Rivera IG # 0.04 10e3/ul Critically high 0.00-0.03 [facility] Comment on above: Performed By: #### C BC #### [facility] [address] [place] [address] Dr. Hardeep Rivera IG % 0.5 % Normal 0.0-0.5 [facility] Comment on above: Performed By: #### C BC #### [facility] [address] [place] [address] Dr. Hardeep Rivera LYMPH # 0.8 103/ul Critically low 1.2-3.8 [facility] Comment on above: Performed By: #### C BC #### [facility] [address] [place] [address] Dr. Hardeep Rivera Lymphocytes/100 WBC (Bld) 10.9 % Critically low 20.5-60.0 [facility] Comment on above: Performed By: #### C BC #### [facility] [address] [place] [address] Dr. Hardeep Rivera MANUAL DIFF REQ NO Normal [facility] Comment on above: Performed By: #### C BC #### [facility] [address] [place] [address] Dr. Hardeep Rivera MCH (RBC) [Entitic mass] 29.7 pg Normal 26.7-34.0 [facility] Comment on above: Performed By: #### C BC #### [facility] [address] [place] [address] Dr. Hardeep Rivera MCHC (RBC) [Mass/Vol] 33.1 g/dL Normal 29.9-35.2 [facility] Comment on above: Performed By: #### C BC #### [facility] [address] [place] [address] Dr. Hardeep Rivera MCV (RBC) [Entitic vol] 89.8 fL Normal 81.0-99.0 [facility] Comment on above: Performed By: #### C BC #### [facility] [address] [place] [address] Dr. Hardeep Rivera MONO # 0.9 103/ul Critically high 0.3-0.8 [facility] Comment on above: Performed By: #### C BC #### [facility] [address] [place] [address] Dr. Hardeep Rivera Monocytes/100 WBC (Bld) 11.1 % Normal 1.7-12.0 [facility] Comment on above: Performed By: #### C BC #### [facility] [address] [place] [address] Dr. Hardeep Rivera NEUT # 5.8 103/ul Normal 1.4-6.5 [facility] Comment on above: Performed By: #### C BC #### [facility] [address] [place] [address] Dr. Hardeep Rivera Neutrophils/100 WBC (Bld) 76.3 % Critically high 43.0-75.0 [facility] Comment on above: Performed By: #### C BC #### [facility] [address] [place] [address] [address] Hardeep Rivera Platelet mean volume (Bld) [Entitic vol] 9.5 fL Normal 9.5-13.5 [facility] Comment on above: Performed By: #### C BC #### [facility] [address] [place] [place] [address] [address] Hardeep Rivera PLT 191 103/ul Normal 150-450 [facility] Comment on above: Performed By: #### C BC #### [facility] [address] [place] [place] [address] [address] Hardeep Rivera RBC 4.71 106/ul Normal 4.20-5.40 [facility] Comment on above: Performed By: #### C BC #### [facility] [address] [place] [address] [address] Hardeep Rivera WBC 7.6 103/ul Normal 4.0-11.0 [facility] Comment on above: Performed By: #### C BC #### [facility] [address] [place] [address] Dr. Hardeep Clark 07-03-2022 CNPN Telephone (JULIAN [facility]) -- SYLVIA HERRERA ([id number]) 1945 F Date Time Provider Department 07/03/22 SOY MCCANN CARD [facility] During your visit today, we recorded the following information about you: Linden Weems 07/03/2022 1:02 PM Signed Patient had labs drawn 07/03/22, uploaded to [facility] docs. Allergies As of Date: 07/03/2022 Noted [...] mg by mouth three times daily. 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 Hardeep Rivera Calcium [Mass/Vol] 9.0 mg/dL Normal 8.5-10.1 [facility] Comment on above: Performed By: #### RANDALL OLSON #### [facility] [address] [place] [address] Dr. Hardeep Rivera Chloride [Moles/Vol] 98 mmol/L Normal 98-107 [facility] Comment on above: Performed By: #### RANDALL OLSON #### [facility] [address] [place] [address] [address] Hardeep Rivera CO2 [Moles/Vol] 28.1 mmol/L Normal 21.0-32.0 [facility] Comment on above: Performed By: #### RANDALL OLSON #### [facility] [address] [place] [address] Dr. Hardeep Rivera Creatinine [Mass/Vol] 1.64 mg/dL Critically high 0.55-1.02 [facility] Comment on above: Performed By: #### RANDALL OLSON #### [facility] [address] [place] [address] [address] Hardeep Rivera EGFR-AF JAMAICAN 37 mL/min/1.73m2 Critically low >=60 [facility] Comment on above: Performed By: #### AKSHAT OLSONICRO #### [facility] [address] [place] [address] [address] Hardeep Rivera EGFR-NON AF JAMAICAN 30 mL/min/1.73m2 Critically low >=60 [facility] Comment on above: Performed By: #### E KATHRIN, UMICRO #### [facility] [address] [place] [address] Dr. Hardeep Rivera Glucose [Mass/Vol] 114 mg/dL Critically high 74-106 T [facility] Comment on above: Performed By: #### Deedee PINON UMICRO #### [facility] [address] [place] [address] Dr. Hardeep Rivera Potassium [Moles/Vol] 4.0 mmol/L Normal 3.5-5.1 [facility] Comment on above: Performed By: #### Deedee PINON UMICRO #### [facility] [address] [place] [address] Dr. Hardeep Rivera Sodium [Moles/Vol] 135 mmol/L Critically low 136-145 [facility] Comment on above: Performed By: #### Deedee PINON, UMICRO #### [facility] [address] [place] [address] Dr. Hardeep Rivera Urea nitrogen [Mass/Vol] 24.0 mg/dL Critically high 7.0-18.0 [facility] Comment on above: Performed By: #### Deedee PINON UMICRO #### [facility] [address] [place] [address] Dr. Hardeep Rivera Urea nitrogen/Creatinine [Mass ratio] 14.6 mg/mg Normal [facility] Comment on above: Performed By: #### Deedee PINON, UMICRO #### [facility] [address] [place] [address] Dr. Hardeep Rivera Tacrolimus Bld-ncon 2021 Tacrolimus (Bld) [Mass/Vol] 12.4 ng/mL Normal 5.0-20.0 [facility] Comment on above: Order Comment: [...] situation. Test performed by chemiluminescent immunoassay using [employer]. Performed By: #### 1 1253-2 ####[facility] LABCLIA [id number] [place] [address] [place] MG MAMM SCREEN 3D TRISHA CADon 05-28-2022 MG MAMM SCREEN 3D TRISHA CAD Patient: SYLVIA HERRERA Exam Date: 05/28/2022 : 1945 Gender:F Ordering : DR TAO ROONEY . Admission #: [id number] Family : Order #: [id number] CLICK HERE TO VIEW EXAM RADIOLOGY REPORT [...] No Treatments None Family Cancers None LOCATION: [facility] BREAST COMPOSITION: Heterogeneously dense,which may obscure small [...] Ibrahim MD on 05/28/2022 at 10:20 Normal [facility] 05-08-2022 CNPN Telephone (CARD MARICEL DEXTER) -- SYLVIA HERRERA ([id number]) 1945 F Date Time Provider Department 05/08/22 LOIDA MATHIAS [facility] During your visit today, we recorded the following information about you: Linden Faustina 05/08/2022 11:50 AM Signed Patient had labs drawn 05/07/22, uploaded to scanned docs. Linden Faustina Administrative French [employer] Binder Loida Mathias APRN.ODETTE 05/08/2022 3:21 PM Signed [...] transplant. No Dr Caldera: Rfl: TACROLIMUS/FK-506 BL [[id number]] Order #: [id number] FUTURE Prescriptions as of 05/08/2022 - tacrolimus [...] mg by mouth three times daily. - rhsexf-qdbgqsbb-clfjtzi (CREON) 24,000-76,000 -120,000 unit cpDR Take 3 [...] 05/19/2014 [facility] (more content not included)... Normal [facility] Rojas BOX TEST SENT OUTon 05-07-20 22 SENT TO REF LAB 05/07/2022 Normal [facility] Comment on above: Performed By: #### RANDALL OLSON #### [facility] [address] [place] [address] Dr. Hardeep Rivera CBC AUTO DIFFon 05-07-2022 BASO # 0.0 103/ul Normal 0.0-0.1 [facility] Comment on above: Performed By: #### RANDALL OLSON #### [facility] [address] [place] [address] Dr. Hardeep Rivera Basophils/100 WBC (Bld) 0.4 % Normal 0.2-2.0 [facility] Comment on above: Performed By: #### RANDALL OLSON #### [facility] [address] [place] [address] Dr. Hardeep Rivera EO # 0.1 103/ul Normal 0.0-0.7 [facility] Comment on above: Performed By: #### RANDALL OLSON #### [facility] [address] [place] [address] Dr. Hardeep Rivera Eosinophils/100 WBC (Bld) 1.0 % Normal 0.9-7.0 [facility] Comment on above: Performed By: #### RANDALL OLSON #### [facility] [address] [place] [address] Dr. Hardeep Rivera Erythrocyte distribution width (RBC) [Ratio] 12.6 % Normal 11.0-15.0 [facility] Comment on above: Performed By: #### RANDALL OLSON #### [facility] [address] [place] [address] Dr. Hardeep Rivera Hematocrit (Bld) [Volume fraction] 44.0 % Normal 36.0-48.0 [facility] Comment on above: Performed By: #### E RUR, UMICRO #### [facility] [address] [place] [address] [address] Hardeep Rivera Hemoglobin (Bld) [Mass/Vol] 14.0 g/dL Normal 12.0-16.0 [facility] Comment on above: Performed By: #### E RUR, UMICRO #### [facility] [address] [place] [address] Dr. Hardeep Rivera IG # 0.02 10e3/ul Normal 0.00-0.03 [facility] Comment on above: Performed By: #### E RUR, UMICRO #### [facility] [address] [place] [address] Dr. Hardeep Rivera IG % 0.3 % Normal 0.0-0.5 [facility] Comment on above: Performed By: #### E KATHRIN, UMICRO #### [facility] [address] [place] [address] Dr. Hardeep Rivera LYMPH # 0.6 103/ul Critically low 1.2-3.8 [facility] Comment on above: Performed By: #### E RUTrish, UMICRO #### [facility] [address] [place] [address] Dr. Hardeep Rivera Lymphocytes/100 WBC (Bld) 8.2 % Critically low 20.5-60.0 [facility] Comment on above: Performed By: #### E KATHRIN, UMICRO #### [facility] [address] [place] [address] Dr. Hardeep Rivera MANUAL DIFF REQ NO Normal [facility] Comment on above: Performed By: #### E RUR, UMICRO #### [facility] [address] [place] [address] Dr. Hardeep Rivera MCH (RBC) [Entitic mass] 29.4 pg Normal 26.7-34.0 [facility] Comment on above: Performed By: #### E RUR, UMICRO #### [facility] [address] [place] [address] Dr. Hardeep Rivera MCHC (RBC) [Mass/Vol] 31.8 g/dL Normal 29.9-35.2 [facility] Comment on above: Performed By: #### RANDALL OLSON #### [facility] [address] [place] [address] Dr. Hardeep Rivera MCV (RBC) [Entitic vol] 92.2 fL Normal 81.0-99.0 [facility] Comment on above: Performed By: #### HARI OLSONRO #### [facility] [address] [place] [address] Dr. Hardeep Rivera MONO # 0.8 103/ul Normal 0.3-0.8 [facility] Comment on above: Performed By: #### HARI OLSONRO #### [facility] [address] [place] [address] Dr. Hardeep Rivera Monocytes/100 WBC (Bld) 9.6 % Normal 1.7-12.0 [facility] Comment on above: Performed By: #### HARI OLSONRO #### [facility] [address] [place] [address] Dr. Hardeep Rivera NEUT # 6.3 103/ul Normal 1.4-6.5 [facility] Comment on above: Performed By: #### RANDALL OLSON #### [facility] [address] [place] [address] Dr. Hardeep Rivera Neutrophils/100 WBC (Bld) 80.5 % Critically high 43.0-75.0 [facility] Comment on above: Performed By: #### HARI OLSONRO #### [facility] [address] [place] [address] Dr. Hardeep Rivera Platelet mean volume (Bld) [Entitic vol] 10.1 fL Normal 9.5-13.5 [facility] Comment on above: Performed By: #### HARI OLSONRO #### [facility] [address] [place] [address] Dr. Hardeep Rivera PLT 188 103/ul Normal 150-450 [facility] Comment on above: Performed By: #### HARI OLSONRO #### [facility] [address] [place] [address] Dr. Hardeep Rivera RBC 4.77 106/ul Normal 4.20-5.40 [facility] Comment on above: Performed By: #### Deedee PINON UMICRO #### [facility] [address] [place] [address] Dr. Hardeep Rivera WBC 7.8 103/ul Normal 4.0-11.0 [facility] Comment on above: Performed By: #### Deedee PINON UMICRO #### [facility] [address] [place] [address] Dr. Hardeep Rivera PROF CHEM 8 (BAS METB)on Anion gap [Moles/Vol] 11.9 mmol/L Normal [facility] Comment on above: Performed By: #### Deedee PINON UMICRO #### [facility] [address] [place] [address] Dr. Hardeep Rivera Calcium [Mass/Vol] 8.7 mg/dL Normal 8.5-10.1 [facility] Comment on above: Performed By: #### Deedee PINON UMICRO #### [facility] [address] [place] [address] Dr. Hardeep Rivera Chloride [Moles/Vol] 99 mmol/L Normal 98-107 [facility] Comment on above: Performed By: #### Deedee PINON UMICRO #### [facility] [address] [place] [address] Dr. Hardeep Rivera CO2 [Moles/Vol] 27.1 mmol/L Normal 21.0-32.0 [facility] Comment on above: Performed By: #### Deedee PINON UMICRO #### [facility] [address] [place] [address] Dr. Hardeep Rivera Creatinine [Mass/Vol] 1.62 mg/dL Critically high 0.55-1.02 [facility] Comment on above: Performed By: #### Deedee PINON UMICRO #### [facility] [address] [place] [address] Dr. Hardeep Rivera EGFR-AF JAMAICAN 37 mL/min/1.73m2 Critically low >=60 [facility] Comment on above: Performed By: #### RANDALL OLSON #### [facility] [address] [place] [address] Dr. Hardeep Rivera EGFR-NON AF JAMAICAN 31 mL/min/1.73m2 Critically low >=60 [facility] Comment on above: Performed By: #### HARI OLSONRO #### [facility] [address] [place] [address] Dr. Hardeep Rivera Glucose [Mass/Vol] 73 mg/dL Critically low 74-106 Th [facility] Comment on above: Performed By: #### RANDALL OLSON #### [facility] [address] [place] [address] Dr. Hardeep Rivera Potassium [Moles/Vol] 4.0 mmol/L Normal 3.5-5.1 [facility] Comment on above: Performed By: #### RANDALL OLSON #### [facility] [address] [place] [address] Dr. Hardeep Rivera Sodium [Moles/Vol] 134 mmol/L Critically low 136-145 Th [facility] Comment on above: Performed By: #### RANDALL OLSON #### [facility] [address] [place] [address] Dr. Hardeep Rivera Urea nitrogen [Mass/Vol] 33.0 mg/dL Critically high 7.0-18.0 [facility] Comment on above: Performed By: #### HARI OLSONRO #### [facility] [address] [place] [address] Dr. Hardeep Rivera Urea nitrogen/Creatinine [Mass ratio] 20.4 mg/mg Normal [facility] Comment on above: Performed By: #### HARI OLSONRO #### [facility] [address] [place] [address] Dr. Hardeep Rivera TACROLIMUS/FK-506 BLon 05-07 Tacrolimus (Bld) [Mass/Vol] 3.4 ng/mL Low 5.0-20.0 [facility] Comment on above: Order Comment: [...] situation. Test performed by chemiluminescent immunoassay using [employer]. Performed By: #### F K506 ####[facility] LABCLIA [id number] [address] OF [facility] 05-03-2022 CNPN Telephone ([facility] -- SYLVIA HERRERA ([id number]) 1945 F Date Time Provider Department 05/03/22 SHO CROWLEY [facility] During your visit today, we recorded the following information about you: Sho Crowley APRN.SPORTS WRITER 05/03/2022 2:58 PM Signed received phone call from [facility]iology group requesting patient's Tacrolimus levels from 04/24. Faxed results to [phone]. Allergies As of Date: 05/03/2022 Noted Allergy [...] mg by mouth three times daily. - kxncgf-roxbsfsf-paywyin (CREON) 24,000-76,000 -120,000 unit cpDR Take 3 [...] Status:Closed by SHO CROWLEY on 05/03/22 Normal [facility] Rojas BOX TEST SENT OUTon 04-24-20 SENT TO REF LAB 04/24/2022 Normal [facility] Comment on above: Performed By: #### RANDALL OLSON #### [facility] [address] [place] [address] Dr. [facility] NIK Telephone ([facility]) -- SYLVIA HERRERA ([id number]) 1945 F Date Time Provider Department 04/24/22 LOIDA MATHIAS [facility] During your visit today, we recorded the following information about you: Linden Weems 04/24/2022 1:31 PM Signed Patient left message that she had labs drawn today. Linden Weems Administrative French Cord Binder Post Heart Transplant J3-4 Loida Mathias APRN.CNP 04/26/2022 11:25 AM Signed Received FK level 4.5, drawn 04/24 My chart message sent to patient. Advised to remain on current dose and keep our office updated re: her plans for post transplant follow up. Loida Mathias APRN.SPORTS WRITER April 26, 2022 11:24 AM Component Latest Ref Rng AND Units 04/24/2022 Tacrolimus/FK506 5.0 - 20.0 ng/mL 4.5 (L) Allergies As of Date: 04/24/2022 Noted Allergy Reaction PERCOCET (OXYCODONE-ACETAMINOPHEN)0 05/18/2014 8 - GI Upset PHENERGAN (PROMETHAZINE HCL) 10/11/2005 14 - Other: See Comments Comments: hallucinations Date Reviewed: 09/02/2019 Reviewed by: Sandrita Gurerero - Fully Assessed Reason for Visit: Heart [...] mg by mouth three times daily. - nespgn-lfvmfruq-gvcmejw (CREON) 24,000-76,000 -120,000 unit cpDR Take 3 [...] 09/02/2019 Diabetes mellitus, type II ([facility]) [E11.9] 04/29/2014 DREW (acute kidney injury) (HCC) [...] Status:Closed by LINDEN WEEMS on 04/24/22 Normal [facility] TACROLIMUS/FK-506 BLon 04-24 Tacrolimus (Bld) [Mass/Vol] 4.5 ng/mL Low 5.0-20.0 [facility] Comment on above: Order Comment: [...] Test performed by chemiluminescent immunoassay using [employer]. Performed By: #### F K506 ####[facility] LABCLIA [id number] [place] [address] [place] FK506 (TACROLIMUS) WHOLE BLO ODon 04-11-2022 Tacrolimus (FK506), Blood 7.3 ng/mL Normal 2.0-20.0 [facility] Comment on above: Result Comment: Trou gh (immediately following transplant) 15.0 . Trough (steady state, 2 weeks or more after transplant): 3.0 - 8.0 . Performed by LC-MS/MS technology. Performed By: #### E RANDALL PINON #### [facility] [address] [place] [address] Dr. Hardeep Rivera BOX TEST SENT OUTon 04-09-20 22 SENT TO REF LAB 04/09/2022 Normal [facility] Comment on above: Performed By: #### Deedee PINON UMICRO #### [facility] [address] [place] [address] Dr. Hardeep Rivera CBC AUTO DIFFon 04-09-2022 BASO # 0.0 103/ul Normal 0.0-0.1 [facility] Comment on above: Performed By: #### Deedee PINON UMICRO #### [facility] [address] [place] [address] Dr. Hardeep Rivera Basophils/100 WBC (Bld) 0.1 % Critically low 0.2-2.0 [facility] Comment on above: Performed By: #### Deedee PINON UMICRO #### [facility] [address] [place] [address] Dr. Hardeep Rivera EO # 0.1 103/ul Normal 0.0-0.7 [facility] Comment on above: Performed By: #### AKSHAT OLSONICRO #### [facility] [address] [place] [address] Dr. Hardeep Rivera Eosinophils/100 WBC (Bld) 1.2 % Normal 0.9-7.0 [facility] Comment on above: Performed By: #### AKSHAT OLSONICRO #### [facility] [address] [place] [address] Dr. Hardeep Rivera Erythrocyte distribution width (RBC) [Ratio] 12.6 % Normal 11.0-15.0 [facility] Comment on above: Performed By: #### Deedee PINON UMICRO #### [facility] [address] [place] [address] Dr. Hardeep Rivera Hematocrit (Bld) [Volume fraction] 44.1 % Normal 36.0-48.0 [facility] Comment on above: Performed By: #### Deedee PINON UMICRO #### [facility] [address] [place] [address] Dr. Hardeep Rivera Hemoglobin (Bld) [Mass/Vol] 14.1 g/dL Normal 12.0-16.0 [facility] Comment on above: Performed By: #### HARI OLSONRO #### [facility] [address] [place] [address] Dr. Hardeep Rivera IG # 0.02 10e3/ul Normal 0.00-0.03 [facility] Comment on above: Performed By: #### HARI OLSONRO #### [facility] [address] [place] [address] Dr. Hardeep Rivera IG % 0.3 % Normal 0.0-0.5 [facility] Comment on above: Performed By: #### HARI OLSONRO #### [facility] [address] [place] [address] Dr. Hardeep Rivera LYMPH # 0.7 103/ul Critically low 1.2-3.8 [facility] Comment on above: Performed By: #### AKSHAT OLSONICRO #### [facility] [address] [place] [address] Dr. Hardeep Rivera Lymphocytes/100 WBC (Bld) 10.8 % Critically low 20.5-60.0 [facility] Comment on above: Performed By: #### AKSHAT OLSONICRO #### [facility] [address] [place] [address] Dr. Hardeep Rivera MANUAL DIFF REQ NO Normal [facility] Comment on above: Performed By: #### AKSHAT OLSONICRO #### [facility] [address] [place] [address] Dr. Hardeep Rivera MCH (RBC) [Entitic mass] 29.3 pg Normal 26.7-34.0 [facility] Comment on above: Performed By: #### Deedee PINON UMICRO #### [facility] [address] [place] [address] Dr. Hardeep Rivera MCHC (RBC) [Mass/Vol] 32.0 g/dL Normal 29.9-35.2 [facility] Comment on above: Performed By: #### Deedee PINON UMICRO #### [facility] [address] [place] [address] Dr. Hardeep Rivera MCV (RBC) [Entitic vol] 91.7 fL Normal 81.0-99.0 [facility] Comment on above: Performed By: #### Deedee PINON UMICRO #### [facility] [address] [place] [address] Dr. Hardeep Rivera MONO # 0.7 103/ul Normal 0.3-0.8 [facility] Comment on above: Performed By: #### Deedee PINON UMICRO #### [facility] [address] [place] [address] Dr. Hardeep Rivera Monocytes/100 WBC (Bld) 10.8 % Normal 1.7-12.0 [facility] Comment on above: Performed By: #### Deedee PINON UMICRO #### [facility] [address] [place] [address] Dr. Hardeep Rivera NEUT # 5.2 103/ul Normal 1.4-6.5 [facility] Comment on above: Performed By: #### Deedee PINON UMICRO #### [facility] [address] [place] [address] Dr. Hardeep Rivera Neutrophils/100 WBC (Bld) 76.8 % Critically high 43.0-75.0 [facility] Comment on above: Performed By: #### Deedee PINON UMICRO #### [facility] [address] [place] [address] Dr. Hardeep Rivera Platelet mean volume (Bld) [Entitic vol] 9.8 fL Normal 9.5-13.5 [facility] Comment on above: Performed By: #### Deedee PINON UMICRO #### [facility] [address] [place] [address] Dr. Hardeep Rivera PLT 200 103/ul Normal 150-450 [facility] Comment on above: Performed By: #### Deedee PINON UMICRO #### [facility] [address] [place] [address] Dr. Hardeep Rivera RBC 4.81 106/ul Normal 4.20-5.40 [facility] Comment on above: Performed By: #### Deedee PINON UMICRO #### [facility] [address] [place] [address] Dr. Hardeep Rivera WBC 6.7 103/ul Normal 4.0-11.0 [facility] Comment on above: Performed By: #### Deedee PNION UMICRO #### [facility] [address] [place] [address] Dr. Hardeep Rivera PROF CHEM 8 (BAS METB)on Anion gap [Moles/Vol] 9.1 mmol/L Normal [facility] Comment on above: Performed By: #### Deedee PINON UMICRO #### [facility] [address] [place] [address] Dr. Hardeep Rivera Calcium [Mass/Vol] 8.3 mg/dL Critically low 8.5-10.1 [facility] Comment on above: Performed By: #### Deedee PINON UMICRO #### [facility] [address] [place] [address] Dr. Hardeep Rivera Chloride [Moles/Vol] 100 mmol/L Normal 98-107 [facility] Comment on above: Performed By: #### Deedee PINON UMICRO #### [facility] [address] [place] [address] Dr. Hardeep Rivera CO2 [Moles/Vol] 28.1 mmol/L Normal 21.0-32.0 [facility] Comment on above: Performed By: #### Deedee PINON, UMICRO #### [facility] [address] [place] [address] Dr. Hardeep Rivera Creatinine [Mass/Vol] 1.54 mg/dL Critically high 0.55-1.02 [facility] Comment on above: Performed By: #### Deedee PINON, UMICRO #### [facility] [address] [place] [address] Dr. Hardeep Rivera EGFR-AF JAMAICAN 40 mL/min/1.73m2 Critically low >=60 [facility] Comment on above: Performed By: #### HARI OLSONRO #### [facility] [address] [address] [address] Hardeep Rivera EGFR-NON AF JAMAICAN 33 mL/min/1.73m2 Critically low >=60 [facility] Comment on above: Performed By: #### Deedee PINON UMICRO #### [facility] [address] [place] [address] Dr. Hardeep Rivera Glucose [Mass/Vol] 122 mg/dL Critically high 74-106 T [facility] Comment on above: Performed By: #### Deedee PINON UMICRO #### [facility] [address] [place] [address] Dr. Hardeep Rivera Potassium [Moles/Vol] 4.2 mmol/L Normal 3.5-5.1 [facility] Comment on above: Performed By: #### HARI OLSONRO #### [facility] [address] [place] [address] Dr. Hardeep Rivera Sodium [Moles/Vol] 133 mmol/L Critically low 136-145 Th [facility] Comment on above: Performed By: #### HARI OLSONRO #### [facility] [address] [place] [address] Dr. Hardeep Rivera Urea nitrogen [Mass/Vol] 28.0 mg/dL Critically high 7.0-18.0 [facility] Comment on above: Performed By: #### HARI OLSONRO #### [facility] [address] [place] [address] Dr. Hardeep Rivera Urea nitrogen/Creatinine [Mass ratio] 18.2 mg/mg Normal [facility] Comment on above: Performed By: #### HARI OLSONRO #### [facility] [address] [place] [address] Dr. Hardeep Rivera TACROLIMUS/FK-506 BLon 04-09 Tacrolimus (Bld) [Mass/Vol] 9.9 ng/mL Normal 5.0-20.0 [facility] Comment on above: Order Comment: [...] Test performed by chemiluminescent immunoassay using [employer]. Performed By: #### F K506 ####[facility] LABCLIA [id number] [address] Eduardo 10-10-2021 NIK Telephone ([facility]) -- SYLVIA HERRERA ([id number]) 1945 F Date Time Provider Department 10/10/21 LOIDA MATHIAS [facility] During your visit today, we recorded the following information about you: Linden Weems 10/10/2021 11:57 AM Signed Patient had labs drawn today Linden Weems Administrative French Cord Binder Linden Weems 10/11/2021 10:57 AM Signed Labs uploaded to scanned docs. Linden Weems Administrative French Cord Binder Loida Mathias APRN.CNP 10/12/2021 12:28 PM Signed [...] transplant. No Dr Ellerp: Rfl: TACROLIMUS/FK-506 BL [[id number]] Order #: [id number] FUTURE Prescriptions as of 10/12/2021 - tacrolimus [...] mg by mouth three times daily. - oxlxnn-cghwswtg-qmmpogm (CREON) 24,000-76,000 -120,000 unit cpDR Take 3 [...] [J18.9] 11/29 (more content not included)... Normal [facility] Tacrolimus / [id number] 021 Tacrolimus / FK506 10.1 ng/mL Normal 5.0-20.0 [facility] Comment on above: Result Comment: [...] situation. Test performed by chemiluminescent immunoassay using [employer]. Performed By: #### F K506 ####[facility] [id number] [place], [place] [id number] [facility] 09-13-2021 CNPN Telephone ([facility]) -- SYLVIA HERRERA ([id number]) 1945 F Date Time Provider Department 09/13/21 ARELIS NEWSOME [facility] During your visit today, we recorded the following information about you: Linden Weems 09/13/2021 2:52 PM Signed S/w pt, due to transportation and financial constraints she is unable to come to [place] for appointments. Patient is working with her lining caser to establish care with a local technical communication teacher (had previously been followed by one in [place]).Dr Rice has agreed and plan going forward will be to do a phone visit with pt on 10/03 and she will follow up in the interim with her local Scaffold Setter. Sending pt mailers and lab order, she will get those done as soon as she can. Linden Weems Administrative French Cord Binder Allergies As of Date: 09/13/2021 Noted Allergy [...] mg by mouth three times daily. - yfwnoo-tsvxutiv-dfltjmp (CREON) 24,000-76,000 -120,000 unit cpDR Take 3 [...] Encounter Status:Closed by LINDEN WEEMS on 09/13/21 [facility] OBSOLETEon 09-12-2021 OBSOLETE Refill ([facility] ) -- SYLVIA HERRERA ([id number]) 1945 F Date Time Provider Department 09/12/21 SANDRITA GUERRERO [facility] During your visit today, we [...] mg by mouth three times daily. - jiagqu-hxntvdee-ltgsjxa (CREON) 24,000-76,000 -120,000 unit cpDR Take 3 [...] Status:Closed by SANDRITA GUERRERO on 09/12/21 Normal [facility] Vital Signs Date Time Vital Sign Value Performing Clinician Dami charles 04-08-2023 06:45-0400 Diastolic blood pressure 76 mm[Hg] [employer] [facility] 04-08-2023 06:45-0400 Heart rate 59 /min [employer] [facility] 04-08-2023 06:45-0400 Hourly Rounding [employer] [facility] 04-08-2023 06:45-0400 Mean blood pressure 106 mm[Hg] [employer] [facility] 04-08-2023 06:45-0400 Respiratory rate 18 /min [employer] [facility] 04-08-2023 06:45-0400 SaO2% (BldA) [Mass fraction] 96 % Richard Roby [facility] 04-08-2023 06:45-0400 Systolic blood pressure 167 mm[Hg] Richard Roby [facility] 04-08-2023 05:30-0400 Diastolic blood pressure 88 mm[Hg] Richard Roby [facility] 04-08-2023 05:30-0400 Heart rate 52 /min Richard Roby [facility] 04-08-2023 05:30-0400 Hourly Rounding Richard Roby [facility] 04-08-2023 05:30-0400 Mean blood pressure 114 mm[Hg] Richard Roby [facility] 04-08-2023 05:30-0400 Respiratory rate 18 /min Richard Roby [facility] 04-08-2023 05:30-0400 SaO2% (BldA) [Mass fraction] 95 % Richard Orby [facility] 04-08-2023 05:30-0400 Systolic blood pressure 167 mm[Hg] Richard Roby [facility] 04-08-2023 04:39-0400 Diastolic blood pressure 90 mm[Hg] Richard Roby [facility] 04-08-2023 04:39-0400 Heart rate 56 /min Richard Roby [facility] 04-08-2023 04:39-0400 Hourly Rounding Richard Roby [facility] 04-08-2023 04:39-0400 Mean blood pressure 112 mm[Hg] Richard Roby [facility] 04-08-2023 04:39-0400 Respiratory rate 17 /min Richard Roby [facility] 04-08-2023 04:39-0400 SaO2% (BldA) [Mass fraction] 94 % Richard Roby [facility] 04-08-2023 04:39-0400 Systolic blood pressure 155 mm[Hg] Richard Roby [facility] 04-07-2023 21:48-0400 Respiratory rate 18 /min [facility] Roby [facility] 04-07-2023 21:19-0400 Body temperature 98.06 [degF] Richard Roby [facility] 04-07-2023 21:19-0400 Heart rate 65 /min Richard Roby [facility] 04-07-2023 21:19-0400 Respiratory rate 19 /min [facility] Roby [facility] Encounters Encounter Date Encounter Type Care Provider Facility Start: 10-09-2024 ambulatory González Lomax lity:[facility] Start: 09-14-2024 End: 09-14-2024 ambulatory [facility] Start: 07-01-2024 End: 07-01-2024 ambulatory [facility] Start: 06-18-2024 End: 06-18-2024 ambulatory NON STAFF [facility] Work Phone: Start: 06-18-2024 End[facility] Start: 02-03-2024 End: 02-03-2024 ambulatory [facility] Start: 11-12-2023 End: 11-12-2023 ambulatory [facility] Start: 04-07-2023 End: 04-08-2023 Emergency department patient visit Richard Ca [facility] Start: 03-05-2023 End: 03-05-2023 ambulatory SCOT [...] ROGERS Facility:[facility]1 Start: 09-08-2022 Refill Sandrita Guerrero APRN.SPORTS WRITER Work Phone: Cardiology Comment on above: Refill Request Start: 08-04-2022 End: 08-04-2022 ambulatory NANCY REYES . Facility:[facility] Start: 08-02-2022 Telephone encounter Loida Mathias APRN.SPORTS WRITER Work Phone: Cardiology Comment on above: Heart Transplant Fol low Up (Labs/) Start: 08-02-2022 End: 08-03-[address] TAO ROONEY . Facility:[facility] Start: 07-27-[address] TAO ROONEY . Facili ty:[facility] Start: 07-16-2022 End: 07-16-2022 Patient encounter procedure Eddie VERAS [facility] Start: 07-05-2022 Telephone encounter Sho Crowley APRN.SPORTS WRITER Work Phone: Cardiology Comment on above: Heart Transplant Fol low Up; Lab Meeting Start: 07-03-2022 Telephone encounter Soy Mccann RN [facility] rdi[facility] Comment on above: Heart Transplant Fol low Up (labs) Start: 07-03-2022 End: 07-04-[address] TAO ROONEY . Facility:[facility] Start: 05-28-2022 End: 05-29-[address] TAO ROONEY . Facility:[facility] Start: 05-08-2022 Telephone encounter Loida Mathias APRN.SPORTS WRITER Work Phone: Cardiology Comment on above: Heart Transplant Fol low Up (labs) Start: 05-07-2022 End: 05-08-[address] TAO ROONEY . Facility:[facility] Start: 04-24-2022 Telephone encounter Loida Mathias APRN.SPORTS WRITER Work Phone: Cardiology Comment on above: Heart Transplant Fol low Up Start: 04-24-2022 End: 04-25-[address] TAO ROONEY . Facility:[facility] Start: 04-20-[address] TAO ROONEY . Facili ty:[facility] Start: 04-11-2022 ambulatory Loida fontaine APRN.CNP Work Phone: [facility] Start: 04-11-2022 Follow-up encounter Loida Mathias APRN.SPORTS WRITER Work Phone: Cardiology Comment on above: Heart Transplant Fol low Up (Labs) Start: 04-09-2022 End: 04-10-[address] TAO ROONEY . Facility:[facility] Start: 04-06-2022 Orders Only Loida fontaine APRN.SPORTS WRITER Work Phone: Cardiology Comment on above: Heart replaced by tr ansplant (HCC) (Primary Dx) Start: 04-04-2022 Refill Loida fontaine APRN.SPORTS WRITER Work Phone: Cardiology Comment on above: Rx Refills Start: 10-03-2021 End: 10-03-2021 ambulatory NICOLETTE RICE [facility] Procedures Date Procedure Procedure Detail Performing Clinician Start: 08-10-2013 H/O: heart recipient Heart transplan arianna Loida Mathias APRN.SPORTS WRITER Work Phone: H/O: heart recipient Heart transplanted ( HCC) Loida Mathias CITY COLLECTOR.SPORTS WRITER Work Phone: H/O: heart recipient Heart repla nitish by transplant ([facility]) Loida Mathias CITY COLLECTOR.SPORTS WRITER Work Phone: H/O: heart recipient Heart transplanted ( HCC) Loida Mathias CITY COLLECTOR.SPORTS WRITER Work Phone: H/O: heart recipient Heart transplanted ( HCC) Loida Mathias CITY COLLECTOR.SPORTS WRITER Work Phone: H/O: heart recipient Heart transplanted ( HCC) Sho Crowley CITY COLLECTOR.SPORTS WRITER Work Phone: H/O: heart recipient Hx of heart transplant( Confirmed ) Eddie VERAS Plan of Treatment Date Care Activity Detail Author Start: 08-02-2022 Influenza vaccination INFLUENZA (#1) [facility] Start: 07-19-2022 End: 09-18-2022 Tacrolimus [Mass/volume] in Blood TACROLIMUS/FK-506 BL Lab Routine Heart transplanted ([facility]) Expected: 07/19/2022 (Approximate), Expires: 09/18/2022 [facility] Work Phone: Comment on above: Expected: 07/19/2022 (Approximate), Expires: 09/18/2022 Start: 05-21-2022 End: 07-21-2022 TACROLIMUS/FK-506 BL TACROLIMUS/FK-506 BL Lab Routine Heart transplanted ([facility]) Expected: 05/21/2022, Expires: 07/21/2022 [facility] Work Phone: Comment on above: Expected: 05/21/2022 , Expires: 07/21/2022 Start: 04-23-2022 End: 06-23-2022 TACROLIMUS/FK-506 BL TACROLIMUS/FK-506 BL Lab Routine Heart transplanted ([facility]) Expected: 04/23/2022, Expires: 06/23/2022 [facility] Work Phone: Comment on above: Expected: 04/23/2022 , Expires: 06/23/2022 Start: 04-09-2022 End: 06-09-2022 CBC W Auto Differential panel - Blood CBC + DIFF Lab Routine Heart replaced by transplant ([facility]) Expected: 04/09/2022, Expires: 06/09/2022 [facility] Work Phone: Comment on above: Expected: 04/09/2022 , Expires: 06/09/2022 Start: 04-09-2022 End: 06-09-2022 Comprehensive metabolic 2000 panel - Serum or Plasma COMP METABOLIC PANEL Lab Routine Heart replaced by transplant ([facility]) Expected: 04/09/2022, Expires: 06/09/2022 [facility] Work Phone: Comment on above: Expected: 04/09/2022 , Expires: 06/09/2022 Start: 04-09-2022 End: 04-06-2023 HEART/LUNG REC POST TX DSA HEART/LUNG REC POST TX DSA ALLOGEN Routine Heart replaced by transplant ([facility]) Expected: 04/09/2022, Expires: 04/06/2023 [facility] Work Phone: Comment on above: Expected: 04/09/2022 , Expires: 04/06/2023 Start: 04-09-2022 End: 06-09-2022 LIPID PANEL BASIC LIPID PANEL BASIC Lab Routine Heart replaced by transplant ([facility]) Expected: 04/09/2022, Expires: 06/09/2022 [facility] Work Phone: Comment on above: Expected: 04/09/2022 , Expires: 06/09/2022 Start: 04-09-2022 End: 06-09-2022 Magnesium [Mass/volume] in Serum or Plasma MAGNESIUM BLD Lab Routine Heart replaced by transplant ([facility]) Expected: 04/09/2022, Expires: 06/09/2022 [facility] Work Phone: Comment on above: Expected: 04/09/2022 , Expires: 06/09/2022 Start: 04-09-2022 End: 06-09-2022 TACROLIMUS/FK-506 BL TACROLIMUS/FK-506 BL Lab Routine Heart replaced by transplant ([facility]) Expected: 04/09/2022, Expires: 06/09/2022 [facility] Work Phone: Comment on above: Expected: 04/09/2022 , Expires: 06/09/2022 Start: 04-09-2022 End: 06-09-2022 URINALYSIS, DIPSTICK ONLY URINALYSIS, DIPSTICK ONLY Lab Routine Heart replaced by transplant (HCC) Expected: 04/09/2022, Expires: 06/09/2022 [facility] Work Phone: Comment on above: Expected: 04/09/2022 , Expires: 06/09/2022 Start: 12-02-2021 ADVANCE DIRECTIVE DISCUSSION ADVANCE DIRECTIVE DISCUSSION [facility] Start: 09-26-2021 COVID-19 VACCINE (3 - Pfizer risk 4-dose series) COVID-19 VACCINE (3 - Pfizer risk 4-dose series) [facility] Start: 09-26-2021 COVID-19 VACCINE (3 - Pfizer risk series) COVID-19 VACCINE (3 - Pfizer risk series) [facility] Start: 03-04-2020 Hepatitis B surface antibody level LDL CHOLESTEROL [facility] Start: 06-14-2015 Hemoglobin A1c/Hemoglobin.total in Blood HBA1C [facility] Start: 11-01-2013 PNEUMOCOCCAL: 65+ (3 - PCV) PNEUMOCOCCAL: 65+ (3 - PCV) [facility] Start: 2009 [facility]ULT [facility] Start: 1994 SHINGRIX VACCINE (1 of 2) SHINGRIX VACCINE (1 of 2) [facility] Start: 1963 SHINGRIX VACCINE (1 of 2) SHINGRIX VACCINE (1 of 2) [facility] Start: 1963 Urine microalbumin profile DTAP,TDAP,TD (1 - Tdap) [facility] Start: 1962 ANNUAL PCP TEAM TELEHEALTH CASE MANAGER ESTRELLA DISEASE VISIT ANNUAL PCP TEAM CHRONIC DISEASE VISIT [facility] Start: 1962 BP CONTROLLED (<130/80) BP CONTROLLE D (<130/80) [facility] Start: 1954 3 comp foot exam completed DIABETIC FOOT EXAM [facility] Start: 1954 Hepatitis B screening URINE ALBUMIN:CREATININE RATIO [facility] Start: 1954 Hepatitis C antibody , confirmatory test DILATED RETINAL EXAM [facility] Start: 1950 PNEUMOCOCCAL: 65+ (1 - PCV) PNEUMOCOCCAL: 65+ (1 - PCV) [facility] Immunizations Immunization Date Immunization Notes Care Provider Fa cility 06-05-2022 SARS-CoV-2 mRNA (ozazxdpqqhp-jgbv-ukils se) vaccine Morgan SALAM [facility] 08-29-2021 SARS-CoV-2 (COVID-19 ) mRNA BNT-162b2 vax Morgan SALAM [facility] 08-02-2021 SARS-CoV-2 (COVID-19 ) mRNA BNT-162b2 vax Morgan SALAM [facility] 07-05-2021 influenza virus vaccine, unspecified formulation Morgan SALAM [facility] 09-29-2020 influenza, unspecifi ed formulation Morgan SALAM [facility] 07-24-2020 influenza virus vaccine, unspecified formulation Morgan SALAM [facility] 09-02-2017 influenza virus vaccine, unspecified formulation Morgan SALAM [facility] 08-07-2017 pneumococcal conjuga te vaccine, 13 valent Morgan SALAM [facility] 08-14-2016 influenza virus vaccine, unspecified formulation Morgan SALAM [facility] 09-29-2015 pneumococcal conjuga te vaccine, 13 valent Morgan SALAM [facility] 08-04-2015 influenza virus vaccine, unspecified formulation Morgan SALAM [facility] 09-15-2014 influenza virus vaccine, whole virus Loida Iammarino CITY COLLECTOR.SPORTS WRITER Work Phone: [facility] 09-15-2014 influenza, whole Morgan SALAM [facility] 11-01-2012 pneumococcal polysaccharide vaccine, 23 valent Loida Iammarino CITY COLLECTOR.SPORTS WRITER Work Phone: [facility] 12-28-2009 novel [id number], all formulations Loida Iammarino CITY COLLECTOR.SPORTS WRITER Work Phone: [facility] Work Phone: 08-19-2009 influenza virus vaccine, unspecified formulation Loida Iammarino CITY COLLECTOR.SPORTS WRITER Work Phone: [facility] 09-01-2006 influenza virus vaccine, unspecified formulation Loida Iammarino CITY COLLECTOR.SPORTS WRITER Work Phone: [facility] Work Phone: 09-01-2006 pneumococcal polysaccharide vaccine, 23 valent Loida Iammarino CITY COLLECTOR.SPORTS WRITER Work Phone: [facility] Work Phone: NEGATED: Highlighted row has not occurred!07-12-2022 influenza virus vaccine, unspecified formulation Morgan SALAM [facility] Payers Date Payer Category Payer Self-pay 2022 Medicare UHC MEDICARE UHC DUAL COMPLETE HMO SNP [id number] 2022-Present [phone] [address] [place] [address] Medicare [id number] 2022 Medicare UHC MEDICARE UHC DUAL COMPLETE HMO SNP [id number] 2022-Present [phone] [address] [place] [address] Medicare [id number] 2020 Unknown [id number] 1959 Medicaid [id number] 1959 Medicare [id number] 1959 Self-pay [id number] 1959 Unknown [id number] 1944 Unknown [id number] [id number]3 1944 Unknown [id number] 2.16.840.1.271420.3.579.2.593 1944 Unknown [id number] 2.16.840.1.158803.3.579.2.593 1944 Unknown [id number] 2.16.840.1.294092.3.579.2.593 1944 Unknown [id number] 2.16.840.1.326435.3.579.2.593 1944 Unknown [id number] 2.16.840.1.010095.3.579.2.593 1944 Unknown [id number] 2.16.840.1.230720.3.579.2.593 1944 Unknown [id number] 2.16.840.1.714125.3.579.2.593 1944 Unknown [id number] 2.16.840.1.130684.3.579.2.593 1944 Unknown [id number] 2.16.840.1.296505.3.579.2.593 1944 Unknown [id number] 2.16.840.1.682913.3.579.2.593 1944 Unknown [id number] 2.16.840.1.360552.3.579.2.593 1944 Unknown [id number] 2.16.840.1.004948.3.579.2.593 1944 Unknown [id number] 2.16.840.1.095677.3.579.2.593 1944 Unknown [id number] 2.16.840.1.602484.3.579.2.593 1944 Unknown [id number] 2.16.840.1.360205.3.579.2.593 1944 Unknown [id number] 2.16.840.1.279913.3.579.2.593 1944 Unknown [id number] 2.16.840.1.696877.3.579.2.593 1944 Unknown [id number] 2.16.840.1.746034.3.579.2.727 Unknown [id number] 2.16.840.1.557918.3.579.2.593 Social History Date Type Detail Facility Start: 05-13-2019 [facility] Work Phone: History of tobacco use Cigarette Smoker [facility] Work Phone: Start: 09-07-2019 Alcohol intake 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) [facility] Start: 1945 Sex Assigned At Not on file [facility] Start: 07-12-2022 Never smoked t obacco (finding) [facility] Never [facility] Female [facility] History of tobacco use Current smoker [facility] Start: 05-13-2019 Cigarettes smoked current (pack per day) - Reported 0.3 [facility] Start: 05-13-2019 Tobacco use and exposure Smokeless tobacco non-user [facility] Start: 1945 Sex Assigned At Female F [facility] Functional Status Date Assessment Result Facility 04-07-2023 Functional Status N/A [facility] Clinical Notes 11-14-2017 to 09-14-2024 Note [...] 2007. She is followed by the [facility] cardiology service. She has had no [...] on 11/19/16. Similar (more content not included)... [facility] 07-01-2024 Note [facility] Subjective Sylvia Herrera is a 78 y.o. year old female patient being seen for follow up [facility] for syncope. Says she's been having [...] 2007. She is followed by the [facility] cardiology service. She has had no [...] There is no (more content not included)... [facility] 02-03-2024 Note [facility] Subjective Sylvia Herrera is a 78 y.o. year old female patient being seen for follow up [facility]. She was seen as inpatient consult [...] Alcohol use: Not Currently Drug use: Never [facility] Visit of 10/30/2021: Sylvia is seen [...] 2007. She is followed by the [facility] cardiology service. She has had no [...] the prior echocardiographi (more content not included)... [facility] 11-12-2023 Note [facility] [...] 2007. She is followed by the [facility] cardiology service. She has had no [...] Stress Testing (1 (more content not included)... [facility] 10-28-2023 Note [facility] 04-08-2023 Hospital Discharge instructions Patient Education 04/08/2023 [...] ?Adrenal gland problems. ?Metabolic conditions, such as Wrangell's disease or syndrome of inappropriate antidiuresis (SIAD). [...] improvement. Follow these instructions at home: Take crtk-uhk-zcztwph and prescription medicines only as told by [...] provider. Document Revised: 05/29/2022 Document Reviewed: 05/29/2022 [employer] Patient Education 2022 AVST. 04/08/2023 08:56:02 Nonspecific Chest Pain, Adult Nonspecific [...] Follow these instructions at home: Medicines Take tjia-ogd-bhrdxfx and prescription medicines only as told by [...] provider. Document Revised: 02/01/2022 Document Reviewed: 02/01/2022 [employer]ule [employer] Patient Education 2022 AVST. Follow Up Care 04/07/2023 21:19:10 With:SCOT ROGERS Address: [address] [place] [address]- [phone] Business (1) When:Within 3 Day(s) [facility] 04-07-2023 Evaluation + Plan note [...] Troponin 9 Hr. XR Chest Single View [facility]09-01-2022 Miscellaneous Notes* Telephone Encounter - Linden Weems - 08/02/2022 1:41 PM EDT Patient had labs drawn 08/02/22, uploaded to scanned docs. [facility] Miscellaneous Notes* Telephone Encounter - Sho [...] another team. Sho Crowley APRN, CNP Pager: [phone] July 05, 2022 10:42 AM Post Heart Transplant Nurse Practitioner documented in [facility]-2022 Miscellaneous Notes* Telephone Encounter - Linden Weems - 07/03/2022 12:59 PM EDT Patient had labs drawn 07/03/22, uploaded to scanned docs. documented in [facility]06-07-2022 Miscellaneous Notes* Addendum Note - Loida [...] labs drawn 05/07/22, uploaded to scanned docs. Linedn Weems Administrative French Cord Binder documented in this encounterSouth[facility]05-24-2022 Miscellaneous Notes* Telephone Encounter - Linden Weems - 04/24/2022 1:31 PM EDT Patient left message that she had labs drawn today. Linden Weems Administrative French Cord Binder Post Heart Transplant J3-4 documented in this encounterSouth[facility]05-11-2022 NoteHNO ID: [id number] Author: Loida Mathias APRN.CNP Service: ? Author [...] reports she can no longer travel to [place]. She does not have a ride, she has no family or friends to lean on. She has made an appt with a local Scaffold Setter. She will ask him if there are any transplant doctors or centers near her and potentially need to transfer her care. She will keep us updated. Loida Mathias APRN.CNP April 12, 2022 2:25 [facility]05-11-2022 History of Present illness Narrative* [...] reports she can no longer travel to [place]. Shedoes not have a ride, she has no family or friends to lean on. She has made an appt with a local Scaffold Setter. She will ask him if there are any transplant doctors or centers near her and potentiallyneed to transfer her care. She will keep us updated. Loida Mathias APRN.CNP April 12, 2022 2:25 PM documented in this encounterSouth[facility] Center11-08-2021 NoteHNO ID: [id number] Author: Loida Mathias APRN.CNP Service: ? Author [...] staff (Dr Perez) on 04/02/22. Loida Mathias APRN.SPORTS WRITER October 09, 2021 4:10 [facility]11-02-2021 NoteHNO ID: [id number] Author: Nicolette Rice MD Service: ? Author Type: Physician Type: Progress Notes Filed: 10/03/2021 4:12 PM Note Text: Heart, Vascular AND Thoracic [place] Department of Cardiovascular Medicine TELEPHONE VISIT PROGRESS [...] in ~6 months. Will see a local technical communication teacher at the end of the month. Data Reviewed: No new labs Assessment: She is doing well clinically and her BP is controlled. ? Plan: 1. She was instructed to continue the current medical program. 2. RTC per post-transplant protocol. Total Time Spent: 21-30 minutes Nicolette Rice, [facility]12-14-2017 History of Past illness Narrative* Problem Noted [...] of this encounter (statuses as of 04/05/2022) [facility] of Past illness Narrative* Problem [...] of this encounter (statuses as of 04/06/2022) [facility] of Past illness Narrative* Problem [...] of this encounter (statuses as of 04/12/2022) [facility] of Past illness Narrative* Problem [...] of this encounter (statuses as of 04/24/2022) [facility] of Past illness Narrative* Problem [...] of this encounter (statuses as of 05/08/2022) [facility] of Past illness Narrative* Problem [...] of this encounter (statuses as of 07/03/2022) [facility] of Past illness Narrative* Problem [...] of this encounter (statuses as of 07/05/2022) [facility] of Past illness Narrative* Problem [...] of this encounter (statuses as of 08/02/2022) [facility] of Past illness Narrative* Problem [...] of this encounter (statuses as of 09/11/2022) [facility] + Plan note Future Appointments Appointment Date:08/01/2022 01:50:00 PM Scheduled Provider: Location:[facility] Appointment Type:Surgery FT Diagnostic Tests Pending * CMV Antibody IgM 07/16/22 Future Scheduled Tests Laboratory* Fecal WBC Lactoferrin 07/12/22 * Giardia lamblia, Direct Detection EIA 07/12/22 * O & P Exam, Routine 07/12/22 * Clostridium difficile by PCR 07/12/22 * Enteric Panel by PCR 07/12/22 [facility] note* Diagnosis Heart transplanted (HCC) Heart replaced [facility] Diagnosis Heart replaced by transplant (HCC)- Primary Heart replaced by transplant [facility] Diagnosis Heart replaced by transplant (HCC)- Primary Heart replaced by transplant Heart transplanted (HCC) Heart replaced by transplant [facility]* Diagnosis Heart transplanted (HCC) Heart replaced by transplant [facility]* Diagnosis Heart transplanted (HCC) Heart replaced by transplant documented in this encounter [facility] noteNo assessment information availableAultman [facility] Work Phone: Hospital course Narrative No data available for this section [facility] Discharge instructions No data available for this section [facility] No data available for this section [facility] Advance Directives No Advanced Directives Records FoundDocuments on File Type Date Recorded Patient Sales Apprentice Expl anation Advance Directive(s) 11/14/2017 5:44 AM Advance Directive(s) 01/02/2012 12:00 AM Advance Directive(s) 01/17/2007 12:00 AM Documents on File Type Date Recorded Patient Sales Apprentice Expl anation Advance Directive(s) 01/02/2012 Advance Directive(s) [...] or prosecute any alcohol or drug abuse patient.[facility] CenterIn the event this information is protected by the Federal Confidentiality of Alcohol and Drug Abuse Patient Records regulations: The Federal rules restrict any use of the information to criminally investigate or prosecute any alcohol or drug abuse patient.[facility] CenterIn the event this information is protected by the Federal Confidentiality of Alcohol and Drug Abuse Patient Records regulations: The Federal rules restrict any use of the information to criminally investigate or prosecute any alcohol or drug abuse patient.[facility] CenterIn the event this information is protected by the Federal Confidentiality of Alcohol and Drug Abuse Patient Records regulations: The Federal rules restrict any use of the information to criminally investigate or prosecute any alcohol or drug abuse patient.[facility] CenterIn the event this information is protected by the Federal Confidentiality of Alcohol and Drug Abuse Patient Records regulations: The Federal rules restrict any use of the information to criminally investigate or prosecute any alcohol or drug abuse patient.[facility] CenterIn the event this information is protected by the Federal Confidentiality of Alcohol and Drug Abuse Patient Records regulations: The Federal rules restrict any use of the information to criminally investigate or prosecute any alcohol or drug abuse patient.[facility] CenterIn the event this information is protected by the Federal Confidentiality of Alcohol and Drug Abuse Patient Records regulations: The Federal rules restrict any use of the information to criminally investigate or prosecute any alcohol or drug abuse patient.[facility] CenterIn the event this information is protected by the [facility] Confidentiality of Alcohol and Drug Abuse Patient Records regulations: The Federal rules restrict any use of the information to criminally investigate or prosecute any alcohol or drug abuse patient.[facility] CenterIn the event this information is protected by the Federal Confidentiality of Alcohol and Drug Abuse Patient Records regulations: The Federal rules restrict any use of the information to criminally investigate or prosecute any alcohol or drug abuse patient.[facility] Reason for Visit (unrecogniz ed section and content) Reason Comments Rx Refills Reason Comments Heart Transplant Follow Up Labs Reason Comments Heart Transplant Follow Up Reason Comments Heart Transplant Follow Up labs Reason Comments Heart Transplant Follow Up Lab Meeting Reason Comments Refill Request Care Teams (unrecognized sec tion and content) Metallurgical Or Materials Technician Relationship Specialty Start Date End Date Tao Rooney MD [address] [place] [address] PCP - General Family Practice 05/13/19 Metallurgical Or Materials Technician Relationship Specialty Start Date End Date Tao Rooney MD [address] [place] [address] PCP - General Family Practice 05/13/19 Metallurgical Or Materials Technician Relationship Specialty Start Date End Date Tao Rooney MD [address] [place] [address] PCP - General Family Practice 05/13/19 Metallurgical Or Materials Technician Relationship Specialty Start Date End Date Tao Rooney MD [address] [place] [address] PCP - General Family Practice 05/13/19 Metallurgical Or Materials Technician Relationship Specialty Start Date End Date Tao Rooney MD [address] [place] [address] PCP - General Family Practice 05/13/19 Metallurgical Or Materials Technician Relationship Specialty Start Date End Date Tao Rooney MD [address] [place] [address] PCP - General Family Medicine 05/13/19 Team Status: Inactive Member Role Status Dates NON STAFF Attending Provider Active Start: 2023 End: June 18, 2024 INFORMATION SOURCE (unrecogn ized section and content) DATE CREATED AUTHOR 09/01/2022 [facility] DATE CREATED AUTHOR AUTHOR'S ORGANIZ ATION 03/09/2023 [facility] DATE CREATED AUTHOR AUTHOR'S ORGANIZ ATION 07/12/2024 [facility] DATE CREATED AUTHOR AUTHOR'S ORGANIZ ATION 09/15/2024 [facility] DATE CREATED AUTHOR AUTHOR'S ORGANIZ ATION 09/24/2024 [facility] Goals (unrecognized section and content) Goals may [...] BE BASED ON THE PRIMARY CLINICAL RECORDS. [facility]. provides no warranty or guarantee of the accuracy or completeness of information in this document.
== END 2024-09-25 08:30 | disposition home or self-care (01) ==
LOC: US 08:29
PROVIDERS: PCP Family Medicine; Visit Provider Nurse Practitioner Family
DX: R11.0 Nausea (principal); Z90.49 Acquired absence of other specified parts of digestive tract
CPT/HCPCS: 76700

== ENCOUNTER 2024-12-14 09:20 | Outpatient (OUT) | payer MEDICARE, SELFPAY ==
[2024-12-14 10:57] LABS: Anion Gap 16.9; BUN Creatinine Ratio 16.6; Calcium 8.2 mg/dL (8.5-10.1); Carbon Dioxide 19.3 mmol/L (21.0-32.0); Chloride 111 mmol/L (98-107); Estimated GFR (African America 22 (>=60 mL/min/1.73m^2); Estimated GFR (Non-African Ame 18 (>=60 mL/min/1.73m^2); Glucose 123 mg/dL (74-106); Potassium 4.2 mmol/L (3.5-5.1); Sodium 143 mmol/L (136-145)
== END 2024-12-14 09:21 | disposition home or self-care (01) ==
PROVIDERS: PCP Family Medicine; Visit Provider Internal Medicine Interventional Cardiology
DX: I50.41 Acute combined systolic (congestive) and diastolic (congestive) heart failure (principal)
CPT/HCPCS: 36415; 80048

== ENCOUNTER 2024-12-16 11:20 | Outpatient (OUT) | payer MEDICARE, SELFPAY ==
[2024-12-16 11:59] LABS: Basophils Percent Auto 0.3 % (0.2-2.0); Eosinophils Absolute Auto 0.1 10^3/uL (0.0-0.7); Eosinophils Percent Auto 1.1 % (0.9-7.0); Hematocrit 35.5 % (36.0-48.0); Immature Granulocytes Abs Auto 0.02 10^3/uL (0.00-0.03); Immature Granulocytes Pct Auto 0.3 % (0.0-0.5); Lymphocytes Percent Auto 14.5 % (20.5-60.0); Mean Corpuscular Hemoglobin 29.6 pg (26.7-34.0); Mean Corpuscular Volume 95.7 fL (81.0-99.0); Mean Platelet Volume 10.4 fL (9.5-13.5); Monocytes Absolute Auto 0.9 10^3/uL (0.3-0.8); Monocytes Percent Auto 11.9 % (1.7-12.0); Neutrophils Absolute Auto 5.2 10^3/uL (1.4-6.5); Neutrophils Percent Auto 71.9 % (43.0-75.0); Platelet Count 178 10^3/uL (150-450); Red Blood Count 3.71 10^6/uL (4.20-5.40); White Blood Count 7.2 10^3/uL (4.0-11.0)
== END 2024-12-16 11:21 | disposition home or self-care (01) ==
LOC: LAB 11:23
PROVIDERS: PCP Family Medicine; Visit Provider Nurse Practitioner Family
DX: D50.9 Iron deficiency anemia, unspecified (principal)
CPT/HCPCS: 36415; 83540; 85025

== ENCOUNTER 2025-01-01 11:06 | Outpatient (OUT) | payer MEDICARE, SELFPAY ==
--- OUTSIDE RECORDS SUMMARY | 2025-01-01 11:13 | XMS_ITS | CCD ---
Author Organization [facility] Care Team Providers Care Brush Hand Name Role Phone Tao Davis MD Primary Care Provider [phone] SCOT ROGERS Primary Care Physician [phone] Tao Davis MD Primary Care Provider [phone] NICOLETTE RICE Attending UnavailARELIS Rivera Referring Unavailable TAO DAVIS Primary Care Unavailable Tao Davis MD Primary Care Provider [phone] TORIBIO Sanchez, DR BURGER Primary Care Unavailable MISC, DR LOONEY Consulting Unavailable MISC, DR LOONEY Attending Unavailable MISC, DR LOONEY Admitting Unavailable TORIBIO ., DR BURGER Primary Care Unavailable TORIBIO ., DR BURGER Admitting Unavailable TORIBIO ., DR BURGER Consulting Unavailable TORIBIO ., DR BURGER Attending Unavailable TORIBIO ., DR BURGER Primary Care Unavailable MOUKAHERMILO, DR LANCASTER Admitting Unavailable MOUKAELGINEL, DR LANCASTER Attending Unavailable SCOT ROGERS Consulting Unavailable TORIBIO Sanchez, DR BURGER Primary Care Unavailable SCOT ROGERS Admitting Unavailable SCOT ROGERS Attending Unavailable TORIBIO ., DR BURGER Primary Care Unavailable MISC, DR LOONEY Consulting Unavailable MISC, DR LOONEY Attending Unavailable MISC, DR LOONEY Admitting Unavailable NANCY BARFIELD Attending Unavailable GOPAL CUI Consulting UnavailHimanshu Sanchez, DR BURGER Primary Care Unavailable AMY Sanchez, NANCY Admitting Unavailable JAZLYN DUBOSE Consulting Unavailable AMY ., NANCY Consulting Unavailable CAMERON NELSON Consulting Unavaila karen Sanchez, DR BURGER Primary Care Unavailable MOUKAHERMILO, DR LANCASTER Admitting Unavailable MOUKARBEL, DR LANCASTER Attending Unavailable SCOT ROGERS Attending Unavailable TORIBIO ., DR BURGER Primary Care Unavailable KRISTIN, DR HAI Chambers Consulting Unavailable SUE, SCOT Admitting Unavailable SUE, SCOT Consulting Unavailable HOY ., DR BURGER Primary Care Unavailable HOY ., DR BURGER Admitting Unavailable HOY ., DR BURGER Consulting Unavailable HOY ., DR BURGER Attending Unavailable [place], DR JAZLYN Marcelino Consulting Unavailable SUE, SCOT [...] ., DR BURGER Primary Care Unavailable SUE, SCOT Consulting Unavailable SUE, SCOT Admitting Unavailable NON STAFF Attending Provider Unavailable NON STAFF Attending Unavailable NON STAFF Admitting Unavailable MOUKARBEL, ANISHA Attending Unavailable MOUKARBEL, ANISHA Attending Unavailable MOUKARBEL, ANISHA Attending Unavailable MOUKARBEL, ANISHA Attending Unavailable González Shanks Attending Unavailable Tao Davis MD Primary Care Provider [phone] Allergies Allergy Classification Reported Allergen(s) Allergy Type Date of Onset Reaction(s) Facility (11 sources) Acetaminophen / oxyCODONE; Translations: [OXYCODONE-ACETAM INOPHEN] Drug Allergy 05-18-20 14 GI Upset [facility] Work Phone: (12 sources) Promethazine; Translations: [PROMETHAZINE HCL] Drug Allergy 10-11-20 05 Other: See Comments [facility] (3 sources) Levamisole; Translations: [Phenergan] Drug Allergy 04-07-[address] [facility] Repository (1 source) Morphine Drug Allergy [facility] Repository (3 sources) Promethazine; Translations: [promethazine] Drug Allergy 08-12-20 22 Loss of consciousness (finding) [facility] (1 source) No Known Medication Allergies; Translations: [No Known Medication Allergies] Propensity to adverse reactions (disorder) [facility] Repository Medications Current Medications Medication Drug Class(es) Dates Sig (Normalized) Sig (Original) acetaminophen 325 mg oral tablet (10 sources) Start: 04-30-2014 take 325-650 mg by mouth every four hours as needed acetaminophen 325 mg tablet Take 1-2 tablets by mouth every 4 hours as needed. 0 04/30/2014 Active Comment on above: Take 1-2 tablets by mouth every 4 hours as needed. alendronic acid 70 mg oral tablet (13 sources) Bisphosphonate Start: 01-07-2014 take 1 tablet by mouth every week in the morning alendronate (FOSAMAX) 70 mg tablet Take 1 tablet by mouth once each week. in the morning with a full glass of water, on an empty stomach, and do not take anything else by mouth or lie down for the next 30 minutes. 0 01/07/2014 Active Comment on above: Take 1 tablet by bettina th once each week. in the morning with a full glass of water, on an empty stomach, and do not take anything else by mouth or lie down for the next 30 minutes. amitriptyline hydrochloride 10 mg oral tablet (10 sources) Tricyclic Antidepressant Start: 09-02-2019 take 1 tablet by mouth once daily at bedtime amitriptyline (ELAVIL) 10 mg tablet Take 1 tablet by mouth daily at bedtime. 09/02/2019 Active Comment on above: Take 1 tablet by bettina th daily at bedtime. Creon (13 sources) Start: 07-10-2022 Creon Oral, TID, Refills(s) 0 Start Date: 07/10/22 Status: Ordered lipase-protease- amylase (CREON) 24,000-76,000 -120,000 unit cpDR Take 3 capsules by mouth three times daily with meals. TAKE 3 CAPSULES THREE TIMES A DAY WITH MEALS AND 1 CAPSULE IF HAVING A SNACK Active Comment on above: Take 3 capsules by m out three times daily with meals. TAKE 3 CAPSULES THREE TIMES A DAY WITH MEALS AND 1 CAPSULE IF HAVING A SNACK Aspirin (13 sources) Platelet Aggregation Inhibitor, Nonsteroidal Anti-inflammatory Drug Start: 07-10-2022 aspirin Refills(s) 0 Start Date: 07/10/22 Status: Ordered Start: 12-28-2009 aspirin(ECOTRI N LOW STRENGTH 81 MG TAB) Take one(1) tablet daily. 0 12/28/2009 Active Comment on above: Take one(1) tablet d aily. Bupropion (13 sources) Aminoketone Start: 07-10-2022 buPROPion Oral, Refills(s) 0 Start Date: 07/10/22 Status: Ordered Start: 11-14-2017 take 1 tablet by bettina th once daily buPROPion XL (WELLBUTRIN XL) 300 mg 24 hr tablet Take 1 tablet by mouth once daily. 0 11/14/2017 Active Comment on above: Take 1 tablet by bettina th once daily. cholecalciferol 0.025 mg oral tablet (10 sources) Vitamin D Start: 04-01-20 take 1 tablet by mouth once daily Cholecalciferol, Vitamin D3, (VITAMIN D) 1,000 unit Tab Take 1 tablet by mouth once daily. 04/01/2012 Active Comment on above: Take 1 tablet by bettina th once daily. Cipro (3 sources) Quinolone Antimicrobial Start: 07-10-20 Cipro Oral, q12hr, Refills(s) 0 Start Date: 07/10/22 Status: Ordered clonazePAM (11 sources) Benzodiazepine Start: 07-10-20 clonazepam Oral, TID, Refills(s) 0 Start Date: 07/10/22 Status: Ordered Start: 03-04-2019 clonazePAM (KL ONOPIN) 0.5 mg tablet Take 2 tablets by mouth as needed for up to 180 days. 03/04/2019 Active Comment on above: Take 2 tablets by mo [facility] as needed for up to 180 days. Synthroid (13 sources) l-Thyroxine Start: 07-10-2022 Synthroid Oral, Daily, Refills(s) 0 Start Date: 07/10/22 Status: Ordered Start: 03-04-2019 take 1 tablet by bettina th once daily levothyroxine (SYNTHROID) 88 mcg tablet Take 1 tablet by mouth once daily. 03/04/2019 Active Comment on above: Take 1 tablet by bettina th once daily. loperamide hydrochloride 2 mg oral tablet (10 sources) Opioid Agonist take 1 tablet by mouth three times daily Loperamide HCl (IMODIUM) 2 mg tab Take 2 mg by mouth three times daily. Active Comment on above: Take 2 mg by mouth t hree times daily. Losartan (13 sources) Angiotensin 2 Receptor Avtar Start: losartan Oral, Daily, Refills(s) 0 Start Date: 07/10/22 Status: Ordered Start: 03-04-2019 take 1 tablet by bettina th once daily losartan (COZAAR) 100 mg tablet Take 1 tablet by mouth once daily. 03/04/2019 Active Comment on above: Take 1 tablet by bettina th once daily. magnesium oxide 400 mg oral tablet (10 sources) Start: 03-04-20 take 1 tablet by mouth once daily magnesium oxide (MAG-OX) 400 mg (241.3 mg magnesium) tablet Take 1 tablet by mouth once daily. 03/04/2019 Active Comment on above: Take 1 tablet by bettina th once daily. Meclizine (3 sources) Antiemetic Start: 07-10-20 meclizine TID, Refills(s) 0 Start Date: 07/10/22 Status: Ordered Metoprolol (3 sources) beta-Adrenergic Avtar Start: 07-10-20 metoprolol Refills(s) 0 Start Date: 07/10/22 Status: Ordered MULTIVITAMIN TAB (10 sources) Start: 09-06-20 MULTIVITAMIN TAB Indications: Other and unspecified adverse effect of drug, medicinal and biological substance , Encounter for long-term (current) use of steroids Take one(1) tablet daily. 0 09/06/2006 Active Comment on above: Take one(1) tablet d aily. mycophenolate mofetil 250 mg oral capsule (15 sources) Start: 11-15-20 End: 12-28-19 take 2 capsules by mouth once daily in the morning mycophenolate mofetil (CELLCEPT) 250 mg capsule TAKE 2 CAPS BY MOUTH EVERY DAY IN THE MORNING & 2 CAPS IN THE EVENING 120 capsule 2 12/28/2024 Active Start: 07-26-2022 End: 09-11-2022 take 2 capsules [...] transplant. omega-3 fatty acids 1,000 mg cap (10 sources) Start: 03-12-2014 take 2 capsules by mouth once daily omega-3 fatty acids 1,000 mg cap Indications: Heart replaced by transplant (HCC) Take 2 capsules by mouth once daily. 03/12/2014 Active Start: 03-12-2014 take 2 capsules by m outh once daily omega-3 fatty acids 1,000 mg cap Indications: Heart replaced by transplant (HCC) Take 2 capsules by mouth once daily. 0 03/12/2014 Active Comment on above: Take 2 capsules by m outh once daily. perflutren lipid microspheres 1.3 mL in NaCl (PF) 0.9% 10 mL injection (DEFINITY) (9 sources) Start: 02-09-2022 End: 05-11-2023 perflutren lipid microspheres 1.3 mL in NaCl (PF) 0.9% 10 mL injection (DEFINITY) Pramipexole (13 sources) Nonergot Dopamine Agonist Start: 07-10-2022 pramipexole Oral, Refills(s) 0 Start Date: 07/10/22 Status: Ordered Start: 04-25-2015 take 1 tablet by bettina th once daily at bedtime pramipexole (MIRAPEX) 0.25 mg tablet Take 1 tablet by mouth daily at bedtime. 0 04/25/2015 Active Comment on above: Take 1 tablet by bettina th daily at bedtime. predniSONE (3 sources) Start: 07-10-2022 predniSONE Oral, Daily, Refills(s) 0 Start Date: 07/10/22 Status: Ordered Simvastatin (13 sources) HMG-CoA Reductase Inhibitor Start: 07-10-2022 simvastatin [...] % (flush) 10 mL (BD POSIFLUSH) Tacrolimus (17 sources) Calcineurin Inhibitor Immunosuppressant Start: 07-10-2022 tacrolimus Refills(s) 0 Start Date: 07/10/22 Status: Ordered Start: 07-05-2022 take 1 capsule by mo uth once daily tacrolimus IR (PROGRAF) 0.5 mg capsule Indications: Heart transplanted (HCC) Take 1 capsule by mouth once daily. 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 No Dr Don 07/05/2022 Active Start: 05-08-2022 End: 07-05-2022 take [...] heart replaced by transplant. No Dr Don Problems Active Problems Problem Classification Problem Date Documented Date Episodic/Chronic Acute and unspecified renal failure (3 sources) Chronic renal failure 07-10-2022 Chronic Anxiety disorders (13 sources) Anxiety disorder; Translations: [Anxiety disorder, unspecified] Onset: 07-05-2015 07-05-2015 Chronic Chronic kidney disease (2 sources) Chronic kidney disease; Translations: [Chronic kidney disease, stage 3b] Onset: 01-07-2023 Congestive heart failure; nonhypertensive (2 sources) Unspecified diastolic (congestive) heart failure; Translations: [Heart failure, unspecified] Onset: 08-08-2022 Chronic Coronary atherosclerosis and other heart disease (3 sources) Coronary arteriosclerosis 07-10-2022 Chronic Deficiency and other anemia (3 sources) Anemia 07-10-2022 Episodic Diabetes mellitus without complication (11 sources) Type 2 diabetes mellitus; Translations: [Type 2 diabetes mellitus without complications] Onset: 04-29-2014 Chronic Essential hypertension (20 sources) Hypertensive disorder; Translations: [Essential (primary) hypertension] Onset: 08-12-2013 Resolved: 09-02-2019 07-10-2022 Chronic Fever of unknown origin (4 [...] W/HEART FAIL] Onset: 01-10-2023 Chronic Mood disorders (14 sources) Depressive disorder; Translations: [Depression] Onset: 08-10-2013 Resolved: 08-12-2013 07-10-2022 Chronic Nausea and vomiting (3 sources) Nausea and vomiting 07-12-2022 Episodic Nonspecific chest pain (1 source) Chest pain; Translations: [Chest pain, unspecified] Onset: 04-08-2023 Episodic Other aftercare (1 source) Other watermaster (current) drug therapy; Translations: [OTH PENITENTIARY CURRENT DRUG THERAPY] Onset: 02-18-2023 Episodic Other circulatory disease (7 sources) Heart transplant status; Translations: [HEART TRANSPLANT STATUS] Onset: 08-12-2022 Chronic Other diseases of kidney and ureters (3 sources) Kidney disease 07-10-2022 Episodic Other lower respiratory disease (2 sources) Shortness of breath; Translations: [Shortness of breath] Onset: 09-14-2024 Episodic Other nutritional; endocrine; and metabolic disorders (1 source) Abnormal weight loss; Translations: [Abnormal weight loss] Onset: 10-08-2024 Episodic Other upper respiratory infections (1 source) Chronic ethmoidal sinusitis; Translations: [Chronic ethmoidal sinusitis] Onset: 10-30-2007 Resolved: 08-12-2013 08-12-2013 Chronic Pancreatic disorders (not diabetes) (1 source) Other chronic pancreatitis; Translations: [OTHER CHRONIC PANCREATITIS] Onset: 08-08-2022 Chronic Pancreatic disorders (not diabetes) (6 sources) Disorder of pancreas; Translations: [Pancreatic insufficiency] 07-12-2022 Episodic Jamila-; endo-; and myocarditis; cardiomyopathy (except that caused by tuberculosis or sexually transmitted disease) (3 sources) Heart valve disorder 07-10-2022 Chronic Thyroid disorders (17 sources) Hypothyroidism; Translations: [Hypothyroidism, unspecified] Onset: 08-12-2013 Resolved: 05-19-2014 07-10-2022 Chronic Unclassified (1 source) CONTACT W/AND (SUSP) EXPOS COVID-19; Translations: [CONTACT W/AND (SUSP) EXPOS COVID-19] Onset: 11-17-2022 Past or Other Problems Problem Classification Problem Date Documented Da te Episodic/Chronic Abdominal pain (15 sources) Right inguinal pain; Translations: [Right lower quadrant pain] Onset: 3 Resolved: 9 07-12-2022 Episodic Acute and unspecified renal failure (11 sources) Acute injury of kidney; Translations: [Acute kidney failure, unspecified] Onset: 4 Resolved: 4 11-27-2021 Episodic Calculus of urinary tract (4 sources) Kidney stone; Translations: [Calculus of kidney] Onset: 3 Resolved: 4 07-10-2022 Episodic Esophageal disorders (1 source) Gastroesophageal reflux disease; Translations: [Gastro-esophageal reflux disease without esophagitis] Onset: 3 Resolved: 3 11-27-2021 Chronic Genitourinary symptoms and ill-defined conditions (1 source) Personal history of urinary (tract) infections; Translations: [PERS HX URINARY TRACT INFECTIONS] Onset: 2 Episodic Malaise and fatigue (3 sources) Weakness; Translations: [WEAKNESS] Onset: 2 Episodic Noninfectious gastroenteritis (13 sources) Gastroenteritis; Translations: [Noninfective gastroenteritis and colitis, unspecified] Onset: 4 07-12-2022 Episodic Other aftercare (1 source) USP (current) use of aspirin; Translations: [SUSTAINABILITY DIRECTOR CURRENT USE OF ASPIRIN] Onset: 2 Episodic Other aftercare (1 source) Patient encounter status; Translations: [Other watermaster (current) drug therapy] Onset: 8 Resolved: 3 08-12-2013 Episodic Other circulatory disease (1 source) Orthostatic hypotension; Translations: [Orthostatic hypotension] Onset: 4 Resolved: 4 11-27-2021 Episodic Other gastrointestinal disorders (1 source) Diarrhea; Translations: [Diarrhea, unspecified] Onset: 4 Resolved: 9 09-02-2019 Episodic Other lower respiratory disease (1 source) Personal history of pneumonia (recurrent); Translations: [PERSONAL HX OF PNEUMONIA RECURRENT] Onset: 2 Episodic Other screening for suspected conditions (not mental disorders or infectious disease) (4 sources) Encounter for screening mammogram for malignant neoplasm of breast; Translations: [ENC SCR MAMMO MALIG NEOPLASM BREAST] Onset: 2 Episodic Other upper respiratory infections (8 sources) Acute upper respiratory infection, unspecified; Translations: [Acute maxillary sinusitis, unspecified] Onset: 2 Episodic Pneumonia (except that caused by tuberculosis or sexually transmitted disease) (2 sources) Pneumonia; Translations: [Pneumonia, unspecified organism] Onset: 4 Resolved: 9 09-02-2019 Episodic Poisoning by other medications and drugs (1 source) Adverse reaction; Translations: [Other and unspecified adverse effect of drug, medicinal and biological substance] Onset: 6 Resolved: 3 08-12-2013 Episodic Residual codes; unclassified (10 sources) Prevention status; Translations: [Encounter for other specified prophylactic measures] Onset: 4 Episodic Residual codes; unclassified (6 sources) Localized edema; Translations: [LOCALIZED EDEMA] Onset: 3 Episodic Residual codes; unclassified (1 source) Pain, unspecified; Translations: [PAIN UNSPECIFIED] Onset: 2 Episodic Residual codes; unclassified (1 source) Acquired absence of other specified parts of digestive tract; Translations: [ACQ ABSENCE OTH PART DIGESTV TRACT] Onset: 2 Episodic Residual codes; unclassified (1 source) History of immunosuppressive therapy; Translations: [Personal history of immunosupression therapy] Onset: 3 Resolved: 3 08-12-2013 Episodic Residual codes; unclassified (1 source) Delirium; Translations: [Disorientation, unspecified] Onset: 5 Resolved: 9 09-02-2019 Episodic Residual codes; unclassified (1 source) Pain; Translations: [Pain, unspecified] Onset: 7 Resolved: 9 09-02-2019 Episodic Screening and history of mental health and substance abuse codes (1 source) Personal history of nicotine dependence; Translations: [PERSONAL HISTORY OF NICOTINE DEPEND] Onset: 2 Episodic Syncope (2 sources) Syncope and collapse; Translations: [Syncope and collapse] Onset: 4 Episodic Unclassified (1 source) SUMMARY Onset: 3 Resolved: 9 11-27-2021 Unclassified (1 source) Drug therapy finding; Translations: [DVT prophylaxis] Onset: 3 Resolved: 9 11-27-2021 Results Test Name Value Interpretation Reference Range Facility 36on 10-01-2024 36 Regarding echo resul t from 09/25/2024: MD Kaela Smith MA Her echocardiogram shows normal function of the heart but with evidence of elevated pressures in the lungs suggestive of increased fluid in the body. I want her to stop losartan and start taking furosemide 40 mg every other day. Please have her obtain a BMP in 2 weeks and see me in follow-up afterwards. Spoke with patient and made her aware. Scheduled her to see Dr. Dinh on 10/26/2024. Patient verbalized understanding. [facility] Office Visiton 09-14-2024 Follow-up visit [id number] Sylvia Hanna 1945 F Date Provider Department Center 09/14/2024 ANISHA JACOBS JULIAN Hernandez Family History Family history unknown: Yes Level of Service:16735 [place] OFFICE/OUTPATIENT ESTABLISHED MOD MDM 30 MIN [facility] 36on 07-22-2024 36 Patient made aware. I sent her tacrolimus order in the mail for her to have done at [facility] 1 week prior to seeing Dr. Dinh for follow up on 09/14/2024. She verbalized understanding. [facility] 36on 07-21-2024 36 Regarding tacrolimus level drawn on 07/07/2024: MD Kaela Smith MA Did she have the echo? Her tacrolimus level is slightly high. I want a repeat in 2 months. *Dr. Dinh, her echo was performed on 07/13/2024 and is scanned into multimedia engineer. Will you review this and then I will call Sylvia. Thanks. [facility] Office Visiton 07-01-2024 Follow-up visit [id number] Sylvia Hanna 1945 F Date Provider Department Center 07/01/2024 ANISHA JACOBS JULIAN [facility] Family History Family history unknown: Yes Level of Service:12937 [place] OFFICE/OUTPATIENT ESTABLISHED MOD MDM 30 MIN [facility] Activated partial thrombopla stin time (aPTT) in platelet poor plasma by coagulation aOrdered By: NON STAFF on 06-18-2024 aPTT Coag (PPP) [Time] 31.8 s 25.1-36.5 [facility] Comment on above: A hematocrit value g reater than 55% may lead to inaccurate results in coagulation testing. Patients having hematocrit values >55% require a special collection tube for coagulation studies. Please contact the laboratory at [phone] for redraw instructions. INR in Platelet poor plasma by Coagulation assayOrdered By: NON STAFF on 06-18-2024 INR Coag (PPP) [Relative time] 1.3 {INR} Normal [facility] Comment on above: INR Therapeutic Rang [...] Performed By: #### P TT, PT #### [facility] [address] [place] [address] [place] Partial Thromboplastin Timeo n 06-18-2024 aPTT Coag (Bld) [Time] 31.8 s Normal 25.1-36.5 [facility] Comment on above: Result Comment: A he matocrit value greater than 55% may lead to inaccurate results in coagulation testing. Patients having hematocrit values >55% require a special collection tube for coagulation studies. Please contact the laboratory at [phone] for redraw instructions. PERFORMED BY: [place] [id number] PATHOLOGIST RELIEF WORKER ANDREIA ARRINGTON M.D. Performed By: #### P TT, PT #### [address] Prothrombin time (PT)Ordered By: NON STAFF on 06-18-2024 PT Coag (PPP) [Time] 14.4 s High 9.0-12.9 [facility] Comment on above: A hematocrit value g reater than 55% may lead to inaccurate results in coagulation testing. Patients having hematocrit values >55% require a special collection tube for coagulation studies. Please contact the laboratory at [phone] for redraw instructions. Result Comment: A he matocrit value greater than 55% may lead to inaccurate results in coagulation testing. Patients having hematocrit values >55% require a special collection tube for coagulation studies. Please contact the laboratory at [phone] for redraw instructions. Performed By: #### P TT, PT #### [place] [id number] [facility] 36on 04-06-2024 36 I [...] labs as ordered at last visit. [facility] Telephoneon 04-06-2024 Telephone [id number] Sylvia Hanna 1945 F Date Provider Department Center 04/06/2024 ANISHA JACOBS [facility] Family History Family history unknown: Yes [facility] Orders Onlyon 03-18-2024 Orders Only [id number] Sylvia Hanna 1945 F Date Provider Department Center 03/18/2024 [id number] ISLAS GUS Hernandez Family History Family history unknown: Yes [facility] Office Visiton 02-03-2024 Follow-up visit [id number] Sylvia Hanna 1945 F Date Provider Department Center 02/03/2024 ANISHA JACOBS Family History Family history unknown: Yes Level of Service:85255 [place] OFFICE/OUTPATIENT ESTABLISHED MOD MDM 30 MIN [facility] Office Visiton 11-12-2023 Follow-up visit [id number] Sylvia Hanna 1945 F Date Provider Department Center 11/12/2023 ANISHA JACOBS Family History Family history unknown: Yes Level of Service:39415 [place] OFFICE/OUTPATIENT ESTABLISHED MOD MDM 30-39 MIN [facility] 36on 10-26-2023 36 Her tacrolimus level from 10/16/2023 was 1.4. still very low. I believe she is currently taking tacrolimus (Prograf) 0.5 mg bid. I want her to increase to 1 mg bid and obtain another trough level in 2-3 weeks. [facility] Telephoneon 10-26-2023 Telephone [id number] Sylvia Hanna 1945 F Date Provider Department Center 10/26/2023 ANISHA JACOBS Family History Family history unknown: Yes [facility] CHEMISTRYOrdered By: SYSTEM SYSTEM on 04-08-2023 Anion gap [Moles/Vol] 11 mmol/L Normal 6 - 16 mEq/L [facility] Remisol Calcium [Mass/Vol] 8.6 mg/dL Low 8.9 - 11. 1 mg/dL [facility] Remisol Chloride [Moles/Vol] 99 mmol/L Low 101 - 1 11 mmol/L [facility] Rem[facility] CO2 [Moles/Vol] 25 mmol/L Normal 21 - 31 mmol/L [facility] Remisol Creatinine [Mass/Vol] 1.3 mg/dL Normal 0.5 - 1.3 mg/dL [facility] Remisol GFR/1.73 sq M.predicted among non-blacks MDRD (S/P/Bld) [Vol rate/Area] 42 mL/min/1.73 m2 Low >=59mL/min/ 1.73 m2 [facility] Chem S Glucose [Mass/Vol] 124 mg/dL Normal [...] 9.70 pg/mL Low 10.10 - 27.10 pg/mL [facility] Remisol CHEMISTRYOrdered By: SYSTEM SYSTEM on 04-07-2023 [...] 35 mL/min/1.73 m2 Low >=59mL/min/ 1.73 m2 [facility] Chem S Glucose [Mass/Vol] 139 mg/dL Normal [...] 13.0 % Normal 10.9 - 14.2 % FT [facility] Hematocrit (Bld) [Volume fraction] 38.4 % Normal 34.0 - 46.0 % [facility] Hemoglobin (Bld) [Mass/Vol] 12.6 g/dL Normal 12.0 - 16.0 gm/dL FT HemeAutoSS MCH (RBC) [Entitic mass] 27.9 pg Normal 27.0 - 34.0 pg FT HemeAutoSS MCHC (RBC) [Mass/Vol] 32.7 g/dL Normal 31.4 - 36.0 gm/dL [facility] HemeAutoSS MCV (RBC) [Entitic vol] 85.3 fL Normal 80.0 - 100.0 fL FT HemeAutoSS Platelet mean volume (Bld) [Entitic vol] 7.3 fL Normal 6.4 - 10.8 fL FT HemeAutoSS Platelets (Bld) [#/Vol] 167.0 E9/L Normal 150.0 - 500.0 E9/L FT HemeAutoSS RBC (Bld) [#/Vol] 4.5 E12/L Normal 4.3 - 5.9 E12/L FT HemeAutoSS WBC corrected for nucl RBC Auto (Bld) [#/Vol] 7.3 E9/L Normal 4.0 - 11.0 E9/L FT HemeAutoSS INFLUENZA A AND B AGon 03-05 [facility] SEE BELOW Normal [facility] Comment on above: Result Comment: Nega tive for Flu A protein angiten. Infection due to Flu A cannot be ruled out. Flu A angiten in the sample may be below the detection limit of the test. Performed By: #### E RUR #### [facility] [address] [address] [address] Hardeep Rivera [facility] SEE BELOW Normal [facility] Comment on above: Result Comment: Nega tive for Flu B protein antigen. Infection due to Flu B cannot be ruled out. Flu B antigen in the sample may be below the detection limit of the test. Performed By: #### E RUR #### [facility] [address] [address] [address] Hardeep Rivera INFLUENZA A AG Negative Normal NEGATIVE SEE COMMENT [facility] Comment on above: Performed By: #### E RUR #### [facility] [address] [address] [address] Hardeep Rivera INFLUENZA B AG Negative Normal NEGATIVE SEE COMMENT [facility] Comment on above: Performed By: #### E RUR #### [facility] [address] [address] [address] Hardeep Rivera SYMPTOMATIC COVID-19 ANTIGEN on 03-05-2023 EUA Statement SEE BELOW Normal [facility] Comment on above: Result [...] revoked sooner. Performed By: #### C VDAGS ####[facility] [address] [address]Dr. Hardeep Rivera SARS-CoV-2 (COVID-19) RNA ULICES+probe Ql (Unsp spec) Positive Abnormal NEGATIVE [facility] Comment on above: Performed By: #### C VDAGS ####[facility] [address] [id number]. Hardeep Rivera FK506 (TACROLIMUS) WHOLE BLO ODon 02-28-2023 Tacrolimus (FK506), Blood 5.8 ng/mL Normal 2.0-20.[address] [facility] Comment on above: Result Comment: Trou gh (immediately following transplant) 15.0 . Trough (steady state, 2 weeks or more after transplant): 3.0 - 8.0 . Performed by LC-MS/MS technology. Performed By: #### F K506T ####[facility] [address] [address]Dr. Hardeep Rivera CBC AUTO DIFFon 02-14-2023 BASO # 0.0 103/ul Normal 0.0-0.1 [facility] Comment on above: Performed By: #### RANDALL OLSON #### [facility] [address] [place] [address] Dr. Hardeep Rivera Basophils/100 WBC (Bld) 0.5 % Normal 0.2-2.[address] [facility] Comment on above: Performed By: #### RANDALL OLSON #### [facility] [address] [place] [address] Dr. Hardeep Rivera EO # 0.2 103/ul Normal 0.0-0.7 [facility] Comment on above: Performed By: #### RANDALL OLSON #### [facility] [address] [place] [address] Dr. Hardeep Rivera Eosinophils/100 WBC (Bld) 3.5 % Normal 0.9-7.0 [facility] Comment on above: Performed By: #### RANDALL OLSON #### [facility] [address] [place] [address] Dr. Hardeep Rivera Erythrocyte distribution width (RBC) [Ratio] 12.3 % Normal 11.0-15.0 [facility] Comment on above: Performed By: #### RANDALL OLSON #### [facility] [address] [place] [address] Dr. Hardeep Rivera Hematocrit (Bld) [Volume fraction] 38.7 % Normal 36.0-48.[address] [facility] Comment on above: Performed By: #### HARI OLSONRO #### [facility] [address] [place] [address] Dr. Hardeep Rivera Hemoglobin (Bld) [Mass/Vol] 12.6 g/dL Normal 12.0-16.[address] [facility] Comment on above: Performed By: #### E RUR, UMICRO #### [facility] [address] [address] [address] Hardeep Rivera IG # 0.03 10e3/ul Normal 0.00-0.03 [facility] Comment on above: Performed By: #### E RUR, UMICRO #### [facility] [address] [place] [address] Dr. Hardeep Rivera IG % 0.5 % Normal 0.0-0.5 [facility] Comment on above: Performed By: #### E RUR, UMICRO #### [facility] [address] [place] [address] Dr. Hardeep Rivera LYMPH # 0.8 103/ul Critically low 1.2-3.8 [facility] Comment on above: Performed By: #### E KATHRIN, UMICRO #### [facility] [address] [place] [address] Dr. Hardeep Rivera Lymphocytes/100 WBC (Bld) 13.2 % Critically low 20.5-60.0 [facility] Comment on above: Performed By: #### Dedeee PINON, UMICRO #### [facility] [address] [place] [address] Dr. Hardeep Rivera MANUAL DIFF REQ NO Normal [facility] Comment on above: Performed By: #### E RUTrish, UMICRO #### [facility] [address] [place] [address] Dr. Hardeep Rivera MCH (RBC) [Entitic mass] 28.3 pg Normal 26.7-34.0 [facility] Comment on above: Performed By: #### E RUTrish, UMICRO #### [facility] [address] [place] [address] Dr. Hardeep Rivera MCHC (RBC) [Mass/Vol] 32.6 g/dL Normal 29.9-35.2 [facility] Comment on above: Performed By: #### Deedee RUR, UMICRO #### [facility] [address] [place] [address] Dr. Hardeep Rivera MCV (RBC) [Entitic vol] 87.0 fL Normal 81.0-99.[address] [facility] Comment on above: Performed By: #### RANDALL OLSON #### [facility] [address] [place] [address] Dr. Hardeep Rivera MONO # 0.8 103/ul Normal 0.3-0.[address] [facility] Comment on above: Performed By: #### RANDALL OLSON #### [facility] [address] [place] [address] Dr. Hardeep Rivera Monocytes/100 WBC (Bld) 12.9 % Critically high 1.7-12.[address] [facility] Comment on above: Performed By: #### RANDALL OLSON #### [facility] [address] [place] [address] Dr. Hardeep Rivera NEUT # 4.4 103/ul Normal 1.4-6.[address] [facility] Comment on above: Performed By: #### RANDALL OLSON #### [facility] [address] [place] [address] Dr. Hardeep Rivera Neutrophils/100 WBC (Bld) 69.4 % Normal 43.0-75.[address] [facility] Comment on above: Performed By: #### RANDALL OLSON #### [facility] [address] [place] [address] Dr. Hardeep Rivera Platelet mean volume (Bld) [Entitic vol] 9.0 fL Critically low 9.5-13.[address] [facility] Comment on above: Performed By: #### HARI OLSONRO #### [facility] [address] [place] [address] Dr. Hardeep Rivera PLT 205 103/ul Normal 150-[address] [facility] Comment on above: Performed By: #### HARI OLSONRO #### [facility] [address] [place] [address] Dr. Hardeep Rivera RBC 4.45 106/ul Normal 4.20-5.[address] [facility] Comment on above: Performed By: #### HARI OLSONRO #### [facility] [address] [address] [address] Hardeep Rivera WBC 6.3 103/ul Normal 4.0-11.[address] [facility] Comment on above: Performed By: #### RANDALL OLSON #### [facility] [address] [place] [address] HEAD WO CONon [...] CAMERON NELSON Date: 2023-02-14 15:46 Normal [facility] ER URINE PROFILEon 3 Bilirubin Ql (U) Negative Normal NEGATIVE The [facility] Comment on above: Performed By: #### RANDALL OLSON #### [facility] [address] [place] [address] Dr. Hardeep Rivera Clarity (U) CLEAR Normal CLEAR [facility] Comment on above: Performed By: #### RANDALL OLSON #### [facility] [address] [address] [address] Hardeep Rivera Color (U) LT. YELLOW Normal YELLOW [facility] Comment on above: Performed By: #### E RUR, UMICRO #### [facility] [address] [place] [address] Dr. Hardeep FRANCIS A micrscopic examina tion will be performed if indicated. Normal [facility] Comment on above: Performed By: #### E RUR, UMICRO #### [facility] [address] [place] [address] Dr. Hardeep Rivera Glucose Ql (U) Negative Normal NEGATIVE [facility] Comment on above: Performed By: #### E RUR, UMICRO #### [facility] [address] [place] [address] Dr. Hardeep Rivera Hemoglobin Ql (U) TRACE-INTACT Abnormal NEGATIVE [facility] Comment on above: Performed By: #### E RUR, UMICRO #### [facility] [address] [place] [address] Dr. Hardeep Rivera Ketones Ql (U) Negative Normal NEGATIVE [facility] Comment on above: Performed By: #### E RUR, UMICRO #### [facility] [address] [place] [address] Dr. Hardeep Rivera LEUKOCYTES Negative Normal NEGATIVE [facility] Comment on above: Performed By: #### Deedee RUTrish, UMICRO #### [facility] [address] [place] [address] Dr. Hardeep Rivera Nitrite Ql (U) Negative Normal NEGATIVE [facility] Comment on above: Performed By: #### E RUR, UMICRO #### [facility] [address] [place] [address] Dr. Hardeep Rivera pH (U) 7.0 [pH] Normal 5-9 [facility] Comment on above: Performed By: #### E RUR, UMICRO #### [facility] [address] [place] [address] Dr. Hardeep Rivera Protein (U) [Mass/Vol] 30 mg/dL Abnormal NEGATIVE/ TRACE [facility] Comment on above: Performed By: #### E RUR, UMICRO #### [facility] [address] [address] [address] Hardeep Rivera SPEC GRAVITY 1.010 Normal 1.005-<=1.[address] [place] [address] Comment on above: Performed By: #### HARI OLSONRO #### [facility] [address] [place] [address] Dr. Hardeep Rivera UR MICRO IND INDICATED Normal [facility] Comment on above: Performed By: #### HARI OLSONRO #### [facility] [address] [address] [address] Hardeep Rivera Urobilinogen Qn (U) 0.2 {Kevon'U}/dL Normal 0.2 - 1. 0 [facility] Comment on above: Performed By: #### HARI OLSONRO #### [facility] [address] [place] [address] Dr. Hardeep Rivera PROF 14(COMP METB)on 023 Albumin [Mass/Vol] 3.5 g/dL Normal 3.4-5.0 [facility] Comment on above: Performed By: #### H STROPN, CMP, TSH ####[facility] [address] [address]DrLaura Rivera Albumin/Globulin [Mass ratio] 1.2 {ratio} Normal [facility] Comment on above: Performed By: #### H STROPN, CMP, TSH ####[facility] [address] [address]DrLaura Rivera ALP [Catalytic activity/Vol] 153 U/L Critically high 46-[address] [facility] Comment on above: Performed By: #### H STROPN, CMP, TSH ####[facility] [address] [address]DrLaura Rivera ALT [Catalytic activity/Vol] 21 U/L Normal 14-59 [facility] Comment on above: Performed By: #### H STROPN, CMP, TSH ####[facility] [address] [address]DrLaura Rivera Anion gap [Moles/Vol] 9.3 mmol/L Normal [facility] Comment on above: Performed By: #### H TYLER CMP, TSH ####[facility] [address] [address]Dr. Hardeep Rivera AST [Catalytic activity/Vol] 23 U/L Normal 15-37 [facility] Comment on above: Performed By: #### H TYLER CMP, TSH ####[facility] [address] [address]Dr. Hardeep Rivera Bilirubin [Mass/Vol] 0.6 mg/dL Normal 0.2-1.0 [facility] Comment on above: Performed By: #### H TYLER CMP, TSH ####[facility] [address] [address]Dr. Hardeep Rivera Calcium [Mass/Vol] 8.4 mg/dL Critically low 8.5-10.1 [facility] Comment on above: Performed By: #### H TYLER CMP, TSH ####[facility] [address] [address]Dr. Hardeep Rivera Chloride [Moles/Vol] 96 mmol/L Critically low 98-107 [facility] Comment on above: Performed By: #### H TYLER CMP, TSH ####[facility] [address] [address]Dr. Hardeep Rivera CO2 [Moles/Vol] 29.3 mmol/L Normal 21.0-32.0 [facility] Comment on above: Performed By: #### H TYLER CMP, TSH ####[facility] [address] [address]Dr. Hardeep Rivera Creatinine [Mass/Vol] 1.16 mg/dL Critically high 0.55-1.02 [facility] Comment on above: Performed By: #### H STRONATHANIEL, CMP, TSH ####[facility] [address] [address]Dr. Hardeep Rivera EGFR-AF [place] 55 mL/min/1.73m2 Critically low >=[address] [facility] Comment on above: Performed By: #### H STROPN, CMP, TSH ####[facility] [address] [address]Dr. Hardeep Rivera EGFR-NON AF [place]IZ[place] 45 mL/min/1.73m2 Critically low >=60 [facility] Comment on above: Performed By: #### H STROPN, CMP, TSH ####[facility] [address] [address]Dr. Hardeep Rivera Globulin (S) [Mass/Vol] 2.9 g/dL Normal [facility] Comment on above: Performed By: #### H STROPN, CMP, TSH ####[facility] [address] [address]Dr. Hardeep Rivera Glucose [Mass/Vol] 105 mg/dL Normal 74-106 [facility] Comment on above: Performed By: #### H STROPN, CMP, TSH ####[facility] [address] [address]Dr. Hardeep Rivera Potassium [Moles/Vol] 4.6 mmol/L Normal 3.5-5.1 [facility] Comment on above: Performed By: #### H STROPN, CMP, TSH ####[facility] [address] [place], [place] [address]Dr. Hardeep Rivera Protein [Mass/Vol] 6.4 g/dL Normal 6.4-8.2 [facility] Comment on above: Performed By: #### H STROPN, CMP, TSH ####[facility] [address] [address]Dr. Hardeep Rivera Sodium [Moles/Vol] 130 mmol/L Critically low 136-145 [facility] Comment on above: Performed By: #### H STROPN, CMP, TSH ####[facility] [address] [address]Dr. Hardeep Rivera Urea nitrogen [Mass/Vol] 27.0 mg/dL Critically high 7.0-18.0 [facility] Comment on above: Performed By: #### H STROPN, CMP, TSH ####[facility] [address] [place], [place] [address]Dr. Hardeep Rivera Urea nitrogen/Creatinine [Mass ratio] 23.3 mg/mg Normal [facility] Comment on above: Performed By: #### H TYLER, CMP, TSH ####[facility] [address] [address]Dr. Hardeep Rivera PROTIMEon 02-14-2023 INR Coag (PPP) [Relative time] 1.07 {INR} Normal [facility] Comment on above: Performed By: #### P T, PTT ####[facility] [address] [place], [place] [address]Dr. Hardeep Rivera INR GUIDELINES SEE BELOW Normal [facility] Comment on above: Result Comment: EDMUND RED INR: 2.0 - 3.0 CONDITIONS NOT LISTED BELOW 2.5 - 3.5 FOR PROSTHETIC HEART VALVE REPLACEMENT 2.5 - 3.5 RECURRENT THROMBOSIS Performed By: #### P T, PTT ####[facility] [address] [place], [place] [address]Dr. Hardeep Rivera PT Coag (PPP) [Time] 11.3 s Normal 9.0-11.[address] [facility] Comment on above: Performed By: #### P T, PTT ####[facility] [address] [place], [place] [address]Dr. Hardeep Rivera PTTon 02-14-2023 aPTT Coag (Bld) [Time] 29.1 s Normal 22.3-36.[address] [facility] Comment on above: Performed By: #### P T, PTT ####[facility] [address] [place], [place] [address]Dr. Hardeep Rivera TROPONIN, HIGH SENSITIVITYon 02-14-2023 HSTROP 10.4 pg/mL Normal 4.0-51.[address] [facility] Comment on above: Result Comment: CUT- OFF POINTS HAVE BEEN ESTABLISHED BASED ON THE FOURTH UNIVERSAL DEFINITIONS OF MYOCARDIAL INFARCTION. THE UPPER REFERENCE LIMIT (URL) OF TROPONIN, DEFINED THE 99TH PERCENTILE OF cTnI DISTRIBUTION IN A REFERENCE POPULATION, HAS BEEN CONFIRMED THE DECISION THRESHOLD FOR [place] DIAGNOSIS. Performed By: #### H PETEPN, CMP, TSH ####[facility] [address] [id number]. Hardeep Rivera TSHon 02-14-2023 TSH 1.237 uIU/mL Normal 0.358-3.[address] [facility] Comment on above: Performed By: #### H STROPN, CMP, TSH ####[facility] [address] [place], [place] [address]FxDr. Hardeep Rivera URINE MICROSCOPIC ONLYon BACTERIA NONE SEEN Normal NONE SEEN [facility] Comment on above: Performed By: #### Deedee PINON UMICRO #### [facility] [address] [place] [address] Dr. Hardeep Rivera Bacteria identified Cx Nom (U) NOT INDICATED Normal [facility] Comment on above: Performed By: #### Deedee PINON UMICRO #### [facility] [address] [place] [address] Dr. Hardeep Rivera CAST NONE SEEN Normal NONE SEEN [facility] Comment on above: Performed By: #### Deedee PINON UMICRO #### [facility] [address] [place] [address] Dr. Hardeep Rivera Crystals LM Nom (Urine sed) NONE SEEN Normal NONE SEEN [facility] Comment on above: Performed By: #### Deedee PINON UMICRO #### [facility] [address] [place] [address] Dr. Hardeep Rivera Epithelial cells LM Ql (Urine sed) NONE SEEN Normal NONE SEEN /RARE [facility] Comment on above: Performed By: #### Deedee PINON UMICRO #### [facility] [address] [place] [address] Dr. Hardeep Rivera MUCOUS NONE SEEN Normal NONE SEEN [facility] Comment on above: Performed By: #### Deedee PINON UMICRO #### [facility] [address] [place] [address] Dr. Hardeep Rivera RBC 0-2 Normal 0-[address] [facility] Comment on above: Performed By: #### Deedee PINON UMICRO #### [facility] [address] [place] [address] Dr. Hardeep Rivera WBC NONE SEEN Normal NONE SEEN [facility] Comment on above: Performed By: #### E RURRANDALL #### [facility] [address] [place], [place] [address] Dr. Hardeep Rivera XR CHEST 1 Von [...] JAZLYN DUBOSE Date: 2023-02-14 15:50 Normal [address] [facility] FK506 (TACROLIMUS) WHOLE BLO ODon 02-13-2023 Tacrolimus (FK506), Blood 1.4 ng/mL Critically low 2.0-20.0 [facility] Comment on above: Result Comment: Trou gh (immediately following transplant) 15.0 . Trough (steady state, 2 weeks or more after transplant): 3.0 - 8.0 . Performed by LC-MS/MS technology. Performed By: #### E RUR #### [facility] [id number] Hardeep Rivera PROF 14(COMP METB)on 023 Albumin [Mass/Vol] 3.5 g/dL Normal 3.4-5.0 [facility] Comment on above: Performed By: #### C MP ####[facility] [address] [id number]. Hardeep Rivera Albumin/Globulin [Mass ratio] 1.2 {ratio} Normal [facility] Comment on above: Performed By: #### C MP ####[facility] [address] [phone] Rivera ALP [Catalytic activity/Vol] 149 U/L Critically high 46-[address] [facility] Comment on above: Performed By: #### C MP ####[facility] [address] [id number] Rivera ALT [Catalytic activity/Vol] 19 U/L Normal 14-59 [facility] Comment on above: Performed By: #### C MP ####[facility] [address] [id number]. Hardeep Rivera Anion gap [Moles/Vol] 11.7 mmol/L Normal [facility] Comment on above: Performed By: #### C MP ####[facility] [address] [id number]. Hardeep Rivera AST [Catalytic activity/Vol] 27 U/L Normal 15-37 [facility] Comment on above: Performed By: #### C MP ####[facility] [address] [id number]. Hardeep Miguel Bilirubin [Mass/Vol] 0.6 mg/dL Normal 0.2-1.0 [facility] Comment on above: Performed By: #### C MP ####[facility] [address] [id number]. Hardeep Miguel Calcium [Mass/Vol] 8.5 mg/dL Normal 8.5-10.1 [facility] Comment on above: Performed By: #### C MP ####[facility] [address] [id number]. Hardeep Miguel Chloride [Moles/Vol] 96 mmol/L Critically low 98-[address] [facility] Comment on above: Performed By: #### C MP ####[facility] [address] [phone]. Hardeep Miguel CO2 [Moles/Vol] 28.1 mmol/L Normal 21.0-32.0 [facility] Comment on above: Performed By: #### C MP ####[facility] [address] [id number]. Hardeep Miguel Creatinine [Mass/Vol] 1.24 mg/dL Critically high 0.55-1.02 [facility] Comment on above: Performed By: #### C MP ####[facility] [address] [place] [id number]. Preethiarabella Miguel EGFR-AF [place] 51 mL/min/1.73m2 Critically low >=[address] [facility] Comment on above: Performed By: #### C MP ####[facility] [address] [id number]. Hardeep Rivera EGFR-NON AF [place]IZ[place] 42 mL/min/1.73m2 Critically low >=60 [facility] Comment on above: Performed By: #### C MP ####[facility] [address] [id number]. Hardeep Rivera Globulin (S) [Mass/Vol] 3.0 g/dL Normal [facility] Comment on above: Performed By: #### C MP ####[facility] [address] [place] [phone]. Hardeep Rivera Glucose [Mass/Vol] 141 mg/dL Critically high 74-106 T [facility] [place] Comment on above: Performed By: #### C MP ####[facility] [address] [place] [id number]. Hardeep Rivera Potassium [Moles/Vol] 4.8 mmol/L Normal 3.5-5.1 [facility] Comment on above: Performed By: #### C MP ####[facility] [address] [place] [id number]. Hardeep Rivera Protein [Mass/Vol] 6.5 g/dL Normal 6.4-8.2 [facility] Comment on above: Performed By: #### C MP ####[facility] [address] [place] [id number]. Hardeep Rivera Sodium [Moles/Vol] 131 mmol/L Critically low 136-145 Th [facility] Comment on above: Performed By: #### C MP ####[facility] [address] [place] [id number]. Hardeep Rivera Urea nitrogen [Mass/Vol] 29.0 mg/dL Critically high 7.0-18.0 [facility] Comment on above: Performed By: #### C MP ####[facility] [address] [place] [id number]. Hardeep Miguel Urea nitrogen/Creatinine [Mass ratio] 23.4 mg/mg Normal [facility] Comment on above: Performed By: #### C MP ####[facility] [address] [place] [id number]. Hardeep Rivera BNPon 01-09-2023 Natriuretic peptide B (Bld) [Mass/Vol] 336.0 pg/mL Normal <=1,800.[address] [facility] Comment on above: Performed By: #### C MP, TSH, BNP, T7 ####[facility] [address] [place] [address]Dr. Hardeep Rivera CBC AUTO DIFFon 01-09-2023 BASO # 0.0 103/ul Normal 0.0-0.[address] [facility] Comment on above: Performed By: #### C BC #### [facility] [address] [place] [address] Dr. Hardeep Rivera Basophils/100 WBC (Bld) 0.4 % Normal 0.2-2.0 [facility] Comment on above: Performed By: #### C BC #### [facility] [address] [place] [address] Dr. Hardeep Rivera EO # 0.3 103/ul Normal 0.0-0.[address] [facility] Comment on above: Performed By: #### C BC #### [facility] [address] [place] [address] Dr. Hardeep Rivera Eosinophils/100 WBC (Bld) 4.4 % Normal 0.9-7.[address] [facility] Comment on above: Performed By: #### C BC #### [facility] [address] [address] [address] Hardeep Rivera Erythrocyte distribution width (RBC) [Ratio] 12.3 % Normal 11.0-15.[address] [facility] Comment on above: Performed By: #### C BC #### [facility] [address] [place] [address] Dr. Hardeep Rivera Hematocrit (Bld) [Volume fraction] 43.3 % Normal 36.0-48.0 [facility] Comment on above: Performed By: #### C BC #### [facility] [address] [place] [address] Dr. Hardeep Rivera Hemoglobin (Bld) [Mass/Vol] 13.5 g/dL Normal 12.0-16.0 [facility] Comment on above: Performed By: #### C BC #### [facility] [address] [place] [address] Dr. Hardeep Rivera IG # 0.02 10e3/ul Normal 0.00-0.03 [facility] Comment on above: Performed By: #### C BC #### [facility] [address] [place] [address] Dr. Hardeep Rivera IG % 0.3 % Normal 0.0-0.5 [facility] Comment on above: Performed By: #### C BC #### [facility] [address] [place] [address] Dr. Hardeep Rivera LYMPH # 1.1 103/ul Critically low 1.2-3.8 [facility] Comment on above: Performed By: #### C BC #### [facility] [address] [place] [address] Dr. Hardeep Rivera Lymphocytes/100 WBC (Bld) 16.0 % Critically low 20.5-60.0 [facility] Comment on above: Performed By: #### C BC #### [facility] [address] [place] [address] Dr. Hardeep Rivera MANUAL DIFF REQ NO Normal [facility] Comment on above: Performed By: #### C BC #### [facility] [address] [place] [address] Dr. Hardeep Rivera MCH (RBC) [Entitic mass] 28.4 pg Normal 26.7-34.[address] [facility] Comment on above: Performed By: #### C BC #### [facility] [address] [place] [address] Dr. Hardeep iRvera MCHC (RBC) [Mass/Vol] 31.2 g/dL Normal 29.9-35.2 [facility] Comment on above: Performed By: #### C BC #### [facility] [address] [place] [address] Dr. Hardeep Rivera MCV (RBC) [Entitic vol] 91.0 fL Normal 81.0-99.[address] [facility] Comment on above: Performed By: #### C BC #### [facility] [address] [address] [address] Hardeep Rivera MONO # 1.0 103/ul Critically high 0.3-0.8 [facility] Comment on above: Performed By: #### C BC #### [facility] [address] [place] [address] [address] Hardeep Rivera Monocytes/100 WBC (Bld) 14.7 % Critically high 1.7-12.[address] [facility] Comment on above: Performed By: #### C BC #### [facility] [address] [place] [address] Dr. Hardeep Rivera NEUT # 4.4 103/ul Normal 1.4-6.[address] [facility] Comment on above: Performed By: #### C BC #### [facility] [address] [place] [address] Dr. Hardeep Rivera Neutrophils/100 WBC (Bld) 64.2 % Normal 43.0-75.[address] [facility] Comment on above: Performed By: #### C BC #### [facility] [address] [place] [address] Dr. Hardeep Rivera Platelet mean volume (Bld) [Entitic vol] 9.5 fL Normal 9.5-13.[address] [facility] Comment on above: Performed By: #### C BC #### [facility] [address] [place] [address] Dr. Hardeep Rivera PLT 238 103/ul Normal 150-[address] [facility] Comment on above: Performed By: #### C BC #### [facility] [address] [place] [address] Dr. Hardeep Rivera RBC 4.76 106/ul Normal 4.20-5.[address] [facility] Comment on above: Performed By: #### C BC #### [facility] [address] [place] [address] Dr. Hardeep Rivera WBC 6.8 103/ul Normal 4.0-11.0 [facility] Comment on above: Performed By: #### C BC #### [facility] [address] [place] [address] [address] Hardeep Rivera FREE THYROXINE INDEX T7on FTI 3.96 Normal 1.30-4.50 [facility] Comment on above: Performed By: #### C MP, TSH, BNP, T7 ####[facility] [address] [place] [address]Dr. Hardeep Rivera T3U 35.0 % Normal 30.0-39.0 [facility] Comment on above: Performed By: #### C MP, TSH, BNP, T7 ####[facility] [address] [place] [address]Dr. Hardeep Rivera T4 [Mass/Vol] 11.30 ug/dL Normal 4.80-13.90 [facility] Comment on above: Performed By: #### C MP, TSH, BNP, T7 ####[facility] [address] [place] [address]Dr. Hardeep Rivera PROF 14(COMP METB)on 023 Albumin [Mass/Vol] 3.9 g/dL Normal 3.4-5.0 [facility] Comment on above: Performed By: #### C MP, TSH, BNP, T7 ####[facility] [address] [place] [address]DrLaura Rivera Albumin/Globulin [Mass ratio] 1.2 {ratio} Normal [facility] Comment on above: Performed By: #### C MP, TSH, BNP, T7 ####[facility] [address] [place] [address]DrLaura Rivera ALP [Catalytic activity/Vol] 151 U/L Critically high 46-[address] [facility] Comment on above: Performed By: #### C MP, TSH, BNP, T7 ####[facility] [address] [place] [address]DrLaura Rivera ALT [Catalytic activity/Vol] 30 U/L Normal 14-59 [facility] Comment on above: Performed By: #### C MP, TSH, BNP, T7 ####[facility] [address] [place] [address]Dr. Hardeep Rivera Anion gap [Moles/Vol] 15.6 mmol/L Normal [facility] Comment on above: Performed By: #### C MP, TSH, BNP, T7 ####[facility] [address] [place] [address]Dr. Hardeep Rivera AST [Catalytic activity/Vol] 23 U/L Normal 15-[address] [facility] Comment on above: Performed By: #### C MP, TSH, BNP, T7 ####[facility] [address] [place], [place] [address]Dr. Hardeep Rivera Bilirubin [Mass/Vol] 0.7 mg/dL Normal 0.2-1.0 [facility] Comment on above: Performed By: #### C MP, TSH, BNP, T7 ####[facility] [address] [place], [place] [address]Dr. Hardeep Rivera Calcium [Mass/Vol] 9.0 mg/dL Normal 8.5-10.1 [facility] Comment on above: Performed By: #### C MP, TSH, BNP, T7 ####[facility] [address] [place], [place] [address]Dr. Hardeep Rivera Chloride [Moles/Vol] 97 mmol/L Critically low 98-107 [facility] Comment on above: Performed By: #### C MP, TSH, BNP, T7 ####[facility] [address] [place], [place] [address]Dr. Hardeep Rivera CO2 [Moles/Vol] 26.1 mmol/L Normal 21.0-32.0 [facility] Comment on above: Performed By: #### C MP, TSH, BNP, T7 ####[facility] [address]rec[address] [place], [place] [address]Dr. Hardeep Rivera Creatinine [Mass/Vol] 1.78 mg/dL Critically high 0.55-1.02 [facility] Comment on above: Performed By: #### C MP, TSH, BNP, T7 ####[facility] [address]mq[address] [place] [address]Dr. Hardeep Rivera EGFR-AF [place] 33 mL/min/1.73m2 Critically low >=60 [facility] Comment on above: Performed By: #### C MP, TSH, BNP, T7 ####[facility] [address] [place] [address]Dr. Hardeep Rivera EGFR-NON AF [place] 28 mL/min/1.73m2 Critically low >=60 [facility] Comment on above: Performed By: #### C MP, TSH, BNP, T7 ####[facility] [address]mk[address] [place] [address]Dr. Hardeep Rivera Globulin (S) [Mass/Vol] 3.3 g/dL Normal [facility] Comment on above: Performed By: #### C MP, TSH, BNP, T7 ####[facility] [address] [place], [place] [address]Dr. Hardeep Rivera Glucose [Mass/Vol] 127 mg/dL Critically high 74-106 T [facility] [place] Comment on above: Performed By: #### C MP, TSH, BNP, T7 ####[facility] [address] [place] [address]Dr. Hardeep Rivera Potassium [Moles/Vol] 3.7 mmol/L Normal 3.5-5.1 [facility] Comment on above: Performed By: #### C MP, TSH, BNP, T7 ####[facility] [address] [place], [place] [address]Dr. Hardeep Rivera Protein [Mass/Vol] 7.2 g/dL Normal 6.4-8.2 [facility] Comment on above: Performed By: #### C MP, TSH, BNP, T7 ####[facility] [address] [place], [place] [address]Dr. Hardeep Rivera Sodium [Moles/Vol] 135 mmol/L Critically low 136-145 [facility] Comment on above: Performed By: #### C MP, TSH, BNP, T7 ####[facility] [address] [place] [address]Dr. Hardeep Rivera Urea nitrogen [Mass/Vol] 54.0 mg/dL Critically high 7.0-18.0 [facility] Comment on above: Performed By: #### C MP, TSH, BNP, T7 ####[facility] [address] [place], [place] [address]Qo. Hardeep Rivera Urea nitrogen/Creatinine [Mass ratio] 30.3 mg/mg Normal [facility] Comment on above: Performed By: #### C MP, TSH, BNP, T7 ####[facility] [address] [place], [place] [address]Bi. Hardeep Rivera TSHon 01-09-2023 TSH 1.097 uIU/mL Normal 0.358-3.740 [facility] Comment on above: Performed By: #### C MP, TSH, BNP, T7 ####[facility] [address] [place], [place] [address]Sr. Hardeep Rivera ECHOCARDIO M/2D COMPLETEon 0 12-13-2022 ECHOCARDIO M/2D COMPLETE Patient: SYLVIA HANNA Exam Date: 12/13/2022 : 1945 Gender:F Ordering : [facility] Admission #: [id number] Family : Order #: [id number] CLICK HERE TO VIEW EXAM ECHOCARDIOGRAM REPORT [...] Area (VTI): 2.23 cm2, 2.23 cm2 Deceleration Miller: 1.44 m/s2 Pressure Half-Time: 850.98 ms Peak [...] Nolan M.D. on 12/14/2022 at 13:49 Normal [facility] US ALAN DOP LEG BILon [...] HAI FOSTER Date: 2022-12-13 10:51 Normal [facility] BNPon 12-11-2022 Natriuretic peptide B (Bld) [Mass/Vol] 457.0 pg/mL Normal <=1,800.0 [facility] Comment on above: Performed By: #### RANDALL OLSON #### [facility] [address] [place], [place] [address] Dr. Hardeep Rivera CBC AUTO DIFFon 12-11-2022 BASO # 0.0 103/ul Normal 0.0-0.1 [facility] Comment on above: Performed By: #### RANDALL OLSON #### [facility] [address] [place], [place] [address] Dr. Hardeep Rivera Basophils/100 WBC (Bld) 0.4 % Normal 0.2-2.[address] [facility] Comment on above: Performed By: #### RANDALL OLSON #### [facility] [address] [place] [address] Dr. Hardeep Rivera EO # 0.2 103/ul Normal 0.0-0.[address] [facility] Comment on above: Performed By: #### RANDALL OLSON #### [facility] [address] [place] [address] Dr. Hardeep Rivera Eosinophils/100 WBC (Bld) 2.7 % Normal 0.9-7.[address] [facility] Comment on above: Performed By: #### RANDALL OLSON #### [facility] [address] [place] [address] Dr. Hardeep Rivera Erythrocyte distribution width (RBC) [Ratio] 11.9 % Normal 11.0-15.0 [facility] Comment on above: Performed By: #### RANDALL OLSON #### [facility] [address] [place] [address] Dr. Hardeep Rivera Hematocrit (Bld) [Volume fraction] 40.2 % Normal 36.0-48.[address] [facility] Comment on above: Performed By: #### RANDALL OLSON #### [facility] [address] [place] [address] Dr. Hardeep Rivera Hemoglobin (Bld) [Mass/Vol] 13.5 g/dL Normal 12.0-16.[address] [facility] Comment on above: Performed By: #### RANDALL OLSON #### [facility] [address] [place] [address] Dr. Hardeep Rivera IG # 0.03 10e3/ul Normal 0.00-0.[address] [facility] Comment on above: Performed By: #### RANDALL OLSON #### [facility] [address] [place] [address] Dr. Hardeep Rivera IG % 0.4 % Normal 0.0-0.[address] [facility] Comment on above: Performed By: #### RANDALL OLSON #### [facility] [address] [place] [address] Dr. Hardeep Rivera LYMPH # 0.9 103/ul Critically low 1.2-3.8 [facility] Comment on above: Performed By: #### E COLLINSR, UMICRO #### [facility] [address] [place] [address] Dr. Hardeep Rivera Lymphocytes/100 WBC (Bld) 11.3 % Critically low 20.5-60.0 [facility] Comment on above: Performed By: #### E RUR, UMICRO #### [facility] [address] [place] [address] Dr. Hardeep Rivera MANUAL DIFF REQ NO Normal [facility] Comment on above: Performed By: #### E KATHRIN, UMICRO #### [facility] [address] [place] [address] Dr. Hardeep Rivera MCH (RBC) [Entitic mass] 28.4 pg Normal 26.7-34.0 [facility] Comment on above: Performed By: #### E KATHRIN, UMICRO #### [facility] [address] [place] [address] Dr. Hardeep Rivera MCHC (RBC) [Mass/Vol] 33.6 g/dL Normal 29.9-35.2 [facility] Comment on above: Performed By: #### Deedee PINON, UMICRO #### [facility] [address] [place] [address] Dr. Hardeep Rivera MCV (RBC) [Entitic vol] 84.5 fL Normal 81.0-99.0 [facility] Comment on above: Performed By: #### E KATHRIN, UMICRO #### [facility] [address] [place] [address] Dr. Hardeep Rivera MONO # 1.0 103/ul Critically high 0.3-0.8 [facility] Comment on above: Performed By: #### E KATHRIN, UMICRO #### [facility] [address] [place] [address] Dr. Hardeep Rivera Monocytes/100 WBC (Bld) 12.5 % Critically high 1.7-12.[address] [facility] Comment on above: Performed By: #### RANDALL OLSON #### [facility] [address] [place] [address] Dr. Hardeep Rivera NEUT # 5.9 103/ul Normal 1.4-6.[address] [facility] Comment on above: Performed By: #### RANDALL OLSON #### [facility] [address] [place] [address] Dr. Hardeep Rivera Neutrophils/100 WBC (Bld) 72.7 % Normal 43.0-75.[address] [facility] Comment on above: Performed By: #### RANDALL OLSON #### [facility] [address] [place] [address] Dr. Hardeep Rivera Platelet mean volume (Bld) [Entitic vol] 8.6 fL Critically low 9.5-13.[address] [facility] Comment on above: Performed By: #### RANDALL OLSON #### [facility] [address] [place] [address] Dr. Hardeep Rivera PLT 226 103/ul Normal 150-[address] [facility] Comment on above: Performed By: #### RANDALL OLSON #### [facility] [address] [place] [address] Dr. Hardeep Rivera RBC 4.76 106/ul Normal 4.20-5.[address] [facility] Comment on above: Performed By: #### RANDALL OLSON #### [facility] [address] [place] [address] Dr. Hardeep Rivera WBC 8.2 103/ul Normal 4.0-11.[address] [facility] Comment on above: Performed By: #### RANDALL OLSON #### [facility] [address] [place] [address] Dr. Hardeep Rivera FREE THYROXINE INDEX T7on FTI 3.40 Normal 1.30-4.[address] [facility] Comment on above: Performed By: #### RANDALL OLSON #### [facility] [address] [place] [address] Dr. Hardeep Rivera T3U 34.0 % Normal 30.0-39.0 [facility] Comment on above: Performed By: #### Deedee PINON UMICRO #### [facility] [address] [place] [address] Dr. Hardeep Rivera T4 [Mass/Vol] 10.00 ug/dL Normal 4.80-13.90 [facility] Comment on above: Performed By: #### Deedee PINON, UMICRO #### [facility] [address] [place] [address] Dr. Hardeep Rivera PROF 14(COMP METB)on 023 Albumin [Mass/Vol] 3.8 g/dL Normal 3.4-5.0 [facility] Comment on above: Performed By: #### Deedee PINON UMICRO #### [facility] [address] [place] [address] Dr. Hardeep Rivera Albumin/Globulin [Mass ratio] 1.1 {ratio} Normal [facility] Comment on above: Performed By: #### Deedee PINON UMICRO #### [facility] [address] [place] [address] Dr. Hardeep Rivera ALP [Catalytic activity/Vol] 192 U/L Critically high 46-116 [facility] Comment on above: Performed By: #### Deedee PINON, UMICRO #### [facility] [address] [place] [address] Dr. Hardeep Rivera ALT [Catalytic activity/Vol] 22 U/L Normal 14-[address] [facility] Comment on above: Performed By: #### Deedee PINON, UMICRO #### [facility] [address] [place] [address] Dr. Hardeep Rivera Anion gap [Moles/Vol] 11.4 mmol/L Normal [facility] Comment on above: Performed By: #### Deedee PINON, UMICRO #### [facility] [address] [place] [address] Dr. Hardeep Rivera AST [Catalytic activity/Vol] 22 U/L Normal 15-37 [facility] Comment on above: Performed By: #### HARI OLSONRO #### [facility] [address] [place] [address] [address] Hardeep Rivera Bilirubin [Mass/Vol] 0.5 mg/dL Normal 0.2-1.0 [facility] Comment on above: Performed By: #### HARI OLSONRO #### [facility] [address] [place] [address] Dr. Hardeep Rivera Calcium [Mass/Vol] 9.1 mg/dL Normal 8.5-10.1 [facility] Comment on above: Performed By: #### HARI OLSONRO #### [facility] [address] [place] [address] Dr. Hardeep Rivera Chloride [Moles/Vol] 93 mmol/L Critically low 98-107 [facility] Comment on above: Performed By: #### HARI OLSONRO #### [facility] [address] [place] [address] Dr. Hardeep Rivera CO2 [Moles/Vol] 30.8 mmol/L Normal 21.0-32.0 [facility] Comment on above: Performed By: #### HARI OLSONRO #### [facility] [address] [place] [address] Dr. Hardeep Rivera Creatinine [Mass/Vol] 1.49 mg/dL Critically high 0.55-1.02 [facility] Comment on above: Performed By: #### HARI OLSONRO #### [facility] [address] [place] [address] Dr. Hardeep Rivera EGFR-AF [place] 41 mL/min/1.73m2 Critically low >=[address] [facility] Comment on above: Performed By: #### HARI OLSONRO #### [facility] [address] [place] [address] Dr. Hardeep Rivera EGFR-NON AF [place] 34 mL/min/1.73m2 Critically low >=[address] [facility] Comment on above: Performed By: #### HARI OLSONRO #### [facility] [address] [place] [address] [address] Hardeep Rivera Globulin (S) [Mass/Vol] 3.4 g/dL Normal [facility] Comment on above: Performed By: #### Deedee PINON, UMICRO #### [facility] [address] [place] [address] [address] Hardeep Rivera Glucose [Mass/Vol] 116 mg/dL Critically high 74-106 T [facility] [place] Comment on above: Performed By: #### E KATHRIN, UMICRO #### [facility] [address] [place] [address] [address] Hardeep Rivera Potassium [Moles/Vol] 4.2 mmol/L Normal 3.5-5.1 [facility] Comment on above: Performed By: #### Deedee PINON, UMICRO #### [facility] [address] [place] [address] Dr. Hardeep Rivera Protein [Mass/Vol] 7.2 g/dL Normal 6.4-8.2 [facility] Comment on above: Performed By: #### Deedee PINON UMICRO #### [facility] [address] [place] [address] [address] Hardeep Rivera Sodium [Moles/Vol] 131 mmol/L Critically low 136-145 Th [facility] Comment on above: Performed By: #### Deedee PINON, UMICRO #### [facility] [address] [place] [address] [address] Hardeep Rivera Urea nitrogen [Mass/Vol] 38.0 mg/dL Critically high 7.0-18.0 [facility] Comment on above: Performed By: #### Deedee PINON UMICRO #### [facility] [address] [address] [address] Hardeep Rivera Urea nitrogen/Creatinine [Mass ratio] 25.5 mg/mg Normal [facility] Comment on above: Performed By: #### Deedee PINON, UMICRO #### [facility] [address] [address] [address] Hardeep Rivera TSHon 12-11-2022 TSH 6.407 uIU/mL Critically high 0.358-3.740 [facility] Comment on above: Performed By: #### E RANDALL PINON #### [facility] [address] [place] [address] Dr. Hardeep Rivera Covid-19 PCR ([facility])on 11-01 SARS-CoV-2 (COVID-19) RNA ULICES+probe Ql (Unsp spec) Not detected Normal NOT DETECTED [facility] Comment on above: Result Comment: This test is not yet approved or cleared by the [place] FDA. When there are no FDA-approved or cleared tests available, and other criteria are met, FDA can make tests available under an emergency access mechanism called an Emergency Use Authorization (EUA). The EUA for this test is supported by the [place] of Health and Human Service's (HHS's) declaration [...] SARS-CoV-2. Performed By: #### C VDNEW [facility] #### [facility] [address] [place] [address] Dr. Hardeep Rivera INFLUENZA A AND B AGon 11-14 INFLUANEGH SEE BELOW Normal [facility] Comment on above: Result Comment: Nega tive for Flu A protein angiten. Infection due to Flu A cannot be ruled out. Flu A angiten in the sample may be below the detection limit of the test. Performed By: #### RANDALL OLSON #### [facility] [address] [place] [address] Dr. Hardeep Rivera INFLUBNEG SEE BELOW Normal [facility] Comment on above: Result Comment: Nega tive for Flu B protein antigen. Infection due to Flu B cannot be ruled out. Flu B antigen in the sample may be below the detection limit of the test. Performed By: #### E RUR, UMICRO #### [facility] [address] [place] [address] Dr. Hardeep Rivera INFLUENZA A AG Negative Normal NEGATIVE SEE COMMENT [facility] Comment on above: Performed By: #### E RUR, UMICRO #### [facility] [address] [place] [address] Dr. Hardeep Rivera INFLUENZA B AG Negative Normal NEGATIVE SEE COMMENT The [facility] Comment on above: Performed By: #### E RUR, UMICRO #### [facility] [address] [place] [address] Dr. Hardeep Rivera INTERNAL CONTROLS Within Normal Limits Normal Wi thin Normal Limits The [facility] Comment on above: Performed By: #### E RUR, UMICRO #### [facility] [address] [place] [address] Dr. Hardeep Rivera Covid-19 PCR ([facility])on SARS-CoV-2 (COVID-19) RNA ULICES+probe Ql (Unsp spec) Not detected Normal NOT DETECTED The [facility] Comment on above: Result Comment: This test is not yet approved or cleared by the [place] FDA. When there are no FDA-approved or cleared tests available, and other criteria are met, FDA can make tests available under an emergency access mechanism called an Emergency Use Authorization (EUA). The EUA for this test is supported by the [place] of Health and Human Service's (HHS's) declaration [...] consistent with SARS-CoV-2. Performed By: #### C VDTBH #### [facility] [address] [place] [address] Dr. Hardeep Rivera INFLUENZA A AND B [facility] 10-03 [facility] SEE BELOW Normal The [facility] Comment on above: Result Comment: Nega tive for Flu A protein angiten. Infection due to Flu A cannot be ruled out. Flu A angiten in the sample may be below the detection limit of the test. Performed By: #### Deedee PINON, UMICRO #### [facility] [address] [place] [address] Dr. Hardeep Rivera [facility] BELOW Normal [facility] Comment on above: Result Comment: Nega tive for Flu B protein antigen. Infection due to Flu B cannot be ruled out. Flu B antigen in the sample may be below the detection limit of the test. Performed By: #### Deedee PINON, UMICRO #### [facility] [address] [place] [address] Dr. Hardeep Rivera INFLUENZA A AG Negative Normal NEGATIVE SEE COMMENT [facility] Comment on above: Performed By: #### Deedee PINON, UMICRO #### [facility] [address] [place] [address] Dr. Hardeep Rivera INFLUENZA B AG Negative Normal NEGATIVE SEE COMMENT [facility] Comment on above: Performed By: #### Deedee PINON, UMICRO #### [facility] [address] [place] [address] Dr. Hardeep Rivera INTERNAL CONTROLS Within Normal Limits Normal Wi thin Normal Limits [facility] Comment on above: Performed By: #### Deedee PINON, UMICRO #### [facility] [address] [place] [address] Dr. Hardeep Clark 08-16-2022 NIK Telephone (JULIAN CONNELLY MAI) -- SYLVIA HANNA ([id number]) 1945 F Date Time Provider Department 08/16/22 SOY MCCANN CARD [facility] ISACC During your visit today, we recorded the following information about you: Syo Mccann RN 08/16/2022 1:48 PM Signed Patient [...] mg by mouth three times daily. 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 AMYLASEon 08-04-2022 Amylase [Catalytic activity/Vol] 155 U/L Critically high 25-[address] [facility] Comment on above: Performed By: #### C MP, LIPA, BRITTNEY ####[facility] [address] [address]DrLaura Rivera CBC AUTO DIFFon 08-04-2022 BASO # 0.0 103/ul Normal 0.0-0.[address] [facility] Comment on above: Performed By: #### C BC ####[facility] [address] [address]DrLaura Rivera Basophils/100 WBC (Bld) 0.3 % Normal 0.2-2.0 [facility] Comment on above: Performed By: #### C BC ####[facility] [address] [address]Dr. Hardeep Rivera EO # 0.1 103/ul Normal 0.0-0.[address] [facility] Comment on above: Performed By: #### C BC ####[facility] [address] [address]Dr. Hardeep Rivera Eosinophils/100 WBC (Bld) 1.2 % Normal 0.9-7.[address] [facility] Comment on above: Performed By: #### C BC ####[facility] [address] [address]Dr. Hardeep Rivera Erythrocyte distribution width (RBC) [Ratio] 12.2 % Normal 11.0-15.[address] [facility] Comment on above: Performed By: #### C BC ####[facility] [address] [place], [place] [address]Dr. Hardeep Rivera Hematocrit (Bld) [Volume fraction] 38.3 % Normal 36.0-48.[address] [facility] Comment on above: Performed By: #### C BC ####[facility] [address] [place], [place] [address]Dr. Hardeep Rivera Hemoglobin (Bld) [Mass/Vol] 12.9 g/dL Normal 12.0-16.[address] [facility] Comment on above: Performed By: #### C BC ####[facility] [address] [place], [place] [address]Dr. Hardeep Rivera IG # 0.02 10e3/ul Normal 0.00-0.[address] [facility] Comment on above: Performed By: #### C BC ####[facility] [address] [address]Dr. Hardeep Rivera IG % 0.3 % Normal 0.0-0.[address] [facility] Comment on above: Performed By: #### C BC ####[facility] [address] [place], [place] [address]DrLaura Hardeep Rivera LYMPH # 1.1 103/ul Critically low 1.2-3.8 The [facility] Comment on above: Performed By: #### C BC ####[facility] [address] [place] [address]. Hardeep Rivera Lymphocytes/100 WBC (Bld) 16.6 % Critically low 20.5-60.[address] [facility] Comment on above: Performed By: #### C BC ####[facility] [address] [address]Dr. Hardeep Rivera MANUAL DIFF REQ NO Normal [facility] Comment on above: Performed By: #### C BC ####[facility] [address] [address]Dr. Hardeep Rivera MCH (RBC) [Entitic mass] 29.7 pg Normal 26.7-34.[address] [facility] Comment on above: Performed By: #### C BC ####[facility] [address] [place], [place] [address]Dr. Hardeep Rivera MCHC (RBC) [Mass/Vol] 33.7 g/dL Normal 29.9-35.[address] [facility] Comment on above: Performed By: #### C BC ####[facility] [address] [place], [place] [address]Dr. Hardeep Rivera MCV (RBC) [Entitic vol] 88.2 fL Normal 81.0-99.[address] [facility] Comment on above: Performed By: #### C BC ####[facility] [address] [place], [place] [address]Dr. Hardeep Rivera MONO # 0.7 103/ul Normal 0.3-0.[address] [facility] Comment on above: Performed By: #### C BC ####[facility] [address] [place], [place] [address]Dr. Hardeep Rivera Monocytes/100 WBC (Bld) 11.1 % Normal 1.7-12.[address] [facility] Comment on above: Performed By: #### C BC ####[facility] [address] [place], [place] [address]DrLaura Rivera NEUT # 4.6 103/ul Normal 1.4-6.[address] [facility] Comment on above: Performed By: #### C BC ####[facility] [address] [place], [place] [address]Dr. aHrdeep Rivera Neutrophils/100 WBC (Bld) 70.5 % Normal 43.0-75.[address] [facility] Comment on above: Performed By: #### C BC ####[facility] [address] [place], [place] [address]Zf. Hardeep Rivera Platelet mean volume (Bld) [Entitic vol] 9.4 fL Critically low 9.5-13.[address] [facility] Comment on above: Performed By: #### C BC ####[facility] [address] [place], [place] [address]Ii. Hardeep Rivera PLT 203 103/ul Normal 150-[address] [facility] Comment on above: Performed By: #### C BC ####[facility] [address] [address]Dr. Hardeep Rivera RBC 4.34 106/ul Normal 4.20-5.[address] [facility] Comment on above: Performed By: #### C BC ####[facility] [address] [id number]. Hardeep Rivera WBC 6.5 103/ul Normal 4.0-11.[address] [facility] Comment on above: Performed By: #### C BC ####[facility] [id number] Hardeep Rivera CT ABD/PELVIS WO CONon 08-04 [...] ALEXSANDER HARDING Date: 2022-08-04 20:12 Normal [address] [facility] Covid-19 PCR ([facility])on SARS-CoV-2 (COVID-19) RNA ULICES+probe Ql (Unsp spec) Not detected Normal NOT DETECTED [facility] Comment on above: Result Comment: When [...] for this test is supported by the [place] of Health and Human Service's declaration that [...] longer be used). Performed By: #### C VDNEW [facility] ####[facility] [address] [address]Dr. Hardeep Rivera ER URINE PROFILEon 2 Bilirubin Ql (U) Negative Normal NEGATIVE The [facility] Comment on above: Performed By: #### E RUR #### [facility] [address] [place] [address] Dr. Hardeep Rivera Clarity (U) CLEAR Normal CLEAR [facility] Comment on above: Performed By: #### E RUR #### [facility] [address] [place] [address] Dr. Hardeep Rivera Color (U) LT. YELLOW Normal YELLOW [facility] Comment on above: Performed By: #### E RUR #### [facility] [address] [place] [address] Dr. Hardeep Rivera ERUAHD A micrscopic examina tion will be performed if indicated. Normal [facility] Comment on above: Performed By: #### E RUR #### [facility] [address] [place] [address] Dr. Hardeep Rivera Glucose Ql (U) Negative Normal NEGATIVE [facility] Comment on above: Performed By: #### E RUR #### [facility] [address] [place] [address] Dr. Hardeep Rivera Hemoglobin Ql (U) Negative Normal NEGATIVE [facility] Comment on above: Performed By: #### E RUR #### [facility] [address] [place] [address] Dr. Hardeep Rivera Ketones Ql (U) Negative Normal NEGATIVE [facility] Comment on above: Performed By: #### E RUR #### [facility] [address] [place] [address] Dr. Hardeep Rivera LEUKOCYTES Negative Normal NEGATIVE [facility] Comment on above: Performed By: #### E RUR #### [facility] [address] [place] [address] Dr. Hardeep Rivera Nitrite Ql (U) Negative Normal NEGATIVE [facility] Comment on above: Performed By: #### E RUR #### [facility] [address] [place] [address] Dr. Hardeep Rivera pH (U) 7.0 [pH] Normal 5-9 [facility] Comment on above: Performed By: #### E RUR #### [facility] [address] [place] [address] Dr. Hardeep Rivera SPEC GRAVITY <=1.005 Abnormal 1.005-<=1.0 25 [facility] Comment on above: Performed By: #### E RUR #### [facility] [address] [place] [address] Dr. Hardeep Rivera UA PROTEIN Negative Normal NEGATIVE/ TRACE [facility] Comment on above: Performed By: #### E RUR #### [facility] [address] [place] [address] Dr. Hardeep Rivera UR MICRO IND NOT INDICATED Normal [facility] Comment on above: Performed By: #### E RUR #### [facility] [address] [place] [address] Dr. Hardeep Rivera Urobilinogen Qn (U) 0.2 {Kevon'U}/dL Normal 0.2 - 1. 0 [facility] Comment on above: Performed By: #### E RUR #### [facility] [address] [place] [address] Dr. Hardeep Rivera LIPASEon 08-04-2022 Lipase [Catalytic activity/Vol] 1486.0 U/L Critically high 73.0-393.0 [facility] Comment on above: Performed By: #### C ABAD MORE BRITTNEY ####[facility] [address] [address]Dr. Hardeep Rivera PROF 14(COMP METB)on 022 Albumin [Mass/Vol] 3.6 g/dL Normal 3.4-5.0 [facility] Comment on above: Performed By: #### C ABAD MORE, BRITTNEY ####[facility] [address] [address]Dr. Hardeep Rivera Albumin/Globulin [Mass ratio] 1.3 {ratio} Normal [facility] Comment on above: Performed By: #### C ABAD MORE BRITTNEY ####[facility] [address] [place], [place] [address]Dr. Hardeep Rivera ALP [Catalytic activity/Vol] 171 U/L Critically high 46-116 [facility] Comment on above: Performed By: #### C ABAD MORE, BRITTNEY ####[facility] [address] [place], [place] [address]Dr. Hardeep Rivera ALT [Catalytic activity/Vol] 35 U/L Normal 14-[address] [facility] Comment on above: Performed By: #### C ABAD MORE BRITTNEY ####[facility] [address] [address]Dr. Hardeep Rivera Anion gap [Moles/Vol] 11.4 mmol/L Normal [facility] Comment on above: Performed By: #### C ABAD MORE, BRITTNEY ####[facility] [address] [address]Dr. Hardeep Rivera AST [Catalytic activity/Vol] 28 U/L Normal 15-37 [facility] Comment on above: Performed By: #### C ABAD MORE, BRITTNEY ####[facility] [address] [address]Dr. Hardeep Rivera Bilirubin [Mass/Vol] 0.7 mg/dL Normal 0.2-1.[address] [facility] Comment on above: Performed By: #### C ABAD MORE, BRITTNEY ####[facility] [address] [address]Dr. Hardeep Rivera Calcium [Mass/Vol] 8.4 mg/dL Critically low 8.5-10.[address] [facility] Comment on above: Performed By: #### C MP, LIPA, BRITTNEY ####[facility] [address] [address]Dr. Hardeep Rivera Chloride [Moles/Vol] 100 mmol/L Normal 98-[address] [facility] Comment on above: Performed By: #### C MP, LIPA, BRITTNEY ####[facility] [address] [address]Dr. Hardeep Rivera CO2 [Moles/Vol] 25.6 mmol/L Normal 21.0-32.0 The [facility] Comment on above: Performed By: #### C MP, LIPA, BRITTNEY ####[facility] [address] [place], [place] [address]Dr. Hardeep Rivera Creatinine [Mass/Vol] 1.33 mg/dL Critically high 0.55-1.02 [facility] Comment on above: Performed By: #### C MP, LIPA, BRITTNEY ####[facility] [address] [place], [place] [address]Dr. Hardeep Rivera EGFR-AF [place]IZ[place] 47 mL/min/1.73m2 Critically low >=[address] [facility] Comment on above: Performed By: #### C MP, LIPA, BRITTNEY ####[facility] Ps[address] [place], [place] [address]Dr. Hardeep Rivera EGFR-NON AF [place]IZ[place] 39 mL/min/1.73m2 Critically low >=[address] [facility] Comment on above: Performed By: #### C MP, LIPA, BRITTNEY ####[facility] Cry[address]xz[address] [place], [place] [address]Dr. Hardeep Rivera Globulin (S) [Mass/Vol] 2.7 g/dL Normal [facility] Comment on above: Performed By: #### C MP, LIPA, BRITTNEY ####[facility] [address] [place], [place] [address]Dr. Hardeep Rivera Glucose [Mass/Vol] 108 mg/dL Critically high 74-106 T [facility] [place] Comment on above: Performed By: #### C ABAD MORE, BRITTNEY ####[facility] [address] [address]Dr. Preethiarabella Rivera Potassium [Moles/Vol] 4.0 mmol/L Normal 3.5-5.1 [facility] Comment on above: Performed By: #### C ABAD MORE, BRITTNEY ####[facility] [address] [address]Dr. Hardeep Rivera Protein [Mass/Vol] 6.3 g/dL Critically low 6.4-8.2 [facility] Comment on above: Performed By: #### C ABAD MORE, BRITTNEY ####[facility] [address] [address]Dr. Hardeep Rivera Sodium [Moles/Vol] 133 mmol/L Critically low 136-145 Th [facility] Comment on above: Performed By: #### C ABAD MORE, BRITTNEY ####[facility] [address] [address]Dr. Hardeep Rivera Urea nitrogen [Mass/Vol] 23.0 mg/dL Critically high 7.0-18.0 [facility] Comment on above: Performed By: #### C ABAD MORE, BRITTNEY ####[facility] [address] [address]Dr. Hardeep Rivera Urea nitrogen/Creatinine [Mass ratio] 17.3 mg/mg Normal [facility] Comment on above: Performed By: #### C ABAD MORE, BRITTNEY ####[facility] [address] [address]Dr. Hardeep Rivera BOX TEST SENT OUTon 08-02-20 22 SENT TO REF LAB 08/02/2022 [facility] Comment on above: Performed By: #### E RUR #### [facility] [address] [address] [address] Hardeep Rivera CBC AUTO DIFFon 08-02-2022 BASO # 0.0 103/ul Normal 0.0-0.1 [facility] Comment on above: Performed By: #### HARI OLSONRO #### [facility] [address] [place] [address] Dr. Hardeep Rivera Basophils/100 WBC (Bld) 0.3 % Normal 0.2-2.0 [facility] Comment on above: Performed By: #### HARI OLSONRO #### [facility] [address] [place] [address] Dr. Hardeep Rivera EO # 0.1 103/ul Normal 0.0-0.[address] [facility] Comment on above: Performed By: #### HARI OLSONRO #### [facility] [address] [place] [address] Dr. Hardeep Rivera Eosinophils/100 WBC (Bld) 1.4 % Normal 0.9-7.[address] [facility] Comment on above: Performed By: #### HARI OLSONRO #### [facility] [address] [place] [address] Dr. Hardeep Rivera Erythrocyte distribution width (RBC) [Ratio] 12.2 % Normal 11.0-15.0 [facility] Comment on above: Performed By: #### RANDALL OLSON #### [facility] [address] [place] [address] Dr. Hardeep Rivera Hematocrit (Bld) [Volume fraction] 41.2 % Normal 36.0-48.0 [facility] Comment on above: Performed By: #### HARI OLSONRO #### [facility] [address] [place] [address] Dr. Hardeep Rivera Hemoglobin (Bld) [Mass/Vol] 13.6 g/dL Normal 12.0-16.[address] [facility] Comment on above: Performed By: #### HARI OLSONRO #### [facility] [address] [place] [address] Dr. Hardeep Rivera IG # 0.02 10e3/ul Normal 0.00-0.[address] [facility] Comment on above: Performed By: #### E RUR, UMICRO #### [facility] [address] [address] [address] Hardeep Rivera IG % 0.3 % Normal 0.0-0.5 [facility] Comment on above: Performed By: #### E KATHRIN, UMICRO #### [facility] [address] [address] [address] Hardeep Rivera LYMPH # 0.6 103/ul Critically low 1.2-3.8 [facility] Comment on above: Performed By: #### E KATHRIN, UMICRO #### [facility] [address] [place] [address] Dr. Hardeep Rivera Lymphocytes/100 WBC (Bld) 8.9 % Critically low 20.5-60.0 [facility] Comment on above: Performed By: #### Deedee PINON, UMICRO #### [facility] [address] [place] [address] Dr. Hardeep Rivera MANUAL DIFF REQ NO Normal [facility] Comment on above: Performed By: #### Deedee PINON, UMICRO #### [facility] [address] [place] [address] Dr. Hardeep Rivera MCH (RBC) [Entitic mass] 29.6 pg Normal 26.7-34.0 [facility] Comment on above: Performed By: #### Deedee PINON, UMICRO #### [facility] [address] [place] [address] Dr. Hardeep Rivera MCHC (RBC) [Mass/Vol] 33.0 g/dL Normal 29.9-35.2 [facility] Comment on above: Performed By: #### E KATHRIN, UMICRO #### [facility] [address] [place] [address] Dr. Hardeep Rivera MCV (RBC) [Entitic vol] 89.8 fL Normal 81.0-99.0 [facility] Comment on above: Performed By: #### Deedee PINNO, UMICRO #### [facility] [address] [place] [address] Dr. Hardeep Rivera MONO # 0.7 103/ul Normal 0.3-0.8 [facility] Comment on above: Performed By: #### RANDALL OLSON #### [facility] [address] [place] [address] Dr. Hardeep Rivera Monocytes/100 WBC (Bld) 11.6 % Normal 1.7-12.[address] [facility] Comment on above: Performed By: #### RANDALL OLSON #### [facility] [address] [place] [address] Dr. Hardeep Rivera NEUT # 5.0 103/ul Normal 1.4-6.[address] [facility] Comment on above: Performed By: #### RANDALL OLSON #### [facility] [address] [place] [address] Dr. Hardeep Rivera Neutrophils/100 WBC (Bld) 77.5 % Critically high 43.0-75.[address] [facility] Comment on above: Performed By: #### RANDALL OLSON #### [facility] [address] [place] [address] Dr. Hardeep Rivera Platelet mean volume (Bld) [Entitic vol] 9.4 fL Critically low 9.5-13.[address] [facility] Comment on above: Performed By: #### RANDALL OLSON #### [facility] [address] [place] [address] Dr. Hardeep Rivera PLT 200 103/ul Normal 150-[address] [facility] Comment on above: Performed By: #### HARI OLSONRO #### [facility] [address] [place] [address] Dr. Hardeep Rivera RBC 4.59 106/ul Normal 4.20-5.[address] [facility] Comment on above: Performed By: #### HARI OLSONRO #### [facility] [address] [place] [address] Dr. Hardeep Rivera WBC 6.4 103/ul Normal 4.0-11.[address] [facility] Comment on above: Performed By: #### RANDALL OLSON #### [facility] [address] [address] [address] Hardeep Clark 08-02-2022 ODETTEN Telephone (CARD CHF ISACC) -- SYLVIA HANNA ([id number]) 1945 F Date Time Provider Department 08/02/22 LOIDA MATHIAS CARD [facility] ISACC During your visit today, we recorded the following information about you: Linden Rolandkarenjessica 08/02/2022 1:42 PM Signed Patient had labs drawn 08/02/22, uploaded to scanned docs. Loida Mathias APRN.ODETTE 08/07/2022 10:27 AM Signed Received outside labs drawn 08/02 -- FK 4.7 Cr 1.4 BUN 21 K 3.9 FBS 119 WBC 6400 Hgb 13.6 Hct 41 Plts 200 My chart message sent to patient. Advised no changes. Asked that she keep us posted re: if she will be transferring her care. Loida Mathias APRN.SCOOP MACHINE OPERATOR August 07, 2022 10:27 AM Allergies [...] mg by mouth three times daily. - pwacco-cewyqzpz-csgbqxy (CREON) 24,000-76,000 -120,000 unit cpDR Take 3 [...] LINDEN WEEMS on 08/02/[address] [facility] PROF CHEM 8 (BAS METB)on Anion gap [Moles/Vol] 12.2 mmol/L Normal [facility] Comment on above: Performed By: #### RANDALL OLSON #### [facility] [address] [place] [address] Dr. Hardeep Rivera Calcium [Mass/Vol] 8.6 mg/dL Normal 8.5-10.1 [facility] Comment on above: Performed By: #### RANDALL OLSON #### [facility] [address] [place] [address] Dr. Hardeep Rivera Chloride [Moles/Vol] 98 mmol/L Normal 98-107 [facility] Comment on above: Performed By: #### RANDALL OLSON #### [facility] [address] [place] [address] Dr. Hardeep Rivera CO2 [Moles/Vol] 27.7 mmol/L Normal 21.0-32.0 [facility] Comment on above: Performed By: #### RANDALL OLSON #### [facility] [address] [place] [address] Dr. Hardeep Rivera Creatinine [Mass/Vol] 1.42 mg/dL Critically high 0.55-1.02 [facility] Comment on above: Performed By: #### RANDALL OLSON #### [facility] [address] [place] [address] Dr. Hardeep Rivera EGFR-AF [place]IZ[place] 43 mL/min/1.73m2 Critically low >=[address] [facility] Comment on above: Performed By: #### RANDALL OLSON #### [facility] [address] [place] [address] Dr. Hardeep Rivera EGFR-NON AF CITIZEN OF [place] 36 mL/min/1.73m2 Critically low >=60 [facility] Comment on above: Performed By: #### RANDALL OLSON #### [facility] [address] [address] [address] Hardeep Rivera Glucose [Mass/Vol] 119 mg/dL Critically high 74-106 T [facility] [place] Comment on above: Performed By: #### E KATHRIN, UMICRO #### [facility] [address] [place] [address] Dr. Hardeep Rivera Potassium [Moles/Vol] 3.9 mmol/L Normal 3.5-5.1 [facility] Comment on above: Performed By: #### E COLLINSR, UMICRO #### [facility] [address] [place] [address] Dr. Hardeep Rivera Sodium [Moles/Vol] 134 mmol/L Critically low 136-145 Th [facility] Comment on above: Performed By: #### Deedee PINON, UMICRO #### [facility] [address] [place] [address] Dr. Hardeep Rivera Urea nitrogen [Mass/Vol] 21.0 mg/dL Critically high 7.0-18.0 [facility] Comment on above: Performed By: #### Deedee PINON, UMICRO #### [facility] [address] [place] [address] Dr. Hardeep Rivera Urea nitrogen/Creatinine [Mass ratio] 14.8 mg/mg Normal [facility] Comment on above: Performed By: #### Deedee PINON, UMICRO #### [facility] [address] [place] [address] Dr. Hardeep Rivera [facility] Tacrolimus (Bld) [Mass/Vol] 4.7 ng/mL Low 5.0-20.[address] [facility] Comment on above: Order Comment: [...] Test performed by chemiluminescent immunoassay using [employer]. Performed By: #### 1 1253-2 ####[facility] LABCLIA [id number] [address] [id number] [place] Eduardo 07-05-2022 CNPN Telephone (CARD CHF ISACC) -- SYLVIA HANNA ([id number]) 1945 F Date Time Provider Department 07/05/22 SHO CROWLEY [facility] ISACC During your visit today, we [...] care with another team. Sho Crowley APRN, SCOOP MACHINE OPERATOR Pager: [phone] July 05, 2022 10:42 AM Post Heart [...] transplant. No Dr Caldera: Rfl: TACROLIMUS/FK-506 BL [[id number]] Order #: [id number] FUTURE Prescriptions as of 07/05/2022 - tacrolimus [...] mg by mouth three times daily. - cpdrge-ejhwfxvj-wcsazky (CREON) 24,000-76,000 -120,000 unit cpDR Take 3 [...] 09/02/2019 A (more content not included)... Normal [facility]jas BOX TEST SENT OUTon 07-03-20 22 SENT TO REF LAB 07/03/2022 Normal [facility] Comment on above: Performed By: #### E RURANDALL Chambers #### [facility] [address] [place] [address] Dr. Hardeep Rivera CBC AUTO DIFFon 07-03-2022 BASO # 0.0 103/ul Normal 0.0-0.1 [facility] Comment on above: Performed By: #### C BC #### [facility] [address] [place] [address] Dr. Hardeep Rivera Basophils/100 WBC (Bld) 0.3 % Normal 0.2-2.0 [facility] Comment on above: Performed By: #### C BC #### [facility] [address] [place] [address] Dr. Hardeep Rivera EO # 0.1 103/ul Normal 0.0-0.7 [facility] Comment on above: Performed By: #### C BC #### [facility] [address] [place] [address] Dr. Hardeep Rivera Eosinophils/100 WBC (Bld) 0.9 % Normal 0.9-7.0 [facility] Comment on above: Performed By: #### C BC #### [facility] [address] [place] [address] Dr. Hardeep Rivera Erythrocyte distribution width (RBC) [Ratio] 12.2 % Normal 11.0-15.0 [facility] Comment on above: Performed By: #### C BC #### [facility] [address] [place] [address] Dr. Hardeep Rivera Hematocrit (Bld) [Volume fraction] 42.3 % Normal 36.0-48.0 [facility] Comment on above: Performed By: #### C BC #### [facility] [address] [address] [address] Hardepe Rivera Hemoglobin (Bld) [Mass/Vol] 14.0 g/dL Normal 12.0-16.0 [facility] Comment on above: Performed By: #### C BC #### [facility] [address] [place] [address] Dr. Hardeep Rivera IG # 0.04 10e3/ul Critically high 0.00-0.03 [facility] Comment on above: Performed By: #### C BC #### [facility] [address] [place] [address] Dr. Hardeep Rivera IG % 0.5 % Normal 0.0-0.5 [facility] Comment on above: Performed By: #### C BC #### [facility] [address] [place] [address] Dr. Hardeep Rivera LYMPH # 0.8 103/ul Critically low 1.2-3.8 [facility] Comment on above: Performed By: #### C BC #### [facility] [address] [place] [address] Dr. Hardeep Rivera Lymphocytes/100 WBC (Bld) 10.9 % Critically low 20.5-60.0 [facility] Comment on above: Performed By: #### C BC #### [facility] [address] [place] [address] Dr. Hardeep Rivera MANUAL DIFF REQ NO Normal [facility] Comment on above: Performed By: #### C BC #### [facility] [address] [place] [address] Dr. Hardeep Rivera MCH (RBC) [Entitic mass] 29.7 pg Normal 26.7-34.0 [facility] Comment on above: Performed By: #### C BC #### [facility] [address] [place] [address] Dr. Hardeep Rivera MCHC (RBC) [Mass/Vol] 33.1 g/dL Normal 29.9-35.2 [facility] Comment on above: Performed By: #### C BC #### [facility] [address] [address] [address] Hardeep Rivera MCV (RBC) [Entitic vol] 89.8 fL Normal 81.0-99.0 [facility] Comment on above: Performed By: #### C BC #### [facility] [address] [address] [address] Hardeep Rivera MONO # 0.9 103/ul Critically high 0.3-0.8 [facility] Comment on above: Performed By: #### C BC #### [facility] [address] [address] [address] Hardeep Rivera Monocytes/100 WBC (Bld) 11.1 % Normal 1.7-12.0 [facility] Comment on above: Performed By: #### C BC #### [facility] [address] [address] [address] Hardeep Rivera NEUT # 5.8 103/ul Normal 1.4-6.5 [facility] Comment on above: Performed By: #### C BC #### [facility] [address] [address] [address] Hardeep Rivera Neutrophils/100 WBC (Bld) 76.3 % Critically high 43.0-75.0 [facility] Comment on above: Performed By: #### C BC #### [facility] [address] [address] [address] Hardeep Rivera Platelet mean volume (Bld) [Entitic vol] 9.5 fL Normal 9.5-13.5 [facility] Comment on above: Performed By: #### C BC #### [facility] [address] [address] [address] Hardeep Rivera PLT 191 103/ul Normal 150-[address] [facility] Comment on above: Performed By: #### C BC #### [facility] [address] [address] [address] Hardeep Rivera RBC 4.71 106/ul Normal 4.20-5.[address] [facility] Comment on above: Performed By: #### C BC #### [facility] [address] [place], [place] [address] Dr. Hardeep Rivera WBC 7.6 103/ul Normal 4.0-11.0 [facility] Comment on above: Performed By: #### C BC #### [facility] [address] [place], [place] [address] Dr. Hardeep Clark 07-03-2022 CNPN Telephone (CARD CHF ISACC) -- SYLVIA HANNA ([id number]) 1945 F Date Time Provider Department 07/03/22 SOY MCCANN CARD [facility] ISACC During your visit today, we recorded the following information about you: Linden Rolandcarlos 07/03/2022 1:02 PM Signed Patient had labs drawn 07/03/22, uploaded to [employer] docs. Allergies As of Date: 07/03/2022 Noted [...] mg by mouth three times daily. - tklxsx-hvmsmffe-mvhqoyg (CREON) 24,000-76,000 -120,000 unit cpDR Take 3 [...] LINDEN WEEMS on 07/03/[address] [facility] PROF CHEM 8 (BAS METB)on Anion gap [Moles/Vol] 12.9 mmol/L Normal [facility] Comment on above: Performed By: #### RANDALL OLSON #### [facility] [address] [address] [address] Hardeep Rivera Calcium [Mass/Vol] 9.0 mg/dL Normal 8.5-10.1 [facility] Comment on above: Performed By: #### HARI OLSONRO #### [facility] [address] [place] [address] Dr. Hardeep Rivera Chloride [Moles/Vol] 98 mmol/L Normal 98-107 [facility] Comment on above: Performed By: #### HARI OLSONRO #### [facility] [address] [place] [address] Dr. Hardeep Rivera CO2 [Moles/Vol] 28.1 mmol/L Normal 21.0-32.0 [facility] Comment on above: Performed By: #### HARI OLSONRO #### [facility] [address] [place] [address] Dr. Hardeep Rivera Creatinine [Mass/Vol] 1.64 mg/dL Critically high 0.55-1.02 [facility] Comment on above: Performed By: #### RANDALL OLSON #### [facility] [address] [place] [address] Dr. Hardeep Rivera EGFR-AF [place] 37 mL/min/1.73m2 Critically low >=60 [facility] Comment on above: Performed By: #### HARI OLSONRO #### [facility] [address] [place] [address] Dr. Hardeep Rivera EGFR-NON AF [place] 30 mL/min/1.73m2 Critically low >=60 [facility] Comment on above: Performed By: #### HARI OLSONRO #### [facility] [address] [place] [address] Dr. Hardeep Rivera Glucose [Mass/Vol] 114 mg/dL Critically high 74-106 [facility] Comment on above: Performed By: #### HARI OLSONRO #### [facility] [address] [address] [address] Hardeep Rivera Potassium [Moles/Vol] 4.0 mmol/L Normal 3.5-5.1 [facility] Comment on above: Performed By: #### HARI OLSONRO #### [facility] [address] [address] [address] Hardeep Rivera Sodium [Moles/Vol] 135 mmol/L Critically low 136-145 Th [facility] Comment on above: Performed By: #### HARI OLSONRO #### [facility] [address] [address] [address] Hardeep Rivera Urea nitrogen [Mass/Vol] 24.0 mg/dL Critically high 7.0-18.0 [facility] Comment on above: Performed By: #### HARI OLSONRO #### [facility] [address] [place] [address] Dr. Hardeep Rivera Urea nitrogen/Creatinine [Mass ratio] 14.6 mg/mg Normal [facility] Comment on above: Performed By: #### HARI OLSONRO #### [facility] [address] [place] [address] Dr. Hardeep Rivera [facility] Tacrolimus (Bld) [Mass/Vol] 12.4 ng/mL Normal 5.0-20.[address] [facility] Comment on above: Order Comment: [...] Test performed by chemiluminescent immunoassay using [employer]. Performed By: #### 1 1253-2 ####[facility] LABCLIA [id number] [address] OF [place] MG MAMM SCREEN 3D TRISHA CADon 05-28-2022 MG MAMM SCREEN 3D TRISHA CAD Patient: SYLVIA HANNA. Exam Date: 05/28/2022 : 1945 Gender:F Ordering : DR TAO DAVIS . Admission #: [id number] Family : Order #: [id number] CLICK HERE TO VIEW EXAM RADIOLOGY REPORT [...] Treatments None Family Cancers None LOCATION: [facility] BREAST COMPOSITION: Heterogeneously dense,which may obscure [...] Ibrahim MD on 05/28/2022 at 10:20 Normal [facility] 05-08-2022 [facility] Telephone (CARD [facility]ACC) -- SYLVIA HANNA ([id number]) 1945 F Date Time Provider Department 05/08/22 LOIDA MATHIAS [facility]ACC During your visit today, we recorded the following information about you: Linden Weems 05/08/2022 11:50 AM Signed Patient had labs drawn 05/07/22, uploaded to scanned docs. Linden Faustina Administrative Shoulder Joiner Loida Mathias APRN.CNP 05/08/2022 3:21 PM Signed [...] transplant. No Dr Ellerp: Rfl: TACROLIMUS/FK-506 BL [[id number]] Order #: [id number] FUTURE Prescriptions as of 05/08/2022 - tacrolimus [...] mg by mouth three times daily. - maxfaj-tzbpnbjb-bnunita (CREON) 24,000-76,000 -120,000 unit cpDR Take 3 [...] 05/19/2014 [facility] (more content not included)... Normal [facility] BOX TEST SENT OUTon 05-07-20 22 SENT TO REF LAB 05/07/2022 Normal [facility] Comment on above: Performed By: #### RANDALL OLSON #### [facility] [address] [address] [address] Hardeep Rivera CBC AUTO DIFFon 05-07-2022 BASO # 0.0 103/ul Normal 0.0-0.1 [facility] Comment on above: Performed By: #### RANDALL OLSON #### [facility] [address] [address] [address] Hardeep Rivera Basophils/100 WBC (Bld) 0.4 % Normal 0.2-2.0 [facility] Comment on above: Performed By: #### RANDALL OLSON #### [facility] [address] [place] [address] Dr. Hardeep Rivera EO # 0.1 103/ul Normal 0.0-0.[address] [facility] Comment on above: Performed By: #### RANDALL OLSON #### [facility] [address] [place] [address] Dr. Hardeep Rivera Eosinophils/100 WBC (Bld) 1.0 % Normal 0.9-7.[address] [facility] Comment on above: Performed By: #### RANDALL OLSON #### [facility] [address] [place] [address] Dr. Hardeep Rivera Erythrocyte distribution width (RBC) [Ratio] 12.6 % Normal 11.0-15.0 [facility] Comment on above: Performed By: #### RANDALL OLSON #### [facility] [address] [place] [address] Dr. Hardeep Rivera Hematocrit (Bld) [Volume fraction] 44.0 % Normal 36.0-48.[address] [facility] Comment on above: Performed By: #### RANDALL OLSON #### [facility] [address] [place] [address] Dr. Hardeep Rivera Hemoglobin (Bld) [Mass/Vol] 14.0 g/dL Normal 12.0-16.[address] [facility] Comment on above: Performed By: #### HARI OLSONRO #### [facility] [address] [place] [address] Dr. Hardeep Rivera IG # 0.02 10e3/ul Normal 0.00-0.[address] [facility] Comment on above: Performed By: #### HARI OLSONRO #### [facility] [address] [place] [address] Dr. Hardeep Rivera IG % 0.3 % Normal 0.0-0.[address] [facility] Comment on above: Performed By: #### AHRI OLSONRO #### [facility] [address] [place] [address] Dr. Hardeep Rivera LYMPH # 0.6 103/ul Critically low 1.2-3.8 [facility] Comment on above: Performed By: #### E RUR, UMICRO #### [facility] [address] [place] [address] Dr. Hardeep Rivera Lymphocytes/100 WBC (Bld) 8.2 % Critically low 20.5-60.0 [facility] Comment on above: Performed By: #### E RUR, UMICRO #### [facility] [address] [place] [address] Dr. Hardeep Rivera MANUAL DIFF REQ NO Normal [facility] Comment on above: Performed By: #### E RUTrish, UMICRO #### [facility] [address] [place] [address] Dr. Hardeep Rivera MCH (RBC) [Entitic mass] 29.4 pg Normal 26.7-34.0 [facility] Comment on above: Performed By: #### Deedee PINON UMICRO #### [facility] [address] [place] [address] Dr. Hardeep Rivera MCHC (RBC) [Mass/Vol] 31.8 g/dL Normal 29.9-35.2 [facility] Comment on above: Performed By: #### E KATHRIN, UMICRO #### [facility] [address] [place] [address] Dr. Hardeep Rivera MCV (RBC) [Entitic vol] 92.2 fL Normal 81.0-99.0 [facility] Comment on above: Performed By: #### Deedee PINON, UMICRO #### [facility] [address] [place] [address] Dr. Hardeep Rivera MONO # 0.8 103/ul Normal 0.3-0.8 [facility] Comment on above: Performed By: #### E RUR, UMICRO #### [facility] [address] [place] [address] Dr. Hardeep Rivera Monocytes/100 WBC (Bld) 9.6 % Normal 1.7-12.[address] [facility] Comment on above: Performed By: #### RANDALL OLSON #### [facility] [address] [place] [address] Dr. Hardeep Rivera NEUT # 6.3 103/ul Normal 1.4-6.5 [facility] Comment on above: Performed By: #### RANDALL OLSON #### [facility] [address] [place] [address] Dr. Hardeep Rivera Neutrophils/100 WBC (Bld) 80.5 % Critically high 43.0-75.[address] [facility] Comment on above: Performed By: #### RANDALL OLSON #### [facility] [address] [place] [address] Dr. Hardeep Rivera Platelet mean volume (Bld) [Entitic vol] 10.1 fL Normal 9.5-13.5 [facility] Comment on above: Performed By: #### RANDALL OLSON #### [facility] [address] [place] [address] Dr. Hardeep Rivera PLT 188 103/ul Normal 150-450 [facility] Comment on above: Performed By: #### RANDALL OLSON #### [facility] [address] [place] [address] Dr. Hardeep Rivera RBC 4.77 106/ul Normal 4.20-5.[address] [facility] Comment on above: Performed By: #### RANDALL OLSON #### [facility] [address] [place] [address] Dr. Hardeep Rivera WBC 7.8 103/ul Normal 4.0-11.[address] [facility] Comment on above: Performed By: #### RANDALL OLSON #### [facility] [address] [place] [address] Dr. Hardeep Rivera PROF CHEM 8 (BAS METB)on Anion gap [Moles/Vol] 11.9 mmol/L Normal [facility] Comment on above: Performed By: #### RANDALL OLSON #### [facility] [address] [place] [address] Dr. Hardeep Rivera Calcium [Mass/Vol] 8.7 mg/dL Normal 8.5-10.1 [facility] Comment on above: Performed By: #### E KATHRIN UMICRO #### [facility] [address] [place] [address] Dr. Hardeep Rivera Chloride [Moles/Vol] 99 mmol/L Normal 98-107 [facility] Comment on above: Performed By: #### E KATHRIN UMICRO #### [facility] [address] [place] [address] Dr. Hardeep Rivera CO2 [Moles/Vol] 27.1 mmol/L Normal 21.0-32.0 [facility] Comment on above: Performed By: #### Deedee PINON UMICRO #### [facility] [address] [place] [address] Dr. Hardeep Rivera Creatinine [Mass/Vol] 1.62 mg/dL Critically high 0.55-1.02 [facility] Comment on above: Performed By: #### Deedee PINON UMICRO #### [facility] [address] [place] [address] Dr. Hardeep Rivera EGFR-AF [place]IZ[place] 37 mL/min/1.73m2 Critically low >=60 [facility] Comment on above: Performed By: #### Deedee PINON UMICRO #### [facility] [address] [place] [address] Dr. Hardeep Rivera EGFR-NON AF CITIZEN OF [place] 31 mL/min/1.73m2 Critically low >=60 [facility] Comment on above: Performed By: #### Deedee PINON UMICRO #### [facility] [address] [place] [address] Dr. Hardeep Rivera Glucose [Mass/Vol] 73 mg/dL Critically low 74-106 [facility] Comment on above: Performed By: #### Deedee PINON UMICRO #### [facility] [address] [place] [address] Dr. Hardeep Rivera Potassium [Moles/Vol] 4.0 mmol/L Normal 3.5-5.1 [facility] Comment on above: Performed By: #### RANDALL OLSON #### [facility] [address] [place] [address] Dr. Hardeep Rivera Sodium [Moles/Vol] 134 mmol/L Critically low 136-145 [facility] Comment on above: Performed By: #### RANDALL OLSON #### [facility] [address] [place] [address] Dr. Hardeep Rivera Urea nitrogen [Mass/Vol] 33.0 mg/dL Critically high 7.0-18.0 [facility] Comment on above: Performed By: #### RANDALL OLSON #### [facility] [address] [place] [address] Dr. Hardeep Rivera Urea nitrogen/Creatinine [Mass ratio] 20.4 mg/mg Normal [facility] Comment on above: Performed By: #### RANDALL OLSON #### [facility] [address] [place] [address] Dr. Hardeep Rivera TACROLIMUS/FK-506 BLon 05-07 Tacrolimus (Bld) [Mass/Vol] 3.4 ng/mL Low 5.0-20.[address] [facility] Comment on above: Order Comment: [...] Test performed by chemiluminescent immunoassay using [employer]. Performed By: #### F K506 ####[facility] LABCLIA [id number] [address] [place] CNPMary Kay 05-03-2022 CNPN Telephone (CARD CHF ISACC) -- SYLVIA HANNA ([id number]) 1945 F Date Time Provider Department 05/03/22 SHO CROWLEY [facility] During your visit today, we recorded the following information about you: Sho Crowley APRN.SCOOP MACHINE OPERATOR 05/03/2022 2:58 PM Signed received phone call from [facility] Cardiology group requesting patient's Tacrolimus levels from 04/24. Faxed results to [phone]. Allergies As of Date: 05/03/2022 Noted Allergy [...] mg by mouth three times daily. - fdkecr-yrzolbhg-hltuypf (CREON) 24,000-76,000 -120,000 unit cpDR Take 3 [...] Status:Closed by SHO CROWLEY on 05/03/22 Normal [facility] BOX TEST SENT OUTon 04-24-20 SENT TO REF LAB 04/24/2022 Normal [facility] Comment on above: Performed By: #### RANDALL OLSON #### [facility] [address] [place] [address] Dr. Hardeep Clark 04-24-2022 ODETTEN Telephone (CARD CHF ISACC) -- SYLVIA HANNA ([id number]) 1945 F Date Time Provider Department 04/24/22 LOIDA MATHIAS [facility] During your visit today, we recorded the following information about you: Linden Weems 04/24/2022 1:31 PM Signed Patient left message that she had labs drawn today. Linden Weems Administrative Shoulder Joiner Post Heart Transplant J3-4 Loida Mathias APRN.CNP 04/26/2022 11:25 AM Signed Received FK level 4.5, drawn 04/24 My chart message sent to patient. Advised to remain on current dose and keep our office updated re: her plans for post transplant follow up. Loida Mathias APRN.SCOOP MACHINE OPERATOR April 26, 2022 11:24 AM Component [...] mg by mouth three times daily. - pezjfl-uhnrgcse-zihiipt (CREON) 24,000-76,000 -120,000 unit cpDR Take 3 [...] LINDEN WEEMS on 04/24/[address] [facility] TACROLIMUS/FK-506 BLon 04-24 Tacrolimus (Bld) [Mass/Vol] 4.5 ng/mL Low 5.0-20.[address] [facility] Comment on above: Order Comment: [...] situation. Test performed by chemiluminescent immunoassay using [employer]. Performed By: #### F K506 ####[facility] LABCLIA [id number] [place] [address] [place] FK506 (TACROLIMUS) WHOLE BLO ODon 04-11-2022 Tacrolimus (FK506), Blood 7.3 ng/mL Normal 2.0-20.0 [facility] Comment on above: Result Comment: Trou gh (immediately following transplant) 15.0 . Trough (steady state, 2 weeks or more after transplant): 3.0 - 8.0 . Performed by LC-MS/MS technology. Performed By: #### RANDALL OLSON #### [facility] [address] [place] [address] Dr. Hardeep Rivera BOX TEST SENT OUTon 04-09-20 22 SENT TO REF LAB 04/09/2022 Normal [facility] Comment on above: Performed By: #### RANDALL OLSON #### [facility] [address] [address] [address] Hardeep Rivera CBC AUTO DIFFon 04-09-2022 BASO # 0.0 103/ul Normal 0.0-0.1 [facility] Comment on above: Performed By: #### RANDALL OLSON #### [facility] [address] [place] [address] Dr. Hardeep Rivera Basophils/100 WBC (Bld) 0.1 % Critically low 0.2-2.0 [facility] Comment on above: Performed By: #### RANDALL OLSON #### [facility] [address] [place] [address] Dr. Hardeep Rivera EO # 0.1 103/ul Normal 0.0-0.7 [facility] Comment on above: Performed By: #### RANDALL OLSON #### [facility] [address] [place] [address] Dr. Hardeep Rivera Eosinophils/100 WBC (Bld) 1.2 % Normal 0.9-7.0 [facility] Comment on above: Performed By: #### RANDALL OLSON #### [facility] [address] [place] [address] Dr. Hardeep Rivera Erythrocyte distribution width (RBC) [Ratio] 12.6 % Normal 11.0-15.0 [facility] Comment on above: Performed By: #### RANDALL OLSON #### [facility] [address] [place] [address] Dr. Hardeep Rivera Hematocrit (Bld) [Volume fraction] 44.1 % Normal 36.0-48.[address] [facility] Comment on above: Performed By: #### RANDALL OLSON #### [facility] [address] [place] [address] Dr. Hardeep Rivera Hemoglobin (Bld) [Mass/Vol] 14.1 g/dL Normal 12.0-16.[address] [facility] Comment on above: Performed By: #### RANDALL OLSON #### [facility] [address] [place] [address] Dr. Hardeep Rivera IG # 0.02 10e3/ul Normal 0.00-0.[address] [facility] Comment on above: Performed By: #### RANDALL OLSON #### [facility] [address] [place] [address] Dr. Hardeep Rivera IG % 0.3 % Normal 0.0-0.5 [facility] Comment on above: Performed By: #### RANDALL OLSON #### [facility] [address] [place] [address] Dr. Hardeep Rivera LYMPH # 0.7 103/ul Critically low 1.2-3.8 [facility] Comment on above: Performed By: #### AKSHAT OLSONICRO #### [facility] [address] [place] [address] Dr. Hardeep Rivera Lymphocytes/100 WBC (Bld) 10.8 % Critically low 20.5-60.[address] [facility] Comment on above: Performed By: #### AKSHAT OLSONICRO #### [facility] [address] [place] [address] Dr. Hardeep Rivera MANUAL DIFF REQ NO Normal [facility] Comment on above: Performed By: #### AKSHAT OLSONICRO #### [facility] [address] [place] [address] Dr. Hardeep Rivera MCH (RBC) [Entitic mass] 29.3 pg Normal 26.7-34.[address] [facility] Comment on above: Performed By: #### AKSHAT OLSONICRO #### [facility] [address] [place] [address] Dr. Hardeep Rivera MCHC (RBC) [Mass/Vol] 32.0 g/dL Normal 29.9-35.[address] [facility] Comment on above: Performed By: #### Deedee PINON UMICRO #### [facility] [address] [place] [address] Dr. Hardeep Rivera MCV (RBC) [Entitic vol] 91.7 fL Normal 81.0-99.[address] [facility] Comment on above: Performed By: #### Deedee PINON UMICRO #### [facility] [address] [place] [address] Dr. Hardeep Rivera MONO # 0.7 103/ul Normal 0.3-0.[address] [facility] Comment on above: Performed By: #### Deedee PINON UMICRO #### [facility] [address] [place] [address] Dr. Hardeep Rivera Monocytes/100 WBC (Bld) 10.8 % Normal 1.7-12.[address] [facility] Comment on above: Performed By: #### AKSHAT OLSONICRO #### [facility] [address] [place] [address] Dr. Hardeep Rivera NEUT # 5.2 103/ul Normal 1.4-6.5 [facility] Comment on above: Performed By: #### Deedee PINON UMICRO #### [facility] [address] [place] [address] Dr. Hardeep Rivera Neutrophils/100 WBC (Bld) 76.8 % Critically high 43.0-75.0 [facility] Comment on above: Performed By: #### Deedee PINON UMICRO #### [facility] [address] [place] [address] Dr. Hardeep Rivera Platelet mean volume (Bld) [Entitic vol] 9.8 fL Normal 9.5-13.5 [facility] Comment on above: Performed By: #### Deedee PINON UMICRO #### [facility] [address] [place] [address] Dr. Hardeep Rivera PLT 200 103/ul Normal 150-450 [facility] Comment on above: Performed By: #### HARI OLSONRO #### [facility] [address] [place] [address] Dr. Hardeep Rivera RBC 4.81 106/ul Normal 4.20-5.40 [facility] Comment on above: Performed By: #### HARI OLSONRO #### [facility] [address] [place] [address] Dr. Hardeep Rivera WBC 6.7 103/ul Normal 4.0-11.[address] [facility] Comment on above: Performed By: #### Deedee PINON UMICRO #### [facility] [address] [place] [address] Dr. Hardeep Rivera PROF CHEM 8 (BAS METB)on Anion gap [Moles/Vol] 9.1 mmol/L Normal [facility] Comment on above: Performed By: #### Deedee PINON UMICRO #### [facility] [address] [place] [address] Dr. Hardeep Rivera Calcium [Mass/Vol] 8.3 mg/dL Critically low 8.5-10.1 [facility] Comment on above: Performed By: #### AKSHAT OLSONICRO #### [facility] [address] [place] [address] Dr. Hardeep Rivera Chloride [Moles/Vol] 100 mmol/L Normal 98-107 [facility] Comment on above: Performed By: #### Deedee PINON UMICRO #### [facility] [address] [place] [address] Dr. Hardeep Rivera CO2 [Moles/Vol] 28.1 mmol/L Normal 21.0-32.0 [facility] Comment on above: Performed By: #### Deedee PINON UMICRO #### [facility] [address] [place] [address] Dr. Hardeep Rivera Creatinine [Mass/Vol] 1.54 mg/dL Critically high 0.55-1.02 [facility] Comment on above: Performed By: #### Deedee PINON UMICRO #### [facility] [address] [place] [address] Dr. Hardeep Rivera EGFR-AF [place] 40 mL/min/1.73m2 Critically low >=60 [facility] Comment on above: Performed By: #### Deedee PINON UMICRO #### [facility] [address] [place] [address] Dr. Hardeep Rivera EGFR-NON AF [place] 33 mL/min/1.73m2 Critically low >=60 [facility] Comment on above: Performed By: #### Deedee PINON, UMICRO #### [facility] [address] [place] [address] Dr. Hardeep Rivera Glucose [Mass/Vol] 122 mg/dL Critically high 74-106 [facility] Comment on above: Performed By: #### Deedee PINON, UMICRO #### [facility] [address] [place] [address] Dr. Hardeep Rivera Potassium [Moles/Vol] 4.2 mmol/L Normal 3.5-5.1 [facility] Comment on above: Performed By: #### E RUR, UMICRO #### [facility] [address] [address] [address] Hardeep Rivera Sodium [Moles/Vol] 133 mmol/L Critically low 136-145 [facility] Comment on above: Performed By: #### E COLLINSR, UMICRO #### [facility] [address] [place] [address] Dr. Hardeep Rivera Urea nitrogen [Mass/Vol] 28.0 mg/dL Critically high 7.0-18.0 [facility] Comment on above: Performed By: #### E KATHRIN UMICRO #### [facility] [address] [address] [address] Hardeep Rivera Urea nitrogen/Creatinine [Mass ratio] 18.2 mg/mg Normal [facility] Comment on above: Performed By: #### E HARI PINONRO #### [facility] [address] [place] [address] Dr. Hardeep Rivera TACROLIMUS/FK-506 BLon 04-09 Tacrolimus (Bld) [Mass/Vol] 9.9 ng/mL Normal 5.0-20.[address] [facility] Comment on above: Order Comment: [...] Test performed by chemiluminescent immunoassay using [employer]. Performed By: #### F K506 ####[facility] LABCLIA [id number] [address] [place] CNPMary Kay 10-10-2021 CNPN [facility] -- SYLVIA HANNA ([id number]) 1945 F Date Time Provider Department 10/10/21 LOIDA MATHIAS CARD [facility] During your visit today, we recorded the following information about you: Linden Weems 10/10/2021 11:57 AM Signed Patient had labs drawn today Linden Weems Administrative Shoulder Joiner Linden Weems 10/11/2021 10:57 AM Signed Labs uploaded to scanned docs. Linden Weems Administrative Shoulder Joiner Loida Mathias APRN.CNP 10/12/2021 12:28 PM Signed [...] Z94.1 heart replaced by transplant. No Dr ReddyDisp: Rfl: TACROLIMUS/FK-506 BL [[id number]] Order #: [id number] FUTURE Prescriptions as of 10/12/2021 - tacrolimus [...] mg by mouth three times daily. - rduiin-engofmjf-raoxeso (CREON) 24,000-76,000 -120,000 unit cpDR Take 3 [...] (more content not included)... Normal [facility] Tacrolimus / [id number] 10-10- 021 Tacrolimus / FK506 10.1 ng/mL Normal [...] Test performed by chemiluminescent immunoassay using [employer]. Performed By: #### F K506 ####[facility] [id number] [place], [place] [id number] Eduardo 09-13-2021 CNPBlake Telephone (CARD CHF ISACC) -- SYLVIA HANNA ([id number]) 1945 F Date Time Provider Department 09/13/21 ARELIS NEWSOME CARD [facility] ISACC During your visit today, we recorded the following information about you: Linden Faustina 09/13/2021 2:52 PM Signed S/w pt, due to transportation and financial constraints she is unable to come to [place] for appointments. Patient is working with her outpatient case manager to establish care with a local nurse first assist (had previously been followed by one in [place]).Dr Rice has agreed and plan going forward will be to do a phone visit with pt on 10/03 and she will follow up in the interim with her local Nutrition Aide. Sending pt mailers and lab order, she will get those done as soon as she can. Linden Faustina Administrative Shoulder Joiner Allergies As of Date: 09/13/2021 Noted Allergy [...] mg by mouth three times daily. - fcbofn-rrlqzvip-bjiezch (CREON) 24,000-76,000 -120,000 unit cpDR Take 3 [...] by LINDEN WEEMS on 09/13/21 [facility] OBSOLETEon 09-12-2021 OBSOLETE Refill (CARD CHF ISACC ) -- SYLVIA HANNA ([id number]) 1945 F Date Time Provider Department 09/12/21 SANDRITA GUERRERO CARD CHF ISACC During your visit today, [...] mg by mouth three times daily. - ejnibl-emwwsiqr-msrwlsm (CREON) 24,000-76,000 -120,000 unit cpDR Take 3 [...] 09/02/2019 DREW (acute kidney injury) ([facility]) [N17.9] 12/03/2014 Anxiety disorder [F41.9] 07/05/2015 [...] SANDRITA GUERRERO on 09/12/[address] [facility] Vital Signs Date Time Vital Sign Value Performing Clinician Dami charles 04-08-2023 06:45-0400 Diastolic blood pressure 76 mm[Hg] Richard Roby [facility] 04-08-2023 06:45-0400 Heart rate 59 /min Richard Roby [facility] 04-08-2023 06:45-0400 Hourly Rounding Richard Roby [facility] 04-08-2023 06:45-0400 Mean [...] [facility] 04-08-2023 04:39-0400 Hourly Rounding Richard Roby [facility] 04-08-2023 04:39-0400 Mean [...] Roby [facility] 04-07-2023 21:19-0400 Body temperature 98.06 [degF] Richard Roby [facility] 04-07-2023 21:19-0400 Heart rate 65 /min Richard Ca [facility] 04-07-2023 21:19-0400 Respiratory rate 19 /min Richard Ca [facility] Encounters Encounter Date Encounter Type Care Provider Facility Start: 12-28-2024 End: 12-28-2024 Refill Loida Mathias APRN.CNP Work Phone: [facility] Comment on above: Refill Request Start: 10-09-2024 End: 10-09-2024 ambulatory González Shanks Facility:[facility] Start: 10-09-2024 End: 10-09-2024 Patient encounter procedure González Shanks [facility] Start: 09-14-2024 End: 09-14-2024 ambulatory [place] Start: 07-01-2024 End: 07-01-2024 ambulatory [place] Start: 06-18-2024 End: 06-18-2024 ambulatory NON STAFF [facility] Work Phone: Start: 06-18-2024 End: 06-18-2024 Departed Referred [facility] Start: 02-03-2024 End: 02-03-2024 ambulatory [place] Start: 11-12-2023 End: 11-12-2023 ambulatory [place] Start: 04-07-2023 End: 04-08-2023 Emergency department patient visit Richard GoodmanLaura Ca [facility] Start: 03-05-2023 [...] ROGERS Facility:[facility] Start: 09-08-2022 Refill Sandrita Guerrero APRN.SCOOP MACHINE OPERATOR Work Phone: Cardiology Comment on above: Refill Request Start: 08-04-2022 End: 08-04-2022 ambulatory NANCY REYES . Facility:[facility] Start: 08-02-2022 Telephone encounter Loida Mathias APRN.SCOOP MACHINE OPERATOR Work Phone: Cardiology Comment on above: Heart Transplant Fol low Up (Labs/) Start: 08-02-2022 End: 08-03-[address] TAO DAVIS . Facility:[facility] Start: 07-27-[address] TAO DAVIS . Facili ty:[facility] Start: 07-16-2022 End: 07-16-2022 Patient encounter procedure Eddie VERAS [facility] Start: 07-05-2022 Telephone encounter Sho Crowley APRN.SCOOP MACHINE OPERATOR Work Phone: Cardiology Comment on above: Heart Transplant Fol low Up; Lab Meeting Start: 07-03-2022 Telephone encounter Soy Mccann RN [facility] Comment on above: Heart Transplant Fol low Up (labs) Start: 07-03-2022 End: 07-04-[address] TAO DAVIS . Facility:[facility] Start: 05-28-2022 End: 05-29-[address] TAO DAVIS . Facility:[facility] Start: 05-08-2022 Telephone encounter Loida Mathias APRN.SCOOP MACHINE OPERATOR Work Phone: Cardiology Comment on above: Heart Transplant Fol low Up (labs) Start: 05-07-2022 End: 05-08-[address] TAO DAVIS . Facility:[facility] Start: 04-24-2022 Telephone encounter Loida Mathias APRN.SCOOP MACHINE OPERATOR Work Phone: Cardiology Comment on above: Heart Transplant Fol low Up Start: 04-24-2022 End: 04-25-[address] TAO DAVIS . Facility:[facility] Start: 04-20-[address] TAO DAVIS . Facili ty:[facility] Start: 04-11-2022 ambulatory Loida fontaine APRN.SCOOP MACHINE OPERATOR Work Phone: [facility] Start: 04-11-2022 Follow-up encounter Loida Mathias APRN.SCOOP MACHINE OPERATOR Work Phone: Cardiology Comment on above: Heart Transplant Fol low Up (Labs) Start: 04-09-2022 End: 04-10-[address] TAO DAVIS . Facility:[facility] Start: 04-06-2022 Orders Only Loida kellyno DUSTY.SCOOP MACHINE OPERATOR Work Phone: Cardiology Comment on above: Heart replaced by tr ansplant (HCC) (Primary Dx) Start: 04-04-2022 Refill Loida Kian fontaine DUSTY.SCOOP MACHINE OPERATOR Work Phone: Cardiology Comment on above: Rx Refills Start: 10-03-2021 End: 10-03-2021 ambulatory NICOLETTE RICE [facility] Procedures Date Procedure Procedure Detail Performing Clinician Start: 08-10-2013 H/O: heart recipient Heart transplan arianna Loida Bishopo DUSTY.SCOOP MACHINE OPERATOR Work Phone: Start: 03-19-2006 End: 08-12-2013 H/O: heart recipient Heart replaced by transplant Loida Mathias DECORATING MACHINE TENDER.SCOOP MACHINE OPERATOR Work Phone: H/O: heart recipient Heart transplanted ( [facility]) Loida Mathias DECORATING MACHINE TENDER.SCOOP MACHINE OPERATOR Work Phone: H/O: heart recipient Heart repla nitish by transplant ([facility]) Loida Mathias DECORATING MACHINE TENDER.SCOOP MACHINE OPERATOR Work Phone: H/O: heart recipient Heart transplanted ( HCC) Loida Mathias DECORATING MACHINE TENDER.SCOOP MACHINE OPERATOR Work Phone: H/O: heart recipient Heart transplanted ( [facility]) Loida Mathias DECORATING MACHINE TENDER.SCOOP MACHINE OPERATOR Work Phone: H/O: heart recipient Heart transplanted ( HCC) Sho Crowley DECORATING MACHINE TENDER.SCOOP MACHINE OPERATOR Work Phone: H/O: heart recipient Hx of heart transplant( Confirmed ) Morgan RITO Plan of Treatment Date Care Activity Detail Author Start: 02-09-2031 Urine microalbumin profile DTaP,Tdap,Td Vaccine (2 - Tdap) [facility] Start: 12-02-2024 Advance Directive Discussion Advance Directive Discussion [facility] Start: 08-02-2024 Covid-19 Vaccine ( season) Covid-19 Vaccine ( season) [facility] Start: 08-02-2024 Influenza vaccination Influenza Vacc ine (#1) [facility] Start: 09-02-2022 Diabetes Screening Diabetes Screenin g [facility] Start: 08-02-2022 Influenza vaccination INFLUENZA (#1) [facility] Start: 07-19-2022 End: 09-18-2022 Tacrolimus [Mass/volume] in Blood TACROLIMUS/FK-506 BL Lab Routine Heart transplanted ([facility]) Expected: 07/19/2022 (Approximate), Expires: 09/18/2022 [facility] Work Phone: Comment on above: Expected: 07/19/2022 (Approximate), Expires: 09/18/2022 Start: 05-21-2022 End: 07-21-2022 TACROLIMUS/FK-506 BL TACROLIMUS/FK-506 BL Lab Routine Heart transplanted (HCC) Expected: 05/21/2022, Expires: 07/21/2022 [facility] Work Phone: Comment on above: Expected: 05/21/2022 , Expires: 07/21/2022 Start: 04-23-2022 End: 06-23-2022 TACROLIMUS/FK-506 BL TACROLIMUS/FK-506 BL Lab Routine Heart transplanted ([facility]) Expected: 04/23/2022, Expires: 06/23/2022 [facility] Work Phone: Comment on above: Expected: 04/23/2022 , Expires: 06/23/2022 Start: 04-09-2022 End: 06-09-2022 CBC W Auto Differential panel - Blood CBC + DIFF Lab Routine Heart replaced by transplant ([facility]) Expected: 04/09/2022, Expires: 06/09/2022 [facility] Work Phone: Comment on above: Expected: 04/09/2022 , Expires: 06/09/2022 Start: 04-09-2022 End: 06-09-2022 Comprehensive metabolic 2000 panel - Serum or Plasma COMP METABOLIC PANEL Lab Routine Heart replaced by transplant ([facility]) Expected: 04/09/2022, Expires: 06/09/2022 [facility] Work Phone: Comment on above: Expected: 04/09/2022 , Expires: 06/09/2022 Start: 04-09-2022 End: 04-06-2023 HEART/LUNG REC POST TX DSA HEART/LUNG REC POST TX DSA ALLOGEN Routine Heart replaced by transplant ([facility]) Expected: 04/09/2022, Expires: 04/06/2023 [facility] Work Phone: Comment on above: Expected: 04/09/2022 , Expires: 04/06/2023 Start: 04-09-2022 End: 06-09-2022 LIPID PANEL BASIC LIPID PANEL BASIC Lab Routine Heart replaced by transplant ([facility]) Expected: 04/09/2022, Expires: 06/09/2022 [facility] Work Phone: Comment on above: Expected: 04/09/2022 , Expires: 06/09/2022 Start: 04-09-2022 End: 06-09-2022 Magnesium [Mass/volume] in Serum or Plasma MAGNESIUM BLD Lab Routine Heart replaced by transplant ([facility]) Expected: 04/09/2022, Expires: 06/09/2022 [facility] Work Phone: Comment on above: Expected: 04/09/2022 , Expires: 06/09/2022 Start: 04-09-2022 End: 06-09-2022 TACROLIMUS/FK-506 BL TACROLIMUS/FK-506 BL Lab Routine Heart replaced by transplant ([facility]) Expected: 04/09/2022, Expires: 06/09/2022 [facility] Work Phone: Comment on above: Expected: 04/09/2022 , Expires: 06/09/2022 Start: 04-09-2022 End: 06-09-2022 URINALYSIS, DIPSTICK ONLY URINALYSIS, DIPSTICK ONLY Lab Routine Heart replaced by transplant ([facility]) Expected: 04/09/2022, Expires: 06/09/2022 [facility] Work Phone: Comment on above: Expected: 04/09/2022 , Expires: 06/09/2022 Start: 12-02-2021 ADVANCE DIRECTIVE DISCUSSION ADVANCE DIRECTIVE DISCUSSION [facility] Start: 09-26-2021 COVID-19 VACCINE (3 - Pfizer risk 4-dose series) COVID-19 VACCINE (3 - Pfizer risk 4-dose series) [facility] Start: 09-26-2021 COVID-19 VACCINE (3 - Pfizer risk series) COVID-19 VACCINE (3 - Pfizer risk series) [facility] Start: 03-04-2020 Hepatitis B surface antibody level LDL CHOLESTEROL [facility] Start: 2019 RSV Vaccine (1 - 1-d ose 75+ series) RSV Vaccine (1 - 1-dose 75+ series) [facility] Start: 06-14-2015 Hemoglobin A1c/Hemoglobin.total in Blood HBA1C [facility] Start: 11-01-2013 PNEUMOCOCCAL: 65+ (3 - PCV) PNEUMOCOCCAL: 65+ (3 - PCV) [facility] Start: 01-26-2010 ADULT [facility]AR [facility] Start: 1994 SHINGRIX VACCINE (1 of 2) SHINGRIX VACCINE (1 of 2) [facility] Start: 1963 SHINGRIX VACCINE (1 of 2) SHINGRIX VACCINE (1 of 2) [facility] Start: 1963 Urine microalbumin profile DTAP,TDAP,TD (1 - Tdap) [facility] Start: 1962 ANNUAL PCP TEAM 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 ESTRELLA DISEASE VISIT ANNUAL PCP TEAM CHRONIC DISEASE VISIT [facility] Start: 1962 Anxiety Screening Anxiety Screening [facility] Start: 1962 BP CONTROLLED (<130/80) BP CONTROLLE D (<130/80) [facility] Start: 1962 Depression Screening Depression Scre ening [facility] Start: 1954 3 comp foot exam completed DIABETIC FOOT EXAM [facility] Start: 1954 Hepatitis B screening URINE ALBUMIN:CREATININE RATIO [facility] Start: 1954 Hepatitis C antibody , confirmatory test DILATED RETINAL EXAM [facility] Start: 1950 PNEUMOCOCCAL: 65+ (1 - PCV) PNEUMOCOCCAL: 65+ (1 - PCV) [facility] Immunizations Immunization Date Immunization Notes Care Provider Valente araujo 09-28-2023 influenza virus vaccine, unspecified formulation González Shanks [facility] 05-20-2023 pneumococcal 20-matthew nt conjugate vaccine PredictionIOedgar [employer] [facility] 07-14-2022 influenza virus vaccine, unspecified formulation RacquelInformousedgar [employer]ostepan [facility] 06-05-2022 SARS-CoV-2 mRNA (jurhkfyvdew-yfrc-btedb se) vaccine [employer] [facility] 08-29-2021 SARS-CoV-2 (COVID-19 ) mRNA BNT-162b2 vax [employer] [facility] 08-02-2021 SARS-CoV-2 (COVID-19 [...] influenza virus vaccine, whole virus Loida Iammarino DECORATING MACHINE TENDER.SCOOP MACHINE OPERATOR Work Phone: [facility] 09-15-2014 influenza, whole Morgan SALAM [facility] 11-01-2012 pneumococcal polysaccharide vaccine, 23 valent Loida Iammarino DECORATING MACHINE TENDER.SCOOP MACHINE OPERATOR Work Phone: [facility] 12-28-2009 novel bvlitlfam-[id number], all formulations Loida Iammarino DECORATING MACHINE TENDER.SCOOP MACHINE OPERATOR Work Phone: [facility] Work Phone: 08-19-2009 influenza virus vaccine, unspecified formulation Loida Iammarino DECORATING MACHINE TENDER.SCOOP MACHINE OPERATOR Work Phone: [facility] 09-01-2006 influenza virus vaccine, unspecified formulation Loida Iammarino DECORATING MACHINE TENDER.SCOOP MACHINE OPERATOR Work Phone: [facility] Work Phone: 09-01-2006 pneumococcal polysaccharide vaccine, 23 valent Loida Mathias DECORATING MACHINE TENDER.SCOOP MACHINE OPERATOR Work Phone: [facility] Work Phone: NEGATED: Highlighted row has not occurred!07-12-2022 influenza virus vaccine, unspecified formulation Eddie VERAS [facility] Payers Date Payer Category Payer Self-pay 2022 Medicare UHC MEDICARE UHC DUAL COMPLETE HMO SNP [id number] 2022-Present [phone] [address] [place] [address] Medicare [id number] 2022 Medicare UHC MEDICARE UHC DUAL COMPLETE HMO SNP [id number] 2022-Present [phone] [address] [place] [address] Medicare [id number] 2020 Unknown [id number] 1959 Medicaid [id number] 1959 Medicare [id number] 1959 Self-pay [id number] 1959 Unknown [id number] 1944 Unknown [id number] [id number] 1944 Unknown [id number] 2.16.840.1.191340.3.579.2.593 1944 Unknown [id number] 2.16.840.1.970095.3.579.2.593 1944 Unknown [id number] 2.16.840.1.646287.3.579.2.593 1944 Unknown [id number] 2.16.840.1.772823.3.579.2.593 1944 Unknown [id number] 2.16.840.1.886862.3.579.2.593 1944 Unknown [id number] 2.16.840.1.365440.3.579.2.593 1944 Unknown [id number] 2.16.840.1.221827.3.579.2.593 1944 Unknown [id number] 2.16.840.1.797849.3.579.2.593 1944 Unknown [id number] 2.16.840.1.645575.3.579.2.593 1944 Unknown [id number] 2.16.840.1.911044.3.579.2.593 1944 Unknown [id number] 2.16.840.1.944231.3.579.2.593 1944 Unknown [id number] 2.16.840.1.519375.3.579.2.593 1944 Unknown [id number] 2.16.840.1.872569.3.579.2.593 1944 Unknown [id number] 2.16.840.1.781090.3.579.2.593 1944 Unknown [id number] 2.16.840.1.779256.3.579.2.593 1944 Unknown [id number] 2.16.840.1.011871.3.579.2.593 1944 Unknown [id number] 2.16.840.1.024332.3.579.2.593 1944 Unknown [id number] 2.16.840.1.011165.3.579.2.727 Unknown [id number] 2.16.840.1.598686.3.579.2.593 Social History Date Type Detail Facility Start: 05-13-2019 Tobacco smoking stat us NHIS Ex-smoker [facility] Work Phone: History of tobacco use Cigarette Smoker C [facility] Work Phone: Start: 09-07-2019 Alcohol intake Current non-dr sound person of alcohol (finding) [facility] Start: 1945 Sex Assigned At Not on file C [facility] Start: 07-12-2022 Never smoked t obacco (finding) [facility] Never [facility] Start: 09-07-2019 End: 11-06-2020 Female [facility] History of tobacco use Current smoker [facility] Start: 05-13-2019 End: 11-06-2020 Cigarettes smoked current (pack per day) - Reported 0.3 [facility] Start: 05-13-2019 Tobacco use and exposure Smokeless tobacco non-user [facility] Start: 1945 Sex Assigned At Female F [facility] Functional Status Date Assessment Result Facility 04-07-2023 Functional Status N/A [facility] Clinical Notes 11-14-2017 to 09-14-2024 Note Date & Type Note Facility 09-14-2024 Note [place] [facility] - [facility] Subjective Sylvia Hanna is a 78 [...] Alcohol use: Not Currently Drug use: Never [facility] Visit of 10/30/2021: Sylvia is seen as [...] in 2007. She is followed by the [facility] cardiology service. She has had no [...] prior echocardiographic exam performed on 11/19/16. Similar (more content not included)... [facility] 07-01-2024 Note [place] [facility] - [facility] Subjective Sylvia Hanna is a 78 y.o. year old female patient being seen for follow up [facility] for syncope. Says she's been having dizzy [...] Alcohol use: Not Currently Drug use: Never [facility] Visit of 10/30/2021: Sylvia is seen as [...] in 2007. She is followed by the [facility] cardiology service. She has had no [...] There is no (more content not included)... [facility] 02-03-2024 Note [place] [facility] - [facility] Subjective Sylvia Hanna is a 78 y.o. year old female patient being seen for follow up [facility] She was seen as inpatient consult by [...] branch block Status post heart transplantation (CMS/HCC) DRWE (acute kidney injury) (CMS/HCC) Anemia Chronic diarrhea [...] in 2007. She is followed by the [facility] cardiology service. She has had no [...] the prior echocardiographi (more content not included)... [facility] 11-12-2023 Note [place] [facility] - [facility] Subjective Sylvia Hanna is a 77 [...] in 2007. She is followed by the [facility] cardiology service. She has had no [...] Stress Testing (1 (more content not included)... [facility] 10-28-2023 Note [facility] 04-08-2023 Hospital Discharge instructions Patient Education [...] ?Adrenal gland problems. ?Metabolic conditions, such as [place]'s disease or syndrome of inappropriate antidiuresis (SIAD). [...] improvement. Follow these instructions at home: Take kqxy-eol-mgjbmxf and prescription medicines only as told by [...] provider. Document Revised: 05/29/2022 Document Reviewed: 05/29/2022 [employer] Patient Education 2022 [employer]. 04/08/2023 08:56:02 Nonspecific Chest Pain, Adult Nonspecific [...] Follow these instructions at home: Medicines Take arlu-rfs-nflrysw and prescription medicines only as told by [...] provider. Document Revised: 02/01/2022 Document Reviewed: 02/01/2022 [employer] Patient Education 2022 [employer]. Follow Up Care 04/07/2023 21:19:10 With:SCOT ROGERS Address: [facility] [facility] [address] [phone] Business (1) When:Within 3 Day(s) [facility] [...] uploaded to scanned docs. [facility] Miscellaneous Notes* Telephone Encounter - [...] another team. Sho Crowley APRN, CNP Pager: [phone] July 05, 2022 10:42 AM Post Heart Transplant Nurse Practitioner documented [facility] Miscellaneous Notes* Telephone Encounter - Linden Weems - 07/03/2022 12:59 PM EDT Patient had labs drawn 07/03/22, uploaded to scanned docs. [facility] Miscellaneous Notes* Addendum Note - Loida Mathias APRN.CNP - 05/08/2022 3:26 PM EDT Addended by: LOIDA MATHAIS on: 05/08/2022 03:26 PM Modules accepted: Orders [...] uploaded to scanned docs. Linden Weems Administrative Shoulder Joiner documented in this [facility]05-[facility]22 Miscellaneous Notes* Telephone Encounter - Linden Weems - 04/24/2022 1:31 PM EDT Patient left message that she had labs drawn today. Linden Ortizsherita Administrative Shoulder Joiner Post Heart Transplant J3-4 documented in this [facility]05-11-2022 NoteHNO ID: [id number] Author: Loida Mathias APRN.CNP Service: ? Author [...] reports she can no longer travel to [place]. She does not have a ride, she has no family or friends to lean on. She has made an appt with a local Nutrition Aide. She will ask him if there are any transplant doctors or centers near her and potentially need to transfer her care. She will keep us updated. Loida Mathias APRN.CNP April 12, 2022 2:25 [facility]05-11-2022 History of Present illness Narrative* Loida Mathias [...] reports she can no longer travel to [place]. Shedoes not have a ride, she has no family or friends to lean on. She has made an appt with a local Nutrition Aide. She will ask him if there are any transplant doctors or centers near her and potentiallyneed to transfer her care. She will keep us updated. Loida Mathias APRN.CNP April 12, 2022 2:25 PM documented in this encounterSouth[facility]11-08-2021 NoteHNO ID: [id number] Author: Loida Mathias APRN.CNP Service: ? Author [...] Loida Mathias APRN.CNP October 09, 2021 4:10 [facility]11-02-2021 NoteHNO ID: [id number] Author: Nicolette Rice MD Service: ? Author Type: Physician Type: Progress Notes Filed: 10/03/2021 4:12 PM Note Text: Heart, Vascular AND Thoracic [facility] Department of Cardiovascular Medicine TELEPHONE VISIT PROGRESS [...] in ~6 months. Will see a local nurse first assist at the end of the month. Data Reviewed: No new labs Assessment: She is doing well clinically and her BP is controlled. ? Plan: 1. She was instructed to continue the current medical program. 2. RTC per post-transplant protocol. Total Time Spent: 21-30 minutes Nicolette Rice [facility]12-14-2017 History of Past illness Narrative* [...] of this encounter (statuses as of 04/05/2022) [facility] of Past illness Narrative* [...] of this encounter (statuses as of 04/06/2022) [facility] of Past illness Narrative* [...] of this encounter (statuses as of 04/12/2022) [facility] of Past illness Narrative* [...] of this encounter (statuses as of 04/24/2022) [facility] of Past illness Narrative* [...] of this encounter (statuses as of 05/08/2022) [facility] of Past illness Narrative* [...] of this encounter (statuses as of 07/03/2022) [facility] of [facility] illness Narrative* [...] of this encounter (statuses as of 07/05/2022) [facility] of Past illness Narrative* [...] of this encounter (statuses as of 08/02/2022) [facility] of Past illness Narrative* [...] of this encounter (statuses as of 09/11/2022) [facility] note Future Appointments Appointment Date:08/01/2022 01:50:00 PM Scheduled Provider: Location:[facility] Appointment Type:Surgery FT Diagnostic Tests Pending * CMV Antibody IgM 07/16/22 Future Scheduled Tests Laboratory* Fecal WBC Lactoferrin 07/12/22 * Giardia lamblia, Direct Detection EIA 07/12/22 * O & P Exam, Routine 07/12/22 * Clostridium difficile by PCR 07/12/22 * Enteric Panel by PCR 07/12/22 [facility] [place] [facility]* Diagnosis Heart transplanted (HCC) Heart replaced by transplant documented in this encounter [facility] note* Diagnosis Heart replaced by transplant (HCC)- Primary Heart replaced by transplant documented in this encounter [facility] note* Diagnosis Heart replaced by transplant (HCC)- Primary Heart replaced by transplant Heart transplanted (HCC) Heart replaced by transplant documented in this encounter [facility] note* Diagnosis Heart transplanted (HCC) Heart replaced by transplant documented in this encounter [facility] note* Diagnosis Heart transplanted (HCC) Heart replaced by transplant documented in this encounter [facility] noteNo assessment information availableL[facility] Work Phone: Hospital course Narrative No data available for this section [facility] No data available for this section [facility] No data available for this section [facility] Advance Directives Documents on File Type Date Recorded Patient Digital Strategy Manager Expl anation Advance Directive(s) 11/14/2017 5:44 AM Advance Directive(s) 01/02/2012 12:00 AM Advance Directive(s) 01/17/2007 12:00 AM Documents on File Type Date Recorded Patient Digital Strategy Manager Expl anation Advance Directive(s) 01/02/2012 Advance Directive(s) 01/17/2007 Summary Purpose Family History No Family History Records FoundNo Family History Records FoundNo Family History Records FoundNo Family History Records Found No data available for this section No Family History Records Found Additional Source Comments Source Comments (unrecognize d section and content) In the event this informatio n is protected by the Federal Confidentiality of Alcohol and Drug Abuse Patient Records regulations: The Federal rules restrict any use of the information to criminally investigate or prosecute any alcohol or drug abuse patient.[facility] CenterIn the event this information is protected by the Federal Confidentiality of Alcohol and Drug Abuse Patient Records regulations: The Federal rules restrict any use of the information to criminally investigate or prosecute any alcohol or drug abuse patient.[facility] CenterIn the event this information is protected by the Federal Confidentiality of Alcohol and Drug Abuse Patient Records regulations: The Federal rules restrict any use of the information to criminally investigate or prosecute any alcohol or drug abuse patient.[facility] CenterIn the event this information is protected by the Federal Confidentiality of Alcohol and Drug Abuse Patient Records regulations: The Federal rules restrict any use of the information to criminally investigate or prosecute any alcohol or drug abuse patient.[facility] CenterIn the event this information is protected by the Federal Confidentiality of Alcohol and Drug Abuse Patient Records regulations: The Federal rules restrict any use of the information to criminally investigate or prosecute any alcohol or drug abuse patient.[facility] CenterIn the event this information is protected by the Federal Confidentiality of Alcohol and Drug Abuse Patient Records regulations: The Federal rules restrict any use of the information to criminally investigate or prosecute any alcohol or drug abuse patient.[facility] CenterIn the event this information is protected by the Federal Confidentiality of Alcohol and Drug Abuse Patient Records regulations: The Federal rules restrict any use of the information to criminally investigate or prosecute any alcohol or drug abuse patient.[facility] CenterIn the event this information is protected by the Federal Confidentiality of Alcohol and Drug Abuse Patient Records regulations: The Federal rules restrict any use of the information to criminally investigate or prosecute any alcohol or drug abuse patient.[facility] CenterIn the event this information is protected by the Federal Confidentiality of Alcohol and Drug Abuse Patient Records regulations: The Federal rules restrict any use of the information to criminally investigate or prosecute any alcohol or drug abuse patient.[facility] CenterIn the event this information is protected by the Federal Confidentiality of Alcohol and Drug Abuse Patient Records regulations: The Federal rules restrict any use of the information to criminally investigate or prosecute any alcohol or drug abuse patient.[facility] Reason for Visit (unrecogniz ed section and content) Reason Comments Rx Refills Reason Comments Heart Transplant Follow Up Labs Reason Comments Heart Transplant Follow Up Reason Comments Heart Transplant Follow Up labs Reason Comments Heart Transplant Follow Up Lab Meeting Reason Comments Refill Request Care Teams (unrecognized sec tion and content) Brush Hand Relationship Specialty Start Date End Date Tao Davis MD [address] [phone] PCP - General Family Practice 05/13/19 Brush Hand Relationship Specialty Start Date End Date Tao Davis MD [address] [place] [address] PCP - General Family Practice 05/13/19 Brush Hand Relationship Specialty Start Date End Date Tao Davis MD [address] [place] [address] PCP - General Family Practice 05/13/19 Brush Hand Relationship Specialty Start Date End Date Tao Davis MD [address] [place] [address] PCP - General Family Practice 05/13/19 Brush Hand Relationship Specialty Start Date End Date Tao Davis MD [address] [place] [address] PCP - General Family Practice 05/13/19 Brush Hand Relationship Specialty Start Date End Date Tao Davis MD [address] [place] [address] PCP - General Family Medicine 05/13/19 Team Status: Inactive Member Role Status Dates NON STAFF Attending Provider Active Start: 2023 End: June 18, 2024 Brush Hand Relationship Specialty Start Date End Date Tao Davis MD PCP - General Family Medicine 05/13/19 INFORMATION SOURCE (unrecogn ized section and content) DATE CREATED AUTHOR 09/01/[address] [facility] DATE CREATED AUTHOR AUTHOR'S ORGANIZ ATION 03/09/[address] [facility] DATE CREATED AUTHOR AUTHOR'S ORGANIZ ATION 07/12/2024 [facility] DATE CREATED AUTHOR AUTHOR'S ORGANIZ ATION 10/03/2024 [facility] DATE CREATED AUTHOR AUTHOR'S ORGANIZ ATION 10/11/2024 [facility] Goals (unrecognized section and content) Goals [...] BE BASED ON THE PRIMARY CLINICAL RECORDS. [facility]. provides no warranty or guarantee of the accuracy or completeness of information in this document.
[2025-01-05 07:10] LABS: Tacrolimus (FK506), Blood 7.3 ng/mL (2.0-20.0)
== END 2025-01-01 11:07 | disposition home or self-care (01) ==
LOC: LAB 11:07
PROVIDERS: PCP Family Medicine; Visit Provider Internal Medicine Interventional Cardiology
DX: Z94.1 Heart transplant status (principal)
CPT/HCPCS: 36415; 80197

== ENCOUNTER 2025-01-04 21:16 | Inpatient (IN) | payer MEDICARE, SELFPAY ==
[2025-01-04 21:23] VITALS: BP 128/87; PULSE 90; TEMP 36.4; O2SAT 99; BMI 18.3
--- NOTE | 2025-01-04 21:23 | ECG_ITS ---
[facility] Test Date: 2025-01-04 Pat Name: SYLVIA HANNA Department: Room: - Gender: Female Gang Sawyer: : 1945 Requested By: TAO ROONEY Order Number: [id number] Reading MD: URIEL VALERA Measurements Intervals [place] Rate: 89 P: -30 PA: 162 QRS: 95 QRSD: 104 T: 56 QT: 406 QTc: 453 Interpretive Statements 1100 Sinus rhythm 2440 Incomplete right bundle branch block 4068 Nonspecific Twave abnormality 7102 Moderate right axis deviation 8304 Long QTc interval 9150 abnormal ECG Electronically Signed On 01-05-2025 6:57:06 EST by URIEL VALERA
[2025-01-04] MEDS: 0.9 % SODIUM CHLORIDE 500 ML IV (21:25)
--- NOTE | 2025-01-04 21:26 | XR_ITS ---
The [address] [address] Patient Name: SYLVIA HANNA MRN: [id number] date: 1945 Sex: F Assigned Patient Location: ED.MAIN Current Patient Location: ER Accession/Order Number: [id number] Exam Date: 01/04/2025 21:55 Report Date: 01/04/2025 22:16 At the request of: HARPER MARKER Procedure: XR chest 1V EXAM: XR chest 1V HISTORY: weakness COMPARISON: 08/02/2024. TECHNIQUE: Chest portable upright one view FINDINGS: Lungs are mildly hyperinflated. Patchy opacity in the lingula and left lower lobe. Right lung is clear. No effusion. No pneumothorax. There are median sternotomy changes and surgical clips in the mediastinum. Heart size within normal limits. Pulmonary vasculature is normal. There are cholecystomy clips. XR/XR chest 1V IMPRESSION: 1. Small vague area of patchy airspace disease reflecting atelectasis or pneumonitis in the lingula/left lower lobe. Correlate with symptoms and recommend short interval follow-up to resolution. 2. Clear right lung. 3. Median sternotomy with surgical clips in the mediastinum, normal heart size. Electronically authenticated by: PAMELA MEDINA Date: 01/04/2025 22:16
--- NOTE | 2025-01-04 21:26 | ED.GENADUL1 ---
HPI HPI - General Adult General Chief complaint: Weakness Stated complaint: short of breath Time Seen by Provider: 01/04/25 21:23 History of Present Illness HPI narrative: This 79-year-old female who is a heart transplant patient from [facility] 19 years ago presents for evaluation of nausea vomiting diarrhea and generalized weakness. She states she has been having some nausea and vomiting since last week and cannot keep anything down. She states she is concerned because she has been vomiting up her medications. She denies any specific abdominal pain. She states she has felt very dizzy for the past several days like she is going to pass out when she is up and walking around. She feels dehydrated. She has not passed out but has had to sit down several times due to dizziness. She does not think she has had a fever. She has some pain with urination. She denies any other abdominal pain or flank pain. Related Data Home Medications ?Medication ?Instructions ?Recorded ?Confirmed aspirin 81 mg tablet,delayed 81 mg PO DAILY 06/06/23 06/17/24 release ekpmxm-cxlfyksy-gendafq 3 cap PO TID 06/06/23 06/17/24 36,000-114,000-180,000 unit capsule,delay rel (Creon) omega-3 fatty acids-fish oil 360 1 cap PO DAILY 06/06/23 06/17/24 mg-1,200 mg capsule (Fish Oil) pramipexole 0.5 mg tablet 0.5 mg PO DAILY 06/06/23 06/17/24 simvastatin 20 mg tablet 20 mg PO DAILY 06/06/23 06/17/24 tacrolimus 0.5 mg capsule, 1 mg PO BID 06/06/23 06/18/24 immediate-release levothyroxine 112 mcg tablet 112 mcg PO QDAY 06/07/23 06/17/24 mycophenolate mofetil 250 mg 500 mg PO BID 12/31/23 06/17/24 capsule citalopram 20 mg tablet 20 mg PO DAILY 06/17/24 06/17/24 [id number]-oekczviv-mlorniy See Rx Instructions PO TID 06/18/24 06/18/24 36,000-114,000-180,000 unit capsule,delay rel (Creon) Previous Rx's ?Medication ?Instructions ?Recorded carvedilol 12.5 mg tablet 12.5 mg PO BID #60 tabs 01/01/24 magnesium oxide 400 mg (241.3 mg 400 mg PO BID #60 tabs 01/01/24 magnesium) tablet cefdinir 300 mg capsule 600 mg (2 x 300 mg) PO DAILY #20 06/18/24 caps Allergies Allergy/AdvReac Type Severity Reaction Status Date / Time promethazine (From Phenergan) AdvReac Severe Confusion Verified 01/04/25 21:27 ciprofloxacin (From Cipro) AdvReac Mild HIVES Verified 01/04/25 21:27 Opioid HPI Opioid Management Most Recent Opioid Data: Last Pain Scale 5 06/18/24 01:27 06/18/24 Last Pain Intensity 2 12/31/23 13:45 12/31/23 Last ORT Total Score 1 06/18/24 00:23 06/18/24 Last ORT Risk Category Low Risk 06/18/24 00:23 06/18/24 Review of Systems ROS Status of ROS 10 or more systems reviewed and unremarkable except as noted in history and below [facility] Medical History (Updated 01/04/25 @ 23:39 by Elisa Lopez MD) Head injury ?S09.90XA - Unspecified injury of head, initial encounter (ICD-10) Syncope ?R55 - Syncope and collapse (ICD-10) Depression ?F32.A - Depression, unspecified (ICD-10) Syncope ?R55 - Syncope and collapse (ICD-10) Acute kidney injury ?N17.9 - Acute kidney failure, unspecified (ICD-10) Gastroenteritis ?K52.9 - Noninfective gastroenteritis and colitis, unspecified (ICD-10) Heart transplant recipient ?Z94.1 - Heart transplant status (ICD-10) Heart transplant recipient ?Z94.1 - Heart transplant status (ICD-10) Surgical History (Updated 06/18/24 @ 00:55 by Toña Márquez RN) History of heart transplant ?Z94.1 - Heart transplant status (ICD-10) History of cholecystectomy ?Z90.49 - Acquired absence of other specified parts of digestive tract (ICD-10) History of ureteroscopy ?Z98.890 - Other specified postprocedural states (ICD-10) Social History (Updated 06/18/24 @ 00:33 by Toña Márquez RN) Within the past year, how often did you have a drink containing alcohol: never Score interpretation: A score less than 3 is consistent with normal alcohol consumption. Smoking status: Never smoker Non-prescribed substance use: denies use Highest level of school completed/degree received: high school graduate Are you now , , , , never or living with a partner: In a typical week, how many times do you talk on the telephone with family, friends, or neighbors: 3 or more times per week How often do you get together with friends or relatives: 3 or more times per week How often do you attend yazdanism or muslim services: 4 or more times per year Do you belong to any clubs or organizations such as yazdanism groups unions, fraeGym or athletic groups, or school groups: no Total score: 3 Score interpretation: A score of greater than or equal to 2 indicates the lowest level of social isolation. Little interest or pleasure in doing things: not at all Feeling down, depressed, or hopeless: not at all Feel stressed/tense/nervous/anxious/difficulty sleeping: not at all Life stressors: recent of family or friend Do you think of yourself as: straight/heterosexual Gender Identity: female Exam Narrative Exam Narrative: Vital signs and Nursing Notes reviewed: General: Awake, alert, oriented, thin elderly female, no respiratory distress, GCS 15 HEENT: Normocephalic atraumatic, mucous membranes are slightly dry, no oral lesions noted-chronic changes to the left eye are noted, patient states that she had an injury to the left eye in the past Neck: Supple, no meningeal signs, no anterior or posterior cervical lymphadenopathy Chest: Lungs are clear to auscultation with good air entry, there is no wheezing rhonchi or rales appreciated no accessory muscle use, patient is speaking in complete sentences-no chest wall tenderness to palpation CVS: Regular rate and rhythm S1-S2, no murmurs rubs or gallops, pulses are brisk and equal bilaterally ABD: Soft, nondistended, nontender, no rebound guarding or rigidity, bowel sounds are normal, no pulsatile masses appreciated Extremities: Moving all extremities, no lower extremity tenderness or swelling noted, negative Homans' sign, pulses are brisk and equal bilaterally Skin: Normal in appearance without rash,pallor, petechiae or purpura Neuro: No focal deficits, speech is clear, cognition is intact, no weakness or numbness noted Constitutional Vital Signs, click to edit/add: Last Vital Signs Temp 97.5 F L 01/04/25 21:23 Pulse 90 01/04/25 21:23 Resp 18 01/04/25 21:23 BP 128/87 01/04/25 21:23 Pulse Ox 96 01/04/25 22:05 O2 Del Method Room Air 01/04/25 22:05 Course Vital Signs Vital signs: Vital Signs Temperature 97.5 F L 01/04/25 21:23 Pulse Rate 90 01/04/25 21:23 Respiratory Rate 18 01/04/25 21:23 Blood Pressure 128/87 01/04/25 21:23 Pulse Oximetry 99 01/04/25 21:23 Oxygen Delivery Method Room Air 01/04/25 21:23 Temperature 97.5 F L 01/04/25 21:23 Pulse Rate 90 01/04/25 21:23 Respiratory Rate 18 01/04/25 21:23 Blood Pressure 128/87 01/04/25 21:23 Pulse Oximetry 96 01/04/25 22:05 Oxygen Delivery Method Room Air 01/04/25 22:05 Medical Decision Making [facility] Narrative Medical decision making narrative: This 79-year-old female who is a heart transplant patient from 19 years ago presents for evaluation of nausea vomiting and diarrhea feeling weak and dizzy with a sensation that she is going to pass out while standing up. She has not actually passed out. She denies any chest pain or shortness of breath. She has no specific abdominal pain. She has not had a fever. She complains of mild shortness of breath. She is mostly concerned because she cannot keep down her antirejection medications including tacrolimus. Her lungs are clear, abdomen is soft. EKG done upon arrival is a sinus rhythm at 89 bpm with an incomplete right bundle branch block. This is unchanged since August 02, 2024. An IV had been placed by EMS and she was given 500 cc of normal saline, Zofran and Pepcid. On reevaluation she is feeling better and tolerating ice chips. She is negative for COVID and influenza however her with BUN and creatinine are markedly elevated today likely indicating dehydration. Is 116 and creatinine is 5.97. The CO2 is low at 10.9. glucose is mildly elevated at 136 and calcium is low at 6.8. GFR is 7-8. Her potassium is mildly low at 3.2. White count is mildly elevated at 13.9 globin is stable at 12.2. Chest x-ray shows infiltrate in the left lower lobe concerning for pneumonia. She was given IV Rocephin for this and calcium gluconate for her low calcium. Urine is pending at this time. She will require admission for hydration and further evaluation of her kidney function. She does not have a assigner because she states she does not typically have any problem with her kidneys. Case was discussed with the hospitalist who requests that I order blood cultures and add on zithromax. Medical Records Medical records reviewed: Yes I reviewed the patient's medical records Medical records narrative: [place] [id number] XRay Report Signed Patient: SYLVIA HANNA MR#: [id number] : 1945 Acct:[id number] Age/Sex: 79 / F ADM Date: 01/04/25 Loc: ER Attending Dr: Ordering Physician: Elisa Lopez Date of Service: 01/04/25 Procedure(s): XR chest 1V Accession Number(s): [id number] cc: Vijay Davis M.D.; Elisa Lopez~ The [address] [address] Patient Name: SYLVIA HANNA MRN: [id number] date: 1945 Sex: F Assigned Patient Location: ED.MAIN Current Patient Location: ER Accession/Order Number: [id number] Exam Date: 01/04/2025 21:55 Report Date: 01/04/2025 22:16 At the request of: ELISA LOPEZ Procedure: XR chest 1V EXAM: XR chest 1V HISTORY: weakness COMPARISON: 08/02/2024. TECHNIQUE: Chest portable upright one view FINDINGS: Lungs are mildly hyperinflated. Patchy opacity in the lingula and left lower lobe. Right lung is clear. No effusion. No pneumothorax. There are median sternotomy changes and surgical clips in the mediastinum. Heart size within normal limits. Pulmonary vasculature is normal. There are cholecystomy clips. XR/XR chest 1V IMPRESSION: 1. Small vague area of patchy airspace disease reflecting atelectasis or pneumonitis in the lingula/left lower lobe. Correlate with symptoms and recommend short interval follow-up to resolution. 2. Clear right lung. 3. Median sternotomy with surgical clips in the mediastinum, normal heart Lab Data Lab results reviewed: Yes I reviewed the patient's lab results Labs: Lab Results 01/04/25 01/04/25 Range/Units 21:30 21:50 WBC 13.9 H (4.0-11.0) 10^3/uL RBC 4.16 L (4.20-5.40) 10^6/uL Hgb 12.2 (12.0-16.0) g/dL Hct 37.1 (36.0-48.0) % MCV 89.2 (81.0-99.0) fL MCH 29.3 (26.7-34.0) pg MCHC 32.9 (29.9-35.2) g/dL RDW 14.6 (11.0-15.0) % Plt Count 219 (150-450) 10^3/uL MPV 10.8 (9.5-13.5) fL Neut % (Auto) 82.7 H (43.0-75.0) % Lymph % (Auto) 8.3 L (20.5-60.0) % Curry % (Auto) 8.2 (1.7-12.0) % Eos % (Auto) 0.2 L (0.9-7.0) % Baso % (Auto) 0.2 (0.2-2.0) % Neut # (Auto) 11.5 H (1.4-6.5) 10^3/uL Lymph # (Auto) 1.2 (1.2-3.8) 10^3/uL Curry # (Auto) 1.1 H (0.3-0.8) 10^3/uL Eos # (Auto) 0.0 (0.0-0.7) 10^3/uL Baso # (Auto) 0.0 (0.0-0.1) 10^3/uL Abs Immat Gran (auto) 0.06 H (0.00-0.03) 10^3/uL Imm/Tot Granulo (auto) 0.4 (0.0-0.5) % Sodium 138 (136-145) mmol/L Potassium 3.2 L (3.5-5.1) mmol/L Chloride 104 (98-107) mmol/L Carbon Dioxide 10.9 L (21.0-32.0) mmol/L Anion Gap 26.3 BUN 116.0 H* (7.0-18.0) mg/dL Creatinine 5.97 H* (0.55-1.02) mg/dL Est GFR ( Amer) 8 L (>=60 mL/min/1.73m^2) Est GFR (Non-Af Amer) 7 L (>=60 mL/min/1.73m^2) BUN/Creatinine Ratio 19.4 Glucose 136 H (74-106) mg/dL Calcium 6.8 L (8.5-10.1) mg/dL Total Bilirubin 0.5 (0.2-1.0) mg/dL AST 33 (15-37) U/L ALT 49 (14-59) U/L Alkaline Phosphatase 310 H (46-116) U/L Troponin I High Sens 9.8 (4.0-51.3) pg/mL Total Protein 6.7 (6.4-8.2) g/dL Albumin 3.4 (3.4-5.0) g/dL Globulin 3.3 g/dL Albumin/Globulin Ratio 1.0 Lipase 16.0 (16.0-77.0) U/L Influenza Type A Ag Negative Influenza Type B Ag Negative SARS-CoV-2 Ag (CV2AG) Negative (NEGATIVE) ECG Data Attestation: I personally reviewed and interpreted this ECG as follows: (Sinus rhythm 89 bpm, right axis deviation, incomplete right bundle branch block, nonspecific ST changes) Prior ECG tracings: available for review (EKG unchanged since 08/02/2024) Discharge Plan Discharge Chief Complaint: Weakness Clinical Impression: Generalized weakness, Gastroenteritis, Acute kidney injury (nontraumatic), LLL pneumonia, Hypocalcemia Patient Disposition: Admitted As Inpatient Time of Disposition Decision: 23:39 Condition: Fair Prescriptions / Home Meds: No Action levothyroxine 112 mcg tablet 112 mcg PO QDAY pramipexole 0.5 mg tablet 0.5 mg PO DAILY aspirin 81 mg tablet,delayed release (DR/EC) 81 mg PO DAILY tacrolimus 0.5 mg capsule 1 mg PO BID Rx Instructions: 1 MG capsule by mouth AM and PM simvastatin 20 mg tablet 20 mg PO DAILY Creon 36,000-114,000- 180,000 unit capsule,delayed release(DR/EC) 3 cap PO TID Rx Instructions: administer with meals and/or snacks omega-3 fatty acids-fish oil [Fish Oil] 360-1,200 mg capsule 1 cap PO DAILY mycophenolate mofetil 250 mg capsule 500 mg PO BID carvedilol 12.5 mg Tablet 12.5 mg PO BID Qty: 60 11RF magnesium oxide 400 mg (241.3 mg magnesium) Tablet 400 mg PO BID Qty: 60 11RF citalopram 20 mg tablet 20 mg PO DAILY Creon 36,000-114,000- 180,000 unit capsule,delayed release(DR/EC) See Rx Instructions PO TID Patient Comments: Take 3 capsules by mouth three times a day Rx Instructions: 3 capsules orally three times a day; administer with meals and/or snacks cefdinir 300 mg capsule 600 mg PO DAILY Qty: 20 0RF Print Language: Burkinan Referrals: Vijay Davis MD [Primary Care Provider] - 1 week
--- OUTSIDE RECORDS SUMMARY | 2025-01-04 21:26 | XMS_ITS | CCD ---
Author Organization [facility] Care Team Providers Care Quality Control Head Name Role Phone Tao Davis MD Primary Care Provider [phone] SCOT ROGERS Primary Care Physician [phone] Tao Davis MD Primary Care Provider [phone] NICOLETTE RICE Attending UnavailARELIS Rivera Referring Unavailable TAO DAVIS Primary Care Unavailable Tao Davis MD Primary Care Provider [phone] TORIBIO Sanchez, DR BURGER Primary Care Unavailable [...] Unavailable HOY ., DR BURGER Attending Unavailable KINGFISHER, DR JAZLYN Marcelino Consulting Unavailable SUE, SCOT [...] Unavailable Tao Davis MD Primary Care Provider [phone] Allergies Allergy Classification Reported Allergen(s) Allergy Type Date of Onset Reaction(s) Facility (11 sources) Acetaminophen / oxyCODONE; Translations: [OXYCODONE-ACETAM INOPHEN] Drug Allergy 05-18-20 14 GI Upset [facility] Work Phone: (12 sources) Promethazine; Translations: [PROMETHAZINE HCL] Drug Allergy 10-11-20 05 Other: See Comments [facility] (3 sources) Levamisole; Translations: [Phenergan] Drug Allergy 04-07-20 13 [facility] (1 source) Morphine Drug Allergy [facility] (3 sources) Promethazine; Translations: [promethazine] Drug Allergy 08-12-20 22 Loss of consciousness (finding) [facility] (1 source) No Known Medication Allergies; Translations: [No Known Medication Allergies] Propensity to adverse reactions (disorder) [facility] Repository Medications Current Medications Medication Drug [...] on above: Take 2 tablets by mo [facility] as needed for up to 180 days. 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 Dinh on 10/26/2024. Patient verbalized understanding. [facility] Office Visiton 09-14-2024 Follow-up visit [id number] Sylvia Hanna 1945 F Date Provider Department Center 09/14/2024 ANISHA JACOBS JULIAN Hernandez Family History Family history unknown: Yes Level of Service:56492 [place] OFFICE/OUTPATIENT ESTABLISHED MOD MDM 30 MIN [facility] 36on 07-22-2024 36 Patient made aware. I sent her tacrolimus order in the mail for her to have done at [facility] 1 week prior to seeing Dr. Dinh for follow up on 09/14/2024. She verbalized understanding. [facility] 36on 07-21-2024 36 Regarding tacrolimus level drawn on 07/07/2024: MD Kaela Smith MA Did she have the echo? Her tacrolimus level is slightly high. I want a repeat in 2 months. *Dr. Dinh, her echo was performed on 07/13/2024 and is scanned into multimedia artist. Will you review this and then I will call Sylvia. Thanks. [facility] Office Visiton 07-01-2024 Follow-up visit [id number] Sylvia Hanna 1945 F Date Provider Department Center 07/01/2024 ANISHA JACOBS JULIAN [facility] Family History Family history unknown: Yes Level of Service:55146 [place] OFFICE/OUTPATIENT ESTABLISHED MOD MDM 30 MIN Normal [facility] Activated partial thrombopla stin time (aPTT) in platelet poor plasma by coagulation aOrdered By: NON STAFF on 06-18-2024 aPTT Coag (PPP) [Time] 31.8 s 25.1-36.5 [facility] Comment on above: A hematocrit value g reater than 55% may lead to inaccurate results in coagulation testing. Patients having hematocrit values >55% require a special collection tube for coagulation studies. Please contact the laboratory at [phone] for redraw instructions. INR in Platelet poor plasma by Coagulation assayOrdered By: NON STAFF on 06-18-2024 INR Coag (PPP) [Relative time] 1.3 {INR} Normal [facility] Comment on above: INR Therapeutic Rang [...] Performed By: #### P TT, PT #### [facility] [address] [place] [address] [place] Partial Thromboplastin Timeo n 06-18-2024 aPTT Coag (Bld) [Time] 31.8 s Normal 25.1-36.5 [facility] Comment on above: Result Comment: A he matocrit value greater than 55% may lead to inaccurate results in coagulation testing. Patients having hematocrit values >55% require a special collection tube for coagulation studies. Please contact the laboratory at [phone] for redraw instructions. PERFORMED BY: [place] [id number] PATHOLOGIST HANDLE AND VENT MACHINE OPERATOR ANDREIA ARRINGTON M.D. Performed By: #### P TT, PT #### [address] Prothrombin time (PT)Ordered By: NON STAFF on 06-18-2024 PT Coag (PPP) [Time] 14.4 s High 9.0-12.9 [facility] Comment on above: A hematocrit value g reater than 55% may lead to inaccurate results in coagulation testing. Patients having hematocrit values >55% require a special collection tube for coagulation studies. Please contact the laboratory at [phone] for redraw instructions. Result Comment: A he matocrit value greater than 55% may lead to inaccurate results in coagulation testing. Patients having hematocrit values >55% require a special collection tube for coagulation studies. Please contact the laboratory at [phone] for redraw instructions. Performed By: #### P TT, PT #### [place] [id number] [facility] 36on 04-06-2024 36 I reviewed the blood [...] labs as ordered at last visit. Normal [facility] Telephoneon 04-06-2024 Telephone [id number] Sylvia Hanna 1945 F Date Provider Department Center 04/06/2024 ANISHA JACOBS [facility] Family History Family history unknown: Yes Normal [facility] Orders Onlyon 03-18-2024 Orders Only [id number] Sylvia Hanna 1945 F Date Provider Department Center 03/18/2024 [id number] ISLAS GUS Hernandez Family History Family history unknown: Yes Normal [facility] Office Visiton 02-03-2024 Follow-up visit [id number] Sylvia Hanna 1945 F Date Provider Department Center 02/03/2024 ANISHA JACOBS Family History Family history unknown: Yes Level of Service:63602 [place] OFFICE/OUTPATIENT ESTABLISHED MOD MDM 30 MIN Normal [facility] Office Visiton 11-12-2023 Follow-up visit [id number] Sylvia Hanna 1945 F Date Provider Department Center 11/12/2023 ANISHA JACOBS Family History Family history unknown: Yes Level of Service:15429 [place] OFFICE/OUTPATIENT ESTABLISHED MOD MDM 30-39 MIN [facility] 36on 10-26-2023 36 Her tacrolimus level from 10/16/2023 was 1.4. still very low. I believe she is currently taking tacrolimus (Prograf) 0.5 mg bid. I want her to increase to 1 mg bid and obtain another trough level in 2-3 weeks. Normal [facility] Telephoneon 10-26-2023 Telephone [id number] Sylvia Hanna 1945 F Date Provider Department Center 10/26/2023 ANISHA JACOBS Family History Family history unknown: Yes Normal [facility] CHEMISTRYOrdered By: SYSTEM SYSTEM on 04-08-2023 Anion [...] 42 mL/min/1.73 m2 Low >=59mL/min/ 1.73 m2 [facility] Chem S Glucose [Mass/Vol] 124 mg/dL Normal [...] 9.70 pg/mL Low 10.10 - 27.10 pg/mL [facility] Remisol CHEMISTRYOrdered By: SYSTEM SYSTEM on 04-07-2023 [...] 35 mL/min/1.73 m2 Low >=59mL/min/ 1.73 m2 [facility] Chem S Glucose [Mass/Vol] 139 mg/dL Normal [...] HemeAutoSS INFLUENZA A AND B AGon 03-05 [facility] SEE BELOW Normal [facility] Comment on above: Result Comment: Nega tive for Flu A protein angiten. Infection due to Flu A cannot be ruled out. Flu A angiten in the sample may be below the detection limit of the test. Performed By: #### E RUR #### [facility] [address] [address] [address] Hardeep Rivera [facility] SEE BELOW Normal [facility] Comment on above: Result Comment: Nega tive for Flu B protein antigen. Infection due to Flu B cannot be ruled out. Flu B antigen in the sample may be below the detection limit of the test. Performed By: #### E RUR #### [facility] [address] [address] [address] Hardeep Rivera INFLUENZA A AG Negative Normal NEGATIVE SEE COMMENT [facility] Comment on above: Performed By: #### E RUR #### [facility] [address] [address] [address] Hardeep Rivera INFLUENZA B AG Negative Normal NEGATIVE SEE COMMENT [facility] Comment on above: Performed By: #### E RUR #### [facility] [address] [address] [address] Hardeep Rivera SYMPTOMATIC COVID-19 ANTIGEN on 03-05-2023 EUA Statement SEE BELOW Normal [facility] Comment on above: Result Comment: This [...] revoked sooner. Performed By: #### C VDAGS ####[facility] [address] [place] [address]Dr. Hardeep Rivera SARS-CoV-2 (COVID-19) RNA ULICES+probe Ql (Unsp spec) Positive Abnormal NEGATIVE [facility] Comment on above: Performed By: #### C VDAGS ####[facility] [address] [place] [id number]. Hardeep Rivera FK506 (TACROLIMUS) WHOLE BLO ODon 02-28-2023 Tacrolimus (FK506), Blood 5.8 ng/mL Normal 2.0-20.0 [facility] Comment on above: Result Comment: Trou gh (immediately following transplant) 15.0 . Trough (steady state, 2 weeks or more after transplant): 3.0 - 8.0 . Performed by LC-MS/MS technology. Performed By: #### F K506T ####[facility] [address] [place] [address]Dr. Hardeep Rivera CBC AUTO DIFFon 02-14-2023 BASO # 0.0 103/ul Normal 0.0-0.1 [facility] Comment on above: Performed By: #### RANDALL OLSON #### [facility] [address] [place] [address] Dr. Hardeep Rivera Basophils/100 WBC (Bld) 0.5 % Normal 0.2-2.0 [facility] Comment on above: Performed By: #### RANDALL OLSON #### [facility] [address] [place] [address] Dr. Hardeep Rivera EO # 0.2 103/ul Normal 0.0-0.7 [facility] Comment on above: Performed By: #### RANDALL OLSON #### [facility] [address] [place] [address] Dr. Hardeep Rivera Eosinophils/100 WBC (Bld) 3.5 % Normal 0.9-7.0 [facility] Comment on above: Performed By: #### RANDALL OLSON #### [facility] [address] [place] [address] Dr. Hardeep Rivera Erythrocyte distribution width (RBC) [Ratio] 12.3 % Normal 11.0-15.0 [facility] Comment on above: Performed By: #### RANDALL OLSON #### [facility] [address] [place] [address] Dr. Hardeep Rivera Hematocrit (Bld) [Volume fraction] 38.7 % Normal 36.0-48.0 [facility] Comment on above: Performed By: #### HARI OLSONRO #### [facility] [address] [place] [address] Dr. Hardeep Rivera Hemoglobin (Bld) [Mass/Vol] 12.6 g/dL Normal 12.0-16.0 [facility] Comment on above: Performed By: #### E RUR, UMICRO #### [facility] [address] [address] [address] Hardeep Rivera IG # 0.03 10e3/ul Normal 0.00-0.03 [facility] Comment on above: Performed By: #### E RUR, UMICRO #### [facility] [address] [place] [address] Dr. Hardeep Rivera IG % 0.5 % Normal 0.0-0.5 [facility] Comment on above: Performed By: #### E RUR, UMICRO #### [facility] [address] [place] [address] Dr. Hardeep Rivera LYMPH # 0.8 103/ul Critically low 1.2-3.8 [facility] Comment on above: Performed By: #### E KATHRIN, UMICRO #### [facility] [address] [place] [address] Dr. Hardeep Rivera Lymphocytes/100 WBC (Bld) 13.2 % Critically low 20.5-60.0 [facility] Comment on above: Performed By: #### Deedee PINON, UMICRO #### [facility] [address] [place] [address] Dr. Hardeep Rivera MANUAL DIFF REQ NO Normal [facility] Comment on above: Performed By: #### E RUTrish, UMICRO #### [facility] [address] [place] [address] Dr. Hardeep Rivera MCH (RBC) [Entitic mass] 28.3 pg Normal 26.7-34.0 [facility] Comment on above: Performed By: #### E RUTrish, UMICRO #### [facility] [address] [place] [address] Dr. Hardeep Rivera MCHC (RBC) [Mass/Vol] 32.6 g/dL Normal 29.9-35.2 [facility] Comment on above: Performed By: #### Deedee RUR, UMICRO #### [facility] [address] [place] [address] Dr. Hardeep Rivera MCV (RBC) [Entitic vol] 87.0 fL Normal 81.0-99.0 [facility] Comment on above: Performed By: #### RANDALL OLSON #### [facility] [address] [place] [address] Dr. Hardeep Rivera MONO # 0.8 103/ul Normal 0.3-0.8 [facility] Comment on above: Performed By: #### RANDALL OLSON #### [facility] [address] [place] [address] Dr. Hardeep Rivera Monocytes/100 WBC (Bld) 12.9 % Critically high 1.7-12.0 [facility] Comment on above: Performed By: #### RANDALL OLSON #### [facility] [address] [place] [address] Dr. Hardeep Rivera NEUT # 4.4 103/ul Normal 1.4-6.5 [facility] Comment on above: Performed By: #### RANDALL OLSON #### [facility] [address] [place] [address] Dr. Hardeep Rivera Neutrophils/100 WBC (Bld) 69.4 % Normal 43.0-75.0 [facility] Comment on above: Performed By: #### RANDALL OLSON #### [facility] [address] [place] [address] Dr. Hardeep Rivera Platelet mean volume (Bld) [Entitic vol] 9.0 fL Critically low 9.5-13.5 [facility] Comment on above: Performed By: #### HARI OLSONRO #### [facility] [address] [place] [address] Dr. Hardeep Rivera PLT 205 103/ul Normal 150-450 [facility] Comment on above: Performed By: #### HARI OLSONRO #### [facility] [address] [place] [address] Dr. Hardeep Rivera RBC 4.45 106/ul Normal 4.20-5.40 [facility] Comment on above: Performed By: #### HARI OLSONRO #### [facility] [address] [address] [address] Hardeep Rivera WBC 6.3 103/ul Normal 4.0-11.0 [facility] Comment on above: Performed By: #### RANDALL OLSON #### [facility] [address] [place] [address] HEAD WO CONon [...] CAMERON NELSON Date: 2023-02-14 15:46 Normal [facility] ER URINE PROFILEon 3 Bilirubin Ql (U) Negative Normal NEGATIVE [facility] Comment on above: Performed By: #### RANDALL OLSON #### [facility] [address] [place] [address] Dr. Hardeep Rivera Clarity (U) CLEAR Normal CLEAR [facility] Comment on above: Performed By: #### RANDALL OLSON #### [facility] [address] [address] [address] Hardeep Rivera Color (U) LT. YELLOW Normal YELLOW [facility] Comment on above: Performed By: #### E RUR, UMICRO #### [facility] [address] [place] [address] Dr. Hardeep FRANCIS A micrscopic examina tion will be performed if indicated. Normal [facility] Comment on above: Performed By: #### E RUR, UMICRO #### [facility] [address] [place] [address] Dr. Hardeep Rivera Glucose Ql (U) Negative Normal NEGATIVE [facility] Comment on above: Performed By: #### E RUR, UMICRO #### [facility] [address] [place] [address] Dr. Hardeep Rivera Hemoglobin Ql (U) TRACE-INTACT Abnormal NEGATIVE [facility] Comment on above: Performed By: #### E RUR, UMICRO #### [facility] [address] [place] [address] Dr. Hardeep Rivera Ketones Ql (U) Negative Normal NEGATIVE [facility] Comment on above: Performed By: #### E RUR, UMICRO #### [facility] [address] [place] [address] Dr. Hardeep Rivera LEUKOCYTES Negative Normal NEGATIVE [facility] Comment on above: Performed By: #### Deedee RUTrish, UMICRO #### [facility] [address] [place] [address] Dr. Hardeep Rivera Nitrite Ql (U) Negative Normal NEGATIVE [facility] Comment on above: Performed By: #### E RUR, UMICRO #### [facility] [address] [place] [address] Dr. Hardeep Rivera pH (U) 7.0 [pH] Normal 5-9 [facility] Comment on above: Performed By: #### E RUR, UMICRO #### [facility] [address] [place] [address] Dr. Hardeep Rivera Protein (U) [Mass/Vol] 30 mg/dL Abnormal NEGATIVE/ TRACE [facility] Comment on above: Performed By: #### E RUR, UMICRO #### [facility] [address] [address] [address] Hardeep Rivera SPEC GRAVITY 1.010 Normal 1.005-<=1.[address] [place] [address] Comment on above: Performed By: #### HARI OLSONRO #### [facility] [address] [place] [address] Dr. Hardeep Rivera UR MICRO IND INDICATED Normal [facility] Comment on above: Performed By: #### HARI OLSONRO #### [facility] [address] [address] [address] Hardeep Rivera Urobilinogen Qn (U) 0.2 {Kevon'U}/dL Normal 0.2 - 1. 0 [facility] Comment on above: Performed By: #### HARI OLSONRO #### [facility] [address] [place] [address] Dr. Hardeep Rivera PROF 14(COMP METB)on 023 Albumin [Mass/Vol] 3.5 g/dL Normal 3.4-5.0 [facility] Comment on above: Performed By: #### H STROPN, CMP, TSH ####[facility] [address] [place] [address]DrLaura Rivera Albumin/Globulin [Mass ratio] 1.2 {ratio} Normal [facility] Comment on above: Performed By: #### H STROPN, CMP, TSH ####[facility] [address] [place] [address]DrLaura Rivera ALP [Catalytic activity/Vol] 153 U/L Critically high 46-116 [facility] Comment on above: Performed By: #### H STROPN, CMP, TSH ####[facility] [address] [place] [address]DrLaura Rivera ALT [Catalytic activity/Vol] 21 U/L Normal 14-59 [facility] Comment on above: Performed By: #### H STROPN, CMP, TSH ####[facility] [address] [place] [address]DrLaura Rivera Anion gap [Moles/Vol] 9.3 mmol/L Normal [facility] Comment on above: Performed By: #### H TYLER CMP, TSH ####[facility] [address] [place] [address]Dr. Hardeep Rivera AST [Catalytic activity/Vol] 23 U/L Normal 15-37 [facility] Comment on above: Performed By: #### H TYLER CMP, TSH ####[facility] [address] [place] [address]Dr. Hardeep Rivera Bilirubin [Mass/Vol] 0.6 mg/dL Normal 0.2-1.0 [facility] Comment on above: Performed By: #### H TYLER CMP, TSH ####[facility] [address] [place] [address]Dr. Hardeep Rivera Calcium [Mass/Vol] 8.4 mg/dL Critically low 8.5-10.1 [facility] Comment on above: Performed By: #### H TYLER CMP, TSH ####[facility] [address] [place] [address]Dr. Hardeep Rivera Chloride [Moles/Vol] 96 mmol/L Critically low 98-107 [facility] Comment on above: Performed By: #### H TYLER CMP, TSH ####[facility] [address] [place] [address]Dr. Hardeep Rivera CO2 [Moles/Vol] 29.3 mmol/L Normal 21.0-32.[address] [facility] Comment on above: Performed By: #### H TYLER CMP, TSH ####[facility] [address] [place] [address]Dr. Hardeep Rivera Creatinine [Mass/Vol] 1.16 mg/dL Critically high 0.55-1.02 [facility] Comment on above: Performed By: #### H STRONATHANIEL, CMP, TSH ####[facility] [address] [place] [address]Dr. Hardeep Rivera EGFR-AF GERMAN 55 mL/min/1.73m2 Critically low >=60 [facility] Comment on above: Performed By: #### H STROPN, CMP, TSH ####[facility] [address] [place] [address]Dr. Hardeep Rivera EGFR-NON AF GERMAN 45 mL/min/1.73m2 Critically low >=60 [facility] Comment on above: Performed By: #### H STROPN, CMP, TSH ####[facility] [address] [place] [address]Dr. Hardeep Rivera Globulin (S) [Mass/Vol] 2.9 g/dL Normal [facility] Comment on above: Performed By: #### H STROPN, CMP, TSH ####[facility] [address] [place] [address]Dr. Hardeep Rivera Glucose [Mass/Vol] 105 mg/dL Normal 74-106 [facility] Comment on above: Performed By: #### H STROPN, CMP, TSH ####[facility] [address] [place] [address]Dr. Hardeep Rivera Potassium [Moles/Vol] 4.6 mmol/L Normal 3.5-5.1 [facility] Comment on above: Performed By: #### H STROPN, CMP, TSH ####[facility] [address] [place], [place] [address]Dr. Hardeep Rivera Protein [Mass/Vol] 6.4 g/dL Normal 6.4-8.2 [facility] Comment on above: Performed By: #### H STROPN, CMP, TSH ####[facility] [address] [place] [address]Dr. Hardeep Rivera Sodium [Moles/Vol] 130 mmol/L Critically low 136-145 [facility] Comment on above: Performed By: #### H STROPN, CMP, TSH ####[facility] [address] [place] [address]Dr. Hardeep Rivera Urea nitrogen [Mass/Vol] 27.0 mg/dL Critically high 7.0-18.0 [facility] Comment on above: Performed By: #### H STROPN, CMP, TSH ####[facility] [address] [place], [place] [address]Dr. Hardeep Rivera Urea nitrogen/Creatinine [Mass ratio] 23.3 mg/mg Normal [facility] Comment on above: Performed By: #### H TYLER, CMP, TSH ####[facility] [address] [place] [address]Dr. Hardeep Rivera PROTIMEon 02-14-2023 INR Coag (PPP) [Relative time] 1.07 {INR} Normal [facility] Comment on above: Performed By: #### P T, PTT ####[facility] [address] [place], [place] [address]Dr. Hardeep Rivera INR GUIDELINES SEE BELOW Normal [facility] Comment on above: Result Comment: EDMUND RED INR: 2.0 - 3.0 CONDITIONS NOT LISTED BELOW 2.5 - 3.5 FOR PROSTHETIC HEART VALVE REPLACEMENT 2.5 - 3.5 RECURRENT THROMBOSIS Performed By: #### P T, PTT ####[facility] [address] [place], [place] [address]Dr. Hardeep Rivera PT Coag (PPP) [Time] 11.3 s Normal 9.0-11.6 [facility] Comment on above: Performed By: #### P T, PTT ####[facility] [address] [place], [place] [address]Dr. Hardeep Rivera PTTon 02-14-2023 aPTT Coag (Bld) [Time] 29.1 s Normal 22.3-36.2 [facility] Comment on above: Performed By: #### P T, PTT ####[facility] [address] [place], [place] [address]Dr. Hardeep Rivera TROPONIN, HIGH SENSITIVITYon 02-14-2023 HSTROP 10.4 pg/mL Normal 4.0-51.3 [facility] [place] [facility] Comment on above: Result Comment: CUT- OFF POINTS HAVE BEEN ESTABLISHED BASED ON THE FOURTH UNIVERSAL DEFINITIONS OF MYOCARDIAL INFARCTION. THE UPPER REFERENCE LIMIT (URL) OF TROPONIN, DEFINED THE 99TH PERCENTILE OF cTnI DISTRIBUTION IN A REFERENCE POPULATION, HAS BEEN CONFIRMED THE DECISION THRESHOLD FOR SD DIAGNOSIS. Performed By: #### H PETEPN, CMP, TSH ####[facility] [place] [facility] [address] [place] [id number]. Hardeep Rivera TSHon 02-14-2023 TSH 1.237 uIU/mL Normal 0.358-3.740 [facility] Comment on above: Performed By: #### H STROPN, CMP, TSH ####[facility] [place] [facility] [address] [place], [place] [address]VxDr. Hardeep Rivera URINE MICROSCOPIC ONLYon BACTERIA NONE SEEN Normal NONE SEEN [facility] Comment on above: Performed By: #### Deedee PINON UMICRO #### [facility] [place] [facility] [address] [place] [address] Dr. Hardeep Rivera Bacteria identified Cx Nom (U) NOT INDICATED Normal [facility] [place] [facility] Comment on above: Performed By: #### Deedee PINON UMICRO #### [facility] [place] [facility] [address] [place] [address] Dr. Hardeep Rivera CAST NONE SEEN Normal NONE SEEN [facility] Comment on above: Performed By: #### Deedee PINON UMICRO #### [facility] [place] [facility] [address] [place] [address] Dr. Hardeep Rivera Crystals LM Nom (Urine sed) NONE SEEN Normal NONE SEEN [facility] Comment on above: Performed By: #### Deedee PINON UMICRO #### [facility] [place] [facility] [address] [place] [address] Dr. Hardeep Rivera Epithelial cells LM Ql (Urine sed) NONE SEEN Normal NONE SEEN /RARE [facility] [place] [facility] Comment on above: Performed By: #### Deedee PINON UMICRO #### [facility] [place] [facility] [address] [place] [address] Dr. Hardeep Rivera MUCOUS NONE SEEN Normal NONE SEEN [facility] Comment on above: Performed By: #### Deedee PINON UMICRO #### [facility] [place] [facility] [address] [place] [address] Dr. Hardeep Rivera RBC 0-2 Normal 0-2 [facility] [place] [facility] Comment on above: Performed By: #### Deedee PINON UMICRO #### [facility] [place] [facility] [address] [place] [address] Dr. Hardeep Rivera WBC NONE SEEN Normal NONE SEEN [facility] [place] [facility] Comment on above: Performed By: #### E RURRANDALL #### [facility] [place] [facility] [address] [place], [place] [address] Dr. Hardeep Rivera XR CHEST 1 Von [...] JAZLYN DUBOSE Date: 2023-02-14 15:50 Normal [facility] [place] [facility] FK506 (TACROLIMUS) WHOLE BLO ODon 02-13-2023 Tacrolimus (FK506), Blood 1.4 ng/mL Critically low 2.0-20.0 [facility] Comment on above: Result Comment: Trou gh (immediately following transplant) 15.0 . Trough (steady state, 2 weeks or more after transplant): 3.0 - 8.0 . Performed by LC-MS/MS technology. Performed By: #### E RUR #### [facility] [place] [facility] [address] [place] [id number] Hardeep Rivera PROF 14(COMP METB)on 023 Albumin [Mass/Vol] 3.5 g/dL Normal 3.4-5.0 [facility] Comment on above: Performed By: #### C MP ####[facility] [place] [facility] [address] [place] [id number]. Hardeep Rivera Albumin/Globulin [Mass ratio] 1.2 {ratio} Normal [facility] Comment on above: Performed By: #### C MP ####[facility] [place] [facility] [address] [place] [id number] Rivera ALP [Catalytic activity/Vol] 149 U/L Critically high 46-116 [facility] [place] [facility] Comment on above: Performed By: #### C MP ####[facility] [place] [facility] [address] [place] [id number] Rivera ALT [Catalytic activity/Vol] 19 U/L Normal 14-59 [facility] Comment on above: Performed By: #### C MP ####[facility] [place] [facility] [address] [place] [id number]. Hardeep Rivera Anion gap [Moles/Vol] 11.7 mmol/L Normal [facility] Comment on above: Performed By: #### C MP ####[facility] [place] [facility] [address] [place] [id number]. Haredep Rivera AST [Catalytic activity/Vol] 27 U/L Normal 15-37 [facility] Comment on above: Performed By: #### C MP ####[facility] [place] [facility] [address] [place] [id number]. Hardeep Miguel Bilirubin [Mass/Vol] 0.6 mg/dL Normal 0.2-1.0 [facility] Comment on above: Performed By: #### C MP ####[facility] [place] [facility] [address] [place] [id number]. Hardeep Miguel Calcium [Mass/Vol] 8.5 mg/dL Normal 8.5-10.1 [facility] Comment on above: Performed By: #### C MP ####[facility] [place] [facility] [address] [place] [id number]. Hardeep Miguel Chloride [Moles/Vol] 96 mmol/L Critically low 98-107 [facility] [place] [facility] Comment on above: Performed By: #### C MP ####[facility] [place] [facility] [address] [place] [id number]. Hardeep Miguel CO2 [Moles/Vol] 28.1 mmol/L Normal 21.0-32.[address] [facility] Comment on above: Performed By: #### C MP ####[facility] [place] [facility] [address] [place] [id number]. Hardeep Miguel Creatinine [Mass/Vol] 1.24 mg/dL Critically high 0.55-1.02 [facility] Comment on above: Performed By: #### C MP ####[facility] [place] [facility] [address] [place] [address]Dr. Preethiarabella Miguel EGFR-AF GERMAN 51 mL/min/1.73m2 Critically low >=60 [facility] [place] [facility] Comment on above: Performed By: #### C MP ####[facility] [place] [facility] [address] [place] [address]Dr. Hardeep Rivera EGFR-NON AF GERMAN 42 mL/min/1.73m2 Critically low >=60 [facility] Comment on above: Performed By: #### C MP ####[facility] [place] [facility] [address] [place] [address]Dr. Hardeep Rivera Globulin (S) [Mass/Vol] 3.0 g/dL Normal [facility] Comment on above: Performed By: #### C MP ####[facility] [place] [facility] [address] [place] [id number]. Hardeep Rivera Glucose [Mass/Vol] 141 mg/dL Critically high 74-106 T [facility] Comment on above: Performed By: #### C MP ####[facility] [place] [facility] [address] [place] [address]Dr. Hardeep Rivera Potassium [Moles/Vol] 4.8 mmol/L Normal 3.5-5.1 [facility] Comment on above: Performed By: #### C MP ####[facility] [place] [facility] [address] [place] [id number]. Hardeep Rivera Protein [Mass/Vol] 6.5 g/dL Normal 6.4-8.2 [facility] Comment on above: Performed By: #### C MP ####[facility] [place] [facility] [address] [place] [id number]. Hardeep Rivera Sodium [Moles/Vol] 131 mmol/L Critically low 136-145 [facility] Comment on above: Performed By: #### C MP ####[facility] [place] [facility] [address] [place] [id number]. Hardeep Rivera Urea nitrogen [Mass/Vol] 29.0 mg/dL Critically high 7.0-18.0 [facility] Comment on above: Performed By: #### C MP ####[facility] [place] [facility] [address] [place] [id number]. Hardeep Miguel Urea nitrogen/Creatinine [Mass ratio] 23.4 mg/mg Normal [facility] Comment on above: Performed By: #### C MP ####[facility] [place] [facility] [address] [place] [id number]. Hardeep Rivera BNPon 01-09-2023 Natriuretic peptide B (Bld) [Mass/Vol] 336.0 pg/mL Normal <=1,800.0 [facility] [place] [facility] Comment on above: Performed By: #### C MP, TSH, BNP, T7 ####[facility] [place] [facility] [address] [place] [address]Dr. Hardeep Rivera CBC AUTO DIFFon 01-09-2023 BASO # 0.0 103/ul Normal 0.0-0.1 [facility] [place] [facility] Comment on above: Performed By: #### C BC #### [facility] [place] [facility] [address] [place] [address] Dr. Hardeep Rivera Basophils/100 WBC (Bld) 0.4 % Normal 0.2-2.0 [facility] Comment on above: Performed By: #### C BC #### [facility] [place] [facility] [address] [place] [address] Dr. Hardeep Rivera EO # 0.3 103/ul Normal 0.0-0.7 [facility] [place] [facility] Comment on above: Performed By: #### C BC #### [facility] [place] [facility] [address] [place] [address] Dr. Hardeep Rivera Eosinophils/100 WBC (Bld) 4.4 % Normal 0.9-7.0 [facility] [place] [facility] Comment on above: Performed By: #### C BC #### [facility] [place] [facility] [address] [place] [address] [address] Hardeep Rivera Erythrocyte distribution width (RBC) [Ratio] 12.3 % Normal 11.0-15.0 [facility] [place] [facility] Comment on above: Performed By: #### C BC #### [facility] [place] [facility] [address] [place] [address] Dr. Hardeep Rivera Hematocrit (Bld) [Volume fraction] 43.3 % Normal 36.0-48.0 [facility] Comment on above: Performed By: #### C BC #### [facility] [place] [facility] [address] [place] [address] Dr. Hardeep Rivera Hemoglobin (Bld) [Mass/Vol] 13.5 g/dL Normal 12.0-16.0 [facility] Comment on above: Performed By: #### C BC #### [facility] [place] [facility] [address] [place] [address] Dr. Hardeep Rivera IG # 0.02 10e3/ul Normal 0.00-0.03 [facility] Comment on above: Performed By: #### C BC #### [facility] [place] [facility] [address] [place] [address] Dr. Hardeep Rivera IG % 0.3 % Normal 0.0-0.5 [facility] Comment on above: Performed By: #### C BC #### [facility] [place] [facility] [address] [place] [address] Dr. Hardeep Rivera LYMPH # 1.1 103/ul Critically low 1.2-3.8 [facility] Comment on above: Performed By: #### C BC #### [facility] [place] [facility] [address] [place] [address] Dr. Hardeep Rivera Lymphocytes/100 WBC (Bld) 16.0 % Critically low 20.5-60.0 [facility] Comment on above: Performed By: #### C BC #### [facility] [place] [facility] [address] [place] [address] Dr. Hardeep Rivera MANUAL DIFF REQ NO Normal [facility] Comment on above: Performed By: #### C BC #### [facility] [place] [facility] [address] [place] [address] Dr. Hardeep Rivera MCH (RBC) [Entitic mass] 28.4 pg Normal 26.7-34.0 [facility] [place] [facility] Comment on above: Performed By: #### C BC #### [facility] [place] [facility] [address] [place] [address] Dr. Hardeep Rivera MCHC (RBC) [Mass/Vol] 31.2 g/dL Normal 29.9-35.2 [facility] Comment on above: Performed By: #### C BC #### [facility] [place] [facility] [address] [place] [address] Dr. Hardeep Rivera MCV (RBC) [Entitic vol] 91.0 fL Normal 81.0-99.0 [facility] [place] [facility] Comment on above: Performed By: #### C BC #### [facility] [place] [facility] [address] [place] [address] [address] Hardeep Rivera MONO # 1.0 103/ul Critically high 0.3-0.8 [facility] Comment on above: Performed By: #### C BC #### [facility] [place] [facility] [address] [place] [address] [address] Hardeep Rivera Monocytes/100 WBC (Bld) 14.7 % Critically high 1.7-12.0 [facility] [place] [facility] Comment on above: Performed By: #### C BC #### [facility] [place] [facility] [address] [place] [address] Dr. Hardeep Rivera NEUT # 4.4 103/ul Normal 1.4-6.5 [facility] [place] [facility] Comment on above: Performed By: #### C BC #### [facility] [place] [facility] [address] [place] [address] Dr. Hardeep Rivera Neutrophils/100 WBC (Bld) 64.2 % Normal 43.0-75.0 [facility] [place] [facility] Comment on above: Performed By: #### C BC #### [facility] [place] [facility] [address] [place] [address] Dr. Hardeep Rivera Platelet mean volume (Bld) [Entitic vol] 9.5 fL Normal 9.5-13.5 [facility] [place] [facility] Comment on above: Performed By: #### C BC #### [facility] [place] [facility] [address] [place] [address] Dr. Hardeep Rivera PLT 238 103/ul Normal 150-450 [facility] [place] [facility] Comment on above: Performed By: #### C BC #### [facility] [place] [facility] [address] [place] [address] Dr. Hardeep Rivera RBC 4.76 106/ul Normal 4.20-5.40 [facility] [place] [facility] Comment on above: Performed By: #### C BC #### [facility] [place] [facility] [address] [place] [address] Dr. Hardeep Rivera WBC 6.8 103/ul Normal 4.0-11.0 [facility] Comment on above: Performed By: #### C BC #### [facility] [place] [facility] [address] [place] [address] [address] Hardeep Rivera FREE THYROXINE INDEX T7on FTI 3.96 Normal 1.30-4.50 [facility] Comment on above: Performed By: #### C MP, TSH, BNP, T7 ####[facility] [place] [facility] [address] [place] [address]Dr. Hardeep Rivera T3U 35.0 % Normal 30.0-39.0 [facility] Comment on above: Performed By: #### C MP, TSH, BNP, T7 ####[facility] [place] [facility] [address] [place] [address]Dr. Hardeep Rivera T4 [Mass/Vol] 11.30 ug/dL Normal 4.80-13.90 [facility] Comment on above: Performed By: #### C MP, TSH, BNP, T7 ####[facility] [place] [facility] [address] [place] [address]Dr. Hardeep Rivera PROF 14(COMP METB)on 023 Albumin [Mass/Vol] 3.9 g/dL Normal 3.4-5.0 [facility] Comment on above: Performed By: #### C MP, TSH, BNP, T7 ####[facility] [place] [facility] [address] [place] [address]DrLaura Rivera Albumin/Globulin [Mass ratio] 1.2 {ratio} Normal [facility] Comment on above: Performed By: #### C MP, TSH, BNP, T7 ####[facility] [place] [facility] [address] [place] [address]DrLaura Rivera ALP [Catalytic activity/Vol] 151 U/L Critically high 46-116 [facility] [place] [facility] Comment on above: Performed By: #### C MP, TSH, BNP, T7 ####[facility] [place] [facility] [address] [place] [address]DrLaura Rivera ALT [Catalytic activity/Vol] 30 U/L Normal 14-59 [facility] Comment on above: Performed By: #### C MP, TSH, BNP, T7 ####[facility] [place] [facility] [address] [place] [address]Dr. Hardeep Rivera Anion gap [Moles/Vol] 15.6 mmol/L Normal [facility] Comment on above: Performed By: #### C MP, TSH, BNP, T7 ####[facility] [place] [facility] [address] [place] [address]Dr. Hardeep Rivera AST [Catalytic activity/Vol] 23 U/L Normal 15-37 [facility] [place] [facility] Comment on above: Performed By: #### C MP, TSH, BNP, T7 ####[facility] [place] [facility] [address] [place], [place] [address]Dr. Hardeep Rivera Bilirubin [Mass/Vol] 0.7 mg/dL Normal 0.2-1.0 [facility] Comment on above: Performed By: #### C MP, TSH, BNP, T7 ####[facility] [place] [facility] [address] [place], [place] [address]Dr. Hardeep Rivera Calcium [Mass/Vol] 9.0 mg/dL Normal 8.5-10.1 [facility] Comment on above: Performed By: #### C MP, TSH, BNP, T7 ####[facility] [place] [facility] [address] [place], [place] [address]Dr. Hardeep Rivera Chloride [Moles/Vol] 97 mmol/L Critically low 98-107 [facility] Comment on above: Performed By: #### C MP, TSH, BNP, T7 ####[facility] [place] [facility] [address] [place], [place] [address]Dr. Hardeep Rivera CO2 [Moles/Vol] 26.1 mmol/L Normal 21.0-32.[address] [facility] Comment on above: Performed By: #### C MP, TSH, BNP, T7 ####[facility] [place] [facility] [address] [place], [place] [address]Dr. Hardeep Rivera Creatinine [Mass/Vol] 1.78 mg/dL Critically high 0.55-1.02 [facility] Comment on above: Performed By: #### C MP, TSH, BNP, T7 ####[facility] [place] [facility] [address] [place] [address]Dr. Hardeep Rivera EGFR-AF GERMAN 33 mL/min/1.73m2 Critically low >=60 [facility] Comment on above: Performed By: #### C MP, TSH, BNP, T7 ####[facility] [place] [facility] [address] [place] [address]Dr. Hardeep Rivera EGFR-NON AF GERMAN 28 mL/min/1.73m2 Critically low >=60 [facility] Comment on above: Performed By: #### C MP, TSH, BNP, T7 ####[facility] [place] [facility] [address] [place] [address]Dr. Hardeep Rivera Globulin (S) [Mass/Vol] 3.3 g/dL Normal [facility] Comment on above: Performed By: #### C MP, TSH, BNP, T7 ####[facility] [place] [facility] [address] [place], [place] [address]Dr. Hardeep Rivera Glucose [Mass/Vol] 127 mg/dL Critically high 74-106 T [facility] Comment on above: Performed By: #### C MP, TSH, BNP, T7 ####[facility] [place] [facility] [address] [place] [address]Dr. Hardeep Rivera Potassium [Moles/Vol] 3.7 mmol/L Normal 3.5-5.1 [facility] Comment on above: Performed By: #### C MP, TSH, BNP, T7 ####[facility] [place] [facility] [address] [place], [place] [address]Dr. Hardeep Rivera Protein [Mass/Vol] 7.2 g/dL Normal 6.4-8.2 [facility] Comment on above: Performed By: #### C MP, TSH, BNP, T7 ####[facility] [place] [facility] [address] [place], [place] [address]Dr. Hardeep Rivera Sodium [Moles/Vol] 135 mmol/L Critically low 136-145 [facility] Comment on above: Performed By: #### C MP, TSH, BNP, T7 ####[facility] [place] [facility] [address] [place] [address]Dr. Hardeep Rivera Urea nitrogen [Mass/Vol] 54.0 mg/dL Critically high 7.0-18.0 [facility] Comment on above: Performed By: #### C MP, TSH, BNP, T7 ####[facility] [place] [facility] [address] [place], [place] [address]Fp. Hardeep Rivera Urea nitrogen/Creatinine [Mass ratio] 30.3 mg/mg Normal [facility] Comment on above: Performed By: #### C MP, TSH, BNP, T7 ####[facility] [place] [facility] [address] [place], [place] [address]Ht. Hardeep Rivera TSHon 01-09-2023 TSH 1.097 uIU/mL Normal 0.358-3.740 [facility] Comment on above: Performed By: #### C MP, TSH, BNP, T7 ####[facility] [place] [facility] [address] [place], [place] [address]Hz. Hardeep Rivera ECHOCARDIO M/2D COMPLETEon 0 12-13-2022 ECHOCARDIO M/2D COMPLETE Patient: SYLVIA HANNA Exam Date: 12/13/2022 : 1945 Gender:F Ordering : [facility] Admission #: [id number] Family : Order #: [id number] CLICK HERE TO VIEW EXAM ECHOCARDIOGRAM REPORT [...] Area (VTI): 2.23 cm2, 2.23 cm2 Deceleration [place]: 1.44 m/s2 Pressure Half-Time: 850.98 ms Peak [...] Nolan M.D. on 12/14/2022 at 13:49 Normal [facility] US ALAN DOP LEG BILon 023 [...] HAI FOSTER Date: 2022-12-13 10:51 Normal [facility] [place] [facility] BNPon 12-11-2022 Natriuretic peptide B (Bld) [Mass/Vol] 457.0 pg/mL Normal <=1,800.0 [facility] Comment on above: Performed By: #### RANDALL OLSON #### [facility] [place] [facility] [address] [place], [place] [address] Dr. Hardeep Rivera CBC AUTO DIFFon 12-11-2022 BASO # 0.0 103/ul Normal 0.0-0.1 [facility] Comment on above: Performed By: #### RANDALL OLSON #### [facility] [place] [facility] [address] [place], [place] [address] Dr. Hardeep Rivera Basophils/100 WBC (Bld) 0.4 % Normal 0.2-2.0 [facility] [place] [facility] Comment on above: Performed By: #### RANDALL OLSON #### [facility] [place] [facility] [address] [place] [address] Dr. Hardeep Rivera EO # 0.2 103/ul Normal 0.0-0.7 [facility] [place] [facility] Comment on above: Performed By: #### RANDALL OLSON #### [facility] [place] [facility] [address] [place] [address] Dr. Hardeep Rivera Eosinophils/100 WBC (Bld) 2.7 % Normal 0.9-7.0 [facility] [place] [facility] Comment on above: Performed By: #### RANDALL OLSON #### [facility] [place] [facility] [address] [place] [address] Dr. Hardeep Rivera Erythrocyte distribution width (RBC) [Ratio] 11.9 % Normal 11.0-15.0 [facility] Comment on above: Performed By: #### RANDALL OLSON #### [facility] [place] [facility] [address] [place] [address] Dr. Hardeep Rivera Hematocrit (Bld) [Volume fraction] 40.2 % Normal 36.0-48.0 [facility] [place] [facility] Comment on above: Performed By: #### RANDALL OLSON #### [facility] [place] [facility] [address] [place] [address] Dr. Hardeep Rivera Hemoglobin (Bld) [Mass/Vol] 13.5 g/dL Normal 12.0-16.0 [facility] [place] [facility] Comment on above: Performed By: #### RANDALL OLSON #### [facility] [place] [facility] [address] [place] [address] Dr. Hardeep Rivera IG # 0.03 10e3/ul Normal 0.00-0.03 [facility] [place] [facility] Comment on above: Performed By: #### RANDALL OLSON #### [facility] [place] [facility] [address] [place] [address] Dr. Hardeep Rivera IG % 0.4 % Normal 0.0-0.5 [facility] [place] [facility] Comment on above: Performed By: #### RANDALL OLSON #### [facility] [place] [facility] [address] [place] [address] Dr. Hardeep Rivera LYMPH # 0.9 103/ul Critically low 1.2-3.8 [facility] Comment on above: Performed By: #### E COLLINSR, UMICRO #### [facility] [place] [facility] [address] [place] [address] Dr. Hardeep Rivera Lymphocytes/100 WBC (Bld) 11.3 % Critically low 20.5-60.0 [facility] Comment on above: Performed By: #### E RUR, UMICRO #### [facility] [place] [facility] [address] [place] [address] Dr. Hardeep Rivera MANUAL DIFF REQ NO Normal [facility] [place] Comment on above: Performed By: #### E KATHRIN, UMICRO #### [facility] [place] [facility] [address] [place] [address] Dr. Hardeep Rivera MCH (RBC) [Entitic mass] 28.4 pg Normal 26.7-34.0 [facility] Comment on above: Performed By: #### E KATHRIN, UMICRO #### [facility] [place] [facility] [address] [place] [address] Dr. Hardeep Rivera MCHC (RBC) [Mass/Vol] 33.6 g/dL Normal 29.9-35.2 [facility] Comment on above: Performed By: #### Deedee PINON, UMICRO #### [facility] [place] [facility] [address] [place] [address] Dr. Hardeep Rivera MCV (RBC) [Entitic vol] 84.5 fL Normal 81.0-99.0 [facility] Comment on above: Performed By: #### E KATHRIN, UMICRO #### [facility] [place] [facility] [address] [place] [address] Dr. Hardeep Rivera MONO # 1.0 103/ul Critically high 0.3-0.8 [facility] [place] Comment on above: Performed By: #### E KATHRIN, UMICRO #### [facility] [place] [facility] [address] [place] [address] Dr. Hardeep Rivera Monocytes/100 WBC (Bld) 12.5 % Critically high 1.7-12.0 [facility] [place] [facility] Comment on above: Performed By: #### RANDALL OLSON #### [facility] [place] [facility] [address] [place] [address] Dr. Hardeep Rivera NEUT # 5.9 103/ul Normal 1.4-6.5 [facility] [place] [facility] Comment on above: Performed By: #### RANDALL OLSON #### [facility] [place] [facility] [address] [place] [address] Dr. Hardeep Rivera Neutrophils/100 WBC (Bld) 72.7 % Normal 43.0-75.0 [facility] [place] [facility] Comment on above: Performed By: #### RANDALL OLSON #### [facility] [place] [facility] [address] [place] [address] Dr. Hardeep Rivera Platelet mean volume (Bld) [Entitic vol] 8.6 fL Critically low 9.5-13.5 [facility] [place] [facility] Comment on above: Performed By: #### RANDALL OLSON #### [facility] [place] [facility] [address] [place] [address] Dr. Hardeep Rivera PLT 226 103/ul Normal 150-450 [facility] [place] [facility] Comment on above: Performed By: #### RANDALL OLSON #### [facility] [place] [facility] [address] [place] [address] Dr. Hardeep Rivera RBC 4.76 106/ul Normal 4.20-5.40 [facility] [place] [facility] Comment on above: Performed By: #### RANDALL OLSON #### [facility] [place] [facility] [address] [place] [address] Dr. Hardeep Rivera WBC 8.2 103/ul Normal 4.0-11.0 [facility] [place] [facility] Comment on above: Performed By: #### RANDALL OLSON #### [facility] [place] [facility] [address] [place] [address] Dr. Hardeep Rivera FREE THYROXINE INDEX T7on FTI 3.40 Normal 1.30-4.50 [facility] [place] [facility] Comment on above: Performed By: #### RANDALL OLSON #### [facility] [place] [facility] [address] [place] [address] Dr. Hardeep Rivera T3U 34.0 % Normal 30.0-39.0 [facility] Comment on above: Performed By: #### Deedee PINON UMICRO #### [facility] [place] [facility] [address] [place] [address] Dr. Hardeep Rivera T4 [Mass/Vol] 10.00 ug/dL Normal 4.80-13.90 [facility] Comment on above: Performed By: #### Deedee PINON, UMICRO #### [facility] [place] [facility] [address] [place] [address] Dr. Hardeep Rivera PROF 14(COMP METB)on 023 Albumin [Mass/Vol] 3.8 g/dL Normal 3.4-5.0 [facility] Comment on above: Performed By: #### Deedee PINON UMICRO #### [facility] [place] [facility] [address] [place] [address] Dr. Hardeep Rivera Albumin/Globulin [Mass ratio] 1.1 {ratio} Normal [facility] Comment on above: Performed By: #### Deedee PINON UMICRO #### [facility] [place] [facility] [address] [place] [address] Dr. Hardeep Rivera ALP [Catalytic activity/Vol] 192 U/L Critically high 46-116 [facility] Comment on above: Performed By: #### Deedee PINON, UMICRO #### [facility] [place] [facility] [address] [place] [address] Dr. Hardeep Rivera ALT [Catalytic activity/Vol] 22 U/L Normal 14-59 [facility] [place] [facility] Comment on above: Performed By: #### Deedee PINON, UMICRO #### [facility] [place] [facility] [address] [place] [address] Dr. Hardeep Rivera Anion gap [Moles/Vol] 11.4 mmol/L Normal [facility] Comment on above: Performed By: #### Deedee PINON, UMICRO #### [facility] [place] [facility] [address] [place] [address] Dr. Hardeep Rivera AST [Catalytic activity/Vol] 22 U/L Normal 15-37 [facility] Comment on above: Performed By: #### HARI OLSONRO #### [facility] [place] [facility] [address] [address] [address] Hardeep Rivera Bilirubin [Mass/Vol] 0.5 mg/dL Normal 0.2-1.0 [facility] Comment on above: Performed By: #### HARI OLSONRO #### [facility] [place] [facility] [address] [place] [address] Dr. Hardeep Rivera Calcium [Mass/Vol] 9.1 mg/dL Normal 8.5-10.1 [facility] Comment on above: Performed By: #### HARI OLSONRO #### [facility] [place] [facility] [address] [place] [address] Dr. Hardeep Rivera Chloride [Moles/Vol] 93 mmol/L Critically low 98-107 [facility] Comment on above: Performed By: #### HARI OLSONRO #### [facility] [place] [facility] [address] [place] [address] Dr. Hardeep Rivera CO2 [Moles/Vol] 30.8 mmol/L Normal 21.0-32.[address] [facility] Comment on above: Performed By: #### HARI OLSONRO #### [facility] [place] [facility] [address] [place] [address] Dr. Hardeep Rivera Creatinine [Mass/Vol] 1.49 mg/dL Critically high 0.55-1.02 [facility] Comment on above: Performed By: #### HARI OLSONRO #### [facility] [place] [facility] [address] [place] [address] Dr. Hardeep Rivera EGFR-AF GERMAN 41 mL/min/1.73m2 Critically low >=60 [facility] [place] [facility] Comment on above: Performed By: #### HARI OLSONRO #### [facility] [place] [facility] [address] [place] [address] Dr. Hardeep Rivera EGFR-NON AF GERMAN 34 mL/min/1.73m2 Critically low >=60 [facility] [place] [facility] Comment on above: Performed By: #### HARI OLSONRO #### [facility] [place] [facility] [address] [address] [address] Hardeep Rivera Globulin (S) [Mass/Vol] 3.4 g/dL Normal [facility] Comment on above: Performed By: #### Deedee PINON, UMICRO #### [facility] [place] [facility] [address] [address] [address] Hardeep Rivera Glucose [Mass/Vol] 116 mg/dL Critically high 74-106 T [facility] Comment on above: Performed By: #### E KATHRIN, UMICRO #### [facility] [place] [facility] [address] [address] [address] Hardeep Rivera Potassium [Moles/Vol] 4.2 mmol/L Normal 3.5-5.1 [facility] Comment on above: Performed By: #### Deedee PINON, UMICRO #### [facility] [place] [facility] [address] [place] [address] Dr. Hardeep Rivera Protein [Mass/Vol] 7.2 g/dL Normal 6.4-8.2 [facility] Comment on above: Performed By: #### Deedee PINON UMICRO #### [facility] [place] [facility] [address] [address] [address] Hardeep Rivera Sodium [Moles/Vol] 131 mmol/L Critically low 136-145 [facility] Comment on above: Performed By: #### Deedee PINON, UMICRO #### [facility] [place] [facility] [address] [address] [address] Hardeep Rivera Urea nitrogen [Mass/Vol] 38.0 mg/dL Critically high 7.0-18.0 [facility] Comment on above: Performed By: #### Deedee PINON UMICRO #### [facility] [place] [facility] [address] [address] [address] Hardeep Rivera Urea nitrogen/Creatinine [Mass ratio] 25.5 mg/mg Normal [facility] Comment on above: Performed By: #### Deedee PINON, UMICRO #### [facility] [place] [facility] [address] [address] [address] Hardeep Rivera TSHon 12-11-2022 TSH 6.407 uIU/mL Critically high 0.358-3.740 [facility] Comment on above: Performed By: #### E RANDALL PINON #### [facility] [place] [facility] [address] [place] [address] Dr. Hardeep Rivera Covid-19 PCR ([facility])on 11-01 SARS-CoV-2 (COVID-19) RNA ULICES+probe Ql (Unsp spec) Not detected Normal NOT DETECTED [facility] [place] [facility] Comment on above: Result Comment: This test is not yet approved or cleared by the [place] FDA. When there are no FDA-approved or cleared tests available, and other criteria are met, FDA can make tests available under an emergency access mechanism called an Emergency Use Authorization (EUA). The EUA for this test is supported by the [place] of Health and Human Service's (HHS's) declaration [...] consistent with SARS-CoV-2. Performed By: #### [facility] #### [facility] [place] [facility] [address] [place] [address] Dr. Hardeep Rivera INFLUENZA A AND B AGon 11-14 INFLUANEGH SEE BELOW Normal [facility] Comment on above: Result Comment: Nega tive for Flu A protein angiten. Infection due to Flu A cannot be ruled out. Flu A angiten in the sample may be below the detection limit of the test. Performed By: #### RANDALL OLSON #### [facility] [place] [facility] [address] [place] [address] Dr. Hardeep Rivera INFLUBNEG SEE BELOW Normal [facility] Comment on above: Result Comment: Nega tive for Flu B protein antigen. Infection due to Flu B cannot be ruled out. Flu B antigen in the sample may be below the detection limit of the test. Performed By: #### E RUR, UMICRO #### [facility] [place] [facility] [address] [place] [address] Dr. Hardeep Rivera INFLUENZA A AG Negative Normal NEGATIVE SEE COMMENT [facility] [place] [facility] Comment on above: Performed By: #### E RUR, UMICRO #### [facility] [place] [facility] [address] [place] [address] Dr. Hardeep Rivera INFLUENZA B AG Negative Normal NEGATIVE SEE COMMENT [facility] [place] [facility] Comment on above: Performed By: #### E RUR, UMICRO #### [facility] [place] [facility] [address] [place] [address] Dr. Hardeep Rivera INTERNAL CONTROLS Within Normal Limits Normal Wi thin Normal Limits [facility] [place] [facility] Comment on above: Performed By: #### E RUR, UMICRO #### [facility] [place] [facility] [address] [place] [address] Dr. Hardeep Rivera Covid-19 PCR ([facility])on SARS-CoV-2 (COVID-19) RNA ULICES+probe Ql (Unsp spec) Not detected Normal NOT DETECTED [facility] [place] [facility] Comment on above: Result Comment: This test is not yet approved or cleared by the [place] FDA. When there are no FDA-approved or cleared tests available, and other criteria are met, FDA can make tests available under an emergency access mechanism called an Emergency Use Authorization (EUA). The EUA for this test is supported by the [place] of Health and Human Service's (HHS's) declaration [...] SARS-CoV-2. Performed By: #### C VDTBH #### [facility] [place] [facility] [address] [place] [address] Dr. Hardeep Rivera INFLUENZA A AND B [facility] [place] 10-03 [facility] SEE BELOW Normal [facility] [place] [facility] Comment on above: Result Comment: Nega tive for Flu A protein angiten. Infection due to Flu A cannot be ruled out. Flu A angiten in the sample may be below the detection limit of the test. Performed By: #### Deedee PINON, UMICRO #### [facility] [place] [facility] [address] [place] [address] Dr. Hard[facility] BEL[facility] Normal [facility] Comment on above: Result Comment: Nega tive for Flu B protein antigen. Infection due to Flu B cannot be ruled out. Flu B antigen in the sample may be below the detection limit of the test. Performed By: #### Deedee PINON, UMICRO #### [facility] [place] [facility] [address] [place] [address] Dr. Hardeep Rivera INFLUENZA A AG Negative Normal NEGATIVE SEE COMMENT [facility] [place] [facility] Comment on above: Performed By: #### Deedee PINON, UMICRO #### [facility] [place] [facility] [address] [place] [address] Dr. Hardeep Rivera INFLUENZA B AG Negative Normal NEGATIVE SEE COMMENT [facility] Comment on above: Performed By: #### Deedee PINON, UMICRO #### [facility] [place] [facility] [address] [place] [address] Dr. Hardeep Rivera INTERNAL CONTROLS Within Normal Limits Normal Wi thin Normal Limits [facility] [place] [facility] Comment on above: Performed By: #### Deedee PINON, UMICRO #### [facility] [place] [facility] [address] [place] [address] Dr. Hardeep Clark 08-16-2022 NIK Telephone (JULIAN CONNELLY MAI) -- SYLVIA HANNA ([id number]) 1945 F Date Time Provider Department 08/16/22 SOY MCCANN CARD [facility] ISACC During your visit today, we [...] mg by mouth three times daily. - esfqgh-vozhgpoi-rvtilgb (CREON) 24,000-76,000 -120,000 unit cpDR Take 3 [...] by SOY MCCANN on 08/16/22 Normal [facility] AMYLASEon 08-04-2022 Amylase [Catalytic activity/Vol] 155 U/L Critically high 25-115 [facility] [place] [facility] Comment on above: Performed By: #### C MP, LIPA, BRITTNEY ####[facility] [place] [facility] [address] [address]DrLaura Rivera CBC AUTO DIFFon 08-04-2022 BASO # 0.0 103/ul Normal 0.0-0.1 [facility] [place] [facility] Comment on above: Performed By: #### C BC ####[facility] [place] [facility] [address] [address]DrLaura Rivera Basophils/100 WBC (Bld) 0.3 % Normal 0.2-2.0 [facility] Comment on above: Performed By: #### C BC ####[facility] [place] [facility] [address] [address]Dr. Hardeep Rivera EO # 0.1 103/ul Normal 0.0-0.7 [facility] [place] [facility] Comment on above: Performed By: #### C BC ####[facility] [place] [facility] [address] [address]Dr. Hardeep Rivera Eosinophils/100 WBC (Bld) 1.2 % Normal 0.9-7.0 [facility] [place] [facility] Comment on above: Performed By: #### C BC ####[facility] [place] [facility] [address] [address]Dr. Hardeep Rivera Erythrocyte distribution width (RBC) [Ratio] 12.2 % Normal 11.0-15.0 [facility] [place] [facility] Comment on above: Performed By: #### C BC ####[facility] [place] [facility] [address] [place], [place] [address]Dr. Hardeep Rivera Hematocrit (Bld) [Volume fraction] 38.3 % Normal 36.0-48.0 [facility] [place] [facility] Comment on above: Performed By: #### C BC ####[facility] [place] [facility] [address] [place], [place] [address]Dr. Hardeep Rivera Hemoglobin (Bld) [Mass/Vol] 12.9 g/dL Normal 12.0-16.0 [facility] [place] [facility] Comment on above: Performed By: #### C BC ####[facility] [place] [facility] [address] [place], [place] [address]Dr. Hardeep Rivera IG # 0.02 10e3/ul Normal 0.00-0.03 [facility] [place] [facility] Comment on above: Performed By: #### C BC ####[facility] [place] [facility] [address] [address]Dr. Hardeep Rivera IG % 0.3 % Normal 0.0-0.5 [facility] [place] [facility] Comment on above: Performed By: #### C BC ####[facility] [place] [facility] [address] [place], [place] [address]DrLaura Hardeep Rivera LYMPH # 1.1 103/ul Critically low 1.2-3.8 [facility] Comment on above: Performed By: #### C BC ####[facility] [place] [facility] [address] [place] [address]. Hadreep Rivera Lymphocytes/100 WBC (Bld) 16.6 % Critically low 20.5-60.0 [facility] [place] [facility] Comment on above: Performed By: #### C BC ####[facility] [place] [facility] [address] [address]Dr. Hardeep Rivera MANUAL DIFF REQ NO Normal [facility] Comment on above: Performed By: #### C BC ####[facility] [place] [facility] [address] [address]Dr. Hardeep Rivera MCH (RBC) [Entitic mass] 29.7 pg Normal 26.7-34.0 [facility] [place] [facility] Comment on above: Performed By: #### C BC ####[facility] [place] [facility] [address] [place], [place] [address]Dr. Hardeep Rivera MCHC (RBC) [Mass/Vol] 33.7 g/dL Normal 29.9-35.2 [facility] [place] [facility] Comment on above: Performed By: #### C BC ####[facility] [place] [facility] [address] [place], [place] [address]Dr. Hardeep Rivera MCV (RBC) [Entitic vol] 88.2 fL Normal 81.0-99.0 [facility] [place] [facility] Comment on above: Performed By: #### C BC ####[facility] [place] [facility] [address] [place], [place] [address]Dr. Hardeep Rivera MONO # 0.7 103/ul Normal 0.3-0.8 [facility] [place] [facility] Comment on above: Performed By: #### C BC ####[facility] [place] [facility] [address] [place], [place] [address]Dr. Hardeep Rivera Monocytes/100 WBC (Bld) 11.1 % Normal 1.7-12.0 [facility] [place] [facility] Comment on above: Performed By: #### C BC ####[facility] [place] [facility] [address] [place], [place] [address]DrLaura Rivera NEUT # 4.6 103/ul Normal 1.4-6.5 [facility] [place] [facility] Comment on above: Performed By: #### C BC ####[facility] [place] [facility] [address] [place], [place] [address]Dr. Hardeep Rviera Neutrophils/100 WBC (Bld) 70.5 % Normal 43.0-75.0 [facility] [place] [facility] Comment on above: Performed By: #### C BC ####[facility] [place] [facility] [address] [place], [place] [address]Tg. Hardeep Rivera Platelet mean volume (Bld) [Entitic vol] 9.4 fL Critically low 9.5-13.5 [facility] [place] [facility] Comment on above: Performed By: #### C BC ####[facility] [place] [facility] [address] [place], [place] [address]We. Hardeep Rivera PLT 203 103/ul Normal 150-450 [facility] [place] [facility] Comment on above: Performed By: #### C BC ####[facility] [place] [facility] [address] [address]Dr. Hardeep Rivera RBC 4.34 106/ul Normal 4.20-5.40 [facility] [place] [facility] Comment on above: Performed By: #### C BC ####[facility] [place] [facility] [address] [id number]. Hardeep iRvera WBC 6.5 103/ul Normal 4.0-11.0 [facility] [place] [facility] Comment on above: Performed By: #### C BC ####[facility] [place] [facility] [id number] Hardeep Rivera CT ABD/PELVIS WO CONon 08-04 [...] ALEXSANDER HARDING Date: 2022-08-04 20:12 Normal [facility] [place] [facility] Covid-19 PCR ([facility])on SARS-CoV-2 (COVID-19) RNA ULICES+probe Ql (Unsp spec) Not detected Normal NOT DETECTED [facility] [place] [facility] Comment on above: Result Comment: [...] for this test is supported by the [place] of Health and Human Service's declaration that [...] longer be used). Performed By: #### [facility] ####[facility] [place] [facility] [address] [address]Dr. Hardeep Rivera ER URINE PROFILEon 2 Bilirubin Ql (U) Negative Normal NEGATIVE [facility] Comment on above: Performed By: #### E RUR #### [facility] [place] [facility] [address] [place] [address] Dr. Hardeep Rivera Clarity (U) CLEAR Normal CLEAR [facility] [place] [facility] Comment on above: Performed By: #### E RUR #### [facility] [place] [facility] [address] [place] [address] Dr. Hardeep Rivera Color (U) LT. YELLOW Normal YELLOW [facility] Comment on above: Performed By: #### E RUR #### [facility] [place] [facility] [address] [place] [address] Dr. Hardeep Rivera ERUAHD A micrscopic examina tion will be performed if indicated. Normal [facility] [place] [facility] Comment on above: Performed By: #### E RUR #### [facility] [place] [facility] [address] [place] [address] Dr. Hardeep Rivera Glucose Ql (U) Negative Normal NEGATIVE [facility] Comment on above: Performed By: #### E RUR #### [facility] [place] [facility] [address] [place] [address] Dr. Hardeep Rivera Hemoglobin Ql (U) Negative Normal NEGATIVE [facility] Comment on above: Performed By: #### E RUR #### [facility] [place] [facility] [address] [place] [address] Dr. Hardeep Rivera Ketones Ql (U) Negative Normal NEGATIVE [facility] Comment on above: Performed By: #### E RUR #### [facility] [place] [facility] [address] [place] [address] Dr. Hardeep Rivera LEUKOCYTES Negative Normal NEGATIVE [facility] Comment on above: Performed By: #### E RUR #### [facility] [place] [facility] [address] [place] [address] Dr. Hardeep Rivera Nitrite Ql (U) Negative Normal NEGATIVE [facility] Comment on above: Performed By: #### E RUR #### [facility] [place] [facility] [address] [place] [address] Dr. Hardeep Rivera pH (U) 7.0 [pH] Normal 5-9 [facility] Comment on above: Performed By: #### E RUR #### [facility] [place] [facility] [address] [place] [address] Dr. Haredep Rivera SPEC GRAVITY <=1.005 Abnormal 1.005-<=1.0 25 [facility] Comment on above: Performed By: #### E RUR #### [facility] [place] [facility] [address] [place] [address] Dr. Hardeep Rivera UA PROTEIN Negative Normal NEGATIVE/ TRACE [facility] Comment on above: Performed By: #### E RUR #### [facility] [place] [facility] [address] [place] [address] Dr. Hardeep Rivera UR MICRO IND NOT INDICATED Normal [facility] Comment on above: Performed By: #### E RUR #### [facility] [place] [facility] [address] [place] [address] Dr. Hardeep Rivera Urobilinogen Qn (U) 0.2 {Kevon'U}/dL Normal 0.2 - 1. 0 [facility] Comment on above: Performed By: #### E RUR #### [facility] [place] [facility] [address] [place] [address] Dr. Hardeep Rivera LIPASEon 08-04-2022 Lipase [Catalytic activity/Vol] 1486.0 U/L Critically high 73.0-393.0 [facility] Comment on above: Performed By: #### C ABAD MORE BRITTNEY ####[facility] [place] [facility] [address] [address]Dr. Hardeep Rivera PROF 14(COMP METB)on 022 Albumin [Mass/Vol] 3.6 g/dL Normal 3.4-5.0 [facility] Comment on above: Performed By: #### C ABAD MORE, BRITTNEY ####[facility] [place] [facility] [address] [address]Dr. Hardeep Rivera Albumin/Globulin [Mass ratio] 1.3 {ratio} Normal [facility] Comment on above: Performed By: #### C ABAD MORE BRITTNEY ####[facility] [place] [facility] [address] [place], [place] [address]Dr. Hardeep Rivera ALP [Catalytic activity/Vol] 171 U/L Critically high 46-116 [facility] Comment on above: Performed By: #### C ABAD MORE, BRITTNEY ####[facility] [place] [facility] [address] [place], [place] [address]Dr. Hardeep Rivera ALT [Catalytic activity/Vol] 35 U/L Normal 14-59 [facility] [place] [facility] Comment on above: Performed By: #### C ABAD MORE BRITTNEY ####[facility] [place] [facility] [address] [address]Dr. Hardeep Rivera Anion gap [Moles/Vol] 11.4 mmol/L Normal [facility] Comment on above: Performed By: #### C ABAD MORE, BRITTNEY ####[facility] [place] [facility] [address] [address]Dr. Hardeep Rivera AST [Catalytic activity/Vol] 28 U/L Normal 15-37 [facility] Comment on above: Performed By: #### C ABAD MORE, BRITTNEY ####[facility] [place] [facility] [address] [address]Dr. Hardeep Rivera Bilirubin [Mass/Vol] 0.7 mg/dL Normal 0.2-1.0 [facility] [place] [facility] Comment on above: Performed By: #### C ABAD MORE, BRITTNEY ####[facility] [place] [facility] [address] [address]Dr. Hardeep Rivera Calcium [Mass/Vol] 8.4 mg/dL Critically low 8.5-10.1 [facility] [place] [facility] Comment on above: Performed By: #### C MP, LIPA, BRITTNEY ####[facility] [place] [facility] [address] [address]Dr. Hardeep Rivera Chloride [Moles/Vol] 100 mmol/L Normal 98-107 [facility] [place] [facility] Comment on above: Performed By: #### C MP, LIPA, BRITTNEY ####[facility] [place] [facility] [address] [address]Dr. Hardeep Rivera CO2 [Moles/Vol] 25.6 mmol/L Normal 21.0-32.[address] [facility] Comment on above: Performed By: #### C MP, LIPA, BRITTNEY ####[facility] [place] [facility] [address] [place], [place] [address]Dr. Hardeep Rivera Creatinine [Mass/Vol] 1.33 mg/dL Critically high 0.55-1.02 [facility] Comment on above: Performed By: #### C MP, LIPA, BRITTNEY ####[facility] [place] [facility] [address] [place], [place] [address]Dr. Hardeep Rivera EGFR-AF GERMAN 47 mL/min/1.73m2 Critically low >=60 [facility] [place] [facility] Comment on above: Performed By: #### C MP, LIPA, BRITTNEY ####[facility] [place] [facility] [address] [place], [place] [address]Dr. Hardeep Rivera EGFR-NON AF GERMAN 39 mL/min/1.73m2 Critically low >=60 [facility] [place] [facility] Comment on above: Performed By: #### C MP, LIPA, BRITTNEY ####[facility] [place] [facility] [address] [place], [place] [address]Dr. Hardeep Rivera Globulin (S) [Mass/Vol] 2.7 g/dL Normal [facility] Comment on above: Performed By: #### C MP, LIPA, BRITTNEY ####[facility] [place] [facility] [address] [place], [place] [address]Dr. Hardeep Rivera Glucose [Mass/Vol] 108 mg/dL Critically high 74-106 T [facility] Comment on above: Performed By: #### C ABAD MORE, BRITTNEY ####[facility] [place] [facility] [address] [address]Dr. Preethiarabella Rivera Potassium [Moles/Vol] 4.0 mmol/L Normal 3.5-5.1 [facility] Comment on above: Performed By: #### C ABAD MORE, BRITTNEY ####[facility] [place] [facility] [address] [address]Dr. Hardeep Rivera Protein [Mass/Vol] 6.3 g/dL Critically low 6.4-8.2 [facility] Comment on above: Performed By: #### C ABAD MORE, BRITTNEY ####[facility] [place] [facility] [address] [address]Dr. Hardeep Rivera Sodium [Moles/Vol] 133 mmol/L Critically low 136-145 [facility] Comment on above: Performed By: #### C ABAD MORE, BRITTNEY ####[facility] [place] [facility] [address] [address]Dr. Hardeep Rivera Urea nitrogen [Mass/Vol] 23.0 mg/dL Critically high 7.0-18.0 [facility] Comment on above: Performed By: #### C ABAD MORE, BRITTNEY ####[facility] [place] [facility] [address] [address]Dr. Hardeep Rivera Urea nitrogen/Creatinine [Mass ratio] 17.3 mg/mg Normal [facility] Comment on above: Performed By: #### C ABAD MORE, BRITTNEY ####[facility] [place] [facility] [id number] [address]Dr. Hardeep Rivera BOX TEST SENT OUTon 08-02-20 22 SENT TO REF LAB 08/02/2022 [facility] Comment on above: Performed By: #### E RUR #### [facility] [place] [facility] [address] [address] [address] Hardeep Rivera CBC AUTO DIFFon 08-02-2022 BASO # 0.0 103/ul Normal 0.0-0.1 [facility] Comment on above: Performed By: #### HARI OLSONRO #### [facility] [place] [facility] [address] [place] [address] Dr. Hardeep Rivera Basophils/100 WBC (Bld) 0.3 % Normal 0.2-2.0 [facility] Comment on above: Performed By: #### HARI OLSONRO #### [facility] [place] [facility] [address] [place] [address] Dr. Hardeep Rivera EO # 0.1 103/ul Normal 0.0-0.7 [facility] [place] [facility] Comment on above: Performed By: #### HARI OLSONRO #### [facility] [place] [facility] [address] [place] [address] Dr. Hardeep Rivera Eosinophils/100 WBC (Bld) 1.4 % Normal 0.9-7.0 [facility] [place] [facility] Comment on above: Performed By: #### HARI OLSONRO #### [facility] [place] [facility] [address] [place] [address] Dr. Hardeep Rivera Erythrocyte distribution width (RBC) [Ratio] 12.2 % Normal 11.0-15.0 [facility] Comment on above: Performed By: #### RANDALL OLSON #### [facility] [place] [facility] [address] [place] [address] Dr. Hardeep Rivera Hematocrit (Bld) [Volume fraction] 41.2 % Normal 36.0-48.0 [facility] Comment on above: Performed By: #### HARI OLSONRO #### [facility] [place] [facility] [address] [place] [address] Dr. Hardeep Rivera Hemoglobin (Bld) [Mass/Vol] 13.6 g/dL Normal 12.0-16.0 [facility] [place] [facility] Comment on above: Performed By: #### HARI OLSONRO #### [facility] [place] [facility] [address] [place] [address] Dr. Hardeep Rivera IG # 0.02 10e3/ul Normal 0.00-0.03 [facility] [place] [facility] Comment on above: Performed By: #### E RUR, UMICRO #### [facility] [place] [facility] [address] [address] [address] Hardeep Rivera IG % 0.3 % Normal 0.0-0.5 [facility] Comment on above: Performed By: #### E KATHRIN, UMICRO #### [facility] [place] [facility] [address] [address] [address] Hardeep Rivera LYMPH # 0.6 103/ul Critically low 1.2-3.8 [facility] Comment on above: Performed By: #### E KATHRNI, UMICRO #### [facility] [place] [facility] [address] [place] [address] Dr. Hardeep Rivera Lymphocytes/100 WBC (Bld) 8.9 % Critically low 20.5-60.0 [facility] Comment on above: Performed By: #### Deedee PINON, UMICRO #### [facility] [place] [facility] [address] [place] [address] Dr. Hardeep Rivera MANUAL DIFF REQ NO Normal [facility] [place] Comment on above: Performed By: #### Deedee PINON, UMICRO #### [facility] [place] [facility] [address] [place] [address] Dr. Hardeep Rivera MCH (RBC) [Entitic mass] 29.6 pg Normal 26.7-34.0 [facility] Comment on above: Performed By: #### Deedee PINON, UMICRO #### [facility] [place] [facility] [address] [place] [address] Dr. Hardeep Rivera MCHC (RBC) [Mass/Vol] 33.0 g/dL Normal 29.9-35.2 [facility] Comment on above: Performed By: #### E KATHRIN, UMICRO #### [facility] [place] [facility] [address] [place] [address] Dr. Hardeep Rivera MCV (RBC) [Entitic vol] 89.8 fL Normal 81.0-99.0 [facility] Comment on above: Performed By: #### Deedee PINON, UMICRO #### [facility] [place] [facility] [address] [place] [address] Dr. Hardeep Rivera MONO # 0.7 103/ul Normal 0.3-0.8 [facility] Comment on above: Performed By: #### RANDALL OLSON #### [facility] [place] [facility] [address] [place] [address] Dr. Hardeep Rivera Monocytes/100 WBC (Bld) 11.6 % Normal 1.7-12.0 [facility] [place] [facility] Comment on above: Performed By: #### RANDALL OLSON #### [facility] [place] [facility] [address] [place] [address] Dr. Hardeep Rivera NEUT # 5.0 103/ul Normal 1.4-6.5 [facility] [place] [facility] Comment on above: Performed By: #### RANDALL OLSON #### [facility] [place] [facility] [address] [place] [address] Dr. Hardeep Rivera Neutrophils/100 WBC (Bld) 77.5 % Critically high 43.0-75.0 [facility] [place] [facility] Comment on above: Performed By: #### RANDALL OLSON #### [facility] [place] [facility] [address] [place] [address] Dr. Hardeep Rivera Platelet mean volume (Bld) [Entitic vol] 9.4 fL Critically low 9.5-13.5 [facility] [place] [facility] Comment on above: Performed By: #### RANDALL OLSON #### [facility] [place] [facility] [address] [place] [address] Dr. Hardeep Rivera PLT 200 103/ul Normal 150-450 [facility] [place] [facility] Comment on above: Performed By: #### HARI OLSONRO #### [facility] [place] [facility] [address] [place] [address] Dr. Hardeep Rivera RBC 4.59 106/ul Normal 4.20-5.40 [facility] [place] [facility] Comment on above: Performed By: #### HARI OLSONRO #### [facility] [place] [facility] [address] [place] [address] Dr. Hardeep Rivera WBC 6.4 103/ul Normal 4.0-11.0 [facility] [place] [facility] Comment on above: Performed By: #### RANDALL OLSON #### [facility] [place] [facility] [address] [address] [address] Hardeep Clark 08-02-2022 ODETTEN Telephone (CARD CHF ISACC) -- SYLVIA HANNA ([id number]) 1945 F Date Time Provider Department 08/02/22 LOIDA MATHIAS CARD [facility] ISACC During your visit today, we [...] will be transferring her care. Loida Mathias APRN.PLANNER/SCHEDULER August 07, 2022 10:27 AM Allergies As [...] mg by mouth three times daily. - rgwkgb-dgatgivt-ntkyyaj (CREON) 24,000-76,000 -120,000 unit cpDR Take 3 [...] Status:Closed by LINDEN WEEMS on 08/02/22 Normal [facility] PROF CHEM 8 (BAS METB)on Anion gap [Moles/Vol] 12.2 mmol/L Normal [facility] Comment on above: Performed By: #### RANDALL OLSON #### [facility] [place] [facility] [address] [place] [address] Dr. Hardeep Rivera Calcium [Mass/Vol] 8.6 mg/dL Normal 8.5-10.1 [facility] Comment on above: Performed By: #### RANDALL OLSON #### [facility] [place] [facility] [address] [place] [address] Dr. Hardeep Rivera Chloride [Moles/Vol] 98 mmol/L Normal 98-107 [facility] Comment on above: Performed By: #### RANDALL OLSON #### [facility] [place] [facility] [address] [place] [address] Dr. Hardeep Rivera CO2 [Moles/Vol] 27.7 mmol/L Normal 21.0-32.[address] [facility] Comment on above: Performed By: #### RANDALL OLSON #### [facility] [place] [facility] [address] [place] [address] Dr. Hardeep Rivera Creatinine [Mass/Vol] 1.42 mg/dL Critically high 0.55-1.02 [facility] Comment on above: Performed By: #### RANDALL OLSON #### [facility] [place] [facility] [address] [place] [address] Dr. Hardeep Rivera EGFR-AF GERMAN 43 mL/min/1.73m2 Critically low >=60 [facility] [place] [facility] Comment on above: Performed By: #### RANDALL OLSON #### [facility] [place] [facility] [address] [place] [address] Dr. Hardeep Rivera EGFR-NON AF GERMAN 36 mL/min/1.73m2 Critically low >=60 [facility] Comment on above: Performed By: #### RANDALL OLSON #### [facility] [place] [facility] [address] [address] [address] Hardeep Rivera Glucose [Mass/Vol] 119 mg/dL Critically high 74-106 T [facility] Comment on above: Performed By: #### E KATHRIN, UMICRO #### [facility] [place] [facility] [address] [place] [address] Dr. Hardeep Rivera Potassium [Moles/Vol] 3.9 mmol/L Normal 3.5-5.1 [facility] Comment on above: Performed By: #### E COLLINSR, UMICRO #### [facility] [place] [facility] [address] [place] [address] Dr. Hardeep Rivera Sodium [Moles/Vol] 134 mmol/L Critically low 136-145 [facility] Comment on above: Performed By: #### Deedee PINON, UMICRO #### [facility] [place] [facility] [address] [place] [address] Dr. Hardeep Rivera Urea nitrogen [Mass/Vol] 21.0 mg/dL Critically high 7.0-18.0 [facility] Comment on above: Performed By: #### Deedee PINON, UMICRO #### [facility] [place] [facility] [address] [place] [address] Dr. Hardeep Rivera Urea nitrogen/Creatinine [Mass ratio] 14.8 mg/mg Normal [facility] Comment on above: Performed By: #### Deedee PINON, UMICRO #### [facility] [place] [facility] [address] [place] [address] Dr. Hardeep Rivera [facility] Tacrolimus (Bld) [Mass/Vol] 4.7 ng/mL Low 5.0-20.0 [facility] Comment on above: Order Comment: Speci [...] Test performed by chemiluminescent immunoassay using Sutton Prism Inspector. Performed By: #### 1 1253-2 ####[facility] LAB[facility]IA [id number] [id number] [place] Eduardo 07-05-2022 CNPN Telephone (CARD CHF ISACC) -- SYLVIA HANNA ([id number]) 1945 F Date Time Provider Department 07/05/22 SHO CROWLEY [facility] ISACC During your visit today, we [...] care with another team. Sho Crowley APRN, PLANNER/SCHEDULER Pager: [phone] July 05, 2022 10:42 AM Post Heart [...] transplant. No Dr Caldera: Rfl: TACROLIMUS/FK-506 BL [[id number]] Order #: [id number] FUTURE Prescriptions as of 07/05/2022 - tacrolimus [...] mg by mouth three times daily. - ufqoos-crdbylwj-pgjubbn (CREON) 24,000-76,000 -120,000 unit cpDR Take 3 [...] 09/02/2019 A (more content not included)... Normal [facility] BOX TEST SENT OUTon 07-03-20 22 SENT TO REF LAB 07/03/2022 Normal [facility] Comment on above: Performed By: #### E RURANDALL Chambers #### [facility] [place] [facility] [address] [place] [address] Dr. Hardeep Rivera CBC AUTO DIFFon 07-03-2022 BASO # 0.0 103/ul Normal 0.0-0.1 [facility] Comment on above: Performed By: #### C BC #### [facility] [place] [facility] [address] [place] [address] Dr. Hardeep Rivera Basophils/100 WBC (Bld) 0.3 % Normal 0.2-2.0 [facility] Comment on above: Performed By: #### C BC #### [facility] [place] [facility] [address] [place] [address] Dr. Hardeep Rivera EO # 0.1 103/ul Normal 0.0-0.7 [facility] Comment on above: Performed By: #### C BC #### [facility] [place] [facility] [address] [place] [address] Dr. Hardeep Rivera Eosinophils/100 WBC (Bld) 0.9 % Normal 0.9-7.0 [facility] Comment on above: Performed By: #### C BC #### [facility] [place] [facility] [address] [place] [address] Dr. Hardeep Rivera Erythrocyte distribution width (RBC) [Ratio] 12.2 % Normal 11.0-15.0 [facility] Comment on above: Performed By: #### C BC #### [facility] [place] [facility] [address] [place] [address] Dr. Hardeep Rivear Hematocrit (Bld) [Volume fraction] 42.3 % Normal 36.0-48.0 [facility] Comment on above: Performed By: #### C BC #### [facility] [place] [facility] [address] [address] [address] Hardeep Rivera Hemoglobin (Bld) [Mass/Vol] 14.0 g/dL Normal 12.0-16.0 [facility] Comment on above: Performed By: #### C BC #### [facility] [place] [facility] [address] [place] [address] Dr. Hardeep Rivera IG # 0.04 10e3/ul Critically high 0.00-0.03 [facility] Comment on above: Performed By: #### C BC #### [facility] [place] [facility] [address] [place] [address] Dr. Hardeep Rivera IG % 0.5 % Normal 0.0-0.5 [facility] Comment on above: Performed By: #### C BC #### [facility] [place] [facility] [address] [place] [address] Dr. Hardeep Rivera LYMPH # 0.8 103/ul Critically low 1.2-3.8 [facility] Comment on above: Performed By: #### C BC #### [facility] [place] [facility] [address] [place] [address] Dr. Hardeep Rivera Lymphocytes/100 WBC (Bld) 10.9 % Critically low 20.5-60.0 [facility] Comment on above: Performed By: #### C BC #### [facility] [place] [facility] [address] [place] [address] Dr. Hardeep Rivera MANUAL DIFF REQ NO Normal [facility] Comment on above: Performed By: #### C BC #### [facility] [place] [facility] [address] [place] [address] Dr. Hardeep Rivera MCH (RBC) [Entitic mass] 29.7 pg Normal 26.7-34.0 [facility] Comment on above: Performed By: #### C BC #### [facility] [place] [facility] [address] [place] [address] Dr. Hardeep Rivera MCHC (RBC) [Mass/Vol] 33.1 g/dL Normal 29.9-35.2 [facility] Comment on above: Performed By: #### C BC #### [facility] [place] [facility] [address] [address] [address] Hardeep Rivera MCV (RBC) [Entitic vol] 89.8 fL Normal 81.0-99.0 [facility] Comment on above: Performed By: #### C BC #### [facility] [place] [facility] [address] [address] [address] Hardeep Rivera MONO # 0.9 103/ul Critically high 0.3-0.8 [facility] Comment on above: Performed By: #### C BC #### [facility] [place] [facility] [address] [address] [address] Hardeep Rivera Monocytes/100 WBC (Bld) 11.1 % Normal 1.7-12.0 [facility] Comment on above: Performed By: #### C BC #### [facility] [place] [facility] [address] [address] [address] Hardeep Rivera NEUT # 5.8 103/ul Normal 1.4-6.5 [facility] Comment on above: Performed By: #### C BC #### [facility] [place] [facility] [address] [address] [address] Hardeep Rivera Neutrophils/100 WBC (Bld) 76.3 % Critically high 43.0-75.0 [facility] Comment on above: Performed By: #### C BC #### [facility] [place] [facility] [address] [address] [address] Hardeep Rivera Platelet mean volume (Bld) [Entitic vol] 9.5 fL Normal 9.5-13.5 [facility] Comment on above: Performed By: #### C BC #### [facility] [place] [facility] [address] [address] [address] Hardeep Rivera PLT 191 103/ul Normal 150-450 [facility] [place] [facility] Comment on above: Performed By: #### C BC #### [facility] [place] [facility] [address] [address] [address] Hardeep Rivera RBC 4.71 106/ul Normal 4.20-5.40 [facility] [place] [facility] Comment on above: Performed By: #### C BC #### [facility] [place] [facility] [address] [place], [place] [address] Dr. Hardeep Rivera WBC 7.6 103/ul Normal 4.0-11.0 [facility] Comment on above: Performed By: #### C BC #### [facility] [place] [facility] [address] [place], [place] [address] Dr. Hardeep Clark 07-03-2022 CNPN Telephone (CARD CHF ISACC) -- SYLVIA HANNA ([id number]) 1945 F Date Time Provider Department 07/03/22 SOY MCCANN CARD [facility] ISACC During your visit today, we recorded the following information about you: Linden Rolandcarlos 07/03/2022 1:02 PM Signed Patient had labs drawn 07/03/22, uploaded to [employer] docs. Allergies As of Date: 07/03/2022 Noted [...] mg by mouth three times daily. - jnnhrj-dlrqdfku-nadntnz (CREON) 24,000-76,000 -120,000 unit cpDR Take 3 [...] Status:Closed by LINDEN WEEMS on 07/03/22 Normal [facility] PROF CHEM 8 (BAS METB)on Anion gap [Moles/Vol] 12.9 mmol/L Normal [facility] Comment on above: Performed By: #### RANDALL OLSON #### [facility] [place] [facility] [address] [address] [address] Hardeep Rivera Calcium [Mass/Vol] 9.0 mg/dL Normal 8.5-10.1 [facility] Comment on above: Performed By: #### HARI OLSONRO #### [facility] [place] [facility] [address] [place] [address] Dr. Hardeep Rivera Chloride [Moles/Vol] 98 mmol/L Normal 98-107 [facility] Comment on above: Performed By: #### HARI OLSONRO #### [facility] [place] [facility] [address] [place] [address] Dr. Hardeep Rivera CO2 [Moles/Vol] 28.1 mmol/L Normal 21.0-32.0 [facility] Comment on above: Performed By: #### HARI OLSONRO #### [facility] [place] [facility] [address] [place] [address] Dr. Haredep Rivera Creatinine [Mass/Vol] 1.64 mg/dL Critically high 0.55-1.02 [facility] Comment on above: Performed By: #### RANDALL OLSON #### [facility] [place] [facility] [address] [place] [address] Dr. Hardeep Rivera EGFR-AF GERMAN 37 mL/min/1.73m2 Critically low >=60 [facility] Comment on above: Performed By: #### HARI OLSONRO #### [facility] [place] [facility] [address] [place] [address] Dr. Hardeep Rivera EGFR-NON AF GERMAN 30 mL/min/1.73m2 Critically low >=60 [facility] Comment on above: Performed By: #### HARI OLSONRO #### [facility] [place] [facility] [address] [place] [address] Dr. Hardeep Rivera Glucose [Mass/Vol] 114 mg/dL Critically high 74-106 [facility] Comment on above: Performed By: #### HARI OLSONRO #### [facility] [place] [facility] [address] [address] [address] Hardeep Rivera Potassium [Moles/Vol] 4.0 mmol/L Normal 3.5-5.1 [facility] Comment on above: Performed By: #### HARI OLSONRO #### [facility] [place] [facility] [address] [address] [address] Hardeep Rivera Sodium [Moles/Vol] 135 mmol/L Critically low 136-145 [facility] Comment on above: Performed By: #### HARI OLSONRO #### [facility] [place] [facility] [address] [address] [address] Hardeep Rivera Urea nitrogen [Mass/Vol] 24.0 mg/dL Critically high 7.0-18.0 [facility] Comment on above: Performed By: #### HARI OLSONRO #### [facility] [place] [facility] [address] [place] [address] Dr. Hardeep Rivera Urea nitrogen/Creatinine [Mass ratio] 14.6 mg/mg Normal [facility] Comment on above: Performed By: #### HARI OLSONRO #### [facility] [place] [facility] [address] [place] [address] Dr. Hardeep Rivera [facility] Tacrolimus (Bld) [Mass/Vol] 12.4 ng/mL Normal 5.0-20.0 [facility] Comment on above: Order Comment: Speci [...] Test performed by chemiluminescent immunoassay using [employer] Prism Inspector. Performed By: #### 1 1253-2 ####[facility] LABCLIA [id number] [address] OF [place] MG MAMM SCREEN 3D TRISHA CADon 05-28-2022 MG MAMM SCREEN 3D TRISHA CAD Patient: SYLVIA HANNA. Exam Date: 05/28/2022 : 1945 Gender:F Ordering : DR TAO DAVIS . Admission #: [id number] Family : Order #: [id number] CLICK HERE TO VIEW EXAM RADIOLOGY REPORT [...] Treatments None Family Cancers None LOCATION: [facility] [place] [facility] BREAST COMPOSITION: Heterogeneously dense,which may [...] Ibrahim MD on 05/28/2022 at 10:20 Normal [facility] 05-08-2022 [facility] Telephone (CARD [facility]) -- SYLVIA HANNA ([id number]) 1945 F Date Time Provider Department 05/08/22 LOIDA MATHIAS [facility] ISACC During your visit today, we recorded the following information about you: Linden Weems 05/08/2022 11:50 AM Signed Patient had labs drawn 05/07/22, uploaded to scanned docs. Linden Faustina Administrative Logistics Program Manager Loida Mathias APRN.CNP 05/08/2022 3:21 PM Signed [...] transplant. No Dr Ellerp: Rfl: TACROLIMUS/FK-506 BL [[id number]] Order #: [id number] FUTURE Prescriptions as of 05/08/2022 - tacrolimus [...] mg by mouth three times daily. - wcziyo-ykbrnnnj-dhoakgt (CREON) 24,000-76,000 -120,000 unit cpDR Take 3 [...] 05/19/2014 [facility] (more content not included)... Normal [facility] BOX TEST SENT OUTon 05-07-20 22 SENT TO REF LAB 05/07/2022 Normal [facility] Comment on above: Performed By: #### RANDALL OLSON #### [facility] [place] [facility] [address] [address] [address] Hardeep Rivera CBC AUTO DIFFon 05-07-2022 BASO # 0.0 103/ul Normal 0.0-0.1 [facility] Comment on above: Performed By: #### RANDALL OLSON #### [facility] [place] [facility] [address] [address] [address] Hardeep Rivera Basophils/100 WBC (Bld) 0.4 % Normal 0.2-2.0 [facility] Comment on above: Performed By: #### RANDALL OLSON #### [facility] [place] [facility] [address] [place] [address] Dr. Hardeep Rivera EO # 0.1 103/ul Normal 0.0-0.7 [facility] [place] [facility] Comment on above: Performed By: #### RANDALL OLSON #### [facility] [place] [facility] [address] [place] [address] Dr. Hardeep Rivera Eosinophils/100 WBC (Bld) 1.0 % Normal 0.9-7.0 [facility] [place] [facility] Comment on above: Performed By: #### RANDALL OLSON #### [facility] [place] [facility] [address] [place] [address] Dr. Hardeep Rivera Erythrocyte distribution width (RBC) [Ratio] 12.6 % Normal 11.0-15.0 [facility] Comment on above: Performed By: #### RANDALL OLSON #### [facility] [place] [facility] [address] [place] [address] Dr. Hardeep Rivera Hematocrit (Bld) [Volume fraction] 44.0 % Normal 36.0-48.0 [facility] [place] [facility] Comment on above: Performed By: #### RANDALL OLSON #### [facility] [place] [facility] [address] [place] [address] Dr. Hardeep Rivera Hemoglobin (Bld) [Mass/Vol] 14.0 g/dL Normal 12.0-16.0 [facility] [place] [facility] Comment on above: Performed By: #### HARI OLSONRO #### [facility] [place] [facility] [address] [place] [address] Dr. Hardeep Rivera IG # 0.02 10e3/ul Normal 0.00-0.03 [facility] [place] [facility] Comment on above: Performed By: #### HARI OLSONRO #### [facility] [place] [facility] [address] [place] [address] Dr. Hardeep Rivera IG % 0.3 % Normal 0.0-0.5 [facility] [place] [facility] Comment on above: Performed By: #### HARI OLSONRO #### [facility] [place] [facility] [address] [place] [address] Dr. Hardeep Rivera LYMPH # 0.6 103/ul Critically low 1.2-3.8 [facility] Comment on above: Performed By: #### E RUR, UMICRO #### [facility] [place] [facility] [address] [place] [address] Dr. Hardeep Rivera Lymphocytes/100 WBC (Bld) 8.2 % Critically low 20.5-60.0 [facility] Comment on above: Performed By: #### E RUR, UMICRO #### [facility] [place] [facility] [address] [place] [address] Dr. Hardeep Rivera MANUAL DIFF REQ NO Normal [facility] Comment on above: Performed By: #### E RUTrish, UMICRO #### [facility] [place] [facility] [address] [place] [address] Dr. Hardeep Rivera MCH (RBC) [Entitic mass] 29.4 pg Normal 26.7-34.0 [facility] Comment on above: Performed By: #### Deedee PINON UMICRO #### [facility] [place] [facility] [address] [place] [address] Dr. Hardeep Rivera MCHC (RBC) [Mass/Vol] 31.8 g/dL Normal 29.9-35.2 [facility] Comment on above: Performed By: #### E KATHRIN, UMICRO #### [facility] [place] [facility] [address] [place] [address] Dr. Hardeep Rivera MCV (RBC) [Entitic vol] 92.2 fL Normal 81.0-99.0 [facility] Comment on above: Performed By: #### Deedee PINON, UMICRO #### [facility] [place] [facility] [address] [place] [address] Dr. Hardeep Rivera MONO # 0.8 103/ul Normal 0.3-0.8 [facility] Comment on above: Performed By: #### E RUR, UMICRO #### [facility] [place] [facility] [address] [place] [address] Dr. Hardeep Rivera Monocytes/100 WBC (Bld) 9.6 % Normal 1.7-12.0 [facility] [place] [facility] Comment on above: Performed By: #### RANDALL OLSON #### [facility] [place] [facility] [address] [place] [address] Dr. Hardeep Rivera NEUT # 6.3 103/ul Normal 1.4-6.5 [facility] Comment on above: Performed By: #### RANDALL OLSON #### [facility] [place] [facility] [address] [place] [address] Dr. Hardeep Rivera Neutrophils/100 WBC (Bld) 80.5 % Critically high 43.0-75.0 [facility] [place] [facility] Comment on above: Performed By: #### RANDALL OLSON #### [facility] [place] [facility] [address] [place] [address] Dr. Hardeep Rivera Platelet mean volume (Bld) [Entitic vol] 10.1 fL Normal 9.5-13.5 [facility] Comment on above: Performed By: #### RANDALL OLSON #### [facility] [place] [facility] [address] [place] [address] Dr. Hardeep Rivera PLT 188 103/ul Normal 150-450 [facility] Comment on above: Performed By: #### RANDALL OLSON #### [facility] [place] [facility] [address] [place] [address] Dr. Hardeep Rivera RBC 4.77 106/ul Normal 4.20-5.40 [facility] [place] [facility] Comment on above: Performed By: #### RANDALL OLSON #### [facility] [place] [facility] [address] [place] [address] Dr. Hardeep Rivera WBC 7.8 103/ul Normal 4.0-11.0 [facility] [place] [facility] Comment on above: Performed By: #### RANDALL OLSON #### [facility] [place] [facility] [address] [place] [address] Dr. Hardeep Rivera PROF CHEM 8 (BAS METB)on Anion gap [Moles/Vol] 11.9 mmol/L Normal [facility] Comment on above: Performed By: #### RANDALL OLSON #### [facility] [place] [facility] [address] [place] [address] Dr. Hardeep Rivera Calcium [Mass/Vol] 8.7 mg/dL Normal 8.5-10.1 [facility] Comment on above: Performed By: #### E KATHRIN UMICRO #### [facility] [place] [facility] [address] [place] [address] Dr. Hardeep Rivera Chloride [Moles/Vol] 99 mmol/L Normal 98-107 [facility] Comment on above: Performed By: #### E KATHRIN UMICRO #### [facility] [place] [facility] [address] [place] [address] Dr. Hardeep Rivera CO2 [Moles/Vol] 27.1 mmol/L Normal 21.0-32.0 [facility] Comment on above: Performed By: #### Deedee PINON UMICRO #### [facility] [place] [facility] [address] [place] [address] Dr. Hardeep Rivera Creatinine [Mass/Vol] 1.62 mg/dL Critically high 0.55-1.02 [facility] Comment on above: Performed By: #### Deedee PINON UMICRO #### [facility] [place] [facility] [address] [place] [address] Dr. Hardeep Rivera EGFR-AF GERMAN 37 mL/min/1.73m2 Critically low >=60 [facility] Comment on above: Performed By: #### Deedee PINON UMICRO #### [facility] [place] [facility] [address] [place] [address] Dr. Hardeep Rivera EGFR-NON AF GERMAN 31 mL/min/1.73m2 Critically low >=60 [facility] Comment on above: Performed By: #### Deedee PINON UMICRO #### [facility] [place] [facility] [address] [place] [address] Dr. Hardeep Rivera Glucose [Mass/Vol] 73 mg/dL Critically low 74-106 [facility] Comment on above: Performed By: #### Deedee PINON UMICRO #### [facility] [place] [facility] [address] [place] [address] Dr. Hardeep Rivera Potassium [Moles/Vol] 4.0 mmol/L Normal 3.5-5.1 [facility] Comment on above: Performed By: #### RANDALL OLSON #### [facility] [place] [facility] [address] [place] [address] Dr. Hardeep Rivera Sodium [Moles/Vol] 134 mmol/L Critically low 136-145 [facility] Comment on above: Performed By: #### RANDALL OLSON #### [facility] [place] [facility] [address] [place] [address] Dr. Hardeep Rivera Urea nitrogen [Mass/Vol] 33.0 mg/dL Critically high 7.0-18.0 [facility] Comment on above: Performed By: #### RANDALL OLSON #### [facility] [place] [facility] [address] [place] [address] Dr. Hardeep Rivera Urea nitrogen/Creatinine [Mass ratio] 20.4 mg/mg Normal [facility] Comment on above: Performed By: #### RANDALL OLSON #### [facility] [place] [facility] [address] [place] [address] Dr. Hardeep Rivera TACROLIMUS/FK-506 BLon 05-07 Tacrolimus (Bld) [Mass/Vol] 3.4 ng/mL Low 5.0-20.0 [facility] Comment on above: Order Comment: Speci [...] Test performed by chemiluminescent immunoassay using Sutton Prism Inspector. Performed By: #### F K506 ####[facility] [id number] [address] [place] CNPMary Kay 05-03-2022 CNPN Telephone (CARD CHF ISACC) -- SYLVIA HANNA ([id number]) 1945 F Date Time Provider Department 05/03/22 SHO CROWLEY [facility] During your visit today, we recorded the following information about you: Sho Crowley APRN.PLANNER/SCHEDULER 05/03/2022 2:58 PM Signed received phone call from [facility] Cardiology group requesting patient's Tacrolimus levels from 04/24. Faxed results to [phone]. Allergies As of Date: 05/03/2022 Noted Allergy [...] mg by mouth three times daily. - kbbjsk-mawikufh-uwvrqpg (CREON) 24,000-76,000 -120,000 unit cpDR Take 3 [...] Status:Closed by SHO CROWLEY on 05/03/22 Normal [facility] BOX TEST SENT OUTon 04-24-20 SENT TO REF LAB 04/24/2022 Normal [facility] Comment on above: Performed By: #### RANDALL OLSON #### [facility] [place] [facility] [address] [place] [address] Dr. Hardeep Clark 04-24-2022 ODETTEN Telephone (CARD CHF ISACC) -- SYLVIA HANNA ([id number]) 1945 F Date Time Provider Department 04/24/22 LOIDA MATHIAS [facility] During your visit today, we recorded the following information about you: Linden Weems 04/24/2022 1:31 PM Signed Patient left message that she had labs drawn today. Linden Weems Administrative Logistics Program Manager Post Heart Transplant J3-4 Loida Mathias APRN.CNP 04/26/2022 11:25 AM Signed Received FK level 4.5, drawn 04/24 My chart message sent to patient. Advised to remain on current dose and keep our office updated re: her plans for post transplant follow up. Loida Mathias APRN.PLANNER/SCHEDULER April 26, 2022 11:24 AM Component Latest [...] mg by mouth three times daily. - bjzngk-dhpqqzqa-bwmfrsu (CREON) 24,000-76,000 -120,000 unit cpDR Take 3 [...] Status:Closed by LINDEN WEEMS on 04/24/22 Normal [facility] TACROLIMUS/FK-506 BLon 04-24 Tacrolimus (Bld) [Mass/Vol] 4.5 ng/mL Low 5.0-20.0 [facility] Comment on above: Order Comment: Speci [...] situation. Test performed by chemiluminescent immunoassay using [employer]. Performed By: #### F K506 ####[facility] LABCLIA [id number] [place] [address] [place] FK506 (TACROLIMUS) WHOLE BLO ODon 04-11-2022 Tacrolimus (FK506), Blood 7.3 ng/mL Normal 2.0-20.0 [facility] Comment on above: Result Comment: Trou gh (immediately following transplant) 15.0 . Trough (steady state, 2 weeks or more after transplant): 3.0 - 8.0 . Performed by LC-MS/MS technology. Performed By: #### RANDALL OLSON #### [facility] [place] [facility] [address] [place] [address] Dr. Hardeep Rivera BOX TEST SENT OUTon 04-09-20 22 SENT TO REF LAB 04/09/2022 Normal [facility] Comment on above: Performed By: #### RANDALL OLSON #### [facility] [place] [facility] [address] [address] [address] Hardeep Rivera CBC AUTO DIFFon 04-09-2022 BASO # 0.0 103/ul Normal 0.0-0.1 [facility] Comment on above: Performed By: #### RANDALL OLSON #### [facility] [place] [facility] [address] [place] [address] Dr. Hardeep iRvera Basophils/100 WBC (Bld) 0.1 % Critically low 0.2-2.0 [facility] Comment on above: Performed By: #### RANDALL OLSON #### [facility] [place] [facility] [address] [place] [address] Dr. Hardeep Rivera EO # 0.1 103/ul Normal 0.0-0.7 [facility] Comment on above: Performed By: #### RANDALL OLSON #### [facility] [place] [facility] [address] [place] [address] Dr. Hardeep Rivera Eosinophils/100 WBC (Bld) 1.2 % Normal 0.9-7.0 [facility] Comment on above: Performed By: #### RANDALL OLSON #### [facility] [place] [facility] [address] [place] [address] Dr. Hardeep Rivera Erythrocyte distribution width (RBC) [Ratio] 12.6 % Normal 11.0-15.0 [facility] Comment on above: Performed By: #### RANDALL OLSON #### [facility] [place] [facility] [address] [place] [address] Dr. Hardeep Rivera Hematocrit (Bld) [Volume fraction] 44.1 % Normal 36.0-48.0 [facility] [place] [facility] Comment on above: Performed By: #### RANDALL OLSON #### [facility] [place] [facility] [address] [place] [address] Dr. Hardeep Rivera Hemoglobin (Bld) [Mass/Vol] 14.1 g/dL Normal 12.0-16.0 [facility] [place] [facility] Comment on above: Performed By: #### RANDALL OLSON #### [facility] [place] [facility] [address] [place] [address] Dr. Hardeep Rivera IG # 0.02 10e3/ul Normal 0.00-0.03 [facility] [place] [facility] Comment on above: Performed By: #### RANDALL OLSON #### [facility] [place] [facility] [address] [place] [address] Dr. Hardeep Rivera IG % 0.3 % Normal 0.0-0.5 [facility] Comment on above: Performed By: #### RANDALL OLSON #### [facility] [place] [facility] [address] [place] [address] Dr. Hardeep Rivera LYMPH # 0.7 103/ul Critically low 1.2-3.8 [facility] Comment on above: Performed By: #### AKSHAT OLSONICRO #### [facility] [place] [facility] [address] [place] [address] Dr. Hardeep Rivera Lymphocytes/100 WBC (Bld) 10.8 % Critically low 20.5-60.0 [facility] [place] [facility] Comment on above: Performed By: #### AKSHAT OLSONICRO #### [facility] [place] [facility] [address] [place] [address] Dr. Hardeep Rivera MANUAL DIFF REQ NO Normal [facility] Comment on above: Performed By: #### AKSHAT OLSONICRO #### [facility] [place] [facility] [address] [place] [address] Dr. Hardeep Rivera MCH (RBC) [Entitic mass] 29.3 pg Normal 26.7-34.0 [facility] [place] [facility] Comment on above: Performed By: #### AKSHAT OLSONICRO #### [facility] [place] [facility] [address] [place] [address] Dr. Hardeep Rivera MCHC (RBC) [Mass/Vol] 32.0 g/dL Normal 29.9-35.2 [facility] [place] [facility] Comment on above: Performed By: #### Deedee PINON UMICRO #### [facility] [place] [facility] [address] [place] [address] Dr. Hardeep Rivera MCV (RBC) [Entitic vol] 91.7 fL Normal 81.0-99.0 [facility] [place] [facility] Comment on above: Performed By: #### Deedee PINON UMICRO #### [facility] [place] [facility] [address] [place] [address] Dr. Hardeep Rivera MONO # 0.7 103/ul Normal 0.3-0.8 [facility] [place] [facility] Comment on above: Performed By: #### Deedee PINON UMICRO #### [facility] [place] [facility] [address] [place] [address] Dr. Hardeep Rivera Monocytes/100 WBC (Bld) 10.8 % Normal 1.7-12.0 [facility] [place] [facility] Comment on above: Performed By: #### AKSHAT OLSONICRO #### [facility] [place] [facility] [address] [place] [address] Dr. Hardeep Rivera NEUT # 5.2 103/ul Normal 1.4-6.5 [facility] Comment on above: Performed By: #### Deedee PINON UMICRO #### [facility] [place] [facility] [address] [place] [address] Dr. Hardeep Rivera Neutrophils/100 WBC (Bld) 76.8 % Critically high 43.0-75.0 [facility] Comment on above: Performed By: #### Deedee PINON UMICRO #### [facility] [place] [facility] [address] [place] [address] Dr. Hardeep Rivera Platelet mean volume (Bld) [Entitic vol] 9.8 fL Normal 9.5-13.5 [facility] Comment on above: Performed By: #### Deedee PINON UMICRO #### [facility] [place] [facility] [address] [place] [address] Dr. Hardeep Rivera PLT 200 103/ul Normal 150-450 [facility] Comment on above: Performed By: #### HARI OLSONRO #### [facility] [place] [facility] [address] [place] [address] Dr. Hardeep Rivera RBC 4.81 106/ul Normal 4.20-5.40 [facility] Comment on above: Performed By: #### HARI OLSONRO #### [facility] [place] [facility] [address] [place] [address] Dr. Hardeep Rivera WBC 6.7 103/ul Normal 4.0-11.0 [facility] [place] [facility] Comment on above: Performed By: #### Deedee PINON UMICRO #### [facility] [place] [facility] [address] [place] [address] Dr. Hardeep Rivera PROF CHEM 8 (BAS METB)on Anion gap [Moles/Vol] 9.1 mmol/L Normal [facility] Comment on above: Performed By: #### Deedee PINON UMICRO #### [facility] [address] [place] [address] Dr. Hardeep Rivera Calcium [Mass/Vol] 8.3 mg/dL Critically low 8.5-10.1 [facility] Comment on above: Performed By: #### AKSHAT OLSONICRO #### [facility] [place] [facility] [address] [place] [address] Dr. Hardeep Rivera Chloride [Moles/Vol] 100 mmol/L Normal 98-107 [facility] Comment on above: Performed By: #### Deedee PINON UMICRO #### [facility] [address] [place] [address] Dr. Hardeep Rivera CO2 [Moles/Vol] 28.1 mmol/L Normal 21.0-32.0 [facility] Comment on above: Performed By: #### Deedee PINON UMICRO #### [facility] [place] [facility] [address] [place] [address] Dr. Hardeep Rivera Creatinine [Mass/Vol] 1.54 mg/dL Critically high 0.55-1.02 [facility] Comment on above: Performed By: #### Deedee PINON UMICRO #### [facility] [address] [place] [address] Dr. Hardeep Rivera EGFR-AF GERMAN 40 mL/min/1.73m2 Critically low >=60 [facility] Comment on above: Performed By: #### Deedee PINON UMICRO #### [facility] [address] [place] [address] Dr. Hardeep Rivera EGFR-NON AF GERMAN 33 mL/min/1.73m2 Critically low >=60 [facility] Comment on above: Performed By: #### Deedee PINON, UMICRO #### [facility] [address] [place] [address] Dr. Hardeep Rivera Glucose [Mass/Vol] 122 mg/dL Critically high 74-106 [facility] Comment on above: Performed By: #### Deedee PINON, UMICRO #### [facility] [address] [place] [address] Dr. Hardeep Rivera Potassium [Moles/Vol] 4.2 mmol/L Normal 3.5-5.1 [facility] Comment on above: Performed By: #### E RUR, UMICRO #### [facility] [address] [address] [address] Hardeep Rivera Sodium [Moles/Vol] 133 mmol/L Critically low 136-145 [facility] Comment on above: Performed By: #### E COLLINSR, UMICRO #### [facility] [address] [place] [address] Dr. Hardeep Rivera Urea nitrogen [Mass/Vol] 28.0 mg/dL Critically high 7.0-18.0 [facility] Comment on above: Performed By: #### E KATHRIN UMICRO #### [facility] [address] [address] [address] Hardeep Rivera Urea nitrogen/Creatinine [Mass ratio] 18.2 mg/mg Normal [facility] Comment on above: Performed By: #### E HARI PINONRO #### [facility] [address] [place] [address] Dr. Hardeep Rivera TACROLIMUS/FK-506 BLon 04-09 Tacrolimus (Bld) [Mass/Vol] 9.9 ng/mL Normal 5.0-20.0 [facility] Comment on above: Order Comment: Speci [...] Test performed by chemiluminescent immunoassay using Sutton Prism Inspector. Performed By: #### F K506 ####[facility] LABCLIA [id number] [address] [place] CNPMary Kay 10-10-2021 C[facility]N [facility] -- SYLVIA HANNA ([id number]) 1945 F Date Time Provider Department 10/10/21 LOIDA MATHIAS CARD [facility] During your visit today, we recorded the following information about you: Linden Weems 10/10/2021 11:57 AM Signed Patient had labs drawn today Linden Weems Administrative Logistics Program Manager Linden Weems 10/11/2021 10:57 AM Signed Labs uploaded to scanned docs. Linden Weems Administrative Logistics Program Manager Loida Mathias APRN.CNP 10/12/2021 12:28 PM Signed [...] transplant. No Dr ReddyDisp: Rfl: TACROLIMUS/FK-506 BL [[id number]] Order #: [id number] FUTURE Prescriptions as of 10/12/2021 - tacrolimus [...] mg by mouth three times daily. - ctudnq-cumccsmx-xutxquo (CREON) 24,000-76,000 -120,000 unit cpDR Take 3 [...] [J18.9] 11/29 (more content not included)... Normal [facility] Tacrolimus / [id number] 10-10- 021 Tacrolimus / FK506 10.1 ng/mL Normal 5.0-20.0 [facility] Comment on above: Result Comment: Thes [...] Test performed by chemiluminescent immunoassay using Sutton Prism Inspector. Performed By: #### F K506 ####[facility] [id number] [place], [place] [id number] Eduardo 09-13-2021 CNPBlake Telephone (CARD CHF ISACC) -- SYLVIA HANNA ([id number]) 1945 F Date Time Provider Department 09/13/21 ARELIS NEWSOME CARD [facility] ISACC During your visit today, we recorded the following information about you: Linden Faustina 09/13/2021 2:52 PM Signed S/w pt, due to transportation and financial constraints she is unable to come to [place] for appointments. Patient is working with her case picker to establish care with a local asset protection professional (had previously been followed by one in [place]).Dr Rice has agreed and plan going forward will be to do a phone visit with pt on 10/03 and she will follow up in the interim with her local Chef [employer] Owner. Sending pt mailers and lab order, she will get those done as soon as she can. Linden Faustina Administrative Logistics Program Manager Allergies As of Date: 09/13/2021 Noted Allergy [...] mg by mouth three times daily. - cbwnbi-ihrlqazd-kyqokij (CREON) 24,000-76,000 -120,000 unit cpDR Take 3 [...] by LINDEN WEEMS on 09/13/21 [facility] OBSOLETEon 09-12-2021 OBSOLETE Refill (CARD CHF ISACC ) -- SYLVIA HANNA ([id number]) 1945 F Date Time Provider Department 09/12/21 [...] mg by mouth three times daily. - vaoyxh-cdtxvnhk-nhsqfnm (CREON) 24,000-76,000 -120,000 unit cpDR Take 3 [...] [J18.1] 12/03/2014 09/02/2019 DREW (acute kidney injury) ([facility]) [N17.9] 12/03/2014 Anxiety disorder [F41.9] [...] Status:Closed by SANDRITA GUERRERO on 09/12/21 Normal [facility] Vital Signs Date Time Vital Sign Value Performing Clinician Dami charles 04-08-2023 06:45-0400 Diastolic blood pressure 76 mm[Hg] Richard Roby [facility] 04-08-2023 06:45-0400 Heart rate 59 /min Richard Roby [facility] 04-08-2023 06:45-0400 Hourly Rounding Richard Roby [facility] 04-08-2023 06:45-0400 Mean blood pressure 106 mm[Hg] Richard Roby [facility] 04-08-2023 06:45-0400 Respiratory rate 18 /min Richard Roby [facility] 04-08-2023 06:45-0400 SaO2% (BldA) [Mass fraction] 96 % Richard Roby [facility] 04-08-2023 06:45-0400 Systolic blood pressure 167 mm[Hg] Richard Roby [facility] 04-08-2023 05:30-0400 Diastolic blood pressure 88 mm[Hg] Richard Roby [facility] 04-08-2023 05:30-0400 Heart rate 52 /min Richard Roby [facility] 04-08-2023 05:30-0400 Hourly Rounding Richard Roby [facility] 04-08-2023 05:30-0400 Mean blood pressure 114 mm[Hg] Richard Roby [facility] 04-08-2023 05:30-0400 Respiratory rate 18 /min Richard Roby [facility] 04-08-2023 05:30-0400 SaO2% (BldA) [Mass fraction] 95 % Richard Roby [facility] 04-08-2023 05:30-0400 Systolic blood pressure 167 mm[Hg] Richard Roby [facility] 04-08-2023 04:39-0400 Diastolic blood pressure 90 mm[Hg] Richard Roby [facility] 04-08-2023 04:39-0400 Heart rate 56 /min Richard Roby [facility] 04-08-2023 04:39-0400 Hourly Rounding Richard Roby [facility] 04-08-2023 04:39-0400 Mean blood pressure 112 mm[Hg] Richard Roby [facility] 04-08-2023 04:39-0400 Respiratory rate 17 /min Richard Roby [facility] 04-08-2023 04:39-0400 SaO2% (BldA) [Mass fraction] 94 % Richard Roby [facility] 04-08-2023 04:39-0400 Systolic blood pressure 155 mm[Hg] Richard Roby [facility] 04-07-2023 21:48-0400 Respiratory rate 18 /min Richard Roby [facility] 04-07-2023 21:19-0400 Body temperature 98.06 [degF] Richard Roby [facility] 04-07-2023 21:19-0400 Heart rate 65 /min Richard Ca [facility] 04-07-2023 21:19-0400 Respiratory rate 19 /min Richard Ca [facility] Encounters Encounter Date Encounter Type Care Provider Facility Start: 12-28-2024 End: 12-28-2024 Refill Loida Mathias APRN.CNP Work Phone: [facility] Comment on above: Refill Request Start: 10-09-2024 End: 10-09-2024 ambulatory González Shanks Facility:[facility] Start: 10-09-2024 End: 10-09-2024 Patient encounter procedure González Shanks [facility] Start: 09-14-2024 End: 09-14-2024 ambulatory [facility] Start: 07-01-2024 End: 07-01-2024 ambulatory [facility] Start: 06-18-2024 End: 06-18-2024 ambulatory NON STAFF [facility] Work Phone: Start: 06-18-2024 End: 06-18-2024 Departed Referred [facility] Start: 02-03-2024 End: 02-03-2024 ambulatory [facility] Start: 11-12-2023 End: 11-12-2023 ambulatory [facility] Start: 04-07-2023 End: 04-08-2023 Emergency department patient visit Richard GoodmanLaura Ca [facility] Start: 03-05-2023 End: 03-05-2023 ambulatory [...] ROGERS Facility:[facility] Start: 09-08-2022 Refill Sandrita Guerrero APRN.PLANNER/SCHEDULER Work Phone: Cardiology Comment on above: Refill Request Start: 08-04-2022 End: 08-04-2022 ambulatory NANCY REYES . Facility:[facility] Start: 08-02-2022 Telephone encounter Loida Mathias APRN.PLANNER/SCHEDULER Work Phone: Cardiology Comment on above: Heart Transplant Fol low Up (Labs/) Start: 08-02-2022 End: 08-03-[address] TAO DAVIS . Facility:[facility] Start: 07-27-[address] TAO DAVIS . Facili ty:[facility] Start: 07-16-2022 End: 07-16-2022 Patient encounter procedure Eddie VERAS [facility] Start: 07-05-2022 Telephone encounter Sho Crowley APRN.PLANNER/SCHEDULER Work Phone: Cardiology Comment on above: Heart Transplant Fol low Up; Lab Meeting Start: 07-03-2022 Telephone encounter Soy Mccann RN [facility] Comment on above: Heart Transplant Fol low Up (labs) Start: 07-03-2022 End: 07-04-[address] TAO DAVIS . Facility:[facility] Start: 05-28-2022 End: 05-29-[address] TAO DAVIS . Facility:[facility] Start: 05-08-2022 Telephone encounter Loida Mathias APRN.PLANNER/SCHEDULER Work Phone: Cardiology Comment on above: Heart Transplant Fol low Up (labs) Start: 05-07-2022 End: 05-08-[address] TAO DAVIS . Facility:[facility] Start: 04-24-2022 Telephone encounter Loida Mathias APRN.PLANNER/SCHEDULER Work Phone: Cardiology Comment on above: Heart Transplant Fol low Up Start: 04-24-2022 End: 04-25-[address] TAO DAVIS . Facility:[facility]1 Start: 04-20-[address] TAO DAVIS . Facili ty:[facility]1 Start: 04-11-2022 ambulatory Loida fontaine APRN.PLANNER/SCHEDULER Work Phone: [facility] Start: 04-11-2022 Follow-up encounter Loida Mathias APRN.PLANNER/SCHEDULER Work Phone: Cardiology Comment on above: Heart Transplant Fol low Up (Labs) Start: 04-09-2022 End: 04-10-[address] TAO DAVIS . Facility:[facility]1 Start: 04-06-2022 Orders Only Loida kellyno DUSTY.PLANNER/SCHEDULER Work Phone: Cardiology Comment on above: Heart replaced by tr ansplant (HCC) (Primary Dx) Start: 04-04-2022 Refill Loida Kian fontaine DUSTY.PLANNER/SCHEDULER Work Phone: Cardiology Comment on above: Rx Refills Start: 10-03-2021 End: 10-03-2021 [facility] Procedures Date Procedure Procedure Detail Performing Clinician Start: 08-10-2013 H/O: heart recipient Heart transplan arianna Loida Bishopo DUSTY.PLANNER/SCHEDULER Work Phone: Start: 03-19-2006 End: 08-12-2013 H/O: heart recipient Heart replaced by transplant Loida Mathias MULE DEVELOPER.PLANNER/SCHEDULER Work Phone: H/O: heart recipient Heart transplanted ( [facility]) Loida Mathias MULE DEVELOPER.PLANNER/SCHEDULER Work Phone: H/O: heart recipient Heart repla nitish by transplant ([facility]) Loida Mathias MULE DEVELOPER.PLANNER/SCHEDULER Work Phone: H/O: heart recipient Heart transplanted ( HCC) Loida Mathias MULE DEVELOPER.PLANNER/SCHEDULER Work Phone: H/O: heart recipient Heart transplanted ( [facility]) Loida Mathias MULE DEVELOPER.PLANNER/SCHEDULER Work Phone: H/O: heart recipient Heart transplanted ( HCC) Sho Crowley MULE DEVELOPER.PLANNER/SCHEDULER Work Phone: H/O: heart recipient Hx of heart transplant( Confirmed ) Morgan RITO Plan of Treatment Date Care Activity Detail Author Start: 02-09-2031 Urine microalbumin profile DTaP,Tdap,Td Vaccine (2 - Tdap) [facility] Start: 12-02-2024 Advance Directive Discussion Advance Directive Discussion [facility] Start: 08-02-2024 Covid-19 Vaccine ( season) Covid-19 Vaccine ( season) [facility] Start: 08-02-2024 Influenza vaccination Influenza Vacc ine (#1) [facility] Start: 09-02-2022 Diabetes Screening Diabetes Screenin g [facility] Start: 08-02-2022 Influenza vaccination INFLUENZA (#1) [facility] Start: 07-19-2022 End: 09-18-2022 Tacrolimus [Mass/volume] in Blood TACROLIMUS/FK-506 BL Lab Routine Heart transplanted ([facility]) Expected: 07/19/2022 (Approximate), Expires: 09/18/2022 [facility] Work Phone: Comment on above: Expected: 07/19/2022 (Approximate), Expires: 09/18/2022 Start: 05-21-2022 End: 07-21-2022 TACROLIMUS/FK-506 BL TACROLIMUS/FK-506 BL Lab Routine Heart transplanted (HCC) Expected: 05/21/2022, Expires: 07/21/2022 [facility] Work Phone: Comment on above: Expected: 05/21/2022 , Expires: 07/21/2022 Start: 04-23-2022 End: 06-23-2022 TACROLIMUS/FK-506 BL TACROLIMUS/FK-506 BL Lab Routine Heart transplanted ([facility]) Expected: 04/23/2022, Expires: 06/23/2022 [facility] Work Phone: Comment on above: Expected: 04/23/2022 , Expires: 06/23/2022 Start: 04-09-2022 End: 06-09-2022 CBC W Auto Differential panel - Blood CBC + DIFF Lab Routine Heart replaced by transplant ([facility]) Expected: 04/09/2022, Expires: 06/09/2022 [facility] Work Phone: Comment on above: Expected: 04/09/2022 , Expires: 06/09/2022 Start: 04-09-2022 End: 06-09-2022 Comprehensive metabolic 2000 panel - Serum or Plasma COMP METABOLIC PANEL Lab Routine Heart replaced by transplant ([facility]) Expected: 04/09/2022, Expires: 06/09/2022 [facility] Work Phone: Comment on above: Expected: 04/09/2022 , Expires: 06/09/2022 Start: 04-09-2022 End: 04-06-2023 HEART/LUNG REC POST TX DSA HEART/LUNG REC POST TX DSA ALLOGEN Routine Heart replaced by transplant ([facility]) Expected: 04/09/2022, Expires: 04/06/2023 [facility] Work Phone: Comment on above: Expected: 04/09/2022 , Expires: 04/06/2023 Start: 04-09-2022 End: 06-09-2022 LIPID PANEL BASIC LIPID PANEL BASIC Lab Routine Heart replaced by transplant ([facility]) Expected: 04/09/2022, Expires: 06/09/2022 [facility] Work Phone: Comment on above: Expected: 04/09/2022 , Expires: 06/09/2022 Start: 04-09-2022 End: 06-09-2022 Magnesium [Mass/volume] in Serum or Plasma MAGNESIUM BLD Lab Routine Heart replaced by transplant ([facility]) Expected: 04/09/2022, Expires: 06/09/2022 [facility] Work Phone: Comment on above: Expected: 04/09/2022 , Expires: 06/09/2022 Start: 04-09-2022 End: 06-09-2022 TACROLIMUS/FK-506 BL TACROLIMUS/FK-506 BL Lab Routine Heart replaced by transplant ([facility]) Expected: 04/09/2022, Expires: 06/09/2022 [facility] Work Phone: Comment on above: Expected: 04/09/2022 , Expires: 06/09/2022 Start: 04-09-2022 End: 06-09-2022 URINALYSIS, DIPSTICK ONLY URINALYSIS, DIPSTICK ONLY Lab Routine Heart replaced by transplant ([facility]) Expected: 04/09/2022, Expires: 06/09/2022 [facility] Work Phone: Comment on above: Expected: 04/09/2022 , Expires: 06/09/2022 Start: 12-02-2021 ADVANCE DIRECTIVE DISCUSSION ADVANCE DIRECTIVE DISCUSSION [facility] Start: 09-26-2021 COVID-19 VACCINE (3 - Pfizer risk 4-dose series) COVID-19 VACCINE (3 - Pfizer risk 4-dose series) [facility] Start: 09-26-2021 COVID-19 VACCINE (3 - Pfizer risk series) COVID-19 VACCINE (3 - Pfizer risk series) [facility] Start: 03-04-2020 Hepatitis B surface antibody level LDL CHOLESTEROL [facility] Start: 2019 RSV Vaccine (1 - 1-d ose 75+ series) RSV Vaccine (1 - 1-dose 75+ series) [facility] Start: 06-14-2015 Hemoglobin A1c/Hemoglobin.total in Blood HBA1C [facility] Start: 11-01-2013 PNEUMOCOCCAL: 65+ (3 - PCV) PNEUMOCOCCAL: 65+ (3 - PCV) [facility] Start: 01-26-2010 [facility] Start: 1994 SHINGRIX VACCINE (1 of 2) SHINGRIX VACCINE (1 of 2) [facility] Start: 1963 SHINGRIX VACCINE (1 of 2) SHINGRIX VACCINE (1 of 2) [facility] Start: 1963 Urine microalbumin profile DTAP,TDAP,TD (1 - Tdap) [facility] Start: 1962 ANNUAL PCP TEAM SALES PLANNING COORDINATOR ESTRELLA DISEASE VISIT ANNUAL PCP TEAM CHRONIC DISEASE VISIT [facility] Start: 1962 Anxiety Screening Anxiety Screening [facility] Start: 1962 BP CONTROLLED (<130/80) BP CONTROLLE D (<130/80) [facility] Start: 1962 Depression Screening Depression Scre ening [facility] Start: 1954 3 comp foot exam completed DIABETIC FOOT EXAM [facility] Start: 1954 Hepatitis B screening URINE ALBUMIN:CREATININE RATIO [facility] Start: 1954 Hepatitis C antibody , confirmatory test DILATED RETINAL EXAM [facility] Start: 1950 PNEUMOCOCCAL: 65+ (1 - PCV) PNEUMOCOCCAL: 65+ (1 - PCV) [facility] Immunizations Immunization Date Immunization Notes Care Provider Valente araujo 09-28-2023 influenza virus vaccine, unspecified formulation González Shanks [facility] 05-20-2023 pneumococcal 20-matthew nt conjugate vaccine O' Doughty'sedgar VideoIQmamiCamerborn [facility] 07-14-2022 influenza virus vaccine, unspecified formulation RacquelGridcoedgar VideoIQstepan [facility] 06-05-2022 SARS-CoV-2 mRNA (qtvmtyssqlc-cnph-brnir se) vaccine Anthillz [facility] 08-29-2021 SARS-CoV-2 (COVID-19 ) mRNA BNT-162b2 vax Anthillz [facility] 08-02-2021 SARS-CoV-2 (COVID-19 ) mRNA BNT-162b2 vax Morgan SALAM [facility] 07-05-2021 influenza virus vaccine, unspecified formulation Morgan SALAM [facility] 09-29-2020 influenza, unspecifi ed formulation Morgan SALAM [facility] 07-24-2020 influenza virus vaccine, unspecified formulation Morgan SALAM [facility] 09-02-2017 influenza virus vaccine, unspecified formulation Morgan SALAM [facility] 08-07-2017 pneumococcal conjuga te vaccine, 13 valent Morgan SALAM [facility] 08-14-2016 influenza virus vaccine, unspecified formulation Morgan SALAM [facility] 09-29-2015 pneumococcal conjuga te vaccine, 13 valent Morgan SALAM [facility] 08-04-2015 influenza virus vaccine, unspecified formulation Morgan SALAM [facility] 09-15-2014 influenza virus vaccine, whole virus Loida Iammarino MULE DEVELOPER.PLANNER/SCHEDULER Work Phone: [facility] 09-15-2014 influenza, whole Morgan SALAM [facility] 11-01-2012 pneumococcal polysaccharide vaccine, 23 valent Loida Iammarino MULE DEVELOPER.PLANNER/SCHEDULER Work Phone: [facility] 12-28-2009 novel [id number], all formulations Loida Iammarino MULE DEVELOPER.PLANNER/SCHEDULER Work Phone: [facility] Work Phone: 08-19-2009 influenza virus vaccine, unspecified formulation Loida Iammarino MULE DEVELOPER.PLANNER/SCHEDULER Work Phone: [facility] 09-01-2006 influenza virus vaccine, unspecified formulation Loida Iammarino MULE DEVELOPER.PLANNER/SCHEDULER Work Phone: [facility] Work Phone: 09-01-2006 pneumococcal polysaccharide vaccine, 23 valent Loida Mathias MULE DEVELOPER.PLANNER/SCHEDULER Work Phone: [facility] Work Phone: NEGATED: Highlighted row has not occurred!07-12-2022 influenza virus vaccine, unspecified formulation Eddie VERAS [facility] Payers Date Payer Category Payer Self-pay 2022 Medicare UHC MEDICARE UHC DUAL COMPLETE HMO SNP [id number] 2022-Present [phone] [address] [place] [address] Medicare [id number] 2022 Medicare UHC MEDICARE UHC DUAL COMPLETE HMO SNP [id number] 2022-Present [phone] [address] [place] [address] Medicare [id number] 2020 Unknown [id number] 1959 Medicaid [id number] 1959 Medicare [id number] 1959 Self-pay [id number] 1959 Unknown [id number] 1944 Unknown [id number] [id number] 1944 Unknown [id number] 2.16.840.1.531838.3.579.2.593 1944 Unknown [id number] 2.16.840.1.308124.3.579.2.593 1944 Unknown [id number] 2.16.840.1.213092.3.579.2.593 1944 Unknown [id number] 2.16.840.1.938636.3.579.2.593 1944 Unknown [id number] 2.16.840.1.728554.3.579.2.593 1944 Unknown [id number] 2.16.840.1.097358.3.579.2.593 1944 Unknown [id number] 2.16.840.1.959944.3.579.2.593 1944 Unknown [id number] 2.16.840.1.147909.3.579.2.593 1944 Unknown [id number] 2.16.840.1.792115.3.579.2.593 1944 Unknown [id number] 2.16.840.1.901632.3.579.2.593 1944 Unknown [id number] 2.16.840.1.945719.3.579.2.593 1944 Unknown [id number] 2.16.840.1.492397.3.579.2.593 1944 Unknown [id number] 2.16.840.1.672813.3.579.2.593 1944 Unknown [id number] 2.16.840.1.397288.3.579.2.593 1944 Unknown [id number] 2.16.840.1.123573.3.579.2.593 1944 Unknown [id number] 2.16.840.1.709639.3.579.2.593 1944 Unknown [id number] 2.16.840.1.595490.3.579.2.593 1944 Unknown [id number] 2.16.840.1.271321.3.579.2.727 Unknown [id number] [id number]3 Social History Date Type Detail Facility Start: 05-13-2019 Tobacco smoking stat us NHIS Ex-smoker [facility] Work Phone: History of tobacco use Cigarette Smoker [facility] Work Phone: Start: 09-07-2019 Alcohol intake Current non-dr mat linker of alcohol (finding) [facility] Start: 1945 Sex Assigned At Not on file [facility] Start: 07-12-2022 Never smoked t obacco (finding) [facility] Never [facility] Start: 09-07-2019 End: 11-06-2020 Female [facility] History of tobacco use Current smoker [facility] Start: 05-13-2019 End: 11-06-2020 Cigarettes smoked current (pack per day) - Reported 0.3 [facility] Start: 05-13-2019 Tobacco use and exposure Smokeless tobacco non-user [facility] Start: 1945 Sex Assigned At Female F [facility] Functional Status Date Assessment Result Facility 04-07-2023 Functional Status N/A [facility] Clinical Notes 11-14-2017 to 09-14-2024 Note Date & Type Note Facility 09-14-2024 Note OR Cardiology - [facility] Subjective Sylvia Hanna is a [...] Alcohol use: Not Currently Drug use: Never [facility] Visit of 10/30/2021: Sylvia is seen [...] in 2007. She is followed by the [facility] cardiology service. She has had no [...] on 11/19/16. Similar (more content not included)... [facility] 07-01-2024 Note OR Cardiology - [facility] Subjective Sylvia Hanna is a 78 y.o. year old female patient being seen for follow up [facility] for syncope. Says she's been having [...] Alcohol use: Not Currently Drug use: Never [facility] Visit of 10/30/2021: Sylvia is seen [...] in 2007. She is followed by the [facility] cardiology service. She has had no [...] There is no (more content not included)... [facility] 02-03-2024 Note OR Cardiology - [facility] Subjective Sylvia Hanna is a 78 y.o. year old female patient being seen for follow up [facility]. She was seen as inpatient consult [...] in 2007. She is followed by the [facility] cardiology service. She has had no [...] the prior echocardiographi (more content not included)... [facility] 11-12-2023 Note OR Cardiology - [facility] Subjective Sylvia Hanna is a [...] in 2007. She is followed by the [facility] cardiology service. She has had no [...] Stress Testing (1 (more content not included)... [facility] 10-28-2023 Note [facility] 04-08-2023 Hospital Discharge instructions Patient Education [...] ?Adrenal gland problems. ?Metabolic conditions, such as [place]'s disease or syndrome of inappropriate antidiuresis (SIAD). [...] improvement. Follow these instructions at home: Take vpjh-gec-unmmkla and prescription medicines only as told by [...] provider. Document Revised: 05/29/2022 Document Reviewed: 05/29/2022 [employer] Patient Education 2022 [employer]. 04/08/2023 08:56:02 Nonspecific Chest Pain, Adult Nonspecific [...] Follow these instructions at home: Medicines Take ldel-ybc-fbfixcq and prescription medicines only as told by [...] provider. Document Revised: 02/01/2022 Document Reviewed: 02/01/2022 [employer] Patient Education 2022 [employer]. Follow Up Care 04/07/2023 21:19:10 With:SCOT ROGERS Address: [facility] [place] [address]- [phone] Business (1) When:Within 3 Day(s) [facility] 04-07-2023 Evaluation + Plan note [...] Troponin 9 Hr. XR Chest Single View [facility]09-01-2022 Miscellaneous Notes* Telephone Encounter - Linden Weems - 08/02/2022 1:41 PM EDT Patient had labs drawn 08/02/22, uploaded to scanned docs. [facility] Miscellaneous Notes* Telephone Encounter - Sho [...] another team. Sho Crowley APRN, CNP Pager: [phone] July 05, 2022 10:42 AM Post Heart Transplant Nurse Practitioner documented [facility] Miscellaneous Notes* Telephone Encounter - Linden Weems - 07/03/2022 12:59 PM EDT Patient had labs drawn 07/03/22, uploaded to scanned docs. [facility] Miscellaneous Notes* Addendum Note - Loida [...] uploaded to scanned docs. Linden Weems Administrative Logistics Program Manager documented in [facility]05-[facility]22 Miscellaneous Notes* Telephone Encounter - Linden Weems - 04/24/2022 1:31 PM EDT Patient left message that she had labs drawn today. Linden rOtizsherita Administrative Logistics Program Manager Post Heart Transplant J3-4 documented in this encounterGreen [facility]05-11-2022 NoteHNO ID: [id number] Author: Loida Mathias APRN.CNP Service: ? Author [...] reports she can no longer travel to [place]. She does not have a ride, she has no family or friends to lean on. She has made an appt with a local [employer]. She will ask him if there are any transplant doctors or centers near her and potentially need to transfer her care. She will keep us updated. Loida Mathias APRN.CNP April 12, 2022 2:25 [facility]05-11-[facility] History of Present illness Narrative* [...] reports she can no longer travel to [place]. Shedoes not have a ride, she has no family or friends to lean on. She has made an appt with a local [employer]. She will ask him if there are any transplant doctors or centers near her and potentiallyneed to transfer her care. She will keep us updated. Loida Mathias APRN.CNP April 12, 2022 2:25 PM documented in this encounterGreen [facility]11-08-2021 NoteHNO ID: [id number] Author: Loida Mathias APRN.CNP Service: ? Author [...] Loida Mathias APRN.CNP October 09, 2021 4:10 [facility]11-02-2021 NoteHNO ID: [id number] Author: Nicolette Rice MD Service: ? Author Type: Physician Type: Progress Notes Filed: 10/03/2021 4:12 PM Note Text: Heart, Vascular AND Thoracic [place] Department of Cardiovascular Medicine TELEPHONE VISIT PROGRESS [...] in ~6 months. Will see a local asset protection professional at the end of the month. Data Reviewed: No new labs Assessment: She is doing well clinically and her BP is controlled. ? Plan: 1. She was instructed to continue the current medical program. 2. RTC per post-transplant protocol. Total Time Spent: 21-30 minutes Nicolette Rice [facility]12-14-2017 History of Past illness Narrative* Problem [...] of this encounter (statuses as of 04/05/2022) [facility] History of Past illness Narrative* Problem [...] of this encounter (statuses as of 04/06/2022) [facility] History of Past illness Narrative* Problem [...] of this encounter (statuses as of 04/12/2022) [facility] History of Past illness Narrative* Problem [...] of this encounter (statuses as of 04/24/2022) [facility] History of Past illness Narrative* Problem [...] of this encounter (statuses as of 05/08/2022) [facility] of Past illness Narrative* Problem [...] of this encounter (statuses as of 07/03/2022) [facility] History of Past illness Narrative* Problem [...] of this encounter (statuses as of 07/05/2022) [facility] of Past illness Narrative* Problem [...] of this encounter (statuses as of 08/02/2022) [facility] History of Past illness Narrative* Problem [...] of this encounter (statuses as of 09/11/2022) [facility] Future Appointments Appointment Date:08/01/2022 01:50:00 PM Scheduled Provider: Location:[facility] Appointment Type:Surgery FT Diagnostic Tests Pending * CMV Antibody IgM 07/16/22 Future Scheduled Tests Laboratory* Fecal WBC Lactoferrin 07/12/22 * Giardia lamblia, Direct Detection EIA 07/12/22 * O & P Exam, Routine 07/12/22 * Clostridium difficile by PCR 07/12/22 * Enteric Panel by PCR 07/12/22 [facility] Diagnosis Heart transplanted (HCC) Heart replaced by transplant documented in this encounter [facility] note* Diagnosis Heart replaced by transplant (HCC)- Primary Heart replaced by transplant documented in this encounter [facility] note* Diagnosis Heart replaced by transplant (HCC)- Primary Heart replaced by transplant Heart transplanted (HCC) Heart replaced by transplant documented in this encounter [facility] note* Diagnosis Heart transplanted (HCC) Heart replaced by transplant documented in this encounter [facility] note* Diagnosis Heart transplanted (HCC) Heart replaced by transplant documented in this encounter [facility] noteNo assessment information availableAdena Health System Work Phone: Hospital course Narrative No data available for this section [facility] No data available for this section [facility] No data available for this section [facility] Advance Directives Documents on File Type Date Recorded Patient Room Maid Expl anation Advance Directive(s) 11/14/2017 5:44 AM Advance Directive(s) 01/02/2012 12:00 AM Advance Directive(s) 01/17/2007 12:00 AM Documents on File Type Date Recorded Patient Room Maid Expl anation Advance Directive(s) 01/02/2012 Advance Directive(s) [...] or prosecute any alcohol or drug abuse patient.[facility] HospitalIn the event this information is protected by the Federal Confidentiality of Alcohol and Drug Abuse Patient Records regulations: The Federal rules restrict any use of the information to criminally investigate or prosecute any alcohol or drug abuse patient.[facility] HospitalIn the event this information is protected by the Federal Confidentiality of Alcohol and Drug Abuse Patient Records regulations: The Federal rules restrict any use of the information to criminally investigate or prosecute any alcohol or drug abuse patient.[facility] HospitalIn the event this information is protected by the Federal Confidentiality of Alcohol and Drug Abuse Patient Records regulations: The Federal rules restrict any use of the information to criminally investigate or prosecute any alcohol or drug abuse patient.[facility] HospitalIn the event this information is protected by the Federal Confidentiality of Alcohol and Drug Abuse Patient Records regulations: The Federal rules restrict any use of the information to criminally investigate or prosecute any alcohol or drug abuse patient.[facility] HospitalIn the event this information is protected by the Federal Confidentiality of Alcohol and Drug Abuse Patient Records regulations: The Federal rules restrict any use of the information to criminally investigate or prosecute any alcohol or drug abuse patient.[facility] HospitalIn the event this information is protected by the Federal Confidentiality of Alcohol and Drug Abuse Patient Records regulations: The Federal rules restrict any use of the information to criminally investigate or prosecute any alcohol or drug abuse patient.[facility] HospitalIn the event this information is protected by the Federal Confidentiality of Alcohol and Drug Abuse Patient Records regulations: The Federal rules restrict any use of the information to criminally investigate or prosecute any alcohol or drug abuse patient.[facility] HospitalIn the event this information is protected by the Federal Confidentiality of Alcohol and Drug Abuse Patient Records regulations: The Federal rules restrict any use of the information to criminally investigate or prosecute any alcohol or drug abuse patient.[facility] HospitalIn the event this information is protected by the Federal Confidentiality of Alcohol and Drug Abuse Patient Records regulations: The Federal rules restrict any use of the information to criminally investigate or prosecute any alcohol or drug abuse patient.[facility] Reason for Visit (unrecogniz ed section and content) Reason Comments Rx Refills Reason Comments Heart Transplant Follow Up Labs Reason Comments Heart Transplant Follow Up Reason Comments Heart Transplant Follow Up labs Reason Comments Heart Transplant Follow Up Lab Meeting Reason Comments Refill Request Care Teams (unrecognized sec tion and content) Quality Control Head Relationship Specialty Start Date End Date Tao Davis MD [address] [id number] PCP - General Family Practice 05/13/19 Quality Control Head Relationship Specialty Start Date End Date Tao Davis MD [address] [place] [address] PCP - General Family Practice 05/13/19 Quality Control Head Relationship Specialty Start Date End Date Tao Davis MD [address] [place] [address] PCP - General Family Practice 05/13/19 Quality Control Head Relationship Specialty Start Date End Date Tao Davis MD [address] [place] [address] PCP - General Family Practice 05/13/19 Quality Control Head Relationship Specialty Start Date End Date Tao Davis MD [address] [place] [address] PCP - General Family Practice 05/13/19 Quality Control Head Relationship Specialty Start Date End Date Tao Davis MD [address] [place] [address] PCP - General Family Medicine 05/13/19 Team Status: Inactive Member Role Status Dates NON STAFF Attending Provider Active Start: 2023 End: June 18, 2024 Quality Control Head Relationship Specialty Start Date End Date Tao Davis MD PCP - General Family Medicine 05/13/19 INFORMATION SOURCE (unrecogn ized section and content) DATE CREATED AUTHOR 09/01/2022 [facility] DATE CREATED AUTHOR AUTHOR'S ORGANIZ ATION 03/09/2023 [facility] DATE CREATED AUTHOR AUTHOR'S ORGANIZ ATION 07/12/2024 [facility] DATE CREATED AUTHOR AUTHOR'S ORGANIZ ATION 10/03/2024 [facility] DATE CREATED AUTHOR AUTHOR'S ORGANIZ ATION 10/11/2024 [facility] Goals (unrecognized section [...] BE BASED ON THE PRIMARY CLINICAL RECORDS. [facility]. provides no warranty or guarantee of the accuracy or completeness of information in this document.
[2025-01-04] MEDS: ONDANSETRON PF 4 MG/2 ML VIAL IV (21:44)
[2025-01-04] MEDS: FAMOTIDINE/PF 20 MG/2 ML VIAL IV (21:45)
[2025-01-04 21:58] LABS: Basophils Percent Auto 0.2 % (0.2-2.0); Eosinophils Percent Auto 0.2 % (0.9-7.0); Hematocrit 37.1 % (36.0-48.0); Hemoglobin 12.2 g/dL (12.0-16.0); Immature Granulocytes Abs Auto 0.06 10^3/uL (0.00-0.03); Immature Granulocytes Pct Auto 0.4 % (0.0-0.5); Lymphocytes Absolute Auto 1.2 10^3/uL (1.2-3.8); Lymphocytes Percent Auto 8.3 % (20.5-60.0); Mean Corpuscular HGB Conc 32.9 g/dL (29.9-35.2); Mean Corpuscular Hemoglobin 29.3 pg (26.7-34.0); Mean Corpuscular Volume 89.2 fL (81.0-99.0); Mean Platelet Volume 10.8 fL (9.5-13.5); Monocytes Absolute Auto 1.1 10^3/uL (0.3-0.8); Monocytes Percent Auto 8.2 % (1.7-12.0); Neutrophils Absolute Auto 11.5 10^3/uL (1.4-6.5); Neutrophils Percent Auto 82.7 % (43.0-75.0); Platelet Count 219 10^3/uL (150-450); Red Blood Count 4.16 10^6/uL (4.20-5.40); Red Cell Distribution Width 14.6 % (11.0-15.0); White Blood Count 13.9 10^3/uL (4.0-11.0)
[2025-01-04 21:59] LABS: Influenza Virus A Antigen Negative; Influenza Virus B Antigen Negative; Internal Control Within Normal Limits; SARS-CoV-2 Ag NEGATIVE (NEGATIVE)
[2025-01-04 22:05] VITALS: O2SAT 96
--- NOTE | 2025-01-04 22:05 | PC.NURSE ---
oxygen initiated for patient comfort
--- NOTE | 2025-01-04 22:06 | PC.NURSE ---
To ED by EMS feeling weak for over 1 week states fevers, vomiting, diarrhea weakness, patient states she has passed out several times this week A/O x4
[2025-01-04 22:17] LABS: Alanine Aminotransferase 49 U/L (14-59); Albumin Level 3.4 g/dL (3.4-5.0); Alkaline Phosphatase 310 U/L (46-116); Anion Gap 26.3; Aspartate Amino Transferase 33 U/L (15-37); BUN Creatinine Ratio 19.4; Bilirubin Total 0.5 mg/dL (0.2-1.0); Calcium 6.8 mg/dL (8.5-10.1); Carbon Dioxide 10.9 mmol/L (21.0-32.0); Chloride 104 mmol/L (98-107); Estimated GFR (African America 8 (>=60 mL/min/1.73m^2); Estimated GFR (Non-African Ame 7 (>=60 mL/min/1.73m^2); Globulin 3.3 g/dL; Glucose 136 mg/dL (74-106); Potassium 3.2 mmol/L (3.5-5.1); Sodium 138 mmol/L (136-145); Total Protein 6.7 g/dL (6.4-8.2); Troponin I High Sensitivity 9.8 pg/mL (4.0-51.3)
[2025-01-04] MEDS: CEFTRIAXONE 1,000 MG in 0.9 % SODIUM CHLORIDE 50 ML 100 MG IV (22:55)
[2025-01-04] MEDS: 0.9 % SODIUM CHLORIDE 1,000 ML 100 ML IV (22:56)
[2025-01-05] VITALS (20 sets, daily range): BP systolic 127–166; BP diastolic 67–91; PULSE 66–91; TEMP 35.5–36.8; O2SAT 95–100; BMI 16.8
[2025-01-05 00:13] LABS: Lactate/Lactic Acid 0.9 mmol/L (0.4-2.0)
[2025-01-05] MEDS: CALCIUM GLUCONATE 1,000 MG/10 ML VIAL 1000 MG IVP (00:26)
[2025-01-05] MEDS: AZITHROMYCIN 500 MG in 0.9 % SODIUM CHLORIDE 250 ML 250 MG IV ×2 (00:27→23:28)
--- OUTSIDE RECORDS SUMMARY | 2025-01-05 01:24 | XMS_ITS | CCD ---
Author Organization [facility] Care Team Providers Care Art Objects Salesperson Name Role Phone Tao Davis MD Primary Care Provider [phone] SCOT ROGERS Primary Care Physician [phone] Tao Davis MD Primary Care Provider [phone] NICOLETTE RICE Attending UnavailARELIS Rivera Referring Unavailable TAO DAVIS Primary Care Unavailable Tao Davis MD Primary Care Provider [phone] TORIBIO Sanchez, DR BURGER Primary Care Unavailable [...] LOONEY Admitting Unavailable NANCY BARFIELD Attending Unavailable GOAPL CUI Consulting UnavailHimanshu Sanchez, DR BURGER Primary Care Unavailable AMY Sanchez, NANCY Admitting Unavailable JAZLYN DUBOSE Consulting Unavailable AMY ., NANCY Consulting Unavailable CAMERON NELSON Consulting Unavaila karen Sanchez, DR BURGER Primary Care Unavailable MOUKAHERMILO, DR LANCASTER Admitting Unavailable MOUKARBEL, DR LANCASTER Attending Unavailable SCOT ROGERS Attending Unavailable TORIBIO ., DR BURGRE Primary Care Unavailable KRISTIN, DR HAI Chambers Consulting Unavailable SUE, SCOT Admitting Unavailable SUE, SCOT Consulting Unavailable HOY ., DR BURGER Primary Care Unavailable HOY ., DR BURGER Admitting Unavailable HOY ., DR BURGER Consulting Unavailable HOY ., DR BURGER Attending Unavailable BRECKENRIDGE, DR JAZLYN Marcelino Consulting Unavailable SUE, SCOT [...] Unavailable Tao Davis MD Primary Care Provider [phone] Allergies Allergy Classification Reported Allergen(s) Allergy Type Date of Onset Reaction(s) Facility (11 sources) Acetaminophen / oxyCODONE; Translations: [OXYCODONE-ACETAM INOPHEN] Drug Allergy 05-18-20 14 GI Upset [facility] Work Phone: (12 sources) Promethazine; Translations: [PROMETHAZINE HCL] Drug Allergy 10-11-20 05 Other: See Comments [facility] (3 sources) Levamisole; Translations: [Phenergan] Drug Allergy 04-07-20 13 [facility] Repository (1 source) Morphine Drug Allergy [facility] Repository (3 sources) Promethazine; Translations: [promethazine] Drug Allergy 08-12-20 22 Loss of consciousness (finding) [facility] (1 source) No Known Medication Allergies; Translations: [No Known Medication Allergies] Propensity to adverse reactions (disorder) [facility] Repository Medications Current Medications Medication Drug [...] on above: Take 2 tablets by mo [facility] as needed for up to 180 days. 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 Dinh on 10/26/2024. Patient verbalized understanding. [facility] Office Visiton 09-14-2024 Follow-up visit [id number] Sylvia Hanna 1945 F Date Provider Department Center 09/14/2024 ANISHA JACOBS JULIAN Hernandez Family History Family history unknown: Yes Level of Service:94613 UT OFFICE/OUTPATIENT ESTABLISHED MOD MDM 30 MIN [facility] 36on 07-22-2024 36 Patient made aware. I sent her tacrolimus order in the mail for her to have done at [facility] 1 week prior to seeing Dr. Dinh for follow up on 09/14/2024. She verbalized understanding. [facility] 36on 07-21-2024 36 Regarding tacrolimus level drawn on 07/07/2024: MD Kaela Smith MA Did she have the echo? Her tacrolimus level is slightly high. I want a repeat in 2 months. *Dr. Dinh, her echo was performed on 07/13/2024 and is scanned into media planner. Will you review this and then I will call Sylvia. Thanks. [facility] Office Visiton 07-01-2024 Follow-up visit [id number] Sylvia Hanna 1945 F Date Provider Department Center 07/01/2024 ANISHA JACOBS JULIAN Katie [facility] Family History Family history unknown: Yes Level of Service:23581 UT OFFICE/OUTPATIENT ESTABLISHED MOD MDM 30 MIN Normal [facility] Activated partial thrombopla stin time (aPTT) in platelet poor plasma by coagulation aOrdered By: NON STAFF on 06-18-2024 aPTT Coag (PPP) [Time] 31.8 s 25.1-36.5 [facility] Comment on above: A hematocrit value g reater than 55% may lead to inaccurate results in coagulation testing. Patients having hematocrit values >55% require a special collection tube for coagulation studies. Please contact the laboratory at [phone] for redraw instructions. INR in Platelet poor plasma by Coagulation assayOrdered By: NON STAFF on 06-18-2024 INR Coag (PPP) [Relative time] 1.3 {INR} Normal [facility] Comment on above: INR Therapeutic Rang e [...] Performed By: #### P TT, PT #### [facility] [address] [place] [address] [place] Partial Thromboplastin Timeo n 06-18-2024 aPTT Coag (Bld) [Time] 31.8 s Normal 25.1-36.5 The Counts Include [address] At [facility] Comment on above: Result Comment: A he matocrit value greater than 55% may lead to inaccurate results in coagulation testing. Patients having hematocrit values >55% require a special collection tube for coagulation studies. Please contact the laboratory at [phone] for redraw instructions. PERFORMED BY: [place] [id number] PATHOLOGIST FIBER ARTIST ANDREIA ARRINGTON M.D. Performed By: #### P TT, PT #### [address] Prothrombin time (PT)Ordered By: NON STAFF on 06-18-2024 PT Coag (PPP) [Time] 14.4 s High 9.0-12.9 [facility] Comment on above: A hematocrit value g reater than 55% may lead to inaccurate results in coagulation testing. Patients having hematocrit values >55% require a special collection tube for coagulation studies. Please contact the laboratory at [phone] for redraw instructions. Result Comment: A he matocrit value greater than 55% may lead to inaccurate results in coagulation testing. Patients having hematocrit values >55% require a special collection tube for coagulation studies. Please contact the laboratory at [phone] for redraw instructions. Performed By: #### P TT, PT #### [place] [id number] [facility] 36on 04-06-2024 36 I reviewed the [...] labs as ordered at last visit. Normal [facility] Telephoneon 04-06-2024 Telephone [id number] Sylvia Hanna 1945 F Date Provider Department Center 04/06/2024 ANISHA JACOBS [facility] Family History Family history unknown: Yes Normal [facility] Orders Onlyon 03-18-2024 Orders Only [id number] Sylvia Hanna 1945 F Date Provider Department Center 03/18/2024 [id number] ISLAS GUS Hernandez Family History Family history unknown: Yes Normal [facility] Office Visiton 02-03-2024 Follow-up visit [id number] Sylvia Hanna 1945 F Date Provider Department Center 02/03/2024 ANISHA JACOBS Family History Family history unknown: Yes Level of Service:55395 UT OFFICE/OUTPATIENT ESTABLISHED MOD MDM 30 MIN Normal [facility] Office Visiton 11-12-2023 Follow-up visit [id number] Sylvia Hanna 1945 F Date Provider Department Center 11/12/2023 ANISHA JACOBS Family History Family history unknown: Yes Level of Service:83255 UT OFFICE/OUTPATIENT ESTABLISHED MOD MDM 30-39 MIN [facility] 36on 10-26-2023 36 Her tacrolimus level from 10/16/2023 was 1.4. still very low. I believe she is currently taking tacrolimus (Prograf) 0.5 mg bid. I want her to increase to 1 mg bid and obtain another trough level in 2-3 weeks. Normal [facility] Telephoneon 10-26-2023 Telephone [id number] Sylvia Hanna 1945 F Date Provider Department Center 10/26/2023 ANISHA JACOBS Family History Family history unknown: Yes Normal [facility] CHEMISTRYOrdered By: SYSTEM SYSTEM on 04-08-2023 Anion [...] 42 mL/min/1.73 m2 Low >=59mL/min/ 1.73 m2 [facility] S Glucose [Mass/Vol] 124 mg/dL Normal [...] 9.70 pg/mL Low 10.10 - 27.10 pg/mL [facility] Remisol CHEMISTRYOrdered By: SYSTEM SYSTEM on 04-07-2023 [...] 35 mL/min/1.73 m2 Low >=59mL/min/ 1.73 m2 [facility] S Glucose [Mass/Vol] 139 mg/dL Normal [...] HemeAutoSS INFLUENZA A AND B AGon 03-05 [facility] SEE BELOW Normal [facility] Comment on above: Result Comment: Nega tive for Flu A protein angiten. Infection due to Flu A cannot be ruled out. Flu A angiten in the sample may be below the detection limit of the test. Performed By: #### E RUR #### [facility] [address] [address] [address] Hardeep Rivera [facility] SEE BELOW Normal [facility] Comment on above: Result Comment: Nega tive for Flu B protein antigen. Infection due to Flu B cannot be ruled out. Flu B antigen in the sample may be below the detection limit of the test. Performed By: #### E RUR #### [facility] [address] [address] [address] Hardeep Rivera INFLUENZA A AG Negative Normal NEGATIVE SEE COMMENT [facility] Comment on above: Performed By: #### E RUR #### [facility] [address] [address] [address] Hardeep Rivera INFLUENZA B AG Negative Normal NEGATIVE SEE COMMENT [facility] Comment on above: Performed By: #### E RUR #### [facility] [address] [address] [address] Hardeep Rivera SYMPTOMATIC COVID-19 ANTIGEN on 03-05-2023 EUA Statement SEE BELOW Normal [facility] Comment on above: Result Comment: This [...] revoked sooner. Performed By: #### C VDAGS ####[facility] [address] [place] [address]Dr. Hardeep Rivera SARS-CoV-2 (COVID-19) RNA ULICES+probe Ql (Unsp spec) Positive Abnormal NEGATIVE [facility] Comment on above: Performed By: #### C VDAGS ####[facility] [address] [place] [id number]. Hardeep Rivera FK506 (TACROLIMUS) WHOLE BLO ODon 02-28-2023 Tacrolimus (FK506), Blood 5.8 ng/mL Normal 2.0-20.0 [facility] Comment on above: Result Comment: Trou gh (immediately following transplant) 15.0 . Trough (steady state, 2 weeks or more after transplant): 3.0 - 8.0 . Performed by LC-MS/MS technology. Performed By: #### F K506T ####[facility] [address] [place] [address]Dr. Hardeep Rivera CBC AUTO DIFFon 02-14-2023 BASO # 0.0 103/ul Normal 0.0-0.1 [facility] Comment on above: Performed By: #### RANDALL OLSON #### [facility] [address] [place] [address] Dr. Hardeep Rivera Basophils/100 WBC (Bld) 0.5 % Normal 0.2-2.0 [facility] Comment on above: Performed By: #### RANDALL OLSON #### [facility] [address] [place] [address] Dr. Hardeep Rivera EO # 0.2 103/ul Normal 0.0-0.7 [facility] Comment on above: Performed By: #### RANDALL OLSON #### [facility] [address] [place] [address] Dr. Hardeep Rivera Eosinophils/100 WBC (Bld) 3.5 % Normal 0.9-7.0 [facility] Comment on above: Performed By: #### RANDALL OLSON #### [facility] [address] [place] [address] Dr. Hardeep Rivera Erythrocyte distribution width (RBC) [Ratio] 12.3 % Normal 11.0-15.0 [facility] Comment on above: Performed By: #### RANDALL OLSON #### [facility] [address] [place] [address] Dr. Hardeep Rivera Hematocrit (Bld) [Volume fraction] 38.7 % Normal 36.0-48.0 [facility] Comment on above: Performed By: #### HARI OLSONRO #### [facility] [address] [place] [address] Dr. Hardeep Rivera Hemoglobin (Bld) [Mass/Vol] 12.6 g/dL Normal 12.0-16.0 [facility] Comment on above: Performed By: #### E RUR, UMICRO #### [facility] [address] [address] [address] Hardeep Rivera IG # 0.03 10e3/ul Normal 0.00-0.03 [facility] Comment on above: Performed By: #### E RUR, UMICRO #### [facility] [address] [place] [address] Dr. Hardeep Rivera IG % 0.5 % Normal 0.0-0.5 [facility] Comment on above: Performed By: #### E RUR, UMICRO #### [facility] [address] [place] [address] Dr. Hardeep Rivera LYMPH # 0.8 103/ul Critically low 1.2-3.8 [facility] Comment on above: Performed By: #### E KATHRIN, UMICRO #### [facility] [address] [place] [address] Dr. Hardeep Rivera Lymphocytes/100 WBC (Bld) 13.2 % Critically low 20.5-60.0 [facility] Comment on above: Performed By: #### Deedee PNION, UMICRO #### [facility] [address] [place] [address] Dr. Hardeep Rivera MANUAL DIFF REQ NO Normal [facility] Comment on above: Performed By: #### E RUTrish, UMICRO #### [facility] [address] [place] [address] Dr. Hardeep Rivera MCH (RBC) [Entitic mass] 28.3 pg Normal 26.7-34.0 [facility] Comment on above: Performed By: #### E RUTrish, UMICRO #### [facility] [address] [place] [address] Dr. Hardeep Rivera MCHC (RBC) [Mass/Vol] 32.6 g/dL Normal 29.9-35.2 [facility] Comment on above: Performed By: #### Deedee RUR, UMICRO #### [facility] [address] [place] [address] Dr. Hardeep Rivera MCV (RBC) [Entitic vol] 87.0 fL Normal 81.0-99.0 [facility] Comment on above: Performed By: #### RANDALL OLSON #### [facility] [address] [place] [address] Dr. Hardeep Rivera MONO # 0.8 103/ul Normal 0.3-0.8 [facility] Comment on above: Performed By: #### RANDALL OLSON #### [facility] [address] [place] [address] Dr. Hardeep Rivera Monocytes/100 WBC (Bld) 12.9 % Critically high 1.7-12.0 [facility] Comment on above: Performed By: #### RANDALL OLSON #### [facility] [address] [place] [address] Dr. Hardeep Rivera NEUT # 4.4 103/ul Normal 1.4-6.5 [facility] Comment on above: Performed By: #### RANDALL OLSON #### [facility] [address] [place] [address] Dr. Hardeep Rivera Neutrophils/100 WBC (Bld) 69.4 % Normal 43.0-75.0 [facility] Comment on above: Performed By: #### RANDALL OLSON #### [facility] [address] [place] [address] Dr. Hardeep Rivera Platelet mean volume (Bld) [Entitic vol] 9.0 fL Critically low 9.5-13.5 [facility] Comment on above: Performed By: #### HARI OLSONRO #### [facility] [address] [place] [address] Dr. Hardeep Rivera PLT 205 103/ul Normal 150-450 [facility] Comment on above: Performed By: #### HARI OLSONRO #### [facility] [address] [place] [address] Dr. Hardeep Rivera RBC 4.45 106/ul Normal 4.20-5.40 [facility] Comment on above: Performed By: #### HARI OLSONRO #### [facility] [address] [address] [address] Hardeep Rivera WBC 6.3 103/ul Normal 4.0-11.0 [facility] Comment on above: Performed By: #### RANDALL OLSON #### [facility] [address] [place] [address] HEAD WO CONon [...] CAMERON NELSON Date: 2023-02-14 15:46 Normal [facility] ER URINE PROFILEon 3 Bilirubin Ql (U) Negative Normal NEGATIVE [facility] Comment on above: Performed By: #### RANDALL OLSON #### [facility] [address] [place] [address] Dr. Hardeep Rivera Clarity (U) CLEAR Normal CLEAR [facility] Comment on above: Performed By: #### RANDALL OLSON #### [facility] [address] [address] [address] Hardeep Rivera Color (U) LT. YELLOW Normal YELLOW [facility] Comment on above: Performed By: #### E RUR, UMICRO #### [facility] [address] [place] [address] Dr. Hardeep FRANCIS A micrscopic examina tion will be performed if indicated. Normal [facility] Comment on above: Performed By: #### E RUR, UMICRO #### [facility] [address] [place] [address] Dr. Hardeep Rivera Glucose Ql (U) Negative Normal NEGATIVE [facility] Comment on above: Performed By: #### E RUR, UMICRO #### [facility] [address] [place] [address] Dr. Hardeep Rivera Hemoglobin Ql (U) TRACE-INTACT Abnormal NEGATIVE [facility] Comment on above: Performed By: #### E RUR, UMICRO #### [facility] [address] [place] [address] Dr. Hardeep Rivera Ketones Ql (U) Negative Normal NEGATIVE [facility] Comment on above: Performed By: #### E RUR, UMICRO #### [facility] [address] [place] [address] Dr. Hardeep Rivera LEUKOCYTES Negative Normal NEGATIVE [facility] Comment on above: Performed By: #### Deedee RUTrish, UMICRO #### [facility] [address] [place] [address] Dr. Hardeep Rivera Nitrite Ql (U) Negative Normal NEGATIVE [facility] Comment on above: Performed By: #### E RUR, UMICRO #### [facility] [address] [place] [address] Dr. Hardeep Rivera pH (U) 7.0 [pH] Normal 5-9 [facility] Comment on above: Performed By: #### E RUR, UMICRO #### [facility] [address] [place] [address] Dr. Hardeep Rivera Protein (U) [Mass/Vol] 30 mg/dL Abnormal NEGATIVE/ TRACE [facility] Comment on above: Performed By: #### E RUR, UMICRO #### [facility] [address] [address] [address] Hardeep Rivera SPEC GRAVITY 1.010 Normal 1.005-<=1.[address] [place] [address] Comment on above: Performed By: #### HARI OLSONRO #### [facility] [address] [place] [address] Dr. Hardeep Rivera UR MICRO IND INDICATED Normal [facility] Comment on above: Performed By: #### HARI OLSONRO #### [facility] [address] [address] [address] Hardeep Rivera Urobilinogen Qn (U) 0.2 {Kevon'U}/dL Normal 0.2 - 1. 0 [facility] Comment on above: Performed By: #### HARI OLSONRO #### [facility] [address] [place] [address] Dr. Hardeep Rivera PROF 14(COMP METB)on 023 Albumin [Mass/Vol] 3.5 g/dL Normal 3.4-5.0 [facility] Comment on above: Performed By: #### H STROPN, CMP, TSH ####[facility] [address] [place] [address]DrLaura Rivera Albumin/Globulin [Mass ratio] 1.2 {ratio} Normal [facility] Comment on above: Performed By: #### H STROPN, CMP, TSH ####[facility] [address] [place] [address]DrLaura Rivera ALP [Catalytic activity/Vol] 153 U/L Critically high 46-116 [facility] Comment on above: Performed By: #### H STROPN, CMP, TSH ####[facility] [address] [address]DrLaura Rivera ALT [Catalytic activity/Vol] 21 U/L Normal 14-59 [facility] Comment on above: Performed By: #### H STROPN, CMP, TSH ####[facility] [address] [place] [address]DrLaura Rivera Anion gap [Moles/Vol] 9.3 mmol/L Normal [facility] Comment on above: Performed By: #### H TYLER CMP, TSH ####[facility] [address] [address]Dr. Hardeep Rivera AST [Catalytic activity/Vol] 23 U/L Normal 15-37 [facility] Comment on above: Performed By: #### H TYLER CMP, TSH ####[facility] [address] [place] [address]Dr. Hardeep Rivera Bilirubin [Mass/Vol] 0.6 mg/dL Normal 0.2-1.0 [facility] Comment on above: Performed By: #### H TYLER CMP, TSH ####[facility] [address] [address]Dr. Hardeep Rivera Calcium [Mass/Vol] 8.4 mg/dL Critically low 8.5-10.1 [facility] Comment on above: Performed By: #### H TYLER CMP, TSH ####[facility] [address] [address]Dr. Hardeep Rivera Chloride [Moles/Vol] 96 mmol/L Critically low 98-107 [facility] Comment on above: Performed By: #### H TYLER CMP, TSH ####[facility] [address] [address]Dr. Hardeep Rivera CO2 [Moles/Vol] 29.3 mmol/L Normal 21.0-32.0 [facility] Comment on above: Performed By: #### H TYLER CMP, TSH ####[facility] [address] [address]Dr. Hardeep Rivera Creatinine [Mass/Vol] 1.16 mg/dL Critically high 0.55-1.02 [facility] Comment on above: Performed By: #### H STRONATHANIEL, CMP, TSH ####[facility] [address] [place] [address]Dr. Hardeep Rivera EGFR-AF LITHUANIAN 55 mL/min/1.73m2 Critically low >=60 [facility] Comment on above: Performed By: #### H STROPN, CMP, TSH ####[facility] [address] [address]Dr. Hardeep Rivera EGFR-NON AF LITHUANIAN 45 mL/min/1.73m2 Critically low >=60 [facility] Comment on above: Performed By: #### H STROPN, CMP, TSH ####[facility] [address] [address]Dr. Hardeep Rivera Globulin (S) [Mass/Vol] 2.9 g/dL Normal [facility] Comment on above: Performed By: #### H STROPN, CMP, TSH ####[facility] [address] [place] [address]Dr. Hardeep Rivera Glucose [Mass/Vol] 105 mg/dL Normal 74-106 [facility] Comment on above: Performed By: #### H STROPN, CMP, TSH ####[facility] [address] [address]Dr. Hardeep Rivera Potassium [Moles/Vol] 4.6 mmol/L Normal 3.5-5.1 [facility] Comment on above: Performed By: #### H STROPN, CMP, TSH ####[facility] [address] [place], [place] [address]Dr. Hardeep Rivera Protein [Mass/Vol] 6.4 g/dL Normal 6.4-8.2 [facility] Comment on above: Performed By: #### H STROPN, CMP, TSH ####[facility] [address] [place] [address]Dr. Hardeep Rivera Sodium [Moles/Vol] 130 mmol/L Critically low 136-145 [facility] Comment on above: Performed By: #### H STROPN, CMP, TSH ####[facility] [address] [place] [address]Dr. Hardeep Rivera Urea nitrogen [Mass/Vol] 27.0 mg/dL Critically high 7.0-18.0 [facility] Comment on above: Performed By: #### H STROPN, CMP, TSH ####[facility] [address] [place], [place] [address]Dr. Hardeep Rivera Urea nitrogen/Creatinine [Mass ratio] 23.3 mg/mg Normal [facility] Comment on above: Performed By: #### H TYLER, CMP, TSH ####[facility] [address] [place] [address]Dr. Hardeep Rivera PROTIMEon 02-14-2023 INR Coag (PPP) [Relative time] 1.07 {INR} Normal [facility] Comment on above: Performed By: #### P T, PTT ####[facility] E[address] [place], [place] [address]Dr. Hardeep Rivera INR GUIDELINES SEE BELOW Normal [facility] Comment on above: Result Comment: EDMUND RED INR: 2.0 - 3.0 CONDITIONS NOT LISTED BELOW 2.5 - 3.5 FOR PROSTHETIC HEART VALVE REPLACEMENT 2.5 - 3.5 RECURRENT THROMBOSIS Performed By: #### P T, PTT ####[facility] [address] [place], [place] [address]Dr. Hardeep Rivera PT Coag (PPP) [Time] 11.3 s Normal 9.0-11.6 [facility] Comment on above: Performed By: #### P T, PTT ####[facility] [address] [place], [place] [address]Dr. Hardeep Rivera PTTon 02-14-2023 aPTT Coag (Bld) [Time] 29.1 s Normal 22.3-36.2 [facility] Comment on above: Performed By: #### P T, PTT ####[facility] [address] [place], [place] [address]Dr. Hardeep Rivera TROPONIN, HIGH SENSITIVITYon 02-14-2023 HSTROP 10.4 pg/mL Normal 4.0-51.3 [facility] Comment on above: Result Comment: CUT- OFF POINTS HAVE BEEN ESTABLISHED BASED ON THE FOURTH UNIVERSAL DEFINITIONS OF MYOCARDIAL INFARCTION. THE UPPER REFERENCE LIMIT (URL) OF TROPONIN, DEFINED THE 99TH PERCENTILE OF cTnI DISTRIBUTION IN A REFERENCE POPULATION, HAS BEEN CONFIRMED THE DECISION THRESHOLD FOR ND DIAGNOSIS. Performed By: #### H PETEPN, CMP, TSH ####[facility] [address] [place] [id number]. Hardeep Rivera TSHon 02-14-2023 TSH 1.237 uIU/mL Normal 0.358-3.740 [facility] Comment on above: Performed By: #### H STROPN, CMP, TSH ####[facility] [address] [place], [place] [address]TaDr. Hardeep Rivera URINE MICROSCOPIC ONLYon BACTERIA NONE SEEN Normal NONE SEEN [facility] Comment on above: Performed By: #### Deedee PINON UMICRO #### [facility] [address] [place] [address] Dr. Hardeep Rivera Bacteria identified Cx Nom (U) NOT INDICATED Normal [facility] Comment on above: Performed By: #### Deedee PINON UMICRO #### [facility] [address] [place] [address] Dr. Hardeep Rivera CAST NONE SEEN Normal NONE SEEN [facility] Comment on above: Performed By: #### Deedee PINON UMICRO #### [facility] [address] [place] [address] Dr. Hardeep Rivera Crystals LM Nom (Urine sed) NONE SEEN Normal NONE SEEN [facility] Comment on above: Performed By: #### Deedee PINON UMICRO #### [facility] [address] [place] [address] Dr. Hardeep Rivera Epithelial cells LM Ql (Urine sed) NONE SEEN Normal NONE SEEN /RARE [facility] Comment on above: Performed By: #### Deedee PINON UMICRO #### [facility] [address] [place] [address] Dr. Hardeep Rivera MUCOUS NONE SEEN Normal NONE SEEN [facility] Comment on above: Performed By: #### Deedee PINON UMICRO #### [facility] [address] [place] [address] Dr. Hardeep Rivera RBC 0-2 Normal 0-2 [facility] Comment on above: Performed By: #### Deedee PINON UMICRO #### [facility] [address] [place] [address] Dr. Hardeep Rivera WBC NONE SEEN Normal NONE SEEN [facility] Comment on above: Performed By: #### E RURRANDALL #### [facility] [address] [place], [place] [address] Dr. Hardeep Rivera XR CHEST 1 Von [...] JAZLYN DUBOSE Date: 2023-02-14 15:50 Normal [facility] FK506 (TACROLIMUS) WHOLE BLO ODon 02-13-2023 Tacrolimus (FK506), Blood 1.4 ng/mL Critically low 2.0-20.0 [facility] Comment on above: Result Comment: Trou gh (immediately following transplant) 15.0 . Trough (steady state, 2 weeks or more after transplant): 3.0 - 8.0 . Performed by LC-MS/MS technology. Performed By: #### E RUR #### [facility] [id number] Hardeep Rivera PROF 14(COMP METB)on 023 Albumin [Mass/Vol] 3.5 g/dL Normal 3.4-5.0 [facility] Comment on above: Performed By: #### C MP ####[facility] [address] [place] [id number]. Hardeep Rivera Albumin/Globulin [Mass ratio] 1.2 {ratio} Normal [facility] Comment on above: Performed By: #### C MP ####[facility] [address] [place] [id number] Rivera ALP [Catalytic activity/Vol] 149 U/L Critically high 46-116 [facility] Comment on above: Performed By: #### C MP ####[facility] [address] [place] [id number] Rivera ALT [Catalytic activity/Vol] 19 U/L Normal 14-59 [facility] Comment on above: Performed By: #### C MP ####[facility] [address] [place] [id number]. Hardeep Rivera Anion gap [Moles/Vol] 11.7 mmol/L Normal [facility] Comment on above: Performed By: #### C MP ####[facility] [address] [place] [id number]. Hardeep Rivera AST [Catalytic activity/Vol] 27 U/L Normal 15-37 [facility] Comment on above: Performed By: #### C MP ####[facility] [address] [place] [id number]. Hardeep Miguel Bilirubin [Mass/Vol] 0.6 mg/dL Normal 0.2-1.0 [facility] Comment on above: Performed By: #### C MP ####[facility] [address] [place] [id number]. Hardeep Miguel Calcium [Mass/Vol] 8.5 mg/dL Normal 8.5-10.1 [facility] Comment on above: Performed By: #### C MP ####[facility] [address] [place] [id number]. Hardeep Miguel Chloride [Moles/Vol] 96 mmol/L Critically low 98-107 [facility] Comment on above: Performed By: #### C MP ####[facility] [address] [place] [id number]. Hardeep Miguel CO2 [Moles/Vol] 28.1 mmol/L Normal 21.0-32.0 [facility] Comment on above: Performed By: #### C MP ####[facility] [address] [place] [id number]. Hardeep Miguel Creatinine [Mass/Vol] 1.24 mg/dL Critically high 0.55-1.02 [facility] Comment on above: Performed By: #### C MP ####[facility] [address] [place] [id number]. Preethiarabella Miguel EGFR-AF LITHUANIAN 51 mL/min/1.73m2 Critically low >=60 [facility] Comment on above: Performed By: #### C MP ####[facility] [address] [place] [id number]. Hardeep Rivera EGFR-NON AF LITHUANIAN 42 mL/min/1.73m2 Critically low >=60 [facility] Comment on above: Performed By: #### C MP ####[facility] [address] [place] [id number]. Hardeep Rivera Globulin (S) [Mass/Vol] 3.0 g/dL Normal [facility] Comment on above: Performed By: #### C MP ####[facility] [address] [place] [id number]. Hardeep Rivera Glucose [Mass/Vol] 141 mg/dL Critically high 74-106 [facility] Comment on above: Performed By: #### C MP ####[facility] [address] [place] [id number]. Hardeep Rivera Potassium [Moles/Vol] 4.8 mmol/L Normal 3.5-5.1 [facility] Comment on above: Performed By: #### C MP ####[facility] [address] [place] [id number]. Hardeep Rivera Protein [Mass/Vol] 6.5 g/dL Normal 6.4-8.2 [facility] Comment on above: Performed By: #### C MP ####[facility] [address] [place] [id number]. Hardeep Rivera Sodium [Moles/Vol] 131 mmol/L Critically low 136-145 [facility] Comment on above: Performed By: #### C MP ####[facility] [address] [place] [id number]. Hardeep Rivera Urea nitrogen [Mass/Vol] 29.0 mg/dL Critically high 7.0-18.0 [facility] Comment on above: Performed By: #### C MP ####[facility] [address] [place] [id number]. Hardeep Miguel Urea nitrogen/Creatinine [Mass ratio] 23.4 mg/mg Normal [facility] Comment on above: Performed By: #### C MP ####[facility] [address] [place] [id number]. Hardeep Rivera BNPon 01-09-2023 Natriuretic peptide B (Bld) [Mass/Vol] 336.0 pg/mL Normal <=1,800.0 [facility] Comment on above: Performed By: #### C MP, TSH, BNP, T7 ####[facility] [address] [place] [address]Dr. Hardeep Rivera CBC AUTO DIFFon 01-09-2023 BASO # 0.0 103/ul Normal 0.0-0.1 [facility] Comment on above: Performed By: #### C BC #### [facility] [address] [place] [address] Dr. Hardeep Rivera Basophils/100 WBC (Bld) 0.4 % Normal 0.2-2.0 [facility] Comment on above: Performed By: #### C BC #### [facility] [address] [place] [address] Dr. Hardeep Rivera EO # 0.3 103/ul Normal 0.0-0.7 [facility] Comment on above: Performed By: #### C BC #### [facility] [address] [place] [address] Dr. Hardeep Rivera Eosinophils/100 WBC (Bld) 4.4 % Normal 0.9-7.0 [facility] Comment on above: Performed By: #### C BC #### [facility] [address] [place] [address] [address] Hardeep Rivera Erythrocyte distribution width (RBC) [Ratio] 12.3 % Normal 11.0-15.0 [facility] Comment on above: Performed By: #### C BC #### [facility] [address] [place] [address] Dr. Hardeep Rivera Hematocrit (Bld) [Volume fraction] 43.3 % Normal 36.0-48.0 [facility] Comment on above: Performed By: #### C BC #### [facility] [address] [place] [address] Dr. Hardeep Rivera Hemoglobin (Bld) [Mass/Vol] 13.5 g/dL Normal 12.0-16.0 [facility] Comment on above: Performed By: #### C BC #### [facility] [address] [place] [address] Dr. Hardeep Rivera IG # 0.02 10e3/ul Normal 0.00-0.03 [facility] Comment on above: Performed By: #### C BC #### [facility] [address] [place] [address] Dr. Hardeep Rivera IG % 0.3 % Normal 0.0-0.5 [facility] Comment on above: Performed By: #### C BC #### [facility] [address] [place] [address] Dr. Hardeep Rivera LYMPH # 1.1 103/ul Critically low 1.2-3.8 [facility] Comment on above: Performed By: #### C BC #### [facility] [address] [place] [address] Dr. aHrdeep Rivera Lymphocytes/100 WBC (Bld) 16.0 % Critically low 20.5-60.0 [facility] Comment on above: Performed By: #### C BC #### [facility] [address] [place] [address] Dr. Hardeep Rivera MANUAL DIFF REQ NO Normal [facility] Comment on above: Performed By: #### C BC #### [facility] [address] [place] [address] Dr. Hardeep Rivera MCH (RBC) [Entitic mass] 28.4 pg Normal 26.7-34.0 [facility] Comment on above: Performed By: #### C BC #### [facility] [address] [place] [address] Dr. Hardeep Rivera MCHC (RBC) [Mass/Vol] 31.2 g/dL Normal 29.9-35.2 [facility] Comment on above: Performed By: #### C BC #### [facility] [address] [place] [address] Dr. Hardeep Rivera MCV (RBC) [Entitic vol] 91.0 fL Normal 81.0-99.0 [facility] Comment on above: Performed By: #### C BC #### [facility] [address] [place] [address] [address] Hardeep Rivera MONO # 1.0 103/ul Critically high 0.3-0.8 [facility] Comment on above: Performed By: #### C BC #### [facility] [address] [place] [address] [address] Hardeep Rivera Monocytes/100 WBC (Bld) 14.7 % Critically high 1.7-12.0 [facility] Comment on above: Performed By: #### C BC #### [facility] [address] [place] [address] Dr. Hardeep Rivera NEUT # 4.4 103/ul Normal 1.4-6.5 [facility] Comment on above: Performed By: #### C BC #### [facility] [address] [place] [address] Dr. Hardeep Rivera Neutrophils/100 WBC (Bld) 64.2 % Normal 43.0-75.0 [facility] Comment on above: Performed By: #### C BC #### [facility] [address] [place] [address] Dr. Hardeep Rivera Platelet mean volume (Bld) [Entitic vol] 9.5 fL Normal 9.5-13.5 [facility] Comment on above: Performed By: #### C BC #### [facility] [address] [place] [address] Dr. Hardeep Rivera PLT 238 103/ul Normal 150-450 [facility] Comment on above: Performed By: #### C BC #### [facility] [address] [place] [address] Dr. Hardeep Rivera RBC 4.76 106/ul Normal 4.20-5.40 [facility] Comment on above: Performed By: #### C BC #### [facility] [address] [place] [address] Dr. Hardeep Rivera WBC 6.8 103/ul Normal 4.0-11.0 [facility] Comment on above: Performed By: #### C BC #### [facility] [address] [place] [address] [address] Hardeep Rivera FREE THYROXINE INDEX T7on FTI 3.96 Normal 1.30-4.50 [facility] Comment on above: Performed By: #### C MP, TSH, BNP, T7 ####[facility] [address] [place] [address]Dr. Hardeep Rivera T3U 35.0 % Normal 30.0-39.0 [facility] Comment on above: Performed By: #### C MP, TSH, BNP, T7 ####[facility] [address] [place] [address]Dr. Hardeep Rivera T4 [Mass/Vol] 11.30 ug/dL Normal 4.80-13.90 [facility] Comment on above: Performed By: #### C MP, TSH, BNP, T7 ####[facility] [address] [place] [address]Dr. Hardeep Rivera PROF 14(COMP METB)on 023 Albumin [Mass/Vol] 3.9 g/dL Normal 3.4-5.0 [facility] Comment on above: Performed By: #### C MP, TSH, BNP, T7 ####[facility] [address] [place] [address]DrLaura Rivera Albumin/Globulin [Mass ratio] 1.2 {ratio} Normal [facility] Comment on above: Performed By: #### C MP, TSH, BNP, T7 ####[facility] [address] [place] [address]DrLaura Rivera ALP [Catalytic activity/Vol] 151 U/L Critically high 46-116 [facility] Comment on above: Performed By: #### C MP, TSH, BNP, T7 ####[facility] [address] [place] [address]DrLaura Rivera ALT [Catalytic activity/Vol] 30 U/L Normal 14-59 [facility] Comment on above: Performed By: #### C MP, TSH, BNP, T7 ####[facility] [address] [place] [address]Dr. Hardeep Rivera Anion gap [Moles/Vol] 15.6 mmol/L Normal [facility] Comment on above: Performed By: #### C MP, TSH, BNP, T7 ####[facility] [address] [place] [address]Dr. Hardeep Rivera AST [Catalytic activity/Vol] 23 U/L Normal 15-37 [facility] Comment on above: Performed By: #### C MP, TSH, BNP, T7 ####[facility] [address] [place], [place] [address]Dr. Hardeep Rivera Bilirubin [Mass/Vol] 0.7 mg/dL Normal 0.2-1.0 [facility] Comment on above: Performed By: #### C MP, TSH, BNP, T7 ####[facility] [address] [place], [place] [address]Dr. Hardepe Rivera Calcium [Mass/Vol] 9.0 mg/dL Normal 8.5-10.1 [facility] Comment on above: Performed By: #### C MP, TSH, BNP, T7 ####[facility] [address] [place], [place] [address]Dr. Hardeep Rivera Chloride [Moles/Vol] 97 mmol/L Critically low 98-107 [facility] Comment on above: Performed By: #### C MP, TSH, BNP, T7 ####[facility] [address] [place], [place] [address]Dr. Hardeep Rivera CO2 [Moles/Vol] 26.1 mmol/L Normal 21.0-32.0 [facility] Comment on above: Performed By: #### C MP, TSH, BNP, T7 ####[facility] [address] [place], [place] [address]Dr. Hardeep Rivera Creatinine [Mass/Vol] 1.78 mg/dL Critically high 0.55-1.02 [facility] Comment on above: Performed By: #### C MP, TSH, BNP, T7 ####[facility] [address] [place] [address]Dr. Hardeep Rivera EGFR-AF LITHUANIAN 33 mL/min/1.73m2 Critically low >=60 [facility] Comment on above: Performed By: #### C MP, TSH, BNP, T7 ####[facility] [address] [place] [address]Dr. Hardeep Rivera EGFR-NON AF LITHUANIAN 28 mL/min/1.73m2 Critically low >=60 [facility] Comment on above: Performed By: #### C MP, TSH, BNP, T7 ####[facility] [address] [place] [address]Dr. Hardeep Rivera Globulin (S) [Mass/Vol] 3.3 g/dL Normal [facility] Comment on above: Performed By: #### C MP, TSH, BNP, T7 ####[facility] [address] [place], [place] [address]Dr. Hardeep Rivera Glucose [Mass/Vol] 127 mg/dL Critically high 74-106 [facility] Comment on above: Performed By: #### C MP, TSH, BNP, T7 ####[facility] [address] [place] [address]Dr. Hardeep Rivera Potassium [Moles/Vol] 3.7 mmol/L Normal 3.5-5.1 [facility] Comment on above: Performed By: #### C MP, TSH, BNP, T7 ####[facility] [address] [place], [place] [address]Dr. Hardeep Rivera Protein [Mass/Vol] 7.2 g/dL Normal 6.4-8.2 [facility] Comment on above: Performed By: #### C MP, TSH, BNP, T7 ####[facility] [address] [place], [place] [address]Dr. Hardeep Rivera Sodium [Moles/Vol] 135 mmol/L Critically low 136-145 [facility] Comment on above: Performed By: #### C MP, TSH, BNP, T7 ####[facility] [address] [place] [address]Dr. Hardeep Rivera Urea nitrogen [Mass/Vol] 54.0 mg/dL Critically high 7.0-18.0 [facility] Comment on above: Performed By: #### C MP, TSH, BNP, T7 ####[facility] [address] [place], [place] [address]To. Hardeep Rivera Urea nitrogen/Creatinine [Mass ratio] 30.3 mg/mg Normal [facility] Comment on above: Performed By: #### C MP, TSH, BNP, T7 ####[facility] [address] [place], [place] [address]Ai. Hardeep Rivera TSHon 01-09-2023 TSH 1.097 uIU/mL Normal 0.358-3.740 [facility] Comment on above: Performed By: #### C MP, TSH, BNP, T7 ####[facility] [address] [place], [place] [address]Ig. Hardeep Rivera ECHOCARDIO M/2D COMPLETEon 0 12-13-2022 ECHOCARDIO M/2D COMPLETE Patient: SYLVIA HANNA Exam Date: 12/13/2022 : 1945 Gender:F Ordering : [facility] Admission #: [id number] Family : Order #: [id number] CLICK HERE TO VIEW EXAM ECHOCARDIOGRAM REPORT [...] Area (VTI): 2.23 cm2, 2.23 cm2 Deceleration Coffee: 1.44 m/s2 Pressure Half-Time: 850.98 ms Peak [...] M.D. on 12/14/2022 at 13:[address] [facility] US ALAN DOP LEG BILon 023 [...] HAI FOSTER Date: 2022-12-13 10:51 Normal [facility] BNPon 12-11-2022 Natriuretic peptide B (Bld) [Mass/Vol] 457.0 pg/mL Normal <=1,800.0 [facility] Comment on above: Performed By: #### RANDALL OLSON #### [facility] [address] [place], [place] [address] Dr. Hardeep Rivera CBC AUTO DIFFon 12-11-2022 BASO # 0.0 103/ul Normal 0.0-0.1 [facility] Comment on above: Performed By: #### RANDALL OLSON #### [facility] [address] [place], [place] [address] Dr. Hardeep Rivera Basophils/100 WBC (Bld) 0.4 % Normal 0.2-2.0 [facility] Comment on above: Performed By: #### RANDALL OLSON #### [facility] [address] [place] [address] Dr. Hardeep Rivera EO # 0.2 103/ul Normal 0.0-0.7 [facility] Comment on above: Performed By: #### RANDALL OLSON #### [facility] [address] [place] [address] Dr. Hardeep Rivera Eosinophils/100 WBC (Bld) 2.7 % Normal 0.9-7.0 [facility] Comment on above: Performed By: #### RANDALL OLSON #### [facility] [address] [place] [address] Dr. Hardeep Rivera Erythrocyte distribution width (RBC) [Ratio] 11.9 % Normal 11.0-15.0 [facility] Comment on above: Performed By: #### RANDALL OLSON #### [facility] [address] [place] [address] Dr. Hardeep Rivera Hematocrit (Bld) [Volume fraction] 40.2 % Normal 36.0-48.0 [facility] Comment on above: Performed By: #### RANDALL OLSON #### [facility] [address] [place] [address] Dr. Hardeep Rivrea Hemoglobin (Bld) [Mass/Vol] 13.5 g/dL Normal 12.0-16.0 [facility] Comment on above: Performed By: #### RANDALL OLSON #### [facility] [address] [place] [address] Dr. Hardeep Rivera IG # 0.03 10e3/ul Normal 0.00-0.03 [facility] Comment on above: Performed By: #### RANDALL OLSON #### [facility] [address] [place] [address] Dr. Hardeep Rivera IG % 0.4 % Normal 0.0-0.5 [facility] Comment on above: Performed By: #### RANDALL OLSON #### [facility] [address] [place] [address] Dr. Hardeep Rivera LYMPH # 0.9 103/ul Critically low 1.2-3.8 [facility] Comment on above: Performed By: #### E COLLINSR, UMICRO #### [facility] [address] [place] [address] Dr. Hardeep Rivera Lymphocytes/100 WBC (Bld) 11.3 % Critically low 20.5-60.0 [facility] Comment on above: Performed By: #### E RUR, UMICRO #### [facility] [address] [place] [address] Dr. Hardeep Rivera MANUAL DIFF REQ NO Normal [facility] Comment on above: Performed By: #### E KATHRIN, UMICRO #### [facility] [address] [place] [address] Dr. Hardeep Rivera MCH (RBC) [Entitic mass] 28.4 pg Normal 26.7-34.0 [facility] Comment on above: Performed By: #### E KATHRIN, UMICRO #### [facility] [address] [place] [address] Dr. Hardeep Rivera MCHC (RBC) [Mass/Vol] 33.6 g/dL Normal 29.9-35.2 [facility] Comment on above: Performed By: #### Deedee PINON, UMICRO #### [facility] [address] [place] [address] Dr. Hardeep Rivera MCV (RBC) [Entitic vol] 84.5 fL Normal 81.0-99.0 [facility] Comment on above: Performed By: #### E KATHRIN, UMICRO #### [facility] [address] [place] [place] [address] Dr. Hardeep Rivera MONO # 1.0 103/ul Critically high 0.3-0.8 [facility] Comment on above: Performed By: #### E KATHRIN, UMICRO #### [facility] [address] [place] [address] Dr. Hardeep Rivera Monocytes/100 WBC (Bld) 12.5 % Critically high 1.7-12.0 [facility] Comment on above: Performed By: #### RANDALL OLSON #### [facility] [address] [place] [address] Dr. Hardeep Rivera NEUT # 5.9 103/ul Normal 1.4-6.5 [facility] Comment on above: Performed By: #### RANDALL OLSON #### [facility] [address] [place] [address] Dr. Hardeep Rivera Neutrophils/100 WBC (Bld) 72.7 % Normal 43.0-75.0 [facility] Comment on above: Performed By: #### RANDALL OLSON #### [facility] [address] [place] [address] Dr. Hardeep Rivera Platelet mean volume (Bld) [Entitic vol] 8.6 fL Critically low 9.5-13.5 [facility] Comment on above: Performed By: #### RANDALL OLSON #### [facility] [address] [place] [address] Dr. Hardeep Rivera PLT 226 103/ul Normal 150-450 [facility] Comment on above: Performed By: #### RANDALL OLSON #### [facility] [address] [place] [address] Dr. Hardeep Rivera RBC 4.76 106/ul Normal 4.20-5.40 [facility] Comment on above: Performed By: #### RANDALL OLSON #### [facility] [address] [place] [address] Dr. Hardeep Rivera WBC 8.2 103/ul Normal 4.0-11.0 [facility] Comment on above: Performed By: #### RANDALL OLSON #### [facility] [address] [place] [address] Dr. Hardeep Rivera FREE THYROXINE INDEX T7on FTI 3.40 Normal 1.30-4.50 [facility] Comment on above: Performed By: #### RANDALL OLSON #### [facility] [address] [place] [address] Dr. Hardeep Rivera T3U 34.0 % Normal 30.0-39.0 [facility] Comment on above: Performed By: #### Deedee PINON UMICRO #### [facility] [address] [place] [address] Dr. Hardeep Rivera T4 [Mass/Vol] 10.00 ug/dL Normal 4.80-13.90 [facility] Comment on above: Performed By: #### Deedee PINON, UMICRO #### [facility] [address] [place] [address] Dr. Hardeep Rivera PROF 14(COMP METB)on 023 Albumin [Mass/Vol] 3.8 g/dL Normal 3.4-5.0 [facility] Comment on above: Performed By: #### Deedee PINON UMICRO #### [facility] [address] [place] [address] Dr. Hardeep Rivera Albumin/Globulin [Mass ratio] 1.1 {ratio} Normal [facility] Comment on above: Performed By: #### Deedee PINON UMICRO #### [facility] [address] [place] [address] Dr. Hardeep Rivera ALP [Catalytic activity/Vol] 192 U/L Critically high 46-116 [facility] Comment on above: Performed By: #### Deedee PINON, UMICRO #### [facility] [address] [place] [address] Dr. Hardeep Rivera ALT [Catalytic activity/Vol] 22 U/L Normal 14-59 [facility] Comment on above: Performed By: #### Deedee PINON, UMICRO #### [facility] [address] [place] [address] Dr. Hardeep Rivera Anion gap [Moles/Vol] 11.4 mmol/L Normal [facility] Comment on above: Performed By: #### Deedee PINON, UMICRO #### [facility] [address] [place] [address] Dr. Hardeep Rivera AST [Catalytic activity/Vol] 22 U/L Normal 15-37 [facility] Comment on above: Performed By: #### HARI OLSONRO #### [facility] [address] [address] [address] Hardeep Rivera Bilirubin [Mass/Vol] 0.5 mg/dL Normal 0.2-1.0 [facility] Comment on above: Performed By: #### HARI OLSONRO #### [facility] [address] [place] [address] Dr. Hardeep Rivera Calcium [Mass/Vol] 9.1 mg/dL Normal 8.5-10.1 [facility] Comment on above: Performed By: #### HARI OLSONRO #### [facility] [address] [place] [address] Dr. Hardeep Rivera Chloride [Moles/Vol] 93 mmol/L Critically low 98-107 [facility] Comment on above: Performed By: #### HARI OLSONRO #### [facility] [address] [place] [address] Dr. Hardeep Rivera CO2 [Moles/Vol] 30.8 mmol/L Normal 21.0-32.0 [facility] Comment on above: Performed By: #### HARI OLSONRO #### [facility] [address] [place] [address] Dr. Hardeep Rivera Creatinine [Mass/Vol] 1.49 mg/dL Critically high 0.55-1.02 [facility] Comment on above: Performed By: #### HARI OLSONRO #### [facility] [address] [place] [address] Dr. Hardeep Rivera EGFR-AF LITHUANIAN 41 mL/min/1.73m2 Critically low >=60 [facility] Comment on above: Performed By: #### HARI OLSONRO #### [facility] [address] [place] [address] Dr. Hardeep Rivera EGFR-NON AF LITHUANIAN 34 mL/min/1.73m2 Critically low >=60 [facility] Comment on above: Performed By: #### HARI OLSONRO #### [facility] [address] [address] [address] Hardeep iRvera Globulin (S) [Mass/Vol] 3.4 g/dL Normal [facility] Comment on above: Performed By: #### Deedee PINON, UMICRO #### [facility] [address] [address] [address] Hardeep Rivera Glucose [Mass/Vol] 116 mg/dL Critically high 74-106 [facility] Comment on above: Performed By: #### E KATHRIN, UMICRO #### [facility] [address] [address] [address] Hardeep Rivera Potassium [Moles/Vol] 4.2 mmol/L Normal 3.5-5.1 [facility] Comment on above: Performed By: #### Deedee PINON, UMICRO #### [facility] [address] [place] [address] Dr. Hardeep Rivera Protein [Mass/Vol] 7.2 g/dL Normal 6.4-8.2 [facility] Comment on above: Performed By: #### Deedee PINON UMICRO #### [facility] [address] [address] [address] Hardeep Rivera Sodium [Moles/Vol] 131 mmol/L Critically low 136-145 [facility] Comment on above: Performed By: #### Deedee PINON, UMICRO #### [facility] [address] [address] [address] Hardeep Rivera Urea nitrogen [Mass/Vol] 38.0 mg/dL Critically high 7.0-18.0 [facility] Comment on above: Performed By: #### Deedee PINON UMICRO #### [facility] [address] [address] [address] Hardeep Rivera Urea nitrogen/Creatinine [Mass ratio] 25.5 mg/mg Normal [facility] Comment on above: Performed By: #### Deedee PINON, UMICRO #### [facility] [address] [address] [address] Hardeep Rivera TSHon 12-11-2022 TSH 6.407 uIU/mL Critically high 0.358-3.740 [facility] Comment on above: Performed By: #### E RANDALL PINON #### [facility] [address] [place] [address] Dr. Hardeep Rivera Covid-19 PCR ([facility])on 11-01 SARS-CoV-2 (COVID-19) RNA ULICES+probe Ql (Unsp spec) Not detected Normal NOT DETECTED [facility] Comment on above: Result Comment: This test is not yet approved or cleared by the [place] FDA. When there are no FDA-approved or cleared tests available, and other criteria are met, FDA can make tests available under an emergency access mechanism called an Emergency Use Authorization (EUA). The EUA for this test is supported by the [place] of Health and Human Service's (HHS's) declaration [...] consistent with SARS-CoV-2. Performed By: #### [facility] #### [facility] [address] [place] [address] Dr. Hardeep Rivera INFLUENZA A AND B AGon 11-14 INFLUANEGH SEE BELOW Normal [facility] Comment on above: Result Comment: Nega tive for Flu A protein angiten. Infection due to Flu A cannot be ruled out. Flu A angiten in the sample may be below the detection limit of the test. Performed By: #### RANDALL OLSON #### [facility] [address] [place] [address] Dr. Hardeep Rivera INFLUBNEG SEE BELOW Normal [facility] Comment on above: Result Comment: Nega tive for Flu B protein antigen. Infection due to Flu B cannot be ruled out. Flu B antigen in the sample may be below the detection limit of the test. Performed By: #### E RUR, UMICRO #### [facility] [address] [place] [address] Dr. Hardeep Rivera INFLUENZA A AG Negative Normal NEGATIVE SEE COMMENT [facility] Comment on above: Performed By: #### E RUR, UMICRO #### [facility] [address] [place] [address] Dr. Hardeep Rivera INFLUENZA B AG Negative Normal NEGATIVE SEE COMMENT [facility] Comment on above: Performed By: #### E RUR, UMICRO #### [facility] [address] [place] [address] Dr. Hardeep Rivera INTERNAL CONTROLS Within Normal Limits Normal Wi thin Normal Limits [facility] Comment on above: Performed By: #### E RUR, UMICRO #### [facility] [address] [place] [address] Dr. Hardeep Rivera Covid-19 PCR ([facility])on SARS-CoV-2 (COVID-19) RNA ULICES+probe Ql (Unsp spec) Not detected Normal NOT DETECTED [facility] Comment on above: Result Comment: This test is not yet approved or cleared by the [place] FDA. When there are no FDA-approved or cleared tests available, and other criteria are met, FDA can make tests available under an emergency access mechanism called an Emergency Use Authorization (EUA). The EUA for this test is supported by the [place] of Health and Human Service's (HHS's) declaration [...] SARS-CoV-2. Performed By: #### C VDTBH #### [facility] [address] [place] [address] Dr. Hardeep Rivera INFLUENZA A AND B [facility] 10-03 [facility] SEE BELOW Normal The [facility] Comment on above: Result Comment: Nega tive for Flu A protein angiten. Infection due to Flu A cannot be ruled out. Flu A angiten in the sample may be below the detection limit of the test. Performed By: #### Deedee PINON, UMICRO #### [facility] [address] [place] [address] Dr. [facility] Normal [facility] Comment on above: Result Comment: Nega tive for Flu B protein antigen. Infection due to Flu B cannot be ruled out. Flu B antigen in the sample may be below the detection limit of the test. Performed By: #### Deedee PINON, UMICRO #### [facility] [address] [place] [address] Dr. Hardeep Rivera INFLUENZA A AG Negative Normal NEGATIVE SEE COMMENT [facility] Comment on above: Performed By: #### Deedee PINON, UMICRO #### [facility] [address] [place] [address] Dr. Hardeep Rivera INFLUENZA B AG Negative Normal NEGATIVE SEE COMMENT [facility] Comment on above: Performed By: #### Deedee PINON, UMICRO #### [facility] [address] [place] [address] Dr. Hardeep Rivera INTERNAL CONTROLS Within Normal Limits Normal Wi thin Normal Limits [facility] Comment on above: Performed By: #### Deedee PINON, UMICRO #### [facility] [address] [place] [address] Dr. Hardeep Clark 08-16-2022 NIK Telephone (JULIAN CONNELLY MAI) -- SYLVIA HANNA ([id number]) 1945 F Date Time Provider Department 08/16/22 SOY MCCANN CARD [facility] During your visit today, we [...] mg by mouth three times daily. - wzksxz-blhhvjnp-jyhjius (CREON) 24,000-76,000 -120,000 unit cpDR Take 3 [...] Status:Closed by SOY MCCANN on 08/16/22 Normal [facility] AMYLASEon 08-04-2022 Amylase [Catalytic activity/Vol] 155 U/L Critically high 25-115 [facility] Comment on above: Performed By: #### C MP, LIPA, BRITTNEY ####[facility] [address] [address]DrLaura Rivera CBC AUTO DIFFon 08-04-2022 BASO # 0.0 103/ul Normal 0.0-0.1 [facility] Comment on above: Performed By: #### C BC ####[facility] [address] [address]DrLaura Rivera Basophils/100 WBC (Bld) 0.3 % Normal 0.2-2.0 [facility] Comment on above: Performed By: #### C BC ####[facility] [address] [address]Dr. Hardeep Rivera EO # 0.1 103/ul Normal 0.0-0.7 [facility] Comment on above: Performed By: #### C BC ####[facility] [address] [address]Dr. Hardeep Rivera Eosinophils/100 WBC (Bld) 1.2 % Normal 0.9-7.0 [facility] Comment on above: Performed By: #### C BC ####[facility] [address] [address]Dr. Hardeep Rivera Erythrocyte distribution width (RBC) [Ratio] 12.2 % Normal 11.0-15.0 [facility] Comment on above: Performed By: #### C BC ####[facility] [address] [place], [place] [address]Dr. Hardeep Rivera Hematocrit (Bld) [Volume fraction] 38.3 % Normal 36.0-48.0 [facility] Comment on above: Performed By: #### C BC ####[facility] [address] [place], [place] [address]Dr. Hardeep Rivera Hemoglobin (Bld) [Mass/Vol] 12.9 g/dL Normal 12.0-16.0 [facility] Comment on above: Performed By: #### C BC ####[facility] [address] [place], [place] [address]Dr. Hardeep Rivera IG # 0.02 10e3/ul Normal 0.00-0.03 [facility] Comment on above: Performed By: #### C BC ####[facility] [address] [address]Dr. Hardeep Rivera IG % 0.3 % Normal 0.0-0.5 [facility] Comment on above: Performed By: #### C BC ####[facility] [address] [place], [place] [address]DrLaura Hardeep Rivera LYMPH # 1.1 103/ul Critically low 1.2-3.8 The [facility] Comment on above: Performed By: #### C BC ####[facility] [address] [place] [address]. Hardeep Rivera Lymphocytes/100 WBC (Bld) 16.6 % Critically low 20.5-60.0 [facility] Comment on above: Performed By: #### C BC ####[facility] [address] [address]Dr. Hardeep Rivera MANUAL DIFF REQ NO Normal The [facility] Comment on above: Performed By: #### C BC ####[facility] [address] [address]Dr. Hardeep Rivera MCH (RBC) [Entitic mass] 29.7 pg Normal 26.7-34.0 [facility] Comment on above: Performed By: #### C BC ####[facility] [address] [place], [place] [address]Dr. Hardeep Rivera MCHC (RBC) [Mass/Vol] 33.7 g/dL Normal 29.9-35.2 [facility] Comment on above: Performed By: #### C BC ####[facility] [address] [place], [place] [address]Dr. Hardeep Rivera MCV (RBC) [Entitic vol] 88.2 fL Normal 81.0-99.0 [facility] Comment on above: Performed By: #### C BC ####[facility] [address] [place], [place] [address]Dr. Hardeep Rivera MONO # 0.7 103/ul Normal 0.3-0.8 [facility] Comment on above: Performed By: #### C BC ####[facility] [address] [place], [place] [address]Dr. Hardeep Rivera Monocytes/100 WBC (Bld) 11.1 % Normal 1.7-12.0 [facility] Comment on above: Performed By: #### C BC ####[facility] [address] [place], [place] [address]DrLaura Rivera NEUT # 4.6 103/ul Normal 1.4-6.5 [facility] Comment on above: Performed By: #### C BC ####[facility] [address] [place], [place] [address]Dr. Hardeep Rivera Neutrophils/100 WBC (Bld) 70.5 % Normal 43.0-75.0 [facility] Comment on above: Performed By: #### C BC ####[facility] [address] [place], [place] [address]Zi. Hardeep Rivera Platelet mean volume (Bld) [Entitic vol] 9.4 fL Critically low 9.5-13.5 [facility] Comment on above: Performed By: #### C BC ####[facility] [address] [place], [place] [address]Oc. Hardeep Rivera PLT 203 103/ul Normal 150-450 [facility] Comment on above: Performed By: #### C BC ####[facility] [address] [address]Dr. Hardeep Rivera RBC 4.34 106/ul Normal 4.20-5.40 [facility] Comment on above: Performed By: #### C BC ####[facility] [address] [id number]. Hardeep Rivera WBC 6.5 103/ul Normal 4.0-11.0 [facility] Comment on above: Performed By: #### C BC ####[facility] [id number] Hardeep Rivera CT ABD/PELVIS WO CONon 08-04 [...] ALEXSANDER HARDING Date: 2022-08-04 20:12 Normal [facility] Covid-19 PCR ([facility])on SARS-CoV-2 (COVID-19) RNA ULICES+probe Ql (Unsp spec) Not detected Normal NOT DETECTED The [facility] Comment on above: Result Comment: When diagnostic [...] for this test is supported by the [place] of Health and Human Service's declaration that [...] longer be used). Performed By: #### [facility] ####[facility] [address] [address]Dr. Hardeep Rivera ER URINE PROFILEon 2 Bilirubin Ql (U) Negative Normal NEGATIVE [facility] Comment on above: Performed By: #### E RUR #### [facility] [address] [place] [address] Dr. Hardeep Rivera Clarity (U) CLEAR Normal CLEAR [facility] Comment on above: Performed By: #### E RUR #### [facility] [address] [place] [address] Dr. Hardeep Rivera Color (U) LT. YELLOW Normal YELLOW [facility] Comment on above: Performed By: #### E RUR #### [facility] [address] [place] [address] Dr. Hardeep Rivera ERUAHD A micrscopic examina tion will be performed if indicated. Normal [facility] Comment on above: Performed By: #### E RUR #### [facility] [address] [place] [address] Dr. Hardeep Rivera Glucose Ql (U) Negative Normal NEGATIVE The [facility] Comment on above: Performed By: #### E RUR #### [facility] [address] [place] [address] Dr. Hardeep Rivera Hemoglobin Ql (U) Negative Normal NEGATIVE The [facility] Comment on above: Performed By: #### E RUR #### [facility] [address] [place] [address] Dr. Hardeep Rivera Ketones Ql (U) Negative Normal NEGATIVE [facility] Comment on above: Performed By: #### E RUR #### [facility] [address] [place] [address] Dr. Hardeep Rivera LEUKOCYTES Negative Normal NEGATIVE [facility] Comment on above: Performed By: #### E RUR #### [facility] [address] [place] [address] Dr. Hardeep Rivera Nitrite Ql (U) Negative Normal NEGATIVE [facility] Comment on above: Performed By: #### E RUR #### [facility] [address] [place] [address] Dr. Hardeep Rivera pH (U) 7.0 [pH] Normal 5-9 [facility] Comment on above: Performed By: #### E RUR #### [facility] [address] [place] [address] Dr. Hardeep Rivera SPEC GRAVITY <=1.005 Abnormal 1.005-<=1.[address] [facility] Comment on above: Performed By: #### E RUR #### [facility] [address] [place] [address] Dr. Hardeep Rivera UA PROTEIN Negative Normal NEGATIVE/ TRACE [facility] Comment on above: Performed By: #### E RUR #### [facility] [address] [place] [address] Dr. Hardeep Rivera UR MICRO IND NOT INDICATED Normal [facility] Comment on above: Performed By: #### E RUR #### [facility] [address] [place] [address] Dr. Hardeep Rivera Urobilinogen Qn (U) 0.2 {Kevon'U}/dL Normal 0.2 - 1. 0 [facility] Comment on above: Performed By: #### E RUR #### [facility] [address] [place] [address] Dr. Hardeep Rivera LIPASEon 08-04-2022 Lipase [Catalytic activity/Vol] 1486.0 U/L Critically high 73.0-393.0 [facility] Comment on above: Performed By: #### C ABAD MORE BRITTNEY ####[facility] [address] [address]Dr. Hardeep Rivera PROF 14(COMP METB)on 022 Albumin [Mass/Vol] 3.6 g/dL Normal 3.4-5.0 [facility] Comment on above: Performed By: #### C ABAD MORE, BRITTNEY ####[facility] [address] [address]Dr. Hardeep Rivera Albumin/Globulin [Mass ratio] 1.3 {ratio} Normal [facility] Comment on above: Performed By: #### C ABAD MORE BRITTNEY ####[facility] [address] [place], [place] [address]Dr. Hardeep Rivera ALP [Catalytic activity/Vol] 171 U/L Critically high 46-116 [facility] Comment on above: Performed By: #### C ABAD MORE, BRITTNEY ####[facility] [address] [place], [place] [address]Dr. Hardeep Rivera ALT [Catalytic activity/Vol] 35 U/L Normal 14-59 [facility] Comment on above: Performed By: #### C ABAD MORE BRITTNEY ####[facility] [address] [address]Dr. Hardeep Rivera Anion gap [Moles/Vol] 11.4 mmol/L Normal [facility] Comment on above: Performed By: #### C ABAD MORE, BRITTNEY ####[facility] [address] [address]Dr. Hardeep Rivera AST [Catalytic activity/Vol] 28 U/L Normal 15-37 [facility] Comment on above: Performed By: #### C ABAD MORE, BRITTNEY ####[facility] [address] [address]Dr. Hardeep Rivera Bilirubin [Mass/Vol] 0.7 mg/dL Normal 0.2-1.0 [facility] Comment on above: Performed By: #### C ABAD MORE, BRITTNEY ####[facility] [address] [address]Dr. Hardeep Rivera Calcium [Mass/Vol] 8.4 mg/dL Critically low 8.5-10.1 Th e [facility] Comment on above: Performed By: #### C MP, LIPA, BRITTNEY ####[facility] [address] [address]Dr. Hardeep Rivera Chloride [Moles/Vol] 100 mmol/L Normal 98-107 [facility] Comment on above: Performed By: #### C MP, LIPA, BRITTNEY ####[facility] [address] [place] [address]Dr. Hardeep Rivera CO2 [Moles/Vol] 25.6 mmol/L Normal 21.0-32.0 [facility] Comment on above: Performed By: #### C MP, LIPA, BRITTNEY ####[facility] [address] [place], [place] [address]Dr. Hardeep Rivera Creatinine [Mass/Vol] 1.33 mg/dL Critically high 0.55-1.02 [facility] Comment on above: Performed By: #### C MP, LIPA, BRITTNEY ####[facility] Sl[address] [place], [place] [address]Dr. Hardeep Rivera EGFR-AF LITHUANIAN 47 mL/min/1.73m2 Critically low >=60 [facility] Comment on above: Performed By: #### C MP, LIPA, BRITTNEY ####[facility] [address] [place], [place] [address]Dr. Hardeep Rivera EGFR-NON AF LITHUANIAN 39 mL/min/1.73m2 Critically low >=60 [facility] Comment on above: Performed By: #### C MP, LIPA, BRITTNEY ####[facility] [address] [place], [place] [address]Dr. Hardeep Rivera Globulin (S) [Mass/Vol] 2.7 g/dL Normal [facility] Comment on above: Performed By: #### C MP, LIPA, BRITTNEY ####[facility] [address] [place], [place] [address]Dr. Hardeep Rivera Glucose [Mass/Vol] 108 mg/dL Critically high 74-106 [facility] Comment on above: Performed By: #### C ABAD MORE, BRITTNEY ####[facility] [address] [address]Dr. Preethiarabella Rivera Potassium [Moles/Vol] 4.0 mmol/L Normal 3.5-5.1 [facility] Comment on above: Performed By: #### C ABAD MORE, BRITTNEY ####[facility] [address] [place] [address]Dr. Hardeep Rivera Protein [Mass/Vol] 6.3 g/dL Critically low 6.4-8.2 [facility] Comment on above: Performed By: #### C ABAD MORE, BRITTNEY ####[facility] [address] [address]Dr. Hardeep Rivera Sodium [Moles/Vol] 133 mmol/L Critically low 136-145 [facility] Comment on above: Performed By: #### C ABAD MORE, BRITTNEY ####[facility] [address] [address]Dr. Hardeep Rivera Urea nitrogen [Mass/Vol] 23.0 mg/dL Critically high 7.0-18.0 [facility] Comment on above: Performed By: #### C ABAD MORE, BRITTNEY ####[facility] [address] [place] [address]Dr. Hardeep Rivera Urea nitrogen/Creatinine [Mass ratio] 17.3 mg/mg Normal [facility] Comment on above: Performed By: #### C ABAD MORE, BRITTNEY ####[facility] [address] [address]Dr. Hardeep Rivera BOX TEST SENT OUTon 08-02-20 22 SENT TO REF LAB 08/02/[address] [facility] Comment on above: Performed By: #### E RUR #### [facility] [address] [address] [address] Hardeep Rivera CBC AUTO DIFFon 08-02-2022 BASO # 0.0 103/ul Normal 0.0-0.1 [facility] Comment on above: Performed By: #### HARI OLSONRO #### [facility] [address] [place] [address] Dr. Hardeep Rivera Basophils/100 WBC (Bld) 0.3 % Normal 0.2-2.0 [facility] Comment on above: Performed By: #### HARI OLSONRO #### [facility] [address] [place] [address] Dr. Hardeep Rivera EO # 0.1 103/ul Normal 0.0-0.7 [facility] Comment on above: Performed By: #### HARI OLSONRO #### [facility] [address] [place] [address] Dr. Hardeep Rivera Eosinophils/100 WBC (Bld) 1.4 % Normal 0.9-7.0 [facility] Comment on above: Performed By: #### HARI OLSONRO #### [facility] [address] [place] [address] Dr. Hardeep Rivera Erythrocyte distribution width (RBC) [Ratio] 12.2 % Normal 11.0-15.0 [facility] Comment on above: Performed By: #### RANDALL OLSON #### [facility] [address] [place] [address] Dr. Hardeep Rivera Hematocrit (Bld) [Volume fraction] 41.2 % Normal 36.0-48.0 [facility] Comment on above: Performed By: #### HARI OLSONRO #### [facility] [address] [place] [address] Dr. Hardeep Rivera Hemoglobin (Bld) [Mass/Vol] 13.6 g/dL Normal 12.0-16.0 [facility] Comment on above: Performed By: #### HARI OLSONRO #### [facility] [address] [place] [address] Dr. Hardeep Rivera IG # 0.02 10e3/ul Normal 0.00-0.03 [facility] Comment on above: Performed By: #### E RUR, UMICRO #### [facility] [address] [address] [address] Hardeep Rivera IG % 0.3 % Normal 0.0-0.5 [facility] Comment on above: Performed By: #### E KATHRIN, UMICRO #### [facility] [address] [address] [address] Hardeep Rivera LYMPH # 0.6 103/ul Critically low 1.2-3.8 [facility] Comment on above: Performed By: #### E KATHRIN, UMICRO #### [facility] [address] [place] [address] Dr. Hardeep Rivera Lymphocytes/100 WBC (Bld) 8.9 % Critically low 20.5-60.0 [facility] Comment on above: Performed By: #### Deedee PINON, UMICRO #### [facility] [address] [place] [address] Dr. Hardeep Rivera MANUAL DIFF REQ NO Normal [facility] Comment on above: Performed By: #### Deedee PINON, UMICRO #### [facility] [address] [place] [address] Dr. Hardeep Rivera MCH (RBC) [Entitic mass] 29.6 pg Normal 26.7-34.0 [facility] Comment on above: Performed By: #### Deedee PINON, UMICRO #### [facility] [address] [place] [address] Dr. Hardeep Rivera MCHC (RBC) [Mass/Vol] 33.0 g/dL Normal 29.9-35.2 [facility] Comment on above: Performed By: #### E KATHRIN, UMICRO #### [facility] [address] [place] [address] Dr. Hardeep Rivera MCV (RBC) [Entitic vol] 89.8 fL Normal 81.0-99.0 [facility] Comment on above: Performed By: #### Deedee PINON, UMICRO #### [facility] [address] [place] [address] Dr. Hardeep Rivera MONO # 0.7 103/ul Normal 0.3-0.8 [facility] Comment on above: Performed By: #### RANDALL OLSON #### [facility] [address] [place] [address] Dr. Hardeep Rivera Monocytes/100 WBC (Bld) 11.6 % Normal 1.7-12.0 [facility] Comment on above: Performed By: #### RANDALL OLSON #### [facility] [address] [place] [address] Dr. Hardeep Rivera NEUT # 5.0 103/ul Normal 1.4-6.5 [facility] Comment on above: Performed By: #### RANDALL OLSON #### [facility] [address] [place] [address] Dr. Hardeep Rivera Neutrophils/100 WBC (Bld) 77.5 % Critically high 43.0-75.0 [facility] Comment on above: Performed By: #### RANDALL OLSON #### [facility] [address] [place] [address] Dr. Hardeep Rivera Platelet mean volume (Bld) [Entitic vol] 9.4 fL Critically low 9.5-13.5 [facility] Comment on above: Performed By: #### RANDALL OLSON #### [facility] [address] [place] [address] Dr. Hardeep Rivera PLT 200 103/ul Normal 150-450 [facility] Comment on above: Performed By: #### HARI OLSONRO #### [facility] [address] [place] [address] Dr. Hardeep Rivera RBC 4.59 106/ul Normal 4.20-5.40 [facility] Comment on above: Performed By: #### HARI OLSONRO #### [facility] [address] [place] [address] Dr. Hardeep Rivera WBC 6.4 103/ul Normal 4.0-11.0 [facility] Comment on above: Performed By: #### RANDALL OLSON #### [facility] [address] [address] [address] Hardeep Clark 08-02-2022 [facility] Telephone (CARD CHF ISACC) -- SYLVIA HANNA ([id number]) 1945 F Date Time Provider Department 08/02/22 LOIDA MATHIAS CARD [facility] During your visit today, we [...] will be transferring her care. Loida Mathias APRN.TITLE INSURANCE AGENT August 07, 2022 10:27 AM Allergies As [...] mg by mouth three times daily. - ktittc-fdewlhve-pbawwkd (CREON) 24,000-76,000 -120,000 unit cpDR Take 3 [...] Status:Closed by LINDEN WEEMS on 08/02/22 Normal [facility] PROF CHEM 8 (BAS METB)on Anion gap [Moles/Vol] 12.2 mmol/L Normal [facility] Comment on above: Performed By: #### RANDALL OLSON #### [facility] [address] [place] [address] Dr. Hardeep Rivera Calcium [Mass/Vol] 8.6 mg/dL Normal 8.5-10.1 [facility] Comment on above: Performed By: #### RANDALL OLSON #### [facility] [address] [place] [address] Dr. Hardeep Rivera Chloride [Moles/Vol] 98 mmol/L Normal 98-107 [facility] Comment on above: Performed By: #### RANDALL OLSON #### [facility] [address] [place] [address] Dr. Hardeep Rivera CO2 [Moles/Vol] 27.7 mmol/L Normal 21.0-32.0 [facility] Comment on above: Performed By: #### RANDALL OLSON #### [facility] [address] [place] [address] Dr. Hardeep Rivera Creatinine [Mass/Vol] 1.42 mg/dL Critically high 0.55-1.02 [facility] Comment on above: Performed By: #### RANDALL OLSON #### [facility] [address] [place] [address] Dr. Hardeep Rivera EGFR-AF LITHUANIAN 43 mL/min/1.73m2 Critically low >=60 [facility] Comment on above: Performed By: #### RANDALL OLSON #### [facility] [address] [place] [address] Dr. Hardeep Rivera EGFR-NON AF LITHUANIAN 36 mL/min/1.73m2 Critically low >=60 [facility] Comment on above: Performed By: #### RANDALL OLSON #### [facility] [address] [address] [address] Hardeep Rivera Glucose [Mass/Vol] 119 mg/dL Critically high 74-106 [facility] Comment on above: Performed By: #### E KATHRIN, UMICRO #### [facility] [address] [place] [address] Dr. Hardeep Rivera Potassium [Moles/Vol] 3.9 mmol/L Normal 3.5-5.1 [facility] Comment on above: Performed By: #### E COLLINSR, UMICRO #### [facility] [address] [place] [address] Dr. Hardeep Rivera Sodium [Moles/Vol] 134 mmol/L Critically low 136-145 Th [facility] Comment on above: Performed By: #### Deedee PINON, UMICRO #### [facility] [address] [place] [address] Dr. Hardeep Rivera Urea nitrogen [Mass/Vol] 21.0 mg/dL Critically high 7.0-18.0 [facility] Comment on above: Performed By: #### Deedee PINON, UMICRO #### [facility] [address] [place] [address] Dr. Hardeep Rivera Urea nitrogen/Creatinine [Mass ratio] 14.8 mg/mg Normal [facility] Comment on above: Performed By: #### Deedee PINON, UMICRO #### [facility] [address] [place] [address] Dr. Hardeep Rivera [facility] Tacrolimus (Bld) [Mass/Vol] 4.7 ng/mL Low 5.0-20.0 [facility] Comment on above: Order Comment: Speci [...] Test performed by chemiluminescent immunoassay using [employer]. Performed By: #### 1 1253-2 ####[facility] LABCLIA [id number] [address] [place] [id number] [place] Eduardo 07-05-2022 CNPN Telephone (CARD CHF ISACC) -- SYLVIA HANNA ([id number]) 1945 F Date Time Provider Department 07/05/22 SHO CROWLEY [facility] During your visit today, we [...] care with another team. Sho Crowley APRN, TITLE INSURANCE AGENT Pager: [phone] July 05, 2022 10:42 AM Post Heart [...] transplant. No Dr Caldera: Rfl: TACROLIMUS/FK-506 BL [[id number]] Order #: [id number] FUTURE Prescriptions as of 07/05/2022 - tacrolimus [...] mg by mouth three times daily. - zdgjlt-xxehtyve-wdsgusd (CREON) 24,000-76,000 -120,000 unit cpDR Take 3 [...] 09/02/2019 A (more content not included)... Normal [facility]jas BOX TEST SENT OUTon 07-03-20 22 SENT TO REF LAB 07/03/2022 Normal [facility] Comment on above: Performed By: #### E RURANDALL Chambers #### [facility] [address] [place] [address] Dr. Hardeep Rivera CBC AUTO DIFFon 07-03-2022 BASO # 0.0 103/ul Normal 0.0-0.1 [facility] Comment on above: Performed By: #### C BC #### [facility] [address] [place] [address] Dr. Hardeep Rivera Basophils/100 WBC (Bld) 0.3 % Normal 0.2-2.0 [facility] Comment on above: Performed By: #### C BC #### [facility] [address] [place] [address] Dr. Hardeep Rivera EO # 0.1 103/ul Normal 0.0-0.7 [facility] Comment on above: Performed By: #### C BC #### [facility] [address] [place] [address] Dr. Hardeep Rivera Eosinophils/100 WBC (Bld) 0.9 % Normal 0.9-7.0 [facility] Comment on above: Performed By: #### C BC #### [facility] [address] [place] [address] Dr. Hardeep Rivera Erythrocyte distribution width (RBC) [Ratio] 12.2 % Normal 11.0-15.0 [facility] Comment on above: Performed By: #### C BC #### [facility] [address] [place] [address] Dr. Hardeep Rivera Hematocrit (Bld) [Volume fraction] 42.3 % Normal 36.0-48.0 [facility] Comment on above: Performed By: #### C BC #### [facility] [address] [address] [address] Hardeep Rivera Hemoglobin (Bld) [Mass/Vol] 14.0 g/dL Normal 12.0-16.0 [facility] Comment on above: Performed By: #### C BC #### [facility] [address] [place] [address] Dr. Hardeep Rivera IG # 0.04 10e3/ul Critically high 0.00-0.03 [facility] Comment on above: Performed By: #### C BC #### [facility] [address] [place] [address] Dr. Hardeep Rivera IG % 0.5 % Normal 0.0-0.5 [facility] Comment on above: Performed By: #### C BC #### [facility] [address] [place] [address] Dr. Hardeep Rivera LYMPH # 0.8 103/ul Critically low 1.2-3.8 [facility] Comment on above: Performed By: #### C BC #### [facility] [address] [place] [address] Dr. Hardeep Rivera Lymphocytes/100 WBC (Bld) 10.9 % Critically low 20.5-60.0 [facility] Comment on above: Performed By: #### C BC #### [facility] [address] [place] [address] Dr. Hardeep Rivera MANUAL DIFF REQ NO Normal [facility] Comment on above: Performed By: #### C BC #### [facility] [address] [place] [address] Dr. Hardeep Rivera MCH (RBC) [Entitic mass] 29.7 pg Normal 26.7-34.0 [facility] Comment on above: Performed By: #### C BC #### [facility] [address] [place] [address] Dr. Hardeep Rivera MCHC (RBC) [Mass/Vol] 33.1 g/dL Normal 29.9-35.2 [facility] Comment on above: Performed By: #### C BC #### [facility] [address] [address] [address] Hardeep Rivera MCV (RBC) [Entitic vol] 89.8 fL Normal 81.0-99.0 [facility] Comment on above: Performed By: #### C BC #### [facility] [address] [address] [address] Hardeep Rivera MONO # 0.9 103/ul Critically high 0.3-0.8 [facility] Comment on above: Performed By: #### C BC #### [facility] [address] [address] [address] Hardeep Rivera Monocytes/100 WBC (Bld) 11.1 % Normal 1.7-12.0 [facility] Comment on above: Performed By: #### C BC #### [facility] [address] [address] [address] Hardeep Rivera NEUT # 5.8 103/ul Normal 1.4-6.5 [facility] Comment on above: Performed By: #### C BC #### [facility] [address] [address] [address] Hardeep Rivera Neutrophils/100 WBC (Bld) 76.3 % Critically high 43.0-75.0 [facility] Comment on above: Performed By: #### C BC #### [facility] [address] [address] [address] Hardeep Rivera Platelet mean volume (Bld) [Entitic vol] 9.5 fL Normal 9.5-13.5 [facility] Comment on above: Performed By: #### C BC #### [facility] [address] [address] [address] Hardeep Rivera PLT 191 103/ul Normal 150-450 [facility] Comment on above: Performed By: #### C BC #### [facility] [address] [address] [address] Hardeep Rivera RBC 4.71 106/ul Normal 4.20-5.40 [facility] Comment on above: Performed By: #### C BC #### [facility] [address] [place], [place] [address] Dr. Hardeep Rivera WBC 7.6 103/ul Normal 4.0-11.0 [facility] Comment on above: Performed By: #### C BC #### [facility] [address] [place], [place] [address] Dr. Hardeep Clark 07-03-2022 CNPN Telephone (CARD CHF ISACC) -- SYLVIA HANNA ([id number]) 1945 F Date Time Provider Department 07/03/22 SOY MCCANN CARD [facility] During your visit today, we recorded the following information about you: Linden Rolandcarlos 07/03/2022 1:02 PM Signed Patient had labs drawn 07/03/22, uploaded to [employer] docs. Allergies As of Date: 07/03/2022 Noted [...] mg by mouth three times daily. - tbsapq-jzumikqd-wbsknvi (CREON) 24,000-76,000 -120,000 unit cpDR Take 3 [...] Status:Closed by LINDEN WEEMS on 07/03/22 Normal [facility] PROF CHEM 8 (BAS METB)on Anion gap [Moles/Vol] 12.9 mmol/L Normal [facility] Comment on above: Performed By: #### RANDALL OLSON #### [facility] [address] [address] [address] Hardeep Rivera Calcium [Mass/Vol] 9.0 mg/dL Normal 8.5-10.1 [facility] Comment on above: Performed By: #### HARI OLSONRO #### [facility] [address] [place] [address] Dr. Hardeep Rivera Chloride [Moles/Vol] 98 mmol/L Normal 98-107 [facility] Comment on above: Performed By: #### HARI OLSONRO #### [facility] [address] [place] [address] Dr. Hardeep Rivera CO2 [Moles/Vol] 28.1 mmol/L Normal 21.0-32.0 [facility] Comment on above: Performed By: #### HARI OLSONRO #### [facility] [address] [place] [address] Dr. Hardeep Rivera Creatinine [Mass/Vol] 1.64 mg/dL Critically high 0.55-1.02 [facility] Comment on above: Performed By: #### RANDALL OLSON #### [facility] [address] [place] [address] Dr. Hardeep Rivera EGFR-AF LITHUANIAN 37 mL/min/1.73m2 Critically low >=60 [facility] Comment on above: Performed By: #### HARI OLSONRO #### [facility] [address] [place] [address] Dr. Hardeep Rivera EGFR-NON AF LITHUANIAN 30 mL/min/1.73m2 Critically low >=60 [facility] Comment on above: Performed By: #### HARI OLSONRO #### [facility] [address] [place] [address] Dr. Hardeep Rivera Glucose [Mass/Vol] 114 mg/dL Critically high 74-106 [facility] Comment on above: Performed By: #### HARI OLSONRO #### [facility] [address] [address] [address] Hardeep Rivera Potassium [Moles/Vol] 4.0 mmol/L Normal 3.5-5.1 [facility] Comment on above: Performed By: #### HARI OLSONRO #### [facility] [address] [address] [address] Hardeep Rivera Sodium [Moles/Vol] 135 mmol/L Critically low 136-145 Th [facility] Comment on above: Performed By: #### HARI OLSONRO #### [facility] [address] [address] [address] Hardeep Rivera Urea nitrogen [Mass/Vol] 24.0 mg/dL Critically high 7.0-18.0 [facility] Comment on above: Performed By: #### HARI OLSONRO #### [facility] [address] [place] [address] Dr. Hardeep Rivera Urea nitrogen/Creatinine [Mass ratio] 14.6 mg/mg Normal [facility] Comment on above: Performed By: #### HARI OLSONRO #### [facility] [address] [place] [address] Dr. Hardeep Rivera Tacrolimus Bld-[facility] 2021 Tacrolimus (Bld) [Mass/Vol] 12.4 ng/mL Normal 5.0-20.0 [facility] Comment on above: Order Comment: Speci [...] Test performed by chemiluminescent immunoassay using [employer]. Performed By: #### 1 1253-2 ####[facility] LABCLIA [id number] [address] OF [place] MG MAMM SCREEN 3D TRISHA CADon 05-28-2022 MG MAMM SCREEN 3D TRISHA CAD Patient: SYLVIA HANNA. Exam Date: 05/28/2022 : 1945 Gender:F Ordering : DR TAO DAVIS . Admission #: [id number] Family : Order #: [id number] CLICK HERE TO VIEW EXAM RADIOLOGY REPORT [...] Treatments None Family Cancers None LOCATION: [facility] BREAST COMPOSITION: Heterogeneously dense,which may obscure small [...] on 05/28/2022 at 10:20 Normal [facility] 05-08-2022 [facility] Telephone (CARD [facility]) -- SYLVIA HANNA ([id number]) 1945 F Date Time Provider Department 05/08/22 LOIDA MATHIAS [facility] During your visit today, we recorded the following information about you: Linden Weems 05/08/2022 11:50 AM Signed Patient had labs drawn 05/07/22, uploaded to scanned docs. Linden Faustina Administrative Lining Marker Loida Mathias APRN.CNP 05/08/2022 3:21 PM Signed [...] transplant. No Dr Ellerp: Rfl: TACROLIMUS/FK-506 BL [[id number]] Order #: [id number] FUTURE Prescriptions as of 05/08/2022 - tacrolimus [...] mg by mouth three times daily. - kunxim-qlygrskd-tmniyrl (CREON) 24,000-76,000 -120,000 unit cpDR Take 3 [...] 05/19/2014 [facility] (more content not included)... Normal [facility] BOX TEST SENT OUTon 05-07-20 22 SENT TO REF LAB 05/07/2022 Normal [facility] Comment on above: Performed By: #### RANDALL OLSON #### [facility] [address] [address] [address] Hardeep Rivera CBC AUTO DIFFon 05-07-2022 BASO # 0.0 103/ul Normal 0.0-0.1 [facility] Comment on above: Performed By: #### RANDALL OLSON #### [facility] [address] [address] [address] Hardeep Rivera Basophils/100 WBC (Bld) 0.4 % Normal 0.2-2.0 [facility] Comment on above: Performed By: #### RANDALL OLSON #### [facility] [address] [place] [address] Dr. Hardeep Rivera EO # 0.1 103/ul Normal 0.0-0.7 [facility] Comment on above: Performed By: #### RANDALL OLSON #### [facility] [address] [place] [address] Dr. Hardeep Rivera Eosinophils/100 WBC (Bld) 1.0 % Normal 0.9-7.0 [facility] Comment on above: Performed By: #### RANDALL OLSON #### [facility] [address] [place] [address] Dr. Hardeep Rivera Erythrocyte distribution width (RBC) [Ratio] 12.6 % Normal 11.0-15.0 [facility] Comment on above: Performed By: #### RANDALL OLSON #### [facility] [address] [place] [address] Dr. Hardeep Rivera Hematocrit (Bld) [Volume fraction] 44.0 % Normal 36.0-48.0 [facility] Comment on above: Performed By: #### RANDALL OLSON #### [facility] [address] [place] [address] Dr. Hardeep Rivera Hemoglobin (Bld) [Mass/Vol] 14.0 g/dL Normal 12.0-16.0 [facility] Comment on above: Performed By: #### HARI OLSONRO #### [facility] [address] [place] [address] Dr. Hardeep Rivera IG # 0.02 10e3/ul Normal 0.00-0.03 [facility] Comment on above: Performed By: #### HARI OLSONRO #### [facility] [address] [place] [address] Dr. Hardeep Rivera IG % 0.3 % Normal 0.0-0.5 [facility] Comment on above: Performed By: #### HARI OLSONRO #### [facility] [address] [place] [address] Dr. Hardeep Rivera LYMPH # 0.6 103/ul Critically low 1.2-3.8 [facility] Comment on above: Performed By: #### E RUR, UMICRO #### [facility] [address] [place] [address] Dr. Hardeep Rivera Lymphocytes/100 WBC (Bld) 8.2 % Critically low 20.5-60.0 [facility] Comment on above: Performed By: #### E RUR, UMICRO #### [facility] [address] [place] [address] Dr. Hardeep Rivera MANUAL DIFF REQ NO Normal [facility] Comment on above: Performed By: #### E RUTrish, UMICRO #### [facility] [address] [place] [address] Dr. Hardeep Rivera MCH (RBC) [Entitic mass] 29.4 pg Normal 26.7-34.0 [facility] Comment on above: Performed By: #### Deedee PINON UMICRO #### [facility] [address] [place] [address] Dr. Hardeep Rivera MCHC (RBC) [Mass/Vol] 31.8 g/dL Normal 29.9-35.2 [facility] Comment on above: Performed By: #### E KATHRIN, UMICRO #### [facility] [address] [place] [address] Dr. Hardeep Rivera MCV (RBC) [Entitic vol] 92.2 fL Normal 81.0-99.0 [facility] Comment on above: Performed By: #### Deedee PINON, UMICRO #### [facility] [address] [place] [address] Dr. Hardeep Rivera MONO # 0.8 103/ul Normal 0.3-0.8 [facility] Comment on above: Performed By: #### E RUR, UMICRO #### [facility] [address] [place] [address] Dr. Hardeep Rivera Monocytes/100 WBC (Bld) 9.6 % Normal 1.7-12.0 [facility] Comment on above: Performed By: #### RANDALL OLSON #### [facility] [address] [place] [address] Dr. Hardeep Rivera NEUT # 6.3 103/ul Normal 1.4-6.5 [facility] Comment on above: Performed By: #### RANDALL OLSON #### [facility] [address] [place] [address] Dr. Hardeep Rivera Neutrophils/100 WBC (Bld) 80.5 % Critically high 43.0-75.0 [facility] Comment on above: Performed By: #### RANDALL OLSON #### [facility] [address] [place] [address] Dr. Hardeep Rivera Platelet mean volume (Bld) [Entitic vol] 10.1 fL Normal 9.5-13.5 [facility] Comment on above: Performed By: #### RANDALL OLSON #### [facility] [address] [place] [address] Dr. Hardeep Rivera PLT 188 103/ul Normal 150-450 [facility] Comment on above: Performed By: #### RANDALL OLSON #### [facility] [address] [place] [address] Dr. Hardeep Rivera RBC 4.77 106/ul Normal 4.20-5.40 [facility] Comment on above: Performed By: #### RANDALL OLSON #### [facility] [address] [place] [address] Dr. Hardeep Rivera WBC 7.8 103/ul Normal 4.0-11.0 [facility] Comment on above: Performed By: #### RANDALL OLSON #### [facility] [address] [place] [address] Dr. Hardeep Rivera PROF CHEM 8 (BAS METB)on Anion gap [Moles/Vol] 11.9 mmol/L Normal [facility] Comment on above: Performed By: #### RANDALL OLSON #### [facility] [address] [place] [address] Dr. Hardeep Rivera Calcium [Mass/Vol] 8.7 mg/dL Normal 8.5-10.1 [facility] Comment on above: Performed By: #### E KATHRIN UMICRO #### [facility] [address] [place] [address] Dr. Hardeep Rivera Chloride [Moles/Vol] 99 mmol/L Normal 98-107 [facility] Comment on above: Performed By: #### E KATHRIN UMICRO #### [facility] [address] [place] [address] Dr. Hardeep Rivera CO2 [Moles/Vol] 27.1 mmol/L Normal 21.0-32.0 [facility] Comment on above: Performed By: #### Deedee PINON UMICRO #### [facility] [address] [place] [address] Dr. Hardeep Rivera Creatinine [Mass/Vol] 1.62 mg/dL Critically high 0.55-1.02 [facility] Comment on above: Performed By: #### Deedee PINON UMICRO #### [facility] [address] [place] [address] Dr. Hardeep Rivera EGFR-AF LITHUANIAN 37 mL/min/1.73m2 Critically low >=60 [facility] Comment on above: Performed By: #### Deedee PINON UMICRO #### [facility] [address] [place] [address] Dr. Hardeep Rivera EGFR-NON AF LITHUANIAN 31 mL/min/1.73m2 Critically low >=60 [facility] Comment on above: Performed By: #### Deedee PINON UMICRO #### [facility] [address] [place] [address] Dr. Hardeep Rivera Glucose [Mass/Vol] 73 mg/dL Critically low 74-106 [facility] Comment on above: Performed By: #### Deedee PINON UMICRO #### [facility] [address] [place] [address] Dr. Hardeep Rivera Potassium [Moles/Vol] 4.0 mmol/L Normal 3.5-5.1 [facility] Comment on above: Performed By: #### RANDALL OLSON #### [facility] [address] [place] [address] Dr. Hardeep Rivera Sodium [Moles/Vol] 134 mmol/L Critically low 136-145 [facility] Comment on above: Performed By: #### RANDALL OLSON #### [facility] [address] [place] [address] Dr. Hardeep Rivera Urea nitrogen [Mass/Vol] 33.0 mg/dL Critically high 7.0-18.0 [facility] Comment on above: Performed By: #### RANDALL OLSON #### [facility] [address] [place] [address] Dr. Hardeep Rivera Urea nitrogen/Creatinine [Mass ratio] 20.4 mg/mg Normal [facility] Comment on above: Performed By: #### RANDALL OLSON #### [facility] [address] [place] [address] Dr. Hardeep Rivera TACROLIMUS/FK-506 BLon 05-07 Tacrolimus (Bld) [Mass/Vol] 3.4 ng/mL Low 5.0-20.0 [facility] Comment on above: Order Comment: Speci [...] Test performed by chemiluminescent immunoassay using [employer]. Performed By: #### F K506 ####[facility] [id number] [address] [place] CNPMary Kay 05-03-2022 CNPN Telephone (CARD CHF ISACC) -- SYLVIA HANNA ([id number]) 1945 F Date Time Provider Department 05/03/22 SHO CROWLEY [facility] During your visit today, we recorded the following information about you: Sho Crowley APRN.TITLE INSURANCE AGENT 05/03/2022 2:58 PM Signed received phone call from [facility] Cardiology group requesting patient's Tacrolimus levels from 04/24. Faxed results to [phone]. Allergies As of Date: 05/03/2022 Noted Allergy [...] mg by mouth three times daily. - yfelgs-reufozed-fxqhszu (CREON) 24,000-76,000 -120,000 unit cpDR Take 3 [...] Status:Closed by SHO CROWLEY on 05/03/22 Normal [facility] BOX TEST SENT OUTon 04-24-20 SENT TO REF LAB 04/24/2022 Normal [facility] Comment on above: Performed By: #### RANDALL OLSON #### [facility] [address] [place] [address] Dr. Hardeep Clark 04-24-2022 ODETTEN Telephone (CARD CHF ISACC) -- SYLVIA HANNA ([id number]) 1945 F Date Time Provider Department 04/24/22 LOIDA MATHIAS [facility] During your visit today, we recorded the following information about you: Linden Weems 04/24/2022 1:31 PM Signed Patient left message that she had labs drawn today. Linden Weems Administrative Lining Marker Post Heart Transplant J3-4 Loida Mathias APRN.CNP 04/26/2022 11:25 AM Signed Received FK level 4.5, drawn 04/24 My chart message sent to patient. Advised to remain on current dose and keep our office updated re: her plans for post transplant follow up. Loida Mathias APRN.TITLE INSURANCE AGENT April 26, 2022 11:24 AM Component Latest [...] mg by mouth three times daily. - clupms-crafjnif-ykheyjg (CREON) 24,000-76,000 -120,000 unit cpDR Take 3 [...] Status:Closed by LINDEN WEEMS on 04/24/22 Normal [facility] TACROLIMUS/FK-506 BLon 04-24 Tacrolimus (Bld) [Mass/Vol] 4.5 ng/mL Low 5.0-20.0 [facility] Comment on above: Order Comment: Speci [...] situation. Test performed by chemiluminescent immunoassay using [employer]. Performed By: #### F K506 ####[facility] [id number] [place] [address] [place] FK506 (TACROLIMUS) WHOLE BLO ODon 04-11-2022 Tacrolimus (FK506), Blood 7.3 ng/mL Normal 2.0-20.0 [facility] Comment on above: Result Comment: Trou gh (immediately following transplant) 15.0 . Trough (steady state, 2 weeks or more after transplant): 3.0 - 8.0 . Performed by LC-MS/MS technology. Performed By: #### RANDALL OLSON #### [facility] [address] [place] [address] Dr. Hardeep Rivera BOX TEST SENT OUTon 04-09-20 22 SENT TO REF LAB 04/09/2022 Normal [facility] Comment on above: Performed By: #### RANDALL OLSON #### [facility] [address] [address] [address] Hardeep Rivera CBC AUTO DIFFon 04-09-2022 BASO # 0.0 103/ul Normal 0.0-0.1 [facility] Comment on above: Performed By: #### RANDALL OLSON #### [facility] [address] [place] [address] Dr. Hardeep Rivera Basophils/100 WBC (Bld) 0.1 % Critically low 0.2-2.0 [facility] Comment on above: Performed By: #### RANDALL OLSON #### [facility] [address] [place] [address] Dr. Hardeep Rivera EO # 0.1 103/ul Normal 0.0-0.7 [facility] Comment on above: Performed By: #### RANDALL OLSON #### [facility] [address] [place] [address] Dr. Hardeep Rivera Eosinophils/100 WBC (Bld) 1.2 % Normal 0.9-7.0 [facility] Comment on above: Performed By: #### RANDALL OLSON #### [facility] [address] [place] [address] Dr. Hardeep Rivera Erythrocyte distribution width (RBC) [Ratio] 12.6 % Normal 11.0-15.0 [facility] Comment on above: Performed By: #### RANDALL OLSON #### [facility] [address] [place] [address] Dr. Hardeep Rivera Hematocrit (Bld) [Volume fraction] 44.1 % Normal 36.0-48.0 [facility] Comment on above: Performed By: #### RANDALL OLSON #### [facility] [address] [place] [address] Dr. Hardeep Rivera Hemoglobin (Bld) [Mass/Vol] 14.1 g/dL Normal 12.0-16.0 [facility] Comment on above: Performed By: #### RANDALL OLSON #### [facility] [address] [place] [address] Dr. Hardeep Rivera IG # 0.02 10e3/ul Normal 0.00-0.03 [facility] Comment on above: Performed By: #### RANDALL OLSON #### [facility] [address] [place] [address] Dr. Hardeep Rivera IG % 0.3 % Normal 0.0-0.5 [facility] Comment on above: Performed By: #### RANDALL OLSON #### [facility] [address] [place] [address] Dr. Hardeep Rivera LYMPH # 0.7 103/ul Critically low 1.2-3.8 [facility] Comment on above: Performed By: #### AKSHAT OLSONICRO #### [facility] [address] [place] [address] Dr. Hardeep Rivera Lymphocytes/100 WBC (Bld) 10.8 % Critically low 20.5-60.0 [facility] Comment on above: Performed By: #### AKSHAT OLSONICRO #### [facility] [address] [place] [address] Dr. Hardeep Rivera MANUAL DIFF REQ NO Normal [facility] Comment on above: Performed By: #### AKSHAT OLSONICRO #### [facility] [address] [place] [address] Dr. Hardeep Rivera MCH (RBC) [Entitic mass] 29.3 pg Normal 26.7-34.0 [facility] Comment on above: Performed By: #### AKSHAT OLSONICRO #### [facility] [address] [place] [address] Dr. Hardeep Rivera MCHC (RBC) [Mass/Vol] 32.0 g/dL Normal 29.9-35.2 [facility] Comment on above: Performed By: #### Deedee PINON UMICRO #### [facility] [address] [place] [address] Dr. Hardeep Rivera MCV (RBC) [Entitic vol] 91.7 fL Normal 81.0-99.0 [facility] Comment on above: Performed By: #### Deedee PINON UMICRO #### [facility] [address] [place] [address] Dr. Hardeep Rivera MONO # 0.7 103/ul Normal 0.3-0.8 [facility] Comment on above: Performed By: #### Deedee PINON UMICRO #### [facility] [address] [place] [address] Dr. Hardeep Rivera Monocytes/100 WBC (Bld) 10.8 % Normal 1.7-12.0 [facility] Comment on above: Performed By: #### AKSHAT OLSONICRO #### [facility] [address] [place] [address] Dr. Hardeep Rivera NEUT # 5.2 103/ul Normal 1.4-6.5 [facility] Comment on above: Performed By: #### Deedee PINON UMICRO #### [facility] [address] [place] [address] Dr. Hardeep Rivera Neutrophils/100 WBC (Bld) 76.8 % Critically high 43.0-75.0 [facility] Comment on above: Performed By: #### Deedee PINON UMICRO #### [facility] [address] [place] [address] Dr. Haredep Rivera Platelet mean volume (Bld) [Entitic vol] 9.8 fL Normal 9.5-13.5 [facility] Comment on above: Performed By: #### Deedee PINON UMICRO #### [facility] [address] [place] [address] Dr. Hardeep Rivera PLT 200 103/ul Normal 150-450 [facility] Comment on above: Performed By: #### HARI OLSONRO #### [facility] [address] [place] [address] Dr. Hardeep Rivera RBC 4.81 106/ul Normal 4.20-5.40 [facility] Comment on above: Performed By: #### HARI OSLONRO #### [facility] [address] [place] [address] Dr. Hardeep Rivera WBC 6.7 103/ul Normal 4.0-11.0 [facility] Comment on above: Performed By: #### Deedee PINON UMICRO #### [facility] [address] [place] [address] Dr. Hardeep Rivera PROF CHEM 8 (BAS METB)on Anion gap [Moles/Vol] 9.1 mmol/L Normal [facility] Comment on above: Performed By: #### Deedee PINON UMICRO #### [facility] [address] [place] [address] Dr. Hardeep Rivera Calcium [Mass/Vol] 8.3 mg/dL Critically low 8.5-10.1 [facility] Comment on above: Performed By: #### AKSHAT OLSONICRO #### [facility] [address] [place] [address] Dr. Hardeep Rivera Chloride [Moles/Vol] 100 mmol/L Normal 98-107 [facility] Comment on above: Performed By: #### Deedee PINON UMICRO #### [facility] [address] [place] [address] Dr. Hardeep Rivera CO2 [Moles/Vol] 28.1 mmol/L Normal 21.0-32.0 [facility] Comment on above: Performed By: #### Deedee PINON UMICRO #### [facility] [address] [place] [address] Dr. Hardeep Rivera Creatinine [Mass/Vol] 1.54 mg/dL Critically high 0.55-1.02 [facility] Comment on above: Performed By: #### Deedee PINON UMICRO #### [facility] [address] [place] [address] Dr. Hardeep Rivera EGFR-AF LITHUANIAN 40 mL/min/1.73m2 Critically low >=60 [facility] Comment on above: Performed By: #### Deedee PINON UMICRO #### [facility] [address] [place] [address] Dr. Hardeep Rivera EGFR-NON AF LITHUANIAN 33 mL/min/1.73m2 Critically low >=60 [facility] Comment on above: Performed By: #### Deedee PINON, UMICRO #### [facility] [address] [place] [address] Dr. Hardeep Rivera Glucose [Mass/Vol] 122 mg/dL Critically high 74-106 [facility] Comment on above: Performed By: #### Deedee PINON, UMICRO #### [facility] [address] [place] [address] Dr. Hardeep Rivera Potassium [Moles/Vol] 4.2 mmol/L Normal 3.5-5.1 [facility] Comment on above: Performed By: #### E RUR, UMICRO #### [facility] [address] [address] [address] Hardeep Rivera Sodium [Moles/Vol] 133 mmol/L Critically low 136-145 [facility] Comment on above: Performed By: #### E COLLINSR, UMICRO #### [facility] [address] [place] [address] Dr. Hardeep Rivera Urea nitrogen [Mass/Vol] 28.0 mg/dL Critically high 7.0-18.0 [facility] Comment on above: Performed By: #### E KATHRIN UMICRO #### [facility] [address] [address] [address] Hardeep Rivera Urea nitrogen/Creatinine [Mass ratio] 18.2 mg/mg Normal [facility] Comment on above: Performed By: #### E HARI PINONRO #### [facility] [address] [place] [address] Dr. Hardeep Rivera TACROLIMUS/FK-506 BLon 04-09 Tacrolimus (Bld) [Mass/Vol] 9.9 ng/mL Normal 5.0-20.0 [facility] Comment on above: Order Comment: Speci [...] Test performed by chemiluminescent immunoassay using [employer]. Performed By: #### F K506 ####[facility] [id number] [address] [place] CNPMary Kay 10-10-2021 CNPN Telephone [facility] -- SYLVIA HANNA ([id number]) 1945 F Date Time Provider Department 10/10/21 LOIDA MATHIAS [facility] During your visit today, we recorded the following information about you: Linden Weems 10/10/2021 11:57 AM Signed Patient had labs drawn today Linden Weems Administrative Lining Marker Linden Weems 10/11/2021 10:57 AM Signed Labs uploaded to scanned docs. Linden Weems Administrative Lining Marker Loida Mathias APRN.CNP 10/12/2021 12:28 PM Signed Received outside labs drawn 10/10 -- FK 10.1 Cr 1.4 BUN 24 K 4.8 FBS 105 WBC 8300 Hgb 13 Hct 42 Plts 209 Called and left message for patient. Advised if this was a good 12 hr trough, to reduce Tacrolimus to 0.5 mg BID. Repeat labs in 2 weeks. Lioda Mathias APRN.CNP October 12, 2021 12:27 PM [...] transplant. No Dr ReddyDisp: Rfl: TACROLIMUS/FK-506 BL [[id number]] Order #: [id number] FUTURE Prescriptions as of 10/12/2021 - tacrolimus [...] mg by mouth three times daily. - eqslmm-pynnizlk-iztlbia (CREON) 24,000-76,000 -120,000 unit cpDR Take 3 [...] [J18.9] 11/29 (more content not included)... Normal [facility] Tacrolimus / TT348an 10-10- 021 Tacrolimus / FK506 10.1 ng/mL Normal 5.0-20.0 [facility] Comment on above: Result Comment: Thes e [...] Test performed by chemiluminescent immunoassay using [employer]. Performed By: #### F K506 ####[facility] [id number] [place], [place] [id number] Eduardo 09-13-2021 CNPBlake Telephone (CARD CHF ISACC) -- SYLVIA HANNA ([id number]) 1945 F Date Time Provider Department 09/13/21 ARELIS NEWSOME [facility]ARD [facility] ISACC During your visit today, we recorded the following information about you: Lniden Faustina 09/13/2021 2:52 PM Signed S/w pt, due to transportation and financial constraints she is unable to come to [place] for appointments. Patient is working with her case maker to establish care with a local metal storage worker (had previously been followed by one in [place]).Dr Rice has agreed and plan going forward will be to do a phone visit with pt on 10/03 and she will follow up in the interim with her local Hardware Test Engineer. Sending pt mailers and lab order, she will get those done as soon as she can. Linden Faustina Administrative Lining Marker Allergies As of Date: 09/13/2021 Noted Allergy [...] mg by mouth three times daily. - vtvzdh-blytpdbl-fkwvhcr (CREON) 24,000-76,000 -120,000 unit cpDR Take 3 [...] by LINDEN WEEMS on 09/13/21 [facility] OBSOLETEon 09-12-2021 OBSOLETE Refill (CARD CHF ISACC ) -- SYLVIA HANNA ([id number]) 1945 F Date Time Provider Department 09/12/21 [...] mg by mouth three times daily. - edakez-dvjbzkzn-lawwzvx (CREON) 24,000-76,000 -120,000 unit cpDR Take 3 [...] Status:Closed by SANDRITA GUERRERO on 09/12/21 Normal [facility] Vital Signs Date Time Vital Sign Value Performing Clinician Dami charles 04-08-2023 06:45-0400 Diastolic blood pressure 76 mm[Hg] Richard Roby [facility] [place] [facility] 04-08-2023 06:45-0400 Heart rate 59 /min Richard Roby [facility] [place] [facility] 04-08-2023 06:45-0400 Hourly Rounding Richard Roby [facility] [place] [facility] 04-08-2023 06:45-0400 Mean blood pressure 106 mm[Hg] Richard Roby [facility] [place] [facility] 04-08-2023 06:45-0400 Respiratory rate 18 /min Richard Roby [facility] [place] [facility] 04-08-2023 06:45-0400 SaO2% (BldA) [Mass fraction] 96 % Richard Roby [facility] [place] [facility] 04-08-2023 06:45-0400 Systolic blood pressure 167 mm[Hg] Richard Roby [facility] [place] [facility] 04-08-2023 05:30-0400 Diastolic blood pressure 88 mm[Hg] Richard Roby [facility] [place] [facility] 04-08-2023 05:30-0400 Heart rate 52 /min Richard Roby [facility] [place] [facility] 04-08-2023 05:30-0400 Hourly Rounding Richard Roby [facility] [place] [facility] 04-08-2023 05:30-0400 Mean blood pressure 114 mm[Hg] Richard Roby [facility] [place] [facility] 04-08-2023 05:30-0400 Respiratory rate 18 /min Richard Roby [facility] [place] [facility] 04-08-2023 05:30-0400 SaO2% (BldA) [Mass fraction] 95 % [facility] [place] [facility] [facility] 04-08-2023 05:30-0400 Systolic blood pressure 167 mm[Hg] Richard Roby [facility] 04-08-2023 04:39-0400 Diastolic blood pressure 90 mm[Hg] Richard Roby [facility] 04-08-2023 04:39-0400 Heart rate 56 /min Richard Roby [facility] 04-08-2023 04:39-0400 Hourly Rounding Richard Roby [facility] 04-08-2023 04:39-0400 Mean blood pressure 112 mm[Hg] Richard Roby [facility] 04-08-2023 04:39-0400 Respiratory rate 17 /min Richard Roby [facility] 04-08-2023 04:39-0400 SaO2% (BldA) [Mass fraction] 94 % Richard Roby [facility] 04-08-2023 04:39-0400 Systolic blood pressure 155 mm[Hg] Richard Roby [facility] 04-07-2023 21:48-0400 Respiratory rate 18 /min Richard Roby [facility] 04-07-2023 21:19-0400 Body temperature 98.06 [degF] Richard Roby [facility] 04-07-2023 21:19-0400 Heart rate 65 /min Richard Ca [facility] 04-07-2023 21:19-0400 Respiratory rate 19 /min Richard Ca [facility] Encounters Encounter Date Encounter Type Care Provider Facility Start: 12-28-2024 End: 12-28-2024 Refill Loida Mathias APRN.CNP Work Phone: [facility] Comment on above: Refill Request Start: 10-09-2024 End: 10-09-2024 ambulatory González Shanks Facility:[facility] Start: 10-09-2024 End: 10-09-2024 Patient encounter procedure González Shanks [facility] Start: 09-14-2024 End: 09-14-[address] [facility] Start: 07-01-2024 End: 07-01-[address] [facility] Start: 06-18-2024 End: 06-18-2024 ambulatory NON STAFF [facility] Work Phone: Start: 06-18-2024 End: 06-18-[address] [facility] Start: 02-03-2024 End: 02-03-[address] [facility] Start: 11-12-2023 End: 11-12-[address] [facility] Start: 04-07-2023 End: 04-08-2023 Emergency department patient visit Richard GoodmanLaura Ca [facility] Start: 03-05-2023 End: 03-05-2023 ambulatory [...] ROGERS Facility:[facility] Start: 09-08-2022 Refill Sandrita Guerrero APRN.TITLE INSURANCE AGENT Work Phone: Cardiology Comment on above: Refill Request Start: 08-04-2022 End: 08-04-2022 ambulatory NANCY REYES . Facility:[facility] Start: 08-02-2022 Telephone encounter Loida Mathias APRN.TITLE INSURANCE AGENT Work Phone: Cardiology Comment on above: Heart Transplant Fol low Up (Labs/) Start: 08-02-2022 End: 08-03-[address] TAO DAVIS . Facility:[facility] Start: 07-27-[address] TAO DAVIS . Facili ty:[facility] Start: 07-16-2022 End: 07-16-2022 Patient encounter procedure Eddie VERAS [facility] Start: 07-05-2022 Telephone encounter Sho Crowley APRN.TITLE INSURANCE AGENT Work Phone: Cardiology Comment on above: Heart Transplant Fol low Up; Lab Meeting Start: 07-03-2022 Telephone encounter Soy Mccann RN [facility]di[facility] Comment on above: Heart Transplant Fol low Up (labs) Start: 07-03-2022 End: 07-04-[address] TAO DAVIS . Facility:[facility] Start: 05-28-2022 End: 05-29-[address] TAO DAVIS . Facility:[facility] Start: 05-08-2022 Telephone encounter Loida Mathias APRN.TITLE INSURANCE AGENT Work Phone: Cardiology Comment on above: Heart Transplant Fol low Up (labs) Start: 05-07-2022 End: 05-08-[address] TAO DAVIS . Facility:[facility] Start: 04-24-2022 Telephone encounter Loida Mathias APRN.TITLE INSURANCE AGENT Work Phone: Cardiology Comment on above: Heart Transplant Fol low Up Start: 04-24-2022 End: 04-25-[address] TAO DAVIS . Facility:[facility] Start: 04-20-[address] TAO DAVIS . Facili ty:[facility] Start: 04-11-2022 ambulatory Loida fontaine APRN.TITLE INSURANCE AGENT Work Phone: [facility] Start: 04-11-2022 Follow-up encounter Loida Mathias APRN.TITLE INSURANCE AGENT Work Phone: Cardiology Comment on above: Heart Transplant Fol low Up (Labs) Start: 04-09-2022 End: 04-10-[address] TAO DAVIS . Facility:[facility] Start: 04-06-2022 Orders Only Loida kellyno DUSTY.TITLE INSURANCE AGENT Work Phone: Cardiology Comment on above: Heart replaced by tr ansplant (HCC) (Primary Dx) Start: 04-04-2022 Refill Loida Kian fontaine DUSTY.TITLE INSURANCE AGENT Work Phone: Cardiology Comment on above: Rx Refills Start: 10-03-2021 End: 10-03-2021 ambulatory NICOLETTE RICE [facility] Procedures Date Procedure Procedure Detail Performing Clinician Start: 08-10-2013 H/O: heart recipient Heart transplan arianna Loida Bihsopo DUSTY.TITLE INSURANCE AGENT Work Phone: Start: 03-19-2006 End: 08-12-2013 H/O: heart recipient Heart replaced by transplant Loida Mathias NURSE PRIVATE DUTY.TITLE INSURANCE AGENT Work Phone: H/O: heart recipient Heart transplanted ( [facility]) Loida Mathias NURSE PRIVATE DUTY.TITLE INSURANCE AGENT Work Phone: H/O: heart recipient Heart repla nitish by transplant ([facility]) Loida Mathias NURSE PRIVATE DUTY.TITLE INSURANCE AGENT Work Phone: H/O: heart recipient Heart transplanted ( HCC) Loida Mathias NURSE PRIVATE DUTY.TITLE INSURANCE AGENT Work Phone: H/O: heart recipient Heart transplanted ( [facility]) Loida Mathias NURSE PRIVATE DUTY.TITLE INSURANCE AGENT Work Phone: H/O: heart recipient Heart transplanted ( HCC) Sho Crowley NURSE PRIVATE DUTY.TITLE INSURANCE AGENT Work Phone: H/O: heart recipient Hx of heart transplant( Confirmed ) Morgan RITO Plan of Treatment Date Care Activity Detail Author Start: 02-09-2031 Urine microalbumin profile DTaP,Tdap,Td Vaccine (2 - Tdap) [facility] Start: 12-02-2024 Advance Directive Discussion Advance Directive Discussion [facility] Start: 08-02-2024 Covid-19 Vaccine ( season) Covid-19 Vaccine ( season) [facility] Start: 08-02-2024 Influenza vaccination Influenza Vacc ine (#1) [facility] Start: 09-02-2022 Diabetes Screening Diabetes Screenin g [facility] Start: 08-02-2022 Influenza vaccination INFLUENZA (#1) [facility] Start: 07-19-2022 End: 09-18-2022 Tacrolimus [Mass/volume] in Blood TACROLIMUS/FK-506 BL Lab Routine Heart transplanted ([facility]) Expected: 07/19/2022 (Approximate), Expires: 09/18/2022 [facility] Work Phone: Comment on above: Expected: 07/19/2022 (Approximate), Expires: 09/18/2022 Start: 05-21-2022 End: 07-21-2022 TACROLIMUS/FK-506 BL TACROLIMUS/FK-506 BL Lab Routine Heart transplanted (HCC) Expected: 05/21/2022, Expires: 07/21/2022 [facility] Work Phone: Comment on above: Expected: 05/21/2022 , Expires: 07/21/2022 Start: 04-23-2022 End: 06-23-2022 TACROLIMUS/FK-506 BL TACROLIMUS/FK-506 BL Lab Routine Heart transplanted ([facility]) Expected: 04/23/2022, Expires: 06/23/2022 [facility] Work Phone: Comment on above: Expected: 04/23/2022 , Expires: 06/23/2022 Start: 04-09-2022 End: 06-09-2022 CBC W Auto Differential panel - Blood CBC + DIFF Lab Routine Heart replaced by transplant ([facility]) Expected: 04/09/2022, Expires: 06/09/2022 [facility] Work Phone: Comment on above: Expected: 04/09/2022 , Expires: 06/09/2022 Start: 04-09-2022 End: 06-09-2022 Comprehensive metabolic 2000 panel - Serum or Plasma COMP METABOLIC PANEL Lab Routine Heart replaced by transplant ([facility]) Expected: 04/09/2022, Expires: 06/09/2022 [facility] Work Phone: Comment on above: Expected: 04/09/2022 , Expires: 06/09/2022 Start: 04-09-2022 End: 04-06-2023 HEART/LUNG REC POST TX DSA HEART/LUNG REC POST TX DSA ALLOGEN Routine Heart replaced by transplant ([facility]) Expected: 04/09/2022, Expires: 04/06/2023 [facility] Work Phone: Comment on above: Expected: 04/09/2022 , Expires: 04/06/2023 Start: 04-09-2022 End: 06-09-2022 LIPID PANEL BASIC LIPID PANEL BASIC Lab Routine Heart replaced by transplant ([facility]) Expected: 04/09/2022, Expires: 06/09/2022 [facility] Work Phone: Comment on above: Expected: 04/09/2022 , Expires: 06/09/2022 Start: 04-09-2022 End: 06-09-2022 Magnesium [Mass/volume] in Serum or Plasma MAGNESIUM BLD Lab Routine Heart replaced by transplant ([facility]) Expected: 04/09/2022, Expires: 06/09/2022 [facility] Work Phone: Comment on above: Expected: 04/09/2022 , Expires: 06/09/2022 Start: 04-09-2022 End: 06-09-2022 TACROLIMUS/FK-506 BL TACROLIMUS/FK-506 BL Lab Routine Heart replaced by transplant ([facility]) Expected: 04/09/2022, Expires: 06/09/2022 [facility] Work Phone: Comment on above: Expected: 04/09/2022 , Expires: 06/09/2022 Start: 04-09-2022 End: 06-09-2022 URINALYSIS, DIPSTICK ONLY URINALYSIS, DIPSTICK ONLY Lab Routine Heart replaced by transplant ([facility]) Expected: 04/09/2022, Expires: 06/09/2022 [facility] Work Phone: Comment on above: Expected: 04/09/2022 , Expires: 06/09/2022 Start: 12-02-2021 ADVANCE DIRECTIVE DISCUSSION ADVANCE DIRECTIVE DISCUSSION [facility] Start: 09-26-2021 COVID-19 VACCINE (3 - Pfizer risk 4-dose series) COVID-19 VACCINE (3 - Pfizer risk 4-dose series) [facility] Start: 09-26-2021 COVID-19 VACCINE (3 - Pfizer risk series) COVID-19 VACCINE (3 - Pfizer risk series) [facility] Start: 03-04-2020 Hepatitis B surface antibody level LDL CHOLESTEROL [facility] Start: 2019 RSV Vaccine (1 - 1-d ose 75+ series) RSV Vaccine (1 - 1-dose 75+ series) [facility] Start: 06-14-2015 Hemoglobin A1c/Hemoglobin.total in Blood HBA1C [facility] Start: 11-01-2013 PNEUMOCOCCAL: 65+ (3 - PCV) PNEUMOCOCCAL: 65+ (3 - PCV) [facility] Start: 01-26-2010 ADULT PREVNAR [facility] Start: 1994 SHINGRIX VACCINE (1 of 2) SHINGRIX VACCINE (1 of 2) [facility] Start: 1963 SHINGRIX VACCINE (1 of 2) SHINGRIX VACCINE (1 of 2) [facility] Start: 1963 Urine microalbumin profile DTAP,TDAP,TD (1 - Tdap) [facility] Start: 1962 ANNUAL PCP TEAM OUTREACH TEAM MEMBER ESTRELLA DISEASE VISIT ANNUAL PCP TEAM CHRONIC DISEASE VISIT [facility] Start: 1962 Anxiety Screening Anxiety Screening [facility] Start: 1962 BP CONTROLLED (<130/80) BP CONTROLLE D (<130/80) [facility] Start: 1962 Depression Screening Depression Scre ening [facility] Start: 1954 3 comp foot exam completed DIABETIC FOOT EXAM [facility] Start: 1954 Hepatitis B screening URINE ALBUMIN:CREATININE RATIO [facility] Start: 1954 Hepatitis C antibody , confirmatory test DILATED RETINAL EXAM [facility] Start: 1950 PNEUMOCOCCAL: 65+ (1 - PCV) PNEUMOCOCCAL: 65+ (1 - PCV) [facility] Immunizations Immunization Date Immunization Notes Care Provider Valente araujo 09-28-2023 influenza virus vaccine, unspecified formulation González Shanks [facility] 05-20-2023 pneumococcal 20-matthew nt conjugate vaccine [employer]edgar [employer] [facility] 07-14-2022 influenza virus vaccine, unspecified formulation Racquel[employer]on #usemelonedgar [employer]stepan [facility] 06-05-2022 SARS-CoV-2 mRNA (rduqetfzdsk-swnl-utvjf se) vaccine [employer] [facility] 08-29-2021 SARS-CoV-2 (COVID-19 ) mRNA BNT-162b2 vax [employer] [facility] 08-02-2021 SARS-CoV-2 (COVID-19 ) mRNA BNT-162b2 vax Morgan SALAM [facility] 07-05-2021 influenza virus vaccine, unspecified formulation Morgan SALAM [facility] 09-29-2020 influenza, unspecifi ed formulation Morgan SALAM [facility] 07-24-2020 influenza virus vaccine, unspecified formulation Morgan SALAM [facility] 09-02-2017 influenza virus vaccine, unspecified formulation Morgan SALAM [facility] 08-07-2017 pneumococcal conjuga te vaccine, 13 valent Morgan SALAM [facility] 08-14-2016 influenza virus vaccine, unspecified formulation Morgan SALAM [facility] 09-29-2015 pneumococcal conjuga te vaccine, 13 valent Morgan SALAM [facility] 08-04-2015 influenza virus vaccine, unspecified formulation Morgan SALAM [facility] 09-15-2014 influenza virus vaccine, whole virus Loida Iammarino NURSE PRIVATE DUTY.TITLE INSURANCE AGENT Work Phone: [facility] 09-15-2014 influenza, whole Morgan SALAM [facility] 11-01-2012 pneumococcal polysaccharide vaccine, 23 valent Loida Iammarino NURSE PRIVATE DUTY.TITLE INSURANCE AGENT Work Phone: [facility] 12-28-2009 novel [id number], all formulations Loida Iammarino NURSE PRIVATE DUTY.TITLE INSURANCE AGENT Work Phone: [facility] Work Phone: 08-19-2009 influenza virus vaccine, unspecified formulation Loida Iammarino NURSE PRIVATE DUTY.TITLE INSURANCE AGENT Work Phone: [facility] 09-01-2006 influenza virus vaccine, unspecified formulation Loida Iammarino NURSE PRIVATE DUTY.TITLE INSURANCE AGENT Work Phone: [facility] Work Phone: 09-01-2006 pneumococcal polysaccharide vaccine, 23 valent Loida Mathias NURSE PRIVATE DUTY.TITLE INSURANCE AGENT Work Phone: [facility] Work Phone: NEGATED: Highlighted row has not occurred!07-12-2022 influenza virus vaccine, unspecified formulation Eddie VERAS [facility] Payers Date Payer Category Payer Self-pay 2022 Medicare UHC MEDICARE UHC DUAL COMPLETE HMO SNP [id number] 2022-Present [phone] [address] [place] [address] Medicare [id number] 2022 Medicare UHC MEDICARE UHC DUAL COMPLETE HMO SNP [id number] 2022-Present [phone] [address] [place] [address] Medicare [id number] 2020 Unknown [id number] 1959 Medicaid [id number] 1959 Medicare [id number] 1959 Self-pay [id number] 1959 Unknown [id number] 1944 Unknown [id number] 1944 Unknown [id number] [id number]3 1944 Unknown [id number] 2.16.840.1.427593.3.579.2.593 1944 Unknown [id number] 2.16.840.1.499466.3.579.2.593 1944 Unknown [id number] 2.16.840.1.090746.3.579.2.593 1944 Unknown [id number] 2.16.840.1.620107.3.579.2.593 1944 Unknown [id number] 2.16.840.1.589245.3.579.2.593 1944 Unknown [id number] 2.16.840.1.104315.3.579.2.593 1944 Unknown [id number] 2.16.840.1.458577.3.579.2.593 1944 Unknown [id number] 2.16.840.1.042893.3.579.2.593 1944 Unknown [id number] 2.16.840.1.101212.3.579.2.593 1944 Unknown [id number] 2.16.840.1.733177.3.579.2.593 1944 Unknown [id number] 2.16.840.1.512577.3.579.2.593 1944 Unknown [id number] 2.16.840.1.542769.3.579.2.593 1944 Unknown [id number] 2.16.840.1.513083.3.579.2.593 1944 Unknown [id number] 2.16.840.1.943179.3.579.2.593 1944 Unknown [id number] 2.16.840.1.155270.3.579.2.593 1944 Unknown [id number] 2.16.840.1.892579.3.579.2.593 1944 Unknown [id number] 2.16.840.1.675534.3.579.2.727 Unknown [id number] [id number] Social History Date Type Detail Facility Start: 05-13-2019 Tobacco smoking stat us NHIS Ex-smoker [facility] Work Phone: History of tobacco use Cigarette Smoker C [facility] Work Phone: Start: 09-07-2019 Alcohol intake Current non-dr mortician helper of alcohol (finding) [facility] Start: 1945 Sex Assigned At Not on file C [facility] Start: 07-12-2022 Never smoked t obacco (finding) [facility] Never [facility] Start: 09-07-2019 End: 11-06-2020 Female [facility] History of tobacco use Current smoker [facility] Start: 05-13-2019 End: 11-06-2020 Cigarettes smoked current (pack per day) - Reported 0.3 [facility] Start: 05-13-2019 Tobacco use and exposure Smokeless tobacco non-user [facility] Start: 1945 Sex Assigned At Female F [facility] Functional Status Date Assessment Result Facility 04-07-2023 Functional Status N/A [facility] Clinical Notes 11-14-2017 to 09-14-2024 Note Date & Type Note Facility 09-14-2024 Note [facility] - [facility] Subjective Sylvia Hanna is a [...] Alcohol use: Not Currently Drug use: Never [facility] Visit of 10/30/2021: Sylvia is seen [...] 2007. She is followed by the [facility] cardiology service. She has had [...] on 11/19/16. Similar (more content not included)... [facility] 07-01-2024 Note [facility] - [facility] Subjective Sylvia Hanna is a 78 y.o. year old female patient being seen for follow up [facility] for syncope. Says she's been [...] Alcohol use: Not Currently Drug use: Never [facility] Visit of 10/30/2021: Sylvia is seen [...] 2007. She is followed by the [facility] cardiology service. She has had [...] There is no (more content not included)... [facility] 02-03-2024 Note [facility] - [facility] Subjective Sylvia Hanna is a 78 y.o. year old female patient being seen for follow up [facility]. She was seen as inpatient [...] 2007. She is followed by the [facility] cardiology service. She has had [...] the prior echocardiographi (more content not included)... [facility] 11-12-2023 Note [facility] - [facility] Subjective Sylvia Hanna is a [...] 2007. She is followed by the [facility] cardiology service. She has had [...] Stress Testing (1 (more content not included)... [facility] 10-28-2023 Note [facility] 04-08-2023 Hospital Discharge instructions Patient [...] ?Adrenal gland problems. ?Metabolic conditions, such as Wellington's disease or syndrome of inappropriate antidiuresis (SIAD). [...] improvement. Follow these instructions at home: Take wiuu-tcc-nrztxoj and prescription medicines only as told by [...] provider. Document Revised: 05/29/2022 Document Reviewed: 05/29/2022 [facility] Patient Education 2022 [employer]. 04/08/2023 08:56:02 Nonspecific Chest Pain, Adult Nonspecific [...] Follow these instructions at home: Medicines Take uzcy-rbr-ptmoelb and prescription medicines only as told by [...] provider. Document Revised: 02/01/2022 Document Reviewed: 02/01/2022 [facility] Patient Education 2022 [employer]. Follow Up Care 04/07/2023 21:19:10 With:SCOT ROGERS Address: [facility] [facility] [place] [address]- [phone] Business (1) When:Within 3 Day(s) [facility] 04-07-2023 Evaluation + Plan note [...] Hr. XR Chest Single View [facility]09-01-2022 Miscellaneous Notes* Telephone Encounter - Linden Weems - 08/02/2022 1:41 PM EDT Patient had labs drawn 08/02/22, uploaded to scanned docs. [facility] Miscellaneous Notes* Telephone Encounter - Sho [...] another team. Sho Crowley APRN, CNP Pager: [phone] July 05, 2022 10:42 AM Post Heart Transplant Nurse Practitioner documented in this [facility]Prom[facility] Miscellaneous Notes* Telephone Encounter - Linden Weems - 07/03/2022 12:59 PM EDT Patient had labs drawn 07/03/22, uploaded to scanned docs. documented in [facility]06-07-2022 Miscellaneous Notes* Addendum Note - Loida [...] uploaded to scanned docs. Linden Weems Administrative Lining Marker documented in this encounterProm[facility]05-24-2022 Miscellaneous Notes* Telephone Encounter - Linden Weems - 04/24/2022 1:31 PM EDT Patient left message that she had labs drawn today. Linden Ortizsherita Administrative Lining Marker Post Heart Transplant J3-4 documented in this encounterProm[facility]05-11-2022 NoteHNO ID: [id number] Author: Loida Mathias APRN.CNP Service: ? Author [...] reports she can no longer travel to [place]. She does not have a ride, she has no family or friends to lean on. She has made an appt with a local Hardware Test Engineer. She will ask him if there are any transplant doctors or centers near her and potentially need to transfer her care. She will keep us updated. Loida Mathias APRN.CNP April 12, 2022 2:25 [facility]05-11-2022 History of Present illness Narrative* Loida Mathias [...] reports she can no longer travel to [place]. Shedoes not have a ride, she has no family or friends to lean on. She has made an appt with a local Hardware Test Engineer. She will ask him if there are any transplant doctors or centers near her and potentiallyneed to transfer her care. She will keep us updated. Loida Mathias APRN.CNP April 12, 2022 2:25 PM documented in this encounterProm[facility]11-08-2021 NoteHNO ID: [id number] Author: Loida Mathias APRN.CNP Service: ? Author [...] Loida Mathias APRN.CNP October 09, 2021 4:10 [facility]11-02-2021 NoteHNO ID: [id number] Author: Nicolette Rice MD Service: ? Author Type: Physician Type: Progress Notes Filed: 10/03/2021 4:12 PM Note Text: Heart, Vascular AND Thoracic [place] Department of Cardiovascular Medicine TELEPHONE VISIT PROGRESS [...] in ~6 months. Will see a local metal storage worker at the end of the month. Data Reviewed: No new labs Assessment: She is doing well clinically and her BP is controlled. ? Plan: 1. She was instructed to continue the current medical program. 2. RTC per post-transplant protocol. Total Time Spent: 21-[address] [facility]12-14-2017 History of Past illness Narrative* Problem [...] of this encounter (statuses as of 04/05/2022) [facility] History of Past illness Narrative* Problem [...] of this encounter (statuses as of 04/06/2022) [facility] History of Past illness Narrative* Problem [...] of this encounter (statuses as of 04/12/2022) [facility] History of Past illness Narrative* Problem [...] of this encounter (statuses as of 04/24/2022) [facility] History of Past illness Narrative* Problem [...] of this encounter (statuses as of 05/08/2022) [facility] History of Past illness Narrative* Problem [...] of this encounter (statuses as of 07/03/2022) [facility] History of Past illness Narrative* Problem [...] of this encounter (statuses as of 07/05/2022) [facility] History of Past illness Narrative* Problem [...] of this encounter (statuses as of 08/02/2022) [facility] History of Past illness Narrative* Problem [...] of this encounter (statuses as of 09/11/2022) [facility] note Future Appointments Appointment Date:08/01/2022 01:50:00 PM Scheduled Provider: Location:[facility] Appointment Type:Surgery FT Diagnostic Tests Pending * CMV Antibody IgM 07/16/22 Future Scheduled Tests Laboratory* Fecal WBC Lactoferrin 07/12/22 * Giardia lamblia, Direct Detection EIA 07/12/22 * O & P Exam, Routine 07/12/22 * Clostridium difficile by PCR 07/12/22 * Enteric Panel by PCR 07/12/22 [facility] Diagnosis Heart transplanted (HCC) Heart replaced by transplant documented in this encounter [facility] note* Diagnosis Heart replaced by transplant (HCC)- Primary Heart replaced by transplant documented in this encounter [facility] note* Diagnosis Heart replaced by transplant (HCC)- Primary Heart replaced by transplant Heart transplanted (HCC) Heart replaced by transplant documented in this encounter [facility] note* Diagnosis Heart transplanted (HCC) Heart replaced by transplant documented in this encounter [facility] note* Diagnosis Heart transplanted (HCC) Heart replaced by transplant documented in this encounter [facility] noteNo assessment information availableKettering Health [facility] Work Phone: Hospital course Narrative No data available for this section [facility] No data available for this section [facility] No data available for this section [facility] Advance Directives Documents on File Type Date Recorded Patient Processing Spec Expl anation Advance Directive(s) 11/14/2017 5:44 AM Advance Directive(s) 01/02/2012 12:00 AM Advance Directive(s) 01/17/2007 12:00 AM Documents on File Type Date Recorded Patient Processing Spec Expl anation Advance Directive(s) 01/02/2012 Advance Directive(s) [...] or prosecute any alcohol or drug abuse patient.[facility] the event this information is protected by the Federal Confidentiality of Alcohol and Drug Abuse Patient Records regulations: The Federal rules restrict any use of the information to criminally investigate or prosecute any alcohol or drug abuse patient.[facility] the event this information is protected by the Federal Confidentiality of Alcohol and Drug Abuse Patient Records regulations: The Federal rules restrict any use of the information to criminally investigate or prosecute any alcohol or drug abuse patient.[facility] the event this information is protected by the Federal Confidentiality of Alcohol and Drug Abuse Patient Records regulations: The Federal rules restrict any use of the information to criminally investigate or prosecute any alcohol or drug abuse patient.[facility] the event this information is protected by the Federal Confidentiality of Alcohol and Drug Abuse Patient Records regulations: The Federal rules restrict any use of the information to criminally investigate or prosecute any alcohol or drug abuse patient.[facility] Hospital[facility] the event this information is protected by the Federal Confidentiality of Alcohol and Drug Abuse Patient Records regulations: The Federal rules restrict any use of the information to criminally investigate or prosecute any alcohol or drug abuse patient.[facility] the event this information is protected by the Federal Confidentiality of Alcohol and Drug Abuse Patient Records regulations: The Federal rules restrict any use of the information to criminally investigate or prosecute any alcohol or drug abuse patient.[facility] Hospital[facility] the event this information is protected by the Federal Confidentiality of Alcohol and Drug Abuse Patient Records regulations: The Federal rules restrict any use of the information to criminally investigate or prosecute any alcohol or drug abuse patient.[facility] Hospital[facility] the event this information is protected by the Federal Confidentiality of Alcohol and Drug Abuse Patient Records regulations: The Federal rules restrict any use of the information to criminally investigate or prosecute any alcohol or drug abuse patient.[facility] HospitalIn the event this information is protected by the Federal Confidentiality of Alcohol and Drug Abuse Patient Records regulations: The Federal rules restrict any use of the information to criminally investigate or prosecute any alcohol or drug abuse patient.[facility] Reason for Visit (unrecogniz ed section and content) Reason Comments Rx Refills Reason Comments Heart Transplant Follow Up Labs Reason Comments Heart Transplant Follow Up Reason Comments Heart Transplant Follow Up labs Reason Comments Heart Transplant Follow Up Lab Meeting Reason Comments Refill Request Care Teams (unrecognized sec tion and content) Art Objects Salesperson Relationship Specialty Start Date End Date Tao Davis MD [address] [id number] PCP - General Family Practice 05/13/19 Art [employer] Salesperson Relationship Specialty Start Date End Date Tao Davis MD [address] [place] [address] PCP - General Family Practice 05/13/19 Art [employer] Salesperson Relationship Specialty Start Date End Date Tao Davis MD [address] [place] [address] PCP - General Family Practice 05/13/19 Art [employer] Salesperson Relationship Specialty Start Date End Date Tao Davis MD [address] [place] [address] PCP - General Family Practice 05/13/19 Art Objects Salesperson Relationship Specialty Start Date End Date Tao Davis MD [address] [place] [address] PCP - General Family Practice 05/13/19 Art Objects Salesperson Relationship Specialty Start Date End Date Tao Davis MD [address] [place] [address] PCP - General Family Medicine 05/13/19 Team Status: Inactive Member Role Status Dates NON STAFF Attending Provider Active Start: 2023 End: June 18, 2024 Art [employer] Salesperson Relationship Specialty Start Date End Date Tao Davis MD PCP - General Family Medicine 05/13/19 INFORMATION SOURCE (unrecogn ized section and content) DATE CREATED AUTHOR 09/01/2022 [facility] DATE CREATED AUTHOR AUTHOR'S ORGANIZ ATION 03/09/2023 [facility] DATE CREATED AUTHOR AUTHOR'S ORGANIZ ATION 07/12/2024 [facility] DATE CREATED AUTHOR AUTHOR'S ORGANIZ ATION 10/03/2024 [facility] DATE CREATED AUTHOR AUTHOR'S ORGANIZ ATION 10/11/2024 [facility] Goals (unrecognized section and content) Goals may [...] BE BASED ON THE PRIMARY CLINICAL RECORDS. [facility]. provides no warranty or guarantee of the accuracy or completeness of information in this document.
[2025-01-05 01:36] LABS: Bilirubin Urine NEGATIVE (NEGATIVE); Blood Urine SMALL (NEGATIVE); Clarity Urine CLEAR (CLEAR); Color Urine LT. YELLOW (YELLOW); Glucose Urine UA NEGATIVE (NEGATIVE); Ketones Urine NEGATIVE (NEGATIVE); Leukocyte Esterase Urine LARGE (NEGATIVE); Nitrite Urine NEGATIVE (NEGATIVE); Protein Urine 30 mg/dL (NEG/TRACE); Specific Gravity Urine 1.015 (1.005-1.025); Urobilinogen Urine 0.2 EU/dL (0.2-1.0); pH Urine 5.5 (5.0-9.0)
[2025-01-05 01:42] LABS: Bacteria Urine SMALL #/HPF (NONE SEEN); WBC Urine 20-50 #/HPF (NONE SEEN)
[2025-01-05 01:43] LABS: Cast Seen? NONE SEEN #/LPF (NONE SEEN); Crystals Seen? None Seen #/HPF (None Seen); Mucus Urine NONE SEEN (NONE SEEN); Squamous Epithelial Cell Urine FEW #/LPF (NONE/RARE); Urine Culture Indicated YES
[2025-01-05 05:12] LABS: Basophils Percent Auto 0.2 % (0.2-2.0); Eosinophils Absolute Auto 0.1 10^3/uL (0.0-0.7); Eosinophils Percent Auto 0.4 % (0.9-7.0); Hematocrit 30.5 % (36.0-48.0); Hemoglobin 9.9 g/dL (12.0-16.0); Immature Granulocytes Abs Auto 0.03 10^3/uL (0.00-0.03); Immature Granulocytes Pct Auto 0.2 % (0.0-0.5); Lymphocytes Absolute Auto 0.9 10^3/uL (1.2-3.8); Lymphocytes Percent Auto 7.3 % (20.5-60.0); Mean Corpuscular HGB Conc 32.5 g/dL (29.9-35.2); Mean Corpuscular Hemoglobin 28.6 pg (26.7-34.0); Mean Corpuscular Volume 88.2 fL (81.0-99.0); Mean Platelet Volume 10.6 fL (9.5-13.5); Monocytes Absolute Auto 1.2 10^3/uL (0.3-0.8); Monocytes Percent Auto 9.1 % (1.7-12.0); Neutrophils Absolute Auto 10.5 10^3/uL (1.4-6.5); Neutrophils Percent Auto 82.8 % (43.0-75.0); Platelet Count 190 10^3/uL (150-450); Red Blood Count 3.46 10^6/uL (4.20-5.40); Red Cell Distribution Width 14.5 % (11.0-15.0); White Blood Count 12.7 10^3/uL (4.0-11.0)
[2025-01-05 05:30] LABS: Alanine Aminotransferase 38 U/L (14-59); Albumin Level 2.7 g/dL (3.4-5.0); Alkaline Phosphatase 254 U/L (46-116); Anion Gap 23.3; Aspartate Amino Transferase 30 U/L (15-37); BUN Creatinine Ratio 20.9; Bilirubin Total 0.3 mg/dL (0.2-1.0); Calcium 6.6 mg/dL (8.5-10.1); Carbon Dioxide 9.8 mmol/L (21.0-32.0); Chloride 110 mmol/L (98-107); Estimated GFR (African America 9 (>=60 mL/min/1.73m^2); Estimated GFR (Non-African Ame 8 (>=60 mL/min/1.73m^2); Globulin 2.8 g/dL; Glucose 117 mg/dL (74-106); Magnesium 1.2 mg/dL (1.8-2.4); Potassium 3.1 mmol/L (3.5-5.1); Sodium 140 mmol/L (136-145); Total Protein 5.5 g/dL (6.4-8.2)
[2025-01-05] MEDS: LEVOTHYROXINE SODIUM 112 MCG TABLET PO (05:49)
--- NOTE | 2025-01-05 07:55 | P.HP_ITS ---
HPI H&P: HPI History of Present Illness Chief complaint: DREW,GASTROENTERITIS Narrative: Patient presented to the emergency room cough productive of sputum, no UTI symptoms, significant diarrhea over the last week, with emesis, diarrhea is slowing down, emesis is improved, in ER found to have acute renal failure, left lower lobe pneumonia and acute UTI When I saw patient up in the medical surgical floor, resting comfortably in bed, some cough throughout the evaluation but no significant dyspnea Opioid HPI Opioid Management Most Recent Pain and Opioid Data: Last Pain Scale 5 06/18/24 01:27 06/18/24 Last Pain Intensity 2 12/31/23 13:45 12/31/23 Last Pain Assessment 01/05/25 06:00 Last ORT Total Score 0 01/05/25 01:30 01/05/25 Last ORT Risk Category Low Risk 01/05/25 01:30 01/05/25 Review of Systems ROS Status of ROS 10 or more systems reviewed and unremark able except as noted in history and below [facility] Medical History (Updated 01/04/25 @ 23:39 by Elisa Lopez MD) Head injury ?S09.90XA - Unspecified injury of head, initial encounter (ICD-10) Syncope ?R55 - Syncope and collapse (ICD-10) Depression ?F32.A - Depression, unspecified (ICD-10) Syncope ?R55 - Syncope and collapse (ICD-10) Acute kidney injury ?N17.9 - Acute kidney failure, unspecified (ICD-10) Gastroenteritis ?K52.9 - Noninfective gastroenteritis and colitis, unspecified (ICD-10) Heart transplant recipient ?Z94.1 - Heart transplant status (ICD-10) Heart transplant recipient ?Z94.1 - Heart transplant status (ICD-10) Surgical History (Updated 06/18/24 @ 00:55 by Toña Márquez RN) History of heart transplant ?Z94.1 - Heart transplant status (ICD-10) History of cholecystectomy ?Z90.49 - Acquired absence of other specified parts of digestive tract (ICD- 10) History of ureteroscopy ?Z98.890 - Other specified postprocedural states (ICD-10) Social History (Updated 06/18/24 @ 00:33 by Toña Márquez RN) Within the past year, how often did you have a drink containing alcohol: never Score interpretation: A score less than 3 is consistent with normal alcohol consumption. Smoking status: Never smoker Non-prescribed substance use: denies use Highest level of school completed/degree received: high school graduate Are you now , , , , never or living with a partner: In a typical week, how many times do you talk on the telephone with family, friends, or neighbors: 3 or more times per week How often do you get together with friends or relatives: 3 or more times per week How often do you attend yazdanism or synagogue services: 4 or more times per year Do you belong to any clubs or organizations such as yazdanism groups unions, [employer] or athletic groups, or school groups: no Total score: 3 Score interpretation: A score of greater than or equal to 2 indicates the lowest level of social isolation. Little interest or pleasure in doing things: not at all Feeling down, depressed, or hopeless: not at all Feel stressed/tense/nervous/anxious/difficulty sleeping: not at all Life stressors: recent of family or friend Do you think of yourself as: straight/heterosexual Gender Identity: female Meds Home Medications and Allergies Home Medications ?Medication ?Instructions ?Recorded ?Confirmed ?Type aspirin 81 mg tablet,delayed 81 mg PO DAILY 06/06/23 01/05/25 History release xfbuwz-bpmbodzy-sxeekaj 3 cap PO TID 06/06/23 01/05/25 History 36,000-114,000-180,000 unit capsule,delay rel (Creon) omega-3 fatty acids-fish oil 360 1 cap PO DAILY 06/06/23 01/05/25 History mg-1,200 mg capsule (Fish Oil) pramipexole 0.5 mg tablet 0.5 mg PO DAILY 06/06/23 01/05/25 History simvastatin 20 mg tablet 20 mg PO DAILY 06/06/23 01/05/25 History tacrolimus 0.5 mg capsule, 1 mg PO BID 06/06/23 01/05/25 History immediate-release levothyroxine 112 mcg tablet 112 mcg PO QDAY 06/07/23 01/05/25 History mycophenolate mofetil 250 mg 500 mg PO BID 12/31/23 01/05/25 History capsule magnesium oxide 400 mg (241.3 mg 400 mg PO BID #60 tabs 01/31/24 02/04/25 Rx magnesium) tablet tglquu-sfhttlyi-lrwgenx See Rx Instructions PO TID 06/18/24 01/05/25 History 36,000-114,000-180,000 unit capsule,delay rel (Creon) carvedilol 12.5 mg tablet 25 mg PO BID 01/05/25 01/05/25 History Allergies Allergy/AdvReac Type Severity Reaction Status Date / Time promethazine (From Phenergan) AdvReac Severe Confusion Verified 01/04/25 21:27 ciprofloxacin (From Cipro) AdvReac Mild HIVES Verified 01/04/25 21:27 Exam Constitutional Vital Signs, click to edit/add: Last Vital Signs Temp 97.6 F 01/05/25 01:24 Pulse 75 01/05/25 05:50 Resp 18 01/05/25 05:50 BP 127/67 01/05/25 05:50 Pulse Ox 98 01/05/25 05:50 O2 Del Method Room Air 01/05/25 05:50 Documenting provider has reviewed patient's vital signs: yes Common normals: no apparent distress Chest Common normals: inspection of chest normal Respiratory Common normals: normal respiratory effort and no use of accessory muscles Auscultation: rhonchi left lower and egophony left lower Cardio Common normals: regular rate, regular rhythm and no murmurs GI Common normals: Normal to inspection, nondistended, normoactive bowel sounds present and soft to palpation; tender Palpation: tender Details: epigastric Results Labs Labs: Short CBC 01/04/25 01/05/25 Range/Units 21:50 05:02 WBC 13.9 H 12.7 H (4.0-11.0) 10^3/uL Hgb 12.2 9.9 L (12.0-16.0) g/dL Hct 37.1 30.5 L (36.0-48.0) % Plt Count 219 190 (150-450) 10^3/uL BMP 01/04/25 01/05/25 21:50 05:02 Sodium 138 140 Potassium 3.2 L 3.1 L Chloride 104 110 H Carbon Dioxide 10.9 L 9.8 L BUN 116.0 H* 112.0 H* Creatinine 5.97 H* 5.36 H* Glucose 136 H 117 H Calcium 6.8 L 6.6 L Liver Function 01/04/25 01/05/25 Range/Units 21:50 05:02 Total Bilirubin 0.5 0.3 (0.2-1.0) mg/dL AST 33 30 (15-37) U/L ALT 49 38 (14-59) U/L Alkaline Phosphatase 310 H 254 H (46-116) U/L Albumin 3.4 2.7 L (3.4-5.0) g/dL Urine 01/05/25 Range/Units 01:15 Urine Color Lt. yellow (YELLOW) Urine Clarity Clear (CLEAR) Urine pH 5.5 (5.0-9.0) Ur Specific Spiro 1.015 (1.005-1.025) Urine Protein 30 A (NEG/TRACE) mg/dL Urine Glucose (UA) Negative (NEGATIVE) mg/dL Assessment and Plan Assessment and Plan (1) LLL pneumonia: (2) Acute kidney injury (nontraumatic): (3) Gastroenteritis: (4) Generalized weakness: (5) Acute UTI: (6) Heart transplant recipient: Plan Admission findings: Leukocytosis, abnormal UA, acute renal failure (baseline creatinine of 1.58 at her wellness exam, creatinine on admission of 5.97 which is 377.8% above baseline.), hypokalemia, hypomagnesemia, elevated alkaline phosphatase Left lower lobe pneumonia-IV antibiotics, holding off on aerosol treatments no wheezing currently Acute UTI-culture pending, antibiotics as outlined above should cover Acute renal failure-baseline creatinine of 1.58, admission creatinine of 5.97 which is 377.8% above baseline-ED continue with slow IV hydration, she has a history of heart failure in the past she is a cardiac transplant recipient, will check troponin and BNP, will give 1 bolus of a liter over 2 hours, then maintain fluid rate of 100 cc/h, this will need to be a slow process secondary to the heart transplant and history of heart failure Hypokalemia-IV supplementation as well as p.o. supplementation Hypomagnesemia-IV supplementation as well as p.o. supplementation Elevated alkaline phosphatase likely secondary to passive congestion secondary to the acute renal failure Cardiac transplant recipient-patient will check on BNP and troponin hold off on echocardiogram at this time, if troponin significantly elevated could consider echocardiogram at that time as she has not been on her rejection medications over the last week secondary to the hyperemesis Hypertension-continue Coreg at a lower dose, she has not been on her medication in quite some time but she does have significant tachycardia in the past Restless leg syndrome continue with current medications Hypercholesterolemia continue with current medications Hypothyroidism continue with current medications Pancreatic insufficiency-continue with current medications Admission status: Patient with acute renal failure history of acute combined congestive heart failure, UTI, left lower lobe pneumonia, medically necessary treatment will span 2 midnights. Inpatient status
[2025-01-05 08:19] LABS: Troponin I High Sensitivity 11.3 pg/mL (4.0-51.3)
[2025-01-05] MEDS: ONDANSETRON PF 4 MG/2 ML VIAL IV ×2 (08:53→21:47)
[2025-01-05] MEDS: POTASSIUM CHLORIDE 10 MEQ ER TABLET 20 MEQ PO ×2 (08:54→21:47)
[2025-01-05] MEDS: ATORVASTATIN CALCIUM 10 MG TABLET PO (08:54)
[2025-01-05] MEDS: MAGNESIUM OXIDE 400 MG TABLET PO ×2 (08:54→21:47)
[2025-01-05] MEDS: CITALOPRAM HYDROBROMIDE 20 MG TABLET PO (08:55)
[2025-01-05] MEDS: 0.9 % SODIUM CHLORIDE 1,000 ML 500 ML IV (08:55)
[2025-01-05] MEDS: POTASSIUM CHLORIDE 40 MEQ in 0.9 % SODIUM CHLORIDE 250 ML 67.5 MEQ IV (08:55)
[2025-01-05] MEDS: PRAMIPEXOLE 0.125 MG TABLET 0.5 MG PO (08:55)
[2025-01-05] MEDS: CARVEDILOL 3.125 MG TABLET PO ×2 (08:55→21:47)
[2025-01-05] MEDS: ASPIRIN 81 MG TABLET.DR PO (08:55)
[2025-01-05] MEDS: FISH OIL 1,000 MG CAPSULE 1000 MG PO (08:55)
[2025-01-05] MEDS: L. ACIDOPHILUS/L.BULGARICUS 1 PACKET GRAN.PACK PO ×2 (08:55→21:47)
[2025-01-05] MEDS: 0.9 % SODIUM CHLORIDE 1,000 ML 100 ML IV ×2 (08:55→23:31)
[2025-01-05] MEDS: LIPASE PROTEASE AMYLASE 3 EACH PO (08:56)
[2025-01-05] MEDS: NON-FORMULARY 1 EACH (Mycophenolate Mofetil 250 mg capsule) 500 EACH PO ×2 (08:56→21:48)
[2025-01-05] MEDS: TACROLIMUS 0.5 MG PO ×2 (08:56→21:48)
[2025-01-05] MEDS: MAGNESIUM SULFATE IN WATER 4 GM/100 ML PIGGYBACK IV (08:56)
--- NOTE | 2025-01-05 13:18 | SWNOTE1 ---
Important Message from [employer] reviewed and discussed with patient. Pt. verbalized understanding and signed the form. Original given to patient and copy placed in patient?s chart.
--- NOTE | 2025-01-05 13:18 | SWNOTE1 ---
SW met with pt to discuss dc needs. Pt lives at [facility]. Pt voiced she does have friends and a good support that does check on her. Pt is usually independent with no devices. She states she still drives, cooks, cleans, etc. Pt did state she is feeling weaker as she has not been feeling well. Pt did ask SW about someone coming in to help her bathe. SW explained that SW can try to get an aide from , but sometimes aides are not available. Pt stated she is just so tired that sometimes she can't do her own laundry either. SW explained in detail that Home health does not come in and clean and do laundry. SW let her know this would be private caregivers. She voiced understanding. She stated HH would be nice as well as therapy can walk her. SW in agreement and will try to get an aide with HH as well. Pt has no preference, but does remember [facility] from a previous stay. Pt would like to use them. Referral sent to [address] Referral included face sheet, ED note, H&P, provider notes, case management report, and PT/OT notes.
--- NOTE | 2025-01-05 15:34 | SWNOTE1 ---
SW received a call from [address] they are able to accept. SW notified nurse.
[2025-01-05] MEDS: CEFTRIAXONE 1,000 MG in 0.9 % SODIUM CHLORIDE 50 ML 100 MG IV (21:57)
[2025-01-06] VITALS (18 sets, daily range): BP systolic 110–149; BP diastolic 58–88; PULSE 61–75; TEMP 35.9–36.4; O2SAT 96–100; BMI 16.8
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
[2025-01-06 05:24] LABS: Basophils Percent Auto 0.1 % (0.2-2.0); Eosinophils Absolute Auto 0.1 10^3/uL (0.0-0.7); Hematocrit 27.3 % (36.0-48.0); Hemoglobin 8.8 g/dL (12.0-16.0); Immature Granulocytes Abs Auto 0.04 10^3/uL (0.00-0.03); Immature Granulocytes Pct Auto 0.4 % (0.0-0.5); Lymphocytes Absolute Auto 0.6 10^3/uL (1.2-3.8); Lymphocytes Percent Auto 5.9 % (20.5-60.0); Mean Corpuscular HGB Conc 32.2 g/dL (29.9-35.2); Mean Corpuscular Hemoglobin 28.9 pg (26.7-34.0); Mean Corpuscular Volume 89.5 fL (81.0-99.0); Mean Platelet Volume 10.6 fL (9.5-13.5); Monocytes Absolute Auto 0.8 10^3/uL (0.3-0.8); Monocytes Percent Auto 7.9 % (1.7-12.0); Neutrophils Percent Auto 84.7 % (43.0-75.0); Platelet Count 187 10^3/uL (150-450); Red Blood Count 3.05 10^6/uL (4.20-5.40); Red Cell Distribution Width 14.8 % (11.0-15.0); White Blood Count 10.6 10^3/uL (4.0-11.0)
[2025-01-06 05:40] LABS: Alanine Aminotransferase 31 U/L (14-59); Albumin Level 2.6 g/dL (3.4-5.0); Alkaline Phosphatase 246 U/L (46-116); Anion Gap 20.7; Aspartate Amino Transferase 22 U/L (15-37); BUN Creatinine Ratio 23.2; Bilirubin Total 0.3 mg/dL (0.2-1.0); Calcium 6.9 mg/dL (8.5-10.1); Carbon Dioxide 10.6 mmol/L (21.0-32.0); Chloride 116 mmol/L (98-107); Estimated GFR (African America 12 (>=60 mL/min/1.73m^2); Estimated GFR (Non-African Ame 10 (>=60 mL/min/1.73m^2); Globulin 2.5 g/dL; Glucose 133 mg/dL (74-106); Magnesium 2.1 mg/dL (1.8-2.4); Potassium 4.3 mmol/L (3.5-5.1); Sodium 143 mmol/L (136-145); Total Protein 5.1 g/dL (6.4-8.2)
[2025-01-06] MEDS: LEVOTHYROXINE SODIUM 112 MCG TABLET PO (06:12)
--- NOTE | 2025-01-06 07:29 | CA_ITS ---
Patient Name: SYLVIA HANNA MR#: [id number] : 1945 Exam Date: 01/06/2025 Ordering Doctor: DR Vijay Davis . ECHOCARDIOGRAM REPORT PROCEDURE: CA ECHO LIMITED INDICATIONS: elevated BNP, Heart transplant recipient, diabetes COMPARISON: None. DESCRIPTION: Limited ECHOCARDIOGRAM Real-time transthoracic echocardiography with 2D and M-mode performed. QUALITY: Technical quality was good. Limited echocardiogram per physician order. LEFT VENTRICLE: Normal chamber size. Normal left ventricular wall thickness. LV EF: Global left ventricular systolic function is hyperdynamic; visually estimated ejection fraction is 65-70%. No wall motion abnormalities LEFT ATRIUM: Enlarged atrium consistent with heart transplant. RIGHT ATRIUM: Enlarged atrium consistent with heart transplant. RIGHT VENTRICLE: Normal chamber size. Normal systolic function. TRICUSPID VALVE: Normal mobility and thickness. MITRAL VALVE: Normal mobility and thickness. There is no mitral annular calcification. AORTIC VALVE: Normal trileaflet appearance. No visible sclerosis. Normal leaflet mobility. AORTIC ROOT: Normal diameter and appearance. PULMONIC VALVE: Not well visualized. PERICARDIUM: No evidence of pericardial effusion. IVC: Collapses with inspirations. CONCLUSION: 1. Global left ventricular systolic function is hyperdynamic; visually estimated ejection fraction is 65-70% 2. Normal right ventricular size and systolic function 3. Enlarged atria consistent with history of cardiac transplantation A limited echocardiogram was performed Adult Echocardiography Procedure Report Left Ventricle LVEDD (3.7 - 5.6 cm): 3.99 cm LVESD (2.2 - 4.0 cm): 2.25 cm LVIVS thickness (0.6 - 1.2 cm): 1.03 cm LVPW thickness (0.5 - 1.0 cm): 1.05 cm LVOT Diameter 2.25 cm Left Atrium LA Volume Index (2D A2C): 51.99 ml/m2 Left Atrium Systolic Dimension: 3.52 cm Mitral Valve Right Ventricle Aorta AO Root Diam: 3.17 cm Aortic Valve Tricuspid Valve Pulmonic Valve Right Atrium Right Atrium Systolic Pressure: 25.95 ml, 25.95 ml Dictated by: Michael Nolan M.D. on 01/07/2025 at 10:10 Approved by: Michael Nolan M.D. on 01/07/2025 at 10:12
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
[2025-01-06] MEDS: LINEZOLID IN DEXTROSE 5% 600 MG/300 ML PIGGYBACK 300 MG IV ×2 (08:51→20:54)
[2025-01-06] MEDS: POTASSIUM CHLORIDE 10 MEQ ER TABLET 20 MEQ PO ×2 (08:54→20:55)
[2025-01-06] MEDS: ASPIRIN 81 MG TABLET.DR PO (08:54)
[2025-01-06] MEDS: ATORVASTATIN CALCIUM 10 MG TABLET PO (08:54)
[2025-01-06] MEDS: FISH OIL 1,000 MG CAPSULE 1000 MG PO (08:55)
[2025-01-06] MEDS: PRAMIPEXOLE 1 MG TABLET 0.5 MG PO (08:55)
[2025-01-06] MEDS: L. ACIDOPHILUS/L.BULGARICUS 1 PACKET GRAN.PACK PO ×2 (08:55→20:56)
[2025-01-06] MEDS: CITALOPRAM HYDROBROMIDE 20 MG TABLET PO (08:55)
[2025-01-06] MEDS: MAGNESIUM OXIDE 400 MG TABLET PO ×2 (08:55→20:55)
[2025-01-06] MEDS: CARVEDILOL 3.125 MG TABLET PO ×2 (08:55→20:55)
[2025-01-06] MEDS: DORZOLAMIDE HCL 2%/TIMOLOL MALEATE 0.5% 200 DROP/10 ML BOTTLE OP ×2 (08:56→20:55)
[2025-01-06] MEDS: SILVER SULFADIAZINE 1% CREAM 25 GM TUBE 1 APPLIC TOPICAL ×2 (08:56→20:57)
[2025-01-06] MEDS: NON-FORMULARY 1 EACH (Mycophenolate Mofetil 250 mg capsule) 500 EACH PO ×2 (08:57→20:56)
[2025-01-06] MEDS: LIPASE PROTEASE AMYLASE 3 EACH PO (08:57)
[2025-01-06] MEDS: NON-FORMULARY 1 EACH (Tacrolimus 1 mg capsule) PO ×2 (08:58→20:56)
[2025-01-06] MEDS: PIPERACILLIN SODIUM/TAZOBACTAM 3.375 GM in 0.9 % SODIUM CHLORIDE 50 ML IV ×2 (09:54→21:09)
[2025-01-06] MEDS: ONDANSETRON PF 4 MG/2 ML VIAL IV ×2 (09:58→20:55)
[2025-01-06] MEDS: 0.9 % SODIUM CHLORIDE 1,000 ML 75 ML IV (13:09)
--- NOTE | 2025-01-06 18:53 | DIETREC ---
Dietitian consult completed. Recommend 237 mL Ensure Clear BID. Text to Dr. Davis.
[2025-01-07] VITALS (21 sets, daily range): BP systolic 108–159; BP diastolic 58–85; PULSE 57–66; TEMP 35–36.4; O2SAT 97–100
[2025-01-07] MEDS: 0.9 % SODIUM CHLORIDE 1,000 ML 75 ML IV (04:52)
[2025-01-07] MEDS: ONDANSETRON PF 4 MG/2 ML VIAL IV ×3 (05:22→21:41)
[2025-01-07] MEDS: LEVOTHYROXINE SODIUM 112 MCG TABLET PO (05:22)
[2025-01-07 06:06] LABS: Basophils Percent Auto 0.2 % (0.2-2.0); Eosinophils Absolute Auto 0.2 10^3/uL (0.0-0.7); Eosinophils Percent Auto 1.3 % (0.9-7.0); Hematocrit 27.3 % (36.0-48.0); Hemoglobin 8.7 g/dL (12.0-16.0); Immature Granulocytes Abs Auto 0.17 10^3/uL (0.00-0.03); Immature Granulocytes Pct Auto 1.5 % (0.0-0.5); Lymphocytes Absolute Auto 0.6 10^3/uL (1.2-3.8); Lymphocytes Percent Auto 5.6 % (20.5-60.0); Mean Corpuscular HGB Conc 31.9 g/dL (29.9-35.2); Mean Corpuscular Hemoglobin 29.3 pg (26.7-34.0); Mean Corpuscular Volume 91.9 fL (81.0-99.0); Mean Platelet Volume 10.9 fL (9.5-13.5); Monocytes Absolute Auto 0.8 10^3/uL (0.3-0.8); Monocytes Percent Auto 7.4 % (1.7-12.0); Neutrophils Absolute Auto 9.4 10^3/uL (1.4-6.5); Platelet Count 163 10^3/uL (150-450); Red Blood Count 2.97 10^6/uL (4.20-5.40); White Blood Count 11.2 10^3/uL (4.0-11.0)
[2025-01-07 06:35] LABS: Alanine Aminotransferase 34 U/L (14-59); Albumin Level 2.4 g/dL (3.4-5.0); Alkaline Phosphatase 221 U/L (46-116); Anion Gap 22.2; Aspartate Amino Transferase 26 U/L (15-37); Bilirubin Total 0.5 mg/dL (0.2-1.0); Calcium 7.2 mg/dL (8.5-10.1); Carbon Dioxide 10.9 mmol/L (21.0-32.0); Chloride 112 mmol/L (98-107); Estimated GFR (African America 13 (>=60 mL/min/1.73m^2); Estimated GFR (Non-African Ame 11 (>=60 mL/min/1.73m^2); Globulin 2.5 g/dL; Glucose 116 mg/dL (74-106); Magnesium 1.9 mg/dL (1.8-2.4); Potassium 5.1 mmol/L (3.5-5.1); Sodium 140 mmol/L (136-145); Total Protein 4.9 g/dL (6.4-8.2)
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
--- NOTE | 2025-01-07 07:16 | US_ITS ---
The [address] [address] Patient Name: SYLVIA HANNA MRN: [id number] date: 1945 Sex: F Assigned Patient Location: [place] Current Patient Location: [place] Accession/Order Number: [id number] Exam Date: 01/07/2025 07:45 Report Date: 01/07/2025 09:42 At the request of: TAO ROONEY Procedure: US renal bladder EXAMINATION: US renal bladder HISTORY: ARF COMPARISON: No relevant comparison available. TECHNIQUE: Ultrasound examination was performed of the bladder. FINDINGS: Right Kidney: Small in size normal in contour. Diffuse increase in cortical echotexture. The cortex measures 0.7 cm. Multiple areas of anechoic echogenicity measuring up to 7 mm, cysts are favored. Mild hydronephrosis. No solid cortical mass Height: 6.60 cm Length: 8.77 cm Width: 4.36 cm Left Kidney: Small in size normal in contour. Diffuse increase in cortical echotexture. The cortex measures 0.5 cm. Multiple areas of anechoic echogenicity measuring 2.1 cm, cysts are favored. No hydronephrosis or solid cortical mass. Scattered calcifications Height: 4.20 cm Length: 8.15 cm Width: 4.96 cm Urinary bladder: Prevoid volume 37 mL. Post void volume 0 mL Ureteral jets: Visualized bilaterally US/US renal bladder IMPRESSION: Bilateral renal cortical atrophy with increased cortical echotexture consistent with medical renal disease Electronically authenticated by: JAZLYN STRICKLAND Date: 01/07/2025 09:42
[2025-01-07 07:42] LABS: Troponin I High Sensitivity 6.7 pg/mL (4.0-51.3)
[2025-01-07] MEDS: LIPASE PROTEASE AMYLASE 3 EACH PO (08:41)
[2025-01-07] MEDS: CARVEDILOL 3.125 MG TABLET PO ×2 (08:41→21:28)
[2025-01-07] MEDS: ASPIRIN 81 MG TABLET.DR PO (08:41)
[2025-01-07] MEDS: ATORVASTATIN CALCIUM 10 MG TABLET PO (08:41)
[2025-01-07] MEDS: FISH OIL 1,000 MG CAPSULE 1000 MG PO (08:42)
[2025-01-07] MEDS: DORZOLAMIDE HCL 2%/TIMOLOL MALEATE 0.5% 200 DROP/10 ML BOTTLE OP ×2 (08:42→21:29)
[2025-01-07] MEDS: CITALOPRAM HYDROBROMIDE 20 MG TABLET PO (08:42)
[2025-01-07] MEDS: LINEZOLID IN DEXTROSE 5% 600 MG/300 ML PIGGYBACK 300 MG IV ×2 (08:43→21:27)
[2025-01-07] MEDS: MAGNESIUM OXIDE 400 MG TABLET PO ×2 (08:43→21:28)
[2025-01-07] MEDS: L. ACIDOPHILUS/L.BULGARICUS 1 PACKET GRAN.PACK PO ×2 (08:43→21:29)
[2025-01-07] MEDS: PRAMIPEXOLE 1 MG TABLET 0.5 MG PO (08:45)
[2025-01-07] MEDS: POTASSIUM CHLORIDE 10 MEQ ER TABLET 20 MEQ PO ×2 (08:45→21:28)
[2025-01-07] MEDS: NON-FORMULARY 1 EACH (Mycophenolate Mofetil 250 mg capsule) 500 EACH PO ×2 (08:45→22:35)
[2025-01-07] MEDS: ENSURE CLEAR 237 ML LIQUID PO (08:45)
[2025-01-07] MEDS: NON-FORMULARY 1 EACH (Tacrolimus 1 mg capsule) PO ×2 (08:48→22:35)
[2025-01-07] MEDS: SILVER SULFADIAZINE 1% CREAM 25 GM TUBE 1 APPLIC TOPICAL ×2 (08:53→22:35)
--- NOTE | 2025-01-07 09:01 | XR_ITS ---
The [address] [address] Patient Name: SYLVIA HANNA MRN: [id number] date: 1945 Sex: F Assigned Patient Location: [place] Current Patient Location: [place] Accession/Order Number: [id number] Exam Date: 01/07/2025 08:50 Report Date: 01/07/2025 09:23 At the request of: TAO ROONEY Procedure: XR chest 2V EXAMINATION: XR chest 2V HISTORY: follow up pneumonia COMPARISON: 01/04/2025 TECHNIQUE: PA and lateral FINDINGS: LUNGS: Moderate bibasilar infiltrates right greater than left. VASCULATURE: No increased pulmonary vasculature. PLEURA: Small bilateral pleural effusions right greater than left likely extending into the right major fissure CARDIAC: No cardiomegaly or cardiac silhouette abnormality. MEDIASTINUM: No visible mass or adenopathy. Median sternotomy wires BONES: Mild degenerative disc disease and spondylosis without visible acute abnormalities. OTHER: Negative. XR/XR chest 2V IMPRESSION: Increase in now bibasilar infiltrates and small pleural effusions Electronically authenticated by: JAZLYN STRICKLAND Date: 01/07/2025 09:23
--- NOTE | 2025-01-07 10:35 | PC.NURSE ---
Air Conditioner Installer Helper noted skin impairment to sacrum approximately measuring 5.0cm x 3.1cm x 0.1cm. Moderate amount of maceration noted to wound bed. Nonblanchable maroon discoloration noted to right buttock. Wound irrigated with NS covered open area with border foam. Patient offload to left side. Unit nurse notified of skin impairment and interventions.
[2025-01-07] MEDS: PIPERACILLIN SODIUM/TAZOBACTAM 3.375 GM in 0.9 % SODIUM CHLORIDE 50 ML IV ×2 (11:43→22:34)
[2025-01-07] MEDS: ACETAMINOPHEN 500 MG TABLET 1000 MG PO (11:43)
[2025-01-07 15:59] LABS: Internal Control Within Normal Limits; Occult Blood Negative
[2025-01-08] VITALS (13 sets, daily range): BP systolic 98–133; BP diastolic 54–71; PULSE 55–67; TEMP 36.3; O2SAT 96–98
[2025-01-08] MEDS: LEVOTHYROXINE SODIUM 112 MCG TABLET PO (06:02)
[2025-01-08 06:05] LABS: Hematocrit 27.9 % (36.0-48.0); Hemoglobin 8.8 g/dL (12.0-16.0); Mean Corpuscular HGB Conc 31.5 g/dL (29.9-35.2); Mean Corpuscular Hemoglobin 29.2 pg (26.7-34.0); Mean Corpuscular Volume 92.7 fL (81.0-99.0); Mean Platelet Volume 10.7 fL (9.5-13.5); Platelet Count 170 10^3/uL (150-450); Red Blood Count 3.01 10^6/uL (4.20-5.40); White Blood Count 11.7 10^3/uL (4.0-11.0)
[2025-01-08 06:25] LABS: Band Neutrophils Absolute 0.1 10^3/uL (0.0-0.3); Lymphocytes Absolute Manual 0.58 10^3/uL (1.20-3.80); Monocytes Absolute Manual 0.81 10^3/uL (0.30-0.80); Segmented Neut Absolute Manual 10.17 10^3/uL (1.4-6.5)
[2025-01-08 06:28] LABS: Alanine Aminotransferase 33 U/L (14-59); Albumin Globulin Ratio 0.8; Albumin Level 2.1 g/dL (3.4-5.0); Alkaline Phosphatase 189 U/L (46-116); Anion Gap 20.5; Aspartate Amino Transferase 22 U/L (15-37); BUN Creatinine Ratio 18.7; Bilirubin Total 0.3 mg/dL (0.2-1.0); Calcium 7.6 mg/dL (8.5-10.1); Carbon Dioxide 10.9 mmol/L (21.0-32.0); Chloride 113 mmol/L (98-107); Estimated GFR (African America 11 (>=60 mL/min/1.73m^2); Estimated GFR (Non-African Ame 9 (>=60 mL/min/1.73m^2); Globulin 2.6 g/dL; Glucose 118 mg/dL (74-106); Magnesium 1.9 mg/dL (1.8-2.4); Potassium 5.4 mmol/L (3.5-5.1); Sodium 139 mmol/L (136-145); Total Protein 4.7 g/dL (6.4-8.2)
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
[2025-01-08 08:12] LABS: TSH W/ REFLEX FT4 0.885 uIU/mL (0.358-3.740)
--- NOTE | 2025-01-08 09:00 | CM.NOTE ---
2nd Notice of Important Message From Medicare discussed with pt, pt denies questions or concerns.
[2025-01-08] MEDS: PRAMIPEXOLE 1 MG TABLET 0.5 MG PO (09:50)
[2025-01-08] MEDS: CITALOPRAM HYDROBROMIDE 20 MG TABLET PO (09:50)
[2025-01-08] MEDS: L. ACIDOPHILUS/L.BULGARICUS 1 PACKET GRAN.PACK PO (09:50)
[2025-01-08] MEDS: CARVEDILOL 3.125 MG TABLET PO (09:50)
[2025-01-08] MEDS: MAGNESIUM OXIDE 400 MG TABLET PO (09:50)
[2025-01-08] MEDS: ATORVASTATIN CALCIUM 10 MG TABLET PO (09:50)
[2025-01-08] MEDS: ASPIRIN 81 MG TABLET.DR PO (09:50)
[2025-01-08] MEDS: NON-FORMULARY 1 EACH (Mycophenolate Mofetil 250 mg capsule) 500 EACH PO (09:51)
[2025-01-08] MEDS: NON-FORMULARY 1 EACH (Tacrolimus 1 mg capsule) PO (09:51)
[2025-01-08] MEDS: LINEZOLID IN DEXTROSE 5% 600 MG/300 ML PIGGYBACK 300 MG IV (09:51)
[2025-01-08] MEDS: SILVER SULFADIAZINE 1% CREAM 25 GM TUBE 1 APPLIC TOPICAL (09:53)
[2025-01-08] MEDS: DORZOLAMIDE HCL 2%/TIMOLOL MALEATE 0.5% 200 DROP/10 ML BOTTLE OP (09:53)
[2025-01-08] MEDS: 0.9 % SODIUM CHLORIDE 250 ML 10 ML IV (09:54)
--- NOTE | 2025-01-08 10:21 | SWNOTE1 ---
Plan is now for pt to be transferred to higher level of care. SW updated [facility].
[2025-01-08] MEDS: PIPERACILLIN SODIUM/TAZOBACTAM 3.375 GM in 0.9 % SODIUM CHLORIDE 50 ML IV (11:32)
[2025-01-08 12:05] LABS: C. Difficile PCR NEGATIVE
--- NOTE | 2025-01-08 13:29 | P.CACN_ITS ---
History of Present Illness History of Present Illness Consult date: 01/08/25 Requesting physician: Vijay Davis Chief complaint: Shortness of breath, elevated BNP, questionable CH Narrative: This patient is 79-year-old female with prior history of nonischemic cardio myopathy requiring LVAD and eventually had heart transplant in 2005, history of hypertension, chronic kidney disease, hypothyroidism, and syncope due to orthostatic hypotension as well as pancreatic insufficiency. The patient presented to the hospital with 1 week history of cough, weakness, sputum, nausea vomiting diarrhea. She had a poor appetite and the food not testing good. She was not eating or drinking well. She denies any chest pain or orthopnea or leg edema. She reported dizziness and near syncope when standing. She was found to have significantly elevated white blood count with left shift, bibasilar infiltrates on the right more than on the left on chest x-ray. Also her BNP was significantly elevated at 14,000 but at the same time her creatinine went up to 4.6 from baseline 2.6 Patient reported that she is little better. She is lying in the bed supine without any distress and she is not on oxygen. Nurse reported that she did not have any vomiting today but she had mild diarrhea. She has not been eating well Review of Systems ROS Narrative All systems were reviewed and they were negative except for the positive findings noted above on history [facility] Medical History (Updated 01/04/25 @ 23:39 by Elisa Lopez MD) Head injury ?S09.90XA - Unspecified injury of head, initial encounter (ICD-10) Syncope ?R55 - Syncope and collapse (ICD-10) Depression ?F32.A - Depression, unspecified (ICD-10) Syncope ?R55 - Syncope and collapse (ICD-10) Acute kidney injury ?N17.9 - Acute kidney failure, unspecified (ICD-10) Gastroenteritis ?K52.9 - Noninfective gastroenteritis and colitis, unspecified (ICD-10) Heart transplant recipient ?Z94.1 - Heart transplant status (ICD-10) Heart transplant recipient ?Z94.1 - Heart transplant status (ICD-10) Surgical History (Updated 06/18/24 @ 00:55 by Toña Márquez RN) History of heart transplant ?Z94.1 - Heart transplant status (ICD-10) History of cholecystectomy ?Z90.49 - Acquired absence of other specified parts of digestive tract (ICD- 10) History of ureteroscopy ?Z98.890 - Other specified postprocedural states (ICD-10) Social History (Updated 06/18/24 @ 00:33 by Toña Márquez RN) Within the past year, how often did you have a drink containing alcohol: never Score interpretation: A score less than 3 is consistent with normal alcohol consumption. Smoking status: Never smoker Non-prescribed substance use: denies use Highest level of school completed/degree received: high school graduate Are you now , , , , never or living with a partner: In a typical week, how many times do you talk on the telephone with family, friends, or neighbors: 3 or more times per week How often do you get together with friends or relatives: 3 or more times per week How often do you attend religious or mormon services: 4 or more times per year Do you belong to any clubs or organizations such as religious groups unions, [employer] or athletic groups, or school groups: no Total score: 3 Score interpretation: A score of greater than or equal to 2 indicates the lowest level of social isolation. Little interest or pleasure in doing things: not at all Feeling down, depressed, or hopeless: not at all Feel stressed/tense/nervous/anxious/difficulty sleeping: not at all Life stressors: recent of family or friend Do you think of yourself as: straight/heterosexual Gender Identity: female Meds Home Medications and Allergies Home Medications ?Medication ?Instructions ?Recorded ?Confirmed ?Type aspirin 81 mg tablet,delayed 81 mg PO DAILY 06/06/23 01/05/25 History release omega-3 fatty acids-fish oil 360 1 cap PO DAILY 06/06/23 01/05/25 History mg-1,200 mg capsule (Fish Oil) pramipexole 0.5 mg tablet 0.5 mg PO DAILY 06/06/23 01/05/25 History simvastatin 20 mg tablet 20 mg PO .QHS 06/06/23 01/05/25 History levothyroxine 112 mcg tablet 112 mcg PO QDAY 06/07/23 01/05/25 History mycophenolate mofetil 250 mg 500 mg PO BID 12/31/23 01/05/25 History capsule magnesium oxide 400 mg (241.3 mg 400 mg PO BID #60 tabs 01/01/24 01/07/25 Rx magnesium) tablet [id number] See Rx Instructions PO TID 06/18/24 01/05/25 History 36,000-114,000-180,000 unit capsule,delay rel (Creon) carvedilol 25 mg tablet 25 mg PO BID 01/05/25 01/05/25 History dorzolamide 22.3 mg-timolol 6.8 1 drp ophthalmic (eye) BID 01/05/25 01/05/25 History mg/mL eye drops furosemide 40 mg tablet 40 mg PO .QOD 01/05/25 01/05/25 History tacrolimus 1 mg capsule, 1 mg PO BID 01/05/25 01/05/25 History immediate-release Allergies Allergy/AdvReac Type Severity Reaction Status Date / Time promethazine (From Phenergan) AdvReac Severe Confusion Verified 01/04/25 21:27 ciprofloxacin (From Cipro) AdvReac Mild HIVES Verified 01/04/25 21:27 Exam Narrative Exam Narrative: She is alert, oriented not in apparent distress HEENT within normal limits Neck: Supple normal range of motion, no carotid bruit, jugular venous pressure is normal Lungs: Clear to auscultation without rales or wheezes Abdomen: Soft benign no organomegaly or tenderness Extremities: No edema or cyanosis or clubbing Neurological examination: Grossly normal Constitutional Vital Signs, click to edit/add: Last Vital Signs Temp 97.3 F L 01/08/25 12:00 Pulse 58 L 01/08/25 12:00 Resp 18 01/08/25 12:00 BP 126/71 01/08/25 12:00 Pulse Ox 96 01/08/25 12:00 O2 Del Method Room Air 01/08/25 12:00 Results Labs and Meds Lab results: Cardiac Enzymes 01/08/25 Range/Units 05:23 AST 22 (15-37) U/L CBC 01/08/25 Range/Units 05:23 WBC 11.7 H (4.0-11.0) 10^3/uL RBC 3.01 L (4.20-5.40) 10^6/uL Hgb 8.8 L (12.0-16.0) g/dL Hct 27.9 L (36.0-48.0) % Plt Count 170 (150-450) 10^3/uL Comprehensive Metabolic Panel 01/08/25 Range/Units 05:23 Sodium 139 (136-145) mmol/L Potassium 5.4 H (3.5-5.1) mmol/L Chloride 113 H (98-107) mmol/L Carbon Dioxide 10.9 L (21.0-32.0) mmol/L BUN 86.0 H* (7.0-18.0) mg/dL Creatinine 4.61 H (0.55-1.02) mg/dL Glucose 118 H (74-106) mg/dL Calcium 7.6 L (8.5-10.1) mg/dL AST 22 (15-37) U/L ALT 33 (14-59) U/L Alkaline Phosphatase 189 H (46-116) U/L Total Protein 4.7 L (6.4-8.2) g/dL Albumin 2.1 L (3.4-5.0) g/dL Intake and Output 01/07/25 01/08/25 01/08/25 23:59 07:59 15:59 Intake Total 850 / 1300 50 / 1300 400 / 400 Output Total 50 / 400 350 / 350 Balance 800 / 900 50 / 900 50 / 50 Intake: Oral 100 / 100 IV 850 / 1200 50 / 1200 300 / 300 0.9 % Sodium Chloride 1,000 ml 500 / 500 @ 75 mls/hr IV .[id number] ROXANA Rx# :[id number] Linezolid in Dextrose 5% 600 mg 300 / 600 300 / 300 In 300 ml @ 300 mls/hr IV Q12H ROXANA Rx#:[id number] Piperacillin Sodium/Tazobactam 50 / 100 50 / 100 3.375 gm In 0.9 % Sodium Chloride 50 ml @ 12.5 mls/hr IV Q12H ROXANA Rx#:[id number] Output: Urine 50 / 200 150 / 150 Stool 200 / 200 Other: # Voids 1 # Bowel Movements 2 1 # Bowel Movement Diapers 2 EKG 01/06/2025 showed sinus rhythm, incomplete right bundle branch block, right axis deviation, nonspecific T changes. No significant change from prior EKG Limited echo 01/06/2025 showed hyperdynamic left ventricle with ejection fraction 65 to 70% Echo 09/25/2024 Hyperdynamic left ventricle, ejection fraction 65 to 70% Moderate pulmonary hypertension, RVSP 56 mmHg Mild tricuspid rotation Mild aortic insufficiency Echo 12/31/2023 Hyperdynamic left ventricle without wall motion abnormalities Mild pulmonary hypertension No valvular heart disease Lexiscan nuclear stress test August 2023 Normal without evidence of ischemia Assessment and Plan Assessment and Plan (1) Heart transplant recipient: Assessment and Plan: Left ventricle appears to be hyperdynamic on current echo with ejection fraction 65 to 70%. Clinically patient is not in congestive heart failure. Elevated BNP is due to acute on chronic renal insufficiency. Her respiratory symptoms are due to pneumonia. (2) Syncope: Assessment and Plan: Most likely due to orthostatic hypotension and dehydration (3) LLL pneumonia: (4) Acute kidney injury (nontraumatic): (5) Gastroenteritis: (6) Generalized weakness: (7) Acute UTI: (8) Hypertension: Plan As mentioned above I do not think the patient's respiratory symptoms are related to congestive heart failure. It is related to pneumonia. Elevated BNP is due to acute on chronic renal insufficiency I do not think the patient needed diuresing at this point. If anything she might need some IV fluid and nephrology evaluation to help with management of acute renal failure. The nurse told me that the patient is probably going to be transferred to [facility] because of that At this point continue with current management including IV antibiotics and nephrology evaluation Get tacrolimus level
--- NOTE | 2025-01-08 14:59 | PC.NURSE ---
RN answered pts bathroom call light, patient on toilet states she feels like she is going to pass out. Slurring her words. another RN came in room and helped assist patient back to bed. vital signs obtained. Dr. Davis notified
[2025-01-08] MEDS: 0.9 % SODIUM CHLORIDE 500 ML IV (15:45)
--- NOTE | 2025-01-08 18:38 | PC.NURSE ---
report called to Kiana at [facility], all questions answered
== END 2025-01-08 16:45 | disposition short-term general hospital (02) | DRG 177 ==
LOC: ER 23:40 → MS 01-05 01:20
PROVIDERS: Registered Nurse; Admitting Provider Family Medicine; Emergency Provider Emergency Medicine; PCP Family Medicine; Visit Provider Family Medicine
DX: J15.212 Pneumonia due to Methicillin resistant Staphylococcus aureus (principal); E43 Unspecified severe protein-calorie malnutrition; I50.21 Acute systolic (congestive) heart failure; N17.9 Acute kidney failure, unspecified; N39.0 Urinary tract infection, site not specified; Z94.1 Heart transplant status; L03.115 Cellulitis of right lower limb; Z68.1 Body mass index [BMI] 19.9 or less, adult; E87.6 Hypokalemia; E83.42 Hypomagnesemia; E83.51 Hypocalcemia; R74.8 Abnormal levels of other serum enzymes; G25.81 Restless legs syndrome; E78.00 Pure hypercholesterolemia, unspecified; E03.9 Hypothyroidism, unspecified; K86.89 Other specified diseases of pancreas; I11.0 Hypertensive heart disease with heart failure; Z79.82 Long term (current) use of aspirin; Z79.899 Other long term (current) drug therapy; Z90.49 Acquired absence of other specified parts of digestive tract; R53.1 Weakness; K52.9 Noninfective gastroenteritis and colitis, unspecified; B96.20 Unspecified Escherichia coli [E. coli] as the cause of diseases classified elsewhere; B95.62 Methicillin resistant Staphylococcus aureus infection as the cause of diseases classified elsewhere; T24.211A Burn of second degree of right thigh, initial encounter; R68.0 Hypothermia, not associated with low environmental temperature; D50.9 Iron deficiency anemia, unspecified
CPT/HCPCS: 36415; 71045; 71046; 76770; 80053; 81001; 83605; 83690; 83735; 83880; 84443; 84484; 85007; 85025; 85027; 87040; 87045; 87046; 87070; 87075; 87076; 87086; 87150; 87186; 87205; 87427; 87493; 87804; 87811; 93005; 93308; 94667; 94668; 94761; 96365; 96367; 96375; 97165; 99285; G0328; J0456; J0612; J0696; J2020; J2405; J2543; J3475; J3480; J3490

== ENCOUNTER 2025-03-01 11:03 | Outpatient (OUT) | payer MEDICARE, SELFPAY ==
[2025-03-01 11:10] LABS: Basophils Percent Auto 0.1 % (0.2-2.0); Eosinophils Absolute Auto 0.1 10^3/uL (0.0-0.7); Eosinophils Percent Auto 1.2 % (0.9-7.0); Hematocrit 28.8 % (36.0-48.0); Hemoglobin 9.4 g/dL (12.0-16.0); Immature Granulocytes Abs Auto 0.04 10^3/uL (0.00-0.03); Immature Granulocytes Pct Auto 0.4 % (0.0-0.5); Lymphocytes Absolute Auto 0.9 10^3/uL (1.2-3.8); Lymphocytes Percent Auto 9.3 % (20.5-60.0); Mean Corpuscular HGB Conc 32.6 g/dL (29.9-35.2); Mean Corpuscular Hemoglobin 30.7 pg (26.7-34.0); Mean Corpuscular Volume 94.1 fL (81.0-99.0); Mean Platelet Volume 9.9 fL (9.5-13.5); Monocytes Absolute Auto 0.7 10^3/uL (0.3-0.8); Neutrophils Absolute Auto 7.7 10^3/uL (1.4-6.5); Platelet Count 155 10^3/uL (150-450); Red Blood Count 3.06 10^6/uL (4.20-5.40); Red Cell Distribution Width 13.6 % (11.0-15.0); White Blood Count 9.3 10^3/uL (4.0-11.0)
[2025-03-01 11:24] LABS: Anion Gap 16.4; BUN Creatinine Ratio 22.3; Calcium 7.4 mg/dL (8.5-10.1); Carbon Dioxide 25.2 mmol/L (21.0-32.0); Chloride 102 mmol/L (98-107); Estimated GFR (African America 16 (>=60 mL/min/1.73m^2); Estimated GFR (Non-African Ame 13 (>=60 mL/min/1.73m^2); Glucose 149 mg/dL (74-106); Potassium 4.6 mmol/L (3.5-5.1); Sodium 139 mmol/L (136-145)
== END 2025-03-01 11:04 | disposition home or self-care (01) ==
LOC: LAB 11:03
PROVIDERS: PCP Family Medicine; Visit Provider Internal Medicine Interventional Cardiology
DX: K92.2 Gastrointestinal hemorrhage, unspecified (principal); Z94.1 Heart transplant status; N18.32 Chronic kidney disease, stage 3b
CPT/HCPCS: 36415; 80048; 85025

== ENCOUNTER 2025-03-02 16:24 | Emergency (ER) | payer MEDICARE, SELFPAY ==
[2025-03-02 16:34] VITALS: BP 151/96; PULSE 78; TEMP 36.6; O2SAT 100; BMI 18.3
== END 2025-03-02 17:38 | disposition left against medical advice (07) ==
LOC: ER 16:28
PROVIDERS: Emergency Provider Emergency Medicine; PCP Family Medicine
DX: Z53.21 Procedure and treatment not carried out due to patient leaving prior to being seen by health care provider (principal)
CPT/HCPCS: 80053; 81001; 83605; 83735; 84484

== ENCOUNTER 2025-03-03 09:53 | Emergency (ER) | payer MEDICARE, MEDICAID, SELFPAY ==
[2025-03-03 09:57] VITALS: BP 151/70; PULSE 74; TEMP 36.6; O2SAT 97; BMI 18.3
--- OUTSIDE RECORDS SUMMARY | 2025-03-03 10:04 | XMS_ITS | CCD ---
Author Organization [facility] Care Team Providers Care Local Delivery Driver Name Role Phone Tao Rooney MD Primary Care Provider [phone] SCOT ROGERS Primary Care Physician [phone] Tao Rooney MD Primary Care Provider [phone] Tao Rooney MD Primary Care Provider [phone] TORIBIO Sanchez, DR BURGER Primary Care Unavailable MISC, DR LOONEY Consulting Unavailable MISC, DR LOONEY Attending Unavailable MISC, DR LOONEY Admitting Unavailable HOY ., DR BURGER Primary Care Unavailable HOY ., DR BURGER Admitting Unavailable HOY ., DR BURGER Consulting Unavailable TORIBIO ., DR BURGER Attending Unavailable TORIBIO ., DR BURGER Primary Care Unavailable MOUKAHERMILO, DR LANCASTER Admitting Unavailable MOUKAHERMILO, DR LANCASTER Attending Unavailable SCOT ROGERS Consulting Unavailable TORIBIO ., DR BURGER Primary Care Unavailable SCOT ROGERS Admitting Unavailable SCOT ROGERS Attending Unavailable TORIBIO ., DR BURGER Primary Care Unavailable MISC, DR LOONEY Consulting Unavailable MISC, DR LOONEY Attending Unavailable MISC, DR LOONEY Admitting Unavailable NANCY BARFIELD Attending Unavailable GOPAL CUI Consulting UnavailHimanshu Sanchez, DR BURGER Primary Care Unavailable NANCY BARFIELD Admitting Unavailable JAZLYN DUBOSE Consulting Unavailable AMY Sanchez, NANCY Consulting Unavailable CAMERON NELSON Consulting Unavaila karen Sanchez, DR BURGER Primary Care Unavailable MOUKARBEL, DR LANCASTER Admitting Unavailable MOUKARBEL, DR LANCASTER Attending Unavailable SCOT ROGERS Attending Unavailable TORIBIO ., DR BURGER Primary Care Unavailable ZICAROLA, DR HAI Chambers Consulting Unavailable SCOT ROGERS Admitting Unavailable SCOT ROGERS Consulting Unavailable TORIBIO ., DR BURGER Primary Care Unavailable HOY ., DR BURGER Admitting Unavailable HOY ., DR BURGER Consulting Unavailable HOY ., DR BURGER Attending Unavailable DURHAM, DR JAZLYN Marcelino Consulting Unavailable SCOT ROGERS [...] Consulting Unavailable AMY ., NANCY Admitting Unavailable NANCY BARFIELD Attending Unavailable HOKrista ., DR BURGER Primary Care Unavailable ADELINE FLORES Consulting Unavailable ALEXSANDER HARDING Consulting Unavailable AMY ., NANCY Consulting Unavailable SCOT ROGERS Attending Unavailable HOKrista ., DR BURGER Primary Care Unavailable SCOT ROGERS Consulting Unavailable SCOT ROGERS Admitting Unavailable NON STAFF Attending Provider Unavailable NON STAFF Attending Unavailable NON STAFF Admitting Unavailable González Shanks Attending Unavailable Tao Rooney MD Primary Care Provider [phone] Sang Guerra MD Unavailable CIERRA, JERAD T Referring Unavailable AMSDELRudy TRAM Referring Unavailable CIERRA, JERAD T Referring Unavailable CARLOS JAY Referring Unavailabl e TAO ROONEY Referring Unavailable HORANI, RESHMA Admitting Unavailable CIERRA, JERAD T Attending Unavailable HORANI, RESHMA Referring Unavailable ZHUJOSE, CARLOS M Referring Unavailabl e CARLOS JAY M Referring Unavailabl e ANISHA DALY Attending Unavailable MOANISHA ESCOBEDO Attending Unavailable ANISHA DALY Attending Unavailable MARLYN TAYLOR Attending Unavailable HOY, TAO M Primary Care Unavailable NEAL, MALATHI Referring Unavailable MARLYN TAYLOR Attending Unavailable HOY, TAO M Primary Care Unavailable NEAL, MALATHI Referring Unavailable HOY, TAO M Primary Care Unavailable BACILIO JOHNS Attending Unavailable NEAL, MALATHI Referring Unavailable HOY, TAO M Primary Care Unavailable HOY, TAO M Primary Care Unavailable MZAIK, OBAIE Admitting Unavailable HORANI, RESHMA N Referring Unavailable JAMARI VALERIE Attending Unavailable Allergies Allergy Classification Reported Allergen(s) Allergy Type Date of Onset Reaction(s) Facility (19 sources) Acetaminophen / oxyCODONE; Translations: [OXYCODONE-ACETAM INOPHEN] Drug Allergy 05-18-20 14 GI Upset [facility] Work Phone: (20 sources) Promethazine; Translations: [PROMETHAZINE HCL] Drug Allergy 10-11-20 05 Other: See Comments [facility] (3 sources) Levamisole; Translations: [Phenergan] Drug Allergy 04-07-20 13 [facility] Repository (2 sources) Morphine; Translations: [MORPHINE] Drug Allergy 08-11-20 13 [facility] Repository (3 sources) Promethazine; Translations: [promethazine] Drug Allergy 08-12-20 22 Loss of consciousness (finding) [facility] (1 source) No Known Medication Allergies; Translations: [No Known Medication Allergies] Propensity to adverse reactions (disorder) [facility] Repository (7 sources) Ciprofloxacin; Translations: [CIPROFLOXACIN] Drug Allergy 06-07-20 23 Hives [facility] (6 sources) Morphine Drug Allergy 08-11-20 13 Other: See Comments [facility] Medications Current Medications Medication Drug Class(es) Dates Sig (Normalized) Sig (Original) acetaminophen 325 mg oral tablet (18 sources) Start: 04-30-2014 take 325-650 mg by mouth every four hours as needed acetaminophen 325 mg tablet Take 1-2 tablets by mouth every 4 hours as needed. 0 04/30/2014 Active Comment on above: Take 1-2 tablets by mouth every 4 hours as needed. alendronic acid 70 mg oral tablet (20 sources) Bisphosphonate Start: 01-07-2014 take 1 tablet [...] minutes. amitriptyline hydrochloride 10 mg oral tablet (18 sources) Tricyclic Antidepressant Start: 09-02-2019 take 1 tablet by mouth once daily at bedtime amitriptyline (ELAVIL) 10 mg tablet Take 1 tablet by mouth daily at bedtime. 09/02/2019 Active Comment on above: Take 1 tablet by bettina th daily at bedtime. amylase 070450 unt / lipase 36799 unt / protease [id number] unt delayed release oral capsule (20 sources) Start: 01-22-2025 End: 04-22-2025 take 3 capsules by mouth three times daily at mealtime lypfyi-pvjxartj-yz ylase (CREON) 24,000-76,000 -120,000 unit delayed release capsule Take 3 capsules by mouth three times a day with meals. 800 capsule 01/23/2025 9:52 AM EST 01/22/2025 04/22/2025 Active Start: 07-10-2022 Creon Oral, TI D, Refills(s) 0 Start Date: 07/10/22 Status: Ordered lipase-protease- amylase (CREON 36) 36,000-114,000- 180,000 unit delayed release capsule Take 4 capsules by mouth three times a day with meals. TAKE 3 CAPSULES THREE TIMES A DAY WITH MEALS AND 1 CAPSULE IF HAVING A SNACK Suspended lipase-protease- amylase (CREON) 24,000-76,000 -120,000 unit cpDR [...] 1 CAPSULE IF HAVING A SNACK Aspirin (20 sources) Platelet Aggregation Inhibitor, Nonsteroidal Anti-inflammatory Drug Start: 07-10-2022 aspirin Refills(s) 0 Start Date: 07/10/22 Status: Ordered Start: 12-28-2009 aspirin(ECOTRI N LOW STRENGTH 81 MG TAB) Take one(1) tablet daily. 0 12/28/2009 Active Comment on above: Take one(1) tablet d aily. brimonidine tartrate 2 mg/ml ophthalmic solution (4 sources) alpha-Adrenergic Agonist Start: 5 End: 5 take 1 drop(s) into the eye(s) three times daily in the morning brimonidine (ALPHAGAN) 0.2 % ophthalmic solution Use 1 Drop in the left eye three times a day. 15 mL 01/23/2025 9:52 AM EST 01/22/2025 05/03/2025 Active Bupropion (13 sources) Aminoketone Start: 2 buPROPion Oral, Refills(s) 0 Start Date: 07/10/22 Status: Ordered Start: 11-14-2017 take 1 tablet by bettina th once daily buPROPion XL (WELLBUTRIN XL) 300 mg 24 hr tablet Take 1 tablet by mouth once daily. 0 11/14/2017 Active Comment on above: Take 1 tablet by bettina th once daily. carvedilol 12.5 mg oral tablet (8 sources) alpha-Adrenergic Avtar, beta-Adrenergic Avtar Start: 01-25-2025 take 1 tablet by mouth twice daily at mealtime carvedilol (COREG) 12.5 mg tablet Take 1 tablet by mouth two times a day with meals. 180 tablet 01/25/2025 Active take 1 tablet by bettina th twice daily at mealtime carvedilol (COREG) 25 mg tablet Take 25 mg by mouth two times a day with meals. Suspended Cipro (3 sources) Quinolone Antimicrobial Start: 07-10-2022 Cipro Oral, q12hr, Refills(s) 0 Start Date: 07/10/22 Status: Ordered clonazePAM (14 sources) Benzodiazepine Start: 07-10-2022 clonazepam Ora l, TID, Refills(s) 0 Start Date: 07/10/22 Status: Ordered Start: 03-04-2019 clonazePAM (KL ONOPIN) 0.5 mg tablet Take 2 tablets by mouth as needed for up to 180 days. 03/04/2019 Suspended Comment on above: Take 2 tablets by [facility] as needed for up to 180 days. dorzolamide 20 mg/ml ophthalmic solution (4 sources) Carbonic Anhydrase Inhibitor Start: End: take 1 drop(s) into the eye(s) twice daily in the morning dorzolamide (TRUSOPT) 2 % ophthalmic solution Use 1 Drop in the left eye two times a day. 10 mL 01/23/2025 9:52 AM EST 01/22/2025 05/03/2025 Active ergocalciferol 1.25 mg oral capsule (4 sources) Provitamin D2 Compound Start: End: take 1 capsule by mouth every week in the morning ergocalciferol 50,000 unit capsule (VITAMIN D2, DRISDOL) Take 1 capsule by mouth one time a week for 4 doses. 5 capsule 01/23/2025 9:52 AM EST 01/22/2025 Active latanoprost 0.05 mg/ml ophthalmic solution (4 sources) Prostaglandin Analog Start: End: take 1 drop(s) into the eye(s) once daily at bedtime latanoprost (XALATAN) 0.005 % ophthalmic solution Use 1 Drop in the left eye daily at bedtime. 2.5 mL 01/23/2025 9:52 AM EST 01/22/2025 04/22/2025 Active levothyroxine sodium 0.112 mg oral tablet (20 sources) l-Thyroxine Start: End: take 1 tablet by mouth once daily in the morning levothyroxine (SYNTHROID) 112 mcg tablet Take 1 tablet by mouth daily at 6 am. 90 tablet 01/22/2025 04/22/2025 Active Start: 07-10-2022 Synthroid Oral , Daily, Refills(s) 0 Start Date: 07/10/22 Status: Ordered Start: 03-04-2019 take 1 tablet by bettina th once daily levothyroxine (SYNTHROID) 88 mcg tablet Take 1 tablet by mouth once daily. 03/04/2019 Suspended Comment on above: Take 1 tablet by bettina th once daily. loperamide hydrochloride 2 mg oral tablet (18 sources) Opioid Agonist Start: 01-22-2025 take 1 tablet by mouth every twelve hours as needed loperamide HCl (IMODIUM) 2 mg tab Take 1 tablet by mouth two times a day as needed. 12 tablet 01/23/2025 9:52 AM EST 01/22/2025 Active take 1 tablet by mouth three maría es daily Loperamide HCl (IMODIUM) 2 mg tab Take 2 mg by mouth three times daily. Suspended Comment on above: Take 2 mg by mouth t hree times daily. Losartan (17 sources) Angiotensin 2 Receptor Avtar Start: 07-10-2022 losartan Oral, Daily, Refills(s) 0 Start Date: 07/10/22 Status: Ordered Start: 03-04-2019 take 1 tablet by bettina th once daily losartan (COZAAR) 100 mg tablet Take 1 tablet by mouth once daily. 03/04/2019 Suspended Comment on above: Take 1 tablet by bettina th once daily. magnesium oxide 400 mg oral tablet (18 sources) Start: 01-25-2025 take 1 tablet by mouth three times daily magnesium oxide (MAG-OX) 400 mg (241.3 mg magnesium) tablet Take 1 tablet by mouth three times a day. 90 tablet 01/25/2025 Active Start: 03-04-2019 take 1 tablet by bettina th once daily magnesium oxide (MAG-OX) 400 mg (241.3 mg magnesium) tablet Take 1 tablet by mouth once daily. 03/04/2019 Suspended Comment on above: Take 1 tablet by ebttina th once daily. Meclizine (3 sources) Antiemetic Start: 07-10-2022 meclizine TID, Refills(s) 0 Start Date: 07/10/22 Status: Ordered Metoprolol (3 sources) beta-Adrenergic Avtar Start: 07-10-2022 metoprolol Refills(s) 0 Start Date: 07/10/22 Status: Ordered MULTIVITAMIN TAB (14 sources) Start: 09-06-2006 MULTIVITAMIN TAB Indications: Other and unspecified adverse effect of drug, medicinal and biological substance , Encounter for long-term (current) use of steroids Take one(1) tablet daily. 0 09/06/2006 Suspended Start: 09-06-2006 MULTIVITAMIN T AB Indications: Other and unspecified adverse effect of drug, medicinal and biological substance , Encounter for long-term (current) use of steroids Take one(1) tablet daily. 0 09/06/2006 Active Comment on above: Take one(1) tablet d aily. mycophenolate mofetil 250 mg oral capsule (20 sources) Start: 01-30-2025 mycophenolate mofetil (CELLCEPT) 250 mg capsule Take 1 capsule by mouth two times a day. Patient should start on January 30, 2025. 120 capsule 2 01/30/2025 Active Start: 01-30-2025 mycophenolate mofetil (CELLCEPT) 250 mg capsule Take 1 capsule by mouth two times a day. Patient should start on January 30, 2025. 120 capsule 2 01/30/2025 Active Start: 01-30-2025 mycophenolate mofetil (CELLCEPT) 250 mg capsule Take 1 capsule by mouth two times a day. Patient should start on January 30, 2025. 120 capsule 2 01/30/2025 Active Start: 11-15-2023 End: 12-28-2024 take 2 capsules by mouth once daily in the morning mycophenolate mofetil (CELLCEPT) 250 mg capsule TAKE 2 CAPS BY MOUTH EVERY DAY IN THE MORNING & 2 CAPS IN THE EVENING 120 capsule 2 12/28/2024 Suspended Start: 07-26-2022 End: 09-11-2022 take 2 capsules [...] every evening. 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 pantoprazole 40 mg delayed release oral tablet (4 sources) Proton Pump Inhibitor Start: 5 End: 5 take 1 tablet by mouth twice daily before mealtime, then take 4 tablets by mouth in the evening pantoprazole DR (PROTONIX) 40 mg tablet Take 1 tablet by mouth two times a day before meals at 6 am and 4 pm for 108 doses. 108 tablet 01/23/2025 9:52 AM EST 01/22/2025 03/18/2025 Active perflutren lipid microspheres 1.3 mL in NaCl (PF) 0.9% 10 mL injection (DEFINITY) (9 sources) Start: 2 End: 3 perflutren lipid microspheres 1.3 mL in NaCl (PF) 0.9% 10 mL injection (DEFINITY) Pramipexole (17 sources) Nonergot Dopamine Agonist Start: 2 pramipexole Oral, Refills(s) 0 Start Date: 07/10/22 Status: Ordered Start: 04-25-2015 take 1 tablet by bettina th once daily at bedtime pramipexole (MIRAPEX) 0.25 mg tablet Take 1 tablet by mouth daily at bedtime. 0 04/25/2015 Suspended Comment on above: Take 1 tablet by bettina th daily at bedtime. predniSONE (3 sources) Start: 07-10-2022 predniSONE Oral, Daily, Refills(s) 0 Start Date: 07/10/22 Status: Ordered Simvastatin (20 sources) HMG-CoA Reductase Inhibitor Start: 07-10-2022 simvastatin Oral, Refills(s) 0 Start Date: 07/10/22 Status: Ordered Start: 05-29-2017 take 1 tablet by bettina th once daily at bedtime simvastatin (ZOCOR) 20 mg tablet Take 1 tablet by mouth daily at bedtime. 90 tablet 3 05/29/2017 Active Comment on above: Take 1 tablet by bettina th daily at bedtime. sodium bicarbonate 650 mg oral tablet (4 sources) Start: 01-22-20 take 1 tablet by mouth three times daily in the morning sodium bicarbonate 650 mg tablet Take 1 tablet by mouth three times a day. 270 tablet 01/23/2025 9:52 AM EST 01/22/2025 Active 125 ml sodium chloride 9 mg/ml prefilled syringe (9 sources) Start: 02-10-20 End: 05-11-20 sodium chloride 0.9 % (flush) 10 mL (BD POSIFLUSH) tacrolimus 0.5 mg oral capsule (20 sources) Calcineurin Inhibitor Immunosuppressant Start: 01-22-20 take 1 capsule by mouth twice daily in the morning tacrolimus IR (PROGRAF) 0.5 mg capsule Take 1 capsule by mouth two times a day. 180 capsule 01/23/2025 9:52 AM EST 01/22/2025 Active Start: 07-10-2022 tacrolimus Ref ills(s) 0 Start Date: 07/10/22 Status: Ordered Start: 07-05-2022 take 1 capsule by mo ut once daily tacrolimus IR (PROGRAF) 0.5 mg capsule Indications: Heart transplanted (HCC) Take 1 capsule by mouth once daily. 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 No Dr Don 07/05/2022 Suspended Start: 05-08-2022 End: 07-05-2022 take 1 capsule [...] Dr Don Take 1 capsule by mo ut once daily in AM. 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 No Dr Don Take 1 capsule by mo ut twice daily. 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 No Dr Don Take 1 capsule by [facility] once daily. 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 No Dr Don 12 hr timolol 5 mg/ml ophthalmic solution (4 sources) beta-Adrenergic Avtar Start: End: timolol maleate (TIMOPTIC) 0.5 % ophthalmic solution Use 1 Drop in the left eye two times a day. 10 mL 01/23/2025 9:52 AM EST 01/22/2025 05/03/2025 Active vancomycin 125 mg oral capsule (2 sources) Glycopeptide Antibacterial Start: End: take 1 capsule by mouth four times daily in the morning vancomycin (VANCOCIN) 125 mg capsule Take 1 capsule by mouth four times daily for 6 days. 24 capsule 01/23/2025 9:52 AM EST 01/23/2025 01/29/2025 Active Completed/Discontinued Medications Medication Drug Class(es) Dates Sig (Normalized) Sig (Original) benoxinate hydrochloride 4 mg/ml / fluorescein sodium 3 mg/ml ophthalmic solution (1 source) Diagnostic Dye Start: 01-20-2025 End: 01-21-2025 fluorescein-benoxina te 0.3-0.4 % 1 Drop (FLURESS) cholecalciferol 0.025 mg oral tablet (14 sources) Vitamin D Start: 04-01-2012 take 1 tablet by mouth once daily Cholecalciferol, Vitamin D3, (VITAMIN D) 1,000 unit Tab Take 1 tablet by mouth once daily. 04/01/2012 Suspended Comment on above: Take 1 tablet by [facility] once daily. diphenhydrAMINE hydrochloride 2.5 mg/ml oral solution (1 source) Histamine-1 Receptor Antagonist Start: 01-20-2025 End: 01-21-2025 diphenhydrAMINE 12.5-50 mg oral liquid (BENADRYL) dorzolamide HCl/timolol maleat (COSOPT OPHTHALMIC) (4 sources) take 1 drop(s) into the eye(s) twice daily dorzolamide HCl/timolol maleat (COSOPT OPHTHALMIC) Use 1 Drop in the left eye two times a day. Suspended fluorescein 250 mg injection (1 source) Start: 01-20-2025 End: 01-21-2025 fluorescein 250 mg injection omega-3 fatty acids 1,000 mg cap (14 sources) Start: 03-12-2014 take 2 capsules by mouth once daily omega-3 fatty acids 1,000 mg cap Indications: Heart replaced by transplant (HCC) Take 2 capsules by mouth once daily. 03/12/2014 Suspended Start: 03-12-2014 take 2 capsules by m [...] 2 capsules by m outh once daily. phenylephrine hydrochloride 25 mg/ml ophthalmic solution (2 sources) alpha-1 Adrenergic Agonist Start: 01-20-2025 End: 01-21-2025 PHENYLephrine 2.5 % 1 Drop (AK-DILATE, KAIDEN-SYNEPHRINE) Start: 01-20-2025 End: 01-21-2025 1 Drop, BOTH EYES, DIRECT ED, Starting on Sat01/20/25 at 1530, Until Sat01/21/25 at 0259, Administer for dilation PROTECT FROM LIGHT proparacaine hydrochloride 5 mg/ml ophthalmic solution (1 source) Local Anesthetic Start: 01-20-2025 End: 01-21-2025 proparacaine 0.5 % 1 Drop (ALCAINE) tropicamide 10 mg/ml ophthalmic solution (2 sources) Anticholinergic Start: 01-20-2025 End: 01-21-2025 tropicamide 1 % 1 Drop (MYDRIACYL) Start: 01-20-2025 End: 01-21-2025 1 Drop, BOTH EYES, DIRECT ED, Starting on Sat01/20/25 at 1530, Until Sat01/21/25 at 0259, Administer for dilation Problems Active Problems Problem Classification Problem Date Documented Da te Episodic/Chronic Acute and unspecified renal failure (3 sources) Chronic renal failure 07-10-2022 Chronic Acute and unspecified renal failure (20 sources) Acute injury of kidney; Translations: [Acute kidney failure, unspecified] Onset: 4 Resolved: 5 11-27-2021 Episodic Anxiety disorders (20 sources) Anxiety disorder; Translations: [Anxiety disorder, unspecified] Onset: 5 07-05-2015 Chronic Cataract (5 sources) Artificial lens present; Translations: [Presence of intraocular lens] Onset: 5 01-12-2025 Chronic Chronic kidney disease (12 sources) Chronic kidney disease stage 3B ; Translations: [Stage 3b chronic kidney disease] Onset: 5 01-11-2025 Chronic Chronic kidney disease (2 sources) Chronic kidney disease; Translations: [Chronic kidney disease, stage 3b] Onset: 3 Coagulation and hemorrhagic disorders (8 sources) Thrombocytopenic disorder; Translations: [Thrombocytopenia, unspecified] Onset: 5 01-11-2025 Chronic Congestive heart failure; nonhypertensive (2 sources) Unspecified diastolic (congestive) heart failure; Translations: [Heart failure, unspecified] Onset: 2 Chronic Coronary atherosclerosis and other heart disease (3 sources) Coronary arteriosclerosis 07-10-2022 Chronic Deficiency and other anemia (3 sources) Anemia 07-10-2022 Episodic Deficiency and other anemia (8 sources) Normocytic anemia; Translations: [Anemia, unspecified] Onset: 5 01-11-2025 Episodic Diabetes mellitus with complications (1 source) 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; Translations: [Type 2 diabetes mellitus with moderate nonproliferative diabetic retinopathy with macular edema, right eye] 01-21-2025 Chronic Diabetes mellitus without complication (20 sources) Type 2 diabetes mellitus; Translations: [Type 2 diabetes mellitus without complications] Onset: 4 Chronic Disorders of lipid metabolism (8 sources) Hyperlipidemia; Translations: [Hyperlipidemia, unspecified] Onset: 5 01-11-2025 Chronic Essential hypertension (20 sources) Hypertensive disorder; Translations: [Essential (primary) hypertension] Onset: 3 Resolved: 9 07-10-2022 Chronic Fever of unknown origin (4 sources) Fever, unspecified; Translations: [FEVER UNSPECIFIED] Onset: 3 Episodic Gastroduodenal ulcer (except hemorrhage) (4 sources) Ulcer of duodenum; Translations: [Duodenal ulcer, unspecified as acute or chronic, without hemorrhage or perforation] Onset: 5 01-22-2025 Chronic Gastroduodenal ulcer (except hemorrhage) (4 sources) Acute gastric ulcer without hemorrhage AND without perforation; Translations: [Acute gastric ulcer without hemorrhage or perforation] Onset: 5 01-22-2025 Episodic Gastrointestinal hemorrhage (2 sources) Gastrointestinal hemorrhage, unspecified; Translations: [Gastrointestinal hemorrhage, unspecified] Onset: 5 Episodic Glaucoma (4 sources) Secondary glaucoma ; 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, left eye, severe stage] Onset: 5 01-12-2025 Chronic Heart valve disorders (1 source) Rheumatic disorders of both mitral and aortic valves; Translations: [RHEUMATIC D/O MITRAL AORTIC VALVES] Onset: 3 Chronic Hypertension with complications and secondary hypertension (1 source) Hypertensive heart disease with heart failure; Translations: [HTN HEART DISEASE W/HEART FAIL] Onset: 3 Chronic Immunity disorders (8 sources) Patient immunocompromised; Translations: [Immunodeficiency, unspecified] Onset: 5 01-11-2025 Chronic Inflammation; infection of eye (except that caused by tuberculosis or sexually transmitteddisease) (1 source) Traumatic optic nerve injury; 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] 01-12-2025 Chronic Influenza (4 sources) Influenza due to Influenza A virus; Translations: [Influenza due to other identified influenza virus with other respiratory manifestations] Onset: 5 01-22-2025 Episodic Intestinal infection (8 sources) Viral gastroenteritis due to Gaylord-like agent; Translations: [Acute gastroenteropathy due to Gaylord agent] Onset: 5 01-22-2025 Episodic Mood disorders (2 sources) Mood disorders; Translations: [Depression, unspecified] Onset: 3 Nonspecific chest pain (1 source) Chest pain; Translations: [Chest pain, unspecified] Onset: 3 Episodic Nutritional deficiencies (7 sources) Deficiency of macronutrients; Translations: [Unspecified severe protein-calorie malnutrition] Onset: 5 01-13-2025 Chronic Other aftercare (1 source) Other rat exterminator (current) drug therapy; Translations: [OTH PRISON CURRENT DRUG THERAPY] Onset: 3 Episodic Other and ill-defined cerebrovascular disease (8 sources) Aneurysm of internal carotid artery; 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, nonruptured] Onset: 5 01-11-2025 Chronic Other circulatory disease (8 sources) Heart transplant status; Translations: [HEART TRANSPLANT STATUS] Onset: 3 Chronic Other diseases of kidney and ureters (3 sources) Kidney disease 07-10-2022 Episodic Other eye disorders (1 source) Bilateral posterior vitreous detachment; Translations: [Vitreous degeneration, bilateral] 01-21-2025 Chronic Other eye disorders (8 sources) Third cranial nerve weakness; Translations: [Third [oculomotor] nerve palsy, left eye] Onset: 5 01-11-2025 Episodic Other gastrointestinal disorders (1 source) Esophageal dysphagia; Translations: [Other dysphagia] Onset: 5 01-11-2025 Episodic Other gastrointestinal disorders (1 source) Dysphagia, unspecified; Translations: [Dysphagia, unspecified type] Onset: 5 Episodic Other nutritional; endocrine; and metabolic disorders (8 sources) Hypocalcemia; Translations: [Hypocalcemia] Onset: 5 01-11-2025 Chronic Other nutritional; endocrine; and metabolic disorders (1 source) Hypomagnesemia; Translations: [Hypomagnesemia] Onset: 5 Chronic Other nutritional; endocrine; and metabolic disorders (1 source) Hypocalcemia; Translations: [Hypocalcemia] Onset: 5 Chronic Other nutritional; endocrine; and metabolic disorders (1 source) Abnormal weight loss; Translations: [Abnormal weight loss] Onset: 4 Episodic Other upper respiratory infections (9 sources) Chronic ethmoidal sinusitis; Translations: [Chronic ethmoidal sinusitis] Onset: 7 Resolved: 3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 02474-6 ####[facility] LABIA [id number] [place] [address] [place] Glucose [Mass/Vol] 130 mg/dL High 74-99 [facility] Comment on above: Order Comment: Víctor friend Type: BLOOD SPECIMENOrdering Facility: [facility] Address: [address] [place] [address] Result Comment: The [place] [employer] (ADA) provides guidance for cutoff values for fasting glucose and random glucose. The ADA defines fasting as no caloric intake for at least 8 hours. Fasting plasma glucose results between 100 to 125 mg/dL indicate increased risk for diabetes (prediabetes).Fasting plasma glucose results greater than or equal to 126 mg/dL meet the criteria for diagnosis of diabetes. In the absence of unequivocal hyperglycemia, results should be confirmed by repeat testing. In a patient with classic symptoms of hyperglycemia or hyperglycemic crisis, random plasma glucose results greater than or equal to 200 mg/dL meet the criteria for diagnosis of diabetes.Reference: Standards of Medical Care in Diabetes 2016, [place] [employer]. Diabetes Care. 2016.39(Suppl 1). Performed By: #### 1 9123-9, 44343-1 ####[facility] LABCLIA [id number] [place] [address] [place] Phosphate [Mass/Vol] 3.3 mg/dL Normal 2.7-4.8 [facility] Comment on above: Order Comment: Speci men Type: BLOOD SPECIMENOrdering Facility: [facility] Address: [address] [place] [address] Performed By: #### 1 9123-9, 43416-0 ####[facility] LABCLIA [id number] [place] [address] [place] Potassium [Moles/Vol] 5.1 mmol/L Normal 3.7-5.1 [facility] Comment on above: Order Comment: Speci men Type: BLOOD SPECIMENOrdering Facility: [facility] Address: [address] [place] [address] Performed By: #### 1 9123-9, 24226-7 ####[facility] LABCLIA [id number] [place] [address] [place] Sodium [Moles/Vol] 131 mmol/L Low 136-144 [facility] Comment on above: Order Comment: Speci men Type: BLOOD SPECIMENOrdering Facility: [facility] Address: [address] [place] [address] Performed By: #### 1 9123-9, 82204-6 ####[facility] LABCLIA [id number] [place] [address] [place] Urea nitrogen [Mass/Vol] 54 mg/dL High 7-21 [facility] Comment on above: Order Comment: Speci men Type: BLOOD SPECIMENOrdering Facility: [facility] Address: [address] [place] [address] Performed By: #### 1 9123-9, 97575-2 ####[facility] LABCLIA [id number] [place] [address] [place] Sodium ?Tm Ur-sCncon 025 Sodium Unsp time (U) [Moles/Vol] 100 mmol/L Normal 14-216 [facility] Comment on above: Order Comment: Speci men Type: URINE SPECIMENOrdering Facility: [facility] Address: [address] [place] [address] Performed By: #### 3 5678-2 ####[facility] LABCLIA [id number] [place] [address] [place] TYPE + SCREENon 01-24-2025 ABO O Normal [facility] Comment on above: Order Comment: Speci men Type: BLOOD SPECIMENOrdering Facility: [facility] Address: [address] [place] [address] Performed By: #### T SCR ####[facility] BLOOD BANKCLIA [id number] [place] [address] [place] Rh Nom (Bld) Negative Normal [facility] Comment on above: Order Comment: Speci men Type: BLOOD SPECIMENOrdering Facility: [facility] Address: [address] [place] [address] Performed By: #### T SCR ####[facility] BLOOD BANKCLIA [id number] [place] [address] [place] TYPE AND SCREEN EXPIRATION 01/27/2025 23:59 Normal [facility] Comment on above: Order Comment: Speci men Type: BLOOD SPECIMENOrdering Facility: [facility] Address: [address] [place] [address] Performed By: #### T SCR ####[facility] BLOOD BANKIA [id number] [place] [address] [place] Tacrolimus Bld-mCncon 2024 Tacrolimus (Bld) [Mass/Vol] 8.2 ng/mL Normal 5.0-20.0 [facility] Comment on above: Order Comment: Speci men Type: BLOOD SPECIMENOrdering Facility: [facility] Address: [address] [place] [address] Result Comment: Ema vidualized target levels for a given patient will [...] situation. Test performed by chemiluminescent immunoassay using PANOSOL Alinity i. Performed By: #### 1 1253-2 ####[facility] LABIA [id number] [place] [address] [place] CASE MANAGEMon 01-23-2025 CASE MANAGEM Normal [facility] CBC panel Auto (Bld)on 01-23 Erythrocyte distribution width (RBC) [Ratio] 13.7 % Normal 11.5-15.0 [facility] Comment on above: Order Comment: Speci men Type: BLOOD SPECIMENOrdering Facility: [facility] Address: [address] [place] [address] Performed By: #### 5 8410-2 ####[facility] LABIA [id number] [place] [address] [place] Hematocrit (Bld) [Volume fraction] 25.1 % Low 36.0-46.0 [facility] Comment on above: Order Comment: Speci men Type: BLOOD SPECIMENOrdering Facility: [facility] Address: [address] [place] [address] Performed By: #### 5 8410-2 ####[facility] LABIA [id number] [place] [id number] [place] Hemoglobin (Bld) [Mass/Vol] 8.1 g/dL Low 11.5-15.5 [facility] Comment on above: Order Comment: Speci men Type: BLOOD SPECIMENOrdering Facility: [facility] Address: [address] [place] [address] Performed By: #### 5 8410-2 ####[facility] LABIA [id number] [place] [address] [place] MCH (RBC) [Entitic mass] 29.3 pg Normal 26.0-34.0 [facility] Comment on above: Order Comment: Speci men Type: BLOOD SPECIMENOrdering Facility: [facility] Address: [address] [place] [address] Performed By: #### 5 8410-2 ####[facility] [id number] [place] [address] [place] MCHC (RBC) [Mass/Vol] 32.3 g/dL Normal 30.5-36.0 [facility] Comment on above: Order Comment: Speci men Type: BLOOD SPECIMENOrdering Facility: [facility] Address: [address] [place] [address] Performed By: #### 5 8410-2 ####[facility] [id number] [place] [address] [place] MCV (RBC) [Entitic vol] 90.9 fL Normal 80.0-100.0 [facility] Comment on above: Order Comment: Speci men Type: BLOOD SPECIMENOrdering Facility: [facility] Address: [address] [place] [address] Performed By: #### 5 8410-2 ####[facility]GI[facility] [id number] [place] [address] [place] Nucleated RBC (Bld) [#/Vol] 10*3/uL Normal <0.01 [facility] Comment on above: Order Comment: Speci men Type: BLOOD SPECIMENOrdering Facility: [facility] Address: [address] [place] [address] Performed By: #### 5 8410-2 ####[facility] [id number] [place] [address] [place] Platelet mean volume (Bld) [Entitic vol] 10.1 fL Normal 9.0-12.7 [facility] Comment on above: Order Comment: Speci men Type: BLOOD SPECIMENOrdering Facility: [facility] Address: [address] [place] [address] Performed By: #### 5 8410-2 ####[facility] LABCLIA [id number] [place] [address] [place] Platelets (Bld) [#/Vol] 288 10*3/uL Normal 150-400 [facility] Comment on above: Order Comment: Speci men Type: BLOOD SPECIMENOrdering Facility: [facility] Address: [address] [place] [address] Performed By: #### 5 8410-2 ####[facility] LABIA [id number] [place] [address] [place] RBC (Bld) [#/Vol] 2.76 10*6/uL Low 3.90-5.20 [place] Comment on above: Order Comment: Speci men Type: BLOOD SPECIMENOrdering Facility: [facility] Address: [address] [place] [address] Performed By: #### 5 8410-2 ####[facility] LABIA [id number] [place] [address] [place] WBC (Bld) [#/Vol] 8.89 10*3/uL Normal 3.70-11.00 [place] Comment on above: Order Comment: Speci men Type: BLOOD SPECIMENOrdering Facility: [facility] Address: [address] [place] [address] Performed By: #### 5 8410-2 ####[facility] LABCLIA [id number] [place] [address] [place] Magnesium SerPl-ncon 01-23 Magnesium [Mass/Vol] 1.8 mg/dL Normal 1.7-2.3 [facility] Comment on above: Order Comment: Speci men Type: BLOOD SPECIMENOrdering Facility: [facility] Address: [address] [place] [address] Performed By: #### 1 9123-9 ####[facility] LABCLIA [id number] [address] [address] [place] Magnesium [Mass/Vol] 1.6 mg/dL Low 1.7-2.3 [facility] Comment on above: Order Comment: Speci men Type: BLOOD SPECIMENOrdering Facility: [facility] Address: [address] [place] [address] Performed By: #### 1 9123-9, 52723-2 ####[facility] LABCLIA [id number] [place] [address] [place] Renal function 2000 panelon 01-23-2025 Albumin [Mass/Vol] 3.0 g/dL Low 3.9-4.9 [facility] Comment on above: Order Comment: Speci men Type: BLOOD SPECIMENOrdering Facility: [facility] Address: [address] [place] [address] Performed By: #### 1 9123-9, 78402-0 ####[facility] LABCLIA [id number] [place] [id number] [place] Anion gap [Moles/Vol] 10 mmol/L Normal 8-15 [facility] Comment on above: Order Comment: Speci men Type: BLOOD SPECIMENOrdering Facility: [facility] Address: [address] [place] [address] Performed By: #### 1 9123-9, 22602-2 ####[facility] LABCLIA [id number] [place] [id number] [place] Calcium [Mass/Vol] 8.0 mg/dL Low 8.5-10.2 [facility] Comment on above: Order Comment: Speci men Type: BLOOD SPECIMENOrdering Facility: [facility] Address: [address] [place] [address] Performed By: #### 1 9123-9, 88041-1 ####[facility] LABCLIA [id number] [place] [address] [place] Chloride [Moles/Vol] 97 mmol/L Low 98-107 [facility] Comment on above: Order Comment: Speci men Type: BLOOD SPECIMENOrdering Facility: [facility] Address: [address] [place] [address] Performed By: #### 1 9123-9, 38304-2 ####[facility] LABCLIA [id number] [place] [address] [place] CO2 [Moles/Vol] 24 mmol/L Normal 22-30 [facility] Comment on above: Order Comment: Speci men Type: BLOOD SPECIMENOrdering Facility: [facility] Address: [address] [place] [address] Performed By: #### 1 9123-9, 83384-2 ####[facility] LABCLIA [id number] [place] [address] [place] Creatinine [Mass/Vol] 2.26 mg/dL High 0.58-0.96 [facility] Comment on above: Order Comment: Speci men Type: BLOOD SPECIMENOrdering Facility: [facility] Address: [address] [place] [address] Performed By: #### 1 9123-9, 22148-5 ####[facility] LABCLIA [id number] [place] [address] [place] Creatinine and Glomerular filtration rate.predicted panel (S/P/Bld) 21 mL/min/1.73m??? Low >=60 [facility] Comment on above: Order Comment: Speci men Type: BLOOD SPECIMENOrdering Facility: [facility] Address: [address] [place] [address] Result Comment: Kelsey mated Glomerular Filtration Rate (eGFR) is calculated using the 2020 CKD-EPI creatinine equation. This equation utilizes serum creatinine, sex, and age as parameters. The creatinine assay has traceable calibration to isotope dilution-mass spectrometry. Refer to KDIGO guidelines for clinical interpretation. In patients with unstable renal function, e.g. those with acute kidney injury, the eGFR may not accurately reflect actual GFR. Performed By: #### 1 9123-9, 17751-6 ####[facility] LABCLIA [id number] [place] [address] [place] Glucose [Mass/Vol] 182 mg/dL High 74-99 [facility] Comment on above: Order Comment: Víctor friend Type: BLOOD SPECIMENOrdering Facility: [facility] Address: [address] [place] [address] Result Comment: The [place] [employer] (ADA) provides guidance for cutoff values for fasting glucose and random glucose. The ADA defines fasting as no caloric intake for at least 8 hours. Fasting plasma glucose results between 100 to 125 mg/dL indicate increased risk for diabetes (prediabetes).Fasting plasma glucose results greater than or equal to 126 mg/dL meet the criteria for diagnosis of diabetes. In the absence of unequivocal hyperglycemia, results should be confirmed by repeat testing. In a patient with classic symptoms of hyperglycemia or hyperglycemic crisis, random plasma glucose results greater than or equal to 200 mg/dL meet the criteria for diagnosis of diabetes.Reference: Standards of Medical Care in Diabetes 2016, [place] [employer]. Diabetes Care. 2016.39(Suppl 1). Performed By: #### 1 9123-9, 83252-4 ####[facility] LABIA [id number] [place] [address] [place] Phosphate [Mass/Vol] 2.8 mg/dL Normal 2.7-4.8 [facility] Comment on above: Order Comment: Víctor friend Type: BLOOD SPECIMENOrdering Facility: [facility] Address: [address] [place] [address] Performed By: #### 1 9123-9, 63606-6 ####[facility] LABIA [id number] [place] [address] [place] Potassium [Moles/Vol] 5.1 mmol/L Normal 3.7-5.1 [facility] Comment on above: Order Comment: Speci men Type: BLOOD SPECIMENOrdering Facility: [facility] Address: [address] [place] [address] Performed By: #### 1 9123-9, 33908-8 ####[facility] LABCLIA [id number] [place] [address] [place] Sodium [Moles/Vol] 131 mmol/L Low 136-144 [facility] Comment on above: Order Comment: Speci men Type: BLOOD SPECIMENOrdering Facility: [facility] Address: [address] [place] [address] Performed By: #### 1 9123-9, 56881-4 ####[facility] LABCLIA [id number] [place] [address] [place] Urea nitrogen [Mass/Vol] 49 mg/dL High 7-21 [facility] Comment on above: Order Comment: Speci men Type: BLOOD SPECIMENOrdering Facility: [facility] Address: [address] [place] [address] Performed By: #### 1 9123-9, 47963-8 ####[facility] LABCLIA [id number] [place] [address] [place] Tacrolimus Bld-ncon 2024 Tacrolimus (Bld) [Mass/Vol] 11.0 ng/mL Normal 5.0-20.0 [facility] Comment on above: Order Comment: Speci men Type: BLOOD SPECIMENOrdering Facility: [facility] Address: [address] [place] [address] Result Comment: Ema vidualized target levels for a given patient will [...] situation. Test performed by chemiluminescent immunoassay using PANOSOL Alinity i. Performed By: #### 1 1253-2 ####[facility] LABIA [id number] [address] [place] CASE MANAGEMon 01-22-2025 CASE MANAGEM Normal [facility] CBC panel Auto (Bld)on 01-22 Erythrocyte distribution width (RBC) [Ratio] 13.7 % Normal 11.5-15.0 [facility] Comment on above: Order Comment: Speci men Type: BLOOD SPECIMENOrdering Facility: [facility] Address: [address] [place] [address] Performed By: #### 5 8410-2 ####[facility] LABIA [id number] [address] [place] Hematocrit (Bld) [Volume fraction] 23.7 % Low 36.0-46.0 [facility] Comment on above: Order Comment: Speci men Type: BLOOD SPECIMENOrdering Facility: [facility] Address: [address] [place] [address] Performed By: #### 5 8410-2 ####[facility] LABIA [id number] [address] [place] Hemoglobin (Bld) [Mass/Vol] 7.6 g/dL Low 11.5-15.5 [facility] Comment on above: Order Comment: Speci men Type: BLOOD SPECIMENOrdering Facility: [facility] Address: [address] [place] [address] Performed By: #### 5 8410-2 ####[facility] LABIA [id number] [place] [address] [place] MCH (RBC) [Entitic mass] 29.5 pg Normal 26.0-34.0 [facility] Comment on above: Order Comment: Speci men Type: BLOOD SPECIMENOrdering Facility: [facility] Address: [address] [place] [address] Performed By: #### 5 8410-2 ####[facility] LABIA [id number] [place] [address] [place] MCHC (RBC) [Mass/Vol] 32.1 g/dL Normal 30.5-36.0 [facility] Comment on above: Order Comment: Speci men Type: BLOOD SPECIMENOrdering Facility: [facility] Address: [address] [place] [address] Performed By: #### 5 8410-2 ####[facility] [id number] [place] [address] [place] MCV (RBC) [Entitic vol] 91.9 fL Normal 80.0-100.0 [facility] Comment on above: Order Comment: Speci men Type: BLOOD SPECIMENOrdering Facility: [facility] Address: [address] [place] [address] Performed By: #### 5 8410-2 ####[facility] LABIA [id number] [place] [address] [place] Nucleated RBC (Bld) [#/Vol] 10*3/uL Normal <0.01 [facility] Comment on above: Order Comment: Speci men Type: BLOOD SPECIMENOrdering Facility: [facility] Address: [address] [place] [address] Performed By: #### 5 8410-2 ####[facility] [id number] [place] [address] [place] Platelet mean volume (Bld) [Entitic vol] 9.7 fL Normal 9.0-12.7 [facility] Comment on above: Order Comment: Speci men Type: BLOOD SPECIMENOrdering Facility: [facility] Address: [address] [place] [address] Performed By: #### 5 8410-2 ####[facility] LABCLIA [id number] [address] [address] [place] Platelets (Bld) [#/Vol] 254 10*3/uL Normal 150-400 [facility] Comment on above: Order Comment: Speci men Type: BLOOD SPECIMENOrdering Facility: [facility] Address: [address] [place] [address] Performed By: #### 5 8410-2 ####[facility] LABCLIA [id number] [place] [address] [place] RBC (Bld) [#/Vol] 2.58 10*6/uL Low 3.90-5.20 [place] Comment on above: Order Comment: Speci men Type: BLOOD SPECIMENOrdering Facility: [facility] Address: [address] [place] [address] Performed By: #### 5 8410-2 ####[facility] LABIA [id number] [place] [address] [place] WBC (Bld) [#/Vol] 5.73 10*3/uL Normal 3.70-11.00 [place] Comment on above: Order Comment: Speci men Type: BLOOD SPECIMENOrdering Facility: [facility] Address: [address] [place] [address] Performed By: #### 5 8410-2 ####[facility] LABIA [id number] [place] [address] [place] Magnesium SerPl-mCncon 01-22 Magnesium [Mass/Vol] 2.2 mg/dL Normal 1.7-2.3 [facility] Comment on above: Order Comment: Speci men Type: BLOOD SPECIMENOrdering Facility: [facility] Address: [address] [place] [address] Result Comment: Resu lt rechecked. Performed By: #### 1 9123-9, 98687-8 ####[facility] LABCLIA [id number] [place] [address] [place] Renal function 2000 panelon 01-22-2025 Albumin [Mass/Vol] 2.9 g/dL Low 3.9-4.9 [facility] Comment on above: Order Comment: Speci men Type: BLOOD SPECIMENOrdering Facility: [facility] Address: [address] [place] [address] Performed By: #### 1 9123-9, 39974-9 ####[facility] LABCLIA [id number] [place] [address] [place] Anion gap [Moles/Vol] 11 mmol/L Normal 8-15 [facility] Comment on above: Order Comment: Speci men Type: BLOOD SPECIMENOrdering Facility: [facility] Address: [address] [place] [address] Performed By: #### 1 9123-9, 66910-0 ####[facility] LABCLIA [id number] [place] [address] [place] Calcium [Mass/Vol] 7.5 mg/dL Low 8.5-10.2 [facility] Comment on above: Order Comment: Speci men Type: BLOOD SPECIMENOrdering Facility: [facility] Address: [address] [place] [address] Performed By: #### 1 9123-9, 14577-9 ####[facility] LABCLIA [id number] [place] [address] [place] Chloride [Moles/Vol] 100 mmol/L Normal 98-107 [facility] Comment on above: Order Comment: Speci men Type: BLOOD SPECIMENOrdering Facility: [facility] Address: [address] [place] [address] Performed By: #### 1 9123-9, 25574-4 ####[facility] LABCLIA [id number] [place] [address] [place] CO2 [Moles/Vol] 22 mmol/L Normal 22-30 [facility] Comment on above: Order Comment: Speci men Type: BLOOD SPECIMENOrdering Facility: [facility] Address: [address] [place] [address] Performed By: #### 1 9123-9, 20078-0 ####[facility] LABCLIA [id number] [place] [address] [place] Creatinine [Mass/Vol] 2.40 mg/dL High 0.58-0.96 [facility] Comment on above: Order Comment: Speci men Type: BLOOD SPECIMENOrdering Facility: [facility] Address: [address] [place] [address] Performed By: #### 1 9123-9, 78314-1 ####[facility] LABCLIA [id number] [address] STATES OF [facility] Creatinine and Glomerular filtration rate.predicted panel (S/P/Bld) 20 mL/min/1.73m??? Low >=60 [facility] Comment on above: Order Comment: Speci men Type: BLOOD SPECIMENOrdering Facility: [facility] Address: [address] [place] [address] Result Comment: Kelsey mated Glomerular Filtration Rate (eGFR) is calculated using the 2020 CKD-EPI creatinine equation. This equation utilizes serum creatinine, sex, and age as parameters. The creatinine assay has traceable calibration to isotope dilution-mass spectrometry. Refer to KDIGO guidelines for clinical interpretation. In patients with unstable renal function, e.g. those with acute kidney injury, the eGFR may not accurately reflect actual GFR. Performed By: #### 1 9123-9, 59682-3 ####[facility] LABCLIA [id number] [place] [address] [place] Glucose [Mass/Vol] 173 mg/dL High 74-99 [facility] Comment on above: Order Comment: Speci men Type: BLOOD SPECIMENOrdering Facility: [facility] Address: [address] [place] [address] Result Comment: The [place] [employer] (ADA) provides guidance for cutoff values for fasting glucose and random glucose. The ADA defines fasting as no caloric intake for at least 8 hours. Fasting plasma glucose results between 100 to 125 mg/dL indicate increased risk for diabetes (prediabetes).Fasting plasma glucose results greater than or equal to 126 mg/dL meet the criteria for diagnosis of diabetes. In the absence of unequivocal hyperglycemia, results should be confirmed by repeat testing. In a patient with classic symptoms of hyperglycemia or hyperglycemic crisis, random plasma glucose results greater than or equal to 200 mg/dL meet the criteria for diagnosis of diabetes.Reference: Standards of Medical Care in Diabetes 2016, [place] [employer]. Diabetes Care. 2016.39(Suppl 1). Performed By: #### 1 9123-9, 88632-1 ####[facility] LABIA [id number] [place] [address] [place] Phosphate [Mass/Vol] 3.2 mg/dL Normal 2.7-4.8 [facility] Comment on above: Order Comment: Speci men Type: BLOOD SPECIMENOrdering Facility: [facility] Address: [address] [place] [address] Performed By: #### 1 9123-9, 08751-5 ####[facility] LABIA [id number] [place] [address] [place] Potassium [Moles/Vol] 5.2 mmol/L High 3.7-5.1 [facility] Comment on above: Order Comment: Speci men Type: BLOOD SPECIMENOrdering Facility: [facility] Address: [address] [place] [address] Performed By: #### 1 9123-9, 03888-7 ####[facility] LABIA [id number] [place] [address] [place] Sodium [Moles/Vol] 133 mmol/L Low 136-144 [facility] Comment on above: Order Comment: Speci men Type: BLOOD SPECIMENOrdering Facility: [facility] Address: [address] [place] [id number] Performed By: #### 1 9123-9, 25751-9 ####[facility] LABIA [id number] [place] [id number] [place] Urea nitrogen [Mass/Vol] 52 mg/dL High - [facility] Comment on above: Order Comment: Speci ronna Type: BLOOD SPECIMENOrdering Facility: [facility] Address: [address] [place] [address] Performed By: #### 1 9123-9, 80412-6 ####[facility] LABIA [id number] [place] [address] [place] Tacrolimus Bld-mCncon 2024 Tacrolimus (Bld) [Mass/Vol] 10.6 ng/mL Normal 5.0-20.0 [facility] Comment on above: Order Comment: Víctor friend Type: BLOOD SPECIMENOrdering Facility: [facility] Address: [address] [place] [address] Result Comment: Ema vidualized target levels for a given patient will [...] Test performed by chemiluminescent immunoassay using [employer] Alinity i. Performed By: #### 1 1253-2 ####[facility] [id number] [place] [id number] [place] ALLIED HEALTHon 01-21-2025 ALLIED HEALTH Normal [facility] BRIEF OP NOTon 01-21-2025 BRIEF OP NOT Normal [facility] CASE MANAGEMon 01-21-2025 CASE MANAGEM Normal [facility] CBC panel Auto (Bld)on 01-21 Erythrocyte distribution width (RBC) [Ratio] 14.0 % Normal 11.5-15.0 [facility] Comment on above: Order Comment: Speci men Type: BLOOD SPECIMENOrdering Facility: [facility] Address: [address] [place] [address] Performed By: #### 5 8410-2 ####[facility] LABCLIA [id number] [place] [address] [place] Hematocrit (Bld) [Volume fraction] 24.4 % Low 36.0-46.0 [facility] Comment on above: Order Comment: Speci men Type: BLOOD SPECIMENOrdering Facility: [facility] Address: [address] [place] [address] Performed By: #### 5 8410-2 ####[facility] LABIA [id number] [place] [address] [place] Hemoglobin (Bld) [Mass/Vol] 7.8 g/dL Low 11.5-15.5 [facility] Comment on above: Order Comment: Speci men Type: BLOOD SPECIMENOrdering Facility: [facility] Address: [address] [place] [address] Performed By: #### 5 8410-2 ####[facility] LABIA [id number] [place] [address] [place] MCH (RBC) [Entitic mass] 29.3 pg Normal 26.0-34.0 [facility] Comment on above: Order Comment: Speci men Type: BLOOD SPECIMENOrdering Facility: [facility] Address: [address] [place] [address] Performed By: #### 5 8410-2 ####[facility] LABIA [id number] [place] [address] [place] MCHC (RBC) [Mass/Vol] 32.0 g/dL Normal 30.5-36.0 [facility] Comment on above: Order Comment: Speci men Type: BLOOD SPECIMENOrdering Facility: [facility] Address: [address] [place] [address] Performed By: #### 5 8410-2 ####[facility] LABIA [id number] [place] [address] [place] MCV (RBC) [Entitic vol] 91.7 fL Normal 80.0-100.0 [facility] Comment on above: Order Comment: Speci men Type: BLOOD SPECIMENOrdering Facility: [facility] Address: [address] [place] [address] Performed By: #### 5 8410-2 ####[facility] LABIA [id number] [place] [address] [place] Nucleated RBC (Bld) [#/Vol] 10*3/uL Normal <0.01 [facility] Comment on above: Order Comment: Speci men Type: BLOOD SPECIMENOrdering Facility: [facility] Address: [address] [place] [address] Performed By: #### 5 8410-2 ####[facility] LABIA [id number] [place] [address] [place] Platelet mean volume (Bld) [Entitic vol] 10.1 fL Normal 9.0-12.7 [facility] Comment on above: Order Comment: Speci men Type: BLOOD SPECIMENOrdering Facility: [facility] Address: [address] [place] [address] Performed By: #### 5 8410-2 ####[facility] LABIA [id number] [place] [address] [place] Platelets (Bld) [#/Vol] 253 10*3/uL Normal 150-400 [facility] Comment on above: Order Comment: Speci men Type: BLOOD SPECIMENOrdering Facility: [facility] Address: [address] [place] [address] Performed By: #### 5 8410-2 ####[facility] LABIA [id number] [place] [address] [place] RBC (Bld) [#/Vol] 2.66 10*6/uL Low 3.90-5.20 [place] Comment on above: Order Comment: Speci men Type: BLOOD SPECIMENOrdering Facility: [facility] Address: [address] [place] [address] Performed By: #### 5 8410-2 ####[facility] LABCLIA [id number] [place] [address] [place] WBC (Bld) [#/Vol] 5.52 10*3/uL Normal 3.70-11.00 [place] Comment on above: Order Comment: Speci men Type: BLOOD SPECIMENOrdering Facility: [facility] Address: [address] [place] [address] Performed By: #### 5 8410-2 ####[facility] LABCLIA [id number] [place] [address] [place] FUNDUS PHOTOS OU (BOTH EYES) on 01-21-2025 [facility] IR CVP PLACEMENTon IR CVP PLACEMENT Normal [facility] Magnesium SerPl-mCncon 01-21 Magnesium [Mass/Vol] 1.1 mg/dL Low 1.7-2.3 [facility] Comment on above: Order Comment: Speci men Type: BLOOD SPECIMENOrdering Facility: [facility] Address: [address] [place] [address] Performed By: #### 2 4362-6, 94596-1 ####[facility] LABCLIA [id number] [place] [address] [place] PT EDon 01-21-2025 PT ED Normal [facility] Renal function 2000 panelon 01-21-2025 Albumin [Mass/Vol] 2.7 g/dL Low 3.9-4.9 [facility] Comment on above: Order Comment: Speci men Type: BLOOD SPECIMENOrdering Facility: [facility] Address: [address] [place] [address] Performed By: #### 2 4362-6, ####[facility] LABCLIA [id number] [address] [address] [place] Anion gap [Moles/Vol] 14 mmol/L Normal 8-15 [facility] Comment on above: Order Comment: Speci men Type: BLOOD SPECIMENOrdering Facility: [facility] Address: [address] [place], [place] [address] Performed By: #### 2 436-6, ####[facility] LABCLIA [id number] [place] [id number] [place] Calcium [Mass/Vol] 7.1 mg/dL Low 8.5-10.2 [facility] Comment on above: Order Comment: Speci men Type: BLOOD SPECIMENOrdering Facility: [facility] Address: [address] [place], [place] [address] Performed By: #### 2 43601-07, ####[facility] LABCLIA [id number] [place] [address] [place] Chloride [Moles/Vol] 102 mmol/L Normal 98-107 [facility] Comment on above: Order Comment: Speci men Type: BLOOD SPECIMENOrdering Facility: [facility] Address: [address] [place], [place] [address] Performed By: #### 2 4366, ####[facility] LABCLIA [id number] [place] [address] [place] CO2 [Moles/Vol] 18 mmol/L Low 22-30 [facility] Comment on above: Order Comment: Speci men Type: BLOOD SPECIMENOrdering Facility: [facility] Address: [address] [place], [place] [address] Performed By: #### 2 4362-6, ####[facility] LABCLIA [id number] [place] [id number] [place] Creatinine [Mass/Vol] 2.34 mg/dL High 0.58-0.96 [facility] Comment on above: Order Comment: Víctor friend Type: BLOOD SPECIMENOrdering Facility: [facility] Address: [address] [place] [address] Performed By: #### 2 4362-6, ####[facility] LABIA [id number] [place] [address] [place] Creatinine and Glomerular filtration rate.predicted panel (S/P/Bld) 21 mL/min/1.73m??? Low >=60 [facility] Comment on above: Order Comment: Víctor friend Type: BLOOD SPECIMENOrdering Facility: [facility] Address: [address] [place] [address] Result Comment: Kelsey mated Glomerular Filtration Rate (eGFR) is calculated using the 2020 CKD-EPI creatinine equation. This equation utilizes serum creatinine, sex, and age as parameters. The creatinine assay has traceable calibration to isotope dilution-mass spectrometry. Refer to KDIGO guidelines for clinical interpretation. In patients with unstable renal function, e.g. those with acute kidney injury, the eGFR may not accurately reflect actual GFR. Performed By: #### 2 4362-6, ####[facility] LABIA [id number] [place] [address] [place] Glucose [Mass/Vol] 135 mg/dL High 74-99 [facility] Comment on above: Order Comment: Víctor friend Type: BLOOD SPECIMENOrdering Facility: [facility] Address: [address] [place] [address] Result Comment: The [place] Diabetes Association (ADA) provides guidance for cutoff values for fasting glucose and random glucose. The ADA defines fasting as no caloric intake for at least 8 hours. Fasting plasma glucose results between 100 to 125 mg/dL indicate increased risk for diabetes (prediabetes).Fasting plasma glucose results greater than or equal to 126 mg/dL meet the criteria for diagnosis of diabetes. In the absence of unequivocal hyperglycemia, results should be confirmed by repeat testing. In a patient with classic symptoms of hyperglycemia or hyperglycemic crisis, random plasma glucose results greater than or equal to 200 mg/dL meet the criteria for diagnosis of diabetes.Reference: Standards of Medical Care in Diabetes 2016, [place] [employer]. Diabetes Care. 2016.39(Suppl 1). Performed By: #### 2 436-6, ####[facility] LABCLIA [id number] [address] [address] [place] Phosphate [Mass/Vol] 2.9 mg/dL Normal 2.7-4.8 [facility] Comment on above: Order Comment: Speci men Type: BLOOD SPECIMENOrdering Facility: [facility] Address: [address] [place] [address] Performed By: #### 2 436-, ####[facility] LABCLIA [id number] [place] [address] [place] Potassium [Moles/Vol] 4.9 mmol/L Normal 3.7-5.1 [facility] Comment on above: Order Comment: Speci men Type: BLOOD SPECIMENOrdering Facility: [facility] Address: [address] [place] [address] Performed By: #### 2 43601-07, ####[facility] LABIA [id number] [place] [id number] [place] Sodium [Moles/Vol] 134 mmol/L Low 136-144 [facility] Comment on above: Order Comment: Speci men Type: BLOOD SPECIMENOrdering Facility: [facility] Address: [address] [place] [address] Performed By: #### 2 436-, ####[facility] LABIA [id number] [address] [address] [place] Urea nitrogen [Mass/Vol] 61 mg/dL High 7-21 [facility] Comment on above: Order Comment: Speci men Type: BLOOD SPECIMENOrdering Facility: [facility] Address: [address] [place] [address] Performed By: #### 2 4362-6, 89640-8 ####[facility] [id number] [place] [address] [place] Tacrolimus Bld-mCncon 2024 Tacrolimus (Bld) [Mass/Vol] 17.6 ng/mL Normal 5.0-20.0 [facility] Comment on above: Order Comment: Víctor friend Type: BLOOD SPECIMENOrdering Facility: [facility] Address: [address] [place] [address] Result Comment: Ema vidualized target levels for a given patient will [...] situation. Test performed by chemiluminescent immunoassay using [employer] Alinity i. Performed By: #### 1 1253-2 ####[facility] LABIA [id number] [place] [address] [place] C diff Tox gens Stl Ql ULICES+p robeon 01-20-2025 C. difficile toxin genes ULICES+probe Ql (Stl) Positive Abnormal Negative for C. difficile toxin by PCR [facility] Comment on above: Order Comment: Víctor friend Type: STOOL SPECIMENOrdering Facility: [facility] Address: [address] [place] [address] Result Comment: A po sitive PCR result may indicate C.difficile infection or colonization. The positive predictive value of this test for C.difficile infection is highest for patients with clinically significant diarrhea (>=3 unformed stools in 24h) who do not have an alternative explanation (e.g., recent receipt of laxatives).Toxin EIA testing will also be performed as recommended by IDSA clinical practice guidelines for institutions without pre-agreed criteria for specimen submission. Performed By: #### 5 4067-4, CDEIA ####[facility] LABIA [id number] [place] [address] [place] CBC panel Auto (Bld)on 01-20 Erythrocyte distribution width (RBC) [Ratio] 14.1 % Normal 11.5-15.0 [facility] Comment on above: Order Comment: Speci men Type: BLOOD SPECIMENOrdering Facility: [facility] Address: [address] [place] [address] Performed By: #### 5 8410-2 ####[facility] LABIA [id number] [place] [address] [place] Hematocrit (Bld) [Volume fraction] 24.9 % Low 36.0-46.0 [facility] Comment on above: Order Comment: Speci men Type: BLOOD SPECIMENOrdering Facility: [facility] Address: [address] [place] [address] Performed By: #### 5 8410-2 ####[facility] LABIA [id number] [place] [address] [place] Hemoglobin (Bld) [Mass/Vol] 7.8 g/dL Low 11.5-15.5 [facility] Comment on above: Order Comment: Speci men Type: BLOOD SPECIMENOrdering Facility: [facility] Address: [address] [place] [address] Performed By: #### 5 8410-2 ####[facility] LABIA [id number] [place] [address] [place] MCH (RBC) [Entitic mass] 29.7 pg Normal 26.0-34.0 [facility] Comment on above: Order Comment: Speci men Type: BLOOD SPECIMENOrdering Facility: [facility] Address: [address] [place] [address] Performed By: #### 5 8410-2 ####[facility] LABIA [id number] [place] [address] [place] MCHC (RBC) [Mass/Vol] 31.3 g/dL Normal 30.5-36.0 [facility] Comment on above: Order Comment: Speci men Type: BLOOD SPECIMENOrdering Facility: [facility] Address: [address] [place] [address] Performed By: #### 5 8410-2 ####[facility] LABCLIA [id number] [place] [address] [place] MCV (RBC) [Entitic vol] 94.7 fL Normal 80.0-100.0 [facility] Comment on above: Order Comment: Speci men Type: BLOOD SPECIMENOrdering Facility: [facility] Address: [address] [place] [address] Performed By: #### 5 8410-2 ####[facility] LABCLIA [id number] [place] [address] [place] Nucleated RBC (Bld) [#/Vol] 10*3/uL Normal <0.01 [facility] Comment on above: Order Comment: Speci men Type: BLOOD SPECIMENOrdering Facility: [facility] Address: [address] [place] [address] Performed By: #### 5 8410-2 ####[facility] LABCLIA [id number] [place] [address] [place] Platelet mean volume (Bld) [Entitic vol] 10.3 fL Normal 9.0-12.7 [facility] Comment on above: Order Comment: Speci men Type: BLOOD SPECIMENOrdering Facility: [facility] Address: [address] [place] [address] Performed By: #### 5 8410-2 ####[facility] LABCLIA [id number] [place] [address] [place] Platelets (Bld) [#/Vol] 202 10*3/uL Normal 150-400 [facility] Comment on above: Order Comment: Speci men Type: BLOOD SPECIMENOrdering Facility: [facility] Address: [address] [place] [address] Performed By: #### 5 8410-2 ####[facility] LABIA [id number] [place] [address] [place] RBC (Bld) [#/Vol] 2.63 10*6/uL Low 3.90-5.20 [place] Comment on above: Order Comment: Speci men Type: BLOOD SPECIMENOrdering Facility: [facility] Address: [address] [place] [address] Performed By: #### 5 8410-2 ####[facility] [id number] [place] [address] [place] WBC (Bld) [#/Vol] 5.11 10*3/uL Normal 3.70-11.00 [place] Comment on above: Order Comment: Speci men Type: BLOOD SPECIMENOrdering Facility: [facility] Address: [address] [place] [address] Performed By: #### 5 8410-2 ####[facility] [id number] [place] [address] [place] CLOSTRIDIUM DIFFICILE TOXIN BY EIAon 01-20-2025 C. difficile toxin A+B IA Ql (Stl) Not detected Normal Negative for C. difficile toxin [facility] Comment on above: Order Comment: Speci men Type: STOOL SPECIMENOrdering Facility: [facility] Address: [address] [place] [address] Result Comment: Toxi n EIA is less sensitive than cell cytotoxin and PCR assays. Clinical correlation of PCR positive/toxin EIA negative results is required to distinguish C. difficle colonization from disease. Performed By: #### 5 4067-4, CDEIA ####[facility] LABCLIA [id number] [place] [address] [place] FUNDUS PHOTOS OU (BOTH EYES) on 01-20-2025 Radiology Study observation (narrative) [facility] Gastrointestinal pathogens p shaina ULICES+probe (Stl)on 01-20-2025 ADENOVIRUS F 40/41 DNA Not detected Normal Not Detected [facility] Comment on above: Order Comment: Speci men Type: STOOL SPECIMENOrdering Facility: [facility] Address: [address] [place] [address] Performed By: #### 7 9381-0 ####[facility] LABCLIA [id number] [place] [address] [place] ASTROVIRUS RNA Not detected Normal Not Detected [facility] Comment on above: Order Comment: Speci men Type: STOOL SPECIMENOrdering Facility: [facility] Address: [address] [place] [address] Performed By: #### 7 9381-0 ####[facility] LABCLIA [id number] [place] [address] [place] C. cayetanensis DNA ULICES+probe Ql (Unsp spec) Not detected Normal Not Detected [facility] Comment on above: Order Comment: Speci men Type: STOOL SPECIMENOrdering Facility: [facility] Address: [address] [place] [address] Performed By: #### 7 9381-0 ####[facility] LABCLIA [id number] [place] [address] [place] Campylobacter sp DNA.diarrheagenic ULICES+probe Ql (Stl) Not detected Normal Not Detected [facility] Comment on above: Order Comment: Speci men Type: STOOL SPECIMENOrdering Facility: [facility] Address: [address] [place] [address] Performed By: #### 7 9381-0 ####[facility] LABCLIA [id number] [place] [address] [place] Cryptosporidium sp DNA ULICES+probe Ql (Unsp spec) Not detected Normal Not Detected [facility] Comment on above: Order Comment: Speci men Type: STOOL SPECIMENOrdering Facility: [facility] Address: [address] [place] [address] Performed By: #### 7 9381-0 ####[facility] LABCLIA [id number] [place] [address] [place] E. coli O157:H7 DNA ULICES+probe Ql (Unsp spec) Not applicable Normal Not detected [facility] Comment on above: Order Comment: Speci men Type: STOOL SPECIMENOrdering Facility: [facility] Address: [address] [place] [address] Performed By: #### 7 9381-0 ####[facility] LABCLIA [id number] [place] [address] [place] E. coli stx1+stx2 genes ULICES+probe Ql (Stl) Not detected Normal Not Detected [facility] Comment on above: Order Comment: Speci men Type: STOOL SPECIMENOrdering Facility: [facility] Address: [address] [place] [address] Performed By: #### 7 9381-0 ####[facility] LABCLIA [id number] [place] [address] [place] E. histolytica DNA ULICES+probe Ql (Unsp spec) Not detected Normal Not Detected [facility] Comment on above: Order Comment: Speci men Type: STOOL SPECIMENOrdering Facility: [facility] Address: [address] [place] [address] Performed By: #### 7 9381-0 ####[facility] LABCLIA [id number] [place] [address] [place] ENTEROAGGREGATIVE E. COLI (EAEC) DNA Not detected Normal Not Detected [facility] Comment on above: Order Comment: Speci men Type: STOOL SPECIMENOrdering Facility: [facility] Address: [address] [place] [address] Performed By: #### 7 9381-0 ####[facility] LABCLIA [id number] [place] [address] [place] ENTEROPATHOGENIC E. COLI (EPEC) DNA Not detected Normal Not detected [facility] Comment on above: Order Comment: Speci men Type: STOOL SPECIMENOrdering Facility: [facility] Address: [address] [place] [address] Performed By: #### 7 9381-0 ####[facility] LABCLIA [id number] [place] [address] [place] ENTEROTOXIGENIC E. COLI (ETEC) DNA Not detected Normal Not Detected [facility] Comment on above: Order Comment: Speci men Type: STOOL SPECIMENOrdering Facility: [facility] Address: [address] [place] [address] Performed By: #### 7 9381-0 ####[facility] LABCLIA [id number] [place] [address] [place] G. lamblia DNA ULICES+probe Ql (Unsp spec) Not detected Normal Not Detected [facility] Comment on above: Order Comment: Speci men Type: STOOL SPECIMENOrdering Facility: [facility] Address: [address] [place] [address] Performed By: #### 7 9381-0 ####[facility] LABCLIA [id number] [place] [address] [place] NOROVIRUS GI/GII RNA Detected Abnormal Not Detected [facility] Comment on above: Order Comment: Speci men Type: STOOL SPECIMENOrdering Facility: [facility] Address: [address] [place] [address] Performed By: #### 7 9381-0 ####[facility] LABCLIA [id number] [place] [address] [place] PLESIOMONAS SHIGELLOIDES DNA Not detected Normal Not Detected [facility] Comment on above: Order Comment: Speci men Type: STOOL SPECIMENOrdering Facility: [facility] Address: [address] [place] [address] Performed By: #### 7 9381-0 ####[facility] LABCLIA [id number] [place] [address] [place] ROTAVIRUS A RNA Not detected Normal Not Detected [facility] Comment on above: Order Comment: Speci men Type: STOOL SPECIMENOrdering Facility: [facility] Address: [address] [place] [address] Performed By: #### 7 9381-0 ####[facility] LABCLIA [id number] [place] [address] [place] Salmonella sp DNA ULICES+probe Ql (Unsp spec) Not detected Normal Not Detected [facility] Comment on above: Order Comment: Speci men Type: STOOL SPECIMENOrdering Facility: [facility] Address: [address] [place] [address] Performed By: #### 7 9381-0 ####[facility] LABCLIA [id number] [place] [address] [place] SAPOVIRUS (GENOGROUPS I, II, IV, V) RNA Not detected Normal Not Detected [facility] Comment on above: Order Comment: Speci men Type: STOOL SPECIMENOrdering Facility: [facility] Address: [address] [place] [address] Performed By: #### 7 9381-0 ####[facility] LABCLIA [id number] [place] [address] [place] Shigella species+EIEC invasion plasmid antigen H ipaH gene ULICES+probe Ql (Stl) Not detected Normal Not Detected [facility] Comment on above: Order Comment: Speci men Type: STOOL SPECIMENOrdering Facility: [facility] Address: [address] [place] [address] Performed By: #### 7 9381-0 ####[facility] LABCLIA [id number] [place] [address] [place] V. cholerae DNA ULICES+probe Ql (Unsp spec) Not detected Normal Not Detected [facility] Comment on above: Order Comment: Speci men Type: STOOL SPECIMENOrdering Facility: [facility] Address: [address] [place] [address] Performed By: #### 7 9381-0 ####[facility] LABIA [id number] [place] [address] [place] Vibrio sp DNA ULICES+probe Nom (Unsp spec) Not detected Normal Not Detected [facility] Comment on above: Order Comment: Speci men Type: STOOL SPECIMENOrdering Facility: [facility] Address: [address] [place] [address] Performed By: #### 7 9381-0 ####[facility] LABIA [id number] [place] [address] [place] Yersinia sp DNA ULICES+probe Nom (Unsp spec) Not detected Normal Not Detected [facility] Comment on above: Order Comment: Speci men Type: STOOL SPECIMENOrdering Facility: [facility] Address: [address] [place] [address] Performed By: #### 7 9381-0 ####[facility] [id number] [place] [address] [place] Magnesium SerPl-mCncon 01-20 Magnesium [Mass/Vol] 1.2 mg/dL Low 1.7-2.3 [facility] Comment on above: Order Comment: Speci men Type: BLOOD SPECIMENOrdering Facility: [facility] Address: [address] [place] [address] Performed By: #### 2 4362-6, 47997-0 ####[facility] LABIA [id number] [place] [address] [place] NUTRITIONon 01-20-2025 NUTRITION Normal [facility] OCT MACULA CIRRUS OU (BOTH E YES)on 01-20-2025 [facility] Radiology Study observation (narrative) [facility] PT EDon 01-20-2025 PT ED Normal [facility] Renal function 2000 panelon 01-20-2025 Albumin [Mass/Vol] 2.6 g/dL Low 3.9-4.9 [facility] Comment on above: Order Comment: Speci men Type: BLOOD SPECIMENOrdering Facility: [facility] Address: [address] [place] [address] Performed By: #### 2 4362-6, ####[facility] LABCLIA [id number] [place] [address] [place] Anion gap [Moles/Vol] 14 mmol/L Normal 8-15 [facility] Comment on above: Order Comment: Speci men Type: BLOOD SPECIMENOrdering Facility: [facility] Address: [address] [place] [address] Performed By: #### 2 4362-6, ####[facility] LABCLIA [id number] [place] [address] [place] Calcium [Mass/Vol] 7.2 mg/dL Low 8.5-10.2 [facility] Comment on above: Order Comment: Speci men Type: BLOOD SPECIMENOrdering Facility: [facility] Address: [address] [place] [address] Performed By: #### 2 4362-6, ####[facility] LABCLIA [id number] [place] [address] [place] Chloride [Moles/Vol] 101 mmol/L Normal 98-107 [facility] Comment on above: Order Comment: Speci men Type: BLOOD SPECIMENOrdering Facility: [facility] Address: [address] [place] [address] Performed By: #### 2 4362-6, ####[facility] LABCLIA [id number] [facility] [place] [id number] [place] CO2 [Moles/Vol] 17 mmol/L Low 22-30 [facility] Comment on above: Order Comment: Speci men Type: BLOOD SPECIMENOrdering Facility: [facility] Address: [address] [place] [address] Performed By: #### 2 4362-6, ####[facility] LABCLIA [id number] [address] [address] [place] Creatinine [Mass/Vol] 2.23 mg/dL High 0.58-0.96 [facility] Comment on above: Order Comment: Speci men Type: BLOOD SPECIMENOrdering Facility: [facility] Address: [address] [place] [address] Performed By: #### 2 4362-6, ####[facility] LABIA [id number] [place] [address] [place] Creatinine and Glomerular filtration rate.predicted panel (S/P/Bld) 22 mL/min/1.73m??? Low >=60 [facility] Comment on above: Order Comment: Verenai men Type: BLOOD SPECIMENOrdering Facility: [facility] Address: [address] [place] [address] Result Comment: Kelsey mated Glomerular Filtration Rate (eGFR) is calculated using the 2020 CKD-EPI creatinine equation. This equation utilizes serum creatinine, sex, and age as parameters. The creatinine assay has traceable calibration to isotope dilution-mass spectrometry. Refer to KDIGO guidelines for clinical interpretation. In patients with unstable renal function, e.g. those with acute kidney injury, the eGFR may not accurately reflect actual GFR. Performed By: #### 2 4362-6, ####[facility] LABIA [id number] [place] [address] [place] Glucose [Mass/Vol] 206 mg/dL High 74-99 [facility] Comment on above: Order Comment: Speci men Type: BLOOD SPECIMENOrdering Facility: [facility] Address: [address] [place] [address] Result Comment: The [place] [employer] (ADA) provides guidance for cutoff values for fasting glucose and random glucose. The ADA defines fasting as no caloric intake for at least 8 hours. Fasting plasma glucose results between 100 to 125 mg/dL indicate increased risk for diabetes (prediabetes).Fasting plasma glucose results greater than or equal to 126 mg/dL meet the criteria for diagnosis of diabetes. In the absence of unequivocal hyperglycemia, results should be confirmed by repeat testing. In a patient with classic symptoms of hyperglycemia or hyperglycemic crisis, random plasma glucose results greater than or equal to 200 mg/dL meet the criteria for diagnosis of diabetes.Reference: Standards of Medical Care in Diabetes 2016, [place] [employer]. Diabetes Care. 2016.39(Suppl 1). Performed By: #### 2 4362-6, ####[facility] LABCLIA [id number] [place] [address] [place] Phosphate [Mass/Vol] 2.6 mg/dL Low 2.7-4.8 [facility] Comment on above: Order Comment: Speci men Type: BLOOD SPECIMENOrdering Facility: [facility] Address: [address] [place] [address] Performed By: #### 2 4362-6, ####[facility] LABCLIA [id number] [place] [address] [place] Potassium [Moles/Vol] 4.9 mmol/L Normal 3.7-5.1 [facility] Comment on above: Order Comment: Speci men Type: BLOOD SPECIMENOrdering Facility: [facility] Address: [address] [place], [place] [address] Performed By: #### 2 4366, ####[facility] LABIA [id number] [place] [id number] [place] Sodium [Moles/Vol] 132 mmol/L Low 136-144 [facility] Comment on above: Order Comment: Speci men Type: BLOOD SPECIMENOrdering Facility: [facility] Address: [address] [place] [address] Performed By: #### 2 43601-07, ####[facility] LABCLIA [id number] [place] [id number] [place] Urea nitrogen [Mass/Vol] 55 mg/dL High 7-21 [facility] Comment on above: Order Comment: Speci men Type: BLOOD SPECIMENOrdering Facility: [facility] Address: [address] [place] [address] Performed By: #### 2 4362-6, 51805-4 ####[facility] LABCLIA [id number] [place] [id number] [place] Tacrolimus Bld-mCncon 2024 Tacrolimus (Bld) [Mass/Vol] 21.0 ng/mL High 5.0-20.0 [facility] Comment on above: Order Comment: Speci ronna Type: BLOOD SPECIMENOrdering Facility: [facility] Address: [address] [place] [address] Result Comment: Ema vidualized target levels for a given patient will [...] Test performed by chemiluminescent immunoassay using [employer] i. Performed By: #### 1 1253-2 ####[facility] LABIA [id number] [place] [id number] [place] ALLIED HEALTHon 01-19-2025 ALLIED HEALTH Normal [facility] CBC panel Auto (Bld)on 01-19 Erythrocyte distribution width (RBC) [Ratio] 14.1 % Normal 11.5-15.0 [facility] Comment on above: Order Comment: Speci men Type: BLOOD SPECIMENOrdering Facility: [facility] Address: [address] [place] [address] Performed By: #### 5 8410-2 ####[facility] LABCLIA [id number] [place] [address] [place] Hematocrit (Bld) [Volume fraction] 23.8 % Low 36.0-46.0 [facility] Comment on above: Order Comment: Speci men Type: BLOOD SPECIMENOrdering Facility: [facility] Address: [address] [place] [address] Performed By: #### 5 8410-2 ####[facility] LABIA [id number] [place] [address] [place] Hemoglobin (Bld) [Mass/Vol] 7.6 g/dL Low 11.5-15.5 [facility] Comment on above: Order Comment: Speci men Type: BLOOD SPECIMENOrdering Facility: [facility] Address: [address] [place] [address] Performed By: #### 5 8410-2 ####[facility] LABIA [id number] [place] [address] [place] MCH (RBC) [Entitic mass] 29.9 pg Normal 26.0-34.0 [facility] Comment on above: Order Comment: Speci men Type: BLOOD SPECIMENOrdering Facility: [facility] Address: [address] [place] [address] Performed By: #### 5 8410-2 ####[facility] LABIA [id number] [place] [address] [place] MCHC (RBC) [Mass/Vol] 31.9 g/dL Normal 30.5-36.0 [facility] Comment on above: Order Comment: Speci men Type: BLOOD SPECIMENOrdering Facility: [facility] Address: [address] [place] [address] Performed By: #### 5 8410-2 ####[facility] LABIA [id number] [place] [address] [place] MCV (RBC) [Entitic vol] 93.7 fL Normal 80.0-100.0 [facility] Comment on above: Order Comment: Speci men Type: BLOOD SPECIMENOrdering Facility: [facility] Address: [address] [place] [address] Performed By: #### 5 8410-2 ####[facility] LABCLIA [id number] [place] [address] [place] Nucleated RBC (Bld) [#/Vol] 10*3/uL Normal <0.01 [facility] Comment on above: Order Comment: Speci men Type: BLOOD SPECIMENOrdering Facility: [facility] Address: [address] [place] [address] Performed By: #### 5 8410-2 ####[facility] LABIA [id number] [place] [address] [place] Platelet mean volume (Bld) [Entitic vol] 10.4 fL Normal 9.0-12.7 [facility] Comment on above: Order Comment: Speci men Type: BLOOD SPECIMENOrdering Facility: [facility] Address: [address] [place] [address] Performed By: #### 5 8410-2 ####[facility] LABIA [id number] [place] [address] [place] Platelets (Bld) [#/Vol] 161 10*3/uL Normal 150-400 [facility] Comment on above: Order Comment: Speci men Type: BLOOD SPECIMENOrdering Facility: [facility] Address: [address] [place] [address] Performed By: #### 5 8410-2 ####[facility] LABIA [id number] [place] [address] [place] RBC (Bld) [#/Vol] 2.54 10*6/uL Low 3.90-5.20 [place] Comment on above: Order Comment: Speci men Type: BLOOD SPECIMENOrdering Facility: [facility] Address: [address] [place] [address] Performed By: #### 5 8410-2 ####[facility] LABCLIA [id number] [place] [address] [place] WBC (Bld) [#/Vol] 5.83 10*3/uL Normal 3.70-11.00 [place] Comment on above: Order Comment: Víctor friend Type: BLOOD SPECIMENOrdering Facility: [facility] Address: [address] [place] [address] Performed By: #### 5 8410-2 ####[facility] LABCLIA [id number] [place] [address] [place] CONSULT PROGon 01-19-2025 CONSULT PROG Normal [facility] Magnesium SerPl-mCncon 01-19 Magnesium [Mass/Vol] 1.3 mg/dL Low 1.7-2.3 [facility] Comment on above: Order Comment: Víctor friend Type: BLOOD SPECIMENOrdering Facility: [facility] Address: [address] [place] [address] Performed By: #### 1 9123-9, 01555-2 ####[facility] LABIA [id number] [place] [address] [place] PT panel Coag (PPP)on 2024 INR Coag (PPP) [Relative time] 1.2 {INR} Normal 0.9-1.3 [facility] Comment on above: Order Comment: Víctor friend Type: BLOOD SPECIMENOrdering Facility: [facility] Address: [address] [place] [address] Result Comment: Zulay min K Antagonist (VKA) Therapeutic Range: INR 2 to 3 (Target INR of 2.5)Note: For patients treated with VKA drugs, such as warfarin, the [place] [employer] 2012 Guideline recommends a therapeutic INR range of 2 to 3 (target INR of 2.5). This recommendation includes high-risk patients with antiphospholipid syndrome with previous arterial or venous thromboembolism, current-generation mechanical or bioprosthetic aortic heart valve replacement.Note: Patients with mechanical aortic valve replacement and additional risk factors for thromboembolic events (atrial fibrillation, previous thromboembolism, LV dysfunction, hypercoagulable conditions) or an older generation mechanical AVR (i.e., ball in-Cage) or any mechanical MVR should have a INR therapeutic range of 2.5 to 3.5 (target INR of 3).Laura GH, et al. Chest 2012, 141:7S-47SNishimura RA, et al. [facility] 2017, 70: 252-289 Performed By: #### 3 4528-0 ####[facility] LABCLIA [id number] [place] [address] [place] PT Coag (PPP) [Time] 13.0 s Normal 9.7-13.0 [facility] Comment on above: Order Comment: Speci men Type: BLOOD SPECIMENOrdering Facility: [facility] Address: [address] [place] [address] Performed By: #### 3 4528-0 ####[facility] LABIA [id number] [place] [address] [place] Renal function 2000 panelon 01-19-2025 Albumin [Mass/Vol] 2.5 g/dL Low 3.9-4.9 [facility] Comment on above: Order Comment: Speci men Type: BLOOD SPECIMENOrdering Facility: [facility] Address: [address] [place] [address] Performed By: #### 1 9123-9, 78230-2 ####[facility] LABIA [id number] [place] [address] [place] Anion gap [Moles/Vol] 11 mmol/L Normal 8-15 [facility] Comment on above: Order Comment: Speci men Type: BLOOD SPECIMENOrdering Facility: [facility] Address: [address] [place] [address] Performed By: #### 1 9123-9, 70026-5 ####[facility] LABIA [id number] [place] [address] [place] Calcium [Mass/Vol] 6.9 mg/dL Low 8.5-10.2 [facility] Comment on above: Order Comment: Speci men Type: BLOOD SPECIMENOrdering Facility: [facility] Address: [address] [place] [address] Performed By: #### 1 9123-9, 63868-7 ####[facility] LABCLIA [id number] [place] [address] [place] Chloride [Moles/Vol] 102 mmol/L Normal 98-107 [facility] Comment on above: Order Comment: Speci men Type: BLOOD SPECIMENOrdering Facility: [facility] Address: [address] [place] [address] Performed By: #### 1 9123-9, 80511-6 ####[facility] LABCLIA [id number] [place] [address] [place] CO2 [Moles/Vol] 19 mmol/L Low 22-30 [facility] Comment on above: Order Comment: Speci men Type: BLOOD SPECIMENOrdering Facility: [facility] Address: [address] [place] [address] Performed By: #### 1 9123-9, 98338-2 ####[facility] LABCLIA [id number] [place] [address] [place] Creatinine [Mass/Vol] 2.30 mg/dL High 0.58-0.96 [facility] Comment on above: Order Comment: Speci men Type: BLOOD SPECIMENOrdering Facility: [facility] Address: [address] [place] [address] Performed By: #### 1 9123-9, 30684-9 ####[facility] LABCLIA [id number] [place] [address] [place] Creatinine and Glomerular filtration rate.predicted panel (S/P/Bld) 21 mL/min/1.73m??? Low >=60 [facility] Comment on above: Order Comment: Víctor friend Type: BLOOD SPECIMENOrdering Facility: [facility] Address: [address] [place] [address] Result Comment: Kelsey mated Glomerular Filtration Rate (eGFR) is calculated using the 2020 CKD-EPI creatinine equation. This equation utilizes serum creatinine, sex, and age as parameters. The creatinine assay has traceable calibration to isotope dilution-mass spectrometry. Refer to KDIGO guidelines for clinical interpretation. In patients with unstable renal function, e.g. those with acute kidney injury, the eGFR may not accurately reflect actual GFR. Performed By: #### 1 9123-9, 75098-1 ####[facility] LABCLIA [id number] [place] [address] [place] Glucose [Mass/Vol] 150 mg/dL High 74-99 [facility] Comment on above: Order Comment: Víctor friend Type: BLOOD SPECIMENOrdering Facility: [facility] Address: [address] [place] [address] Result Comment: The [place] [employer] (ADA) provides guidance for cutoff values for fasting glucose and random glucose. The ADA defines fasting as no caloric intake for at least 8 hours. Fasting plasma glucose results between 100 to 125 mg/dL indicate increased risk for diabetes (prediabetes).Fasting plasma glucose results greater than or equal to 126 mg/dL meet the criteria for diagnosis of diabetes. In the absence of unequivocal hyperglycemia, results should be confirmed by repeat testing. In a patient with classic symptoms of hyperglycemia or hyperglycemic crisis, random plasma glucose results greater than or equal to 200 mg/dL meet the criteria for diagnosis of diabetes.Reference: Standards of Medical Care in Diabetes 2016, [place] [employer]. Diabetes Care. 2016.39(Suppl 1). Performed By: #### 1 9123-9, 83754-7 ####[facility] LABCLIA [id number] [place] [address] [place] Phosphate [Mass/Vol] 3.2 mg/dL Normal 2.7-4.8 [facility] Comment on above: Order Comment: Speci men Type: BLOOD SPECIMENOrdering Facility: [facility] Address: [address] [place] [address] Performed By: #### 1 9123-9, 77647-8 ####[facility] LABCLIA [id number] [place] [address] [place] Potassium [Moles/Vol] 4.7 mmol/L Normal 3.7-5.1 [facility] Comment on above: Order Comment: Speci men Type: BLOOD SPECIMENOrdering Facility: [facility] Address: [address] [place] [address] Performed By: #### 1 9123-9, 56074-6 ####[facility] LABIA [id number] [place] [address] [place] Sodium [Moles/Vol] 132 mmol/L Low 136-144 [facility] Comment on above: Order Comment: Speci men Type: BLOOD SPECIMENOrdering Facility: [facility] Address: [address] [place] [address] Performed By: #### 1 9123-9, 53975-3 ####[facility] LABIA [id number] [place] [address] [place] Urea nitrogen [Mass/Vol] 56 mg/dL High 7-21 [facility] Comment on above: Order Comment: Speci men Type: BLOOD SPECIMENOrdering Facility: [facility] Address: [address] [place] [address] Performed By: #### 1 9123-9, 64505-0 ####[facility] LABIA [id number] [place] [address] [place] Tacrolimus Bld-mCncon 2024 Tacrolimus (Bld) [Mass/Vol] 12.0 ng/mL Normal 5.0-20.0 [facility] Comment on above: Order Comment: Speci men Type: BLOOD SPECIMENOrdering Facility: [facility] Address: [address] [place] [address] Result Comment: Ema vidualized target levels for a given patient will [...] situation. Test performed by chemiluminescent immunoassay using [employer] (WPP) i. Performed By: #### 1 1253-2 ####[facility] LABIA [id number] [address] [facility] CASE MANAGEMon 01-18-2025 CASE MANAGEM Normal [facility] CASE MANAGEM Normal [facility] CBC panel Auto (Bld)on 01-18 Erythrocyte distribution width (RBC) [Ratio] 14.3 % Normal 11.5-15.0 [facility] Comment on above: Order Comment: Speci men Type: BLOOD SPECIMENOrdering Facility: [facility] Address: [address] [place] [address] Performed By: #### 5 8410-2 ####[facility] LABIA [id number] [place] [address] [place] Hematocrit (Bld) [Volume fraction] 23.7 % Low 36.0-46.0 [facility] Comment on above: Order Comment: Speci men Type: BLOOD SPECIMENOrdering Facility: [facility] Address: [address] [place] [address] Performed By: #### 5 8410-2 ####[facility] LABIA [id number] [place] [address] [place] Hemoglobin (Bld) [Mass/Vol] 7.6 g/dL Low 11.5-15.5 [facility] Comment on above: Order Comment: Speci men Type: BLOOD SPECIMENOrdering Facility: [facility] Address: [address] [place] [address] Performed By: #### 5 8410-2 ####[facility] LABIA [id number] [place] [address] [place] MCH (RBC) [Entitic mass] 29.6 pg Normal 26.0-34.0 [facility] Comment on above: Order Comment: Speci men Type: BLOOD SPECIMENOrdering Facility: [facility] Address: [address] [place] [address] Performed By: #### 5 8410-2 ####[facility] [id number] [place] [address] [place] MCHC (RBC) [Mass/Vol] 32.1 g/dL Normal 30.5-36.0 [facility] Comment on above: Order Comment: Speci men Type: BLOOD SPECIMENOrdering Facility: [facility] Address: [address] [place] [address] Performed By: #### 5 8410-2 ####[facility] [id number] [place] [address] [place] MCV (RBC) [Entitic vol] 92.2 fL Normal 80.0-100.0 [facility] Comment on above: Order Comment: Speci men Type: BLOOD SPECIMENOrdering Facility: [facility] Address: [address] [place] [address] Performed By: #### 5 8410-2 ####[facility] [id number] [place] [address] [place] Nucleated RBC (Bld) [#/Vol] 10*3/uL Normal <0.01 [facility] Comment on above: Order Comment: Speci men Type: BLOOD SPECIMENOrdering Facility: [facility] Address: [address] [place] [address] Performed By: #### 5 8410-2 ####[facility] [id number] [place] [address] [place] Platelet mean volume (Bld) [Entitic vol] 10.6 fL Normal 9.0-12.7 [facility] Comment on above: Order Comment: Speci men Type: BLOOD SPECIMENOrdering Facility: [facility] Address: [address] [place] [address] Performed By: #### 5 8410-2 ####[facility] LABCLIA [id number] [place] [address] [place] Platelets (Bld) [#/Vol] 132 10*3/uL Low 150-400 [facility] Comment on above: Order Comment: Speci men Type: BLOOD SPECIMENOrdering Facility: [facility] Address: [address] [place] [address] Performed By: #### 5 8410-2 ####[facility] LABCLIA [id number] [place] [address] [place] RBC (Bld) [#/Vol] 2.57 10*6/uL Low 3.90-5.20 [place] Comment on above: Order Comment: Speci men Type: BLOOD SPECIMENOrdering Facility: [facility] Address: [address] [place] [address] Performed By: #### 5 8410-2 ####[facility] LABCLIA [id number] [place] [address] [place] WBC (Bld) [#/Vol] 7.29 10*3/uL Normal 3.70-11.00 [place] Comment on above: Order Comment: Speci men Type: BLOOD SPECIMENOrdering Facility: [facility] Address: [address] [place] [address] Performed By: #### 5 8410-2 ####[facility] LABCLIA [id number] [place] [address] [place] CNPNon 01-18-2025 CNPN Normal [facility] CONSULT PROGon 01-18-2025 CONSULT PROG Normal [facility] CYTOMEGALOVIRUS (CMV) DNA, Q UANTITATIVE PCR, PLASMAon 01-18-2025 CMV DNA ULICES+probe [#/Vol] 159 IU/mL High [facility] Comment on above: Order Comment: Speci men Type: BLOOD SPECIMENOrdering Facility: [facility] Address: [address] [place] [address] Performed By: #### C MVQNT ####[facility] LABCLIA [id number] [place] [address] [place] CMV DNA ULICES+probe [Log #/Vol] 2.20 log IU/mL High [facility] Comment on above: Order Comment: Speci men Type: BLOOD SPECIMENOrdering Facility: [facility] Address: [address] [place] [address] Performed By: #### C MVQNT ####[facility] LABCLIA [id number] [place] [address] [place] CMV DNA ULICES+probe Qn (P) Detected Abnormal Not Detected [facility] Comment on above: Order Comment: Speci men Type: BLOOD SPECIMENOrdering Facility: [facility] Address: [address] [place] [address] Performed By: #### C MVQNT ####[facility] LABCLIA [id number] [place] [address] [place] Magnesium SerPl-mCncon 01-18 Magnesium [Mass/Vol] 1.6 mg/dL Low 1.7-2.3 [facility] Comment on above: Order Comment: Speci men Type: BLOOD SPECIMENOrdering Facility: [facility] Address: [address] [place] [address] Performed By: #### 1 9123-9, 20841-2 ####[facility] LABCLIA [id number] [place] [address] [place] NURSING PROGon 01-18-2025 NURSING PROG Normal [facility] Osmolality Uron 01-18-2025 Osmolality (U) [Osmolality] 300 mosm/kg Normal 50-1200 [facility] Comment on above: Order Comment: Speci men Type: URINE SPECIMENOrdering Facility: [facility] Address: [address] [place] [address] Performed By: #### 2 695-5 ####[facility] LABCLIA [id number] [place] [address] [place] PT panel Coag (PPP)on 2024 INR Coag (PPP) [Relative time] 1.2 {INR} Normal 0.9-1.3 [facility] Comment on above: Order Comment: Speci men Type: BLOOD SPECIMENOrdering Facility: [facility] Address: [address] [place] [address] Result Comment: Zulay min K Antagonist (VKA) Therapeutic Range: INR 2 to 3 (Target INR of 2.5)Note: For patients treated with VKA drugs, such as warfarin, the [place] [employer] 2012 Guideline recommends a therapeutic INR range of 2 to 3 (target INR of 2.5). This recommendation includes high-risk patients with antiphospholipid syndrome with previous arterial or venous thromboembolism, current-generation mechanical or bioprosthetic aortic heart valve replacement.Note: Patients with mechanical aortic valve replacement and additional risk factors for thromboembolic events (atrial fibrillation, previous thromboembolism, LV dysfunction, hypercoagulable conditions) or an older generation mechanical AVR (i.e., ball in-Cage) or any mechanical MVR should have a INR therapeutic range of 2.5 to 3.5 (target INR of 3).Laura GH, et al. Chest 2012, 141:7S-47SNishimura RA, et al. [facility] 2017, 70: 252-289 Performed By: #### 3 4528-0 ####[facility] [id number] [place] [id number] [place] PT Coag (PPP) [Time] 12.6 s Normal 9.7-13.0 [facility] Comment on above: Order Comment: Speci men Type: BLOOD SPECIMENOrdering Facility: [facility] Address: [address] [place] [address] Performed By: #### 3 4528-0 ####[facility] LABCLIA [id number] [place] [id number] [place] Renal function 2000 panelon 01-18-2025 Albumin [Mass/Vol] 2.9 g/dL Low 3.9-4.9 [facility] Comment on above: Order Comment: Speci men Type: BLOOD SPECIMENOrdering Facility: [facility] Address: [address] [place] [address] Performed By: #### 1 9123-9, 09336-9 ####[facility] LABCLIA [id number] [place] [address] [place] Anion gap [Moles/Vol] 13 mmol/L Normal 8-15 [facility] Comment on above: Order Comment: Speci men Type: BLOOD SPECIMENOrdering Facility: [facility] Address: [address] [place] [address] Performed By: #### 1 9123-9, 19462-2 ####[facility] LABCLIA [id number] [place] [address] [place] Calcium [Mass/Vol] 6.9 mg/dL Low 8.5-10.2 [facility] Comment on above: Order Comment: Speci men Type: BLOOD SPECIMENOrdering Facility: [facility] Address: [address] [place] [address] Performed By: #### 1 9123-9, 69790-7 ####[facility] LABCLIA [id number] [place] [id number] [place] Chloride [Moles/Vol] 103 mmol/L Normal 98-107 [facility] Comment on above: Order Comment: Speci men Type: BLOOD SPECIMENOrdering Facility: [facility] Address: [address] [place] [address] Performed By: #### 1 9123-9, 99637-6 ####[facility] LABCLIA [id number] [place] [address] [place] CO2 [Moles/Vol] 15 mmol/L Low 22-30 [facility] Comment on above: Order Comment: Speci men Type: BLOOD SPECIMENOrdering Facility: [facility] Address: [address] [place] [address] Performed By: #### 1 9123-9, 24875-7 ####[facility] LABIA [id number] [place] [address] [place] Creatinine [Mass/Vol] 2.50 mg/dL High 0.58-0.96 [facility] Comment on above: Order Comment: Speci men Type: BLOOD SPECIMENOrdering Facility: [facility] Address: [address] [place] [address] Performed By: #### 1 9123-9, 36367-6 ####[facility] [id number] [place] [address] [place] Creatinine and Glomerular filtration rate.predicted panel (S/P/Bld) 19 mL/min/1.73m??? Low >=60 [facility] Comment on above: Order Comment: Speci men Type: BLOOD SPECIMENOrdering Facility: [facility] Address: [address] [place] [address] Result Comment: Kelsey mated Glomerular Filtration Rate (eGFR) is calculated using the 2020 CKD-EPI creatinine equation. This equation utilizes serum creatinine, sex, and age as parameters. The creatinine assay has traceable calibration to isotope dilution-mass spectrometry. Refer to KDIGO guidelines for clinical interpretation. In patients with unstable renal function, e.g. those with acute kidney injury, the eGFR may not accurately reflect actual GFR. Performed By: #### 1 9123-9, 11993-7 ####[facility] LABCLIA [id number] [place] [address] [place] Glucose [Mass/Vol] 120 mg/dL High 74-99 [facility] Comment on above: Order Comment: Speci men Type: BLOOD SPECIMENOrdering Facility: [facility] Address: [address] [place] [address] Result Comment: The [place] Diabetes [employer] (ADA) provides guidance for cutoff values for fasting glucose and random glucose. The ADA defines fasting as no caloric intake for at least 8 hours. Fasting plasma glucose results between 100 to 125 mg/dL indicate increased risk for diabetes (prediabetes).Fasting plasma glucose results greater than or equal to 126 mg/dL meet the criteria for diagnosis of diabetes. In the absence of unequivocal hyperglycemia, results should be confirmed by repeat testing. In a patient with classic symptoms of hyperglycemia or hyperglycemic crisis, random plasma glucose results greater than or equal to 200 mg/dL meet the criteria for diagnosis of diabetes.Reference: Standards of Medical Care in Diabetes 2016, [place] [employer]. Diabetes Care. 2016.39(Suppl 1). Performed By: #### 1 9123-9, 34549-8 ####[facility] LABCLIA [id number] [place] [address] [place] Phosphate [Mass/Vol] 3.0 mg/dL Normal 2.7-4.8 [facility] Comment on above: Order Comment: Víctor friend Type: BLOOD SPECIMENOrdering Facility: [facility] Address: [address] [place] [address] Performed By: #### 1 9123-9, 56621-9 ####[facility] LABCLIA [id number] [place] [address] [place] Potassium [Moles/Vol] 4.9 mmol/L Normal 3.7-5.1 [facility] Comment on above: Order Comment: Víctor friend Type: BLOOD SPECIMENOrdering Facility: [facility] Address: [address] [place] [address] Performed By: #### 1 9123-9, 07123-2 ####[facility] LABCLIA [id number] [place] [id number] [place] Sodium [Moles/Vol] 131 mmol/L Low 136-144 [facility] Comment on above: Order Comment: Speci men Type: BLOOD SPECIMENOrdering Facility: [facility] Address: [address] [place] [address] Performed By: #### 1 9123-9, 58841-1 ####[facility] LABIA [id number] [place] [id number] [place] Urea nitrogen [Mass/Vol] 58 mg/dL High 7-21 [facility] Comment on above: Order Comment: Speci men Type: BLOOD SPECIMENOrdering Facility: [facility] Address: [address] [place] [address] Performed By: #### 1 9123-9, 19569-6 ####[facility] LABIA [id number] [place] [address] [place] Sodium ?Tm Ur-sCncon 025 Sodium Unsp time (U) [Moles/Vol] 90 mmol/L Normal 14-216 [facility] Comment on above: Order Comment: Speci men Type: URINE SPECIMENOrdering Facility: [facility] Address: [address] [place] [address] Performed By: #### 3 5678-2 ####[facility] [id number] [place] [address] [place] THERAPY NTon 01-18-2025 THERAPY NT Normal [facility] Tacrolimus Bld-mCncon 2024 Tacrolimus (Bld) [Mass/Vol] 15.1 ng/mL Normal 5.0-20.0 [facility] Comment on above: Order Comment: Speci men Type: BLOOD SPECIMENOrdering Facility: [facility] Address: [address] [place] [address] Result Comment: Ema vidualized target levels for a given patient will [...] Test performed by chemiluminescent immunoassay using [employer] i. Performed By: #### 1 1253-2 ####[facility] LABIA [id number] [place] [address] [place] CBC panel Auto (Bld)on 01-17 Erythrocyte distribution width (RBC) [Ratio] 14.4 % Normal 11.5-15.0 [facility] Comment on above: Order Comment: Speci men Type: BLOOD SPECIMENOrdering Facility: [facility] Address: [address] [place] [address] Performed By: #### 5 8410-2 ####[facility] [id number] [address] [place] Hematocrit (Bld) [Volume fraction] 27.0 % Low 36.0-46.0 [facility] Comment on above: Order Comment: Speci men Type: BLOOD SPECIMENOrdering Facility: [facility] Address: [address] [place] [address] Performed By: #### 5 8410-2 ####[facility] [id number] [place] [address] [place] Hemoglobin (Bld) [Mass/Vol] 8.5 g/dL Low 11.5-15.5 [facility] Comment on above: Order Comment: Speci men Type: BLOOD SPECIMENOrdering Facility: [facility] Address: [address] [place] [address] Performed By: #### 5 8410-2 ####[facility] LABIA [id number] [place] [address] [place] MCH (RBC) [Entitic mass] 29.3 pg Normal 26.0-34.0 [facility] Comment on above: Order Comment: Speci men Type: BLOOD SPECIMENOrdering Facility: [facility] Address: [address] [place] [address] Performed By: #### 5 8410-2 ####[facility] LABIA [id number] [place] [address] [place] MCHC (RBC) [Mass/Vol] 31.5 g/dL Normal 30.5-36.0 [facility] Comment on above: Order Comment: Speci men Type: BLOOD SPECIMENOrdering Facility: [facility] Address: [address] [place] [address] Performed By: #### 5 8410-2 ####[facility] LABIA [id number] [place] [address] [place] MCV (RBC) [Entitic vol] 93.1 fL Normal 80.0-100.0 [facility] Comment on above: Order Comment: Speci men Type: BLOOD SPECIMENOrdering Facility: [facility] Address: [address] [place] [address] Performed By: #### 5 8410-2 ####[facility] [id number] [place] [address] [place] Nucleated RBC (Bld) [#/Vol] 10*3/uL Normal <0.01 [facility] Comment on above: Order Comment: Speci men Type: BLOOD SPECIMENOrdering Facility: [facility] Address: [address] [place] [address] Performed By: #### 5 8410-2 ####[facility] LABIA [id number] [place] [address] [place] Platelet mean volume (Bld) [Entitic vol] 11.0 fL Normal 9.0-12.7 [facility] Comment on above: Order Comment: Speci men Type: BLOOD SPECIMENOrdering Facility: [facility] Address: [address] [place] [address] Performed By: #### 5 8410-2 ####[facility] LABIA [id number] [address] [id number] [address] [place] Platelets (Bld) [#/Vol] 125 10*3/uL Low 150-400 [facility] Comment on above: Order Comment: Speci men Type: BLOOD SPECIMENOrdering Facility: [facility] Address: [address] [place] [address] Performed By: #### 5 8410-2 ####[facility] LABCLIA [id number] [place] [address] [place] RBC (Bld) [#/Vol] 2.90 10*6/uL Low 3.90-5.20 [place] Comment on above: Order Comment: Speci men Type: BLOOD SPECIMENOrdering Facility: [facility] Address: [address] [place] [address] Performed By: #### 5 8410-2 ####[facility] LABIA [id number] [place] [address] [place] WBC (Bld) [#/Vol] 8.76 10*3/uL Normal 3.70-11.00 [place] Comment on above: Order Comment: Speci men Type: BLOOD SPECIMENOrdering Facility: [facility] Address: [address] [place] [address] Performed By: #### 5 8410-2 ####[facility] LABIA [id number] [place] [address] [place] Magnesium SerPl-mCncon 01-17 Magnesium [Mass/Vol] 2.2 mg/dL Normal 1.7-2.3 [facility] Comment on above: Order Comment: Speci men Type: BLOOD SPECIMENOrdering Facility: [facility] Address: [address] [place] [address] Performed By: #### 1 9123-9, 86422-7 ####[facility] LABCLIA [id number] [place] [address] [place] PT panel Coag (PPP)on 02-16- 2025 INR Coag (PPP) [Relative time] 1.2 {INR} Normal 0.9-1.3 [facility] Comment on above: Order Comment: Víctor friend Type: BLOOD SPECIMENOrdering Facility: [facility] Address: [address] [place] [address] Result Comment: Zulay min K Antagonist (VKA) Therapeutic Range: INR 2 to 3 (Target INR of 2.5)Note: For patients treated with VKA drugs, such as warfarin, the [place] [employer] 2012 Guideline recommends a therapeutic INR range of 2 to 3 (target INR of 2.5). This recommendation includes high-risk patients with antiphospholipid syndrome with previous arterial or venous thromboembolism, current-generation mechanical or bioprosthetic aortic heart valve replacement.Note: Patients with mechanical aortic valve replacement and additional risk factors for thromboembolic events (atrial fibrillation, previous thromboembolism, LV dysfunction, hypercoagulable conditions) or an older generation mechanical AVR (i.e., ball in-Cage) or any mechanical MVR should have a INR therapeutic range of 2.5 to 3.5 (target INR of 3).Laura GH, et al. Chest 2012, 141:7S-47SNishelmer RA, et al. [facility] 2017, 70: 252-289 Performed By: #### 3 4528-0 ####[facility] [id number] [place] [address] [place] PT Coag (PPP) [Time] 12.6 s Normal 9.7-13.0 [facility] Comment on above: Order Comment: Víctor friend Type: BLOOD SPECIMENOrdering Facility: [facility] Address: [address] [place] [id number] Performed By: #### 3 4528-0 ####[facility] [id number] [place] [address] [place] Renal function 2000 panelon 01-17-2025 Albumin [Mass/Vol] 2.8 g/dL Low 3.9-4.9 [facility] Comment on above: Order Comment: Víctor friend Type: BLOOD SPECIMENOrdering Facility: [facility] Address: [address] [place] [address] Performed By: #### 1 9123-9, 48725-2 ####[facility] LABCLIA [id number] [place] [address] [place] Anion gap [Moles/Vol] 11 mmol/L Normal 8-15 [facility] Comment on above: Order Comment: Speci men Type: BLOOD SPECIMENOrdering Facility: [facility] Address: [address] [place] [address] Performed By: #### 1 9123-9, 35761-9 ####[facility] LABCLIA [id number] [place] [address] [place] Calcium [Mass/Vol] 6.5 mg/dL Low 8.5-10.2 [facility] [facility] Comment on above: Order Comment: Speci men Type: BLOOD SPECIMENOrdering Facility: [facility] Address: [address] [place] [address] Performed By: #### 1 9123-9, 88194-8 ####[facility] LABCLIA [id number] [place] [address] [place] Chloride [Moles/Vol] 104 mmol/L Normal 98-107 [facility] Comment on above: Order Comment: Speci men Type: BLOOD SPECIMENOrdering Facility: [facility] Address: [address] [place] [address] Performed By: #### 1 9123-9, 09549-5 ####[facility] LABCLIA [id number] [place] [address] [place] CO2 [Moles/Vol] 20 mmol/L Low 22-30 [facility] Comment on above: Order Comment: Speci men Type: BLOOD SPECIMENOrdering Facility: [facility] Address: [address] [place] [address] Performed By: #### 1 9123-9, 12973-6 ####[facility] LABCLIA [id number] [place] [address] [place] Creatinine [Mass/Vol] 2.77 mg/dL High 0.58-0.96 [facility] Comment on above: Order Comment: Víctor friend Type: BLOOD SPECIMENOrdering Facility: [facility] Address: [address] [place] [address] Performed By: #### 1 9123-9, 06031-1 ####[facility] [id number] [address] Creatinine and Glomerular filtration rate.predicted panel (S/P/Bld) 17 mL/min/1.73m??? Low >=60 [facility] Comment on above: Order Comment: Víctor friend Type: BLOOD SPECIMENOrdering Facility: [facility] Address: [address] [place] [address] Result Comment: Kelsey mated Glomerular Filtration Rate (eGFR) is calculated using the 2020 CKD-EPI creatinine equation. This equation utilizes serum creatinine, sex, and age as parameters. The creatinine assay has traceable calibration to isotope dilution-mass spectrometry. Refer to KDIGO guidelines for clinical interpretation. In patients with unstable renal function, e.g. those with acute kidney injury, the eGFR may not accurately reflect actual GFR. Performed By: #### 1 9123-9, 09425-5 ####[facility] LABIA [id number] [place] [address] [place] Glucose [Mass/Vol] 142 mg/dL High 74-99 [facility] Comment on above: Order Comment: Víctor friend Type: BLOOD SPECIMENOrdering Facility: [facility] Address: [address] [place] [address] Result Comment: The [place] [employer] (ADA) provides guidance for cutoff values for fasting glucose and random glucose. The ADA defines fasting as no caloric intake for at least 8 hours. Fasting plasma glucose results between 100 to 125 mg/dL indicate increased risk for diabetes (prediabetes).Fasting plasma glucose results greater than or equal to 126 mg/dL meet the criteria for diagnosis of diabetes. In the absence of unequivocal hyperglycemia, results should be confirmed by repeat testing. In a patient with classic symptoms of hyperglycemia or hyperglycemic crisis, random plasma glucose results greater than or equal to 200 mg/dL meet the criteria for diagnosis of diabetes.Reference: Standards of Medical Care in Diabetes 2016, [place] [employer]. Diabetes Care. 2016.39(Suppl 1). Performed By: #### 1 9123-9, 34873-2 ####[facility] LABCLIA [id number] [place] [address] [place] Phosphate [Mass/Vol] 2.9 mg/dL Normal 2.7-4.8 [facility] Comment on above: Order Comment: Speci men Type: BLOOD SPECIMENOrdering Facility: [facility] Address: [address] [place] [address] Performed By: #### 1 9123-9, 17729-7 ####[facility] LABCLIA [id number] [place] [address] [place] Potassium [Moles/Vol] 4.0 mmol/L Normal 3.7-5.1 [facility] Comment on above: Order Comment: Speci men Type: BLOOD SPECIMENOrdering Facility: [facility] Address: [address] [place] [address] Performed By: #### 1 9123-9, 63640-5 ####[facility] LABIA [id number] [place] [address] [place] Sodium [Moles/Vol] 135 mmol/L Low 136-144 [facility] Comment on above: Order Comment: Speci men Type: BLOOD SPECIMENOrdering Facility: [facility] Address: [address] [place] [address] Performed By: #### 1 9123-9, 14797-8 ####[facility] LABCLIA [id number] [place] [id number] [place] Urea nitrogen [Mass/Vol] 59 mg/dL High 7-21 [facility] Comment on above: Order Comment: Speci men Type: BLOOD SPECIMENOrdering Facility: [facility] Address: [address] [place] [address] Performed By: #### 1 9123-9, 49079-9 ####[facility] LABIA [id number] [place] [address] [place] Tacrolimus Bld-mCncon 2024 Tacrolimus (Bld) [Mass/Vol] 12.8 ng/mL Normal 5.0-20.0 [facility] Comment on above: Order Comment: Verenai men Type: BLOOD SPECIMENOrdering Facility: [facility] Address: [address] [place] [address] Result Comment: Ema vidualized target levels for a given patient will [...] situation. Test performed by chemiluminescent immunoassay using PANOSOL Alinity i. Performed By: #### 1 1253-2 ####[facility] [id number] [place] [address] [place] CBC panel Auto (Bld)on 01-16 Erythrocyte distribution width (RBC) [Ratio] 14.7 % Normal 11.5-15.0 [facility] Comment on above: Order Comment: Verenai men Type: BLOOD SPECIMENOrdering Facility: [facility] Address: [address] [place] [address] Performed By: #### 5 8410-2, 09892-1 ####[facility] LABIA [id number] [place] [address] [place] Hematocrit (Bld) [Volume fraction] 24.0 % Low 36.0-46.0 [facility] Comment on above: Order Comment: Verenai men Type: BLOOD SPECIMENOrdering Facility: [facility] Address: [address] [place] [address] Performed By: #### 5 8410-2, 24908-1 ####[facility] LABIA [id number] [place] [address] [place] Hemoglobin (Bld) [Mass/Vol] 7.7 g/dL Low 11.5-15.5 [facility] Comment on above: Order Comment: Speci men Type: BLOOD SPECIMENOrdering Facility: [facility] Address: [address] [place] [address] Performed By: #### 5 8410-2, 72535-3 ####[facility] [id number] [place] [address] [place] MCH (RBC) [Entitic mass] 29.8 pg Normal 26.0-34.0 [facility] Comment on above: Order Comment: Speci men Type: BLOOD SPECIMENOrdering Facility: [facility] Address: [address] [place] [address] Performed By: #### 5 8410-2, 00169-2 ####[facility] [id number] [place] [address] [place] MCHC (RBC) [Mass/Vol] 32.1 g/dL Normal 30.5-36.0 [facility] Comment on above: Order Comment: Speci men Type: BLOOD SPECIMENOrdering Facility: [facility] Address: [address] [place] [address] Performed By: #### 5 8410-2, 54832-7 ####[facility] [id number] [place] [address] [place] MCV (RBC) [Entitic vol] 93.0 fL Normal 80.0-100.0 [facility] Comment on above: Order Comment: Speci men Type: BLOOD SPECIMENOrdering Facility: [facility] Address: [address] [place] [address] Performed By: #### 5 8410-2, 59586-0 ####[facility] LABCLIA [id number] [place] [address] [place] Nucleated RBC (Bld) [#/Vol] 0.02 10*3/uL High <0.01 [facility] Comment on above: Order Comment: Speci men Type: BLOOD SPECIMENOrdering Facility: [facility] Address: [address] [place] [address] Performed By: #### 5 8410-2, 02540-7 ####[facility] LABCLIA [id number] [place] [address] [place] Platelet mean volume (Bld) [Entitic vol] 11.6 fL Normal 9.0-12.7 [facility] Comment on above: Order Comment: Speci men Type: BLOOD SPECIMENOrdering Facility: [facility] Address: [address] [place] [address] Performed By: #### 5 8410-2, 56743-3 ####[facility] LABCLIA [id number] [place] [address] [place] Platelets (Bld) [#/Vol] 84 10*3/uL Low 150-400 [facility] Comment on above: Order Comment: Speci men Type: BLOOD SPECIMENOrdering Facility: [facility] Address: [address] [place] [address] Result Comment: No c lot detected. Performed By: #### 5 8410-2, 61376-1 ####[facility] LABCLIA [id number] [place] [address] [place] RBC (Bld) [#/Vol] 2.58 10*6/uL Low 3.90-5.20 [place] Comment on above: Order Comment: Speci men Type: BLOOD SPECIMENOrdering Facility: [facility] Address: [address] [place] [address] Performed By: #### 5 8410-2, 61378-7 ####[facility] LABCLIA [id number] [place] [id number] [place] WBC (Bld) [#/Vol] 9.03 10*3/uL Normal 3.70-11.00 [place] Comment on above: Order Comment: Speci men Type: BLOOD SPECIMENOrdering Facility: [facility] Address: [address] [place] [address] Performed By: #### 5 8410-2, 07243-4 ####[facility] [id number] [place] [address] [place] Fibrinogen PPP-mCncon 2024 Fibrinogen Coag (PPP) [Mass/Vol] 161 mg/dL Low 200-400 [facility] Comment on above: Order Comment: Speci men Type: BLOOD SPECIMENOrdering Facility: [facility] Address: [address] [place] [address] Performed By: #### 3 4528-0, 3255-7 ####[facility] [id number] [place] [address] [place] Magnesium SerPl-mCncon 01-16 Magnesium [Mass/Vol] 1.5 mg/dL Low 1.7-2.3 [facility] Comment on above: Order Comment: Speci men Type: BLOOD SPECIMENOrdering Facility: [facility] Address: [address] [place] [address] Performed By: #### 2 4362-6, 57880-2 ####[facility] [id number] [place] [address] [place] PT panel Coag (PPP)on 2024 INR Coag (PPP) [Relative time] 1.3 {INR} Normal 0.9-1.3 [facility] Comment on above: Order Comment: Speci men Type: BLOOD SPECIMENOrdering Facility: [facility] Address: [address], [place] [address] Result Comment: Zulay min K Antagonist (VKA) Therapeutic Range: INR 2 to 3 (Target INR of 2.5)Note: For patients treated with VKA drugs, such as warfarin, the [place] [employer] 2012 Guideline recommends a therapeutic INR range of 2 to 3 (target INR of 2.5). This recommendation includes high-risk patients with antiphospholipid syndrome with previous arterial or venous thromboembolism, current-generation mechanical or bioprosthetic aortic heart valve replacement.Note: Patients with mechanical aortic valve replacement and additional risk factors for thromboembolic events (atrial fibrillation, previous thromboembolism, LV dysfunction, hypercoagulable conditions) or an older generation mechanical AVR (i.e., ball in-Cage) or any mechanical MVR should have a INR therapeutic range of 2.5 to 3.5 (target INR of 3).Laura GH, et al. Chest 2012, 141:7S-47SNishelmer RA, et al. [facility] 2017, 70: 252-289 Performed By: #### 3 4528-0, 7 ####[facility] LABIA [id number] [place] [address] [place] PT Coag (PPP) [Time] 14.0 s High 9.7-13.0 [facility] Comment on above: Order Comment: Speci men Type: BLOOD SPECIMENOrdering Facility: [facility] Address: [address] [place] [address] Performed By: #### 3 4528-0, 7 ####[facility] LABIA [id number] [place] [address] [place] Renal function 2000 panelon 01-16-2025 Albumin [Mass/Vol] 2.5 g/dL Low 3.9-4.9 [facility] Comment on above: Order Comment: Speci men Type: BLOOD SPECIMENOrdering Facility: [facility] Address: [address] [place] [address] Performed By: #### 2 4362-6, 64071-6 ####[facility] LABIA [id number] [place] [address] [place] Anion gap [Moles/Vol] 10 mmol/L Normal 8-15 [facility] Comment on above: Order Comment: Speci men Type: BLOOD SPECIMENOrdering Facility: [facility] Address: [address] [place] [address] Performed By: #### 2 4362-6, ####[facility] LABCLIA [id number] [place] [address] [place] Calcium [Mass/Vol] 5.8 mg/dL Low 8.5-10.2 [facility] Comment on above: Order Comment: Speci men Type: BLOOD SPECIMENOrdering Facility: [facility] Address: [address] [place] [address] Performed By: #### 2 4362-6, ####[facility] LABCLIA [id number] [place] [address] [place] Chloride [Moles/Vol] 105 mmol/L Normal 98-107 [facility] Comment on above: Order Comment: Speci men Type: BLOOD SPECIMENOrdering Facility: [facility] Address: [address] [place] [address] Performed By: #### 2 4362-6, ####[facility] LABCLIA [id number] [place] [address] [place] CO2 [Moles/Vol] 19 mmol/L Low 22-30 [facility] Comment on above: Order Comment: Speci men Type: BLOOD SPECIMENOrdering Facility: [facility] Address: [address] [place], [place] [address] Performed By: #### 2 4362-6, ####[facility] LABCLIA [id number] [place] [id number] [place] Creatinine [Mass/Vol] 2.82 mg/dL High 0.58-0.96 [facility] Comment on above: Order Comment: Speci men Type: BLOOD SPECIMENOrdering Facility: [facility] Address: [address] [place] [id number] Performed By: #### 2 4362-6, ####[facility] LABIA [id number] [place] [address] [place] Creatinine and Glomerular filtration rate.predicted panel (S/P/Bld) 16 mL/min/1.73m??? Low >=60 [facility] Comment on above: Order Comment: Víctor friend Type: BLOOD SPECIMENOrdering Facility: [facility] Address: [address] [place] [address] Result Comment: Kelsey mated Glomerular Filtration Rate (eGFR) is calculated using the 2020 CKD-EPI creatinine equation. This equation utilizes serum creatinine, sex, and age as parameters. The creatinine assay has traceable calibration to isotope dilution-mass spectrometry. Refer to KDIGO guidelines for clinical interpretation. In patients with unstable renal function, e.g. those with acute kidney injury, the eGFR may not accurately reflect actual GFR. Performed By: #### 2 4362-6, ####[facility] LABIA [id number] [place] [id number] [place] Glucose [Mass/Vol] 125 mg/dL High 74-99 [facility] Comment on above: Order Comment: Víctor ronna Type: BLOOD SPECIMENOrdering Facility: [facility] Address: [address] [place] [address] Result Comment: The [place] [employer] (ADA) provides guidance for cutoff values for fasting glucose and random glucose. The ADA defines fasting as no caloric intake for at least 8 hours. Fasting plasma glucose results between 100 to 125 mg/dL indicate increased risk for diabetes (prediabetes).Fasting plasma glucose results greater than or equal to 126 mg/dL meet the criteria for diagnosis of diabetes. In the absence of unequivocal hyperglycemia, results should be confirmed by repeat testing. In a patient with classic symptoms of hyperglycemia or hyperglycemic crisis, random plasma glucose results greater than or equal to 200 mg/dL meet the criteria for diagnosis of diabetes.Reference: Standards of Medical Care in Diabetes 2016, [place] [employer]. Diabetes Care. 2016.39(Suppl 1). Performed By: #### 2 4362-6, ####[facility] LABCLIA [id number] [address] [address] [place] Phosphate [Mass/Vol] 2.4 mg/dL Low 2.7-4.8 [facility] Comment on above: Order Comment: Speci men Type: BLOOD SPECIMENOrdering Facility: [facility] Address: [address] [place] [address] Performed By: #### 2 436-6, ####[facility] LABCLIA [id number] [place] [address] [place] Potassium [Moles/Vol] 4.0 mmol/L Normal 3.7-5.1 [facility] Comment on above: Order Comment: Speci men Type: BLOOD SPECIMENOrdering Facility: [facility] Address: [address] [place] [address] Performed By: #### 2 43601-07, ####[facility] LABCLIA [id number] [place] [address] [place] Sodium [Moles/Vol] 134 mmol/L Low 136-144 [facility] Comment on above: Order Comment: Speci men Type: BLOOD SPECIMENOrdering Facility: [facility] Address: [address] [place], [place] [address] Performed By: #### 2 43601-07, ####[facility] LABCLIA [id number] [address] [address] [place] Urea nitrogen [Mass/Vol] 55 mg/dL High 7-21 [facility] Comment on above: Order Comment: Speci men Type: BLOOD SPECIMENOrdering Facility: [facility] Address: [address] [place], [place] [address] Performed By: #### 2 4362-6, ####[facility] LABCLIA [id number] [place] [address] [place] Tacrolimus Bld-ncon 2024 Tacrolimus (Bld) [Mass/Vol] 17.9 ng/mL Normal 5.0-20.0 [facility] Comment on above: Order Comment: Speci men Type: BLOOD SPECIMENOrdering Facility: [facility] Address: [address] [place] [address] Result Comment: Ema vidualized target levels for a given patient will [...] situation. Test performed by chemiluminescent immunoassay using PANOSOL Alinity i. Performed By: #### 5 8410-2, 77536-9 ####[facility] [id number] [place] [address] [place] ALLIED HEALTHon 01-15-2025 ALLIED HEALTH Normal [facility] Basic metabolic 2000 panelon 01-15-2025 Anion gap [Moles/Vol] 11 mmol/L Normal - [facility] Comment on above: Order Comment: Speci men Type: BLOOD SPECIMENOrdering Facility: [facility] Address: [address] [place] [address] Performed By: #### 2 4321-2, 2777-1, HSTNT, ####[facility] [id number] [place] [address] [place] Calcium [Mass/Vol] 6.4 mg/dL Low 8.5-10.2 [facility] Comment on above: Order Comment: Speci men Type: BLOOD SPECIMENOrdering Facility: [facility] Address: [address] [place] [address] Performed By: #### 2 4321-2, 2777-1, HSTNT, ####[facility] LABCLIA [id number] [address] [address] [place] Chloride [Moles/Vol] 106 mmol/L Normal 98-107 [facility] Comment on above: Order Comment: Speci men Type: BLOOD SPECIMENOrdering Facility: [facility] Address: [address] [place], [place] [address] Performed By: #### 2 4321-2, 2777-1, HSTNT, ####[facility] LABCLIA [id number] [address] [address] [place] CO2 [Moles/Vol] 20 mmol/L Low 22-30 [facility] Comment on above: Order Comment: Speci men Type: BLOOD SPECIMENOrdering Facility: [facility] Address: [address] [place] [address] Performed By: #### 2 4321-2, 2777-1, TNT, ####[facility] LABCLIA [id number] [address] [address] [place] Creatinine [Mass/Vol] 3.22 mg/dL High 0.58-0.96 [facility] Comment on above: Order Comment: Speci men Type: BLOOD SPECIMENOrdering Facility: [facility] Address: [address] [place] [address] Performed By: #### 2 4321-2, 2777-1, HSTNT, ####[facility] LABCLIA [id number] [address] [address] [place] Creatinine and Glomerular filtration rate.predicted panel (S/P/Bld) 14 mL/min/1.73m??? Low >=60 [facility] Comment on above: Order Comment: Speci men Type: BLOOD SPECIMENOrdering Facility: [facility] Address: [address] [place], [place] [address] Result Comment: Kelsey mated Glomerular Filtration Rate (eGFR) is calculated using the 2020 CKD-EPI creatinine equation. This equation utilizes serum creatinine, sex, and age as parameters. The creatinine assay has traceable calibration to isotope dilution-mass spectrometry. Refer to KDIGO guidelines for clinical interpretation. In patients with unstable renal function, e.g. those with acute kidney injury, the eGFR may not accurately reflect actual GFR. Performed By: #### 2 4321-2, 2776-1, HSTNT, ####[facility] LABCLIA [id number] [address] [address] [place] Glucose [Mass/Vol] 84 mg/dL Normal 74-99 [facility] Comment on above: Order Comment: Víctor friend Type: BLOOD SPECIMENOrdering Facility: [facility] Address: [address] [place] [address] Result Comment: The [place] [employer] (ADA) provides guidance for cutoff values for fasting glucose and random glucose. The ADA defines fasting as no caloric intake for at least 8 hours. Fasting plasma glucose results between 100 to 125 mg/dL indicate increased risk for diabetes (prediabetes).Fasting plasma glucose results greater than or equal to 126 mg/dL meet the criteria for diagnosis of diabetes. In the absence of unequivocal hyperglycemia, results should be confirmed by repeat testing. In a patient with classic symptoms of hyperglycemia or hyperglycemic crisis, random plasma glucose results greater than or equal to 200 mg/dL meet the criteria for diagnosis of diabetes.Reference: Standards of Medical Care in Diabetes 2016, [place] [employer]. Diabetes Care. 2016.39(Suppl 1). Performed By: #### 2 4321-2, 2776-, HSTNT, ####[facility] LABCLIA [id number] [address] [address] [place] Potassium [Moles/Vol] 4.0 mmol/L Normal 3.7-5.1 [facility] Comment on above: Order Comment: Víctor friend Type: BLOOD SPECIMENOrdering Facility: [facility] Address: [address] [place] [address] Performed By: #### 2 4321-2, 2776-, HSTNT, ####[facility] LABCLIA [id number] [address] [address] [place] Sodium [Moles/Vol] 137 mmol/L Normal 136-144 [facility] Comment on above: Order Comment: Speci men Type: BLOOD SPECIMENOrdering Facility: [facility] Address: [address] [place] [address] Performed By: #### 2 4321-2, 2777-1, HSTNT, 54372-4 ####[facility] LABIA [id number] [place] [address] [place] Urea nitrogen [Mass/Vol] 64 mg/dL High 7-21 [facility] Comment on above: Order Comment: Speci men Type: BLOOD SPECIMENOrdering Facility: [facility] Address: [address] [place] [address] Performed By: #### 2 4321-2, 2777-1, HSTNT, ####[facility] LABIA [id number] [place] [address] [place] CASE MANAGEMon 01-15-2025 CASE MANAGEM Normal [facility] CBC panel Auto (Bld)on 01-15 Erythrocyte distribution width (RBC) [Ratio] 14.6 % Normal 11.5-15.0 [facility] Comment on above: Order Comment: Speci men Type: BLOOD SPECIMENOrdering Facility: [facility] Address: [address] [place] [address] Performed By: #### 5 8410-2 ####[facility] LABIA [id number] [place] [address] [place] Hematocrit (Bld) [Volume fraction] 25.3 % Low 36.0-46.0 [facility] Comment on above: Order Comment: Speci men Type: BLOOD SPECIMENOrdering Facility: [facility] Address: [address] [place] [address] Performed By: #### 5 8410-2 ####[facility] LABIA [id number] [place] [address] [place] Hemoglobin (Bld) [Mass/Vol] 8.2 g/dL Low 11.5-15.5 [facility] Comment on above: Order Comment: Speci men Type: BLOOD SPECIMENOrdering Facility: [facility] Address: [address] [place] [address] Performed By: #### 5 8410-2 ####[facility] LABIA [id number] [place] [address] [place] MCH (RBC) [Entitic mass] 29.2 pg Normal 26.0-34.0 [facility] Comment on above: Order Comment: Speci men Type: BLOOD SPECIMENOrdering Facility: [facility] Address: [address] [place] [address] Performed By: #### 5 8410-2 ####[facility] [id number] [place] [address] [place] MCHC (RBC) [Mass/Vol] 32.4 g/dL Normal 30.5-36.0 [facility] Comment on above: Order Comment: Speci men Type: BLOOD SPECIMENOrdering Facility: [facility] Address: [address] [place] [address] Performed By: #### 5 8410-2 ####[facility] [id number] [place] [address] [place] MCV (RBC) [Entitic vol] 90.0 fL Normal 80.0-100.0 [facility] Comment on above: Order Comment: Speci men Type: BLOOD SPECIMENOrdering Facility: [facility] Address: [address] [place] [address] Performed By: #### 5 8410-2 ####[facility] [id number] [place] [address] [place] Nucleated RBC (Bld) [#/Vol] 10*3/uL Normal <0.01 [facility] Comment on above: Order Comment: Speci men Type: BLOOD SPECIMENOrdering Facility: [facility] Address: [address] [place] [address] Performed By: #### 5 8410-2 ####[facility] LABCLIA [id number] [place] [address] [place] Platelet mean volume (Bld) [Entitic vol] 11.6 fL Normal 9.0-12.7 [facility] Comment on above: Order Comment: Speci men Type: BLOOD SPECIMENOrdering Facility: [facility] Address: [address] [place] [address] Performed By: #### 5 8410-2 ####[facility] LABCLIA [id number] [place] [address] [place] Platelets (Bld) [#/Vol] 58 10*3/uL Low 150-400 [facility] Comment on above: Order Comment: Speci men Type: BLOOD SPECIMENOrdering Facility: [facility] Address: [address] [place] [address] Performed By: #### 5 8410-2 ####[facility] LABIA [id number] [place] [address] [place] RBC (Bld) [#/Vol] 2.81 10*6/uL Low 3.90-5.20 [place] Comment on above: Order Comment: Speci men Type: BLOOD SPECIMENOrdering Facility: [facility] Address: [address] [place] [address] Performed By: #### 5 8410-2 ####[facility] LABCLIA [id number] [place] [address] [place] WBC (Bld) [#/Vol] 11.14 10*3/uL High 3.70-11.00 [facility] Comment on above: Order Comment: Speci men Type: BLOOD SPECIMENOrdering Facility: [facility] Address: [address] [place] [address] Performed By: #### 5 8410-2 ####[facility] LABCLIA [id number] [place] [address] [place] CONSULTon 01-15-2025 CONSULT Normal [facility] CONSULT Normal [facility] CONSULT Normal [facility] CONSULT PROGon 01-15-2025 CONSULT PROG Normal [facility] CONSULT PROG Normal [facility] HIGH SENSITIVITY TROPONIN To n 01-15-2025 Troponin T.cardiac High sensitivity method [Mass/Vol] 21 ng/L High <12 [facility] Comment on above: Order Comment: Speci men Type: BLOOD SPECIMENOrdering Facility: [facility] Address: [address] [place] [address] Performed By: #### H STNT ####[facility] LABCLIA [id number] [place] [address] [place] Troponin T.cardiac High sensitivity method [Mass/Vol] 20 ng/L High <12 [facility] Comment on above: Order Comment: Speci men Type: BLOOD SPECIMENOrdering Facility: [facility] Address: [address] [place] [address] Performed By: #### 2 4321-2, 2777-1, HSTNT, ####[facility] LABCLIA [id number] [place] [address] [place] Magnesium SerPl-mCncon 01-15 Magnesium [Mass/Vol] 1.4 mg/dL Low 1.7-2.3 [facility] Comment on above: Order Comment: Speci men Type: BLOOD SPECIMENOrdering Facility: [facility] Address: [address] [place] [address] Performed By: #### 2 4321-2, 2777-1, HSTNT, ####[facility] LABCLIA [id number] [place] [address] [place] PT panel Coag (PPP)on 2024 INR Coag (PPP) [Relative time] 1.3 {INR} Normal 0.9-1.3 [facility] Comment on above: Order Comment: Víctor friend Type: BLOOD SPECIMENOrdering Facility: [facility] Address: [address] [place] [address] Result Comment: Zulay min K Antagonist (VKA) Therapeutic Range: INR 2 to 3 (Target INR of 2.5)Note: For patients treated with VKA drugs, such as warfarin, the [place] [employer] 2012 Guideline recommends a therapeutic INR range of 2 to 3 (target INR of 2.5). This recommendation includes high-risk patients with antiphospholipid syndrome with previous arterial or venous thromboembolism, current-generation mechanical or bioprosthetic aortic heart valve replacement.Note: Patients with mechanical aortic valve replacement and additional risk factors for thromboembolic events (atrial fibrillation, previous thromboembolism, LV dysfunction, hypercoagulable conditions) or an older generation mechanical AVR (i.e., ball in-Cage) or any mechanical MVR should have a INR therapeutic range of 2.5 to 3.5 (target INR of 3).Alexsandertt GH, et al. Chest 2012, 141:7S-47SNishimura RA, et al. [facility] 2017, 70: 252-289 Performed By: #### 3 4528-0 ####[facility] LABIA [id number] [place] [address] [place] PT Coag (PPP) [Time] 13.7 s High 9.7-13.0 [facility] Comment on above: Order Comment: Víctor friend Type: BLOOD SPECIMENOrdering Facility: [facility] Address: [address] [id number] Performed By: #### 3 4528-0 ####[facility] LABIA [id number] [place] [address] [place] Phosphate SerPl-mCncon 01-15 Phosphate [Mass/Vol] 2.7 mg/dL Normal 2.7-4.8 [facility] Comment on above: Order Comment: Speci men Type: BLOOD SPECIMENOrdering Facility: [facility] Address: [address] [place] [address] Performed By: #### 2 4321-2, 2777-1, HSTNT, 05556-1 ####[facility] LABCLIA [id number] [place] [address] [place] THERAPY NTon 01-15-2025 THERAPY NT Normal [facility] TYPE + SCREENon 01-15-2025 ABO O Normal [facility] Comment on above: Order Comment: Speci men Type: BLOOD SPECIMENOrdering Facility: [facility] Address: [address] [place] [address] Performed By: #### T SCR ####[facility] BANKCLIA [id number] [place] [address] [place] Rh Nom (Bld) Negative Normal [facility] Comment on above: Order Comment: Speci men Type: BLOOD SPECIMENOrdering Facility: [facility] Address: [address] [place] [address] Performed By: #### T SCR ####[facility] BLOOD BANKCLIA [id number] [place] [address] [place] TYPE AND SCREEN EXPIRATION 01/18/2025 23:59 Normal [facility] Comment on above: Order Comment: Speci men Type: BLOOD SPECIMENOrdering Facility: [facility] Address: [address] [place] [address] Performed By: #### T SCR ####[facility] BLOOD BANKCLIA [id number] [place] [address] [place] Tacrolimus Bld-mCncon 2024 Tacrolimus (Bld) [Mass/Vol] 6.4 ng/mL Normal 5.0-20.0 [facility] Comment on above: Order Comment: Speci men Type: BLOOD SPECIMENOrdering Facility: [facility] Address: [address] [place] [address] Result Comment: Ema vidualized target levels for a given patient will [...] situation. Test performed by chemiluminescent immunoassay using PANOSOL Alinity i. Performed By: #### 1 1253-2 ####[facility] LABIA [id number] [place] [address] [place] XR CHEST 1V FRONTAL PORTon 0 01-15-2025 XR CHEST 1V FRONTAL PORT Normal [facility] ANTI PLT FACTOR 4 ABon 01-14 Heparin induced platelet IgG Frederick (S) [Interp] Negative Normal Negative [facility] Comment on above: Order Comment: Specsherita friend Type: BLOOD SPECIMENOrdering Facility: [facility] Address: [address] [place] [address] Result Comment: No a nti-platelet factor 4 IgG antibody is detected by RICK assay.Heparin-induced thrombocytopenia (HIT) is unlikely, but should be excluded based on clinical factors. Performed By: #### P LATF4 ####[facility] [id number] [place] [address] [place] Platelet factor 4 Qn (PPP) 0.116 OD Normal <0.400 [facility] Comment on above: Order Comment: Verenai ronna Type: BLOOD SPECIMENOrdering Facility: [facility] Address: [address] [place] [address] Result Comment: Not calculated Performed By: #### P LATF4 ####[facility] LABIA [id number] [place] [address] [place] Basic metabolic 2000 panelon 01-14-2025 Anion gap [Moles/Vol] 13 mmol/L Normal 8-15 [facility] Comment on above: Order Comment: Specsherita men Type: BLOOD SPECIMENOrdering Facility: [facility] Address: [address] [place], [place] [address] Performed By: #### 2 777-1, 67419-0, , 96960-4 ####[facility] LABCLIA [id number] [address] [address] [place] Calcium [Mass/Vol] 6.0 mg/dL Low 8.5-10.2 [facility] Comment on above: Order Comment: Speci men Type: BLOOD SPECIMENOrdering Facility: [facility] Address: [address] [place] [address] Performed By: #### 2 777-1, 87754-7, , 31183-5 ####[facility] LABCLIA [id number] [place] [address] [place] Chloride [Moles/Vol] 108 mmol/L High 98-107 [facility] Comment on above: Order Comment: Speci men Type: BLOOD SPECIMENOrdering Facility: [facility] Address: [address] [place] [address] Performed By: #### 2 777-1, 66244-9, , 77797-8 ####[facility] LABCLIA [id number] [place] [address] [place] CO2 [Moles/Vol] 18 mmol/L Low 22-30 [facility] Comment on above: Order Comment: Speci men Type: BLOOD SPECIMENOrdering Facility: [facility] Address: [address] [place] [address] Performed By: #### 2 777-1, 09864-9, , 35822-2 ####[facility] LABCLIA [id number] [place] [address] [place] Creatinine [Mass/Vol] 3.31 mg/dL High 0.58-0.96 [facility] Comment on above: Order Comment: Speci men Type: BLOOD SPECIMENOrdering Facility: [facility] Address: [address] [place] [address] Performed By: #### 2 777-1, 43050-2, 78187-2, 30236-9 ####[facility] LABIA [id number] [place] [address] [place] Creatinine and Glomerular filtration rate.predicted panel (S/P/Bld) 14 mL/min/1.73m??? Low >=60 [facility] Comment on above: Order Comment: Speci men Type: BLOOD SPECIMENOrdering Facility: [facility] Address: [address] [place] [address] Result Comment: Kelsey mated Glomerular Filtration Rate (eGFR) is calculated using the 2020 CKD-EPI creatinine equation. This equation utilizes serum creatinine, sex, and age as parameters. The creatinine assay has traceable calibration to isotope dilution-mass spectrometry. Refer to KDIGO guidelines for clinical interpretation. In patients with unstable renal function, e.g. those with acute kidney injury, the eGFR may not accurately reflect actual GFR. Performed By: #### 2 777-1, 47554-3, 94466-7, 70870-4 ####[facility] LABCLIA [id number] [place] [id number] [place] Glucose [Mass/Vol] 123 mg/dL High 74-99 [facility] Comment on above: Order Comment: Verenai men Type: BLOOD SPECIMENOrdering Facility: [facility] Address: [address] [place] [address] Result Comment: The [place] [employer] (ADA) provides guidance for cutoff values for fasting glucose and random glucose. The ADA defines fasting as no caloric intake for at least 8 hours. Fasting plasma glucose results between 100 to 125 mg/dL indicate increased risk for diabetes (prediabetes).Fasting plasma glucose results greater than or equal to 126 mg/dL meet the criteria for diagnosis of diabetes. In the absence of unequivocal hyperglycemia, results should be confirmed by repeat testing. In a patient with classic symptoms of hyperglycemia or hyperglycemic crisis, random plasma glucose results greater than or equal to 200 mg/dL meet the criteria for diagnosis of diabetes.Reference: Standards of Medical Care in Diabetes 2016, [place] [employer]. Diabetes Care. 2016.39(Suppl 1). Performed By: #### 2 777-1, 69907-5, , 95974-2 ####[facility] LABCLIA [id number] [address] [address] [place] Potassium [Moles/Vol] 3.9 mmol/L Normal 3.7-5.1 [facility] Comment on above: Order Comment: Speci men Type: BLOOD SPECIMENOrdering Facility: [facility] Address: [address] [place] [address] Performed By: #### 2 777-1, 96421-3, , 81258-1 ####[facility] LABIA [id number] [place] [address] [place] Sodium [Moles/Vol] 139 mmol/L Normal 136-144 [facility] Comment on above: Order Comment: Speci men Type: BLOOD SPECIMENOrdering Facility: [facility] Address: [address] [place] [address] Performed By: #### 2 777-1, 61863-1, , 50466-1 ####[facility] LABIA [id number] [place] [address] [place] Urea nitrogen [Mass/Vol] 78 mg/dL High 7-21 [facility] Comment on above: Order Comment: Speci men Type: BLOOD SPECIMENOrdering Facility: [facility] Address: [address] [place] [address] Performed By: #### 2 777-1, 01530-6, , 90112-5 ####[facility] LABIA [id number] [address] [address] [place] CASE MANAGEMon 01-14-2025 CASE MANAGEM Normal [facility] CBC panel Auto (Bld)on 01-14 Erythrocyte distribution width (RBC) [Ratio] 14.6 % Normal 11.5-15.0 [facility] Comment on above: Order Comment: Speci men Type: BLOOD SPECIMENOrdering Facility: [facility] Address: [address] [place] [address] Performed By: #### 5 8410-2 ####[facility] LABIA [id number] [place] [address] [place] Hematocrit (Bld) [Volume fraction] 25.3 % Low 36.0-46.0 [facility] Comment on above: Order Comment: Speci men Type: BLOOD SPECIMENOrdering Facility: [facility] Address: [address] [place] [address] Performed By: #### 5 8410-2 ####[facility] LABIA [id number] [place] [address] [place] Hemoglobin (Bld) [Mass/Vol] 8.2 g/dL Low 11.5-15.5 [facility] Comment on above: Order Comment: Speci men Type: BLOOD SPECIMENOrdering Facility: [facility] Address: [address] [place] [address] Performed By: #### 5 8410-2 ####[facility] LABIA [id number] [place] [address] [place] MCH (RBC) [Entitic mass] 29.6 pg Normal 26.0-34.0 [facility] Comment on above: Order Comment: Speci men Type: BLOOD SPECIMENOrdering Facility: [facility] Address: [address] [place] [address] Performed By: #### 5 8410-2 ####[facility] LABIA [id number] [place] [address] [place] MCHC (RBC) [Mass/Vol] 32.4 g/dL Normal 30.5-36.0 [facility] Comment on above: Order Comment: Speci men Type: BLOOD SPECIMENOrdering Facility: [facility] Address: [address] [place] [address] Performed By: #### 5 8410-2 ####[facility] LABCLIA [id number] [place] [address] [place] MCV (RBC) [Entitic vol] 91.3 fL Normal 80.0-100.0 [facility] Comment on above: Order Comment: Speci men Type: BLOOD SPECIMENOrdering Facility: [facility] Address: [address] [place] [address] Performed By: #### 5 8410-2 ####[facility] LABIA [id number] [place] [address] [place] Nucleated RBC (Bld) [#/Vol] 10*3/uL Normal <0.01 [facility] Comment on above: Order Comment: Speci men Type: BLOOD SPECIMENOrdering Facility: [facility] Address: [address] [place] [address] Performed By: #### 5 8410-2 ####[facility] LABIA [id number] [place] [address] [place] Platelet mean volume (Bld) [Entitic vol] 9.2 fL Normal 9.0-12.7 [facility] Comment on above: Order Comment: Speci men Type: BLOOD SPECIMENOrdering Facility: [facility] Address: [address] [place] [address] Performed By: #### 5 8410-2 ####[facility] LABCLIA [id number] [place] [address] [place] Platelets (Bld) [#/Vol] 49 10*3/uL Low 150-400 [facility] Comment on above: Order Comment: Speci men Type: BLOOD SPECIMENOrdering Facility: [facility] Address: [address] [place] [address] Performed By: #### 5 8410-2 ####[facility] LABCLIA [id number] [place] [address] [place] RBC (Bld) [#/Vol] 2.77 10*6/uL Low 3.90-5.20 [place] Comment on above: Order Comment: Speci men Type: BLOOD SPECIMENOrdering Facility: [facility] Address: [address] [place] [address] Performed By: #### 5 8410-2 ####[facility] LABCLIA [id number] [place] [address] [place] WBC (Bld) [#/Vol] 12.87 10*3/uL High 3.70-11.00 [facility] Comment on above: Order Comment: Speci men Type: BLOOD SPECIMENOrdering Facility: [facility] Address: [address] [place] [address] Performed By: #### 5 8410-2 ####[facility] LABCLIA [id number] [place] [address] [place] Erythrocyte distribution width (RBC) [Ratio] 14.6 % Normal 11.5-15.0 [facility] Comment on above: Order Comment: Speci men Type: BLOOD SPECIMENOrdering Facility: [facility] Address: [address] [place] [address] Performed By: #### 5 8410-2, IPFR, 71427-1 ####[facility] LABCLIA [id number] [place] [address] [place] Hematocrit (Bld) [Volume fraction] 25.6 % Low 36.0-46.0 [facility] Comment on above: Order Comment: Speci men Type: BLOOD SPECIMENOrdering Facility: [facility] Address: [address] [place] [address] Performed By: #### 5 8410-2, IPFR, 32404-1 ####[facility] LABCLIA [id number] [place] [address] [place] Hemoglobin (Bld) [Mass/Vol] 8.1 g/dL Low 11.5-15.5 [facility] Comment on above: Order Comment: Speci men Type: BLOOD SPECIMENOrdering Facility: [facility] Address: [address] [place] [address] Performed By: #### 5 8410-2, IPFR, 01028-9 ####[facility] LABCLIA [id number] [place] [address] [place] MCH (RBC) [Entitic mass] 28.9 pg Normal 26.0-34.0 [facility] Comment on above: Order Comment: Speci men Type: BLOOD SPECIMENOrdering Facility: [facility] Address: [address] [place] [address] Performed By: #### 5 8410-2, IPFR, 32780-9 ####[facility] LABCLIA [id number] [place] [address] [place] MCHC (RBC) [Mass/Vol] 31.6 g/dL Normal 30.5-36.0 [facility] Comment on above: Order Comment: Speci men Type: BLOOD SPECIMENOrdering Facility: [facility] Address: [address] [place] [address] Performed By: #### 5 8410-2, IPFR, 35035-7 ####[facility] LABCLIA [id number] [place] [address] [place] MCV (RBC) [Entitic vol] 91.4 fL Normal 80.0-100.0 [facility] Comment on above: Order Comment: Speci men Type: BLOOD SPECIMENOrdering Facility: [facility] Address: [address] [place] [address] Performed By: #### 5 8410-2, IPFR, 60700-9 ####[facility] LABCLIA [id number] [place] [address] [place] Nucleated RBC (Bld) [#/Vol] 10*3/uL Normal <0.01 [facility] Comment on above: Order Comment: Speci men Type: BLOOD SPECIMENOrdering Facility: [facility] Address: [address] [place] [address] Performed By: #### 5 8410-2, IPFR, 33020-1 ####[facility] LABCLIA [id number] [place] [address] [place] Platelet mean volume (Bld) [Entitic vol] 11.0 fL Normal 9.0-12.7 [facility] Comment on above: Order Comment: Speci men Type: BLOOD SPECIMENOrdering Facility: [facility] Address: [address] [place] [address] Performed By: #### 5 8410-2, IPFR, 64540-7 ####[facility] LABCLIA [id number] [place] [address] [place] Platelets (Bld) [#/Vol] 66 10*3/uL Low 150-400 [facility] Comment on above: Order Comment: Speci men Type: BLOOD SPECIMENOrdering Facility: [facility] Address: [address] [place] [address] Performed By: #### 5 8410-2, IPFR, 17437-1 ####[facility] LABCLIA [id number] [place] [address] [place] RBC (Bld) [#/Vol] 2.80 10*6/uL Low 3.90-5.20 [place] Comment on above: Order Comment: Speci men Type: BLOOD SPECIMENOrdering Facility: [facility] Address: [address] [place] [address] Performed By: #### 5 8410-2, IPFR, 19538-8 ####[facility] LABCLIA [id number] [place] [address] [place] WBC (Bld) [#/Vol] 14.56 10*3/uL High 3.70-11.00 [facility] Comment on above: Order Comment: Speci men Type: BLOOD SPECIMENOrdering Facility: [facility] Address: [address] [place] [address] Performed By: #### 5 8410-2, IPFR, 60557-4 ####[facility] LABCLIA [id number] [place] [address] [place] CITRATED PLATELET COUNTon CITRATED PLATELET COUNT (WAM) 50 k/uL Low 150-400 [facility] Comment on above: Order Comment: Speci men Type: BLOOD SPECIMENOrdering Facility: [facility] Address: [address] [place] [address] Result Comment: Plat elet count confirmed by manual review of peripheral blood smear. No clot detected. Performed By: #### C ITPLT ####[facility] LABIA [id number] [place] [address] [place] CONSULT PROGon 01-14-2025 CONSULT PROG Normal [facility] CONSULT PROG Normal [facility] CONSULT PROG Normal [facility] Calcium.ionized [Moles/Vol]o n 01-14-2025 Calcium.ionized (Bld) [Mass/Vol] 0.94 mmol/L Low 1.08-1.30 [facility] Comment on above: Order Comment: Speci men Type: BLOOD SPECIMENOrdering Facility: [facility] Address: [address] [place] [address] Performed By: #### 1 995-0 ####[facility] LABCLIA [id number] [place] [address] [place] Calcium.ionized adjusted to pH 7.4 (Bld) [Moles/Vol] 0.93 mmol/L Low 1.08-1.30 [facility] Center Comment on above: Order Comment: Speci men Type: BLOOD SPECIMENOrdering Facility: [facility] Address: [address] [place] [address] Performed By: #### 1 995-0 ####[facility] LABCLIA [id number] [place] [address] [place] HIGH SENSITIVITY TROPONIN To n 01-14-2025 Troponin T.cardiac High sensitivity method [Mass/Vol] 21 ng/L High <12 [facility] Comment on above: Order Comment: Speci men Type: BLOOD SPECIMENOrdering Facility: [facility] Address: [address] [place] [address] Performed By: #### 4 542-7, HSTNT ####[facility] LABIA [id number] [place] [address] [place] Troponin T.cardiac High sensitivity method [Mass/Vol] 20 ng/L High <12 [facility] Comment on above: Order Comment: Speci men Type: BLOOD SPECIMENOrdering Facility: [facility] Address: [address] [place] [address] Performed By: #### H STNT ####[facility] LABIA [id number] [place] [address] [place] Troponin T.cardiac High sensitivity method [Mass/Vol] 21 ng/L High <12 [facility] Comment on above: Order Comment: Speci men Type: BLOOD SPECIMENOrdering Facility: [facility] Address: [address] [place] [address] Performed By: #### H STNT, 4542-7 ####[facility] LABIA [id number] [place] [address] [place] Haptoglob SerPl-mCncon 01-14 Haptoglobin [Mass/Vol] 164 mg/dL Normal 31-238 [facility] Comment on above: Order Comment: Speci men Type: BLOOD SPECIMENOrdering Facility: [facility] Address: [address] [place] [address] Performed By: #### 4 542-7, HSTNT ####[facility] LABIA [id number] [place] [address] [place] Haptoglobin [Mass/Vol] 132 mg/dL Normal 31-238 [facility] Comment on above: Order Comment: Speci men Type: BLOOD SPECIMENOrdering Facility: [facility] Address: [address] [place] [address] Performed By: #### H STNT, 4542-7 ####[facility] LABCLIA [id number] [place] [address] [place] Hepatic function 2000 panelo n 01-14-2025 Albumin [Mass/Vol] 2.6 g/dL Low 3.9-4.9 [facility] Comment on above: Order Comment: Speci men Type: BLOOD SPECIMENOrdering Facility: [facility] Address: [address] [place] [address] Performed By: #### 2 777-1, 48692-2, 35342-6, 58227-3 ####[facility] LABCLIA [id number] [place] [address] [place] ALP [Catalytic activity/Vol] 167 U/L High 34-123 [facility] Comment on above: Order Comment: Speci men Type: BLOOD SPECIMENOrdering Facility: [facility] Address: [address] [place] [address] Performed By: #### 2 777-1, 58554-3, 05668-8, 11162-7 ####[facility] LABCLIA [id number] [place] [address] [place] ALT [Catalytic activity/Vol] 22 U/L Normal 7-38 [facility] Comment on above: Order Comment: Speci men Type: BLOOD SPECIMENOrdering Facility: [facility] Address: [address] [place] [address] Performed By: #### 2 777-1, 26987-7, 73127-3, 92059-9 ####[facility] LABCLIA [id number] [place] [address] [place] AST [Catalytic activity/Vol] 29 U/L Normal 13-35 [facility] Comment on above: Order Comment: Speci men Type: BLOOD SPECIMENOrdering Facility: [facility] Address: [address] [place] [address] Performed By: #### 2 777-1, 33525-1, 42432-5, 94395-1 ####[facility] LABCLIA [id number] [place] [address] [place] Bilirubin [Mass/Vol] 0.3 mg/dL Normal 0.2-1.3 [facility] Comment on above: Order Comment: Speci men Type: BLOOD SPECIMENOrdering Facility: [facility] Address: [address] [place] [address] Performed By: #### 2 777-1, 51118-0, , 78280-7 ####[facility] LABCLIA [id number] [place] [address] [place] Bilirubin.conjugated [Mass/Vol] 0.2 mg/dL Normal <0.3 [facility] Comment on above: Order Comment: Speci men Type: BLOOD SPECIMENOrdering Facility: [facility] Address: [address] [place] [address] Performed By: #### 2 777-1, 42267-8, , 91749-7 ####[facility] LABCLIA [id number] [place] [address] [place] Protein [Mass/Vol] 4.2 g/dL Low 6.3-8.0 [facility] Comment on above: Order Comment: Speci men Type: BLOOD SPECIMENOrdering Facility: [facility] Address: [address] [place] [address] Performed By: #### 2 777-1, 37307-3, 63352-7, 48416-5 ####[facility] LABCLIA [id number] [place] [address] [place] IMMATURE PLATELET FRACTIONon 01-14-2025 Platelets reticulated/100 platelets Auto (Bld) 1.7 % Normal 0.9-7.2 [facility] Comment on above: Order Comment: Speci men Type: BLOOD SPECIMENOrdering Facility: [facility] Address: [address] [place] [address] Performed By: #### 5 8410-2, IPFR, 33848-3 ####[facility] [id number] [place] [address] [place] LDH SerPl-cCncon 01-14-2025 LDH [Catalytic activity/Vol] 426 U/L High 135-214 [facility] Comment on above: Order Comment: Speci men Type: BLOOD SPECIMENOrdering Facility: [facility] Address: [address] [place] [address] Result Comment: Hemo lysis present. The origin of the hemolysis, in vitro versus an in vivo hemolytic process, cannot be distinguished via this assay alone. In vitro hemolysis may lead to non-physiological (spurious) elevation in lactate dehydrogenase (LDH) results. Theresult should be interpreted in context of the clinical setting and other test results. Suggest reorder as clinically indicated. Performed By: #### 2 532-0 ####[facility] [id number] [place] [address] [place] MRA BRAIN WO IVCONon 025 MRA BRAIN WO IVCON Normal [facility] MRI BRAIN WO/W IVCONon 01-14 MRI BRAIN WO/W IVCON Normal [facility] Magnesium SerPl-mCncon 01-14 Magnesium [Mass/Vol] 1.6 mg/dL Low 1.7-2.3 [facility] Comment on above: Order Comment: Speci men Type: BLOOD SPECIMENOrdering Facility: [facility] Address: [address] [place] [address] Performed By: #### 2 777-1, 94591-9, 30147-9, 67697-8 ####[facility] LABIA [id number] [place] [address] [place] NURSING PROGon 01-14-2025 NURSING PROG Normal [facility] PT panel Coag (PPP)on 2024 INR Coag (PPP) [Relative time] 1.3 {INR} Normal 0.9-1.3 [facility] Comment on above: Order Comment: Speci men Type: BLOOD SPECIMENOrdering Facility: [facility] Address: [address] [place] [address] Result Comment: Zulay min K Antagonist (VKA) Therapeutic Range: INR 2 to 3 (Target INR of 2.5)Note: For patients treated with VKA drugs, such as warfarin, the [employer] [employer] 2012 Guideline recommends a therapeutic INR range of 2 to 3 (target INR of 2.5). This recommendation includes high-risk patients with antiphospholipid syndrome with previous arterial or venous thromboembolism, current-generation mechanical or bioprosthetic aortic heart valve replacement.Note: Patients with mechanical aortic valve replacement and additional risk factors for thromboembolic events (atrial fibrillation, previous thromboembolism, LV dysfunction, hypercoagulable conditions) or an older generation mechanical AVR (i.e., ball in-Cage) or any mechanical MVR should have a INR therapeutic range of 2.5 to 3.5 (target INR of 3).Laura GH, et al. Chest 2012, 141:7S-47SAnais RA, et al. [facility] 2017, 70: 252-289 Performed By: #### 3 4528-0 ####[facility] LABIA [id number] [place] [id number] [place] PT Coag (PPP) [Time] 14.3 s High 9.7-13.0 [facility] Comment on above: Order Comment: Speci ronna Type: BLOOD SPECIMENOrdering Facility: [facility] Address: [address] [place] [address] Performed By: #### 3 4528-0 ####[facility] LABIA [id number] [place] [address] [place] Phosphate SerPl-mCncon 01-14 Phosphate [Mass/Vol] 2.7 mg/dL Normal 2.7-4.8 [facility] Comment on above: Order Comment: Speci men Type: BLOOD SPECIMENOrdering Facility: [facility] Address: [address] [place] [address] Performed By: #### 2 777-1, 44151-9, 99184-8, 38194-4 ####[facility] LABCLIA [id number] [place] [address] [place] Retics #on 01-14-2025 Reticulocytes (Bld) [#/Vol] 0.28586 10*3/uL Normal 0.018-0.100 [facility] Comment on above: Order Comment: Speci men Type: BLOOD SPECIMENOrdering Facility: [facility] Address: [address] [place] [address] Performed By: #### 5 8410-2, IPFR, 23860-2 ####[facility] LABIA [id number] [place] [address] [place] Reticulocytes (Bld) [#/Vol]o n 01-14-2025 Reticulocytes/100 RBC (Bld) 1.3 % Normal 0.4-2.0 [facility] Comment on above: Order Comment: Speci men Type: BLOOD SPECIMENOrdering Facility: [facility] Address: [address] [place] [address] Performed By: #### 5 8410-2, IPFR, 04931-3 ####[facility] LABIA [id number] [place] [address] [place] Tacrolimus Bld-mCncon 2024 Tacrolimus (Bld) [Mass/Vol] 9.0 ng/mL Normal 5.0-20.0 [facility] Comment on above: Order Comment: Speci men Type: BLOOD SPECIMENOrdering Facility: [facility] Address: [address] [place] [address] Result Comment: Ema vidualized target levels for a given patient will [...] situation. Test performed by chemiluminescent immunoassay using PANOSOL Alinity i. Performed By: #### 1 1253-2 ####[facility] LABCLIA [id number] [place] [address] [place] XR ABDOMEN 1V SUPINEon 01-14 XR ABDOMEN 1V SUPINE Normal [facility] ANES POSTPROC EVALon 025 ANES POSTPROC EVAL Normal [facility] ANES PRE-OPon 01-13-2025 ANES PRE-OP Normal [facility] CASE MANAGEMon 01-13-2025 CASE MANAGEM Normal [facility] CBC panel Auto (Bld)on 01-13 Erythrocyte distribution width (RBC) [Ratio] 14.7 % Normal 11.5-15.0 [facility] Comment on above: Order Comment: Speci men Type: BLOOD SPECIMENOrdering Facility: [facility] Address: [address] [place] [address] Performed By: #### 5 8410-2 ####[facility] LABCLIA [id number] [place] [id number] [place] Hematocrit (Bld) [Volume fraction] 30.2 % Low 36.0-46.0 [facility] Comment on above: Order Comment: Speci men Type: BLOOD SPECIMENOrdering Facility: [facility] Address: [address] [place] [id number] Performed By: #### 5 8410-2 ####[facility] LABCLIA [id number] [place] [id number] [place] Hemoglobin (Bld) [Mass/Vol] 9.8 g/dL Low 11.5-15.5 [facility] Comment on above: Order Comment: Speci men Type: BLOOD SPECIMENOrdering Facility: [facility] Address: [address] [place] [address] Performed By: #### 5 8410-2 ####[facility] LABIA [id number] [place] [address] [place] MCH (RBC) [Entitic mass] 29.6 pg Normal 26.0-34.0 [facility] Comment on above: Order Comment: Speci men Type: BLOOD SPECIMENOrdering Facility: [facility] Address: [address] [place] [address] Performed By: #### 5 8410-2 ####[facility] LABIA [id number] [place] [address] [place] MCHC (RBC) [Mass/Vol] 32.5 g/dL Normal 30.5-36.0 [facility] Comment on above: Order Comment: Speci men Type: BLOOD SPECIMENOrdering Facility: [facility] Address: [address] [place] [address] Performed By: #### 5 8410-2 ####[facility] LABIA [id number] [place] [address] [place] MCV (RBC) [Entitic vol] 91.2 fL Normal 80.0-100.0 [facility] Comment on above: Order Comment: Speci men Type: BLOOD SPECIMENOrdering Facility: [facility] Address: [address] [place] [address] Performed By: #### 5 8410-2 ####[facility] LABIA [id number] [place] [address] [place] Nucleated RBC (Bld) [#/Vol] 10*3/uL Normal <0.01 [facility] Comment on above: Order Comment: Speci men Type: BLOOD SPECIMENOrdering Facility: [facility] Address: [address] [place] [address] Performed By: #### 5 8410-2 ####[facility] LABIA [id number] [place] [address] [place] Platelet mean volume (Bld) [Entitic vol] 10.8 fL Normal 9.0-12.7 [facility] Comment on above: Order Comment: Speci men Type: BLOOD SPECIMENOrdering Facility: [facility] Address: [address] [place] [address] Performed By: #### 5 8410-2 ####[facility] LABIA [id number] [place] [address] [place] Platelets (Bld) [#/Vol] 75 10*3/uL Low 150-400 [facility] Comment on above: Order Comment: Speci men Type: BLOOD SPECIMENOrdering Facility: [facility] Address: [address] [place] [address] Performed By: #### 5 8410-2 ####[facility] LABIA [id number] [place] [address] [place] RBC (Bld) [#/Vol] 3.31 10*6/uL Low 3.90-5.20 [place] Comment on above: Order Comment: Speci men Type: BLOOD SPECIMENOrdering Facility: [facility] Address: [address] [place] [address] Performed By: #### 5 8410-2 ####[facility] LABIA [id number] [place] [address] [place] WBC (Bld) [#/Vol] 15.91 10*3/uL High 3.70-11.00 [facility] Comment on above: Order Comment: Speci men Type: BLOOD SPECIMENOrdering Facility: [facility] Address: [address] [place] [address] Performed By: #### 5 8410-2 ####[facility] LABIA [id number] [place] [address] [place] Erythrocyte distribution width (RBC) [Ratio] 14.5 % Normal 11.5-15.0 [facility] Comment on above: Order Comment: Speci men Type: BLOOD SPECIMENOrdering Facility: [facility] Address: [address] [place] [address] Performed By: #### 5 8410-2 ####[facility] LABIA [id number] [place] [address] [place] Hematocrit (Bld) [Volume fraction] 27.9 % Low 36.0-46.0 [facility] Comment on above: Order Comment: Speci men Type: BLOOD SPECIMENOrdering Facility: [facility] Address: [address] [place] [address] Performed By: #### 5 8410-2 ####[facility] LABIA [id number] [place] [address] [place] Hemoglobin (Bld) [Mass/Vol] 9.2 g/dL Low 11.5-15.5 [facility] Comment on above: Order Comment: Speci men Type: BLOOD SPECIMENOrdering Facility: [facility] Address: [address] [place] [address] Performed By: #### 5 8410-2 ####[facility] LABIA [id number] [place] [address] [place] MCH (RBC) [Entitic mass] 29.9 pg Normal 26.0-34.0 [facility] Comment on above: Order Comment: Speci men Type: BLOOD SPECIMENOrdering Facility: [facility] Address: [address] [place] [address] Performed By: #### 5 8410-2 ####[facility] LABIA [id number] [place] [address] [place] MCHC (RBC) [Mass/Vol] 33.0 g/dL Normal 30.5-36.0 [facility] Comment on above: Order Comment: Speci men Type: BLOOD SPECIMENOrdering Facility: [facility] Address: [address] [place] [address] Performed By: #### 5 8410-2 ####[facility] LABIA [id number] [place] [address] [place] MCV (RBC) [Entitic vol] 90.6 fL Normal 80.0-100.0 [facility] Comment on above: Order Comment: Speci men Type: BLOOD SPECIMENOrdering Facility: [facility] Address: [address] [place] [address] Performed By: #### 5 8410-2 ####[facility] LABIA [id number] [place] [address] [place] Nucleated RBC (Bld) [#/Vol] 10*3/uL Normal <0.01 [facility] Comment on above: Order Comment: Speci men Type: BLOOD SPECIMENOrdering Facility: [facility] Address: [address] [place] [address] Performed By: #### 5 8410-2 ####[facility] LABIA [id number] [place] [address] [place] Platelet mean volume (Bld) [Entitic vol] 10.4 fL Normal 9.0-12.7 [facility] Comment on above: Order Comment: Speci men Type: BLOOD SPECIMENOrdering Facility: [facility] Address: [address] [place] [address] Performed By: #### 5 8410-2 ####[facility] LABIA [id number] [place] [address] [place] Platelets (Bld) [#/Vol] 85 10*3/uL Low 150-400 [facility] Comment on above: Order Comment: Speci men Type: BLOOD SPECIMENOrdering Facility: [facility] Address: [address] [place] [address] Result Comment: Resu lts checked and verified.No clot detected. Performed By: #### 5 8410-2 ####[facility] LABIA [id number] [place] [address] [place] RBC (Bld) [#/Vol] 3.08 10*6/uL Low 3.90-5.20 [place] Comment on above: Order Comment: Speci men Type: BLOOD SPECIMENOrdering Facility: [facility] Address: [address] [place] [address] Performed By: #### 5 8410-2 ####[facility] [id number] [place] [address] [place] WBC (Bld) [#/Vol] 17.41 10*3/uL High 3.70-11.00 [facility] Comment on above: Order Comment: Speci men Type: BLOOD SPECIMENOrdering Facility: [facility] Address: [address] [place] [address] Performed By: #### 5 8410-2 ####[facility] [id number] [place] [address] [place] CONSULT PROGon 01-13-2025 CONSULT PROG Normal [facility] CONSULT PROG Normal [facility] CONSULT PROG Normal [facility] Calcium.ionized [Moles/Vol]o n 01-13-2025 Calcium.ionized (Bld) [Mass/Vol] 1.03 mmol/L Low 1.08-1.30 [facility] Comment on above: Order Comment: Speci men Type: BLOOD SPECIMENOrdering Facility: [facility] Address: [address] [place] [address] Performed By: #### 1 995-0 ####[facility] LABIA [id number] [place] [address] [place] Calcium.ionized adjusted to pH 7.4 (Bld) [Moles/Vol] 1.01 mmol/L Low 1.08-1.30 [facility] Comment on above: Order Comment: Speci men Type: BLOOD SPECIMENOrdering Facility: [facility] Address: [address] [place] [address] Performed By: #### 1 995-0 ####[facility] LABCLIA [id number] [place] [address] [place] HIGH SENSITIVITY TROPONIN To n 01-13-2025 Troponin T.cardiac High sensitivity method [Mass/Vol] 20 ng/L High <12 [facility] Comment on above: Order Comment: Speci men Type: BLOOD SPECIMENOrdering Facility: [facility] Address: [address] [place] [address] Performed By: #### H STNT ####[facility] LABCLIA [id number] [place] [address] [place] Troponin T.cardiac High sensitivity method [Mass/Vol] 19 ng/L High <12 [facility] Comment on above: Order Comment: Speci men Type: BLOOD SPECIMENOrdering Facility: [facility] Address: [address] [place] [address] Performed By: #### 2 4325-3, HSTNT, 80726-7, ####[facility] LABCLIA [id number] [place] [address] [place] Hep Func 2000 Pnl SerPlon Albumin [Mass/Vol] 2.7 g/dL Low 3.9-4.9 [facility] Comment on above: Order Comment: Speci men Type: BLOOD SPECIMENOrdering Facility: [facility] Address: [address] [place] [address] Performed By: #### 2 4325-3, HSTNT, 02285-8, 00815-4 ####[facility] LABCLIA [id number] [place] [address] [place] Hepatic function 2000 panelo n 01-13-2025 ALP [Catalytic activity/Vol] 174 U/L High 34-123 [facility] Comment on above: Order Comment: Speci men Type: BLOOD SPECIMENOrdering Facility: [facility] Address: [address] [place] [address] Performed By: #### 2 4325-3, HSTNT, 43632-2, 24273-0 ####[facility] LABCLIA [id number] [place] [address] [place] ALT [Catalytic activity/Vol] 21 U/L Normal 7-38 [facility] Comment on above: Order Comment: Speci men Type: BLOOD SPECIMENOrdering Facility: [facility] Address: [address] [place] [address] Performed By: #### 2 4325-3, HSTNT, 34699-5, 39341-8 ####[facility] LABCLIA [id number] [place] [address] [place] AST [Catalytic activity/Vol] 32 U/L Normal 13-35 [facility] Comment on above: Order Comment: Speci men Type: BLOOD SPECIMENOrdering Facility: [facility] Address: [address] [place] [address] Performed By: #### 2 4325-3, HSTNT, 36514-8, 10040-9 ####[facility] LABCLIA [id number] [place] [address] [place] Bilirubin [Mass/Vol] 0.7 mg/dL Normal 0.2-1.3 [facility] Comment on above: Order Comment: Speci men Type: BLOOD SPECIMENOrdering Facility: [facility] Address: [address] [place] [address] Performed By: #### 2 4325-3, HSTNT, 94299-4, 98403-7 ####[facility] LABCLIA [id number] [place] [address] [place] Bilirubin.conjugated [Mass/Vol] 0.3 mg/dL High <0.3 [facility] Comment on above: Order Comment: Víctor friend Type: BLOOD SPECIMENOrdering Facility: [facility] Address: [address] [place] [address] Performed By: #### 2 4325-3, HSTNT, 69356-0, 13410-2 ####[facility] LABCLIA [id number] [place] [address] [place] Protein [Mass/Vol] 4.5 g/dL Low 6.3-8.0 [facility] Comment on above: Order Comment: Víctor friend Type: BLOOD SPECIMENOrdering Facility: [facility] Address: [address] [place] [address] Performed By: #### 2 4325-3, HSTNT, 33771-4, 78516-3 ####[facility] LABIA [id number] [place] [address] [place] IMMUNE FUN ASSY ATPon 2024 ATP LEVEL (IMMFUN) 343 ATP ng/mL Normal [facility] Comment on above: Order Comment: Víctor friend Type: BLOOD SPECIMENOrdering Facility: [facility] Address: [address] [place] [address] Result Comment: Assa y Range:Low Immune Cell Response <=225 ATP Level ng/mLModerate Immune Cell Response 226 - 524 ATP Level ng/mLStrong Immune Cell Response >=525 ATP Level ng/mLNOTE: This is a qualitative assay. Therefore the result does notdirectly quantify the level of immunosuppression.These results should be used in conjunction with clinicalpresentation, medical history, and other clinical indicators whenestablishing the immune status of a patient. This test has beencleared or approved for diagnostic use by the U.S. Food and DrugAdministration. [employer] ([employer]) is a registered trademark. Testing Performed At:[facility], [id number] [address], [address] [place] [address] Director: Jose Tate, PhD TIFFANY (ANSELMO)IA # [id number] Interpretation: A = Abnormal, H = High, L = Low Performed By: #### I MMFUN ####[facility] LABSCLIA [id number] [place] [address] Magnesium SerPl-[facility] Clinicon 01-13 Magnesium [Mass/Vol] 1.8 mg/dL Normal 1.7-2.3 [facility] Comment on above: Order Comment: Víctor friend Type: BLOOD SPECIMENOrdering Facility: [facility] Address: [address] [place] [address] Performed By: #### 2 4325-3, HSTNT, 61042-4, 15687-4 ####[facility] LABCLIA [id number] [place] [address] [place] NURSING PROGon 01-13-2025 NURSING PROG Normal [facility] NUTRITIONon 01-13-2025 NUTRITION Normal [facility] PT panel Coag (PPP)on 2024 INR Coag (PPP) [Relative time] 1.3 {INR} Normal 0.9-1.3 [facility] Comment on above: Order Comment: Víctor friend Type: BLOOD SPECIMENOrdering Facility: [facility] Address: [address] [place] [address] Result Comment: Zulay min K Antagonist (VKA) Therapeutic Range: INR 2 to 3 (Target INR of 2.5)Note: For patients treated with VKA drugs, such as warfarin, the [place] [employer] 2012 Guideline recommends a therapeutic INR range of 2 to 3 (target INR of 2.5). This recommendation includes high-risk patients with antiphospholipid syndrome with previous arterial or venous thromboembolism, current-generation mechanical or bioprosthetic aortic heart valve replacement.Note: Patients with mechanical aortic valve replacement and additional risk factors for thromboembolic events (atrial fibrillation, previous thromboembolism, LV dysfunction, hypercoagulable conditions) or an older generation mechanical AVR (i.e., ball in-Cage) or any mechanical MVR should have a INR therapeutic range of 2.5 to 3.5 (target INR of 3).Laura THORPE, et al. Chest 2012, 141:7S-47SAnais YIN, et al. [facility] 2017, 70: 252-289 Performed By: #### 3 4528-0, 66663-9 ####[facility] LABCLIA [id number] [place] [id number] [place] PT Coag (PPP) [Time] 14.3 s High 9.7-13.0 [facility] Comment on above: Order Comment: Speci men Type: BLOOD SPECIMENOrdering Facility: [facility] Address: [address] [place] [address] Performed By: #### 3 4528-0, 34124-5 ####[facility] LABIA [id number] [place] [address] [place] Pathology biopsy report Frederick (Tiss)on 01-13-2025 ADDENDUM 1: Normal [facility] Comment on above: Order Comment: Víctor friend Type: TISSUE SPECIMENOrdering Facility: [facility] Address: [address] [place] [address] Result Comment: Give n the background of chronic gastritis a Helicobacter pylori immunostain was performed on block A1 and is negative for Helicobacter pylori organisms.Laboratory Developed Test (LDT) Disclaimer:Performance characteristics of immunohistochemical, immunofluorescent and chromogenic in-situ hybridization tests have been determined by the performing laboratory within [facility]???s Juanito Moe Pathology and Laboratory Medicine Department ([facility], [facility], [facility], [facility], [facility], [facility], or [facility]) in a manner consistent with CLIA requirements. One or more of these tests have not been cleared or approved by the FDA. [facility] is regulated under CLIA as qualified to perform high-complexity testing. These tests are used for clinical purposes. They should not be regarded as investigational or for research. Positive and negative controls stain appropriately.Addendum electronically signed by Jake Pandey MD on 01/18/2025 at 0914 EST Performed By: #### 6 6121-5 ####[facility] LABCLIA [id number] [address] LABCLIA [id number] [address] [place] CASE REPORT Normal [facility] Comment on above: Order Comment: Speci men Type: TISSUE SPECIMENOrdering Facility: [facility] Address: [address] [place] [address] Result Comment: Surg ica Pathology Report Case: [id number] Provider: Zackery Huffman MD Collected: 01/13/2025 12:24 PMOrdering Location: [place] [address] Received: 01/13/2025 05:22 PMPathologist: Jake Pandey MDSpecimens: A) - Stomach, Biopsy, Stomach ulcer biopsy 1 - r/o Ulcer B) - Stomach, Biopsy, Erosion of anterior antrum - r/o ulcer Performed By: #### 6 6121-5 ####[facility] LABCLIA [id number] [address] LABCLIA [id number] [address] [place] FINAL DIAGNOSIS Normal [facility] Comment on above: Order Comment: Speci men Type: TISSUE SPECIMENOrdering Facility: [facility] Address: [address] [place] [address] Result Comment: A. 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 at 1218 EST Performed By: #### 6 6121-5 ####[facility] LABCLIA [id number] [address] LABCLIA [id number] [place] [address] [place] FINAL PERFORMING LAB Normal [facility] Comment on above: Order Comment: Speci men Type: TISSUE SPECIMENOrdering Facility: [facility] Address: [address] [place] [address] Result Comment: Diag nostic interpretation performed at: [facility], [address] [place] [address] CLIA# [id number] Director: Ravi Chacko MD Performed By: #### 6 6121-5 ####[facility] LABCLIA [id number] [address] LABCLIA [id number] [address] [place] GROSS DESCRIPTION Normal [facility] Comment on above: Order Comment: Speci men Type: TISSUE SPECIMENOrdering Facility: [facility] Address: [address] [place] [address] Result Comment: A. S tomach, BiopsyReceived in formalin are multiple pieces of cameron-pink and cameron-red, soft tissue aggregating to 0.7 x 0.4 x 0.2 cm. Totally submitted in one cassette.B. Stomach, BiopsyReceived in formalin are two pieces of cameron, soft tissue aggregating to 0.5 x 0.3 x 0.2 cm. Totally submitted in one cassette.JCDM January 13, 2025 6:19 PMGross examination performed at [facility], [address] [place] [address] Performed By: #### 6 6121-5 ####[facility] LABCLIA [id number] [place] [id number] [facility] LABCLIA [id number] [address] [place] Renal function 2000 panelon 01-13-2025 Anion gap [Moles/Vol] 14 mmol/L Normal 8-15 [facility] Comment on above: Order Comment: Speci men Type: BLOOD SPECIMENOrdering Facility: [facility] Address: [address] [place] [address] Performed By: #### 2 4325-3, HSTNT, 81895-2, 62562-0 ####[facility] LABCLIA [id number] [place] [address] [place] Calcium [Mass/Vol] 7.0 mg/dL Low 8.5-10.2 [facility] Comment on above: Order Comment: Speci men Type: BLOOD SPECIMENOrdering Facility: [facility] Address: [address] [place] [address] Performed By: #### 2 4325-3, HSTNT, 66846-1, ####[facility] LABCLIA [id number] [place] [address] [place] Chloride [Moles/Vol] 107 mmol/L Normal 98-107 [facility] Comment on above: Order Comment: Speci men Type: BLOOD SPECIMENOrdering Facility: [facility] Address: [address] [place] [address] Performed By: #### 2 4325-3, HSTNT, 25851-0, ####[facility] LABCLIA [id number] [place] [address] [place] CO2 [Moles/Vol] 18 mmol/L Low 22-30 [facility] Comment on above: Order Comment: Speci men Type: BLOOD SPECIMENOrdering Facility: [facility] Address: [address] [place] [address] Performed By: #### 2 4325-3, HSTNT, 82990-9, 73877-0 ####[facility] LABCLIA [id number] [place] [address] [place] Creatinine [Mass/Vol] 3.46 mg/dL High 0.58-0.96 [facility] Comment on above: Order Comment: Víctor friend Type: BLOOD SPECIMENOrdering Facility: [facility] Address: [address] [place] [address] Performed By: #### 2 4325-3, HSTNT, 61417-7, ####[facility] LABCLIA [id number] [place] [address] [place] Creatinine and Glomerular filtration rate.predicted panel (S/P/Bld) 13 mL/min/1.73m??? Low >=60 [facility] Comment on above: Order Comment: Víctor friend Type: BLOOD SPECIMENOrdering Facility: [facility] Address: [address] [place] [address] Result Comment: Kelsey mated Glomerular Filtration Rate (eGFR) is calculated using the 2020 CKD-EPI creatinine equation. This equation utilizes serum creatinine, sex, and age as parameters. The creatinine assay has traceable calibration to isotope dilution-mass spectrometry. Refer to KDIGO guidelines for clinical interpretation. In patients with unstable renal function, e.g. those with acute kidney injury, the eGFR may not accurately reflect actual GFR. Performed By: #### 2 4325-3, HSTNT, 88571-6, ####[facility] LABCLIA [id number] [place] [id number] [place] Glucose [Mass/Vol] 91 mg/dL Normal 74-99 [facility] Comment on above: Order Comment: Víctor friend Type: BLOOD SPECIMENOrdering Facility: [facility] Address: [address] [place] [address] Result Comment: The [place] [employer] (ADA) provides guidance for cutoff values for fasting glucose and random glucose. The ADA defines fasting as no caloric intake for at least 8 hours. Fasting plasma glucose results between 100 to 125 mg/dL indicate increased risk for diabetes (prediabetes).Fasting plasma glucose results greater than or equal to 126 mg/dL meet the criteria for diagnosis of diabetes. In the absence of unequivocal hyperglycemia, results should be confirmed by repeat testing. In a patient with classic symptoms of hyperglycemia or hyperglycemic crisis, random plasma glucose results greater than or equal to 200 mg/dL meet the criteria for diagnosis of diabetes.Reference: Standards of Medical Care in Diabetes 2016, [place] [employer]. Diabetes Care. 2016.39(Suppl 1). Performed By: #### 2 4325-3, HSTNT, 84695-7, ####[facility] LABCLIA [id number] [place] [address] [place] Phosphate [Mass/Vol] 3.6 mg/dL Normal 2.7-4.8 [facility] Comment on above: Order Comment: Speci men Type: BLOOD SPECIMENOrdering Facility: [facility] Address: [address] [place] [address] Performed By: #### 2 4325-3, HSTNT, , ####[facility] LABIA [id number] [place] [address] [place] Potassium [Moles/Vol] 4.0 mmol/L Normal 3.7-5.1 [facility] Comment on above: Order Comment: Speci men Type: BLOOD SPECIMENOrdering Facility: [facility] Address: [address] [place] [address] Performed By: #### 2 4325-3, HSTNT, , ####[facility] LABIA [id number] [place] [address] [place] Sodium [Moles/Vol] 139 mmol/L Normal 136-144 [facility] Comment on above: Order Comment: Speci men Type: BLOOD SPECIMENOrdering Facility: [facility] Address: [address] [place] [address] Performed By: #### 2 4325-3, HSTNT, 10312-8, ####[facility] LABCLIA [id number] [place] [address] [place] Urea nitrogen [Mass/Vol] 84 mg/dL High 7-21 [facility] Comment on above: Order Comment: Speci ronna Type: BLOOD SPECIMENOrdering Facility: [facility] Address: [address] [place] [address] Performed By: #### 2 4325-3, HSTNT, 36369-3, 53380-8 ####[facility] LABCLIA [id number] [place] [address] [place] THERAPY NTon 01-13-2025 THERAPY NT Normal [facility] THERAPY NT Normal [facility] Tacrolimus Bld-mCncon 2024 Tacrolimus (Bld) [Mass/Vol] 4.1 ng/mL Low 5.0-20.0 [facility] Comment on above: Order Comment: Víctor friend Type: BLOOD SPECIMENOrdering Facility: [facility] Address: [address] [place] [address] Result Comment: Ema vidualized target levels for a given patient will [...] Test performed by chemiluminescent immunoassay using [employer] i. Performed By: #### 1 1253-2 ####[facility] LABIA [id number] [place] [address] [place] Upper GI endoscopyon 025 Upper GI endoscopy Normal [facility] aPTT PPPon 01-13-2025 aPTT Coag (PPP) [Time] 32.8 s High 23.0-32.4 [facility] Comment on above: Order Comment: Speci men Type: BLOOD SPECIMENOrdering Facility: [facility] Address: [address] [place] [address] Performed By: #### 3 4528-0, 20677-2 ####[facility] LABCLIA [id number] [address] [address] [place] 25(OH)D3 SerPl-ncon 2024 25-hydroxyvitamin D3 [Mass/Vol] 13.6 ng/mL Low 31.0-80.0 [facility] Comment on above: Order Comment: Speci men Type: BLOOD SPECIMENOrdering Facility: [facility] Address: [address] [place] [address] Result Comment: Clas sification of 25 OH Vitamin D status:Deficiency/Insufficiency: < or = 30 ng/ml.Sufficiency/Optimal Levels: 31-80 ng/mLToxicity: > 100 ng/mL.Test performed by chemiluminescent immunoassay. Performed By: #### 1 989-3 ####[facility] LABCLIA [id number] [place] [address] [place] Basic metabolic 2000 panelon 01-12-2025 Anion gap [Moles/Vol] 13 mmol/L Normal 8-15 [facility] Comment on above: Order Comment: Speci men Type: BLOOD SPECIMENOrdering Facility: [facility] Address: [address] [place] [address] Performed By: #### 1 9123-9, 91560-8, 17912-0, 2777-1 ####[facility] LABIA [id number] [place] [address] [place] Calcium [Mass/Vol] 6.9 mg/dL Low 8.5-10.2 [facility] Comment on above: Order Comment: Speci men Type: BLOOD SPECIMENOrdering Facility: [facility] Address: [address] [place] [address] Performed By: #### 1 9123-9, 04456-2, 49412-4, 2777-1 ####[facility] LABCLIA [id number] [place] [address] [place] Chloride [Moles/Vol] 107 mmol/L Normal 98-107 [facility] Comment on above: Order Comment: Speci men Type: BLOOD SPECIMENOrdering Facility: [facility] Address: [address] [place] [address] Performed By: #### 1 9123-9, 68496-7, 47076-6, 2777-1 ####[facility] LABCLIA [id number] [address] [address] [place] CO2 [Moles/Vol] 20 mmol/L Low 22-30 [facility] Comment on above: Order Comment: Speci men Type: BLOOD SPECIMENOrdering Facility: [facility] Address: [address] [place] [address] Performed By: #### 1 9123-9, 05783-9, 63924-6, 2777-1 ####[facility] LABIA [id number] [place] [address] [place] Creatinine [Mass/Vol] 3.95 mg/dL High 0.58-0.96 [facility] Comment on above: Order Comment: Speci men Type: BLOOD SPECIMENOrdering Facility: [facility] Address: [address] [place] [address] Performed By: #### 1 9123-9, 49120-3, 72434-5, 2777- ####[facility] LABIA [id number] [place] [address] [place] Creatinine and Glomerular filtration rate.predicted panel (S/P/Bld) 11 mL/min/1.73m??? Low >=60 [facility] Comment on above: Order Comment: Speci men Type: BLOOD SPECIMENOrdering Facility: [facility] Address: [address] [place] [address] Result Comment: Kelsey mated Glomerular Filtration Rate (eGFR) is calculated using the 2020 CKD-EPI creatinine equation. This equation utilizes serum creatinine, sex, and age as parameters. The creatinine assay has traceable calibration to isotope dilution-mass spectrometry. Refer to KDIGO guidelines for clinical interpretation. In patients with unstable renal function, e.g. those with acute kidney injury, the eGFR may not accurately reflect actual GFR. Performed By: #### 1 9123-9, 17309-3, 31000-0, 2776- ####[facility] LABCLIA [id number] [place] [id number] [place] Glucose [Mass/Vol] 116 mg/dL High 74-99 [facility] Comment on above: Order Comment: Víctor friend Type: BLOOD SPECIMENOrdering Facility: [facility] Address: [address] [place] [address] Result Comment: The [place] Diabetes Association (ADA) provides guidance for cutoff values for fasting glucose and random glucose. The ADA defines fasting as no caloric intake for at least 8 hours. Fasting plasma glucose results between 100 to 125 mg/dL indicate increased risk for diabetes (prediabetes).Fasting plasma glucose results greater than or equal to 126 mg/dL meet the criteria for diagnosis of diabetes. In the absence of unequivocal hyperglycemia, results should be confirmed by repeat testing. In a patient with classic symptoms of hyperglycemia or hyperglycemic crisis, random plasma glucose results greater than or equal to 200 mg/dL meet the criteria for diagnosis of diabetes.Reference: Standards of Medical Care in Diabetes 2016, [place] [employer]. Diabetes Care. 2016.39(Suppl 1). Performed By: #### 1 9123-9, 84118-3, 17166-0, 2776-12 ####[facility] LABCLIA [id number] [place] [address] [place] Potassium [Moles/Vol] 3.4 mmol/L Low 3.7-5.1 [facility] Comment on above: Order Comment: Víctor friend Type: BLOOD SPECIMENOrdering Facility: [facility] Address: [address] [place] [address] Performed By: #### 1 9123-9, 06994-9, 43902-3, 2776- ####[facility] LABCLIA [id number] [place] [id number] [place] Sodium [Moles/Vol] 140 mmol/L Normal 136-144 [facility] Comment on above: Order Comment: Speci men Type: BLOOD SPECIMENOrdering Facility: [facility] Address: [address] [place] [address] Performed By: #### 1 9123-9, 37784-5, 39685-0, 2777-1 ####[facility] LABCLIA [id number] [place] [address] [place] Urea nitrogen [Mass/Vol] 90 mg/dL High 7-21 [facility] Comment on above: Order Comment: Speci men Type: BLOOD SPECIMENOrdering Facility: [facility] Address: [address] [place] [address] Performed By: #### 1 9123-9, 49596-2, 20512-3, 2777-1 ####[facility] LABCLIA [id number] [place] [address] [place] CASE MANAGEMon 01-12-2025 CASE MANAGEM Normal [facility] CBC panel Auto (Bld)on 01-12 Erythrocyte distribution width (RBC) [Ratio] 14.4 % Normal 11.5-15.0 [facility] Comment on above: Order Comment: Speci men Type: BLOOD SPECIMENOrdering Facility: [facility] Address: [address] [place] [address] Performed By: #### 5 8410-2 ####[facility] LABCLIA [id number] [place] [address] [place] Hematocrit (Bld) [Volume fraction] 18.6 % Low 36.0-46.0 [facility] Comment on above: Order Comment: Speci men Type: BLOOD SPECIMENOrdering Facility: [facility] Address: [address] [place] [address] Performed By: #### 5 8410-2 ####[facility] LABCLIA [id number] [place] [address] [place] Hemoglobin (Bld) [Mass/Vol] 5.9 g/dL Critically low 11.5-15.5 [facility] Comment on above: Order Comment: Speci men Type: BLOOD SPECIMENOrdering Facility: [facility] Address: [address] [place] [address] Result Comment: No c lot detected. Performed By: #### 5 8410-2 ####[facility] LABIA [id number] [place] [address] [place] MCH (RBC) [Entitic mass] 29.1 pg Normal 26.0-34.0 [facility] Comment on above: Order Comment: Speci men Type: BLOOD SPECIMENOrdering Facility: [facility] Address: [address] [place] [address] Performed By: #### 5 8410-2 ####[facility] LABIA [id number] [place] [address] [place] MCHC (RBC) [Mass/Vol] 31.7 g/dL Normal 30.5-36.0 [facility] Comment on above: Order Comment: Speci men Type: BLOOD SPECIMENOrdering Facility: [facility] Address: [address] [place] [address] Performed By: #### 5 8410-2 ####[facility] LABIA [id number] [place] [address] [place] MCV (RBC) [Entitic vol] 91.6 fL Normal 80.0-100.0 [facility] Comment on above: Order Comment: Speci men Type: BLOOD SPECIMENOrdering Facility: [facility] Address: [address] [place] [address] Performed By: #### 5 8410-2 ####[facility] LABIA [id number] [place] [address] [place] Nucleated RBC (Bld) [#/Vol] 10*3/uL Normal <0.01 [facility] Comment on above: Order Comment: Speci men Type: BLOOD SPECIMENOrdering Facility: [facility] Address: [address] [place] [address] Performed By: #### 5 8410-2 ####[facility] LABIA [id number] [place] [address] [place] Platelet mean volume (Bld) [Entitic vol] 9.9 fL Normal 9.0-12.7 [facility] Comment on above: Order Comment: Speci men Type: BLOOD SPECIMENOrdering Facility: [facility] Address: [address] [place] [address] Performed By: #### 5 8410-2 ####[facility] LABIA [id number] [place] [address] [place] Platelets (Bld) [#/Vol] 81 10*3/uL Low 150-400 [facility] Comment on above: Order Comment: Speci men Type: BLOOD SPECIMENOrdering Facility: [facility] Address: [address] [place] [address] Result Comment: No c lot detected. Performed By: #### 5 8410-2 ####[facility] [id number] [place] [address] [place] RBC (Bld) [#/Vol] 2.03 10*6/uL Low 3.90-5.20 [place] Comment on above: Order Comment: Speci men Type: BLOOD SPECIMENOrdering Facility: [facility] Address: [address] [place] [address] Performed By: #### 5 8410-2 ####[facility] [id number] [place] [address] [place] WBC (Bld) [#/Vol] 11.13 10*3/uL High 3.70-11.00 [facility] Comment on above: Order Comment: Speci men Type: BLOOD SPECIMENOrdering Facility: [facility] Address: [address] [place] [address] Performed By: #### 5 8410-2 ####[facility] LABCLIA [id number] [place] [address] [place] CONSULTon 01-12-2025 CONSULT Normal [facility] CONSULT PROGon 01-12-2025 CONSULT PROG Normal [facility] CONSULT PROG Normal [facility] CONSULT PROG Normal [facility] Calcium ?Tm Ur-mCncon 2024 Calcium Unsp time (U) [Mass/Vol] 3.8 mg/dL Normal 0.0-21.0 [facility] Comment on above: Order Comment: Speci men Type: URINE SPECIMENOrdering Facility: [facility] Address: [address] [place] [address] Performed By: #### 3 5674-1, 47094-6, 28510-2 ####[facility] LABIA [id number] [place] [address] [place] [place] Calcium.ionized [Moles/Vol]o n 01-12-2025 Calcium.ionized (Bld) [Mass/Vol] 1.07 mmol/L Low 1.08-1.30 [facility] Comment on above: Order Comment: Speci men Type: BLOOD SPECIMENOrdering Facility: [facility] Address: [address] [place] [address] Performed By: #### 1 995-0 ####[facility] LABIA [id number] [place] [address] [place] Calcium.ionized adjusted to pH 7.4 (Bld) [Moles/Vol] 1.04 mmol/L Low 1.08-1.30 [facility] Comment on above: Order Comment: Speci men Type: BLOOD SPECIMENOrdering Facility: [facility] Address: [address] [place] [address] Performed By: #### 1 995-0 ####[facility] LABIA [id number] [place] [address] [place] Calcium.ionized (Bld) [Mass/Vol] <0.50 Low 1.08-1.30 [facility] Comment on above: Order Comment: Speci men Type: BLOOD SPECIMENOrdering Facility: [facility] Address: [address] [place] [address] Performed By: #### 1 995-0 ####[facility] LABCLIA [id number] [place] [address] [place] Calcium.ionized adjusted to pH 7.4 (Bld) [Moles/Vol] Normal [facility] Comment on above: Order Comment: Speci men Type: BLOOD SPECIMENOrdering Facility: [facility] Address: [address] [place] [address] Result Comment: Raysa ured pH is <7.20. Unable to report normalized Calcium. Performed By: #### 1 995-0 ####[facility] LABIA [id number] [place] [address] [place] Creatinine Unsp time (U) [Ma ss/Vol]on 01-12-2025 Creatinine (U) [Mass/Vol] 58.2 mg/dL Normal 20.0-300.0 [facility] Comment on above: Order Comment: Speci men Type: URINE SPECIMENOrdering Facility: [facility] Address: [address] [place] [address] Performed By: #### 3 5674-1, 93454-8, 12217-6 ####[facility] LABIA [id number] [place] [address] [place] ECG COMPLETEon 01-12-2025 ECG COMPLETE Normal [facility] GLUCOSE, BLOOD (POC)on 01-12 Glucose [Mass/Vol] 95 mg/dL 74 - 99 mg/dL [facility] Comment on above: Location:[facility] lilibeth, [address] [place] [address], [facility] The Accu-Chek Inform II glucose meter has not been approved for testing on patients receiving intensive medical intervention or therapy and results from this point of care glucose test should not be used for patient management decisions in these cases. Inaccurate results may also occur from other interfering factors, such as N-acetylcysteine (blood concentrations of greater than 5mg/dL), galactose, extremes of hematocrit (<10 or >65), or high doses of ascorbic acid (vitamin C) greater than 3mg/dL. Consider alternate testing mechanisms (e.g. core lab, blood gas instrument) in the above situations. [facility] HEART/LUNG REC POST TX DSAon 01-12-2025 ALLOGEN RESULTS TO FOLLOW See Allogen report to follow Normal [facility] Comment on above: Order Comment: Speci men Type: BLOOD SPECIMENOrdering Facility: [facility] Address: [address] [place] [address] Performed By: #### H LPTCX ####[facility] [id number] [place] [address] [place] HIGH SENSITIVITY TROPONIN To n 01-12-2025 Troponin T.cardiac High sensitivity method [Mass/Vol] 17 ng/L High <12 [facility] Comment on above: Order Comment: Speci men Type: BLOOD SPECIMENOrdering Facility: [facility] Address: [address] [place] [address] Performed By: #### H STNT ####[facility] LABCLIA [id number] [place] [address] [place] Troponin T.cardiac High sensitivity method [Mass/Vol] 22 ng/L High <12 [facility] Comment on above: Order Comment: Speci men Type: BLOOD SPECIMENOrdering Facility: [facility] Address: [address] [place] [address] Performed By: #### H STNT ####[facility] LABCLIA [id number] [place] [address] [place] HISTOPLASMA AG URINEon 01-12 H. capsulatum Ag (U) [Mass/Vol] <0.2 Normal <0.2 [facility] Comment on above: Order Comment: Speci men Type: URINE SPECIMENOrdering Facility: [facility] Address: [address] [place] [address] Performed By: #### U HISTO ####[facility] LABCLIA [id number] [place] [address] [place] H. capsulatum Ag IA Ql (U) Negative Normal Negative [facility] Comment on above: Order Comment: Speci men Type: URINE SPECIMENOrdering Facility: [facility] Address: [address] [place] [address] Result Comment: Hist oplasma galactomannan antigen, urine test is used as an aid in diagnosing histoplasmosis. A negative result cannot rule out infection. Low positive results may at times be due to cross-reactivity with Blastomyces, Talaromyces marneffei, Paracoccidioides, and some Cyndi species. Clinical radiological, and epidemiological correlation is required. Performed By: #### U HISTO ####[facility] LABCLIA [id number] [place] [address] [place] HSV+VZV DNA ULICES+probe Ql (Un sp spec)on 01-12-2025 HSV 1 DNA ULICES+probe Ql (Unsp spec) Not detected Normal Not Detected [facility] Comment on above: Order Comment: Speci men Type: SWABOrdering Facility: [facility] Address: [address] [place] [address] Performed By: #### 3 3027-4 ####[facility] LABCLIA [id number] [place] [address] [place] HSV 2 DNA ULICES+probe Ql (Unsp spec) Not detected Normal Not Detected [facility] Comment on above: Order Comment: Speci men Type: SWABOrdering Facility: [facility] Address: [address] [place] [address] Performed By: #### 3 3027-4 ####[facility] LABCLIA [id number] [place] [address] [place] VZV DNA ULICES+probe Ql (Unsp spec) Not detected Normal Not Detected [facility] Comment on above: Order Comment: Speci men Type: SWABOrdering Facility: [facility] Address: [address] [place] [address] Performed By: #### 3 3027-4 ####[facility] LABIA [id number] [place] [address] [place] Hepatic function 2000 panelo n 01-12-2025 Albumin [Mass/Vol] 2.5 g/dL Low 3.9-4.9 [facility] Comment on above: Order Comment: Speci men Type: BLOOD SPECIMENOrdering Facility: [facility] Address: [address] [place] [address] Performed By: #### 1 9123-9, 46475-2, 97698-2, 2777-1 ####[facility] LABIA [id number] [place] [address] [place] ALP [Catalytic activity/Vol] 158 U/L High 34-123 [facility] Comment on above: Order Comment: Speci men Type: BLOOD SPECIMENOrdering Facility: [facility] Address: [address] [place] [address] Performed By: #### 1 9123-9, 62673-2, 46743-2, 2777-1 ####[facility] LABIA [id number] [place] [address] [place] ALT [Catalytic activity/Vol] 20 U/L Normal 7-38 [facility] Comment on above: Order Comment: Speci men Type: BLOOD SPECIMENOrdering Facility: [facility] Address: [address] [place] [address] Performed By: #### 1 9123-9, 66004-1, 10157-8, 2777-1 ####[facility] LABIA [id number] [place] [address] [place] AST [Catalytic activity/Vol] 27 U/L Normal 13-35 [facility] Comment on above: Order Comment: Speci men Type: BLOOD SPECIMENOrdering Facility: [facility] Address: [address] [place] [address] Performed By: #### 1 9123-9, 35443-2, 08286-2, 2777-1 ####[facility] LABCLIA [id number] [place] [address] [place] Bilirubin [Mass/Vol] 0.2 mg/dL Normal 0.2-1.3 [facility] Comment on above: Order Comment: Speci men Type: BLOOD SPECIMENOrdering Facility: [facility] Address: [address] [place] [address] Performed By: #### 1 9123-9, 25183-3, 44329-4, 2777-1 ####[facility] LABIA [id number] [place] [address] [place] Bilirubin.conjugated [Mass/Vol] 0.1 mg/dL Normal <0.3 [facility] Comment on above: Order Comment: Speci men Type: BLOOD SPECIMENOrdering Facility: [facility] Address: [address] [place] [address] Performed By: #### 1 9123-9, 13239-6, 35182-6, 2777-1 ####[facility] LABIA [id number] [place] [address] [place] Protein [Mass/Vol] 4.1 g/dL Low 6.3-8.0 [facility] Comment on above: Order Comment: Speci men Type: BLOOD SPECIMENOrdering Facility: [facility] Address: [address] [place] [address] Performed By: #### 1 9123-9, 05200-1, 05420-3, 2777-1 ####[facility] LABIA [id number] [place] [address] [place] IMMUNE FUN ASSY ATPon 2024 ATP LEVEL (IMMFUN) 725 ATP ng/mL Normal [facility] Comment on above: Order Comment: Speci men Type: BLOOD SPECIMENOrdering Facility: [facility] Address: [address] [place] [address] Result Comment: Assa y Range:Low Immune Cell Response <=225 ATP Level ng/mLModerate Immune Cell Response 226 - 524 ATP Level ng/mLStrong Immune Cell Response >=525 ATP Level ng/mLNOTE: This is a qualitative assay. Therefore the result does notdirectly quantify the level of immunosuppression.These results should be used in conjunction with clinicalpresentation, medical history, and other clinical indicators whenestablishing the immune status of a patient. This test has beencleared or approved for diagnostic use by the U.S. Food and DrugAdministration. [employer] (R) is a registered trademark. Testing Performed At:[facility], [address], [address] Director: Jose Tate, PhD TIFF[facility] ([facility])IA # [id number] Interpretation: A = Abnormal, H = High, L = Low Performed By: #### I MMFUN ####[facility] LABSCLIA [id number] [employer] [facility] [address] IgG [facility] 01-12-2025 IgG [Mass/Vol] 572 mg/dL Low 700-1600 [facility] Comment on above: Order Comment: Speci men Type: BLOOD SPECIMENOrdering Facility: [facility] Address: [address] [place] [address] Performed By: #### 2 465-3 ####[facility] LABCLIA [id number] [place] [address] [place] [facility] SEND OUT TST on [address] [facility] SCAN TEST RESULTS 1 View results in Scanned Documents link when available Normal [facility] Comment on above: Order Comment: Speci men Type: BLOOD SPECIMENOrdering Facility: [facility] Address: [address] [place] [address] Performed By: #### M ISC1 ####NON-INTERFACED REF LABSCLIA SEE SCANNED [facility]ULTSDAY[facility] LABCLIA [id number] [address] [place] REFERRAL LAB 1 (DROP-DOWN) Karius Normal [facility] Comment on above: Order Comment: Speci men Type: BLOOD SPECIMENOrdering Facility: [facility] Address: [address] [place] [address] Performed By: #### M ISC1 ####NON-INTERFACED REF LABSCLIA SEE SCANNED RESULTSDAY[facility] LABCLIA [id number] [place] [address] [place] TEST 1 Karius Normal [facility] Comment on above: Order Comment: Speci men Type: BLOOD SPECIMENOrdering Facility: [facility] Address: [address] [place] [address] Performed By: #### M ISC1 ####NON-INTERFACED REF LABSCLIA SEE SCANNED RESULTSDAY[facility] LABCLIA [id number] [place] [address] [place] Magnesium SerPl-mCncon 01-12 Magnesium [Mass/Vol] 2.1 mg/dL Normal 1.7-2.3 [facility] Comment on above: Order Comment: Speci men Type: BLOOD SPECIMENOrdering Facility: [facility] Address: [address] [place] [address] Performed By: #### 1 9123-9, 92696-4, 23431-1, 2777-1 ####[facility] LABCLIA [id number] [place] [address] [place] NUTRITIONon 01-12-2025 NUTRITION Normal [facility] PT panel Coag (PPP)on 2024 INR Coag (PPP) [Relative time] 1.4 {INR} High 0.9-1.3 [facility] Comment on above: Order Comment: Víctor friend Type: BLOOD SPECIMENOrdering Facility: [facility] Address: [address] [place] [address] Result Comment: Zulay min K Antagonist (VKA) Therapeutic Range: INR 2 to 3 (Target INR of 2.5)Note: For patients treated with VKA drugs, such as warfarin, the [employer] 2012 Guideline recommends a therapeutic INR range of 2 to 3 (target INR of 2.5). This recommendation includes high-risk patients with antiphospholipid syndrome with previous arterial or venous thromboembolism, current-generation mechanical or bioprosthetic aortic heart valve replacement.Note: Patients with mechanical aortic valve replacement and additional risk factors for thromboembolic events (atrial fibrillation, previous thromboembolism, LV dysfunction, hypercoagulable conditions) or an older generation mechanical AVR (i.e., ball in-Cage) or any mechanical MVR should have a INR therapeutic range of 2.5 to 3.5 (target INR of 3).Laura GH, et al. Chest 2012, 141:7S-47SNishelmer RA, et al. [facility] 2017, 70: 252-289 Performed By: #### 3 4528-0, 99722-3 ####[facility] LABIA [id number] [place] [address] [place] PT Coag (PPP) [Time] 15.0 s High 9.7-13.0 [facility] Comment on above: Order Comment: Víctor friend Type: BLOOD SPECIMENOrdering Facility: [facility] Address: [address] [place] [address] Performed By: #### 3 4528-0, 85762-1 ####[facility] [id number] [place] [address] [place] PTH-Intact [facility]02 Parathyrin.intact [Mass/Vol] 30 pg/mL Normal 15-65 [facility] Comment on above: Order Comment: Víctor friend Type: BLOOD SPECIMENOrdering Facility: [facility] Address: [address] [place] [address] Performed By: #### 2 731-8, 59715-8 ####[facility] LABCLIA [id number] [place] [address] [place] Phosphate SerPl-ncon 01-12 Phosphate [Mass/Vol] 3.9 mg/dL Normal 2.7-4.8 [facility] Comment on above: Order Comment: Speci men Type: BLOOD SPECIMENOrdering Facility: [facility] Address: [address] [place] [address] Performed By: #### 1 9123-9, 44007-9, 87066-4, 2777-1 ####[facility] LABIA [id number] [place] [address] [place] Sodium ?Tm Ur-sCncon 025 Sodium Unsp time (U) [Moles/Vol] 52 mmol/L Normal 14-216 [facility] Comment on above: Order Comment: Speci men Type: URINE SPECIMENOrdering Facility: [facility] Address: [address] [place] [address] Performed By: #### 3 5674-1, 96919-9, 36614-2 ####[facility] LABIA [id number] [place] [address] [place] THERAPY NTon 01-12-2025 THERAPY NT Normal [facility] THERAPY NT Normal [facility] Tacrolimus Bld-ncon 2024 Tacrolimus (Bld) [Mass/Vol] 4.6 ng/mL Low 5.0-20.0 [facility] Comment on above: Order Comment: Speci men Type: BLOOD SPECIMENOrdering Facility: [facility] Address: [address] [place] [address] Result Comment: Ema vidualized target levels for a given patient will [...] situation. Test performed by chemiluminescent immunoassay using PANOSOL Alinity i. Performed By: #### 2 731-8, 99949-4 ####[facility] LABCLIA [id number] [place] [address] [place] URINALYSIS, REFLEX MICROSCOP ICon 01-12-2025 Bacteria LM.HPF (Urine sed) [#/Area] Negative Normal Negative [facility] Comment on above: Order Comment: Speci men Type: URINE SPECIMENOrdering Facility: [facility] Address: [address] [place] [address] Performed By: #### L [id number] ####[facility] LABIA [id number] [place] [address] [place] Bilirubin Ql (U) Negative Normal Negative [facility] Comment on above: Order Comment: Speci men Type: URINE SPECIMENOrdering Facility: [facility] Address: [address] [place] [address] Performed By: #### L [id number] ####[facility] LABIA [id number] [place] [address] [place] Clarity (Unsp spec) Clear Normal [facility] Comment on above: Order Comment: Speci men Type: URINE SPECIMENOrdering Facility: [facility] Address: [address] [place] [address] Performed By: #### L [id number] ####[facility] LABIA [id number] [place] [address] [place] Color (U) Yellow Normal Yellow [facility] Comment on above: Order Comment: Speci men Type: URINE SPECIMENOrdering Facility: [facility] Address: [address] [place] [address] Performed By: #### L [id number] ####[facility] LABIA [id number] [place] [address] [place] Epithelial cells LM.HPF (Urine sed) [#/Area] None Seen Normal [facility] Comment on above: Order Comment: Speci men Type: URINE SPECIMENOrdering Facility: [facility] Address: [address] [place] [address] Performed By: #### L [id number] ####[facility] LABCLIA [id number] [place] [address] [place] Glucose Test strip (U) [Mass/Vol] Negative Normal Negative [facility] Comment on above: Order Comment: Speci men Type: URINE SPECIMENOrdering Facility: [facility] Address: [address] [place] [address] Performed By: #### L [id number] ####[facility] LABCLIA [id number] [place] [address] [place] Hemoglobin Ql (U) Negative Normal Negative [facility] Comment on above: Order Comment: Speci men Type: URINE SPECIMENOrdering Facility: [facility] Address: [address] [place] [address] Performed By: #### L [id number] ####[facility] LABCLIA [id number] [place] [address] [place] Hyaline casts (Urine sed) [#/Area] 1-3 /LPF Abnormal 0 /LPF [facility] Comment on above: Order Comment: Speci men Type: URINE SPECIMENOrdering Facility: [facility] Address: [address] [place] [address] Performed By: #### L [id number] ####[facility] LABCLIA [id number] [address] [place] Ketones Ql (U) Negative Normal Negative [facility] Comment on above: Order Comment: Speci men Type: URINE SPECIMENOrdering Facility: [facility] Address: [address] [place] [address] Performed By: #### L [id number] ####[facility] LABCLIA [id number] [place] [address] [place] Leukocyte esterase Test strip Ql (U) Negative Normal Negative [facility] Comment on above: Order Comment: Speci men Type: URINE SPECIMENOrdering Facility: [facility] Address: [address] [place] [address] Performed By: #### L [id number] ####[facility] LABCLIA [id number] [place] [address] [place] Nitrite Ql (U) Negative Normal Negative [facility] Comment on above: Order Comment: Speci men Type: URINE SPECIMENOrdering Facility: [facility] Address: [address] [place] [address] Performed By: #### L [id number] ####[facility] LABCLIA [id number] [place] [address] [place] pH (U) 6.0 [pH] Normal <8.5 [facility] Comment on above: Order Comment: Speci men Type: URINE SPECIMENOrdering Facility: [facility] Address: [address] [place] [address] Performed By: #### L [id number] ####[facility] LABCLIA [id number] [place] [address] [place] Protein (U) [Mass/Vol] 1+ Abnormal Negative [facility] Comment on above: Order Comment: Speci men Type: URINE SPECIMENOrdering Facility: [facility] Address: [address] [place] [address] Performed By: #### L [id number] ####[facility] LABCLIA [id number] [place] [address] [place] RBC LM.HPF (Urine sed) [#/Area] 0-2 /HPF Normal 0-2 /HPF [facility] Comment on above: Order Comment: Speci men Type: URINE SPECIMENOrdering Facility: [facility] Address: [address] [place] [address] Performed By: #### L [id number] ####[facility] [id number] [place] [address] [place] Specific gravity (U) [Rel density] 1.014 Normal 1.005-1.030 [facility] Comment on above: Order Comment: Speci men Type: URINE SPECIMENOrdering Facility: [facility] Address: [address] [place] [address] Performed By: #### L [id number] ####[facility] [id number] [place] [address] [place] Urobilinogen Ql (U) 0.2 EU/dL Normal 0.2-1.0 EU/dL [facility] Comment on above: Order Comment: Speci men Type: URINE SPECIMENOrdering Facility: [facility] Address: [address] [place] [address] Performed By: #### L [id number] ####[facility] [id number] [place] [address] [place] WBC LM.HPF (Urine sed) [#/Area] 0-5 /HPF Normal 0-5 /HPF [facility] Comment on above: Order Comment: Speci men Type: URINE SPECIMENOrdering Facility: [facility] Address: [address] [place] [address] Performed By: #### L [id number] ####[facility] [id number] [place] [address] [place] aPTT PPPon 01-12-2025 aPTT Coag (PPP) [Time] 35.8 s High 23.0-32.4 [facility] Comment on above: Order Comment: Speci men Type: BLOOD SPECIMENOrdering Facility: [facility] Address: [address] [place] [address] Performed By: #### 3 4528-0, 05707-0 ####[facility] LABCLIA [id number] [facility] [id number] [address] [place] BARTONELLA AB PANELon 2024 GA THOMASON IGG AB <1:64 Normal [facility] Comment on above: Order Comment: Speci men Type: BLOOD SPECIMENOrdering Facility: [facility] Address: [address] [place] [address] Result Comment: INTE RPRETIVE INFORMATION: Bartonella thomason Antibody, IgG Less than 1:64 ....... Negative: No significant level of Bartonella thomason IgG antibody detected. 1:64 - 1:128 ........ Equivocal: Questionable presence of Bartonella thomason IgG antibody detected. Repeat testing in 10-14 days may be helpful. 1:256 or greater ..... Positive: Presence of IgG antibody to Bartonella thomason detected, suggestive of current or past infection.A low positive suggests past exposure or infection, while highpositive results may indicate recent or current infection, but isinconclusive for diagnosis. Seroconversion between acute andconvalescent sera is considered strong evidence of recentinfection. The best evidence for infection is a significant changeon two appropriately timed specimens where both tests are done inthe same laboratory at the same time.This test was developed and its performance characteristicsdetermined by [employer]. It has not been cleared orapproved by the [place] Food and Drug Administration. This test wasperformed in a CLIA certified laboratory and is intended forclinical purposes. Performed By: #### B ARPCR, WHIPWB, BARTAB ####[facility] LABORATORIESIA [id number] [place] [address] [place] THOMASON IGM AB < 1:16 Normal [facility] Comment on above: Order Comment: Speci men Type: BLOOD SPECIMENOrdering Facility: [facility] Address: [address] [place] [address] Result Comment: INTE RPRETIVE INFORMATION: Bartonella thomason Ab, IgM Less than 1:16 ...... Negative-No significant level of Bartonella thomason IgM antibody detected. 1:16 or greater ..... Positive-Presence of IgM antibody to Bartonella thomason detected, suggestive of current or recent infection.The presence of IgM antibodies suggests recent infection. Lowlevels of IgM antibodies may occasionally persist for more than 12months post-infection.This test was developed and its performance characteristicsdetermined by [employer]. It has not been cleared orapproved by the [place] Food and Drug Administration. This test wasperformed in a CLIA certified laboratory and is intended forclinical purposes.Performed By: [facility] [place], [place] [address]Xirnvlobli Director: Jc Fine MD, PhDCLIA Number: [id number] Performed By: #### B ARPCR, WHIPWB, BARTAB ####[facility]ITAL[facility] [id number] [place] [address] BARTONELLA HENSELAE AB, IGG <1:64 Normal [facility] Comment on above: Order Comment: Speci men Type: BLOOD SPECIMENOrdering Facility: [facility] Address: [address] [place] [address] Result Comment: INTE RPRETIVE INFORMATION: Bartonella henselae Ab, IgG Less than 1:64 ....... Negative: No significant level of Bartonella henselae IgG antibody detected. 1:64 - 1:128 ......... Equivocal: Questionable presence of Bartonella henselae IgG antibody detected. Repeat testing in 10-14 days may be helpful. 1:256 or greater ..... Positive: Presence of IgG antibody to Bartonella henselae detected, suggestive of current or past infection.A low positive suggests past exposure or infection, while highpositive results may indicate recent or current infection, but areinconclusive for diagnosis. Seroconversion between acute andconvalescent sera is considered strong evidence of recentinfection. The best evidence for infection is significant changeon two appropriately timed specimens where both tests are done inthe same laboratory at the same time.This test was developed and its performance characteristicsdetermined by [employer]. It has not been cleared orapproved by the [place] Food and Drug Administration. This test wasperformed in a CLIA certified laboratory and is intended forclinical purposes. Performed By: #### B ARPCR, WHIPWB, BARTAB ####[facility]ENTERCLIA [id number] [place] [address] BARTONELLA HENSELAE AB, IGM < 1:16 Normal [facility] Comment on above: Order Comment: Speci men Type: BLOOD SPECIMENOrdering Facility: [facility] Address: [address] [place] [address] Result Comment: INTE RPRETIVE INFORMATION: Bartonella henselae Antibody, IgM Less than 1:16 ...... Negative: No significant level of Bartonella henselae IgM antibody detected. 1:16 or greater ..... Positive: Presence of IgM antibody to Bartonella henselae detected, suggestive of current or recent infection.The presence of IgM antibodies suggest recent infection, lowlevels of IgM antibodies may occasionally persist for more than 12months post infection.This test was developed and its performance characteristicsdetermined by [employer]. It has not been cleared orapproved by the [place] Food and Drug Administration. This test wasperformed in a CLIA certified laboratory and is intended forclinical purposes. Performed By: #### B ARPCR, WHIPWB, BARTAB ####[facility]IA [id number] [place] [address] BARTONELLA PCRon 01-11-2025 BARTONELLA PCR RESULT Not detected Normal [facility] Comment on above: Order Comment: Speci men Type: BLOOD SPECIMENOrdering Facility: [facility] Address: [address] [place] [address] Result Comment: NOT DETECTED - A negative result does not rule out thepresence of PCR inhibitors in the patient specimen orassay specific nucleic acid in concentrations below thelevel of detection by the assay.INTERPRETIVE INFORMATION: Bartonella Species Detection by PCRThis test was developed and its performance characteristicsdetermined by [employer]. It has not been cleared orapproved by the [place] Food and Drug Administration. This test wasperformed in a CLIA certified laboratory and is intended forclinical purposes.Performed By: [facility] [place], [place] [address]Fqawxwszso Director: Jc Fine MD, PhDCLIA Number: [id number] Performed By: #### B ARPCR, CHANG, BARTAB ####[facility]IESCLIA [id number] [place] [address] BARTONELLA PCR SOURCE Blood Normal [facility] Comment on above: Order Comment: Speci men Type: BLOOD SPECIMENOrdering Facility: [facility] Address: [address] [place] [address] Performed By: #### B ARPCR, CHANG, BARTAB ####[facility]ORATORIESCLIA [id number] [place] [address] Bacteria Bld Culton 01-11-20 25 Bacteria identified Cx Nom (Bld) CULTURE, BLOOD: No growth 5 days Normal [facility] Comment on above: Performed By: #### 6 00-7 ####[facility] LABCLIA [id number] [place] [address] [place] Bacteria identified Cx Nom (Bld) CULTURE, BLOOD: No growth 5 days Normal [facility] Comment on above: Performed By: #### 6 00-7 ####[facility] LABCLIA [id number] [place] [address] [place] CASE MGT INIT ASSESon 2024 CASE MGT INIT ASSES Normal [place] CBC W Ordered Manual Differe ntial panel (Bld)on 01-11-2025 Basophils (Bld) [#/Vol] 10*3/uL Normal <0.11 [facility] Comment on above: Order Comment: Speci men Type: BLOOD SPECIMENOrdering Facility: [facility] Address: [address] [place] [address] Performed By: #### S TFREV, 81180-1 ####[facility] LABCLIA [id number] [place] [address] [place] Basophils/100 WBC (Bld) 0.1 % Normal [facility] Comment on above: Order Comment: Speci men Type: BLOOD SPECIMENOrdering Facility: [facility] Address: [address] [place] [address] Performed By: #### S TFREV, 33197-7 ####[facility] LABCLIA [id number] [place] [address] [place] Differential cell count method Nom (Bld) Auto Normal [facility] Comment on above: Order Comment: Speci men Type: BLOOD SPECIMENOrdering Facility: [facility] Address: [address] [place] [address] Performed By: #### S TFREV, 51988-7 ####[facility] LABCLIA [id number] [place] [address] [place] Eosinophils (Bld) [#/Vol] 0.07 10*3/uL Normal <0.46 [facility] Comment on above: Order Comment: Speci men Type: BLOOD SPECIMENOrdering Facility: [facility] Address: [address] [place] [address] Performed By: #### S TFREV, 54924-5 ####[facility] LABCLIA [id number] [place] [address] [place] Eosinophils/100 WBC (Bld) 0.4 % Normal [facility] Comment on above: Order Comment: Speci men Type: BLOOD SPECIMENOrdering Facility: [facility] Address: [address] [place] [address] Performed By: #### S TFREV, 82139-1 ####[facility] LABCLIA [id number] [place] [address] [place] Erythrocyte distribution width (RBC) [Ratio] 14.7 % Normal 11.5-15.0 [facility] Comment on above: Order Comment: Speci men Type: BLOOD SPECIMENOrdering Facility: [facility] Address: [address] [place] [address] Performed By: #### S TFREV, 34922-1 ####[facility] LABCLIA [id number] [place] [address] [place] Hematocrit (Bld) [Volume fraction] 26.2 % Low 36.0-46.0 [facility] Comment on above: Order Comment: Speci men Type: BLOOD SPECIMENOrdering Facility: [facility] Address: [address] [place] [address] Performed By: #### S TFRBROCK, 29629-7 ####[facility] LABCLIA [id number] [place] [address] [place] Hemoglobin (Bld) [Mass/Vol] 8.4 g/dL Low 11.5-15.5 [facility] Comment on above: Order Comment: Speci men Type: BLOOD SPECIMENOrdering Facility: [facility] Address: [address] [place] [address] Performed By: #### S TFRBROCK, 68413-2 ####[facility] LABIA [id number] [place] [address] [place] Immature granulocytes (Bld) [#/Vol] 0.17 10*3/uL High <0.10 [facility] Comment on above: Order Comment: Speci men Type: BLOOD SPECIMENOrdering Facility: [facility] Address: [address] [place] [address] Performed By: #### S TFRBROCK, 34242-3 ####[facility] LABIA [id number] [place] [address] [place] Immature granulocytes/100 WBC (Bld) 1.0 % Normal [facility] Comment on above: Order Comment: Speci men Type: BLOOD SPECIMENOrdering Facility: [facility] Address: [address] [place] [address] Performed By: #### S TFREV, 40801-1 ####[facility] LABCLIA [id number] [place] [address] [place] Lymphocytes (Bld) [#/Vol] 0.70 10*3/uL Low 1.00-4.00 [facility] Comment on above: Order Comment: Speci men Type: BLOOD SPECIMENOrdering Facility: [facility] Address: [address] [place] [address] Performed By: #### S TFREV, 92515-4 ####[facility] LABCLIA [id number] [place] [address] [place] Lymphocytes/100 WBC (Bld) 4.3 % Normal [facility] Comment on above: Order Comment: Speci men Type: BLOOD SPECIMENOrdering Facility: [facility] Address: [address] [place] [address] Performed By: #### S TFREV, 19232-3 ####[facility] LABCLIA [id number] [place] [address] [place] MCH (RBC) [Entitic mass] 29.1 pg Normal 26.0-34.0 [facility] Comment on above: Order Comment: Speci men Type: BLOOD SPECIMENOrdering Facility: [facility] Address: [address] [place] [address] Performed By: #### S TFREV, 39939-2 ####[facility] LABCLIA [id number] [place] [address] [place] MCHC (RBC) [Mass/Vol] 32.1 g/dL Normal 30.5-36.0 [facility] Comment on above: Order Comment: Speci men Type: BLOOD SPECIMENOrdering Facility: [facility] Address: [address] [place] [address] Performed By: #### S TFREV, 67663-8 ####[facility] LABCLIA [id number] [place] [address] [place] MCV (RBC) [Entitic vol] 90.7 fL Normal 80.0-100.0 [facility] Comment on above: Order Comment: Speci men Type: BLOOD SPECIMENOrdering Facility: [facility] Address: [address] [place] [address] Performed By: #### S TFREV, 62112-1 ####[facility] LABCLIA [id number] [place] [address] [place] Monocytes (Bld) [#/Vol] 1.14 10*3/uL High <0.87 [facility] Comment on above: Order Comment: Speci men Type: BLOOD SPECIMENOrdering Facility: [facility] Address: [address] [place] [address] Performed By: #### S TFREV, 97754-8 ####[facility] LABCLIA [id number] [place] [address] [place] Monocytes/100 WBC (Bld) 7.0 % Normal [facility] Comment on above: Order Comment: Speci men Type: BLOOD SPECIMENOrdering Facility: [facility] Address: [address] [place] [address] Performed By: #### S TFREV, 10212-5 ####[facility] LABCLIA [id number] [place] [address] [place] Neutrophils (Bld) [#/Vol] 14.24 10*3/uL High 1.45-7.50 [facility] Comment on above: Order Comment: Speci men Type: BLOOD SPECIMENOrdering Facility: [facility] Address: [address] [place] [address] Performed By: #### S TFREV, 94192-5 ####[facility] LABCLIA [id number] [place] [address] [place] Neutrophils/100 WBC (Bld) 87.2 % Normal [facility] Comment on above: Order Comment: Speci men Type: BLOOD SPECIMENOrdering Facility: [facility] Address: [address] [place] [address] Performed By: #### S TFREV, 10775-1 ####[facility] LABCLIA [id number] [place] [address] [place] Nucleated RBC (Bld) [#/Vol] 10*3/uL Normal <0.01 [facility] Comment on above: Order Comment: Speci men Type: BLOOD SPECIMENOrdering Facility: [facility] Address: [address] [place] [address] Performed By: #### S TFRBROCK, 82581-3 ####[facility] LABIA [id number] [place] [address] [place] Nucleated RBC/100 WBC (Bld) [Ratio] 0.0 /100 WBC Normal [facility] Comment on above: Order Comment: Speci men Type: BLOOD SPECIMENOrdering Facility: [facility] Address: [address] [place] [address] Performed By: #### S TFRBROCK, 06062-1 ####[facility] LABIA [id number] [place] [address] [place] Platelet mean volume (Bld) [Entitic vol] 9.4 fL Normal 9.0-12.7 [facility] Comment on above: Order Comment: Speci men Type: BLOOD SPECIMENOrdering Facility: [facility] Address: [address] [place] [address] Performed By: #### S TFRBROCK, 35025-0 ####[facility] LABIA [id number] [place] [address] [place] Platelets (Bld) [#/Vol] 135 10*3/uL Low 150-400 [facility] Comment on above: Order Comment: Speci men Type: BLOOD SPECIMENOrdering Facility: [facility] Address: [address] [place] [address] Performed By: #### S TFRBROCK, 95807-5 ####[facility] LABIA [id number] [place] [address] [place] RBC (Bld) [#/Vol] 2.89 10*6/uL Low 3.90-5.20 [place] Comment on above: Order Comment: Speci men Type: BLOOD SPECIMENOrdering Facility: [facility] Address: [address] [place] [address] Performed By: #### S TFREV, 73481-0 ####[facility] LABCLIA [id number] [place] [address] [place] WBC (Bld) [#/Vol] 16.34 10*3/uL High 3.70-11.00 [facility] Comment on above: Order Comment: Speci men Type: BLOOD SPECIMENOrdering Facility: [facility] Address: [address] [place] [address] Performed By: #### S TFREV, 20749-1 ####[facility] LABCLIA [id number] [place] [address] [place] CBC panel Auto (Bld)on 01-11 Erythrocyte distribution width (RBC) [Ratio] 14.9 % Normal 11.5-15.0 [facility] Comment on above: Order Comment: Speci men Type: BLOOD SPECIMENOrdering Facility: [facility] Address: [address] [place] [address] Performed By: #### 5 8410-2 ####[facility] LABCLIA [id number] [place] [address] [place] Hematocrit (Bld) [Volume fraction] 25.7 % Low 36.0-46.0 [facility] Comment on above: Order Comment: Speci men Type: BLOOD SPECIMENOrdering Facility: [facility] Address: [address] [place] [address] Performed By: #### 5 8410-2 ####[facility] LABCLIA [id number] [place] [address] [place] Hemoglobin (Bld) [Mass/Vol] 8.4 g/dL Low 11.5-15.5 [facility] Comment on above: Order Comment: Speci men Type: BLOOD SPECIMENOrdering Facility: [facility] Address: [address] [place] [address] Performed By: #### 5 8410-2 ####[facility] LABCLIA [id number] [place] [address] [place] MCH (RBC) [Entitic mass] 28.6 pg Normal 26.0-34.0 [facility] Comment on above: Order Comment: Speci men Type: BLOOD SPECIMENOrdering Facility: [facility] Address: [address] [place] [address] Performed By: #### 5 8410-2 ####[facility] LABCLIA [id number] [place] [address] [place] MCHC (RBC) [Mass/Vol] 32.7 g/dL Normal 30.5-36.0 [facility] Comment on above: Order Comment: Speci men Type: BLOOD SPECIMENOrdering Facility: [facility] Address: [address] [place] [address] Performed By: #### 5 8410-2 ####[facility] LABIA [id number] [place] [address] [place] MCV (RBC) [Entitic vol] 87.4 fL Normal 80.0-100.0 [facility] Comment on above: Order Comment: Speci men Type: BLOOD SPECIMENOrdering Facility: [facility] Address: [address] [place] [address] Performed By: #### 5 8410-2 ####[facility] LABCLIA [id number] [place] [address] [place] Nucleated RBC (Bld) [#/Vol] 10*3/uL Normal <0.01 [facility] Comment on above: Order Comment: Speci men Type: BLOOD SPECIMENOrdering Facility: [facility] Address: [address] [place] [address] Performed By: #### 5 8410-2 ####[facility] LABCLIA [id number] [place] [address] [place] Platelet mean volume (Bld) [Entitic vol] 10.4 fL Normal 9.0-12.7 [facility] Comment on above: Order Comment: Speci men Type: BLOOD SPECIMENOrdering Facility: [facility] Address: [address] [place] [address] Performed By: #### 5 8410-2 ####[facility] LABIA [id number] [place] [address] [place] Platelets (Bld) [#/Vol] 126 10*3/uL Low 150-400 [facility] Comment on above: Order Comment: Speci men Type: BLOOD SPECIMENOrdering Facility: [facility] Address: [address] [place] [address] Performed By: #### 5 8410-2 ####[facility] LABIA [id number] [place] [address] [place] RBC (Bld) [#/Vol] 2.94 10*6/uL Low 3.90-5.20 [place] Comment on above: Order Comment: Speci men Type: BLOOD SPECIMENOrdering Facility: [facility] Address: [address] [place] [address] Performed By: #### 5 8410-2 ####[facility] LABCLIA [id number] [place] [address] [place] WBC (Bld) [#/Vol] 16.59 10*3/uL High 3.70-11.00 [facility] Comment on above: Order Comment: Speci men Type: BLOOD SPECIMENOrdering Facility: [facility] Address: [address] [place] [address] Performed By: #### 5 8410-2 ####[facility] LABCLIA [id number] [address] [address] [place] CONSULTon 01-11-2025 CONSULT Normal [facility] CONSULT Normal [facility] CONSULT Normal [facility] CONSULT Normal [facility] CRP SerPl-mCncon 01-11-2025 CRP [Mass/Vol] 2.5 mg/dL High <0.9 [facility] Comment on above: Order Comment: Speci men Type: BLOOD SPECIMENOrdering Facility: [facility] Address: [address] [place] [address] Performed By: #### 2 324-2, 2132-9, 2276-4, 41596-9, 1988-5, 37685-1, 34664-5, 2777-1 ####[facility] LABCLIA [id number] [place] [address] [place] CHEST WO IVCONon 01-11-[address] CHEST WO IVCON Normal [facility] CT FLANK WO IVCONon 01-11-[address] FLANK WO IVCON Normal [facility] CYTOMEGALOVIRUS (CMV) DNA, Q UANTITATIVE PCR, PLASMAon 01-11-2025 CMV DNA ULICES+probe [#/Vol] 464 IU/mL High [facility] Comment on above: Order Comment: Speci men Type: BLOOD SPECIMENOrdering Facility: [facility] Address: [address] [place] [address] Performed By: #### C MVQNT ####[facility] LABCLIA [id number] [address] [address] [place] CMV DNA ULICES+probe [Log #/Vol] 2.67 log IU/mL High [facility] Comment on above: Order Comment: Speci men Type: BLOOD SPECIMENOrdering Facility: [facility] Address: [address] [place] [address] Performed By: #### C MVQNT ####[facility] LABCLIA [id number] [place] [address] [place] CMV DNA ULICES+probe Qn (P) Detected Abnormal Not Detected [facility] Comment on above: Order Comment: Speci men Type: BLOOD SPECIMENOrdering Facility: [facility] Address: [address] [place] [address] Performed By: #### C MVQNT ####[facility] LABCLIA [id number] [place] [address] [place] Comprehensive metabolic 2000 panelon 01-11-2025 Albumin [Mass/Vol] 2.6 g/dL Low 3.9-4.9 [facility] Comment on above: Order Comment: Speci men Type: BLOOD SPECIMENOrdering Facility: [facility] Address: [address] [place] [address] Performed By: #### 2 324-2, 2131-9, 2275-4, 41272-1, 1988-04, , , 2776- ####[facility] LABCLIA [id number] [place] [address] [place] ALP [Catalytic activity/Vol] 166 U/L High 34-123 [facility] Comment on above: Order Comment: Speci men Type: BLOOD SPECIMENOrdering Facility: [facility] Address: [address] [place] [address] Performed By: #### 2 324-2, 2131-9, 2275-4, 87064-2, 1988-04, , , 2776- ####[facility] LABCLIA [id number] [place] [id number] [place] ALT [Catalytic activity/Vol] 24 U/L Normal 7-38 [facility] Comment on above: Order Comment: Speci men Type: BLOOD SPECIMENOrdering Facility: [facility] Address: [address] [place] [address] Performed By: #### 2 324-2, 2131-9, 2275-4, 26748-2, 1988-04, 32775-1, 17800-6, 2776- ####[facility] LABCLIA [id number] [address] [address] [place] Anion gap [Moles/Vol] 16 mmol/L High 8-15 [facility] Comment on above: Order Comment: Speci men Type: BLOOD SPECIMENOrdering Facility: [facility] Address: [address] [place] [address] Performed By: #### 2 324-2, 2131-9, 2275-4, 32887-6, 1988-04, , , 2776-12 ####[facility] LABCLIA [id number] [place] [address] [place] AST [Catalytic activity/Vol] 31 U/L Normal 13-35 [facility] Comment on above: Order Comment: Speci men Type: BLOOD SPECIMENOrdering Facility: [facility] Address: [address] [place] [address] Result Comment: Resu lts may be falsely increased due to interference from hemolysis. Suggest reorder as clinically indicated. Performed By: #### 2 324-2, 2131-9, 2275-4, , 1988-04, , , 2776- ####[facility] LABCLIA [id number] [address] [address] [place] Bilirubin [Mass/Vol] 0.2 mg/dL Normal 0.2-1.3 [facility] Comment on above: Order Comment: Speci men Type: BLOOD SPECIMENOrdering Facility: [facility] Address: [address] [place] [address] Performed By: #### 2 324-2, 2131-9, 2275-4, 41131-3, 1988-04, , , 2776- ####[facility] LABCLIA [id number] [address] [address] [place] Calcium [Mass/Vol] 6.4 mg/dL Low 8.5-10.2 [facility] Comment on above: Order Comment: Speci men Type: BLOOD SPECIMENOrdering Facility: [facility] Address: [address] [place], [place] [address] Performed By: #### 2 324-2, 2-9, 6-4, 77490-5, 1988-04, , , 2776- ####[facility] LABCLIA [id number] [place] [id number] [place] Chloride [Moles/Vol] 109 mmol/L High 98-107 [facility] Comment on above: Order Comment: Speci men Type: BLOOD SPECIMENOrdering Facility: [facility] Address: [address] [place] [address] Performed By: #### 2 324-2, 2131-9, 2275-4, 62255-3, 1988-04, , , 2776- ####[facility] LABCLIA [id number] [place] [id number] [place] CO2 [Moles/Vol] 19 mmol/L Low 22-30 [facility] Comment on above: Order Comment: Speci men Type: BLOOD SPECIMENOrdering Facility: [facility] Address: [address] [place] [address] Performed By: #### 2 324-2, 2131-9, 6-4, 81280-8, 1988-04, , , 2776- ####[facility] LABCLIA [id number] [place] [address] [place] Creatinine [Mass/Vol] 4.28 mg/dL High 0.58-0.96 [facility] Comment on above: Order Comment: Speci men Type: BLOOD SPECIMENOrdering Facility: [facility] Address: [address] [place] [address] Performed By: #### 2 324-2, 2-9, 6-4, 57679-9, 1988-04, , , 2776- ####[facility] LABCLIA [id number] [place] [address] [place] Creatinine and Glomerular filtration rate.predicted panel (S/P/Bld) 10 mL/min/1.73m??? Low >=60 [facility] Comment on above: Order Comment: Speci men Type: BLOOD SPECIMENOrdering Facility: [facility] Address: [address] [place] [address] Result Comment: Kelsey mated Glomerular Filtration Rate (eGFR) is calculated using the 2020 CKD-EPI creatinine equation. This equation utilizes serum creatinine, sex, and age as parameters. The creatinine assay has traceable calibration to isotope dilution-mass spectrometry. Refer to KDIGO guidelines for clinical interpretation. In patients with unstable renal function, e.g. those with acute kidney injury, the eGFR may not accurately reflect actual GFR. Performed By: #### 2 324-2, 2131-9, 6-4, 91182-2, 1988-04, , , 2776-12 ####[facility] LABIA [id number] [address] [address] [place] Potassium [Moles/Vol] 4.0 mmol/L Normal 3.7-5.1 [facility] Comment on above: Order Comment: Speci men Type: BLOOD SPECIMENOrdering Facility: [facility] Address: [address] [place] [id number] Performed By: #### 2 324-2, 2132-9, 6-4, 72333-2, 1988-04, , , 2776- ####[facility] LABIA [id number] [address] [address] [place] Protein [Mass/Vol] 4.2 g/dL Low 6.3-8.0 [facility] Comment on above: Order Comment: Speci men Type: BLOOD SPECIMENOrdering Facility: [facility] Address: [address] [place] [address] Performed By: #### 2 324-2, 2-9, 6-4, 65319-7, 1988-04, 15564-1, 49618-7, 2776- ####[facility] LABCLIA [id number] [place] [address] [place] Sodium [Moles/Vol] 144 mmol/L Normal 136-144 [facility] Comment on above: Order Comment: Speci men Type: BLOOD SPECIMENOrdering Facility: [facility] Address: [address] [place] [address] Performed By: #### 2 324-2, 2131-9, 6-4, 92233-5, 1988-04, , , 2776- ####[facility] LABCLIA [id number] [place] [address] [place] Urea nitrogen [Mass/Vol] 81 mg/dL High 7-21 [facility] Comment on above: Order Comment: Speci men Type: BLOOD SPECIMENOrdering Facility: [facility] Address: [address] [place] [address] Performed By: #### 2 324-2, 2131-9, 6-4, 28099-1, 1988-04, , , 2776- ####[facility] LABCLIA [id number] [place] [address] [place] Cryptoc Ag Spec Ql LAon 02- Cryptococcus sp Ag LA Ql (Unsp spec) CRYPTOCOCCUS ANTIGEN : Cryptococcal Antigen NOT DETECTED by Lateral flow immunoassay. Normal [facility] Comment on above: Performed By: #### 4 3228-6 ####[facility] LABCLIA [id number] [place] [address] [place] EBV DNA ULICES+probe (Bld) [#/V ol]on 01-11-2025 EBV DNA ULICES+probe [#/Vol] Detected Abnormal Not detected [facility] Comment on above: Order Comment: Speci men Type: BLOOD SPECIMENOrdering Facility: [facility] Address: [address] [place] [address] Result Comment: 443 Performed By: #### 3 6923-1 ####[facility] LABCLIA [id number] [place] [address] [place] EBV DNA SerPl ULICES+probe-Log# 2.65 Log IU/mL High [facility] Comment on above: Order Comment: Speci men Type: BLOOD SPECIMENOrdering Facility: [facility] Address: [address] [place] [address] Performed By: #### 3 6923-1 ####[facility] LABCLIA [id number] [place] [address] [place] ECG COMPLETEon 01-11-2025 ECG COMPLETE Normal [facility] Ferritin SerPl-mCncon 2024 Ferritin [Mass/Vol] 652.0 ng/mL High 14.7-205.1 [facility] Comment on above: Order Comment: Speci men Type: BLOOD SPECIMENOrdering Facility: [facility] Address: [address] [place] [address] Performed By: #### 2 324-2, 2132-9, 2276-4, 14495-6, 1988-5, 95490-5, 31487-3, 2777-1 ####[facility] LABCLIA [id number] [place] [address] [place] Folate SerPl-mCncon 01-11-20 25 Folate [Mass/Vol] 3.2 ng/mL Low >4.7 [facility] Comment on above: Order Comment: Speci men Type: BLOOD SPECIMENOrdering Facility: [facility] Address: [address] [place] [address] Performed By: #### 2 284-8 ####[facility] LABCLIA [id number] [place] [address] [place] GGT SerPl-cCncon 01-11-2025 Gamma glutamyl transferase [Catalytic activity/Vol] 19 U/L Normal 6-46 [facility] Comment on above: Order Comment: Speci men Type: BLOOD SPECIMENOrdering Facility: [facility] Address: [address] [place] [address] Performed By: #### 2 324-2, 2132-9, 2276-4, 88365-1, 1988-5, 04627-7, 93548-4, 2777-1 ####[facility] LABCLIA [id number] [place] [address] [place] Gas + CO Pnl BldVon 01-11-20 25 Glucose [Mass/Vol] 60 mg/dL Low 74-99 [facility] Comment on above: Order Comment: Speci men Type: VENOUS BLOOD SPECIMENOrdering Facility: [facility] Address: [address] [place] [address] Performed By: #### 2 4344-4 ####[facility] LABIA [id number] [place] [address] [place] Order Comment: Speci men Type: BLOOD SPECIMENOrdering Facility: [facility] Address: [address] [place] [address] Result Comment: The [place] [employer] (ADA) provides guidance for cutoff values for fasting glucose and random glucose. The ADA defines fasting as no caloric intake for at least 8 hours. Fasting plasma glucose results between 100 to 125 mg/dL indicate increased risk for diabetes (prediabetes).Fasting plasma glucose results greater than or equal to 126 mg/dL meet the criteria for diagnosis of diabetes. In the absence of unequivocal hyperglycemia, results should be confirmed by repeat testing. In a patient with classic symptoms of hyperglycemia or hyperglycemic crisis, random plasma glucose results greater than or equal to 200 mg/dL meet the criteria for diagnosis of diabetes.Reference: Standards of Medical Care in Diabetes 2016, [place] [employer]. Diabetes Care. 2016.39(Suppl 1). Performed By: #### 2 324-2, 2132-9, 2276-4, 46495-4, 1988-5, 25647-8, 16320-8, 2777-1 ####[facility] LABCLIA [id number] [place] [address] [place] Gas and Carbon monoxide pane l (BldV)on 01-11-2025 BASE DEFICIT, VENOUS -3 mmol/L Low -2-0 [facility] Comment on above: Order Comment: Speci men Type: VENOUS BLOOD SPECIMENOrdering Facility: [facility] Address: [address] [place] [address] Performed By: #### 2 4344-4 ####[facility] LABIA [id number] [place] [address] [place] Body temperature 98.78 [degF] Normal [facility] Comment on above: Order Comment: Speci men Type: VENOUS BLOOD SPECIMENOrdering Facility: [facility] Address: [address] [place] [address] Performed By: #### 2 4344-4 ####[facility] LABIA [id number] [place] [address] [place] Calcium.ionized (Bld) [Mass/Vol] 0.93 mmol/L Low 1.08-1.30 [facility] Comment on above: Order Comment: Speci men Type: VENOUS BLOOD SPECIMENOrdering Facility: [facility] Address: [address] [place] [address] Performed By: #### 2 4344-4 ####[facility] LABIA [id number] [place] [address] [place] Calcium.ionized adjusted to pH 7.4 (BldA) [Moles/Vol] 0.91 mmol/L Low 1.08-1.30 [facility] Comment on above: Order Comment: Speci men Type: VENOUS BLOOD SPECIMENOrdering Facility: [facility] Address: [address] [place] [address] Performed By: #### 2 4344-4 ####[facility] LABIA [id number] [place] [address] [place] Carboxyhemoglobin (BldV) [Mass fraction] 1.5 % Normal 0.0-2.0 [facility] Comment on above: Order Comment: Speci men Type: VENOUS BLOOD SPECIMENOrdering Facility: [facility] Address: [address] [place] [address] Result Comment: Carb oxyhemoglobin Reference Range for Smokers: 2.0-8.0% Performed By: #### 2 4344-4 ####[facility] LABIA [id number] [place] [address] [place] CO2 (BldV) [Partial pressure] 40 mm[Hg] Low 42-55 [facility] Comment on above: Order Comment: Speci men Type: VENOUS BLOOD SPECIMENOrdering Facility: [facility] Address: [address] [place] [address] Performed By: #### 2 4344-4 ####[facility] LABIA [id number] [place] [address] [place] CO2 adjusted to patient's actual temperature (BldV) [Partial pressure] 40 mmHg Low 42-55 [facility] Comment on above: Order Comment: Speci men Type: VENOUS BLOOD SPECIMENOrdering Facility: [facility] Address: [address] [place] [address] Performed By: #### 2 4344-4 ####[facility] LABIA [id number] [place] [address] [place] HCO3 (Bld) [Moles/Vol] 22 mmol/L Low 24-28 [facility] Comment on above: Order Comment: Speci men Type: VENOUS BLOOD SPECIMENOrdering Facility: [facility] Address: [address] [place] [address] Performed By: #### 2 4344-4 ####[facility] LABCLIA [id number] [place] [address] [place] Hematocrit (Bld) [Volume fraction] 26.9 % Low 36.0-46.0 [facility] Comment on above: Order Comment: Speci men Type: VENOUS BLOOD SPECIMENOrdering Facility: [facility] Address: [address] [place] [address] Performed By: #### 2 4344-4 ####[facility] LABIA [id number] [place] [address] [place] Hemoglobin (Bld) [Mass/Vol] 8.7 g/dL Low 11.5-15.5 [facility] Comment on above: Order Comment: Speci men Type: VENOUS BLOOD SPECIMENOrdering Facility: [facility] Address: [address] [place] [address] Performed By: #### 2 4344-4 ####[facility] LABIA [id number] [place] [address] [place] Lactate [Moles/Vol] 1.4 mmol/L Normal 0.5-2.2 [place] Comment on above: Order Comment: Speci men Type: VENOUS BLOOD SPECIMENOrdering Facility: [facility] Address: [address] [place] [address] Performed By: #### 2 4344-4 ####[facility] LABIA [id number] [place] [address] [place] Methemoglobin (Bld) [Mass fraction] 1.4 % Normal 0.0-1.5 [facility] Comment on above: Order Comment: Speci men Type: VENOUS BLOOD SPECIMENOrdering Facility: [facility] Address: [address] [place] [address] Performed By: #### 2 4344-4 ####[facility] LABIA [id number] [place] [address] [place] O2 THERAPY RA=Room Air Normal [facility] Comment on above: Order Comment: Speci men Type: VENOUS BLOOD SPECIMENOrdering Facility: [facility] Address: [address] [place] [address] Performed By: #### 2 4344-4 ####[facility] LABCLIA [id number] [address] [address] [place] Oxygen (BldV) [Partial pressure] 42 mm[Hg] Normal 35-45 [facility] Comment on above: Order Comment: Speci men Type: VENOUS BLOOD SPECIMENOrdering Facility: [facility] Address: [address] [place] [address] Performed By: #### 2 4344-4 ####[facility] LABCLIA [id number] [address] [address] [place] Oxygen adjusted to patient's actual temperature (BldV) [Partial pressure] 42 mmHg Normal 35-45 [facility] Comment on above: Order Comment: Speci men Type: VENOUS BLOOD SPECIMENOrdering Facility: [facility] Address: [address] [place] [address] Performed By: #### 2 4344-4 ####[facility] LABCLIA [id number] [address] [address] [place] Oxygen saturation in Venous blood 73 % Normal 60-85 [facility] Comment on above: Order Comment: Speci men Type: VENOUS BLOOD SPECIMENOrdering Facility: [facility] Address: [address] [place] [address] Performed By: #### 2 4344-4 ####[facility] LABCLIA [id number] [address] [address] [place] Oxyhemoglobin (BldV) [Mass fraction] 71 % Normal 60-85 [facility] Comment on above: Order Comment: Speci men Type: VENOUS BLOOD SPECIMENOrdering Facility: [facility] Address: [address] [place] [address] Performed By: #### 2 4344-4 ####[facility] LABCLIA [id number] [place] [address] [place] pH (BldV) 7.35 [pH] Normal 7.32-7.42 [facility] Comment on above: Order Comment: Speci men Type: VENOUS BLOOD SPECIMENOrdering Facility: [facility] Address: [address] [place] [address] Performed By: #### 2 4344-4 ####[facility] LABIA [id number] [place] [address] [place] pH adjusted to patient's actual temperature (BldV) 7.35 Normal 7.32-7.42 [facility] Comment on above: Order Comment: Speci men Type: VENOUS BLOOD SPECIMENOrdering Facility: [facility] Address: [address] [place] [address] Performed By: #### 2 4344-4 ####[facility] LABIA [id number] [place] [address] [place] Potassium [Moles/Vol] 3.8 mmol/L Normal 3.5-5.0 [facility] Comment on above: Order Comment: Speci men Type: VENOUS BLOOD SPECIMENOrdering Facility: [facility] Address: [address] [place] [address] Performed By: #### 2 4344-4 ####[facility] LABIA [id number] [place] [address] [place] Sodium [Moles/Vol] 141 mmol/L Normal 136-144 [facility] Comment on above: Order Comment: Speci men Type: VENOUS BLOOD SPECIMENOrdering Facility: [facility] Address: [address] [place] [address] Performed By: #### 2 4344-4 ####[facility] LABIA [id number] [place] [address] [place] H capsul Ab Ser Ql IDon 02-1 H. capsulatum Ab Immune diff Ql (S) Negative Normal Negative [facility] Comment on above: Order Comment: Speci men Type: BLOOD SPECIMENOrdering Facility: [facility] Address: [address] [place] [address] Result Comment: Hist oplasma antibody test by [employer] may be used as an aid in diagnosis of infection with the dimorphic fungus Histoplasma capsulatum. Histoplasma antibody test has low overall diagnostic sensitivity especially with localized disease. Immunodiffusion test is more specific but less sensitive than complement fixation test. Clinical and epidemiological correlation is required. Performed By: #### 5 218-3 ####[facility] LABCLIA [id number] [address] OF [facility] HISTO CAPSULATUM AGon 2024 HISTOPLASMA ANTIGEN, SERUM Not detected Normal Not Detected [facility] Comment on above: Order Comment: Speci men Type: BLOOD SPECIMENOrdering Facility: [facility] Address: [address] [place] [address] Result Comment: Perf ormed By: [employer] [place], [place] [address]Qtgcudcjzo Director: Jc Fine MD, PhDCLIA Number: [id number] Performed By: #### S HISTO ####[facility] [id number] [place] [address] HISTOPLASMA ANTIGEN, SERUM INTERP Not detected Normal Not Detected [facility] Comment on above: Order Comment: Speci men Type: BLOOD SPECIMENOrdering Facility: [facility] Address: [address] [place] [address] Result Comment: INTE RPRETIVE INFORMATION: Histoplasma Antigen Quantitative by EIA,SerumLess than 0.19 ng/mL = Not Detected0.19-60.0 ng/mL = DetectedGreater than 60.0 ng/mL = Detected (above the limit ofquantification).The quantitative range of this assay is 0.19-60.0 ng/mL. Antigenconcentrations greater than 60.0 ng/mL fall outside the linearrange of the assay and cannot be accurately quantified.This EIA test should be used in conjunction with other diagnosticprocedures, including microbiological culture, histologicalexamination of biopsy samples, and/or radiographic evidence, toaid in the diagnosis of histoplasmosis.Crossreactivity with Blastomyces dermatiditis, Coccidioidesimmitis and possibly Talaromyces marneffei have been observed withthis EIA. Other clinically and geographically relevant endemicmycoses should be considered in the case of a positive test result.This test was developed and its performance characteristicsdetermined by [employer]. It has not been cleared orapproved by the [place] Food and Drug Administration. This test wasperformed in a CLIA certified laboratory and is intended forclinical purposes. Performed By: #### S HISTO ####[facility] [id number] [place] [address] HISTOPLASMA AB CFon 01-11-20 25 HISTOPLASMA MYCELIA, CF <1:8 Normal <1:8 [facility] Comment on above: Order Comment: Speci men Type: BLOOD SPECIMENOrdering Facility: [facility] Address: [address] [place] [address] Result Comment: INTE RPRETIVE INFORMATION: Histoplasma Mycelia Antibodies by [employer]STRUCTION [employer]WORK[employer] titer of 1:8 or greater is generally considered presumptiveevidence of histoplasmosis. A titer of 1:32 or greater or risingtiters indicate strong presumptive evidence of histoplasmosis.Cross reactions, usually at lower titers, may occur with otherfungal diseases. Performed By: #### H ISTCF ####[facility] [id number] [place] [address] HISTOPLASMA YEAST, CF <1:8 Normal <1:8 [facility] Comment on above: Order Comment: Speci men Type: BLOOD SPECIMENOrdering Facility: [facility] Address: [address] [place] [address] Result Comment: INTE RPRETIVE INFORMATION: Histoplasma Yeast Antibodies by [employer]STRU[employer] IRONWORKER HELPER titer of 1:8 or greater is generally considered presumptiveevidence of histoplasmosis. A titer of 1:32 or greater or risingtiters indicate strong presumptive evidence of histoplasmosis.Cross reactions, usually at lower titers, may occur with otherfungal diseases.Performed By: [employer] [place], [place] [address]Vhhdpyvlgx Director: Jc Fine MD, PhDCLIA Number: [id number] Performed By: #### H [facility] ####[facility] [id number] [place] [address] HISTORY PHYSICALon HISTORY PHYSICAL Normal [facility] Iron and Iron binding capaci ty panelon 01-11-2025 Iron [Mass/Vol] 74 ug/dL Normal 41-186 [facility] Comment on above: Order Comment: Speci men Type: BLOOD SPECIMENOrdering Facility: [facility] Address: [address] [place] [address] Performed By: #### 2 324-2, 2131-9, 2275-, , 1988-04, , , 2776- ####[facility] LABCLIA [id number] [place] [address] [place] Iron binding capacity [Mass/Vol] 130 ug/dL Low 232-386 [facility] Comment on above: Order Comment: Speci men Type: BLOOD SPECIMENOrdering Facility: [facility] Address: [address] [place] [address] Performed By: #### 2 324-2, 9, 2275-4, , 1988-04, , , 2776-12 ####[facility] LABCLIA [id number] [place] [id number] [place] Iron/TIBC [Molar ratio] 56.9 % Normal 15.0-57.0 [facility] Comment on above: Order Comment: Speci men Type: BLOOD SPECIMENOrdering Facility: [facility] Address: [address] [place] [address] Performed By: #### 2 324-2, 2131-9, 2275-4, 10563-1, 1988-04, , , 2776- ####[facility] LABCLIA [id number] [place] [address] [place] Magnesium SerPl-mCncon 01-11 Magnesium [Mass/Vol] 1.6 mg/dL Low 1.7-2.3 [facility] Comment on above: Order Comment: Speci men Type: BLOOD SPECIMENOrdering Facility: [facility] Address: [address] [place] [address] Performed By: #### 2 324-2, 2132-9, 2276-4, 45230-7, 1988-5, 41371-8, 24829-5, 2777-1 ####[facility] LABCLIA [id number] [place] [address] [place] Microorganism Spec Culton Microorganism identified Cx Nom (Unsp spec) CULTURE, FUNGAL: No Fungus isolated after 28 days Normal [facility] Comment on above: Performed By: #### 1 1475-1 ####[facility] LABCLIA [id number] [place] [address] [place] NURSING PROGon 01-11-2025 NURSING PROG Normal [facility] NURSING PROG Normal [facility] PATHOLOGIST INTERPRETATION C BC/DIFFon 01-11-2025 Drawbridge Operator review [place] (Unsp spec) [Interp] No review performed. Normal [facility] Comment on above: Order Comment: Speci men Type: BLOOD SPECIMENOrdering Facility: [facility] Address: [address] [place] [address] Performed By: #### S IVY, 27644-7 ####[facility] LABCLIA [id number] [place] [address] [place] STAFF REVIEW, CBCDIF Normal [facility] Comment on above: Order Comment: Speci men Type: BLOOD SPECIMENOrdering Facility: [facility] Address: [address] [place] [address] Performed By: #### S IVY, 02745-8 ####[facility] LABCLIA [id number] [place] [address] [place] PT panel Coag (PPP)on 2024 INR Coag (PPP) [Relative time] 1.5 {INR} High 0.9-1.3 [facility] Comment on above: Order Comment: Víctor friend Type: BLOOD SPECIMENOrdering Facility: [facility] Address: [address] [place] [address] Result Comment: Zulay min K Antagonist (VKA) Therapeutic Range: INR 2 to 3 (Target INR of 2.5)Note: For patients treated with VKA drugs, such as warfarin, the [place] [employer] 2012 Guideline recommends a therapeutic INR range of 2 to 3 (target INR of 2.5). This recommendation includes high-risk patients with antiphospholipid syndrome with previous arterial or venous thromboembolism, current-generation mechanical or bioprosthetic aortic heart valve replacement.Note: Patients with mechanical aortic valve replacement and additional risk factors for thromboembolic events (atrial fibrillation, previous thromboembolism, LV dysfunction, hypercoagulable conditions) or an older generation mechanical AVR (i.e., ball in-Cage) or any mechanical MVR should have a INR therapeutic range of 2.5 to 3.5 (target INR of 3).Alexsandertt GH, et al. Chest 2012, 141:7S-47SNishimura RA, et al. [facility] 2017, 70: 252-289 Performed By: #### 3 4528-0, 35381-6 ####[facility] LABCLIA [id number] [place] [address] [place] PT Coag (PPP) [Time] 15.4 s High 9.7-13.0 [facility] [facility] Comment on above: Order Comment: Speci men Type: BLOOD SPECIMENOrdering Facility: [facility] Address: [address] [place] [address] Performed By: #### 3 4528-0, 92574-7 ####[facility] LABCLIA [id number] [place] [address] [place] INR Coag (PPP) [Relative time] 1.5 {INR} High 0.9-1.3 [facility] Comment on above: Order Comment: Víctor friend Type: BLOOD SPECIMENOrdering Facility: [facility] Address: [address] [place] [address] Result Comment: Zulay min K Antagonist (VKA) Therapeutic Range: INR 2 to 3 (Target INR of 2.5)Note: For patients treated with VKA drugs, such as warfarin, the [employer] 2012 Guideline recommends a therapeutic INR range of 2 to 3 (target INR of 2.5). This recommendation includes high-risk patients with antiphospholipid syndrome with previous arterial or venous thromboembolism, current-generation mechanical or bioprosthetic aortic heart valve replacement.Note: Patients with mechanical aortic valve replacement and additional risk factors for thromboembolic events (atrial fibrillation, previous thromboembolism, LV dysfunction, hypercoagulable conditions) or an older generation mechanical AVR (i.e., ball in-Cage) or any mechanical MVR should have a INR therapeutic range of 2.5 to 3.5 (target INR of 3).Laura GH, et al. Chest 2012, 141:7S-47SNishimura RA, et al. [facility] 2017, 70: 252-289 Performed By: #### 3 4528-0 ####[facility] [id number] [place] [address] [place] PT Coag (PPP) [Time] 16.1 s High 9.7-13.0 [facility] Comment on above: Order Comment: Víctor friend Type: BLOOD SPECIMENOrdering Facility: [facility] Address: [address] [place] [address] Performed By: #### 3 4528-0 ####[facility] [id number] [place] [address] [place] Phosphate SerPl-mCncon 01-11 Phosphate [Mass/Vol] 4.3 mg/dL Normal 2.7-4.8 [facility] Comment on above: Order Comment: Víctor friend Type: BLOOD SPECIMENOrdering Facility: [facility] Address: [address] [place] [address] Performed By: #### 2 324-2, 2132-9, 2276-4, 94234-3, 1988-5, 43707-5, 40169-9, 2777-1 ####[facility] LABCLIA [id number] [place] [address] [place] Procalcitonin SerPl-mCncon 0 01-11-2025 Procalcitonin [Mass/Vol] 0.22 ng/mL High <0.09 [facility] Comment on above: Order Comment: Speci men Type: BLOOD SPECIMENOrdering Facility: [facility] Address: [address] [place] [address] Result Comment: For a guided interpretation of test results, please visit the Change in Procalcitonin Calculator, [email or web address]. Performed By: #### 3 3959-8 ####[facility] LABCLIA [id number] [place] [address] [place] THERAPY NTon 01-11-2025 THERAPY NT Normal [facility] TYPE + SCREENon 01-11-2025 ABO O Normal [facility] Comment on above: Order Comment: Speci men Type: BLOOD SPECIMENOrdering Facility: [facility] Address: [address] [place] [address] Performed By: #### T SCR ####[facility] BLOOD BANKIA [id number] [place] [address] [place] Rh Nom (Bld) Negative Normal [facility] Comment on above: Order Comment: Speci men Type: BLOOD SPECIMENOrdering Facility: [facility] Address: [address] [place] [address] Performed By: #### T SCR ####[facility] BLOOD BANKIA [id number] [place] [address] [place] TYPE AND SCREEN EXPIRATION 01/14/2025 23:59 Normal [facility] Comment on above: Order Comment: Speci men Type: BLOOD SPECIMENOrdering Facility: [facility] Address: [address] [place] [address] Performed By: #### T SCR ####[facility] BLOOD BANKCLIA [id number] [place] [address] [place] Vit B12 SerPl-mCncon 025 Cobalamin (Vitamin B12) [Mass/Vol] 870 pg/mL Normal 232-1245 [facility] Comment on above: Order Comment: Speci men Type: BLOOD SPECIMENOrdering Facility: [facility] Address: [address] [place] [address] Performed By: #### 2 324-2, 2132-9, 6-4, 46527-5, 1987-, 44070-9, 97642-9, 2777-1 ####[facility] LABCLIA [id number] [place] WHIPPLE'S PCRon 01-11-2025 Specimen source Nom (Unsp spec) Plasma Normal [facility] Comment on above: Order Comment: Speci men Type: BLOOD SPECIMENOrdering Facility: [facility] Address: [address] [place] [address] Performed By: #### B ARPCR, WHIPWB, BARTAB ####[facility]IES[facility] [id number] [place] [address] WHIPPLE'S PCR RESULT (WHIPWB) Not detected Normal [facility] Comment on above: Order Comment: Speci men Type: BLOOD SPECIMENOrdering Facility: [facility] Address: [address] [place] [address] Result Comment: NOT DETECTED - A negative result does not rule out thepresence of PCR inhibitors in the patient specimen orassay specific nucleic acid in concentrations below thelevel of detection by the assay.INTERPRETIVE INFORMATION: Tropheryma whipplei PCRThis test was developed and its performance characteristicsdetermined by [facility]. It has not been cleared orapproved by the [place] Food and Drug Administration. This test wasperformed in a CLIA certified laboratory and is intended forclinical purposes.Performed By: [facility] [place], [place] [id number] Director: Jc Fine MD, PhDCLIA Number: [id number] Performed By: #### B REGINALDOPCR, SADIEWB, BARTAB ####[facility]IESCL[facility] [id number] [place] [address] XR CHEST 1V FRONTAL PORTon 0 01-11-2025 XR CHEST 1V FRONTAL PORT Normal [facility] aPTT PPPon 01-11-2025 aPTT Coag (PPP) [Time] 37.3 s High 23.0-32.4 [facility] Comment on above: Order Comment: Speci men Type: BLOOD SPECIMENOrdering Facility: [facility] Address: [address] [place] [address] Performed By: #### 3 4528-0, 05220-2 ####[facility] LABCLIA [id number] [facility] [id number] OF [place] 30on 01-10-2025 30 The patient is Moder ately Unstable - Medium risk of patient condition declining or worsening The patient's goals for the shift include rest, comfort The clinical goals for the shift include VSS, tx to [facility] Over the shift, the patient did not make progress toward the following goals. Barriers to progression include transfer to [facility]. Recommendations to address these barriers include making changes to the treatment plan as needed. Problem: Pain - Adult Goal: Verbalizes/displays adequate comfort level or baseline comfort level Outcome: Progressing Flowsheets (Taken 01/10/20252025) Verbalizes/displays adequate comfort level or baseline comfort level: Encourage patient to monitor pain and request assistance Assess pain using appropriate pain scale Administer analgesics based on type and severity of pain and evaluate response Implement non-pharmacological measures as appropriate and evaluate response Consider cultural and social influences on pain and pain management Problem: Safety - Adult Goal: Free from fall injury Outcome: Progressing Flowsheets (Taken 01/10/20252025) Free from fall injury: Assess patient frequently for physical needs Identify cognitive and physical deficits and behaviors that affect risk of falls Mcguffey fall precautions as indicated by assessment Educate patient/family on patient safety, including physical limitations Instruct patient to call for assistance with activity based on assessment Modify environment to reduce risk of injury Problem: Discharge Planning Goal: Discharge to home or other facility with appropriate resources Outcome: Progressing Flowsheets (Taken 01/10/20252025) Discharge to home or other facility with appropriate resources: Identify barriers to discharge with patient and caregiver Arrange for needed discharge resources and transportation as appropriate Identify discharge learning needs (meds, wound care, etc) Problem: Chronic Conditions and Co-morbidities Goal: Patient's chronic conditions and co-morbidity symptoms are monitored and maintained or improved Outcome: Progressing Flowsheets (Taken 01/10/20252025) Care Plan - Patient's Chronic Conditions and Co-Morbidity Symptoms are Monitored and Maintained or Improved: Monitor and assess patient's chronic conditions and comorbid symptoms for stability, deterioration, or improvement Collaborate with multidisciplinary team to address chronic and comorbid conditions and prevent exacerbation or deterioration Normal [facility] 30 The patient is Moder ately Unstable - Medium risk of patient condition declining or worsening The patient's goals for the shift include rest/comfort/ The clinical goals for the shift include stable vs/rest/comfort Problem: Pain - Adult Goal: Verbalizes/displays adequate comfort level or baseline comfort level Outcome: Progressing Flowsheets (Taken 01/10/2025807) Verbalizes/displays adequate comfort level or baseline comfort level: Encourage patient to monitor pain and request assistance Assess pain using appropriate pain scale Implement non-pharmacological measures as appropriate and evaluate response Notify Licensed Independent Practitioner if interventions unsuccessful or patient reports new pain Consider cultural and social influences on pain and pain management Administer analgesics based on type and severity of pain and evaluate response Problem: Safety - Adult Goal: Free from fall injury Outcome: Progressing Flowsheets (Taken 01/10/2025807) Free from fall injury: Assess patient frequently for physical needs Mcguffey fall precautions as indicated by assessment Educate patient/family on patient safety, including physical limitations Modify environment to reduce risk of injury Consider OT/PT consult to assist with strengthening/mobility Instruct patient to call for assistance with activity based on assessment Identify cognitive and physical deficits and behaviors that affect risk of falls Problem: Discharge Planning Goal: Discharge to home or other facility with appropriate resources Outcome: Progressing Flowsheets (Taken 01/10/2025807) Discharge to home or other facility with appropriate resources: Identify barriers to discharge with patient and caregiver Arrange for needed discharge resources and transportation as appropriate Identify discharge learning needs (meds, wound care, etc) Arrange for interpreters to assist at discharge as needed Refer to discharge planning if patient needs post-hospital services based on physician order or complex needs related to functional status, cognitive ability or social support system Problem: Chronic Conditions and Co-morbidities Goal: Patient's chronic conditions and co-morbidity symptoms are monitored and maintained or improved Outcome: Progressing Flowsheets (Taken 01/10/2025807) Care Plan - Patient's Chronic Conditions and Co-Morbidity Symptoms are Monitored and Maintained or Improved: Monitor and assess patient's chronic conditions and comorbid symptoms for stability, deterioration, or improvement Collaborate with multidisciplinary team to address chronic and comorbid conditions and prevent exacerbation or deterioration Update acute care plan with appropriate goals if chronic or comorbid symptoms are exacerbated and prevent overall improvement and discharge Normal [facility] 30 The patient is Moder ately Stable - Low risk of patient condition declining or worsening The patient's goals for the shift include rest/comfort The clinical goals for the shift include safety, VSS, rest Over the shift, the patient did not make progress toward the following goals. Barriers to progression include AMS, Acidemia, DREW. Recommendations to address these barriers include making changes to the treatment plan as needed. Problem: Pain - Adult Goal: Verbalizes/displays adequate comfort level or baseline comfort level Outcome: Progressing Flowsheets (Taken 01/10/202532) Verbalizes/displays adequate comfort level or baseline comfort level: Encourage patient to monitor pain and request assistance Assess pain using appropriate pain scale Administer analgesics based on type and severity of pain and evaluate response Implement non-pharmacological measures as appropriate and evaluate response Consider cultural and social influences on pain and pain management Problem: Safety - Adult Goal: Free from fall injury Outcome: Progressing Flowsheets (Taken 01/10/202532) Free from fall injury: Assess patient frequently for physical needs Identify cognitive and physical deficits and behaviors that affect risk of falls Mcguffey fall precautions as indicated by assessment Educate patient/family on patient safety, including physical limitations Instruct patient to call for assistance with activity based on assessment Modify environment to reduce risk of injury Problem: Discharge Planning Goal: Discharge to home or other facility with appropriate resources Outcome: Progressing Flowsheets (Taken 01/10/202532) Discharge to home or other facility with appropriate resources: Identify barriers to discharge with patient and caregiver Arrange for needed discharge resources and transportation as appropriate Identify discharge learning needs (meds, wound care, etc) Problem: Chronic Conditions and Co-morbidities Goal: Patient's chronic conditions and co-morbidity symptoms are monitored and maintained or improved Outcome: Progressing Flowsheets (Taken 01/10/2025 003) Care Plan - Patient's Chronic Conditions and Co-Morbidity Symptoms are Monitored and Maintained or Improved: Monitor and assess patient's chronic conditions and comorbid symptoms for stability, deterioration, or improvement Collaborate with multidisciplinary team to address chronic and comorbid conditions and prevent exacerbation or deterioration Normal [facility] BASIC METABOLIC PANELon 02-0 Anion gap [Moles/Vol] 13 mmol/L Normal 7-20 [facility] Comment on above: Performed By: #### L [id number] ####[facility] ([facility])[address] [place] [address] Calcium [Mass/Vol] 6.8 mg/dL Low 8.6-10.[address] [facility] Comment on above: Performed By: #### L [id number] ####[facility] ([facility])[address] [place] [address] Chloride [Moles/Vol] 116 mmol/L High 98-107 [facility] Comment on above: Performed By: #### L [id number] ####[facility] ([facility])[address] [place] [address] CO2 [Moles/Vol] 15 mmol/L Low 21-31 [facility] Comment on above: Performed By: #### L [id number] ####[facility] ([facility])[address] [place] [address] Creatinine [Mass/Vol] 4.51 mg/dL High 0.60-1.20 [facility] Comment on above: Performed By: #### L [id number] ####[facility] ([facility])[address] [facility] [place] [address] GLOMERULAR FILTRATION RATE ML/MIN/1.73 SQ M.PREDICTED 9.3 mL/min/1.73m*2 Low >60.0 [facility] Comment on above: Result Comment: The [facility]???s estimated glomerular filtration rate (eGFR) will no longer include consideration of race in its calculation. The National Kid[employer] Foundation???s eGFR Task Force developed new recommendations for the estimation of the glomerular filtration rate in the [place] They recommend immediate implementation of the new equation refit without the race variable in all laboratories because the calculation does not include race. In addition to not including race in the calculation and reporting, it included diversity in its development, and has acceptable performance characteristics and potential consequences that do not disproportionately affect any one group of individuals. Performed By: #### L AB15 ####[facility] ([facility])[address] [place] [address] Glucose [Mass/Vol] 77 mg/dL Normal 70-[address] [facility] Comment on above: Performed By: #### L [id number] ####[facility] ([facility])[address] [place] [address] Potassium [Moles/Vol] 4.3 mmol/L Normal 3.5-5.1 [facility] Comment on above: Performed By: #### L [id number] ####[facility] ([facility])[address] [place] [address] Sodium [Moles/Vol] 140 mmol/L Normal 136-[address] [facility] Comment on above: Performed By: #### L [id number] ####[facility] ([facility])[address] [place] [address] Urea nitrogen [Mass/Vol] 85 mg/dL High 7-25 [facility] Comment on above: Performed By: #### L [id number] ####[facility] ([facility])[address] [place] [address] UREA NITROGEN/CREATININE (MASS RATIO) IN SER/PLAS 18.8 Normal [facility] Comment on above: Performed By: #### L [id number] ####[facility] ([facility])[address] [place] [address] CBC WITH AUTO DIFFERENTIALon 01-10-2025 Erythrocyte distribution width (RBC) [Ratio] 15.1 % High 11.5-15.0 [facility] Comment on above: Performed By: #### L [id number] ####[facility] ([facility])[address] [place] [address] ERYTHROCYTE MEAN CORPUSCULAR HEMOGLOBIN CONCENTRATION (G/DL) BY AUTOMATED 32.0 g/dL Normal 32.0-35.0 [facility] Comment on above: Performed By: #### L [id number] ####[facility] ([facility])[address] [place] [address] Hematocrit (Bld) [Volume fraction] 30.3 % Low 36.0-48.0 [facility] Comment on above: Performed By: #### L [id number] ####[facility] ([facility])[address] [place] [address] Hemoglobin (Bld) [Mass/Vol] 9.7 g/dL Low 12.0-15.0 [facility] Comment on above: Performed By: #### L [id number] ####[facility] ([facility])[address] [place] [address] MCH (RBC) [Entitic mass] 28.7 pg Normal 27.0-33.0 [facility] Comment on above: Performed By: #### L [id number] ####[facility] ([facility])[address] [place] [address] MCV (RBC) [Entitic vol] 89.6 fL Normal 82.0-98.0 [facility] Comment on above: Performed By: #### L [id number] ####[facility] ([facility])[address] [place] [address] NRBC (PER 100 WBCS) BY AUTOMATED COUNT 0.0 % Normal 0 [facility] Comment on above: Performed By: #### L [id number] ####[facility] ([facility])[address] [place] [address] PLATELETS (10*3/UL) IN BLOOD AUTOMATED COUNT 196 10*3/uL Normal 150-400 [facility] Comment on above: Performed By: #### L [id number] ####[facility] ([facility])[address] [place] [address] RBC (Bld) [#/Vol] 3.38 10*6/uL Low 3.80-5.00 [facility] Comment on above: Performed By: #### L [id number] ####[facility] ([facility])[address] [place] [address] WBC (Bld) [#/Vol] 25.42 10*3/uL High 4.00-10.60 [facility] Comment on above: Performed By: #### L [id number] ####[facility] ([facility])[address] [facility] [address] CONSULTon 01-10-2025 CONSULT Reason For Consult immunocompromised pt with leukocytosis, likely respiratory Referring Provider: hospital medicine History Of Present Illness Sylvia Herrera is a 79 y.o. female with a history of heart transplant at the [facility] in 2005 who was transferred from [facility] for worsening creatinine after admission for pneumonia and UTI -the patient is unable to give a history and is alert and oriented only x 1 without family at bedside so the history is largely from staff and also the EMR. The patient has been following up locally with cardiology as she has not been able to get transportation to the transplant clinic at the [facility]: She has CKD (last creatinine I have in the chart prior to this admission is 1.45 over 1 year ago) but was otherwise relatively stable until the week prior to admission when she developed nausea vomiting diarrhea productive cough weakness and was found to have left lower lobe pneumonia, UTI, and acute on chronic renal failure with elevated creatinine she was treated with Zosyn and linezolid for the pneumonia without improvement and was transferred to [facility] for additional care. At the time of admission she was reported to be alert and oriented x 3 with no neurologic deficits -antibiotics were changed on admission to Rocephin and azithromycin. Over the next 24 hours the patient was noticed to have facial droop with disorientation and a stroke alert was called. 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 On assessment late morning she was alert and oriented x 1 (person only) and no further history was obtained -she has been afebrile since admission, blood cultures have been negative, white blood cell count has increased to 25 and I do not see a history of steroids given this admission Past Medical History She has a past medical history of Abnormal ECG, Chronic kidney disease, Coronary artery disease, Heart valve disease, Hypertension, and Hypothyroid. Surgical History She has a past surgical history that includes section, classic; Cholecystectomy (Bilateral); Heart transplant; Cardiac catheterization; and Thoracentesis. Family History Family History Family history unknown: Yes Social History She reports that she has never smoked. She has never used smokeless tobacco. She reports that she does not currently use alcohol. She reports that she does not use drugs. Allergies Promethazine hcl and Promethazine Medications Medications Prior to Admission Medication Sig Dispense Refill Last Dose aspirin 81 mg EC tablet Take 1 tablet every day by oral route. Past Week dorzolamide-timolol (Cosopt) 22.3-6.8 mg/mL ophthalmic solution Administer 1 drop into the left eye two times daily. Past Week levothyroxine (Synthroid, Levoxyl) 112 mcg tablet take 1 tablet by mouth every other day (alternates with 100mcg tablet) Past Week ryydro-teolcznm-ncwfixa (Creon) 24,000-76,000 -120,000 unit capsule Take 4 capsules by mouth with breakfast, with lunch, and with evening meal. Past Week magnesium oxide (Mag-Ox) 400 mg tablet 500 mg in the morning. Past Week mycophenolate (Cellcept) 250 mg capsule take 2 capsules by mouth every morning and 2 capsules every evening Past Week omega-3 1,000 mg capsule capsule Take 2,000 mg by mouth in the morning. Past Week pramipexole (Mirapex) 0.5 mg tablet Take 1 tablet by mouth at bedtime. Past Week simvastatin (Zocor) 20 mg tablet Take 1 tablet by mouth in the evening. Past Week tacrolimus (Prograf) 1 mg capsule TAKE 1 CAPSULE BY MOUTH IN THE MORNING AND AT BEDTIME 180 capsule 3 Past Week carvedilol (Coreg) 25 mg tablet Take 1 tablet (25 mg) by mouth with breakfast and with evening meal. 180 tablet 3 escitalopram (Lexapro) 10 mg tablet Take 10 mg by mouth in the morning. More than a month furosemide (Lasix) 40 mg tablet Take 1 tablet (40 mg) by mouth every other day. STOP LOSARTAN (Patient not taking: Reported on 01/08/2025) 45 tablet 3 More than a month losartan (Cozaar) 25 mg tablet Take 1 tablet (25 mg) by mouth in the morning. (Patient not taking: Reported on 01/08/2025) 90 tablet 3 More than a month Active Hospital Medications Medication Dose Route Frequency Last Admin acetaminophen 650 mg oral q6h PRN alum-mag hydroxide-simeth 20 mL oral 4x daily PRN aspirin 81 mg oral q AM azithromycin 500 mg intravenous q24h Stopped at 01/10/25 1139 bisacodyl 10 mg rectal Daily PRN carvedilol 25 mg oral BID with meals cefTRIAXone 1 g intravenous q24h Stopped at 01/09/25 2309 dorzolamide-timolol 1 drop Left Eye BID 1 drop at 01/10/25 1023 escitalopram 10 mg oral Daily famotidine 20 mg oral Daily 20 mg at 01/08/25 2237 guaiFENesin 600 mg oral BID PRN heparin (porcine) 5,000 Units subcutaneous q12h ROXANA 5,000 Units at 01/10/25 10 (more content not included)... Normal [facility] MANUAL DIFFERENTIALon 2024 BASOPHILS (10*3/UL) IN BLOOD BY CALCULATION 0.05 10*3/uL Normal 0.00-0.20 [facility] Comment on above: Performed By: #### L [id number] ####[facility] (BEAKER)[address] [place] [address] BASOPHILS/100 LEUKOCYTES IN BLOOD BY AUTOMATED COUNT 0.2 % Normal 0.0-1.0 [facility] Comment on above: Performed By: #### L [id number] ####[facility] ([facility]AKER)[address] [place] [address] EOSINOPHILS (10*3/UL) IN BLOOD BY CALCULATION 0.08 10*3/uL Normal 0.00-0.50 [facility] Comment on above: Performed By: #### L [id number] ####[facility] ([facility]ER)[address] [place] [address] EOSINOPHILS/100 LEUKOCYTES IN BLOOD BY AUTOMATED COUNT 0.3 % Normal 0.0-6.0 [facility] Comment on above: Performed By: #### L [id number] ####[facility] ([facility])[address] [place] [address] IMMATURE GRANULOCYTES (10*3/UL) IN BLOOD BY CALCULATION 0.38 10*3/uL High 0.00-0.20 [facility] Comment on above: Performed By: #### L [id number] ####[facility] ([facility])[address] [place] [address] IMMATURE GRANULOCYTES/100 LEUKOCYTES IN BLOOD BY AUTOMATED COUNT 1.5 % High 0.0-1.0 [facility] Comment on above: Performed By: #### L [id number] ####[facility] ([facility])[address] [place] [address] LYMPHOCYTES (10*3/UL) IN BLOOD BY CALCULATION 0.89 10*3/uL Low 1.20-4.00 [facility] Comment on above: Performed By: #### L [id number] ####[facility] ([facility])[address] [place] [address] LYMPHOCYTES/100 LEUKOCYTES IN BLOOD BY AUTOMATED COUNT 3.5 % Low 20.0-45.0 [facility] Comment on above: Performed By: #### L [id number] ####[facility] ([facility])[address] [place] [address] MONOCYTES (10*3/UL) IN BLOOD BY CALCUATION 1.68 10*3/uL High 0.10-1.00 [facility] Comment on above: Performed By: #### L [id number] ####[facility] ([facility])[address] [place] [address] MONOCYTES/100 LEUKOCYTES IN BLOOD BY AUTOMATED COUNT 6.6 % Normal 5.0-12.0 [facility] Comment on above: Performed By: #### L [id number] ####[facility] ([facility])[address] [place] [address] NEUTROPHILS (10*3/UL) IN BLOOD BY CALCULATION 22.3 10*3/uL High 1.6-7.6 [facility] Comment on above: Performed By: #### L [id number] ####[facility] ([facility])[address] [place] [address] NEUTROPHILS/100 LEUKOCYTES IN BLOOD BY AUTOMATED COUNT 87.9 % High 40.0-72.0 [facility] Comment on above: Performed By: #### L [id number] ####[facility] ([facility])[address] [place] [address] TACROLIMUS LEVELon 5 Tacrolimus (Bld) [Mass/Vol] 9.8 ng/mL Normal 5.0-20.0 [facility] Comment on above: Result Comment: The [employer] Tacrolimus assay is a delayed one-step immunoassay for the quantitative determination of tacrolimus in human whole blood using the chemiluminescent microparticle immunoassay (CMIA) technology with flexible assay protocols, referred to as Chemiflex. Performed By: #### L [id number] #### [facility] ([facility]) [address] [place] [address] 1,8-OPHG-N-GLUCANon 01-09-20 25 (1,3)-BHJW-W-BQWDUM <31 Normal [facility] Comment on above: Performed By: #### L [id number] ####[facility] ([facility])[address] [place] [address] (1,3)-XCDH-V-UFDDYH INTERPRETATION Negative Normal Negative [facility] Comment on above: Result Comment: INTE RPRETIVE INFORMATION: (1,3)-wcww-F-lginau (Fungitell) Less than 31 pg/mL ................... Negative 31-59 pg/mL .......................... Negative 60-79 pg/mL .......................... Indeterminate Greater than or equal to 80 pg/mL .... Positive The Fungitell test is indicated for presumptive diagnosis of fungal infection and should be used in conjunction with other diagnostic procedures. This test does not detect certain fungal species such as Cryptococcus, which produce very low levels of (1,3)-vbwd-C-belntf. This test will not detect the zygomycetes, such as Absidia, Mucor, and Rhizopus, which are not known to produce (1,3)-zurl-L-grkdky. In addition, the yeast phase of Blastomyces dermatitidis produces little (1,3)-dxwi-Z-lkpmjx and may not be detected by the assay. Performed By: [facility] [address] [place] [address] Commercial Crabber: Jc Fine MD, PhD CLIA Number: [id number] Performed By: #### L [id number] ####[facility] ([facility])[address] [place] [address] 30on 01-09-2025 30 The patient is Moder ately Unstable - Medium risk of patient condition declining or worsening The patient's goals for the shift include rest/comfort The clinical goals for the shift include safety/rest/stable vs Problem: Pain - Adult Goal: Verbalizes/displays adequate comfort level or baseline comfort level Outcome: Progressing Flowsheets (Taken 01/09/2025815) Verbalizes/displays adequate comfort level or baseline comfort level: Encourage patient to monitor pain and request assistance Implement non-pharmacological measures as appropriate and evaluate response Consider cultural and social influences on pain and pain management Notify Licensed Independent Practitioner if interventions unsuccessful or patient reports new pain Assess pain using appropriate pain scale Administer analgesics based on type and severity of pain and evaluate response Problem: Safety - Adult Goal: Free from fall injury Outcome: Progressing Flowsheets (Taken 01/09/2025815) Free from fall injury: Assess patient frequently for physical needs Mcguffey fall precautions as indicated by assessment Modify environment to reduce risk of injury Consider OT/PT consult to assist with strengthening/mobility Educate patient/family on patient safety, including physical limitations Identify cognitive and physical deficits and behaviors that affect risk of falls Instruct patient to call for assistance with activity based on assessment Problem: Discharge Planning Goal: Discharge to home or other facility with appropriate resources Outcome: Progressing Flowsheets (Taken 01/09/2025815) Discharge to home or other facility with appropriate resources: Identify barriers to discharge with patient and caregiver Arrange for needed discharge resources and transportation as appropriate Identify discharge learning needs (meds, wound care, etc) Refer to discharge planning if patient needs post-hospital services based on physician order or complex needs related to functional status, cognitive ability or social support system Arrange for interpreters to assist at discharge as needed Problem: Chronic Conditions and Co-morbidities Goal: Patient's chronic conditions and co-morbidity symptoms are monitored and maintained or improved Outcome: Progressing Flowsheets (Taken 01/09/2025 0816) Care Plan - Patient's Chronic Conditions and Co-Morbidity Symptoms are Monitored and Maintained or Improved: Monitor and assess patient's chronic conditions and comorbid symptoms for stability, deterioration, or improvement Collaborate with multidisciplinary team to address chronic and comorbid conditions and prevent exacerbation or deterioration Update acute care plan with appropriate goals if chronic or comorbid symptoms are exacerbated and prevent overall improvement and discharge Normal [facility] 30 The patient is Moder ately Stable - Low risk of patient condition declining or worsening The patient's goals for the shift include feel better, rest/sleep The clinical goals for the shift include vss, safety, rest Over the shift, the patient did not make progress toward the following goals. Barriers to progression include elevated creatinine, pneumonia, wounds. Recommendations to address these barriers include making changes to the treatment plan as needed. Problem: Pain - Adult Goal: Verbalizes/displays adequate comfort level or baseline comfort level Outcome: Progressing Flowsheets (Taken 01/09/2025307) Verbalizes/displays adequate comfort level or baseline comfort level: Encourage patient to monitor pain and request assistance Assess pain using appropriate pain scale Administer analgesics based on type and severity of pain and evaluate response Implement non-pharmacological measures as appropriate and evaluate response Consider cultural and social influences on pain and pain management Problem: Safety - Adult Goal: Free from fall injury Outcome: Progressing Flowsheets (Taken 01/09/2025307) Free from fall injury: Assess patient frequently for physical needs Identify cognitive and physical deficits and behaviors that affect risk of falls Mcguffey fall precautions as indicated by assessment Educate patient/family on patient safety, including physical limitations Instruct patient to call for assistance with activity based on assessment Modify environment to reduce risk of injury Problem: Discharge Planning Goal: Discharge to home or other facility with appropriate resources Outcome: Progressing Flowsheets (Taken 01/09/2025307) Discharge to home or other facility with appropriate resources: Identify barriers to discharge with patient and caregiver Arrange for needed discharge resources and transportation as appropriate Identify discharge learning needs (meds, wound care, etc) Problem: Chronic Conditions and Co-morbidities Goal: Patient's chronic conditions and co-morbidity symptoms are monitored and maintained or improved Outcome: Progressing Flowsheets (Taken 01/09/2025 030) Care Plan - Patient's Chronic Conditions and Co-Morbidity Symptoms are Monitored and Maintained or Improved: Monitor and assess patient's chronic conditions and comorbid symptoms for stability, deterioration, or improvement Collaborate with multidisciplinary team to address chronic and comorbid conditions and prevent exacerbation or deterioration Normal [facility] ASPERGILLUS GALACTOMANNAN AN TIGENon 01-09-2025 ASPERGILLUS GALACTOMANNAN ANTIGEN, SERUM Negative Normal Negative [facility] Comment on above: Result Comment: INTE RPRETIVE INFORMATION: Aspergillus Galactomannan Antigen by EIA Negative results do not exclude the diagnosis of invasive aspergillosis. A single positive test result (index equal to or greater than 0.5) should be clinically correlated by testing a separate serum specimen because many agents (e.g. foods, antibiotics) may cross-react with the test. If invasive aspergillosis is suspected in high-risk patients, serial sampling is recommended. Performed By: [facility] [address] [place] [address] Commercial Crabber: Jc Fine MD, PhD CLIA Number: [id number] Performed By: #### L [id number] #### [facility] ([employer]) [address] [place] [address] ASPERGILLUS GALACTOMANNAN INDEX 0.03 Normal [facility] Comment on above: Performed By: #### L [id number] #### [facility] ([facility]) [address] [place] [address] BLOOD CULTUREon 01-09-2025 Bacteria identified Cx Nom (Bld) No growth at 5 days Normal [facility] Comment on above: Performed By: #### L [id number] ####[facility] ([facility]AKER)[address] [place] [address] Order Comment: From a different site than #1. CBC WITH AUTO DIFFERENTIALon 01-09-2025 Erythrocyte distribution width (RBC) [Ratio] 15.4 % High 11.5-15.0 [facility] Comment on above: Performed By: #### L [id number] ####[facility] ([facility]AKER)[address] [place] [address] ERYTHROCYTE MEAN CORPUSCULAR HEMOGLOBIN CONCENTRATION (G/DL) BY AUTOMATED 30.7 g/dL Low 32.0-35.0 [facility] Comment on above: Performed By: #### L [id number] ####[facility] ([facility]ER)[address] [place] [address] Hematocrit (Bld) [Volume fraction] 30.9 % Low 36.0-48.0 [facility] Comment on above: Performed By: #### L [id number] ####[facility] ([facility]ER)[address] [place] [address] Hemoglobin (Bld) [Mass/Vol] 9.5 g/dL Low 12.0-15.0 [facility] Comment on above: Performed By: #### L [id number] ####[facility] ([facility])[address] [place] [address] MCH (RBC) [Entitic mass] 29.1 pg Normal 27.0-33.0 [facility] Comment on above: Performed By: #### L [id number] ####[facility] ([facility] [place] [address] MCV (RBC) [Entitic vol] 94.8 fL Normal 82.0-98.0 [facility] Comment on above: Performed By: #### L [id number] ####[facility] ([facility]AKER)[address] [place] [address] NRBC (PER 100 WBCS) BY AUTOMATED COUNT 0.0 % Normal 0 [facility] Comment on above: Performed By: #### L [id number] ####[facility] ([facility]AKER)[address] [place] [address] PLATELETS (10*3/UL) IN BLOOD AUTOMATED COUNT 207 10*3/uL Normal 150-400 [facility] Comment on above: Performed By: #### L [id number] ####[facility] ([facility]ER)[address] [place] [address] RBC (Bld) [#/Vol] 3.26 10*6/uL Low 3.80-5.00 [facility] Comment on above: Performed By: #### L [id number] ####[facility] ([facility])[address] [place] [address] WBC (Bld) [#/Vol] 17.00 10*3/uL High 4.00-10.60 [facility] Comment on above: Performed By: #### L [id number] ####[facility] ([facility])[address] [place] [address] CLOSTRIDIOIDES DIFFICILE DNA AMPLIFICATIONon 01-09-2025 CLOSTRIDIOIDES DIFFICILE (TOXIN A/B) Negative Normal Negative [facility] Comment on above: Order Comment: Testi ng methodology is an in vitro diagnostic test for the direct, qualitative detection of the Clostridioides difficile Toxin A gene (tcdA) in unformed stool specimens of patients suspected of having Clostridioides difficile-infection (CDI). The [place] C. difficile Assay is intended for use as an aid in diagnosis of CDI. The assay utilizes helicase-dependent amplification (HDA) for the amplification of a highly conserved fragment of the Toxin A gene sequence. Performed By: #### L [id number] ####[facility] ([facility])[address] [place] [address] COMPREHENSIVE METABOLIC PANE Adan 01-09-2025 Albumin [Mass/Vol] 2.9 g/dL Low 3.5-5.[address] [facility] Comment on above: Performed By: #### L [id number] #### [facility] [address] [place] [address] [place] ALP [Catalytic activity/Vol] 160 U/L High 34-104 [facility] Comment on above: Performed By: #### L [id number] #### [facility] [address] [place] [address] [place] ALT [Catalytic activity/Vol] 26 U/L Normal 7-52 [facility] Comment on above: Performed By: #### L [id number] #### [facility] [address] [place] [address] [place] Anion gap [Moles/Vol] 13 mmol/L Normal 7-20 [facility] Comment on above: Performed By: #### L [id number] #### [facility] [address] [place] [address] [facility] AST [Catalytic activity/Vol] 20 U/L Normal 13-39 [facility] Comment on above: Performed By: #### L [id number] #### [facility] [address] [place] [address] [facility] Bilirubin [Mass/Vol] 0.3 mg/dL Normal 0.3-1.0 [facility] Comment on above: Performed By: #### L [id number] #### [facility] [address] [place] [address] [facility] Calcium [Mass/Vol] 7.4 mg/dL Low 8.6-10.[address] [facility] Comment on above: Performed By: #### L [id number] #### [facility] [address] [place] [address] [place] Chloride [Moles/Vol] 119 mmol/L High 98-107 [facility] Comment on above: Performed By: #### L [id number] #### [facility] [address] [place] [address] [place] CO2 [Moles/Vol] 10 mmol/L Invalid Interpretation Code [facility] Comment on above: Performed By: #### L [id number] #### [facility] [address] [place] [address] [place] Creatinine [Mass/Vol] 4.40 mg/dL High 0.60-1.20 [facility] Comment on above: Performed By: #### L [id number] #### [facility] [address] [place] [address] [facility] GLOMERULAR FILTRATION RATE ML/MIN/1.73 SQ M.PREDICTED 9.6 mL/min/1.73m*2 Low >60.0 [facility] Comment on above: Result Comment: The [facility]???s estimated glomerular filtration rate (eGFR) will no longer include consideration of race in its calculation. The National Kidney Foundation???s eGFR Task Force developed new recommendations for the estimation of the glomerular filtration rate in the [place] They recommend immediate implementation of the new equation refit without the race variable in all laboratories because the calculation does not include race. In addition to not including race in the calculation and reporting, it included diversity in its development, and has acceptable performance characteristics and potential consequences that do not disproportionately affect any one group of individuals. Performed By: #### L [id number] #### [facility] [address] [place] [address] [place] Glucose [Mass/Vol] 105 mg/dL High 70-[address] [facility] Comment on above: Performed By: #### L [id number] #### [facility] [address] [place] [address] [place] Potassium [Moles/Vol] 4.8 mmol/L Normal 3.5-5.1 [facility] Comment on above: Performed By: #### L [id number] #### [facility] [address] [place] [address] [place] Protein [Mass/Vol] 4.7 g/dL Low 6.0-8.[address] [facility] Comment on above: Performed By: #### L [id number] #### [facility] [address] [place] [address] [place] Sodium [Moles/Vol] 137 mmol/L Normal 136-[address] [facility] Comment on above: Performed By: #### L [id number] #### [facility] [address] [place] [address] [place] Urea nitrogen [Mass/Vol] 83 mg/dL High 7-25 [facility] Comment on above: Performed By: #### L [id number] #### [facility] [address] [place] [address] [place] UREA NITROGEN/CREATININE (MASS RATIO) IN SER/PLAS 18.9 Normal [facility] Comment on above: Performed By: #### L [id number] #### [facility] [address] [place] [address] [facility] CONSULTon 01-09-2025 CONSULT Inpatient consult to Neurology Consult performed by: Tram Hernandez MD Consult ordered by: Jerad Norton MD History Of Present Illness Sylvia Herrera is a 79 y.o. female for whom neurology is consulted for anisocoria and ptosis. Patient is a poor historian. She just reports I can't see well. No family bedside. Unclear when symptoms began. She holds her left eye closed unless instructed to keep both eyes open. Past Medical History She has a past medical history of Abnormal ECG, Chronic kidney disease, Coronary artery disease, Heart valve disease, Hypertension, and Hypothyroid. Surgical History She has a past surgical history that includes section, classic; Cholecystectomy (Bilateral); Heart transplant; Cardiac catheterization; and Thoracentesis. Social History She reports that she has never smoked. She has never used smokeless tobacco. She reports that she does not currently use alcohol. She reports that she does not use drugs. Allergies Promethazine hcl and Promethazine Medications Medications Prior to Admission Medication Sig Dispense Refill Last Dose aspirin 81 mg EC tablet Take 1 tablet every day by oral route. Past Week dorzolamide-timolol (Cosopt) 22.3-6.8 mg/mL ophthalmic solution Administer 1 drop into the left eye two times daily. Past Week levothyroxine (Synthroid, Levoxyl) 112 mcg tablet take 1 tablet by mouth every other day (alternates with 100mcg tablet) Past Week hsihmx-ixlqgfro-recbwgb (Creon) 24,000-76,000 -120,000 unit capsule Take 4 capsules by mouth with breakfast, with lunch, and with evening meal. Past Week magnesium oxide (Mag-Ox) 400 mg tablet 500 mg in the morning. Past Week mycophenolate (Cellcept) 250 mg capsule take 2 capsules by mouth every morning and 2 capsules every evening Past Week omega-3 1,000 mg capsule capsule Take 2,000 mg by mouth in the morning. Past Week pramipexole (Mirapex) 0.5 mg tablet Take 1 tablet by mouth at bedtime. Past Week simvastatin (Zocor) 20 mg tablet Take 1 tablet by mouth in the evening. Past Week tacrolimus (Prograf) 1 mg capsule TAKE 1 CAPSULE BY MOUTH IN THE MORNING AND AT BEDTIME 180 capsule 3 Past Week carvedilol (Coreg) 25 mg tablet Take 1 tablet (25 mg) by mouth with breakfast and with evening meal. 180 tablet 3 escitalopram (Lexapro) 10 mg tablet Take 10 mg by mouth in the morning. More than a month furosemide (Lasix) 40 mg tablet Take 1 tablet (40 mg) by mouth every other day. STOP LOSARTAN (Patient not taking: Reported on 01/08/2025) 45 tablet 3 More than a month losartan (Cozaar) 25 mg tablet Take 1 tablet (25 mg) by mouth in the morning. (Patient not taking: Reported on 01/08/2025) 90 tablet 3 More than a month Review of Systems Eyes: Positive for visual disturbance. Neurological: Positive for facial asymmetry. Neurological Exam Physical Exam Mental status: alert, oriented to person and place only. Poor historian. Speaks in full sentences. Some perseveration. Does not name objects, but this may be due to poor vision. Difficulty following complex commands. Cranial nerves: right pupil 2mm and reactive, left pupil 4mm and unreactive, left ptosis. Gaze is midline and able to cross midline TRISHA, but she is not able to follow commands well enough for detailed EOM exam. No lower facial weakness. She does not blink to visual threat with the left eye. She does blink to threat with the right eye, but cannot count fingers with either eye. She has slurred speech. Reports intact facial sensation V1/2/3 TRISHA. Tongue protrudes midline with normal movement, symmetric shoulder shrug Motor: 4/5 all four extremities strength Sensory: intact to light touch all four extremities Coordination: past pointing with left hand, FNF intact right. Unable to assess heel to barrera due to difficulty following commands. Asterixis noted TRISHA upper extremities Last Recorded Vitals Blood pressure 127/63, pulse 64, temperature 36.4 ???C (97.6 ???F), temperature source Temporal, resp. rate 20, height 1.575 m (5' 2.01 ), weight 47.5 kg (104 lb 12.8 oz), SpO2 99%. 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 Will assess for secondary causes of CN3 palsy with MRI brain with thin cuts through brain stem and MRA head Metabolic encephalopathy due to acute kidney injury causing altered mentation and asterixis. DREW management per primary Will follow Tram Hernandez MD Normal [facility] CONSULT ------- Attestation signed by Manfred Kramer MD at 01/10/2025 7:35 PM I personally saw this patient on the day of the encounter with the fellow/resident, and performed the bautista portion(s) of the service and participated in the management and confirm the resident's documen-tation. Please note there may be an additional personal documentation from me. Manfred Kramer MD Faculty, Division of Nephrology, Department of Medicine [facility]. Nephrology Consult Note Patient : Sylvia Herrera; 79 y.o. Location: 3184/3184-01 Attending: Jerad Norton MD Admit Date: 01/08/2025 Hospital Day: 1 Reason for Consult: DREW on CKD3B History of Present Illness: Sylvia Herrera is an 79 y.o. female who came from home with past medical history of nonischemic cardiomyopathy, s/p heart transplant in 2005 at [facility], CKD, 3B, anxiety, exocrine pancreatic sufficiency, hypothyroidism, hypertension and hyperlipidemia presented to [facility] as a direct transfer from [facility]. Patient initially presented there on 01/05/25 because of generalized weakness, nausea, vomiting and diarrhea over the last week. Patient also had decreased oral intake and had productive cough. Upon evaluation in the ER at [facility], patient was found to have left lower lobe pneumonia, UTI and significantly worsening kidney function. Patient's baseline creatinine is around 1.5 and it was up to 6. Patient was admitted to the hospital and started on Zosyn and linezolid for pneumonia. Initially after IV fluids patient's creatinine improved down to 4 but then it was worsening up to 4.6. Patient's BNP was also elevated and she had echo done which came back with normal ejection fraction. 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 Daly was contacted and agreed for the patient to be transferred to [facility] for nephrology consult. On my assessment, patient denies fevers or chills. No chest pain or shortness of breath. Her diarrhea improved but she still feels nauseous and has decreased oral intake but no vomiting. She complains of dysuria. Per report, she has good urine output. No other complaints or concerns. 01/09/25: Patient seen and examined at bedside. Endorses weakness and poor appetite. Also endorses having diarrhea chronically. Review of Systems: Review of Systems Constitutional: Positive for appetite change. Negative for chills, fatigue and fever. Respiratory: Negative for cough and shortness of breath. Cardiovascular: Negative for chest pain, palpitations and leg swelling. Gastrointestinal: Positive for diarrhea and nausea. Negative for abdominal distention, abdominal pain, blood in stool, constipation and vomiting. Endocrine: Negative for polyuria. Genitourinary: Negative for decreased urine volume, dysuria and urgency. Musculoskeletal: Negative for arthralgias and back pain. Neurological: Negative for syncope, weakness and headaches. Input/Output: I/O last 3 completed shifts: In: 790.1 (16.6 mL/kg) [P.O.:240; IV Piggyback:550.1] Out: - (0 mL/kg) Weight: 47.5 kg Vital Signs: Temperature: Temp: 36.4 ???C (97.6 ???F) TMax: Temp (24hrs), Av.4 ???C (97.5 ???F), Min:36 ???C (96.8 ???F), Max:36.6 ???C (97.9 ???F) Respirations: Resp: 20 Pulse: Heart Rate: 64 BP: BP: 127/63 BP Range: Systolic (24hrs), Av , Min:105 , Max:143 Diastolic (24hrs), Av, Min:56, Max:73 Wt Readings from Last 3 Encounters: 01/09/25 47.5 kg (104 lb 12.8 oz) 09/14/24 48.5 kg (107 lb) 07/01/24 52.6 kg (116 lb) Physical Examination: Physical Exam Constitutional: Appearance: Normal appearance. HENT: Head: Normocephalic and atraumatic. Cardiovascular: Rate and Rhythm: Normal rate and regular rhythm. Pulses: Normal pulses. Heart sounds: Normal heart sounds. Pulmonary: Breath sounds: Normal breath sounds. Abdominal: General: Abdomen is flat. Palpations: Abdomen is soft. Musculoskeletal: Right lower leg: No edema. Left lower leg: No edema. Neurological: Mental Status: She is alert. Labs: Chemistry: Lab Results Component Value Date NA 137 01/09/2025 K 4.8 01/09/2025 CL 119 (H) 01/09/2025 CO2 10 (LL) 01/09/2025 ANIONGAP 13 01/09/2025 BUN 83 (H) 01/09/2025 CREATININE 4.40 (H) 01/09/2025 EGFR 9.6 (L) 01/09/2025 CALCIUM 7.4 (L) 01/09/2025 MG 1.9 01/08/2025 PHOS 4.9 01/08/2025 ALBUMIN 2.9 (L) 01/09/2025 PROT 4.7 (L) 01/09/2025 AST 20 01/09/2025 ALT 26 01/09/2025 BILITOT 0.3 01/09/2025 BILIDIR 0.1 01/08/2025 ALKPHOS 160 (H) 01/09/2025 Hematology & Iron studies: Lab Results Component Value Date WBC 17.00 (H) 01/09/2025 HGB 9.5 (L) 01/09/2025 HCT 30.9 (L) 01/09/2025 MCV 94.8 01/09/20 (more content not included)... Normal [facility] CONSULT ------- Attestation signed by Harjinder Reynaga MD at 01/10/2025 6:54 PM I evaluated, discussed and reviewed the patient on rounds with the medical scientist. I agree with their assessment and plan as documented in the patient's progress note from today Cardiology Consult Note Reason for Consult: history of heart transplant HPI: Sylvia Herrera is a 79 y.o. female with a past medical history significant for nonischemic cardiomyopathy s/p LVAD placement followed by cardiac transplant in 2005 at [facility], required mediastinal re-exploration post transplant x 2 for bleeding, hypertension, chronic kidney disease, hypothyroidism, and pancreatic exocrine insufficiency. She does not have history of rejection. Last cath in 2017 negative and stress test in 2019 negative. Off note, patient was seen by MD cardiology outpatient in September 2024 for shortness of breath. She was advised to get BNP and echo which were not performed. Patient presented to the [facility] with generalized weakness, productive cough, nausea, vomiting, diarrhea for past 1 week. She was found to have DREW and leukocytosis, was started on IV fluids and antibiotics. Her creatinine improved initially from 6 to 4 however worsened again. Reported echo showed normal EF. Cardiology was contacted overnight who recommended transfer to [facility] for further workup and nephrology consult. Troponin 001, BNP 563, creatinine 4.40, venous pH 7.18, pCO2 25, CO2 10, WBC 17. EKG showed normal sinus rhythm, and right atrial enlargement. On evaluation today, blood pressure 110s-120s/60s, heart rate 60s, saturating well on room air. She looked lethargic, oriented to time only. Cardiology ROS: Negative except as mentioned. Past Medical History She has a past medical history of Abnormal ECG, Chronic kidney disease, Coronary artery disease, Heart valve disease, Hypertension, and Hypothyroid. Surgical History She has a past surgical history that includes section, classic; Cholecystectomy (Bilateral); Heart transplant; Cardiac catheterization; and Thoracentesis. Social History She reports that she has never smoked. She has never used smokeless tobacco. She reports that she does not currently use alcohol. She reports that she does not use drugs. Family History Family History Family history unknown: Yes Allergies Promethazine hcl and Promethazine Medications Current Outpatient Medications Medication Instructions aspirin 81 mg EC tablet Take 1 tablet every day by oral route. carvedilol (COREG) 25 mg, oral, 2 times daily with meals dorzolamide-timolol (Cosopt) 22.3-6.8 mg/mL ophthalmic solution 1 drop, Left Eye, 2 times daily escitalopram (LEXAPRO) 10 mg, oral, Daily furosemide (LASIX) 40 mg, oral, Every other day, STOP LOSARTAN levothyroxine (Synthroid, Levoxyl) 112 mcg tablet take 1 tablet by mouth every other day (alternates with 100mcg tablet) zgawer-dqlppswm-twjzoun (Creon) 24,000-76,000 -120,000 unit capsule 4 capsules, oral, 3 times daily with meals losartan (COZAAR) 25 mg, oral, Daily magnesium oxide (MAG-OX) 500 mg, Daily mycophenolate (Cellcept) 250 mg capsule take 2 capsules by mouth every morning and 2 capsules every evening omega-3 2,000 mg, oral, Daily RT pramipexole (Mirapex) 0.5 mg tablet 1 tablet, oral, Nightly simvastatin (Zocor) 20 mg tablet 1 tablet, oral, Every evening tacrolimus (Prograf) 1 mg capsule TAKE 1 CAPSULE BY MOUTH IN THE MORNING AND AT BEDTIME Medications Prior to Admission Medication Sig Dispense Refill Last Dose aspirin 81 mg EC tablet Take 1 tablet every day by oral route. Past Week dorzolamide-timolol (Cosopt) 22.3-6.8 mg/mL ophthalmic solution Administer 1 drop into the left eye two times daily. Past Week levothyroxine (Synthroid, Levoxyl) 112 mcg tablet take 1 tablet by mouth every other day (alternates with 100mcg tablet) Past Week xjiqlk-boeklskw-anczdzu (Creon) 24,000-76,000 -120,000 unit capsule Take 4 capsules by mouth with breakfast, with lunch, and with evening meal. Past Week magnesium oxide (Mag-Ox) 400 mg tablet 500 mg in the morning. Past Week mycophenolate (Cellcept) 250 mg capsule take 2 capsules by mouth every morning and 2 capsules every evening Past Week omega-3 1,000 mg capsule capsule Take 2,000 mg by mouth in the morning. Past Week pramipexole (Mirapex) 0.5 mg tablet Take 1 tablet by mouth at bedtime. Past Week simvastatin (Zocor) 20 mg tablet Take 1 tablet by mouth in the evening. Past Week tacrolimus (Prograf) 1 mg capsule TAKE 1 CAPSULE BY MOUTH IN THE MORNING AND AT BEDTIME 180 capsule 3 Past Week carvedilol (Coreg) 25 mg tablet Take 1 tablet (25 mg) by mouth with breakfast and with evening meal. 180 tablet 3 escitalopram (Lexapro) 10 mg tablet Take 10 mg by mouth in the morning. (more content not included)... Normal [facility] CT HEAD WO IV CONTRASTon CT HEAD WO IV CONTRAST Clinical History: Stroke symptoms. Neurologic deficit. CT brain: 01/09/2025 Procedure: Axial images were obtained from the skull base through the cranial vertex. All CT scans at this facility use dose modulation, iterative reconstruction, and/or weight based dosing when appropriate to reduce radiation dose to as low as reasonably achievable. Findings: There is no acute intracranial hemorrhage, mass, or mass effect. Hypodensity is present throughout cerebral white matter tracts nonspecific appearance most likely the sequela of chronic cerebrovascular disease. There is no focal extra-axial collection. The basal cisterns and ventricles are patent. Mural thickening and fluid are present within some of the ethmoid air cells and the left sphenoid sinus. No acute osseous abnormalities evident. IMPRESSION: No acute intracranial abnormality on CT evaluation. Changes of ischemia may be delayed on CT. If there is further concern for acute ischemia further evaluation using MRI may be helpful.. Chronic appearing findings as described above. Electronically signed: Ortiz Adams. 9 Invalid Interpretation Code [facility] LACTIC ACID WITH 4 HOUR REFL EXon 01-09-2025 LACTATE (MMOL/L) IN SER/PLAS 0.6 mmol/L Normal 0.5-2.2 [facility] Comment on above: Performed By: #### L [id number] #### [facility] ([facility]) [address] [place] [address] LACTATE (MMOL/L) IN SER/PLAS 0.7 mmol/L Normal 0.5-2.2 [facility] Comment on above: Performed By: #### L [id number] #### [facility] ([facility]) [address] [place] [address] MANUAL DIFFERENTIALon 2024 ANISOCYTOSIS PRESENCE IN BLOOD BY LIGHT MICROSCOPY Moderate Normal [facility] Comment on above: Performed By: #### L [id number] ####[facility] ([facility])[address] [place] [address] BASOPHILS (10*3/UL) IN BLOOD BY CALCULATION 0.05 10*3/uL Normal 0.00-0.20 [facility] Comment on above: Performed By: #### L [id number] ####[facility] ([facility])[address] [facility] [place] [address] BASOPHILS/100 LEUKOCYTES IN BLOOD BY AUTOMATED COUNT 0.3 % Normal 0.0-1.0 [facility] Comment on above: Performed By: #### L [id number] ####[facility] ([facility])[address] [facility] [place] [address] EOSINOPHILS (10*3/UL) IN BLOOD BY CALCULATION 0.09 10*3/uL Normal 0.00-0.50 [facility] Comment on above: Performed By: #### L [id number] ####[facility] ([facility])[address] [facility] [place] [address] EOSINOPHILS/100 LEUKOCYTES IN BLOOD BY AUTOMATED COUNT 0.5 % Normal 0.0-6.0 [facility] Comment on above: Performed By: #### L [id number] ####[facility] ([facility])[address] [facility] [place] [address] IMMATURE GRANULOCYTES (10*3/UL) IN BLOOD BY CALCULATION 0.51 10*3/uL High 0.00-0.20 [facility] Comment on above: Performed By: #### L [id number] ####[facility] ([facility])[address] [place] [address] IMMATURE GRANULOCYTES/100 LEUKOCYTES IN BLOOD BY AUTOMATED COUNT 3.0 % High 0.0-1.0 [facility] Comment on above: Performed By: #### L [id number] ####[facility] ([facility])[address] [place] [address] LYMPHOCYTES (10*3/UL) IN BLOOD BY CALCULATION 0.83 10*3/uL Low 1.20-4.00 [facility] Comment on above: Performed By: #### L [id number] ####[facility] ([facility])[address] [place] [address] LYMPHOCYTES/100 LEUKOCYTES IN BLOOD BY AUTOMATED COUNT 4.9 % Low 20.0-45.0 [facility] Comment on above: Performed By: #### L [id number] ####[facility] ([facility])[address] [place] [address] MONOCYTES (10*3/UL) IN BLOOD BY CALCUATION 1.07 10*3/uL High 0.10-1.00 [facility] Comment on above: Performed By: #### L [id number] ####[facility] ([facility])[address] [place] [address] MONOCYTES/100 LEUKOCYTES IN BLOOD BY AUTOMATED COUNT 6.3 % Normal 5.0-12.0 [facility] Comment on above: Performed By: #### L [id number] ####[facility] ([facility])[address] [place] [address] NEUTROPHILS (10*3/UL) IN BLOOD BY CALCULATION 14.5 10*3/uL High 1.6-7.6 [facility] Comment on above: Performed By: #### L [id number] ####[facility] ([facility])[address] [place] [address] NEUTROPHILS/100 LEUKOCYTES IN BLOOD BY AUTOMATED COUNT 85.0 % High 40.0-72.0 [facility] Comment on above: Performed By: #### L [id number] ####[facility] ([facility])[address] [place] [address] POIKILOCYTOSIS (PRESENCE) IN BLOOD BY LIGHT MICROSCOPY Slight Normal [facility] Comment on above: Performed By: #### L [id number] ####[facility] ([facility])[address] [place] [address] POLYCHROMASIA IN BLOOD BY LIGHT MICROSCOPY Slight Normal [facility] Comment on above: Performed By: #### L [id number] ####[facility] ([facility])[address] [place] [address] MR BRAIN WO CONTRASTon 01-09 MR BRAIN WO CONTRAST MR BRAIN WO CONTRAS T 01/09/2025 1:05 PM HISTORY: Neuro deficit, acute, stroke suspected encephalopathy encephalopathy . PROTOCOL: Multiplanar multisequence MRI of the brain. without intravenous contrast. COMPARISON: None. FINDINGS: No acute ischemia, no ventricular outflow obstruction. Numerous microhemorrhages, subcortical peripheral collection, additional involvement of the bilateral thalami. Moderate burden matter FLAIR hyperintensities. Apparent asymmetric right greater than left hippocampal volume loss. Grossly unremarkable intravenous cranial vascular flow voids. Asymmetric fluid right mastoid air cells. Grossly unremarkable cochlea, vestibule, semicircular canals. Canalicular segments cranial nerves VII and VIII are located along the caudal aspect of the IAC, no discrete nodular lesion within either IAC. Asymmetric left sigmoid mucosal thickening, mucosal thickening alveolar recess bilateral maxillary sinuses. Unremarkable orbits. Lens replacements. Unremarkable scalp soft tissues. IMPRESSION: Numerous nonacute microhemorrhages, distribution favors amyloid angiopathy [however additional central hemorrhages may relate to superimposed hypertensive microangiopathy or alternative underlying etiology]. Moderate burden white matter FLAIR hyperintensities, which may relate to chronic microvascular ischemic change. Apparent asymmetric right greater than left hippocampal volume loss. No discrete lesion seen within either IAC. The canalicular segments of the cranial nerves VII and VIII are peripherally located along the caudal margin of the IAC, precise etiology is indeterminant, intracranial hypotension is possible. Grossly unremarkable appearance of the IACs Electronically signed: Luis Wilkins MD. 8 Invalid Interpretation Code [facility] MR HEAD ANGIO WO IV CONTRAST on 01-09-2025 MR HEAD ANGIO WO IV CONTRAST MR HEAD ANGIO WO IV CONTRAST 01/09/2025 1:05 PM PROTOCOL: Noncontrast MRA head. COMPARISON: None. FINDINGS: Motion degraded study, findings may be obscured. 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 Anterior communicating artery not well visualized. Otherwise, grossly unremarkable appearance of the visualized intracranial internal carotid, anterior, middle, posterior cerebral arteries. Unremarkable vertebral and basilar arteries. IMPRESSION: Motion degraded study, significant findings may be obscured. 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 Consider CTA for repeat exam under sedation for more detailed assessment of this aneurysm and assessment of other vessels for potentially smaller aneurysms. Electronically signed: Luis Wilkins MD. 8 Invalid Interpretation Code [facility] POCT GLUCOSE METER UNSOLICIT ED RESULTSon 01-09-2025 Glucose [Mass/Vol] 101 mg/dL Normal 70-[address] [facility] Comment on above: Order Comment: Waive d Testing in the ED is performed under the ED CLIA certificate #[id number]. Result Comment: epro kt Performed By: #### L [id number] #### [facility] ([facility]) [address] [place] [address] TSH3 REFLEX TO FT4on 025 THYROTROPIN (MIU/L) IN SER/PLAS BY DETECTION LIMIT <= 0.05 MIU/L 0.86 mIU/L Normal 0.34-5.60 [facility] Comment on above: Performed By: #### L [id number] ####[facility] ([facility])[address] [place] [address] VENOUS BLOOD GAS WITH IONIZE D CALCIUMon 01-09-2025 Base excess Calc (BldV) [Moles/Vol] -17.40066 mmol/L Normal [facility] Comment on above: Performed By: #### L [id number] #### [facility] ([facility]) [address] [place] [address] CALCIUM IONIZED (MMOL/L) IN BLOOD 1.25 mmol/L Normal 1.15-1.33 [facility] Comment on above: Performed By: #### L [id number] #### [facility] ([facility]) [address] [place] [address] CO2 (BldV) [Partial pressure] 25 mm[Hg] Low 40-50 [facility] Comment on above: Performed By: #### L [id number] #### [facility] ([facility]) [address] [place] [address] HCO3 (Bld) [Moles/Vol] 9.3 mmol/L Normal [facility] Comment on above: Performed By: #### L [id number] #### [facility] ([facility]) [address] [place] [address] Oxygen (BldV) [Partial pressure] 69 mm[Hg] High 35-45 [facility] Comment on above: Performed By: #### L [id number] #### [facility] ([facility]) [address] [place] [address] OXYGEN SATURATION (%) IN VENOUS BLOOD 96.1 % High 65.0-75.0 [facility] Comment on above: Performed By: #### L [id number] #### [facility] ([facility]) [address] [place] [address] PH OF VENOUS BLOOD 7.18 Invalid Interpretation Code 7.31-7.41 [facility] Comment on above: Performed By: #### L [id number] #### [facility] ([facility]) [address] [place] [address] APTTon 01-08-2025 ACTIVATED PARTIAL THROMBOPLASTIN TIME IN PPP BY COAGULATION ASSAY 34.0 Seconds Normal 25.0-35.0 [facility] Comment on above: Result Comment: Clin ical significance of the APTT is questionable in the presence of heparin. Performed By: #### L [id number] #### [facility] ([facility]) [address] [place] [address] B-TYPE NATRIURETIC PEPTIDEon 01-08-2025 Natriuretic peptide B (Bld) [Mass/Vol] 563 pg/mL High 0-100 [facility] Comment on above: Performed By: #### L [id number] #### [facility] ([facility]) [address] [place] [address] BASIC METABOLIC PANELon 02-0 Anion gap [Moles/Vol] 13 mmol/L Normal 7-20 [facility] Comment on above: Performed By: #### L [id number] #### [facility] ([facility]) [address] [place] [address] Calcium [Mass/Vol] 7.4 mg/dL Low 8.6-10.[address] [facility] Comment on above: Performed By: #### L [id number] #### [facility] ([facility]) [address] [place] [address] Chloride [Moles/Vol] 118 mmol/L High 98-107 [facility] Comment on above: Performed By: #### L [id number] #### [facility] ([facility]) [address] [place] [address] CO2 [Moles/Vol] 10 mmol/L Invalid Interpretation Code [facility] Comment on above: Performed By: #### L [id number] #### [facility] ([facility]) [address] [place] [address] Creatinine [Mass/Vol] 4.43 mg/dL High 0.60-1.20 [facility] Comment on above: Performed By: #### L [id number] #### [facility] ([facility]) [address] [place] [address] GLOMERULAR FILTRATION RATE ML/MIN/1.73 SQ M.PREDICTED 9.5 mL/min/1.73m*2 Low >60.0 [facility] Comment on above: Result Comment: The [facility]???s estimated glomerular filtration rate (eGFR) will no longer include consideration of race in its calculation. The [employer] Foundation???s eGFR Task Force developed new recommendations for the estimation of the glomerular filtration rate in the [place] They recommend immediate implementation of the new equation refit without the race variable in all laboratories because the calculation does not include race. In addition to not including race in the calculation and reporting, it included diversity in its development, and has acceptable performance characteristics and potential consequences that do not disproportionately affect any one group of individuals. Performed By: #### L [id number] #### [facility] ([facility]) [address] [place] [address] Glucose [Mass/Vol] 135 mg/dL High 70-[address] [facility] Comment on above: Performed By: #### L [id number] #### [facility] ([facility]) [address] [place] [address] Potassium [Moles/Vol] 5.1 mmol/L Normal 3.5-5.1 [facility] Comment on above: Performed By: #### L [id number] #### [facility] ([facility]) [address] [place] [address] Sodium [Moles/Vol] 136 mmol/L Normal 136-[address] [facility] Comment on above: Performed By: #### L [id number] #### [facility] ([facility]) [address] [place] [address] Urea nitrogen [Mass/Vol] 83 mg/dL High 7-25 [facility] Comment on above: Performed By: #### L [id number] #### [facility] ([facility]) [address] [place] [address] UREA NITROGEN/CREATININE (MASS RATIO) IN SER/PLAS 18.7 Normal [facility] Comment on above: Performed By: #### L [id number] #### [facility] ([facility]) [address] [place] [address] CBC WITH AUTO DIFFERENTIALon 01-08-2025 Basophils (Bld) [#/Vol] 0.03 10*3/uL Normal 0.00-0.20 [facility] Comment on above: Performed By: #### L [id number] #### [facility] ([facility]) [address] [place] [address] Basophils/100 WBC (Bld) 0.2 % Normal 0.0-1.0 [facility] Comment on above: Performed By: #### L [id number] #### [facility] ([facility]) [address] [place] [address] Eosinophils (Bld) [#/Vol] 0.07 10*3/uL Normal 0.00-0.50 [facility] Comment on above: Performed By: #### L [id number] #### [facility] ([facility]) [address] [place] [address] Eosinophils/100 WBC (Bld) 0.5 % Normal 0.0-6.0 [facility] Comment on above: Performed By: #### L [id number] #### [facility] ([facility]) [address] [place] [address] Erythrocyte distribution width (RBC) [Ratio] 15.3 % High 11.5-15.0 [facility] Comment on above: Performed By: #### L [id number] #### [facility] ([facility]) [address] [place] [address] ERYTHROCYTE MEAN CORPUSCULAR HEMOGLOBIN CONCENTRATION (G/DL) BY AUTOMATED 31.9 g/dL Low 32.0-35.0 [facility] Comment on above: Performed By: #### L [id number] #### [facility] ([facility]) [address] [place] [address] Hematocrit (Bld) [Volume fraction] 30.4 % Low 36.0-48.0 [facility] Comment on above: Performed By: #### L [id number] #### [facility] ([facility]) [address] [place] [address] Hemoglobin (Bld) [Mass/Vol] 9.7 g/dL Low 12.0-15.0 [facility] Comment on above: Performed By: #### L [id number] #### [facility] ([facility]) [address] [place] [address] Immature granulocytes (Bld) [#/Vol] 0.48 10*3/uL High 0.00-0.20 [facility] Comment on above: Performed By: #### L [id number] #### [facility] ([facility]) [address] [place] [address] Immature granulocytes/100 WBC (Bld) 3.2 % High 0.0-1.0 [facility] Comment on above: Performed By: #### L [id number] #### [facility] ([facility]) [address] [place] [address] Lymphocytes (Bld) [#/Vol] 0.59 10*3/uL Low 1.20-4.00 [facility] Comment on above: Performed By: #### L [id number] #### [facility] ([facility]) [address] [place] [address] Lymphocytes/100 WBC (Bld) 3.9 % Low 20.0-45.0 [facility] Comment on above: Performed By: #### L [id number] #### [facility] ([facility]) [address] [place] [address] MCH (RBC) [Entitic mass] 29.3 pg Normal 27.0-33.0 [facility] Comment on above: Performed By: #### L [id number] #### [facility] ([facility]) [address] [place] [address] MCV (RBC) [Entitic vol] 91.8 fL Normal 82.0-98.0 [facility] Comment on above: Performed By: #### L [id number] #### [facility] ([facility]) [address] [place] [address] Monocytes (Bld) [#/Vol] 0.66 10*3/uL Normal 0.10-1.00 [facility] Comment on above: Performed By: #### L [id number] #### [facility] ([facility]) [address] [place] [address] Monocytes/100 WBC (Bld) 4.3 % Low 5.0-12.0 [facility] Comment on above: Performed By: #### L [id number] #### [facility] ([facility]) [address] [place] [address] Neutrophils (Bld) [#/Vol] 13.40 10*3/uL High 1.60-7.60 [facility] Comment on above: Performed By: #### L [id number] #### [facility] ([facility]) [address] [place] [address] Neutrophils/100 WBC (Bld) 87.9 % High 40.0-72.0 [facility] Comment on above: Performed By: #### L [id number] #### [facility] ([facility]) [address] [place] [address] NRBC (PER 100 WBCS) BY AUTOMATED COUNT 0.0 % Normal 0 [facility] Comment on above: Performed By: #### L [id number] #### [facility] ([facility]) [address] [place] [address] PLATELETS (10*3/UL) IN BLOOD AUTOMATED COUNT 197 10*3/uL Normal 150-400 [facility] Comment on above: Performed By: #### L [id number] #### [facility] ([facility]) [address] [place] [address] RBC (Bld) [#/Vol] 3.31 10*6/uL Low 3.80-5.00 [facility] Comment on above: Performed By: #### L [id number] #### [facility] ([facility]) [address] [place] [address] WBC (Bld) [#/Vol] 15.23 10*3/uL High 4.00-10.60 [facility] Comment on above: Performed By: #### L [id number] #### [facility] ([facility]) [address] [place] [address] HEPATIC FUNCTION PANELon Albumin [Mass/Vol] 2.9 g/dL Low 3.5-5.[address] [facility] Comment on above: Performed By: #### L [id number] #### [facility] ([facility]) [address] [place] [address] ALP [Catalytic activity/Vol] 168 U/L High 34-104 [facility] Comment on above: Performed By: #### L [id number] #### [facility] ([facility]) [address] [place] [address] ALT [Catalytic activity/Vol] 26 U/L Normal 7-52 [facility] Comment on above: Performed By: #### L [id number] #### [facility] ([facility]) [address] [place] [address] AST [Catalytic activity/Vol] 20 U/L Normal 13-39 [facility] Comment on above: Performed By: #### L [id number] #### [facility] ([facility]) [address] [place] [address] Bilirubin [Mass/Vol] 0.3 mg/dL Normal 0.3-1.0 [facility] Comment on above: Performed By: #### L [id number] #### [facility] ([facility]) [address] [place] [address] Magnesium [Mass/Vol] 0.1 mg/dL Normal 0-0.2 [facility] Comment on above: Performed By: #### L [id number] #### [facility] ([facility]) [address] [place] [address] Protein [Mass/Vol] 4.8 g/dL Low 6.0-8.[address] [facility] Comment on above: Performed By: #### L [id number] #### [facility] ([facility]) [address] [place] [address] MAGNESIUMon 01-08-2025 Magnesium [Mass/Vol] 1.9 mg/dL Normal 1.9-2.7 [facility] Comment on above: Performed By: #### L [id number] #### [facility] ([facility]) [address] [place] [address] PHOSPHORUSon 01-08-2025 Magnesium [Mass/Vol] 4.9 mg/dL Normal 2.5-5.0 [facility] Comment on above: Performed By: #### L [id number] #### [facility] ([facility]) [address] [place] [address] PROTIME-INRon 01-08-2025 INR IN PPP BY COAGULATION ASSAY 1.44 High 0.90-1.10 [facility] Comment on above: Result Comment: ACCC P RECOMMENDED INR FOR WARFARIN THERAPY CONDITION INR PROPHYLAXIS OF VENOUS THROMBOSIS 2-3 (HIGH-RISK SURGERY) TREATMENT OF VENOUS THROMBOSIS 2-3 TREATMENT OF PULMONARY EMBOLISM 2-3 PREVENTION OF SYSTEMIC EMBOLISM: 2-3 ACUTE MYOCARDIAL INFARCTION TISSUE HEART VALVES VALVULAR HEART DISEASE ATRIAL FIBRILLATION RECURRENT SYSTEMIC EMBOLISM MECHANICAL HEART VALVE 2.5-3.5 FROM: ORAL ANTICOAGULANTS. MECHANISM OF ACTION, CLINICAL EFFECTIVENESS, AND OPTIMAL THERAPEUTIC RANGE. CHEST 1995;108:231S-246S. Performed By: #### L [id number] #### [facility] ([facility]) [address] [place] [address] PROTHROMBIN TIME (PT) IN PPP BY COAGULATION ASSAY 17.4 Seconds High 12.3-14.8 [facility] Comment on above: Performed By: #### L [id number] #### [facility] ([facility]) [address] [place] [address] TROPONIN Ion 01-08-2025 Troponin I.cardiac [Mass/Vol] 0.01 ng/mL Normal 0.00-0.04 [facility] Comment on above: Performed By: #### L [id number] #### [facility] ([facility]) [address] [place] [address] VENOUS BLOOD GAS WITH IONIZE D CALCIUMon 01-08-2025 Base excess Calc (BldV) [Moles/Vol] -18.55612 mmol/L Normal [facility] Comment on above: Performed By: #### L [id number] #### [facility] [address] [place] [address] [facility] CALCIUM IONIZED (MMOL/L) IN BLOOD 1.28 mmol/L Normal 1.15-1.33 [facility] Comment on above: Performed By: #### L [id number] #### [facility] [address] [place] [address] [facility] CO2 (BldV) [Partial pressure] 28 mm[Hg] Low 40-50 [facility] Comment on above: Performed By: #### L [id number] #### [facility] [address] [place] [address] [place] HCO3 (Bld) [Moles/Vol] 9.1 mmol/L Normal [facility] Comment on above: Performed By: #### L [id number] #### [facility] [address] [place] [address] [place] Oxygen (BldV) [Partial pressure] 53 mm[Hg] High 35-45 [facility] Comment on above: Performed By: #### L [id number] #### [facility] [address] [place] [address] [place] OXYGEN SATURATION (%) IN VENOUS BLOOD 85.0 % High 65.0-75.0 [facility] Comment on above: Performed By: #### L [id number] #### [facility] [address] [place] [address] [facility] PH OF VENOUS BLOOD 7.12 Invalid Interpretation Code 7.31-7.41 [facility] Comment on above: Performed By: #### L [id number] #### [facility] [address] 36on 10-01-2024 36 Regarding echo resul t [...] her aware. Scheduled her to see Dr. Daly on 10/26/2024. Patient verbalized understanding. [facility] Office Visiton 09-14-2024 Follow-up visit [id number] Sylvia Herrera 1945 Date Provider Department Center 09/14/2024 ANISHA JACOBS Family History Family history unknown: Yes Level of Service:31328 [place] OFFICE/OUTPATIENT ESTABLISHED MOD MDM 30 MIN [facility] 36on 07-22-2024 36 Patient made aware. I sent her tacrolimus order in the mail for her to have done at [facility] 1 week prior to seeing Dr. Daly for follow up on 09/14/2024. She verbalized understanding. [facility] 36on 07-21-2024 36 Regarding tacrolimus level drawn on 07/07/2024: MD Kaela Smith MA Did she have the echo? Her tacrolimus level is slightly high. I want a repeat in 2 months. *Dr. Daly, her echo was performed on 07/13/2024 and is scanned into [employer]. Will you review this and then I will call Sylvia. Thanks. [facility] Office Visiton 07-01-2024 Follow-up visit [id number] Sylvia Herrera 1945 Provider Department Center 07/01/2024 ANISHA JACOBS Family History Family history unknown: Yes Level of Service:56723 [place] OFFICE/OUTPATIENT ESTABLISHED MOD MDM 30 MIN [facility] Activated partial thrombopla stin time (aPTT) in platelet poor plasma by coagulation aOrdered By: NON STAFF on 06-18-2024 aPTT Coag (PPP) [Time] 31.8 s 25.1-36.5 [facility] Comment on above: A hematocrit value g reater than 55% may lead to inaccurate results in coagulation testing. Patients having hematocrit values >55% require a special collection tube for coagulation studies. Please contact the laboratory at [phone] for redraw instructions. INR in Platelet poor plasma by Coagulation assayOrdered By: NON STAFF on 06-18-2024 INR Coag (PPP) [Relative time] 1.3 {INR} Normal [facility] Comment on above: INR Therapeutic Rang e [...] Performed By: #### P TT, PT #### [facility] [address] [place] [address] [place] Partial Thromboplastin Timeo n 06-18-2024 aPTT Coag (Bld) [Time] 31.8 s Normal 25.1-36.5 [facility] Comment on above: Result Comment: A he matocrit value greater than 55% may lead to inaccurate results in coagulation testing. Patients having hematocrit values >55% require a special collection tube for coagulation studies. Please contact the laboratory at [phone] for redraw instructions. PERFORMED BY: [address] [address] PATHOLOGIST ALTERATIONS MANAGER ANDREIA ARRINGTON M.D. Performed By: #### P TT, PT #### [address] [place] [address] [facility] Prothrombin time (PT)Ordered By: NON STAFF on 06-18-2024 PT Coag (PPP) [Time] 14.4 s High 9.0-12.9 [facility] Comment on above: A hematocrit value g reater than 55% may lead to inaccurate results in coagulation testing. Patients having hematocrit values >55% require a special collection tube for coagulation studies. Please contact the laboratory at [phone] for redraw instructions. Result Comment: A he matocrit value greater than 55% may lead to inaccurate results in coagulation testing. Patients having hematocrit values >55% require a special collection tube for coagulation studies. Please contact the laboratory at [phone] for redraw instructions. Performed By: #### P TT, PT #### [facility] [address] [place] [address] [facility] 36on 04-06-2024 [...] labs as ordered at last visit. Normal [facility] Telephoneon 04-06-2024 Telephone [id number] Sylvia Herrera 1945 F Date Provider Department Center 04/06/2024 ANISHA JACOBS JULIAN Hernandez Family History Family history unknown: Yes Normal [facility] Orders Onlyon 03-18-2024 Orders Only [id number] Sylvia Herrera 1945 F Date Provider Department Center 03/18/2024 MITZY BRYANT Family History Family history unknown: Yes Normal [facility] CHEMISTRYOrdered By: SYSTEM SYSTEM on 04-08-2023 Anion gap [Moles/Vol] 11 mmol/L Normal 6 - 16 mEq/L [facility] Remisol Calcium [Mass/Vol] 8.6 mg/dL Low 8.9 - 11. 1 mg/dL [facility] Remisol Chloride [Moles/Vol] 99 mmol/L Low 101 - 1 11 mmol/L [facility] Remisol CO2 [Moles/Vol] 25 mmol/L Normal 21 - 31 mmol/L [facility] Remisol Creatinine [Mass/Vol] 1.3 mg/dL Normal 0.5 - 1.3 mg/dL [facility] Remisol GFR/1.73 sq M.predicted among non-blacks MDRD (S/P/Bld) [Vol rate/Area] 42 mL/min/1.73 m2 Low >=59mL/min/ 1.73 m2 [facility] S Glucose [Mass/Vol] 124 mg/dL Normal [...] 68.4 % Normal 36.0 - 75.0 % [facility] Neutrophils/Leukocyt es Auto (Bld) [Pure # fraction] 5.0 E9/L Normal 2.0 - 7.5 E9/L [facility] HEMATOLOGYOrdered By: Raymond Strauss on 04-07-2023 [...] 32.7 g/dL Normal 31.4 - 36.0 gm/dL [facility] MCV (RBC) [Entitic vol] 85.3 fL [...] Normal 4.0 - 11.0 E9/L [facility] HemeAutoSS INFLUENZA A AND B AGon 03-05 INFLUANEGH SEE BELOW Normal [facility] Comment on above: Result Comment: Nega tive for Flu A protein angiten. Infection due to Flu A cannot be ruled out. Flu A angiten in the sample may be below the detection limit of the test. Performed By: #### E RUR #### [facility] [address] [place] [address] [address] Hardeep Rivera [facility] SEE BELOW Normal [facility] Comment on above: Result Comment: Nega tive for Flu B protein antigen. Infection due to Flu B cannot be ruled out. Flu B antigen in the sample may be below the detection limit of the test. Performed By: #### E RUR #### [facility] [address] [address] [address] Hardeep Rivera INFLUENZA A AG Negative Normal NEGATIVE SEE COMMENT [facility] Comment on above: Performed By: #### E RUR #### [facility] [address] [place] [address] Dr. Hardeep Rivera INFLUENZA B AG Negative Normal NEGATIVE SEE COMMENT [facility] Comment on above: Performed By: #### E RUR #### [facility] [address] [place] [address] Dr. Hardeep Rivera SYMPTOMATIC COVID-19 ANTIGEN on 03-05-2023 EUA Statement SEE BELOW Normal [facility] Comment on above: Result Comment: [...] Performed By: #### C VDAGS ####[facility] [id number] [address]Dr. Hardeep Rivera SARS-CoV-2 (COVID-19) RNA ULICES+probe Ql (Unsp spec) Positive Abnormal NEGATIVE [facility] Comment on above: Performed By: #### C VDAGS ####[facility] [id number] [address]Dr. Hardeep Rivera FK506 (TACROLIMUS) WHOLE BLO ODon 02-28-2023 Tacrolimus (FK506), Blood 5.8 ng/mL Normal 2.0-20.0 [facility] Comment on above: Result Comment: Trou gh (immediately following transplant) 15.0 . Trough (steady state, 2 weeks or more after transplant): 3.0 - 8.0 . Performed by LC-MS/MS technology. Performed By: #### F [id number] ####[facility] [id number] [address]Dr. Hardeep Rivera CBC AUTO DIFFon 02-14-2023 BASO # 0.0 103/ul Normal 0.0-0.1 [facility] Comment on above: Performed By: #### Deedee PINON UMICRO #### [facility] [address] [place] [address] Dr. Hardeep Rivera Basophils/100 WBC (Bld) 0.5 % Normal 0.2-2.0 [facility] Comment on above: Performed By: #### Deedee PINON, UMICRO #### [facility] [address] [place] [address] Dr. Hardeep Rivera EO # 0.2 103/ul Normal 0.0-0.7 [facility] Comment on above: Performed By: #### Deedee PINON, UMICRO #### [facility] [address] [place] [address] Dr. Hardeep Rivera Eosinophils/100 WBC (Bld) 3.5 % Normal 0.9-7.0 [facility] Comment on above: Performed By: #### Deedee PINON, UMICRO #### [facility] [address] [address] [address] Hardeep Rivera Erythrocyte distribution width (RBC) [Ratio] 12.3 % Normal 11.0-15.0 [facility] Comment on above: Performed By: #### Deedee PINON, UMICRO #### [facility] [address] [place] [address] Dr. Hardeep Rivera Hematocrit (Bld) [Volume fraction] 38.7 % Normal 36.0-48.0 [facility] Comment on above: Performed By: #### HARI OLSONRO #### [facility] [address] [place] [address] Dr. Hardeep Rivera Hemoglobin (Bld) [Mass/Vol] 12.6 g/dL Normal 12.0-16.0 [facility] Comment on above: Performed By: #### HARI OLSONRO #### [facility] [address] [place] [address] Dr. Hardeep Rivera IG # 0.03 10e3/ul Normal 0.00-0.03 [facility] Comment on above: Performed By: #### HARI OLSONRO #### [facility] [address] [place] [address] Dr. Hardeep Rivera IG % 0.5 % Normal 0.0-0.5 [facility] Comment on above: Performed By: #### HARI OLSONRO #### [facility] [address] [place] [address] Dr. Hardeep Rivera LYMPH # 0.8 103/ul Critically low 1.2-3.8 [facility] Comment on above: Performed By: #### HARI OLSONRO #### [facility] [address] [place] [address] Dr. Hardeep Rivera Lymphocytes/100 WBC (Bld) 13.2 % Critically low 20.5-60.0 [facility] Comment on above: Performed By: #### HARI OLSONRO #### [facility] [address] [place] [address] Dr. Hardeep Rivera MANUAL DIFF REQ NO Normal [facility] Comment on above: Performed By: #### HARI OLSONRO #### [facility] [address] [place] [address] Dr. Hardeep Rivera MCH (RBC) [Entitic mass] 28.3 pg Normal 26.7-34.0 [facility] Comment on above: Performed By: #### HARI OLSONRO #### [facility] [address] [place] [address] Dr. Hardeep Rivera MCHC (RBC) [Mass/Vol] 32.6 g/dL Normal 29.9-35.2 [facility] Comment on above: Performed By: #### Deedee PINON UMICRO #### [facility] [address] [place] [address] Dr. Hardeep Rivera MCV (RBC) [Entitic vol] 87.0 fL Normal 81.0-99.0 [facility] Comment on above: Performed By: #### Deedee PINON, UMICRO #### [facility] [address] [place] [address] Dr. Hardeep Rivera MONO # 0.8 103/ul Normal 0.3-0.8 [facility] Comment on above: Performed By: #### Deedee PINON, UMICRO #### [facility] [address] [place] [address] Dr. Hardeep Rivera Monocytes/100 WBC (Bld) 12.9 % Critically high 1.7-12.0 [facility] Comment on above: Performed By: #### Deedee PINON UMICRO #### [facility] [address] [place] [address] Dr. Hardeep Rivera NEUT # 4.4 103/ul Normal 1.4-6.5 [facility] Comment on above: Performed By: #### Deedee PINON, UMICRO #### [facility] [address] [place] [address] Dr. Hardeep Rivera Neutrophils/100 WBC (Bld) 69.4 % Normal 43.0-75.0 [facility] Comment on above: Performed By: #### Deedee PINON, UMICRO #### [facility] [address] [place] [address] Dr. Hardeep Rivera Platelet mean volume (Bld) [Entitic vol] 9.0 fL Critically low 9.5-13.5 [facility] Comment on above: Performed By: #### Deedee PINON, UMICRO #### [facility] [address] [place] [address] Dr. Hardeep Rivera PLT 205 103/ul Normal 150-450 [facility] Comment on above: Performed By: #### RANDALL OLSON #### [facility] [address] [place], [place] [address] Dr. Hardeep Rivera RBC 4.45 106/ul Normal 4.20-5.40 [facility] Comment on above: Performed By: #### RANDALL OLSON #### [facility] [address] [place], [place] [address] Dr. Hardeep Rivera WBC 6.3 103/ul Normal 4.0-11.0 [facility] Comment on above: Performed By: #### HARI OLSONRO #### [facility] [address] [place], [place] [address] HEAD WO CONon [...] unchanged from 2016 likely relating to dystrophic calcification/mineralizatio n. Stable mild patchy hypoattenuation involving the supratentorial [...] Date: 2023-02-14 15:46 Normal [facility] ER URINE PROFILEon 3 Bilirubin Ql (U) Negative Normal NEGATIVE [facility] Comment on above: Performed By: #### E RUR, UMICRO #### [facility] [address] [place] [address] Dr. Hardeep Rivera Clarity (U) CLEAR Normal CLEAR [facility] Comment on above: Performed By: #### AKSHAT OLSONICRO #### [facility] [address] [place] [address] Dr. Hardeep Rivera Color (U) LT. YELLOW Normal YELLOW [facility] Comment on above: Performed By: #### HARI OLSONRO #### [facility] [address] [place] [address] Dr. Hardeep Rivera ERUAHJuan A micrscopic examina tion will be performed if indicated. Normal [facility] Comment on above: Performed By: #### Deedee PINON UMICRO #### [facility] [address] [place] [address] Dr. Hardeep Rivera Glucose Ql (U) Negative Normal NEGATIVE [facility] Comment on above: Performed By: #### AKSHAT OLSONICRO #### [facility] [address] [place] [address] Dr. Hardeep Rivera Hemoglobin Ql (U) TRACE-INTACT Abnormal NEGATIVE [facility] Comment on above: Performed By: #### HARI OLSONRO #### [facility] [address] [place] [address] Dr. Hardeep Rivera Ketones Ql (U) Negative Normal NEGATIVE [facility] Comment on above: Performed By: #### HARI OLSONRO #### [facility] [address] [place] [address] Dr. Hardeep Rivera LEUKOCYTES Negative Normal NEGATIVE [facility] Comment on above: Performed By: #### HARI OLSONRO #### [facility] [address] [place] [address] Dr. Hardeep Rivera Nitrite Ql (U) Negative Normal NEGATIVE [facility] Comment on above: Performed By: #### AKSHAT OLSONICRO #### [facility] [address] [place] [address] Dr. Hardeep Rivera pH (U) 7.0 [pH] Normal 5-9 [facility] Comment on above: Performed By: #### HARI OLSONRO #### [facility] [address] [place] [address] Dr. Hardeep Rivera Protein (U) [Mass/Vol] 30 mg/dL Abnormal NEGATIVE/ TRACE [facility] Comment on above: Performed By: #### HARI OLSONRO #### [facility] [address] [place] [address] Dr. Hardeep Rivera SPEC GRAVITY 1.010 Normal 1.005-<=1.0 25 [facility] Comment on above: Performed By: #### HARI OLSONRO #### [facility] [address] [place] [address] Dr. Hardeep Rivera UR MICRO IND INDICATED Normal [facility] Comment on above: Performed By: #### HARI OLSONRO #### [facility] [address] [place] [address] Dr. Hardeep Rivera Urobilinogen Qn (U) 0.2 {Kevon'U}/dL Normal 0.2 - 1. 0 [facility] Comment on above: Performed By: #### HARI OLSONRO #### [facility] [address] [place] [address] Dr. Hardeep Rivera PROF 14(COMP METB)on 023 Albumin [Mass/Vol] 3.5 g/dL Normal 3.4-5.0 [facility] Comment on above: Performed By: #### H STROPN, CMP, TSH ####[facility] [address] [place] [address]Dr. Hardeep Rivera Albumin/Globulin [Mass ratio] 1.2 {ratio} Normal [facility] Comment on above: Performed By: #### H STRONATHANIEL, CMP, TSH ####[facility] [address] [place] [address]Dr. Hardeep Rivera ALP [Catalytic activity/Vol] 153 U/L Critically high 46-116 [facility] Comment on above: Performed By: #### H STROPN, CMP, TSH ####[facility] [address] [place] [id number]. Hardeep Rivera ALT [Catalytic activity/Vol] 21 U/L Normal 14-59 [facility] Comment on above: Performed By: #### H STRONATHANIEL, CMP, TSH ####[facility] [address] [place] [id number]. Hardeep Rivera Anion gap [Moles/Vol] 9.3 mmol/L Normal [facility] Comment on above: Performed By: #### H STROPN, CMP, TSH ####[facility] [address] [place] [id number]. Hardeep Rivera AST [Catalytic activity/Vol] 23 U/L Normal 15-37 [facility] Comment on above: Performed By: #### H STRONATHANIEL, CMP, TSH ####[facility] [address] [place] [address]Dr. Hardeep Rivera Bilirubin [Mass/Vol] 0.6 mg/dL Normal 0.2-1.0 [facility] Comment on above: Performed By: #### H STROPN, CMP, TSH ####[facility] [address] [place] [address]Dr. Hardeep Rivera Calcium [Mass/Vol] 8.4 mg/dL Critically low 8.5-10.[address] [facility] Comment on above: Performed By: #### H STRONATHANIEL, CMP, TSH ####[facility] [address] [place] [address]Dr. Hardeep Rivera Chloride [Moles/Vol] 96 mmol/L Critically low 98-107 [facility] Comment on above: Performed By: #### H STROPN, CMP, TSH ####[facility] [address] [place] [phone]. Hardeep Rivera CO2 [Moles/Vol] 29.3 mmol/L Normal 21.0-32.0 [facility] Comment on above: Performed By: #### H STROPN, CMP, TSH ####[facility] [address] [place] [address]Dr. Hardeep Rivera Creatinine [Mass/Vol] 1.16 mg/dL Critically high 0.55-1.02 [facility] Comment on above: Performed By: #### H STRONATHANIEL CMP, TSH ####[facility] [address] [place] [address]Dr. Hardeep Rivera EGFR-AF WELSH 55 mL/min/1.73m2 Critically low >=60 [facility] Comment on above: Performed By: #### H STRONATHANIEL CMP, TSH ####[facility] [address] [place] [address]Dr. Preethilan Rivera EGFR-NON AF WELSH 45 mL/min/1.73m2 Critically low >=60 [facility] Comment on above: Performed By: #### H TYLER CMP, TSH ####[facility] [address] [place] [address]Dr. Hardeep Rivera Globulin (S) [Mass/Vol] 2.9 g/dL Normal [facility] Comment on above: Performed By: #### H TYLER CMP, TSH ####[facility] [address] [place], [place] [address]Dr. Hardeep Rivera Glucose [Mass/Vol] 105 mg/dL Normal 74-106 [facility] Comment on above: Performed By: #### H TYLER CMP, TSH ####[facility] [address] [place], [place] [address]Dr. Hardeep Rivera Potassium [Moles/Vol] 4.6 mmol/L Normal 3.5-5.1 [facility] Comment on above: Performed By: #### H STRONATHANIEL, CMP, TSH ####[facility] [address] [place] [address]Dr. Preethilan Rivera Protein [Mass/Vol] 6.4 g/dL Normal 6.4-8.2 [facility] Comment on above: Performed By: #### H STRONATHANIEL, CMP, TSH ####[facility] [address] [place] [address]Dr. Hardeep Rivera Sodium [Moles/Vol] 130 mmol/L Critically low 136-[address] [facility] Comment on above: Performed By: #### H STROPN, CMP, TSH ####[facility] [address] [place] [address]Dr. Hardeep Rivera Urea nitrogen [Mass/Vol] 27.0 mg/dL Critically high 7.0-18.0 [facility] Comment on above: Performed By: #### H TYLER, CMP, TSH ####[facility] [address] [place] [address]Dr. Hardeep Rivera Urea nitrogen/Creatinine [Mass ratio] 23.3 mg/mg Normal [facility] Comment on above: Performed By: #### H TYLER, CMP, TSH ####[facility] [address] [place] [address]Dr. Hardeep Rivera PROTIMEon 02-14-2023 INR Coag (PPP) [Relative time] 1.07 {INR} Normal [facility] Comment on above: Performed By: #### P T, PTT ####[facility] [address] [place], [place] [address]Dr. Hardeep Rivera INR GUIDELINES SEE BELOW Normal [facility] Comment on above: Result Comment: EDMUND RED INR: 2.0 - 3.0 CONDITIONS NOT LISTED BELOW 2.5 - 3.5 FOR PROSTHETIC HEART VALVE REPLACEMENT 2.5 - 3.5 RECURRENT THROMBOSIS Performed By: #### P T, PTT ####[facility] [address] [place], [place] [address]Dr. Hardeep Rivera PT Coag (PPP) [Time] 11.3 s Normal 9.0-11.6 [facility] Comment on above: Performed By: #### P T, PTT ####[facility] [address] [place], [place] [address]Dr. Hardeep Rivera PTTon 02-14-2023 aPTT Coag (Bld) [Time] 29.1 s Normal 22.3-36.2 [facility] Comment on above: Performed By: #### P T, PTT ####[facility] [address] [place], [place] [address]Dr. Hardeep Rivera TROPONIN, HIGH SENSITIVITYon 02-14-2023 HSTROP 10.4 pg/mL Normal 4.0-51.3 [facility] Comment on above: Result Comment: CUT- OFF POINTS HAVE BEEN ESTABLISHED BASED ON THE FOURTH UNIVERSAL DEFINITIONS OF MYOCARDIAL INFARCTION. THE UPPER REFERENCE LIMIT (URL) OF TROPONIN, DEFINED THE 99TH PERCENTILE OF cTnI DISTRIBUTION IN A REFERENCE POPULATION, HAS BEEN CONFIRMED THE DECISION THRESHOLD FOR MT DIAGNOSIS. Performed By: #### H TYLER, GLADIS, TSH ####[facility] [address] [place] [address]Dr. Hardeep Rivera TSHon 02-14-2023 TSH 1.237 uIU/mL Normal 0.358-3.740 [facility] Comment on above: Performed By: #### H TYLER, CMP, TSH ####[facility] [address] [place] [address]DrLaura Rivera URINE MICROSCOPIC ONLYon BACTERIA NONE SEEN Normal NONE SEEN [facility] Comment on above: Performed By: #### E RUR, UMICRO #### [facility] [address] [place] [address] Dr. Hardeep Rivera Bacteria identified Cx Nom (U) NOT INDICATED Normal [facility] Comment on above: Performed By: #### E RUR, UMICRO #### [facility] [address] [place] [address] Dr. Hardeep Rivera CAST NONE SEEN Normal NONE SEEN [facility] Comment on above: Performed By: #### E RUR, UMICRO #### [facility] [address] [place] [address] Dr. Hardeep Rivera Crystals LM Nom (Urine sed) NONE SEEN Normal NONE SEEN [facility] Comment on above: Performed By: #### E RUR, UMICRO #### [facility] [address] [place] [address] Dr. Hardeep Rivera Epithelial cells LM Ql (Urine sed) NONE SEEN Normal NONE SEEN /RARE [facility] Comment on above: Performed By: #### E RUR, UMICRO #### [facility] [address] [place] [address] Dr. Hardeep Rivera MUCOUS NONE SEEN Normal NONE SEEN [facility] Comment on above: Performed By: #### E RUR, UMICRO #### [facility] [address] [place] [address] [address] Hardeep Rivera RBC 0-2 Normal 0-2 [facility] Comment on above: Performed By: #### RANDALL OLSON #### [facility] [address] [place] [address] [address] Hardeep Rivera WBC NONE SEEN Normal NONE SEEN [facility] Comment on above: Performed By: #### RANDALL OLSON #### [facility] [address] [place] [address] [address] Hardeep Rivera XR CHEST 1 Von [...] Date: 2023-02-14 15:50 Normal [facility] FK506 (TACROLIMUS) WHOLE BLO ODon 02-13-2023 Tacrolimus (FK506), Blood 1.4 ng/mL Critically low 2.0-20.0 [facility] Comment on above: Result Comment: Trou gh (immediately following transplant) 15.0 . Trough (steady state, 2 weeks or more after transplant): 3.0 - 8.0 . Performed by LC-MS/MS technology. Performed By: #### Deedee PINON #### [facility] [address] [place] [address] Dr. Hardeep Rivera PROF 14(COMP METB)on 023 Albumin [Mass/Vol] 3.5 g/dL Normal 3.4-5.0 [facility] Comment on above: Performed By: #### C MP ####[facility] [address] [place] [address]Dr. Hardeep Rivera Albumin/Globulin [Mass ratio] 1.2 {ratio} Normal [facility] Comment on above: Performed By: #### C MP ####[facility] [address] [place] [address]Dr. Hardeep Rivera ALP [Catalytic activity/Vol] 149 U/L Critically high 46-116 [facility] Comment on above: Performed By: #### C MP ####[facility] [address] [place] [address]Dr. Hardeep Rivera ALT [Catalytic activity/Vol] 19 U/L Normal 14-59 [facility] Comment on above: Performed By: #### C MP ####[facility] [address] [place] [address]Dr. Hardeep Miguel Anion gap [Moles/Vol] 11.7 mmol/L Normal [facility] Comment on above: Performed By: #### C MP ####[facility] [address] [place], [place] [address]Dr. Hardeep Miguel AST [Catalytic activity/Vol] 27 U/L Normal 15-37 [facility] Comment on above: Performed By: #### C MP ####[facility] [address] [place], [place] [address]Dr. Hardeep Miguel Bilirubin [Mass/Vol] 0.6 mg/dL Normal 0.2-1.0 [facility] Comment on above: Performed By: #### C MP ####[facility] [address] [place], [place] [address]Dr. Hardeep Miguel Calcium [Mass/Vol] 8.5 mg/dL Normal 8.5-10.1 [facility] Comment on above: Performed By: #### C MP ####[facility] [address] [place], [place] [address]Dr. Hardeep Miguel Chloride [Moles/Vol] 96 mmol/L Critically low 98-107 [facility] Comment on above: Performed By: #### C MP ####[facility] [address] [place], [place] [address]Dr. Hardeep Miguel CO2 [Moles/Vol] 28.1 mmol/L Normal 21.0-32.0 [facility] Comment on above: Performed By: #### C MP ####[facility] [address] [place], [place] [address]Dr. Hardeep Miguel Creatinine [Mass/Vol] 1.24 mg/dL Critically high 0.55-1.02 [facility] Comment on above: Performed By: #### C MP ####[facility] [address] [place] [address]Dr. Hardeep Rivera EGFR-AF WELSH 51 mL/min/1.73m2 Critically low >=60 [facility] Comment on above: Performed By: #### C MP ####[facility] [address] [place] [address]Dr. Hardeep Rivera EGFR-NON AF WELSH 42 mL/min/1.73m2 Critically low >=60 [facility] Comment on above: Performed By: #### C MP ####[facility] [address] [place], [place] [address]Dr. Hardeep Rivera Globulin (S) [Mass/Vol] 3.0 g/dL Normal [facility] Comment on above: Performed By: #### C MP ####[facility] [address] [place] [address]Dr. Hardeep Rivera Glucose [Mass/Vol] 141 mg/dL Critically high 74-106 [facility] Comment on above: Performed By: #### C MP ####[facility] [address] [place], [place] [address]Dr. Hardeep Rivera Potassium [Moles/Vol] 4.8 mmol/L Normal 3.5-5.1 [facility] Comment on above: Performed By: #### C MP ####[facility] [address] [place] [address]Dr. Hardeep Rivera Protein [Mass/Vol] 6.5 g/dL Normal 6.4-8.2 [facility] Comment on above: Performed By: #### C MP ####[facility] [address] [place] [address]Dr. Hardeep Rivera Sodium [Moles/Vol] 131 mmol/L Critically low 136-[address] [facility] Comment on above: Performed By: #### C MP ####[facility] [address] [place], [place] [address]Dr. Hardeep Rivera Urea nitrogen [Mass/Vol] 29.0 mg/dL Critically high 7.0-18.0 [facility] Comment on above: Performed By: #### C MP ####[facility] [address] [place] [address]Dr. Hardeep Rivera Urea nitrogen/Creatinine [Mass ratio] 23.4 mg/mg Normal [facility] Comment on above: Performed By: #### C MP ####[facility] [address] [place] [address]DrLaura Rivera BNPon 01-09-2023 Natriuretic peptide B (Bld) [Mass/Vol] 336.0 pg/mL Normal <=1,800.0 [facility] Comment on above: Performed By: #### C MP, TSH, BNP, T7 ####[facility] [address] [place] [address]DrLaura Rivera CBC AUTO DIFFon 01-09-2023 BASO # 0.0 103/ul Normal 0.0-0.1 [facility] Comment on above: Performed By: #### C BC #### [facility] [address] [place] [address] Dr. Hardeep Rivera Basophils/100 WBC (Bld) 0.4 % Normal 0.2-2.0 [facility] Comment on above: Performed By: #### C BC #### [facility] [address] [place] [address] Dr. Hardeep Rivera EO # 0.3 103/ul Normal 0.0-0.7 [facility] Comment on above: Performed By: #### C BC #### [facility] [address] [place] [address] Dr. Hardeep Rivera Eosinophils/100 WBC (Bld) 4.4 % Normal 0.9-7.0 [facility] Comment on above: Performed By: #### C BC #### [facility] [address] [place] [address] Dr. Hardeep Rivera Erythrocyte distribution width (RBC) [Ratio] 12.3 % Normal 11.0-15.0 [facility] Comment on above: Performed By: #### C BC #### [facility] [address] [place] [address] Dr. Hardeep Rivera Hematocrit (Bld) [Volume fraction] 43.3 % Normal 36.0-48.0 [facility] Comment on above: Performed By: #### C BC #### [facility] [address] [place] [address] Dr. Hardeep Rivera Hemoglobin (Bld) [Mass/Vol] 13.5 g/dL Normal 12.0-16.0 [facility] Comment on above: Performed By: #### C BC #### [facility] [address] [place] [address] Dr. Hardeep Rivera IG # 0.02 10e3/ul Normal 0.00-0.03 [facility] Comment on above: Performed By: #### C BC #### [facility] [address] [place] [address] Dr. Hardeep Rivera IG % 0.3 % Normal 0.0-0.5 [facility] Comment on above: Performed By: #### C BC #### [facility] [address] [place] [address] Dr. Hardeep Rivera LYMPH # 1.1 103/ul Critically low 1.2-3.8 [facility] Comment on above: Performed By: #### C BC #### [facility] [address] [place] [address] Dr. Hardeep Rivera Lymphocytes/100 WBC (Bld) 16.0 % Critically low 20.5-60.0 [facility] Comment on above: Performed By: #### C BC #### [facility] [address] [place] [address] Dr. Hardeep Rivera MANUAL DIFF REQ NO Normal [facility] Comment on above: Performed By: #### C BC #### [facility] [address] [place] [address] Dr. Hardeep Rivera MCH (RBC) [Entitic mass] 28.4 pg Normal 26.7-34.0 [facility] Comment on above: Performed By: #### C BC #### [facility] [address] [place] [address] Dr. Hardeep Rivera MCHC (RBC) [Mass/Vol] 31.2 g/dL Normal 29.9-35.2 [facility] Comment on above: Performed By: #### C BC #### [facility] [address] [place] [address] Dr. Hardeep Rivera MCV (RBC) [Entitic vol] 91.0 fL Normal 81.0-99.0 [facility] Comment on above: Performed By: #### C BC #### [facility] [address] [place] [address] Dr. Hardeep Rivera MONO # 1.0 103/ul Critically high 0.3-0.8 [facility] [facility] Comment on above: Performed By: #### C BC #### [facility] [address] [place] [address] Dr. Hardeep Rivera Monocytes/100 WBC (Bld) 14.7 % Critically high 1.7-12.0 [facility] Comment on above: Performed By: #### C BC #### [facility] [address] [place] [address] Dr. Hardeep Rivera NEUT # 4.4 103/ul Normal 1.4-6.5 [facility] Comment on above: Performed By: #### C BC #### [facility] [address] [place] [address] Dr. Hardeep Rivera Neutrophils/100 WBC (Bld) 64.2 % Normal 43.0-75.0 [facility] Comment on above: Performed By: #### C BC #### [facility] [address] [place] [address] Dr. Hardeep Rivera Platelet mean volume (Bld) [Entitic vol] 9.5 fL Normal 9.5-13.5 [facility] Comment on above: Performed By: #### C BC #### [facility] [address] [place] [address] Dr. Hardeep Rivera PLT 238 103/ul Normal 150-450 [facility] Comment on above: Performed By: #### C BC #### [facility] [address] [place] [address] Dr. Hardeep Rivera RBC 4.76 106/ul Normal 4.20-5.40 [facility] Comment on above: Performed By: #### C BC #### [facility] [address] [address] [address] Hardeep Rivera WBC 6.8 103/ul Normal 4.0-11.0 [facility] Comment on above: Performed By: #### C BC #### [facility] [address] [address] [address] Hardeep Rivera FREE THYROXINE INDEX T7on FTI 3.96 Normal 1.30-4.50 [facility] Comment on above: Performed By: #### C MP, TSH, BNP, T7 ####[facility] [address] [address]DrLaura Rivera T3U 35.0 % Normal 30.0-39.0 [facility] Comment on above: Performed By: #### C MP, TSH, BNP, T7 ####[facility] [address] [address]DrLaura Rivera T4 [Mass/Vol] 11.30 ug/dL Normal 4.80-13.90 [facility] Comment on above: Performed By: #### C MP, TSH, BNP, T7 ####[facility] [address] [address]DrLaura Rivera PROF 14(COMP METB)on 023 Albumin [Mass/Vol] 3.9 g/dL Normal 3.4-5.0 [facility] Comment on above: Performed By: #### C MP, TSH, BNP, T7 ####[facility] [address] [address]DrLaura Rivera Albumin/Globulin [Mass ratio] 1.2 {ratio} Normal [facility] Comment on above: Performed By: #### C MP, TSH, BNP, T7 ####[facility] [address] [address]DrLaura Rivera ALP [Catalytic activity/Vol] 151 U/L Critically high 46-116 [facility] Comment on above: Performed By: #### C MP, TSH, BNP, T7 ####[facility] [address] [address]Dr. Hardeep Rivera ALT [Catalytic activity/Vol] 30 U/L Normal 14-59 [facility] Comment on above: Performed By: #### C MP, TSH, BNP, T7 ####[facility] [address] [address]Dr. Hardeep Rivera Anion gap [Moles/Vol] 15.6 mmol/L Normal [facility] Comment on above: Performed By: #### C MP, TSH, BNP, T7 ####[facility] [address] [place], [place] [address]Dr. Hardeep Rivera AST [Catalytic activity/Vol] 23 U/L Normal 15-37 [facility] Comment on above: Performed By: #### C MP, TSH, BNP, T7 ####[facility] [address] [place], [place] [address]Dr. Hardeep Rivera Bilirubin [Mass/Vol] 0.7 mg/dL Normal 0.2-1.0 [facility] Comment on above: Performed By: #### C MP, TSH, BNP, T7 ####[facility] [address] [place], [place] [address]Dr. Hardeep Rivera Calcium [Mass/Vol] 9.0 mg/dL Normal 8.5-10.1 [facility] Comment on above: Performed By: #### C MP, TSH, BNP, T7 ####[facility] [address] [place], [place] [address]Dr. Hardeep Rivera Chloride [Moles/Vol] 97 mmol/L Critically low 98-107 [facility] Comment on above: Performed By: #### C MP, TSH, BNP, T7 ####[facility] [address] [place], [place] [address]Dr. Hardeep Rivera CO2 [Moles/Vol] 26.1 mmol/L Normal 21.0-32.0 [facility] Comment on above: Performed By: #### C MP, TSH, BNP, T7 ####[facility] [address] [address]Dr. Hardeep Rivera Creatinine [Mass/Vol] 1.78 mg/dL Critically high 0.55-1.02 [facility] Comment on above: Performed By: #### C MP, TSH, BNP, T7 ####[facility] [address] [address]Dr. Hardeep Miguel EGFR-AF WELSH 33 mL/min/1.73m2 Critically low >=60 [facility] Comment on above: Performed By: #### C MP, TSH, BNP, T7 ####[facility] [address] [address]Dr. Hardeep Miguel EGFR-NON AF WELSH 28 mL/min/1.73m2 Critically low >=60 [facility] Comment on above: Performed By: #### C MP, TSH, BNP, T7 ####[facility] [address] [place], [place] [address]Dr. Hardeep Rivera Globulin (S) [Mass/Vol] 3.3 g/dL Normal [facility] Comment on above: Performed By: #### C MP, TSH, BNP, T7 ####[facility] [address] [place], [place] [address]Dr. Preethiarabella Miguel Glucose [Mass/Vol] 127 mg/dL Critically high 74-106 T [facility] Comment on above: Performed By: #### C MP, TSH, BNP, T7 ####[facility] [address] [place], [place] [address]Dr. Hardeep Rivera Potassium [Moles/Vol] 3.7 mmol/L Normal 3.5-5.1 [facility] Comment on above: Performed By: #### C MP, TSH, BNP, T7 ####[facility] [address] [place], [place] [address]Dr. Hardeep Rivera Protein [Mass/Vol] 7.2 g/dL Normal 6.4-8.2 [facility] Comment on above: Performed By: #### C MP, TSH, BNP, T7 ####[facility] [address] [place], [place] [address]Dr. Hardeep Rivera Sodium [Moles/Vol] 135 mmol/L Critically low 136-145 Th e [facility] Comment on above: Performed By: #### C MP, TSH, BNP, T7 ####[facility] [address] [address]Dr. Hardeep Rivera Urea nitrogen [Mass/Vol] 54.0 mg/dL Critically high 7.0-18.0 [facility] Comment on above: Performed By: #### C MP, TSH, BNP, T7 ####[facility] [address] [id number]. Hardeep Rivera Urea nitrogen/Creatinine [Mass ratio] 30.3 mg/mg Normal [facility] Comment on above: Performed By: #### C MP, TSH, BNP, T7 ####[facility] [address] [address]Dr. Hardeep Rivera TSHon 01-09-2023 TSH 1.097 uIU/mL Normal 0.358-3.740 [facility] Comment on above: Performed By: #### C MP, TSH, BNP, T7 ####[facility] [address] [address]Dr. Hardeep Rivera ECHOCARDIO M/2D COMPLETEon 0 12-13-2022 ECHOCARDIO M/2D COMPLETE Patient: SYLVIA HERRERA Exam Date: 12/13/2022 : 1945 Gender:F Ordering : [facility] Admission #: [id number] Family : Order #: [id number] CLICK HERE TO VIEW EXAM ECHOCARDIOGRAM REPORT [...] Area (VTI): 2.23 cm2, 2.23 cm2 Deceleration Bulloch: 1.44 m/s2 Pressure Half-Time: 850.98 ms Peak [...] Nolan M.D. on 12/14/2022 at 13:49 Normal [facility] US KT DOP LEG BILon 023 US KT DOP LEG TRISHA EXAMINATION: US KT DOP LEG TRISHA HISTORY: Localized edema ; [...] Date: 2022-12-13 10:51 Normal [facility] BNPon 12-11-2022 Natriuretic peptide B (Bld) [Mass/Vol] 457.0 pg/mL Normal <=1,800.0 [facility] Comment on above: Performed By: #### RANDALL OLSON #### [facility] [address] [place] [address] Dr. Hardeep Rivera CBC AUTO DIFFon 12-11-2022 BASO # 0.0 103/ul Normal 0.0-0.1 [facility] Comment on above: Performed By: #### RANDALL OLSON #### [facility] [address] [place] [address] Dr. Hardeep Rivera Basophils/100 WBC (Bld) 0.4 % Normal 0.2-2.0 [facility] Comment on above: Performed By: #### RANDALL OLSON #### [facility] [address] [place] [address] Dr. Hardeep Rivera EO # 0.2 103/ul Normal 0.0-0.7 [facility] Comment on above: Performed By: #### RANDALL OLSON #### [facility] [address] [place] [address] Dr. Hardeep Rivera Eosinophils/100 WBC (Bld) 2.7 % Normal 0.9-7.0 [facility] Comment on above: Performed By: #### RANDALL OLSON #### [facility] [address] [place] [address] Dr. Hardeep Rivera Erythrocyte distribution width (RBC) [Ratio] 11.9 % Normal 11.0-15.0 [facility] Comment on above: Performed By: #### RANDALL OLSON #### [facility] [address] [place] [address] Dr. Hardeep Rivera Hematocrit (Bld) [Volume fraction] 40.2 % Normal 36.0-48.0 [facility] Comment on above: Performed By: #### HARI OLSONRO #### [facility] [address] [place] [address] Dr. Hardeep Rivera Hemoglobin (Bld) [Mass/Vol] 13.5 g/dL Normal 12.0-16.0 [facility] Comment on above: Performed By: #### HARI OLSONRO #### [facility] [address] [place] [address] Dr. Hardeep Rivera IG # 0.03 10e3/ul Normal 0.00-0.03 [facility] Comment on above: Performed By: #### E RUR, UMICRO #### [facility] [address] [place] [address] Dr. Hardeep Rivera IG % 0.4 % Normal 0.0-0.5 [facility] Comment on above: Performed By: #### E KATHRIN, UMICRO #### [facility] [address] [place] [address] Dr. Hardeep Rivera LYMPH # 0.9 103/ul Critically low 1.2-3.8 [facility] Comment on above: Performed By: #### E KATHRIN, UMICRO #### [facility] [address] [place] [address] Dr. Hardeep Rivera Lymphocytes/100 WBC (Bld) 11.3 % Critically low 20.5-60.0 [facility] Comment on above: Performed By: #### Deedee PINON UMICRO #### [facility] [address] [place] [address] Dr. Hardeep Rivera MANUAL DIFF REQ NO Normal [facility] Comment on above: Performed By: #### Deedee PINON UMICRO #### [facility] [address] [place] [address] Dr. Hardeep Rivera MCH (RBC) [Entitic mass] 28.4 pg Normal 26.7-34.0 [facility] Comment on above: Performed By: #### Deedee PINON UMICRO #### [facility] [address] [place] [address] Dr. Hardeep Rivera MCHC (RBC) [Mass/Vol] 33.6 g/dL Normal 29.9-35.2 [facility] Comment on above: Performed By: #### E KATHRIN, UMICRO #### [facility] [address] [place] [address] Dr. Hardeep Rivera MCV (RBC) [Entitic vol] 84.5 fL Normal 81.0-99.0 [facility] Comment on above: Performed By: #### Deedee PINON, UMICRO #### [facility] [address] [place] [address] Dr. Hardeep Rivera MONO # 1.0 103/ul Critically high 0.3-0.8 [facility] Comment on above: Performed By: #### RANDALL OLSON #### [facility] [address] [place] [address] Dr. Hardeep Rivera Monocytes/100 WBC (Bld) 12.5 % Critically high 1.7-12.0 [facility] Comment on above: Performed By: #### RANDALL OLSON #### [facility] [address] [place] [address] Dr. Hardeep Rivera NEUT # 5.9 103/ul Normal 1.4-6.5 [facility] Comment on above: Performed By: #### RANDALL OLSON #### [facility] [address] [place] [address] Dr. Hardeep Rivera Neutrophils/100 WBC (Bld) 72.7 % Normal 43.0-75.0 [facility] Comment on above: Performed By: #### RANDALL OLSON #### [facility] [address] [place] [address] Dr. Hardeep Rivera Platelet mean volume (Bld) [Entitic vol] 8.6 fL Critically low 9.5-13.5 [facility] Comment on above: Performed By: #### RANDALL OLSON #### [facility] [address] [place] [address] Dr. Hardeep Rivera PLT 226 103/ul Normal 150-450 [facility] Comment on above: Performed By: #### RANDALL OLSON #### [facility] [address] [place] [address] Dr. Hardeep Rivera RBC 4.76 106/ul Normal 4.20-5.40 [facility] Comment on above: Performed By: #### RANDALL OLSON #### [facility] [address] [place] [address] Dr. Hardeep Rivera WBC 8.2 103/ul Normal 4.0-11.0 [facility] Comment on above: Performed By: #### RANDALL OLSON #### [facility] [address] [place] [address] Dr. Hardeep Rivera FREE THYROXINE INDEX T7on FTI 3.40 Normal 1.30-4.50 [facility] Comment on above: Performed By: #### AKSHAT OLSONICRO #### [facility] [address] [place] [address] Dr. Hardeep Rivera T3U 34.0 % Normal 30.0-39.0 [facility] Comment on above: Performed By: #### Deedee PINON UMICRO #### [facility] [address] [place] [address] Dr. Hardeep Rivera T4 [Mass/Vol] 10.00 ug/dL Normal 4.80-13.90 [facility] Comment on above: Performed By: #### Deedee PINON UMICRO #### [facility] [address] [place] [address] Dr. Hardeep Rivera PROF 14(COMP METB)on 023 Albumin [Mass/Vol] 3.8 g/dL Normal 3.4-5.0 [facility] Comment on above: Performed By: #### Deedee PINON UMICRO #### [facility] [address] [place] [address] Dr. Hardeep Rivera Albumin/Globulin [Mass ratio] 1.1 {ratio} Normal [facility] Comment on above: Performed By: #### Deedee PINON UMICRO #### [facility] [address] [place] [address] Dr. Hardeep Rivera ALP [Catalytic activity/Vol] 192 U/L Critically high 46-116 [facility] Comment on above: Performed By: #### Deedee PINON UMICRO #### [facility] [address] [place] [address] Dr. Hardeep Rivera ALT [Catalytic activity/Vol] 22 U/L Normal 14-59 [facility] Comment on above: Performed By: #### Deedee PINON UMICRO #### [facility] [address] [place] [address] Dr. Hardeep Rivera Anion gap [Moles/Vol] 11.4 mmol/L Normal [facility] Comment on above: Performed By: #### HARI OLSONRO #### [facility] [address] [place] [address] Dr. Hardeep Rivera AST [Catalytic activity/Vol] 22 U/L Normal 15-37 [facility] Comment on above: Performed By: #### HARI OLSONRO #### [facility] [address] [place] [address] Dr. Hardeep Rivera Bilirubin [Mass/Vol] 0.5 mg/dL Normal 0.2-1.0 [facility] Comment on above: Performed By: #### HARI OLSONRO #### [facility] [address] [place] [address] Dr. Hardeep Rivera Calcium [Mass/Vol] 9.1 mg/dL Normal 8.5-10.1 [facility] Comment on above: Performed By: #### HARI OLSONRO #### [facility] [address] [place] [address] Dr. Hardeep Rivera Chloride [Moles/Vol] 93 mmol/L Critically low 98-107 [facility] Comment on above: Performed By: #### HARI OLSONRO #### [facility] [address] [place] [address] Dr. Hardeep Rivera CO2 [Moles/Vol] 30.8 mmol/L Normal 21.0-32.0 [facility] Comment on above: Performed By: #### HARI OLSONRO #### [facility] [address] [place] [address] Dr. Hardeep Rivera Creatinine [Mass/Vol] 1.49 mg/dL Critically high 0.55-1.02 [facility] Comment on above: Performed By: #### HARI OLSONRO #### [facility] [address] [place] [address] Dr. Hardeep Rivera EGFR-AF WELSH 41 mL/min/1.73m2 Critically low >=60 [facility] Comment on above: Performed By: #### HARI OLSONRO #### [facility] [address] [address] [address] Hardeep Rivera EGFR-NON AF WELSH 34 mL/min/1.73m2 Critically low >=60 [facility] Comment on above: Performed By: #### Deedee PINON UMICRO #### [facility] [address] [address] [address] Hardeep Rivera Globulin (S) [Mass/Vol] 3.4 g/dL Normal [facility] Comment on above: Performed By: #### Deedee PINON, UMICRO #### [facility] [address] [address] [address] Hardeep Rivera Glucose [Mass/Vol] 116 mg/dL Critically high 74-106 T [facility] Comment on above: Performed By: #### Deedee PINON, UMICRO #### [facility] [address] [address] [address] Hardeep Rivera Potassium [Moles/Vol] 4.2 mmol/L Normal 3.5-5.1 [facility] Comment on above: Performed By: #### Deedee PINON, UMICRO #### [facility] [address] [address] [address] Hardeep Rivera Protein [Mass/Vol] 7.2 g/dL Normal 6.4-8.2 [facility] Comment on above: Performed By: #### Deedee PINON, UMICRO #### [facility] [address] [address] [address] Hardeep Rivera Sodium [Moles/Vol] 131 mmol/L Critically low 136-[address] [facility] Comment on above: Performed By: #### Deedee PINON, UMICRO #### [facility] [address] [address] [address] Hardeep Rivera Urea nitrogen [Mass/Vol] 38.0 mg/dL Critically high 7.0-18.0 [facility] Comment on above: Performed By: #### Deedee PINON, UMICRO #### [facility] [address] [address] [address] Hardeep Rivera Urea nitrogen/Creatinine [Mass ratio] 25.5 mg/mg Normal [facility] Comment on above: Performed By: #### HARI OLSONRO #### [facility] [address] [address] [address] Hardeep Rivera TSHon 12-11-2022 TSH 6.407 uIU/mL Critically high 0.358-3.740 [facility] Comment on above: Performed By: #### E HARI PINONRO #### [facility] [address] [address] [address] Hardeep Rivera Covid-19 PCR ([facility])on 11-01 SARS-CoV-2 (COVID-19) RNA ULICES+probe Ql (Unsp spec) Not detected Normal NOT DETECTED [facility] Comment on above: Result Comment: This test is not yet approved or cleared by the [place] FDA. When there are no FDA-approved or cleared tests available, and other criteria are met, FDA can make tests available under an emergency access mechanism called an Emergency Use Authorization (EUA). The EUA for this test is supported by the [employer] of Health and Human Service's (HHS's) declaration [...] By: #### C VDTB #### [facility] [address] [place], [place] [address] Dr. Hardeep Rivera INFLUENZA A AND B AGon 11-14 INFLUANEGH SEE BELOW Normal [facility] Comment on above: Result Comment: Nega tive for Flu A protein angiten. Infection due to Flu A cannot be ruled out. Flu A angiten in the sample may be below the detection limit of the test. Performed By: #### E HARI PINONRO #### [facility] [address] [address] [address] Hardeep Rivera INFLUBNEGH SEE BELOW Normal [facility] Comment on above: Result Comment: Nega tive for Flu B protein antigen. Infection due to Flu B cannot be ruled out. Flu B antigen in the sample may be below the detection limit of the test. Performed By: #### E RUR, UMICRO #### [facility] [address] [address] [address] Hardeep Rivera INFLUENZA A AG Negative Normal NEGATIVE SEE COMMENT [facility] Comment on above: Performed By: #### E RUR, UMICRO #### [facility] [address] [place] [address] Dr. Hardeep Rivera INFLUENZA B AG Negative Normal NEGATIVE SEE COMMENT [facility] Comment on above: Performed By: #### E RUR, UMICRO #### [facility] [address] [place] [address] Dr. Hardeep Rivera INTERNAL CONTROLS Within Normal Limits Normal Wi thin Normal Limits [facility] Comment on above: Performed By: #### E RUR, UMICRO #### [facility] [address] [place] [address] Dr. Hardeep Rivera Covid-19 PCR ([facility])on SARS-CoV-2 (COVID-19) RNA ULICES+probe Ql (Unsp spec) Not detected Normal NOT DETECTED [facility] Comment on above: Result Comment: This test is not yet approved or cleared by the [place] FDA. When there are no FDA-approved or cleared tests available, and other criteria are met, FDA can make tests available under an emergency access mechanism called an Emergency Use Authorization (EUA). The EUA for this test is supported by the [place] of Health and Human Service's (HHS's) declaration [...] By: #### C VDTB #### [facility] [address] [place] [address] Dr. Hardeep Rivera INFLUENZA A AND B AGon 10-03 [facility] SEE BELOW Normal [facility] Comment on above: Result Comment: Nega tive for Flu A protein angiten. Infection due to Flu A cannot be ruled out. Flu A angiten in the sample may be below the detection limit of the test. Performed By: #### HARI OLSONRO #### [facility] [address] [place] [address] Dr. [facility] Normal [facility] Comment on above: Result Comment: Nega tive for Flu B protein antigen. Infection due to Flu B cannot be ruled out. Flu B antigen in the sample may be below the detection limit of the test. Performed By: #### Deedee PINON UMICRO #### [facility] [address] [place] [address] Dr. Hardeep Rivera INFLUENZA A AG Negative Normal NEGATIVE SEE COMMENT [facility] Comment on above: Performed By: #### AKSHAT OLSONICRO #### [facility] [address] [place] [address] Dr. Hardeep Rivera INFLUENZA B AG Negative Normal NEGATIVE SEE COMMENT [facility] Comment on above: Performed By: #### AKSHAT OLSONICRO #### [facility] [address] [place] [address] Dr. Hardeep Rivera INTERNAL CONTROLS Within Normal Limits Normal Wi thin Normal Limits [facility] Comment on above: Performed By: #### Deedee PINON UMICRO #### [facility] [address] [place] [address] Dr. Hardeep Rivera AMYLASEon 08-04-2022 Amylase [Catalytic activity/Vol] 155 U/L Critically high 25-115 [facility] Comment on above: Performed By: #### C MP, LIPA, BRITTNEY ####[facility] [address] [id number]. Preethiarabella Rivera CBC AUTO DIFFon 08-04-2022 BASO # 0.0 103/ul Normal 0.0-0.1 [facility] Comment on above: Performed By: #### C BC ####[facility] [address] [place], [place] [address]Dr. Hardeep Rivera Basophils/100 WBC (Bld) 0.3 % Normal 0.2-2.0 [facility] Comment on above: Performed By: #### C BC ####[facility] [address] [place], [place] [address]Dr. Hardeep Rivera EO # 0.1 103/ul Normal 0.0-0.7 [facility] Comment on above: Performed By: #### C BC ####[facility] N[address] [place], [place] [address]Dr. Hardeep Rivera Eosinophils/100 WBC (Bld) 1.2 % Normal 0.9-7.0 [facility] Comment on above: Performed By: #### C BC ####[facility] Q[address] [place], [place] [address]Dr. Hardeep Rivera Erythrocyte distribution width (RBC) [Ratio] 12.2 % Normal 11.0-15.0 [facility] Comment on above: Performed By: #### C BC ####[facility] E[address]eg[address] [place], [place] [address]Dr. Hardeep Rivera Hematocrit (Bld) [Volume fraction] 38.3 % Normal 36.0-48.0 [facility] Comment on above: Performed By: #### C BC ####[facility] [address] [place], [place] [address]Dr. Hardeep Rivera Hemoglobin (Bld) [Mass/Vol] 12.9 g/dL Normal 12.0-16.0 [facility] Comment on above: Performed By: #### C BC ####[facility] [address] [place], [place] [address]Dr. Hardeep Rivera IG # 0.02 10e3/ul Normal 0.00-0.03 [facility] Comment on above: Performed By: #### C BC ####[facility] [address] [id number]. Hardeep Rivera IG % 0.3 % Normal 0.0-0.5 [facility] Comment on above: Performed By: #### C BC ####[facility] [address] [place] [address]Dr. Hardeep Rivera LYMPH # 1.1 103/ul Critically low 1.2-3.8 [facility] Comment on above: Performed By: #### C BC ####[facility] [address] [address]Dr. Hardeep Rivera Lymphocytes/100 WBC (Bld) 16.6 % Critically low 20.5-60.0 [facility] Comment on above: Performed By: #### C BC ####[facility] [address] [place] [address]Dr. Hardeep Rivera MANUAL DIFF REQ NO Normal [facility] Comment on above: Performed By: #### C BC ####[facility] [address] [place], [place] [address]Dr. Hardeep Rivera MCH (RBC) [Entitic mass] 29.7 pg Normal 26.7-34.0 [facility] Comment on above: Performed By: #### C BC ####[facility] [address] [address]Dr. Hardeep Rivera MCHC (RBC) [Mass/Vol] 33.7 g/dL Normal 29.9-35.2 [facility] Comment on above: Performed By: #### C BC ####[facility] [address] [place], [place] [address]Dr. Hardeep Rivera MCV (RBC) [Entitic vol] 88.2 fL Normal 81.0-99.0 [facility] Comment on above: Performed By: #### C BC ####[facility] [address] [place], [place] [address]Dr. Hardeep Rivera MONO # 0.7 103/ul Normal 0.3-0.8 [facility] Comment on above: Performed By: #### C BC ####[facility] [address] [place] [id number]. Hardeep Rivera Monocytes/100 WBC (Bld) 11.1 % Normal 1.7-12.0 [facility] Comment on above: Performed By: #### C BC ####[facility] [address] [place] [id number]. Hardeep Rivera NEUT # 4.6 103/ul Normal 1.4-6.5 [facility] Comment on above: Performed By: #### C BC ####[facility] [address] [place] [address]Dr. Hardeep Rivera Neutrophils/100 WBC (Bld) 70.5 % Normal 43.0-75.0 [facility] Comment on above: Performed By: #### C BC ####[facility] [address] [place] [address]Dr. Hardeep Rivera Platelet mean volume (Bld) [Entitic vol] 9.4 fL Critically low 9.5-13.5 [facility] Comment on above: Performed By: #### C BC ####[facility] [address] [place] [address]Dr. Hardeep Rivera PLT 203 103/ul Normal 150-450 [facility] Comment on above: Performed By: #### C BC ####[facility] [address] [place] [address]Dr. Hardeep Rivera RBC 4.34 106/ul Normal 4.20-5.40 [facility] Comment on above: Performed By: #### C BC ####[facility] X[address] [place], [place] [address]Dr. Hardeep Rivera WBC 6.5 103/ul Normal 4.0-11.0 [facility] Comment on above: Performed By: #### C BC ####[facility] [address] [place], [place] [address]Dr. Hardeep Rivera CT ABD/PELVIS WO CONon 08-04 [...] with prior examination. Electronically authenticated by: ALEXSANDER ALONSOANA MARÍA Date: 2022-08-04 20:12 Normal [facility] Covid-19 PCR (CVDTB)on SARS-CoV-2 (COVID-19) RNA ULICES+probe Ql (Unsp spec) Not detected Normal NOT DETECTED [facility] Comment on above: Result Comment: When [...] for this test is supported by the [place] of Health and Human Service's declaration that [...] longer be used). Performed By: #### [facility] ####[facility] [address] [place] [address]Dr. Hardeep Rivera ER URINE PROFILEon 2 Bilirubin Ql (U) Negative Normal NEGATIVE [facility] Comment on above: Performed By: #### E RUR #### [facility] [address] [address] [address] Hardeep Rivera Clarity (U) CLEAR Normal CLEAR [facility] Comment on above: Performed By: #### E RUR #### [facility] [address] [place] [address] Dr. Hardeep Rivera Color (U) LT. YELLOW Normal YELLOW [facility] Comment on above: Performed By: #### E RUR #### [facility] [address] [place] [address] Dr. Hardeep FRANCIS A micrscopic examina tion will be performed if indicated. Normal [facility] Comment on above: Performed By: #### E RUR #### [facility] [address] [place] [address] Dr. Hardeep Rivera Glucose Ql (U) Negative Normal NEGATIVE [facility] Comment on above: Performed By: #### E RUR #### [facility] [address] [place] [address] Dr. Hardeep Rivera Hemoglobin Ql (U) Negative Normal NEGATIVE [facility] Comment on above: Performed By: #### E RUR #### [facility] [address] [place] [address] Dr. Hardeep Rivera Ketones Ql (U) Negative Normal NEGATIVE [facility] Comment on above: Performed By: #### E RUR #### [facility] [address] [place] [address] Dr. Hardeep Rivera LEUKOCYTES Negative Normal NEGATIVE [facility] Comment on above: Performed By: #### E RUR #### [facility] [address] [place] [address] Dr. Hardeep Rivera Nitrite Ql (U) Negative Normal NEGATIVE [facility] Comment on above: Performed By: #### E RUR #### [facility] [address] [place] [address] Dr. Hardeep Rivera pH (U) 7.0 [pH] Normal 5-9 [facility] Comment on above: Performed By: #### E RUR #### [facility] [address] [place] [address] Dr. Hardeep Rivera SPEC GRAVITY <=1.005 Abnormal 1.005-<=1.0 25 [facility] Comment on above: Performed By: #### E RUR #### [facility] [address] [place] [address] Dr. Hardeep Rivera UA PROTEIN Negative Normal NEGATIVE/ TRACE [facility] Comment on above: Performed By: #### E RUR #### [facility] [address] [place] [address] Dr. Hardeep Rivera UR MICRO IND NOT INDICATED Normal [facility] Comment on above: Performed By: #### E RUR #### [facility] [address] [address] [address] Hardeep Rivera Urobilinogen Qn (U) 0.2 {Kevon'U}/dL Normal 0.2 - 1. 0 [facility] Comment on above: Performed By: #### E RUR #### [facility] [address] [address] [address] Hardeep Rivera LIPASEon 08-04-2022 Lipase [Catalytic activity/Vol] 1486.0 U/L Critically high 73.0-393.0 [facility] Comment on above: Performed By: #### C MP LIPA, BRITTNEY ####[facility] [address] [place] [address]DrLaura Rivera PROF 14(COMP METB)on 022 Albumin [Mass/Vol] 3.6 g/dL Normal 3.4-5.0 [facility] Comment on above: Performed By: #### C MP, LIPA, BRITTNEY ####[facility] [address] [place] [address]DrLaura Rivera Albumin/Globulin [Mass ratio] 1.3 {ratio} Normal [facility] Comment on above: Performed By: #### C MP, LIPA, BRITTNEY ####[facility] [address] [place] [address]DrLaura Rivera ALP [Catalytic activity/Vol] 171 U/L Critically high 46-116 [facility] Comment on above: Performed By: #### C MP, LIPA, BRITTNEY ####[facility] [address] [place] [address]Dr. Hardeep Rivera ALT [Catalytic activity/Vol] 35 U/L Normal 14-59 [facility] Comment on above: Performed By: #### C MP, LIPA, BRITTNEY ####[facility] [address] [place] [address]Dr. Hardeep Rivera Anion gap [Moles/Vol] 11.4 mmol/L Normal [facility] Comment on above: Performed By: #### C ARGENIS LIPA, BRITTNEY ####[facility] [address] [place] [address]Dr. Hardeep Rivera AST [Catalytic activity/Vol] 28 U/L Normal 15-37 [facility] Comment on above: Performed By: #### C ARGENIS LIPA, BRITTNEY ####[facility] [address] [place] [address]Dr. Hardeep Rivera Bilirubin [Mass/Vol] 0.7 mg/dL Normal 0.2-1.0 [facility] Comment on above: Performed By: #### C ARGENIS LIPA, BRITTNEY ####[facility] [address] [place], [place] [address]Dr. Hardeep Rivera Calcium [Mass/Vol] 8.4 mg/dL Critically low 8.5-10.[address] [facility] Comment on above: Performed By: #### C ARGENIS LIPA, BRITTNEY ####[facility] [address] [place], [place] [address]Dr. Hardeep Rivera Chloride [Moles/Vol] 100 mmol/L Normal 98-107 [facility] Comment on above: Performed By: #### C ARGENIS LIPA, BRITTNEY ####[facility] Cp[address]aje[address]jj[address] [place], [place] [address]Dr. Hardeep Rivera CO2 [Moles/Vol] 25.6 mmol/L Normal 21.0-32.0 [facility] Comment on above: Performed By: #### C ARGENIS LIPA, BRITTNEY ####[facility] [address] [place], [place] [address]Dr. Hardeep Rivera Creatinine [Mass/Vol] 1.33 mg/dL Critically high 0.55-1.02 [facility] Comment on above: Performed By: #### C MP LIPA, BRITTNEY ####[facility] [address] [place], [place] [address]Dr. Hardeep Rivera EGFR-AF WELSH 47 mL/min/1.73m2 Critically low >=60 [facility] Comment on above: Performed By: #### C MP LIPA, BRITTNEY ####[facility] [address] [place] [address]Dr. Hardeep Rivera EGFR-NON AF WELSH 39 mL/min/1.73m2 Critically low >=60 [facility] Comment on above: Performed By: #### C DERRELL MOREA, BRITTNEY ####[facility] [address] [place] [address]Dr. Hardeep Rivera Globulin (S) [Mass/Vol] 2.7 g/dL Normal [facility] Comment on above: Performed By: #### C ARGENIS LIPA, BRITTNEY ####[facility] [address] [place] [address]Dr. Hardeep Rivera Glucose [Mass/Vol] 108 mg/dL Critically high 74-106 [facility] Comment on above: Performed By: #### C ARGENIS LIPA, BRITTNEY ####[facility] [address] [place] [address]Dr. Hardeep Rivera Potassium [Moles/Vol] 4.0 mmol/L Normal 3.5-5.1 [facility] Comment on above: Performed By: #### C ARGENIS LIPA, BRITTNEY ####[facility] [address] [place] [address]Dr. Hardeep Rivera Protein [Mass/Vol] 6.3 g/dL Critically low 6.4-8.[address] [facility] Comment on above: Performed By: #### C ARGENIS LIPA, BRITTNEY ####[facility] [address] [place] [address]Dr. Hardeep Rivera Sodium [Moles/Vol] 133 mmol/L Critically low 136-[address] [facility] Comment on above: Performed By: #### C MP LIPA, BRITTNEY ####[facility] [address] [place] [address]Dr. Hardeep Rivera Urea nitrogen [Mass/Vol] 23.0 mg/dL Critically high 7.0-18.0 [facility] Comment on above: Performed By: #### C MP LIPA, BRITTNEY ####[facility] [address] [place] [address]Dr. Hardeep Rivera Urea nitrogen/Creatinine [Mass ratio] 17.3 mg/mg Normal [facility] Comment on above: Performed By: #### C MP, LIPA, BRITTNEY ####[facility] [address] [place] [address]Dr. Hardeep Rivera BOX TEST SENT OUTon 08-02-20 SENT TO REF LAB 08/02/2022 Normal [facility] Comment on above: Performed By: #### Deedee GUADALUPER #### [facility] [address] [place] [address] Dr. Hardeep Rivera CBC AUTO DIFFon 08-02-2022 BASO # 0.0 103/ul Normal 0.0-0.1 [facility] Comment on above: Performed By: #### HARI OLSONRO #### [facility] [address] [place] [address] Dr. Hardeep Rivera Basophils/100 WBC (Bld) 0.3 % Normal 0.2-2.0 [facility] Comment on above: Performed By: #### RANDALL OLSON #### [facility] [address] [place] [address] Dr. Hardeep Rivera EO # 0.1 103/ul Normal 0.0-0.7 [facility] Comment on above: Performed By: #### HARI OLSONRO #### [facility] [address] [place] [address] Dr. Hardeep Rivera Eosinophils/100 WBC (Bld) 1.4 % Normal 0.9-7.0 [facility] Comment on above: Performed By: #### HARI OLSONRO #### [facility] [address] [place] [address] Dr. Hardeep Rivera Erythrocyte distribution width (RBC) [Ratio] 12.2 % Normal 11.0-15.0 [facility] Comment on above: Performed By: #### HARI OLSONRO #### [facility] [address] [place] [address] Dr. Hardeep Rivera Hematocrit (Bld) [Volume fraction] 41.2 % Normal 36.0-48.0 [facility] Comment on above: Performed By: #### Deedee PINON UMICRO #### [facility] [address] [place] [address] Dr. Hardeep Rivera Hemoglobin (Bld) [Mass/Vol] 13.6 g/dL Normal 12.0-16.0 [facility] Comment on above: Performed By: #### Deedee PINON, UMICRO #### [facility] [address] [place] [address] Dr. Hardeep Rivera IG # 0.02 10e3/ul Normal 0.00-0.03 [facility] Comment on above: Performed By: #### Deedee PINON UMICRO #### [facility] [address] [place] [address] Dr. Hardeep Rivera IG % 0.3 % Normal 0.0-0.5 [facility] Comment on above: Performed By: #### Deedee PINON UMICRO #### [facility] [address] [place] [address] Dr. Hardeep Rivera LYMPH # 0.6 103/ul Critically low 1.2-3.8 [facility] Comment on above: Performed By: #### Deedee PINON UMICRO #### [facility] [address] [place] [address] Dr. Hardeep Rivera Lymphocytes/100 WBC (Bld) 8.9 % Critically low 20.5-60.0 [facility] Comment on above: Performed By: #### Deedee PINON UMICRO #### [facility] [address] [place] [address] Dr. Hardeep Rivera MANUAL DIFF REQ NO Normal [facility] Comment on above: Performed By: #### Deedee PINON UMICRO #### [facility] [address] [place] [address] Dr. Hardeep Rivera MCH (RBC) [Entitic mass] 29.6 pg Normal 26.7-34.0 [facility] Comment on above: Performed By: #### Deedee PINON, UMICRO #### [facility] [address] [place] [address] Dr. Hardeep Rivera MCHC (RBC) [Mass/Vol] 33.0 g/dL Normal 29.9-35.2 [facility] Comment on above: Performed By: #### RANDALL OLSON #### [facility] [address] [place] [address] Dr. Hardeep Rivera MCV (RBC) [Entitic vol] 89.8 fL Normal 81.0-99.0 [facility] Comment on above: Performed By: #### HARI OLSONRO #### [facility] [address] [place] [address] Dr. Hardeep Rivera MONO # 0.7 103/ul Normal 0.3-0.8 [facility] Comment on above: Performed By: #### HARI OLSONRO #### [facility] [address] [place] [address] Dr. Hardeep Rivera Monocytes/100 WBC (Bld) 11.6 % Normal 1.7-12.0 [facility] Comment on above: Performed By: #### HARI OLSONRO #### [facility] [address] [place] [address] Dr. Hardeep Rivera NEUT # 5.0 103/ul Normal 1.4-6.5 [facility] Comment on above: Performed By: #### HARI OLSONRO #### [facility] [address] [place] [address] Dr. Hardeep Rivera Neutrophils/100 WBC (Bld) 77.5 % Critically high 43.0-75.0 [facility] Comment on above: Performed By: #### HARI OLSONRO #### [facility] [address] [place] [address] Dr. Hardeep Rivera Platelet mean volume (Bld) [Entitic vol] 9.4 fL Critically low 9.5-13.5 [facility] Comment on above: Performed By: #### HARI OLSONRO #### [facility] [address] [place] [address] Dr. Hardeep Rivera PLT 200 103/ul Normal 150-450 [facility] Comment on above: Performed By: #### HARI OLSONRO #### [facility] [address] [place] [address] Dr. Hardeep Rivera RBC 4.59 106/ul Normal 4.20-5.40 [facility] Comment on above: Performed By: #### Deedee PINON UMICRO #### [facility] [address] [place] [address] Dr. Hardeep Rivera WBC 6.4 103/ul Normal 4.0-11.0 [facility] Comment on above: Performed By: #### Deedee PINON UMICRO #### [facility] [address] [place] [address] Dr. Hardeep Rivera PROF CHEM 8 (BAS METB)on Anion gap [Moles/Vol] 12.2 mmol/L Normal [facility] Comment on above: Performed By: #### Deedee PINON UMICRO #### [facility] [address] [place] [address] Dr. Hardeep Rivera Calcium [Mass/Vol] 8.6 mg/dL Normal 8.5-10.1 [facility] Comment on above: Performed By: #### Deedee PINON UMICRO #### [facility] [address] [place] [address] Dr. Hardeep Rivera Chloride [Moles/Vol] 98 mmol/L Normal 98-107 [facility] Comment on above: Performed By: #### Deedee PINON UMICRO #### [facility] [address] [place] [address] Dr. Hardeep Rivera CO2 [Moles/Vol] 27.7 mmol/L Normal 21.0-32.0 [facility] Comment on above: Performed By: #### Deedee PINON UMICRO #### [facility] [address] [place] [address] Dr. Hardeep Rivera Creatinine [Mass/Vol] 1.42 mg/dL Critically high 0.55-1.02 [facility] Comment on above: Performed By: #### Deedee PINON UMICRO #### [facility] [address] [place] [address] Dr. Hardeep Rivera EGFR-AF WELSH 43 mL/min/1.73m2 Critically low >=60 [facility] Comment on above: Performed By: #### RANDALL OLSON #### [facility] [address] [place] [address] Dr. Hardeep Rivera EGFR-NON AF WELSH 36 mL/min/1.73m2 Critically low >=60 [facility] Comment on above: Performed By: #### RANDALL OLSON #### [facility] [address] [place] [address] Dr. Hardeep Rivera Glucose [Mass/Vol] 119 mg/dL Critically high 74-106 [facility] Comment on above: Performed By: #### RANDALL OLSON #### [facility] [address] [place] [address] Dr. Hardeep Rivera Potassium [Moles/Vol] 3.9 mmol/L Normal 3.5-5.1 [facility] Comment on above: Performed By: #### RANDALL OLSON #### [facility] [address] [place] [address] Dr. Hardeep Rivera Sodium [Moles/Vol] 134 mmol/L Critically low 136-145 [facility] Comment on above: Performed By: #### RANDALL OLSON #### [facility] [address] [place] [address] Dr. Hardeep Rivera Urea nitrogen [Mass/Vol] 21.0 mg/dL Critically high 7.0-18.0 [facility] Comment on above: Performed By: #### RANDALL OLSON #### [facility] [address] [place] [address] Dr. Hardeep Rivera Urea nitrogen/Creatinine [Mass ratio] 14.8 mg/mg [facility] Comment on above: Performed By: #### RANDALL OLSON #### [facility] [address] [place] [address] Dr. Hardeep Rivera BOX TEST SENT OUTon 07-03-20 22 SENT TO REF LAB 07/03/2022 [facility] Comment on above: Performed By: #### Deedee PINON UMBENNETTNIKIA #### [facility] [address] [address] [address] Hardeep Rivera CBC AUTO DIFFon 07-03-2022 BASO # 0.0 103/ul Normal 0.0-0.1 [facility] Comment on above: Performed By: #### C BC #### [facility] [address] [address] [address] Hardeep Rivera Basophils/100 WBC (Bld) 0.3 % Normal 0.2-2.0 [facility] Comment on above: Performed By: #### C BC #### [facility] [address] [address] [address] Hardeep Rivera EO # 0.1 103/ul Normal 0.0-0.7 [facility] Comment on above: Performed By: #### C BC #### [facility] [address] [place] [address] Dr. Hardeep Rivera Eosinophils/100 WBC (Bld) 0.9 % Normal 0.9-7.0 [facility] Comment on above: Performed By: #### C BC #### [facility] [address] [address] [address] Hardeep Rivera Erythrocyte distribution width (RBC) [Ratio] 12.2 % Normal 11.0-15.0 [facility] Comment on above: Performed By: #### C BC #### [facility] [address] [place] [address] Dr. Hardeep Rivera Hematocrit (Bld) [Volume fraction] 42.3 % Normal 36.0-48.0 [facility] Comment on above: Performed By: #### C BC #### [facility] [address] [address] [address] Hardeep Rivera Hemoglobin (Bld) [Mass/Vol] 14.0 g/dL Normal 12.0-16.0 [facility] Comment on above: Performed By: #### C BC #### [facility] [address] [address] [address] Hardeep Rivera IG # 0.04 10e3/ul Critically high 0.00-0.03 [facility] Comment on above: Performed By: #### C BC #### [facility] [address] [place] [address] Dr. Hardeep Rivera IG % 0.5 % Normal 0.0-0.5 [facility] Comment on above: Performed By: #### C BC #### [facility] [address] [place] [address] Dr. Hardeep Rivera LYMPH # 0.8 103/ul Critically low 1.2-3.8 [facility] Comment on above: Performed By: #### C BC #### [facility] [address] [place] [address] Dr. Hardeep Rivera Lymphocytes/100 WBC (Bld) 10.9 % Critically low 20.5-60.0 [facility] Comment on above: Performed By: #### C BC #### [facility] [address] [place] [address] Dr. Hardeep Rivera MANUAL DIFF REQ NO Normal [facility] Comment on above: Performed By: #### C BC #### [facility] [address] [place] [address] Dr. Hardeep Rivera MCH (RBC) [Entitic mass] 29.7 pg Normal 26.7-34.0 [facility] Comment on above: Performed By: #### C BC #### [facility] [address] [place] [address] Dr. Hardeep Rivera MCHC (RBC) [Mass/Vol] 33.1 g/dL Normal 29.9-35.2 [facility] Comment on above: Performed By: #### C BC #### [facility] [address] [place] [address] Dr. Hardeep Rivera MCV (RBC) [Entitic vol] 89.8 fL Normal 81.0-99.0 [facility] Comment on above: Performed By: #### C BC #### [facility] [address] [place] [address] Dr. Hardeep Rivera MONO # 0.9 103/ul Critically high 0.3-0.8 [facility] Comment on above: Performed By: #### C BC #### [facility] [address] [place] [address] Dr. Hardeep Rivera Monocytes/100 WBC (Bld) 11.1 % Normal 1.7-12.0 [facility] Comment on above: Performed By: #### C BC #### [facility] [address] [place] [address] Dr. Hardeep Rivera NEUT # 5.8 103/ul Normal 1.4-6.5 [facility] Comment on above: Performed By: #### C BC #### [facility] [address] [place] [address] Dr. Hardeep Rivera Neutrophils/100 WBC (Bld) 76.3 % Critically high 43.0-75.0 [facility] Comment on above: Performed By: #### C BC #### [facility] [address] [place] [address] Dr. Hardeep Rivera Platelet mean volume (Bld) [Entitic vol] 9.5 fL Normal 9.5-13.5 [facility] Comment on above: Performed By: #### C BC #### [facility] [address] [place] [address] Dr. Hardeep Rivera PLT 191 103/ul Normal 150-450 [facility] Comment on above: Performed By: #### C BC #### [facility] [address] [place] [address] Dr. Hardeep Rivera RBC 4.71 106/ul Normal 4.20-5.40 [facility] Comment on above: Performed By: #### C BC #### [facility] [address] [place] [address] Dr. Hardeep Rivera WBC 7.6 103/ul Normal 4.0-11.0 [facility] Comment on above: Performed By: #### C BC #### [facility] [address] [place] [address] Dr. Hardeep Rivera PROF CHEM 8 (BAS METB)on Anion gap [Moles/Vol] 12.9 mmol/L Normal [facility] Comment on above: Performed By: #### E RUR, UMICRO #### [facility] [address] [address] [address] Hardeep Rivera Calcium [Mass/Vol] 9.0 mg/dL Normal 8.5-10.1 [facility] Comment on above: Performed By: #### E RUR, UMICRO #### [facility] [address] [place] [address] Dr. Hardeep Rivera Chloride [Moles/Vol] 98 mmol/L Normal 98-107 [facility] Comment on above: Performed By: #### E RUR, UMICRO #### [facility] [address] [place] [address] Dr. Hardeep Rivera CO2 [Moles/Vol] 28.1 mmol/L Normal 21.0-32.0 [facility] Comment on above: Performed By: #### E COLLINSR, UMICRO #### [facility] [address] [place] [address] Dr. Hardeep Rivera Creatinine [Mass/Vol] 1.64 mg/dL Critically high 0.55-1.02 [facility] Comment on above: Performed By: #### E KATHRIN, UMICRO #### [facility] [address] [place] [address] Dr. Hardeep Rivera EGFR-AF WELSH 37 mL/min/1.73m2 Critically low >=60 [facility] Comment on above: Performed By: #### E COLLINSR, UMICRO #### [facility] [address] [place] [address] Dr. Hardeep Rivera EGFR-NON AF WELSH 30 mL/min/1.73m2 Critically low >=60 [facility] Comment on above: Performed By: #### E RUR, UMICRO #### [facility] [address] [place] [address] Dr. Hardeep Rivera Glucose [Mass/Vol] 114 mg/dL Critically high 74-106 [facility] Comment on above: Performed By: #### E RUR, UMICRO #### [facility] [address] [place] [address] Dr. Hardeep Rivera Potassium [Moles/Vol] 4.0 mmol/L Normal 3.5-5.1 [facility] Comment on above: Performed By: #### RANDALL OLSON #### [facility] [address] [address] [address] Hardeep Rivera Sodium [Moles/Vol] 135 mmol/L Critically low 136-[address] [facility] Comment on above: Performed By: #### RANDALL OLSON #### [facility] [address] [address] [address] Hardeep Rivera Urea nitrogen [Mass/Vol] 24.0 mg/dL Critically high 7.0-18.0 [facility] Comment on above: Performed By: #### RANDALL OLSON #### [facility] [address] [place] [address] Dr. Hardeep Rivera Urea nitrogen/Creatinine [Mass ratio] 14.6 mg/mg Normal [facility] Comment on above: Performed By: #### RANDALL OLSON #### [facility] [address] [place] [address] Dr. Hardeep Rivera MG MAMM SCREEN 3D TRISHA CADon 05-28-2022 MG MAMM SCREEN 3D TRISHA CAD Patient: SYLVIA HERRERA Exam Date: 05/28/2022 : 1945 Gender:F Ordering : DR TAO ROONEY . Admission #: [id number] Family : Order #: [id number] CLICK HERE TO VIEW EXAM RADIOLOGY REPORT [...] Family Cancers None LOCATION: [facility] BREAST COMPOSITION: Heterogeneously dense,which may obscure [...] Ibrahim MD on 05/28/2022 at 10:20 Normal [facility] BOX TEST SENT OUTon 05-07-20 22 SENT TO REF LAB 05/07/2022 Normal [facility] Comment on above: Performed By: #### Deedee PINON UMICRO #### [facility] [address] [place] [address] Dr. Hardeep Rivera CBC AUTO DIFFon 05-07-2022 BASO # 0.0 103/ul Normal 0.0-0.1 [facility] Comment on above: Performed By: #### Deedee PINON UMICRO #### [facility] [address] [place] [address] Dr. Hardeep Rivera Basophils/100 WBC (Bld) 0.4 % Normal 0.2-2.0 [facility] Comment on above: Performed By: #### Deedee PINON UMICRO #### [facility] [address] [place] [address] Dr. Hardeep Rivera EO # 0.1 103/ul Normal 0.0-0.7 [facility] Comment on above: Performed By: #### Deedee PINON UMICRO #### [facility] [address] [place] [address] Dr. Hardeep Rivera Eosinophils/100 WBC (Bld) 1.0 % Normal 0.9-7.0 [facility] Comment on above: Performed By: #### Deedee PINON UMICRO #### [facility] [address] [place] [address] Dr. Hardeep Rivera Erythrocyte distribution width (RBC) [Ratio] 12.6 % Normal 11.0-15.0 [facility] Comment on above: Performed By: #### Deedee PINON UMICRO #### [facility] [address] [place] [address] Dr. Hardeep Rivera Hematocrit (Bld) [Volume fraction] 44.0 % Normal 36.0-48.0 [facility] Comment on above: Performed By: #### RANDALL OLSON #### [facility] [address] [place] [address] Dr. Hardeep Rivera Hemoglobin (Bld) [Mass/Vol] 14.0 g/dL Normal 12.0-16.0 [facility] Comment on above: Performed By: #### HARI OSLONRO #### [facility] [address] [place] [address] Dr. Hardeep Rivera IG # 0.02 10e3/ul Normal 0.00-0.03 [facility] Comment on above: Performed By: #### HARI OLSONRO #### [facility] [address] [place] [address] Dr. Hardeep Rivera IG % 0.3 % Normal 0.0-0.5 [facility] Comment on above: Performed By: #### HARI OLSONRO #### [facility] [address] [place] [address] Dr. Hardeep Rivera LYMPH # 0.6 103/ul Critically low 1.2-3.8 [facility] Comment on above: Performed By: #### RANDALL OLSON #### [facility] [address] [place] [address] Dr. Hardeep Rivera Lymphocytes/100 WBC (Bld) 8.2 % Critically low 20.5-60.0 [facility] Comment on above: Performed By: #### HARI OLSONRO #### [facility] [address] [place] [address] Dr. Hardeep Rivera MANUAL DIFF REQ NO Normal [facility] Comment on above: Performed By: #### HARI OLSONRO #### [facility] [address] [place] [address] Dr. Hardeep Rivera MCH (RBC) [Entitic mass] 29.4 pg Normal 26.7-34.0 [facility] Comment on above: Performed By: #### HARI OLSONRO #### [facility] [address] [place] [address] Dr. Hardeep Rivera MCHC (RBC) [Mass/Vol] 31.8 g/dL Normal 29.9-35.2 [facility] Comment on above: Performed By: #### Deedee PINON UMICRO #### [facility] [address] [place] [address] Dr. Hardeep Rivera MCV (RBC) [Entitic vol] 92.2 fL Normal 81.0-99.0 [facility] Comment on above: Performed By: #### E KATHRIN, UMICRO #### [facility] [address] [place] [address] Dr. Hardeep Rivera MONO # 0.8 103/ul Normal 0.3-0.8 [facility] Comment on above: Performed By: #### Deedee PINON, UMICRO #### [facility] [address] [place] [address] Dr. Hardeep Rivera Monocytes/100 WBC (Bld) 9.6 % Normal 1.7-12.0 [facility] Comment on above: Performed By: #### Deedee PINON UMICRO #### [facility] [address] [place] [address] Dr. Hardeep Rivera NEUT # 6.3 103/ul Normal 1.4-6.5 [facility] Comment on above: Performed By: #### Deedee PINON, UMICRO #### [facility] [address] [place] [address] Dr. Hardeep Rivera Neutrophils/100 WBC (Bld) 80.5 % Critically high 43.0-75.0 [facility] Comment on above: Performed By: #### E KATHRIN, UMICRO #### [facility] [address] [place] [address] Dr. Hardeep Rivera Platelet mean volume (Bld) [Entitic vol] 10.1 fL Normal 9.5-13.5 [facility] Comment on above: Performed By: #### Deedee IPNON, UMICRO #### [facility] [address] [place] [address] Dr. Hardeep Rivera PLT 188 103/ul Normal 150-450 [facility] Comment on above: Performed By: #### HARI OLSONRO #### [facility] [address] [place] [address] Dr. Hardeep Rivera RBC 4.77 106/ul Normal 4.20-5.40 [facility] Comment on above: Performed By: #### HARI OLSONRO #### [facility] [address] [place] [address] Dr. Hardeep Rivera WBC 7.8 103/ul Normal 4.0-11.0 [facility] Comment on above: Performed By: #### HARI OLSONRO #### [facility] [address] [place] [address] Dr. Hardeep Rivera PROF CHEM 8 (BAS METB)on Anion gap [Moles/Vol] 11.9 mmol/L Normal [facility] Comment on above: Performed By: #### HARI OLSONRO #### [facility] [address] [place] [address] Dr. Hardeep Rivera Calcium [Mass/Vol] 8.7 mg/dL Normal 8.5-10.1 [facility] Comment on above: Performed By: #### HARI OLSONRO #### [facility] [address] [place] [address] Dr. Hardeep Rivera Chloride [Moles/Vol] 99 mmol/L Normal 98-107 [facility] Comment on above: Performed By: #### HARI OLSONRO #### [facility] [address] [place] [address] Dr. Hardeep Rivera CO2 [Moles/Vol] 27.1 mmol/L Normal 21.0-32.0 [facility] Comment on above: Performed By: #### HARI OLSONRO #### [facility] [address] [place] [address] Dr. Hardeep Rivera Creatinine [Mass/Vol] 1.62 mg/dL Critically high 0.55-1.02 [facility] Comment on above: Performed By: #### HARI OLSONRO #### [facility] [address] [address] [address] Hardeep Rivera EGFR-AF WELSH 37 mL/min/1.73m2 Critically low >=60 [facility] Comment on above: Performed By: #### E KATHRIN, UMICRO #### [facility] [address] [address] [address] Hardeep Rivera EGFR-NON AF WELSH 31 mL/min/1.73m2 Critically low >=60 [facility] Comment on above: Performed By: #### E KATHRIN, UMICRO #### [facility] [address] [place] [address] Dr. Hardeep Rivera Glucose [Mass/Vol] 73 mg/dL Critically low 74-[address] [facility] Comment on above: Performed By: #### Deedee PINON UMICRO #### [facility] [address] [place] [address] Dr. Hardeep Rivera Potassium [Moles/Vol] 4.0 mmol/L Normal 3.5-5.1 [facility] Comment on above: Performed By: #### Deedee PINON UMICRO #### [facility] [address] [place] [address] Dr. Hardeep Rivera Sodium [Moles/Vol] 134 mmol/L Critically low 136-[address] [facility] Comment on above: Performed By: #### Deedee PINON UMICRO #### [facility] [address] [place] [address] Dr. Hardeep Rivera Urea nitrogen [Mass/Vol] 33.0 mg/dL Critically high 7.0-18.0 [facility] Comment on above: Performed By: #### Deedee PINON UMICRO #### [facility] [address] [place] [address] Dr. Hardeep Rivera Urea nitrogen/Creatinine [Mass ratio] 20.4 mg/mg Normal [facility] Comment on above: Performed By: #### Deedee PINON UMICRO #### [facility] [address] [place] [address] Dr. Hardeep Rivera BOX TEST SENT OUTon 04-24-20 SENT TO REF LAB 04/24/2022 Normal [facility] Comment on above: Performed By: #### RANDALL OLSON #### [facility] [address] [place] [address] Dr. Hardeep Rivera FK506 (TACROLIMUS) WHOLE BLO ODon 04-11-2022 Tacrolimus (FK506), Blood 7.3 ng/mL Normal 2.0-20.0 [facility] Comment on above: Result Comment: Trou gh (immediately following transplant) 15.0 . Trough (steady state, 2 weeks or more after transplant): 3.0 - 8.0 . Performed by LC-MS/MS technology. Performed By: #### RANDALL OLSON #### [facility] [address] [place] [address] Dr. Hardeep Rivera BOX TEST SENT OUTon 04-09-20 SENT TO REF LAB 04/09/2022 Normal [facility] Comment on above: Performed By: #### RANDALL OLSON #### [facility] [address] [place] [address] Dr. Hardeep Rivera CBC AUTO DIFFon 04-09-2022 BASO # 0.0 103/ul Normal 0.0-0.1 [facility] Comment on above: Performed By: #### RANDALL OLSON #### [facility] [address] [place] [address] Dr. Hardeep Rivera Basophils/100 WBC (Bld) 0.1 % Critically low 0.2-2.0 [facility] Comment on above: Performed By: #### RANDALL OLSON #### [facility] [address] [place] [address] Dr. Hardeep Rivera EO # 0.1 103/ul Normal 0.0-0.7 [facility] Comment on above: Performed By: #### RANDALL OLSON #### [facility] [address] [place] [address] Dr. Hardeep Rivera Eosinophils/100 WBC (Bld) 1.2 % Normal 0.9-7.0 [facility] Comment on above: Performed By: #### RANDALL OLSON #### [facility] Laboratory [address] [place] [address] Dr. Hardeep Rivera Erythrocyte distribution width (RBC) [Ratio] 12.6 % Normal 11.0-15.0 [facility] Comment on above: Performed By: #### Deedee PINON UMICRO #### [facility] Laboratory [address] [place] [address] Dr. Hardeep Rivera Hematocrit (Bld) [Volume fraction] 44.1 % Normal 36.0-48.0 [facility] Comment on above: Performed By: #### Deedee PINON UMICRO #### [facility] Laboratory [address] [place] [address] Dr. Hardeep Rivera Hemoglobin (Bld) [Mass/Vol] 14.1 g/dL Normal 12.0-16.0 [facility] Comment on above: Performed By: #### Deedee PINON UMICRO #### [facility] Laboratory [address] [place] [address] Dr. Hardeep Rivera IG # 0.02 10e3/ul Normal 0.00-0.03 [facility] Comment on above: Performed By: #### Deedee PINON UMICRO #### [facility] Laboratory [address] [place] [address] Dr. Hardeep Rivera IG % 0.3 % Normal 0.0-0.5 [facility] Comment on above: Performed By: #### Deedee PINON UMICRO #### [facility] Laboratory [address] [place] [address] Dr. Hardeep Rivera LYMPH # 0.7 103/ul Critically low 1.2-3.8 [facility] Comment on above: Performed By: #### Deedee PINON UMICRO #### [facility] Laboratory [address] [place] [address] Dr. Hardeep Rivera Lymphocytes/100 WBC (Bld) 10.8 % Critically low 20.5-60.0 [facility] Comment on above: Performed By: #### Deedee PINON UMICRO #### [facility] Laboratory [address] [place] [address] Dr. Hardeep Rivera MANUAL DIFF REQ NO Normal [facility] Comment on above: Performed By: #### Deedee PINON UMICRO #### [facility] Laboratory [address] [place] [address] Dr. Hardeep Rivera MCH (RBC) [Entitic mass] 29.3 pg Normal 26.7-34.0 [facility] Comment on above: Performed By: #### Deedee PINON UMICRO #### [facility] Laboratory [address] [place] [address] Dr. Hardeep Rivera MCHC (RBC) [Mass/Vol] 32.0 g/dL Normal 29.9-35.2 [facility] Comment on above: Performed By: #### Deedee PINON UMICRO #### [facility] Laboratory [address] [place] [address] Dr. Hardeep Rivera MCV (RBC) [Entitic vol] 91.7 fL Normal 81.0-99.0 [facility] Comment on above: Performed By: #### Deedee PINON UMICRO #### [facility] Laboratory [address] [place] [address] Dr. Hardeep Rivera MONO # 0.7 103/ul Normal 0.3-0.8 [facility] Comment on above: Performed By: #### Deedee PINON UMICRO #### [facility] Laboratory [address] [place] [address] Dr. Hardeep Rivera Monocytes/100 WBC (Bld) 10.8 % Normal 1.7-12.0 [facility] Comment on above: Performed By: #### Deedee PINON UMICRO #### [facility] Laboratory [address] [place] [address] Dr. Hardeep Rivera NEUT # 5.2 103/ul Normal 1.4-6.5 [facility] Comment on above: Performed By: #### Deedee PINON UMICRO #### [facility] Laboratory [address] [place] [address] Dr. Hardeep Rivera Neutrophils/100 WBC (Bld) 76.8 % Critically high 43.0-75.0 [facility] Comment on above: Performed By: #### HARI OLSONRO #### [facility] Laboratory [address] [place] [address] Dr. Hardeep Rivera Platelet mean volume (Bld) [Entitic vol] 9.8 fL Normal 9.5-13.5 [facility] Comment on above: Performed By: #### AKSHAT OLSONICRO #### [facility] Laboratory [address] [place] [address] Dr. Hardeep Rivera PLT 200 103/ul Normal 150-450 [facility] Comment on above: Performed By: #### Deedee PINON UMICRO #### [facility] Laboratory [address] [place] [address] Dr. Hardeep Rivera RBC 4.81 106/ul Normal 4.20-5.40 [facility] Comment on above: Performed By: #### HARI OLSONRO #### [facility] Laboratory [address] [place] [address] Dr. Hardeep Rivera WBC 6.7 103/ul Normal 4.0-11.0 [facility] Comment on above: Performed By: #### AKSHAT OLSONICRO #### [facility] Laboratory [address] [place] [address] Dr. Hardeep Rivera PROF CHEM 8 (BAS METB)on Anion gap [Moles/Vol] 9.1 mmol/L Normal [facility] Comment on above: Performed By: #### Deedee PINON UMICRO #### [facility] Laboratory [address] [place] [address] Dr. Hardeep Rivera Calcium [Mass/Vol] 8.3 mg/dL Critically low 8.5-10.1 [facility] Comment on above: Performed By: #### Deedee PINON UMICRO #### [facility] Laboratory [address] [place] [address] Dr. Hardeep Rivera Chloride [Moles/Vol] 100 mmol/L Normal 98-107 [facility] Comment on above: Performed By: #### Deedee PINON UMICRO #### [facility] Laboratory [address] [place] [address] Dr. Hardeep Rivera CO2 [Moles/Vol] 28.1 mmol/L Normal 21.0-32.0 [facility] Comment on above: Performed By: #### RANDALL OLSON #### [facility] Laboratory [address] [place] [address] Dr. Hardeep Rivera Creatinine [Mass/Vol] 1.54 mg/dL Critically high 0.55-1.02 [facility] Comment on above: Performed By: #### HARI OLSONRO #### [facility] Laboratory [address] [place] [address] Dr. Hardeep Rivera EGFR-AF WELSH 40 mL/min/1.73m2 Critically low >=60 [facility] Comment on above: Performed By: #### HARI OLSONRO #### [facility] Laboratory [address] [place] [address] Dr. Hardeep Rivera EGFR-NON AF WELSH 33 mL/min/1.73m2 Critically low >=60 [facility] Comment on above: Performed By: #### HARI OLSONRO #### [facility] Laboratory [address] [place] [address] Dr. Hardeep Rivera Glucose [Mass/Vol] 122 mg/dL Critically high 74-106 [facility] Comment on above: Performed By: #### HARI OLSONRO #### [facility] Laboratory [address] [place] [address] Dr. Hardeep Rivera Potassium [Moles/Vol] 4.2 mmol/L Normal 3.5-5.1 [facility] Comment on above: Performed By: #### HARI OLSONRO #### [facility] Laboratory [address] [place] [address] Dr. Hardeep Rivera Sodium [Moles/Vol] 133 mmol/L Critically low 136-[address] [facility] Comment on above: Performed By: #### HARI OLSONRO #### [facility] Laboratory [address] [place] [address] Dr. Hardeep Rivera Urea nitrogen [Mass/Vol] 28.0 mg/dL Critically high 7.0-18.0 [facility] Comment on above: Performed By: #### RANDALL OLSON #### [facility] Laboratory [address] [place], [place] [address] Dr. Hardeep Rivera Urea nitrogen/Creatinine [Mass ratio] 18.2 mg/mg Normal [facility] Comment on above: Performed By: #### RANDALL OLSON #### [facility] Laboratory [address] [place] [address] [address] Hardeep Rivera Vital Signs Date Time Vital Sign Value Performing Clinician Dami charles 04-08-2023 06:45-0400 Diastolic blood pressure 76 mm[Hg] Richard Roby [facility] 04-08-2023 06:45-0400 Heart rate 59 /min Richard Roby [facility] 04-08-2023 06:45-0400 Hourly Rounding Richard Roby [facility] 04-08-2023 06:45-0400 Mean blood pressure 106 mm[Hg] Richard Roby [facility] 04-08-2023 06:45-0400 Respiratory rate 18 /min Richard Roby [facility] 04-08-2023 06:45-0400 SaO2% (BldA) [Mass fraction] 96 % Richard Roby [facility] 04-08-2023 06:45-0400 Systolic blood pressure 167 mm[Hg] Richard Roby [facility] 04-08-2023 05:30-0400 Diastolic blood pressure 88 mm[Hg] Richard Roby [facility] 04-08-2023 05:30-0400 Heart rate 52 /min Richard Roby [facility] 04-08-2023 05:30-0400 Hourly Rounding Richard Roby [facility] 04-08-2023 05:30-0400 Mean blood pressure 114 mm[Hg] Richard Roby [facility] 04-08-2023 05:30-0400 Respiratory rate 18 /min Richard Roby [facility] 04-08-2023 05:30-0400 SaO2% (BldA) [Mass fraction] 95 % Richard Roby [facility] 04-08-2023 05:30-0400 Systolic blood pressure 167 mm[Hg] Richard Roby [facility] 04-08-2023 04:39-0400 Diastolic blood pressure 90 mm[Hg] Richard Roby [facility] 04-08-2023 04:39-0400 Heart rate 56 /min Richard Roby [facility] 04-08-2023 04:39-0400 Hourly Rounding Richard Roby [facility] 04-08-2023 04:39-0400 Mean blood pressure 112 mm[Hg] Richard Roby [facility] 04-08-2023 04:39-0400 Respiratory rate 17 /min Richard Roby [facility] 04-08-2023 04:39-0400 SaO2% (BldA) [Mass fraction] 94 % Richard Roby [facility] 04-08-2023 04:39-0400 Systolic blood pressure 155 mm[Hg] Richard Roby [facility] 04-07-2023 21:48-0400 Respiratory rate 18 /min Richard Roby [facility] 04-07-2023 21:19-0400 Body temperature 98.06 [degF] Richard Ca [facility] 04-07-2023 21:19-0400 Heart rate 65 /min Richard Ca [facility] 04-07-2023 21:19-0400 Respiratory rate 19 /[facility] Encounters Encounter Date Encounter Type Care Provider Facility Start: 02-26-2025 End: 02-26-2025 Telephone encounter Magy Hui [facility] Ophthalmology Comment on above: Appointment (With Dr Vu) Start: 02-12-2025 End: 02-12-2025 ambulatory Sho Izaguirre APRN.INFORMATION TECHNOLOGY ANALYST Work Phone: Cardiology Comment on above: transplant labs Start: 02-12-2025 End: 02-12-2025 E-mail encounter from caregiver Sho Izaguirre APRN.INFORMATION TECHNOLOGY ANALYST Work Phone: Cardiology Start: 02-05-2025 End: 02-05-2025 ambulatory [facility] Start: 01-26-2025 End: 01-26-2025 Telephone encounter Tram Fishman APRN.INFORMATION TECHNOLOGY ANALYST Work Phone: Cardiology Comment on above: Medication Problem ( Attempted to call pt 01/26 x2 after hospital discharge to clarify Tacrolimus dosing of 0.5mg BID and Cellcept dosing of 500mg BID, to schedule f/u in [place] per consult note. Patient did not answer, attempted to call friend without answer. Got in touch with daughter Ana who lives in [place]. She will relay these dosing clarifications to her mother today. 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, unspecified whether fpc insulin use (HCC); Posterior vitreous detachment of both eyes Start: 01-18-2025 End: 01-21-2025 Telephone encounter Neurology Provider Neurology Comment on above: Future Appointment ( Kye Wilson) Start: 01-18-2025 Evaluation and manag ement of inpatient MARLYN TAYLOR Facility:[facility] Start: 01-18-2025 End: 01-18-2025 Evaluation and management of inpatient Marlyn Taylor KERRI Work Phone: Ophthalmology Comment on above: Neovascular glaucoma of left eye, severe stage (Primary Dx); Pseudophakia Start: 01-13-2025 End: 01-13-2025 Evaluation and management of inpatient TAO ROONEY Facility:[facility] Start: 01-12-2025 End: 01-12-2025 Evaluation and management of inpatient TAO ROONEY Facility:[facility] Start: 01-12-2025 End: 01-12-2025 Unlisted evaluation and management service [facility] Work Phone: Ophthalmology Comment on above: Neovascular glaucoma of left eye, severe stage (Primary Dx); Traumatic optic neuropathy; Pseudophakia Start: 01-11-2025 End: 01-25-2025 Evaluation and management of inpatient TAO ROONEY Facility:[facility] Start: 01-09-2025 Evaluation and manag ement of inpatient JERAD Oh NORTON [facility] Start: 01-09-2025 Evaluation and manag ement of inpatient TRAM HERNANDEZ [facility] Start: 01-09-2025 Evaluation and manag ement of [facility] Start: 01-08-2025 Evaluation and manag ement of inpatient [facility] Start: 01-08-2025 End: 01-10-2025 Evaluation and management of inpatient TAO ROONEY [facility] Start: 12-28-2024 End: 12-28-2024 Refill Loida Mathias APRN.CNP Work Phone: [facility] Laboratory Comment on above: Refill Request Start: 10-09-2024 End: 10-09-2024 ambulatory González Shanks Facility:[facility] Start: 10-09-2024 End: 10-09-2024 Patient encounter procedure González Shanks [facility] Start: 09-14-2024 End: 09-14-2024 ambulatory [facility] Start: 07-01-2024 End: 07-01-2024 ambulatory [facility] Start: 06-18-2024 End: 06-18-2024 ambulatory NON STAFF [facility] Work Phone: Start: 06-18-2024 End: 06-18-2024 Departed Referred [facility] Start: 04-07-2023 End: 04-08-2023 Emergency department patient visit Richard Ca [facility] Start: 03-05-2023 End: 03-05-2023 ambulatory [...] SCOT ROGERS Facility:[facility] Start: 09-08-2022 Refill Sandrita Santana DUSTY.INFORMATION TECHNOLOGY ANALYST Work Phone: Cardiology Comment on above: Refill Request Start: 08-04-2022 End: 08-04-2022 ambulatory NANCY AMY . Facility:[facility] Start: 08-02-2022 Telephone encounter Loida Mathias APRN.INFORMATION TECHNOLOGY ANALYST Work Phone: Cardiology Comment on above: Heart Transplant Fol low Up (Labs/) Start: 08-02-2022 End: 08-03-[address] TAO ROONEY . Facility:[facility] Start: 07-27-[address] TAO ROONEY . Facili ty:[facility] Start: 07-16-2022 End: 07-16-2022 Patient encounter procedure Eddie VERAS [facility] Start: 07-05-2022 Telephone encounter Sho Izaguirre APRN.INFORMATION TECHNOLOGY ANALYST Work Phone: Cardiology Comment on above: Heart Transplant Fol low Up; Lab Meeting Start: 07-03-2022 Telephone encounter Carmelita Bateman RN Ca rdiology Comment on above: Heart Transplant Fol low Up (labs) Start: 07-03-2022 End: 07-04-[address] TAO ROONEY . Facility:[facility] Start: 05-28-2022 End: 05-29-[address] TAO ROONEY . Facility:[facility] Start: 05-08-2022 Telephone encounter Loida Mathias APRN.INFORMATION TECHNOLOGY ANALYST Work Phone: Cardiology Comment on above: Heart Transplant Fol low Up (labs) Start: 05-07-2022 End: 05-08-[address] TAO ROONEY . Facility:[facility] Start: 04-24-2022 Telephone encounter Loida Mathias APRN.INFORMATION TECHNOLOGY ANALYST Work Phone: Cardiology Comment on above: Heart Transplant Fol low Up Start: 04-24-2022 End: 04-25-[address] TAO ROONEY . Facility:[facility] Start: 04-20-[address] TAO ROONEY . Facili ty:[facility] Start: 04-11-2022 ambulatory Loida Mathias APRN.CNP Work Phone: [facility] Start: 04-11-2022 Follow-up encounter Loida Mathias APRN.CNP Work Phone: Cardiology Comment on above: Heart Transplant Fol low Up (Labs) Start: 04-09-2022 End: 04-10-[address] TAO ROONEY . Facility:[facility] Start: 04-06-2022 Orders Only Loida Mathias APRN.INFORMATION TECHNOLOGY ANALYST Work Phone: Cardiology Comment on above: Heart replaced by tr ansplant (HCC) (Primary Dx) Start: 04-04-2022 Refill Loida Mathias APRN.INFORMATION TECHNOLOGY ANALYST Work Phone: Cardiology Comment on above: Rx Refills Procedures Date Procedure Procedure Detail Performing Clinician Start: 01-24-2025 Antibody screen ANDREZ TAYLOR Comment on above: Order Comment: Speci men Type: BLOOD SPECIMENOrdering Facility: [facility] Address: [address] [place] [address] Performed By: #### T SCR ####CC MAIN BLOOD BANKCLIA [id number] [address] Start: 01-20-2025 End: 01-20-2025 Computerized ophthalmic imaging retina Marlyn Taylor PA-C Work Phone: Start: 01-15-2025 Antibody screen ANDREZ TAYLOR Comment on above: Order Comment: Speci men Type: BLOOD SPECIMENOrdering Facility: [facility] Address: [address] [place] [address] Performed By: #### T SCR ####CC MAIN BLOOD BANKCLIA [id number] [address] OF [place] Start: 01-13-2025 Echocardiography MONALISA TAYLOR Start: 01-12-2025 Gluc bld gluc mntr d ev cleared fda spec home use [facility] Provider Start: 01-11-2025 Antibody screen ANDREZ Mark NADEGE Comment on above: Order Comment: Speci men Type: BLOOD SPECIMENOrdering Facility: [facility] Address: [address] [place] [address] [place] [address] Performed By: #### T SCR ####CC MAIN BLOOD BANKCLIA [id number] [place] [id number] [place] Start: 08-10-2013 H/O: heart recipient Heart transplan arianna Loida Mathias DRUG CLERK.INFORMATION TECHNOLOGY ANALYST Work Phone: Start: 03-19-2006 End: 08-12-2013 H/O: heart recipient Heart replaced by transplant Loida Mathias DRUG CLERK.INFORMATION TECHNOLOGY ANALYST Work Phone: H/O: heart recipient Heart trans planted (HCC) Loida Iammarino DRUG CLERK.INFORMATION TECHNOLOGY ANALYST Work Phone: H/O: heart recipient Heart repla nitish by transplant ([facility]) Loida Iammarino DRUG CLERK.INFORMATION TECHNOLOGY ANALYST Work Phone: H/O: heart recipient Heart trans planted (HCC) Loida Iammarino DRUG CLERK.INFORMATION TECHNOLOGY ANALYST Work Phone: H/O: heart recipient Heart trans planted (HCC) Loida Iammarino DRUG CLERK.INFORMATION TECHNOLOGY ANALYST Work Phone: H/O: heart recipient Heart trans planted (HCC) Sho Izaguirre APRN.INFORMATION TECHNOLOGY ANALYST Work Phone: H/O: heart recipient Hx of heart transplant( Confirmed ) Eddie VERAS H/O: heart recipient Heart repla nitish by transplant (HCC) Sho Izaguirre APRN.INFORMATION TECHNOLOGY ANALYST Work Phone: Plan of Treatment Date Care Activity Detail Author Start: 02-09-2031 Urine microalbumin profile DTaP,Tdap,Td Vaccine (2 - Tdap) [facility] Start: 01-25-2026 Complete blood count Hemoglobin/Noah tocrit [facility] Start: 01-25-2026 Creatinine measurement Serum Creatin ine [facility] Start: 01-21-2026 Complete blood count Hemoglobin/Noah [facility] Start: 01-21-2026 Creatinine measurement Serum Creatin ine [facility] Start: 01-20-2026 Glaucoma screening Dilated Retinal E xam [facility] Start: 01-18-2026 Complete blood count Hemoglobin/Noah [facility] Start: 01-18-2026 Creatinine measurement Serum Creatin ine [facility] Start: 01-12-2026 Complete blood count Hemoglobin/Noah [facility] Start: 01-12-2026 Creatinine measurement Serum Creatin ine [facility] Start: 01-12-2026 [facility] Start: 04-07-2025 End: 04-07-2025 Patient encounter procedure 04/07/2025 1:00 PM EDT Office Visit [facility] [address] [place] [address] Ry Vu MD [address] [place] [address] 02/26/2025 See phone encounter for changing this appt per Magy Augustin Ophthalmology Comment on above: 02/26/2025 See phone encounter for changing this appt per Magy Augustin Start: 03-17-2025 End: 03-17-2025 Patient encounter procedure 03/17/2025 10:45 AM EDT Office Visit [facility] [address] [place] [address] Ry Vu MD [address] [place] [address] *NEW PER NADEGE CRAO/NVG OS, T2 NPDR, DFE/OCT/OPTOS Ophthalmology Comment on above: *NEW PER NADEGE CR AO/NVG OS, T2 NPDR, DFE/OCT/OPTOS Start: 03-15-2025 End: 03-15-2025 Patient encounter procedure 03/15/2025 9:00 AM EDT Office Visit [facility] [address] [place] [address] Aline Stark MD [address] [place] [address] Mychart message sent Ophthalmology Comment on above: Mychart message sent Start: 02-19-2025 End: 02-19-2025 Patient encounter procedure 02/19/2025 9:30 AM EDT Office Visit [facility] Medicine [address] [place] [address] Trudi Madrid APRN.INFORMATION TECHNOLOGY ANALYST [address] [place] [address] Hospital follow up, DREW on CKD3 [facility]ney Medicine Comment on above: Hospital follow up, DREW on CKD3 Start: 02-15-2025 End: 02-15-2025 Patient encounter procedure 02/15/2025 10:40 AM EDT Office Visit [facility] [address] [place] [id number] Charlene Wilson MD [address] [place], [place] [id number] Left ICA Aneurysm, DSA [facility] Comment on above: Left ICA Aneurysm, D SA Start: 02-15-2025 End: 02-15-2025 Patient encounter procedure 02/15/2025 8:30 AM EDT Office Visit [facility] [address] [place] [address] Aline Stark MD [address] [place] [address] Mychart message sent Ophthalmology Comment on above: Mychart message sent Start: 02-03-2025 End: 02-03-2025 Patient encounter procedure Ophthalmology Comment on above: Dr. Vu in [place] in 2-3 weeks (cannot be later) per Dr Taylor *NEW PER DANO TAYLOR AO/NVG OS, T2 NPDR, DFE/OCT/OPTOS Start: 02-01-2025 End: 02-01-2025 Patient encounter procedure 02/01/2025 1:00 PM EST Office Visit [facility] [address] [place] [address] Charlene Wilson MD [address] [place], [place] [id number] Left ICA Aneurysm, DSA [facility] Comment on above: Left ICA Aneurysm, D SA Start: 01-21-2025 End: 01-21-2025 Insj non-tunneled central venous cath age 4 yr/> INSERTION NON-TUNNELED CV CATHETER OVER AGE 5 DREW (acute kidney injury) (HCC) 01/21/2025 5:49 PM EST [facility] Start: 01-20-2025 End: 01-20-2025 Patient encounter procedure 01/20/2025 2:15 PM EST Office Visit [facility] [address] [address] Marlyn Taylor PA-C [address] [place] [address] 01/20/25 @ 2:15pm Arleth Taylor Ophthalmology Comment on above: 01/20/25 @ 2:15pm Merritt Taylor Start: 12-02-2024 Advance Directive Discussion Advance Directive Discussion [facility] Start: 08-02-2024 Covid-19 Vaccine ( season) Covid-19 Vaccine ( season) [facility] Start: 08-02-2024 Influenza vaccination Influenza Vacc ine (#1) [facility] Start: 09-02-2022 Diabetes Screening Diabetes Screenin g [facility] Start: 08-02-2022 Influenza vaccination INFLUENZA (#1) [facility] Start: 07-19-2022 End: 09-18-2022 Tacrolimus [Mass/volume] in Blood TACROLIMUS/FK-506 BL Lab Routine Heart transplanted (HCC) Expected: 07/19/2022 (Approximate), Expires: 09/18/2022 [facility] Work Phone: Comment on above: Expected: 07/19/2022 (Approximate), Expires: 09/18/2022 Start: 05-21-2022 End: 07-21-2022 TACROLIMUS/FK-506 BL TACROLIMUS/FK-506 BL Lab Routine Heart transplanted (HCC) Expected: 05/21/2022, Expires: 07/21/2022 [facility] [facility] Work Phone: Comment on above: Expected: 05/21/2022 , Expires: 07/21/2022 Start: 04-23-2022 End: 06-23-2022 TACROLIMUS/FK-506 BL TACROLIMUS/FK-506 BL Lab Routine Heart transplanted (HCC) Expected: 04/23/2022, Expires: 06/23/2022 [facility] Work Phone: Comment on above: Expected: 04/23/2022 , Expires: 06/23/2022 Start: 04-09-2022 End: 06-09-2022 CBC W Auto Differential panel - Blood CBC + DIFF Lab Routine Heart replaced by transplant ([facility]) Expected: 04/09/2022, Expires: 06/09/2022 [facility] Work Phone: Comment on above: Expected: 04/09/2022 , Expires: 06/09/2022 Start: 04-09-2022 End: 06-09-2022 Comprehensive metabolic 2000 panel - Serum or Plasma COMP METABOLIC PANEL Lab Routine Heart replaced by transplant ([facility]) Expected: 04/09/2022, Expires: 06/09/2022 [facility] Work Phone: Comment on above: Expected: 04/09/2022 , Expires: 06/09/2022 Start: 04-09-2022 End: 04-06-2023 HEART/LUNG REC POST TX DSA HEART/LUNG REC POST TX DSA ALLOGEN Routine Heart replaced by transplant ([facility]) Expected: 04/09/2022, Expires: 04/06/2023 [facility] Work Phone: Comment on above: Expected: 04/09/2022 , Expires: 04/06/2023 Start: 04-09-2022 End: 06-09-2022 LIPID PANEL BASIC LIPID PANEL BASIC Lab Routine Heart replaced by transplant ([facility]) Expected: 04/09/2022, Expires: 06/09/2022 [facility] Work Phone: Comment on above: Expected: 04/09/2022 , Expires: 06/09/2022 Start: 04-09-2022 End: 06-09-2022 Magnesium [Mass/volume] in Serum or Plasma MAGNESIUM BLD Lab Routine Heart replaced by transplant ([facility]) Expected: 04/09/2022, Expires: 06/09/2022 [facility] Work Phone: Comment on above: Expected: 04/09/2022 , Expires: 06/09/2022 Start: 04-09-2022 End: 06-09-2022 TACROLIMUS/FK-506 BL TACROLIMUS/FK-506 BL Lab Routine Heart replaced by transplant ([facility]) Expected: 04/09/2022, Expires: 06/09/2022 [facility] Work Phone: Comment on above: Expected: 04/09/2022 , Expires: 06/09/2022 Start: 04-09-2022 End: 06-09-2022 URINALYSIS, DIPSTICK ONLY URINALYSIS, DIPSTICK ONLY Lab Routine Heart replaced by transplant ([facility]) Expected: 04/09/2022, Expires: 06/09/2022 [facility] Work Phone: Comment on above: Expected: 04/09/2022 , Expires: 06/09/2022 Start: 12-02-2021 ADVANCE DIRECTIVE DISCUSSION ADVANCE DIRECTIVE DISCUSSION [facility] Start: 09-26-2021 COVID-19 VACCINE (3 - Pfizer risk 4-dose series) COVID-19 VACCINE (3 - Pfizer risk 4-dose series) [facility] Start: 09-26-2021 COVID-19 VACCINE (3 - Pfizer risk series) COVID-19 VACCINE (3 - Pfizer risk series) [facility] Start: 03-04-2020 Hepatitis B surface antibody level LDL CHOLESTEROL [facility] Start: 2019 RSV Vaccine (1 - 1-d ose 75+ series) RSV Vaccine (1 - 1-dose 75+ series) [facility] Start: 06-14-2015 Hemoglobin A1c measurement HbA1C [facility] Start: 06-14-2015 Hemoglobin A1c/Hemoglobin.total in Blood HBA1C [facility] Start: 11-01-2013 PNEUMOCOCCAL: 65+ (3 - PCV) PNEUMOCOCCAL: 65+ (3 - PCV) [facility] Start: 2009 ADULT PREVNAR ADULT PREVNAR [facility] Start: 1994 SHINGRIX VACCINE (1 of 2) SHINGRIX VACCINE (1 of 2) [facility] Start: 1963 SHINGRIX VACCINE (1 of 2) SHINGRIX VACCINE (1 of 2) [facility] Start: 1963 Urine microalbumin profile DTAP,TDAP,TD (1 - Tdap) [facility] Start: 1962 ANNUAL PCP TEAM SAFETY TECH ESTRELLA DISEASE VISIT ANNUAL PCP TEAM CHRONIC DISEASE VISIT [facility] Start: 1962 Anxiety Screening Anxiety Screening [facility] Start: 1962 BP CONTROLLED (<130/80) BP CONTROLLE D (<130/80) [facility] Start: 1962 Depression Screening Depression Scre ening [facility] Start: 1955 Screening for malign ant neoplasm of cervix Cervical Cancer Screening [facility] Start: 1954 3 comp foot exam completed DIABETIC FOOT EXAM [facility] Start: 1954 Diabetic foot examination Diabetic Foot Exam [facility] Start: 1954 Hepatitis B screening URINE ALBUMIN:CREATININE RATIO [facility] Start: 1954 Hepatitis C antibody , confirmatory test DILATED RETINAL EXAM [facility] Start: 1950 PNEUMOCOCCAL: 65+ (1 - PCV) PNEUMOCOCCAL: 65+ (1 - PCV) [facility] Insj tunneled cvc w/ o subq port/bull float finisher age 4 yr/> INSERTION TUNNELED CV CATHETER DREW (acute kidney injury) (HCC) [facility] ANGIO HB6 [facility] Immunizations Immunization Date Immunization Notes Care Provider Valente mendes 09-28-2023 influenza virus vaccine, unspecified formulation González Shanks [facility] 05-20-2023 pneumococcal 20-matthew nt conjugate vaccine González Shanks [facility] 07-14-2022 influenza virus vaccine, unspecified formulation González Shanks [facility] 06-05-2022 SARS-CoV-2 mRNA (mkwwawgabgr-vohg-oxqan se) vaccine Morgan SALAM [facility] 08-29-2021 SARS-CoV-2 (COVID-19 ) mRNA BNT-162b2 vax Morgan SALAM [facility] 08-02-2021 SARS-CoV-2 (COVID-19 ) mRNA BNT-162b2 vax Morgan SALAM [facility] 07-05-2021 influenza virus vaccine, unspecified formulation Morgan SALAM [facility] 09-29-2020 influenza, unspecifi ed formulation Morgan SALAM [facility] 07-24-2020 influenza virus vaccine, unspecified formulation Morgan SALAM [facility] 09-02-2017 influenza virus vaccine, unspecified formulation Morgan SALAM [facility] 08-07-2017 pneumococcal conjuga te vaccine, 13 valent Morgan SALAM [facility] 08-14-2016 influenza virus vaccine, unspecified formulation Morgan SALAM [facility] 09-29-2015 pneumococcal conjuga te vaccine, 13 valent Morgan SALAM [facility] 08-04-2015 influenza virus vaccine, unspecified formulation Morgan SALAM [facility] 09-15-2014 influenza virus vaccine, whole virus Loida Mathias APRN.INFORMATION TECHNOLOGY ANALYST Work Phone: [facility] 09-15-2014 influenza, whole Morgan SALAM [facility] 11-01-2012 pneumococcal polysaccharide vaccine, 23 valent Loida Mathias DRUG CLERK.INFORMATION TECHNOLOGY ANALYST Work Phone: [facility] 12-28-2009 novel [id number], all formulations Loida Iammateresitao DRUG CLERK.INFORMATION TECHNOLOGY ANALYST Work Phone: [facility] Work Phone: 08-19-2009 influenza virus vaccine, unspecified formulation Loida Iammarino DRUG CLERK.INFORMATION TECHNOLOGY ANALYST Work Phone: [facility] 09-01-2006 influenza virus vaccine, unspecified formulation Loida Iammarino DRUG CLERK.INFORMATION TECHNOLOGY ANALYST Work Phone: [facility] Work Phone: 09-01-2006 pneumococcal polysaccharide vaccine, 23 valent Loida Iammarino DRUG CLERK.INFORMATION TECHNOLOGY ANALYST Work Phone: [facility] Work Phone: NEGATED: Highlighted row has not occurred!07-12-2022 influenza virus vaccine, unspecified formulation Eddie VERAS [facility] Payers Date Payer Category Payer Self-pay 2022 Medicare UHC MEDICARE UHC DUAL COMPLETE HMO SNP [id number] 2022-Present [phone] [address] [place] [address] Medicare [id number] 2022 Medicare UHC MEDICARE UHC DUAL COMPLETE HMO SNP [id number] 2022-Present [phone] [address] [place] [address] Medicare [id number] 2022 Medicare (Managed Care) [id number]. [id number] 1959 Medicaid [id number] 1959 Medicare [id number] 1959 Self-pay [id number] 1959 Unknown [id number] 1944 Unknown [id number] [id number] 93 1944 Unknown [id number] 2.16.840.1.549160.3.579.2.5 1944 Unknown [id number] 2.16.840.1.806291.3.579.2.5 93 1944 Unknown [id number] 2.16.840.1.734946.3.579.2.5 1944 Unknown [id number] 2.16.840.1.844977.3.579.2.5 93 1944 Unknown [id number] 2.16.840.1.104415.3.579.2.5 1944 Unknown [id number] 2.16.840.1.421337.3.579.2.5 1944 Unknown [id number] 2.16.840.1.795438.3.579.2.5 1944 Unknown [id number] 2.16.840.1.653563.3.579.2.5 1944 Unknown [id number] 2.16.840.1.132371.3.579.2.5 1944 Unknown [id number] 2.16.840.1.089444.3.579.2.5 1944 Unknown [id number] 2.16.840.1.646443.3.579.2.5 1944 Unknown [id number] 2.16.840.1.594480.3.579.2.5 1944 Unknown [id number] 2.16.840.1.679383.3.579.2.5 1944 Unknown [id number] 2.16.840.1.578829.3.579.2.5 1944 Unknown [id number] 2.16.840.1.763647.3.579.2.5 1944 Unknown [id number] 2.16.840.1.266163.3.579.2.5 93 1944 Unknown [id number] 2.16.840.1.050670.3.579.2.5 93 1944 Unknown [id number] 2.16.840.1.566033.3.579.2.7 27 Unknown [id number] 2.16.840.1.832216.3.579.2.5 93 Social History Date Type Detail Facility [facility]: 05[facility]13-[facility] Work Phone: History of tobacco use Cigarette Smoker [facility] Work Phone: Start: 09-07-2019 End: 01-20-2025 Alcohol intake Current non-drinker of alcohol (finding) [facility] Start: 1945 Sex Assigned At Not on file [facility] Start: 07-12-2022 Never smoked t obacco (finding) [facility] Never [facility] Start: 09-07-2019 End: 01-20-2025 Female [facility] History of tobacco use Current smoker [facility] Start: 05-13-2019 End: 01-20-2025 Cigarettes smoked current (pack per day) - Reported 0.3 [facility] Start: 05-13-2019 Tobacco use and exposure Smokeless tobacco non-user [facility] Start: 1945 Sex Assigned At Female F [facility] Goals Date Patient Goal Desired Activity /State Personal health goal Functional Status Date Assessment Result Facility 01-25-2025 Are you deaf, or do you have serious difficulty hearing No 01/25/2025 1:00 PM Rachel Phillip RN No [facility] 01-25-2025 Are you blind, or do you have serious difficulty seeing, even when wearing glasses No 01/25/2025 1:00 PM Rachel Phillip, SHELDON No [facility] 01-25-2025 Do you have serious difficulty walking or climbing stairs No 01/25/2025 1:00 PM Rachel Phillip, SHELDON No [facility] 01-25-2025 Do you have difficul ty dressing or bathing No 01/25/2025 1:00 PM Rachel Phillip RN No [facility] 01-25-2025 Because of a physica l, mental, or emotional condition, do you have difficulty doing errands alone such as visiting a physician's office or shopping No 01/25/2025 1:00 PM Rachel Phillip RN No [facility] 04-07-2023 Functional Status N/A [facility] 07-05-2015 Are you deaf, or do you have serious difficulty hearing No 07/05/2015 2:33 PM EDT Trish AquinoRn) (Hist), RN No [facility] 07-05-2015 Are you blind, or do you have serious difficulty seeing, even when wearing glasses No 07/05/2015 2:33 PM Trish Ayala) (Hist), RN No [facility] 07-05-2015 Do you have serious difficulty walking or climbing stairs No 07/05/2015 2:33 PM Trish AyalaRn) (Hist), RN No [facility] 07-05-2015 Do you have difficul ty dressing or bathing No 07/05/2015 2:33 PM Trish Ayala) (Hist), RN No [facility] 07-05-2015 Because of a physica l, mental, or emotional condition, do you have difficulty doing errands alone such as visiting a physician's office or shopping No 07/05/2015 2:33 PM Trish Ayala) (Hist), RN No [facility] Mental Status Date Assessment Result Facility 01-25-2025 Because of a physica l, mental, or emotional condition, do you have serious difficulty concentrating, remembering, or making decisions No 01/25/2025 1:00 PM Rachle Phillip RN No [facility] 07-05-2015 Because of a physica l, mental, or emotional condition, do you have serious difficulty concentrating, remembering, or making decisions No 07/05/2015 2:33 PM Trish Ayala) (Hist), RN No [facility] Clinical Notes 11-14-2017 to 02-26-2025 Telephone Encounter - Magy Hui COA - 02/26/2025 11:40 AM EDTTelephone Encounter - Magy Hui COA - 02/26/2025 11:40 AM Marlyn Rousseau PA-C - 01/20/2025 2:15 PM EST Note Date & Type Note Facility 02-26-2025 Telephone encounter Note I left message at home number. When patient calls back please move the appt on 03/17/[address] Vu from 10.45 to 8.45 am same day in [place] patient rust. Pt was booked in wrong type of appt slot. [facility] 02-26-2025 Miscellaneous Notes I left message at home number. When patient calls back please move the appt on 03/17/[address] Vu from 10.45 to 8.45 am same day in [facility] patient rust. Pt was booked in wrong type of appt slot. documented in this encounter [facility] 02-05-2025 Note MD Cardiology - [facility] Subjective Sylvia Herrera is a 79 y.o. year old female patient being seen for follow up [facility] for DREW. Doing much better s/p hospital stay. Denies chest pain, SOB, and palpitations. C/o fatigue and weakness. Patient Active Problem List Diagnosis Nonischemic congestive cardiomyopathy (CMS/HCC) Anxiety Hypertensive disorder Hypothyroidism Right bundle branch block Status post heart transplantation (CMS/HCC) DREW (acute kidney injury) Anemia Chronic diarrhea Acute renal failure CKD (chronic kidney disease) Depressive disorder Diabetes mellitus, type II (CMS/HCC) Diarrhea in adult patient Diverticulosis of large intestine without hemorrhage Duodenitis Gastroenteritis High anion gap metabolic acidosis Hypokalemia Hypomagnesemia Left upper quadrant abdominal pain Leukocytosis Mood disorder due to a general medical condition Nausea and vomiting Pancreatic insufficiency Prophylactic immunotherapy Right groin pain Severe malnutrition Generalized anxiety disorder Hypertension Coronary heart disease Valvular heart disease Kidney stone Pneumonia of left lower lobe due to infectious organism Acute kidney injury superimposed on CKD Acute cystitis without hematuria Acute gastric ulcer without hemorrhage or perforation Bronchitis C. 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 She is followed by the [facility] cardiology service. She has had [...] (clip 110). The left atrial cavity is (more content not included)... [facility] 01-26-2025 Telephone encounter Note Attempted to call pt 01/26 x2 after hospital discharge to clarify Tacrolimus dosing of 0.5mg BID and Cellcept dosing of 500mg BID, to schedule f/u in [place] per consult note. Patient did not answer, attempted to call friend without answer. Got in touch with daughter Ana who lives in [place]. She will relay these dosing clarifications to her mother today. States they are attempting to move her to low income housing closer to [place] soon. Tram Fishman APRN.ODETTE [facility] [phone] [facility] Work Phone: 01-26-2025 Miscellaneous Notes Attempted to call pt 01/26 x2 after hospital discharge to clarify Tacrolimus dosing of 0.5mg BID and Cellcept dosing of 500mg BID, to schedule f/u in [place] per consult note. Patient did not answer, attempted to call friend without answer. Got in touch with daughter Ana who lives in [place]. She will relay these dosing clarifications to her mother today. States they are attempting to move her to low income housing closer to [place] soon. Tram Fishman APRN.INFORMATION TECHNOLOGY ANALYST [facility] [phone] documented in this encounter [facility] 01-25-2025 Note [facility] 01-24-2025 Note [facility] 01-23-2025 Note [facility] 01-23-2025 Note [facility] 01-22-2025 Note [facility] 01-22-2025 Note [facility] 01-22-2025 Note [facility] 01-21-2025 Note [facility] 01-21-2025 Note [facility] 01-21-2025 Note [facility] 01-21-2025 Note [facility] 01-21-2025 Note Date of Procedure 01/20/2025. Power Shovel Operator Information Vinyl Welder And Fabricator: JOHNNY. Start time: 3:57 PM. Stop time: 3:57 PM. Disc Right Eye Normal. Left Eye Cupping, Pallor. Macula Right Eye Microaneurysms, Hemorrhage. Periphery Right Eye Hemorrhage. Left Eye Hemorrhage. [facility] 01-20-2025 Note Date of Procedure 01/20/2025. Power Shovel Operator Information Vinyl Welder And Fabricator: JOHNNY. Start time: 3:57 PM. Stop time: 3:57 PM. OCT Macula Interpretation Right Eye Normal foveal contour. Findings include Intraretinal fluid, Subretinal fluid. Left Eye Abnormal foveal contour. Findings include IS/OS junction, Atrophy. Interval Change Right Eye Initial. Left Eye Initial. [facility] 01-20-2025 History of Present illness Narrative Patient presents for follow up on [facility]. Saw her 2 days ago but was not feeling well and went back to the floor before exam. From Dr. Calderon note on 01/12/25: Patient became nonresponsive and was brought back to the clinic demi during imaging. Had new AMS and MARGUERITE was called. On arrival, she became nonresponsive without a pulse to palpation but then returned to consciousness a couple minutes later. All problems with bold in text below addressed at this visit with patient 1. 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 Alberto later on 01/12/25 noted to have NLP vision OS - Tried to obtain imaging at that time, but patient became nonresponsive and had altered mental status as above - Today VA was very distant LP (verified by PA) - IOP 28 today, much improved - Based on sclerotic vessels on exam OS, picture is most consistent with CRAO - Need an FA to verify, but unable to obtain today (pt is currently inpatient and reports they were unable to get IV access with her on the floor (tried arm, hand, and foot) - Photography did not recommend oral intake of fluorescein due to patient influenza positive status and c diff positive status - Patient still denies pain today - Discussed case with retina fellow Dr. Yeh - No indication for the benefit of PRP or anti-VEGF at this time - Will need an FA to see if pt would benefit from PRP - Discussed with patient that she NEEDS to follow up outpatient to try to get FA - Will have her see Dr. Vu in [place] in 2-3 weeks - Try again for FA at that visit 2. Hypertensive retinopathy OD - Exam with nasal sclerotic vessels and CWS with exudates - Emphasized importance of good blood pressure control - Concern for ischemia OD but unable to get FA today - No clear signs of NV, no indication for urgent PRP - Will follow up in 2-3 weeks and try for FA again 3. 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 Yeh - No clear indication for PRP or anti-VEGF today - Will need FA due to concern for ischemia or proliferative processes that cannot be seen on exam - Sclerotic vessel is concerning - Will have patient follow up with Dr. Vu in 2-3 weeks in [place] - Try for FA at this visit - Emphasized importance of this follow up visit when she is outpatient 4. Chronic PVD OU - Emphasized return to office precautions and patient will call with any changes in vision - Remains stable on exam, continue to monitor 5. Pseudophakia OU - s/p CEIOL OU in 2005 - Stable, monitor I have seen and examined this patient. I have confirmed and edited as necessary the relevant HPI, ophthalmic history, medications, ROS, and the neuro and ophthalmic exam findings as obtained by others and myself. I have discussed the case and the management of this patient's care with the attending Physician, if applicable. I also have reviewed and agree with the assessment and plan as stated above and agree with all of its relevant components. I have discussed the treatment alternatives with the patient and the patient's family, if applicable. Follow-up as noted below, or sooner if new symptoms develop. documented in this encounter [facility] 01-20-2025 Note [facility] 01-20-2025 Note [facility] 01-20-2025 Note [facility] 01-19-2025 Note [facility] 01-18-2025 Note [facility] 01-18-2025 History of Present illness Narrative Patient not feeling well today. Will have her reschedule for Saturday documented in this encounter [facility] 01-18-2025 Note HNO ID: [id number] Author: MARLYN TAYLOR PA-C Service: ? Author Type: Physician Telephoto Installer Type: Progress Notes Filed: 01/18/2025 14:32 Note Text: Patient not feeling well today. Will have her reschedule for Saturday [facility] 01-18-2025 Telephone encounter Note Patient scheduled for appointment on 02/01/[address] Wilson at 1 PM at [facility]. Patient admitted and will be notified of appointment at discharge. [facility] 01-18-2025 Miscellaneous Notes Patient scheduled for appointment on 02/01/[address] Wilson at 1 PM at [facility]. Patient admitted and will be notified of appointment at discharge. Images from the original note were not included. OSH imaging/records received from [facility]: January 18, 2025 -2024 Records available in Care Everywhere PENDING: -2024 Images Images from the original note were not included. Hospital Discharge Follow Up Order: Follow Up Appointment - Neurosurgery; 14-30 days; [facility] Provider; CHARLENE WILSON [[id number]] (Order [id number]) [facility] Images in [facility] (Requesting from [employer]) documented in this encounter [facility] 01-18-2025 Telephone encounter Note Images from the original note were not included. OSH imaging/records received from [facility]: January 18, 2025 -2024 Records available in Care Everywhere PENDING: -2024 Images [facility] 01-18-2025 Telephone encounter Note Images from the original note were not included. Hospital Discharge Follow Up Order: Follow Up Appointment - Neurosurgery; 14-30 days; [facility] Provider; CHARLENE WILSON [[id number]] (Order [id number]) [facility] Images in Chart and [facility] (Requesting from [employer]) [facility] 01-18-2025 Note [facility] 01-17-2025 Note [facility] 01-17-2025 Note [facility] 01-17-2025 Note [facility] 01-16-2025 Note [facility] 01-15-2025 Note [facility] 01-15-2025 Note [facility] 01-15-2025 Note SARS-COV-2 (AGENT OF COVID-19) RNA: Not detected INFLUENZA A RNA: Detected INFLUENZA B RNA: Not detected RESPIRATORY SYNCYTIAL VIRUS (RSV) RNA: Not detected [facility] Comment on above: Performed By: #### [id number] ####[facility] LABCLIA [id number] [place] [address] [place] 01-14-2025 Note [facility] 01-14-2025 Note [facility] 01-14-2025 Note [facility] 01-14-2025 Note [facility] 01-13-2025 Note [facility] 01-13-2025 Note [facility] 01-13-2025 Note [facility] 01-13-2025 Note [facility] 01-12-2025 Note [facility] 01-12-2025 Note [facility] 01-12-2025 History of Present illness Narrative Urgent follow up visit for NVG. Neovascular Glaucoma, Left Eye ?Remote GARLAND/RVO, Left eye - 79 y/o F with history of CKD, heart transplant, HTN, and no documented ocular history here for concerns of DREW found to have anisocoria and ptosis with concern for CNIII palsy - Initial exam in ED(01/11/2025): patient reports acute onset decrease in vision in left eye about 1 month ago following trauma. Says vision out of left eye is at baseline for the last month. VA 20/30 OD, hand motion OS, IOP 20/55. NVI OS and hazy cornea, pallorous nerve. OD with sclerotic vessels and CWS. Started max gtts (cannot take diamox with DREW) - Follow up exam (01/12/2025): VA declined to NLP, IOP reduced to 38 from 55 following 3 rounds of IOP lowering drops and cornea largely cleared. - ROS: denies strength changes, numbness, tingling, eye pain, headaches, jaw pain, fevers, night sweats, scalp tenderness - gonio: OD: open to CBB 360, OS: PAS 360 - Attempted to obtain imaging including: OCT mac, OCT RNFL, Optos photos, slit lamp photos (01/12/2025) but interrupted with medical emergency per below ?traumatic optic neuropathy, left eye - reports severe reduction in vision one month ago that has not changed since the injury - exam with obliterated, sclerotic vessels and notable pallorous nerve Hypertensive retinopathy, right eye - notably with nasal sclerotic vessels and CWS with exudates - patient reports BP under control - will establish with retina as this is now good seeing eye Ddx: Asymmetry between eyes is marked with pronounced end stage pallor OS and sclerotic vessels OS. Given acute vision changes following trauma, it is possible this led to elevated IOP and glaucoma which then induced a CRVO leading to NVI of the left eye. Notably the right eye has changes suggestive of chronic damage (sclerotic vessels) and would benefit from close follow up pending medical stability. Type 2 diabetes - Last A1c: 5.2 (2020) PLAN: - Good rseponse to topical IOP lowering therapy and not endorsing eye pain even on admission or during current exam - Gonio with complete PAS OS and OD within normal limits. However patient without pain and VA is NLP so will defer PRINTING TABLE HAND and Avastin at this time. - Continue Cosopt BID and brimonidine TID left - Otherwise comfort measures OS - Follow up with Dr. Diane Stark for glaucoma and IOP management 4-6 weeks [place] - Follow up, pending medical stability, this or Saturday; please page ophthalmology when medically cleared for repeat exam to get ophthalmologic imaging - VA, IOP, DFE, Optos OU, OCT mac OU, OCT RNFL OU, FA with transit OD - Please page ophthalmology if patient is to go to the OR for potential add on of PRP in both eyes in OR (OS for comfort measures) Of note, during imaging the patient became nonresponsive and was brought back to the clinic demi. On my assessment patient with marked new altered mental status and unable to follow commands. HR 63, BP 89/48, and [id number] with BG 95. MARGUERITE called immediately. On arrival she became nonresponsive without a pulse to palpation but then returned to consciousness a couple of minutes later. She was then taken by the emergency response team back to the floor for suvbsequent workup. Paco Vega MD Ophthalmology Resident Case discussed with Dr. Yeh and Dr. Alberto. 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 There was concern for left lower lobe pneumonia as well as UTI and she was found to have worsening kidney function. Creatinine was up to 6 at [place]. the patient also had elevated BNP to her history of heart transplant she was transferred to [facility]. Unfortunately we do not have heart transplant service here so the patient was ultimately transferred to [facility] on 01/10. During her hospitalization, the patient was placed on empiric antibiotics with azithromycin and ceftriaxone and she continued to do well on room air. As she was on immunosuppressants, infectious disease was consulted and of empiric therapy for antiviral or PCP pneumonia. She was initiated on ganciclovir. and echocardiogram was performed which was concerning for hyperdynamic so the patient was initiated with fluids with bicarb also considering her acidemia. also on the morning of 01/09 and a stroke alert was called as the patient was exhibiting left-sided ptosis as well as anisocoria. CT imaging was unremarkable however MRA head did show 1.2 cm left cavernous versus paraclinoid aneurysm although imaging was suboptimal due to motion artifact. Neurology was consulted who contacted neurovascular who was considering corticosteroids but this was deferred as the patient was transferred to [facility]. Surgical, Invasive or Diagnostic Procedures Done During Admission: None Consultations During Admission: Cardiology, Infectious Disease, Nephrology, and Neurology Dear Dr. Toribio MD, Sylvia is advised to follow up with you within 1-2 weeks. Items to follow up in ambulatory setting: Pending clinical course at [facility] Follow-up with: Cardiology, Nephrology, and Neurology Scheduled appointments: Future Appointments Date Time Provider Department Center 01/27/2025 10:15 AM Anisha Daly MD [facility] Your medication list START taking these medications Instructions Last Dose Given Next Dose Due AZITHROMYCIN IVPB 500 MG IN NS 250 ML MINI-BAG PLUS (PYXIS CNR) Start taking on: January 11, 2025 Infuse 250 mL (500 mg) into a venous catheter 1 (one) time each day at the same time for 1 dose. CEFTRIAXONE IVPB 1 G MINI-BAG PLUS IN NS (PYXIS CNR) Infuse 50 mL (1 g) into a venous catheter 1 (one) time each day at the same time for 1 dose. ganciclovir in sodium chloride 0.9 % 100 mL IVPB Start taking on: January 12, 2025 Do not start before January 12, 2025. CONTINUE taking these medications Instructions Last Dose Given Next Dose Due aspirin 81 mg EC tablet carvedilol 25 mg tablet Commonly known as: Coreg Take 1 tablet (25 mg) by mouth with breakfast and with evening meal. Creon 24,000-76,000 -120,000 unit capsule Generic drug: gvwozb-ayrkafaf-juikdwj dorzolamide-timolol 22.3-6.8 mg/mL ophthalmic solution Commonly known as: Cosopt escitalopram 10 mg tablet Commonly known as: Lexapro levothyroxine 112 mcg tablet Commonly known as: Synthroid, Levoxyl magnesium oxide 400 mg tablet Commonly known as: Mag-Ox mycophenolate 250 mg capsule Commonly known as: Cellcept omega-3 1,000 mg capsule capsule pramipexole 0.5 mg tablet Commonly known as: Mirapex simvastatin 20 mg tablet Commonly known as: Zocor tacrolimus 1 mg capsule Commonly known as: Prograf TAKE 1 CAPSULE BY MOUTH IN THE MORNING AND AT BEDTIME STOP taking these medications furosemide 40 mg tablet Commonly known as: Lasix losartan 25 mg tablet Commonly known as: Cozaar Where to Get Your Medications Information about where to get these medications is not yet available Ask your nurse or doctor about these medications AZITHROMYCIN IVPB 500 MG IN NS 250 ML MINI-BAG PLUS (PYXIS CNR) CEFTRIAXONE IVPB 1 G MINI-BAG PLUS IN NS (PYXIS CNR) ganciclovir in sodium chloride 0.9 % 100 mL IVPB Sylvia is allergic to promethazine hcl and promethazine. Disposition: Hospice/Medical Facility (51) Discharge Condition: Stable Code Status: Full Code Diagnostic Results Hematology: Results from last 7 days Lab Units 01/10/25 0419 01/09/25 0726 01/08/25 2155 WBC AUTO 10*3/uL 25.42* 17.00* 15.23* HEMOGLOBIN g/dL 9.7* 9.5* 9.7* HEMATOCRIT % 30.3* 30.9* 30.4* MCV fL 89.6 94.8 91.8 PLATELETS AUTO 10*3/uL 196 207 197 INR -- -- 1.44* (more content not included)... [facility] 01-10-2025 Note Attestation signed by Sherice Callahan MD at 01/22/2025 2:58 PM Agree with treatment plan. Stroke plan of care: Sylvia Herrera is a 79 y.o. female with a history of heart transplant on immunosuppressants, DREW and CKD, and right-sided cfvu-py-zaoqggow pleural effusion. 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 She does have a functional baseline but over the past year she has had multiple admissions to the hospital for various reasons. Her examination is ultimately nonfocal outside of her partial cranial nerve 3 palsy in his largely disoriented. 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 Callahan. [facility] 01-10-2025 Note Subjective 79 year old female for whom neurology was consulted for left ptosis and mydriasis. MRA shows left supraclinoid 1.2cm aneurysm which is the likely cause of partial left CN3 palsy. Discussed with Dr. Wright, Neurovascular team, they will evaluate the patient for this. Regarding mentation, she seems more alert and answers questions and follows commands more easily today compared to yesterday. Objective Patient Vitals for the past 24 hrs: BP Temp Temp src Pulse Resp SpO2 Weight 01/10/25 0808 141/83 36.3 ???C (97.4 ???F) Temporal 72 20 99 % -- 01/10/25 0419 147/80 36.2 ???C (97.2 ???F) Temporal 76 24 97 % 49.4 kg (108 lb 14.4 oz) 01/10/25 0000 149/78 -- -- 73 13 99 % -- 01/09/251999 152/82 36.3 ???C (97.3 ???F) Temporal 72 13 99 % -- 01/09/25 1800 142/74 -- -- 69 16 99 % -- 01/09/25 1617 141/71 36.4 ???C (97.5 ???F) Temporal 66 14 100 % -- Physical Exam Mental status: alert, oriented to person and place, follows simple commands Cranial nerves: left pupil 4mm and unresponsive, left pupil 2mm and reactive to light, EOMI, no facial weakness, left ptosis- additionally patient holds this eye completely shut due to poor vision in the left eye Motor: 5/5 all four extremities Asterixis noted Lab Results Component Value Date NA 140 01/10/2025 K 4.3 01/10/2025 CL 116 (H) 01/10/2025 ANIONGAP 13 01/10/2025 BUN 85 (H) 01/10/2025 CREATININE 4.51 (H) 01/10/2025 CALCIUM 6.8 (L) 01/10/2025 MG 1.9 01/08/2025 PHOS 4.9 01/08/2025 Lab Results Component Value Date BILITOT 0.3 01/09/2025 BILIDIR 0.1 01/08/2025 ALKPHOS 160 (H) 01/09/2025 AST 20 01/09/2025 ALT 26 01/09/2025 PROT 4.7 (L) 01/09/2025 ALBUMIN 2.9 (L) 01/09/2025 Lab Results Component Value Date WBC 25.42 (H) 01/10/2025 RBC 3.38 (L) 01/10/2025 HGB 9.7 (L) 01/10/2025 HCT 30.3 (L) 01/10/2025 MCV 89.6 01/10/2025 MCH 28.7 01/10/2025 MCHC 32.0 01/10/2025 RDW 15.1 (H) 01/10/2025 NEUTOPHILPCT 87.9 (H) 01/10/2025 LYMPHOPCT 3.5 (L) 01/10/2025 MONOPCT 6.6 01/10/2025 EOSPCT 0.3 01/10/2025 BASOPCT 0.2 01/10/2025 NEUTROABS 22.3 (H) 01/10/2025 LYMPHSABS 0.59 (L) 01/08/2025 MONOSABS 0.66 01/08/2025 EOSABS 0.08 01/10/2025 BASOSABS 0.05 01/10/2025 PLT 196 01/10/2025 NRBC 0.0 01/10/2025 No X-ray results found for the past 24 hoursNo MRI results found for the past [address] results found for the past 24 hours Encounter Date: 01/08/25 Electrocardiogram, 12-lead Result Value Ventricular Rate 63 Atrial Rate 63 [place] Interval 170 QRS DURATION 106 QT Interval 442 QTC CALCULATION(BAZETT) 452 P [place] 53 R-[place] 84 T Wave [place] 29 Impression Normal sinus rhythm Right atrial enlargement Incomplete right bundle branch block Borderline ECG When compared with ECG of 21-APR-1998 13:04, Incomplete right bundle branch block has replaced Left bundle branch block Confirmed by Wang Cross ([id number]) on 01/09/2025 10:48:51 AM Nutrition Screen Assessment Assessment & Plan 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 I agree with their assessment and plan as documented in the patient's progress note from today Cardiology Progress Note Subjective Subjective: Patient seen at bedside. Denies SOB, CP, palpitations, light headedness, dizziness. Objective: Patient Vitals for the past 24 hrs: BP Temp Temp src Pulse Resp SpO2 Weight 01/10/25 0808 141/83 36.3 ???C (97.4 ???F) Temporal 72 20 99 % -- 01/10/25 0419 147/80 36.2 ???C (97.2 ???F) Temporal 76 24 97 % 49.4 kg (108 lb 14.4 oz) 01/10/25 0000 149/78 -- -- 73 13 99 % -- 01/09/25 2000 152/82 36.3 ???C (97.3 ???F) Temporal 72 13 99 % -- 01/09/25 1800 142/74 -- -- 69 16 99 % -- 01/09/25 1617 141/71 36.4 ???C (97.5 ???F) Temporal 66 14 100 % -- 01/09/25 1246 127/63 36.4 ???C (97.6 ???F) Temporal 64 20 99 % -- Physical Examination: GENERAL: AOx2, in no acute distress. HEAD: Atraumatic, normocephalic. EYES: PAMELA, EOMI. NECK: No JVD present. CARDIAC: RRR. No murmur, rubs, or gallops. RESPIRATORY: CTAB, no increased effort of breathing. ABDOMEN: Soft, nontender, nondistended. EXTREMITIES: No lower extremity edema, peripheral pulses are 2+ bilaterally. NEURO: No focal deficits Relevant Lab Results Encounter Date: 01/08/25 Electrocardiogram, 12-lead Result Value Ventricular Rate 63 Atrial Rate 63 [place] Interval 170 QRS DURATION 106 QT Interval 442 QTC CALCULATION(BAZETT) 452 P [place] 53 R-[place] 84 T Wave [place] 29 Impression Normal sinus rhythm Right atrial enlargement Incomplete right bundle branch block Borderline ECG When compared with ECG of 21-APR-1998 13:04, Incomplete right bundle branch block has replaced Left bundle branch block Confirmed by Wang Cross ([id number]) on 01/09/2025 10:48:51 AM Lab Results Component Value Date TROPONINI 0.01 01/08/2025 Complete Echo (TTE) w/wo Imaging Agent, Strain, 3D, Bubble Study Result Date: 01/09/2025 1 1 [facility] [address] [place] [address] [phone] (fax) Echocardiogram-[facility] Name: SYLVIA HERRERA Study Date: 01/09/2025 03:38 PM B/P: 127 mmHg/63 mmHg HR: 65 bpm Date of : 1945 Location: [facility] Height: 62 in. Age: 79 year(s) Patient Room: 3184 Weight: 104 lb. Gender: Female Patient Status: InPt BSA: 1.45 m2 Indication: Congestive Heart Failure, heart transplant 2006 CC, ckd, Hypertension Examination: Echocardiogram (Complete) Conclusions Left Ventricle: The left ventricle is normal size. Global left ventricular systolic function is normal. The EF is 60 % visually. Left ventricular wall thickness is at upper normal limits. Right Ventricle: The right ventricle is normal in size. Normal right ventricular systolic function. Doppler studies suggest moderately elevated right sided pressures (elevated pulmonary pressure).Left Atrium: The left atriumm is enlarged, consistent with transplantation. Right Atrium: The right atrium is enlarged, consistent with transplantation. Mitral Valve: Mild mitral regurgitation. Aortic Valve: Mild aortic valve regurgitation. Tricuspid Valve: Mild tricuspid regurgitation. Measurements Left Ventricle Label Value Normal Value LVOTd 1.6 cm (18cm - 20cm) LVOT VTI 26.7 cm (18cm - 22cm) LVOT PGmax 3 mmHg LVEF visual 60 % LVDd, 2D 4.07 cm (3.9cm - 5.3cm) LVDs, 2D 3.25 cm (2.1cm - 4cm) IVSd, 2D 1 cm (0.6cm - 1.1cm) LVPWd, 2D 0.73 cm (0.6cm - 0.9cm) LV Mass, 2D ASE 106.84 g LV Mass Index, 2D ASE 73.7 g/m?? (44g/m?? - 88.4g/m??) RWT, MM 0.36 (0 - 0.42) LVSVI, 2D 20.7 ml/m2 LVOT PGmean 2 mmHg LVSV_LVOT 54 ml Right Ventricle Label Value Normal Value RVDd, 2D 3.1 cm (1.9cm - 3.8cm) TAPSE 1.3 cm Aortic Valve Label Value Normal Value AV DVI 0.85 AV VTI 28.9 cm Mitral Valve Label Value Normal Value MV E Vmax 1.58 m/s MV A Vmax 0.58 m/s MV E/A 2.72 MV E/E' lateral 15.2 MV E' lateral 0.1 m/s Tricuspid Valve Label Value Normal Value RA Pressure 3 mmHg RVSP 53 mmHg TR Vmax 3.55 m/s Aorta Label Value Normal Value AoRoot, 2D 2.6 cm (1.4cm - 3.8cm) Great Vessels Label Value Normal Value IVC 1.6 cm (1.2cm - 2.3cm) Valvular Assessment LVOT 0.7 - 1.1 m/sec Aortic Valve 1.0 - 1.7 m/sec Mitral Valve 0.6 - 1.3 m/sec Tricuspid Valve 0.3 - 0.7 m/sec Pulmonic Valve 0.6 - 0.9 m/sec Regurgitation Mild Mild Mild No Stenosis No No No No Max Velocity 0.92 m/sec 1.08 m/s 1.58 m/sec 0.83 m/s Max Gradient 5.00 mmHg 3.00 mmHg Mean Gradient 3.00 mmHg Valve Area 1.7 cm?? Findings Left Ventricle: The left ventricle is normal size. Global left ventricular systolic function is normal. The EF is 60 % visually. Left ventricular wall thickness is at upper normal limits. Right Ventricle: The (more content not included)... [facility] 01-10-2025 Note Hospital Medicine Daily Progress Note - 01/10/2025 7:37 AM; Room: [facility]184- Admission: 01/08/2025 7:06 PM; Length of stay: 2 days THE HOSPITALIST TEAM PREFERS TO USE Force-A CHAT FOR NON-URGENT COMMUNICATION 7AM-7PM. IF I DO NOT RESPOND WITHIN 20 MINUTES OR URGENT MATTERS, PLEASE CALL THROUGH THE BLEACH CHLORINATOR. FROM 7PM-7AM, PLEASE PAGE [phone](COVR). Code Status: Full Code Barriers to Discharge: Acidemia, DREW - pending bed availability at [facility] Expected Discharge Date: 1-2 days Discharge Destination: [facility] Overview Patient is seen for evaluation and management of DREW. Subjective Patient seen and examined. More alert today and interactive. States she feels so-so and no specific complaints. Appears more hydrated on exam. Pending transfer to [facility] Physical Exam Visit Vitals BP 147/80 (BP Location: Left arm, Patient Position: Lying) Pulse 76 Temp 36.2 ???C (97.2 ???F) (Temporal) Resp 24 Intake/Output Summary (Last 24 hours) at 01/10/2025 0737 Last data filed at 01/09/2025 2309 Gross per 24 hour Intake 917.5 ml Output -- Net 917.5 ml Estimated body mass index is 19.91 kg/m??? as calculated from the following: Height as of this encounter: 1.575 m (5' 2.01 ). Weight as of this encounter: 49.4 kg (108 lb 14.4 oz). Constitutional: NAD, AO3 Eyes: EOMI, normal conjunctiva Mouth: Dry, desquamation CV: RRR, normal S1-S2, no murmurs Resp: CTA, no crackles or wheezing Abd: Soft, non-tender Extremities: Third spacing, 2+ distal pulses Skin : Warm, dry, tinting Neuro: AO3, L eye anisorcoria, ptosis Active Inpatient Problems Principal Problem: Acute kidney injury superimposed on CKD (CMS/HCC) Active Problems: Status post heart transplantation (CMS/[facility]) Gastroenteritis Pneumonia of left lower lobe due to infectious organism Acute cystitis without hematuria Assessment and Plan Acute kidney injury on CKD Non-AG Metabolic acidosis -Limited data in chart but appears CKD 3b -Nephrology consulted, appreciate their recs -renal US showing mild R hydronephrosis and nonobstructing L inferior pole calculus -Continue with bicarb -Daily BMP LLL CAP Leukocytosis Immunocompromised state ?UTI -f/u infectious workup -Continue CTX, azithro -Currently on tacrolimus, Cellcept -Reached out to ID due to acuity of case and sepsis R pleural effusion NICM s/p heart transplant 2005 -Cardiology has been consulted -BNP 563, pleural effusions on CXR -discussed with consulting services, everyone in agreement for transfer to [facility] in case this happens to be rejection clinical picture -[facility] has accepted, pending bed availability 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 -stroke alert morning of 01/09 -CT head negative -Neurology following; MRIs from yesterday showing numerous nonacute micro hemorrhages concerning for possibly amyloid etiology; otherwise no acute lesions or concern for stroke -Neurology contacted neurovascular for further recs, may require CTA for better visualization Gastroenteritis -Symptomatic treatment -Enteric panel pending -C diff negative Hypothyroidism -continue levothyroxine Hypertension -Continue home Coreg 25 Hyperlipidemia -Continue home statin Exocrine pancreatic insufficiency -on Creon Anxiety VTE Prophylaxis: Heparin subcutaneous Scheduled Meds aspirin, 81 mg, oral, q AM azithromycin, 500 mg, intravenous, q24h carvedilol, 25 mg, oral, BID with meals cefTRIAXone, 1 g, intravenous, q24h dorzolamide-timolol, 1 drop, Left Eye, BID escitalopram, 10 mg, oral, Daily famotidine, 20 mg, oral, Daily heparin (porcine), 5,000 Units, subcutaneous, q12h ROXANA levothyroxine, 112 mcg, oral, Daily mycophenolate, 500 mg, oral, BID pancrelipase (Yjx-Xfzr-Eeqc), 4 capsule, oral, TID with meals pramipexole, 0.5 mg, oral, Nightly simvastatin, 20 mg, oral, q PM [Held by provider] sodium bicarbonate, 650 mg, oral, TID tacrolimus, 1 mg, oral, BID BETA sodium bicarbonate 150 mEq in sterile water 1,000 mL infusion, 75 mL/hr, Last Rate: 75 mL/hr (01/10/25 0206) Pertinent Investigations Hematology: Results from last 7 days Lab Units 01/10/2541801/09/2572501/08/25 2155 WBC AUTO 10*3/uL 25.42* 17.00* 15.23* HEMOGLOBIN g/dL 9.7* 9.5* 9.7* HEMATOCRIT % 30.3* 30.9* 30.4* MCV fL 89.6 94.8 91.8 PLATELETS AUTO 10*3/uL 196 207 197 INR -- -- 1.44* Chemistry: Results from last 7 days Lab Units 01/10/2541801/09/25 0701/08/25 2155 SODIUM mmol/L 140 137 136 POTASSIUM mmol/L 4.3 4.8 5.1 CHLORIDE mmol/L 116* 119* 118* CO2 mmol/L 15* 10* 10* BUN mg/dL 85* 83* 83* CREATININE mg/dL 4.51* 4.40* 4.43* GLUCOSE mg/dL 77 105* 135* MAGNESIUM mg/dL -- -- 1.9 CALCIUM mg/dL 6.8* 7.4* 7.4* PHOSPHORUS mg/dL -- -- 4.9 Results from last 7 days Lab Units 01/09/25 0726 01/08/25 2155 AST U/L 20 20 ALT U/L 26 26 ALK PHOS U/L 160* 168* BILIRUBIN TOTAL mg/dL 0.3 0.3 BILIRUBIN DIRECT mg/dL (more content not included)... [facility] 01-09-2025 Note Speech Armature [employer] Speech/Language Pathology Clinical Swallow Assessment Patient Name: Sylvia Herrera : 1945 Today's Date: 01/09/2025 Recommendations 1) BOILER TESTING TECHNICIAN to follow 2) NPO. Short term alt nut as needed 3) frequent oral care for oral hydration, ice chips supervised or sips of water, as tolerated when alert and able 4) Speech Lang Cog-Communication assessment when able Referral: Difficulty with swallowing and cognitive changes. MRI pending result Per H and P: Sylvia Herrera is an 79 y.o. female who came from home with past medical history of nonischemic cardiomyopathy, s/p heart transplant in 2005 at [facility], CKD, 3B, anxiety, exocrine pancreatic sufficiency, hypothyroidism, hypertension and hyperlipidemia presented to [facility] as a direct transfer from [facility]. Patient initially presented there on 01/05/25 because of generalized weakness, nausea, vomiting and diarrhea over the last week. Patient also had decreased oral intake and had productive cough. Upon evaluation in the ER at [facility], patient was found to have left lower lobe pneumonia, UTI and significantly worsening kidney function. Patient's baseline creatinine is around 1.5 and it was up to 6. Patient was admitted to the hospital and started on Zosyn and linezolid for pneumonia. Initially after IV fluids patient's creatinine improved down to 4 but then it was worsening up to 4.6. Patient's BNP was also elevated and she had echo done which came back with normal ejection fraction. 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 Daly was contacted and agreed for the patient to be transferred to [facility] for nephrology consult. On my assessment, patient denies fevers or chills. No chest pain or shortness of breath. Her diarrhea improved but she still feels nauseous and has decreased oral intake but no vomiting. She complains of dysuria. Per report, she has good urine output. No other complaints or concerns. General Subjective: pt asleep after MRI but awoke. Intermittently falling back to sleep Chart Reviewed: Yes Family/Caregiver Present: No Baseline diet: Pt unable to state, resides in senior community Current diet NPO History of Intubation: No Vision: (L eye ptosis) Patient Positioning: Upright in bed Baseline Vocal Quality: Weak Orientation: self and , some basic command following noted Cognition Cognition Orientation Level: Oriented to person and able to state Baseline Assessment Vision: (L eye ptosis) Swallow Consistencies Assessed Thin Presentation: (pipette) Oral: Spillage Right, Spillage Left Pharyngeal: Within Functional Limits Consistencies Assessed Thin Presentation: (pipette) Oral: Spillage Right, Spillage Left Pharyngeal: Within Functional Limits Aspiration Risk Risk for Aspiration: Yes, AMS, age Oral Motor Examination Pt has Left eye ptosis which is new per medical record and at times had it closed. Eyes are not similar in look. Limited movement for oral motor exam, pt diffusely weak with lethargy and AMS. Limited command following. Bruising to tongue Summary: Pt unable to suck via straw requiring pipette for presentation for water. When placed on tongue pt was able to elicit a swallow with no overt s/s of asp. Pureed was not trialed as patient has lethargy, diffuse weakness, and encephalopathy/AMS this date. Further trials can be completed once patient has improvement in mentation Assessment/Plan BOILER TESTING TECHNICIAN Assessment BOILER TESTING TECHNICIAN Problems/Impairments: Swallowing impairments Speech Assessment: Unable to complete given patient lethargy. She was able to state name and only Prognosis: Fair Evaluation/Treatment Tolerance: Patient limited by fatigue Medical Staff Made Aware: Yes Plan Treatment/Interventions: Swallow function BOILER TESTING TECHNICIAN Plan: Skilled BOILER TESTING TECHNICIAN BOILER TESTING TECHNICIAN Frequency: 3 times per week BOILER TESTING TECHNICIAN Discharge Recommendations: Inpatient rehab facility placement, alf facility placement Diet Recommendations: NPO, Dominick Water Protocol BOILER TESTING TECHNICIAN - OK to Discharge: (No) Goals Multi-Disciplinary Problems (from Speech Therapy) Active Problems Problem: Swallowing Start Date: 01/09/25 Goal Start Date Expected End Date End Date LTG - Patient will tolerate the least restrictive diet consistency to allow for safe consumption of daily meals 01/09/25 02/12/25 -- Goal Start Date Expected End Date End Date STG - Patient will participate in clinical dysphagia evaluation 01/09/25 01/23/25 -- Written/Dictated by Addis Justice CCC-BOILER TESTING TECHNICIAN at 2:47 PM [facility] 01-09-2025 Note Hospital Medicine Daily Progress Note - 01/09/2025 8:05 AM; Room: [address] [place] [address] Admission: 01/08/2025 7:06 PM; Length of stay: 1 days THE HOSPITALIST TEAM PREFERS TO USE Force-[employer] CHAT FOR NON-URGENT COMMUNICATION 7AM-7PM. IF I DO NOT RESPOND WITHIN 20 MINUTES OR URGENT MATTERS, PLEASE CALL THROUGH THE BLEACH CHLORINATOR. FROM 7PM-7AM, PLEASE PAGE [phone](COVR). Code Status: Full Code Barriers to Discharge: Acidemia, DREW Expected Discharge Date: 2-3 days Discharge Destination: TBD Overview Patient is seen for evaluation and management of DREW. Subjective Patient seen and examined. Lethargic and states she just wants to sleep. L eye anisorcoria with droopiness for which stroke alert called this morning and CT negative. No chest pain, SOB, abd pain. Physical Exam Visit Vitals BP 118/70 Pulse 63 Temp 36.6 ???C (97.9 ???F) (Temporal) Resp 19 Intake/Output Summary (Last 24 hours) at 01/09/2025 0805 Last data filed at 01/09/2025 0322 Gross per 24 hour Intake 790.1 ml Output -- Net 790.1 ml Estimated body mass index is 19.16 kg/m??? as calculated from the following: Height as of this encounter: 1.575 m (5' 2.01 ). Weight as of this encounter: 47.5 kg (104 lb 12.8 oz). Constitutional: NAD, alert, lethargic Eyes: EOMI, normal conjunctiva Mouth: Dry, desquamation CV: RRR, normal S1-S2, no murmurs Resp: CTA, no crackles or wheezing Abd: Soft, non-tender Extremities: Third spacing, 2+ distal pulses Skin : Warm, dry, tinting Neuro: lethargic, L eye anisorcoria, ptosis Active Inpatient Problems Principal Problem: Acute kidney injury superimposed on CKD (CMS/HCC) Active Problems: Status post heart transplantation (CMS/HCC) Gastroenteritis Pneumonia of left lower lobe due to infectious organism Acute cystitis without hematuria Assessment and Plan Acute kidney injury on CKD Non-AG Metabolic acidosis -Limited data in chart but appears CKD 3b -Nephrology consulted, appreciate their recs -f/u renal ultrasound -Start bicarb for now -Daily BMP -gentle hydration with bicarb 150 in water LLL CAP Leukocytosis Immunocompromised state ?UTI -f/u infectious workup -Continue CTX, azithro -Currently on tacrolimus, Cellcept -If worsening then will reach out to ID R pleural effusion NICM s/p heart transplant 2005 -Cardiology has been consulted -BNP 563, pleural effusions on CXR -Will order TTE, unable to access imaging from [place]. Will cancel order if images can be sent over. -May need to consider diuresis if suspicion of cardiorenal syndrome but in setting of DREW will forego for now as she is on room air -Also considering transfer to [facility] for h/o heart transplant; she unfortunately has poor social determinants and stopped following with them routinely due to lack of transportation Lethargy L eye anisocoria and ptosis -stroke alert morning of 01/09 -CT head negative -Will consult Neurology and try to obtain MR head. Gadolinium limited by GFR <10 Gastroenteritis Symptomatic treatment Follow-up on C. 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 Anxiety VTE Prophylaxis: Heparin subcutaneous Scheduled Meds aspirin, 81 mg, oral, q AM carvedilol, 25 mg, oral, BID with meals cefTRIAXone, 1 g, intravenous, q24h dorzolamide-timolol, 1 drop, Left Eye, BID escitalopram, 10 mg, oral, Daily famotidine, 20 mg, oral, Daily heparin (porcine), 5,000 Units, subcutaneous, q12h ROXANA levothyroxine, 112 mcg, oral, Daily mycophenolate, 500 mg, oral, BID pancrelipase (Jhq-Lfqy-Xteh), 4 capsule, oral, TID with meals pramipexole, 0.5 mg, oral, Nightly simvastatin, 20 mg, oral, q PM sodium bicarbonate, 650 mg, oral, TID tacrolimus, 1 mg, oral, BID BETA Pertinent Investigations Hematology: Results from last 7 days Lab Units 01/09/2572501/08/25 2155 WBC AUTO 10*3/uL 17.00* 15.23* HEMOGLOBIN g/dL 9.5* 9.7* HEMATOCRIT % 30.9* 30.4* MCV fL 94.8 91.8 PLATELETS AUTO 10*3/uL 207 197 INR -- 1.44* Chemistry: Results from last 7 days Lab Units 01/08/25 2155 SODIUM mmol/L 136 POTASSIUM mmol/L 5.1 CHLORIDE mmol/L 118* CO2 mmol/L 10* BUN mg/dL 83* CREATININE mg/dL 4.43* GLUCOSE mg/dL 135* MAGNESIUM mg/dL 1.9 CALCIUM mg/dL 7.4* PHOSPHORUS mg/dL 4.9 Results from last 7 days Lab Units 01/08/25 2155 AST U/L 20 ALT U/L 26 ALK PHOS U/L 168* BILIRUBIN TOTAL mg/dL 0.3 BILIRUBIN DIRECT mg/dL 0.1 Results from last 7 days Lab Units 01/09/25 0711 POCT GLUCOSE mg/dL 101 Historical Values: (Includes values prior to this admission) No results found for: PREALBUMIN , TSH , T3FREE , FREET4 , CORTISOL , FEV1 , HWV7TOM , DLCO , RVSP , HDL , LDL No results found for: LLMMUIUK81 , IRON , TIBC , C3 , C4 , THELMA , CANCA , ASO , PSA , CEA , CA125 , CA199 , AFP , CA153 Imaging CT head wo IV contrast Narrative: Cl (more content not included)... [facility] 01-08-2025 Note Patient will be on R ocephin IV daily. [facility] 01-08-2025 Note Rocephin 1 g IV tigre chavez Will hold on starting azithromycin before we know patient's QT Mucinex as needed for cough Albuterol inhaler as needed for shortness of breath Follow-up on Legionella antigen in the urine [facility] 01-08-2025 Note Symptomatic treatmen t Follow-up on C. difficile testing [facility] 01-08-2025 Note Cardiology consult Per report, patient had echo done 1 day ago which showed normal EF Patient's BNP was elevated but her kidney function worsened significantly. [facility] 01-08-2025 Note Nephrology consult Renal ultrasound Will avoid and hold nephrotoxic medications [facility] 01-08-2025 Note Hospital Medicine History and Physical 01/08/2025 9:36 PM THE HOSPITALIST TEAM PREFERS TO USE [employer] FOR NON-URGENT COMMUNICATION 7AM-7PM. IF I DO NOT RESPOND WITHIN 20 MINUTES OR URGENT MATTERS, PLEASE CALL THROUGH THE BLEACH CHLORINATOR. FROM 7PM-7AM, PLEASE PAGE [phone](COVR). Chief Complaint No chief complaint on file. History of Present Illness Sylvia Herrera is an 79 y.o. female who came from home with past medical history of nonischemic cardiomyopathy, s/p heart transplant in 2005 at [facility], CKD, 3B, anxiety, exocrine pancreatic sufficiency, hypothyroidism, hypertension and hyperlipidemia presented to [facility] as a direct transfer from [facility]. Patient initially presented there on 01/05/25 because of generalized weakness, nausea, vomiting and diarrhea over the last week. Patient also had decreased oral intake and had productive cough. Upon evaluation in the ER at [facility], patient was found to have left lower lobe pneumonia, UTI and significantly worsening kidney function. Patient's baseline creatinine is around 1.5 and it was up to 6. Patient was admitted to the hospital and started on Zosyn and linezolid for pneumonia. Initially after IV fluids patient's creatinine improved down to 4 but then it was worsening up to 4.6. Patient's BNP was also elevated and she had echo done which came back with normal ejection fraction. 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 Daly was contacted and agreed for the patient to be transferred to [facility] for nephrology consult. On my assessment, patient denies fevers or chills. No chest pain or shortness of breath. Her diarrhea improved but she still feels nauseous and has decreased oral intake but no vomiting. She complains of dysuria. Per report, she has good urine output. No other complaints or concerns. Review of System and Physical Exam Temp: [36 ???C (96.8 ???F)] 36 ???C (96.8 ???F) Heart Rate: [61] 61 Resp: [17] 17 BP: (129)/(64) 129/64 Physical Exam Constitutional: General: She is not in acute distress. Appearance: Normal appearance. HENT: Head: Normocephalic and atraumatic. Eyes: Conjunctiva/sclera: Conjunctivae normal. Cardiovascular: Rate and Rhythm: Normal rate and regular rhythm. Heart sounds: No murmur heard. No friction rub. No gallop. Pulmonary: Effort: Pulmonary effort is normal. No respiratory distress. Breath sounds: Rhonchi present. No wheezing or rales. Comments: Diminished breath sounds bilaterally. Abdominal: General: Abdomen is flat. There is no distension. Tenderness: There is no abdominal tenderness. Musculoskeletal: General: No swelling or deformity. Right lower leg: No edema. Left lower leg: No edema. Skin: General: Skin is warm and dry. Findings: No rash. Neurological: General: No focal deficit present. Mental Status: She is alert and oriented to person, place, and time. Psychiatric: Mood and Affect: Mood normal. Behavior: Behavior normal. Thought Content: Thought content normal. Judgment: Judgment normal. Review of Systems as mentioned in HPI Assessment and Plan Assessment & Plan Acute kidney injury superimposed on CKD ([facility]) Nephrology consult Renal ultrasound Will avoid and hold nephrotoxic medications Status post heart transplantation ([facility]) Cardiology consult Per report, patient had echo done 1 day ago which showed normal EF Patient's BNP was elevated but her kidney function worsened significantly. Gastroenteritis Symptomatic treatment Follow-up on C. difficile testing Pneumonia of left lower lobe due to infectious organism Rocephin 1 g IV daily. Will hold on starting azithromycin before we know patient's QT Mucinex as needed for cough Albuterol inhaler as needed for shortness of breath Follow-up on Legionella antigen in the urine Acute cystitis without hematuria Patient will be on Rocephin IV daily. History of a nonischemic cardiomyopathy, s/p heart transplant in 2005 Hypothyroidism Hypertension Hyperlipidemia Exocrine pancreatic insufficiency, on Creon Anxiety Plan: Patient is admitted to stepdown telemetry bed. Fall precautions. Continuous pulse oximetry with supplemental oxygen if needed. Incentive spirometry. Patient's home medications are resumed Pepcid 20 mg p.o. daily for GI prophylaxis EPC cuffs VTE Prophylaxis: Heparin subcutaneous ----- Focus of this inpatient stay will remain on problems that need acute care setting for care. We will review available studies and will order additional labs, imaging and other studies as appropriate. As needed medicines are ordered as appropriate. VTE Prophylaxis will be ordered as appropriate. Please see above for management plan for individual hospital problems. Home medications are reviewed and will be continued as appropriate. Patient will be continued to be followed durin (more content not included)... [facility] 09-14-2024 Note MD Cardiology - [facility] Subjective Sylvia Herrera is a 78 [...] in 2007. She is followed by the [facility] cardiology service. She has had [...] on 11/19/16. Similar (more content not included)... [facility] 07-01-2024 Note MD Cardiology - [facility] Subjective Sylvia Herrera is a 78 y.o. year old female patient being seen for follow up [facility] for syncope. Says she's been having [...] in 2007. She is followed by the [facility] cardiology service. She has had [...] There is no (more content not included)... [facility] 04-08-2023 Hospital Discharge instructions Patient [...] improvement. Follow these instructions at home: Take [id number] and prescription medicines only as told by [...] provider. Document Revised: 05/29/2022 Document Reviewed: 05/29/2022 Note Patient Education 2022 [employer]. 04/08/2023 08:56:02 Nonspecific Chest Pain, Adult Nonspecific [...] Follow these instructions at home: Medicines Take [id number]-[id number] and prescription medicines only as told by [...] provider. Document Revised: 02/01/2022 Document Reviewed: 02/01/2022 Note Patient Education 2022 [employer]. Follow Up Care 04/07/2023 21:19:10 With:SCOT ROGERS Address: [address] [place] [address] [phone] Business (1) When:Within 3 Day(s) [facility] 04-07-2023 Evaluation + Plan note Extrac arianna from: Title:ED Note Author:Roby Richardchaya Low Date :04/07/23 Chest pain (R07.9: Chest laura [...] Troponin 9 Hr. XR Chest Single View [facility]09-01-2022 Miscellaneous Notes* Telephone Encounter - Mami Weems - 08/02/2022 1:41 PM EDT Patient had labs drawn 08/02/22, uploaded to scanned docs. [facility] Miscellaneous Notes* Telephone Encounter - Sho Izaguirre APRN.CNP - 07/05/2022 10:40 AM EDT 07/03/22 [...] has established care with another team. Sho Izaguirre APRN, CNP Pager: [phone] July 05, 2022 10:42 AM Post Heart Transplant Nurse Practitioner documented in this encounterC[facility]08-[facility]22 Miscellaneous Notes* Telephone Encounter - Mami Weems - 07/03/2022 12:59 PM EDT Patient had labs drawn 07/03/22, uploaded to scanned docs. documented in this encounterC[facility]06-07-2022 Miscellaneous Notes* Addendum Note - Loida [...] (L) 3.4 (L) * Telephone Encounter - Mami Weems - 05/08/2022 11:49 AM EDT Patient had labs drawn 05/07/22, uploaded to scanned docs. Mami Weems Administrative Can Technician documented in this encounterCleveland Clinic [facility]05-24-2022 Miscellaneous Notes* Telephone Encounter - Mami Weems - 04/24/2022 1:31 PM EDT Patient left message that she had labs drawn today. Mami Weems Administrative Can Technician Post Heart Transplant J3-4 documented in this encounterC[facility]05-11-2022 History of Present illness Narrative* Loida [...] reports she can no longer travel to [place]. Shedoes not have a ride, she has no family or friends to lean on. She has made an appt with a local Form Worker. She will ask him if there are any transplant doctors or centers near her and potentiallyneed to transfer her care. She will keep us updated. Loida Mathias APRN.CNP April 12, 2022 2:25 PM documented in this encounterCleveland Clinic [facility]12-14-2017 History of Past illness Narrative* Problem [...] encounter (statuses as of 04/05/2022) [facility] History of Past illness Narrative* Problem [...] encounter (statuses as of 04/06/2022) [facility] History of Past illness Narrative* Problem [...] encounter (statuses as of 04/12/2022) [facility] History of Past illness Narrative* Problem [...] encounter (statuses as of 04/24/2022) [facility] History of Past illness Narrative* Problem [...] encounter (statuses as of 05/08/2022) [facility] History of Past illness Narrative* Problem [...] encounter (statuses as of 07/03/2022) [facility] History of Past illness Narrative* Problem [...] encounter (statuses as of 07/05/2022) [facility] History of Past illness Narrative* Problem [...] encounter (statuses as of 08/02/2022) [facility] History of Past illness Narrative* Problem [...] of this encounter (statuses as of 09/11/2022) [facility] + Plan note Future Appointments Appointment Date:08/01/2022 01:50:00 PM Scheduled Provider: Location:[facility] Appointment Type:Surgery FT Diagnostic Tests Pending * CMV Antibody IgM 07/16/22 Future Scheduled Tests Laboratory* Fecal WBC Lactoferrin 07/12/22 * Giardia lamblia, Direct Detection EIA 07/12/22 * O & P Exam, Routine 07/12/22 * Clostridium difficile by PCR 07/12/22 * Enteric Panel by PCR 07[facility]12/22 [facility] Heart transplanted (HCC) Heart replaced by transplant [facility] encounter [facility] [place] [facility]* Diagnosis Heart replaced by transplant (HCC)- Primary Heart replaced by transplant documented [facility] encounter [facility] [place] [facility]* Diagnosis Heart replaced by transplant (HCC)- Primary Heart replaced by transplant Heart transplanted (HCC) Heart replaced by transplant [facility]* Diagnosis Heart transplanted (HCC) Heart replaced by transplant [facility] [place] [facility]* Diagnosis Heart transplanted (HCC) Heart replaced by transplant documented in this encounter [facility] noteNo assessment information availablePeoples Hospital Ctr Work Phone: Evaluation note* Diagnosis Neovascular glaucoma of left eye, 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 Pseudophakia Lens replaced by other means documented in this encounter [facility] note* Diagnosis Neovascular glaucoma of left eye, severe stage- Primary Pseudophakia Lens replaced by other means [facility] [place] [facility]* Diagnosis Neovascular glaucoma of left eye, severe stage- Primary Hypertensive retinopathy of right eye Hypertensive retinopathy Pseudophakia of both eyes Lens replaced by other means 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, unspecified whether fpc insulin use ([facility]) Posterior vitreous detachment of both eyes Vitreous degeneration documented in this encounter [facility] note* Diagnosis Heart replaced by transplant (HCC)- Primary Heart replaced by transplant documented [facility] this encounter [facility] Narrative No data available for this section [facility] Discharge instructions No data available for this section [facility] No data available for this section [facility] Advance Directives No Advanced Directives Records FoundDocuments on File Type Date Recorded 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 Advance Directive(s) 11/14/2017 5:44 AM Advance Directive(s) 01/02/2012 12:00 AM Advance Directive(s) 01/17/2007 12:00 AM Documents on File Type Date Recorded 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 Advance Directive(s) 01/02/2012 Advance Directive(s) 01/17/2007 Summary Purpose Family History No Family History Records FoundNo Family History Records Found No data available for this section No Family History Records FoundNo Family History [...] any alcohol or drug abuse patient.[facility] HospitalIn the event this information is protected by the Federal Confidentiality of Alcohol and Drug Abuse Patient Records regulations: The Federal rules restrict any use of the information to criminally investigate or prosecute any alcohol or drug abuse patient.[facility] HospitalIn the event this information is protected by the Federal Confidentiality of Alcohol and Drug Abuse Patient Records regulations: The Federal rules restrict any use of the information to criminally investigate or prosecute any alcohol or drug abuse patient.[facility] Hospital[facility] the event this information is protected by the Federal Confidentiality of Alcohol and Drug Abuse Patient Records regulations: The Federal rules restrict any use of the information to criminally investigate or prosecute any alcohol or drug abuse patient.[facility] HospitalIn the event this information is protected by the Federal Confidentiality of Alcohol and Drug Abuse Patient Records regulations: The Federal rules restrict any use of the information to criminally investigate or prosecute any alcohol or drug abuse patient.[facility] HospitalIn the event this information is protected by the Federal Confidentiality of Alcohol and Drug Abuse Patient Records regulations: The Federal rules restrict any use of the information to criminally investigate or prosecute any alcohol or drug abuse patient.[facility] HospitalIn the event this information is protected by the Federal Confidentiality of Alcohol and Drug Abuse Patient Records regulations: The Federal rules restrict any use of the information to criminally investigate or prosecute any alcohol or drug abuse patient.[facility] HospitalIn the event this information is protected by the Federal Confidentiality of Alcohol and Drug Abuse Patient Records regulations: The Federal rules restrict any use of the information to criminally investigate or prosecute any alcohol or drug abuse patient.[facility] HospitalIn the event this information is protected by the Federal Confidentiality of Alcohol and Drug Abuse Patient Records regulations: The Federal rules restrict any use of the information to criminally investigate or prosecute any alcohol or drug abuse patient.[facility] HospitalIn the event this information is protected by the Federal Confidentiality of Alcohol and Drug Abuse Patient Records regulations: The Federal rules restrict any use of the information to criminally investigate or prosecute any alcohol or drug abuse patient.[facility] HospitalIn the event this information is protected by the Federal Confidentiality of Alcohol and Drug Abuse Patient Records regulations: The Federal rules restrict any use of the information to criminally investigate or prosecute any alcohol or drug abuse patient.[facility] HospitalIn the event this information is protected by the Federal Confidentiality of Alcohol and Drug Abuse Patient Records regulations: The Federal rules restrict any use of the information to criminally investigate or prosecute any alcohol or drug abuse patient.[facility] HospitalIn the event this information is protected by the Federal Confidentiality of Alcohol and Drug Abuse Patient Records regulations: The Federal rules restrict any use of the information to criminally investigate or prosecute any alcohol or drug abuse patient.[facility] HospitalIn the event this information is protected by the Federal Confidentiality of Alcohol and Drug Abuse Patient Records regulations: The Federal rules restrict any use of the information to criminally investigate or prosecute any alcohol or drug abuse patient.[facility] HospitalIn the event this information is protected by the Federal Confidentiality of Alcohol and Drug Abuse Patient Records regulations: The Federal rules restrict any use of the information to criminally investigate or prosecute any alcohol or drug abuse patient.[facility] HospitalIn the event this information is protected by the Federal Confidentiality of Alcohol and Drug Abuse Patient Records regulations: The Federal rules restrict any use of the information to criminally investigate or prosecute any alcohol or drug abuse patient.[facility] HospitalIn the event this information is protected by the Federal Confidentiality of Alcohol and Drug Abuse Patient Records regulations: The Federal rules restrict any use of the information to criminally investigate or prosecute any alcohol or drug abuse patient.[facility] HospitalIn the event this information is protected by the Federal Confidentiality of Alcohol and Drug Abuse Patient Records regulations: The Federal rules restrict any use of the information to criminally investigate or prosecute any alcohol or drug abuse patient.[facility] Reason for Visit (unrecogniz ed section and content) Reason Comments Neovascular glaucoma of left eye Specialty Diagnoses / Procedures Referred By Ronald yoo Referred To Contact HOSP INPATIENT Diagnoses DREW (acute kidney injury) (HCC) DREW Procedures [facility] [address] [place] [address] Phone: tel: Referral ID Status Reason Start Date Expiration Date Visits Re quested Visits Authorized [id number] 1 Reason Comments Rx Refills Reason Comments Heart Transplant Follow Up Labs Reason Comments Heart Transplant Follow Up Reason Comments Heart Transplant Follow Up labs Reason Comments Heart Transplant Follow Up Lab Meeting Reason Comments Refill Request Reason Comments Neovascular Glaucoma Follow Up Reason Comments Future Appointment [place] Reason Comments Medication Problem Attempted to call pt 01/26 x2 after hospital discharge to clarify Tacrolimus dosing of 0.5mg BID and Cellcept dosing of 500mg BID, to schedule f/u in [place] per consult note. Patient did not answer, attempted to call friend without answer. Got in touch with daughter Ana who lives in [place]. She will relay these dosing clarifications to her mother today. States they are attempting to move her to low income housing closer to [place] soon. Reason Comments Appointment With Dr Vu [facility] (unrecognized sec tion and content) Local Delivery Driver Relationship Specialty Start Date End Date Tao Rooney MD [address] [place] [address] PCP - General Family Practice 05/13/19 Local Delivery Driver Relationship Specialty Start Date End Date Tao Rooney MD [address] [place] [address] PCP - General Family Practice 05/13/19 Local Delivery Driver Relationship Specialty Start Date End Date Tao Rooney MD [address] [place] [address] PCP - General Family Practice 05/13/19 Local Delivery Driver Relationship Specialty Start Date End Date Tao Rooney MD [address] [place] [address] PCP - General Family Practice 05/13/19 Local Delivery Driver Relationship Specialty Start Date End Date Tao Rooney MD [address] [place] [address] PCP - General Family Practice 05/13/19 Local Delivery Driver Relationship Specialty Start Date End Date Tao Rooney MD [address] [place] [address] PCP - General Family Medicine 05/13/19 Team Status: Inactive Member Role Status Dates NON STAFF Attending Provider Active Start: 2023 End: June 18, 2024 Local Delivery Driver Relationship Specialty Start Date End Date Tao Rooney MD PCP - General Family Medicine 05/13/19 Local Delivery Driver Relationship Specialty Start Date End Date Tao Rooney MD PCP - General Family Medicine 05/13/19 Local Delivery Driver Relationship Specialty Start Date End Date Tao Rooney MD PCP - General Family Medicine 05/13/19 Sang Guerra MD [address] [place] [address] Referring Internal Medicine 01/18/25 Local Delivery Driver Relationship Specialty Start Date End Date Tao Rooney MD PCP - General Family Medicine 05/13/19 Sang Guerra MD [address] [place] [address] Referring Internal Medicine 01/18/25 Local Delivery Driver Relationship Specialty Start Date End Date Tao Rooney MD PCP - General Family Medicine 05/13/19 Sang Guerra MD [address] [place] [address] Referring Internal Medicine 01/18/25 Local Delivery Driver Relationship Specialty Start Date End Date Tao Rooney MD PCP - General Family Medicine 05/13/19 Sang Guerra MD [address] [place] [address] Referring Internal Medicine 01/18/25 INFORMATION SOURCE (unrecogn ized section and content) DATE CREATED AUTHOR 03/09/2023 [facility] DATE CREATED AUTHOR AUTHOR'S ORGANIZ ATION 07/12/2024 [facility] DATE CREATED AUTHOR AUTHOR'S ORGANIZ ATION 10/11/2024 [facility] DATE CREATED AUTHOR AUTHOR'S ORGANIZ ATION 02/08/2025 [facility] DATE CREATED AUTHOR AUTHOR'S ORGANIZ ATION 02/27/2025 [facility] Goals (unrecognized section and content) [...] BE BASED ON THE PRIMARY CLINICAL RECORDS. [facility]. provides no warranty or guarantee of the accuracy or completeness of information in this document.
--- NOTE | 2025-03-03 10:12 | ECG_ITS ---
[facility] Test Date: 2025-03-03 Pat Name: SYLVIA HANNA Department: Room: - Gender: Female Food Service Director: : 1945 Requested By: [id number] Order Number: [id number] Reading MD: ANISHA DINH M.D. Measurements Intervals [place] Rate: 68 P: 19 MN: 184 QRS: 100 QRSD: 98 T: 60 QT: 428 QTc: 445 Interpretive Statements 1100 Sinus rhythm 2440 Incomplete right bundle branch block 5120 Possible right ventricular hypertrophy 9130 borderline ECG Compared to ECG 01/04/2025 21:29:01 No significant change Electronically Signed On 03-03-2025 17:29:29 EDT by ANISHA DINH M.D.
[2025-03-03 10:23] LABS: Basophils Percent Auto 0.1 % (0.2-2.0); Eosinophils Absolute Auto 0.2 10^3/uL (0.0-0.7); Eosinophils Percent Auto 2.4 % (0.9-7.0); Hematocrit 29.2 % (36.0-48.0); Hemoglobin 9.3 g/dL (12.0-16.0); Immature Granulocytes Abs Auto 0.02 10^3/uL (0.00-0.03); Immature Granulocytes Pct Auto 0.3 % (0.0-0.5); Lymphocytes Absolute Auto 0.9 10^3/uL (1.2-3.8); Lymphocytes Percent Auto 10.8 % (20.5-60.0); Mean Corpuscular HGB Conc 31.8 g/dL (29.9-35.2); Mean Corpuscular Hemoglobin 30.3 pg (26.7-34.0); Mean Corpuscular Volume 95.1 fL (81.0-99.0); Mean Platelet Volume 9.9 fL (9.5-13.5); Monocytes Absolute Auto 0.6 10^3/uL (0.3-0.8); Neutrophils Absolute Auto 6.4 10^3/uL (1.4-6.5); Neutrophils Percent Auto 79.4 % (43.0-75.0); Platelet Count 141 10^3/uL (150-450); Red Blood Count 3.07 10^6/uL (4.20-5.40); Red Cell Distribution Width 13.5 % (11.0-15.0)
[2025-03-03 10:42] LABS: Alanine Aminotransferase 22 U/L (14-59); Albumin Level 3.4 g/dL (3.4-5.0); Alkaline Phosphatase 328 U/L (46-116); Aspartate Amino Transferase 29 U/L (15-37); BUN Creatinine Ratio 21.1; Bilirubin Total 0.5 mg/dL (0.2-1.0); Calcium 7.3 mg/dL (8.5-10.1); Carbon Dioxide 26.5 mmol/L (21.0-32.0); Chloride 100 mmol/L (98-107); Estimated GFR (African America 18 (>=60 mL/min/1.73m^2); Estimated GFR (Non-African Ame 15 (>=60 mL/min/1.73m^2); Globulin 3.5 g/dL; Glucose 138 mg/dL (74-106); Potassium 4.5 mmol/L (3.5-5.1); Sodium 137 mmol/L (136-145); Total Protein 6.9 g/dL (6.4-8.2)
[2025-03-03 11:33] VITALS: BP 151/75; PULSE 64; O2SAT 97
--- NOTE | 2025-03-03 12:04 | ED_ITS ---
HPI HPI - General Adult General Chief complaint: Recheck/Abnormal Lab/Rx Stated complaint: ABNORMAL LAB Time Seen by Provider: 03/03/25 10:09 Source: patient Mode of arrival: walk-in History of Present Illness HPI narrative: The patient is 79 years old female has been managing for the last month acute kidney injury, was evaluated by her court magistrate few days ago when he had a blood workup done and apparently because of elevated BUN he sent her to the ER to be evaluated, the patient has been feeling much better she has been at home almost 2 weeks ago when she was discharged from [facility] for acute kid viraj injury management The patient has been drinking enough water and is drinking a lot of boost to gain weight Patient has denied any nausea vomiting or any other concerns she also denies any use of antibiotics she stopped using vancomycin a week ago Related Data Home Medications ?Medication ?Instructions ?Recorded ?Confirmed aspirin 81 mg tablet,delayed 81 mg PO DAILY 06/06/23 03/03/25 release omega-3 fatty acids-fish oil 360 1 cap PO DAILY 06/06/23 03/03/25 mg-1,200 mg capsule (Fish Oil) pramipexole 0.5 mg tablet 0.5 mg PO DAILY 06/06/23 03/03/25 simvastatin 20 mg tablet 20 mg PO .QHS 06/06/23 03/03/25 levothyroxine 112 mcg tablet 112 mcg PO QDAY 06/07/23 03/03/25 mycophenolate mofetil 250 mg 500 mg PO BID 12/31/23 03/03/25 capsule sxyxpn-[id number]-yofyahv See Rx Instructions PO TID 06/18/24 03/03/25 36,000-114,000-180,000 unit capsule,delay rel (Creon) carvedilol 25 mg tablet 25 mg PO BID 01/05/25 03/03/25 dorzolamide 22.3 mg-timolol 6.8 1 drp ophthalmic (eye) BID 01/05/25 03/03/25 mg/mL eye drops furosemide 40 mg tablet 40 mg PO .QOD 01/05/25 03/03/25 tacrolimus 1 mg capsule, 1 mg PO BID 01/05/25 03/03/25 immediate-release Previous Rx's ?Medication ?Instructions ?Recorded magnesium oxide 400 mg (241.3 mg 400 mg PO BID #60 tabs 01/01/24 magnesium) tablet Allergies Allergy/AdvReac Type Severity Reaction Status Date / Time promethazine (From Phenergan) AdvReac Severe Confusion Verified 01/04/25 21:27 ciprofloxacin (From Cipro) AdvReac Mild HIVES Verified 01/04/25 21:27 Opioid HPI Opioid Management Most Recent Opioid Data: Last Pain Scale 0 01/07/25 12:43 01/07/25 Last Pain Intensity 2 12/31/23 13:45 12/31/23 Last ORT Total Score 0 01/05/25 01:30 01/05/25 Last ORT Risk Category Low Risk 01/05/25 01:30 01/05/25 Review of Systems ROS Status of ROS 10 or more systems reviewed and unremark able except as noted in history and below [facility] Medical History (Updated 03/03/25 @ 11:41 by Chiquita Lester MD) Hypocalcemia ?E83.51 - Hypocalcemia (ICD-10) LLL pneumonia ?J18.9 - Pneumonia, unspecified organism (ICD-10) Acute kidney injury (nontraumatic) ?N17.9 - Acute kidney failure, unspecified (ICD-10) Gastroenteritis ?K52.9 - Noninfective gastroenteritis and colitis, unspecified (ICD-10) Generalized weakness ?R53.1 - Weakness (ICD-10) Acute UTI ?N39.0 - Urinary tract infection, site not specified (ICD-10) Head injury ?S09.90XA - Unspecified injury of head, initial encounter (ICD-10) Syncope ?R55 - Syncope and collapse (ICD-10) Depression ?F32.A - Depression, unspecified (ICD-10) Syncope ?R55 - Syncope and collapse (ICD-10) Acute kidney injury ?N17.9 - Acute kidney failure, unspecified (ICD-10) Gastroenteritis ?K52.9 - Noninfective gastroenteritis and colitis, unspecified (ICD-10) Heart transplant recipient ?Z94.1 - Heart transplant status (ICD-10) Heart transplant recipient ?Z94.1 - Heart transplant status (ICD-10) Surgical History (Updated 06/18/24 @ 00:55 by Toña Márquez RN) History of heart transplant ?Z94.1 - Heart transplant status (ICD-10) History of cholecystectomy ?Z90.49 - Acquired absence of other specified parts of digestive tract (ICD- 10) History of ureteroscopy ?Z98.890 - Other specified postprocedural states (ICD-10) Social History (Updated 06/18/24 @ 00:33 by Toña Márquez RN) Within the past year, how often did you have a drink containing alcohol: never Score interpretation: A score less than 3 is consistent with normal alcohol consumption. Smoking status: Never smoker Non-prescribed substance use: denies use Highest level of school completed/degree received: high school graduate Are you now , , , , never or living with a partner: In a typical week, how many times do you talk on the telephone with family, friends, or neighbors: 3 or more times per week How often do you get together with friends or relatives: 3 or more times per week How often do you attend gnosticist or zoroastrian services: 4 or more times per year Do you belong to any clubs or organizations such as gnosticist groups unions, [employer]ed[employer] or athletic groups, or school groups: no Total score: 3 Score interpretation: A score of greater than or equal to 2 indicates the low est level of social isolation. Little interest or pleasure in doing things: not at all Feeling down, depressed, or hopeless: not at all Feel stressed/tense/nervous/anxious/difficulty sleeping: not at all Life stressors: recent of family or friend Do you think of yourself as: straight/heterosexual Gender Identity: female Exam Narrative Exam Narrative: Nurses notes and vital signs reviewed and patient is not hypoxic. General: Well-appearing and in no apparent distress. Skin: Warm, dry, no pallor noted. No rash. Head: Normocephalic, atraumatic. Neck: Supple, non-tender. Cardiovascular: Regular Rate and Rhythm without murmur, gallop or rub. Respiratory: No accessory muscle use or respiratory distress. Lungs are clear to auscultation, no wheezing, rales or rhonchi Chest Wall: no tenderness Back: No midline thoracic or lumbar vertebral tenderness. No CVA tenderness Musculoskeletal: normal ROM, no calf or popliteal tenderness, no lower extremity edema/swelling GI: Abdomen is soft, non-distended. Normal bowel sounds. No masses appreciated. No tenderness to palpation. No rebound, guarding, or rigidity noted. Constitutional Vital Signs, click to edit/add: Last Vital Signs Temp 97.9 F 03/03/25 09:57 Pulse 64 03/03/25 11:33 Resp 18 03/03/25 11:33 BP 151/75 H 03/03/25 11:33 Pulse Ox 97 03/03/25 11:33 O2 Del Method Room Air 03/03/25 09:57 Course Vital Signs Vital signs: Vital Signs Temperature 97.9 F 03/03/25 09:57 Pulse Rate 74 03/03/25 09:57 Respiratory Rate 18 03/03/25 09:57 Blood Pressure 151/70 H 03/03/25 09:57 Pulse Oximetry 97 03/03/25 09:57 Oxygen Delivery Method Room Air 03/03/25 09:57 Temperature 97.9 F 03/03/25 09:57 Pulse Rate 64 03/03/25 11:33 Respiratory Rate 18 03/03/25 11:33 Blood Pressure 151/75 H 03/03/25 11:33 Pulse Oximetry 97 03/03/25 11:33 Oxygen Delivery Method Room Air 03/03/25 09:57 Medical Decision Making MDM Narrative Medical decision making narrative: The patient blood workup showed BUN of 65 today and creatinine 3.0 The patient blood workup shows improvement of her kidney function The patient also was sent to be evaluated and possibly admit that she does not want to be admitted in the hospital I did explain to her that drinking boost usually can increase her BUN/creatinine as well due to the high protein intake and she will stop using boost and continue taking natural protein and foods supplement Patient to continue hydration and to follow-up with Dr. Davis for blood workup redraw on Saturday which is 2 days from now I did speak with Dr. Flores discussed the case and he will follow-up with her after the blood test on Saturday Lab Data Labs: Lab Results 03/03/25 Range/Units 10:10 WBC 8.0 (4.0-11.0) 10^3/uL RBC 3.07 L (4.20-5.40) 10^6/uL Hgb 9.3 L (12.0-16.0) g/dL Hct 29.2 L (36.0-48.0) % MCV 95.1 (81.0-99.0) fL MCH 30.3 (26.7-34.0) pg MCHC 31.8 (29.9-35.2) g/dL RDW 13.5 (11.0-15.0) % Plt Count 141 L (150-450) 10^3/uL MPV 9.9 (9.5-13.5) fL Neut % (Auto) 79.4 H (43.0-75.0) % Lymph % (Auto) 10.8 L (20.5-60.0) % [place] % (Auto) 7.0 (1.7-12.0) % Eos % (Auto) 2.4 (0.9-7.0) % Baso % (Auto) 0.1 L (0.2-2.0) % Neut # (Auto) 6.4 (1.4-6.5) 10^3/uL Lymph # (Auto) 0.9 L (1.2-3.8) 10^3/uL [place] # (Auto) 0.6 (0.3-0.8) 10^3/uL Eos # (Auto) 0.2 (0.0-0.7) 10^3/uL Baso # (Auto) 0.0 (0.0-0.1) 10^3/uL Abs Immat Gran (auto) 0.02 (0.00-0.03) 10^3/uL Imm/Tot Granulo (auto) 0.3 (0.0-0.5) % Sodium 137 (136-145) mmol/L Potassium 4.5 (3.5-5.1) mmol/L Chloride 100 (98-107) mmol/L Carbon Dioxide 26.5 (21.0-32.0) mmol/L Anion Gap 15.0 BUN 65.0 H (7.0-18.0) mg/dL Creatinine 3.08 H (0.55-1.02) mg/dL Est GFR ( Amer) 18 L (>=60 mL/min/1.73m^2) Est GFR (Non-Af Amer) 15 L (>=60 mL/min/1.73m^2) BUN/Creatinine Ratio 21.1 Glucose 138 H (74-106) mg/dL Calcium 7.3 L (8.5-10.1) mg/dL Total Bilirubin 0.5 (0.2-1.0) mg/dL AST 29 (15-37) U/L ALT 22 (14-59) U/L Alkaline Phosphatase 328 H (46-116) U/L Total Protein 6.9 (6.4-8.2) g/dL Albumin 3.4 (3.4-5.0) g/dL Globulin 3.5 g/dL Albumin/Globulin Ratio 1.0 Discharge Plan Discharge Chief Complaint: Recheck/Abnormal Lab/Rx Clinical Impression: DREW (acute kidney injury) Patient Disposition: Home, Self-Care Time of Disposition Decision: 11:40 Condition: Good Prescriptions / Home Meds: No Action levothyroxine 112 mcg tablet 112 mcg PO QDAY carvedilol 25 mg tablet 25 mg PO BID dorzolamide-timolol 22.3-6.8 mg/mL drops 1 drp OPHTHALMIC (EYE) BID Rx Instructions: LEFT EYE furosemide 40 mg tablet 40 mg PO .QOD tacrolimus 1 mg capsule 1 mg PO BID pramipexole 0.5 mg tablet 0.5 mg PO DAILY aspirin 81 mg tablet,delayed release (DR/EC) 81 mg PO DAILY simvastatin 20 mg tablet 20 mg PO .QHS omega-3 fatty acids-fish oil [Fish Oil] 360-1,200 mg capsule 1 cap PO DAILY mycophenolate mofetil 250 mg capsule 500 mg PO BID magnesium oxide 400 mg (241.3 mg magnesium) Tablet 400 mg PO BID Qty: 60 11RF Creon 36,000-114,000- 180,000 unit capsule,delayed release(DR/EC) See Rx Instructions PO TID Patient Comments: Take 3 capsules by mouth three times a day Rx Instructions: 3 capsules orally three times a day; administer with meals and/or snacks Print Language: Irish Instructions: Acute Kidney Injury (DC) Additional Instructions: please follow up with Dr Davis after blood test saturday03/05/2025 Referrals: Vijay Davis MD [Primary Care Provider] - 1 week Discharge Date/Time: 03/03/25 11:49
== END 2025-03-03 11:49 | disposition home or self-care (01) ==
PROVIDERS: Emergency Provider Emergency Medicine; PCP Family Medicine
DX: N17.9 Acute kidney failure, unspecified (principal); Z94.1 Heart transplant status; Z90.49 Acquired absence of other specified parts of digestive tract; Z63.4 Disappearance and death of family member
CPT/HCPCS: 36415; 80053; 85025; 93005; 99284

== ENCOUNTER 2025-03-05 09:12 | Outpatient (OUT) | payer MEDICARE, MEDICAID, SELFPAY ==
[2025-03-05 10:24] LABS: Anion Gap 18.8; BUN Creatinine Ratio 19.5; Calcium 7.7 mg/dL (8.5-10.1); Carbon Dioxide 22.7 mmol/L (21.0-32.0); Chloride 104 mmol/L (98-107); Estimated GFR (African America 18 (>=60 mL/min/1.73m^2); Estimated GFR (Non-African Ame 15 (>=60 mL/min/1.73m^2); Glucose 123 mg/dL (74-106); Potassium 4.5 mmol/L (3.5-5.1); Sodium 141 mmol/L (136-145)
== END 2025-03-05 09:13 | disposition home or self-care (01) ==
PROVIDERS: PCP Family Medicine; Visit Provider Emergency Medicine
DX: R79.9 Abnormal finding of blood chemistry, unspecified (principal)
CPT/HCPCS: 36415; 80048

== ENCOUNTER 2025-03-15 11:40 | Outpatient (OUT) | payer MEDICARE, MEDICAID, SELFPAY ==
[2025-03-15 12:55] LABS: Alanine Aminotransferase 18 U/L (14-59); Albumin Globulin Ratio 0.9; Albumin Level 3.2 g/dL (3.4-5.0); Alkaline Phosphatase 331 U/L (46-116); Anion Gap 15.9; Aspartate Amino Transferase 25 U/L (15-37); BUN Creatinine Ratio 21.9; Bilirubin Total 0.4 mg/dL (0.2-1.0); Calcium 7.9 mg/dL (8.5-10.1); Chloride 102 mmol/L (98-107); Estimated GFR (African America 20 (>=60 mL/min/1.73m^2); Estimated GFR (Non-African Ame 16 (>=60 mL/min/1.73m^2); Globulin 3.4 g/dL; Glucose 120 mg/dL (74-106); Magnesium 1.4 mg/dL (1.8-2.4); Phosphorus 3.6 mg/dL (2.6-4.7); Potassium 4.9 mmol/L (3.5-5.1); Sodium 133 mmol/L (136-145); Total Protein 6.6 g/dL (6.4-8.2)
== END 2025-03-15 11:41 | disposition home or self-care (01) ==
LOC: LAB 11:45
PROVIDERS: PCP Family Medicine; Visit Provider Family Medicine
DX: N18.31 Chronic kidney disease, stage 3a (principal)
CPT/HCPCS: 36415; 80053; 83735; 84100

== ENCOUNTER 2025-05-25 08:08 | Outpatient (OUT) | payer MEDICARE, MEDICAID, SELFPAY ==
--- OUTSIDE RECORDS SUMMARY | 2025-03-09 06:00 | XMS_ITS ---
Author Organization [facility] in [place] Address [address] [place] [address] Care Team Providers Care Gas Controller Name Role Phone Duyen Neal Primary Care Provider [phone] REASON FOR VISIT 1 mo f/u Encounters Encounter Location Date Provider Diagnosis [facility] [address] [place] [address] 03/09/2025 Duyen Neal Plan Of Treatment No Information Progress Notes * Alia HERRERA KDOB:1945 (79 yo F)Acc No.[id number]:03/09/2025 UNLOCKED PROGRESS NOTE Progress Note Patient: Alia CUNNINGHAM Provider: Stephanie Neal CNP (TTC) :1945 A ge:79 Y S ex:Female Date:03/09/2025 Address:[address] [place] [address], [address] [place], [place] [id number] Subjective: * Chief Complaints: * 1 . 1 mo f/u. * Medical History: Objective: * Vitals: Assessment: Plan: * Treatment: * * Electronic signature of Karen Aguirre NP, RETURNED GOODS [email or web address] on 05/25/2025 at 08:17 AM EDT Sign off status: Pending Visit Status: N /S N/C (No Show/No Charge) * Provider: Stephanie Neal CNP (TTC) Date: 03/09/2025 Generated for Printi ng/Faxing/eTransmitting on: 0 05/25/2025 08:17 AM EDT
--- OUTSIDE RECORDS SUMMARY | 2025-03-15 16:36 | XMS_ITS ---
Author Organization [facility] in [place] Address [address] [place] [address] Care Team Providers Care Mycologist Name Role Phone Val Duyen Primary Care Provider [phone] King Davis Unavailable [phone] REASON FOR VISIT Lab Results Encounters Encounter Location Date Provider Diagnosis [facility] [address] [facility] [place] [address] 03/15/2025 King Davis Plan Of Treatment No Information Progress Notes * Alia HERRERA KDOB:1945 (79 yo F)Acc No.[id number]:03/15/2025 Patient: Stephanie JARADDeedeeAlia :1945 A ge:79 Y S ex:Female Address:[address] [place] [address], [address], [place] [address] * true * Date: Generated for Vijayi ng/Fahetalg/eTransmitting on: 0 05/25/2025 08:20 AM EDT
--- OUTSIDE RECORDS SUMMARY | 2025-04-30 10:22 | XMS_ITS ---
Author Organization [facility] in [place] Address [address] [place] [address] Care Team Providers Care Journal Clerk Name Role Phone Duyen Neal Primary Care Provider REASON FOR VISIT rf creon Medications Medication SIG (Take, Route, Fr equency, Duration) Notes Start Date End Date Status Creon [id number] UNIT take 3 capsules O rally three times daily for 30 days Active Encounters Encounter Location Date Provider Diagnosis [facility] [address] [place] [address] 04/30/2025 Duyen Neal Diarrhea R19.7 Assessments Encounter Date Diagnosis (ICD Code) Assessment Notes Treatment Notes Treatment Clinical Notes Section Notes 04/30/2025 Diarrhea (ICD-10 - R19.7) Plan Of Treatment Medication Medication Name Sig Start Date Stop Date Notes Creon [address]915-[address] UNIT take 3 capsules O rally three times daily for 30 days Progress Notes * Alia HERRERA KDOB:1945 (79 yo F)Acc No.[id number]:04/30/2025 Patient: Alia CUNNINGHAM :1945 A ge:79 Y S ex:Female Address:[address] [place] [address], [address] [place] [address] * Refills Refill Creon Capsule Delayed Release Particles, [address] UNIT, Orally, 270, take 3 capsules, three times daily, 30 days, Refills=11 * true * Date: Generated for Lynne mosqueda/Hortensia/eTransmitting on: 0 05/25/2025 08:19 AM EDT
--- OUTSIDE RECORDS SUMMARY | 2025-05-25 08:16 | XMS_ITS | Encounter Summary ---
Author Organization [facility] Address [address] [place] [address] Care Team Providers Care Curbstone Setter Name Role Phone Vijay Davis MD Primary Care Provider [phone] Sang Guerra MD Unavailable [phone] Source Comments In the event this information is protected by the Federal Confidentiality of Alcohol and Drug AbusePatient Records regulations: The Federal rules restrict any use of the information to criminally investigate or prosecute any alcohol or drug abuse patient.[facility] Encounter Details Date Type Department Care Team (Late st Contact Info) Description 10/23/2019 Abstract Dentistry [address] [id number] Conversion, [employer] Social History Tobacco Use Types Packs/Day Years Used Date Smoking Tobacco: Former Cigarettes 0.3 3 Smokeless Tobacco: Never Comments:quit in 1993 Alcohol Use Standard Drinks/Week Comments No 0 (1 standard drink = 0.6 oz pur e alcohol) Comments Unknown Sex and Gender Information Value Date Recorded Sex Assigned at Not on file Legal Sex Female 7:33 AM EST Gender Identity Not on file Sexual Orientation Not on file documented as of this encounter Functional Status * Are you deaf or do you have serious difficulty hearing? Answer Date of Assessment Author No 07/05/2015 2:33 PM EDT Trish AquinoRn) (Hist), RN * Are you blind or do you have serious difficulty seeing, even when wearing glasses? Answer Date of Assessment Author No 07/05/2015 2:33 PM EDT Trish AquinoRn) (Hist), RN * Do you have serious difficulty walking or climbing stairs? Answer Date of Assessment Author No 07/05/2015 2:33 PM EDT Trish Aquino (Rn) (Hist), RN * Do you have difficulty dressing or bathing? Answer Date of Assessment Author No 07/05/2015 2:33 PM EDT Trish AquinoRn) (Hist), RN * Because of a physical, mental, or emotional condition, do you have difficulty doing errands alone such as visiting a doctor's office or shopping? Answer Date of Assessment Author No 07/05/2015 2:33 PM EDT Trish AquinoRn) (Hist), RN documented as of this encounter Mental Status * Because of a physical, mental, or emotional condition, do you have serious difficulty concentrating, remembering, or making decisions? Answer Entry Date Author No 07/05/2015 2:33 PM EDT Trish AquinoRn) (Hist), RN documented in this encounter Plan of Treatment Not on file documented as of this encounter Procedures Procedure Name Priority Date/Time Associated Diagnosis Comments [facility] CALL Routine 10/22/2005 12:00 AM EST documented in this encounter Visit Diagnoses Not on filedocumented in this encounter Additional Health Concerns Infection Onset Date Last Indicated Resolved Time COVID-19 Rule-Out 01/15/2025 01/15/2025 01/15/2025 10:01 AM EST Influenza 01/15/2025 01/15/2025 01/29/2025 8:51 PM EST C. difficile 01/20/2025 01/20/2025 02/19/2025 8:51 PM EDT Norovirus 01/20/2025 01/20/2025 documented as of this encounter Care Teams Curbstone Setter Relationship Specialty Start Date End Date Vijay Davis MD PCP - General Family Medicine 05/13/19 Sang Guerra MD [address] [facility] [place] [address] Referring Internal Medicine 01/18/25 documented as of this encounter
--- OUTSIDE RECORDS SUMMARY | 2025-05-25 08:16 | XMS_ITS | Clinical Summary ---
Author Organization [facility] Address [address] [place] [address] Care Team Providers Care Manager Chemistry Name Role Phone Unavailable Primary Care Provider Unavailabl e Allergies Active Allergy Reactions Criticality Noted Date Comments Promethazine Hallucinations 09/04/2024 Social History Tobacco Use Types Packs/Day Years Used Date Smoking Tobacco: Never Assessed Comments Unknown Sex and Gender Information Value Date Recorded Sex Assigned at Not on file Legal Sex Female 7:06 PM EDT Gender Identity Not on file Sexual Orientation Not on file Plan of Treatment Not on file
--- OUTSIDE RECORDS SUMMARY | 2025-05-25 08:18 | XMS_ITS | Encounter Summary ---
Author Organization [facility] Address [address] [place] [address] Care Team Providers Care Wood Polisher Name Role Phone Vijay Davis MD Primary Care Provider [phone] Sang Guerra MD Unavailable [phone] Source Comments In the event this information is protected by the Federal Confidentiality of Alcohol and Drug AbusePatient Records regulations: The Federal rules restrict any use of the information to criminally investigate or prosecute any alcohol or drug abuse patient.[facility] Encounter Details Date Type Department Care Team (Late st Contact Info) Description 04/24/2022 Lab Requisition [facility] [address] [place] [address] Sandrita Santana, SPA COORDINATOR.PLANT SUPERINTENDENT [address] [place] [address] Heart transplant status (HCC) Social History Tobacco Use Types Packs/Day Years Used Date Smoking Tobacco: Former Cigarettes 0.3 3 Smokeless Tobacco: Never Comments:quit in 1993 Alcohol Use Standard Drinks/Week Comments No 0 (1 standard drink = 0.6 oz pur e alcohol) Area Deprivation Index Answer Date Chaz rded National Score (1-100), lower number is lower ri sk Not on file 11/06/2020 State Score (1-10), lower number is lower risk N ot on file 11/06/2020 Data from: https://www.neighborhoodatlas.medicine.[facility]/. Last address used for calculation Not on file 11/06/2020 Comments Unknown Sex and Gender Information Value [...] Author No 07/05/2015 2:33 PM EDT Trish Aquino) (Hist), RN * Do you have serious [...] Author No 07/05/2015 2:33 PM EDT Trish Aquino) (Hist), RN documented as of this encounter [...] Procedure Name Priority Date/Time Associated Diagnosis Comments LAVENDER TOP EXTRA TUBE Routine 04/24/2022 9:23 AM EDT Heart transplant status (HCC) TACROLIMUS ASSAY Routine 04/24/2022 9:23 AM EDT Heart transplant status (HCC) documented in this encounter Results * LAVENDER TOP EXTRA TUBE (04/24/2022 9:23 AM EDT) Blood BLOOD SPECIMEN / Unknown 04/24/2022 9:23 AM EDT 04/24/2022 11:47 PM EDT Sandrita Santana SPA COORDINATOR.PLANT SUPERINTENDENT LABORATORY Final Re sult Performing Organization Address City/[facility] Co de Phone Number [facility] [address] [facility] [place] [place] [address], * (ABNORMAL) TACROLIMUS/FK-506 BL (04/24/2022 9:23 AM EDT) Tacrolimus/FK506 4.5(L) 5.0 - 20.0 ng/mL 04/25/2022 10:05 AM EDT [facility] Comment: These reference ranges are provided as a general [...] situation. Test performed by chemiluminescent immunoassay using [employer]. Blood BLOOD SPECIMEN / Unknown 04/24/2022 9:23 AM EDT 04/24/2022 11:47 PM EDT Sandrita Santana APRN.PLANT SUPERINTENDENT LABORATORY Final Re sult Performing Organization Address [facility]/ZIP Co de Phone Number [facility] [address] [facility] [place] [place] [address], documented in this encounter Visit Diagnoses Diagnosis Heart transplant status (HCC) documented in this encounter Additional Health Concerns Infection Onset Date Last Indicated Resolved Time COVID-19 Rule-Out 01/15/2025 01/15/2025 01/15/2025 10:01 AM EST Influenza 01/15/2025 01/15/2025 01/29/2025 8:51 PM EST C. difficile 01/20/2025 01/20/2025 02/19/2025 8:51 PM EDT Norovirus 01/20/2025 01/20/2025 documented as of this encounter Care Teams Wood Polisher Relationship Specialty Start Date End Date Vijay Davis MD PCP - General Family Medicine 05/13/19 Sang Guerra MD [address] [id number] Referring Internal Medicine 01/18/25 documented as of this encounter
--- OUTSIDE RECORDS SUMMARY | 2025-05-25 08:18 | XMS_ITS | Encounter Summary ---
Author Organization [facility] Address [address] [place] [address] Care Team Providers Care Armor Officer Name Role Phone Vijay Davis MD Primary Care Provider [phone] Sang Guerra MD Unavailable [phone] Source Comments In the event this information is protected by the Federal Confidentiality of Alcohol and Drug AbusePatient Records regulations: The Federal rules restrict any use of the information to criminally investigate or prosecute any alcohol or drug abuse patient.[facility] Encounter Details Date Type Department Care Team (Late st Contact Info) Description 04/10/2022 Lab Requisition [facility] Laboratory [address] [place] [address] Sandrita Santana, BARN WORKER.MECHANICAL DOOR REPAIRER [address] [place] [address] Heart transplant status (HCC) Social [...] N ot on file 11/06/2020 Data from: https://www.neighborhoodatlas.medicine.[facility]/. Last address used for calculation [...] AquinoRn) (Hist), RN * Do you have difficulty [...] Diagnosis Comments LAVENDER TOP EXTRA TUBE Routine 04/09/2022 7:50 AM EDT Heart transplant status (HCC) LAVENDER TOP EXTRA TUBE Routine 04/09/2022 7:50 AM EDT Heart transplant status (HCC) TACROLIMUS ASSAY Routine 04/09/2022 7:50 AM EDT Heart transplant status (HCC) documented in this encounter Results * LAVENDER TOP EXTRA TUBE (04/09/2022 7:50 AM EDT) Blood BLOOD SPECIMEN / Unknown 04/09/2022 7:50 AM EDT 04/10/2022 12:49 AM EDT us Sandrita Santana APRN.MECHANICAL DOOR REPAIRER LABORATORY Final Re sult Performing Organization Address [facility] Co de Phone Number [facility] [place] [address], [place] * LAVENDER TOP EXTRA TUBE (04/09/2022 7:50 AM EDT) Blood BLOOD SPECIMEN / Unknown 04/09/2022 7:50 AM EDT 04/10/2022 12:49 AM EDT us Sandrita Santana APRN.MECHANICAL DOOR REPAIRER LABORATORY Final Re sult Performing Organization Address [facility] de Phone Number [facility] [place] [address], [place] * TACROLIMUS/FK-506 BL (04/09/2022 7:50 AM EDT) Pathologist [facility] Tacrolimus/FK506 9.9 5.0 - 20.0 ng/mL 04/10/2022 5:16 PM EDT [facility] Comment: These reference ranges are [...] situation. Test performed by chemiluminescent immunoassay using [employer]. Blood BLOOD SPECIMEN / Unknown 04/09/2022 7:50 AM EDT 04/10/2022 12:49 AM EDT us Sandrita Santana BARN WORKER.MECHANICAL DOOR REPAIRER LABORATORY Final Re sult [facility] [address] [facility] [address] [place] [address], documented in this encounter Visit Diagnoses Diagnosis Heart transplant status (HCC) documented in this encounter Additional Health Concerns Infection Onset Date Last Indicated Resolved Time COVID-19 Rule-Out 01/15/2025 01/15/2025 01/15/2025 10:01 AM EST Influenza 01/15/2025 01/15/2025 01/29/2025 8:51 PM EST C. difficile 01/20/2025 01/20/2025 02/19/2025 8:51 PM EDT Norovirus 01/20/2025 01/20/2025 documented as of this encounter Care Teams Armor Officer Relationship Specialty Start Date End Date Vijay Davis MD PCP - General Family Medicine 05/13/19 Sang Guerra MD [address] [place], [place] [id number] Referring Internal Medicine 01/18/25 documented as of this encounter
--- OUTSIDE RECORDS SUMMARY | 2025-05-25 08:18 | XMS_ITS | Encounter Summary ---
Author Organization [facility] Address [address] [place] [address] Phone Care Team Providers Care Director Inbound Sales Name Role Phone Vijay Davis MD Primary Care Provider [phone] Encounter Details Date Type Department Care Team (Late st Contact Info) Description 06/18/2024 Scanned Document [facility] [address] [place] [id number] Scanning, Generic Provider Social History Tobacco Use Types Packs/Day Years Used Date Smoking Tobacco: Never Assessed Comments Unknown Sex and Gender Information Value Date Recorded Sex Assigned at Not on file Legal Sex Female 2:49 PM EDT Gender Identity Not on file Sexual Orientation Not on file documented as of this encounter Plan of Treatment Not on file documented as of this encounter Visit Diagnoses Not on filedocumented in this encounter Care Teams Director Inbound Sales Relationship Specialty Start Date End Date Vijay Davis MD [address] [facility] [place] [address] PCP - General Family Medicine 09/16/24 documented as of this encounter
--- OUTSIDE RECORDS SUMMARY | 2025-05-25 08:18 | XMS_ITS | Encounter Summary ---
Author Organization [facility] Address [address] [place] [address] Care Team Providers Care Salvationist Name Role Phone Vijay Davis MD Primary Care Provider [phone] Sang Guerra MD Unavailable [phone] Source Comments In the event this information is protected by the Federal Confidentiality of Alcohol and Drug AbusePatient Records regulations: The Federal rules restrict any use of the information to criminally investigate or prosecute any alcohol or drug abuse patient.[facility] Encounter Details Date Type Department Care Team (Late st Contact Info) Description 04/12/2022 Patient Msg Transplant Center [address] [phone] Provider, [facility] upcoming appts Social History Tobacco Use Types Packs/Day Years [...] N ot on file 11/06/2020 Data from: https://www.neighborhoodatlas.[facility]/. Last address used for calculation Not on [...] Author No 07/05/2015 2:33 PM EDT Trish AuqinoRn) (Hist), RN documented as of this encounter [...] documented as of this encounter Care Teams Salvationist Relationship Specialty Start Date End Date Vijay Davis MD PCP - General Family Medicine 05/13/19 Sang Guerra MD [address] [place] [address] Referring Internal Medicine 01/18/25 documented as of this encounter
--- OUTSIDE RECORDS SUMMARY | 2025-05-25 08:18 | XMS_ITS | Encounter Summary ---
Author Organization [facility] Address [facility] [place] [address] Care Team Providers Care Sales Systems Engineer Name Role Phone Vijay Davis MD Primary Care Provider [phone] Sang Guerra MD Unavailable [phone] Source Comments In the event this information is protected by the Federal Confidentiality of Alcohol and Drug AbusePatient Records regulations: The Federal rules restrict any use of the information to criminally investigate or prosecute any alcohol or drug abuse patient.[facility] Encounter Details Date Type Department Care Team (Late st Contact Info) Description 08/03/2022 Lab Requisition [facility] Laboratory [facility] [place] [address] Loida Mathias APRN.DISTRIBUTION FIELD TECHNICIAN [address] [place] [address] Heart transplant status (HCC) Social History Tobacco [...] N ot on file 11/06/2020 Data from: https://www.neighborhoodatlas.medicine.[facility]/. Last address used for calculation Not on [...] EDT Trish Aquino (Rn) (Hist), RN * Are you blind or do you have serious difficulty seeing, even when wearing glasses? Answer Date of Assessment Author No 07/05/2015 2:33 PM EDT Trish Aquino (Rn) (Hist), RN * Do you have serious difficulty walking or climbing stairs? Answer Date of Assessment Author No 07/05/2015 2:33 PM EDT Trish Aquino (Rn) (Hist), RN * Do you have difficulty dressing or bathing? Answer Date of Assessment Author No 07/05/2015 2:33 PM EDT Trish Aquino (Rn) (Hist), RN * Because of a physical, mental, or emotional condition, do you have difficulty doing errands alone such as visiting a doctor's office or shopping? Answer Date of Assessment Author No 07/05/2015 2:33 PM EDT Trish Aquino (Rn) (Hist), RN documented as of this encounter Mental Status * Because of a physical, mental, or emotional condition, do you have serious difficulty concentrating, remembering, or making decisions? Answer Entry Date Author No 07/05/2015 2:33 PM EDT Trish Aquino (Rn) (Hist), RN documented in this encounter Plan of Treatment Not on file documented as of this encounter Procedures Procedure Name Priority Date/Time Associated Diagnosis Comments TACROLIMUS ASSAY Routine 08/02/2022 8:00 AM EDT Heart transplant status (HCC) documented in this encounter Results * (ABNORMAL) TACROLIMUS/FK-506 BL (08/02/2022 8:00 AM EDT) Tacrolimus/FK506 4.7(L) 5.0 - 20.0 ng/mL 08/04/2022 3:22 PM EDT [facility] Comment: These reference ranges are [...] situation. Test performed by chemiluminescent immunoassay using [employer]. Blood BLOOD SPECIMEN / Unknown 08/02/2022 8:00 AM EDT 08/03/2022 2:09 AM EDT us Loida Mathias APRN.DISTRIBUTION FIELD TECHNICIAN LABORATORY Fi nal Result [facility] [address] documented in this encounter Visit Diagnoses Diagnosis Heart transplant status (HCC) documented in this encounter Additional Health Concerns Infection Onset Date Last Indicated Resolved Time COVID-19 Rule-Out 01/15/2025 01/15/2025 01/15/2025 10:01 AM EST Influenza 01/15/2025 01/15/2025 01/29/2025 8:51 PM EST C. difficile 01/20/2025 01/20/2025 02/19/2025 8:51 PM EDT Norovirus 01/20/2025 01/20/2025 documented as of this encounter Care Teams Sales Systems Engineer Relationship Specialty Start Date End Date Vijay Davis MD PCP - General Family Medicine 05/13/19 Sang Guerra MD [address] [phone] Referring Internal Medicine 01/18/25 documented as of this encounter
--- OUTSIDE RECORDS SUMMARY | 2025-05-25 08:18 | XMS_ITS | Clinical Summary ---
Author Organization [facility] Address [address] [place] [address] Phone Care Team Providers Care Cylinder Grinder Name Role Phone Vijay Davis MD Primary Care Provider [phone] Social History Tobacco Use Types Packs/Day Years Used Date Smoking Tobacco: Never Assessed Comments Unknown Sex and Gender Information Value Date Recorded Sex Assigned at Not on file Legal Sex Female 2:49 PM EDT Gender Identity Not on file Sexual Orientation Not on file Plan of Treatment Health Maintenance Due Date Last Done Comments Bone Density Scan 1944 Creatinine Level 1944 Echocardiogram 1944 Lipid Panel 1945 Medicare Annual Wellness Visit (AWV) 1944 Potassium Level 1944 Diabetes Screening 1962 Zoster Vaccines (1 of 2) 1994 RSV High Risk: (Elderly (60+) or Population) (1 - 1-dose 75+ series) 2019 COVID-19 Vaccine ( - season) 2024 06/05/2022, 08/29/2021, 08/02/2021 Influenza Vaccine (Season Ended) 2025 07/14/2022, 07/05/2021, 09/29/2020, Additional history exists DTaP/Tdap/Td Vaccines (2 - Tdap) 02/09/2031 02/09/2021 Pneumococcal Vaccine Completed 08/07/2017, 09/29/2015, 11/01/2012, Additional history exists HIB Vaccines Aged Out No longer eligi ble based on patient's age to complete this topic HPV Vaccines Aged Out No longer eligi ble based on patient's age to complete this topic Hepatitis A Vaccines Aged Out No long er eligible based on patient's age to complete this topic Hepatitis B Vaccines Aged Out No long er eligible based on patient's age to complete this topic IPV Vaccines Aged Out No longer eligi ble based on patient's age to complete this topic Meningococcal Vaccine Aged Out No serina julito eligible based on patient's age to complete this topic Rotavirus Vaccines Aged Out No longer eligible based on patient's age to complete this topic Insurance MEDICAID DUAL COMPLETE MEDICAID DUAL COMPLETE Care Teams Cylinder Grinder Relationship Specialty Start Date End Date Vijay Davis MD [address] [place] [address] PCP - General Family Medicine 09/16/24
--- OUTSIDE RECORDS SUMMARY | 2025-05-25 08:19 | XMS_ITS | Encounter Summary ---
Author Organization [facility] Address [address] [address] Care Team Providers Care Layout Mechanic Name Role Phone Vijay Davis MD Primary Care Provider [phone] Reason for Visit * Reason Comments Med Change Request Encounter Details Date Type Department Care Team (Late st Contact Info) Description 04/10/[address] [address] Jameel Daly MD [address] [place] [address] Primary hypertension Social History Tobacco Use Types Packs/Day Years Used Date Smoking Tobacco: Never Smokeless Tobacco: Never Alcohol Use Standard Drinks/Week Comments Not Currently 0 (1 standard drink = 0.6 oz pur e alcohol) Comments Unknown Sex and Gender Information Value Date Recorded Sex Assigned at Not on file Legal Sex Female 9:41 PM EDT Gender Identity Not on file Sexual Orientation Not on file documented as of this encounter Plan of Treatment Upcoming Encounters Date Type Department Care Team (Late st Contact Info) Description 05/31/2025 2:00 PM EDT Office Visit [address] [address] Jameel Daly MD [address] [place] [address] documented as of this encounter Visit Diagnoses Diagnosis Primary hypertension Unspecified essential hypertension documented in this encounter Additional Health Concerns Infection Onset Date Last Indicated Resolved Time C. difficile Rule-Out 01/08/2025 01/09/20252024 2:48 PM EST documented as of this encounter Care Teams Layout Mechanic Relationship Specialty Start Date End Date Vijay Davis MD [address] [facility] [address] [address] PCP - General 08/12/22 documented as of this encounter
--- OUTSIDE RECORDS SUMMARY | 2025-05-25 08:19 | XMS_ITS | Encounter Summary ---
Author Organization [facility] Address [address] [place] [address] Care Team Providers Care Pie Bottomer Name Role Phone Vijay Davis MD Primary Care Provider + Sang Guerra MD Unavailable [phone] Source Comments In the event this information is protected by the Federal Confidentiality of Alcohol and Drug AbusePatient Records regulations: The Federal rules restrict any use of the information to criminally investigate or prosecute any alcohol or drug abuse patient.[facility] Encounter Details Date Type Department Care Team (Late st Contact Info) Description 01/12/2025 Ophth Exam Ophthalmology [address] [address] Roosevelt Lopez MD [address] [place] [address] Social History Tobacco Use Types Packs/Day Years [...] N ot on file 11/06/2020 Data from: https://www.neighborhoodatlas.medicine.[facility]/. Last address used for calculation Not on [...] No 07/05/2015 2:33 PM EDT Trish Aquino (Estefany) (Hist), RN * Because of a physical, [...] PM EDT Trish Aquino) (Hist), RN documented in this encounter Plan [...] documented as of this encounter Care Teams Pie Bottomer Relationship Specialty Start Date End Date Vijay Davis MD PCP - General Family Medicine 05/13/19 Sang Guerra MD [address] [place] [address] Referring Internal Medicine 01/18/25 documented as of this encounter
--- OUTSIDE RECORDS SUMMARY | 2025-05-25 08:19 | XMS_ITS | Encounter Summary ---
Author Organization [facility] Address [facility] [address] Care Team Providers Care Integrated Marketing Manager Name Role Phone Vijay Davis MD Primary Care Provider [phone] Sang Guerra MD Unavailable [phone] Source Comments In the event this information is protected by the Federal Confidentiality of Alcohol and Drug AbusePatient Records regulations: The Federal rules restrict any use of the information to criminally investigate or prosecute any alcohol or drug abuse patient.[facility] Encounter Details Date Type Department Care Team (Late st Contact Info) Description 07/03/2022 Lab Requisition [facility] Laboratory [facility] [place] [address] Loida Mathias APRN.BOILERMAKER [address] [place] [address] Heart transplant status (HCC) Social [...] N ot on file 11/06/2020 Data from: https://www.neighborhoodatlas.medicine.[facility]/. Last address used for calculation Not on [...] Diagnosis Comments LAVENDER TOP EXTRA TUBE Routine 07/03/2022 9:15 AM EDT Heart transplant status (HCC) LAVENDER TOP EXTRA TUBE Routine 07/03/2022 9:15 AM EDT Heart transplant status (HCC) LAVENDER TOP EXTRA TUBE Routine 07/03/2022 9:15 AM EDT Heart transplant status (HCC) TACROLIMUS ASSAY Routine 07/03/2022 9:15 AM EDT Heart transplant status (HCC) documented in this encounter Results * LAVENDER TOP EXTRA TUBE (07/03/2022 9:15 AM EDT) Blood BLOOD SPECIMEN / Unknown 07/03/2022 9:15 AM EDT 07/03/2022 11:17 PM EDT Loida Mathias APRN.[facility] Fi nal Result [facility] [address] [place] [address], [place] * LAVENDER TOP EXTRA TUBE (07/03/2022 9:15 AM EDT) Blood BLOOD SPECIMEN / Unknown 07/03/2022 9:15 AM EDT 07/03/2022 11:17 PM EDT Loida Mathias APRN.BOILERMAKER LABORATORY Fi nal Result Performing Organization Address City/[facility] [[email or web address]] Co de Phone Number [facility] [address] [place] [address], [place] * LAVENDER TOP EXTRA TUBE (07/03/2022 9:15 AM EDT) Blood BLOOD SPECIMEN / Unknown 07/03/2022 9:15 AM EDT 07/03/2022 11:17 PM EDT Loida Mathias APRN.BOILERMAKER LABORATORY Fi nal Result Performing Organization Address City/[facility]/ZIP Co de Phone Number [facility] [address] [place] [address], [place] * TACROLIMUS/FK-506 BL (07/03/2022 9:15 AM EDT) Pathologist [facility] Tacrolimus/FK506 12.4 5.0 - 20.0 ng/mL 07/04/2022 11:46 PM EDT [facility] Comment: These reference ranges are provided [...] Test performed by chemiluminescent immunoassay using [employer]. Blood BLOOD SPECIMEN / Unknown 07/03/2022 9:15 AM EDT 07/03/2022 11:17 PM EDT us Loida Mathias CHIPPER.BOILERMAKER LABORATORY Fi nal Result [facility] [address] [facility] [address]k [address] [place] [address], documented in this encounter Visit Diagnoses Diagnosis Heart transplant status (HCC) documented in this encounter Additional Health Concerns Infection Onset Date Last Indicated Resolved Time COVID-19 Rule-Out 01/15/2025 01/15/2025 01/15/2025 10:01 AM EST Influenza 01/15/2025 01/15/2025 01/29/2025 8:51 PM EST C. difficile 01/20/2025 01/20/2025 02/19/2025 8:51 PM EDT Norovirus 01/20/2025 01/20/2025 documented as of this encounter Care Teams Integrated Marketing Manager Relationship Specialty Start Date End Date Vijay Davis MD PCP - General Family Medicine 05/13/19 Sang Guerra MD [address] [place] [id number] Referring Internal Medicine 01/18/25 documented as of this encounter
--- OUTSIDE RECORDS SUMMARY | 2025-05-25 08:19 | XMS_ITS | Encounter Summary ---
Author Organization [facility] Address [address] [place] [address] Care Team Providers Care Hotel Manager Name Role Phone Vijay Davis MD Primary Care Provider [phone] Sang Guerra MD Unavailable [phone] Source Comments In the event this information is protected by the Federal Confidentiality of Alcohol and Drug AbusePatient Records regulations: The Federal rules restrict any use of the information to criminally investigate or prosecute any alcohol or drug abuse patient.[facility] Encounter Details Date Type Department Care Team (Late st Contact Info) Description 05/08/2022 Lab Requisition [facility] [address] [place] [address] Sandrita Santana, EXERCISE SCIENCE INSTRUCTOR.KENO WRITER/RUNNER [address] [place] [address] Heart transplant status (HCC) Social [...] N ot on file 11/06/2020 Data from: https://www.neighborhoodatlas.medicine.[facility]/. Last address used for calculation Not [...] Date/Time Associated Diagnosis Comments TACROLIMUS ASSAY Routine 05/07/2022 9:31 AM EDT Heart transplant status (HCC) documented in this encounter Results * (ABNORMAL) TACROLIMUS/FK-506 BL (05/07/2022 9:31 AM EDT) Tacrolimus/FK506 3.4(L) 5.0 - 20.0 ng/mL 05/08/2022 12:51 PM EDT [facility] Comment: These reference ranges are provided [...] situation. Test performed by chemiluminescent immunoassay using [employer]. Blood BLOOD SPECIMEN / Unknown 05/07/2022 9:31 AM EDT 05/08/2022 12:08 AM EDT us Snadrita Santana EXERCISE SCIENCE INSTRUCTOR.KENO WRITER/RUNNER LABORATORY Final Re sult [facility] [address] [place] [address], documented in this encounter Visit Diagnoses Diagnosis Heart transplant status (HCC) documented in this encounter Additional Health Concerns Infection Onset Date Last Indicated Resolved Time COVID-19 Rule-Out 01/15/2025 01/15/2025 01/15/2025 10:01 AM EST Influenza 01/15/2025 01/15/2025 01/29/2025 8:51 PM EST C. difficile 01/20/2025 01/20/2025 02/19/2025 8:51 PM EDT Norovirus 01/20/2025 01/20/2025 documented as of this encounter Care Teams Hotel Manager Relationship Specialty Start Date End Date Vijay Davis MD PCP - General Family Medicine 05/13/19 Sang Guerra MD [address] [place], [place] [id number] Referring Internal Medicine 01/18/25 documented as of this encounter
--- OUTSIDE RECORDS SUMMARY | 2025-05-25 08:19 | XMS_ITS | Encounter Summary ---
Author Organization [facility] Address [address] [place] [address] Care Team Providers Care Academic Program Specialist Name Role Phone Vijay Davis MD Primary Care Provider [phone] Sang Gurera MD Unavailable [phone] Source Comments In the event this information is protected by the Federal Confidentiality of Alcohol and Drug AbusePatient Records regulations: The Federal rules restrict any use of the information to criminally investigate or prosecute any alcohol or drug abuse patient.[facility] Encounter Details Date Type Department Care Team (Late st Contact Info) Description 05/27/2024 [facility] [address] [phone] Provider, [facility] Heart Transplant Office updates Social History Tobacco Use Types Packs/Day Years [...] N ot on file 11/06/2020 Data from: https://www.neighborhoodatlas.[facility]/. Last address used for calculation Not [...] Assessment Author No 07/05/2015 2:33 PM EDT Trsih AquinoRn) (Hist), RN documented as of this [...] documented as of this encounter Care Teams Academic Program Specialist Relationship Specialty Start Date End Date Vijay Davis MD PCP - General Family Medicine 05/13/19 Sang Guerra MD [address] [place] [address] Referring Internal Medicine 01/18/25 documented as of this encounter
--- OUTSIDE RECORDS SUMMARY | 2025-05-25 08:19 | XMS_ITS | Clinical Summary ---
Author Organization [facility] Address [address] [employer] [place] [address] Care Team Providers Care Country Printer Name Role Phone Fausto Garcia Primary Care Provider [phone] Allergies Active Allergy Reactions Criticality Noted Date Comments Promethazine Hcl Other (See Comments) High 7 hallucinations Medications tacrolimus (PROGRAF) 1 MG capsuleIndicati ons:for a total of 1mg/daily Take 0.5 mg by mouth 2 times daily Indications: for a total of 1mg/daily Active escitalopram (LEXAPRO) 10 MG tablet Take 10 mg by mouth daily Active amitriptyline (ELAVIL) 25 MG tablet Take 25 mg by mouth nightly Active simvastatin (ZOCOR) 20 MG tablet Take 20 mg by mouth nightly Active cycloSPORINE (RESTASIS) 0.05 % ophthalmic emulsion Place 1 drop into both eyes 2 times daily Active pramipexole (MIRAPEX) 0.25 MG tablet Take 0.25 mg by mouth nightly Active alendronate (FOSAMAX) 70 MG tablet Take 70 mg by mouth every 7 days 12/23/2016 Active magnesium oxide (MAG-OX) 400 MG tablet Take 2 tablets by mouth 2 times daily 60 tablet 12/28/2016 Active clonazePAM (KLONOPIN) 0.5 MG tablet Take 1 tablet by mouth 2 times daily 60 tablet 12/28/2016 Active mycophenolate (CELLCEPT) 250 MG capsule Take 2 capsules by mouth 2 times daily 60 capsule 12/28/2016 Active lipase-protease -amylase (CREON) 07235 UNITS delayed release capsule Take 3 capsules by mouth 3 times daily (with meals) 180 capsule 2 12/28/2016 Active codeine 30 MG tablet Take 30 mg by mouth every 8 hours as needed for Pain . Active Active Problems Problem Noted Date Diagnosed Date Mood disorder due to a general medical condition 2016 Generalized anxiety disorder 2016 Pancreatic insufficiency 12/26/2016 Diverticulosis of large intestine without hemorr magalis 12/24/2016 Duodenitis 12/24/2016 Severe malnutrition 12/23/2016 Heart transplanted 12/21/2016 Acute renal failure 12/21/2016 Depression with suicidal ideation 12/21/2016 High anion gap metabolic acidosis 12/21/2016 Hypokalemia 12/21/2016 Leukocytosis 12/21/2016 Hypomagnesemia 12/21/2016 Anemia 12/21/2016 Diarrhea in adult patient 12/21/2016 Overview (12/21/2016): Diarrhea for 18 months of unknown etiology Social History Tobacco Use Types Packs/Day Years Used Date Smoking Tobacco: Former Smokeless Tobacco: Former Quit: 12/20/1998 Tobacco Cessation:Counseling Given: No Alcohol Use Standard Drinks/Week Comments No 0 (1 standard drink = 0.6 oz pur e alcohol) Comments No Sex and Gender Information Value Date Recorded Sex Assigned at Not on file Legal Sex Female 9:18 PM EST Gender Identity Not on file Sexual Orientation Not on file Last Filed Vital Signs Vital Sign Reading Time Taken Comments Blood Pressure 128/55 01/11/2017 8:00 AM EST Pulse 71 01/11/2017 8:00 AM EST Temperature 36.7 C (98.1 F) 01/11/2017 8:00 AM EST Respiratory Rate 16 01/11/2017 8:00 AM EST Oxygen Saturation 100% 01/11/2017 8:00 AM EST Inhaled Oxygen Concentration - - Weight 46.3 kg (102 lb) 01/10/2017 3:02 PM EST Height 157.5 cm (5' 2 ) 01/10/2017 3:02 PM EST Body Mass Index 18.66 01/10/2017 3:02 PM EST Plan of Treatment Not on file Insurance [place] Advance Directives * Full Code (Latest Code Status on File) Date Activated Date Inactivated Comments 01/10/2017 5:40 PM 01/11/2017 3:31 PM * Full Code Date Activated Date Inactivated Comments 12/21/2016 1:48 AM 12/28/2016 3:02 PM Care Teams Country Printer Relationship Specialty Start Date End Date Fausto Garcia DO [address] [place] [address] PCP - General 12/20/16
--- OUTSIDE RECORDS SUMMARY | 2025-05-25 08:19 | XMS_ITS | Encounter Summary ---
Author Organization [facility] Address [address] [place] [address] Care Team Providers Care Fermenter Name Role Phone Vijay Davis MD Primary Care Provider + Sang Guerra MD Unavailable [phone] Source Comments In the event this information is protected by the Federal Confidentiality of Alcohol and Drug AbusePatient Records regulations: The Federal rules restrict any use of the information to criminally investigate or prosecute any alcohol or drug abuse patient.[facility] Encounter Details Date Type Department Care Team (Late st Contact Info) Description 01/13/2025 Patient Msg Ophthalmology [address] [phone] Provider, Patrice New appointment scheduled for follow up Eye exam in [place] Social History Tobacco Use Types Packs/Day Years [...] N ot on file 11/06/2020 Data from: https://www.neighborhoodatlas.[facility]/. Last address used for calculation Not on file 11/06/2020 Comments No Sex and Gender Information Value [...] documented as of this encounter Care Teams Fermenter Relationship Specialty Start Date End Date Vijay Davis MD PCP - General Family Medicine 05/13/19 Sang Guerra MD [address] [place] [address] Referring Internal Medicine 01/18/25 documented as of this encounter
--- OUTSIDE RECORDS SUMMARY | 2025-05-25 08:20 | XMS_ITS | Encounter Summary ---
Author Organization [facility] Address [address] [place] [address] Care Team Providers Care Tire Balancer Name Role Phone Fausto Garcia DO Primary Care Provider Vijay Davis MD Primary Care Provider + Sang Guerra MD Unavailable [phone] Source Comments In the event this information is protected by the Federal Confidentiality of Alcohol and Drug AbusePatient Records regulations: The Federal rules restrict any use of the information to criminally investigate or prosecute any alcohol or drug abuse patient.[facility] Encounter Details Date Type Department Care Team (Late st Contact Info) Description 03/16/2017 Get Medical Advice Infectious Disease [address] [place] [address] Noa Waterman MD [address] [place] [address] RE: Upcoming Appointment Question Social History Tobacco Use Types Packs/Day Years Used Date Smoking Tobacco: Former Cigarettes 0.3 3 Comments:quit in 1993 Alcohol Use Standard Drinks/Week [...] PM EDT Trish Aquino (Estefany) (Hist), RN documented in this encounter Miscellaneous Notes * Telephone Encounter - Mohit Prieto - 03/18/2017 8:[address] Waterman, Please see the below MyChart message and contact patient to advise within 72 hours. Mohit Baca YES I WOULD IF I CAN/THANK U documented in this encounter Plan of Treatment Not on file documented as of this encounter Visit Diagnoses Not on filedocumented in this encounter Additional Health Concerns Infection Onset Date Last Indicated Resolved Time COVID-19 Rule-Out 01/15/2025 01/15/2025 01/15/2025 10:01 AM EST Influenza 01/15/2025 01/15/2025 01/29/2025 8:51 PM EST C. difficile 01/20/2025 01/20/2025 02/19/2025 8:5 1 PM EDT Norovirus 01/20/2025 01/20/2025 documented as of this encounter Care Teams Tire Balancer Relationship Specialty Start Date End Date Fausto Garcia DO PCP - General Family Medicine 11/19/16 05/12/19 Vijay Davis MD PCP - General Family Medicine 05/13/19 Sang Guerra MD [address] [facility] [place] [address] Referring Internal Medicine 01/18/25 documented as of this encounter
--- OUTSIDE RECORDS SUMMARY | 2025-05-25 08:20 | XMS_ITS | Encounter Summary ---
Author Organization [facility] Address [facility] [place] [address] Care Team Providers Care Gamma Operator Name Role Phone Fausto Garcia DO Primary Care Provider Vijay Davis MD Primary Care Provider [phone] Sang Guerra MD Unavailable [phone] Source Comments In the event this information is protected by the Federal Confidentiality of Alcohol and Drug AbusePatient Records regulations: The Federal rules restrict any use of the information to criminally investigate or prosecute any alcohol or drug abuse patient.[facility] Encounter Details Date Type Department Care Team (Late st Contact Info) Description 03/16/2017 Patient Msg Pulmonary Medicine [address] [address] Darrius Mesa MD [address] [place] [address] RE: Request Preventive Care Procedure Social History Tobacco Use Types Packs/Day Years [...] documented as of this encounter Care Teams Gamma Operator Relationship Specialty Start Date End Date Fausto Garcia DO PCP - General Family Medicine 11/19/16 05/12/19 Vijay Davis MD PCP - General Family Medicine 05/13/19 Sang Guerra MD [address] [place] [address] Referring Internal Medicine 01/18/25 documented as of this encounter
--- OUTSIDE RECORDS SUMMARY | 2025-05-25 08:20 | XMS_ITS | Encounter Summary ---
Author Organization [facility] Address [address] [place] [address] Care Team Providers Care Animal Husbandry Worker Name Role Phone Fausto Garcia DO Primary Care Provider Vijay Davis MD Primary Care Provider +-0 Sang Guerra MD Unavailable Source Comments In the event this information is protected by the Federal Confidentiality of Alcohol and Drug AbusePatient Records regulations: The Federal rules restrict any use of the information to criminally investigate or prosecute any alcohol or drug abuse patient.[facility] Encounter Details Date Type Department Care Team (Late st Contact Info) Description 03/19/2017 Get Medical Advice Infectious Disease [address] [place] [address] Noa Waterman MD [address] [place] [address] change in appointment time Social History Tobacco Use Types Packs/Day Years [...] * Telephone Encounter - Mohit Prieto - 03/20/2017 8:[address] Waterman, Please see the below [employer] Labst message and contact patient to advise within 72 hours. Mohit Baca ?? No I do not have diarrhea any more I [place] [facility] [place] week I have everything they found out and how they took care of me my kidney was shutting down just about gone when I got there so I will bring all the papers. Hope to see u documented in this encounter Plan of Treatment [...] documented as of this encounter Care Teams Animal Husbandry Worker Relationship Specialty Start Date End Date Fausto Garcia DO PCP - General Family Medicine 11/19/16 05/12/19 Vijay Davis MD PCP - General Family Medicine 05/13/19 Sang Guerra MD [address] [facility] [place] [address] Referring Internal Medicine 01/18/25 documented as of this encounter
--- OUTSIDE RECORDS SUMMARY | 2025-05-25 08:20 | XMS_ITS | Encounter Summary ---
Author Organization [facility] Address [address] [place] [address] Care Team Providers Care Licensed Dispensing Optician Name Role Phone Fausto Garcia DO Primary Care Provider Vijay Davis MD Primary Care Provider +-0 Sang Guerra MD Unavailable [phone] Source Comments In the event this information is protected by the Federal Confidentiality of Alcohol and Drug AbusePatient Records regulations: The Federal rules restrict any use of the information to criminally investigate or prosecute any alcohol or drug abuse patient.[facility] Encounter Details Date Type Department Care Team (Late st Contact Info) Description 03/15/2017 Get Medical Advice Infectious Disease [address] [place] [address] Noa Waterman MD [address] [place] [address] RE: Non-Urgent Medical Question Social History Tobacco Use Types Packs/Day [...] * Telephone Encounter - Mohit Prieto - 03/15/2017 3:[address] Waterman, Please see the below MyChart message and contact patient to advise within 72 hours. Mohit Baca when can i see u? documented in this encounter Plan of Treatment [...] documented as of this encounter Care Teams Licensed Dispensing Optician Relationship Specialty Start Date End Date Fausto Garcia DO PCP - General Family Medicine 11/19/16 05/12/19 Vijay Davis MD PCP - General Family Medicine 05/13/19 Sang Guerra MD [address] [facility] [place] [address] Referring Internal Medicine 01/18/25 documented as of this encounter
--- OUTSIDE RECORDS SUMMARY | 2025-05-25 08:20 | XMS_ITS | Encounter Summary ---
Author Organization [facility] Address [address] [place] [address] Care Team Providers Care Accounting Coordinator Name Role Phone Fausto Garcia DO Primary Care Provider Vijay Davis MD Primary Care Provider +-1 Sang Guerra MD Unavailable [phone] Source Comments In the event this information is protected by the Federal Confidentiality of Alcohol and Drug AbusePatient Records regulations: The Federal rules restrict any use of the information to criminally investigate or prosecute any alcohol or drug abuse patient.[facility] Encounter Details Date Type Department Care Team (Late st Contact Info) Description 01/01/2018 Patient Msg Cardiology [address] [place] [address] Sandrita Santana, WORKFORCE DEVELOPMENT SPECIALIST.SENIOR LIVING SALES COUNSELOR [address] [place] [address] Labs and Phone Number Social History Tobacco Use Types Packs/Day Years [...] documented as of this encounter Care Teams Accounting Coordinator Relationship Specialty Start Date End Date Fausto Garcia DO PCP - General Family Medicine 11/19/16 05/12/19 Vijay Davis MD PCP - General Family Medicine 05/13/19 Sang Guerra MD [address] [place] [id number] Referring Internal Medicine 01/18/25 documented as of this encounter
--- OUTSIDE RECORDS SUMMARY | 2025-05-25 08:22 | XMS_ITS | Clinical Summary ---
Author Organization [facility] Address [address] [place] [address] Care Team Providers Care Plumbing Warehouse Helper Name Role Phone Vijay Davis MD Primary Care Provider [phone] Allergies Active Allergy Reactions Criticality Noted Date Comments Promethazine 08/12/2022 Promethazine Hcl Hallucinations,Other High 5 hallucinations hallucinations hallucinations hallucinations Medications aspirin 81 mg EC tablet Take 1 tablet every day by oral route. Active rpjurh-fytqxyog-dth lase (Creon) 24,000-76,000 -120,000 unit capsule Take 4 capsules by mouth with breakfast, with lunch, and with evening meal. Active levothyroxine (Synthroid, Levoxyl) 112 mcg tablet take 1 tablet by mouth every other day (alternates with 100mcg tablet) Active mycophenolate (Cellcept) 250 mg capsule take 2 capsules by mouth every morning and 2 capsules every evening Active pramipexole (Mirapex) 0.5 mg tablet Take 1 tablet by mouth at bedtime. Active simvastatin (Zocor) 20 mg tablet Take 1 tablet by mouth in the evening. Active magnesium oxide (Mag-Ox) 400 mg tablet 500 mg in the morning. Active omega-3 1,000 mg capsule capsule Take 2,000 mg by mouth in the morning. 03/12/20 14 Active carvedilol (Coreg) 25 mg tabletIndications:P rimary hypertension Take 1 tablet (25 mg) by mouth with breakfast and with evening meal. 180 tablet 3 11/12/20 23 Active escitalopram (Lexapro) 10 mg tablet Take 10 mg by mouth in the morning. 01/13/20 24 Active tacrolimus (Prograf) 1 mg capsuleIndications: Status post heart transplantation (CMS/HCC) TAKE 1 CAPSULE BY MOUTH IN THE MORNING AND AT BEDTIME 180 capsule 3 12/29/19 25 Active dorzolamide-timolol (Cosopt) 22.3-6.8 mg/mL ophthalmic solution Administer 1 drop into the left eye two times daily. 12/03/19 Active ganciclovir in sodium chloride 0.9 % 100 mL IVPBIndications:Pne umonia of left lower lobe due to infectious organism Do not start before January 12, 2025. 01/12/20 25 Active citalopram (CeleXA) 20 mg tablet Take 1 tablet by mouth in the morning. 05/10/20 Active ferrous sulfate 324 mg (65 mg iron) EC tablet Take 65 mg by mouth with breakfast. 10/06/20 Active Active Problems Problem Noted Date Diagnosed Date Bronchitis 02/05/2025 Acute gastric ulcer without hemorrhage or perfor ation 01/22/2025 C. 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 Will hold on starting azithromycin before we know patient's QT Mucinex as needed for cough Albuterol inhaler as needed for shortness of breath Follow-up on Legionella antigen in the urine Acute kidney injury superimposed on CKD 01/08/20 Assessment & Plan (01/08/2025 9:48 PM EST): Nephrology consult Renal ultrasound Will avoid and hold nephrotoxic medications Acute cystitis without hematuria 01/08/2025 Assessment & Plan (01/08/2025 9:48 PM EST): Patient will be on Rocephin IV daily. Kidney stone 07/01/2024 Coronary heart disease 11/12/2023 3 Valvular heart disease 11/12/2023 3 Chronic diarrhea 01/07/2023 CKD (chronic kidney disease) 01/07/2023 Depressive disorder 01/07/2023 Left upper quadrant abdominal pain 01/07/2023 Nausea and vomiting 01/07/2023 Nonischemic congestive cardiomyopathy 05/03/2022 Anxiety 10/30/2021 Hypertensive disorder 10/30/2021 Hypothyroidism 10/30/2021 Right bundle branch block 10/30/2021 Status post heart transplantation 10/30/2021 Assessment & Plan (01/08/2025 9:48 PM EST): Cardiology consult Per report, patient had echo done 1 day ago which showed normal EF Patient's BNP was elevated but her kidney function worsened significantly. Mood disorder due to a general medical condition 2016 Pancreatic insufficiency 12/26/2016 Diverticulosis of large intestine without hemorr magalis 12/24/2016 Duodenitis 12/24/2016 Severe malnutrition 12/23/2016 Anemia 12/21/2016 Acute renal failure 12/21/2016 Diarrhea in adult patient 12/21/2016 Overview (01/07/2023): Diarrhea for 18 months of unknown etiology High anion gap metabolic acidosis 12/21/2016 Hypokalemia 12/21/2016 Hypomagnesemia 12/21/2016 Leukocytosis 12/21/2016 Generalized anxiety disorder 07/05/2015 DREW (acute kidney injury) 12/03/2014 Prophylactic immunotherapy 11/29/2014 Gastroenteritis 05/18/2014 Overview (01/07/2023): Diarrhea resolved. Stool culture obtained - unrevealing to date Nausea/vomiting seem pain related more than viral No fevers or chills Assessment & Plan (01/08/2025 9:48 PM EST): Symptomatic treatment Follow-up on C. difficile testing Right groin pain 05/18/2014 Overview (01/07/2023): See above under RLQ pain Diabetes mellitus, type II 04/29/2014 Overview (01/07/2023): Will hold metformin given DREW Hypertension 08/12/2013 Overview (01/07/2023): Will restart losartan today Encounters Date Type Department Care Team Description 04/16/2025 Orders Only [facility] [address] [facility] [place] [address] Demetria Quiroz MA Heart replaced by transplant ([facility]) 03/01/2025 Telephone [facility] [address] [place] [phone] Demetria Quiroz MA from Last 3 Months Immunizations Immunization Administration Dates Next Due DTP 02/09/2021 Influenza Whole 09/15/2014 Influenza, High Dose Seasona l, Preservative Free 09/02/2017,08/14/2016,08/04/2015 Influenza, High-dose Seasona l, Quadrivalent, Preservative Free 07/14/2022 Influenza, Unspecified 09/29/2020 Influenza, injectable, quadr ivalent, preservative free 07/05/2021,07/24/2020 Pfizer SARS-CoV-2 Vaccination 06/05/2022 Pneumococcal Conjugate PCV 13 08/07/2017, 015 Unspecified Sars-Cov-2 Vaccination 08/29/2021, Social History Tobacco Use Types Packs/Day Years Used Date Smoking Tobacco: Never Smokeless Tobacco: Never Tobacco Cessation:Counseling Given: Not Answered Alcohol Use Standard Drinks/Week Comments Not Currently 0 (1 standard drink = 0.6 oz pur e alcohol) [facility] Utilities Answer Date Recorded In the past 12 months has th e [employer], gas, oil, or water [employer] threatened to shut off services in your home? No 01/08/2025 Humiliation, Afraid, Rape, and Kick questionnair e Answer Date Recorded Within the last year, have y ou been afraid of your partner or ex-partner? No 01/08/2025 Emotionally Abused Not on file 01/08/2025 Physically Abused Not on file 01/08/2025 Sexually Abused Not on file 01/08/2025 Overall Financial Resource Strain (CARDIA) Answe r Date Recorded How hard is it for you to pa y for the very basics like food, housing, medical care, and heating? Not hard at all 01/08/2025 Transportation Answer Date Recorded In the past 12 months, has l ack of transportation kept you from medical appointments or from getting medications? No 01/08/2025 Lack of Transportation (Non-Medical) Not on file 01/08/2025 Housing Stability Vital Sign Answer Dilshad e Recorded In the last 12 months, was t here a time when you were not able to pay the mortgage or rent on time? No 01/08/2025 Number of Times Moved in the Last Year Not on fi le 01/08/2025 At any time in the past 12 m [facility], were you homeless or living in a fpc (including now)? No 01/08/2025 Hunger Vital Sign Answer Date Recorded Within the past 12 months, y ou worried that your food would run out before you got the money to buy more. Never true 01/08/20 25 Ran Out of Food in the Last Year Not on file 01/08/2025 Comments Unknown Sex and Gender Information Value Date Recorded Sex Assigned at Not on file Legal Sex Female 9:41 PM EDT Gender Identity Not on file Sexual Orientation Not on file Last Filed Vital Signs Vital Sign Reading Time Taken Comments Blood Pressure 129/80 02/05/2025 3:38 PM EST Pulse 82 02/05/2025 3:38 PM EST Temperature 36 C (96.8 F) 01/10/2025 7:34 PM EST Respiratory Rate 11 01/10/2025 7:34 PM EST Oxygen Saturation 98% 02/05/2025 3:38 PM EST Inhaled Oxygen Concentration - - Weight 44.5 kg (98 lb) 02/05/2025 3:38 PM EST Height 157.5 cm (5' 2 ) 02/05/2025 3:38 PM EST Body Mass Index 17.92 02/05/2025 3:38 PM EST Plan of Treatment Upcoming Encounters Date Type Department Care Team (Late st Contact Info) Description 05/31/2025 2:00 PM EDT Office Visit [facility] [address] [place] [address] Jameel Daly MD [address] [facility] [place] [phone] Health Maintenance Due Date Last Done Comments Diabetes: Hemoglobin A1C 1945 Medicare Annual Wellness (AWV) 1945 Diabetes: Retinopathy Screening 1954 Depression Screening 1956 Diabetes: Urine Protein Screening 1963 Zoster Vaccines (1 of 2) 1963 Adult Tetanus 1966 COVID-19 Vaccine ( season) 2024 06/05/2022, 06/05/2022, 08/29/2021, Additional history exists Influenza Vaccine (Season Ended) 2025 09/28/2023, 07/14/2022, 07/05/2021, Additional history exists Fall Risk Screening 01/10/2026 01/10/2025 Pneumococcal Vaccine: 50+ Years Completed 05/20/2023, 08/07/2017, 09/29/2015, Additional history exists HIB Vaccines Aged Out No longer eligi ble based on patient's age to complete this topic HPV Vaccines Aged Out No longer eligi ble based on patient's age to complete this topic IPV Vaccines Aged Out No longer eligi ble based on patient's age to complete this topic Meningococcal B Vaccine Aged Out No l onger eligible based on patient's age to complete this topic Meningococcal Vaccine Aged Out No serina julito eligible based on patient's age to complete this topic Rotavirus Vaccines Aged Out No longer eligible based on patient's age to complete this topic Insurance [employer] MEDICARE Advance Directives * Full Code (Latest Code Status on File) Date Activated Date Inactivated Comments 01/08/2025 9:36 PM 01/11/2025 1:23 AM Care Teams Plumbing Warehouse Helper Relationship Specialty Start Date End Date Vijay Davis MD [address] [facility] [address] [address] PCP - General 08/12/22
--- OUTSIDE RECORDS SUMMARY | 2025-05-25 08:22 | XMS_ITS | Clinical Summary ---
Author Organization [employer] [facility] Address [id number] [address] [place] [address] Care Team Providers Care Senior Developer Name Role Phone Fausto Garcia DO Primary Care Provider Juan Carlos lable Allergies Active Allergy Reactions Criticality Noted Date Comments Promethazine Hcl Hallucinations,Other (See Comments) High 05/10/2017 hallucinations hallucinations Medications alendronate (FOSAMAX) 70 mg tablet Take 70 mg by mouth every 7 days. 7 Active clonazePAM (KlonoPIN) 0.5 mg tablet Take 1 mg by mouth nightly as needed. Take 1-2 tabs by mouth at bedtime as needed 7 Active pancrelipase, Plh-Osen-Wvrs, (CREON) 24,000-76,000 -120,000 unit capsule,delayed release(DR/EC) Take 24,000 units of lipase by mouth 3 (three) times a day with meals. 7 Active magnesium oxide (MAG-OX) 400 mg tablet Take 800 mg by mouth 2 (two) times a day. 7 Active mycophenolate (CELLCEPT) 250 mg capsule Take 500 mg by mouth 2 (two) times a day. 7 Active pramipexole (MIRAPEX) 0.25 mg tablet Take 0.25 mg by mouth nightly. Active simvastatin (ZOCOR) 20 mg tablet Take 20 mg by mouth nightly. Active tacrolimus (PROGRAF) 1 mg capsule Take 1.5 mg by mouth 2 (two) times a day. Active CREON 24,000-76,000 -120,000 unit capsule,delayed release(DR/EC) take 3 capsules by mouth three times a day take WITH MEALS 0 7 Active aspirin 81 mg Take 81 mg by mouth daily. Active tacrolimus (PROGRAF) 1 mg capsule Take 1 mg by mouth nightly. Active cloNIDine (CATAPRES) 0.1 mg tablet Take 0.1 mg by mouth 3 (three) times a day as needed for high blood pressure. SBP>150 Active losartan (COZAAR) 50 mg tablet Take 75 mg by mouth daily. Active lifitegrast 5 % dropperette Instill 5 % to eye every 12 (twelve) hours. 1 drop to each eye Active buPROPion XL (WELLBUTRIN XL) 300 mg 24 hr tablet Take 300 mg by mouth daily. Active levothyroxine (SYNTHROID, LEVOTHROID) 100 MCG tablet Take 88 mcg by mouth before breakfast. Active loperamide (IMODIUM) 2 mg capsule Take 2 mg by mouth 4 (four) times a day as needed for diarrhea. Active LORazepam (ATIVAN) 0.5 mg tablet Take 0.5 mg by mouth 3 (three) times a day as needed for anxiety. Active traMADol (ULTRAM) 50 mg tablet Take 50 mg by mouth 3 (three) times a day as needed for pain. Take 1-2 tablets TID PRN pain Active FLUoxetine (PROzac) 20 mg capsule Take 20 mg by mouth daily. Active LORazepam (ATIVAN) 1 mg tabletIndication s:Anxiety Take 0.5 tablets (0.5 mg total) by mouth 3 (three) times a day as needed for anxiety for up to 5 doses. 5 tablet 8 Active Social History Tobacco Use Types Packs/Day Years Used Date Smoking Tobacco: Never Smokeless Tobacco: Never Alcohol Use Standard Drinks/Week Comments No 0 (1 standard drink = 0.6 oz pur e alcohol) Childcare Answer Date Recorded Childcare Unknown 05/13/2019 Employment Answer Date Recorded Employment Unknown 05/13/2019 Purpose - Life Answer Date Recorded Purpose and direction in life Unknown Comments Unknown Sex and Gender Information Value Date Recorded Sex Assigned at Not on file Legal Sex Female 11:49 AM EDT Gender Identity Not on file Sexual Orientation Not on file Last Filed Vital Signs Vital Sign Reading Time Taken Comments Blood Pressure 150/92 06/01/2018 7:00 PM EDT Pulse 87 06/01/2018 6:59 PM EDT Temperature 36.9 C (98.5 F) 06/01/2018 5:06 PM EDT Respiratory Rate 19 06/01/2018 6:59 PM EDT Oxygen Saturation 100% 06/01/2018 6:59 PM EDT Inhaled Oxygen Concentration - - Weight 54 kg (119 lb) 06/01/2018 5:06 PM EDT Height 157.5 cm (5' 2 ) 06/01/2018 5:06 PM EDT Body Mass Index 21.77 06/01/2018 5:06 PM EDT Plan of Treatment Health Maintenance Due Date Last Done Comments Depression Screening 1957 Tobacco Screening 1957 DTaP,Tdap and Td Vaccines (1 - Tdap) 1963 Zoster (Shingles) Vaccine (1 of 2) 1994 Fall Risk Screening 2009 Influenza Vaccine 08/02/2025 09/15/2014, , 08/19/2009, Additional history exists Medical Devices Not on file Insurance MEDICARE MEDICAID [place] Care Teams Senior Developer Relationship Specialty Start Date End Date Fausto Garcia DO PCP - General 05/10/17
--- OUTSIDE RECORDS SUMMARY | 2025-05-25 08:22 | XMS_ITS | Patient Health Record ---
Author Organization [facility] in [place] Address [address] [place] [address] Care Team Providers Care Basket Maker Name Role Phone Duyen Rogers Primary Care Provider [phone] King Davis [phone] Allergies Allergen (clinical drug ingredient) Drug/Non Drug Allergy documented on EMR Reaction Allergy Type Onset Date Status promethazine Phenergan anaphylaxis Drug Allergy Ac tive suvorexant Belsomra Unknown Drug Allergy Active Results Component Value Reference Range Notes US abdomen complete Reviewed date:09/28/2024 08:23:37 AM Interpretation: Performing Lab: Notes/Report: Source Facility: [place] [address] Ultrasound Report Signed Patient: SYLVIA HERRERA MR#: [id number] : 1945 Acct:[id number] Age/Sex: 78 / F ADM Date: 09/25/24 Loc: US Attending Dr: DUYEN ROGERS Ordering Physician: DUYEN ROGERS Date of Service: 09/25/24 Procedure(s): US abdomen complete Accession Number(s): [id number] cc: DUYEN ROGERS ; Tao Davis M.D. [place] [address] Patient Name: SYLVIA HERRERA MRN: [id number] date: 1945 Sex: F Assigned Patient Location: US Current Patient Location: Accession/Order Number: [id number] Exam Date: 09/25/2024 08:37 Report Date: 09/27/2024 05:50 At the request of: UDYEN ROGERS Procedure: US abdomen complete EXAMINATION: US abdomen complete HISTORY: Nausea R11.0 COMPARISON: No relevant comparison available. TECHNIQUE: High resolution sonographic examination of the abdomen was performed. FINDINGS: LIVER: Normal. Normal size and echotexture. No significant masses. Normal waveform and flow within the main portal vein, 36 cm/s. BILIARY: Cholecystectomy. No abnormal duct dilation. PANCREAS: Normal. No visible mass, abnormal atrophy, or ductal dilatation. SPLEEN: Normal. Normal size and echotexture. KIDNEYS: Several small benign-appearing cysts bilaterally. No mass or obstruction. AORTA/VASCULAR: Normal. No aneurysm. OTHER: Negative. US/US abdomen complete IMPRESSION: 1. No abnormal or suspicious findings to account for patient's symptoms. 2. Prior cholecystectomy. Electronically authenticated by: HAI JUAN Date: 09/27/2024 05:50 Dictated By: Hai Juan M.D. Signed By: 09/27/2453 DD/ TD/TT: Health Information Administrator: [place] [address] Ultrasound Report Signed Patient: SYLVIA HERRERA MR#: [id number] : 1945 Acct:[id number] Age/Sex: 78 / F ADM Date: 09/25/24 Loc: US Attending Dr: DUYEN ROGERS Ordering Physician: DUYEN ROGERS Date of Service: 09/25/24 Procedure(s): US abd omen complete Accession Number(s): [id number] cc: DUYEN ROGERS ; Tao Davis M.D. The [address] [address] Patient Name: SYLVIA HERRERA MRN: [id number] date: 1945 Sex: F Assigned Patient Location: Current Patient Location: Accession/Order Numb er: [id number] Exam Date: 08:37 Report Date: 09/27/2024 05:50 At the request of: DUYEN ROGERS Procedure: US abdome n complete EXAMINATION: US abdo men complete HISTORY: Nausea R11.0 COMPARISON: No relev ant comparison available. TECHNIQUE: High resolution sonographic examination of the abdomen was performed. FINDINGS: LIVER: Normal. Mayda l size and echotexture. No significant masses. Normal waveform and flow wi thin the main portal vein, 36 cm/s. BILIARY: Cholecystec rafaela. No abnormal duct dilation. PANCREAS: Normal. No visible mass, abnormal atrophy, or ductal dilatation. SPLEEN: Normal. Norm al size and echotexture. KIDNEYS: Several sma ll benign-appearing cysts bilaterally. No mass or obstruction. AORTA/VASCULAR: Norm al. No aneurysm. OTHER: Negative. U S/US abdomen complete IMPRESSION: 1. No abnormal or suspicious findings to account for patient's symptoms. 2. Prior cholecystectomy. Electronically authenticated by: HAI JUNA Date: 09/27/2024 05:50 Dictated By: Hai Juan M.D. Signed By: 09/27/24 0553 DD/ 0550 TD/TT: Health Information Administrator: BNP Reviewed date:06/18/2024 08:38:12 PM Interpretation: Performing Lab: Notes/Report: [facility] , NT Pro B Type Natriuretic Pept 1805.0 <=1800.0 pg/mL RESULTS CALLED TO VIOLETA CLINTON RN Performing Lab: see note ML - [facility] LB CBC AUTO DIFF Reviewed date:06/18/2024 08:38:12 PM Interpretation: Performing Lab: Notes/Report: [facility] , White Blood Count 7.0 4.0-11.0 10 3/uL Red Blood Count 3.80 4.20-5.40 10 6/uL Hemoglobin 10.9 12.0-16.0 g/dL Hematocrit 33.6 36.0-48.0 % Mean Corpuscular Volume 88.4 81.0-99.0 fL Mean Corpuscular Hemoglobin 28.7 26.7-34.0 pg Mean Corpuscular HGB Conc 32.4 29.9-35.2 g/dL Red Cell Distribution Width 12.5 11.0-15.0 % Platelet Count 178 150-450 10 3/uL Mean Platelet Volume 10.2 9.5-13.5 fL Neutrophils Percent Auto 72.0 43.0-75.0 % Lymphocytes Percent Auto 14.7 20.5-60.0 % Monocytes Percent Auto 11.4 1.7-12.0 % Eosinophils Percent Auto 1.4 0.9-7.0 % Basophils Percent Auto 0.1 0.2-2.0 % Immature Granulocytes Pct Auto 0.4 0.0-0.5 % Neutrophils Absolute Auto 5.0 1.4-6.5 10 3/uL Lymphocytes Absolute Auto 1.0 1.2-3.8 10 3/uL Monocytes Absolute Auto 0.8 0.3-0.8 10 3/uL Eosinophils Absolute Auto 0.1 0.0-0.7 10 3/uL Basophils Absolute Auto 0.0 0.0-0.1 10 3/uL Immature Granulocytes Abs Auto 0.03 0.00-0.03 10 3/uL Performing Lab: see note ML - [facility] FREE T3 Reviewed date:06/18/2024 08:38:12 PM Interpretation: Performing Lab: Notes/Report: [facility] , Free T3 1.73 2.18-3.98 pg/mL Performing Lab: see note ML - [facility] LB MAGNESIUM Reviewed date:06/18/2024 08:38:12 PM Interpretation: Performing Lab: Notes/Report: [facility] , Magnesium 1.1 1.8-2.4 mg/dL Performing Lab: see note ML - [facility] LB PHOSPHORUS Reviewed date:06/18/2024 08:38:12 PM Interpretation: Performing Lab: Notes/Report: [facility] , Phosphorus 3.0 2.6-4.7 mg/dL Performing Lab: see note ML - [facility] LB PROF 14(COMP METB) Reviewed date:06/18/2024 08:38:12 PM Interpretation: Performing Lab: Notes/Report: [facility] , Sodium 138 136-145 mmol/L Potassium 3.3 3.5-5.1 mmol/L Chloride 103 98-107 mmol/L Carbon Dioxide 24.9 21.0-32.0 mmol/L Anion Gap 13.4 Glucose 116 74-106 mg/dL Blood Urea Nitrogen 36.0 7.0-18.0 mg/dL Creatinine 1.70 0.55-1.02 mg/dL Estimated GFR ( Kasandra 35 >=60 Estimated GFR (Non- Ila 29 >=60 BUN Creatinine Ratio 21.2 Calcium 8.3 8.5-10.1 mg/dL Bilirubin Total 0.7 0.2-1.0 mg/dL Aspartate Amino Transferase 16 15-37 U/L Alanine Aminotransferase 20 14-59 U/L Alkaline Phosphatase 200 46-116 U/L Total Protein 5.7 6.4-8.2 g/dL Albumin Level 3.2 3.4-5.0 g/dL Globulin 2.5 Albumin Globulin Ratio 1.3 Performing Lab: see note ML - [facility] LB T4 Reviewed date:06/18/2024 08:38:12 PM Interpretation: Performing Lab: Notes/Report: [facility] , T4 Thyroxine 6.10 4.80-13.90 ug/dL Performing Lab: see note ML - [facility] TSH Reviewed date:06/18/2024 08:38:12 PM Interpretation: Performing Lab: Notes/Report: [facility] , Thyroid Stimulating Hormone 2.275 0.358-3.740 uIU/mL Performing Lab: see note ML - [facility] LB Troponin I High Sensitivity Reviewed date:06/18/2024 08:38:12 PM Interpretation: Performing Lab: Notes/Report: [facility] , Troponin I High Sensitivity 6.9 4.0-51.3 pg/mL CUT-OFF POINTS HAVE BEEN ESTABLISHED BASED ON THE FOURTH UNIVERSAL DEFINITION OF MYOCARDIAL INFARCTION. THE UPPER REFERENCE LIMIT (URL) OF TROPONIN, DEFINED THE 99TH PERCENTILE OF cTnI DISTRIBUTION IN A REFERENCE POPULATION, HAS BEEN CONFIRMED THE DECISION THRESHOLD FOR PR DIAGNOSIS. 99TH PERCENTILE = 51.4 PG/ML NOTE: HIGH-SENSITIVITY TROPONIN ASSAY IS NOT INTENDED TO BE USED IN ISOLATION BUT SHOULD BE INTERPRETED IN CONJUNCTION WITH OTHER DIAGNOSTIC AND CLINICAL INFORMATION. Performing Lab: see note ML - [facility] LB Urine Culture, Routine Reviewed date:07/03/2024 11:39:59 AM Interpretation: Performing Lab: Notes/Report: [facility] , Urine Culture, Routine See Below For Report Urine Culture, Routine Urine Culture, Routine Mixed urogenital boris Urine Culture, Routine Urine Culture, Routine 25,000-50,000 col lei forming units per mL Urine Culture, Routine Urine Culture, Routine Performed at: - [facility] [place] Urine Culture, Routine Urine Culture, Routine [address] [place], [place] [id number] Urine Culture, Routine Urine Culture, Routine Earring Maker: Ethan Novoa PhD, Phone: [phone] Urine Culture, Routine Performing Lab: see note LC - [facility] LB SEE REPORT - Emergency Telecommunications Dispatcher Id information not found for OBX-specific reproducer legend CA holter monitor 7-15 days Reviewed date:07/05/2024 04:38:43 PM Interpretation: Performing Lab: Notes/Report: Source Facility: [place] [address] Cardiology Report Signed Patient: SYLVIA HERRERA MR#: [id number] : 1945 Acct:[id number] Age/Sex: 78 / F ADM Date: 06/17/24 Loc: MS 218- Attending Dr: Tao Davis M.D. Ordering Physician: Tao Davis M.D. Date of Service: 06/18/24 Procedure(s): CA holter monitor 7-15 days Accession Number(s): [id number] cc: Tao Davis M.D. [facility] Test Date: 2024-07-02 Pat Name: SYLVIA HERRERA Department: Room: [facility] Gender: Female Handling Tech: : 1945 Requested By: TAO DAVIS Order Number: [id number] Reading MD: MAN HAIDER Interpretive Statements Predominant rhythm is sinus with average rate of 75 bpm Tachycardia - max rate of 160 bpm (PSVT) - 8 episodes of PSVT w/ longest duration of 8 beats - Longest episode of sinus tachycardia was 10min 40sec w/ rates between 106-111 bpm. Bradycardia - none Ventricular ectopy - 124 total, <1% - 122 PVC - 2 couplets Patient triggered events: 2 - associated w/ SOB Impression: Predominant rhythm is sinus with average rate of 75 bpm Fastest rate of 160 bpm (PSVT) and slowest rate of 62 bpm Longest episode of sinus tachycardia was 10min 40sec w/ rates between 106-111 bpm. 8 episodes of PSVT w/ longest duration of 8 beats. No atrial fibrillation No blocks or pauses Electronically Signed On 07-02-2024 22:09:37 EDT by MAN HAIDER Dictated By: Man Haider D.O. Signed By: 07/02/24220807/02/242208 DD/ 1024 TD/TT: Health Information Administrator: [place] [address] Cardiology Report Signed Patient: SYLVIA HERRERA MR#: [id number] : 1945 Acct:[id number] Age/Sex: 78 / F ADM Date: 06/17/24 Loc: MS 218-[address]: Ameena Davis M.D. Ordering Physician: Tao Davis M.D. Date of Service: 06/18/24 Procedure(s): CA hol ter monitor 7-15 days Accession Number(s): [id number] cc: Tao Davis M.D. [facility] Test Date: 2024-07-02 Pat Name: SYLVIA Mark Department: 41 Room: [facility] Gender: Female Handling Tech: : 1945 Requ ested By: TAO DAVIS Order Number: [id number] Reading MD: MAN HAIDER Interpretive Statements Predominant rhythm i s sinus with average rate of 75 bpm Tachycardia - max rate of 160 bp m (PSVT) - 8 episodes of PSVT w/ longest duration of 8 beats - Longest episode of sinus tachycardia was 10min 40sec w/ rates between 106-111 bpm. Bradycardia - none Ventricular ectopy - 124 total, <1% - 122 PVC - 2 couplets Patient triggered ev ents: 2 - associated w/ SOB Impression: Predominant rhythm i s sinus with average rate of 75 bpm Fastest rate of 160 bpm (PSVT) and slowest rate of 62 bpm Longest episode of s inus tachycardia was 10min 40sec w/ rates between 106-111 bpm. 8 episodes of PSVT w / longest duration of 8 beats. No atrial fibrillation No blocks or pauses Electronically Kelly d On 07-02-2024 22:09:37 EDT by MAN HAIDER Dictated By: Man Haider D.O. Signed By: 07/02/24220807/02/242208 DD/ 1024 TD/TT: Health Information Administrator: Campylobacter Culture Reviewed date:07/13/2024 04:10:06 PM Interpretation: Performing Lab: Notes/Report: [facility] , Campylobacter Culture See Below For Report Campylobacter Culture No Campylobacter species isolated. Performing Lab: see note - [facility] LB MAGNESIUM Reviewed date:07/24/2024 04:13:25 PM Interpretation: Performing Lab: Notes/Report: [facility] , Magnesium 1.3 1.8-2.4 mg/dL Performing Lab: see note - [facility] LB PROF 14(COMP METB) Reviewed date:07/24/2024 04:13:25 PM Interpretation: Performing Lab: Notes/Report: [facility] , Sodium 133 136-145 mmol/L Potassium 4.3 3.5-5.1 mmol/L Chloride 103 98-107 mmol/L Carbon Dioxide 19.7 21.0-32.0 mmol/L Anion Gap 14.6 Glucose 134 74-106 mg/dL Blood Urea Nitrogen 37.0 7.0-18.0 mg/dL Creatinine 2.37 0.55-1.02 mg/dL Estimated GFR ( Kasandra 24 >=60 Estimated GFR (Non- Ila 20 >=60 BUN Creatinine Ratio 15.6 Calcium 8.5 8.5-10.1 mg/dL Bilirubin Total 0.7 0.2-1.0 mg/dL Aspartate Amino Transferase 26 15-37 U/L Alanine Aminotransferase 31 14-59 U/L Alkaline Phosphatase 213 46-116 U/L Total Protein 5.9 6.4-8.2 g/dL Albumin Level 3.4 3.4-5.0 g/dL Globulin 2.5 Albumin Globulin Ratio 1.4 Performing Lab: see note ML - [facility] LB Urine Culture, Routine Reviewed date:08/14/2024 04:18:18 PM Interpretation: Performing Lab: Notes/Report: [facility] , Urine Culture, Routine See Below For Report Urine Culture, Routine Urine Culture, Routine Mixed urogenital boris Urine Culture, Routine Urine Culture, Routine 25,000-50,000 col lei forming units per mL Urine Culture, Routine Urine Culture, Routine Performed at: [facility] Urine Culture, Routine Urine Culture, Routine [address] [place] [id number] Urine Culture, Routine Urine Culture, Routine Earring Maker: Ethan Novoa PhD, Phone: [phone] Urine Culture, Routine Performing Lab: see note - [facility] LB SEE REPORT - Emergency Telecommunications Dispatcher Id information not found for OBX-specific reproducer legend Tacrolimus ([id number]), Blood Reviewed date:01/05/2025 02:20:11 PM Interpretation: Performing Lab: Notes/Report: [facility] , Tacrolimus ([id number]), Blood 7.3 2.0-20.0 ng/mL This test was developed and its performance characteristics determined by [facility]. It has not been cleared or approved by the Food and Drug Administration. Trough (immediately following transplant) 15.0 Trough (steady state, 2 weeks or more after transplant): 3.0 - 8.0 Performed by LC-MS/MS technology. Effective January 02, 2025 the reference interval for Tacrolimus will be updated to: 5.0 - 20.0 ng/mL Performed at: [address] [id number] Earring Maker: Erica Roa MD, Phone: [phone] Performing Lab: see note - [facility] LB LIPASE Reviewed date:01/05/2025 02:20:11 PM Interpretation: Performing Lab: Notes/Report: [facility] , Lipase 16.0 16.0-77.0 U/L Performing Lab: see note ML - [facility] LB PROF 14(COMP METB) Reviewed date:01/05/2025 02:20:11 PM Interpretation: Performing Lab: Notes/Report: [facility] , Sodium 138 136-145 mmol/L Potassium 3.2 3.5-5.1 mmol/L Chloride 104 98-107 mmol/L Carbon Dioxide 10.9 21.0-32.0 mmol/L Anion Gap 26.3 Glucose 136 74-106 mg/dL Blood Urea Nitrogen 116.0 7.0-18.0 mg/dL RESULTS CALLED TO HATTIE MERIDA RN @BY Quin Dawson at 2210 Creatinine 5.97 0.55-1.02 mg/dL RESULTS CALLED TO HATTIE MERIDA RN @BY Quin Dawson at 2219 Estimated GFR ( Kasandra 8 >=60 mL/min/1.73m 2 Estimated GFR (Non- Ila 7 >=60 mL/min/1.73m 2 BUN Creatinine Ratio 19.4 Calcium 6.8 8.5-10.1 mg/dL Bilirubin Total 0.5 0.2-1.0 mg/dL Aspartate Amino Transferase 33 15-37 U/L Alanine Aminotransferase 49 14-59 U/L Alkaline Phosphatase 310 46-116 U/L Total Protein 6.7 6.4-8.2 g/dL Albumin Level 3.4 3.4-5.0 g/dL Globulin 3.3 Albumin Globulin Ratio 1.0 Performing Lab: see note - [facility] Troponin I High Sensitivity Reviewed date:01/05/2025 02:20:11 PM Interpretation: Performing Lab: Notes/Report: [facility] , Troponin I High Sensitivity 9.8 4.0-51.3 pg/mL CUT-OFF POINTS HAVE BEEN ESTABLISHED BASED ON THE FOURTH UNIVERSAL DEFINITION OF MYOCARDIAL INFARCTION. THE UPPER REFERENCE LIMIT (URL) OF TROPONIN, DEFINED THE 99TH PERCENTILE OF cTnI DISTRIBUTION IN A REFERENCE POPULATION, HAS BEEN CONFIRMED THE DECISION THRESHOLD FOR PR DIAGNOSIS. 99TH PERCENTILE = 51.4 PG/ML NOTE: HIGH-SENSITIVITY TROPONIN ASSAY IS NOT INTENDED TO BE USED IN ISOLATION BUT SHOULD BE INTERPRETED IN CONJUNCTION WITH OTHER DIAGNOSTIC AND CLINICAL INFORMATION. Performing Lab: see note - [facility] XR chest 1V Reviewed date:01/05/2025 02:20:11 PM Interpretation: Performing Lab: Notes/Report: Source Facility: [facility]-[address] [place] [address] [place] [address] XRay Report Signed Patient: SYLVIA HERRERA MR#: [id number] : 1945 Acct:[id number] Age/Sex: 79 / F ADM Date: 01/04/25 Loc: ER Attending Dr: Ordering Physician: Elisa Ghosh Date of Service: 01/04/25 Procedure(s): XR chest 1V Accession Number(s): [id number] cc: Tao Davis M.D.; Elisa Ghosh [place] [id number] Patient Name: SYLVIA HERRERA MRN: [facility]:[id number] date: 1945 Sex: F Assigned Patient Location: ED.MAIN Current Patient Location: ER Accession/Order Number: [id number] Exam Date: 01/04/2025 21:55 Report Date: 01/04/2025 22:16 At the request of: ELISA GHOSH Procedure: XR chest 1V EXAM: XR chest 1V HISTORY: weakness COMPARISON: 08/02/2024. TECHNIQUE: Chest portable upright one view FINDINGS: Lungs are mildly hyperinflated. Patchy opacity in the lingula and left lower lobe. Right lung is clear. No effusion. No pneumothorax. There are median sternotomy changes and surgical clips in the mediastinum. Heart size within normal limits. Pulmonary vasculature is normal. There are cholecystomy clips. XR/XR chest 1V IMPRESSION: 1. Small vague area of patchy airspace disease reflecting atelectasis or pneumonitis in the lingula/left lower lobe. Correlate with symptoms and recommend short interval follow-up to resolution. 2. Clear right lung. 3. Median sternotomy with surgical clips in the mediastinum, normal heart size. Electronically authenticated by: JULIETTE MEDINA Date: 01/04/2025 22:16 Dictated By: Juliette Medina M.D. Signed By: 01/04/252218 DD/ 15 TD/TT: Health Information Administrator: [place] [address] XRay Report Signed Patient: SYLVIA HERRERA MR#: [id number] : 1945 Acct:[id number] Age/Sex: 79 / F ADM Date: 01/04/25 Loc: ER Attending Dr: Ordering Physician: Elisa Ghsoh Date of Service: 01/04/25 Procedure(s): XR chest 1V Accession Number(s): [id number] cc: Tao Davis M.D. ; Elisa Ghosh [place] [address] Patient Name: SYLVIA HERRERA MRN: [facility]:[id number] date: 1945 Sex: F Assigned Patient Location: ED.MAIN Current Patient Loca tion: ER Accession/Order Numb er: [id number] Exam Date: 01/04/2025 21:55 Report Date: 01/04/2025 22:16 At the request of: ELISA MARKER Procedure: XR chest 1V EXAM: XR chest 1V HISTORY: weakness COMPARISON: 08/02/2024. TECHNIQUE: Chest por table upright one view FINDINGS: Lungs are mildly hyperinflated. Patchy opacity in the lingula and left lower lobe. Rig ht lung is clear. No effusion. No pneumothorax. There are median sternotomy ch anges and surgical clips in the mediastinum. Heart size within normal limits . Pulmonary vasculature is normal. There are cholecystomy clips. X R/XR chest 1V IMPRESSION: 1. Small vague area of patchy airspace disease reflecting atelectasis or pneumonitis in the lingula/left lower lobe. Correlate with symptoms and recommend short inte rval follow-up to resolution. 2. Clear right lung. 3. Median sternotomy with surgical clips in the mediastinum, normal heart size. Electronically authenticated by: JULIETTE MEDINA Date: 01/04/2025 22:16 Dictated By: Maria Elena Medina M.D. Signed By: 01/04/259 DD/ 15 TD/TT: Health Information Administrator: Blood Culture 1 Reviewed date:01/10/2025 05:23:20 PM Interpretation: Performing Lab: Notes/Report: [facility] , Blood Culture 1 See Below For Report Blood Culture 1 NG5D NO GROWTH AT 5 DAYS. Performing Lab: see note ML - [facility] LB Blood Culture 2 Reviewed date:01/10/2025 05:23:20 PM Interpretation: Performing Lab: Notes/Report: [facility] , Blood Culture 2 See Below For Report Blood Culture 2 NG5D NO GROWTH AT 5 DAYS. Performing Lab: see note ML - [facility] LB UA RANDOM W or MICROSCOPIC Reviewed date:01/05/2025 02:20:10 PM Interpretation: Performing Lab: Notes/Report: [facility] , Color Urine LT. YELLOW YELLOW Clarity Urine CLEAR CLEAR Specific [place] Urine 1.015 1.005-1.025 pH Urine 5.5 5.0-9.0 Protein Urine 30 NEG/TRACE mg/dL Glucose Urine UA NEGATIVE NEGATIVE mg/dL Bilirubin Urine NEGATIVE NEGATIVE Ketones Urine NEGATIVE NEGATIVE mg/dL Blood Urine SMALL NEGATIVE Nitrite Urine NEGATIVE NEGATIVE Urobilinogen Urine 0.2 0.2-1.0 EU/dL Leukocyte Esterase Urine LARGE NEGATIVE WBC Urine 20-50 NONE SEEN #/HPF RBC Urine 2-5 0-2 #/HPF Bacteria Urine SMALL NONE SEEN #/HPF Mucus Urine NONE SEEN NONE SEEN Squamous Epithelial Cell Urine FEW NONE/RARE #/LPF Crystals Seen? None Seen None Seen #/HPF Cast Seen? NONE SEEN NONE SEEN #/LPF Urine Culture Indicated YES Performing Lab: see note ML - [facility] LB Gram Stain Evaluation Reviewed date:01/11/2025 07:16:14 PM Interpretation: Performing Lab: Notes/Report: [facility] , Gram Stain Evaluation See Below For Report Gram Stain Evaluation This specimen is of good quality and is acceptable for routine Gram Stain Evaluation bacterial culture. Gram Stain Evaluation This specimen is of good quality and is acceptable for routine Performing Lab: see note LC - [facility] LB Lower Respiratory Culture Reviewed date:01/11/2025 07:16:14 PM Interpretation: Performing Lab: Notes/Report: [facility] , Lower Respiratory Culture See Below For Report Lower Respiratory Culture WILL FOLLOW O:MRSA Isolated Organism: 8.1 Antibiotic Interpretation ROWAN Status Ciprofloxacin Ciprofloxacin R F Erythromycin Erythromycin R F Gentamicin Gentamicin S F Levofloxacin Levofloxacin R F Linezolid Linezolid S F Oxacillin Oxacillin R F Penicillin Penicillin R F Rifampin Rifampin S F Tetracycline Tetracycline S F Trimethoprim/Sulfamet hoxazole Trimethoprim/Sulfamet hoxazole S F Vancomycin Vancomycin S F Clindamycin Clindamycin R F Lower Respiratory Culture Growth observed. Further testing to rule out possible pathogen(s) Lower Respiratory Culture WILL FOLLOW O:MRSA Isolated Organism: 8.1 Antibiotic Interpretation ROWAN Status Ciprofloxacin Ciprofloxacin R F Erythromycin Erythromycin R F Gentamicin Gentamicin S F Levofloxacin Levofloxacin R F Linezolid Linezolid S F Oxacillin Oxacillin R F Penicillin Penicillin R F Rifampin Rifampin S F Tetracycline Tetracycline S F Trimethoprim/Sulfamet hoxazole Trimethoprim/Sulfamet hoxazole S F Vancomycin Vancomycin S F Clindamycin Clindamycin R F Lower Respiratory Culture is in progress. Lower Respiratory Culture WILL FOLLOW O:MRSA Isolated Organism: 8.1 Antibiotic Interpretation ROWAN Status Ciprofloxacin Ciprofloxacin R F Erythromycin Erythromycin R F Gentamicin Gentamicin S F Levofloxacin Levofloxacin R F Linezolid Linezolid S F Oxacillin Oxacillin R F Penicillin Penicillin R F Rifampin Rifampin S F Tetracycline Tetracycline S F Trimethoprim/Sulfamet hoxazole Trimethoprim/Sulfamet hoxazole S F Vancomycin Vancomycin S F Clindamycin Clindamycin R F Lower Respiratory Culture Lower Respiratory Culture WILL FOLLOW O:MRSA Isolated Organism: 8.1 Antibiotic Interpretation ROWAN Status Ciprofloxacin Ciprofloxacin R F Erythromycin Erythromycin R F Gentamicin Gentamicin S F Levofloxacin Levofloxacin R F Linezolid Linezolid S F Oxacillin Oxacillin R F Penicillin Penicillin R F Rifampin Rifampin S F Tetracycline Tetracycline S F Trimethoprim/Sulfamet hoxazole Trimethoprim/Sulfamet hoxazole S F Vancomycin Vancomycin S F Clindamycin Clindamycin R F Lower Respiratory Culture Routine respiratory boris Lower Respiratory Culture WILL FOLLOW O:MRSA Isolated Organism: 8.1 Antibiotic Interpretation ROWAN Status Ciprofloxacin Ciprofloxacin R F Erythromycin Erythromycin R F Gentamicin Gentamicin S F Levofloxacin Levofloxacin R F Linezolid Linezolid S F Oxacillin Oxacillin R F Penicillin Penicillin R F Rifampin Rifampin S F Tetracycline Tetracycline S F Trimethoprim/Sulfamet hoxazole Trimethoprim/Sulfamet hoxazole S F Vancomycin Vancomycin S F Clindamycin Clindamycin R F Lower Respiratory Culture Heavy growth Lower Respiratory Culture WILL FOLLOW O:MRSA Isolated Organism: 8.1 Antibiotic Interpretation ROWAN Status Ciprofloxacin Ciprofloxacin R F Erythromycin Erythromycin R F Gentamicin Gentamicin S F Levofloxacin Levofloxacin R F Linezolid Linezolid S F Oxacillin Oxacillin R F Penicillin Penicillin R F Rifampin Rifampin S F Tetracycline Tetracycline S F Trimethoprim/Sulfamet hoxazole Trimethoprim/Sulfamet hoxazole S F Vancomycin Vancomycin S F Clindamycin Clindamycin R F Lower Respiratory Culture Organism: Methicillin Resis Staph Aureus : Lower Respiratory Culture WILL FOLLOW O:MRSA Isolated Organism: 8.1 Antibiotic Interpretation ROWAN Status Ciprofloxacin Ciprofloxacin R F Erythromycin Erythromycin R F Gentamicin Gentamicin S F Levofloxacin Levofloxacin R F Linezolid Linezolid S F Oxacillin Oxacillin R F Penicillin Penicillin R F Rifampin Rifampin S F Tetracycline Tetracycline S F Trimethoprim/Sulfamet hoxazole Trimethoprim/Sulfamet hoxazole S F Vancomycin Vancomycin S F Clindamycin Clindamycin R F Lower Respiratory Culture *ABNORMAL* Lower Respiratory Culture WILL FOLLOW O:MRSA Isolated Organism: 8.1 Antibiotic Interpretation ROWAN Status Ciprofloxacin Ciprofloxacin R F Erythromycin Erythromycin R F Gentamicin Gentamicin S F Levofloxacin Levofloxacin R F Linezolid Linezolid S F Oxacillin Oxacillin R F Penicillin Penicillin R F Rifampin Rifampin S F Tetracycline Tetracycline S F Trimethoprim/Sulfamet hoxazole Trimethoprim/Sulfamet hoxazole S F Vancomycin Vancomycin S F Clindamycin Clindamycin R F Lower Respiratory Culture Methicillin - resistant Lower Respiratory Culture WILL FOLLOW O:MRSA Isolated Organism: 8.1 Antibiotic Interpretation ROWAN Status Ciprofloxacin Ciprofloxacin R F Erythromycin Erythromycin R F Gentamicin Gentamicin S F Levofloxacin Levofloxacin R F Linezolid Linezolid S F Oxacillin Oxacillin R F Penicillin Penicillin R F Rifampin Rifampin S F Tetracycline Tetracycline S F Trimethoprim/Sulfamet hoxazole Trimethoprim/Sulfamet hoxazole S F Vancomycin Vancomycin S F Clindamycin Clindamycin R F Lower Respiratory Culture Based on resistance to oxacillin this isolate would be Lower Respiratory Culture WILL FOLLOW O:MRSA Isolated Organism: 8.1 Antibiotic Interpretation ROWAN Status Ciprofloxacin Ciprofloxacin R F Erythromycin Erythromycin R F Gentamicin Gentamicin S F Levofloxacin Levofloxacin R F Linezolid Linezolid S F Oxacillin Oxacillin R F Penicillin Penicillin R F Rifampin Rifampin S F Tetracycline Tetracycline S F Trimethoprim/Sulfamet hoxazole Trimethoprim/Sulfamet hoxazole S F Vancomycin Vancomycin S F Clindamycin Clindamycin R F Lower Respiratory Culture resistant to all currently available beta-lactam Lower Respiratory Culture WILL FOLLOW O:MRSA Isolated Organism: 8.1 Antibiotic Interpretation ROWAN Status Ciprofloxacin Ciprofloxacin R F Erythromycin Erythromycin R F Gentamicin Gentamicin S F Levofloxacin Levofloxacin R F Linezolid Linezolid S F Oxacillin Oxacillin R F Penicillin Penicillin R F Rifampin Rifampin S F Tetracycline Tetracycline S F Trimethoprim/Sulfamet hoxazole Trimethoprim/Sulfamet hoxazole S F Vancomycin Vancomycin S F Clindamycin Clindamycin R F Lower Respiratory Culture antimicrobial agents, with the exception of the newer Lower Respiratory Culture WILL FOLLOW O:MRSA Isolated Organism: 8.1 Antibiotic Interpretation ROWAN Status Ciprofloxacin Ciprofloxacin R F Erythromycin Erythromycin R F Gentamicin Gentamicin S F Levofloxacin Levofloxacin R F Linezolid Linezolid S F Oxacillin Oxacillin R F Penicillin Penicillin R F Rifampin Rifampin S F Tetracycline Tetracycline S F Trimethoprim/Sulfamet hoxazole Trimethoprim/Sulfamet hoxazole S F Vancomycin Vancomycin S F Clindamycin Clindamycin R F Lower Respiratory Culture cephalosporins with anti-MRSA activity, such as Lower Respiratory Culture WILL FOLLOW O:MRSA Isolated Organism: 8.1 Antibiotic Interpretation ROWAN Status Ciprofloxacin Ciprofloxacin R F Erythromycin Erythromycin R F Gentamicin Gentamicin S F Levofloxacin Levofloxacin R F Linezolid Linezolid S F Oxacillin Oxacillin R F Penicillin Penicillin R F Rifampin Rifampin S F Tetracycline Tetracycline S F Trimethoprim/Sulfamet hoxazole Trimethoprim/Sulfamet hoxazole S F Vancomycin Vancomycin S F Clindamycin Clindamycin R F Lower Respiratory Culture Ceftaroline Lower Respiratory Culture WILL FOLLOW O:MRSA Isolated Organism: 8.1 Antibiotic Interpretation ROWAN Status Ciprofloxacin Ciprofloxacin R F Erythromycin Erythromycin R F Gentamicin Gentamicin S F Levofloxacin Levofloxacin R F Linezolid Linezolid S F Oxacillin Oxacillin R F Penicillin Penicillin R F Rifampin Rifampin S F Tetracycline Tetracycline S F Trimethoprim/Sulfamet hoxazole Trimethoprim/Sulfamet hoxazole S F Vancomycin Vancomycin S F Clindamycin Clindamycin R F Lower Respiratory Culture Heavy growth Lower Respiratory Culture WILL FOLLOW O:MRSA Isolated Organism: 8.1 Antibiotic Interpretation ROWAN Status Ciprofloxacin Ciprofloxacin R F Erythromycin Erythromycin R F Gentamicin Gentamicin S F Levofloxacin Levofloxacin R F Linezolid Linezolid S F Oxacillin Oxacillin R F Penicillin Penicillin R F Rifampin Rifampin S F Tetracycline Tetracycline S F Trimethoprim/Sulfamet hoxazole Trimethoprim/Sulfamet hoxazole S F Vancomycin Vancomycin S F Clindamycin Clindamycin R F Lower Respiratory Culture Lower Respiratory Culture WILL FOLLOW O:MRSA Isolated Organism: 8.1 Antibiotic Interpretation ROWAN Status Ciprofloxacin Ciprofloxacin R F Erythromycin Erythromycin R F Gentamicin Gentamicin S F Levofloxacin Levofloxacin R F Linezolid Linezolid S F Oxacillin Oxacillin R F Penicillin Penicillin R F Rifampin Rifampin S F Tetracycline Tetracycline S F Trimethoprim/Sulfamet hoxazole Trimethoprim/Sulfamet hoxazole S F Vancomycin Vancomycin S F Clindamycin Clindamycin R F Lower Respiratory Culture Routine respiratory boris Lower Respiratory Culture WILL FOLLOW O:MRSA Isolated Organism: 8.1 Antibiotic Interpretation ROWAN Status Ciprofloxacin Ciprofloxacin R F Erythromycin Erythromycin R F Gentamicin Gentamicin S F Levofloxacin Levofloxacin R F Linezolid Linezolid S F Oxacillin Oxacillin R F Penicillin Penicillin R F Rifampin Rifampin S F Tetracycline Tetracycline S F Trimethoprim/Sulfamet hoxazole Trimethoprim/Sulfamet hoxazole S F Vancomycin Vancomycin S F Clindamycin Clindamycin R F Lower Respiratory Culture Heavy growth Lower Respiratory Culture WILL FOLLOW O:MRSA Isolated Organism: 8.1 Antibiotic Interpretation ROWAN Status Ciprofloxacin Ciprofloxacin R F Erythromycin Erythromycin R F Gentamicin Gentamicin S F Levofloxacin Levofloxacin R F Linezolid Linezolid S F Oxacillin Oxacillin R F Penicillin Penicillin R F Rifampin Rifampin S F Tetracycline Tetracycline S F Trimethoprim/Sulfamet hoxazole Trimethoprim/Sulfamet hoxazole S F Vancomycin Vancomycin S F Clindamycin Clindamycin R F Lower Respiratory Culture Methicillin Resis Staph Aureus Lower Respiratory Culture WILL FOLLOW O:MRSA Isolated Organism: 8.1 Antibiotic Interpretation ROWAN Status Ciprofloxacin Ciprofloxacin R F Erythromycin Erythromycin R F Gentamicin Gentamicin S F Levofloxacin Levofloxacin R F Linezolid Linezolid S F Oxacillin Oxacillin R F Penicillin Penicillin R F Rifampin Rifampin S F Tetracycline Tetracycline S F Trimethoprim/Sulfamet hoxazole Trimethoprim/Sulfamet hoxazole S F Vancomycin Vancomycin S F Clindamycin Clindamycin R F Lower Respiratory Culture See Below For Report Lower Respiratory Culture WILL FOLLOW O:MRSA Isolated Organism: 8.1 Antibiotic Interpretation ROWAN Status Ciprofloxacin Ciprofloxacin R F Erythromycin Erythromycin R F Gentamicin Gentamicin S F Levofloxacin Levofloxacin R F Linezolid Linezolid S F Oxacillin Oxacillin R F Penicillin Penicillin R F Rifampin Rifampin S F Tetracycline Tetracycline S F Trimethoprim/Sulfamet hoxazole Trimethoprim/Sulfamet hoxazole S F Vancomycin Vancomycin S F Clindamycin Clindamycin R F Lower Respiratory Culture Performed at: [facility] Lower Respiratory Culture WILL FOLLOW O:MRSA Isolated Organism: 8.1 Antibiotic Interpretation ROWAN Status Ciprofloxacin Ciprofloxacin R F Erythromycin Erythromycin R F Gentamicin Gentamicin S F Levofloxacin Levofloxacin R F Linezolid Linezolid S F Oxacillin Oxacillin R F Penicillin Penicillin R F Rifampin Rifampin S F Tetracycline Tetracycline S F Trimethoprim/Sulfamet hoxazole Trimethoprim/Sulfamet hoxazole S F Vancomycin Vancomycin S F Clindamycin Clindamycin R F Lower Respiratory Culture [address] [place], [place] [id number] Lower Respiratory Culture WILL FOLLOW O:MRSA Isolated Organism: 8.1 Antibiotic Interpretation ROWAN Status Ciprofloxacin Ciprofloxacin R F Erythromycin Erythromycin R F Gentamicin Gentamicin S F Levofloxacin Levofloxacin R F Linezolid Linezolid S F Oxacillin Oxacillin R F Penicillin Penicillin R F Rifampin Rifampin S F Tetracycline Tetracycline S F Trimethoprim/Sulfamet hoxazole Trimethoprim/Sulfamet hoxazole S F Vancomycin Vancomycin S F Clindamycin Clindamycin R F Lower Respiratory Culture Earring Maker: Ryan Novoa PhD, Phone: [phone] Lower Respiratory Culture WILL FOLLOW O:MRSA Isolated Organism: 8.1 Antibiotic Interpretation ROWAN Status Ciprofloxacin Ciprofloxacin R F Erythromycin Erythromycin R F Gentamicin Gentamicin S F Levofloxacin Levofloxacin R F Linezolid Linezolid S F Oxacillin Oxacillin R F Penicillin Penicillin R F Rifampin Rifampin S F Tetracycline Tetracycline S F Trimethoprim/Sulfamet hoxazole Trimethoprim/Sulfamet hoxazole S F Vancomycin Vancomycin S F Clindamycin Clindamycin R F Lower Respiratory Culture See Below For Report Lower Respiratory Culture WILL FOLLOW O:MRSA Isolated Organism: 8.1 Antibiotic Interpretation ROWAN Status Ciprofloxacin Ciprofloxacin R F Erythromycin Erythromycin R F Gentamicin Gentamicin S F Levofloxacin Levofloxacin R F Linezolid Linezolid S F Oxacillin Oxacillin R F Penicillin Penicillin R F Rifampin Rifampin S F Tetracycline Tetracycline S F Trimethoprim/Sulfamet hoxazole Trimethoprim/Sulfamet hoxazole S F Vancomycin Vancomycin S F Clindamycin Clindamycin R F Lower Respiratory Culture See Below For Report Lower Respiratory Culture WILL FOLLOW O:MRSA Isolated Organism: 8.1 Antibiotic Interpretation ROWAN Status Ciprofloxacin Ciprofloxacin R F Erythromycin Erythromycin R F Gentamicin Gentamicin S F Levofloxacin Levofloxacin R F Linezolid Linezolid S F Oxacillin Oxacillin R F Penicillin Penicillin R F Rifampin Rifampin S F Tetracycline Tetracycline S F Trimethoprim/Sulfamet hoxazole Trimethoprim/Sulfamet hoxazole S F Vancomycin Vancomycin S F Clindamycin Clindamycin R F Lower Respiratory Culture See Below For Report Lower Respiratory Culture WILL FOLLOW O:MRSA Isolated Organism: 8.1 Antibiotic Interpretation ROWAN Status Ciprofloxacin Ciprofloxacin R F Erythromycin Erythromycin R F Gentamicin Gentamicin S F Levofloxacin Levofloxacin R F Linezolid Linezolid S F Oxacillin Oxacillin R F Penicillin Penicillin R F Rifampin Rifampin S F Tetracycline Tetracycline S F Trimethoprim/Sulfamet hoxazole Trimethoprim/Sulfamet hoxazole S F Vancomycin Vancomycin S F Clindamycin Clindamycin R F Lower Respiratory Culture See Below For Report Lower Respiratory Culture WILL FOLLOW O:MRSA Isolated Organism: 8.1 Antibiotic Interpretation ROWAN Status Ciprofloxacin Ciprofloxacin R F Erythromycin Erythromycin R F Gentamicin Gentamicin S F Levofloxacin Levofloxacin R F Linezolid Linezolid S F Oxacillin Oxacillin R F Penicillin Penicillin R F Rifampin Rifampin S F Tetracycline Tetracycline S F Trimethoprim/Sulfamet hoxazole Trimethoprim/Sulfamet hoxazole S F Vancomycin Vancomycin S F Clindamycin Clindamycin R F Lower Respiratory Culture See Below For Report Lower Respiratory Culture WILL FOLLOW O:MRSA Isolated Organism: 8.1 Antibiotic Interpretation ROWAN Status Ciprofloxacin Ciprofloxacin R F Erythromycin Erythromycin R F Gentamicin Gentamicin S F Levofloxacin Levofloxacin R F Linezolid Linezolid S F Oxacillin Oxacillin R F Penicillin Penicillin R F Rifampin Rifampin S F Tetracycline Tetracycline S F Trimethoprim/Sulfamet hoxazole Trimethoprim/Sulfamet hoxazole S F Vancomycin Vancomycin S F Clindamycin Clindamycin R F Lower Respiratory Culture See Below For Report Lower Respiratory Culture WILL FOLLOW O:MRSA Isolated Organism: 8.1 Antibiotic Interpretation ROWAN Status Ciprofloxacin Ciprofloxacin R F Erythromycin Erythromycin R F Gentamicin Gentamicin S F Levofloxacin Levofloxacin R F Linezolid Linezolid S F Oxacillin Oxacillin R F Penicillin Penicillin R F Rifampin Rifampin S F Tetracycline Tetracycline S F Trimethoprim/Sulfamet hoxazole Trimethoprim/Sulfamet hoxazole S F Vancomycin Vancomycin S F Clindamycin Clindamycin R F Lower Respiratory Culture See Below For Report Lower Respiratory Culture WILL FOLLOW O:MRSA Isolated Organism: 8.1 Antibiotic Interpretation ROWAN Status Ciprofloxacin Ciprofloxacin R F Erythromycin Erythromycin R F Gentamicin Gentamicin S F Levofloxacin Levofloxacin R F Linezolid Linezolid S F Oxacillin Oxacillin R F Penicillin Penicillin R F Rifampin Rifampin S F Tetracycline Tetracycline S F Trimethoprim/Sulfamet hoxazole Trimethoprim/Sulfamet hoxazole S F Vancomycin Vancomycin S F Clindamycin Clindamycin R F Lower Respiratory Culture See Below For Report Lower Respiratory Culture WILL FOLLOW O:MRSA Isolated Organism: 8.1 Antibiotic Interpretation ROWAN Status Ciprofloxacin Ciprofloxacin R F Erythromycin Erythromycin R F Gentamicin Gentamicin S F Levofloxacin Levofloxacin R F Linezolid Linezolid S F Oxacillin Oxacillin R F Penicillin Penicillin R F Rifampin Rifampin S F Tetracycline Tetracycline S F Trimethoprim/Sulfamet hoxazole Trimethoprim/Sulfamet hoxazole S F Vancomycin Vancomycin S F Clindamycin Clindamycin R F Lower Respiratory Culture See Below For Report Lower Respiratory Culture WILL FOLLOW O:MRSA Isolated Organism: 8.1 Antibiotic Interpretation ROWAN Status Ciprofloxacin Ciprofloxacin R F Erythromycin Erythromycin R F Gentamicin Gentamicin S F Levofloxacin Levofloxacin R F Linezolid Linezolid S F Oxacillin Oxacillin R F Penicillin Penicillin R F Rifampin Rifampin S F Tetracycline Tetracycline S F Trimethoprim/Sulfamet hoxazole Trimethoprim/Sulfamet hoxazole S F Vancomycin Vancomycin S F Clindamycin Clindamycin R F Lower Respiratory Culture See Below For Report Lower Respiratory Culture WILL FOLLOW O:MRSA Isolated Organism: 8.1 Antibiotic Interpretation ROWAN Status Ciprofloxacin Ciprofloxacin R F Erythromycin Erythromycin R F Gentamicin Gentamicin S F Levofloxacin Levofloxacin R F Linezolid Linezolid S F Oxacillin Oxacillin R F Penicillin Penicillin R F Rifampin Rifampin S F Tetracycline Tetracycline S F Trimethoprim/Sulfamet hoxazole Trimethoprim/Sulfamet hoxazole S F Vancomycin Vancomycin S F Clindamycin Clindamycin R F Lower Respiratory Culture See Below For Report Lower Respiratory Culture WILL FOLLOW O:MRSA Isolated Organism: 8.1 Antibiotic Interpretation ROWAN Status Ciprofloxacin Ciprofloxacin R F Erythromycin Erythromycin R F Gentamicin Gentamicin S F Levofloxacin Levofloxacin R F Linezolid Linezolid S F Oxacillin Oxacillin R F Penicillin Penicillin R F Rifampin Rifampin S F Tetracycline Tetracycline S F Trimethoprim/Sulfamet hoxazole Trimethoprim/Sulfamet hoxazole S F Vancomycin Vancomycin S F Clindamycin Clindamycin R F Lower Respiratory Culture See Below For Report Lower Respiratory Culture WILL FOLLOW O:MRSA Isolated Organism: 8.1 Antibiotic Interpretation ROWAN Status Ciprofloxacin Ciprofloxacin R F Erythromycin Erythromycin R F Gentamicin Gentamicin S F Levofloxacin Levofloxacin R F Linezolid Linezolid S F Oxacillin Oxacillin R F Penicillin Penicillin R F Rifampin Rifampin S F Tetracycline Tetracycline S F Trimethoprim/Sulfamet hoxazole Trimethoprim/Sulfamet hoxazole S F Vancomycin Vancomycin S F Clindamycin Clindamycin R F Lower Respiratory Culture See Below For Report Lower Respiratory Culture WILL FOLLOW O:MRSA Isolated Organism: 8.1 Antibiotic Interpretation ROWAN Status Ciprofloxacin Ciprofloxacin R F Erythromycin Erythromycin R F Gentamicin Gentamicin S F Levofloxacin Levofloxacin R F Linezolid Linezolid S F Oxacillin Oxacillin R F Penicillin Penicillin R F Rifampin Rifampin S F Tetracycline Tetracycline S F Trimethoprim/Sulfamet hoxazole Trimethoprim/Sulfamet hoxazole S F Vancomycin Vancomycin S F Clindamycin Clindamycin R F Performing Lab: see note LC - [facility] LB SEE REPORT - Emergency Telecommunications Dispatcher Id information not found for OBX-specific reproducer legend PROF 14(COMP METB) Reviewed date:01/05/2025 02:20:10 PM Interpretation: Performing Lab: Notes/Report: [facility] , Sodium 140 136-145 mmol/L Potassium 3.1 3.5-5.1 mmol/L Chloride 110 98-107 mmol/L Carbon Dioxide 9.8 21.0-32.0 mmol/L Anion Gap 23.3 Glucose 117 74-106 mg/dL Blood Urea Nitrogen 112.0 7.0-18.0 mg/dL RESULTS CALLED TO MAR MENDOZA RN @BY Quin Dawson at 0553 Creatinine 5.36 0.55-1.02 mg/dL RESULTS CALLED TO MAR MENDOZA RN @BY Quin Dawson at 0553 Estimated GFR ( Kasandra 9 >=60 mL/min/1.73m 2 Estimated GFR (Non- Ila 8 >=60 mL/min/1.73m 2 BUN Creatinine Ratio 20.9 Calcium 6.6 8.5-10.1 mg/dL Bilirubin Total 0.3 0.2-1.0 mg/dL Aspartate Amino Transferase 30 15-37 U/L Alanine Aminotransferase 38 14-59 U/L Alkaline Phosphatase 254 46-116 U/L Total Protein 5.5 6.4-8.2 g/dL Albumin Level 2.7 3.4-5.0 g/dL Globulin 2.8 Albumin Globulin Ratio 1.0 Performing Lab: see note ML - [facility] LB MAGNESIUM Reviewed date:01/05/2025 02:20:10 PM Interpretation: Performing Lab: Notes/Report: [facility] , Magnesium 1.2 1.8-2.4 mg/dL Performing Lab: see note ML - [facility] [place] LB CBC AUTO DIFF Reviewed date:01/05/2025 02:20:10 PM Interpretation: Performing Lab: Notes/Report: [facility] , White Blood Count 12.7 4.0-11.0 10 3/uL Red Blood Count 3.46 4.20-5.40 10 6/uL Hemoglobin 9.9 12.0-16.0 g/dL Hematocrit 30.5 36.0-48.0 % Mean Corpuscular Volume 88.2 81.0-99.0 fL Mean Corpuscular Hemoglobin 28.6 26.7-34.0 pg Mean Corpuscular HGB Conc 32.5 29.9-35.2 g/dL Red Cell Distribution Width 14.5 11.0-15.0 % Platelet Count 190 150-450 10 3/uL Mean Platelet Volume 10.6 9.5-13.5 fL Neutrophils Percent Auto 82.8 43.0-75.0 % Lymphocytes Percent Auto 7.3 20.5-60.0 % Monocytes Percent Auto 9.1 1.7-12.0 % Eosinophils Percent Auto 0.4 0.9-7.0 % Basophils Percent Auto 0.2 0.2-2.0 % Immature Granulocytes Pct Auto 0.2 0.0-0.5 % Neutrophils Absolute Auto 10.5 1.4-6.5 10 3/uL Lymphocytes Absolute Auto 0.9 1.2-3.8 10 3/uL Monocytes Absolute Auto 1.2 0.3-0.8 10 3/uL Eosinophils Absolute Auto 0.1 0.0-0.7 10 3/uL Basophils Absolute Auto 0.0 0.0-0.1 10 3/uL Immature Granulocytes Abs Auto 0.03 0.00-0.03 10 3/uL Performing Lab: see note ML - [facility] LB ECG 12 lead Reviewed date:01/05/2025 02:20:10 PM Interpretation: Performing Lab: Notes/Report: Source Facility: [facility]-[address] [place] [address] [place] [address] Electrocardiograph Report Signed Patient: SYLVIA HERRERA MR#: [id number] : 1945 Acct:[id number] Age/Sex: 79 / F ADM Date: 01/04/25 Loc: MS 204-[address]: Tao Davis M.D. Ordering Physician: Elisa Ghosh Date of Service: 01/04/25 Procedure(s): ECG 12 lead Accession Number(s): [id number] cc: [facility] Test Date: 2025-01-04 Pat Name: SYLVIA HERRERA Department: Room: - Gender: Female Handling Tech: : 1945 Requested By: TAO DAVIS Order Number: [id number] Reading MD: MAN HAIDER Measurements Intervals [place] Rate: 89 P: -30 NC: 162 QRS: 95 QRSD: 104 T: 56 QT: 406 QTc: 453 Interpretive Statements 1100 Sinus rhythm 2440 Incomplete right bundle branch block 4068 Nonspecific Twave abnormality 7102 Moderate right axis deviation 8304 Long QTc interval 9150 abnormal ECG Electronically Signed On 01-05-2025 6:57:06 EST by MAN HAIDER Dictated By: Man Haider D.O. Signed By: 01/05/25656 DD/ 28 TD/TT: Health Information Administrator: [place] [address] Electrocardiograph Report Signed Patient: SYLVIA HERRERA MR#: [id number] : 1945 Acct:[id number] Age/Sex: 79 / F ADM Date: 01/04/25 Loc: MS 204-[address]: Ameena Davis M.D. Ordering Physician: Elisa Ghosh Date of Service: 01/04/25 Procedure(s): ECG 12 lead Accession Number(s): [id number] cc: [facility] Test Date: 2025-01-04 Pat Name: SYLVIA MOTA Deedee Department: 41 Room: - Gender: Female Handling Tech: : 1945 Requ ested By: TAO DAVIS Order Number: [id number] Reading MD: MAN HAIDER Measurements Intervals [place] Rate: 89 P: -30 NC: 162 QRS: 95 QRSD: 104 T: 56 QT: 406 QTc: 453 Interpretive Statements 1100 Sinus rhythm 2440 Incomplete righ t bundle branch block 4068 Nonspecific Twa ve abnormality 7102 Moderate right axis deviation 8304 Long QTc interval 9150 abnormal ECG Electronically Kelly d On 01-05-2025 6:57:06 EST by MAN HAIDER Dictated By: Man Haider D.O. Signed By: 01/05/25656 DD/ 28 TD/TT: Health Information Administrator: SARS-CoV-2 Ag* Reviewed date:01/05/2025 02:20:11 PM Interpretation: Performing Lab: Notes/Report: [facility] , SARS-CoV-2 Ag NEGATIVE NEGATIVE This test has not been FDA cleared [...] is terminated or authorization is revoked sooner. Performing Lab: see note ML - [facility] LB LACTATE or LACTIC ACID Reviewed date:01/05/2025 02:20:10 PM Interpretation: Performing Lab: Notes/Report: [facility] , Lactate/Lactic Acid 0.9 0.4-2.0 mmol/L Performing Lab: see note ML - [facility] LB INFLUENZA A AND B AG Reviewed date:01/05/2025 02:20:11 PM Interpretation: Performing Lab: Notes/Report: [facility] , Influenza Virus A Antigen Negative Negative for Flu A protein antigen. Infection due to Flu A cannot be ruled out. Flu A antigen in the sample may be below the detection limit of the test. Influenza Virus B Antigen Negative Negative for Flu B protein antigen. Infection due to Flu B cannot be ruled out. Flu B antigen in the sample may be below the detection limit of the test. Performing Lab: see note ML - [facility] LB CBC AUTO DIFF Reviewed date:01/05/2025 02:20:11 PM Interpretation: Performing Lab: Notes/Report: [facility] , White Blood Count 13.9 4.0-11.0 10 3/uL Red Blood Count 4.16 4.20-5.40 10 6/uL Hemoglobin 12.2 12.0-16.0 g/dL Hematocrit 37.1 36.0-48.0 % Mean Corpuscular Volume 89.2 81.0-99.0 fL Mean Corpuscular Hemoglobin 29.3 26.7-34.0 pg Mean Corpuscular HGB Conc 32.9 29.9-35.2 g/dL Red Cell Distribution Width 14.6 11.0-15.0 % Platelet Count 219 150-450 10 3/uL Mean Platelet Volume 10.8 9.5-13.5 fL Neutrophils Percent Auto 82.7 43.0-75.0 % Lymphocytes Percent Auto 8.3 20.5-60.0 % Monocytes Percent Auto 8.2 1.7-12.0 % Eosinophils Percent Auto 0.2 0.9-7.0 % Basophils Percent Auto 0.2 0.2-2.0 % Immature Granulocytes Pct Auto 0.4 0.0-0.5 % Neutrophils Absolute Auto 11.5 1.4-6.5 10 3/uL Lymphocytes Absolute Auto 1.2 1.2-3.8 10 3/uL Monocytes Absolute Auto 1.1 0.3-0.8 10 3/uL Eosinophils Absolute Auto 0.0 0.0-0.7 10 3/uL Basophils Absolute Auto 0.0 0.0-0.1 10 3/uL Immature Granulocytes Abs Auto 0.06 0.00-0.03 10 3/uL Performing Lab: see note - [facility] LB Anaerobic Culture Reviewed date:01/12/2025 02:35:03 PM Interpretation: Performing Lab: Notes/Report: [facility] , Anaerobic Culture See Below For Report Anaerobic Culture O:CUTIAC Isolated Anaerobic Culture Holding for possible anaerobes. Anaerobic Culture O:CUTIAC Isolated Anaerobic Culture Organism: Cutibacter ium acnes : Anaerobic Culture O:CUTIAC Isolated Anaerobic Culture *ABNORMAL* Anaerobic Culture O:CUTIAC Isolated Anaerobic Culture Scant growth Anaerobic Culture O:CUTIAC Isolated Anaerobic Culture Cutibacterium acnes Anaerobic Culture O:CUTIAC Isolated Anaerobic Culture See Below For Report Anaerobic Culture O:CUTIAC Isolated Performing Lab: see note LC - [facility] LB Aerobic Culture Reviewed date:01/12/2025 02:35:03 PM Interpretation: Performing Lab: Notes/Report: [facility] , Aerobic Culture See Below For Report Aerobic Culture O:MRSA Isolated Organism: 2.1 Antibiotic Interpretation ROWAN Status Ciprofloxacin Ciprofloxacin R F Erythromycin Erythromycin R F Gentamicin Gentamicin S F Levofloxacin Levofloxacin R F Linezolid Linezolid S F Oxacillin Oxacillin R F Penicillin Penicillin R F Rifampin Rifampin S F Tetracycline Tetracycline S F Trimethoprim/Sulfamet hoxazole Trimethoprim/Sulfamet hoxazole S F Vancomycin Vancomycin S F Clindamycin Clindamycin R F Aerobic Culture Growth observed. Fur ther testing to rule out possible pathogen(s) Aerobic Culture O:MRSA Isolated Organism: 2.1 Antibiotic Interpretation ROWAN Status Ciprofloxacin Ciprofloxacin R F Erythromycin Erythromycin R F Gentamicin Gentamicin S F Levofloxacin Levofloxacin R F Linezolid Linezolid S F Oxacillin Oxacillin R F Penicillin Penicillin R F Rifampin Rifampin S F Tetracycline Tetracycline S F Trimethoprim/Sulfamet hoxazole Trimethoprim/Sulfamet hoxazole S F Vancomycin Vancomycin S F Clindamycin Clindamycin R F Aerobic Culture is in progress. Aerobic Culture O:MRSA Isolated Organism: 2.1 Antibiotic Interpretation ROWAN Status Ciprofloxacin Ciprofloxacin R F Erythromycin Erythromycin R F Gentamicin Gentamicin S F Levofloxacin Levofloxacin R F Linezolid Linezolid S F Oxacillin Oxacillin R F Penicillin Penicillin R F Rifampin Rifampin S F Tetracycline Tetracycline S F Trimethoprim/Sulfamet hoxazole Trimethoprim/Sulfamet hoxazole S F Vancomycin Vancomycin S F Clindamycin Clindamycin R F Aerobic Culture Organism: Eugenieicilli n Mega Staph Aureus : Aerobic Culture O:MRSA Isolated Organism: 2.1 Antibiotic Interpretation ROWAN Status Ciprofloxacin Ciprofloxacin R F Erythromycin Erythromycin R F Gentamicin Gentamicin S F Levofloxacin Levofloxacin R F Linezolid Linezolid S F Oxacillin Oxacillin R F Penicillin Penicillin R F Rifampin Rifampin S F Tetracycline Tetracycline S F Trimethoprim/Sulfamet hoxazole Trimethoprim/Sulfamet hoxazole S F Vancomycin Vancomycin S F Clindamycin Clindamycin R F Aerobic Culture *ABNORMAL* Aerobic Culture O:MRSA Isolated Organism: 2.1 Antibiotic Interpretation ROWAN Status Ciprofloxacin Ciprofloxacin R F Erythromycin Erythromycin R F Gentamicin Gentamicin S F Levofloxacin Levofloxacin R F Linezolid Linezolid S F Oxacillin Oxacillin R F Penicillin Penicillin R F Rifampin Rifampin S F Tetracycline Tetracycline S F Trimethoprim/Sulfamet hoxazole Trimethoprim/Sulfamet hoxazole S F Vancomycin Vancomycin S F Clindamycin Clindamycin R F Aerobic Culture Methicillin - resistant Aerobic Culture O:MRSA Isolated Organism: 2.1 Antibiotic Interpretation ROWAN Status Ciprofloxacin Ciprofloxacin R F Erythromycin Erythromycin R F Gentamicin Gentamicin S F Levofloxacin Levofloxacin R F Linezolid Linezolid S F Oxacillin Oxacillin R F Penicillin Penicillin R F Rifampin Rifampin S F Tetracycline Tetracycline S F Trimethoprim/Sulfamet hoxazole Trimethoprim/Sulfamet hoxazole S F Vancomycin Vancomycin S F Clindamycin Clindamycin R F Aerobic Culture Based on resistance to oxacillin this isolate would be Aerobic Culture O:MRSA Isolated Organism: 2.1 Antibiotic Interpretation ROWAN Status Ciprofloxacin Ciprofloxacin R F Erythromycin Erythromycin R F Gentamicin Gentamicin S F Levofloxacin Levofloxacin R F Linezolid Linezolid S F Oxacillin Oxacillin R F Penicillin Penicillin R F Rifampin Rifampin S F Tetracycline Tetracycline S F Trimethoprim/Sulfamet hoxazole Trimethoprim/Sulfamet hoxazole S F Vancomycin Vancomycin S F Clindamycin Clindamycin R F Aerobic Culture resistant to all currently available beta-lactam Aerobic Culture O:MRSA Isolated Organism: 2.1 Antibiotic Interpretation ROWAN Status Ciprofloxacin Ciprofloxacin R F Erythromycin Erythromycin R F Gentamicin Gentamicin S F Levofloxacin Levofloxacin R F Linezolid Linezolid S F Oxacillin Oxacillin R F Penicillin Penicillin R F Rifampin Rifampin S F Tetracycline Tetracycline S F Trimethoprim/Sulfamet hoxazole Trimethoprim/Sulfamet hoxazole S F Vancomycin Vancomycin S F Clindamycin Clindamycin R F Aerobic Culture antimicrobial agents , with the exception of the newer Aerobic Culture O:MRSA Isolated Organism: 2.1 Antibiotic Interpretation ROWAN Status Ciprofloxacin Ciprofloxacin R F Erythromycin Erythromycin R F Gentamicin Gentamicin S F Levofloxacin Levofloxacin R F Linezolid Linezolid S F Oxacillin Oxacillin R F Penicillin Penicillin R F Rifampin Rifampin S F Tetracycline Tetracycline S F Trimethoprim/Sulfamet hoxazole Trimethoprim/Sulfamet hoxazole S F Vancomycin Vancomycin S F Clindamycin Clindamycin R F Aerobic Culture cephalosporins with anti-MRSA activity, such as Aerobic Culture O:MRSA Isolated Organism: 2.1 Antibiotic Interpretation ROWAN Status Ciprofloxacin Ciprofloxacin R F Erythromycin Erythromycin R F Gentamicin Gentamicin S F Levofloxacin Levofloxacin R F Linezolid Linezolid S F Oxacillin Oxacillin R F Penicillin Penicillin R F Rifampin Rifampin S F Tetracycline Tetracycline S F Trimethoprim/Sulfamet hoxazole Trimethoprim/Sulfamet hoxazole S F Vancomycin Vancomycin S F Clindamycin Clindamycin R F Aerobic Culture Ceftaroline Aerobic Culture O:MRSA Isolated Organism: 2.1 Antibiotic Interpretation ROWAN Status Ciprofloxacin Ciprofloxacin R F Erythromycin Erythromycin R F Gentamicin Gentamicin S F Levofloxacin Levofloxacin R F Linezolid Linezolid S F Oxacillin Oxacillin R F Penicillin Penicillin R F Rifampin Rifampin S F Tetracycline Tetracycline S F Trimethoprim/Sulfamet hoxazole Trimethoprim/Sulfamet hoxazole S F Vancomycin Vancomycin S F Clindamycin Clindamycin R F Aerobic Culture Light growth Aerobic Culture O:MRSA Isolated Organism: 2.1 Antibiotic Interpretation ROWAN Status Ciprofloxacin Ciprofloxacin R F Erythromycin Erythromycin R F Gentamicin Gentamicin S F Levofloxacin Levofloxacin R F Linezolid Linezolid S F Oxacillin Oxacillin R F Penicillin Penicillin R F Rifampin Rifampin S F Tetracycline Tetracycline S F Trimethoprim/Sulfamet hoxazole Trimethoprim/Sulfamet hoxazole S F Vancomycin Vancomycin S F Clindamycin Clindamycin R F Aerobic Culture Methicillin Resis St aph Aureus Aerobic Culture O:MRSA Isolated Organism: 2.1 Antibiotic Interpretation ROWAN Status Ciprofloxacin Ciprofloxacin R F Erythromycin Erythromycin R F Gentamicin Gentamicin S F Levofloxacin Levofloxacin R F Linezolid Linezolid S F Oxacillin Oxacillin R F Penicillin Penicillin R F Rifampin Rifampin S F Tetracycline Tetracycline S F Trimethoprim/Sulfamet hoxazole Trimethoprim/Sulfamet hoxazole S F Vancomycin Vancomycin S F Clindamycin Clindamycin R F Aerobic Culture See Below For Report Aerobic Culture O:MRSA Isolated Organism: 2.1 Antibiotic Interpretation ROWAN Status Ciprofloxacin Ciprofloxacin R F Erythromycin Erythromycin R F Gentamicin Gentamicin S F Levofloxacin Levofloxacin R F Linezolid Linezolid S F Oxacillin Oxacillin R F Penicillin Penicillin R F Rifampin Rifampin S F Tetracycline Tetracycline S F Trimethoprim/Sulfamet hoxazole Trimethoprim/Sulfamet hoxazole S F Vancomycin Vancomycin S F Clindamycin Clindamycin R F Aerobic Culture Performed at: [facility] Aerobic Culture O:MRSA Isolated Organism: 2.1 Antibiotic Interpretation ROWAN Status Ciprofloxacin Ciprofloxacin R F Erythromycin Erythromycin R F Gentamicin Gentamicin S F Levofloxacin Levofloxacin R F Linezolid Linezolid S F Oxacillin Oxacillin R F Penicillin Penicillin R F Rifampin Rifampin S F Tetracycline Tetracycline S F Trimethoprim/Sulfamet hoxazole Trimethoprim/Sulfamet hoxazole S F Vancomycin Vancomycin S F Clindamycin Clindamycin R F Aerobic Culture [address] [place], [place] [id number] Aerobic Culture O:MRSA Isolated Organism: 2.1 Antibiotic Interpretation ROWAN Status Ciprofloxacin Ciprofloxacin R F Erythromycin Erythromycin R F Gentamicin Gentamicin S F Levofloxacin Levofloxacin R F Linezolid Linezolid S F Oxacillin Oxacillin R F Penicillin Penicillin R F Rifampin Rifampin S F Tetracycline Tetracycline S F Trimethoprim/Sulfamet hoxazole Trimethoprim/Sulfamet hoxazole S F Vancomycin Vancomycin S F Clindamycin Clindamycin R F Aerobic Culture Earring Maker: Brice Novoa PhD, Phone: [phone] Aerobic Culture O:MRSA Isolated Organism: 2.1 Antibiotic Interpretation ROWAN Status Ciprofloxacin Ciprofloxacin R F Erythromycin Erythromycin R F Gentamicin Gentamicin S F Levofloxacin Levofloxacin R F Linezolid Linezolid S F Oxacillin Oxacillin R F Penicillin Penicillin R F Rifampin Rifampin S F Tetracycline Tetracycline S F Trimethoprim/Sulfamet hoxazole Trimethoprim/Sulfamet hoxazole S F Vancomycin Vancomycin S F Clindamycin Clindamycin R F Aerobic Culture See Below For Report Aerobic Culture O:MRSA Isolated Organism: 2.1 Antibiotic Interpretation ROWAN Status Ciprofloxacin Ciprofloxacin R F Erythromycin Erythromycin R F Gentamicin Gentamicin S F Levofloxacin Levofloxacin R F Linezolid Linezolid S F Oxacillin Oxacillin R F Penicillin Penicillin R F Rifampin Rifampin S F Tetracycline Tetracycline S F Trimethoprim/Sulfamet hoxazole Trimethoprim/Sulfamet hoxazole S F Vancomycin Vancomycin S F Clindamycin Clindamycin R F Aerobic Culture See Below For Report Aerobic Culture O:MRSA Isolated Organism: 2.1 Antibiotic Interpretation ROWAN Status Ciprofloxacin Ciprofloxacin R F Erythromycin Erythromycin R F Gentamicin Gentamicin S F Levofloxacin Levofloxacin R F Linezolid Linezolid S F Oxacillin Oxacillin R F Penicillin Penicillin R F Rifampin Rifampin S F Tetracycline Tetracycline S F Trimethoprim/Sulfamet hoxazole Trimethoprim/Sulfamet hoxazole S F Vancomycin Vancomycin S F Clindamycin Clindamycin R F Aerobic Culture See Below For Report Aerobic Culture O:MRSA Isolated Organism: 2.1 Antibiotic Interpretation ROWAN Status Ciprofloxacin Ciprofloxacin R F Erythromycin Erythromycin R F Gentamicin Gentamicin S F Levofloxacin Levofloxacin R F Linezolid Linezolid S F Oxacillin Oxacillin R F Penicillin Penicillin R F Rifampin Rifampin S F Tetracycline Tetracycline S F Trimethoprim/Sulfamet hoxazole Trimethoprim/Sulfamet hoxazole S F Vancomycin Vancomycin S F Clindamycin Clindamycin R F Aerobic Culture See Below For Report Aerobic Culture O:MRSA Isolated Organism: 2.1 Antibiotic Interpretation ROWAN Status Ciprofloxacin Ciprofloxacin R F Erythromycin Erythromycin R F Gentamicin Gentamicin S F Levofloxacin Levofloxacin R F Linezolid Linezolid S F Oxacillin Oxacillin R F Penicillin Penicillin R F Rifampin Rifampin S F Tetracycline Tetracycline S F Trimethoprim/Sulfamet hoxazole Trimethoprim/Sulfamet hoxazole S F Vancomycin Vancomycin S F Clindamycin Clindamycin R F Aerobic Culture See Below For Report Aerobic Culture O:MRSA Isolated Organism: 2.1 Antibiotic Interpretation ROWAN Status Ciprofloxacin Ciprofloxacin R F Erythromycin Erythromycin R F Gentamicin Gentamicin S F Levofloxacin Levofloxacin R F Linezolid Linezolid S F Oxacillin Oxacillin R F Penicillin Penicillin R F Rifampin Rifampin S F Tetracycline Tetracycline S F Trimethoprim/Sulfamet hoxazole Trimethoprim/Sulfamet hoxazole S F Vancomycin Vancomycin S F Clindamycin Clindamycin R F Aerobic Culture See Below For Report Aerobic Culture O:MRSA Isolated Organism: 2.1 Antibiotic Interpretation ROWAN Status Ciprofloxacin Ciprofloxacin R F Erythromycin Erythromycin R F Gentamicin Gentamicin S F Levofloxacin Levofloxacin R F Linezolid Linezolid S F Oxacillin Oxacillin R F Penicillin Penicillin R F Rifampin Rifampin S F Tetracycline Tetracycline S F Trimethoprim/Sulfamet hoxazole Trimethoprim/Sulfamet hoxazole S F Vancomycin Vancomycin S F Clindamycin Clindamycin R F Aerobic Culture See Below For Report Aerobic Culture O:MRSA Isolated Organism: 2.1 Antibiotic Interpretation ROWAN Status Ciprofloxacin Ciprofloxacin R F Erythromycin Erythromycin R F Gentamicin Gentamicin S F Levofloxacin Levofloxacin R F Linezolid Linezolid S F Oxacillin Oxacillin R F Penicillin Penicillin R F Rifampin Rifampin S F Tetracycline Tetracycline S F Trimethoprim/Sulfamet hoxazole Trimethoprim/Sulfamet hoxazole S F Vancomycin Vancomycin S F Clindamycin Clindamycin R F Aerobic Culture See Below For Report Aerobic Culture O:MRSA Isolated Organism: 2.1 Antibiotic Interpretation ROWAN Status Ciprofloxacin Ciprofloxacin R F Erythromycin Erythromycin R F Gentamicin Gentamicin S F Levofloxacin Levofloxacin R F Linezolid Linezolid S F Oxacillin Oxacillin R F Penicillin Penicillin R F Rifampin Rifampin S F Tetracycline Tetracycline S F Trimethoprim/Sulfamet hoxazole Trimethoprim/Sulfamet hoxazole S F Vancomycin Vancomycin S F Clindamycin Clindamycin R F Aerobic Culture See Below For Report Aerobic Culture O:MRSA Isolated Organism: 2.1 Antibiotic Interpretation ROWAN Status Ciprofloxacin Ciprofloxacin R F Erythromycin Erythromycin R F Gentamicin Gentamicin S F Levofloxacin Levofloxacin R F Linezolid Linezolid S F Oxacillin Oxacillin R F Penicillin Penicillin R F Rifampin Rifampin S F Tetracycline Tetracycline S F Trimethoprim/Sulfamet hoxazole Trimethoprim/Sulfamet hoxazole S F Vancomycin Vancomycin S F Clindamycin Clindamycin R F Aerobic Culture See Below For Report Aerobic Culture O:MRSA Isolated Organism: 2.1 Antibiotic Interpretation ROWAN Status Ciprofloxacin Ciprofloxacin R F Erythromycin Erythromycin R F Gentamicin Gentamicin S F Levofloxacin Levofloxacin R F Linezolid Linezolid S F Oxacillin Oxacillin R F Penicillin Penicillin R F Rifampin Rifampin S F Tetracycline Tetracycline S F Trimethoprim/Sulfamet hoxazole Trimethoprim/Sulfamet hoxazole S F Vancomycin Vancomycin S F Clindamycin Clindamycin R F Aerobic Culture See Below For Report Aerobic Culture O:MRSA Isolated Organism: 2.1 Antibiotic Interpretation ROWAN Status Ciprofloxacin Ciprofloxacin R F Erythromycin Erythromycin R F Gentamicin Gentamicin S F Levofloxacin Levofloxacin R F Linezolid Linezolid S F Oxacillin Oxacillin R F Penicillin Penicillin R F Rifampin Rifampin S F Tetracycline Tetracycline S F Trimethoprim/Sulfamet hoxazole Trimethoprim/Sulfamet hoxazole S F Vancomycin Vancomycin S F Clindamycin Clindamycin R F Aerobic Culture See Below For Report Aerobic Culture O:MRSA Isolated Organism: 2.1 Antibiotic Interpretation ROWAN Status Ciprofloxacin Ciprofloxacin R F Erythromycin Erythromycin R F Gentamicin Gentamicin S F Levofloxacin Levofloxacin R F Linezolid Linezolid S F Oxacillin Oxacillin R F Penicillin Penicillin R F Rifampin Rifampin S F Tetracycline Tetracycline S F Trimethoprim/Sulfamet hoxazole Trimethoprim/Sulfamet hoxazole S F Vancomycin Vancomycin S F Clindamycin Clindamycin R F Aerobic Culture See Below For Report Aerobic Culture O:MRSA Isolated Organism: 2.1 Antibiotic Interpretation ROWAN Status Ciprofloxacin Ciprofloxacin R F Erythromycin Erythromycin R F Gentamicin Gentamicin S F Levofloxacin Levofloxacin R F Linezolid Linezolid S F Oxacillin Oxacillin R F Penicillin Penicillin R F Rifampin Rifampin S F Tetracycline Tetracycline S F Trimethoprim/Sulfamet hoxazole Trimethoprim/Sulfamet hoxazole S F Vancomycin Vancomycin S F Clindamycin Clindamycin R F Performing Lab: see note LC - [facility] LB SEE REPORT - Emergency Telecommunications Dispatcher Id information not found for OBX-specific reproducer legend PROF CHEM [id number] (BAS METB) Reviewed date:12/14/2024 08:10:41 PM Interpretation: Performing Lab: Notes/Report: [facility] , Sodium 143 136-145 mmol/L Potassium 4.2 3.5-5.1 mmol/L Chloride 111 98-107 mmol/L Carbon Dioxide 19.3 21.0-32.0 mmol/L Anion Gap 16.9 Glucose 123 74-106 mg/dL Blood Urea Nitrogen 43.0 7.0-18.0 mg/dL Creatinine 2.59 0.55-1.02 mg/dL Estimated GFR ( Kasandra 22 >=60 mL/min/1.73m 2 Estimated GFR (Non- Ila 18 >=60 mL/min/1.73m 2 BUN Creatinine Ratio 16.6 Calcium 8.2 8.5-10.1 mg/dL Performing Lab: see note - [facility] LB CBC AUTO DIFF Reviewed date:01/07/2025 07:57:35 AM Interpretation: Performing Lab: Notes/Report: [facility] , White Blood Count 11.2 4.0-11.0 10 3/uL Red Blood Count 2.97 4.20-5.40 10 6/uL Hemoglobin 8.7 12.0-16.0 g/dL Hematocrit 27.3 36.0-48.0 % Mean Corpuscular Volume 91.9 81.0-99.0 fL Mean Corpuscular Hemoglobin 29.3 26.7-34.0 pg Mean Corpuscular HGB Conc 31.9 29.9-35.2 g/dL Red Cell Distribution Width 15.0 11.0-15.0 % Platelet Count 163 150-450 10 3/uL Mean Platelet Volume 10.9 9.5-13.5 fL Neutrophils Percent Auto 84.0 43.0-75.0 % Lymphocytes Percent Auto 5.6 20.5-60.0 % Monocytes Percent Auto 7.4 1.7-12.0 % Eosinophils Percent Auto 1.3 0.9-7.0 % Basophils Percent Auto 0.2 0.2-2.0 % Immature Granulocytes Pct Auto 1.5 0.0-0.5 % Neutrophils Absolute Auto 9.4 1.4-6.5 10 3/uL Lymphocytes Absolute Auto 0.6 1.2-3.8 10 3/uL Monocytes Absolute Auto 0.8 0.3-0.8 10 3/uL Eosinophils Absolute Auto 0.2 0.0-0.7 10 3/uL Basophils Absolute Auto 0.0 0.0-0.1 10 3/uL Immature Granulocytes Abs Auto 0.17 0.00-0.03 10 3/uL Performing Lab: see note ML - [facility] LB MAGNESIUM Reviewed date:01/07/2025 07:57:35 AM Interpretation: Performing Lab: Notes/Report: [facility] , Magnesium 1.9 1.8-2.4 mg/dL Performing Lab: see note - [facility] LB PROF 14(COMP METB) Reviewed date:01/07/2025 07:57:35 AM Interpretation: Performing Lab: Notes/Report: [facility] , Sodium 140 136-145 mmol/L Potassium 5.1 3.5-5.1 mmol/L Chloride 112 98-107 mmol/L Carbon Dioxide 10.9 21.0-32.0 mmol/L Anion Gap 22.2 Glucose 116 74-106 mg/dL Blood Urea Nitrogen 85.0 7.0-18.0 mg/dL RESULTS CALLED TO ANN-MARIE PERKINS RN @BY Quin Dawson at 0636 Creatinine 4.05 0.55-1.02 mg/dL Estimated GFR ( Kasandra 13 >=60 mL/min/1.73m 2 Estimated GFR (Non- Ila 11 >=60 mL/min/1.73m 2 BUN Creatinine Ratio 21.0 Calcium 7.2 8.5-10.1 mg/dL Bilirubin Total 0.5 0.2-1.0 mg/dL Aspartate Amino Transferase 26 15-37 U/L Alanine Aminotransferase 34 14-59 U/L Alkaline Phosphatase 221 46-116 U/L Total Protein 4.9 6.4-8.2 g/dL Albumin Level 2.4 3.4-5.0 g/dL Globulin 2.5 Albumin Globulin Ratio 1.0 Performing Lab: see note ML - [facility] CA echo doppler complete Reviewed date:09/27/2024 09:22:20 PM Interpretation: Performing Lab: Notes/Report: Source Facility: [place] [address] Cardiology Report Signed Patient: SYLVIA HERRERA MR#: [id number] : 1945 Acct:[id number] Age/Sex: 78 / F ADM Date: 09/25/24 Loc: CARD Attending Dr: ANISHA DINH Ordering Physician: ANISHA DINH Date of Service: 09/25/24 Procedure(s): CA echo doppler complete Accession Number(s): [id number] cc: Tao Davis M.D.; ANISHA DINH Patient Name: SYLVIA HERRERA MR#: [id number] : 1945 Exam Date: 09/25/2024 Ordering Doctor: DR ANISHA DINH M.D. ECHOCARDIOGRAM REPORT PROCEDURE: CA ECHO DOPPLER COMPLETE INDICATIONS: Dyspnea, S/P heart transplant (2005) COMPARISON: None. DESCRIPTION: COMPLETE ECHOCARDIOGRAM Real-time transthoracic echocardiography with 2D, M-mode, spectral and color flow Doppler performed. QUALITY: Technical quality was good. LEFT VENTRICLE: Normal chamber size. Borderline left ventricular hypertrophy. LV EF: Global left ventricular systolic function is hyperdynamic; visual estimation of left ventricular ejection fraction is 65-70%. DIASTOLIC: Unable to assess diastolic function. ATRIAL SEPTUM: Inadequately seen. LEFT ATRIUM: Enlarged consistent with heart transplant. RIGHT ATRIUM: Enlarged consistent with heart transplant. RIGHT VENTRICLE: Normal chamber size. Normal right ventricular systolic function. TRICUSPID VALVE: Normal mobility and thickness. No stenosis with mild regurgitation. Moderate pulmonary hypertension. RVSP 56mmHg MITRAL VALVE: Normal mobility and thickness. No evidence of mitral valve stenosis. There is no mitral annular calcification. Trivial mitral regurgitation. AORTIC VALVE: Normal trileaflet appearance. No visible sclerosis. Normal leaflet mobility. No evidence of aortic valve stenosis. Mild aortic regurgitation. AORTIC ROOT: Normal diameter and appearance. PULMONIC VALVE: Normal thickness and mobility. No stenosis. Trivial regurgitation. PERICARDIUM: No evidence of pericardial effusion. IVC: Within normal limits. Normal in size with partial collapse. CONCLUSION: 1. Global left ventricular systolic function is hyperdynamic; visually estimated ejection fraction is 65 to 70% 2. Normal right ventricular size and systolic function 3. The atria are enlarged consistent with history of heart transplantation 4. Borderline left ventricular hypertrophy 5. Unable to assess diastolic function 6. Mild tricuspid regurgitation 7. Moderately elevated right ventricular systolic pressure; RVSP 56 mmHg 8. Mild aortic valve regurgitation Adult Echocardiography Procedure Report Left Ventricle LVEDD (3.7 - 5.6 cm): 4.20 cm LVESD (2.2 - 4.0 cm): 2.58 cm LVIVS thickness (0.6 - 1.2 cm): 1.03 cm LVPW thickness (0.5 - 1.0 cm): 0.89 cm e': 0.12 m/s E - e': 11.63 LVOT Max Gradient: 2.48 mm[Hg] LVOT Area (cm2): 0.79 m/s Peak Velocity (LVOT): 0.79 m/s Mean Velocity (LVOT): 0.64 m/s LVOT Diameter 1.88 cm Left Ventricular Ejection Fraction: 73.04 % Left Atrium LA Volume Index (2D A2C): 51.83 ml/m2 Left Atrium Systolic Dimension: 4.25 cm Mitral Valve MV E to A Ratio: 3.11 Mitral Valve A-Wave Peak Velocity: 0.46 m/s Mitral Valve E-Wave Peak Velocity: 1.43 m/s Right Ventricle RV Internal Diastolic Dimension: 3.30 cm Aorta AO Root Diam: 3.12 cm Ascending Ao Diam: 2.65 cm Aortic Valve AoV Area (Peak Chris): 1.69 cm2, 1.69 cm2 AoV Area (VTI): 1.65 cm2, 1.65 cm2 Deceleration [place]: 1.17 m/s2 Pressure Half-Time: 983.11 ms Peak Velocity(Antegrade Flow): 1.29 m/s Peak Gradient(Antegrade Flow): 6.65 mm[Hg] Mean Velocity(Antegrade Flow): 0.93 m/s Mean Gradient(Antegrade Flow): 3.95 mm[Hg] Velocity Time Integral: 34.15 cm Tricuspid Valve Peak Velocity (Regurgitant Flow): 3.10 m/s, 3.31 m/s, 3.46 m/s, 3.24 m/s Pulmonic Valve Mean Gradient: 1.22 mm[Hg], 1.36 mm[Hg] Mean Velocity: 0.50 m/s, 0.54 m/s Peak Velocity: 0.75 m/s Peak Gradient: 2.14 mm[Hg], 2.39 mm[Hg] Right Atrium Right Atrium Systolic Pressure: 41.17 ml, 41.17 ml Dictated by: Michael Nolan M.D. on 09/25/2024 at 16:48 Approved by: Michael Nolan M.D. on 09/25/2024 at 16:51 Dictated By: Michael Nolan M.D. Signed By: 09/25/241651 DD/ 50 TD/TT: Health Information Administrator: [place] [address] Cardiology Report Signed Patient: SYLVIA HERRERA MR#: [id number] : 1945 Acct:[id number] Age/Sex: 78 / F ADM Date: 09/25/24 Loc: CARD Attending Dr: ANISHA DINH Ordering Physician: ANISHA DINH Date of Service: 09/25/24 Procedure(s): CA ech o doppler complete Accession Number(s): [id number] cc: Tao Davis M.D. ; ANISHA DINH Patient Name: SYLVIA HERRERA MR#: [id number] : 1945 Exam Date: 09/25/2024 Ordering Doctor: DR ANISHA DINH M.D. ECHOCARDIOGRAM REPORT PROCEDURE: CA ECHO DOPPLER COMPLETE INDICATIONS: Dyspnea , S/P heart transplant (2005) COMPARISON: None. DESCRIPTION: COMPLET E ECHOCARDIOGRAM Real-time transthoracic echocardiography wit h 2D, M-mode, spectral and color flow Doppler performed. QUALITY: Technical quality was good. LEFT VENTRICLE: Norm al chamber size. Borderline left ventricular hypertrophy. LV EF: Global left ventricular systolic function is hyperdynamic; visual estimation of left ventricular ejection fraction is 65-70%. DIASTOLIC: Unable to assess diastolic function. ATRIAL SEPTUM: Inadequately seen. LEFT ATRIUM: Enlarge d consistent with heart transplant. RIGHT ATRIUM: Enlarg ed consistent with heart transplant. RIGHT VENTRICLE: Nor mal chamber size. Normal right ventricular systolic function. TRICUSPID VALVE: Nor mal mobility and thickness. No stenosis with mild regurgitation. Moder ate pulmonary hypertension. RVSP 56mmHg MITRAL VALVE: Normal mobility and thickness. No evidence of mitral valve stenosis. There is n o mitral annular calcification. Trivial mitral regurgitation. AORTIC VALVE: Normal trileaflet appearance. No visible sclerosis. Normal leaflet mobility. No evidence of aortic valve stenosis. Mild aortic regurgitation. AORTIC ROOT: Normal diameter and appearance. PULMONIC VALVE: Norm al thickness and mobility. No stenosis. Trivial regurgitation. PERICARDIUM: No evid ence of pericardial effusion. IVC: Within normal limits. Normal in size with partial collapse. CONCLUSION: 1. Global left ventricular systolic function is hyperdynamic; visually estimated ejection fraction is 65 to 70% 2. Normal right ventricular size and systolic function 3. The atria are enl arged consistent with history of heart transplantation 4. Borderline left ventricular hypertrophy 5. Unable to assess diastolic function 6. Mild tricuspid regurgitation 7. Moderately elevat ed right ventricular systolic pressure; RVSP 56 mmHg 8. Mild aortic valve regurgitation Adult Echocardiograp hy Procedure Report Left Ventricle LVEDD (3.7 - 5.6 cm) : 4.20 cm LVESD (2.2 - 4.0 cm) : 2.58 cm LVIVS thickness (0.6 - 1.2 cm): 1.03 cm LVPW thickness (0.5 - 1.0 cm): 0.89 cm e': 0.12 m/s E - e': 11.63 LVOT Max Gradient: 2 .48 mm[Hg] LVOT Area (cm2): 0.79 m/s Peak Velocity (LVOT) : 0.79 m/s Mean Velocity (LVOT) : 0.64 m/s LVOT Diameter 1.88 cm Left Ventricular Eje ction Fraction: 73.04 % Left Atrium LA Volume Index (2D A2C): 51.83 ml/m2 Left Atrium Systolic Dimension: 4.25 cm Mitral Valve MV E to A Ratio: 3.11 Mitral Valve A-Wave Peak Velocity: 0.46 m/s Mitral Valve E-Wave Peak Velocity: 1.43 m/s Right Ventricle RV Internal Diastoli c Dimension: 3.30 cm Aorta AO Root Diam: 3.12 cm Ascending Ao Diam: 2 .65 cm Aortic Valve AoV Area (Peak Chris): 1.69 cm2, 1.69 cm2 AoV Area (VTI): 1.65 cm2, 1.65 cm2 Deceleration [place]: 1.17 m/s2 Pressure Half-Time: 983.11 ms Peak Velocity(Antegr dany Flow): 1.29 m/s Peak Gradient(Antegr dany Flow): 6.65 mm[Hg] Mean Velocity(Antegr dany Flow): 0.93 m/s Mean Gradient(Antegr dany Flow): 3.95 mm[Hg] Velocity Time Integr al: 34.15 cm Tricuspid Valve Peak Velocity (Regurgitant Flow): 3.10 m/s, 3.31 m/s, 3.46 m/s, 3.24 m/s Pulmonic Valve Mean Gradient: 1.22 mm[Hg], 1.36 mm[Hg] Mean Velocity: 0.50 m/s, 0.54 m/s Peak Velocity: 0.75 m/s Peak Gradient: 2.14 mm[Hg], 2.39 mm[Hg] Right Atrium Right Atrium Systoli c Pressure: 41.17 ml, 41.17 ml Dictated by: Michael Nolan M.D. on 09/25/2024 at 16:48 Approved by: Michael Nolan M.D. on 09/25/2024 at 16:51 Dictated By: Michael Nolan M.D. Signed By: 09/25/241651 DD/ 50 TD/TT: Health Information Administrator: Tacrolimus ([id number]), Blood Reviewed date:09/09/2024 08:40:00 PM Interpretation: Performing Lab: Notes/Report: [facility] , Tacrolimus ([id number]), Blood 9.2 2.0-20.0 ng/mL This test was developed and its performance characteristics determined by [facility]. It has not been cleared or approved by the Food and Drug Administration. Trough (immediately following transplant) 15.0 Trough (steady state, 2 weeks or more after transplant): 3.0 - 8.0 Performed by LC-MS/MS technology. Performed at: [address] [id number] Earring Maker: Erica Roa MD, Phone: [phone] Performing Lab: see note - [facility] LB Salmonella/Shigella Screen Reviewed date:01/12/2025 08:19:15 PM Interpretation: Performing Lab: Notes/Report: [facility] , Salmonella/Shigella Screen See Below For Report Salmonella/Shigella Screen Salmonella/Shigella Screen No Salmonella or Shigella recovered. Salmonella/Shigella Screen Performing Lab: see note - [facility] Campylobacter Culture Reviewed date:01/12/2025 08:19:15 PM Interpretation: Performing Lab: Notes/Report: [facility] , Campylobacter Culture See Below For Report Campylobacter Culture No Campylobacter species isolated. Performing Lab: see note - [facility] LB Occult Blood* Reviewed date:01/07/2025 06:44:23 PM Interpretation: Performing Lab: Notes/Report: [facility] , Occult Blood Negative Performing Lab: see note - [facility] LB PROF 14(COMP METB) Reviewed date:09/07/2024 02:54:16 PM Interpretation: Performing Lab: Notes/Report: [facility] , Sodium 132 136-145 mmol/L Potassium 3.5 3.5-5.1 mmol/L Chloride 101 98-107 mmol/L Carbon Dioxide 14.1 21.0-32.0 mmol/L Anion Gap 20.4 Glucose 126 74-106 mg/dL Blood Urea Nitrogen 44.0 7.0-18.0 mg/dL Creatinine 2.41 0.55-1.02 mg/dL Estimated GFR ( Kasandra 24 >=60 mL/min/1.73m 2 Estimated GFR (Non- Ila 19 >=60 mL/min/1.73m 2 BUN Creatinine Ratio 18.3 Calcium 8.0 8.5-10.1 mg/dL Bilirubin Total 0.6 0.2-1.0 mg/dL Aspartate Amino Transferase 26 15-37 U/L Alanine Aminotransferase 27 14-59 U/L Alkaline Phosphatase 292 46-116 U/L Total Protein 6.3 6.4-8.2 g/dL Albumin Level 3.4 3.4-5.0 g/dL Globulin 2.9 Albumin Globulin Ratio 1.2 Performing Lab: see note ML - [facility] LB IRON Reviewed date:09/11/2024 01:59:27 PM Interpretation: Performing Lab: Notes/Report: ADD ON [facility] , Iron 43.0 50.0-170.0 ug/dL Performing Lab: see note ML - [facility] LB US renal bladder Reviewed date:01/07/2025 12:52:57 PM Interpretation: Performing Lab: Notes/Report: Source Facility: [place] [address] [place] [address] Ultrasound Report Signed Patient: SYLVIA HERRERA MR#: [id number] : 1945 Acct:[id number] Age/Sex: 79 / F ADM Date: 01/04/25 Loc: MS 204-[address]: Tao Davis M.D. Ordering Physician: Tao Davis M.D. Date of Service: 01/07/25 Procedure(s): US renal bladder Accession Number(s): [id number] cc: Tao Davis M.D. [address] [place] [id number] Patient Name: SYLVIA HERRERA MRN: [id number] date: 1945 Sex: F Assigned Patient Location: MS Current Patient Location: MS Accession/Order Number: [id number] Exam Date: 01/07/2025 07:45 Report Date: 01/07/2025 09:42 At the request of: TAO DAVIS Procedure: US renal bladder EXAMINATION: US renal bladder HISTORY: ARF COMPARISON: No relevant comparison available. TECHNIQUE: Ultrasound examination was performed of the bladder. FINDINGS: Right Kidney: Small in size normal in contour. Diffuse increase in cortical echotexture. The cortex measures 0.7 cm. Multiple areas of anechoic echogenicity measuring up to 7 mm, cysts are favored. Mild hydronephrosis. No solid cortical mass Height: 6.60 cm Length: 8.77 cm Width: 4.36 cm Left Kidney: Small in size normal in contour. Diffuse increase in cortical echotexture. The cortex measures 0.5 cm. Multiple areas of anechoic echogenicity measuring 2.1 cm, cysts are favored. No hydronephrosis or solid cortical mass. Scattered calcifications Height: 4.20 cm Length: 8.15 cm Width: 4.96 cm Urinary bladder: Prevoid volume 37 mL. Post void volume 0 mL Ureteral jets: Visualized bilaterally US/US renal bladder IMPRESSION: Bilateral renal cortical atrophy with increased cortical echotexture consistent with medical renal disease Electronically authenticated by: JAZLYN STRICKLAND Date: 01/07/2025 09:42 Dictated By: Jazlyn Strickland M.D. Signed By: 01/07/2545 DD/ 1 TD/TT: Health Information Administrator: [place] [address] Ultrasound Report Signed Patient: SYLVIA HERRERA MR#: [id number] : 1945 Acct:[id number] Age/Sex: 79 / F ADM Date: 01/04/25 Loc: MS 204-[address]: Ameena Davis M.D. Ordering Physician: Tao Davis M.D. Date of Service: 01/07/25 Procedure(s): US maria victoria al bladder Accession Number(s): [id number] cc: Tao Davis M.D. [address] [address] Patient Name: SYLVIA HERRERA MRN: [id number] date: 1945 Sex: F Assigned Patient Location: MS Current Patient Loca tion: MS Accession/Order Numb er: [id number] Exam Date: 01/07/2025 07:45 Report Date: 01/07/2025 09:42 At the request of: TAO DAVIS Procedure: US renal bladder EXAMINATION: US alda l bladder HISTORY: ARF COMPARISON: No relev ant comparison available. TECHNIQUE: Ultrasoun d examination was performed of the bladder. FINDINGS: Right Kidney: Small in size normal in contour. Diffuse increase in cortical echotexture. The cor chirag measures 0.7 cm. Multiple areas of anechoic echogenicity measuri ng up to 7 mm, cysts are favored. Mild hydronephrosis. No solid cortical mass Height: 6.60 cm Suni th: 8.77 cm Width: 4.36 cm Left Kidney: Small i n size normal in contour. Diffuse increase in cortical echotexture. The cor chirag measures 0.5 cm. Multiple areas of anechoic echogenicity measuri ng 2.1 cm, cysts are favored. No hydronephrosis or solid cortical mass. Scatt ered calcifications Height: 4.20 cm Suni th: 8.15 cm Width: 4.96 cm Urinary bladder: Pre void volume 37 mL. Post void volume 0 mL Ureteral jets: Visua lized bilaterally U S/US renal bladder IMPRESSION: Bilateral renal raman ical atrophy with increased cortical echotexture consistent with medical renal disease Electronically authenticated by: JAZLYN STRICKLAND Date: 01/07/2025 09:42 Dictated By: Marcelino Strickland M.D. Signed By: 01/07/2545 DD/ TD/TT: Health Information Administrator: E coli Shiga Toxin EIA Reviewed date:01/12/2025 08:19:15 PM Interpretation: Performing Lab: Notes/Report: [facility] , E coli Shiga Toxin EIA See Below For Report E coli Shiga Toxin EIA E coli Shiga Toxin EIA Negative E coli Shiga Toxin EIA E coli Shiga Toxin EIA Performed at: [facility] E coli Shiga Toxin EIA E coli Shiga Toxin EIA [address] [place], [place] [id number] E coli Shiga Toxin EIA E coli Shiga Toxin EIA Earring Maker: Ethan Novoa PhD, Phone: [phone] E coli Shiga Toxin EIA Performing Lab: see note - [facility] LB SEE REPORT - Emergency Telecommunications Dispatcher Id information not found for OBX-specific reproducer legend CBC AUTO DIFF Reviewed date:09/07/2024 02:54:16 PM Interpretation: Performing Lab: Notes/Report: [facility] , White Blood Count 11.0 4.0-11.0 10 3/uL Red Blood Count 3.75 4.20-5.40 10 6/uL Hemoglobin 10.6 12.0-16.0 g/dL Hematocrit 33.8 36.0-48.0 % Mean Corpuscular Volume 90.1 81.0-99.0 fL Mean Corpuscular Hemoglobin 28.3 26.7-34.0 pg Mean Corpuscular HGB Conc 31.4 29.9-35.2 g/dL Red Cell Distribution Width 13.1 11.0-15.0 % Platelet Count 232 150-450 10 3/uL Mean Platelet Volume 10.7 9.5-13.5 fL Neutrophils Percent Auto 78.2 43.0-75.0 % Lymphocytes Percent Auto 9.3 20.5-60.0 % Monocytes Percent Auto 11.1 1.7-12.0 % Eosinophils Percent Auto 0.8 0.9-7.0 % Basophils Percent Auto 0.2 0.2-2.0 % Immature Granulocytes Pct Auto 0.4 0.0-0.5 % Neutrophils Absolute Auto 8.6 1.4-6.5 10 3/uL Lymphocytes Absolute Auto 1.0 1.2-3.8 10 3/uL Monocytes Absolute Auto 1.2 0.3-0.8 10 3/uL Eosinophils Absolute Auto 0.1 0.0-0.7 10 3/uL Basophils Absolute Auto 0.0 0.0-0.1 10 3/uL Immature Granulocytes Abs Auto 0.04 0.00-0.03 10 3/uL Performing Lab: see note - [facility] LB UA RANDOM W or MICROSCOPIC Reviewed date:08/14/2024 04:18:18 PM Interpretation: Performing Lab: Notes/Report: [facility] , Color Urine YELLOW YELLOW Clarity Urine CLEAR CLEAR Specific [place] Urine 1.025 1.005-1.025 pH Urine 5.5 5.0-9.0 Protein Urine 30 NEG/TRACE mg/dL Glucose Urine UA NEGATIVE NEGATIVE mg/dL Bilirubin Urine NEGATIVE NEGATIVE Ketones Urine TRACE NEGATIVE mg/dL Blood Urine NEGATIVE NEGATIVE Nitrite Urine NEGATIVE NEGATIVE Urobilinogen Urine 0.2 0.2-1.0 EU/dL Leukocyte Esterase Urine SMALL NEGATIVE WBC Urine 10-20 NONE SEEN #/HPF RBC Urine NONE SEEN 0-2 #/HPF Bacteria Urine SMALL NONE SEEN #/HPF Mucus Urine NONE SEEN NONE SEEN Squamous Epithelial Cell Urine FEW NONE/RARE #/LPF Urine Culture Indicated ALREADY ORDERED Performing Lab: see note ML - [facility] LB ECG 12 lead Reviewed date:08/03/2024 02:13:55 PM Interpretation: Performing Lab: Notes/Report: Source Facility: [place] [address] [place] [address] Electrocardiograph Report Signed Patient: SYLVIA HERRERA MR#: [id number] : 1945 Acct:[id number] Age/Sex: 78 / F ADM Date: 08/02/24 Loc: ER Attending Dr: Ordering Physician: Cristhian Aden Date of Service: 08/02/24 Procedure(s): ECG 12 lead Accession Number(s): [id number] cc: [facility] Test Date: 2024-08-02 Pat Name: SYLVIA HERRERA Department: Room: - Gender: Female Handling Tech: : 1945 Requested By: TAO DAVIS Order Number: [id number] Reading MD: TAO DAVIS Measurements Intervals [place] Rate: 72 P: 35 NC: 168 QRS: 79 QRSD: 100 T: 1 QT: 400 QTc: 424 Interpretive Statements 1100 Sinus rhythm 2440 Incomplete right bundle branch block Non-Specific T wave inversion in III 9150 abnormal ECG Compared to ECG 12/30/2023 16:28:00 No significant changes Electronically Signed On 08-03-2024 12:34:57 EDT by TAO DAVIS Dictated By: Tao Davis M.D. Signed By: 08/03/24 1235 DD/ 1655 TD/TT: Health Information Administrator: [place] [address] Electrocardiograph Report Signed Patient: SYLVIA HERRERA MR#: [id number] : 1945 Acct:[id number] Age/Sex: 78 / F ADM Date: 08/02/24 Loc: ER Attending Dr: Ordering Physician: Cristhian Aden Date of Service: 08/02/24 Procedure(s): ECG 12 lead Accession Number(s): [id number] cc: [facility] Test Date: 2024-08-02 Pat Name: SYLVIA MOTA Deedee Department: 41 Room: - Gender: Female Handling Tech: : 1945 Requ ested By: TAO DAVIS Order Number: [id number] Reading MD: TAO DAVIS Measurements Intervals [place] Rate: 72 P: 35 NC: 168 QRS: 79 QRSD: 100 T: 1 QT: 400 QTc: 424 Interpretive Statements 1100 Sinus rhythm 2440 Incomplete righ t bundle branch block Non-Specific T wave inversion in III 9150 abnormal ECG Compared to ECG 12/30/2023 16:28:00 No significant changes Electronically Kelly d On 08-03-2024 12:34:57 EDT by TAO DAVIS Dictated By: Jordin Davis M.D. Signed By: 08/03/24 1235 DD/ 1652 TD/TT: Health Information Administrator: Urine Culture, Routine Reviewed date:08/05/2024 08:31:32 PM Interpretation: Performing Lab: Notes/Report: [facility] , Urine Culture, Routine See Below For Report Urine Culture, Routine Organism: Gram negative rick : O:GNR Isolated O:RAOORN Isolated Organism: 1.2 Antibiotic Interpretation ROWAN Status Urine Culture, Routine *ABNORMAL* Urine Culture, Routine Organism: Gram negative rick : O:GNR Isolated O:RAOORN Isolated Organism: 1.2 Antibiotic Interpretation ROWAN Status Urine Culture, Routine Greater than 100, 000 colony forming units per mL Urine Culture, Routine Organism: Gram negative rick : O:GNR Isolated O:RAOORN Isolated Organism: 1.2 Antibiotic Interpretation ROWAN Status Urine Culture, Routine Gram negative rick Urine Culture, Routine Organism: Gram negative rick : O:GNR Isolated O:RAOORN Isolated Organism: 1.2 Antibiotic Interpretation ROWAN Status Urine Culture, Routine Organism: Raoulte lla ornithinolytica : Urine Culture, Routine Organism: Gram negative rick : O:GNR Isolated O:RAOORN Isolated Organism: 1.2 Antibiotic Interpretation ROWAN Status Urine Culture, Routine *ABNORMAL* Urine Culture, Routine Organism: Gram negative rick : O:GNR Isolated O:RAOORN Isolated Organism: 1.2 Antibiotic Interpretation ROWAN Status Urine Culture, Routine Greater than 100, 000 colony forming units per mL Urine Culture, Routine Organism: Gram negative rick : O:GNR Isolated O:RAOORN Isolated Organism: 1.2 Antibiotic Interpretation ROWAN Status Urine Culture, Routine Raoultella ornithinolytica Urine Culture, Routine Organism: Gram negative rick : O:GNR Isolated O:RAOORN Isolated Organism: 1.2 Antibiotic Interpretation ROWAN Status Urine Culture, Routine See Below For Report Urine Culture, Routine Organism: Gram negative rick : O:GNR Isolated O:RAOORN Isolated Organism: 1.2 Antibiotic Interpretation ROWAN Status Urine Culture, Routine See Below For Report Urine Culture, Routine Organism: Gram negative rick : O:GNR Isolated O:RAOORN Isolated Organism: 1.2 Antibiotic Interpretation ROWAN Status Urine Culture, Routine [facility], Routine Organism: Gram negative rick : O:GNR Isolated O:RAOORN Isolated Organism: 1.2 Antibiotic Interpretation ROWAN Status Urine Culture, Routine [address] [place], [place] [id number] Urine Culture, Routine Organism: Gram negative rick : O:GNR Isolated O:RAOORN Isolated Organism: 1.2 Antibiotic Interpretation ROWAN Status Urine Culture, Routine Earring Maker: Ethan Novoa PhD, Phone: [phone] Urine Culture, Routine Organism: Gram negative rick : O:GNR Isolated O:RAOORN Isolated Organism: 1.2 Antibiotic Interpretation ROWAN Status Urine Culture, Routine See Below For Report Urine Culture, Routine Organism: Gram negative rick : O:GNR Isolated O:RAOORN Isolated Organism: 1.2 Antibiotic Interpretation ROWAN Status Urine Culture, Routine AMOXICILLIN/CLAVU LANIC ACID S F Urine Culture, Routine Organism: Gram negative rick : O:GNR Isolated O:RAOORN Isolated Organism: 1.2 Antibiotic Interpretation ROWAN Status Urine Culture, Routine Ampicillin R F Urine Culture, Routine Organism: Gram negative rick : O:GNR Isolated O:RAOORN Isolated Organism: 1.2 Antibiotic Interpretation ROWAN Status Urine Culture, Routine Cefepime S F Urine Culture, Routine Organism: Gram negative rick : O:GNR Isolated O:RAOORN Isolated Organism: 1.2 Antibiotic Interpretation ROWAN Status Urine Culture, Routine Ceftriaxone S F Urine Culture, Routine Organism: Gram negative rick : O:GNR Isolated O:RAOORN Isolated Organism: 1.2 Antibiotic Interpretation ROWAN Status Urine Culture, Routine Cefuroxime S F Urine Culture, Routine Organism: Gram negative rick : O:GNR Isolated O:RAOORN Isolated Organism: 1.2 Antibiotic Interpretation ROWAN Status Urine Culture, Routine Ciprofloxacin S F Urine Culture, Routine Organism: Gram negative rick : O:GNR Isolated O:RAOORN Isolated Organism: 1.2 Antibiotic Interpretation ROWAN Status Urine Culture, Routine Gentamicin S F Urine Culture, Routine Organism: Gram negative rick : O:GNR Isolated O:RAOORN Isolated Organism: 1.2 Antibiotic Interpretation ROWAN Status Urine Culture, Routine Nitrofurantoin S F Urine Culture, Routine Organism: Gram negative rick : O:GNR Isolated O:RAOORN Isolated Organism: 1.2 Antibiotic Interpretation ROWAN Status Urine Culture, Routine Tetracycline S F Urine Culture, Routine Organism: Gram negative rick : O:GNR Isolated O:RAOORN Isolated Organism: 1.2 Antibiotic Interpretation ROWAN Status Urine Culture, Routine Tobramycin S F Urine Culture, Routine Organism: Gram negative rick : O:GNR Isolated O:RAOORN Isolated Organism: 1.2 Antibiotic Interpretation ROWAN Status Performing Lab: see note LC - [facility] LB SEE REPORT - Emergency Telecommunications Dispatcher Id information not found for OBX-specific reproducer legend SARS-CoV-2 Ag* Reviewed date:08/03/2024 11:58:29 AM Interpretation: Performing Lab: Notes/Report: [facility] , SARS-CoV-2 Ag NEGATIVE NEGATIVE This test has not been FDA cleared [...] is terminated or authorization is revoked sooner. Performing Lab: see note ML - [facility] LB Troponin I High Sensitivity Reviewed date:08/03/2024 11:58:29 AM Interpretation: Performing Lab: Notes/Report: [facility] , Troponin I High Sensitivity 5.6 4.0-51.3 pg/mL CUT-OFF POINTS HAVE BEEN ESTABLISHED BASED ON THE FOURTH UNIVERSAL DEFINITION OF MYOCARDIAL INFARCTION. THE UPPER REFERENCE LIMIT (URL) OF TROPONIN, DEFINED THE 99TH PERCENTILE OF cTnI DISTRIBUTION IN A REFERENCE POPULATION, HAS BEEN CONFIRMED THE DECISION THRESHOLD FOR PR DIAGNOSIS. 99TH PERCENTILE = 51.4 PG/ML NOTE: HIGH-SENSITIVITY TROPONIN ASSAY IS NOT INTENDED TO BE USED IN ISOLATION BUT SHOULD BE INTERPRETED IN CONJUNCTION WITH OTHER DIAGNOSTIC AND CLINICAL INFORMATION. Performing Lab: see note ML - [facility] LB TSH W/ REFLEX FT4 Reviewed date:01/08/2025 08:53:39 AM Interpretation: Performing Lab: Notes/Report: Comment morning blood? [facility] , TSH W/ REFLEX FT4 0.885 0.358-3.740 uIU/mL Performing Lab: see note ML - [facility] LB URINE MICROSCOPIC ONLY Reviewed date:08/03/2024 11:58:29 AM Interpretation: Performing Lab: Notes/Report: [facility] , WBC Urine 10-20 NONE SEEN #/HPF RBC Urine 0-2 0-2 #/HPF Bacteria Urine LARGE NONE SEEN #/HPF Mucus Urine NONE SEEN NONE SEEN Squamous Epithelial Cell Urine RARE NONE/RARE #/LPF Transitional Epi Cells Urine RARE NONE SEEN #/LPF Crystals Seen? None Seen None Seen #/HPF Cast Seen? NONE SEEN NONE SEEN #/LPF Urine Culture Indicated YES Performing Lab: see note - [facility] PROF CHEM 8 (BAS METB) Reviewed date:03/02/2025 04:42:25 PM Interpretation: Performing Lab: Notes/Report: [facility] , Sodium 139 136-145 mmol/L Potassium 4.6 3.5-5.1 mmol/L Chloride 102 98-107 mmol/L Carbon Dioxide 25.2 21.0-32.0 mmol/L Anion Gap 16.4 Glucose 149 74-106 mg/dL Blood Urea Nitrogen 77.0 7.0-18.0 mg/dL RESULT S CALLED TO RUPESH MCCONNELL MA Creatinine 3.45 0.55-1.02 mg/dL Estimated GFR ( Kasandra 16 >=60 mL/min/1.73m 2 Estimated GFR (Non- Ila 13 >=60 mL/min/1.73m 2 BUN Creatinine Ratio 22.3 Calcium 7.4 8.5-10.1 mg/dL Performing Lab: see note - [facility] LB UA (CLEAN or CATCH) TEACHER DRAMATICS or M ICRO IF IND. Reviewed date:08/03/2024 11:58:29 AM Interpretation: Performing Lab: Notes/Report: [facility] , Color Urine LT. YELLOW YELLOW Clarity Urine CLEAR CLEAR Specific [place] Urine 1.010 1.005-1.025 pH Urine 6.0 5.0-9.0 Protein Urine NEGATIVE NEG/TRACE mg/dL Glucose Urine UA NEGATIVE NEGATIVE mg/dL Bilirubin Urine NEGATIVE NEGATIVE Ketones Urine NEGATIVE NEGATIVE mg/dL Blood Urine TRACE-I NEGATIVE Nitrite Urine POSITIVE NEGATIVE Urobilinogen Urine 0.2 0.2-1.0 EU/dL Leukocyte Esterase Urine MODERATE NEGATIVE Urine Microscopic Indicated YES Performing Lab: see note - [facility] LB PROF 14(COMP METB) Reviewed date:03/03/2025 07:52:00 PM Interpretation: Performing Lab: Notes/Report: [facility] , Sodium 137 136-145 mmol/L Potassium 4.5 3.5-5.1 mmol/L Chloride 100 98-107 mmol/L Carbon Dioxide 26.5 21.0-32.0 mmol/L Anion Gap 15.0 Glucose 138 74-106 mg/dL Blood Urea Nitrogen 65.0 7.0-18.0 mg/dL Creatinine 3.08 0.55-1.02 mg/dL Estimated GFR ( Kasandra 18 >=60 mL/min/1.73m 2 Estimated GFR (Non- Ila 15 >=60 mL/min/1.73m 2 BUN Creatinine Ratio 21.1 Calcium 7.3 8.5-10.1 mg/dL Bilirubin Total 0.5 0.2-1.0 mg/dL Aspartate Amino Transferase 29 15-37 U/L Alanine Aminotransferase 22 14-59 U/L Alkaline Phosphatase 328 46-116 U/L Total Protein 6.9 6.4-8.2 g/dL Albumin Level 3.4 3.4-5.0 g/dL Globulin 3.5 Albumin Globulin Ratio 1.0 Performing Lab: see note ML - [facility] LB TSH Reviewed date:08/03/2024 11:58:29 AM Interpretation: Performing Lab: Notes/Report: [facility] , Thyroid Stimulating Hormone 1.916 0.358-3.740 uIU/mL Performing Lab: see note - [facility] PROF CHEM 8 (BAS METB) Reviewed date:03/07/2025 03:40:48 PM Interpretation: Performing Lab: Notes/Report: [facility] , Sodium 141 136-145 mmol/L Potassium 4.5 3.5-5.1 mmol/L Chloride 104 98-107 mmol/L Carbon Dioxide 22.7 21.0-32.0 mmol/L Anion Gap 18.8 Glucose 123 74-106 mg/dL Blood Urea Nitrogen 60.0 7.0-18.0 mg/dL Creatinine 3.07 0.55-1.02 mg/dL Estimated GFR ( Kasandra 18 >=60 mL/min/1.73m 2 Estimated GFR (Non- Ila 15 >=60 mL/min/1.73m 2 BUN Creatinine Ratio 19.5 Calcium 7.7 8.5-10.1 mg/dL Performing Lab: see note ML - [facility] LB MAGNESIUM Reviewed date:03/15/2025 08:37:17 PM Interpretation: Performing Lab: Notes/Report: [facility] , Magnesium 1.4 1.8-2.4 mg/dL Performing Lab: see note ML - [facility] LB PHOSPHORUS Reviewed date:03/15/2025 08:37:17 PM Interpretation: Performing Lab: Notes/Report: [facility] , Phosphorus 3.6 2.6-4.7 mg/dL Performing Lab: see note ML - [facility] LB PROF 14(COMP METB) Reviewed date:03/15/2025 08:37:17 PM Interpretation: Performing Lab: Notes/Report: [facility] , Sodium 133 136-145 mmol/L Potassium 4.9 3.5-5.1 mmol/L Chloride 102 98-107 mmol/L Carbon Dioxide 20.0 21.0-32.0 mmol/L Anion Gap 15.9 Glucose 120 74-106 mg/dL Blood Urea Nitrogen 61.0 7.0-18.0 mg/dL Creatinine 2.78 0.55-1.02 mg/dL Estimated GFR ( Kasandra 20 >=60 mL/min/1.73m 2 Estimated GFR (Non- Ila 16 >=60 mL/min/1.73m 2 BUN Creatinine Ratio 21.9 Calcium 7.9 8.5-10.1 mg/dL Bilirubin Total 0.4 0.2-1.0 mg/dL Aspartate Amino Transferase 25 15-37 U/L Alanine Aminotransferase 18 14-59 U/L Alkaline Phosphatase 331 46-116 U/L Total Protein 6.6 6.4-8.2 g/dL Albumin Level 3.2 3.4-5.0 g/dL Globulin 3.4 Albumin Globulin Ratio 0.9 Performing Lab: see note ML - [facility] [place] LB PROF 14(COMP METB) Reviewed date:08/03/2024 11:58:29 AM Interpretation: Performing Lab: Notes/Report: [facility] , Sodium 135 136-145 mmol/L Potassium 4.0 3.5-5.1 mmol/L Chloride 101 98-107 mmol/L Carbon Dioxide 20.4 21.0-32.0 mmol/L Anion Gap 17.6 Glucose 123 74-106 mg/dL Blood Urea Nitrogen 30.0 7.0-18.0 mg/dL Creatinine 2.20 0.55-1.02 mg/dL Estimated GFR ( Kasandra 26 >=60 Estimated GFR (Non- Ila 22 >=60 BUN Creatinine Ratio 13.6 Calcium 8.6 8.5-10.1 mg/dL Bilirubin Total 0.7 0.2-1.0 mg/dL Aspartate Amino Transferase 24 15-37 U/L Alanine Aminotransferase 31 14-59 U/L Alkaline Phosphatase 222 46-116 U/L Total Protein 6.4 6.4-8.2 g/dL Albumin Level 3.7 3.4-5.0 g/dL Globulin 2.7 Albumin Globulin Ratio 1.4 Performing Lab: see note ML - [facility] LB LIPASE Reviewed date:08/03/2024 11:58:29 AM Interpretation: Performing Lab: Notes/Report: [facility] , Lipase 456.0 16.0-77.0 U/L Performing Lab: see note ML - [facility] LB LACTATE or LACTIC ACID Reviewed date:08/03/2024 11:58:29 AM Interpretation: Performing Lab: Notes/Report: [facility] , Lactate/Lactic Acid 0.8 0.4-2.0 mmol/L Performing Lab: see note ML - [facility] LB CBC AUTO DIFF Reviewed date:08/03/2024 11:58:29 AM Interpretation: Performing Lab: Notes/Report: [facility] , White Blood Count 6.4 4.0-11.0 10 3/uL Red Blood Count 3.81 4.20-5.40 10 6/uL Hemoglobin 11.1 12.0-16.0 g/dL Hematocrit 35.6 36.0-48.0 % Mean Corpuscular Volume 93.4 81.0-99.0 fL Mean Corpuscular Hemoglobin 29.1 26.7-34.0 pg Mean Corpuscular HGB Conc 31.2 29.9-35.2 g/dL Red Cell Distribution Width 12.9 11.0-15.0 % Platelet Count 204 150-450 10 3/uL Mean Platelet Volume 10.4 9.5-13.5 fL Neutrophils Percent Auto 74.7 43.0-75.0 % Lymphocytes Percent Auto 13.0 20.5-60.0 % Monocytes Percent Auto 10.6 1.7-12.0 % Eosinophils Percent Auto 1.1 0.9-7.0 % Basophils Percent Auto 0.3 0.2-2.0 % Immature Granulocytes Pct Auto 0.3 0.0-0.5 % Neutrophils Absolute Auto 4.8 1.4-6.5 10 3/uL Lymphocytes Absolute Auto 0.8 1.2-3.8 10 3/uL Monocytes Absolute Auto 0.7 0.3-0.8 10 3/uL Eosinophils Absolute Auto 0.1 0.0-0.7 10 3/uL Basophils Absolute Auto 0.0 0.0-0.1 10 3/uL Immature Granulocytes Abs Auto 0.02 0.00-0.03 10 3/uL Performing Lab: see note ML - [facility] CA echo doppler complete Reviewed date:07/13/2024 08:30:44 PM Interpretation: Performing Lab: Notes/Report: Source Facility: [facility]-[address] [place] [address] [place] [address] Cardiology Report Signed Patient: SYLVIA HERRERA MR#: [id number] : 1945 Acct:[id number] Age/Sex: 78 / F ADM Date: 07/13/24 Loc: CARD Attending Dr: ANISHA DINH Ordering Physician: ANISHA DINH Date of Service: 07/13/24 Procedure(s): CA echo doppler complete Accession Number(s): [id number] cc: Tao Davis M.D.; ANIHSA DINH Patient Name: SYLVIA HERRERA MR#: [id number] : 1945 Exam Date: 07/13/2024 Ordering Doctor: DR ANISHA DINH M.D. ECHOCARDIOGRAM REPORT PROCEDURE: CA ECHO DOPPLER COMPLETE INDICATIONS: S/P heart transplant (2005), Syncope COMPARISON: None. DESCRIPTION: COMPLETE ECHOCARDIOGRAM Real-time transthoracic echocardiography with 2D, M-mode, spectral and color flow Doppler performed. QUALITY: Technical quality was good. LEFT VENTRICLE: Normal chamber size. Mild left ventricular hypertrophy. LV EF: Global left ventricular systolic function is hyperdynamic; visually estimated ejection fraction is 65 to 70%. No significant wall motion abnormalities. DIASTOLIC: Unable to be assessed. ATRIAL SEPTUM: Inadequately seen. LEFT ATRIUM: Enlarged consistent with heart transplant. RIGHT ATRIUM: Enlarged consistent with heart transplant. RIGHT VENTRICLE: Normal chamber size. Normal right ventricular systolic function. TRICUSPID VALVE: Normal mobility and thickness. No stenosis with mild regurgitation. Mild pulmonary hypertension. RVSP 39mmHg. MITRAL VALVE: Normal mobility and thickness. No evidence of mitral valve stenosis. There is no mitral annular calcification. Trivial mitral regurgitation. AORTIC VALVE: Normal trileaflet appearance. No visible sclerosis. Normal leaflet mobility. No evidence of aortic valve stenosis. Mild aortic regurgitation. AORTIC ROOT: Normal diameter and appearance. PULMONIC VALVE: Normal thickness and mobility. No stenosis. No regurgitation. PERICARDIUM: No evidence of pericardial effusion. IVC: Collapses with inspirations. Normal size. CONCLUSION: 1. Global left ventricular systolic function is hyperdynamic; visually estimated ejection fraction is 65 to 70% 2. The right ventricle is small in size with normal systolic function 3. Mild left ventricular hypertrophy 4. Mild tricuspid regurgitation 5. Mildly elevated right ventricular systolic pressure; RVSP 39 mmHg 6. Mild aortic valve regurgitation Adult Echocardiography Procedure Report Left Ventricle LVEDD (3.7 - 5.6 cm): 3.74 cm LVESD (2.2 - 4.0 cm): 2.42 cm LVIVS thickness (0.6 - 1.2 cm): 1.36 cm LVPW thickness (0.5 - 1.0 cm): 1.19 cm e': 0.10 m/s E - e': 14.25 LVOT Max Gradient: 3.39 mm[Hg] LVOT Area (cm2): 0.92 m/s Peak Velocity (LVOT): 0.92 m/s Mean Velocity (LVOT): 0.73 m/s LVOT Diameter 1.80 cm Left Ventricular Ejection Fraction: 77.13 % Left Atrium LA Volume Index (2D A2C): 60.34 ml/m2 Left Atrium Systolic Dimension: 3.88 cm Mitral Valve MV E to A Ratio: 3.40 Mitral Valve A-Wave Peak Velocity: 0.40 m/s Mitral Valve E-Wave Peak Velocity: 1.36 m/s Right Ventricle RV Internal Diastolic Dimension: 3.40 cm Aorta AO Root Diam: 3.15 cm Ascending Ao Diam: 2.63 cm Aortic Valve AoV Area (Peak Chris): 1.77 cm2, 1.77 cm2 AoV Area (VTI): 1.82 cm2, 1.82 cm2 Peak Velocity(Antegrade Flow): 1.32 m/s Peak Gradient(Antegrade Flow): 7.01 mm[Hg] Mean Velocity(Antegrade Flow): 0.99 m/s Mean Gradient(Antegrade Flow): 4.39 mm[Hg] Velocity Time Integral: 33.42 cm Tricuspid Valve Peak Velocity (Regurgitant Flow): 3.01 m/s, 2.52 m/s, 2.78 m/s, 2.80 m/s Pulmonic Valve Peak Velocity: 0.99 m/s Peak Gradient: 4.78 mm[Hg], 3.14 mm[Hg] Right Atrium Right Atrium Systolic Pressure: 38.55 ml, 38.55 ml Dictated by: Michael Nolan M.D. on 07/13/2024 at 12:44 Approved by: Michael Nolan M.D. on 07/13/2024 at 12:47 Dictated By: Michael Nolan M.D. Signed By: 07/13/24 1248 DD/ 1247 TD/TT: Health Information Administrator: [place] [address] Cardiology Report Signed Patient: SYLVIA HERRERA MR#: [id number] : 1945 Acct:[id number] Age/Sex: 78 / F ADM Date: 07/13/24 Loc: CARD Attending Dr: ANISHA DINH Ordering Physician: ANISHA DINH Date of Service: 07/13/24 Procedure(s): CA ech o doppler complete Accession Number(s): [id number] cc: Tao Davis M.D. ; ANISHA DINH Patient Name: SYLVIA HERRERA MR#: [id number] : 1945 Exam Date: 07/13/2024 Ordering Doctor: DR ANISHA DINH M.D. ECHOCARDIOGRAM REPORT PROCEDURE: CA ECHO DOPPLER COMPLETE INDICATIONS: S/P hea rt transplant (2005), Syncope COMPARISON: None. DESCRIPTION: COMPLET E ECHOCARDIOGRAM Real-time transthoracic echocardiography wit h 2D, M-mode, spectral and color flow Doppler performed. QUALITY: Technical quality was good. LEFT VENTRICLE: Norm al chamber size. Mild left ventricular hypertrophy. LV EF: Global left ventricular systolic function is hyperdynamic; visually estimated ejection fraction is 65 to 70%. No significant wall motion abnormalities. DIASTOLIC: Unable to be assessed. ATRIAL SEPTUM: Inadequately seen. LEFT ATRIUM: Enlarge d consistent with heart transplant. RIGHT ATRIUM: Enlarg ed consistent with heart transplant. RIGHT VENTRICLE: Nor mal chamber size. Normal right ventricular systolic function. TRICUSPID VALVE: Nor mal mobility and thickness. No stenosis with mild regurgitation. Mild pulmonary hypertension. RVSP 39mmHg. MITRAL VALVE: Normal mobility and thickness. No evidence of mitral valve stenosis. There is n o mitral annular calcification. Trivial mitral regurgitation. AORTIC VALVE: Mayda l trileaflet appearance. No visible sclerosis. Normal leaflet mobility. No evidence of aortic valve stenosis. Mild aortic regurgitation. AORTIC ROOT: Normal diameter and appearance. PULMONIC VALVE: Norm al thickness and mobility. No stenosis. No regurgitation. PERICARDIUM: No evid ence of pericardial effusion. IVC: Collapses with inspirations. Normal size. CONCLUSION: 1. Global left ventricular systolic function is hyperdynamic; visually estimated ejection fraction is 65 to 70% 2. The right ventric le is small in size with normal systolic function 3. Mild left ventric ular hypertrophy 4. Mild tricuspid regurgitation 5. Mildly elevated r ight ventricular systolic pressure; RVSP 39 mmHg 6. Mild aortic valve regurgitation Adult Echocardiograp hy Procedure Report Left Ventricle LVEDD (3.7 - 5.6 cm) : 3.74 cm LVESD (2.2 - 4.0 cm) : 2.42 cm LVIVS thickness (0.6 - 1.2 cm): 1.36 cm LVPW thickness (0.5 - 1.0 cm): 1.19 cm e': 0.10 m/s E - e': 14.25 LVOT Max Gradient: 3 .39 mm[Hg] LVOT Area (cm2): 0.92 m/s Peak Velocity (LVOT) : 0.92 m/s Mean Velocity (LVOT) : 0.73 m/s LVOT Diameter 1.80 cm Left Ventricular Eje ction Fraction: 77.13 % Left Atrium LA Volume Index (2D A2C): 60.34 ml/m2 Left Atrium Systolic Dimension: 3.88 cm Mitral Valve MV E to A Ratio: 3.40 Mitral Valve A-Wave Peak Velocity: 0.40 m/s Mitral Valve E-Wave Peak Velocity: 1.36 m/s Right Ventricle RV Internal Diastoli c Dimension: 3.40 cm Aorta AO Root Diam: 3.15 cm Ascending Ao Diam: 2 .63 cm Aortic Valve AoV Area (Peak Chris): 1.77 cm2, 1.77 cm2 AoV Area (VTI): 1.82 cm2, 1.82 cm2 Peak Velocity(Antegr dany Flow): 1.32 m/s Peak Gradient(Antegr dany Flow): 7.01 mm[Hg] Mean Velocity(Antegr dany Flow): 0.99 m/s Mean Gradient(Antegr dany Flow): 4.39 mm[Hg] Velocity Time Integr al: 33.42 cm Tricuspid Valve Peak Velocity (Regurgitant Flow): 3.01 m/s, 2.52 m/s, 2.78 m/s, 2.80 m/s Pulmonic Valve Peak Velocity: 0.99 m/s Peak Gradient: 4.78 mm[Hg], 3.14 mm[Hg] Right Atrium Right Atrium Systoli c Pressure: 38.55 ml, 38.55 ml Dictated by: Michael Nolan M.D. on 07/13/2024 at 12:44 Approved by: Michael Nolan M.D. on 07/13/2024 at 12:47 Dictated By: Michael Nolan M.D. Signed By: 07/13/24 1248 DD/ 1247 TD/TT: Health Information Administrator: Salmonella/Shigella Screen Reviewed date:07/13/2024 04:10:06 PM Interpretation: Performing Lab: Notes/Report: [facility] , Salmonella/Shigella Screen See Below For Report Salmonella/Shigella Screen Salmonella/Shigella Screen No Salmonella or Shigella recovered. Salmonella/Shigella Screen Performing Lab: see note - [facility] LB E coli Shiga Toxin EIA Reviewed date:07/13/2024 04:10:06 PM Interpretation: Performing Lab: Notes/Report: [facility] , E coli Shiga Toxin EIA See Below For Report E coli Shiga Toxin EIA WILL FOLLOW E coli Shiga Toxin EIA Negative E coli Shiga Toxin EIA WILL FOLLOW E coli Shiga Toxin EIA Performed at: [facility] E coli Shiga Toxin EIA WILL FOLLOW E coli Shiga Toxin EIA [address] [place] [phone] E coli Shiga Toxin EIA WILL FOLLOW E coli Shiga Toxin EIA Earring Maker: Ethan Novoa PhD, Phone: [phone] E coli Shiga Toxin EIA WILL FOLLOW Performing Lab: see note - [facility] LB SEE REPORT - Emergency Telecommunications Dispatcher Id information not found for OBX-specific reproducer legend C. Difficile PCR Reviewed date:07/10/2024 08:30:02 AM Interpretation: Performing Lab: Notes/Report: [facility] , C. Difficile PCR NEGATIVE NEGATIVE Performing Lab: see note ML - [facility] LB PROF 14(COMP METB) Reviewed date:07/09/2024 10:02:18 AM Interpretation: Performing Lab: Notes/Report: [facility] , Sodium 134 136-145 mmol/L Potassium 4.3 3.5-5.1 mmol/L Chloride 101 98-107 mmol/L Carbon Dioxide 19.2 21.0-32.0 mmol/L Anion Gap 18.1 Glucose 127 74-106 mg/dL Blood Urea Nitrogen 34.0 7.0-18.0 mg/dL Creatinine 2.21 0.55-1.02 mg/dL Estimated GFR ( Kasandra 26 >=60 Estimated GFR (Non- Ila 21 >=60 BUN Creatinine Ratio 15.4 Calcium 8.5 8.5-10.1 mg/dL Bilirubin Total 0.9 0.2-1.0 mg/dL Aspartate Amino Transferase 31 15-37 U/L Alanine Aminotransferase 30 14-59 U/L Alkaline Phosphatase 214 46-116 U/L Total Protein 6.3 6.4-8.2 g/dL Albumin Level 3.7 3.4-5.0 g/dL Globulin 2.6 Albumin Globulin Ratio 1.4 Performing Lab: see note ML - [facility] LB MAGNESIUM Reviewed date:07/09/2024 10:02:18 AM Interpretation: Performing Lab: Notes/Report: [facility] , Magnesium 1.1 1.8-2.4 mg/dL Performing Lab: see note ML - [facility] LB CBC AUTO DIFF Reviewed date:07/09/2024 10:02:18 AM Interpretation: Performing Lab: Notes/Report: [facility] , White Blood Count 7.8 4.0-11.0 10 3/uL Red Blood Count 4.09 4.20-5.40 10 6/uL Hemoglobin 11.8 12.0-16.0 g/dL Hematocrit 36.9 36.0-48.0 % Mean Corpuscular Volume 90.2 81.0-99.0 fL Mean Corpuscular Hemoglobin 28.9 26.7-34.0 pg Mean Corpuscular HGB Conc 32.0 29.9-35.2 g/dL Red Cell Distribution Width 13.0 11.0-15.0 % Platelet Count 191 150-450 10 3/uL Mean Platelet Volume 10.4 9.5-13.5 fL Neutrophils Percent Auto 79.7 43.0-75.0 % Lymphocytes Percent Auto 10.2 20.5-60.0 % Monocytes Percent Auto 8.7 1.7-12.0 % Eosinophils Percent Auto 1.0 0.9-7.0 % Basophils Percent Auto 0.0 0.2-2.0 % Immature Granulocytes Pct Auto 0.4 0.0-0.5 % Neutrophils Absolute Auto 6.2 1.4-6.5 10 3/uL Lymphocytes Absolute Auto 0.8 1.2-3.8 10 3/uL Monocytes Absolute Auto 0.7 0.3-0.8 10 3/uL Eosinophils Absolute Auto 0.1 0.0-0.7 10 3/uL Basophils Absolute Auto 0.0 0.0-0.1 10 3/uL Immature Granulocytes Abs Auto 0.03 0.00-0.03 10 3/uL Performing Lab: see note ML - [facility] Tacrolimus (FK506), Blood Reviewed date:07/12/2024 10:23:10 AM Interpretation: Performing Lab: Notes/Report: [facility] , Tacrolimus (FK506), Blood 13.7 2.0-20.0 ng/mL This test was developed and its performance characteristics determined by [facility]. It has not been cleared or approved by the Food and Drug Administration. Trough (immediately following transplant) 15.0 Trough (steady state, 2 weeks or more after transplant): 3.0 - 8.0 Performed by LC-MS/MS technology. Performed at: [address] [id number] Earring Maker: Erica Roa MD, Phone: [phone] Performing Lab: see [facility] - [facility] UA RANDOM W or MICROSCOPIC Reviewed date:07/02/2024 01:57:07 PM Interpretation: Performing Lab: Notes/Report: [facility] , Color Urine LT. YELLOW YELLOW Clarity Urine CLEAR CLEAR Specific [place] Urine 1.020 1.005-1.025 pH Urine 6.0 5.0-9.0 Protein Urine 30 NEG/TRACE mg/dL Glucose Urine UA NEGATIVE NEGATIVE mg/dL Bilirubin Urine NEGATIVE NEGATIVE Ketones Urine NEGATIVE NEGATIVE mg/dL Blood Urine TRACE-I NEGATIVE Nitrite Urine NEGATIVE NEGATIVE Urobilinogen Urine 0.2 0.2-1.0 EU/dL Leukocyte Esterase Urine MODERATE NEGATIVE WBC Urine 2-5 NONE SEEN #/HPF RBC Urine 0-2 0-2 #/HPF Bacteria Urine SMALL NONE SEEN #/HPF Mucus Urine TRACE NONE SEEN Squamous Epithelial Cell Urine RARE NONE/RARE #/LPF Transitional Epi Cells Urine RARE NONE SEEN #/LPF Crystals Seen? None Seen None Seen #/HPF Cast Seen? NONE SEEN NONE SEEN #/LPF Urine Culture Indicated ALREADY ORDERED Performing Lab: see note ML - [facility] LB TSH Reviewed date:07/02/2024 01:57:07 PM Interpretation: Performing Lab: Notes/Report: [facility] , Thyroid Stimulating Hormone 1.123 0.358-3.740 uIU/mL Performing Lab: see note ML - [facility] LB T4 Reviewed date:07/02/2024 01:57:07 PM Interpretation: Performing Lab: Notes/Report: [facility] , T4 Thyroxine 9.20 4.80-13.90 ug/dL Performing Lab: see note ML - [facility] FREE T3 Reviewed date:07/02/2024 01:57:07 PM Interpretation: Performing Lab: Notes/Report: [facility] , Free T3 2.18 2.18-3.98 pg/mL Performing Lab: see note ML - [facility] Troponin I High Sensitivity Reviewed date:06/18/2024 08:38:12 PM Interpretation: Performing Lab: Notes/Report: [facility] , Troponin I High Sensitivity 5.8 4.0-51.3 pg/mL CUT-OFF POINTS HAVE BEEN ESTABLISHED BASED ON THE FOURTH UNIVERSAL DEFINITION OF MYOCARDIAL INFARCTION. THE UPPER REFERENCE LIMIT (URL) OF TROPONIN, DEFINED THE 99TH PERCENTILE OF cTnI DISTRIBUTION IN A REFERENCE POPULATION, HAS BEEN CONFIRMED THE DECISION THRESHOLD FOR PR DIAGNOSIS. 99TH PERCENTILE = 51.4 PG/ML NOTE: HIGH-SENSITIVITY TROPONIN ASSAY IS NOT INTENDED TO BE USED IN ISOLATION BUT SHOULD BE INTERPRETED IN CONJUNCTION WITH OTHER DIAGNOSTIC AND CLINICAL INFORMATION. Performing Lab: see note ML - [facility] Urine Culture, Routine Reviewed date:06/21/2024 04:48:44 PM Interpretation: Performing Lab: Notes/Report: [facility] , Urine Culture, Routine See Below For Report Urine Culture, Routine Urine Culture, Routine Mixed urogenital boris Urine Culture, Routine Urine Culture, Routine Less than 10,000 colonies/mL Urine Culture, Routine Urine Culture, Routine Performed at: - [facility] [place] Urine Culture, Routine Urine Culture, Routine [address] [place] [phone] Urine Culture, Routine Urine Culture, Routine Earring Maker: Ethan Novoa PhD, Phone: [phone] Urine Culture, Routine Performing Lab: see note LC - [facility] LB SEE REPORT - Emergency Telecommunications Dispatcher Id information not found for OBX-specific reproducer legend URINE MICROSCOPIC ONLY Reviewed date:06/18/2024 08:38:12 PM Interpretation: Performing Lab: Notes/Report: [facility] , WBC Urine 10-20 NONE SEEN #/HPF RBC Urine 0-2 0-2 #/HPF Bacteria Urine TRACE NONE SEEN #/HPF Mucus Urine NONE SEEN NONE SEEN Squamous Epithelial Cell Urine RARE NONE/RARE #/LPF Crystals Seen? None Seen None Seen #/HPF Cast Seen? NONE SEEN NONE SEEN #/LPF Urine Culture Indicated YES Performing Lab: see note ML - [facility] LB UA (CLEAN or CATCH) TEACHER DRAMATICS or M ICRO IF IND. Reviewed date:06/18/2024 08:38:12 PM Interpretation: Performing Lab: Notes/Report: [facility] , Color Urine LT. YELLOW YELLOW Clarity Urine CLEAR CLEAR Specific [place] Urine 1.015 1.005-1.025 pH Urine 6.0 5.0-9.0 Protein Urine 30 NEG/TRACE mg/dL Glucose Urine UA NEGATIVE NEGATIVE mg/dL Bilirubin Urine NEGATIVE NEGATIVE Ketones Urine NEGATIVE NEGATIVE mg/dL Blood Urine NEGATIVE NEGATIVE Nitrite Urine NEGATIVE NEGATIVE Urobilinogen Urine 0.2 0.2-1.0 EU/dL Leukocyte Esterase Urine MODERATE NEGATIVE Urine Microscopic Indicated YES Performing Lab: see note ML - [facility] LB LIPID PROFILE Reviewed date:06/18/2024 08:38:12 PM Interpretation: Performing Lab: Notes/Report: [facility] , Triglycerides 73 <=150 mg/dL Cholesterol 83 <=200 mg/dL HDL Cholesterol 41 40-60 mg/dL > or =60 mg/dl - LOW CARDIOVASCULAR RISK <40 mg/dl - HIGH CARDIOVASCULAR RISK LDL Cholesterol Calculated 27.4 <100 mg/dl OPTIMAL 100-129 mg/dl NEAR OR ABOVE OPTIMAL 130-159 mg/dl BORDERLINE HIGH 160-189 mg/dl HIGH >190 mg/dl VERY HIGH VLDL CHOLESTEROL 14.6 Chol HDL Ratio 2.0 3.3 - 4.4 LOW RISK 4.4 - 7.1 AVERAGE RISK 7.1 - 11.0 MODERATE RISK >11.0 HIGH RISK Performing Lab: see note ML - [facility] LB BOX TEST SENT OUT Reviewed date:06/18/2024 08:38:12 PM Interpretation: Performing Lab: Notes/Report: [facility] , BOX Test Sent Out PT INR/PTT SEE SCANNED REPORT Performing Lab: see note - [facility] LB CT cervical spine wo con Reviewed date:06/18/2024 08:38:12 PM Interpretation: Performing Lab: Notes/Report: Source Facility: [facility]-[address] [place] [address] [address] [address] Scan Report Signed Patient: SYLVIA HERRERA MR#: [id number] : 1945 Acct:[id number] Age/Sex: 78 / F ADM Date: 06/17/24 Loc: ER Attending Dr: Ordering Physician: Adeline Hutchinson Date of Service: 06/17/24 Procedure(s): CT cervical spine wo con Accession Number(s): [id number] cc: Tao Davis M.D. [place] [id number] Patient Name: SYLVIA HERRERA MRN: [id number] date: 1945 Sex: F Assigned Patient Location: ER Current Patient Location: ER Accession/Order Number: [id number] Exam Date: 06/17/2024 21:48 Report Date: 06/17/2024 23:04 At the request of: ADELINE HUTCHINSON Procedure: CT cervical spine wo con INDICATION: 78 years old; Female. Closed head trauma. TECHNIQUE: CT Head (ax/cor/sag reformats). Ionizing radiation dose reduced via iterative reconstruction/FBP blend and body size kV/mA adjustment. Comparison: Head CT dated 12/31/2023. FINDINGS: POSTOPERATIVE CHANGES: None. BRAIN PARENCHYMA: There is a punctate focus of hyperdensity seen in the white matter of the left frontal lobe, image 21/series 5. This is unchanged as compared to the prior examination dated 12/31/2023, image 20/series 5. No intraparenchymal or extra-axial hemorrhage. No mass effect. No midline shift or herniation. There is patchy and confluent low-density in the white matter without mass effect. VENTRICLES/EXTRA-AXIAL SPACES: Normal for patient's age. SINUSES/MASTOIDS: The visualized sinuses are clear. Hypoplastic right frontal sinuses. Maxillary sinuses aren't completely included. Mastoids and middle ears are clear. MSK: No displaced or depressed calvarial fracture. OTHER: No hyperdense intraluminal thrombus is present. TECHNIQUE: CT imaging of the cervical spine was performed. IV contrast: None. Dose reduction techniques were achieved by using automated exposure control and/or adjustment of mA and/or kV according to patient size and/or use of iterative reconstruction technique. COMPARISON: Cervical CT dated 12/30/2023. FINDINGS: POSTOPERATIVE CHANGES: None. ALIGNMENT: Nonspecific straightening of the normal cervical curve. Grade 1 degenerative retrolisthesis at C5-C6. C5 is positioned 2.49 posterior to C6. COMPRESSION FRACTURES: No fracture or vertebral body collapse. No bone destruction. No asymmetric widening of the facets. PREVERTEBRAL SOFT TISSUES: Normal. CRANIOCERVICAL JUNCTION: There is a normal relationship of the occipital condyles, lateral masses of C1, and articular surfaces of C2. The base of the dens and body of C2 are intact. Is narrowing of the predental space with spurring arising from the anterior arch of C1 and the tip of the dens. There is calcification at the insertion of the longus colli tendon. POSTERIOR FOSSA: The cerebellar tonsils are above the foramen magnum. Disc levels: C2-C3: Disc space narrowing. Anterior osteophyte formation. No disc herniation. Central canal patent. Neural foramina patent. C3-C4: Disc space narrowing posteriorly. Disc bulging and endplate osteophyte formation. Left-sided facet degeneration with uncovertebral joint degeneration. Central canal patent. Mild left foraminal stenosis. C4-C5: Disc space narrowing. Vertebral endplate degeneration with endplate osteophyte formation. Broad-based central disc osteophyte complex. Facet degeneration. Central canal is patent. Neural foramina are patent. C5-C6: Disc space narrowing. Grade 1 degenerative spondylolisthesis. Central disc osteophyte complex. Mild central canal stenosis. Facet degeneration bilaterally. Neural foramina are patent. C6-C7: No disc herniation. Facet degeneration on the left. Neural foramina patent. Central canal patent. C7-T1: Disc space narrowing. Anterior osteophyte formation. Facet degeneration. Central canal patent. Neural foramina patent. UPPER THORACIC SPINE: At T1-T2, central canal and neural foramina are patent. OTHER: No change in the appearance of the thyroid. CT/CT cervical spine wo con IMPRESSION: 1. No acute intracranial abnormality. No hemorrhage or mass effect. 2. No change in the punctate focus of dystrophic calcification in the subcortical white matter of the left frontal lobe, unchanged from prior studies. 3. No acute cervical fracture. Cervical spondylosis. Please see the detailed discussion of the individual levels in the body of this report. Electronically authenticated by: JESSICA BAKER Date: 06/17/2024 23:04 Dictated By: Jessica Baker M.D. Signed By: 06/17/242306 DD/ 03 TD/TT: Health Information Administrator: The [address] [address] [address] Scan Report Signed Patient: SYLVIA HERRERA MR#: [id number] : 1945 Acct:[id number] Age/Sex: 78 / F ADM Date: 06/17/24 Loc: ER Attending Dr: Ordering Physician: Adeline Hutchinson Date of Service: 06/17/24 Procedure(s): CT cer vical spine wo con Accession Number(s): [id number] cc: Tao Davis M.D. [place] [id number] Patient Name: SYLVIA HERRERA MRN: [facility]:[id number] date: 1945 Sex: F Assigned Patient Location: ER Current Patient Loca tion: ER Accession/Order Numb er: [id number] Exam Date: 06/17/2024 21:48 Report Date: 06/17/2024 23:04 At the request of: ADELINE HUTCHINSON Procedure: CT cervic al spine wo con INDICATION: 78 years old; Female. Closed head trauma. TECHNIQUE: CT Head (ax/cor/sag reformats). Ionizing radiation dose reduced via iterative reconstruction/FBP blend and body size kV/mA adjustment. Comparison: Head CT dated 12/31/2023. FINDINGS: POSTOPERATIVE CHANGE S: None. BRAIN PARENCHYMA: Th ere is a punctate focus of hyperdensity seen in the white matter of the left frontal lobe, image 21/series 5. This is unchanged as compared to the prio r examination dated 12/31/2023, image 20/series 5. No intraparenchymal or extra-axial hemorrhage. No mass effect. No midline shift or herniation. There is patchy and confluent low-density in the white matter without mass effect. VENTRICLES/EXTRA-AXI AL SPACES: Normal for patient's age. SINUSES/MASTOIDS: Th e visualized sinuses are clear. Hypoplastic right frontal sinuses. Maxillary sinuses aren't completely included. Mastoids and middle ears are clear. MSK: No displaced or depressed calvarial fracture. OTHER: No hyperdense intraluminal thrombus is present. TECHNIQUE: CT imagin g of the cervical spine was performed. IV contrast: None. Dose reduction techn iques were achieved by using automated exposure control and/or adjustment of mA and/or kV according to patient size and/or use of iterative reconstruc tion technique. COMPARISON: Cervical CT dated 12/30/2023. FINDINGS: POSTOPERATIVE CHANGE S: None. ALIGNMENT: Nonspecif ic straightening of the normal cervical curve. Grade 1 degenerative retrolisthesis at C5-C6. C5 is positioned 2.49 posterior to C6. COMPRESSION FRACTURE S: No fracture or vertebral body collapse. No bone destruction. No asymmetric widening of the facets. PREVERTEBRAL SOFT TISSUES: Normal. CRANIOCERVICAL JUNCT ION: There is a normal relationship of the occipital condyles, lateral ma sses of C1, and articular surfaces of C2. The base of the dens and body of C2 are intact. Is narrowing of the predental space with spurring arising fro m the anterior arch of C1 and the tip of the dens. There is calcification at the insertion of the longus colli tendon. POSTERIOR FOSSA: The cerebellar tonsils are above the foramen magnum. Disc levels: C2-C3: Disc space narrowing. Anterior osteophyte formation. No disc herniation. Central canal patent . Neural foramina patent. C3-C4: Disc space narrowing posteriorly. Disc bulging and endplate osteophyte formation. Left-side d facet degeneration with uncovertebral joint degeneration. Central canal patent . Mild left foraminal stenosis. C4-C5: Disc space narrowing. Vertebral endplate degeneration with endplate osteophyte formation . Broad-based central disc osteophyte complex. Facet degeneration. Centra l canal is patent. Neural foramina are patent. C5-C6: Disc space narrowing. Grade 1 degenerative spondylolisthesis. Central disc osteophyte comp priscila. Mild central canal stenosis. Facet degeneration bilaterally. Neural foramina are patent. C6-C7: No disc herniation. Facet degeneration on the left. Neural foramina patent. Central shwetha l patent. C7-T1: Disc space narrowing. Anterior osteophyte formation. Facet degeneration. Central canal patent . Neural foramina patent. UPPER THORACIC SPINE : At T1-T2, central canal and neural foramina are patent. OTHER: No change in the appearance of the thyroid. C T/CT cervical spine wo con IMPRESSION: 1. No acute intracra nial abnormality. No hemorrhage or mass effect. 2. No change in the punctate focus of dystrophic calcification in the subcortical white ma tter of the left frontal lobe, unchanged from prior studies. 3. No acute cervical fracture. Cervical spondylosis. Please see the detailed discussion of the individual levels in the body of this report. Electronically authenticated by: JESSICA BAKER Date: 06/17/2024 23:04 Dictated By: Jessica Baker M.D. Signed By: 06/17/242306 DD/ 03 TD/TT: Health Information Administrator: XR chest 1V Reviewed date:08/03/2024 11:58:29 AM Interpretation: Performing Lab: Notes/Report: Source Facility: [place] [address] XRay Report Signed Patient: SYLVIA HERRERA MR#: [id number] : 1945 Acct:[id number] Age/Sex: 78 / F ADM Date: 08/02/24 Loc: ER Attending Dr: Ordering Physician: Cristhian Aden Date of Service: 08/02/24 Procedure(s): XR chest 1V Accession Number(s): [id number] cc: Tao Davis M.D.; Cristhian Aden [place] [address] Patient Name: SYLVIA HERRERA MRN: [id number] date: 1945 Sex: F Assigned Patient Location: ER Current Patient Location: ER Accession/Order Number: [id number] Exam Date: 08/02/2024 16:40 Report Date: 08/02/2024 17:19 At the request of: CRISTHIAN ADEN Procedure: XR chest 1V XR chest 1V CLINICAL: Weakness COMPARISON: 06/17/2024 TECHNIQUE: Single AP view of the chest. FINDINGS: Heart size is within normal limits for technique. No regional airspace consolidation, effusion or evidence of pneumothorax. Pleural-based densities at the left lung base are suggestive of atelectasis or scarring, similar to prior. Osseous structures appear intact. 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 XR/XR chest 1V IMPRESSION: No acute cardiac or pulmonary findings. Electronically authenticated by: JAZLYN PETER Date: 08/02/2024 17:19 Dictated By: Jazlyn Lane M.D. Signed By: 08/02/24 172 DD/ 171 TD/TT: Health Information Administrator: [place] [address] XRay Report Signed Patient: SYLVIA HERRERA MR#: [id number] : 1945 Acct:[id number] Age/Sex: 78 / F ADM Date: 08/02/24 Loc: ER Attending Dr: Ordering Physician: Cristhian Aden Date of Service: 08/02/24 Procedure(s): XR chest 1V Accession Number(s): [id number] cc: Tao Davis M.D. ; Cristhian Aden [place] [id number] Patient Name: SYLVIA HERRERA MRN: [id number] date: 1945 Sex: F Assigned Patient Location: ER Current Patient Loca tion: ER Accession/Order Numb er: [id number] Exam Date: 08/02/2024 16:40 Report Date: 08/02/2024 17:19 At the request of: CRISTHIAN ADEN Procedure: XR chest 1V XR chest 1V CLINICAL: Weakness COMPARISON: 06/17/2024 TECHNIQUE: Single AP view of the chest. FINDINGS: Heart size is within normal limits for technique. No regional airspace consolidation, effus ion or evidence of pneumothorax. Pleural-based densities at the left lung base a re suggestive of atelectasis or scarring, similar to prior. Osseous structures a ppear intact. 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 X R/XR chest 1V IMPRESSION: No acute cardiac or pulmonary findings. Electronically authenticated by: JAZLYN PETER Date: 08/02/2024 17:19 Dictated By: Juan Lane M.D. Signed By: 08/02/24 172 DD/ 1719 TD/TT: Health Information Administrator: CT head/brain wo con Reviewed date:06/18/2024 08:38:12 PM Interpretation: Performing Lab: Notes/Report: Source Facility: [place] [address] CT Scan Report Signed Patient: SYLVIA HERRERA MR#: [id number] : 1945 Acct:[id number] Age/Sex: 78 / F ADM Date: 06/17/24 Loc: ER Attending Dr: Ordering Physician: Adeline Hutchinson Date of Service: 06/17/24 Procedure(s): CT head/brain wo con Accession Number(s): [id number] cc: Tao Davis M.D. [place] [address] Patient Name: SYLVIA HERRERA MRN: [id number] date: 1945 Sex: F Assigned Patient Location: ER Current Patient Location: ER Accession/Order Number: [id number] Exam Date: 06/17/2024 21:48 Report Date: 06/17/2024 23:04 At the request of: ADELINE HUTCHINSON Procedure: CT head/brain wo con INDICATION: 78 years old; Female. Closed head trauma. TECHNIQUE: CT Head (ax/cor/sag reformats). Ionizing radiation dose reduced via iterative reconstruction/FBP blend and body size kV/mA adjustment. Comparison: Head CT dated 12/31/2023. FINDINGS: POSTOPERATIVE CHANGES: None. BRAIN PARENCHYMA: There is a punctate focus of hyperdensity seen in the white matter of the left frontal lobe, image 21/series 5. This is unchanged as compared to the prior examination dated 12/31/2023, image 20/series 5. No intraparenchymal or extra-axial hemorrhage. No mass effect. No midline shift or herniation. There is patchy and confluent low-density in the white matter without mass effect. VENTRICLES/EXTRA-AXIAL SPACES: Normal for patient's age. SINUSES/MASTOIDS: The visualized sinuses are clear. Hypoplastic right frontal sinuses. Maxillary sinuses aren't completely included. Mastoids and middle ears are clear. MSK: No displaced or depressed calvarial fracture. OTHER: No hyperdense intraluminal thrombus is present. TECHNIQUE: CT imaging of the cervical spine was performed. IV contrast: None. Dose reduction techniques were achieved by using automated exposure control and/or adjustment of mA and/or kV according to patient size and/or use of iterative reconstruction technique. COMPARISON: Cervical CT dated 12/30/2023. FINDINGS: POSTOPERATIVE CHANGES: None. ALIGNMENT: Nonspecific straightening of the normal cervical curve. Grade 1 degenerative retrolisthesis at C5-C6. C5 is positioned 2.49 posterior to C6. COMPRESSION FRACTURES: No fracture or vertebral body collapse. No bone destruction. No asymmetric widening of the facets. PREVERTEBRAL SOFT TISSUES: Normal. CRANIOCERVICAL JUNCTION: There is a normal relationship of the occipital condyles, lateral masses of C1, and articular surfaces of C2. The base of the dens and body of C2 are intact. Is narrowing of the predental space with spurring arising from the anterior arch of C1 and the tip of the dens. There is calcification at the insertion of the longus colli tendon. POSTERIOR FOSSA: The cerebellar tonsils are above the foramen magnum. Disc levels: C2-C3: Disc space narrowing. Anterior osteophyte formation. No disc herniation. Central canal patent. Neural foramina patent. C3-C4: Disc space narrowing posteriorly. Disc bulging and endplate osteophyte formation. Left-sided facet degeneration with uncovertebral joint degeneration. Central canal patent. Mild left foraminal stenosis. C4-C5: Disc space narrowing. Vertebral endplate degeneration with endplate osteophyte formation. Broad-based central disc osteophyte complex. Facet degeneration. Central canal is patent. Neural foramina are patent. C5-C6: Disc space narrowing. Grade 1 degenerative spondylolisthesis. Central disc osteophyte complex. Mild central canal stenosis. Facet degeneration bilaterally. Neural foramina are patent. C6-C7: No disc herniation. Facet degeneration on the left. Neural foramina patent. Central canal patent. C7-T1: Disc space narrowing. Anterior osteophyte formation. Facet degeneration. Central canal patent. Neural foramina patent. UPPER THORACIC SPINE: At T1-T2, central canal and neural foramina are patent. OTHER: No change in the appearance of the thyroid. CT/CT head/brain wo con IMPRESSION: 1. No acute intracranial abnormality. No hemorrhage or mass effect. 2. No change in the punctate focus of dystrophic calcification in the subcortical white matter of the left frontal lobe, unchanged from prior studies. 3. No acute cervical fracture. Cervical spondylosis. Please see the detailed discussion of the individual levels in the body of this report. Electronically authenticated by: JESSICA BAKER Date: 06/17/2024 23:04 Dictated By: Jessica Baker M.D. Signed By: 06/17/242306 DD/ 03 TD/TT: Health Information Administrator: [place] [address] CT Scan Report Signed Patient: SYLVIA HERRERA MR#: [id number] : 1945 Acct:[id number] Age/Sex: 78 / F ADM Date: 06/17/24 Loc: ER Attending Dr: Ordering Physician: Adeline Hutchinson Date of Service: 06/17/24 Procedure(s): CT head/brain wo con Accession Number(s): [id number] cc: Tao Davis M.D. The [place] [address] Patient Name: SYLVIA HERRERA MRN: [facility]:[id number] date: 1945 Sex: F Assigned Patient Location: ER Current Patient Loca tion: ER Accession/Order Numb er: [id number] Exam Date: 06/17/2024 21:48 Report Date: 06/17/2024 23:04 At the request of: ADELINE HUTCHINSON Procedure: CT head/b rain wo con INDICATION: 78 years old; Female. Closed head trauma. TECHNIQUE: CT Head (ax/cor/sag reformats). Ionizing radiation dose reduced via iterative reconstruction/FBP blend and body size kV/mA adjustment. Comparison: Head CT dated 12/31/2023. FINDINGS: POSTOPERATIVE CHANGE S: None. BRAIN PARENCHYMA: Th ere is a punctate focus of hyperdensity seen in the white matter of the left frontal lobe, image 21/series 5. This is unchanged as compared to the prio r examination dated 12/31/2023, image 20/series 5. No intraparenchymal or extra-axial hemorrhage. No mass effect. No midline shift or herniation. There is patchy and confluent low-density in the white matter without mass effect. VENTRICLES/EXTRA-AXI AL SPACES: Normal for patient's age. SINUSES/MASTOIDS: Th e visualized sinuses are clear. Hypoplastic right frontal sinuses. Maxillary sinuses aren't completely included. Mastoids and middle ears are clear. MSK: No displaced or depressed calvarial fracture. OTHER: No hyperdense intraluminal thrombus is present. TECHNIQUE: CT imagin g of the cervical spine was performed. IV contrast: None. Dose reduction techn iques were achieved by using automated exposure control and/or adjustment of mA and/or kV according to patient size and/or use of iterative reconstruc tion technique. COMPARISON: Cervical CT dated 12/30/2023. FINDINGS: POSTOPERATIVE CHANGE S: None. ALIGNMENT: Nonspecif ic straightening of the normal cervical curve. Grade 1 degenerative retrolisthesis at C5-C6. C5 is positioned 2.49 posterior to C6. COMPRESSION FRACTURE S: No fracture or vertebral body collapse. No bone destruction. No asymmetric widening of the facets. PREVERTEBRAL SOFT TISSUES: Normal. CRANIOCERVICAL JUNCT ION: There is a normal relationship of the occipital condyles, lateral ma sses of C1, and articular surfaces of C2. The base of the dens and body of C2 are intact. Is narrowing of the predental space with spurring arising fro m the anterior arch of C1 and the tip of the dens. There is calcification at the insertion of the longus colli tendon. POSTERIOR FOSSA: The cerebellar tonsils are above the foramen magnum. Disc levels: C2-C3: Disc space narrowing. Anterior osteophyte formation. No disc herniation. Central canal patent . Neural foramina patent. C3-C4: Disc space narrowing posteriorly. Disc bulging and endplate osteophyte formation. Left-side d facet degeneration with uncovertebral joint degeneration. Central canal patent . Mild left foraminal stenosis. C4-C5: Disc space narrowing. Vertebral endplate degeneration with endplate osteophyte formation . Broad-based central disc osteophyte complex. Facet degeneration. Centra l canal is patent. Neural foramina are patent. C5-C6: Disc space narrowing. Grade 1 degenerative spondylolisthesis. Central disc osteophyte comp priscila. Mild central canal stenosis. Facet degeneration bilaterally. Neural foramina are patent. C6-C7: No disc herniation. Facet degeneration on the left. Neural foramina patent. Central shwetha l patent. C7-T1: Disc space narrowing. Anterior osteophyte formation. Facet degeneration. Central canal patent . Neural foramina patent. UPPER THORACIC SPINE : At T1-T2, central canal and neural foramina are patent. OTHER: No change in the appearance of the thyroid. C T/CT head/brain wo con IMPRESSION: 1. No acute intracra nial abnormality. No hemorrhage or mass effect. 2. No change in the punctate focus of dystrophic calcification in the subcortical white ma tter of the left frontal lobe, unchanged from prior studies. 3. No acute cervical fracture. Cervical spondylosis. Please see the detailed discussion of the individual levels in the body of this report. Electronically authenticated by: JESSICA BAKER Date: 06/17/2024 23:04 Dictated By: Jessica Baker M.D. Signed By: 06/17/242306 DD/ 03 TD/TT: Health Information Administrator: Troponin I High Sensitivity Reviewed date:06/18/2024 08:38:12 PM Interpretation: Performing Lab: Notes/Report: [facility] , Troponin I High Sensitivity 6.6 4.0-51.3 pg/mL CUT-OFF POINTS HAVE BEEN ESTABLISHED BASED ON THE FOURTH UNIVERSAL DEFINITION OF MYOCARDIAL INFARCTION. THE UPPER REFERENCE LIMIT (URL) OF TROPONIN, DEFINED THE 99TH PERCENTILE OF cTnI DISTRIBUTION IN A REFERENCE POPULATION, HAS BEEN CONFIRMED THE DECISION THRESHOLD FOR PR DIAGNOSIS. 99TH PERCENTILE = 51.4 PG/ML NOTE: HIGH-SENSITIVITY TROPONIN ASSAY IS NOT INTENDED TO BE USED IN ISOLATION BUT SHOULD BE INTERPRETED IN CONJUNCTION WITH OTHER DIAGNOSTIC AND CLINICAL INFORMATION. Performing Lab: see note ML - [facility] LB PROF CHEM 8 (BAS METB) Reviewed date:06/18/2024 08:38:12 PM Interpretation: Performing Lab: Notes/Report: [facility] , Sodium 136 136-145 mmol/L Potassium 4.0 3.5-5.1 mmol/L Chloride 100 98-107 mmol/L Carbon Dioxide 24.9 21.0-32.0 mmol/L Anion Gap 15.1 Glucose 137 74-106 mg/dL Blood Urea Nitrogen 36.0 7.0-18.0 mg/dL Creatinine 1.84 0.55-1.02 mg/dL Estimated GFR ( Kasandra 32 >=60 Estimated GFR (Non- Ila 26 >=60 BUN Creatinine Ratio 19.6 Calcium 8.6 8.5-10.1 mg/dL Performing Lab: see note ML - [facility] LB CBC AUTO DIFF Reviewed date:06/18/2024 08:38:12 PM Interpretation: Performing Lab: Notes/Report: [facility] , White Blood Count 7.4 4.0-11.0 10 3/uL Red Blood Count 4.32 4.20-5.40 10 6/uL Hemoglobin 12.4 12.0-16.0 g/dL Hematocrit 38.8 36.0-48.0 % Mean Corpuscular Volume 89.8 81.0-99.0 fL Mean Corpuscular Hemoglobin 28.7 26.7-34.0 pg Mean Corpuscular HGB Conc 32.0 29.9-35.2 g/dL Red Cell Distribution Width 12.6 11.0-15.0 % Platelet Count 198 150-450 10 3/uL Mean Platelet Volume 10.6 9.5-13.5 fL Neutrophils Percent Auto 77.2 43.0-75.0 % Lymphocytes Percent Auto 13.0 20.5-60.0 % Monocytes Percent Auto 8.6 1.7-12.0 % Eosinophils Percent Auto 0.8 0.9-7.0 % Basophils Percent Auto 0.1 0.2-2.0 % Immature Granulocytes Pct Auto 0.3 0.0-0.5 % Neutrophils Absolute Auto 5.7 1.4-6.5 10 3/uL Lymphocytes Absolute Auto 1.0 1.2-3.8 10 3/uL Monocytes Absolute Auto 0.6 0.3-0.8 10 3/uL Eosinophils Absolute Auto 0.1 0.0-0.7 10 3/uL Basophils Absolute Auto 0.0 0.0-0.1 10 3/uL Immature Granulocytes Abs Auto 0.02 0.00-0.03 10 3/uL Performing Lab: see note - [facility] LB IRON Reviewed date:12/18/2024 01:01:24 PM Interpretation: Performing Lab: Notes/Report: [facility] , Iron 76.0 50.0-170.0 ug/dL Performing Lab: see note ML - [facility] LB CBC AUTO DIFF Reviewed date:12/18/2024 01:01:24 PM Interpretation: Performing Lab: Notes/Report: [facility] , White Blood Count 7.2 4.0-11.0 10 3/uL Red Blood Count 3.71 4.20-5.40 10 6/uL Hemoglobin 11.0 12.0-16.0 g/dL Hematocrit 35.5 36.0-48.0 % Mean Corpuscular Volume 95.7 81.0-99.0 fL Mean Corpuscular Hemoglobin 29.6 26.7-34.0 pg Mean Corpuscular HGB Conc 31.0 29.9-35.2 g/dL Red Cell Distribution Width 14.0 11.0-15.0 % Platelet Count 178 150-450 10 3/uL Mean Platelet Volume 10.4 9.5-13.5 fL Neutrophils Percent Auto 71.9 43.0-75.0 % Lymphocytes Percent Auto 14.5 20.5-60.0 % Monocytes Percent Auto 11.9 1.7-12.0 % Eosinophils Percent Auto 1.1 0.9-7.0 % Basophils Percent Auto 0.3 0.2-2.0 % Immature Granulocytes Pct Auto 0.3 0.0-0.5 % Neutrophils Absolute Auto 5.2 1.4-6.5 10 3/uL Lymphocytes Absolute Auto 1.0 1.2-3.8 10 3/uL Monocytes Absolute Auto 0.9 0.3-0.8 10 3/uL Eosinophils Absolute Auto 0.1 0.0-0.7 10 3/uL Basophils Absolute Auto 0.0 0.0-0.1 10 3/uL Immature Granulocytes Abs Auto 0.02 0.00-0.03 10 3/uL Performing Lab: see note ML - [facility] LB LIPASE Reviewed date:08/14/2024 04:18:18 PM Interpretation: Performing Lab: Notes/Report: [facility] , Lipase 16.0 16.0-77.0 U/L Performing Lab: see note ML - [facility] LB TSH Reviewed date:09/07/2024 02:54:17 PM Interpretation: Performing Lab: Notes/Report: [facility] , Thyroid Stimulating Hormone 3.142 0.358-3.740 uIU/mL Performing Lab: see note ML - [facility] LB MAGNESIUM Reviewed date:09/07/2024 02:54:17 PM Interpretation: Performing Lab: Notes/Report: [facility] , Magnesium 1.3 1.8-2.4 mg/dL Performing Lab: see note ML - [facility] LB MAGNESIUM Reviewed date:07/02/2024 01:57:08 PM Interpretation: Performing Lab: Notes/Report: [facility] , Magnesium 1.2 1.8-2.4 mg/dL Performing Lab: see note - [facility] LB Result 4 Reviewed date:01/11/2025 07:16:14 PM Interpretation: Performing Lab: Notes/Report: [facility] , Result 4 See Below For Report Result 4 DISTRIBUTION OPERATIONS MANAGER Performing Lab: see note LC - [facility] LB Result 3 Reviewed date:01/11/2025 07:16:14 PM Interpretation: Performing Lab: Notes/Report: [facility] , Result 3 See Below For Report Result 3 DISTRIBUTION OPERATIONS MANAGER Performing Lab: see note LC - [facility] LB Result 2 Reviewed date:01/11/2025 07:16:13 PM Interpretation: Performing Lab: Notes/Report: [facility] , Result 2 See Below For Report Result 2 Few gram positive rods. Performing Lab: see note LC - [facility] LB Result 1 Reviewed date:01/11/2025 07:16:13 PM Interpretation: Performing Lab: Notes/Report: [facility] , Result 1 See Below For Report Result 1 Moderate number of gram positive cocci. Performing Lab: see note LC - [facility] LB Epithelial Cells Reviewed date:01/11/2025 07:16:13 PM Interpretation: Performing Lab: Notes/Report: [facility] , Epithelial Cells See Below For Report Epithelial Cells Few Performing Lab: see note LC - [facility] LB White Blood Cells Reviewed date:01/11/2025 07:16:13 PM Interpretation: Performing Lab: Notes/Report: [facility] , White Blood Cells See Below For Report White Blood Cells White Blood Cells Few White Blood Cells Performing Lab: see note LC - [facility] LB Troponin I High Sensitivity Reviewed date:01/05/2025 02:20:10 PM Interpretation: Performing Lab: Notes/Report: [facility] , Troponin I High Sensitivity 11.3 4.0-51.3 pg/mL CUT-OFF POINTS HAVE BEEN ESTABLISHED BASED ON THE FOURTH UNIVERSAL DEFINITION OF MYOCARDIAL INFARCTION. THE UPPER REFERENCE LIMIT (URL) OF TROPONIN, DEFINED THE 99TH PERCENTILE OF cTnI DISTRIBUTION IN A REFERENCE POPULATION, HAS BEEN CONFIRMED THE DECISION THRESHOLD FOR PR DIAGNOSIS. 99TH PERCENTILE = 51.4 PG/ML NOTE: HIGH-SENSITIVITY TROPONIN ASSAY IS NOT INTENDED TO BE USED IN ISOLATION BUT SHOULD BE INTERPRETED IN CONJUNCTION WITH OTHER DIAGNOSTIC AND CLINICAL INFORMATION. Performing Lab: see note ML - [facility] LB Urine Culture, Routine Reviewed date:01/11/2025 07:16:14 PM Interpretation: Performing Lab: Notes/Report: [facility] , Urine Culture, Routine See Below For Report Urine Culture, Routine O:ECMS Isolated Organism: 1.1 Antibiotic Interpretation ROWAN Status Urine Culture, Routine Growth observed. Further testing to rule out possible pathogen(s) Urine Culture, Routine O:ECMS Isolated Organism: 1.1 Antibiotic Interpretation ROWAN Status Urine Culture, Routine is in progress. Urine Culture, Routine O:ECMS Isolated Organism: 1.1 Antibiotic Interpretation ROWAN Status Urine Culture, Routine Urine Culture, Routine O:ECMS Isolated Organism: 1.1 Antibiotic Interpretation ROWAN Status Urine Culture, Routine Growth observed. Further testing to rule out possible pathogen(s) Urine Culture, Routine O:ECMS Isolated Organism: 1.1 Antibiotic Interpretation ROWAN Status Urine Culture, Routine is in progress. Urine Culture, Routine O:ECMS Isolated Organism: 1.1 Antibiotic Interpretation ROWAN Status Urine Culture, Routine Organism: Escheri belinda coli, : Urine Culture, Routine O:ECMS Isolated Organism: 1.1 Antibiotic Interpretation ROWAN Status Urine Culture, Routine *ABNORMAL* Urine Culture, Routine O:ECMS Isolated Organism: 1.1 Antibiotic Interpretation ROWAN Status Urine Culture, Routine Cefazolin with an ROWAN <=16 predicts susceptibility to Urine Culture, Routine O:ECMS Isolated Organism: 1.1 Antibiotic Interpretation ROWAN Status Urine Culture, Routine the oral agents c efaclor, cefdinir, cefpodoxime, Urine Culture, Routine O:ECMS Isolated Organism: 1.1 Antibiotic Interpretation ROWAN Status Urine Culture, Routine cefprozil, cefuro michaela, cephalexin, and loracarbef when Urine Culture, Routine O:ECMS Isolated Organism: 1.1 Antibiotic Interpretation ROWAN Status Urine Culture, Routine used for therapy of uncomplicated urinary tract Urine Culture, Routine O:ECMS Isolated Organism: 1.1 Antibiotic Interpretation ROWAN Status Urine Culture, Routine infections due to E. coli, Klebsiella pneumoniae, and Urine Culture, Routine O:ECMS Isolated Organism: 1.1 Antibiotic Interpretation ROWAN Status Urine Culture, Routine Proteus mirabilis. Urine Culture, Routine O:ECMS Isolated Organism: 1.1 Antibiotic Interpretation ROWAN Status Urine Culture, Routine 10,000-25,000 col lei forming units per mL Urine Culture, Routine O:ECMS Isolated Organism: 1.1 Antibiotic Interpretation ROWAN Status Urine Culture, Routine Urine Culture, Routine O:ECMS Isolated Organism: 1.1 Antibiotic Interpretation ROWAN Status Urine Culture, Routine Not applicable Urine Culture, Routine O:ECMS Isolated Organism: 1.1 Antibiotic Interpretation ROWAN Status Urine Culture, Routine Escherichia coli, Urine Culture, Routine O:ECMS Isolated Organism: 1.1 Antibiotic Interpretation ROWAN Status Urine Culture, Routine See Below For Report Urine Culture, Routine O:ECMS Isolated Organism: 1.1 Antibiotic Interpretation ROWAN Status Urine Culture, [facility]ine [facility], Routine O:ECMS Isolated Organism: 1.1 Antibiotic Interpretation ROWAN Status Urine Culture, Routine [address] [place], [place] [id number] Urine Culture, Routine O:ECMS Isolated Organism: 1.1 Antibiotic Interpretation ROWAN Status Urine Culture, Routine Earring Maker: Ethan Novoa PhD, Phone: [phone] Urine Culture, Routine O:ECMS Isolated Organism: 1.1 Antibiotic Interpretation ROWAN Status Urine Culture, Routine See Below For Report Urine Culture, Routine O:ECMS Isolated Organism: 1.1 Antibiotic Interpretation ROWAN Status Urine Culture, Routine AMOXICILLIN/CLAVU LANIC ACID S F Urine Culture, Routine O:ECMS Isolated Organism: 1.1 Antibiotic Interpretation ROWAN Status Urine Culture, Routine Ampicillin S F Urine Culture, Routine O:ECMS Isolated Organism: 1.1 Antibiotic Interpretation ROWAN Status Urine Culture, Routine Cefazolin S F Urine Culture, Routine O:ECMS Isolated Organism: 1.1 Antibiotic Interpretation ROWAN Status Urine Culture, Routine Cefepime S F Urine Culture, Routine O:ECMS Isolated Organism: 1.1 Antibiotic Interpretation ROWAN Status Urine Culture, Routine Cefoxitin S F Urine Culture, Routine O:ECMS Isolated Organism: 1.1 Antibiotic Interpretation ROWAN Status Urine Culture, Routine Cefpodoxime S F Urine Culture, Routine O:ECMS Isolated Organism: 1.1 Antibiotic Interpretation ROWAN Status Urine Culture, Routine Ceftriaxone S F Urine Culture, Routine O:ECMS Isolated Organism: 1.1 Antibiotic Interpretation ROWAN Status Urine Culture, Routine Ciprofloxacin S F Urine Culture, Routine O:ECMS Isolated Organism: 1.1 Antibiotic Interpretation ROWAN Status Urine Culture, Routine Ertapenem S F Urine Culture, Routine O:ECMS Isolated Organism: 1.1 Antibiotic Interpretation ROWAN Status Urine Culture, Routine Gentamicin S F Urine Culture, Routine O:ECMS Isolated Organism: 1.1 Antibiotic Interpretation ROWAN Status Urine Culture, Routine Levofloxacin S F Urine Culture, Routine O:ECMS Isolated Organism: 1.1 Antibiotic Interpretation ROWAN Status Urine Culture, Routine Meropenem S F Urine Culture, Routine O:ECMS Isolated Organism: 1.1 Antibiotic Interpretation ROWAN Status Urine Culture, Routine Nitrofurantoin S F Urine Culture, Routine O:ECMS Isolated Organism: 1.1 Antibiotic Interpretation ROWAN Status Urine Culture, Routine Tetracycline S F Urine Culture, Routine O:ECMS Isolated Organism: 1.1 Antibiotic Interpretation ROWAN Status Urine Culture, Routine Tobramycin S F Urine Culture, Routine O:ECMS Isolated Organism: 1.1 Antibiotic Interpretation ROWAN Status Urine Culture, Routine Trimethoprim/Sulf amethoxa zole S F Urine Culture, Routine O:ECMS Isolated Organism: 1.1 Antibiotic Interpretation ROWAN Status Urine Culture, Routine Piperacillin/Tazo bactam S F Urine Culture, Routine O:ECMS Isolated Organism: 1.1 Antibiotic Interpretation ROWAN Status Performing Lab: see note LC - [facility] LB SEE REPORT - Emergency Telecommunications Dispatcher Id information not found for OBX-specific reproducer legend BNP Reviewed date:01/06/2025 07:52:24 AM Interpretation: Performing Lab: Notes/Report: [facility] , NT Pro B Type Natriuretic Pept 6324.0 <=1800.0 pg/mL RESULTS CALLED TO Stephanie Funk RN Performing Lab: see note ML - [facility] LB CBC AUTO DIFF Reviewed date:01/06/2025 07:52:24 AM Interpretation: Performing Lab: Notes/Report: [facility] , White Blood Count 10.6 4.0-11.0 10 3/uL Red Blood Count 3.05 4.20-5.40 10 6/uL Hemoglobin 8.8 12.0-16.0 g/dL Hematocrit 27.3 36.0-48.0 % Mean Corpuscular Volume 89.5 81.0-99.0 fL Mean Corpuscular Hemoglobin 28.9 26.7-34.0 pg Mean Corpuscular HGB Conc 32.2 29.9-35.2 g/dL Red Cell Distribution Width 14.8 11.0-15.0 % Platelet Count 187 150-450 10 3/uL Mean Platelet Volume 10.6 9.5-13.5 fL Neutrophils Percent Auto 84.7 43.0-75.0 % Lymphocytes Percent Auto 5.9 20.5-60.0 % Monocytes Percent Auto 7.9 1.7-12.0 % Eosinophils Percent Auto 1.0 0.9-7.0 % Basophils Percent Auto 0.1 0.2-2.0 % Immature Granulocytes Pct Auto 0.4 0.0-0.5 % Neutrophils Absolute Auto 9.0 1.4-6.5 10 3/uL Lymphocytes Absolute Auto 0.6 1.2-3.8 10 3/uL Monocytes Absolute Auto 0.8 0.3-0.8 10 3/uL Eosinophils Absolute Auto 0.1 0.0-0.7 10 3/uL Basophils Absolute Auto 0.0 0.0-0.1 10 3/uL Immature Granulocytes Abs Auto 0.04 0.00-0.03 10 3/uL Performing Lab: see note ML - [facility] LB MAGNESIUM Reviewed date:01/06/2025 07:52:24 AM Interpretation: Performing Lab: Notes/Report: [facility] , Magnesium 2.1 1.8-2.4 mg/dL Performing Lab: see note - [facility] LB BNP Reviewed date:01/05/2025 02:20:10 PM Interpretation: Performing Lab: Notes/Report: [facility] , NT Pro B Type Natriuretic Pept 3679.0 <=1800.0 pg/mL RESULTS CALLED TO anastacio morales rn Performing Lab: see note - [facility] LB PROF 14(COMP METB) Reviewed date:01/06/2025 07:52:24 AM Interpretation: Performing Lab: Notes/Report: [facility] , Sodium 143 136-145 mmol/L Potassium 4.3 3.5-5.1 mmol/L Chloride 116 98-107 mmol/L Carbon Dioxide 10.6 21.0-32.0 mmol/L Anion Gap 20.7 Glucose 133 74-106 mg/dL Blood Urea Nitrogen 100.0 7.0-18.0 mg/dL RESULTS CALLED TO MAR MENDOZA RN @BY Quin Dawson at 0635 Creatinine 4.31 0.55-1.02 mg/dL Estimated GFR ( Kasandra 12 >=60 mL/min/1.73m 2 Estimated GFR (Non- Ila 10 >=60 mL/min/1.73m 2 BUN Creatinine Ratio 23.2 Calcium 6.9 8.5-10.1 mg/dL Bilirubin Total 0.3 0.2-1.0 mg/dL Aspartate Amino Transferase 22 15-37 U/L Alanine Aminotransferase 31 14-59 U/L Alkaline Phosphatase 246 46-116 U/L Total Protein 5.1 6.4-8.2 g/dL Albumin Level 2.6 3.4-5.0 g/dL Globulin 2.5 Albumin Globulin Ratio 1.0 Performing Lab: see note ML - [facility] LB Blood Culture 1 Reviewed date:01/11/2025 07:16:13 PM Interpretation: Performing Lab: Notes/Report: LEFT AC [facility] , Blood Culture 1 See Below For Report Blood Culture 1 NG5D NO GROWTH AT 5 DAYS. Performing Lab: see note ML - [facility] LB Blood Culture 2 Reviewed date:01/11/2025 07:16:13 PM Interpretation: Performing Lab: Notes/Report: RIGHT HAND [facility] , Blood Culture 2 See Below For Report Blood Culture 2 NG5D NO GROWTH AT 5 DAYS. Performing Lab: see note ML - [facility] LB BNP Reviewed date:01/07/2025 07:57:35 AM Interpretation: Performing Lab: Notes/Report: [facility] , NT Pro B Type Natriuretic Pept 82634.0 <=1800.0 pg/mL RESULTS CALLED TO ANN-MARIE PERKINS RN @BY Quin Dawson at 0637 Performing Lab: see note ML - [facility] LB Troponin I High Sensitivity Reviewed date:01/07/2025 07:57:35 AM Interpretation: Performing Lab: Notes/Report: [facility] , Troponin I High Sensitivity 6.7 4.0-51.3 pg/mL CUT-OFF POINTS HAVE BEEN ESTABLISHED BASED ON THE FOURTH UNIVERSAL DEFINITION OF MYOCARDIAL INFARCTION. THE UPPER REFERENCE LIMIT (URL) OF TROPONIN, DEFINED THE 99TH PERCENTILE OF cTnI DISTRIBUTION IN A REFERENCE POPULATION, HAS BEEN CONFIRMED THE DECISION THRESHOLD FOR PR DIAGNOSIS. 99TH PERCENTILE = 51.4 PG/ML NOTE: HIGH-SENSITIVITY TROPONIN ASSAY IS NOT INTENDED TO BE USED IN ISOLATION BUT SHOULD BE INTERPRETED IN CONJUNCTION WITH OTHER DIAGNOSTIC AND CLINICAL INFORMATION. Performing Lab: see note ML - [facility] LB E coli Shiga Toxin EIA Reviewed date:01/10/2025 12:21:19 PM Interpretation: Performing Lab: Notes/Report: [facility] , E coli Shiga Toxin EIA See Below For Report E coli Shiga Toxin EIA E coli Shiga Toxin EIA Negative E coli Shiga Toxin EIA E coli Shiga Toxin EIA [facility] E coli Shiga Toxin EIA E coli Shiga Toxin EIA [address] [place] [id number] E coli Shiga Toxin EIA E coli Shiga Toxin EIA Earring Maker: Ethan Novoa PhD, Phone: [phone] E coli Shiga Toxin EIA Performing Lab: see note - [facility] LB SEE REPORT - Emergency Telecommunications Dispatcher Id information not found for OBX-specific reproducer legend CA echo limited Reviewed date:01/07/2025 12:52:57 PM Interpretation: Performing Lab: Notes/Report: Source Facility: [facility] [place] [address] [place] [address] Cardiology Report Signed Patient: SYLVIA HERRERA MR#: [id number] : 1945 Acct:[id number] Age/Sex: 79 / F ADM Date: 01/04/25 Loc: MS 204-[address]: Tao Davis M.D. Ordering Physician: Tao Davis M.D. Date of Service: 01/06/25 Procedure(s): CA echo limited Accession Number(s): [id number] cc: Tao Davis M.D. Patient Name: SYLVIA HERRERA MR#: [id number] : 1945 Exam Date: 01/06/2025 Ordering Doctor: DR Tao Davis . ECHOCARDIOGRAM REPORT PROCEDURE: CA ECHO LIMITED INDICATIONS: elevated BNP, Heart transplant recipient, diabetes COMPARISON: None. DESCRIPTION: Limited ECHOCARDIOGRAM Real-time transthoracic echocardiography with 2D and M-mode performed. QUALITY: Technical quality was good. Limited echocardiogram per physician order. LEFT VENTRICLE: Normal chamber size. Normal left ventricular wall thickness. LV EF: Global left ventricular systolic function is hyperdynamic; visually estimated ejection fraction is 65-70%. No wall motion abnormalities LEFT ATRIUM: Enlarged atrium consistent with heart transplant. RIGHT ATRIUM: Enlarged atrium consistent with heart transplant. RIGHT VENTRICLE: Normal chamber size. Normal systolic function. TRICUSPID VALVE: Normal mobility and thickness. MITRAL VALVE: Normal mobility and thickness. There is no mitral annular calcification. AORTIC VALVE: Normal trileaflet appearance. No visible sclerosis. Normal leaflet mobility. AORTIC ROOT: Normal diameter and appearance. PULMONIC VALVE: Not well visualized. PERICARDIUM: No evidence of pericardial effusion. IVC: Collapses with inspirations. CONCLUSION: 1. Global left ventricular systolic function is hyperdynamic; visually estimated ejection fraction is 65-70% 2. Normal right ventricular size and systolic function 3. Enlarged atria consistent with history of cardiac transplantation A limited echocardiogram was performed Adult Echocardiography Procedure Report Left Ventricle LVEDD (3.7 - 5.6 cm): 3.99 cm LVESD (2.2 - 4.0 cm): 2.25 cm LVIVS thickness (0.6 - 1.2 cm): 1.03 cm LVPW thickness (0.5 - 1.0 cm): 1.05 cm LVOT Diameter 2.25 cm Left Atrium LA Volume Index (2D A2C): 51.99 ml/m2 Left Atrium Systolic Dimension: 3.52 cm Mitral Valve Right Ventricle Aorta AO Root Diam: 3.17 cm Aortic Valve Tricuspid Valve Pulmonic Valve Right Atrium Right Atrium Systolic Pressure: 25.95 ml, 25.95 ml Dictated by: Michael Nolan M.D. on 01/07/2025 at 10:10 Approved by: Michael Nolan M.D. on 01/07/2025 at 10:12 Dictated By: Michael Nolan M.D. Signed By: 01/07/25 1014 DD/ 1013 TD/TT: Health Information Administrator: [place] [address] Cardiology Report Signed Patient: SYLVIA HERRERA MR#: [id number] : 1945 Acct:[id number] Age/Sex: 79 / F ADM Date: 01/04/25 Loc: MS 204-[address]: Ameena Davis M.D. Ordering Physician: Tao Davis M.D. Date of Service: 01/06/25 Procedure(s): CA ech o limited Accession Number(s): [id number] cc: Tao Davis M.D. Patient Name: SYLVIA HERRERA MR#: [id number] : 1945 Exam Date: 01/06/2025 Ordering Doctor: DR Tao Davis . ECHOCARDIOGRAM REPORT PROCEDURE: CA ECHO LIMITED INDICATIONS: elevate d BNP, Heart transplant recipient, diabetes COMPARISON: None. DESCRIPTION: Limited ECHOCARDIOGRAM Real-time transthoracic echocardiography wit h 2D and M-mode performed. QUALITY: Technical quality was good. Limited echocardiogram per physician order. LEFT VENTRICLE: Norm al chamber size. Normal left ventricular wall thickness. LV EF: Global left ventricular systolic function is hyperdynamic; visually estimated ejection fraction is 65-70%. No wall motion abnormalities LEFT ATRIUM: Enlarge d atrium consistent with heart transplant. RIGHT ATRIUM: Enlarg ed atrium consistent with heart transplant. RIGHT VENTRICLE: Nor mal chamber size. Normal systolic function. TRICUSPID VALVE: Nor mal mobility and thickness. MITRAL VALVE: Normal mobility and thickness. There is no mitral annular calcification. AORTIC VALVE: Normal trileaflet appearance. No visible sclerosis. Normal leaflet mobility. AORTIC ROOT: Normal diameter and appearance. PULMONIC VALVE: Not well visualized. PERICARDIUM: No evid ence of pericardial effusion. IVC: Collapses with inspirations. CONCLUSION: 1. Global left ventricular systolic function is hyperdynamic; visually estimated ejection fraction is 65-70% 2. Normal right ventricular size and systolic function 3. Enlarged atria consistent with history of cardiac transplantation A limited echocardio gram was performed Adult Echocardiograp hy Procedure Report Left Ventricle LVEDD (3.7 - 5.6 cm) : 3.99 cm LVESD (2.2 - 4.0 cm) : 2.25 cm LVIVS thickness (0.6 - 1.2 cm): 1.03 cm LVPW thickness (0.5 - 1.0 cm): 1.05 cm LVOT Diameter 2.25 cm Left Atrium LA Volume Index (2D A2C): 51.99 ml/m2 Left Atrium Systolic Dimension: 3.52 cm Mitral Valve Right Ventricle Aorta AO Root Diam: 3.17 cm Aortic Valve Tricuspid Valve Pulmonic Valve Right Atrium Right Atrium Systoli c Pressure: 25.95 ml, 25.95 ml Dictated by: Michael Nolan M.D. on 01/07/2025 at 10:10 Approved by: Michael Nolan M.D. on 01/07/2025 at 10:12 Dictated By: Michael Nolan M.D. Signed By: 01/07/25 1014 DD/ 1013 TD/TT: Health Information Administrator: XR chest 2V Reviewed date:01/07/2025 12:52:57 PM Interpretation: Performing Lab: Notes/Report: Source Facility: [place] [address] XRay Report Signed Patient: SYLVIA HERRERA MR#: [id number] : 1945 Acct:[id number] Age/Sex: 79 / F ADM Date: 01/04/25 Loc: MS 204-[address]: Tao Davis M.D. Ordering Physician: Tao Davis M.D. Date of Service: 01/07/25 Procedure(s): XR chest 2V Accession Number(s): [id number] cc: Tao Davis M.D. [place] [address] Patient Name: SYLVIA HERRERA MRN: [id number] date: 1945 Sex: F Assigned Patient Location: MS Current Patient Location: MS Accession/Order Number: [id number] Exam Date: 01/07/2025 08:50 Report Date: 01/07/2025 09:23 At the request of: TAO DAVIS Procedure: XR chest 2V EXAMINATION: XR chest 2V HISTORY: follow up pneumonia COMPARISON: 01/04/2025 TECHNIQUE: PA and lateral FINDINGS: LUNGS: Moderate bibasilar infiltrates right greater than left. VASCULATURE: No increased pulmonary vasculature. PLEURA: Small bilateral pleural effusions right greater than left likely extending into the right major fissure CARDIAC: No cardiomegaly or cardiac silhouette abnormality. MEDIASTINUM: No visible mass or adenopathy. Median sternotomy wires BONES: Mild degenerative disc disease and spondylosis without visible acute abnormalities. OTHER: Negative. XR/XR chest 2V IMPRESSION: Increase in now bibasilar infiltrates and small pleural effusions Electronically authenticated by: JAZLYN STRICKLAND Date: 01/07/2025 09:23 Dictated By: Jazlyn Strickland M.D. Signed By: 01/07/25925 DD/ 2 TD/TT: Health Information Administrator: [place] [address] XRay Report Signed Patient: SYLVIA HERRERA MR#: [id number] : 1945 Acct:[id number] Age/Sex: 79 / F ADM Date: 01/04/25 Loc: MS 204-[address]: Ameena Davis M.D. Ordering Physician: Tao Davis M.D. Date of Service: 01/07/25 Procedure(s): XR chest 2V Accession Number(s): [id number] cc: Tao Davis M.D. [facility] [place] [address] Patient Name: SYLVIA HERRERA MRN: [id number] date: 1945 Sex: F Assigned Patient Location: MS Current Patient Loca tion: MS Accession/Order Numb er: [id number] Exam Date: 01/07/2025 08:50 Report Date: 01/07/2025 09:23 At the request of: TAO DAVIS Procedure: XR chest 2V EXAMINATION: XR chest 2V HISTORY: follow up pneumonia COMPARISON: 01/04/2025 TECHNIQUE: PA and lateral FINDINGS: LUNGS: Moderate biba silar infiltrates right greater than left. VASCULATURE: No incr eased pulmonary vasculature. PLEURA: Small bilate ral pleural effusions right greater than left likely extending into the r ight major fissure CARDIAC: No cardiome rosita or cardiac silhouette abnormality. MEDIASTINUM: No visi ble mass or adenopathy. Median sternotomy wires BONES: Mild degenera tive disc disease and spondylosis without visible acute abnormalities. OTHER: Negative. X R/XR chest 2V IMPRESSION: Increase in now biba silar infiltrates and small pleural effusions Electronically authenticated by: JAZLYN STRICKLAND Date: 01/07/2025 09:23 Dictated By: Marcelino Strickland M.D. Signed By: 01/07/25925 DD/ 2 TD/TT: Health Information Administrator: BNP Reviewed date:01/08/2025 08:53:39 AM Interpretation: Performing Lab: Notes/Report: [facility] , NT Pro B Type Natriuretic Pept 97499.0 <=1800.0 pg/mL RESULTS CALLED TO Alex Funk RN @BY Frandy Smith [place] at 0653 Performing Lab: see note ML - [facility] LB CBC AUTO DIFF Reviewed date:01/08/2025 08:53:39 AM Interpretation: Performing Lab: Notes/Report: [facility] , White Blood Count 11.7 4.0-11.0 10 3/uL Red Blood Count 3.01 4.20-5.40 10 6/uL Hemoglobin 8.8 12.0-16.0 g/dL Hematocrit 27.9 36.0-48.0 % Mean Corpuscular Volume 92.7 81.0-99.0 fL Mean Corpuscular Hemoglobin 29.2 26.7-34.0 pg Mean Corpuscular HGB Conc 31.5 29.9-35.2 g/dL Red Cell Distribution Width 15.0 11.0-15.0 % Platelet Count 170 150-450 10 3/uL Mean Platelet Volume 10.7 9.5-13.5 fL Performing Lab: see note ML - [facility] LB MAGNESIUM Reviewed date:01/08/2025 08:53:39 AM Interpretation: Performing Lab: Notes/Report: [facility] , Magnesium 1.9 1.8-2.4 mg/dL Performing Lab: see note ML - [facility] LB PROF 14(COMP METB) Reviewed date:01/08/2025 08:53:39 AM Interpretation: Performing Lab: Notes/Report: [facility] , Sodium 139 136-145 mmol/L Potassium 5.4 3.5-5.1 mmol/L Chloride 113 98-107 mmol/L Carbon Dioxide 10.9 21.0-32.0 mmol/L Anion Gap 20.5 Glucose 118 74-106 mg/dL Blood Urea Nitrogen 86.0 7.0-18.0 mg/dL RESULTS CALLED TO CONNIE DAVILA RN ON [employer] BY Ann-Marie Rodriguez at 0655 Creatinine 4.61 0.55-1.02 mg/dL Estimated GFR ( Kasandra 11 >=60 mL/min/1.73m 2 Estimated GFR (Non- Ila 9 >=60 mL/min/1.73m 2 BUN Creatinine Ratio 18.7 Calcium 7.6 8.5-10.1 mg/dL Bilirubin Total 0.3 0.2-1.0 mg/dL Aspartate Amino Transferase 22 15-37 U/L Alanine Aminotransferase 33 14-59 U/L Alkaline Phosphatase 189 46-116 U/L Total Protein 4.7 6.4-8.2 g/dL Albumin Level 2.1 3.4-5.0 g/dL Globulin 2.6 Albumin Globulin Ratio 0.8 Performing Lab: see note ML - [facility] LB Manual Differential Reviewed date:01/08/2025 08:53:39 AM Interpretation: Performing Lab: Notes/Report: [facility] , Segmented Neutrophils % Manual 87.0 43.0-75.0 Band Neutrophils % 1.0 0-5 % Lymphocytes Percent Manual 5.0 20.5-60.0 % Monocytes Percent Manual 7.0 1.7-12.0 % Eosinophils Percent Manual 0.0 0.9-7.0 % Basophils Percent Manual 0.0 0.2-2.0 % Segmented Neut Absolute Manual 10.17 1.4-6.5 10 3/uL Band Neutrophils Absolute 0.1 0.0-0.3 10 3/uL Lymphocytes Absolute Manual 0.58 1.20-3.80 10 3/uL Monocytes Absolute Manual 0.81 0.30-0.80 10 3/uL Eosinophils Absolute Manual 0.00 0.00-0.70 10 3/uL Basophils Abs Manual 0.00 0.00-0.10 1 0 3/uL Performing Lab: see note - [facility] LB C. Difficile PCR Reviewed date:01/10/2025 11:23:40 AM Interpretation: Performing Lab: Notes/Report: [facility] , C. Difficile PCR NEGATIVE Performing Lab: see note - [facility] LB CBC AUTO DIFF Reviewed date:03/02/2025 04:42:25 PM Interpretation: Performing Lab: Notes/Report: [facility] , White Blood Count 9.3 4.0-11.0 10 3/uL Red Blood Count 3.06 4.20-5.40 10 6/uL Hemoglobin 9.4 12.0-16.0 g/dL Hematocrit 28.8 36.0-48.0 % Mean Corpuscular Volume 94.1 81.0-99.0 fL Mean Corpuscular Hemoglobin 30.7 26.7-34.0 pg Mean Corpuscular HGB Conc 32.6 29.9-35.2 g/dL Red Cell Distribution Width 13.6 11.0-15.0 % Platelet Count 155 150-450 10 3/uL Mean Platelet Volume 9.9 9.5-13.5 fL Neutrophils Percent Auto 82.0 43.0-75.0 % Lymphocytes Percent Auto 9.3 20.5-60.0 % Monocytes Percent Auto 7.0 1.7-12.0 % Eosinophils Percent Auto 1.2 0.9-7.0 % Basophils Percent Auto 0.1 0.2-2.0 % Immature Granulocytes Pct Auto 0.4 0.0-0.5 % Neutrophils Absolute Auto 7.7 1.4-6.5 10 3/uL Lymphocytes Absolute Auto 0.9 1.2-3.8 10 3/uL Monocytes Absolute Auto 0.7 0.3-0.8 10 3/uL Eosinophils Absolute Auto 0.1 0.0-0.7 10 3/uL Basophils Absolute Auto 0.0 0.0-0.1 10 3/uL Immature Granulocytes Abs Auto 0.04 0.00-0.03 10 3/uL Performing Lab: see note ML - [facility] LB CBC AUTO DIFF Reviewed date:03/03/2025 07:52:00 PM Interpretation: Performing Lab: Notes/Report: [facility] , White Blood Count 8.0 4.0-11.0 10 3/uL Red Blood Count 3.07 4.20-5.40 10 6/uL Hemoglobin 9.3 12.0-16.0 g/dL Hematocrit 29.2 36.0-48.0 % Mean Corpuscular Volume 95.1 81.0-99.0 fL Mean Corpuscular Hemoglobin 30.3 26.7-34.0 pg Mean Corpuscular HGB Conc 31.8 29.9-35.2 g/dL Red Cell Distribution Width 13.5 11.0-15.0 % Platelet Count 141 150-450 10 3/uL Mean Platelet Volume 9.9 9.5-13.5 fL Neutrophils Percent Auto 79.4 43.0-75.0 % Lymphocytes Percent Auto 10.8 20.5-60.0 % Monocytes Percent Auto 7.0 1.7-12.0 % Eosinophils Percent Auto 2.4 0.9-7.0 % Basophils Percent Auto 0.1 0.2-2.0 % Immature Granulocytes Pct Auto 0.3 0.0-0.5 % Neutrophils Absolute Auto 6.4 1.4-6.5 10 3/uL Lymphocytes Absolute Auto 0.9 1.2-3.8 10 3/uL Monocytes Absolute Auto 0.6 0.3-0.8 10 3/uL Eosinophils Absolute Auto 0.2 0.0-0.7 10 3/uL Basophils Absolute Auto 0.0 0.0-0.1 10 3/uL Immature Granulocytes Abs Auto 0.02 0.00-0.03 10 3/uL Performing Lab: see note ML - [facility] LB ECG 12 lead Reviewed date:03/03/2025 07:52:00 PM Interpretation: Performing Lab: Notes/Report: Source Facility: [facility]-[address] [place] [address] [place] [address] Electrocardiograph Report Signed Patient: SYLVIA HERREAR MR#: [id number] : 1945 Acct:[id number] Age/Sex: 79 / F ADM Date: 03/03/25 Loc: ER Attending Dr: Ordering Physician: Chiquita Lester Date of Service: 03/03/25 Procedure(s): ECG 12 lead Accession Number(s): [id number] cc: [facility] Test Date: 2025-03-03 Pat Name: SYLVIA HERRERA Department: Room: - Gender: Female Handling Tech: : 1945 Requested By: [id number] Order Number: [id number] Reading MD: ANISHA DINH M.D. Measurements Intervals [place] Rate: 68 P: 19 NC: 184 QRS: 100 QRSD: 98 T: 60 QT: 428 QTc: 445 Interpretive Statements 1100 Sinus rhythm 2440 Incomplete right bundle branch block 5120 Possible right ventricular hypertrophy 9130 borderline ECG Compared to ECG 01/04/2025 21:29:01 No significant change Electronically Signed On 03-03-2025 17:29:29 EDT by ANISHA DINH M.D. Dictated By: ANISHA DINH Signed By: 03/03/25 1729 DD/ 1017 TD/TT: Health Information Administrator: [place] [address] Electrocardiograph Report Signed Patient: SYLVIA HERRERA MR#: [id number] : 1945 Acct:[id number] Age/Sex: 79 / F ADM Date: 03/03/25 Loc: ER Attending Dr: Ordering Physician: Chiquita Lester Date of Service: 03/03/25 Procedure(s): ECG 12 lead Accession Number(s): [id number] cc: [facility] Test Date: 2025-03-03 Pat Name: SYLVIA SVETLANA Deedee Department: 41 Room: - Gender: Female Handling Tech: : 1945 Requ ested By: 1853 Order Number: [id number] Reading MD: ANISHA DINH M.D. Measurements Intervals [place] Rate: 68 P: 19 NC: 184 QRS: 100 QRSD: 98 T: 60 QT: 428 QTc: 445 Interpretive Statements 1100 Sinus rhythm 2440 Incomplete righ t bundle branch block 5120 Possible right ventricular hypertrophy 9130 borderline ECG Compared to ECG 01/04/2025 21:29:01 No significant change Electronically Kelly d On 03-03-2025 17:29:29 EDT by ANISHA DINH M.D. Dictated By: ANISHA DINH Signed By: 03/03/25 1729 DD/ 1017 TD/TT: Health Information Administrator: Aerobic Culture Reviewed date:01/11/2025 07:16:13 PM Interpretation: Performing Lab: Notes/Report: [facility] , Aerobic Culture See Below For Report Aerobic Culture O:MRSA Isolated Organism: 1.1 Antibiotic Interpretation ROWAN Status Aerobic Culture Growth observed. Fur ther testing to rule out possible pathogen(s) Aerobic Culture O:MRSA Isolated Organism: 1.1 Antibiotic Interpretation ROWAN Status Aerobic Culture is in progress. Aerobic Culture O:MRSA Isolated Organism: 1.1 Antibiotic Interpretation ROWAN Status Aerobic Culture Organism: Methicilli n Resis Staph Aureus : Aerobic Culture O:MRSA Isolated Organism: 1.1 Antibiotic Interpretation ROWAN Status Aerobic Culture *ABNORMAL* Aerobic Culture O:MRSA Isolated Organism: 1.1 Antibiotic Interpretation ROWAN Status Aerobic Culture Methicillin - resistant Aerobic Culture O:MRSA Isolated Organism: 1.1 Antibiotic Interpretation ROWAN Status Aerobic Culture Based on resistance to oxacillin this isolate would be Aerobic Culture O:MRSA Isolated Organism: 1.1 Antibiotic Interpretation ROWAN Status Aerobic Culture resistant to all currently available beta-lactam Aerobic Culture O:MRSA Isolated Organism: 1.1 Antibiotic Interpretation ROWAN Status Aerobic Culture antimicrobial agents , with the exception of the newer Aerobic Culture O:MRSA Isolated Organism: 1.1 Antibiotic Interpretation ROWAN Status Aerobic Culture cephalosporins with anti-MRSA activity, such as Aerobic Culture O:MRSA Isolated Organism: 1.1 Antibiotic Interpretation ROWAN Status Aerobic Culture Ceftaroline Aerobic Culture O:MRSA Isolated Organism: 1.1 Antibiotic Interpretation ROWAN Status Aerobic Culture Light growth Aerobic Culture O:MRSA Isolated Organism: 1.1 Antibiotic Interpretation ROWAN Status Aerobic Culture Methicillin Resis St aph Aureus Aerobic Culture O:MRSA Isolated Organism: 1.1 Antibiotic Interpretation ROWAN Status Aerobic Culture See Below For Report Aerobic Culture O:MRSA Isolated Organism: 1.1 Antibiotic Interpretation ROWAN Status Aerobic Culture Performed at: [facility] [place] Aerobic Culture O:MRSA Isolated Organism: 1.1 Antibiotic Interpretation ROWAN Status Aerobic Culture [address] [place], [place] [id number] Aerobic Culture O:MRSA Isolated Organism: 1.1 Antibiotic Interpretation ROWAN Status Aerobic Culture Earring Maker: Brice Novoa PhD, Phone: [phone] Aerobic Culture O:MRSA Isolated Organism: 1.1 Antibiotic Interpretation ROWAN Status Aerobic Culture See Below For Report Aerobic Culture O:MRSA Isolated Organism: 1.1 Antibiotic Interpretation ROWAN Status Aerobic Culture Ciprofloxacin R F Aerobic Culture O:MRSA Isolated Organism: 1.1 Antibiotic Interpretation ROWAN Status Aerobic Culture Erythromycin R F Aerobic Culture O:MRSA Isolated Organism: 1.1 Antibiotic Interpretation ROWAN Status Aerobic Culture Gentamicin S F Aerobic Culture O:MRSA Isolated Organism: 1.1 Antibiotic Interpretation ROWAN Status Aerobic Culture Levofloxacin R F Aerobic Culture O:MRSA Isolated Organism: 1.1 Antibiotic Interpretation ROWAN Status Aerobic Culture Linezolid S F Aerobic Culture O:MRSA Isolated Organism: 1.1 Antibiotic Interpretation ROWAN Status Aerobic Culture Oxacillin R F Aerobic Culture O:MRSA Isolated Organism: 1.1 Antibiotic Interpretation ROWAN Status Aerobic Culture Penicillin R F Aerobic Culture O:MRSA Isolated Organism: 1.1 Antibiotic Interpretation ROWAN Status Aerobic Culture Rifampin S F Aerobic Culture O:MRSA Isolated Organism: 1.1 Antibiotic Interpretation ROWAN Status Aerobic Culture Tetracycline S F Aerobic Culture O:MRSA Isolated Organism: 1.1 Antibiotic Interpretation ROWAN Status Aerobic Culture Trimethoprim/Sulfame thoxa zole S F Aerobic Culture O:MRSA Isolated Organism: 1.1 Antibiotic Interpretation ROWAN Status Aerobic Culture Vancomycin S F Aerobic Culture O:MRSA Isolated Organism: 1.1 Antibiotic Interpretation ROWAN Status Aerobic Culture Clindamycin R F Aerobic Culture O:MRSA Isolated Organism: 1.1 Antibiotic Interpretation ROWAN Status Performing Lab: see note LC - [facility] LB SEE REPORT - Emergency Telecommunications Dispatcher Id information not found for OBX-specific reproducer legend Reason For Referral Diagnosis 1 Chronic kidney disea se, stage 4 (severe) (N18.4) Referral Organization [facility] Referring Provider First Name Duyen Referring Provider Last Name Val Referring Provider [facility] Referred Provider Apolinar Wharton Referred Provider Specialty Nephrology Referral Priority Routine Diagnosis 1 Vertigo (R42) Referral Organization [facility] Referring Provider First Name Duyen Referring Provider Last Name Val Referring Provider [facility] zhao Referred Provider [facility] Referred Provider Specialty Neurology Referral Priority Routine Reason wt loss, Diagnosis 1 Unintentional weight loss (R63.4) Referral Organization [facility] Referring Provider First Name Duyen Referring Provider Last Name Val Referring [facility] Referred Provider Caryl Chirinos Referred Provider Specialty Gastroentero logy Referral Priority Routine Diagnosis 1 Unintentional weight loss (R63.4) Referral Organization [facility] Referring Provider First Name Duyen Referring Provider Last Name Val Referring [facility] Referred Provider Azam Carrillo Referred Provider Specialty Gastroentero logy Referral Priority Routine Diagnosis 1 Unintentional weight loss (R63.4) Referral Organization [facility] Referring Provider First Name Duyen Referring Provider Last Name Val Referring Provider [facility] Referred Provider González Shanks Referred Provider Specialty Gastroentero logy Referral Priority Routine Diagnosis 1 Heart transplant rec ipient (Z94.1) Diagnosis 2 Bronchitis (J40) Diagnosis 3 Weakness (R53.1) Referral Organization [facility] Referring Provider First Name King Referring Provider Last Name Ryan Referring Provider [facility] Referred Provider [facility] Referred Provider Special[facility] Referral Priority Routine Medications Medication SIG (Take, Route, Frequency, Duration) Notes Start Date End Date Status Doxepin HCl 10 MG 1 capsule at bedtime Orally Once a day for 30 days 02/03/2025 Active Timolol Maleate 0.5 % 1 drop into affect ed Ophthalmic twice daily 02/03/2025 Active Tacrolimus 1 MG 1 capsule Orally BID Active Alendronate Sodium 70 MG 1 tablet 30 min utes before the first food Orally once weekly 02/03/2025 Active Latanoprost 0.005 % 1 drop into affected eye Ophthalmic at bedtime 02/03/2025 Active Acetaminophen 325 MG 1-2 tablet as neede d Orally every 4 hrs 02/03/2025 Active Ergocalciferol 1.25 MG (92426 UT) 1 capsule Orally once weekly 02/03/2025 Active Aspirin 81 81 MG 1 tablet Orally Once a day Active Magnesium Oxide 400 MG 1 tablet Orally TID Active Amitriptyline HCl 10 MG 1 tablet Orally at bedtime 02/03/2025 Active Loperamide HCl 2 MG 1 capsule Orally twi ce daily 02/03/2025 Active Creon 44198-05037 UNIT take 3 capsules O rally three times daily for 30 days Active Blood Pressure Monitor - as directed Active Mycophenolate Mofetil 250 MG 1 capsule O rally Twice a day 02/03/2025 Active clonazePAM 1 MG 1 tablet Orally BID for 7 days As needed 02/03/2025 Active Sodium Bicarbonate 650 MG 1 tablet Orally TID 04/2025 Active Brimonidine Tartrate 0.2 % 1 drop into a ffected eye Ophthalmic three times daily 02/03/2025 Active Simvastatin 20 MG take 1 tablet by bettina every evening for 90 Active Dorzolamide HCl 2 % 1 drop into affected eye Ophthalmic twice daily 02/03/2025 Active Synthroid 112 MCG 1 tablet in the morn ing on an empty stomach Orally Once a day for 90 days Active Immunizations Vaccine Route Administration Date Status Comme [facility] - historic Unknown 02/09/2021 Administered Flu, Fluad (05624) 65 yrs + High Dose Seasonal (2355-1367) Unknown 08/04/2015 Administered Flu, Fluad (96093) 65 yrs + High Dose Seasonal () Unknown 08/14/2016 Administered Flu, Fluad (17593) 65 yrs + High Dose Seasonal () Unknown 09/02/2017 Administered Flu, Fluad (65099) 65 yrs+, single-dose syringe (8261-4766) Unknown 09/28/2023 Administered Flu, Fluzone (18948) 6 mos+, single-dose syringe/vial (4494-1969) Unknown 07/24/2020 Administered Flu, Fluzone (26070) 6 mos+, single-dose syringe/vial () Unknown 07/05/2021 Administered Flu, Fluzone High-Dose (2022 -2023) (08327) 65 yrs+ Unknown 07/14/2022 Administered Pneumococcal (Prevnar 13) Unknown 09/29/2015 Administer ed Pneumococcal (Prevnar 13) Unknown 08/07/2017 Administer ed Pneumococcal (Prevnar 20) Unknown 05/20/2023 Administer ed SARS-COV-2 (COVID 19 Pfizer 30mcg/0.3mL) Unknown 08/02/2021 Administered SARS-COV-2 (COVID 19 Pfizer 30mcg/0.3mL) Unknown 08/29/2021 Administered SARS-COV-2 (COVID 19 Pfizer 30mcg/0.3mL), arpan sucrose Unknown 06/05/2022 Administered Social History Tobacco Use: Social History Observation Description Date Details (start date - stop date) Never Smoker NA - NA Tobacco Use/Smoking Question Answer Notes Patient is a nonsmoker Alcohol Screen (Audit-C) Question Answer Notes Did you have a drink containing alcohol in the p ast year? No Points 0 Interpretation Negative AUDIT-C (Standard) Question Answer Notes Did you have a drink containing alcohol in the p ast year? 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, 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) Active confirmed Problem Pain of right shoulder region (finding) (6167931640) Pain in right shoulder (M25.511) Active confirmed Problem 734385944 Chronic kidney disease, stage 4 (severe) (N18.4) Active confirmed Problem Weakness (38422274) Weakness (R53.1) Active con firmed Problem Chest pain (95586101) Chest pain (R07.9) Active confirmed Problem Fatigue (02830426) Fatigue (R53.83) Active conf irmed Problem Hypertension (72820618) Hypertension (I10) Active confirmed Problem Pneumonia (019729560) Pneumonia (J18.9) Active confirmed Problem Depression (436007491) Depression (F32.9) Active confirmed Problem Osteopenia (135178300) Osteopenia (M85.80) Active confirmed Problem Vertigo (958660276) Vertigo (R42) Active confir med Problem Insomnia (803531877) Insomnia (G47.00) Active confirmed Problem Bilateral lower extremity edema (804984373) Bilateral lower extremity edema (R60.0) Active confirmed Problem Syncope (755163602) Syncope (R55) Active confir med Problem Nausea (201710719) Nausea (R11.0) Active confir med Problem Bronchitis (95071334) Bronchitis (J40) Active confirmed Problem Sinusitis (44512134) Sinusitis (J32.9) Active confirmed Problem Pain in limb (61151120) Foot pain, left (M79.672) Active confirmed Problem Upper respiratory infection (51195883) URI (upper respiratory infection) (J06.9) Active confirmed Problem Pharyngitis (057952902) Pharyngitis (J02.9) Active confirmed Problem Iron deficiency anemia (30302245) Iron deficiency anemia (D50.9) Active confirmed Problem Shingles (2043020) Shingles (B02.9) Active conf irmed Problem Thrombocytopenia (295752011) Thrombocytopenia (D69.6) Active confirmed Problem Acute maxillary sinusitis (48839761) Maxillary sinusitis, acute (J01.00) Active confirmed Problem Laboratory test result abnormal (515993628) Abnormal laboratory test (R89.9) Active confirmed Problem Acute sinusitis (40541508) Acute sinus infection (J01.90) Active confirmed Problem Laboratory test result abnormal (347841024) Elevated lipase (R74.8) Active confirmed Problem Leukocytosis (696801132) Leukocytosis (D72.829) Active confirmed Problem Acute renal failure syndrome (98509431) Acute kidney failure (N17.9) Active confirmed Problem Influenza (1304491) Influenza (J11.1) Active co nfirmed Problem Generalized aches and pains (01637010) Body aches (R52) Active confirmed Problem Unintentional weight loss (337175911) Unintentional weight loss (R63.4) Active confirmed Problem Atypical nevus (89252474) Atypical nevus (D22.9) Active confirmed Problem Leukocytosis (618361525) Elevated WBCs (D72.829) Active confirmed Problem Essential hypertension (12761609) BP (high blood pressure) (I10) Active confirmed Problem Acquired thrombocytopenia (58357391) Acquired thrombocytopenia (D69.6) Active confirmed Problem Viral gastroenteritis caused by Nicholson-like agent (23492758) Gastroenteritis due to norovirus (A08.11) Active confirmed Problem Heart transplant recipient (139876499) Heart transplant recipient (Z94.1) Active confirmed Problem 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 Problem Carcinoma in situ of skin (21676048) 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) Active confirmed Problem Chronic kidney disease stage 3A (disorder) (525749958) Chronic kidney disease (CKD) stage G3a/A1, moderately decreased glomerular filtration rate (GFR) between 45-59 mL/min/1.73 square meter and albuminuria creatinine ratio less than 30 mg/g (N18.31) Active confirmed Problem Dry cough (68387753) Dry cough (R05.8) Active confirmed Problem Postoperative ecchymosis (5487562333) Postoperative ecchymosis (R58) Active confirmed Vital Signs Blood pressure diastolic 92 mm Hg 03/05/2025 Height 62 in 03/05/2025 Blood pressure systolic 162 mm Hg 03/05/2025 Weight 102.8 lbs 03/05/2025 BMI 18.8 kg/m2 03/05/2025 Encounters Encounter Location Date Provider Diagnosis [address] [address] 06/24/2024 Duyenowen Rogers Anxiety disorder, unspecified F41.9 ; Hypomagnesemia E83.42 and Nausea R11.[address] [address] 07/08/2024 Duyenowen Rogers Unintentional weight loss R63.4 ; Diarrhea R19.7 and Vertigo R42 [address] [address] 08/05/2024 Duyen Rogers Depression F32.9 ; Elevated lipase R74.8 ; UTI (urinary tract infection) N39.0 ; Vertigo R42 ; Insomnia G47.00 and Anxiety disorder, unspecified F41.[address] [address] 09/04/2024 Duyenowen Rogers Unintentional weight loss R63.4 ; Hypothyroidism, unspecified E03.9 ; Anxiety disorder, unspecified F41.9 and Depression F32.[address] [address] 10/06/2024 Duyen Val Fatigue R53.83 [facility] [address] [place] [facility] [place] [address] 09/14/2024 Duyen Rogers Iron deficiency anem ia D50.9 ; Unintentional weight loss R63.4 and Fatigue R53.83 [facility] [address] [place] [address] 02/03/2025 King Davis Weakness R53.1 ; Pneumonia J18.9 and Hypertension I10 [facility] [address] [place] [address] 03/05/2025 King Davis Chronic kidney disea se (CKD) stage G3a/A1, moderately decreased glomerular filtration rate (GFR) between 45-59 mL/min/1.73 square meter and albuminuria creatinine ratio less than 30 mg/g N18.31 [facility] [address] [place] [facility] [place] [address] 06/24/2024 Duyen Rogers Dysuria R30.0 [facility] [address] [place] [facility] [place] [address] 06/26/2024 Dueyn Rogers [facility] [address] [place] [address] 07/03/2024 Duyen Rogers [facility] [address] [place] [address] 07/05/2024 King Pradojaylen Elevated WBCs D72.82 9 and Hypomagnesemia E83.42 [facility] [address] [place] [facility] [place] [address] 07/08/2024 Duyen Rogers [facility] [address] [place] [facility] [place] [address] 07/08/2024 Duyen Rogers [facility] [address] [place] [place] [address] 07/09/2024 Duyen Rogers [facility] [address] [place] [facility] [place] [address] 07/13/2024 Duyen Rogers [facility] [address] [place] [address] 07/13/2024 Duyen Rogers [facility] [address] [place] [facility] [place] [address] 07/22/2024 Duyen Rogers Hypomagnesemia E83.4 2 [facility] [address] [place] [place] [address] 07/24/2024 Duyen Rogers Chronic kidney disea se, stage 4 (severe) N18.4 [facility] [address] [place] [place] [address] 07/27/2024 Duyen Rogers Diarrhea R19.7 [facility] [address] [place] [place] [address] 08/03/2024 Duyen Rogers [facility] [address] [place] [facility] [place] [address] 08/05/2024 King Hoy [facility] [address] [place] [facility] [place] [address] 08/05/2024 Duyen Rogers [facility] [address] [place] [place] [address] 08/07/2024 Duyen Rogers Elevated lipase R74. 8 and UTI (urinary tract infection) N39.0 [facility] [address] [place] [place] [address] 08/14/2024 Duyen Rogers Vertigo R42 [facility] [address] [place] [place] [address] 08/31/2024 Duyen Rogers [facility] [address] [facility] [place] [address] 09/04/2024 Duyen Rogers [facility] [address] [place] [facility] [place] [address] 09/07/2024 Duyen Rogers Abnormal laboratory test R89.9 and Nausea R11.0 [facility] [address] [place] [address] 09/08/2024 Duyen Rogers [facility] [address] [place] [facility] [place] [address] 09/10/2024 Duyen Rogers [facility] [address] [place] [address] 09/14/2024 Duyen Rogers [facility] [address] [place] [address] 09/15/2024 Duyen Rogers [facility] [address] [facility] [address] [place] [facility] [place] [address] 09/17/2024 Duyen Rogers Unintentional weight loss R63.4 [facility] [address] [facility] [place] [address] 09/17/2024 Duyen Rogers [facility] [address] [facility] [place] [address] 09/27/2024 Duyen Rogers [facility] [address] [facility] [place] [address] 09/28/2024 Duyen Rogers [facility] [address] [facility] [place] [address] 10/06/2024 Duyen Rogers [facility] [address] [facility] [place] [address] 12/14/2024 [facility] [address] [facility] [place] [address] 12/15/2024 Duyen Rogers Iron deficiency anem ia D50.9 [facility] [address] [facility] [place] [address] 12/18/2024 Duyen Rogers [facility] [address] [facility] [place] [address] 01/10/2025 King Davis [facility] [address] [facility] [place] [address] 01/12/2025 Duyen Rogers [facility] [address] [facility] [place] [address] 01/12/2025 King Davis [facility] [address] [facility] [place] [address] 02/03/2025 King Davis Heart transplant recipient Z94.1 ; Weakness R53.1 and Bronchitis J40 [facility] [address] [place] [address] 02/11/2025 Duyenowen Rmmer [facility] [address] [place] [address] 03/03/2025 King Davis [facility] [address] [place] [address] 03/15/2025 King jaylen [facility] [address] [place] [address] 04/30/2025 Duyen Rogers Diarrhea R19.7 Assessments Encounter Date Diagnosis (ICD Code) Assessment Notes Treatment Notes Treatment Clinical Notes Section Notes 03/05/2025 Chronic kidney disease (CKD) stage G3a/A1, moderately decreased glomerular filtration rate (GFR) between 45-59 mL/min/1.73 square meter and albuminuria creatinine ratio less than 30 mg/g (ICD-10 - N18.31) 06/24/2024 Dysuria (ICD-10 - R30.0) 07/05/2024 Hypomagnesemia (ICD-10 - E83.42) 07/05/2024 Elevated WBCs (ICD-10 - D72.829) 07/22/2024 Hypomagnesemia (ICD-10 - E83.42) 07/24/2024 Chronic kidney disease, stage 4 (severe) (ICD-10 - N18.4) 07/27/2024 Diarrhea (ICD-10 - R19.7) 08/07/2024 UTI (urinary tract infection) (ICD-10 - N39.0) 08/07/2024 Elevated lipase (ICD-10 - R74.8) 08/14/2024 Vertigo (ICD-10 - R42) 09/07/2024 Nausea (ICD-10 - R11.0) 09/07/2024 Abnormal laboratory test (ICD-10 - R89.9) 09/17/2024 Unintentional weight loss (ICD-10 - R63.4) 12/15/2024 Iron deficiency anemia (ICD-10 - D50.9) 02/03/2025 Weakness (ICD-10 - R53.1) 02/03/2025 Heart transplant recipient (ICD-10 - Z94.1) 04/30/2025 Diarrhea (ICD-10 - R19.7) 02/03/2025 Pneumonia (ICD-10 - J18.9) 06/24/2024 Anxiety disorder, unspecified (ICD-10 - F41.9) 07/08/2024 Diarrhea (ICD-10 - R19.7) 07/08/2024 Unintentional weight loss (ICD-10 - R63.4) increase protein, shakes small frequent meals fu 1-2 weeks for wt check 08/05/2024 Depression (ICD-10 - F32.9) trial of trazodone 08/05/2024 Elevated lipase (ICD-10 - R74.8) repeat lab CT? GI referral for fu? 09/04/2024 Unintentional weight loss (ICD-10 - R63.4) referral GI continue to lose loss of appetite, nausea when tries eat small frequent meals, increase protein, protein shakes, eat what sounds good 10/06/2024 Fatigue (ICD-10 - R53.83) fu with cardiology and GI 09/14/2024 Iron deficiency anemia (ICD-10 - D50.9) repeat cbc, iron in 3m 02/03/2025 Weakness (ICD-10 - R53.1) Home healt 02/03/2025 Hypertension (ICD-10 - I10) 09/14/2024 Unintentional weight loss (ICD-10 - R63.4) GI referral [facility]? increase protein, small frequent meals 07/08/2024 Vertigo (ICD-10 - R42) checking labs 08/05/2024 UTI (urinary tract infection) (ICD-10 - N39.0) finish Cipro repeat UA CS 7-10 days after completion abx 09/04/2024 Hypothyroidism, unspecified (ICD-10 - E03.9) 06/24/2024 Hypomagnesemia (ICD-10 - E83.42) resume OTC supplement 02/03/2025 Bronchitis (ICD-10 - J40) 06/24/2024 Nausea (ICD-10 - R11.0) 09/04/2024 Anxiety disorder, unspecified (ICD-10 - F41.9) encouraged counseling 08/05/2024 Vertigo (ICD-10 - R42) increase fluids, electrolytes consider neuro consult routine meclizine instead of prn? see if helps 09/14/2024 Fatigue (ICD-10 - R53.83) 08/05/2024 Insomnia (ICD-10 - G47.00) trial of trazodone 09/04/2024 Depression (ICD-10 - F32.9) restart lexapro has helped most in past 08/05/2024 Anxiety disorder, unspecified (ICD-10 - F41.9) prn clonazepam? helped in past 10/06/2024 Other check on nephrology referral , has seen? 09/14/2024 Other handicap placard rx send iron supplement, repeat labs 3m lab B12 GI referral, imaging? Plan Of Treatment Pending Test Test Name Order Date CMP (COMPLETE METABOLIC PANEL) 4 CMP (COMPLETE METABOLIC PANEL) 4 CMP (COMPLETE METABOLIC PANEL) 3 CMP (COMPLETE METABOLIC PANEL) 4 UA (URINALYSIS, COMPLETE) 08/07/2024 UA (URINALYSIS, COMPLETE) 06/24/2024 CULTURE, STOOL 07/08/2024 LIPID PANEL (CHOL/TRIG/HDL/LDL) 09/02/20 23 CBC WITH DIFF 07/08/2024 CBC WITH DIFF 09/04/2024 UA (URINALYSIS, MICRO ONLY) 08/07/2024 URINE CULTURE 06/24/2024 MAGNESIUM 07/22/2024 MAGNESIUM 07/08/2024 C DIFF TOX PCR STOOL 07/08/2024 INFLUENZA A and B, NASAL/NASOPHARYNGEAL (PCR) 03/05/2023 CBC W/AUTO DIFF 07/05/2024 SARS COVID-2 NASAL - PCR 03/05/2023 SARS COVID-2 NASAL - PCR 11/21/2023 CULTURE URINE 08/07/2024 IRON 09/07/2024 MAGNESIUM 07/05/2024 MAGNESIUM 03/05/2025 PHOSPHORUS 03/05/2025 PROF 14(COMP METB) 03/05/2025 URINE MICROSCOPIC ONLY 06/24/2024 VITAMIN B12 10/06/2024 VITAMIN B12 09/14/2024 THYROID PANEL (T4/TSH/FREE T3) 4 Insurance Providers Payer Name Payer Address Payer Phone Subscriber Number Group Number Insured Name Patient Relationship to Insured Coverage Start Date Coverage End Date [facility] [employer] [employer] [address] [place] [id number] [facility] 2 Sylvia Herrera Self - patient is the insured 3 MEDICAID [place] 2ND INS [address] [facility] [address] [place] [id number] Sylvia Herrera Self - patient is the insured 4 Medical (General) History Medical History History ICD Code Hypertension I10 Bilateral lower extremity edema R60.0 Body aches R52 URI (upper respiratory infection) J06.9 Gastroenteritis due to norovirus A08.11 Nausea R11.0 Spleen disorder D73.9 Vertigo R42 Elevated lipase R74.8 Foot pain, left M79.672 Traumatic arthropathy, unspecified shoul finn M12.519 Pain in right shoulder M25.511 Hypothyroidism, unspecified E03.9 Hyperlipidemia, unspecified E78.5 Dry cough R05.8 Influenza J11.1 Pharyngitis J02.9 Fatigue R53.83 Sinusitis J32.9 Thrombocytopenia D69.6 Pneumonia J18.9 Chest pain R07.9 Shingles B02.9 Syncope R55 Postoperative ecchymosis R58 Squamous cell carcinoma in situ (SCCIS) of skin D04.9 Atypical nevus D22.9 Unintentional weight loss R63.4 Weakness R53.1 Maxillary sinusitis, acute J01.00 Osteopenia M85.80 Chronic kidney disease, stage 3 (moderat e) N18.3 Surgical History Surgery Date(Month/Year) heart transplant 01/18/2006 Hospitalization History Reason Date(Month/Year) ABD pain/dehydration 06/2023 Covid/ Chest discomfort 04/2023
--- OUTSIDE RECORDS SUMMARY | 2025-05-25 08:22 | XMS_ITS | Clinical Summary ---
Author Organization [facility] Address [address] [place] [id number] Care Team Providers Care Rn Transitional Name Role Phone Vijay Davis MD Primary Care Provider [phone] Sang Guerra MD Unavailable [phone] Allergies Active Allergy Reactions Criticality Noted Date Comments Ciprofloxacin Hives Low 06/07/2023 Morphine Other: See Comments Low 08/11/2013 Pt unable to sleep Oxycodone-Acetaminophen GI Upset Low 05/18/2014 Promethazine Hcl Other: See Comments Medium 10/11/2005 hallucinations Medications aspirin(ECOTRIN LOW STRENGTH 81 MG TAB) Take one(1) tablet daily. 0 0 Active acetaminophen 325 mg tablet Take 1-2 tablets by mouth every 4 hours as needed. 0 4 Active alendronate (FOSAMAX) 70 mg tablet Take 1 tablet by mouth once each week. in the morning with a full glass of water, on an empty stomach, and do not take anything else by mouth or lie down for the next 30 minutes. 0 4 Active simvastatin (ZOCOR) 20 mg tablet Take 1 tablet by mouth daily at bedtime. 90 tablet 3 7 Active amitriptyline (ELAVIL) 10 mg tablet Take 1 tablet by mouth daily at bedtime. 9 Active levothyroxine (SYNTHROID) 112 mcg tablet Take 1 tablet by mouth daily at 6 am. 90 tablet 5 Active lipase-protease- amylase (CREON) 24,000-76,000 -120,000 unit delayed release capsule Take 3 capsules by mouth three times a day with meals. 800 capsule 01/23/2025 9:52 AM EST 5 Active brimonidine (ALPHAGAN) 0.2 % ophthalmic solution Use 1 Drop in the left eye three times a day. 15 mL 01/23/2025 9:52 AM EST 5 Active timolol maleate (TIMOPTIC) 0.5 % ophthalmic solution Use 1 Drop in the left eye two times a day. 10 mL 01/23/2025 9:52 AM EST 5 Active ergocalciferol 50,000 unit capsule (VITAMIN D2, DRISDOL) Take 1 capsule by mouth one time a week for 4 doses. 5 capsule 01/23/2025 9:52 AM EST 5 Active latanoprost (XALATAN) 0.005 % ophthalmic solution Use 1 Drop in the left eye daily at bedtime. 2.5 mL 01/23/2025 9:52 AM EST [address] (PROTONIX) 40 mg tablet Take 1 tablet by mouth two times a day before meals at 6 am and 4 pm for 108 doses. 108 tablet 01/23/2025 9:52 AM EST 5 Active sodium bicarbonate 650 mg tablet Take 1 tablet by mouth three times a day. 270 tablet 01/23/2025 9:52 AM EST 5 Active tacrolimus IR (PROGRAF) 0.5 mg capsule Take 1 capsule by mouth two times a day. 180 capsule 01/23/2025 9:52 AM EST 5 Active mycophenolate mofetil (CELLCEPT) 250 mg capsule Take 1 capsule by mouth two times a day. Patient should start on January 30, 2025. 120 capsule 2 5 Active loperamide HCl (IMODIUM) 2 mg tab Take 1 tablet by mouth two times a day as needed. 12 tablet 01/23/2025 9:52 AM EST 5 Active carvedilol (COREG) 12.5 mg tablet Take 1 tablet by mouth two times a day with meals. 180 tablet 5 Active magnesium oxide (MAG-OX) 400 mg (241.3 mg magnesium) tablet Take 1 tablet by mouth three times a day. 90 tablet 5 Active dorzolamide (TRUSOPT) 2 % ophthalmic solution Use 1 Drop in the left eye two times a day. 10 mL 01/23/2025 9:52 AM EST 5 05/03/20 25 Active Problems Problem Noted Date Diagnosed Date Norovirus 01/22/2025 C. difficile diarrhea 01/22/2025 Influenza A 01/22/2025 Acute gastric ulcer without hemorrhage or perfor ation 01/22/2025 Duodenal ulcer 01/22/2025 Severe protein-calorie malnutrition 01/13/2025 Stage 3b chronic kidney disease 01/11/2025 CN III palsy, left 01/11/2025 Small aneurysm of supraclinoid carotid artery Immunocompromised state 01/11/2025 HLD (hyperlipidemia) 01/11/2025 Hypocalcemia 01/11/2025 Normocytic anemia 01/11/2025 Thrombocytopenia 01/11/2025 Exocrine pancreatic insufficiency 01/11/2025 Anxiety disorder 07/05/2015 Prophylactic immunotherapy 11/29/2014 Gastroenteritis 05/18/2014 Overview (05/20/2014): Diarrhea resolved. Stool culture obtained - unrevealing to date Nausea/vomiting seem pain related more than viral No fevers or chills Right groin pain 05/18/2014 Overview (05/20/2014): See above under RLQ pain Diabetes mellitus, type II 04/29/2014 Overview (05/06/2014): Will hold metformin given DREW Hypertension 08/12/2013 Overview (05/07/2014): Will restart losartan today Hypothyroidism 08/12/2013 Overview (05/20/2014): Continue levothyroxine Heart transplanted 08/10/2013 Overview (09/07/2019): Transplant date: 01/18/06 Diagnosis Pre-Txp: dilated, nonischemic cardiomyopathy since 1994. Pathology of Explanted Heart: Dilated cardiomyopathy with Extensive interstitial fibrosis. Status post left ventricular assist device placement with organizing Pericarditis. Coronary atherosclerosis 50% narrowing lad and right coronary. Acute myocyte necrosis, polymorphonuclear leukocyte margination andReperfusion injury with interstitial hemorrhage. basophilic degenearation (right and left atrial muscle). Transplant number: #[id number] Primary laminating machine feeder: Dr. Vianca Valiente CT Surgeon: Dr. Cody GARCIA bridge: Yes / Type: HM2 / Date: 10/23/05 Cross match: Pre-Tx PRAs: Cold ischemic time: High risk donor: No Donor Echo/Cath: No donor cath CMV donor: negative / CMV recipient: positive EBV donor: positive / EBV recipient: positive Toxo donor: NA / Toxo recipient: negative Rejection History: None Other: -- Use LEFT groin for caths (Allodynia of right groin) -- NO DSE d/t previous reactions Resolved Problems Problem Noted Date Diagnosed Date Resolved Date Burn 01/15/2025 01/17/2025 Irritant contact dermatitis due to fecal incontinence 01/15/2025 01/17/2025 Volume depletion 01/12/2025 01/17/2025 Nausea & vomiting 01/11/2025 01/17/2025 Odynophagia 01/11/2025 01/17/2025 Dysphagia 01/11/2025 01/17/2025 Metabolic acidosis 01/11/2025 Respiratory alkalosis 01/11/20252024 Leukocytosis 01/11/2025 01/17/2025 Hypoglycemia 01/11/2025 01/17/2025 Hypomagnesemia 01/11/2025 01/17/2025 Elevated alkaline phosphatase level 01/11/2025 01/17/2025 Pleural effusion on right 01/11/2025 Elevated INR 01/11/2025 01/17/2025 Dysphagia, oropharyngeal 01/11/2025 Pain 11/14/2017 09/02/2019 Delirium 12/03/2014 09/02/2019 Consolidation lung 12/03/2014 9 DREW (acute kidney injury) 12/03/2014 Diarrhea 11/29/2014 09/02/2019 Community acquired pneumonia 11/29/2014 01/17/2025 DREW (acute kidney injury) 05/06/2014 Overview (05/07/2014): Resolved Orthostasis 05/06/2014 05/19/2014 Overview (05/07/2014): Resolved. Will restart losartan today and monitor her BP Right lower quadrant pain 04/29/2014 Overview (05/20/2014): >6 month history of RLQ/groin pain repeated RHC/LHC? Chronic pain following. Appreciate their assistance. Continue tylenol prn Cymbalta 60 daily Topical Lidocaine gel prn - increase to QID Starting neurontin 300 TID Will follow-up with local chronic pain doctor DVT prophylaxis 08/17/2013 09/02/2019 Overview (05/20/2014): SQ heparin Depression 08/12/2013 01/17/2025 Overview (05/20/2014): Continue duloxetine, amitriptyline and clonazepam History of immunosuppression therapy 08/11/2013 08/12/2013 Kidney stone 08/11/2013 05/06/2014 Overview (05/05/2014): Previously had 2 mm distal R ureteral calculus with mild hydronephrosis. This stone passes back in 08/2013. No current stones on CT scan SUMMARY 08/10/2013 09/02/2019 Overview (05/20/2014): This is a 68 year old female with a history of heart transplant in 2006, hypothyroidism, depression, hypertension and nephrolithiasis who recurrent RLQ and right groin pain along with non-bloody diarrhea, nausea and vomiting. Abdominal pain 08/10/2013 05/19/2014 Overview (08/17/2013): Likely related no renal stone in distal ureter. CT abdomen previously with 2mm stone with mild hydro. Ordered renal us tonight to evaluate for worsening hydro. Results show mild hydro. Will continue pain control tonight and urology team to discuss in am. Depression 08/10/2013 08/12/2013 Overview (08/10/2013): cont home anti-depressant. GERD (gastroesophageal reflux disease) 08/10/2013 08/12/2013 Overview (08/10/2013): cont ppi Encounter for long-term (cur rent) use of other medications 08/26/2008 08/12/2013 Chronic ethmoidal sinusitis 10/30/2007 08/12/2013 Heart replaced by transplant 03/19/2006 08/12/2013 steroid osteoporosis 03/15/2006 013 Unspecified essential hypertension 09/02/2019 Overview (08/10/2013): cont outpatient anti-HTN. Unspecified hypothyroidism 0 05/19/2014 Overview (08/10/2013): cont synthroid. 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, unspecified whether detention insulin use (HCC) 02/26/2025 Telephone Ophthalmology [address] [facility] [place] [address] Magy Hui COA Appointment (With Dr Vu) from Last 3 Months Immunizations Immunization Administration Dates Next Due influenza vaccine, unspecified formulation 08/19,09/01/2006 influenza vaccine, whole virus 09/15/2014 novel influenza (W6B2-12) ut ccine, unspecified formulation 12/28/2009 pneumococcal polysaccharide (PPV23) vaccine, 23 valent (PNEUMOVAX 23) 11/01/2012,09/01/2006 Social History Tobacco Use Types Packs/Day Years Used Date Smoking Tobacco: Former Cigarettes 0.3 3 Smokeless Tobacco: Never Comments:quit in 1993 Alcohol Use Standard Drinks/Week Comments No 0 (1 standard drink = 0.6 oz pur e alcohol) Area Deprivation Index Answer Date Chaz rded National Score (1-100), lower number is lower ri sk 61 01/20/2025 State Score (1-10), lower number is lower risk 4 01/20/2025 Data from: https://www.neighborhoodatlas.[facility]/. Last address used for calculation [address] 01/20/2025 Comments No Sex and Gender Information Value Date Recorded Sex Assigned at Not on file Legal Sex Female 7:33 AM EST Gender Identity Not on file Sexual Orientation Not on file Last Filed Vital Signs Vital Sign Reading Time Taken Comments Blood Pressure 154/78 01/25/2025 1:06 PM EST Pulse 82 01/25/2025 1:06 PM EST Temperature 37 C (98.6 F) 01/25/2025 12:31 PM EST Respiratory Rate 16 01/25/2025 12:31 PM EST Oxygen Saturation 98% 01/25/2025 1:06 PM EST Inhaled Oxygen Concentration - - Weight 45.2 kg (99 lb 10.4 oz) 01/25/2025 8:14 A M EST Height 157.5 cm (5' 2.01 ) 01/25/2025 8:14 AM ES T Body Mass Index 18.22 01/25/2025 8:14 AM EST Plan of Treatment Health Maintenance Due Date Last Done Comments Diabetic Foot Exam 1954 Cervical Cancer Screening 1955 Annual PCP Team Chronic Dise ase Visit 1962 Depression Screening 1962 Shingrix Vaccine (1 of 2) 1963 HbA1C 06/14/2015 12/15/2014, 08/02, 12/28/2011, Additional history exists RSV Vaccine (1 - 1-dose 75+ series) 2019 LDL Cholesterol 03/04/2020 03/04/2019, 11/01, 11/20/2016, Additional history exists Covid-19 Vaccine ( - 2023-2 5 season) 2024 06/05/2022, 08/29/2021, 08/02/2021 Advance Directive Discussion 12/02/2024 Medicare Advantage Annual We llness Visit 12/02/2024 Influenza Vaccine (Season Ended) 2025 09/28/2023, 07/14/2022, 07/05/2021, Additional history exists Dilated Retinal Exam 01/20/2026 01/20/2025, 01/20/2025, 01/12/2025 Hemoglobin/Hematocrit 01/25/2026 01/25/2025 , 01/24/2025, 01/23/2025, Additional history exists Serum Creatinine 01/25/2026 01/25/2025, , 01/23/2025, Additional history exists DTaP,Tdap,Td Vaccine (2 - Tdap) 02/09/2031 Bone Density Screening Completed 03/28/2007, 2005 Pneumococcal Vaccine: 50+ Completed 2022, 08/07/2017, 09/29/2015, Additional history exists Goals Goal Patient Goal Type Associated Problems Recent Progress Patient-Stated? 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, unspecified whether detention insulin use (HCC) Posterior vitreous detachment of both eyes LIPID PANEL, FASTING Routine 03/04/2019 7:46 AM EDT Heart replaced by transplant (HCC) HEMOGLOBIN A1C Routine 12/15/2014 9:47 AM EST Heart replaced by transplant ([facility]) Encounter for long-term (current) use of other medications BMD BONE DENSITY Routine 03/28/2007 11:2 0 AM EDT steroid osteoporosis Suction Dredge Dumping Supervisor Steroids from Last 3 Months or Most Recently Relevant to Health Maintenance Results * (ABNORMAL) RENAL FUNCTION PANEL (01/25/2025 3:08 AM EST) Albumin 2.8(L) 3.9 - 4.9 g/dL 01/25/2025 4:30 AM [facility] Calcium, Total 7.6(L) 8.5 - 10.2 mg/dL 01/25/2025 4:30 AM [facility] Phosphorus 2.9 2.7 - 4.8 mg/dL 01/25/2025 4:30 AM [facility] Glucose 149(H) 74 - 99 mg/dL 01/25/2025 4:30 AM [facility] Comment: The [place] Diabetes Association (ADA) provides guidance for cutoff values for fasting glucose and random glucose. The ADA defines fasting as no caloric intake for at least 8 hours. Fasting plasma glucose results between 100 to 125 mg/dL indicate increased risk for diabetes (prediabetes). Fasting plasma glucose results greater than or equal to 126 mg/dL meet the criteria for diagnosis of diabetes. In the absence of unequivocal hyperglycemia, results should be confirmed by repeat testing. In a patient with classic symptoms of hyperglycemia or hyperglycemic crisis, random plasma glucose results greater than or equal to 200 mg/dL meet the criteria for diagnosis of diabetes. Reference: Standards of Medical Care in Diabetes 2016, [place] Diabetes Association. Diabetes Care. 2016.39(Suppl 1). BUN 53(H) 7 - 21 mg/dL 01/25/2025 4:30 AM [facility] Creatinine 2.37(H) 0.58 - 0.96 mg/dL 01/25/2025 4:30 AM [facility] Sodium 133(L) 136 - 144 mmol/L 01/25/2025 4:30 AM [facility] Potassium 4.8 3.7 - 5.1 mmol/L 01/25/2025 4:30 AM [facility] Chloride 98 98 - 107 mmol/L 01/25/2025 4:30 AM [facility] CO2 22 22 - 30 mmol/L 01/25/2025 4:30 AM [facility] Anion Gap 13 8 - 15 mmol/L 01/25/2025 4:30 AM [facility] Estimated Glomerular Filtration Rate 20(L) >=60 mL/min/1. 73m 01/25/2025 4:30 AM EST [facility] Comment:Estimated Glomerular Filtration Rate (eGFR) is calculated using the 2020 CKD-EPI creatinine equation. This equation utilizes serum creatinine, sex, and age as parameters. The creatinine assay has traceable calibration to isotope dilution- mass spectrometry. Refer to KDIGO guidelines for clinical interpretation. In patients with unstable renal function, e.g. those with acute kidney injury, the eGFR may not accurately reflect actual GFR. Blood BLOOD SPECIMEN / Unknown Venipuncture / Unknown 01/25/2025 3:08 AM EST 01/25/2025 3:35 AM EST us Garrett Weaver MD LABORATORY Final Result [facility] [address] [place] [address], * (ABNORMAL) COMPLETE BLOOD COUNT (01/25/2025 3:08 AM EST) WBC 7.98 3.70 - 11.00 k/uL 01/25/2025 3:52 AM [facility] RBC 2.85(L) 3.90 - 5.20 m/uL 01/25/2025 3:52 AM [facility] Hemoglobin 8.3(L) 11.5 - 15.5 g/dL 01/25/2025 3:52 AM [facility] Hematocrit 25.5(L) 36.0 - 46.0 % 01/25/2025 3:52 AM [facility] MCV 89.5 80.0 - 100.0 fL 01/25/2025 3:52 AM [facility] MCH 29.1 26.0 - 34.0 pg 01/25/2025 3:52 AM [facility] MCHC 32.5 30.5 - 36.0 g/dL 01/25/2025 3:52 AM [facility] RDW-CV 13.7 11.5 - 15.0 % 01/25/2025 3:52 AM [facility] Platelet Count 265 150 - 400 k/uL 01/25/2025 3:52 AM [facility] MPV 10.0 9.0 - 12.7 fL 01/25/2025 3:52 AM EST [facility] Absolute nRBC <0.01 <0.01 k/uL 01/25/2025 3:52 AM EST [facility] Blood BLOOD SPECIMEN / Unknown Venipuncture / Unknown 01/25/2025 3:08 AM EST 01/25/2025 3:35 AM EST Garrett Weaver MD LABORATORY Final Result [facility] [address] [facility] [place] [address], * FUNDUS PHOTOS OU (BOTH EYES) (01/20/2025 3:57 PM EST) Anatomical Region Laterality Modality Other Narrative 01/21/2025 8:00 AM EST Date of Procedure 01/20/2025. Weight Reduction Specialist Information Principal System Software Engineer: [email or web address]. Start time: 3:57 PM. Stop time: 3:57 PM. Disc Right Eye Normal. Left Eye Cupping, Pallor. Macula Right Eye Microaneurysms, Hemorrhage. Periphery Right Eye Hemorrhage. Left Eye Hemorrhage. Paulina Taylor PA-C OPHTHALMOLOGY Final Resu lt * LIPID PANEL BASIC (03/04/2019 7:46 AM EDT) Cholesterol, Total 124 <200 mg/dL 03/04/2019 12:26 PM EDT [facility] Comment: <200 mg/dL, Desirable 200-239 mg/dL, Borderline high >239 mg/dL, High Triglyceride 108 <150 mg/dL 03/04/2019 12:26 PM EDT [facility] Comment: <150 mg/dL, Normal 150-199 mg/dL, Borderline high 200-499 mg/dL, High >499 mg/dL, Very high HDL Cholesterol 53 >39 mg/dL 9 12:26 PM EDT [facility] Comment: 40-59 mg/dL, Acceptable >59 mg/dL, High: Negative risk factor for coronary heart disease <40 mg/dL, Low: Positive risk factor for coronary heart disease LDL Cholesterol, Calculated 49 <100 mg/dL 03/04/2019 12:26 PM EDT [facility] Comment: <100 mg/dL, Optimal 100-129 mg/dL, Near optimal/above optimal 130-159 mg/dL, Borderline high 160-189 mg/dL, High >189 mg/dL, Very high Secondary prevention optimal LDL Cholesterol levels are recommended to be < 70 mg/dL Non HDL Cholesterol 71 <130 mg/dL 03/04/2019 12:26 PM EDT [facility] Comment: <130 mg/dL, Optimal 130-159 mg/dL, Near optimal/above optimal 160-189 mg/dL, Borderline high 190-219 mg/dL, High >219 mg/dL, Very high Secondary prevention optimal non HDL Cholesterol levels are recommended to be < 100 mg/dL Fasting Time 12 hrs 03/04/2019 7:48 AM EDT [facility] VLDL Cholesterol 22 <30 mg/dL 03/04/20 12:26 PM T [facility] TC:HDL Ratio 2.34 <5.10 03/04/2019 12:26 PM T [facility] LDL:HDL Ratio 0.92 <2.54 03/04/2019 12:26 PM T [facility] Comment: Reference: 1. National Cholesterol Education Program ATP III Guideline At-A-Glance Quick Desk Reference: National Heart, Lung, and Blood [place]. National Institutes of Health. 2001: NIH Publication No. 01-3305. 2. An International Atherosclerosis Society position paper: global recommendations for the management of dyslipidemia: executive summary, Atherosclerosis. 2014: 232(2):410-413. Blood specimen (specimen) BLOOD SPECIMEN / Unknown 03/04/2019 7:46 AM EDT 03/04/2019 7:48 AM EDT us Hortensia Merino APRN.CASH CLERK LABORATORY Yina ramos Result [facility] [address] [place] [address] [facility] [address] [place] [address] * (ABNORMAL) HGB A1C (12/15/2014 9:47 AM EST) Hemoglobin A1C 6.4(H) 4.0 - 6.0 % [facility] Comment: [place] Diabetes Association guidelines indicate that patients with HgbA1c in the range 5.7-6.4% are at increased risk for development of diabetes, and intervention by lifestyle modification may be beneficial. HgbA1c greater or equal to 6.5% is considered diagnostic of diabetes. Estimated Average Glucose 137 mg/dL [facility] Comment: eAG: (Estimated average glucose) is a calculated value from HgbA1c and is authorization representative of the average blood glucose level in the last 2-3 month period. Blood specimen (specimen) BLOOD SPECIMEN / Unknown 12/15/2014 9:47 AM EST 12/15/2014 9:49 AM EST us Sandrita aSntana LATIN AMERICAN STUDIES DIRECTOR.CASH CLERK LABORATORY Final Re sult [facility] [address] [place] [address] * BMD BONE DENSITY SCREENING (03/28/2007 11:20 AM EDT) Pathologist [facility] Spinner Hydraulic Report Text Exam Performed: DEXA SPINE, HIP BONE DENSITY REPORT: Dual energy x-ray absorptiometry. DXA MODEL: [employer] [id number]. DXA SITE: [facility], [facility]. SITE SCANNED: Lumbar spine, left hip, vertebral fracture assessment (VFA). DATE SCANNED: 03-28-07. RESULTS: Lumbar spine (L1-4) : 1.225 g/cm2, T-score +0.4. Lumbar spine (2005) : 1.186 g/cm2. Lumbar spine (change): +0.038 g/cm2, +3.2%, significant increase. Left total hip : 0.816 g/cm2, T-score -1.5. Total hip (2005) : 0.811 g/cm2. Total hip (change): Stable bone mass. VFA (L5-T8): No fracture. DIAGNOSIS: Osteopenia, significant increase in spine density. FRACTURE RISK: Increased. RISK FACTORS: This patient is a 60 year old white female. She reports steroid therapy after cardiac transplant. She reports calcium, vitamin D and Fosamax. RECOMMENDATIONS: Based on the patient's age and bone density continued therapy with an antiresorptive agent is recommended while on steroids. If the patient discontinues steroid therapy the bisphosphonate could be discontinued. LIMITATIONS: None. FOLLOW-UP: Two years. COPY: Dr. Valiente, F25. Principal Asp Net Software Developer: BALWINDER FERNANDEZ RADIOLOGY Anatomical Region Laterality Modality Other 03/28/2007 11:2 0 AM EDT us Balwinder Fernandez MD BONE DENSITY Final Result from Last 3 Months or Most Recently Relevant to Health Maintenance Additional Health Concerns Infection Onset Date Last Indicated Norovirus 01/20/2025 01/20/2025 Insurance DUAL COMPLETE HMO POS SNP Advance Directives Documents on File Type Date Recorded Patient Crane Hooker Expl anation Advance Directive(s) 01/02/2012 Advance Directive(s) 01/17/2007 Care Teams Rn Transitional Relationship Specialty Start Date End Date Vijay Davis MD PCP - General Family Medicine 05/13/19 Sang Guerra MD [address] [place] [address] Referring Internal Medicine 01/18/25
--- OUTSIDE RECORDS SUMMARY | 2025-05-25 08:22 | XMS_ITS | Referral Summary ---
Author Organization [facility] Address [address] [place] [address] Care Team Providers Care Potato Chip Sorter Name Role Phone Vijay Davis MD Primary Care Provider [phone] Encounters Date Type Department Care Team Description 04/16/2025 Orders Only [address] [id number] Demetria Quiroz MA Heart replaced by transplant ([facility] 03/01/[address] [phone] Demetria Quiroz MA from Last 3 Months Allergies Active Allergy Reactions Criticality Noted Date Comments Promethazine 08/12/2022 Promethazine Hcl Hallucinations,Other High 5 hallucinations hallucinations hallucinations hallucinations Medications aspirin 81 mg EC tablet Take 1 tablet every day by oral route. Active nbmhil-brydwcnj-ryf lase (Creon) 24,000-76,000 -120,000 unit capsule Take [...] the left eye two times daily. 12/03/19 25 Active ganciclovir in sodium chloride 0.9 % 100 mL IVPBIndications:Pne umonia of left lower lobe due to infectious organism Do not start before January 12, 2025. 01/12/20 25 Active citalopram (CeleXA) 20 mg tablet Take 1 tablet by mouth in the morning. 05/10/20 24 Active ferrous sulfate 324 mg (65 mg iron) EC tablet Take 65 mg by mouth with breakfast. 10/06/20 24 Active Active Problems Problem Noted Date Diagnosed [...] 08/12/2013 Overview (01/07/2023): Will restart losartan today Immunizations Immunization Administration Dates Next Due DTP [...] drink = 0.6 oz pur e alcohol) [facility] Utilities Answer Date Recorded In the past 12 months has th e Departing, gas, oil, or water [employer] threatened to shut off services in your [...] any time in the past 12 m [facility], were you homeless or living in a senior care (including now)? No 01/08/2025 Hunger Vital Sign [...] Office Visit [facility] [address] [place] [id number] Jameel Daly MD [address] [facility] [place] [phone] Insurance [employer] MEDICARE Advance Directives * Full Code (Latest Code Status on File) Date Activated Date Inactivated Comments 01/08/2025 9:36 PM 01/11/2025 1:23 AM Care Teams Potato Chip Sorter Relationship Specialty Start Date End Date Vijay Davis MD [address] [facility] [address] [address] PCP - General 08/12/22
--- OUTSIDE RECORDS SUMMARY | 2025-05-25 08:22 | XMS_ITS ---
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 difficile diarrhea 01/22/2025 18 years Influenza A 11/29/2014 8 years 10 months Community acqu ired pneumonia 01/17/2025 Donor Information Organ ABO Source Meets Risk Criteria HLA Match Mismatches Cross Match Heart Transplanted O DBD No A: B: DR: Heart Donor Serology Results Anti-CMV CMV IgG: Negative EBV IgG No results on file Anti-HBcAb HBC Total: Negative HBsAg HBsAg: Negative HBV DNA No results on file Anti-HCV HCV: Negative Anti-HIV I/II HIV-1: Negative Anti-HTLV I/II HTLV: Negative RPR/VDRL RPR: Negative EBV IgM No results on file HBsAb No results on file EBNA No results on file Toxoplasma No results on file HSV 1 No results on file HSV 2 No results on file Quantiferon TB No results on file Measles No results on file Mumps No results on file SARS CoV-2 No results on file anti-HBc No results on file Chagas No results on file WNVNAT No results on file HBV RAMIRO No results on file HCV RAMIRO No results on file Strongyloides No results on file Care Team Name Role Phone Fax Email Loida Mathias APRN.ODETTE Remote Sensing Research Scientist N/A N/A Cody Grullon MD Surgeon [phone] N/A Events Post-Transplant Pre-Transplant Admitted: 10/11/2005 Referred: 10/10/2005 Transplanted: 01/18/2006 Evaluation began: 5 Discharged: 02/05/2006 Center waitlisted: 5
--- OUTSIDE RECORDS SUMMARY | 2025-05-25 08:24 | XMS_ITS | CCD ---
Author Organization [facility] Care Team Providers Care Financial Services Professional Name Role Phone Tao Rooney MD Primary Care Provider SCOT ROGERS Primary Care Physician Tao Rooney MD Primary Care Provider [phone] Tao Rooney MD Primary Care Provider [phone] TAO HEBERT Primary Care Unavailable MISC, DR LOONEY Consulting Unavailable MISC, DR LOONEY Attending Unavailable MISC, DR LOONEY Admitting Unavailable TORIBIO ., DR BURGER Primary Care Unavailable TORIBIO ., DR BURGER Admitting Unavailable TORIBIO ., DR BURGER Consulting Unavailable TORIBIO ., DR BURGER Attending Unavailable TOIRBIO ., DR BURGER Primary Care Unavailable MOUKAHERMILO, DR LANCASTER Admitting Unavailable MOUKAHERMILO, DR LANCASTER Attending Unavailable SCOT ROGERS Consulting Unavailable TORIBIO Sanchez, DR BURGER Primary Care Unavailable SCOT ROGERS Admitting Unavailable SCOT ROGERS Attending Unavailable TORIBIO Sanchez, DR BURGER Primary Care Unavailable MISC, DR LOONEY Consulting Unavailable MISC, DR LOONEY Attending Unavailable MISC, DR LOONEY Admitting Unavailable NANCY BARFIELD Attending Unavailable GOPAL CUI Consulting UnavailHimanshu Sanchez, DR BURGER Primary Care Unavailable AMY Sanchez, NANCY Admitting Unavailable JAZLYN DUBOSE Consulting Unavailable AMY Sanchez, NANCY Consulting Unavailable CAMERON NELSON Consulting Unavaila karen Sanchez, DR BURGER Primary Care Unavailable MOFANNY, DR LANCASTER Admitting Unavailable MOUKAHERMILO, DR LANCASTER Attending Unavailable SCOT ROGERS Attending Unavailable TORIBIO Sanchez, DR BURGER Primary Care Unavailable KRISTIN, DR HAI Chambers Consulting Unavailable SUE, SCOT Admitting Unavailable SUE, SCOT Consulting Unavailable HOY ., DR BURGER Primary Care Unavailable HOY ., DR BURGER Admitting Unavailable HOY ., DR BURGER Consulting Unavailable HOY ., DR BURGER Attending Unavailable WEST, DR JAZLYN Marcelino Consulting Unavailable SUE, SCOT [...] Unavailable AMY ., NANCY Admitting Unavailable AMY .NANCY Attending Unavailable HOY ., DR BURGER Primary Care Unavailable ADELINE FLORES Consulting Unavailable ALEXSANDER HARDING Consulting Unavailable AMY .NANCY Consulting Unavailable SCOT ROGERS Attending Unavailable TORIBIO ., DR BURGER Primary Care Unavailable SUE, SCOT Consulting Unavailable SUE, SCOT Admitting Unavailable NON STAFF Attending Provider Unavailable NON STAFF Attending Unavailable NON STAFF Admitting Unavailable González Shanks Attending Unavailable Tao Rooney MD Primary Care Provider Charlie MCDANIELS, [facility] Unavailable MARLYN TAYLOR Attending Unavailable TAO ROONEY Primary Care Unavailable NEAL, MALATHI Referring Unavailable MARLYN TAYLOR Attending Unavailable HOY, TAO M Primary Care Unavailable NEAL, MALATHI Referring Unavailable HOY, TAO M Primary Care Unavailable BACILIO JOHNS Attending Unavailable NEAL, MALATHI Referring Unavailable HOY, TAO M Primary Care Unavailable HOY, TAO M Primary Care Unavailable MZAIK, OBAIE Admitting Unavailable HORANI, RESHMA N Referring Unavailable VALERIE KAUFFMAN Attending Unavailable MOUKARBELANISHA Attending Unavailable ZHUKIVSKA, CARLOS M Referring Unavailabl e HORANI, RESHMA Referring Unavailable ZHUKIVSKA, CARLOS M Referring Unavailabl e HOY, TAO Referring Unavailable HORANI, RESHMA Admitting Unavailable CIERRA, JERAD T Attending Unavailable ZHUKIVSKA, CARLOS M Referring Unavailabl e CIERRA, JERAD T Referring Unavailable AMSDELL, TRAM Referring Unavailable CIERRA, JERAD T Referring Unavailable MOUKAANISHA AKHTAR Attending Unavailable BELKISUKAANISHA AKHTAR Attending Unavailable Allergies Allergy Classification Reported Allergen(s) Allergy Type Date of Onset Reaction(s) Facility (19 sources) Acetaminophen / oxyCODONE; Translations: [OXYCODONE-ACETAM INOPHEN] Drug Allergy 05-18-20 14 GI Upset [facility] Work Phone: (20 sources) Promethazine; Translations: [PROMETHAZINE HCL] Drug Allergy 10-11-20 05 Other: See Comments [facility] (3 sources) Levamisole; Translations: [Phenergan] Drug Allergy 04-07-20 13 [facility] Repository (2 sources) Morphine; Translations: [MORPHINE] Drug Allergy 08-11-20 13 [facility] (3 sources) Promethazine; Translations: [promethazine] Drug Allergy 08-12-20 22 Loss of consciousness (finding) [facility] (1 source) No Known Medication Allergies; Translations: [No Known Medication Allergies] Propensity to adverse reactions (disorder) [facility] Repository (7 sources) Ciprofloxacin; Translations: [CIPROFLOXACIN] Drug Allergy 06-07-20 23 Hives [facility] (6 sources) Morphine Drug Allergy 08-11-20 13 Other: See Comments [facility] Medications Current Medications Medication Drug Class(es) Dates [...] by bettina th daily at bedtime. amylase 169575 unt / lipase 22621 unt / protease 88865 unt delayed release oral capsule (20 sources) Start: 01-22-2025 End: 04-22-2025 take 3 capsules by mouth three times daily at mealtime hhspfs-wgbcpgte-jg ylase (CREON) 24,000-76,000 -120,000 unit delayed release [...] on above: Take 2 tablets by mo [facility] as needed for up to 180 days. [...] No Dr Don Take 1 capsule by [facility] once daily in AM. 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 No Dr Don Take 1 capsule by [facility] twice daily. 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 No Dr Don Take 1 capsule by [facility] once daily. 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 [...] Comment on above: Take 1 tablet by [facility] once daily. diphenhydrAMINE hydrochloride 2.5 mg/ml oral [...] ED, Starting on Sat01/20/25 at 1530, Until Faith 01/21/25 at 0259, Administer for dilation PROTECT FROM LIGHT proparacaine hydrochloride 5 mg/ml ophthalmic solution (1 source) Local Anesthetic Start: 01-20-2025 End: 01-21-2025 proparacaine 0.5 % 1 Drop (ALCAINE) tropicamide 10 mg/ml ophthalmic solution (2 sources) Anticholinergic Start: 01-20-2025 End: 01-21-2025 tropicamide 1 % 1 Drop (MYDRIACYL) Start: 01-20-2025 End: 01-21-2025 1 Drop, BOTH EYES, DIRECT ED, Starting on Sat01/20/25 at 1530, Until Faith 01/21/25 at 0259, Administer for dilation Problems Active [...] infection (8 sources) Viral gastroenteritis due to Corona-like agent; Translations: [Acute gastroenteropathy due to Corona agent] Onset: 5 01-22-2025 Episodic Mood disorders (2 sources) Mood disorders; Translations: [Depression, unspecified] Onset: 3 Noninfectious gastroenteritis (20 sources) Gastroenteritis; Translations: [Noninfective gastroenteritis and colitis, unspecified] Onset: 4 07-12-2022 Episodic Nonspecific chest pain (1 source) Chest pain; Translations: [Chest pain, unspecified] Onset: 3 Episodic Nutritional deficiencies (7 sources) Deficiency of macronutrients; Translations: [Unspecified severe protein-calorie malnutrition] Onset: 5 01-13-2025 Chronic Other aftercare (1 source) Other manager long term care (current) drug therapy; Translations: [OTH 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 BOND TECHNICIAN CURRENT DRUG THERAPY] Onset: 3 Episodic Other [...] Translations: [Dilated cardiomyopathy] Onset: 2 07-10-2022 Chronic Pneumonia (except that caused by tuberculosis or sexually transmitted disease) (20 sources) Pneumonia; Translations: [Pneumonia, unspecified organism] Onset: 4 Resolved: 5 09-02-2019 Episodic Residual codes; unclassified (4 sources) Localized edema; [...] unspecified] Onset: 5 Resolved: 5 07-12-2022 Episodic Other aftercare (1 source) intermediate project manager (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) use of aspirin; Translations: [COMPOSITE BOND TECHNICIAN CURRENT USE OF ASPIRIN] Onset: 2 Episodic Other aftercare (9 sources) Patient encounter status; Translations: [Other assisted (current) drug therapy] Onset: 8 Resolved: 3 [...] classified] Onset: 5 Resolved: 5 01-11-2025 Episodic Poisoning by other medications and drugs [...] Test Name Value Interpretation Reference Range Facility Telephoneon 03-01-2025 Telephone [id number] Sylvia Herrera 1945 F Date Provider Department Center 03/01/2025 DENISSE CRUZ [facility]UL[facility] Family History Family history unknown: Yes Normal [facility] CNPNon 02-26-2025 CNPN Normal [facility] Office Visiton 02-05-2025 Follow-up visit [id number] Sylvia Herrera 1945 F Date Provider Department Center 02/05/2025 Kirk-ANISHA DALY JULIAN [facility] Family History Family history unknown: Yes Level of Service:86855 AL OFFICE/OUTPATIENT ESTABLISHED MOD MDM 30 MIN Normal [facility] CNPNon 01-26-2025 CNPN Normal [facility] CASE MANAGEMon 01-25-2025 CASE MANAGEM Normal [facility] CBC panel Auto (Bld)on 01-25 Erythrocyte distribution width (RBC) [Ratio] 13.7 % Normal 11.5-15.0 [facility] Comment on above: Order Comment: Speci men Type: BLOOD SPECIMENOrdering Facility: [facility] Address: [address] [place] [address] Performed By: #### 5 8410-2 ####[facility] LABCLIA [id number] [place] [address] [place] Hematocrit (Bld) [Volume fraction] 25.5 % Low 36.0-46.0 [facility] Comment on above: Order Comment: Speci men Type: BLOOD SPECIMENOrdering Facility: [facility] Address: [address] [place] [address] Performed By: #### 5 8410-2 ####[facility] LABCLIA [id number] [place] [address] [place] Hemoglobin (Bld) [Mass/Vol] 8.3 g/dL Low 11.5-15.5 [facility] Comment on above: Order Comment: Speci men Type: BLOOD SPECIMENOrdering Facility: [facility] Address: [address] [place] [address] Performed By: #### 5 8410-2 ####[facility] LABCLIA [id number] [place] [address] [place] MCH (RBC) [Entitic mass] 29.1 pg Normal 26.0-34.0 [facility] Comment on above: Order Comment: Speci men Type: BLOOD SPECIMENOrdering Facility: [facility] Address: [address] [place] [address] Performed By: #### 5 8410-2 ####[facility] [id number] [place] [address] [place] MCHC (RBC) [Mass/Vol] 32.5 g/dL Normal 30.5-36.0 [facility] Comment on above: Order Comment: Speci men Type: BLOOD SPECIMENOrdering Facility: [facility] Address: [address] [place] [address] Performed By: #### 5 8410-2 ####[facility] [id number] [place] [address] [place] MCV (RBC) [Entitic vol] 89.5 fL Normal 80.0-100.0 [facility] Comment on above: Order Comment: Speci men Type: BLOOD SPECIMENOrdering Facility: [facility] Address: [address] [place] [address] Performed By: #### 5 8410-2 ####[facility] [id number] [place] [address] [place] Nucleated RBC (Bld) [#/Vol] 10*3/uL Normal <0.01 [facility] Comment on above: Order Comment: Speci men Type: BLOOD SPECIMENOrdering Facility: [facility] Address: [address] [place] [address] Performed By: #### 5 8410-2 ####[facility] [id number] [place] [address] [place] Platelet mean volume (Bld) [Entitic vol] 10.0 fL Normal 9.0-12.7 [facility] Comment on above: Order Comment: Speci men Type: BLOOD SPECIMENOrdering Facility: [facility] Address: [address] [place] [address] Performed By: #### 5 8410-2 ####[facility] LABCLIA [id number] [place] [address] [place] Platelets (Bld) [#/Vol] 265 10*3/uL Normal 150-400 [facility] Comment on above: Order Comment: Speci men Type: BLOOD SPECIMENOrdering Facility: [facility] Address: [address] [place] [address] Performed By: #### 5 8410-2 ####[facility] LABCLIA [id number] [place] [address] [place] RBC (Bld) [#/Vol] 2.85 10*6/uL Low 3.90-5.20 [facility] Comment on above: Order Comment: Speci men Type: BLOOD SPECIMENOrdering Facility: [facility] Address: [address] [place] [address] Performed By: #### 5 8410-2 ####[facility] LABCLIA [id number] [place] [address] [place] WBC (Bld) [#/Vol] 7.98 10*3/uL Normal 3.70-11.00 [facility] Comment on above: Order Comment: Speci men Type: BLOOD SPECIMENOrdering Facility: [facility] Address: [address] [place] [address] Performed By: #### 5 8410-2 ####[facility] LABIA [id number] [place] [address] [place] CNDSon 01-25-2025 CNDS Normal [facility] CYTOMEGALOVIRUS (CMV) DNA, Q UANTITATIVE PCR, PLASMAon 01-25-2025 CMV DNA ULICES+probe [#/Vol] <35 Normal [facility] Comment on above: Order Comment: Speci men Type: BLOOD SPECIMENOrdering Facility: [facility] Address: [address] [place] [address] Performed By: #### C MVQNT ####[facility] LABCLIA [id number] [place] [address] [place] CMV DNA ULICES+probe [Log #/Vol] <1.54 Normal [facility] Comment on above: Order Comment: Speci men Type: BLOOD SPECIMENOrdering Facility: [facility] Address: [address] [place] [address] Performed By: #### C MVQNT ####[facility] LABIA [id number] [place] [address] [place] CMV DNA ULICES+probe Qn (P) Detected Abnormal Not Detected [facility] Comment on above: Order Comment: Speci men Type: BLOOD SPECIMENOrdering Facility: [facility] Address: [address] [place] [address] Performed By: #### C MVQNT ####[facility] LABIA [id number] [place] [address] [place] Magnesium SerPl-mCncon 01-25 Magnesium [Mass/Vol] 1.7 mg/dL Normal 1.7-2.3 [facility] Comment on above: Order Comment: Speci men Type: BLOOD SPECIMENOrdering Facility: [facility] Address: [address] [place] [address] Performed By: #### 1 9123-9, 91144-2 ####[facility] LABCLIA [id number] [place] [address] [place] NURSING PROGon 01-25-2025 NURSING PROG Normal [facility] Renal function 2000 panelon 01-25-2025 Albumin [Mass/Vol] 2.8 g/dL Low 3.9-4.9 [facility] Comment on above: Order Comment: Speci men Type: BLOOD SPECIMENOrdering Facility: [facility] Address: [address] [place] [id number] Performed By: #### 1 9123-9, 24218-0 ####[facility] LABCLIA [id number] [place] [id number] [place] Anion gap [Moles/Vol] 13 mmol/L Normal 8-15 [facility] Comment on above: Order Comment: Speci men Type: BLOOD SPECIMENOrdering Facility: [facility] Address: [address] [place] [address] Performed By: #### 1 9123-9, 70524-7 ####[facility] LABCLIA [id number] [place] [address] [place] Calcium [Mass/Vol] 7.6 mg/dL Low 8.5-10.2 [facility] Comment on above: Order Comment: Speci men Type: BLOOD SPECIMENOrdering Facility: [facility] Address: [address] [place], [place] [address] Performed By: #### 1 9123-9, 03979-7 ####[facility] LABCLIA [id number] [place] [address] [place] Chloride [Moles/Vol] 98 mmol/L Normal 98-107 [facility] Comment on above: Order Comment: Speci men Type: BLOOD SPECIMENOrdering Facility: [facility] Address: [address] [place], [place] [address] Performed By: #### 1 9123-9, 85102-0 ####[facility] LABCLIA [id number] [place] [id number] [place] CO2 [Moles/Vol] 22 mmol/L Normal 22-30 [facility] Comment on above: Order Comment: Speci men Type: BLOOD SPECIMENOrdering Facility: [facility] Address: [address] [place], [place] [address] Performed By: #### 1 9123-9, 29296-0 ####[facility] LABIA [id number] [address] [address] [place] Creatinine [Mass/Vol] 2.37 mg/dL High 0.58-0.96 [facility] Comment on above: Order Comment: Víctor friend Type: BLOOD SPECIMENOrdering Facility: [facility] Address: [address] [place] [address] Performed By: #### 1 9123-9, 77413-0 ####[facility] LABIA [id number] [place] [address] [place] Creatinine and Glomerular filtration rate.predicted panel (S/P/Bld) 20 mL/min/1.73m??? Low >=60 [facility] Comment on above: Order Comment: Víctor friend Type: BLOOD SPECIMENOrdering Facility: [facility] Address: [address] [place] [address] Result Comment: Kelsey mated Glomerular Filtration Rate [...] actual GFR. Performed By: #### 1 9123-9, 12849-1 ####[facility] LABIA [id number] [place] [address] [place] Glucose [Mass/Vol] 149 mg/dL High 74-99 [facility] Comment on above: Order Comment: Víctor friend Type: BLOOD SPECIMENOrdering Facility: [facility] Address: [address] [place] [address] Result Comment: The [place] Diabetes Association (ADA) provides guidance for cutoff [...] Standards of Medical Care in Diabetes 2016, [place] [employer] Association. Diabetes Care. 2016.39(Suppl 1). Performed By: #### 1 9123-9, 31991-7 ####[facility] LABCLIA [id number] [place] [address] [place] Phosphate [Mass/Vol] 2.9 mg/dL Normal 2.7-4.8 [facility] Comment on above: Order Comment: Speci men Type: BLOOD SPECIMENOrdering Facility: [facility] Address: [address] [place] [address] Performed By: #### 1 9123-9, 65251-3 ####[facility] LABCLIA [id number] [place] [address] [place] Potassium [Moles/Vol] 4.8 mmol/L Normal 3.7-5.1 [facility] Comment on above: Order Comment: Speci men Type: BLOOD SPECIMENOrdering Facility: [facility] Address: [address] [place] [address] Performed By: #### 1 9123-9, 59142-9 ####[facility] LABCLIA [id number] [place] [address] [place] Sodium [Moles/Vol] 133 mmol/L Low 136-144 [facility] Comment on above: Order Comment: Speci men Type: BLOOD SPECIMENOrdering Facility: [facility] Address: [address] [place] [address] Performed By: #### 1 9123-9, 59069-9 ####[facility] LABCLIA [id number] [address] [address] [place] Urea nitrogen [Mass/Vol] 53 mg/dL High 7-21 [facility] Comment on above: Order Comment: Speci men Type: BLOOD SPECIMENOrdering Facility: [facility] Address: [address] [place] [address] Performed By: #### 1 9123-9, 65230-1 ####[facility] LABCLIA [id number] [place] [address] [place] Tacrolimus Bld-mCncon 2024 Tacrolimus (Bld) [Mass/Vol] 6.7 ng/mL Normal 5.0-20.0 [facility] Comment on above: Order Comment: Speci men Type: BLOOD SPECIMENOrdering Facility: [facility] Address: [address] [place] [address] Result Comment: Ema vidualized target levels for [...] situation. Test performed by chemiluminescent immunoassay using Right Hemisphere Alinity i. Performed By: #### 1 1253-2 ####[facility] LABCLIA [id number] [place] [address] [place] CBC panel Auto (Bld)on 01-24 Erythrocyte distribution width (RBC) [Ratio] 13.7 % Normal 11.5-15.0 [facility] Comment on above: Order Comment: Speci men Type: BLOOD SPECIMENOrdering Facility: [facility] Address: [address] [place] [address] Performed By: #### 5 8410-2 ####[facility] LABCLIA [id number] [place] [address] [place] Hematocrit (Bld) [Volume fraction] 22.3 % Low 36.0-46.0 [facility] Comment on above: Order Comment: Speci men Type: BLOOD SPECIMENOrdering Facility: [facility] Address: [address] [place] [address] Performed By: #### 5 8410-2 ####[facility] LABCLIA [id number] [place] [address] [place] Hemoglobin (Bld) [Mass/Vol] 7.2 g/dL Low 11.5-15.5 [facility] Comment on above: Order Comment: Speci men Type: BLOOD SPECIMENOrdering Facility: [facility] Address: [address] [place] [address] Performed By: #### 5 8410-2 ####[facility] LABCLIA [id number] [place] [address] [place] MCH (RBC) [Entitic mass] 29.8 pg Normal 26.0-34.0 [facility] Comment on above: Order Comment: Speci men Type: BLOOD SPECIMENOrdering Facility: [facility] Address: [address] [place] [address] Performed By: #### 5 8410-2 ####[facility] LABIA [id number] [place] [address] [place] MCHC (RBC) [Mass/Vol] 32.3 g/dL Normal 30.5-36.0 [facility] Comment on above: Order Comment: Speci men Type: BLOOD SPECIMENOrdering Facility: [facility] Address: [address] [place] [address] Performed By: #### 5 8410-2 ####[facility] LABCLIA [id number] [place] [address] [place] MCV (RBC) [Entitic vol] 92.1 fL Normal 80.0-100.0 [facility] Comment on above: Order Comment: Speci men Type: BLOOD SPECIMENOrdering Facility: [facility] Address: [address] [place] [address] Performed By: #### 5 8410-2 ####[facility] LABCLIA [id number] [place] [address] [place] Nucleated RBC (Bld) [#/Vol] 10*3/uL Normal <0.01 [facility] Comment on above: Order Comment: Speci men Type: BLOOD SPECIMENOrdering Facility: [facility] Address: [address] [place] [address] Performed By: #### 5 8410-2 ####[facility] LABIA [id number] [place] [address] [place] Platelet mean volume (Bld) [Entitic vol] 10.4 fL Normal 9.0-12.7 [facility] Comment on above: Order Comment: Speci men Type: BLOOD SPECIMENOrdering Facility: [facility] Address: [address] [place] [address] Performed By: #### 5 8410-2 ####[facility] [id number] [place] [address] [place] Platelets (Bld) [#/Vol] 274 10*3/uL Normal 150-400 [facility] Comment on above: Order Comment: Speci men Type: BLOOD SPECIMENOrdering Facility: [facility] Address: [address] [place] [address] Performed By: #### 5 8410-2 ####[facility] [id number] [place] [address] [place] RBC (Bld) [#/Vol] 2.42 10*6/uL Low 3.90-5.20 [facility] Comment on above: Order Comment: Speci men Type: BLOOD SPECIMENOrdering Facility: [facility] Address: [address] [place] [address] Performed By: #### 5 8410-2 ####[facility] LABIA [id number] [place] [address] [place] WBC (Bld) [#/Vol] 6.83 10*3/uL Normal 3.70-11.00 [facility] Comment on above: Order Comment: Speci men Type: BLOOD SPECIMENOrdering Facility: [facility] Address: [address] [place] [address] Performed By: #### 5 8410-2 ####[facility] LABCLIA [id number] [place] [address] [place] Magnesium SerPl-mCncon 01-24 Magnesium [Mass/Vol] 1.8 mg/dL Normal 1.7-2.3 [facility] Comment on above: Order Comment: Speci men Type: BLOOD SPECIMENOrdering Facility: [facility] Address: [address] [place] [address] Performed By: #### 1 9123-9, 11694-2 ####[facility] LABCLIA [id number] [place] [address] [place] Osmolality SerPlon Osmolality [Osmolality] 290 mosm/kg Normal 275-300 [facility] Comment on above: Order Comment: Speci men Type: BLOOD SPECIMENOrdering Facility: [facility] Address: [address] [place] [address] Performed By: #### 2 692-2 ####[facility] LABIA [id number] [place] [address] [place] Osmolality Uron 01-24-2025 Osmolality (U) [Osmolality] 332 mosm/kg Normal 50-1200 [facility] Comment on above: Order Comment: Speci men Type: URINE SPECIMENOrdering Facility: [facility] Address: [address] [place] [address] Performed By: #### 2 695-5 ####[facility] LABIA [id number] [place] [id number] [place] Renal function 2000 panelon 01-24-2025 Albumin [Mass/Vol] 2.7 g/dL Low 3.9-4.9 [facility] Comment on above: Order Comment: Speci men Type: BLOOD SPECIMENOrdering Facility: [facility] Address: [address] [place] [id number] Performed By: #### 1 9123-9, 07334-2 ####[facility] LABCLIA [id number] [address] [address] [place] Anion gap [Moles/Vol] 10 mmol/L Normal 8-15 [facility] Comment on above: Order Comment: Speci men Type: BLOOD SPECIMENOrdering Facility: [facility] Address: [address] [place] [id number] Performed By: #### 1 9123-9, 30158-6 ####[facility] LABCLIA [id number] [place] [address] [place] Calcium [Mass/Vol] 7.5 mg/dL Low 8.5-10.2 [facility] Comment on above: Order Comment: Speci men Type: BLOOD SPECIMENOrdering Facility: [facility] Address: [address] [place] [id number] Performed By: #### 1 9123-9, 33552-5 ####[facility] LABCLIA [id number] [place] [address] [place] Chloride [Moles/Vol] 98 mmol/L Normal 98-107 [facility] Comment on above: Order Comment: Speci men Type: BLOOD SPECIMENOrdering Facility: [facility] Address: [address] [place] [id number] Performed By: #### 1 9123-9, 56359-1 ####[facility] LABCLIA [id number] [place] [id number] [place] CO2 [Moles/Vol] 23 mmol/L Normal 22-30 [facility] Comment on above: Order Comment: Speci men Type: BLOOD SPECIMENOrdering Facility: [facility] Address: [address] [place] [address] Performed By: #### 1 9123-9, 53710-7 ####[facility] LABCLIA [id number] [place] [address] [place] Creatinine [Mass/Vol] 2.48 mg/dL High 0.58-0.96 [facility] Comment on above: Order Comment: Víctor friend Type: BLOOD SPECIMENOrdering Facility: [facility] Address: [address] [place] [address] Performed By: #### 1 9123-9, 87344-1 ####[facility] LABIA [id number] [place] [address] [place] Creatinine and Glomerular filtration rate.predicted panel (S/P/Bld) 19 mL/min/1.73m??? Low >=60 [facility] Comment on above: Order Comment: Víctor friend Type: BLOOD SPECIMENOrdering Facility: [facility] Address: [address] [place] [address] Result Comment: Kelsey mated Glomerular Filtration Rate [...] actual GFR. Performed By: #### 1 9123-9, 91694-5 ####[facility] LABIA [id number] [place] [address] [place] Glucose [Mass/Vol] 130 mg/dL High 74-99 [facility] Comment on above: Order Comment: Víctor friend Type: BLOOD SPECIMENOrdering Facility: [facility] Address: [address] [place] [address] Result Comment: The [place] Diabetes [employer] (ADA) provides guidance for cutoff [...] Standards of Medical Care in Diabetes 2016, [place] [employer]. Diabetes Care. 2016.39(Suppl 1). Performed By: #### 1 9123-9, 90436-8 ####[facility] LABCLIA [id number] [place] [address] [place] Phosphate [Mass/Vol] 3.3 mg/dL Normal 2.7-4.8 [facility] Comment on above: Order Comment: Speci men Type: BLOOD SPECIMENOrdering Facility: [facility] Address: [address] [place] [address] Performed By: #### 1 91239, 21667-2 ####[facility] LABIA [id number] [place] [address] [place] Potassium [Moles/Vol] 5.1 mmol/L Normal 3.7-5.1 [facility] Comment on above: Order Comment: Speci men Type: BLOOD SPECIMENOrdering Facility: [facility] Address: [address] [place] [address] Performed By: #### 1 9123-9, 53362-0 ####[facility] LABIA [id number] [place] [address] [place] Sodium [Moles/Vol] 131 mmol/L Low 136-144 [facility] Comment on above: Order Comment: Speci men Type: BLOOD SPECIMENOrdering Facility: [facility] Address: [address] [place] [address] Performed By: #### 1 9123-9, 28317-2 ####[facility] LABCLIA [id number] [address] [address] [place] Urea nitrogen [Mass/Vol] 54 mg/dL High 7-21 [facility] Comment on above: Order Comment: Speci men Type: BLOOD SPECIMENOrdering Facility: [facility] Address: [address] [place] [address] Performed By: #### 1 9123-9, 82331-5 ####[facility] LABCLIA [id number] [place] [address] [place] Sodium ?Tm Ur-sCncon 025 Sodium Unsp time (U) [Moles/Vol] 100 mmol/L Normal 14-216 [facility] Comment on above: Order Comment: Speci men Type: URINE SPECIMENOrdering Facility: [facility] Address: [address] [place] [address] Performed By: #### 3 5678-2 ####[facility] LABCLIA [id number] [place] [address] [place] TYPE + SCREENon 01-24-2025 ABO O Normal [facility] Comment on above: Order Comment: Speci men Type: BLOOD SPECIMENOrdering Facility: [facility] Address: [address] [place] [address] Performed By: #### T SCR ####[facility] BLOOD BANKCLIA [id number] [place] [address] [place] Rh Nom (Bld) Negative Normal [facility] Comment on above: Order Comment: Speci men Type: BLOOD SPECIMENOrdering Facility: [facility] Address: [address] [place] [address] Performed By: #### T SCR ####[facility] BLOOD BANKCLIA [id number] [place] [address] [place] TYPE AND SCREEN EXPIRATION 01/27/2025 23:59 Normal [facility] Comment on above: Order Comment: Speci men Type: BLOOD SPECIMENOrdering Facility: [facility] Address: [address] [place] [address] Performed By: #### T SCR ####[facility] BANKIA [id number] [address] [place] Tacrolimus Bld-mCncon 2024 Tacrolimus (Bld) [Mass/Vol] 8.2 ng/mL Normal 5.0-20.0 [facility] Comment on above: Order Comment: Speci men Type: BLOOD SPECIMENOrdering Facility: [facility] Address: [address] [place] [address] Result Comment: Ema vidualized target levels for [...] situation. Test performed by chemiluminescent immunoassay using Right Hemisphere Alinity i. Performed By: #### 1 1253-2 ####[facility] LABCLIA [id number] [address] [place] CASE MANAGEMon 01-23-2025 CASE MANAGEM Normal [facility] CBC panel Auto (Bld)on 01-23 Erythrocyte distribution width (RBC) [Ratio] 13.7 % Normal 11.5-15.0 [facility] Comment on above: Order Comment: Speci men Type: BLOOD SPECIMENOrdering Facility: [facility] Address: [address] [place] [address] Performed By: #### 5 8410-2 ####[facility] LABCLIA [id number] [place] [id number] [place] [facility] Hematocrit (Bld) [Volume fraction] 25.1 % Low 36.0-46.0 [facility] Comment on above: Order Comment: Speci men Type: BLOOD SPECIMENOrdering Facility: [facility] Address: [address] [place] [address] Performed By: #### 5 8410-2 ####[facility] LABCLIA [id number] [place] [address] [place] Hemoglobin (Bld) [Mass/Vol] 8.1 g/dL Low 11.5-15.5 [facility] Comment on above: Order Comment: Speci men Type: BLOOD SPECIMENOrdering Facility: [facility] Address: [address] [place] [address] Performed By: #### 5 8410-2 ####[facility] LABIA [id number] [place] [address] [place] MCH (RBC) [Entitic mass] 29.3 pg Normal 26.0-34.0 [facility] Comment on above: Order Comment: Speci men Type: BLOOD SPECIMENOrdering Facility: [facility] Address: [address] [place] [address] Performed By: #### 5 8410-2 ####[facility] [id number] [place] [address] [place] MCHC (RBC) [Mass/Vol] 32.3 g/dL Normal 30.5-36.0 [facility] Comment on above: Order Comment: Speci men Type: BLOOD SPECIMENOrdering Facility: [facility] Address: [address] [place] [address] Performed By: #### 5 8410-2 ####[facility] LABIA [id number] [place] [address] [place] MCV (RBC) [Entitic vol] 90.9 fL Normal 80.0-100.0 [facility] Comment on above: Order Comment: Speci men Type: BLOOD SPECIMENOrdering Facility: [facility] Address: [address] [place] [address] Performed By: #### 5 8410-2 ####[facility] LABIA [id number] [place] [address] [place] Nucleated RBC (Bld) [#/Vol] 10*3/uL Normal <0.01 [facility] Comment on above: Order Comment: Speci men Type: BLOOD SPECIMENOrdering Facility: [facility] Address: [address] [place] [address] Performed By: #### 5 8410-2 ####[facility] LABCLIA [id number] [place] [address] [place] Platelet mean volume (Bld) [Entitic vol] 10.1 fL Normal 9.0-12.7 [facility] Comment on above: Order Comment: Speci men Type: BLOOD SPECIMENOrdering Facility: [facility] Address: [address] [place] [address] Performed By: #### 5 8410-2 ####[facility] LABIA [id number] [place] [address] [place] Platelets (Bld) [#/Vol] 288 10*3/uL Normal 150-400 [facility] Comment on above: Order Comment: Speci men Type: BLOOD SPECIMENOrdering Facility: [facility] Address: [address] [place] [address] Performed By: #### 5 8410-2 ####[facility] LABIA [id number] [place] [address] [place] RBC (Bld) [#/Vol] 2.76 10*6/uL Low 3.90-5.20 [facility] Comment on above: Order Comment: Speci men Type: BLOOD SPECIMENOrdering Facility: [facility] Address: [address] [place] [address] Performed By: #### 5 8410-2 ####[facility] LABIA [id number] [place] [address] [place] WBC (Bld) [#/Vol] 8.89 10*3/uL Normal 3.70-11.00 [facility] Comment on above: Order Comment: Speci men Type: BLOOD SPECIMENOrdering Facility: [facility] Address: [address] [place] [address] Performed By: #### 5 8410-2 ####[facility] LABCLIA [id number] [place] [address] [place] Magnesium SerPl-mCncon 01-23 Magnesium [Mass/Vol] 1.8 mg/dL Normal 1.7-2.3 [facility] Comment on above: Order Comment: Speci men Type: BLOOD SPECIMENOrdering Facility: [facility] Address: [address] [place] [address] Performed By: #### 1 9123-9 ####[facility] LABIA [id number] [place] [address] [place] Magnesium [Mass/Vol] 1.6 mg/dL Low 1.7-2.3 [facility] Comment on above: Order Comment: Speci men Type: BLOOD SPECIMENOrdering Facility: [facility] Address: [address] [place] [address] Performed By: #### 1 9123-9, 79690-6 ####[facility] LABCLIA [id number] [place] [address] [place] Renal function [address] [place], [place] [address]on 01-23-2025 Albumin [Mass/Vol] 3.0 g/dL Low 3.9-4.9 [facility] Comment on above: Order Comment: Speci men Type: BLOOD SPECIMENOrdering Facility: [facility] Address: [address] [place] [address] Performed By: #### 1 9123-9, 15122-2 ####[facility] LABIA [id number] [place] [address] [place] Anion gap [Moles/Vol] 10 mmol/L Normal 8-15 [facility] Comment on above: Order Comment: Speci men Type: BLOOD SPECIMENOrdering Facility: [facility] Address: [address] [place] [address] Performed By: #### 1 9123-9, 80890-5 ####[facility] LABCLIA [id number] [facility] [place] [address] [place] Calcium [Mass/Vol] 8.0 mg/dL Low 8.5-10.2 [facility] Comment on above: Order Comment: Speci men Type: BLOOD SPECIMENOrdering Facility: [facility] Address: [address] [place] [address] Performed By: #### 1 9123-9, 46243-3 ####[facility] LABCLIA [id number] [facility] [place] [address] [place] Chloride [Moles/Vol] 97 mmol/L Low 98-107 [facility] Comment on above: Order Comment: Speci men Type: BLOOD SPECIMENOrdering Facility: [facility] Address: [address] [place] [address] Performed By: #### 1 9123-9, 05059-5 ####[facility] LABCLIA [id number] [facility] [place] [address] [place] CO2 [Moles/Vol] 24 mmol/L Normal 22-30 [facility] Comment on above: Order Comment: Speci men Type: BLOOD SPECIMENOrdering Facility: [facility] Address: [address] [place], [place] [address] Performed By: #### 1 9123-9, 90322-8 ####[facility] LABCLIA [id number] [facility] [place] [address] [place] Creatinine [Mass/Vol] 2.26 mg/dL High 0.58-0.96 [facility] Comment on above: Order Comment: Speci men Type: BLOOD SPECIMENOrdering Facility: [facility] Address: [address] [place], [place] [address] Performed By: #### 1 9123-9, 53738-1 ####[facility] LABCLIA [id number] [place] [address] [place] Creatinine and Glomerular filtration rate.predicted panel (S/P/Bld) 21 mL/min/1.73m??? Low >=60 [facility] Comment on above: Order Comment: Víctor friend Type: BLOOD SPECIMENOrdering Facility: [facility] Address: [address] [place] [address] Result Comment: Kelsey mated Glomerular Filtration Rate [...] actual GFR. Performed By: #### 1 9123-9, 17334-3 ####[facility] LABCLIA [id number] [place] [address] [place] Glucose [Mass/Vol] 182 mg/dL High 74-99 [facility] Comment on above: Order Comment: Víctor friend Type: BLOOD SPECIMENOrdering Facility: [facility] Address: [address] [place] [address] Result Comment: The [place] Diabetes Association (ADA) provides guidance for cutoff [...] Standards of Medical Care in Diabetes 2016, [place] [employer]. Diabetes Care. 2016.39(Suppl 1). Performed By: #### 1 9123-9, 43862-2 ####[facility] LABCLIA [id number] [place] [id number] [place] Phosphate [Mass/Vol] 2.8 mg/dL Normal 2.7-4.8 [facility] Comment on above: Order Comment: Speci men Type: BLOOD SPECIMENOrdering Facility: [facility] Address: [address] [place] [address] Performed By: #### 1 9123-9, 75663-5 ####[facility] LABCLIA [id number] [place] [address] [place] Potassium [Moles/Vol] 5.1 mmol/L Normal 3.7-5.1 [facility] Comment on above: Order Comment: Speci men Type: BLOOD SPECIMENOrdering Facility: [facility] Address: [address] [place] [address] Performed By: #### 1 9123-9, 02704-8 ####[facility] LABCLIA [id number] [place] [address] [place] Sodium [Moles/Vol] 131 mmol/L Low 136-144 [facility] Comment on above: Order Comment: Speci men Type: BLOOD SPECIMENOrdering Facility: [facility] Address: [address] [place] [address] Performed By: #### 1 9123-9, 55807-1 ####[facility] LABCLIA [id number] [place] [address] [place] Urea nitrogen [Mass/Vol] 49 mg/dL High 7-21 [facility] Comment on above: Order Comment: Speci men Type: BLOOD SPECIMENOrdering Facility: [facility] Address: [address] [place] [address] Performed By: #### 1 9123-9, 57320-8 ####[facility] LABCLIA [id number] [place] [address] [place] Tacrolimus Bld-mCncon 2024 Tacrolimus (Bld) [Mass/Vol] 11.0 ng/mL Normal 5.0-20.0 [facility] Comment on above: Order Comment: Víctor friend Type: BLOOD SPECIMENOrdering Facility: [facility] Address: [address] [place] [address] Result Comment: Ema vidualized target levels for [...] situation. Test performed by chemiluminescent immunoassay using Right Hemisphere Alinity i. Performed By: #### 1 1253-2 ####[facility] LABIA [id number] [place] [address] [place] CASE MANAGEMon 01-22-2025 CASE MANAGEM Normal [facility] CBC panel Auto (Bld)on 01-22 Erythrocyte distribution width (RBC) [Ratio] 13.7 % Normal 11.5-15.0 [facility] Comment on above: Order Comment: Víctor friend Type: BLOOD SPECIMENOrdering Facility: [facility] Address: [address] [place] [address] Performed By: #### 5 8410-2 ####[facility] LABIA [id number] [place] [address] [place] Hematocrit (Bld) [Volume fraction] 23.7 % Low 36.0-46.0 [facility] Comment on above: Order Comment: Víctor friend Type: BLOOD SPECIMENOrdering Facility: [facility] Address: [address] [place] [address] Performed By: #### 5 8410-2 ####[facility] LABIA [id number] [place] [address] [place] Hemoglobin (Bld) [Mass/Vol] 7.6 g/dL Low 11.5-15.5 [facility] Comment on above: Order Comment: Víctor friend Type: BLOOD SPECIMENOrdering Facility: [facility] Address: [address] [place] [address] Performed By: #### 5 8410-2 ####[facility] LABCLIA [id number] [place] [address] [place] MCH (RBC) [Entitic mass] 29.5 pg Normal 26.0-34.0 [facility] Comment on above: Order Comment: Speci men Type: BLOOD SPECIMENOrdering Facility: [facility] Address: [address] [place] [address] Performed By: #### 5 8410-2 ####[facility] LABIA [id number] [place] [address] [place] MCHC (RBC) [Mass/Vol] 32.1 g/dL Normal 30.5-36.0 [facility] Comment on above: Order Comment: Speci men Type: BLOOD SPECIMENOrdering Facility: [facility] Address: [address] [place] [address] Performed By: #### 5 8410-2 ####[facility] LABIA [id number] [place] [address] [place] MCV (RBC) [Entitic vol] 91.9 fL Normal 80.0-100.0 [facility] Comment on above: Order Comment: Speci men Type: BLOOD SPECIMENOrdering Facility: [facility] Address: [address] [place] [address] Performed By: #### 5 8410-2 ####[facility] LABIA [id number] [place] [address] [place] Nucleated RBC (Bld) [#/Vol] 10*3/uL Normal <0.01 [facility] Comment on above: Order Comment: Speci men Type: BLOOD SPECIMENOrdering Facility: [facility] Address: [address] [place] [address] Performed By: #### 5 8410-2 ####[facility] LABCLIA [id number] [place] [address] [place] Platelet mean volume (Bld) [Entitic vol] 9.7 fL Normal 9.0-12.7 [facility] Comment on above: Order Comment: Speci men Type: BLOOD SPECIMENOrdering Facility: [facility] Address: [address] [place] [address] Performed By: #### 5 8410-2 ####[facility] LABIA [id number] [place] [address] [place] Platelets (Bld) [#/Vol] 254 10*3/uL Normal 150-400 [facility] Comment on above: Order Comment: Speci men Type: BLOOD SPECIMENOrdering Facility: [facility] Address: [address] [place] [address] Performed By: #### 5 8410-2 ####[facility] LABIA [id number] [place] [address] [place] RBC (Bld) [#/Vol] 2.58 10*6/uL Low 3.90-5.20 [facility] Comment on above: Order Comment: Speci men Type: BLOOD SPECIMENOrdering Facility: [facility] REHABILITATION Address: [address] [place] [address] Performed By: #### 5 8410-2 ####[facility] LABIA [id number] [place] [address] [place] WBC (Bld) [#/Vol] 5.73 10*3/uL Normal 3.70-11.00 [facility] Comment on above: Order Comment: Speci men Type: BLOOD SPECIMENOrdering Facility: [facility] Address: [address] [place] [address] Performed By: #### 5 8410-2 ####[facility] LABCLIA [id number] [place] [address] [place] Magnesium SerPl-mCncon 02-21 -2025 Magnesium [Mass/Vol] 2.2 mg/dL Normal 1.7-2.3 [facility] Comment on above: Order Comment: Speci men Type: BLOOD SPECIMENOrdering Facility: [facility] Address: [address] [place] [address] Result Comment: Resu lt rechecked. Performed By: #### 1 9123-9, 16289-9 ####[facility] LABCLIA [id number] [facility] [place] [address] [place] Renal function 2000 panelon 01-22-2025 Albumin [Mass/Vol] 2.9 g/dL Low 3.9-4.9 [facility] Comment on above: Order Comment: Speci men Type: BLOOD SPECIMENOrdering Facility: [facility] Address: [address] [place] [address] Performed By: #### 1 9123-9, 57657-7 ####[facility] LABCLIA [id number] [facility] [place] [address] [place] Anion gap [Moles/Vol] 11 mmol/L Normal 8-15 [facility] Comment on above: Order Comment: Speci men Type: BLOOD SPECIMENOrdering Facility: [facility] Address: [address] [place] [address] Performed By: #### 1 9123-9, 14600-0 ####[facility] LABCLIA [id number] [facility] [place] [address] [place] Calcium [Mass/Vol] 7.5 mg/dL Low 8.5-10.2 [facility] Comment on above: Order Comment: Speci men Type: BLOOD SPECIMENOrdering Facility: [facility] Address: [address] [place] [address] Performed By: #### 1 9123-9, 56480-0 ####[facility] LABCLIA [id number] [facility] [place] [address] [place] Chloride [Moles/Vol] 100 mmol/L Normal 98-107 [facility] Comment on above: Order Comment: Speci men Type: BLOOD SPECIMENOrdering Facility: [facility] Address: [address] [place] [address] Performed By: #### 1 9123-9, 33861-1 ####[facility] LABIA [id number] [place] [address] [place] CO2 [Moles/Vol] 22 mmol/L Normal 22-30 [facility] Comment on above: Order Comment: Speci men Type: BLOOD SPECIMENOrdering Facility: [facility] Address: [address] [place] [address] Performed By: #### 1 9123-9, 35386-8 ####[facility] LABIA [id number] [place] [address] [place] Creatinine [Mass/Vol] 2.40 mg/dL High 0.58-0.96 [facility] Comment on above: Order Comment: Speci men Type: BLOOD SPECIMENOrdering Facility: [facility] Address: [address] [place] [address] Performed By: #### 1 9123-9, 59402-8 ####[facility] LABIA [id number] [place] [address] [place] Creatinine and Glomerular filtration rate.predicted panel (S/P/Bld) 20 mL/min/1.73m??? Low >=60 [facility] Comment on above: Order Comment: Speci men Type: BLOOD SPECIMENOrdering Facility: [facility] Address: [address] [place] [address] Result Comment: Kelsey mated Glomerular Filtration Rate [...] actual GFR. Performed By: #### 1 9123-9, 40821-0 ####[facility] LABCLIA [id number] [place] [address] [place] Glucose [Mass/Vol] 173 mg/dL High 74-99 [facility] Comment on above: Order Comment: Speci men Type: BLOOD SPECIMENOrdering Facility: [facility] Address: [address] [place] [address] Result Comment: The [place] [employer] (ADA) provides guidance for cutoff [...] Standards of Medical Care in Diabetes 2016, [place] [employer]. Diabetes Care. 2016.39(Suppl 1). Performed By: #### 1 9123-9, 80959-1 ####[facility] LABIA [id number] [place] [address] [place] Phosphate [Mass/Vol] 3.2 mg/dL Normal 2.7-4.8 [facility] Comment on above: Order Comment: Speci men Type: BLOOD SPECIMENOrdering Facility: [facility] Address: [address] [place] [address] Performed By: #### 1 9123-9, 07403-0 ####[facility] LABIA [id number] [place] [address] [place] Potassium [Moles/Vol] 5.2 mmol/L High 3.7-5.1 [facility] Comment on above: Order Comment: Speci men Type: BLOOD SPECIMENOrdering Facility: [facility] Address: [address] [place] [address] Performed By: #### 1 9123-9, 95060-2 ####[facility] LABCLIA [id number] [place] [address] [place] Sodium [Moles/Vol] 133 mmol/L Low 136-144 [facility] Comment on above: Order Comment: Verenai ronna Type: BLOOD SPECIMENOrdering Facility: [facility] Address: [address] [place] [address] Performed By: #### 1 9123-9, 09198-8 ####[facility] LABCLIA [id number] [place] [address] [place] Urea nitrogen [Mass/Vol] 52 mg/dL High 7-21 [facility] Comment on above: Order Comment: Speci men Type: BLOOD SPECIMENOrdering Facility: [facility] Address: [address] [place] [address] Performed By: #### 1 9123-9, 28823-4 ####[facility] LABIA [id number] [address] [place] Tacrolimus Bld-ncon 2024 Tacrolimus (Bld) [Mass/Vol] 10.6 ng/mL Normal 5.0-20.0 [facility] Comment on above: Order Comment: Víctor friend Type: BLOOD SPECIMENOrdering Facility: [facility] Address: [address] [place] [address] Result Comment: Ema vidualized target levels for [...] situation. Test performed by chemiluminescent immunoassay using Right Hemisphere Alinity i. Performed By: #### 1 1253-2 ####[facility] LABIA [id number] [place] [address] [place] ALLIED HEALTHon 02-20-2025 ALLIED HEALTH Normal [facility] BRIEF OP NOTon 01-21-2025 BRIEF OP NOT Normal [facility] CASE MANAGEMon 01-21-2025 CASE MANAGEM Normal [facility] CBC panel Auto (Bld)on 01-21 Erythrocyte distribution width (RBC) [Ratio] 14.0 % Normal 11.5-15.0 [facility] Comment on above: Order Comment: Speci men Type: BLOOD SPECIMENOrdering Facility: [facility] Address: [address] [place] [address] Performed By: #### 5 8410-2 ####[facility] LABCLIA [id number] [place] [address] [place] Hematocrit (Bld) [Volume fraction] 24.4 % Low 36.0-46.0 [facility] Comment on above: Order Comment: Speci men Type: BLOOD SPECIMENOrdering Facility: [facility] Address: [address] [place] [address] Performed By: #### 5 8410-2 ####[facility] LABCLIA [id number] [place] [address] [place] Hemoglobin (Bld) [Mass/Vol] 7.8 g/dL Low 11.5-15.5 [facility] Comment on above: Order Comment: Speci men Type: BLOOD SPECIMENOrdering Facility: [facility] Address: [address] [place] [address] Performed By: #### 5 8410-2 ####[facility] LABCLIA [id number] [place] [address] [place] MCH (RBC) [Entitic mass] 29.3 pg Normal 26.0-34.0 [facility] Comment on above: Order Comment: Speci men Type: BLOOD SPECIMENOrdering Facility: [facility] Address: [address] [place] [address] Performed By: #### 5 8410-2 ####[facility] LABCLIA [id number] [place] [address] [place] MCHC (RBC) [Mass/Vol] 32.0 g/dL Normal 30.5-36.0 [facility] Comment on above: Order Comment: Speci men Type: BLOOD SPECIMENOrdering Facility: [facility] Address: [address] [place] [address] Performed By: #### 5 8410-2 ####[facility] LABIA [id number] [place] [address] [place] MCV (RBC) [Entitic vol] 91.7 fL Normal 80.0-100.0 [facility] Comment on above: Order Comment: Speci men Type: BLOOD SPECIMENOrdering Facility: [facility] Address: [address] [place] [address] Performed By: #### 5 8410-2 ####[facility] [id number] [place] [address] [place] Nucleated RBC (Bld) [#/Vol] 10*3/uL Normal <0.01 [facility] Comment on above: Order Comment: Speci men Type: BLOOD SPECIMENOrdering Facility: [facility] Address: [address] [place] [address] Performed By: #### 5 8410-2 ####[facility] [id number] [place] [address] [place] Platelet mean volume (Bld) [Entitic vol] 10.1 fL Normal 9.0-12.7 [facility] Comment on above: Order Comment: Speci men Type: BLOOD SPECIMENOrdering Facility: [facility] Address: [address] [place] [address] Performed By: #### 5 8410-2 ####[facility] LABIA [id number] [place] [address] [place] Platelets (Bld) [#/Vol] 253 10*3/uL Normal 150-400 [facility] Comment on above: Order Comment: Speci men Type: BLOOD SPECIMENOrdering Facility: [facility] Address: [address] [place] [address] Performed By: #### 5 8410-2 ####[facility] LABCLIA [id number] [place] [address] [place] RBC (Bld) [#/Vol] 2.66 10*6/uL Low 3.90-5.20 [facility] Comment on above: Order Comment: Speci men Type: BLOOD SPECIMENOrdering Facility: [facility] Address: [address] [place] [address] Performed By: #### 5 8410-2 ####[facility] LABCLIA [id number] [place] [address] [place] WBC (Bld) [#/Vol] 5.52 10*3/uL Normal 3.70-11.00 [facility] Comment on above: Order Comment: Speci men Type: BLOOD SPECIMENOrdering Facility: [facility] Address: [address] [place] [address] Performed By: #### 5 8410-2 ####[facility] LABCLIA [id number] [place] [address] [place] FUNDUS PHOTOS OU (BOTH EYES) on 01-21-2025 [facility] IR CVP PLACEMENTon IR CVP PLACEMENT Normal [facility] Magnesium SerPl-mCncon 01-21 Magnesium [Mass/Vol] 1.1 mg/dL Low 1.7-2.3 [facility] Comment on above: Order Comment: Speci men Type: BLOOD SPECIMENOrdering Facility: [facility] Address: [address] [place] [address] Performed By: #### 2 4362-6, 65083-5 ####[facility] LABCLIA [id number] [place] [address] [place] PT EDon 01-21-2025 PT ED Normal [facility] Renal function 2000 panelon 01-21-2025 Albumin [Mass/Vol] 2.7 g/dL Low 3.9-4.9 [facility] Comment on above: Order Comment: Speci men Type: BLOOD SPECIMENOrdering Facility: [facility] Address: [address] [place] [address] Performed By: #### 2 4362-6, ####[facility] LABCLIA [id number] [place] [address] [place] Anion gap [Moles/Vol] 14 mmol/L Normal 8-15 [facility] Comment on above: Order Comment: Speci men Type: BLOOD SPECIMENOrdering Facility: [facility] Address: [address] [place] [address] Performed By: #### 2 4362-6, ####[facility] LABCLIA [id number] [place] [address] [place] Calcium [Mass/Vol] 7.1 mg/dL Low 8.5-10.2 [facility] Comment on above: Order Comment: Speci men Type: BLOOD SPECIMENOrdering Facility: [facility] Address: [address] [place] [address] Performed By: #### 2 4362-6, ####[facility] LABCLIA [id number] [facility] [place] [address] [place] Chloride [Moles/Vol] 102 mmol/L Normal 98-107 [facility] Comment on above: Order Comment: Speci men Type: BLOOD SPECIMENOrdering Facility: [facility] Address: [address] [place] [address] Performed By: #### 2 4362-6, ####[facility] LABCLIA [id number] [facility] [place] [id number] [place] CO2 [Moles/Vol] 18 mmol/L Low 22-30 [facility] Comment on above: Order Comment: Speci men Type: BLOOD SPECIMENOrdering Facility: [facility] Address: [address] [place] [address] Performed By: #### 2 4362-6, ####[facility] LABCLIA [id number] [place] [id number] [place] Creatinine [Mass/Vol] 2.34 mg/dL High 0.58-0.96 [facility] Comment on above: Order Comment: Speci men Type: BLOOD SPECIMENOrdering Facility: [facility] Address: [address] [place] [address] Performed By: #### 2 4362-6, ####[facility] LABCLIA [id number] [place] [address] [place] Creatinine and Glomerular filtration rate.predicted panel (S/P/Bld) 21 mL/min/1.73m??? Low >=60 [facility] Comment on above: Order Comment: Speci men Type: BLOOD SPECIMENOrdering Facility: [facility] Address: [address] [place] [address] Result Comment: Kelsey mated Glomerular Filtration Rate [...] actual GFR. Performed By: #### 2 4362-6, ####[facility] LABCLIA [id number] [place] [address] [place] Glucose [Mass/Vol] 135 mg/dL High 74-99 [facility] Comment on above: Order Comment: Speci men Type: BLOOD SPECIMENOrdering Facility: [facility] Address: [address] [place] [address] Result Comment: The [place] Diabetes Association (ADA) provides guidance for cutoff [...] Standards of Medical Care in Diabetes 2016, [place] [employer]. Diabetes Care. 2016.39(Suppl 1). Performed By: #### 2 4362-6, ####[facility] LABCLIA [id number] [place] [address] [place] Phosphate [Mass/Vol] 2.9 mg/dL Normal 2.7-4.8 [facility] Comment on above: Order Comment: Speci men Type: BLOOD SPECIMENOrdering Facility: [facility] Address: [address] [place] [address] Performed By: #### 2 4362-6, ####[facility] LABIA [id number] [place] [id number] [place] Potassium [Moles/Vol] 4.9 mmol/L Normal 3.7-5.1 [facility] Comment on above: Order Comment: Speci men Type: BLOOD SPECIMENOrdering Facility: [facility] Address: [address] [place] [address] Performed By: #### 2 4362-6, ####[facility] LABIA [id number] [place] [id number] [place] Sodium [Moles/Vol] 134 mmol/L Low 136-144 [facility] Comment on above: Order Comment: Speci men Type: BLOOD SPECIMENOrdering Facility: [facility] Address: [address] [place] [address] Performed By: #### 2 4362-6, 27281-3 ####[facility] LABCLIA [id number] [place] [address] [place] Urea nitrogen [Mass/Vol] 61 mg/dL High 7-21 [facility] Comment on above: Order Comment: Speci ronna Type: BLOOD SPECIMENOrdering Facility: [facility] Address: [address] [place] [address] Performed By: #### 2 4362-6, 48311-4 ####[facility] LABIA [id number] [place] [address] [place] Tacrolimus Bld-mCncon 2024 Tacrolimus (Bld) [Mass/Vol] 17.6 ng/mL Normal 5.0-20.0 [facility] Comment on above: Order Comment: Víctor friend Type: BLOOD SPECIMENOrdering Facility: [facility] Address: [address] [place] [address] Result Comment: Ema vidualized target levels for [...] Alinity i. Performed By: #### 1 1253-2 ####[facility] LABIA [id number] [place] [address] [place] C diff Tox gens Stl Ql ULICES+p robeon 01-20-2025 C. difficile toxin genes ULICES+probe Ql (Stl) Positive Abnormal Negative for C. difficile toxin by PCR [facility] Comment on above: Order Comment: Víctor friend Type: STOOL SPECIMENOrdering Facility: [facility] Address: [address] [place] [address] Result Comment: A po sitive PCR result [...] submission. Performed By: #### 5 4067-4, CDEIA ####[facility] LABCLIA [id number] [address] [place] CBC panel Auto (Bld)on 01-20 Erythrocyte distribution width (RBC) [Ratio] 14.1 % Normal 11.5-15.0 [facility] Comment on above: Order Comment: Speci men Type: BLOOD SPECIMENOrdering Facility: [facility] Address: [address] [place] [address] Performed By: #### 5 8410-2 ####[facility] LABIA [id number] [address] [place] Hematocrit (Bld) [Volume fraction] 24.9 % Low 36.0-46.0 [facility] Comment on above: Order Comment: Speci ronna Type: BLOOD SPECIMENOrdering Facility: [facility] Address: [address] [place] [address] Performed By: #### 5 8410-2 ####[facility] LABCLIA [id number] [address] [place] Hemoglobin (Bld) [Mass/Vol] 7.8 g/dL Low 11.5-15.5 [facility] Comment on above: Order Comment: Speci men Type: BLOOD SPECIMENOrdering Facility: [facility] Address: [address] [place] [address] Performed By: #### 5 8410-2 ####[facility] LABCLIA [id number] [address] [place] MCH (RBC) [Entitic mass] 29.7 pg Normal 26.0-34.0 [facility] Comment on above: Order Comment: Speci men Type: BLOOD SPECIMENOrdering Facility: [facility] Address: [address] [place] [address] Performed By: #### 5 8410-2 ####[facility] LABIA [id number] [place] [address] [place] MCHC (RBC) [Mass/Vol] 31.3 g/dL Normal 30.5-36.0 [facility] Comment on above: Order Comment: Speci men Type: BLOOD SPECIMENOrdering Facility: [facility] Address: [address] [place] [address] Performed By: #### 5 8410-2 ####[facility] [id number] [place] [address] [place] MCV (RBC) [Entitic vol] 94.7 fL Normal 80.0-100.0 [facility] Comment on above: Order Comment: Speci men Type: BLOOD SPECIMENOrdering Facility: [facility] Address: [address] [place] [address] Performed By: #### 5 8410-2 ####[facility] [id number] [place] [address] [place] Nucleated RBC (Bld) [#/Vol] 10*3/uL Normal <0.01 [facility] Comment on above: Order Comment: Speci men Type: BLOOD SPECIMENOrdering Facility: [facility] Address: [address] [place] [address] Performed By: #### 5 8410-2 ####[facility] [id number] [place] [address] [place] Platelet mean volume (Bld) [Entitic vol] 10.3 fL Normal 9.0-12.7 [facility] Comment on above: Order Comment: Speci men Type: BLOOD SPECIMENOrdering Facility: [facility] Address: [address] [place] [address] Performed By: #### 5 8410-2 ####[facility] LABCLIA [id number] [place] [address] [place] Platelets (Bld) [#/Vol] 202 10*3/uL Normal 150-400 [facility] Comment on above: Order Comment: Speci men Type: BLOOD SPECIMENOrdering Facility: [facility] Address: [address] [place] [address] Performed By: #### 5 8410-2 ####[facility] LABIA [id number] [place] [address] [place] RBC (Bld) [#/Vol] 2.63 10*6/uL Low 3.90-5.20 [facility] Comment on above: Order Comment: Speci men Type: BLOOD SPECIMENOrdering Facility: [facility] Address: [address] [place] [address] Performed By: #### 5 8410-2 ####[facility] LABIA [id number] [place] [address] [place] WBC (Bld) [#/Vol] 5.11 10*3/uL Normal 3.70-11.00 [facility] Comment on above: Order Comment: Speci men Type: BLOOD SPECIMENOrdering Facility: [facility] Address: [address] [place] [address] Performed By: #### 5 8410-2 ####[facility] LABIA [id number] [place] [address] [place] CLOSTRIDIUM DIFFICILE TOXIN BY EIAon 01-20-2025 C. difficile toxin A+B IA Ql (Stl) Not detected Normal Negative for C. difficile toxin [facility] Comment on above: Order Comment: Speci men Type: STOOL SPECIMENOrdering Facility: [facility] Address: [address] [place] [address] Result Comment: Toxi n EIA is less sensitive than cell cytotoxin and PCR assays. Clinical correlation of PCR positive/toxin EIA negative results is required to distinguish C. difficle colonization from disease. Performed By: #### 5 4067-4, CDLAURA ####[facility] LABCLIA [id number] [place] [address] [place] FUNDUS PHOTOS OU (BOTH EYES) on 01-20-2025 Radiology Study observation (narrative) [facility] Gastrointestinal pathogens p shaina ULICES+probe (Stl)on 01-20-2025 ADENOVIRUS F 40/41 DNA Not detected Normal Not Detected [facility] Comment on above: Order Comment: Speci men Type: STOOL SPECIMENOrdering Facility: [facility] Address: [address] [place] [address] Performed By: #### 7 9381-0 ####[facility] LABCLIA [id number] [place] [address] [place] ASTROVIRUS RNA Not detected Normal Not Detected [facility] Comment on above: Order Comment: Speci men Type: STOOL SPECIMENOrdering Facility: [facility] Address: [address] [place] [address] Performed By: #### 7 9381-0 ####[facility] LABCLIA [id number] [place] [address] [place] C. cayetanensis DNA ULICES+probe Ql (Unsp spec) Not detected Normal Not Detected [facility] Comment on above: Order Comment: Speci men Type: STOOL SPECIMENOrdering Facility: [facility] Address: [address] [place] [address] Performed By: #### 7 9381-0 ####[facility] LABCLIA [id number] [place] [address] [place] Campylobacter sp DNA.diarrheagenic ULICES+probe Ql (Stl) Not detected Normal Not Detected [facility] Comment on above: Order Comment: Speci men Type: STOOL SPECIMENOrdering Facility: [facility] Address: [address] [place] [address] Performed By: #### 7 9381-0 ####[facility] LABCLIA [id number] [place] [address] [place] Cryptosporidium sp DNA ULICES+probe Ql (Unsp spec) Not detected Normal Not Detected [facility] Comment on above: Order Comment: Speci men Type: STOOL SPECIMENOrdering Facility: [facility] Address: [address] [place] [address] Performed By: #### 7 9381-0 ####[facility] LABCLIA [id number] [place] [address] [place] E. coli O157:H7 DNA ULICES+probe Ql (Unsp spec) Not applicable Normal Not detected [facility] Comment on above: Order Comment: Speci men Type: STOOL SPECIMENOrdering Facility: [facility] Address: [address] [place] [address] Performed By: #### 7 9381-0 ####[facility] LABCLIA [id number] [place] [address] [place] E. coli stx1+stx2 genes ULICES+probe Ql (Stl) Not detected Normal Not Detected [facility] Comment on above: Order Comment: Speci men Type: STOOL SPECIMENOrdering Facility: [facility] Address: [address] [place] [address] Performed By: #### 7 9381-0 ####[facility] LABCLIA [id number] [place] [address] [place] E. histolytica DNA ULICES+probe Ql (Unsp spec) Not detected Normal Not Detected [facility] Comment on above: Order Comment: Speci men Type: STOOL SPECIMENOrdering Facility: [facility] Address: [address] [place] [address] Performed By: #### 7 9381-0 ####[facility] LABCLIA [id number] [place] [address] [place] ENTEROAGGREGATIVE E. COLI (EAEC) DNA Not detected Normal Not Detected [facility] Comment on above: Order Comment: Speci men Type: STOOL SPECIMENOrdering Facility: [facility] Address: [address] [place] [address] Performed By: #### 7 9381-0 ####[facility] LABCLIA [id number] [place] [address] [place] ENTEROPATHOGENIC E. COLI (EPEC) DNA Not detected Normal Not detected [facility] Comment on above: Order Comment: Speci men Type: STOOL SPECIMENOrdering Facility: [facility] Address: [address] [place] [address] Performed By: #### 7 9381-0 ####[facility] LABCLIA [id number] [place] [address] [place] ENTEROTOXIGENIC E. COLI (ETEC) DNA Not detected Normal Not Detected [facility] Comment on above: Order Comment: Speci men Type: STOOL SPECIMENOrdering Facility: [facility] Address: [address] [place] [address] Performed By: #### 7 9381-0 ####[facility] LABCLIA [id number] [place] [address] [place] G. lamblia DNA ULICES+probe Ql (Unsp spec) Not detected Normal Not Detected [facility] Comment on above: Order Comment: Speci men Type: STOOL SPECIMENOrdering Facility: [facility] Address: [address] [place] [address] Performed By: #### 7 9381-0 ####[facility] LABCLIA [id number] [place] [address] [place] NOROVIRUS GI/GII RNA Detected Abnormal Not Detected [facility] Comment on above: Order Comment: Speci men Type: STOOL SPECIMENOrdering Facility: [facility] Address: [address] [place] [address] Performed By: #### 7 9381-0 ####[facility] LABCLIA [id number] [place] [address] [place] PLESIOMONAS SHIGELLOIDES DNA Not detected Normal Not Detected [facility] Comment on above: Order Comment: Speci men Type: STOOL SPECIMENOrdering Facility: [facility] Address: [address] [place] [address] Performed By: #### 7 9381-0 ####[facility] LABCLIA [id number] [place] [address] [place] ROTAVIRUS A RNA Not detected Normal Not Detected [facility] Comment on above: Order Comment: Speci men Type: STOOL SPECIMENOrdering Facility: [facility] Address: [address] [place] [address] Performed By: #### 7 9381-0 ####[facility] LABCLIA [id number] [place] [address] [place] Salmonella sp DNA ULICES+probe Ql (Unsp spec) Not detected Normal Not Detected [facility] Comment on above: Order Comment: Speci men Type: STOOL SPECIMENOrdering Facility: [facility] Address: [address] [place] [address] Performed By: #### 7 9381-0 ####[facility] LABCLIA [id number] [place] [address] [place] SAPOVIRUS (GENOGROUPS I, II, IV, V) RNA Not detected Normal Not Detected [facility] Comment on above: Order Comment: Speci men Type: STOOL SPECIMENOrdering Facility: [facility] Address: [address] [place] [address] Performed By: #### 7 9381-0 ####[facility] LABCLIA [id number] [place] [address] [place] Shigella species+EIEC invasion plasmid antigen H ipaH gene ULICES+probe Ql (Stl) Not detected Normal Not Detected [facility] Comment on above: Order Comment: Speci men Type: STOOL SPECIMENOrdering Facility: [facility] Address: [address] [place] [address] Performed By: #### 7 9381-0 ####[facility] LABCLIA [id number] [place] [address] [place] V. cholerae DNA ULICES+probe Ql (Unsp spec) Not detected Normal Not Detected [facility] Comment on above: Order Comment: Speci men Type: STOOL SPECIMENOrdering Facility: [facility] Address: [address] [place] [address] Performed By: #### 7 9381-0 ####[facility] LABCLIA [id number] [place] [address] [place] Vibrio sp DNA ULICES+probe Nom (Unsp spec) Not detected Normal Not Detected [facility] Comment on above: Order Comment: Speci men Type: STOOL SPECIMENOrdering Facility: [facility] Address: [address] [place] [address] Performed By: #### 7 9381-0 ####[facility] LABCLIA [id number] [place] [address] [place] Yersinia sp DNA ULICES+probe Nom (Unsp spec) Not detected Normal Not Detected [facility] Comment on above: Order Comment: Speci men Type: STOOL SPECIMENOrdering Facility: [facility] Address: [address] [place] [address] Performed By: #### 7 9381-0 ####[facility] LABCLIA [id number] [place] [address] [place] Magnesium SerPl-mCncon 01-20 Magnesium [Mass/Vol] 1.2 mg/dL Low 1.7-2.3 [facility] Comment on above: Order Comment: Speci men Type: BLOOD SPECIMENOrdering Facility: [facility] Address: [address] [place] [address] Performed By: #### 2 4362-, ####[facility] LABCLIA [id number] [address] [address] [place] NUTRITIONon 01-20-2025 NUTRITION Normal [facility] OCT MACULA CIRRUS OU (BOTH E YES)on 01-20-2025 [facility] Radiology Study observation (narrative) [facility] PT EDon 01-20-2025 PT ED Normal [facility] Renal function 2000 panelon 01-20-2025 Albumin [Mass/Vol] 2.6 g/dL Low 3.9-4.9 [facility] Comment on above: Order Comment: Speci men Type: BLOOD SPECIMENOrdering Facility: [facility] Address: [address] [place] [address] Performed By: #### 2 4362-6, ####[facility] LABCLIA [id number] [place] [address] [place] Anion gap [Moles/Vol] 14 mmol/L Normal 8-15 [facility] Comment on above: Order Comment: Speci men Type: BLOOD SPECIMENOrdering Facility: [facility] Address: [address] [place] [address] Performed By: #### 2 4362-6, ####[facility] LABIA [id number] [place] [id number] [place] Calcium [Mass/Vol] 7.2 mg/dL Low 8.5-10.2 [facility] Comment on above: Order Comment: Speci men Type: BLOOD SPECIMENOrdering Facility: [facility] Address: [address] [place] [address] Performed By: #### 2 4362-6, ####[facility] LABCLIA [id number] [place] [id number] [place] Chloride [Moles/Vol] 101 mmol/L Normal 98-107 [facility] Comment on above: Order Comment: Speci men Type: BLOOD SPECIMENOrdering Facility: [facility] Address: [address] [place] [address] Performed By: #### 2 4362-6, ####[facility] LABCLIA [id number] [place] [address] [place] CO2 [Moles/Vol] 17 mmol/L Low 22-30 [facility] Comment on above: Order Comment: Speci men Type: BLOOD SPECIMENOrdering Facility: [facility] Address: [address] [place] [address] Performed By: #### 2 4362-6, ####[facility] LABIA [id number] [place] [address] [place] Creatinine [Mass/Vol] 2.23 mg/dL High 0.58-0.96 [facility] Comment on above: Order Comment: Speci men Type: BLOOD SPECIMENOrdering Facility: [facility] Address: [address] [place] [address] Performed By: #### 2 4362-6, ####[facility] LABIA [id number] [place] [address] [place] Creatinine and Glomerular filtration rate.predicted panel (S/P/Bld) 22 mL/min/1.73m??? Low >=60 [facility] Comment on above: Order Comment: Speci men Type: BLOOD SPECIMENOrdering Facility: [facility] Address: [address] [place] [address] Result Comment: Kelsey mated Glomerular Filtration Rate [...] actual GFR. Performed By: #### 2 4362-6, ####[facility] LABCLIA [id number] [place] [address] [place] Glucose [Mass/Vol] 206 mg/dL High 74-99 [facility] Comment on above: Order Comment: Speci men Type: BLOOD SPECIMENOrdering Facility: [facility] Address: [address] [place] [address] Result Comment: The [place] [employer] (ADA) provides guidance for cutoff [...] Standards of Medical Care in Diabetes 2016, [place] [employer]. Diabetes Care. 2016.39(Suppl 1). Performed By: #### 2 4362-6, ####[facility] LABCLIA [id number] [place] [address] [place] Phosphate [Mass/Vol] 2.6 mg/dL Low 2.7-4.8 [facility] Comment on above: Order Comment: Víctor men Type: BLOOD SPECIMENOrdering Facility: [facility] Address: [address] [place] [address] Performed By: #### 2 4362-6, ####[facility] LABCLIA [id number] [place] [address] [place] Potassium [Moles/Vol] 4.9 mmol/L Normal 3.7-5.1 [facility] Comment on above: Order Comment: Speci men Type: BLOOD SPECIMENOrdering Facility: [facility] Address: [address] [place] [address] Performed By: #### 2 4362-6, ####[facility] LABCLIA [id number] [place] [id number] [place] Sodium [Moles/Vol] 132 mmol/L Low 136-144 [facility] Comment on above: Order Comment: Víctor friend Type: BLOOD SPECIMENOrdering Facility: [facility] Address: [address] [place] [address] Performed By: #### 2 4362-6, 56609-2 ####[facility] LABCLIA [id number] [place] [address] [place] Urea nitrogen [Mass/Vol] 55 mg/dL High 7-21 [facility] Comment on above: Order Comment: Verenai men Type: BLOOD SPECIMENOrdering Facility: [facility] Address: [address] [place] [address] Performed By: #### 2 4362-6, 84411-6 ####[facility] LABIA [id number] [place] [address] [place] Tacrolimus Bld-mCncon 2024 Tacrolimus (Bld) [Mass/Vol] 21.0 ng/mL High 5.0-20.0 [facility] Comment on above: Order Comment: Víctor friend Type: BLOOD SPECIMENOrdering Facility: [facility] Address: [address] [place] [address] Result Comment: Ema vidualized target levels for [...] Alinity i. Performed By: #### 1 1253-2 ####[facility] LABCLIA [id number] [place] [id number] [place] ALLIED HEALTHon 01-19-2025 ALLIED HEALTH Normal [facility] CBC panel Auto (Bld)on 01-19 Erythrocyte distribution width (RBC) [Ratio] 14.1 % Normal 11.5-15.0 [facility] Comment on above: Order Comment: Speci men Type: BLOOD SPECIMENOrdering Facility: [facility] Address: [address] [place] [address] Performed By: #### 5 8410-2 ####[facility] LABCLIA [id number] [place] [address] [place] Hematocrit (Bld) [Volume fraction] 23.8 % Low 36.0-46.0 [facility] Comment on above: Order Comment: Speci men Type: BLOOD SPECIMENOrdering Facility: [facility] Address: [address] [place] [address] Performed By: #### 5 8410-2 ####[facility] LABCLIA [id number] [address] [place] Hemoglobin (Bld) [Mass/Vol] 7.6 g/dL Low 11.5-15.5 [facility] Comment on above: Order Comment: Speci men Type: BLOOD SPECIMENOrdering Facility: [facility] Address: [address] [place] [address] Performed By: #### 5 8410-2 ####[facility] LABIA [id number] [place] [address] [place] MCH (RBC) [Entitic mass] 29.9 pg Normal 26.0-34.0 [facility] Comment on above: Order Comment: Speci men Type: BLOOD SPECIMENOrdering Facility: [facility] Address: [address] [place] [address] Performed By: #### 5 8410-2 ####[facility] LABCLIA [id number] [place] [address] [place] MCHC (RBC) [Mass/Vol] 31.9 g/dL Normal 30.5-36.0 [facility] Comment on above: Order Comment: Speci men Type: BLOOD SPECIMENOrdering Facility: [facility] Address: [address] [place] [address] Performed By: #### 5 8410-2 ####[facility] LABCLIA [id number] [place] [address] [place] MCV (RBC) [Entitic vol] 93.7 fL Normal 80.0-100.0 [facility] Comment on above: Order Comment: Speci men Type: BLOOD SPECIMENOrdering Facility: [facility] Address: [address] [place] [address] Performed By: #### 5 8410-2 ####[facility] LABIA [id number] [place] [address] [place] Nucleated RBC (Bld) [#/Vol] 10*3/uL Normal <0.01 [facility] Comment on above: Order Comment: Speci men Type: BLOOD SPECIMENOrdering Facility: [facility] Address: [address] [place] [address] Performed By: #### 5 8410-2 ####[facility] LABCLIA [id number] [place] [address] [place] Platelet mean volume (Bld) [Entitic vol] 10.4 fL Normal 9.0-12.7 [facility] Comment on above: Order Comment: Speci men Type: BLOOD SPECIMENOrdering Facility: [facility] Address: [address] [place] [address] Performed By: #### 5 8410-2 ####[facility] LABCLIA [id number] [place] [address] [place] Platelets (Bld) [#/Vol] 161 10*3/uL Normal 150-400 [facility] Comment on above: Order Comment: Speci men Type: BLOOD SPECIMENOrdering Facility: [facility] Address: [address] [place] [address] Performed By: #### 5 8410-2 ####[facility] LABIA [id number] [place] [id number] [place] RBC (Bld) [#/Vol] 2.54 10*6/uL Low 3.90-5.20 [facility] Comment on above: Order Comment: Speci men Type: BLOOD SPECIMENOrdering Facility: [facility] Address: [address] [place] [address] Performed By: #### 5 8410-2 ####[facility] [id number] [place] [address] [place] WBC (Bld) [#/Vol] 5.83 10*3/uL Normal 3.70-11.00 [facility] Comment on above: Order Comment: Speci men Type: BLOOD SPECIMENOrdering Facility: [facility] Address: [address] [place] [address] Performed By: #### 5 8410-2 ####[facility] [id number] [place] [address] [place] CONSULT PROGon 01-19-2025 CONSULT PROG Normal [facility] Magnesium SerPl-mCncon 01-19 Magnesium [Mass/Vol] 1.3 mg/dL Low 1.7-2.3 [facility] Comment on above: Order Comment: Speci men Type: BLOOD SPECIMENOrdering Facility: [facility] Address: [address] [place] [address] Performed By: #### 1 9123-9, 29923-2 ####[facility] [id number] [place] [address] [place] PT panel Coag (PPP)on 2024 INR Coag (PPP) [Relative time] 1.2 {INR} Normal 0.9-1.3 [facility] Comment on above: Order Comment: Speci men Type: BLOOD SPECIMENOrdering Facility: [facility] Address: [address] [place] [address] Result Comment: Zulay min K Antagonist (VKA) Therapeutic Range: INR 2 to 3 (Target INR of 2.5)Note: For patients treated with VKA drugs, such as warfarin, the [place] [employer] 2012 Guideline recommends [...] 3).Laura THORPE, et al. Chest 2012, 141:7S-47SAnais RA, et al. [facility] 2017, 70: 252-289 Performed By: #### 3 4528-0 ####[facility] LABIA [id number] [place] [address] [place] PT Coag (PPP) [Time] 13.0 s Normal 9.7-13.0 [facility] Comment on above: Order Comment: Víctor friend Type: BLOOD SPECIMENOrdering Facility: [facility] Address: [address] [place] [address] Performed By: #### 3 4528-0 ####[facility] LABIA [id number] [place] [address] [place] Renal function 2000 panelon 01-19-2025 Albumin [Mass/Vol] 2.5 g/dL Low 3.9-4.9 [facility] Comment on above: Order Comment: Víctor friend Type: BLOOD SPECIMENOrdering Facility: [facility] Address: [address] [place] [address] Performed By: #### 1 9123-9, 72941-6 ####[facility] LABCLIA [id number] [place] [address] [place] Anion gap [Moles/Vol] 11 mmol/L Normal 8-15 [facility] Comment on above: Order Comment: Speci men Type: BLOOD SPECIMENOrdering Facility: [facility] Address: [address] [place] [address] Performed By: #### 1 9123-9, 85338-2 ####[facility] LABCLIA [id number] [place] [address] [place] Calcium [Mass/Vol] 6.9 mg/dL Low 8.5-10.2 [facility] Comment on above: Order Comment: Speci men Type: BLOOD SPECIMENOrdering Facility: [facility] Address: [address] [place] [address] Performed By: #### 1 9123-9, 02929-4 ####[facility] LABCLIA [id number] [place] [address] [place] Chloride [Moles/Vol] 102 mmol/L Normal 98-107 [facility] Comment on above: Order Comment: Speci men Type: BLOOD SPECIMENOrdering Facility: [facility] Address: [address] [place] [address] Performed By: #### 1 9123-9, 08737-2 ####[facility] LABCLIA [id number] [place] [address] [place] CO2 [Moles/Vol] 19 mmol/L Low 22-30 [facility] Comment on above: Order Comment: Speci men Type: BLOOD SPECIMENOrdering Facility: [facility] Address: [address] [place] [address] Performed By: #### 1 9123-9, 37951-6 ####[facility] LABCLIA [id number] [place] [address] [place] Creatinine [Mass/Vol] 2.30 mg/dL High 0.58-0.96 [facility] Comment on above: Order Comment: Speci men Type: BLOOD SPECIMENOrdering Facility: [facility] Address: [address] [place] [address] Performed By: #### 1 9123-9, 65270-1 ####[facility] LABIA [id number] [place] [address] [place] Creatinine and Glomerular filtration rate.predicted panel (S/P/Bld) 21 mL/min/1.73m??? Low >=60 [facility] Comment on above: Order Comment: Speci men Type: BLOOD SPECIMENOrdering Facility: [facility] Address: [address] [place] [address] Result Comment: Kelsey mated Glomerular Filtration Rate [...] actual GFR. Performed By: #### 1 9123-9, 30644-3 ####[facility] LABIA [id number] [place] [address] [place] Glucose [Mass/Vol] 150 mg/dL High 74-99 [facility] Comment on above: Order Comment: Víctor ronna Type: BLOOD SPECIMENOrdering Facility: [facility] Address: [address] [place] [address] Result Comment: The [place] [employer] (ADA) provides guidance for cutoff [...] Standards of Medical Care in Diabetes 2016, [place] [employer]. Diabetes Care. 2016.39(Suppl 1). Performed By: #### 1 9123-9, 68953-8 ####[facility] LABCLIA [id number] [address] [address] [place] Phosphate [Mass/Vol] 3.2 mg/dL Normal 2.7-4.8 [facility] Comment on above: Order Comment: Speci men Type: BLOOD SPECIMENOrdering Facility: [facility] Address: [address] [place] [address] Performed By: #### 1 9123-9, 76325-9 ####[facility] LABCLIA [id number] [place] [address] [place] Potassium [Moles/Vol] 4.7 mmol/L Normal 3.7-5.1 [facility] Comment on above: Order Comment: Speci men Type: BLOOD SPECIMENOrdering Facility: [facility] Address: [address] [place] [address] Performed By: #### 1 9123-9, 77796-0 ####[facility] LABCLIA [id number] [place] [address] [place] Sodium [Moles/Vol] 132 mmol/L Low 136-144 [facility] Comment on above: Order Comment: Speci men Type: BLOOD SPECIMENOrdering Facility: [facility] Address: [address] [place] [address] Performed By: #### 1 9123-9, 22052-6 ####[facility] LABCLIA [id number] [address] [address] [place] Urea nitrogen [Mass/Vol] 56 mg/dL High 7-21 [facility] Comment on above: Order Comment: Speci men Type: BLOOD SPECIMENOrdering Facility: [facility] Address: [address] [place] [address] Performed By: #### 1 9123-9, 02138-8 ####[facility] LABCLIA [id number] [place] [address] [place] Tacrolimus Bld-ncon 2024 Tacrolimus (Bld) [Mass/Vol] 12.0 ng/mL Normal 5.0-20.0 [facility] Comment on above: Order Comment: Víctor friend Type: BLOOD SPECIMENOrdering Facility: [facility] Address: [address] [place] [address] Result Comment: Ema vidualized target levels for [...] situation. Test performed by chemiluminescent immunoassay using Right Hemisphere Alinity i. Performed By: #### 1 1253-2 ####[facility] LABIA [id number] [place] [address] [place] CASE MANAGEMon 01-18-2025 CASE MANAGEM Normal [facility] CASE MANAGEM Normal [facility] CBC panel Auto (Bld)on 01-18 Erythrocyte distribution width (RBC) [Ratio] 14.3 % Normal 11.5-15.0 [facility] Comment on above: Order Comment: Víctor friend Type: BLOOD SPECIMENOrdering Facility: [facility] Address: [address] [place] [address] Performed By: #### 5 8410-2 ####[facility] LABCLIA [id number] [address] [place] Hematocrit (Bld) [Volume fraction] 23.7 % Low 36.0-46.0 [facility] Comment on above: Order Comment: Verenai ronna Type: BLOOD SPECIMENOrdering Facility: [facility] Address: [address] [place] [address] Performed By: #### 5 8410-2 ####[facility] LABCLIA [id number] [place] [address] [place] Hemoglobin (Bld) [Mass/Vol] 7.6 g/dL Low 11.5-15.5 [facility] Comment on above: Order Comment: Speci men Type: BLOOD SPECIMENOrdering Facility: [facility] Address: [address] [place] [address] Performed By: #### 5 8410-2 ####[facility] LABCLIA [id number] [place] [address] [place] MCH (RBC) [Entitic mass] 29.6 pg Normal 26.0-34.0 [facility] Comment on above: Order Comment: Speci men Type: BLOOD SPECIMENOrdering Facility: [facility] Address: [address] [place] [address] Performed By: #### 5 8410-2 ####[facility] LABCLIA [id number] [place] [address] [place] MCHC (RBC) [Mass/Vol] 32.1 g/dL Normal 30.5-36.0 [facility] Comment on above: Order Comment: Speci men Type: BLOOD SPECIMENOrdering Facility: [facility] Address: [address] [place] [address] Performed By: #### 5 8410-2 ####[facility] LABIA [id number] [place] [address] [place] MCV (RBC) [Entitic vol] 92.2 fL Normal 80.0-100.0 [facility] Comment on above: Order Comment: Speci men Type: BLOOD SPECIMENOrdering Facility: [facility] Address: [address] [place] [address] Performed By: #### 5 8410-2 ####[facility] LABCLIA [id number] [place] [address] [place] Nucleated RBC (Bld) [#/Vol] 10*3/uL Normal <0.01 [facility] Comment on above: Order Comment: Speci men Type: BLOOD SPECIMENOrdering Facility: [facility] Address: [address] [place] [address] Performed By: #### 5 8410-2 ####[facility] LABIA [id number] [place] [address] [place] Platelet mean volume (Bld) [Entitic vol] 10.6 fL Normal 9.0-12.7 [facility] Comment on above: Order Comment: Speci men Type: BLOOD SPECIMENOrdering Facility: [facility] Address: [address] [place] [address] Performed By: #### 5 8410-2 ####[facility] LABIA [id number] [place] [address] [place] Platelets (Bld) [#/Vol] 132 10*3/uL Low 150-400 [facility] Comment on above: Order Comment: Speci men Type: BLOOD SPECIMENOrdering Facility: [facility] Address: [address] [place] [address] Performed By: #### 5 8410-2 ####[facility] LABIA [id number] [place] [address] [place] RBC (Bld) [#/Vol] 2.57 10*6/uL Low 3.90-5.20 [facility] Comment on above: Order Comment: Speci men Type: BLOOD SPECIMENOrdering Facility: [facility] Address: [address] [place] [address] Performed By: #### 5 8410-2 ####[facility] LABIA [id number] [place] [address] [place] WBC (Bld) [#/Vol] 7.29 10*3/uL Normal 3.70-11.00 [facility] Comment on above: Order Comment: Speci men Type: BLOOD SPECIMENOrdering Facility: [facility] Address: [address] [place], [place] [address] Performed By: #### 5 8410-2 ####[facility] LABCLIA [id number] [place] [address] [place] CNPNon 01-18-2025 CNPN Normal [facility] CONSULT PROGon 01-18-2025 CONSULT PROG Normal [facility] CYTOMEGALOVIRUS (CMV) DNA, Q UANTITATIVE PCR, PLASMAon 01-18-2025 CMV DNA ULICES+probe [#/Vol] 159 IU/mL High [facility] Comment on above: Order Comment: Speci men Type: BLOOD SPECIMENOrdering Facility: [facility] Address: [address] [place] [address] Performed By: #### C MVQNT ####[facility] LABCLIA [id number] [place] [address] [place] CMV DNA ULICES+probe [Log #/Vol] 2.20 log IU/mL [facility] Comment on above: Order Comment: Speci men Type: BLOOD SPECIMENOrdering Facility: [facility] Address: [address] [place] [address] Performed By: #### C MVQNT ####[facility] LABIA [id number] [place] [address] [place] CMV DNA ULICES+probe Qn (P) Detected Abnormal Not Detected [facility] Comment on above: Order Comment: Speci men Type: BLOOD SPECIMENOrdering Facility: [facility] Address: [address] [place] [address] Performed By: #### C MVQNT ####[facility] LABIA [id number] [place] [address] [place] Magnesium SerPl-mCncon 01-18 Magnesium [Mass/Vol] 1.6 mg/dL Low 1.7-2.3 [facility] Comment on above: Order Comment: Speci men Type: BLOOD SPECIMENOrdering Facility: [facility] Address: [address] [place] [address] Performed By: #### 1 9123-9, 45519-8 ####[facility] [id number] [place] [address] [place] NURSING PROGon 01-18-2025 NURSING PROG Normal [facility] Osmolality Uron 01-18-2025 Osmolality (U) [Osmolality] 300 mosm/kg Normal 50-1200 [facility] Comment on above: Order Comment: Speci men Type: URINE SPECIMENOrdering Facility: [facility] Address: [address] [place] [address] Performed By: #### 2 695-5 ####[facility] [id number] [address] [place] PT panel Coag (PPP)on 2024 INR Coag (PPP) [Relative time] 1.2 {INR} Normal 0.9-1.3 [facility] Comment on above: Order Comment: Speci men Type: BLOOD SPECIMENOrdering Facility: [facility] Address: [address] [place] [address] Result Comment: Zulay min K Antagonist (VKA) Therapeutic Range: INR 2 to 3 (Target INR of 2.5)Note: For patients treated with VKA drugs, such as warfarin, the [employer] 2012 Guideline recommends [...] of 3).Laura THORPE, et al. Chest 2012, 141:7S-47SNishelmer RA, et al. JACC 2017, 70: 252-289 Performed By: #### 3 4528-0 ####[facility] LABCLIA [id number] [address] [address] [place] PT Coag (PPP) [Time] 12.6 s Normal 9.7-13.0 [facility] Comment on above: Order Comment: Speci men Type: BLOOD SPECIMENOrdering Facility: [facility] Address: [address] [place] [address] Performed By: #### 3 4528-0 ####[facility] LABCLIA [id number] [address] [address] [place] Renal function 2000 panelon 01-18-2025 Albumin [Mass/Vol] 2.9 g/dL Low 3.9-4.9 [facility] Comment on above: Order Comment: Speci men Type: BLOOD SPECIMENOrdering Facility: [facility] Address: [address] [place] [address] Performed By: #### 1 9123-9, 70781-1 ####[facility] LABCLIA [id number] [place] [address] [place] Anion gap [Moles/Vol] 13 mmol/L Normal 8-15 [facility] Comment on above: Order Comment: Speci men Type: BLOOD SPECIMENOrdering Facility: [facility] Address: [address] [place] [address] Performed By: #### 1 9123-9, 32821-5 ####[facility] LABCLIA [id number] [place] [id number] [place] Calcium [Mass/Vol] 6.9 mg/dL Low 8.5-10.2 [facility] Comment on above: Order Comment: Speci men Type: BLOOD SPECIMENOrdering Facility: [facility] Address: [address] [place] [address] Performed By: #### 1 9123-9, 87200-8 ####[facility] LABCLIA [id number] [place] [address] [place] Chloride [Moles/Vol] 103 mmol/L Normal 98-107 [facility] Comment on above: Order Comment: Speci men Type: BLOOD SPECIMENOrdering Facility: [facility] Address: [address] [place] [address] Performed By: #### 1 9123-9, 95005-7 ####[facility] LABCLIA [id number] [place] [address] [place] CO2 [Moles/Vol] 15 mmol/L Low 22-30 [facility] Comment on above: Order Comment: Speci men Type: BLOOD SPECIMENOrdering Facility: [facility] Address: [address] [place] [address] Performed By: #### 1 9123-9, 47508-0 ####[facility] LABCLIA [id number] [place] [address] [place] Creatinine [Mass/Vol] 2.50 mg/dL High 0.58-0.96 [facility] Comment on above: Order Comment: Speci men Type: BLOOD SPECIMENOrdering Facility: [facility] Address: [address] [place] [address] Performed By: #### 1 9123-9, 43134-0 ####[facility] LABIA [id number] [address] [place] Creatinine and Glomerular filtration rate.predicted panel (S/P/Bld) 19 mL/min/1.73m??? Low >=60 [facility] Comment on above: Order Comment: Speci men Type: BLOOD SPECIMENOrdering Facility: [facility] Address: [address] [place] [address] Result Comment: Kelsey mated Glomerular Filtration Rate [...] actual GFR. Performed By: #### 1 9123-9, 64081-1 ####[facility] LABIA [id number] [place] [address] [place] Glucose [Mass/Vol] 120 mg/dL High 74-99 [facility] Comment on above: Order Comment: Víctor friend Type: BLOOD SPECIMENOrdering Facility: [facility] Address: [address] [place] [address] Result Comment: The [place] [employer] (ADA) provides guidance for cutoff [...] Standards of Medical Care in Diabetes 2016, [place] [employer]. Diabetes Care. 2016.39(Suppl 1). Performed By: #### 1 9123-9, 77484-2 ####[facility] LABIA [id number] [place] [address] [place] Phosphate [Mass/Vol] 3.0 mg/dL Normal 2.7-4.8 [facility] Comment on above: Order Comment: Víctor friend Type: BLOOD SPECIMENOrdering Facility: [facility] Address: [address] [place] [address] Performed By: #### 1 9123-9, 85595-3 ####[facility] [id number] [place] [address] [place] Potassium [Moles/Vol] 4.9 mmol/L Normal 3.7-5.1 [facility] Comment on above: Order Comment: Víctor friend Type: BLOOD SPECIMENOrdering Facility: [facility] Address: [address] [place] [address] Performed By: #### 1 9123-9, 55446-5 ####[facility] LABIA [id number] [place] [address] [place] Sodium [Moles/Vol] 131 mmol/L Low 136-144 [facility] Comment on above: Order Comment: Speci men Type: BLOOD SPECIMENOrdering Facility: [facility] Address: [address] [place] [address] Performed By: #### 1 9123-9, 68555-5 ####[facility] LABIA [id number] [place] [address] [place] Urea nitrogen [Mass/Vol] 58 mg/dL High 7-21 [facility] Comment on above: Order Comment: Speci men Type: BLOOD SPECIMENOrdering Facility: [facility] Address: [address] [place] [address] Performed By: #### 1 9123-9, 91873-2 ####[facility] LABIA [id number] [place] [address] [place] Sodium ?Tm Ur-sCncon 025 Sodium Unsp time (U) [Moles/Vol] 90 mmol/L Normal 14-216 [facility] Comment on above: Order Comment: Speci men Type: URINE SPECIMENOrdering Facility: [facility] Address: [address] [place] [address] Performed By: #### 3 5678-2 ####[facility] LABIA [id number] [place] [address] [place] THERAPY NTon 01-18-2025 THERAPY NT Normal [facility] Tacrolimus Bld-mCncon 2024 Tacrolimus (Bld) [Mass/Vol] 15.1 ng/mL Normal 5.0-20.0 [facility] Comment on above: Order Comment: Speci men Type: BLOOD SPECIMENOrdering Facility: [facility] Address: [address] [place] [address] Result Comment: Ema vidualized target levels for [...] situation. Test performed by chemiluminescent immunoassay using Right Hemisphere Alinity i. Performed By: #### 1 1253-2 ####[facility] LABCLIA [id number] [place] [address] [place] CBC panel Auto (Bld)on 01-17 Erythrocyte distribution width (RBC) [Ratio] 14.4 % Normal 11.5-15.0 [facility] Comment on above: Order Comment: Speci men Type: BLOOD SPECIMENOrdering Facility: [facility] Address: [address] [place] [address] Performed By: #### 5 8410-2 ####[facility] LABCLIA [id number] [place] [address] [place] Hematocrit (Bld) [Volume fraction] 27.0 % Low 36.0-46.0 [facility] Comment on above: Order Comment: Verenai ronna Type: BLOOD SPECIMENOrdering Facility: [facility] Address: [address] [place] [address] Performed By: #### 5 8410-2 ####[facility] LABCLIA [id number] [place] [address] [place] Hemoglobin (Bld) [Mass/Vol] 8.5 g/dL Low 11.5-15.5 [facility] Comment on above: Order Comment: Speci men Type: BLOOD SPECIMENOrdering Facility: [facility] Address: [address] [place] [address] Performed By: #### 5 8410-2 ####[facility] LABCLIA [id number] [place] [address] [place] MCH (RBC) [Entitic mass] 29.3 pg Normal 26.0-34.0 [facility] Comment on above: Order Comment: Speci men Type: BLOOD SPECIMENOrdering Facility: [facility] Address: [address] [place] [address] Performed By: #### 5 8410-2 ####[facility] LABIA [id number] [place] [address] [place] MCHC (RBC) [Mass/Vol] 31.5 g/dL Normal 30.5-36.0 [facility] Comment on above: Order Comment: Speci men Type: BLOOD SPECIMENOrdering Facility: [facility] Address: [address] [place] [address] Performed By: #### 5 8410-2 ####[facility] [id number] [place] [address] [place] MCV (RBC) [Entitic vol] 93.1 fL Normal 80.0-100.0 [facility] Comment on above: Order Comment: Speci men Type: BLOOD SPECIMENOrdering Facility: [facility] Address: [address] [place] [address] Performed By: #### 5 8410-2 ####[facility] [id number] [place] [address] [place] Nucleated RBC (Bld) [#/Vol] 10*3/uL Normal <0.01 [facility] Comment on above: Order Comment: Speci men Type: BLOOD SPECIMENOrdering Facility: [facility] Address: [address] [place] [address] Performed By: #### 5 8410-2 ####[facility] [id number] [place] [address] [place] Platelet mean volume (Bld) [Entitic vol] 11.0 fL Normal 9.0-12.7 [facility] Comment on above: Order Comment: Speci men Type: BLOOD SPECIMENOrdering Facility: [facility] Address: [address] [place] [address] Performed By: #### 5 8410-2 ####[facility] LABCLIA [id number] [place] [address] [place] Platelets (Bld) [#/Vol] 125 10*3/uL Low 150-400 [facility] Comment on above: Order Comment: Speci men Type: BLOOD SPECIMENOrdering Facility: [facility] Address: [address] [place] [address] Performed By: #### 5 8410-2 ####[facility] LABCLIA [id number] [place] [address] [place] RBC (Bld) [#/Vol] 2.90 10*6/uL Low 3.90-5.20 [facility] Comment on above: Order Comment: Speci men Type: BLOOD SPECIMENOrdering Facility: [facility] Address: [address] [place] [address] Performed By: #### 5 8410-2 ####[facility] LABIA [id number] [place] [address] [place] WBC (Bld) [#/Vol] 8.76 10*3/uL Normal 3.70-11.00 [facility] Comment on above: Order Comment: Speci men Type: BLOOD SPECIMENOrdering Facility: [facility] Address: [address] [place] [address] Performed By: #### 5 8410-2 ####[facility] LABIA [id number] [place] [address] [place] Magnesium SerPl-mCncon 01-17 Magnesium [Mass/Vol] 2.2 mg/dL Normal 1.7-2.3 [facility] Comment on above: Order Comment: Speci men Type: BLOOD SPECIMENOrdering Facility: [facility] Address: [address] [place] [address] Performed By: #### 1 9123-9, 81000-9 ####[facility] [id number] [place] [address] [place] PT panel Coag (PPP)on 2024 INR Coag (PPP) [Relative time] 1.2 {INR} Normal 0.9-1.3 [facility] Comment on above: Order Comment: Víctor friend Type: BLOOD SPECIMENOrdering Facility: [facility] Address: [address] [place] [address] Result Comment: Zulay min K Antagonist (VKA) Therapeutic Range: INR 2 to 3 (Target INR of 2.5)Note: For patients treated with VKA drugs, such as warfarin, the [employer] 2012 Guideline recommends [...] of 3).Laura GH, et al. Chest 2012, 141:7S-47SNishimjoaquin RA, et al. [facility] 2017, 70: 252-289 Performed By: #### 3 4528-0 ####[facility] [id number] [place] [id number] [place] PT Coag (PPP) [Time] 12.6 s Normal 9.7-13.0 [facility] Comment on above: Order Comment: Víctor friend Type: BLOOD SPECIMENOrdering Facility: [facility] Address: [address] [place] [address] Performed By: #### 3 4528-0 ####[facility] LABCLIA [id number] [facility] [address] [address] [place] Renal function 2000 panelon 01-17-2025 Albumin [Mass/Vol] 2.8 g/dL Low 3.9-4.9 [facility] Comment on above: Order Comment: Speci men Type: BLOOD SPECIMENOrdering Facility: [facility] Address: [address] [place] [address] Performed By: #### 1 9123-9, 72550-6 ####[facility] LABCLIA [id number] [place] [address] [place] Anion gap [Moles/Vol] 11 mmol/L Normal 8-15 [facility] Comment on above: Order Comment: Speci men Type: BLOOD SPECIMENOrdering Facility: [facility] Address: [address] [place] [address] Performed By: #### 1 9123-9, 51392-9 ####[facility] LABIA [id number] [place] [address] [place] Calcium [Mass/Vol] 6.5 mg/dL Low 8.5-10.2 [facility] Comment on above: Order Comment: Speci men Type: BLOOD SPECIMENOrdering Facility: [facility] Address: [address] [place] [address] Performed By: #### 1 9123-9, 63396-9 ####[facility] LABCLIA [id number] [address] [address] [place] Chloride [Moles/Vol] 104 mmol/L Normal 98-107 [facility] Comment on above: Order Comment: Speci men Type: BLOOD SPECIMENOrdering Facility: [facility] Address: [address] [place] [address] Performed By: #### 1 9123-9, 53912-6 ####[facility] LABCLIA [id number] [place] [id number] [place] CO2 [Moles/Vol] 20 mmol/L Low 22-30 [facility] Comment on above: Order Comment: Speci men Type: BLOOD SPECIMENOrdering Facility: [facility] Address: [address] [place] [address] Performed By: #### 1 9123-9, 29584-7 ####[facility] LABCLIA [id number] [place] [address] [place] Creatinine [Mass/Vol] 2.77 mg/dL High 0.58-0.96 [facility] Comment on above: Order Comment: Speci men Type: BLOOD SPECIMENOrdering Facility: [facility] Address: [address] [place] [address] Performed By: #### 1 9123-9, 10821-8 ####[facility] LABCLIA [id number] [address] [place] Creatinine and Glomerular filtration rate.predicted panel (S/P/Bld) 17 mL/min/1.73m??? Low >=60 [facility] Comment on above: Order Comment: Speci men Type: BLOOD SPECIMENOrdering Facility: [facility] Address: [address] [place] [address] Result Comment: Kelsey mated Glomerular Filtration Rate [...] actual GFR. Performed By: #### 1 9123-9, 94876-2 ####[facility] LABCLIA [id number] [place] [address] [place] Glucose [Mass/Vol] 142 mg/dL High 74-99 [facility] Comment on above: Order Comment: Speci men Type: BLOOD SPECIMENOrdering Facility: [facility] Address: [address] [place] [address] Result Comment: The [place] Diabetes [employer] (ADA) provides guidance for cutoff [...] Standards of Medical Care in Diabetes 2016, [place] [employer]. Diabetes Care. 2016.39(Suppl 1). Performed By: #### 1 9123-9, 84434-2 ####[facility] LABIA [id number] [place] [address] [place] Phosphate [Mass/Vol] 2.9 mg/dL Normal 2.7-4.8 [facility] Comment on above: Order Comment: Speci men Type: BLOOD SPECIMENOrdering Facility: [facility] Address: [address] [place] [address] Performed By: #### 1 9123-9, 18008-7 ####[facility] LABIA [id number] [place] [address] [place] Potassium [Moles/Vol] 4.0 mmol/L Normal 3.7-5.1 [facility] Comment on above: Order Comment: Speci men Type: BLOOD SPECIMENOrdering Facility: [facility] Address: [address] [place] [address] Performed By: #### 1 9123-9, 10943-0 ####[facility] LABIA [id number] [place] [address] [place] Sodium [Moles/Vol] 135 mmol/L Low 136-144 [facility] Comment on above: Order Comment: Speci men Type: BLOOD SPECIMENOrdering Facility: [facility] Address: [address] [place] [address] Performed By: #### 1 9123-9, 44610-1 ####[facility] LABIA [id number] [place] [id number] [place] Urea nitrogen [Mass/Vol] 59 mg/dL High 7-21 [facility] Comment on above: Order Comment: Verenai ronna Type: BLOOD SPECIMENOrdering Facility: [facility] Address: [address] [place] [address] Performed By: #### 1 9123-9, 40135-9 ####[facility] LABIA [id number] [address] [place] Tacrolimus Bld-mCncon 2024 Tacrolimus (Bld) [Mass/Vol] 12.8 ng/mL Normal 5.0-20.0 [facility] Comment on above: Order Comment: Víctor friend Type: BLOOD SPECIMENOrdering Facility: [facility] Address: [address] [place] [address] Result Comment: Ema vidualized target levels for [...] Alinity i. Performed By: #### 1 1253-2 ####[facility] LABIA [id number] [place] [id number] [place] CBC panel Auto (Bld)on 01-16 Erythrocyte distribution width (RBC) [Ratio] 14.7 % Normal 11.5-15.0 [facility] Comment on above: Order Comment: Víctor friend Type: BLOOD SPECIMENOrdering Facility: [facility] Address: [address] [place] [address] Performed By: #### 5 8410-2, 38419-2 ####[facility] LABCLIA [id number] [place] [address] [place] Hematocrit (Bld) [Volume fraction] 24.0 % Low 36.0-46.0 [facility] Comment on above: Order Comment: Speci men Type: BLOOD SPECIMENOrdering Facility: [facility] Address: [address] [place] [address] Performed By: #### 5 8410-2, 56835-7 ####[facility] LABCLIA [id number] [place] [address] [place] Hemoglobin (Bld) [Mass/Vol] 7.7 g/dL Low 11.5-15.5 [facility] Comment on above: Order Comment: Speci men Type: BLOOD SPECIMENOrdering Facility: [facility] Address: [address] [place] [address] Performed By: #### 5 8410-2, 40304-8 ####[facility] LABIA [id number] [place] [address] [place] MCH (RBC) [Entitic mass] 29.8 pg Normal 26.0-34.0 [facility] Comment on above: Order Comment: Speci men Type: BLOOD SPECIMENOrdering Facility: [facility] Address: [address] [place] [address] Performed By: #### 5 8410-2, 45271-6 ####[facility] LABIA [id number] [place] [address] [place] MCHC (RBC) [Mass/Vol] 32.1 g/dL Normal 30.5-36.0 [facility] Comment on above: Order Comment: Speci men Type: BLOOD SPECIMENOrdering Facility: [facility] Address: [address] [place] [address] Performed By: #### 5 8410-2, 13769-1 ####[facility] LABCLIA [id number] [place] [address] [place] MCV (RBC) [Entitic vol] 93.0 fL Normal 80.0-100.0 [facility] Comment on above: Order Comment: Speci men Type: BLOOD SPECIMENOrdering Facility: [facility] Address: [address] [place] [address] Performed By: #### 5 8410-2, 82558-7 ####[facility] LABCLIA [id number] [place] [address] [place] Nucleated RBC (Bld) [#/Vol] 0.02 10*3/uL High <0.01 [facility] Comment on above: Order Comment: Speci men Type: BLOOD SPECIMENOrdering Facility: [facility] Address: [address] [place] [address] Performed By: #### 5 8410-2, 56480-0 ####[facility] LABIA [id number] [place] [address] [place] Platelet mean volume (Bld) [Entitic vol] 11.6 fL Normal 9.0-12.7 [facility] Comment on above: Order Comment: Speci men Type: BLOOD SPECIMENOrdering Facility: [facility] Address: [address] [place] [address] Performed By: #### 5 8410-2, 25465-6 ####[facility] LABCLIA [id number] [place] [address] [place] Platelets (Bld) [#/Vol] 84 10*3/uL Low 150-400 [facility] Comment on above: Order Comment: Speci men Type: BLOOD SPECIMENOrdering Facility: [facility] Address: [address] [place] [address] Result Comment: No c lot detected. Performed By: #### 5 8410-2, 16329-6 ####[facility] LABCLIA [id number] [place] [address] [place] RBC (Bld) [#/Vol] 2.58 10*6/uL Low 3.90-5.20 [facility] Comment on above: Order Comment: Speci men Type: BLOOD SPECIMENOrdering Facility: [facility] Address: [address] [place] [address] Performed By: #### 5 8410-2, 04341-6 ####[facility] LABCLIA [id number] [place] [address] [place] WBC (Bld) [#/Vol] 9.03 10*3/uL Normal 3.70-11.00 [facility] Comment on above: Order Comment: Speci men Type: BLOOD SPECIMENOrdering Facility: [facility] Address: [address] [place] [address] Performed By: #### 5 8410-2, 27388-0 ####[facility] LABCLIA [id number] [place] [address] [place] Fibrinogen PPP-mCncon 2024 Fibrinogen Coag (PPP) [Mass/Vol] 161 mg/dL Low 200-400 [facility] Comment on above: Order Comment: Speci men Type: BLOOD SPECIMENOrdering Facility: [facility] Address: [address] [place] [address] Performed By: #### 3 4528-0, 3255-7 ####[facility] LABCLIA [id number] [place] [address] [place] Magnesium SerPl-mCncon 01-16 Magnesium [Mass/Vol] 1.5 mg/dL Low 1.7-2.3 [facility] Comment on above: Order Comment: Speci men Type: BLOOD SPECIMENOrdering Facility: [facility] Address: [address] [place] [address] Performed By: #### 2 4362-6, 84556-4 ####[facility] LABCLIA [id number] [place] [address] [place] PT panel Coag (PPP)on 2024 INR Coag (PPP) [Relative time] 1.3 {INR} Normal 0.9-1.3 [facility] Comment on above: Order Comment: Víctor friend Type: BLOOD SPECIMENOrdering Facility: [facility] Address: [address] [place] [address] Result Comment: Zulay min K Antagonist (VKA) Therapeutic Range: INR 2 to 3 (Target INR of 2.5)Note: For patients treated with VKA drugs, such as warfarin, the [place] [employer] 2012 Guideline recommends [...] al. Chest 2012, 141:7S-47SNishimura RA, et al. [facility] 2017, 70: 252-289 Performed By: #### 3 4528-0, 3255-7 ####[facility] LABCLIA [id number] [place] [address] [place] PT Coag (PPP) [Time] 14.0 s High 9.7-13.0 [facility] Comment on above: Order Comment: Víctor friend Type: BLOOD SPECIMENOrdering Facility: [facility] Address: [address] [place] [id number] Performed By: #### 3 4528-0, 3255-7 ####[facility] LABCLIA [id number] [place] [address] [place] Renal function 2000 panelon 01-16-2025 Albumin [Mass/Vol] 2.5 g/dL Low 3.9-4.9 [facility] Comment on above: Order Comment: Speci men Type: BLOOD SPECIMENOrdering Facility: [facility] Address: [address] [place] [address] Performed By: #### 2 4362-6, ####[facility] LABCLIA [id number] [facility] [place] [address] [place] Anion gap [Moles/Vol] 10 mmol/L Normal 8-15 [facility] Comment on above: Order Comment: Speci men Type: BLOOD SPECIMENOrdering Facility: [facility] Address: [address] [place] [address] Performed By: #### 2 4362-6, ####[facility] LABCLIA [id number] [place] [address] [place] Calcium [Mass/Vol] 5.8 mg/dL Low 8.5-10.2 [facility] Comment on above: Order Comment: Speci men Type: BLOOD SPECIMENOrdering Facility: [facility] Address: [address] [place] [address] Performed By: #### 2 4362-6, ####[facility] LABCLIA [id number] [place] [address] [place] Chloride [Moles/Vol] 105 mmol/L Normal 98-107 [facility] Comment on above: Order Comment: Speci men Type: BLOOD SPECIMENOrdering Facility: [facility] Address: [address] [place] [address] Performed By: #### 2 4362-6, ####[facility] LABCLIA [id number] [place] [address] [place] CO2 [Moles/Vol] 19 mmol/L Low 22-30 [facility] Comment on above: Order Comment: Speci men Type: BLOOD SPECIMENOrdering Facility: [facility] Address: [address] [place] [address] Performed By: #### 2 4362-6, ####[facility] LABIA [id number] [place] [id number] [place] Creatinine [Mass/Vol] 2.82 mg/dL High 0.58-0.96 [facility] Comment on above: Order Comment: Víctor friend Type: BLOOD SPECIMENOrdering Facility: [facility] Address: [address] [place] [address] Performed By: #### 2 4362-6, ####[facility] [id number] [place] [address] [place] Creatinine and Glomerular filtration rate.predicted panel (S/P/Bld) 16 mL/min/1.73m??? Low >=60 [facility] Comment on above: Order Comment: Víctor friend Type: BLOOD SPECIMENOrdering Facility: [facility] Address: [address] [place] [address] Result Comment: Kelsey mated Glomerular Filtration Rate [...] actual GFR. Performed By: #### 2 4362-6, ####[facility] LABIA [id number] [place] [id number] [place] Glucose [Mass/Vol] 125 mg/dL High 74-99 [facility] Comment on above: Order Comment: Víctor friend Type: BLOOD SPECIMENOrdering Facility: [facility] Address: [address] [place] [address] Result Comment: The [place] [employer] (ADA) provides guidance for cutoff [...] Standards of Medical Care in Diabetes 2016, [place] [employer]. Diabetes Care. 2016.39(Suppl 1). Performed By: #### 2 436-6, ####[facility] LABCLIA [id number] [address] [address] [place] Phosphate [Mass/Vol] 2.4 mg/dL Low 2.7-4.8 [facility] Comment on above: Order Comment: Speci men Type: BLOOD SPECIMENOrdering Facility: [facility] Address: [address] [place] [address] Performed By: #### 2 43601-07, ####[facility] LABIA [id number] [address] [address] [place] Potassium [Moles/Vol] 4.0 mmol/L Normal 3.7-5.1 [facility] Comment on above: Order Comment: Speci men Type: BLOOD SPECIMENOrdering Facility: [facility] Address: [address] [place] [address] Performed By: #### 2 43601-07, ####[facility] LABIA [id number] [address] [address] [place] Sodium [Moles/Vol] 134 mmol/L Low 136-144 [facility] Comment on above: Order Comment: Speci men Type: BLOOD SPECIMENOrdering Facility: [facility] Address: [address] [place] [id number] Performed By: #### 2 436-6, ####[facility] LABIA [id number] [address] [address] [place] Urea nitrogen [Mass/Vol] 55 mg/dL High 7-21 [facility] Comment on above: Order Comment: Víctor friend Type: BLOOD SPECIMENOrdering Facility: [facility] Address: [address] [place] [address] Performed By: #### 2 4362-6, 51058-4 ####[facility] LABCLIA [id number] [place] [address] [place] Tacrolimus Bld-mCncon 2024 Tacrolimus (Bld) [Mass/Vol] 17.9 ng/mL Normal 5.0-20.0 [facility] Comment on above: Order Comment: Víctor friend Type: BLOOD SPECIMENOrdering Facility: [facility] Address: [address] [place] [address] Result Comment: Ema vidualized target levels for [...] using [employer] Al[employer] i. Performed By: #### 5 8410-2, 25691-2 ####[facility] LABIA [id number] [place] [address] [place] ALLIED HEALTHon 01-15-2025 ALLIED HEALTH Normal [facility] Basic metabolic 2000 panelon 01-15-2025 Anion gap [Moles/Vol] 11 mmol/L Normal 8-15 [facility] Comment on above: Order Comment: Víctor friend Type: BLOOD SPECIMENOrdering Facility: [facility] Address: [address] [place] [address] Performed By: #### 2 4321-2, 2777-1, HSTNT, 94621-6 ####[facility] LABCLIA [id number] [address] [address] [place] Calcium [Mass/Vol] 6.4 mg/dL Low 8.5-10.2 [facility] Comment on above: Order Comment: Speci men Type: BLOOD SPECIMENOrdering Facility: [facility] Address: [address] [place] [address] Performed By: #### 2 4321-2, 2777-1, HSTNT, ####[facility] LABCLIA [id number] [place] [address] [place] Chloride [Moles/Vol] 106 mmol/L Normal 98-107 [facility] Comment on above: Order Comment: Speci men Type: BLOOD SPECIMENOrdering Facility: [facility] Address: [address] [place] [address] Performed By: #### 2 4321-2, 2777-1, HSTNT, ####[facility] LABCLIA [id number] [place] [address] [place] CO2 [Moles/Vol] 20 mmol/L Low 22-30 [facility] Comment on above: Order Comment: Speci men Type: BLOOD SPECIMENOrdering Facility: [facility] Address: [address] [place] [address] Performed By: #### 2 4321-2, 2777-1, HSTNT, ####[facility] LABCLIA [id number] [place] [address] [place] Creatinine [Mass/Vol] 3.22 mg/dL High 0.58-0.96 [facility] Comment on above: Order Comment: Speci men Type: BLOOD SPECIMENOrdering Facility: [facility] Address: [address] [place] [address] Performed By: #### 2 4321-2, 2777-1, HSTNT, ####[facility] LABCLIA [id number] [place] [address] [place] Creatinine and Glomerular filtration rate.predicted panel (S/P/Bld) 14 mL/min/1.73m??? Low >=60 [facility] Comment on above: Order Comment: Víctor friend Type: BLOOD SPECIMENOrdering Facility: [facility] Address: [address] [place] [address] Result Comment: Kelsey mated Glomerular Filtration Rate [...] actual GFR. Performed By: #### 2 4321-2, 2777-1, HSTNT, ####[facility] LABCLIA [id number] [place] [address] [place] Glucose [Mass/Vol] 84 mg/dL Normal 74-99 [facility] Comment on above: Order Comment: Víctor friend Type: BLOOD SPECIMENOrdering Facility: [facility] Address: [address] [place] [address] Result Comment: The [place] [employer] (ADA) provides guidance for cutoff [...] Standards of Medical Care in Diabetes 2016, [place] [employer]. Diabetes Care. 2016.39(Suppl 1). Performed By: #### 2 4321-2, 2777-1, HSTNT, ####[facility] LABCLIA [id number] [place] [id number] [place] Potassium [Moles/Vol] 4.0 mmol/L Normal 3.7-5.1 [facility] Comment on above: Order Comment: Speci men Type: BLOOD SPECIMENOrdering Facility: [facility] Address: [address] [place] [address] Performed By: #### 2 4321-2, 2777-1, HSTNT, 56076-2 ####[facility] LABCLIA [id number] [place] [address] [place] Sodium [Moles/Vol] 137 mmol/L Normal 136-144 [facility] Comment on above: Order Comment: Speci men Type: BLOOD SPECIMENOrdering Facility: [facility] Address: [address] [place] [address] Performed By: #### 2 4321-2, 2777-1, HSTNT, ####[facility] LABCLIA [id number] [place] [address] [place] Urea nitrogen [Mass/Vol] 64 mg/dL High 7-21 [facility] Comment on above: Order Comment: Speci men Type: BLOOD SPECIMENOrdering Facility: [facility] Address: [address] [place] [address] Performed By: #### 2 4321-2, 2777-1, HSTNT, ####[facility] LABIA [id number] [place] [address] [place] CASE MANAGEMon 01-15-2025 CASE MANAGEM Normal [facility] CBC panel Auto (Bld)on 01-15 Erythrocyte distribution width (RBC) [Ratio] 14.6 % Normal 11.5-15.0 [facility] Comment on above: Order Comment: Speci men Type: BLOOD SPECIMENOrdering Facility: [facility] Address: [address] [place] [address] Performed By: #### 5 8410-2 ####[facility] LABCLIA [id number] [place] [address] [place] Hematocrit (Bld) [Volume fraction] 25.3 % Low 36.0-46.0 [facility] Comment on above: Order Comment: Speci men Type: BLOOD SPECIMENOrdering Facility: [facility] Address: [address] [place] [address] Performed By: #### 5 8410-2 ####[facility] LABCLIA [id number] [place] [address] [place] Hemoglobin (Bld) [Mass/Vol] 8.2 g/dL Low 11.5-15.5 [facility] Comment on above: Order Comment: Speci men Type: BLOOD SPECIMENOrdering Facility: [facility] Address: [address] [place] [address] Performed By: #### 5 8410-2 ####[facility] LABCLIA [id number] [place] [address] [place] MCH (RBC) [Entitic mass] 29.2 pg Normal 26.0-34.0 [facility] Comment on above: Order Comment: Speci men Type: BLOOD SPECIMENOrdering Facility: [facility] Address: [address] [place] [address] Performed By: #### 5 8410-2 ####[facility] LABIA [id number] [place] [address] [place] MCHC (RBC) [Mass/Vol] 32.4 g/dL Normal 30.5-36.0 [facility] Comment on above: Order Comment: Speci men Type: BLOOD SPECIMENOrdering Facility: [facility] Address: [address] [place] [address] Performed By: #### 5 8410-2 ####[facility] LABCLIA [id number] [place] [address] [place] MCV (RBC) [Entitic vol] 90.0 fL Normal 80.0-100.0 [facility] Comment on above: Order Comment: Speci men Type: BLOOD SPECIMENOrdering Facility: [facility] Address: [address] [place] [address] Performed By: #### 5 8410-2 ####[facility] LABIA [id number] [place] [address] [place] Nucleated RBC (Bld) [#/Vol] 10*3/uL Normal <0.01 [facility] Comment on above: Order Comment: Speci men Type: BLOOD SPECIMENOrdering Facility: [facility] Address: [address] [place] [address] Performed By: #### 5 8410-2 ####[facility] [id number] [place] [address] [place] Platelet mean volume (Bld) [Entitic vol] 11.6 fL Normal 9.0-12.7 [facility] Comment on above: Order Comment: Speci men Type: BLOOD SPECIMENOrdering Facility: [facility] Address: [address] [place] [address] Performed By: #### 5 8410-2 ####[facility] LABIA [id number] [place] [address] [place] Platelets (Bld) [#/Vol] 58 10*3/uL Low 150-400 [facility] Comment on above: Order Comment: Speci men Type: BLOOD SPECIMENOrdering Facility: [facility] Address: [address] [place] [address] Performed By: #### 5 8410-2 ####[facility] LABIA [id number] [place] [address] [place] RBC (Bld) [#/Vol] 2.81 10*6/uL Low 3.90-5.20 [facility] Comment on above: Order Comment: Speci men Type: BLOOD SPECIMENOrdering Facility: [facility] Address: [address] [place] [address] Performed By: #### 5 8410-2 ####[facility] LABCLIA [id number] [place] [address] [place] WBC (Bld) [#/Vol] 11.14 10*3/uL High 3.70-11.00 [facility] Comment on above: Order Comment: Speci men Type: BLOOD SPECIMENOrdering Facility: [facility] Address: [address] [place] [address] Performed By: #### 5 8410-2 ####[facility] LABIA [id number] [place] [address] [place] CONSULTon 01-15-2025 CONSULT Normal [facility] CONSULT Normal [facility] CONSULT Normal [facility] CONSULT PROGon 01-15-2025 CONSULT PROG Normal [facility] CONSULT PROG Normal [facility] HIGH SENSITIVITY TROPONIN To n 01-15-2025 Troponin T.cardiac High sensitivity method [Mass/Vol] 21 ng/L High <12 [facility] Comment on above: Order Comment: Speci men Type: BLOOD SPECIMENOrdering Facility: [facility] Address: [address] [place] [address] Performed By: #### H STNT ####[facility] LABIA [id number] [place] [address] [place] Troponin T.cardiac High sensitivity method [Mass/Vol] 20 ng/L High <12 [facility] Comment on above: Order Comment: Speci men Type: BLOOD SPECIMENOrdering Facility: [facility] Address: [address] [place] [address] Performed By: #### 2 4321-2, 2777-1, HSTNT, 74038-7 ####[facility] LABIA [id number] [place] [address] [place] Magnesium SerPl-mCncon 01-15 Magnesium [Mass/Vol] 1.4 mg/dL Low 1.7-2.3 [facility] Comment on above: Order Comment: Víctor friend Type: BLOOD SPECIMENOrdering Facility: [facility] Address: [address] [place] [address] Performed By: #### 2 4321-2, 2777-1, HSTNT, 02416-2 ####[facility] LABCLIA [id number] [place] [address] [place] PT panel Coag (PPP)on 2024 INR Coag (PPP) [Relative time] 1.3 {INR} Normal 0.9-1.3 [facility] Comment on above: Order Comment: Víctor friend Type: BLOOD SPECIMENOrdering Facility: [facility] Address: [address] [place] [address] Result Comment: Zulay min K Antagonist (VKA) Therapeutic Range: INR 2 to 3 (Target INR of 2.5)Note: For patients treated with VKA drugs, such as warfarin, the [employer] 2012 Guideline recommends [...] 3).Laura THORPE, et al. Chest 2012, 141:7S-47SAnais RA, et al. [facility] 2017, 70: 252-289 Performed By: #### 3 4528-0 ####[facility] LABIA [id number] [place] [address] [place] PT Coag (PPP) [Time] 13.7 s High 9.7-13.0 [facility] Comment on above: Order Comment: Víctor friend Type: BLOOD SPECIMENOrdering Facility: [facility] Address: [address] [place] [address] Performed By: #### 3 4528-0 ####[facility] LABCLIA [id number] [place] [address] [place] Phosphate SerPl-mCncon 01-15 Phosphate [Mass/Vol] 2.7 mg/dL Normal 2.7-4.8 [facility] Comment on above: Order Comment: Speci men Type: BLOOD SPECIMENOrdering Facility: [facility] Address: [address] [place] [address] Performed By: #### 2 4321-2, 2777-1, HSTNT, 30427-9 ####[facility] LABCLIA [id number] [place] [address] [place] THERAPY NTon 01-15-2025 THERAPY NT Normal [facility] TYPE + SCREENon 01-15-2025 ABO O Normal [facility] Comment on above: Order Comment: Speci men Type: BLOOD SPECIMENOrdering Facility: [facility] Address: [address] [place] [address] Performed By: #### T SCR ####[facility] BLOOD BANKCLIA [id number] [place] [address] [place] Rh Nom (Bld) Negative Normal [facility] Comment on above: Order Comment: Speci men Type: BLOOD SPECIMENOrdering Facility: [facility] Address: [address] [place] [address] Performed By: #### T SCR ####[facility] BLOOD BANKCLIA [id number] [place] [address] [place] TYPE AND SCREEN EXPIRATION 01/18/2025 23:59 Normal [facility] Comment on above: Order Comment: Speci men Type: BLOOD SPECIMENOrdering Facility: [facility] Address: [address] [place] [address] Performed By: #### T SCR ####[facility] BLOOD BANKCLIA [id number] [place] [address] [place] Tacrolimus Bld-mCncon 2024 Tacrolimus (Bld) [Mass/Vol] 6.4 ng/mL Normal 5.0-20.0 [facility] Comment on above: Order Comment: Víctor friend Type: BLOOD SPECIMENOrdering Facility: [facility] Address: [address] [place] [address] Result Comment: Ema vidualized target levels for [...] situation. Test performed by chemiluminescent immunoassay using Right Hemisphere Alinity i. Performed By: #### 1 1253-2 ####[facility] LABIA [id number] [place] [address] [place] XR CHEST 1V FRONTAL PORTon 0 01-15-2025 XR CHEST 1V FRONTAL PORT Normal [facility] ANTI PLT FACTOR 4 ABon 01-14 Heparin induced platelet IgG Frederick (S) [Interp] Negative Normal Negative [facility] Comment on above: Order Comment: Víctor friend Type: BLOOD SPECIMENOrdering Facility: [facility] Address: [address] [place] [address] Result Comment: No a nti-platelet factor 4 IgG antibody is detected by RICK assay.Heparin-induced thrombocytopenia (HIT) is unlikely, but should be excluded based on clinical factors. Performed By: #### P LATF4 ####[facility] [id number] [place] [address] [place] Platelet factor 4 Qn (PPP) 0.116 OD Normal <0.400 [facility] Comment on above: Order Comment: Víctor friend Type: BLOOD SPECIMENOrdering Facility: [facility] Address: [address] [place] [address] Result Comment: Not calculated Performed By: #### P LATF4 ####[facility] LABCLIA [id number] [address] [address] [place] Basic metabolic 2000 panelon 01-14-2025 Anion gap [Moles/Vol] 13 mmol/L Normal 8-15 [facility] Comment on above: Order Comment: Speci men Type: BLOOD SPECIMENOrdering Facility: [facility] Address: [address] [place] [address] Performed By: #### 2 777-1, 23745-5, 91274-8, 87633-0 ####[facility] LABCLIA [id number] [place] [address] [place] Calcium [Mass/Vol] 6.0 mg/dL Low 8.5-10.2 [facility] Comment on above: Order Comment: Speci men Type: BLOOD SPECIMENOrdering Facility: [facility] Address: [address] [place] [address] Performed By: #### 2 777-1, 37222-4, 64711-3, 50095-9 ####[facility] LABCLIA [id number] [place] [address] [place] Chloride [Moles/Vol] 108 mmol/L High 98-107 [facility] Comment on above: Order Comment: Speci men Type: BLOOD SPECIMENOrdering Facility: [facility] Address: [address] [place], [place] [address] Performed By: #### 2 777-1, 51021-0, 96444-5, 84811-9 ####[facility] LABCLIA [id number] [place] [id number] [place] CO2 [Moles/Vol] 18 mmol/L Low 22-30 [facility] Comment on above: Order Comment: Speci men Type: BLOOD SPECIMENOrdering Facility: [facility] Address: [address] [place] [address] Performed By: #### 2 777-1, 55457-7, 92254-4, 63786-3 ####[facility] LABIA [id number] [place] [id number] [place] Creatinine [Mass/Vol] 3.31 mg/dL High 0.58-0.96 [facility] Comment on above: Order Comment: Speci men Type: BLOOD SPECIMENOrdering Facility: [facility] Address: [address] [place] [address] Performed By: #### 2 777-1, 37325-0, , 76410-3 ####[facility] [id number] [place] [address] [place] Creatinine and Glomerular filtration rate.predicted panel (S/P/Bld) 14 mL/min/1.73m??? Low >=60 [facility] Comment on above: Order Comment: Speci men Type: BLOOD SPECIMENOrdering Facility: [facility] Address: [address] [place] [address] Result Comment: Kelsey mated Glomerular Filtration Rate [...] actual GFR. Performed By: #### 2 777-1, 82336-1, , 54782-0 ####[facility] LABIA [id number] [address] [address] [place] Glucose [Mass/Vol] 123 mg/dL High 74-99 [facility] Comment on above: Order Comment: Speci men Type: BLOOD SPECIMENOrdering Facility: [facility] Address: [address] [place] [address] Result Comment: The [place] [employer] (ADA) provides guidance for cutoff [...] Standards of Medical Care in Diabetes 2016, [place] [employer]. Diabetes Care. 2016.39(Suppl 1). Performed By: #### 2 777-1, 20740-1, , 75615-0 ####[facility] LABIA [id number] [place] [address] [place] Potassium [Moles/Vol] 3.9 mmol/L Normal 3.7-5.1 [facility] Comment on above: Order Comment: Speci men Type: BLOOD SPECIMENOrdering Facility: [facility] Address: [address] [place] [address] Performed By: #### 2 777-1, 45457-9, , 21940-7 ####[facility] LABIA [id number] [place] [address] [place] Sodium [Moles/Vol] 139 mmol/L Normal 136-144 [facility] Comment on above: Order Comment: Speci men Type: BLOOD SPECIMENOrdering Facility: [facility] Address: [address] [place] [address] Performed By: #### 2 777-1, 49955-4, , 52166-2 ####[facility] LABIA [id number] [place] [address] [place] Urea nitrogen [Mass/Vol] 78 mg/dL High 7-21 [facility] Comment on above: Order Comment: Speci men Type: BLOOD SPECIMENOrdering Facility: [facility] Address: [address] [place] [address] Performed By: #### 2 777-1, 21124-6, 77006-6, 35088-0 ####[facility] LABCLIA [id number] [place] [address] [place] CASE MANAGEMon 01-14-2025 CASE MANAGEM Normal [facility] CBC panel Auto (Bld)on 01-14 Erythrocyte distribution width (RBC) [Ratio] 14.6 % Normal 11.5-15.0 [facility] Comment on above: Order Comment: Speci men Type: BLOOD SPECIMENOrdering Facility: [facility] Address: [address] [place] [address] Performed By: #### 5 8410-2 ####[facility] LABIA [id number] [place] [address] [place] Hematocrit (Bld) [Volume fraction] 25.3 % Low 36.0-46.0 [facility] Comment on above: Order Comment: Speci men Type: BLOOD SPECIMENOrdering Facility: [facility] Address: [address] [place] [address] Performed By: #### 5 8410-2 ####[facility] LABIA [id number] [place] [address] [place] Hemoglobin (Bld) [Mass/Vol] 8.2 g/dL Low 11.5-15.5 [facility] Comment on above: Order Comment: Speci men Type: BLOOD SPECIMENOrdering Facility: [facility] Address: [address] [place] [address] Performed By: #### 5 8410-2 ####[facility] LABIA [id number] [place] [address] [place] MCH (RBC) [Entitic mass] 29.6 pg Normal 26.0-34.0 [facility] Comment on above: Order Comment: Speci men Type: BLOOD SPECIMENOrdering Facility: [facility] Address: [address] [place] [address] Performed By: #### 5 8410-2 ####[facility] LABCLIA [id number] [place] [address] [place] MCHC (RBC) [Mass/Vol] 32.4 g/dL Normal 30.5-36.0 [facility] Comment on above: Order Comment: Speci men Type: BLOOD SPECIMENOrdering Facility: [facility] Address: [address] [place] [address] Performed By: #### 5 8410-2 ####[facility] LABCLIA [id number] [place] [address] [place] MCV (RBC) [Entitic vol] 91.3 fL Normal 80.0-100.0 [facility] Comment on above: Order Comment: Speci men Type: BLOOD SPECIMENOrdering Facility: [facility] Address: [address] [place] [address] Performed By: #### 5 8410-2 ####[facility] LABIA [id number] [place] [address] [place] Nucleated RBC (Bld) [#/Vol] 10*3/uL Normal <0.01 [facility] Comment on above: Order Comment: Speci men Type: BLOOD SPECIMENOrdering Facility: [facility] Address: [address] [place] [address] Performed By: #### 5 8410-2 ####[facility] LABIA [id number] [place] [address] [place] Platelet mean volume (Bld) [Entitic vol] 9.2 fL Normal 9.0-12.7 [facility] Comment on above: Order Comment: Speci men Type: BLOOD SPECIMENOrdering Facility: [facility] Address: [address] [place] [address] Performed By: #### 5 8410-2 ####[facility] LABIA [id number] [place] [address] [place] Platelets (Bld) [#/Vol] 49 10*3/uL Low 150-400 [facility] Comment on above: Order Comment: Speci men Type: BLOOD SPECIMENOrdering Facility: [facility] Address: [address] [place] [address] Performed By: #### 5 8410-2 ####[facility] LABCLIA [id number] [place] [address] [place] RBC (Bld) [#/Vol] 2.77 10*6/uL Low 3.90-5.20 [facility] Comment on above: Order Comment: Speci men Type: BLOOD SPECIMENOrdering Facility: [facility] Address: [address] [place] [address] Performed By: #### 5 8410-2 ####[facility] LABCLIA [id number] [place] [address] [place] WBC (Bld) [#/Vol] 12.87 10*3/uL High 3.70-11.00 [facility] Comment on above: Order Comment: Speci men Type: BLOOD SPECIMENOrdering Facility: [facility] Address: [address] [place] [address] Performed By: #### 5 8410-2 ####[facility] LABCLIA [id number] [place] [address] [place] Erythrocyte distribution width (RBC) [Ratio] 14.6 % Normal 11.5-15.0 [facility] Comment on above: Order Comment: Speci men Type: BLOOD SPECIMENOrdering Facility: [facility] Address: [address] [place] [address] Performed By: #### 5 8410-2, IPFR, 08776-6 ####[facility] LABCLIA [id number] [place] [address] [place] Hematocrit (Bld) [Volume fraction] 25.6 % Low 36.0-46.0 [facility] Comment on above: Order Comment: Speci men Type: BLOOD SPECIMENOrdering Facility: [facility] Address: [address] [place] [address] Performed By: #### 5 8410-2, IPFR, 61494-1 ####[facility] LABCLIA [id number] [place] [address] [place] Hemoglobin (Bld) [Mass/Vol] 8.1 g/dL Low 11.5-15.5 [facility] Comment on above: Order Comment: Speci men Type: BLOOD SPECIMENOrdering Facility: [facility] Address: [address] [place] [address] Performed By: #### 5 8410-2, IPFR, 96815-8 ####[facility] LABIA [id number] [place] [address] [place] MCH (RBC) [Entitic mass] 28.9 pg Normal 26.0-34.0 [facility] Comment on above: Order Comment: Speci men Type: BLOOD SPECIMENOrdering Facility: [facility] Address: [address] [place] [address] Performed By: #### 5 8410-2, IPFR, 30035-7 ####[facility] LABIA [id number] [place] [address] [place] MCHC (RBC) [Mass/Vol] 31.6 g/dL Normal 30.5-36.0 [facility] Comment on above: Order Comment: Speci men Type: BLOOD SPECIMENOrdering Facility: [facility] Address: [address] [place] [address] Performed By: #### 5 8410-2, IPFR, 83344-6 ####[facility] LABIA [id number] [place] [address] [place] MCV (RBC) [Entitic vol] 91.4 fL Normal 80.0-100.0 [facility] Comment on above: Order Comment: Speci men Type: BLOOD SPECIMENOrdering Facility: [facility] Address: [address] [place] [address] Performed By: #### 5 8410-2, IPFR, 10052-2 ####[facility] LABCLIA [id number] [place] [address] [place] Nucleated RBC (Bld) [#/Vol] 10*3/uL Normal <0.01 [facility] Comment on above: Order Comment: Speci men Type: BLOOD SPECIMENOrdering Facility: [facility] Address: [address] [place] [address] Performed By: #### 5 8410-2, IPFR, 03436-9 ####[facility] LABCLIA [id number] [place] [address] [place] Platelet mean volume (Bld) [Entitic vol] 11.0 fL Normal 9.0-12.7 [facility] Comment on above: Order Comment: Speci men Type: BLOOD SPECIMENOrdering Facility: [facility] Address: [address] [place] [address] Performed By: #### 5 8410-2, IPFR, 50524-4 ####[facility] LABCLIA [id number] [place] [address] [place] Platelets (Bld) [#/Vol] 66 10*3/uL Low 150-400 [facility] Comment on above: Order Comment: Speci men Type: BLOOD SPECIMENOrdering Facility: [facility] Address: [address] [place] [address] Performed By: #### 5 8410-2, IPFR, 30743-5 ####[facility] LABCLIA [id number] [place] [address] [place] RBC (Bld) [#/Vol] 2.80 10*6/uL Low 3.90-5.20 [facility] Comment on above: Order Comment: Speci men Type: BLOOD SPECIMENOrdering Facility: [facility] Address: [address] [place] [address] Performed By: #### 5 8410-2, IPFR, 34163-9 ####[facility] LABIA [id number] [place] [address] [place] WBC (Bld) [#/Vol] 14.56 10*3/uL High 3.70-11.00 [facility] Comment on above: Order Comment: Speci men Type: BLOOD SPECIMENOrdering Facility: [facility] Address: [address] [place] [address] Performed By: #### 5 8410-2, IPFR, 04003-4 ####[facility] [id number] [place] [address] [place] CITRATED PLATELET COUNTon CITRATED PLATELET COUNT (WAM) 50 k/uL Low 150-400 [facility] Comment on above: Order Comment: Speci men Type: BLOOD SPECIMENOrdering Facility: [facility] Address: [address] [place] [address] Result Comment: Plat elet count confirmed by manual review of peripheral blood smear. No clot detected. Performed By: #### C ITPLT ####[facility] [id number] [place] [address] [place] CONSULT PROGon 01-14-2025 CONSULT PROG Normal [facility] CONSULT PROG Normal [facility] CONSULT PROG Normal [facility] Calcium.ionized [Moles/Vol]o n 01-14-2025 Calcium.ionized (Bld) [Mass/Vol] 0.94 mmol/L Low 1.08-1.30 [facility] Comment on above: Order Comment: Speci men Type: BLOOD SPECIMENOrdering Facility: [facility] Address: [address] [place] [address] Performed By: #### 1 995-0 ####[facility] LABIA [id number] [place] [address] [place] Calcium.ionized adjusted to pH 7.4 (Bld) [Moles/Vol] 0.93 mmol/L Low 1.08-1.30 [facility] Comment on above: Order Comment: Speci men Type: BLOOD SPECIMENOrdering Facility: [facility] Address: [address] [place] [address] Performed By: #### 1 995-0 ####[facility] LABCLIA [id number] [place] [address] [place] HIGH SENSITIVITY TROPONIN To n 01-14-2025 Troponin T.cardiac High sensitivity method [Mass/Vol] 21 ng/L High <12 [facility] Comment on above: Order Comment: Speci men Type: BLOOD SPECIMENOrdering Facility: [facility] Address: [address] [place] [address] Performed By: #### 4 542-7, HSTNT ####[facility] LABCLIA [id number] [place] [address] [place] Troponin T.cardiac High sensitivity method [Mass/Vol] 20 ng/L High <12 [facility] Comment on above: Order Comment: Speci men Type: BLOOD SPECIMENOrdering Facility: [facility] Address: [address] [place] [address] Performed By: #### H STNT ####[facility] LABIA [id number] [place] [address] [place] Troponin T.cardiac High sensitivity method [Mass/Vol] 21 ng/L High <12 [facility] Comment on above: Order Comment: Speci men Type: BLOOD SPECIMENOrdering Facility: [facility] Address: [address] [place] [address] Performed By: #### H STNT, 4542-7 ####[facility] LABCLIA [id number] [place] [address] [place] Haptoglob SerPl-mCncon 01-14 Haptoglobin [Mass/Vol] 164 mg/dL Normal 31-238 [facility] Comment on above: Order Comment: Speci men Type: BLOOD SPECIMENOrdering Facility: [facility] Address: [address] [place] [address] Performed By: #### 4 542-7, HSTNT ####[facility] LABCLIA [id number] [address] [address] [place] Haptoglobin [Mass/Vol] 132 mg/dL Normal 31-238 [facility] Comment on above: Order Comment: Speci men Type: BLOOD SPECIMENOrdering Facility: [facility] Address: [address] [place] [address] Performed By: #### H STNT, 4542-7 ####[facility] LABCLIA [id number] [place] [address] [place] Hepatic function 2000 panelo n 01-14-2025 Albumin [Mass/Vol] 2.6 g/dL Low 3.9-4.9 [facility] Comment on above: Order Comment: Speci men Type: BLOOD SPECIMENOrdering Facility: [facility] Address: [address] [place] [address] Performed By: #### 2 777-1, 44603-4, 88419-9, 85942-3 ####[facility] LABCLIA [id number] [place] [address] [place] ALP [Catalytic activity/Vol] 167 U/L High 34-123 [facility] Comment on above: Order Comment: Speci men Type: BLOOD SPECIMENOrdering Facility: [facility] Address: [address] [place] [address] Performed By: #### 2 777-1, 88114-5, 86322-1, 42222-3 ####[facility] LABCLIA [id number] [place] [id number] [place] ALT [Catalytic activity/Vol] 22 U/L Normal 7-38 [facility] Comment on above: Order Comment: Speci men Type: BLOOD SPECIMENOrdering Facility: [facility] Address: [address] [place] [address] Performed By: #### 2 777-1, 24104-8, , 19162-5 ####[facility] LABCLIA [id number] [place] [address] [place] AST [Catalytic activity/Vol] 29 U/L Normal 13-35 [facility] Comment on above: Order Comment: Speci men Type: BLOOD SPECIMENOrdering Facility: [facility] Address: [address] [place] [address] Performed By: #### 2 777-1, 15784-1, , 49535-9 ####[facility] LABCLIA [id number] [place] [address] [place] Bilirubin [Mass/Vol] 0.3 mg/dL Normal 0.2-1.3 [facility] Comment on above: Order Comment: Speci men Type: BLOOD SPECIMENOrdering Facility: [facility] Address: [address] [place] [address] Performed By: #### 2 777-1, 68056-4, , 11816-2 ####[facility] LABCLIA [id number] [place] [address] [place] Bilirubin.conjugated [Mass/Vol] 0.2 mg/dL Normal <0.3 [facility] Comment on above: Order Comment: Speci men Type: BLOOD SPECIMENOrdering Facility: [facility] Address: [address] [place] [address] Performed By: #### 2 777-1, 20345-4, , 20727-7 ####[facility] LABCLIA [id number] [place] [id number] [place] Protein [Mass/Vol] 4.2 g/dL Low 6.3-8.0 [facility] Comment on above: Order Comment: Speci men Type: BLOOD SPECIMENOrdering Facility: [facility] Address: [address] [place] [address] Performed By: #### 2 777-1, 05131-5, 62655-1, 05318-8 ####[facility] LABCLIA [id number] [place] [address] [place] IMMATURE PLATELET FRACTIONon 01-14-2025 Platelets reticulated/100 platelets Auto (Bld) 1.7 % Normal 0.9-7.2 [facility] Comment on above: Order Comment: Speci men Type: BLOOD SPECIMENOrdering Facility: [facility] Address: [address] [place] [address] Performed By: #### 5 8410-2, IPFR, 56001-7 ####[facility] LABCLIA [id number] [place] [address] [place] LDH SerPl-cCncon 01-14-2025 LDH [Catalytic activity/Vol] 426 U/L High 135-214 [facility] Comment on above: Order Comment: Speci men Type: BLOOD SPECIMENOrdering Facility: [facility] Address: [address] [place] [address] Result Comment: Hemo lysis present. The origin of the hemolysis, in vitro versus an in vivo hemolytic process, cannot be distinguished via this assay alone. In vitro hemolysis may lead to non-physiological (spurious) elevation in lactate dehydrogenase (LDH) results. Theresult should be interpreted in context of the clinical setting and other test results. Suggest reorder as clinically indicated. Performed By: #### 2 532-0 ####[facility] LABCLIA [id number] [place] [address] [place] MRA BRAIN WO IVCONon 025 MRA BRAIN WO IVCON Normal [facility] MRI BRAIN WO/W IVCONon 01-14 MRI BRAIN WO/W IVCON Normal [facility] Magnesium SerPl-mCncon 01-14 Magnesium [Mass/Vol] 1.6 mg/dL Low 1.7-2.3 [facility] Comment on above: Order Comment: Speci men Type: BLOOD SPECIMENOrdering Facility: [facility] Address: [address] [place] [address] Performed By: #### 2 777-1, 40420-8, 83906-3, 19400-2 ####[facility] LABCLIA [id number] [place] [address] [place] NURSING PROGon 01-14-2025 NURSING PROG Normal [facility] PT panel Coag (PPP)on 2024 INR Coag (PPP) [Relative time] 1.3 {INR} Normal 0.9-1.3 [facility] Comment on above: Order Comment: Speci men Type: BLOOD SPECIMENOrdering Facility: [facility] Address: [address] [place] [address] Result Comment: Zulay min K Antagonist (VKA) Therapeutic Range: INR 2 to 3 (Target INR of 2.5)Note: For patients treated with VKA drugs, such as warfarin, the [employer] 2012 Guideline recommends [...] al. Chest 2012, 141:7S-47SNishimura RA, et al. [facility] 2017, 70: 252-289 Performed By: #### 3 4528-0 ####[facility] LABCLIA [id number] [address] [place] PT Coag (PPP) [Time] 14.3 s High 9.7-13.0 [facility] Comment on above: Order Comment: Speci men Type: BLOOD SPECIMENOrdering Facility: [facility] Address: [address] [place] [address] Performed By: #### 3 4528-0 ####[facility] LABCLIA [id number] [place] [address] [place] Phosphate SerPl-mCncon 01-14 Phosphate [Mass/Vol] 2.7 mg/dL Normal 2.7-4.8 [facility] Comment on above: Order Comment: Speci men Type: BLOOD SPECIMENOrdering Facility: [facility] Address: [address] [place] [address] Performed By: #### 2 777-1, 21298-9, 73799-5, 12578-7 ####[facility] LABCLIA [id number] [place] [address] [place] Retics #on 01-14-2025 Reticulocytes (Bld) [#/Vol] 0.16446 10*3/uL Normal 0.018-0.100 [facility] Comment on above: Order Comment: Speci men Type: BLOOD SPECIMENOrdering Facility: [facility] Address: [address] [place] [address] Performed By: #### 5 8410-2, IPFR, 89867-3 ####[facility] LABCLIA [id number] [place] [address] [place] Reticulocytes (Bld) [#/Vol]o n 01-14-2025 Reticulocytes/100 RBC (Bld) 1.3 % Normal 0.4-2.0 [facility] Comment on above: Order Comment: Speci men Type: BLOOD SPECIMENOrdering Facility: [facility] Address: [address] [place] [address] Performed By: #### 5 8410-2, IPFR, 39919-7 ####[facility] LABCLIA [id number] [place] [id number] [place] Tacrolimus Bld-mCncon 2024 Tacrolimus (Bld) [Mass/Vol] 9.0 ng/mL Normal 5.0-20.0 [facility] Comment on above: Order Comment: Specsherita friend Type: BLOOD SPECIMENOrdering Facility: [facility] Address: [address] [place] [address] Result Comment: Ema vidualized target levels for [...] situation. Test performed by chemiluminescent immunoassay using Right Hemisphere Alinity i. Performed By: #### 1 1253-2 ####[facility] LABIA [id number] [place] [address] [place] XR ABDOMEN 1V SUPINEon 01-14 XR ABDOMEN 1V SUPINE Normal [facility] ANES POSTPROC EVALon 025 ANES POSTPROC EVAL Normal [facility] ANES PRE-OPon 01-13-2025 ANES PRE-OP Normal [facility] CASE MANAGEMon 01-13-2025 CASE MANAGEM Normal [facility] CBC panel Auto (Bld)on 01-13 Erythrocyte distribution width (RBC) [Ratio] 14.7 % Normal 11.5-15.0 [facility] Comment on above: Order Comment: Specsherita men Type: BLOOD SPECIMENOrdering Facility: [facility] Address: [address] [place] [address] Performed By: #### 5 8410-2 ####[facility] LABIA [id number] [place] [address] [place] Hematocrit (Bld) [Volume fraction] 30.2 % Low 36.0-46.0 [facility] Comment on above: Order Comment: Speci men Type: BLOOD SPECIMENOrdering Facility: [facility] Address: [address] [place] [address] Performed By: #### 5 8410-2 ####[facility] LABIA [id number] [place] [address] [place] Hemoglobin (Bld) [Mass/Vol] 9.8 g/dL Low 11.5-15.5 [facility] Comment on above: Order Comment: Speci men Type: BLOOD SPECIMENOrdering Facility: [facility] Address: [address] [place] [address] Performed By: #### 5 8410-2 ####[facility] [id number] [place] [address] [place] MCH (RBC) [Entitic mass] 29.6 pg Normal 26.0-34.0 [facility] Comment on above: Order Comment: Speci men Type: BLOOD SPECIMENOrdering Facility: [facility] Address: [address] [place] [address] Performed By: #### 5 8410-2 ####[facility] [id number] [place] [address] [place] MCHC (RBC) [Mass/Vol] 32.5 g/dL Normal 30.5-36.0 [facility] Comment on above: Order Comment: Speci men Type: BLOOD SPECIMENOrdering Facility: [facility] Address: [address] [place] [address] Performed By: #### 5 8410-2 ####[facility] [id number] [place] [address] [place] MCV (RBC) [Entitic vol] 91.2 fL Normal 80.0-100.0 [facility] Comment on above: Order Comment: Speci men Type: BLOOD SPECIMENOrdering Facility: [facility] Address: [address] [place] [address] Performed By: #### 5 8410-2 ####[facility] LABCLIA [id number] [place] [address] [place] Nucleated RBC (Bld) [#/Vol] 10*3/uL Normal <0.01 [facility] Comment on above: Order Comment: Speci men Type: BLOOD SPECIMENOrdering Facility: [facility] Address: [address] [place] [address] Performed By: #### 5 8410-2 ####[facility] LABIA [id number] [place] [address] [place] Platelet mean volume (Bld) [Entitic vol] 10.8 fL Normal 9.0-12.7 [facility] Comment on above: Order Comment: Speci men Type: BLOOD SPECIMENOrdering Facility: [facility] Address: [address] [place] [address] Performed By: #### 5 8410-2 ####[facility] LABIA [id number] [place] [address] [place] Platelets (Bld) [#/Vol] 75 10*3/uL Low 150-400 [facility] Comment on above: Order Comment: Speci men Type: BLOOD SPECIMENOrdering Facility: [facility] Address: [address] [place] [address] Performed By: #### 5 8410-2 ####[facility] LABIA [id number] [place] [address] [place] RBC (Bld) [#/Vol] 3.31 10*6/uL Low 3.90-5.20 [facility] Comment on above: Order Comment: Speci men Type: BLOOD SPECIMENOrdering Facility: [facility] Address: [address] [place] [address] Performed By: #### 5 8410-2 ####[facility] LABIA [id number] [place] [address] [place] WBC (Bld) [#/Vol] 15.91 10*3/uL High 3.70-11.00 [facility] Comment on above: Order Comment: Speci men Type: BLOOD SPECIMENOrdering Facility: [facility] Address: [address] [place] [address] Performed By: #### 5 8410-2 ####[facility] LABCLIA [id number] [place] [address] [place] Erythrocyte distribution width (RBC) [Ratio] 14.5 % Normal 11.5-15.0 [facility] Comment on above: Order Comment: Speci men Type: BLOOD SPECIMENOrdering Facility: [facility] Address: [address] [place] [address] Performed By: #### 5 8410-2 ####[facility] LABCLIA [id number] [place] [address] [place] Hematocrit (Bld) [Volume fraction] 27.9 % Low 36.0-46.0 [facility] Comment on above: Order Comment: Speci men Type: BLOOD SPECIMENOrdering Facility: [facility] Address: [address] [place] [address] Performed By: #### 5 8410-2 ####[facility] LABCLIA [id number] [place] [address] [place] Hemoglobin (Bld) [Mass/Vol] 9.2 g/dL Low 11.5-15.5 [facility] Comment on above: Order Comment: Speci men Type: BLOOD SPECIMENOrdering Facility: [facility] Address: [address] [place] [address] Performed By: #### 5 8410-2 ####[facility] LABCLIA [id number] [place] [address] [place] MCH (RBC) [Entitic mass] 29.9 pg Normal 26.0-34.0 [facility] Comment on above: Order Comment: Speci men Type: BLOOD SPECIMENOrdering Facility: [facility] Address: [address] [place] [address] Performed By: #### 5 8410-2 ####[facility] LABIA [id number] [place] [address] [place] MCHC (RBC) [Mass/Vol] 33.0 g/dL Normal 30.5-36.0 [facility] Comment on above: Order Comment: Speci men Type: BLOOD SPECIMENOrdering Facility: [facility] Address: [address] [place] [address] Performed By: #### 5 8410-2 ####[facility] [id number] [place] [address] [place] MCV (RBC) [Entitic vol] 90.6 fL Normal 80.0-100.0 [facility] Comment on above: Order Comment: Speci men Type: BLOOD SPECIMENOrdering Facility: [facility] Address: [address] [place] [address] Performed By: #### 5 8410-2 ####[facility] LABIA [id number] [place] [address] [place] Nucleated RBC (Bld) [#/Vol] 10*3/uL Normal <0.01 [facility] Comment on above: Order Comment: Speci men Type: BLOOD SPECIMENOrdering Facility: [facility] Address: [address] [place] [address] Performed By: #### 5 8410-2 ####[facility] LABIA [id number] [place] [address] [place] Platelet mean volume (Bld) [Entitic vol] 10.4 fL Normal 9.0-12.7 [facility] Comment on above: Order Comment: Speci men Type: BLOOD SPECIMENOrdering Facility: [facility] Address: [address] [place] [address] Performed By: #### 5 8410-2 ####[facility] LABCLIA [id number] [place] [address] [place] Platelets (Bld) [#/Vol] 85 10*3/uL Low 150-400 [facility] Comment on above: Order Comment: Speci men Type: BLOOD SPECIMENOrdering Facility: [facility] Address: [address] [place] [address] Result Comment: Resu lts checked and verified.No clot detected. Performed By: #### 5 8410-2 ####[facility] LABIA [id number] [place] [address] [place] RBC (Bld) [#/Vol] 3.08 10*6/uL Low 3.90-5.20 [facility] Comment on above: Order Comment: Speci men Type: BLOOD SPECIMENOrdering Facility: [facility] Address: [address] [place] [address] Performed By: #### 5 8410-2 ####[facility] LABIA [id number] [place] [address] [place] WBC (Bld) [#/Vol] 17.41 10*3/uL High 3.70-11.00 [facility] Comment on above: Order Comment: Speci men Type: BLOOD SPECIMENOrdering Facility: [facility] Address: [address] [place] [address] Performed By: #### 5 8410-2 ####[facility] LABIA [id number] [place] [address] [place] CONSULT PROGon 01-13-2025 CONSULT PROG Normal [facility] CONSULT PROG Normal [facility] CONSULT PROG Normal [facility] Calcium.ionized [Moles/Vol]o n 01-13-2025 Calcium.ionized (Bld) [Mass/Vol] 1.03 mmol/L Low 1.08-1.30 [facility] Comment on above: Order Comment: Speci men Type: BLOOD SPECIMENOrdering Facility: [facility] Address: [address] [place] [address] Performed By: #### 1 995-0 ####[facility] LABCLIA [id number] [place] [address] [place] Calcium.ionized adjusted to pH 7.4 (Bld) [Moles/Vol] 1.01 mmol/L Low 1.08-1.30 [facility] Comment on above: Order Comment: Speci men Type: BLOOD SPECIMENOrdering Facility: [facility] Address: [address] [place] [address] Performed By: #### 1 995-0 ####[facility] LABCLIA [id number] [place] [address] [place] HIGH SENSITIVITY TROPONIN To n 01-13-2025 Troponin T.cardiac High sensitivity method [Mass/Vol] 20 ng/L High <12 [facility] Comment on above: Order Comment: Speci men Type: BLOOD SPECIMENOrdering Facility: [facility] Address: [address] [place] [address] Performed By: #### H STNT ####[facility] LABCLIA [id number] [place] [address] [place] Troponin T.cardiac High sensitivity method [Mass/Vol] 19 ng/L High <12 [facility] Comment on above: Order Comment: Speci men Type: BLOOD SPECIMENOrdering Facility: [facility] Address: [address] [place] [address] Performed By: #### 2 4325-3, HSTNT, 63198-6, 22826-1 ####[facility] LABCLIA [id number] [place] [address] [place] Hep Func 2000 Pnl SerPlon Albumin [Mass/Vol] 2.7 g/dL Low 3.9-4.9 [facility] Comment on above: Order Comment: Speci men Type: BLOOD SPECIMENOrdering Facility: [facility] Address: [address] [place] [address] Performed By: #### 2 4325-3, HSTNT, 23954-4, ####[facility] LABCLIA [id number] [address] [address] [place] Hepatic function 2000 panelo n 01-13-2025 ALP [Catalytic activity/Vol] 174 U/L High 34-123 [facility] Comment on above: Order Comment: Speci men Type: BLOOD SPECIMENOrdering Facility: [facility] Address: [address] [place] [address] Performed By: #### 2 4325-3, HSTNT, , ####[facility] LABCLIA [id number] [place] [address] [place] ALT [Catalytic activity/Vol] 21 U/L Normal 7-38 [facility] Comment on above: Order Comment: Speci men Type: BLOOD SPECIMENOrdering Facility: [facility] Address: [address] [place] [address] Performed By: #### 2 4325-3, HSTNT, 75749-4, ####[facility] LABCLIA [id number] [place] [address] [place] AST [Catalytic activity/Vol] 32 U/L Normal 13-35 [facility] Comment on above: Order Comment: Speci men Type: BLOOD SPECIMENOrdering Facility: [facility] Address: [address] [place] [address] Performed By: #### 2 4325-3, HSTNT, 33168-0, ####[facility] LABCLIA [id number] [address] [address] [place] Bilirubin [Mass/Vol] 0.7 mg/dL Normal 0.2-1.3 [facility] Comment on above: Order Comment: Speci men Type: BLOOD SPECIMENOrdering Facility: [facility] Address: [address] [place] [address] Performed By: #### 2 4325-3, HSTNT, , ####[facility] LABCLIA [id number] [address] [address] [place] Bilirubin.conjugated [Mass/Vol] 0.3 mg/dL High <0.3 [facility] Comment on above: Order Comment: Speci men Type: BLOOD SPECIMENOrdering Facility: [facility] Address: [address] [place] [address] Performed By: #### 2 4325-3, HSTNT, 94619-4, ####[facility] LABIA [id number] [place] [address] [place] Protein [Mass/Vol] 4.5 g/dL Low 6.3-8.0 [facility] Comment on above: Order Comment: Speci men Type: BLOOD SPECIMENOrdering Facility: [facility] Address: [address] [place] [address] Performed By: #### 2 4325-3, HSTNT, , ####[facility] LABIA [id number] [place] [address] [place] IMMUNE FUN ASSY ATPon 2024 ATP LEVEL (IMMFUN) 343 ATP ng/mL Normal [facility] Comment on above: Order Comment: Speci men Type: BLOOD SPECIMENOrdering Facility: [facility] Address: [address] [place] [address] Result Comment: Assa y Range:Low Immune Cell [...] use by the U.[place]. Food and DrugAdministration. Raisa (R) is a registered trademark. Testing Performed At:[facility], [id number] [address], [address] Director: Jose Tate, PhD TIFFANY (ABB)CLIA # [id number] Interpretation: A = Abnormal, H = High, L = Low Performed By: #### I MMFUN ####[facility] LABSCLIA [id number] [place] [address] Magnesium [facility] 01-13 Magnesium [Mass/Vol] 1.8 mg/dL Normal 1.7-2.3 [facility] Comment on above: Order Comment: Speci men Type: BLOOD SPECIMENOrdering Facility: [facility] Address: [address] [place] [address] Performed By: #### 2 4325-3, HSTNT, 87912-9, 31078-4 ####[facility] LABCLIA [id number] [facility] [id number] [place] [address] [place] NURSING PROGon 01-13-2025 NURSING PROG Normal [facility] NUTRITIONon 01-13-2025 NUTRITION Normal [facility] PT panel Coag (PPP)on 2024 INR Coag (PPP) [Relative time] 1.3 {INR} Normal 0.9-1.3 [facility] Comment on above: Order Comment: Speci men Type: BLOOD SPECIMENOrdering Facility: [facility] Address: [address] [place] [address] Result Comment: Zulay min K Antagonist (VKA) Therapeutic Range: INR 2 to 3 (Target INR of 2.5)Note: For patients treated with VKA drugs, such as warfarin, the [employer] 2012 Guideline recommends [...] al. Chest 2012, 141:7S-47SNishimura RA, et al. [facility] 2017, 70: 252-289 Performed By: #### 3 4528-0, 35043-2 ####[facility] [id number] [place] [address] [place] PT Coag (PPP) [Time] 14.3 s High 9.7-13.0 [facility] Comment on above: Order Comment: Speci ronna Type: BLOOD SPECIMENOrdering Facility: [facility] Address: [address] [place] [address] Performed By: #### 3 4528-0, 95458-2 ####[facility] [id number] [place] [address] [place] Pathology biopsy report Frederick (Tiss)on 01-13-2025 ADDENDUM 1: Normal [facility] Comment on above: Order Comment: Speci men Type: TISSUE SPECIMENOrdering Facility: [facility] Address: [address] [place] [address] Result Comment: Give n the background of chronic gastritis a Helicobacter pylori immunostain was performed on block A1 and is negative for Helicobacter pylori organisms.Laboratory Developed Test (LDT) Disclaimer:Performance characteristics of immunohistochemical, immunofluorescent and chromogenic in-situ hybridization tests have been determined by the performing laboratory within [facility]???s [facility] Pathology [facility] Laboratory Medicine Department ([facility], [facility], [facility], [facility], [facility], [facility], or [facility]) in a manner consistent with CLIA requirements. [...] EST Performed By: #### 6 6121-5 ####[facility] LABCLIA [id number] [address] LABCLIA [id number] [address] [place] CASE REPORT Normal [facility] Comment on above: Order Comment: Speci men Type: TISSUE SPECIMENOrdering Facility: [facility] Address: [address] [place] [address] Result Comment: Surg ica Pathology Report Case: [id number] Provider: Zackery Huffman MD Collected: 01/13/2025 12:24 PMOrdering Location: [place] [address] Received: 01/13/2025 05:22 PMPathologist: Jake Pandey MDSpecimens: A) - Stomach, Biopsy, Stomach ulcer biopsy 1 - r/o Ulcer B) - Stomach, Biopsy, Erosion of anterior antrum - r/o ulcer Performed By: #### 6 6121-5 ####[facility] LABCLIA [id number] [address] LABCLIA [id number] [address] FINAL DIAGNOSIS Normal [facility] Comment on above: Order Comment: Speci men Type: TISSUE SPECIMENOrdering Facility: [facility] Address: [address] [place] [address] Result Comment: A. 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 at 1218 EST Performed By: #### 6 6121-5 ####[facility] LABCLIA [id number] [address] LABCLIA [id number] [address] OF [facility] FINAL PERFORMING LAB Normal [facility] Comment on above: Order Comment: Speci men Type: TISSUE SPECIMENOrdering Facility: [facility] Address: [address] [place] [address] Result Comment: Diag nostic interpretation performed at: [facility], [address] [place] [address] CLIA# [id number] Director: Ravi Chacko MD Performed By: #### 6 6121-5 ####[facility] LABCLIA [id number] [address] LABCLIA [id number] [address] GROSS DESCRIPTION Normal [facility] Comment on above: Order Comment: Speci men Type: TISSUE SPECIMENOrdering Facility: [facility] Address: [address] [place] [address] Result Comment: A. S tomach, BiopsyReceived in formalin are multiple pieces of cameron-pink and cameron-red, soft tissue aggregating to 0.7 x 0.4 x 0.2 cm. Totally submitted in one cassette.B. Stomach, BiopsyReceived in formalin are two pieces of cameron, soft tissue aggregating to 0.5 x 0.3 x 0.2 cm. Totally submitted in one cassette.JCDM January 13, 2025 6:19 PMGross examination performed at [facility], [address] [place], [place] [address]e.[place] [address] Performed By: #### 6 6121-5 ####[facility] LABCLIA [id number] [place] [address] [place] [facility]ICAG[facility] [id number] [facility] [address] [address] [place] Renal function 2000 panelon 01-13-2025 Anion gap [Moles/Vol] 14 mmol/L Normal 8-15 [facility] Comment on above: Order Comment: Speci men Type: BLOOD SPECIMENOrdering Facility: [facility] Address: [address] [place], [place] [address] Performed By: #### 2 4325-3, HSTNT, 29767-2, ####[facility] LABCLIA [id number] [place] [address] [place] Calcium [Mass/Vol] 7.0 mg/dL Low 8.5-10.2 [facility] Comment on above: Order Comment: Speci men Type: BLOOD SPECIMENOrdering Facility: [facility] Address: [address] [place] [id number] Performed By: #### 2 4325-3, HSTNT, , ####[facility] LABCLIA [id number] [place] [address] [place] Chloride [Moles/Vol] 107 mmol/L Normal 98-107 [facility] Comment on above: Order Comment: Speci men Type: BLOOD SPECIMENOrdering Facility: [facility] Address: [address] [place] [address] Performed By: #### 2 4325-3, HSTNT, , ####[facility] LABCLIA [id number] [facility] [address] [address] [place] CO2 [Moles/Vol] 18 mmol/L Low 22-30 [facility] Comment on above: Order Comment: Speci men Type: BLOOD SPECIMENOrdering Facility: [facility] Address: [address] [place] [address] Performed By: #### 2 4325-3, HSTNT, , ####[facility] LABCLIA [id number] [address] [address] [place] Creatinine [Mass/Vol] 3.46 mg/dL High 0.58-0.96 [facility] Comment on above: Order Comment: Speci men Type: BLOOD SPECIMENOrdering Facility: [facility] Address: [address] [place] [address] Performed By: #### 2 4325-3, HSTNT, 87399-2, ####[facility] LABCLIA [id number] [place] [address] [place] Creatinine and Glomerular filtration rate.predicted panel (S/P/Bld) 13 mL/min/1.73m??? Low >=60 [facility] Comment on above: Order Comment: Speci men Type: BLOOD SPECIMENOrdering Facility: [facility] Address: [address] [place] [address] Result Comment: Kelsey mated Glomerular Filtration Rate [...] GFR. Performed By: #### 2 4325-3, HSTNT, , ####[facility] LABCLIA [id number] [place] [address] [place] Glucose [Mass/Vol] 91 mg/dL Normal 74-99 [facility] Comment on above: Order Comment: Speci men Type: BLOOD SPECIMENOrdering Facility: [facility] Address: [address] [place] [address] Result Comment: The [place] Diabetes Association (ADA) provides guidance for cutoff [...] Standards of Medical Care in Diabetes 2016, [place] [employer]. Diabetes Care. 2016.39(Suppl 1). Performed By: #### 2 4325-3, HSTNT, , ####[facility] LABCLIA [id number] [place] [address] [place] Phosphate [Mass/Vol] 3.6 mg/dL Normal 2.7-4.8 [facility] Comment on above: Order Comment: Speci men Type: BLOOD SPECIMENOrdering Facility: [facility] Address: [address] [place] [address] Performed By: #### 2 4325-3, HSTNT, , ####[facility] LABIA [id number] [place] [address] [place] Potassium [Moles/Vol] 4.0 mmol/L Normal 3.7-5.1 [facility] Comment on above: Order Comment: Speci men Type: BLOOD SPECIMENOrdering Facility: [facility] Address: [address] [place] [address] Performed By: #### 2 4325-3, HSTNT, , ####[facility] LABCLIA [id number] [address] [address] [place] Sodium [Moles/Vol] 139 mmol/L Normal 136-144 [facility] Comment on above: Order Comment: Speci men Type: BLOOD SPECIMENOrdering Facility: [facility] Address: [address] [place] [address] Performed By: #### 2 4325-3, HSTNT, 58049-5, ####[facility] LABCLIA [id number] [place] [address] [place] Urea nitrogen [Mass/Vol] 84 mg/dL High 7-21 [facility] Comment on above: Order Comment: Speci men Type: BLOOD SPECIMENOrdering Facility: [facility] Address: [address] [place] [address] Performed By: #### 2 4325-3, HSTNT, 01948-2, ####[facility] LABCLIA [id number] [place] [address] [place] THERAPY NTon 01-13-2025 THERAPY NT Normal [facility] THERAPY NT Normal [facility] Tacrolimus Bld-mCncon 2024 Tacrolimus (Bld) [Mass/Vol] 4.1 ng/mL Low 5.0-20.0 [facility] Comment on above: Order Comment: Víctor friend Type: BLOOD SPECIMENOrdering Facility: [facility] Address: [address] [place] [address] Result Comment: Ema vidualized target levels for [...] situation. Test performed by chemiluminescent immunoassay using Right Hemisphere Alinity i. Performed By: #### 1 1253-2 ####[facility] LABCLIA [id number] [place] [id number] [place] Upper GI endoscopyon 025 Upper GI endoscopy Normal [facility] aPTT PPPon 01-13-2025 aPTT Coag (PPP) [Time] 32.8 s High 23.0-32.4 [facility] Comment on above: Order Comment: Speci men Type: BLOOD SPECIMENOrdering Facility: [facility] Address: [address] [place] [address] Performed By: #### 3 4528-0, 90749-6 ####[facility] LABCLIA [id number] [place] [address] [place] 25(OH)D3 SerPl-mCncon 2024 25-hydroxyvitamin D3 [Mass/Vol] 13.6 ng/mL Low 31.0-80.0 [facility] Comment on above: Order Comment: Speci men Type: BLOOD SPECIMENOrdering Facility: [facility] Address: [address] [place] [address] Result Comment: Clas sification of 25 [place] Vitamin D status:Deficiency/Insufficiency: < or = 30 ng/ml.Sufficiency/Optimal Levels: 31-80 ng/mLToxicity: > 100 ng/mL.Test performed by chemiluminescent immunoassay. Performed By: #### 1 989-3 ####[facility] LABIA [id number] [place] [address] [place] Basic metabolic 2000 panelon 01-12-2025 Anion gap [Moles/Vol] 13 mmol/L Normal 8-15 [facility] Comment on above: Order Comment: Speci men Type: BLOOD SPECIMENOrdering Facility: [facility] Address: [address] [place] [address] Performed By: #### 1 9123-9, 51821-3, 10884-8, 2777-1 ####[facility] LABIA [id number] [place] [address] [place] Calcium [Mass/Vol] 6.9 mg/dL Low 8.5-10.2 [facility] Comment on above: Order Comment: Speci men Type: BLOOD SPECIMENOrdering Facility: [facility] Address: [address] [place] [address] Performed By: #### 1 9123-9, 06845-4, 62316-0, 2777-1 ####[facility] LABCLIA [id number] [place] [address] [place] Chloride [Moles/Vol] 107 mmol/L Normal 98-107 [facility] Comment on above: Order Comment: Speci men Type: BLOOD SPECIMENOrdering Facility: [facility] Address: [address] [place] [address] Performed By: #### 1 9123-9, 09962-0, 48889-2, 2777-1 ####[facility] LABCLIA [id number] [place] [address] [place] CO2 [Moles/Vol] 20 mmol/L Low 22-30 [facility] Comment on above: Order Comment: Speci men Type: BLOOD SPECIMENOrdering Facility: [facility] Address: [address] [place] [address] Performed By: #### 1 9123-9, 80799-4, 74155-9, 2777-1 ####[facility] LABCLIA [id number] [place] [address] [place] Creatinine [Mass/Vol] 3.95 mg/dL High 0.58-0.96 [facility] Comment on above: Order Comment: Speci men Type: BLOOD SPECIMENOrdering Facility: [facility] Address: [address] [place] [address] Performed By: #### 1 9123-9, 00472-0, 72118-4, 2777-1 ####[facility] LABCLIA [id number] [place] [address] [place] Creatinine and Glomerular filtration rate.predicted panel (S/P/Bld) 11 mL/min/1.73m??? Low >=60 [facility] Comment on above: Order Comment: Speci men Type: BLOOD SPECIMENOrdering Facility: [facility] Address: [address] [place] [address] Result Comment: Kelsey mated Glomerular Filtration Rate [...] actual GFR. Performed By: #### 1 9123-9, 19789-1, 95251-6, 2777-1 ####[facility] LABIA [id number] [place] [address] [place] Glucose [Mass/Vol] 116 mg/dL High 74-99 [facility] Comment on above: Order Comment: Specsherita men Type: BLOOD SPECIMENOrdering Facility: [facility] Address: [address] [place] [address] Result Comment: The [place] Diabetes Association (ADA) provides guidance for cutoff [...] Standards of Medical Care in Diabetes 2016, [place] Diabetes Association. Diabetes Care. 2016.39(Suppl 1). Performed By: #### 1 9123-9, 33425-3, 27437-4, 2777-1 ####[facility] LABIA [id number] [place] [address] [place] Potassium [Moles/Vol] 3.4 mmol/L Low 3.7-5.1 [facility] Comment on above: Order Comment: Speci men Type: BLOOD SPECIMENOrdering Facility: [facility] Address: [address] [place] [address] Performed By: #### 1 9123-9, 89231-6, 15218-1, 2777-1 ####[facility] LABCLIA [id number] [place] [address] [place] Sodium [Moles/Vol] 140 mmol/L Normal 136-144 [facility] Comment on above: Order Comment: Speci men Type: BLOOD SPECIMENOrdering Facility: [facility] Address: [address] [place] [address] Performed By: #### 1 9123-9, 18958-9, 46929-1, 2777-1 ####[facility] LABCLIA [id number] [place] [address] [place] Urea nitrogen [Mass/Vol] 90 mg/dL High 7-21 [facility] Comment on above: Order Comment: Speci men Type: BLOOD SPECIMENOrdering Facility: [facility] Address: [address] [place] [address] Performed By: #### 1 9123-9, 18558-3, 74346-4, 2777-1 ####[facility] LABCLIA [id number] [place] [address] [place] CASE MANAGEMon 01-12-2025 CASE MANAGEM Normal [facility] CBC panel Auto (Bld)on 01-12 Erythrocyte distribution width (RBC) [Ratio] 14.4 % Normal 11.5-15.0 [facility] Comment on above: Order Comment: Speci men Type: BLOOD SPECIMENOrdering Facility: [facility] Address: [address] [place] [address] Performed By: #### 5 8410-2 ####[facility] LABCLIA [id number] [place] [address] [place] Hematocrit (Bld) [Volume fraction] 18.6 % Low 36.0-46.0 [facility] Comment on above: Order Comment: Speci men Type: BLOOD SPECIMENOrdering Facility: [facility] Address: [address] [place] [address] Performed By: #### 5 8410-2 ####[facility] LABIA [id number] [place] [address] [place] Hemoglobin (Bld) [Mass/Vol] 5.9 g/dL Critically low 11.5-15.5 [facility] Comment on above: Order Comment: Speci men Type: BLOOD SPECIMENOrdering Facility: [facility] Address: [address] [place] [address] Result Comment: No c lot detected. Performed By: #### 5 8410-2 ####[facility] LABIA [id number] [place] [address] [place] MCH (RBC) [Entitic mass] 29.1 pg Normal 26.0-34.0 [facility] Comment on above: Order Comment: Speci men Type: BLOOD SPECIMENOrdering Facility: [facility] Address: [address] [place] [address] Performed By: #### 5 8410-2 ####[facility] LABIA [id number] [place] [address] [place] MCHC (RBC) [Mass/Vol] 31.7 g/dL Normal 30.5-36.0 [facility] Comment on above: Order Comment: Speci men Type: BLOOD SPECIMENOrdering Facility: [facility] Address: [address] [place] [address] Performed By: #### 5 8410-2 ####[facility] LABIA [id number] [place] [address] [place] MCV (RBC) [Entitic vol] 91.6 fL Normal 80.0-100.0 [facility] Comment on above: Order Comment: Speci men Type: BLOOD SPECIMENOrdering Facility: [facility] Address: [address] [place] [address] Performed By: #### 5 8410-2 ####[facility] LABIA [id number] [place] [address] [place] Nucleated RBC (Bld) [#/Vol] 10*3/uL Normal <0.01 [facility] Comment on above: Order Comment: Speci men Type: BLOOD SPECIMENOrdering Facility: [facility] Address: [address] [place] [address] Performed By: #### 5 8410-2 ####[facility] LABIA [id number] [place] [address] [place] Platelet mean volume (Bld) [Entitic vol] 9.9 fL Normal 9.0-12.7 [facility] Comment on above: Order Comment: Speci men Type: BLOOD SPECIMENOrdering Facility: [facility] Address: [address] [place] [address] Performed By: #### 5 8410-2 ####[facility] [id number] [place] [address] [place] Platelets (Bld) [#/Vol] 81 10*3/uL Low 150-400 [facility] Comment on above: Order Comment: Speci men Type: BLOOD SPECIMENOrdering Facility: [facility] Address: [address] [place] [address] Result Comment: No c lot detected. Performed By: #### 5 8410-2 ####[facility] LABIA [id number] [place] [address] [place] RBC (Bld) [#/Vol] 2.03 10*6/uL Low 3.90-5.20 [facility] Comment on above: Order Comment: Speci men Type: BLOOD SPECIMENOrdering Facility: [facility] Address: [address] [place] [address] Performed By: #### 5 8410-2 ####[facility] LABIA [id number] [place] [address] [place] WBC (Bld) [#/Vol] 11.13 10*3/uL High 3.70-11.00 [facility] Comment on above: Order Comment: Speci men Type: BLOOD SPECIMENOrdering Facility: [facility] Address: [address] [place] [address] Performed By: #### 5 8410-2 ####[facility] LABCLIA [id number] [place] [address] [place] CONSULTon 01-12-2025 CONSULT Normal [facility] CONSULT PROGon 01-12-2025 CONSULT PROG Normal [facility] CONSULT PROG Normal [facility] CONSULT PROG Normal [facility] Calcium ?Tm Ur-mCncon 2024 Calcium Unsp time (U) [Mass/Vol] 3.8 mg/dL Normal 0.0-21.0 [facility] Comment on above: Order Comment: Speci men Type: URINE SPECIMENOrdering Facility: [facility] Address: [address] [place] [address] Performed By: #### 3 5674-1, 25818-0, 16033-0 ####[facility] LABIA [id number] [place] [address] [place] Calcium.ionized [Moles/Vol]o n 01-12-2025 Calcium.ionized (Bld) [Mass/Vol] 1.07 mmol/L Low 1.08-1.30 [facility] Comment on above: Order Comment: Speci men Type: BLOOD SPECIMENOrdering Facility: [facility] Address: [address] [place] [address] Performed By: #### 1 995-0 ####[facility] LABCLIA [id number] [place] [address] [place] Calcium.ionized adjusted to pH 7.4 (Bld) [Moles/Vol] 1.04 mmol/L Low 1.08-1.30 [facility] Comment on above: Order Comment: Speci men Type: BLOOD SPECIMENOrdering Facility: [facility] Address: [address] [place] [address] Performed By: #### 1 995-0 ####[facility] LABCLIA [id number] [place] [address] [place] Calcium.ionized (Bld) [Mass/Vol] <0.50 Low 1.08-1.30 [facility] Comment on above: Order Comment: Speci men Type: BLOOD SPECIMENOrdering Facility: [facility] Address: [address] [place] [address] Performed By: #### 1 995-0 ####[facility] LABIA [id number] [place] [address] [place] Calcium.ionized adjusted to pH 7.4 (Bld) [Moles/Vol] Normal [facility] Comment on above: Order Comment: Speci men Type: BLOOD SPECIMENOrdering Facility: [facility] Address: [address] [place] [address] Result Comment: Raysa ured pH is <7.20. Unable to report normalized Calcium. Performed By: #### 1 995-0 ####[facility] LABIA [id number] [place] [address] [place] Creatinine Unsp time (U) [Ma ss/Vol]on 01-12-2025 Creatinine (U) [Mass/Vol] 58.2 mg/dL Normal 20.0-300.0 [facility] Comment on above: Order Comment: Speci men Type: URINE SPECIMENOrdering Facility: [facility] Address: [address] [place] [address] Performed By: #### 3 5674-1, 16467-8, 17948-0 ####[facility] LABIA [id number] [place] [address] [place] ECG COMPLETEon 01-12-2025 ECG COMPLETE Normal [facility] GLUCOSE, BLOOD (POC)on 01-12 Glucose [Mass/Vol] 95 mg/dL 74 - 99 mg/dL [facility] Comment on above: Location:[place] mcelroy, [address] [place] [address] The Accu-Chek Inform II glucose meter has [...] blood gas instrument) in the above situations. [facility] HEART/LUNG REC POST TX DSAon 01-12-2025 ALLOGEN RESULTS TO FOLLOW See Allogen report to follow Normal [facility] Comment on above: Order Comment: Verenai ronna Type: BLOOD SPECIMENOrdering Facility: [facility] Address: [address] [place] [address] Performed By: #### H LPTCX ####[facility]IES[facility] [id number] [place] [address] [place] HIGH SENSITIVITY TROPONIN To n 01-12-2025 Troponin T.cardiac High sensitivity method [Mass/Vol] 17 ng/L High <12 [facility] Comment on above: Order Comment: Verenai ronna Type: BLOOD SPECIMENOrdering Facility: [facility] Address: [address] [place] [address] Performed By: #### H STNT ####[facility] LABCLIA [id number] [place] [address] [place] Troponin T.cardiac High sensitivity method [Mass/Vol] 22 ng/L High <12 [facility] Comment on above: Order Comment: Víctor friend Type: BLOOD SPECIMENOrdering Facility: [facility] Address: [address] [place] [address] Performed By: #### H STNT ####[facility] LABCLIA [id number] [place] [address] [place] HISTOPLASMA AG URINEon 01-12 H. capsulatum Ag (U) [Mass/Vol] <0.2 Normal <0.2 [facility] Comment on above: Order Comment: Speci men Type: URINE SPECIMENOrdering Facility: [facility] Address: [address] [place] [address] Performed By: #### U HISTO ####[facility] LABCLIA [id number] [place] [address] [place] H. capsulatum Ag IA Ql (U) Negative Normal Negative [facility] Comment on above: Order Comment: Speci men Type: URINE SPECIMENOrdering Facility: [facility] Address: [address] [place] [address] Result Comment: Hist oplasma galactomannan antigen, urine test is used as an aid in diagnosing histoplasmosis. A negative result cannot rule out infection. Low positive results may at times be due to cross-reactivity with Blastomyces, Talaromyces marneffei, Paracoccidioides, and some Cyndi species. Clinical radiological, and epidemiological correlation is required. Performed By: #### U HISTO ####[facility] LABCLIA [id number] [place] [address] [place] HSV+VZV DNA ULICES+probe Ql (Un sp spec)on 01-12-2025 HSV 1 DNA ULICES+probe Ql (Unsp spec) Not detected Normal Not Detected [facility] [facility] Comment on above: Order Comment: Speci men Type: SWABOrdering Facility: [facility] Address: [address] [place] [address] Performed By: #### 3 3027-4 ####[facility] LABCLIA [id number] [place] [address] [place] HSV 2 DNA ULICES+probe Ql (Unsp spec) Not detected Normal Not Detected [facility] Comment on above: Order Comment: Speci men Type: SWABOrdering Facility: [facility] Address: [address] [place] [address] Performed By: #### 3 3027-4 ####[facility] LABCLIA [id number] [place] [address] [place] VZV DNA ULICES+probe Ql (Unsp spec) Not detected Normal Not Detected [facility] Comment on above: Order Comment: Speci men Type: SWABOrdering Facility: [facility] Address: [address] [place] [address] Performed By: #### 3 3027-4 ####[facility] LABCLIA [id number] [place] [address] [place] Hepatic function 2000 panelo n 01-12-2025 Albumin [Mass/Vol] 2.5 g/dL Low 3.9-4.9 [facility] Comment on above: Order Comment: Speci men Type: BLOOD SPECIMENOrdering Facility: [facility] Address: [address] [place] [address] Performed By: #### 1 9123-9, 29905-9, 19608-5, 2777-1 ####[facility] LABIA [id number] [place] [address] [place] ALP [Catalytic activity/Vol] 158 U/L High 34-123 [facility] Comment on above: Order Comment: Speci men Type: BLOOD SPECIMENOrdering Facility: [facility] Address: [address] [place] [address] Performed By: #### 1 9123-9, 60706-7, 29851-6, 2777-1 ####[facility] LABIA [id number] [place] [address] [place] ALT [Catalytic activity/Vol] 20 U/L Normal 7-38 [facility] Comment on above: Order Comment: Speci men Type: BLOOD SPECIMENOrdering Facility: [facility] Address: [address] [place] [address] Performed By: #### 1 9123-9, 00547-6, 29800-4, 7-1 ####[facility] LABCLIA [id number] [address] [address] [place] AST [Catalytic activity/Vol] 27 U/L Normal 13-35 [facility] Comment on above: Order Comment: Speci men Type: BLOOD SPECIMENOrdering Facility: [facility] Address: [address] [place] [address] Performed By: #### 1 9123-9, 18201-8, 22033-6, 2776- ####[facility] LABIA [id number] [place] [address] [place] Bilirubin [Mass/Vol] 0.2 mg/dL Normal 0.2-1.3 [facility] Comment on above: Order Comment: Speci men Type: BLOOD SPECIMENOrdering Facility: [facility] Address: [address] [place] [address] Performed By: #### 1 9123-9, 41779-5, 27500-1, 277- ####[facility] LABIA [id number] [place] [address] [place] Bilirubin.conjugated [Mass/Vol] 0.1 mg/dL Normal <0.3 [facility] Comment on above: Order Comment: Speci men Type: BLOOD SPECIMENOrdering Facility: [facility] Address: [address] [place] [address] Performed By: #### 1 9123-9, 95253-0, 83410-6, 277- ####[facility] LABIA [id number] [place] [id number] [place] Protein [Mass/Vol] 4.1 g/dL Low 6.3-8.0 [facility] Comment on above: Order Comment: Speci men Type: BLOOD SPECIMENOrdering Facility: [facility] Address: [address] [place] [address] Performed By: #### 1 9123-9, 42529-7, 04620-8, 2777-1 ####[facility] LABCLIA [id number] [facility] MIRAMARErin [place] [address] [place] IMMUNE FUN ASSY ATPon 2024 ATP LEVEL (IMMFUN) 725 ATP ng/mL Normal [facility] Comment on above: Order Comment: Speci men Type: BLOOD SPECIMENOrdering Facility: [facility] Address: [address] [place] [address] Result Comment: Assa y Range:Low Immune Cell [...] (R) is a registered trademark. Testing Performed At:[facility], [address], [address] Director: Jose Tate, PhD TIFFANY (ABB)CLIA # [id number] Interpretation: A = Abnormal, H = High, L = Low Performed By: #### I MMFUN ####[facility] LABSCLIA [id number] [employer] [facility] [place], [place] [address] IgG SerPl-ncon 01-12-2025 IgG [Mass/Vol] 572 mg/dL Low 700-1600 [facility] Comment on above: Order Comment: Speci men Type: BLOOD SPECIMENOrdering Facility: [facility] Address: [address] [place] [address] Performed By: #### 2 465-3 ####[facility] LABCLIA [id number] [address] [place] [facility] SEND OUT TST 1on 2024 [facility] SCAN TEST RESULTS 1 View results in Scanned Documents link when available Normal [facility] Comment on above: Order Comment: Speci men Type: BLOOD SPECIMENOrdering Facility: [facility] Address: [address] [place] [address] Performed By: #### M ISC1 ####NON-INTERFACED REF LABSCLIA SEE SCANNED RESULTSGRAND LAKE [facility] LABCLIA [id number] [address] [place] REFERRAL LAB 1 (DROP-DOWN) Karius Normal [facility] Comment on above: Order Comment: Speci men Type: BLOOD SPECIMENOrdering Facility: [facility] Address: [address] [place] [address] Performed By: #### M ISC1 ####NON-INTERFACED REF LABSCLIA SEE SCANNED RESULTSGRAND LAKE [facility] LABCLIA [id number] [address] [place] TEST 1 Karius Normal [facility] Comment on above: Order Comment: Speci men Type: BLOOD SPECIMENOrdering Facility: [facility] Address: [address] [place] [address] Performed By: #### M ISC1 ####NON-INTERFACED REF LABSCLIA SEE SCANNED RESULTSGRAND LAKE [facility] LABCLIA [id number] [place] [address] [place] Magnesium SerPl-mCncon 01-12 Magnesium [Mass/Vol] 2.1 mg/dL Normal 1.7-2.3 [facility] Comment on above: Order Comment: Speci men Type: BLOOD SPECIMENOrdering Facility: [facility] Address: [address] [place] [address] Performed By: #### 1 9123-9, 24087-8, 68085-9, 2777-1 ####[facility] LABCLIA [id number] [place] [id number] [place] NUTRITIONon 01-12-2025 NUTRITION Normal [facility] PT panel Coag (PPP)on 2024 INR Coag (PPP) [Relative time] 1.4 {INR} High 0.9-1.3 [facility] Comment on above: Order Comment: Specsherita men Type: BLOOD SPECIMENOrdering Facility: [facility] Address: [address] [place] [address] Result Comment: Zulay min K Antagonist (VKA) Therapeutic Range: INR 2 to 3 (Target INR of 2.5)Note: For patients treated with VKA drugs, such as warfarin, the [employer] 2012 Guideline recommends [...] 3).Laura THORPE, et al. Chest 2012, 141:7S-47SAnais RA, et al. [facility] 2017, 70: 252-289 Performed By: #### 3 4528-0, 56337-4 ####[facility] LABCLIA [id number] [place] [id number] [place] PT Coag (PPP) [Time] 15.0 s High 9.7-13.0 [facility] Comment on above: Order Comment: Víctor friend Type: BLOOD SPECIMENOrdering Facility: [facility] Address: [address] [place] [address] Performed By: #### 3 4528-0, 08806-9 ####[facility] LABCLIA [id number] [place] [id number] [place] PTH-Intact SerPl-ncon - Parathyrin.intact [Mass/Vol] 30 pg/mL Normal 15-65 [facility] Comment on above: Order Comment: Speci men Type: BLOOD SPECIMENOrdering Facility: [facility] Address: [address] [place] [address] Performed By: #### 2 731-8, 79085-8 ####[facility] LABCLIA [id number] [place] [address] [place] Phosphate SerPl-ncon 01-12 Phosphate [Mass/Vol] 3.9 mg/dL Normal 2.7-4.8 [facility] Comment on above: Order Comment: Speci men Type: BLOOD SPECIMENOrdering Facility: [facility] Address: [address] [place] [address] Performed By: #### 1 9123-9, 01817-1, 05011-9, 2777-1 ####[facility] LABCLIA [id number] [place] [address] [place] Sodium ?Tm Ur-sCncon 025 Sodium Unsp time (U) [Moles/Vol] 52 mmol/L Normal 14-216 [facility] Comment on above: Order Comment: Speci men Type: URINE SPECIMENOrdering Facility: [facility] Address: [address] [place] [address] Performed By: #### 3 5674-1, 07854-3, 93253-4 ####[facility] LABCLIA [id number] [place] [id number] [place] THERAPY NTon 01-12-2025 THERAPY NT Normal [facility] THERAPY NT Normal [facility] Tacrolimus Bld-mCncon 2024 Tacrolimus (Bld) [Mass/Vol] 4.6 ng/mL Low 5.0-20.0 [facility] Comment on above: Order Comment: Speci men Type: BLOOD SPECIMENOrdering Facility: [facility] Address: [address] [place] [address] Result Comment: Ema vidualized target levels for [...] situation. Test performed by chemiluminescent immunoassay using Right Hemisphere Alinity i. Performed By: #### 2 731-8, 91082-6 ####[facility] LABCLIA [id number] [place] [address] [place] URINALYSIS, REFLEX MICROSCOP ICon 01-12-2025 Bacteria LM.HPF (Urine sed) [#/Area] Negative Normal Negative [facility] Comment on above: Order Comment: Speci men Type: URINE SPECIMENOrdering Facility: [facility] Address: [address] [place] [address] Performed By: #### L [id number] ####[facility] LABCLIA [id number] [place] [address] [place] Bilirubin Ql (U) Negative Normal Negative [facility] Comment on above: Order Comment: Speci men Type: URINE SPECIMENOrdering Facility: [facility] Address: [address] [place] [address] Performed By: #### L [id number] ####[facility] LABCLIA [id number] [place] [address] [place] Clarity (Unsp spec) Clear Normal Clear [facility] Comment on above: Order Comment: Speci men Type: URINE SPECIMENOrdering Facility: [facility] Address: [address] [place] [address] Performed By: #### L [id number] ####[facility] LABCLIA [id number] [place] [id number] [place] Color (U) Yellow Normal Yellow [facility] Comment on above: Order Comment: Speci men Type: URINE SPECIMENOrdering Facility: [facility] Address: [address] [place] [address] Performed By: #### L [id number] ####[facility] LABCLIA [id number] [place] [address] [place] Epithelial cells LM.HPF (Urine sed) [#/Area] None Seen Normal [facility] Comment on above: Order Comment: Speci men Type: URINE SPECIMENOrdering Facility: [facility] Address: [address] [place] [address] Performed By: #### L [id number] ####[facility] LABCLIA [id number] [place] [address] [place] Glucose Test strip (U) [Mass/Vol] Negative Normal Negative [facility] Comment on above: Order Comment: Speci men Type: URINE SPECIMENOrdering Facility: [facility] Address: [address] [place] [address] Performed By: #### L [id number] ####[facility] LABCLIA [id number] [place] [address] [place] Hemoglobin Ql (U) Negative Normal Negative [facility] Comment on above: Order Comment: Speci men Type: URINE SPECIMENOrdering Facility: [facility] Address: [address] [place] [address] Performed By: #### L [id number] ####[facility] LABCLIA [id number] [place] [address] [place] Hyaline casts (Urine sed) [#/Area] 1-3 /LPF Abnormal 0 /LPF [facility] Comment on above: Order Comment: Speci men Type: URINE SPECIMENOrdering Facility: [facility] Address: [address] [place] [address] Performed By: #### L [id number] ####[facility] LABCLIA [id number] [place] [address] [place] Ketones Ql (U) Negative Normal Negative [facility] Comment on above: Order Comment: Speci men Type: URINE SPECIMENOrdering Facility: [facility] Address: [address] [place] [address] Performed By: #### L [id number] ####[facility] LABCLIA [id number] [place] [address] [place] Leukocyte esterase Test strip Ql (U) Negative Normal Negative [facility] Comment on above: Order Comment: Speci men Type: URINE SPECIMENOrdering Facility: [facility] Address: [address] [place] [address] Performed By: #### L [id number] ####[facility] LABCLIA [id number] [place] [address] [place] Nitrite Ql (U) Negative Normal Negative [facility] Comment on above: Order Comment: Speci men Type: URINE SPECIMENOrdering Facility: [facility] Address: [address] [place] [address] Performed By: #### L [id number] ####[facility] LABCLIA [id number] [place] [address] [place] pH (U) 6.0 [pH] Normal <8.5 [facility] Comment on above: Order Comment: Speci men Type: URINE SPECIMENOrdering Facility: [facility] Address: [address] [place] [address] Performed By: #### L [id number] ####[facility] LABCLIA [id number] [place] [address] [place] Protein (U) [Mass/Vol] 1+ Abnormal Negative [facility] Comment on above: Order Comment: Speci men Type: URINE SPECIMENOrdering Facility: [facility] Address: [address] [place] [address] Performed By: #### L [id number] ####[facility] LABIA [id number] [place] [address] [place] RBC LM.HPF (Urine sed) [#/Area] 0-2 /HPF Normal 0-2 /HPF [facility] Comment on above: Order Comment: Speci men Type: URINE SPECIMENOrdering Facility: [facility] Address: [address] [place] [address] Performed By: #### L [id number] ####[facility] LABIA [id number] [place] [address] [place] Specific gravity (U) [Rel density] 1.014 Normal 1.005-1.030 [facility] Comment on above: Order Comment: Speci men Type: URINE SPECIMENOrdering Facility: [facility] Address: [address] [place] [address] Performed By: #### L [id number] ####[facility] [id number] [place] [address] [place] Urobilinogen Ql (U) 0.2 EU/dL Normal 0.2-1.0 EU/dL [facility] Comment on above: Order Comment: Speci men Type: URINE SPECIMENOrdering Facility: [facility] Address: [address] [place] [address] Performed By: #### L [id number] ####[facility] LABIA [id number] [place] [address] [place] WBC LM.HPF (Urine sed) [#/Area] 0-5 /HPF Normal 0-5 /HPF [facility] Comment on above: Order Comment: Speci men Type: URINE SPECIMENOrdering Facility: [facility] Address: [address] [place] [address] Performed By: #### L [id number] ####[facility] LABIA [id number] [place] [address] [place] aPTT PPPon 01-12-2025 aPTT Coag (PPP) [Time] 35.8 s High 23.0-32.4 [facility] Comment on above: Order Comment: Speci men Type: BLOOD SPECIMENOrdering Facility: [facility] Address: [address] [place] [address] Performed By: #### 3 4528-0, 98978-6 ####[facility] LABCLIA [id number] [facility] [id number] [place] BARTONELLA AB PANELon 2024 [place] IGG AB <1:64 Normal [facility] Comment on above: Order Comment: Speci men Type: BLOOD SPECIMENOrdering Facility: [facility] Address: [address] [place] [address] Result Comment: INTE RPRETIVE INFORMATION: Bartonella thomason [...] was developed and its performance characteristicsdetermined by [employer]. It has not been cleared orapproved by the [place] Food and Drug Administration. This test wasperformed in a CLIA certified laboratory and is intended forclinical purposes. Performed By: #### B ARPCR, WHIPWB, BARTAB ####[facility] LABORATORIESCLIA [id number] [place] [address] [place] IGM AB < 1:16 Normal [facility] Comment on above: Order Comment: Speci men Type: BLOOD SPECIMENOrdering Facility: [facility] Address: [address] [place] [address] Result Comment: INTE RPRETIVE INFORMATION: Bartonella thomason [...] was developed and its performance characteristicsdetermined by [employer]. It has not been cleared orapproved by the [place] Food and Drug Administration. This test wasperformed in a CLIA certified laboratory and is intended forclinical purposes.Performed By: [facility] [place], [place] [address]Veajdjnpbh Director: Jc Fine MD, PhDCLIA Number: [id number] Performed By: #### B ARPCR, WHIPWB, BARTAB ####[facility] CAMPUSIA [id number] [place] [address] BARTONELLA HENSELAE AB, IGG <1:64 Normal [facility] Comment on above: Order Comment: Specsherita ronna Type: BLOOD SPECIMENOrdering Facility: [facility] Address: [address] [place] [address] Result Comment: INTE RPRETIVE INFORMATION: Bartonella henselae [...] was developed and its performance characteristicsdetermined by [employer]. It has not been cleared orapproved by the [place] Food and Drug Administration. This test wasperformed in a CLIA certified laboratory and is intended forclinical purposes. Performed By: #### B REGINALDOPCRCHANG, BARTAB ####[facility]IESIA [id number] [place] [address] BARTONELLA HENSELAE AB, IGM < 1:16 Normal [facility] Comment on above: Order Comment: Speci men Type: BLOOD SPECIMENOrdering Facility: [facility] Address: [address] [place] [address] Result Comment: INTE RPRETIVE INFORMATION: Bartonella henselae [...] was developed and its performance characteristicsdetermined by [facility]. It has not been cleared orapproved by the [place] Food and Drug Administration. This test wasperformed in a CLIA certified laboratory and is intended forclinical purposes. Performed By: #### B CHANG FORTUNE, BARTAB ####[facility]USIA [id number] [place] [address] BARTONELLA PCRon 01-11-2025 BARTONELLA PCR RESULT Not detected Normal [facility] Comment on above: Order Comment: Speci men Type: BLOOD SPECIMENOrdering Facility: [facility] Address: [address] [place] [address] Result Comment: NOT DETECTED - A negative result does not rule out thepresence of PCR inhibitors in the patient specimen orassay specific nucleic acid in concentrations below thelevel of detection by the assay.INTERPRETIVE INFORMATION: Bartonella Species Detection by PCRThis test was developed and its performance characteristicsdetermined by [employer]. It has not been cleared orapproved by the [place] Food and Drug Administration. This test wasperformed in a CLIA certified laboratory and is intended forclinical purposes.Performed By: [employer] [place], [place] [address]Aowylxopde Director: Jc Fine MD, PhDCLIA Number: [id number] Performed By: #### B ARPCR, WHIPWB, BARTAB ####[facility]ENTERIA [id number] [place] [address] BARTONELLA PCR SOURCE Blood Normal [facility] Comment on above: Order Comment: Speci men Type: BLOOD SPECIMENOrdering Facility: [facility] Address: [address] [place] [address] Performed By: #### B ARPCR, VIKASIPWB, BARTAB ####[facility]USIA [id number] [place] [address] Bacteria Bld Culton 01-11-20 25 Bacteria identified Cx Nom (Bld) CULTURE, BLOOD: No growth 5 days Normal [facility] Comment on above: Performed By: #### 6 00-7 ####[facility] LABCLIA [id number] [place] [address] [place] Bacteria identified Cx Nom (Bld) CULTURE, BLOOD: No growth 5 days Normal [facility] Comment on above: Performed By: #### 6 00-7 ####[facility] LABCLIA [id number] [place] [address] [place] CASE MGT INIT ASSESon 2024 CASE MGT INIT ASSES Normal [facility] CBC W Ordered Manual Differe ntial panel (Bld)on 01-11-2025 Basophils (Bld) [#/Vol] 10*3/uL Normal <0.11 [facility] Comment on above: Order Comment: Speci men Type: BLOOD SPECIMENOrdering Facility: [facility] Address: [address] [place] [address] Performed By: #### S TFREV, 38358-7 ####[facility] LABCLIA [id number] [place] [address] [place] Basophils/100 WBC (Bld) 0.1 % Normal [facility] Comment on above: Order Comment: Speci men Type: BLOOD SPECIMENOrdering Facility: [facility] Address: [address] [place] [address] Performed By: #### S TFREV, 64231-5 ####[facility] LABCLIA [id number] [place] [address] [place] Differential cell count method Nom (Bld) Auto Normal [facility] Comment on above: Order Comment: Speci men Type: BLOOD SPECIMENOrdering Facility: [facility] Address: [address] [place] [address] Performed By: #### S TFREV, 07647-8 ####[facility] LABCLIA [id number] [place] [address] [place] Eosinophils (Bld) [#/Vol] 0.07 10*3/uL Normal <0.46 [facility] Comment on above: Order Comment: Speci men Type: BLOOD SPECIMENOrdering Facility: [facility] Address: [address] [place] [address] Performed By: #### S TFREV, 65905-7 ####[facility] LABCLIA [id number] [place] [address] [place] Eosinophils/100 WBC (Bld) 0.4 % Normal [facility] Comment on above: Order Comment: Speci men Type: BLOOD SPECIMENOrdering Facility: [facility] Address: [address] [place] [address] Performed By: #### S TFREV, 89740-6 ####[facility] LABCLIA [id number] [place] [address] [place] Erythrocyte distribution width (RBC) [Ratio] 14.7 % Normal 11.5-15.0 [facility] Comment on above: Order Comment: Speci men Type: BLOOD SPECIMENOrdering Facility: [facility] Address: [address] [place] [address] Performed By: #### S TFREV, 42434-4 ####[facility] LABCLIA [id number] [place] [address] [place] Hematocrit (Bld) [Volume fraction] 26.2 % Low 36.0-46.0 [facility] Comment on above: Order Comment: Speci men Type: BLOOD SPECIMENOrdering Facility: [facility] Address: [address] [place] [address] Performed By: #### S TFREV, 02728-8 ####[facility] LABCLIA [id number] [place] [address] [place] Hemoglobin (Bld) [Mass/Vol] 8.4 g/dL Low 11.5-15.5 [facility] Comment on above: Order Comment: Speci men Type: BLOOD SPECIMENOrdering Facility: [facility] Address: [address] [place] [address] Performed By: #### S TFREV, 68570-5 ####[facility] LABCLIA [id number] [place] [address] [place] Immature granulocytes (Bld) [#/Vol] 0.17 10*3/uL High <0.10 [facility] Comment on above: Order Comment: Speci men Type: BLOOD SPECIMENOrdering Facility: [facility] Address: [address] [place] [address] Performed By: #### S TFREV, 11569-4 ####[facility] LABCLIA [id number] [place] [address] [place] Immature granulocytes/100 WBC (Bld) 1.0 % Normal [facility] Comment on above: Order Comment: Speci men Type: BLOOD SPECIMENOrdering Facility: [facility] Address: [address] [place] [address] Performed By: #### S TFRBROCK, 03389-2 ####[facility] LABCLIA [id number] [place] [address] [place] Lymphocytes (Bld) [#/Vol] 0.70 10*3/uL Low 1.00-4.00 [facility] Comment on above: Order Comment: Speci men Type: BLOOD SPECIMENOrdering Facility: [facility] Address: [address] [place] [address] Performed By: #### S TFRBROCK, 64187-0 ####[facility] LABCLIA [id number] [place] [address] [place] Lymphocytes/100 WBC (Bld) 4.3 % Normal [facility] Comment on above: Order Comment: Speci men Type: BLOOD SPECIMENOrdering Facility: [facility] Address: [address] [place] [address] Performed By: #### S TFRBROCK, 92700-2 ####[facility] LABCLIA [id number] [place] [address] [place] MCH (RBC) [Entitic mass] 29.1 pg Normal 26.0-34.0 [facility] Comment on above: Order Comment: Speci men Type: BLOOD SPECIMENOrdering Facility: [facility] Address: [address] [place] [address] Performed By: #### S TFRBROCK, 30649-0 ####[facility] LABCLIA [id number] [place] [address] [place] MCHC (RBC) [Mass/Vol] 32.1 g/dL Normal 30.5-36.0 [facility] Comment on above: Order Comment: Speci men Type: BLOOD SPECIMENOrdering Facility: [facility] Address: [address] [place] [address] Performed By: #### S TFREV, 28562-0 ####[facility] LABCLIA [id number] [place] [address] [place] MCV (RBC) [Entitic vol] 90.7 fL Normal 80.0-100.0 [facility] Comment on above: Order Comment: Speci men Type: BLOOD SPECIMENOrdering Facility: [facility] Address: [address] [place] [address] Performed By: #### S TFREV, 77631-5 ####[facility] LABCLIA [id number] [place] [address] [place] Monocytes (Bld) [#/Vol] 1.14 10*3/uL High <0.87 [facility] Comment on above: Order Comment: Speci men Type: BLOOD SPECIMENOrdering Facility: [facility] Address: [address] [place] [address] Performed By: #### S TFREV, 52966-8 ####[facility] LABCLIA [id number] [place] [address] [place] Monocytes/100 WBC (Bld) 7.0 % Normal [facility] Comment on above: Order Comment: Speci men Type: BLOOD SPECIMENOrdering Facility: [facility] Address: [address] [place] [address] Performed By: #### S TFREV, 63059-1 ####[facility] LABCLIA [id number] [place] [address] [place] Neutrophils (Bld) [#/Vol] 14.24 10*3/uL High 1.45-7.50 [facility] Comment on above: Order Comment: Speci men Type: BLOOD SPECIMENOrdering Facility: [facility] Address: [address] [place] [address] Performed By: #### S TFREV, 27421-6 ####[facility] LABCLIA [id number] [place] [address] [place] Neutrophils/100 WBC (Bld) 87.2 % Normal [facility] Comment on above: Order Comment: Speci men Type: BLOOD SPECIMENOrdering Facility: [facility] Address: [address] [place] [address] Performed By: #### S TFREV, 23722-5 ####[facility] LABCLIA [id number] [place] [address] [place] Nucleated RBC (Bld) [#/Vol] 10*3/uL Normal <0.01 [facility] Comment on above: Order Comment: Speci men Type: BLOOD SPECIMENOrdering Facility: [facility] Address: [address] [place] [address] Performed By: #### S TFREV, 28221-5 ####[facility] LABCLIA [id number] [place] [address] [place] Nucleated RBC/100 WBC (Bld) [Ratio] 0.0 /100 WBC Normal [facility] Comment on above: Order Comment: Speci men Type: BLOOD SPECIMENOrdering Facility: [facility] Address: [address] [place] [address] Performed By: #### S TFREV, 08228-2 ####[facility] LABCLIA [id number] [place] [address] [place] Platelet mean volume (Bld) [Entitic vol] 9.4 fL Normal 9.0-12.7 [facility] Comment on above: Order Comment: Speci men Type: BLOOD SPECIMENOrdering Facility: [facility] Address: [address] [place] [address] Performed By: #### S TFREV, 22796-9 ####[facility] LABCLIA [id number] [place] [address] [place] Platelets (Bld) [#/Vol] 135 10*3/uL Low 150-400 [facility] Comment on above: Order Comment: Speci men Type: BLOOD SPECIMENOrdering Facility: [facility] Address: [address] [place] [address] Performed By: #### S TFRBROCK, 94938-9 ####[facility] LABCLIA [id number] [place] [address] [place] RBC (Bld) [#/Vol] 2.89 10*6/uL Low 3.90-5.20 [facility] Comment on above: Order Comment: Speci men Type: BLOOD SPECIMENOrdering Facility: [facility] Address: [address] [place] [address] Performed By: #### S TFRBROCK, 95183-7 ####[facility] LABCLIA [id number] [place] [address] [place] WBC (Bld) [#/Vol] 16.34 10*3/uL High 3.70-11.00 [facility] Comment on above: Order Comment: Speci men Type: BLOOD SPECIMENOrdering Facility: [facility] Address: [address] [place] [address] Performed By: #### S TFRBROCK, 81488-9 ####[facility] LABCLIA [id number] [place] [address] [place] CBC panel Auto (Bld)on 01-11 Erythrocyte distribution width (RBC) [Ratio] 14.9 % Normal 11.5-15.0 [facility] Comment on above: Order Comment: Speci men Type: BLOOD SPECIMENOrdering Facility: [facility] Address: [address] [place] [address] Performed By: #### 5 8410-2 ####[facility] LABCLIA [id number] [place] [address] [place] Hematocrit (Bld) [Volume fraction] 25.7 % Low 36.0-46.0 [facility] Comment on above: Order Comment: Speci men Type: BLOOD SPECIMENOrdering Facility: [facility] Address: [address] [place] [address] Performed By: #### 5 8410-2 ####[facility] LABIA [id number] [place] [address] [place] Hemoglobin (Bld) [Mass/Vol] 8.4 g/dL Low 11.5-15.5 [facility] Comment on above: Order Comment: Speci men Type: BLOOD SPECIMENOrdering Facility: [facility] Address: [address] [place] [address] Performed By: #### 5 8410-2 ####[facility] [id number] [place] [address] [place] MCH (RBC) [Entitic mass] 28.6 pg Normal 26.0-34.0 [facility] Comment on above: Order Comment: Speci men Type: BLOOD SPECIMENOrdering Facility: [facility] Address: [address] [place] [address] Performed By: #### 5 8410-2 ####[facility] [id number] [place] [address] [place] MCHC (RBC) [Mass/Vol] 32.7 g/dL Normal 30.5-36.0 [facility] Comment on above: Order Comment: Speci men Type: BLOOD SPECIMENOrdering Facility: [facility] Address: [address] [place] [address] Performed By: #### 5 8410-2 ####[facility] [id number] [place] [address] [place] MCV (RBC) [Entitic vol] 87.4 fL Normal 80.0-100.0 [facility] Comment on above: Order Comment: Speci men Type: BLOOD SPECIMENOrdering Facility: [facility] Address: [address] [place] [address] Performed By: #### 5 8410-2 ####[facility] LABCLIA [id number] [place] [address] [place] Nucleated RBC (Bld) [#/Vol] 10*3/uL Normal <0.01 [facility] Comment on above: Order Comment: Speci men Type: BLOOD SPECIMENOrdering Facility: [facility] Address: [address] [place] [address] Performed By: #### 5 8410-2 ####[facility] LABCLIA [id number] [place] [address] [place] Platelet mean volume (Bld) [Entitic vol] 10.4 fL Normal 9.0-12.7 [facility] Comment on above: Order Comment: Speci men Type: BLOOD SPECIMENOrdering Facility: [facility] Address: [address] [place] [address] Performed By: #### 5 8410-2 ####[facility] LABCLIA [id number] [place] [address] [place] Platelets (Bld) [#/Vol] 126 10*3/uL Low 150-400 [facility] Comment on above: Order Comment: Speci men Type: BLOOD SPECIMENOrdering Facility: [facility] Address: [address] [place] [address] Performed By: #### 5 8410-2 ####[facility] LABCLIA [id number] [place] [id number] [place] RBC (Bld) [#/Vol] 2.94 10*6/uL Low 3.90-5.20 [facility] Comment on above: Order Comment: Speci men Type: BLOOD SPECIMENOrdering Facility: [facility] Address: [address] [place] [address] Performed By: #### 5 8410-2 ####[facility] LABCLIA [id number] [place] [address] [place] WBC (Bld) [#/Vol] 16.59 10*3/uL High 3.70-11.00 [facility] Comment on above: Order Comment: Speci men Type: BLOOD SPECIMENOrdering Facility: [facility] Address: [address] [place] [address] Performed By: #### 5 8410-2 ####[facility] LABCLIA [id number] [place] [address] [place] CONSULTon 01-11-2025 CONSULT Normal [facility] CONSULT Normal [facility] CONSULT Normal [facility] CONSULT Normal [facility] CRP SerPl-mCncon 01-11-2025 CRP [Mass/Vol] 2.5 mg/dL High <0.9 [facility] Comment on above: Order Comment: Speci men Type: BLOOD SPECIMENOrdering Facility: [facility] Address: [address] [place] [address] Performed By: #### 2 324-2, 2132-9, 2276-4, 31844-8, 1988-5, 28795-9, 05115-3, 2777-1 ####[facility] LABCLIA [id number] [place] [address] [place] CHEST WO IVCONon 01-11-[address] CHEST WO IVCON Normal [facility] CT FLANK WO IVCONon 01-11-[address] FLANK WO IVCON Normal [facility] CYTOMEGALOVIRUS (CMV) DNA, Q UANTITATIVE PCR, PLASMAon 01-11-2025 CMV DNA ULICES+probe [#/Vol] 464 IU/mL High [facility] Comment on above: Order Comment: Speci men Type: BLOOD SPECIMENOrdering Facility: [facility] Address: [address] [place] [address] Performed By: #### C MVQNT ####[facility] LABCLIA [id number] [place] [address] [place] CMV DNA ULICES+probe [Log #/Vol] 2.67 log IU/mL High [facility] Comment on above: Order Comment: Speci men Type: BLOOD SPECIMENOrdering Facility: [facility] Address: [address] [place] [address] Performed By: #### C MVQNT ####[facility] LABCLIA [id number] [place] [address] [place] CMV DNA ULICES+probe Qn (P) Detected Abnormal Not Detected [facility] Comment on above: Order Comment: Speci men Type: BLOOD SPECIMENOrdering Facility: [facility] Address: [address] [place] [address] Performed By: #### C MVQNT ####[facility] LABCLIA [id number] [place] [address] [place] Comprehensive metabolic 2000 panelon 01-11-2025 Albumin [Mass/Vol] 2.6 g/dL Low 3.9-4.9 [facility] Comment on above: Order Comment: Speci men Type: BLOOD SPECIMENOrdering Facility: [facility] Address: [address] [place] [address] Performed By: #### 2 324-2, 2131-9, 2275-4, 67015-0, 1988-04, 99302-2, 49112-4, 2776- ####[facility] LABCLIA [id number] [place] [address] [place] ALP [Catalytic activity/Vol] 166 U/L High 34-123 [facility] Comment on above: Order Comment: Speci men Type: BLOOD SPECIMENOrdering Facility: [facility] Address: [address] [place] [address] Performed By: #### 2 324-2, 2131-9, 6-4, 86946-5, 1988-04, 68392-4, 55328-1, 2776- ####[facility] LABCLIA [id number] [place] [id number] [place] ALT [Catalytic activity/Vol] 24 U/L Normal 7-38 [facility] Comment on above: Order Comment: Speci men Type: BLOOD SPECIMENOrdering Facility: [facility] Address: [address] [place] [address] Performed By: #### 2 324-2, 2132-9, 6-4, 31640-6, 1988-04, , , 2776- ####[facility] LABCLIA [id number] [place] [address] [place] Anion gap [Moles/Vol] 16 mmol/L High 8-15 [facility] Comment on above: Order Comment: Speci men Type: BLOOD SPECIMENOrdering Facility: [facility] Address: [address] [place] [address] Performed By: #### 2 324-2, 2131-9, 2275-4, 44247-9, 1988-04, , , 2776- ####[facility] LABCLIA [id number] [place] [address] [place] AST [Catalytic activity/Vol] 31 U/L Normal 13-35 [facility] Comment on above: Order Comment: Speci men Type: BLOOD SPECIMENOrdering Facility: [facility] Address: [address] [place] [address] Result Comment: Resu lts may be falsely increased due to interference from hemolysis. Suggest reorder as clinically indicated. Performed By: #### 2 324-2, 2-9, 6-4, 22972-7, 1988-04, , , 2776- ####[facility] LABCLIA [id number] [place] [id number] [place] Bilirubin [Mass/Vol] 0.2 mg/dL Normal 0.2-1.3 [facility] Comment on above: Order Comment: Speci men Type: BLOOD SPECIMENOrdering Facility: [facility] Address: [address] [place] [address] Performed By: #### 2 324-2, 2131-9, 2275-4, 12020-5, 1988-04, , , 2776- ####[facility] LABCLIA [id number] [place] [id number] [place] Calcium [Mass/Vol] 6.4 mg/dL Low 8.5-10.2 [facility] Comment on above: Order Comment: Speci men Type: BLOOD SPECIMENOrdering Facility: [facility] Address: [address] [place] [address] Performed By: #### 2 324-2, 2131-9, 2275-4, 28884-2, 1988-04, , , 2776-12 ####[facility] LABCLIA [id number] [place] [address] [place] Chloride [Moles/Vol] 109 mmol/L High 98-107 [facility] Comment on above: Order Comment: Speci men Type: BLOOD SPECIMENOrdering Facility: [facility] Address: [address] [place] [address] Performed By: #### 2 324-2, 2131-9, 2275-4, 69957-4, 1988-04, , , 2776- ####[facility] LABCLIA [id number] [place] [id number] [place] CO2 [Moles/Vol] 19 mmol/L Low 22-30 [facility] Comment on above: Order Comment: Speci men Type: BLOOD SPECIMENOrdering Facility: [facility] Address: [address] [place] [address] Performed By: #### 2 324-2, 2131-9, 2275-4, 88142-4, 1988-04, , , 2776- ####[facility] LABCLIA [id number] [address] [address] [place] Creatinine [Mass/Vol] 4.28 mg/dL High 0.58-0.96 [facility] Comment on above: Order Comment: Speci men Type: BLOOD SPECIMENOrdering Facility: [facility] Address: [address] [place] [address] Performed By: #### 2 324-2, 9, 2275-4, 31663-4, 1988-04, , , 2776-12 ####[facility] LABIA [id number] [place] [address] [place] Creatinine and Glomerular filtration rate.predicted panel (S/P/Bld) 10 mL/min/1.73m??? Low >=60 [facility] Comment on above: Order Comment: Víctor friend Type: BLOOD SPECIMENOrdering Facility: [facility] Address: [address] [place] [address] Result Comment: Kelsey mated Glomerular Filtration Rate [...] actual GFR. Performed By: #### 2 324-2, 9, 2275-4, 55277-4, 1988-04, , 35623-8, 2776-12 ####[facility] LABIA [id number] [place] [id number] [place] Potassium [Moles/Vol] 4.0 mmol/L Normal 3.7-5.1 [facility] Comment on above: Order Comment: Verenai men Type: BLOOD SPECIMENOrdering Facility: [facility] Address: [address] [place] [address] Performed By: #### 2 324-2, 9, 2275-4, 17346-6, 1988-04, , , 2776- ####[facility] LABCLIA [id number] [address] [address] [place] Protein [Mass/Vol] 4.2 g/dL Low 6.3-8.0 [facility] Comment on above: Order Comment: Speci men Type: BLOOD SPECIMENOrdering Facility: [facility] Address: [address] [place] [address] Performed By: #### 2 324-2, 2131-9, 2275-4, 97913-3, 1988-04, , , 2776-12 ####[facility] LABCLIA [id number] [address] [address] [place] Sodium [Moles/Vol] 144 mmol/L Normal 136-144 [facility] Comment on above: Order Comment: Speci men Type: BLOOD SPECIMENOrdering Facility: [facility] Address: [address] [place] [address] Performed By: #### 2 324-2, 2131-9, 2275-4, , 1988-04, , , 2776-12 ####[facility] LABCLIA [id number] [place] [id number] [place] Urea nitrogen [Mass/Vol] 81 mg/dL High 7-21 [facility] Comment on above: Order Comment: Speci men Type: BLOOD SPECIMENOrdering Facility: [facility] Address: [address] [place], [place] [address] Performed By: #### 2 324-2, 2131-9, 2275-4, , 1988-04, , , 2776-12 ####[facility] LABCLIA [id number] [place] [id number] [place] Cryptoc Ag Spec Ql LAon Cryptococcus sp Ag LA Ql (Unsp spec) CRYPTOCOCCUS ANTIGEN : Cryptococcal Antigen NOT DETECTED by Lateral flow immunoassay. Normal [facility] Comment on above: Performed By: #### 4 3228-6 ####[facility] LABCLIA [id number] [place] [address] [place] EBV DNA ULICES+probe (Bld) [#/V ol]on 01-11-2025 EBV DNA ULICES+probe [#/Vol] Detected Abnormal Not detected [facility] Comment on above: Order Comment: Speci men Type: BLOOD SPECIMENOrdering Facility: [facility] Address: [address] [place] [address] Result Comment: 443 Performed By: #### 3 6923-1 ####[facility] LABCLIA [id number] [place] [address] [place] EBV DNA SerPl ULICES+probe-Log# 2.65 Log IU/mL High [facility] Comment on above: Order Comment: Speci men Type: BLOOD SPECIMENOrdering Facility: [facility] Address: [address] [place] [address] Performed By: #### 3 6923-1 ####[facility] LABCLIA [id number] [place] [address] [place] ECG COMPLETEon 01-11-2025 ECG COMPLETE Normal [facility] Ferritin SerPl-mCncon 2024 Ferritin [Mass/Vol] 652.0 ng/mL High 14.7-205.1 [facility] Comment on above: Order Comment: Speci men Type: BLOOD SPECIMENOrdering Facility: [facility] Address: [address] [place] [address] Performed By: #### 2 324-2, 2132-9, 2276-4, 26491-9, 1988-5, 04335-8, 04102-9, 2777-1 ####[facility] LABCLIA [id number] [place] [address] [place] Folate SerPl-mCncon 01-11-20 25 Folate [Mass/Vol] 3.2 ng/mL Low >4.7 [facility] Comment on above: Order Comment: Speci men Type: BLOOD SPECIMENOrdering Facility: [facility] Address: [address] [place] [address] Performed By: #### 2 284-8 ####[facility] LABCLIA [id number] [place] [address] [place] GGT SerPl-cCncon 01-11-2025 Gamma glutamyl transferase [Catalytic activity/Vol] 19 U/L Normal 6-46 [facility] Comment on above: Order Comment: Speci men Type: BLOOD SPECIMENOrdering Facility: [facility] Address: [address] [place] [address] Performed By: #### 2 324-2, 2132-9, 2276-4, 07468-3, 1987-5, 08385-8, 91774-3, 2777-1 ####[facility] LABIA [id number] [place] [address] [place] Gas + CO Pnl BldVon 01-11-20 25 Glucose [Mass/Vol] 60 mg/dL Low 74-99 [facility] Comment on above: Order Comment: Speci men Type: VENOUS BLOOD SPECIMENOrdering Facility: [facility] Address: [address] [place] [address] Performed By: #### 2 4344-4 ####[facility] LABCLIA [id number] [place] [address] [place] Order Comment: Speci men Type: BLOOD SPECIMENOrdering Facility: [facility] Address: [address] [place] [address] Result Comment: The [place] Diabetes Association (ADA) provides guidance for cutoff [...] Standards of Medical Care in Diabetes 2016, [place] [employer] Association. Diabetes Care. 2016.39(Suppl 1). Performed By: #### 2 324-2, 2132-9, 2276-4, 64685-7, 1987-5, 79589-3, 98498-2, 2777-1 ####[facility] LABCLIA [id number] [place] [address] [place] Gas and Carbon monoxide pane l (BldV)on 01-11-2025 BASE DEFICIT, VENOUS -3 mmol/L Low -2-0 [facility] Comment on above: Order Comment: Speci men Type: VENOUS BLOOD SPECIMENOrdering Facility: [facility] Address: [address] [place] [address] Performed By: #### 2 4344-4 ####[facility] LABCLIA [id number] [place] [address] [place] Body temperature 98.78 [degF] Normal [facility] Comment on above: Order Comment: Speci men Type: VENOUS BLOOD SPECIMENOrdering Facility: [facility] Address: [address] [place] [address] Performed By: #### 2 4344-4 ####[facility] LABCLIA [id number] [place] [id number] [place] Calcium.ionized (Bld) [Mass/Vol] 0.93 mmol/L Low 1.08-1.30 [facility] Comment on above: Order Comment: Speci men Type: VENOUS BLOOD SPECIMENOrdering Facility: [facility] Address: [address] [place] [address] Performed By: #### 2 4344-4 ####[facility] LABCLIA [id number] [address] [address] [place] Calcium.ionized adjusted to pH 7.4 (BldA) [Moles/Vol] 0.91 mmol/L Low 1.08-1.30 [facility] Comment on above: Order Comment: Speci men Type: VENOUS BLOOD SPECIMENOrdering Facility: [facility] Address: [address] [place] [address] Performed By: #### 2 4344-4 ####[facility] LABIA [id number] [place] [address] [place] Carboxyhemoglobin (BldV) [Mass fraction] 1.5 % Normal 0.0-2.0 [facility] Comment on above: Order Comment: Speci men Type: VENOUS BLOOD SPECIMENOrdering Facility: [facility] Address: [address] [place] [address] Result Comment: Carb oxyhemoglobin Reference Range for Smokers: 2.0-8.0% Performed By: #### 2 4344-4 ####[facility] LABIA [id number] [place] [address] [place] CO2 (BldV) [Partial pressure] 40 mm[Hg] Low 42-55 [facility] Comment on above: Order Comment: Speci men Type: VENOUS BLOOD SPECIMENOrdering Facility: [facility] Address: [address] [place] [address] Performed By: #### 2 4344-4 ####[facility] LABCLIA [id number] [place] [address] [place] CO2 adjusted to patient's actual temperature (BldV) [Partial pressure] 40 mmHg Low 42-55 [facility] Comment on above: Order Comment: Speci men Type: VENOUS BLOOD SPECIMENOrdering Facility: [facility] Address: [address] [place] [address] Performed By: #### 2 4344-4 ####[facility] LABCLIA [id number] [place] [address] [place] HCO3 (Bld) [Moles/Vol] 22 mmol/L Low 24-28 [facility] Comment on above: Order Comment: Speci men Type: VENOUS BLOOD SPECIMENOrdering Facility: [facility] Address: [address] [place] [address] Performed By: #### 2 4344-4 ####[facility] LABIA [id number] [place] [address] [place] Hematocrit (Bld) [Volume fraction] 26.9 % Low 36.0-46.0 [facility] Comment on above: Order Comment: Speci men Type: VENOUS BLOOD SPECIMENOrdering Facility: [facility] Address: [address] [place] [address] Performed By: #### 2 4344-4 ####[facility] LABIA [id number] [place] [address] [place] Hemoglobin (Bld) [Mass/Vol] 8.7 g/dL Low 11.5-15.5 [facility] Comment on above: Order Comment: Speci men Type: VENOUS BLOOD SPECIMENOrdering Facility: [facility] Address: [address] [place] [address] Performed By: #### 2 4344-4 ####[facility] LABIA [id number] [place] [address] [place] Lactate [Moles/Vol] 1.4 mmol/L Normal 0.5-2.2 [facility] Comment on above: Order Comment: Speci men Type: VENOUS BLOOD SPECIMENOrdering Facility: [facility] Address: [address] [place] [address] Performed By: #### 2 4344-4 ####[facility] LABCLIA [id number] [place] [address] [place] Methemoglobin (Bld) [Mass fraction] 1.4 % Normal 0.0-1.5 [facility] Comment on above: Order Comment: Speci men Type: VENOUS BLOOD SPECIMENOrdering Facility: [facility] Address: [address] [place] [id number] Performed By: #### 2 4344-4 ####[facility] LABCLIA [id number] [address] [address] [place] O2 THERAPY RA=Room Air Normal [facility] Comment on above: Order Comment: Speci men Type: VENOUS BLOOD SPECIMENOrdering Facility: [facility] Address: [address] [place], [place] [address] Performed By: #### 2 4344-4 ####[facility] LABCLIA [id number] [place] [address] [place] Oxygen (BldV) [Partial pressure] 42 mm[Hg] Normal 35-45 [facility] Comment on above: Order Comment: Speci men Type: VENOUS BLOOD SPECIMENOrdering Facility: [facility] Address: [address] [place], [place] [address] Performed By: #### 2 4344-4 ####[facility] LABCLIA [id number] [place] [address] [place] Oxygen adjusted to patient's actual temperature (BldV) [Partial pressure] 42 mmHg Normal 35-45 [facility] Comment on above: Order Comment: Speci men Type: VENOUS BLOOD SPECIMENOrdering Facility: [facility] Address: [address] [place], [place] [address] Performed By: #### 2 4344-4 ####[facility] LABCLIA [id number] [address] [address] [place] Oxygen saturation in Venous blood 73 % Normal 60-85 [facility] Comment on above: Order Comment: Speci men Type: VENOUS BLOOD SPECIMENOrdering Facility: [facility] Address: [address] [place], [place] [address] Performed By: #### 2 4344-4 ####[facility] LABCLIA [id number] [place] [address] [place] Oxyhemoglobin (BldV) [Mass fraction] 71 % Normal 60-85 [facility] Comment on above: Order Comment: Speci men Type: VENOUS BLOOD SPECIMENOrdering Facility: [facility] Address: [address] [place] [address] Performed By: #### 2 4344-4 ####[facility] LABIA [id number] [place] [address] [place] pH (BldV) 7.35 [pH] Normal 7.32-7.42 [facility] Comment on above: Order Comment: Speci men Type: VENOUS BLOOD SPECIMENOrdering Facility: [facility] Address: [address] [place] [address] Performed By: #### 2 4344-4 ####[facility] LABIA [id number] [place] [address] [place] pH adjusted to patient's actual temperature (BldV) 7.35 Normal 7.32-7.42 [facility] Comment on above: Order Comment: Speci men Type: VENOUS BLOOD SPECIMENOrdering Facility: [facility] Address: [address] [place] [address] Performed By: #### 2 4344-4 ####[facility] LABIA [id number] [place] [address] [place] Potassium [Moles/Vol] 3.8 mmol/L Normal 3.5-5.0 [facility] Comment on above: Order Comment: Speci men Type: VENOUS BLOOD SPECIMENOrdering Facility: [facility] Address: [address] [place] [address] Performed By: #### 2 4344-4 ####[facility] LABCLIA [id number] [place] [address] [place] Sodium [Moles/Vol] 141 mmol/L Normal 136-144 [facility] Comment on above: Order Comment: Speci men Type: VENOUS BLOOD SPECIMENOrdering Facility: [facility] Address: [address] [place] [address] Performed By: #### 2 4344-4 ####[facility] LABCLIA [id number] [place] [address] [place] H capsul Ab Ser Ql IDon - H. capsulatum Ab Immune diff Ql (S) Negative Normal Negative [facility] Comment on above: Order Comment: Speci men Type: BLOOD SPECIMENOrdering Facility: [facility] Address: [address] [place] [address] Result Comment: Hist oplasma antibody test by Immun[employer] may be used as an aid in diagnosis of infection with the dimorphic fungus Histoplasma capsulatum. Histoplasma antibody test has low overall diagnostic sensitivity especially with localized disease. Immunodiffusion test is more specific but less sensitive than complement fixation test. Clinical and epidemiological correlation is required. Performed By: #### 5 218-3 ####[facility] LABCLIA [id number] [place] [address] [place] HISTO CAPSULATUM AGon 2024 HISTOPLASMA ANTIGEN, SERUM Not detected Normal Not Detected [facility] Comment on above: Order Comment: Speci men Type: BLOOD SPECIMENOrdering Facility: [facility] Address: [address] [place] [address] Result Comment: Perf ormed By: [facility] [place], [place] [id number] Director: Jc Fine MD, PhDCLIA Number: [id number] Performed By: #### S HISTO ####[facility] LABORATORIESIA [id number] [place] [address] HISTOPLASMA ANTIGEN, SERUM INTERP Not detected Normal Not Detected [facility] Comment on above: Order Comment: Speci men Type: BLOOD SPECIMENOrdering Facility: [facility] Address: [address] [place] [address] Result Comment: INTE RPRETIVE INFORMATION: Histoplasma Antigen [...] was developed and its performance characteristicsdetermined by [facility]. It has not been cleared orapproved by the [place] Food and Drug Administration. This test wasperformed in a CLIA certified laboratory and is intended forclinical purposes. Performed By: #### S HISTO ####[facility] LABORATORIESCLIA [id number] [place] [address] HISTOPLASMA AB CFon 01-11-20 25 HISTOPLASMA MYCELIA, CF <1:8 Normal <1:8 [facility] Comment on above: Order Comment: Speci men Type: BLOOD SPECIMENOrdering Facility: [facility] Address: [address] [place] [address] Result Comment: INTE RPRETIVE INFORMATION: Histoplasma Mycelia Antibodies by SUMMER LAW CLERK titer of 1:8 or greater is generally considered presumptiveevidence of histoplasmosis. A titer of 1:32 or greater or risingtiters indicate strong presumptive evidence of histoplasmosis.Cross reactions, usually at lower titers, may occur with otherfungal diseases. Performed By: #### H ISTCF ####[facility] LABORATORIESCLIA [id number] [place] [address] HISTOPLASMA YEAST, CF <1:8 Normal <1:8 [facility] Comment on above: Order Comment: Speci men Type: BLOOD SPECIMENOrdering Facility: [facility] Address: [address] [place] [address] Result Comment: INTE RPRETIVE INFORMATION: Histoplasma Yeast Antibodies by SUMMER LAW CLERK titer of 1:8 or greater is generally considered presumptiveevidence of histoplasmosis. A titer of 1:32 or greater or risingtiters indicate strong presumptive evidence of histoplasmosis.Cross reactions, usually at lower titers, may occur with otherfungal diseases.Performed By: [facility] [place] [id number] Director: Jc Fine MD, PhDCLIA Number: [id number] Performed By: #### H ISTCF ####[facility] [id number] [place] [address] HISTORY PHYSICALon HISTORY PHYSICAL Normal [facility] Iron and Iron binding capaci ty panelon 01-11-2025 Iron [Mass/Vol] 74 ug/dL Normal 41-186 [facility] Comment on above: Order Comment: Speci men Type: BLOOD SPECIMENOrdering Facility: [facility] Address: [address] [place] [address] Performed By: #### 2 324-2, 2-9, 6-4, 29042-9, 1988-04, , , 2776- ####[facility] [id number] [address] [address] [place] Iron binding capacity [Mass/Vol] 130 ug/dL Low 232-386 [facility] Comment on above: Order Comment: Speci men Type: BLOOD SPECIMENOrdering Facility: [facility] Address: [address] [place], [place] [address] Performed By: #### 2 324-2, 2132-9, 6-4, 02952-8, 1988-04, , , 2776- ####[facility] LABIA [id number] [address] [address] [place] Iron/TIBC [Molar ratio] 56.9 % Normal 15.0-57.0 [facility] Comment on above: Order Comment: Speci men Type: BLOOD SPECIMENOrdering Facility: [facility] Address: [address] [place] [address] Performed By: #### 2 324-2, 2-9, 6-4, 15792-1, 1988-04, , , 2776-1 ####[facility] LABCLIA [id number] [place] [address] [place] Magnesium SerPl-mCncon 01-11 Magnesium [Mass/Vol] 1.6 mg/dL Low 1.7-2.3 [facility] Comment on above: Order Comment: Speci men Type: BLOOD SPECIMENOrdering Facility: [facility] Address: [address] [place] [address] Performed By: #### 2 324-2, 2-9, 6-4, 25147-0, 1988-04, , , 2776- ####[facility] LABCLIA [id number] [place] [address] [place] Microorganism Spec Culton Microorganism identified Cx Nom (Unsp spec) CULTURE, FUNGAL: No Fungus isolated after 28 days Normal [facility] Comment on above: Performed By: #### 1 1475-1 ####[facility] LABCLIA [id number] [place] [address] [place] NURSING PROGon 01-11-2025 NURSING PROG Normal [facility] NURSING PROG Normal [facility] PATHOLOGIST INTERPRETATION C BC/DIFFon 01-11-2025 Investments Manager review Frederick (Unsp spec) [Interp] No review performed. Normal [facility] Comment on above: Order Comment: Speci men Type: BLOOD SPECIMENOrdering Facility: [facility] Address: [address] [place] [address] Performed By: #### S TFREV, 21404-4 ####[facility] LABCLIA [id number] [place] [address] [place] STAFF REVIEW, CBCDIF Normal [facility] Comment on above: Order Comment: Speci men Type: BLOOD SPECIMENOrdering Facility: [facility] Address: [address] [place] [address] Performed By: #### S TFREV, 57553-7 ####[facility] LABCLIA [id number] [address] [place] PT panel Coag (PPP)on 2024 INR Coag (PPP) [Relative time] 1.5 {INR} High 0.9-1.3 [facility] Comment on above: Order Comment: Víctor friend Type: BLOOD SPECIMENOrdering Facility: [facility] Address: [address] [place] [address] Result Comment: Zulay min K Antagonist (VKA) Therapeutic Range: INR 2 to 3 (Target INR of 2.5)Note: For patients treated with VKA drugs, such as warfarin, the [employer] 2012 Guideline recommends [...] 3).Laura THORPE, et al. Chest 2012, 141:7S-47SAnais RA, et al. [facility] 2017, 70: 252-289 Performed By: #### 3 4528-0, 85759-6 ####[facility] LABCLIA [id number] [place] [address] [place] PT Coag (PPP) [Time] 15.4 s High 9.7-13.0 [facility] Comment on above: Order Comment: Speci men Type: BLOOD SPECIMENOrdering Facility: [facility] Address: [address] [place] [address] Performed By: #### 3 4528-0, 13919-2 ####[facility] LABCLIA [id number] [place] [address] [place] INR Coag (PPP) [Relative time] 1.5 {INR} High 0.9-1.3 [facility] Comment on above: Order Comment: Víctor men Type: BLOOD SPECIMENOrdering Facility: [facility] Address: [address] [place] [address] Result Comment: Zulay min K Antagonist (VKA) Therapeutic Range: INR 2 to 3 (Target INR of 2.5)Note: For patients treated with VKA drugs, such as warfarin, the [employer] 2012 Guideline recommends [...] al. Chest 2012, 141:7S-47SNishelmer RA, et al. [facility] 2017, 70: 252-289 Performed By: #### 3 4528-0 ####[facility] LABCLIA [id number] [place] [address] [place] PT Coag (PPP) [Time] 16.1 s High 9.7-13.0 [facility] Comment on above: Order Comment: Verenai men Type: BLOOD SPECIMENOrdering Facility: [facility] Address: [address] [place] [address] Performed By: #### 3 4528-0 ####[facility] LABCLIA [id number] [place] [address] [place] Phosphate SerPl-mCncon 01-11 Phosphate [Mass/Vol] 4.3 mg/dL Normal 2.7-4.8 [facility] Comment on above: Order Comment: Speci men Type: BLOOD SPECIMENOrdering Facility: [facility] Address: [address] [place] [address] Performed By: #### 2 324-2, 2132-9, 2276-4, 19970-3, 1987-5, 07967-3, 39145-3, 2777-1 ####[facility] LABCLIA [id number] [place] [address] [place] Procalcitonin SerPl-ncon 0 01-11-2025 Procalcitonin [Mass/Vol] 0.22 ng/mL High <0.09 [facility] Comment on above: Order Comment: Speci men Type: BLOOD SPECIMENOrdering Facility: [facility] Address: [address] [place] [address] Result Comment: For a guided interpretation of test results, please visit the Change in Procalcitonin Calculator, [email or web address]. Performed By: #### 3 3959-8 ####[facility] LABCLIA [id number] [place] [address] [place] THERAPY NTon 01-11-2025 THERAPY NT Normal [facility] TYPE + SCREENon 01-11-2025 ABO O Normal [facility] Comment on above: Order Comment: Speci men Type: BLOOD SPECIMENOrdering Facility: [facility] Address: [address] [place] [address] Performed By: #### T SCR ####[facility] BLOOD BANKCLIA [id number] [place] [address] [place] Rh Nom (Bld) Negative Normal [facility] Comment on above: Order Comment: Speci men Type: BLOOD SPECIMENOrdering Facility: [facility] Address: [address] [place], [place] [address] Performed By: #### T SCR ####[facility] BLOOD BANKCLIA [id number] [place] [id number] [facility] TYPE AND SCREEN EXPIRATION 01/14/2025 23:59 Normal [facility] Comment on above: Order Comment: Speci men Type: BLOOD SPECIMENOrdering Facility: [facility] Address: [address] [place] [address] Performed By: #### T SCR ####[facility] BLOOD BANKCLIA [id number] [place] [id number] [facility] OF HERB Vit B12 SerPl-mCncon 025 Cobalamin (Vitamin B12) [Mass/Vol] 870 pg/mL Normal 232-1245 [facility] Comment on above: Order Comment: Speci men Type: BLOOD SPECIMENOrdering Facility: [facility] Address: [address] [place] [address] Performed By: #### 2 324-2, 2132-9, 2276-4, 87854-9, 1988-5, 06077-1, 48217-7, 2777-1 ####[facility] LABCLIA [id number] [address] STATES OF [facility] WHIPPLE'S PCRon 01-11-2025 Specimen source Nom (Unsp spec) Plasma Normal [facility] Comment on above: Order Comment: Speci men Type: BLOOD SPECIMENOrdering Facility: [facility] Address: [address] [place] [address] Performed By: #### B ARPCR, WHIPWB, BARTAB ####[facility]IESCLIA [id number] [place] [address] WHIPPLE'S PCR RESULT (WHIPWB) Not detected Normal [facility] Comment on above: Order Comment: Speci men Type: BLOOD SPECIMENOrdering Facility: [facility] Address: [address] [place] [address] Result Comment: NOT DETECTED - A negative result does not rule out thepresence of PCR inhibitors in the patient specimen orassay specific nucleic acid in concentrations below thelevel of detection by the assay.INTERPRETIVE INFORMATION: Tropheryma whipplei PCRThis test was developed and its performance characteristicsdetermined by [facility]. It has not been cleared orapproved by the [place] Food and Drug Administration. This test wasperformed in a CLIA certified laboratory and is intended forclinical purposes.Performed By: [employer] [place], [place] [id number] Director: Jc Fine MD, PhDCLIA Number: [id number] Performed By: #### B ARPCR, WHIPWB, BARTAB ####[facility] LABORATORIESIA [id number] [place] [address] XR CHEST 1V FRONTAL PORTon 0 01-11-2025 XR CHEST 1V FRONTAL PORT Normal [facility] aPTT PPPon 01-11-2025 aPTT Coag (PPP) [Time] 37.3 s High 23.0-32.4 [facility] Comment on above: Order Comment: Speci men Type: BLOOD SPECIMENOrdering Facility: [facility] Address: [address] [place] [address] Performed By: #### 3 4528-0, 50605-9 ####[facility] LABCLIA [id number] [address] [place] 30on 01-10-2025 30 The patient is Moder ately Unstable - Medium risk of patient condition declining or worsening The patient's goals for the shift include rest, comfort The clinical goals for the shift include VSS, tx [facility] Over the shift, the patient did not make progress toward the following goals. Barriers to progression include transfer to [facility]. Recommendations to address these barriers include making [...] and behaviors that affect risk of falls Fishtail fall precautions as indicated by assessment Educate [...] conditions and prevent exacerbation or deterioration Normal [facility] 30 The patient is Moder ately Unstable - Medium risk of patient condition declining or worsening The patient's goals for the shift include rest/comfort/ The clinical goals for the shift include stable vs/rest/comfort Problem: Pain - Adult Goal: Verbalizes/displays adequate comfort level or baseline comfort level Outcome: Progressing Flowsheets (Taken 01/10/2025 08) Verbalizes/displays adequate comfort level or baseline comfort [...] from fall injury Outcome: Progressing Flowsheets (Taken 01/10/2025 08) Free from fall injury: Assess patient frequently for physical needs Fishtail fall precautions as indicated by assessment Educate [...] and prevent overall improvement and discharge Normal [facility] 30 The patient is Moder ately [...] and behaviors that affect risk of falls Fishtail fall precautions as indicated by assessment Educate [...] maintained or improved Outcome: Progressing Flowsheets (Taken 01/10/202532) Care Plan - Patient's Chronic Conditions and Co-Morbidity Symptoms are Monitored and Maintained or Improved: Monitor and assess patient's chronic conditions and comorbid symptoms for stability, deterioration, or improvement Collaborate with multidisciplinary team to address chronic and comorbid conditions and prevent exacerbation or deterioration Normal [facility] BASIC METABOLIC PANELon 02-0 Anion gap [Moles/Vol] 13 mmol/L Normal 7-20 [facility] Comment on above: Performed By: #### L [id number] ####[facility] (BEAKER)[address] [place] [address] Calcium [Mass/Vol] 6.8 mg/dL Low 8.6-10.3 [facility] Comment on above: Performed By: #### L [id number] ####[facility] (BEAKER)[address] [place] [address] Chloride [Moles/Vol] 116 mmol/L High 98-107 [facility] Comment on above: Performed By: #### L [id number] ####[facility] ([facility]AKER)[address] [place] [address] CO2 [Moles/Vol] 15 mmol/L Low 21-31 [facility] Comment on above: Performed By: #### L [id number] ####[facility] (BEAKER)[address] [place] [address] Creatinine [Mass/Vol] 4.51 mg/dL High 0.60-1.20 [facility] Comment on above: Performed By: #### L [id number] ####[facility] ([facility])[address] [place] [address] GLOMERULAR FILTRATION RATE ML/MIN/1.73 SQ M.PREDICTED 9.3 mL/min/1.73m*2 Low >60.0 [facility] Comment on above: Result Comment: The [facility]???s estimated glomerular filtration rate (eGFR) will [...] of individuals. Performed By: #### L [id number] ####[facility] ([facility])[address] [place] [address] Glucose [Mass/Vol] 77 mg/dL Normal 70-100 [facility] Comment on above: Performed By: #### L [id number] ####[facility] ([facility])[address] [place] [address] Potassium [Moles/Vol] 4.3 mmol/L Normal 3.5-5.1 [facility] Comment on above: Performed By: #### L [id number] ####[facility] ([facility])[address] [facility] [place] [address] Sodium [Moles/Vol] 140 mmol/L Normal 136-145 [facility] Comment on above: Performed By: #### L [id number] ####[facility] ([facility])[address] [place] [address] Urea nitrogen [Mass/Vol] 85 mg/dL High 7-25 [facility] Comment on above: Performed By: #### L [id number] ####[facility] ([facility])[address] [place] [address] UREA NITROGEN/CREATININE (MASS RATIO) IN SER/PLAS 18.8 Normal [facility] Comment on above: Performed By: #### L [id number] ####[facility] ([facility])[address] [place] [address] CBC WITH AUTO DIFFERENTIALon 01-10-2025 Erythrocyte distribution width (RBC) [Ratio] 15.1 % High 11.5-15.0 [facility] Comment on above: Performed By: #### L [id number] ####[facility] ([facility])[address] [place] [address] ERYTHROCYTE MEAN CORPUSCULAR HEMOGLOBIN CONCENTRATION (G/DL) BY AUTOMATED 32.0 g/dL Normal 32.0-35.0 [facility] Comment on above: Performed By: #### L [id number] ####[facility] ([facility])[address] [place] [address] Hematocrit (Bld) [Volume fraction] 30.3 % Low 36.0-48.0 [facility] Comment on above: Performed By: #### L [id number] ####[facility] ([facility])[address] [place] [address] Hemoglobin (Bld) [Mass/Vol] 9.7 g/dL Low 12.0-15.0 [facility] Comment on above: Performed By: #### L [id number] ####[facility] ([facility])[address] [place] [address] MCH (RBC) [Entitic mass] 28.7 pg Normal 27.0-33.0 [facility] Comment on above: Performed By: #### L [id number] ####[facility] ([facility])[address] [place] [address] MCV (RBC) [Entitic vol] 89.6 fL Normal 82.0-98.0 [facility] Comment on above: Performed By: #### L [id number] ####[facility] ([facility])[address] [place] [address] NRBC (PER 100 WBCS) BY AUTOMATED COUNT 0.0 % Normal 0 [facility] Comment on above: Performed By: #### L [id number] ####[facility] (BEAKER)[address] [place] [place] [address] PLATELETS (10*3/UL) IN BLOOD AUTOMATED COUNT 196 10*3/uL Normal 150-400 [facility] Comment on above: Performed By: #### L [id number] ####[facility] ([facility])[address] [place] [address] RBC (Bld) [#/Vol] 3.38 10*6/uL Low 3.80-5.00 [facility] Comment on above: Performed By: #### L [id number] ####[facility] ([facility])[address] [place] [address] WBC (Bld) [#/Vol] 25.42 10*3/uL High 4.00-10.60 [facility] Comment on above: Performed By: #### L [id number] ####[facility] ([facility])[address] [place] [address] CONSULTon 01-10-2025 CONSULT Reason For Consult immunocompromised pt with leukocytosis, likely respiratory Referring Provider: hospital medicine History Of Present Illness Sylvia Herrera is a 79 y.o. female with a history of heart transplant at the [facility] in 2005 who was transferred from [facility] for worsening creatinine after admission for [...] transportation to the transplant clinic at the [facility]: She has CKD (last creatinine [...] pneumonia without improvement and was transferred to [facility] for additional care. At the time of [...] day (alternates with 100mcg tablet) Past Week mzqfrd-uvfaytss-jnnegqg (Creon) 24,000-76,000 -120,000 unit capsule Take 4 [...] 01/10/25 10 (more content not included)... Normal [facility] MANUAL DIFFERENTIALon 2024 BASOPHILS (10*3/UL) IN BLOOD BY CALCULATION 0.05 10*3/uL Normal 0.00-0.20 [facility] Comment on above: Performed By: #### L [id number] ####[facility] ([facility])[address] [place] [address] BASOPHILS/100 LEUKOCYTES IN BLOOD BY AUTOMATED COUNT 0.2 % Normal 0.0-1.0 [facility] Comment on above: Performed By: #### L [id number] ####[facility] ([facility])[address] [place] [address] EOSINOPHILS (10*3/UL) IN BLOOD BY CALCULATION 0.08 10*3/uL Normal 0.00-0.50 [facility] Comment on above: Performed By: #### L [id number] ####[facility] ([facility])[address] [place] [address] EOSINOPHILS/100 LEUKOCYTES IN BLOOD BY AUTOMATED COUNT 0.3 % Normal 0.0-6.0 [facility] Comment on above: Performed By: #### L [id number] ####[facility] ([facility])[address] [place] [address] IMMATURE GRANULOCYTES (10*3/UL) IN BLOOD BY CALCULATION 0.38 10*3/uL High 0.00-0.20 [facility] Comment on above: Performed By: #### L [id number] ####[facility] ([facility])[address] [place] [address] IMMATURE GRANULOCYTES/100 LEUKOCYTES IN BLOOD BY AUTOMATED COUNT 1.5 % High 0.0-1.0 [facility] Comment on above: Performed By: #### L [id number] ####[facility] ([facility])[address] [place] [address] LYMPHOCYTES (10*3/UL) IN BLOOD BY CALCULATION 0.89 10*3/uL Low 1.20-4.00 [facility] Comment on above: Performed By: #### L [id number] ####[facility] ([facility])[address] [place] [address] LYMPHOCYTES/100 LEUKOCYTES IN BLOOD BY AUTOMATED COUNT 3.5 % Low 20.0-45.0 [facility] Comment on above: Performed By: #### L [id number] ####[facility] ([facility])[address] [place] [address] MONOCYTES (10*3/UL) IN BLOOD BY CALCUATION 1.68 10*3/uL High 0.10-1.00 [facility] Comment on above: Performed By: #### L [id number] ####[facility] ([facility])[address] [place] [address] MONOCYTES/100 LEUKOCYTES IN BLOOD BY AUTOMATED COUNT 6.6 % Normal 5.0-12.0 [facility] Comment on above: Performed By: #### L [id number] ####[facility] ([facility])[address] [place] [address] NEUTROPHILS (10*3/UL) IN BLOOD BY CALCULATION 22.3 10*3/uL High 1.6-7.6 [facility] Comment on above: Performed By: #### L [id number] ####[facility] ([facility])[address] [place] [address] NEUTROPHILS/100 LEUKOCYTES IN BLOOD BY AUTOMATED COUNT 87.9 % High 40.0-72.0 [facility] Comment on above: Performed By: #### L [id number] ####[facility] ([facility])[address] [place] [address] TACROLIMUS LEVELon 5 Tacrolimus (Bld) [Mass/Vol] 9.8 ng/mL Normal 5.0-20.0 [facility] Comment on above: Result Comment: The [employer] DEVELOPMENT SPECIALIST Tacrolimus assay is a delayed one-step immunoassay for the quantitative determination of tacrolimus in human whole blood using the chemiluminescent microparticle immunoassay (CMIA) technology with flexible assay protocols, referred to as Chemiflex. Performed By: #### L [id number] #### [facility] ([facility]) [address] [place] [address] 1,9-LOFM-J-GLUCANon 01-09-20 25 (1,3)-WVRZ-W-FHLYCL <31 Normal [facility] Comment on above: Performed By: #### L [id number] ####[facility] ([facility])[address] [place] [address] (1,3)-ORYD-G-VPUEIU INTERPRETATION Negative Normal Negative [facility] Comment on above: Result Comment: INTE RPRETIVE INFORMATION: (1,3)-rzru-C-ovxtux (Fungitell) Less than 31 pg/mL ................... Negative 31-59 pg/mL .......................... Negative 60-79 pg/mL .......................... Indeterminate Greater than or equal to 80 pg/mL .... Positive The Fungitell test is indicated for presumptive diagnosis of fungal infection and should be used in conjunction with other diagnostic procedures. This test does not detect certain fungal species such as Cryptococcus, which produce very low levels of (1,3)-ibil-E-mzogaw. This test will not detect the zygomycetes, such as Absidia, Mucor, and Rhizopus, which are not known to produce (1,3)-ddmk-R-pcoigk. In addition, the yeast phase of Blastomyces dermatitidis produces little (1,3)-ndwc-U-cmttrz and may not be detected by the assay. Performed By: [facility] [address] [place] [address] [employer]sembler Mechanical Ordnance: Jc Fine MD, PhD CLIA Number: [id number] Performed By: #### L [id number] ####[facility] (BEAKER)[address] [place] [address] 30on 01-09-2025 30 The patient is Moder [...] injury: Assess patient frequently for physical needs Fishtail fall precautions as indicated by assessment Modify [...] maintained or improved Outcome: Progressing Flowsheets (Taken 01/09/2025815) Care Plan - Patient's Chronic Conditions and [...] and prevent overall improvement and discharge Normal [facility] 30 The patient is Moder ately [...] and behaviors that affect risk of falls Fishtail fall precautions as indicated by assessment Educate [...] maintained or improved Outcome: Progressing Flowsheets (Taken 01/09/2025307) Care Plan - Patient's Chronic Conditions and Co-Morbidity Symptoms are Monitored and Maintained or Improved: Monitor and assess patient's chronic conditions and comorbid symptoms for stability, deterioration, or improvement Collaborate with multidisciplinary team to address chronic and comorbid conditions and prevent exacerbation or deterioration Normal [facility] ASPERGILLUS GALACTOMANNAN AN TIGENon 01-09-2025 ASPERGILLUS GALACTOMANNAN ANTIGEN, SERUM Negative Normal Negative [facility] Comment on above: Result Comment: INTE [...] patients, serial sampling is recommended. Performed By: [facility] [address] [place] [address] As[employer]er [employer] Ordnance: Jc Fine MD, PhD CLIA Number: [id number] Performed By: #### L [id number] #### [facility] ([facility]) [address] [place] [address] ASPERGILLUS GALACTOMANNAN INDEX 0.03 Normal [facility] Comment on above: Performed By: #### L [id number] #### [facility] ([facility]ER) [address] [place] [address] BLOOD CULTUREon 01-09-2025 Bacteria identified Cx Nom (Bld) No growth at 5 days Normal [facility] Comment on above: Performed By: #### L [id number] ####[facility] ([facility])[address] [place] [address] Order Comment: From a different site than #1. CBC WITH AUTO DIFFERENTIALon 01-09-2025 Erythrocyte distribution width (RBC) [Ratio] 15.4 % High 11.5-15.0 [facility] Comment on above: Performed By: #### L [id number] ####[facility] ([facility])[address] [place] [address] ERYTHROCYTE MEAN CORPUSCULAR HEMOGLOBIN CONCENTRATION (G/DL) BY AUTOMATED 30.7 g/dL Low 32.0-35.0 [facility] Comment on above: Performed By: #### L [id number] ####[facility] ([facility])[address] [place] [address] Hematocrit (Bld) [Volume fraction] 30.9 % Low 36.0-48.0 [facility] Comment on above: Performed By: #### L [id number] ####[facility] ([facility])[address] [place] [address] Hemoglobin (Bld) [Mass/Vol] 9.5 g/dL Low 12.0-15.0 [facility] Comment on above: Performed By: #### L [id number] ####[facility] ([facility])[address] [place] [address] MCH (RBC) [Entitic mass] 29.1 pg Normal 27.0-33.0 [facility] Comment on above: Performed By: #### L [id number] ####[facility] ([facility])[address] [place] [address] MCV (RBC) [Entitic vol] 94.8 fL Normal 82.0-98.0 [facility] Comment on above: Performed By: #### L [id number] ####[facility] ([facility])[address] [place] [address] NRBC (PER 100 WBCS) BY AUTOMATED COUNT 0.0 % Normal 0 [facility] Comment on above: Performed By: #### L [id number] ####[facility] ([facility])[address] [place] [address] PLATELETS (10*3/UL) IN BLOOD AUTOMATED COUNT 207 10*3/uL Normal 150-400 [facility] Comment on above: Performed By: #### L [id number] ####[facility] ([facility])[address] [place] [address] RBC (Bld) [#/Vol] 3.26 10*6/uL Low 3.80-5.00 [facility] Comment on above: Performed By: #### L [id number] ####[facility] ([facility])[address] [place] [address] WBC (Bld) [#/Vol] 17.00 10*3/uL High 4.00-10.60 [facility] Comment on above: Performed By: #### L [id number] ####[facility] ([facility])[address] [place] [address] CLOSTRIDIOIDES DIFFICILE DNA AMPLIFICATIONon 01-09-2025 CLOSTRIDIOIDES DIFFICILE (TOXIN A/B) Negative Normal Negative [facility] Comment on above: Order Comment: Testi ng methodology is an in vitro diagnostic test for the direct, qualitative detection of the Clostridioides difficile Toxin A gene (tcdA) in unformed stool specimens of patients suspected of having Clostridioides difficile-infection (CDI). The Janet C. difficile Assay is intended for use as an aid in diagnosis of CDI. The assay utilizes helicase-dependent amplification (HDA) for the amplification of a highly conserved fragment of the Toxin A gene sequence. Performed By: #### L [id number] ####[facility] (BEAKER)[address] [place] [address] COMPREHENSIVE METABOLIC PANE Adan 01-09-2025 Albumin [Mass/Vol] 2.9 g/dL Low 3.5-5.7 [facility] Comment on above: Performed By: #### L [id number] #### [facility] THER[facility] [address] [place] [address] [place] ALP [Catalytic activity/Vol] 160 U/L High 34-104 [facility] Comment on above: Performed By: #### L [id number] #### [facility]PIRAT[facility] THERAP[facility] [address] [place] [address] [place] ALT [Catalytic activity/Vol] 26 U/L Normal 7-52 [facility] Comment on above: Performed By: #### L [id number] #### [facility]PIRAT[facility] THERAPY [address] [place] [address] [place] Anion gap [Moles/Vol] 13 mmol/L Normal 7-20 [facility] Comment on above: Performed By: #### L [id number] #### [facility] RESPIRATORY THERAPY [address] [place] [address] [facility] AST [Catalytic activity/Vol] 20 U/L Normal 13-39 [facility] Comment on above: Performed By: #### L [id number] #### [facility] RESPIRATORY THERAPY [address] [place] [address] [facility] Bilirubin [Mass/Vol] 0.3 mg/dL Normal 0.3-1.0 [facility] Comment on above: Performed By: #### L [id number] #### [facility] RESPIRATORY THERAPY [address] [place] [address] [place] Calcium [Mass/Vol] 7.4 mg/dL Low 8.6-10.3 [facility] Comment on above: Performed By: #### L [id number] #### [facility]PIR[facility] THERAPY [address] [place] [address] [place] Chloride [Moles/Vol] 119 mmol/L High 98-107 [facility] Comment on above: Performed By: #### L [id number] #### [facility]PIR[facility]ORY THERAPY [address] [place] [address] [place] CO2 [Moles/Vol] 10 mmol/L Invalid Interpretation Code 21-31 [facility] Comment on above: Performed By: #### L [id number] #### [facility] RESPIRATORY THERAPY [address] [place] [address] [place] Creatinine [Mass/Vol] 4.40 mg/dL High 0.60-1.20 [facility] Comment on above: Performed By: #### L [id number] #### [facility] RESPIRATORY THERAPY [address] [place] [address] [facility] GLOMERULAR FILTRATION RATE ML/MIN/1.73 SQ M.PREDICTED 9.6 mL/min/1.73m*2 Low >60.0 [facility] Comment on above: Result Comment: The [facility]???s estimated glomerular filtration rate (eGFR) will [...] group of individuals. Performed By: #### L [id number] #### [facility] RESPIRATORY THERAPY [address] [place] [address] [facility] Glucose [Mass/Vol] 105 mg/dL High 70-100 [facility] Comment on above: Performed By: #### L [id number] #### [facility]PIRATORY THERAPY [address] [place] [address] [facility] Potassium [Moles/Vol] 4.8 mmol/L Normal 3.5-5.1 [facility] Comment on above: Performed By: #### L [id number] #### [facility]PIR[facility] THERAP[facility] [address] [place] [address] [facility] Protein [Mass/Vol] 4.7 g/dL Low 6.0-8.3 [facility] Comment on above: Performed By: #### L [id number] #### [facility] RESPIRATORY THERAPY [address] [place] [address] [facility] Sodium [Moles/Vol] 137 mmol/L Normal 136-145 [facility] Comment on above: Performed By: #### L [id number] #### [facility] RESPIRATORY THERAPY [address] [place] [address] [place] Urea nitrogen [Mass/Vol] 83 mg/dL High 7-25 [facility] Comment on above: Performed By: #### L [id number] #### [facility] RESPIRATORY THERAPY [address] [place] [address] [facility] UREA NITROGEN/CREATININE (MASS RATIO) IN SER/PLAS 18.9 Normal [facility] Comment on above: Performed By: #### L [id number] #### [facility] RESPIRATORY THERAPY [address] [place] [address] [facility] CONSULTon 01-09-2025 CONSULT Inpatient consult [...] day (alternates with 100mcg tablet) Past Week btgxgq-wdyrhbtq-dznhrhe (Creon) 24,000-76,000 -120,000 unit capsule Take 4 [...] primary Will follow Tram Hernandez MD Normal [facility] CONSULT ------- Attestation signed by Manfred [...] Faculty, Division of Nephrology, Department of Medicine [facility]. Nephrology Consult Note Patient : Sylvia Herrera; 79 y.o. Location: [id number]/3184-01 Attending: Jerad Norton MD Admit Date: 01/08/2025 Hospital Day: 1 Reason for Consult: DREW on CKD3B History of Present Illness: Sylvia Herrera is an 79 y.o. female who came from home with past medical history of nonischemic cardiomyopathy, s/p heart transplant in 2005 at [facility], CKD, 3B, anxiety, exocrine pancreatic sufficiency, hypothyroidism, hypertension and hyperlipidemia presented to [facility] as a direct transfer from [facility]. Patient initially presented there on 01/05/25 because of generalized weakness, nausea, vomiting and diarrhea over the last week. Patient also had decreased oral intake and had productive cough. Upon evaluation in the ER at [facility], patient was found to have left [...] with her history of heart transplant, her real estate investment analyst, Dr. Daly was contacted and agreed for the patient to be transferred to [facility] for nephrology consult. On my assessment, patient [...] 94.8 01/09/20 (more content not included)... Normal [facility] CONSULT ------- Attestation signed by Harjinder Reynaga MD at 01/10/2025 6:54 PM I evaluated, discussed and reviewed the patient on rounds with the medical coding technician. I agree with their assessment and plan as documented in the patient's progress note from today Cardiology Consult Note Reason for Consult: history of heart transplant HPI: Sylvia Herrera is a 79 y.o. female with a past medical history significant for nonischemic cardiomyopathy s/p LVAD placement followed by cardiac transplant in 2005 at [facility], required mediastinal re-exploration post transplant x 2 for bleeding, hypertension, chronic kidney disease, hypothyroidism, and pancreatic exocrine insufficiency. She does not have history of rejection. Last cath in 2017 negative and stress test in 2019 negative. Off note, patient was seen by [place] cardiology outpatient in September 2024 for shortness of breath. She was advised to get BNP and echo which were not performed. Patient presented to the [facility] with generalized weakness, productive cough, nausea, vomiting, diarrhea for past 1 week. She was found to have DREW and leukocytosis, was started on IV fluids and antibiotics. Her creatinine improved initially from 6 to 4 however worsened again. Reported echo showed normal EF. Cardiology was contacted overnight who recommended transfer to [facility] for further workup and nephrology consult. Troponin [...] every other day (alternates with 100mcg tablet) augxcl-wcstyjkq-buagnsz (Creon) 24,000-76,000 -120,000 unit capsule 4 capsules, [...] day (alternates with 100mcg tablet) Past Week zthlow-mnhtjnbe-yjbxqyq (Creon) 24,000-76,000 -120,000 unit capsule Take 4 [...] the morning. (more content not included)... Normal [facility] CT HEAD WO IV CONTRASTon CT [...] signed: Ortiz Adams. 9 Invalid Interpretation Code [facility] LACTIC ACID WITH 4 HOUR REFL EXon 01-09-2025 LACTATE (MMOL/L) IN SER/PLAS 0.6 mmol/L Normal 0.5-2.2 [facility] Comment on above: Performed By: #### L [id number] #### [facility] ([facility]) [address] [place] [address] LACTATE (MMOL/L) IN SER/PLAS 0.7 mmol/L Normal 0.5-2.2 [facility] Comment on above: Performed By: #### L [id number] #### [facility] ([facility]) [address] [place] [address] MANUAL DIFFERENTIALon 2024 ANISOCYTOSIS PRESENCE IN BLOOD BY LIGHT MICROSCOPY Moderate Normal [facility] Comment on above: Performed By: #### L [id number] ####[facility] ([facility])[address] [place] [address] BASOPHILS (10*3/UL) IN BLOOD BY CALCULATION 0.05 10*3/uL Normal 0.00-0.20 [facility] Comment on above: Performed By: #### L [id number] ####[facility] ([facility])[address] [place] [address] BASOPHILS/100 LEUKOCYTES IN BLOOD BY AUTOMATED COUNT 0.3 % Normal 0.0-1.0 [facility] Comment on above: Performed By: #### L [id number] ####[facility] ([facility])[address] [place] [address] EOSINOPHILS (10*3/UL) IN BLOOD BY CALCULATION 0.09 10*3/uL Normal 0.00-0.50 [facility] Comment on above: Performed By: #### L [id number] ####[facility] ([facility])[address] [place] [address] EOSINOPHILS/100 LEUKOCYTES IN BLOOD BY AUTOMATED COUNT 0.5 % Normal 0.0-6.0 [facility] Comment on above: Performed By: #### L [id number] ####[facility] ([facility])[address] [place] [address] IMMATURE GRANULOCYTES (10*3/UL) IN BLOOD BY CALCULATION 0.51 10*3/uL High 0.00-0.20 [facility] Comment on above: Performed By: #### L [id number] ####[facility] ([facility])[address] [place] [address] IMMATURE GRANULOCYTES/100 LEUKOCYTES IN BLOOD BY AUTOMATED COUNT 3.0 % High 0.0-1.0 [facility] Comment on above: Performed By: #### L [id number] ####[facility] ([facility])[address] [place] [address] LYMPHOCYTES (10*3/UL) IN BLOOD BY CALCULATION 0.83 10*3/uL Low 1.20-4.00 [facility] Comment on above: Performed By: #### L [id number] ####[facility] ([facility])[address] [place] [address] LYMPHOCYTES/100 LEUKOCYTES IN BLOOD BY AUTOMATED COUNT 4.9 % Low 20.0-45.0 [facility] Comment on above: Performed By: #### L [id number] ####[facility] ([facility])[address] [place] [address] MONOCYTES (10*3/UL) IN BLOOD BY CALCUATION 1.07 10*3/uL High 0.10-1.00 [facility] Comment on above: Performed By: #### L [id number] ####[facility] ([facility])[address] [place] [address] MONOCYTES/100 LEUKOCYTES IN BLOOD BY AUTOMATED COUNT 6.3 % Normal 5.0-12.0 [facility] Comment on above: Performed By: #### L [id number] ####[facility] ([facility])[address] [place] [address] NEUTROPHILS (10*3/UL) IN BLOOD BY CALCULATION 14.5 10*3/uL High 1.6-7.6 [facility] Comment on above: Performed By: #### L [id number] ####[facility] ([facility])[address] [place] [address] NEUTROPHILS/100 LEUKOCYTES IN BLOOD BY AUTOMATED COUNT 85.0 % High 40.0-72.0 [facility] Comment on above: Performed By: #### L [id number] ####[facility] ([facility])[address] [place] [address] POIKILOCYTOSIS (PRESENCE) IN BLOOD BY LIGHT MICROSCOPY Slight Normal [facility] Comment on above: Performed By: #### L [id number] ####[facility] ([facility])[address] [place] [address] POLYCHROMASIA IN BLOOD BY LIGHT MICROSCOPY Slight Normal [facility] Comment on above: Performed By: #### L [id number] ####[facility] ([facility])[address] [place] [address] MR BRAIN WO CONTRASTon 01-09 MR BRAIN [...] Luis Wilkins MD. 8 Invalid Interpretation Code [facility] MR HEAD ANGIO WO IV CONTRAST [...] Luis Wilkins MD. 8 Invalid Interpretation Code [facility] POCT GLUCOSE METER UNSOLICIT ED RESULTSon 01-09-2025 Glucose [Mass/Vol] 101 mg/dL Normal 70-105 [facility] Comment on above: Order Comment: Waive d Testing in the ED is performed under the ED CLIA certificate #[id number]. Result Comment: epro kt Performed By: #### L [id number] #### [facility] ([facility]) [address] [place] [address] TSH3 REFLEX TO FT4on 025 THYROTROPIN (MIU/L) IN SER/PLAS BY DETECTION LIMIT <= 0.05 MIU/L 0.86 mIU/L Normal 0.34-5.60 [facility] Comment on above: Performed By: #### L [id number] ####[facility] ([facility])[address] [place] [address] VENOUS BLOOD GAS WITH IONIZE D CALCIUMon 01-09-2025 Base excess Calc (BldV) [Moles/Vol] -17.99856 mmol/L Normal [facility] Comment on above: Performed By: #### L [id number] #### [facility] ([facility]) [address] [place] [address] CALCIUM IONIZED (MMOL/L) IN BLOOD 1.25 mmol/L Normal 1.15-1.33 [facility] Comment on above: Performed By: #### L [id number] #### [facility] ([facility]) [address] [place] [address] CO2 (BldV) [Partial pressure] 25 mm[Hg] Low 40-50 [facility] Comment on above: Performed By: #### L [id number] #### [facility] ([facility]) [address] [place] [address] HCO3 (Bld) [Moles/Vol] 9.3 mmol/L Normal [facility] Comment on above: Performed By: #### L [id number] #### [facility] ([facility]) [address] [place] [address] Oxygen (BldV) [Partial pressure] 69 mm[Hg] High 35-45 [facility] Comment on above: Performed By: #### L [id number] #### [facility] ([facility]) [address] [place] [address] OXYGEN SATURATION (%) IN VENOUS BLOOD 96.1 % High 65.0-75.0 [facility] Comment on above: Performed By: #### L [id number] #### [facility] ([facility]) [address] [place] [address] PH OF VENOUS BLOOD 7.18 Invalid Interpretation Code 7.31-7.41 [facility] Comment on above: Performed By: #### L [id number] #### [facility] ([facility]) [address] [place] [address] APTTon 01-08-2025 ACTIVATED PARTIAL THROMBOPLASTIN TIME IN PPP BY COAGULATION ASSAY 34.0 Seconds Normal 25.0-35.0 [facility] Comment on above: Result Comment: Clin ical significance of the APTT is questionable in the presence of heparin. Performed By: #### L [id number] #### [facility] ([facility]) [address] [place] [address] B-TYPE NATRIURETIC PEPTIDEon 01-08-2025 Natriuretic peptide B (Bld) [Mass/Vol] 563 pg/mL High 0-100 [facility] Comment on above: Performed By: #### L [id number] #### [facility] ([facility]) [address] [place] [address] BASIC METABOLIC PANELon Anion gap [Moles/Vol] 13 mmol/L Normal 7-20 [facility] Comment on above: Performed By: #### L [id number] #### [facility] ([facility]) [address] [place] [address] Calcium [Mass/Vol] 7.4 mg/dL Low 8.6-10.3 [facility] Comment on above: Performed By: #### L [id number] #### [facility] ([facility]) [address] [place] [address] Chloride [Moles/Vol] 118 mmol/L High 98-107 [facility] Comment on above: Performed By: #### L [id number] #### [facility] ([facility]) [address] [place] [address] CO2 [Moles/Vol] 10 mmol/L Invalid Interpretation Code - [facility] Comment on above: Performed By: #### L [id number] #### [facility] ([facility]) [address] [place] [address] Creatinine [Mass/Vol] 4.43 mg/dL High 0.60-1.20 [facility] Comment on above: Performed By: #### L [id number] #### [facility] ([facility]) [address] [place] [address] GLOMERULAR FILTRATION RATE ML/MIN/1.73 SQ M.PREDICTED 9.5 mL/min/1.73m*2 Low >60.0 [facility] Comment on above: Result Comment: The [facility]???s estimated glomerular filtration rate (eGFR) will [...] individuals. Performed By: #### L [id number] #### [facility] ([facility]) [address] [place] [address] Glucose [Mass/Vol] 135 mg/dL High 70-100 [facility] Comment on above: Performed By: #### L [id number] #### [facility] ([facility]) [address] [place] [address] Potassium [Moles/Vol] 5.1 mmol/L Normal 3.5-5.1 [facility] Comment on above: Performed By: #### L [id number] #### [facility] ([facility]) [address] [place] [address] Sodium [Moles/Vol] 136 mmol/L Normal 136-145 [facility] Comment on above: Performed By: #### L [id number] #### [facility] ([facility]) [address] [place] [address] Urea nitrogen [Mass/Vol] 83 mg/dL High 7-25 [facility] Comment on above: Performed By: #### L [id number] #### [facility] ([facility]) [address] [place] [address] UREA NITROGEN/CREATININE (MASS RATIO) IN SER/PLAS 18.7 Normal [facility] Comment on above: Performed By: #### L [id number] #### [facility] ([facility]) [address] [place] [address] CBC WITH AUTO DIFFERENTIALon 01-08-2025 Basophils (Bld) [#/Vol] 0.03 10*3/uL Normal 0.00-0.20 [facility] Comment on above: Performed By: #### L [id number] #### [facility] ([facility]) [address] [place] [address] Basophils/100 WBC (Bld) 0.2 % Normal 0.0-1.0 [facility] Comment on above: Performed By: #### L [id number] #### [facility] ([facility]) [address] [place] [address] Eosinophils (Bld) [#/Vol] 0.07 10*3/uL Normal 0.00-0.50 [facility] Comment on above: Performed By: #### L [id number] #### [facility] ([facility]) [address] [place] [address] Eosinophils/100 WBC (Bld) 0.5 % Normal 0.0-6.0 [facility] Comment on above: Performed By: #### L [id number] #### [facility] ([facility]) [address] [place] [address] Erythrocyte distribution width (RBC) [Ratio] 15.3 % High 11.5-15.0 [facility] Comment on above: Performed By: #### L [id number] #### [facility] ([facility]) [address] [place] [address] ERYTHROCYTE MEAN CORPUSCULAR HEMOGLOBIN CONCENTRATION (G/DL) BY AUTOMATED 31.9 g/dL Low 32.0-35.0 [facility] Comment on above: Performed By: #### L [id number] #### [facility] ([facility]) [address] [place] [address] Hematocrit (Bld) [Volume fraction] 30.4 % Low 36.0-48.0 [facility] Comment on above: Performed By: #### L [id number] #### [facility] ([facility]) [address] [place] [address] Hemoglobin (Bld) [Mass/Vol] 9.7 g/dL Low 12.0-15.0 [facility] Comment on above: Performed By: #### L [id number] #### [facility] ([facility]) [address] [place] [address] Immature granulocytes (Bld) [#/Vol] 0.48 10*3/uL High 0.00-0.20 [facility] Comment on above: Performed By: #### L [id number] #### [facility] ([facility]) [address] [place] [address] Immature granulocytes/100 WBC (Bld) 3.2 % High 0.0-1.0 [facility] Comment on above: Performed By: #### L [id number] #### [facility] ([facility]) [address] [place] [address] Lymphocytes (Bld) [#/Vol] 0.59 10*3/uL Low 1.20-4.00 [facility] Comment on above: Performed By: #### L [id number] #### [facility] ([facility]) [address] [place] [address] Lymphocytes/100 WBC (Bld) 3.9 % Low 20.0-45.0 [facility] Comment on above: Performed By: #### L [id number] #### [facility] ([facility]) [address] [place] [address] MCH (RBC) [Entitic mass] 29.3 pg Normal 27.0-33.0 [facility] Comment on above: Performed By: #### L [id number] #### [facility] ([facility]) [address] [place] [address] MCV (RBC) [Entitic vol] 91.8 fL Normal 82.0-98.0 [facility] Comment on above: Performed By: #### L [id number] #### [facility] ([facility]) [address] [place] [address] Monocytes (Bld) [#/Vol] 0.66 10*3/uL Normal 0.10-1.00 [facility] Comment on above: Performed By: #### L [id number] #### [facility] ([facility]) [address] [place] [address] Monocytes/100 WBC (Bld) 4.3 % Low 5.0-12.0 [facility] Comment on above: Performed By: #### L [id number] #### [facility] ([facility]) [address] [place] [address] Neutrophils (Bld) [#/Vol] 13.40 10*3/uL High 1.60-7.60 [facility] Comment on above: Performed By: #### L [id number] #### [facility] ([facility]) [address] [place] [address] Neutrophils/100 WBC (Bld) 87.9 % High 40.0-72.0 [facility] Comment on above: Performed By: #### L [id number] #### [facility] ([facility]) [address] [place] [address] NRBC (PER 100 WBCS) BY AUTOMATED COUNT 0.0 % Normal 0 [facility] Comment on above: Performed By: #### L [id number] #### [facility] ([facility]) [address] [place] [address] PLATELETS (10*3/UL) IN BLOOD AUTOMATED COUNT 197 10*3/uL Normal 150-400 [facility] Comment on above: Performed By: #### L [id number] #### [facility] ([facility]) [address] [place] [address] RBC (Bld) [#/Vol] 3.31 10*6/uL Low 3.80-5.00 [facility] Comment on above: Performed By: #### L [id number] #### [facility] ([facility]) [address] [place] [address] WBC (Bld) [#/Vol] 15.23 10*3/uL High 4.00-10.60 [facility] Comment on above: Performed By: #### L [id number] #### [facility] ([facility]) [address] [place] [address] HEPATIC FUNCTION PANELon Albumin [Mass/Vol] 2.9 g/dL Low 3.5-5.7 [facility] Comment on above: Performed By: #### L [id number] #### [facility] ([facility]) [address] [place] [address] ALP [Catalytic activity/Vol] 168 U/L High 34-104 [facility] Comment on above: Performed By: #### L [id number] #### [facility] ([facility]) [address] [place] [address] ALT [Catalytic activity/Vol] 26 U/L Normal 7-52 [facility] Comment on above: Performed By: #### L [id number] #### [facility] ([facility]) [address] [place] [address] AST [Catalytic activity/Vol] 20 U/L Normal 13-39 [facility] Comment on above: Performed By: #### L [id number] #### [facility] ([facility]) [address] [place] [address] Bilirubin [Mass/Vol] 0.3 mg/dL Normal 0.3-1.0 [facility] Comment on above: Performed By: #### L [id number] #### [facility] ([facility]) [address] [place] [address] Magnesium [Mass/Vol] 0.1 mg/dL Normal 0-0.2 [facility] Comment on above: Performed By: #### L [id number] #### [facility] ([facility]) [address] [place] [address] Protein [Mass/Vol] 4.8 g/dL Low 6.0-8.3 [facility] Comment on above: Performed By: #### L [id number] #### [facility] ([facility] [address] [place] [address] MAGNESIUMon 01-08-2025 Magnesium [Mass/Vol] 1.9 mg/dL Normal 1.9-2.7 [facility] Comment on above: Performed By: #### L [id number] #### [facility] ([facility]) [address] [place] [address] PHOSPHORUSon 01-08-2025 Magnesium [Mass/Vol] 4.9 mg/dL Normal 2.5-5.0 [facility] Comment on above: Performed By: #### L [id number] #### [facility] ([facility]) [address] [facility] [address] PROTIME-INRon 01-08-2025 INR IN PPP BY COAGULATION ASSAY 1.44 High 0.90-1.10 [facility] Comment on above: Result Comment: ACCC [...] RANGE. CHEST 1995;108:[id number]. Performed By: #### L [id number] #### [facility] ([facility]) [address] [place] [address] PROTHROMBIN TIME (PT) IN PPP BY COAGULATION ASSAY 17.4 Seconds High 12.3-14.8 [facility] Comment on above: Performed By: #### L [id number] #### [facility] ([facility]) [address] [place] [address] TROPONIN Ion 01-08-2025 Troponin I.cardiac [Mass/Vol] 0.01 ng/mL Normal 0.00-0.04 [facility] Comment on above: Performed By: #### L [id number] #### [facility] ([facility]) [address] [place] [address] VENOUS BLOOD GAS WITH IONIZE D CALCIUMon 01-08-2025 Base excess Calc (BldV) [Moles/Vol] -18.68655 mmol/L Normal [facility] Comment on above: Performed By: #### L [id number] #### [facility] [address] [place] [address] [place] CALCIUM IONIZED (MMOL/L) IN BLOOD 1.28 mmol/L Normal 1.15-1.33 [facility] Comment on above: Performed By: #### L [id number] #### [facility] [address] [place] [address] [place] CO2 (BldV) [Partial pressure] 28 mm[Hg] Low 40-50 [facility] Comment on above: Performed By: #### L [id number] #### [facility] [address] [place] [address] [place] HCO3 (Bld) [Moles/Vol] 9.1 mmol/L Normal [facility] Comment on above: Performed By: #### L [id number] #### [facility] [address] [place] [address] [place] Oxygen (BldV) [Partial pressure] 53 mm[Hg] High 35-45 [facility] Comment on above: Performed By: #### L [id number] #### [facility] [address] [place] [address] [place] OXYGEN SATURATION (%) IN VENOUS BLOOD 85.0 % High 65.0-75.0 [facility] Comment on above: Performed By: #### L [id number] #### [facility] [address] [place] [address] [facility] PH OF VENOUS BLOOD 7.12 Invalid Interpretation Code 7.31-7.41 [facility] Comment on above: Performed By: #### L [id number] #### [facility] [address] [place] [address] [facility] 36on 10-01-2024 36 Regarding echo resul t [...] Dr. Daly on 10/26/2024. Patient verbalized understanding. [facility] Office Visiton 09-14-2024 Follow-up visit [id number] Sylvia Herrera 1945 F Date Provider Department Center 09/14/2024 ANISHA JACOBS JULIAN Hernandez Family History Family history unknown: Yes Level of Service:43151 AL OFFICE/OUTPATIENT ESTABLISHED MOD MDM 30 MIN [facility] 36on 07-22-2024 36 Patient made aware. I sent her tacrolimus order in the mail for her to have done at [facility] 1 week prior to seeing Dr. Daly for follow up on 09/14/2024. She verbalized understanding. [facility] 36on 07-21-2024 36 Regarding tacrolimus level drawn on 07/07/2024: MD Kaela Smith MA Did she have the echo? Her tacrolimus level is slightly high. I want a repeat in 2 months. *Dr. 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 Will you review this and then I will call Sylvia. Thanks. [facility] Office Visiton 07-01-2024 Follow-up visit [id number] Sylvia Herrera 1945 F Date Provider Department Center 07/01/2024 ANISHA JACOBS Micheal David Family History Family history unknown: Yes Level of Service:73499 AL OFFICE/OUTPATIENT ESTABLISHED MOD MDM 30 MIN Normal [facility] Activated partial thrombopla stin time (aPTT) in platelet poor plasma by coagulation aOrdered By: NON STAFF on 06-18-2024 aPTT Coag (PPP) [Time] 31.8 s 25.1-36.5 [facility] Comment on above: A hematocrit value g reater than 55% may lead to inaccurate results in coagulation testing. Patients having hematocrit values >55% require a special collection tube for coagulation studies. Please contact the laboratory at [phone] for redraw instructions. INR in Platelet poor plasma by Coagulation assayOrdered By: NON STAFF on 06-18-2024 INR Coag (PPP) [Relative time] 1.3 {INR} Normal [facility] Comment on above: INR Therapeutic [...] Performed By: #### P TT, PT #### [facility] [address] [place] [address] [place] Partial Thromboplastin Timeo n 06-18-2024 aPTT Coag (Bld) [Time] 31.8 s Normal 25.1-36.5 [facility] Comment on above: Result Comment: A he matocrit value greater than 55% may lead to inaccurate results in coagulation testing. Patients having hematocrit values >55% require a special collection tube for coagulation studies. Please contact the laboratory at [phone] for redraw instructions. PERFORMED BY: [place] [address] PATHOLOGIST COMPLETIONS ENGINEER ANDREIA ARRINGTON M.D. Performed By: #### P TT, PT #### [facility] [address] [place] [address] Prothrombin time (PT)Ordered By: NON STAFF on 06-18-2024 PT Coag (PPP) [Time] 14.4 s High 9.0-12.9 [facility] Comment on above: A hematocrit value g reater than 55% may lead to inaccurate results in coagulation testing. Patients having hematocrit values >55% require a special collection tube for coagulation studies. Please contact the laboratory at [phone] for redraw instructions. Result Comment: A he matocrit value greater than 55% may lead to inaccurate results in coagulation testing. Patients having hematocrit values >55% require a special collection tube for coagulation studies. Please contact the laboratory at [phone] for redraw instructions. Performed By: #### P TT, PT #### [place] [id number] [facility] 36on 04-06-2024 36 I reviewed [...] labs as ordered at last visit. Normal [facility] Telephoneon 04-06-2024 Telephone [id number] Sylvia Herrera 1945 F Date Provider Department Center 04/06/2024 ANISHA JACOBS JULIAN [facility] Family History Family history unknown: Yes Normal [facility] CHEMISTRYOrdered By: SYSTEM SYSTEM on 04-08-2023 [...] 42 mL/min/1.73 m2 Low >=59mL/min/ 1.73 m2 [facility] [place] S Glucose [Mass/Vol] 124 mg/dL Normal [...] 35 mL/min/1.73 m2 Low >=59mL/min/ 1.73 m2 [place] [facility] [facility] Chem S Glucose [Mass/Vol] 139 mg/dL Normal [...] AGon 03-05 INFLUANEGH SEE BELOW Normal [facility] Comment on above: Result Comment: Nega tive for Flu A protein angiten. Infection due to Flu A cannot be ruled out. Flu A angiten in the sample may be below the detection limit of the test. Performed By: #### E RUR #### [facility] [address] [address] [address] Hardeep Rivera [facility] SEE BELOW Normal [facility] Comment on above: Result Comment: Nega tive for Flu B protein antigen. Infection due to Flu B cannot be ruled out. Flu B antigen in the sample may be below the detection limit of the test. Performed By: #### E RUR #### [facility] [address] [place] [address] Dr. Hardeep Rivera INFLUENZA A AG Negative Normal NEGATIVE SEE COMMENT [facility] Comment on above: Performed By: #### E RUR #### [facility] [address] [place] [address] Dr. Hardeep Rivera INFLUENZA B AG Negative Normal NEGATIVE SEE COMMENT [facility] Comment on above: Performed By: #### E RUR #### [facility] [address] [place] [address] Dr. Hardeep Rivera SYMPTOMATIC COVID-19 ANTIGEN on 03-05-2023 EUA Statement SEE BELOW Normal [facility] Comment on above: Result Comment: [...] revoked sooner. Performed By: #### C VDAGS ####[facility] [address] [address]Dr. Hardeep Rivera SARS-CoV-2 (COVID-19) RNA ULICES+probe Ql (Unsp spec) Positive Abnormal NEGATIVE [facility] Comment on above: Performed By: #### C VDAGS ####[facility] [address] [address]Dr. Hardeep Rivera FK506 (TACROLIMUS) WHOLE BLO ODon 02-28-2023 Tacrolimus (FK506), Blood 5.8 ng/mL Normal 2.0-20.0 [facility] Comment on above: Result Comment: Trou gh (immediately following transplant) 15.0 . Trough (steady state, 2 weeks or more after transplant): 3.0 - 8.0 . Performed by LC-MS/MS technology. Performed By: #### F [id number] ####[facility] [address] [address]Dr. Hardeep Rivera CBC AUTO DIFFon 02-14-2023 BASO # 0.0 103/ul Normal 0.0-0.1 [facility] Comment on above: Performed By: #### RANDALL OLSON #### [facility] [address] [place] [address] Dr. Hardeep Rivera Basophils/100 WBC (Bld) 0.5 % Normal 0.2-2.0 [facility] Comment on above: Performed By: #### RANDALL OLSON #### [facility] [address] [place] [address] Dr. Hardeep Rivera EO # 0.2 103/ul Normal 0.0-0.7 [facility] Comment on above: Performed By: #### RANDALL OLSON #### [facility] [address] [place] [address] Dr. Hardeep Rivera Eosinophils/100 WBC (Bld) 3.5 % Normal 0.9-7.0 [facility] Comment on above: Performed By: #### RANDALL OLSON #### [facility] [address] [place] [address] Dr. Hardeep Rivera Erythrocyte distribution width (RBC) [Ratio] 12.3 % Normal 11.0-15.0 [facility] Comment on above: Performed By: #### RANDALL OLSON #### [facility] [address] [place] [address] Dr. Hardeep Rivera Hematocrit (Bld) [Volume fraction] 38.7 % Normal 36.0-48.0 [facility] Comment on above: Performed By: #### Deedee PINON UMICRO #### [facility] [address] [place] [address] Dr. Hardeep Rivera Hemoglobin (Bld) [Mass/Vol] 12.6 g/dL Normal 12.0-16.0 [facility] Comment on above: Performed By: #### Deedee PINON, UMICRO #### [facility] [address] [place] [address] Dr. Hardeep Rivera IG # 0.03 10e3/ul Normal 0.00-0.03 [facility] Comment on above: Performed By: #### Deedee PINON UMICRO #### [facility] [address] [place] [address] Dr. Hardeep Rivera IG % 0.5 % Normal 0.0-0.5 [facility] Comment on above: Performed By: #### Deedee PINON UMICRO #### [facility] [address] [place] [address] Dr. Hardeep Rivera LYMPH # 0.8 103/ul Critically low 1.2-3.8 [facility] Comment on above: Performed By: #### Deedee PINON, UMICRO #### [facility] [address] [place] [address] Dr. Hardeep Rivera Lymphocytes/100 WBC (Bld) 13.2 % Critically low 20.5-60.0 [facility] Comment on above: Performed By: #### Deedee PINON UMICRO #### [facility] [address] [place] [address] Dr. Hardeep Rivera MANUAL DIFF REQ NO Normal [facility] Comment on above: Performed By: #### Deedee PINON, UMICRO #### [facility] [address] [place] [address] Dr. Hardeep Rivera MCH (RBC) [Entitic mass] 28.3 pg Normal 26.7-34.0 [facility] Comment on above: Performed By: #### HARI OLSONRO #### [facility] [address] [place] [address] Dr. Hardeep Rivera MCHC (RBC) [Mass/Vol] 32.6 g/dL Normal 29.9-35.2 [facility] Comment on above: Performed By: #### AKSHAT OLSONICRO #### [facility] [address] [place] [address] Dr. Hardeep Rivera MCV (RBC) [Entitic vol] 87.0 fL Normal 81.0-99.0 [facility] Comment on above: Performed By: #### HARI OLSONRO #### [facility] [address] [place] [address] Dr. Hardeep Rivera MONO # 0.8 103/ul Normal 0.3-0.8 [facility] Comment on above: Performed By: #### HARI OLSONRO #### [facility] [address] [place] [address] Dr. Hardeep Rivera Monocytes/100 WBC (Bld) 12.9 % Critically high 1.7-12.0 [facility] Comment on above: Performed By: #### HARI OLSONRO #### [facility] [address] [place] [address] Dr. Hardeep Rivera NEUT # 4.4 103/ul Normal 1.4-6.5 [facility] Comment on above: Performed By: #### HARI OLOSNRO #### [facility] [address] [place] [address] Dr. Hardeep Rivera Neutrophils/100 WBC (Bld) 69.4 % Normal 43.0-75.0 [facility] Comment on above: Performed By: #### HARI OLSONRO #### [facility] [address] [place] [address] Dr. Hardeep Rivera Platelet mean volume (Bld) [Entitic vol] 9.0 fL Critically low 9.5-13.5 [facility] Comment on above: Performed By: #### HARI OLSONRO #### [facility] [address], [place] [address] Dr. Hardeep Rivera PLT 205 103/ul Normal 150-450 [facility] Comment on above: Performed By: #### RANDALL OLSON #### [facility] [address], [place] [address] Dr. Hardeep Rivera RBC 4.45 106/ul Normal 4.20-5.40 [facility] Comment on above: Performed By: #### RANDALL OLSON #### [facility] [address], [place] [address] Dr. Hardeep Rivera WBC 6.3 103/ul Normal 4.0-11.0 [facility] Comment on above: Performed By: #### RANDALL OLSON #### [facility] [id number] Hardeep Rivera CT HEAD WO CONon [...] CAMERON NELSON Date: 2023-02-14 15:46 Normal [facility] ER URINE PROFILEon 3 Bilirubin Ql (U) Negative Normal NEGATIVE [facility] Comment on above: Performed By: #### Deedee PINON UMICRO #### [facility] [address] [place] [address] Dr. Hardeep Rivera Clarity (U) CLEAR Normal CLEAR [facility] Comment on above: Performed By: #### Deedee PINON UMICRO #### [facility] [address] [place] [address] Dr. Hardeep Rivera Color (U) LT. YELLOW Normal YELLOW [facility] Comment on above: Performed By: #### Deedee PINON UMICRO #### [facility] [address] [place] [address] Dr. Hardeep FRANCIS A micrscopic examina tion will be performed if indicated. Normal [facility] Comment on above: Performed By: #### Deedee PINON UMICRO #### [facility] [address] [place] [address] Dr. Hardeep Rivera Glucose Ql (U) Negative Normal NEGATIVE [facility] Comment on above: Performed By: #### Deedee PINON UMICRO #### [facility] [address] [place] [address] Dr. Hardeep Rivera Hemoglobin Ql (U) TRACE-INTACT Abnormal NEGATIVE [facility] Comment on above: Performed By: #### Deedee PINON UMICRO #### [facility] [address] [place] [address] Dr. Hardeep Rivera Ketones Ql (U) Negative Normal NEGATIVE [facility] Comment on above: Performed By: #### Deedee PINON UMICRO #### [facility] [address] [place] [address] Dr. Hardeep Rivera LEUKOCYTES Negative Normal NEGATIVE [facility] Comment on above: Performed By: #### Deedee PINON UMICRO #### [facility] [address] [place] [address] Dr. Hardeep Rivera Nitrite Ql (U) Negative Normal NEGATIVE [facility] Comment on above: Performed By: #### Deedee PINON UMICRO #### [facility] [address] [address] [address] Hardeep Rivera pH (U) 7.0 [pH] Normal 5-9 [facility] Comment on above: Performed By: #### RANDALL OLSON #### [facility] [address] [address] [address] Hardeep Rivera Protein (U) [Mass/Vol] 30 mg/dL Abnormal NEGATIVE/ TRACE [facility] Comment on above: Performed By: #### RANDALL OLSON #### [facility] [address] [address] [address] Hardeep Rivera SPEC GRAVITY 1.010 Normal 1.005-<=1.0 [facility] Comment on above: Performed By: #### RANDALL OLSON #### [facility] [address] [place] [address] Dr. Hardeep Rivera UR MICRO IND INDICATED Normal [facility] Comment on above: Performed By: #### RANDALL OLSON #### [facility] [address] [place] [address] Dr. Hardeep Rivera Urobilinogen Qn (U) 0.2 {Kevon'U}/dL Normal 0.2 - 1. 0 [facility] Comment on above: Performed By: #### RANDALL OLSON #### [facility] [address] [place] [address] Dr. Hardeep Rivera PROF 14(COMP METB)on 023 Albumin [Mass/Vol] 3.5 g/dL Normal 3.4-5.0 [facility] Comment on above: Performed By: #### H STROPN, CMP, TSH ####[facility] [address] [address]Dr. Hardeep Rivera Albumin/Globulin [Mass ratio] 1.2 {ratio} Normal [facility] Comment on above: Performed By: #### H STROPN, CMP, TSH ####[facility] [address] [address]Dr. Hardeep Rivera ALP [Catalytic activity/Vol] 153 U/L Critically high 46-116 [facility] Comment on above: Performed By: #### H STROPN, CMP, TSH ####[facility] [address] [address]Dr. Hardeep Rivera ALT [Catalytic activity/Vol] 21 U/L Normal 14-59 [facility] Comment on above: Performed By: #### H STROPN, CMP, TSH ####[facility] [address] [address]Dr. Hardeep Rivera Anion gap [Moles/Vol] 9.3 mmol/L Normal [facility] Comment on above: Performed By: #### H STROPN, CMP, TSH ####[facility] [address] [address]Dr. Hardeep Rivera AST [Catalytic activity/Vol] 23 U/L Normal 15-37 [facility] Comment on above: Performed By: #### H STROPN, CMP, TSH ####[facility] [address] [address]Dr. Hardeep Rivera Bilirubin [Mass/Vol] 0.6 mg/dL Normal 0.2-1.0 [facility] Comment on above: Performed By: #### H STRONATHANIEL, CMP, TSH ####[facility] [address] [place], [place] [address]Dr. Hardeep Rivera Calcium [Mass/Vol] 8.4 mg/dL Critically low 8.5-10.1 [facility] Comment on above: Performed By: #### H STROPN, CMP, TSH ####[facility] [address] [address]Dr. Hardeep Rivera Chloride [Moles/Vol] 96 mmol/L Critically low 98-107 [facility] Comment on above: Performed By: #### H STROPN, CMP, TSH ####[facility] [address] [address]Dr. Hardeep Rivera CO2 [Moles/Vol] 29.3 mmol/L Normal 21.0-32.0 [facility] Comment on above: Performed By: #### H STROPN, CMP, TSH ####[facility] [address] [address]Dr. Hardeep Rivera Creatinine [Mass/Vol] 1.16 mg/dL Critically high 0.55-1.02 [facility] Comment on above: Performed By: #### H STROPN, CMP, TSH ####[facility] [address] [address]Dr. Hardeep Miguel EGFR-AF [place] 55 mL/min/1.73m2 Critically low >=60 [facility] Comment on above: Performed By: #### H STROPN, CMP, TSH ####[facility] [address] [address]Dr. Hardeep Miguel EGFR-NON AF [place] 45 mL/min/1.73m2 Critically low >=60 [facility] Comment on above: Performed By: #### H STROPN, CMP, TSH ####[facility] [address] [address]Dr. Hardeep Rivera Globulin (S) [Mass/Vol] 2.9 g/dL Normal [facility] Comment on above: Performed By: #### H STROPN, CMP, TSH ####[facility] [address] [address]Dr. Hardeep Rivera Glucose [Mass/Vol] 105 mg/dL Normal 74-106 [facility] Comment on above: Performed By: #### H STROPN, CMP, TSH ####[facility] [address] [address]Dr. Preethiarabella Rivera Potassium [Moles/Vol] 4.6 mmol/L Normal 3.5-5.1 [facility] Comment on above: Performed By: #### H STROPN, CMP, TSH ####[facility] [address] [address]Dr. Hardeep Rivera Protein [Mass/Vol] 6.4 g/dL Normal 6.4-8.2 [facility] Comment on above: Performed By: #### H STROPN, CMP, TSH ####[facility] [address] [address]Dr. Hardeep Rivera Sodium [Moles/Vol] 130 mmol/L Critically low 136-145 [facility] Comment on above: Performed By: #### H TYLER CMP, TSH ####[facility] [address] [address]Dr. Hardeep Rivera Urea nitrogen [Mass/Vol] 27.0 mg/dL Critically high 7.0-18.0 [facility] Comment on above: Performed By: #### H TYLER CMP, TSH ####[facility] [address] [place], [place] [address]Dr. Hardeep Rivera Urea nitrogen/Creatinine [Mass ratio] 23.3 mg/mg Normal [facility] Comment on above: Performed By: #### H GLADIS SCOTT, TSH ####[facility] [address] [place], [place] [address]Dr. Hardeep Rivera PROTIMEon 02-14-2023 INR Coag (PPP) [Relative time] 1.07 {INR} Normal [facility] Comment on above: Performed By: #### P T, PTT ####[facility] [address] [place], [place] [address]Dr. Hardeep Rivera INR GUIDELINES SEE BELOW Normal [facility] Comment on above: Result Comment: EDMUND RED INR: 2.0 - 3.0 CONDITIONS NOT LISTED BELOW 2.5 - 3.5 FOR PROSTHETIC HEART VALVE REPLACEMENT 2.5 - 3.5 RECURRENT THROMBOSIS Performed By: #### P T, PTT ####[facility] [address] [place], [place] [address]Dr. Hardeep Rivera PT Coag (PPP) [Time] 11.3 s Normal 9.0-11.6 [facility] Comment on above: Performed By: #### P T, PTT ####[facility] [address] [place], [place] [address]Dr. Hardeep Rivera PTTon 02-14-2023 aPTT Coag (Bld) [Time] 29.1 s Normal 22.3-36.2 [facility] Comment on above: Performed By: #### P T, PTT ####[facility] [address] [place], [place] [address]Dr. Hardeep Rivera TROPONIN, HIGH SENSITIVITYon 02-14-2023 HSTROP 10.4 pg/mL Normal 4.0-51.3 [facility] Comment on above: Result Comment: CUT- OFF POINTS HAVE BEEN ESTABLISHED BASED ON THE FOURTH UNIVERSAL DEFINITIONS OF MYOCARDIAL INFARCTION. THE UPPER REFERENCE LIMIT (URL) OF TROPONIN, DEFINED THE 99TH PERCENTILE OF cTnI DISTRIBUTION IN A REFERENCE POPULATION, HAS BEEN CONFIRMED THE DECISION THRESHOLD FOR AL DIAGNOSIS. Performed By: #### H GLADIS SCOTT, TSH ####[facility] [address] [address]Dr. Hardeep Rivera TSHon 02-14-2023 TSH 1.237 uIU/mL Normal 0.358-3.740 [facility] Comment on above: Performed By: #### H GLADIS SCOTT, TSH ####[facility] [address] [address]Dr. Hardeep Rivera URINE MICROSCOPIC ONLYon BACTERIA NONE SEEN Normal NONE SEEN [facility] Comment on above: Performed By: #### Deedee PINON UMICRO #### [facility] [address] [place] [address] Dr. Hardeep Rivera Bacteria identified Cx Nom (U) NOT INDICATED Normal [facility] Comment on above: Performed By: #### Deedee PINON UMICRO #### [facility] [address] [place] [address] Dr. Hardeep Rivera CAST NONE SEEN Normal NONE SEEN [facility] Comment on above: Performed By: #### Deedee PINON UMICRO #### [facility] [address] [address] [address] Hardeep Rivera Crystals LM Nom (Urine sed) NONE SEEN Normal NONE SEEN [facility] Comment on above: Performed By: #### Deedee PINON UMICRO #### [facility] [address] [place] [address] Dr. Hardeep Rivera Epithelial cells LM Ql (Urine sed) NONE SEEN Normal NONE SEEN /RARE [facility] Comment on above: Performed By: #### Deedee PINON UMICRO #### [facility] [address] [place] [address] Dr. Hardeep Rivera MUCOUS NONE SEEN Normal NONE SEEN [facility] Comment on above: Performed By: #### E RANDALL PINON #### [facility] [address] [address] [address] Hardeep Rivera RBC 0-2 Normal 0-2 [facility] Comment on above: Performed By: #### E RUR UMICRO #### [facility] [id number] Hardeep Rivera WBC NONE SEEN Normal NONE SEEN [facility] Comment on above: Performed By: #### E HARI PINONRO #### [facility] [id number] Hardeep Rivera XR CHEST 1 Von [...] JAZLYN DUBOSE Date: 2023-02-14 15:50 Normal [facility] FK506 (TACROLIMUS) WHOLE BLO ODon 02-13-2023 Tacrolimus (FK506), Blood 1.4 ng/mL Critically low 2.0-20.0 [facility] Comment on above: Result Comment: Trou gh (immediately following transplant) 15.0 . Trough (steady state, 2 weeks or more after transplant): 3.0 - 8.0 . Performed by LC-MS/MS technology. Performed By: #### E RUR #### [facility] [address] [address] [address] Hardeep Rivera PROF 14(COMP METB)on 023 Albumin [Mass/Vol] 3.5 g/dL Normal 3.4-5.0 [facility] Comment on above: Performed By: #### C MP ####[facility] [address] [address]Dr. Hardeep Rivera Albumin/Globulin [Mass ratio] 1.2 {ratio} Normal [facility] Comment on above: Performed By: #### C MP ####[facility] [address] [address]Dr. Hardeep Rivera ALP [Catalytic activity/Vol] 149 U/L Critically high 46-116 [facility] Comment on above: Performed By: #### C MP ####[facility] [address] [address]Dr. Hardeep Rivera ALT [Catalytic activity/Vol] 19 U/L Normal 14-59 [facility] Comment on above: Performed By: #### C MP ####[facility] [address] [address]Dr. Hardeep Rivera Anion gap [Moles/Vol] 11.7 mmol/L Normal [facility] Comment on above: Performed By: #### C MP ####[facility] [address] [place], [place] [address]Dr. Hardeep Rivera AST [Catalytic activity/Vol] 27 U/L Normal 15-37 [facility] Comment on above: Performed By: #### C MP ####[facility] [address] [place], [place] [address]Dr. Hardeep Rivera Bilirubin [Mass/Vol] 0.6 mg/dL Normal 0.2-1.0 [facility] Comment on above: Performed By: #### C MP ####[facility] [address] [place], [place] [address]Dr. Hardeep Rivera Calcium [Mass/Vol] 8.5 mg/dL Normal 8.5-10.1 [facility] Comment on above: Performed By: #### C MP ####[facility] [address] [place], [place] [address]Dr. Hardeep Rivera Chloride [Moles/Vol] 96 mmol/L Critically low 98-107 [facility] Comment on above: Performed By: #### C MP ####[facility] [address] [place], [place] [address]Dr. Hardeep Rivera CO2 [Moles/Vol] 28.1 mmol/L Normal 21.0-32.0 [facility] Comment on above: Performed By: #### C MP ####[facility] [address] [address]Dr. Hardeep Rivera Creatinine [Mass/Vol] 1.24 mg/dL Critically high 0.55-1.02 [facility] Comment on above: Performed By: #### C MP ####[facility] [address] [address]Dr. Hardeep Rivera EGFR-AF [place] 51 mL/min/1.73m2 Critically low >=60 [facility] Comment on above: Performed By: #### C MP ####[facility] [address] [address]Dr. Hardeep Rivera EGFR-NON AF [place] 42 mL/min/1.73m2 Critically low >=60 [facility] Comment on above: Performed By: #### C MP ####[facility] [address] [address]Dr. Hardeep Rivera Globulin (S) [Mass/Vol] 3.0 g/dL Normal [facility] Comment on above: Performed By: #### C MP ####[facility] [address] [address]Dr. Hardeep Rivera Glucose [Mass/Vol] 141 mg/dL Critically high 74-106 [facility] Comment on above: Performed By: #### C MP ####[facility] [address] [address]Dr. Hardeep Rivera Potassium [Moles/Vol] 4.8 mmol/L Normal 3.5-5.1 [facility] Comment on above: Performed By: #### C MP ####[facility] [address] [address]Dr. Hardeep Rivera Protein [Mass/Vol] 6.5 g/dL Normal 6.4-8.2 [facility] Comment on above: Performed By: #### C MP ####[facility] [address] [address]Dr. Hardeep Rivera Sodium [Moles/Vol] 131 mmol/L Critically low 136-145 [facility] Comment on above: Performed By: #### C MP ####[facility] [address] [address]Dr. Hardeep Rivera Urea nitrogen [Mass/Vol] 29.0 mg/dL Critically high 7.0-18.0 [facility] Comment on above: Performed By: #### C MP ####[facility] [address] [address]Dr. Hardeep Rivera Urea nitrogen/Creatinine [Mass ratio] 23.4 mg/mg Normal [facility] Comment on above: Performed By: #### C MP ####[facility] [address] [address]Dr. Hardeep Rivera BNPon 01-09-2023 Natriuretic peptide B (Bld) [Mass/Vol] 336.0 pg/mL Normal <=1,800.0 [facility] Comment on above: Performed By: #### C MP, TSH, BNP, T7 ####[facility] [address] [address]Dr. Hardeep Rivera CBC AUTO DIFFon 01-09-2023 BASO # 0.0 103/ul Normal 0.0-0.1 [facility] Comment on above: Performed By: #### C BC #### [facility] [address] [place] [address] Dr. Hardeep Rivera Basophils/100 WBC (Bld) 0.4 % Normal 0.2-2.0 [facility] Comment on above: Performed By: #### C BC #### [facility] [address] [place] [address] Dr. Hardeep Rivera EO # 0.3 103/ul Normal 0.0-0.7 [facility] Comment on above: Performed By: #### C BC #### [facility] [address] [address] [address] Hardeep Rivera Eosinophils/100 WBC (Bld) 4.4 % Normal 0.9-7.0 [facility] Comment on above: Performed By: #### C BC #### [facility] [address] [address] [address] Hardeep Rivera Erythrocyte distribution width (RBC) [Ratio] 12.3 % Normal 11.0-15.0 [facility] Comment on above: Performed By: #### C BC #### [facility] [address] [place] [address] Dr. Hardeep Rivera Hematocrit (Bld) [Volume fraction] 43.3 % Normal 36.0-48.0 [facility] Comment on above: Performed By: #### C BC #### [facility] [address] [place] [address] Dr. Hardeep Rivera Hemoglobin (Bld) [Mass/Vol] 13.5 g/dL Normal 12.0-16.0 [facility] Comment on above: Performed By: #### C BC #### [facility] [address] [place] [address] Dr. Hardeep Rivera IG # 0.02 10e3/ul Normal 0.00-0.03 [facility] Comment on above: Performed By: #### C BC #### [facility] [address] [place] [address] Dr. Hardeep Rivera IG % 0.3 % Normal 0.0-0.5 [facility] Comment on above: Performed By: #### C BC #### [facility] [address] [place] [address] Dr. Hardeep Rivera LYMPH # 1.1 103/ul Critically low 1.2-3.8 [facility] Comment on above: Performed By: #### C BC #### [facility] [address] [place] [address] Dr. Hardeep Rivera Lymphocytes/100 WBC (Bld) 16.0 % Critically low 20.5-60.0 [facility] Comment on above: Performed By: #### C BC #### [facility] [address] [place] [address] Dr. Hardeep Rivera MANUAL DIFF REQ NO Normal [facility] Comment on above: Performed By: #### C BC #### [facility] [address] [place] [address] Dr. Hardeep Rivera MCH (RBC) [Entitic mass] 28.4 pg Normal 26.7-34.0 [facility] Comment on above: Performed By: #### C BC #### [facility] [address] [address] [address] Hardeep Rivera MCHC (RBC) [Mass/Vol] 31.2 g/dL Normal 29.9-35.2 [facility] Comment on above: Performed By: #### C BC #### [facility] [address] [address] [address] Hardeep Rivera MCV (RBC) [Entitic vol] 91.0 fL Normal 81.0-99.0 [facility] Comment on above: Performed By: #### C BC #### [facility] [address] [address] [address] Hardeep Rivera MONO # 1.0 103/ul Critically high 0.3-0.8 [facility] Comment on above: Performed By: #### C BC #### [facility] [address] [place] [address] Dr. Hardeep Rivera Monocytes/100 WBC (Bld) 14.7 % Critically high 1.7-12.0 [facility] Comment on above: Performed By: #### C BC #### [facility] [address] [place] [address] Dr. Hardeep Rivera NEUT # 4.4 103/ul Normal 1.4-6.5 [facility] Comment on above: Performed By: #### C BC #### [facility] [address] [place] [address] Dr. Hardeep Rivera Neutrophils/100 WBC (Bld) 64.2 % Normal 43.0-75.0 [facility] Comment on above: Performed By: #### C BC #### [facility] [address] [address] [address] Hardeep Rivera Platelet mean volume (Bld) [Entitic vol] 9.5 fL Normal 9.5-13.5 [facility] Comment on above: Performed By: #### C BC #### [facility] [address] [place] [address] Dr. Hardeep Rivera PLT 238 103/ul Normal 150-450 [facility] Comment on above: Performed By: #### C BC #### [facility] [address] [address] [address] Hardeep Rivera RBC 4.76 106/ul Normal 4.20-5.40 [facility] Comment on above: Performed By: #### C BC #### [facility] [address] [address] [address] Hardeep Rivera WBC 6.8 103/ul Normal 4.0-11.0 [facility] Comment on above: Performed By: #### C BC #### [facility] [address] [address] [address] Hardeep Rivera FREE THYROXINE INDEX T7on FTI 3.96 Normal 1.30-4.50 [facility] Comment on above: Performed By: #### C MP, TSH, BNP, T7 ####[facility] [address] [address]DrLaura Rivera T3U 35.0 % Normal 30.0-39.0 [facility] Comment on above: Performed By: #### C MP, TSH, BNP, T7 ####[facility] [address] [address]DrLaura Rivera T4 [Mass/Vol] 11.30 ug/dL Normal 4.80-13.90 [facility] Comment on above: Performed By: #### C MP, TSH, BNP, T7 ####[facility] [address] [address]DrLaura Rivera PROF 14(COMP METB)on 023 Albumin [Mass/Vol] 3.9 g/dL Normal 3.4-5.0 [facility] Comment on above: Performed By: #### C MP, TSH, BNP, T7 ####[facility] [address] [address]DrLaura Rivera Albumin/Globulin [Mass ratio] 1.2 {ratio} Normal [facility] Comment on above: Performed By: #### C MP, TSH, BNP, T7 ####[facility] [address] [address]DrLaura Rivera ALP [Catalytic activity/Vol] 151 U/L Critically high 46-116 [facility] Comment on above: Performed By: #### C MP, TSH, BNP, T7 ####[facility] [address] [address]Dr. Hardeep Rivera ALT [Catalytic activity/Vol] 30 U/L Normal 14-59 [facility] Comment on above: Performed By: #### C MP, TSH, BNP, T7 ####[facility] [address] [address]Dr. Hardeep Rivera Anion gap [Moles/Vol] 15.6 mmol/L Normal [facility] Comment on above: Performed By: #### C MP, TSH, BNP, T7 ####[facility] [address] [place], [place] [address]Dr. Hardeep Rivera AST [Catalytic activity/Vol] 23 U/L Normal 15-37 [facility] Comment on above: Performed By: #### C MP, TSH, BNP, T7 ####[facility] [address] [place], [place] [address]Dr. Hardeep Rivera Bilirubin [Mass/Vol] 0.7 mg/dL Normal 0.2-1.0 [facility] Comment on above: Performed By: #### C MP, TSH, BNP, T7 ####[facility] [address] [place], [place] [address]Dr. Hardeep Rivera Calcium [Mass/Vol] 9.0 mg/dL Normal 8.5-10.1 [facility] Comment on above: Performed By: #### C MP, TSH, BNP, T7 ####[facility] [address] [address]Dr. Hardeep Rivera Chloride [Moles/Vol] 97 mmol/L Critically low 98-107 [facility] Comment on above: Performed By: #### C MP, TSH, BNP, T7 ####[facility] [address] [address]Dr. Hardeep Rivera CO2 [Moles/Vol] 26.1 mmol/L Normal 21.0-32.0 [facility] Comment on above: Performed By: #### C MP, TSH, BNP, T7 ####[facility] [address] [address]Dr. Hardeep Rivera Creatinine [Mass/Vol] 1.78 mg/dL Critically high 0.55-1.02 [facility] Comment on above: Performed By: #### C MP, TSH, BNP, T7 ####[facility] [address] [address]Dr. Hardeep Miguel EGFR-AF [place] 33 mL/min/1.73m2 Critically low >=60 [facility] Comment on above: Performed By: #### C MP, TSH, BNP, T7 ####[facility] [address] [place], [place] [address]Dr. Hardeep Miguel EGFR-NON AF [place] 28 mL/min/1.73m2 Critically low >=60 [facility] Comment on above: Performed By: #### C MP, TSH, BNP, T7 ####[facility] [address] [place], [place] [address]Dr. Hardeep Rivera Globulin (S) [Mass/Vol] 3.3 g/dL Normal [facility] Comment on above: Performed By: #### C MP, TSH, BNP, T7 ####[facility] [address] [place], [place] [address]Dr. Hardeep Rivera Glucose [Mass/Vol] 127 mg/dL Critically high 74-106 T [facility] Comment on above: Performed By: #### C MP, TSH, BNP, T7 ####[facility] [address] [place], [place] [address]Dr. Hardeep Rivera Potassium [Moles/Vol] 3.7 mmol/L Normal 3.5-5.1 [facility] Comment on above: Performed By: #### C MP, TSH, BNP, T7 ####[facility] [address] [place], [place] [address]Dr. Haredep Rivera Protein [Mass/Vol] 7.2 g/dL Normal 6.4-8.2 [facility] Comment on above: Performed By: #### C MP, TSH, BNP, T7 ####[facility] [address] [address]Dr. Hardeep Rivera Sodium [Moles/Vol] 135 mmol/L Critically low 136-145 [facility] Comment on above: Performed By: #### C MP, TSH, BNP, T7 ####[facility] [address] [place], [place] [address]El. Hardeep Rivera Urea nitrogen [Mass/Vol] 54.0 mg/dL Critically high 7.0-18.0 [facility] Comment on above: Performed By: #### C MP, TSH, BNP, T7 ####[facility] [address] [address]Dr. Hardeep Rivera Urea nitrogen/Creatinine [Mass ratio] 30.3 mg/mg Normal [facility] Comment on above: Performed By: #### C MP, TSH, BNP, T7 ####[facility] [address] [address]Dr. Hardeep Rivera TSHon 01-09-2023 TSH 1.097 uIU/mL Normal 0.358-3.740 [facility] Comment on above: Performed By: #### C MP, TSH, BNP, T7 ####[facility] [address] [address]Dr. Hardeep Rivera ECHOCARDIO M/2D COMPLETEon 0 12-13-2022 ECHOCARDIO M/2D COMPLETE Patient: SYLVIA HERRERA Exam Date: 12/13/2022 : 1945 Gender:F [facility] #: [id number] Family : Order #: [id number] CLICK HERE TO VIEW EXAM ECHOCARDIOGRAM REPORT [...] Area (VTI): 2.23 cm2, 2.23 cm2 Deceleration [place]: 1.44 m/s2 Pressure Half-Time: 850.98 ms Peak [...] M.D. on 12/14/2022 at 13:49 Normal [facility] US KT DOP LEG BILon 023 [...] HAI FOSTER Date: 2022-12-13 10:51 Normal [facility] BNPon 12-11-2022 Natriuretic peptide B (Bld) [Mass/Vol] 457.0 pg/mL Normal <=1,800.0 [facility] Comment on above: Performed By: #### RANDALL OLSON #### [facility] [address] [place] [address] Dr. Hardeep Rivera CBC AUTO DIFFon 12-11-2022 BASO # 0.0 103/ul Normal 0.0-0.1 [facility] Comment on above: Performed By: #### E KATHRIN UMICRO #### [facility] [address] [place] [address] Dr. Hardeep Rivera Basophils/100 WBC (Bld) 0.4 % Normal 0.2-2.0 [facility] Comment on above: Performed By: #### E KATHRIN, UMICRO #### [facility] [address] [place] [address] Dr. Hardeep Rivera EO # 0.2 103/ul Normal 0.0-0.7 [facility] Comment on above: Performed By: #### Deedee PINON UMICRO #### [facility] [address] [place] [address] Dr. Hardeep Rivera Eosinophils/100 WBC (Bld) 2.7 % Normal 0.9-7.0 [facility] Comment on above: Performed By: #### Deedee PINON UMICRO #### [facility] [address] [place] [address] Dr. Hardeep Rivera Erythrocyte distribution width (RBC) [Ratio] 11.9 % Normal 11.0-15.0 [facility] Comment on above: Performed By: #### Deedee PINON, UMICRO #### [facility] [address] [place] [address] Dr. Hardeep Rivera Hematocrit (Bld) [Volume fraction] 40.2 % Normal 36.0-48.0 [facility] Comment on above: Performed By: #### Deedee PINON, UMICRO #### [facility] [address] [place] [address] Dr. Hardeep Rivera Hemoglobin (Bld) [Mass/Vol] 13.5 g/dL Normal 12.0-16.0 [facility] Comment on above: Performed By: #### E RUR, UMICRO #### [facility] [address] [place] [address] Dr. Hardeep Rivera IG # 0.03 10e3/ul Normal 0.00-0.03 [facility] Comment on above: Performed By: #### RANDALL OLSON #### [facility] [address] [place] [address] Dr. Hardeep Rivera IG % 0.4 % Normal 0.0-0.5 [facility] Comment on above: Performed By: #### RANDALL OLSON #### [facility] [address] [place] [address] Dr. Hardeep Rivera LYMPH # 0.9 103/ul Critically low 1.2-3.8 [facility] Comment on above: Performed By: #### RANDALL OLSON #### [facility] [address] [place] [address] Dr. Hardeep Rivera Lymphocytes/100 WBC (Bld) 11.3 % Critically low 20.5-60.0 [facility] Comment on above: Performed By: #### RANDALL OLSON #### [facility] [address] [place] [address] Dr. Hardeep Rivera MANUAL DIFF REQ NO Normal [facility] Comment on above: Performed By: #### RANDALL OLSON #### [facility] [address] [place] [address] Dr. Hardeep Rivera MCH (RBC) [Entitic mass] 28.4 pg Normal 26.7-34.0 [facility] Comment on above: Performed By: #### HARI OLSONRO #### [facility] [address] [place] [address] Dr. Hardeep Rivera MCHC (RBC) [Mass/Vol] 33.6 g/dL Normal 29.9-35.2 [facility] Comment on above: Performed By: #### HARI OLSONRO #### [facility] [address] [place] [address] Dr. Hardeep Rivera MCV (RBC) [Entitic vol] 84.5 fL Normal 81.0-99.0 [facility] Comment on above: Performed By: #### HARI OLSONRO #### [facility] [address] [place] [address] Dr. Hardeep Rievra MONO # 1.0 103/ul Critically high 0.3-0.8 [facility] Comment on above: Performed By: #### Deedee PINON UMICRO #### [facility] [address] [place] [address] Dr. Hardeep Rivera Monocytes/100 WBC (Bld) 12.5 % Critically high 1.7-12.0 [facility] Comment on above: Performed By: #### Deedee PINON UMICRO #### [facility] [address] [place] [address] Dr. Hardeep Rivera NEUT # 5.9 103/ul Normal 1.4-6.5 [facility] Comment on above: Performed By: #### Deedee PINON UMICRO #### [facility] [address] [place] [address] Dr. Hardeep Rivera Neutrophils/100 WBC (Bld) 72.7 % Normal 43.0-75.0 [facility] Comment on above: Performed By: #### Deedee PINON UMICRO #### [facility] [address] [place] [address] Dr. Hardeep Rivera Platelet mean volume (Bld) [Entitic vol] 8.6 fL Critically low 9.5-13.5 [facility] Comment on above: Performed By: #### Deedee PINON ICRO #### [facility] [address] [place] [address] Dr. Hardeep Rivera PLT 226 103/ul Normal 150-450 [facility] Comment on above: Performed By: #### Deedee PINON UMICRO #### [facility] [address] [place] [address] Dr. Hardeep Rivera RBC 4.76 106/ul Normal 4.20-5.40 [facility] Comment on above: Performed By: #### Deedee PINON UMICRO #### [facility] [address] [place] [address] Dr. Hardeep Rivera WBC 8.2 103/ul Normal 4.0-11.0 [facility] Comment on above: Performed By: #### HARI OLSONRO #### [facility] [address] [place] [address] Dr. Hardeep Rivera FREE THYROXINE INDEX T7on FTI 3.40 Normal 1.30-4.50 [facility] Comment on above: Performed By: #### HARI OLSONRO #### [facility] [address] [place] [address] Dr. Hardeep Rivera T3U 34.0 % Normal 30.0-39.0 [facility] Comment on above: Performed By: #### HARI OLSONRO #### [facility] [address] [place] [address] Dr. Hardeep Rivera T4 [Mass/Vol] 10.00 ug/dL Normal 4.80-13.90 [facility] Comment on above: Performed By: #### HARI OLSONRO #### [facility] [address] [place] [address] Dr. Hardeep Rivera PROF 14(COMP METB)on 023 Albumin [Mass/Vol] 3.8 g/dL Normal 3.4-5.0 [facility] Comment on above: Performed By: #### HARI OLSONRO #### [facility] [address] [place] [address] Dr. Hardeep Rivera Albumin/Globulin [Mass ratio] 1.1 {ratio} Normal [facility] Comment on above: Performed By: #### HARI OLSONRO #### [facility] [address] [place] [address] Dr. Hardeep Rivera ALP [Catalytic activity/Vol] 192 U/L Critically high 46-116 [facility] Comment on above: Performed By: #### HARI OLSONRO #### [facility] [address] [place] [address] Dr. Hardeep Rivera ALT [Catalytic activity/Vol] 22 U/L Normal 14-59 [facility] Comment on above: Performed By: #### HARI OLSONRO #### [facility] [address] [address] [address] Hardeep Rivera Anion gap [Moles/Vol] 11.4 mmol/L Normal [facility] Comment on above: Performed By: #### Deedee PINON UMICRO #### [facility] [address] [address] [address] Hardeep Rivera AST [Catalytic activity/Vol] 22 U/L Normal 15-37 [facility] Comment on above: Performed By: #### Deedee PINON, UMICRO #### [facility] [address] [address] [address] Hardeep Rivera Bilirubin [Mass/Vol] 0.5 mg/dL Normal 0.2-1.0 [facility] Comment on above: Performed By: #### Deedee PINON, UMICRO #### [facility] [address] [place] [address] Dr. Hardeep Rivera Calcium [Mass/Vol] 9.1 mg/dL Normal 8.5-10.1 [facility] Comment on above: Performed By: #### Deedee PINON, UMICRO #### [facility] [address] [address] [address] Hardeep Rivera Chloride [Moles/Vol] 93 mmol/L Critically low 98-107 [facility] Comment on above: Performed By: #### Deedee PINON, UMICRO #### [facility] [address] [address] [address] Hardeep Rivera CO2 [Moles/Vol] 30.8 mmol/L Normal 21.0-32.0 [facility] Comment on above: Performed By: #### Deedee PINON, UMICRO #### [facility] [address] [address] [address] Hardeep Rivera Creatinine [Mass/Vol] 1.49 mg/dL Critically high 0.55-1.02 [facility] Comment on above: Performed By: #### Deedee PINON, UMICRO #### [facility] [address] [address] [address] Hardeep Rivera EGFR-AF [place] 41 mL/min/1.73m2 Critically low >=60 [facility] Comment on above: Performed By: #### HARI OLSONRO #### [facility] [address] [place] [address] Dr. Hardeep Rivera EGFR-NON AF [place] 34 mL/min/1.73m2 Critically low >=60 [facility] Comment on above: Performed By: #### HARI OLSONRO #### [facility] [address] [place] [address] Dr. Hardeep Rivera Globulin (S) [Mass/Vol] 3.4 g/dL Normal [facility] Comment on above: Performed By: #### HARI OLSONRO #### [facility] [address] [place] [address] Dr. Hardeep Rivera Glucose [Mass/Vol] 116 mg/dL Critically high 74-106 T [facility] Comment on above: Performed By: #### HARI OLSONRO #### [facility] [address] [place] [address] Dr. Hardeep Rivera Potassium [Moles/Vol] 4.2 mmol/L Normal 3.5-5.1 [facility] Comment on above: Performed By: #### HARI OLSONRO #### [facility] [address] [place] [address] Dr. Hardeep Rivera Protein [Mass/Vol] 7.2 g/dL Normal 6.4-8.2 [facility] Comment on above: Performed By: #### HARI OLSONRO #### [facility] [address] [place] [address] Dr. Hardeep Rivera Sodium [Moles/Vol] 131 mmol/L Critically low 136-145 Th [facility] Comment on above: Performed By: #### HARI OLSONRO #### [facility] [address] [place] [address] Dr. Hardeep Rivera Urea nitrogen [Mass/Vol] 38.0 mg/dL Critically high 7.0-18.0 [facility] Comment on above: Performed By: #### HARI OLSONRO #### [facility] [address] [address] [address] Hardeep Rivera Urea nitrogen/Creatinine [Mass ratio] 25.5 mg/mg Normal [facility] Comment on above: Performed By: #### RANDALL OLSON #### [facility] [address] [place] [address] Dr. Hardeep Rivera TSHon 12-11-2022 TSH 6.407 uIU/mL Critically high 0.358-3.740 [facility] Comment on above: Performed By: #### E HARI PINONRO #### [facility] [address] [address] [address] Hardeep Rivera Covid-19 PCR ([facility])on 11-01 SARS-CoV-2 (COVID-19) RNA ULICES+probe Ql (Unsp spec) Not detected Normal NOT DETECTED [facility] Comment on above: Result Comment: This test is not yet approved or cleared by the [place] FDA. When there are no FDA-approved or cleared tests available, and other criteria are met, FDA can make tests available under an emergency access mechanism called an Emergency Use Authorization (EUA). The EUA for this test is supported by the [place] of Health and Human Service's (HHS's) declaration [...] SARS-CoV-2. Performed By: #### C VDTB #### [facility] [address] [place] [address] Dr. Hardeep Rivera INFLUENZA A AND B AGon 11-14 INFLUANEGH SEE BELOW Normal [facility] Comment on above: Result Comment: Nega tive for Flu A protein angiten. Infection due to Flu A cannot be ruled out. Flu A angiten in the sample may be below the detection limit of the test. Performed By: #### E RUR, UMICRO #### [facility] [address] [place] [address] Dr. Hardeep Rivera [facility] SEE BELOW Normal [facility] Comment on above: Result Comment: Nega tive for Flu B protein antigen. Infection due to Flu B cannot be ruled out. Flu B antigen in the sample may be below the detection limit of the test. Performed By: #### E COLLINSR, UMICRO #### [facility] [address] [place] [address] Dr. Hardeep Rivera INFLUENZA A AG Negative Normal NEGATIVE SEE COMMENT [facility] Comment on above: Performed By: #### Deedee GUADALUPER, UMICRO #### [facility] [address] [place] [address] Dr. Hardeep Rivera INFLUENZA B AG Negative Normal NEGATIVE SEE COMMENT [facility] Comment on above: Performed By: #### Deedee PINON, UMICRO #### [facility] [address] [place] [address] Dr. Hardeep Rivera INTERNAL CONTROLS Within Normal Limits Normal Wi thin Normal Limits [facility] Comment on above: Performed By: #### Deedee PINON, UMICRO #### [facility] [address] [place] [address] Dr. Hardeep Rivera [facility]on SARS-CoV-2 (COVID-19) RNA ULICES+probe Ql (Unsp spec) Not detected Normal NOT DETECTED [facility] Comment on above: Result Comment: This test is not yet approved or cleared by the [place] FDA. When there are no FDA-approved or cleared tests available, and other criteria are met, FDA can make tests available under an emergency access mechanism called an Emergency Use Authorization (EUA). The EUA for this test is supported by the [place] of Health and Human Service's (HHS's) declaration [...] consistent with SARS-CoV-2. Performed By: #### [facility] #### [facility] [address] [place] [address] Dr. Hardeep Rivera INFLUENZA A AND B AGon 10-03 INFLUANE SEE BELOW Normal [facility] Comment on above: Result Comment: Nega tive for Flu A protein angiten. Infection due to Flu A cannot be ruled out. Flu A angiten in the sample may be below the detection limit of the test. Performed By: #### AKSHAT OLSONICRO #### [facility] [address] [place] [address] Dr. [facility] SEE BEL[facility] Normal [facility] Comment on above: Result Comment: Nega tive for Flu B protein antigen. Infection due to Flu B cannot be ruled out. Flu B antigen in the sample may be below the detection limit of the test. Performed By: #### Deedee PINON UMICRO #### [facility] [address] [place] [address] Dr. Hardeep Rivera INFLUENZA A AG Negative Normal NEGATIVE SEE COMMENT [facility] Comment on above: Performed By: #### Deedee PINON UMICRO #### [facility] [address] [place] [address] Dr. Hardeep Rivera INFLUENZA B AG Negative Normal NEGATIVE SEE COMMENT [facility] Comment on above: Performed By: #### Deedee PINON UMICRO #### [facility] [address] [place] [address] Dr. Hardeep Rivera INTERNAL CONTROLS Within Normal Limits Normal Wi thin Normal Limits [facility] Comment on above: Performed By: #### Deedee PINON UMICRO #### [facility] [address] [place] [address] Dr. Hardeep Rivera AMYLASEon 08-04-2022 Amylase [Catalytic activity/Vol] 155 U/L Critically high 25-115 [facility] Comment on above: Performed By: #### C ARGENIS, ABAD, BRITTNEY ####[facility] [address] [address]Dr. Preethiarabella Rivera CBC AUTO DIFFon 08-04-2022 BASO # 0.0 103/ul Normal 0.0-0.1 [facility] Comment on above: Performed By: #### C BC ####[facility] [address] [place], [place] [address]Dr. Hardeep Rivera Basophils/100 WBC (Bld) 0.3 % Normal 0.2-2.0 [facility] Comment on above: Performed By: #### C BC ####[facility] [address] [place], [place] [address]Dr. Hardeep Rivera EO # 0.1 103/ul Normal 0.0-0.7 [facility] Comment on above: Performed By: #### C BC ####[facility] [address] [place], [place] [address]Dr. Hardeep Rivera Eosinophils/100 WBC (Bld) 1.2 % Normal 0.9-7.0 [facility] Comment on above: Performed By: #### C BC ####[facility] [address] [place], [place] [address]Dr. Hardeep Rivera Erythrocyte distribution width (RBC) [Ratio] 12.2 % Normal 11.0-15.0 [facility] Comment on above: Performed By: #### C BC ####[facility] [address] [place], [place] [address]Dr. Hardeep Rivera Hematocrit (Bld) [Volume fraction] 38.3 % Normal 36.0-48.0 [facility] Comment on above: Performed By: #### C BC ####[facility] [address] [place], [place] [address]Dr. Hardeep Rivera Hemoglobin (Bld) [Mass/Vol] 12.9 g/dL Normal 12.0-16.0 [facility] Comment on above: Performed By: #### C BC ####[facility] [address] [place], [place] [address]DrLaura Rivera IG # 0.02 10e3/ul Normal 0.00-0.03 [facility] Comment on above: Performed By: #### C BC ####[facility] [facility] [address] [place] [address]DrLaura Rivrea IG % 0.3 % Normal 0.0-0.5 [facility] Comment on above: Performed By: #### C BC ####[facility] [address] [place], [place] [address]DrLaura Rivera LYMPH # 1.1 103/ul Critically low 1.2-3.8 [facility] Comment on above: Performed By: #### C BC ####[facility] [address] [place], [place] [address]DrLaura Rivera Lymphocytes/100 WBC (Bld) 16.6 % Critically low 20.5-60.0 [facility] Comment on above: Performed By: #### C BC ####[facility] [address] [place], [place] [address]DrLaura Rivera MANUAL DIFF REQ NO Normal [facility] Comment on above: Performed By: #### C BC ####[facility] [address] [place], [place] [address]DrLaura Rivera MCH (RBC) [Entitic mass] 29.7 pg Normal 26.7-34.0 [facility] Comment on above: Performed By: #### C BC ####[facility] [address] [place], [place] [address]DrLaura Rivera MCHC (RBC) [Mass/Vol] 33.7 g/dL Normal 29.9-35.2 [facility] Comment on above: Performed By: #### C BC ####[facility] [address] [place], [place] [address]DrLaura Rivera MCV (RBC) [Entitic vol] 88.2 fL Normal 81.0-99.0 [facility] Comment on above: Performed By: #### C BC ####[facility] [address] [place], [place] [address]DrLaura Rivera MONO # 0.7 103/ul Normal 0.3-0.8 [facility] Comment on above: Performed By: #### C BC ####[facility] [address] [place] [address]Dr. Hardeep Rivera Monocytes/100 WBC (Bld) 11.1 % Normal 1.7-12.0 [facility] Comment on above: Performed By: #### C BC ####[facility] [address] [place] [address]Dr. Hardeep Rivera NEUT # 4.6 103/ul Normal 1.4-6.5 [facility] Comment on above: Performed By: #### C BC ####[facility] [address] [place] [address]Dr. Hardeep Rivera Neutrophils/100 WBC (Bld) 70.5 % Normal 43.0-75.0 [facility] Comment on above: Performed By: #### C BC ####[facility] [address] [place] [address]Dr. Hardeep Rivera Platelet mean volume (Bld) [Entitic vol] 9.4 fL Critically low 9.5-13.5 [facility] Comment on above: Performed By: #### C BC ####[facility] [address] [place] [address]Dr. Hardeep Rivera PLT 203 103/ul Normal 150-450 [facility] Comment on above: Performed By: #### C BC ####[facility] [address] [place] [address]Dr. Hardeep Rivera RBC 4.34 106/ul Normal 4.20-5.40 [facility] Comment on above: Performed By: #### C BC ####[facility] [address] [place] [address]Dr. Hardeep Rivera WBC 6.5 103/ul Normal 4.0-11.0 [facility] Comment on above: Performed By: #### C BC ####[facility] [address] [place] [id number]. Hardeep Rivera CT ABD/PELVIS WO CONon 08-04 [...] ALEXSANDER HARDING Date: 2022-08-04 20:12 Normal [facility] Covid-19 PCR (CVDTBH)on SARS-CoV-2 (COVID-19) RNA ULICES+probe Ql (Unsp spec) Not detected Normal NOT DETECTED [facility] Comment on above: Result Comment: When [...] for this test is supported by the Manager Business Continuity of Health and Human Service's declaration that [...] be used). Performed By: #### C VDTBH ####[facility] [address] [place] [address]Dr. Hardeep Rivera ER URINE PROFILEon 2 Bilirubin Ql (U) Negative Normal NEGATIVE [facility] Comment on above: Performed By: #### E RUR #### [facility] [address] [address] [address] Hardeep Rivera Clarity (U) CLEAR Normal CLEAR [facility] Comment on above: Performed By: #### E RUR #### [facility] [address] [address] [address] Hardeep Rivera Color (U) LT. YELLOW Normal YELLOW [facility] Comment on above: Performed By: #### E RUR #### [facility] [address] [place] [address] Dr. Hardeep FRANCIS A micrscopic examina tion will be performed if indicated. Normal [facility] Comment on above: Performed By: #### E RUR #### [facility] [address] [place] [address] Dr. Hardeep Rivera Glucose Ql (U) Negative Normal NEGATIVE [facility] Comment on above: Performed By: #### E RUR #### [facility] [address] [place] [address] Dr. Hardeep Rivera Hemoglobin Ql (U) Negative Normal NEGATIVE [facility] Comment on above: Performed By: #### E RUR #### [facility] [address] [place] [address] Dr. Hardeep Rivera Ketones Ql (U) Negative Normal NEGATIVE [facility] Comment on above: Performed By: #### E RUR #### [facility] [address] [place] [address] Dr. Hardeep Rivera LEUKOCYTES Negative Normal NEGATIVE [facility] Comment on above: Performed By: #### E RUR #### [facility] [address] [place] [address] Dr. Hardeep Rivera Nitrite Ql (U) Negative Normal NEGATIVE [facility] Comment on above: Performed By: #### E RUR #### [facility] [address] [place] [address] Dr. Hardeep Rivera pH (U) 7.0 [pH] Normal 5-9 [facility] Comment on above: Performed By: #### E RUR #### [facility] [address] [place] [address] Dr. Hardeep Rivera SPEC GRAVITY <=1.005 Abnormal 1.005-<=1.0 25 [facility] Comment on above: Performed By: #### E RUR #### [facility] [address] [place] [address] Dr. aHrdeep Rivera UA PROTEIN Negative Normal NEGATIVE/ TRACE [facility] Comment on above: Performed By: #### E RUR #### [facility] [address] [address] [address] Hardeep Rivera UR MICRO IND NOT INDICATED Normal [facility] Comment on above: Performed By: #### E RUR #### [facility] [address] [address] [address] Hardeep Rivera Urobilinogen Qn (U) 0.2 {Kevon'U}/dL Normal 0.2 - 1. 0 [facility] Comment on above: Performed By: #### E RUR #### [facility] [address] [address] [address] Hardeep Rivera LIPASEon 08-04-2022 Lipase [Catalytic activity/Vol] 1486.0 U/L Critically high 73.0-393.0 [facility] Comment on above: Performed By: #### C ARGENIS LIPA, BRITTNEY ####[facility] [address] [place] [address]DrLaura Rivera PROF 14(COMP METB)on 022 Albumin [Mass/Vol] 3.6 g/dL Normal 3.4-5.0 [facility] Comment on above: Performed By: #### C ABAD MORE, BRITTNEY ####[facility] [address] [place] [address]DrLaura Rivera Albumin/Globulin [Mass ratio] 1.3 {ratio} Normal [facility] Comment on above: Performed By: #### C MP LIPA, BRITTNEY ####[facility] [address] [place] [address]DrLaura Rivera ALP [Catalytic activity/Vol] 171 U/L Critically high 46-116 [facility] Comment on above: Performed By: #### C ARGENIS LIPA, BRITTNEY ####[facility] [address] [place] [address]DrLaura Rivera ALT [Catalytic activity/Vol] 35 U/L Normal 14-59 [facility] Comment on above: Performed By: #### C MP LIPA, BRITTNEY ####[facility] [address] [place] [address]Dr. Hardeep Rivera Anion gap [Moles/Vol] 11.4 mmol/L Normal [facility] Comment on above: Performed By: #### C ABAD MORE, BRITTNEY ####[facility] [address] [place] [address]Dr. Hardeep Rivera AST [Catalytic activity/Vol] 28 U/L Normal 15-37 [facility] Comment on above: Performed By: #### C ABAD MORE, BRITTNEY ####[facility] [address] [place] [address]Dr. Hardeep Rivera Bilirubin [Mass/Vol] 0.7 mg/dL Normal 0.2-1.0 [facility] Comment on above: Performed By: #### C ABAD MORE, BRITTNEY ####[facility] [address] [place], [place] [address]Dr. Hardeep Rivera Calcium [Mass/Vol] 8.4 mg/dL Critically low 8.5-10.1 [facility] Comment on above: Performed By: #### C DERRELL MOREA, BRITTNEY ####[facility] [address] [place], [place] [address]Dr. Hardeep Rivera Chloride [Moles/Vol] 100 mmol/L Normal 98-107 [facility] Comment on above: Performed By: #### C ABAD MORE, BRITTNEY ####[facility] [address] [place], [place] [address]Dr. Hardeep Rivera CO2 [Moles/Vol] 25.6 mmol/L Normal 21.0-32.0 [facility] Comment on above: Performed By: #### C ARGENIS LIPA, BRITTNEY ####[facility] [address] [place], [place] [address]Dr. Hardeep Rivera Creatinine [Mass/Vol] 1.33 mg/dL Critically high 0.55-1.02 [facility] Comment on above: Performed By: #### C ARGENIS LIPA, BRITTNEY ####[facility] [address] [place], [place] [address]Dr. Hardeep Rivera EGFR-AF [place] 47 mL/min/1.73m2 Critically low >=60 [facility] Comment on above: Performed By: #### C MP LIPA, BRITTNEY ####[facility] [address] [place] [address]Dr. Hardeep Rivera EGFR-NON AF [place] 39 mL/min/1.73m2 Critically low >=60 [facility] Comment on above: Performed By: #### C MP LIPA, BRITTNEY ####[facility] [address] [place] [address]Dr. Hardeep Rivera Globulin (S) [Mass/Vol] 2.7 g/dL Normal [facility] Comment on above: Performed By: #### C ARGENIS LIPA, BRITTNEY ####[facility] [address] [place] [address]Dr. Hardeep Rivera Glucose [Mass/Vol] 108 mg/dL Critically high 74-106 [facility] Comment on above: Performed By: #### C ARGENIS LIPA, BRITTNEY ####[facility] [address] [place] [address]Dr. Hardeep Rivera Potassium [Moles/Vol] 4.0 mmol/L Normal 3.5-5.1 [facility] Comment on above: Performed By: #### C ARGENIS LIPA, BRITTNEY ####[facility] [address] [place] [address]Dr. Hardeep Rivera Protein [Mass/Vol] 6.3 g/dL Critically low 6.4-8.2 [facility] Comment on above: Performed By: #### C MP LIPA, BRITTNEY ####[facility] [address] [place] [address]Dr. Hardeep Rivera Sodium [Moles/Vol] 133 mmol/L Critically low 136-145 [facility] Comment on above: Performed By: #### C ARGENIS LIPA, BRITTNEY ####[facility] [address] [place] [address]Dr. Hardeep Rivera Urea nitrogen [Mass/Vol] 23.0 mg/dL Critically high 7.0-18.0 [facility] Comment on above: Performed By: #### C MP LIPA, BRITTNEY ####[facility] [address] [place] [address]Dr. Hardeep Rivera Urea nitrogen/Creatinine [Mass ratio] 17.3 mg/mg Normal [facility] Comment on above: Performed By: #### C ABAD MORE AMY ####[facility] [address] [place], [place] [address]VbDr. Hardeep Rivera BOX TEST SENT OUTon 08-02-20 SENT TO REF LAB 08/02/2022 Normal [facility] Comment on above: Performed By: #### E RUR #### [facility] [address] [address] [address] Hardeep Rivera CBC AUTO DIFFon 08-02-2022 BASO # 0.0 103/ul Normal 0.0-0.1 [facility] Comment on above: Performed By: #### Deedee PINON UMICRO #### [facility] [address] [place] [address] Dr. Hardeep Rivera Basophils/100 WBC (Bld) 0.3 % Normal 0.2-2.0 [facility] Comment on above: Performed By: #### Deedee PINON UMICRO #### [facility] [address] [place] [address] Dr. Hardeep Rivera EO # 0.1 103/ul Normal 0.0-0.7 [facility] Comment on above: Performed By: #### E KATHRIN UMICRO #### [facility] [address] [address] [address] Hardeep Rivera Eosinophils/100 WBC (Bld) 1.4 % Normal 0.9-7.0 [facility] Comment on above: Performed By: #### Deedee PINON UMICRO #### [facility] [address] [place] [address] Dr. Hardeep Rivera Erythrocyte distribution width (RBC) [Ratio] 12.2 % Normal 11.0-15.0 [facility] Comment on above: Performed By: #### E RUTrish, UMICRO #### [facility] [address] [place] [address] Dr. Hardeep Rivera Hematocrit (Bld) [Volume fraction] 41.2 % Normal 36.0-48.0 [facility] Comment on above: Performed By: #### HARI OLSONRO #### [facility] [address] [place] [address] Dr. Hardeep Rivera Hemoglobin (Bld) [Mass/Vol] 13.6 g/dL Normal 12.0-16.0 [facility] Comment on above: Performed By: #### HARI OLSONRO #### [facility] [address] [place] [address] Dr. Hardeep Rivera IG # 0.02 10e3/ul Normal 0.00-0.03 [facility] Comment on above: Performed By: #### HARI OLSONRO #### [facility] [address] [place] [address] Dr. Hardeep Rivera IG % 0.3 % Normal 0.0-0.5 [facility] Comment on above: Performed By: #### HARI OLSONRO #### [facility] [address] [place] [address] Dr. Hardeep Rivera LYMPH # 0.6 103/ul Critically low 1.2-3.8 [facility] Comment on above: Performed By: #### HARI OLSONRO #### [facility] [address] [place] [address] Dr. Hardeep Rivera Lymphocytes/100 WBC (Bld) 8.9 % Critically low 20.5-60.0 [facility] Comment on above: Performed By: #### HARI OLSONRO #### [facility] [address] [place] [address] Dr. Hardeep Rivera MANUAL DIFF REQ NO Normal [facility] Comment on above: Performed By: #### HARI OLSONRO #### [facility] [address] [place] [address] Dr. Hardeep Rivera MCH (RBC) [Entitic mass] 29.6 pg Normal 26.7-34.0 [facility] Comment on above: Performed By: #### HARI OLSONRO #### [facility] [address] [place] [address] Dr. Hardeep Rivera MCHC (RBC) [Mass/Vol] 33.0 g/dL Normal 29.9-35.2 [facility] Comment on above: Performed By: #### E RUR, UMICRO #### [facility] [address] [place] [address] Dr. Hardeep Rivera MCV (RBC) [Entitic vol] 89.8 fL Normal 81.0-99.0 [facility] Comment on above: Performed By: #### E RUR, UMICRO #### [facility] [address] [place] [address] Dr. Hardeep Rivera MONO # 0.7 103/ul Normal 0.3-0.8 [facility] Comment on above: Performed By: #### E COLLINSR, UMICRO #### [facility] [address] [place] [address] Dr. Hardeep Rivera Monocytes/100 WBC (Bld) 11.6 % Normal 1.7-12.0 [facility] Comment on above: Performed By: #### E RUR, UMICRO #### [facility] [address] [place] [address] Dr. Hardeep Rivera NEUT # 5.0 103/ul Normal 1.4-6.5 [facility] Comment on above: Performed By: #### E COLLINSR, UMICRO #### [facility] [address] [place] [address] Dr. Hardeep Rivera Neutrophils/100 WBC (Bld) 77.5 % Critically high 43.0-75.0 [facility] Comment on above: Performed By: #### E RUR, UMICRO #### [facility] [address] [place] [address] Dr. Hardeep Rivera Platelet mean volume (Bld) [Entitic vol] 9.4 fL Critically low 9.5-13.5 [facility] Comment on above: Performed By: #### E RUR, UMICRO #### [facility] [address] [place] [address] Dr. Hardeep Rivera PLT 200 103/ul Normal 150-450 [facility] Comment on above: Performed By: #### HARI OLSONRO #### [facility] [address] [place] [address] Dr. Hardeep Rivera RBC 4.59 106/ul Normal 4.20-5.40 [facility] Comment on above: Performed By: #### HARI OLSONRO #### [facility] [address] [place] [address] Dr. Hardeep Rivera WBC 6.4 103/ul Normal 4.0-11.0 [facility] Comment on above: Performed By: #### HARI OLSONRO #### [facility] [address] [place] [address] Dr. Hardeep Rivera PROF CHEM 8 (BAS METB)on Anion gap [Moles/Vol] 12.2 mmol/L Normal [facility] Comment on above: Performed By: #### HARI OLSONRO #### [facility] [address] [place] [address] Dr. Hardeep Rivera Calcium [Mass/Vol] 8.6 mg/dL Normal 8.5-10.1 [facility] Comment on above: Performed By: #### HARI OLSONRO #### [facility] [address] [place] [address] Dr. Hardeep Rivera Chloride [Moles/Vol] 98 mmol/L Normal 98-107 [facility] Comment on above: Performed By: #### HARI OLSONRO #### [facility] [address] [place] [address] Dr. Hardeep Rivera CO2 [Moles/Vol] 27.7 mmol/L Normal 21.0-32.0 [facility] Comment on above: Performed By: #### HARI OLSONRO #### [facility] [address] [place] [address] Dr. Hardeep Rivera Creatinine [Mass/Vol] 1.42 mg/dL Critically high 0.55-1.02 [facility] Comment on above: Performed By: #### E RUR, UMICRO #### [facility] [address] [address] [address] Hardeep Rivera EGFR-AF [place] 43 mL/min/1.73m2 Critically low >=60 [facility] Comment on above: Performed By: #### E KATHRIN, UMICRO #### [facility] [address] [place] [address] Dr. Hardeep Rivera EGFR-NON AF [place] 36 mL/min/1.73m2 Critically low >=60 [facility] Comment on above: Performed By: #### E KATHRIN, UMICRO #### [facility] [address] [place] [address] Dr. Hardeep Rivera Glucose [Mass/Vol] 119 mg/dL Critically high 74-106 [facility] Comment on above: Performed By: #### E KATHRIN UMICRO #### [facility] [address] [place] [address] Dr. Hardeep Rivera Potassium [Moles/Vol] 3.9 mmol/L Normal 3.5-5.1 [facility] Comment on above: Performed By: #### Deedee PINON UMICRO #### [facility] [address] [place] [address] Dr. Hardeep Rivera Sodium [Moles/Vol] 134 mmol/L Critically low 136-145 [facility] Comment on above: Performed By: #### E KATHRIN UMICRO #### [facility] [address] [place] [address] Dr. Hardeep Rivera Urea nitrogen [Mass/Vol] 21.0 mg/dL Critically high 7.0-18.0 [facility] Comment on above: Performed By: #### E KATHRIN UMICRO #### [facility] [address] [place] [address] Dr. Hardeep Rivera Urea nitrogen/Creatinine [Mass ratio] 14.8 mg/mg Normal [facility] Comment on above: Performed By: #### E KATHRIN, UMICRO #### [facility] [address] [place] [address] Dr. Hardeep Rivera BOX TEST SENT OUTon 07-03-20 22 SENT TO REF LAB 07/03/2022 Normal [facility] Comment on above: Performed By: #### E RANDALL PINON #### [facility] [address] [place] [address] Dr. Hardeep Rivera CBC AUTO DIFFon 07-03-2022 BASO # 0.0 103/ul Normal 0.0-0.1 [facility] Comment on above: Performed By: #### C BC #### [facility] [address] [place] [address] Dr. Hardeep Rivera Basophils/100 WBC (Bld) 0.3 % Normal 0.2-2.0 [facility] Comment on above: Performed By: #### C BC #### [facility] [address] [place] [address] Dr. Hardeep Rivera EO # 0.1 103/ul Normal 0.0-0.7 [facility] Comment on above: Performed By: #### C BC #### [facility] [address] [place] [address] Dr. Hardeep Rivera Eosinophils/100 WBC (Bld) 0.9 % Normal 0.9-7.0 [facility] Comment on above: Performed By: #### C BC #### [facility] [address] [place] [address] Dr. Hardeep Rivera Erythrocyte distribution width (RBC) [Ratio] 12.2 % Normal 11.0-15.0 [facility] Comment on above: Performed By: #### C BC #### [facility] [address] [place] [address] Dr. Hardeep Rivera Hematocrit (Bld) [Volume fraction] 42.3 % Normal 36.0-48.0 [facility] Comment on above: Performed By: #### C BC #### [facility] [address] [place] [address] Dr. Hardeep Rivera Hemoglobin (Bld) [Mass/Vol] 14.0 g/dL Normal 12.0-16.0 [facility] Comment on above: Performed By: #### C BC #### [facility] [address] [place] [address] Dr. Hardeep Rivera IG # 0.04 10e3/ul Critically high 0.00-0.03 [facility] Comment on above: Performed By: #### C BC #### [facility] [address] [place] [address] Dr. Hardeep Rivera IG % 0.5 % Normal 0.0-0.5 [facility] Comment on above: Performed By: #### C BC #### [facility] [address] [place] [address] Dr. Hardeep Rivera LYMPH # 0.8 103/ul Critically low 1.2-3.8 [facility] Comment on above: Performed By: #### C BC #### [facility] [address] [place] [address] Dr. Hardeep Rivera Lymphocytes/100 WBC (Bld) 10.9 % Critically low 20.5-60.0 [facility] Comment on above: Performed By: #### C BC #### [facility] [address] [place] [address] Dr. Hardeep Rivera MANUAL DIFF REQ NO Normal [facility] Comment on above: Performed By: #### C BC #### [facility] [address] [place] [address] Dr. Hardeep Rivera MCH (RBC) [Entitic mass] 29.7 pg Normal 26.7-34.0 [facility] Comment on above: Performed By: #### C BC #### [facility] [address] [place] [address] Dr. Hardeep Rivera MCHC (RBC) [Mass/Vol] 33.1 g/dL Normal 29.9-35.2 [facility] Comment on above: Performed By: #### C BC #### [facility] [address] [place] [address] Dr. Hardeep Rivera MCV (RBC) [Entitic vol] 89.8 fL Normal 81.0-99.0 [facility] Comment on above: Performed By: #### C BC #### [facility] [address] [place] [address] Dr. Hardeep Rivera MONO # 0.9 103/ul Critically high 0.3-0.8 [facility] Comment on above: Performed By: #### C BC #### [facility] [address] [place] [address] Dr. Hardeep Rivera Monocytes/100 WBC (Bld) 11.1 % Normal 1.7-12.0 [facility] Comment on above: Performed By: #### C BC #### [facility] [address] [place] [address] Dr. Hardeep Rivera NEUT # 5.8 103/ul Normal 1.4-6.5 [facility] Comment on above: Performed By: #### C BC #### [facility] [address] [place] [address] Dr. Hardeep Rivera Neutrophils/100 WBC (Bld) 76.3 % Critically high 43.0-75.0 [facility] Comment on above: Performed By: #### C BC #### [facility] [address] [place] [address] Dr. Hardeep Rivera Platelet mean volume (Bld) [Entitic vol] 9.5 fL Normal 9.5-13.5 [facility] Comment on above: Performed By: #### C BC #### [facility] [address] [place] [address] Dr. Hardeep Rivera PLT 191 103/ul Normal 150-450 [facility] Comment on above: Performed By: #### C BC #### [facility] [address] [place] [address] Dr. Hardeep Rivera RBC 4.71 106/ul Normal 4.20-5.40 [facility] Comment on above: Performed By: #### C BC #### [facility] [address] [place] [address] Dr. Hardeep Rivera WBC 7.6 103/ul Normal 4.0-11.0 [facility] Comment on above: Performed By: #### C BC #### [facility] [address] [place] [address] Dr. Hardeep Rivera PROF CHEM 8 (BAS METB)on Anion gap [Moles/Vol] 12.9 mmol/L Normal [facility] Comment on above: Performed By: #### RANDALL OLSON #### [facility] [address] [place] [address] Dr. Hardeep Rivera Calcium [Mass/Vol] 9.0 mg/dL Normal 8.5-10.1 [facility] Comment on above: Performed By: #### HARI OLSONRO #### [facility] [address] [place] [address] Dr. Hardeep Rivera Chloride [Moles/Vol] 98 mmol/L Normal 98-107 [facility] Comment on above: Performed By: #### HARI OLSONRO #### [facility] [address] [place] [address] Dr. Hardeep Rivera CO2 [Moles/Vol] 28.1 mmol/L Normal 21.0-32.0 [facility] Comment on above: Performed By: #### HARI OLSONRO #### [facility] [address] [place] [address] Dr. Hardeep Rivera Creatinine [Mass/Vol] 1.64 mg/dL Critically high 0.55-1.02 [facility] Comment on above: Performed By: #### RANDALL OLSON #### [facility] [address] [place] [address] Dr. Hardeep Rivera EGFR-AF [place] 37 mL/min/1.73m2 Critically low >=60 [facility] Comment on above: Performed By: #### HARI OLSONRO #### [facility] [address] [place] [address] Dr. Hardeep Rivera EGFR-NON AF [place] 30 mL/min/1.73m2 Critically low >=60 [facility] Comment on above: Performed By: #### HARI OLSONRO #### [facility] [address] [place] [address] Dr. Hardeep Rivera Glucose [Mass/Vol] 114 mg/dL Critically high 74-106 T [facility] Comment on above: Performed By: #### E RUR, UMICRO #### [facility] [address] [address] [address] Hardeep Rivera Potassium [Moles/Vol] 4.0 mmol/L Normal 3.5-5.1 [facility] Comment on above: Performed By: #### E COLLINSR, UMICRO #### [facility] [address] [address] [address] Hardeep Rivera Sodium [Moles/Vol] 135 mmol/L Critically low 136-145 Th [facility] Comment on above: Performed By: #### E COLLINSR, UMICRO #### [facility] [address] [address] [address] Hardeep Rivera Urea nitrogen [Mass/Vol] 24.0 mg/dL Critically high 7.0-18.0 [facility] Comment on above: Performed By: #### E KATHRIN, UMICRO #### [facility] [address] [address] [address] Hardeep Rivera Urea nitrogen/Creatinine [Mass ratio] 14.6 mg/mg Normal [facility] Comment on above: Performed By: #### E KATHRIN, UMICRO #### [facility] [address] [address] [address] Hardeep Rivera MG MAMM SCREEN 3D TRISHA CADon 05-28-2022 MG MAMM SCREEN 3D TRISHA CAD Patient: SYLVIA HERRERA Exam Date: 05/28/2022 : 1945 Gender:F Ordering : DR TAO ROONEY . Admission #: [id number] Family : Order #: [id number] CLICK HERE TO VIEW EXAM RADIOLOGY REPORT [...] Treatments None Family Cancers None LOCATION: [facility] BREAST COMPOSITION: Heterogeneously dense,which may obscure [...] Ibrahim MD on 05/28/2022 at 10:20 Normal [facility] BOX TEST SENT OUTon 05-07-20 22 SENT TO REF LAB 05/07/2022 Normal [facility] Comment on above: Performed By: #### RANDALL OLSON #### [facility] [address] [place] [address] Dr. Hardeep Rivera CBC AUTO DIFFon 05-07-2022 BASO # 0.0 103/ul Normal 0.0-0.1 [facility] Comment on above: Performed By: #### RANDALL OLSON #### [facility] [address] [place] [address] Dr. Hardeep Rivera Basophils/100 WBC (Bld) 0.4 % Normal 0.2-2.0 [facility] Comment on above: Performed By: #### RANDALL OLSON #### [facility] [address] [place] [address] Dr. Hardeep Rivera EO # 0.1 103/ul Normal 0.0-0.7 [facility] Comment on above: Performed By: #### RANDALL OLSON #### [facility] [address] [place] [address] Dr. Hardeep Rivera Eosinophils/100 WBC (Bld) 1.0 % Normal 0.9-7.0 [facility] Comment on above: Performed By: #### RANDALL OLSON #### [facility] [address] [place] [address] Dr. Hardeep Rivera Erythrocyte distribution width (RBC) [Ratio] 12.6 % Normal 11.0-15.0 [facility] Comment on above: Performed By: #### RANDALL OLSON #### [facility] [address] [place] [address] Dr. Hardeep Rivera Hematocrit (Bld) [Volume fraction] 44.0 % Normal 36.0-48.0 [facility] Comment on above: Performed By: #### E COLLINSR, UMICRO #### [facility] [address] [place] [address] Dr. Hardeep Rivera Hemoglobin (Bld) [Mass/Vol] 14.0 g/dL Normal 12.0-16.0 [facility] Comment on above: Performed By: #### E KATHRIN, UMICRO #### [facility] [address] [place] [address] Dr. Hardeep Rivera IG # 0.02 10e3/ul Normal 0.00-0.03 [facility] Comment on above: Performed By: #### Deedee PINON, UMICRO #### [facility] [address] [place] [address] Dr. Hardeep Rivera IG % 0.3 % Normal 0.0-0.5 [facility] Comment on above: Performed By: #### Deedee PIONN, UMICRO #### [facility] [address] [place] [address] Dr. Hardeep Rivera LYMPH # 0.6 103/ul Critically low 1.2-3.8 [facility] Comment on above: Performed By: #### Deedee PINON, UMICRO #### [facility] [address] [place] [address] Dr. Hardeep Rivera Lymphocytes/100 WBC (Bld) 8.2 % Critically low 20.5-60.0 [facility] Comment on above: Performed By: #### Deedee PINON, UMICRO #### [facility] [address] [place] [address] Dr. Hardeep Rivera MANUAL DIFF REQ NO Normal [facility] Comment on above: Performed By: #### E RUR, UMICRO #### [facility] [address] [place] [address] Dr. Hardeep Rivera MCH (RBC) [Entitic mass] 29.4 pg Normal 26.7-34.0 [facility] Comment on above: Performed By: #### HARI OLSONRO #### [facility] [address] [place] [address] Dr. Hardeep Rivera MCHC (RBC) [Mass/Vol] 31.8 g/dL Normal 29.9-35.2 [facility] Comment on above: Performed By: #### HARI OLSONRO #### [facility] [address] [place] [address] Dr. Hardeep Rivera MCV (RBC) [Entitic vol] 92.2 fL Normal 81.0-99.0 [facility] Comment on above: Performed By: #### HARI OLSONRO #### [facility] [address] [place] [address] Dr. Hardeep Rivera MONO # 0.8 103/ul Normal 0.3-0.8 [facility] Comment on above: Performed By: #### HARI OLSONRO #### [facility] [address] [place] [address] Dr. Hardeep Rivera Monocytes/100 WBC (Bld) 9.6 % Normal 1.7-12.0 [facility] Comment on above: Performed By: #### HARI OLSONRO #### [facility] [address] [place] [address] Dr. Hardeep Rivera NEUT # 6.3 103/ul Normal 1.4-6.5 [facility] Comment on above: Performed By: #### HARI OLSONRO #### [facility] [address] [place] [address] Dr. Hardeep Rivera Neutrophils/100 WBC (Bld) 80.5 % Critically high 43.0-75.0 [facility] Comment on above: Performed By: #### HARI OLSONRO #### [facility] [address] [place] [address] Dr. Hardeep Rivera Platelet mean volume (Bld) [Entitic vol] 10.1 fL Normal 9.5-13.5 [facility] Comment on above: Performed By: #### HARI OLSONRO #### [facility] [address] [address] [address] Hardeep Rivera PLT 188 103/ul Normal 150-450 [facility] Comment on above: Performed By: #### HARI OLSONRO #### [facility] [address] [address] [address] Hardeep Rivera RBC 4.77 106/ul Normal 4.20-5.40 [facility] Comment on above: Performed By: #### HARI OLSONRO #### [facility] [address] [place] [address] Dr. Hardeep Rivera WBC 7.8 103/ul Normal 4.0-11.0 [facility] Comment on above: Performed By: #### HARI OLSONRO #### [facility] [address] [place] [address] Dr. Hardeep Rivera PROF CHEM 8 (BAS METB)on Anion gap [Moles/Vol] 11.9 mmol/L Normal [facility] Comment on above: Performed By: #### HARI OLSONRO #### [facility] [address] [place] [address] Dr. Hardeep Rivera Calcium [Mass/Vol] 8.7 mg/dL Normal 8.5-10.1 [facility] Comment on above: Performed By: #### Deedee PINON UMBENNETTRO #### [facility] [address] [place] [address] Dr. Hardeep Rivera Chloride [Moles/Vol] 99 mmol/L Normal 98-107 [facility] Comment on above: Performed By: #### Deedee PINON UMBENNETTRO #### [facility] [address] [place] [address] Dr. Hardeep Rivera CO2 [Moles/Vol] 27.1 mmol/L Normal 21.0-32.0 [facility] Comment on above: Performed By: #### Deedee PINON UMICRO #### [facility] [address] [place] [address] Dr. Hardeep Rivera Creatinine [Mass/Vol] 1.62 mg/dL Critically high 0.55-1.02 [facility] Comment on above: Performed By: #### RANDALL OLSON #### [facility] [address] [place] [address] Dr. Hardeep Rivera EGFR-AF [place] 37 mL/min/1.73m2 Critically low >=60 [facility] Comment on above: Performed By: #### RANDALL OLSON #### [facility] [address] [place] [address] Dr. Hardeep Rivera EGFR-NON AF [place] 31 mL/min/1.73m2 Critically low >=60 [facility] Comment on above: Performed By: #### RANDALL OLSON #### [facility] [address] [place] [address] Dr. Hardeep Rivera Glucose [Mass/Vol] 73 mg/dL Critically low 74-106 Th [facility] Comment on above: Performed By: #### RANDALL OLSON #### [facility] [address] [place] [address] Dr. Hardeep Rivera Potassium [Moles/Vol] 4.0 mmol/L Normal 3.5-5.1 [facility] Comment on above: Performed By: #### RANDALL OLSON #### [facility] [address] [place] [address] Dr. Hardeep Rivera Sodium [Moles/Vol] 134 mmol/L Critically low 136-145 Th [facility] Comment on above: Performed By: #### RANDALL OLSON #### [facility] [address] [place] [address] Dr. Hardeep Rivera Urea nitrogen [Mass/Vol] 33.0 mg/dL Critically high 7.0-18.0 [facility] Comment on above: Performed By: #### RANDALL OLSON #### [facility] [address] [place] [address] Dr. Hardeep Rivera Urea nitrogen/Creatinine [Mass ratio] 20.4 mg/mg Normal [facility] Comment on above: Performed By: #### RANDALL OLSON #### [facility] [address] [place] [address] Dr. Hardeep Rivera BOX TEST SENT OUTon 04-24-20 SENT TO REF LAB 04/24/2022 Normal [facility] Comment on above: Performed By: #### RANDALL OLSON #### [facility] [address] [place] [address] Dr. Hardeep Rivera FK506 (TACROLIMUS) WHOLE BLO ODon 04-11-2022 Tacrolimus (FK506), Blood 7.3 ng/mL Normal 2.0-20.0 [facility] Comment on above: Result Comment: Trou gh (immediately following transplant) 15.0 . Trough (steady state, 2 weeks or more after transplant): 3.0 - 8.0 . Performed by LC-MS/MS technology. Performed By: #### RANDALL OLSON #### [facility] [address] [place] [address] Dr. Hardeep Rivera BOX TEST SENT OUTon 04-09-20 SENT TO REF LAB 04/09/2022 Normal [facility] Comment on above: Performed By: #### RANDALL OLSON #### [facility] [address] [place] [address] Dr. Hardeep Rivera CBC AUTO DIFFon 04-09-2022 BASO # 0.0 103/ul Normal 0.0-0.1 [facility] Comment on above: Performed By: #### HARI OLSONRO #### [facility] [address] [place] [address] Dr. Hardeep Rivera Basophils/100 WBC (Bld) 0.1 % Critically low 0.2-2.0 [facility] Comment on above: Performed By: #### HARI OLSONRO #### [facility] [address] [place] [address] Dr. Hardeep Rivera EO # 0.1 103/ul Normal 0.0-0.7 [facility] Comment on above: Performed By: #### HARI OLSONRO #### [facility] [address] [place] [address] Dr. Hardeep Rivera Eosinophils/100 WBC (Bld) 1.2 % Normal 0.9-7.0 [facility] Comment on above: Performed By: #### RANDALL OLSON #### [facility] [address] [place] [address] Dr. Hardeep Rivera Erythrocyte distribution width (RBC) [Ratio] 12.6 % Normal 11.0-15.0 [facility] Comment on above: Performed By: #### RANDALL OLSON #### [facility] [address] [place] [address] Dr. Hardeep Rivera Hematocrit (Bld) [Volume fraction] 44.1 % Normal 36.0-48.0 [facility] Comment on above: Performed By: #### RANDALL OLSON #### [facility] [address] [place] [address] Dr. Hardeep Rivera Hemoglobin (Bld) [Mass/Vol] 14.1 g/dL Normal 12.0-16.0 [facility] Comment on above: Performed By: #### RANDALL OLSON #### [facility] [address] [place] [address] Dr. Hardeep Rivera IG # 0.02 10e3/ul Normal 0.00-0.03 [facility] Comment on above: Performed By: #### RANDALL OLSON #### [facility] [address] [place] [address] Dr. Hardeep Rivera IG % 0.3 % Normal 0.0-0.5 [facility] Comment on above: Performed By: #### RANDALL OLSON #### [facility] [address] [place] [address] Dr. Hardeep Rivera LYMPH # 0.7 103/ul Critically low 1.2-3.8 [facility] Comment on above: Performed By: #### RANDALL OLSON #### [facility] [address] [place] [address] Dr. Hardeep Rivera Lymphocytes/100 WBC (Bld) 10.8 % Critically low 20.5-60.0 [facility] Comment on above: Performed By: #### RANDALL OLSON #### [facility] [address] [place] [address] Dr. Hardeep Rivera MANUAL DIFF REQ NO Normal [facility] Comment on above: Performed By: #### E RUR, UMICRO #### [facility] [address] [place] [address] Dr. Hardeep Rivera MCH (RBC) [Entitic mass] 29.3 pg Normal 26.7-34.0 [facility] Comment on above: Performed By: #### E RUR, UMICRO #### [facility] [address] [place] [address] Dr. Hardeep Rivera MCHC (RBC) [Mass/Vol] 32.0 g/dL Normal 29.9-35.2 [facility] Comment on above: Performed By: #### E KATHRIN, UMICRO #### [facility] [address] [place] [address] Dr. Hardeep Rivera MCV (RBC) [Entitic vol] 91.7 fL Normal 81.0-99.0 [facility] Comment on above: Performed By: #### E KATHRIN, ICRO #### [facility] [address] [place] [address] Dr. Hardeep Rivera MONO # 0.7 103/ul Normal 0.3-0.8 [facility] Comment on above: Performed By: #### E KATHRIN, UMICRO #### [facility] [address] [place] [address] Dr. Hardeep Rivera Monocytes/100 WBC (Bld) 10.8 % Normal 1.7-12.0 [facility] Comment on above: Performed By: #### E KATHRIN, UMICRO #### [facility] [address] [place] [address] Dr. Hardeep Rivera NEUT # 5.2 103/ul Normal 1.4-6.5 [facility] Comment on above: Performed By: #### E RUR, UMICRO #### [facility] [address] [place] [address] Dr. Hardeep Rivera Neutrophils/100 WBC (Bld) 76.8 % Critically high 43.0-75.0 [facility] Comment on above: Performed By: #### RANDALL OLSON #### [facility] [address] [place] [address] Dr. Hardeep Rivera Platelet mean volume (Bld) [Entitic vol] 9.8 fL Normal 9.5-13.5 [facility] Comment on above: Performed By: #### RANDALL OLSON #### [facility] [address] [place] [address] Dr. Hardeep Rievra PLT 200 103/ul Normal 150-450 [facility] Comment on above: Performed By: #### RANDALL OLSON #### [facility] [address] [place] [address] Dr. Hardeep Rivera RBC 4.81 106/ul Normal 4.20-5.40 [facility] Comment on above: Performed By: #### RANDALL OLSON #### [facility] [address] [place] [address] Dr. Hardeep Rivera WBC 6.7 103/ul Normal 4.0-11.0 [facility] Comment on above: Performed By: #### RANDALL OLSON #### [facility] [address] [place] [address] Dr. Hardeep Rivera PROF CHEM 8 (BAS METB)on Anion gap [Moles/Vol] 9.1 mmol/L Normal [facility] Comment on above: Performed By: #### RANDALL OLSON #### [facility] [address] [place] [address] Dr. Hardeep Rivera Calcium [Mass/Vol] 8.3 mg/dL Critically low 8.5-10.1 [facility] Comment on above: Performed By: #### RANDALL OLSON #### [facility] [address] [place] [address] Dr. Hardeep Rivera Chloride [Moles/Vol] 100 mmol/L Normal 98-107 [facility] Comment on above: Performed By: #### RANDALL OLSON #### [facility] [address] [place] [address] Dr. Hardeep Rivera CO2 [Moles/Vol] 28.1 mmol/L Normal 21.0-32.0 [facility] Comment on above: Performed By: #### E RUR, UMICRO #### [facility] [address] [place] [address] Dr. Hardeep Rivera Creatinine [Mass/Vol] 1.54 mg/dL Critically high 0.55-1.02 [facility] Comment on above: Performed By: #### E RUR, UMICRO #### [facility] [address] [place] [address] Dr. Hardeep Rivera EGFR-AF [place] 40 mL/min/1.73m2 Critically low >=60 [facility] Comment on above: Performed By: #### E RUR, UMICRO #### [facility] [address] [place] [address] Dr. Hardeep Rivera EGFR-NON AF [place] 33 mL/min/1.73m2 Critically low >=60 [facility] Comment on above: Performed By: #### E COLLINSR, UMICRO #### [facility] [address] [place] [address] Dr. Hardeep Rivera Glucose [Mass/Vol] 122 mg/dL Critically high 74-106 [facility] Comment on above: Performed By: #### E RUR, UMICRO #### [facility] [address] [place] [address] Dr. Hardeep Rivera Potassium [Moles/Vol] 4.2 mmol/L Normal 3.5-5.1 [facility] Comment on above: Performed By: #### E RUR, UMICRO #### [facility] [address] [place] [address] Dr. Hardeep Rivera Sodium [Moles/Vol] 133 mmol/L Critically low 136-145 [facility] Comment on above: Performed By: #### E RUR, UMICRO #### [facility] [address] [place] [address] Dr. Hardeep Rivera Urea nitrogen [Mass/Vol] 28.0 mg/dL Critically high 7.0-18.0 [facility] Comment on above: Performed By: #### RANDALL OLSON #### [facility] [id number] Hardeep Rivera Urea nitrogen/Creatinine [Mass ratio] 18.2 mg/mg Normal [facility] Comment on above: Performed By: #### RANDALL OLSON #### [facility] [id number] Hardeep Rivera Vital Signs Date Time Vital Sign Value Performing Clinician Faci lity 04-08-2023 06:45-0400 Diastolic blood pressure 76 mm[Hg] Richard Rob[facility] 04-08-2023 06:45-0400 Heart rate 59 /min Richard Roby [facility] 04-08-2023 06:45-0400 Hourly Rounding Richard Roby [facility] 04-08-2023 06:45-0400 Mean blood pressure 106 mm[Hg] Richard Roby [facility] 04-08-2023 06:45-0400 Respiratory rate 18 /min Richard Roby [facility] 04-08-2023 06:45-0400 SaO2% (BldA) [Mass fraction] 96 % Richard Roby [facility] 04-08-2023 06:45-0400 Systolic blood pressure 167 mm[Hg] Richard Roby [facility] 04-08-2023 05:30-0400 Diastolic blood pressure 88 mm[Hg] Richard Roby [facility] 04-08-2023 05:30-0400 Heart rate 52 /min Richard Roby [facility] 04-08-2023 05:30-0400 Hourly Rounding Richard Roby [facility] 04-08-2023 05:30-0400 Mean blood pressure 114 mm[Hg] Richard Roby [facility] 04-08-2023 05:30-0400 Respiratory rate 18 /min Richard Roby [facility] 04-08-2023 05:30-0400 SaO2% (BldA) [Mass fraction] 95 % Richard Roby [facility] 04-08-2023 05:30-0400 Systolic blood pressure 167 mm[Hg] Richard Roby [facility] 04-08-2023 04:39-0400 Diastolic blood pressure 90 mm[Hg] Richard Roby [facility] 04-08-2023 04:39-0400 Heart rate 56 /min Richard Roby [facility] 04-08-2023 04:39-0400 Hourly Rounding Richard Roby [facility] 04-08-2023 04:39-0400 Mean blood pressure 112 mm[Hg] Richard Roby [facility] 04-08-2023 04:39-0400 Respiratory rate 17 /min Richard Roby [facility] 04-08-2023 04:39-0400 SaO2% (BldA) [Mass fraction] 94 % Richard Roby [facility] 04-08-2023 04:39-0400 Systolic blood pressure 155 mm[Hg] Richard Roby [facility] 04-07-2023 21:48-0400 Respiratory rate 18 /min Richard Roby [facility] 04-07-2023 21:19-0400 Body temperature 98.06 [degF] Richard Ca [facility] 04-07-2023 21:19-0400 Heart rate 65 /min Richard Roby [facility] 04-07-2023 21:19-0400 Respiratory rate 19 /min Richard Roby [facility] Encounters Encounter Date Encounter Type Care Provider Facility Start: 02-26-2025 End: 02-26-2025 Telephone encounter Magy Hui [facility] Ophthalmology Comment on above: Appointment (With Dr Vu) Start: 02-12-2025 End: 02-12-2025 ambulatory Sho Izaguirre APRN.AMORTIZATION SCHEDULE CLERK Work Phone: Cardiology Comment on above: transplant labs Start: 02-12-2025 End: 02-12-2025 E-mail encounter from caregiver Sho J Dmitriy MONTANO.AMORTIZATION SCHEDULE CLERK Work Phone: Cardiology Start: 02-05-2025 End: 02-05-2025 ambulatory [facility] [place] [facility] Start: 01-26-2025 End: 01-26-2025 Telephone encounter Tram Fishman APRN.AMORTIZATION SCHEDULE CLERK Work Phone: Cardiology Comment on above: Medication Problem ( Attempted to call pt 01/26 x2 after hospital discharge to clarify Tacrolimus dosing of 0.5mg BID and Cellcept dosing of 500mg BID, to schedule f/u in [place] per consult note. Patient did not answer, attempted to call friend without answer. Got in touch with daughter Ana who lives in [place]. She will relay these dosing clarifications to her mother today. 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, unspecified whether assisted insulin use (HCC); Posterior vitreous detachment of both eyes Start: 01-18-2025 End: 01-21-2025 Telephone encounter Neurology Provider Neurology Comment on above: Future Appointment ( [facility]) Start: 01-18-2025 Evaluation and manag ement of inpatient MARLYNJOHN PAUL TRISTANRUBANADIR Facility:[facility] Start: 01-18-2025 End: 01-18-2025 Evaluation and management of inpatient Marlyn Tristanisaiah MANNING Work Phone: Ophthalmology Comment on above: Neovascular glaucoma of left eye, severe stage (Primary Dx); Pseudophakia Start: 01-13-2025 End: 01-13-2025 Evaluation and management of inpatient TAO ROONEY Facility:[facility] Start: 01-12-2025 End: 01-12-2025 Evaluation and management of inpatient TAO ROONEY Facility:[facility] Start: 01-12-2025 End: 01-12-2025 Unlisted evaluation and management service [facility] Work Phone: Ophthalmology Comment on above: Neovascular glaucoma of left eye, severe stage (Primary Dx); Traumatic optic neuropathy; Pseudophakia Start: 01-11-2025 End: 01-25-2025 Evaluation and management of inpatient TAO ROONEY Facility:[facility] Start: 01-09-2025 Evaluation and manag ement of inpatient JERAD NORTON [facility] Start: 01-09-2025 Evaluation and manag ement of inpatient TRAM HERNANDEZ [facility] Start: 01-09-2025 Evaluation and manag ement of [facility] Start: 01-08-2025 Evaluation and manag ement of inpatient [facility]OS Lucas [facility] Start: 01-08-2025 End: 01-10-2025 Evaluation and management of inpatient TAO ROONEY [facility] Start: 12-28-2024 End: 12-28-2024 Refill Loida Bishopwill BAGEL MAKER.AMORTIZATION SCHEDULE CLERK Work Phone: [facility] Comment on above: Refill Request Start: 10-09-2024 End: 10-09-2024 ambulatory González Shanks Facility:[facility] Start: 10-09-2024 End: 10-09-2024 Patient encounter procedure González Shanks [facility] Start: 09-14-2024 End: 09-14-2024 ambulatory [facility] [place] [facility] Start: 07-01-2024 End: 07-01-2024 ambulatory [facility] [place] [facility] Start: 06-18-2024 End: 06-18-2024 ambulatory NON STAFF [facility] Work Phone: Start: 06-18-2024 End: 06-18-2024 Departed Referred [facility] Start: 04-07-2023 End: 04-08-2023 Emergency department patient visit Richard SLaura Ca [facility] Start: 03-05-2023 End: 03-05-2023 ambulatory [...] ROGERS Facility:H1 Start: 09-08-2022 Refill Sandrita Santana APRN.AMORTIZATION SCHEDULE CLERK Work Phone: Cardiology Comment on above: Refill Request Start: 08-04-2022 End: 08-04-2022 ambulatory NANCY REYES . Facility:[facility] Start: 08-02-2022 Telephone encounter Loida Mathias APRN.AMORTIZATION SCHEDULE CLERK Work Phone: Cardiology Comment on above: Heart Transplant Fol low Up (Labs/) Start: 08-02-2022 End: 08-03-[address] TAO ROONEY . Facility:[facility] Start: 07-27-[address] TAO ROONEY . Facili ty:[facility]1 Start: 07-16-2022 End: 07-16-2022 Patient encounter procedure Eddie VERAS [facility] Start: 07-05-2022 Telephone encounter Sho Izaguirre APRN.AMORTIZATION SCHEDULE CLERK Work Phone: Cardiology Comment on above: Heart Transplant Fol low Up; Lab Meeting Start: 07-03-2022 Telephone encounter Carmelita Bateman RN [facility] r[facility]ology Comment on above: Heart Transplant Fol low Up (labs) Start: 07-03-2022 End: 07-04-[address] TAO ROONEY . Facility:[facility]1 Start: 05-28-2022 End: 05-29-[address] TAO ROONEY . Facility:[facility] Start: 05-08-2022 Telephone encounter Loida Mathias APRN.AMORTIZATION SCHEDULE CLERK Work Phone: Cardiology Comment on above: Heart Transplant Fol low Up (labs) Start: 05-07-2022 End: 05-08-[address] TAO ROONEY . Facility:[facility]1 Start: 04-24-2022 Telephone encounter Loida Mathias APRN.AMORTIZATION SCHEDULE CLERK Work Phone: Cardiology Comment on above: Heart Transplant Fol low Up Start: 04-24-2022 End: 04-25-[address] TAO ROONEY . Facility:[facility] Start: 04-20-[address] TAO ROONEY . Facili ty:[facility]1 Start: 04-11-2022 ambulatory Loida Mathias APRN.CNP Work Phone: [facility] Start: 04-11-2022 Follow-up encounter Loida Mathias APRN.AMORTIZATION SCHEDULE CLERK Work Phone: Cardiology Comment on above: Heart Transplant Fol low Up (Labs) Start: 04-09-2022 End: 04-10-[address] TAO ROONEY . Facility:[facility]1 Start: 04-06-2022 Orders Only Loida Mathias APRN.AMORTIZATION SCHEDULE CLERK Work Phone: Cardiology Comment on above: Heart replaced by tr ansplant (HCC) (Primary Dx) Start: 04-04-2022 Refill Loida Mathias APRN.AMORTIZATION SCHEDULE CLERK Work Phone: Cardiology Comment on above: Rx Refills Procedures Date Procedure Procedure Detail Performing Clinician Start: 01-24-2025 Antibody screen ANDREZ TAYLOR Comment on above: Order Comment: Speci men Type: BLOOD SPECIMENOrdering Facility: [facility] Address: [address] [place] [address] Performed By: #### T SCR ####CC MAIN BLOOD BANKCLIA [id number] [address] Start: 01-20-2025 End: 01-20-2025 Computerized ophthalmic imaging retina Marlyn Taylor PA-C Work Phone: Start: 01-15-2025 Antibody screen ANDRZE TAYLOR Comment on above: Order Comment: Speci men Type: BLOOD SPECIMENOrdering Facility: [facility] Address: [address] [place] [address] Performed By: #### T SCR ####CC MAIN BLOOD BANKCLIA [id number] [address] Start: 01-13-2025 Echocardiography MONAILSA TAYLOR Start: 01-12-2025 Gluc bld gluc mntr d ev cleared fda spec home use [facility] Provider Start: 01-11-2025 Antibody screen ANDREZ TAYLOR Comment on above: Order Comment: Speci men Type: BLOOD SPECIMENOrdering Facility: [facility] Address: [address] [place] [address] Performed By: #### T SCR ####CC MAIN BLOOD BANKCLIA [id number] [place] [id number] [facility] [place] Start: 08-10-2013 H/O: heart recipient Heart transplan arianna Loida Mathias APRN.AMORTIZATION SCHEDULE CLERK Work Phone: Start: 03-19-2006 End: 08-12-2013 H/O: heart recipient Heart replaced by transplant Loida Mathias APRN.AMORTIZATION SCHEDULE CLERK Work Phone: H/O: heart recipient Heart trans planted ([facility]LY [facility]) Loidanapoleon Mathias BAGEL MAKER.AMORTIZATION SCHEDULE CLERK Work Phone: H/O: heart recipient Heart repla nitish by transplant (FORMERLY [facility]) Loida Mathias BAGEL MAKER.AMORTIZATION SCHEDULE CLERK Work Phone: H/O: heart recipient Heart trans planted (HCC) Loida Mathias BAGEL MAKER.AMORTIZATION SCHEDULE CLERK Work Phone: H/O: heart recipient Heart trans planted (FORM[facility]LY [facility]) Loida Mathias BAGEL MAKER.AMORTIZATION SCHEDULE CLERK Work Phone: H/O: heart recipient Heart trans planted (HCC) Sho Izaguirre BAGEL MAKER.AMORTIZATION SCHEDULE CLERK Work Phone: H/O: heart recipient Hx of heart transplant( Confirmed ) Eddie VERAS H/O: heart recipient Heart repla nitish by transplant (FORM[facility]LY [facility]) Sho Izaguirre APRN.AMORTIZATION SCHEDULE CLERK Work Phone: Plan of Treatment Date Care Activity Detail Author Start: 02-09-2031 Urine microalbumin profile DTaP,Tdap,Td Vaccine (2 - Tdap) [facility] Start: 01-25-2026 Complete blood count [facility] Start: 01-25-2026 Creatinine measurement Serum Creatin ine [facility] Start: 01-21-2026 Complete blood count [facility] Start: 01-21-2026 Creatinine measurement Serum Creatin ine [facility] Start: 01-20-2026 Glaucoma screening Dilated Retinal E m [facility] Start: 01-18-2026 Complete blood count [facility] Start: 01-18-2026 Creatinine measurement Serum Creatin ine [facility] Start: 01-12-2026 Complete blood count Hem[facility] Start: 01-12-2026 Creatinine measurement Serum Creatin ine [facility] Start: 01-12-2026 Glaucoma screening Dilated Retinal E [facility] Start: 04-07-2025 End: 04-07-2025 Patient encounter procedure 04/07/2025 1:00 PM EDT Office Visit [facility] [address] [place] [address] Ry Vu MD [address] [place] [address] 02/26/2025 See phone encounter for changing this appt per [facility] Comment on above: 02/26/2025 See phone encounter for changing this appt per [facility] Start: 03-17-2025 End: 03-17-2025 Patient encounter procedure 03/17/2025 10:45 AM EDT Office Visit [facility] [address] [place] [address] Ry Vu MD [address] [place] [address] *NEW PER NADEGE CRAO/NVG OS, T2 NPDR, DFE/OCT/OPTOS Ophthalmology Comment on above: *NEW PER DANO TAYLOR AO/NVG OS, T2 NPDR, DFE/OCT/OPTOS Start: 03-15-2025 End: 03-15-2025 Patient encounter procedure 03/15/2025 9:00 AM EDT Office Visit [facility] [address] [place] [address] Aline Stark MD [address] [place], [place] [id number] Mychart message sent Ophthalmology Comment on above: Mychart message sent Start: 02-19-2025 End: 02-19-2025 Patient encounter procedure 02/19/2025 9:30 AM EDT Office Visit [facility] Medicine [address] [place] [address] Trudi Madrid, DUSTY.AMORTIZATION SCHEDULE CLERK [address] [place] [address] Hospital follow up, DREW on CKD3 Kidney Medicine Comment on above: Hospital follow up, DREW on CKD3 Start: 02-15-2025 End: 02-15-2025 Patient encounter procedure 02/15/2025 10:40 AM EDT Office Visit [facility] [address] [place] [address] Charlene Wilson MD [address] [place], [place] [phone] Left ICA Aneurysm, DSA [facility] Comment on above: Left ICA Aneurysm, D SA Start: 02-15-2025 End: 02-15-2025 Patient encounter procedure 02/15/2025 8:30 AM EDT Office Visit [facility] [address] [place] [address] Aline Stark MD [address] [place] [address] Mychart message sent Ophthalmology Comment on above: Mychart message sent Start: 02-03-2025 End: 02-03-2025 Patient encounter procedure Ophthalmology Comment on above: Dr. Vu in [place] in 2-3 weeks (cannot be later) per Dr Taylor *NEW PER DANO TAYLOR AO/NVG OS, T2 NPDR, DFE/OCT/OPTOS Start: 02-01-2025 End: 02-01-2025 Patient encounter procedure 02/01/2025 1:00 PM EST Office Visit [facility] [address] [place] [address] Charlene Wilson MD [address] [place], [place] [phone] Left ICA Aneurysm, DSA [facility] Comment on above: Left ICA Aneurysm, D SA Start: 01-21-2025 End: 01-21-2025 Insj non-tunneled central venous cath age 4 yr/> INSERTION NON-TUNNELED CV CATHETER OVER AGE 5 DREW (acute kidney injury) (FORMERLY [facility]) 01/21/2025 5:49 PM EST [facility] ANGIO HB6 Start: 01-20-2025 End: 01-20-2025 Patient encounter procedure 01/20/2025 2:15 PM EST Office Visit [facility] [address] [address] Marlyn Taylor PA-C [address] [place], [place] [phone] 01/20/25 @ 2:15pm Arleth Taylor Ophthalmology Comment on above: 01/20/25 @ 2:15pm Merritt Taylor Start: 12-02-2024 Advance Directive Discussion Advance Directive Discussion [facility] Start: 08-02-2024 Covid-19 Vaccine ( season) Covid-19 Vaccine ( season) [facility] Start: 08-02-2024 Influenza vaccination Influenza Vacc ine (#1) [facility] Start: 09-02-2022 Diabetes Screening Diabetes Screenin g [facility] Start: 08-02-2022 Influenza vaccination INFLUENZA (#1) [facility] Start: 07-19-2022 End: 09-18-2022 Tacrolimus [Mass/volume] in Blood TACROLIMUS/FK-506 BL Lab Routine Heart transplanted (HCC) Expected: 07/19/2022 (Approximate), Expires: 09/18/2022 [facility] Work Phone: Comment on above: Expected: 07/19/2022 (Approximate), Expires: 09/18/2022 Start: 05-21-2022 End: 07-21-2022 TACROLIMUS/FK-506 BL TACROLIMUS/FK-506 BL Lab Routine Heart transplanted (HCC) Expected: 05/21/2022, Expires: 07/21/2022 [facility] Work Phone: Comment on above: Expected: 05/21/2022 , Expires: 07/21/2022 Start: 04-23-2022 End: 06-23-2022 TACROLIMUS/FK-506 BL TACROLIMUS/FK-506 BL Lab Routine Heart transplanted (HCC) Expected: 04/23/2022, Expires: 06/23/2022 [facility] Work Phone: Comment on above: Expected: 04/23/2022 , Expires: 06/23/2022 Start: 04-09-2022 End: 06-09-2022 CBC W Auto Differential panel - Blood CBC + DIFF Lab Routine Heart replaced by transplant (HCC) Expected: 04/09/2022, Expires: 06/09/2022 [facility] Work Phone: Comment on above: Expected: 04/09/2022 , Expires: 06/09/2022 Start: 04-09-2022 End: 06-09-2022 Comprehensive metabolic 2000 panel - Serum or Plasma COMP METABOLIC PANEL Lab Routine Heart replaced by transplant (HCC) Expected: 04/09/2022, Expires: 06/09/2022 [facility] Work Phone: Comment on above: Expected: 04/09/2022 , Expires: 06/09/2022 Start: 04-09-2022 End: 04-06-2023 HEART/LUNG REC POST TX DSA HEART/LUNG REC POST TX DSA ALLOGEN Routine Heart replaced by transplant ([facility]) Expected: 04/09/2022, Expires: 04/06/2023 [facility] Work Phone: Comment on above: Expected: 04/09/2022 , Expires: 04/06/2023 Start: 04-09-2022 End: 06-09-2022 LIPID PANEL BASIC LIPID PANEL BASIC Lab Routine Heart replaced by transplant (HCC) Expected: 04/09/2022, Expires: 06/09/2022 [facility] Work Phone: Comment on above: Expected: 04/09/2022 , Expires: 06/09/2022 Start: 04-09-2022 End: 06-09-2022 Magnesium [Mass/volume] in Serum or Plasma MAGNESIUM BLD Lab Routine Heart replaced by transplant ([facility]) Expected: 04/09/2022, Expires: 06/09/2022 [facility] Work Phone: Comment on above: Expected: 04/09/2022 , Expires: 06/09/2022 Start: 04-09-2022 End: 06-09-2022 TACROLIMUS/FK-506 BL TACROLIMUS/FK-506 BL Lab Routine Heart replaced by transplant ([facility]) Expected: 04/09/2022, Expires: 06/09/2022 [facility] Work Phone: Comment on above: Expected: 04/09/2022 , Expires: 06/09/2022 Start: 04-09-2022 End: 06-09-2022 URINALYSIS, DIPSTICK ONLY URINALYSIS, DIPSTICK ONLY Lab Routine Heart replaced by transplant ([facility]) Expected: 04/09/2022, Expires: 06/09/2022 [facility] Work Phone: Comment on above: Expected: 04/09/2022 , Expires: 06/09/2022 Start: 12-02-2021 ADVANCE DIRECTIVE DISCUSSION ADVANCE DIRECTIVE DISCUSSION [facility] Start: 09-26-2021 COVID-19 VACCINE (3 - Pfizer risk 4-dose series) COVID-19 VACCINE (3 - Pfizer risk 4-dose series) [facility] Start: 09-26-2021 COVID-19 VACCINE (3 - Pfizer risk series) COVID-19 VACCINE (3 - Pfizer risk series) [facility] Start: 03-04-2020 Hepatitis B surface antibody level LDL CHOLESTEROL [facility] Start: 2019 RSV Vaccine (1 - 1-d ose 75+ series) RSV Vaccine (1 - 1-dose 75+ series) [facility] Start: 06-14-2015 Hemoglobin A1c measurement HbA1C [facility] Start: 06-14-2015 Hemoglobin A1c/Hemoglobin.total in Blood HBA1C [facility] Start: 11-01-2013 PNEUMOCOCCAL: 65+ (3 - PCV) PNEUMOCOCCAL: 65+ (3 - PCV) [facility] Start: 2009 [facility] Start: 1994 SHINGRIX VACCINE (1 of 2) SHINGRIX VACCINE (1 of 2) [facility] Start: 1963 SHINGRIX VACCINE (1 of 2) SHINGRIX VACCINE (1 of 2) [facility] Start: 1963 Urine microalbumin profile DTAP,TDAP,TD (1 - Tdap) [facility] Start: 1962 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 DISEASE VISIT ANNUAL PCP TEAM CHRONIC DISEASE VISIT [facility] Start: 1962 Anxiety Screening Anxiety Screening [facility] Start: 1962 BP CONTROLLED (<130/80) BP CONTROLLE D (<130/80) [facility] Start: 1962 Depression Screening Depression Scre ening [facility] Start: 1955 Screening for malign ant neoplasm of cervix Cervical Cancer Screening [facility] Start: 1954 3 comp foot exam completed DIABETIC FOOT EXAM [facility] Start: 1954 Diabetic foot examination Diabetic Foot Exam [facility] Start: 1954 Hepatitis B screening URINE ALBUMIN:CREATININE RATIO [facility] Start: 1954 Hepatitis C antibody , confirmatory test DILATED RETINAL EXAM [facility] Start: 1950 PNEUMOCOCCAL: 65+ (1 - PCV) PNEUMOCOCCAL: 65+ (1 - PCV) [facility] Insj tunneled cvc w/ o subq port/participant administrator age 4 yr/> INSERTION TUNNELED CV CATHETER DREW (acute kidney injury) (HCC) ANGIO HB6 [facility] Immunizations Immunization Date Immunization Notes Care Provider Fa cility 09-28-2023 influenza virus vaccine, unspecified formulation González Shanks [facility] 05-20-2023 pneumococcal 20-matthew nt conjugate vaccine González Shanks [facility] 07-14-2022 influenza virus vaccine, unspecified formulation González Shanks [facility] 06-05-2022 SARS-CoV-2 mRNA ([id number] se) vaccine Morgan SALAM [facility] 08-29-2021 SARS-CoV-2 (COVID-19 ) mRNA BNT-162b2 vax Morgan SALAM [facility] 08-02-2021 SARS-CoV-2 (COVID-19 ) mRNA BNT-162b2 vax Morgan SALAM [facility] 07-05-2021 influenza virus vaccine, unspecified formulation Morgan SALAM [facility] 09-29-2020 influenza, unspecifi ed formulation Morgan SALAM [facility] 07-24-2020 influenza virus vaccine, unspecified formulation Morgan SALAM [facility] 09-02-2017 influenza virus vaccine, unspecified formulation Morgan SALAM [facility] 08-07-2017 pneumococcal conjuga te vaccine, 13 valent Morgan SALAM [facility] 08-14-2016 influenza virus vaccine, unspecified formulation Morgan SALAM [facility] 09-29-2015 pneumococcal conjuga te vaccine, 13 valent Morgan SALAM [facility] 08-04-2015 influenza virus vaccine, unspecified formulation Morgan SALAM [facility] 09-15-2014 influenza virus vaccine, whole virus Loida Mathias APRN.AMORTIZATION SCHEDULE CLERK Work Phone: [facility] 09-15-2014 influenza, whole Morgan SALAM [facility] 11-01-2012 pneumococcal polysaccharide vaccine, 23 valent Loida Iammarino BAGEL MAKER.AMORTIZATION SCHEDULE CLERK Work Phone: [facility] 12-28-2009 novel [id number], all formulations Loida Iammarino BAGEL MAKER.AMORTIZATION SCHEDULE CLERK Work Phone: [facility] Work Phone: 08-19-2009 influenza virus vaccine, unspecified formulation Loida Iammarino BAGEL MAKER.AMORTIZATION SCHEDULE CLERK Work Phone: [facility] 09-01-2006 influenza virus vaccine, unspecified formulation Loida Iammarino BAGEL MAKER.AMORTIZATION SCHEDULE CLERK Work Phone: [facility] Work Phone: 09-01-2006 pneumococcal polysaccharide vaccine, 23 valent Loida Iammarino BAGEL MAKER.AMORTIZATION SCHEDULE CLERK Work Phone: [facility] Work Phone: NEGATED: Highlighted row has not occurred!07-12-2022 influenza virus vaccine, unspecified formulation Morgan RITO [facility] Payers Date Payer Category Payer Self-pay 2022 Medicare UHC MEDICARE UHC DUAL COMPLETE HMO SNP [id number] 2022-Present [phone] [address] [place] [address] Medicare [id number] 2022 Medicare UHC MEDICARE UHC DUAL COMPLETE HMO SNP [id number] 2022-Present [phone] [address] [place] [address] Medicare [id number] 2022 Medicare (Managed Care) [id number]. [id number] 1959 Medicaid [id number] 1959 Medicare [id number] 1959 Self-pay [id number] 1959 Unknown [id number] 1944 Unknown [id number] 2.16.840.1.289701.3.579.2.5 1944 Unknown [id number] 2.16.840.1.694480.3.579.2.5 93 1944 Unknown [id number] 2.16.840.1.152284.3.579.2.5 1944 Unknown [id number] 2.16.840.1.971262.3.579.2.5 93 1944 Unknown [id number] 2.16.840.1.428367.3.579.2.5 1944 Unknown [id number] 2.16.840.1.309865.3.579.2.5 1944 Unknown [id number] 2.16.840.1.421975.3.579.2.5 1944 Unknown [id number] 2.16.840.1.476907.3.579.2.5 1944 Unknown [id number] 2.16.840.1.412013.3.579.2.5 1944 Unknown [id number] 2.16.840.1.131188.3.579.2.5 1944 Unknown [id number] 2.16.840.1.661184.3.579.2.5 1944 Unknown [id number] 2.16.840.1.029713.3.579.2.5 1944 Unknown [id number] 2.16.840.1.669660.3.579.2.5 1944 Unknown [id number] 2.16.840.1.799207.3.579.2.5 1944 Unknown [id number] 2.16.840.1.484078.3.579.2.5 1944 Unknown [id number] 2.16.840.1.386422.3.579.2.5 93 1944 Unknown [id number] 2.16.840.1.904263.3.579.2.5 93 1944 Unknown [id number] 2.16.840.1.916044.3.579.2.5 93 1944 Unknown [id number] 2.16.840.1.588372.3.579.2.7 27 Unknown [id number] 2.16.840.1.805808.3.579.2.5 93 Social History Date Type Detail Facility Start: 05[facility]13-[facility] Work Phone: History of tobacco use Cigarette Smoker C [facility] Work Phone: Start: 09-07-2019 End: 01-20-2025 Alcohol intake Current non-drinker of alcohol (finding) [facility] Start: 1945 Sex Assigned At Not on file C [facility] Start: 07-12-2022 Never smoked t obacco (finding) [facility] Start: 09-07-2019 End: 01-20-2025 Female [facility] History of tobacco use Current smoker [facility] Start: 05-13-2019 End: 01-20-2025 Cigarettes smoked current (pack per day) - Reported 0.3 [facility] Start: 05-13-2019 Tobacco use and exposure Smokeless tobacco non-user [facility] Start: 1945 Sex Assigned At Female [facility] Goals Date Patient Goal Desired Activity /State Personal health goal Functional Status Date Assessment Result Facility 01-25-2025 Are you deaf, or do you have serious difficulty hearing No 01/25/2025 1:00 PM Rachel Phillip RN No [facility] 01-25-2025 Are you blind, or do you have serious difficulty seeing, even when wearing glasses No 01/25/2025 1:00 PM Rachel Phillip RN No [facility] 01-25-2025 Do you have serious difficulty walking or climbing stairs No 01/25/2025 1:00 PM Rachel Phillip RN No [facility] 01-25-2025 Do you have difficul ty dressing or bathing No 01/25/2025 1:00 PM Rachel Phillip, SHELDON No [facility] 01-25-2025 Because of a physica l, mental, or emotional condition, do you have difficulty doing errands alone such as visiting a physician's office or shopping No 01/25/2025 1:00 PM Rachel Phillip, SHELDON No [facility] 04-07-2023 Functional Status N/A [facility] 07-05-2015 Are you deaf, or do you have serious difficulty hearing No 07/05/2015 2:33 PM Trish AyalaRn) (Hist), RN No [facility] 07-05-2015 Are you blind, or do you have serious difficulty seeing, even when wearing glasses No 07/05/2015 2:33 PM Trish AyalaRn) (Hist), RN No [facility] 07-05-2015 Do you have serious difficulty walking or climbing stairs No 07/05/2015 2:33 PM Trish AyalaRn) (Hist), RN No [facility] 07-05-2015 Do you have difficul ty dressing or bathing No 07/05/2015 2:33 PM Trish AyalaRn) (Hist), RN No [facility] 07-05-2015 Because of a physica l, mental, or emotional condition, do you have difficulty doing errands alone such as visiting a physician's office or shopping No 07/05/2015 2:33 PM Trish AyalaRn) (Hist), RN No [facility] Mental Status Date Assessment Result Facility 01-25-2025 Because of a physica l, mental, or emotional condition, do you have serious difficulty concentrating, remembering, or making decisions No 01/25/2025 1:00 PM Rachel Phillip RN No [facility] 07-05-2015 Because of a physica l, mental, or emotional condition, do you have serious difficulty concentrating, remembering, or making decisions No 07/05/2015 2:33 PM EDT Trish Aquino (Rn) (Hist), RN No [facility] Clinical Notes 11-14-2017 to 02-26-2025 Telephone Encounter [...] 8.45 am same day in NEW patient spot. Pt was booked in wrong type of appt slot. [facility] 02-26-2025 Miscellaneous Notes I left message at home number. When patient calls back please move the appt on 03/17/[address] Vu from 10.45 to 8.45 am same day in NEW patient spot. Pt was booked in wrong type of appt slot. documented in this encounter [facility] 02-05-2025 Note [place] [facility] - [facility] Subjective Sylvia Herrera is a 79 y.o. year old female patient being seen for follow up [facility] and [facility] for DREW. Doing much better s/p hospital [...] Alcohol use: Not Currently Drug use: Never [facility] Visit of 10/30/2021: Sylvia is seen [...] in 2007. She is followed by the [facility] cardiology service. She has had [...] atrial cavity is (more content not included)... [facility] 01-26-2025 Telephone encounter Note Attempted to call pt 01/26 x2 after hospital discharge to clarify Tacrolimus dosing of 0.5mg BID and Cellcept dosing of 500mg BID, to schedule f/u in [place] per consult note. Patient did not answer, attempted to call friend without answer. Got in touch with daughter Ana who lives in [place]. She will relay these dosing clarifications to her mother today. States they are attempting to move her to low income housing closer to [place] soon. Tram Fishman APRN.ODETTE Advanced Heart Failure & Cardiac Transplantation [phone] [facility] Work Phone: 01-26-2025 Miscellaneous Notes Attempted to call pt 01/26 x2 after hospital discharge to clarify Tacrolimus dosing of 0.5mg BID and Cellcept dosing of 500mg BID, to schedule f/u in [place] per consult note. Patient did not answer, attempted to call friend without answer. Got in touch with daughter Ana who lives in [place]. She will relay these dosing clarifications to her mother today. States they are attempting to move her to low income housing closer to [place] soon. Tram Fishman APRN.AMORTIZATION SCHEDULE CLERK Advanced [facility] Failure [facility] Cardiac Transplantation [phone] documented in this encounter [facility] 01-25-2025 Note [facility] 01-24-2025 Note [facility] 01-23-2025 Note [facility] 01-23-2025 Note [facility] 01-22-2025 Note [facility] 01-22-2025 Note [facility] 01-22-2025 Note [facility] 01-21-2025 Note [facility] 01-21-2025 Note [facility] 01-21-2025 Note [facility] 01-21-2025 Note [facility] 01-21-2025 Note Date of Procedure 01/20/2025. R Programmer Information Printer Helper: JOHNNY. Start time: 3:57 PM. Stop time: 3:57 PM. Disc Right Eye Normal. Left Eye Cupping, Pallor. Macula Right Eye Microaneurysms, Hemorrhage. Periphery Right Eye Hemorrhage. Left Eye Hemorrhage. [facility] 01-20-2025 Note Date of Procedure 01/20/2025. R Programmer Information Printer Helper: JOHNNY. Start time: 3:57 PM. Stop time: 3:57 PM. OCT Macula Interpretation Right Eye Normal foveal contour. Findings include Intraretinal fluid, Subretinal fluid. Left Eye Abnormal foveal contour. Findings include IS/OS junction, Atrophy. Interval Change Right Eye Initial. Left Eye Initial. [facility] 01-20-2025 History of Present illness Narrative Patient presents for follow up on NVG. Saw her 2 days ago but was [...] CKD, heart transplant, HTN - Evaluated by manufacturing automation engineer resident at bedside 01/12/25 and noted [facility] [...] Will have her see Dr. Vu in [place] in 2-3 weeks - Try again for [...] control - Continue close follow up with PCP/whizzer operator - Exam today shows few dot heme [...] with Dr. Vu in 2-3 weeks in [place] - Try for FA at this visit [...] new symptoms develop. documented in this encounter [facility] 01-20-2025 Note [facility] 01-20-2025 Note [facility] 01-20-2025 Note [facility] 01-19-2025 Note [facility] 01-18-2025 Note [facility] 01-18-2025 History of Present illness Narrative Patient not feeling well today. Will have her reschedule for Saturday documented in this encounter [facility] 01-18-2025 Note HNO ID: [id number] Author: MARLYN TAYLOR PA-C Service: ? Author Type: Physician Case Repairer Type: Progress Notes Filed: 01/18/2025 14:32 Note Text: Patient not feeling well today. Will have her reschedule for Saturday [facility] 01-18-2025 Telephone encounter Note Patient scheduled for appointment on 02/01/[address] Wilson at 1 PM at [facility]. Patient admitted and will be notified of appointment at discharge. [facility] 01-18-2025 Miscellaneous Notes Patient scheduled for appointment on 02/01/[address] Wilson at 1 PM at [facility]. Patient admitted and will be notified of appointment at discharge. Images from the original note were not included. OSH imaging/records received from [facility]: January 18, 2025 -2024 Records available in Care Everywhere PENDING: -2024 Images Images from the original note were not included. Hospital Discharge Follow Up Order: Follow Up Appointment - Neurosurgery; 14-30 days; [facility] Provider; CHARLENE WILSON [[id number]] (Order [id number]) [facility] Images in [facility] and [facility] (Requesting from [employer]) documented in this encounter [facility] 01-18-2025 Telephone encounter Note Images from the original note were not included. OSH imaging/records received from [facility]: January 18, 2025 -2024 Records available in Care Everywhere PENDING: -2024 Images [facility] 01-18-2025 Telephone encounter Note Images from the original note were not included. Hospital Discharge Follow Up Order: Follow Up Appointment - Neurosurgery; 14-30 days; [facility] Provider; CHARLENE WILSON [[id number]] (Order [id number]) [facility] Images in Chart and [facility] (Requesting from [employer]) [facility] 01-18-2025 Note [facility] 01-17-2025 Note [facility] 01-17-2025 Note [facility] 01-17-2025 Note [facility] 01-16-2025 Note [facility] 01-15-2025 Note [facility] 01-15-2025 Note [facility] 01-15-2025 Note SARS-COV-2 (AGENT OF COVID-19) RNA: Not detected INFLUENZA A RNA: Detected INFLUENZA B RNA: Not detected RESPIRATORY SYNCYTIAL VIRUS (RSV) RNA: Not detected [facility] Comment on above: Performed By: #### 9 [id number] ####[facility] LABCLIA [id number] [place] [address] [place] 01-14-2025 Note [facility] 01-14-2025 Note [facility] 01-14-2025 Note [facility] 01-14-2025 Note [facility] 01-13-2025 Note [facility] 01-13-2025 Note [facility] 01-13-2025 Note [facility] 01-13-2025 Note [facility] 01-12-2025 Note [facility] 01-12-2025 Note [facility] 01-12-2025 History of Present illness Narrative Urgent follow up visit for NVG. Neovascular Glaucoma, Left Eye ?Remote GRALAND/RVO, Left eye - 79 y/o F with [...] and [facility] is NLP so will defer CAN PATCHER and Avastin at this time. - Continue [...] follow commands. HR 63, BP 89/48, and [id number] with BG 95. MARGUERITE called immediately. On arrival she became nonresponsive without a pulse to palpation but then returned to consciousness a couple of minutes later. She was then taken by the emergency response team back to the floor for suvbsequent workup. Paco Vega MD Ophthalmology Resident Case discussed with Dr. Yeh and Dr. Alberto. documented in this encounter [facility] 01-12-2025 Note [facility] 01-12-2025 Note [facility] 01-11-2025 Note [facility] 01-11-2025 Note [facility] 01-11-2025 Note [facility] 01-11-2025 Note [facility] 01-10-2025 Note Hospital Medicine Discharge Summary Final [...] female with the above history remitted to [facility] on 01/08 as a direct transfer from [facility] for which she initially presented on 01/05 for generalized weakness, nausea, vomiting, diarrhea. There was concern for left lower lobe pneumonia as well as UTI and she was found to have worsening kidney function. Creatinine was up to 6 at [place]. the patient also had elevated BNP to her history of heart transplant she was transferred to [facility]. Unfortunately we do not have heart transplant service here so the patient was ultimately transferred to [facility] on 01/10. During her hospitalization, [...] deferred as the patient was transferred to [facility]. Surgical, Invasive or Diagnostic Procedures Done During Admission: None Consultations During Admission: Cardiology, Infectious Disease, Nephrology, and Neurology Dear Dr. Toribio MD, [place] is advised to follow up with you within 1-2 weeks. Items to follow up in ambulatory setting: Pending clinical course at [facility] Follow-up with: Cardiology, Nephrology, and Neurology Scheduled appointments: Future Appointments Date Time Provider Department Center 01/27/2025 10:15 AM Anisha Daly MD [facility] Your medication list START taking these [...] Creon 24,000-76,000 -120,000 unit capsule Generic drug: lbubou-qfdsrwiq-rnxcoqp dorzolamide-timolol 22.3-6.8 mg/mL ophthalmic solution Commonly known [...] -- -- 1.44* (more content not included)... [facility] 01-10-2025 Note Attestation signed by Sherice Callahan MD at 01/22/2025 2:58 PM Agree with treatment plan. Stroke plan of care: Sylvia Herrera is a 79 y.o. female with a history of heart transplant on immunosuppressants, DREW and CKD, and right-sided gofz-dh-qalnajvq pleural effusion. We are asked to see [...] Stroke Fellow Patient seen with Dr. Callahan. [facility] 01-10-2025 Note Subjective 79 year old [...] Value Ventricular Rate 63 Atrial Rate 63 AL Interval 170 QRS DURATION 106 QT Interval 442 QTC CALCULATION(BAZETT) 452 P Means 53 R-Means 84 T Wave Means 29 Impression Normal sinus rhythm Right atrial [...] kidney injury- improving Neurology will sign off rTam Hernandez MD [facility] 01-10-2025 Note Attestation signed by Harjinder Reynaga MD at 01/10/2025 7:13 PM I evaluated, discussed and reviewed the patient on rounds with the medical coding technician. I agree with their assessment and plan [...] Value Ventricular Rate 63 Atrial Rate 63 AL Interval 170 QRS DURATION 106 QT Interval 442 QTC CALCULATION(BAZETT) 452 P Means 53 R-Means 84 T Wave Means 29 Impression Normal sinus rhythm Right atrial [...] Bubble Study Result Date: 01/09/2025 1 1 [facility] Heart Station [address] [place] [address] [phone] (fax) Echocardiogram-[facility] Name: SYLVIA HERRERA Study Date: 01/09/2025 03:38 PM B/P: 127 mmHg/63 mmHg HR: 65 bpm Date of : 1945 Location: [facility] Height: 62 in. Age: 79 year(s) Patient [...] Right Ventricle: The (more content not included)... [facility] 01-10-2025 Note Hospital Medicine Daily Progress Note - 01/10/2025 7:37 AM; Room: [address] [place] [address] Admission: 01/08/2025 7:06 PM; Length of stay: 2 days THE HOSPITALIST TEAM PREFERS TO USE [employer] FOR NON-URGENT COMMUNICATION 7AM-7PM. IF I DO NOT RESPOND WITHIN 20 MINUTES OR URGENT MATTERS, PLEASE CALL THROUGH THE DISPOSAL OPERATOR. FROM 7PM-7AM, PLEASE PAGE [phone](COVR). Code Status: Full Code Barriers to Discharge: Acidemia, DREW - pending bed availability at [facility] Expected Discharge Date: 1-2 days Discharge Destination: [facility] Overview Patient is seen for evaluation and management of DREW. Subjective Patient seen and examined. More alert today and interactive. States she feels so-so and no specific complaints. Appears more hydrated on exam. Pending transfer to [facility] Physical Exam Visit Vitals BP 147/80 (BP [...] Problem: Acute kidney injury superimposed on CKD ([facility]) Active Problems: Status post heart transplantation ([facility]) Gastroenteritis Pneumonia of left lower lobe due [...] services, everyone in agreement for transfer to [facility] in case this happens to be rejection clinical picture -[facility] has accepted, pending bed availability L cranial [...] Hypothyroidism -continue levothyroxine Hypertension -Continue home Coreg Hyperlipidemia -Continue home statin Exocrine pancreatic insufficiency [...] Daily mycophenolate, 500 mg, oral, BID pancrelipase (Lrx-Rfnn-Wfmz), 4 capsule, oral, TID with meals pramipexole, 0.5 mg, oral, Nightly simvastatin, 20 mg, oral, q PM [Held by provider] sodium bicarbonate, 650 mg, oral, TID tacrolimus, 1 mg, oral, BID BETA sodium bicarbonate 150 mEq in sterile water 1,000 mL infusion, 75 mL/hr, Last Rate: 75 mL/hr (01/10/25 0206) Pertinent Investigations Hematology: Results from last 7 days Lab Units 01/10/2541801/09/25 0701/08/25 2155 WBC AUTO 10*3/uL 25.42* 17.00* 15.23* [...] BILIRUBIN DIRECT mg/dL (more content not included)... [facility] 01-09-2025 Note Speech [employer] ology Speech/Language Pathology Clinical Swallow Assessment Patient Name: Sylvia Herrera : 1945 Today's Date: 01/09/2025 Recommendations 1) ELEVATOR MECHANIC to follow 2) NPO. Short term alt [...] cardiomyopathy, s/p heart transplant in 2005 at [facility], CKD, 3B, anxiety, exocrine pancreatic sufficiency, hypothyroidism, hypertension and hyperlipidemia presented to [facility] as a direct transfer from [facility]. Patient initially presented there on 01/05/25 because of generalized weakness, nausea, vomiting and diarrhea over the last week. Patient also had decreased oral intake and had productive cough. Upon evaluation in the ER at [facility], patient was found to have left [...] with her history of heart transplant, her real estate investment analyst, Dr. Daly was contacted and agreed for the patient to be transferred to [facility] for nephrology consult. On my assessment, patient [...] diet: Pt unable to state, resides [facility] Current diet NPO History of Intubation: No [...] once patient has improvement in mentation Assessment/Plan ELEVATOR MECHANIC Assessment ELEVATOR MECHANIC Problems/Impairments: Swallowing impairments Speech Assessment: Unable to complete given patient lethargy. She was able to state name and only Prognosis: Fair Evaluation/Treatment Tolerance: Patient limited by fatigue Medical Staff Made Aware: Yes Plan Treatment/Interventions: Swallow function ELEVATOR MECHANIC Plan: Skilled ELEVATOR MECHANIC ELEVATOR MECHANIC Frequency: 3 times per week ELEVATOR MECHANIC Discharge Recommendations: Inpatient rehab facility placement, penitentiary facility placement Diet Recommendations: NPO, [employer]ick [employer] Protocol ELEVATOR MECHANIC - OK to Discharge: (No) Goals Multi-Disciplinary [...] 01/09/25 01/23/25 -- Written/Dictated by Addis Justice CCC-ELEVATOR MECHANIC at 2:47 PM [facility] 01-09-2025 Note Hospital Medicine Daily Progress Note - 01/09/2025 8:05 AM; Room: [address] [place] [address] Admission: 01/08/2025 7:06 PM; Length of stay: 1 days THE HOSPITALIST TEAM PREFERS TO USE [employer] FOR NON-URGENT COMMUNICATION 7AM-7PM. IF I DO NOT RESPOND WITHIN 20 MINUTES OR URGENT MATTERS, PLEASE CALL THROUGH THE DISPOSAL OPERATOR. FROM 7PM-7AM, PLEASE PAGE [phone](COVR). Code Status: Full Code Barriers to Discharge: [...] order TTE, unable to access imaging from [place]. Will cancel order if images can be sent over. -May need to consider diuresis if suspicion of cardiorenal syndrome but in setting of DREW will forego for now as she is on room air -Also considering transfer to [facility] for h/o heart transplant; she unfortunately has [...] Daily mycophenolate, 500 mg, oral, BID pancrelipase (Ano-Kpxu-Apjj), 4 capsule, oral, TID with meals pramipexole, 0.5 mg, oral, Nightly simvastatin, 20 mg, oral, q PM sodium bicarbonate, 650 mg, oral, TID tacrolimus, 1 mg, oral, BID BETA Pertinent Investigations Hematology: Results from last 7 days Lab Units 01/09/25 0726 01/08/25 2155 WBC AUTO 10*3/uL 17.00* 15.23* HEMOGLOBIN [...] , FREET4 , CORTISOL , FEV1 , DJE3SEQ , DLCO , RVSP , HDL , LDL No results found for: HUWBMJBW52 , IRON , TIBC , C3 , C4 , THELMA , CANCA , ASO , PSA , CEA , CA125 , CA199 , AFP , CA153 Imaging CT head wo IV contrast Narrative: Cl (more content not included)... [facility] 01-08-2025 Note Patient will be on R ocephin IV daily. [facility] 01-08-2025 Note Rocephin 1 g IV tigre y. Will hold on starting azithromycin before we know patient's QT Mucinex as needed for cough Albuterol inhaler as needed for shortness of breath Follow-up on Legionella antigen in the urine [facility] 01-08-2025 Note Symptomatic treatmen t Follow-up on C. difficile testing [facility] 01-08-2025 Note Cardiology consult Per report, patient had echo done 1 day ago which showed normal EF Patient's BNP was elevated but her kidney function worsened significantly. [facility] 01-08-2025 Note Nephrology consult Renal ultrasound Will avoid and hold nephrotoxic medications [facility] 01-08-2025 Note Hospital Medicine History and Physical 01/08/2025 9:36 PM THE HOSPITALIST TEAM PREFERS TO USE [employer] FOR NON-URGENT COMMUNICATION 7AM-7PM. IF I DO NOT RESPOND WITHIN 20 MINUTES OR URGENT MATTERS, PLEASE CALL THROUGH THE DISPOSAL OPERATOR. FROM 7PM-7AM, PLEASE PAGE [phone](COVR). Chief Complaint No chief complaint on file. History of Present Illness Sylvia Herrera is an 79 y.o. female who came from home with past medical history of nonischemic cardiomyopathy, s/p heart transplant in 2005 at [facility], CKD, 3B, anxiety, exocrine pancreatic sufficiency, hypothyroidism, hypertension and hyperlipidemia presented to [facility] as a direct transfer from [facility]. Patient initially presented there on 01/05/25 because of generalized weakness, nausea, vomiting and diarrhea over the last week. Patient also had decreased oral intake and had productive cough. Upon evaluation in the ER at [facility], patient was found to have left [...] with her history of heart transplant, her real estate investment analyst, Dr. Daly was contacted and agreed for the patient to be transferred to [facility] for nephrology consult. On my assessment, patient [...] Plan Acute kidney injury superimposed on CKD ([facility]) Nephrology consult Renal ultrasound Will avoid and hold nephrotoxic medications Status post heart transplantation ([facility]) Cardiology consult Per report, patient had echo [...] be followed durin (more content not included)... [facility] 09-14-2024 Note [place] [facility] Subjective Sylvia Herrera is a 78 [...] branch block Status post heart transplantation (CMS/HCC) DERW (acute kidney injury) (CMS/HCC) Anemia Chronic diarrhea [...] in 2007. She is followed by the [facility] cardiology service. She has had [...] on 11/19/16. Similar (more content not included)... [facility] 07-01-2024 Note [place] [facility] Subjective Sylvia Herrera is a 78 y.o. year old female patient being seen for follow up [facility] for syncope. Says she's been [...] in 2007. She is followed by the [facility] cardiology service. She has had [...] There is no (more content not included)... [facility] 04-08-2023 Hospital Discharge instructions Patient Education [...] improvement. Follow these instructions at home: Take qiin-mkq-osxbbwy and prescription medicines only as told by [...] provider. Document Revised: 05/29/2022 Document Reviewed: 05/29/2022 [employer] Patient Education 2022 [place]. 04/08/2023 08:56:02 Nonspecific Chest Pain, Adult Nonspecific [...] Follow these instructions at home: Medicines Take tolx-hvo-aidqubg and prescription medicines only as told by [...] provider. Document Revised: 02/01/2022 Document Reviewed: 02/01/2022 [employer] Patient Education 2022 [place]. Follow Up Care 04/07/2023 21:19:10 With:[employer] Address: [address] [place] [address]- [phone] Business (1) When:Within 3 Day(s) [facility] 04-07-2023 Evaluation + Plan note Extrac arianna from: Title:ED Note Author:Rcihard Ca DO Date :04/07/23 Chest pain (R07.9: [...] Troponin 9 Hr. XR Chest Single View [facility]09-01-2022 Miscellaneous Notes* Telephone Encounter - Mami Weems - 08/02/2022 1:41 PM EDT Patient had labs drawn 08/02/22, uploaded to scanned docs. documented in this encounter[facility] Miscellaneous Notes* Telephone Encounter - Sho Izaguirre [...] another team. Sho Izaguirre APRN, CNP Pager: [phone] July 05, 2022 10:42 AM Post Heart Transplant Nurse Practitioner documented in this encounterUniversity [facility]08-[facility]-2022 Miscellaneous Notes* Telephone Encounter - Mami Weems - 07/03/2022 12:59 PM EDT Patient had labs drawn 07/03/22, uploaded to scanned docs. documented in this encounterUniversity [facility]als [facility]06-07-2022 Miscellaneous Notes* Addendum Note - [...] uploaded to scanned docs. Mami Weems Administrative Property Coordinator documented in this encounterUniversity Hospitals [facility]05-24-2022 Miscellaneous Notes* Telephone Encounter - Mami Weems - 04/24/2022 1:31 PM EDT Patient left message that she had labs drawn today. Mami Weems Administrative Property Coordinator Post Heart Transplant J3-4 documented in this encounterUniversity Hospitals [facility]05-11-2022 History of Present illness Narrative* [...] reports she can no longer travel to [place]. Shedoes not have a ride, she has no family or friends to lean on. She has made an appt with a local [employer]. She will ask him if there are any transplant doctors or centers near her and potentiallyneed to transfer her care. She will keep us updated. Loida Mathias APRN.ODETTE April 12, 2022 2:25 PM documented in this encounterUniversity Hospitals [facility]12-14-2017 History of Past illness Narrative* [...] of this encounter (statuses as of 04/05/2022) [facility] History of Past illness Narrative* [...] of this encounter (statuses as of 04/06/2022) [facility] History of Past illness Narrative* [...] of this encounter (statuses as of 04/12/2022) [facility] History of Past illness Narrative* [...] of this encounter (statuses as of 04/24/2022) [facility] History of Past illness Narrative* [...] of this encounter (statuses as of 05/08/2022) [facility] History of Past illness Narrative* [...] of this encounter (statuses as of 07/03/2022) [facility] History of Past illness Narrative* [...] of this encounter (statuses as of 07/05/2022) [facility] History of Past illness Narrative* [...] of this encounter (statuses as of 08/02/2022) [facility] History of Past illness Narrative* [...] encounter (statuses as of 09/11/2022) [facility] note Future Appointments Appointment Date:08/01/2022 01:50:00 PM Scheduled Provider: Location:[facility] Appointment Type:Surgery FT Diagnostic Tests Pending * CMV Antibody IgM 07/16/22 Future Scheduled Tests Laboratory* Fecal WBC Lactoferrin 07/12/22 * Giardia lamblia, Direct Detection EIA 07/12/22 * O & P Exam, Routine 07/12/22 * Clostridium difficile by PCR 07/12/22 * [facility]22 [facility] (HCC) Heart replaced by transplant documented in this encounter [facility]* Diagnosis Heart replaced by transplant (HCC)- Primary Heart replaced by transplant documented in this encounter [facility] note* Diagnosis Heart replaced by transplant (HCC)- Primary Heart replaced by transplant Heart transplanted (HCC) Heart replaced by transplant documented in this encounter [facility] note* Diagnosis Heart transplanted (HCC) Heart replaced by transplant documented in this encounter [facility] note* Diagnosis Heart transplanted (HCC) Heart replaced by transplant documented in this encounter [facility] noteNo assessment information [facility]: Evaluation note* Diagnosis Neovascular glaucoma of left eye, 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 Pseudophakia Lens replaced by other means documented in this encounter [facility] note* Diagnosis Neovascular glaucoma of left eye, severe stage- Primary Pseudophakia Lens replaced by other means documented in this encounter [facility] note* Diagnosis Neovascular glaucoma of left eye, severe stage- Primary Hypertensive retinopathy of right eye Hypertensive retinopathy Pseudophakia of both eyes Lens replaced by other means 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 N[facility]ative No data available for this section [facility] No data available for this section [facility] data available for this section [facility] Advance Directives No Advanced Directives Records FoundDocuments on File Type Date Recorded Patient Manufacturing Finance Manager Expl anation Advance Directive(s) 11/14/2017 5:44 AM Advance Directive(s) 01/02/2012 12:00 AM Advance Directive(s) 01/17/2007 12:00 AM Documents on File Type Date Recorded Patient Manufacturing Finance Manager Expl anation Advance Directive(s) 01/02/2012 Advance [...] or prosecute any alcohol or drug abuse patient.[facility] CenterIn the event this information is protected by the Federal Confidentiality of Alcohol and Drug Abuse Patient Records regulations: The Federal rules restrict any use of the information to criminally investigate or prosecute any alcohol or drug abuse patient.[facility] CenterIn the event this information is protected by the Federal Confidentiality of Alcohol and Drug Abuse Patient Records regulations: The Federal rules restrict any use of the information to criminally investigate or prosecute any alcohol or drug abuse patient.[facility] CenterIn the event this information is protected by the Federal Confidentiality of Alcohol and Drug Abuse Patient Records regulations: The Federal rules restrict any use of the information to criminally investigate or prosecute any alcohol or drug abuse patient.[facility] CenterIn the event this information is protected by the Federal Confidentiality of Alcohol and Drug Abuse Patient Records regulations: The Federal rules restrict any use of the information to criminally investigate or prosecute any alcohol or drug abuse patient.[facility] CenterIn the event this information is protected by the Federal Confidentiality of Alcohol and Drug Abuse Patient Records regulations: The Federal rules restrict any use of the information to criminally investigate or prosecute any alcohol or drug abuse patient.[facility] CenterIn the event this information is protected by the Federal Confidentiality of Alcohol and Drug Abuse Patient Records regulations: The Federal rules restrict any use of the information to criminally investigate or prosecute any alcohol or drug abuse patient.[facility] CenterIn the event this information is protected by the Federal Confidentiality of Alcohol and Drug Abuse Patient Records regulations: The Federal rules restrict any use of the information to criminally investigate or prosecute any alcohol or drug abuse patient.[facility] CenterIn the event this information is protected by the Federal Confidentiality of Alcohol and Drug Abuse Patient Records regulations: The Federal rules restrict any use of the information to criminally investigate or prosecute any alcohol or drug abuse patient.[facility] CenterIn the event this information is protected by the Federal Confidentiality of Alcohol and Drug Abuse Patient Records regulations: The Federal rules restrict any use of the information to criminally investigate or prosecute any alcohol or drug abuse patient.[facility] CenterIn the event this information is protected by the Federal Confidentiality of Alcohol and Drug Abuse Patient Records regulations: The Federal rules restrict any use of the information to criminally investigate or prosecute any alcohol or drug abuse patient.[facility] CenterIn the event this information is protected by the Federal Confidentiality of Alcohol and Drug Abuse Patient Records regulations: The Federal rules restrict any use of the information to criminally investigate or prosecute any alcohol or drug abuse patient.[facility] CenterIn the event this information is protected by the Federal Confidentiality of Alcohol and Drug Abuse Patient Records regulations: The Federal rules restrict any use of the information to criminally investigate or prosecute any alcohol or drug abuse patient.[facility] CenterIn the event this information is protected by the Federal Confidentiality of Alcohol and Drug Abuse Patient Records regulations: The Federal rules restrict any use of the information to criminally investigate or prosecute any alcohol or drug abuse patient.[facility] CenterIn the event this information is protected by the Federal Confidentiality of Alcohol and Drug Abuse Patient Records regulations: The Federal rules restrict any use of the information to criminally investigate or prosecute any alcohol or drug abuse patient.[facility] CenterIn the event this information is protected by the Federal Confidentiality of Alcohol and Drug Abuse Patient Records regulations: The Federal rules restrict any use of the information to criminally investigate or prosecute any alcohol or drug abuse patient.[facility] CenterIn the event this information is protected by the Federal Confidentiality of Alcohol and Drug Abuse Patient Records regulations: The Federal rules restrict any use of the information to criminally investigate or prosecute any alcohol or drug abuse patient.[facility] CenterIn the event this information is protected by the Federal Confidentiality of Alcohol and Drug Abuse Patient Records regulations: The Federal rules restrict any use of the information to criminally investigate or prosecute any alcohol or drug abuse patient.[facility] Reason for Visit (unrecogniz ed section and content) Reason Comments Neovascular glaucoma of left eye Specialty Diagnoses / Procedures Referred By Ronald t Referred To Contact HOSP INPATIENT Diagnoses DREW (acute kidney injury) (HCC) DREW Procedures EVAL AND TREAT [facility] [id number] [place] [address] Phone: tel: Referral ID Status Reason Start Date Expiration Date Visits Re quested Visits Authorized [id number] 1 1 Reason Comments Rx Refills Reason Comments Heart Transplant Follow Up Labs Reason Comments Heart Transplant Follow Up Reason Comments Heart Transplant Follow Up labs Reason Comments Heart Transplant Follow Up Lab Meeting Reason Comments Refill Request Reason Comments Neovascular Glaucoma Follow Up Reason Comments Future Appointment [place] Reason Comments Medication Problem Attempted to call pt 01/26 x2 after hospital discharge to clarify Tacrolimus dosing of 0.5mg BID and Cellcept dosing of 500mg BID, to schedule f/u in [place] per consult note. Patient did not answer, attempted to call friend without answer. Got in touch with daughter Ana who lives in [place]. She will relay these dosing clarifications to her mother today. States they are attempting to move her to low income housing closer to [place] soon. Reason Comments Appointment With [facility] (unrecognized sec tion and content) Financial Services Professional Relationship Specialty Start Date End Date Tao Rooney MD [address] [id number] PCP - General Family Practice 05/13/19 Financial Services Professional Relationship Specialty Start Date End Date Tao Rooney MD [address] [id number] PCP - General Family Practice 05/13/19 Financial Services Professional Relationship Specialty Start Date End Date Tao Rooney MD [address] [id number] PCP - General Family Practice 05/13/19 Financial Services Professional Relationship Specialty Start Date End Date Tao Rooney MD [address] [place] [address] PCP - General Family Practice 05/13/19 Financial Services Professional Relationship Specialty Start Date End Date Tao Rooney MD [address] [place] [address] PCP - General Family Practice 05/13/19 Financial Services Professional Relationship Specialty Start Date End Date Tao Rooney MD [address] [place] [address] PCP - General Family Medicine 05/13/19 Team Status: Inactive Member Role Status Dates NON STAFF Attending Provider Active Start: Ju 2023 End: June 18, 2024 Financial Services Professional Relationship Specialty Start Date End Date Tao Rooney MD PCP - General Family Medicine 05/13/19 Financial Services Professional Relationship Specialty Start Date End Date Tao Rooney MD PCP - General Family Medicine 05/13/19 Financial Services Professional Relationship Specialty Start Date End Date Tao Rooney MD PCP - General Family Medicine 05/13/19 Sang Guerra MD [address] [place] [address] Referring Internal Medicine 01/18/25 Financial Services Professional Relationship Specialty Start Date End Date Tao Rooney MD PCP - General Family Medicine 05/13/19 Sang Guerra MD [address] [place] [address] Referring Internal Medicine 01/18/25 Financial Services Professional Relationship Specialty Start Date End Date Tao Rooney MD PCP - General Family Medicine 05/13/19 Sang Guerra MD [address] [place] [address] Referring Internal Medicine 01/18/25 Financial Services Professional Relationship Specialty Start Date End Date Tao Rooney MD PCP - General Family Medicine 05/13/19 Sang Guerra MD [address] [place] [address] Referring Internal Medicine 01/18/25 INFORMATION SOURCE (unrecogn ized section and content) DATE CREATED AUTHOR 03/09/2023 [facility] DATE CREATED AUTHOR AUTHOR'S ORGANIZ ATION 07/12/2024 [facility] DATE CREATED AUTHOR AUTHOR'S ORGANIZ ATION 10/11/2024 Raheem Mcgraw [facility] DATE CREATED AUTHOR AUTHOR'S ORGANIZ ATION 02/27/2025 [facility] DATE CREATED AUTHOR AUTHOR'S ORGANIZ ATION 03/17/2025 [facility] Goals (unrecognized section and content) Goals [...] BE BASED ON THE PRIMARY CLINICAL RECORDS. [employer] provides no warranty or guarantee of the accuracy or completeness of information in this document.
[2025-05-25 09:00] LABS: Alanine Aminotransferase 32 U/L (14-59); Albumin Level 3.3 g/dL (3.4-5.0); Alkaline Phosphatase 348 U/L (46-116); Anion Gap 16.3; Aspartate Amino Transferase 29 U/L (15-37); BUN Creatinine Ratio 17.8; Bilirubin Total 0.4 mg/dL (0.2-1.0); Calcium 6.5 mg/dL (8.5-10.1); Carbon Dioxide 23.2 mmol/L (21.0-32.0); Chloride 104 mmol/L (98-107); Estimated GFR (African America 16 (>=60 mL/min/1.73m^2); Estimated GFR (Non-African Ame 13 (>=60 mL/min/1.73m^2); Globulin 3.4 g/dL; Glucose 105 mg/dL (74-106); Potassium 5.5 mmol/L (3.5-5.1); Sodium 138 mmol/L (136-145); Total Protein 6.7 g/dL (6.4-8.2)
[2025-05-25 09:05] LABS: Magnesium 0.9 mg/dL (1.8-2.4)
== END 2025-05-25 08:09 | disposition home or self-care (01) ==
LOC: LAB 08:14
PROVIDERS: PCP Family Medicine; Visit Provider Family Medicine
DX: N18.31 Chronic kidney disease, stage 3a (principal); Z94.1 Heart transplant status
CPT/HCPCS: 80053; 80197; 83735; 84100

== ENCOUNTER 2025-05-25 08:18 | Outpatient (OUT) | payer MEDICARE, MEDICAID, SELFPAY ==
[2025-05-27 19:07] LABS: Tacrolimus (FK506), Blood 6.5 ng/mL (5.0-20.0)
== END 2025-05-25 08:19 | disposition home or self-care (01) ==
LOC: LAB 08:20
PROVIDERS: PCP Family Medicine; Visit Provider Internal Medicine Interventional Cardiology
DX: Z94.1 Heart transplant status (principal)
CPT/HCPCS: 36415; 80197

== ENCOUNTER 2025-07-05 11:28 | Outpatient (OUT) | payer MEDICARE, MEDICAID, SELFPAY ==
--- OUTSIDE RECORDS SUMMARY | 2025-06-21 11:00 | XMS_ITS | Encounter Summary ---
Author Organization [facility] Address [address] [place] [address] Care Team Providers Care Pipeline Engineer Name Role Phone Vijay Davis MD Primary Care Provider [phone] Reason for Referral * Consultation (Routine) - Pending Review Specialty Diagnoses / Procedures Referred By Ronald yoo Referred To Contact Gastroenterology Diagnoses Chronic diarrhea Procedures MN OFFICE/OUTPATIENT NEW HIGH MDM 60 MINUTES Jameel Daly MD [address] [place] [address] Phone: tel: fax: Referral ID Status Reason Start Date Expiration Date Visits Requested Visits Authorized [id number] Pending Review Specialty Services Required 06/21/2025 06/21/2026 1 1 * Imaging (Routine) - Pending Review Specialty Diagnoses / Procedures Referred By Ronald yoo Referred To Contact Cardiology Diagnoses Status post heart transplantation (CMS/HCC) Pulmonary hypertension (CMS/HCC) Procedures Transthoracic echo (TTE) complete Jameel Daly MD [address] [place] [address] Phone: tel: fax: Referral ID Status Reason Start Date Expiration Date Visits Requested Visits Authorized [id number] Pending Review Perform Procedure 06/21/2025 06/21/2026 1 1 Encounter Details Date Type Department Care Team (Late st Contact Info) Description 06/21/2025 11:00 AM EDT Office Visit [facility] [address] [place] [address] Jameel Daly MD [address] [facility] [place] [id number] Status post heart transplantation (CMS/HCC) (Primary Dx); Pulmonary hypertension (CMS/HCC); Primary hypertension; Stage 5 chronic kidney disease (CMS/HCC); Chronic diarrhea Social History Tobacco Use Types Packs/Day Years Used Date Smoking Tobacco: Never Smokeless Tobacco: Never Alcohol Use Standard Drinks/Week Comments Not Currently 0 (1 standard drink = 0.6 oz pur e alcohol) [facility] Utilities Answer Date Recorded In the past 12 months has th e [employer], gas, oil, or water company threatened to shut off services in your [...] any time in the past [address] [facility], were you homeless or living in a usp (including now)? No 01/08/2025 Hunger Vital Sign Answer Date Recorded Within the past 12 months, y ou worried that your food would run out before you got the money to buy more. Never true 01/08/20 25 Ran Out of Food in the Last Year Not on file 01/08/2025 Comments No Sex and Gender Information Value Date Recorded Sex Assigned at Female 06/09/2025 2:36 PM EDT Legal Sex Female 9:41 PM EDT Gender Identity Female 06/09/2025 2:36 PM EDT Sexual Orientation Heterosexual or Straight 08/2025 2:36 PM EDT documented as of this encounter Last Filed Vital Signs Vital Sign Reading Time Taken Comments Blood Pressure 160/86 06/21/2025 11:21 AM EDT Pulse 71 06/21/2025 11:21 AM EDT Temperature - - Respiratory Rate - - Oxygen Saturation 100% 06/21/2025 11:21 AM EDT Inhaled Oxygen Concentration - - Weight 45.4 kg (100 lb) 06/21/2025 11:21 AM EDT Height 157.5 cm (5' 2 ) 06/21/2025 11:21 AM EDT Body Mass Index 18.29 06/21/2025 11:21 AM EDT documented in this encounter Progress Notes * Jameel Daly MD - 06/21/2025 11:00 AM EDT Images from the original note were not included. [place] [facility] Subjective Alia Herrera is a 79 y.o. year old female patient being seen for follow up [facility] and [facility]. 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 She denies chest pain, SOB, and palpitations. Patient Active Problem List Diagnosis Nonischemic congestive [...] Stage 3b chronic kidney disease (CMS/HCC) Thrombocytopenia Neovascular glaucoma, left, indeterminate stage Venous retinal branch occlusion (CMS/HCC) Family History Family history unknown: Yes Social History Tobacco Use Smoking status: Never Smokeless tobacco: Never Substance Use Topics Alcohol use: Not Currently Drug use: Never HPI Visit of 10/30/2021: Alia is seen as a new patient. She [...] She is followed by the [facility] cardiology service. She has had no [...] hematology on 03/18/19 and it was felt thatit was laboratory abnormality and did not represent [...] GFR 39, cholesterol 94, HDL 43, triglycerides 71,LDL 37. Hemoglobin A1c 5.2%, TSH 1.06. Additional history according to the prior record: Dobutamine echocardiogram 12/28/2011: Negative for ischemia, resting LVEF 64%. Cath 12/26/2010: Normal coronary arteries. Echocardiogram 06/27/2011: LVEF 65%, normal RV size and systolic function, no significant valvular abnormality. Cardiac Catheterization ( 11/14/17) Normal coronary arteries and filling pressures. [Use LEFT groinfor caths] Echocardiogram (11/14/17) left ventricle is normal in size. Left ventricular systolic function is hyperdynamic. EF = 75 ? 5% (visual est.) Left ventricular diastolic function was not evaluated dueto heart transplant. The right ventricle is normal in size. Right ventricular systolic function is low normal. Suspect prominent TV pap muscle (clip 110). The left atrial cavity is dilated. There areno significant valvular abnormalities. Exam was compared with [...] This is a low risk scan. Gated Stress FBP LVEF % 83 EKG: NSR 90 Chest Xray:RESULT: Lines, tubes, and devices: Status post median sternotomy for heart transplant. Retained epicardial pacing leads are noted.Lungs and pleura: The lungs are clear without focal consolidation or overt pulmonary vascular congestion. No pleural effusion or pneumothorax is present.Cardiomediastinal silhouette: Stable cardiomediastinal silhouette. Other: There are degenerative changes of the thoracic spine. Cholecystectomy clips are noted in theright upper quadrant. NO DSE d/t previous reactions Visit of 01/15/2022: She is seen in follow-up. After last visit of 10/30/2021, she reported elevated blood pressure and I started her on [id number] mg twice daily. Today she reports that she has not been feeling well with labetalol and she hastried cutting it in half however that did not suit her. She continues to feel lightheaded with it. She stopped it 3 days ago and has felt fine since then. He also reports that her Transplant hot blast worker at [facility] has moved to [place] and she is not clear about whether she will be following with [facility] cardiology or not. Otherwise she reports that she feels okay with no other issues. Echocardiogram 12/13/2021: LV systolic function is hyperdynamic, EF 70 to 75%. No significant wall motion abnormalities. Unable to assess diastolic function. Biatrial enlargement consistent with hearttransplant. The right ventricle is normal in size and systolic function. No significant valvular abnormalities. Visit of 07/23/2022: She is seen in follow-up. Recently her tacrolimus level was reported as low. A follow-up tacrolimus level was 12.4. Her tacrolimus was adjusted by [facility] as noted below: Telephone Encounter - Sho Izaguirre APRN.ODETTE - 07/05/2022 10:40 AM EDT: 07/03/22 labs: FK: 12.4, Cr 1.64, BUN [...] she has established care with another team. Soh Izaguirre APRN, ODETTE Pager: [phone] July 05, 2022 10:42 AM Post Heart Transplant Nurse Practitioner She is due to get follow-up tacrolimus testing soon. Her current main complaint is diarrhea that has been happening for the past 5 months. 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 She denies chest pain or shortness of breath. She reports that her blood pressure has been elevated. She is under a lot of stress. Visit of 01/07/2023: She is seen in follow-up. she recently has been having lower extremity edema. She was seen by her PCP and was given Lasix with resolution initially of the edema but resurgence of the edema after stopping Lasix. Lasix was resumed a couple days ago. She denies chest pain and shortness of breath. No palpitations. No syncope. Her blood pressure has been better controlled after I had previously added amlodipine 5 mg daily. Of note her blood testingwas significant for normal BNP level. Her echocardiogram showed normal ventricular function and mildly elevated right-sided pressures. Visit of 02/11/2023: She is seen in follow-up via telemedicine. At last visit and due to leg edema I stopped amlodipine and increase metoprolol to tartrate to 50 mg twice daily given that her blood pressure will increase after stopping amlodipine. Also her thyroid medicine was adjusted. She has not been needing to take furosemide. after the above changes her leg edema resolved completely. Today she reports that she has been doing well she has absolutely no symptoms Visit of 08/07/2023: She is seen in follow-up. Today she reports that she has been doing reasonably well recently. As noted above her leg edema has resolved completely after stopping amlodipine. Her main issue has been elevated blood pressure after stopping the amlodipine. She just had tacrolimus level drawn yesterday. The results are not available during this visit. Previously I had asked for a stress test and this was not done yet. She denies chest pain or shortness of breath on exertion. No palpitations. She reports that she had an episode of passing out after getting COVID. At that time she was taken to another hospital and evaluation was negative. Visit 11/12/2023: She is seen in follow-up. Following last visit and due to low tacrolimus level I increased tacrolimus to 1 mg twice daily. She is due to have follow-up tacrolimus level on 11/18/2023. She reports having one episode of palpitations (skipped beat) that was short- lived. She has some shortness of breath on exertion. She says that since having COVID in 04/2023 she has not been herself. Her blood pressure has been elevated (150 at home). At last visit I added doxazosin 2 mg daily but she stopped taking it due to nausea. Update 02/03/2024: She is seen in follow-up. In December 2023 she was admitted to the [facility] with syncope. She had not been eating or drinking much over the few days preceding the presentation. She had significant orthostasis on admission and syncope with standing. She was treated with IV hydration. Apparently she had acute UTI and was given antibiotics. CT scan of the head was negative for bleed. Prior to that she had developed pneumonia. Since then there has been no recurrence of syncope. Today she reports that she has been doing reasonably well. She has occasional dizziness and lightheadedness. No shortness of breath. No leg edema. No chest pain. No palpitations. Update 07/01/2024: She is seen in follow-up as an urgent visit. She recently had an episode of syncope. She was admitted 06/17/2024 - 06/18/2024 to [facility] and underwentblood testing and was found to have a UTI and was treated with antibiotics. She also had a 7 day holter monitor that she just returned back. No results available yet. She has been having diarrhea for about 1.5 weeks. She says that she tries to drink whenever she can. She was having shortness of breath on exertion but not anymore. She reports occasional palpitation. No chest pain. Visit of 09/14/2024: She is seen in follow-up. She reports that she has been having worsening shortness of breath on exertion recently. Her echocardiogram in July 2024 showed normal ventricular function and mildly elevated right-sided pressures. No significant valvular dysfunction. She also complains of episodes of sharp chest pain for which she takes Tums and those appear to resolve. She continues to be evaluated and treated for her pancreas issues. She takes Creon. Her recent tacrolimus level is in good range. Her creatinine has been slightly worsening. She will be seeing nephrology soon. No recent episodes of syncope. Her blood pressure today is borderline low. Visit of 02/05/2025: She is seen in follow-up. Recently she was admitted at [facility] transferred from the [facility] after she presented with diarrhea and weakness and acute renal insufficiency. There was concern for UTI and pneumonia. She wastreated with antibiotics. While she was admitted a stroke alert was called as she was exhibiting left-sided ptosis and anisocoria. 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 She was ultimately transferred to [facility] on 01/10/2025. She had anemia and this was attributed to bleeding ulcers in the stomach and small intestine found on upper endoscopy. She was started on antacids. She also developed influenza infection and C. difficile diarrhea also norovirus infections. Upon discharge from [facility] she was treated with a course of vancomycin and was recommended not to resume mycophenolate until 01/30/2025 after completing vancomycin therapy for C. difficile infection. her most recent blood work on 01/25/2025 showed hemoglobin of 8.3 and EGFR of 20 which is close to her baseline. Today she reports that she has been improving after the recent hospitalization but she still feels weak and fatigued. She has no shortness of breath. No leg edema. She has occasional palpitations. Nochest pain. Visit of 06/21/2025: She is seen in follow-up. In May 2025 she was admitted to [facility] with acute on chronic kidney insufficiency. She was recentlyevaluated by nephrology Dr. Shola Spivey and additional renal testing is due tomorrow. Dr. Spiveytalked to her about the potential for needing dialysis. Today she reports that she has been doing relatively well. She denies chest pain and shortness of breath. She has no lower extremity edema. She says that she continues to have occasional diarrhea andsometimes it is significant. She has no dizziness or lightheadedness. Her blood pressure is elevated. She continues to be on tacrolimus and mycophenolate for immunosuppression. Most recent tacrolimus level in May 2025 was 5.5. Review of Systems Constitutional: Positive for malaise/fatigue and weight loss (9# since Sep 2024). Cardiovascular: Positive for palpitations. Respiratory: Positive for cough. All other systems reviewed and are negative. Objective Visit Vitals BP 160/86 (BP Location: Left arm, Patient Position: Sitting) Pulse 71 Ht 1.575 m (5' 2 ) Wt 45.4 kg (100 lb) LMP (LMP Unknown) SpO2 100% BMI 18.29 kg/m?? OB Status Postmenopausal Smoking Status Never BSA 1.41 m?? Physical Exam Constitutional: Appearance: She is well-developed. She is not ill-appearing. HENT: Head: Normocephalic and atraumatic. Nose: Nose normal. Eyes: General: No scleral icterus. Pupils: Pupils are equal, round, and reactive to light. Neck: Thyroid: No thyromegaly. Vascular: No JVD. Cardiovascular: Rate and Rhythm: Normal rate and regular rhythm. Pulses: Radial pulses are 2+ on the right side and 2+ on the left side. Heart sounds: Normal heart sounds. No murmur heard. No friction rub. No gallop. Pulmonary: Effort: Pulmonary effort is normal. No respiratory distress. Breath sounds: Normal breath sounds. No wheezing or rales. Chest: Chest wall: No tenderness. Abdominal: General: Bowel sounds are normal. There is no distension. Palpations: Abdomen is soft. Tenderness: There is no abdominal tenderness. Musculoskeletal: General: No swelling. Cervical back: Neck supple. Skin: General: Skin is warm and dry. Neurological: General: No focal deficit present. Mental Status: She is alert and oriented to person, place, and time. Psychiatric: Mood and Affect: Mood normal. Behavior: Behavior is cooperative. Judgment: Judgment normal. Allergies Allergies Allergen Reactions Promethazine Hcl Hallucinations and Other hallucinations hallucinations hallucinations hallucinations Promethazine Medications Current Outpatient Medications: alendronate (Fosamax) 70 mg tablet, Take 70 mg by mouth every other day., Disp: , Rfl: aspirin 81 mg EC tablet, Take 1 tablet every day by oral route., Disp: , Rfl: carvedilol (Coreg) 25 mg tablet, Take 1 tablet (25 mg) by mouth with breakfast and with evening meal. (Patient taking differently: Take 12.5 mg by mouth with breakfast and with evening meal.), Disp: 180 tablet, Rfl: 3 citalopram (CeleXA) 20 mg tablet, Take 1 tablet by mouth in the morning., Disp: , Rfl: clonazePAM (KlonoPIN) 0.5 mg tablet, Take 0.5 mg by mouth in the morning and at bedtime., Disp: , Rfl: ferrous sulfate 324 mg (65 mg iron) EC tablet, Take 65 mg by mouth with breakfast., Disp: , Rfl: levothyroxine (Synthroid, Levoxyl) 112 mcg tablet, take 1 tablet by mouth every other day (alternates with 100mcg tablet), Disp: , Rfl: ndmlzs-yjzxbetc-rqgnexd (Creon) 24,000-76,000 -120,000 unit capsule, Take 4 capsules by mouth with breakfast, with lunch, and with evening meal., Disp: , Rfl: magnesium oxide (Mag-Ox) 400 mg tablet, 500 mg in the morning., Disp: , Rfl: mycophenolate (Cellcept) 250 mg capsule, take 2 capsules by mouth every morning and 2 capsules every evening, Disp: , Rfl: omega-3 1,000 mg capsule capsule, Take 2,000 mg by mouth in the morning., Disp: , Rfl: pramipexole (Mirapex) 0.5 mg tablet, Take 1 tablet by mouth at bedtime., Disp: , Rfl: simvastatin (Zocor) 20 mg tablet, Take 1 tablet by mouth in the evening., Disp: , Rfl: sodium bicarbonate 650 mg tablet, Take 1,300 mg by mouth three times daily., Disp: , Rfl: tacrolimus (Prograf) 1 mg capsule, TAKE 1 CAPSULE BY MOUTH IN THE MORNING AND AT BEDTIME, Disp: 180capsule, Rfl: 3 carvedilol (Coreg) 6.25 mg tablet, Take 1 tablet (6.25 mg) by mouth with breakfast and with eveningmeal., Disp: 180 tablet, Rfl: 3 dorzolamide-timolol (Cosopt) 22.3-6.8 mg/mL ophthalmic solution, Administer 1 drop into the left eye two times daily., Disp: , Rfl: escitalopram (Lexapro) 10 mg tablet, Take 10 mg by mouth in the morning. (Patient not taking: Reported on 06/21/2025), Disp: , Rfl: ganciclovir in sodium chloride 0.9 % 100 mL IVPB, Do not start before January 12, 2025., Disp: , Rfl: Recent Labs Blood testing 06/07/2025: Potassium 5.2, BUN 46, creatinine 3.5, EGFR 13. Blood testing 05/30/2025: Potassium 5.1, BUN 62, creatinine 3.0, EGFR 15. Hemoglobin 7.3, platelets 118. Blood testing 05/28/2025: Potassium 5.0, BUN 52, creatinine 3.2, EGFR 14. Blood testing 05/25/2025: Potassium 5.5, BUN 61, creatinine 3.42, EGFR 13. Tacrolimus level 05/25/2025: 5.5 ng/mL. Blood testing 03/01/2025: Potassium 4.6, BUN 77, creatinine 3.45, EGFR 13, hemoglobin 9.4, [id number]. Blood testing 01/25/2025: Hemoglobin 8.3, platelets 265, tacrolimus 6.7, BUN 53, creatinine 2.37, potassium 4.8, EGFR 20. Tacrolimus level 09/07/2024: 9.2. Tacrolimus 07/07/2024: 13.7. Blood testing 09/05/2024: Hemoglobin 10.6, hematocrit 33.8, platelets 232, potassium 3.5, BUN 44, creatinine 2.41, EGFR 19 alkaline phosphatase 292, AST 26, ALT 27, TSH 3.142. Blood testing 08/02/2024: Potassium 4.0, BUN 30, creatinine 2.2, EGFR 22, AST 24, ALT 31, alkaline phosphatase 2222, high-sensitivity troponin 5.6, TSH 1.916, lipase 456. Blood testing 06/18/2024: WBC 7, hemoglobin 10.9, platelets 178, potassium 3.3, BUN 36, creatinine 1.7, EGFR 35, high-sensitivity troponin 5.8, LFTs within normal limits except for elevated alkaline phosphatase at 200 [46-116], NT proBNP 1805, triglycerides 73, cholesterol 83, LDL 27, HDL 41, TSH 2.275, T46.1, free T31.73. Blood testing 03/31/2024: stable renal function. CBC and lipids are good. Tacrolimus level was 12.5 ng/ml. Blood testing 01/01/2024: Hemoglobin 11, platelets 121, potassium 3.9, BUN 33, creatinine 1.58, EGFR32 AST 140, ALT 159, alkaline phosphatase 115, troponin high-sensitivity 11.9, NT proBNP 14,990. [On admission NT proBNP was 2196] Tacrolimus level 11/21/2023: 8.6 ng/mL. Tacrolimus level 10/16/2023: 1.4 ng/mL. Blood testing 09/05/2023: Potassium 4.4, BUN 31, creatinine 1.77, GFR 28, LFTs normal, [id number], cholesterol 138, LDL 6070, HDL 50. Tacrolimus level 08/02/2022: Ref Range & Units 5 mo ago Tacrolimus/FK506 5.0 - 20.0 ng/mL 4.7 Low Tacrolimus 05/10/2023: 1.8 Tacrolimus 02/26/2023: 5.8. Tacrolimus 02/09/2023: 1.4. Blood testing 06/07/2023: Hemoglobin 14, platelets 190, potassium 4.3, BUN 37, creatinine 1.86, EGFR 26, LFTs normal. Blood testing 12/11/2022: Hemoglobin 13.5, platelets 226, potassium 4.2, BUN 38, creatinine 1.49, EGFR 34, LFTs within normal limits except ALP 192 mildly elevated, NT proBNP 467, TSH 6.4 [0.358-3.74], normal T4 and T3 uptake. Imaging and other tests ECG 03/03/2025: Sinus rhythm, incomplete right bundle branch block, possible right ventricular hypertrophy. Echocardiogram 01/13/2025: CONCLUSIONS: - Technically difficult exam due to body habitus. - Exam indication: Monitoring for rejection in a cardiac transplant recipient - The left ventricle is normal in size. Left ventricular systolic function is normal. EF = 61 ?? 5% (2D biplane) - The right ventricle is normal in size. Right ventricular systolic function is normal. - The left atrial cavity is severely dilated. - Estimated right ventricular systolic pressure is 53 mmHg consistent with moderate pulmonary hypertension. Estimated right atrial pressure is 8 mmHg based on IVC assessment. - Exam was compared with the prior echocardiographic exam performed on 11/14/2017. Similar findings. Echocardiogram 01/09/2025: Left Ventricle: The left ventricle is normal size. Global left ventricular systolic function is normal. The EF is 60 % visually. Left ventricular wall thickness is at upper normal limits. Right Ventricle: The right ventricle is normal in size. Normal right ventricular systolic function. Doppler studies suggest moderately elevated right sided pressures (elevated pulmonary pressure). Left Atrium: The left atriumm is enlarged, consistent with transplantation. Right Atrium: The right atrium is enlarged, consistent with transplantation. Mitral Valve: Mild mitral regurgitation. Aortic Valve: Mild aortic valve regurgitation. Tricuspid Valve: Mild tricuspid regurgitation. ECG 01/08/2025: Normal sinus rhythm Right atrial enlargement Incomplete right bundle branch block Borderline ECG ECG 08/02/2024: Sinus rhythm, incomplete right bundle branch block, T wave abnormality, possible anterior ischemia. Chest x-ray 08/02/2024: No acute cardiac or pulmonary findings. Echocardiogram 07/13/2024: Global left ventricular systolic function is hyperdynamic, visually estimated ejection fraction is 65 to 70%. The right ventricle is small in size with normal systolic function. Mild left ventricular hypertrophy. Mild tricuspid regurgitation. Mildly elevated right ventricular systolic pressure, RVSP 39 mmHg. Mild aortic valve regurgitation. Chest x-ray 06/17/2024: No acute cardiopulmonary process. ECG 06/17/2024: Sinus rhythm, incomplete right bundle branch block, T wave abnormality possible anterior ischemia, possible right atrial enlargement. ECG 02/03/2024: Normal sinus rhythm, rightward axis, T wave abnormality consider anterior ischemia. Echocardiogram 12/31/2023: CONCLUSION: 1. Hyperdynamic left ventricular systolic function. 2. Normal right ventricular size and systolic function. 3. Bilateral atrial enlargement. 4. No significant valvular dysfunction. 5. Mildly elevated right-sided pressures. 6. No pericardial effusion. ECG 12/30/2023: Sinus rhythm, incomplete right bundle branch block. T wave abnormality, possible anterolateral ischemia. Stress test 08/26/2023: Normal perfusion test, normal exercise test. EF 78%. ECG 08/07/2023: Normal sinus rhythm, normal ECG. Echocardiogram 12/13/2022: Global left ventricular systolic function is normal. Visually estimated ejection fraction is 60 to 65%, unable to assess diastolic function. The atria are enlarged and consistent with a prior history of heart transplantation. The right ventricle is normal in size and systolic function. Mild tricuspid regurgitation. Mildly elevated right-sided pressures. Mild mitral regurgitation. Mild aortic regurgitation. Anterior free space, trivial effusion versus fat pad. RVSP 39 mmHg. ECG 06/07/2023: Sinus rhythm with frequent ventricular premature complexes in a pattern of bigeminy, incomplete right bundle branch block, nonspecific T wave abnormality, moderate right axis deviation. Stress test at [facility] 09/02/2019: 1. SPECT Perfusion Study: Normal. 2. There is no scintigraphic evidence for inducible ischemia. 3. No evidence of scarred myocardium. 4. Functional capacity N/A (pharmacological). 5. Left ventricle is normal in size. The left ventricle systolic function is normal. 6. This is a low risk scan. Gated Stress FBP LVEF % 83 Assessment/Plan Diagnoses and all orders for this visit: Status post heart transplantation (CMS/HCC) - Transthoracic echo (TTE) complete; Future Pulmonary hypertension (CMS/HCC) - Transthoracic echo (TTE) complete; Future Primary hypertension - carvedilol (Coreg) 6.25 mg tablet; Take 1 tablet (6.25 mg) by mouth with breakfast and with evening meal. 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 Her pre and postop care was at the [facility]. Her echocardiograms as recent as 01/2025 showed normal ventricular function and no evidence of valvular dysfunction. Her stress test in August 2023 was normal. Ideally a cardiac catheterization would be better for assessment of possible CAV since the last cardiac catheterization was in 2016. However given her renal dysfunction and a fairly recent normal stress test I will not proceed with cardiac catheterization Her prior tacrolimus level was low. I had increased tacrolimus to 1 mg twice daily. I reviewed her most recent tacrolimus level and this seems to be in good range for her. Her target tacrolimus levelis around 5-10 ng/ml. Her leg edema has resolved after stopping amlodipine and adjusting her thyroid medication. Previously she was admitted with GI bleeding, diarrhea, influenza and C. difficile diarrhea. She isnow on Protonix. She completed vancomycin course for the C. difficile diarrhea and is back on mycophenolate. She continues to be on tacrolimus. Losartan was stopped. her blood pressure is elevated. I am going to increase carvedilol by 6.25 mg twice daily. I had a discussion with Dr. Shola Spivey the pulp making plant operator who saw her recently. The impression is that she might be headed towards needing dialysis in the near future. He is planning additional renal testing soon and will be seeing her in the next 2 to 3 weeks. We had a discussion about options for managing her kidney disease. I am going to check an echocardiogram to follow-up on her right-sided pressures as they were elevated by echocardiogram in January 2024. I discussed with Dr. Spivey and with the patient that we might consider proceeding with right heart catheterization for better assessment of left sided filling pressures. This would help better manage her renal dysfunction. She continues to have diarrhea and I am going to refer her to gastroenterology. We can consider reducing the dosage of mycophenolate. I will plan on seeing her in follow-up in 3 months. Follow up in about 3 months (around 09/21/2025). Jameel Daly MD documented in this encounter Plan of Treatment Upcoming Encounters Date Type Department Care Team ([facility] st Contact Info) Description 09/17/2025 11:00 AM EDT [facility] Visit [facility] [address] [place] [address] Jameel Daly MD [address] [facility] [address] [place] [address] Scheduled Orders Name Type Priority Associated Diagnoses Orde r Schedule Transthoracic echo (TTE) complete Echocardiography Routine Status post heart transplantation (CMS/HCC) Pulmonary hypertension (CMS/HCC) Expected: 06/21/2025 (Approximate), Expires: 06/21/2027 Scheduled Referrals Name Type Priority Associated Diagnoses Order Schedule Ambulatory referral to Gastroenterology Outpatient Referral Routine Chronic diarrhea Expected: 06/21/2025 (Approximate), Expires: 12/22/2025 documented as of this encounter Visit Diagnoses Diagnosis Status post heart transplantation (CMS/HCC)- Primary Heart replaced by transplant Pulmonary hypertension (CMS/HCC) Other chronic pulmonary heart diseases Primary hypertension Unspecified essential hypertension Stage 5 chronic kidney disease (CMS/HCC) Chronic diarrhea Diarrhea documented in this encounter Care Teams Pipeline Engineer Relationship Specialty Start Date End Date Vijay Davis MD [address] [facility] [address] [address] PCP - General 08/12/22 documented as of this encounter
--- OUTSIDE RECORDS SUMMARY | 2025-06-22 13:40 | XMS_ITS | Encounter Summary ---
Author Organization [facility] Address [address], [address] [place] [address] Care Team Providers Care Webbing Supervisor Name Role Phone Vijay Davis MD Primary Care Provider [phone] Reason for Referral * Imaging (Routine) - Not Required - RTA Specialty Diagnoses / Procedures Referred By Contac t Referred To Contact Radiology Diagnoses CKD (chronic kidney disease) stage 5, GFR less than 15 ml/min ([facility]) Hyperkalemia Metabolic acidosis Hypertensive renal disease, stage 1 through stage 4 or unspecified chronic kidney disease Procedures US RENAL COMPLETE Shola pSivey MD [address] [place] [address] [address] [place] [address] Phone: tel: fax: Referral ID Status Reason Start Date Expiration Date V isits Requested Visits Authorized [id number] Not Required - RTA 06/22/2025 06/22/2026 1 1 Reason for Visit * Auth/Cert Specialty Diagnoses / Procedures Referred By Contac t Referred To Contact Diagnoses Hypocalcemia Gaetano Mazariegos MD [address] [facility] [address] [place] [address] Phone: tel: fax: [facility] [address] [place] [address] Referral ID Status Reason Start Date Expiration Date Visits Re quested Visits Authorized [id number] 1 1 Encounter Details Date Type Department Care Team (Latest Contact Info) Description 06/22/2025 1:40 PM EDT - 06/24/2025 11:59 PM EDT Hospital Encounter [place] [phone] CKD (chronic kidney disease) stage 5, GFR less than 15 ml/min (HCC); Hyperkalemia; Metabolic acidosis; Hypertensive renal disease, stage 1 through stage 4 or unspecified chronic kidney disease Discharge Disposition: Home or Self Care Social History Tobacco Use Types Packs/Day Years Used Date Smoking Tobacco: Former Smokeless Tobacco: Former Quit: 12/20/1998 Alcohol Use Standard Drinks/Week Comments No 0 (1 standard drink = 0.6 oz pur e alcohol) [facility] Utilities Answer Date Recorded In the past 12 months has th e electric, gas, oil, or water company threatened to shut off services in your home? No 06/22/2025 AUDIT-C Answer Date Recorded Q1: How often do you have a drink containing alcohol? Never 06/22/2025 Q2: How many drinks containi ng alcohol do you have on a typical day when you are drinking? Patient does not drink Q3: How often do you have si x or more drinks on one occasion? Never 06/22/2025 Hunger Vital Sign Answer Date Recorded Within the past 12 months, y ou worried that your food would run out before you got the money to buy more. Never true 06/22/20 25 Within the past 12 months, t he food you bought just didn't last and you didn't have money to get more. Never true 06/22/2025 PRAPARE - Transportation Answer Date Re corded In the past 12 months, has l ack of transportation kept you from medical appointments or from getting medications? No 06/02 In the past 12 months, has l ack of transportation kept you from meetings, work, or from getting things needed for daily living? No 06/22/2025 Housing Stability Vital Sign Answer Dilshad e Recorded In the last 12 months, was t here a time when you were not able to pay the mortgage or rent on time? No 06/22/2025 In the past 12 months, how m any times have you moved where you were living? 1 06/22/2025 At any time in the past 12 m [facility], were you homeless or living in a retirement (including now)? No 06/22/2025 Food Insecurity Answer Date Recorded Within the past 12 months, y ou worried that your food would run out before you got the money to buy more. 1 06/22/2025 Within the past 12 months, t he food you bought just didn't last and you didn't have money to get more. 1 06/22/2025 Interpersonal Safety Domain Source: IP Abuse Scr eening Answer Date Recorded Physical abuse Denies 06/22/2025 Verbal abuse Denies 06/22/2025 Emotional abuse Denies 06/22/2025 Financial abuse Denies 06/22/2025 Sexual abuse Denies 06/22/2025 Comments No Sex and Gender Information Value Date Recorded Sex Assigned at Not on file Legal Sex Female 9:18 PM EST Gender Identity Not on file Sexual Orientation Not on file documented as of this encounter Functional Status documented as of this encounter Medications at Time of Discharge loperamide (IMODIUM) 2 MG capsule Take 1 capsule by mouth 4 times daily as needed for Diarrhea 40 capsule 06/26/2025 5 lactobacillus (CULTURELLE) capsule Take 1 capsule by mouth daily (with breakfast) 90 capsule 06/27/2025 Vitamin D, Ergocalciferol, 73996 units CAPS Take 50,000 Units by mouth once a week for 12 doses 12 capsule 06/30/2025 5 cholestyramine light 4 g packet Take 1 packet by mouth 2 times daily 60 packet 06/26/2025 CREON 11707-07598 units delayed release capsule TAKE 3 CAPSULES BY MOUTH 3 TIMES A DAY FOR 30 DAYS 05/28/2025 sodium bicarbonate 650 MG tablet Take 2 tablets by mouth 3 times daily 180 tablet 3 06/18/2025 oyster calcium (OYST-SONA) 500 MG TABS Take 1 tablet by mouth in the morning and at bedtime 60 tablet 3 06/18/2025 magnesium oxide (MAG-OX) 400 MG tablet Take 1 tablet by mouth in the morning, at noon, and at bedtime 05/30/2025 clonazePAM (KLONOPIN) 0.5 MG tabletIndications :Anxiety Take 1 tablet by mouth 2 times daily. 05/30/2025 levothyroxine (SYNTHROID) 100 MCG tablet Take 1 tablet by mouth every morning (before breakfast) aspirin 81 MG EC tablet Take 1 tablet by mouth daily carvedilol (COREG) 12.5 MG tablet Take 1 tablet by mouth 2 times daily (with meals) VITAMIN D PO Take 1 tablet by mouth daily Unsure of dose [place]-3 Fatty Acids (FISH OIL) 600 MG CAPS Take 1 tablet by mouth Daily Multiple Vitamin (MULTIVITAMIN ADULT PO) Take 1 tablet by mouth daily vitamin C (ASCORBIC ACID) 500 MG tablet Take 1 tablet by mouth daily mycophenolate (CELLCEPT) 250 MG capsule Take 2 capsules by mouth 2 times daily 60 capsule 12/28/2016 tacrolimus (PROGRAF) 0.5 MG capsuleIndication s:for a total of 1mg/daily Take 1 capsule by mouth 2 times daily Indications: for a total of 1mg/daily simvastatin (ZOCOR) 20 MG tablet Take 1 tablet by mouth nightly cycloSPORINE (RESTASIS) 0.05 % ophthalmic emulsion Place 1 drop into the left eye in the morning and at bedtime pramipexole (MIRAPEX) 0.25 MG tablet Take 1 tablet by mouth nightly alendronate (FOSAMAX) 70 MG tablet Take 1 tablet by mouth every other day 12/23/2016 cholestyramine light 4 g packet Take 1 packet by mouth 2 times daily 60 packet 06/26/2025 5 lactobacillus (CULTURELLE) capsule Take 1 capsule by mouth daily (with breakfast) 90 capsule 06/27/2025 5 loperamide (IMODIUM) 2 MG capsule Take 1 capsule by mouth 4 times daily as needed for Diarrhea 40 capsule 06/26/2025 5 Ergocalciferol (VITAMIN D) 51723 units CAPS Take 50,000 Units by mouth once a week for 12 doses 12 capsule 06/30/2025 5 aqwkfs-zevdwbev-w mylase (CREON) 78517-233037 units CPEP delayed release capsule Take 4 capsules by mouth 3 times daily (with meals) 5 documented as of this encounter Plan of Treatment Upcoming Encounters Date Type Department Care Team (Late st Contact Info) Description 07/20/2025 11:40 AM EDT Office Visit [facility] Kidney and Hypertension [address] [place] [id number] Shola Spivey MD [address] [place] [address] [place] [id number] Acute kidney injury superimposed on chronic kidney disease, 2 weeks f/u with labs/ US documented as of this encounter Procedures Procedure Name Priority Date/Time Associated Diagnosis Comments US RENAL COMPLETE Routine 06/22/2025 2:0 5 PM EDT CKD (chronic kidney disease) stage 5, GFR less than 15 ml/min (HCC) Hyperkalemia Metabolic acidosis Hypertensive renal disease, stage 1 through stage 4 or unspecified chronic kidney disease documented in this encounter Results * US RENAL COMPLETE (06/22/2025 2:05 PM EDT) Anatomical Region Laterality Modality Abdomen Ultrasound 06/23/2025 6:59 AM EDT Impressions 06/23/2025 7:00 AM EDT 1. Interval resolution of moderate right-sided hydronephrosis. 2. Stable left kidney simple cysts. Narrative 06/23/2025 7:00 AM EDT EXAM: RETROPERITONEAL ULTRASOUND OF THE KIDNEYS AND URINARY BLADDER TECHNIQUE: Real-time ultrasonography of the retroperitoneum including the kidneys and urinary bladder was performed. COMPARISON: Comparison study dated 05/28/2025. CLINICAL HISTORY: CKD (Chronic Kidney Disease) (CHRONIC KIDNEY DISEASE) stage 5, GFR (GLOMERULAR FILTRATION RATE) less than 15 ml/min, Hyperkalemia, Metabolic acidosis, Hypertensive renal disease. FINDINGS: RIGHT KIDNEY: The right kidney measures 8.9 cm in length. Interval resolution of moderate right-sided hydronephrosis. The right kidney demonstrates normal cortical echogenicity. LEFT KIDNEY: The left kidney measures 8.1 cm in length. stable left kidney simple cysts measuring 1.9 x 1.8 cm and 2.4 x 2.2 cm. The left kidney demonstrates normal cortical echogenicity. No hydronephrosis. BLADDER: Unremarkable appearance of the bladder. Procedure Note Lucius Salas MD - 06/23/2025 EXAM: RETROPERITONEAL ULTRASOUND OF THE KIDNEYS AND URINARY BLADDER TECHNIQUE: Real-time ultrasonography of the retroperitoneum including the kidneys andurinary bladder was performed. COMPARISON: Comparison study dated 05/28/2025. CLINICAL HISTORY: CKD (Chronic Kidney Disease) (CHRONIC KIDNEY DISEASE) stage 5, GFR(GLOMERULAR FILTRATION RATE) less than 15 ml/min, Hyperkalemia, Metabolicacidosis, Hypertensive renal disease. FINDINGS: RIGHT KIDNEY: The right kidney measures 8.9 cm in length. Interval resolution ofmoderate right-sided hydronephrosis. The right kidney demonstrates normalcortical echogenicity. LEFT KIDNEY: The left kidney measures 8.1 cm in length. stable left kidney simple cystsmeasuring 1.9 x 1.8 cm and 2.4 x 2.2 cm. The left kidney demonstratesnormal cortical echogenicity. No hydronephrosis. BLADDER: Unremarkable appearance of the bladder. IMPRESSION: 1. Interval resolution of moderate right-sided hydronephrosis. 2. Stable left kidney simple cysts. Shola Spivey MD [facility] US ORDERABLES Final Result documented in this encounter Visit Diagnoses Diagnosis CKD (chronic kidney disease) stage 5, GFR less than 15 ml/min (HCC) Chronic kidney disease, Stage V Hyperkalemia Hyperpotassemia Metabolic acidosis Acidosis Hypertensive renal disease, stage 1 through stage 4 or unspecified chronic kidney disease documented in this encounter Additional Health Concerns Infection Onset Date Last Indicated Resolved Time C-diff Rule Out 06/22/2025 06/23/2025 06/23/2025 1 2:01 PM EDT documented as of this encounter Care Teams Webbing Supervisor Relationship Specialty Start Date End Date Vijay Davis MD [address] [place] [id number] PCP - General Family Medicine 05/28/25 documented as of this encounter
--- OUTSIDE RECORDS SUMMARY | 2025-06-22 13:47 | XMS_ITS | Encounter Summary ---
Author Organization [facility] Address [address], [address] [place] [address] Care Team Providers Care Hair Boiler Name Role Phone Vijay Davis MD Primary Care Provider [phone] Reason for Visit * Auth/Cert Specialty Diagnoses / Procedures Referred By Contac t Referred To Contact Diagnoses Hypocalcemia Gaetano Mazariegos MD [address] [place] [address] Phone: tel: fax: [facility] [address] [place] [address] Referral ID Status Reason Start Date Expiration Date Visits Re quested Visits Authorized [id number] 1 1 Encounter Details Date Type Department Care Team (Latest Contact Info) Description 06/22/2025 1:47 PM EDT - 06/22/2025 3:43 PM EDT Hospital Encounter [facility] [address] [phone] CKD (chronic kidney disease) stage 5, GFR less than 15 ml/min ([facility]); Hyperkalemia; Metabolic acidosis; Hypertensive renal disease, stage 1 through stage 4 or unspecified chronic kidney disease Discharge Disposition: Home or Self Care Social History Tobacco Use Types Packs/Day Years Used Date Smoking Tobacco: Former Smokeless Tobacco: Former Quit: 12/20/1998 Alcohol Use Standard Drinks/Week Comments No 0 (1 standard drink = 0.6 oz pur e alcohol) [facility] Utilities Answer Date Recorded In the past 12 months has [employer], gas, oil, or water company threatened to [...] any time in the past 12 m [facility], were you homeless or living in a care home (including now)? No 06/22/2025 Food Insecurity Answer [...] on file documented as of this encounter Medications at Time of Discharge loperamide (IMODIUM) 2 MG capsule Take 1 capsule by mouth 4 times daily as needed for Diarrhea 40 capsule 06/26/2025 5 lactobacillus (CULTURELLE) capsule Take 1 capsule by mouth daily (with breakfast) 90 capsule 06/27/2025 Vitamin D, Ergocalciferol, 58130 units CAPS Take 50,000 Units by mouth once a week for 12 doses 12 capsule 06/30/2025 5 cholestyramine light 4 g packet Take 1 packet by mouth 2 times daily 60 packet 06/26/2025 CREON 11408-46983 units delayed release capsule TAKE 3 CAPSULES [...] tablet by mouth daily Unsure of dose [place]-3 Fatty Acids (FISH OIL) 600 MG CAPS [...] 40 capsule 06/26/2025 5 Ergocalciferol (VITAMIN D) 33944 units CAPS Take 50,000 Units by mouth once a week for 12 doses 12 capsule 06/30/2025 5 qjkiac-anttnrdk-u mylase (CREON) 72637-635765 units CPEP delayed release capsule Take 4 capsules by mouth 3 times daily (with meals) 5 documented as of this encounter Plan of Treatment Upcoming Encounters Date Type Department Care Team (Late st Contact Info) Description 07/20/2025 11:40 AM EDT Office Visit [facility] [address] [place] [id number] Shola Spivey MD [address] [place] [address] Acute kidney injury superimposed on chronic kidney disease, 2 weeks f/u with labs/ US documented as of this encounter Procedures Procedure Name Priority Date/Time Associated Diagnosis Comments MICROSCOPIC URINALYSIS Routine 06/22/2025 2:03 PM EDT IRON AND TIBC Routine 06/22/2025 2:03 PM EDT HEMOGLOBIN AND HEMATOCRIT Routine 06/22/2025 2:03 PM EDT CKD (chronic kidney disease) stage 5, GFR less than 15 ml/min (HCC) Hyperkalemia Metabolic acidosis Hypertensive renal disease, stage 1 through stage 4 or unspecified chronic kidney disease PROTEIN / CREATININE RATIO, URINE Routine 06/22/2025 2:03 PM EDT CKD (chronic kidney disease) stage 5, GFR less than 15 ml/min (HCC) Hyperkalemia Metabolic acidosis Hypertensive renal disease, stage 1 through stage 4 or unspecified chronic kidney disease VITAMIN D 25 HYDROXY Routine 06/22/2025 2:03 PM EDT CKD (chronic kidney disease) stage 5, GFR less than 15 ml/min (HCC) Hyperkalemia Metabolic acidosis Hypertensive renal disease, stage 1 through stage 4 or unspecified chronic kidney disease URINALYSIS Routine 06/22/2025 2:03 PM EDT CKD (chronic kidney disease) stage 5, GFR less than 15 ml/min (HCC) Hyperkalemia Metabolic acidosis Hypertensive renal disease, stage 1 through stage 4 or unspecified chronic kidney disease PHOSPHORUS Routine 06/22/2025 2:03 PM EDT CKD (chronic kidney disease) stage 5, GFR less than 15 ml/min (HCC) Hyperkalemia Metabolic acidosis Hypertensive renal disease, stage 1 through stage 4 or unspecified chronic kidney disease PTH, INTACT Routine 06/22/2025 2:03 PM EDT CKD (chronic kidney disease) stage 5, GFR less than 15 ml/min (HCC) Hyperkalemia Metabolic acidosis Hypertensive renal disease, stage 1 through stage 4 or unspecified chronic kidney disease FERRITIN Routine 06/22/2025 2:03 PM EDT CKD (chronic kidney disease) stage 5, GFR less than 15 ml/min (HCC) Hyperkalemia Metabolic acidosis Hypertensive renal disease, stage 1 through stage 4 or unspecified chronic kidney disease BASIC METABOLIC PANEL Routine 06/22/2025 2:03 PM EDT CKD (chronic kidney disease) stage 5, GFR less than 15 ml/min (HCC) Hyperkalemia Metabolic acidosis Hypertensive renal disease, stage 1 through stage 4 or unspecified chronic kidney disease documented in this encounter Results * (ABNORMAL) Microscopic Urinalysis (06/22/2025 2:03 PM EDT) WBC, UA 2 TO 5 0 - 5 /HPF 06/22/2025 2:03 PM EDT [facility] RBC, UA None 0 - 2 /HPF 06/22/2025 2:03 PM EDT [facility] Epithelial Cells, UA None 0 - 25 /HPF 06/22/2025 2:03 PM EDT [facility] Bacteria, UA TRACE(A) None 06/22/2025 2:03 PM EDT [facility] 06/22/2025 2:03 PM EDT 06/22/2025 2:04 PM EDT us Shola Spivey MD URINE ORDERABLES Final Result Performing Organization Address [facility] Co de Phone Number [facility] [address] [place] [address], [facility] [phone] * (ABNORMAL) Iron and TIBC (06/22/2025 2:03 PM EDT) Iron 79 37 - 145 ug/dL 06/22/2025 2:03 PM EDT [facility] TIBC 226(L) 250 - 450 ug/dL 06/22/2025 2:03 PM EDT [facility] [employer] Iron % Saturation 35 20 - 55 % 06/22/2025 2:03 PM EDT [facility] UIBC 147 112 - 347 ug/dL 06/22/2025 2:03 PM EDT [facility] 06/22/2025 2:03 PM EDT 06/22/2025 2:04 PM EDT us Shola Spivey MD CHEMISTRY ORDERABLES Final Resu lt Performing Organization Address [facility]/ZIP Co de Phone Number [facility] [address] [place] [address], [facility] [phone] [facility] [address] [place] [address], [facility] [phone] * (ABNORMAL) Urinalysis (06/22/2025 2:03 PM EDT) Color, UA Yellow Yellow 06/22/2025 2:03 PM EDT [facility] Turbidity UA Clear Clear 06/22/2025 2:03 PM EDT [facility] Glucose, Ur TRACE(A) NEGATIVE mg/dL 06/22/2025 2:03 PM EDT [facility] Bilirubin, Urine NEGATIVE NEGATIVE 06/22/2025 2:03 PM EDT [facility] Ketones, Urine NEGATIVE NEGATIVE mg/dL 06/22/2025 2:03 PM [facility] Specific [place], UA 1.020 1.010 - 1.020 06/22/2025 2:03 PM [facility] Urine Hgb 1+(A) NEGATIVE 06/22/2025 2:[address] [facility] pH, Urine 6.0 5.0 - 9.0 06/22/2025 2:03 PM EDT [facility] Protein, UA 2+(A) NEGATIVE mg/dL 06/22/2025 2:03 PM [facility] Urobilinogen, Urine Normal 0.0 - 1.0 EU/dL 06/22/2025 2:03 PM [facility] Nitrite, Urine NEGATIVE NEGATIVE 06/22/2025 2:03 PM EDT [facility] Leukocyte Esterase, Urine SMALL(A) NEGATIVE 06/22/2025 2:03 PM [facility] Urine URINE SPECIMEN / Unknown 06/22/2025 2:03 PM EDT 06/22/2025 2:04 PM EDT Shola Spivey MD URINE ORDERABLES Final Result [facility] [address] [phone] * (ABNORMAL) Phosphorus (06/22/2025 2:03 PM EDT) Phosphorus 4.6(H) 2.5 - 4.5 mg/dL 06/22/2025 2:03 PM EDT [facility] Blood BLOOD SPECIMEN / Unknown 06/22/2025 2:03 PM EDT 06/22/2025 2:04 PM EDT us Shola Spivey MD CHEMISTRY ORDERABLES Final Resu lt Performing Organization Address City/[facility]/ZIP Co de Phone Number [facility] [address] [place] [address] * (ABNORMAL) PTH, Intact (06/22/2025 2:03 PM EDT) Pth Intact 331.0(H) 17.9 - 58.6 pg/mL 06/22/2025 2:03 PM EDT [facility] [employer] Blood BLOOD SPECIMEN / Unknown 06/22/2025 2:03 PM EDT 06/22/2025 2:04 PM EDT us Shola Spivey MD CHEMISTRY ORDERABLES Final Resu lt Performing Organization Address City/[facility]/ZIP Co de Phone Number [facility] [address] [place] [address], [facility] [phone] [place] [address], [facility] [phone] * (ABNORMAL) Hemoglobin and Hematocrit (06/22/2025 2:03 PM EDT) Hemoglobin 7.2(L) 11.9 - 15.1 g/dL 06/22/2025 2:03 PM EDT [facility] Hematocrit 22.4(L) 36.3 - 47.1 % 06/22/2025 2:03 PM EDT [facility] Blood BLOOD SPECIMEN / Unknown 06/22/2025 2:03 PM EDT 06/22/2025 2:04 PM EDT us Shola Spivey MD HEMATOLOGY ORDERABLES Final Res ult [facility] [address] [place] [address], [facility] [phone] * (ABNORMAL) Basic Metabolic Panel (06/22/2025 2:03 PM EDT) Sodium 133(L) 136 - 145 mmol/L 06/22/2025 2:03 PM EDT [facility] Potassium 5.0 3.7 - 5.3 mmol/L 06/22/2025 2:03 PM EDT [facility] Chloride 103 98 - 107 mmol/L 06/22/2025 2:[address] [facility] CO2 12(L) 20 - 31 mmol/L 06/22/2025 2:03 PM [facility] Anion Gap 18(H) 9 - 16 mmol/L 06/22/2025 2:03 PM EDT [facility] Glucose 177(H) 74 - 99 mg/dL 06/22/2025 2:03 PM T [facility] BUN 69(H) 8 - 23 mg/dL 06/22/2025 2:03 PM [facility] Creatinine 4.6(H) 0.50 - 0.90 mg/dL 06/22/2025 2:03 PM [facility] Est, Glom Filt Rate 9(L) >60 mL/min/1.7 3m2 06/22/2025 2:03 PM EDT [facility] Comment: These results are not intended for use in patients <18 years of age. eGFR results are calculated without a race factor using the 2020 CKD-EPI equation. Careful clinical correlation is recommended, particularly when comparing to results calculated using previous equations. The CKD-EPI equation is less accurate in patients with extremes of muscle mass, extra-renal metabolism of creatine, excessive creatine ingestion, or following therapy that affects renal tubular secretion. BUN/Creatinine Ratio 15 9 - 20 06/22/2025 2:03 PM EDT [facility] Calcium 5.6(LL) 8.6 - 10.4 mg/dL 06/22/2025 2:03 PM EDT [facility] Blood BLOOD SPECIMEN / Unknown 06/22/2025 2:03 PM EDT 06/22/2025 2:04 PM EDT us Shola Spivey MD CHEMISTRY ORDERABLES Final Resu lt Performing Organization Address [facility]/ZIP Co de Phone Number [facility] [address] [place] [address], [facility] [phone] * Ferritin (06/22/2025 2:03 PM EDT) Ferritin 413 ng/mL 06/22/2025 2:03 PM EDT [facility] Comment:No reference range e stablished for this age/gender. Blood BLOOD SPECIMEN / Unknown 06/22/2025 2:03 PM EDT 06/22/2025 2:04 PM EDT us Shola Spivey MD CHEMISTRY ORDERABLES Final Resu lt Performing Organization Address [facility]/ZIP Co de Phone Number [facility] [address] [place] [address], [facility] [phone] [place] [address], [facility] [phone] * (ABNORMAL) Protein / creatinine ratio, urine (06/22/2025 2:03 PM EDT) Total Protein, Urine 120 mg/dL 06/22/2025 2:03 PM EDT [facility] Comment:No normal range esta blished. Creatinine, Ur 77.3 28.0 - 217.0 mg/dL 06/22/2025 2:03 PM EDT [facility] Urine Total Protein Creatinine Ratio 1.55(H) 0.00 - 0.20 06/22/2025 2:03 PM EDT [facility] Urine (Urine) 06/22/2025 2:0 3 PM EDT 06/22/2025 2:04 PM EDT us Shola Spivey MD URINE ORDERABLES Final Result [facility] [address] [place] [address] * (ABNORMAL) Vitamin D 25 Hydroxy (06/22/2025 2:03 PM EDT) Vit D, 25-Hydroxy 26.2(L) 30.0 - 100.0 ng/mL 06/22/2025 2:03 PM EDT [email or web address] [facility] [employer] Comment: Reference Range: Vitamin D status Range Deficiency <20 ng/mL Mild Deficiency 20-30 ng/mL Sufficiency 30-100 ng/mL Toxicity >100 ng/mL Blood BLOOD SPECIMEN / Unknown 06/22/2025 2:03 PM EDT 06/22/2025 2:04 PM EDT us Shola Spivey MD CHEMISTRY ORDERABLES Final Resu lt Performing Organization Address City/[facility]/ZIP Co de Phone Number [facility] [address] [place] [address] [phone] documented in this encounter Visit Diagnoses Diagnosis CKD (chronic kidney disease) stage 5, GFR less than 15 ml/min (HCC) Chronic kidney disease, Stage V Hyperkalemia Hyperpotassemia Metabolic acidosis Acidosis Hypertensive renal disease, stage 1 through stage 4 or unspecified chronic kidney disease documented in this encounter Care Teams Hair Boiler Relationship Specialty Start Date End Date Vijay Davis MD [address] [place] [address] PCP - General Family Medicine 05/28/25 documented as of this encounter
--- OUTSIDE RECORDS SUMMARY | 2025-06-22 15:44 | XMS_ITS | Encounter Summary ---
Author Organization [facility] [employer] [facility] Address [address], [address] [place] [address] Care Team Providers Care Agriculture Instructor Name Role Phone Vijay Davis MD Primary Care Provider [phone] Reason for Referral * Eval and Treat (Routine) - Open Specialty Diagnoses / Procedures Referred By Ronald yoo Referred To Contact Dermatology Diagnoses Skin lesion of right leg Saadia Carrillo APRN - CNP [address] [facility] [place] [address] Phone: tel: fax: Referral ID Status Reason Start Date Expiration Date V isits Requested Visits Authorized [id number] Open Specialty Services Required 06/25/2025 12/22/2025 1 1 Scheduling Instructions Right thigh lesion - concern for cancer Question Answer Reason For External Referral? Patient Preference Comments The patient can be scheduled with any member of the group, including the provider with the first available appointments. Reason for Visit * Reason Comments Abnormal Lab Patient had outpatie nt labs today for follow up for nephrology. Received a phone call to come to ER d/t Calcium 5.6. pt reports feeling weak and shaky, diarrhea. * Auth/Cert Specialty Diagnoses / Procedures Referred By Ronald yoo Referred To Contact Diagnoses Hypocalcemia Gaetano Mazariegos MD [address] [place] [address] Phone: tel: fax: [employer] [facility] [address] [place] [address] Referral ID Status Reason Start Date Expiration Date Visits Re quested Visits Authorized [id number] 1 1 Encounter Details Date Type Department Care Team (Late st Contact Info) Description 06/22/2025 3:44 PM EDT - 06/26/2025 2:40 PM EDT Hospital Encounter [facility] [address] [place] [address] Komal Clement MD [address] [place] [address] Gaetano Mazariegos MD [address] [place] [address] Hypocalcemia (Primary Dx); Hypomagnesemia; Acute kidney injury superimposed on CKD; Skin lesion of right leg; Acute renal failure, unspecified acute renal failure type; Anemia, unspecified type Discharge Disposition: Home or Self Care Social History Tobacco Use Types Packs/Day Years Used Date Smoking Tobacco: Former Smokeless Tobacco: Former Quit: 12/20/1998 Alcohol Use Standard Drinks/Week Comments No 0 (1 standard drink = 0.6 oz pur e alcohol) [facility] Utilities Answer Date Recorded In the past 12 months has [employer], gas, oil, or water [employer] threatened to shut off services in your [...] any time in the past 12 m onths, were you homeless or living in a senior living (including now)? No 06/22/2025 Food Insecurity Answer [...] on file documented as of this encounter Last Filed Vital Signs Vital Sign Reading Time Taken Comments Blood Pressure 140/74 06/26/2025 7:40 AM EDT Pulse 71 06/26/2025 7:40 AM EDT Temperature 36.7 C (98 F) 06/26/2025 7:40 AM EDT Respiratory Rate 18 06/26/2025 7:40 AM EDT Oxygen Saturation 100% 06/26/2025 7:40 AM EDT Inhaled Oxygen Concentration - - Weight 45.6 kg (100 lb 8 oz) 06/26/2025 4:48 AM EDT Height 157.5 cm (5' 2 ) 06/23/2025 8:26 AM EDT Body Mass Index 18.38 06/23/2025 8:26 AM EDT documented in this encounter Functional Status documented as of this encounter Discharge Summaries * Gaetano Mazariegos MD - 06/26/2025 1:19 PM EDT Images from the original note were not included. [address] , [place], [place], [address] Discharge Summary NAME: Sylvia Herrera : 1945 Admit date: 06/22/2025 Discharge date: 06/26/25 Admitting Physician: Gaetano Mazariegos MD Primary Diagnosis on Admission: Present on Admission: Hypocalcemia (Resolved) Severe malnutrition Pancreatic insufficiency Hypomagnesemia History of heart transplant (HCC) Duodenitis Generalized anxiety disorder Heart transplanted (HCC) Diverticulosis of large intestine without hemorrhage Moderate malnutrition CKD (chronic kidney disease), stage IV (HCC) Hyperphosphatemia Metabolic acidosis Acute kidney injury superimposed on CKD Secondary Diagnoses: does not have any pertinent problems on file. Admission Condition: serious Discharged Condition: stable Hospital Course: The patient was admitted for the management of DREW wiith hyponatremia and hypocalcemia. Nephrology was consulted at the time. Her labs were suspected to be abnormal 2/2 intermittent episodes of diarrhea given a hx of recurrent/chronic pancreatitis . She was provided with IVF at thetime and labs were monitored closely. She also had anemia which required 1u PRBC with no bleeding noted. General surgery was consulted for this and her right upper thigh wound. It was discussed, including RBA that the thigh wound is highly suspicious for possible cancer of which she will have Dermatology follow-up. She was provided with imodium, probiotics and cholestyramine. Today on day of discharge pt feels better with no further complaints. Vitals and Labs are stable.. All consultants involved during this admission are agreeable to d/c. She will have repeat labs in 1 week's time - CBC/CMPand have close follow-up on an OP basis. If there are any worsening or concerning signs or symptoms, patient will report to the ED and/or contact [id number] for immediate evaluation. Teach back method was used. All patient questions answered. Pt voiced understanding. Consults: Nephrology. Significant Diagnostic/theraputic interventions: IVF, CT imaging.(Femur), pRBC Disposition: home Instructions to Patient: Follow up with Vijay Davis MD in 1-2 weeks; Follow up with Nephrology in 1-2 weeks Follow up with Dermatology / information had been provided Discharge Medications: Medication List START taking these medications cholestyramine light 4 g packet Take 1 packet by mouth 2 times daily lactobacillus capsule Take 1 capsule by mouth daily (with breakfast) Start taking on: June 27, 2025 loperamide 2 MG capsule Commonly known as: IMODIUM Take 1 capsule by mouth 4 times daily as needed for Diarrhea Vitamin D (Ergocalciferol) 86025 units Caps Take 50,000 Units by mouth once a week for 12 doses Start taking on: June 30, 2025 CHANGE how you take these medications Creon 86272-21499 units delayed release capsule Generic drug: cljajc-ryaxpudf-wllydqo What changed: Another medication with the same name was removed. Continue taking this medication, and follow the directions you see here. CONTINUE taking these medications aspirin 81 MG EC tablet carvedilol 12.5 MG tablet Commonly known as: COREG clonazePAM 0.5 MG tablet Commonly known as: KLONOPIN cycloSPORINE 0.05 % ophthalmic emulsion Commonly known as: RESTASIS Fish Oil 600 MG Caps Fosamax 70 MG tablet Generic drug: alendronate levothyroxine 100 MCG tablet Commonly known as: SYNTHROID magnesium oxide 400 MG tablet Commonly known as: MAG-OX MULTIVITAMIN ADULT PO mycophenolate 250 MG capsule Commonly known as: CELLCEPT Take 2 capsules by mouth 2 times daily oyster calcium 500 MG Tabs Commonly known as: OYST-SONA Take 1 tablet by mouth in the morning and at bedtime pramipexole 0.25 MG tablet Commonly known as: MIRAPEX simvastatin 20 MG tablet Commonly known as: ZOCOR sodium bicarbonate 650 MG tablet Take 2 tablets by mouth 3 times daily tacrolimus 0.5 MG capsule Commonly known as: proGRAF vitamin C 500 MG tablet Commonly known as: ASCORBIC ACID VITAMIN D PO Where to Get Your Medications These medications were sent to [facility] [facility] [phone] - [phone] [address] [facility] [address] cholestyramine light 4 g packet lactobacillus capsule loperamide 2 MG capsule Vitamin D (Ergocalciferol) 19862 units Caps Send Copies to: Vijay Davis MD Patient Instructions: Activity: activity as tolerated Diet: cardiac diet, encourage fluids; monitor diet closely for possible triggers of the diarrhea. Wound Care: keep wound clean and dry / plan for Dermatology consultation Follow up with Vijay Davis MD in 1-2 weeks Follow-up with Nephrology and Dermatology in 1-2 weeks as directed CORE MEASURES on Discharge (if applicable) CHF: IRENE, ARB or ARNI therapy: If not present/on discharge summary as noted above, then the patientdeclined. CHF: Betablocker therapy: If not present/on discharge summary as noted above, then the patient declined. IRENE/ARB in CHF: N/A ASA in [place]: N/A Statin in [place]: N/A Statin in CVA: N/A Antiplatelet in CVA: N/A Total time spent on discharge services: 45 minutes Including the following activities: Evaluation and Management of patient Discussion with patient and/or surrogate about current care plan Coordination with Case Management and/or Track Machine Operator Repairer Coordination of care with Consultants (if applicable) Coordination of care with Receiving Facility Physician (if applicable) Completion of DME forms (if applicable) Preparation of Discharge Summary Preparation of Medication Reconciliation Preparation of Discharge Prescriptions Please note that this chart was generated using voice recognition wireWAX dictation software. Although every effort was made to ensure the accuracy of this automated district attorney, some errors in district attorney may have occurred. Gaetano Mazarigeos MD 06/26/2025 1:19 PM documented in this encounter Discharge Instructions * Attachments The following attachments cannot be sent through Care Everywhere. * Blood Transfusions: General Info (Bruneian) * Hypocalcemia (Bruneian) documented in this encounter Medications at Time of Discharge loperamide (IMODIUM) 2 MG capsule Take 1 capsule by mouth 4 times daily as needed for Diarrhea 40 capsule 06/26/2025 5 lactobacillus (CULTURELLE) capsule Take 1 capsule by mouth daily (with breakfast) 90 capsule 06/27/2025 Vitamin D, Ergocalciferol, 82096 units CAPS Take 50,000 Units by mouth once a week for 12 doses 12 capsule 06/30/2025 5 cholestyramine light 4 g packet Take 1 packet by mouth 2 times daily 60 packet 06/26/2025 CREON 96701-09421 units delayed release capsule TAKE 3 CAPSULES [...] tablet by mouth daily Unsure of dose [place]-3 Fatty Acids (FISH OIL) 600 MG CAPS [...] tablet by mouth every other day 12/23/2016 documented as of this encounter Progress Notes * Sahra Burger RN - 06/26/2025 2:40 PM EDT Patient discharged at this time. Patient assisted to personal car via wheelchair. Patient transporting self home. * Sahra Burger RN - 06/26/2025 2:30 PM EDT Discharge education completed at this time. Follow-up appointments reviewed. Outpatient follow-up lab work reviewed. New and current medications reviewed at this time, with next due time noted. Home education on hypocalcemia reviewed at this time. Signs and symptoms of a stroke and heart attack reviewed. No further questions or concerns at this time. Discharge education reviewed with patient. Patient's home medications removed from locked drawer and returned to patient to take home. * Jorge Tillman MD - 06/26/2025 11:03 AM EDT [facility] [phone] Nephrology progress note 06/26/2025, 11:03 AM Pt Name: Sylvia Herrera Birthdate: 1945 Admit Date: 06/22/2025 3:44 PM Primary Care Physician: Vijay Davis MD Room number 0328/0328-01 Patient was evaluated through a synchronous (real-time) audio-video encounter. The patient (or guardian if applicable) is aware that this is a billable service, which includes applicable co-pays. This virtual visit was conducted with patient's (and/or legal guardian's consent). Patient identification was verified, and a caregiver was present when appropriate. The patient was located at home in a state where the provider was licensed to provide care Virtual visit was done to address concerns as mentioned above. Due to this being a TeleHealth encounter, evaluation of the following organ systems was limited: EENT/Resp/CV/GI//MS/Neuro/Skin/Lymph Services were provided through a video synchronous discussion virtually to substitute for in-personvisit. Telehealth service was provided with the patient at [facility] and myself the physician in [facility] and RN who has initiated the visit. TELEHEALTH EVALUATION -- Audio/Visual Patient's Location: Hospital Room # 328 Physician's (myself) Location: [facility] Patient's nurse: Present Chief Complaint: Nephrology following for DREW/CKD Subjective: Patient seen and examined No chest pain or shortness of breath Eating and drinking well denies any complaints Eager to go home Objective: 24HR INTAKE/OUTPUT: Intake/Output Summary (Last 24 hours) at 06/26/2025 1103 Last data filed at 06/25/2025 2320 Gross per 24 hour Intake 1399.08 ml Output -- Net 1399.08 ml I/O last 3 completed shifts: In: 3098 [P.O.:480; I.V.:2560.7; IV Piggyback:57.4] Out: - No intake/output data recorded. Admission weight: 46.7 kg (102 lb 14.4 oz) Wt Readings from Last 3 Encounters: 06/26/25 45.6 kg (100 lb 8 oz) 06/18/25 46.3 kg (102 lb) 05/30/25 48.9 kg (107 lb 11.2 oz) Body mass index is 18.38 kg/m??. Physical examination VITALS: Vitals: 06/25/25 1500 06/25/25 1900 06/26/25 0448 06/26/25 0740 BP: (!) 163/85 (!) 165/81 (!) 140/74 Pulse: 70 74 71 Resp: 16 16 18 Temp: 97 ??F (36.1 ??C) 97.2 ??F (36.2 ??C) 98 ??F (36.7 ??C) TempSrc: Temporal Temporal Temporal SpO2: 100% 100% 100% Weight: 45.6 kg (100 lb 8 oz) Height: Constitutional and General Appearance: alert and cooperative, appears comfortable, no apparent distress, not diaphoretic, Appears well-developed and well-nourished. RA Lungs: no use of accessory muscles or labored breathing noted, Respiratory effort observed to be normal Extremities: No visible swelling Neuro: no slurred speech, no facial drooping Psychiatric: Normal mood and affect, Not agitated Mental status: Alert and awake, Oriented to person/place/time, Able to follow commands Due to this being a TeleHealth encounter, evaluation of the following organ systems is limited: EENT/Resp/CV/GI//MS/Neuro/Skin/Lymph Lab Data CBC: Recent Labs 06/24/25 0606/25/25 0630 06/26/25 0555 WBC 6.8 5.9 6.9 HGB 8.5* 8.0* 8.0* HCT 26.3* 24.4* 24.0* PLT 130* 119* 119* BMP: Recent Labs 06/23/25 1640 06/24/25 0600 06/25/25 0630 06/26/25 0555 NA -- 137 137 138 K -- 4.6 4.4 4.5 CL -- 102 102 104 CO2 -- 16* 19* 19* BUN -- 81* 79* 77* CREATININE -- 4.0* 3.7* 3.8* GLUCOSE -- 106* 87 91 CALCIUM -- 6.4* 7.1* 7.6* MG 1.6 1.5* -- 1.7 PHOS -- -- -- 3.2 Hepatic: Recent Labs 06/26/25 0555 AST 31 ALT 27 BILITOT 0.3 ALKPHOS 328* Meds: Infusion: sodium chloride 75 mL/hr at 06/25/25 2320 sodium chloride sodium chloride Meds: cholestyramine light 4 g Oral BID lactobacillus 1 capsule Oral Daily with breakfast calcium carbonate 1,000 mg Oral BID tacrolimus 1 mg Oral Daily epoetin david-epbx 6,000 Units SubCUTAneous Once per day on Saturday vitamin D 50,000 Units Oral Weekly calcium acetate 1 capsule Oral TID WC pantoprazole (PROTONIX) 40 mg in sodium chloride (PF) 0.9 % 10 mL injection 40 mg IntraVENous Daily [Held by provider] alendronate 70 mg Oral Q7 Days [Held by provider] aspirin 81 mg Oral Daily carvedilol 12.5 mg Oral BID WC levothyroxine 112 mcg Oral QAM AC magnesium oxide 400 mg Oral TID yskdsj-wpamjsui-flknikc 5,000 Units Oral TID WC yahfse-sywqvsxf-rooeqih 20,000 Units Oral TID WC multivitamin 1 tablet Oral Daily mycophenolate 500 mg Oral BID pramipexole 0.5 mg Oral Nightly atorvastatin 10 mg Oral Daily sodium bicarbonate 1,300 mg Oral TID vitamin C 500 mg Oral Daily sodium chloride flush 10 mL IntraVENous 2 times per day Meds prn: sodium chloride, loperamide, clonazePAM, sodium chloride flush, sodium chloride, ondansetron OR ondansetron, polyethylene glycol, acetaminophen OR acetaminophen Impression and Plan: Severe DREW on CKD 4 Patient's serum creatinine was around 2.9-3.0 in May. Went up to 3.5 early June and then upto 4.6 on admission. Currently appears to be stable possibly developing a new baseline 2. Severe metabolic acidosis secondary to DREW/CKD as well as diarrhea. Improving. On oral sodium bicarbonate 3. Electrolytes within normal limits 5. Severe hypocalcemia. Doing better 6. Vitamin D deficiency. Continue ergocalciferol. 7. Secondary hyperparathyroidism. on PhosLo (calcium based phosphate binders) 8. Anemia. S/p blood transfusion. Added Retacrit 9. Heart transplant 01/2006 10. Hypomagnesemia. Doing well D/W pt and RN Ok from renal stand point for DC . BMP in [address] Spivey in 2 - 3 weeks Jorge Tillman MD [facility] * Gaetano Mazariegos MD - 06/26/2025 8:09 AM EDT Images from the original note were not included. [address], [address] Progress Note Date: 06/26/2025 Patient name: Sylvia Herrera Date of admission: 06/22/2025 3:44 PM Date of : 1945 SUBJECTIVE/Last 24 hours update: Patient seen and examined at the bed side , no new acute events overnight except for some ongoing diarrhea and no new complains noted. She is feeling better than prior. VSS, afebrile. She denies any bloodin the stools. She has been taking imodium. Notes from nursing staff and Consults had been reviewed, and the overnight progress had been checked with the nursing staff as well. REVIEW OF SYSTEMS: CONSTITUTIONAL: no fevers, no headcahes EYES: negative for blury vision HEENT: No headaches, No nasal congestion, no difficulty swallowing RESPIRATORY:negative for dyspnea, no wheezing, no Cough CARDIOVASCULAR: negative for chest pain, no palpitations GASTROINTESTINAL: no nausea, no vomiting, no change in bowel habits, no abdominal pain , diarrhea noted GENITOURINARY: negative for dysuria, no hematuria MUSCULOSKELETAL: no joint pains, no muscle aches, no swelling of joints or extremities NEUROLOGICAL: No Weakness or numbness PAST MEDICAL HISTORY: has a past medical history of Acute renal failure (ARF), CAD (coronary artery disease), CHF (congestive heart failure) ([facility]), Diverticulosis of large intestine without hemorrhage, GERD (gastroesophageal reflux disease), History of blood transfusion, Pancreatitis, Pneumonia, Psychiatric problem, andThyroid disease. PAST SURGICAL HISTORY: has a past surgical history that includes Cardiac surgery; Cholecystectomy; Colonoscopy; Dilatation, esophagus; vascular surgery; XR MIDLINE EQUAL OR GREATER THAN 5 YEARS (01/21/2025); and Heart transplant (2005). SOCIAL HISTORY: reports that she has quit smoking. She quit smokeless tobacco use about 26 years ago. She reports that she does not drink alcohol and does not use drugs. TOBACCO: reports that she has quit smoking. She quit smokeless tobacco use about 26 years ago. ETOH: reports no history of alcohol use. Reviewed and non-contributory or as noted above and/or in the HPI FAMILY HISTORY: Family history is unknown by patient. Family history unknown: Yes Reviewed and non-contributory or as noted above and/or in the HPI HOME MEDICATIONS: Prior to Admission medications Medication Sig Start Date End Date Taking? Authorizing Provider [place]ENROY [id number] units delayed release capsule TAKE 3 CAPSULES BY MOUTH 3 TIMES A DAY FOR 30 DAYS 05/28/25 Yes ProviderAriel MD sodium bicarbonate 650 MG tablet Take 2 tablets by mouth 3 times daily 06/18/25 Yes Shola Spivey MD oyster calcium (OYST-SONA) 500 MG TABS Take 1 tablet by mouth in the morning and at bedtime 06/18/25 Yes Shola Spivey MD magnesium oxide (MAG-OX) 400 MG tablet Take 1 tablet by mouth in the morning, at noon, and at bedtime 05/30/25 Yes Darnell Apple MD clonazePAM (KLONOPIN) 0.5 MG tablet Take 1 tablet by mouth 2 times daily. Patient taking differently: Take 1 tablet by mouth 2 times daily as needed. 05/30/25 Yes Michoacano Apple MD levothyroxine (SYNTHROID) 100 MCG tablet Take 1 tablet by mouth every morning (before breakfast) Patient taking differently: Take 112 mcg by mouth every morning (before breakfast) Yes Ariel Wells MD aspirin 81 MG EC tablet Take 1 tablet by mouth daily Yes Ariel Wells MD carvedilol (COREG) 12.5 MG tablet Take 1 tablet by mouth 2 times daily (with meals) Yes Ariel Wells MD VITAMIN D PO Take 1 tablet by mouth daily Unsure of dose Yes Ariel Wells MD [place]-3 Fatty Acids (FISH OIL) 600 MG CAPS Take 1 tablet by mouth Daily Yes Ariel Wells MD Multiple Vitamin (MULTIVITAMIN ADULT PO) Take 1 tablet by mouth daily Yes Ariel Wells MD vitamin C (ASCORBIC ACID) 500 MG tablet Take 1 tablet by mouth daily Yes Ariel Wells MD mycophenolate (CELLCEPT) 250 MG capsule Take 2 capsules by mouth 2 times daily 12/28/16 Yes Javi Soria DO tacrolimus (PROGRAF) 0.5 MG capsule Take 1 capsule by mouth 2 times daily Indications: for a total of 1mg/daily Yes Ariel Wells MD simvastatin (ZOCOR) 20 MG tablet Take 1 tablet by mouth nightly Yes Ariel Wells MD cycloSPORINE (RESTASIS) 0.05 % ophthalmic emulsion Place 1 drop into the left eye in the morning and at bedtime Yes Ariel Wells MD pramipexole (MIRAPEX) 0.25 MG tablet Take 1 tablet by mouth nightly Patient taking differently: Take 2 tablets by mouth nightly Yes Ariel Wells MD zoaclk-hhhxsutv-hnajfrv (CREON) 27606-105817 units CPEP delayed release capsule Take 4 capsules by mouth 3 times daily (with meals) Patient not taking: Reported on 06/22/2025 Ariel Wells MD alendronate (FOSAMAX) 70 MG tablet Take 1 tablet by mouth every other day Patient taking differently: Take 1 tablet by mouth every 7 days 12/23/16 Ariel Wells MD ALLERGIES: Phenergan [promethazine hcl], Ciprofloxacin, Morphine, and Oxycodone-acetaminophen OBJECTIVE: Vitals: 06/25/25 1500 06/25/25 1900 06/26/25 0448 06/26/25 0740 BP: (!) 163/85 (!) 165/81 (!) 140/74 Pulse: 70 74 71 Resp: 16 18 Temp: 97 ??F (36.1 ??C) 97.2 ??F (36.2 ??C) 98 ??F (36.7 ??C) TempSrc: Temporal Temporal Temporal SpO2: 100% 100% 100% Weight: 45.6 kg (100 lb 8 oz) Height: Intake/Output Summary (Last 24 hours) at 06/26/2025 0809 Last data filed at 06/25/2025 2320 Gross per 24 hour Intake 2375.08 ml Output -- Net 2375.08 ml PHYSICAL EXAM: General Appearance Alert , awake , not in acute distress HEENT - Head is normocephalic, atraumatic. Lungs - Bilateral equal air entry , no wheezes, rales or rhonchi, aeration good Cardiovascular - Heart sounds are normal. Regular rhythm, normal rate without murmur, gallop or rub. Abdomen - Soft, nontender, nondistended, no masses or organomegaly Neurologic - There are no new focal motor or sensory deficits Skin - No bruising or bleeding on exposed skin area, right thigh skin mass, unchanged./ Extremities - No cyanosis, clubbing or edema DIAGNOSTICS: Laboratory Testing: See [facility] EMR for lab data Recent Results (from the past 24 hours) CBC auto differential Collection Time: 06/26/25 5:55 AM Result Value Ref Range WBC 6.9 3.5 - 11.3 k/uL RBC 2.63 (L) 3.95 - 5.11 m/uL Hemoglobin 8.0 (L) 11.9 - 15.1 g/dL Hematocrit 24.0 (L) 36.3 - 47.1 % MCV 91.3 82.6 - 102.9 fL MCH 30.4 25.2 - 33.5 pg MCHC 33.3 28.4 - 34.8 g/dL RDW 14.1 11.8 - 14.4 % Platelets 119 (L) 138 - 453 k/uL MPV 10.7 8.1 - 13.5 fL NRBC Automated 0.0 0.0 per 100 WBC Neutrophils % 75 (H) 36 - 65 % Lymphocytes % 11 (L) 24 - 43 % Monocytes % 12 3 - 12 % Eosinophils % 1 1 - 4 % Basophils % 0 0 - 2 % Immature Granulocytes % 1 (H) 0 % Neutrophils Absolute 5.09 1.50 - 8.10 k/uL Lymphocytes Absolute 0.77 (L) 1.10 - 3.70 k/uL Monocytes Absolute 0.85 0.10 - 1.20 k/uL Eosinophils Absolute 0.09 0.00 - 0.44 k/uL Basophils Absolute <0.03 0.00 - 0.20 k/uL Immature Granulocytes Absolute 0.05 0.00 - 0.30 k/uL Basic Metabolic Panel Collection Time: 06/26/25 5:55 AM Result Value Ref Range Sodium 138 136 - 145 mmol/L Potassium 4.5 3.7 - 5.3 mmol/L Chloride 104 98 - 107 mmol/L CO2 19 (L) 20 - 31 mmol/L Anion Gap 15 9 - 16 mmol/L Glucose 91 74 - 99 mg/dL BUN 77 (H) 8 - 23 mg/dL Creatinine 3.8 (H) 0.50 - 0.90 mg/dL Est, Glom Filt Rate 11 (L) >60 mL/min/1.73m2 BUN/Creatinine Ratio 20 9 - 20 Calcium 7.6 (L) 8.6 - 10.4 mg/dL Phosphorus Collection Time: 06/26/25 5:55 AM Result Value Ref Range Phosphorus 3.2 2.5 - 4.5 mg/dL Magnesium Collection Time: 06/26/25 5:55 AM Result Value Ref Range Magnesium 1.7 1.6 - 2.4 mg/dL Hepatic Function Panel Collection Time: 06/26/25 5:55 AM Result Value Ref Range Albumin 3.4 (L) 3.5 - 5.2 g/dL Alkaline Phosphatase 328 (H) 35 - 104 U/L ALT 27 10 - 35 U/L AST 31 10 - 35 U/L Total Bilirubin 0.3 0.00 - 1.20 mg/dL Bilirubin, Direct <0.2 0.00 - 0.30 mg/dL Bilirubin, Indirect Can not be calculated 0.0 - 1.0 mg/dL Total Protein 5.6 (L) 6.6 - 8.7 g/dL Albumin/Globulin Ratio 1.5 1.0 - 2.5 Current Facility-Administered Medications Medication Dose Route Frequency Provider Last Rate Last Admin cholestyramine light packet 4 g 4 g Oral BID Gaetano Mazariegos MD 0.9 % sodium chloride infusion IntraVENous Continuous Shola Spivey MD 75 mL/hr at 06/25/25 2320 Rate Verify at 06/25/25 2320 calcium carbonate (TUMS) chewable tablet 1,000 mg 1,000 mg Oral BID Gaetano Mazariegos MD 1,000 mg at 06/25/25 2131 0.9 % sodium chloride infusion IntraVENous PRN Saadia Carrillo APRN - CNP tacrolimus (PROGRAF) capsule 1 mg (Patient Supplied) 1 mg Oral Daily Saadia Carrillo APRN - CNP 1 mg at 06/25/25 0843 epoetin david-epbx (RETACRIT) injection 6,000 Units 6,000 Units SubCUTAneous Once per day on Saturday Shola Spivey MD 6,000 Units at 06/25/25 1659 vitamin D (ERGOCALCIFEROL) capsule 50,000 Units 50,000 Units Oral Weekly Shola Spivey MD 50,000 Units at 06/23/25 1422 calcium acetate (PHOSLO) capsule 667 mg 1 capsule Oral TID Shola Spivey MD 667 mg at 653 loperamide (IMODIUM) capsule 2 mg 2 mg Oral 4x Daily PRN Saadia Carrillo APRN - CNP 2 mg at 06/25/25 213 pantoprazole (PROTONIX) 40 mg in sodium chloride (PF) 0.9 % 10 mL injection 40 mg IntraVENous DailySaadia bradshaw APRN - CNP 40 mg at 06/25/25 0843 [Held by provider] alendronate (FOSAMAX) tablet 70 mg 70 mg Oral Q7 Days Gaetano Mazariegos MD [Held by provider] aspirin EC tablet 81 mg 81 mg Oral Daily Gaetano Mazariegos MD 81 mg at 06/25/25 0842 carvedilol (COREG) tablet 12.5 mg 12.5 mg Oral BID Gaetano Mazariegos MD 12.5 mg at 06/25/25 165 clonazePAM (KLONOPIN) tablet 0.5 mg 0.5 mg Oral BID PRN Gaetano Mazariegos MD 0.5 mg at 06/25/25 2131 levothyroxine (SYNTHROID) tablet 112 mcg 112 mcg Oral QAM Gaetano Mazariegos MD 112 mcg at 06/26/25 0747 magnesium oxide (MAG-OX) tablet 400 mg 400 mg Oral TID Gaetano Mazariegos MD 400 mg at 06/25/25 213 vgotbb-iwalktff-dwerwcz (ZENPEP) delayed release capsule 5,000 Units 5,000 Units Oral TID Gaetano Mazariegos MD 5,000 Units at 06/25/25 165 yimymg-slwcpipi-zhvuras (ZENPEP) delayed release capsule 20,000 Units 20,000 Units Oral TID Gaetano Mazariegos MD 20,000 Units at 06/25/25 1652 multivitamin 1 tablet 1 tablet Oral Daily Gaetano Mazariegos MD 1 tablet at 06/25/25 0843 mycophenolate (CELLCEPT) capsule 500 mg (Patient Supplied) 500 mg Oral BID Gaetano Mazariegos MD 500 mgat 06/25/25 213 pramipexole (MIRAPEX) tablet 0.5 mg 0.5 mg Oral Nightly Gaetano Mazariegos MD 0.5 mg at 06/25/252130 atorvastatin (LIPITOR) tablet 10 mg 10 mg Oral Daily Gaetano Mazariegos MD 10 mg at 06/25/25 0843 sodium bicarbonate tablet 1,300 mg 1,300 mg Oral TID Gaetano Mazariegos MD 1,300 mg at 06/25/25 2131 ascorbic acid (VITAMIN C) tablet 500 mg 500 mg Oral Daily Gaetano Mazariegos MD 500 mg at 06/25/25 0843 sodium chloride flush 0.9 % injection 10 mL 10 mL IntraVENous 2 times per day Gaetano Mazariegos MD 10 mL at 06/25/25 0845 sodium chloride flush 0.9 % injection 10 mL 10 mL IntraVENous PRN Gaetano Mazariegos MD 0.9 % sodium chloride infusion IntraVENous PRN Gaetano Mazariegos MD ondansetron (ZOFRAN-ODT) disintegrating tablet 4 mg 4 mg Oral Q8H PRN Gaetano Mazariegos MD Or ondansetron (ZOFRAN) injection 4 mg 4 mg IntraVENous Q6H PRN Gaetano Mazariegos MD polyethylene glycol (GLYCOLAX) packet 17 g 17 g Oral Daily PRN Gaetano Mazariegos MD acetaminophen (TYLENOL) tablet 650 mg 650 mg Oral Q6H PRN Gaetano Mazariegos MD 650 mg at 06/24/25 1622 Or acetaminophen (TYLENOL) suppository 650 mg 650 mg Rectal Q6H PRN Gaetano Mazariegos MD ASSESSMENT: Principal Problem: Hypocalcemia Active Problems: Heart transplanted (HCC) Hypomagnesemia Diverticulosis of large intestine without hemorrhage Duodenitis Pancreatic insufficiency Generalized anxiety disorder History of heart transplant (HCC) Moderate malnutrition CKD (chronic kidney disease), stage IV (HCC) Hyperphosphatemia Resolved Problems: Severe malnutrition PLAN: Primary Problem(s): Hypocalcemia Condition is at treatment goal Treatment plan: Continue current treatment Imaging: no further imaging studies ordered today Medications: Continue current meds Medication Monitoring / High Risk Medications: none Nephrology is following closely Monitor labs closely Added/trial of Cholestyramine, may help w/ bile acid malabsorption/diarrhea, imodium to be continued, and Add Probiotics today; hold protein drinks for now Dispo pending DVT prophylaxis: as ordered GI prophylaxis: as ordered Above plan discussed with the patient who agreed to the above plan Discussed care plan with nurse after getting their input. Please note that this chart was generated using voice recognition [employer] dictation software. Although every effort was made to ensure the accuracy of this automated district attorney, some errors in district attorney may have occurred. Gaetano Mazariegos MD 06/26/2025 8:09 AM * Sahra Burger RN - 06/26/2025 7:40 AM EDT Entered patient's room for morning vital signs and head to toe assessment. Patient resting in the bed at this time. A&O x4, calm, and cooperative. Patient denies of pain at this time. Vital signsand head to toe assessment completed at this time, see flowsheets for more details. Patient reportssleeping well last night. Wound to R upper thigh clean,dry, and intact. Patient denies no more needs at this time. Call light and bedside table within reach. Bed/chair wheels locked. Bed in lowest position. * Alannah Pham RN - 06/25/2025 7:08 PM EDT Class A Lineman at bedside for shift assessment. PT A&O x4, they are able to answer questions and followcommands appropriately. Vitals and assessment completed as charted, see flowsheets. PT denies any other needs at this time and is resting comfortably. Call light in reach, bed in the lowest position and locked, care on-going. * Yaritza Ruggiero RN - 06/25/2025 5:36 PM EDT Pt has had at least 6 episodes of diarrhea this shift. She has been requesting imodium every 6 hours as ordered. Pt feeling discouraged. Emotional support given. Pt is hopeful she will be discharged tomorrow. * Gaetano Mazariegos MD - 06/25/2025 3:14 PM EDT See prior Progress Note * Shola Spivey MD - 06/25/2025 11:50 AM EDT [facility] [phone] Nephrology progress note 06/25/2025, 11:50 AM Pt Name: Sylvia Herrera Birthdate: 1945 Admit Date: 06/22/2025 3:44 PM Primary Care Physician: Vijay Davis MD Room number 0328/0328-01 Patient was evaluated through a synchronous (real-time) audio-video encounter. The patient (or guardian if applicable) is aware that this is a billable service, which includes applicable co-pays. This virtual visit was conducted with patient's (and/or legal guardian's consent). Patient identification was verified, and a caregiver was present when appropriate. The patient was located at home in a state where the provider was licensed to provide care Virtual visit was done to address concerns as mentioned above. Due to this being a TeleHealth encounter, evaluation of the following organ systems was limited: EENT/Resp/CV/GI//MS/Neuro/Skin/Lymph Services were provided through a video synchronous discussion virtually to substitute for in-personvisit. Telehealth service was provided with the patient at [facility] and myself the physician in my office and RN who has initiated the visit. TELEHEALTH EVALUATION -- Audio/Visual Patient's Location: Hospital Room # 328 Physician's (myself) Location: [facility] Patient's nurse: Present Chief Complaint: Nephrology following for DREW/CKD Subjective: Patient seen and examined No chest pain or shortness of breath Feels okay Reports loose stools Objective: 24HR INTAKE/OUTPUT: Intake/Output Summary (Last 24 hours) at 06/25/2025 1150 Last data filed at 06/25/2025 0817 Gross per 24 hour Intake 4559.03 ml Output -- Net 4559.03 ml I/O last 3 completed shifts: In: 6745 [P.O.:2130; I.V.:4381.6; IV Piggyback:233.4] Out: - I/O this shift: In: 976 [P.O.:240; I.V.:736] Out: - Admission weight: 46.7 kg (102 lb 14.4 oz) Wt Readings from Last 3 Encounters: 06/25/25 46 kg (101 lb 6.4 oz) 06/18/25 46.3 kg (102 lb) 05/30/25 48.9 kg (107 lb 11.2 oz) Body mass index is 18.55 kg/m??. Physical examination VITALS: Vitals: 06/24/25 1345 06/24/25 1929 06/25/25 0600 06/25/25 0815 BP: (!) 148/78 (!) 158/79 (!) 171/92 Pulse: 71 69 77 Resp: 18 18 18 Temp: 97.4 ??F (36.3 ??C) 97 ??F (36.1 ??C) 97.5 ??F (36.4 ??C) TempSrc: Temporal Temporal Temporal SpO2: 100% 99% 100% Weight: 46 kg (101 lb 6.4 oz) Height: Constitutional and General Appearance: alert and cooperative, appears comfortable, no apparent distress, not diaphoretic, Appears well-developed and well-nourished. RA Lungs: no use of accessory muscles or labored breathing noted, Respiratory effort observed to be normal Extremities: No visible swelling Neuro: no slurred speech, no facial drooping Psychiatric: Normal mood and affect, Not agitated Mental status: Alert and awake, Oriented to person/place/time, Able to follow commands Due to this being a TeleHealth encounter, evaluation of the following organ systems is limited: EENT/Resp/CV/GI//MS/Neuro/Skin/Lymph Lab Data CBC: Recent Labs 06/23/25 0615 06/23/25 1640 06/24/25 0600 06/25/25 0630 WBC 5.6 -- 6.8 5.9 HGB 6.7* 8.7* 8.5* 8.0* HCT 21.0* 26.5* 26.3* 24.4* PLT 106* -- 130* 119* BMP: Recent Labs 06/22/25 1403 06/22/25 1605 06/23/25 0615 06/23/25 1640 06/24/25 0600 06/25/25 0630 NA 133* 135* 134* -- 137 137 K 5.0 5.3 4.8 -- 4.6 4.4 CL 103 101 104 -- 102 102 CO2 12* 15* 14* -- 16* 19* BUN 69* 70* 79* -- 81* 79* CREATININE 4.6* 4.6* 4.4* -- 4.0* 3.7* GLUCOSE 177* 134* 104* -- 106* 87 CALCIUM 5.6* 5.8* 6.4* -- 6.4* 7.1* MG -- 1.1* -- 1.6 1.5* -- PHOS 4.6* 4.6* 4.9* -- -- -- Hepatic: Recent Labs 06/22/25 1605 06/23/25 0615 AST 33 25 ALT 32 25 BILITOT 0.3 0.3 ALKPHOS 386* 325* Meds: Infusion: sodium chloride sodium bicarbonate 75 mEq in sodium chloride 0.45 % 1,000 mL infusion 50 mL/hr at 06/25/25 0849 sodium chloride Meds: calcium carbonate 1,000 mg Oral BID tacrolimus 1 mg Oral Daily epoetin david-epbx 6,000 Units SubCUTAneous Once per day on Saturday vitamin D 50,000 Units Oral Weekly calcium acetate 1 capsule Oral TID WC pantoprazole (PROTONIX) 40 mg in sodium chloride (PF) 0.9 % 10 mL injection 40 mg IntraVENous Daily [Held by provider] alendronate 70 mg Oral Q7 Days aspirin 81 mg Oral Daily carvedilol 12.5 mg Oral BID WC levothyroxine 112 mcg Oral QAM AC magnesium oxide 400 mg Oral TID zsbwxl-dzmjsvqp-cwvrtcm 5,000 Units Oral TID WC ullcub-snrjagvz-btrpuwo 20,000 Units Oral TID WC multivitamin 1 tablet Oral Daily mycophenolate 500 mg Oral BID pramipexole 0.5 mg Oral Nightly atorvastatin 10 mg Oral Daily sodium bicarbonate 1,300 mg Oral TID vitamin C 500 mg Oral Daily sodium chloride flush 10 mL IntraVENous 2 times per day Meds prn: sodium chloride, loperamide, clonazePAM, sodium chloride flush, sodium chloride, ondansetron OR ondansetron, polyethylene glycol, acetaminophen OR acetaminophen Impression and Plan: Severe DREW on CKD 4 Patient's serum creatinine was around 2.9-3.0 in May. Went up to 3.5 early June and then upto 4.6 on admission. She does have some underlying CKD with progression based on old labs. She has been on calcineurin inhibitors for a long time. Appears to also have some element of superimposed DREW on underlying CKD likely secondary to intravascular volume depletion from diarrhea. Her renal function is improving with IV fluids but not quite at baseline yet. Would prefer to see it improved even further prior to discharge. Discussed with patient and given that she is at high risk of recurrent dehydration from GI losses, I feel it is in the best interest of the patient to continue intravenous hydration for another 24 hours with the hope that her creatinine would be closer to baseline by tomorrow and then hopefully can be discharged. She voiced understanding and is in agreement. On IV normal saline Ultrasound: (-) Hydronephrosis, left simple cyst 2. Severe metabolic acidosis secondary to DREW/CKD as well as diarrhea. Improving. On oral sodium bicarbonate 3. Mild hyperkalemia improved 4. Azotemia without uremia 5. Severe hypocalcemia. Continue Os-Sona. Will give additional IV calcium gluconate - calcium is still low but improving 6. Vitamin D deficiency. Continue ergocalciferol. 7. Secondary hyperparathyroidism. on PhosLo (calcium based phosphate binders) 8. Anemia. S/p blood transfusion. Added Retacrit 9. Heart transplant 01/2006 10. Hypomagnesemia. On replacement D/W pt and RN Shola Spivey MD [facility] * Yaritza Ruggiero RN - 06/25/2025 8:24 AM EDT Vitals and assessment completed at this time as charted. Pt sitting up in chair. Alert and orientedx4. Denies pain. Has not had much diarrhea today but requests imodium. Hoping to go home. Fall precautions in place. * Gaetano Mazariegos MD - 06/25/2025 6:14 AM EDT Images from the original note were not included. [address] , [place], [place], [address] Attestation Patient: Sylvia Herrera Date of Admission: 06/22/2025 3:44 PM Hospital Day # 3 Date of Evaluation: 06/25/2025 I personally evaluated and examined the patient [id number] in conjunction with the PA/FOOD AND BEVERAGE LEAD and agree with the management and dispostition of the patient. Please see the PA/FOOD AND BEVERAGE LEAD's note for full details.My bautista findings are: SUBJECTIVE: Patient seen for follow up of Hypocalcemia. Patient seen and examined at the bed side , no new acute events overnight and, no new complains except for intermittent diarrhea,depending on the type of food she eats. Notes from nursing staff and Consults had been reviewed, and the overnight progress had been checked with the nursing staff as well. OBJECTIVE: Vitals: Temp: 97 ??F (36.1 ??C) BP: (!) 163/85 Respirations: 16 Pulse: 70 SpO2: 100 % Weight Wt Readings from Last 3 Encounters: 06/25/25 46 kg (101 lb 6.4 oz) 06/18/25 46.3 kg (102 lb) 05/30/25 48.9 kg (107 lb 11.2 oz) Body mass index is 18.55 kg/m??. 24HR INTAKE/OUTPUT: Intake/Output Summary (Last 24 hours) at 06/25/2025 1625 Last data filed at 06/25/2025 1514 Gross per 24 hour Intake 3150.93 ml Output -- Net 3150.93 ml Exam: GEN: Awake, alert and oriented x3. EYES: EOMI, pupils equal NECK: Supple. No lymphadenopathy. No carotid bruit CVS: regular rate and rhythm, systolic murmur PULM: CTA, no wheezes, rales or rhonchi, no acute respiratory distress ABD: Bowels sounds normal. Abdomen is soft. No distention. no tenderness to palpation. EXT: no edema bilaterally . No calf tenderness. NEURO: Moves all extremities. Motor and sensory are grossly intact SKIN: No rashes. No skin lesions. DATA: Complete Blood Count: Recent Labs 06/23/25 0615 06/23/25 1640 06/24/25 0600 06/25/25 0630 WBC 5.6 -- 6.8 5.9 RBC 2.25* -- 2.86* 2.68* HGB 6.7* 8.7* 8.5* 8.0* HCT 21.0* 26.5* 26.3* 24.4* MCV 93.3 -- 92.0 91.0 RDW 13.3 -- 13.9 13.8 PLT 106* -- 130* 119* Recent Labs 06/23/25 0615 06/24/25 0600 06/25/25 0630 NEUTROABS 4.08 5.36 4.30 LYMPHOPCT 13* 9* 12* LYMPHSABS 0.73* 0.64* 0.69* MONOPCT 12 10 13* BASOPCT 0 0 0 IMMGRAN 1* 1* 1* CMP: Lab Results Component Value Date GLUCOSE 87 06/25/2025 BUN 79 (H) 06/25/2025 CREATININE 3.7 (H) 06/25/2025 NA 137 06/25/2025 K 4.4 06/25/2025 CALCIUM 7.1 (L) 06/25/2025 CL 102 06/25/2025 CO2 19 (L) 06/25/2025 BILITOT 0.3 06/23/2025 ALKPHOS 325 (H) 06/23/2025 ALT 25 06/23/2025 AST 25 06/23/2025 UA: Lab Results Component Value Date COLORU Yellow 06/22/2025 WBCUA 2 TO 5 06/22/2025 RBCUA None 06/22/2025 LEUKOCYTESUR SMALL (A) 06/22/2025 GLUCOSEU TRACE (A) 06/22/2025 KETUA NEGATIVE 06/22/2025 PROTEINU 2+ (A) 06/22/2025 HGBUR 1+ (A) 06/22/2025 CASTUA NOT REPORTED 01/10/2017 BACTERIA TRACE (A) 06/22/2025 YEAST NOT REPORTED 01/10/2017 Lactic Acid: No results found for: LACTA High Sensitivity Troponin: Recent Labs 06/22/25 1823 TROPHS 17* Radiology/Imaging: CT FEMUR RIGHT WO CONTRAST Final Result 1. Probable skin blister on the anteromedial aspect of the mid right thigh measuring approximately 6.7 x 5.8 x 1.3 cm. Mild adjacent subcutaneous fat stranding. No deep soft tissue ulceration or soft tissue gas identified. 2. No acute osseous abnormality. ASSESSMENT: Principal Problem: Hypocalcemia Active Problems: Heart transplanted (HCC) Hypomagnesemia Diverticulosis of large intestine without hemorrhage Duodenitis Pancreatic insufficiency Generalized anxiety disorder History of heart transplant (HCC) Moderate malnutrition CKD (chronic kidney disease), stage IV (HCC) Hyperphosphatemia Resolved Problems: Severe malnutrition PLAN: I agree with the plan as outlined in the FOOD AND BEVERAGE LEAD/PA's note Disposition: Discharge plan is pending Please note that this chart was generated using voice recognition [employer] dictation software. Although every effort was made to ensure the accuracy of this automated district attorney, some errors in district attorney may have occurred. Gaetano Mazariegos MD 06/25/2025 4:25 PM DUSTY FLORES CNP 06/25/2025 6:14 AM Progress Note SUBJECTIVE: Patient seen for f/u of Hypocalcemia. She is feeling okay this morning. Transfused yesterday and hgb has improved. Continues with diarrhea but slowing down. Encouraged to take immodium daily to keep under control. Awaiting nephrology clearance for discharge home ROS: Constitutional: negative for fevers, and negative for chills. Respiratory: negative for shortness of breath, negative for cough, and negative for wheezing Cardiovascular: negative for chest pain, and negative for palpitations Gastrointestinal: negative for abdominal pain, negative for nausea,negative for vomiting, negative for diarrhea, and negative for constipation All other systems were reviewed with the patient and are negative unless otherwise stated in HPI OBJECTIVE: Vitals: Vitals: 06/24/251928 BP: (!) 158/79 Pulse: 69 Resp: 18 Temp: 97 ??F (36.1 ??C) SpO2: 99% Weight - Scale: 46 kg (101 lb 6.4 oz) (Bed zeroed) Height: 157.5 cm (5' 2 ) Weight Wt Readings from Last 3 Encounters: 06/25/25 46 kg (101 lb 6.4 oz) 06/18/25 46.3 kg (102 lb) 05/30/25 48.9 kg (107 lb 11.2 oz) Body mass index is 18.55 kg/m??. 24HR INTAKE/OUTPUT: Intake/Output Summary (Last 24 hours) at 06/25/2025 0614 Last data filed at 06/25/2025 0510 Gross per 24 hour Intake 4443.03 ml Output -- Net 4443.03 ml Exam: GEN: Awake, alert and oriented x3. EYES: EOMI, pupils equal NECK: Supple. No lymphadenopathy. No carotid bruit CVS: regular rate and rhythm, no audible murmur PULM: CTA, no wheezes, rales or rhonchi, no acute respiratory distress ABD: Bowels sounds normal. Abdomen is soft. No distention. no tenderness to palpation. EXT: no edema bilaterally . No calf tenderness. NEURO: Moves all extremities. Motor and sensory are grossly intact SKIN: No rashes. Wound to right leg, ocvererd with bandage. Clean dry and intact. Diagnostic Data: Complete Blood Count: Recent Labs 06/22/25 1605 06/23/25 0615 06/23/25 1640 06/24/25 0600 WBC 6.4 5.6 -- 6.8 RBC 2.58* 2.25* -- 2.86* HGB 7.7* 6.7* 8.7* 8.5* HCT 24.2* 21.0* 26.5* 26.3* MCV 93.8 93.3 -- 92.0 MCH 29.8 29.8 -- 29.7 MCHC 31.8 31.9 -- 32.3 RDW 13.5 13.3 -- 13.9 PLT 121* 106* -- 130* MPV 11.2 11.3 -- 10.9 Last 3 Blood Glucose: Recent Labs 06/22/25 1403 06/22/25 1605 06/23/25 0615 06/24/25 0600 GLUCOSE 177* 134* 104* 106* Comprehensive Metabolic Profile: Recent Labs 06/22/25 1605 06/23/25 0615 06/24/25 0600 NA 135* 134* 137 K 5.3 4.8 4.6 CL 101 104 102 CO2 15* 14* 16* BUN 70* 79* 81* CREATININE 4.6* 4.4* 4.0* GLUCOSE 134* 104* 106* CALCIUM 5.8* 6.4* 6.4* BILITOT 0.3 0.3 -- ALKPHOS 386* 325* -- AST 33 25 -- ALT 32 25 -- Urinalysis: Lab Results Component Value Date/Time NITRU NEGATIVE 06/22/2025 02:03 PM COLORU Yellow 06/22/2025 02:03 PM PHUR 6.0 06/22/2025 02:03 PM PHUR 8.5 01/10/2017 03:36 PM WBCUA 2 TO 5 06/22/2025 02:03 PM RBCUA None 06/22/2025 02:03 PM MUCUS NOT REPORTED 01/10/2017 03:36 PM TRICHOMONAS NOT REPORTED 01/10/2017 03:36 PM YEAST NOT REPORTED 01/10/2017 03:36 PM BACTERIA TRACE 06/22/2025 02:03 PM LEUKOCYTESUR SMALL 06/22/2025 02:03 PM UROBILINOGEN Normal 06/22/2025 02:03 PM BILIRUBINUR NEGATIVE 06/22/2025 02:03 PM GLUCOSEU TRACE 06/22/2025 02:03 PM KETUA NEGATIVE 06/22/2025 02:03 PM AMORPHOUS NOT REPORTED 01/10/2017 03:36 PM HgBA1c: No results found for: LABA1C Lactic Acid: No results found for: LACTA Troponin: No results for input(s): TROPONINI in the last 72 hours. CRP: No results for input(s): CRP in the last 72 hours. Radiology/Imaging: CT FEMUR RIGHT WO CONTRAST Final Result 1. Probable skin blister on the anteromedial aspect of the mid right thigh measuring approximately 6.7 x 5.8 x 1.3 cm. Mild adjacent subcutaneous fat stranding. No deep soft tissue ulceration or soft tissue gas identified. 2. No acute osseous abnormality. ASSESSMENT / PLAN: MEDICAL DECISION MAKING: Primary Problem(s): Hypocalcemia Condition is an acute or chronic illness or injury that poses threat to life or bodily function Condition is stable Treatment plan: nephrology adjusting replacement Imaging: no further imaging studies ordered today Medications: Continue current meds Medication Monitoring / High Risk Medications: none Nephrology consulted - reviewed note, improving but want another day Monitor labs closely Obtain stool studies Nutrition status: at risk for malnutrition Clinical Data Associate consult initiated I/O Daily weight Monitor Daily intake Nutritional Supplements as tolerated MALNUTRITION ASSESSMENT AND PLAN The following was documented by the Dietitian: Malnutrition Assessment Context of Malnutrition: Acute Illness (06/23/25847) Acute Illness - Energy Intake : Mild decrease in energy intake (06/23/25847) Acute Illness - Weight Loss : Mild weight loss (06/23/25847) Acute Illness - Body Fat Loss: Mild body fat loss (06/23/25847) Acute Illness - Body Fat Loss Locations: Fat Overlying Ribs (06/23/25847) Acute Illness - Muscle Mass Loss: Mild muscle mass loss (06/23/25847) Acute Illness - Muscle Mass Loss Location: Clavicles (pectoralis & deltoids) (06/23/25847) Acute Illness - Fluid Accumulation : Unable to assess (06/23/25847) Acute Illness - Microbiology Lab Manager Strength: Not Performed (06/23/25847) Acute Illness - Malnutrition Score: 2 (06/23/25847) Malnutrition Status: Moderate malnutrition (06/23/25847) I agree with the dietitian's malnutrition assessment. Medical Nutrition Therapy: continue current nutrition therapy Hospital Prophylaxis: DVT: SCD's Stress Ulcer: as ordered Disposition: Shared decision making: All test results, treatment options and disposition options were discussed with the patient today Social determinants of health that may impact management: none Code status: Full Code Disposition: Discharge plan is pending [facility] Advanced Care Planning documentation: [x] I have confirmed that the patient's Advance Care Plan is present, Code Status is documented, orsurrogate decision maker is listed in the patient's medical record [If yes , STOP HERE] [] The patient's Advance Care Plan is NOT present because: [] I confirmed today that the patient does not wish or was not able to name a surrogate decision maker or provide and advance care plan. [] Hospice care is currently being provided or has been provided within the calendar year. [] I did NOT confirm today the presence of an Advance Care Plan or surrogate decision maker documented within the patient's medical record. [DOES NOT SATISFY [facility] PERFORMANCE] DUSTY FLORES CNP , PHOTO PRINTER, FOOD AND BEVERAGE LEAD-C Hospitalist Medicine 06/25/2025, 6:14 AM * Yvonne Mcclendon RN - 06/24/2025 9:00 PM EDT Dressing on right thigh completely saturated. Dressing changed to 2 ABD pads and tape at this time. * Yvnone Mcclendon RN - 06/24/2025 7:29 PM EDT Patient A&O x4, calm, and cooperative. Vital signs and head to toe assessment completed at thistime, see flowsheets for details. Patient was briefly educated on medications due tonight. Patient denies needs at this time. Call light within reach. Bedside table within reach, bed in lowest position, bed/chair wheels locked, and alarm is set. Care ongoing. * Shawna Tipton RN - 06/24/2025 1:55 PM EDT Patient reassessment completed, and vitals updated, see flowsheet. No changes to previous assessment. Patient independent in the room, calling out accordingly. Patient ambulating frequently. Call light within reach. No further needs at this time. Care ongoing. * Tammy Cintron - 06/24/2025 1:17 PM EDT Patient upset after hearing she will not be discharged today per Dr Spivey. Emotional support and encouragement provided. * Shawna Tipton RN - 06/24/2025 1:[address] Spivey doing tele visit. * Shola Spivey MD - 06/24/2025 1:06 PM EDT [facility] [phone] Nephrology progress note 06/24/2025, 1:06 PM Pt Name: Sylvia Herrera Birthdate: 1945 Admit Date: 06/22/2025 3:44 PM Primary Care Physician: Vijay Davis MD Room number 0328/0328-01 Patient was evaluated through a synchronous (real-time) audio-video encounter. The patient (or guardian if applicable) is aware that this is a billable service, which includes applicable co-pays. This virtual visit was conducted with patient's (and/or legal guardian's consent). Patient identification was verified, and a caregiver was present when appropriate. The patient was located at home in a state where the provider was licensed to provide care Virtual visit was done to address concerns as mentioned above. Due to this being a TeleHealth encounter, evaluation of the following organ systems was limited: EENT/Resp/CV/GI//MS/Neuro/Skin/Lymph Services were provided through a video synchronous discussion virtually to substitute for in-personvisit. Telehealth service was provided with the patient at [facility] and myself the physician in my office and RN who has initiated the visit. TELEHEALTH EVALUATION -- Audio/Visual Patient's Location: Hospital Room # 328 Physician's (myself) [facility]: Present Chief Complaint: Nephrology following for DREW/CKD Subjective: Patient seen and examined No chest pain or shortness of breath Feels okay Reports loose stools Objective: 24HR INTAKE/OUTPUT: Intake/Output Summary (Last 24 hours) at 06/24/2025 1306 Last data filed at 06/24/2025 0500 Gross per 24 hour Intake 2763.67 ml Output -- Net 2763.67 ml I/O last 3 completed shifts: In: 3600.7 [P.O.:890; I.V.:2349; Blood:361.7] Out: 700 [Urine:700] No intake/output data recorded. Admission weight: 46.7 kg (102 lb 14.4 oz) Wt Readings from Last 3 Encounters: 06/24/25 46.7 kg (103 lb) 06/18/25 46.3 kg (102 lb) 05/30/25 48.9 kg (107 lb 11.2 oz) Body mass index is 18.84 kg/m??. Physical examination VITALS: Vitals: 06/23/25 1349 06/23/25 1930 06/24/25 0500 06/24/25 0727 BP: (!) 169/89 (!) 145/64 (!) 142/81 Pulse: 73 75 66 Resp: Temp: 97.4 ??F (36.3 ??C) 97.7 ??F (36.5 ??C) 97.5 ??F (36.4 ??C) TempSrc: Temporal Temporal Temporal SpO2: 100% 99% 99% Weight: 46.7 kg (103 lb) Height: Constitutional and General Appearance: alert and cooperative, appears comfortable, no apparent distress, not diaphoretic, Appears well-developed and well-nourished. RA Lungs: no use of accessory muscles or labored breathing noted, Respiratory effort observed to be normal Extremities: No visible swelling Neuro: no slurred speech, no facial drooping Psychiatric: Normal mood and affect, Not agitated Mental status: Alert and awake, Oriented to person/place/time, Able to follow commands Due to this being a TeleHealth encounter, evaluation of the following organ systems is limited: EENT/Resp/CV/GI//MS/Neuro/Skin/Lymph Lab Data CBC: Recent Labs 06/22/25 1605 06/23/25 0615 06/23/25 1640 06/24/25 0600 WBC 6.4 5.6 -- 6.8 HGB 7.7* 6.7* 8.7* 8.5* HCT 24.2* 21.0* 26.5* 26.3* PLT 121* 106* -- 130* BMP: Recent Labs 06/22/25 1403 06/22/25 1605 06/23/25 0615 06/23/25 1640 06/24/25 0600 NA 133* 135* 134* -- 137 K 5.0 5.3 4.8 -- 4.6 CL 103 101 104 -- 102 CO2 12* 15* 14* -- 16* BUN 69* 70* 79* -- 81* CREATININE 4.6* 4.6* 4.4* -- 4.0* GLUCOSE 177* 134* 104* -- 106* CALCIUM 5.6* 5.8* 6.4* -- 6.4* MG -- 1.1* -- 1.6 1.5* PHOS 4.6* 4.6* 4.9* -- -- Hepatic: Recent Labs 06/22/25 1605 06/23/25 0615 AST 33 25 ALT 32 25 BILITOT 0.3 0.3 ALKPHOS 386* 325* Meds: Infusion: sodium chloride sodium bicarbonate 75 mEq in sodium chloride 0.45 % 1,000 mL infusion 50 mL/hr at 06/24/25 1120 sodium chloride Meds: magnesium sulfate 2,000 mg IntraVENous Once calcium carbonate 1,000 mg Oral BID tacrolimus 1 mg Oral Daily epoetin david-epbx 6,000 Units SubCUTAneous Once per day on Saturday vitamin D 50,000 Units Oral Weekly calcium acetate 1 capsule Oral TID WC pantoprazole (PROTONIX) 40 mg in sodium chloride (PF) 0.9 % 10 mL injection 40 mg IntraVENous Daily [Held by provider] alendronate 70 mg Oral Q7 Days aspirin 81 mg Oral Daily carvedilol 12.5 mg Oral BID WC levothyroxine 112 mcg Oral QAM AC magnesium oxide 400 mg Oral TID uzbisi-fkfwbkuw-zwvhics 5,000 Units Oral TID WC eyakyf-wwjyevyw-exqpmso 20,000 Units Oral TID WC multivitamin 1 tablet Oral Daily mycophenolate 500 mg Oral BID pramipexole 0.5 mg Oral Nightly atorvastatin 10 mg Oral Daily sodium bicarbonate 1,300 mg Oral TID vitamin C 500 mg Oral Daily sodium chloride flush 10 mL IntraVENous 2 times per day Meds prn: sodium chloride, loperamide, clonazePAM, sodium chloride flush, sodium chloride, ondansetron OR ondansetron, polyethylene glycol, acetaminophen OR acetaminophen Impression and Plan: DREW on CKD 4 Patient's serum creatinine was around 2.9-3.0 in May. Went up to 3.5 early June and then upto 4.6 on admission She does have some underlying CKD with progression based on old labs. She has been on calcineurin inhibitors for a long time. Discussed with patient in detail. Appears to also have some element of superimposed DREW on underlying CKD likely secondary to intravascular volume depletion from diarrhea. Started on IV fluids-- creat is down to 4.0 today. Continue with IVF with bicarbonate for today urine sodium 83 and urine chloride 79 No urgent indication to start dialysis but patient may need dialysis in the near future Ultrasound: (-) Hydronephrosis, left simple cyst 2. Metabolic acidosis secondary to DREW/CKD as well as diarrhea. C/w IV bicarbonate drip 3. Mild hyperkalemia improved 4. Azotemia without uremia 5. Hypocalcemia. PTH noted. Ordered STAT ionized calcium but it is a send out. Continue Os-Sona. Will give additional IV calcium gluconate 6. Vitamin D deficiency. Continue ergocalciferol. 7. Secondary hyperparathyroidism. Add PhosLo (calcium based phosphate binders) 8. Anemia. Receiving blood transfusion. Added Retacrit 9. Heart transplant 01/2006 10. Hypomagnesemia. Will replace with IV magnesium sulfate. D/W patient in detail Plan of care reviewed with patient and RN Shola Spivey MD [facility] * Shawna Tipton RN - 06/24/2025 7:50 AM EDT Entered patient's room for morning vital signs and head to toe assessment. Patient resting in the bed at this time. A&O x4, calm, and cooperative. Patient has no complaints of pain at this time. Vital signs and head to toe assessment completed at this time, see flowsheets for more details. Patient denies any muscle cramping, twitching, no tingling. Patient still experiencing diarrhea at this time. Patient denies no more needs at this time. Call light and bedside table within reach. Bed/chair wheels locked. Bed in lowest position. * Gaetano Mazariegos MD - 06/24/2025 6:52 AM EDT Images from the original note were not included. [address] , [place], [place], [address] Attestation Patient: Sylvia Herrera Date of Admission: 06/22/2025 3:44 PM Hospital Day # 2 Date of Evaluation: 06/24/2025 I personally evaluated and examined the patient [id number] in conjunction with the PA/FOOD AND BEVERAGE LEAD and agree with the management and dispostition of the patient. Please see the PA/FOOD AND BEVERAGE LEAD's note for full details.My bautista findings are: SUBJECTIVE: Patient seen for follow up of Hypocalcemia. She is doing better than prior and denies any concerns today. Discussed POC. OBJECTIVE: Vitals: Temp: 97 ??F (36.1 ??C) BP: (!) 158/79 Respirations: 18 Pulse: 69 SpO2: 99 % Weight Wt Readings from Last 3 Encounters: 06/24/25 46.7 kg (103 lb) 06/18/25 46.3 kg (102 lb) 05/30/25 48.9 kg (107 lb 11.2 oz) Body mass index is 18.84 kg/m??. 24HR INTAKE/OUTPUT: Intake/Output Summary (Last 24 hours) at 06/24/2025 1943 Last data filed at 06/24/2025 1804 Gross per 24 hour Intake 6022.1 ml Output -- Net 6022.1 ml Exam: GEN: Awake, alert and oriented x3. EYES: EOMI, pupils equal NECK: Supple. No lymphadenopathy. No carotid bruit CVS: regular rate and rhythm, systolic murmur PULM: CTA, no wheezes, rales or rhonchi, no acute respiratory distress ABD: Bowels sounds normal. Abdomen is soft. No distention. no tenderness to palpation. EXT: no edema bilaterally . No calf tenderness. NEURO: Moves all extremities. Motor and sensory are grossly intact SKIN: No rashes. No skin lesions. DATA: Complete Blood Count: Recent Labs 06/22/25 1605 06/23/25 0615 06/23/25 1640 06/24/25 0600 WBC 6.4 5.6 -- 6.8 RBC 2.58* 2.25* -- 2.86* HGB 7.7* 6.7* 8.7* 8.5* HCT 24.2* 21.0* 26.5* 26.3* MCV 93.8 93.3 -- 92.0 RDW 13.5 13.3 -- 13.9 PLT 121* 106* -- 130* Recent Labs 06/22/25 1605 06/23/25 0615 06/24/25 0600 NEUTROABS 4.99 4.08 5.36 LYMPHOPCT 12* 13* 9* LYMPHSABS 0.76* 0.73* 0.64* MONOPCT 9 12 10 BASOPCT 0 0 0 IMMGRAN 1* 1* 1* CMP: Lab Results Component Value Date GLUCOSE 106 (H) 06/24/2025 BUN 81 (H) 06/24/2025 CREATININE 4.0 (H) 06/24/2025 NA 137 06/24/2025 K 4.6 06/24/2025 CALCIUM 6.4 (L) 06/24/2025 CL 102 06/24/2025 CO2 16 (L) 06/24/2025 BILITOT 0.3 06/23/2025 ALKPHOS 325 (H) 06/23/2025 ALT 25 06/23/2025 AST 25 06/23/2025 UA: Lab Results Component Value Date COLORU Yellow 06/22/2025 WBCUA 2 TO 5 06/22/2025 RBCUA None 06/22/2025 LEUKOCYTESUR SMALL (A) 06/22/2025 GLUCOSEU TRACE (A) 06/22/2025 KETUA NEGATIVE 06/22/2025 PROTEINU 2+ (A) 06/22/2025 HGBUR 1+ (A) 06/22/2025 CASTUA NOT REPORTED 01/10/2017 BACTERIA TRACE (A) 06/22/2025 YEAST NOT REPORTED 01/10/2017 Lactic Acid: No results found for: LACTA High Sensitivity Troponin: Recent Labs 06/22/25 1605 06/22/25 1823 TROPHS 19* 17* Radiology/Imaging: CT FEMUR RIGHT WO CONTRAST Final Result 1. Probable skin blister on the anteromedial aspect of the mid right thigh measuring approximately 6.7 x 5.8 x 1.3 cm. Mild adjacent subcutaneous fat stranding. No deep soft tissue ulceration or soft tissue gas identified. 2. No acute osseous abnormality. ASSESSMENT: Principal Problem: Hypocalcemia Active Problems: Heart transplanted (HCC) Hypomagnesemia Diverticulosis of large intestine without hemorrhage Duodenitis Pancreatic insufficiency Generalized anxiety disorder History of heart transplant (HCC) Moderate malnutrition CKD (chronic kidney disease), stage IV (HCC) Hyperphosphatemia Resolved Problems: Severe malnutrition PLAN: I agree with the plan as outlined in the FOOD AND BEVERAGE LEAD/PA's note Disposition: Discharge plan is pending Please note that this chart was generated using voice recognition [employer] dictation software. Although every effort was made to ensure the accuracy of this automated district attorney, some errors in district attorney may have occurred. Gaetano Mazariegos MD 06/24/2025 7:43 PM Progress Note SUBJECTIVE: Patient seen for f/u of Hypocalcemia. She is feeling okay this morning. Transfused yesterday and hgb has improved. Guac +, seen by Adam would like patient to have outpt follow up with right thigh wound -concerned this is cancer since it has been so slow to heel. Added celiac reflux panel because of the frequency of diarrhea. Awaiting nephrology clearance for discharge home ROS: Constitutional: negative for fevers, and negative for chills. Respiratory: negative for shortness of breath, negative for cough, and negative for wheezing Cardiovascular: negative for chest pain, and negative for palpitations Gastrointestinal: negative for abdominal pain, negative for nausea,negative for vomiting, negative for diarrhea, and negative for constipation All other systems were reviewed with the patient and are negative unless otherwise stated in HPI OBJECTIVE: Vitals: Vitals: 06/24/25 1345 BP: (!) 148/78 Pulse: 71 Resp: 18 Temp: 97.4 ??F (36.3 ??C) SpO2: 100% Weight - Scale: 46.7 kg (103 lb) Height: 157.5 cm (5' 2 ) Weight Wt Readings from Last 3 Encounters: 06/24/25 46.7 kg (103 lb) 06/18/25 46.3 kg (102 lb) 05/30/25 48.9 kg (107 lb 11.2 oz) Body mass index is 18.84 kg/m??. 24HR INTAKE/OUTPUT: Intake/Output Summary (Last 24 hours) at 06/24/2025 1506 Last data filed at 06/24/2025 1341 Gross per 24 hour Intake 4819.7 ml Output -- Net 4819.7 ml Exam: GEN: Awake, alert and oriented x3. EYES: EOMI, pupils equal NECK: Supple. No lymphadenopathy. No carotid bruit CVS: regular rate and rhythm, no audible murmur PULM: CTA, no wheezes, rales or rhonchi, no acute respiratory distress ABD: Bowels sounds normal. Abdomen is soft. No distention. no tenderness to palpation. EXT: no edema bilaterally . No calf tenderness. NEURO: Moves all extremities. Motor and sensory are grossly intact SKIN: No rashes. Wound to right leg, ocvererd with bandage. Clean dry and intact. Diagnostic Data: Complete Blood Count: Recent Labs 06/22/25 1605 06/23/25 0615 06/23/25 1640 06/24/25 0600 WBC 6.4 5.6 -- 6.8 RBC 2.58* 2.25* -- 2.86* HGB 7.7* 6.7* 8.7* 8.5* HCT 24.2* 21.0* 26.5* 26.3* MCV 93.8 93.3 -- 92.0 MCH 29.8 29.8 -- 29.7 MCHC 31.8 31.9 -- 32.3 RDW 13.5 13.3 -- 13.9 PLT 121* 106* -- 130* MPV 11.2 11.3 -- 10.9 Last 3 Blood Glucose: Recent Labs 06/22/25 1403 06/22/25 1605 06/23/25 0615 06/24/25 0600 GLUCOSE 177* 134* 104* 106* Comprehensive Metabolic Profile: Recent Labs 06/22/25 1605 06/23/25 0615 06/24/25 0600 NA 135* 134* 137 K 5.3 4.8 4.6 CL 101 104 102 CO2 15* 14* 16* BUN 70* 79* 81* CREATININE 4.6* 4.4* 4.0* GLUCOSE 134* 104* 106* CALCIUM 5.8* 6.4* 6.4* BILITOT 0.3 0.3 -- ALKPHOS 386* 325* -- AST 33 25 -- ALT 32 25 -- Urinalysis: Lab Results Component Value Date/Time NITRU NEGATIVE 06/22/2025 02:03 PM COLORU Yellow 06/22/2025 02:03 PM PHUR 6.0 06/22/2025 02:03 PM PHUR 8.5 01/10/2017 03:36 PM WBCUA 2 TO 5 06/22/2025 02:03 PM RBCUA None 06/22/2025 02:03 PM MUCUS NOT REPORTED 01/10/2017 03:36 PM TRICHOMONAS NOT REPORTED 01/10/2017 03:36 PM YEAST NOT REPORTED 01/10/2017 03:36 PM BACTERIA TRACE 06/22/2025 02:03 PM LEUKOCYTESUR SMALL 06/22/2025 02:03 PM UROBILINOGEN Normal 06/22/2025 02:03 PM BILIRUBINUR NEGATIVE 06/22/2025 02:03 PM GLUCOSEU TRACE 06/22/2025 02:03 PM KETUA NEGATIVE 06/22/2025 02:03 PM AMORPHOUS NOT REPORTED 01/10/2017 03:36 PM HgBA1c: No results found for: LABA1C Lactic Acid: No results found for: LACTA Troponin: No results for input(s): TROPONINI in the last 72 hours. CRP: No results for input(s): CRP in the last 72 hours. Radiology/Imaging: CT FEMUR RIGHT WO CONTRAST Final Result 1. Probable skin blister on the anteromedial aspect of the mid right thigh measuring approximately 6.7 x 5.8 x 1.3 cm. Mild adjacent subcutaneous fat stranding. No deep soft tissue ulceration or soft tissue gas identified. 2. No acute osseous abnormality. ASSESSMENT / PLAN: MEDICAL DECISION MAKING: Primary Problem(s): Hypocalcemia Condition is an acute or chronic illness or injury that poses threat to life or bodily function Condition is stable Treatment plan: nephrology adjusting replacement Imaging: no further imaging studies ordered today Medications: Continue current meds Medication Monitoring / High Risk Medications: none Nephrology consulted - reviewed note, improving but want another day Monitor labs closely Obtain stool studies Nutrition status: at risk for malnutrition Clinical Data Associate consult initiated I/O Daily weight Monitor Daily intake Nutritional Supplements as tolerated MALNUTRITION ASSESSMENT AND PLAN The following was documented by the Dietitian: Malnutrition Assessment Context of Malnutrition: Acute Illness (06/23/25 08) Acute Illness - Energy Intake : Mild decrease in energy intake (06/23/25 08) Acute Illness - Weight Loss : Mild weight loss (06/23/25 08) Acute Illness - Body Fat Loss: Mild body fat loss (06/23/25 0848) Acute Illness - Body Fat Loss Locations: Fat Overlying Ribs (06/23/25 08) Acute Illness - Muscle Mass Loss: Mild muscle mass loss (06/23/25 08) Acute Illness - Muscle Mass Loss Location: Clavicles (pectoralis & deltoids) (06/23/25 08) Acute Illness - Fluid Accumulation : Unable to assess (06/23/25 08) Acute Illness - Microbiology Lab Manager Strength: Not Performed (06/23/25847) Acute Illness - Malnutrition Score: 2 (06/23/2548) Malnutrition Status: Moderate malnutrition (06/23/25 0848) I agree with the dietitian's malnutrition assessment. Medical Nutrition Therapy: continue current nutrition therapy Hospital Prophylaxis: DVT: SCD's Stress Ulcer: as ordered Disposition: Shared decision making: All test results, treatment options and disposition options were discussed with the patient today Social determinants of health that may impact management: none Code status: Full Code Disposition: Discharge plan is pending [facility] Advanced Care Planning documentation: [x] I have confirmed that the patient's Advance Care Plan is present, Code Status is documented, orsurrogate decision maker is listed in the patient's medical record [If yes , STOP HERE] [] The patient's Advance Care Plan is NOT present because: [] I confirmed today that the patient does not wish or was not able to name a surrogate decision maker or provide and advance care plan. [] Hospice care is currently being provided or has been provided within the calendar year. [] I did NOT confirm today the presence of an Advance Care Plan or surrogate decision maker documented within the patient's medical record. [DOES NOT SATISFY MIPS PERFORMANCE] DUSTY FLORES CNP , [facility] Hospitalist Medicine 06/24/2025, 3:06 PM * Callie Hooper RN - 06/23/2025 7:30 PM EDT Vitals and assessment were completed at this time. Class A Lineman walked patient through the medications that would be administered tonight and encouraged patient to ask questions about the medications and therapies. Patient denies questions. Patient's appetite is improved and she did eat a turkey sandwich on this shift. Imodium was given per patient request. Call light and bedside table remain within reach. Patient denies needs at this time. Care ongoing. * Belén Lozada RN - 06/23/2025 2:10 PM EDT Urine sent as ordered * Belén Lozada RN - 06/23/2025 1:49 PM EDT Blood transfusion complete, patient tolerated well. * Belén Lozada RN - 06/23/2025 12:[address] Spivey video conferencing with patient. * Belén Lozada RN - 06/23/2025 11:24 AM EDT Tranfusion initiated, patient tolerating well, RN underwriter mortgage loan at bedside monitoring for the initial 15 minutes of transfusion. * Belén Lozada RN - 06/23/2025 10:36 AM EDT C diff stool specimen sent as ordered. * Gaetano Mazariegos MD - 06/23/2025 10:21 AM EDT Physician Progress Note PATIENT: SYLVIA HERRERA CSN #: [id number] : 1945 ADMIT DATE: 06/22/2025 3:44 PM DISCH DATE: RESPONDING PROVIDER #: Gaetano Mazariegos MD QUERY TEXT: Severe malnutrition is documented in H&P. Please provide additional clinical indicators supportive of your documentation. Or please document if the diagnosis of Severe malnutrition has been ruled out after study. The clinical indicators include: 79yo with BMI 18.91 [address] note dated 06/23-Malnutrition Status: Moderate malnutrition (06/23/25 0848) Context: Acute Illness Findings of the 6 clinical characteristics of malnutrition: Energy Intake: Mild decrease in energy intake Weight Loss: Mild weight loss Body Fat Loss: Mild body fat loss Fat Overlying Ribs Muscle Mass Loss: Mild muscle mass loss Clavicles (pectoralis & deltoids) Fluid Accumulation: Unable to assess Microbiology Lab Manager Strength: Not Performed RD consult. Options provided: -- Severe malnutrition present as evidenced by, Please document evidence. -- Severe malnutrition was ruled out after study, patient has moderate malnutrition -- Other - I will add my own diagnosis -- Disagree - Not applicable / Not valid -- Disagree - Clinically unable to determine / Unknown -- Refer to Clinical Documentation Reviewer PROVIDER RESPONSE TEXT: Severe malnutrition is present as evidenced by clinical status Query created by: EDUARDO COLBY on 06/23/2025 10:05 AM QUERY TEXT: Pancreatitis is documented in the H&P. Please further specify the acuity of pancreatitis: The clinical indicators include: 79yo with pancreatic insufficiency (H&P) Documented, She is on Creon for pancreatitis Lipase 31(lab dated 06/22) Treatment: Zenpep(MAR) Options provided: -- Chronic recurrent pancreatitis -- Other - I will add my own diagnosis -- Disagree - Not applicable / Not valid -- Disagree - Clinically unable to determine / Unknown -- Refer to Clinical Documentation Reviewer PROVIDER RESPONSE TEXT: This patient has chronic recurrent pancreatitis Query created by: EDUARDO COLBY on 06/23/2025 10:14 AM Electronically signed by: Gaetano Mazariegos MD 06/23/2025 10:20 AM * Belén Lozada RN - 06/23/2025 9:00 AM EDT Patient awake, assessment and vitals initiated, call light within reach, whiteboard updated. * Emma Shelley PT - 06/23/2025 8:55 AM EDT Physical Therapy Facility/Department: [facility] Physical Therapy Initial Assessment Name: Sylvia Herrera : 1945 Date of Service: 06/23/2025 Discharge Recommendations: Continue to assess pending progress, Home with assist PRN Patient Diagnosis(es): The primary encounter diagnosis was Hypocalcemia. Diagnoses of Hypomagnesemia and Acute kidney injury superimposed on CKD were also pertinent to this visit. Past Medical History: has a past medical history of Acute renal failure (ARF), CAD (coronary arterydisease), CHF (congestive heart failure) (HCC), Diverticulosis of large intestine without hemorrhage, GERD (gastroesophageal reflux disease), History of blood transfusion, Pancreatitis, Pneumonia, Psy chiatric problem, and Thyroid disease. Past Surgical History: has a past surgical history that includes Cardiac surgery; Cholecystectomy; Colonoscopy; Dilatation, esophagus; vascular surgery; XR MIDLINE EQUAL OR GREATER THAN 5 YEARS (01/21/2025); and Heart transplant (2005). Assessment Assessment: PT evaluation completed. Patient agreeable to PT evaluation stating she has been up independently in her room without concerns. Patient is able to complete bed mobility and transfers independently and walk independently for 30 feet without assistive device and without gait abnormalities. Patient states no need for PT at this time. Patient does not require further PT at this time due to being at [facility]. Therapy Prognosis: Good Decision Making: Low Complexity Requires PT Follow-Up: No Activity Tolerance Activity Tolerance: Patient tolerated evaluation without incident Plan Safety Devices Type of Devices: Call light within reach, Left in chair Restrictions Restrictions/Precautions Restrictions/Precautions: General Precautions, Contact Precautions Activity Level: Other (Comment) (patient states she has been up independently in her room without issues) Subjective General Chart Reviewed: Yes Patient assessed for rehabilitation services?: Yes Family/Caregiver Present: No Referring Practitioner: Gaetano Mazariegos MD Referral Date : 06/22/25 Diagnosis: E83.51 Follows Commands: Within Functional Limits Social/Functional History Social/Functional History Lives With: Alone Type of Home: Senior housing apartment ([email or web address] [place]) Home Layout: One level Home Access: Elevator Bathroom Shower/Tub: Tub/Shower unit Bathroom Toilet: Standard Bathroom Equipment: Grab bars in shower, Grab bars around toilet, Shower chair Bathroom Accessibility: Accessible Has the patient had two or more falls in the past year or any fall with injury in the past year?: No Prior Level of Assist for ADLs: Independent Prior Level of Assist for Homemaking: Independent Homemaking Responsibilities: Yes Prior Level of Assist for Ambulation: Independent household ambulator, with or without device, Independent community ambulator, with or without device Prior Level of Assist for Transfers: Independent Active Automotive Brake Adjuster: Yes Vision/Hearing Vision Vision: Within Functional Limits Hearing Hearing: Within Functional Limits Cognition Orientation Overall Orientation Status: Within Normal Limits Objective Observation/Palpation Posture: Good Observation: patient with bandage to right leg wound Gross Assessment AROM: Within functional limits (bilateral lower extremity) Strength: Within functional limits Bed Mobility Training Bed Mobility Training: Yes Overall Level of Assistance: Independent Supine to Sit: Independent Sit to Supine: Independent Balance Sitting: Intact Standing: Intact Transfer Training Transfer Training: Yes Overall Level of Assistance: Independent Sit to Stand: Independent Stand to Sit: Independent Gait Training Right Side Weight Bearing: As tolerated Left Side Weight Bearing: As tolerated Gait Gait Training: Yes Left Side Weight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 Description 07/20/2025 11:40 AM EDT Office Visit [facility] Kidney and Hypertension [address] [place] [id number] Shola Spivey MD [address] [place] [id number] Acute kidney injury superimposed on chronic kidney disease, 2 weeks f/u with labs/ US Pending Results Name Type Priority Associated Diagnoses Date /Time Transfuse RBC Nursing Transfusion Routine Scheduled Orders Name Type Priority Associated Diagnoses Orde r Schedule PREPARE RBC (CROSSMATCH), 1 Units Blood Bank Routine Once for 1 Occurrences starting 06/23/2025 until 06/23/2025 Comprehensive Metabolic Panel Lab Routine Acute renal failure, unspecified acute renal failure type Expected: 07/03/2025, Expires: 06/26/2026 CBC with Auto Differential Lab Routine Anemia, unspecified type Expected: 07/03/2025, Expires: 06/26/2026 Scheduled Referrals Name Type Priority Associated Diagnoses Order Schedule External Referral To Dermatology Outpatient Referral Routine Skin lesion of right leg Ordered: 06/25/2025 documented as of this encounter Procedures Procedure Name Priority Date/Time Associated Diagnosis Comments EKG RHYTHM STRIP Routine 06/26/2025 6:00 AM EDT CBC WITH AUTO DIFFERENTIAL Routine 06/26/2025 5:55 AM EDT PHOSPHORUS Routine 06/26/2025 5:55 AM EDT MAGNESIUM Routine 06/26/2025 5:55 AM EDT HEPATIC FUNCTION PANEL Routine 5:55 AM EDT BASIC METABOLIC PANEL Routine 06/26/2025 5:55 AM EDT EKG RHYTHM STRIP Routine 06/26/2025 12:01 AM EDT CBC WITH AUTO DIFFERENTIAL Routine 06/25/2025 6:30 AM EDT BASIC METABOLIC PANEL Routine 06/25/2025 6:30 AM EDT EKG RHYTHM STRIP Routine 06/25/2025 6:00 AM EDT CALCIUM, IONIZED STAT 06/24/2025 10:45 AM EDT CELIAC REFLEX PANEL Routine 06/24/2025 8 :01 AM EDT ALBUMIN Routine 06/24/2025 8:01 AM EDT CBC WITH AUTO DIFFERENTIAL Routine 06/24/2025 6:00 AM EDT MAGNESIUM Routine 06/24/2025 6:00 AM EDT BASIC METABOLIC PANEL Routine 06/24/2025 6:00 AM EDT EKG RHYTHM STRIP Routine 06/24/2025 12:00 AM EDT HEMOGLOBIN AND HEMATOCRIT Routine 06/23/2025 4:40 PM EDT MAGNESIUM Routine 06/23/2025 4:40 PM EDT EKG RHYTHM STRIP Routine 06/23/2025 3:00 PM EDT SODIUM, URINE, RANDOM [employer] Label Print 06/23/2025 2:10 PM EDT CHLORIDE, URINE, RANDOM [employer] Label Print 06/23/2025 2:10 PM EDT GASTROINTESTINAL PANEL, MOLECULAR STAT 06/23/2025 10:40 AM EDT C DIFF TOXIN/ANTIGEN STAT 06/23/2025 10:40 AM EDT BLOOD OCCULT STOOL SCREEN #1 STAT 06/23/2025 10:40 AM EDT FECAL FAT, QUALITATIVE STAT 10:40 AM EDT GIARDIA ANTIGEN STAT 06/23/2025 10:40 AM EDT TYPE AND SCREEN Routine 06/23/2025 7:30 AM EDT EKG RHYTHM STRIP Routine 06/23/2025 7:00 AM EDT COMPREHENSIVE METABOLIC PANEL W/ REFLEX TO MG FOR LOW K Routine 06/23/2025 6:15 AM EDT CBC WITH AUTO DIFFERENTIAL Routine 06/23/2025 6:15 AM EDT IRON AND TIBC Routine 06/23/2025 6:15 AM EDT VITAMIN D 25 HYDROXY Routine 06/23/2025 6:15 AM EDT RETICULOCYTES Routine 06/23/2025 6:15 AM EDT PHOSPHORUS Routine 06/23/2025 6:15 AM EDT FERRITIN Routine 06/23/2025 6:15 AM EDT EKG RHYTHM STRIP Routine 06/23/2025 6:[address] FEMUR RIGHT WO CONTRAST STAT 06/22/2025 9:03 PM EDT EKG RHYTHM STRIP Routine 06/22/2025 8:00 PM EDT TSH REFLEX TO FT4 Routine 06/22/2025 6:2 3 PM EDT TROPONIN STAT 06/22/2025 6:23 PM EDT LIPASE STAT 06/22/2025 6:23 PM EDT AMYLASE STAT 06/22/2025 6:23 PM EDT CALCIUM, IONIZED STAT 06/22/2025 4:30 PM EDT CBC WITH AUTO DIFFERENTIAL STAT 06/22/2025 4:05 PM EDT TROPONIN STAT 06/22/2025 4:05 PM EDT PHOSPHORUS STAT 06/22/2025 4:05 PM EDT PTH, INTACT STAT 06/22/2025 4:05 PM EDT MAGNESIUM STAT 06/22/2025 4:05 PM EDT COMPREHENSIVE METABOLIC PANEL STAT 06/22/2025 4:05 PM EDT EKG 12-LEAD STAT 06/22/2025 3:53 PM EDT documented in this encounter Results * EKG Rhythm Strip (06/26/2025 6:00 AM EDT) 06/26/2025 6:00 AM EDT Narrative [facility] - 06/26/2025 6:33 AM EDT us Unknown Provider Result ECG ORDERABLES Final Re sult [facility] [address] [place] [address], [facility] [phone] * (ABNORMAL) Basic Metabolic Panel (06/26/2025 5:55 AM EDT) Sodium 138 136 - 145 mmol/L 06/26/2025 5:55 AM [facility] Potassium 4.5 3.7 - 5.3 mmol/L 06/26/2025 5:55 AM [facility] Chloride 104 98 - 107 mmol/L 06/26/2025 5:55 AM [facility] CO2 19(L) 20 - 31 mmol/L 06/26/2025 5:55 AM [facility] Anion Gap 15 9 - 16 mmol/L 06/26/2025 5:55 AM [facility] Glucose 91 74 - 99 mg/dL 06/26/2025 5:55 AM [facility] BUN 77(H) 8 - 23 mg/dL 06/26/2025 5:55 AM [facility] Creatinine 3.8(H) 0.50 - 0.90 mg/dL 06/26/2025 5:55 AM [facility] Est, Glom Filt Rate 11(L) >60 mL/min/1.7 3m2 06/26/2025 5:55 AM [facility] Comment: These results are [...] that affects renal tubular secretion. BUN/Creatinine Ratio 20 9 - 20 06/26/2025 5:55 AM [facility] Calcium 7.6(L) 8.6 - 10.4 mg/dL 06/26/2025 5:55 AM [facility] BLOOD SPECIMEN / Unknown 06/26/2025 5:55 AM EDT 06/26/2025 6:04 AM EDT us Shola Spivey MD CHEMISTRY ORDERABLES Final Resu lt [facility] [address] [phone] * (ABNORMAL) CBC auto differential (06/26/2025 5:55 AM EDT) WBC 6.9 3.5 - 11.3 k/uL 06/26/2025 5:55 AM EDT [facility] RBC 2.63(L) 3.95 - 5.11 m/uL 06/26/2025 5:55 AM T [facility] Hemoglobin 8.0(L) 11.9 - 15.1 g/dL 06/26/2025 5:55 AM [facility] Hematocrit 24.0(L) 36.3 - 47.1 % 06/26/2025 5:55 [facility] M[facility] 91.3 82.6 - 102.9 fL 06/26/2025 5:55 AM EDT [facility] MCH 30.4 25.2 - 33.5 pg 06/26/2025 5:55 AM [facility] MCHC 33.3 28.4 - 34.8 g/dL 06/26/2025 5:55 AM [facility] RDW 14.1 11.8 - 14.4 % 06/26/2025 5:55 AM [facility] Platelets 119(L) 138 - 453 k/uL 06/26/2025 5:55 [facility] MPV 10.7 8.1 - 13.5 fL 06/26/2025 5:55 AM [facility] NRBC Automated 0.0 0.0 per 100 WBC 06/26/2025 5:55 AM [facility] Neutrophils % 75(H) 36 - 65 % 06/26/2025 5:55 AM [facility] Lymphocytes % 11(L) 24 - 43 % 06/26/2025 5:55 AM [facility] Monocytes % 12 3 - 12 % 06/26/2025 5:55 AM EDT [facility] Eosinophils % 1 1 - 4 % 06/26/2025 5:55 AM [facility] Basophils % 0 0 - 2 % 06/26/2025 5:55 AM [facility] Immature Granulocytes % 1(H) 0 % 06/26/2025 5:55 AM EDT [facility] Neutrophils Absolute 5.09 1.50 - 8.10 k/uL 06/26/2025 5:55 AM [facility] Lymphocytes Absolute 0.77(L) 1.10 - 3.70 k/uL 06/26/2025 5:55 AM [facility] Monocytes Absolute 0.85 0.10 - 1.20 k/uL 06/26/2025 5:55 AM EDT [facility] Eosinophils Absolute 0.09 0.00 - 0.44 k/uL 06/26/2025 5:55 AM [facility] Basophils Absolute <0.03 0.00 - 0.20 k/uL 06/26/2025 5:55 AM [facility] Immature Granulocytes Absolute 0.05 0.00 - 0.30 k/uL 06/26/2025 5:55 AM [facility] 06/26/2025 5:55 AM EDT 06/26/2025 6:04 AM EDT us Gaetano Mazariegos MD HEMATOLOGY ORDERABLES Final Resu lt [facility] [address] [phone] * (ABNORMAL) Hepatic Function Panel (06/26/2025 5:55 AM EDT) Albumin 3.4(L) 3.5 - 5.2 g/dL 06/26/2025 5:55 AM EDT [facility] Alkaline Phosphatase 328(H) 35 - 104 U/L 06/26/2025 5:55 AM EDT [facility] ALT 27 10 - 35 U/L 06/26/2025 5:55 AM EDT [facility] AST 31 10 - 35 U/L 06/26/2025 5:55 AM EDT [facility] Total Bilirubin 0.3 0.00 - 1.20 mg/dL 06/26/2025 5:55 AM EDT [facility] Bilirubin, Direct <0.2 0.00 - 0.30 mg/dL 06/26/2025 5:55 AM EDT [facility] Bilirubin, Indirect Can not be calculated 0.0 - 1.0 mg/dL 06/26/2025 5:55 AM EDT [facility] Total Protein 5.6(L) 6.6 - 8.7 g/dL 06/26/2025 5:55 AM EDT [facility] Albumin/Globuli n Ratio 1.5 1.0 - 2.5 06/26/2025 5:55 AM EDT [facility] Blood BLOOD SPECIMEN / Unknown 06/26/2025 5:55 AM EDT 06/26/2025 6:04 AM EDT us Saadia Carrillo APRN - DECORATING INSTRUCTOR CHEMISTRY ORDERABLES Final Result Performing Organization Address City/[facility]/ZIP Co de Phone Number [facility] [address] [place] [address] * Magnesium (06/26/2025 5:55 AM EDT) Magnesium 1.7 1.6 - 2.4 mg/dL 06/26/2025 5:55 AM EDT [facility] BLOOD SPECIMEN / Unknown 06/26/2025 5:55 AM EDT 06/26/2025 6:04 AM EDT us Shola Spivey MD CHEMISTRY ORDERABLES Final Resu lt [facility] [address] [place] [address] * Phosphorus (06/26/2025 5:55 AM EDT) Phosphorus 3.2 2.5 - 4.5 mg/dL 06/26/2025 5:55 AM EDT [facility] BLOOD SPECIMEN / Unknown 06/26/2025 5:55 AM EDT 06/26/2025 6:04 AM EDT us Shola Spivey MD CHEMISTRY ORDERABLES Final Resu lt Performing Organization Address City/[facility]/ZIP Co de Phone Number [facility] [address] [place] [address] * EKG Rhythm Strip (06/26/2025 12:01 AM EDT) 06/26/2025 12:0 1 AM EDT Narrative [facility] - 06/26/2025 3:41 AM EDT us Unknown Provider Result ECG ORDERABLES Final Re sult Performing Organization Address [facility]/ZIP Co de Phone Number [facility] [address] [place] [address] * (ABNORMAL) Basic Metabolic Panel (06/25/2025 6:30 AM EDT) Sodium 137 136 - 145 mmol/L 06/25/2025 6:30 AM EDT [facility] Potassium 4.4 3.7 - 5.3 mmol/L 06/25/2025 6:30 AM EDT [facility] Chloride 102 98 - 107 mmol/L 06/25/2025 6:30 AM EDT [facility] CO2 19(L) 20 - 31 mmol/L 06/25/2025 6:30 AM EDT [facility] Anion Gap 16 9 - 16 mmol/L 06/25/2025 6:30 AM EDT [facility] Glucose 87 74 - 99 mg/dL 06/25/2025 6:30 AM EDT [facility] BUN 79(H) 8 - 23 mg/dL 06/25/2025 6:30 AM EDT [facility] Creatinine 3.7(H) 0.50 - 0.90 mg/dL 06/25/2025 6:30 AM EDT [facility] Est, Glom Filt Rate 12(L) >60 mL/min/1.7 3m2 06/25/2025 6:30 AM EDT [facility] Comment: These results are not [...] that affects renal tubular secretion. BUN/Creatinine Ratio 21(H) 9 - 20 06/25/2025 6:30 AM EDT [facility] Calcium 7.1(L) 8.6 - 10.4 mg/dL 06/25/2025 6:30 AM T [facility] BLOOD SPECIMEN / Unknown 06/25/2025 6:30 AM EDT 06/25/2025 6:38 AM EDT us Shola Spivey MD CHEMISTRY ORDERABLES Final Resu lt [facility] [address] [phone] * (ABNORMAL) CBC auto differential (06/25/2025 6:30 AM EDT) WBC 5.9 3.5 - 11.3 k/uL 06/25/2025 6:30 AM EDT [facility] RBC 2.68(L) 3.95 - 5.11 m/uL 06/25/2025 6:30 AM EDT [facility] Hemoglobin 8.0(L) 11.9 - 15.1 g/dL 06/25/2025 6:30 AM [facility] Hematocrit 24.4(L) 36.3 - 47.1 % 06/25/2025 6:30 AM [facility] MCV 91.0 82.6 - 102.9 fL 06/25/2025 6:30 AM [facility] MCH 29.9 25.2 - 33.5 pg 06/25/2025 6:30 AM [facility] MCHC 32.8 28.4 - 34.8 g/dL 06/25/2025 6:30 AM [facility] RDW 13.8 11.8 - 14.4 % 06/25/2025 6:30 AM [facility] Platelets 119(L) 138 - 453 k/uL 06/25/2025 6:30 AM [facility] MPV 11.0 8.1 - 13.5 fL 06/25/2025 6:30 AM [facility] NRBC Automated 0.0 0.0 per 100 WBC 06/25/2025 6:30 AM [facility] Neutrophils % 72(H) 36 - 65 % 06/25/2025 6:30 AM [facility] Lymphocytes % 12(L) 24 - 43 % 06/25/2025 6:30 AM [facility] Monocytes % 13(H) 3 - 12 % 06/25/2025 6:30 AM [facility] Eosinophils % 2 1 - 4 % 06/25/2025 6:30 AM [facility] Basophils % 0 0 - 2 % 06/25/2025 6:30 AM [facility] Immature Granulocytes % 1(H) 0 % 06/25/2025 6:30 AM [facility] Neutrophils Absolute 4.30 1.50 - 8.10 k/uL 06/25/2025 6:30 AM [facility] Lymphocytes Absolute 0.69(L) 1.10 - 3.70 k/uL 06/25/2025 6:30 AM EDT [facility] Monocytes Absolute 0.76 0.10 - 1.20 k/uL 06/25/2025 6:30 AM EDT [facility] Eosinophils Absolute 0.13 0.00 - 0.44 k/uL 06/25/2025 6:30 AM EDT [facility] Basophils Absolute <0.03 0.00 - 0.20 k/uL 06/25/2025 6:30 AM EDT [facility] Immature Granulocytes Absolute 0.04 0.00 - 0.30 k/uL 06/25/2025 6:30 AM EDT [facility] 06/25/2025 6:30 AM EDT 06/25/2025 6:38 AM EDT us Gaetano Mazariegos MD HEMATOLOGY ORDERABLES Final Resu lt [facility] [address] [phone] * EKG Rhythm Strip (06/25/2025 6:00 AM EDT) 06/25/2025 6:00 AM EDT Narrative [facility] - 06/25/2025 7:10 AM EDT us Unknown Provider Result ECG ORDERABLES Final Re sult [facility] [address] [phone] * (ABNORMAL) Calcium, Ionized (06/24/2025 10:45 AM EDT) Calcium, Ionized 0.88(L) 1.13 - 1.33 mmol/L 06/24/2025 10:45 AM EDT [facility] [employer] BLOOD SPECIMEN / Unknown 06/24/2025 10:45 AM EDT 06/24/2025 3:06 PM EDT us Shola Spivey MD CHEMISTRY ORDERABLES Final Resu lt [facility] [address] [phone] [facility] [address] [place] [address] * Albumin (06/24/2025 8:01 AM EDT) Albumin 3.6 3.5 - 5.2 g/dL 06/24/2025 8:01 AM EDT [facility] Blood BLOOD SPECIMEN / Unknown 06/24/2025 8:01 AM EDT 06/24/2025 8:15 AM EDT us Darnell Apple MD CHEMISTRY ORDERABLES Final Result Performing Organization Address City/[facility]/ZIP Co de Phone Number [facility] [address] [phone] * Celiac Reflex Panel (06/24/2025 8:01 AM EDT) Gliadin Deaminidated Peptide AB IGA 0.5 <7.0 U/mL 06/24/2025 8:01 AM EDT [facility] Comment: CELIAC INTERPRETATION <7.0 Negative 7.0-10.0 Equivocal >10.0 Positive units: U/mL Gliadin Deaminidated Peptide AB IGG <0.4 <7.0 U/mL 06/24/2025 8:01 AM EDT [facility] Comment: CELIAC INTERPRETATION <7.0 Negative 7.0-10.0 Equivocal >10.0 Positive units: U/mL IgA 266 70 - 400 mg/dL 06/24/2025 8:01 AM EDT [facility] Tissue Transglutaminase IgA 0.3 <7.0 U/mL 06/24/2025 8:01 AM EDT [facility] Comment: CELIAC INTERPRETATION <7.0 Negative 7.0-10.0 Equivocal >10.0 Positive units: U/mL Tissue Transglutaminase (tTG) Antibody (IgG) <0.6 <7.0 U/mL 06/24/2025 8:01 AM T [facility] Comment: CELIAC INTERPRETATION <7.0 Negative 7.0-10.0 Equivocal >10.0 Positive units: U/mL BLOOD SPECIMEN / Unknown 06/24/2025 8:01 AM EDT 06/24/2025 8:08 AM EDT Saadia Carrillo PHOTO PRINTER - DECORATING INSTRUCTOR CHEMISTRY ORDERABLES Final Result [facility] [address] [place] [address], [facility] [phone] [place] [id number] [place] [address], [facility] [phone] * (ABNORMAL) Basic Metabolic Panel (06/24/2025 6:00 AM EDT) Sodium 137 136 - 145 mmol/L 06/24/2025 6:00 AM [facility] Potassium 4.6 3.7 - 5.3 mmol/L 06/24/2025 6:00 AM [facility] Chloride 102 98 - 107 mmol/L 06/24/2025 6:00 AM [facility] CO2 16(L) 20 - 31 mmol/L 06/24/2025 6:00 AM [facility] Anion Gap 19(H) 9 - 16 mmol/L 06/24/2025 6:00 AM [facility] Glucose 106(H) 74 - 99 mg/dL 06/24/2025 6:00 AM [facility] BUN 81(H) 8 - 23 mg/dL 06/24/2025 6:00 AM [facility] Creatinine 4.0(H) 0.50 - 0.90 mg/dL 06/24/2025 6:00 AM [facility] Est, Glom Filt Rate 11(L) >60 mL/min/1.7 3m2 06/24/2025 6:00 AM [facility] Comment: These results are [...] that affects renal tubular secretion. BUN/Creatinine Ratio 20 9 - 20 06/24/2025 6:00 AM T [facility] Calcium 6.4(L) 8.6 - 10.4 mg/dL 06/24/2025 6:00 AM [facility] BLOOD SPECIMEN / Unknown 06/24/2025 6:00 AM EDT 06/24/2025 6:19 AM EDT us Shola Spivey MD CHEMISTRY ORDERABLES Final Resu lt [facility] [address] [phone] * (ABNORMAL) CBC auto differential (06/24/2025 6:00 AM EDT) WBC 6.8 3.5 - 11.3 k/uL 06/24/2025 6:00 AM [facility] RBC 2.86(L) 3.95 - 5.11 m/uL 06/24/2025 6:00 AM [facility] Hemoglobin 8.5(L) 11.9 - 15.1 g/dL 06/24/2025 6:00 AM [facility] Hematocrit 26.3(L) 36.3 - 47.1 % 06/24/2025 6:00 AM [facility] MCV 92.0 82.6 - 102.9 fL 06/24/2025 6:00 AM [facility] MCH 29.7 25.2 - 33.5 pg 06/24/2025 6:00 AM [facility] MCHC 32.3 28.4 - 34.8 g/dL 06/24/2025 6:00 AM [facility] RDW 13.9 11.8 - 14.4 % 06/24/2025 6:00 AM [facility] Platelets 130(L) 138 - 453 k/uL 06/24/2025 6:00 AM [facility] MPV 10.9 8.1 - 13.5 fL 06/24/2025 6:00 AM [facility] NRBC Automated 0.0 0.0 per 100 WBC 06/24/2025 6:00 AM [facility] Neutrophils % 79(H) 36 - 65 % 06/24/2025 6:00 AM [facility] Lymphocytes % 9(L) 24 - 43 % 06/24/2025 6:00 AM [facility] Monocytes % 10 3 - 12 % 06/24/2025 6:00 AM [facility] Eosinophils % 1 1 - 4 % 06/24/2025 6:00 AM [facility] Basophils % 0 0 - 2 % 06/24/2025 6:00 AM [facility] Immature Granulocytes % 1(H) 0 % 06/24/2025 6:00 AM [facility] Neutrophils Absolute 5.36 1.50 - 8.10 k/uL 06/24/2025 6:00 AM [facility] Lymphocytes Absolute 0.64(L) 1.10 - 3.70 k/uL 06/24/2025 6:00 AM [facility] Monocytes Absolute 0.70 0.10 - 1.20 k/uL 06/24/2025 6:00 AM [facility] Eosinophils Absolute 0.09 0.00 - 0.44 k/uL 06/24/2025 6:00 AM [facility] Basophils Absolute <0.03 0.00 - 0.20 k/uL 06/24/2025 6:00 AM [facility] Immature Granulocytes Absolute 0.04 0.00 - 0.30 k/uL 06/24/2025 6:00 AM EDT [facility] 06/24/2025 6:00 AM EDT 06/24/2025 6:19 AM EDT us Gaetano Mazariegos MD HEMATOLOGY ORDERABLES Final Resu lt Performing Organization Address [facility] Co de Phone Number [facility] [address] [place] [address] * (ABNORMAL) Magnesium (06/24/2025 6:00 AM EDT) Magnesium 1.5(L) 1.6 - 2.4 mg/dL 06/24/2025 6:00 AM EDT [facility] BLOOD SPECIMEN / Unknown 06/24/2025 6:00 AM EDT 06/24/2025 6:19 AM EDT us Shola Spivey MD CHEMISTRY ORDERABLES Final Resu lt Performing Organization Address [facility] Co de Phone Number [facility] [address] [place] [address] * EKG Rhythm Strip (06/24/2025 12:00 AM EDT) 06/24/2025 Narrative [facility] - 06/25/2025 12:59 AM EDT us Unknown Provider Result ECG ORDERABLES Final Re sult Performing Organization Address [facility] Co de Phone Number [facility] [address] [place] [address] * (ABNORMAL) Hemoglobin and Hematocrit (06/23/2025 4:40 PM EDT) Hemoglobin 8.7(L) 11.9 - 15.1 g/dL 06/23/2025 4:40 PM EDT [facility] Hematocrit 26.5(L) 36.3 - 47.1 % 06/23/2025 4:40 PM EDT [facility] Blood BLOOD SPECIMEN / Unknown 06/23/2025 4:40 PM EDT 06/23/2025 4:44 PM EDT us Shola Spivey MD HEMATOLOGY ORDERABLES Final Res ult Performing Organization Address [facility] de Phone Number [facility] [address] [phone] * Magnesium (06/23/2025 4:40 PM EDT) Magnesium 1.6 1.6 - 2.4 mg/dL 06/23/2025 4:40 PM EDT [facility] Blood BLOOD SPECIMEN / Unknown 06/23/2025 4:40 PM EDT 06/23/2025 4:45 PM EDT us Shola Spivey MD CHEMISTRY ORDERABLES Final Resu lt Performing Organization Address [facility] de Phone Number [facility] [address] [place] [address] * EKG Rhythm Strip (06/23/2025 3:00 PM EDT) 06/23/2025 3:00 PM EDT Narrative [facility] - 06/24/2025 3:49 PM EDT us Unknown Provider Result ECG ORDERABLES Final Re sult Performing Organization Address [facility] de Phone Number [facility] [address] [place] [address] * Chloride, Random Urine (06/23/2025 2:10 PM EDT) Chloride, Ur 79 mmol/L 06/23/2025 2:10 PM EDT [facility] Comment:No normal range esta blished. Urine (Urine) 06/23/2025 2:1 0 PM EDT 06/23/2025 2:18 PM EDT Shola Spivey MD URINE ORDERABLES Final Result Performing Organization Address [facility]/ZIP Co de Phone Number [facility] [address] [place] [address] * Sodium, urine, random (06/23/2025 2:10 PM EDT) Sodium, Ur 83 mmol/L 06/23/2025 2:10 PM EDT [facility] Comment:No normal range esta blished. Urine (Urine) 06/23/2025 2:1 0 PM EDT 06/23/2025 2:18 PM EDT Shola Spivey MD URINE ORDERABLES Final Result Performing Organization Address [facility] Co de Phone Number [facility] [address] [place] [address] * Giardia antigen (06/23/2025 10:40 AM EDT) Specimen Description .FECES 06/23/2025 10:40 AM EDT [facility] Source .FECES 06/23/2025 10:40 AM EDT [facility] Giardia Ag, Stl NEGATIVE NEGATIVE 10:40 AM EDT [facility] Comment:Giardia Antigen Assa y Stool STOOL SPECIMEN / Unknown 06/23/2025 10:40 AM EDT 06/23/2025 11:11 AM EDT Gaetano Mazariegos MD MICROBIOLOGY - GENERAL ORDERABLE S Final Result Performing Organization Address [facility]/ZIP Co de Phone Number [facility] [address] [place] [address], [facility] [phone] [facility] [employer] [address] [place] [address], [facility] [phone] * Clostridium Difficile Toxin/Antigen (06/23/2025 10:40 AM EDT) Specimen Description .FECES 06/23/2025 10:40 AM EDT [facility] C DIFF AG + TOXIN NEGATIVE NEGATIVE 06/23/2025 10:40 AM EDT [facility] Comment:No C. difficile anti gen and Toxin Detected. Stool STOOL SPECIMEN / Unknown 06/23/2025 10:40 AM EDT 06/23/2025 11:11 AM EDT Gaetano Mazariegos MD MICROBIOLOGY - GENERAL ORDERABLE S Final Result Performing Organization Address [facility]/ZIP Co de Phone Number [facility] [address] [phone] * (ABNORMAL) Fecal fat, qualitative (06/23/2025 10:40 AM EDT) Fecal Neutral Fat Normal Normal 06/23/2025 10:40 AM EDT [facility] Fat Qualitative Split Stool Increased( A) Normal 06/23/2025 10:40 AM EDT [facility] Comment: (NOTE) INTERPRETIVE INFORMATION: Fecal Fat Qualitative Neutral fats include the monoglycerides, diglycerides, and triglycerides while split fats are the free fatty acids that are liberated from them. Impaired synthesis or secretion of pancreatic enzymes or bile may cause an increase in neutral fats while an increase in split fats suggests impaired absorption of nutrients. Performed By: [facility] [address] [place] [address] Advertising Sales Manager: Jc Fine MD, PhD CLIA Number: [id number] Stool STOOL SPECIMEN / Unknown 06/23/2025 10:40 AM EDT 06/23/2025 11:10 AM EDT Gaetano Mazariegos MD BODY FLUIDS AND STOOLS ORDERABLE S Final Result Performing Organization Address City/[facility]/ZIP Co de Phone Number [facility] [address] [phone] [facility] [address] [place] [address] * Gastrointestinal Panel, Molecular (06/23/2025 10:40 AM EDT) Pathologist [facility] Specimen Description .FECES 10:40 AM EDT [facility] Campylobacter PCR NEGATIVE: No Campylobacter spp. (jejuni or coli) DNA Detected NEGATIVE: No Campylobacter spp. (jejuni or coli) DNA Detecte 10:40 AM EDT [facility] Salmonella PCR NEGATIVE: No Salmonella spp. DNA Detected NEGATIVE: No Salmonella spp. DNA Detected 10:40 AM EDT [facility] Shigatoxin Gene PCR NEGATIVE: No Shiga toxin-producin g gene(s) Detected NEGATIVE: No Shiga toxin-producin g gene(s) Detected 10:40 AM EDT [facility] Shigella Sp PCR NEGATIVE: No Shigella spp. / EIEC DNA Detected NEGATIVE: No Shigella spp. / EIEC DNA Detected 10:40 AM T [facility] Plesiomonas Shigelloides PCR NEGATIVE: No Plesionomas shigelloides DNA Detected NEGATIVE: No Plesionomas shigelloides DNA Detected 10:40 AM [employer] [facility] Vibrio PCR NEGATIVE: No Vibrio (V. vulnificus, V, parahaemolytic us and V. cholerae) DNA Detected NEGATIVE: No Vibrio (V. vulnificus, V, parahaemolytic us and 10:40 AM T [facility] E Coli Enterotoxigenic PCR NEGATIVE: No Enterotoxigeni c E. coli (ETEC) Heat-labile and heat-stable (LT/ST) DNA Detected NEGATIVE: No Enterotoxigeni c E. coli (ETEC) Heat-labile and 10:40 AM [employer] [facility] Yersinia Enterocolitica PCR NEGATIVE: No Yersinia enterocolitica DNA Detected NEGATIVE: No Yersinia enterocolitica DNA Detected 5 10:40 AM T [facility] STOOL SPECIMEN / Unknown 06/23/2025 10:40 AM EDT 06/23/2025 11:11 AM EDT us Gaetano Mazariegos MD MICROBIOLOGY - GENERAL ORDERABLE S Final Result [facility] [address] [phone] [facility] [address] [place] [address] * (ABNORMAL) Blood Occult Stool Screen #1 (06/23/2025 10:40 AM EDT) [facility] Occult Blood, Stool #1 POSITIVE(A ) NEGATIVE 06/23/2025 10:40 AM EDT [facility] Date, Stool #1 7 06/23/2025 10:40 AM EDT [facility] Comment: 23 25 Time, Stool #1 1,040 06/23/2025 10:40 AM EDT [facility] STOOL SPECIMEN / Unknown 06/23/2025 10:40 AM EDT 06/23/2025 11:11 AM EDT Gaetano Mazariegos MD BODY FLUIDS AND STOOLS ORDERABLE S Final Result [facility] [address] [phone] * TYPE AND SCREEN (06/23/2025 7:30 AM EDT) [facility] Blood Bank Sample Expiration 06/26/2025,2359 06/23/2025 8:33 AM EDT [facility] Arm Band Number [id number] 8:33 AM EDT [facility] ABO/Rh O NEGATIVE 06/23/2025 8:33 AM EDT [facility] Antibody Screen NEGATIVE 8:33 AM EDT [facility] Unit Number [id number] 06/23/2025 8:34 AM EDT [facility] Component Leukocyte Reduced Red Cell 06/23/2025 8:34 AM EDT [facility] Unit Divison 00 06/23/2025 8:34 AM EDT [facility] Dispense Status Blood Bank TRANSFUSED 06/24/2025 12:19 AM EDT [facility] Unit Issue Date/Time [id number] 06/24/2025 12:19 AM EDT [facility] Product Code Blood Bank [id number] 06/24/2025 12:19 AM EDT [facility] Blood Bank Unit Type and Rh O NEG 06/24/2025 12:19 AM EDT [facility] Blood Bank ISBT Product Blood Type [id number] 06/24/2025 12:19 AM EDT [facility] Blood Bank Blood Product Expiration Date [id number] 06/24/2025 12:19 AM EDT [facility] Transfusion Status OK TO TRANSFUSE 06/23/2025 8:34 AM EDT [facility] Crossmatch Result COMPATIBLE 06/23/2025 8:34 AM EDT [facility] Blood BLOOD SPECIMEN / Unknown 06/23/2025 7:30 AM EDT 06/23/2025 7:43 AM EDT us Saadia Carrillo PHOTO PRINTER - DECORATING INSTRUCTOR BLOOD BANK TEST ORDE RABLES Final Result Performing Organization Address [facility]/ZIP Co de Phone Number [facility] [address] [place] [address] * EKG Rhythm Strip (06/23/2025 7:00 AM EDT) 06/23/2025 7:00 AM EDT Narrative [facility] - 06/23/2025 12:07 PM EDT us Unknown Provider Result ECG ORDERABLES Final Re sult Performing Organization Address [facility]/ZIP Co de Phone Number [facility] [address] [place] [address] * (ABNORMAL) Reticulocytes (06/23/2025 6:15 AM EDT) Retic Ct Pct 1.3 0.5 - 1.9 % 06/23/2025 6:15 AM EDT [facility] Absolute Retic # 0.029(L) 0.030 - 0.080 M/uL 06/23/2025 6:15 AM EDT [facility] Immature Retic Fract 10.9 2.7 - 18.3 % 06/23/2025 6:15 AM EDT [facility] Retic Hemoglobin 32.6 28.2 - 35.7 pg 06/23/2025 6:15 AM EDT [facility] Blood BLOOD SPECIMEN / Unknown 06/23/2025 6:15 AM EDT 06/23/2025 7:20 AM EDT Saadia Carrillo APRN - DECORATING INSTRUCTOR HEMATOLOGY ORDERABLE S Final Result Performing Organization Address [facility]/ZIP Co de Phone Number [facility] [address] [place] [address], [facility] [phone] * (ABNORMAL) Iron and TIBC (06/23/2025 6:15 AM EDT) Iron 70 37 - 145 ug/dL 06/23/2025 6:15 AM EDT [facility] TIBC 199(L) 250 - 450 ug/dL 06/23/2025 6:15 AM EDT [facility] Iron % Saturation 35 20 - 55 % 06/23/2025 6:15 AM EDT [facility] UIBC 129 112 - 347 ug/dL 06/23/2025 6:15 AM EDT [facility] Blood BLOOD SPECIMEN / Unknown 06/23/2025 6:15 AM EDT 06/23/2025 7:20 AM EDT Saadia Carrillo APRN - DECORATING INSTRUCTOR CHEMISTRY ORDERABLES Final Result Performing Organization Address City/[facility]/ZIP Co de Phone Number [facility] [address] [place] [address], [facility] [phone] [facility] [address] [place] [address], [facility] [phone] * Ferritin (06/23/2025 6:15 AM EDT) Ferritin 365 ng/mL 06/23/2025 6:15 AM EDT [facility] Comment:No reference range e stablished for this age/gender. Blood BLOOD SPECIMEN / Unknown 06/23/2025 6:15 AM EDT 06/23/2025 7:20 AM EDT Saadia Giang CNP CHEMISTRY ORDERABLES Final Result Performing Organization Address [facility] Co de Phone Number [facility] [address] [phone] [facility] [address] [place] [address], [facility] [phone] * (ABNORMAL) Vitamin D 25 Hydroxy (06/23/2025 6:15 AM EDT) Vit D, 25-Hydroxy 23.1(L) 30.0 - 100.0 ng/mL 06/23/2025 6:15 AM EDT [facility] Comment: Reference Range: Vitamin D status Range Deficiency <20 ng/mL Mild Deficiency 20-30 ng/mL Sufficiency 30-100 ng/mL Toxicity >100 ng/mL BLOOD SPECIMEN / Unknown 06/23/2025 6:15 AM EDT 06/23/2025 6:29 AM EDT Shola Spivey MD CHEMISTRY ORDERABLES Final Resu lt Performing Organization Address City/[facility]/ZIP Co de Phone Number [facility] [address] [phone] [facility] [address] [place] [address], [facility] [phone] * (ABNORMAL) Phosphorus (06/23/2025 6:15 AM EDT) Phosphorus 4.9(H) 2.5 - 4.5 mg/dL 06/23/2025 6:15 AM EDT [facility] BLOOD SPECIMEN / Unknown 06/23/2025 6:15 AM EDT 06/23/2025 6:29 AM EDT Shola Spivey MD CHEMISTRY ORDERABLES Final Resu lt [facility] [address] [phone] * (ABNORMAL) Comprehensive Metabolic Panel w/ Reflex to MG (06/23/2025 6:15 AM EDT) Sodium 134(L) 136 - 145 mmol/L 06/23/2025 6:15 AM T [facility] Potassium 4.8 3.7 - 5.3 mmol/L 06/23/2025 6:15 AM [facility] Chloride 104 98 - 107 mmol/L 06/23/2025 6:15 AM [facility] CO2 14(L) 20 - 31 mmol/L 06/23/2025 6:15 AM [facility] Anion Gap 16 9 - 16 mmol/L 06/23/2025 6:15 AM [facility] Glucose 104(H) 74 - 99 mg/dL 06/23/2025 6:15 AM [facility] BUN 79(H) 8 - 23 mg/dL 06/23/2025 6:15 AM [facility] Creatinine 4.4(H) 0.50 - 0.90 mg/dL 06/23/2025 6:15 AM [facility] Est, Glom Filt Rate 10(L) >60 mL/min/1.7 3m2 06/23/2025 6:15 AM [facility] Comment: These results are [...] that affects renal tubular secretion. BUN/Creatinine Ratio 18 9 - 20 06/23/2025 6:15 AM EDT [facility] Calcium 6.4(L) 8.6 - 10.4 mg/dL 06/23/2025 6:15 AM T [facility] Total Protein 5.4(L) 6.6 - 8.7 g/dL 06/23/2025 6:15 AM T [facility] Albumin 3.4(L) 3.5 - 5.2 g/dL 06/23/2025 6:15 AM EDT [facility] Albumin/Globulin Ratio 1.6 1.0 - 2.5 06/23/2025 6:15 AM T [facility] Total Bilirubin 0.3 0.00 - 1.20 mg/dL 06/23/2025 6:15 AM [facility] Alkaline Phosphatase 325(H) 35 - 104 U/L 06/23/2025 6:15 AM T [facility] ALT 25 10 - 35 U/L 06/23/2025 6:15 AM T [facility] AST 25 10 - 35 U/L 06/23/2025 6:15 AM [facility] BLOOD SPECIMEN / Unknown 06/23/2025 6:15 AM EDT 06/23/2025 6:29 AM EDT us Gaetano Mazariegos MD CHEMISTRY ORDERABLES Final Resul t [facility] [address] [place] [id number] [phone] * (ABNORMAL) CBC auto differential (06/23/2025 6:15 AM EDT) WBC 5.6 3.5 - 11.3 k/uL 06/23/2025 6:15 AM EDT [facility] RBC 2.25(L) 3.95 - 5.11 m/uL 06/23/2025 6:15 AM EDT [facility] Hemoglobin 6.7(LL) 11.9 - 15.1 g/dL 06/23/2025 6:15 AM [facility] Hematocrit 21.0(L) 36.3 - 47.1 % 06/23/2025 6:15 AM [facility] MCV 93.3 82.6 - 102.9 fL 06/23/2025 6:15 AM [facility] MCH 29.8 25.2 - 33.5 pg 06/23/2025 6:15 AM [facility] MCHC 31.9 28.4 - 34.8 g/dL 06/23/2025 6:15 AM [facility] RDW 13.3 11.8 - 14.4 % 06/23/2025 6:15 AM [facility] Platelets 106(L) 138 - 453 k/uL 06/23/2025 6:15 AM [facility] MPV 11.3 8.1 - 13.5 fL 06/23/2025 6:15 AM [facility] NRBC Automated 0.0 0.0 per 100 WBC 06/23/2025 6:15 AM [facility] Neutrophils % 73(H) 36 - 65 % 06/23/2025 6:15 AM [facility] Lymphocytes % 13(L) 24 - 43 % 06/23/2025 6:15 AM [facility] Monocytes % 12 3 - 12 % 06/23/2025 6:15 AM [facility] Eosinophils % 1 1 - 4 % 06/23/2025 6:15 AM [facility] Immature Granulocytes % 1(H) 0 % 06/23/2025 6:15 AM [facility] Basophils % 0 0 - 2 % 06/23/2025 6:15 AM [facility] Neutrophils Absolute 4.08 1.50 - 8.10 k/uL 06/23/2025 6:15 AM [facility] Lymphocytes Absolute 0.73(L) 1.10 - 3.70 k/uL 06/23/2025 6:15 AM EDT [facility] Monocytes Absolute 0.67 0.10 - 1.20 k/uL 06/23/2025 6:15 AM EDT [facility] Eosinophils Absolute 0.06 0.00 - 0.44 k/uL 06/23/2025 6:15 AM EDT [facility] Immature Granulocytes Absolute 0.06 0.00 - 0.30 k/uL 06/23/2025 6:15 AM EDT [facility] Basophils Absolute 0.00 0.0 - 0.2 k/uL 06/23/2025 6:15 AM EDT [facility] Morphology Normal 06/23/2025 6:15 AM EDT [facility] 06/23/2025 6:15 AM EDT 06/23/2025 6:29 AM EDT us Gaetano Mazariegos MD HEMATOLOGY ORDERABLES Final Resu lt Performing Organization Address City/[facility]/ZIP Co de Phone Number [facility] [address] [place] [address] * EKG Rhythm Strip (06/23/2025 6:00 AM EDT) 06/23/2025 6:00 AM EDT Narrative [facility] - 06/24/2025 12:17 PM EDT us Unknown Provider Result ECG ORDERABLES Final Re sult Performing Organization Address [facility]/ZIP Co de Phone Number [facility] [address] [place] [address] * CT FEMUR RIGHT WO CONTRAST (06/22/2025 9:03 PM EDT) Anatomical Region Laterality Modality Hip, Thigh, Knee Computed Tomogr aphy 06/22/2025 10:2 0 PM EDT Impressions 06/22/2025 10:28 PM EDT 1. Probable skin blister on the anteromedial aspect of the mid right thigh measuring approximately 6.7 x 5.8 x 1.3 cm. Mild adjacent subcutaneous fat stranding. No deep soft tissue ulceration or soft tissue gas identified. 2. No acute osseous abnormality. Narrative 06/22/2025 10:28 PM EDT EXAMINATION: CT OF THE RIGHT FEMUR WITH CONTRAST 06/22/2025 9:03 pm TECHNIQUE: CT of the right femur was performed with the administration of intravenous contrast. Multiplanar reformatted images are provided for review. Automated exposure control, iterative reconstruction, and/or weight based adjustment of the mA/kV was utilized to reduce the radiation dose to as low as reasonably achievable. COMPARISON: None. HISTORY ORDERING SYSTEM PROVIDED HISTORY: Right leg/thigh wound TECHNOLOGIST PROVIDED HISTORY: Right leg/thigh wound FINDINGS: Bones: No fracture or dislocation. No osseous erosion or periosteal reaction. No suspicious lytic or blastic osseous lesion. Soft Tissue: Probable skin blister on the anteromedial aspect of the mid right thigh measuring approximately 6.7 x 5.8 x 1.3 cm. Mild adjacent subcutaneous fat stranding. No deep soft tissue ulceration or soft tissue gas identified. Mild atherosclerotic calcific plaquing. The visualized soft tissue contents of the pelvis are grossly unremarkable. No inguinal lymphadenopathy. The visualized musculature is normal in appearance. Joint: Mild right hip degenerative changes. Mild patellofemoral compartment degenerative changes. The medial and lateral compartments of the knee are unremarkable. No knee effusion or popliteal cyst. Procedure Note Brian Yates MD - 06/22/2025 EXAMINATION: CT OF THE RIGHT FEMUR WITH CONTRAST 06/22/2025 9:03 pm TECHNIQUE: CT of the right femur was performed with the administration ofintravenous contrast. Multiplanar reformatted images are provided for review.Automated exposure control, iterative reconstruction, and/or weight based adjustmentof the mA/kV was utilized to reduce the radiation dose to as low asreasonably achievable. COMPARISON: None. HISTORY ORDERING SYSTEM PROVIDED HISTORY: Right leg/thigh wound TECHNOLOGIST PROVIDED HISTORY: Right leg/thigh wound FINDINGS: Bones: No fracture or dislocation. No osseous erosion or periosteal reaction. No suspicious lytic or blastic osseous lesion. Soft Tissue: Probable skin blister on the anteromedial aspect of the mid right thigh measuring approximately 6.7 x 5.8 x 1.3 cm. Mild adjacent subcutaneous fat stranding. No deep soft tissue ulceration or softtissue gas identified. Mild atherosclerotic calcific plaquing. The visualizedsoft tissue contents of the pelvis are grossly unremarkable. No inguinal lymphadenopathy. The visualized musculature is normal in appearance. Joint: Mild right hip degenerative changes. Mild patellofemoralcompartment degenerative changes. The medial and lateral compartments of the kneeare unremarkable. No knee effusion or popliteal cyst. IMPRESSION: 1. Probable skin blister on the anteromedial aspect of the mid rightthigh measuring approximately 6.7 x 5.8 x 1.3 cm. Mild adjacent subcutaneousfat stranding. No deep soft tissue ulceration or soft tissue gas identified. 2. No acute osseous abnormality. us Gaetano Mazariegos MD IMG CT ORDERABLES Final Result * EKG Rhythm Strip (06/22/2025 8:00 PM EDT) 06/22/2025 8:00 PM EDT Narrative [facility] - 06/23/2025 4:51 AM EDT us Unknown Provider Result ECG ORDERABLES Final Re sult Performing Organization Address City/[facility]/ZIP Co de Phone Number [facility] [address] [place] [address] * Amylase (06/22/2025 6:23 PM EDT) Amylase 32 28 - 100 U/L 06/22/2025 6:23 PM EDT [facility] Blood BLOOD SPECIMEN / Unknown 06/22/2025 6:23 PM EDT 06/22/2025 6:34 PM EDT us Gaetano Mazariegos MD CHEMISTRY ORDERABLES Final Resul t Performing Organization Address [facility]/ZIP Co de Phone Number [facility] [address] [place] [address] * Lipase (06/22/2025 6:23 PM EDT) Lipase 31 13 - 60 U/L 06/22/2025 6:23 PM EDT [facility] Blood BLOOD SPECIMEN / Unknown 06/22/2025 6:23 PM EDT 06/22/2025 6:34 PM EDT Gaetano Mazariegos MD CHEMISTRY ORDERABLES Final Resul t Performing Organization Address [facility] Co de Phone Number [facility] [address] [place] [address] * TSH reflex to FT4 (06/22/2025 6:23 PM EDT) TSH 3.71 0.27 - 4.20 uIU/mL 06/22/2025 6:23 PM EDT [facility] Blood BLOOD SPECIMEN / Unknown 06/22/2025 6:23 PM EDT 06/22/2025 8:05 PM EDT Gaetano Mazariegos MD CHEMISTRY ORDERABLES Final Resul t Performing Organization Address [facility] Co de Phone Number [facility] [address] [place] [address] * (ABNORMAL) Troponin (06/22/2025 6:23 PM EDT) Pathologist [facility] Troponin, High Sensitivity 17(H) 0 - 14 ng/L 06/22/2025 6:23 PM EDT [facility] Comment:High Sensitivity Tro ponin values cannot be compared with other Troponin methodologies. Blood BLOOD SPECIMEN / Unknown 06/22/2025 6:23 PM EDT 06/22/2025 6:26 PM EDT Komal Clement MD CHEMISTRY ORDERABLES Final Res ult Performing Organization Address [facility] Co de Phone Number [facility] [address] [place] [address] * (ABNORMAL) Calcium, Ionized (06/22/2025 4:30 PM EDT) Calcium, Ionized 0.77(L) 1.13 - 1.33 mmol/L 06/22/2025 4:30 PM EDT [facility] 06/22/2025 4:30 PM EDT 06/22/2025 4:33 PM EDT us Komal Clement MD CHEMISTRY ORDERABLES Final Res ult [facility] [address] [place] [address], [facility] [phone] [facility] [address] [place], [place] [address] [phone] * (ABNORMAL) Comprehensive Metabolic Panel (06/22/2025 4:05 PM EDT) Sodium 135(L) 136 - 145 mmol/L 06/22/2025 4:05 PM T [facility] Potassium 5.3 3.7 - 5.3 mmol/L 06/22/2025 4:05 PM [facility] Chloride 101 98 - 107 mmol/L 06/22/2025 4:05 PM [facility] CO2 15(L) 20 - 31 mmol/L 06/22/2025 4:05 PM [facility] Anion Gap 19(H) 9 - 16 mmol/L 06/22/2025 4:05 PM [facility] Glucose 134(H) 74 - 99 mg/dL 06/22/2025 4:05 PM [facility] BUN 70(H) 8 - 23 mg/dL 06/22/2025 4:05 PM [facility] Creatinine 4.6(H) 0.50 - 0.90 mg/dL 06/22/2025 4:05 PM [facility] Est, Glom Filt Rate 9(L) >60 mL/min/1.7 3m2 06/22/2025 4:05 PM [facility] Comment: These results are [...] BUN/Creatinine Ratio 15 9 - 20 06/22/2025 4:05 PM EDT [facility] Calcium 5.8(LL) 8.6 - 10.4 mg/dL 06/22/2025 4:05 PM EDT [facility] Total Protein 6.4(L) 6.6 - 8.7 g/dL 06/22/2025 4:05 PM [facility] Albumin 4.0 3.5 - 5.2 g/dL 06/22/2025 4:05 PM T [facility] Albumin/Globulin Ratio 1.6 1.0 - 2.5 06/22/2025 4:05 PM T [facility] Total Bilirubin 0.3 0.00 - 1.20 mg/dL 06/22/2025 4:05 PM T [facility] Alkaline Phosphatase 386(H) 35 - 104 U/L 06/22/2025 4:05 PM T [facility] ALT 32 10 - 35 U/L 06/22/2025 4:05 PM T [facility] AST 33 10 - 35 U/L 06/22/2025 4:05 PM [facility] Blood BLOOD SPECIMEN / Unknown 06/22/2025 4:05 PM EDT 06/22/2025 4:23 PM EDT us Komal Clement MD CHEMISTRY ORDERABLES Final Res ult [facility] [address] [phone] * (ABNORMAL) PTH, Intact (06/22/2025 4:05 PM EDT) Pth Intact 313.0(H) 17.9 - 58.6 pg/mL 06/22/2025 4:05 PM EDT [facility] Blood BLOOD SPECIMEN / Unknown 06/22/2025 4:05 PM EDT 06/22/2025 4:23 PM EDT us Komal Clement MD CHEMISTRY ORDERABLES Final Res ult Performing Organization Address [facility]/ZIP Co de Phone Number [facility] [address] [place] [address], [facility] [phone] [place] [address] [place] [address], [facility] [phone] * (ABNORMAL) Troponin (06/22/2025 4:05 PM EDT) Troponin, High Sensitivity 19(H) 0 - 14 ng/L 06/22/2025 4:05 PM EDT [facility] Comment:High Sensitivity Tro ponin values cannot be compared with other Troponin methodologies. Blood BLOOD SPECIMEN / Unknown 06/22/2025 4:05 PM EDT 06/22/2025 4:23 PM EDT us Komal Clement MD CHEMISTRY ORDERABLES Final Res ult Performing Organization Address [facility] Co de Phone Number [facility] [address] [place] [address] * (ABNORMAL) Phosphorus (06/22/2025 4:05 PM EDT) Phosphorus 4.6(H) 2.5 - 4.5 mg/dL 06/22/2025 4:05 PM EDT [facility] Blood BLOOD SPECIMEN / Unknown 06/22/2025 4:05 PM EDT 06/22/2025 4:23 PM EDT us Komal Clement MD CHEMISTRY ORDERABLES Final Res ult Performing Organization Address City/[facility]/ZIP Co de Phone Number [facility] [address] [place] [address], [facility] [phone] * (ABNORMAL) Magnesium (06/22/2025 4:05 PM EDT) Pathologist [facility] Magnesium 1.1(L) 1.6 - 2.4 mg/dL 06/22/2025 4:05 PM EDT [facility] Blood BLOOD SPECIMEN / Unknown 06/22/2025 4:05 PM EDT 06/22/2025 4:23 PM EDT Komal Clement MD CHEMISTRY ORDERABLES Final Res ult [facility] [address] [phone] * (ABNORMAL) CBC with Auto Differential (06/22/2025 4:05 PM EDT) Pathologist [facility] WBC 6.4 3.5 - 11.3 k/uL 06/22/2025 4:05 PM EDT [facility] RBC 2.58(L) 3.95 - 5.11 m/uL 06/22/2025 4:05 PM [facility] Hemoglobin 7.7(L) 11.9 - 15.1 g/dL 06/22/2025 4:05 PM EDT [facility] Hematocrit 24.2(L) 36.3 - 47.1 % 06/22/2025 4:05 PM EDT [facility] MCV 93.8 82.6 - 102.9 fL 06/22/2025 4:05 PM EDT [facility] MCH 29.8 25.2 - 33.5 pg 06/22/2025 4:05 PM [facility] MCHC 31.8 28.4 - 34.8 g/dL 06/22/2025 4:05 PM EDT [facility] RDW 13.5 11.8 - 14.4 % 06/22/2025 4:05 PM EDT [facility] Platelets 121(L) 138 - 453 k/uL 06/22/2025 4:05 PM [facility] MPV 11.2 8.1 - 13.5 fL 06/22/2025 4:05 PM [facility] NRBC Automated 0.0 0.0 per 100 WBC 06/22/2025 4:05 PM [facility] Neutrophils % 77(H) 36 - 65 % 06/22/2025 4:05 PM [facility] Lymphocytes % 12(L) 24 - 43 % 06/22/2025 4:05 PM [facility] Monocytes % 9 3 - 12 % 06/22/2025 4:05 PM [facility] Eosinophils % 1 1 - 4 % 06/22/2025 4:05 PM [facility] Basophils % 0 0 - 2 % 06/22/2025 4:05 PM [facility] Immature Granulocytes % 1(H) 0 % 06/22/2025 4:05 PM [facility] Neutrophils Absolute 4.99 1.50 - 8.10 k/uL 06/22/2025 4:05 PM [facility] Lymphocytes Absolute 0.76(L) 1.10 - 3.70 k/uL 06/22/2025 4:05 PM [facility] Monocytes Absolute 0.55 0.10 - 1.20 k/uL 06/22/2025 4:05 PM [facility] Eosinophils Absolute 0.06 0.00 - 0.44 k/uL 06/22/2025 4:05 PM [facility] Basophils Absolute <0.03 0.00 - 0.20 k/uL 06/22/2025 4:05 PM [facility] Immature Granulocytes Absolute 0.05 0.00 - 0.30 k/uL 06/22/2025 4:05 PM [facility] Blood BLOOD SPECIMEN / Unknown 06/22/2025 4:05 PM EDT 06/22/2025 4:23 PM EDT us Komal G Cintra MD HEMATOLOGY ORDERABLES Final Re sult Performing Organization Address [facility]/ZIP Co de Phone Number [facility] [address] [place] [address], [facility] [phone] * EKG 12 Lead (06/22/2025 3:53 PM EDT) Ventricular Rate 77 BPM [facility] Atrial Rate 77 BPM [facility] P-R Interval 158 ms [facility] QRS Duration 84 ms [facility] Q-T Interval 410 ms [facility] QTc Calculation (Bazett) 463 ms [facility] P [place] 36 degrees [facility] R [place] 71 degrees [facility] T [place] 39 degrees [facility] 06/22/2025 3:53 PM EDT Narrative [facility] - 06/22/2025 8:07 PM EDT Poor data quality, interpretation may be adversely affected Normal sinus rhythm Normal ECG No previous ECGs available Confirmed by Jayleen Price ([id number]) on 06/22/2025 8:07:21 PM Procedure Note Jayleen Price MD - 06/22/2025 Poor data quality, interpretation may be adversely affected Normal sinus rhythm Normal ECG No previous ECGs available Confirmed by Jayleen Price ([id number]) on 06/22/2025 8:07:21 PM us Komal Clement MD ECG ORDERABLES Final Result Performing Organization Address [facility]/ZIP Co de Phone Number [facility] documented in this encounter Visit Diagnoses Diagnosis Hypocalcemia- Primary Hypocalcemia Hypomagnesemia Disorders of magnesium metabolism Acute kidney injury superimposed on CKD Skin lesion of right leg Unspecified disorder of skin and subcutaneous tissue Acute renal failure, unspecified acute renal failure type Anemia, unspecified type Severe malnutrition Nutritional marasmus Pancreatic insufficiency Other specified disease of pancreas Hypomagnesemia Disorders of magnesium metabolism History of heart transplant (HCC) Heart replaced by transplant Duodenitis Duodenitis without mention of hemorrhage Generalized anxiety disorder Heart transplanted (HCC) Heart replaced by transplant Diverticulosis of large intestine without hemorrhage Moderate malnutrition Malnutrition of moderate degree CKD (chronic kidney disease), stage IV (HCC) Chronic kidney disease, Stage IV (severe) Hyperphosphatemia Disorders of phosphorus metabolism Metabolic acidosis Acidosis Acute kidney injury superimposed on CKD documented in this encounter Admitting Diagnoses Diagnosis Hypocalcemia Acute kidney injury superimposed on CKD documented in this encounter Administered Medications Inactive Administered Medications - up to 3 most recent administrations Medication Order MAR Action Action Date Dose Rate Site 0.9 % sodium chloride infusion IntraVENous, at 75 mL/hr, CONTINUOUS, Starting on Sat06/22/25 at 2000, For 24 hours, Complete last bag that is running at 24 hours and then saline lock IV New Bag 06/22/2025 8:07 PM EDT 75 mL/h r 0.9 % sodium chloride infusion IntraVENous, at 240 mL/hr, Administer over 10 Minutes, PRN, blood administration, Starting on Sat06/23/25 at 0702, For 1 dose, For use in priming line prior to transfusion (prime via gravity) and flush line post transfusion ONLY. Discontinue once line has been cleared of remaining blood product. 0.9 % sodium chloride infusion IntraVENous, at 75 mL/hr, CONTINUOUS, Starting on Sat06/25/25 at 1215 Rate/Dose Verify 06/26/2025 1:17 PM EDT 75 mL/hr Rate/Dose Verify 06/26/2025 5:41 AM EDT 75 mL/h r Rate/Dose Verify 06/26/2025 4:55 AM EDT 75 mL/h r acetaminophen (TYLENOL) suppository 650 mg 650 mg, Rectal, EVERY 6 HOURS PRN, Starting on Sat06/22/25 at 1937, Until 06/26/25 at 1701, Pain Mild (1-3) OR per patient request for pain score (4-10), Fever, For temp greater than 100.4 F (38 C), Administer if oral route cannot be used. acetaminophen (TYLENOL) tablet 650 mg 650 mg, Oral, EVERY 6 HOURS PRN, Starting on Sat06/22/25 at 1937, Until 06/26/25 at 1701, Pain Mild (1-3) OR per patient request for pain score (4-10), Fever, For temp greater than 100.4 F (38 C), Maximum dose of acetaminophen is 4000 mg from all sources in 24 hours. Given 06/24/2025 4:22 PM EDT 650 mg ascorbic acid (VITAMIN C) tablet 500 mg 500 mg, Oral, DAILY, First dose on Sat06/23/25 at 0900, Until Discontinued Given 06/26/2025 10:14 AM EDT 500 mg Given 06/25/2025 8:43 AM EDT 500 mg Given 06/24/2025 7:34 AM EDT 500 mg aspirin EC tablet 81 mg 81 mg, Oral, DAILY, First dose on Sat06/23/25 at 0900, Until Discontinued, Do not crush or break., On hold since Sat06/25/2025 at 1224 until manually unheld Given 06/25/2025 8:42 AM EDT 81 mg Given 06/24/2025 7:35 AM EDT 81 mg Given 06/23/2025 9:10 AM EDT 81 mg atorvastatin (LIPITOR) tablet 10 mg 10 mg, Oral, DAILY, First dose on Sat06/22/25 at 2000, Until Discontinued, Substituted for Simvastatin (ZOCOR). Given 06/26/2025 10:13 AM EDT 10 mg Given 06/25/2025 8:43 AM EDT 10 mg Given 06/24/2025 7:35 AM EDT 10 mg calcium acetate (PHOSLO) capsule 667 mg 667 mg (1 capsule), Oral, 3 TIMES DAILY WITH MEALS, First dose on Sat06/23/25 at 1345, Until Discontinued Given 06/26/2025 1:16 PM EDT 667 mg Given 06/26/2025 10:13 AM EDT 667 mg Given 06/25/2025 4:53 PM EDT 667 mg calcium carbonate (TUMS) chewable tablet 1,000 mg 1,000 mg, Oral, 2 times daily, First dose on Sat06/24/25 at 1130, Until Discontinued Given 06/26/2025 10:13 AM EDT 1,000 mg Given 06/25/2025 9:31 PM EDT 1,000 mg Given 06/25/2025 8:42 AM EDT 1,000 mg calcium gluconate 2,000 mg in sodium chloride 0.9 % 100 mL IVPB 2,000 mg, IntraVENous, ONCE, 1 dose, On Sat06/22/25 at 2330, Infuse at 1 gram/hr. New Bag 06/22/2025 11:49 PM EDT 2,000 mg 50 mL/hr calcium gluconate 2,000 mg in sodium chloride 100 mL 2,000 mg, IntraVENous, at 50 mL/hr, Administer over 120 Minutes, ONCE, On Sat06/22/25 at 1715, For 1 dose New 06/22/2025 5:17 PM EDT 2,000 mg 50 mL/hr calcium gluconate 2,000 mg in sodium chloride 100 mL 2,000 mg, IntraVENous, at 50 mL/hr, Administer over 120 Minutes, Once, On Sat06/23/25 at 1400, For 1 dose Restarted 06/23/2025 6:19 PM EDT 50 mL/hr Restarted 06/23/2025 5:56 PM EDT 50 mL/hr New 06/23/2025 5:22 PM EDT 2,000 mg 50 mL/hr calcium gluconate 2,000 mg in sodium chloride 100 mL 2,000 mg, IntraVENous, at 50 mL/hr, Administer over 120 Minutes, Once, On Sat06/24/25 at 1430, For 1 dose Rate/Dose Verify 06/24/2025 3:45 PM EDT 50 mL/hr New 06/24/2025 3:00 PM EDT 2,000 mg 50 mL/hr calcium gluconate 2,000 mg in sodium chloride 100 mL 2,000 mg, IntraVENous, at 50 mL/hr, Administer over 120 Minutes, Once, On Sat06/25/25 at 1215, For 1 dose New 06/25/2025 12:40 PM EDT 2,000 mg 50 mL/hr carvedilol (COREG) tablet 12.5 mg 12.5 mg, Oral, 2 TIMES DAILY WITH MEALS, First dose on Sat06/22/25 at 2000, Until Discontinued, Administer with food to minimize the risk of orthostatic hypotension Given 06/26/2025 10:21 AM EDT 12.5 mg Given 06/25/2025 4:53 PM EDT 12.5 mg Given 06/25/2025 8:43 AM EDT 12.5 mg cholestyramine light packet 4 g 4 g, Oral, 2 TIMES DAILY, First dose on Sat06/26/25 at 0900, Until Discontinued, Administer other oral medications 1 hour before or 4 to 6 hours after cholestyramine. Given 06/26/2025 10:13 AM ED T 4 g clonazePAM (KLONOPIN) tablet 0.5 mg 0.5 mg, Oral, 2 TIMES DAILY PRN, Starting on Sat06/22/25 at 1937, Until Sat06/26/25 at 1701, Anxiety Given 06/25/2025 9:31 PM EDT 0.5 mg Given 06/24/2025 8:55 PM EDT 0.5 mg Given 06/23/2025 8:11 PM EDT 0.5 mg epoetin david-epbx (RETACRIT) injection 6,000 Units 6,000 Units, SubCUTAneous, EVERY MW (Once per day on Saturday), First dose on Sat06/23/25 at 1700 Given 06/25/2025 4:59 PM EDT 6,000 Units Abdomen RUQ (Right Upper Quadrant) Given 06/23/2025 5:24 PM EDT 6,000 Units A bdomen RLQ (Right Lower Quadrant) lactobacillus (CULTURELLE) capsule 1 capsule 1 capsule, Oral, DAILY WITH BREAKFAST, First dose on Sat06/26/25 at 0845, Until Discontinued, Therapeutic equivalent/ formulary substitution of BACID Do not add to warm or hot foods or beverages. Caps may be opened & mixed in a cool beverage or sprinkled onto baby food or applesauce. Mix entire packet content into cool food or drink until dissolved. Given 06/26/2025 10:18 AM EDT 1 capsule levothyroxine (SYNTHROID) tablet 112 mcg 112 mcg, Oral, DAILY BEFORE BREAKFAST, First dose on Sat06/23/25 at 0700, Until Discontinued, Tube feeding (TF) interaction, obtain physician order to manage, recommend holding TF for 30 minutes before and after dose. Given 06/26/2025 7:47 AM EDT 112 mcg Given 06/25/2025 8:43 AM EDT 112 mcg Given 06/24/2025 7:33 AM EDT 112 mcg rzccpm-ccdzczaf-jlxdhje (ZENPEP) delayed release capsule 20,000 Units 20,000 Units, Oral, 3 TIMES DAILY WITH MEALS, First dose on Sat06/22/25 at 2000, Until Discontinued, Substituted for pancrelipase (see [employer]RARY [employer]ICAL ASSISTANT medication list). Given 06/26/2025 10:12 AM EDT 20,000 Units Given 06/25/2025 4:52 PM EDT 20,000 Units Given 06/25/2025 12:32 PM EDT 20,000 Units fmxhcl-nwfsvlfb-uxckktc (ZENPEP) delayed release capsule 5,000 Units 5,000 Units, Oral, 3 TIMES DAILY WITH MEALS, First dose on Sat06/22/25 at 2000, Until Discontinued, Substituted for pancrelipase (see LIBRARY CLERICAL ASSISTANT medication list). Given 06/26/2025 10:12 AM EDT 5,000 Units Given 06/25/2025 4:53 PM EDT 5,000 Units Given 06/25/2025 12:32 PM EDT 5,000 Units loperamide (IMODIUM) capsule 2 mg 2 mg, Oral, 4 TIMES DAILY PRN, Starting on Sat06/23/25 at 1407, Until Sat06/26/25 at 1701, Diarrhea, After each loose stool. Given 06/25/2025 9:31 PM EDT 2 mg Given 06/25/2025 3:16 PM EDT 2 mg Given 06/25/2025 8:42 AM EDT 2 mg magnesium oxide (MAG-OX) tablet 400 mg 400 mg, Oral, 3 times daily, First dose on Sat06/22/25 at 2100, Until Discontinued Given 06/26/2025 10:14 AM EDT 400 mg Given 06/25/2025 9:31 PM EDT 400 mg Given 06/25/2025 3:16 PM EDT 400 mg magnesium sulfate 2000 mg in 50 mL IVPB premix 2,000 mg, IntraVENous, at 25 mL/hr, Administer over 2 Hours, ONCE, On Sat06/22/25 at 1715, For 1 dose New Bag 06/22/2025 5:18 PM EDT 2,000 mg 25 mL/hr magnesium sulfate 2000 mg in 50 mL IVPB premix 2,000 mg, IntraVENous, at 25 mL/hr, Administer over 2 Hours, ONCE, On Sat06/24/25 at 1100, For 1 dose, Recommended infusion rate not to exceed 1,000 mg (milligrams) per hour. New Bag 06/24/2025 11:23 AM EDT 2,000 mg 25 mL/h r multivitamin 1 tablet 1 tablet, Oral, DAILY, First dose on Sat06/23/25 at 0900, Until Discontinued Given 06/26/2025 10:14 AM EDT 1 tablet Given 06/25/2025 8:43 AM EDT 1 tablet Given 06/24/2025 7:33 AM EDT 1 tablet mycophenolate (CELLCEPT) capsule 500 mg (Patient Supplied) 500 mg, Oral, 2 TIMES DAILY, First dose on Sat06/22/25 at 2100, Until Discontinued, Do not crush or break. Given 06/26/2025 10:18 AM EDT 500 mg Given 06/25/2025 9:34 PM EDT 500 mg Given 06/25/2025 8:44 AM EDT 500 mg ondansetron (ZOFRAN) injection 4 mg 4 mg, IntraVENous, EVERY 6 HOURS PRN, Starting on Sat06/22/25 at 1937, Until Sat06/26/25 at 1701, Nausea, Vomiting, Administer if oral route cannot be used. ondansetron (ZOFRAN-ODT) disintegrating tablet 4 mg 4 mg, Oral, EVERY 8 HOURS PRN, Starting on Sat06/22/25 at 1937, Until Sat06/26/25 at 1701, Nausea, Vomiting pantoprazole (PROTONIX) 40 mg in sodium chloride (PF) 0.9 % 10 mL injection 40 mg, IntraVENous, DAILY, First dose on Sat06/23/25 at 1530, Reconstitute with 10 mL 0.9 % sodium chloride and administer over at least 2 minutes. Given 06/26/2025 10:13 AM EDT 40 mg Given 06/25/2025 8:43 AM EDT 40 mg Given 06/24/2025 7:32 AM EDT 40 mg pramipexole (MIRAPEX) tablet 0.5 mg 0.5 mg, Oral, NIGHTLY, First dose on Sat06/22/25 at 2100, Until Discontinued, Give 2-3 hours before bedtime. Given 06/25/2025 9:31 PM EDT 0.5 mg Given 06/24/2025 8:56 PM EDT 0.5 mg Given 06/23/2025 8:25 PM EDT 0.5 mg sodium bicarbonate 75 mEq in sodium chloride 0.45 % 1,000 mL infusion IntraVENous, at 50 mL/hr, CONTINUOUS, Starting on Sat06/23/25 at 1300 New Bag 06/25/2025 8:49 AM EDT 50 mL/hr Rate/Dose Verify 06/25/2025 8:42 AM EDT 50 mL/h r Rate/Dose Verify 06/25/2025 7:41 AM EDT 50 mL/h r sodium bicarbonate tablet 1,300 mg 1,300 mg, Oral, 3 TIMES DAILY, First dose on Sat06/22/25 at 2100, Until Discontinued Given 06/26/2025 10:14 AM EDT 1,300 mg Given 06/25/2025 9:31 PM EDT 1,300 mg Given 06/25/2025 3:16 PM EDT 1,300 mg sodium chloride flush 0.9 % injection 10 mL 10 mL, IntraVENous, EVERY 12 HOURS SCHEDULED (2 times per day), First dose on Sat06/22/25 at 2100, Until Discontinued Given 06/25/2025 8:45 AM EDT 10 mLs Given 06/24/2025 7:44 AM EDT 10 mLs Given 06/23/2025 8:12 PM EDT 10 mLs tacrolimus (PROGRAF) capsule 1 mg (Patient Supplied) 1 mg, Oral, DAILY, First dose (after last modification) on Sat06/23/25 at 1030, Until DiscontinuedIndications:for a total of 1mg/daily Given 06/26/2025 10:18 AM EDT 1 mg Given 06/25/2025 8:43 AM EDT 1 mg Given 06/24/2025 7:44 AM EDT 1 mg vitamin D (ERGOCALCIFEROL) capsule 50,000 Units 50,000 Units, Oral, WEEKLY, 4 doses, First dose on Sat06/23/25 at 1300, Last dose on Sat07/14/25 at 0900, Capsule may be opened and the liquid contents removed for administration Given 06/23/2025 2:22 PM EDT 50,000 Units documented in this encounter Active and Recently Administered Medications Times are shown in EDT. Scheduled Medication Order 06/24/2025 06/25/2025 06/26/2025 alendronate (FOSAMAX) tablet 70 mg 70 mg, Oral, EVERY 7 DAYS, First dose on Sat06/22/25 at 2000, Until Discontinued, Take with a full glass of water upon arising for the day. Consume on an empty stomach at least 30 minutes before the first food, beverage, or medication. Instruct patient to stay upright (not lie down) for at least 30 minutes and until after first food of the day. Do not crush or break., On hold since Sat06/22/2025 at 1937 until manually unheld 1701 (Unheld by provider - Provider: Automatic Discharge Provider) ascorbic acid (VITAMIN C) tablet 500 mg 500 mg, Oral, DAILY, First dose on Sat06/23/25 at 0900, Until Discontinued 0734 (Given - Provider: Shawna Tipton RN) 0843 (Given - Provider: Yaritza Ruggiero RN) 1014 (Given - Provider: Sahra Burger RN) aspirin EC tablet 81 mg 81 mg, Oral, DAILY, First dose on Sat06/23/25 at 0900, Until Discontinued, Do not crush or break., On hold since Sat06/25/2025 at 1224 until manually unheld 0735 (Given - Provider: Shawna Tipton RN) 0842 (Given - Provider: Yaritza Ruggiero RN)1224 (Held by provider - Provider: DUSTY Flores CNP - Reason: Other - Comment: Blood in stool, low hgb) 0900 (Automatically Held - Provider: DUSTY Flores CNP)1701 (Unheld by provider - Provider: Automatic Discharge Provider) atorvastatin (LIPITOR) tablet 10 mg 10 mg, Oral, DAILY, First dose on Sat06/22/25 at 2000, Until Discontinued, Substituted for Simvastatin (ZOCOR). 0735 (Given - Provider: Shawna Tipton RN) 0843 (Given - Provider: Yaritza Ruggiero RN) 1013 (Given - Provider: Sahra Burger RN) calcium acetate (PHOSLO) capsule 667 mg 667 mg (1 capsule), Oral, 3 TIMES DAILY WITH MEALS, First dose on Sat06/23/25 at 1345, Until Discontinued 0733 (Given - Provider: Shawna Tipton RN)1112 (Given - Provider: Shawna Tipton RN)1623 (Given - Provider: Shawna Tipton RN) 0843 (Given - Provider: Yaritza Ruggiero RN)1232 (Given - Provider: Yaritza Ruggiero RN)1653 (Given - Provider: Yaritza Ruggiero RN) 1013 (Given - Provider: Sahra Burger, SHELDON)1316 (Given - Provider: Sahra Burger RN) calcium carbonate (TUMS) chewable tablet 1,000 mg 1,000 mg, Oral, 2 times daily, First dose on Sat06/24/25 at 1130, Until Discontinued 1148 (Given - Provider: Shawna Tipton RN)2055 (Given - Provider: Yvonne Mcclendon RN) 0842 (Given - Provider: Yaritza Ruggiero RN)2131 (Given - Provider: Alannah Pham RN) 1013 (Given - Provider: Sahra Burger RN) calcium gluconate 2,000 mg in sodium chloride 100 mL (COMPLETED) 2,000 mg, IntraVENous, at 50 mL/hr, Administer over 120 Minutes, Once, On Sat06/24/25 at 1430, For 1 dose 1500 (New Bag - Provider: Shawna Tipton RN)1545 (Rate/Dose Verify - Provider: Shawna Tipton RN)1654 (Stopped - Provider: Yvonne Mcclendon RN)1700 (Stopped - Provider: Tammy Cintron) calcium gluconate 2,000 mg in sodium chloride 100 mL (COMPLETED) 2,000 mg, IntraVENous, at 50 mL/hr, Administer over 120 Minutes, Once, On Sat06/25/25 at 1215, For 1 dose 1240 (New Bag - Provider: Yaritza Ruggiero RN)1440 (Stopped - Provider: Sahra Burger RN)1518 (Stopped - Provider: Yaritza Ruggiero, SHELDON) carvedilol (COREG) tablet 12.5 mg 12.5 mg, Oral, 2 TIMES DAILY WITH MEALS, First dose on Sat06/22/25 at 2000, Until Discontinued, Administer with food to minimize the risk of orthostatic hypotension 0734 (Given - Provider: Shawna Tipton RN)1623 (Given - Provider: Shawna Tipton RN) 0843 (Given - Provider: Yaritza Ruggiero RN)1653 (Given - Provider: Yaritza Ruggiero RN) 1021 (Given - Provider: Sahra Burger, SHELDON) cholestyramine light packet 4 g 4 g, Oral, 2 TIMES DAILY, First dose on Sat06/26/25 at 0900, Until Discontinued, Administer other oral medications 1 hour before or 4 to 6 hours after cholestyramine. 1013 (Given - Provider: Sahra Burger, SHELDON) epoetin david-epbx (RETACRIT) injection 6,000 Units 6,000 Units, SubCUTAneous, EVERY MWF (Once per day on Saturday), First dose on Sat06/23/25 at 1700 1659 (Given - Provider: Yaritza Ruggiero, SHELDON) lactobacillus (CULTURELLE) capsule 1 capsule 1 capsule, Oral, DAILY WITH BREAKFAST, First dose on Sat06/26/25 at 0845, Until Discontinued, Therapeutic equivalent/ formulary substitution of BACID Do not add to warm or hot foods or beverages. Caps may be opened & mixed in a cool beverage or sprinkled onto baby food or applesauce. Mix entire packet content into cool food or drink until dissolved. 1018 (Given - Provider: Sahra Burger RN) levothyroxine (SYNTHROID) tablet 112 mcg 112 mcg, Oral, DAILY BEFORE BREAKFAST, First dose on Sat06/23/25 at 0700, Until Discontinued, Tube feeding (TF) interaction, obtain physician order to manage, recommend holding TF for 30 minutes before and after dose. 0733 (Given - Provider: Shawna Tipton RN) 0843 (Given - Provider: Yaritza Ruggiero RN) 0747 (Given - Provider: Sahra Burger, SHELDON) ngtbmk-cfpskjjr-qjeplaf (ZENPEP) delayed release capsule 20,000 Units 20,000 Units, Oral, 3 TIMES DAILY WITH MEALS, First dose on Sat06/22/25 at 2000, Until Discontinued, Substituted for pancrelipase (see LIBRARY CLERICAL ASSISTANT medication list). 0732 (Given - Provider: Shawna Tipton RN)1112 (Given - Provider: Shawna Tipton RN)1621 (Given - Provider: Shawna Tipton RN) 0845 (Given - Provider: Yaritza Ruggiero RN)1232 (Given - Provider: Yaritza Ruggiero RN)1652 (Given - Provider: Yaritza Ruggiero RN) 1012 (Given - Provider: Sahra Burger RN)1255 (Not Given - Provider: Sahra Burger RN - Reason: Medication not available - Comment: Pharmacy made aware) wcmulf-padsbuic-yeripmk (ZENPEP) delayed release capsule 5,000 Units 5,000 Units, Oral, 3 TIMES DAILY WITH MEALS, First dose on Sat06/22/25 at 2000, Until Discontinued, Substituted for pancrelipase (see LIBRARY CLERICAL ASSISTANT medication list). 0732 (Given - Provider: Shawna Tipton RN)1112 (Given - Provider: Shawna Tipton RN)1621 (Given - Provider: Shawna Tipton RN) 0841 (Given - Provider: Yaritza Ruggiero RN)1232 (Given - Provider: Yaritza Ruggiero RN)1653 (Given - Provider: Yaritza Ruggiero RN) 1012 (Given - Provider: Sahra Burger RN)1255 (Not Given - Provider: Sahra Burger RN - Reason: Medication not available - Comment: Pharmacy made aware) magnesium oxide (MAG-OX) tablet 400 mg 400 mg, Oral, 3 times daily, First dose on Sat06/22/25 at 2100, Until Discontinued 0734 (Given - Provider: Shawna Tipton RN)1452 (Given - Provider: Shawna Tipton RN)2056 (Given - Provider: Yvonne Mcclendon RN) 0843 (Given - Provider: Yaritza Ruggiero RN)1516 (Given - Provider: Yaritza Ruggiero RN)2131 (Given - Provider: Alannah Pham RN) 1014 (Given - Provider: Sahra Burger RN) magnesium sulfate 2000 mg in 50 mL IVPB premix (COMPLETED) 2,000 mg, IntraVENous, at 25 mL/hr, Administer over 2 Hours, ONCE, On Sat06/24/25 at 1100, For 1 dose, Recommended infusion rate not to exceed 1,000 mg (milligrams) per hour. 1123 (New Bag - Provider: Shawna Tipton RN)1310 (Stopped - Provider: Shawna Tipton RN) multivitamin 1 tablet 1 tablet, Oral, DAILY, First dose on Sat06/23/25 at 0900, Until Discontinued 0733 (Given - Provider: Shawna Tipton RN) 0843 (Given - Provider: Yaritza Ruggiero RN) 1014 (Given - Provider: Sahra Burger, SHELDON) mycophenolate (CELLCEPT) capsule 500 mg (Patient Supplied) 500 mg, Oral, 2 TIMES DAILY, First dose on Sat06/22/25 at 2100, Until Discontinued, Do not crush or break. 0744 (Given - Provider: Shawna Tipton RN)2054 (Given - Provider: Yvonne Mcclendon RN) 0844 (Given - Provider: Yaritza Ruggiero RN)2133 (Given - Provider: Alannah Pham RN) 1018 (Given - Provider: Sahra Burger, SHELDON) pantoprazole (PROTONIX) 40 mg in sodium chloride (PF) 0.9 % 10 mL injection 40 mg, IntraVENous, DAILY, First dose on Sat06/23/25 at 1530, Reconstitute with 10 mL 0.9 % sodium chloride and administer over at least 2 minutes. 0732 (Given - Provider: Shawna Tipton RN) 0843 (Given - Provider: Yaritza Ruggiero RN) 1013 (Given - Provider: Sahra Burger, SHELDON) pramipexole (MIRAPEX) tablet 0.5 mg 0.5 mg, Oral, NIGHTLY, First dose on Sat06/22/25 at 2100, Until Discontinued, Give 2-3 hours before bedtime. 2055 (Given - Provider: Yvonne Mcclendon RN) 2130 (Given - Provider: Alannah Pham, SHELDON) sodium bicarbonate tablet 1,300 mg 1,300 mg, Oral, 3 TIMES DAILY, First dose on Sat06/22/25 at 2100, Until Discontinued 0733 (Given - Provider: Shawna Tipton RN)1452 (Given - Provider: Shawna Tipton RN)2055 (Given - Provider: Yvonne Mcclendon RN) 0843 (Given - Provider: Yaritza Ruggiero RN)151 (Given - Provider: Yaritza Ruggiero RN)2131 (Given - Provider: Alannah Pham RN) 1014 (Given - Provider: Sahra Burger, RN)1400 (Due) sodium chloride flush 0.9 % injection 10 mL 10 mL, IntraVENous, EVERY 12 HOURS SCHEDULED (2 times per day), First dose on Sat06/22/25 at 2100, Until Discontinued 0744 (Given - Provider: Shawna Tipton RN)2057 (Not Given - Provider: Yvonne Mcclendon RN - Reason: IV Fluid Infusing) 0845 (Given - Provider: Yaritza Ruggiero RN)213 (Not Given - Provider: Alannah Pham RN - Reason: Loss of IV access) 1016 (Not Given - Provider: Sahra Burger RN - Reason: IV Fluid Infusing) tacrolimus (PROGRAF) capsule 1 mg (Patient Supplied) 1 mg, Oral, DAILY, First dose (after last modification) on Sat06/23/25 at 1030, Until Discontinued 0744 (Given - Provider: Shawna Tipton RN) 0843 (Given - Provider: Yaritza Ruggiero RN) 1018 (Given - Provider: Sahra Burger RN) vitamin D (ERGOCALCIFEROL) capsule 50,000 Units 50,000 Units, Oral, WEEKLY, 4 doses, First dose on Sat06/23/25 at 1300, Last dose on Sat07/14/25 at 0900, Capsule may be opened and the liquid contents removed for administration Continuous Medication Order 06/24/2025 06/25/2025 06/26/2025 0.9 % sodium chloride infusion IntraVENous, at 75 mL/hr, CONTINUOUS, Starting on Sat06/25/25 at 1215 1237 (New Bag - Provider: Yaritza Ruggiero RN)1240 (Paused - Provider: Alannah Pham RN)1440 (Restarted - Provider: Alannah Pham RN)2320 (Rate/Dose Verify - Provider: Alannah Pham RN) 0003 (Paused - Provider: Sahra Burger RN)0010 (Restarted - Provider: Sahra Burger RN)0327 (Rate/Dose Verify - Provider: Sahra Burger RN)0455 (Rate/Dose Verify - Provider: Sahra Burger RN)0541 (Rate/Dose Verify - Provider: Sahra Burger RN)1317 (Rate/Dose Verify - Provider: Sahra Burger RN)1351 (Stopped - Provider: Sahra Burger RN) sodium bicarbonate 75 mEq in sodium chloride 0.45 % 1,000 mL infusion (CANCELED) IntraVENous, at 50 mL/hr, CONTINUOUS, Starting on Sat06/23/25 at 1300 0551 (Paused - Provider: Shawna Tipton RN)0555 (Paused - Provider: Shawna Tipton RN)0555 (Restarted - Provider: Shawna Tipton RN)0933 (Rate/Dose Change - Provider: Shawna Tipton RN)0938 (Rate/Dose Change - Provider: Shawna Tipton RN)1120 (Stopped - Provider: Shawna Tipton RN)1120 (New Bag - Provider: Shawna Tipton RN)1341 (Rate/Dose Verify - Provider: Shawna Tipton RN)1545 (Rate/Dose Verify - Provider: Shawna Tipton RN)1935 (Paused - Provider: Yvonne Mcclendon RN)1941 (Paused - Provider: Yvonne Mcclendon, RN)1941 (Restarted - Provider: Yvonne Mcclendon, SHELDON) 0510 (Rate/Dose Verify - Provider: Yvonne Mcclendon RN)0512 (Paused - Provider: Alannah Pham RN)0519 (Restarted - Provider: Alannah Pham RN)0741 (Rate/Dose Verify - Provider: Alannah Pham RN)0842 (Rate/Dose Verify - Provider: Alannah Pham RN)0849 (Stopped - Provider: Alannah Pham RN)0849 (New Bag - Provider: Yaritza Ruggiero RN)1236 (Stopped - Provider: Alannah Pham RN) PRN Medication Order 06/24/2025 06/25/2025 06/26/2025 0.9 % sodium chloride infusion IntraVENous, at 5-250 mL/hr, PRN, if patient receiving piggyback infusions and maintenance fluids are not ordered OR KVO fluids to protect IV site / prevent frequent line interruptions/ long duration, Starting on Sat06/22/25 at 193, For piggyback infusion, administer at same rate as piggyback for a total of 25 mL. Enter 25 mL into dose field and piggyback rate into rate field of order. If piggyback is infusing at a rate less than 100 mL/hr, enter 25 mL into dose field and 100 mL/hr into rate field of order. For KVO fluids, enter rate of 20 mL/hr or less into rate field of order. 0.9 % sodium chloride infusion IntraVENous, at 240 mL/hr, Administer over 10 Minutes, PRN, blood administration, Starting on Sat06/23/25 at 0702, For 1 dose, For use in priming line prior to transfusion (prime via gravity) and flush line post transfusion ONLY. Discontinue once line has been cleared of remaining blood product. acetaminophen (TYLENOL) suppository 650 mg(Linked Group 1) 650 mg, Rectal, EVERY 6 HOURS PRN, Starting on Sat06/22/25 at 1936, Until 06/26/25 at 1701, Pain Mild (1-3) OR per patient request for pain score (4-10), Fever, For temp greater than 100.4 F (38 C), Administer if oral route cannot be used. 1621 (See Alternative - Provider: Shawna Tipton RN) acetaminophen (TYLENOL) tablet 650 mg(Linked Group 1) 650 mg, Oral, EVERY 6 HOURS PRN, Starting on Sat06/22/25 at 193, Until Sat06/26/25 at 1701, Pain Mild (1-3) OR per patient request for pain score (4-10), Fever, For temp greater than 100.4 F (38 C), Maximum dose of acetaminophen is 4000 mg from all sources in 24 hours. 162 (Given - Provider: Shawna Tipton RN) clonazePAM (KLONOPIN) tablet 0.5 mg 0.5 mg, Oral, 2 TIMES DAILY PRN, Starting on Sat06/22/25 at 193, Until Sat06/26/25 at 1701, Anxiety 2054 (Given - Provider: Yvonne Mcclendon RN) 2130 (Given - Provider: Alannah Pham RN) loperamide (IMODIUM) capsule 2 mg 2 mg, Oral, 4 TIMES DAILY PRN, Starting on Sat06/23/25 at 1407, Until 06/26/25 at 1701, Diarrhea, After each loose stool. 1015 (Given - Provider: Shawna Tipton RN) 0002 (Given - Provider: Yvonne Mcclendon RN)0842 (Given - Provider: Yaritza Ruggiero, SHELDON)1516 (Given - Provider: Yaritza Ruggiero, SEHLDON)2131 (Given - Provider: Alannah Pham RN) ondansetron (ZOFRAN) injection 4 mg(Linked Group 2) 4 mg, IntraVENous, EVERY 6 HOURS PRN, Starting on Sat06/22/25 at 1937, Until 06/26/25 at 1701, Nausea, Vomiting, Administer if oral route cannot be used. ondansetron (ZOFRAN-ODT) disintegrating tablet 4 mg(Linked Group 2) 4 mg, Oral, EVERY 8 HOURS PRN, Starting on Sat06/22/25 at 1937, Until 06/26/25 at 1701, Nausea, Vomiting polyethylene glycol (GLYCOLAX) packet 17 g 17 g, Oral, DAILY PRN, Starting on Sat06/22/25 at 1937, Until 06/26/25 at 1701, Constipation, First line therapy for constipation sodium chloride flush 0.9 % injection 10 mL 10 mL, IntraVENous, PRN, Starting on Sat06/22/25 at 193, Until 06/26/25 at 1701, Line Care, After every IV line use Linked Groups Order Group 1: acetaminophen (TYLENOL) tablet 650 mgJump to med 650 mg, Oral, EVERY 6 HOURS PRN, Starting on Sat06/22/25 at 1937, Until 06/26/25 at 1701, Pain Mild (1-3) OR per patient request for pain score (4-10), Fever, For temp greater than 100.4 F (38 C), Maximum dose of acetaminophen is 4000 mg from all sources in 24 hours. Or acetaminophen (TYLENOL) suppository 650 mgJump to med 650 mg, Rectal, EVERY 6 HOURS PRN, Starting on Sat06/22/25 at 1937, Until 06/26/25 at 1701, Pain Mild (1-3) OR per patient request for pain score (4-10), Fever, For temp greater than 100.4 F (38 C), Administer if oral route cannot be used. Group 2: ondansetron (ZOFRAN-ODT) disintegrating tablet 4 mgJump to med 4 mg, Oral, EVERY 8 HOURS PRN, Starting on e 06/22/25 at 1937, Until 06/26/25 at 1701, Nausea, Vomiting Or ondansetron (ZOFRAN) injection 4 mgJump to med 4 mg, IntraVENous, EVERY 6 HOURS PRN, Starting on Sat06/22/25 at 1937, Until 06/26/25 at 1701, Nausea, Vomiting, Administer if oral route cannot be used. documented in this encounter Additional Health Concerns Infection Onset Date Last Indicated Resolved Time C-diff Rule Out 06/22/2025 06/23/2025 06/23/2025 1 2:01 PM EDT documented as of this encounter Care Teams Agriculture Instructor Relationship Specialty Start Date End Date Vijay Davis MD [address] [place] [address] PCP - General Family Medicine 05/28/25 documented as of this encounter
--- OUTSIDE RECORDS SUMMARY | 2025-07-05 06:45 | XMS_ITS ---
Author Organization [facility] [place] Address [address] [place] [address] Care Team Providers Care Lacrosse Coach Name Role Phone King Davis Primary Care Provider Allergies Allergen (clinical drug ingredient) Drug/Non Drug Allergy documented on EMR Reaction Allergy Type Onset Date Status promethazine Phenergan anaphylaxis Drug Allergy Ac tive suvorexant Belsomra Unknown Drug Allergy Active REASON FOR VISIT Presents to office alone for TCM Cassi Armstrong- Dehydration Medications Medication SIG (Take, Route, Frequency, Duration) Notes Start Date End Date Status Timolol Maleate 0.5 % 1 drop into affect ed Ophthalmic twice daily 02/03/2025 Active clonazePAM 1 MG 1 tablet Orally BID for 7 days As needed 07/05/2025 Active Amitriptyline HCl 10 MG 1 tablet Orally at bedtime 02/03/2025 Active Acetaminophen 325 MG 1-2 tablet as neede d Orally every 4 hrs 02/03/2025 Active Alendronate Sodium 70 MG 1 tablet 30 min utes before the first food Orally once weekly 02/03/2025 Active Simvastatin 20 MG take 1 tablet by bettina th every evening for 90 Active Sodium Bicarbonate 650 MG 1 tablet Orally TID 04/2025 Active Synthroid 112 MCG 1 tablet in the morn ing on an empty stomach Orally Once a day for 90 days Active Tacrolimus 1 MG 1 capsule Orally BID Active Mycophenolate Mofetil 250 MG 1 capsule O rally Twice a day for 30 days 02/03/2025 Active Doxepin HCl 10 MG 1 capsule at bedtime Orally Once a day for 30 days 02/03/2025 Active Ergocalciferol 1.25 MG (14655 UT) 1 capsule Orally once weekly 02/03/2025 Active Magnesium Oxide 400 MG 1 tablet Orally B ID for 30 days Active Latanoprost 0.005 % 1 drop into affected eye Ophthalmic at bedtime 02/03/2025 Active Loperamide HCl 2 MG 1 capsule Orally twi ce daily 02/03/2025 Active Blood Pressure Monitor - as directed Active Brimonidine Tartrate 0.2 % 1 drop into a ffected eye Ophthalmic three times daily 02/03/2025 Active Creon 20264-95215 UNIT take 3 capsules O rally three times daily for 30 days Active Dorzolamide HCl 2 % 1 drop into affected eye Ophthalmic twice daily 02/03/2025 Active Aspirin 81 81 MG 1 tablet Orally Once a day Active Social History Tobacco Use: Social History Observation Description Date Details (start date - stop date) Never Smoker NA - NA Tobacco Use/Smoking Question Answer Notes Patient is a nonsmoker AUDIT-C (Standard) Question Answer Notes Did you have a drink containing alcohol in the p ast year? 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 [address] [place] [address] 07/05/2025 King Davis Chronic kidney disea se, stage 4 (severe) N18.4 ; Chronic kidney disease due to diabetes mellitus E11.22 ; Central retinal vein occlusion, left eye, with macular edema H34.8120 ; Weakness R53.1 ; Hypertension I10 and Anxiety disorder, unspecified F41.9 Assessments Encounter Date Diagnosis (ICD Code) Assessment Notes Treatment Notes Treatment Clinical Notes Section Notes 07/05/2025 Chronic kidney disease, stage 4 (severe) (ICD-10 - N18.4) checking labs - was admitted for same 07/05/2025 Chronic kidney disease due to diabetes mellitus (ICD-10 - E11.22) checiing on labs 07/05/2025 Central retinal vein occlusion, left eye, with macular edema (ICD-10 - H34.8120) seeing eye dr 07/05/2025 Weakness (ICD-10 - R53.1) 07/05/2025 Hypertension (ICD-10 - I10) 07/05/2025 Anxiety disorder, unspecified (ICD-10 - F41.9) Plan Of Treatment Medication Medication Name Sig Start Date Stop Date Notes clonazePAM 1 MG 1 tablet Orally BID for 7 days 07/05/2025 Treatment Notes Assessment Notes Chronic kidney disease, stage 4 (severe) checking labs - was admitted for same Chronic kidney disease due to diabetes m ellitus checiing on labs Central retinal vein occlusi on, left eye, with macular edema seeing eye dr Pending Test Test Name Order Date High Sensitivity Troponin 07/05/2025 BNP 07/05/2025 MAGNESIUM 07/05/2025 SED RATE WESTERGREN 07/05/2025 Progress Notes * SVETLANARAYAlia KDOB:1945 (79 yo F)Acc No.[id number]:07/05/2025 UNLOCKED PROGRESS NOTE Progress Note Patient: Alia CUNNINGHAM Provider: Juan Davis ([facility])MD :1945 A ge:79 Y S ex:Female Date:07/05/2025 Address:[address] [place], [place] [id number] Check In:10:21 AM ESTCheck O ut:11:16 AM EST Subjective: * Chief Complaints: * 1 . Presents to office alone for [facility]- Dehydration. * HPI: G eneral: admitted for DREW and dehydration] Follow up oin GI for pancra stil wtih diarrhea - had stool tsts - didnt find anyghtin. * Medical History: H ypertension, Bilateral lower extremity edema, Body aches, URI (upper respiratory infection), Gastroenteritis due to norovirus, Nausea, Spleen disorder, Vertigo, Elevated lipase, Foot pain, left, Traumatic arthropathy, unspecified shoulder, Pain in right shoulder, Hypothyroidism, unspecified, Hyperlipidemia, unspecified, Dry cough, Influenza, Pharyngitis, Fatigue, Sinusitis, Thrombocytopenia, Pneumonia, Chest pain, Shingles, Syncope, Postoperative ecchymosis, Squamous cell carcinoma in situ (SCCIS) of skin, Atypical nevus, Unintentional weight loss, Weakness, Maxillary sinusitis, acute, Osteopenia, Chronic kidney disease, stage 3 (moderate). * Surgical History: h eart transplant 01/18/2006. * Hospitalization/Major Diagno stic Procedure: C ovid/ Chest discomfort 04/2023, ABD pain/dehydration 06/2023, Dehydration 06/25. * Family History: F ather: unknown. M other: unknown. B rother(s): unknown. S ister(s): unknown.? * Social History: T obacco Use: T obacco Use/Smoking P atient is a n onsmoker D rug/Alcohol: A DENVER-C (Standard) D id you have a drink containing alcohol in the past year? N o P oints 0 I nterpretation N egative * Medications: T aking Acetaminophen 325 MG Tablet 1-2 tablet as needed Orally every 4 hrs , Taking Alendronate Sodium 70 MG Tablet 1 tablet 30 minutes before the first food Orally once weekly , Taking Amitriptyline HCl 10 MG Tablet 1 tablet Orally at bedtime , Taking Aspirin 81(Aspirin) 81 MG Tablet Delayed Release 1 tablet Orally Once a day , Taking Blood Pressure Monitor - Device as directed , Taking Brimonidine Tartrate 0.2 % Solution 1 drop into affected eye Ophthalmic three times daily , Taking clonazePAM 1 MG Tablet 1 tablet Orally BID As needed, Taking Creon(Pancrelipase (Qme-Wqbf-Puvk)) 41366-[address]307 UNIT Capsule Delayed Release Particles take 3 capsules Orally three times daily , Taking Dorzolamide HCl 2 % Solution 1 drop into affected eye Ophthalmic twice daily , Taking Doxepin HCl 10 MG Capsule 1 capsule at bedtime Orally Once a day , Taking Ergocalciferol 1.25 MG (21510 UT) Capsule 1 capsule Orally once weekly , Taking Latanoprost 0.005 % Solution 1 drop into affected eye Ophthalmic at bedtime , Taking Loperamide HCl 2 MG Capsule 1 capsule Orally twice daily , Taking Magnesium Oxide 400 MG Tablet 1 tablet Orally BID , Taking Mycophenolate Mofetil 250 MG Capsule 1 capsule Orally Twice a day , Taking Simvastatin 20 MG Tablet take 1 tablet by mouth every evening , Taking Sodium Bicarbonate 650 MG Tablet 1 tablet Orally TID , Taking Synthroid(Levothyroxine Sodium) 112 MCG Tablet 1 tablet in the morning on an empty stomach Orally Once a day , Taking Tacrolimus 1 MG Capsule 1 capsule Orally BID , Taking Timolol Maleate 0.5 % Solution 1 drop into affected Ophthalmic twice daily , Medication List reviewed and reconciled with the patient * Allergies: Stephanie spence: anaphylaxis - [facility] Objective: * Vitals: W t:107.8lbs, Ht: 62 in, BP:164/80mm Hg, BMI:19.71Index, Ht-cm: 157.48 cm, Wt-k.9 kg. Assessment: * Assessment: 1. C hronic kidney disease, stage 4 (severe) - N18.4 (Primary) 2 . C hronic kidney disease due to diabetes mellitus - E11.22 3 . C entral retinal vein occlusion, left eye, with macular edema - H34.8120 4 . W eakness - R53.1 5. H ypertension - I10 6 . A nxiety disorder, unspecified - F41.9 Plan: * Treatment: 2. C hronic kidney disease due to diabetes mellitus Notes: checiing on labs 3. C entral retinal vein occlusion, left eye, with macular edema Notes: seeing eye dr 4. A nxiety disorder, unspecified Refill clonazePAM Tablet, 1 MG, 1 tablet, Orally, BID As needed, 7 days, 14 Tablet, Refills 1. * Preventive Medicine: Screenings/Counseling: F ALL RISK SCREENING Fall Risk Assessment: N o falls in the past year * * Electronic signature of King Davis MD, [phone] on 07/05/2025 at 11:35 AM EDT Sign off status: Pending Visit Status: Ashlee ELLISON (Check Out) * Provider: Juan Davis (TTC)MD Date: 07/05/2025 Generated for Lynne mosqueda/Hortensia/eTransmitting on: 07/05/2025 11:35 AM EDT History and Physical Notes * HPI (History of Present Illness) Category Sub-Category Detail Notes Category Not es General admitted for DREW and dehydration] Follow up oin GI for pancra stil wtih diarrhea - had stool tsts - didnt find anyghtin
--- OUTSIDE RECORDS SUMMARY | 2025-07-05 07:08 | XMS_ITS ---
Author Organization [facility] in [place] Address [address] [place] [address] Care Team Providers Care Probate Paralegal Name Role Phone King Davis Primary Care Provider Encounters Encounter Location Date Provider Diagnosis [facility] [address] [place] [address] 07/05/2025 King Davis Plan Of Treatment No Information Progress Notes * Alia HERRERA KDOB:1945 (79 yo F)Acc No.[id number]:07/05/2025 UNLOCKED PROGRESS NOTE Patient: Stephanie AQUINO Alia Khan :1945 A ge:79 Y S ex:Female Address:[address] [facility] [address] , [place] [address] * * Date:
--- OUTSIDE RECORDS SUMMARY | 2025-07-05 07:16 | XMS_ITS ---
Author Organization [facility] [place] Address [address] [place] [address] Care Team Providers Care Balance Wheel Screw Hole Tapper Name Role Phone King Davis Primary Care Provider [phone] REASON FOR VISIT office notes- CALL SATURDAY Encounters Encounter Location Date Provider Diagnosis [facility] [address] [facility] [address] 07/05/2025 King Davis Plan Of Treatment No Information Progress Notes * Alia HERRERA KDOB:1945 (79 yo F)Acc No.[id number]:07/05/2025 UNLOCKED PROGRESS NOTE Patient: Stephanie AQUINO Alia Khan :1945 A ge:79 Y S ex:Female Address:[address] [facility] , [place] [address] * * Date:
--- OUTSIDE RECORDS SUMMARY | 2025-07-05 11:36 | XMS_ITS | Encounter Summary ---
Author Organization [facility] Address [address], [address] [place] [address] Care Team Providers Care Bus And Trolley Inspecting Dispatcher Name Role Phone Vijay Davis MD Primary Care Provider [phone] Encounter Details Date Type Department Care Team ([facility] Contact Info) Description 06/22/2025 Results Follow-Up [facility] and Hypertension [address] [place] [address] [address] [place] [address] Shola Spivey MD [address] [facility] [address] [place] [address] Social History Tobacco Use Types Packs/Day Years Used Date Smoking Tobacco: Former Smokeless Tobacco: Former Quit: 12/20/1998 Alcohol Use Standard Drinks/Week Comments No 0 (1 standard drink = 0.6 oz pur e alcohol) [facility] Utilities Answer Date Recorded In the past 12 months has [employer], gas, oil, or water [employer] threatened to shut off services in your [...] were you homeless or living in a [place] facility (including now)? No 06/22/2025 Food Insecurity Answer [...] Description 07/20/2025 11:40 AM EDT Office Visit [facility] and Hypertension [address] [place] [address] Shola Spivey MD [address] [facility] [address] [place] [phone] Acute kidney injury superimposed on chronic kidney disease, 2 weeks f/u with labs/ US documented as of this encounter Visit Diagnoses Not on filedocumented in this encounter Care Teams Bus And Trolley Inspecting Dispatcher Relationship Specialty Start Date End Date Vijay Davis MD [address] [place] [address] PCP - General Family Medicine 05/28/25 documented as of this encounter
--- OUTSIDE RECORDS SUMMARY | 2025-07-05 11:36 | XMS_ITS | Encounter Summary ---
Author Organization [facility] Address [address] [place] [address] Care Team Providers Care Regional Tanker Truck Driver Name Role Phone Vijay Davis MD Primary Care Provider [phone] Sang Guerra MD Unavailable [phone] Source Comments In the event this information is protected by the Federal Confidentiality of Alcohol and Drug AbusePatient Records regulations: The Federal rules restrict any use of the information to criminally investigate or prosecute any alcohol or drug abuse patient.[facility] Encounter Details Date Type Department Care Team (Late st Contact Info) Description 10/23/2019 Abstract Dentistry [address] [phone] Conversion, [facility] Social History Tobacco Use Types [...] documented as of this encounter Care Teams Regional Tanker Truck Driver Relationship Specialty Start Date End Date Vijay Davis MD PCP - General Family Medicine 05/13/19 Sang Guerra MD [address] [facility] [place] [address] Referring Internal Medicine 01/18/25 documented as of this encounter
--- OUTSIDE RECORDS SUMMARY | 2025-07-05 11:36 | XMS_ITS | Clinical Summary ---
Author Organization [facility] Address [address] [place] [address] Care Team Providers Care Director Clinical Operations Name Role Phone Unavailable Primary Care Provider [...] Health Maintenance Due Date Last Done Comments Pneumococcal Vaccine: 65+ Ye ars (2 of 2 - PPSV23) 08/07/2018 08/07/2017, 09/29/2015 Influenza Vaccine (#1) 2025 2, 07/05/2021, 09/29/2020, Additional history exists
--- OUTSIDE RECORDS SUMMARY | 2025-07-05 11:36 | XMS_ITS | Encounter Summary ---
Author Organization [facility] Address [address] [place] [address] Care Team Providers Care Tour Production Supervisor Name Role Phone Vijay Davis MD Primary Care Provider [phone] Sang Guerra MD Unavailable [phone] Source Comments In the event this information is protected by the Federal Confidentiality of Alcohol and Drug AbusePatient Records regulations: The Federal rules restrict any use of the information to criminally investigate or prosecute any alcohol or drug abuse patient.[facility] Encounter Details Date Type Department Care Team (Late st Contact Info) Description 02/01/2020 Patient Msg Cardiology [address] [place], [place] [phone] Suzan Pickard, DRYING MACHINE OPERATOR.SOLID SURFACE FABRICATOR [address] [place] [address] returning call Social History Tobacco Use Types Packs/Day Years [...] documented as of this encounter Care Teams Tour Production Supervisor Relationship Specialty Start Date End Date Vijay Davis MD PCP - General Family Medicine 05/13/19 Sang Guerra MD [address] [facility] [place] [id number] Referring Internal Medicine 01/18/25 documented as of this encounter
--- OUTSIDE RECORDS SUMMARY | 2025-07-05 11:36 | XMS_ITS | Clinical Summary ---
Author Organization [facility] Address [address] [place] [address] Phone Care Team Providers Care Lamp Inspector Name Role Phone Vijay Davis MD Primary Care Provider [phone] Social History Tobacco Use Types Packs/Day Years Used Date Smoking Tobacco: Never Assessed Comments Unknown Sex and Gender Information Value Date Recorded Sex Assigned at Not on file Legal Sex Female 2:49 PM EDT Gender Identity Not on file Sexual Orientation Not on file Plan of Treatment Health Maintenance Due Date Last Done Comments Creatinine Level 1945 Echocardiogram 1945 Lipid Panel 1945 Medicare Annual Wellness Visit (AWV) 1945 Potassium Level 1945 Diabetes Screening 1962 Zoster Vaccines (1 of 2) 1994 Bone Density Scan 2009 RSV High Risk: (Elderly (60+) or Population) (1 - 1-dose 75+ series) 2019 COVID-19 Vaccine ( season) 2024 06/05/2022, 08/29/2021, 08/02/2021 Influenza Vaccine (#1) 2025 2, 07/05/2021, 09/29/2020, Additional history exists DTaP/Tdap/Td Vaccines [...] DUAL COMPLETE MEDICAID DUAL COMPLETE Care Teams Lamp Inspector Relationship Specialty Start Date End Date Vijay Davis MD [address] [place] [address] PCP - General Family Medicine 09/16/24
--- OUTSIDE RECORDS SUMMARY | 2025-07-05 11:36 | XMS_ITS | Encounter Summary ---
Author Organization [facility] Address [address], [address] [place] [address] Care Team Providers Care Learning Strategist Name Role Phone Vijay Davis MD Primary Care Provider [phone] Encounter Details Date Type Department Care Team ([facility] Contact Info) Description 06/22/2025 Telephone [facility] Kidney and Hypertension [address] [place] [address] Shola Spivey MD [address] [place] [address] Social History Tobacco Use Types Packs/Day Years Used Date Smoking Tobacco: Former Smokeless Tobacco: Former Quit: 12/20/1998 Alcohol Use Standard Drinks/Week Comments No 0 (1 standard drink = 0.6 oz pur e alcohol) [facility] Utilities Answer Date Recorded In the past 12 months has [employer], gas, oil, or water [employer] threatened to shut off services in your [...] any time in the past 12 m [facility], were you homeless or living in a jail (including now)? No 06/22/2025 Food Insecurity Answer [...] Description 07/20/2025 11:40 AM EDT Office Visit [facility] Kidney and Hypertension [address] [place] [address] Shola Spivey MD [address] [place] [address] Acute kidney injury superimposed on chronic kidney disease, 2 weeks f/u with labs/ US documented as of this encounter Visit Diagnoses Not on filedocumented in this encounter Care Teams Learning Strategist Relationship Specialty Start Date End Date Vijay Davis MD [address] [place] [address] PCP - General Family Medicine 05/28/25 documented as of this encounter
--- OUTSIDE RECORDS SUMMARY | 2025-07-05 11:36 | XMS_ITS | Encounter Summary ---
Author Organization [facility] Address [address], [address] [place] [address] Care Team Providers Care Animal Husbandry Technician Name Role Phone Vijay Davis MD Primary Care Provider [phone] Encounter Details Date Type Department Care Team (Latest Contact Info) Description 06/22/2025 Travel Social History Tobacco Use Types Packs/Day Years Used Date Smoking Tobacco: Former Smokeless Tobacco: Former Quit: 12/20/1998 Alcohol Use Standard Drinks/Week Comments No 0 (1 standard drink = 0.6 oz pur e alcohol) [facility] Utilities Answer Date Recorded In the [...] any time in the past 12 m [facility], were you homeless or living in a nursing home (including now)? No 06/22/2025 Food Insecurity [...] Functional Status documented as of this encounter Plan of Treatment Upcoming Encounters Date Type Department Care Team (Late st Contact Info) Description 07/20/2025 11:40 AM EDT Office Visit [facility] Kidney and Hypertension [address] [place] [address] Shola Spivey MD [address] [place] [address] [place] [address] Acute kidney injury superimposed on chronic kidney disease, 2 weeks f/u with labs/ US documented as of this encounter Visit Diagnoses Not on filedocumented in this encounter Additional Health Concerns Infection Onset Date Last Indicated Resolved Time C-diff Rule Out 06/22/2025 06/23/2025 06/23/2025 1 2:01 PM EDT documented as of this encounter Care Teams Animal Husbandry Technician Relationship Specialty Start Date End Date Vijay Davis MD [address] [place] [address] PCP - General Family Medicine 05/28/25 documented as of this encounter
--- OUTSIDE RECORDS SUMMARY | 2025-07-05 11:37 | XMS_ITS | Encounter Summary ---
Author Organization [facility] Address [address] [place] [address] Care Team Providers Care Store Leader Name Role Phone Vijay Davis MD Primary Care Provider + Sang Guerra MD Unavailable [phone] Source Comments In the event this information is protected by the Federal Confidentiality of Alcohol and Drug AbusePatient Records regulations: The Federal rules restrict any use of the information to criminally investigate or prosecute any alcohol or drug abuse patient.[facility] Encounter Details Date Type Department Care Team (Late st Contact Info) Description 01/12/2025 Ophth Exam Ophthalmology [address] [address] Roosevelt Lopez MD [address] [place] [address] Social History Tobacco Use Types Packs/Day Years [...] N ot on file 11/06/2020 Data from: https://www.neighborhoodatlas.medicine.[facility]/. Last address used for calculation Not [...] documented as of this encounter Care Teams Store Leader Relationship Specialty Start Date End Date Vijay Davis MD PCP - General Family Medicine 05/13/19 Sang Guerra MD [address] [place] [address] Referring Internal Medicine 01/18/25 documented as of this encounter
--- OUTSIDE RECORDS SUMMARY | 2025-07-05 11:37 | XMS_ITS | Encounter Summary ---
Author Organization [facility] Address [address] [place] [address] Care Team Providers Care Conference Coordinator Name Role Phone Vijay Davis MD Primary Care Provider [phone] Reason for Visit * Reason Comments Med Refill Encounter Details Date Type Department Care Team (Late st Contact Info) Description 02/22/[address] [address] Jameel Daly MD [address] [facility] [address] [facility] [place] [address] Social History Tobacco Use Types Packs/Day Years [...] Heterosexual or Straight 08/2025 2:36 PM EDT COVID-19 Exposure Response Date Recorded In the last 10 days, have yo u been in contact with someone who was confirmed or suspected to have Coronavirus/COVID-19? No / Unsure 02/11/2023 4:25 PM EDT documented as of this encounter Plan of Treatment Upcoming Encounters Date Type Department Care Team (Late st Contact Info) Description 09/17/2025 11:00 AM EDT Office Visit [facility] [address] [place] [address] Jameel Daly MD [address] [facility] [address] [facility] [place] [address] documented as of this encounter Visit Diagnoses Not on filedocumented in this encounter Additional Health Concerns Infection Onset Date Last Indicated Resolved Time C. difficile Rule-Out 01/08/2025 01/09/20252024 2:48 PM EST documented as of this encounter Care Teams Conference Coordinator Relationship Specialty Start Date End Date Vijay Davis MD [address] [facility] [place] [address] [address] PCP - General 08/12/22 documented as of this encounter
--- OUTSIDE RECORDS SUMMARY | 2025-07-05 11:37 | XMS_ITS | Encounter Summary ---
Author Organization [facility] Address [address] [place] [address] Care Team Providers Care Cathead Operator Name Role Phone Vijay Davis MD Primary Care Provider + Sang Guerra MD Unavailable [phone] Source Comments In the event this information is protected by the Federal Confidentiality of Alcohol and Drug AbusePatient Records regulations: The Federal rules restrict any use of the information to criminally investigate or prosecute any alcohol or drug abuse patient.[facility] Encounter Details Date Type Department Care Team (Late st Contact Info) Description 05/08/2022 Lab Requisition [facility] [address] [place] [address] Sandrita Santana, FOOD SERVICE CASHIER.KALSOMINER [address] [place] [address] Heart transplant status (HCC) Social [...] N ot on file 11/06/2020 Data from: https://www.neighborhoodatlas.medicine.[facility]/. Last address used for calculation Not [...] - 20.0 ng/mL 05/08/2022 12:51 PM EDT [facility] Comment: These reference ranges [...] situation. Test performed by chemiluminescent immunoassay using [employer]. Blood BLOOD SPECIMEN / Unknown 05/07/2022 9:31 AM EDT 05/08/2022 12:08 AM EDT us Sandrita Santana FOOD SERVICE CASHIER.[facility] LABORATORY Final Re sult [facility] [address] [place] [address], documented in this encounter Visit Diagnoses Diagnosis Heart transplant status (HCC) documented in this encounter Additional Health Concerns Infection Onset Date Last Indicated Resolved Time COVID-19 Rule-Out 01/15/2025 01/15/2025 01/15/2025 10:01 AM EST Influenza 01/15/2025 01/15/2025 01/29/2025 8:51 PM EST C. difficile 01/20/2025 01/20/2025 02/19/2025 8:51 PM EDT Norovirus 01/20/2025 01/20/2025 documented as of this encounter Care Teams Cathead Operator Relationship Specialty Start Date End Date Vijay Davis MD PCP - General Family Medicine 05/13/19 Sang Guerra MD [address] [place], [place] [phone] Referring Internal Medicine 01/18/25 documented as of this encounter
--- OUTSIDE RECORDS SUMMARY | 2025-07-05 11:37 | XMS_ITS | Encounter Summary ---
Author Organization [facility] Address [address] [place] [address] Care Team Providers Care Messenger Office Name Role Phone Vijay Davis MD Primary Care Provider [phone] Sang Guerra MD Unavailable [phone] Source Comments In the event this information is protected by the Federal Confidentiality of Alcohol and Drug AbusePatient Records regulations: The Federal rules restrict any use of the information to criminally investigate or prosecute any alcohol or drug abuse patient.[facility] Encounter Details Date Type Department Care Team (Late st Contact Info) Description 04/12/2022 Patient [facility] [address] [id number] Provider, [facility] upcoming appts Social History Tobacco [...] N ot on file 11/06/2020 Data from: https://www.neighborhoodatlas.[facility]/. Last address used for calculation Not on [...] documented as of this encounter Care Teams Messenger Office Relationship Specialty Start Date End Date Vijay Davis MD PCP - General Family Medicine 05/13/19 Sang Guerra MD [address] [place] [address] Referring Internal Medicine 01/18/25 documented as of this encounter
--- OUTSIDE RECORDS SUMMARY | 2025-07-05 11:37 | XMS_ITS | Encounter Summary ---
Author Organization [facility] Address [address] [place] [address] Care Team Providers Care Regional Airline Pilot Name Role Phone Fausto Garcia DO Primary Care Provider Vijay Davis MD Primary Care Provider + Sang Guerra MD Unavailable [phone] Source Comments In the event this information is protected by the Federal Confidentiality of Alcohol and Drug AbusePatient Records regulations: The Federal rules restrict any use of the information to criminally investigate or prosecute any alcohol or drug abuse patient.[facility] Encounter Details Date Type Department Care Team (Late st Contact Info) Description 03/16/2017 Get Medical Advice Infectious Disease [address] [place] [address] Noa Waterman MD [address] [place] [address] RE: Upcoming Appointment Question Social [...] as of this encounter Care Teams Regional Airline Pilot Relationship Specialty Start Date End Date Fausto Garcia DO PCP - General Family Medicine 11/19/16 05/12/19 Vijay Davis MD PCP - General Family Medicine 05/13/19 Sang Guerra MD [address] [facility] [place] [address] Referring Internal Medicine 01/18/25 documented as of this encounter
--- OUTSIDE RECORDS SUMMARY | 2025-07-05 11:37 | XMS_ITS | Encounter Summary ---
Author Organization [facility] Address [facility] [place] [address] Care Team Providers Care Woodwind Instrument Repairer Name Role Phone Vijay Davis MD Primary Care Provider [phone] Sang Guerra MD Unavailable [phone] Source Comments In the event this information is protected by the Federal Confidentiality of Alcohol and Drug AbusePatient Records regulations: The Federal rules restrict any use of the information to criminally investigate or prosecute any alcohol or drug abuse patient.[facility] Encounter Details Date Type Department Care Team (Late st Contact Info) Description 08/03/2022 Lab Requisition [facility] Laboratory [facility] [place] [address] Lioda Mathias APRN.SCOOP FILLER [address] [place] [address] Heart transplant status (HCC) Social [...] ot on file 11/06/2020 Data from: https://www.neighborhoodatlas.medicine.[facility]/. Last address used for calculation Not on [...] - 20.0 ng/mL 08/04/2022 3:22 PM EDT [facility] Comment: These reference ranges [...] situation. Test performed by chemiluminescent immunoassay using [employer]. Blood BLOOD SPECIMEN / Unknown 08/02/2022 8:00 AM EDT 08/03/2022 2:09 AM EDT us Loida Mathias APRN.SCOOP FILLER LABORATORY Fi nal Result [facility] [address] documented in this encounter Visit Diagnoses Diagnosis Heart transplant status (HCC) documented in this encounter Additional Health Concerns Infection Onset Date Last Indicated Resolved Time COVID-19 Rule-Out 01/15/2025 01/15/2025 01/15/2025 10:01 AM EST Influenza 01/15/2025 01/15/2025 01/29/2025 8:51 PM EST C. difficile 01/20/2025 01/20/2025 02/19/2025 8:51 PM EDT Norovirus 01/20/2025 01/20/2025 documented as of this encounter Care Teams Woodwind Instrument Repairer Relationship Specialty Start Date End Date Vijay Davis MD PCP - General Family Medicine 05/13/19 Sang Guerra MD [address] [place] [id number] Referring Internal Medicine 01/18/25 documented as of this encounter
--- OUTSIDE RECORDS SUMMARY | 2025-07-05 11:37 | XMS_ITS | Encounter Summary ---
Author Organization [facility] Address [address] [place] [address] Care Team Providers Care Electronic Sensing Equipment Assembler Name Role Phone Vijay Davis MD Primary Care Provider [phone] Sang Guerra MD Unavailable [phone] Source Comments In the event this information is protected by the Federal Confidentiality of Alcohol and Drug AbusePatient Records regulations: The Federal rules restrict any use of the information to criminally investigate or prosecute any alcohol or drug abuse patient.[facility] Encounter Details Date Type Department Care Team (Late st Contact Info) Description 04/10/2022 Lab Requisition [facility] Laboratory [address] [place] [address] Sandrita Santana, PROPOSAL DIRECTOR.ORACLE SOA ARCHITECT [address] [place] [address] Heart transplant status (HCC) Social [...] file 11/06/2020 Data from: https://www.neighborhoodatlas.medicine.[facility]/. Last address used for calculation [...] 04/10/2022 12:49 AM EDT us Sandrita Santana APRN.ORACLE SOA ARCHITECT LABORATORY Final Re sult Performing Organization Address [facility] Co de Phone Number [facility] [place] [address], [place] * LAVENDER TOP EXTRA TUBE (04/09/2022 7:50 AM EDT) Blood BLOOD SPECIMEN / Unknown 04/09/2022 7:50 AM EDT 04/10/2022 12:49 AM EDT us Sandrita Santana APRN.ORACLE SOA ARCHITECT LABORATORY Final Re sult Performing Organization Address [facility] de Phone Number [facility] [place] [address], [place] * TACROLIMUS/FK-506 BL (04/09/2022 7:50 AM EDT) Pathologist [facility] Tacrolimus/FK506 9.9 5.0 - 20.0 ng/mL 04/10/2022 5:16 PM EDT [facility] Comment: These reference ranges are [...] situation. Test performed by chemiluminescent immunoassay using [employer]. Blood BLOOD SPECIMEN / Unknown 04/09/2022 7:50 AM EDT 04/10/2022 12:49 AM EDT us Sandrita Santana PROPOSAL DIRECTOR.ORACLE SOA ARCHITECT LABORATORY Final Re sult [facility] [address] [facility] [address] [place] [address], documented in this encounter Visit Diagnoses Diagnosis Heart transplant status (HCC) documented in this encounter Additional Health Concerns Infection Onset Date Last Indicated Resolved Time COVID-19 Rule-Out 01/15/2025 01/15/2025 01/15/2025 10:01 AM EST Influenza 01/15/2025 01/15/2025 01/29/2025 8:51 PM EST C. difficile 01/20/2025 01/20/2025 02/19/2025 8:51 PM EDT Norovirus 01/20/2025 01/20/2025 documented as of this encounter Care Teams Electronic Sensing Equipment Assembler Relationship Specialty Start Date End Date Vijay Davis MD PCP - General Family Medicine 05/13/19 Sang Guerra MD [address] [place], [place] [address] Referring Internal Medicine 01/18/25 documented as of this encounter
--- OUTSIDE RECORDS SUMMARY | 2025-07-05 11:37 | XMS_ITS | Encounter Summary ---
Author Organization [facility] Address [address] [address] [place] [address] Care Team Providers Care Handling Tech Name Role Phone Vijay Davis MD Primary Care Provider [phone] Encounter Details Date Type Department Care Team (Late st Contact Info) Description 05/28/2025 Orders Only [facility] [address] [address] ProviderAriel MD Social History Tobacco Use Types Packs/Day Years [...] shut off services in your home? No 05/28/2025 Hunger Vital Sign Answer Date Recorded Within the past 12 months, y ou worried that your food would run out before you got the money to buy more. Never true 05/28/20 25 Within the past 12 months, t he food you bought just didn't last and you didn't have money to get more. Never true 05/28/2025 PRAPARE - Transportation Answer Date Re corded In the past 12 months, has l ack of transportation kept you from medical appointments or from getting medications? No 05/03 In the past 12 months, has l ack of transportation kept you from meetings, work, or from getting things needed for daily living? No 05/28/2025 Housing Stability Vital Sign Answer Dilshad e Recorded In the last 12 months, was t here a time when you were not able to pay the mortgage or rent on time? No 05/28/2025 In the past 12 months, how m any times have you moved where you were living? 1 05/28/2025 At any time in the past 12 m [facility], were you homeless or living in a assisted (including now)? No 05/28/2025 Food Insecurity Answer Date Recorded Within the past 12 months, y ou worried that your food would run out before you got the money to buy more. 1 05/28/2025 Within the past 12 months, t he food you bought just didn't last and you didn't have money to get more. 1 05/28/2025 Interpersonal Safety Domain Source: IP Abuse Scr eening Answer Date Recorded Physical abuse Denies 05/28/2025 Verbal abuse Denies 05/28/2025 Emotional abuse Denies 05/28/2025 Financial abuse Denies 05/28/2025 Sexual abuse Denies 05/28/2025 Comments No Sex and Gender Information Value Date Recorded Sex Assigned at Not on file Legal Sex Female 9:18 PM EST Gender Identity Not on file Sexual Orientation Not on file documented as of this encounter Plan of Treatment Upcoming Encounters Date Type Department Care Team (Late st Contact Info) Description 07/20/2025 11:40 AM EDT Office Visit [facility] Kidney and Hypertension [address] [place] [address] Shola Spivey MD [address] [place] [address] Acute kidney injury superimposed on chronic kidney disease, 2 weeks f/u with labs/ US documented as of this encounter Procedures Procedure Name Priority Date/Time Associated Diagnosis Comments COMPREHENSIVE METABOLIC PANEL Routine 05/25/2025 12:43 PM EDT BASIC METABOLIC PANEL Routine 03/15/2025 12:44 PM EDT documented in this encounter Results * Comprehensive Metabolic Panel (05/25/2025 12:43 PM EDT) Blood BLOOD SPECIMEN / Unknown us Historical Provider CHEMISTRY ORDERABLES Yina l Result * Basic Metabolic Panel (03/15/2025 12:44 PM EDT) Blood BLOOD SPECIMEN / Unknown us Historical Provider CHEMISTRY ORDERABLES Yina l Result documented in this encounter Visit Diagnoses Not on filedocumented in this encounter Additional Health Concerns Infection Onset Date Last Indicated Resolved Time C-diff Rule Out 06/22/2025 06/23/2025 06/23/2025 1 2:01 PM EDT documented as of this encounter Care Teams Handling Tech Relationship Specialty Start Date End Date Vijay Davis MD [address] [place] [address] PCP - General Family Medicine 05/28/25 documented as of this encounter
--- OUTSIDE RECORDS SUMMARY | 2025-07-05 11:37 | XMS_ITS | Encounter Summary ---
Author Organization [facility] Address [address] [facility] [place] [address] Care Team Providers Care Rent Control Office Manager Name Role Phone Vijay Davis MD Primary Care Provider [phone] Encounter Details Date Type Department Care Team ([facility] Contact Info) Description 06/07/2025 Results Follow-Up Darnell Apple MD [address] [place] [phone] Darnell Apple MD [address] [facility], [place] [address] Social History Tobacco Use Types Packs/Day Years Used Date Smoking Tobacco: Former Smokeless Tobacco: Former Quit: 12/20/1998 Alcohol Use Standard Drinks/Week Comments No 0 (1 standard drink = 0.6 oz pur e alcohol) [facility] Utilities Answer Date Recorded In the past 12 months has e [employer], gas, oil, or water [employer] threatened to shut off services in your [...] time in the past 12 m [facility], were you homeless or living in a retirement (including now)? No 05/28/2025 Food Insecurity Answer [...] Description 07/20/2025 11:40 AM EDT Office Visit [facility] Kidney and Hypertension [address] [place] [address] Shola Spievy MD [address] [place] [address] [place] [address] Acute kidney injury superimposed on chronic kidney disease, 2 weeks f/u with labs/ US documented as of this encounter Visit Diagnoses Not on filedocumented in this encounter Additional Health Concerns Infection Onset Date Last Indicated Resolved Time C-diff Rule Out 06/22/2025 06/23/2025 06/23/2025 1 2:01 PM EDT documented as of this encounter Care Teams Rent Control Office Manager Relationship Specialty Start Date End Date Vijay Davis MD [address] [place] [address] PCP - General Family Medicine 05/28/25 documented as of this encounter
--- OUTSIDE RECORDS SUMMARY | 2025-07-05 11:37 | XMS_ITS | Encounter Summary ---
Author Organization [facility] Address [address] [place] [address] Care Team Providers Care Emergency Department Clinician Name Role Phone Vijay Davis MD Primary Care Provider [phone] Sang Guerra MD Unavailable [phone] Source Comments In the event this information is protected by the Federal Confidentiality of Alcohol and Drug AbusePatient Records regulations: The Federal rules restrict any use of the information to criminally investigate or prosecute any alcohol or drug abuse patient.[facility] Encounter Details Date Type Department Care Team (Late st Contact Info) Description 05/27/2024 Patient [facility] [address] [phone] Provider, [facility] Heart Transplant Office updates Social History [...] N ot on file 11/06/2020 Data from: https://www.neighborhoodatlas.[facility]/. Last address used for calculation Not [...] documented as of this encounter Care Teams Emergency Department Clinician Relationship Specialty Start Date End Date Vijay Davis MD PCP - General Family Medicine 05/13/19 Sang Guerra MD [address] [place] [address] Referring Internal Medicine 01/18/25 documented as of this encounter
--- OUTSIDE RECORDS SUMMARY | 2025-07-05 11:37 | XMS_ITS | Clinical Summary ---
Author Organization [facility] Address [address], [address] [place] [address] Care Team Providers Care Script Editor Name Role Phone Vijay Davis MD Primary Care Provider [phone] Allergies Active Allergy Reactions Criticality Noted Date Comments Ciprofloxacin Hives Low 06/07/2023 Morphine Other (See Comments) Low 08/11/2013 Pt unable to sleep Oxycodone-Acetaminophen Nausea And Vomiting Low Promethazine Hcl Other (See Comments) High 7 hallucinations Medications tacrolimus (PROGRAF) 0.5 MG capsuleIndicati ons:for a total of 1mg/daily Take 1 capsule by mouth 2 times daily Indications: for a total of 1mg/daily Active simvastatin (ZOCOR) 20 MG tablet Take 1 tablet by mouth nightly Active cycloSPORINE (RESTASIS) 0.05 % ophthalmic emulsion Place 1 drop into the left eye in the morning and at bedtime Active pramipexole (MIRAPEX) 0.25 MG tablet Take 1 tablet by mouth nightly Active alendronate (FOSAMAX) 70 MG tablet Take 1 tablet by mouth every other day 12/23/19 17 Active mycophenolate (CELLCEPT) 250 MG capsule Take 2 capsules by mouth 2 times daily 60 capsule 12/28/19 17 Active levothyroxine (SYNTHROID) 100 MCG tablet Take 1 tablet by mouth every morning (before breakfast) Active aspirin 81 MG EC tablet Take 1 tablet by mouth daily Active carvedilol (COREG) 12.5 MG tablet Take 1 tablet by mouth 2 times daily (with meals) Active VITAMIN D PO Take 1 tablet by mouth daily Unsure of dose Active Mcdaniels-3 Fatty Acids (FISH OIL) 600 MG CAPS Take 1 tablet by mouth Daily Active Multiple Vitamin (MULTIVITAMIN ADULT PO) Take 1 tablet by mouth daily Active vitamin C (ASCORBIC ACID) 500 MG tablet Take 1 tablet by mouth daily Active magnesium oxide (MAG-OX) 400 MG tablet Take 1 tablet by mouth in the morning, at noon, and at bedtime 05/30/20 25 Active clonazePAM (KLONOPIN) 0.5 MG tabletIndicatio ns:Anxiety Take 1 tablet by mouth 2 times daily. 05/30/20 25 Active CREON 63925-39155 units delayed release capsule TAKE 3 CAPSULES BY MOUTH 3 TIMES A DAY FOR 30 DAYS 05/28/20 25 Active sodium bicarbonate 650 MG tablet Take 2 tablets by mouth 3 times daily 180 tablet 3 06/18/20 25 Active oyster calcium (OYST-SONA) 500 MG TABS Take 1 tablet by mouth in the morning and at bedtime 60 tablet 3 06/18/20 25 Active loperamide (IMODIUM) 2 MG capsule Take 1 capsule by mouth 4 times daily as needed for Diarrhea 40 capsule 06/26/20 25 025 Active lactobacillus (CULTURELLE) capsule Take 1 capsule by mouth daily (with breakfast) 90 capsule 06/27/20 25 Active Vitamin D, Ergocalciferol, 34229 units CAPS Take 50,000 Units by mouth once a week for 12 doses 12 capsule 06/30/20 25 025 Active cholestyramine light 4 g packet Take 1 packet by mouth 2 times daily 60 packet 06/26/20 25 Active lipase-protease -amylase (CREON) 38888-178413 units CPEP delayed release capsule Take 4 capsules by mouth 3 times daily (with meals) 025 Discontinued(St op Taking at Discharge) loperamide (IMODIUM) 2 MG capsule Take 1 capsule by mouth 4 times daily as needed for Diarrhea 05/30/20 25 025 cholestyramine light 4 g packet Take 1 packet by mouth 2 times daily 60 packet 06/26/20 25 025 Discontinued lactobacillus (CULTURELLE) capsule Take 1 capsule by mouth daily (with breakfast) 90 capsule 06/27/20 25 025 Discontinued loperamide (IMODIUM) 2 MG capsule Take 1 capsule by mouth 4 times daily as needed for Diarrhea 40 capsule 06/26/20 25 025 Discontinued Ergocalciferol (VITAMIN D) 32080 units CAPS Take 50,000 Units by mouth once a week for 12 doses 12 capsule 06/30/20 25 025 Discontinued Active Problems Problem Noted Date Diagnosed Date Moderate malnutrition 06/23/2025 CKD (chronic kidney disease), stage IV Hyperphosphatemia 06/23/2025 Hypocalcemia 06/22/2025 Hydronephrosis of right kidney 05/29/2025 History of heart transplant 05/29/2025 Acute kidney injury superimposed on CKD 05/28/20 Mood disorder due to a general medical condition 2016 Generalized anxiety disorder 2016 Pancreatic insufficiency 12/26/2016 Diverticulosis of large intestine without hemorr magalis 12/24/2016 Duodenitis 12/24/2016 Heart transplanted 12/21/2016 Acute renal failure 12/21/2016 Depression with suicidal ideation 12/21/2016 Metabolic acidosis 12/21/2016 Hypokalemia 12/21/2016 Leukocytosis 12/21/2016 Hypomagnesemia 12/21/2016 Anemia 12/21/2016 Diarrhea in adult patient 12/21/2016 Overview (12/21/2016): Diarrhea for 18 months of unknown etiology Resolved Problems Problem Noted Date Diagnosed Date Resolved Date Severe malnutrition 12/23/2016 06/23/20 25 Encounters Date Type Department Care Team Description 06/22/2025 3:44 PM EDT - 06/26/2025 2:40 PM EDT Hospital Encounter [facility] [address] [place] [phone] Komal Clement MD Iacob, Stefan, MD Hypocalcemia (Primary Dx); Hypomagnesemia; Acute kidney injury superimposed on CKD; Skin lesion of right leg; Acute renal failure, unspecified acute renal failure type; Anemia, unspecified type Discharge Disposition: Home or Self Care 06/22/2025 1:47 PM EDT - 06/22/2025 3:43 PM EDT Hospital Encounter [facility] [address] [place] [id number] CKD (chronic kidney disease) stage 5, GFR less than 15 ml/min (HCC); Hyperkalemia; Metabolic acidosis; Hypertensive renal disease, stage 1 through stage 4 or unspecified chronic kidney disease Discharge Disposition: Home or Self Care 06/22/2025 1:40 PM EDT - 06/24/2025 11:59 PM EDT Hospital Encounter [address] [address] CKD (chronic kidney disease) stage 5, GFR less than 15 ml/min (HCC); Hyperkalemia; Metabolic acidosis; Hypertensive renal disease, stage 1 through stage 4 or unspecified chronic kidney disease Discharge Disposition: Home or Self Care 06/22/2025 Travel 06/22/2025 Results Follow-Up [facility] [address] [place] [address] Shola Spivey MD 06/22/2025 [facility] [address] [place] [address] Shola Spivey MD 06/18/2025 11:40 AM EDT Office Visit [facility] [address] [place] [address] Shola Spivey MD DREW (acute kidney injury) (Primary Dx); CKD (chronic kidney disease) stage 5, GFR less than 15 ml/min (HCC); Hyperkalemia; Metabolic acidosis; Hypertensive renal disease, stage 1 through stage 4 or unspecified chronic kidney disease 06/18/2025 Telephone [facility] and Hypertension [address] [place] [address] Shola Spivey MD OTHER 06/07/2025 9:29 AM EDT - 06/07/2025 11:59 PM EDT Hospital Encounter [address] [address] Acute kidney injury superimposed on chronic kidney disease Discharge Disposition: Home or Self Care 06/07/2025 Results Follow-Up Darnell Apple MD [address] [place] [address] [place] [address] Darnell Apple MD 05/28/2025 1:08 PM EDT - 05/30/2025 12:25 PM EDT Hospital Encounter [facility] [address] [phone] Darnell Apple MD Acute kidney injury superimposed on chronic kidney disease (Primary Dx); Anxiety; Acute renal failure superimposed on chronic kidney disease, unspecified acute renal failure type, unspecified CKD stage Discharge Disposition: Home or Self Care 05/28/2025 Travel 05/28/2025 Orders Only [facility] [address] [place] [address] ProviderAriel MD 05/28/2025 Abstract [facility] [address] [place] [address] Madeleine Serna MA 05/28/2025 Telephone [facility] [address] [place] [address] Madeleine Serna MA NEPHROLOGY REFERRAL from Last 3 Months Social History Tobacco Use Types Packs/Day Years Used Date Smoking Tobacco: Former Smokeless Tobacco: Former Quit: 12/20/1998 Tobacco Cessation:Counseling Given: No Alcohol Use Standard Drinks/Week Comments No 0 (1 standard drink = 0.6 oz pur e alcohol) [facility] Utilities Answer Date Recorded In the past 12 months has th e [employer], gas, oil, or water [employer] threatened to shut off services in your [...] any time in the past 12 m [facility], were you homeless or living in a residential (including now)? No 06/22/2025 Food Insecurity Answer [...] Mass Index 18.38 06/23/2025 8:26 AM EDT Plan of Treatment Upcoming Encounters Date Type Department Care Team (Late st Contact Info) Description 07/20/2025 11:40 AM EDT Office Visit [facility]ney and Hypertension [address] [place] [address] Shola Spivey MD [address] [place] [address] [address] [place] [address] Acute kidney injury superimposed on chronic kidney disease, 2 weeks f/u with labs/ US Health Maintenance Due Date Last Done Comments Lipids 1954 Depression Monitoring 1956 Shingles vaccine (1 of 2) 1963 DEXA (modify frequency per FRAX score) 1999 Respiratory Syncytial Virus (RSV) or age 60 yrs+ (1 - 1-dose 75+ series) 2019 COVID-19 Vaccine ( - season) 2024 06/05/2022, 08/29/2021, 08/02/2021 Annual Wellness Visit (Medicare Advantage) 12/02/2024 Flu vaccine (#1) 07/02/2025 09/28/2023, , 07/05/2021, Additional history exists DTaP/Tdap/Td vaccine (2 - Tdap) 02/09/2031 02/09/2021 Pneumococcal 50+ years Vaccine Completed 05/20/2023, 08/07/2017, 09/29/2015, Additional history exists Hepatitis A vaccine Aged Out No longe r eligible based on patient's age to complete this topic Hepatitis B vaccine Aged Out No longe r eligible based on patient's age to complete this topic Hib vaccine Aged Out No longer eligi ble based on patient's age to complete this topic Meningococcal (ACWY) vaccine Aged Out No longer eligible based on patient's age to complete this topic Meningococcal B vaccine Aged Out No l onger eligible based on patient's age to complete this topic Polio vaccine Aged Out No longer elig ible based on patient's age to complete this topic Procedures Procedure Name Priority Date/Time Associated Diagnosis Comments EKG RHYTHM STRIP Routine 06/26/2025 6:00 AM EDT HEPATIC FUNCTION PANEL Routine 5:55 AM EDT MAGNESIUM Routine 06/26/2025 5:55 AM EDT PHOSPHORUS Routine 06/26/2025 5:55 AM EDT BASIC METABOLIC PANEL Routine 06/26/2025 5:55 AM EDT CBC WITH AUTO DIFFERENTIAL Routine 06/26/2025 5:55 AM EDT EKG RHYTHM STRIP Routine 06/26/2025 12:01 AM EDT BASIC METABOLIC PANEL Routine 06/25/2025 6:30 AM EDT CBC WITH AUTO DIFFERENTIAL Routine 06/25/2025 6:30 AM EDT EKG RHYTHM STRIP Routine 06/25/2025 6:00 AM EDT CALCIUM, IONIZED STAT 06/24/2025 10:45 AM EDT ALBUMIN Routine 06/24/2025 8:01 AM EDT CELIAC REFLEX PANEL Routine 06/24/2025 8 :01 AM EDT MAGNESIUM Routine 06/24/2025 6:00 AM EDT BASIC METABOLIC PANEL Routine 06/24/2025 6:00 AM EDT CBC WITH AUTO DIFFERENTIAL Routine 06/24/2025 6:00 AM EDT EKG RHYTHM STRIP Routine 06/24/2025 12:00 AM EDT HEMOGLOBIN AND HEMATOCRIT Routine 06/23/2025 4:40 PM EDT MAGNESIUM Routine 06/23/2025 4:40 PM EDT EKG RHYTHM STRIP Routine 06/23/2025 3:00 PM EDT CHLORIDE, URINE, RANDOM [employer] Label Print 06/23/2025 2:10 PM EDT SODIUM, URINE, RANDOM [employer] Label Print 06/23/2025 2:10 PM EDT FECAL FAT, QUALITATIVE STAT 10:40 AM EDT BLOOD OCCULT STOOL SCREEN #1 STAT 06/23/2025 10:40 AM EDT GIARDIA ANTIGEN STAT 06/23/2025 10:40 AM EDT C DIFF TOXIN/ANTIGEN STAT 06/23/2025 10:40 AM EDT GASTROINTESTINAL PANEL, MOLECULAR STAT 06/23/2025 10:40 AM EDT TYPE AND SCREEN Routine 06/23/2025 7:30 AM EDT EKG RHYTHM STRIP Routine 06/23/2025 7:00 AM EDT RETICULOCYTES Routine 06/23/2025 6:15 AM EDT IRON AND TIBC Routine 06/23/2025 6:15 AM EDT FERRITIN Routine 06/23/2025 6:15 AM EDT VITAMIN D 25 HYDROXY Routine 06/23/2025 6:15 AM EDT PHOSPHORUS Routine 06/23/2025 6:15 AM EDT COMPREHENSIVE METABOLIC PANEL W/ REFLEX TO MG FOR LOW K Routine 06/23/2025 6:15 AM EDT CBC WITH AUTO DIFFERENTIAL Routine 06/23/2025 6:15 AM EDT EKG RHYTHM STRIP Routine 06/23/2025 6:[address] FEMUR RIGHT WO CONTRAST STAT 06/22/2025 9:03 PM EDT EKG RHYTHM STRIP Routine 06/22/2025 8:00 PM EDT TSH REFLEX TO FT4 Routine 06/22/2025 6:2 3 PM EDT AMYLASE STAT 06/22/2025 6:23 PM EDT LIPASE STAT 06/22/2025 6:23 PM EDT TROPONIN STAT 06/22/2025 6:23 PM EDT CALCIUM, IONIZED STAT 06/22/2025 4:30 PM EDT COMPREHENSIVE METABOLIC PANEL STAT 06/22/2025 4:05 PM EDT PTH, INTACT STAT 06/22/2025 4:05 PM EDT TROPONIN STAT 06/22/2025 4:05 PM EDT PHOSPHORUS STAT 06/22/2025 4:05 PM EDT MAGNESIUM STAT 06/22/2025 4:05 PM EDT CBC WITH AUTO DIFFERENTIAL STAT 06/22/2025 4:05 PM EDT EKG 12-LEAD STAT 06/22/2025 3:53 PM EDT US RENAL COMPLETE Routine 06/22/2025 2:0 5 PM EDT CKD (chronic kidney disease) stage 5, GFR less than 15 ml/min ([facility]) Hyperkalemia Metabolic acidosis Hypertensive renal disease, stage 1 through stage 4 or unspecified chronic kidney disease MICROSCOPIC URINALYSIS Routine 2:03 PM EDT IRON AND TIBC Routine 06/22/2025 2:03 PM EDT URINALYSIS Routine 06/22/2025 2:03 PM EDT CKD [...] stage 4 or unspecified chronic kidney disease HEMOGLOBIN AND HEMATOCRIT Routine 06/22/2025 2:03 PM [...] stage 5, GFR less than 15 ml/min ([facility]) Hyperkalemia Metabolic acidosis Hypertensive renal disease, stage 1 through stage 4 or unspecified chronic kidney disease COMPREHENSIVE METABOLIC PANEL Routine 06/07/2025 9:35 AM EDT Acute kidney injury superimposed on chronic kidney disease CBC WITH AUTO DIFFERENTIAL Routine 05/30/2025 5:55 AM EDT COMPREHENSIVE METABOLIC PANEL W/ REFLEX TO MG FOR LOW K Routine 05/30/2025 5:55 AM EDT BASIC METABOLIC PANEL Routine 05/29/2025 5:10 PM EDT CBC WITH AUTO DIFFERENTIAL Routine 05/29/2025 5:40 AM EDT COMPREHENSIVE METABOLIC PANEL W/ REFLEX TO MG FOR LOW K Routine 05/29/2025 5:40 AM EDT PULSE OXIMETRY SPOT CHECK Routine 05/28/2025 5:19 PM EDT LIPASE STAT 05/28/2025 2:45 PM EDT MAGNESIUM STAT 05/28/2025 2:45 PM EDT COMPREHENSIVE METABOLIC PANEL STAT 05/28/2025 2:45 PM EDT CBC WITH AUTO DIFFERENTIAL STAT 05/28/2025 2:45 PM EDT MICROSCOPIC URINALYSIS Routine 2:25 PM EDT URINALYSIS WITH REFLEX TO CULTURE STAT 05/28/2025 2:25 PM EDT US RETROPERITONEAL COMPLETE STAT 05/28/2025 2:21 PM EDT COMPREHENSIVE METABOLIC PANEL Routine 05/25/2025 12:43 PM EDT from Last 3 Months Results * EKG Rhythm Strip (06/26/2025 6:00 AM EDT) Only the most recent of8 resultswithin the time period is included. 06/26/2025 6:00 AM EDT Narrative [facility] - 06/26/2025 6:33 AM EDT us Unknown Provider Result ECG ORDERABLES Final Re sult [facility] [address] [phone] * (ABNORMAL) CBC auto differential (06/26/2025 5:55 AM EDT) Only the most recent of8 resultswithin the time period is included. WBC 6.9 3.5 - 11.3 k/uL 06/26/2025 5:55 AM EDT [facility] RBC 2.63(L) 3.95 - 5.11 m/uL 06/26/2025 5:55 AM [facility] Hemoglobin 8.0(L) 11.9 - 15.1 g/dL 06/26/2025 5:55 AM [facility] Hematocrit 24.0(L) 36.3 - 47.1 % 06/26/2025 5:55 AM [facility] MCV 91.3 82.6 - 102.9 fL 06/26/2025 5:55 [facility] MCH 30.4 25.2 - 33.5 pg 06/26/2025 5:55 AM [facility] MCHC 33.3 28.4 - 34.8 g/dL 06/26/2025 5:55 AM [facility] RDW 14.1 11.8 - 14.4 % 06/26/2025 5:55 AM [facility] Platelets 119(L) 138 - 453 k/uL 06/26/2025 5:55 AM EDT [facility] MPV 10.7 8.1 - 13.5 fL 06/26/2025 5:55 AM [facility] NRBC Automated 0.0 0.0 per 100 WBC 06/26/2025 5:55 AM [facility] Neutrophils % 75(H) 36 - 65 % 06/26/2025 5:55 AM [facility] Lymphocytes % 11(L) 24 - 43 % 06/26/2025 5:55 AM [facility] Monocytes % 12 3 - 12 % 06/26/2025 5:55 AM [facility] Eosinophils % 1 1 - 4 % 06/26/2025 5:55 AM [facility] Basophils % 0 0 - 2 % 06/26/2025 5:55 AM [facility] Immature Granulocytes % 1(H) 0 % 06/26/2025 5:55 AM [facility] Neutrophils Absolute 5.09 1.50 - 8.10 k/uL 06/26/2025 5:55 AM [facility] Lymphocytes Absolute 0.77(L) 1.10 - 3.70 k/uL 06/26/2025 5:55 AM [facility] Monocytes Absolute 0.85 0.10 - 1.20 k/uL 06/26/2025 5:55 AM [facility] Eosinophils Absolute 0.09 0.00 - 0.44 k/uL 06/26/2025 5:55 AM [facility] Basophils Absolute <0.03 0.00 - 0.20 k/uL 06/26/2025 5:55 AM [facility] Immature Granulocytes Absolute 0.05 0.00 - 0.30 k/uL 06/26/2025 5:55 AM [facility] 06/26/2025 5:55 AM EDT 06/26/2025 6:04 AM EDT us Gaetano Mazariegos MD HEMATOLOGY ORDERABLES Final Resu lt [facility] [address] [place] [address] * Phosphorus (06/26/2025 5:55 AM EDT) Only the most recent of4 resultswithin the time period is included. Phosphorus 3.2 2.5 - 4.5 mg/dL 06/26/2025 5:55 AM EDT [facility] BLOOD SPECIMEN / Unknown 06/26/2025 5:55 AM EDT 06/26/2025 6:04 AM EDT us Shola Spivey MD CHEMISTRY ORDERABLES Final Resu lt Performing Organization Address [facility] Co de Phone Number [facility] [address] [place] [address] * Magnesium (06/26/2025 5:55 AM EDT) Only the most recent of5 resultswithin the time period is included. Magnesium 1.7 1.6 - 2.4 mg/dL 06/26/2025 5:55 AM EDT [facility] BLOOD SPECIMEN / Unknown 06/26/2025 5:55 AM EDT 06/26/2025 6:04 AM EDT us Shola Spivey MD CHEMISTRY ORDERABLES Final Resu lt Performing Organization Address [facility]/ZIP Co de Phone Number [facility] [address] [place] [address] * (ABNORMAL) Hepatic Function Panel (06/26/2025 5:55 AM EDT) Albumin 3.4(L) 3.5 - 5.2 g/dL 06/26/2025 5:55 AM EDT [facility] Alkaline Phosphatase 328(H) 35 - 104 U/L 06/26/2025 5:55 AM EDT [facility] ALT 27 10 - 35 U/L 06/26/2025 5:55 AM EDT [facility] AST 31 10 - 35 U/L 06/26/2025 5:55 AM EDT [facility] Total Bilirubin 0.3 0.00 - 1.20 mg/dL 06/26/2025 5:55 AM EDT [facility] Bilirubin, Direct <0.2 0.00 - 0.30 mg/dL 06/26/2025 5:55 AM EDT [facility] Bilirubin, Indirect Can not be calculated 0.0 - 1.0 mg/dL 06/26/2025 5:55 AM T [facility] Total Protein 5.6(L) 6.6 - 8.7 g/dL 06/26/2025 5:55 AM [facility] Albumin/Globuli n Ratio 1.5 1.0 - 2.5 06/26/2025 5:55 AM [facility] Blood BLOOD SPECIMEN / Unknown 06/26/2025 5:55 AM EDT 06/26/2025 6:04 AM EDT Saadia Carrillo DATA OPERATIONS MANAGER - CORPORATE RECRUITER CHEMISTRY ORDERABLES Final Result [facility] [address] [phone] * (ABNORMAL) Basic Metabolic Panel (06/26/2025 5:55 AM EDT) Only the most recent of5 resultswithin the time period is included. Sodium 138 136 - 145 mmol/L 06/26/2025 5:55 AM EDT [facility] Potassium 4.5 3.7 - 5.3 mmol/L 06/26/2025 5:55 AM T [facility] Chloride 104 98 - 107 mmol/L 06/26/2025 5:55 AM EDT [facility] CO2 19(L) 20 - 31 mmol/L 06/26/2025 5:55 AM EDT [facility] Anion Gap 15 9 - 16 mmol/L 06/26/2025 5:55 AM EDT [facility] Glucose 91 74 - 99 mg/dL 06/26/2025 5:55 AM EDT [facility] BUN 77(H) 8 - 23 mg/dL 06/26/2025 5:55 AM EDT [facility] Creatinine 3.8(H) 0.50 - 0.90 mg/dL 06/26/2025 5:55 AM EDT [facility] Est, Glom Filt Rate 11(L) >60 mL/min/1.7 3m2 06/26/2025 5:55 AM EDT [facility] Comment: These results are not [...] 20 9 - 20 06/26/2025 5:55 AM EDT [facility] Calcium 7.6(L) 8.6 - 10.4 mg/dL 06/26/2025 5:55 AM EDT [facility] BLOOD SPECIMEN / Unknown 06/26/2025 5:55 AM EDT 06/26/2025 6:04 AM EDT Shloa Spivey MD CHEMISTRY ORDERABLES Final Resu lt [facility] [address] [phone] * (ABNORMAL) Calcium, Ionized (06/24/2025 10:45 AM EDT) Only the most recent of2 resultswithin the time period is included. Calcium, Ionized 0.88(L) 1.13 - 1.33 mmol/L 06/24/2025 10:45 AM EDT [facility] [employer] BLOOD SPECIMEN / Unknown 06/24/2025 10:45 AM EDT 06/24/2025 3:06 PM EDT Shola Spivey MD CHEMISTRY ORDERABLES Final Resu lt Performing Organization Address City/[facility]/ZIP Co de Phone Number [facility] [address] [place] [address], [facility] [phone] [facility] [address] [place], [place] [address] [phone] * Celiac Reflex Panel (06/24/2025 8:01 AM EDT) Gliadin Deaminidated Peptide AB IGA 0.5 <7.0 U/mL 06/24/2025 8:01 AM EDT [employer] Comment: CELIAC INTERPRETATION <7.0 Negative 7.0-10.0 Equivocal >10.0 Positive units: U/mL Gliadin Deaminidated Peptide AB IGG <0.4 <7.0 U/mL 06/24/2025 8:01 AM EDT [employer] Comment: CELIAC INTERPRETATION <7.0 Negative 7.0-10.0 Equivocal >10.0 Positive units: U/mL IgA 266 70 - 400 mg/dL 06/24/2025 8:01 AM EDT [employer] Tissue Transglutaminase IgA 0.3 <7.0 U/mL 06/24/2025 8:01 AM EDT [employer] Comment: CELIAC INTERPRETATION <7.0 Negative 7.0-10.0 Equivocal >10.0 Positive units: U/mL Tissue Transglutaminase (tTG) Antibody (IgG) <0.6 <7.0 U/mL 06/24/2025 8:01 AM EDT [employer] Comment: CELIAC INTERPRETATION <7.0 Negative 7.0-10.0 Equivocal >10.0 Positive units: U/mL BLOOD SPECIMEN / Unknown 06/24/2025 8:01 AM EDT 06/24/2025 8:08 AM EDT Saadia Carrillo DATA OPERATIONS MANAGER - CORPORATE RECRUITER CHEMISTRY ORDERABLES Final Result [facility] [address] [place] [address], [facility] [phone] [address], [facility] [phone] * Albumin (06/24/2025 8:01 AM EDT) Albumin 3.6 3.5 - 5.2 g/dL 06/24/2025 8:01 AM EDT [facility] Blood BLOOD SPECIMEN / Unknown 06/24/2025 8:01 AM EDT 06/24/2025 8:15 AM EDT us Darnell Apple MD CHEMISTRY ORDERABLES Final Result Performing Organization Address [facility] Co de Phone Number [facility] [address] [place] [address] * (ABNORMAL) Hemoglobin and Hematocrit (06/23/2025 4:40 PM EDT) Only the most recent of2 resultswithin the time period is included. Hemoglobin 8.7(L) 11.9 - 15.1 g/dL 06/23/2025 4:40 PM EDT [facility] Hematocrit 26.5(L) 36.3 - 47.1 % 06/23/2025 4:40 PM EDT [facility] Blood BLOOD SPECIMEN / Unknown 06/23/2025 4:40 PM EDT 06/23/2025 4:44 PM EDT us Shola Spivey MD HEMATOLOGY ORDERABLES Final Res ult Performing Organization Address [facility]/ZIP Co de Phone Number [facility] [address] [place] [address] * Sodium, urine, random (06/23/2025 2:10 PM EDT) Sodium, Ur 83 mmol/L 06/23/2025 2:10 PM EDT [facility] Comment:No normal range esta blished. Urine (Urine) 06/23/2025 2:1 0 PM EDT 06/23/2025 2:18 PM EDT us Shola Spivey MD URINE ORDERABLES Final Result Performing Organization Address [facility]/ZIP Co de Phone Number [facility] [facility] [address] [place] [address] * Chloride, Random Urine (06/23/2025 2:10 PM EDT) Chloride, Ur 79 mmol/L 06/23/2025 2:10 PM EDT [facility] Comment:No normal range esta blished. Urine (Urine) 06/23/2025 2:1 0 PM EDT 06/23/2025 2:18 PM EDT us Shola Spivey MD URINE ORDERABLES Final Result Performing Organization Address [facility] de Phone Number [facility] [address] [place] [address] * Gastrointestinal Panel, Molecular (06/23/2025 10:40 AM EDT) Pathologist [facility] Specimen Description .FECES 10:40 AM EDT [facility] Campylobacter PCR NEGATIVE: No Campylobacter spp. (jejuni or coli) DNA Detected NEGATIVE: No Campylobacter spp. (jejuni or coli) DNA Detecte 10:40 AM EDT [facility] Salmonella PCR NEGATIVE: No Salmonella spp. DNA Detected NEGATIVE: No Salmonella spp. DNA Detected 10:40 AM EDT [facility] Shigatoxin Gene PCR NEGATIVE: No Shiga toxin-producin g gene(s) Detected NEGATIVE: No Shiga toxin-producin g gene(s) Detected 10:40 AM EDT [facility] Shigella Sp PCR NEGATIVE: No Shigella spp. / EIEC DNA Detected NEGATIVE: No Shigella spp. / EIEC DNA Detected 10:40 AM EDT [facility] Plesiomonas Shigelloides PCR NEGATIVE: No Plesionomas shigelloides DNA Detected NEGATIVE: No Plesionomas shigelloides DNA Detected 10:40 AM EDT [facility] Vibrio PCR NEGATIVE: No Vibrio (V. vulnificus, V, parahaemolytic us and V. cholerae) DNA Detected NEGATIVE: No Vibrio (V. vulnificus, V, parahaemolytic us and 10:40 AM EDT [facility] E Coli Enterotoxigenic PCR NEGATIVE: No Enterotoxigeni c E. coli (ETEC) Heat-labile and heat-stable (LT/ST) DNA Detected NEGATIVE: No Enterotoxigeni c E. coli (ETEC) Heat-labile and 10:40 AM EDT [facility] Yersinia Enterocolitica PCR NEGATIVE: No Yersinia enterocolitica DNA Detected NEGATIVE: No Yersinia enterocolitica DNA Detected 10:40 AM EDT [facility] STOOL SPECIMEN / Unknown 06/23/2025 10:40 AM EDT 06/23/2025 11:11 AM EDT Gaetano Mazariegos MD MICROBIOLOGY - GENERAL ORDERABLE S Final Result [facility] [address] [place] [address], [facility] [phone] [place] [id number], [facility] [phone] * Clostridium Difficile Toxin/Antigen (06/23/2025 10:40 AM EDT) Specimen Description .FECES 06/23/2025 10:40 AM EDT [facility] C DIFF AG + TOXIN NEGATIVE NEGATIVE 06/23/2025 10:40 AM EDT [facility] Comment:No C. difficile anti gen and Toxin Detected. Stool STOOL SPECIMEN / Unknown 06/23/2025 10:40 AM EDT 06/23/2025 11:11 AM EDT Gaetano Mazariegos MD MICROBIOLOGY - GENERAL ORDERABLE S Final Result Performing Organization Address [facility]/ZIP Co de Phone Number [facility] [address] [phone] * (ABNORMAL) Blood Occult Stool Screen #1 (06/23/2025 10:40 AM EDT) Occult Blood, Stool #1 POSITIVE(A ) NEGATIVE 06/23/2025 10:40 AM EDT [facility] Date, Stool #1 7 06/23/2025 10:40 AM EDT [facility] Comment: Time, Stool #1 1,040 06/23/2025 10:40 AM EDT [facility] STOOL SPECIMEN / Unknown 06/23/2025 10:40 AM EDT 06/23/2025 11:11 AM EDT Gaetano Mazariegos MD BODY FLUIDS AND STOOLS ORDERABLE S Final Result Performing Organization Address [facility] Co de Phone Number [facility] [address] [phone] * (ABNORMAL) Fecal fat, qualitative (06/23/2025 10:40 [...] suggests impaired absorption of nutrients. Performed By: [employer] [address] [place] [id number] [employer] Bench: Jc Fine MD, PhD CLIA Number: [id number] Stool STOOL SPECIMEN / Unknown 06/23/2025 10:40 AM EDT 06/23/2025 11:10 AM EDT Gaetano Mazariegos MD BODY FLUIDS AND STOOLS ORDERABLE S Final Result [facility] [address] [place] [id number], [facility] [phone] [facility] [address] [phone] * Giardia antigen (06/23/2025 10:40 AM EDT) [facility] Specimen Description .FECES 06/23/2025 10:40 AM EDT [facility] Source .FECES 06/23/2025 10:40 AM EDT [facility] Giardia Ag, Stl NEGATIVE NEGATIVE 10:40 AM EDT [facility] Comment:Giardia Antigen Assa y Stool STOOL SPECIMEN / Unknown 06/23/2025 10:40 AM EDT 06/23/2025 11:11 AM EDT Gaetano Mazariegos MD MICROBIOLOGY - GENERAL ORDERABLE S Final Result Performing Organization Address [facility]/ZIP Co de Phone Number [facility] [address] [place] [id number], [facility] [phone] [facility] [employer] [address] [place] [address] * TYPE AND SCREEN (06/23/2025 7:30 AM EDT) [facility] Blood Bank Sample Expiration 06/26/2025,2359 06/23/2025 8:33 AM EDT [facility] Arm Band Number [id number] 8:33 AM EDT [facility] ABO/Rh O NEGATIVE 06/23/2025 8:33 AM EDT [facility] Antibody Screen NEGATIVE 8:33 AM EDT [facility] Unit Number [id number] 06/23/2025 8:34 AM EDT [facility] Component Leukocyte Reduced Red Cell 06/23/2025 8:34 AM EDT [facility] Unit Divison 00 06/23/2025 8:34 AM EDT [facility] Dispense Status Blood Bank TRANSFUSED 06/24/2025 12:19 AM [facility] Unit Issue Date/Time [id number] 06/24/2025 12:19 AM EDT [facility] Product Code Blood Bank [id number] 06/24/2025 12:19 AM EDT [facility] Blood Bank Unit Type and Rh O NEG 06/24/2025 12:19 AM [facility] Blood Bank ISBT Product Blood Type 9500 06/24/2025 12:19 AM [facility] Blood Bank Blood Product Expiration Date [id number] 06/24/2025 12:19 AM [facility] Transfusion Status OK TO TRANSFUSE 06/23/2025 8:34 AM [facility] Crossmatch Result COMPATIBLE 06/23/2025 8:34 AM [facility] Blood BLOOD SPECIMEN / Unknown 06/23/2025 7:30 AM EDT 06/23/2025 7:43 AM EDT us Saadia Carrillo DATA OPERATIONS MANAGER - CORPORATE RECRUITER BLOOD BANK TEST ORDE LORETA Final Result [facility] [address] [phone] * (ABNORMAL) Comprehensive Metabolic Panel w/ Reflex to MG (06/23/2025 6:15 AM EDT) Only the most recent of3 resultswithin the time period is included. Sodium 134(L) 136 - 145 mmol/L 06/23/2025 6:15 AM EDT [facility] Potassium 4.8 3.7 - 5.3 mmol/L 06/23/2025 6:15 AM EDT [facility] Chloride 104 98 - 107 mmol/L 06/23/2025 6:15 AM [facility] CO2 14(L) 20 - 31 mmol/L 06/23/2025 6:15 AM [facility] Anion Gap 16 9 - 16 mmol/L 06/23/2025 6:15 AM [facility] Glucose 104(H) 74 - 99 mg/dL 06/23/2025 6:15 AM [facility] BUN 79(H) 8 - 23 mg/dL 06/23/2025 6:15 AM [facility] Creatinine 4.4(H) 0.50 - 0.90 mg/dL 06/23/2025 6:15 AM [facility] Est, Glom Filt Rate 10(L) >60 mL/min/1.7 3m2 06/23/2025 6:15 AM [facility] Comment: These results are not intended [...] 18 9 - 20 06/23/2025 6:15 AM [facility] Calcium 6.4(L) 8.6 - 10.4 mg/dL 06/23/2025 6:15 AM [facility] Total Protein 5.4(L) 6.6 - 8.7 g/dL 06/23/2025 6:15 AM [facility] Albumin 3.4(L) 3.5 - 5.2 g/dL 06/23/2025 6:15 AM [facility] Albumin/Globulin Ratio 1.6 1.0 - 2.5 06/23/2025 6:15 AM [facility] Total Bilirubin 0.3 0.00 - 1.20 mg/dL 06/23/2025 6:15 AM [facility] Alkaline Phosphatase 325(H) 35 - 104 U/L 06/23/2025 6:15 AM EDT [facility] ALT 25 10 - 35 U/L 06/23/2025 6:15 AM EDT [facility] AST 25 10 - 35 U/L 06/23/2025 6:15 AM EDT [facility] BLOOD SPECIMEN / Unknown 06/23/2025 6:15 AM EDT 06/23/2025 6:29 AM EDT Gaetano Mazariegos MD CHEMISTRY ORDERABLES Final Resul t [facility] [address] [phone] * (ABNORMAL) Iron and TIBC (06/23/2025 6:15 AM EDT) Only the most recent of2 resultswithin the time period is included. Iron 70 37 - 145 ug/dL 06/23/2025 6:15 AM EDT [facility] TIBC 199(L) 250 - 450 ug/dL 06/23/2025 6:15 AM EDT [facility] Iron % Saturation 35 20 - 55 % 06/23/2025 6:15 AM EDT [facility] UI[facility] 129 112 - 347 ug/dL 06/23/2025 6:15 AM EDT [facility] Blood BLOOD SPECIMEN / Unknown 06/23/2025 6:15 AM EDT 06/23/2025 7:20 AM EDT us Saadia Carrillo DATA OPERATIONS MANAGER - CORPORATE RECRUITER CHEMISTRY ORDERABLES Final Result [facility] [address] [place] [address], [facility] [phone] [facility] [employer] [address] [place] [id number] [phone] * (ABNORMAL) Vitamin D 25 Hydroxy (06/23/2025 6:15 AM EDT) Only the most recent of2 resultswithin the time period is included. Vit D, 25-Hydroxy 23.1(L) 30.0 - 100.0 ng/mL 06/23/2025 6:15 AM EDT [facility] Comment: Reference Range: Vitamin D status Range Deficiency <20 ng/mL Mild Deficiency 20-30 ng/mL Sufficiency 30-100 ng/mL Toxicity >100 ng/mL BLOOD SPECIMEN / Unknown 06/23/2025 6:15 AM EDT 06/23/2025 6:29 AM EDT us Shola Spivey MD CHEMISTRY ORDERABLES Final Resu lt Performing Organization Address [facility]/ZIP Co de Phone Number [facility] [address] [place] [address] [facility] [address] [place] [address] * (ABNORMAL) Reticulocytes (06/23/2025 6:15 AM EDT) Retic Ct Pct 1.3 0.5 - 1.9 % 06/23/2025 6:15 AM EDT [facility] Absolute Retic # 0.029(L) 0.030 - 0.080 M/uL 06/23/2025 6:15 AM EDT [facility] Immature Retic Fract 10.9 2.7 - 18.3 % 06/23/2025 6:15 AM EDT [facility] Retic Hemoglobin 32.6 28.2 - 35.7 pg 06/23/2025 6:15 AM EDT [facility] Blood BLOOD SPECIMEN / Unknown 06/23/2025 6:15 AM EDT 06/23/2025 7:20 AM EDT us Saadia Carrillo APRN - CORPORATE RECRUITER HEMATOLOGY ORDERABLE S Final Result Performing Organization Address [facility]/ZIP Co de Phone Number [facility] [address] [place] [address] * Ferritin (06/23/2025 6:15 AM EDT) Only the most recent of2 resultswithin the time period is included. Ferritin 365 ng/mL 06/23/2025 6:15 AM EDT [facility] Comment:No reference range e stablished for this age/gender. Blood BLOOD SPECIMEN / Unknown 06/23/2025 6:15 AM EDT 06/23/2025 7:20 AM EDT us Saadia Carrillo DATA OPERATIONS MANAGER - CORPORATE RECRUITER CHEMISTRY ORDERABLES Final Result [facility] [address] [place] [address], [facility] [phone] [facility] [address] [place] [address], [facility] [phone] * CT FEMUR RIGHT WO CONTRAST (06/22/2025 [...] gas identified. 2. No acute osseous abnormality. Gaetano Mazariegos MD IMG CT ORDERABLES Final Result * TSH reflex to FT4 (06/22/2025 6:23 PM EDT) TSH 3.71 0.27 - 4.20 uIU/mL 06/22/2025 6:23 PM EDT [facility] Blood BLOOD SPECIMEN / Unknown 06/22/2025 6:23 PM EDT 06/22/2025 8:05 PM EDT Gaetano Mazariegos MD CHEMISTRY ORDERABLES Final Resul t Performing Organization Address [facility] Co de Phone Number [facility] [address] [place] [address] * (ABNORMAL) Troponin (06/22/2025 6:23 PM EDT) Only the most recent of2 resultswithin the time period is included. Troponin, High Sensitivity 17(H) 0 - 14 ng/L 06/22/2025 6:23 PM EDT [facility] Comment:High Sensitivity Tro ponin values cannot be compared with other Troponin methodologies. Blood BLOOD SPECIMEN / Unknown 06/22/2025 6:23 PM EDT 06/22/2025 6:26 PM EDT Komal Clement MD CHEMISTRY ORDERABLES Final Res ult Performing Organization Address [facility] Co de Phone Number [facility] [address] [place] [address] * Lipase (06/22/2025 6:23 PM EDT) Only the most recent of2 resultswithin the time period is included. Lipase 31 13 - 60 U/L 06/22/2025 6:23 PM EDT [facility] Blood BLOOD SPECIMEN / Unknown 06/22/2025 6:23 PM EDT 06/22/2025 6:34 PM EDT Gaetano Mazariegos MD CHEMISTRY ORDERABLES Final Resul t Performing Organization Address [facility]/ZIP Co de Phone Number [facility] [address] [place] [address], [place] [phone] * Amylase (06/22/2025 6:23 PM EDT) Amylase 32 28 - 100 U/L 06/22/2025 6:23 PM EDT [facility] Blood BLOOD SPECIMEN / Unknown 06/22/2025 6:23 PM EDT 06/22/2025 6:34 PM EDT Gaetano Mazariegos MD CHEMISTRY ORDERABLES Final Resul t Performing Organization Address City/[facility]/ZIP Co de Phone Number [facility] [address] [place] [address] * (ABNORMAL) PTH, Intact (06/22/2025 4:05 PM EDT) Only the most recent of2 resultswithin the time period is included. Pth Intact 313.0(H) 17.9 - 58.6 pg/mL 06/22/2025 4:05 PM EDT [facility] Blood BLOOD SPECIMEN / Unknown 06/22/2025 4:05 PM EDT 06/22/2025 4:23 PM EDT Komal Clement MD CHEMISTRY ORDERABLES Final Res ult Performing Organization Address [facility]/ZIP Co de Phone Number [facility] [address] [phone] [phone] * (ABNORMAL) Comprehensive Metabolic Panel (06/22/2025 4:05 PM EDT) Only the most recent of4 resultswithin the time period is included. Sodium 135(L) 136 - 145 mmol/L 06/22/2025 4:05 PM EDT [facility] Potassium 5.3 3.7 - 5.3 mmol/L 06/22/2025 4:05 PM EDT [facility] Chloride 101 98 - 107 mmol/L 06/22/2025 4:05 PM [facility] CO2 15(L) 20 - 31 mmol/L 06/22/2025 4:05 PM [facility] Anion Gap 19(H) 9 - 16 mmol/L 06/22/2025 4:05 PM [facility] Glucose 134(H) 74 - 99 mg/dL 06/22/2025 4:05 PM [facility] BUN 70(H) 8 - 23 mg/dL 06/22/2025 4:05 PM [facility] Creatinine 4.6(H) 0.50 - 0.90 mg/dL 06/22/2025 4:05 PM [facility] Est, Glom Filt Rate 9(L) >60 mL/min/1.7 3m2 06/22/2025 4:05 PM [facility] Comment: These results are not intended [...] 15 9 - 20 06/22/2025 4:05 PM [facility] Calcium 5.8(LL) 8.6 - 10.4 mg/dL 06/22/2025 4:05 PM [facility] Total Protein 6.4(L) 6.6 - 8.7 g/dL 06/22/2025 4:05 PM [facility] Albumin 4.0 3.5 - 5.2 g/dL 06/22/2025 4:05 PM [facility] Albumin/Globulin Ratio 1.6 1.0 - 2.5 06/22/2025 4:05 PM [facility] Total Bilirubin 0.3 0.00 - 1.20 mg/dL 06/22/2025 4:05 PM [facility] Alkaline Phosphatase 386(H) 35 - 104 U/L 06/22/2025 4:05 PM EDT [facility] ALT 32 10 - 35 U/L 06/22/2025 4:05 PM EDT [facility] AST 33 10 - 35 U/L 06/22/2025 4:05 PM EDT [facility] Blood BLOOD SPECIMEN / Unknown 06/22/2025 4:05 PM EDT 06/22/2025 4:23 PM EDT us Komal Clement MD CHEMISTRY ORDERABLES Final Res ult [facility] [address] [phone] * EKG 12 Lead (06/22/2025 3:53 PM EDT) Pathologist [facility] Ventricular Rate 77 BPM [facility] Atrial Rate 77 BPM [facility] P-R Interval 158 ms [facility] QRS Duration 84 ms [facility] Q-T Interval 410 ms [facility] QTc Calculation (Bazett) 463 ms [facility] P [place] 36 degrees [facility] R [place] 71 degrees [facility] T [place] 39 degrees [facility] 06/22/2025 3:53 PM EDT Narrative [facility] - 06/22/2025 8:07 PM EDT Poor data quality, interpretation may be adversely affected Normal sinus rhythm Normal ECG No previous ECGs available Confirmed by Jayleen Price ([id number]) on 06/22/2025 8:07:21 PM Procedure Note Jayleen Price MD - 06/22/2025 Poor data quality, interpretation may be adversely affected Normal sinus rhythm Normal ECG No previous ECGs available Confirmed by Jayleen Price ([id number]) on 06/22/2025 8:07:21 PM us Komal Clement MD ECG ORDERABLES Final Result [facility] * US RENAL COMPLETE (06/22/2025 2:05 PM EDT) Anatomical Region Laterality Modality Abdomen Ultrasound 06/23/2025 6:5 9 AM EDT Impressions 06/23/2025 7:00 AM EDT [...] hydronephrosis. 2. Stable left kidney simple cysts. Result Sherwin Spivey MD IM US ORDERABLES Final Result * (ABNORMAL) Microscopic Urinalysis (06/22/2025 2:03 PM EDT) Only the most recent of2 resultswithin the time period is included. WBC, UA 2 TO 5 0 - 5 /HPF 06/22/2025 2:03 PM EDT [facility] RBC, UA None 0 - 2 /HPF 06/22/2025 2:03 PM EDT [facility] Epithelial Cells, UA None 0 - 25 /HPF 06/22/2025 2:03 PM EDT [facility] Bacteria, UA TRACE(A) None 06/22/2025 2:03 PM EDT [facility] 06/22/2025 2:03 PM EDT 06/22/2025 2:04 PM EDT us Shola Spivey MD URINE ORDERABLES Final Result [facility] [address] [phone] * (ABNORMAL) Protein / creatinine ratio, urine (06/22/2025 2:03 PM EDT) Total Protein, Urine 120 mg/dL 06/22/2025 2:03 PM EDT [facility] Comment:No normal range esta blished. Creatinine, Ur 77.3 28.0 - 217.0 mg/dL 06/22/2025 2:03 PM EDT [facility] Urine Total Protein Creatinine Ratio 1.55(H) 0.00 - 0.20 06/22/2025 2:03 PM EDT [facility] Urine (Urine) 06/22/2025 2:0 3 PM EDT 06/22/2025 2:04 PM EDT Shola Spivey MD URINE ORDERABLES Final Result [facility] [address] [phone] * (ABNORMAL) Urinalysis (06/22/2025 2:03 PM EDT) Color, UA Yellow Yellow 06/22/2025 2:03 PM EDT [facility] Turbidity UA Clear Clear 06/22/2025 2:03 PM EDT [facility] Glucose, Ur TRACE(A) NEGATIVE mg/dL 06/22/2025 2:03 PM EDT [facility] Bilirubin, Urine NEGATIVE NEGATIVE 06/22/2025 2:03 PM EDT [facility] Ketones, Urine NEGATIVE NEGATIVE mg/dL 06/22/2025 2:03 PM T [facility] Specific [place], UA 1.020 1.010 - 1.020 06/22/2025 2:03 PM EDT [facility] Urine Hgb 1+(A) NEGATIVE 06/22/2025 2:03 PM [facility] pH, Urine 6.0 5.0 - 9.0 06/22/2025 2:03 PM [facility] Protein, UA 2+(A) NEGATIVE mg/dL 06/22/2025 2:03 PM T [facility] Urobilinogen, Urine Normal 0.0 - 1.0 EU/dL 06/22/2025 2:03 PM [facility] Nitrite, Urine NEGATIVE NEGATIVE 06/22/2025 2:03 PM [facility] Leukocyte Esterase, Urine SMALL(A) NEGATIVE 06/22/2025 2:03 PM [facility] Urine URINE SPECIMEN / Unknown 06/22/2025 2:03 PM EDT 06/22/2025 2:04 PM EDT Shola Spivey MD URINE ORDERABLES Final Result [facility] [address] [phone] * (ABNORMAL) Urinalysis with Reflex to Culture (05/28/2025 2:25 PM EDT) Color, UA Yellow Yellow 05/28/2025 2:25 PM EDT [facility] Turbidity UA Clear Clear 05/28/2025 2:25 PM EDT [facility] Glucose, Ur TRACE(A) NEGATIVE mg/dL 05/28/2025 2:25 PM EDT [facility] Bilirubin, Urine NEGATIVE NEGATIVE 05/28/2025 2:25 PM EDT [facility] Ketones, Urine NEGATIVE NEGATIVE mg/dL 05/28/2025 2:25 PM EDT [facility] Specific [place], UA 1.010 1.010 - 1.020 05/28/2025 2:25 PM EDT [facility] Urine Hgb TRACE(A) NEGATIVE 05/28/2025 2:25 PM EDT [facility] pH, Urine 7.0 5.0 - 9.0 05/28/2025 2:25 PM EDT [facility] Protein, UA 1+(A) NEGATIVE mg/dL 05/28/2025 2:25 PM EDT [facility] Urobilinogen, Urine Normal 0.0 - 1.0 EU/dL 05/28/2025 2:25 PM EDT [facility] Nitrite, Urine NEGATIVE NEGATIVE 05/28/2025 2:25 PM EDT [facility] Leukocyte Esterase, Urine TRACE(A) NEGATIVE 05/28/2025 2:25 PM EDT [facility] Urine 05/28/2025 2:25 PM EDT 05/28/2025 2:41 PM EDT Mike Castillo PA-C URINE ORDERABLES Final Re sult [facility] [address] [place] [address], [facility] [phone] * US RETROPERITONEAL COMPLETE (05/28/2025 2:21 PM EDT) Anatomical Region Laterality Modality Abdomen, Pelvis Ultrasound 05/28/2025 3:52 PM EDT Impressions 05/28/2025 3:56 PM EDT 1. Moderate right hydronephrosis. 2. Bilateral increased echogenicity of the renal parenchyma compatible with medical renal disease. 3. Simple cysts in the left kidney. Narrative 05/28/2025 3:56 PM EDT EXAM: RETROPERITONEAL ULTRASOUND OF THE KIDNEYS AND URINARY BLADDER TECHNIQUE: Real-time ultrasonography of the retroperitoneum including the kidneys and urinary bladder was performed. COMPARISON: None CLINICAL HISTORY: Elevated creatnine. FINDINGS: RIGHT KIDNEY: The right kidney measures 10.0 cm in length. Bilateral increased echogenicity of the renal parenchyma compatible with medical renal disease. Moderate hydronephrosis. LEFT KIDNEY: The left kidney measures 9.0 cm in length. Bilateral increased echogenicity of the renal parenchyma compatible with medical renal disease. Simple cyst measuring 2.0 x 1.9 x 1.9 cm. Simple cyst measuring 2.6 x 2.8 x 2.3 cm. BLADDER: Unremarkable appearance of the bladder. Procedure Note Lucius Salas MD - 05/28/2025 EXAM: RETROPERITONEAL ULTRASOUND OF THE KIDNEYS AND URINARY BLADDER TECHNIQUE: Real-time ultrasonography of the retroperitoneum including the kidneys andurinary bladder was performed. COMPARISON: None CLINICAL HISTORY: Elevated creatnine. FINDINGS: RIGHT KIDNEY: The right kidney measures 10.0 cm in length. Bilateral increasedechogenicity of the renal parenchyma compatible with medical renaldisease. Moderate hydronephrosis. LEFT KIDNEY: The left kidney measures 9.0 cm in length. Bilateral increasedechogenicity of the renal parenchyma compatible with medical renaldisease. Simple cyst measuring 2.0 x 1.9 x 1.9 cm. Simple cyst measuring2.6 x 2.8 x 2.3 cm. BLADDER: Unremarkable appearance of the bladder. IMPRESSION: 1. Moderate right hydronephrosis. 2. Bilateral increased echogenicity of the renal parenchyma compatiblewith medical renal disease. 3. Simple cysts in the left kidney. us Yue Nikki Friend DO G US ORDERABLES Final Resul t from Last 3 Months Insurance [facility] DUAL COMPLETE Advance Directives * Full Code (Latest Code Status on File) Date Activated Date Inactivated Comments 06/22/2025 7:37 PM 06/26/2025 5:01 PM * Full Code Date Activated Date Inactivated Comments 05/28/2025 5:19 PM 05/30/2025 2:45 PM * Full Code Date Activated Date Inactivated Comments 01/10/2017 5:40 PM 01/11/2017 3:31 PM * Full Code Date Activated Date Inactivated Comments 12/21/2016 1:48 AM 12/28/2016 3:02 PM Healthcare Agents on File Name Relationship Healthcare Agent [facility] Communication Anajaylen Roth Child Primary Decision Maker Care Teams Script Editor Relationship Specialty Start Date End Date Vijay Davis MD [address] [place] [address] PCP - General Family Medicine 05/28/25
--- OUTSIDE RECORDS SUMMARY | 2025-07-05 11:37 | XMS_ITS | Encounter Summary ---
Author Organization [facility] Address [address] [place] [address] Care Team Providers Care Wood Heel Attacher Name Role Phone Vijay Davis MD Primary Care Provider [phone] Sang Guerra MD Unavailable Source Comments In the event this information is protected by the Federal Confidentiality of Alcohol and Drug AbusePatient Records regulations: The Federal rules restrict any use of the information to criminally investigate or prosecute any alcohol or drug abuse patient.[facility] Encounter Details Date Type Department Care Team (Late st Contact Info) Description 04/24/2022 Lab Requisition [facility] Laboratory [address] [place] [address] Sandrita Santana, INTERNATIONAL MANAGER.CLINICAL APPLICATIONS SPECIALIST [address] [place] [address] Heart transplant status (HCC) Social [...] N ot on file 11/06/2020 Data from: https://www.neighborhoodatlas.medicine.[facility]/. Last address used for calculation Not [...] EDT 04/24/2022 11:47 PM EDT Sandrita Santana INTERNATIONAL MANAGER.CLINICAL APPLICATIONS SPECIALIST LABORATORY Final Re sult Performing Organization Address City/[facility] Co de Phone Number [facility] [address] [facility] [place] [address], * (ABNORMAL) TACROLIMUS/FK-506 BL (04/24/2022 9:23 AM EDT) Tacrolimus/FK506 4.5(L) 5.0 - 20.0 ng/mL 04/25/2022 10:05 AM EDT [facility] Comment: These reference ranges are [...] situation. Test performed by chemiluminescent immunoassay using [employer]. Blood BLOOD SPECIMEN / Unknown 04/24/2022 9:23 AM EDT 04/24/2022 11:47 PM EDT Sandrita Santana APRN.CLINICAL APPLICATIONS SPECIALIST LABORATORY Final Re sult Performing Organization Address [facility]/ZIP Co de Phone Number [facility] [address] [facility] [place] [address], documented in this encounter Visit Diagnoses Diagnosis Heart transplant status (HCC) documented in this encounter Additional Health Concerns Infection Onset Date Last Indicated Resolved Time COVID-19 Rule-Out 01/15/2025 01/15/2025 01/15/2025 10:01 AM EST Influenza 01/15/2025 01/15/2025 01/29/2025 8:51 PM EST C. difficile 01/20/2025 01/20/2025 02/19/2025 8:51 PM EDT Norovirus 01/20/2025 01/20/2025 documented as of this encounter Care Teams Wood Heel Attacher Relationship Specialty Start Date End Date Vijay Davis MD PCP - General Family Medicine 05/13/19 Sang Guerra MD [address] [place] [id number] Referring Internal Medicine 01/18/25 documented as of this encounter
--- OUTSIDE RECORDS SUMMARY | 2025-07-05 11:37 | XMS_ITS | Encounter Summary ---
Author Organization [facility] Address [facility] [place] [address] Care Team Providers Care Principal Administrative Clerk Name Role Phone Vijay Davis MD Primary Care Provider [phone] Sang Guerra MD Unavailable [phone] Source Comments In the event this information is protected by the Federal Confidentiality of Alcohol and Drug AbusePatient Records regulations: The Federal rules restrict any use of the information to criminally investigate or prosecute any alcohol or drug abuse patient.[facility] Encounter Details Date Type Department Care Team (Late st Contact Info) Description 07/03/2022 Lab Requisition [facility] Hospital Laboratory [facility] [place] [address] Loida Mathias APRN.AQUATIC LIFE LABORER [address] [place] [address] Heart transplant status (HCC) Social [...] N ot on file 11/06/2020 Data from: https://www.neighborhoodatlas.medicine.[facility]/. Last address used for calculation Not [...] Loida Mathias APRN.[facility] Fi nal Result [facility] [address] [place] [address], [place] * LAVENDER TOP EXTRA TUBE (07/03/2022 9:15 AM EDT) Blood BLOOD SPECIMEN / Unknown 07/03/2022 9:15 AM EDT 07/03/2022 11:17 PM EDT Loida Mathias APRN.AQUATIC LIFE LABORER LABORATORY Fi nal Result Performing Organization Address City/[facility] Co de Phone Number [facility] [address] [place] [address], [place] * LAVENDER TOP EXTRA TUBE (07/03/2022 9:15 AM EDT) Blood BLOOD SPECIMEN / Unknown 07/03/2022 9:15 AM EDT 07/03/2022 11:17 PM EDT Loida Mathias APRN.[facility] Fi nal Result Performing Organization Address City/[facility]/ZIP Co de Phone Number [facility] [address] [place] [address], [place] * TACROLIMUS/FK-506 BL (07/03/2022 9:15 AM EDT) Pathologist [facility] Tacrolimus/FK506 12.4 5.0 - 20.0 ng/mL 07/04/2022 11:46 PM EDT [facility] Comment: These reference ranges are [...] Test performed by chemiluminescent immunoassay using [employer]. Blood BLOOD SPECIMEN / Unknown 07/03/2022 9:15 AM EDT 07/03/2022 11:17 PM EDT us Loida Mathias PEN TESTER.AQUATIC LIFE LABORER LABORATORY Fi nal Result [facility] [address] [facility] [address] [address] [place] [address], documented in this encounter Visit Diagnoses Diagnosis Heart transplant status (HCC) documented in this encounter Additional Health Concerns Infection Onset Date Last Indicated Resolved Time COVID-19 Rule-Out 01/15/2025 01/15/2025 01/15/2025 10:01 AM EST Influenza 01/15/2025 01/15/2025 01/29/2025 8:51 PM EST C. difficile 01/20/2025 01/20/2025 02/19/2025 8:51 PM EDT Norovirus 01/20/2025 01/20/2025 documented as of this encounter Care Teams Principal Administrative Clerk Relationship Specialty Start Date End Date Vijay Davis MD PCP - General Family Medicine 05/13/19 Sang Guerra MD [address] [place] [id number] Referring Internal Medicine 01/18/25 documented as of this encounter
--- OUTSIDE RECORDS SUMMARY | 2025-07-05 11:37 | XMS_ITS | Encounter Summary ---
Author Organization [facility] Address [address] [place] [address] Care Team Providers Care Straw Baler Name Role Phone Vijay Davis MD Primary Care Provider + Sang Guerra MD Unavailable [phone] Source Comments In the event this information is protected by the Federal Confidentiality of Alcohol and Drug AbusePatient Records regulations: The Federal rules restrict any use of the information to criminally investigate or prosecute any alcohol or drug abuse patient.[facility] Encounter Details Date Type Department Care Team (Late st Contact Info) Description 01/13/2025 Patient Msg Ophthalmology [address] [place] [id number] Provider, Patrice New appointment scheduled for follow up Eye exam in [place] Social History Tobacco Use Types Packs/Day Years [...] N ot on file 11/06/2020 Data from: https://www.neighborhoodatlas.[facility]/. Last address used for calculation [...] documented as of this encounter Care Teams Straw Baler Relationship Specialty Start Date End Date Vijay Davis MD PCP - General Family Medicine 05/13/19 Sang Guerra MD [address] [place] [address] Referring Internal Medicine 01/18/25 documented as of this encounter
--- OUTSIDE RECORDS SUMMARY | 2025-07-05 11:37 | XMS_ITS | Encounter Summary ---
Author Organization [facility] Address [address] [place] [address] Phone Care Team Providers Care Plate Cutter Name Role Phone Vijay Davis MD Primary Care Provider [phone] Encounter Details Date Type Department Care Team (Late st Contact Info) Description 06/18/2024 Scanned Document [facility] [address] [place] [id number] Scanning, Generic Provider Social History Tobacco Use [...] on filedocumented in this encounter Care Teams Plate Cutter Relationship Specialty Start Date End Date Vijay Davis MD [address] [facility] [place] [address] PCP - General Family Medicine 09/16/24 documented as of this encounter
--- OUTSIDE RECORDS SUMMARY | 2025-07-05 11:37 | XMS_ITS | Encounter Summary ---
Author Organization [facility] Address [address] [place] [address] Care Team Providers Care Wood Bucker Name Role Phone Vijay Davis MD Primary Care Provider [phone] Reason for Visit * Reason Comments Med Change Request Encounter Details Date Type Department Care Team (Late st Contact Info) Description 04/10/[address] [address] Jameel Daly MD [address] [facility] [place] [address] Primary hypertension Social History Tobacco [...] Description 09/17/2025 11:00 AM EDT Office Visit [address] [address] Jameel Daly MD [address] [facility] [place] [address] documented as of this encounter Visit Diagnoses Diagnosis Primary hypertension Unspecified essential hypertension documented in this encounter Additional Health Concerns Infection Onset Date Last Indicated Resolved Time C. difficile Rule-Out 01/08/2025 01/09/20252024 2:48 PM EST documented as of this encounter Care Teams Wood Bucker Relationship Specialty Start Date End Date Vijay Davis MD [address] [place], [place] [address] [address] PCP - General 08/12/22 documented as of this encounter
--- OUTSIDE RECORDS SUMMARY | 2025-07-05 11:37 | XMS_ITS | Encounter Summary ---
Author Organization [facility] Address [facility] [place] [address] Care Team Providers Care Transport Truck Driver Name Role Phone Fausto Garcia DO Primary Care Provider Vijay Davis MD Primary Care Provider [phone] Sang Guerra MD Unavailable [phone] Source Comments In the event this information is protected by the Federal Confidentiality of Alcohol and Drug AbusePatient Records regulations: The Federal rules restrict any use of the information to criminally investigate or prosecute any alcohol or drug abuse patient.[facility] Encounter Details Date Type Department Care Team (Late st Contact Info) Description 03/16/2017 Patient Msg Pulmonary Medicine [address] [address] Darrius Mesa MD [address] [place] [address] RE: Request Preventive Care Procedure [...] Assessment Author No 07/05/2015 2:33 PM EDT rTish Aquino (Rn) (Hist), RN * Do you [...] documented as of this encounter Care Teams Transport Truck Driver Relationship Specialty Start Date End Date Fausto Garcia DO PCP - General Family Medicine 11/19/16 05/12/19 Vijay Davis MD PCP - General Family Medicine 05/13/19 Sang Guerra MD [address] [place] [address] Referring Internal Medicine 01/18/25 documented as of this encounter
--- OUTSIDE RECORDS SUMMARY | 2025-07-05 11:38 | XMS_ITS | Encounter Summary ---
Author Organization [facility] Address [address] [place] [address] Care Team Providers Care Railroad Crane Operator Name Role Phone Vijay Davis MD Primary Care Provider [phone] Encounter Details Date Type Department Care Team (Late st Contact Info) Description 06/23/2025 Telephone [facility] [address] [place] [address] Kristin Richardson MA Social History Tobacco Use Types Packs/Day Years Used Date Smoking Tobacco: Never Smokeless Tobacco: Never Alcohol Use Standard Drinks/Week Comments Not Currently 0 (1 standard drink = 0.6 oz pur e alcohol) [facility] Utilities Answer Date Recorded In the [...] were you homeless or living in a custodial (including now)? No 01/08/2025 Hunger Vital Sign [...] PM EDT documented as of this encounter Miscellaneous Notes * Telephone Encounter - Kristin Richardson MA - 06/23/2025 1:54 PM EDT Spoke to Aleta at [facility]. Referral received patient is scheduled for 07/06/2025 at 9:30am documented in this encounter Plan of Treatment Upcoming Encounters Date Type Department Care Team (Late st Contact Info) Description 09/17/2025 11:00 AM EDT Office Visit [facility] [address] [place] [address] Jameel Daly MD [address] [facility] [address] [facility] [place] [address] documented as of this encounter Visit Diagnoses Not on filedocumented in this encounter Care Teams Railroad Crane Operator Relationship Specialty Start Date End Date Vijay Davis MD [address] [facility] [address] [address] PCP - General 08/12/22 documented as of this encounter
--- OUTSIDE RECORDS SUMMARY | 2025-07-05 11:38 | XMS_ITS | Patient Health Record ---
Author Organization [facility] in [place] Address [address] [place] [address] Care Team Providers Care Ar Manager Name Role Phone King Davis Primary Care Provider [phone] Duyen Rogers Unavailable [phone] Allergies Allergen (clinical drug ingredient) Drug/Non Drug Allergy documented on EMR Reaction Allergy Type Onset Date Status promethazine Phenergan anaphylaxis Drug Allergy Ac tive suvorexant Belsomra Unknown Drug Allergy Active Results Component Value Reference Range Notes LIPASE Reviewed date:08/14/2024 04:18:18 PM Interpretation: Performing Lab: Notes/Report: [facility] , Lipase 16.0 16.0-77.0 U/L Performing Lab: see note ML - [facility] LB CBC AUTO DIFF Reviewed date:12/18/2024 01:01:24 PM Interpretation: Performing Lab: Notes/Report: [facility] , White Blood Count 7.2 4.0-11.0 [...] 10 3/uL Performing Lab: see note - [facility] LB IRON Reviewed date:12/18/2024 01:01:24 PM Interpretation: Performing Lab: Notes/Report: [facility] , Iron 76.0 50.0-170.0 ug/dL Performing Lab: see note - [facility] C. Difficile PCR Reviewed date:07/10/2024 08:30:02 AM Interpretation: Performing Lab: Notes/Report: [facility] , C. Difficile PCR NEGATIVE NEGATIVE Performing Lab: see note - [facility] E coli Shiga Toxin EIA Reviewed date:07/13/2024 04:10:06 PM Interpretation: Performing Lab: Notes/Report: [facility] , E coli Shiga Toxin EIA See Below For Report E coli Shiga Toxin EIA WILL FOLLOW E coli Shiga Toxin EIA Negative E coli Shiga Toxin EIA WILL FOLLOW E coli Shiga Toxin EIA Performed at: - [facility] E coli Shiga Toxin EIA WILL FOLLOW E coli Shiga Toxin EIA [address], [place] [id number] E coli Shiga Toxin EIA WILL FOLLOW E coli Shiga Toxin EIA General Utility Worker: Ethan Novoa PhD, Phone: [phone] E coli Shiga Toxin EIA WILL FOLLOW Performing Lab: see note - [facility] LB SEE REPORT - Ice Plant Operator Id information not found for OBX-specific producer arborist manager legend Salmonella/Shigella Screen Reviewed date:07/13/2024 04:10:06 PM Interpretation: Performing Lab: Notes/Report: [facility] , Salmonella/Shigella Screen See Below For Report Salmonella/Shigella Screen Salmonella/Shigella Screen No Salmonella or Shigella recovered. Salmonella/Shigella Screen Performing Lab: see note LC - [facility] LB Campylobacter Culture Reviewed date:07/13/2024 04:10:06 PM Interpretation: Performing Lab: Notes/Report: [facility] , Campylobacter Culture See Below For Report Campylobacter Culture No Campylobacter species isolated. Performing Lab: see note LC - [facility] LB CA echo doppler complete Reviewed date:07/13/2024 08:30:44 PM Interpretation: Performing Lab: Notes/Report: Source Facility: [place] [address] Cardiology Report Signed Patient: SYLVIA HERRERA MR#: [id number] : 1945 Acct:[id number] Age/Sex: 78 / F ADM Date: 07/13/24 Loc: CARD Attending Dr: ANISHA DINH Ordering Physician: ANISHA DINH Date of Service: 07/13/24 Procedure(s): CA echo doppler complete Accession Number(s): [id number] cc: Vijay Davis M.D.; ANISHA DINH Patient Name: SYLVIA HERRERA MR#: [id number] : 1945 Exam Date: 07/13/2024 Ordering Doctor: [...] Signed By: 07/13/24 1248 DD/ 1247 TD/TT: Library Services Dean: [place] [address] Cardiology Report Signed Patient: SYLVIA HERRERA MR#: [id number] : 1945 Acct:[id number] Age/Sex: 78 / F ADM Date: 07/13/24 Loc: CARD Attending Dr: ANISHA DINH Ordering Physician: ANISHA DINH Date of Service: 07/13/24 Procedure(s): CA ech o doppler complete Accession Number(s): [id number] cc: Vijay Davis M.D. ; ANISHA DINH Patient Name: SYLVIA HERRERA MR#: [id number] : 1945 Exam Date: 07/13/2024 Ordering Doctor: [...] Signed By: 07/13/24 1248 DD/ 1247 TD/TT: Library Services Dean: MAGNESIUM Reviewed date:07/24/2024 04:13:25 PM Interpretation: Performing Lab: Notes/Report: [facility] , Magnesium 1.3 1.8-2.4 mg/dL Performing Lab: see note ML - [facility] LB PROF 14(COMP METB) Reviewed date:07/24/2024 04:13:25 PM Interpretation: Performing Lab: Notes/Report: [facility] , Sodium 133 136-145 mmol/L Potassium [...] 1.4 Performing Lab: see note ML - [facility] LB CBC AUTO DIFF Reviewed date:08/03/2024 11:58:29 AM Interpretation: Performing Lab: Notes/Report: [facility] , White Blood Count 6.4 4.0-11.0 [...] Performing Lab: see note ML - [facility] LB LACTATE or LACTIC ACID Reviewed date:08/03/2024 11:58:29 AM Interpretation: Performing Lab: Notes/Report: [facility] , Lactate/Lactic Acid 0.8 0.4-2.0 mmol/L Performing Lab: see note ML - [facility] LB LIPASE Reviewed date:08/03/2024 11:58:29 AM Interpretation: Performing Lab: Notes/Report: [facility] , Lipase 456.0 16.0-77.0 U/L Performing Lab: see note ML - [facility] LB PROF 14(COMP METB) Reviewed date:08/03/2024 11:58:29 AM Interpretation: Performing Lab: Notes/Report: [facility] , Sodium 135 136-145 mmol/L Potassium [...] Performing Lab: see note ML - [facility] LB TSH Reviewed date:08/03/2024 11:58:29 AM Interpretation: Performing Lab: Notes/Report: [facility] , Thyroid Stimulating Hormone 1.916 0.358-3.740 uIU/mL Performing Lab: see note ML - [facility] LB UA (CLEAN or CATCH) FOUNTAIN CLERK or M ICRO IF IND. Reviewed date:08/03/2024 11:58:29 AM Interpretation: Performing Lab: Notes/Report: [facility] , Color Urine LT. YELLOW YELLOW Clarity Urine CLEAR CLEAR Specific Cascade Urine 1.010 1.005-1.025 pH Urine 6.0 5.0-9.0 Protein Urine NEGATIVE NEG/TRACE mg/dL Glucose Urine UA NEGATIVE NEGATIVE mg/dL Bilirubin Urine NEGATIVE NEGATIVE Ketones Urine NEGATIVE NEGATIVE mg/dL Blood Urine TRACE-I NEGATIVE Nitrite Urine POSITIVE NEGATIVE Urobilinogen Urine 0.2 0.2-1.0 EU/dL Leukocyte Esterase Urine MODERATE NEGATIVE Urine Microscopic Indicated YES Performing Lab: see note ML - [facility] LB URINE MICROSCOPIC ONLY Reviewed date:08/03/2024 11:58:29 AM Interpretation: Performing Lab: Notes/Report: [facility] , WBC Urine 10-20 NONE SEEN [...] YES Performing Lab: see note ML - [facility] LB Troponin I High Sensitivity Reviewed date:08/03/2024 11:58:29 AM Interpretation: Performing Lab: Notes/Report: [facility] , Troponin I High Sensitivity 5.6 4.0-51.3 pg/mL CUT-OFF POINTS HAVE BEEN ESTABLISHED BASED ON THE FOURTH UNIVERSAL DEFINITION OF MYOCARDIAL INFARCTION. THE UPPER REFERENCE LIMIT (URL) OF TROPONIN, DEFINED THE 99TH PERCENTILE OF cTnI DISTRIBUTION IN A REFERENCE POPULATION, HAS BEEN CONFIRMED THE DECISION THRESHOLD FOR [place] DIAGNOSIS. 99TH PERCENTILE = 51.4 PG/ML NOTE: HIGH-SENSITIVITY TROPONIN ASSAY IS NOT INTENDED TO BE USED IN ISOLATION BUT SHOULD BE INTERPRETED IN CONJUNCTION WITH OTHER DIAGNOSTIC AND CLINICAL INFORMATION. Performing Lab: see note ML - [facility] LB SARS-CoV-2 Ag* Reviewed date:08/03/2024 11:58:29 AM Interpretation: Performing Lab: Notes/Report: [facility] , SARS-CoV-2 Ag NEGATIVE NEGATIVE This [...] Performing Lab: see note ML - [facility] LB Urine Culture, Routine Reviewed date:08/05/2024 08:31:32 PM [...] Status Urine Culture, Routine [facility] Urine Culture, Routine Organism: Gram negative rick : O:GNR Isolated O:RAOORN Isolated Organism: 1.2 Antibiotic Interpretation ROWAN Status Urine Culture, Routine [address], [place] [id number] Urine Culture, Routine Organism: Gram negative rick : O:GNR Isolated O:RAOORN Isolated Organism: 1.2 Antibiotic Interpretation ROWAN Status Urine Culture, Routine General Utility Worker: Ethan Novoa PhD, Phone: [phone] Urine Culture, Routine Organism: Gram negative rick [...] LC - [facility] LB SEE REPORT - Ice Plant Operator Id information not found for OBX-specific producer arborist manager legend ECG 12 lead Reviewed date:08/03/2024 02:13:55 PM Interpretation: Performing Lab: Notes/Report: Source Facility: [place] [address] [place] [address] Electrocardiograph Report Signed Patient: SYLVIA HERRERA MR#: [id number] : 1945 Acct:[id number] Age/Sex: 78 / F ADM Date: 08/02/24 Loc: ER Attending Dr: Ordering Physician: Cristhian Snyder Date of Service: 08/02/24 Procedure(s): ECG 12 lead Accession Number(s): [id number] cc: [facility] Test Date: 2024-08-02 Pat Name: SYLVIA HERRERA Department: Room: - Gender: Female Psychiatry Resident: : 1945 Requested By: VIJAY DAVIS Order Number: [id number] Reading MD: VIJAY DAVIS Measurements Intervals [place] Rate: 72 P: 35 IL: 168 QRS: 79 QRSD: 100 T: 1 QT: 400 QTc: 424 Interpretive Statements 1100 Sinus rhythm 2440 Incomplete right bundle branch block Non-Specific T wave inversion in III 9150 abnormal ECG Compared to ECG 12/30/2023 16:28:00 No significant changes Electronically Signed On 08-03-2024 12:34:57 EDT by VIJAY DAVIS Dictated By: Vijay Davis M.D. Signed By: 08/03/24 1235 DD/ 1655 TD/TT: Library Services Dean: [place] [address] Electrocardiograph Report Signed Patient: SYLVIA HERRERA MR#: [id number] : 1945 Acct:[id number] Age/Sex: 78 / F ADM Date: 08/02/24 Loc: ER Attending Dr: Ordering Physician: Cristhian Snyder Date of Service: 08/02/24 Procedure(s): ECG 12 lead Accession Number(s): [id number] cc: [facility] Test Date: 2024-08-02 Pat Name: SYLVIA Mark Department: 41 Room: - Gender: Female Psychiatry Resident: : 1945 Requ ested By: VIJAY DAVIS Order Number: [id number] Reading MD: VIJAY DAVIS Measurements Intervals [place] Rate: 72 P: 35 IL: 168 QRS: 79 QRSD: 100 T: 1 QT: 400 QTc: 424 Interpretive Statements 1100 Sinus rhythm 2440 Incomplete righ t bundle branch block Non-Specific T wave inversion in III 9150 abnormal ECG Compared to ECG 12/30/2023 16:28:00 No significant changes Electronically Kelly d On 08-03-2024 12:34:57 EDT by VIJAY DAVIS Dictated By: Jordin Davis M.D. Signed By: 08/03/24 1235 DD/ 1655 TD/TT: Library Services Dean: JULIO MORELAND W or MICROSCOPIC Reviewed date:08/14/2024 04:18:18 PM Interpretation: Performing Lab: Notes/Report: [facility] , Color Urine YELLOW YELLOW Clarity Urine CLEAR CLEAR Specific Cascade Urine 1.025 1.005-1.025 pH Urine 5.5 5.0-9.0 [...] ORDERED Performing Lab: see note ML - [facility] LB Urine Culture, Routine Reviewed date:08/14/2024 04:18:18 PM Interpretation: Performing Lab: Notes/Report: [facility] , Urine Culture, Routine See Below For Report Urine Culture, Routine Urine Culture, Routine Mixed urogenital boris Urine Culture, Routine Urine Culture, Routine 25,000-50,000 col lei forming units per mL Urine Culture, Routine Urine Culture, Routine Performed at: [facility] Urine Culture, Routine Urine Culture, Routine [address], [place] [phone] Urine Culture, Routine Urine Culture, Routine General Utility Worker: Ethan Novoa PhD, Phone: [phone] Urine Culture, Routine Performing Lab: see note LC - [facility] LB SEE REPORT - Ice Plant Operator Id information not found for OBX-specific producer arborist manager legend IRON Reviewed date:09/11/2024 01:59:27 PM Interpretation: Performing Lab: Notes/Report: ADD ON [facility] , Iron 43.0 50.0-170.0 ug/dL Performing Lab: see note ML - [facility] LB CA echo doppler complete Reviewed date:09/27/2024 09:22:20 PM Interpretation: Performing Lab: Notes/Report: Source Facility: [facility] [place] [address] [place] [address] Cardiology Report Signed Patient: SYLVIA HERRERA MR#: [id number] : 1945 Acct:[id number] Age/Sex: 78 / F ADM Date: 09/25/24 Loc: CARD Attending Dr: ANISHA DINH Ordering Physician: ANISHA DINH Date of Service: 09/25/24 Procedure(s): CA echo doppler complete Accession Number(s): [id number] cc: Vijay Davis M.D.; ANISHA DINH Patient Name: SYLVIA HERRERA MR#: [id number] : 1945 Exam Date: 09/25/2024 Ordering Doctor: [...] Area (VTI): 1.65 cm2, 1.[address] [place]: 1.17 m/s2 Pressure Half-Time: 983.11 ms Peak [...] M.D. Signed By: 09/25/241651 DD/ 50 TD/TT: Library Services Dean: [place] [address] Cardiology Report Signed Patient: SYLVIA HERRERA MR#: [id number] : 1945 Acct:[id number] Age/Sex: 78 / F ADM Date: 09/25/24 Loc: CARD Attending Dr: ANISHA DINH Ordering Physician: ANISHA DINH Date of Service: 09/25/24 Procedure(s): CA ech o doppler complete Accession Number(s): [id number] cc: Vijay Davis M.D. ; ANISHA DINH Patient Name: SYLVIA HERRERA MR#: [id number] : 1945 Exam Date: 09/25/2024 Ordering Doctor: [...] Area (VTI): 1.65 cm2, 1.[address] [place]: 1.17 m/s2 Pressure Half-Time: 983.11 ms Peak [...] M.D. Signed By: 09/25/241651 DD/ 50 TD/TT: Library Services Dean: LACTATE or LACTIC ACID Reviewed date:01/05/2025 02:20:10 PM Interpretation: Performing Lab: Notes/Report: [facility] , Lactate/Lactic Acid 0.9 0.4-2.0 mmol/L Performing Lab: see note ML - [facility] LB LIPASE Reviewed date:01/05/2025 02:20:11 PM Interpretation: Performing Lab: Notes/Report: [facility] , Lipase 16.0 16.0-77.0 U/L Performing Lab: see note ML - [facility] LB PROF 14(COMP METB) Reviewed date:01/05/2025 02:20:11 PM Interpretation: Performing Lab: Notes/Report: [facility] , Sodium 138 136-145 mmol/L Potassium 3.2 3.5-5.1 mmol/L Chloride 104 98-107 mmol/L Carbon Dioxide 10.9 21.0-32.0 mmol/L Anion Gap 26.3 Glucose 136 74-106 mg/dL Blood Urea Nitrogen 116.0 7.0-18.0 mg/dL RESULTS CALLED TO HATTIE MERIDA RN @BY Quin Dawson at 2219 Creatinine 5.97 0.55-1.02 mg/dL RESULTS CALLED TO [...] Performing Lab: see note ML - [facility] LB Troponin I High Sensitivity Reviewed date:01/05/2025 02:20:11 PM Interpretation: Performing Lab: Notes/Report: [facility] , Troponin I High Sensitivity 9.8 4.0-51.3 pg/mL CUT-OFF POINTS HAVE BEEN ESTABLISHED BASED ON THE FOURTH UNIVERSAL DEFINITION OF MYOCARDIAL INFARCTION. THE UPPER REFERENCE LIMIT (URL) OF TROPONIN, DEFINED THE 99TH PERCENTILE OF cTnI DISTRIBUTION IN A REFERENCE POPULATION, HAS BEEN CONFIRMED THE DECISION THRESHOLD FOR [place] DIAGNOSIS. 99TH PERCENTILE = 51.4 PG/ML NOTE: HIGH-SENSITIVITY TROPONIN ASSAY IS NOT INTENDED TO BE USED IN ISOLATION BUT SHOULD BE INTERPRETED IN CONJUNCTION WITH OTHER DIAGNOSTIC AND CLINICAL INFORMATION. Performing Lab: see note ML - [facility] LB XR chest 1V Reviewed date:01/05/2025 02:20:11 PM Interpretation: Performing Lab: Notes/Report: Source Facility: [facility]-[address] [place] [address] [place] [address] XRay Report Signed Patient: SYLVIA HERRERA MR#: [id number] : 1945 Acct:[id number] Age/Sex: 79 / F ADM Date: 01/04/25 Loc: ER Attending Dr: Ordering Physician: Elisa Ghosh Date of Service: 01/04/25 Procedure(s): XR chest 1V Accession Number(s): [id number] cc: Vijay Davis M.D.; Elisa Ghosh [place] [address] Patient Name: SYLVIA HERRERA MRN: [id number] date: 1945 Sex: F Assigned Patient Location: ED.MAIN Current Patient Location: ER Accession/Order Number: [id number] Exam Date: 01/04/2025 21:55 Report Date: 01/04/2025 [...] M.D. Signed By: 01/04/252218 DD/ 15 TD/TT: Library Services Dean: [place] [address] XRay Report Signed Patient: SYVLIA HERRERA MR#: [id number] : 1945 Acct:[id number] Age/Sex: 79 / F ADM Date: 01/04/25 Loc: ER Attending Dr: Ordering Physician: Elisa Ghosh Date of Service: 01/04/25 Procedure(s): XR chest 1V Accession Number(s): [id number] cc: Vijay Davis M.D. ; Elisa Ghosh [address] [address] Patient Name: SYLVIA HERRERA MRN: [id number] date: 1945 Sex: F Assigned Patient Location: ED.MAIN Current Patient Loca tion: ER Accession/Order Numb er: [id number] Exam Date: 01/04/2025 21:55 Report Date: 01/04/2025 [...] By: Maria Elena Medina M.D. Signed By: 01/04/252218 DD/ 15 TD/TT: Library Services Dean: BNP Reviewed date:01/05/2025 02:20:10 PM Interpretation: Performing Lab: Notes/Report: [facility] , NT Pro B Type Natriuretic Pept 3679.0 <=1800.0 pg/mL RESULTS CALLED TO anastacio morales rn Performing Lab: see note ML - [facility] LB UA RANDOM W or MICROSCOPIC Reviewed date:01/05/2025 02:20:10 PM Interpretation: Performing Lab: Notes/Report: [facility] , Color Urine LT. YELLOW YELLOW Clarity Urine CLEAR CLEAR Specific Cascade Urine 1.015 1.005-1.025 pH Urine 5.5 5.0-9.0 [...] YES Performing Lab: see note ML - [facility] LB Troponin I High Sensitivity Reviewed date:01/05/2025 02:20:10 PM Interpretation: Performing Lab: Notes/Report: [facility] , Troponin I High Sensitivity 11.3 4.0-51.3 pg/mL CUT-OFF POINTS HAVE BEEN ESTABLISHED BASED ON THE FOURTH UNIVERSAL DEFINITION OF MYOCARDIAL INFARCTION. THE UPPER REFERENCE LIMIT (URL) OF TROPONIN, DEFINED THE 99TH PERCENTILE OF cTnI DISTRIBUTION IN A REFERENCE POPULATION, HAS BEEN CONFIRMED THE DECISION THRESHOLD FOR [place] DIAGNOSIS. 99TH PERCENTILE = 51.4 PG/ML NOTE: HIGH-SENSITIVITY TROPONIN ASSAY IS NOT INTENDED TO BE USED IN ISOLATION BUT SHOULD BE INTERPRETED IN CONJUNCTION WITH OTHER DIAGNOSTIC AND CLINICAL INFORMATION. Performing Lab: see note - [facility] LB Result 2 Reviewed date:01/11/2025 07:16:13 PM Interpretation: Performing Lab: Notes/Report: [facility] , Result 2 See Below For Report Result 2 Few gram positive rods. Performing Lab: see note LC - [facility] LB Result 3 Reviewed date:01/11/2025 07:16:14 PM Interpretation: Performing Lab: Notes/Report: [facility] , Result 3 See Below For Report Result 3 COUNTER CUTTER Performing Lab: see note LC - [facility] LB Result 4 Reviewed date:01/11/2025 07:16:14 PM Interpretation: Performing Lab: Notes/Report: [facility] , Result 4 See Below For Report Result 4 COUNTER CUTTER Performing Lab: see note LC - [facility] LB Gram Stain Evaluation Reviewed date:01/11/2025 07:16:14 [...] R F Lower Respiratory Culture Performed at: [facility] Lower Respiratory Culture WILL FOLLOW O:MRSA Isolated [...] Clindamycin Clindamycin R F Lower Respiratory Culture [address] [place] [phone] Lower Respiratory Culture WILL FOLLOW O:MRSA Isolated [...] Clindamycin Clindamycin R F Lower Respiratory Culture General Utility Worker: Ryan Novoa PhD, Phone: [phone] Lower Respiratory Culture WILL FOLLOW O:MRSA Isolated [...] LC - [facility] LB SEE REPORT - Ice Plant Operator Id information not found for OBX-specific producer arborist manager legend Urine Culture, Routine Reviewed date:01/11/2025 07:16:14 PM [...] ROWAN Status Urine Culture, Routine Performed at: [facility] Urine Culture, Routine O:ECMS Isolated Organism: 1.1 Antibiotic Interpretation ROWAN Status Urine Culture, Routine [address], [place] [phone] Urine Culture, Routine O:ECMS Isolated Organism: 1.1 Antibiotic Interpretation ROWAN Status Urine Culture, Routine General Utility Worker: Ethan Novoa PhD, Phone: [phone] Urine Culture, Routine O:ECMS Isolated Organism: 1.1 [...] LC - [facility] LB SEE REPORT - Ice Plant Operator Id information not found for OBX-specific producer arborist manager legend CBC AUTO DIFF Reviewed date:01/06/2025 07:52:24 AM Interpretation: Performing Lab: Notes/Report: [facility] , White Blood Count 10.6 4.0-11.0 10 [...] 10 3/uL Performing Lab: see note - [facility] LB Anaerobic Culture Reviewed date:01/12/2025 02:35:03 PM [...] Culture O:CUTIAC Isolated Performing Lab: see note - [facility] LB Aerobic Culture Reviewed date:01/12/2025 [...] Clindamycin Clindamycin R F Aerobic Culture Organism: Chanlli n Resis Staph Aureus : Aerobic Culture [...] Clindamycin R F Aerobic Culture Performed at: [facility] Aerobic Culture O:MRSA Isolated Organism: 2.1 Antibiotic Interpretation ROWAN Status Ciprofloxacin Ciprofloxacin R F Erythromycin Erythromycin R F Gentamicin Gentamicin S F Levofloxacin Levofloxacin R F Linezolid Linezolid S F Oxacillin Oxacillin R F Penicillin Penicillin R F Rifampin Rifampin S F Tetracycline Tetracycline S F Trimethoprim/Sulfamet hoxazole Trimethoprim/Sulfamet hoxazole S F Vancomycin Vancomycin S F Clindamycin Clindamycin R F Aerobic Culture [address] [place], [place] [phone] Aerobic Culture O:MRSA Isolated Organism: 2.1 Antibiotic Interpretation ROWAN Status Ciprofloxacin Ciprofloxacin R F Erythromycin Erythromycin R F Gentamicin Gentamicin S F Levofloxacin Levofloxacin R F Linezolid Linezolid S F Oxacillin Oxacillin R F Penicillin Penicillin R F Rifampin Rifampin S F Tetracycline Tetracycline S F Trimethoprim/Sulfamet hoxazole Trimethoprim/Sulfamet hoxazole S F Vancomycin Vancomycin S F Clindamycin Clindamycin R F Aerobic Culture General Utility Worker: Brice Novoa PhD, Phone: [phone] Aerobic Culture O:MRSA Isolated Organism: 2.1 Antibiotic [...] LC - [facility] LB SEE REPORT - Ice Plant Operator Id information not found for OBX-specific producer arborist manager legend CBC AUTO DIFF Reviewed date:01/07/2025 07:57:35 AM Interpretation: Performing Lab: Notes/Report: [facility] , White Blood Count 11.2 4.0-11.0 10 [...] 3/uL Performing Lab: see note ML - [facility] PROF 14(COMP METB) Reviewed date:01/07/2025 07:57:35 AM Interpretation: Performing Lab: Notes/Report: [facility] , Sodium 140 136-145 mmol/L Potassium [...] Ratio 1.0 Performing Lab: see note - [facility] Troponin I High Sensitivity Reviewed date:01/07/2025 07:57:35 AM Interpretation: Performing Lab: Notes/Report: [facility] , Troponin I High Sensitivity 6.7 4.0-51.3 pg/mL CUT-OFF POINTS HAVE BEEN ESTABLISHED BASED ON THE FOURTH UNIVERSAL DEFINITION OF MYOCARDIAL INFARCTION. THE UPPER REFERENCE LIMIT (URL) OF TROPONIN, DEFINED THE 99TH PERCENTILE OF cTnI DISTRIBUTION IN A REFERENCE POPULATION, HAS BEEN CONFIRMED THE DECISION THRESHOLD FOR [place] DIAGNOSIS. 99TH PERCENTILE = 51.4 PG/ML NOTE: HIGH-SENSITIVITY TROPONIN ASSAY IS NOT INTENDED TO BE USED IN ISOLATION BUT SHOULD BE INTERPRETED IN CONJUNCTION WITH OTHER DIAGNOSTIC AND CLINICAL INFORMATION. Performing Lab: see note - [facility] E coli Shiga Toxin EIA Reviewed date:01/10/2025 12:21:19 PM Interpretation: Performing Lab: Notes/Report: [facility] , E coli Shiga Toxin EIA See Below For Report E coli Shiga Toxin EIA E coli Shiga Toxin EIA Negative E coli Shiga Toxin EIA E coli Shiga Toxin EIA Performed at: [facility] E coli Shiga Toxin EIA E coli Shiga Toxin EIA [address], [place] [id number] E coli Shiga Toxin EIA E coli Shiga Toxin EIA General Utility Worker: Ethan Novoa PhD, Phone: [phone] E coli Shiga Toxin EIA Performing Lab: see note - [facility] LB SEE REPORT - Ice Plant Operator Id information not found for OBX-specific producer arborist manager legend Salmonella/Shigella Screen Reviewed date:01/12/2025 08:19:15 PM Interpretation: Performing Lab: Notes/Report: [facility] , Salmonella/Shigella Screen See Below For Report Salmonella/Shigella Screen Salmonella/Shigella Screen No Salmonella or Shigella recovered. Salmonella/Shigella Screen Performing Lab: [facility] - [facility] Campylobacter Culture Reviewed date:01/12/2025 08:19:15 PM Interpretation: Performing Lab: Notes/Report: [facility] , Campylobacter Culture See Below For Report Campylobacter Culture No Campylobacter species isolated. Performing Lab: see note - [facility] LB Occult Blood* Reviewed date:01/07/2025 06:44:23 PM Interpretation: Performing Lab: Notes/Report: [facility] , Occult Blood Negative Performing Lab: see note - [facility] LB XR chest 2V Reviewed date:01/07/2025 12:52:57 PM Interpretation: Performing Lab: Notes/Report: Source Facility: [address] [place] [address] [place] [address] XRay Report Signed Patient: SYLVIA HERRERA MR#: [id number] : 1945 Acct:[id number] Age/Sex: 79 / F ADM Date: 01/04/25 Loc: MS 204-[address]: Vijay Davis M.D. Ordering Physician: Vijay Davis M.D. Date of Service: 01/07/25 Procedure(s): XR chest 2V Accession Number(s): [id number] cc: Vijay Davis M.D. [place] [address] Patient Name: SYLVIA HERRERA MRN: [id number] date: 1945 Sex: F Assigned Patient Location: MS Current Patient Location: MS Accession/Order Number: [id number] Exam Date: 01/07/2025 08:50 Report Date: 01/07/2025 09:23 At the request of: VIJAY DAVIS Procedure: XR chest 2V EXAMINATION: XR [...] M.D. Signed By: 01/07/25925 DD/ 2 TD/TT: Library Services Dean: [place] [address] XRay Report Signed Patient: SYLVIA HERRERA MR#: [id number] : 1945 Acct:[id number] Age/Sex: 79 / F ADM Date: 01/04/25 Loc: MS 204-[address]: Ameena Davis M.D. Ordering Physician: Vijay Davis M.D. Date of Service: 01/07/25 Procedure(s): XR chest 2V Accession Number(s): [id number] cc: Vijay Davis M.D. The [address] [address] Patient Name: SYLVIA HERRERA MRN: [id number] date: 1945 Sex: F Assigned Patient Location: MS Current Patient Loca tion: MS Accession/Order Numb er: [id number] Exam Date: 01/07/2025 08:50 Report Date: 01/07/2025 09:23 At the request of: VIJAY DAVIS Procedure: XR chest 2V EXAMINATION: XR [...] M.D. Signed By: 01/07/25925 DD/ 2 TD/TT: Library Services Dean: E coli Shiga Toxin EIA Reviewed date:01/12/2025 08:19:15 PM Interpretation: Performing Lab: Notes/Report: [facility] , E coli Shiga Toxin EIA See Below For Report E coli Shiga Toxin EIA E coli Shiga Toxin EIA Negative E coli Shiga Toxin EIA E coli Shiga Toxin EIA Performed at: [facility] E coli Shiga Toxin EIA E coli Shiga Toxin EIA [address], [place] [id number] E coli Shiga Toxin EIA E coli Shiga Toxin EIA General Utility Worker: tEhan Novoa PhD, Phone: [phone] E coli Shiga Toxin EIA Performing Lab: see note - [facility] LB SEE REPORT - Ice Plant Operator Id information not found for OBX-specific producer arborist manager legend CBC AUTO DIFF Reviewed date:01/08/2025 08:53:39 AM Interpretation: Performing Lab: Notes/Report: [facility] , White Blood Count 11.7 4.0-11.0 [...] fL Performing Lab: see note ML - [facility] C. Difficile PCR Reviewed date:01/10/2025 11:23:40 AM Interpretation: Performing Lab: Notes/Report: [facility] , C. Difficile PCR NEGATIVE Performing Lab: see note - [facility] TSH W/ REFLEX FT4 Reviewed date:01/08/2025 08:53:39 AM Interpretation: Performing Lab: Notes/Report: Comment morning blood? [facility] , TSH W/ REFLEX FT4 0.885 0.358-3.740 uIU/mL Performing Lab: see note - [facility] PROF CHEM 8 (BAS METB) Reviewed date:03/07/2025 03:40:48 PM Interpretation: Performing Lab: Notes/Report: [facility] , Sodium 141 136-145 mmol/L Potassium [...] 7.7 8.5-10.1 mg/dL Performing Lab: see note - [facility] Tacrolimus (FK506), Blood Reviewed date:05/27/2025 07:36:51 PM Interpretation: Performing Lab: Notes/Report: [facility] , Tacrolimus (FK506), Blood 6.5 5.0-20.0 ng/mL This test was developed and its performance characteristics determined by [facility]. It has not been cleared or approved by the Food and Drug Administration. Target steady state trough concentration for Tacrolimus varies based on type of organ transplant immunosuppressive protocol and other patient specific factors. Tacrolimus trough concentrations should be interpreted in conjunction with clinical assessments of rejection and tolerability. Values obtained with different assay methods cannot be used interchangeably due to differences in assay methods and cross-reactivty with metabolites, nor should correction factors be applied. Therefore, consistent use of one assay for individual patients is recommended. Detection Limit = 0.5 ng/mL Performed by LC-MS/MS technology. Performed at: [address] [id number] General Utility Worker: Erica Roa MD, Phone: [phone] Performing Lab: see note [facility] PROF 14(COMP METB) Reviewed date:05/26/2025 09:22:29 PM Interpretation: Performing Lab: Notes/Report: [facility] , Sodium 138 136-145 mmol/L Potassium 5.5 3.5-5.1 mmol/L Chloride 104 98-107 mmol/L Carbon Dioxide 23.2 21.0-32.0 mmol/L Anion Gap 16.3 Glucose 105 74-106 mg/dL Blood Urea Nitrogen 61.0 7.0-18.0 mg/dL Creatinine 3.42 0.55-1.02 mg/dL Estimated GFR ( Kasandra 16 >=60 mL/min/1.73m 2 Estimated GFR (Non- Ila 13 >=60 mL/min/1.73m 2 BUN Creatinine Ratio 17.8 Calcium 6.5 8.5-10.1 mg/dL Bilirubin Total 0.4 0.2-1.0 mg/dL Aspartate Amino Transferase 29 15-37 U/L Alanine Aminotransferase 32 14-59 U/L Alkaline Phosphatase 348 46-116 U/L Total Protein 6.7 6.4-8.2 g/dL Albumin Level 3.3 3.4-5.0 g/dL Globulin 3.4 Albumin Globulin Ratio 1.0 Performing Lab: see note - [facility] LB PHOSPHORUS Reviewed date:05/26/2025 09:22:29 PM Interpretation: Performing Lab: Notes/Report: [facility] , Phosphorus 4.0 2.6-4.7 mg/dL Performing Lab: see note ML - [facility] LB MAGNESIUM Reviewed date:05/26/2025 09:22:29 PM Interpretation: Performing Lab: Notes/Report: [facility] , Magnesium 0.9 1.8-2.4 mg/dL RESULTS CALLED TO Elisa Lowe Performing Lab: see note ML - [facility] LB PROF 14(COMP METB) Reviewed date:03/15/2025 08:37:17 PM Interpretation: Performing Lab: Notes/Report: [facility] , Sodium 133 136-145 mmol/L Potassium [...] 0.9 Performing Lab: see note ML - [facility] LB PHOSPHORUS Reviewed date:03/15/2025 08:37:17 PM Interpretation: Performing Lab: Notes/Report: [facility] , Phosphorus 3.6 2.6-4.7 mg/dL Performing Lab: see note ML - [facility] LB MAGNESIUM Reviewed date:03/15/2025 08:37:17 PM Interpretation: Performing Lab: Notes/Report: [facility] , Magnesium 1.4 1.8-2.4 mg/dL Performing Lab: see note ML - [facility] LB ECG 12 lead Reviewed date:03/03/2025 07:52:00 PM Interpretation: Performing Lab: Notes/Report: Source Facility: [address] [address] [place] [address] Electrocardiograph Report Signed Patient: SYLVIA HERRERA MR#: [id number] : 1945 Acct:[id number] Age/Sex: 79 / F ADM Date: 03/03/25 Loc: ER Attending Dr: Ordering Physician: Chiquita Lester Date of Service: 03/03/25 Procedure(s): ECG 12 lead Accession Number(s): [id number] cc: [facility] Test Date: 2025-03-03 Pat Name: SYLVIA HERRERA Department: Room: - Gender: Female Psychiatry Resident: : 1945 Requested By: 1854 Order Number: [id number] Reading MD: ANISHA DINH M.D. Measurements Intervals [place] Rate: 68 P: 19 IL: 184 QRS: 100 QRSD: 98 T: 60 QT: 428 QTc: 445 Interpretive Statements 1100 Sinus rhythm 2440 Incomplete right bundle branch block 5120 Possible right ventricular hypertrophy 9130 borderline ECG Compared to ECG 01/04/2025 21:29:01 No significant change Electronically Signed On 03-03-2025 17:29:29 EDT by ANISHA DINH M.D. Dictated By: ANISHA DINH Signed By: 03/03/25 1729 DD/ 1017 TD/TT: Library Services Dean: [place] [address] Electrocardiograph Report Signed Patient: SYLVIA HERRERA MR#: [id number] : 1945 Acct:[id number] Age/Sex: 79 / F ADM Date: 03/03/25 Loc: ER Attending Dr: Ordering Physician: Chiquita Lester Date of Service: 03/03/25 Procedure(s): ECG 12 lead Accession Number(s): [id number] cc: [facility] Test Date: 2025-03-03 Pat Name: SYLVIA PENC E Department: 41 Room: - Gender: Female Psychiatry Resident: : 1945 Requ ested By: 1854 Order Number: [id number] Reading MD: ANISHA DINH M.D. Measurements Intervals [place] Rate: 68 P: 19 IL: 184 QRS: 100 QRSD: 98 T: 60 QT: 428 QTc: 445 Interpretive Statements 1100 Sinus rhythm 2440 Incomplete righ t bundle branch block 5120 Possible right ventricular hypertrophy 9130 borderline ECG Compared to ECG 01/04/2025 21:29:01 No significant change Electronically Kelly d On 03-03-2025 17:29:29 EDT by ANISHA DINH M.D. Dictated By: ANISHA DINH Signed By: 03/03/25 1729 DD/ 1017 TD/TT: Library Services Dean: PROF Cosme(COMP METB) Reviewed date:03/03/2025 07:52:00 PM Interpretation: Performing Lab: Notes/Report: [facility] , Sodium 137 136-145 mmol/L Potassium 4.5 [...] 1.0 Performing Lab: see note ML - [facility] LB CBC AUTO DIFF Reviewed date:03/03/2025 07:52:00 PM Interpretation: Performing Lab: Notes/Report: [facility] , White Blood Count 8.0 4.0-11.0 10 [...] Performing Lab: see note ML - [facility] LB PROF CHEM 8 (BAS METB) Reviewed date:03/02/2025 04:42:25 PM Interpretation: Performing Lab: Notes/Report: [facility] , Sodium 139 136-145 mmol/L Potassium [...] 7.4 8.5-10.1 mg/dL Performing Lab: see note ML - [facility] LB CBC AUTO DIFF Reviewed date:03/02/2025 04:42:25 PM Interpretation: Performing Lab: Notes/Report: [facility] , White Blood Count 9.3 4.0-11.0 [...] 3/uL Performing Lab: see note ML - [facility] LB Manual Differential Reviewed date:01/08/2025 08:53:39 AM Interpretation: Performing Lab: Notes/Report: [facility] , Segmented Neutrophils % Manual 87.0 [...] 1 0 3/uL Performing Lab: see note ML - [facility] LB PROF 14(COMP METB) Reviewed date:01/08/2025 08:53:39 AM Interpretation: Performing Lab: Notes/Report: [facility] , Sodium 139 136-145 mmol/L Potassium [...] Performing Lab: see note ML - [facility] LB MAGNESIUM Reviewed date:01/08/2025 08:53:39 AM Interpretation: Performing Lab: Notes/Report: [facility] , Magnesium 1.9 1.8-2.4 mg/dL Performing Lab: see note - [facility] LB BNP Reviewed date:01/08/2025 08:53:39 AM Interpretation: Performing Lab: Notes/Report: [facility] , NT Pro B Type Natriuretic Pept 14876.0 <=1800.0 pg/mL RESULTS CALLED TO Alex Funk RN @BY Frandy Smith [place] at 0653 Performing Lab: see note - [facility] LB US renal bladder Reviewed date:01/07/2025 12:52:57 PM Interpretation: Performing Lab: Notes/Report: Source Facility: [place] [address] Ultrasound Report Signed Patient: SYLVIA HERRERA MR#: [id number] : 1945 Acct:[id number] Age/Sex: 79 / F ADM Date: 01/04/25 Loc: MS 204-[address]: Vijay Davis M.D. Ordering Physician: Vijay Davis M.D. Date of Service: 01/07/25 Procedure(s): US renal bladder Accession Number(s): [id number] cc: Vijay Davis M.D. [place] [id number] Patient Name: SYLVIA HERRERA MRN: [facility]:[id number] date: 1945 Sex: F Assigned Patient Location: MS Current Patient Location: MS Accession/Order Number: [id number] Exam Date: 01/07/2025 07:45 Report Date: 01/07/2025 09:42 At the request of: VIJAY DAVIS Procedure: US renal bladder EXAMINATION: US [...] M.D. Signed By: 01/07/2545 DD/ 1 TD/TT: Library Services Dean: [place] [address] Ultrasound Report Signed Patient: SYLVIA HERRERA MR#: [id number] : 1945 Acct:[id number] Age/Sex: 79 / F ADM Date: 01/04/25 Loc: MS 204-[address]: Ameena Davis M.D. Ordering Physician: Vijay Davis M.D. Date of Service: 01/07/25 Procedure(s): US maria victoria al bladder Accession Number(s): [id number] cc: Vijay Davis M.D. [place] [id number] Patient Name: SYLVIA HERRERA MRN: [id number] date: 1945 Sex: F Assigned Patient Location: MS Current Patient Loca tion: MS Accession/Order Numb er: [id number] Exam Date: 01/07/2025 07:45 Report Date: 01/07/2025 09:42 At the request of: VIJAY DAVIS Procedure: US renal bladder EXAMINATION: US [...] Strickland M.D. Signed By: 01/07/2545 DD/ TD/TT: Library Services Dean: STEFANI saavedra Reviewed date:01/07/2025 12:52:57 PM Interpretation: Performing Lab: Notes/Report: Source Facility: [address] [place] [address] [place] [address] Cardiology Report Signed Patient: SYLVIA HERRERA MR#: [id number] : 1945 Acct:[id number] Age/Sex: 79 / F ADM Date: 01/04/25 Loc: MS 204-[address]: Vijay Davis M.D. Ordering Physician: Vijay Davis M.D. Date of Service: 01/06/25 Procedure(s): STEFANI saavedra Accession Number(s): [id number] cc: Vijay Davis M.D. Patient Name: SYLVIA HERRERA MR#: [id number] : 1945 Exam Date: 01/06/2025 Ordering Doctor: DR Vijay Davis . ECHOCARDIOGRAM REPORT PROCEDURE: CA ECHO [...] Signed By: 01/07/25 1014 DD/ 1013 TD/TT: Library Services Dean: The [address] [address] Cardiology Report Signed Patient: SYLVIA HERRERA MR#: [id number] : 1945 Acct:[id number] Age/Sex: 79 / F ADM Date: 01/04/25 Loc: MS 204-[address]: Ameena Davis M.D. Ordering Physician: Vijay Davis M.D. Date of Service: 01/06/25 Procedure(s): CA ech o limited Accession Number(s): [id number] cc: Vijay Davis M.D. Patient Name: SYLVIA HERRERA MR#: [id number] : 1945 Exam Date: 01/06/2025 Ordering Doctor: DR Vijay Davis . ECHOCARDIOGRAM REPORT PROCEDURE: CA ECHO [...] Signed By: 01/07/25 1014 DD/ 1013 TD/TT: Library Services Dean: MAGNESIUM Reviewed date:01/07/2025 07:57:35 AM Interpretation: Performing Lab: Notes/Report: [facility] , Magnesium 1.9 1.8-2.4 mg/dL Performing Lab: see note ML - [facility] LB BNP Reviewed date:01/07/2025 07:57:35 AM Interpretation: Performing Lab: Notes/Report: [facility] , NT Pro B Type Natriuretic Pept 70860.0 <=1800.0 pg/mL RESULTS CALLED TO ANN-MARIE PERKINS RN @BY Quin Dawson at 0637 Performing Lab: see note - [facility] LB Aerobic Culture Reviewed date:01/11/2025 07:16:13 PM Interpretation: [...] Interpretation ROWAN Status Aerobic Culture Performed at: [facility] Aerobic Culture O:MRSA Isolated Organism: 1.1 Antibiotic Interpretation ROWAN Status Aerobic Culture [address] [place], [place] [id number] Aerobic Culture O:MRSA Isolated Organism: 1.1 Antibiotic Interpretation ROWAN Status Aerobic Culture General Utility Worker: Brice Novoa PhD, Phone: [phone] Aerobic Culture O:MRSA Isolated Organism: 1.1 Antibiotic [...] LC - [facility] LB SEE REPORT - Ice Plant Operator Id information not found for OBX-specific producer arborist manager legend Blood Culture 2 Reviewed date:01/11/2025 07:16:13 PM Interpretation: Performing Lab: Notes/Report: RIGHT HAND [facility] , Blood Culture 2 See Below For Report Blood Culture 2 NG5D NO GROWTH AT 5 DAYS. Performing Lab: see note ML - [facility] LB Blood Culture 1 Reviewed date:01/11/2025 07:16:13 PM Interpretation: Performing Lab: Notes/Report: LEFT AC [facility] , Blood Culture 1 See Below For Report Blood Culture 1 NG5D NO GROWTH AT 5 DAYS. Performing Lab: see note - [facility] LB PROF 14(COMP METB) Reviewed date:01/06/2025 07:52:24 AM Interpretation: Performing Lab: Notes/Report: [facility] , Sodium 143 136-145 mmol/L Potassium [...] Performing Lab: see note ML - [facility] LB MAGNESIUM Reviewed date:01/06/2025 07:52:24 AM Interpretation: Performing Lab: Notes/Report: [facility] , Magnesium 2.1 1.8-2.4 mg/dL Performing Lab: see note - [facility] LB BNP Reviewed date:01/06/2025 07:52:24 AM Interpretation: Performing Lab: Notes/Report: [facility] , NT Pro B Type Natriuretic Pept 6324.0 <=1800.0 pg/mL RESULTS CALLED TO Stephanie Funk RN Performing Lab: see note ML - [facility] LB Result 1 Reviewed date:01/11/2025 07:16:13 PM [...] Lab: see note LC - [facility] LB Blood Culture 2 Reviewed date:01/10/2025 05:23:20 PM Interpretation: Performing Lab: Notes/Report: [facility] , Blood Culture 2 See Below For Report Blood Culture 2 NG5D NO GROWTH AT 5 DAYS. Performing Lab: see note ML - [facility] LB Blood Culture 1 Reviewed date:01/10/2025 05:23:20 PM Interpretation: Performing Lab: Notes/Report: [facility] , Blood Culture 1 See Below For Report Blood Culture 1 NG5D NO GROWTH AT 5 DAYS. Performing Lab: see note - [facility] LB PROF 14(COMP METB) Reviewed date:01/05/2025 02:20:10 PM Interpretation: Performing Lab: Notes/Report: [facility] , Sodium 140 136-145 mmol/L Potassium [...] 1.0 Performing Lab: see note ML - [facility] LB MAGNESIUM Reviewed date:01/05/2025 02:20:10 PM Interpretation: Performing Lab: Notes/Report: [facility] , Magnesium 1.2 1.8-2.4 mg/dL Performing Lab: see note ML - [facility] LB CBC AUTO DIFF Reviewed date:01/05/2025 02:20:10 PM Interpretation: Performing Lab: Notes/Report: [facility] , White Blood Count 12.7 4.0-11.0 [...] 3/uL Performing Lab: see note ML - [facility] LB ECG 12 lead Reviewed date:01/05/2025 02:20:10 PM Interpretation: Performing Lab: Notes/Report: Source Facility: [place] [address] Electrocardiograph Report Signed Patient: SYLVIA HERRERA MR#: [id number] : 1945 Acct:[id number] Age/Sex: 79 / F ADM Date: 01/04/25 Loc: MS 204-[address]: Vijay Davis M.D. Ordering Physician: Elisa Ghosh Date of Service: 01/04/25 Procedure(s): ECG 12 lead Accession Number(s): [id number] cc: [facility] Test Date: 2025-01-04 Pat Name: SYLVIA HERRERA Department: Room: - Gender: Female Psychiatry Resident: : 1945 Requested By: VIJAY DAVIS Order Number: [id number] Reading MD: MAN HAIDER Measurements Intervals [place] Rate: 89 P: -30 IL: 162 QRS: 95 QRSD: 104 T: 56 QT: 406 QTc: 453 Interpretive Statements 1100 Sinus rhythm 2440 Incomplete right bundle branch block 4068 Nonspecific Twave abnormality 7102 Moderate right axis deviation 8304 Long QTc interval 9150 abnormal ECG Electronically Signed On 01-05-2025 6:57:06 EST by MAN HAIDER Dictated By: Man Haider D.O. Signed By: 01/05/25656 DD/ 28 TD/TT: Library Services Dean: [place] [address] Electrocardiograph Report Signed Patient: SYLVIA HERRERA MR#: [id number] : 1945 Acct:[id number] Age/Sex: 79 / F ADM Date: 01/04/25 Loc: MS 204-[address]: Ameena Davis M.D. Ordering Physician: Elisa Ghosh Date of Service: 01/04/25 Procedure(s): ECG 12 lead Accession Number(s): [id number] cc: [facility] Test Date: 2025-01-04 Pat Name: SYLVIA Mark Department: 41 Room: - Gender: Female Psychiatry Resident: : 1945 Requ ested By: VIJAY DAVIS Order Number: [id number] Reading MD: MAN HAIDER Measurements Intervals [place] Rate: 89 P: -30 IL: 162 QRS: 95 QRSD: 104 T: 56 QT: 406 QTc: 453 Interpretive Statements 1100 Sinus rhythm 2440 Incomplete righ t bundle branch block 4068 Nonspecific Twa ve abnormality 7102 Moderate right axis deviation 8304 Long QTc interval 9150 abnormal ECG Electronically Kelly d On 01-05-2025 6:57:06 EST by MAN HAIDER Dictated By: Man Haider D.O. Signed By: 01/05/2557 DD/ 28 TD/TT: Library Services Dean: SARS-CoV-2 Ag* Reviewed date:01/05/2025 02:20:11 PM Interpretation: Performing Lab: Notes/Report: [facility] , SARS-CoV-2 Ag NEGATIVE NEGATIVE This [...] Performing Lab: see note ML - [facility] LB INFLUENZA A AND B AG Reviewed date:01/05/2025 02:20:11 PM Interpretation: Performing Lab: Notes/Report: [facility] , Influenza Virus A Antigen Negative [...] Performing Lab: see note ML - [facility] LB CBC AUTO DIFF Reviewed date:01/05/2025 02:20:11 PM Interpretation: Performing Lab: Notes/Report: [facility] , White Blood Count 13.9 4.0-11.0 [...] 3/uL Performing Lab: see note ML - [facility] LB Tacrolimus (FK506), Blood Reviewed date:01/05/2025 02:20:11 PM Interpretation: Performing Lab: Notes/Report: [facility] , Tacrolimus (FK506), Blood 7.3 2.0-20.0 ng/mL [...] to: 5.0 - 20.0 ng/mL Performed at: [address] [id number] General Utility Worker: Erica Roa MD, Phone: [phone] Performing Lab: see note - [facility] LB PROF CHEM 8 (BAS METB) Reviewed date:12/14/2024 08:10:41 PM Interpretation: Performing Lab: Notes/Report: [facility] , Sodium 143 136-145 mmol/L Potassium 4.2 3.5-5.1 mmol/L Chloride 111 98-107 mmol/L Carbon Dioxide 19.3 21.0-32.0 mmol/L Anion Gap 16.9 Glucose 123 74-106 mg/dL Blood Urea Nitrogen 43.0 7.0-18.0 mg/dL Creatinine 2.59 0.55-1.02 mg/dL Estimated GFR ( Kasandra 22 >=60 mL/min/1.73m 2 Estimated GFR (Non- Ila 18 >=60 mL/min/1.73m 2 BUN Creatinine Ratio 16.6 Calcium 8.2 8.5-10.1 mg/dL Performing Lab: see note ML - [facility] LB Tacrolimus (FK506), Blood Reviewed date:09/09/2024 08:40:00 PM Interpretation: Performing Lab: Notes/Report: [facility] , Tacrolimus (FK506), Blood 9.2 2.0-20.0 ng/mL This test was developed and its performance characteristics determined by [facility]. It has not been cleared or approved by the Food and Drug Administration. Trough (immediately following transplant) 15.0 Trough (steady state, 2 weeks or more after transplant): 3.0 - 8.0 Performed by LC-MS/MS technology. Performed at: [address] [id number] General Utility Worker: Erica Roa MD, Phone: [phone] Performing Lab: see note - [facility] PROF 14(COMP METB) Reviewed date:09/07/2024 02:54:16 PM Interpretation: Performing Lab: Notes/Report: [facility] , Sodium 132 136-145 mmol/L Potassium [...] 1.2 Performing Lab: see note ML - [facility] LB CBC AUTO DIFF Reviewed date:09/07/2024 02:54:16 PM Interpretation: Performing Lab: Notes/Report: [facility] , White Blood Count 11.0 4.0-11.0 [...] Performing Lab: see note ML - [facility] LB PROF 14(COMP METB) Reviewed date:07/09/2024 10:02:18 AM Interpretation: Performing Lab: Notes/Report: [facility] , Sodium 134 136-145 mmol/L Potassium [...] 1.4 Performing Lab: see note ML - [facility] LB MAGNESIUM Reviewed date:07/09/2024 10:02:18 AM Interpretation: Performing Lab: Notes/Report: [facility] , Magnesium 1.1 1.8-2.4 mg/dL Performing Lab: see note ML - [facility] LB CBC AUTO DIFF Reviewed date:07/09/2024 10:02:18 AM Interpretation: Performing Lab: Notes/Report: [facility] , White Blood Count 7.8 4.0-11.0 [...] 10 3/uL Performing Lab: see note - [facility] LB Tacrolimus (FK506), Blood Reviewed date:07/12/2024 10:23:10 AM Interpretation: Performing Lab: Notes/Report: [facility] , Tacrolimus (FK506), Blood 13.7 2.0-20.0 ng/mL This test was developed and its performance characteristics determined by [facility]. It has not been cleared or approved by the Food and Drug Administration. Trough (immediately following transplant) 15.0 Trough (steady state, 2 weeks or more after transplant): 3.0 - 8.0 Performed by LC-MS/MS technology. Performed at: [facility] [address] [id number] General Utility Worker: Erica Roa MD, Phone: [phone] Performing Lab: see note - [facility] LB US abdomen complete Reviewed date:09/28/2024 08:23:37 AM Interpretation: Performing Lab: Notes/Report: Source Facility: [place] [address] Ultrasound Report Signed Patient: SLYVIA HERRERA MR#: [id number] : 1945 Acct:[id number] Age/Sex: 78 / F ADM Date: 09/25/24 Loc: US Attending Dr: DUYEN ROGERS Ordering Physician: DUYEN ROGERS Date of Service: 09/25/24 Procedure(s): US abdomen complete Accession Number(s): [id number] cc: DUYEN ROGERS ; Vijay Davis M.D. [place] [address] Patient Name: SYLVIA HERRERA MRN: [id number] date: 1945 Sex: F Assigned Patient Location: US Current Patient Location: Accession/Order Number: [id number] Exam Date: 09/25/2024 08:37 Report Date: 09/27/2024 05:50 At the request of: DUYEN ROGERS Procedure: US abdomen complete EXAMINATION: US [...] Juan M.D. Signed By: 09/27/2453 DD/ TD/TT: Library Services Dean: [place] [address] Ultrasound Report Signed Patient: SYLVIA HERRERA MR#: [id number] : 1945 Acct:[id number] Age/Sex: 78 / F ADM Date: 09/25/24 Loc: US Attending Dr: DUYEN ROGERS Ordering Physician: DUYEN ROGERS Date of Service: 09/25/24 Procedure(s): US abd omen complete Accession Number(s): [id number] cc: DUYEN ROGERS ; Vijay Davis M.D. The [address] [address] Patient Name: SYLVIA HERRERA MRN: [id number] date: 1945 Sex: F Assigned Patient Location: Current Patient Location: Accession/Order Numb er: [id number] Exam Date: 08:37 Report Date: 09/27/2024 05:50 [...] Signed By: 09/27/24 0553 DD/ 0550 TD/TT: Library Services Dean: TSH Reviewed date:09/07/2024 02:54:17 PM Interpretation: Performing Lab: Notes/Report: [facility] , Thyroid Stimulating Hormone 3.142 0.358-3.740 uIU/mL Performing Lab: see note ML - [facility] LB MAGNESIUM Reviewed date:09/07/2024 02:54:17 PM Interpretation: Performing Lab: Notes/Report: [facility] , Magnesium 1.3 1.8-2.4 mg/dL Performing Lab: see note ML - [facility] LB Reason For Referral Diagnosis 1 Chronic kidney disea se, stage 4 (severe) (N18.4) Referral Organization [facility] Referring Provider First Name Duyen Referring Provider Last Name Val Referring Provider [facility] Referred Provider Apolinar Wharton Referred Provider Specialty Nephrology Referral Priority Routine Diagnosis 1 Vertigo (R42) Referral Organization [facility] Referring Provider First Name Duyen Referring Provider Last Name Val Referring Provider [facility] zhao Referred Provider [facility] Referred Provider Specialty Neurology Referral Priority Routine Reason wt loss, Diagnosis 1 Unintentional weight loss (R63.4) Referral Organization [facility] Referring Provider First Name Duyen Referring Provider Last Name Val Referring Provider [facility] Referred Provider Caryl Chirinos Referred Provider Specialty Gastroentero logy Referral Priority Routine Diagnosis 1 Unintentional weight loss (R63.4) Referral Organization [facility] Referring Provider First Name Duyen Referring Provider Last Name Val Referring Provider [facility] Referred Provider Azam Carrillo Referred Provider Specialty Gastroentero logy Referral Priority Routine Diagnosis 1 Unintentional weight loss (R63.4) Referral Organization [facility] Referring Provider First Name Duyen Referring Provider Last Name Val Referring Provider [facility] Referred Provider González Shanks Referred Provider Specialty Gastroentero logy Referral Priority Routine Diagnosis 1 Heart transplant rec ipient (Z94.1) Diagnosis 2 Bronchitis (J40) Diagnosis 3 Weakness (R53.1) Referral Organization [facility] Referring Provider First Name King Referring Provider Last Name Ryan Referring Provider [facility] Referred Provider [facility] Referred Provider [facility] Referral Priority Routine Diagnosis 1 Chronic kidney disea se (CKD) stage G3a/A1, moderately decreased glomerular filtration rate (GFR) between 45-59 mL/min/1.73 square meter and albuminuria creatinine ratio less than 30 mg/g (N18.31) Referral Organization [facility] Referring Provider First Name King Referring Provider Last Name Ryan Referring Provider [facility] zhao Referred Provider Specialty Nephrology Referral Priority Routine Medications Medication SIG (Take, Route, Frequency, Duration) Notes Start Date End Date Status Blood Pressure Monitor - as directed Active Simvastatin 20 MG take 1 tablet by bettina th every evening for 90 Active Brimonidine Tartrate 0.2 % 1 drop into a ffected eye Ophthalmic three times daily 02/03/2025 Active Sodium Bicarbonate 650 MG 1 tablet Orally TID 04/2025 Active clonazePAM 1 MG 1 tablet Orally BID for 7 days As needed 07/05/2025 Active Synthroid 112 MCG 1 tablet in the morn ing on an empty stomach Orally Once a day for 90 days Active Doxepin HCl 10 MG 1 capsule at bedtime Orally Once a day for 30 days 02/03/2025 Active Ergocalciferol 1.25 MG (59147 UT) 1 capsule Orally once weekly 02/03/2025 Active Creon 13165-72424 UNIT take 3 capsules O rally three times daily for 30 days Active Tacrolimus 1 MG 1 capsule Orally BID Active Dorzolamide HCl 2 % 1 drop into affected eye Ophthalmic twice daily 02/03/2025 Active Timolol Maleate 0.5 % 1 drop into affect ed Ophthalmic twice daily 02/03/2025 Active Amitriptyline HCl 10 MG 1 tablet Orally at bedtime 02/03/2025 Active Magnesium Oxide 400 MG 1 tablet Orally B ID for 30 days Active Aspirin 81 81 MG 1 tablet Orally Once a day Active Mycophenolate Mofetil 250 MG 1 capsule O rally Twice a day for 30 days 02/03/2025 Active Acetaminophen 325 MG 1-2 tablet as neede d Orally every 4 hrs 02/03/2025 Active Latanoprost 0.005 % 1 drop into affected eye Ophthalmic at bedtime 02/03/2025 Active Alendronate Sodium 70 MG 1 tablet 30 min utes before the first food Orally once weekly 02/03/2025 Active Loperamide HCl 2 MG 1 capsule Orally twi ce daily 02/03/2025 Active Immunizations Vaccine Route Administration Date Status Comme nts DTP - historic Unknown 02/09/2021 Administered Flu, Fluad (24671) 65 yrs + High Dose Seasonal (8107-3477) Unknown 08/04/2015 Administered Flu, Fluad (85517) 65 yrs + High Dose Seasonal (3919-2693) Unknown 08/14/2016 Administered Flu, Fluad (12779) 65 yrs + High Dose Seasonal () Unknown 09/02/2017 Administered Flu, Fluad (04081) 65 yrs+, single-dose syringe (9037-9019) Unknown 09/28/2023 Administered Flu, Fluzone (00811) 6 mos+, single-dose syringe/vial (6690-1875) Unknown 07/24/2020 Administered Flu, Fluzone (53293) 6 mos+, single-dose syringe/vial (1442-6965) Unknown 07/05/2021 Administered Flu, Fluzone High-Dose (2022 -2023) (24027) 65 yrs+ Unknown 07/14/2022 Administered Pneumococcal (Prevnar [...] Problem Status W/U Status Risk Notes Problem 59412522 Essential (primary) hypertension (I10) Active confirmed Problem Hypothyroidism (16775649) Hypothyroidism, unspecified (E03.9) Active confirmed Problem Hyperlipidemia (12712577) Hyperlipidemia, unspecified (E78.5) Active confirmed Problem Hypomagnesemia (899978324) Hypomagnesemia (E83.42) Active confirmed Problem 079203171 Anxiety disorder , unspecified (F41.9) Active confirmed Problem 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, 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) Active confirmed Problem Pain of right shoulder region (finding) (7382931678) Pain in right shoulder (M25.511) Active confirmed Problem 517605027 Chronic kidney disease, stage 4 (severe) (N18.4) Active confirmed Problem Weakness (15767034) Weakness (R53.1) Active con firmed Problem Chest pain (46569469) Chest pain (R07.9) Active confirmed Problem Fatigue (29303403) Fatigue (R53.83) Active conf irmed Problem Hypertension (67675566) Hypertension (I10) Active confirmed Problem Pneumonia (294664441) Pneumonia (J18.9) Active confirmed Problem Depression (803276795) Depression (F32.9) Active confirmed Problem Osteopenia (309950741) Osteopenia (M85.80) Active confirmed Problem Vertigo (552267980) Vertigo (R42) Active confir med Problem Insomnia (270211798) Insomnia (G47.00) Active confirmed Problem Bilateral lower extremity edema (551181900) Bilateral lower extremity edema (R60.0) Active confirmed Problem Syncope (639792591) Syncope (R55) Active confir med Problem Nausea (221586168) Nausea (R11.0) Active confir med Problem Bronchitis (99073872) Bronchitis (J40) Active confirmed Problem Sinusitis (85878327) Sinusitis (J32.9) Active confirmed Problem Pain in limb (14897725) Foot pain, left (M79.672) Active confirmed Problem Upper respiratory infection (86396990) URI (upper respiratory infection) (J06.9) Active confirmed Problem Pharyngitis (239488635) Pharyngitis (J02.9) Active confirmed Problem Iron deficiency anemia (48515219) Iron deficiency anemia (D50.9) Active confirmed Problem Shingles (2308579) Shingles (B02.9) Active conf irmed Problem Thrombocytopenia (992902110) Thrombocytopenia (D69.6) Active confirmed Problem Acute maxillary sinusitis (76769859) Maxillary sinusitis, acute (J01.00) Active confirmed Problem Renal disease (96429601) Renal disease (N28.9) Active confirmed Problem Laboratory test result abnormal (113092826) Abnormal laboratory test (R89.9) Active confirmed Problem Acute sinusitis (65691017) Acute sinus infection (J01.90) Active confirmed Problem Laboratory test result abnormal (162712425) Elevated lipase (R74.8) Active confirmed Problem Leukocytosis (890791036) Leukocytosis (D72.829) Active confirmed Problem Hydronephrosis (72274817) Hydronephrosis (N13.30) Active confirmed Problem Acute renal failure syndrome (39561968) Acute kidney failure (N17.9) Active confirmed Problem Influenza (8806652) Influenza (J11.1) Active co nfirmed Problem Generalized aches and pains (44439243) Body aches (R52) Active confirmed Problem Unintentional weight loss (990969371) Unintentional weight loss (R63.4) Active confirmed Problem Atypical nevus (11399715) Atypical nevus (D22.9) Active confirmed Problem Leukocytosis (983102941) Elevated WBCs (D72.829) Active confirmed Problem Essential hypertension (84044056) BP (high blood pressure) (I10) Active confirmed Problem Central retinal vein occlusion (98414556) Central retinal vein occlusion, left eye, with macular edema (H34.8120) Active confirmed Problem Simple cyst of kidney (65026465) Simple cyst of kidney (N28.1) Active confirmed Problem Acquired thrombocytopenia (95873777) Acquired thrombocytopenia (D69.6) Active confirmed Problem Viral gastroenteritis caused by [place]-like agent (41564757) Gastroenteritis due to norovirus (A08.11) Active confirmed Problem Heart transplant recipient (934060461) Heart transplant recipient (Z94.1) Active confirmed Problem 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) Active confirmed Problem Disorder of spleen (90720628) 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) Active confirmed Problem Carcinoma in situ of skin (27362325) 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) Active confirmed Problem Chronic kidney disease stage 3A (disorder) (095537264) Chronic kidney disease (CKD) stage G3a/A1, moderately decreased glomerular filtration rate (GFR) between 45-59 mL/min/1.73 square meter and albuminuria creatinine ratio less than 30 mg/g (N18.31) Active confirmed Problem Dry cough (92133924) Dry cough (R05.8) Active confirmed Problem Postoperative ecchymosis (0359856074) Postoperative ecchymosis (R58) Active confirmed Vital Signs Blood pressure diastolic 80 mm Hg 07/05/2025 Height 62 in 07/05/2025 Blood pressure systolic 164 mm Hg 07/05/2025 Weight 107.8 lbs 07/05/2025 BMI 19.71 kg/m2 07/05/2025 Encounters Encounter Location Date Provider Diagnosis [facility] [address] [place] [address] 06/28/2025 King Hoy Hypothyroidism, unspecified E03.9 [facility] [address] [place] [address] 07/05/2025 King Davis [facility] [address] [place] [address] 07/05/2025 King Davis [facility] [address] [place] [address] 03/03/2025 King Davis [facility] [address] [place] [address] 03/15/2025 King Davis [facility] [address] [place] [address] 04/30/2025 Duyen Rogers Diarrhea R19.7 [facility] [address] [place] [address] 05/25/2025 King Davis Hypomagnesemia E83.4 2 [facility] [address] [place] [address] 05/26/2025 King Davis Chronic kidney disea se (CKD) stage G3a/A1, moderately decreased glomerular filtration rate (GFR) between 45-59 mL/min/1.73 square meter and albuminuria creatinine ratio less than 30 mg/g N18.31 [facility] [address] [place] [address] 06/23/2025 King Davis [facility] [address] [place] [address] 12/18/2024 Duyen Rogers [facility] [address] [place] [address] 01/10/2025 King Davis [facility] [address] [place] [address] 01/12/2025 Duyen Rogers [facility] [address] [place] [address] 01/12/2025 King Davis [facility] [address] [place] [address] 02/03/2025 King Davis Heart transplant recipient Z94.1 ; Weakness R53.1 and Bronchitis J40 [facility] [address] [place] [address] 02/11/2025 Duyen Rogers [facility] [address] [place] [address] 09/17/2024 Duyen Rogers [facility] [address] [place] [address] 09/27/2024 Duyen Rogers [facility] [address] [place] [address] 09/28/2024 Duyen Rogers [facility] [address] [place] [address] 10/06/2024 Duyen Rogers [facility] [address] [place] [address] 12/14/2024 King [facility] [address] [place] [address] 12/15/2024 Duyen Rogers Iron deficiency anem ia D50.9 [facility] [address] [place] [address] 09/07/2024 Duyen Rogers Abnormal laboratory test R89.9 and Nausea R11.0 [facility] [address] [place] [address] 09/08/2024 Duyen Rogers [facility] [address] [place] [address] 09/10/2024 Duyen Rogers [facility] [address] [place] [address] 09/14/2024 Duyen Rogers [facility] [address] [place] [address] 09/15/2024 Duyen Rogers [facility] [address] [place] [address] 09/17/2024 Duyen Rogers Unintentional weight loss R63.4 [facility] [address] [place] [address] 08/05/2024 King jaylen [facility] [address] [place] [address] 08/05/2024 Duyen Rogers [facility] [address] [place] [address] 08/07/2024 Duyen Rogers Elevated lipase R74. 8 and UTI (urinary tract infection) N39.0 [facility] [address] [place] [address] 08/14/2024 Duyen Rogers Vertigo R42 [facility] [address] [place] [address] 08/31/2024 Duyen Rogers [facility] [address] [place] [address] 09/04/2024 Duyen Rogers [facility] [address] [place] [address] 07/13/2024 Duyen Rogers [facility] [address] [place] [address] 07/13/2024 Duyen Rogers [facility] [address] [place] [address] 07/22/2024 Duyen Rogers Hypomagnesemia E83.4 2 [facility] [address] [place] [address] 07/24/2024 Duyen Rogers Chronic kidney disea se, stage 4 (severe) N18.4 [facility] [address] [place] [address] 07/27/2024 Duyen Rogers Diarrhea R19.7 [facility] [address] [place] [address] 08/03/2024 Duyen Rogers [facility] [address] [place] [address] 07/05/2024 King Hoy Elevated WBCs D72.82 9 and Hypomagnesemia E83.42 [facility] [address] [place] [address] 07/08/2024 Duyen Rogers [facility] [address] [place] [address] 07/08/2024 Duyen Rogers [address] [address] 07/09/2024 Duyen Rogers [address] [address] 09/04/2024 Duyen Rogers Unintentional weight loss R63.4 ; Hypothyroidism, unspecified E03.9 ; Anxiety disorder, unspecified F41.9 and Depression F32.[address] [address] 10/06/2024 Duyen Rogers Fatigue R53.[address] [address] 09/14/2024 Duyen Rogers Iron deficiency anem ia D50.9 ; Unintentional weight loss R63.4 and Fatigue R53.[address] [address] 03/05/2025 King Davis Chronic kidney disea se (CKD) stage G3a/A1, moderately decreased glomerular filtration rate (GFR) between 45-59 mL/min/1.73 square meter and albuminuria creatinine ratio less than 30 mg/g N18.[address] [address] 07/05/2025 King Davis Chronic kidney disea se, stage 4 (severe) N18.4 ; Chronic kidney disease due to diabetes mellitus E11.22 ; Central retinal vein occlusion, left eye, with macular edema H34.8120 ; Weakness R53.1 ; Hypertension I10 and Anxiety disorder, unspecified F41.[address] [address] 07/08/2024 Duyen Rogers Unintentional weight loss R63.4 ; Diarrhea R19.7 and Vertigo R42 [address] [address] 08/05/2024 Duyen Rogers Depression F32.9 ; Elevated lipase R74.8 ; UTI (urinary tract infection) N39.0 ; Vertigo R42 ; Insomnia G47.00 and Anxiety disorder, unspecified F41.9 [facility] [address] [place] [address] 02/03/2025 King Davis Weakness R53.1 ; Pneumonia J18.9 and Hypertension I10 Assessments Encounter Date Diagnosis (ICD Code) Assessment Notes Treatment Notes Treatment Clinical Notes Section Notes 03/05/2025 Chronic kidney disease (CKD) stage G3a/A1, moderately decreased glomerular filtration rate (GFR) between 45-59 mL/min/1.73 square meter and albuminuria creatinine ratio less than 30 mg/g (ICD-10 - N18.31) 07/05/2025 Chronic kidney disease, stage 4 (severe) (ICD-10 - N18.4) checking labs - was admitted for same 07/05/2025 Chronic kidney disease due to diabetes mellitus (ICD-10 - E11.22) checiing on labs 10/06/2024 Fatigue (ICD-10 - R53.83) fu with cardiology and GI 09/14/2024 Iron deficiency anemia (ICD-10 - D50.9) repeat cbc, iron in 3m 08/05/2024 Depression (ICD-10 - F32.9) trial of trazodone 08/05/2024 Elevated lipase (ICD-10 - R74.8) repeat lab CT? GI referral for fu? 09/04/2024 Unintentional weight loss (ICD-10 - R63.4) referral GI continue to lose loss of appetite, nausea when tries eat small frequent meals, increase protein, protein shakes, eat what sounds good 07/08/2024 Unintentional weight loss (ICD-10 - R63.4) increase protein, shakes small frequent meals fu 1-2 weeks for wt check 07/08/2024 Diarrhea (ICD-10 - R19.7) 07/05/2024 Elevated WBCs (ICD-10 - D72.829) 07/05/2024 Hypomagnesemia (ICD-10 - E83.42) 07/22/2024 Hypomagnesemia (ICD-10 - E83.42) 07/24/2024 Chronic kidney disease, stage 4 (severe) (ICD-10 - N18.4) 07/27/2024 Diarrhea (ICD-10 - R19.7) 08/07/2024 Elevated lipase (ICD-10 - R74.8) 08/07/2024 UTI (urinary tract infection) (ICD-10 - N39.0) 08/14/2024 Vertigo (ICD-10 - R42) 09/07/2024 Abnormal laboratory test (ICD-10 - R89.9) 09/07/2024 Nausea (ICD-10 - R11.0) 09/17/2024 Unintentional weight loss (ICD-10 - R63.4) 12/15/2024 Iron deficiency anemia (ICD-10 - D50.9) 02/03/2025 Heart transplant recipient (ICD-10 - Z94.1) 02/03/2025 Weakness (ICD-10 - R53.1) 04/30/2025 Diarrhea (ICD-10 - R19.7) 05/25/2025 Hypomagnesemia (ICD-10 - E83.42) 05/26/2025 Chronic kidney disease (CKD) stage G3a/A1, moderately decreased glomerular filtration rate (GFR) between 45-59 mL/min/1.73 square meter and albuminuria creatinine ratio less than 30 mg/g (ICD-10 - N18.31) 06/28/2025 Hypothyroidism, unspecified (ICD-10 - E03.9) 02/03/2025 Weakness (ICD-10 - R53.1) Home healt 02/03/2025 Pneumonia (ICD-10 - J18.9) 02/03/2025 Hypertension (ICD-10 - I10) 02/03/2025 Bronchitis (ICD-10 - J40) 07/08/2024 Vertigo (ICD-10 - R42) checking labs 09/04/2024 Hypothyroidism, unspecified (ICD-10 - E03.9) 08/05/2024 UTI (urinary tract infection) (ICD-10 - N39.0) finish Cipro repeat UA CS 7-10 days after completion abx 09/14/2024 Unintentional weight loss (ICD-10 - R63.4) GI referral [facility]? increase protein, small frequent meals 07/05/2025 Central retinal vein occlusion, left eye, with macular edema (ICD-10 - H34.8120) seeing eye dr 07/05/2025 Weakness (ICD-10 - R53.1) 09/14/2024 Fatigue (ICD-10 - R53.83) 08/05/2024 Vertigo (ICD-10 - R42) increase fluids, electrolytes consider neuro consult routine meclizine instead of prn? see if helps 09/04/2024 Anxiety disorder, unspecified (ICD-10 - F41.9) encouraged counseling 09/04/2024 Depression (ICD-10 - F32.9) restart lexapro has helped most in past 08/05/2024 Insomnia (ICD-10 - G47.00) trial of trazodone 07/05/2025 Hypertension (ICD-10 - I10) 07/05/2025 Anxiety disorder, unspecified (ICD-10 - F41.9) 08/05/2024 Anxiety disorder, unspecified (ICD-10 - F41.9) prn clonazepam? helped in past 09/14/2024 Other handicap placard rx send iron supplement, repeat labs lab B12 GI referral, imaging? 10/06/2024 Other check on nephrology referral , has seen? Plan Of Treatment Pending Test Test Name Order Date CMP (COMPLETE METABOLIC PANEL) 4 CMP (COMPLETE METABOLIC PANEL) 4 CMP (COMPLETE METABOLIC PANEL) 3 CMP (COMPLETE METABOLIC PANEL) 4 UA (URINALYSIS, COMPLETE) 06/24/2024 UA (URINALYSIS, COMPLETE) 08/07/2024 CULTURE, STOOL 07/08/2024 LIPID PANEL (CHOL/TRIG/HDL/LDL) 09/02/20 23 CBC WITH DIFF 07/08/2024 CBC WITH DIFF 09/04/2024 UA (URINALYSIS, MICRO ONLY) 08/07/2024 URINE CULTURE 06/24/2024 MAGNESIUM 07/22/2024 MAGNESIUM 07/08/2024 C DIFF TOX PCR STOOL 07/08/2024 INFLUENZA A and B, NASAL/NASOPHARYNGEAL (PCR) 03/05/2023 Magnesium 05/25/2025 CBC W/AUTO DIFF 07/05/2024 High Sensitivity Troponin 07/05/2025 SARS COVID-2 NASAL - PCR 03/05/2023 SARS COVID-2 NASAL - PCR 11/21/2023 BNP 07/05/2025 CULTURE URINE 08/07/2024 IRON 09/07/2024 MAGNESIUM 07/05/2024 MAGNESIUM 07/05/2025 MAGNESIUM 03/05/2025 PHOSPHORUS 03/05/2025 PROF 14(COMP METB) 03/05/2025 SED RATE WESTERGREN 07/05/2025 URINE MICROSCOPIC ONLY 06/24/2024 VITAMIN B12 10/06/2024 VITAMIN B12 09/14/2024 THYROID PANEL (T4/TSH/FREE T3) 4 THYROID PANEL (T4/TSH/FREE T3) 5 Insurance Providers Payer Name Payer Address Payer Phone Subscriber Number Group Number Insured Name Patient Relationship to Insured Coverage Start Date Coverage End Date [facility] [employer]IC[employer] [address] [place] [address] [id number] [facility] 2 Sylvia Herrera Self - patient is the insured 3 MEDICAID [place] 2ND INS [address] [place], [place] [id number] Sylvia Herrera Self - patient is the [...] heart transplant 01/18/2006 Hospitalization History Reason Date(Month/Year) Dehydration 06/25 ABD pain/dehydration 06/2023 Covid/ Chest discomfort 04/2023
--- OUTSIDE RECORDS SUMMARY | 2025-07-05 11:38 | XMS_ITS | Encounter Summary ---
Author Organization [facility] Address [address] [place] [address] Care Team Providers Care Hrbp Name Role Phone Fausto Garcia DO Primary Care Provider Vijay Davis MD Primary Care Provider [phone] Sang Guerra MD Unavailable [phone] Source Comments In the event this information is protected by the Federal Confidentiality of Alcohol and Drug AbusePatient Records regulations: The Federal rules restrict any use of the information to criminally investigate or prosecute any alcohol or drug abuse patient.[facility] Encounter Details Date Type Department Care Team (Late st Contact Info) Description 01/01/2018 Patient Msg Cardiology [address] [place] [address] Sandrita Santana, ANIMAL CYTOLOGIST.DOWEL PIN WORKER [address] [place] [address] Labs and Phone Number Social [...] documented as of this encounter Care Teams Hrbp Relationship Specialty Start Date End Date Fausto Garcia DO PCP - General Family Medicine 11/19/16 05/12/19 Vijay Davis MD PCP - General Family Medicine 05/13/19 Sang Guerra MD [address] [place] [id number] Referring Internal Medicine 01/18/25 documented as of this encounter
--- OUTSIDE RECORDS SUMMARY | 2025-07-05 11:38 | XMS_ITS | Clinical Summary ---
Author Organization [facility] [facility] Address [id number] [address] [place] [address] Care Team Providers Care Granite Block Paver Name Role Phone Fausto Garcia DO Primary [...] at bedtime as needed 7 Active pancrelipase, Liy-Cjun-Dqaw, (CREON) 24,000-76,000 -120,000 unit capsule,delayed release(DR/EC) Take [...] file Insurance MEDICARE MEDICAID [place] Care Teams Granite Block Paver Relationship Specialty Start Date End Date Fausto Garcia DO PCP - General 05/10/17
--- OUTSIDE RECORDS SUMMARY | 2025-07-05 11:38 | XMS_ITS ---
Author Organization [facility] Address [address] [place] [address] Care Team Providers Care Make Up Artist Name Role Phone Vijay Davis MD Primary Care Provider [phone] Sang Guerra MD Unavailable Transplant Episode Heart Recipient [facility] ([place], [place]) [facility] Organ Received: Heart Transplanted on 01/18/2006 Marked as Active Follow-up on 01/18/2006 Heart CoordinatorLoida Mathias APRN.CNP Fax: N/A Email: N/A [place] Organ Diagnosis Organ Primary Contributory Heart Dilated [...] Role Phone Fax Email Loida Mathias APRN.ODETTE Master Control Supervisor N/A N/A Cody Grullon MD Surgeon [phone] N/A Events Post-Transplant Pre-Transplant Admitted: 10/11/2005 Referred: 10/10/2005 Transplanted: 01/18/2006 Evaluation began: 5 Discharged: 02/05/2006 Center waitlisted: 5
--- OUTSIDE RECORDS SUMMARY | 2025-07-05 11:38 | XMS_ITS | Encounter Summary ---
Author Organization [facility] Address [address] [place] [address] Care Team Providers Care Turn Sewer Name Role Phone Fausto Garcia DO Primary Care Provider Vijay Davis MD Primary Care Provider [phone] Sang Guerra MD Unavailable [phone] Source Comments In the event this information is protected by the Federal Confidentiality of Alcohol and Drug AbusePatient Records regulations: The Federal rules restrict any use of the information to criminally investigate or prosecute any alcohol or drug abuse patient.[facility] Encounter Details Date Type Department Care Team (Late st Contact Info) Description 03/19/2017 Get Medical Advice Infectious Disease [address] [place] [address] Noa Waterman MD [address] [place] [address] change in appointment time Social [...] EDT Dr. Waterman, Please see the below Telinett message and contact patient to advise within 72 hours. Mohit Baca ?? No I do not have diarrhea any more I was [facility] [place] for a week I have everything they [...] documented as of this encounter Care Teams Turn Sewer Relationship Specialty Start Date End Date Fausto Garcia DO PCP - General Family Medicine 11/19/16 05/12/19 Vijay Davis MD PCP - General Family Medicine 05/13/19 Sang Guerra MD [address] [place] [address] Referring Internal Medicine 01/18/25 documented as of this encounter
--- OUTSIDE RECORDS SUMMARY | 2025-07-05 11:38 | XMS_ITS | Encounter Summary ---
Author Organization [facility] Address [address] [place] [address] Care Team Providers Care Bumper And Painter Name Role Phone Fausto Garcia DO Primary Care Provider Vijay Davis MD Primary Care Provider [phone] Sang Guerra MD Unavailable [phone] Source Comments In the event this information is protected by the Federal Confidentiality of Alcohol and Drug AbusePatient Records regulations: The Federal rules restrict any use of the information to criminally investigate or prosecute any alcohol or drug abuse patient.[facility] Encounter Details Date Type Department Care Team (Late st Contact Info) Description 03/15/2017 Get Medical Advice Infectious Disease [address] [place] [address] Noa Waterman MD [address] [place] [address] RE: Non-Urgent Medical Question Social [...] documented as of this encounter Care Teams Bumper And Painter Relationship Specialty Start Date End Date Fausto Garcia DO PCP - General Family Medicine 11/19/16 05/12/19 Vijay Davis MD PCP - General Family Medicine 05/13/19 Sang Guerra MD [address] [facility] [address] Referring Internal Medicine 01/18/25 documented as of this encounter
--- OUTSIDE RECORDS SUMMARY | 2025-07-05 11:39 | XMS_ITS | Clinical Summary ---
Author Organization [facility] Address [address] [place] [address] Care Team Providers Care Welding Machine Operator/Tender Name Role Phone Vijay Davis MD Primary Care Provider [phone] Allergies Active Allergy Reactions Criticality Noted Date Comments Promethazine 08/12/2022 Promethazine Hcl Hallucinations,Other High 5 hallucinations hallucinations hallucinations hallucinations Medications aspirin 81 mg EC tablet Take 1 tablet every day by oral route. Active zglnfc-wifwxcvm-ynw lase (Creon) 24,000-76,000 -120,000 unit capsule Take [...] meal. 180 tablet 3 11/12/20 23 Active Additional Information Patient taking differently: 12.5 mgoral 2 times daily with meals, Reported on 06/21/2025 escitalopram (Lexapro) 10 mg tablet Take 10 [...] by mouth with breakfast. 10/06/20 24 Active sodium bicarbonate 650 mg tablet Take 1,300 mg by mouth three times daily. 06/18/20 25 Active clonazePAM (KlonoPIN) 0.5 mg tablet Take 0.5 mg by mouth in the morning and at bedtime. 05/30/20 25 Active alendronate (Fosamax) 70 mg tablet Take 70 mg by mouth every other day. 12/23/19 17 Active carvedilol (Coreg) 6.25 mg tabletIndications:P rimary hypertension Take 1 tablet (6.25 mg) by mouth with breakfast and with evening meal. 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 Bronchitis 02/05/2025 Acute gastric ulcer without hemorrhage [...] 12/21/2016 Leukocytosis 12/21/2016 Generalized anxiety disorder 07/05/2015 Venous retinal branch occlusion 06/16/2015 DREW (acute kidney injury) 12/03/2014 Prophylactic immunotherapy [...] Encounters Date Type Department Care Team Description 06/23/[address] [place] [address] Kristin Richardson MA 06/21/2025 11:00 AM EDT Office Visit [address] [place] [address] Jameel Daly MD Status post heart transplantation ([facility]) (Primary Dx); Pulmonary hypertension (CMS/HCC); Primary hypertension; Stage 5 chronic kidney disease (CMS/HCC); Chronic diarrhea 04/16/2025 Orders Only [facility] [address] [place] [address] Demetria Quiroz MA Heart replaced by transplant ([facility]) from Last 3 Months Immunizations Immunization Administration [...] drink = 0.6 oz pur e alcohol) [facility] Utilities Answer Date Recorded In the past 12 months has th e Plex, Tempolib, oil, or water [employer]St[employer] threatened to shut off services in your [...] any time in the past 12 m [facility], were you homeless or living in a correction (including now)? No 01/08/2025 Hunger Vital Sign [...] Heterosexual or Straight 08/2025 2:36 PM EDT Last Filed Vital Signs Vital Sign Reading Time Taken Comments Blood Pressure 160/86 06/21/2025 11:21 AM EDT Pulse 71 06/21/2025 11:21 AM EDT Temperature 36 C (96.8 F) 01/10/2025 7:34 PM EST Respiratory Rate 11 01/10/2025 7:34 PM EST Oxygen Saturation 100% 06/21/2025 11:21 AM EDT Inhaled Oxygen Concentration - - Weight 45.4 kg (100 lb) 06/21/2025 11:21 AM EDT Height 157.5 cm (5' 2 ) 06/21/2025 11:21 AM EDT Body Mass Index 18.29 06/21/2025 11:21 AM EDT Plan of Treatment Upcoming Encounters Date Type Department Care Team (Late st Contact Info) Description 09/17/2025 11:00 AM EDT Office Visit [facility] at [facility] [address] [place] [address] Jameel Daly MD [address] [facility] [place] [address] Health Maintenance Due Date Last Done Comments Diabetes: Hemoglobin A1C 1945 Medicare Annual Wellness (AWV) 1945 Diabetes: Retinopathy Screening 1954 Depression Screening 1956 Diabetes: Urine Protein Screening 1963 Zoster Vaccines (1 of 2) 1964 Adult Tetanus 1966 COVID-19 Vaccine ( season) 2024 06/05/2022, 06/05/2022, 08/29/2021, Additional history exists Influenza Vaccine (#1) 2025 , 07/14/2022, 07/05/2021, Additional history exists Fall Risk [...] 9:36 PM 01/11/2025 1:23 AM Care Teams Welding Machine Operator/Tender Relationship Specialty Start Date End Date Vijay Davis MD [address] [facility] [address] [address] PCP - General 08/12/22
--- OUTSIDE RECORDS SUMMARY | 2025-07-05 11:39 | XMS_ITS | Clinical Summary ---
Author Organization [facility] Address [address] [place] [address] Care Team Providers Care Manager Fraud Name Role Phone Vijay Davis MD Primary Care Provider [phone] Sang Guerra MD Unavailable [phone] Allergies Active Allergy Reactions Criticality Noted [...] mouth three times a day. 90 tablet Active Active Problems Problem Noted Date Diagnosed [...] left atrial muscle). Transplant number: #[id number] Primary veterans rehabilitation counselor: Dr. Vianca Valiente CT Surgeon: Dr. 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 Last address used for calculation [address] 01/20/2025 Comments No Sex and Gender Information [...] 03/04/2020 03/04/2019, 11/01, 11/20/2016, Additional history exists Advance Directive Discussion 12/02/2024 Medicare Advantage Annual We llness Visit 12/02/2024 Influenza Vaccine (#1) 2025 , 07/14/2022, 07/05/2021, Additional history exists Dilated Retinal [...] Pressure 154/78(2024 1:06 PM EST) Sho Ni, DUSTY.TIMBER GIRDLER Procedures Procedure Name Priority Date/Time Associated Diagnosis [...] right eye and macular edema, unspecified whether terminal gauger insulin use (HCC) Posterior vitreous detachment of both eyes LIPID PANEL, FASTING Routine 03/04/2019 7:46 AM EDT Heart replaced by transplant ([facility]) HEMOGLOBIN A1C Routine 12/15/2014 9:47 AM EST Heart replaced by transplant ([facility]) Encounter for long-term (current) use of other medications BMD BONE DENSITY Routine 03/28/2007 11:2 0 AM EDT steroid osteoporosis Farrowing Worker Steroids from Last 3 Months or Most Recently Relevant to Health Maintenance Results * (ABNORMAL) RENAL FUNCTION PANEL (01/25/2025 3:08 AM EST) Albumin 2.8(L) 3.9 - 4.9 g/dL 01/25/2025 4:30 AM EST [facility] Calcium, Total 7.6(L) 8.5 - 10.2 mg/dL 01/25/2025 4:30 AM EST [facility] Phosphorus 2.9 2.7 - 4.8 mg/dL 01/25/2025 4:30 AM EST [facility] Glucose 149(H) 74 - 99 mg/dL 01/25/2025 4:30 AM EST [facility] Comment: The [place] Diabetes Association (ADA) provides guidance for cutoff [...] Standards of Medical Care in Diabetes 2016, [place] Diabetes Association. Diabetes Care. 2016.39(Suppl 1). BUN 53(H) 7 - 21 mg/dL 01/25/2025 4:30 AM [facility] Creatinine 2.37(H) 0.58 - 0.96 mg/dL 01/25/2025 4:30 AM [facility] Sodium 133(L) 136 - 144 mmol/L 01/25/2025 4:30 AM [facility] Potassium 4.8 3.7 - 5.1 mmol/L 01/25/2025 4:30 AM [facility] Chloride 98 98 - 107 mmol/L 01/25/2025 4:30 AM [facility] CO2 22 22 - 30 mmol/L 01/25/2025 4:30 AM [facility] Anion Gap 13 8 - 15 mmol/L 01/25/2025 4:30 AM [facility] Estimated Glomerular Filtration Rate 20(L) >=60 mL/min/1. 73m 01/25/2025 4:30 AM [facility] Comment:Estimated Glomerular Filtration Rate (eGFR) [...] us Garrett Weaver MD LABORATORY Final Result Performing Organization Address City/[facility] Co de Phone Number [facility] [address] [address], * (ABNORMAL) COMPLETE BLOOD COUNT (01/25/2025 3:08 AM EST) WBC 7.98 3.70 - 11.00 k/uL 01/25/2025 3:52 AM EST [facility] RBC 2.85(L) 3.90 - 5.20 m/uL 01/25/2025 3:52 AM EST [facility] Hemoglobin 8.3(L) 11.5 - 15.5 g/dL 01/25/2025 3:52 AM EST [facility] Hematocrit 25.5(L) 36.0 - 46.0 % 01/25/2025 3:52 AM EST [facility] MCV 89.5 80.0 - 100.0 fL 01/25/2025 3:52 AM EST [facility] MCH 29.1 26.0 - 34.0 pg 01/25/2025 3:52 AM EST [facility] MCHC 32.5 30.5 - 36.0 g/dL 01/25/2025 3:52 AM EST [facility] RDW-CV 13.7 11.5 - 15.0 % 01/25/2025 3:52 AM EST [facility] Platelet Count 265 150 - 400 k/uL 01/25/2025 3:52 AM EST [facility] MPV 10.0 9.0 - 12.7 fL 01/25/2025 3:52 AM EST [facility] Absolute nRBC <0.01 <0.01 k/uL 01/25/2025 3:52 AM EST [facility] Blood BLOOD SPECIMEN / Unknown Venipuncture / Unknown 01/25/2025 3:08 AM EST 01/25/2025 3:35 AM EST us Garrett Weaver MD LABORATORY Final Result [facility] [address] [facility] [address] [place] [address], [place] * FUNDUS PHOTOS OU (BOTH EYES) (01/20/2025 3:57 PM EST) Anatomical Region Laterality Modality Other Narrative 01/21/2025 8:00 AM EST Date of Procedure 01/20/2025. Germination Testing Manager Information Manager Risk Management: JOHNNY. Start time: 3:57 PM. Stop time: 3:57 PM. Disc Right Eye Normal. Left Eye Cupping, Pallor. Macula Right Eye Microaneurysms, Hemorrhage. Periphery Right Eye Hemorrhage. Left Eye Hemorrhage. us Paulina Taylor PA-C OPHTHALMOLOGY Final Resu lt * LIPID PANEL BASIC (03/04/2019 7:46 AM EDT) Cholesterol, Total 124 <200 mg/dL 03/04/2019 12:26 PM EDT [facility] Comment: <200 mg/dL, Desirable 200-239 mg/dL, Borderline high >239 mg/dL, High Triglyceride 108 <150 mg/dL 03/04/2019 12:26 PM EDT [facility] Comment: <150 mg/dL, Normal 150-199 mg/dL, Borderline high 200-499 mg/dL, High >499 mg/dL, Very high HDL Cholesterol 53 >39 mg/dL 9 12:26 PM EDT [facility] Comment: 40-59 mg/dL, Acceptable >59 mg/dL, High: Negative risk factor for coronary heart disease <40 mg/dL, Low: Positive risk factor for coronary heart disease LDL Cholesterol, Calculated 49 <100 mg/dL 03/04/2019 12:26 PM EDT [facility] Comment: <100 mg/dL, Optimal 100-129 mg/dL, Near optimal/above optimal 130-159 mg/dL, Borderline high 160-189 mg/dL, High >189 mg/dL, Very high Secondary prevention optimal LDL Cholesterol levels are recommended to be < 70 mg/dL Non HDL Cholesterol 71 <130 mg/dL 03/04/2019 12:26 PM EDT [facility] Comment: <130 mg/dL, Optimal 130-159 mg/dL, Near optimal/above optimal 160-189 mg/dL, Borderline high 190-219 mg/dL, High >219 mg/dL, Very high Secondary prevention optimal non HDL Cholesterol levels are recommended to be < 100 mg/dL Fasting Time 12 hrs 03/04/2019 7:48 AM EDT [facility] VLDL Cholesterol 22 <30 mg/dL 03/04/20 19 12:26 PM EDT [facility] TC:HDL Ratio 2.34 <5.10 03/04/2019 12:26 PM EDT [facility] LDL:HDL Ratio 0.92 <2.54 03/04/2019 12:26 PM EDT [facility] Comment: Reference: 1. National Cholesterol Education Program ATP III Guideline At-A-Glance Quick Desk Reference: National Heart, Lung, and Blood [place]. National Institutes of Health. 2001: NIH Publication No. 01-3305. 2. An International Atherosclerosis Society position paper: global recommendations for the management of dyslipidemia: executive summary, Atherosclerosis. 2014: 232(2):410-413. Blood specimen (specimen) BLOOD SPECIMEN / Unknown 03/04/2019 7:46 AM EDT 03/04/2019 7:48 AM EDT Hortensia Merino APRN.[facility] Yina ramos Result [facility] [address] [place] [address] [facility] [address] [place] [address] * (ABNORMAL) HGB A1C (12/15/2014 9:47 AM EST) Hemoglobin A1C 6.4(H) 4.0 - 6.0 % [facility] Comment: [place] Diabetes Association guidelines indicate that patients with HgbA1c in the range 5.7-6.4% are at increased risk for development of diabetes, and intervention by lifestyle modification may be beneficial. HgbA1c greater or equal to 6.5% is considered diagnostic of diabetes. Estimated Average Glucose 137 mg/dL [facility] Comment: eAG: (Estimated average glucose) is a calculated value from HgbA1c and is construction sales representative of the average blood glucose level in the last 2-3 month period. Blood specimen (specimen) BLOOD SPECIMEN / Unknown 12/15/2014 9:47 AM EST 12/15/2014 9:49 AM EST us Sandrita Santana SOFTWARE DEVELOPMENT ENGINEER.TIMBER GIRDLER LABORATORY Final Re sult [facility] [address] [place] [address] * BMD BONE DENSITY SCREENING (03/28/2007 11:20 AM EDT) House Worker General Report Text Exam Performed: DEXA SPINE, HIP BONE DENSITY REPORT: Dual energy x-ray absorptiometry. DXA MODEL: [employer], Truckily. DXA SITE: [facility], [facility]. SITE SCANNED: Lumbar spine, left hip, [...] Two years. COPY: Dr. Valiente, F25. Principal School Bus Driver: BALWINDER FERNANDEZ RADIOLOGY Anatomical Region Laterality Modality Other 03/28/2007 11:2 0 AM EDT Balwinder Fernandez MD BONE DENSITY Final Result from Last 3 Months or Most Recently Relevant to Health Maintenance Additional Health Concerns Infection Onset Date Last Indicated Norovirus 01/20/2025 01/20/2025 Insurance [facility] DUAL COMPLETE HMO POS SNP Advance Directives Documents on File Type Date Recorded Patient Reservations Specialist Expl anation Advance Directive(s) 01/02/2012 Advance Directive(s) 01/17/2007 Care Teams Manager Fraud Relationship Specialty Start Date End Date Vijay Davis MD PCP - General Family Medicine 05/13/19 Sang Guerra MD [address] [place] [address] Referring Internal Medicine 01/18/25
[2025-07-05 12:31] LABS: Magnesium 1.4 mg/dL (1.8-2.4)
[2025-07-05 13:11] LABS: NT Pro B Type Natriuretic Pept 4041.0 pg/mL (<=1800.0)
== END 2025-07-05 11:29 | disposition home or self-care (01) ==
LOC: LAB 11:33
PROVIDERS: PCP Family Medicine; Visit Provider Family Medicine
DX: N18.4 Chronic kidney disease, stage 4 (severe) (principal)
CPT/HCPCS: 36415; 83735; 83880; 84484; 85652

== ENCOUNTER 2025-07-16 09:10 | Outpatient (OUT) | payer MEDICARE, MEDICAID, SELFPAY ==
--- NOTE | 2025-07-16 09:15 | CA_ITS ---
Patient Name: SYLVIA HANNA MR#: [id number] : 1945 Exam Date: 07/16/2025 Ordering Doctor: DR ANISHA DALY M.D. ECHOCARDIOGRAM REPORT PROCEDURE: CA ECHO DOPPLER COMPLETE INDICATIONS: S/p heart transplant (2005), pulmonary hypertension COMPARISON: None. DESCRIPTION: COMPLETE ECHOCARDIOGRAM Real-time transthoracic echocardiography with 2D, M-mode, spectral and color flow Doppler performed. QUALITY: Technical quality was good. LEFT VENTRICLE: Normal chamber size. Moderate concentric left ventricular hypertrophy. Normal systolic function. Calculated left ventricular ejection fraction is 68%. LV EF: Normal left ventricular ejection fraction, (>55%). DIASTOLIC: Not adequately assessed due to heart rhythm [PVCs]. ATRIAL SEPTUM: Visually appears intact. LEFT ATRIUM: Severe dilatation. RIGHT ATRIUM: Normal chamber size. RIGHT VENTRICLE: Normal chamber size. TRICUSPID VALVE: Normal mobility and thickness. No stenosis with trivial regurgitation. Unable to assess right-sided pressures due to lack of measurable tricuspid regurgitation. MITRAL VALVE: Normal mobility and thickness. No evidence of mitral valve stenosis. There is no mitral annular calcification. Mild mitral regurgitation. AORTIC VALVE: Normal trileaflet appearance. No visible sclerosis. Normal leaflet mobility. No evidence of aortic valve stenosis. Mild aortic regurgitation. AORTIC ROOT: Normal diameter and appearance, measuring 3.1 cm. PULMONIC VALVE: Normal thickness and mobility. No stenosis. Mild regurgitation. PERICARDIUM: No evidence of pericardial effusion. IVC: Collapses with inspiration and. IVC is normal in size. PLEURA: CONCLUSION: 1. Moderate concentric left ventricular hypertrophy with normal systolic function. Calculated LVEF is 68%. 2. Normal right ventricular size and systolic function. 3. Severe left atrial dilatation. 4. Mild mitral, aortic and pulmonic regurgitation. 5. Unable to assess right-sided pressures due to lack of measurable tricuspid regurgitation. Adult Echocardiography Procedure Report Left Ventricle LVEDD (3.7 - 5.6 cm): 3.00 cm LVESD (2.2 - 4.0 cm): 2.35 cm LVIVS thickness (0.6 - 1.2 cm): 1.50 cm LVPW thickness (0.5 - 1.0 cm): 1.55 cm LVOT Diameter 1.96 cm Left Ventricular Ejection Fraction: 68.25 % Left Atrium LA Volume Index (2D A2C): 63.22 ml/m2 Left Atrium Systolic Dimension: 3.50 cm Mitral Valve Right Ventricle Aorta AO Root Diam: 3.11 cm Aortic Valve Tricuspid Valve Pulmonic Valve Peak Velocity: 0.88 m/s Peak Gradient: 3.48 mm[Hg], 2.77 mm[Hg] Right Atrium Right Atrium Systolic Pressure: 51.98 ml, 51.98 ml Dictated by: Anisha Daly M.D. on 07/16/2025 at 22:05 Approved by: Anisha Daly M.D. on 07/16/2025 at 22:14
--- OUTSIDE RECORDS SUMMARY | 2025-07-16 09:23 | XMS_ITS | CCD ---
Author Organization [facility] Care Team Providers Care Roll Press Operator Name Role Phone Tao Rooney MD Primary Care Provider [phone] SCOT ROGERS Primary Care Physician Tao Rooney MD Primary Care Provider [phone] Tao Rooney MD Primary Care Provider [phone] TAO HEBERT Primary Care Unavailable [...] LANCASTER Attending Unavailable SCOT ROGERS Consulting Unavailable DR TAO HEBERT Primary Care Unavailable SCOT ROGERS Admitting Unavailable [...] TORIBIO ., DR BURGER Primary Care Unavailable KRISTIN DR HAI Chambers Consulting Unavailable SUE, SCOT Admitting Unavailable SUE, SCOT Consulting Unavailable HOY ., DR BURGER Primary Care Unavailable HOY ., DR BURGER Admitting Unavailable HOY ., DR BURGER Consulting Unavailable HOY ., DR BURGER Attending Unavailable CROWDER, DR JAZLYN Marceilno Consulting Unavailable SUE, SCOT Consulting Unavailable SUE, [...] Tao Rooney MD Primary Care Provider Charlie MCDANIELS [facility] Unavailable MARLYN TAYLOR Attending Unavailable HOY, TAO [...] Admitting Unavailable HORANI, RESHMA N Referring Unavailable MELONIE KAUFFMANU Attending Unavailable Tao Rooney MD Primary Care Provider [phone] ANISHA DALY Attending Unavailable FABRIZIO, ANISHA Attending Unavailable ANISHA DALY Attending Unavailable ANISHA DALY Attending Unavailable CIERRA, JERAD T Referring Unavailable CIERRA, JERAD T Referring Unavailable CIERRA JERAD T Attending Unavailable HORANI, RESHMA Admitting Unavailable HOY, TAO Referring Unavailable AMSDELL, TRAM Referring Unavailable ZHUKIVSKA, CARLOS M Referring Unavailabl e HORANI, RESHMA Referring Unavailable ZHUKIVSKA, CARLOS M Referring Unavailabl e ZHUKIVSKA, CARLOS M Referring Unavailabl e NORMAN, SHOLA Referring Unavailable HOY, TAO M Primary Care Unavailable HOY, TAO M Primary Care Unavailable HOY, TAO M Primary Care Unavailable IACOBRAMINDERIAN Admitting Unavailable RAMIN HOOVERFAN Attending Unavailable ANGELESDABLAYNE, LEXUS K Consulting Unavailable NORMAN, SHOLA Consulting Unavailable NAZEMI I, APOLINAR Consulting Unavailable BLANCA BARNHART Admitting Unavailable BLANCA BARNHART Attending Unavailable HOY, TAO M Primary Care Unavailable BLANCA BARNHART Referring Unavailable HOY, TAO M Primary Care Unavailable NORMAN, SHOLA Referring Unavailable HOY, TAO M Primary Care Unavailable Josse Burch MD Attending Unavailable Tao Rooney MD Primary Care Unavailnyla Rooney MD, Tao Caldwell Primary Care UnavailAnisha Durán MD Referring Unav ailable Adria MANDUJANO, Josiah Rueda Attending U libertad MANDUJANO, Josiah Rueda Attending U Tao Reno MD Primary Care Unavaila ble Allergies Allergy Classification Reported Allergen(s) Allergy Type Date of Onset Reaction(s) Facility (20 sources) Acetaminophen / oxyCODONE; Translations: [OXYCODONE-ACETAM INOPHEN] Drug Allergy 05-18-20 14 GI Upset, Nausea And Vomiting [facility] Work Phone: (20 sources) Promethazine; Translations: [PROMETHAZINE HCL] Drug Allergy 10-11-20 05 Other: See Comments, Other (See Comments) [facility] (3 sources) Levamisole; Translations: [Phenergan] Drug Allergy 04-07-20 13 [facility] Repository (2 sources) Morphine; Translations: [MORPHINE] Drug Allergy 08-11-20 13 [facility] Repository (3 sources) Promethazine; Translations: [promethazine] Drug Allergy 08-12-20 22 Loss of consciousness (finding) [facility] (1 source) No Known Medication Allergies; Translations: [No Known Medication Allergies] Propensity to adverse reactions (disorder) [facility] Repository (12 sources) Ciprofloxacin; Translations: [CIPROFLOXACIN] Drug Allergy 06-07-20 23 Hives [facility] (11 sources) Morphine Drug Allergy 08-11-20 13 Other: See Comments, Other (See Comments) [facility] Medications Current Medications Medication Drug Class(es) Dates Sig (Normalized) Sig (Original) Acetaminophen (20 sources) Start: 06-22-2025 acetaminophen (TYLENOL) tablet 650 mg Start: 05-28-2025 acetaminophen (TYLENOL) tablet 650 mg Start: 04-30-2014 take 325-650 mg by m outh every four hours as needed acetaminophen 325 mg tablet Take 1-2 tablets by mouth every 4 hours as needed. 0 04/30/2014 Active Comment on above: Take 1-2 tablets by mouth every 4 hours as needed. alendronic acid 70 mg oral tablet (20 sources) Bisphosphonate Start: 12-23-2016 Start: 01-07-2014 take 1 tablet by bettina th every week in the morning alendronate (FOSAMAX) [...] minutes. amitriptyline hydrochloride 10 mg oral tablet (19 sources) Tricyclic Antidepressant Start: 09-02-20 19 take 1 tablet by mouth once daily at bedtime amitriptyline (ELAVIL) 10 mg tablet Take 1 tablet by mouth daily at bedtime. 09/02/2019 Active End: 05-28-2025 take 1 tablet by mouth once daily amitriptyline (ELAVIL) 25 MG tablet Take 25 mg by mouth nightly 05/28/2025 Discontinued (LIST CLEANUP) Comment on above: Take 1 tablet by bettina th daily at bedtime. aspirin 81 mg delayed release oral tablet (20 sources) Platelet Aggregation Inhibitor, Nonsteroidal Anti-inflammatory Drug Start: 07-10-2022 aspirin Refills(s) 0 Start Date: 07/10/22 Status: Ordered Start: 12-28-2009 take 81 mg by mouth once daily 81 mg, Oral, DAILY, First dose on Sat06/23/25 at 0900, Until Discontinued, Do not crush or break., On hold since Sat06/25/2025 at 1224 until manually unheld Comment on above: Take one(1) tablet d [...] daily. Cipro (3 sources) Quinolone Antimicrobial Start: 2021 Cipro Oral, q12hr, Refills(s) 0 Start Date: 07/10/22 Status: Ordered dorzolamide 20 mg/ml ophthalmic solution (4 sources) Carbonic Anhydrase Inhibitor Start: 2024 End: 2024 take 1 drop(s) into the eye(s) twice daily in the morning dorzolamide (TRUSOPT) 2 % ophthalmic solution Use 1 Drop in the left eye two times a day. 10 mL 01/23/2025 9:52 AM EST 01/22/2025 05/03/2025 Active 1 ml epoetin david-epbx 3000 unt/ml injection (1 source) Erythropoiesis-stimu lating Agent Start: 2024 inject 1 dose by subcutaneous injection once daily 6,000 Units, SubCUTAneous, EVERY MWF (Once per day on Saturday), First dose on Sat06/23/25 at 1700 ergocalciferol 1.25 mg oral capsule (7 sources) Provitamin D2 Compound Start: 2024 End: 2024 take 1 capsule by mouth every week Ergocalciferol (VITAMIN D) 36513 units CAPS Take 50,000 Units by mouth once a week for 12 doses 12 capsule 06/30/2025 06/26/2025 Discontinued Start: 06-30-2025 End: 09-16-2025 take 1 capsule by mouth every week Vitamin D, Ergocalciferol, 20105 units CAPS Take 50,000 Units by mouth once a week for 12 doses 12 capsule 06/30/2025 09/16/2025 Active Start: 06-23-2025 End: 07-21-2025 take 4 capsules by mouth every week 50,000 Units, Oral, WEEKLY, 4 doses, First dose on Sat06/23/25 at 1300, Last dose on Sat07/14/25 at 0900, Capsule may be opened and the liquid contents removed for administration Start: 01-22-2025 End: 02-20-2025 take 1 capsule by mouth every week in the morning ergocalciferol 50,000 unit capsule (VITAMIN D2, DRISDOL) Take 1 capsule by mouth one time a week for 4 doses. 5 capsule 01/23/2025 9:52 AM EST 01/22/2025 Active lactobacillus rhamnosus gg [id number] unt oral capsule (3 sources) Start: 06-27-2025 End: 06-26-2025 take 1 capsule by mouth once daily at breakfast lactobacillus (CULTURELLE) capsule Take 1 capsule by mouth daily (with breakfast) 90 capsule 06/27/2025 06/26/2025 Discontinued Start: 06-27-2025 take 1 capsule by mo uth once daily at breakfast lactobacillus (CULTURELLE) capsule Take 1 capsule by mouth daily (with breakfast) 90 capsule 06/27/2025 Active Start: 06-26-2025 take 1 capsule by mo uth once daily at breakfast 1 capsule, Oral, DAILY WITH BREAKFAST, First dose on 06/26/25 at 0845, Until Discontinued, Therapeutic equivalent/ formulary substitution of BACID Do not add to warm or hot foods or beverages. Caps may be opened & mixed in a cool beverage or sprinkled onto baby food or applesauce. Mix entire packet content into cool food or drink until dissolved. latanoprost 0.05 mg/ml ophthalmic solution (4 sources) Prostaglandin Analog Start: 01-22-2025 End: 04-22-2025 take 1 drop(s) into the eye(s) once daily at bedtime latanoprost (XALATAN) 0.005 % ophthalmic solution Use 1 Drop in the left eye daily at bedtime. 2.5 mL 01/23/2025 9:52 AM EST 01/22/2025 04/22/2025 Active Losartan (17 sources) Angiotensin 2 Receptor Avtar [...] on above: Take one(1) tablet d aily. ondansetron (ZOFRAN-ODT) disintegrating tablet 4 mg (2 sources) Start: 06-22-2025 ondansetron (ZOFRAN-ODT) disintegrating tablet 4 mg Start: 05-28-2025 ondansetron (Z OFRAN-ODT) disintegrating tablet 4 mg pantoprazole 40 mg delayed release oral tablet (4 sources) Proton Pump Inhibitor Start: 01-22-2025 End: 03-18-2025 take 1 tablet by mouth twice daily before mealtime, then take 4 tablets by mouth in the evening pantoprazole DR (PROTONIX) 40 mg tablet Take 1 tablet by mouth two times a day before meals at 6 am and 4 pm for 108 doses. 108 tablet 01/23/2025 9:52 AM EST 01/22/2025 03/18/2025 Active pantoprazole (PROTONIX) 40 mg in sodium chloride (PF) 0.9 % 10 mL injection (1 source) Start: 06-23-2025 40 mg, IntraVENous, DAILY, First dose on Sat06/23/25 at 1530, Reconstitute with 10 mL 0.9 % sodium chloride and administer over at least 2 minutes. perflutren lipid microspheres 1.3 mL in NaCl (PF) 0.9% 10 mL injection (DEFINITY) (9 sources) Start: 02-09-2022 End: 05-11-2023 perflutren lipid microspheres 1.3 mL in NaCl (PF) 0.9% 10 mL injection (DEFINITY) polyethylene glycol 3350 35826 mg powder for oral solution (2 sources) Osmotic Laxative Start: 06-22-2025 Start: 05-28-2025 polyvinyl alcohol 0.005 ml/ml / povidone 6 mg/ml ophthalmic solution (1 source) Start: 05-28-2025 predniSONE (3 sources) Start: 07-10-2022 predniSONE Ora l, Daily, Refills(s) 0 Start Date: 07/10/22 Status: [...] tablet by bettina th daily at bedtime. 12 hr timolol 5 mg/ml ophthalmic solution [...] Drug Class(es) Dates Sig (Normalized) Sig (Original) amylase 54269 unt / lipase 5000 unt / protease 42525 unt delayed release oral capsule (20 sources) Start: 06-22-2025 take 48637 [IU] by mouth three times daily at mealtime 20,000 Units, Oral, 3 TIMES DAILY WITH MEALS, First dose on Sat06/22/25 at 2000, Until Discontinued, Substituted for pancrelipase (see SOFTWARE TECHNICAL LEAD medication list). Start: 06-22-2025 take 5000 [IU] by mo uth three times daily at mealtime 5,000 Units, Oral, 3 TIMES DAILY WITH MEALS, First dose on Sat06/22/25 at 2000, Until Discontinued, Substituted for pancrelipase (see SOFTWARE TECHNICAL LEAD medication list). Start: 05-28-2025 take 3 capsules by m outh three times daily CREON 21084-26722 units delayed release capsule TAKE 3 CAPSULES BY MOUTH 3 TIMES A DAY FOR 30 DAYS 05/28/2025 Suspended Start: 01-22-2025 End: 04-22-2025 take 3 capsules by mouth three times daily at mealtime tglpkc-iuexnrky-nuotpzt (CREON) 24,000-76,000 -120,000 unit delayed release capsule Take 3 capsules by mouth three times a day with meals. 800 capsule 01/23/2025 9:52 AM EST 01/22/2025 04/22/2025 Active Start: 07-10-2022 Creon Oral, TI D, Refills(s) 0 Start Date: 07/10/22 Status: Ordered Start: 12-28-2016 End: 05-28-2025 take 3 capsules by mouth three times daily at mealtime nzxwar-dkmvvivx-gwbjzzv (CREON) 08041 UNITS delayed release capsule Take 3 capsules by mouth 3 times daily (with meals) 180 capsule 2 12/28/2016 05/28/2025 Discontinued (Medication Clarified) End: 06-26-2025 take 4 capsules by mouth three times daily at mealtime bymnol-gmxgyjta-vcbpllj (CREON) 53948-048540 units CPEP delayed release capsule Take 4 capsules by mouth 3 times daily (with meals) 06/26/2025 Discontinued (Stop Taking at Discharge) lipase-protease- amylase (CREON) 24,000-76,000 -120,000 unit cpDR [...] AND 1 CAPSULE IF HAVING A SNACK ascorbic acid 500 mg chewable tablet (6 sources) Vitamin C Start: 5 take 500 mg by mouth once daily 500 mg, Oral, DAILY, First dose on Sat06/23/25 at 0900, Until Discontinued atorvastatin 10 mg oral tablet (2 sources) HMG-CoA Reductase Inhibitor Start: 5 10 mg, Oral, DAILY, First dose on Sat06/22/25 at 2000, Until Discontinued, Substituted for Simvastatin (ZOCOR). Start: 05-28-2025 20 mg, Oral, D AILY, First dose on Sat05/28/25 at 1745, Until Discontinued, Substituted for Simvastatin (ZOCOR). benoxinate hydrochloride 4 mg/ml / fluorescein sodium 3 mg/ml ophthalmic solution (1 source) Diagnostic Dye Start: 01-20-2025 End: 01-21-2025 fluorescein-benoxinate 0.3-0.4 % 1 Drop (FLURESS) calcium acetate 667 mg oral capsule (1 source) Start: 06-23-2025 take 1 capsule by mouth three times daily at mealtime 667 mg (1 capsule), Oral, 3 TIMES DAILY WITH MEALS, First dose on Sat06/23/25 at 1345, Until Discontinued calcium carbonate 500 mg chewable tablet (4 sources) Start: 06-24-2025 take 1000 mg by mouth twice daily 1,000 mg, Oral, 2 times daily, First dose on Sat06/24/25 at 1130, Until Discontinued Start: 06-18-2025 take 1 tablet by bettina th at bedtime oyster calcium (OYST-SONA) 500 MG TABS Take 1 tablet by mouth in the morning and at bedtime 60 tablet 3 06/18/2025 Suspended 100 ml calcium gluconate 20 mg/ml injection (5 sources) Start: 06-22-2025 End: 06-25-2025 2,000 mg, IntraVENous, at 50 mL/hr, Administer over 120 Minutes, Once, On Sat06/25/25 at 1215, For 1 dose Start: 05-29-2025 End: 05-29-2025 2,000 mg, IntraVENous, at 50 mL/hr, Administer over 120 Minutes, ONCE, On Sat05/29/25 at 1045, For 1 dose calcium gluconate 2,000 mg in sodium chloride 0.9 % 100 mL IVPB (1 source) Start: 06-22-2025 End: 06-23-2025 2,000 mg, IntraVENous, ONCE, 1 dose, On Sat06/22/25 at 2330, Infuse at 1 gram/hr. carvedilol 12.5 mg oral tablet (15 sources) alpha-Adrenergi c Avtar, beta-Adrenergic Avtar Start: 01-25-2025 take 12.5 mg by mouth twice daily at mealtime 12.5 mg, Oral, 2 TIMES DAILY WITH MEALS, First dose on Sat06/22/25 at 2000, Until Discontinued, Administer with food to minimize the risk of orthostatic hypotension take 1 tablet by bettina twice daily at mealtime carvedilol (COREG) 25 mg tablet Take 25 mg by mouth two times a day with meals. Suspended cholecalciferol 0.025 mg oral tablet (14 sources) Vitamin D Start: 04-01-2012 take 1 tablet by mouth once daily Cholecalciferol, Vitamin D3, (VITAMIN D) 1,000 unit Tab Take 1 tablet by mouth once daily. 04/01/2012 Suspended Comment on above: Take 1 tablet by bettina once daily. sugar-free cholestyramine resin 4000 mg powder for oral suspension (3 sources) Bile Acid Sequestrant Start: 06-26-2025 End: 06-26-2025 take 1 dose by mouth twice daily cholestyramine light 4 g packet Take 1 packet by mouth 2 times daily 60 packet 06/26/2025 06/26/2025 Discontinued clonazePAM 0.5 mg oral tablet (20 sources) Benzodiazepine Start: 07-10-2022 clonazepam Oral, TID, Refills(s) 0 Start Date: 07/10/22 Status: Ordered Start: 03-04-2019 clonazePAM (KL ONOPIN) 0.5 mg tablet Take 2 tablets by mouth as needed for up to 180 days. 03/04/2019 Suspended Start: 12-28-2016 End: 05-30-2025 take 0.5 mg by mouth twice daily as needed 0.5 mg, Oral, 2 TIMES DAILY PRN, Starting on Sat06/22/25 at 1937, Until Discontinued, Anxiety Comment on above: Take 2 tablets by mo [facility] as needed for up to 180 days. codeine sulfate 30 mg oral tablet (1 source) Opioid Agonist End: 2024 take 1 tablet by mouth every eight hours as needed for pain codeine 30 MG tablet Take 30 mg by mouth every 8 hours as needed for Pain . 05/28/2025 Discontinued (Therapy completed) cycloSPORINE 0.5 mg/ml ophthalmic suspension (5 sources) Calcineurin Inhibitor Immunosuppressant take 1 drop(s) into the eye(s) at bedtime cycloSPORINE (RESTASIS) 0.05 % ophthalmic emulsion Place 1 drop into the left eye in the morning and at bedtime Suspended diphenhydrAMINE hydrochloride 2.5 mg/ml oral solution (1 source) Histamine-1 Receptor Antagonist Start: 2024 End: 2024 diphenhydrAMINE 12.5-50 mg oral liquid (BENADRYL) dorzolamide HCl/timolol maleat (COSOPT OPHTHALMIC) (4 sources) take 1 drop(s) into the eye(s) twice daily dorzolamide HCl/timolol maleat (COSOPT OPHTHALMIC) Use 1 Drop in the left eye two times a day. Suspended escitalopram 10 mg oral tablet (1 source) Serotonin Reuptake Inhibitor End: 2024 take 1 tablet by mouth once daily escitalopram (LEXAPRO) 10 MG tablet Take 10 mg by mouth daily 05/28/2025 Discontinued (LIST CLEANUP) fluorescein 250 mg injection (1 source) Start: 2024 End: 2024 fluorescein 250 mg injection levothyroxine sodium 0.112 mg oral tablet (20 sources) l-Thyroxine Start: 2024 take 112 ug by mouth once daily before breakfast 112 mcg, Oral, DAILY BEFORE BREAKFAST, First dose on Sat06/23/25 at 0700, Until Discontinued, Tube feeding (TF) interaction, obtain physician order to manage, recommend holding TF for 30 minutes before and after dose. Start: 05-29-2025 take 100 ug by mouth once daily before breakfast 100 mcg, Oral, DAILY BEFORE BREAKFAST, First dose on Sat05/29/25 at 0700, Until Discontinued, Tube feeding (TF) interaction, obtain physician order to manage, recommend holding TF for 30 minutes before and after dose. Start: 01-22-2025 End: 04-22-2025 take 1 tablet by mouth once daily [...] once daily. loperamide hydrochloride 2 mg oral capsule (20 sources) Opioid Agonist Start: End: take 1 capsule by mouth four times daily as needed for diarrhea loperamide (IMODIUM) 2 MG capsule Take 1 capsule by mouth 4 times daily as needed for Diarrhea 40 capsule 06/26/2025 06/26/2025 Discontinued Start: 05-29-2025 End: 06-09-2025 take 1 capsule by mouth four times daily as needed for diarrhea loperamide (IMODIUM) 2 MG capsule Take 1 capsule by mouth 4 times daily as needed for Diarrhea 05/30/2025 06/09/2025 Active Start: 05-29-2025 End: 05-29-2025 2 mg, Oral, ONCE, 1 dose, On 05/29/25 at 1215, After each loose stool. Start: 01-22-2025 take 1 tablet by bettina th every twelve hours as needed loperamide HCl (IMODIUM) 2 mg tab Take 1 tablet by mouth two times a day as needed. 12 tablet 01/23/2025 9:52 AM EST 01/22/2025 Active take 1 tablet by bettina th three times daily Loperamide HCl (IMODIUM) 2 mg tab Take 2 mg by mouth three times daily. Suspended Comment on above: Take 2 mg by mouth t hree times daily. magnesium oxide 400 mg oral tablet (20 sources) Start: 05-28-2025 take 1 tablet by mouth at bedtime magnesium oxide (MAG-OX) 400 MG tablet Take 1 tablet by mouth in the morning, at noon, and at bedtime 05/30/2025 Suspended Start: 01-25-2025 take 1 tablet by bettina th three times daily magnesium oxide (MAG-OX) 400 mg (241.3 mg magnesium) tablet Take 1 tablet by mouth three times a day. 90 tablet 01/25/2025 Active Start: 03-04-2019 take 1 tablet by bettina th once daily magnesium oxide (MAG-OX) 400 mg (241.3 mg magnesium) tablet Take 1 tablet by mouth once daily. 03/04/2019 Suspended Start: 12-28-2016 End: 05-30-2025 take 2 tablets by mouth twice daily magnesium oxide (MAG-OX) 400 MG tablet Take 2 tablets by mouth 2 times daily 60 tablet 12/28/2016 05/30/2025 Discontinued Comment on above: Take 1 tablet by bettina th once daily. 50 ml magnesium sulfate 40 mg/ml injection (2 sources) Start: 06-24-2025 End: 06-24-2025 2,000 mg, IntraVENous, at 25 mL/hr, Administer over 2 Hours, ONCE, On Sat06/24/25 at 1100, For 1 dose, Recommended infusion rate not to exceed 1,000 mg (milligrams) per hour. Start: 06-22-2025 End: 06-22-2025 2,000 mg, IntraVENous, at 25 mL/hr, Administer over 2 Hours, ONCE, On Sat06/22/25 at 1715, For 1 dose Multiple Vitamin (MULTIVITAM IN ADULT PO) (5 sources) take 1 tablet by bettina th once daily Multiple Vitamin (MULTIVITAMIN ADULT PO) Take 1 tablet by mouth daily Suspended take 1 tablet by mouth once tigre y Multiple Vitamin (MULTIVITAMIN ADULT PO) Take 1 tablet by mouth daily Active multivitamin 1 tablet (1 source) Start: 06-23-2025 take 1 tablet by mouth once daily 1 tablet, Oral, DAILY, First dose on Sat06/23/25 at 0900, Until Discontinued mycophenolate mofetil 250 mg oral capsule (20 sources) Start: 06-22-2025 take 500 mg by mouth twice daily 500 mg, Oral, 2 TIMES DAILY, First dose on Sat06/22/25 at 2100, Until Discontinued, Do not crush or break. Start: 05-28-2025 500 mg, Oral, 2 TIMES DAILY, First dose on Sat05/28/25 at 2100, Until Discontinued, Do not crush or break. We do not have this medication in stock, and there is no direct substitute, or substitute was declined. The medication is marked patient supplied, however if the patient cannot provide their own medication then contact the prescriber for an alternative. Start: 01-30-2025 mycophenolate mofetil (CELLCEPT) 250 mg [...] by transplant 360 capsule 3 09/12/2021 Active Start: 12-28-2016 take 2 capsules by m outh twice daily mycophenolate (CELLCEPT) 250 MG capsule Take 2 capsules by mouth 2 times daily 60 capsule 12/28/2016 Suspended Comment on above: take 2 capsules by m outh every morning and 2 capsules every evening. 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 Sanderson-3 Fatty Acids (FISH OIL) 600 MG CAPS (5 sources) take 1 tablet by mouth once daily Sanderson-3 Fatty Acids (FISH OIL) 600 MG CAPS Take 1 tablet by mouth Daily Suspended take 1 tablet by mouth once tigre y Sanderson-3 Fatty Acids (FISH OIL) 600 MG CAPS Take 1 tablet by mouth Daily Active omega-3 fatty acids 1,000 mg cap (14 [...] 0259, Administer for dilation PROTECT FROM LIGHT pramipexole dihydrochloride 0.25 mg oral tablet (20 sources) Nonergot Dopamine Agonist Start: 06-22-2025 take 0.5 mg by mouth once daily at bedtime 0.5 mg, Oral, NIGHTLY, First dose on Sat06/22/25 at 2100, Until Discontinued, Give 2-3 hours before bedtime. Start: 07-10-2022 pramipexole Or al, Refills(s) 0 Start Date: 07/10/22 Status: Ordered Start: 04-25-2015 take 0.25 mg by mout h once daily at bedtime 0.25 mg, Oral, NIGHTLY, First dose on Sat05/28/25 at 2100, Until Discontinued, Give 2-3 hours before bedtime. Comment on above: Take 1 tablet by bettina th daily at bedtime. proparacaine hydrochloride 5 mg/ml ophthalmic solution (1 source) Local Anesthetic Start: End: proparacaine 0.5 % 1 Drop (ALCAINE) sodium bicarbonate 650 mg oral tablet (8 sources) Start: take 1300 mg by mouth three times daily 1,300 mg, Oral, 3 TIMES DAILY, First dose on Sat06/22/25 at 2100, Until Discontinued Start: 06-18-2025 take 2 tablets by [facility] three times daily sodium bicarbonate 650 MG tablet Take 2 tablets by mouth 3 times daily 180 tablet 3 06/18/2025 Suspended Start: 01-22-2025 take 1 tablet by [facility] three times daily in the morning sodium bicarbonate 650 mg tablet Take 1 tablet by mouth three times a day. 270 tablet 01/23/2025 9:52 AM EST 01/22/2025 Active sodium bicarbonate 75 mEq in sodium chloride 0.45 % 1,000 mL infusion (1 source) Start: 06-23-2025 End: 06-25-2025 IntraVENous, at 50 mL/hr, CONTINUOUS, Starting on Sat06/23/25 at 1300 50 ml sodium chloride 9 mg/m l injection (20 sources) Start: 06-22-2025 10 mL, IntraVE Nous, EVERY 12 HOURS SCHEDULED (2 times per day), First dose on Sat06/22/25 at 2100, Until Discontinued Start: 06-22-2025 Start: 06-22-2025 End: 06-23-2025 IntraVENous, at 75 mL/hr, CO NTINUOUS, Starting on Sat06/22/25 at 2000, For 24 hours, Complete last bag that is running at 24 hours and then saline lock IV Start: 05-28-2025 Start: 05-28-2025 End: 05-28-2025 500 mL, IntraVENous, at 247. 9 mL/hr, Administer over 121 Minutes, ONCE, On Sat05/28/25 at 1745, For 1 dose Start: 02-09-2022 End: 05-11-2023 sodium chloride 0.9 % (flush ) 10 mL (BD POSIFLUSH) tacrolimus 1 mg oral capsule (20 sources) Calcineurin Inhibitor Immunosuppressant Start: 06-23-2025 take 1 mg by mouth once daily 1 mg, Oral, DAILY, First dose (after last modification) on Sat06/23/25 at 1030, Until Discontinued Start: 05-28-2025 take 0.5 mg by mouth twice elier ly 0.5 mg, Oral, 2 TIMES DAILY, First dose on Sat05/28/25 at 2100, Until Discontinued Start: 01-22-2025 take 1 capsule by mo uth twice daily in the morning tacrolimus IR [...] No Dr Don 0 04/12/2022 05/08/2022 Discontinued take 2 capsules by ray [facility] once daily tacrolimus (PROGRAF) 0.5 MG capsule Indications: for a total of 1mg/daily Take 1 capsule by mouth 2 times daily Indications: for a total of 1mg/daily Suspended Comment on above: Take 1 capsule by [...] heart replaced by transplant. No Dr Don tropicamide 10 mg/ml ophthalmic solution (2 sources) Anticholinergic Start: 01-20-2025 End: 01-21-2025 tropicamide 1 % 1 Drop (MYDRIACYL) Start: 01-20-2025 End: 01-21-2025 1 Drop, BOTH EYES, DIRECT ED, Starting on 01/20/25 at 1530, Until Faith 01/21/25 at 0259, Administer for dilation VITAMIN D PO (5 sources) take 1 tablet by bettina th once daily VITAMIN D PO Take 1 tablet by mouth daily Unsure of dose Suspended take 1 tablet by mouth once tigre y VITAMIN D PO Take 1 tablet by mouth daily Unsure of dose Active Problems Active Problems Problem Classification Problem Date [...] Onset: 5 01-12-2025 Chronic Chronic kidney disease (20 sources) Chronic kidney disease stage 3B ; [...] arteriosclerosis 07-10-2022 Chronic Deficiency and other anemia (9 sources) Anemia; Translations: [Anemia, unspecified] Onset: 7 07-10-2022 Episodic Deficiency and other anemia (8 [...] diabetes mellitus without complications] Onset: 4 Chronic Diseases of white blood cells (13 sources) Leukocytosis; Translations: [Elevated white blood cell count, unspecified] Onset: 7 Resolved: 5 01-11-2025 Chronic Disorders of lipid metabolism (8 sources) Hyperlipidemia; Translations: [Hyperlipidemia, unspecified] Onset: 5 01-11-2025 Chronic Diverticulosis and diverticulitis (6 sources) Diverticulum of large intestine without hemorrhage; Translations: [Diverticulosis of large intestine without perforation or abscess without bleeding] Onset: 7 12-24-2016 Chronic Essential hypertension (20 sources) Hypertensive disorder; Translations: [Essential (primary) hypertension] Onset: 3 Resolved: 9 07-10-2022 Chronic Fever of unknown origin (4 sources) Fever, unspecified; Translations: [FEVER UNSPECIFIED] Onset: 3 Episodic Fluid and electrolyte disorders (20 sources) Hypo-osmolality and or hyponatremia; Translations: [Hypo-osmolality and hyponatremia] Onset: 7 Resolved: 5 Episodic Gastritis and duodenitis (6 sources) Duodenitis; Translations: [Duodenitis without bleeding] Onset: 7 12-24-2016 Episodic Gastroduodenal ulcer (except hemorrhage) (4 sources) Ulcer of duodenum; Translations: [Duodenal ulcer, unspecified as acute or chronic, without hemorrhage or perforation] Onset: 5 01-22-2025 Chronic Gastroduodenal ulcer (except hemorrhage) (4 sources) Acute gastric ulcer without hemorrhage AND without perforation; Translations: [Acute gastric ulcer without hemorrhage or perforation] Onset: 5 01-22-2025 Episodic Glaucoma (4 sources) Secondary glaucoma ; 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, left eye, severe stage] Onset: 5 01-12-2025 Chronic Heart valve disorders (1 source) Rheumatic disorders of both mitral and aortic valves; Translations: [RHEUMATIC D/O MITRAL AORTIC VALVES] Onset: 3 Chronic Hypertension with complications and secondary hypertension (5 sources) Hypertensive heart disease with heart failure; Translations: [Chronic kidney disease due to hypertension] Onset: 3 06-22-2025 Chronic Immunity disorders (8 sources) Patient immunocompromised; [...] infection (8 sources) Viral gastroenteritis due to Macomb-like agent; Translations: [Acute gastroenteropathy due to [place] agent] Onset: 5 01-22-2025 Episodic Mood disorders (20 sources) Depressive disorder; Translations: [Depression] Onset: 3 Resolved: 5 07-10-2022 Chronic Mood disorders (2 sources) Mood disorders; Translations: [Depression, unspecified] Onset: 3 Nonspecific chest pain (1 source) Chest pain; Translations: [Chest pain, unspecified] Onset: 3 Episodic Nutritional deficiencies (17 sources) Deficiency of macronutrients; Translations: [Unspecified severe protein-calorie malnutrition] Onset: 7 Resolved: 5 01-13-2025 Chronic Other aftercare (1 source) Other continuous churn buttermaker (current) drug therapy; Translations: [OTH [facility] CURRENT DRUG THERAPY] Onset: 3 Episodic Other and ill-defined cerebrovascular disease (8 sources) Aneurysm of internal carotid artery; 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, nonruptured] Onset: 5 01-11-2025 Chronic Other circulatory disease (8 sources) Heart transplant status; Translations: [HEART TRANSPLANT STATUS] Onset: 3 Chronic Other diseases of kidney and ureters (3 sources) Kidney disease 07-10-2022 Episodic Other diseases of kidney and ureters (6 sources) Hydronephrosis; Translations: [Unspecified hydronephrosis] Onset: 5 05-29-2025 Episodic Other eye disorders (1 source) Bilateral [...] Episodic Other nutritional; endocrine; and metabolic disorders (13 sources) Hypocalcemia; Translations: [Hypocalcemia] Onset: 5 01-11-2025 Chronic Other nutritional; endocrine; and metabolic disorders (15 sources) Hypomagnesemia; Translations: [Hypomagnesemia] Onset: 7 Resolved: 5 01-11-2025 Chronic Other nutritional; endocrine; and metabolic disorders (2 sources) Hypomagnesemia; Translations: [Hypomagnesemia] Onset: 5 Chronic Other nutritional; endocrine; and metabolic disorders (2 sources) Hypocalcemia; Translations: [Hypocalcemia] Onset: 5 Chronic Other nutritional; endocrine; and metabolic disorders (3 sources) Hyperphosphatemia; Translations: [Other disorders of phosphorus metabolism] Onset: 5 06-23-2025 Chronic Other nutritional; endocrine; and metabolic disorders (1 source) Abnormal weight loss; Translations: [Abnormal weight loss] Onset: 4 Episodic Other skin disorders (2 sources) Mass of skin of right lower limb; Translations: [Disorder of the skin and subcutaneous tissue, unspecified] 06-25-2025 Episodic Other skin disorders (1 source) Disorder of the skin and subcutaneous tissue, unspecified; Translations: [Disorder of the skin and subcutaneous tissue, unspecified] Onset: 5 Episodic Other upper respiratory infections (9 sources) Chronic ethmoidal sinusitis; Translations: [Chronic ethmoidal sinusitis] Onset: 7 Resolved: 3 08-12-2013 Chronic Pancreatic disorders (not diabetes) (1 source) Other chronic pancreatitis; Translations: [OTHER CHRONIC PANCREATITIS] Onset: 2 Chronic Pancreatic disorders (not diabetes) (20 sources) Disorder of pancreas; Translations: [Pancreatic insufficiency] Onset: 7 07-12-2022 Episodic Jamila-; endo-; and myocarditis; cardiomyopathy (except that caused by tuberculosis or sexually transmitted disease) (5 sources) Heart valve disorder; Translations: [Dilated cardiomyopathy] Onset: 2 07-10-2022 Chronic Pulmonary heart disease (2 sources) Pulmonary hypertension, unspecified; Translations: [Pulmonary hypertension, unspecified] Onset: 5 Chronic Residual codes; unclassified (4 sources) Localized [...] W/AND (SUSP) EXPOS COVID-19] Onset: 2 Unclassified (2 sources) Acidosis, unspecified; Translations: [Acidosis, unspecified] Onset: 5 Past or Other Problems Problem Classification Problem [...] kidney] Onset: 3 Resolved: 4 07-10-2022 Episodic Deficiency and other anemia (1 source) Anemia, unspecified; Translations: [Anemia, unspecified] Onset: 7 Episodic Esophageal disorders (9 sources) Gastroesophageal reflux disease; Translations: [Gastro-esophageal reflux disease without esophagitis] Onset: 3 Resolved: 3 11-27-2021 Chronic Gastrointestinal hemorrhage (2 sources) Gastrointestinal hemorrhage, unspecified; Translations: [Gastrointestinal hemorrhage, unspecified] Onset: 5 Episodic Genitourinary symptoms and ill-defined conditions (1 source) Personal history of urinary (tract) infections; Translations: [PERS HX URINARY TRACT INFECTIONS] Onset: 2 Episodic Malaise and fatigue (3 sources) Weakness; Translations: [WEAKNESS] Onset: 2 Episodic Mood disorders (5 sources) Mood disorder due to a general medical condition; Translations: [Mood disorder due to known physiological condition, unspecified] Onset: 7 2016 Episodic Nausea and vomiting (11 sources) Nausea and vomiting; Translations: [Nausea with vomiting, unspecified] Onset: 5 Resolved: 5 07-12-2022 Episodic Noninfectious gastroenteritis (20 sources) Gastroenteritis; Translations: [Noninfective gastroenteritis and colitis, unspecified] Onset: 4 07-12-2022 Episodic Other aftercare (1 source) care home (current) use of aspirin; Translations: [[facility] CURRENT USE OF ASPIRIN] Onset: 2 Episodic Other aftercare (9 sources) Patient encounter status; Translations: [Other [facility] (current) drug therapy] Onset: 8 Resolved: 3 08-12-2013 Episodic Other circulatory disease (9 sources) Orthostatic hypotension; Translations: [Orthostatic hypotension] Onset: 4 Resolved: 4 11-27-2021 Episodic Other endocrine disorders (8 sources) Hypoglycemia; Translations: [Hypoglycemia, unspecified] Onset: 5 Resolved: 5 01-11-2025 Chronic Other gastrointestinal disorders (14 sources) Diarrhea; Translations: [Diarrhea, unspecified] Onset: 4 [...] [Shortness of breath] Onset: 4 Episodic Other screening for suspected conditions (not [...] [Acute cystitis without hematuria] Onset: 5 Episodic Results Test Name Value Interpretation Reference Range [facility] Gastroenterology Office/Clin ic Noteon 07-06-2025 Gastroenterology Office/Clinic Note Chief Complaint pt c/o chronic diarrhea History of Present Illness Past medical history heart transplant 2005 ,exocrine pancreatic insufficiency, Hypertension, hypothyroidism, chronic kidney disease, type 2 diabetes Patient is an 79-year-old female who presents to GI clinic today as a referral for diarrhea. Patient does have history of exocrine pancreatic insufficiency. Is on Creon 24,000 units 3 capsules 3 times daily. Patient states over the last year has been in and out of the hospital with dehydration from diarrhea. Does note having stool workup recently completed at [facility]. Does note recent hospitalization. States was discharged on 4 Imodium daily. Patient states at its worst having 10+ bowel movements daily. Does note the diarrhea can be intermittent. States may have days of somewhat normal bowel movements. Does note having a lot of abdominal noise and spasms. Has lost a lot of weight recently. Does note worsening epigastric discomfort. Notes burning in abdomen. States worsening acid reflux with occasional nausea. States at times does not feel like eating. Does note history of gastric ulcer. Denies any hematemesis hematochezia or melena. Does note passed within the last year and symptoms have became worse. Previous colonoscopy about 7 years ago and EGD 10 years ago in [place]. Review of Systems All systems have been reviewed and are negative other than those listed in the HPI Physical Exam Vitals & Measurements HR: 79 (Peripheral) BP: 168/85 SpO2: 99% HT: 157 cm WT: 49 kg BMI: 19.88 General: Alert and oriented, well nourished, no acute distress Eye: tracks well, anicteric sclera HENT: Normocephalic, external ear normal, no discharge, moist oral mucosa Neck: Supple, trachea midline Lungs: symmetrical expansion, nonlabored respirations Heart: regular rate Abdomen: soft, nondistended Musculoskeletal: no deformity, normal ambulation, no swelling Skin: clean, dry, intact, no jaundice Neurologic: A&Ox3, no focal deficits Psychiatric: Cooperative, appropriate mood and affect Additional Vitals BP Position/Location: Right arm Assessment and Plan: 1. Diarrhea Colonoscopy GoLytely Imodium/antidiarrhea l/Pepto bismuth as needed Increase water (6-8 glasses a day) Daily exercise increase fiber in diet Fiber supplementation daily (Metamucil psylium) 3.4 g daily- 3x a day -serving size varies with different products Low FODMAP Diet Vegetable such as eggplant, green beans, boc Horacio, Singh peppers, carrots, cucumbers, lettuce, potatoes, tomatoes, zucchini Fruits such as cantaloupe, grapes, kiwi fruit, mandrin orange, pineapple, strawberries Such as almond milk, feta cheese, hard cheeses, lactose-free milk, soy milk Protein sources such as eggs, firm tofu, meats/poultry/seafoo d breads and cereals such as cornflakes, oats, rice cakes, sourdough bread, wheat rye barley free breads Sugars and sweeteners such as dark chocolate, maple syrup, rice small syrup, table sugar Nuts and seeds such as macadamia's, peanuts, pumpkin seeds, walnuts - The benefits and risks associated with a colonoscopy have been outlined to the patient. The patient was advised that complications include, but are not limited to, perforation (hole in the bowel), bleeding, infection, electrolyte disturbance from the colon prep and complications associated with sedation (including heart and lung issues that could result in ). The patient verbalized understanding of the risks and consents to the procedure. - d/w patient importance of adequate bowel prep and need for port cdl a driver to accompany day of procedure, verbalizes understanding. Ordered: polyethylene glycol 3350 with electrolytes, See Instructions, for colonoscopy prep, # 4,000 mL, 0 Refill(s), Pharmacy: [place] [id number] Colonoscopy and EGD 2. GERD (gastroesophageal reflux disease) EGD Pantoprazole 20 mg daily Weight loss to alleviate pressure in midsection Elevate head of bed either with 6-8 in blocks under head of bed or wedge pillow Avoid recumbent position for 2- 3 hours after eating Avoid known food triggers such as caffeine, chocolate, spicy foods, high fat foods, carbonated beverages, peppermint Eat small frequent meals Avoid Nicotine Avoid NSAIDS - The benefits and risks associated with an EGD have been outlined to the patient. The patient was advised that complications include, but are not limited to, perforation, bleeding, infection, and complications associated with sedation (including heart and lung issues that could result in ). The patient verbalized understanding of the risks and consents to the procedure. - d/w patient importance of need for port cdl a driver to accompany day of procedure, verbalizes understanding. Ordered: polyethylene glycol 3350 with electrolytes, See Instructions, for colonoscopy prep, # 4,000 mL, 0 Refill(s), Pharmacy: [id number] Colonoscopy and EGD 3. Dyspepsia EGD Ordered: polyethylene glycol 3 (more content not included)... Normal [facility] Basic Metabolic Panelon 06-02 Anion gap [Moles/Vol] 15 mmol/L 9 - 16 mmol/L [facility] Calcium [Mass/Vol] 7.6 mg/dL Low 8.6 - 10.4 mg/dL [facility] Chloride [Moles/Vol] 104 mmol/L 98 - 107 mmol/L [facility] CO2 [Moles/Vol] 19 mmol/L Low 20 - 31 mmol/L [facility] Creatinine [Mass/Vol] 3.8 mg/dL High 0.50 - 0.90 mg/dL [facility] Est, Glom Filt Rate 11 Low - PINF [facility] Comment on above: These results are not intended for use [...] following therapy that affects renal tubular secretion. Glucose [Mass/Vol] 91 mg/dL 74 - 99 mg/dL [facility] Potassium [Moles/Vol] 4.5 mmol/L 3.7 - 5.3 mmol/L [facility] Sodium [Moles/Vol] 138 mmol/L 136 - 145 mmol/L [facility] Urea nitrogen [Mass/Vol] 77 mg/dL High 8 - 23 mg/dL [facility] Urea nitrogen/Creatinine [Mass ratio] 20 mg/mg - 20 [facility] Basic Metabolic Profon 06-26 Anion gap [Moles/Vol] 15 mmol/L Normal - [facility] Comment on above: Performed By: #### F EBC, FERI #### [address] [address] Revenue Audit Clerk: Anand Tilley MD #### RETCT #### [facility] [address] [place], [place] [id number] Revenue Audit Clerk: Jazlyn Bhagat MD BUN/CRE Ratio 20 Normal 9-20 [facility] Comment on above: Performed By: #### F EBC, FERI #### [address] [address] Revenue Audit Clerk: Anand Tilley MD #### RETCT #### [address] [place] [address] Revenue Audit Clerk: Jazlyn Bhagat MD Calcium [Mass/Vol] 7.6 mg/dL Low 8.6-10.4 [facility] Comment on above: Performed By: #### F LUIS FERNANDO, FERI #### [address] [address] Revenue Audit Clerk: Anand Tilley MD #### RETCT #### [address] [place], [place] [id number] Revenue Audit Clerk: Jazlyn Bhagat MD Chloride [Moles/Vol] 104 mmol/L Normal 98-107 [facility] Comment on above: Performed By: #### F LUIS FERNANDO, FERI #### [address] [address] Revenue Audit Clerk: Anand Tilley MD #### RETCT #### [facility] [address] [place] [address] [place], [place] [id number] Revenue Audit Clerk: Jazlyn Bhagat MD CO2 [Moles/Vol] 19 mmol/L Low 20-31 [facility] Comment on above: Performed By: #### F EBAshlee, FERI #### [address] [address] Revenue Audit Clerk: Anand Tilley MD #### RETCT #### [facility] [address] [place] [address] Revenue Audit Clerk: Jazlyn Bhagat MD Creatinine [Mass/Vol] 3.8 mg/dL High 0.50-0.90 [facility] Comment on above: Performed By: #### F TASHI GOULD #### [address] [id number] Revenue Audit Clerk: Anand Tilley MD #### RETCT #### [facility] [address] [place] [address] Revenue Audit Clerk: Jazlyn Bhagat MD GFR/1.73 sq M.predicted among non-blacks MDRD (S/P/Bld) [Vol rate/Area] 11 mL/min/{1.73_m2} Low >60 [facility] Comment on above: Result Comment: These results are not intended for [...] following therapy that affects renal tubular secretion. Performed By: #### F TASHI GOULD #### [place] [address] [place], [place] [id number] Revenue Audit Clerk: Anand Tilley MD #### RETCT #### [facility] [address] [place] [address] [place] [address] Revenue Audit Clerk: Jazlyn Bhagat MD Glucose [Mass/Vol] 91 mg/dL Normal 74-99 [facility] Comment on above: Performed By: #### F LUIS FERNANDO, FERI #### [facility] [address] [place] [address] Revenue Audit Clerk: Anand Tilley MD #### RETCT #### [facility] [address] [place], [place] [phone] Revenue Audit Clerk: Jazyln Bhagat MD Potassium [Moles/Vol] 4.5 mmol/L Normal 3.7-5.3 [facility] Comment on above: Performed By: #### F EBC, FERI #### [place] [place], [place] [phone] Revenue Audit Clerk: Anand Tilley MD #### RETCT #### [address] [place], [place] [phone] Revenue Audit Clerk: Jazlyn Bhagat MD Sodium [Moles/Vol] 138 mmol/L Normal 136-145 [facility] Comment on above: Performed By: #### F EBC, FERI #### [address] [id number] Revenue Audit Clerk: Anand Tilley MD #### RETCT #### [address] [place], [place] [phone] Revenue Audit Clerk: Jazlyn Bhagat MD Urea nitrogen [Mass/Vol] 77 mg/dL High 8-23 [facility] Comment on above: Performed By: #### F EBAshlee, FERI #### [address] [phone] Revenue Audit Clerk: Anand Tilley MD #### RETCT #### [address] [place], [place] [phone] Revenue Audit Clerk: Jazlyn Bhagat MD CBC auto differentialon -2 Basophils (Bld) [#/Vol] [facility] Basophils/100 WBC (Bld) 0 % 0 - 2 % [facility] Eosinophils (Bld) [#/Vol] 0.09 10*3/uL [facility] Eosinophils/100 WBC (Bld) 1 % 1 - 4 % [facility] Erythrocyte distribution width (RBC) [Ratio] 14.1 % 11.8 - 14.4 % [facility] Hematocrit (Bld) [Volume fraction] 24 % Low 36.3 - 47.1 % [facility] Hemoglobin (Bld) [Mass/Vol] 8 g/dL Low 11.9 - 15.1 g/dL [facility] Immature granulocytes (Bld) [#/Vol] 0.05 10*3/uL [facility] Immature granulocytes/100 WBC (Bld) 1 % High 0 [facility] Interpretation and review of laboratory results Abnormal [facility] Lymphocytes/100 WBC (Bld) 11 % Low 24 - 43 % [facility] Lymphocytes/100 WBC (Bld) 0.77 % Low [facility] MCH (RBC) [Entitic mass] 30.4 pg 25.2 - 33.5 pg [facility] MCHC (RBC) [Mass/Vol] 33.3 g/dL 28.4 - 34.8 g/dL [facility] MCV (RBC) [Entitic vol] 91.3 fL 82.6 - 102.9 fL [facility] Monocytes/100 WBC (Bld) 12 % 3 - 12 % [facility] Monocytes/100 WBC (Bld) 0.85 % [facility] Neutrophils/100 WBC (Bld) 75 % High 36 - 65 % [facility] Nucleated RBC/100 WBC (Bld) [Ratio] 0 % 0.0 per 100 WBC [facility] Platelet mean volume (Bld) [Entitic vol] 10.7 fL 8.1 - 13.5 fL [facility] Platelets (Bld) [#/Vol] 119 10*3/uL Low [facility] RBC (Bld) [#/Vol] 2.63 10*6/uL Low 3.95 - 5.11 m/uL [facility] Segmented neutrophils/100 WBC (Bld) 5.09 % [facility] WBC other (Bld) [#/Vol] 6.9 [facility] CBC with Diffon 06-26-2025 Abs. Basophil <0.03 Normal 0.00-0.20 [facility] Comment on above: Performed By: #### F EBC, FERI #### [address] [address] Revenue Audit Clerk: Anand Tilley MD #### RETCT #### [address] [place], [place] [id number] Revenue Audit Clerk: Jazlyn Bhagat MD Abs.Imm.Granulocyte 0.05 k/uL Normal 0.00-0.30 [facility] Comment on above: Performed By: #### F EBC, FERI #### [address] [address] Revenue Audit Clerk: Anand Tilley MD #### RETCT #### [address] [place] [phone] Revenue Audit Clerk: Jazlyn Bhagat MD Abs.Neutrophil (Seg) 5.09 k/uL Normal 1.50-8.10 [facility] [place] Comment on above: Performed By: #### F EBC, FERI #### [address] [address] Revenue Audit Clerk: Anand Tilley MD #### RETCT #### [address] [place] [phone] Revenue Audit Clerk: Jazlyn Bhagat MD Basophils/100 WBC (Bld) 0 % Normal 0-2 [facility] Comment on above: Performed By: #### F EBC, FERI #### [address] [address] Revenue Audit Clerk: Anand Tilley MD #### RETCT #### [address] [place], [place] [phone] Revenue Audit Clerk: Jazlyn Bhagat MD Eosinophils (Bld) [#/Vol] 0.09 10*3/uL Normal 0.00-0.44 [facility] Comment on above: Performed By: #### F EBC, FERI #### [place] [address] [place] [address] Revenue Audit Clerk: Anand Tilley MD #### RETCT #### [address] [place], [place] [phone] Revenue Audit Clerk: Jazlyn Bhagat MD Eosinophils/100 WBC (Bld) 1 % Normal 1-4 [facility] Comment on above: Performed By: #### F EBC, FERI #### [address] [address] Revenue Audit Clerk: Anand Tilley MD #### RETCT #### [address] [place] [phone] Revenue Audit Clerk: Jazlyn Bhagat MD Erythrocyte distribution width (RBC) [Ratio] 14.1 % Normal 11.8-14.4 [facility] Comment on above: Performed By: #### F EBAshlee, FERI #### [address] [address] Revenue Audit Clerk: Anand Tilley MD #### RETCT #### [address] [place] [phone] Revenue Audit Clerk: Jazlyn Bhagat MD Hematocrit (Bld) [Volume fraction] 24.0 % Low 36.3-47.1 [facility] Comment on above: Performed By: #### F EBC, FERI #### [address] [address] Revenue Audit Clerk: Anand Tilley MD #### RETCT #### [address] [place] [address] Revenue Audit Clerk: Jazlyn Bhagat MD Hemoglobin (Bld) [Mass/Vol] 8.0 g/dL Low 11.9-15.1 [facility] Comment on above: Performed By: #### F EBC, FERI #### [address] [address] Revenue Audit Clerk: Anand Tilley MD #### RETCT #### [address] [place], [place] [phone] Revenue Audit Clerk: Jazlyn Bhagat MD Immature granulocytes/100 WBC (Bld) 1 % High 0 [facility] Comment on above: Performed By: #### F EBAshlee, FERI #### [address] [address] Revenue Audit Clerk: Anand Tilley MD #### RETCT #### [address] [place] [phone] Revenue Audit Clerk: Jazlyn Bhagat MD Lymphocytes (Bld) [#/Vol] 0.77 10*3/uL Low 1.10-3.70 [facility] Comment on above: Performed By: #### F LUIS FERNANDO FERI #### [address] [address] Revenue Audit Clerk: Anand Tilley MD #### RETCT #### [address] [place] [phone] Revenue Audit Clerk: Jazlyn Bhagat MD Lymphocytes/100 WBC (Bld) 11 % Low 24-43 [facility] Comment on above: Performed By: #### F LUIS FERNANDO FERI #### [address] [address] Revenue Audit Clerk: Anand Tilley MD #### RETCT #### [facility] [address] [place] [address] Dr. [place] [phone] Revenue Audit Clerk: Jazlyn Bhagat MD MCH (RBC) [Entitic mass] 30.4 pg Normal 25.2-33.5 [facility] Comment on above: Performed By: #### F LUIS FERNANDO FERI #### [address] [address] Revenue Audit Clerk: Anand Tilley MD #### RETCT #### [facility] [address] [place] [address] [place] [address] Revenue Audit Clerk: Jazlyn Bhagat MD MCHC (RBC) [Mass/Vol] 33.3 g/dL Normal 28.4-34.8 [facility] Comment on above: Performed By: #### F LUIS FERNANDO FERI #### [address] [address] Revenue Audit Clerk: Anand Tilley MD #### RETCT #### [facility] [address] [place] [address] Dr. [place] [phone] Revenue Audit Clerk: Jazlyn Bhagat MD MCV (RBC) [Entitic vol] 91.3 fL Normal 82.6-102.9 [facility] Comment on above: Performed By: #### F LUIS FERNANDO FERI #### [address] [address] Revenue Audit Clerk: Anand Tilley MD #### RETCT #### [address] [place] [phone] Revenue Audit Clerk: Jazlyn Bhagat MD Monocytes (Bld) [#/Vol] 0.85 10*3/uL Normal 0.10-1.20 [facility] Comment on above: Performed By: #### F LUIS FERNANDO, FERI #### [address] [address] Revenue Audit Clerk: Anand Tilley MD #### RETCT #### [facility] [address] [place] [address] [place] [address] Revenue Audit Clerk: Jazlyn Bhagat MD Monocytes/100 WBC (Bld) 12 % Normal 3-12 [facility] Comment on above: Performed By: #### F EBAshlee, FERI #### [address] [address] Revenue Audit Clerk: Anand Tilley MD #### RETCT #### [facility] [address] [place], [place] [phone] Revenue Audit Clerk: Jazlyn Bhagat MD Neutrophil (Seg) 75 % High 36-65 [facility] Comment on above: Performed By: #### F EBC, FERI #### [address] [address] Revenue Audit Clerk: Anand Tilley MD #### RETCT #### [facility] [address] [place], [place] [phone] Revenue Audit Clerk: Jazlyn Bhagat MD NRBC Automated 0.0 per 100 WBC Normal 0.0 [facility] Comment on above: Performed By: #### F EBC, FERI #### [address] [address] Revenue Audit Clerk: Anand Tilley MD #### RETCT #### [facility] [address] [place] [phone] Revenue Audit Clerk: Jazlyn Bhagat MD Platelet mean volume (Bld) [Entitic vol] 10.7 fL Normal 8.1-13.5 [facility] Comment on above: Performed By: #### F EBC, FERI #### [address] [address] Revenue Audit Clerk: Anand Tilley MD #### RETCT #### [facility] [address] [place] [address] Dr. [place] [phone] Revenue Audit Clerk: Jazlyn Bhagat MD Platelets (Bld) [#/Vol] 119 10*3/uL Low 138-453 [facility] Comment on above: Performed By: #### F EBC, FERI #### [address] [address] Revenue Audit Clerk: Anand Tilley MD #### RETCT #### [facility] [address] [place], [place] [phone] Revenue Audit Clerk: Jazlyn Bhagat MD RBC (Bld) [#/Vol] 2.63 10*6/uL Low 3.95-5.11 [facility] Comment on above: Performed By: #### F EBC, FERI #### [place] [address] [place], [place] [phone] Revenue Audit Clerk: Anand Tilley MD #### RETCT #### [facility] [address] [place] [address] Dr. [place], [place] [phone] Revenue Audit Clerk: Jazlyn Bhagat MD WBC (Bld) [#/Vol] 6.9 10*3/uL Normal 3.5-11.3 [facility] Comment on above: Performed By: #### F EBC, FERI #### [place] [address] [place], [place] 3386508 Revenue Audit Clerk: Anand Tilley MD #### RETCT #### [facility] [address] [place] [address] [place] [address] Revenue Audit Clerk: Jazlyn Bhagat MD EKG Rhythm Stripon [facility] Hepatic Function Panelon Albumin [Mass/Vol] 3.4 g/dL Low 3.5 - 5.2 g/dL [facility] Albumin/Globulin [Mass ratio] 1.5 {ratio} 1.0 - 2.5 [facility] ALP [Catalytic activity/Vol] 328 U/L High 35 - 104 U/L [facility] ALT [Catalytic activity/Vol] 27 U/L 10 - 35 U/L [facility] AST [Catalytic activity/Vol] 31 U/L 10 - 35 U/L [facility] Bilirubin [Mass/Vol] 0.3 mg/dL 0.00 - 1.20 mg/ dL [facility] Bilirubin.direct [Mass/Vol] mg/dL 0.00 - 0.30 mg/dL [facility] Bilirubin.indirect [Mass/Vol] Can not be calculated 0.0 - 1.0 mg/dL [facility] Protein [Mass/Vol] 5.6 g/dL Low 6.6 - 8.7 g/dL [facility] Liver Profileon 06-26-2025 Albumin [Mass/Vol] 3.4 g/dL Low 3.5-5.2 [facility] Comment on above: Performed By: #### F EBC, FERI #### [facility] [address] [place] [address] Revenue Audit Clerk: Anand Tilley MD #### RETCT #### [facility] [address] [place] [address] [place] [address] Revenue Audit Clerk: Jazlyn Bhagat MD Albumin/Glob Ratio 1.5 Normal 1.0-2.5 [facility] Comment on above: Performed By: #### F EBAshlee FERI #### [facility] [address] [place] [address] Revenue Audit Clerk: Anand Tilley MD #### RETCT #### [facility] [address] [place] [address] [place] [address] Revenue Audit Clerk: Jazlyn Bhagat MD Alkaline Phos 328 U/L High 35-104 [facility] Comment on above: Performed By: #### F EBAshlee, FERI #### [facility] [address] [place] [address] Revenue Audit Clerk: Anand Tilley MD #### RETCT #### [facility] [address] [place] [address] [place] [address] Revenue Audit Clerk: Jazlyn Bhagat MD ALT [Catalytic activity/Vol] 27 U/L Normal 10-35 [facility] Comment on above: Performed By: #### F EBC, FERI #### [address] [address] Revenue Audit Clerk: Anand Tilley MD #### RETCT #### [facility] [address] [place] [address] Revenue Audit Clerk: Jazlyn Bhagat MD AST [Catalytic activity/Vol] 31 U/L Normal 10-35 [facility] Comment on above: Performed By: #### F LUIS FERNANDO FERI #### [address] [address] Revenue Audit Clerk: Anand Tilley MD #### RETCT #### [facility] [address] [place] [address] Dr. [place] [phone] Revenue Audit Clerk: Jazlyn Bhagat MD Bilirubin [Mass/Vol] 0.3 mg/dL Normal 0.00-1.20 [facility] [place] Comment on above: Performed By: #### F LUIS FERNANDO FERI #### [address] [address] Revenue Audit Clerk: Anand Tilley MD #### RETCT #### [facility] [address] [place] [address] Dr. [place] [phone] Revenue Audit Clerk: Jazlyn Bhagat MD Bilirubin, Indirect Can not be calculated Normal 0.0-1.0 [facility] Comment on above: Performed By: #### F LUIS FERNANDO FERI #### [address] [address] Revenue Audit Clerk: Anand Tilley MD #### RETCT #### [facility] [address] [place] [address] [place] [address] Revenue Audit Clerk: Jazlyn Bhagat MD Bilirubin.indirect [Mass/Vol] mg/dL Normal 0.00-0.30 [facility] Comment on above: Performed By: #### F EBAshlee, FERI #### [address] [address] Revenue Audit Clerk: Anand Tilley MD #### RETCT #### [facility] [address] [place] [address] [place] [address] Revenue Audit Clerk: Jazlyn Bhagat MD Protein [Mass/Vol] 5.6 g/dL Low 6.6-8.7 [facility] Comment on above: Performed By: #### F LUIS FERNANDO FERI #### [facility] [address] [place], [place] [phone] Revenue Audit Clerk: Anand Tilley MD #### RETCT #### [facility] [address] [place] [address] [place] [address] Revenue Audit Clerk: Jazlyn Bhagat MD Magnesiumon 06-26-2025 Magnesium [Mass/Vol] 1.7 mg/dL 1.6 - 2.4 mg/dL [facility] Magnesium [Mass/Vol] 1.7 mg/dL Normal 1.6-2.4 [facility] [place] Comment on above: Performed By: #### F LUIS FERNANDO FERI #### [place] [address] [place], [place] 2943208 Revenue Audit Clerk: Anand Tilley MD #### RETCT #### [address] [place] [address] Revenue Audit Clerk: Jazlyn Bhagat MD No Panel Informationon 06-26 Interpretation and review of laboratory results Abnormal [facility] Phosphoruson 06-26-2025 Phosphate [Mass/Vol] 3.2 mg/dL 2.5 - 4.5 mg/dL [facility] Phosphorus, Inorg.on Phosphorus, Inorg. 3.2 mg/dL Normal 2.5-4.5 [facility] Comment on above: Performed By: #### F LUIS FERNANDO, FERI #### [facility] [address] [place], [place] [phone] Revenue Audit Clerk: Anand Tilley MD #### RETCT #### [facility] [address] [place] [address] [place] [address] Revenue Audit Clerk: Jazlyn Bhagat MD Basic Metabolic Panelon 07- Anion gap [Moles/Vol] 16 mmol/L 9 - 16 mmol/L [facility] Calcium [Mass/Vol] 7.1 mg/dL Low 8.6 - 10.4 mg/dL [facility] Chloride [Moles/Vol] 102 mmol/L 98 - 107 mmol/L [facility] CO2 [Moles/Vol] 19 mmol/L Low 20 - 31 mmol/L [facility] Creatinine [Mass/Vol] 3.7 mg/dL High 0.50 - 0.90 mg/dL [facility] Est, Glom Filt Rate 12 Low - PINF [facility] Comment on above: These results are not intended for use [...] following therapy that affects renal tubular secretion. Glucose [Mass/Vol] 87 mg/dL 74 - 99 mg/dL [facility] Interpretation and review of laboratory results Abnormal [facility] Potassium [Moles/Vol] 4.4 mmol/L 3.7 - 5.3 mmol/L [facility] Sodium [Moles/Vol] 137 mmol/L 136 - 145 mmol/L [facility] Urea nitrogen [Mass/Vol] 79 mg/dL High 8 - 23 mg/dL [facility] Urea nitrogen/Creatinine [Mass ratio] 21 mg/mg High 9 - 20 [facility] Basic Metabolic Profon 06-25 Anion gap [Moles/Vol] 16 mmol/L Normal - [facility] Comment on above: Performed By: #### T ROPI, CLARK, CDP, MG #### [facility] [address] [place] [address] Revenue Audit Clerk: Jazlyn Bhagat MD #### PTHNCA #### [place] [address] [place] [address] Revenue Audit Clerk: Anand Tilley MD BUN/CRE Ratio 21 High 9-20 [facility] Comment on above: Performed By: #### T ROPI, CLARK, CDP, MG #### [facility] [address] [place] [address] Dr. [place], [place] [phone] Revenue Audit Clerk: Jazlyn Bhagat MD #### PTHNCA #### [address] [address] Revenue Audit Clerk: Anand Tilley MD Calcium [Mass/Vol] 7.1 mg/dL Low 8.6-10.4 [facility] Comment on above: Performed By: #### T ROPI, CLARK, CDP, MG #### [address] [place] [phone] Revenue Audit Clerk: Jazlyn Bhagat MD #### PTHNCA #### [address] [address] Revenue Audit Clerk: Anand Tilley MD Chloride [Moles/Vol] 102 mmol/L Normal 98-107 [facility] [place] Comment on above: Performed By: #### T ROPI, CLARK, CDP, MG #### [facility] [address] [place] [address] [place] [phone] Revenue Audit Clerk: Jazlyn Bhagat MD #### PTHNCA #### [address] [address] Revenue Audit Clerk: Anand Tilley MD CO2 [Moles/Vol] 19 mmol/L Low 20-31 [facility] Comment on above: Performed By: #### T ROPI, CLARK, CDP, MG #### [facility] [address] [place] [address] Dr. [place], [place] [phone] Revenue Audit Clerk: Jazlyn Bhagat MD #### PTHNCA #### [place] [address] [place], [place] 9139808 Revenue Audit Clerk: Anand Tilley MD Creatinine [Mass/Vol] 3.7 mg/dL High 0.50-0.90 [facility] Comment on above: Performed By: #### T ROPI, CLARK, CDP, MG #### [facility] [address] [place] [address] Revenue Audit Clerk: Jazlyn Bhagat MD #### PTHNCA #### [address] [phone] Revenue Audit Clerk: Anadn Tilley MD GFR/1.73 sq M.predicted among non-blacks MDRD (S/P/Bld) [Vol rate/Area] 12 mL/min/{1.73_m2} Low >60 [facility] Comment on above: Result Comment: These results are not intended for [...] following therapy that affects renal tubular secretion. Performed By: #### T ROPI, CLARK, CDP, MG #### [facility] [address] [place] [address] [place] [address] Revenue Audit Clerk: Jazlyn Bhagat MD #### PTHNCA #### [place] [address] [place], [place] 3955108 Revenue Audit Clerk: Anand Tilley MD Glucose [Mass/Vol] 87 mg/dL Normal 74-99 [facility] Comment on above: Performed By: #### T ROPI, CLARK, CDP, MG #### [facility] [address] [place], [place] [phone] Revenue Audit Clerk: Jazlyn Bhagat MD #### PTHNCA #### [address] [phone] Revenue Audit Clerk: Anand Tilley MD Potassium [Moles/Vol] 4.4 mmol/L Normal 3.7-5.3 [facility] Comment on above: Performed By: #### T ROPI, CLARK, CDP, MG #### [facility] [address] [place] [address] Revenue Audit Clerk: Jazlyn Bhagat MD #### PTHNCA #### [place] [address] [place], [place] 2491308 Revenue Audit Clerk: Anand Tilley MD Sodium [Moles/Vol] 137 mmol/L Normal 136-145 [facility] Comment on above: Performed By: #### T ROPI, CLARK, CDP, MG #### [facility] [address] [place], [place] [address] [address] Revenue Audit Clerk: Jazlyn Bhagat MD #### PTHNCA #### [place] [address] [place], [place] 0972008 Revenue Audit Clerk: Anand Tilley MD Urea nitrogen [Mass/Vol] 79 mg/dL High 8-23 [facility] Comment on above: Performed By: #### T ROPI, CLARK, CDP, MG #### [facility] [address] [place], [place] [address] [address] Revenue Audit Clerk: Jazlyn Bhagat MD #### PTHNCA #### [place] [address] [place], [place] [phone] Revenue Audit Clerk: Anand Tilley MD CBC auto differentialon 06-02 Basophils (Bld) [#/Vol] [facility] Basophils/100 WBC (Bld) 0 % 0 - 2 % [facility] Eosinophils (Bld) [#/Vol] 0.13 10*3/uL [facility] Eosinophils/100 WBC (Bld) 2 % 1 - 4 % [facility] Erythrocyte distribution width (RBC) [Ratio] 13.8 % 11.8 - 14.4 % [facility] Hematocrit (Bld) [Volume fraction] 24.4 % Low 36.3 - 47.1 % [facility] Hemoglobin (Bld) [Mass/Vol] 8 g/dL Low 11.9 - 15.1 g/dL [facility] Immature granulocytes (Bld) [#/Vol] 0.04 10*3/uL [facility] Immature granulocytes/100 WBC (Bld) 1 % High 0 [facility] Interpretation and review of laboratory results Abnormal [facility] Lymphocytes/100 WBC (Bld) 12 % Low 24 - 43 % [facility] Lymphocytes/100 WBC (Bld) 0.69 % Low [facility] MCH (RBC) [Entitic mass] 29.9 pg 25.2 - 33.5 pg [facility] MCHC (RBC) [Mass/Vol] 32.8 g/dL 28.4 - 34.8 g/dL [facility] MCV (RBC) [Entitic vol] 91 fL 82.6 - 102.9 fL [facility] Monocytes/100 WBC (Bld) 13 % High 3 - 12 % [facility] Monocytes/100 WBC (Bld) 0.76 % [facility] Neutrophils/100 WBC (Bld) 72 % High 36 - 65 % [facility] Nucleated RBC/100 WBC (Bld) [Ratio] 0 % 0.0 per 100 WBC [facility] Platelet mean volume (Bld) [Entitic vol] 11 fL 8.1 - 13.5 fL [facility] Platelets (Bld) [#/Vol] 119 10*3/uL Low [facility] RBC (Bld) [#/Vol] 2.68 10*6/uL Low 3.95 - 5.11 m/uL [facility] Segmented neutrophils/100 WBC (Bld) 4.3 % [facility] WBC other (Bld) [#/Vol] 5.9 [facility] CBC with Diffon 06-25-2025 Abs. Basophil <0.03 Normal 0.00-0.20 [facility] Comment on above: Performed By: #### T ROPI, CLARK, CDP, MG #### [facility] [address] [place] [address] Dr. [place] [phone] Revenue Audit Clerk: Jazlyn Bhagat MD #### PTHNCA #### [address] [phone] Revenue Audit Clerk: Anand Tilley MD Abs.Imm.Granulocyte 0.04 k/uL Normal 0.00-0.30 [facility] Comment on above: Performed By: #### T ROPI, CLARK, CDP, MG #### [address] [place] [phone] Revenue Audit Clerk: Jazlyn Bhagat MD #### PTHNCA #### [place] [address] Revenue Audit Clerk: Anand Tilley MD Abs.Neutrophil (Seg) 4.30 k/uL Normal 1.50-8.10 [facility] [place] Comment on above: Performed By: #### T ROPI, CLARK, CDP, MG #### [address] [place] [phone] Revenue Audit Clerk: Jazlyn Bhagat MD #### PTHNCA #### [place] [address] Revenue Audit Clerk: Anand Tilley MD Basophils/100 WBC (Bld) 0 % Normal 0-2 [facility] Comment on above: Performed By: #### T ROPI, CLARK, CDP, MG #### [address] [place] [phone] Revenue Audit Clerk: Jazlyn Bhagat MD #### PTHNCA #### [address] [address] Revenue Audit Clerk: Anand Tilley MD Eosinophils (Bld) [#/Vol] 0.13 10*3/uL Normal 0.00-0.44 [facility] Comment on above: Performed By: #### T ROPI, CLARK, CDP, MG #### [facility] [address] [place] [address] [place] [address] Revenue Audit Clerk: Jazlyn Bhagat MD #### PTHNCA #### [address] [phone] Revenue Audit Clerk: Anand Tilley MD Eosinophils/100 WBC (Bld) 2 % Normal 1-4 [facility] Comment on above: Performed By: #### T ROPI, CLARK, CDP, MG #### [address] [place] [address] Revenue Audit Clerk: Jazlyn Bhagat MD #### PTHNCA #### [address] [phone] Revenue Audit Clerk: Anand Tilley MD Erythrocyte distribution width (RBC) [Ratio] 13.8 % Normal 11.8-14.4 [facility] Comment on above: Performed By: #### T ROPI, CLARK, CDP, MG #### [address] [place] [address] Revenue Audit Clerk: Jazlyn Bhagat MD #### PTHNCA #### [address] [phone] Revenue Audit Clerk: Anand Tilley MD Hematocrit (Bld) [Volume fraction] 24.4 % Low 36.3-47.1 [facility] Comment on above: Performed By: #### T ROPI, CLARK, CDP, MG #### [facility] [address] [place] [address] [place] [address] Revenue Audit Clerk: Jazlyn Bhagat MD #### PTHNCA #### [address] [phone] Revenue Audit Clerk: Anand Tilley MD Hemoglobin (Bld) [Mass/Vol] 8.0 g/dL Low 11.9-15.1 [facility] Comment on above: Performed By: #### T ROPI, CLARK, CDP, MG #### [facility] [address] [place] [address] Dr. [place] [phone] Revenue Audit Clerk: Jazlyn Bhagat MD #### PTHNCA #### [address] [phone] Revenue Audit Clerk: Anand Tilley MD Immature granulocytes/100 WBC (Bld) 1 % High 0 [facility] Comment on above: Performed By: #### T ROPI, CLARK, CDP, MG #### [address] [place] [phone] Revenue Audit Clerk: Jazlyn Bhagat MD #### PTHNCA #### [place] [address] Revenue Audit Clerk: Anand Tilley MD Lymphocytes (Bld) [#/Vol] 0.69 10*3/uL Low 1.10-3.70 [facility] Comment on above: Performed By: #### T ROPI, CLARK, CDP, MG #### [address] [place] [phone] Revenue Audit Clerk: Jazlyn Bhagat MD #### PTHNCA #### [place] [address] Revenue Audit Clerk: Anand Tilley MD Lymphocytes/100 WBC (Bld) 12 % Low 24-43 [facility] Comment on above: Performed By: #### T ROPI, CLARK, CDP, MG #### [address] [place] [phone] Revenue Audit Clerk: Jazlyn Bhagat MD #### PTHNCA #### [address] [address] Revenue Audit Clerk: Anand Tilley MD MCH (RBC) [Entitic mass] 29.9 pg Normal 25.2-33.5 [facility] Comment on above: Performed By: #### T ROPI, CLARK, CDP, MG #### [address] [place] [phone] Revenue Audit Clerk: Jazlyn Bhagat MD #### PTHNCA #### [place] [phone] Revenue Audit Clerk: Anand Tilley MD MCHC (RBC) [Mass/Vol] 32.8 g/dL Normal 28.4-34.8 [facility] Comment on above: Performed By: #### T ROPI, CLARK, CDP, MG #### [address] [place] [phone] Revenue Audit Clerk: Jazlyn Bhagat MD #### PTHNCA #### [place] [address] Revenue Audit Clerk: Anand Tilley MD MCV (RBC) [Entitic vol] 91.0 fL Normal 82.6-102.9 [facility] Comment on above: Performed By: #### T ROPI, CLARK, CDP, MG #### [address] [place] [phone] Revenue Audit Clerk: Jazlyn Bhagat MD #### PTHNCA #### [place] [address] Revenue Audit Clerk: Anand Tilley MD Monocytes (Bld) [#/Vol] 0.76 10*3/uL Normal 0.10-1.20 [facility] Comment on above: Performed By: #### T ROPI, CLARK, CDP, MG #### [address] [place] [phone] Revenue Audit Clerk: Jazlyn Bhagat MD #### PTHNCA #### [place] [address] Revenue Audit Clerk: Anand Tilley MD Monocytes/100 WBC (Bld) 13 % High 3-12 [facility] Comment on above: Performed By: #### T ROPI, CLARK, CDP, MG #### [facility] [address] [place] [address] Dr. [place], [place] [phone] Revenue Audit Clerk: Jazlyn Bhagat MD #### PTHNCA #### [address] [phone] Revenue Audit Clerk: Anand Tilley MD Neutrophil (Seg) 72 % High 36-65 [facility] Comment on above: Performed By: #### T ROPI, CLARK, CDP, MG #### [facility] [address] [place] [address] Dr. [place], [place] [phone] Revenue Audit Clerk: Jazlyn Bhagat MD #### PTHNCA #### [address] [phone] Revenue Audit Clerk: Anand Tilley MD NRBC Automated 0.0 per 100 WBC Normal 0.0 [facility] Comment on above: Performed By: #### T ROPI, CLARK, CDP, MG #### [address] [place], [place] [phone] Revenue Audit Clerk: Jazlyn Bhagat MD #### PTHNCA #### [address] [address] Revenue Audit Clerk: Anand Tilley MD Platelet mean volume (Bld) [Entitic vol] 11.0 fL Normal 8.1-13.5 [facility] Comment on above: Performed By: #### T ROPI, CLARK, CDP, MG #### [address] [place] [address] Revenue Audit Clerk: Jazlyn Bhagat MD #### PTHNCA #### [address] [phone] Revenue Audit Clerk: Anand Tilley MD Platelets (Bld) [#/Vol] 119 10*3/uL Low 138-453 [facility] Comment on above: Performed By: #### T ROPI, CLARK, CDP, MG #### [facility] [address] [place] [address] Dr. [place] [phone] Revenue Audit Clerk: Jazlyn Bhagat MD #### PTHNCA #### [address] [address] Revenue Audit Clerk: Anand Tilley MD RBC (Bld) [#/Vol] 2.68 10*6/uL Low 3.95-5.11 [facility] Comment on above: Performed By: #### T ROPI, CLARK, CDP, MG #### [facility] [address] [place] [address] Dr. [place] [phone] Revenue Audit Clerk: Jazlyn Bhagat MD #### PTHNCA #### [address] [address] Revenue Audit Clerk: Anand Tilley MD WBC (Bld) [#/Vol] 5.9 10*3/uL Normal 3.5-11.3 [facility] Comment on above: Performed By: #### T ROPI, CLARK, CDP, MG #### [facility] [address] [place] [address] [place] [phone] Revenue Audit Clerk: Jazlyn Bhagat MD #### PTHNCA #### [place] [address] Revenue Audit Clerk: Anand Tilley MD Celiac Reflex Panelon 2024 Gliadin IgA IA Qn (S) 0.5 U/mL NINF - 7.0 U/mL [facility] Comment on above: CELIAC INTERPRETATION <7.0 Negative 7.0-10.0 Equivocal >10.0 Positive units: U/mL Gliadin IgG IA Qn (S) U/mL NINF - 7.0 U/mL [facility] Comment on above: CELIAC INTERPRETATION <7.0 Negative 7.0-10.0 Equivocal >10.0 Positive units: U/mL IgA [Mass/Vol] 266 mg/dL 70 - 400 mg/dL [facility] Tissue Transglutaminase (tTG) Antibody (IgG) U/mL NINF - 7.0 U/mL [facility] Comment on above: CELIAC INTERPRETATION <7.0 Negative 7.0-10.0 Equivocal >10.0 Positive units: U/mL tTG IgA IA Qn (S) 0.3 U/mL [facility] - 7.0 U/mL [facility] Comment on above: CELIAC INTERPRETATION <7.0 Negative 7.0-10.0 Equivocal >10.0 Positive units: U/mL [facility] Gliadin Deam Pep IgA 0.5 U/mL Normal <7.0 [facility] Comment on above: Result Comment: CELIAC INTERPRETATION <7.0 Negative 7.0-10.0 Equivocal >10.0 Positive units: U/mL Performed By: #### T ROPI, CLARK, CDP, MG #### [address] [place] [address] Revenue Audit Clerk: Jazlyn Bhagat MD #### PTHNCA #### [address] [address] Revenue Audit Clerk: Anand Tilley MD Gliadin Deam Pep IgG <0.4 Normal <7.0 [facility] Comment on above: Result Comment: CELIAC INTERPRETATION <7.0 Negative 7.0-10.0 Equivocal >10.0 Positive units: U/mL Performed By: #### T ROPI, CLARK, CDP, MG #### [address] [place] [address] Revenue Audit Clerk: Jazlyn Bhagat MD #### PTHNCA #### [address] [address] Revenue Audit Clerk: Anand Tilley MD Tiss Transglutam IgA 0.3 U/mL Normal <7.0 [facility] Comment on above: Result Comment: CELIAC INTERPRETATION <7.0 Negative 7.0-10.0 Equivocal >10.0 Positive units: U/mL Performed By: #### T ROPI, CLARK, CDP, MG #### [address] [place] [address] Revenue Audit Clerk: Jazlyn Bhagat MD #### PTHNCA #### [address] [id number] Revenue Audit Clerk: Anand Tilley MD Tiss Transglutam IgG <0.6 Normal <7.0 [facility] Comment on above: Result Comment: CELIAC INTERPRETATION <7.0 Negative 7.0-10.0 Equivocal >10.0 Positive units: U/mL Performed By: #### T ROPI, CLARK, CDP, MG #### [address] [place] [address] Revenue Audit Clerk: Jazlyn Bhagat MD #### PTHNCA #### [address] [address] Revenue Audit Clerk: Anand Tilley MD EKG Rhythm Stripon 5 [facility] Fecal Fat, Randomon 06-25-20 25 Fecal Neutral Fat Normal Normal Normal [facility] Comment on above: Performed By: #### F EBC, FERI #### [address] [address] Revenue Audit Clerk: Anand Tilley MD #### RETCT #### [address] [place] [address] Revenue Audit Clerk: Jazlyn Bhagat MD Fecal Split Fat Increased Abnormal Normal [facility] Comment on above: Result Comment: (NOT E) INTERPRETIVE INFORMATION: Fecal Fat Qualitative Neutral fats include the monoglycerides, diglycerides, and triglycerides while split fats are the free fatty acids that are liberated from them. Impaired synthesis or secretion of pancreatic enzymes or bile may cause an increase in neutral fats while an increase in split fats suggests impaired absorption of nutrients. Performed By: [facility] [address] [place] [address] Tenant Relations Coordinator: Jc Fine MD, PhD CLIA Number: [id number] Performed By: #### F EBC, FERI #### [facility] [address] [place], [place] [phone] Revenue Audit Clerk: Anand Tilley MD #### RETCT #### [facility] [address] [place] [address] Revenue Audit Clerk: Jazlyn Bhagat MD Fecal fat, qualitativeon Fat Qualitative Split Stool Increased Abnormal Normal [facility] Comment on above: (NOTE) INTERPRETIVE INFORMATION: Fecal Fat Qualitative Neutral fats include the monoglycerides, diglycerides, and triglycerides while split fats are the free fatty acids that are liberated from them. Impaired synthesis or secretion of pancreatic enzymes or bile may cause an increase in neutral fats while an increase in split fats suggests impaired absorption of nutrients. Performed By: [facility] [address] [place] [address] Tenant Relations Coordinator: Jc Fine MD, PhD CLIA Number: [id number] Fecal Neutral Fat Normal Normal [facility] Interpretation and review of laboratory results Abnormal [facility] Albuminon 06-24-2025 Albumin [Mass/Vol] 3.6 g/dL 3.5 - 5.2 g/dL [facility] Albumin [Mass/Vol] 3.6 g/dL Normal 3.5-5.2 [facility] Comment on above: Performed By: #### T ROPI, CLARK, CDP, MG #### [facility] [address] [place] [address] Revenue Audit Clerk: Jazlyn Bhagat MD #### PTHNCA #### [facility] [address] [place], [place] [phone] Revenue Audit Clerk: Anand Tilley MD Basic Metabolic Panelon - Anion gap [Moles/Vol] 19 mmol/L High 9 - 16 mmol/L [facility] Calcium [Mass/Vol] 6.4 mg/dL Low 8.6 - 10.4 mg/dL [facility] Chloride [Moles/Vol] 102 mmol/L 98 - 107 mmol/L [facility] CO2 [Moles/Vol] 16 mmol/L Low 20 - 31 mmol/L [facility] Creatinine [Mass/Vol] 4.0 mg/dL High 0.50 - 0.90 mg/dL [facility] Est, Glom Filt Rate 11 Low - PINF [facility] Comment on above: These results are not intended for use [...] following therapy that affects renal tubular secretion. Glucose [Mass/Vol] 106 mg/dL High 74 - 99 mg/dL [facility] Potassium [Moles/Vol] 4.6 mmol/L 3.7 - 5.3 mmol/L [facility] Sodium [Moles/Vol] 137 mmol/L 136 - 145 mmol/L [facility] Urea nitrogen [Mass/Vol] 81 mg/dL High 8 - 23 mg/dL [facility] Urea nitrogen/Creatinine [Mass ratio] 20 mg/mg - 20 [facility] Basic Metabolic Profon 06-24 Anion gap [Moles/Vol] 19 mmol/L High -16 [facility] Comment on above: Performed By: #### T ROPI, CLARK, CDP, MG #### [facility] [address] [place] [address] Revenue Audit Clerk: Jazlyn Bhagat MD #### PTHNCA #### [address] [place] [address] Revenue Audit Clerk: Anand Tilley MD BUN/CRE Ratio 20 Normal - [facility] Comment on above: Performed By: #### T ROPI, CLARK, CDP, MG #### [facility] [address] [place], [place] [phone] Revenue Audit Clerk: Jazlyn Bhagat MD #### PTHNCA #### [address] [phone] Revenue Audit Clerk: Anand Tilley MD Calcium [Mass/Vol] 6.4 mg/dL Low 8.6-10.4 [facility] Comment on above: Performed By: #### T ROPI, CLARK, CDP, MG #### [facility] [address] [place] [address] Revenue Audit Clerk: Jazlyn Bhagat MD #### PTHNCA #### [address] [phone] Revenue Audit Clerk: Anand Tilley MD Chloride [Moles/Vol] 102 mmol/L Normal 98-107 [facility] Comment on above: Performed By: #### T ROPI, CLARK, CDP, MG #### [facility] [address] [place], [place] [phone] Revenue Audit Clerk: Jazlyn Bhagat MD #### PTHNCA #### [address] [phone] Revenue Audit Clerk: Anand Tilley MD CO2 [Moles/Vol] 16 mmol/L Low 20-31 [facility] Comment on above: Performed By: #### T ROPI, CLARK, CDP, MG #### [facility] [address] [place], [place] 8[address]2583 Revenue Audit Clerk: Jazlyn Bhagat MD #### PTHNCA #### [address] [phone] Revenue Audit Clerk: Anand Tilley MD Creatinine [Mass/Vol] 4.0 mg/dL High 0.50-0.90 [facility] Comment on above: Performed By: #### T ROPI, CLARK, CDP, MG #### [facility] [address] [place] [address] Revenue Audit Clerk: Jazlyn Bhagat MD #### PTHNCA #### [address] [phone] Revenue Audit Clerk: Anand Tilley MD GFR/1.73 sq M.predicted among non-blacks MDRD (S/P/Bld) [Vol rate/Area] 11 mL/min/{1.73_m2} Low >60 [facility] Comment on above: Result Comment: These results are not intended for [...] following therapy that affects renal tubular secretion. Performed By: #### T ROPI, CLARK, CDP, MG #### [address] [place], [place] 4643983 Revenue Audit Clerk: Jazlyn Bhagat MD #### PTHNCA #### [address] [phone] Revenue Audit Clerk: Anand Tilley MD Glucose [Mass/Vol] 106 mg/dL High 74-99 [facility] Comment on above: Performed By: #### T ROPI, CLARK, CDP, MG #### [address] [place], [place] 616[address]83 Revenue Audit Clerk: Jazlyn Bhagat MD #### PTHNCA #### [address] [phone] Revenue Audit Clerk: Anand Tilley MD Potassium [Moles/Vol] 4.6 mmol/L Normal 3.7-5.3 [facility] Comment on above: Performed By: #### T ROPI, CLARK, CDP, MG #### [facility] [address] [place] [address] Revenue Audit Clerk: Jazlyn Bhagat MD #### PTHNCA #### [facility] [address] [place], [place] [phone] Revenue Audit Clerk: Anand Tilley MD Sodium [Moles/Vol] 137 mmol/L Normal 136-145 [facility] Comment on above: Performed By: #### T ROPI, CLARK, CDP, MG #### [facility] [address] [place] [address] Revenue Audit Clerk: Jazlyn Bhagat MD #### PTHNCA #### [address] [place], [place] 1121508 Revenue Audit Clerk: Anand Tilley MD Urea nitrogen [Mass/Vol] 81 mg/dL High 8-23 [facility] Comment on above: Performed By: #### T ROPI, CLARK, CDP, MG #### [facility] [address] [place] [address] Revenue Audit Clerk: Jazlyn Bhagat MD #### PTHNCA #### [facility] [address] [place], [place] [phone] Revenue Audit Clerk: Anand Tilley MD CBC auto differentialon 06-02 Basophils (Bld) [#/Vol] [facility] Basophils/100 WBC (Bld) 0 % 0 - 2 % [facility] Eosinophils (Bld) [#/Vol] 0.09 10*3/uL [facility] Eosinophils/100 WBC (Bld) 1 % 1 - 4 % [facility] Erythrocyte distribution width (RBC) [Ratio] 13.9 % 11.8 - 14.4 % [facility] Hematocrit (Bld) [Volume fraction] 26.3 % Low 36.3 - 47.1 % [facility] Hemoglobin (Bld) [Mass/Vol] 8.5 g/dL Low 11.9 - 15.1 g/dL [facility] Immature granulocytes (Bld) [#/Vol] 0.04 10*3/uL [facility] Immature granulocytes/100 WBC (Bld) 1 % High 0 [facility] Interpretation and review of laboratory results Abnormal [facility] Lymphocytes/100 WBC (Bld) 9 % Low 24 - 43 % [facility] Lymphocytes/100 WBC (Bld) 0.64 % Low [facility] MCH (RBC) [Entitic mass] 29.7 pg 25.2 - 33.5 pg [facility] MCHC (RBC) [Mass/Vol] 32.3 g/dL 28.4 - 34.8 g/dL [facility] MCV (RBC) [Entitic vol] 92 fL 82.6 - 102.9 fL [facility] Monocytes/100 WBC (Bld) 10 % 3 - 12 % [facility] Monocytes/100 WBC (Bld) 0.7 % [facility] Neutrophils/100 WBC (Bld) 79 % High 36 - 65 % [facility] Nucleated RBC/100 WBC (Bld) [Ratio] 0 % 0.0 per 100 WBC [facility] Platelet mean volume (Bld) [Entitic vol] 10.9 fL 8.1 - 13.5 fL [facility] Platelets (Bld) [#/Vol] 130 10*3/uL Low [facility] RBC (Bld) [#/Vol] 2.86 10*6/uL Low 3.95 - 5.11 m/uL [facility] Segmented neutrophils/100 WBC (Bld) 5.36 % [facility] WBC other (Bld) [#/Vol] 6.8 [facility] CBC with Diffon 06-24-2025 Abs. Basophil <0.03 Normal 0.00-0.20 [facility] Comment on above: Performed By: #### T ROPI, CLARK, CDP, MG #### [facility] [address] [place] [address] Revenue Audit Clerk: Jazlyn Bhagat MD #### PTHNCA #### [address] [phone] Revenue Audit Clerk: Anand Tilley MD Abs.Imm.Granulocyte 0.04 k/uL Normal 0.00-0.30 [facility] Comment on above: Performed By: #### T ROPI, CLARK, CDP, MG #### [address] [place] [address] Revenue Audit Clerk: Jazlyn Bhagat MD #### PTHNCA #### [place] [address] Revenue Audit Clerk: Anand Tilley MD Abs.Neutrophil (Seg) 5.36 k/uL Normal 1.50-8.10 [facility] Comment on above: Performed By: #### T ROPI, CLARK, CDP, MG #### [address] [place] [address] Revenue Audit Clerk: Jazlyn Bhagat MD #### PTHNCA #### [place] [address] Revenue Audit Clerk: Anand Tilley MD Basophils/100 WBC (Bld) 0 % Normal 0-2 [facility] Comment on above: Performed By: #### T ROPI, CLARK, CDP, MG #### [address] [place] [address] Revenue Audit Clerk: Jazlyn Bhagat MD #### PTHNCA #### [place] [address] Revenue Audit Clerk: Anand Tilley MD Eosinophils (Bld) [#/Vol] 0.09 10*3/uL Normal 0.00-0.44 [facility] Comment on above: Performed By: #### T ROPI, CLARK, CDP, MG #### [address] [place] [phone] Revenue Audit Clerk: Jazlyn Bhagat MD #### PTHNCA #### [address] [id number] Revenue Audit Clerk: Anand Tilley MD Eosinophils/100 WBC (Bld) 1 % Normal 1-4 [facility] Comment on above: Performed By: #### T ROPI, CLARK, CDP, MG #### [address] [place] [phone] Revenue Audit Clerk: Jazlyn Bhagat MD #### PTHNCA #### [address] [phone] Revenue Audit Clerk: Anand Tilley MD Erythrocyte distribution width (RBC) [Ratio] 13.9 % Normal 11.8-14.4 [facility] Comment on above: Performed By: #### T ROPI, CLARK, CDP, MG #### [address] [place] [phone] Revenue Audit Clerk: Jazlyn Bhagat MD #### PTHNCA #### [address] [phone] Revenue Audit Clerk: Anand Tilley MD Hematocrit (Bld) [Volume fraction] 26.3 % Low 36.3-47.1 [facility] Comment on above: Performed By: #### T ROPI, CLARK, CDP, MG #### [address] [place] [phone] Revenue Audit Clerk: Jazlyn Bhagat MD #### PTHNCA #### [address] [phone] Revenue Audit Clerk: Anand Tilley MD Hemoglobin (Bld) [Mass/Vol] 8.5 g/dL Low 11.9-15.1 [facility] Comment on above: Performed By: #### T ROPI, CLARK, CDP, MG #### [address] [place] [address] Revenue Audit Clerk: Jazlyn Bhagat MD #### PTHNCA #### [address] [address] Revenue Audit Clerk: Anand Tilley MD Immature granulocytes/100 WBC (Bld) 1 % High 0 [facility] Comment on above: Performed By: #### T ROPI, CLARK, CDP, MG #### [address] [place] [phone] ( Revenue Audit Clerk: Jazlyn Bhagat MD #### PTHNCA #### [place] [address] Revenue Audit Clerk: Anand Tilley MD Lymphocytes (Bld) [#/Vol] 0.64 10*3/uL Low 1.10-3.70 [facility] Comment on above: Performed By: #### T ROPI, CLARK, CDP, MG #### [address] [place] [phone] ( Revenue Audit Clerk: Jazlyn Bhagat MD #### PTHNCA #### [place] [address] Revenue Audit Clerk: Anand Tilley MD Lymphocytes/100 WBC (Bld) 9 % Low 24-43 [facility] Comment on above: Performed By: #### T ROPI, CLARK, CDP, MG #### [address] [place] [phone] Revenue Audit Clerk: Jazlyn Bhagat MD #### PTHNCA #### [place] [address] Revenue Audit Clerk: Anand Tilley MD MCH (RBC) [Entitic mass] 29.7 pg Normal 25.2-33.5 [facility] Comment on above: Performed By: #### T ROPI, CLARK, CDP, MG #### [address] [place] [address] Revenue Audit Clerk: Jazlyn Bhagat MD #### PTHNCA #### [place] [phone] Revenue Audit Clerk: Anand Tilley MD MCHC (RBC) [Mass/Vol] 32.3 g/dL Normal 28.4-34.8 [facility] Comment on above: Performed By: #### T ROPI, CLARK, CDP, MG #### [address] [place] [phone] Revenue Audit Clerk: Jazlyn Bhagat MD #### PTHNCA #### [place] [address] Revenue Audit Clerk: Anand Tilley MD MCV (RBC) [Entitic vol] 92.0 fL Normal 82.6-102.9 [facility] Comment on above: Performed By: #### T ROPI, CLARK, CDP, MG #### [address] [place] [phone] Revenue Audit Clerk: Jazlyn Bhagat MD #### PTHNCA #### [place] [address] Revenue Audit Clerk: Anand Tilley MD Monocytes (Bld) [#/Vol] 0.70 10*3/uL Normal 0.10-1.20 [facility] Comment on above: Performed By: #### T ROPI, CLARK, CDP, MG #### [address] [place] [address] Revenue Audit Clerk: Jazlyn Bhagat MD #### PTHNCA #### [place] [address] Revenue Audit Clerk: Anand Tilley MD Monocytes/100 WBC (Bld) 10 % Normal 3-12 [facility] Comment on above: Performed By: #### T ROPI, CLARK, CDP, MG #### [address] [place] [address] Revenue Audit Clerk: Jazlyn Bhagat MD #### PTHNCA #### [address] [place], [place] [phone] Revenue Audit Clerk: Anand Tilley MD Neutrophil (Seg) 79 % High 36-65 [facility] Comment on above: Performed By: #### T ROPI, CLARK, CDP, MG #### [facility] [address] [place] [address] [place] [address] Revenue Audit Clerk: Jazlyn Bhagat MD #### PTHNCA #### [place] [phone] Revenue Audit Clerk: Anand Tilley MD NRBC Automated 0.0 per 100 WBC Normal 0.0 [facility] Comment on above: Performed By: #### T ROPI, CLARK, CDP, MG #### [address] [place] [address] Revenue Audit Clerk: Jazlyn Bhagat MD #### PTHNCA #### [address] [phone] Revenue Audit Clerk: Anand Tilley MD Platelet mean volume (Bld) [Entitic vol] 10.9 fL Normal 8.1-13.5 [facility] Comment on above: Performed By: #### T ROPI, CLARK, CDP, MG #### [facility] [address] [place] [address] [place] [address] Revenue Audit Clerk: Jazlyn Bhagat MD #### PTHNCA #### [place] [phone] Revenue Audit Clerk: Anand Tilley MD Platelets (Bld) [#/Vol] 130 10*3/uL Low 138-453 [facility] Comment on above: Performed By: #### T ROPI, CLARK, CDP, MG #### [address] [place], [place] [phone] Revenue Audit Clerk: Jazlyn Bhagat MD #### PTHNCA #### [address] [place] [address] Revenue Audit Clerk: Anand Tilley MD RBC (Bld) [#/Vol] 2.86 10*6/uL Low 3.95-5.11 [facility] Comment on above: Performed By: #### T ROPI, CLARK, CDP, MG #### [address] [place], [place] [phone] Revenue Audit Clerk: Jazlyn Bhagat MD #### PTHNCA #### [address] [address] Revenue Audit Clerk: Anand Tilley MD WBC (Bld) [#/Vol] 6.8 10*3/uL Normal 3.5-11.3 [facility] Comment on above: Performed By: #### T ROPI, CLARK, CDP, MG #### [address] [place] [phone] Revenue Audit Clerk: Jazlyn Bhagat MD #### PTHNCA #### [address] [address] Revenue Audit Clerk: Anand Tilley MD Calcium, Ionicon Calcium [Moles/Vol] 0.88 mmol/L Low 1.13-1.33 [facility] Comment on above: Performed By: #### T ROPI, CLARK, CDP, MG #### [address] [place] [address] Revenue Audit Clerk: Jazlyn Bhagat MD #### PTHNCA #### [address] [place] [address] Revenue Audit Clerk: Anand Tilley MD Calcium, Ionizedon Calcium.ionized (Bld) [Moles/Vol] 0.88 mmol/L Low 1.13 - 1.33 mmol/L [facility] Interpretation and review of laboratory results Abnormal [facility] Celiac Reflex Panelon 2024 IgA [Mass/Vol] 266 mg/dL Normal 70-400 [facility] Comment on above: Performed By: #### T ROPI, CLARK, CDP, MG #### [facility] [address] [place] [address] Revenue Audit Clerk: Jazlyn Bhagat MD #### PTHNCA #### [facility] [employer] [address] [place], [place] [phone] Revenue Audit Clerk: Anand Tilley MD EKG Rhythm Stripon [facility] Gastrointestinal Panel, Mole cularon 06-24-2025 Campylobacter sp DNA ULICES+probe Nom (Unsp spec) NEGATIVE: No Campylobacter spp. (jejuni or coli) DNA Detected NEGATIVE: No Campylobacter spp. (jejuni or coli) DNA Detecte [facility] E. coli enterotoxigenic eltA+estB genes ULICES+probe Ql (Stl) NEGATIVE: No Enterotoxigenic E. coli (ETEC) Heat-labile and heat-stable (LT/ST) DNA Detected NEGATIVE: No Enterotoxigenic E. coli (ETEC) Heat-labile and [facility] P. shigelloides DNA ULICES+probe Ql (Stl) Negative NEGATIVE: No Plesionomas shigelloides DNA Detected [facility] Salmonella sp DNA ULICES+probe Ql (Unsp spec) Negative NEGATIVE: No Salmonella spp. DNA Detected [facility] Shiga toxin stx gene ULICES+probe Nom (Unsp spec) Negative NEGATIVE: No Shiga toxin-producing gene(s) Detected [facility] Shigella sp DNA ULICES+probe Ql (Unsp spec) Negative NEGATIVE: No Shigella spp. / EIEC DNA Detected [facility] Specimen Description .FECES [facility] V. cholerae+parahaemoly ticus rfbL+trkH+tnaA genes ULICES+probe Ql (Stl) NEGATIVE: No Vibrio (V. vulnificus, V, parahaemolyticus and V. cholerae) DNA Detected NEGATIVE: No Vibrio (V. vulnificus, V, parahaemolyticus and [facility] Y. enterocolitica recN gene ULICES+probe Ql (Stl) Negative NEGATIVE: No Yersinia enterocolitica DNA Detected [facility] Giardia antigenon 06-24-2025 G. lamblia Ag IA Ql (Stl) Negative NEGATIVE [facility] Comment on above: Giardia Antigen Assa y Source .FECES [facility] Specimen Description .FECES [facility] Magnesiumon 06-24-2025 Magnesium [Mass/Vol] 1.5 mg/dL Low 1.6 - 2.4 mg/dL [facility] Magnesium [Mass/Vol] 1.5 mg/dL Low 1.6-2.4 [facility] Comment on above: Performed By: #### T ROPI, CLARK, CDP, MG #### [address] [place] [address] Revenue Audit Clerk: Jazlyn Bhagat MD #### PTHNCA #### [address] [address] Revenue Audit Clerk: Anand Tilley MD No Panel Informationon 06-24 Interpretation and review of laboratory results Abnormal [facility] O+P,Giardia Ag Onlyon 2024 O+P,Giardia Ag Negative Normal NEG [facility] Comment on above: Result Comment: Giar blanca Antigen Assay Performed By: #### T SETHI, CLARK, CDP, MG #### [address] [place] [address] Revenue Audit Clerk: Jazlyn Bhagat MD #### PTHNCA #### [address] [address] Revenue Audit Clerk: Anand Tilley MD Stool PCR Batteryon 06-24-20 Campylobacter sp PCR NEGATIVE: No Campylobacter spp. (jejuni or coli) DNA Detected Normal [facility] Comment on above: Performed By: #### T ROPI, CLARK, CDP, MG #### [facility] [address] [place] [address] [place] [address] Revenue Audit Clerk: Jazlyn Bhagat MD #### PTHNCA #### [address] [address] Revenue Audit Clerk: Anand Tilley MD E coli enterotox PCR NEGATIVE: No Enterotoxigenic E. coli (ETEC) Heat-labile and heat-stable (LT/ST) Normal EECNEG [facility] Comment on above: Result Comment: DNA Detected Performed By: #### T ROPI, CLARK, CDP, MG #### [address] [place], [place] 6336583 Revenue Audit Clerk: Jazlyn Bhagat MD #### PTHNCA #### [address] [address] Revenue Audit Clerk: Anand Tilley MD Plesiomonas sp PCR Negative [facility] Comment on above: Performed By: #### T ROPI, CLARK, CDP, MG #### [address] [place], [place] [phone] Revenue Audit Clerk: Jazlyn Bhagat MD #### PTHNCA #### [address] [address] Revenue Audit Clerk: Anand Tilley MD Salmonella sp PCR Negative Normal SALNEG [facility] Comment on above: Performed By: #### T ROPI, CLARK, CDP, MG #### [address] [place], [place] 7753783 Revenue Audit Clerk: Jazlyn Bhagat MD #### PTHNCA #### [address] [address] Revenue Audit Clerk: Anand Tilley MD Shigatoxin gene PCR Negative Normal STXNEG [facility] Comment on above: Performed By: #### T ROPI, CLARK, CDP, MG #### [facility] [address] [place], [place] 1096483 Revenue Audit Clerk: Jazlyn Bhagat MD #### PTHNCA #### [address] [address] Revenue Audit Clerk: Anand Tilley MD Shigella sp PCR Negative Normal SHINEG [facility] Comment on above: Performed By: #### T ROPI, CLARK, CDP, MG #### [facility] [address] [place], [place] [id number] Revenue Audit Clerk: Jazlyn Bhagat MD #### PTHNCA #### [address] [address] Revenue Audit Clerk: Anand Tilley MD Vibrio sp PCR NEGATIVE: No Vibrio (V. vulnificus, V, parahaemolyticus and V. cholerae) DNA Normal VIBNEG [facility] Comment on above: Result Comment: Dete cted Performed By: #### T ROPI, CLARK, CDP, MG #### [address] [place], [place] [phone] Revenue Audit Clerk: Jazlyn Bhagat MD #### PTHNCA #### [address] [address] Revenue Audit Clerk: Anand Tilley MD Yersinia gene PCR Negative Normal YERNEG [facility] Comment on above: Performed By: #### T ROPI, CLARK, CDP, MG #### [facility] [address] [place], [place] 3387183 Revenue Audit Clerk: Jazlyn Bhagat MD #### PTHNCA #### [address] [address] Revenue Audit Clerk: Anand Tilley MD TYPE AND SCREENon 06-24-2025 ABO/Rh Negative [facility] Arm Band Number [id number] [facility] Blood Bank Blood Product Expiration Date [id number] [facility] Blood Bank ISBT Product Blood Type 9500 [facility] Blood Bank Sample Expiration 06/26/2025,2359 [facility] Bank Unit Type and Rh Negative [facility] Blood product unit ID (Dose) [#] [id number] [facility] Component Leukocyte Reduced Red Cell [facility] Crossmatch Result COMPATIBLE [facility] Dispense Status Blood Bank TRANSFUSED [facility] Product Code Blood Bank [id number] [facility] Transfusion Status OK TO TRANSFUSE B on [facility] Unit Divison 0 [facility] Unit Issue Date/Time [id number] [facility] Blood Occult Stool Screen #1 on 06-23-2025 Date, Stool #1 7 [facility] Comment on above: 23 25 Hemoglobin.gastroint estinal spec 1 Ql (Stl) Positive Abnormal NEGATIVE [facility] Interpretation and review of laboratory results Abnormal [facility] Time, Stool #1 1040 [facility] C diff Ag + Toxinon 06-23-20 25 C diff Ag + Toxin Negative Normal NEG [facility] Comment on above: Result Comment: No C . difficile antigen and Toxin Detected. Performed By: #### T ROPI, CLARK, CDP, MG #### [facility] [address] [place] [address] Revenue Audit Clerk: Jazlyn Bhagat MD #### PTHNCA #### [address] [place] [address] Revenue Audit Clerk: Anand Tilley MD CBC auto differentialon 06-02 Basophils (Bld) [#/Vol] 0 10*3/uL [facility] Basophils/100 WBC (Bld) 0 % 0 - 2 % [facility] Eosinophils (Bld) [#/Vol] 0.06 10*3/uL [facility] Eosinophils/100 WBC (Bld) 1 % 1 - 4 % [facility] Erythrocyte distribution width (RBC) [Ratio] 13.3 % 11.8 - 14.4 % [facility] Hematocrit (Bld) [Volume fraction] 21 % Low 36.3 - 47.1 % [facility] Hemoglobin (Bld) [Mass/Vol] 6.7 g/dL Critically low 11.9 - 15.1 g/dL [facility] Immature granulocytes (Bld) [#/Vol] 0.06 10*3/uL [facility] Immature granulocytes/100 WBC (Bld) 1 % High 0 [facility] Interpretation and review of laboratory results Abnormal [facility] Lymphocytes/100 WBC (Bld) 13 % Low 24 - 43 % [facility] Lymphocytes/100 WBC (Bld) 0.73 % Low [facility] MCH (RBC) [Entitic mass] 29.8 pg 25.2 - 33.5 pg [facility] MCHC (RBC) [Mass/Vol] 31.9 g/dL 28.4 - 34.8 g/dL [facility] MCV (RBC) [Entitic vol] 93.3 fL 82.6 - 102.9 fL [facility] Monocytes/100 WBC (Bld) 12 % 3 - 12 % [facility] Monocytes/100 WBC (Bld) 0.67 % [facility] Morphology Frederick (Bld) [Interp] Normal [facility] Neutrophils/100 WBC (Bld) 73 % High 36 - 65 % [facility] Nucleated RBC/100 WBC (Bld) [Ratio] 0 % 0.0 per 100 WBC [facility] Platelet mean volume (Bld) [Entitic vol] 11.3 fL 8.1 - 13.5 fL [facility] Platelets (Bld) [#/Vol] 106 10*3/uL Low [facility] RBC (Bld) [#/Vol] 2.25 10*6/uL Low 3.95 - 5.11 m/uL [facility] Segmented neutrophils/100 WBC (Bld) 4.08 % [facility] WBC other (Bld) [#/Vol] 5.6 [facility] CBC with Diffon 06-23-2025 Abs. Basophil 0.00 k/uL Normal 0.0-0.2 [facility] Comment on above: Performed By: #### T ROPI, CLARK, CDP, MG #### [facility] [address] [place] [address] Revenue Audit Clerk: Jazlyn Bhagat MD #### PTHNCA #### [address] [phone] Revenue Audit Clerk: Anand Tilley MD Abs.Imm.Granulocyte 0.06 k/uL Normal 0.00-0.30 [facility] Comment on above: Performed By: #### T ROPI, CLARK, CDP, MG #### [facility] [address] [place] [address] Dr. [place] [phone] Revenue Audit Clerk: Jazlyn Bhagat MD #### PTHNCA #### [address] [phone] Revenue Audit Clerk: Anand Tilley MD Abs.Neutrophil (Seg) 4.08 k/uL Normal 1.50-8.10 [facility] Comment on above: Performed By: #### T ROPI, CLARK, CDP, MG #### [facility] [address] [place] [address] Dr. [place] [phone] Revenue Audit Clerk: Jazlyn Bhagat MD #### PTHNCA #### [address] [phone] Revenue Audit Clerk: Anand Tilley MD Basophils/100 WBC (Bld) 0 % Normal 0-2 [facility] Comment on above: Performed By: #### T ROPI, CLARK, CDP, MG #### [facility] [address] [place] [address] [place] [address] Revenue Audit Clerk: Jazlyn Bhagat MD #### PTHNCA #### [address] [address] Revenue Audit Clerk: Anand Tilley MD Eosinophils (Bld) [#/Vol] 0.06 10*3/uL Normal 0.00-0.44 [facility] Comment on above: Performed By: #### T ROPI, CLARK, CDP, MG #### [facility] [address] [place] [address] [place] [address] Revenue Audit Clerk: Jazlyn Bhagat MD #### PTHNCA #### [place] [address] Revenue Audit Clerk: Anand Tilley MD Eosinophils/100 WBC (Bld) 1 % Normal 1-4 [facility] Comment on above: Performed By: #### T ROPI, CLARK, CDP, MG #### [facility] [address] [place] [address] [place] [address] Revenue Audit Clerk: Jazlyn Bhagat MD #### PTHNCA #### [place] [address] Revenue Audit Clerk: Anand Tilley MD Immature granulocytes/100 WBC (Bld) 1 % High 0 [facility] Comment on above: Performed By: #### T ROPI, CLARK, CDP, MG #### [address] [place] [address] Revenue Audit Clerk: Jazlyn Bhagat MD #### PTHNCA #### [place] [address] Revenue Audit Clerk: Anand Tilley MD Lymphocytes (Bld) [#/Vol] 0.73 10*3/uL Low 1.10-3.70 [facility] Comment on above: Performed By: #### T ROPI, CLARK, CDP, MG #### [address] [place] [phone] Revenue Audit Clerk: Jazlyn Bhagat MD #### PTHNCA #### [address] [place] [address] Revenue Audit Clerk: Anand Tilley MD Lymphocytes/100 WBC (Bld) 13 % Low 24-43 [facility] Comment on above: Performed By: #### T ROPI, CLARK, CDP, MG #### [facility] [address] [place] [address] Dr. [place], [place] [phone] Revenue Audit Clerk: Jazlyn Bhagat MD #### PTHNCA #### [address] [address] Revenue Audit Clerk: Anand Tilley MD Monocytes (Bld) [#/Vol] 0.67 10*3/uL Normal 0.10-1.20 [facility] Comment on above: Performed By: #### T ROPI, CLARK, CDP, MG #### [address] [place] [phone] Revenue Audit Clerk: Jazlyn Bhagat MD #### PTHNCA #### [address] [address] Revenue Audit Clerk: Anand Tilley MD Monocytes/100 WBC (Bld) 12 % Normal 3-12 [facility] Comment on above: Performed By: #### T ROPI, CLARK, CDP, MG #### [address] [place] [phone] Revenue Audit Clerk: Jazlyn Bhagat MD #### PTHNCA #### [address] [address] Revenue Audit Clerk: Anand Tilley MD Morphology Frederick (Bld) [Interp] Normal Normal [facility] Comment on above: Performed By: #### T ROPI, CLARK, CDP, MG #### [address] [place], [place] 7494783 Revenue Audit Clerk: Jazlyn Bhagat MD #### PTHNCA #### [address] [place], [place] 0637308 Revenue Audit Clerk: Anand Tilley MD Neutrophil (Seg) 73 % High 36-65 [facility] Comment on above: Performed By: #### T ROPI, CLARK, CDP, MG #### [facility] [address] [place] [address] Dr. [place], [place] 8782983 Revenue Audit Clerk: Jazlyn Bhagat MD #### PTHNCA #### [address] [phone] Revenue Audit Clerk: Anand Tilley MD Erythrocyte distribution width (RBC) [Ratio] 13.3 % Normal 11.8-14.4 [facility] Comment on above: Performed By: #### T ROPI, CLARK, CDP, MG #### [address] [place] [phone] Revenue Audit Clerk: Jazlyn Bhagat MD #### PTHNCA #### [address] [phone] Revenue Audit Clerk: Anand Tilley MD Hematocrit (Bld) [Volume fraction] 21.0 % Low 36.3-47.1 [facility] Comment on above: Performed By: #### T ROPI, CLARK, CDP, MG #### [address] [place] [phone] Revenue Audit Clerk: Jazlyn Bhagat MD #### PTHNCA #### [address] [phone] Revenue Audit Clerk: Anand Tilley MD Hemoglobin (Bld) [Mass/Vol] 6.7 g/dL Critically low 11.9-15.1 [facility] Comment on above: Performed By: #### T ROPI, CLARK, CDP, MG #### [address] [place] [address] Revenue Audit Clerk: Jazlyn Bhagat MD #### PTHNCA #### [address] [place], [place] 9592908 Revenue Audit Clerk: Anand Tilley MD MCH (RBC) [Entitic mass] 29.8 pg Normal 25.2-33.5 [facility] Comment on above: Performed By: #### T ROPI, CLARK, CDP, MG #### [address] [place] [phone] Revenue Audit Clerk: Jazlyn Bhagat MD #### PTHNCA #### [place] [phone] Revenue Audit Clerk: Anand Tilley MD MCHC (RBC) [Mass/Vol] 31.9 g/dL Normal 28.4-34.8 [facility] Comment on above: Performed By: #### T ROPI, CLARK, CDP, MG #### [address] [place] [phone] Revenue Audit Clerk: Jazlyn Bhagat MD #### PTHNCA #### [place] [address] Revenue Audit Clerk: Anand Tilley MD MCV (RBC) [Entitic vol] 93.3 fL Normal 82.6-102.9 [facility] Comment on above: Performed By: #### T ROPI, CLARK, CDP, MG #### [address] [place] [phone] Revenue Audit Clerk: Jazlyn Bhagat MD #### PTHNCA #### [place] [phone] Revenue Audit Clerk: Anand Tilley MD NRBC Automated 0.0 per 100 WBC Normal 0.0 [facility] Comment on above: Performed By: #### T ROPI, CLARK, CDP, MG #### [address] [place] [phone] Revenue Audit Clerk: Jazlyn Bhagat MD #### PTHNCA #### [place] [phone] Revenue Audit Clerk: Anand Tilley MD Platelet mean volume (Bld) [Entitic vol] 11.3 fL Normal 8.1-13.5 [facility] Comment on above: Performed By: #### T ROPI, CLARK, CDP, MG #### [address] [place] [phone] ( Revenue Audit Clerk: Jazlyn Bhagat MD #### PTHNCA #### [place] [address] Revenue Audit Clerk: Anand Tilley MD Platelets (Bld) [#/Vol] 106 10*3/uL Low 138-453 [facility] Comment on above: Performed By: #### T ROPI, CLARK, CDP, MG #### [address] [place] [address] Revenue Audit Clerk: Jazlyn Bhagat MD #### PTHNCA #### [place] [address] Revenue Audit Clerk: Anand Tilley MD RBC (Bld) [#/Vol] 2.25 10*6/uL Low 3.95-5.11 [facility] Comment on above: Performed By: #### T ROPI, CLARK, CDP, MG #### [address] [place] [phone] Revenue Audit Clerk: Jazlyn Bhagat MD #### PTHNCA #### [place] [address] Revenue Audit Clerk: Anand Tilley MD WBC (Bld) [#/Vol] 5.6 10*3/uL Normal 3.5-11.3 [facility] Comment on above: Performed By: #### T ROPI, CLARK, CDP, MG #### [address] [place] [address] Revenue Audit Clerk: Jazlyn Bhagat MD #### PTHNCA #### [address] [phone] Revenue Audit Clerk: Anand Tilley MD Chloride, Random Urineon Chloride (U) [Moles/Vol] 79 mmol/L [facility] Comment on above: No normal range esta blished. Chloride,Random Uron 025 Chloride [Moles/Vol] 79 mmol/L Normal [facility] Comment on above: Result Comment: No n ormal range established. Performed By: #### F TASHI GOULD #### [address] [phone] Revenue Audit Clerk: Anand Tilley MD #### RETCT #### [address] [place] [address] Revenue Audit Clerk: Jazlyn Bhagat MD Clostridium Difficile Toxin/ Antigenon 06-23-2025 C. difficile glutamate dehydrogenase and toxins A+B IA.rapid Ql (Stl) Negative NEGATIVE [facility] Comment on above: No C. difficile anti gen and Toxin Detected. Specimen Description .FECES [facility] Comp Metabolic Pr/rfx MGon 0 06-23-2025 Albumin [Mass/Vol] 3.4 g/dL Low 3.5-5.2 [facility] Comment on above: Performed By: #### T ROPI, CLARK, CDP, MG #### [address] [place] [address] Revenue Audit Clerk: Jazlyn Bhagat MD #### PTHNCA #### [address] [phone] Revenue Audit Clerk: Anand Tilley MD Albumin/Glob Ratio 1.6 Normal 1.0-2.5 [facility] Comment on above: Performed By: #### T ROPI, CLARK, CDP, MG #### [facility] [address] [place], [place] [phone] Revenue Audit Clerk: Jazlyn Bhagat MD #### PTHNCA #### [address] [address] Revenue Audit Clerk: Anand Tilley MD Alkaline Phos 325 U/L High 35-104 [facility] Comment on above: Performed By: #### T ROPI, CLARK, CDP, MG #### [facility] [address] [place], [place] 4825583 Revenue Audit Clerk: Jazlyn Bhagat MD #### PTHNCA #### [address] [phone] Revenue Audit Clerk: Anand Tilley MD ALT [Catalytic activity/Vol] 25 U/L Normal 10-35 [facility] Comment on above: Performed By: #### T ROPI, CLARK, CDP, MG #### [address] [place], [place] 2999183 Revenue Audit Clerk: Jazlyn Bhagat MD #### PTHNCA #### [address] [address] Revenue Audit Clerk: Aannd Tilley MD Anion gap [Moles/Vol] 16 mmol/L Normal 9-16 [facility] Comment on above: Performed By: #### T ROPI, CLARK, CDP, MG #### [address] [place], [place] 3853783 Revenue Audit Clerk: Jazlyn Bhagat MD #### PTHNCA #### [address] [address] Revenue Audit Clerk: Anand Tilley MD AST [Catalytic activity/Vol] 25 U/L Normal 10-35 [facility] Comment on above: Performed By: #### T ROPI, CLARK, CDP, MG #### [facility] [address] [place] [address] Revenue Audit Clerk: Jazlyn Bhagat MD #### PTHNCA #### [address] [place], [place] 4289108 Revenue Audit Clerk: Anand Tilley MD Bilirubin [Mass/Vol] 0.3 mg/dL Normal 0.00-1.20 [facility] Comment on above: Performed By: #### T ROPI, CLARK, CDP, MG #### [address] [place] [address] Revenue Audit Clerk: Jazlyn Bhagat MD #### PTHNCA #### [address] [phone] Revenue Audit Clerk: Anand Tilley MD BUN/CRE Ratio 18 Normal 9-20 [facility] Comment on above: Performed By: #### T ROPI, CLARK, CDP, MG #### [address] [place] [address] Revenue Audit Clerk: Jazlyn Bhagat MD #### PTHNCA #### [address] [phone] Revenue Audit Clerk: Anand Tilley MD Calcium [Mass/Vol] 6.4 mg/dL Low 8.6-10.4 [facility] Comment on above: Performed By: #### T ROPI, CLARK, CDP, MG #### [address] [place] [address] Revenue Audit Clerk: Jazlyn Bhagat MD #### PTHNCA #### [address] [phone] Revenue Audit Clerk: Anand Tilley MD Chloride [Moles/Vol] 104 mmol/L Normal 98-107 [facility] [place] Comment on above: Performed By: #### T ROPI, CLARK, CDP, MG #### [address] [place] [address] Revenue Audit Clerk: Jazlyn Bhagat MD #### PTHNCA #### [address] [place], [place] 7436608 Revenue Audit Clerk: Anand Tilley MD CO2 [Moles/Vol] 14 mmol/L Low 20-31 [facility] Comment on above: Performed By: #### T ROPI, CLARK, CDP, MG #### [facility] [address] [place] [address] [place] [phone] Revenue Audit Clerk: Jazlyn Bhagat MD #### PTHNCA #### [address] [phone] Revenue Audit Clerk: Anand Tilley MD Creatinine [Mass/Vol] 4.4 mg/dL High 0.50-0.90 [facility] Comment on above: Performed By: #### T ROPI, CLARK, CDP, MG #### [address] [place] [address] Revenue Audit Clerk: Jazlyn Bhagat MD #### PTHNCA #### [address] [phone] Revenue Audit Clerk: Anand Tilley MD GFR/1.73 sq M.predicted among non-blacks MDRD (S/P/Bld) [Vol rate/Area] 10 mL/min/{1.73_m2} Low >60 [facility] Comment on above: Result Comment: These results are not intended for [...] following therapy that affects renal tubular secretion. Performed By: #### T ROPI, CLARK, CDP, MG #### [facility] [address] [place] [address] Revenue Audit Clerk: Jazlyn Bhagat MD #### PTHNCA #### [address] [place], [place] [phone] Revenue Audit Clerk: Anand Tilley MD Glucose [Mass/Vol] 104 mg/dL High 74-99 [facility] Comment on above: Performed By: #### T ROPI, CLARK, CDP, MG #### [address] [place] [phone] Revenue Audit Clerk: Jazlyn Bhagat MD #### PTHNCA #### [address] 1924608 Revenue Audit Clerk: Anand Tilley MD Potassium [Moles/Vol] 4.8 mmol/L Normal 3.7-5.3 [facility] Comment on above: Performed By: #### T ROPI, CLARK, CDP, MG #### [address] [place] [phone] Revenue Audit Clerk: Jazlyn Bhagat MD #### PTHNCA #### [address] [phone] Revenue Audit Clerk: Anand Tilley MD Protein [Mass/Vol] 5.4 g/dL Low 6.6-8.7 [facility] Comment on above: Performed By: #### T ROPI, CLARK, CDP, MG #### [address] [place] [phone] Revenue Audit Clerk: Jazlyn Bhagat MD #### PTHNCA #### [address] [phone] Revenue Audit Clerk: Anand Tilley MD Sodium [Moles/Vol] 134 mmol/L Low 136-145 [facility] Comment on above: Performed By: #### T ROPI, CLARK, CDP, MG #### [address] [place] [address] Revenue Audit Clerk: Jazlyn Bhagat MD #### PTHNCA #### [facility] [address] [place], [place] [phone] Revenue Audit Clerk: Anand Tilley MD Urea nitrogen [Mass/Vol] 79 mg/dL High 07-24 [facility] Comment on above: Performed By: #### T ROPI, CLARK, CDP, MG #### [facility] [address] [place] [address] Revenue Audit Clerk: Jazlyn Bhagat MD #### PTHNCA #### [facility] [address] [place], [place] [phone] Revenue Audit Clerk: Anand Tilley MD Comprehensive Metabolic Pane l w/ Reflex to MGon 06-23-2025 Albumin [Mass/Vol] 3.4 g/dL Low 3.5 - 5.2 g/dL [facility] Albumin/Globulin [Mass ratio] 1.6 {ratio} 1.0 - 2.5 [facility] ALP [Catalytic activity/Vol] 325 U/L High 35 - 104 U/L [facility] ALT [Catalytic activity/Vol] 25 U/L 10 - 35 U/L [facility] Anion gap [Moles/Vol] 16 mmol/L 9 - 16 mmol/L [facility] AST [Catalytic activity/Vol] 25 U/L 10 - 35 U/L [facility] Bilirubin [Mass/Vol] 0.3 mg/dL 0.00 - 1.20 mg/ dL [facility] Calcium [Mass/Vol] 6.4 mg/dL Low 8.6 - 10.4 mg/dL [facility] Chloride [Moles/Vol] 104 mmol/L 98 - 107 mmol/L [facility] CO2 [Moles/Vol] 14 mmol/L Low 20 - 31 mmol/L [facility] Creatinine [Mass/Vol] 4.4 mg/dL High 0.50 - 0.90 mg/dL [facility] Est, Glom Filt Rate 10 Low - PINF [facility] Comment on above: These results are not intended for use [...] following therapy that affects renal tubular secretion. Glucose [Mass/Vol] 104 mg/dL High 74 - 99 mg/dL [facility] Potassium [Moles/Vol] 4.8 mmol/L 3.7 - 5.3 mmol/L [facility] Protein [Mass/Vol] 5.4 g/dL Low 6.6 - 8.7 g/dL [facility] Sodium [Moles/Vol] 134 mmol/L Low 136 - 145 mmol/L [facility] Urea nitrogen [Mass/Vol] 79 mg/dL High 8 - 23 mg/dL [facility] Urea nitrogen/Creatinine [Mass ratio] 18 mg/mg 9 - 20 [facility] EKG Rhythm Stripon [facility] Ferritinon 06-23-2025 Ferritin [Mass/Vol] 365 ng/mL Normal [facility] Comment on above: No reference range e stablished for this age/gender. Result Comment: No r eference range established for this age/gender. Performed By: #### F TASHI GOULD #### [facility] [employer] [address] [place] [address] Revenue Audit Clerk: Anand Tilley MD #### RETCT #### [facility] [address] [place] [address] Revenue Audit Clerk: Jazlyn Bhagat MD Hemoglobin and Hematocriton 06-23-2025 Hematocrit (Bld) [Volume fraction] 26.5 % Low 36.3 - 47.1 % [facility] Hemoglobin (Bld) [Mass/Vol] 8.7 g/dL Low 11.9 - 15.1 g/dL [facility] Interpretation and review of laboratory results Abnormal [facility] Hgb/Hcton 06-23-2025 Hematocrit (Bld) [Volume fraction] 26.5 % Low 36.3-47.1 [facility] Comment on above: Performed By: #### H H #### [facility] [address] [place], [place] [phone] Revenue Audit Clerk: Jazlyn Bhagat MD Hemoglobin (Bld) [Mass/Vol] 8.7 g/dL Low 11.9-15.1 [facility] Comment on above: Performed By: #### H H #### [facility] [address] [place] [phone] Revenue Audit Clerk: Jazlyn Bhagat MD Iron Binding Cap.on 06-23-20 25 % Fe Saturation 35 % Normal 20-55 [facility] Comment on above: Performed By: #### F EBC, FERI #### [address] [address] Revenue Audit Clerk: Anand Tilley MD #### RETCT #### [facility] [address] [place] [phone] Revenue Audit Clerk: Jazlyn Bhagat MD Iron [Mass/Vol] 70 ug/dL Normal 37-145 [facility] Comment on above: Performed By: #### F EBC, FERI #### [address] [address] Revenue Audit Clerk: Anand Tilley MD #### RETCT #### [facility] [address] [place] [address] Revenue Audit Clerk: Jazlyn Bhagat MD Total Fe Binding Cap 199 ug/dL Low 250-450 [facility] Comment on above: Performed By: #### F EBC, FERI #### [address] [address] Revenue Audit Clerk: Anand Tilley MD #### RETCT #### [facility] [address] [place] [address] [place] [address] Revenue Audit Clerk: Jazlyn Bhagat MD Unbound Fe Bind Cap 129 ug/dL Normal 112-347 [facility] Comment on above: Performed By: #### F EBC, FERI #### [facility] [address] [place], [place] [phone] Revenue Audit Clerk: Anand Tilley MD #### RETCT #### [facility] [address] [place] [address] Dr. [place], [place] 1933683 Revenue Audit Clerk: Jazlyn Bhagat MD Iron and TIBCon 06-23-2025 Interpretation and review of laboratory results Abnormal [facility] Iron binding capacity [Mass/Vol] 199 ug/dL Low 250 - 450 ug/dL [facility] Iron saturation [Mass fraction] 35 % 20 - 55 % [facility] UIBC 129 ug/dL 112 - 347 ug/dL [facility] Magnesiumon 06-23-2025 Magnesium [Mass/Vol] 1.6 mg/dL 1.6 - 2.4 mg/dL [facility] Magnesium [Mass/Vol] 1.6 mg/dL Normal 1.6-2.4 [facility] [place] Comment on above: Performed By: #### T ROPI, CLARK, CDP, MG #### [address] [place] [address] Revenue Audit Clerk: Jazlyn Bhagat MD #### PTHNCA #### [facility] [address] [place], [place] [phone] Revenue Audit Clerk: Anand Tilley MD No Panel Informationon 06-23 [facility] Interpretation and review of laboratory results Abnormal [facility] Occ Bld, Fecal Scrnon 2024 Occult Blood 1 Positive Abnormal [facility] Comment on above: Performed By: #### T ROPI, CLARK, CDP, MG #### [facility] [address] [place], [place] [phone] Revenue Audit Clerk: Jazlyn Bhagat MD #### PTHNCA #### [facility] [address] [place], [place] [phone] Revenue Audit Clerk: Anand Tilley MD Specimen 1 Date 7 [facility] Comment on above: Result Comment: Performed By: #### T ROPI, CLARK, CDP, MG #### [facility] [address] [place] [address] Dr. [place], [place] [phone] Revenue Audit Clerk: Jazlyn Bhagat MD #### PTHNCA #### [address] [phone] Revenue Audit Clerk: Anand Tilley MD Specimen 1 Time 1040 [facility] Comment on above: Performed By: #### T ROPI, CLARK, CDP, MG #### [address] [place], [place] [phone] Revenue Audit Clerk: Jazlyn Bhagat MD #### PTHNCA #### [place] [address] [place] [address] Revenue Audit Clerk: Anand Tilley MD Phosphoruson 06-23-2025 Phosphate [Mass/Vol] 4.9 mg/dL High 2.5 - 4.5 mg/dL [facility] Phosphorus, Inorg.on 025 Phosphorus, Inorg. 4.9 mg/dL High 2.5-4.5 [facility] Comment on above: Performed By: #### T ROPI, CLARK, CDP, MG #### [facility] [address] [place] [address] [place] [address] Revenue Audit Clerk: Jazlyn Bhagat MD #### PTHNCA #### [facility] [address] [place] [address] Revenue Audit Clerk: Anand Tilley MD Retic Counton 06-23-2025 Absolute Retic 0.029 M/uL Low 0.030-0.080 [facility] Comment on above: Performed By: #### F EBC, FERI #### [facility] [address] [place] [address] Revenue Audit Clerk: Anand Tilley MD #### RETCT #### [facility] [address] [place] [address] Dr. [place], [place] [phone] Revenue Audit Clerk: Jazlyn Bhagat MD IRF 10.9 % Normal 2.7-18.3 [facility] Comment on above: Performed By: #### F EBC, FERI #### [address] [address] Revenue Audit Clerk: Anand Tilley MD #### RETCT #### [facility] [address] [place] [address] Dr. [place] [phone] Revenue Audit Clerk: Jazlyn Bhagat MD Retic Count 1.3 % Normal 0.5-1.9 [facility] Comment on above: Performed By: #### F EBC, FERI #### [address] [address] Revenue Audit Clerk: Anand Tilley MD #### RETCT #### [address] [place] [phone] Revenue Audit Clerk: Jazlyn Bhagat MD Retic Hemoglobin 32.6 pg Normal 28.2-35.7 [facility] Comment on above: Performed By: #### F EBC, FERI #### [address] [address] Revenue Audit Clerk: Anand Tilley MD #### RETCT #### [facility] [address] [place] [address] Dr. [place], [place] [phone] Revenue Audit Clerk: Jazlyn Bhagat MD Reticulocyteson 06-23-2025 Immature reticulocytes/Total reticulocytes (Bld) 10.9 % 2.7 - 18.3 % [facility] Interpretation and review of laboratory results Abnormal [facility] Retic Hemoglobin 32.6 pg 28.2 - 35.7 pg [facility] Reticulocytes (Bld) [#/Vol] 0.029 10*3/uL Low [facility] Reticulocytes/100 RBC (Bld) 1.3 % 0.5 - 1.9 % [facility] Sodium, Random Uron 06-23-20 25 Sodium (U) [Moles/Vol] 83 mmol/L Normal [facility] Comment on above: Result Comment: No n ormal range established. Performed By: #### F EBC, FERI #### [facility] [address] [place] [address] Revenue Audit Clerk: Anand Tilley MD #### RETCT #### [facility] [address] [place] [address] [place] [address] Revenue Audit Clerk: Jazlyn Bhagat MD Sodium, urine, randomon 06-02 Sodium (U) [Moles/Vol] 83 mmol/L [facility] Comment on above: No normal range esta blished. Type + Screenon 06-23-2025 Type + Screen Sample Expiration 06/26/2025,2359 Arm Band Number [id number] ABO/Rh(D) O NEGATIVE Antibody Screen NEGATIVE Unit Number [id number] Blood Component Type Leukocyte Reduced Red Cell Unit Division 00 Status of Unit TRANSFUSED Transfusion Status OK TO TRANSFUSE Crossmatch Result COMPATIBLE Normal [facility] Comment on above: Performed By: #### T ROPI, CLARK, CDP, MG #### [facility] [address] [place] [address] Revenue Audit Clerk: Jazlyn Bhagat MD #### PTHNCA #### [address] [address] Revenue Audit Clerk: Anand Tilley MD Kidneyon 06-23-2025 1. Interval resolution of moderate right-sided hydronephrosis. 2. Stable left kidney simple cysts. [facility] CONSOLIDATED EXAM: RETROPERITONEAL ULTRASOUND OF THE KIDNEYS AND [...] hydronephrosis. BLADDER: Unremarkable appearance of the bladder. [facility] Lucius Brown MD - 06/23/2025 EXAM: RETROPERITONEAL ULTRASOUND OF [...] hydronephrosis. 2. Stable left kidney simple cysts. [employer] [facility] US KidneyOrdered By: Lucius Salas on 06-23-2025 [facility] [employer] [facility] Work Phone: US RENAL COMPLETEon 06-23-20 US RENAL COMPLETE EXAM: RETROPERITONEAL ULTRASOUND OF THE KIDNEYS AND [...] hydronephrosis. 2. Stable left kidney simple cysts. Interpreted by: Lucius Salas MD Signed by: Lucius Salas MD 06/23/25 Final result Normal [facility] Vitamin D 25 Hydroxyon 06-23 25-hydroxyvitamin D3 [Mass/Vol] 23.1 ng/mL Low 30.0 - 100.0 ng/mL [facility] Comment on above: Reference Range: Vitamin D status Range Deficiency <20 ng/mL Mild Deficiency 20-30 ng/mL Sufficiency 30-100 ng/mL Toxicity >100 ng/mL Interpretation and review of laboratory results Abnormal [facility] Vitamin D 25 OHon 06-23-2025 Vitamin D 25 OH 23.1 ng/mL Low 30.0-100.0 [facility] Comment on above: Result Comment: Reference Range: Vitamin D status Range Deficiency <20 ng/mL Mild Deficiency 20-30 ng/mL Sufficiency 30-100 ng/mL Toxicity >100 ng/mL Performed By: #### T ROPI, CLARK, CDP, MG #### [facility] [address] [place] [address] Revenue Audit Clerk: Jazlyn Bhagat MD #### PTHNCA #### [facility] [employer] [facility] [place] [address] Revenue Audit Clerk: Anand Tilley MD Amylaseon 06-22-2025 Amylase [Catalytic activity/Vol] 32 U/L 28 - 100 U/L [facility] Amylase [Catalytic activity/Vol] 32 U/L Normal 28-100 [facility] Comment on above: Performed By: #### F TASHI GOULD #### [facility] [address] [place] [address] Revenue Audit Clerk: Anand Tilley MD #### JORGE #### [facility] [address] [place] [address] Revenue Audit Clerk: Jazlyn Bhagat MD Basic Metabolic Panelon 07-2 Anion gap [Moles/Vol] 18 mmol/L High 9 - 16 mmol/L [facility] [employer] Calcium [Mass/Vol] 5.6 mg/dL Critically low 8.6 - 10.4 mg /dL [facility] [employer] Chloride [Moles/Vol] 103 mmol/L 98 - 107 mmol/L [facility] CO2 [Moles/Vol] 12 mmol/L Low 20 - 31 mmol/L [facility] [employer] [facility] Creatinine [Mass/Vol] 4.6 mg/dL High 0.50 - 0.90 mg/dL [facility] [employer] Est, Glom Filt Rate 9 Low - PINF [facility] Comment on above: These results are not intended for use [...] following therapy that affects renal tubular secretion. Glucose [Mass/Vol] 177 mg/dL High 74 - 99 mg/dL [facility] Potassium [Moles/Vol] 5 mmol/L 3.7 - 5.3 mmol/L [facility] Sodium [Moles/Vol] 133 mmol/L Low 136 - 145 mmol/L [facility] Urea nitrogen [Mass/Vol] 69 mg/dL High 8 - 23 mg/dL [facility] Hospital[facility] [employer] Urea nitrogen/Creatinine [Mass ratio] 15 mg/mg 9 - 20 [facility] Basic Metabolic Profon 06-22 Anion gap [Moles/Vol] 18 mmol/L High 9-16 [facility] Comment on above: Performed By: #### P THSLAVA, FERI, VD25, FEBC #### [address] [address] Revenue Audit Clerk: Anand Tilley MD #### CLARK, BMP, HH #### [address] [place], [place] [phone] Revenue Audit Clerk: Jazlyn Bhagat MD BUN/CRE Ratio 15 Normal -20 [facility] Comment on above: Performed By: #### P JEREMY, NOÉI, VD25, FEBC #### [address] [phone] Revenue Audit Clerk: Anand Tilley MD #### CLARK, BMP, HH #### [address] [place], [place] 845[address]83 Revenue Audit Clerk: Jazlyn Bhagat MD Calcium [Mass/Vol] 5.6 mg/dL Critically low 8.6-10.4 [facility] Comment on above: Performed By: #### P JEREMY, FERI, VD25, FEBC #### [address] [phone] Revenue Audit Clerk: Anand Tilley MD #### CLARK, BMP, HH #### [address] [place] [address] Revenue Audit Clerk: Jazlyn Bhagat MD Chloride [Moles/Vol] 103 mmol/L Normal 98-107 [facility] [place] Comment on above: Performed By: #### P THNCA, FERI, VD25, FEBC #### [address] [phone] Revenue Audit Clerk: Anand Tilley MD #### CLARK, BMP, HH #### [facility] [address] [place], [place] [phone] Revenue Audit Clerk: Jazlyn Bhagat MD CO2 [Moles/Vol] 12 mmol/L Low 20-31 [facility] Comment on above: Performed By: #### P THNCA, FERI, VD25, FEBC #### [address] [place], [place] 9870208 Revenue Audit Clerk: Anand Tilley MD #### CLARK, BMP, HH #### [facility] [address] [place], [place] [phone] Revenue Audit Clerk: Jazlyn Bhagat MD Creatinine [Mass/Vol] 4.6 mg/dL High 0.50-0.90 [facility] Comment on above: Performed By: #### P THNCA, FERI, VD25, FEBC #### [address] [phone] Revenue Audit Clerk: Anand Tilley MD #### CLARK, BMP, HH #### [facility] [address] [place] [address] Revenue Audit Clerk: Jazlyn Bhagat MD GFR/1.73 sq M.predicted among non-blacks MDRD (S/P/Bld) [Vol rate/Area] 9 mL/min/{1.73_m2} Low >60 [facility] Comment on above: Result Comment: These results are not intended for [...] following therapy that affects renal tubular secretion. Performed By: #### P THNCA, FERI, VD25, FEBC #### [address] [place], [place] 8390008 Revenue Audit Clerk: Anand Tilley MD #### CLARK, BMP, HH #### [facility] [address] [place], [place] [phone] Revenue Audit Clerk: Jazlyn Bhagat MD Glucose [Mass/Vol] 177 mg/dL High 74-99 [facility] Comment on above: Performed By: #### P THNCA, FERI, VD25, FEBC #### [address] [address] Revenue Audit Clerk: Anand Tilley MD #### CLARK, BMP, HH #### [facility] [address] [place], [place] [phone] Revenue Audit Clerk: Jazlyn Bhagat MD Potassium [Moles/Vol] 5.0 mmol/L Normal 3.7-5.3 [facility] Comment on above: Performed By: #### P THNCA, FERI, VD25, FEBC #### [address] [address] Revenue Audit Clerk: Anand Tilley MD #### CLARK, BMP, HH #### [address] [place], [place] 4042383 Revenue Audit Clerk: Jazlyn Bhagat MD Sodium [Moles/Vol] 133 mmol/L Low 136-145 [facility] Comment on above: Performed By: #### P THNCA, FERI, VD25, FEBC #### [address] [address] Revenue Audit Clerk: Anand Tilley MD #### CLARK, BMP, HH #### [facility] [address] [place] [address] Dr. [place], [place] [phone] Revenue Audit Clerk: Jazlyn Bhagat MD Urea nitrogen [Mass/Vol] 69 mg/dL High 8-23 [facility] Comment on above: Performed By: #### P THNCA, FERI, VD25, FEBC #### [address] [address] Revenue Audit Clerk: Anand Tilley MD #### CLARK, BMP, HH #### [facility] [address] [place] [address] Revenue Audit Clerk: Jazlyn Bhagat MD C diff Ag + Toxinon 06-22-20 Specimen Description .FECES Normal [facility] Comment on above: Performed By: #### T ROPI, CLARK, CDP, MG #### [facility] [address] [place] [address] Revenue Audit Clerk: Jazlyn Bhagat MD #### PTHNCA #### [facility] [address] [place] [address] Revenue Audit Clerk: Anand Tilley MD CBC with Auto Differentialon 06-22-2025 Basophils (Bld) [#/Vol] [facility] Basophils/100 WBC (Bld) 0 % 0 - 2 % [facility] Eosinophils (Bld) [#/Vol] 0.06 10*3/uL [facility] Eosinophils/100 WBC (Bld) 1 % 1 - 4 % [facility] Erythrocyte distribution width (RBC) [Ratio] 13.5 % 11.8 - 14.4 % [facility] Hematocrit (Bld) [Volume fraction] 24.2 % Low 36.3 - 47.1 % [facility] Hemoglobin (Bld) [Mass/Vol] 7.7 g/dL Low 11.9 - 15.1 g/dL [facility] Immature granulocytes (Bld) [#/Vol] 0.05 10*3/uL [facility] Immature granulocytes/100 WBC (Bld) 1 % High 0 [facility] Interpretation and review of laboratory results Abnormal [facility] Lymphocytes/100 WBC (Bld) 12 % Low 24 - 43 % [facility] Lymphocytes/100 WBC (Bld) 0.76 % Low [facility] MCH (RBC) [Entitic mass] 29.8 pg 25.2 - 33.5 pg [facility] MCHC (RBC) [Mass/Vol] 31.8 g/dL 28.4 - 34.8 g/dL [facility] MCV (RBC) [Entitic vol] 93.8 fL 82.6 - 102.9 fL [facility] Monocytes/100 WBC (Bld) 9 % 3 - 12 % [facility] Monocytes/100 WBC (Bld) 0.55 % [facility] Neutrophils/100 WBC (Bld) 77 % High 36 - 65 % [facility] Nucleated RBC/100 WBC (Bld) [Ratio] 0 % 0.0 per 100 WBC [facility] Platelet mean volume (Bld) [Entitic vol] 11.2 fL 8.1 - 13.5 fL [facility] Platelets (Bld) [#/Vol] 121 10*3/uL Low [facility] RBC (Bld) [#/Vol] 2.58 10*6/uL Low 3.95 - 5.11 m/uL [facility] Segmented neutrophils/100 WBC (Bld) 4.99 % [facility] WBC other (Bld) [#/Vol] 6.4 [facility] CBC with Diffon 06-22-2025 Abs. Basophil <0.03 Normal 0.00-0.20 [facility] Comment on above: Performed By: #### T SETHI, CLARK, CDP, MG #### [facility] [address] [place] [address] [place] [phone] Revenue Audit Clerk: Jazlyn Bhagat MD #### PTHNCA #### [facility] [employer] [address] [place] [address] [phone] Revenue Audit Clerk: Anand Tilley MD Abs.Imm.Granulocyte 0.05 k/uL Normal 0.00-0.30 [facility] Comment on above: Performed By: #### T ROPI, CLARK, CDP, MG #### [facility] [address] [place] [address] [place] [address] Revenue Audit Clerk: Jazlyn Bhagat MD #### PTHNCA #### [facility] [employer] [address] [place] [address] Revenue Audit Clerk: Anand Tilley MD Abs.Neutrophil (Seg) 4.99 k/uL Normal 1.50-8.10 [facility] [place] Comment on above: Performed By: #### T ROPI, CLARK, CDP, MG #### [facility] [address] [place] [address] Dr. [place] [phone] Revenue Audit Clerk: Jazlyn Bhagat MD #### PTHNCA #### [address] [address] Revenue Audit Clerk: Anand Tilley MD Basophils/100 WBC (Bld) 0 % Normal 0-2 [facility] Comment on above: Performed By: #### T ROPI, CLARK, CDP, MG #### [address] [place] [phone] Revenue Audit Clerk: Jazlyn Bhagat MD #### PTHNCA #### [place] [address] Revenue Audit Clerk: Anand Tilley MD Eosinophils (Bld) [#/Vol] 0.06 10*3/uL Normal 0.00-0.44 [facility] Comment on above: Performed By: #### T ROPI, CLARK, CDP, MG #### [address] [place] [phone] Revenue Audit Clerk: Jazlyn Bhagat MD #### PTHNCA #### [address] [address] Revenue Audit Clerk: Anand Tilley MD Eosinophils/100 WBC (Bld) 1 % Normal 1-4 [facility] Comment on above: Performed By: #### T ROPI, CLARK, CDP, MG #### [address] [place], [place] [phone] Revenue Audit Clerk: Jazlyn Bhagat MD #### PTHNCA #### [address] [phone] Revenue Audit Clerk: Anand Tilley MD Erythrocyte distribution width (RBC) [Ratio] 13.5 % Normal 11.8-14.4 [facility] Comment on above: Performed By: #### T ROPI, CLARK, CDP, MG #### [address] [place] [phone] Revenue Audit Clerk: Jazlyn Bhagat MD #### PTHNCA #### [address] [address] Revenue Audit Clerk: Anand Tilley MD Hematocrit (Bld) [Volume fraction] 24.2 % Low 36.3-47.1 [facility] Comment on above: Performed By: #### T ROPI, CLARK, CDP, MG #### [address] [place] [phone] Revenue Audit Clerk: Jazlyn Bhagat MD #### PTHNCA #### [address] [address] Revenue Audit Clerk: Anand Tilley MD Hemoglobin (Bld) [Mass/Vol] 7.7 g/dL Low 11.9-15.1 [facility] Comment on above: Performed By: #### T ROPI, CLARK, CDP, MG #### [address] [place] [phone] Revenue Audit Clerk: Jazlyn Bhagat MD #### PTHNCA #### [address] [address] Revenue Audit Clerk: Anand Tilley MD Immature granulocytes/100 WBC (Bld) 1 % High 0 [facility] Comment on above: Performed By: #### T ROPI, CLARK, CDP, MG #### [address] [place] [phone] Revenue Audit Clerk: Jazlyn Bhagat MD #### PTHNCA #### [address], [place] [phone] Revenue Audit Clerk: Anand Tilley MD Lymphocytes (Bld) [#/Vol] 0.76 10*3/uL Low 1.10-3.70 [facility] Comment on above: Performed By: #### T ROPI, CLARK, CDP, MG #### [facility] [address] [place] [address] Revenue Audit Clerk: Jazlyn Bhagat MD #### PTHNCA #### [address] [phone] Revenue Audit Clerk: Anand Tilley MD Lymphocytes/100 WBC (Bld) 12 % Low 24-43 [facility] Comment on above: Performed By: #### T ROPI, CLARK, CDP, MG #### [facility] [address] [place] [address] [place] [address] Revenue Audit Clerk: Jazlyn Bhagat MD #### PTHNCA #### [address] 1990408 Revenue Audit Clerk: Anand Tilley MD MCH (RBC) [Entitic mass] 29.8 pg Normal 25.2-33.5 [facility] Comment on above: Performed By: #### T ROPI, CLARK, CDP, MG #### [facility] [address] [place] [address] [place] [address] Revenue Audit Clerk: Jazlyn Bhagat MD #### PTHNCA #### [address] [phone] Revenue Audit Clerk: Anand Tilley MD MCHC (RBC) [Mass/Vol] 31.8 g/dL Normal 28.4-34.8 [facility] Comment on above: Performed By: #### T ROPI, CLARK, CDP, MG #### [facility] [address] [place] [address] Revenue Audit Clerk: Jazlyn Bhagat MD #### PTHNCA #### [address] [address] Revenue Audit Clerk: Anand Tilley MD MCV (RBC) [Entitic vol] 93.8 fL Normal 82.6-102.9 [facility] Comment on above: Performed By: #### T ROPI, CLARK, CDP, MG #### [facility] [address] [place] [address] [place] [address] Revenue Audit Clerk: Jazlyn Bhagat MD #### PTHNCA #### [address] [address] Revenue Audit Clerk: Anand Tilley MD Monocytes (Bld) [#/Vol] 0.55 10*3/uL Normal 0.10-1.20 [facility] Comment on above: Performed By: #### T ROPI, CLARK, CDP, MG #### [address] [place] [address] Revenue Audit Clerk: Jazlyn Bhagat MD #### PTHNCA #### [place] [address] Revenue Audit Clerk: Anand Tilley MD Monocytes/100 WBC (Bld) 9 % Normal 3-12 [facility] Comment on above: Performed By: #### T ROPI, CLARK, CDP, MG #### [address] [place] [address] Revenue Audit Clerk: Jazlyn Bhagat MD #### PTHNCA #### [place] [address] Revenue Audit Clerk: Anand Tilley MD Neutrophil (Seg) 77 % High 36-65 [facility] Comment on above: Performed By: #### T ROPI, CLARK, CDP, MG #### [address] [place] [phone] Revenue Audit Clerk: Jazlyn Bhagat MD #### PTHNCA #### [address] [address] Revenue Audit Clerk: Anand Tilley MD NRBC Automated 0.0 per 100 WBC Normal 0.0 [facility] Comment on above: Performed By: #### T ROPI, CLARK, CDP, MG #### [address] [place] [phone] Revenue Audit Clerk: Jazlyn Bhagat MD #### PTHNCA #### [address] [address] Revenue Audit Clerk: Anand Tilley MD Platelet mean volume (Bld) [Entitic vol] 11.2 fL Normal 8.1-13.5 [facility] Comment on above: Performed By: #### T ROPI, CLARK, CDP, MG #### [address] [place] [phone] Revenue Audit Clerk: Jazlyn Bhagat MD #### PTHNCA #### [place] [address] Revenue Audit Clerk: Anand Tilley MD Platelets (Bld) [#/Vol] 121 10*3/uL Low 138-453 [facility] Comment on above: Performed By: #### T ROPI, CLARK, CDP, MG #### [address] [place] [phone] Revenue Audit Clerk: Jazlyn Bhagat MD #### PTHNCA #### [address] [address] Revenue Audit Clerk: Anand Tilley MD RBC (Bld) [#/Vol] 2.58 10*6/uL Low 3.95-5.11 [facility] Comment on above: Performed By: #### T ROPI, CLARK, CDP, MG #### [facility] [address] [place] [address] Dr. [place] [phone] Revenue Audit Clerk: Jazlyn Bhagat MD #### PTHNCA #### [employer] [address] [place], [place] [phone] Revenue Audit Clerk: Anand Tilley MD WBC (Bld) [#/Vol] 6.4 10*3/uL Normal 3.5-11.3 [facility] Comment on above: Performed By: #### T ROPI, CLARK, CDP, MG #### [facility] [address] [place] [address] Revenue Audit Clerk: Jazlyn Bhagat MD #### PTHNCA #### [facility] [employer] [address] [place], [place] [phone] Revenue Audit Clerk: Anand Tilley MD CT FEMUR RIGHT WO CONTRASTon 06-22-2025 CT FEMUR RIGHT WO CONTRAST EXAMINATION: CT OF THE RIGHT FEMUR WITH [...] gas identified. 2. No acute osseous abnormality. Interpreted by: Brian Yates MD Signed by: Brian Yates MD 06/22/25 Final result Normal [facility] CT Thigh - right WO contrast on 06-22-2025 1. Probable skin blister on the anteromedial aspect of the mid right thigh measuring approximately 6.7 x 5.8 x 1.3 cm. Mild adjacent subcutaneous fat stranding. No deep soft tissue ulceration or soft tissue gas identified. 2. No acute osseous abnormality. [facility] EXAMINATION: CT OF THE RIGHT FEMUR WITH [...] unremarkable. No knee effusion or popliteal cyst. [facility] Brian Yates MD - 06/22/2025 EXAMINATION: CT [...] gas identified. 2. No acute osseous abnormality. [facility] Radiology Study observation (narrative) [facility] CT Thigh - right WO contrast Ordered By: Brian Yates on 06-22-2025 [facility] Work Phone: Calcium, [employer] 06-22-2025 Calcium [Moles/Vol] 0.77 mmol/L Low 1.13-1.33 [facility] [place] Comment on above: Performed By: #### T ROPI, CLARK, CDP, MG #### [facility] [address] [place] [address] Revenue Audit Clerk: Jazlyn Bhagat MD #### PTHNCA #### [facility] [employer] [facility] [place] [address] Revenue Audit Clerk: Anand Tilley MD Calcium, Ionizedon 5 Calcium.ionized (Bld) [Moles/Vol] 0.77 mmol/L Low 1.13 - 1.33 mmol/L [facility] Interpretation and review of laboratory results Abnormal [facility] Comp Metabolic Profon 2024 Albumin [Mass/Vol] 4.0 g/dL Normal 3.5-5.2 [facility] Comment on above: Performed By: #### F EBC, FERI #### [address] [address] Revenue Audit Clerk: Anand Tilley MD #### RETCT #### [address] [place], [place] 280[address]83 Revenue Audit Clerk: Jazlyn Bhagat MD Albumin/Glob Ratio 1.6 Normal 1.0-2.5 [facility] Comment on above: Performed By: #### F EBAshlee, FERI #### [address] [address] Revenue Audit Clerk: Anand Tilley MD #### RETCT #### [address] [place], [place] 0838683 Revenue Audit Clerk: Jazlyn Bhagat MD Alkaline Phos 386 U/L High 35-104 [facility] Comment on above: Performed By: #### F LUIS FERNANDO FERI #### [address] [address] Revenue Audit Clerk: Anand Tilley MD #### RETCT #### [address] [place], [place] 5036383 Revenue Audit Clerk: Jazlyn Bhagat MD ALT [Catalytic activity/Vol] 32 U/L Normal 10-35 [facility] Comment on above: Performed By: #### F LUIS FERNANDO, FERI #### [address] [address] Revenue Audit Clerk: Anand Tilley MD #### RETCT #### [facility] [address] [place] [address] Dr. [place], [place] [phone] Revenue Audit Clerk: Jazlyn Bhagat MD Anion gap [Moles/Vol] 19 mmol/L High 9-16 [facility] Comment on above: Performed By: #### F LUIS FERNANDO FERI #### [address] [address] Revenue Audit Clerk: Anand Tilley MD #### RETCT #### [facility] [address] [place] [phone] Revenue Audit Clerk: Jazlyn Bhagat MD AST [Catalytic activity/Vol] 33 U/L Normal 10-35 [facility] Comment on above: Performed By: #### F EBC, FERI #### [address] [address] Revenue Audit Clerk: Anand Tilley MD #### RETCT #### [facility] [address] [place] [phone] Revenue Audit Clerk: Jazlyn Bhagat MD Bilirubin [Mass/Vol] 0.3 mg/dL Normal 0.00-1.20 [facility] Comment on above: Performed By: #### F LUIS FERNANDO FERI #### [address] [address] Revenue Audit Clerk: Anand Tilley MD #### RETCT #### [address] [place] [phone] Revenue Audit Clerk: Jazlyn Bhagat MD BUN/CRE Ratio 15 Normal 9-20 [facility] Comment on above: Performed By: #### F EBAshlee, FERI #### [address] [address] Revenue Audit Clerk: Anand Tilley MD #### RETCT #### [facility] [address] [place] [address] [address]. [place] [phone] Revenue Audit Clerk: Jazlyn Bhagat MD Calcium [Mass/Vol] 5.8 mg/dL Critically low 8.6-10.4 [facility] Comment on above: Performed By: #### F EBC, FERI #### [address] [address] Revenue Audit Clerk: Anand Tilley MD #### RETCT #### [facility] [address] [place] [address] Revenue Audit Clerk: Jazlyn Bhagat MD Chloride [Moles/Vol] 101 mmol/L Normal 98-107 [facility] [place] Comment on above: Performed By: #### F EBC, FERI #### [facility] [address] [place], [place] 1160708 Revenue Audit Clerk: Anand Tilley MD #### RETCT #### [facility] [address] [place] [address] Revenue Audit Clerk: Jazlyn Bhagat MD CO2 [Moles/Vol] 15 mmol/L Low 20-31 [facility] Comment on above: Performed By: #### F EBAshlee, FERI #### [place] [place], [place] 8144308 Revenue Audit Clerk: Anand Tilley MD #### RETCT #### [facility] [address] [place] [address] Revenue Audit Clerk: Jazlyn Bhagat MD Creatinine [Mass/Vol] 4.6 mg/dL High 0.50-0.90 [facility] Comment on above: Performed By: #### F EBAshlee, FERI #### [address] [place], [place] [phone] Revenue Audit Clerk: Anand Tilley MD #### RETCT #### [facility] [address] [place] [address] Revenue Audit Clerk: Jazlyn Bhagat MD GFR/1.73 sq M.predicted among non-blacks MDRD (S/P/Bld) [Vol rate/Area] 9 mL/min/{1.73_m2} Low >60 [facility] Comment on above: Result Comment: These results are not intended for [...] following therapy that affects renal tubular secretion. Performed By: #### F TASHI GOULD #### [address] [address] Revenue Audit Clerk: Anand Tilley MD #### RETCT #### [address] [place], [place] 0404183 Revenue Audit Clerk: Jazlyn Bhagat MD Glucose [Mass/Vol] 134 mg/dL High 74-99 [facility] Comment on above: Performed By: #### F TASHI GOULD #### [address] [address] Revenue Audit Clerk: Anand Tilley MD #### RETCT #### [address] [place] [phone] Revenue Audit Clerk: Jazlyn Bhagat MD Potassium [Moles/Vol] 5.3 mmol/L Normal 3.7-5.3 [facility] Comment on above: Performed By: #### F TASHI GOULD #### [address] [address] Revenue Audit Clerk: Anand Tilley MD #### RETCT #### [address] [place] [phone] Revenue Audit Clerk: Jazlyn Bhagat MD Protein [Mass/Vol] 6.4 g/dL Low 6.6-8.7 [facility] Comment on above: Performed By: #### F TASHI GOULD #### [address] [address] Revenue Audit Clerk: Anand Tilley MD #### RETCT #### [address] [place] [address] Revenue Audit Clerk: Jazlyn Bhagat MD Sodium [Moles/Vol] 135 mmol/L Low 136-145 [facility] Comment on above: Performed By: #### F EBAshlee FERI #### [facility] [address] [place], [place] 2115108 Revenue Audit Clerk: Anand Tilley MD #### RETCT #### [facility] [address] [place] [address] Revenue Audit Clerk: Jazlyn Bhagat MD Urea nitrogen [Mass/Vol] 70 mg/dL High 8-23 [facility] Comment on above: Performed By: #### F EBAshlee FERI #### [facility] [employer] [address] [place], [place] [phone] Revenue Audit Clerk: Anand Tilley MD #### RETCT #### [facility] [address] [place] [address] Revenue Audit Clerk: Jazlyn Bhagat MD [facility] Metabolic Pane [facility] 06-22-2025 Albumin [Mass/Vol] 4 g/dL 3.5 - 5.2 g/dL [facility] Albumin/Globulin [Mass ratio] 1.6 {ratio} 1.0 - 2.5 [facility] ALP [Catalytic activity/Vol] 386 U/L High 35 - 104 U/L [facility] ALT [Catalytic activity/Vol] 32 U/L 10 - 35 U/L [facility] Anion gap [Moles/Vol] 19 mmol/L High 9 - 16 mmol/L [facility] AST [Catalytic activity/Vol] 33 U/L 10 - 35 U/L [facility] Bilirubin [Mass/Vol] 0.3 mg/dL 0.00 - 1.20 mg/ dL [facility] Calcium [Mass/Vol] 5.8 mg/dL Critically low 8.6 - 10.4 mg /dL [facility] Chloride [Moles/Vol] 101 mmol/L 98 - 107 mmol/L [facility] CO2 [Moles/Vol] 15 mmol/L Low 20 - 31 mmol/L [facility] Creatinine [Mass/Vol] 4.6 mg/dL High 0.50 - 0.90 mg/dL [employer] Filt Rate 9 Low - PINF [facility] [employer] Comment on above: These results are not intended for use [...] following therapy that affects renal tubular secretion. Glucose [Mass/Vol] 134 mg/dL High 74 - 99 mg/dL [employer] Interpretation and review of laboratory results Abnormal [employer] Potassium [Moles/Vol] 5.3 mmol/L 3.7 - 5.3 mmol/L [employer] Protein [Mass/Vol] 6.4 g/dL Low 6.6 - 8.7 g/dL [facility] Sodium [Moles/Vol] 135 mmol/L Low 136 - 145 mmol/L [employer] [facility] Urea nitrogen [Mass/Vol] 70 mg/dL High 8 - 23 mg/dL [employer] Urea nitrogen/Creatinine [Mass ratio] 15 mg/mg 9 - 20 [employer] EKG 12 LeadOrdered By: Jayleen Booker hmjose on 06-22-2025 Atrial Rate 77 BPM [employer] Work Phone: P Dierks 36 degrees [employer] Work Phone: P-R Interval 158 ms [employer] Work Phone: Q-T Interval 410 ms [employer] Work Phone: QRS Duration 84 ms [employer] Work Phone: QTc Calculation (Bazett) 463 ms [employer] Work Phone: R Dierks 71 degrees [employer] Work Phone: T Dierks 39 degrees [employer] Work Phone: Ventricular Rate 77 BPM [facility] Krystyna [facility] Work Phone: [facility] Work Phone: EKG 12 Leadon 06-22-2025 Poor data quality, interpretation may be adversely affected Normal sinus rhythm Normal ECG No previous ECGs available Confirmed by Jayleen Price ([id number]) on 06/22/2025 8:07:21 PM [facility] RADIOLOGY Jayleen Price MD - 06/22/2025 Poor data quality, interpretation may be adversely affected Normal sinus rhythm Normal ECG No previous ECGs available Confirmed by Jayleen Price ([id number]) on 06/22/2025 8:07:21 PM [facility] Ferritinon 06-22-2025 Ferritin [Mass/Vol] 413 ng/mL [facility] Comment on above: No reference range e stablished for this age/gender. Ferritin [Mass/Vol] 413 ng/mL Normal [facility] Comment on above: Result Comment: No r eference range established for this age/gender. Performed By: #### F TASHI GOULD #### [facility] [employer] [address] [place] [address] Revenue Audit Clerk: Anand Tilley MD #### RETCT #### [facility] [address] [place] [address] Revenue Audit Clerk: Jazlyn Bhagat MD Hemoglobin and Hematocriton 06-22-2025 Hematocrit (Bld) [Volume fraction] 22.4 % Low 36.3 - 47.1 % [facility] Hemoglobin (Bld) [Mass/Vol] 7.2 g/dL Low 11.9 - 15.1 g/dL [facility] Interpretation and review of laboratory results Abnormal [facility] Hgb/Hcton 06-22-2025 Hematocrit (Bld) [Volume fraction] 22.4 % Low 36.3-47.1 [facility] Comment on above: Performed By: #### F EBAshlee, FERI #### [address] [place] [address] Revenue Audit Clerk: Anand Tilley MD #### RETCT #### [address] [place], [place] 4805083 Revenue Audit Clerk: Jazlyn Bhagat MD Hemoglobin (Bld) [Mass/Vol] 7.2 g/dL Low 11.9-15.1 [facility] Comment on above: Performed By: #### F EBC, FERI #### [address] [address] Revenue Audit Clerk: Anand Tilley MD #### RETCT #### [address] [place] [address] Revenue Audit Clerk: Jazlyn Bhagat MD Iron Binding Cap.on 06-22-20 25 % Fe Saturation 35 % Normal 20-55 [facility] Comment on above: Performed By: #### F EBC, FERI #### [address] [address] Revenue Audit Clerk: Anand Tilley MD #### RETCT #### [address] [place] [address] Revenue Audit Clerk: Jazlyn Bhagat MD Iron [Mass/Vol] 79 ug/dL Normal 37-145 [facility] Comment on above: Performed By: #### F EBC, FERI #### [address] [address] Revenue Audit Clerk: Anand Tilley MD #### RETCT #### [address] [place] [address] Revenue Audit Clerk: Jazlyn Bhagat MD Total Fe Binding Cap 226 ug/dL Low 250-450 [facility] [place] Comment on above: Performed By: #### F EBC, FERI #### [address], [place] 0671008 Revenue Audit Clerk: Anand Tilley MD #### RETCT #### [facility] [address] [place] [address] Revenue Audit Clerk: Jazlyn Bhagat MD Unbound Fe Bind Cap 147 ug/dL Normal 112-347 [facility] Comment on above: Performed By: #### F TASHI GOULD #### [facility] [address] [place] [address] Revenue Audit Clerk: Anand Tilley MD #### RETCT #### [facility] [address] [place] [address] Revenue Audit Clerk: Jazlyn Bhagat MD Iron and TIBCon 06-22-2025 Iron [Mass/Vol] 79 ug/dL 37 - 145 ug/dL [facility] Iron binding capacity [Mass/Vol] 226 ug/dL Low 250 - 450 ug/dL [facility] Iron saturation [Mass fraction] 35 % 20 - 55 % [facility] UIBC 147 ug/dL 112 - 347 ug/dL [facility] Lipaseon 06-22-2025 Lipase [Catalytic activity/Vol] 31 U/L 13 - 60 U/L [facility] Lipase [Catalytic activity/Vol] 31 U/L Normal 13-60 [facility] Comment on above: Performed By: #### F TASHI GOULD #### [address] [place] [address] Revenue Audit Clerk: Anand Tilley MD #### RETCT #### [facility] [address] [place] [address] Revenue Audit Clerk: Jazlyn Bhagat MD Magnesiumon 06-22-2025 Magnesium [Mass/Vol] 1.1 mg/dL Low 1.6 - 2.4 mg/dL [facility] Magnesium [Mass/Vol] 1.1 mg/dL Low 1.6-2.4 [facility] [place] Comment on above: Performed By: #### T ROPI, CLARK, CDP, MG #### [facility] [address] [place] [address] Revenue Audit Clerk: Jazlyn Bhagat MD #### PTHNCA #### [facility] [address] [place], [place] 1041208 Revenue Audit Clerk: Anand Tilley MD Microscopic Urinalysison Bacteria LM Ql (Urine sed) TRACE Abnormal None [facility] Epithelial cells LM.HPF (Urine sed) [#/Area] None [facility] Interpretation and review of laboratory results Abnormal [facility] RBC LM.HPF (Urine sed) [#/Area] None [facility] WBC LM.HPF (Urine sed) [#/Area] 2 TO 5 [facility] No Panel Informationon 06-22 Interpretation and review of laboratory results Abnormal [facility] Interpretation and review of laboratory results Abnormal [facility] Interpretation and review of laboratory results Abnormal [facility] O+P,Giardia Ag Onlyon 2024 Source .FECES Normal [facility] Comment on above: Performed By: #### T ROPI, CLARK, CDP, MG #### [facility] [address] [place] [address] Revenue Audit Clerk: Jazlyn Bhagat MD #### PTHNCA #### [facility] [employer] [address] [place], [place] [phone] Revenue Audit Clerk: Anand Tilley MD PTH, Intacton 06-22-2025 Interpretation and review of laboratory results Abnormal [facility] Parathyrin.intact [Mass/Vol] 313.0 pg/mL High 17.9 - 58.6 pg/mL [facility] PTH, Intact 313.0 pg/mL High 17.9-58.6 [facility] Comment on above: Performed By: #### T ROPI, CLARK, CDP, MG #### [address] [place], [place] 3898583 Revenue Audit Clerk: Jazlyn Bhagat MD #### PTHNCA #### [address] [place], [place] [phone] Revenue Audit Clerk: Anand Tilley MD Interpretation and review of laboratory results Abnormal [facility] Parathyrin.intact [Mass/Vol] 331.0 pg/mL High 17.9 - 58.6 pg/mL [facility] PTH, Intact 331.0 pg/mL High 17.9-58.6 [facility] Comment on above: Performed By: #### F TASHI GOULD #### [address] [place], [place] [phone] Revenue Audit Clerk: Anand Tilley MD #### RETCT #### [address] [place] [address] Revenue Audit Clerk: Jazlyn Bhagat MD Phosphoruson 06-22-2025 Phosphate [Mass/Vol] 4.6 mg/dL High 2.5 - 4.5 mg/dL [facility] Phosphate [Mass/Vol] 4.6 mg/dL High 2.5 - 4.5 mg/dL [facility] Phosphorus, Inorg.on 025 Phosphorus, Inorg. 4.6 mg/dL High 2.5-4.5 [facility] Comment on above: Performed By: #### T ROPI, CLARK, CDP, MG #### [address] [place] [address] Revenue Audit Clerk: Jazlyn Bhagat MD #### PTHNCA #### [address] [place], [place] [phone] Revenue Audit Clerk: Anand Tilley MD Phosphorus, Inorg. 4.6 mg/dL High 2.5-4.5 [facility] Comment on above: Performed By: #### F EBC, FERI #### [address] [place] [address] Revenue Audit Clerk: Anand Tilley MD #### RETCT #### [address] [place] [address] Revenue Audit Clerk: Jazlyn Bhagat MD Protein / creatinine ratio, urineon 06-22-2025 Creatinine (U) [Mass/Vol] 77.3 mg/dL 28.0 - 217.0 mg/dL [facility] Interpretation and review of laboratory results Abnormal [facility] Protein (U) [Mass/Vol] 120 mg/dL [facility] Comment on above: No normal range esta blished. Urine Total Protein Creatinine Ratio 1.55 High 0.00 - 0.20 [facility] Protein,Tot,Mathews Uron 2024 Creatinine [Mass/Vol] 77.3 mg/dL Normal 28.0-217.0 [facility] Comment on above: Performed By: #### F LUIS FERNANDO FERI #### [address] [id number] Revenue Audit Clerk: Anand Tilley MD #### RETCT #### [address] [place] [address] Revenue Audit Clerk: Jazlyn Bhagat MD Tot Prot. Conc. 120 mg/dL Normal [facility] Comment on above: Result Comment: No n ormal range established. Performed By: #### F LUIS FERNANDO FERI #### [address] [place] [address] Revenue Audit Clerk: Anand Tilley MD #### RETCT #### [address] [place] [address] Revenue Audit Clerk: Jazlyn Bhagat MD TP/Cre Ratio 1.55 High 0.00-0.20 [facility] Comment on above: Performed By: #### F EBC, FERI #### [facility] [address] [place] [address] Revenue Audit Clerk: Anand Tilley MD #### RETCT #### [address] [place], [place] 1078883 Revenue Audit Clerk: Jazlyn Bhagat MD TSH reflex to FT4on 06-22-20 TSH Qn 3.71 m[IU]/L [facility] TSH w/reflex to FT4on 2024 Thyroid Stim. Horm. 3.71 uIU/mL Normal 0.27-4.20 [facility] [place] Comment on above: Performed By: #### T ROPI, CLARK, CDP, MG #### [address] [place] [address] Revenue Audit Clerk: Jazlyn Bhagat MD #### PTHNCA #### [address] [address] Revenue Audit Clerk: Anand Tilley MD Troponinon 6 Interpretation and review of laboratory results Abnormal [facility] Troponin I.cardiac High sensitivity method [Mass/Vol] 17 ng/L High 0 - 14 ng/L [facility] Comment on above: High Sensitivity Tro ponin values cannot be compared with other Troponin methodologies. [facility] Troponin, High Sens 17 ng/L High 0-14 [facility] Comment on above: Result Comment: High Sensitivity Troponin values cannot be compared with other Troponin methodologies. Performed By: #### F LUIS FERNANDO FERI #### [address] [place] [address] Revenue Audit Clerk: Anand Tilley MD #### RETCT #### [address] [place], [place] 7409083 Revenue Audit Clerk: Jazlyn Bhagat MD Troponin I.cardiac High sensitivity method [Mass/Vol] 19 ng/L High 0 - 14 ng/L [facility] Comment on above: High Sensitivity Tro ponin values cannot be compared with other Troponin methodologies. Troponin, High Sens 19 ng/L High 0-14 [facility] Comment on above: Result Comment: High Sensitivity Troponin values cannot be compared with other Troponin methodologies. Performed By: #### T ROPI, CLARK, CDP, MG #### [facility] [address] [place] [address] Revenue Audit Clerk: Jazlyn Bhagat MD #### PTHNCA #### [facility] [employer] [address] [place], [place] [phone] Revenue Audit Clerk: Anand Tilley MD Kidneyon 06-22-2025 Radiology Study observation (narrative) [facility] Urinalysison 06-22-2025 Bilirubin Ql (U) Negative NEGATIVE [facility] Clarity (U) Clear Clear [facility] Color (U) Yellow Yellow [facility] Glucose Test strip (U) [Mass/Vol] TRACE Abnormal NEGATIVE mg/dL [facility] Hemoglobin Auto test strip Ql (U) 1+ Abnormal NEGATIVE [facility] Interpretation and review of laboratory results Abnormal [facility] Ketones (U) [Mass/Vol] Negative NEGATIVE mg/dL [facility] Leukocyte esterase Test strip Ql (U) SMALL Abnormal NEGATIVE [facility] Nitrite Ql (U) Negative NEGATIVE [facility] pH (U) 6 [pH] 5.0 - 9.0 [facility] Protein (U) [Mass/Vol] 2+ Abnormal NEGATIVE mg/dL [facility] Specific gravity (U) [Rel density] 1.02 1.010 - 1.020 [facility] Urobilinogen Qn (U) Normal 0.0 - 1.0 EU/dL [facility] Urinalysis, Routineon 2024 Bilirubin, SemiQt,Ur Negative Normal NEG [facility] [place] Comment on above: Performed By: #### F EBC, FERI #### [facility] [employer] [address] [place], [place] [phone] Revenue Audit Clerk: Anand Tilley MD #### RETCT #### [facility] [address] [place] [address] [place] [address] Revenue Audit Clerk: Jazlyn Bhagat MD Blood, Urine 1+ Abnormal NEG [facility] Comment on above: Performed By: #### F EBC, FERI #### [facility] [address] [place] [address] Revenue Audit Clerk: Anand Tilley MD #### RETCT #### [address] [place], [place] 5343283 Revenue Audit Clerk: Jazlyn Bhagat MD Clarity (U) Clear Normal CLEAR [facility] Comment on above: Performed By: #### F EBC, FERI #### [address] [address] Revenue Audit Clerk: Anand Tilley MD #### RETCT #### [address] [place], [place] 8134583 Revenue Audit Clerk: Jazlyn Bhagat MD Color (U) Yellow Normal YEL [facility] Comment on above: Performed By: #### F EBC, FERI #### [address] [address] Revenue Audit Clerk: Anand Tilley MD #### RETCT #### [address] [place], [place] [phone] Revenue Audit Clerk: Jazlyn Bhagat MD Glucose Ql (U) TRACE Abnormal [facility]G [facility] Comment on above: Performed By: #### F EBC, FERI #### [facility] [address] [place] [address] Revenue Audit Clerk: Anand Tilley MD #### RETCT #### [address] [place] [address] Revenue Audit Clerk: Jazlyn Bhagat MD Ketones Ql (U) Negative Normal NEG [facility] Comment on above: Performed By: #### F EBC, FERI #### [address] [address] Revenue Audit Clerk: Anand Tilley MD #### RETCT #### [facility] [address] [place] [address] Dr. [place], [place] 3139783 Revenue Audit Clerk: Jazlyn Bhagat MD Leukocyte esterase Test strip Ql (U) SMALL Abnormal NEG [facility] Comment on above: Performed By: #### F EBC, FERI #### [address] [address] Revenue Audit Clerk: Anand Tilley MD #### RETCT #### [address] [place], [place] 4607583 Revenue Audit Clerk: Jazlyn Bhagat MD Nitrite,Ur Negative Normal NEG [facility] Comment on above: Performed By: #### F EBAshlee, FERI #### [address] [address] Revenue Audit Clerk: Anand Tilley MD #### RETCT #### [address] [place], [place] 1886683 Revenue Audit Clerk: Jazlyn Bhagat MD PH,Ur 6.0 Normal 5.0-9.0 [facility] Comment on above: Performed By: #### F EBC, FERI #### [address] [address] Revenue Audit Clerk: Anand Tilley MD #### RETCT #### [facility] [address] [place] [address] Dr. [place], [place] 4538783 Revenue Audit Clerk: Jazlyn Bhagat MD Protein Ql (U) 2+ mg/dL Abnormal NEG [facility] Comment on above: Performed By: #### F EBC, FERI #### [address] [address] Revenue Audit Clerk: Anand Tilley MD #### RETCT #### [address] [place], [place] 3403983 Revenue Audit Clerk: Jazlyn Bhagat MD Spec. Laurel,Ur 1.020 Normal 1.010-1.020 [facility] Comment on above: Performed By: #### F EBC, FERI #### [address] [address] Revenue Audit Clerk: Anand Tilley MD #### RETCT #### [address] [place] [phone] Revenue Audit Clerk: Jazlyn Bhagat MD Urobilinogen,Ur Normal Normal 0.0-1.0 [facility] Comment on above: Performed By: #### F EBC, FERI #### [address] [address] Revenue Audit Clerk: Anand Tilley MD #### RETCT #### [address] [place] [phone] Revenue Audit Clerk: Jazlyn Bhagat MD Urinalysis,Microon 5 Bacteria TRACE Abnormal NONE [facility] Comment on above: Performed By: #### F EBC, FERI #### [address] [address] Revenue Audit Clerk: Anand Tilley MD #### RETCT #### [address] [place] [phone] Revenue Audit Clerk: Jazlyn Bhagat MD Epithelial cells LM Ql (Urine sed) None Normal 0-25 [facility] Comment on above: Performed By: #### F EBC, FERI #### [address] [address] Revenue Audit Clerk: Anand Tilley MD #### RETCT #### [facility] [address] [place], [place] [phone] Revenue Audit Clerk: Jazlyn Bhagat MD Urine RBC's None Normal 0-2 [facility] Comment on above: Performed By: #### F EBAshlee, FERI #### [facility] [address] [place] [address] Revenue Audit Clerk: Anand Tilley MD #### RETCT #### [address] [place] [address] Revenue Audit Clerk: Jazlyn Bhagat MD Urine WBC's 2 TO 5 Normal 0-5 [facility] Comment on above: Performed By: #### F LUIS FERNANDO FERI #### [facility] [address] [place] [address] Revenue Audit Clerk: Anand Tilley MD #### RETCT #### [address] [place], [place] [phone] Revenue Audit Clerk: Jazlyn Bhagat MD Vitamin D 25 Hydroxyon 06-22 25-hydroxyvitamin D3 [Mass/Vol] 26.2 ng/mL Low 30.0 - 100.0 ng/mL [facility] Comment on above: Reference Range: Vitamin D status Range Deficiency <20 ng/mL Mild Deficiency 20-30 ng/mL Sufficiency 30-100 ng/mL Toxicity >100 ng/mL Vitamin D 25 OHon 06-22-2025 Vitamin D 25 OH 26.2 ng/mL Low 30.0-100.0 [facility] Comment on above: Result Comment: Reference Range: Vitamin D status Range Deficiency <20 ng/mL Mild Deficiency 20-30 ng/mL Sufficiency 30-100 ng/mL Toxicity >100 ng/mL Performed By: #### F LUIS FERNANDO, FERI #### [facility] [address] [place] [address] Revenue Audit Clerk: Anand Tilley MD #### RETCT #### [address] [place] [phone] Revenue Audit Clerk: Jazlyn Bhagat MD Office Visiton 06-21-2025 Follow-up visit [id number] Sylvia Herrera 1945 F Date Provider Department Center 06/21/2025 ANISHA JACOBS Katie David Family History Family history unknown: Yes Level of Service:40522 [place] OFFICE/OUTPATIENT ESTABLISHED MOD MDM 30 MIN Normal [facility] Comp Metabolic Profon 2024 Albumin [Mass/Vol] 4.0 g/dL Normal 3.5-5.2 [facility] Comment on above: Performed By: #### T ROPI, CLARK, CDP, MG #### [facility] [address] [place] [address] Revenue Audit Clerk: Jazlyn Bhagat MD #### PTHNCA #### [address] [phone] Revenue Audit Clerk: Anand Tilley MD Albumin/Glob Ratio 1.5 Normal 1.0-2.5 [facility] Comment on above: Performed By: #### T ROPI, CLARK, CDP, MG #### [facility] [address] [place] [address] Revenue Audit Clerk: Jazlyn Bhagat MD #### PTHNCA #### [place] [address] [place], [place] 7763208 Revenue Audit Clerk: Anand Tilley MD Alkaline Phos 349 U/L High 35-104 [facility] Comment on above: Performed By: #### T ROPI, CLARK, CDP, MG #### [facility] [address] [place] [address] Revenue Audit Clerk: Jazlyn Bhagat MD #### PTHNCA #### [place] [address] [place], [place] 7391608 Revenue Audit Clerk: Anand Tilley MD ALT [Catalytic activity/Vol] 28 U/L Normal 10-35 [facility] Comment on above: Performed By: #### T ROPI, CLARK, CDP, MG #### [facility] [address] [place], [place] [phone] Revenue Audit Clerk: Jazlyn Bhagat MD #### PTHNCA #### [place] [place], [place] [phone] Revenue Audit Clerk: Anand Tilley MD Anion gap [Moles/Vol] 11 mmol/L Normal 9-16 [facility] Comment on above: Performed By: #### T ROPI, CLARK, CDP, MG #### [facility] [address] [place], [place] [phone] Revenue Audit Clerk: Jazlyn Bhagat MD #### PTHNCA #### [place] [address] [place], [place] [phone] Revenue Audit Clerk: Anand Tilley MD AST [Catalytic activity/Vol] 31 U/L Normal 10-35 [facility] Comment on above: Performed By: #### T ROPI, CLARK, CDP, MG #### [facility] [address] [place], [place] [phone] Revenue Audit Clerk: Jazlyn Bhagat MD #### PTHNCA #### [place] [address] [place], [place] 3503608 Revenue Audit Clerk: Anand Tilley MD Bilirubin [Mass/Vol] 0.4 mg/dL Normal 0.00-1.20 [facility] [place] Comment on above: Performed By: #### T ROPI, CLARK, CDP, MG #### [facility] [address] [place], [place] [phone] Revenue Audit Clerk: Jazlyn Bhagat MD #### PTHNCA #### [address] [phone] Revenue Audit Clerk: Anand Tilley MD BUN/CRE Ratio 13 Normal 9-20 [facility] Comment on above: Performed By: #### T ROPI, CLARK, CDP, MG #### [facility] [address] [place], [place] 4125983 Revenue Audit Clerk: Jazlyn Bhagat MD #### PTHNCA #### [address] [phone] Revenue Audit Clerk: Anand Tilley MD Calcium [Mass/Vol] 7.3 mg/dL Low 8.6-10.4 [facility] Comment on above: Performed By: #### T ROPI, CLARK, CDP, MG #### [facility] [address] [place] [address] Revenue Audit Clerk: Jazlyn Bhagat MD #### PTHNCA #### [address] [phone] Revenue Audit Clerk: Anand Tilley MD Chloride [Moles/Vol] 111 mmol/L High 98-107 [facility] [place] Comment on above: Performed By: #### T ROPI, CLARK, CDP, MG #### [facility] [address] [place] [address] Revenue Audit Clerk: Jazlyn Bhagat MD #### PTHNCA #### [address] [phone] Revenue Audit Clerk: Anand Tilley MD CO2 [Moles/Vol] 17 mmol/L Low 20-31 [facility] Comment on above: Performed By: #### T ROPI, CLARK, CDP, MG #### [facility] [address] [place] [address] Revenue Audit Clerk: Jazlyn Bhagat MD #### PTHNCA #### [address] [phone] Revenue Audit Clerk: Anand Tilley MD Creatinine [Mass/Vol] 3.5 mg/dL High 0.50-0.90 [facility] Comment on above: Performed By: #### T ROPI, CLARK, CDP, MG #### [address] [place] [address] Revenue Audit Clerk: Jazlyn Bhagat MD #### PTHNCA #### [address] [phone] Revenue Audit Clerk: Anand Tilley MD GFR/1.73 sq M.predicted among non-blacks MDRD (S/P/Bld) [Vol rate/Area] 13 mL/min/{1.73_m2} Low >60 [facility] Comment on above: Result Comment: These results are not intended for [...] following therapy that affects renal tubular secretion. Performed By: #### T ROPI, CLARK, CDP, MG #### [address] [place] [address] Revenue Audit Clerk: Jazyln Bhagat MD #### PTHNCA #### [address] [phone] Revenue Audit Clerk: Anand Tilley MD Glucose [Mass/Vol] 112 mg/dL High 74-99 [facility] Comment on above: Performed By: #### T ROPI, CLARK, CDP, MG #### [facility] [address] [place] [address] [place], [place] [phone] Revenue Audit Clerk: Jazlyn Bhagat MD #### PTHNCA #### [place] [address] [place], [place] 0559308 Revenue Audit Clerk: Anand Tilley MD Potassium [Moles/Vol] 5.2 mmol/L Normal 3.7-5.3 [facility] Comment on above: Performed By: #### T ROPI, CLARK, CDP, MG #### [address] [place] [address] Revenue Audit Clerk: Jazlyn Bhagat MD #### PTHNCA #### [place] [address] [place], [place] 9154408 Revenue Audit Clerk: Anand Tilley MD Protein [Mass/Vol] 6.6 g/dL Normal 6.6-8.7 [facility] Comment on above: Performed By: #### T ROPI, CLARK, CDP, MG #### [facility] [address] [place] [address] [place] [address] Revenue Audit Clerk: Jazlyn Bhagat MD #### PTHNCA #### [address] [phone] Revenue Audit Clerk: Anand Tilley MD Sodium [Moles/Vol] 139 mmol/L Normal 136-145 [facility] Comment on above: Performed By: #### T ROPI, CLARK, CDP, MG #### [address] [place] [address] Revenue Audit Clerk: Jazlyn Bhagat MD #### PTHNCA #### [address] [phone] Revenue Audit Clerk: Anand Tilley MD Urea nitrogen [Mass/Vol] 46 mg/dL High 8-23 [facility] Comment on above: Performed By: #### T ROPI, CLARK, CDP, MG #### [facility] [address] [place] [address] [place] [address] Revenue Audit Clerk: Jazlyn Bhagat MD #### PTHNCA #### [address] [phone] Revenue Audit Clerk: Anand Tilley MD Comprehensive Metabolic Pane adan 06-07-2025 Albumin [Mass/Vol] 4 g/dL 3.5 - 5.2 g/dL [facility] Albumin/Globulin [Mass ratio] 1.5 {ratio} 1.0 - 2.5 [facility] ALP [Catalytic activity/Vol] 349 U/L High 35 - 104 U/L [facility] ALT [Catalytic activity/Vol] 28 U/L 10 - 35 U/L [facility] Anion gap [Moles/Vol] 11 mmol/L 9 - 16 mmol/L [facility] AST [Catalytic activity/Vol] 31 U/L 10 - 35 U/L [facility] Bilirubin [Mass/Vol] 0.4 mg/dL 0.00 - 1.20 mg/ dL [facility] Calcium [Mass/Vol] 7.3 mg/dL Low 8.6 - 10.4 mg/dL [facility] Chloride [Moles/Vol] 111 mmol/L High 98 - 107 mmol/L [facility] CO2 [Moles/Vol] 17 mmol/L Low 20 - 31 mmol/L [facility] Creatinine [Mass/Vol] 3.5 mg/dL High 0.50 - 0.90 mg/dL [facility] Est, Glom Filt Rate 13 Low - PINF [facility] Comment on above: These results are not intended for use [...] following therapy that affects renal tubular secretion. Glucose [Mass/Vol] 112 mg/dL High 74 - 99 mg/dL [facility] Interpretation and review of laboratory results Abnormal [facility] Potassium [Moles/Vol] 5.2 mmol/L 3.7 - 5.3 mmol/L [facility] Protein [Mass/Vol] 6.6 g/dL 6.6 - 8.7 g/dL [facility] Sodium [Moles/Vol] 139 mmol/L 136 - 145 mmol/L [facility] Urea nitrogen [Mass/Vol] 46 mg/dL High 8 - 23 mg/dL [facility] Urea nitrogen/Creatinine [Mass ratio] 13 mg/mg 9 - 20 [facility] CBC auto differentialon 05-03 Basophils (Bld) [#/Vol] [facility] Basophils/100 WBC (Bld) 0 % 0 - 2 % [facility] Eosinophils (Bld) [#/Vol] 0.15 10*3/uL [facility] Eosinophils/100 WBC (Bld) 2 % 1 - 4 % [facility] Erythrocyte distribution width (RBC) [Ratio] 12.7 % 11.8 - 14.4 % [facility] Hematocrit (Bld) [Volume fraction] 23.3 % Low 36.3 - 47.1 % [facility] Hemoglobin (Bld) [Mass/Vol] 7.3 g/dL Low 11.9 - 15.1 g/dL [facility] Immature granulocytes (Bld) [#/Vol] 0.04 10*3/uL [facility] Immature granulocytes/100 WBC (Bld) 1 % High 0 [facility] Interpretation and review of laboratory results Abnormal [facility] Lymphocytes/100 WBC (Bld) 12 % Low 24 - 43 % [facility] Lymphocytes/100 WBC (Bld) 0.77 % Low [facility] MCH (RBC) [Entitic mass] 29.6 pg 25.2 - 33.5 pg [facility] MCHC (RBC) [Mass/Vol] 31.3 g/dL 28.4 - 34.8 g/dL [facility] MCV (RBC) [Entitic vol] 94.3 fL 82.6 - 102.9 fL [facility] Monocytes/100 WBC (Bld) 10 % 3 - 12 % [facility] Monocytes/100 WBC (Bld) 0.62 % [facility] Neutrophils/100 WBC (Bld) 75 % High 36 - 65 % [facility] Nucleated RBC/100 WBC (Bld) [Ratio] 0 % 0.0 per 100 WBC [facility] Platelet mean volume (Bld) [Entitic vol] 11 fL 8.1 - 13.5 fL [facility] Platelets (Bld) [#/Vol] 118 10*3/uL Low [facility] RBC (Bld) [#/Vol] 2.47 10*6/uL Low 3.95 - 5.11 m/uL [facility] Segmented neutrophils/100 WBC (Bld) 4.6 % [facility] WBC other (Bld) [#/Vol] 6.2 [facility] CBC with Diffon 05-30-2025 Abs. Basophil <0.03 Normal 0.00-0.20 [facility] Comment on above: Performed By: #### F EBC, FERI #### [place] [address] [place] [address] Revenue Audit Clerk: Anand Tilley MD #### RETCT #### [address] [place] [address] Revenue Audit Clerk: Jazlyn Bhagat MD Abs.Imm.Granulocyte 0.04 k/uL Normal 0.00-0.30 [facility] Comment on above: Performed By: #### F EBC, FERI #### [address] [address] Revenue Audit Clerk: Anand Tilley MD #### RETCT #### [address] [place] [address] Revenue Audit Clerk: Jazlyn Bhagat MD Abs.Neutrophil (Seg) 4.60 k/uL Normal 1.50-8.10 [facility] [place] Comment on above: Performed By: #### F EBC, FERI #### [address] [address] Revenue Audit Clerk: Anand Tilley MD #### RETCT #### [address] [place] [phone] Revenue Audit Clerk: Jazlyn Bhagat MD Basophils/100 WBC (Bld) 0 % Normal 0-2 [facility] Comment on above: Performed By: #### F EBC, FERI #### [address] [address] Revenue Audit Clerk: Anand Tilley MD #### RETCT #### [address] [place] [address] Revenue Audit Clerk: Jazlyn Bhagat MD Eosinophils (Bld) [#/Vol] 0.15 10*3/uL Normal 0.00-0.44 [facility] Comment on above: Performed By: #### F EBAshlee FERI #### [address] [address] Revenue Audit Clerk: Anand Tilley MD #### RETCT #### [address] [place] [address] Revenue Audit Clerk: Jazlyn Bhagat MD Eosinophils/100 WBC (Bld) 2 % Normal 1-4 [facility] Comment on above: Performed By: #### F LUIS FERNANDO FERI #### [address] [address] Revenue Audit Clerk: Anand Tilley MD #### RETCT #### [address] [place] [address] Revenue Audit Clerk: Jazlyn Bhagat MD Erythrocyte distribution width (RBC) [Ratio] 12.7 % Normal 11.8-14.4 [facility] Comment on above: Performed By: #### F EBAshlee FERI #### [address] [address] Revenue Audit Clerk: Anand Tilley MD #### RETCT #### [address] [place] [address] Revenue Audit Clerk: Jazlyn Bhagat MD Hematocrit (Bld) [Volume fraction] 23.3 % Low 36.3-47.1 [facility] Comment on above: Performed By: #### F EBAshlee FERI #### [address] [address] Revenue Audit Clerk: Anand Tilley MD #### RETCT #### [facility] [address] [place] [address] [place] [address] Revenue Audit Clerk: Jazlyn Bhagat MD Hemoglobin (Bld) [Mass/Vol] 7.3 g/dL Low 11.9-15.1 [facility] Comment on above: Performed By: #### F EBAshlee, FERI #### [address] [address] Revenue Audit Clerk: Anand Tilley MD #### RETCT #### [address] [place] [address] Revenue Audit Clerk: Jazlyn Bhagat MD Immature granulocytes/100 WBC (Bld) 1 % High 0 [facility] Comment on above: Performed By: #### F LUIS FERNANDO FERI #### [address] [address] Revenue Audit Clerk: Anand Tilley MD #### RETCT #### [facility] [address] [place] [address] [place]. [place] [phone] Revenue Audit Clerk: Jazlyn Bhagat MD Lymphocytes (Bld) [#/Vol] 0.77 10*3/uL Low 1.10-3.70 [facility] Comment on above: Performed By: #### F EBAshlee, FERI #### [address] [address] Revenue Audit Clerk: Anand Tilley MD #### RETCT #### [facility] [address] [place] [address] [place] [address] Revenue Audit Clerk: Jazlyn Bhagat MD Lymphocytes/100 WBC (Bld) 12 % Low 24-43 [facility] Comment on above: Performed By: #### F EBC, FERI #### [address] [address] Revenue Audit Clerk: Anand Tilley MD #### RETCT #### [facility] [address] [place] [address] Revenue Audit Clerk: Jazlyn Bhagat MD MCH (RBC) [Entitic mass] 29.6 pg Normal 25.2-33.5 [facility] Comment on above: Performed By: #### F LUIS FERNANDO FERI #### [address] [phone] Revenue Audit Clerk: Anand Tilley MD #### RETCT #### [address] [place] [phone] Revenue Audit Clerk: Jazlyn Bhagat MD MCHC (RBC) [Mass/Vol] 31.3 g/dL Normal 28.4-34.8 [facility] Comment on above: Performed By: #### F LUIS FERNANDO FERI #### [address] [phone] Revenue Audit Clerk: Anand Tilley MD #### RETCT #### [facility] [address] [place] [address] Dr. [place] [phone] Revenue Audit Clerk: Jazlyn Bhagat MD MCV (RBC) [Entitic vol] 94.3 fL Normal 82.6-102.9 [facility] Comment on above: Performed By: #### F LUIS FERNANDO FERI #### [address] [phone] Revenue Audit Clerk: Anand Tilley MD #### RETCT #### [address] [place] [address] Revenue Audit Clerk: Jazlyn Bhagat MD Monocytes (Bld) [#/Vol] 0.62 10*3/uL Normal 0.10-1.20 [facility] Comment on above: Performed By: #### F LUIS FERNANDO FERI #### [address] [phone] Revenue Audit Clerk: Anand Tilley MD #### RETCT #### [facility] [address] [place], [place] 8926283 Revenue Audit Clerk: Jazlyn Bhagat MD Monocytes/100 WBC (Bld) 10 % Normal 3-12 [facility] Comment on above: Performed By: #### F EBC, FERI #### [address] [address] Revenue Audit Clerk: Anand Tilley MD #### RETCT #### [address] [place], [place] [phone] Revenue Audit Clerk: Jazlyn Bhagat MD Neutrophil (Seg) 75 % High 36-65 [facility] Comment on above: Performed By: #### F EBC, FERI #### [address] [address] Revenue Audit Clerk: Anand Tilley MD #### RETCT #### [facility] [address] [place] [address] [place]. [place] [phone] Revenue Audit Clerk: Jazlyn Bhagat MD NRBC Automated 0.0 per 100 WBC Normal 0.0 [facility] Comment on above: Performed By: #### F EBC, FERI #### [address] [address] Revenue Audit Clerk: Anand Tilley MD #### RETCT #### [address] [place] [phone] Revenue Audit Clerk: Jazlyn Bhagat MD Platelet mean volume (Bld) [Entitic vol] 11.0 fL Normal 8.1-13.5 [facility] Comment on above: Performed By: #### F EBC, FERI #### [address] [address] Revenue Audit Clerk: Anand Tilley MD #### RETCT #### [facility] [address] [place], [place] 1709183 Revenue Audit Clerk: Jazlyn Bhagat MD Platelets (Bld) [#/Vol] 118 10*3/uL Low 138-453 [facility] Comment on above: Performed By: #### F EBC, FERI #### [address] [address] Revenue Audit Clerk: Anand Tilley MD #### RETCT #### [address] [place], [place] 1657483 Revenue Audit Clerk: Jazlyn Bhagat MD RBC (Bld) [#/Vol] 2.47 10*6/uL Low 3.95-5.11 [facility] Comment on above: Performed By: #### F EBC, FERI #### [address] [address] Revenue Audit Clerk: Anand Tilley MD #### RETCT #### [address] [place], [place] 2663583 Revenue Audit Clerk: Jazlyn Bhagat MD WBC (Bld) [#/Vol] 6.2 10*3/uL Normal 3.5-11.3 [facility] Comment on above: Performed By: #### F EBC, FERI #### [address] [address] Revenue Audit Clerk: Anand Tilley MD #### RETCT #### [address] [place], [place] 9134583 Revenue Audit Clerk: Jazlyn Bhagat MD Comp Metabolic Pr/rfx MGon 0 05-30-2025 Albumin [Mass/Vol] 3.2 g/dL Low 3.5-5.2 [facility] Comment on above: Performed By: #### F EBC, FERI #### [address] [address] Revenue Audit Clerk: Anand Tilley MD #### RETCT #### [facility] [address] [place], [place] 8947083 Revenue Audit Clerk: Jazlyn Bahgat MD Albumin/Glob Ratio 1.5 Normal 1.0-2.5 [facility] Comment on above: Performed By: #### F EBAshlee, FERI #### [address] [address] Revenue Audit Clerk: Anand Tilley MD #### RETCT #### [facility] [address] [place], [place] 0129083 Revenue Audit Clerk: Jazlyn Bhagat MD Alkaline Phos 259 U/L High 35-104 [facility] Comment on above: Performed By: #### F LUIS FERNANDO, FERI #### [address] [address] Revenue Audit Clerk: Anand Tilley MD #### RETCT #### [address] [place], [place] 6283983 Revenue Audit Clerk: Jazlyn Bhagat MD ALT [Catalytic activity/Vol] 22 U/L Normal 10-35 [facility] Comment on above: Performed By: #### F LUIS FERNANDO, FERI #### [address] [address] Revenue Audit Clerk: Anand Tilley MD #### RETCT #### [address] [place], [place] [phone] Revenue Audit Clerk: Jazlyn Bhagat MD Anion gap [Moles/Vol] 14 mmol/L Normal 9-16 [facility] Comment on above: Performed By: #### F EBC, FERI #### [address] [address] Revenue Audit Clerk: Anand Tilley MD #### RETCT #### [address] [place] [address] Revenue Audit Clerk: Jazlyn Bhagat MD AST [Catalytic activity/Vol] 27 U/L Normal 10-35 [facility] Comment on above: Performed By: #### F LUIS FERNANDO FERI #### [facility] [address] [place] [address] Revenue Audit Clerk: Anand Tilley MD #### RETCT #### [facility] [address] [place] [address] [place] [address] Revenue Audit Clerk: Jazlyn Bhagat MD Bilirubin [Mass/Vol] 0.3 mg/dL Normal 0.00-1.20 [facility] [place] Comment on above: Performed By: #### F LUIS FERNANDO FERI #### [address] [address] Revenue Audit Clerk: Anand Tilley MD #### RETCT #### [address] [place], [place] 5619183 Revenue Audit Clerk: Jazlyn Bhagat MD BUN/CRE Ratio 21 High 9-20 [facility] Comment on above: Performed By: #### F LUIS FERNANDO FERI #### [address] [address] Revenue Audit Clerk: Anand Tilley MD #### RETCT #### [address] [place] [phone] Revenue Audit Clerk: Jazlyn Bhagat MD Calcium [Mass/Vol] 6.4 mg/dL Low 8.6-10.4 [facility] Comment on above: Performed By: #### F LUIS FERNANDO FERI #### [address] [address] Revenue Audit Clerk: Anand Tilley MD #### RETCT #### [address] [place], [place] [phone] Revenue Audit Clerk: Jazlyn Bhagat MD Chloride [Moles/Vol] 107 mmol/L Normal 98-107 [facility] [place] Comment on above: Performed By: #### F NOÉ GOULDI #### [facility] [address] [place] [address] Revenue Audit Clerk: Anand Tilley MD #### RETCT #### [facility] [address] [place] [address] Revenue Audit Clerk: Jazlyn Bhagat MD CO2 [Moles/Vol] 14 mmol/L Low 20-31 [facility] Comment on above: Performed By: #### F TASHI GOULD #### [facility] [address] [place] [address] Revenue Audit Clerk: Anadn Tilley MD #### RETCT #### [facility] [address] [place] [address] Revenue Audit Clerk: Jazlyn Bhagat MD Creatinine [Mass/Vol] 3.0 mg/dL High 0.50-0.90 [facility] Comment on above: Performed By: #### F TASHI GOULD #### [facility] [address] [place], [place] [phone] Revenue Audit Clerk: Anand Tilley MD #### RETCT #### [facility] [address] [place] [address] Revenue Audit Clerk: Jazlyn Bhagat MD GFR/1.73 sq M.predicted among non-blacks MDRD (S/P/Bld) [Vol rate/Area] 15 mL/min/{1.73_m2} Low >60 [facility] Comment on above: Result Comment: These results are not intended for [...] following therapy that affects renal tubular secretion. Performed By: #### F LUIS FERNANDO FERI #### [facility] [address] [place] [address] Revenue Audit Clerk: Anand Tilley MD #### RETCT #### [address] [place], [place] [phone] Revenue Audit Clerk: Jazlyn Bhagat MD Glucose [Mass/Vol] 84 mg/dL Normal 74-99 [facility] Comment on above: Performed By: #### F LUIS FERNANDO FERI #### [address] [address] Revenue Audit Clerk: Anand Tilley MD #### RETCT #### [address] [place], [place] 9457983 Revenue Audit Clerk: Jazlyn Bhagat MD Potassium [Moles/Vol] 5.1 mmol/L Normal 3.7-5.3 [facility] Comment on above: Result Comment: Spec imen hemolysis has exceeded the interference as defined by Grant. Value may be falsely increased. Suggest recollection if clinically indicated. Performed By: #### F LUIS FERNANDO FERI #### [address] [address] Revenue Audit Clerk: Anand Tilley MD #### RETCT #### [address] [place], [place] [id number] Revenue Audit Clerk: Jazlyn Bhagat MD Protein [Mass/Vol] 5.3 g/dL Low 6.6-8.7 [facility] Comment on above: Performed By: #### F LUIS FERNANDO FERI #### [address] [address] Revenue Audit Clerk: Anand Tilley MD #### RETCT #### [address] [place], [place] [phone] Revenue Audit Clerk: Jazlyn Bhagat MD Sodium [Moles/Vol] 135 mmol/L Low 136-145 [facility] Comment on above: Performed By: #### F EBC, FERI #### [facility] [address] [place], [place] [phone] Revenue Audit Clerk: Anand Tilley MD #### RETCT #### [facility] [address] [place], [place] [phone] Revenue Audit Clerk: Jazlyn Bhagat MD Urea nitrogen [Mass/Vol] 62 mg/dL High 8-23 [facility] Comment on above: Performed By: #### F EBC, FERI #### [facility] [address] [place], [place] [phone] Revenue Audit Clerk: Anand Tilley MD #### RETCT #### [facility] [address] [place] [address] Revenue Audit Clerk: Jazlyn Bhagat MD Comprehensive Metabolic Pane l w/ Reflex to MGon 05-30-2025 Albumin [Mass/Vol] 3.2 g/dL Low 3.5 - 5.2 g/dL [facility] Albumin/Globulin [Mass ratio] 1.5 {ratio} 1.0 - 2.5 [facility] ALP [Catalytic activity/Vol] 259 U/L High 35 - 104 U/L [facility] ALT [Catalytic activity/Vol] 22 U/L 10 - 35 U/L [facility] Anion gap [Moles/Vol] 14 mmol/L 9 - 16 mmol/L [facility] AST [Catalytic activity/Vol] 27 U/L 10 - 35 U/L [facility] Bilirubin [Mass/Vol] 0.3 mg/dL 0.00 - 1.20 mg/ dL [facility] Calcium [Mass/Vol] 6.4 mg/dL Low 8.6 - 10.4 mg/dL [facility] Chloride [Moles/Vol] 107 mmol/L 98 - 107 mmol/L [facility] CO2 [Moles/Vol] 14 mmol/L Low 20 - 31 mmol/L [facility] Creatinine [Mass/Vol] 3.0 mg/dL High 0.50 - 0.90 mg/dL [facility] Est, Glom Filt Rate 15 Low - PINF [facility] Comment on above: These results are not intended for use [...] following therapy that affects renal tubular secretion. Glucose [Mass/Vol] 84 mg/dL 74 - 99 mg/dL [facility] CampusSt[facility] [employer] Interpretation and review of laboratory results Abnormal [facility] Potassium [Moles/Vol] 5.1 mmol/L 3.7 - 5.3 mmol/L [facility] [employer] Comment on above: Specimen hemolysis h as exceeded the interference as defined by Grant. Value may be falsely increased. Suggest recollection if clinically indicated. Protein [Mass/Vol] 5.3 g/dL Low 6.6 - 8.7 g/dL [facility] Sodium [Moles/Vol] 135 mmol/L Low 136 - 145 mmol/L [facility] Urea nitrogen [Mass/Vol] 62 mg/dL High 8 - 23 mg/dL [facility] [employer] Urea nitrogen/Creatinine [Mass ratio] 21 mg/mg High 9 - 20 [facility] Hospital[facility] CampusGiv.to [facility] Basic Metabolic Panelon 06-2 Anion gap [Moles/Vol] 15 mmol/L 9 - 16 mmol/L [facility] HospitalIn[facility] [employer] Calcium [Mass/Vol] 6.7 mg/dL Low 8.6 - 10.4 mg/dL [facility] HospitalPic[facility] CampusGiv.to [facility] Chloride [Moles/Vol] 105 mmol/L 98 - 107 mmol/L [facility] CO2 [Moles/Vol] 17 mmol/L Low 20 - 31 mmol/L [facility] Creatinine [Mass/Vol] 2.9 mg/dL High 0.50 - 0.90 mg/dL [facility] HospitalPic[facility] CampusSt[facility] Est, Glom Filt Rate 16 Low - PINF [facility] Comment on above: These results are not intended for use [...] following therapy that affects renal tubular secretion. Glucose [Mass/Vol] 100 mg/dL High 74 - 99 mg/dL [facility] Interpretation and review of laboratory results Abnormal [facility] Potassium [Moles/Vol] 5.3 mmol/L 3.7 - 5.3 mmol/L [facility] Sodium [Moles/Vol] 137 mmol/L 136 - 145 mmol/L [facility] Urea nitrogen [Mass/Vol] 57 mg/dL High 8 - 23 mg/dL [facility] Urea nitrogen/Creatinine [Mass ratio] 20 mg/mg - [facility] Basic Metabolic Profon 05-29 Anion gap [Moles/Vol] 15 mmol/L Normal - [facility] Comment on above: Performed By: #### T ROPI, CLARK, CDP, MG #### [facility] [address] [place] [address] [place] [address] Revenue Audit Clerk: Jazlyn Bhagat MD #### PTHNCA #### [address] [place] [address] Revenue Audit Clerk: Anand Tilley MD BUN/CRE Ratio 20 Normal - [facility] Comment on above: Performed By: #### T ROPI, CLARK, CDP, MG #### [facility] [address] [place] [address] [place] [address] Revenue Audit Clerk: Jazlyn Bhagat MD #### PTHNCA #### [facility] [address] [place], [place] [phone] Revenue Audit Clerk: Anand Tilley MD Calcium [Mass/Vol] 6.7 mg/dL Low 8.6-10.4 [facility] Comment on above: Performed By: #### T ROPI, CLARK, CDP, MG #### [facility] [address] [place] [address] Revenue Audit Clerk: Jazlyn Bhagat MD #### PTHNCA #### [address] [place], [place] [phone] Revenue Audit Clerk: Anand Tilley MD Chloride [Moles/Vol] 105 mmol/L Normal 98-107 [facility] Comment on above: Performed By: #### T ROPI, CLARK, CDP, MG #### [facility] [address] [place] [address] Revenue Audit Clerk: Jazlyn Bhagat MD #### PTHNCA #### [address] [place], [place] [phone] Revenue Audit Clerk: Anand Tilley MD CO2 [Moles/Vol] 17 mmol/L Low 20-31 [facility] Comment on above: Performed By: #### T ROPI, CLARK, CDP, MG #### [facility] [address] [place] [address] Revenue Audit Clerk: Jazlyn Bhagat MD #### PTHNCA #### [address] [place], [place] [phone] Revenue Audit Clerk: Anand Tilley MD Creatinine [Mass/Vol] 2.9 mg/dL High 0.50-0.90 [facility] Comment on above: Performed By: #### T ROPI, CLARK, CDP, MG #### [facility] [address] [place] [address] Revenue Audit Clerk: Jazlyn Bhagat MD #### PTHNCA #### [address] [address] [place], [place] [phone] Revenue Audit Clerk: Anand Tilley MD GFR/1.73 sq M.predicted among non-blacks MDRD (S/P/Bld) [Vol rate/Area] 16 mL/min/{1.73_m2} Low >60 [facility] Comment on above: Result Comment: These results are not intended for [...] following therapy that affects renal tubular secretion. Performed By: #### T ROPI, CLARK, CDP, MG #### [facility] [address] [place] [address] Revenue Audit Clerk: Jazlyn Bhagat MD #### PTHNCA #### [address] [address] Revenue Audit Clerk: Anand Tilley MD Glucose [Mass/Vol] 100 mg/dL High 74-99 [facility] Comment on above: Performed By: #### T ROPI, CLARK, CDP, MG #### [facility] [address] [place] [address] Revenue Audit Clerk: Jazlyn Bhagat MD #### PTHNCA #### [address] [phone] Revenue Audit Clerk: Anand Tilley MD Potassium [Moles/Vol] 5.3 mmol/L Normal 3.7-5.3 [facility] Comment on above: Performed By: #### T ROPI, CLARK, CDP, MG #### [facility] [address] [place] [address] Revenue Audit Clerk: Jazlyn Bhagat MD #### PTHNCA #### [address] [address] Revenue Audit Clerk: Anand Tilley MD Sodium [Moles/Vol] 137 mmol/L Normal 136-145 [facility] Comment on above: Performed By: #### T ROPI, CLARK, CDP, MG #### [facility] [address] [place] [address] Revenue Audit Clerk: Jazlyn Bhagat MD #### PTHNCA #### [facility] [employer] [address] [place] [address] Revenue Audit Clerk: Anand Tilley MD Urea nitrogen [Mass/Vol] 57 mg/dL High 8-23 [facility] Comment on above: Performed By: #### T ROPI, CLARK, CDP, MG #### [facility] [address] [place] [address] Revenue Audit Clerk: Jazlyn Bhagat MD #### PTHNCA #### [facility] [employer] [address] [place] [address] Revenue Audit Clerk: Anand Tilley MD CBC auto differentialon 05-03 Basophils (Bld) [#/Vol] [facility] Basophils/100 WBC (Bld) 0 % 0 - 2 % [facility] Eosinophils (Bld) [#/Vol] 0.13 10*3/uL [facility] Eosinophils/100 WBC (Bld) 2 % 1 - 4 % [facility] Erythrocyte distribution width (RBC) [Ratio] 12.8 % 11.8 - 14.4 % [facility] Hematocrit (Bld) [Volume fraction] 22.8 % Low 36.3 - 47.1 % [facility] Hemoglobin (Bld) [Mass/Vol] 7.3 g/dL Low 11.9 - 15.1 g/dL [facility] Immature granulocytes (Bld) [#/Vol] [facility] Immature granulocytes/100 WBC (Bld) 0 % 0 [facility] Interpretation and review of laboratory results Abnormal [facility] Lymphocytes/100 WBC (Bld) 14 % Low 24 - 43 % [facility] Lymphocytes/100 WBC (Bld) 0.81 % Low [facility] MCH (RBC) [Entitic mass] 29.8 pg 25.2 - 33.5 pg [facility] MCHC (RBC) [Mass/Vol] 32 g/dL 28.4 - 34.8 g/dL [facility] MCV (RBC) [Entitic vol] 93.1 fL 82.6 - 102.9 fL [facility] Monocytes/100 WBC (Bld) 9 % 3 - 12 % [facility] Monocytes/100 WBC (Bld) 0.51 % [facility] Neutrophils/100 WBC (Bld) 75 % High 36 - 65 % [facility] Nucleated RBC/100 WBC (Bld) [Ratio] 0 % 0.0 per 100 WBC [facility] Platelet mean volume (Bld) [Entitic vol] 10.3 fL 8.1 - 13.5 fL [facility] Platelets (Bld) [#/Vol] 109 10*3/uL Low [facility] RBC (Bld) [#/Vol] 2.45 10*6/uL Low 3.95 - 5.11 m/uL [facility] Segmented neutrophils/100 WBC (Bld) 4.14 % [facility] WBC other (Bld) [#/Vol] 5.6 [facility] CBC with Diffon 05-29-2025 Abs. Basophil <0.03 Normal 0.00-0.20 [facility] Comment on above: Performed By: #### T ROPI, CLARK, CDP, MG #### [facility] [address] [place] [address] [place] [address] Revenue Audit Clerk: Jazlyn Bhagat MD #### PTHNCA #### [facility] [employer] [address] [place] [address] Revenue Audit Clerk: Anand Tilley MD Abs.Imm.Granulocyte <0.03 Normal 0.00-0.30 [facility] Comment on above: Performed By: #### T ROPI, CLARK, CDP, MG #### [facility] [address] [place] [address] [place] [address] Revenue Audit Clerk: Jazlyn Bhagat MD #### PTHNCA #### [facility] [employer] [address] [place] [address] [phone] Revenue Audit Clerk: Anand Tilley MD Abs.Neutrophil (Seg) 4.14 k/uL Normal 1.50-8.10 [facility] Comment on above: Performed By: #### T ROPI, CLARK, CDP, MG #### [facility] [address] [place] [address] [place] [phone] Revenue Audit Clerk: Jazlyn Bhagat MD #### PTHNCA #### [address] [address] Revenue Audit Clerk: Anand Tilley MD Basophils/100 WBC (Bld) 0 % Normal 0-2 [facility] Comment on above: Performed By: #### T ROPI, CLARK, CDP, MG #### [facility] [address] [place] [address] [place] [phone] Revenue Audit Clerk: Jazlyn Bhagat MD #### PTHNCA #### [place] [address] Revenue Audit Clerk: Anand Tilley MD Eosinophils (Bld) [#/Vol] 0.13 10*3/uL Normal 0.00-0.44 [facility] Comment on above: Performed By: #### T ROPI, CLARK, CDP, MG #### [address] [place] [phone] Revenue Audit Clerk: Jazlyn Bhagat MD #### PTHNCA #### [address] [address] Revenue Audit Clerk: Anand Tilley MD Eosinophils/100 WBC (Bld) 2 % Normal 1-4 [facility] Comment on above: Performed By: #### T ROPI, CLARK, CDP, MG #### [address] [place] [phone] Revenue Audit Clerk: Jazlyn Bhagat MD #### PTHNCA #### [address], [place] [phone] Revenue Audit Clerk: Anand Tilley MD Erythrocyte distribution width (RBC) [Ratio] 12.8 % Normal 11.8-14.4 [facility] Comment on above: Performed By: #### T ROPI, CLARK, CDP, MG #### [address] [place] [phone] Revenue Audit Clerk: Jazlyn Bhagat MD #### PTHNCA #### [address] [phone] Revenue Audit Clerk: Anand Tilley MD Hematocrit (Bld) [Volume fraction] 22.8 % Low 36.3-47.1 [facility] Comment on above: Performed By: #### T ROPI, CLARK, CDP, MG #### [address] [place] [phone] Revenue Audit Clerk: Jazlyn Bhagat MD #### PTHNCA #### [address] [phone] Revenue Audit Clerk: Anand Tilley MD Hemoglobin (Bld) [Mass/Vol] 7.3 g/dL Low 11.9-15.1 [facility] Comment on above: Performed By: #### T ROPI, CLARK, CDP, MG #### [address] [place] [phone] Revenue Audit Clerk: Jazlyn Bhagat MD #### PTHNCA #### [address] [phone] Revenue Audit Clerk: Anand Tilley MD Immature granulocytes/100 WBC (Bld) 0 % Normal 0 [facility] Comment on above: Performed By: #### T ROPI, CLARK, CDP, MG #### [address] [place] [phone] Revenue Audit Clerk: Jazlyn Bhagat MD #### PTHNCA #### [address] [address] [place], [place] 1270108 Revenue Audit Clerk: Anand Tilley MD Lymphocytes (Bld) [#/Vol] 0.81 10*3/uL Low 1.10-3.70 [facility] Comment on above: Performed By: #### T ROPI, CLARK, CDP, MG #### [facility] [address] [place] [phone] Revenue Audit Clerk: Jazlyn Bhagat MD #### PTHNCA #### [address] [phone] Revenue Audit Clerk: Anand Tilley MD Lymphocytes/100 WBC (Bld) 14 % Low 24-43 [facility] Comment on above: Performed By: #### T ROPI, CLARK, CDP, MG #### [facility] [address] [place] [address] [place]. [place] [phone] Revenue Audit Clerk: Jazlyn Bhagat MD #### PTHNCA #### [place] [address] Revenue Audit Clerk: Anand Tilley MD MCH (RBC) [Entitic mass] 29.8 pg Normal 25.2-33.5 [facility] Comment on above: Performed By: #### T ROPI, CLARK, CDP, MG #### [facility] [address] [place] [address] [place]. [place] [phone] Revenue Audit Clerk: Jazlyn Bhagat MD #### PTHNCA #### [address] [phone] Revenue Audit Clerk: Anand Tilley MD MCHC (RBC) [Mass/Vol] 32.0 g/dL Normal 28.4-34.8 [facility] Comment on above: Performed By: #### T ROPI, CLARK, CDP, MG #### [facility] [address] [place] [address] Revenue Audit Clerk: Jazlyn Bhagat MD #### PTHNCA #### [address] [address] Revenue Audit Clerk: Anand Tilley MD MCV (RBC) [Entitic vol] 93.1 fL Normal 82.6-102.9 [facility] Comment on above: Performed By: #### T ROPI, CLARK, CDP, MG #### [address] [place] [address] Revenue Audit Clerk: Jazlyn Bhagat MD #### PTHNCA #### [address] [address] Revenue Audit Clerk: Anand Tilley MD Monocytes (Bld) [#/Vol] 0.51 10*3/uL Normal 0.10-1.20 [facility] Comment on above: Performed By: #### T ROPI, CLARK, CDP, MG #### [address] [place] [address] Revenue Audit Clerk: Jazlyn Bhagat MD #### PTHNCA #### [place] [address] Revenue Audit Clerk: Anand Tilley MD Monocytes/100 WBC (Bld) 9 % Normal 3-12 [facility] Comment on above: Performed By: #### T ROPI, CLARK, CDP, MG #### [address] [place] [phone] ( Revenue Audit Clerk: Jazlyn Bhagat MD #### PTHNCA #### [address] [address] Revenue Audit Clerk: Anand Tilley MD Neutrophil (Seg) 75 % High 36-65 [facility] Comment on above: Performed By: #### T ROPI, CLARK, CDP, MG #### [address] [place] [phone] ( Revenue Audit Clerk: Jazlyn Bhagat MD #### PTHNCA #### [address] [address] Revenue Audit Clerk: Anand Tilley MD NRBC Automated 0.0 per 100 WBC Normal 0.0 [facility] Comment on above: Performed By: #### T ROPI, CLARK, CDP, MG #### [address] [place] [phone] Revenue Audit Clerk: Jazlyn Bhagat MD #### PTHNCA #### [address] [address] Revenue Audit Clerk: Anand Tilley MD Platelet mean volume (Bld) [Entitic vol] 10.3 fL Normal 8.1-13.5 [facility] Comment on above: Performed By: #### T ROPI, CLARK, CDP, MG #### [address] [place] [phone] Revenue Audit Clerk: Jazlyn Bhagat MD #### PTHNCA #### [address] [address] Revenue Audit Clerk: Anand Tilley MD Platelets (Bld) [#/Vol] 109 10*3/uL Low 138-453 [facility] Comment on above: Performed By: #### T ROPI, CLARK, CDP, MG #### [address] [place] [phone] Revenue Audit Clerk: Jazlyn Bhagat MD #### PTHNCA #### [address] [address] Revenue Audit Clerk: Anand Tilley MD RBC (Bld) [#/Vol] 2.45 10*6/uL Low 3.95-5.11 [facility] Comment on above: Performed By: #### T ROPI, CLARK, CDP, MG #### [address] [place] [address] Revenue Audit Clerk: Jazlyn Bhagat MD #### PTHNCA #### [address] [phone] Revenue Audit Clerk: Anand Tilley MD WBC (Bld) [#/Vol] 5.6 10*3/uL Normal 3.5-11.3 [facility] Comment on above: Performed By: #### T ROPI, CLARK, CDP, MG #### [address] [place] [address] Revenue Audit Clerk: Jazlyn Bhagat MD #### PTHNCA #### [address] [address] Revenue Audit Clerk: Anand Tilley MD Comp Metabolic Pr/rfx MGon 0 - Albumin [Mass/Vol] 3.3 g/dL Low 3.5-5.2 [facility] Comment on above: Performed By: #### T ROPI, CLARK, CDP, MG #### [address] [place] [phone] Revenue Audit Clerk: Jazlyn Bhagat MD #### PTHNCA #### [address] [address] Revenue Audit Clerk: Anand Tilley MD Albumin/Glob Ratio 1.6 Normal 1.0-2.5 [facility] Comment on above: Performed By: #### T ROPI, CLARK, CDP, MG #### [address] [place] [address] Revenue Audit Clerk: Jazlyn Bhagat MD #### PTHNCA #### [address] [phone] Revenue Audit Clerk: Anand Tilley MD Alkaline Phos 267 U/L High 35-104 [facility] Comment on above: Performed By: #### T ROPI, CLARK, CDP, MG #### [address] [place], [place] [phone] Revenue Audit Clerk: Jazlyn Bhagat MD #### PTHNCA #### [address] [place], [place] [phone] Revenue Audit Clerk: Anand Tilley MD ALT [Catalytic activity/Vol] 25 U/L Normal 10-35 [facility] Comment on above: Performed By: #### T ROPI, CLARK, CDP, MG #### [facility] [address] [place] [address] Dr. [place], [place] [phone] Revenue Audit Clerk: Jazlyn Bhagat MD #### PTHNCA #### [address] [phone] Revenue Audit Clerk: Anand Tilley MD Anion gap [Moles/Vol] 13 mmol/L Normal 9-16 [facility] Comment on above: Performed By: #### T ROPI, CLARK, CDP, MG #### [address] [place], [place] [phone] Revenue Audit Clerk: Jazlyn Bhagat MD #### PTHNCA #### [address] [phone] Revenue Audit Clerk: Anand Tilley MD AST [Catalytic activity/Vol] 29 U/L Normal 10-35 [facility] Comment on above: Performed By: #### T ROPI, CLARK, CDP, MG #### [address] [place], [place] [phone] Revenue Audit Clerk: Jazlyn Bhagat MD #### PTHNCA #### [address] [phone] Revenue Audit Clerk: Anand Tilley MD Bilirubin [Mass/Vol] 0.3 mg/dL Normal 0.00-1.20 [facility] [place] Comment on above: Performed By: #### T ROPI, CLARK, CDP, MG #### [address] [place] [phone] Revenue Audit Clerk: Jazlyn Bhagat MD #### PTHNCA #### [address] [address] Revenue Audit Clerk: Anand Tilley MD BUN/CRE Ratio 19 Normal 9-20 [facility] Comment on above: Performed By: #### T ROPI, CLARK, CDP, MG #### [facility] [address] [place] [address] [address]. [place] [phone] Revenue Audit Clerk: Jazlyn Bhagat MD #### PTHNCA #### [address] [address] Revenue Audit Clerk: Anand Tilley MD Calcium [Mass/Vol] 6.3 mg/dL Low 8.6-10.4 [facility] Comment on above: Performed By: #### T ROPI, CLARK, CDP, MG #### [address] [place] [phone] Revenue Audit Clerk: Jazlyn Bhagat MD #### PTHNCA #### [address] [address] Revenue Audit Clerk: Anand Tilley MD Chloride [Moles/Vol] 107 mmol/L Normal 98-107 [facility] [place] Comment on above: Performed By: #### T ROPI, CLARK, CDP, MG #### [facility] [address] [place] [address] [address]. [place] [phone] Revenue Audit Clerk: Jazlyn Bhagat MD #### PTHNCA #### [address] [address] Revenue Audit Clerk: Anand Tilley MD CO2 [Moles/Vol] 16 mmol/L Low 20-31 [facility] Comment on above: Performed By: #### T ROPI, CLARK, CDP, MG #### [address] [place] [phone] Revenue Audit Clerk: Jazlyn Bhagat MD #### PTHNCA #### [address] [place] [place], [place] 2446308 Revenue Audit Clerk: Anand Tilley MD Creatinine [Mass/Vol] 3.0 mg/dL High 0.50-0.90 [facility] Comment on above: Performed By: #### T ROPI, CLARK, CDP, MG #### [facility] [address] [place] [address] [place] [address] Revenue Audit Clerk: Jazlyn Bhagat MD #### PTHNCA #### [address] [place] [address] Revenue Audit Clerk: Anand Tilley MD GFR/1.73 sq M.predicted among non-blacks MDRD (S/P/Bld) [Vol rate/Area] 15 mL/min/{1.73_m2} Low >60 [facility] Comment on above: Result Comment: These results are not intended for [...] following therapy that affects renal tubular secretion. Performed By: #### T ROPI, CLARK, CDP, MG #### [address] [place] [address] Revenue Audit Clerk: Jazlyn Bhagat MD #### PTHNCA #### [place] [address] [place], [place] [phone] Revenue Audit Clerk: Anand Tilley MD Glucose [Mass/Vol] 87 mg/dL Normal 74-99 [facility] Comment on above: Performed By: #### T ROPI, CLARK, CDP, MG #### [address] [place] [address] Revenue Audit Clerk: Jazlyn Bhagat MD #### PTHNCA #### [address] [address] Revenue Audit Clerk: Anand Tilley MD Potassium [Moles/Vol] 5.0 mmol/L Normal 3.7-5.3 [facility] Comment on above: Performed By: #### T ROPI, CLARK, CDP, MG #### [facility] [address] [place] [address] Dr. [place], [place] [phone] Revenue Audit Clerk: Jazlyn Bhagat MD #### PTHNCA #### [address] [address] Revenue Audit Clerk: Anand Tilley MD Protein [Mass/Vol] 5.4 g/dL Low 6.6-8.7 [facility] Comment on above: Performed By: #### T ROPI, CLARK, CDP, MG #### [address] [place] [phone] Revenue Audit Clerk: Jazlyn Bhagat MD #### PTHNCA #### [address] [phone] Revenue Audit Clerk: Anand Tilley MD Sodium [Moles/Vol] 136 mmol/L Normal 136-145 [facility] Comment on above: Performed By: #### T ROPI, CLARK, CDP, MG #### [address] [place] [id number] Revenue Audit Clerk: Jazlyn Bhagat MD #### PTHNCA #### [address] [id number] Revenue Audit Clerk: Anand Tilley MD Urea nitrogen [Mass/Vol] 58 mg/dL High 8-23 [facility] Comment on above: Performed By: #### T ROPI, CLARK, CDP, MG #### [address] [place] [address] Revenue Audit Clerk: Jazlyn Bhagat MD #### PTHNCA #### [facility] [address] [place] [address] Revenue Audit Clerk: Anand Tilley MD Comprehensive Metabolic Pane l w/ Reflex to on 05-29-2025 Albumin [Mass/Vol] 3.3 g/dL Low 3.5 - 5.2 g/dL [facility] Albumin/Globulin [Mass ratio] 1.6 {ratio} 1.0 - 2.5 [facility] ALP [Catalytic activity/Vol] 267 U/L High 35 - 104 U/L [facility] ALT [Catalytic activity/Vol] 25 U/L 10 - 35 U/L [facility] Anion gap [Moles/Vol] 13 mmol/L 9 - 16 mmol/L [facility] AST [Catalytic activity/Vol] 29 U/L 10 - 35 U/L [facility] Bilirubin [Mass/Vol] 0.3 mg/dL 0.00 - 1.20 mg/ dL [facility] Calcium [Mass/Vol] 6.3 mg/dL Low 8.6 - 10.4 mg/dL [facility] Chloride [Moles/Vol] 107 mmol/L 98 - 107 mmol/L [facility] CO2 [Moles/Vol] 16 mmol/L Low 20 - 31 mmol/L [facility] Creatinine [Mass/Vol] 3.0 mg/dL High 0.50 - 0.90 mg/dL [facility] Est, Glom Filt Rate 15 Low - PINF [facility] Comment on above: These results are not intended for use [...] following therapy that affects renal tubular secretion. Glucose [Mass/Vol] 87 mg/dL 74 - 99 mg/dL [facility] Interpretation and review of laboratory results Abnormal [facility] Potassium [Moles/Vol] 5 mmol/L 3.7 - 5.3 mmol/L [facility] Protein [Mass/Vol] 5.4 g/dL Low 6.6 - 8.7 g/dL [facility] Sodium [Moles/Vol] 136 mmol/L 136 - 145 mmol/L [facility] Urea nitrogen [Mass/Vol] 58 mg/dL High 8 - 23 mg/dL [facility] Urea nitrogen/Creatinine [Mass ratio] 19 mg/mg 9 - 20 [facility] CBC with Auto Differentialon 05-28-2025 Basophils (Bld) [#/Vol] [facility] Basophils/100 WBC (Bld) 0 % 0 - 2 % [facility] Eosinophils (Bld) [#/Vol] 0.09 10*3/uL [facility] Eosinophils/100 WBC (Bld) 1 % 1 - 4 % [facility] Erythrocyte distribution width (RBC) [Ratio] 12.8 % 11.8 - 14.4 % [facility] Hematocrit (Bld) [Volume fraction] 27 % Low 36.3 - 47.1 % [facility] Hemoglobin (Bld) [Mass/Vol] 8.3 g/dL Low 11.9 - 15.1 g/dL [facility] Immature granulocytes (Bld) [#/Vol] 0.04 10*3/uL [facility] Immature granulocytes/100 WBC (Bld) 1 % High 0 [facility] Interpretation and review of laboratory results Abnormal [facility] Lymphocytes/100 WBC (Bld) 12 % Low 24 - 43 % [facility] Lymphocytes/100 WBC (Bld) 0.89 % Low [facility] MCH (RBC) [Entitic mass] 29.2 pg 25.2 - 33.5 pg [facility] MCHC (RBC) [Mass/Vol] 30.7 g/dL 28.4 - 34.8 g/dL [facility] MCV (RBC) [Entitic vol] 95.1 fL 82.6 - 102.9 fL [facility] Monocytes/100 WBC (Bld) 10 % 3 - 12 % [facility] Monocytes/100 WBC (Bld) 0.75 % [facility] Neutrophils/100 WBC (Bld) 76 % High 36 - 65 % [facility] Nucleated RBC/100 WBC (Bld) [Ratio] 0 % 0.0 per 100 WBC [facility] Platelet mean volume (Bld) [Entitic vol] 10.5 fL 8.1 - 13.5 fL [facility] Platelets (Bld) [#/Vol] 124 10*3/uL Low [facility] RBC (Bld) [#/Vol] 2.84 10*6/uL Low 3.95 - 5.11 m/uL [facility] Segmented neutrophils/100 WBC (Bld) 5.56 % [facility] WBC other (Bld) [#/Vol] 7.4 [facility] CBC with Diffon 05-28-2025 Abs. Basophil <0.03 Normal 0.00-0.20 [facility] Comment on above: Performed By: #### F NOÉ GOULDI #### [address] [address] Revenue Audit Clerk: Anand Tilley MD #### RETCT #### [address] [place] [address] Revenue Audit Clerk: Jazlyn Bhagat MD Abs.Imm.Granulocyte 0.04 k/uL Normal 0.00-0.30 [facility] Comment on above: Performed By: #### F LUIS FERNANDO FERI #### [place] [address] [place] [address] Revenue Audit Clerk: Anand Tilley MD #### RETCT #### [facility] [address] [place] [address] [place] [address] Revenue Audit Clerk: Jazlyn Bhagat MD Abs.Neutrophil (Seg) 5.56 k/uL Normal 1.50-8.10 [facility] [place] Comment on above: Performed By: #### F EBAshlee FERI #### [address] [address] Revenue Audit Clerk: Anand Tilley MD #### RETCT #### [facility] [address] [place] [address] Revenue Audit Clerk: Jazlyn Bhagat MD Basophils/100 WBC (Bld) 0 % Normal 0-2 [facility] Comment on above: Performed By: #### F EBC, FERI #### [address] [address] Revenue Audit Clerk: Anand Tilley MD #### RETCT #### [facility] [address] [place] [phone] Revenue Audit Clerk: Jazlyn Bhagat MD Eosinophils (Bld) [#/Vol] 0.09 10*3/uL Normal 0.00-0.44 [facility] Comment on above: Performed By: #### F EBAshlee, FERI #### [address] [address] Revenue Audit Clerk: Anand Tilley MD #### RETCT #### [address] [place] [phone] Revenue Audit Clerk: Jazlyn Bhagat MD Eosinophils/100 WBC (Bld) 1 % Normal 1-4 [facility] Comment on above: Performed By: #### F EBAshlee, FERI #### [address] [address] Revenue Audit Clerk: Anand Tilley MD #### RETCT #### [facility] [address] [place] [address] [place] [address] Revenue Audit Clerk: Jazlyn Bhagat MD Erythrocyte distribution width (RBC) [Ratio] 12.8 % Normal 11.8-14.4 [facility] Comment on above: Performed By: #### F EBC, FERI #### [address] [address] Revenue Audit Clerk: Anand Tilley MD #### RETCT #### [facility] [address] [place] [address] Revenue Audit Clerk: Jazlyn Bhagat MD Hematocrit (Bld) [Volume fraction] 27.0 % Low 36.3-47.1 [facility] Comment on above: Performed By: #### F EBC, FERI #### [address] [address] Revenue Audit Clerk: Anand Tilley MD #### RETCT #### [facility] [address] [place] [address] Dr. [place] [phone] Revenue Audit Clerk: Jazlyn Bhagat MD Hemoglobin (Bld) [Mass/Vol] 8.3 g/dL Low 11.9-15.1 [facility] Comment on above: Performed By: #### F EBC, FERI #### [place] [address] Revenue Audit Clerk: Anand Tilley MD #### RETCT #### [facility] [address] [place] [address] Dr. [place] [phone] ( Revenue Audit Clerk: Jazlyn Bhagat MD Immature granulocytes/100 WBC (Bld) 1 % High 0 [facility] Comment on above: Performed By: #### F EBC, FERI #### [place] [address] Revenue Audit Clerk: Anand Tilley MD #### RETCT #### [facility] [address] [place] [address] Dr. [place] [phone] Revenue Audit Clerk: Jazlyn Bhagat MD Lymphocytes (Bld) [#/Vol] 0.89 10*3/uL Low 1.10-3.70 [facility] Comment on above: Performed By: #### F EBC, FERI #### [address] [phone] Revenue Audit Clerk: Anand Tilley MD #### RETCT #### [facility] [address] [place] [address] Revenue Audit Clerk: Jazlyn Bhagat MD Lymphocytes/100 WBC (Bld) 12 % Low 24-43 [facility] Comment on above: Performed By: #### F EBC, FERI #### [address] [phone] Revenue Audit Clerk: Anand Tilley MD #### RETCT #### [facility] [address] [place] [address] Revenue Audit Clerk: Jazlyn Bhagat MD MCH (RBC) [Entitic mass] 29.2 pg Normal 25.2-33.5 [facility] Comment on above: Performed By: #### F EBC, FERI #### [address] [phone] Revenue Audit Clerk: Anand Tilley MD #### RETCT #### [facility] [address] [place] [address] Revenue Audit Clerk: Jazlyn Bhagat MD MCHC (RBC) [Mass/Vol] 30.7 g/dL Normal 28.4-34.8 [facility] Comment on above: Performed By: #### F EBC, FERI #### [address] [address] Revenue Audit Clerk: Anand Tilley MD #### RETCT #### [facility] [address] [place], [place] [phone] Revenue Audit Clerk: Jazlyn Bhagat MD MCV (RBC) [Entitic vol] 95.1 fL Normal 82.6-102.9 [facility] Comment on above: Performed By: #### F EBC, FERI #### [address] [phone] Revenue Audit Clerk: Anand Tilley MD #### RETCT #### [facility] [address] [place] [address] Revenue Audit Clerk: Jazlyn Bhagat MD Monocytes (Bld) [#/Vol] 0.75 10*3/uL Normal 0.10-1.20 [facility] Comment on above: Performed By: #### F EBC, FERI #### [address] [address] Revenue Audit Clerk: Anand Tilley MD #### RETCT #### [address] [place], [place] 1934883 Revenue Audit Clerk: Jazlyn Bhagat MD Monocytes/100 WBC (Bld) 10 % Normal 3-12 [facility] Comment on above: Performed By: #### F EBC, FERI #### [address] [address] Revenue Audit Clerk: Anand Tilley MD #### RETCT #### [address] [place], [place] [phone] Revenue Audit Clerk: Jazlyn Bhagat MD Neutrophil (Seg) 76 % High 36-65 [facility] Comment on above: Performed By: #### F EBC, FERI #### [address] [address] Revenue Audit Clerk: Anand Tilley MD #### RETCT #### [address] [place], [place] [phone] Revenue Audit Clerk: Jazlyn Bhagat MD NRBC Automated 0.0 per 100 WBC Normal 0.0 [facility] Comment on above: Performed By: #### F EBC, FERI #### [address] [address] Revenue Audit Clerk: Anand Tilley MD #### RETCT #### [address] [place] [address] Revenue Audit Clerk: Jazlyn Bhagat MD Platelet mean volume (Bld) [Entitic vol] 10.5 fL Normal 8.1-13.5 [facility] Comment on above: Performed By: #### F EBC, FERI #### [place] [address] [place] [address] Revenue Audit Clerk: Anand Tilley MD #### RETCT #### [address] [place] [phone] Revenue Audit Clerk: Jazlyn Bhagat MD Platelets (Bld) [#/Vol] 124 10*3/uL Low 138-453 [facility] Comment on above: Performed By: #### F EBAshlee, FERI #### [address] [address] Revenue Audit Clerk: Anand Tilley MD #### RETCT #### [address] [place] [phone] Revenue Audit Clerk: Jazlyn Bhagat MD RBC (Bld) [#/Vol] 2.84 10*6/uL Low 3.95-5.11 [facility] Comment on above: Performed By: #### F EBC, FERI #### [address] [address] Revenue Audit Clerk: Anand Tilley MD #### RETCT #### [address] [place] [phone] Revenue Audit Clerk: Jazlyn Bhagat MD WBC (Bld) [#/Vol] 7.4 10*3/uL Normal 3.5-11.3 [facility] Comment on above: Performed By: #### F EBC, FERI #### [address] [address] Revenue Audit Clerk: Anand Tilley MD #### RETCT #### [address] [place] [address] Revenue Audit Clerk: Jazlyn Bhagat MD [facility] 05-28-2025 Albumin [Mass/Vol] 3.8 g/dL 3.5 - 5.2 g/dL [facility] [employer] Albumin/Globulin [Mass ratio] 1.5 {ratio} 1.0 - 2.5 [facility] ALP [Catalytic activity/Vol] 303 U/L High 35 - 104 U/L [facility] ALT [Catalytic activity/Vol] 29 U/L 10 - 35 U/L [facility] Anion gap [Moles/Vol] 14 mmol/L 9 - 16 mmol/L [facility] AST [Catalytic activity/Vol] 34 U/L 10 - 35 U/L [facility] Bilirubin [Mass/Vol] 0.4 mg/dL 0.00 - 1.20 mg/ dL [facility] [employer] Calcium [Mass/Vol] 6.7 mg/dL Low 8.6 - 10.4 mg/dL [facility] Chloride [Moles/Vol] 103 mmol/L 98 - 107 mmol/L [facility] [employer] [facility] CO2 [Moles/Vol] 17 mmol/L Low 20 - 31 mmol/L [facility] [employer] [facility] Creatinine [Mass/Vol] 3.2 mg/dL High 0.50 - 0.90 mg/dL [facility] Est, Glom Filt Rate 14 Low - PINF [facility] [employer] [facility] Comment on above: These results are not intended for use [...] following therapy that affects renal tubular secretion. Glucose [Mass/Vol] 117 mg/dL High 74 - 99 mg/dL [facility] [employer] Potassium [Moles/Vol] 5 mmol/L 3.7 - 5.3 mmol/L [facility] Protein [Mass/Vol] 6.3 g/dL Low 6.6 - 8.7 g/dL [employer] Sodium [Moles/Vol] 134 mmol/L Low 136 - 145 mmol/L [facility] Urea nitrogen [Mass/Vol] 52 mg/dL High 8 - 23 mg/dL [facility] Urea nitrogen/Creatinine [Mass ratio] 16 mg/mg 9 - 20 [facility] Comp Metabolic Profon 2024 Albumin [Mass/Vol] 3.8 g/dL Normal 3.5-5.2 [facility] Comment on above: Performed By: #### F EBAshlee FERI #### [facility] [address] [place] [address] Revenue Audit Clerk: Anand Tilley MD #### RETCT #### [address] [place] [address] Revenue Audit Clerk: Jazlyn Bhagat MD Albumin/Glob Ratio 1.5 Normal 1.0-2.5 [facility] Comment on above: Performed By: #### F LUIS FERNANDO FERI #### [place] [address] [place] [address] Revenue Audit Clerk: Anand Tilley MD #### RETCT #### [address] [place] [address] Revenue Audit Clerk: Jazlyn Bhagat MD Alkaline Phos 303 U/L High 35-104 [facility] Comment on above: Performed By: #### F LUIS FERNANDO, FERI #### [facility] [address] [place] [address] Revenue Audit Clerk: Anand Tilley MD #### RETCT #### [facility] [address] [place] [address] [place] [address] Revenue Audit Clerk: Jazlyn Bhagat MD ALT [Catalytic activity/Vol] 29 U/L Normal 10-35 [facility] Comment on above: Performed By: #### F EBC, FERI #### [place] [address] [place] [address] Revenue Audit Clerk: Anand Tilley MD #### RETCT #### [facility] [address] [place], [place] [phone] Revenue Audit Clerk: Jazlyn Bhagat MD Anion gap [Moles/Vol] 14 mmol/L Normal 9-16 [facility] Comment on above: Performed By: #### F EBC, FERI #### [facility] [address] [place] [address] Revenue Audit Clerk: Anand Tilley MD #### RETCT #### [facility] [address] [place], [place] [phone] Revenue Audit Clerk: Jazlyn Bhagat MD AST [Catalytic activity/Vol] 34 U/L Normal -35 [facility] Comment on above: Performed By: #### F EBC, FERI #### [address] [address] Revenue Audit Clerk: Anand Tilley MD #### RETCT #### [facility] [address] [place], [place] [phone] Revenue Audit Clerk: Jazlyn Bhagat MD Bilirubin [Mass/Vol] 0.4 mg/dL Normal 0.00-1.20 [facility] [place] Comment on above: Performed By: #### F EBC, FERI #### [facility] [address] [place] [address] Revenue Audit Clerk: Anand Tilley MD #### RETCT #### [facility] [address] [place] [address] Dr. [place], [place] [phone] Revenue Audit Clerk: Jazlyn Bhagat MD BUN/CRE Ratio 16 Normal -20 [facility] Comment on above: Performed By: #### F EBC, FERI #### [facility] [address] [place] [address] Revenue Audit Clerk: Anand Tilley MD #### RETCT #### [facility] [address] [place], [place] [phone] Revenue Audit Clerk: Jazlyn Bhagat MD Calcium [Mass/Vol] 6.7 mg/dL Low 8.6-10.4 [facility] Comment on above: Performed By: #### F EBC, FERI #### [address] [address] Revenue Audit Clerk: Anand Tilley MD #### RETCT #### [address] [place], [place] [phone] Revenue Audit Clerk: Jazlyn Bhagat MD Chloride [Moles/Vol] 103 mmol/L Normal 98-107 [facility] [place] Comment on above: Performed By: #### F LUIS FERNANDO, FERI #### [address] [address] Revenue Audit Clerk: Anand Tilley MD #### RETCT #### [address] [place], [place] [phone] Revenue Audit Clerk: Jazlyn Bhagat MD CO2 [Moles/Vol] 17 mmol/L Low 20-31 [facility] Comment on above: Performed By: #### F LUIS FERNANDO, FERI #### [address] [address] Revenue Audit Clerk: Anand Tilley MD #### RETCT #### [address] [place], [place] [phone] Revenue Audit Clerk: Jazlyn Bhagat MD Creatinine [Mass/Vol] 3.2 mg/dL High 0.50-0.90 [facility] Comment on above: Performed By: #### F EBC, FERI #### [address] [address] Revenue Audit Clerk: Anand Tilley MD #### RETCT #### [address] [place], [place] [phone] Revenue Audit Clerk: Jazlyn Bhagat MD GFR/1.73 sq M.predicted among non-blacks MDRD (S/P/Bld) [Vol rate/Area] 14 mL/min/{1.73_m2} Low >60 [facility] Comment on above: Result Comment: These results are not intended for [...] following therapy that affects renal tubular secretion. Performed By: #### F TASHI GOULD #### [address] [phone] Revenue Audit Clerk: Anand Tilley MD #### RETCT #### [facility] [address] [place] [address] [place] [address] Revenue Audit Clerk: Jazlyn Bhagat MD Glucose [Mass/Vol] 117 mg/dL High 74-99 [facility] Comment on above: Performed By: #### F TASHI GOULD #### [address] [address] Revenue Audit Clerk: Anand Tilley MD #### RETCT #### [address] [place] [address] Revenue Audit Clerk: Jazlyn Bhagat MD Potassium [Moles/Vol] 5.0 mmol/L Normal 3.7-5.3 [facility] Comment on above: Performed By: #### F TASHI GOULD #### [address] [address] Revenue Audit Clerk: Anand Tilley MD #### RETCT #### [facility] [address] [place] [address] [place] [address] Revenue Audit Clerk: Jazlyn Bhagat MD Protein [Mass/Vol] 6.3 g/dL Low 6.6-8.7 [facility] Comment on above: Performed By: #### F LUIS FERNANDO, FERI #### [facility] [address] [place] [address] Revenue Audit Clerk: Anand Tilley MD #### RETCT #### [facility] [address] [place] [address] Dr. [place], [place] [phone] Revenue Audit Clerk: Jazlyn Bhagat MD Sodium [Moles/Vol] 134 mmol/L Low 136-145 [facility] Comment on above: Performed By: #### F LUSI FERNANDO FERI #### [place] [address] [place] [address] Revenue Audit Clerk: Anand Tilley MD #### RETCT #### [facility] [address] [place] [address] Dr. [place], [place] [phone] Revenue Audit Clerk: Jazlyn Bhagat MD Urea nitrogen [Mass/Vol] 52 mg/dL High 8-23 [facility] Comment on above: Performed By: #### F LUIS FERNANDO FERI #### [facility] [address] [place] [address] Revenue Audit Clerk: Anand Tilley MD #### RETCT #### [address] [place], [place] [phone] Revenue Audit Clerk: Jazlyn Bhagat MD Lipaseon 05-28-2025 Lipase [Catalytic activity/Vol] 61 U/L High 13 - 60 U/L [facility] Lipase [Catalytic activity/Vol] 61 U/L High 13-60 [facility] Comment on above: Performed By: #### F LUIS FERNANDO FERI #### [facility] [address] [place] [address] Revenue Audit Clerk: Annad Tilley MD #### RETCT #### [facility] [address] [place] [address] Dr. [place], [place] [phone] Revenue Audit Clerk: Jazlyn Bhagat MD Magnesiumon 05-28-2025 Magnesium [Mass/Vol] 1.3 mg/dL Low 1.6 - 2.4 mg/dL [facility] Magnesium [Mass/Vol] 1.3 mg/dL Low 1.6-2.4 [facility] [place] Comment on above: Performed By: #### F EBAshlee TASHI #### [facility] [address] [place], [place] [phone] Revenue Audit Clerk: Anand Tilley MD #### RETCT #### [facility] [address] [place] [address] Revenue Audit Clerk: Jazlyn Bhagat MD Microscopic Urinalysison Bacteria LM Ql (Urine sed) TRACE Abnormal None [facility] Epithelial cells LM.HPF (Urine sed) [#/Area] None [facility] Interpretation and review of laboratory results Abnormal [facility] RBC LM.HPF (Urine sed) [#/Area] 0 TO 2 [facility] WBC LM.HPF (Urine sed) [#/Area] 0 TO 2 [facility] No Panel Informationon 05-28 Interpretation and review of laboratory results Abnormal [facility] UA w/Reflex Cultureon 2024 Bilirubin, SemiQt,Ur Negative Normal NEG [facility] [place] Comment on above: Performed By: #### T ROPI, CLARK, CDP, MG #### [facility] [address] [place] [address] [place] [address] Revenue Audit Clerk: Jazlyn Bhagat MD #### PTHNCA #### [facility] [address] [place], [place] 1121008 Revenue Audit Clerk: Anand Tilley MD Blood, Urine TRACE Abnormal NEG [facility] Comment on above: Performed By: #### T ROPI, CLARK, CDP, MG #### [address] [place] [address] Revenue Audit Clerk: Jazlyn Bhagat MD #### PTHNCA #### [address] [address] Revenue Audit Clerk: Anand Tilley MD Clarity (U) Clear Normal CLEAR [facility] Comment on above: Performed By: #### T ROPI, CLARK, CDP, MG #### [facility] [address] [place] [address] Dr. [place], [place] [phone] Revenue Audit Clerk: Jazlyn Bhagat MD #### PTHNCA #### [address] [address] Revenue Audit Clerk: Anand Tilley MD Color (U) Yellow Normal YEL [facility] Comment on above: Performed By: #### T ROPI, CLARK, CDP, MG #### [address] [place], [place] [phone] Revenue Audit Clerk: Jazlyn Bhagat MD #### PTHNCA #### [address] [address] Revenue Audit Clerk: Anand Tilley MD Glucose Ql (U) TRACE Abnormal NEG [facility] Comment on above: Performed By: #### T ROPI, CLARK, CDP, MG #### [address] [place], [place] [phone] Revenue Audit Clerk: Jazlyn Bhagat MD #### PTHNCA #### [address] [address] Revenue Audit Clerk: Anand Tilley MD Ketones Ql (U) Negative Normal NEG [facility] Comment on above: Performed By: #### T ROPI, CLARK, CDP, MG #### [address] [place], [place] [phone] Revenue Audit Clerk: Jazlyn Bhagat MD #### PTHNCA #### [address] [address] Revenue Audit Clerk: Anand Tilley MD Leukocyte esterase Test strip Ql (U) TRACE Abnormal NEG [facility] Comment on above: Performed By: #### T ROPI, CLARK, CDP, MG #### [address] [place] [address] Revenue Audit Clerk: Jazlyn Bhagat MD #### PTHNCA #### [address] [address] Revenue Audit Clerk: Anand Tilley MD Nitrite,Ur Negative Normal NEG [facility] Comment on above: Performed By: #### T ROPI, CLARK, CDP, MG #### [address] [place] [phone] Revenue Audit Clerk: Jazlyn Bhagat MD #### PTHNCA #### [address] [address] Revenue Audit Clerk: Anand Tilley MD PH,Ur 7.0 Normal 5.0-9.0 [facility] Comment on above: Performed By: #### T ROPI, CLARK, CDP, MG #### [address] [place] [phone] Revenue Audit Clerk: Jazlyn Bhagat MD #### PTHNCA #### [address] [address] Revenue Audit Clerk: Anand Tilley MD Protein Ql (U) 1+ mg/dL Abnormal NEG [facility] [facility] Comment on above: Performed By: #### T ROPI, CLARK, CDP, MG #### [address] [place], [place] [id number] Revenue Audit Clerk: Jazlyn Bhagat MD #### PTHNCA #### [address] [address] Revenue Audit Clerk: Anand Tilley MD Spec. Laurel,Ur 1.010 Normal 1.010-1.020 [facility] Comment on above: Performed By: #### T ROPI, CLARK, CDP, MG #### [facility] [address] [place], [place] [id number] Revenue Audit Clerk: Jazlyn Bhagat MD #### PTHNCA #### [facility] [employer] [address] [place], [place] [id number] Revenue Audit Clerk: Anand Tilley MD Urobilinogen,Ur Normal Normal 0.0-1.0 [facility] Comment on above: Performed By: #### T ROPI, CLARK, CDP, MG #### [facility] [address] [place], [place] [address] Revenue Audit Clerk: Jazlyn Bhagat MD #### PTHNCA #### [facility] [address] [place], [place] [phone] Revenue Audit Clerk: Anand Tilley MD US RETROPERITONEAL COMPLETEo n 05-28-2025 US RETROPERITONEAL COMPLETE EXAM: RETROPERITONEAL ULTRASOUND OF THE KIDNEYS AND [...] 3. Simple cysts in the left kidney. Interpreted by: Lucius Salas MD Signed by: Lucius Salas MD 05/28/25 Final result Normal [facility] US Retroperitoneumon 025 1. Moderate right hydronephrosis. 2. Bilateral increased echogenicity of the renal parenchyma compatible with medical renal disease. 3. Simple cysts in the left kidney. [facility] RIS CONSOLIDATED EXAM: RETROPERITONEAL ULTRASOUND OF THE KIDNEYS AND [...] cm. BLADDER: Unremarkable appearance of the bladder. [facility] Lucius Salas MD - 05/28/2025 EXAM: RETROPERITONEAL [...] 3. Simple cysts in the left kidney. [facility] Study observation (narrative) [facility] US RetroperitoneumOrdered By : Lucius Salas on 05-28-2025 [facility] Work Phone: Urinalysis with Reflex to Cu ltureon 05-28-2025 Bilirubin Ql (U) Negative NEGATIVE [facility] [employer] Clarity (U) Clear Clear [facility] Color (U) Yellow Yellow [facility] Glucose Test strip (U) [Mass/Vol] TRACE Abnormal NEGATIVE mg/dL [facility] Hemoglobin Auto test strip Ql (U) TRACE Abnormal NEGATIVE [facility] Interpretation and review of laboratory results Abnormal [facility] Ketones (U) [Mass/Vol] Negative NEGATIVE mg/dL [facility] Leukocyte esterase Test strip Ql (U) TRACE Abnormal NEGATIVE [facility] Nitrite Ql (U) Negative NEGATIVE [facility] pH (U) 7 [pH] 5.0 - 9.0 [facility] Protein (U) [Mass/Vol] 1+ Abnormal NEGATIVE mg/dL [facility] Specific gravity (U) [Rel density] 1.01 1.010 - 1.020 [facility] Urobilinogen Qn (U) Normal 0.0 - 1.0 EU/dL [facility] Urinalysis,Microon 5 Bacteria TRACE Abnormal NONE [facility] Comment on above: Performed By: #### T ROPI, CLARK, CDP, MG #### [facility] [address] [place] [address] [place] [phone] Revenue Audit Clerk: Jazlyn Bhagat MD #### PTHNCA #### [address] [address] Revenue Audit Clerk: Anand Tilley MD Epithelial cells LM Ql (Urine sed) None Normal 0-25 [facility] Comment on above: Performed By: #### T ROPI, CLARK, CDP, MG #### [address] [place] [phone] Revenue Audit Clerk: Jazlyn Bhagat MD #### PTHNCA #### [address] [phone] Revenue Audit Clerk: Anand Tilley MD Urine RBC's 0 TO 2 Normal 0-2 [facility] Comment on above: Performed By: #### T ROPI, CLARK, CDP, MG #### [facility] [address] [place] [address] [place] [address] Revenue Audit Clerk: Jazlyn Bhagat MD #### PTHNCA #### [address] [address] [place], [place] 08[address] Revenue Audit Clerk: Anand Tilley MD Urine WBC's 0 TO 2 Normal 0-5 [facility] Comment on above: Performed By: #### T ROPI, CLARK, CDP, MG #### [facility] [address] [place] [address] Revenue Audit Clerk: Jazlyn Bhagat MD #### PTHNCA #### [facility] [employer] [address] [place] [address] Revenue Audit Clerk: Anand Tilley MD Telephoneon 03-01-2025 Telephone [phone] Sylvia Herrera 1945 Date Provider Department Center 03/01/2025 DENISSE CRUZ JULIAN Hernandez Family History Family history unknown: Yes Normal [facility] CNPNon 02-26-2025 CNPN Normal [facility] Office Visiton 02-05-2025 Follow-up visit [id number] [place] 1945 Provider Department Center 02/05/2025 ANISHA JACOBS JULIAN Hernandez Family History Family history unknown: Yes Level of Service:74947 [place] OFFICE/OUTPATIENT ESTABLISHED MOD MDM 30 MIN Normal [facility] CNPNon 01-26-2025 CNPN Normal [facility] CASE MANAGEMon 01-25-2025 CASE MANAGEM Normal [facility] CBC panel Auto (Bld)on 01-25 Erythrocyte distribution width (RBC) [Ratio] 13.7 % Normal 11.5-15.0 [facility] Comment on above: Order Comment: Speci men Type: BLOOD SPECIMENOrdering Facility: [facility] Address: [address] [place] [address] Performed By: #### 5 8410-2 ####[facility] [id number] [facility] [id number] [address] [place] Hematocrit (Bld) [Volume fraction] 25.5 % Low 36.0-46.0 [facility] Comment on above: Order Comment: Speci men Type: BLOOD SPECIMENOrdering Facility: [facility] Address: [address] [place] [address] Performed By: #### 5 8410-2 ####[facility] LABIA [id number] [place] [address] [place] Hemoglobin (Bld) [Mass/Vol] 8.3 g/dL Low 11.5-15.5 [facility] Comment on above: Order Comment: Speci men Type: BLOOD SPECIMENOrdering Facility: [facility] Address: [address] [place] [address] Performed By: #### 5 8410-2 ####[facility] LABIA [id number] [place] [address] [place] MCH (RBC) [Entitic mass] 29.1 pg Normal 26.0-34.0 [facility] Comment on above: Order Comment: Speci men Type: BLOOD SPECIMENOrdering Facility: [facility] Address: [address] [place] [address] Performed By: #### 5 8410-2 ####[facility] LABIA [id number] [place] [address] [place] MCHC (RBC) [Mass/Vol] 32.5 g/dL Normal 30.5-36.0 [facility] Comment on above: Order Comment: Speci men Type: BLOOD SPECIMENOrdering Facility: [facility] Address: [address] [place] [address] Performed By: #### 5 8410-2 ####[facility] [id number] [place] [address] [place] MCV (RBC) [Entitic vol] 89.5 fL Normal 80.0-100.0 [facility] Comment on above: Order Comment: Speci men Type: BLOOD SPECIMENOrdering Facility: [facility] Address: [address] [place] [address] Performed By: #### 5 8410-2 ####[facility] LABCLIA [id number] [place] [address] [place] Nucleated RBC (Bld) [#/Vol] 10*3/uL Normal <0.01 [facility] Comment on above: Order Comment: Speci men Type: BLOOD SPECIMENOrdering Facility: [facility] Address: [address] [place] [address] Performed By: #### 5 8410-2 ####[facility] LABIA [id number] [place] [address] [place] Platelet mean volume (Bld) [Entitic vol] 10.0 fL Normal 9.0-12.7 [facility] Comment on above: Order Comment: Speci men Type: BLOOD SPECIMENOrdering Facility: [facility] Address: [address] [place] [address] Performed By: #### 5 8410-2 ####[facility] LABIA [id number] [place] [address] [place] Platelets (Bld) [#/Vol] 265 10*3/uL Normal 150-400 [facility] Comment on above: Order Comment: Speci men Type: BLOOD SPECIMENOrdering Facility: [facility] Address: [address] [place] [address] Performed By: #### 5 8410-2 ####[facility] LABIA [id number] [place] [address] [place] RBC (Bld) [#/Vol] 2.85 10*6/uL Low 3.90-5.20 [facility] Comment on above: Order Comment: Speci men Type: BLOOD SPECIMENOrdering Facility: [facility] Address: [address] [place] [address] Performed By: #### 5 8410-2 ####[facility] LABIA [id number] [id number] [address] [place] WBC (Bld) [#/Vol] 7.98 10*3/uL Normal 3.70-11.00 [facility] Comment on above: Order Comment: Speci men Type: BLOOD SPECIMENOrdering Facility: [facility] Address: [address] [place] [address] Performed By: #### 5 8410-2 ####[facility] LABCLIA [id number] [place] [address] [place] CNDSon 01-25-2025 CNDS Normal [facility] CYTOMEGALOVIRUS (CMV) DNA, Q UANTITATIVE PCR, PLASMAon 01-25-2025 CMV DNA ULICES+probe [#/Vol] <35 Normal [facility] Comment on above: Order Comment: Speci men Type: BLOOD SPECIMENOrdering Facility: [facility] Address: [address] [place] [address] Performed By: #### C MVQNT ####[facility] LABCLIA [id number] [place] [address] [place] CMV DNA ULICES+probe [Log #/Vol] <1.54 Normal [facility] Comment on above: Order Comment: Speci men Type: BLOOD SPECIMENOrdering Facility: [facility] Address: [address] [place] [address] Performed By: #### C MVQNT ####[facility] LABCLIA [id number] [place] [address] [place] CMV DNA ULICES+probe Qn (P) Detected Abnormal Not Detected [facility] Comment on above: Order Comment: Speci men Type: BLOOD SPECIMENOrdering Facility: [facility] Address: [address] [place] [address] Performed By: #### C MVQNT ####[facility] LABCLIA [id number] [place] [address] [place] Magnesium SerPl-mCncon 01-25 Magnesium [Mass/Vol] 1.7 mg/dL Normal 1.7-2.3 [facility] Comment on above: Order Comment: Speci men Type: BLOOD SPECIMENOrdering Facility: [facility] Address: [address] [place] [address] Performed By: #### 1 9123-9, 40200-4 ####[facility] LABCLIA [id number] [facility] [place] [address] [place] NURSING PROGon 01-25-2025 NURSING PROG Normal [facility] Renal function 2000 panelon 01-25-2025 Albumin [Mass/Vol] 2.8 g/dL Low 3.9-4.9 [facility] Comment on above: Order Comment: Speci men Type: BLOOD SPECIMENOrdering Facility: [facility] Address: [address] [place] [address] Performed By: #### 1 9123-9, 50568-8 ####[facility] LABCLIA [id number] [place] [address] [place] Anion gap [Moles/Vol] 13 mmol/L Normal 8-15 [facility] Comment on above: Order Comment: Speci men Type: BLOOD SPECIMENOrdering Facility: [facility] Address: [address] [place] [address] Performed By: #### 1 9123-9, 95075-1 ####[facility] LABCLIA [id number] [place] [address] [place] Calcium [Mass/Vol] 7.6 mg/dL Low 8.5-10.2 [facility] Comment on above: Order Comment: Speci men Type: BLOOD SPECIMENOrdering Facility: [facility] Address: [address] [place] [address] Performed By: #### 1 9123-9, 49067-3 ####[facility] LABCLIA [id number] [facility] [place] [address] [place] Chloride [Moles/Vol] 98 mmol/L Normal 98-107 [facility] Comment on above: Order Comment: Speci men Type: BLOOD SPECIMENOrdering Facility: [facility] Address: [address] [place] [address] Performed By: #### 1 9123-9, 09714-5 ####[facility] LABCLIA [id number] [place] [id number] [place] CO2 [Moles/Vol] 22 mmol/L Normal 22-30 [facility] Comment on above: Order Comment: Speci men Type: BLOOD SPECIMENOrdering Facility: [facility] Address: [address] [place] [address] Performed By: #### 1 9123-9, 70198-0 ####[facility] LABCLIA [id number] [place] [address] [place] Creatinine [Mass/Vol] 2.37 mg/dL High 0.58-0.96 [facility] Comment on above: Order Comment: Speci men Type: BLOOD SPECIMENOrdering Facility: [facility] Address: [address] [place] [address] Performed By: #### 1 9123-9, 36810-5 ####[facility] LABIA [id number] [place] [address] [place] Creatinine and Glomerular filtration rate.predicted panel (S/P/Bld) 20 mL/min/1.73m??? Low >=60 [facility] Comment on above: Order Comment: Speci men Type: BLOOD SPECIMENOrdering Facility: [facility] Address: [address] [place] [address] Result Comment: Kelsey mated Glomerular Filtration Rate [...] actual GFR. Performed By: #### 1 9123-9, 83547-5 ####[facility] LABCLIA [id number] [place] [address] [place] Glucose [Mass/Vol] 149 mg/dL High 74-99 [facility] Comment on above: Order Comment: Speci men Type: BLOOD SPECIMENOrdering Facility: [facility] Address: [address] [place] [address] Result Comment: The [place] Diabetes Association (ADA) provides guidance for cutoff [...] Standards of Medical Care in Diabetes 2016, [place] [employer]. Diabetes Care. 2016.39(Suppl 1). Performed By: #### 1 9123-9, 97942-2 ####[facility] LABIA [id number] [place] [address] [place] Phosphate [Mass/Vol] 2.9 mg/dL Normal 2.7-4.8 [facility] Comment on above: Order Comment: Speci men Type: BLOOD SPECIMENOrdering Facility: [facility] Address: [address] [place] [address] Performed By: #### 1 9123-9, 26870-0 ####[facility] LABIA [id number] [place] [address] [place] Potassium [Moles/Vol] 4.8 mmol/L Normal 3.7-5.1 [facility] Comment on above: Order Comment: Speci men Type: BLOOD SPECIMENOrdering Facility: [facility] Address: [address] [place] [address] Performed By: #### 1 9123-9, 91836-8 ####[facility] LABCLIA [id number] [place] [address] [place] Sodium [Moles/Vol] 133 mmol/L Low 136-144 [facility] Comment on above: Order Comment: Speci men Type: BLOOD SPECIMENOrdering Facility: [facility] Address: [address] [place] [address] Performed By: #### 1 9123-9, 37487-1 ####[facility] LABCLIA [id number] [place] [address] [place] Urea nitrogen [Mass/Vol] 53 mg/dL High 7-21 [facility] Comment on above: Order Comment: Speci men Type: BLOOD SPECIMENOrdering Facility: [facility] Address: [address] [place] [address] Performed By: #### 1 9123-9, 57191-2 ####[facility] LABIA [id number] [place] [address] [place] Tacrolimus Bld-ncon 2024 Tacrolimus (Bld) [Mass/Vol] 6.7 ng/mL Normal 5.0-20.0 [facility] Comment on above: Order Comment: Víctor friend Type: BLOOD SPECIMENOrdering Facility: [facility] Address: [address] [place] [address] Result Comment: Ema vidualized target levels for [...] situation. Test performed by chemiluminescent immunoassay using salgomed Alinity i. Performed By: #### 1 1253-2 ####[facility] LABIA [id number] [place] [address] [place] CBC panel Auto (Bld)on 01-24 Erythrocyte distribution width (RBC) [Ratio] 13.7 % Normal 11.5-15.0 [facility] Comment on above: Order Comment: Speci men Type: BLOOD SPECIMENOrdering Facility: [facility] Address: [address] [place] [address] Performed By: #### 5 8410-2 ####[facility] LABCLIA [id number] [place] [address] [place] Hematocrit (Bld) [Volume fraction] 22.3 % Low 36.0-46.0 [facility] Comment on above: Order Comment: Speci men Type: BLOOD SPECIMENOrdering Facility: [facility] Address: [address] [place] [address] Performed By: #### 5 8410-2 ####[facility] LABCLIA [id number] [address] [place] Hemoglobin (Bld) [Mass/Vol] 7.2 g/dL Low 11.5-15.5 [facility] Comment on above: Order Comment: Speci men Type: BLOOD SPECIMENOrdering Facility: [facility] Address: [address] [place] [address] Performed By: #### 5 8410-2 ####[facility] LABIA [id number] [place] [address] [place] MCH (RBC) [Entitic mass] 29.8 pg Normal 26.0-34.0 [facility] Comment on above: Order Comment: Speci men Type: BLOOD SPECIMENOrdering Facility: [facility] Address: [address] [place] [address] Performed By: #### 5 8410-2 ####[facility] LABCLIA [id number] [place] [address] [place] MCHC (RBC) [Mass/Vol] 32.3 g/dL Normal 30.5-36.0 [facility] Comment on above: Order Comment: Speci men Type: BLOOD SPECIMENOrdering Facility: [facility] Address: [address] [place] [address] Performed By: #### 5 8410-2 ####[facility] LABIA [id number] [place] [address] [place] MCV (RBC) [Entitic vol] 92.1 fL Normal 80.0-100.0 [facility] Comment on above: Order Comment: Speci men Type: BLOOD SPECIMENOrdering Facility: [facility] Address: [address] [place] [address] Performed By: #### 5 8410-2 ####[facility] [id number] [place] [address] [place] Nucleated RBC (Bld) [#/Vol] 10*3/uL Normal <0.01 [facility] Comment on above: Order Comment: Speci men Type: BLOOD SPECIMENOrdering Facility: [facility] Address: [address] [place] [address] Performed By: #### 5 8410-2 ####[facility] [id number] [place] [address] [place] Platelet mean volume (Bld) [Entitic vol] 10.4 fL Normal 9.0-12.7 [facility] Comment on above: Order Comment: Speci men Type: BLOOD SPECIMENOrdering Facility: [facility] Address: [address] [place] [address] Performed By: #### 5 8410-2 ####[facility] LABIA [id number] [place] [address] [place] Platelets (Bld) [#/Vol] 274 10*3/uL Normal 150-400 [facility] Comment on above: Order Comment: Speci men Type: BLOOD SPECIMENOrdering Facility: [facility] Address: [address] [place] [address] Performed By: #### 5 8410-2 ####[facility] LABCLIA [id number] [place] [id number] [place] RBC (Bld) [#/Vol] 2.42 10*6/uL Low 3.90-5.20 [facility] Comment on above: Order Comment: Speci men Type: BLOOD SPECIMENOrdering Facility: [facility] Address: [address] [place] [address] Performed By: #### 5 8410-2 ####[facility] LABCLIA [id number] [place] [address] [place] WBC (Bld) [#/Vol] 6.83 10*3/uL Normal 3.70-11.00 [facility] Comment on above: Order Comment: Speci men Type: BLOOD SPECIMENOrdering Facility: [facility] Address: [address] [place] [address] Performed By: #### 5 8410-2 ####[facility] LABIA [id number] [place] [address] [place] Magnesium SerPl-mCncon 01-24 Magnesium [Mass/Vol] 1.8 mg/dL Normal 1.7-2.3 [facility] Comment on above: Order Comment: Speci men Type: BLOOD SPECIMENOrdering Facility: [facility] Address: [address] [place] [address] Performed By: #### 1 9123-9, 36559-0 ####[facility] LABCLIA [id number] [place] [id number] [place] Osmolality SerPlon 5 Osmolality [Osmolality] 290 mosm/kg Normal 275-300 [facility] Comment on above: Order Comment: Speci men Type: BLOOD SPECIMENOrdering Facility: [facility] Address: [address] [place] [address] Performed By: #### 2 692-2 ####[facility] LABCLIA [id number] [place] [address] [place] Osmolality Uron 01-24-2025 Osmolality (U) [Osmolality] 332 mosm/kg Normal 50-1200 [facility] Comment on above: Order Comment: Speci men Type: URINE SPECIMENOrdering Facility: [facility] Address: [address] [place] [address] Performed By: #### 2 695-5 ####[facility] LABCLIA [id number] [place] [address] [place] Renal function 2000 panelon 01-24-2025 Albumin [Mass/Vol] 2.7 g/dL Low 3.9-4.9 [facility] Comment on above: Order Comment: Speci men Type: BLOOD SPECIMENOrdering Facility: [facility] Address: [address] [place] [address] Performed By: #### 1 9123-9, 38219-4 ####[facility] LABCLIA [id number] [place] [address] [place] Anion gap [Moles/Vol] 10 mmol/L Normal 8-15 [facility] Comment on above: Order Comment: Speci men Type: BLOOD SPECIMENOrdering Facility: [facility] Address: [address] [place] [address] Performed By: #### 1 9123-9, 73402-7 ####[facility] LABCLIA [id number] [place] [address] [place] Calcium [Mass/Vol] 7.5 mg/dL Low 8.5-10.2 [facility] Comment on above: Order Comment: Speci men Type: BLOOD SPECIMENOrdering Facility: [facility] Address: [address] [place] [address] Performed By: #### 1 9123-9, 29225-7 ####[facility] LABCLIA [id number] [place] [id number] [place] Chloride [Moles/Vol] 98 mmol/L Normal 98-107 [facility] Comment on above: Order Comment: Speci men Type: BLOOD SPECIMENOrdering Facility: [facility] Address: [address] [place] [address] Performed By: #### 1 9123-9, 08619-5 ####[facility] LABCLIA [id number] [place] [address] [place] CO2 [Moles/Vol] 23 mmol/L Normal 22-30 [facility] Comment on above: Order Comment: Speci men Type: BLOOD SPECIMENOrdering Facility: [facility] Address: [address] [place] [address] Performed By: #### 1 9123-9, 69364-0 ####[facility] LABCLIA [id number] [address] [place] Creatinine [Mass/Vol] 2.48 mg/dL High 0.58-0.96 [facility] Comment on above: Order Comment: Speci men Type: BLOOD SPECIMENOrdering Facility: [facility] Address: [address] [place] [address] Performed By: #### 1 9123-9, 31608-0 ####[facility] LABIA [id number] [address] [place] Creatinine and Glomerular filtration rate.predicted panel (S/P/Bld) 19 mL/min/1.73m??? Low >=60 [facility] Comment on above: Order Comment: Speci men Type: BLOOD SPECIMENOrdering Facility: [facility] Address: [address] [place] [address] Result Comment: Kelsey mated Glomerular Filtration Rate [...] actual GFR. Performed By: #### 1 9123-9, 22032-8 ####[facility] LABIA [id number] [place] [address] [place] Glucose [Mass/Vol] 130 mg/dL High 74-99 [facility] Comment on above: Order Comment: Speci men Type: BLOOD SPECIMENOrdering Facility: [facility] Address: [address] [place] [address] Result Comment: The [place] Diabetes [employer] (ADA) provides guidance for cutoff [...] Standards of Medical Care in Diabetes 2016, [place] [employer]. Diabetes Care. 2016.39(Suppl 1). Performed By: #### 1 9123-9, 49099-5 ####[facility] [id number] [place] [address] [place] Phosphate [Mass/Vol] 3.3 mg/dL Normal 2.7-4.8 [facility] Comment on above: Order Comment: Speci men Type: BLOOD SPECIMENOrdering Facility: [facility] Address: [address] [place] [address] Performed By: #### 1 9123-9, 69957-8 ####[facility] [id number] [place] [address] [place] Potassium [Moles/Vol] 5.1 mmol/L Normal 3.7-5.1 [facility] Comment on above: Order Comment: Speci men Type: BLOOD SPECIMENOrdering Facility: [facility] Address: [address] [place] [address] Performed By: #### 1 9123-9, 30290-9 ####[facility] LABCLIA [id number] [place] [address] [place] Sodium [Moles/Vol] 131 mmol/L Low 136-144 [facility] Comment on above: Order Comment: Speci men Type: BLOOD SPECIMENOrdering Facility: [facility] Address: [address] [place] [address] Performed By: #### 1 9123-9, 78292-8 ####[facility] LABCLIA [id number] [place] [address] [place] Urea nitrogen [Mass/Vol] 54 mg/dL High 7-21 [facility] Comment on above: Order Comment: Speci men Type: BLOOD SPECIMENOrdering Facility: [facility] Address: [address] [place] [address] Performed By: #### 1 9123-9, 95390-3 ####[facility] LABIA [id number] [place] [address] [place] Sodium ?Tm Ur-sCncon 025 Sodium Unsp time (U) [Moles/Vol] 100 mmol/L Normal 14-216 [facility] Comment on above: Order Comment: Speci men Type: URINE SPECIMENOrdering Facility: [facility] Address: [address] [place] [address] Performed By: #### 3 5678-2 ####[facility] LABCLIA [id number] [place] [address] [place] TYPE + SCREENon 01-24-2025 ABO O Normal [facility] Comment on above: Order Comment: Speci men Type: BLOOD SPECIMENOrdering Facility: [facility] Address: [address] [place] [address] Performed By: #### T SCR ####CC [facility] BLOOD BANKCLIA [id number] [place] [address] [place] Rh Nom (Bld) Negative Normal [facility] Comment on above: Order Comment: Speci men Type: BLOOD SPECIMENOrdering Facility: [facility] Address: [address] [place] [address] Performed By: #### T SCR ####CC [facility] BLOOD BANKCLIA [id number] [place] [address] [place] TYPE AND SCREEN EXPIRATION 01/27/2025 23:59 Normal [facility] Comment on above: Order Comment: Speci men Type: BLOOD SPECIMENOrdering Facility: [facility] Address: [address] [place] [address] Performed By: #### T SCR ####CC [facility] BLOOD BANKCLIA [id number] [address] [place] Tacrolimus Bld-mCncon 2024 Tacrolimus (Bld) [Mass/Vol] 8.2 ng/mL Normal 5.0-20.0 [facility] Comment on above: Order Comment: Speci men Type: BLOOD SPECIMENOrdering Facility: [facility] Address: [address] [place] [address] Result Comment: Ema vidualized target levels for [...] situation. Test performed by chemiluminescent immunoassay using salgomed Alinity i. Performed By: #### 1 1253-2 ####[facility] LABCLIA [id number] [place] [address] [place] CASE MANAGEMon 01-23-2025 CASE MANAGEM Normal [facility] CBC panel Auto (Bld)on 01-23 Erythrocyte distribution width (RBC) [Ratio] 13.7 % Normal 11.5-15.0 [facility] Comment on above: Order Comment: Speci men Type: BLOOD SPECIMENOrdering Facility: [facility] Address: [address] [place] [address] Performed By: #### 5 8410-2 ####[facility] LABIA [id number] [place] [address] [place] Hematocrit (Bld) [Volume fraction] 25.1 % Low 36.0-46.0 [facility] Comment on above: Order Comment: Speci men Type: BLOOD SPECIMENOrdering Facility: [facility] Address: [address] [place] [address] Performed By: #### 5 8410-2 ####[facility] LABIA [id number] [place] [address] [place] Hemoglobin (Bld) [Mass/Vol] 8.1 g/dL Low 11.5-15.5 [facility] Comment on above: Order Comment: Speci men Type: BLOOD SPECIMENOrdering Facility: [facility] Address: [address] [place] [address] Performed By: #### 5 8410-2 ####[facility] LABIA [id number] [place] [address] [place] MCH (RBC) [Entitic mass] 29.3 pg Normal 26.0-34.0 [facility] Comment on above: Order Comment: Speci men Type: BLOOD SPECIMENOrdering Facility: [facility] Address: [address] [place] [address] Performed By: #### 5 8410-2 ####[facility] LABIA [id number] [place] [address] [place] MCHC (RBC) [Mass/Vol] 32.3 g/dL Normal 30.5-36.0 [facility] Comment on above: Order Comment: Speci men Type: BLOOD SPECIMENOrdering Facility: [facility] Address: [address] [place] [address] Performed By: #### 5 8410-2 ####[facility] LABIA [id number] [place] [address] [place] MCV (RBC) [Entitic vol] 90.9 fL Normal 80.0-100.0 [facility] Comment on above: Order Comment: Speci men Type: BLOOD SPECIMENOrdering Facility: [facility] Address: [address] [place] [address] Performed By: #### 5 8410-2 ####[facility] LABIA [id number] [place] [address] [place] Nucleated RBC (Bld) [#/Vol] 10*3/uL Normal <0.01 [facility] Comment on above: Order Comment: Speci men Type: BLOOD SPECIMENOrdering Facility: [facility] Address: [address] [place] [address] Performed By: #### 5 8410-2 ####[facility] LABIA [id number] [place] [address] [place] Platelet mean volume (Bld) [Entitic vol] 10.1 fL Normal 9.0-12.7 [facility] Comment on above: Order Comment: Speci men Type: BLOOD SPECIMENOrdering Facility: [facility] Address: [address] [place] [address] Performed By: #### 5 8410-2 ####[facility] LABIA [id number] [place] [address] [place] Platelets (Bld) [#/Vol] 288 10*3/uL Normal 150-400 [facility] Comment on above: Order Comment: Speci men Type: BLOOD SPECIMENOrdering Facility: [facility] Address: [address] [place] [address] Performed By: #### 5 8410-2 ####[facility] LABIA [id number] [place] [address] [place] RBC (Bld) [#/Vol] 2.76 10*6/uL Low 3.90-5.20 [facility] Comment on above: Order Comment: Speci men Type: BLOOD SPECIMENOrdering Facility: [facility] Address: [address] [place] [address] Performed By: #### 5 8410-2 ####[facility] LABCLIA [id number] [place] [address] [place] WBC (Bld) [#/Vol] 8.89 10*3/uL Normal 3.70-11.00 [facility] Comment on above: Order Comment: Speci men Type: BLOOD SPECIMENOrdering Facility: [facility] Address: [address] [place] [address] Performed By: #### 5 8410-2 ####[facility] LABCLIA [id number] [place] [address] [place] Magnesium SerPl-mCncon 01-23 Magnesium [Mass/Vol] 1.8 mg/dL Normal 1.7-2.3 [facility] Comment on above: Order Comment: Speci men Type: BLOOD SPECIMENOrdering Facility: [facility] Address: [address] [place] [address] Performed By: #### 1 9123-9 ####[facility] LABCLIA [id number] [place] [address] [place] Magnesium [Mass/Vol] 1.6 mg/dL Low 1.7-2.3 [facility] Comment on above: Order Comment: Speci men Type: BLOOD SPECIMENOrdering Facility: [facility] Address: [address] [place] [address] Performed By: #### 1 9123-9, 02663-0 ####[facility] LABCLIA [id number] [place] [address] [place] Renal function 2000 panelon 01-23-2025 Albumin [Mass/Vol] 3.0 g/dL Low 3.9-4.9 [facility] Comment on above: Order Comment: Speci men Type: BLOOD SPECIMENOrdering Facility: [facility] Address: [address] [place] [address] Performed By: #### 1 9123-9, 40745-6 ####[facility] LABCLIA [id number] [facility] [place] [address] [place] Anion gap [Moles/Vol] 10 mmol/L Normal 8-15 [facility] Comment on above: Order Comment: Speci men Type: BLOOD SPECIMENOrdering Facility: [facility] Address: [address] [place] [address] Performed By: #### 1 9123-9, 77637-7 ####[facility] LABCLIA [id number] [place] [address] [place] Calcium [Mass/Vol] 8.0 mg/dL Low 8.5-10.2 [facility] Comment on above: Order Comment: Speci men Type: BLOOD SPECIMENOrdering Facility: [facility] Address: [address] [place] [address] Performed By: #### 1 9123-9, 92914-2 ####[facility] LABCLIA [id number] [place] [address] [place] Chloride [Moles/Vol] 97 mmol/L Low 98-107 [facility] Comment on above: Order Comment: Speci men Type: BLOOD SPECIMENOrdering Facility: [facility] Address: [address] [place] [address] Performed By: #### 1 9123-9, 71443-9 ####[facility] LABCLIA [id number] [place] [address] [place] CO2 [Moles/Vol] 24 mmol/L Normal 22-30 [facility] Comment on above: Order Comment: Speci men Type: BLOOD SPECIMENOrdering Facility: [facility] Address: [address] [place] [address] Performed By: #### 1 9123-9, 14114-4 ####[facility] LABIA [id number] [place] [address] [place] Creatinine [Mass/Vol] 2.26 mg/dL High 0.58-0.96 [facility] Comment on above: Order Comment: Speci men Type: BLOOD SPECIMENOrdering Facility: [facility] Address: [address] [place] [address] Performed By: #### 1 9123-9, 17329-5 ####[facility] [id number] [place] [address] [place] Creatinine and Glomerular filtration rate.predicted panel (S/P/Bld) 21 mL/min/1.73m??? Low >=60 [facility] Comment on above: Order Comment: Speci men Type: BLOOD SPECIMENOrdering Facility: [facility] Address: [address] [place] [address] Result Comment: Kelsey mated Glomerular Filtration Rate [...] actual GFR. Performed By: #### 1 9123-9, 77780-2 ####[facility] LABIA [id number] [place] [address] [place] Glucose [Mass/Vol] 182 mg/dL High 74-99 [facility] Comment on above: Order Comment: Speci men Type: BLOOD SPECIMENOrdering Facility: [facility] Address: [address] [place] [address] Result Comment: The [place] [employer] (ADA) provides guidance for cutoff [...] Standards of Medical Care in Diabetes 2016, [place] [employer]. Diabetes Care. 2016.39(Suppl 1). Performed By: #### 1 9123-9, 63306-3 ####[facility] LABCLIA [id number] [place] [address] [place] Phosphate [Mass/Vol] 2.8 mg/dL Normal 2.7-4.8 [facility] Comment on above: Order Comment: Speci men Type: BLOOD SPECIMENOrdering Facility: [facility] Address: [address] [place] [address] Performed By: #### 1 9123-9, 33228-9 ####[facility] LABCLIA [id number] [place] [address] [place] Potassium [Moles/Vol] 5.1 mmol/L Normal 3.7-5.1 [facility] Comment on above: Order Comment: Speci men Type: BLOOD SPECIMENOrdering Facility: [facility] Address: [address] [place] [address] Performed By: #### 1 9123-9, 95494-3 ####[facility] LABCLIA [id number] [place] [address] [place] Sodium [Moles/Vol] 131 mmol/L Low 136-144 [facility] Comment on above: Order Comment: Speci men Type: BLOOD SPECIMENOrdering Facility: [facility] Address: [address] [place] [address] Performed By: #### 1 9123-9, 14462-0 ####[facility] LABCLIA [id number] [place] [address] [place] Urea nitrogen [Mass/Vol] 49 mg/dL High - [facility] Comment on above: Order Comment: Víctor friend Type: BLOOD SPECIMENOrdering Facility: [facility] Address: [address] [place] [address] Performed By: #### 1 9123-9, 80717-4 ####[facility] LABCLIA [id number] [place] [address] [place] Tacrolimus Bld-mCncon 2024 Tacrolimus (Bld) [Mass/Vol] 11.0 ng/mL Normal 5.0-20.0 [facility] Comment on above: Order Comment: Víctor friend Type: BLOOD SPECIMENOrdering Facility: [facility] Address: [address] [place] [address] Result Comment: Ema vidualized target levels for [...] Alinity i. Performed By: #### 1 1253-2 ####[facility] LABIA [id number] [place] [address] [place] CASE MANAGEMon 01-22-2025 CASE MANAGEM Normal [facility] CBC panel Auto (Bld)on 01-22 Erythrocyte distribution width (RBC) [Ratio] 13.7 % Normal 11.5-15.0 [facility] Comment on above: Order Comment: Víctor friend Type: BLOOD SPECIMENOrdering Facility: [facility] Address: [address] [place] [address] Performed By: #### 5 8410-2 ####[facility] LABIA [id number] [place] [address] [place] Hematocrit (Bld) [Volume fraction] 23.7 % Low 36.0-46.0 [facility] Comment on above: Order Comment: Speci men Type: BLOOD SPECIMENOrdering Facility: [facility] Address: [address] [place] [address] Performed By: #### 5 8410-2 ####[facility] LABCLIA [id number] [place] [address] [place] Hemoglobin (Bld) [Mass/Vol] 7.6 g/dL Low 11.5-15.5 [facility] Comment on above: Order Comment: Speci men Type: BLOOD SPECIMENOrdering Facility: [facility] Address: [address] [place] [address] Performed By: #### 5 8410-2 ####[facility] LABCLIA [id number] [place] [address] [place] MCH (RBC) [Entitic mass] 29.5 pg Normal 26.0-34.0 [facility] Comment on above: Order Comment: Speci men Type: BLOOD SPECIMENOrdering Facility: [facility] Address: [address] [place] [address] Performed By: #### 5 8410-2 ####[facility] LABIA [id number] [place] [address] [place] MCHC (RBC) [Mass/Vol] 32.1 g/dL Normal 30.5-36.0 [facility] Comment on above: Order Comment: Speci men Type: BLOOD SPECIMENOrdering Facility: [facility] Address: [address] [place] [address] Performed By: #### 5 8410-2 ####[facility] LABCLIA [id number] [place] [address] [place] MCV (RBC) [Entitic vol] 91.9 fL Normal 80.0-100.0 [facility] Comment on above: Order Comment: Speci men Type: BLOOD SPECIMENOrdering Facility: [facility] Address: [address] [place] [address] Performed By: #### 5 8410-2 ####[facility] LABIA [id number] [place] [address] [place] Nucleated RBC (Bld) [#/Vol] 10*3/uL Normal <0.01 [facility] Comment on above: Order Comment: Speci men Type: BLOOD SPECIMENOrdering Facility: [facility] Address: [address] [place] [address] Performed By: #### 5 8410-2 ####[facility] LABIA [id number] [place] [address] [place] Platelet mean volume (Bld) [Entitic vol] 9.7 fL Normal 9.0-12.7 [facility] Comment on above: Order Comment: Speci men Type: BLOOD SPECIMENOrdering Facility: [facility] Address: [address] [place] [address] Performed By: #### 5 8410-2 ####[facility] LABIA [id number] [place] [address] [place] Platelets (Bld) [#/Vol] 254 10*3/uL Normal 150-400 [facility] Comment on above: Order Comment: Speci men Type: BLOOD SPECIMENOrdering Facility: [facility] Address: [address] [place] [address] Performed By: #### 5 8410-2 ####[facility] LABIA [id number] [place] [address] [place] RBC (Bld) [#/Vol] 2.58 10*6/uL Low 3.90-5.20 [facility] Comment on above: Order Comment: Speci men Type: BLOOD SPECIMENOrdering Facility: [facility] Address: [address] [place] [address] Performed By: #### 5 8410-2 ####[facility] LABCLIA [id number] [address] [address] [place] WBC (Bld) [#/Vol] 5.73 10*3/uL Normal 3.70-11.00 [facility] Comment on above: Order Comment: Speci men Type: BLOOD SPECIMENOrdering Facility: [facility] Address: [address] [place] [address] Performed By: #### 5 8410-2 ####[facility] LABCLIA [id number] [place] [address] [place] Magnesium SerPl-mCncon 01-22 Magnesium [Mass/Vol] 2.2 mg/dL Normal 1.7-2.3 [facility] Comment on above: Order Comment: Speci men Type: BLOOD SPECIMENOrdering Facility: [facility] Address: [address] [place] [address] Result Comment: Resu lt rechecked. Performed By: #### 1 9123-9, 73122-4 ####[facility] LABCLIA [id number] [place] [address] [place] Renal function 2000 panelon 01-22-2025 Albumin [Mass/Vol] 2.9 g/dL Low 3.9-4.9 [facility] Comment on above: Order Comment: Speci men Type: BLOOD SPECIMENOrdering Facility: [facility] Address: [address] [place] [address] Performed By: #### 1 9123-9, 93687-3 ####[facility] LABCLIA [id number] [place] [address] [place] Anion gap [Moles/Vol] 11 mmol/L Normal 8-15 [facility] Comment on above: Order Comment: Speci men Type: BLOOD SPECIMENOrdering Facility: [facility] Address: [address] [place] [address] Performed By: #### 1 9123-9, 13574-2 ####[facility] LABCLIA [id number] [place] [address] [place] Calcium [Mass/Vol] 7.5 mg/dL Low 8.5-10.2 [facility] Comment on above: Order Comment: Speci men Type: BLOOD SPECIMENOrdering Facility: [facility] Address: [address] [place] [address] Performed By: #### 1 9123-9, 33316-8 ####[facility] LABCLIA [id number] [place] [address] [place] Chloride [Moles/Vol] 100 mmol/L Normal 98-107 [facility] Comment on above: Order Comment: Speci men Type: BLOOD SPECIMENOrdering Facility: [facility] Address: [address] [place] [address] Performed By: #### 1 9123-9, 06914-8 ####[facility] LABCLIA [id number] [place] [address] [place] CO2 [Moles/Vol] 22 mmol/L Normal 22-30 [facility] Comment on above: Order Comment: Speci men Type: BLOOD SPECIMENOrdering Facility: [facility] Address: [address] [place] [address] Performed By: #### 1 9123-9, 69829-3 ####[facility] LABCLIA [id number] [place] [address] [place] Creatinine [Mass/Vol] 2.40 mg/dL High 0.58-0.96 [facility] Comment on above: Order Comment: Speci men Type: BLOOD SPECIMENOrdering Facility: [facility] Address: [address] [place] [address] Performed By: #### 1 9123-9, 85474-2 ####[facility] LABCLIA [id number] [place] [address] [place] Creatinine and Glomerular filtration rate.predicted panel (S/P/Bld) 20 mL/min/1.73m??? Low >=60 [facility] Comment on above: Order Comment: Víctor friend Type: BLOOD SPECIMENOrdering Facility: [facility] Address: [address] [place] [address] Result Comment: Kelsey mated Glomerular Filtration Rate [...] actual GFR. Performed By: #### 1 9123-9, 02401-7 ####[facility] LABCLIA [id number] [place] [address] [place] Glucose [Mass/Vol] 173 mg/dL High 74-99 [facility] Comment on above: Order Comment: Víctor friend Type: BLOOD SPECIMENOrdering Facility: [facility] Address: [address] [place] [address] Result Comment: The [place] [employer] (ADA) provides guidance for cutoff [...] Standards of Medical Care in Diabetes 2016, [place] [employer]. Diabetes Care. 2016.39(Suppl 1). Performed By: #### 1 9123-9, 90627-6 ####[facility] LABCLIA [id number] [place] [address] [place] Phosphate [Mass/Vol] 3.2 mg/dL Normal 2.7-4.8 [facility] Comment on above: Order Comment: Speci men Type: BLOOD SPECIMENOrdering Facility: [facility] Address: [address] [place] [address] Performed By: #### 1 9123-9, 55867-4 ####[facility] LABCLIA [id number] [place] [address] [place] Potassium [Moles/Vol] 5.2 mmol/L High 3.7-5.1 [facility] Comment on above: Order Comment: Speci men Type: BLOOD SPECIMENOrdering Facility: [facility] Address: [address] [place] [address] Performed By: #### 1 9123-9, 43824-6 ####[facility] LABCLIA [id number] [place] [address] [place] Sodium [Moles/Vol] 133 mmol/L Low 136-144 [facility] Comment on above: Order Comment: Speci men Type: BLOOD SPECIMENOrdering Facility: [facility] Address: [address] [place] [address] Performed By: #### 1 9123-9, 73610-4 ####[facility] LABCLIA [id number] [place] [address] [place] Urea nitrogen [Mass/Vol] 52 mg/dL High 7-21 [facility] Comment on above: Order Comment: Speci men Type: BLOOD SPECIMENOrdering Facility: [facility] Address: [address] [place] [address] Performed By: #### 1 9123-9, 23162-3 ####[facility] LABCLIA [id number] [place] [address] [place] Tacrolimus Bld-mCncon 2024 Tacrolimus (Bld) [Mass/Vol] 10.6 ng/mL Normal 5.0-20.0 [facility] Comment on above: Order Comment: Speci men Type: BLOOD SPECIMENOrdering Facility: [facility] Address: [address] [place] [address] Result Comment: Ema vidualized target levels for [...] situation. Test performed by chemiluminescent immunoassay using salgomed Alinity i. Performed By: #### 1 1253-2 ####[facility] LABCLIA [id number] [place] [address] [place] ALLIED HEALTHon 01-21-2025 ALLIED HEALTH Normal [facility] BRIEF OP NOTon 01-21-2025 BRIEF OP NOT Normal [facility] CASE MANAGEMon 01-21-2025 CASE MANAGEM Normal [facility] CBC panel Auto (Bld)on 01-21 Erythrocyte distribution width (RBC) [Ratio] 14.0 % Normal 11.5-15.0 [facility] Comment on above: Order Comment: Víctor friend Type: BLOOD SPECIMENOrdering Facility: [facility] Address: [address] [place] [address] Performed By: #### 5 8410-2 ####[facility] LABCLIA [id number] [place] [address] [place] Hematocrit (Bld) [Volume fraction] 24.4 % Low 36.0-46.0 [facility] Comment on above: Order Comment: Víctor friend Type: BLOOD SPECIMENOrdering Facility: [facility] Address: [address] [place] [address] Performed By: #### 5 8410-2 ####[facility] LABCLIA [id number] [place] [address] [place] Hemoglobin (Bld) [Mass/Vol] 7.8 g/dL Low 11.5-15.5 [facility] Comment on above: Order Comment: Speci men Type: BLOOD SPECIMENOrdering Facility: [facility] Address: [address] [place] [address] Performed By: #### 5 8410-2 ####[facility] [id number] [place] [address] [place] MCH (RBC) [Entitic mass] 29.3 pg Normal 26.0-34.0 [facility] Comment on above: Order Comment: Speci men Type: BLOOD SPECIMENOrdering Facility: [facility] Address: [address] [place] [address] Performed By: #### 5 8410-2 ####[facility] [id number] [place] [address] [place] MCHC (RBC) [Mass/Vol] 32.0 g/dL Normal 30.5-36.0 [facility] Comment on above: Order Comment: Speci men Type: BLOOD SPECIMENOrdering Facility: [facility] Address: [address] [place] [address] Performed By: #### 5 8410-2 ####[facility] [id number] [place] [address] [place] MCV (RBC) [Entitic vol] 91.7 fL Normal 80.0-100.0 [facility] Comment on above: Order Comment: Speci men Type: BLOOD SPECIMENOrdering Facility: [facility] Address: [address] [place] [address] Performed By: #### 5 8410-2 ####[facility] [id number] [place] [address] [place] Nucleated RBC (Bld) [#/Vol] 10*3/uL Normal <0.01 [facility] Comment on above: Order Comment: Speci men Type: BLOOD SPECIMENOrdering Facility: [facility] Address: [address] [place] [address] Performed By: #### 5 8410-2 ####[facility] LABCLIA [id number] [address] [address] [place] Platelet mean volume (Bld) [Entitic vol] 10.1 fL Normal 9.0-12.7 [facility] Comment on above: Order Comment: Speci men Type: BLOOD SPECIMENOrdering Facility: [facility] Address: [address] [place] [address] Performed By: #### 5 8410-2 ####[facility] LABIA [id number] [place] [address] [place] Platelets (Bld) [#/Vol] 253 10*3/uL Normal 150-400 [facility] Comment on above: Order Comment: Speci men Type: BLOOD SPECIMENOrdering Facility: [facility] Address: [address] [place] [address] Performed By: #### 5 8410-2 ####[facility] LABIA [id number] [place] [address] [place] RBC (Bld) [#/Vol] 2.66 10*6/uL Low 3.90-5.20 [facility] Comment on above: Order Comment: Speci men Type: BLOOD SPECIMENOrdering Facility: [facility] Address: [address] [place] [address] Performed By: #### 5 8410-2 ####[facility] LABIA [id number] [place] [address] [place] WBC (Bld) [#/Vol] 5.52 10*3/uL Normal 3.70-11.00 [facility] Comment on above: Order Comment: Speci men Type: BLOOD SPECIMENOrdering Facility: [facility] Address: [address] [place] [address] Performed By: #### 5 8410-2 ####[facility] LABIA [id number] [place] [id number] [place] FUNDUS PHOTOS OU (BOTH EYES) on 01-21-2025 [facility] IR CVP PLACEMENTon IR CVP PLACEMENT Normal [facility] Magnesium SerPl-mCncon 01-21 Magnesium [Mass/Vol] 1.1 mg/dL Low 1.7-2.3 [facility] Comment on above: Order Comment: Speci men Type: BLOOD SPECIMENOrdering Facility: [facility] Address: [address] [place] [address] Performed By: #### 2 4362-6, 32919-5 ####[facility] LABCLIA [id number] [place] [address] [place] PT EDon 01-21-2025 PT ED Normal [facility] Renal function 2000 panelon 01-21-2025 Albumin [Mass/Vol] 2.7 g/dL Low 3.9-4.9 [facility] Comment on above: Order Comment: Speci men Type: BLOOD SPECIMENOrdering Facility: [facility] Address: [address] [place] [address] Performed By: #### 2 4362-6, ####[facility] LABCLIA [id number] [place] [address] [place] Anion gap [Moles/Vol] 14 mmol/L Normal 8-15 [facility] Comment on above: Order Comment: Speci men Type: BLOOD SPECIMENOrdering Facility: [facility] Address: [address] [place] [address] Performed By: #### 2 4362-6, ####[facility] LABCLIA [id number] [place] [address] [place] Calcium [Mass/Vol] 7.1 mg/dL Low 8.5-10.2 [facility] Comment on above: Order Comment: Speci men Type: BLOOD SPECIMENOrdering Facility: [facility] Address: [address] [place], [place] [address] Performed By: #### 2 4362-6, ####[facility] LABCLIA [id number] [address] [address] [place] Chloride [Moles/Vol] 102 mmol/L Normal 98-107 [facility] Comment on above: Order Comment: Speci men Type: BLOOD SPECIMENOrdering Facility: [facility] Address: [address] [place] [address] Performed By: #### 2 4362-6, ####[facility] LABCLIA [id number] [place] [address] [place] CO2 [Moles/Vol] 18 mmol/L Low 22-30 [facility] Comment on above: Order Comment: Speci men Type: BLOOD SPECIMENOrdering Facility: [facility] Address: [address] [place] [address] Performed By: #### 2 4362-6, ####[facility] LABCLIA [id number] [place] [address] [place] Creatinine [Mass/Vol] 2.34 mg/dL High 0.58-0.96 [facility] Comment on above: Order Comment: Speci men Type: BLOOD SPECIMENOrdering Facility: [facility] Address: [address] [place] [address] Performed By: #### 2 4362-6, ####[facility] LABIA [id number] [place] [id number] [place] Creatinine and Glomerular filtration rate.predicted panel (S/P/Bld) 21 mL/min/1.73m??? Low >=60 [facility] Comment on above: Order Comment: Speci men Type: BLOOD SPECIMENOrdering Facility: [facility] Address: [address] [place] [address] Result Comment: Kelsey mated Glomerular Filtration Rate [...] actual GFR. Performed By: #### 2 4362-6, ####[facility] LABCLIA [id number] [place] [address] [place] Glucose [Mass/Vol] 135 mg/dL High 74-99 [facility] Comment on above: Order Comment: Víctor friend Type: BLOOD SPECIMENOrdering Facility: [facility] Address: [address] [place] [address] Result Comment: The [place] [employer] (ADA) provides guidance for cutoff [...] Standards of Medical Care in Diabetes 2016, [place] [employer]. Diabetes Care. 2016.39(Suppl 1). Performed By: #### 2 4362-, ####[facility] LABCLIA [id number] [place] [id number] [place] Phosphate [Mass/Vol] 2.9 mg/dL Normal 2.7-4.8 [facility] Comment on above: Order Comment: Víctor friend Type: BLOOD SPECIMENOrdering Facility: [facility] Address: [address] [facility] [place] [address] Performed By: #### 2 4362-6, ####[facility] LABCLIA [id number] [address] [address] [place] Potassium [Moles/Vol] 4.9 mmol/L Normal 3.7-5.1 [facility] Comment on above: Order Comment: Speci men Type: BLOOD SPECIMENOrdering Facility: [facility] Address: [address] [place] [address] Performed By: #### 2 4362-6, ####[facility] LABCLIA [id number] [place] [address] [place] Sodium [Moles/Vol] 134 mmol/L Low 136-144 [facility] Comment on above: Order Comment: Speci men Type: BLOOD SPECIMENOrdering Facility: [facility] Address: [address] [place] [address] Performed By: #### 2 4362-6, ####[facility] LABCLIA [id number] [place] [address] [place] Urea nitrogen [Mass/Vol] 61 mg/dL High 7-21 [facility] Comment on above: Order Comment: Speci men Type: BLOOD SPECIMENOrdering Facility: [facility] Address: [address] [place] [address] Performed By: #### 2 4362-6, ####[facility] LABCLIA [id number] [place] [address] [place] Tacrolimus Bld-[facility] 2024 Tacrolimus (Bld) [Mass/Vol] 17.6 ng/mL Normal 5.0-20.0 [facility] Comment on above: Order Comment: Speci men Type: BLOOD SPECIMENOrdering Facility: [facility] Address: [address] [place] [address] Result Comment: Ema vidualized target levels for [...] situation. Test performed by chemiluminescent immunoassay using salgomed Alinity i. Performed By: #### 1 1253-2 ####[facility] LABIA [id number] [place] [address] [place] C diff Tox gens Stl Ql ULICES+p robeon 01-20-2025 C. difficile toxin genes ULICES+probe Ql (Stl) Positive Abnormal Negative for C. difficile toxin by PCR [facility] Comment on above: Order Comment: Speci ronna Type: STOOL SPECIMENOrdering Facility: [facility] Address: [address] [place] [address] Result Comment: A po sitive PCR result [...] submission. Performed By: #### 5 4067-4, CDEIA ####[facility] [id number] [place] [address] [place] CBC panel Auto (Bld)on 01-20 Erythrocyte distribution width (RBC) [Ratio] 14.1 % Normal 11.5-15.0 [facility] Comment on above: Order Comment: Víctor friend Type: BLOOD SPECIMENOrdering Facility: [facility] Address: [address] [place] [address] Performed By: #### 5 8410-2 ####[facility] LABIA [id number] [place] [address] [place] Hematocrit (Bld) [Volume fraction] 24.9 % Low 36.0-46.0 [facility] Comment on above: Order Comment: Víctor friend Type: BLOOD SPECIMENOrdering Facility: [facility] Address: [address] [place] [address] Performed By: #### 5 8410-2 ####[facility] LABIA [id number] [place] [address] [place] Hemoglobin (Bld) [Mass/Vol] 7.8 g/dL Low 11.5-15.5 [facility] Comment on above: Order Comment: Speci men Type: BLOOD SPECIMENOrdering Facility: [facility] Address: [address] [place] [address] Performed By: #### 5 8410-2 ####[facility] LABIA [id number] [place] [address] [place] MCH (RBC) [Entitic mass] 29.7 pg Normal 26.0-34.0 [facility] Comment on above: Order Comment: Speci men Type: BLOOD SPECIMENOrdering Facility: [facility] Address: [address] [place] [address] Performed By: #### 5 8410-2 ####[facility] LABIA [id number] [place] [address] [place] MCHC (RBC) [Mass/Vol] 31.3 g/dL Normal 30.5-36.0 [facility] Comment on above: Order Comment: Speci men Type: BLOOD SPECIMENOrdering Facility: [facility] Address: [address] [place] [address] Performed By: #### 5 8410-2 ####[facility] LABIA [id number] [place] [address] [place] MCV (RBC) [Entitic vol] 94.7 fL Normal 80.0-100.0 [facility] Comment on above: Order Comment: Speci men Type: BLOOD SPECIMENOrdering Facility: [facility] Address: [address] [place] [address] Performed By: #### 5 8410-2 ####[facility] LABIA [id number] [place] [address] [place] Nucleated RBC (Bld) [#/Vol] 10*3/uL Normal <0.01 [facility] Comment on above: Order Comment: Speci men Type: BLOOD SPECIMENOrdering Facility: [facility] Address: [address] [place] [address] Performed By: #### 5 8410-2 ####[facility] LABCLIA [id number] [place] [address] [place] Platelet mean volume (Bld) [Entitic vol] 10.3 fL Normal 9.0-12.7 [facility] Comment on above: Order Comment: Speci men Type: BLOOD SPECIMENOrdering Facility: [facility] Address: [address] [place] [address] Performed By: #### 5 8410-2 ####[facility] LABCLIA [id number] [place] [address] [place] Platelets (Bld) [#/Vol] 202 10*3/uL Normal 150-400 [facility] Comment on above: Order Comment: Speci men Type: BLOOD SPECIMENOrdering Facility: [facility] Address: [address] [place] [address] Performed By: #### 5 8410-2 ####[facility] LABCLIA [id number] [place] [address] [place] RBC (Bld) [#/Vol] 2.63 10*6/uL Low 3.90-5.20 [facility] Comment on above: Order Comment: Speci men Type: BLOOD SPECIMENOrdering Facility: [facility] Address: [address] [place] [address] Performed By: #### 5 8410-2 ####[facility] LABCLIA [id number] [place] [address] [place] WBC (Bld) [#/Vol] 5.11 10*3/uL Normal 3.70-11.00 [facility] Comment on above: Order Comment: Speci men Type: BLOOD SPECIMENOrdering Facility: [facility] Address: [address] [place] [address] Performed By: #### 5 8410-2 ####[facility] LABCLIA [id number] [place] [address] [place] CLOSTRIDIUM DIFFICILE TOXIN BY EIAon 01-20-2025 C. difficile toxin A+B IA Ql (Stl) Not detected Normal Negative for C. difficile toxin [facility] Comment on above: Order Comment: Speci men Type: STOOL SPECIMENOrdering Facility: [facility] Address: [address] [place] [address] Result Comment: Toxi n EIA is less sensitive than cell cytotoxin and PCR assays. Clinical correlation of PCR positive/toxin EIA negative results is required to distinguish C. difficle colonization from disease. Performed By: #### 5 4067-4, CDEIA ####[facility] LABCLIA [id number] [place] [address] [place] FUNDUS PHOTOS OU (BOTH EYES) on 01-20-2025 Radiology Study observation (narrative) [facility] Gastrointestinal pathogens p shaina ULIECS+probe (Stl)on 01-20-2025 ADENOVIRUS F 40/41 DNA Not detected Normal Not Detected [facility] Comment on above: Order Comment: Speci men Type: STOOL SPECIMENOrdering Facility: [facility] Address: [address] [place] [address] Performed By: #### 7 9381-0 ####[facility] LABCLIA [id number] [place] [address] [place] ASTROVIRUS RNA Not detected Normal Not Detected [facility] Comment on above: Order Comment: Speci men Type: STOOL SPECIMENOrdering Facility: [facility] Address: [address] [place] [address] Performed By: #### 7 9381-0 ####[facility] LABCLIA [id number] [place] [address] [place] C. cayetanensis DNA ULICES+probe Ql (Unsp spec) Not detected Normal Not Detected [facility] Comment on above: Order Comment: Speci men Type: STOOL SPECIMENOrdering Facility: [facility] Address: [address] [place] [address] Performed By: #### 7 9381-0 ####[facility] LABCLIA [id number] [place] [address] [place] Campylobacter sp DNA.diarrheagenic ULICES+probe Ql (Stl) Not detected Normal Not Detected [facility] Comment on above: Order Comment: Speci men Type: STOOL SPECIMENOrdering Facility: [facility] Address: [address] [place] [address] Performed By: #### 7 9381-0 ####[facility] LABCLIA [id number] [place] [address] [place] Cryptosporidium sp DNA ULICES+probe Ql (Unsp spec) Not detected Normal Not Detected [facility] Comment on above: Order Comment: Speci men Type: STOOL SPECIMENOrdering Facility: [facility] Address: [address] [place] [address] Performed By: #### 7 9381-0 ####[facility] LABCLIA [id number] [place] [address] [place] E. coli O157:H7 DNA ULICES+probe Ql (Unsp spec) Not applicable Normal Not detected [facility] Comment on above: Order Comment: Speci men Type: STOOL SPECIMENOrdering Facility: [facility] Address: [address] [place] [address] Performed By: #### 7 9381-0 ####[facility] LABCLIA [id number] [place] [address] [place] E. coli stx1+stx2 genes ULICES+probe Ql (Stl) Not detected Normal Not Detected [facility] Comment on above: Order Comment: Speci men Type: STOOL SPECIMENOrdering Facility: [facility] Address: [address] [place] [address] Performed By: #### 7 9381-0 ####[facility] LABCLIA [id number] [place] [address] [place] E. histolytica DNA ULICES+probe Ql (Unsp spec) Not detected Normal Not Detected [facility] Comment on above: Order Comment: Speci men Type: STOOL SPECIMENOrdering Facility: [facility] Address: [address] [place] [address] Performed By: #### 7 9381-0 ####[facility] LABCLIA [id number] [place] [address] [place] ENTEROAGGREGATIVE E. COLI (EAEC) DNA Not detected Normal Not Detected [facility] Comment on above: Order Comment: Speci men Type: STOOL SPECIMENOrdering Facility: [facility] Address: [address] [place] [address] Performed By: #### 7 9381-0 ####[facility] LABCLIA [id number] [place] [address] [place] ENTEROPATHOGENIC E. COLI (EPEC) DNA Not detected Normal Not detected [facility] Comment on above: Order Comment: Speci men Type: STOOL SPECIMENOrdering Facility: [facility] Address: [address] [place] [address] Performed By: #### 7 9381-0 ####[facility] LABCLIA [id number] [place] [address] [place] ENTEROTOXIGENIC E. COLI (ETEC) DNA Not detected Normal Not Detected [facility] Comment on above: Order Comment: Speci men Type: STOOL SPECIMENOrdering Facility: [facility] Address: [address] [place] [address] Performed By: #### 7 9381-0 ####[facility] LABCLIA [id number] [address] [id number] [address] [place] G. lamblia DNA ULICES+probe Ql (Unsp spec) Not detected Normal Not Detected [facility] Comment on above: Order Comment: Speci men Type: STOOL SPECIMENOrdering Facility: [facility] Address: [address] [place] [address] Performed By: #### 7 9381-0 ####[facility] LABCLIA [id number] [place] [address] [place] NOROVIRUS GI/GII RNA Detected Abnormal Not Detected [facility] Comment on above: Order Comment: Speci men Type: STOOL SPECIMENOrdering Facility: [facility] Address: [address] [place] [address] Performed By: #### 7 9381-0 ####[facility] LABCLIA [id number] [place] [address] [place] PLESIOMONAS SHIGELLOIDES DNA Not detected Normal Not Detected [facility] Comment on above: Order Comment: Speci men Type: STOOL SPECIMENOrdering Facility: [facility] Address: [address] [place] [address] Performed By: #### 7 9381-0 ####[facility] LABCLIA [id number] [place] [address] [place] ROTAVIRUS A RNA Not detected Normal Not Detected [facility] Comment on above: Order Comment: Speci men Type: STOOL SPECIMENOrdering Facility: [facility] Address: [address] [place] [address] Performed By: #### 7 9381-0 ####[facility] LABCLIA [id number] [place] [address] [place] Salmonella sp DNA ULICES+probe Ql (Unsp spec) Not detected Normal Not Detected [facility] Comment on above: Order Comment: Speci men Type: STOOL SPECIMENOrdering Facility: [facility] Address: [address] [place] [address] Performed By: #### 7 9381-0 ####[facility] LABCLIA [id number] [place] [address] [place] SAPOVIRUS (GENOGROUPS I, II, IV, V) RNA Not detected Normal Not Detected [facility] Comment on above: Order Comment: Speci men Type: STOOL SPECIMENOrdering Facility: [facility] Address: [address] [place] [address] Performed By: #### 7 9381-0 ####[facility] LABCLIA [id number] [place] [address] [place] Shigella species+EIEC invasion plasmid antigen H ipaH gene ULICES+probe Ql (Stl) Not detected Normal Not Detected [facility] Comment on above: Order Comment: Speci men Type: STOOL SPECIMENOrdering Facility: [facility] Address: [address] [place] [address] Performed By: #### 7 9381-0 ####[facility] LABCLIA [id number] [place] [address] [place] V. cholerae DNA ULICES+probe Ql (Unsp spec) Not detected Normal Not Detected [facility] Comment on above: Order Comment: Speci men Type: STOOL SPECIMENOrdering Facility: [facility] Address: [address] [place] [address] Performed By: #### 7 9381-0 ####[facility] LABCLIA [id number] [place] [address] [place] Vibrio sp DNA ULICES+probe Nom (Unsp spec) Not detected Normal Not Detected [facility] Comment on above: Order Comment: Speci men Type: STOOL SPECIMENOrdering Facility: [facility] Address: [address] [place] [address] Performed By: #### 7 9381-0 ####[facility] LABCLIA [id number] [place] [address] [place] Yersinia sp DNA ULICES+probe Nom (Unsp spec) Not detected Normal Not Detected [facility] Comment on above: Order Comment: Speci men Type: STOOL SPECIMENOrdering Facility: [facility] Address: [address] [place] [address] Performed By: #### 7 9381-0 ####[facility] LABCLIA [id number] [address] [address] [place] Magnesium SerPl-mCncon 01-20 Magnesium [Mass/Vol] 1.2 mg/dL Low 1.7-2.3 [facility] Comment on above: Order Comment: Speci men Type: BLOOD SPECIMENOrdering Facility: [facility] Address: [address] [place] [address] Performed By: #### 2 4362-6, ####[facility] LABCLIA [id number] [place] [address] [place] NUTRITIONon 01-20-2025 NUTRITION Normal [facility] OCT MACULA CIRRUS OU (BOTH E YES)on 01-20-2025 [facility] Radiology Study observation (narrative) [facility] PT EDon 01-20-2025 PT ED Normal [facility] Renal function 2000 panelon 01-20-2025 Albumin [Mass/Vol] 2.6 g/dL Low 3.9-4.9 [facility] Comment on above: Order Comment: Speci men Type: BLOOD SPECIMENOrdering Facility: [facility] Address: [address] [place] [address] Performed By: #### 2 4362-6, ####[facility] LABCLIA [id number] [address] [address] [place] Anion gap [Moles/Vol] 14 mmol/L Normal 8-15 [facility] Comment on above: Order Comment: Speci men Type: BLOOD SPECIMENOrdering Facility: [facility] Address: [address] [place] [address] Performed By: #### 2 4362-6, ####[facility] LABCLIA [id number] [facility] [address] [place] Calcium [Mass/Vol] 7.2 mg/dL Low 8.5-10.2 [facility] Comment on above: Order Comment: Speci men Type: BLOOD SPECIMENOrdering Facility: [facility] Address: [address] [place] [address] Performed By: #### 2 4362-6, ####[facility] LABCLIA [id number] [facility] [address] [place] Chloride [Moles/Vol] 101 mmol/L Normal 98-107 [facility] Comment on above: Order Comment: Speci men Type: BLOOD SPECIMENOrdering Facility: [facility] Address: [address] [place] [address] Performed By: #### 2 4362-6, ####[facility] LABCLIA [id number] [place] [address] [place] CO2 [Moles/Vol] 17 mmol/L Low 22-30 [facility] Comment on above: Order Comment: Speci men Type: BLOOD SPECIMENOrdering Facility: [facility] Address: [address] [place] [address] Performed By: #### 2 4362-6, ####[facility] LABCLIA [id number] [facility] [place] [address] [place] Creatinine [Mass/Vol] 2.23 mg/dL High 0.58-0.96 [facility] Comment on above: Order Comment: Speci men Type: BLOOD SPECIMENOrdering Facility: [facility] Address: [address] [place] [address] Performed By: #### 2 4362-6, ####[facility] LABCLIA [id number] [facility] [place] [address] [place] Creatinine and Glomerular filtration rate.predicted panel (S/P/Bld) 22 mL/min/1.73m??? Low >=60 [facility] Comment on above: Order Comment: Víctor friend Type: BLOOD SPECIMENOrdering Facility: [facility] Address: [address] [place] [address] Result Comment: Kelsey mated Glomerular Filtration Rate [...] actual GFR. Performed By: #### 2 4362-6, 19955-8 ####[facility] LABIA [id number] [place] [address] [place] Glucose [Mass/Vol] 206 mg/dL High 74-99 [facility] Comment on above: Order Comment: Víctor friend Type: BLOOD SPECIMENOrdering Facility: [facility] Address: [address] [place] [address] Result Comment: The [place] [employer] (ADA) provides guidance for cutoff [...] Standards of Medical Care in Diabetes 2016, [place] [employer]. Diabetes Care. 2016.39(Suppl 1). Performed By: #### 2 4362-6, 71811-7 ####[facility] LABIA [id number] [place] [id number] [place] Phosphate [Mass/Vol] 2.6 mg/dL Low 2.7-4.8 [facility] Comment on above: Order Comment: Speci men Type: BLOOD SPECIMENOrdering Facility: [facility] Address: [address] [place], [place] [address] Performed By: #### 2 4362-6, ####[facility] LABCLIA [id number] [address] [address] [place] Potassium [Moles/Vol] 4.9 mmol/L Normal 3.7-5.1 [facility] Comment on above: Order Comment: Speci men Type: BLOOD SPECIMENOrdering Facility: [facility] Address: [address] [place] [address] Performed By: #### 2 4362-6, ####[facility] LABCLIA [id number] [place] [address] [place] Sodium [Moles/Vol] 132 mmol/L Low 136-144 [facility] Comment on above: Order Comment: Speci men Type: BLOOD SPECIMENOrdering Facility: [facility] Address: [address] [place] [address] Performed By: #### 2 4362-6, ####[facility] LABCLIA [id number] [place] [address] [place] Urea nitrogen [Mass/Vol] 55 mg/dL High 7-21 [facility] Comment on above: Order Comment: Speci men Type: BLOOD SPECIMENOrdering Facility: [facility] Address: [address] [place] [address] Performed By: #### 2 4362-6, ####[facility] LABIA [id number] [place] [id number] [place] Tacrolimus Bld-mCncon 2024 Tacrolimus (Bld) [Mass/Vol] 21.0 ng/mL High 5.0-20.0 [facility] Comment on above: Order Comment: Speci men Type: BLOOD SPECIMENOrdering Facility: [facility] Address: [address] [place], [place] [address] Result Comment: Ema vidualized target levels for [...] situation. Test performed by chemiluminescent immunoassay using salgomed Alinity i. Performed By: #### 1 1253-2 ####[facility] LABCLIA [id number] [place] [address] [place] ALLIED HEALTHon 01-19-2025 ALLIED HEALTH Normal [facility] CBC panel Auto (Bld)on 01-19 Erythrocyte distribution width (RBC) [Ratio] 14.1 % Normal 11.5-15.0 [facility] Comment on above: Order Comment: Speci men Type: BLOOD SPECIMENOrdering Facility: [facility] Address: [address] [place] [address] Performed By: #### 5 8410-2 ####[facility] LABCLIA [id number] [place] [address] [place] Hematocrit (Bld) [Volume fraction] 23.8 % Low 36.0-46.0 [facility] Comment on above: Order Comment: Verenai ronna Type: BLOOD SPECIMENOrdering Facility: [facility] Address: [address] [place] [address] Performed By: #### 5 8410-2 ####[facility] LABCLIA [id number] [place] [id number] [place] Hemoglobin (Bld) [Mass/Vol] 7.6 g/dL Low 11.5-15.5 [facility] Comment on above: Order Comment: Speci men Type: BLOOD SPECIMENOrdering Facility: [facility] Address: [address] [place] [address] Performed By: #### 5 8410-2 ####[facility] LABCLIA [id number] [place] [address] [place] MCH (RBC) [Entitic mass] 29.9 pg Normal 26.0-34.0 [facility] Comment on above: Order Comment: Speci men Type: BLOOD SPECIMENOrdering Facility: [facility] Address: [address] [place] [address] Performed By: #### 5 8410-2 ####[facility] LABIA [id number] [place] [address] [place] MCHC (RBC) [Mass/Vol] 31.9 g/dL Normal 30.5-36.0 [facility] Comment on above: Order Comment: Speci men Type: BLOOD SPECIMENOrdering Facility: [facility] Address: [address] [place] [address] Performed By: #### 5 8410-2 ####[facility] [id number] [place] [address] [place] MCV (RBC) [Entitic vol] 93.7 fL Normal 80.0-100.0 [facility] Comment on above: Order Comment: Speci men Type: BLOOD SPECIMENOrdering Facility: [facility] Address: [address] [place] [address] Performed By: #### 5 8410-2 ####[facility] [id number] [place] [address] [place] Nucleated RBC (Bld) [#/Vol] 10*3/uL Normal <0.01 [facility] Comment on above: Order Comment: Speci men Type: BLOOD SPECIMENOrdering Facility: [facility] Address: [address] [place] [address] Performed By: #### 5 8410-2 ####[facility] [id number] [place] [address] [place] Platelet mean volume (Bld) [Entitic vol] 10.4 fL Normal 9.0-12.7 [facility] Comment on above: Order Comment: Speci men Type: BLOOD SPECIMENOrdering Facility: [facility] Address: [address] [place] [address] Performed By: #### 5 8410-2 ####[facility] LABCLIA [id number] [place] [address] [place] Platelets (Bld) [#/Vol] 161 10*3/uL Normal 150-400 [facility] Comment on above: Order Comment: Speci men Type: BLOOD SPECIMENOrdering Facility: [facility] Address: [address] [place] [address] Performed By: #### 5 8410-2 ####[facility] LABCLIA [id number] [place] [address] [place] RBC (Bld) [#/Vol] 2.54 10*6/uL Low 3.90-5.20 [facility] Comment on above: Order Comment: Speci men Type: BLOOD SPECIMENOrdering Facility: [facility] Address: [address] [place] [address] Performed By: #### 5 8410-2 ####[facility] LABCLIA [id number] [place] [address] [place] WBC (Bld) [#/Vol] 5.83 10*3/uL Normal 3.70-11.00 [facility] Comment on above: Order Comment: Speci men Type: BLOOD SPECIMENOrdering Facility: [facility] Address: [address] [place] [address] Performed By: #### 5 8410-2 ####[facility] LABCLIA [id number] [place] [address] [place] CONSULT PROGon 01-19-2025 CONSULT PROG Normal [facility] Magnesium SerPl-mCncon 01-19 Magnesium [Mass/Vol] 1.3 mg/dL Low 1.7-2.3 [facility] Comment on above: Order Comment: Speci men Type: BLOOD SPECIMENOrdering Facility: [facility] Address: [address] [place] [address] Performed By: #### 1 9123-9, 22233-6 ####[facility] LABCLIA [id number] [place] [address] [place] PT panel Coag (PPP)on 2024 INR Coag (PPP) [Relative time] 1.2 {INR} Normal 0.9-1.3 [facility] Comment on above: Order Comment: Víctor friend Type: BLOOD SPECIMENOrdering Facility: [facility] Address: [address] [place] [address] Result Comment: Zulay min K Antagonist (VKA) Therapeutic Range: INR 2 to 3 (Target INR of 2.5)Note: For patients treated with VKA drugs, such as warfarin, the [place] [employer] 2012 Guideline recommends [...] al. Chest 2012, 141:7S-47SNishelmer RA, et al. [facility] 2017, 70: 252-289 Performed By: #### 3 4528-0 ####[facility] LABIA [id number] [place] [address] [place] PT Coag (PPP) [Time] 13.0 s Normal 9.7-13.0 [facility] Comment on above: Order Comment: Speci men Type: BLOOD SPECIMENOrdering Facility: [facility] Address: [address] [place] [address] Performed By: #### 3 4528-0 ####[facility] LABCLIA [id number] [place] [address] [place] Renal function 2000 panelon 01-19-2025 Albumin [Mass/Vol] 2.5 g/dL Low 3.9-4.9 [facility] Comment on above: Order Comment: Speci men Type: BLOOD SPECIMENOrdering Facility: [facility] Address: [address] [place] [address] Performed By: #### 1 9123-9, 08211-9 ####[facility] LABCLIA [id number] [place] [address] [place] Anion gap [Moles/Vol] 11 mmol/L Normal 8-15 [facility] Comment on above: Order Comment: Speci men Type: BLOOD SPECIMENOrdering Facility: [facility] Address: [address] [place] [address] Performed By: #### 1 9123-9, 86423-3 ####[facility] LABCLIA [id number] [place] [address] [place] Calcium [Mass/Vol] 6.9 mg/dL Low 8.5-10.2 [facility] Comment on above: Order Comment: Speci men Type: BLOOD SPECIMENOrdering Facility: [facility] Address: [address] [place] [address] Performed By: #### 1 9123-9, 91496-8 ####[facility] LABCLIA [id number] [place] [id number] [place] Chloride [Moles/Vol] 102 mmol/L Normal 98-107 [facility] Comment on above: Order Comment: Speci men Type: BLOOD SPECIMENOrdering Facility: [facility] Address: [address] [place] [address] Performed By: #### 1 9123-9, 76646-5 ####[facility] LABCLIA [id number] [place] [address] [place] CO2 [Moles/Vol] 19 mmol/L Low 22-30 [facility] Comment on above: Order Comment: Speci men Type: BLOOD SPECIMENOrdering Facility: [facility] Address: [address] [place] [address] Performed By: #### 1 9123-9, 94414-5 ####[facility] LABIA [id number] [place] [address] [place] Creatinine [Mass/Vol] 2.30 mg/dL High 0.58-0.96 [facility] Comment on above: Order Comment: Speci men Type: BLOOD SPECIMENOrdering Facility: [facility] Address: [address] [place] [address] Performed By: #### 1 9123-9, 90646-4 ####[facility] [id number] [place] [address] [place] Creatinine and Glomerular filtration rate.predicted panel (S/P/Bld) 21 mL/min/1.73m??? Low >=60 [facility] Comment on above: Order Comment: Speci men Type: BLOOD SPECIMENOrdering Facility: [facility] Address: [address] [place] [address] Result Comment: Kelsey mated Glomerular Filtration Rate [...] actual GFR. Performed By: #### 1 9123-9, 09795-5 ####[facility] LABIA [id number] [place] [address] [place] Glucose [Mass/Vol] 150 mg/dL High 74-99 [facility] Comment on above: Order Comment: Speci men Type: BLOOD SPECIMENOrdering Facility: [facility] Address: [address] [place] [address] Result Comment: The [place] Diabetes [employer] (ADA) provides guidance for cutoff [...] Standards of Medical Care in Diabetes 2016, [place] [employer]. Diabetes Care. 2016.39(Suppl 1). Performed By: #### 1 9123-9, 31020-8 ####[facility] LABCLIA [id number] [place] [address] [place] Phosphate [Mass/Vol] 3.2 mg/dL Normal 2.7-4.8 [facility] Comment on above: Order Comment: Víctor friend Type: BLOOD SPECIMENOrdering Facility: [facility] Address: [address] [place] [address] Performed By: #### 1 9123-9, 14947-8 ####[facility] LABCLIA [id number] [place] [address] [place] Potassium [Moles/Vol] 4.7 mmol/L Normal 3.7-5.1 [facility] Comment on above: Order Comment: Víctor friend Type: BLOOD SPECIMENOrdering Facility: [facility] Address: [address] [place] [address] Performed By: #### 1 9123-9, 14041-1 ####[facility] LABCLIA [id number] [place] [id number] [place] Sodium [Moles/Vol] 132 mmol/L Low 136-144 [facility] Comment on above: Order Comment: Specsherita friend Type: BLOOD SPECIMENOrdering Facility: [facility] Address: [address] [place] [address] Performed By: #### 1 9123-9, 99128-4 ####[facility] LABCLIA [id number] [place] [id number] [place] Urea nitrogen [Mass/Vol] 56 mg/dL High 7-21 [facility] Comment on above: Order Comment: Speci men Type: BLOOD SPECIMENOrdering Facility: [facility] Address: [address] [place] [address] Performed By: #### 1 9123-9, 33683-6 ####[facility] LABIA [id number] [place] [address] [place] Tacrolimus Bld-mCncon 2024 Tacrolimus (Bld) [Mass/Vol] 12.0 ng/mL Normal 5.0-20.0 [facility] Comment on above: Order Comment: Speci ronna Type: BLOOD SPECIMENOrdering Facility: [facility] Address: [address] [place] [address] Result Comment: Ema vidualized target levels for [...] Alinity i. Performed By: #### 1 1253-2 ####[facility] LABCLIA [id number] [place] [address] [place] CASE MANAGEMon 01-18-2025 CASE MANAGEM Normal [facility] CASE MANAGEM Normal [facility] CBC panel Auto (Bld)on 01-18 Erythrocyte distribution width (RBC) [Ratio] 14.3 % Normal 11.5-15.0 [facility] Comment on above: Order Comment: Speci men Type: BLOOD SPECIMENOrdering Facility: [facility] Address: [address] [place] [address] Performed By: #### 5 8410-2 ####[facility] LABIA [id number] [place] [address] [place] Hematocrit (Bld) [Volume fraction] 23.7 % Low 36.0-46.0 [facility] Comment on above: Order Comment: Speci men Type: BLOOD SPECIMENOrdering Facility: [facility] Address: [address] [place] [address] Performed By: #### 5 8410-2 ####[facility] LABIA [id number] [place] [address] [place] Hemoglobin (Bld) [Mass/Vol] 7.6 g/dL Low 11.5-15.5 [facility] Comment on above: Order Comment: Speci men Type: BLOOD SPECIMENOrdering Facility: [facility] Address: [address] [place] [address] Performed By: #### 5 8410-2 ####[facility] LABIA [id number] [place] [address] [place] MCH (RBC) [Entitic mass] 29.6 pg Normal 26.0-34.0 [facility] Comment on above: Order Comment: Speci men Type: BLOOD SPECIMENOrdering Facility: [facility] Address: [address] [place] [address] Performed By: #### 5 8410-2 ####[facility] LABIA [id number] [place] [address] [place] MCHC (RBC) [Mass/Vol] 32.1 g/dL Normal 30.5-36.0 [facility] Comment on above: Order Comment: Speci men Type: BLOOD SPECIMENOrdering Facility: [facility] Address: [address] [place] [address] Performed By: #### 5 8410-2 ####[facility] LABIA [id number] [place] [address] [place] MCV (RBC) [Entitic vol] 92.2 fL Normal 80.0-100.0 [facility] Comment on above: Order Comment: Speci men Type: BLOOD SPECIMENOrdering Facility: [facility] Address: [address] [place] [address] Performed By: #### 5 8410-2 ####[facility] LABIA [id number] [place] [address] [place] Nucleated RBC (Bld) [#/Vol] 10*3/uL Normal <0.01 [facility] Comment on above: Order Comment: Speci men Type: BLOOD SPECIMENOrdering Facility: [facility] Address: [address] [place] [address] Performed By: #### 5 8410-2 ####[facility] LABIA [id number] [place] [address] [place] Platelet mean volume (Bld) [Entitic vol] 10.6 fL Normal 9.0-12.7 [facility] Comment on above: Order Comment: Speci men Type: BLOOD SPECIMENOrdering Facility: [facility] Address: [address] [place] [address] Performed By: #### 5 8410-2 ####[facility] LABIA [id number] [place] [address] [place] Platelets (Bld) [#/Vol] 132 10*3/uL Low 150-400 [facility] Comment on above: Order Comment: Speci men Type: BLOOD SPECIMENOrdering Facility: [facility] Address: [address] [place] [address] Performed By: #### 5 8410-2 ####[facility] LABIA [id number] [place] [address] [place] RBC (Bld) [#/Vol] 2.57 10*6/uL Low 3.90-5.20 [facility] Comment on above: Order Comment: Speci men Type: BLOOD SPECIMENOrdering Facility: [facility] Address: [address] [place] [address] Performed By: #### 5 8410-2 ####[facility] LABCLIA [id number] [place] [address] [place] WBC (Bld) [#/Vol] 7.29 10*3/uL Normal 3.70-11.00 [facility] Comment on above: Order Comment: Speci men Type: BLOOD SPECIMENOrdering Facility: [facility] Address: [address] [place] [address] Performed By: #### 5 8410-2 ####[facility] LABCLIA [id number] [place] [address] [place] CNPNon 01-18-2025 CNPN Normal [facility] CONSULT PROGon 01-18-2025 CONSULT PROG Normal [facility] CYTOMEGALOVIRUS (CMV) DNA, Q UANTITATIVE PCR, PLASMAon 01-18-2025 CMV DNA ULICES+probe [#/Vol] 159 IU/mL High [facility] Comment on above: Order Comment: Speci men Type: BLOOD SPECIMENOrdering Facility: [facility] Address: [address] [place] [address] Performed By: #### C MVQNT ####[facility] LABCLIA [id number] [place] [address] [place] CMV DNA ULICES+probe [Log #/Vol] 2.20 log IU/mL High [facility] Comment on above: Order Comment: Speci men Type: BLOOD SPECIMENOrdering Facility: [facility] Address: [address] [place] [address] Performed By: #### C MVQNT ####[facility] LABCLIA [id number] [place] [address] [place] [facility] CMV DNA ULICES+probe Qn (P) Detected Abnormal Not Detected [facility] Comment on above: Order Comment: Speci men Type: BLOOD SPECIMENOrdering Facility: [facility] Address: [address] [place] [address] Performed By: #### C MVQNT ####[facility] LABIA [id number] [place] [address] [place] Magnesium SerPl-mCncon 01-18 Magnesium [Mass/Vol] 1.6 mg/dL Low 1.7-2.3 [facility] Comment on above: Order Comment: Speci men Type: BLOOD SPECIMENOrdering Facility: [facility] Address: [address] [place] [address] Performed By: #### 1 9123-9, 23231-5 ####[facility] [id number] [place] [address] [place] NURSING PROGon 01-18-2025 NURSING PROG Normal [facility] Osmolality Uron 01-18-2025 Osmolality (U) [Osmolality] 300 mosm/kg Normal 50-1200 [facility] Comment on above: Order Comment: Speci men Type: URINE SPECIMENOrdering Facility: [facility] Address: [address] [place] [address] Performed By: #### 2 695-5 ####[facility] [id number] [place] [address] [place] PT panel Coag (PPP)on 2024 INR Coag (PPP) [Relative time] 1.2 {INR} Normal 0.9-1.3 [facility] Comment on above: Order Comment: Speci men Type: BLOOD SPECIMENOrdering Facility: [facility] Address: [address] [place] [address] Result Comment: Zulay min K Antagonist (VKA) Therapeutic Range: INR 2 to 3 (Target INR of 2.5)Note: For patients treated with VKA drugs, such as warfarin, the [place] [employer] 2012 Guideline recommends [...] al. Chest 2012, 141:7S-47SNishimura RA, et al. [facility] 2017, 70: 252-289 Performed By: #### 3 4528-0 ####[facility] LABIA [id number] [place] [address] [place] PT Coag (PPP) [Time] 12.6 s Normal 9.7-13.0 [facility] Comment on above: Order Comment: Speci men Type: BLOOD SPECIMENOrdering Facility: [facility] Address: [address] [place] [address] Performed By: #### 3 4528-0 ####[facility] LABIA [id number] [place] [address] [place] Renal function 2000 panelon 01-18-2025 Albumin [Mass/Vol] 2.9 g/dL Low 3.9-4.9 [facility] Comment on above: Order Comment: Speci men Type: BLOOD SPECIMENOrdering Facility: [facility] Address: [address] [place] [address] Performed By: #### 1 9123-9, 60544-0 ####[facility] LABIA [id number] [place] [address] [place] Anion gap [Moles/Vol] 13 mmol/L Normal 8-15 [facility] Comment on above: Order Comment: Speci men Type: BLOOD SPECIMENOrdering Facility: [facility] Address: [address] [place] [address] Performed By: #### 1 9123-9, 81832-2 ####[facility] LABCLIA [id number] [place] [address] [place] Calcium [Mass/Vol] 6.9 mg/dL Low 8.5-10.2 [facility] Comment on above: Order Comment: Speci men Type: BLOOD SPECIMENOrdering Facility: [facility] Address: [address] [place] [address] Performed By: #### 1 9123-9, 78198-9 ####[facility] LABCLIA [id number] [place] [address] [place] Chloride [Moles/Vol] 103 mmol/L Normal 98-107 [facility] Comment on above: Order Comment: Speci men Type: BLOOD SPECIMENOrdering Facility: [facility] Address: [address] [place] [address] Performed By: #### 1 9123-9, 86861-6 ####[facility] LABCLIA [id number] [place] [address] [place] CO2 [Moles/Vol] 15 mmol/L Low 22-30 [facility] Comment on above: Order Comment: Speci men Type: BLOOD SPECIMENOrdering Facility: [facility] Address: [address] [place] [address] Performed By: #### 1 9123-9, 44382-4 ####[facility] LABCLIA [id number] [place] [address] [place] Creatinine [Mass/Vol] 2.50 mg/dL High 0.58-0.96 [facility] Comment on above: Order Comment: Speci men Type: BLOOD SPECIMENOrdering Facility: [facility] Address: [address] [place], [place] [address] Performed By: #### 1 9123-9, 73153-5 ####[facility] LABCLIA [id number] [place] [address] [place] Creatinine and Glomerular filtration rate.predicted panel (S/P/Bld) 19 mL/min/1.73m??? Low >=60 [facility] Comment on above: Order Comment: Víctor friend Type: BLOOD SPECIMENOrdering Facility: [facility] Address: [address] [place] [address] Result Comment: Kelsey mated Glomerular Filtration Rate [...] actual GFR. Performed By: #### 1 9123-9, 86921-1 ####[facility] [id number] [place] [address] [place] Glucose [Mass/Vol] 120 mg/dL High 74-99 [facility] Comment on above: Order Comment: Víctor friend Type: BLOOD SPECIMENOrdering Facility: [facility] Address: [address] [place] [address] Result Comment: The [place] [employer] (ADA) provides guidance for cutoff [...] Standards of Medical Care in Diabetes 2016, [place] [employer]. Diabetes Care. 2016.39(Suppl 1). Performed By: #### 1 9123-9, 31619-3 ####[facility] LABCLIA [id number] [place] [address] [place] Phosphate [Mass/Vol] 3.0 mg/dL Normal 2.7-4.8 [facility] Comment on above: Order Comment: Speci men Type: BLOOD SPECIMENOrdering Facility: [facility] Address: [address] [place] [address] Performed By: #### 1 9123-9, 45723-1 ####[facility] LABCLIA [id number] [place] [address] [place] Potassium [Moles/Vol] 4.9 mmol/L Normal 3.7-5.1 [facility] Comment on above: Order Comment: Speci men Type: BLOOD SPECIMENOrdering Facility: [facility] Address: [address] [place] [address] Performed By: #### 1 9123-9, 98783-1 ####[facility] LABIA [id number] [place] [address] [place] Sodium [Moles/Vol] 131 mmol/L Low 136-144 [facility] Comment on above: Order Comment: Speci men Type: BLOOD SPECIMENOrdering Facility: [facility] Address: [address] [place] [address] Performed By: #### 1 9123-9, 74520-3 ####[facility] LABIA [id number] [place] [address] [place] Urea nitrogen [Mass/Vol] 58 mg/dL High 7-21 [facility] Comment on above: Order Comment: Speci men Type: BLOOD SPECIMENOrdering Facility: [facility] Address: [address] [place] [address] Performed By: #### 1 9123-9, 45400-2 ####[facility] LABCLIA [id number] [place] [address] [place] Sodium ?Tm Ur-sCncon 025 Sodium Unsp time (U) [Moles/Vol] 90 mmol/L Normal 14-216 [facility] Comment on above: Order Comment: Speci men Type: URINE SPECIMENOrdering Facility: [facility] Address: [address] [place] [address] Performed By: #### 3 5678-2 ####[facility] LABCLIA [id number] [place] [address] [place] THERAPY NTon 01-18-2025 THERAPY NT Normal [facility] Tacrolimus Bld-mCncon 2024 Tacrolimus (Bld) [Mass/Vol] 15.1 ng/mL Normal 5.0-20.0 [facility] Comment on above: Order Comment: Speci men Type: BLOOD SPECIMENOrdering Facility: [facility] Address: [address] [place] [address] Result Comment: Ema vidualized target levels for [...] Alinity i. Performed By: #### 1 1253-2 ####[facility] LABCLIA [id number] [place] [address] [place] CBC panel Auto (Bld)on 01-17 Erythrocyte distribution width (RBC) [Ratio] 14.4 % Normal 11.5-15.0 [facility] Comment on above: Order Comment: Speci men Type: BLOOD SPECIMENOrdering Facility: [facility] Address: [address] [place] [address] Performed By: #### 5 8410-2 ####[facility] LABCLIA [id number] [place] [address] [place] Hematocrit (Bld) [Volume fraction] 27.0 % Low 36.0-46.0 [facility] Comment on above: Order Comment: Speci men Type: BLOOD SPECIMENOrdering Facility: [facility] Address: [address] [place] [address] Performed By: #### 5 8410-2 ####[facility] LABIA [id number] [place] [address] [place] Hemoglobin (Bld) [Mass/Vol] 8.5 g/dL Low 11.5-15.5 [facility] Comment on above: Order Comment: Speci men Type: BLOOD SPECIMENOrdering Facility: [facility] Address: [address] [place] [address] Performed By: #### 5 8410-2 ####[facility] [id number] [place] [address] [place] MCH (RBC) [Entitic mass] 29.3 pg Normal 26.0-34.0 [facility] Comment on above: Order Comment: Speci men Type: BLOOD SPECIMENOrdering Facility: [facility] Address: [address] [place] [address] Performed By: #### 5 8410-2 ####[facility] [id number] [place] [address] [place] MCHC (RBC) [Mass/Vol] 31.5 g/dL Normal 30.5-36.0 [facility] Comment on above: Order Comment: Speci men Type: BLOOD SPECIMENOrdering Facility: [facility] Address: [address] [place] [address] Performed By: #### 5 8410-2 ####[facility] [id number] [place] [address] [place] MCV (RBC) [Entitic vol] 93.1 fL Normal 80.0-100.0 [facility] Comment on above: Order Comment: Speci men Type: BLOOD SPECIMENOrdering Facility: [facility] Address: [address] [place] [address] Performed By: #### 5 8410-2 ####[facility] LABCLIA [id number] [place] [address] [place] Nucleated RBC (Bld) [#/Vol] 10*3/uL Normal <0.01 [facility] Comment on above: Order Comment: Speci men Type: BLOOD SPECIMENOrdering Facility: [facility] Address: [address] [place] [address] Performed By: #### 5 8410-2 ####[facility] LABIA [id number] [place] [address] [place] Platelet mean volume (Bld) [Entitic vol] 11.0 fL Normal 9.0-12.7 [facility] Comment on above: Order Comment: Speci men Type: BLOOD SPECIMENOrdering Facility: [facility] Address: [address] [place] [address] Performed By: #### 5 8410-2 ####[facility] LABIA [id number] [place] [address] [place] Platelets (Bld) [#/Vol] 125 10*3/uL Low 150-400 [facility] Comment on above: Order Comment: Speci men Type: BLOOD SPECIMENOrdering Facility: [facility] Address: [address] [place] [address] Performed By: #### 5 8410-2 ####[facility] LABIA [id number] [place] [address] [place] RBC (Bld) [#/Vol] 2.90 10*6/uL Low 3.90-5.20 [facility] Comment on above: Order Comment: Speci men Type: BLOOD SPECIMENOrdering Facility: [facility] Address: [address] [place] [address] Performed By: #### 5 8410-2 ####[facility] LABIA [id number] [place] [id number] [place] WBC (Bld) [#/Vol] 8.76 10*3/uL Normal 3.70-11.00 [facility] Comment on above: Order Comment: Víctor friend Type: BLOOD SPECIMENOrdering Facility: [facility] Address: [address] [place] [address] Performed By: #### 5 8410-2 ####[facility] LABIA [id number] [place] [address] [place] Magnesium SerPl-mCncon 01-17 Magnesium [Mass/Vol] 2.2 mg/dL Normal 1.7-2.3 [facility] Comment on above: Order Comment: Víctor friend Type: BLOOD SPECIMENOrdering Facility: [facility] Address: [address] [place] [address] Performed By: #### 1 9123-9, 28326-6 ####[facility] [id number] [place] [address] [place] PT panel Coag (PPP)on 2024 INR Coag (PPP) [Relative time] 1.2 {INR} Normal 0.9-1.3 [facility] Comment on above: Order Comment: Víctor friend Type: BLOOD SPECIMENOrdering Facility: [facility] Address: [address] [place] [address] Result Comment: Zulay min K Antagonist (VKA) Therapeutic Range: INR 2 to 3 (Target INR of 2.5)Note: For patients treated with VKA drugs, such as warfarin, the [place] [employer] 2012 Guideline recommends [...] al. Chest 2012, 141:7S-47SNishimura RA, et al. [facility] 2017, 70: 252-289 Performed By: #### 3 4528-0 ####[facility] LABCLIA [id number] [place] [id number] [place] PT Coag (PPP) [Time] 12.6 s Normal 9.7-13.0 [facility] Comment on above: Order Comment: Speci men Type: BLOOD SPECIMENOrdering Facility: [facility] Address: [address] [place] [address] Performed By: #### 3 4528-0 ####[facility] LABIA [id number] [place] [address] [place] Renal function 2000 panelon 01-17-2025 Albumin [Mass/Vol] 2.8 g/dL Low 3.9-4.9 [facility] Comment on above: Order Comment: Speci men Type: BLOOD SPECIMENOrdering Facility: [facility] Address: [address] [place] [address] Performed By: #### 1 9123-9, 36981-6 ####[facility] LABCLIA [id number] [place] [address] [place] Anion gap [Moles/Vol] 11 mmol/L Normal 8-15 [facility] Comment on above: Order Comment: Speci men Type: BLOOD SPECIMENOrdering Facility: [facility] Address: [address] [place] [address] Performed By: #### 1 9123-9, 51861-8 ####[facility] LABCLIA [id number] [place] [id number] [place] Calcium [Mass/Vol] 6.5 mg/dL Low 8.5-10.2 [facility] Comment on above: Order Comment: Speci men Type: BLOOD SPECIMENOrdering Facility: [facility] Address: [address] [place] [address] Performed By: #### 1 9123-9, 68428-6 ####[facility] LABCLIA [id number] [place] [address] [place] Chloride [Moles/Vol] 104 mmol/L Normal 98-107 [facility] Comment on above: Order Comment: Speci men Type: BLOOD SPECIMENOrdering Facility: [facility] Address: [address] [place] [address] Performed By: #### 1 9123-9, 67749-3 ####[facility] LABCLIA [id number] [place] [address] [place] CO2 [Moles/Vol] 20 mmol/L Low 22-30 [facility] Comment on above: Order Comment: Speci men Type: BLOOD SPECIMENOrdering Facility: [facility] Address: [address] [place] [address] Performed By: #### 1 9123-9, 31924-8 ####[facility] LABCLIA [id number] [place] [address] [place] Creatinine [Mass/Vol] 2.77 mg/dL High 0.58-0.96 [facility] Comment on above: Order Comment: Speci men Type: BLOOD SPECIMENOrdering Facility: [facility] Address: [address] [place] [address] Performed By: #### 1 9123-9, 47536-6 ####[facility] LABCLIA [id number] [place] [address] [place] Creatinine and Glomerular filtration rate.predicted panel (S/P/Bld) 17 mL/min/1.73m??? Low >=60 [facility] Comment on above: Order Comment: Speci men Type: BLOOD SPECIMENOrdering Facility: [facility] Address: [address] [place] [address] Result Comment: Kelsey mated Glomerular Filtration Rate [...] actual GFR. Performed By: #### 1 9123-9, 02163-6 ####[facility] LABCLIA [id number] [facility] [place] [address] [place] Glucose [Mass/Vol] 142 mg/dL High 74-99 [facility] Comment on above: Order Comment: Víctor friend Type: BLOOD SPECIMENOrdering Facility: [facility] Address: [address] [place] [address] Result Comment: The [place] [employer] (ADA) provides guidance for cutoff [...] Standards of Medical Care in Diabetes 2016, [place] [employer]. Diabetes Care. 2016.39(Suppl 1). Performed By: #### 1 9123-9, 04767-2 ####[facility] LABIA [id number] [place] [address] [place] Phosphate [Mass/Vol] 2.9 mg/dL Normal 2.7-4.8 [facility] Comment on above: Order Comment: Víctor friend Type: BLOOD SPECIMENOrdering Facility: [facility] Address: [address] [place] [address] Performed By: #### 1 9123-9, 76770-3 ####[facility] LABCLIA [id number] [place] [address] [place] Potassium [Moles/Vol] 4.0 mmol/L Normal 3.7-5.1 [facility] Comment on above: Order Comment: Speci men Type: BLOOD SPECIMENOrdering Facility: [facility] Address: [address] [place] [address] Performed By: #### 1 9123-9, 69433-6 ####[facility] LABCLIA [id number] [place] [address] [place] Sodium [Moles/Vol] 135 mmol/L Low 136-144 [facility] Comment on above: Order Comment: Verenai men Type: BLOOD SPECIMENOrdering Facility: [facility] Address: [address] [place] [address] Performed By: #### 1 9123-9, 98926-5 ####[facility] LABCLIA [id number] [place] [address] [place] Urea nitrogen [Mass/Vol] 59 mg/dL High 7-21 [facility] Comment on above: Order Comment: Speci men Type: BLOOD SPECIMENOrdering Facility: [facility] Address: [address] [place] [address] Performed By: #### 1 9123-9, 50964-0 ####[facility] LABIA [id number] [place] [address] [place] Tacrolimus Bld-ncon 2024 Tacrolimus (Bld) [Mass/Vol] 12.8 ng/mL Normal 5.0-20.0 [facility] Comment on above: Order Comment: Speci men Type: BLOOD SPECIMENOrdering Facility: [facility] Address: [address] [place] [address] Result Comment: Ema vidualized target levels for [...] Alinity i. Performed By: #### 1 1253-2 ####[facility] LABIA [id number] [place] [address] [place] CBC panel Auto (Bld)on 01-16 Erythrocyte distribution width (RBC) [Ratio] 14.7 % Normal 11.5-15.0 [facility] Comment on above: Order Comment: Speci men Type: BLOOD SPECIMENOrdering Facility: [facility] Address: [address] [place] [address] Performed By: #### 5 8410-2, 83333-7 ####[facility] [id number] [place] [address] [place] Hematocrit (Bld) [Volume fraction] 24.0 % Low 36.0-46.0 [facility] Comment on above: Order Comment: Speci men Type: BLOOD SPECIMENOrdering Facility: [facility] Address: [address] [place] [address] Performed By: #### 5 8410-2, 45872-0 ####[facility] LABIA [id number] [place] [address] [place] Hemoglobin (Bld) [Mass/Vol] 7.7 g/dL Low 11.5-15.5 [facility] Comment on above: Order Comment: Speci men Type: BLOOD SPECIMENOrdering Facility: [facility] Address: [address] [place] [address] Performed By: #### 5 8410-2, 79377-7 ####[facility] LABIA [id number] [place] [address] [place] MCH (RBC) [Entitic mass] 29.8 pg Normal 26.0-34.0 [facility] Comment on above: Order Comment: Speci men Type: BLOOD SPECIMENOrdering Facility: [facility] Address: [address] [place] [address] Performed By: #### 5 8410-2, 91299-7 ####[facility] LABIA [id number] [place] [address] [place] MCHC (RBC) [Mass/Vol] 32.1 g/dL Normal 30.5-36.0 [facility] Comment on above: Order Comment: Speci men Type: BLOOD SPECIMENOrdering Facility: [facility] Address: [address] [place] [address] Performed By: #### 5 8410-2, 99826-9 ####[facility] LABIA [id number] [place] [address] [place] MCV (RBC) [Entitic vol] 93.0 fL Normal 80.0-100.0 [facility] Comment on above: Order Comment: Speci men Type: BLOOD SPECIMENOrdering Facility: [facility] Address: [address] [place] [address] Performed By: #### 5 8410-2, 79507-8 ####[facility] [id number] [place] [address] [place] Nucleated RBC (Bld) [#/Vol] 0.02 10*3/uL High <0.01 [facility] Comment on above: Order Comment: Speci men Type: BLOOD SPECIMENOrdering Facility: [facility] Address: [address] [place] [address] Performed By: #### 5 8410-2, 59986-9 ####[facility] LABIA [id number] [place] [address] [place] Platelet mean volume (Bld) [Entitic vol] 11.6 fL Normal 9.0-12.7 [facility] Comment on above: Order Comment: Speci men Type: BLOOD SPECIMENOrdering Facility: [facility] Address: [address] [place] [address] Performed By: #### 5 8410-2, 00550-2 ####[facility] LABCLIA [id number] [place] [address] [place] Platelets (Bld) [#/Vol] 84 10*3/uL Low 150-400 [facility] Comment on above: Order Comment: Speci men Type: BLOOD SPECIMENOrdering Facility: [facility] Address: [address] [place] [address] Result Comment: No c lot detected. Performed By: #### 5 8410-2, 15940-9 ####[facility] LABIA [id number] [place] [address] [place] RBC (Bld) [#/Vol] 2.58 10*6/uL Low 3.90-5.20 [facility] Comment on above: Order Comment: Speci men Type: BLOOD SPECIMENOrdering Facility: [facility] Address: [address] [place] [address] Performed By: #### 5 8410-2, 94417-1 ####[facility] LABIA [id number] [place] [address] [place] WBC (Bld) [#/Vol] 9.03 10*3/uL Normal 3.70-11.00 [facility] Comment on above: Order Comment: Speci men Type: BLOOD SPECIMENOrdering Facility: [facility] Address: [address] [place] [address] Performed By: #### 5 8410-2, 64419-8 ####[facility] LABIA [id number] [place] [address] [place] Fibrinogen PPP-mCncon 2024 Fibrinogen Coag (PPP) [Mass/Vol] 161 mg/dL Low 200-400 [facility] Comment on above: Order Comment: Speci men Type: BLOOD SPECIMENOrdering Facility: [facility] Address: [address] [place] [address] Performed By: #### 3 4528-0, 3254-7 ####[facility] [id number] [place] [address] [place] Magnesium SerPl-mCncon 01-16 Magnesium [Mass/Vol] 1.5 mg/dL Low 1.7-2.3 [facility] Comment on above: Order Comment: Víctor friend Type: BLOOD SPECIMENOrdering Facility: [facility] Address: [address] [place] [address] Performed By: #### 2 4362-6, 20637-5 ####[facility] [id number] [address] [place] PT panel Coag (PPP)on 2024 INR Coag (PPP) [Relative time] 1.3 {INR} Normal 0.9-1.3 [facility] Comment on above: Order Comment: Víctor friend Type: BLOOD SPECIMENOrdering Facility: [facility] Address: [address] [place] [address] Result Comment: Zulay min K Antagonist (VKA) Therapeutic Range: INR 2 to 3 (Target INR of 2.5)Note: For patients treated with VKA drugs, such as warfarin, the [place] [employer] 2012 Guideline recommends [...] al. Chest 2012, 141:7S-47SAnais YIN, et al. JACC 2017, 70: 252-289 Performed By: #### 3 4528-0, 3255-7 ####[facility] LABCLIA [id number] [facility] [address] [address] [place] PT Coag (PPP) [Time] 14.0 s High 9.7-13.0 [facility] Comment on above: Order Comment: Speci men Type: BLOOD SPECIMENOrdering Facility: [facility] Address: [address] [place] [address] Performed By: #### 3 4528-0, 7 ####[facility] LABCLIA [id number] [address] [address] [place] Renal function 2000 panelon 01-16-2025 Albumin [Mass/Vol] 2.5 g/dL Low 3.9-4.9 [facility] Comment on above: Order Comment: Speci men Type: BLOOD SPECIMENOrdering Facility: [facility] Address: [address] [place] [address] Performed By: #### 2 4362-6, ####[facility] LABIA [id number] [place] [address] [place] Anion gap [Moles/Vol] 10 mmol/L Normal 8-15 [facility] Comment on above: Order Comment: Speci men Type: BLOOD SPECIMENOrdering Facility: [facility] Address: [address] [place] [address] Performed By: #### 2 4362-6, ####[facility] LABCLIA [id number] [place] [id number] [place] Calcium [Mass/Vol] 5.8 mg/dL Low 8.5-10.2 [facility] Comment on above: Order Comment: Speci men Type: BLOOD SPECIMENOrdering Facility: [facility] Address: [address] [place] [address] Performed By: #### 2 4362-6, ####[facility] LABCLIA [id number] [place] [address] [place] Chloride [Moles/Vol] 105 mmol/L Normal 98-107 [facility] Comment on above: Order Comment: Speci men Type: BLOOD SPECIMENOrdering Facility: [facility] Address: [address] [place] [address] Performed By: #### 2 4362-6, ####[facility] LABCLIA [id number] [place] [address] [place] CO2 [Moles/Vol] 19 mmol/L Low 22-30 [facility] Comment on above: Order Comment: Speci men Type: BLOOD SPECIMENOrdering Facility: [facility] Address: [address] [place] [address] Performed By: #### 2 4362-6, ####[facility] LABCLIA [id number] [place] [address] [place] Creatinine [Mass/Vol] 2.82 mg/dL High 0.58-0.96 [facility] Comment on above: Order Comment: Speci men Type: BLOOD SPECIMENOrdering Facility: [facility] Address: [address] [place] [address] Performed By: #### 2 4362-6, ####[facility] LABIA [id number] [place] [address] [place] Creatinine and Glomerular filtration rate.predicted panel (S/P/Bld) 16 mL/min/1.73m??? Low >=60 [facility] Comment on above: Order Comment: Speci men Type: BLOOD SPECIMENOrdering Facility: [facility] Address: [address] [place] [address] Result Comment: Kelsey mated Glomerular Filtration Rate [...] actual GFR. Performed By: #### 2 4362-6, ####[facility] LABIA [id number] [address] [address] [place] Glucose [Mass/Vol] 125 mg/dL High 74-99 [facility] Comment on above: Order Comment: Víctor friend Type: BLOOD SPECIMENOrdering Facility: [facility] Address: [address] [place] [address] Result Comment: The [place] [employer] (ADA) provides guidance for cutoff [...] Standards of Medical Care in Diabetes 2016, [place] [employer]. Diabetes Care. 2016.39(Suppl 1). Performed By: #### 2 4362-6, ####[facility] LABIA [id number] [address] [address] [place] Phosphate [Mass/Vol] 2.4 mg/dL Low 2.7-4.8 [facility] Comment on above: Order Comment: Víctor friend Type: BLOOD SPECIMENOrdering Facility: [facility] Address: [address] [place] [address] Performed By: #### 2 4362-6, ####[facility] LABIA [id number] [address] [address] [place] Potassium [Moles/Vol] 4.0 mmol/L Normal 3.7-5.1 [facility] Comment on above: Order Comment: Speci men Type: BLOOD SPECIMENOrdering Facility: [facility] Address: [address] [place] [address] Performed By: #### 2 4362-6, ####[facility] LABCLIA [id number] [place] [address] [place] Sodium [Moles/Vol] 134 mmol/L Low 136-144 [facility] Comment on above: Order Comment: Speci men Type: BLOOD SPECIMENOrdering Facility: [facility] Address: [address] [place] [address] Performed By: #### 2 4362-6, ####[facility] LABCLIA [id number] [place] [address] [place] Urea nitrogen [Mass/Vol] 55 mg/dL High 7-21 [facility] Comment on above: Order Comment: Speci men Type: BLOOD SPECIMENOrdering Facility: [facility] Address: [address] [place] [address] Performed By: #### 2 4362-6, ####[facility] LABIA [id number] [place] [address] [place] Tacrolimus Bld-mCncon 2024 Tacrolimus (Bld) [Mass/Vol] 17.9 ng/mL Normal 5.0-20.0 [facility] Comment on above: Order Comment: Speci men Type: BLOOD SPECIMENOrdering Facility: [facility] Address: [address] [place] [address] Result Comment: Ema vidualized target levels for [...] situation. Test performed by chemiluminescent immunoassay using salgomed Alinity i. Performed By: #### 5 8410-2, 12393-6 ####[facility] LABCLIA [id number] [address] [address] [place] ALLIED HEALTHon 01-15-2025 ALLIED HEALTH Normal [facility] Basic metabolic 2000 panelon 01-15-2025 Anion gap [Moles/Vol] 11 mmol/L Normal 8-15 [facility] Comment on above: Order Comment: Speci men Type: BLOOD SPECIMENOrdering Facility: [facility] Address: [address] [place] [address] Performed By: #### 2 4321-2, 2777-1, HSTNT, ####[facility] LABCLIA [id number] [place] [id number] [place] Calcium [Mass/Vol] 6.4 mg/dL Low 8.5-10.2 [facility] Comment on above: Order Comment: Speci men Type: BLOOD SPECIMENOrdering Facility: [facility] Address: [address] [place] [address] Performed By: #### 2 4321-2, 2777-1, HSTNT, ####[facility] LABCLIA [id number] [place] [id number] [place] Chloride [Moles/Vol] 106 mmol/L Normal 98-107 [facility] Comment on above: Order Comment: Speci men Type: BLOOD SPECIMENOrdering Facility: [facility] Address: [address] [place] [address] Performed By: #### 2 4321-2, 2777-1, HSTNT, ####[facility] LABCLIA [id number] [place] [id number] [place] CO2 [Moles/Vol] 20 mmol/L Low 22-30 [facility] Comment on above: Order Comment: Speci men Type: BLOOD SPECIMENOrdering Facility: [facility] Address: [address] [place] [address] Performed By: #### 2 4321-2, 2777-1, HSTNT, ####[facility] LABIA [id number] [place] [id number] [place] Creatinine [Mass/Vol] 3.22 mg/dL High 0.58-0.96 [facility] Comment on above: Order Comment: Speci men Type: BLOOD SPECIMENOrdering Facility: [facility] Address: [address] [place] [address] Performed By: #### 2 4321-2, 2777-1, HSTNT, ####[facility] [id number] [place] [address] [place] Creatinine and Glomerular filtration rate.predicted panel (S/P/Bld) 14 mL/min/1.73m??? Low >=60 [facility] Comment on above: Order Comment: Verenai men Type: BLOOD SPECIMENOrdering Facility: [facility] Address: [address] [place] [address] Result Comment: Kelsey mated Glomerular Filtration Rate [...] Performed By: #### 2 4321-2, 2776-1, HSTNT, ####[facility] LABIA [id number] [address] [address] [place] Glucose [Mass/Vol] 84 mg/dL Normal 74-99 [facility] Comment on above: Order Comment: Verenai men Type: BLOOD SPECIMENOrdering Facility: [facility] Address: [address] [place] [address] Result Comment: The [place] [employer] (ADA) provides guidance for cutoff [...] Standards of Medical Care in Diabetes 2016, [place] [employer]. Diabetes Care. 2016.39(Suppl 1). Performed By: #### 2 4321-2, 2777-1, HSTNT, ####[facility] LABIA [id number] [place] [address] [place] Potassium [Moles/Vol] 4.0 mmol/L Normal 3.7-5.1 [facility] Comment on above: Order Comment: Speci men Type: BLOOD SPECIMENOrdering Facility: [facility] Address: [address] [place] [address] Performed By: #### 2 4321-2, 2776-1, HSTNT, ####[facility] [id number] [place] [address] [place] Sodium [Moles/Vol] 137 mmol/L Normal 136-144 [facility] Comment on above: Order Comment: Speci men Type: BLOOD SPECIMENOrdering Facility: [facility] Address: [address] [place] [address] Performed By: #### 2 4321-2, 277-1, HSTNT, ####[facility] LABIA [id number] [place] [id number] [place] Urea nitrogen [Mass/Vol] 64 mg/dL High 7-21 [facility] Comment on above: Order Comment: Speci men Type: BLOOD SPECIMENOrdering Facility: [facility] Address: [address] [place] [address] Performed By: #### 2 4321-2, 2777-1, HSTNT, 04907-7 ####[facility] LABCLIA [id number] [place] [address] [place] CASE MANAGEMon 01-15-2025 CASE MANAGEM Normal [facility] CBC panel Auto (Bld)on 01-15 Erythrocyte distribution width (RBC) [Ratio] 14.6 % Normal 11.5-15.0 [facility] Comment on above: Order Comment: Speci men Type: BLOOD SPECIMENOrdering Facility: [facility] Address: [address] [place] [address] Performed By: #### 5 8410-2 ####[facility] LABIA [id number] [place] [address] [place] Hematocrit (Bld) [Volume fraction] 25.3 % Low 36.0-46.0 [facility] Comment on above: Order Comment: Speci men Type: BLOOD SPECIMENOrdering Facility: [facility] Address: [address] [place] [address] Performed By: #### 5 8410-2 ####[facility] LABIA [id number] [place] [address] [place] Hemoglobin (Bld) [Mass/Vol] 8.2 g/dL Low 11.5-15.5 [facility] Comment on above: Order Comment: Speci men Type: BLOOD SPECIMENOrdering Facility: [facility] Address: [address] [place] [address] Performed By: #### 5 8410-2 ####[facility] LABIA [id number] [place] [address] [place] MCH (RBC) [Entitic mass] 29.2 pg Normal 26.0-34.0 [facility] Comment on above: Order Comment: Speci men Type: BLOOD SPECIMENOrdering Facility: [facility] Address: [address] [place] [address] Performed By: #### 5 8410-2 ####[facility] LABIA [id number] [place] [address] [place] MCHC (RBC) [Mass/Vol] 32.4 g/dL Normal 30.5-36.0 [facility] Comment on above: Order Comment: Speci men Type: BLOOD SPECIMENOrdering Facility: [facility] Address: [address] [place] [address] Performed By: #### 5 8410-2 ####[facility] LABIA [id number] [place] [address] [place] MCV (RBC) [Entitic vol] 90.0 fL Normal 80.0-100.0 [facility] Comment on above: Order Comment: Speci men Type: BLOOD SPECIMENOrdering Facility: [facility] Address: [address] [place] [address] Performed By: #### 5 8410-2 ####[facility] LABIA [id number] [place] [address] [place] Nucleated RBC (Bld) [#/Vol] 10*3/uL Normal <0.01 [facility] Comment on above: Order Comment: Speci men Type: BLOOD SPECIMENOrdering Facility: [facility] Address: [address] [place] [address] Performed By: #### 5 8410-2 ####[facility] LABIA [id number] [place] [address] [place] Platelet mean volume (Bld) [Entitic vol] 11.6 fL Normal 9.0-12.7 [facility] Comment on above: Order Comment: Speci men Type: BLOOD SPECIMENOrdering Facility: [facility] Address: [address] [place] [address] Performed By: #### 5 8410-2 ####[facility] LABIA [id number] [place] [address] [place] Platelets (Bld) [#/Vol] 58 10*3/uL Low 150-400 [facility] Comment on above: Order Comment: Speci men Type: BLOOD SPECIMENOrdering Facility: [facility] Address: [address] [place] [address] Performed By: #### 5 8410-2 ####[facility] LABCLIA [id number] [place] [address] [place] RBC (Bld) [#/Vol] 2.81 10*6/uL Low 3.90-5.20 [facility] Comment on above: Order Comment: Speci men Type: BLOOD SPECIMENOrdering Facility: [facility] Address: [address] [place] [address] Performed By: #### 5 8410-2 ####[facility] LABCLIA [id number] [place] [address] [place] WBC (Bld) [#/Vol] 11.14 10*3/uL High 3.70-11.00 [facility] Comment on above: Order Comment: Speci men Type: BLOOD SPECIMENOrdering Facility: [facility] Address: [address] [place] [address] Performed By: #### 5 8410-2 ####[facility] LABCLIA [id number] [place] [address] [place] CONSULTon 01-15-2025 CONSULT Normal [facility] CONSULT Normal [facility] CONSULT Normal [facility] CONSULT PROGon 01-15-2025 CONSULT PROG Normal [facility] CONSULT PROG Normal [facility] HIGH SENSITIVITY TROPONIN To n 01-15-2025 Troponin T.cardiac High sensitivity method [Mass/Vol] 21 ng/L High <12 [facility] Comment on above: Order Comment: Speci men Type: BLOOD SPECIMENOrdering Facility: [facility] Address: [address] [place] [address] Performed By: #### H STNT ####[facility] LABCLIA [id number] [place] [address] [place] Troponin T.cardiac High sensitivity method [Mass/Vol] 20 ng/L High <12 [facility] Comment on above: Order Comment: Víctor friend Type: BLOOD SPECIMENOrdering Facility: [facility] Address: [address] [place] [address] Performed By: #### 2 4321-2, 2777-1, HSTNT, 46687-1 ####[facility] LABCLIA [id number] [place] [id number] [place] Magnesium SerPl-mCncon 01-15 Magnesium [Mass/Vol] 1.4 mg/dL Low 1.7-2.3 [facility] Comment on above: Order Comment: Víctor friend Type: BLOOD SPECIMENOrdering Facility: [facility] Address: [address] [place] [address] Performed By: #### 2 4321-2, 2777-1, HSTNT, ####[facility] LABIA [id number] [place] [address] [place] PT panel Coag (PPP)on 2024 INR Coag (PPP) [Relative time] 1.3 {INR} Normal 0.9-1.3 [facility] Comment on above: Order Comment: Víctor friend Type: BLOOD SPECIMENOrdering Facility: [facility] Address: [address] [place] [address] Result Comment: Zulay min K Antagonist (VKA) Therapeutic Range: INR 2 to 3 (Target INR of 2.5)Note: For patients treated with VKA drugs, such as warfarin, the [place] [employer] 2012 Guideline recommends [...] al. Chest 2012, 141:7S-47SNishimjoaquin RA, et al. [facility] 2017, 70: 252-289 Performed By: #### 3 4528-0 ####[facility] LABIA [id number] [place] [address] [place] PT Coag (PPP) [Time] 13.7 s High 9.7-13.0 [facility] Comment on above: Order Comment: Speci men Type: BLOOD SPECIMENOrdering Facility: [facility] Address: [address] [place] [address] Performed By: #### 3 4528-0 ####[facility] LABIA [id number] [place] [address] [place] Phosphate SerPl-mCncon 01-15 Phosphate [Mass/Vol] 2.7 mg/dL Normal 2.7-4.8 [facility] Comment on above: Order Comment: Speci men Type: BLOOD SPECIMENOrdering Facility: [facility] Address: [address] [place] [address] Performed By: #### 2 4321-2, 2777-1, HSTNT, 35414-8 ####[facility] LABIA [id number] [place] [address] [place] THERAPY NTon 01-15-2025 THERAPY NT Normal [facility] TYPE + SCREENon 01-15-2025 ABO O Normal [facility] Comment on above: Order Comment: Speci men Type: BLOOD SPECIMENOrdering Facility: [facility] Address: [address] [place] [address] Performed By: #### T SCR ####[facility] BLOOD BANKCLIA [id number] [address] [place] Rh Nom (Bld) Negative Normal [facility] Comment on above: Order Comment: Speci men Type: BLOOD SPECIMENOrdering Facility: [facility] Address: [address] [place] [address] Performed By: #### T SCR ####CC [facility] BLO[facility] BANKCLIA [id number] [place] [address] [place] TYPE AND SCREEN EXPIRATION 01/18/2025 23:59 Normal [facility] Comment on above: Order Comment: Speci men Type: BLOOD SPECIMENOrdering Facility: [facility] Address: [address] [place] [address] Performed By: #### T SCR ####CC [facility] BLOOD BANKIA [id number] [address] [place] Tacrolimus Bld-mCncon 2024 Tacrolimus (Bld) [Mass/Vol] 6.4 ng/mL Normal 5.0-20.0 [facility] Comment on above: Order Comment: Speci men Type: BLOOD SPECIMENOrdering Facility: [facility] Address: [address] [place] [address] Result Comment: Ema vidualized target levels for [...] situation. Test performed by chemiluminescent immunoassay using salgomed Alinity i. Performed By: #### 1 1253-2 ####[facility] LABCLIA [id number] [place] [address] [place] XR CHEST 1V FRONTAL PORTon 0 01-15-2025 XR CHEST 1V FRONTAL PORT Normal [facility] ANTI PLT FACTOR 4 ABon 01-14 Heparin induced platelet IgG Frederick (S) [Interp] Negative Normal Negative [facility] Comment on above: Order Comment: Speci men Type: BLOOD SPECIMENOrdering Facility: [facility] Address: [address] [place] [address] Result Comment: No a nti-platelet factor 4 IgG antibody is detected by RICK assay.Heparin-induced thrombocytopenia (HIT) is unlikely, but should be excluded based on clinical factors. Performed By: #### P LATF4 ####[facility] LABIA [id number] [place] [address] [place] Platelet factor 4 Qn (PPP) 0.116 OD Normal <0.400 [facility] Comment on above: Order Comment: Speci men Type: BLOOD SPECIMENOrdering Facility: [facility] Address: [address] [place] [address] Result Comment: Not calculated Performed By: #### P LATF4 ####[facility] LABIA [id number] [place] [address] [place] Basic metabolic 2000 panelon 01-14-2025 Anion gap [Moles/Vol] 13 mmol/L Normal 8-15 [facility] Comment on above: Order Comment: Speci men Type: BLOOD SPECIMENOrdering Facility: [facility] Address: [address] [place] [address] Performed By: #### 2 777-1, 79135-3, 89983-3, 63705-3 ####[facility] LABIA [id number] [place] [address] [place] Calcium [Mass/Vol] 6.0 mg/dL Low 8.5-10.2 [facility] Comment on above: Order Comment: Speci men Type: BLOOD SPECIMENOrdering Facility: [facility] Address: [address] [place] [address] Performed By: #### 2 777-1, 79979-8, 44939-5, 93640-3 ####[facility] LABCLIA [id number] [place] [address] [place] Chloride [Moles/Vol] 108 mmol/L High 98-107 [facility] Comment on above: Order Comment: Speci men Type: BLOOD SPECIMENOrdering Facility: [facility] Address: [address] [place] [address] Performed By: #### 2 777-1, 32042-5, 86560-8, 93906-4 ####[facility] LABCLIA [id number] [place] [address] [place] CO2 [Moles/Vol] 18 mmol/L Low 22-30 [facility] Comment on above: Order Comment: Speci men Type: BLOOD SPECIMENOrdering Facility: [facility] Address: [address] [place] [address] Performed By: #### 2 777-1, 45501-1, 65020-2, 30846-9 ####[facility] LABCLIA [id number] [place] [address] [place] Creatinine [Mass/Vol] 3.31 mg/dL High 0.58-0.96 [facility] Comment on above: Order Comment: Speci men Type: BLOOD SPECIMENOrdering Facility: [facility] Address: [address] [place] [address] Performed By: #### 2 777-1, 40906-2, , 02756-7 ####[facility] LABCLIA [id number] [place] [address] [place] Creatinine and Glomerular filtration rate.predicted panel (S/P/Bld) 14 mL/min/1.73m??? Low >=60 [facility] Comment on above: Order Comment: Speci men Type: BLOOD SPECIMENOrdering Facility: [facility] Address: [address] [place] [address] Result Comment: Kelsey mated Glomerular Filtration Rate [...] actual GFR. Performed By: #### 2 777-1, 03621-3, , ####[facility] LABCLIA [id number] [address] [address] [place] Glucose [Mass/Vol] 123 mg/dL High 74-99 [facility] Comment on above: Order Comment: Víctor friend Type: BLOOD SPECIMENOrdering Facility: [facility] Address: [address] [place] [address] Result Comment: The [place] [employer] (ADA) provides guidance for cutoff [...] Standards of Medical Care in Diabetes 2016, [place] [employer]. Diabetes Care. 2016.39(Suppl 1). Performed By: #### 2 777-1, 56018-3, , ####[facility] LABCLIA [id number] [address] [address] [place] Potassium [Moles/Vol] 3.9 mmol/L Normal 3.7-5.1 [facility] Comment on above: Order Comment: Víctor friend Type: BLOOD SPECIMENOrdering Facility: [facility] Address: [address] [place] [address] Performed By: #### 2 777-1, 08312-7, , ####[facility] LABCLIA [id number] [address] [address] [place] Sodium [Moles/Vol] 139 mmol/L Normal 136-144 [facility] Comment on above: Order Comment: Speci men Type: BLOOD SPECIMENOrdering Facility: [facility] Address: [address] [place] [address] Performed By: #### 2 777-1, 47605-2, 79064-0, 57352-1 ####[facility] LABCLIA [id number] [place] [address] [place] Urea nitrogen [Mass/Vol] 78 mg/dL High 7-21 [facility] Comment on above: Order Comment: Speci men Type: BLOOD SPECIMENOrdering Facility: [facility] Address: [address] [place] [address] Performed By: #### 2 777-1, 77704-4, 75969-9, 02117-1 ####[facility] LABCLIA [id number] [place] [address] [place] CASE MANAGEMon 01-14-2025 CASE MANAGEM Normal [facility] CBC panel Auto (Bld)on 01-14 Erythrocyte distribution width (RBC) [Ratio] 14.6 % Normal 11.5-15.0 [facility] Comment on above: Order Comment: Speci men Type: BLOOD SPECIMENOrdering Facility: [facility] Address: [address] [place] [address] Performed By: #### 5 8410-2 ####[facility] LABCLIA [id number] [place] [address] [place] Hematocrit (Bld) [Volume fraction] 25.3 % Low 36.0-46.0 [facility] Comment on above: Order Comment: Speci men Type: BLOOD SPECIMENOrdering Facility: [facility] Address: [address] [place] [address] Performed By: #### 5 8410-2 ####[facility] LABCLIA [id number] [place] [address] [place] Hemoglobin (Bld) [Mass/Vol] 8.2 g/dL Low 11.5-15.5 [facility] Comment on above: Order Comment: Speci men Type: BLOOD SPECIMENOrdering Facility: [facility] Address: [address] [place] [address] Performed By: #### 5 8410-2 ####[facility] LABCLIA [id number] [place] [address] [place] MCH (RBC) [Entitic mass] 29.6 pg Normal 26.0-34.0 [facility] Comment on above: Order Comment: Speci men Type: BLOOD SPECIMENOrdering Facility: [facility] Address: [address] [place] [address] Performed By: #### 5 8410-2 ####[facility] LABCLIA [id number] [place] [address] [place] MCHC (RBC) [Mass/Vol] 32.4 g/dL Normal 30.5-36.0 [facility] Comment on above: Order Comment: Speci men Type: BLOOD SPECIMENOrdering Facility: [facility] Address: [address] [place] [address] Performed By: #### 5 8410-2 ####[facility] LABIA [id number] [place] [address] [place] MCV (RBC) [Entitic vol] 91.3 fL Normal 80.0-100.0 [facility] Comment on above: Order Comment: Speci men Type: BLOOD SPECIMENOrdering Facility: [facility] Address: [address] [place] [address] Performed By: #### 5 8410-2 ####[facility] LABCLIA [id number] [place] [address] [place] Nucleated RBC (Bld) [#/Vol] 10*3/uL Normal <0.01 [facility] Comment on above: Order Comment: Speci men Type: BLOOD SPECIMENOrdering Facility: [facility] Address: [address] [place] [address] Performed By: #### 5 8410-2 ####[facility] LABCLIA [id number] [place] [address] [place] Platelet mean volume (Bld) [Entitic vol] 9.2 fL Normal 9.0-12.7 [facility] Comment on above: Order Comment: Speci men Type: BLOOD SPECIMENOrdering Facility: [facility] Address: [address] [place] [address] Performed By: #### 5 8410-2 ####[facility] LABIA [id number] [place] [address] [place] Platelets (Bld) [#/Vol] 49 10*3/uL Low 150-400 [facility] Comment on above: Order Comment: Speci men Type: BLOOD SPECIMENOrdering Facility: [facility] Address: [address] [place] [address] Performed By: #### 5 8410-2 ####[facility] LABIA [id number] [place] [address] [place] RBC (Bld) [#/Vol] 2.77 10*6/uL Low 3.90-5.20 [facility] Comment on above: Order Comment: Speci men Type: BLOOD SPECIMENOrdering Facility: [facility] Address: [address] [place] [address] Performed By: #### 5 8410-2 ####[facility] LABCLIA [id number] [place] [address] [place] WBC (Bld) [#/Vol] 12.87 10*3/uL High 3.70-11.00 [facility] Comment on above: Order Comment: Speci men Type: BLOOD SPECIMENOrdering Facility: [facility] Address: [address] [place] [address] Performed By: #### 5 8410-2 ####[facility] LABCLIA [id number] [place] [address] [place] Erythrocyte distribution width (RBC) [Ratio] 14.6 % Normal 11.5-15.0 [facility] Comment on above: Order Comment: Speci men Type: BLOOD SPECIMENOrdering Facility: [facility] Address: [address] [place] [address] Performed By: #### 5 8410-2, IPFR, 51597-6 ####[facility] LABIA [id number] [place] [address] [place] Hematocrit (Bld) [Volume fraction] 25.6 % Low 36.0-46.0 [facility] Comment on above: Order Comment: Speci men Type: BLOOD SPECIMENOrdering Facility: [facility] Address: [address] [place] [address] Performed By: #### 5 8410-2, IPFR, 58623-9 ####[facility] LABIA [id number] [place] [address] [place] Hemoglobin (Bld) [Mass/Vol] 8.1 g/dL Low 11.5-15.5 [facility] Comment on above: Order Comment: Speci men Type: BLOOD SPECIMENOrdering Facility: [facility] Address: [address] [place] [address] Performed By: #### 5 8410-2, IPFR, 31322-5 ####[facility] LABIA [id number] [place] [id number] [place] MCH (RBC) [Entitic mass] 28.9 pg Normal 26.0-34.0 [facility] Comment on above: Order Comment: Speci men Type: BLOOD SPECIMENOrdering Facility: [facility] Address: [address] [place] [address] Performed By: #### 5 8410-2, IPFR, 62065-3 ####[facility] LABCLIA [id number] [place] [address] [place] MCHC (RBC) [Mass/Vol] 31.6 g/dL Normal 30.5-36.0 [facility] Comment on above: Order Comment: Speci men Type: BLOOD SPECIMENOrdering Facility: [facility] Address: [address] [place] [address] Performed By: #### 5 8410-2, IPFR, 18159-2 ####[facility] LABCLIA [id number] [place] [address] [place] MCV (RBC) [Entitic vol] 91.4 fL Normal 80.0-100.0 [facility] Comment on above: Order Comment: Speci men Type: BLOOD SPECIMENOrdering Facility: [facility] Address: [address] [place] [address] Performed By: #### 5 8410-2, IPFR, 42856-5 ####[facility] LABCLIA [id number] [place] [address] [place] Nucleated RBC (Bld) [#/Vol] 10*3/uL Normal <0.01 [facility] Comment on above: Order Comment: Speci men Type: BLOOD SPECIMENOrdering Facility: [facility] Address: [address] [place] [address] Performed By: #### 5 8410-2, IPFR, 34643-1 ####[facility] LABCLIA [id number] [place] [address] [place] Platelet mean volume (Bld) [Entitic vol] 11.0 fL Normal 9.0-12.7 [facility] Comment on above: Order Comment: Speci men Type: BLOOD SPECIMENOrdering Facility: [facility] Address: [address] [place] [address] Performed By: #### 5 8410-2, IPFR, 81785-1 ####[facility] LABCLIA [id number] [place] [address] [place] Platelets (Bld) [#/Vol] 66 10*3/uL Low 150-400 [facility] Comment on above: Order Comment: Speci men Type: BLOOD SPECIMENOrdering Facility: [facility] Address: [address] [place] [address] Performed By: #### 5 8410-2, IPFR, 52972-3 ####[facility] LABCLIA [id number] [place] [address] [place] RBC (Bld) [#/Vol] 2.80 10*6/uL Low 3.90-5.20 [facility] Comment on above: Order Comment: Speci men Type: BLOOD SPECIMENOrdering Facility: [facility] Address: [address] [place] [address] Performed By: #### 5 8410-2, IPFR, 27289-4 ####[facility] LABCLIA [id number] [place] [address] [place] WBC (Bld) [#/Vol] 14.56 10*3/uL High 3.70-11.00 [facility] Comment on above: Order Comment: Speci men Type: BLOOD SPECIMENOrdering Facility: [facility] Address: [address] [place] [address] Performed By: #### 5 8410-2, IPFR, 73446-1 ####[facility] LABCLIA [id number] [place] [address] [place] CITRATED PLATELET COUNTon CITRATED PLATELET COUNT (WAM) 50 k/uL Low 150-400 [facility] Comment on above: Order Comment: Speci men Type: BLOOD SPECIMENOrdering Facility: [facility] Address: [address] [place] [address] Result Comment: Plat elet count confirmed by manual review of peripheral blood smear. No clot detected. Performed By: #### C ITPLT ####[facility] LABCLIA [id number] [place] [address] [place] CONSULT PROGon 01-14-2025 CONSULT PROG Normal [facility] CONSULT PROG Normal [facility] CONSULT PROG Normal [facility] Calcium.ionized [Moles/Vol]o n 01-14-2025 Calcium.ionized (Bld) [Mass/Vol] 0.94 mmol/L Low 1.08-1.30 [facility] Comment on above: Order Comment: Speci men Type: BLOOD SPECIMENOrdering Facility: [facility] Address: [address] [place] [address] Performed By: #### 1 995-0 ####[facility] [id number] [place] [address] [place] Calcium.ionized adjusted to pH 7.4 (Bld) [Moles/Vol] 0.93 mmol/L Low 1.08-1.30 [facility] Comment on above: Order Comment: Speci men Type: BLOOD SPECIMENOrdering Facility: [facility] Address: [address] [place] [address] Performed By: #### 1 995-0 ####[facility] [id number] [place] [address] [place] HIGH SENSITIVITY TROPONIN To n 01-14-2025 Troponin T.cardiac High sensitivity method [Mass/Vol] 21 ng/L High <12 [facility] Comment on above: Order Comment: Speci men Type: BLOOD SPECIMENOrdering Facility: [facility] Address: [address] [place] [address] Performed By: #### 4 542-7, HSTNT ####[facility] [id number] [place] [address] [place] Troponin T.cardiac High sensitivity method [Mass/Vol] 20 ng/L High <12 [facility] Comment on above: Order Comment: Speci men Type: BLOOD SPECIMENOrdering Facility: [facility] Address: [address] [place] [address] Performed By: #### H STNT ####[facility] LABCLIA [id number] [address] [address] [place] Troponin T.cardiac High sensitivity method [Mass/Vol] 21 ng/L High <12 [facility] Comment on above: Order Comment: Speci men Type: BLOOD SPECIMENOrdering Facility: [facility] Address: [address] [place] [address] Performed By: #### H STNT, 4542-7 ####[facility] LABCLIA [id number] [place] [address] [place] Haptoglob SerPl-mCncon 01-14 Haptoglobin [Mass/Vol] 164 mg/dL Normal 31-238 [facility] Comment on above: Order Comment: Speci men Type: BLOOD SPECIMENOrdering Facility: [facility] Address: [address] [place] [address] Performed By: #### 4 542-7, HSTNT ####[facility] LABCLIA [id number] [place] [address] [place] Haptoglobin [Mass/Vol] 132 mg/dL Normal 31-238 [facility] Comment on above: Order Comment: Speci men Type: BLOOD SPECIMENOrdering Facility: [facility] Address: [address] [place] [address] Performed By: #### H STNT, 454-7 ####[facility] LABCLIA [id number] [place] [id number] [place] Hepatic function 2000 panelo n 01-14-2025 Albumin [Mass/Vol] 2.6 g/dL Low 3.9-4.9 [facility] Comment on above: Order Comment: Speci men Type: BLOOD SPECIMENOrdering Facility: [facility] Address: [address] [place] [address] Performed By: #### 2 777-1, 88647-5, , 33952-7 ####[facility] LABCLIA [id number] [place] [address] [place] ALP [Catalytic activity/Vol] 167 U/L High 34-123 [facility] Comment on above: Order Comment: Speci men Type: BLOOD SPECIMENOrdering Facility: [facility] Address: [address] [place] [address] Performed By: #### 2 777-1, 02111-9, , 42378-2 ####[facility] LABIA [id number] [place] [address] [place] ALT [Catalytic activity/Vol] 22 U/L Normal 7-38 [facility] Comment on above: Order Comment: Speci men Type: BLOOD SPECIMENOrdering Facility: [facility] Address: [address] [place] [address] Performed By: #### 2 777-1, 61639-5, , 19805-0 ####[facility] LABIA [id number] [place] [address] [place] AST [Catalytic activity/Vol] 29 U/L Normal 13-35 [facility] Comment on above: Order Comment: Speci men Type: BLOOD SPECIMENOrdering Facility: [facility] Address: [address] [place] [address] Performed By: #### 2 777-1, 12037-0, , 17883-6 ####[facility] LABIA [id number] [place] [id number] [place] Bilirubin [Mass/Vol] 0.3 mg/dL Normal 0.2-1.3 [facility] Comment on above: Order Comment: Speci men Type: BLOOD SPECIMENOrdering Facility: [facility] Address: [address] [place] [address] Performed By: #### 2 777-1, 08938-3, , ####[facility] LABIA [id number] [place] [id number] [place] Bilirubin.conjugated [Mass/Vol] 0.2 mg/dL Normal <0.3 [facility] Comment on above: Order Comment: Speci men Type: BLOOD SPECIMENOrdering Facility: [facility] Address: [address] [place] [address] Performed By: #### 2 777-1, 37398-3, , ####[facility] [id number] [place] [address] [place] Protein [Mass/Vol] 4.2 g/dL Low 6.3-8.0 [facility] Comment on above: Order Comment: Speci men Type: BLOOD SPECIMENOrdering Facility: [facility] Address: [address] [place] [address] Performed By: #### 2 777-1, 34612-2, , ####[facility] [id number] [place] [address] [place] IMMATURE PLATELET FRACTIONon 01-14-2025 Platelets reticulated/100 platelets Auto (Bld) 1.7 % Normal 0.9-7.2 [facility] Comment on above: Order Comment: Speci men Type: BLOOD SPECIMENOrdering Facility: [facility] Address: [address] [place] [address] Performed By: #### 5 8410-2, IPFR, 39670-8 ####[facility] [id number] [place] [address] [place] LDH SerPl-cCncon 01-14-2025 LDH [Catalytic activity/Vol] 426 U/L High 135-214 [facility] Comment on above: Order Comment: Speci men Type: BLOOD SPECIMENOrdering Facility: [facility] Address: [address] [place] [address] Result Comment: Hemo lysis present. The origin of the hemolysis, in vitro versus an in vivo hemolytic process, cannot be distinguished via this assay alone. In vitro hemolysis may lead to non-physiological (spurious) elevation in lactate dehydrogenase (LDH) results. Theresult should be interpreted in context of the clinical setting and other test results. Suggest reorder as clinically indicated. Performed By: #### 2 532-0 ####[facility] LABCLIA [id number] [address] [place] MRA BRAIN WO IVCONon 025 MRA BRAIN WO IVCON Normal [facility] MRI BRAIN WO/W IVCONon 01-14 MRI BRAIN WO/W IVCON Normal [facility] Magnesium SerPl-mCncon 01-14 Magnesium [Mass/Vol] 1.6 mg/dL Low 1.7-2.3 [facility] Comment on above: Order Comment: Víctor friend Type: BLOOD SPECIMENOrdering Facility: [facility] Address: [address] [place] [address] Performed By: #### 2 777-1, 98120-2, 58359-8, 60449-0 ####[facility] LABIA [id number] [place] [address] [place] NURSING PROGon 01-14-2025 NURSING PROG Normal [facility] PT panel Coag (PPP)on 2024 INR Coag (PPP) [Relative time] 1.3 {INR} Normal 0.9-1.3 [facility] Comment on above: Order Comment: Víctor friend Type: BLOOD SPECIMENOrdering Facility: [facility] Address: [address] [place] [address] Result Comment: Zulay min K Antagonist (VKA) Therapeutic Range: INR 2 to 3 (Target INR of 2.5)Note: For patients treated with VKA drugs, such as warfarin, the [place] [employer] 2012 Guideline recommends [...] al. Chest 2012, 141:7S-47SNishimura RA, et al. [facility] 2017, 70: 252-289 Performed By: #### 3 4528-0 ####[facility] [id number] [place] [address] [place] PT Coag (PPP) [Time] 14.3 s High 9.7-13.0 [facility] Comment on above: Order Comment: Víctor friend Type: BLOOD SPECIMENOrdering Facility: [facility] Address: [address] [place] [address] Performed By: #### 3 4528-0 ####[facility] [id number] [place] [address] [place] Phosphate SerPl-mCncon 01-14 Phosphate [Mass/Vol] 2.7 mg/dL Normal 2.7-4.8 [facility] Comment on above: Order Comment: Víctor friend Type: BLOOD SPECIMENOrdering Facility: [facility] Address: [address] [place] [address] Performed By: #### 2 777-1, 74353-3, 98286-6, 86351-4 ####[facility] [id number] [place] [address] [place] Retics #on 01-14-2025 Reticulocytes (Bld) [#/Vol] 0.21499 10*3/uL Normal 0.018-0.100 [facility] Comment on above: Order Comment: Víctor friend Type: BLOOD SPECIMENOrdering Facility: [facility] Address: [address] [place] [address] [place] [id number] Performed By: #### 5 8410-2, IPFR, 89017-7 ####[facility] LABCLIA [id number] [place] [address] [place] Reticulocytes (Bld) [#/Vol]o n 01-14-2025 Reticulocytes/100 RBC (Bld) 1.3 % Normal 0.4-2.0 [facility] Comment on above: Order Comment: Speci men Type: BLOOD SPECIMENOrdering Facility: [facility] Address: [address] [place] [address] Performed By: #### 5 8410-2, IPFR, 04887-9 ####[facility] LABIA [id number] [place] [address] [place] Tacrolimus Bld-mCncon 2024 Tacrolimus (Bld) [Mass/Vol] 9.0 ng/mL Normal 5.0-20.0 [facility] Comment on above: Order Comment: Verenai ronna Type: BLOOD SPECIMENOrdering Facility: [facility] Address: [address] [place] [address] Result Comment: Ema vidualized target levels for [...] Alinity i. Performed By: #### 1 1253-2 ####[facility] LABIA [id number] [place] [address] [place] XR ABDOMEN 1V SUPINEon 01-14 XR ABDOMEN 1V SUPINE Normal [facility] ANES POSTPROC EVALon 025 ANES POSTPROC EVAL [facility] ANES PRE-OPon 01-13-2025 ANES PRE-OP Normal [facility] CASE MANAGEMon 01-13-2025 CASE MANAGEM Normal [facility] CBC panel Auto (Bld)on 01-13 Erythrocyte distribution width (RBC) [Ratio] 14.7 % Normal 11.5-15.0 [facility] Comment on above: Order Comment: Speci men Type: BLOOD SPECIMENOrdering Facility: [facility] Address: [address] [place] [address] Performed By: #### 5 8410-2 ####[facility] LABIA [id number] [place] [address] [place] Hematocrit (Bld) [Volume fraction] 30.2 % Low 36.0-46.0 [facility] Comment on above: Order Comment: Speci men Type: BLOOD SPECIMENOrdering Facility: [facility] Address: [address] [place] [address] Performed By: #### 5 8410-2 ####[facility] LABIA [id number] [place] [address] [place] Hemoglobin (Bld) [Mass/Vol] 9.8 g/dL Low 11.5-15.5 [facility] Comment on above: Order Comment: Speci men Type: BLOOD SPECIMENOrdering Facility: [facility] Address: [address] [place] [address] Performed By: #### 5 8410-2 ####[facility] LABIA [id number] [place] [address] [place] MCH (RBC) [Entitic mass] 29.6 pg Normal 26.0-34.0 [facility] Comment on above: Order Comment: Speci men Type: BLOOD SPECIMENOrdering Facility: [facility] Address: [address] [place] [address] Performed By: #### 5 8410-2 ####[facility] LABIA [id number] [place] [address] [place] MCHC (RBC) [Mass/Vol] 32.5 g/dL Normal 30.5-36.0 [facility] Comment on above: Order Comment: Speci men Type: BLOOD SPECIMENOrdering Facility: [facility] Address: [address] [place] [address] Performed By: #### 5 8410-2 ####[facility] LABCLIA [id number] [place] [address] [place] MCV (RBC) [Entitic vol] 91.2 fL Normal 80.0-100.0 [facility] Comment on above: Order Comment: Speci men Type: BLOOD SPECIMENOrdering Facility: [facility] Address: [address] [place] [address] Performed By: #### 5 8410-2 ####[facility] LABCLIA [id number] [place] [address] [place] Nucleated RBC (Bld) [#/Vol] 10*3/uL Normal <0.01 [facility] Comment on above: Order Comment: Speci men Type: BLOOD SPECIMENOrdering Facility: [facility] Address: [address] [place] [address] Performed By: #### 5 8410-2 ####[facility] LABCLIA [id number] [place] [address] [place] Platelet mean volume (Bld) [Entitic vol] 10.8 fL Normal 9.0-12.7 [facility] Comment on above: Order Comment: Speci men Type: BLOOD SPECIMENOrdering Facility: [facility] Address: [address] [place] [address] Performed By: #### 5 8410-2 ####[facility] LABCLIA [id number] [place] [address] [place] Platelets (Bld) [#/Vol] 75 10*3/uL Low 150-400 [facility] Comment on above: Order Comment: Speci men Type: BLOOD SPECIMENOrdering Facility: [facility] Address: [address] [place] [address] Performed By: #### 5 8410-2 ####[facility] LABIA [id number] [place] [address] [place] RBC (Bld) [#/Vol] 3.31 10*6/uL Low 3.90-5.20 [facility] Comment on above: Order Comment: Speci men Type: BLOOD SPECIMENOrdering Facility: [facility] Address: [address] [place] [address] Performed By: #### 5 8410-2 ####[facility] [id number] [place] [address] [place] WBC (Bld) [#/Vol] 15.91 10*3/uL High 3.70-11.00 [facility] Comment on above: Order Comment: Speci men Type: BLOOD SPECIMENOrdering Facility: [facility] Address: [address] [place] [address] Performed By: #### 5 8410-2 ####[facility] [id number] [place] [address] [place] Erythrocyte distribution width (RBC) [Ratio] 14.5 % Normal 11.5-15.0 [facility] Comment on above: Order Comment: Speci men Type: BLOOD SPECIMENOrdering Facility: [facility] Address: [address] [place] [address] Performed By: #### 5 8410-2 ####[facility] [id number] [place] [address] [place] Hematocrit (Bld) [Volume fraction] 27.9 % Low 36.0-46.0 [facility] Comment on above: Order Comment: Speci men Type: BLOOD SPECIMENOrdering Facility: [facility] Address: [address] [place] [address] Performed By: #### 5 8410-2 ####[facility] LABIA [id number] [place] [address] [place] Hemoglobin (Bld) [Mass/Vol] 9.2 g/dL Low 11.5-15.5 [facility] Comment on above: Order Comment: Speci men Type: BLOOD SPECIMENOrdering Facility: [facility] Address: [address] [place] [address] Performed By: #### 5 8410-2 ####[facility] LABIA [id number] [place] [address] [place] MCH (RBC) [Entitic mass] 29.9 pg Normal 26.0-34.0 [facility] Comment on above: Order Comment: Speci men Type: BLOOD SPECIMENOrdering Facility: [facility] Address: [address] [place] [address] Performed By: #### 5 8410-2 ####[facility] [id number] [place] [address] [place] MCHC (RBC) [Mass/Vol] 33.0 g/dL Normal 30.5-36.0 [facility] Comment on above: Order Comment: Speci men Type: BLOOD SPECIMENOrdering Facility: [facility] Address: [address] [place] [address] Performed By: #### 5 8410-2 ####[facility] LABIA [id number] [place] [address] [place] MCV (RBC) [Entitic vol] 90.6 fL Normal 80.0-100.0 [facility] Comment on above: Order Comment: Speci men Type: BLOOD SPECIMENOrdering Facility: [facility] Address: [address] [place] [address] Performed By: #### 5 8410-2 ####[facility] LABIA [id number] [place] [address] [place] Nucleated RBC (Bld) [#/Vol] 10*3/uL Normal <0.01 [facility] Comment on above: Order Comment: Speci men Type: BLOOD SPECIMENOrdering Facility: [facility] Address: [address] [place] [address] Performed By: #### 5 8410-2 ####[facility] LABCLIA [id number] [place] [address] [place] Platelet mean volume (Bld) [Entitic vol] 10.4 fL Normal 9.0-12.7 [facility] Comment on above: Order Comment: Speci men Type: BLOOD SPECIMENOrdering Facility: [facility] Address: [address] [place] [address] Performed By: #### 5 8410-2 ####[facility] LABIA [id number] [place] [address] [place] Platelets (Bld) [#/Vol] 85 10*3/uL Low 150-400 [facility] Comment on above: Order Comment: Speci men Type: BLOOD SPECIMENOrdering Facility: [facility] Address: [address] [place] [address] Result Comment: Resu lts checked and verified.No clot detected. Performed By: #### 5 8410-2 ####[facility] LABIA [id number] [place] [address] [place] RBC (Bld) [#/Vol] 3.08 10*6/uL Low 3.90-5.20 [facility] Comment on above: Order Comment: Speci men Type: BLOOD SPECIMENOrdering Facility: [facility] Address: [address] [place] [address] Performed By: #### 5 8410-2 ####[facility] LABCLIA [id number] [place] [address] [place] WBC (Bld) [#/Vol] 17.41 10*3/uL High 3.70-11.00 [facility] Comment on above: Order Comment: Speci men Type: BLOOD SPECIMENOrdering Facility: [facility] Address: [address] [place] [address] Performed By: #### 5 8410-2 ####[facility] LABCLIA [id number] [place] [address] [place] CONSULT PROGon 01-13-2025 CONSULT PROG Normal [facility] CONSULT PROG Normal [facility] CONSULT PROG Normal [facility] Calcium.ionized [Moles/Vol]o n 01-13-2025 Calcium.ionized (Bld) [Mass/Vol] 1.03 mmol/L Low 1.08-1.30 [facility] Comment on above: Order Comment: Speci men Type: BLOOD SPECIMENOrdering Facility: [facility] Address: [address] [place] [address] Performed By: #### 1 995-0 ####[facility] LABIA [id number] [place] [address] [place] Calcium.ionized adjusted to pH 7.4 (Bld) [Moles/Vol] 1.01 mmol/L Low 1.08-1.30 [facility] Comment on above: Order Comment: Speci men Type: BLOOD SPECIMENOrdering Facility: [facility] Address: [address] [place] [address] Performed By: #### 1 995-0 ####[facility] LABIA [id number] [place] [address] [place] HIGH SENSITIVITY TROPONIN To n 01-13-2025 Troponin T.cardiac High sensitivity method [Mass/Vol] 20 ng/L High <12 [facility] Comment on above: Order Comment: Speci men Type: BLOOD SPECIMENOrdering Facility: [facility] Address: [address] [place] [address] Performed By: #### H STNT ####[facility] LABIA [id number] [id number] [address] [place] Troponin T.cardiac High sensitivity method [Mass/Vol] 19 ng/L High <12 [facility] Comment on above: Order Comment: Speci men Type: BLOOD SPECIMENOrdering Facility: [facility] Address: [address] [place] [address] Performed By: #### 2 4325-3, HSTNT, 33074-5, 59490-2 ####[facility] LABCLIA [id number] [place] [address] [place] Hep Func 2000 Pnl SerPlon Albumin [Mass/Vol] 2.7 g/dL Low 3.9-4.9 [facility] Comment on above: Order Comment: Speci men Type: BLOOD SPECIMENOrdering Facility: [facility] Address: [address] [place] [address] Performed By: #### 2 4325-3, HSTNT, 67580-8, 07128-2 ####[facility] LABCLIA [id number] [place] [address] [place] Hepatic function 2000 panelo n 01-13-2025 ALP [Catalytic activity/Vol] 174 U/L High 34-123 [facility] Comment on above: Order Comment: Speci men Type: BLOOD SPECIMENOrdering Facility: [facility] Address: [address] [place] [address] Performed By: #### 2 4325-3, HSTNT, 68740-5, 93957-1 ####[facility] LABCLIA [id number] [place] [id number] [place] ALT [Catalytic activity/Vol] 21 U/L Normal 7-38 [facility] Comment on above: Order Comment: Speci men Type: BLOOD SPECIMENOrdering Facility: [facility] Address: [address] [place] [address] Performed By: #### 2 4325-3, HSTNT, 72736-5, 60703-3 ####[facility] LABCLIA [id number] [address] [address] [place] AST [Catalytic activity/Vol] 32 U/L Normal 13-35 [facility] Comment on above: Order Comment: Speci men Type: BLOOD SPECIMENOrdering Facility: [facility] Address: [address] [place] [address] Performed By: #### 2 4325-3, HSTNT, 14579-0, ####[facility] LABCLIA [id number] [place] [id number] [place] Bilirubin [Mass/Vol] 0.7 mg/dL Normal 0.2-1.3 [facility] Comment on above: Order Comment: Speci men Type: BLOOD SPECIMENOrdering Facility: [facility] Address: [address] [place] [address] Performed By: #### 2 4325-3, HSTNT, , ####[facility] LABIA [id number] [place] [address] [place] Bilirubin.conjugated [Mass/Vol] 0.3 mg/dL High <0.3 [facility] Comment on above: Order Comment: Speci men Type: BLOOD SPECIMENOrdering Facility: [facility] Address: [address] [place] [address] Performed By: #### 2 4325-3, HSTNT, , ####[facility] LABCLIA [id number] [address] [address] [place] Protein [Mass/Vol] 4.5 g/dL Low 6.3-8.0 [facility] [facility] Comment on above: Order Comment: Speci men Type: BLOOD SPECIMENOrdering Facility: [facility] Address: [address] [place] [address] Performed By: #### 2 4325-3, HSTNT, 72415-8, ####[facility] LABCLIA [id number] JESSY TULS[place] [address] [place] IMMUNE FUN ASSY ATPon 2024 ATP LEVEL (IMMFUN) 343 ATP ng/mL Normal [facility] Comment on above: Order Comment: Speci men Type: BLOOD SPECIMENOrdering Facility: [facility] Address: [address] [place] [address] Result Comment: Assa y Range:Low Immune Cell [...] (R) is a registered trademark. Testing Performed At:[facility], [address], [address] Director: Jose Tate, PhD TIFFANY (ABB)IA # [id number] Interpretation: A = Abnormal, H = High, L = Low Performed By: #### I MMFUN ####[facility] LABSCLIA [id number] [place] [address] Magnesium Banner 01-13 Magnesium [Mass/Vol] 1.8 mg/dL Normal 1.7-2.3 [facility] Comment on above: Order Comment: Speci men Type: BLOOD SPECIMENOrdering Facility: [facility] Address: [address] [place] [address] Performed By: #### 2 4325-3, HSTNT, 15666-4, 21216-9 ####[facility] LABCLIA [id number] [place] [address] [place] NURSING PROGon 01-13-2025 NURSING PROG Normal [facility] NUTRITIONon 01-13-2025 NUTRITION Normal [facility] PT panel Coag (PPP)on 2024 INR Coag (PPP) [Relative time] 1.3 {INR} Normal 0.9-1.3 [facility] Comment on above: Order Comment: Speci men Type: BLOOD SPECIMENOrdering Facility: [facility] Address: [address] [place] [address] Result Comment: Zulay min K Antagonist (VKA) Therapeutic Range: INR 2 to 3 (Target INR of 2.5)Note: For patients treated with VKA drugs, such as warfarin, the [place] [employer] 2012 Guideline recommends [...] al. Chest 2012, 141:7S-47SNishimjoaquin RA, et al. [facility] 2017, 70: 252-289 Performed By: #### 3 4528-0, 60821-4 ####[facility] LABCLIA [id number] [facility] [place] [address] [place] PT Coag (PPP) [Time] 14.3 s High 9.7-13.0 [facility] Comment on above: Order Comment: Speci men Type: BLOOD SPECIMENOrdering Facility: [facility] Address: [address] [place] [address] Performed By: #### 3 4528-0, 89201-3 ####[facility] LABCLIA [id number] [address] Pathology biopsy report Frederick (Tiss)on 01-13-2025 ADDENDUM 1: Normal [facility] Comment on above: Order Comment: Speci men Type: TISSUE SPECIMENOrdering Facility: [facility] Address: [address] [place] [address] Result Comment: Give n the background of chronic gastritis a Helicobacter pylori immunostain was performed on block A1 and is negative for Helicobacter pylori organisms.Laboratory Developed Test (LDT) Disclaimer:Performance characteristics of immunohistochemical, immunofluorescent and chromogenic in-situ hybridization tests have been determined by the performing laboratory within [facility]???s Juanito Moe Pathology and Laboratory Medicine Department ([facility], [facility], [facility], [facility], [facility], [facility], or [facility]) in a manner consistent with CLIA [...] EST Performed By: #### 6 6121-5 ####[facility] LABCLIA [id number] [place] [id number] [facility] LABCLIA [id number] [address] [place] CASE REPORT Normal [facility] Comment on above: Order Comment: Speci men Type: TISSUE SPECIMENOrdering Facility: [facility] Address: [address] [place] [address] Result Comment: Surg ical Pathology Report Case: [id number] Provider: Zackery Huffman MD Collected: 01/13/2025 12:24 PMOrdering Location: [place] [address] Received: 01/13/2025 05:22 PMPathologist: Jake Pandey MDSpecimens: A) - Stomach, Biopsy, Stomach ulcer biopsy 1 - r/o Ulcer B) - Stomach, Biopsy, Erosion of anterior antrum - r/o ulcer Performed By: #### 6 6121-5 ####[facility] LABCLIA [id number] [address] LABCLIA [id number] [address] OF [facility] FINAL DIAGNOSIS Normal [facility] Comment on above: Order Comment: Speci men Type: TISSUE SPECIMENOrdering Facility: [facility] Address: [address] [place] [address] Result Comment: A. 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 at 1218 EST Performed By: #### 6 6121-5 ####[facility] LABCLIA [id number] [address] LABCLIA [id number] [address] OF [place] FINAL PERFORMING LAB Normal [facility] Comment on above: Order Comment: Speci men Type: TISSUE SPECIMENOrdering Facility: [facility] Address: [address] [place] [address] Result Comment: Diag nostic interpretation performed at: [facility], [address] [place] [address] CLIA# [id number] Director: Ravi Chacko MD Performed By: #### 6 6121-5 ####[facility] LABCLIA [id number] [address] LABCLIA [id number] [place] [address] [place] GROSS DESCRIPTION Normal [facility] Comment on above: Order Comment: Speci men Type: TISSUE SPECIMENOrdering Facility: [facility] Address: [address] [place] [address] Result Comment: A. S tomach, BiopsyReceived in formalin are multiple pieces of cameron-pink and cameron-red, soft tissue aggregating to 0.7 x 0.4 x 0.2 cm. Totally submitted in one cassette.B. Stomach, BiopsyReceived in formalin are two pieces of cameron, soft tissue aggregating to 0.5 x 0.3 x 0.2 cm. Totally submitted in one cassette.JCDM January 13, 2025 6:19 PMGross examination performed at [facility], [address] [place] [address] Performed By: #### 6 6121-5 ####[facility] LABCLIA [id number] [place] [address] [place] [facility] LABCLIA [id number] [place] [address] [place] Renal function 2000 panelon 01-13-2025 Anion gap [Moles/Vol] 14 mmol/L Normal 8-15 [facility] Comment on above: Order Comment: Speci men Type: BLOOD SPECIMENOrdering Facility: [facility] Address: [address] [place] [address] Performed By: #### 2 4325-3, HSTNT, 61248-3, 51733-9 ####[facility] LABCLIA [id number] [place] [address] [place] Calcium [Mass/Vol] 7.0 mg/dL Low 8.5-10.2 [facility] Comment on above: Order Comment: Speci men Type: BLOOD SPECIMENOrdering Facility: [facility] Address: [address] [place] [address] Performed By: #### 2 4325-3, HSTNT, 79543-4, 31361-3 ####[facility] LABCLIA [id number] [address] [address] [place] Chloride [Moles/Vol] 107 mmol/L Normal 98-107 [facility] Comment on above: Order Comment: Speci men Type: BLOOD SPECIMENOrdering Facility: [facility] Address: [address] [place] [address] Performed By: #### 2 4325-3, HSTNT, 12766-1, ####[facility] LABCLIA [id number] [address] [address] [place] CO2 [Moles/Vol] 18 mmol/L Low 22-30 [facility] Comment on above: Order Comment: Speci men Type: BLOOD SPECIMENOrdering Facility: [facility] Address: [address] [place] [address] Performed By: #### 2 4325-3, HSTNT, 88592-4, ####[facility] LABCLIA [id number] [address] [address] [place] Creatinine [Mass/Vol] 3.46 mg/dL High 0.58-0.96 [facility] Comment on above: Order Comment: Speci men Type: BLOOD SPECIMENOrdering Facility: [facility] Address: [address] [place] [address] Performed By: #### 2 4325-3, HSTNT, 53305-7, ####[facility] LABCLIA [id number] [address] [address] [place] Creatinine and Glomerular filtration rate.predicted panel (S/P/Bld) 13 mL/min/1.73m??? Low >=60 [facility] Comment on above: Order Comment: Speci men Type: BLOOD SPECIMENOrdering Facility: [facility] Address: [address] [place] [address] Result Comment: Kelsey mated Glomerular Filtration Rate (eGFR) is calculated using the 2021 CKD-EPI creatinine equation. This equation utilizes serum creatinine, sex, and age as parameters. The creatinine assay has traceable calibration to isotope dilution-mass spectrometry. Refer to KDIGO guidelines for clinical interpretation. In patients with unstable renal function, e.g. those with acute kidney injury, the eGFR may not accurately reflect actual GFR. Performed By: #### 2 4325-3, HSTNT, 93616-6, ####[facility] LABCLIA [id number] [address] [address] [place] Glucose [Mass/Vol] 91 mg/dL Normal 74-99 [facility] Comment on above: Order Comment: Víctor friend Type: BLOOD SPECIMENOrdering Facility: [facility] Address: [address] [place] [address] Result Comment: The [place] Diabetes Association (ADA) provides guidance for cutoff [...] Standards of Medical Care in Diabetes 2016, [place] [employer]. Diabetes Care. 2016.39(Suppl 1). Performed By: #### 2 4325-3, HSTNT, 21247-1, ####[facility] LABCLIA [id number] [address] [address] [place] Phosphate [Mass/Vol] 3.6 mg/dL Normal 2.7-4.8 [facility] Comment on above: Order Comment: Víctor friend Type: BLOOD SPECIMENOrdering Facility: [facility] Address: [address] [place] [address] Performed By: #### 2 4325-3, HSTNT, 62381-7, ####[facility] LABCLIA [id number] [address] [address] [place] Potassium [Moles/Vol] 4.0 mmol/L Normal 3.7-5.1 [facility] Comment on above: Order Comment: Speci men Type: BLOOD SPECIMENOrdering Facility: [facility] Address: [address] [place] [address] Performed By: #### 2 4325-3, HSTNT, 01854-0, 32498-8 ####[facility] LABCLIA [id number] [address] [address] [place] Sodium [Moles/Vol] 139 mmol/L Normal 136-144 [facility] Comment on above: Order Comment: Speci men Type: BLOOD SPECIMENOrdering Facility: [facility] Address: [address] [place] [address] Performed By: #### 2 4325-3, HSTNT, 78338-6, 11852-4 ####[facility] LABIA [id number] [address] [address] [place] Urea nitrogen [Mass/Vol] 84 mg/dL High 7-21 [facility] Comment on above: Order Comment: Speci men Type: BLOOD SPECIMENOrdering Facility: [facility] Address: [address] [place] [address] Performed By: #### 2 4325-3, HSTNT, 28468-9, ####[facility] LABIA [id number] [address] [address] [place] THERAPY NTon 01-13-2025 THERAPY NT Normal [facility] THERAPY NT Normal [facility] Tacrolimus Bld-mCncon 2024 Tacrolimus (Bld) [Mass/Vol] 4.1 ng/mL Low 5.0-20.0 [facility] Comment on above: Order Comment: Speci men Type: BLOOD SPECIMENOrdering Facility: [facility] Address: [address] [place] [address] Result Comment: Ema vidualized target levels for [...] Alinity i. Performed By: #### 1 1253-2 ####[facility] LABCLIA [id number] [place] [address] [place] Upper GI endoscopyon 025 Upper GI endoscopy Normal [facility] aPTT PPPon 01-13-2025 aPTT Coag (PPP) [Time] 32.8 s High 23.0-32.4 [facility] Comment on above: Order Comment: Víctor friend Type: BLOOD SPECIMENOrdering Facility: [facility] Address: [address] [place] [address] Performed By: #### 3 4528-0, 14687-1 ####[facility] LABCLIA [id number] [address] [place] 25(OH)D3 SerPl-mCncon 2024 25-hydroxyvitamin D3 [Mass/Vol] 13.6 ng/mL Low 31.0-80.0 [facility] Comment on above: Order Comment: íVctor friend Type: BLOOD SPECIMENOrdering Facility: [facility] Address: [address] [place] [address] Result Comment: Clas sification of 25 [place] Vitamin D status:Deficiency/Insufficiency: < or = 30 ng/ml.Sufficiency/Optimal Levels: 31-80 ng/mLToxicity: > 100 ng/mL.Test performed by chemiluminescent immunoassay. Performed By: #### 1 989-3 ####[facility] LABCLIA [id number] [place] [id number] [place] Basic metabolic 2000 panelon 01-12-2025 Anion gap [Moles/Vol] 13 mmol/L Normal 8-15 [facility] Comment on above: Order Comment: Speci men Type: BLOOD SPECIMENOrdering Facility: [facility] Address: [address] [place] [address] Performed By: #### 1 9123-9, 74042-6, 11170-2, 2777-1 ####[facility] LABCLIA [id number] [place] [address] [place] Calcium [Mass/Vol] 6.9 mg/dL Low 8.5-10.2 [facility] Comment on above: Order Comment: Speci men Type: BLOOD SPECIMENOrdering Facility: [facility] Address: [address] [place] [address] Performed By: #### 1 9123-9, 22209-4, 92423-5, 2777-1 ####[facility] LABCLIA [id number] [place] [address] [place] Chloride [Moles/Vol] 107 mmol/L Normal 98-107 [facility] Comment on above: Order Comment: Speci men Type: BLOOD SPECIMENOrdering Facility: [facility] Address: [address] [place] [address] Performed By: #### 1 9123-9, 08767-5, 02852-5, 2777-1 ####[facility] LABCLIA [id number] [place] [address] [place] CO2 [Moles/Vol] 20 mmol/L Low 22-30 [facility] Comment on above: Order Comment: Speci men Type: BLOOD SPECIMENOrdering Facility: [facility] Address: [address] [place] [address] Performed By: #### 1 9123-9, 54814-9, 55093-6, 2777-1 ####[facility] LABCLIA [id number] [address] [place] [address] [place] Creatinine [Mass/Vol] 3.95 mg/dL High 0.58-0.96 [facility] Comment on above: Order Comment: Víctor friend Type: BLOOD SPECIMENOrdering Facility: [facility] Address: [address] [place] [address] Performed By: #### 1 9123-9, 20544-9, 54953-3, 2777-1 ####[facility] LABCLIA [id number] [place] [address] [place] [facility] [place] Creatinine and Glomerular filtration rate.predicted panel (S/P/Bld) 11 mL/min/1.73m??? Low >=60 [facility] Comment on above: Order Comment: Víctor friend Type: BLOOD SPECIMENOrdering Facility: [facility] Address: [address] [place] [address] Result Comment: Kelsey mated Glomerular Filtration Rate [...] actual GFR. Performed By: #### 1 9123-9, 90581-0, 82153-5, 2777-1 ####[facility] LABCLIA [id number] [place] [address] [place] Glucose [Mass/Vol] 116 mg/dL High 74-99 [facility] Comment on above: Order Comment: Víctor friend Type: BLOOD SPECIMENOrdering Facility: [facility] Address: [address] [place] [address] Result Comment: The [place] Diabetes Association (ADA) provides guidance for cutoff [...] Standards of Medical Care in Diabetes 2016, [place] [employer]. Diabetes Care. 2016.39(Suppl 1). Performed By: #### 1 9123-9, 46329-6, 12381-3, 2777-1 ####[facility] LABCLIA [id number] [place] [address] [place] Potassium [Moles/Vol] 3.4 mmol/L Low 3.7-5.1 [facility] Comment on above: Order Comment: Speci men Type: BLOOD SPECIMENOrdering Facility: [facility] Address: [address] [place] [address] Performed By: #### 1 9123-9, 54457-6, 12277-6, 2777-1 ####[facility] LABIA [id number] [place] [address] [place] Sodium [Moles/Vol] 140 mmol/L Normal 136-144 [facility] Comment on above: Order Comment: Verenai ronna Type: BLOOD SPECIMENOrdering Facility: [facility] Address: [address] [place] [address] Performed By: #### 1 9123-9, 29501-2, 89850-5, 2777-1 ####[facility] LABIA [id number] [place] [address] [place] Urea nitrogen [Mass/Vol] 90 mg/dL High 7-21 [facility] Comment on above: Order Comment: Speci men Type: BLOOD SPECIMENOrdering Facility: [facility] Address: [address] [place] [address] Performed By: #### 1 9123-9, 42178-1, 60993-4, 2777-1 ####[facility] LABCLIA [id number] [place] [id number] [place] CASE MANAGEMon 01-12-2025 CASE MANAGEM Normal [facility] CBC panel Auto (Bld)on 01-12 Erythrocyte distribution width (RBC) [Ratio] 14.4 % Normal 11.5-15.0 [facility] Comment on above: Order Comment: Speci men Type: BLOOD SPECIMENOrdering Facility: [facility] Address: [address] [place] [address] Performed By: #### 5 8410-2 ####[facility] LABCLIA [id number] [place] [address] [place] Hematocrit (Bld) [Volume fraction] 18.6 % Low 36.0-46.0 [facility] Comment on above: Order Comment: Speci men Type: BLOOD SPECIMENOrdering Facility: [facility] Address: [address] [place] [address] Performed By: #### 5 8410-2 ####[facility] LABIA [id number] [place] [address] [place] Hemoglobin (Bld) [Mass/Vol] 5.9 g/dL Critically low 11.5-15.5 [facility] Comment on above: Order Comment: Speci men Type: BLOOD SPECIMENOrdering Facility: [facility] Address: [address] [place] [address] Result Comment: No c lot detected. Performed By: #### 5 8410-2 ####[facility] LABCLIA [id number] [place] [address] [place] MCH (RBC) [Entitic mass] 29.1 pg Normal 26.0-34.0 [facility] Comment on above: Order Comment: Speci men Type: BLOOD SPECIMENOrdering Facility: [facility] Address: [address] [place] [address] Performed By: #### 5 8410-2 ####[facility] LABCLIA [id number] [place] [address] [place] MCHC (RBC) [Mass/Vol] 31.7 g/dL Normal 30.5-36.0 [facility] Comment on above: Order Comment: Speci men Type: BLOOD SPECIMENOrdering Facility: [facility] Address: [address] [place] [address] Performed By: #### 5 8410-2 ####[facility] LABCLIA [id number] [place] [address] [place] MCV (RBC) [Entitic vol] 91.6 fL Normal 80.0-100.0 [facility] Comment on above: Order Comment: Speci men Type: BLOOD SPECIMENOrdering Facility: [facility] Address: [address] [place] [address] Performed By: #### 5 8410-2 ####[facility] LABCLIA [id number] [place] [address] [place] Nucleated RBC (Bld) [#/Vol] 10*3/uL Normal <0.01 [facility] Comment on above: Order Comment: Speci men Type: BLOOD SPECIMENOrdering Facility: [facility] Address: [address] [place] [address] Performed By: #### 5 8410-2 ####[facility] LABIA [id number] [place] [address] [place] Platelet mean volume (Bld) [Entitic vol] 9.9 fL Normal 9.0-12.7 [facility] Comment on above: Order Comment: Speci men Type: BLOOD SPECIMENOrdering Facility: [facility] Address: [address] [place] [address] Performed By: #### 5 8410-2 ####[facility] LABCLIA [id number] [place] [address] [place] Platelets (Bld) [#/Vol] 81 10*3/uL Low 150-400 [facility] Comment on above: Order Comment: Speci men Type: BLOOD SPECIMENOrdering Facility: [facility] Address: [address] [place] [address] Result Comment: No c lot detected. Performed By: #### 5 8410-2 ####[facility] LABIA [id number] [place] [address] [place] RBC (Bld) [#/Vol] 2.03 10*6/uL Low 3.90-5.20 [facility] Comment on above: Order Comment: Speci men Type: BLOOD SPECIMENOrdering Facility: [facility] Address: [address] [place] [address] Performed By: #### 5 8410-2 ####[facility] LABIA [id number] [place] [address] [place] WBC (Bld) [#/Vol] 11.13 10*3/uL High 3.70-11.00 [facility] Comment on above: Order Comment: Speci men Type: BLOOD SPECIMENOrdering Facility: [facility] Address: [address] [place] [address] Performed By: #### 5 8410-2 ####[facility] [id number] [place] [address] [place] CONSULTon 01-12-2025 CONSULT Normal [facility] CONSULT PROGon 01-12-2025 CONSULT PROG Normal [facility] CONSULT PROG Normal [facility] CONSULT PROG Normal [facility] Calcium ?Tm Ur-mCncon 2024 Calcium Unsp time (U) [Mass/Vol] 3.8 mg/dL Normal 0.0-21.0 [facility] Comment on above: Order Comment: Speci men Type: URINE SPECIMENOrdering Facility: [facility] Address: [address] [place] [address] Performed By: #### 3 5674-1, 65558-4, 15690-6 ####[facility] LABCLIA [id number] [place] [address] [place] Calcium.ionized [Moles/Vol]o n 01-12-2025 Calcium.ionized (Bld) [Mass/Vol] 1.07 mmol/L Low 1.08-1.30 [facility] Comment on above: Order Comment: Speci men Type: BLOOD SPECIMENOrdering Facility: [facility] Address: [address] [place] [address] Performed By: #### 1 995-0 ####[facility] LABIA [id number] [place] [address] [place] Calcium.ionized adjusted to pH 7.4 (Bld) [Moles/Vol] 1.04 mmol/L Low 1.08-1.30 [facility] Comment on above: Order Comment: Speci men Type: BLOOD SPECIMENOrdering Facility: [facility] Address: [address] [place] [address] Performed By: #### 1 995-0 ####[facility] LABIA [id number] [place] [address] [place] Calcium.ionized (Bld) [Mass/Vol] <0.50 Low 1.08-1.30 [facility] Comment on above: Order Comment: Speci men Type: BLOOD SPECIMENOrdering Facility: [facility] Address: [address] [place] [address] Performed By: #### 1 995-0 ####[facility] LABIA [id number] [place] [address] [place] Calcium.ionized adjusted to pH 7.4 (Bld) [Moles/Vol] Normal [facility] Comment on above: Order Comment: Speci men Type: BLOOD SPECIMENOrdering Facility: [facility] Address: [address] [place] [address] Result Comment: Raysa ured pH is <7.20. Unable to report normalized Calcium. Performed By: #### 1 995-0 ####[facility] LABIA [id number] [place] [address] [place] Creatinine Unsp time (U) [Ma ss/Vol]on 01-12-2025 Creatinine (U) [Mass/Vol] 58.2 mg/dL Normal 20.0-300.0 [facility] Comment on above: Order Comment: Speci men Type: URINE SPECIMENOrdering Facility: [facility] Address: [address] [place] [address] Performed By: #### 3 5674-1, 07377-7, 15773-5 ####[facility] LABCLIA [id number] [place] [address] [place] ECG COMPLETEon 01-12-2025 ECG COMPLETE Normal [facility] GLUCOSE, BLOOD (POC)on 01-12 Glucose [Mass/Vol] 95 mg/dL 74 - 99 mg/dL [facility] Comment on above: Location:[facility] daljit, [address] [place] [address] The Accu-Chek Inform II glucose meter has [...] blood gas instrument) in the above situations. [facility] HEART/LUNG REC POST TX DSAon 01-12-2025 ALLOGEN RESULTS TO FOLLOW See Allogen report to follow Normal [facility] Comment on above: Order Comment: Speci men Type: BLOOD SPECIMENOrdering Facility: [facility] Address: [address] [place] [address] Performed By: #### H LPTCX ####[facility] LABORATORIESCLIA [id number] [place] [address] [place] HIGH SENSITIVITY TROPONIN To n 01-12-2025 Troponin T.cardiac High sensitivity method [Mass/Vol] 17 ng/L High <12 [facility] Comment on above: Order Comment: Speci men Type: BLOOD SPECIMENOrdering Facility: [facility] Address: [address] [place] [address] Performed By: #### H STNT ####[facility] LABCLIA [id number] [place] [address] [place] Troponin T.cardiac High sensitivity method [Mass/Vol] 22 ng/L High <12 [facility] Comment on above: Order Comment: Speci men Type: BLOOD SPECIMENOrdering Facility: [facility] Address: [address] [place] [address] Performed By: #### H STNT ####[facility] LABIA [id number] [place] [address] [place] HISTOPLASMA AG URINEon 01-12 H. capsulatum Ag (U) [Mass/Vol] <0.2 Normal <0.2 [facility] Comment on above: Order Comment: Speci men Type: URINE SPECIMENOrdering Facility: [facility] Address: [address] [place] [address] Performed By: #### U HISTO ####[facility] LABIA [id number] [place] [address] [place] H. capsulatum Ag IA Ql (U) Negative Normal Negative [facility] Comment on above: Order Comment: Speci men Type: URINE SPECIMENOrdering Facility: [facility] Address: [address] [place] [address] Result Comment: Hist oplasma galactomannan antigen, urine test is used as an aid in diagnosing histoplasmosis. A negative result cannot rule out infection. Low positive results may at times be due to cross-reactivity with Blastomyces, Talaromyces marneffei, Paracoccidioides, and some Cyndi species. Clinical radiological, and epidemiological correlation is required. Performed By: #### U HISTO ####[facility] LABCLIA [id number] [place] [address] [place] HSV+VZV DNA ULICES+probe Ql (Un sp spec)on 01-12-2025 HSV 1 DNA ULICES+probe Ql (Unsp spec) Not detected Normal Not Detected [facility] Comment on above: Order Comment: Speci men Type: SWABOrdering Facility: [facility] Address: [address] [place] [address] Performed By: #### 3 3027-4 ####[facility] LABCLIA [id number] [place] [address] [place] HSV 2 DNA ULICES+probe Ql (Unsp spec) Not detected Normal Not Detected [facility] Comment on above: Order Comment: Speci men Type: SWABOrdering Facility: [facility] Address: [address] [place] [address] Performed By: #### 3 3027-4 ####[facility] LABCLIA [id number] [place] [address] [place] VZV DNA ULICES+probe Ql (Unsp spec) Not detected Normal Not Detected [facility] Comment on above: Order Comment: Speci men Type: SWABOrdering Facility: [facility] Address: [address] [place] [address] Performed By: #### 3 3027-4 ####[facility] LABCLIA [id number] [place] [address] [place] Hepatic function 2000 panelo n 01-12-2025 Albumin [Mass/Vol] 2.5 g/dL Low 3.9-4.9 [facility] Comment on above: Order Comment: Speci men Type: BLOOD SPECIMENOrdering Facility: [facility] Address: [address] [place] [address] Performed By: #### 1 9123-9, 02238-1, 12759-7, 2777-1 ####[facility] LABCLIA [id number] [place] [address] [place] ALP [Catalytic activity/Vol] 158 U/L High 34-123 [facility] Comment on above: Order Comment: Speci men Type: BLOOD SPECIMENOrdering Facility: [facility] Address: [address] [place] [address] Performed By: #### 1 9123-9, 18349-7, 29250-8, 2777-1 ####[facility] LABCLIA [id number] [place] [address] [place] ALT [Catalytic activity/Vol] 20 U/L Normal 7-38 [facility] Comment on above: Order Comment: Speci men Type: BLOOD SPECIMENOrdering Facility: [facility] Address: [address] [place] [address] Performed By: #### 1 9123-9, 83992-9, 18884-2, 277-1 ####[facility] LABIA [id number] [place] [address] [place] AST [Catalytic activity/Vol] 27 U/L Normal 13-35 [facility] Comment on above: Order Comment: Speci men Type: BLOOD SPECIMENOrdering Facility: [facility] Address: [address] [place] [address] Performed By: #### 1 9123-9, 29364-9, 03073-8, 277-1 ####[facility] LABIA [id number] [place] [address] [place] Bilirubin [Mass/Vol] 0.2 mg/dL Normal 0.2-1.3 [facility] Comment on above: Order Comment: Speci men Type: BLOOD SPECIMENOrdering Facility: [facility] Address: [address] [place] [address] Performed By: #### 1 9123-9, 80419-5, 44213-6, 2777-1 ####[facility] LABCLIA [id number] [place] [address] [place] Bilirubin.conjugated [Mass/Vol] 0.1 mg/dL Normal <0.3 [facility] Comment on above: Order Comment: Speci men Type: BLOOD SPECIMENOrdering Facility: [facility] Address: [address] [place] [address] Performed By: #### 1 9123-9, 08634-4, 13431-1, 2777-1 ####[facility] LABCLIA [id number] [place] [address] [place] Protein [Mass/Vol] 4.1 g/dL Low 6.3-8.0 [facility] Comment on above: Order Comment: Speci men Type: BLOOD SPECIMENOrdering Facility: [facility] Address: [address] [place] [address] Performed By: #### 1 9123-9, 77907-7, 48376-7, 2777-1 ####[facility] LABIA [id number] [place] [address] [place] IMMUNE FUN ASSY ATPon 2024 ATP LEVEL (IMMFUN) 725 ATP ng/mL Normal [facility] Comment on above: Order Comment: Speci men Type: BLOOD SPECIMENOrdering Facility: [facility] Address: [address] [place] [address] Result Comment: Assa y Range:Low Immune Cell [...] (R) is a registered trademark. Testing Performed At:[employer] [place], [id number] [address], [address] [place] [address] Director: Jose Tate, PhD TIFFANY (ANSELMO)JO ANN # [id number] Interpretation: A = Abnormal, H = High, L = Low Performed By: #### I MMFUN ####[facility] LABSCLIA [id number] [place] [address] IgG SerPl-mCncon 01-12-2025 IgG [Mass/Vol] 572 mg/dL Low 700-1600 [facility] Comment on above: Order Comment: Speci men Type: BLOOD SPECIMENOrdering Facility: [facility] Address: [address] [place] [address] Performed By: #### 2 465-3 ####[facility] LABCLIA [id number] [address] [place] [facility] S[facility] OUT TST 1on 2024 [facility] SCAN TEST RESULTS 1 View results in Scanned Documents link when available Normal [facility] Comment on above: Order Comment: Speci men Type: BLOOD SPECIMENOrdering Facility: [facility] Address: [address] [place] [address] Performed By: #### M ISC1 ####NON-INTERFACED REF LABSCLIA SEE SCANNED RESULTSCINCINNATI SHRINERS [facility] LABCLIA [id number] [place] [address] [place] REFERRAL LAB 1 (DROP-DOWN) Karius Normal [facility] Comment on above: Order Comment: Speci men Type: BLOOD SPECIMENOrdering Facility: [facility] Address: [address] [place] [address] Performed By: #### M ISC1 ####NON-INTERFACED REF LABSCLIA SEE SCANNED RESULTSCINCINNATI SHRINERS [facility] LABCLIA [id number] [place] [address] [place] TEST 1 Karius Normal [facility] Comment on above: Order Comment: Speci men Type: BLOOD SPECIMENOrdering Facility: [facility] Address: [address] [place] [address] Performed By: #### M ISC1 ####NON-INTERFACED REF LABSCLIA SEE SCANNED RESULTSCINCINNATI SHRINERS [facility] LABCLIA [id number] [place] [address] [place] Magnesium SerPl-mCncon 01-12 Magnesium [Mass/Vol] 2.1 mg/dL Normal 1.7-2.3 [facility] Comment on above: Order Comment: Speci men Type: BLOOD SPECIMENOrdering Facility: [facility] Address: [address] [place] [address] Performed By: #### 1 9123-9, 49811-7, 53037-2, 2777-1 ####[facility] LABCLIA [id number] [place] [address] [place] NUTRITIONon 01-12-2025 NUTRITION Normal [facility] PT panel Coag (PPP)on 2024 INR Coag (PPP) [Relative time] 1.4 {INR} High 0.9-1.3 [facility] Comment on above: Order Comment: Víctor friend Type: BLOOD SPECIMENOrdering Facility: [facility] Address: [address] [place] [address] Result Comment: Zulay min K Antagonist (VKA) Therapeutic Range: INR 2 to 3 (Target INR of 2.5)Note: For patients treated with VKA drugs, such as warfarin, the [place] [employer] 2012 Guideline recommends [...] of 3).Laura THORPE, et al. Chest 2012, 141:7S-47SNishimura RA, et al. [facility] 2017, 70: 252-289 Performed By: #### 3 4528-0, 46945-1 ####[facility] [id number] [address] [address] [place] PT Coag (PPP) [Time] 15.0 s High 9.7-13.0 [facility] Comment on above: Order Comment: Speci men Type: BLOOD SPECIMENOrdering Facility: [facility] Address: [address] [place] [address] Performed By: #### 3 4528-0, 91109-0 ####[facility] [id number] [place] [address] [place] PTH-Intact SerPl-mCncon 01-02 Parathyrin.intact [Mass/Vol] 30 pg/mL Normal 15-65 [facility] Comment on above: Order Comment: Speci men Type: BLOOD SPECIMENOrdering Facility: [facility] Address: [address] [place] [address] Performed By: #### 2 731-8, 45239-2 ####[facility] [id number] [place] [address] [place] Phosphate SerPl-mCncon 01-12 Phosphate [Mass/Vol] 3.9 mg/dL Normal 2.7-4.8 [facility] Comment on above: Order Comment: Speci men Type: BLOOD SPECIMENOrdering Facility: [facility] Address: [address] [place] [address] Performed By: #### 1 9123-9, 66002-1, 51270-0, 2777-1 ####[facility] [id number] [place] [address] [place] Sodium ?Tm Ur-sCncon 025 Sodium Unsp time (U) [Moles/Vol] 52 mmol/L Normal 14-216 [facility] Comment on above: Order Comment: Speci men Type: URINE SPECIMENOrdering Facility: [facility] Address: [address] [place] [address] Performed By: #### 3 5674-1, 16779-7, 86471-0 ####[facility] LABCLIA [id number] [place] [address] [place] THERAPY NTon 01-12-2025 THERAPY NT Normal [facility] THERAPY NT Normal [facility] Tacrolimus Bld-mCncon 2024 Tacrolimus (Bld) [Mass/Vol] 4.6 ng/mL Low 5.0-20.0 [facility] Comment on above: Order Comment: Speci men Type: BLOOD SPECIMENOrdering Facility: [facility] Address: [address] [place] [address] Result Comment: Ema vidualized target levels for [...] using [employer] i. Performed By: #### 2 731-8, 00727-4 ####[facility] LABCLIA [id number] [place] [address] [place] URINALYSIS, REFLEX MICROSCOP ICon 01-12-2025 Bacteria LM.HPF (Urine sed) [#/Area] Negative Normal Negative [facility] Comment on above: Order Comment: Speci men Type: URINE SPECIMENOrdering Facility: [facility] Address: [address] [place] [address] Performed By: #### L [id number] ####[facility] LABCLIA [id number] [place] [address] [place] Bilirubin Ql (U) Negative Normal Negative Clewally hernández [facility] Comment on above: Order Comment: Speci men Type: URINE SPECIMENOrdering Facility: [facility] Address: [address] [place] [address] Performed By: #### L [id number] ####[facility] LABCLIA [id number] [place] [address] [place] Clarity (Unsp spec) Clear Normal Clear [facility] Comment on above: Order Comment: Speci men Type: URINE SPECIMENOrdering Facility: [facility] Address: [address] [place] [address] Performed By: #### L [id number] ####[facility] LABCLIA [id number] [place] [address] [place] [facility] Color (U) Yellow Normal Yellow [facility] Comment on above: Order Comment: Speci men Type: URINE SPECIMENOrdering Facility: [facility] Address: [address] [place] [address] Performed By: #### L [id number] ####[facility] LABCLIA [id number] [place] [address] [place] Epithelial cells LM.HPF (Urine sed) [#/Area] None Seen Normal [facility] Comment on above: Order Comment: Speci men Type: URINE SPECIMENOrdering Facility: [facility] Address: [address] [place] [address] Performed By: #### L [id number] ####[facility] LABCLIA [id number] [place] [address] [place] Glucose Test strip (U) [Mass/Vol] Negative Normal Negative [facility] Comment on above: Order Comment: Speci men Type: URINE SPECIMENOrdering Facility: [facility] Address: [address] [place] [address] Performed By: #### L [id number] ####[facility] LABCLIA [id number] [place] [address] [place] Hemoglobin Ql (U) Negative Normal Negative [facility] Comment on above: Order Comment: Speci men Type: URINE SPECIMENOrdering Facility: [facility] Address: [address] [place] [address] Performed By: #### L [id number] ####[facility] LABCLIA [id number] [place] [address] [place] Hyaline casts (Urine sed) [#/Area] 1-3 /LPF Abnormal 0 /LPF [facility] Comment on above: Order Comment: Speci men Type: URINE SPECIMENOrdering Facility: [facility] Address: [address] [place] [address] Performed By: #### L [id number] ####[facility] LABCLIA [id number] [place] [address] [place] Ketones Ql (U) Negative Normal Negative [facility] Comment on above: Order Comment: Speci men Type: URINE SPECIMENOrdering Facility: [facility] Address: [address] [place] [address] Performed By: #### L [id number] ####[facility] LABCLIA [id number] [place] [address] [place] Leukocyte esterase Test strip Ql (U) Negative Normal Negative [facility] Comment on above: Order Comment: Speci men Type: URINE SPECIMENOrdering Facility: [facility] Address: [address] [place] [address] Performed By: #### L [id number] ####[facility] LABCLIA [id number] [place] [address] [place] Nitrite Ql (U) Negative Normal Negative [facility] Comment on above: Order Comment: Speci men Type: URINE SPECIMENOrdering Facility: [facility] Address: [address] [place] [address] Performed By: #### L [id number] ####[facility] LABCLIA [id number] [place] [address] [place] pH (U) 6.0 [pH] Normal <8.5 [facility] Comment on above: Order Comment: Speci men Type: URINE SPECIMENOrdering Facility: [facility] Address: [address] [place] [address] Performed By: #### L [id number] ####[facility] LABIA [id number] [place] [address] [place] Protein (U) [Mass/Vol] 1+ Abnormal Negative [facility] Comment on above: Order Comment: Speci men Type: URINE SPECIMENOrdering Facility: [facility] Address: [address] [place] [address] Performed By: #### L [id number] ####[facility] LABIA [id number] [place] [address] [place] RBC LM.HPF (Urine sed) [#/Area] 0-2 /HPF Normal 0-2 /HPF [facility] Comment on above: Order Comment: Speci men Type: URINE SPECIMENOrdering Facility: [facility] Address: [address] [place] [address] Performed By: #### L [id number] ####[facility] LABIA [id number] [place] [address] [place] Specific gravity (U) [Rel density] 1.014 Normal 1.005-1.030 [facility] Comment on above: Order Comment: Speci men Type: URINE SPECIMENOrdering Facility: [facility] Address: [address] [place] [address] Performed By: #### L [id number] ####[facility] LABIA [id number] [place] [address] [place] Urobilinogen Ql (U) 0.2 EU/dL Normal 0.2-1.0 EU/dL Cl [facility] Comment on above: Order Comment: Speci men Type: URINE SPECIMENOrdering Facility: [facility] Address: [address] [place] [address] Performed By: #### L [id number] ####[facility] LABIA [id number] [place] [address] [place] WBC LM.HPF (Urine sed) [#/Area] 0-5 /HPF Normal 0-5 /HPF [facility] Comment on above: Order Comment: Speci men Type: URINE SPECIMENOrdering Facility: [facility] Address: [address] [place] [address] Performed By: #### L [id number] ####[facility] LABIA [id number] [place] [address] [place] aPTT PPPon 01-12-2025 aPTT Coag (PPP) [Time] 35.8 s High 23.0-32.4 [facility] Comment on above: Order Comment: Speci men Type: BLOOD SPECIMENOrdering Facility: [facility] Address: [address] [place] [address] Performed By: #### 3 4528-0, 04023-0 ####[facility] [id number] [place] [address] [place] BARTONELLA AB PANELon 2024 [place] THOMASON IGG AB <1:64 Normal [facility] Comment on above: Order Comment: Speci men Type: BLOOD SPECIMENOrdering Facility: [facility] Address: [address] [place] [address] Result Comment: INTE RPRETIVE INFORMATION: Bartonella thomason [...] was developed and its performance characteristicsdetermined by [facility]. It has not been cleared orapproved by the [place] Food and Drug Administration. This test wasperformed in a CLIA certified laboratory and is intended forclinical purposes. Performed By: #### B ARPCRCHANG, BARTAB ####[facility] LABORATORIESIA [id number] [place] [address] [place] THOMASON IGM AB < 1:16 Normal [facility] Comment on above: Order Comment: Speci men Type: BLOOD SPECIMENOrdering Facility: [facility] Address: [address] [place] [address] Result Comment: INTE RPRETIVE INFORMATION: Bartonella thomason [...] was developed and its performance characteristicsdetermined by [facility]. It has not been cleared orapproved by the [place] Food and Drug Administration. This test wasperformed in a CLIA certified laboratory and is intended forclinical purposes.Performed By: [facility] [place], [place] [address]Qmthyujokl Director: Jc Fine MD, PhDCLIA Number: [id number] Performed By: #### B ARPCR WHGIOVANNYWB, BARTAB ####[facility]IES[facility]IA [id number] [place] [address] BARTONELLA HENSELAE AB, IGG <1:64 Normal [facility] Comment on above: Order Comment: Víctor friend Type: BLOOD SPECIMENOrdering Facility: [facility] Address: [address] [place], [place] [address] Result Comment: INTE RPRETIVE INFORMATION: Bartonella henselae [...] was developed and its performance characteristicsdetermined by [facility]. It has not been cleared orapproved by the [place] Food and Drug Administration. This test wasperformed in a CLIA certified laboratory and is intended forclinical purposes. Performed By: #### B ARPCR, WHGIOVANNYWB, BARTAB ####[facility] LABORATORIESCLIA [id number] [place] [address] BARTONELLA HENSELAE AB, IGM < 1:16 Normal [facility] Comment on above: Order Comment: Víctor ronna Type: BLOOD SPECIMENOrdering Facility: [facility] Address: [address] [place], [place] [address] Result Comment: INTE RPRETIVE INFORMATION: Bartonella henselae [...] was developed and its performance characteristicsdetermined by [facility]. It has not been cleared orapproved by the [place] Food and Drug Administration. This test wasperformed in a CLIA certified laboratory and is intended forclinical purposes. Performed By: #### B ARPCRCHANG, BARTAB ####[facility]IESCLIA [id number] [place] [address] BARTONELLA PCRon 01-11-2025 BARTONELLA PCR RESULT Not detected Normal [facility] Comment on above: Order Comment: Speci men Type: BLOOD SPECIMENOrdering Facility: [facility] Address: [address] [place] [address] Result Comment: NOT DETECTED - A negative result does not rule out thepresence of PCR inhibitors in the patient specimen orassay specific nucleic acid in concentrations below thelevel of detection by the assay.INTERPRETIVE INFORMATION: Bartonella Species Detection by PCRThis test was developed and its performance characteristicsdetermined by [facility]. It has not been cleared orapproved by the [place] Food and Drug Administration. This test wasperformed in a CLIA certified laboratory and is intended forclinical purposes.Performed By: [facility] [place], [place] [address]Ellbvcnyvh Director: Jc Fine MD, PhDCLIA Number: [id number] Performed By: #### B REGINALDOPCRCHANG, BARTAB ####[facility]IESCLIA [id number] [place] [address] BARTONELLA PCR SOURCE Blood Normal [facility] Comment on above: Order Comment: Speci men Type: BLOOD SPECIMENOrdering Facility: [facility] Address: [address] [place] [address] Performed By: #### B REGINALDOPCRCHANG, BARTAB ####[facility]IESCLIA [id number] [place] [address] Bacteria Bld Culton 01-11-20 25 Bacteria identified Cx Nom (Bld) CULTURE, BLOOD: No growth 5 days Normal [facility] Comment on above: Performed By: #### 6 00-7 ####[facility] LABCLIA [id number] [place] [address] [place] Bacteria identified Cx Nom (Bld) CULTURE, BLOOD: No growth 5 days Normal [facility] Comment on above: Performed By: #### 6 00-7 ####[facility] LABCLIA [id number] [place] [address] [place] CASE MGT INIT ASSESon 2024 CASE MGT INIT ASSES Normal [facility] CBC W Ordered Manual Differe ntial panel (Bld)on 01-11-2025 Basophils (Bld) [#/Vol] 10*3/uL Normal <0.11 [facility] Comment on above: Order Comment: Speci men Type: BLOOD SPECIMENOrdering Facility: [facility] Address: [address] [place] [address] Performed By: #### S TFREV, 98315-2 ####[facility] LABCLIA [id number] [place] [address] [place] Basophils/100 WBC (Bld) 0.1 % Normal [facility] Comment on above: Order Comment: Speci men Type: BLOOD SPECIMENOrdering Facility: [facility] Address: [address] [place] [address] Performed By: #### S TFREV, 59966-2 ####[facility] LABCLIA [id number] [place] [address] [place] Differential cell count method Nom (Bld) Auto Normal [facility] Comment on above: Order Comment: Speci men Type: BLOOD SPECIMENOrdering Facility: [facility] Address: [address] [place] [address] Performed By: #### S TFREV, 35635-2 ####[facility] LABCLIA [id number] [place] [address] [place] Eosinophils (Bld) [#/Vol] 0.07 10*3/uL Normal <0.46 [facility] Comment on above: Order Comment: Speci men Type: BLOOD SPECIMENOrdering Facility: [facility] Address: [address] [place] [address] Performed By: #### S TFREV, 86290-6 ####[facility] LABCLIA [id number] [place] [address] [place] Eosinophils/100 WBC (Bld) 0.4 % Normal [facility] Comment on above: Order Comment: Speci men Type: BLOOD SPECIMENOrdering Facility: [facility] Address: [address] [place] [address] Performed By: #### S TFREV, 12320-1 ####[facility] LABCLIA [id number] [place] [address] [place] Erythrocyte distribution width (RBC) [Ratio] 14.7 % Normal 11.5-15.0 [facility] Comment on above: Order Comment: Speci men Type: BLOOD SPECIMENOrdering Facility: [facility] Address: [address] [place] [address] Performed By: #### S TFREV, 95367-5 ####[facility] LABCLIA [id number] [place] [address] [place] Hematocrit (Bld) [Volume fraction] 26.2 % Low 36.0-46.0 [facility] Comment on above: Order Comment: Speci men Type: BLOOD SPECIMENOrdering Facility: [facility] Address: [address] [place] [address] Performed By: #### S TFREV, 67271-3 ####[facility] LABCLIA [id number] [place] [address] [place] Hemoglobin (Bld) [Mass/Vol] 8.4 g/dL Low 11.5-15.5 [facility] Comment on above: Order Comment: Speci men Type: BLOOD SPECIMENOrdering Facility: [facility] Address: [address] [place] [address] Performed By: #### S TFREV, 63568-3 ####[facility] LABCLIA [id number] [place] [address] [place] Immature granulocytes (Bld) [#/Vol] 0.17 10*3/uL High <0.10 [facility] Comment on above: Order Comment: Speci men Type: BLOOD SPECIMENOrdering Facility: [facility] Address: [address] [place] [address] Performed By: #### S TFREV, 88933-1 ####[facility] LABCLIA [id number] [place] [address] [place] Immature granulocytes/100 WBC (Bld) 1.0 % Normal [facility] Comment on above: Order Comment: Speci men Type: BLOOD SPECIMENOrdering Facility: [facility] Address: [address] [place] [address] Performed By: #### S TFREV, 24555-6 ####[facility] LABCLIA [id number] [place] [address] [place] Lymphocytes (Bld) [#/Vol] 0.70 10*3/uL Low 1.00-4.00 [facility] Comment on above: Order Comment: Speci men Type: BLOOD SPECIMENOrdering Facility: [facility] Address: [address] [place] [address] Performed By: #### S TFREV, 22870-0 ####[facility] LABCLIA [id number] [place] [address] [place] Lymphocytes/100 WBC (Bld) 4.3 % Normal [facility] Comment on above: Order Comment: Speci men Type: BLOOD SPECIMENOrdering Facility: [facility] Address: [address] [place] [address] Performed By: #### S TFREV, 15237-3 ####[facility] LABCLIA [id number] [place] [address] [place] MCH (RBC) [Entitic mass] 29.1 pg Normal 26.0-34.0 [facility] Comment on above: Order Comment: Speci men Type: BLOOD SPECIMENOrdering Facility: [facility] Address: [address] [place] [address] Performed By: #### S TFREV, 62863-0 ####[facility] LABCLIA [id number] [place] [address] [place] MCHC (RBC) [Mass/Vol] 32.1 g/dL Normal 30.5-36.0 [facility] Comment on above: Order Comment: Speci men Type: BLOOD SPECIMENOrdering Facility: [facility] Address: [address] [place] [address] Performed By: #### S TFREV, 07712-1 ####[facility] LABCLIA [id number] [place] [address] [place] MCV (RBC) [Entitic vol] 90.7 fL Normal 80.0-100.0 [facility] Comment on above: Order Comment: Speci men Type: BLOOD SPECIMENOrdering Facility: [facility] Address: [address] [place] [address] Performed By: #### S TFREV, 25970-8 ####[facility] LABCLIA [id number] [place] [address] [place] Monocytes (Bld) [#/Vol] 1.14 10*3/uL High <0.87 [facility] Comment on above: Order Comment: Speci men Type: BLOOD SPECIMENOrdering Facility: [facility] Address: [address] [place] [address] Performed By: #### S TFREV, 41241-6 ####[facility] LABCLIA [id number] [place] [address] [place] Monocytes/100 WBC (Bld) 7.0 % Normal [facility] Comment on above: Order Comment: Speci men Type: BLOOD SPECIMENOrdering Facility: [facility] Address: [address] [place] [address] Performed By: #### S TFREV, 18339-4 ####[facility] LABCLIA [id number] [place] [address] [place] Neutrophils (Bld) [#/Vol] 14.24 10*3/uL High 1.45-7.50 [facility] Comment on above: Order Comment: Speci men Type: BLOOD SPECIMENOrdering Facility: [facility] Address: [address] [place] [address] Performed By: #### S TFREV, 54736-9 ####[facility] LABCLIA [id number] [place] [address] [place] Neutrophils/100 WBC (Bld) 87.2 % Normal [facility] Comment on above: Order Comment: Speci men Type: BLOOD SPECIMENOrdering Facility: [facility] Address: [address] [place] [address] Performed By: #### S TFREV, 20680-3 ####[facility] LABCLIA [id number] [place] [address] [place] Nucleated RBC (Bld) [#/Vol] 10*3/uL Normal <0.01 [facility] Comment on above: Order Comment: Speci men Type: BLOOD SPECIMENOrdering Facility: [facility] Address: [address] [place] [address] Performed By: #### S TFREV, 48632-2 ####[facility] LABCLIA [id number] [place] [address] [place] Nucleated RBC/100 WBC (Bld) [Ratio] 0.0 /100 WBC Normal [facility] Comment on above: Order Comment: Speci men Type: BLOOD SPECIMENOrdering Facility: [facility] Address: [address] [place] [address] Performed By: #### S TFREV, 89736-3 ####[facility] LABCLIA [id number] [place] [address] [place] Platelet mean volume (Bld) [Entitic vol] 9.4 fL Normal 9.0-12.7 [facility] Comment on above: Order Comment: Speci men Type: BLOOD SPECIMENOrdering Facility: [facility] Address: [address] [place] [address] Performed By: #### S TFREV, 94605-5 ####[facility] LABIA [id number] [place] [address] [place] Platelets (Bld) [#/Vol] 135 10*3/uL Low 150-400 [facility] Comment on above: Order Comment: Speci men Type: BLOOD SPECIMENOrdering Facility: [facility] Address: [address] [place] [address] Performed By: #### S TFREV, 52816-8 ####[facility] LABIA [id number] [place] [address] [place] RBC (Bld) [#/Vol] 2.89 10*6/uL Low 3.90-5.20 [facility] Comment on above: Order Comment: Speci men Type: BLOOD SPECIMENOrdering Facility: [facility] Address: [address] [place] [address] Performed By: #### S TFREV, 99848-1 ####[facility] LABIA [id number] [place] [address] [place] WBC (Bld) [#/Vol] 16.34 10*3/uL High 3.70-11.00 [facility] Comment on above: Order Comment: Speci men Type: BLOOD SPECIMENOrdering Facility: [facility] Address: [address] [place] [address] Performed By: #### S TFREV, 39361-4 ####[facility] LABCLIA [id number] [place] [address] [place] CBC panel Auto (Bld)on 01-11 Erythrocyte distribution width (RBC) [Ratio] 14.9 % Normal 11.5-15.0 [facility] Comment on above: Order Comment: Speci men Type: BLOOD SPECIMENOrdering Facility: [facility] Address: [address] [place] [address] Performed By: #### 5 8410-2 ####[facility] LABIA [id number] [place] [address] [place] Hematocrit (Bld) [Volume fraction] 25.7 % Low 36.0-46.0 [facility] Comment on above: Order Comment: Speci men Type: BLOOD SPECIMENOrdering Facility: [facility] Address: [address] [place] [address] Performed By: #### 5 8410-2 ####[facility] LABIA [id number] [place] [address] [place] Hemoglobin (Bld) [Mass/Vol] 8.4 g/dL Low 11.5-15.5 [facility] Comment on above: Order Comment: Speci men Type: BLOOD SPECIMENOrdering Facility: [facility] Address: [address] [place] [address] Performed By: #### 5 8410-2 ####[facility] LABIA [id number] [place] [address] [place] MCH (RBC) [Entitic mass] 28.6 pg Normal 26.0-34.0 [facility] Comment on above: Order Comment: Speci men Type: BLOOD SPECIMENOrdering Facility: [facility] Address: [address] [place] [address] Performed By: #### 5 8410-2 ####[facility] LABIA [id number] [place] [address] [place] MCHC (RBC) [Mass/Vol] 32.7 g/dL Normal 30.5-36.0 [facility] Comment on above: Order Comment: Speci men Type: BLOOD SPECIMENOrdering Facility: [facility] Address: [address] [place] [address] Performed By: #### 5 8410-2 ####[facility] LABCLIA [id number] [place] [address] [place] MCV (RBC) [Entitic vol] 87.4 fL Normal 80.0-100.0 [facility] Comment on above: Order Comment: Speci men Type: BLOOD SPECIMENOrdering Facility: [facility] Address: [address] [place] [address] Performed By: #### 5 8410-2 ####[facility] LABCLIA [id number] [place] [address] [place] Nucleated RBC (Bld) [#/Vol] 10*3/uL Normal <0.01 [facility] Comment on above: Order Comment: Speci men Type: BLOOD SPECIMENOrdering Facility: [facility] Address: [address] [place] [address] Performed By: #### 5 8410-2 ####[facility] LABCLIA [id number] [place] [address] [place] Platelet mean volume (Bld) [Entitic vol] 10.4 fL Normal 9.0-12.7 [facility] Comment on above: Order Comment: Speci men Type: BLOOD SPECIMENOrdering Facility: [facility] Address: [address] [place] [address] Performed By: #### 5 8410-2 ####[facility] LABCLIA [id number] [place] [address] [place] Platelets (Bld) [#/Vol] 126 10*3/uL Low 150-400 [facility] Comment on above: Order Comment: Speci men Type: BLOOD SPECIMENOrdering Facility: [facility] Address: [address] [place] [address] Performed By: #### 5 8410-2 ####[facility] LABCLIA [id number] [address] [address] [place] RBC (Bld) [#/Vol] 2.94 10*6/uL Low 3.90-5.20 [facility] Comment on above: Order Comment: Speci men Type: BLOOD SPECIMENOrdering Facility: [facility] Address: [address] [place] [address] Performed By: #### 5 8410-2 ####[facility] LABCLIA [id number] [place] [address] [place] WBC (Bld) [#/Vol] 16.59 10*3/uL High 3.70-11.00 [facility] Comment on above: Order Comment: Speci men Type: BLOOD SPECIMENOrdering Facility: [facility] Address: [address] [place] [address] Performed By: #### 5 8410-2 ####[facility] LABCLIA [id number] [place] [id number] [place] CONSULTon 01-11-2025 CONSULT Normal [facility] CONSULT Normal [facility] CONSULT Normal [facility] CONSULT Normal [facility] CRP SerPl-mCncon 01-11-2025 CRP [Mass/Vol] 2.5 mg/dL High <0.9 [facility] Comment on above: Order Comment: Speci men Type: BLOOD SPECIMENOrdering Facility: [facility] Address: [address] [place] [address] Performed By: #### 2 324-2, 2132-9, 2276-4, 27199-0, 1988-5, 58353-9, 44170-1, 2777-1 ####[facility] LABCLIA [id number] [address] [place] CHEST WO IVCONon 01-11-[address] CHEST WO IVCON Normal [facility] CT FLANK WO IVCONon 01-11-[address] FLANK WO IVCON Normal [facility] CYTOMEGALOVIRUS (CMV) DNA, Q UANTITATIVE PCR, PLASMAon 01-11-2025 CMV DNA ULICES+probe [#/Vol] 464 IU/mL High [facility] Comment on above: Order Comment: Speci men Type: BLOOD SPECIMENOrdering Facility: [facility] Address: [address] [place] [address] Performed By: #### C MVQNT ####[facility] LABCLIA [id number] [place] [address] [place] CMV DNA ULICES+probe [Log #/Vol] 2.67 log IU/mL High [facility] Comment on above: Order Comment: Speci men Type: BLOOD SPECIMENOrdering Facility: [facility] Address: [address] [place] [address] Performed By: #### C MVQNT ####[facility] LABCLIA [id number] [place] [address] [place] CMV DNA ULICES+probe Qn (P) Detected Abnormal Not Detected [facility] Comment on above: Order Comment: Speci men Type: BLOOD SPECIMENOrdering Facility: [facility] Address: [address] [place] [address] Performed By: #### C MVQNT ####[facility] LABCLIA [id number] [place] [address] [place] Comprehensive metabolic 2000 panelon 01-11-2025 Albumin [Mass/Vol] 2.6 g/dL Low 3.9-4.9 [facility] Comment on above: Order Comment: Speci men Type: BLOOD SPECIMENOrdering Facility: [facility] Address: [address] [place] [address] Performed By: #### 2 324-2, 2132-9, 2276-4, 90505-8, 1988-5, 35731-5, 15463-3, 2776- ####[facility] LABCLIA [id number] [address] [address] [place] ALP [Catalytic activity/Vol] 166 U/L High 34-123 [facility] Comment on above: Order Comment: Speci men Type: BLOOD SPECIMENOrdering Facility: [facility] Address: [address] [place] [address] Performed By: #### 2 324-2, 2131-9, 6-4, 25312-4, 1988-04, , , 2776-12 ####[facility] LABCLIA [id number] [place] [id number] [place] ALT [Catalytic activity/Vol] 24 U/L Normal 7-38 [facility] Comment on above: Order Comment: Speci men Type: BLOOD SPECIMENOrdering Facility: [facility] Address: [address] [place] [address] Performed By: #### 2 324-2, 2131-9, 2275-4, 60864-9, 1988-04, , , 2776-12 ####[facility] LABCLIA [id number] [place] [id number] [place] Anion gap [Moles/Vol] 16 mmol/L High 8-15 [facility] Comment on above: Order Comment: Speci men Type: BLOOD SPECIMENOrdering Facility: [facility] Address: [address] [place] [address] Performed By: #### 2 324-2, 2131-9, 6-4, 25899-8, 1988-04, , , 2776-12 ####[facility] LABCLIA [id number] [address] [address] [place] AST [Catalytic activity/Vol] 31 U/L Normal 13-35 [facility] Comment on above: Order Comment: Speci men Type: BLOOD SPECIMENOrdering Facility: [facility] Address: [address] [place] [address] Result Comment: Resu lts may be falsely increased due to interference from hemolysis. Suggest reorder as clinically indicated. Performed By: #### 2 324-2, 2-9, 6-4, 45101-0, 1988-04, , , 2776- ####[facility] LABCLIA [id number] [address] [address] [place] Bilirubin [Mass/Vol] 0.2 mg/dL Normal 0.2-1.3 [facility] Comment on above: Order Comment: Speci men Type: BLOOD SPECIMENOrdering Facility: [facility] Address: [address] [place] [address] Performed By: #### 2 324-2, 2131-9, 2275-, 53529-6, 1988-04, , , 2776- ####[facility] LABCLIA [id number] [place] [id number] [place] Calcium [Mass/Vol] 6.4 mg/dL Low 8.5-10.2 [facility] Comment on above: Order Comment: Speci men Type: BLOOD SPECIMENOrdering Facility: [facility] Address: [address] [place] [address] Performed By: #### 2 324-2, 2131-9, 2275-4, 48301-8, 1988-04, , , 2776- ####[facility] LABCLIA [id number] [place] [id number] [place] Chloride [Moles/Vol] 109 mmol/L High 98-107 [facility] Comment on above: Order Comment: Speci men Type: BLOOD SPECIMENOrdering Facility: [facility] Address: [address] [place] [address] Performed By: #### 2 324-2, 2-9, 6-4, 12322-3, 1988-04, , , 2776- ####[facility] LABCLIA [id number] [address] [address] [place] CO2 [Moles/Vol] 19 mmol/L Low 22-30 [facility] Comment on above: Order Comment: Speci men Type: BLOOD SPECIMENOrdering Facility: [facility] Address: [address] [place] [address] Performed By: #### 2 324-2, 2-9, 6-4, 99784-4, 1988-04, , , 2776- ####[facility] LABCLIA [id number] [address] [address] [place] Creatinine [Mass/Vol] 4.28 mg/dL High 0.58-0.96 [facility] Comment on above: Order Comment: Speci men Type: BLOOD SPECIMENOrdering Facility: [facility] Address: [address] [place] [address] Performed By: #### 2 324-2, 2131-9, 2275-4, , 1988-04, , , 2776- ####[facility] LABCLIA [id number] [place] [id number] [place] Creatinine and Glomerular filtration rate.predicted panel (S/P/Bld) 10 mL/min/1.73m??? Low >=60 [facility] Comment on above: Order Comment: Speci men Type: BLOOD SPECIMENOrdering Facility: [facility] Address: [address] [place] [address] Result Comment: Kelsey mated Glomerular Filtration Rate [...] GFR. Performed By: #### 2 324-2, 2131-9, 2275-4, , 1988-04, , , 2776- ####[facility] LABCLIA [id number] [address] [address] [place] Potassium [Moles/Vol] 4.0 mmol/L Normal 3.7-5.1 [facility] Comment on above: Order Comment: Speci men Type: BLOOD SPECIMENOrdering Facility: [facility] Address: [address] [place] [address] Performed By: #### 2 324-2, 2131-9, 2276-03, , 1988-04, , , 2776-12 ####[facility] LABCLIA [id number] [place] [address] [place] Protein [Mass/Vol] 4.2 g/dL Low 6.3-8.0 [facility] Comment on above: Order Comment: Speci men Type: BLOOD SPECIMENOrdering Facility: [facility] Address: [address] [place] [address] Performed By: #### 2 324-2, 2131-9, 2275-4, 13032-0, 1988-04, , , 2776-12 ####[facility] LABIA [id number] [place] [id number] [place] Sodium [Moles/Vol] 144 mmol/L Normal 136-144 [facility] Comment on above: Order Comment: Speci men Type: BLOOD SPECIMENOrdering Facility: [facility] Address: [address] [place] [address] Performed By: #### 2 324-2, 2131-9, 2275-4, 87456-2, 1988-04, , , 2776-12 ####[facility] LABCLIA [id number] [address] [address] [place] Urea nitrogen [Mass/Vol] 81 mg/dL High 7-21 [facility] Comment on above: Order Comment: Speci men Type: BLOOD SPECIMENOrdering Facility: [facility] Address: [address] [place] [address] Performed By: #### 2 324-2, 2132-9, 2276-4, 83178-3, 1987-5, 11931-9, 41882-3, 2776- ####[facility] LABCLIA [id number] [place] [address] [place] Cryptoc Ag Spec Ql LAon 01-02 Cryptococcus sp Ag LA Ql (Unsp spec) CRYPTOCOCCUS ANTIGEN : Cryptococcal Antigen NOT DETECTED by Lateral flow immunoassay. Normal [facility] Comment on above: Performed By: #### 4 3228-6 ####[facility] LABCLIA [id number] [place] [address] [place] EBV DNA ULICES+probe (Bld) [#/V ol]on 01-11-2025 EBV DNA ULICES+probe [#/Vol] Detected Abnormal Not detected [facility] Comment on above: Order Comment: Speci men Type: BLOOD SPECIMENOrdering Facility: [facility] Address: [address] [place] [address] Result Comment: 443 Performed By: #### 3 6923-1 ####[facility] LABCLIA [id number] [place] [address] [place] EBV DNA SerPl ULICES+probe-Log# 2.65 Log IU/mL High [facility] Comment on above: Order Comment: Speci men Type: BLOOD SPECIMENOrdering Facility: [facility] Address: [address] [place] [address] Performed By: #### 3 6923-1 ####[facility] LABCLIA [id number] [place] [id number] [place] ECG COMPLETEon 01-11-2025 ECG COMPLETE Normal [facility] Ferritin SerPl-mCncon 2024 Ferritin [Mass/Vol] 652.0 ng/mL High 14.7-205.1 [facility] Comment on above: Order Comment: Speci men Type: BLOOD SPECIMENOrdering Facility: [facility] Address: [address] [place] [address] Performed By: #### 2 324-2, 2-9, 6-4, 03738-5, 1988-04, , , 2776- ####[facility] LABCLIA [id number] [place] [address] [place] Folate SerPl-[facility] 01-11-20 25 Folate [Mass/Vol] 3.2 ng/mL Low >4.7 [facility] Comment on above: Order Comment: Speci men Type: BLOOD SPECIMENOrdering Facility: [facility] Address: [address] [place] [address] Performed By: #### 2 284-8 ####[facility] LABCLIA [id number] [place] [address] [place] GGT SerPl-cCncon 01-11-2025 Gamma glutamyl transferase [Catalytic activity/Vol] 19 U/L Normal 6-46 [facility] Comment on above: Order Comment: Speci men Type: BLOOD SPECIMENOrdering Facility: [facility] Address: [address] [place] [address] Performed By: #### 2 324-2, 2-9, 6-4, 63644-7, 1988-04, , , 2776- ####[facility] LABCLIA [id number] [place] [id number] [place] Gas + CO Pnl BldVon 01-11-20 25 Glucose [Mass/Vol] 60 mg/dL Low 74-99 [facility] Comment on above: Order Comment: Speci men Type: VENOUS BLOOD SPECIMENOrdering Facility: [facility] Address: [address] [place] [address] Performed By: #### 2 4344-4 ####[facility] LABCLIA [id number] [place] [address] [place] Order Comment: Speci men Type: BLOOD SPECIMENOrdering Facility: [facility] Address: [address] [place] [address] Result Comment: The [place] [employer] (ADA) provides guidance for cutoff [...] Standards of Medical Care in Diabetes 2016, [place] [employer]. Diabetes Care. 2016.39(Suppl 1). Performed By: #### 2 324-2, 2132-9, 2276-4, 91069-8, 1988-5, 93638-2, 15677-5, 2777-1 ####[facility] LABCLIA [id number] [place] [address] [place] Gas and Carbon monoxide pane l (BldV)on 01-11-2025 BASE DEFICIT, VENOUS -3 mmol/L Low -2-0 [facility] Comment on above: Order Comment: Verenai men Type: VENOUS BLOOD SPECIMENOrdering Facility: [facility] Address: [address] [place] [address] Performed By: #### 2 4344-4 ####[facility] LABCLIA [id number] [place] [address] [place] Body temperature 98.78 [degF] Normal [facility] Comment on above: Order Comment: Speci men Type: VENOUS BLOOD SPECIMENOrdering Facility: [facility] Address: [address] [place] [address] Performed By: #### 2 4344-4 ####[facility] LABCLIA [id number] [place] [address] [place] Calcium.ionized (Bld) [Mass/Vol] 0.93 mmol/L Low 1.08-1.30 [facility] Comment on above: Order Comment: Speci men Type: VENOUS BLOOD SPECIMENOrdering Facility: [facility] Address: [address] [place] [address] Performed By: #### 2 4344-4 ####[facility] LABIA [id number] [place] [address] [place] Calcium.ionized adjusted to pH 7.4 (BldA) [Moles/Vol] 0.91 mmol/L Low 1.08-1.30 [facility] Comment on above: Order Comment: Speci men Type: VENOUS BLOOD SPECIMENOrdering Facility: [facility] Address: [address] [place] [address] Performed By: #### 2 4344-4 ####[facility] LABIA [id number] [place] [address] [place] Carboxyhemoglobin (BldV) [Mass fraction] 1.5 % Normal 0.0-2.0 [facility] Comment on above: Order Comment: Speci men Type: VENOUS BLOOD SPECIMENOrdering Facility: [facility] Address: [address] [place] [address] Result Comment: Carb oxyhemoglobin Reference Range for Smokers: 2.0-8.0% Performed By: #### 2 4344-4 ####[facility] LABCLIA [id number] [place] [address] [place] CO2 (BldV) [Partial pressure] 40 mm[Hg] Low 42-55 [facility] Comment on above: Order Comment: Speci men Type: VENOUS BLOOD SPECIMENOrdering Facility: [facility] Address: [address] [place] [address] Performed By: #### 2 4344-4 ####[facility] LABCLIA [id number] [place] [address] [place] CO2 adjusted to patient's actual temperature (BldV) [Partial pressure] 40 mmHg Low 42-55 [facility] Comment on above: Order Comment: Speci men Type: VENOUS BLOOD SPECIMENOrdering Facility: [facility] Address: [address] [place] [address] Performed By: #### 2 4344-4 ####[facility] LABCLIA [id number] [place] [address] [place] HCO3 (Bld) [Moles/Vol] 22 mmol/L Low 24-28 [facility] Comment on above: Order Comment: Speci men Type: VENOUS BLOOD SPECIMENOrdering Facility: [facility] Address: [address] [place] [address] Performed By: #### 2 4344-4 ####[facility] LABIA [id number] [place] [address] [place] Hematocrit (Bld) [Volume fraction] 26.9 % Low 36.0-46.0 [facility] Comment on above: Order Comment: Speci men Type: VENOUS BLOOD SPECIMENOrdering Facility: [facility] Address: [address] [place] [address] Performed By: #### 2 4344-4 ####[facility] LABCLIA [id number] [place] [address] [place] Hemoglobin (Bld) [Mass/Vol] 8.7 g/dL Low 11.5-15.5 [facility] Comment on above: Order Comment: Speci men Type: VENOUS BLOOD SPECIMENOrdering Facility: [facility] Address: [address] [place] [address] Performed By: #### 2 4344-4 ####[facility] LABCLIA [id number] [address] [address] [place] Lactate [Moles/Vol] 1.4 mmol/L Normal 0.5-2.2 [facility] Comment on above: Order Comment: Speci men Type: VENOUS BLOOD SPECIMENOrdering Facility: [facility] Address: [address] [place] [address] Performed By: #### 2 4344-4 ####[facility] LABCLIA [id number] [place] [address] [place] Methemoglobin (Bld) [Mass fraction] 1.4 % Normal 0.0-1.5 [facility] Comment on above: Order Comment: Speci men Type: VENOUS BLOOD SPECIMENOrdering Facility: [facility] Address: [address] [place] [address] Performed By: #### 2 4344-4 ####[facility] LABIA [id number] [place] [address] [place] O2 THERAPY RA=Room Air Normal [facility] Comment on above: Order Comment: Speci men Type: VENOUS BLOOD SPECIMENOrdering Facility: [facility] Address: [address] [place] [address] Performed By: #### 2 4344-4 ####[facility] LABCLIA [id number] [place] [address] [place] Oxygen (BldV) [Partial pressure] 42 mm[Hg] Normal 35-45 [facility] Comment on above: Order Comment: Speci men Type: VENOUS BLOOD SPECIMENOrdering Facility: [facility] Address: [address] [place], [place] [address] Performed By: #### 2 4344-4 ####[facility] LABCLIA [id number] [place] [id number] [place] Oxygen adjusted to patient's actual temperature (BldV) [Partial pressure] 42 mmHg Normal 35-45 [facility] Comment on above: Order Comment: Speci men Type: VENOUS BLOOD SPECIMENOrdering Facility: [facility] Address: [facility] [place] [id number] Performed By: #### 2 4344-4 ####[facility] LABCLIA [id number] [address] [address] [place] Oxygen saturation in Venous blood 73 % Normal 60-85 [facility] Comment on above: Order Comment: Speci men Type: VENOUS BLOOD SPECIMENOrdering Facility: [facility] Address: [address] [place] [address] Performed By: #### 2 4344-4 ####[facility] LABCLIA [id number] [place] [address] [place] Oxyhemoglobin (BldV) [Mass fraction] 71 % Normal 60-85 [facility] Comment on above: Order Comment: Speci men Type: VENOUS BLOOD SPECIMENOrdering Facility: [facility] Address: [address] [place] [address] Performed By: #### 2 4344-4 ####[facility] LABCLIA [id number] [place] [address] [place] pH (BldV) 7.35 [pH] Normal 7.32-7.42 [facility] Comment on above: Order Comment: Speci men Type: VENOUS BLOOD SPECIMENOrdering Facility: [facility] Address: [address] [place] [address] Performed By: #### 2 4344-4 ####[facility] LABCLIA [id number] [place] [address] [place] pH adjusted to patient's actual temperature (BldV) 7.35 Normal 7.32-7.42 [facility] Comment on above: Order Comment: Speci men Type: VENOUS BLOOD SPECIMENOrdering Facility: [facility] Address: [address] [place] [address] Performed By: #### 2 4344-4 ####[facility] LABIA [id number] [place] [address] [place] Potassium [Moles/Vol] 3.8 mmol/L Normal 3.5-5.0 [facility] Comment on above: Order Comment: Speci men Type: VENOUS BLOOD SPECIMENOrdering Facility: [facility] Address: [address] [place] [address] Performed By: #### 2 4344-4 ####[facility] [id number] [place] [address] [place] Sodium [Moles/Vol] 141 mmol/L Normal 136-144 [facility] Comment on above: Order Comment: Speci men Type: VENOUS BLOOD SPECIMENOrdering Facility: [facility] Address: [address] [place] [address] Performed By: #### 2 4344-4 ####[facility] [id number] [place] [address] [place] H capsul Ab Ser Ql IDon 01-02 H. capsulatum Ab Immune diff Ql (S) Negative Normal Negative [facility] Comment on above: Order Comment: Speci men Type: BLOOD SPECIMENOrdering Facility: [facility] Address: [address] [place] [address] Result Comment: Hist oplasma antibody test by Immunodiffusion may be used as an aid in diagnosis of infection with the dimorphic fungus Histoplasma capsulatum. Histoplasma antibody test has low overall diagnostic sensitivity especially with localized disease. Immunodiffusion test is more specific but less sensitive than complement fixation test. Clinical and epidemiological correlation is required. Performed By: #### 5 218-3 ####[facility] [id number] [place] [address] [place] HISTO CAPSULATUM AGon 2024 HISTOPLASMA ANTIGEN, SERUM Not detected Normal Not Detected [facility] Comment on above: Order Comment: Speci men Type: BLOOD SPECIMENOrdering Facility: [facility] Address: [address] [place] [address] Result Comment: Perf ormed By: [id number] [place], [place] [id number] Director: Jc Fine MD, PhDCLIA Number: [id number] Performed By: #### S HISTO ####[facility] LABORATORIESCLIA [id number] [place] [address] HISTOPLASMA ANTIGEN, SERUM INTERP Not detected Normal Not Detected [facility] Comment on above: Order Comment: Speci men Type: BLOOD SPECIMENOrdering Facility: [facility] Address: [address] [place] [address] Result Comment: INTE RPRETIVE INFORMATION: Histoplasma Antigen [...] was developed and its performance characteristicsdetermined by [facility]. It has not been cleared orapproved by the [place] Food and Drug Administration. This test wasperformed in a CLIA certified laboratory and is intended forclinical purposes. Performed By: #### S HISTO ####[facility] LABORATORIESCLIA [id number] [place] [address] HISTOPLASMA AB CFon 01-11-20 25 HISTOPLASMA MYCELIA, CF <1:8 Normal <1:8 [facility] Comment on above: Order Comment: Speci men Type: BLOOD SPECIMENOrdering Facility: [facility] Address: [address] [place] [address] Result Comment: INTE RPRETIVE INFORMATION: Histoplasma Mycelia Antibodies by FIELD HANDYMAN titer of 1:8 or greater is generally considered presumptiveevidence of histoplasmosis. A titer of 1:32 or greater or risingtiters indicate strong presumptive evidence of histoplasmosis.Cross reactions, usually at lower titers, may occur with otherfungal diseases. Performed By: #### H ISTCF ####[facility] LABORATORIESCLIA [id number] [place] [address] HISTOPLASMA YEAST, CF <1:8 Normal <1:8 [facility] Comment on above: Order Comment: Speci men Type: BLOOD SPECIMENOrdering Facility: [facility] Address: [address] [place] [address] Result Comment: INTE RPRETIVE INFORMATION: Histoplasma Yeast Antibodies by FIELD HANDY[employer] titer of 1:8 or greater is generally considered presumptiveevidence of histoplasmosis. A titer of 1:32 or greater or risingtiters indicate strong presumptive evidence of histoplasmosis.Cross reactions, usually at lower titers, may occur with otherfungal diseases.Performed By: [facility] [employer] [id number] [place], [place] [id number] Director: Jc Fine MD, PhDCLIA Number: [id number] Performed By: #### H ISTCF ####[facility]IESCL[facility] [id number] [place] [address] HISTORY PHYSICALon HISTORY PHYSICAL Normal [facility] Iron and Iron binding capaci ty panelon 01-11-2025 Iron [Mass/Vol] 74 ug/dL Normal 41-186 [facility] Comment on above: Order Comment: Speci men Type: BLOOD SPECIMENOrdering Facility: [facility] Address: [address] [place] [address] Performed By: #### 2 324-2, 2132-9, 2276-4, 76154-2, 1988-5, 78544-2, 46365-0, 2777-1 ####[facility] LABCLIA [id number] [place] [id number] [place] [address] [place] Iron binding capacity [Mass/Vol] 130 ug/dL Low 232-386 [facility] Comment on above: Order Comment: Speci men Type: BLOOD SPECIMENOrdering Facility: [facility] Address: [address] [place] [address] Performed By: #### 2 324-2, 2-9, 6-4, 57883-6, 1988-04, , , 2776- ####[facility] LABCLIA [id number] [place] [address] [place] Iron/TIBC [Molar ratio] 56.9 % Normal 15.0-57.0 [facility] Comment on above: Order Comment: Speci men Type: BLOOD SPECIMENOrdering Facility: [facility] Address: [address] [place] [address] Performed By: #### 2 324-2, 2131-9, 2275-4, , 1988-04, , , 2776-12 ####[facility] LABIA [id number] [place] [address] [place] Magnesium SerPl-mCncon 01-11 Magnesium [Mass/Vol] 1.6 mg/dL Low 1.7-2.3 [facility] Comment on above: Order Comment: Speci men Type: BLOOD SPECIMENOrdering Facility: [facility] Address: [address] [place] [address] Performed By: #### 2 324-2, 2-9, 6-4, 62922-7, 1988-04, , , 2776- ####[facility] LABCLIA [id number] [place] [address] [place] Microorganism Spec Culton Microorganism identified Cx Nom (Unsp spec) CULTURE, FUNGAL: No Fungus isolated after 28 days Normal [facility] Comment on above: Performed By: #### 1 1475-1 ####[facility] LABIA [id number] [place] [address] [place] NURSING PROGon 01-11-2025 NURSING PROG Normal [facility] NURSING PROG Normal [facility] PATHOLOGIST INTERPRETATION C BC/DIFFon 01-11-2025 [employer] review Frederick (Unsp spec) [Interp] No review performed. Normal [facility] Comment on above: Order Comment: Speci men Type: BLOOD SPECIMENOrdering Facility: [facility] Address: [address] [place] [address] Performed By: #### S TFRBROCK, 06583-9 ####[facility] LABIA [id number] [place] [address] [place] STAFF REVIEW, CBCDIF Normal [facility] Comment on above: Order Comment: Speci men Type: BLOOD SPECIMENOrdering Facility: [facility] Address: [address] [place] [address] Performed By: #### S TFREV, 90977-8 ####[facility] [id number] [place] [address] [place] PT panel Coag (PPP)on 2024 INR Coag (PPP) [Relative time] 1.5 {INR} High 0.9-1.3 [facility] Comment on above: Order Comment: Speci men Type: BLOOD SPECIMENOrdering Facility: [facility] Address: [address] [place] [address] Result Comment: Zulay min K Antagonist (VKA) Therapeutic Range: INR 2 to 3 (Target INR of 2.5)Note: For patients treated with VKA drugs, such as warfarin, the [place] [employer] 2012 Guideline recommends [...] al. Chest 2012, 141:7S-47SAnais YIN, et al. [facility] 2017, 70: 252-289 Performed By: #### 3 4528-0, 82393-2 ####[facility] [id number] [place] [address] [place] PT Coag (PPP) [Time] 15.4 s High 9.7-13.0 [facility] Comment on above: Order Comment: Víctor friend Type: BLOOD SPECIMENOrdering Facility: [facility] Address: [address] [place] [address] Performed By: #### 3 4528-0, 26358-6 ####[facility] [id number] [place] [address] [place] INR Coag (PPP) [Relative time] 1.5 {INR} High 0.9-1.3 [facility] Comment on above: Order Comment: Verenai ronna Type: BLOOD SPECIMENOrdering Facility: [facility] Address: [address] [place] [address] Result Comment: Zulay min K Antagonist (VKA) Therapeutic Range: INR 2 to 3 (Target INR of 2.5)Note: For patients treated with VKA drugs, such as warfarin, the [place] [employer] 2012 Guideline recommends [...] al. Chest 2012, 141:7S-47SAnais RA, et al. JAC 2017, 70: 252-289 Performed By: #### 3 4528-0 ####[facility] LABCLIA [id number] [place] [address] [place] PT Coag (PPP) [Time] 16.1 s High 9.7-13.0 [facility] Comment on above: Order Comment: Speci men Type: BLOOD SPECIMENOrdering Facility: [facility] Address: [address] [place] [address] Performed By: #### 3 4528-0 ####[facility] LABIA [id number] [place] [address] [place] Phosphate SerPl-mCncon 01-11 Phosphate [Mass/Vol] 4.3 mg/dL Normal 2.7-4.8 [facility] Comment on above: Order Comment: Speci men Type: BLOOD SPECIMENOrdering Facility: [facility] Address: [address] [place] [address] Performed By: #### 2 324-2, 2132-9, 2276-4, 44672-2, 1988-5, 17134-3, 75576-4, 2777-1 ####[facility] LABCLIA [id number] [address] [place] Procalcitonin SerPl-mCncon 0 01-11-2025 Procalcitonin [Mass/Vol] 0.22 ng/mL High <0.09 [facility] Comment on above: Order Comment: Speci men Type: BLOOD SPECIMENOrdering Facility: [facility] Address: [address] [place] [address] Result Comment: For a guided interpretation of test results, please visit the Change in Procalcitonin Calculator, [email or web address]. Performed By: #### 3 3959-8 ####[facility] LABCLIA [id number] [place] [address] [place] THERAPY NTon 01-11-2025 THERAPY NT Normal [facility] TYPE + SCREENon 01-11-2025 ABO O Normal [facility] Comment on above: Order Comment: Speci men Type: BLOOD SPECIMENOrdering Facility: [facility] Address: [address] [place] [address] Performed By: #### T SCR ####[facility] BANKCLIA [id number] [place] [id number] [place] Rh Nom (Bld) Negative Normal [facility] Comment on above: Order Comment: Speci men Type: BLOOD SPECIMENOrdering Facility: [facility] Address: [address] [place] [address] Performed By: #### T SCR ####[facility] BLOOD BANKCLIA [id number] [place] [address] [place] TYPE AND SCREEN EXPIRATION 01/14/2025 23:59 Normal [facility] Comment on above: Order Comment: Speci men Type: BLOOD SPECIMENOrdering Facility: [facility] Address: [address] [place] [address] Performed By: #### T SCR ####[facility] BLOOD BANKCLIA [id number] [place] [address] [place] Vit B12 SerPl-mCncon 025 Cobalamin (Vitamin B12) [Mass/Vol] 870 pg/mL Normal 232-1245 [facility] Comment on above: Order Comment: Speci men Type: BLOOD SPECIMENOrdering Facility: [facility] Address: [address] [place] [address] Performed By: #### 2 324-2, 2132-9, 2276-4, 36895-9, 1988-5, 39875-7, 43339-4, 2777-1 ####[facility] LABCLIA [id number] [id number] [address] [place] WHIPPLE'S PCRon 01-11-2025 Specimen source Nom (Unsp spec) Plasma Normal [facility] Comment on above: Order Comment: Speci men Type: BLOOD SPECIMENOrdering Facility: [facility] Address: [address] [place] [address] Performed By: #### B ARPCR, WHIPWB, BARTAB ####[facility] [id number] [place] [address] WHIPPLE'S PCR RESULT (WHIPWB) Not detected Normal [facility] Comment on above: Order Comment: Speci men Type: BLOOD SPECIMENOrdering Facility: [facility] Address: [address] [place] [address] Result Comment: NOT DETECTED - A negative result does not rule out thepresence of PCR inhibitors in the patient specimen orassay specific nucleic acid in concentrations below thelevel of detection by the assay.INTERPRETIVE INFORMATION: Tropheryma whipplei PCRThis test was developed and its performance characteristicsdetermined by [facility]. It has not been cleared orapproved by the [place] Food and Drug Administration. This test wasperformed in a CLIA certified laboratory and is intended forclinical purposes.Performed By: [facility] [place] [id number] Director: Jc Fine MD, PhDCLIA Number: [id number] Performed By: #### B ARPCR, WHIPWB, BARTAB ####[facility]CLIA [id number] [place] [address] XR CHEST 1V FRONTAL PORTon 0 01-11-2025 XR CHEST 1V FRONTAL PORT Normal [facility] aPTT PPPon 01-11-2025 aPTT Coag (PPP) [Time] 37.3 s High 23.0-32.4 [facility] Comment on above: Order Comment: Speci men Type: BLOOD SPECIMENOrdering Facility: [facility] Address: [address] [place] [address] Performed By: #### 3 4528-0, 51798-4 ####[facility] LABCLIA [id number] [facility] [id number] [place] [address] [facility] 30on 01-10-2025 30 The patient is Moderately Unstable - Medium risk of patient condition declining or worsening The patient's goals for the shift include rest, comfort The clinical goals for the shift include VSS, tx to [facility] Over the shift, the patient did not make progress toward the following goals. Barriers to progression include transfer to [facility]. Recommendations to address these barriers include [...] and behaviors that affect risk of falls [place] fall precautions as indicated by assessment Educate [...] conditions and prevent exacerbation or deterioration Normal [facility] 30 The patient is Moderately Unstable - Medium risk of patient condition [...] injury: Assess patient frequently for physical needs [place] fall precautions as indicated by assessment Educate patient/family on patient safety, including physical limitations Modify environment to reduce risk of injury Consider OT/PT consult to assist with strengthening/mobili ty Instruct patient to call for assistance with [...] and prevent overall improvement and discharge Normal [facility] 30 The patient is Moderately Stable - Low risk of patient condition [...] and behaviors that affect risk of falls [place] fall precautions as indicated by assessment Educate [...] conditions and prevent exacerbation or deterioration Normal [facility] BASIC METABOLIC PANELon 02-0 Anion gap [Moles/Vol] 13 mmol/L Normal 7-20 [facility] Comment on above: Performed By: #### L AB15 ####[facility] (BEAKER)[address] [place] [address] Calcium [Mass/Vol] 6.8 mg/dL Low 8.6-10.3 [facility] Comment on above: Performed By: #### L AB15 ####[facility] (BEAKER)[address] [place] [address] Chloride [Moles/Vol] 116 mmol/L High 98-107 [facility] Comment on above: Performed By: #### L AB15 ####[facility] (BEAKER)[address] [place] [address] CO2 [Moles/Vol] 15 mmol/L Low 21-31 [facility] Comment on above: Performed By: #### L AB15 ####[facility] ([facility])[address] [place] [address] Creatinine [Mass/Vol] 4.51 mg/dL High 0.60-1.20 [facility] Comment on above: Performed By: #### L AB15 ####[facility] ([facility])[address] [place] [address] GLOMERULAR FILTRATION RATE ML/MIN/1.73 SQ M.PREDICTED 9.3 mL/min/1.73m*2 Low >60.0 [facility] Comment on above: Result Comment: [facility]???s estimated glomerular filtration rate (eGFR) will [...] #### L AB15 ####[facility] ([facility])[address] [place] [address] Glucose [Mass/Vol] 77 mg/dL Normal 70-100 [facility] Comment on above: Performed By: #### L AB15 ####[facility] ([facility])[address] [place] [address] Potassium [Moles/Vol] 4.3 mmol/L Normal 3.5-5.1 [facility] Comment on above: Performed By: #### L AB15 ####[facility] (BEAKER)[address] [place] [address] Sodium [Moles/Vol] 140 mmol/L Normal 136-145 [facility] Comment on above: Performed By: #### L AB15 ####[facility] (BEAKER)[address] [place] [address] Urea nitrogen [Mass/Vol] 85 mg/dL High 7-25 [facility] Comment on above: Performed By: #### L AB15 ####[facility] (BEAKER)[address] [place] [address] UREA NITROGEN/CREATININE (MASS RATIO) IN SER/PLAS 18.8 Normal [facility] Comment on above: Performed By: #### L AB15 ####[facility] (BEAKER)[address] [place] [address] CBC WITH AUTO DIFFERENTIALon 01-10-2025 Erythrocyte distribution width (RBC) [Ratio] 15.1 % High 11.5-15.0 [facility] Comment on above: Performed By: #### L [id number] ####[facility] (BEAKER)[address] [place] [address] ERYTHROCYTE MEAN CORPUSCULAR HEMOGLOBIN CONCENTRATION (G/DL) BY AUTOMATED 32.0 g/dL Normal 32.0-35.0 [facility] Comment on above: Performed By: #### L [id number] ####[facility] (BEAKER)[address] [place] [address] Hematocrit (Bld) [Volume fraction] 30.3 % Low 36.0-48.0 [facility] Comment on above: Performed By: #### L [id number] ####[facility] (BEAKER)[address] [place] [address] Hemoglobin (Bld) [Mass/Vol] 9.7 g/dL Low 12.0-15.0 [facility] Comment on above: Performed By: #### L [id number] ####[facility] (BEAKER)[address] [place] [address] MCH (RBC) [Entitic mass] 28.7 pg Normal 27.0-33.0 [facility] Comment on above: Performed By: #### L [id number] ####[facility] ([facility])[address] [place] [address] MCV (RBC) [Entitic vol] 89.6 fL Normal 82.0-98.0 [facility] Comment on above: Performed By: #### L [id number] ####[facility] ([facility])[address] [place] [address] NRBC (PER 100 WBCS) BY AUTOMATED COUNT 0.0 % Normal 0 [facility] Comment on above: Performed By: #### L [id number] ####[facility] ([facility])[address] [place] [address] PLATELETS (10*3/UL) IN BLOOD AUTOMATED COUNT 196 10*3/uL Normal 150-400 [facility] Comment on above: Performed By: #### L [id number] ####[facility] ([facility])[address] [place] [address] RBC (Bld) [#/Vol] 3.38 10*6/uL Low 3.80-5.00 [facility] Comment on above: Performed By: #### L [id number] ####[facility] ([facility])[address] [place] [address] WBC (Bld) [#/Vol] 25.42 10*3/uL High 4.00-10.60 [facility] Comment on above: Performed By: #### L [id number] ####[facility] ([facility])[address] [place] [address] CONSULTon 01-10-2025 CONSULT Reason For Consult immunocompromised pt with leukocytosis, likely respiratory Referring Provider: hospital medicine History Of Present Illness Sylvia Herrera is a 79 y.o. female with a history of heart transplant at the [facility] in 2005 who was transferred from [facility] for worsening creatinine after admission for pneumonia [...] transportation to the transplant clinic at the [facility]: She has CKD (last creatinine I have [...] pneumonia without improvement and was transferred to [facility] for additional care. At the time of [...] day (alternates with 100mcg tablet) Past Week vpiuxt-mtveaetv-deop ase (Creon) 24,000-76,000 -120,000 unit capsule Take 4 [...] PRN heparin (porcine) 5,000 Units subcutaneous q12h COUNT INCLUDES THE [facility] 5,000 Units at 01/10/25 10 (more content not included)... Normal [facility] MANUAL DIFFERENTIALon 2024 BASOPHILS (10*3/UL) IN BLOOD BY CALCULATION 0.05 10*3/uL Normal 0.00-0.20 [facility] Comment on above: Performed By: #### L [id number] ####[facility] ([facility])[address] [place] [address] BASOPHILS/100 LEUKOCYTES IN BLOOD BY AUTOMATED COUNT 0.2 % Normal 0.0-1.0 [facility] Comment on above: Performed By: #### L [id number] ####[facility] ([facility])[address] [place] [address] EOSINOPHILS (10*3/UL) IN BLOOD BY CALCULATION 0.08 10*3/uL Normal 0.00-0.50 [facility] Comment on above: Performed By: #### L [id number] ####[facility] ([facility])[address] [place] [address] EOSINOPHILS/100 LEUKOCYTES IN BLOOD BY AUTOMATED COUNT 0.3 % Normal 0.0-6.0 [facility] Comment on above: Performed By: #### L [id number] ####[facility] ([facility])[address] [place] [address] IMMATURE GRANULOCYTES (10*3/UL) IN BLOOD BY CALCULATION 0.38 10*3/uL High 0.00-0.20 [facility] Comment on above: Performed By: #### L [id number] ####[facility] ([facility])[address] [facility] [address] IMMATURE GRANULOCYTES/100 LEUKOCYTES IN BLOOD BY AUTOMATED COUNT 1.5 % High 0.0-1.0 [facility] Comment on above: Performed By: #### L [id number] ####[facility] ([facility])[address] [place] [address] LYMPHOCYTES (10*3/UL) IN BLOOD BY CALCULATION 0.89 10*3/uL Low 1.20-4.00 [facility] Comment on above: Performed By: #### L [id number] ####[facility] ([facility])[address] [place] [address] LYMPHOCYTES/100 LEUKOCYTES IN BLOOD BY AUTOMATED COUNT 3.5 % Low 20.0-45.0 [facility] Comment on above: Performed By: #### L [id number] ####[facility] ([facility])[address] [place] [address] MONOCYTES (10*3/UL) IN BLOOD BY CALCUATION 1.68 10*3/uL High 0.10-1.00 [facility] Comment on above: Performed By: #### L [id number] ####[facility] ([facility])[address] [place] [address] MONOCYTES/100 LEUKOCYTES IN BLOOD BY AUTOMATED COUNT 6.6 % Normal 5.0-12.0 [facility] Comment on above: Performed By: #### L [id number] ####[facility] ([facility])[address] [place] [address] NEUTROPHILS (10*3/UL) IN BLOOD BY CALCULATION 22.3 10*3/uL High 1.6-7.6 [facility] Comment on above: Performed By: #### L [id number] ####[facility] ([facility])[address] [place] [address] NEUTROPHILS/100 LEUKOCYTES IN BLOOD BY AUTOMATED COUNT 87.9 % High 40.0-72.0 [facility] Comment on above: Performed By: #### L [id number] ####[facility] ([facility])[address] [place] [address] TACROLIMUS LEVELon 5 Tacrolimus (Bld) [Mass/Vol] 9.8 ng/mL Normal 5.0-20.0 [facility] Comment on above: Result Comment: The SUTTON RATE CLERK Tacrolimus assay is a delayed one-step immunoassay for the quantitative determination of tacrolimus in human whole blood using the chemiluminescent microparticle immunoassay (CMIA) technology with flexible assay protocols, referred to as Chemiflex. Performed By: #### L [id number] #### [facility] ([facility]AKER) [address] [place] [address] 1,5-DKUD-Y-GLUCANon 01-09-20 25 (1,3)-WBNC-D-IMLAOK <31 Normal [facility] Comment on above: Performed By: #### L [id number] ####[facility] ([facility])[address] [place] [address] (1,3)-TJVZ-M-RMMTMV INTERPRETATION Negative Normal Negative [facility] Comment on above: Result Comment: INTE RPRETIVE INFORMATION: (1,3)-zhmd-T-uxooxx (Fungitell) Less than 31 pg/mL ................... Negative 31-59 pg/mL .......................... Negative 60-79 pg/mL .......................... Indeterminate Greater than or equal to 80 pg/mL .... Positive The Fungitell test is indicated for presumptive diagnosis of fungal infection and should be used in conjunction with other diagnostic procedures. This test does not detect certain fungal species such as Cryptococcus, which produce very low levels of (1,3)-gigg-U-dygfow. This test will not detect the zygomycetes, such as Absidia, Mucor, and Rhizopus, which are not known to produce (1,3)-vtna-L-tdxqrs. In addition, the yeast phase of Blastomyces dermatitidis produces little (1,3)-lpdj-W-ugiilw and may not be detected by the assay. Performed By: [facility] [address] [place] [address] Tenant Relations Coordinator: Jc Fine MD, PhD CLIA Number: [id number] Performed By: #### L [id number] ####[facility] [place] [address] 30on 01-09-2025 30 The patient is Moderately Unstable - Medium risk of patient condition [...] injury: Assess patient frequently for physical needs [place]io fall precautions as indicated by assessment Modify environment to reduce risk of injury Consider OT/PT consult to assist with strengthening/mobili ty Educate patient/family on patient safety, including physical [...] and prevent overall improvement and discharge Normal [facility] 30 The patient is Moderately Stable - Low risk of patient condition [...] and behaviors that affect risk of falls [place] fall precautions as indicated by assessment Educate [...] conditions and prevent exacerbation or deterioration Normal [facility] ASPERGILLUS GALACTOMANNAN AN TIGENon 01-09-2025 ASPERGILLUS GALACTOMANNAN ANTIGEN, SERUM Negative Normal Negative [facility] Comment on above: Result Comment: INTE [...] patients, serial sampling is recommended. Performed By: [facility] [address] [place] [address] Tenant Relations Coordinator: Jc Fine MD, PhD CLIA Number: [id number] Performed By: #### L [id number] #### [facility] ([facility]) [address] [place] [address] ASPERGILLUS GALACTOMANNAN INDEX 0.03 [facility] Comment on above: Performed By: #### L [id number] #### [facility] ([facility]) [address] [place] [address] BLOOD CULTUREon 01-09-2025 Bacteria identified Cx Nom (Bld) No growth at 5 days [facility] Comment on above: Performed By: #### L [id number] ####[facility] ([facility])[address] [place] [address] Order Comment: From a different site than #1. CBC WITH AUTO DIFFERENTIALon 01-09-2025 Erythrocyte distribution width (RBC) [Ratio] 15.4 % High 11.5-15.0 [facility] Comment on above: Performed By: #### L [id number] ####[facility] ([facility])[address] [place] [address] ERYTHROCYTE MEAN CORPUSCULAR HEMOGLOBIN CONCENTRATION (G/DL) BY AUTOMATED 30.7 g/dL Low 32.0-35.0 [facility] Comment on above: Performed By: #### L [id number] ####[facility] ([facility])[address] [place] [address] Hematocrit (Bld) [Volume fraction] 30.9 % Low 36.0-48.0 [facility] Comment on above: Performed By: #### L [id number] ####[facility] ([facility])[address] [place] [address] Hemoglobin (Bld) [Mass/Vol] 9.5 g/dL Low 12.0-15.0 [facility] Comment on above: Performed By: #### L [id number] ####[facility] ([facility]AKER)[address] [facility] [place] [address] MCH (RBC) [Entitic mass] 29.1 pg Normal 27.0-33.0 [facility] Comment on above: Performed By: #### L [id number] ####[facility] ([facility])[address] [place] [address] MCV (RBC) [Entitic vol] 94.8 fL Normal 82.0-98.0 [facility] Comment on above: Performed By: #### L [id number] ####[facility] ([facility])[address] [place] [address] NRBC (PER 100 WBCS) BY AUTOMATED COUNT 0.0 % Normal 0 [facility] Comment on above: Performed By: #### L [id number] ####[facility] ([facility])[address] [place] [address] PLATELETS (10*3/UL) IN BLOOD AUTOMATED COUNT 207 10*3/uL Normal 150-400 [facility] Comment on above: Performed By: #### L [id number] ####[facility] ([facility])[address] [place] [address] RBC (Bld) [#/Vol] 3.26 10*6/uL Low 3.80-5.00 [facility] Comment on above: Performed By: #### L [id number] ####[facility] ([facility])[address] [place] [address] WBC (Bld) [#/Vol] 17.00 10*3/uL High 4.00-10.60 [facility] Comment on above: Performed By: #### L [id number] ####[facility] ([facility])[address] [place] [address] CLOSTRIDIOIDES DIFFICILE DNA AMPLIFICATIONon 01-09-2025 CLOSTRIDIOIDES DIFFICILE (TOXIN A/B) Negative Normal Negative [facility] Comment on above: Order Comment: Testi ng methodology is an in vitro diagnostic test for the direct, qualitative detection of the Clostridioides difficile Toxin A gene (tcdA) in unformed stool specimens of patients suspected of having Clostridioides difficile-infection (CDI). The Dunbar C. difficile Assay is intended for use as an aid in diagnosis of CDI. The assay utilizes helicase-dependent amplification (HDA) for the amplification of a highly conserved fragment of the Toxin A gene sequence. Performed By: #### L [id number] ####[facility] ([facility]ER)[address] [place] [address] COMPREHENSIVE METABOLIC PANE Adan 01-09-2025 Albumin [Mass/Vol] 2.9 g/dL Low 3.5-5.7 [facility] Comment on above: Performed By: #### L [id number] #### [facility] THER[facility] [address] [place] [address] [place] ALP [Catalytic activity/Vol] 160 U/L High 34-104 [facility] Comment on above: Performed By: #### L [id number] #### [facility]ERAP[facility] [address] [place] [address] [place] ALT [Catalytic activity/Vol] 26 U/L Normal 7-52 [facility] Comment on above: Performed By: #### L [id number] #### [facility] THERAP[facility] [address] [place] [address] [place] Anion gap [Moles/Vol] 13 mmol/L Normal 7-20 [facility] Comment on above: Performed By: #### L [id number] #### [facility] THERAP[facility] [address] [place] [address] [place] AST [Catalytic activity/Vol] 20 U/L Normal 13-39 [facility] Comment on above: Performed By: #### L [id number] #### [facility]AP[facility] [address] [place] [address] [place] Bilirubin [Mass/Vol] 0.3 mg/dL Normal 0.3-1.0 [facility] Comment on above: Performed By: #### L [id number] #### [facility]ERAP[facility] [address] [place] [address] [place] Calcium [Mass/Vol] 7.4 mg/dL Low 8.6-10.3 [facility] Comment on above: Performed By: #### L [id number] #### [facility] THERAP[facility] [address] [place] [address] [place] Chloride [Moles/Vol] 119 mmol/L High 98-107 [facility] Comment on above: Performed By: #### L [id number] #### [facility] THERAP[facility] [address] [place] [address] [place] CO2 [Moles/Vol] 10 mmol/L Invalid Interpretation Code [facility] Comment on above: Performed By: #### L [id number] #### [facility] RES[facility]IR[facility]ORY THERAPY [address] [place] [address] [facility] Creatinine [Mass/Vol] 4.40 mg/dL High 0.60-1.20 [facility] Comment on above: Performed By: #### L [id number] #### [facility]IR[facility] THERAPY [address] [place] [address] [place] GLOMERULAR FILTRATION RATE ML/MIN/1.73 SQ M.PREDICTED 9.6 mL/min/1.73m*2 Low >60.0 [facility] Comment on above: Result Comment: The [facility]???s estimated glomerular filtration rate (eGFR) will [...] group of individuals. Performed By: #### L [id number] #### [facility]IR[facility] THERAPY [address] [place] [address] [place] Glucose [Mass/Vol] 105 mg/dL High 70-100 [facility] Comment on above: Performed By: #### L [id number] #### [facility] THERAP[facility] [address] [place] [address] [place] Potassium [Moles/Vol] 4.8 mmol/L Normal 3.5-5.1 [facility] Comment on above: Performed By: #### L [id number] #### [facility] RES[facility]IR[facility] THERAPY [address] [place] [address] [facility] Protein [Mass/Vol] 4.7 g/dL Low 6.0-8.3 [facility] Comment on above: Performed By: #### L [id number] #### [facility]ERAP[facility] [address] [place] [address] [facility] Sodium [Moles/Vol] 137 mmol/L Normal 136-145 [facility] Comment on above: Performed By: #### L [id number] #### [facility] RES[facility]IR[facility] THERAPY [address] [place] [address] [facility] Urea nitrogen [Mass/Vol] 83 mg/dL High 7-25 [facility] Comment on above: Performed By: #### L [id number] #### [facility] RESPIR[facility]ORY THERAPY [address] [place] [address] [facility] UREA NITROGEN/CREATININE (MASS RATIO) IN SER/PLAS 18.9 Normal [facility] Comment on above: Performed By: #### L [id number] #### [facility] RES[facility]IR[facility]ORY THERAPY [address] [place] [address] [facility] CONSULTon 01-09-2025 CONSULT Inpatient consult to Neurology Consult performed by: Tram Post MD Consult ordered by: Jerad Jasmine MD History Of Present Illness Sylvia Herrera [...] day (alternates with 100mcg tablet) Past Week djlnhx-bhkjwtls-otty ase (Creon) 24,000-76,000 -120,000 unit capsule Take 4 [...] (CMS/HCC) Active Problems: Status post heart transplantation (CMS/[facility]) Gastroenteritis Pneumonia of left lower lobe due [...] DREW management per primary Will follow Tram Post MD [facility] CONSULT Attestation signed by Manfred Kramer MD at 01/10/2025 7:35 PM I personally saw this patient on the day of the encounter with the fellow/resident, and performed the bautista portion(s) of the service and participated in the management and confirm the resident's documen-tation. Please note there may be an additional personal documentation from me. Manfred Kramer MD Faculty, Division of Nephrology, Department of Medicine [facility]. Nephrology Consult Note Patient : Sylvia Herrera; 79 y.o. Location: [id number]/3184-01 Attending: Jerad Jasmine MD Admit Date: 01/08/2025 Hospital Day: 1 Reason for Consult: DREW on CKD3B History of Present Illness: Sylvia Herrera is an 79 y.o. female who came from home with past medical history of nonischemic cardiomyopathy, s/p heart transplant in 2005 at [facility], CKD, 3B, anxiety, exocrine pancreatic sufficiency, hypothyroidism, hypertension and hyperlipidemia presented to [facility] as a direct transfer from [facility]. Patient initially presented there on 01/05/25 because of generalized weakness, nausea, vomiting and diarrhea over the last week. Patient also had decreased oral intake and had productive cough. 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 Daly was contacted and agreed for the patient to be transferred to [facility] for nephrology consult. On my assessment, patient [...] 94.8 01/09/20 (more content not included)... Normal [facility] CONSULT Attestation signed by Harjinder Reynaga MD at 01/10/2025 6:54 PM I evaluated, discussed and reviewed the patient on rounds with the esthetician and manager medical spa. I agree with their assessment and plan as documented in the patient's progress note from today Cardiology Consult Note Reason for Consult: history of heart transplant HPI: Sylvia Herrera is a 79 y.o. female with a past medical history significant for nonischemic cardiomyopathy s/p LVAD placement followed by cardiac transplant in 2005 at [facility], required mediastinal re-exploration post transplant x 2 for bleeding, hypertension, chronic kidney disease, hypothyroidism, and pancreatic exocrine insufficiency. She does not have history of rejection. Last cath in 2016 negative and stress test in 2018 negative. Off note, patient was seen by [place] [facility]ology outpatient in September 2024 for shortness of breath. She was advised to get BNP and echo which were not performed. Patient presented to the [facility] with generalized weakness, productive cough, nausea, vomiting, diarrhea for past 1 week. She was found to have DREW and leukocytosis, was started on IV fluids and antibiotics. Her creatinine improved initially from 6 to 4 however worsened again. Reported echo showed normal EF. Cardiology was contacted overnight who recommended transfer to [facility] for further workup and nephrology consult. Troponin [...] every other day (alternates with 100mcg tablet) eislhj-qwisztpu-uhpe ase (Creon) 24,000-76,000 -120,000 unit capsule 4 capsules, [...] day (alternates with 100mcg tablet) Past Week dfokoz-lhjcnqjk-qjgq ase (Creon) 24,000-76,000 -120,000 unit capsule Take 4 [...] the morning. (more content not included)... Normal [facility] CT HEAD WO IV CONTRASTon CT [...] signed: Ortiz Adams. 9 Invalid Interpretation Code [facility] LACTIC ACID WITH 4 HOUR REFL EXon 01-09-2025 LACTATE (MMOL/L) IN SER/PLAS 0.6 mmol/L Normal 0.5-2.2 [facility] Comment on above: Performed By: #### L [id number] #### [facility] ([facility]AKER) [address] [place] [address] LACTATE (MMOL/L) IN SER/PLAS 0.7 mmol/L Normal 0.5-2.2 [facility] Comment on above: Performed By: #### L [id number] #### [facility] ([facility]AKER) [address] [place] [address] MANUAL DIFFERENTIALon 2024 ANISOCYTOSIS PRESENCE IN BLOOD BY LIGHT MICROSCOPY Moderate Normal [facility] Comment on above: Performed By: #### L [id number] ####[facility] ([facility]AKER)[address] [place] [address] BASOPHILS (10*3/UL) IN BLOOD BY CALCULATION 0.05 10*3/uL Normal 0.00-0.20 [facility] Comment on above: Performed By: #### L [id number] ####[facility] ([facility])[address] [place] [address] BASOPHILS/100 LEUKOCYTES IN BLOOD BY AUTOMATED COUNT 0.3 % Normal 0.0-1.0 [facility] Comment on above: Performed By: #### L [id number] ####[facility] ([facility])[address] [place] [address] EOSINOPHILS (10*3/UL) IN BLOOD BY CALCULATION 0.09 10*3/uL Normal 0.00-0.50 [facility] Comment on above: Performed By: #### L [id number] ####[facility] ([facility])[address] [place] [address] EOSINOPHILS/100 LEUKOCYTES IN BLOOD BY AUTOMATED COUNT 0.5 % Normal 0.0-6.0 [facility] Comment on above: Performed By: #### L [id number] ####[facility] ([facility])[address] [place] [address] IMMATURE GRANULOCYTES (10*3/UL) IN BLOOD BY CALCULATION 0.51 10*3/uL High 0.00-0.20 [facility] Comment on above: Performed By: #### L [id number] ####[facility] ([facility])[address] [place] [address] IMMATURE GRANULOCYTES/100 LEUKOCYTES IN BLOOD BY AUTOMATED COUNT 3.0 % High 0.0-1.0 [facility] Comment on above: Performed By: #### L [id number] ####[facility] ([facility])[address] [place] [address] LYMPHOCYTES (10*3/UL) IN BLOOD BY CALCULATION 0.83 10*3/uL Low 1.20-4.00 [facility] Comment on above: Performed By: #### L [id number] ####[facility] (BEAKER)[address] [place] [address] LYMPHOCYTES/100 LEUKOCYTES IN BLOOD BY AUTOMATED COUNT 4.9 % Low 20.0-45.0 [facility] Comment on above: Performed By: #### L [id number] ####[facility] ([facility])[address] [place] [address] MONOCYTES (10*3/UL) IN BLOOD BY CALCUATION 1.07 10*3/uL High 0.10-1.00 [facility] Comment on above: Performed By: #### L [id number] ####[facility] ([facility])[address] [place] [address] MONOCYTES/100 LEUKOCYTES IN BLOOD BY AUTOMATED COUNT 6.3 % Normal 5.0-12.0 [facility] Comment on above: Performed By: #### L [id number] ####[facility] ([facility])[address] [place] [address] NEUTROPHILS (10*3/UL) IN BLOOD BY CALCULATION 14.5 10*3/uL High 1.6-7.6 [facility] Comment on above: Performed By: #### L [id number] ####[facility] ([facility])[address] [place] [address] NEUTROPHILS/100 LEUKOCYTES IN BLOOD BY AUTOMATED COUNT 85.0 % High 40.0-72.0 [facility] Comment on above: Performed By: #### L [id number] ####[facility] ([facility])[address] [place] [address] POIKILOCYTOSIS (PRESENCE) IN BLOOD BY LIGHT MICROSCOPY Slight Normal [facility] Comment on above: Performed By: #### L [id number] ####[facility] ([facility])[address] [place] [address] POLYCHROMASIA IN BLOOD BY LIGHT MICROSCOPY Slight Normal [facility] Comment on above: Performed By: #### L [id number] ####[facility] LAB ([facility])[address] [place] [address] MR BRAIN WO CONTRASTon 01-09 MR BRAIN [...] Luis Wilkins MD. 8 Invalid Interpretation Code [facility] MR HEAD ANGIO WO IV CONTRAST [...] Luis Wilkins MD. 8 Invalid Interpretation Code [facility] POCT GLUCOSE METER UNSOLICIT ED RESULTSon 01-09-2025 Glucose [Mass/Vol] 101 mg/dL Normal 70-105 [facility] Comment on above: Order Comment: Waive d Testing in the ED is performed under the ED CLIA certificate #[id number]. Result Comment: epro kt Performed By: #### L [id number] #### [facility] (BEAKER) [address] [place] [address] TSH3 REFLEX TO FT4on 025 THYROTROPIN (MIU/L) IN SER/PLAS BY DETECTION LIMIT <= 0.05 MIU/L 0.86 mIU/L Normal 0.34-5.60 [facility] Comment on above: Performed By: #### L [id number] ####[facility] ([facility])[address] [place] [address] VENOUS BLOOD GAS WITH IONIZE D CALCIUMon 01-09-2025 Base excess Calc (BldV) [Moles/Vol] -17.88613 mmol/L Normal [facility] Comment on above: Performed By: #### L [id number] #### [facility] (BEAKER) [address] [place] [address] CALCIUM IONIZED (MMOL/L) IN BLOOD 1.25 mmol/L Normal 1.15-1.33 [facility] Comment on above: Performed By: #### L [id number] #### [facility] ([facility]) [address] [place] [address] CO2 (BldV) [Partial pressure] 25 mm[Hg] Low 40-50 [facility] Comment on above: Performed By: #### L [id number] #### [facility] (BEAKER) [address] [place] [address] HCO3 (Bld) [Moles/Vol] 9.3 mmol/L Normal [facility] Comment on above: Performed By: #### L [id number] #### [facility] (BEAKER) [address] [place] [address] Oxygen (BldV) [Partial pressure] 69 mm[Hg] High 35-45 [facility] Comment on above: Performed By: #### L [id number] #### [facility] ([facility]) [address] [place] [address] OXYGEN SATURATION (%) IN VENOUS BLOOD 96.1 % High 65.0-75.0 [facility] Comment on above: Performed By: #### L [id number] #### [facility] ([facility]) [address] [place] [address] PH OF VENOUS BLOOD 7.18 Invalid Interpretation Code 7.31-7.41 [facility] Comment on above: Performed By: #### L [id number] #### [facility] ([facility]) [address] [place] [address] APTTon 01-08-2025 ACTIVATED PARTIAL THROMBOPLASTIN TIME IN PPP BY COAGULATION ASSAY 34.0 Seconds Normal 25.0-35.0 [facility] Comment on above: Result Comment: Clin ical significance of the APTT is questionable in the presence of heparin. Performed By: #### L [id number] #### [facility] ([facility]) [address] [place] [address] B-TYPE NATRIURETIC PEPTIDEon 01-08-2025 Natriuretic peptide B (Bld) [Mass/Vol] 563 pg/mL High 0-100 [facility] Comment on above: Performed By: #### L [id number] #### [facility] ([facility]) [address] [place] [address] BASIC METABOLIC PANELon Anion gap [Moles/Vol] 13 mmol/L Normal 7-20 [facility] Comment on above: Performed By: #### L [id number] #### [facility] ([facility]) [address] [facility] [address] Calcium [Mass/Vol] 7.4 mg/dL Low 8.6-10.3 [facility] Comment on above: Performed By: #### L [id number] #### [facility] ([facility]) [address] [place] [address] Chloride [Moles/Vol] 118 mmol/L High 98-107 [facility] Comment on above: Performed By: #### L [id number] #### [facility] ([facility]) [address] [place] [address] CO2 [Moles/Vol] 10 mmol/L Invalid Interpretation Code [facility] Comment on above: Performed By: #### L [id number] #### [facility] ([facility]) [address] [place] [address] Creatinine [Mass/Vol] 4.43 mg/dL High 0.60-1.20 [facility] Comment on above: Performed By: #### L [id number] #### [facility] ([facility]) [address] [place] [address] GLOMERULAR FILTRATION RATE ML/MIN/1.73 SQ M.PREDICTED 9.5 mL/min/1.73m*2 Low >60.0 [facility] Comment on above: Result Comment: [facility]???s estimated glomerular filtration rate (eGFR) will [...] L [id number] #### [facility] ([facility]) [address] [place] [address] Glucose [Mass/Vol] 135 mg/dL High 70-100 [facility] Comment on above: Performed By: #### L [id number] #### [facility] ([facility]) [address] [place] [address] Potassium [Moles/Vol] 5.1 mmol/L Normal 3.5-5.1 [facility] Comment on above: Performed By: #### L [id number] #### [facility] ([facility]) [address] [place] [address] Sodium [Moles/Vol] 136 mmol/L Normal 136-145 [facility] Comment on above: Performed By: #### L [id number] #### [facility] ([facility]) [address] [place] [address] Urea nitrogen [Mass/Vol] 83 mg/dL High 7-25 [facility] Comment on above: Performed By: #### L [id number] #### [facility] ([facility]) [address] [place] [address] UREA NITROGEN/CREATININE (MASS RATIO) IN SER/PLAS 18.7 Normal [facility] Comment on above: Performed By: #### L [id number] #### [facility] ([facility]) [address] [place] [address] CBC WITH AUTO DIFFERENTIALon 01-08-2025 Basophils (Bld) [#/Vol] 0.03 10*3/uL Normal 0.00-0.20 [facility] Comment on above: Performed By: #### L [id number] #### [facility] ([facility]) [address] [place] [address] Basophils/100 WBC (Bld) 0.2 % Normal 0.0-1.0 [facility] Comment on above: Performed By: #### L [id number] #### [facility] ([facility]) [address] [place] [address] Eosinophils (Bld) [#/Vol] 0.07 10*3/uL Normal 0.00-0.50 [facility] Comment on above: Performed By: #### L [id number] #### [facility] ([facility]) [address] [place] [address] Eosinophils/100 WBC (Bld) 0.5 % Normal 0.0-6.0 [facility] Comment on above: Performed By: #### L [id number] #### [facility] ([facility]) [address] [place] [address] Erythrocyte distribution width (RBC) [Ratio] 15.3 % High 11.5-15.0 [facility] Comment on above: Performed By: #### L [id number] #### [facility] ([facility]AKER) [address] [place] [address] ERYTHROCYTE MEAN CORPUSCULAR HEMOGLOBIN CONCENTRATION (G/DL) BY AUTOMATED 31.9 g/dL Low 32.0-35.0 [facility] Comment on above: Performed By: #### L [id number] #### [facility] ([facility]) [address] [place] [address] Hematocrit (Bld) [Volume fraction] 30.4 % Low 36.0-48.0 [facility] Comment on above: Performed By: #### L [id number] #### [facility] (BEAKER) [address] [place] [address] Hemoglobin (Bld) [Mass/Vol] 9.7 g/dL Low 12.0-15.0 [facility] Comment on above: Performed By: #### L [id number] #### [facility] (BE[facility]ER) [address] [place] [address] Immature granulocytes (Bld) [#/Vol] 0.48 10*3/uL High 0.00-0.20 [facility] Comment on above: Performed By: #### L [id number] #### [facility] ([facility]ER) [address] [place] [address] Immature granulocytes/100 WBC (Bld) 3.2 % High 0.0-1.0 [facility] Comment on above: Performed By: #### L [id number] #### [facility] (BE[facility]ER) [address] [place] [address] Lymphocytes (Bld) [#/Vol] 0.59 10*3/uL Low 1.20-4.00 [facility] Comment on above: Performed By: #### L [id number] #### [facility] (BEAKER) [address] [place] [address] Lymphocytes/100 WBC (Bld) 3.9 % Low 20.0-45.0 [facility] Comment on above: Performed By: #### L [id number] #### [facility] ([facility]) [address] [place] [address] MCH (RBC) [Entitic mass] 29.3 pg Normal 27.0-33.0 [facility] Comment on above: Performed By: #### L [id number] #### [facility] ([facility]) [address] [place] [address] MCV (RBC) [Entitic vol] 91.8 fL Normal 82.0-98.0 [facility] Comment on above: Performed By: #### L [id number] #### [facility] ([facility]) [address] [place] [address] Monocytes (Bld) [#/Vol] 0.66 10*3/uL Normal 0.10-1.00 [facility] Comment on above: Performed By: #### L [id number] #### [facility] ([facility]) [address] [place] [address] Monocytes/100 WBC (Bld) 4.3 % Low 5.0-12.0 [facility] Comment on above: Performed By: #### L [id number] #### [facility] ([facility]) [address] [place] [address] Neutrophils (Bld) [#/Vol] 13.40 10*3/uL High 1.60-7.60 [facility] Comment on above: Performed By: #### L [id number] #### [facility] ([facility]) [address] [place] [address] Neutrophils/100 WBC (Bld) 87.9 % High 40.0-72.0 [facility] Comment on above: Performed By: #### L [id number] #### [facility] ([facility]) [address] [place] [address] NRBC (PER 100 WBCS) BY AUTOMATED COUNT 0.0 % Normal 0 [facility] Comment on above: Performed By: #### L [id number] #### [facility] ([facility]) [address] [place] [address] PLATELETS (10*3/UL) IN BLOOD AUTOMATED COUNT 197 10*3/uL Normal 150-400 [facility] Comment on above: Performed By: #### L [id number] #### [facility] ([facility]) [address] [place] [address] RBC (Bld) [#/Vol] 3.31 10*6/uL Low 3.80-5.00 [facility] Comment on above: Performed By: #### L [id number] #### [facility] ([facility]) [address] [place] [address] WBC (Bld) [#/Vol] 15.23 10*3/uL High 4.00-10.60 [facility] Comment on above: Performed By: #### L [id number] #### [facility] ([facility]) [address] [place] [address] HEPATIC FUNCTION PANELon Albumin [Mass/Vol] 2.9 g/dL Low 3.5-5.7 [facility] Comment on above: Performed By: #### L [id number] #### [facility] ([facility]) [address] [place] [address] ALP [Catalytic activity/Vol] 168 U/L High 34-104 [facility] Comment on above: Performed By: #### L [id number] #### [facility] ([facility]) [address] [place] [address] ALT [Catalytic activity/Vol] 26 U/L Normal 7-52 [facility] Comment on above: Performed By: #### L [id number] #### [facility] ([facility]) [address] [place] [address] AST [Catalytic activity/Vol] 20 U/L Normal 13-39 [facility] Comment on above: Performed By: #### L [id number] #### [facility] ([facility]) [address] [place] [address] Bilirubin [Mass/Vol] 0.3 mg/dL Normal 0.3-1.0 [facility] Comment on above: Performed By: #### L [id number] #### [facility] ([facility]) [address] [place] [address] Magnesium [Mass/Vol] 0.1 mg/dL Normal 0-0.2 [facility] Comment on above: Performed By: #### L [id number] #### [facility] ([facility]) [address] [place] [address] Protein [Mass/Vol] 4.8 g/dL Low 6.0-8.3 [facility] Comment on above: Performed By: #### L [id number] #### [facility] ([facility]) [address] [place] [address] MAGNESIUMon 01-08-2025 Magnesium [Mass/Vol] 1.9 mg/dL Normal 1.9-2.7 [facility] Comment on above: Performed By: #### L [id number] #### [facility] ([facility]) [address] [place] [address] PHOSPHORUSon 01-08-2025 Magnesium [Mass/Vol] 4.9 mg/dL Normal 2.5-5.0 [facility] Comment on above: Performed By: #### L [id number] #### [facility] ([facility]) [address] [place] [address] PROTIME-INRon 01-08-2025 INR IN PPP BY COAGULATION ASSAY 1.44 High 0.90-1.10 [facility] Comment on above: Result Comment: ACCC [...] RANGE. CHEST 1995;108:[id number]. Performed By: #### L [id number] #### [facility] ([facility]) [address] [place] [address] PROTHROMBIN TIME (PT) IN PPP BY COAGULATION ASSAY 17.4 Seconds High 12.3-14.8 [facility] Comment on above: Performed By: #### L [id number] #### [facility] ([facility]) [address] [place] [address] TROPONIN Ion 01-08-2025 Troponin I.cardiac [Mass/Vol] 0.01 ng/mL Normal 0.00-0.04 [facility] Comment on above: Performed By: #### L [id number] #### [facility] ([facility]) [address] [place] [address] VENOUS BLOOD GAS WITH IONIZE D CALCIUMon 01-08-2025 Base excess Calc (BldV) [Moles/Vol] -18.03407 mmol/L Normal [facility] Comment on above: Performed By: #### L [id number] #### [facility] [address] [place] [address] [place] CALCIUM IONIZED (MMOL/L) IN BLOOD 1.28 mmol/L Normal 1.15-1.33 [facility] Comment on above: Performed By: #### L [id number] #### [facility] [address] [place] [address] [place] CO2 (BldV) [Partial pressure] 28 mm[Hg] Low 40-50 [facility] Comment on above: Performed By: #### L [id number] #### [facility] [address] [place] [address] [facility] HCO3 (Bld) [Moles/Vol] 9.1 mmol/L Normal [facility] Comment on above: Performed By: #### L [id number] #### [facility] [address] [place] [address] [facility] Oxygen (BldV) [Partial pressure] 53 mm[Hg] High 35-45 [facility] Comment on above: Performed By: #### L [id number] #### [facility] [address] [place] [address] [facility] OXYGEN SATURATION (%) IN VENOUS BLOOD 85.0 % High 65.0-75.0 [facility] Comment on above: Performed By: #### L [id number] #### [facility] [address] [place] [address] [facility] PH OF VENOUS BLOOD 7.12 Invalid Interpretation Code 7.31-7.41 [facility] Comment on above: Performed By: #### L [id number] #### [facility] [address] [place] [address] [facility] 36on 10-01-2024 36 Regarding echo result from 09/25/2024: MD Kaela Smith MA Her [...] Dr. Daly on 10/26/2024. Patient verbalized understanding. [facility] Office Visiton 09-14-2024 Follow-up visit [id number] Sylvia Herrera 1945 F Date Provider Department Center 09/14/2024 Kirk-ANISHA DALY [facility] Family History Family history unknown: Yes Level of Service:60264 [place] OFFICE/OUTPATIENT ESTABLISHED MOD MDM 30 MIN [facility] 36on 07-22-2024 36 Patient made aware. I sent her tacrolimus order in the mail for her to have done at [facility] 1 week prior to seeing Dr. Daly for follow up on 09/14/2024. She verbalized understanding. [facility] 36on 07-21-2024 36 Regarding tacrolimus level drawn on 07/07/2024: MD Kaela Smith MA Did she have the echo? Her tacrolimus level is slightly high. I want a repeat in 2 months. *Dr. Daly, her echo was performed on 07/13/2024 and is scanned into [employer]. Will you review this and then I will call Sylvia. Thanks. [facility] Office Visiton 07-01-2024 Follow-up visit [id number] Sylvia Herrera 1945 F Date Provider Department Center 07/01/2024 ANISHA JACOBS [facility] Family History Family history unknown: Yes Level of Service:85163 [place] OFFICE/OUTPATIENT ESTABLISHED MOD [facility] 30 MIN [facility] Activated partial thrombopla stin time (aPTT) in platelet poor plasma by coagulation aOrdered By: NON STAFF on 06-18-2024 aPTT Coag (PPP) [Time] 31.8 s 25.1-36.5 [facility] Comment on above: A hematocrit value g reater than 55% may lead to inaccurate results in coagulation testing. Patients having hematocrit values >55% require a special collection tube for coagulation studies. Please contact the laboratory at [phone] for redraw instructions. INR in Platelet poor plasma by Coagulation assayOrdered By: NON STAFF on 06-18-2024 INR Coag (PPP) [Relative time] 1.3 {INR} [facility] Comment on above: INR Therapeutic Rang [...] Performed By: #### P TT, PT #### [address] [address] [facility] Partial Thromboplastin Timeo n 06-18-2024 aPTT Coag (Bld) [Time] 31.8 s Normal 25.1-36.5 [facility] Comment on above: Result Comment: A he matocrit value greater than 55% may lead to inaccurate results in coagulation testing. Patients having hematocrit values >55% require a special collection tube for coagulation studies. Please contact the laboratory at [phone] for redraw instructions. PERFORMED BY: [place] [address] PATHOLOGIST PHOTOTYPESETTING EQUIPMENT MONITOR ANDREIA ARRINGTON M.D. Performed By: #### P TT, PT #### [address] [address] [facility] Prothrombin time (PT)Ordered By: NON STAFF on 06-18-2024 PT Coag (PPP) [Time] 14.4 s High 9.0-12.9 [facility] Comment on above: A hematocrit value g reater than 55% may lead to inaccurate results in coagulation testing. Patients having hematocrit values >55% require a special collection tube for coagulation studies. Please contact the laboratory at [phone] for redraw instructions. Result Comment: A he matocrit value greater than 55% may lead to inaccurate results in coagulation testing. Patients having hematocrit values >55% require a special collection tube for coagulation studies. Please contact the laboratory at [phone] for redraw instructions. Performed By: #### P TT, PT #### [address] [address] [facility] CHEMISTRYOrdered By: [employer] [place] [employer] on 05-08-2023 Anion gap [Moles/Vol] 11 mmol/L Normal 6 - 16 mEq/L FT Remisol Calcium [Mass/Vol] 8.6 mg/dL Low 8.9 - 11.1 mg/dL FT Remisol Chloride [Moles/Vol] 99 mmol/L Low 101 - 111 mmol/ L FT Remisol CO2 [Moles/Vol] 25 mmol/L Normal 21 - 31 mmol/L FT Rem[facility] Creatinine [Mass/Vol] 1.3 mg/dL Normal 0.5 - 1.3 mg/dL FT Remisol GFR/1.73 sq M.predicted among non-blacks MDRD (S/P/Bld) [Vol rate/Area] 42 mL/min/1.73 m2 Low >=59mL/min/1.73 m2 [facility] Chem S Glucose [...] 9.70 pg/mL Low 10.10 - 27.10 pg/mL FT Remisol CHEMISTRYOrdered By: SYSTEM SYSTEM on 04-07-2023 Anion gap [Moles/Vol] 11 mmol/L Normal 6 - 16 mEq/L FT Remisol Calcium [Mass/Vol] 8.6 mg/dL Low 8.9 - 11.1 mg/dL FT Remisol Chloride [Moles/Vol] 96 mmol/L Low 101 - 111 mmol/ L FT Remisol CO2 [Moles/Vol] 24 mmol/L Normal 21 - 31 mmol/L FT Remisol Creatinine [Mass/Vol] 1.5 mg/dL High 0.5 - 1.3 mg/dL FT Remisol GFR/1.73 sq M.predicted among non-blacks MDRD (S/P/Bld) [Vol rate/Area] 35 mL/min/1.73 m2 Low >=59mL/min/1.73 m2 [facility] Chem S Glucose [...] ratio] 27 mg/mg High 10 - 20 FT Remisol COAGULATIONOrdered By: Florence Mancilla on 04-07-2023 aPTT Coag (PPP) [Time] 27.1 s Normal 25.1 - 36.5 second(s) FT Auto Coag INR Coag (PPP) [Relative time] 1.2 {INR} Invalid Interpretation Code [facility] Auto Coag PT Coag (PPP) [Time] 12.9 s High 9.4 - 1 2.5 second(s) FT Auto Coag HEMATOLOGYOrdered By: SYSTEM SYSTEM on 04-07-2023 Basophils/100 WBC (Bld) 0.4 % Normal 0.0 - 2.0 % FT HemeAutoSS Basophils/Leukocytes Auto (Bld) [Pure # fraction] [...] AGon 03-05 INFLUANEGH SEE BELOW Normal [facility] Comment on above: Result Comment: Nega tive for Flu A protein angiten. Infection due to Flu A cannot be ruled out. Flu A angiten in the sample may be below the detection limit of the test. Performed By: #### E RUR #### [facility] [address] [place] [address] [address] Hardeep Rivera [facility] SEE BELOW Normal [facility] Comment on above: Result Comment: Nega tive for Flu B protein antigen. Infection due to Flu B cannot be ruled out. Flu B antigen in the sample may be below the detection limit of the test. Performed By: #### E RUR #### [facility] [address] [place] [address] Dr. Hardeep Rivera INFLUENZA A AG Negative Normal NEGATIVE SEE COMMENT [facility] Comment on above: Performed By: #### E RUR #### [facility] [address] [place] [address] Dr. Hardeep Rivera INFLUENZA B AG Negative Normal NEGATIVE SEE COMMENT [facility] Comment on above: Performed By: #### E RUR #### [facility] [address] [place] [address] Dr. Hardeep Rivera SYMPTOMATIC COVID-19 ANTIGEN on 03-05-2023 EUA Statement SEE BELOW Normal [facility] [...] revoked sooner. Performed By: #### C VDAGS ####[facility] [id number] [address]Dr. Hardeep Rivera SARS-CoV-2 (COVID-19) RNA ULICES+probe Ql (Unsp spec) Positive Abnormal NEGATIVE [facility] Comment on above: Performed By: #### C VDAGS ####[facility] [address] [address]Dr. Hardeep Rivera FK506 (TACROLIMUS) WHOLE BLO ODon 02-28-2023 Tacrolimus (FK506), Blood 5.8 ng/mL Normal 2.0-20.0 [facility] Comment on above: Result Comment: Trou gh (immediately following transplant) 15.0 . Trough (steady state, 2 weeks or more after transplant): 3.0 - 8.0 . Performed by LC-MS/MS technology. Performed By: #### F [id number] ####[facility] [address] [address]Dr. Hardeep Rivera CBC AUTO DIFFon 02-14-2023 BASO # 0.0 103/ul Normal 0.0-0.1 [facility] Comment on above: Performed By: #### RANDALL OLSON #### [facility] [address] [place] [address] Dr. Hardeep Rivera Basophils/100 WBC (Bld) 0.5 % Normal 0.2-2.0 [facility] Comment on above: Performed By: #### RANDALL OLSON #### [facility] [address] [place] [address] Dr. Hardeep Rivera EO # 0.2 103/ul Normal 0.0-0.7 [facility] Comment on above: Performed By: #### RANDALL OLSON #### [facility] [address] [place] [address] Dr. Hardeep Rivera Eosinophils/100 WBC (Bld) 3.5 % Normal 0.9-7.0 [facility] Comment on above: Performed By: #### RANDALL OLSON #### [facility] [address] [place] [address] Dr. Hardeep Rivera Erythrocyte distribution width (RBC) [Ratio] 12.3 % Normal 11.0-15.0 [facility] Comment on above: Performed By: #### RANDALL OLSON #### [facility] [address] [place] [address] Dr. Hardeep Rivera Hematocrit (Bld) [Volume fraction] 38.7 % Normal 36.0-48.0 [facility] Comment on above: Performed By: #### Deedee PINON UMICRO #### [facility] [facility] [address] [place] [address] Dr. Hardeep Rivera Hemoglobin (Bld) [Mass/Vol] 12.6 g/dL Normal 12.0-16.0 [facility] Comment on above: Performed By: #### Deedee PINON, UMICRO #### [facility] [address] [place] [address] Dr. Hardeep Rivera IG # 0.03 10e3/ul Normal 0.00-0.03 [facility] Comment on above: Performed By: #### Deedee PINON, UMICRO #### [facility] [address] [place] [address] Dr. Hardeep Rivera IG % 0.5 % Normal 0.0-0.5 [facility] Comment on above: Performed By: #### Deedee PINON, UMICRO #### [facility] [address] [place] [address] Dr. Hardeep Rivera LYMPH # 0.8 103/ul Critically low 1.2-3.8 [facility] Comment on above: Performed By: #### Deedee PINON, UMICRO #### [facility] [address] [place] [address] Dr. Hardeep Rivera Lymphocytes/100 WBC (Bld) 13.2 % Critically low 20.5-60.0 [facility] Comment on above: Performed By: #### Deedee PINON, UMICRO #### [facility] [address] [place] [address] Dr. Hardeep Rivera MANUAL DIFF REQ NO [facility] Comment on above: Performed By: #### Deedee PINON, UMICRO #### [facility] [address] [place] [address] Dr. Hardeep Rivera MCH (RBC) [Entitic mass] 28.3 pg Normal 26.7-34.0 [facility] Comment on above: Performed By: #### HARI OLSONRO #### [facility] [address] [place] [address] Dr. Hardeep Rivera MCHC (RBC) [Mass/Vol] 32.6 g/dL Normal 29.9-35.2 [facility] Comment on above: Performed By: #### AKSHAT OLSONICRO #### [facility] [address] [place] [address] Dr. Hardeep Rivera MCV (RBC) [Entitic vol] 87.0 fL Normal 81.0-99.0 [facility] Comment on above: Performed By: #### HARI OLSONRO #### [facility] [address] [place] [address] Dr. Hardeep Rivera MONO # 0.8 103/ul Normal 0.3-0.8 [facility] Comment on above: Performed By: #### HARI OLSONRO #### [facility] [address] [place] [address] Dr. Hardeep Rivera Monocytes/100 WBC (Bld) 12.9 % Critically high 1.7-12.0 [facility] Comment on above: Performed By: #### HARI OLSONRO #### [facility] [address] [place] [address] Dr. Hardeep Rivera NEUT # 4.4 103/ul Normal 1.4-6.5 [facility] Comment on above: Performed By: #### HARI OLSONRO #### [facility] [address] [place] [address] Dr. Hardeep Rivera Neutrophils/100 WBC (Bld) 69.4 % Normal 43.0-75.0 [facility] Comment on above: Performed By: #### HARI OLSONRO #### [facility] [address] [place] [address] Dr. Hardeep Rivera Platelet mean volume (Bld) [Entitic vol] 9.0 fL Critically low 9.5-13.5 [facility] Comment on above: Performed By: #### HARI OLSONRO #### [facility] [address] [place], [place] [address] Dr. Hardeep Rivera PLT 205 103/ul Normal 150-450 [facility] Comment on above: Performed By: #### RANDALL OLSON #### [facility] [address] [place], [place] [address] Dr. Hardeep Rivera RBC 4.45 106/ul Normal 4.20-5.40 [facility] Comment on above: Performed By: #### RANDALL OLSON #### [facility] [address] [place], [place] [address] Dr. Hardeep Rivera WBC 6.3 103/ul Normal 4.0-11.0 [facility] Comment on above: Performed By: #### RANDALL OLSON #### [facility] [address] [place] [id number] Hardeep Rivera CT HEAD WO CONon [...] unchanged from 2016 likely relating to dystrophic calcification/minera lization. Stable mild patchy hypoattenuation involving the supratentorial [...] CAMERON NELSON Date: 2023-02-14 15:46 Normal [facility] ER URINE PROFILEon 3 Bilirubin Ql (U) Negative Normal NEGATIVE [facility] Comment on above: Performed By: #### Deedee PINON UMICRO #### [facility] [address] [place] [address] [address] Hardeep Rivera Clarity (U) CLEAR Normal CLEAR [facility] Comment on above: Performed By: #### E RUTrish, UMICRO #### [facility] [address] [place] [address] [address] Hardeep Rivera Color (U) LT. YELLOW Normal YELLOW [facility] Comment on above: Performed By: #### E KATHRIN UMICRO #### [facility] [address] [place] [address] Dr. Hardeep FRANCIS A micrscopic examination will be performed if indicated. Normal [facility] Comment on above: Performed By: #### Deedee RUTrish UMICRO #### [facility] [address] [place] [address] Dr. Hardeep Rivera Glucose Ql (U) Negative Normal NEGATIVE [facility] Comment on above: Performed By: #### Deedee RUTrish UMICRO #### [facility] [address] [address] [address] Hardeep Rivera Hemoglobin Ql (U) TRACE-INTACT Abnormal NEGATIVE [facility] [place] Comment on above: Performed By: #### Deedee PINON UMICRO #### [facility] [address] [address] [address] Hardeep Rivera Ketones Ql (U) Negative Normal NEGATIVE [facility] Comment on above: Performed By: #### Deedee RUTrish UMICRO #### [facility] [address] [place] [address] [address] Hardeep Rivera LEUKOCYTES Negative Normal NEGATIVE [facility] Comment on above: Performed By: #### Deedee PINON UMICRO #### [facility] [address] [place] [address] [address] Hardeep Rivera Nitrite Ql (U) Negative Normal NEGATIVE [facility] Comment on above: Performed By: #### Deedee RUR UMICRO #### [facility] [address] [place] [address] [address] Hardeep Rivera pH (U) 7.0 [pH] Normal 5-9 [facility] Comment on above: Performed By: #### RANDALL OLSON #### [facility] [address] [place] [address] [address] Hardeep Rivera Protein (U) [Mass/Vol] 30 mg/dL Abnormal NEGATIVE/ TRACE [facility] Comment on above: Performed By: #### HARI OLSONRO #### [facility] [address] [address] [address] Hardeep Rivera SPEC GRAVITY 1.010 Normal 1.005-<=1.025 [facility] Comment on above: Performed By: #### RANDALL OLSON #### [facility] [address] [place] [address] Dr. Hardeep Rivera UR MICRO IND INDICATED Normal [facility] Comment on above: Performed By: #### RANDALL OLSON #### [facility] [address] [place] [address] Dr. Hardeep Rivera Urobilinogen Qn (U) 0.2 {Kevon'U}/dL Normal 0.2 - 1. 0 [facility] Comment on above: Performed By: #### RANDALL OLSON #### [facility] [address] [place] [address] Dr. Hardeep Rivera PROF 14(COMP METB)on 023 Albumin [Mass/Vol] 3.5 g/dL Normal 3.4-5.0 [facility] Comment on above: Performed By: #### H STROPN, CMP, TSH ####[facility] [address] [place] [address]Dr. Hardeep Rivera Albumin/Globulin [Mass ratio] 1.2 {ratio} Normal [facility] Comment on above: Performed By: #### H STROPN, CMP, TSH ####[facility] [address] [place] [address]Dr. Hardeep Rivera ALP [Catalytic activity/Vol] 153 U/L Critically high 46-116 [facility] Comment on above: Performed By: #### H STROPN, CMP, TSH ####[facility] [address] [place] [address]Dr. Hardeep Rivera ALT [Catalytic activity/Vol] 21 U/L Normal 14-59 [facility] Comment on above: Performed By: #### H STROPN, CMP, TSH ####[facility] [address] [place] [address]Dr. Hardeep Rivera Anion gap [Moles/Vol] 9.3 mmol/L Normal [facility] Comment on above: Performed By: #### H STROPN, CMP, TSH ####[facility] [address] [place] [address]Dr. Hardeep Rivera AST [Catalytic activity/Vol] 23 U/L Normal 15-37 [facility] Comment on above: Performed By: #### H STROPN, CMP, TSH ####[facility] [address] [place], [place] [address]Dr. Hardeep Rivera Bilirubin [Mass/Vol] 0.6 mg/dL Normal 0.2-1.0 [facility] Comment on above: Performed By: #### H STROPN, CMP, TSH ####[facility] [address] [place], [place] [address]Dr. Hardeep Rivera Calcium [Mass/Vol] 8.4 mg/dL Critically low 8.5-10.1 [facility] [place] [facility] Comment on above: Performed By: #### H STROPN, CMP, TSH ####[facility] [address] [place] [address]Dr. Hardeep Rivera Chloride [Moles/Vol] 96 mmol/L Critically low 98-107 [facility] Comment on above: Performed By: #### H STROPN, CMP, TSH ####[facility] [address] [place] [address]Dr. Hardeep Rivera CO2 [Moles/Vol] 29.3 mmol/L Normal 21.0-32.0 The [facility] Comment on above: Performed By: #### H STROPN, CMP, TSH ####[facility] [address] [place] [address]Dr. Hardeep Rivera Creatinine [Mass/Vol] 1.16 mg/dL Critically high 0.55-1.02 [facility] Comment on above: Performed By: #### H STROPN, CMP, TSH ####[facility] [address] [place] [address]Dr. Hardeep Miguel EGFR-AF BURMESE 55 mL/min/1.73m2 Critically low >=60 [facility] Comment on above: Performed By: #### H STROPN, CMP, TSH ####[facility] [address] [place] [address]Dr. Hardeep Rivera EGFR-NON AF BURMESE 45 mL/min/1.73m2 Critically low >=60 [facility] Comment on above: Performed By: #### H STROPN, CMP, TSH ####[facility] [address] [place] [address]Dr. Hardeep Rivera Globulin (S) [Mass/Vol] 2.9 g/dL Normal [facility] Comment on above: Performed By: #### H STROPN, CMP, TSH ####[facility] [address] [place] [address]Dr. Hardeep Rivera Glucose [Mass/Vol] 105 mg/dL Normal 74-[address] [facility] Comment on above: Performed By: #### H STROPN, CMP, TSH ####[facility] [address] [place] [address]Dr. Hardeep Rivera Potassium [Moles/Vol] 4.6 mmol/L Normal 3.5-5.1 [facility] Comment on above: Performed By: #### H STROPN, CMP, TSH ####[facility] [address] [place] [address]Dr. Hardeep Rivera Protein [Mass/Vol] 6.4 g/dL Normal 6.4-8.[address] [facility] Comment on above: Performed By: #### H STROPN, CMP, TSH ####[facility] [address] [place] [address]Dr. Hardeep Rivera Sodium [Moles/Vol] 130 mmol/L Critically low 136-145 Th e [facility] Comment on above: Performed By: #### H GLADIS SCOTT, TSH ####[facility] [address] [place] [address]Dr. Hardeep Rivera Urea nitrogen [Mass/Vol] 27.0 mg/dL Critically high 7.0-18.0 [facility] Comment on above: Performed By: #### H TYLER CMP, TSH ####[facility] [address] [place] [address]Dr. Hardeep Rivera Urea nitrogen/Creatinine [Mass ratio] 23.3 mg/mg Normal The [facility] Comment on above: Performed By: #### H GLADIS SCOTT, TSH ####[facility] [address] [place], [place] [address]Dr. Hardeep Rivera PROTIMEon 02-14-2023 INR Coag (PPP) [Relative time] 1.07 {INR} Normal [facility] Comment on above: Performed By: #### P T, PTT ####[facility] [address] [place], [place] [address]Dr. Hardeep Rivera INR GUIDELINES SEE BELOW Normal The [facility] Comment on above: Result Comment: EDMUND RED INR: 2.0 - 3.0 CONDITIONS NOT LISTED BELOW 2.5 - 3.5 FOR PROSTHETIC HEART VALVE REPLACEMENT 2.5 - 3.5 RECURRENT THROMBOSIS Performed By: #### P T, PTT ####[facility] [address] [place], [place] [address]Dr. Hardeep Rivera PT Coag (PPP) [Time] 11.3 s Normal 9.0-11.6 [facility] Comment on above: Performed By: #### P T, PTT ####[facility] [address] [place], [place] [address]Dr. Hardeep Rivera PTTon 02-14-2023 aPTT Coag (Bld) [Time] 29.1 s Normal 22.3-36.2 [facility] Comment on above: Performed By: #### P T, PTT ####[facility] [address] [place], [place] [address]DrLaura Rivera TROPONIN, HIGH SENSITIVITYon 02-14-2023 HSTROP 10.4 pg/mL Normal 4.0-51.3 The [facility] Comment on above: Result Comment: CUT- OFF POINTS HAVE BEEN ESTABLISHED BASED ON THE FOURTH UNIVERSAL DEFINITIONS OF MYOCARDIAL INFARCTION. THE UPPER REFERENCE LIMIT (URL) OF TROPONIN, DEFINED THE 99TH PERCENTILE OF cTnI DISTRIBUTION IN A REFERENCE POPULATION, HAS BEEN CONFIRMED THE DECISION THRESHOLD FOR [place] DIAGNOSIS. Performed By: #### H GLADIS SCOTT, TSH ####[facility] [address] [place], [place] [address]VmLaura Rivera TSHon 02-14-2023 TSH 1.237 uIU/mL Normal 0.358-3.740 The [facility] Comment on above: Performed By: #### H GLADIS SCOTT, TSH ####[facility] [address] [place] [address]DrLaura Rivera URINE MICROSCOPIC ONLYon BACTERIA NONE SEEN Normal NONE SEEN [facility] Comment on above: Performed By: #### Deedee PINON UMICRO #### [facility] [address] [place] [address] Dr. Hardeep Rivera Bacteria identified Cx Nom (U) NOT INDICATED Normal [facility] Comment on above: Performed By: #### Deedee PINON UMICRO #### [facility] [address] [place] [address] Dr. Hardeep Rivera CAST NONE SEEN Normal NONE SEEN [facility] Comment on above: Performed By: #### Deedee PINON UMICRO #### [facility] [address] [place] [address] Dr. Hardeep Rivera Crystals LM Nom (Urine sed) NONE SEEN Normal NONE SEEN [facility] Comment on above: Performed By: #### Deedee PINON UMICRO #### [facility] [address] [place] [address] Dr. Hardeep Rivera Epithelial cells LM Ql (Urine sed) NONE SEEN Normal NONE SEEN /RARE [facility] Comment on above: Performed By: #### Deedee PINON UMICRO #### [facility] [address] [place] [address] Dr. Hardeep Rivera MUCOUS NONE SEEN Normal NONE SEEN The [facility] Comment on above: Performed By: #### RANDALL OLSON #### [facility] [address] [place] [address] [address] Hardeep Rivera RBC 0-2 Normal 0-2 [facility] Comment on above: Performed By: #### RANDALL OLSON #### [facility] [address] [place] [address] [address] Hardeep Rivera WBC NONE SEEN Normal NONE SEEN [facility] Comment on above: Performed By: #### RANDALL OLSON #### [facility] [address] [place] [address] [address] Hardeep Rivera XR CHEST 1 Von [...] JAZLYN DUBOSE Date: 2023-02-14 15:50 Normal The [facility] FK506 (TACROLIMUS) WHOLE BLO ODon 02-13-2023 Tacrolimus (FK506), Blood 1.4 ng/mL Critically low 2.0-20.0 The [facility] Comment on above: Result Comment: Trou gh (immediately following transplant) 15.0 . Trough (steady state, 2 weeks or more after transplant): 3.0 - 8.0 . Performed by LC-MS/MS technology. Performed By: #### E RUR #### [facility] [address] [place] [address] Dr. Hardeep Rivera PROF 14(COMP METB)on 023 Albumin [Mass/Vol] 3.5 g/dL Normal 3.4-5.0 [facility] Comment on above: Performed By: #### C MP ####[facility] [address] [place] [address]Dr. Hardeep Rivera Albumin/Globulin [Mass ratio] 1.2 {ratio} Normal [facility] Comment on above: Performed By: #### C MP ####[facility] [address] [place] [address]Dr. Hardeep Rivera ALP [Catalytic activity/Vol] 149 U/L Critically high 46-116 [facility] Comment on above: Performed By: #### C MP ####[facility] [address] [place] [address]Dr. Hardeep Rivera ALT [Catalytic activity/Vol] 19 U/L Normal 14-59 [facility] Comment on above: Performed By: #### C MP ####[facility] [address] [place] [address]Dr. Hardepe Rivera Anion gap [Moles/Vol] 11.7 mmol/L Normal [facility] Comment on above: Performed By: #### C MP ####[facility] [address] [place], [place] [address]Dr. Hardeep Rivera AST [Catalytic activity/Vol] 27 U/L Normal 15-37 [facility] Comment on above: Performed By: #### C MP ####[facility] [address] [place], [place] [address]Dr. Hardeep Rivera Bilirubin [Mass/Vol] 0.6 mg/dL Normal 0.2-1.0 [facility] Comment on above: Performed By: #### C MP ####[facility] [address] [place], [place] [address]Dr. Hardeep Rivera Calcium [Mass/Vol] 8.5 mg/dL Normal 8.5-10.1 [facility] Comment on above: Performed By: #### C MP ####[facility] [address] [place], [place] [address]Dr. Hardeep Miguel Chloride [Moles/Vol] 96 mmol/L Critically low 98-107 The [facility] Comment on above: Performed By: #### C MP ####[facility] [address] [place] [address]Dr. Hardeep Miguel CO2 [Moles/Vol] 28.1 mmol/L Normal 21.0-32.0 [facility] Comment on above: Performed By: #### C MP ####[facility] [address] [place] [address]Dr. Hardeep Rivera Creatinine [Mass/Vol] 1.24 mg/dL Critically high 0.55-1.02 [facility] Comment on above: Performed By: #### C MP ####[facility] [address] [place] [id number]. Hardeep Rivera EGFR-AF BURMESE 51 mL/min/1.73m2 Critically low >=60 [facility] Comment on above: Performed By: #### C MP ####[facility] [address] [place] [address]Dr. Hardeep Miguel EGFR-NON AF BURMESE 42 mL/min/1.73m2 Critically low >=60 [facility] Comment on above: Performed By: #### C MP ####[facility] [address] [place] [address]Dr. Hardeep Miguel Globulin (S) [Mass/Vol] 3.0 g/dL Normal [facility] Comment on above: Performed By: #### C MP ####[facility] [address] [place] [address]Dr. Hardeep Rivera Glucose [Mass/Vol] 141 mg/dL Critically high 74-[address] [facility] Comment on above: Performed By: #### C MP ####[facility] [address] [place] [address]Dr. Hardeep Rivera Potassium [Moles/Vol] 4.8 mmol/L Normal 3.5-5.1 [facility] Comment on above: Performed By: #### C MP ####[facility] [address] [place] [address]Dr. Hardeep Miguel Protein [Mass/Vol] 6.5 g/dL Normal 6.4-8.2 [facility] Comment on above: Performed By: #### C MP ####[facility] [address] [place] [address]Dr. Hardeep Rivera Sodium [Moles/Vol] 131 mmol/L Critically low 136-145 Th [facility] [place] [facility] Comment on above: Performed By: #### C MP ####[facility] [address] [place] [address]Dr. Hardeep Rivera Urea nitrogen [Mass/Vol] 29.0 mg/dL Critically high 7.0-18.0 The [facility] Comment on above: Performed By: #### C MP ####[facility] [address] [place] [address]Dr. Hardeep Rivera Urea nitrogen/Creatinine [Mass ratio] 23.4 mg/mg Normal [facility] Comment on above: Performed By: #### C MP ####[facility] [address] [place] [address]Dr. Hardeep Rivera BNPon 01-09-2023 Natriuretic peptide B (Bld) [Mass/Vol] 336.0 pg/mL Normal <=1,800.0 [facility] Comment on above: Performed By: #### C MP, TSH, BNP, T7 ####[facility] [address] [place], [place] [address]DrLaura Rivera CBC AUTO DIFFon 01-09-2023 BASO # 0.0 103/ul Normal 0.0-0.1 [facility] Comment on above: Performed By: #### C BC #### [facility] [address] [place] [address] Dr. Hardeep Rivera Basophils/100 WBC (Bld) 0.4 % Normal 0.2-2.0 [facility] Comment on above: Performed By: #### C BC #### [facility] [address] [place] [address] Dr. Hardeep Rivera EO # 0.3 103/ul Normal 0.0-0.7 [facility] Comment on above: Performed By: #### C BC #### [facility] [address] [place] [address] Dr. Hardeep Rivera Eosinophils/100 WBC (Bld) 4.4 % Normal 0.9-7.0 [facility] Comment on above: Performed By: #### C BC #### [facility] [address] [place] [address] Dr. Hardeep Rivera Erythrocyte distribution width (RBC) [Ratio] 12.3 % Normal 11.0-15.0 [facility] Comment on above: Performed By: #### C BC #### [facility] [address] [place] [address] Dr. Hardeep Rivera Hematocrit (Bld) [Volume fraction] 43.3 % Normal 36.0-48.0 [facility] Comment on above: Performed By: #### C BC #### [facility] Laboratory [address] [place] [address] Dr. Hardeep Rivera Hemoglobin (Bld) [Mass/Vol] 13.5 g/dL Normal 12.0-16.0 [facility] Comment on above: Performed By: #### C BC #### [facility] Laboratory [address] [place] [address] Dr. Hardeep Rivera IG # 0.02 10e3/ul Normal 0.00-0.03 [facility] Comment on above: Performed By: #### C BC #### [facility] Laboratory [address] [place] [address] Dr. Hardeep Rivera IG % 0.3 % Normal 0.0-0.5 [facility] Comment on above: Performed By: #### C BC #### [facility] Laboratory [address] [place] [address] Dr. Hardeep Rivera LYMPH # 1.1 103/ul Critically low 1.2-3.8 [facility] Comment on above: Performed By: #### C BC #### [facility] Laboratory [address] [place] [address] Dr. Hardeep Rivera Lymphocytes/100 WBC (Bld) 16.0 % Critically low 20.5-60.0 [facility] Comment on above: Performed By: #### C BC #### [facility] Laboratory [address] [place] [address] Dr. Hardeep Rivera MANUAL DIFF REQ NO [facility] Comment on above: Performed By: #### C BC #### [facility] Laboratory [address] [place] [address] Dr. Hardeep Rivera MCH (RBC) [Entitic mass] 28.4 pg Normal 26.7-34.0 [facility] Comment on above: Performed By: #### C BC #### [facility] Laboratory [address] [place] [address] Dr. Hardeep Rivera MCHC (RBC) [Mass/Vol] 31.2 g/dL Normal 29.9-35.2 [facility] Comment on above: Performed By: #### C BC #### [facility] Laboratory [address] [place] [address] Dr. Hardeep Rivera MCV (RBC) [Entitic vol] 91.0 fL Normal 81.0-99.0 [facility] Comment on above: Performed By: #### C BC #### [facility] Laboratory [address] [place] [address] Dr. Hardeep Rivera MONO # 1.0 103/ul Critically high 0.3-0.8 [facility] Comment on above: Performed By: #### C BC #### [facility] Laboratory [address] [place] [address] Dr. Hardeep Rivera Monocytes/100 WBC (Bld) 14.7 % Critically high 1.7-12.0 [facility] Comment on above: Performed By: #### C BC #### [facility] Laboratory [address] [place] [address] Dr. Hardeep Rivera NEUT # 4.4 103/ul Normal 1.4-6.5 [facility] Comment on above: Performed By: #### C BC #### [facility] Laboratory [address] [place] [address] Dr. Hardeep Rivera Neutrophils/100 WBC (Bld) 64.2 % Normal 43.0-75.0 [facility] Comment on above: Performed By: #### C BC #### [facility] Laboratory [address] [place] [address] Dr. Hardeep Rivera Platelet mean volume (Bld) [Entitic vol] 9.5 fL Normal 9.5-13.5 [facility] Comment on above: Performed By: #### C BC #### [facility] Laboratory [address] [place] [address] Dr. Hardeep Rivera PLT 238 103/ul Normal 150-450 [facility] Comment on above: Performed By: #### C BC #### [facility] Laboratory [address] [address] [address] Hardeep Rivera RBC 4.76 106/ul Normal 4.20-5.40 [facility] Comment on above: Performed By: #### C BC #### [facility] Laboratory [address] [address] [address] Hardeep Rivera WBC 6.8 103/ul Normal 4.0-11.0 [facility] Comment on above: Performed By: #### C BC #### [facility] Laboratory [address] [address] [address] Hardeep Rivera FREE THYROXINE INDEX T7on FTI 3.96 Normal 1.30-4.50 [facility] Comment on above: Performed By: #### C MP, TSH, BNP, T7 ####[facility] [address] [address]DrLaura Rivera T3U 35.0 % Normal 30.0-39.0 [facility] Comment on above: Performed By: #### C MP, TSH, BNP, T7 ####[facility] [address] [address]DrLaura Rivera T4 [Mass/Vol] 11.30 ug/dL Normal 4.80-13.90 [facility] Comment on above: Performed By: #### C MP, TSH, BNP, T7 ####[facility] [address] [address]DrLaura Rivera PROF 14(COMP METB)on 023 Albumin [Mass/Vol] 3.9 g/dL Normal 3.4-5.0 [facility] Comment on above: Performed By: #### C MP, TSH, BNP, T7 ####[facility] [address] [address]DrLaura Rivera Albumin/Globulin [Mass ratio] 1.2 {ratio} Normal [facility] Comment on above: Performed By: #### C MP, TSH, BNP, T7 ####[facility] [address] [address]Dr. Hardeep Rivera ALP [Catalytic activity/Vol] 151 U/L Critically high 46-116 [facility] Comment on above: Performed By: #### C MP, TSH, BNP, T7 ####[facility] [address] [address]Dr. Hardeep Rivera ALT [Catalytic activity/Vol] 30 U/L Normal 14-59 [facility] Comment on above: Performed By: #### C MP, TSH, BNP, T7 ####[facility] [address] [address]Dr. Hardeep Rivera Anion gap [Moles/Vol] 15.6 mmol/L Normal [facility] Comment on above: Performed By: #### C MP, TSH, BNP, T7 ####[facility] [address] [address]Dr. Hardeep Rivera AST [Catalytic activity/Vol] 23 U/L Normal 15-37 [facility] Comment on above: Performed By: #### C MP, TSH, BNP, T7 ####[facility] [address] [address]Dr. Hardeep Rivera Bilirubin [Mass/Vol] 0.7 mg/dL Normal 0.2-1.0 [facility] Comment on above: Performed By: #### C MP, TSH, BNP, T7 ####[facility] [address] [address]Dr. Hardeep Rivera Calcium [Mass/Vol] 9.0 mg/dL Normal 8.5-10.1 [facility] Comment on above: Performed By: #### C MP, TSH, BNP, T7 ####[facility] [address] [address]Dr. Hardeep Rivera Chloride [Moles/Vol] 97 mmol/L Critically low 98-107 [facility] Comment on above: Performed By: #### C MP, TSH, BNP, T7 ####[facility] [address] [address]Dr. Hardeep Rivera CO2 [Moles/Vol] 26.1 mmol/L Normal 21.0-32.0 [facility] Comment on above: Performed By: #### C MP, TSH, BNP, T7 ####[facility] [address] [address]Dr. Hardeep Rivera Creatinine [Mass/Vol] 1.78 mg/dL Critically high 0.55-1.02 [facility] Comment on above: Performed By: #### C MP, TSH, BNP, T7 ####[facility] [address] [address]Dr. Hardeep Miguel EGFR-AF BURMESE 33 mL/min/1.73m2 Critically low >=60 [facility] Comment on above: Performed By: #### C MP, TSH, BNP, T7 ####[facility] [address] [address]Dr. Hardeep Rivera EGFR-NON AF BURMESE 28 mL/min/1.73m2 Critically low >=60 [facility] Comment on above: Performed By: #### C MP, TSH, BNP, T7 ####[facility] [address] [place], [place] [address]Dr. Preethiarabella Rivera Globulin (S) [Mass/Vol] 3.3 g/dL Normal [facility] Comment on above: Performed By: #### C MP, TSH, BNP, T7 ####[facility] [address] [place] [address]Dr. Hardeep Rivera Glucose [Mass/Vol] 127 mg/dL Critically high 74-106 [facility] Comment on above: Performed By: #### C MP, TSH, BNP, T7 ####[facility] [address] [address]Dr. Hardeep Rivera Potassium [Moles/Vol] 3.7 mmol/L Normal 3.5-5.1 [facility] Comment on above: Performed By: #### C MP, TSH, BNP, T7 ####[facility] [address] [place] [address]Dr. Hardeep Rivera Protein [Mass/Vol] 7.2 g/dL Normal 6.4-8.2 [facility] Comment on above: Performed By: #### C MP, TSH, BNP, T7 ####[facility] [address] [address]Dr. Hardeep Rivera Sodium [Moles/Vol] 135 mmol/L Critically low 136-145 [facility] Comment on above: Performed By: #### C MP, TSH, BNP, T7 ####[facility] [address] [address]Dr. Hardeep Rivera Urea nitrogen [Mass/Vol] 54.0 mg/dL Critically high 7.0-18.0 [facility] Comment on above: Performed By: #### C MP, TSH, BNP, T7 ####[facility] [address] [place] [address]Dr. Hardeep Rivera Urea nitrogen/Creatinine [Mass ratio] 30.3 mg/mg Normal [facility] Comment on above: Performed By: #### C MP, TSH, BNP, T7 ####[facility] [address] [address]Dr. Hardeep Rivera TSHon 01-09-2023 TSH 1.097 uIU/mL Normal 0.358-3.740 [facility] Comment on above: Performed By: #### C MP, TSH, BNP, T7 ####[facility] [address] [place] [address]Dr. Hardeep Rivera ECHOCARDIO M/2D COMPLETEon 0 12-13-2022 ECHOCARDIO M/2D COMPLETE Patient: SYLVIA HERRERA Exam Date: 12/13/2022 : 1945 Gender:F Ordering : [facility] Admission #: [id number] Family : Order #: [id number] CLICK HERE TO VIEW EXAM ECHOCARDIOGRAM REPORT [...] Area (VTI): 2.23 cm2, 2.23 cm2 Deceleration [place]: 1.44 m/s2 Pressure Half-Time: 850.98 ms Peak [...] on 12/14/2022 at 13:49 Normal [facility] US KT DOP LEG BILon 023 US [...] by: HAI FOSTER Date: 2022-12-13 10:51 Normal [facility] BNPon 12-11-2022 Natriuretic peptide B (Bld) [Mass/Vol] 457.0 pg/mL Normal <=1,800.0 [facility] Comment on above: Performed By: #### E HARI PINONRO #### [facility] Laboratory [address] [place] [address] Dr. Hardeep Rivera CBC AUTO DIFFon 12-11-2022 BASO # 0.0 103/ul Normal 0.0-0.1 [facility] Comment on above: Performed By: #### HARI OLSONRO #### [facility] Laboratory [address] [place] [address] Dr. Hardeep Rivera Basophils/100 WBC (Bld) 0.4 % Normal 0.2-2.0 [facility] Comment on above: Performed By: #### HARI OLSONRO #### [facility] Laboratory [address] [place] [address] Dr. Hardeep Rivera EO # 0.2 103/ul Normal 0.0-0.7 [facility] Comment on above: Performed By: #### HARI OLSONRO #### [facility] Laboratory [address] [place] [address] Dr. Hardeep Rivera Eosinophils/100 WBC (Bld) 2.7 % Normal 0.9-7.0 [facility] Comment on above: Performed By: #### HARI OLSONRO #### [facility] Laboratory [address] [place] [address] Dr. Hardeep Rivera Erythrocyte distribution width (RBC) [Ratio] 11.9 % Normal 11.0-15.0 [facility] Comment on above: Performed By: #### HARI OLSONRO #### [facility] Laboratory [address] [place] [address] Dr. Hardeep Rivera Hematocrit (Bld) [Volume fraction] 40.2 % Normal 36.0-48.0 [facility] Comment on above: Performed By: #### HARI OLSONRO #### [facility] Laboratory [address] [place] [address] Dr. Hardeep Rivera Hemoglobin (Bld) [Mass/Vol] 13.5 g/dL Normal 12.0-16.0 [facility] Comment on above: Performed By: #### HARI OLSONRO #### [facility] Laboratory [address] [place] [address] Dr. Hardeep Rivera IG # 0.03 10e3/ul Normal 0.00-0.03 [facility] Comment on above: Performed By: #### AKSHAT OLSONICRO #### [facility] Laboratory [address] [place] [address] Dr. Hardeep Rivera IG % 0.4 % Normal 0.0-0.5 [facility] Comment on above: Performed By: #### AKSHAT OLSONICRO #### [facility] Laboratory [address] [place] [address] Dr. Hardeep Rivera LYMPH # 0.9 103/ul Critically low 1.2-3.8 [facility] Comment on above: Performed By: #### Deedee PINON UMICRO #### [facility] Laboratory [address] [place] [address] Dr. Hardeep Rivera Lymphocytes/100 WBC (Bld) 11.3 % Critically low 20.5-60.0 [facility] Comment on above: Performed By: #### Deedee PINON UMICRO #### [facility] Laboratory [address] [place] [address] Dr. Hardeep Rivera MANUAL DIFF REQ NO [facility] Comment on above: Performed By: #### Deedee PINON UMICRO #### [facility] Laboratory [address] [place] [address] Dr. Hardeep Rivera MCH (RBC) [Entitic mass] 28.4 pg Normal 26.7-34.0 [facility] Comment on above: Performed By: #### Deedee PINON, UMICRO #### [facility] Laboratory [address] [place] [address] Dr. Hardeep Rivera MCHC (RBC) [Mass/Vol] 33.6 g/dL Normal 29.9-35.2 [facility] Comment on above: Performed By: #### Deedee PINON, UMICRO #### [facility] Laboratory [address] [place] [address] Dr. Hardeep Rivera MCV (RBC) [Entitic vol] 84.5 fL Normal 81.0-99.0 [facility] Comment on above: Performed By: #### HARI OLSONRO #### [facility] Laboratory [address] [place] [address] Dr. Hardeep Rivera MONO # 1.0 103/ul Critically high 0.3-0.8 [facility] Comment on above: Performed By: #### HARI OLSONRO #### [facility] Laboratory [address] [place] [address] Dr. Hardeep Rivera Monocytes/100 WBC (Bld) 12.5 % Critically high 1.7-12.0 [facility] Comment on above: Performed By: #### HARI OLSONRO #### [facility] Laboratory [address] [place] [address] Dr. Hardeep Rivera NEUT # 5.9 103/ul Normal 1.4-6.5 [facility] Comment on above: Performed By: #### HARI OLSONRO #### [facility] Laboratory [address] [place] [address] Dr. Hardeep Rivera Neutrophils/100 WBC (Bld) 72.7 % Normal 43.0-75.0 [facility] Comment on above: Performed By: #### HARI OLSONRO #### [facility] Laboratory [address] [place] [address] Dr. Hardeep Rivera Platelet mean volume (Bld) [Entitic vol] 8.6 fL Critically low 9.5-13.5 [facility] Comment on above: Performed By: #### HARI OLSONRO #### [facility] Laboratory [address] [place] [address] Dr. Hardeep Rivera PLT 226 103/ul Normal 150-450 [facility] Comment on above: Performed By: #### HARI OLSONRO #### [facility] [address] [place] [address] Dr. Hardeep Rivera RBC 4.76 106/ul Normal 4.20-5.40 [facility] Comment on above: Performed By: #### HARI OLSONRO #### [facility] [address] [place] [address] Dr. Hardeep Rivera WBC 8.2 103/ul Normal 4.0-11.0 [facility] Comment on above: Performed By: #### AKSHAT OLSONICRO #### [facility] [address] [place] [address] Dr. Hardeep Rivera FREE THYROXINE INDEX T7on FTI 3.40 Normal 1.30-4.50 [facility] Comment on above: Performed By: #### Deedee PINON UMICRO #### [facility] [address] [place] [address] Dr. Hardeep Rivera T3U 34.0 % Normal 30.0-39.0 [facility] Comment on above: Performed By: #### Deedee PINON UMICRO #### [facility] Laboratory [address] [place] [address] Dr. Hardeep Rivera T4 [Mass/Vol] 10.00 ug/dL Normal 4.80-13.90 [facility] Comment on above: Performed By: #### Deedee PINON UMICRO #### [facility] Laboratory [address] [place] [address] Dr. Hardeep Rivera PROF 14(COMP METB)on 023 Albumin [Mass/Vol] 3.8 g/dL Normal 3.4-5.0 [facility] Comment on above: Performed By: #### Deedee PINON UMICRO #### [facility] [address] [place] [address] Dr. Hardeep Rivera Albumin/Globulin [Mass ratio] 1.1 {ratio} Normal [facility] Comment on above: Performed By: #### Deedee PINON UMICRO #### [facility] [address] [place] [address] Dr. Hardeep Rivera ALP [Catalytic activity/Vol] 192 U/L Critically high 46-116 [facility] Comment on above: Performed By: #### Deedee PINON UMICRO #### [facility] [address] [place] [address] Dr. Hardeep Rivera ALT [Catalytic activity/Vol] 22 U/L Normal 14-59 [facility] Comment on above: Performed By: #### AKSHAT OLSONICRO #### [facility] [address] [address] [address] Hardeep Rivera Anion gap [Moles/Vol] 11.4 mmol/L Normal [facility] Comment on above: Performed By: #### AKSHAT OLSONICRO #### [facility] [address] [address] [address] Hardeep Rivera AST [Catalytic activity/Vol] 22 U/L Normal 15-37 [facility] Comment on above: Performed By: #### Deedee PINON UMICRO #### [facility] [address] [place] [address] Dr. Hardeep Rivera Bilirubin [Mass/Vol] 0.5 mg/dL Normal 0.2-1.0 [facility] Comment on above: Performed By: #### Deedee PINON UMICRO #### [facility] [address] [place] [address] Dr. Hardeep Rivera Calcium [Mass/Vol] 9.1 mg/dL Normal 8.5-10.1 [facility] Comment on above: Performed By: #### Deedee PINON UMICRO #### [facility] Laboratory [address] [place] [address] Dr. Hardeep Rivera Chloride [Moles/Vol] 93 mmol/L Critically low 98-107 [facility] Comment on above: Performed By: #### Deedee PINON UMICRO #### [facility] [address] [place] [address] Dr. Hardeep Rivera CO2 [Moles/Vol] 30.8 mmol/L Normal 21.0-32.0 [facility] Comment on above: Performed By: #### Deedee PINON UMICRO #### [facility] [address] [place] [address] Dr. Hardeep Rivera Creatinine [Mass/Vol] 1.49 mg/dL Critically high 0.55-1.02 [facility] Comment on above: Performed By: #### Deedee PINON UMICRO #### [facility] [address] [place] [address] Dr. Hardeep Rivera EGFR-AF BURMESE 41 mL/min/1.73m2 Critically low >=60 [facility] Comment on above: Performed By: #### HARI OLSONRO #### [facility] [address] [address] [address] Hardeep Rivera EGFR-NON AF BURMESE 34 mL/min/1.73m2 Critically low >=60 [facility] Comment on above: Performed By: #### HARI OLSONRO #### [facility] [address] [place] [address] Dr. Hardeep Rivera Globulin (S) [Mass/Vol] 3.4 g/dL Normal [facility] Comment on above: Performed By: #### AKSHAT OLSONICRO #### [facility] [address] [place] [address] Dr. Hardeep Rivera Glucose [Mass/Vol] 116 mg/dL Critically high 74-[address] [facility] Comment on above: Performed By: #### HARI OLSONRO #### [facility] [address] [place] [address] Dr. Hardeep Rivera Potassium [Moles/Vol] 4.2 mmol/L Normal 3.5-5.1 [facility] Comment on above: Performed By: #### Deedee PINON UMICRO #### [facility] [address] [place] [address] Dr. Hardeep Rivera Protein [Mass/Vol] 7.2 g/dL Normal 6.4-8.2 [facility] Comment on above: Performed By: #### Deedee PINON UMICRO #### [facility] [address] [place] [address] Dr. Hardeep Rivera Sodium [Moles/Vol] 131 mmol/L Critically low 136-145 Th [facility] Comment on above: Performed By: #### Deedee PINON UMICRO #### [facility] [address] [place] [address] Dr. Hardeep Rivera Urea nitrogen [Mass/Vol] 38.0 mg/dL Critically high 7.0-18.0 [facility] Comment on above: Performed By: #### E COLLINSR, UMICRO #### [facility] [address] [address] [address] Hardeep Rivera Urea nitrogen/Creatinine [Mass ratio] 25.5 mg/mg Normal [facility] Comment on above: Performed By: #### E KATHRIN UMICRO #### [facility] [address] [address] [address] Hardeep Rivera TSHon 12-11-2022 TSH 6.407 uIU/mL Critically high 0.358-3.740 [facility] Comment on above: Performed By: #### E COLLINSR, UMICRO #### [facility] [address] [address] [address] Hardeep Rivera Covid-19 PCR (CVDTB)on 11-01 SARS-CoV-2 (COVID-19) RNA ULICES+probe Ql (Unsp spec) Not detected Normal NOT DETECTED [facility] Comment on above: Result Comment: This test is not yet approved or cleared by the [place] FDA. When there are no FDA-approved or cleared tests available, and other criteria are met, FDA can make tests available under an emergency access mechanism called an Emergency Use Authorization (EUA). The EUA for this test is supported by the [employer] Att[employer] of Health and Human Service's (HHS's) declaration [...] SARS-CoV-2. Performed By: #### C VDTBH #### [facility] [address] [address] [address] Hardeep Rivera INFLUENZA A AND B AGon 11-14 INFLUANEGH SEE BELOW Normal [facility] Comment on above: Result Comment: Nega tive for Flu A protein angiten. Infection due to Flu A cannot be ruled out. Flu A angiten in the sample may be below the detection limit of the test. Performed By: #### E RUR, UMICRO #### [facility] Laboratory [address] [place] [address] Dr. Hardeep Rivera INFLUBNEGH SEE BELOW Normal [facility] Comment on above: Result Comment: Nega tive for Flu B protein antigen. Infection due to Flu B cannot be ruled out. Flu B antigen in the sample may be below the detection limit of the test. Performed By: #### E RUR, UMICRO #### [facility] [address] [place] [address] Dr. Hardeep Rivera INFLUENZA A AG Negative Normal NEGATIVE SEE COMMENT [facility] Comment on above: Performed By: #### E RUR, UMICRO #### [facility] [address] [place] [address] Dr. Hardeep Rivera INFLUENZA B AG Negative Normal NEGATIVE SEE COMMENT [facility] Comment on above: Performed By: #### E RUR, UMICRO #### [facility] [address] [place] [address] Dr. Hardeep Rivera INTERNAL CONTROLS Within Normal Limits Normal Wi thin Normal Limits [facility] Comment on above: Performed By: #### E RUR, UMICRO #### [facility] [address] [place] [address] Dr. Hardeep Rivera Covid-19 PCR ([facility])on SARS-CoV-2 (COVID-19) RNA ULICES+probe Ql (Unsp spec) Not detected Normal NOT DETECTED [facility] Comment on above: Result Comment: This test is not yet approved or cleared by the [place] FDA. When there are no FDA-approved or cleared tests available, and other criteria are met, FDA can make tests available under an emergency access mechanism called an Emergency Use Authorization (EUA). The EUA for this test is supported by the [place] of Health and Human Service's (HHS's) declaration [...] consistent with SARS-CoV-2. Performed By: #### C [facility] #### [facility] [address] [place] [address] Dr. Hardeep Rivera INFLUENZA A AND B [facility] 10-03 [facility] SEE BELOW Normal [facility] Comment on above: Result Comment: Nega tive for Flu A protein angiten. Infection due to Flu A cannot be ruled out. Flu A angiten in the sample may be below the detection limit of the test. Performed By: #### AHRI OLSONRO #### [facility] [address] [place] [address] Dr. Hardeep Rivera [facility] SEE BELOW Normal [facility] Comment on above: Result Comment: Nega tive for Flu B protein antigen. Infection due to Flu B cannot be ruled out. Flu B antigen in the sample may be below the detection limit of the test. Performed By: #### AKSHAT OLSONICRO #### [facility] [address] [place] [address] Dr. Hardeep Rivera INFLUENZA A AG Negative Normal NEGATIVE SEE COMMENT [facility] Comment on above: Performed By: #### AKSHAT OLSONICRO #### [facility] [address] [place] [address] Dr. Hardeep Rivera INFLUENZA B AG Negative Normal NEGATIVE SEE COMMENT [facility] Comment on above: Performed By: #### AKSHAT OLSONICRO #### [facility] [address] [place] [address] Dr. Hardeep Rivera INTERNAL CONTROLS Within Normal Limits Normal Wi thin Normal Limits [facility] Comment on above: Performed By: #### HARI OLSONRO #### [facility] [address] [place] [address] Dr. Hardeep Rivera AMYLASEon 08-04-2022 Amylase [Catalytic activity/Vol] 155 U/L Critically high 25-115 [facility] Comment on above: Performed By: #### C ABAD MORE AMY ####[facility] [address] [place] [address]Dr. Hardeep Rivera CBC AUTO DIFFon 08-04-2022 BASO # 0.0 103/ul Normal 0.0-0.1 [facility] Comment on above: Performed By: #### C BC ####[facility] [address] [place], [place] [address]Dr. Hardeep Rivera Basophils/100 WBC (Bld) 0.3 % Normal 0.2-2.0 [facility] Comment on above: Performed By: #### C BC ####[facility] [address] [place], [place] [address]DrLaura Rivera EO # 0.1 103/ul Normal 0.0-0.7 [facility] Comment on above: Performed By: #### C BC ####[facility] [address] [place], [place] [address]Dr. Hardeep Rivera Eosinophils/100 WBC (Bld) 1.2 % Normal 0.9-7.0 [facility] Comment on above: Performed By: #### C BC ####[facility] [address] [place], [place] [address]DrLaura Rivera Erythrocyte distribution width (RBC) [Ratio] 12.2 % Normal 11.0-15.0 [facility] Comment on above: Performed By: #### C BC ####[facility] [address] [place], [place] [address]DrLaura Rivera Hematocrit (Bld) [Volume fraction] 38.3 % Normal 36.0-48.0 [facility] Comment on above: Performed By: #### C BC ####[facility] [address] [place], [place] [address]DrLaura Rivera Hemoglobin (Bld) [Mass/Vol] 12.9 g/dL Normal 12.0-16.0 [facility] Comment on above: Performed By: #### C BC ####[facility] [address] [place] [id number]. Hardeep Rivera IG # 0.02 10e3/ul Normal 0.00-0.03 [facility] Comment on above: Performed By: #### C BC ####[facility] [address] [place] [address]Dr. Hardeep Rivera IG % 0.3 % Normal 0.0-0.5 [facility] Comment on above: Performed By: #### C BC ####[facility] [address] [place] [address]Dr. Hardeep Rivera LYMPH # 1.1 103/ul Critically low 1.2-3.8 [facility] Comment on above: Performed By: #### C BC ####[facility] [address] [place] [address]Dr. Hardeep Rivera Lymphocytes/100 WBC (Bld) 16.6 % Critically low 20.5-60.0 [facility] Comment on above: Performed By: #### C BC ####[facility] [address] [place] [address]Dr. Hardeep Rivera MANUAL DIFF REQ NO [facility] Comment on above: Performed By: #### C BC ####[facility] [address] [place] [address]Dr. Hardeep Rivera MCH (RBC) [Entitic mass] 29.7 pg Normal 26.7-34.0 [facility] Comment on above: Performed By: #### C BC ####[facility] [address] [place], [place] [id number]. Hardeep Rivera MCHC (RBC) [Mass/Vol] 33.7 g/dL Normal 29.9-35.2 [facility] Comment on above: Performed By: #### C BC ####[facility] [address] [place], [place] [address]Dr. Hardeep Rivera MCV (RBC) [Entitic vol] 88.2 fL Normal 81.0-99.0 [facility] Comment on above: Performed By: #### C BC ####[facility] [address] [place] [address]Dr. Hardeep Rivera MONO # 0.7 103/ul Normal 0.3-0.8 [facility] Comment on above: Performed By: #### C BC ####[facility] [address] [place] [address]Dr. Hardeep Rivera Monocytes/100 WBC (Bld) 11.1 % Normal 1.7-12.0 [facility] Comment on above: Performed By: #### C BC ####[facility] [address] [place] [address]Dr. Hardeep Rivera NEUT # 4.6 103/ul Normal 1.4-6.5 [facility] Comment on above: Performed By: #### C BC ####[facility] [address] [place], [place] [address]Dr. Hardeep Rivera Neutrophils/100 WBC (Bld) 70.5 % Normal 43.0-75.0 [facility] Comment on above: Performed By: #### C BC ####[facility] [address] [place] [address]Dr. Hardeep Rivera Platelet mean volume (Bld) [Entitic vol] 9.4 fL Critically low 9.5-13.5 [facility] Comment on above: Performed By: #### C BC ####[facility] [address] [place] [address]Dr. aHrdeep Rivera PLT 203 103/ul Normal 150-450 [facility] Comment on above: Performed By: #### C BC ####[facility] [address] [place], [place] [address]Dr. Hardeep Rivera RBC 4.34 106/ul Normal 4.20-5.40 [facility] Comment on above: Performed By: #### C BC ####[facility] [address] [place] [address]Dr. Hardeep Rivera WBC 6.5 103/ul Normal 4.0-11.0 [facility] Comment on above: Performed By: #### C BC ####[facility] [address] [place], [place] [address]Mc. Hard[address]ep Rivera CT ABD/PELVIS WO CONon 08-04 CT ABD/PELVIS WO CON TECHNIQUE: CT abdomen and pelvis. Helically acquired axial images of [...] ALEXSANDER HARDING Date: 2022-08-04 20:12 Normal [facility] Covid-19 PCR (CVDTB)on SARS-CoV-2 (COVID-19) RNA ULICES+probe Ql (Unsp spec) Not detected Normal NOT DETECTED [facility] Comment [...] for this test is supported by the [place] of Health and Human Service's declaration that [...] be used). Performed By: #### C VDTBH ####[facility] [address] [place], [place] [address]YqDr. Hardeep Rivera ER URINE PROFILEon 2 Bilirubin Ql (U) Negative Normal NEGATIVE The [facility] Comment on above: Performed By: #### E RUR #### [facility] [address] [place], [place] [address] Dr. Hardeep Rivera Clarity (U) CLEAR Normal CLEAR [facility] Comment on above: Performed By: #### E RUR #### [facility] [address] [place] [address] Dr. Hardeep Rivera Color (U) LT. YELLOW Normal YELLOW [facility] Comment on above: Performed By: #### E RUR #### [facility] [address] [place] [address] Dr. Hardeep FRANCIS A micrscopic examination will be performed if indicated. Normal [facility] Comment on above: Performed By: #### E RUR #### [facility] [address] [place] [address] Dr. Hardeep Rivera Glucose Ql (U) Negative Normal NEGATIVE [facility] Comment on above: Performed By: #### E RUR #### [facility] [address] [place] [address] Dr. Hardeep Rivera Hemoglobin Ql (U) Negative Normal NEGATIVE [facility] Comment on above: Performed By: #### E RUR #### [facility] [address] [place] [address] Dr. Hardeep Rivera Ketones Ql (U) Negative Normal NEGATIVE [facility] Comment on above: Performed By: #### E RUR #### [facility] [address] [place] [address] Dr. Hardeep Rivera LEUKOCYTES Negative Normal NEGATIVE [facility] Comment on above: Performed By: #### E RUR #### [facility] [address] [place] [address] Dr. Hardeep Rivera Nitrite Ql (U) Negative Normal NEGATIVE [facility] Comment on above: Performed By: #### E RUR #### [facility] [address] [place] [address] Dr. Hardeep Rivera pH (U) 7.0 [pH] Normal 5-9 [facility] Comment on above: Performed By: #### E RUR #### [facility] [address] [place] [address] Dr. Hardeep Rivera SPEC GRAVITY <=1.005 Abnormal 1.005-<=1.025 [facility] Comment on above: Performed By: #### E RUR #### [facility] [address] [place] [address] Dr. Hardeep Rivera UA PROTEIN Negative Normal NEGATIVE/ TRACE The [facility] Comment on above: Performed By: #### E RUR #### [facility] [address] [place] [address] [address] Hardeep Rivera UR MICRO IND NOT INDICATED Normal [facility] Comment on above: Performed By: #### E RUR #### [facility] [address] [place] [address] [address] Hardeep Rivera Urobilinogen Qn (U) 0.2 {Kevon'U}/dL Normal 0.2 - 1. 0 [facility] Comment on above: Performed By: #### E RUR #### [facility] [address] [place] [address] [address] Hardeep Rivera LIPASEon 08-04-2022 Lipase [Catalytic activity/Vol] 1486.0 U/L Critically high 73.0-393.0 [facility] Comment on above: Performed By: #### C MP LIPA, BRITTNEY ####[facility] [address] [place] [address]DrLaura Rivera PROF 14(COMP METB)on 022 Albumin [Mass/Vol] 3.6 g/dL Normal 3.4-5.0 [facility] Comment on above: Performed By: #### C MP, LIPA, BRITTNEY ####[facility] [address] [place] [address]DrLaura Rivera Albumin/Globulin [Mass ratio] 1.3 {ratio} Normal [facility] [place] [facility] Comment on above: Performed By: #### C MP, LIPA, BRITTNEY ####[facility] [address] [place] [address]DrLaura Rivera ALP [Catalytic activity/Vol] 171 U/L Critically high 46-116 [facility] [place] [facility] Comment on above: Performed By: #### C MP, LIPA, BRITTNEY ####[facility] [address] [place] [address]DrLaura Rivera ALT [Catalytic activity/Vol] 35 U/L Normal 14-59 [facility] Comment on above: Performed By: #### C MP LIPA, BRITTNEY ####[facility] [address] [place] [address]Dr. Hardeep Rivera Anion gap [Moles/Vol] 11.4 mmol/L Normal [facility] Comment on above: Performed By: #### C MP LIPA, BRITTNEY ####[facility] [address] [place] [address]Dr. Hardeep Rivera AST [Catalytic activity/Vol] 28 U/L Normal 15-37 [facility] Comment on above: Performed By: #### C MP LIPA, BRITTNEY ####[facility] [address] [place], [place] [address]Dr. Hardeep Rivera Bilirubin [Mass/Vol] 0.7 mg/dL Normal 0.2-1.0 [facility] Comment on above: Performed By: #### C MP LIPA, BRITTNEY ####[facility] [address] [place], [place] [address]Dr. Hardeep Rivera Calcium [Mass/Vol] 8.4 mg/dL Critically low 8.5-10.1 [facility] [place] [facility] Comment on above: Performed By: #### C ARGENIS LIPA, BRITTNEY ####[facility] [address] [place], [place] [address]Dr. Hardeep Rivera Chloride [Moles/Vol] 100 mmol/L Normal 98-107 [facility] Comment on above: Performed By: #### C MP LIPA, BRITTNEY ####[facility] [address] [place], [place] [address]Dr. Hardeep Rivera CO2 [Moles/Vol] 25.6 mmol/L Normal 21.0-32.0 The [facility] Comment on above: Performed By: #### C MP, LIPA, BRITTNEY ####[facility] [address] [place], [place] [address]Dr. Hardeep Rivera Creatinine [Mass/Vol] 1.33 mg/dL Critically high 0.55-1.02 [facility] Comment on above: Performed By: #### C MP, LIPA, BRITTNEY ####[facility] [address] [place], [place] [address]Dr. Hardeep Rivera EGFR-AF BURMESE 47 mL/min/1.73m2 Critically low >=60 [facility] Comment on above: Performed By: #### C ABAD MORE, BRITTNEY ####[facility] [address] [place] [address]Dr. Hardeep Rivera EGFR-NON AF BURMESE 39 mL/min/1.73m2 Critically low >=60 [facility] Comment on above: Performed By: #### C DERRELL MOREA, BRITTNEY ####[facility] [address] [place] [address]Dr. Hardeep Rivera Globulin (S) [Mass/Vol] 2.7 g/dL Normal [facility] Comment on above: Performed By: #### C DERRELL MOREA, BRITTNEY ####[facility] [address] [place] [address]Dr. Hardeep Rivera Glucose [Mass/Vol] 108 mg/dL Critically high 74-[address] [facility] Comment on above: Performed By: #### C DERRELL MOREA, BRITTNEY ####[facility] [address] [place] [address]Dr. Hardeep Rivera Potassium [Moles/Vol] 4.0 mmol/L Normal 3.5-5.1 [facility] Comment on above: Performed By: #### C DERRELL MOREA, BRITTNEY ####[facility] [address] [place] [address]Dr. Hardeep Rivera Protein [Mass/Vol] 6.3 g/dL Critically low 6.4-8.2 [facility] Comment on above: Performed By: #### C ARGENIS LIPA, BRITTNEY ####[facility] [address] [place] [address]Dr. Hardeep Rivera Sodium [Moles/Vol] 133 mmol/L Critically low 136-145 Th [facility] [place] [facility] Comment on above: Performed By: #### C ARGENIS LIPA, BRITTNEY ####[facility] [address] [place] [address]Dr. Haredep Rivera Urea nitrogen [Mass/Vol] 23.0 mg/dL Critically high 7.0-18.0 [facility] Comment on above: Performed By: #### C ABAD MORE, BRITTNEY ####[facility] [address] [place] [address]Dr. Hardeep Rivera Urea nitrogen/Creatinine [Mass ratio] 17.3 mg/mg Normal [facility] Comment on above: Performed By: #### C DERRELL MOREA, BRITTNEY ####[facility] [address] [place] [address]Dr. Hardeep Rivera BOX TEST SENT OUTon 08-02-20 22 SENT TO REF LAB 08/02/2022 Normal [facility] Comment on above: Performed By: #### Deedee PINON #### [facility] [address] [place] [address] Dr. Hardeep Rivera CBC AUTO DIFFon 08-02-2022 BASO # 0.0 103/ul Normal 0.0-0.1 [facility] Comment on above: Performed By: #### RANDALL OLSON #### [facility] [address] [place] [address] Dr. Hardeep Rivera Basophils/100 WBC (Bld) 0.3 % Normal 0.2-2.0 [facility] Comment on above: Performed By: #### RANDALL OLSON #### [facility] [address] [place] [address] Dr. Hardeep Rivera EO # 0.1 103/ul Normal 0.0-0.7 [facility] Comment on above: Performed By: #### RANADLL OLSON #### [facility] [address] [place] [address] Dr. Hardeep Rivera Eosinophils/100 WBC (Bld) 1.4 % Normal 0.9-7.0 [facility] Comment on above: Performed By: #### RANDALL OLSON #### [facility] [address] [place] [address] Dr. Hardeep Rivera Erythrocyte distribution width (RBC) [Ratio] 12.2 % Normal 11.0-15.0 [facility] Comment on above: Performed By: #### RANDALL OLSON #### [facility] [address] [address] [address] Hardeep Rivera Hematocrit (Bld) [Volume fraction] 41.2 % Normal 36.0-48.0 [facility] Comment on above: Performed By: #### E KATHRIN, UMICRO #### [facility] [address] [place] [address] Dr. Hardeep Rivera Hemoglobin (Bld) [Mass/Vol] 13.6 g/dL Normal 12.0-16.0 [facility] Comment on above: Performed By: #### Deedee PINON UMICRO #### [facility] [address] [place] [address] Dr. Hardeep Rivera IG # 0.02 10e3/ul Normal 0.00-0.03 [facility] Comment on above: Performed By: #### Deedee PINON UMICRO #### [facility] [address] [place] [address] Dr. Hardeep Rivera IG % 0.3 % Normal 0.0-0.5 [facility] Comment on above: Performed By: #### Deedee PINON UMICRO #### [facility] [address] [place] [address] Dr. Hardeep Rivera LYMPH # 0.6 103/ul Critically low 1.2-3.8 [facility] Comment on above: Performed By: #### Deedee PNION UMICRO #### [facility] [address] [place] [address] Dr. Hardeep Rivera Lymphocytes/100 WBC (Bld) 8.9 % Critically low 20.5-60.0 [facility] Comment on above: Performed By: #### Deedee PINON UMICRO #### [facility] [address] [place] [address] Dr. Hardeep Rivera MANUAL DIFF REQ NO [facility] Comment on above: Performed By: #### Deedee PINON, UMICRO #### [facility] [address] [place] [address] Dr. Hardeep Rivera MCH (RBC) [Entitic mass] 29.6 pg Normal 26.7-34.0 [facility] Comment on above: Performed By: #### RANDALL OLSON #### [facility] [address] [place] [address] Dr. Hardeep Rivera MCHC (RBC) [Mass/Vol] 33.0 g/dL Normal 29.9-35.2 [facility] Comment on above: Performed By: #### HARI OLSONRO #### [facility] [address] [place] [address] Dr. Hardeep Rivera MCV (RBC) [Entitic vol] 89.8 fL Normal 81.0-99.0 [facility] Comment on above: Performed By: #### RANDALL OLSON #### [facility] [address] [place] [address] Dr. Hardeep Rivera MONO # 0.7 103/ul Normal 0.3-0.8 [facility] Comment on above: Performed By: #### RANDALL OLSON #### [facility] [address] [place] [address] Dr. Hardeep Rivera Monocytes/100 WBC (Bld) 11.6 % Normal 1.7-12.0 [facility] Comment on above: Performed By: #### RANDALL OLSON #### [facility] [address] [place] [address] Dr. Hardeep Rivera NEUT # 5.0 103/ul Normal 1.4-6.5 [facility] Comment on above: Performed By: #### HARI OLSONRO #### [facility] [address] [place] [address] Dr. Hardeep Rivera Neutrophils/100 WBC (Bld) 77.5 % Critically high 43.0-75.0 [facility] Comment on above: Performed By: #### RANDALL OLSON #### [facility] [address] [place] [address] Dr. Hardeep Rivera Platelet mean volume (Bld) [Entitic vol] 9.4 fL Critically low 9.5-13.5 [facility] Comment on above: Performed By: #### E RUR, UMICRO #### [facility] [address] [place] [address] Dr. Hardeep Rivera PLT 200 103/ul Normal 150-450 [facility] Comment on above: Performed By: #### Deedee PINON, UMICRO #### [facility] Laboratory [address] [address] [address] Hardeep Rivera RBC 4.59 106/ul Normal 4.20-5.40 [facility] Comment on above: Performed By: #### Deedee PINON, UMICRO #### [facility] [address] [place] [address] Dr. Hardeep Rivera WBC 6.4 103/ul Normal 4.0-11.0 [facility] Comment on above: Performed By: #### Deedee PINON UMICRO #### [facility] [address] [place] [address] Dr. Hardeep Rivera PROF CHEM 8 (BAS METB)on Anion gap [Moles/Vol] 12.2 mmol/L Normal [facility] Comment on above: Performed By: #### Deedee PINON UMICRO #### [facility] [address] [place] [address] Dr. Hardeep Rivera Calcium [Mass/Vol] 8.6 mg/dL Normal 8.5-10.1 [facility] Comment on above: Performed By: #### Deedee PINON, UMICRO #### [facility] [address] [place] [address] Dr. Hardeep Rivera Chloride [Moles/Vol] 98 mmol/L Normal 98-107 [facility] Comment on above: Performed By: #### Deedee PINON, UMICRO #### [facility] [address] [place] [address] Dr. Hardeep Rivera CO2 [Moles/Vol] 27.7 mmol/L Normal 21.0-32.0 [facility] Comment on above: Performed By: #### Deedee PINON, UMICRO #### [facility] [address] [place] [address] Dr. Hardeep Rivera Creatinine [Mass/Vol] 1.42 mg/dL Critically high 0.55-1.02 [facility] Comment on above: Performed By: #### RANDALL OLSON #### [facility] [address] [place] [address] Dr. Hardeep Rivera EGFR-AF BURMESE 43 mL/min/1.73m2 Critically low >=60 [facility] Comment on above: Performed By: #### HARI OLSONRO #### [facility] [address] [place] [address] Dr. Hardeep Rivera EGFR-NON AF BURMESE 36 mL/min/1.73m2 Critically low >=60 [facility] Comment on above: Performed By: #### HARI OLSONRO #### [facility] [address] [place] [address] Dr. Hardeep Rivera Glucose [Mass/Vol] 119 mg/dL Critically high 74-[address] [facility] Comment on above: Performed By: #### HARI OLSONRO #### [facility] [address] [place] [address] Dr. Hardeep Rivera Potassium [Moles/Vol] 3.9 mmol/L Normal 3.5-5.1 [facility] Comment on above: Performed By: #### HARI OLSONRO #### [facility] [address] [place] [address] Dr. Hardeep Rivera Sodium [Moles/Vol] 134 mmol/L Critically low 136-145 [facility] Comment on above: Performed By: #### HARI OLSONRO #### [facility] [address] [place] [address] Dr. Hardeep Rivera Urea nitrogen [Mass/Vol] 21.0 mg/dL Critically high 7.0-18.0 [facility] Comment on above: Performed By: #### HARI OLSONRO #### [facility] [address] [place] [address] Dr. Hardeep Rivera Urea nitrogen/Creatinine [Mass ratio] 14.8 mg/mg Normal [facility] Comment on above: Performed By: #### RANDALL OLSON #### [facility] [address] [place] [address] Dr. Hardeep Rivera BOX TEST SENT OUTon 07-03-20 SENT TO REF LAB 07/03/2022 [facility] Comment on above: Performed By: #### RANDALL OLSON #### [facility] [address] [place] [address] Dr. Hardeep Rivera CBC AUTO DIFFon 07-03-2022 BASO # 0.0 103/ul Normal 0.0-0.1 [facility] Comment on above: Performed By: #### C BC #### [facility] [address] [place] [address] Dr. Hardeep Rivera Basophils/100 WBC (Bld) 0.3 % Normal 0.2-2.0 [facility] Comment on above: Performed By: #### C BC #### [facility] [address] [place] [address] Dr. Hardeep Rivera EO # 0.1 103/ul Normal 0.0-0.7 [facility] Comment on above: Performed By: #### C BC #### [facility] [address] [place] [address] Dr. Hardeep Rivera Eosinophils/100 WBC (Bld) 0.9 % Normal 0.9-7.0 [facility] Comment on above: Performed By: #### C BC #### [facility] [address] [place] [address] Dr. Hardeep Rivera Erythrocyte distribution width (RBC) [Ratio] 12.2 % Normal 11.0-15.0 [facility] Comment on above: Performed By: #### C BC #### [facility] [address] [place] [address] Dr. Hardeep Rivera Hematocrit (Bld) [Volume fraction] 42.3 % Normal 36.0-48.0 [facility] Comment on above: Performed By: #### C BC #### [facility] [address] [place] [address] Dr. Hardeep Rivera Hemoglobin (Bld) [Mass/Vol] 14.0 g/dL Normal 12.0-16.0 [facility] Comment on above: Performed By: #### C BC #### [facility] [address] [address] [address] Hardeep Rivera IG # 0.04 10e3/ul Critically high 0.00-0.03 [facility] Comment on above: Performed By: #### C BC #### [facility] [address] [address] [address] Hardeep Rivera IG % 0.5 % Normal 0.0-0.5 [facility] Comment on above: Performed By: #### C BC #### [facility] [address] [address] [address] Hardeep Rivera LYMPH # 0.8 103/ul Critically low 1.2-3.8 [facility] Comment on above: Performed By: #### C BC #### [facility] [address] [place] [address] Dr. Hardeep Rivera Lymphocytes/100 WBC (Bld) 10.9 % Critically low 20.5-60.0 [facility] Comment on above: Performed By: #### C BC #### [facility] [address] [address] [address] Hardeep Rivera MANUAL DIFF REQ NO [facility] Comment on above: Performed By: #### C BC #### [facility] [address] [place] [address] Dr. Hardeep Rivera MCH (RBC) [Entitic mass] 29.7 pg Normal 26.7-34.0 [facility] Comment on above: Performed By: #### C BC #### [facility] [address] [address] [address] Hardeep Rivera MCHC (RBC) [Mass/Vol] 33.1 g/dL Normal 29.9-35.2 [facility] Comment on above: Performed By: #### C BC #### [facility] [address] [address] [address] Hardeep Rivera MCV (RBC) [Entitic vol] 89.8 fL Normal 81.0-99.0 [facility] Comment on above: Performed By: #### C BC #### [facility] [address] [address] [address] Hardeep Rivera MONO # 0.9 103/ul Critically high 0.3-0.8 [facility] Comment on above: Performed By: #### C BC #### [facility] [address] [address] [address] Hardeep Rivera Monocytes/100 WBC (Bld) 11.1 % Normal 1.7-12.0 [facility] Comment on above: Performed By: #### C BC #### [facility] [address] [address] [address] Hardeep Rivera NEUT # 5.8 103/ul Normal 1.4-6.5 [facility] Comment on above: Performed By: #### C BC #### [facility] [address] [place] [address] Dr. Hardeep Rivera Neutrophils/100 WBC (Bld) 76.3 % Critically high 43.0-75.0 [facility] Comment on above: Performed By: #### C BC #### [facility] [address] [address] [address] Hardeep Rivera Platelet mean volume (Bld) [Entitic vol] 9.5 fL Normal 9.5-13.5 [facility] Comment on above: Performed By: #### C BC #### [facility] [address] [address] [address] Hardeep Rivera PLT 191 103/ul Normal 150-450 [facility] Comment on above: Performed By: #### C BC #### [facility] [address] [address] [address] Hardeep Rivera RBC 4.71 106/ul Normal 4.20-5.40 [facility] Comment on above: Performed By: #### C BC #### [facility] [address] [address] [address] Hardeep Rivera WBC 7.6 103/ul Normal 4.0-11.0 [facility] Comment on above: Performed By: #### C BC #### [facility] [address] [place] [address] Dr. Hardeep Rivera PROF CHEM 8 (BAS METB)on Anion gap [Moles/Vol] 12.9 mmol/L Normal [facility] Comment on above: Performed By: #### E COLLINSR UMICRO #### [facility] [address] [place] [address] Dr. Hardeep Rivera Calcium [Mass/Vol] 9.0 mg/dL Normal 8.5-10.1 [facility] Comment on above: Performed By: #### E RUR, UMICRO #### [facility] [address] [place] [address] Dr. Hardeep Rivera Chloride [Moles/Vol] 98 mmol/L Normal 98-107 [facility] Comment on above: Performed By: #### E KATHRIN UMICRO #### [facility] [address] [place] [address] Dr. Hardeep Rivera CO2 [Moles/Vol] 28.1 mmol/L Normal 21.0-32.0 [facility] Comment on above: Performed By: #### Deedee PINON UMICRO #### [facility] [address] [place] [address] Dr. Hardeep Rivera Creatinine [Mass/Vol] 1.64 mg/dL Critically high 0.55-1.02 [facility] Comment on above: Performed By: #### Deedee GUADALUPER, UMICRO #### [facility] [address] [place] [address] Dr. Hardeep Rivera EGFR-AF BURMESE 37 mL/min/1.73m2 Critically low >=60 [facility] Comment on above: Performed By: #### E KATHRIN, UMICRO #### [facility] [address] [place] [address] Dr. Hardeep Rivera EGFR-NON AF BURMESE 30 mL/min/1.73m2 Critically low >=60 [facility] Comment on above: Performed By: #### E RUR, UMICRO #### [facility] [address] [place] [address] Dr. Hardeep Rivera Glucose [Mass/Vol] 114 mg/dL Critically high 74-[address] [facility] Comment on above: Performed By: #### RANDALL OLSON #### [facility] [address] [address] [address] Hardeep Rivera Potassium [Moles/Vol] 4.0 mmol/L Normal 3.5-5.1 [facility] Comment on above: Performed By: #### RANDALL OLSON #### [facility] [address] [address] [address] Hardeep Rivera Sodium [Moles/Vol] 135 mmol/L Critically low 136-145 [facility] Comment on above: Performed By: #### RANDALL OLSON #### [facility] [address] [place] [address] Dr. Hardeep Rivera Urea nitrogen [Mass/Vol] 24.0 mg/dL Critically high 7.0-18.0 [facility] Comment on above: Performed By: #### RANDALL OLSON #### [facility] [address] [place] [address] Dr. Hardeep Rivera Urea nitrogen/Creatinine [Mass ratio] 14.6 mg/mg Normal [facility] Comment on above: Performed By: #### RANDALL OLSON #### [facility] [address] [place] [address] Dr. Hardeep Rivera MG MAMM SCREEN 3D TRISHA CADon 05-28-2022 MG MAMM SCREEN 3D TRISHA CAD Patient: SYLVIA HERRERA Exam Date: 05/28/2022 : 1945 Gender:F Ordering : DR TAO ROONEY . Admission #: [id number] Family : Order #: [id number] CLICK HERE TO VIEW EXAM RADIOLOGY REPORT [...] Treatments None Family Cancers None LOCATION: [facility] BREAST COMPOSITION: Heterogeneously dense,which [...] MD on 05/28/2022 at 10:20 Normal [facility] BOX TEST SENT OUTon 05-07-20 22 SENT TO REF LAB 05/07/2022 [facility] Comment on above: Performed By: #### HARI OLSONRO #### [facility] [address] [place] [address] Dr. Hardeep Rivera CBC AUTO DIFFon 05-07-2022 BASO # 0.0 103/ul Normal 0.0-0.1 [facility] Comment on above: Performed By: #### HARI OLSONRO #### [facility] [address] [place] [address] Dr. Hardeep Rivera Basophils/100 WBC (Bld) 0.4 % Normal 0.2-2.0 [facility] Comment on above: Performed By: #### AKSHAT OLSONICRO #### [facility] [address] [place] [address] Dr. Hardeep Rivera EO # 0.1 103/ul Normal 0.0-0.7 [facility] Comment on above: Performed By: #### AKSHAT OLSONICRO #### [facility] [address] [place] [address] Dr. Hardeep Rivera Eosinophils/100 WBC (Bld) 1.0 % Normal 0.9-7.0 [facility] Comment on above: Performed By: #### Deedee PINON UMICRO #### [facility] [address] [place] [address] Dr. Hardeep Rivera Erythrocyte distribution width (RBC) [Ratio] 12.6 % Normal 11.0-15.0 [facility] Comment on above: Performed By: #### RANDALL OLSON #### [facility] [address] [place] [address] Dr. Hardeep Rivera Hematocrit (Bld) [Volume fraction] 44.0 % Normal 36.0-48.0 [facility] Comment on above: Performed By: #### RANDALL OLSON #### [facility] [address] [place] [address] Dr. Hardeep Rivera Hemoglobin (Bld) [Mass/Vol] 14.0 g/dL Normal 12.0-16.0 [facility] Comment on above: Performed By: #### RANDALL OLSON #### [facility] [address] [place] [address] Dr. Hardeep Rivera IG # 0.02 10e3/ul Normal 0.00-0.03 [facility] Comment on above: Performed By: #### RANDALL OLSON #### [facility] [address] [place] [address] Dr. Hardeep Rivera IG % 0.3 % Normal 0.0-0.5 [facility] Comment on above: Performed By: #### RANDALL OLSON #### [facility] [address] [place] [address] Dr. Hardeep Rivera LYMPH # 0.6 103/ul Critically low 1.2-3.8 [facility] Comment on above: Performed By: #### HARI OLSONRO #### [facility] [address] [place] [address] Dr. Hardeep Rivera Lymphocytes/100 WBC (Bld) 8.2 % Critically low 20.5-60.0 [facility] Comment on above: Performed By: #### HARI OLSONRO #### [facility] [address] [place] [address] Dr. Hardeep Rivera MANUAL DIFF REQ NO Normal [facility] Comment on above: Performed By: #### HARI OLSONRO #### [facility] [address] [place] [address] Dr. Hardeep Rivera MCH (RBC) [Entitic mass] 29.4 pg Normal 26.7-34.0 [facility] Comment on above: Performed By: #### Deedee PINON UMICRO #### [facility] [address] [place] [address] Dr. Hardeep Rivera MCHC (RBC) [Mass/Vol] 31.8 g/dL Normal 29.9-35.2 [facility] Comment on above: Performed By: #### E KATHRIN, UMICRO #### [facility] [address] [place] [address] Dr. Hardeep Rivera MCV (RBC) [Entitic vol] 92.2 fL Normal 81.0-99.0 [facility] Comment on above: Performed By: #### Deedee PINON UMICRO #### [facility] [address] [place] [address] Dr. Hardeep Rivera MONO # 0.8 103/ul Normal 0.3-0.8 [facility] Comment on above: Performed By: #### Deedee PINON UMICRO #### [facility] [address] [place] [address] Dr. Hardeep Rivera Monocytes/100 WBC (Bld) 9.6 % Normal 1.7-12.0 [facility] Comment on above: Performed By: #### Deedee PIONN, UMICRO #### [facility] [address] [place] [address] Dr. Hardeep Rivera NEUT # 6.3 103/ul Normal 1.4-6.5 [facility] Comment on above: Performed By: #### Deedee PINON, UMICRO #### [facility] [address] [place] [address] Dr. Hardeep Rivera Neutrophils/100 WBC (Bld) 80.5 % Critically high 43.0-75.0 [facility] Comment on above: Performed By: #### Deedee PINON, UMICRO #### [facility] [address] [place] [address] Dr. Hardeep Rivera Platelet mean volume (Bld) [Entitic vol] 10.1 fL Normal 9.5-13.5 [facility] Comment on above: Performed By: #### RANDALL OLSON #### [facility] [address] [place] [address] Dr. Hardeep Rivera PLT 188 103/ul Normal 150-450 [facility] Comment on above: Performed By: #### RANDALL OLSON #### [facility] [address] [place] [address] Dr. Hardeep Rivera RBC 4.77 106/ul Normal 4.20-5.40 [facility] Comment on above: Performed By: #### HARI OLSONRO #### [facility] [address] [place] [address] Dr. Hardeep Rivera WBC 7.8 103/ul Normal 4.0-11.0 [facility] Comment on above: Performed By: #### HARI OLSONRO #### [facility] [address] [place] [address] Dr. Hardeep Rivera PROF CHEM 8 (BAS METB)on Anion gap [Moles/Vol] 11.9 mmol/L Normal [facility] Comment on above: Performed By: #### HARI OLSONRO #### [facility] [address] [place] [address] Dr. Hardeep Rivera Calcium [Mass/Vol] 8.7 mg/dL Normal 8.5-10.[address] [facility] Comment on above: Performed By: #### HARI OLSONRO #### [facility] [address] [place] [address] Dr. Hardeep Rivera Chloride [Moles/Vol] 99 mmol/L Normal 98-107 [facility] Comment on above: Performed By: #### HARI OLSONRO #### [facility] [address] [place] [address] Dr. Hardeep Rivera CO2 [Moles/Vol] 27.1 mmol/L Normal 21.0-32.0 [facility] Comment on above: Performed By: #### HARI OLSONRO #### [facility] [address] [address] [address] Hardeep Rivera Creatinine [Mass/Vol] 1.62 mg/dL Critically high 0.55-1.02 [facility] Comment on above: Performed By: #### E RUR, UMICRO #### [facility] [address] [place] [address] Dr. Hardeep Rivera EGFR-AF BURMESE 37 mL/min/1.73m2 Critically low >=60 [facility] Comment on above: Performed By: #### E RUR, UMICRO #### [facility] [address] [place] [address] Dr. Hardeep Rivera EGFR-NON AF BURMESE 31 mL/min/1.73m2 Critically low >=60 [facility] Comment on above: Performed By: #### E COLLINSR UMICRO #### [facility] [address] [place] [address] Dr. Hardeep Rivera Glucose [Mass/Vol] 73 mg/dL Critically low 74-106 [facility] Comment on above: Performed By: #### E KATHRIN UMICRO #### [facility] [address] [place] [address] Dr. Hardeep Rivera Potassium [Moles/Vol] 4.0 mmol/L Normal 3.5-5.1 [facility] Comment on above: Performed By: #### E KATHRIN, UMICRO #### [facility] [address] [address] [address] Hardeep Rivera Sodium [Moles/Vol] 134 mmol/L Critically low 136-145 [facility] Comment on above: Performed By: #### E COLLINSR, UMICRO #### [facility] [address] [place] [address] Dr. Hardeep Rivera Urea nitrogen [Mass/Vol] 33.0 mg/dL Critically high 7.0-18.0 [facility] Comment on above: Performed By: #### E COLLINSR, UMICRO #### [facility] [address] [place] [address] Dr. Hardeep Rivera Urea nitrogen/Creatinine [Mass ratio] 20.4 mg/mg Normal [facility] Comment on above: Performed By: #### RANDALL OLSON #### [facility] [address] [place] [address] Dr. Hardeep Rivera BOX TEST SENT OUTon 04-24-20 22 SENT TO REF LAB 04/24/2022 [facility] Comment on above: Performed By: #### RANDALL OLSON #### [facility] [address] [place] [address] Dr. Hardeep Rivera FK506 (TACROLIMUS) WHOLE BLO ODon 04-11-2022 Tacrolimus (FK506), Blood 7.3 ng/mL Normal 2.0-20.0 [facility] Comment on above: Result Comment: Trou gh (immediately following transplant) 15.0 . Trough (steady state, 2 weeks or more after transplant): 3.0 - 8.0 . Performed by LC-MS/MS technology. Performed By: #### RANDALL OLSON #### [facility] [address] [place] [address] Dr. Hardeep Rivera BOX TEST SENT OUTon 04-09-20 22 SENT TO REF LAB 04/09/2022 Normal [facility] Comment on above: Performed By: #### RANDALL OLSON #### [facility] [address] [place] [address] Dr. Hardeep Rivera CBC AUTO DIFFon 04-09-2022 BASO # 0.0 103/ul Normal 0.0-0.1 [facility] Comment on above: Performed By: #### HARI OLSONRO #### [facility] [address] [place] [address] Dr. Hardeep Rivera Basophils/100 WBC (Bld) 0.1 % Critically low 0.2-2.0 [facility] Comment on above: Performed By: #### HARI OLSONRO #### [facility] [address] [place] [address] Dr. Hardeep Rivera EO # 0.1 103/ul Normal 0.0-0.7 [facility] Comment on above: Performed By: #### RANDALL OLSON #### [facility] [address] [place] [address] Dr. Hardeep Rivera Eosinophils/100 WBC (Bld) 1.2 % Normal 0.9-7.0 [facility] Comment on above: Performed By: #### RANDALL OLSON #### [facility] [address] [place] [address] Dr. Hardeep Rivera Erythrocyte distribution width (RBC) [Ratio] 12.6 % Normal 11.0-15.0 [facility] Comment on above: Performed By: #### HARI OLSONRO #### [facility] [address] [place] [address] Dr. Hardeep Rivera Hematocrit (Bld) [Volume fraction] 44.1 % Normal 36.0-48.0 [facility] Comment on above: Performed By: #### HARI OLSONRO #### [facility] [address] [place] [address] Dr. Hardeep Rivera Hemoglobin (Bld) [Mass/Vol] 14.1 g/dL Normal 12.0-16.0 [facility] Comment on above: Performed By: #### HARI OLSONRO #### [facility] [address] [place] [address] Dr. Hardeep Rivera IG # 0.02 10e3/ul Normal 0.00-0.03 [facility] Comment on above: Performed By: #### HARI OLSONRO #### [facility] [address] [place] [address] Dr. Hardeep Rivera IG % 0.3 % Normal 0.0-0.5 [facility] Comment on above: Performed By: #### HARI OLSONRO #### [facility] [address] [place] [address] Dr. Hardeep Rivera LYMPH # 0.7 103/ul Critically low 1.2-3.8 [facility] Comment on above: Performed By: #### HARI OLSONRO #### [facility] [address] [place] [address] Dr. Hardeep Rivera Lymphocytes/100 WBC (Bld) 10.8 % Critically low 20.5-60.0 [facility] Comment on above: Performed By: #### AKSHAT OLSONICRO #### [facility] [address] [place] [address] Dr. Hardeep Rivera MANUAL DIFF REQ NO Normal [facility] Comment on above: Performed By: #### Deedee PINON UMICRO #### [facility] [address] [place] [address] Dr. Hardeep Rivera MCH (RBC) [Entitic mass] 29.3 pg Normal 26.7-34.0 [facility] Comment on above: Performed By: #### Deedee PINON UMICRO #### [facility] [address] [place] [address] Dr. Hardeep Rivera MCHC (RBC) [Mass/Vol] 32.0 g/dL Normal 29.9-35.2 [facility] Comment on above: Performed By: #### Deedee PINON ICRO #### [facility] [address] [place] [address] Dr. Hardeep Rivera MCV (RBC) [Entitic vol] 91.7 fL Normal 81.0-99.0 [facility] Comment on above: Performed By: #### Deedee PINON ICRO #### [facility] [address] [place] [address] Dr. Hardeep Rivera MONO # 0.7 103/ul Normal 0.3-0.8 [facility] Comment on above: Performed By: #### Deedee PINON ICRO #### [facility] [address] [place] [address] Dr. Hardeep Rivera Monocytes/100 WBC (Bld) 10.8 % Normal 1.7-12.0 [facility] Comment on above: Performed By: #### Deedee PINON UMICRO #### [facility] [address] [place] [address] Dr. Hardeep Rivera NEUT # 5.2 103/ul Normal 1.4-6.5 [facility] Comment on above: Performed By: #### AKSHAT OLSONICRO #### [facility] [address] [place] [address] Dr. Hardeep Rivera Neutrophils/100 WBC (Bld) 76.8 % Critically high 43.0-75.0 [facility] Comment on above: Performed By: #### Deedee PINON UMICRO #### [facility] [address] [place] [address] Dr. Hardeep Rivera Platelet mean volume (Bld) [Entitic vol] 9.8 fL Normal 9.5-13.5 [facility] Comment on above: Performed By: #### Deedee PINON UMICRO #### [facility] [address] [place] [address] Dr. Hardeep Rivera PLT 200 103/ul Normal 150-450 [facility] Comment on above: Performed By: #### Deedee PINON UMICRO #### [facility] [address] [place] [address] Dr. Hardeep Rivera RBC 4.81 106/ul Normal 4.20-5.40 [facility] Comment on above: Performed By: #### Deedee PINON UMICRO #### [facility] [address] [place] [address] Dr. Hardeep Rivera WBC 6.7 103/ul Normal 4.0-11.0 [facility] Comment on above: Performed By: #### Deedee PINON UMICRO #### [facility] [address] [place] [address] Dr. Hardeep Rivera PROF CHEM 8 (BAS METB)on Anion gap [Moles/Vol] 9.1 mmol/L Normal [facility] Comment on above: Performed By: #### Deedee PINON UMICRO #### [facility] [address] [place] [address] Dr. Hardeep Rivera Calcium [Mass/Vol] 8.3 mg/dL Critically low 8.5-10.1 [facility] [place] [facility] Comment on above: Performed By: #### Deedee PINON UMICRO #### [facility] [address] [place] [address] Dr. Hardeep Rivera Chloride [Moles/Vol] 100 mmol/L Normal 98-107 [facility] Comment on above: Performed By: #### HARI OLSONRO #### [facility] [address] [place] [address] Dr. Hardeep Rivera CO2 [Moles/Vol] 28.1 mmol/L Normal 21.0-32.0 [facility] Comment on above: Performed By: #### Deedee PINON UMICRO #### [facility] [address] [place] [address] Dr. Hardeep Rivera Creatinine [Mass/Vol] 1.54 mg/dL Critically high 0.55-1.02 [facility] Comment on above: Performed By: #### Deedee PNION UMICRO #### [facility] [address] [place] [address] Dr. Hardeep Rivera EGFR-AF BURMESE 40 mL/min/1.73m2 Critically low >=60 [facility] Comment on above: Performed By: #### Deedee PINON UMICRO #### [facility] [address] [place] [address] Dr. Hardeep Rivera EGFR-NON AF BURMESE 33 mL/min/1.73m2 Critically low >=60 [facility] Comment on above: Performed By: #### Deedee PINON UMICRO #### [facility] [address] [place] [address] Dr. Hardeep Rivera Glucose [Mass/Vol] 122 mg/dL Critically high 74-106 [facility] Comment on above: Performed By: #### Deedee PINON, UMICRO #### [facility] [address] [place] [address] Dr. Hardeep Rivera Potassium [Moles/Vol] 4.2 mmol/L Normal 3.5-5.1 [facility] Comment on above: Performed By: #### Deedee PINON, UMICRO #### [facility] [address] [place] [address] Dr. Hardeep Rivera Sodium [Moles/Vol] 133 mmol/L Critically low 136-145 [facility] [place] [facility] Comment on above: Performed By: #### E HARI PINONRO #### [facility] [address] [place], [place] [address] Dr. Hardeep Rivera Urea nitrogen [Mass/Vol] 28.0 mg/dL Critically high 7.0-18.0 [facility] Comment on above: Performed By: #### Deedee PINON, HARIRO #### [facility] [address] [place], [place] [address] Dr. Hardeep Rivera Urea nitrogen/Creatinine [Mass ratio] 18.2 mg/mg Normal [facility] Comment on above: Performed By: #### Deedee PINON, HARIRO #### [facility] [address] [place], [place] [address] Dr. Hardeep Rivera Vital Signs Date Time Vital Sign Value Performing Clinician Zunildai litjaylen 06-26-2025 07:40-0400 Body temperature 98.01 [degF] Komal Clement MD Work Phone: [employer] 06-26-2025 07:40-0400 Diastolic blood pressure 74 mm[Hg] Komal Clement MD Work Phone: [employer] 06-26-2025 07:40-0400 Heart rate 71 /min Komal Clement MD Work Phone: [employer] 06-26-2025 07:40-0400 Respiratory rate 18 /min Komal Clement MD Work Phone: [employer] 06-26-2025 07:40-0400 SaO2% (BldA) [Mass fraction] 100 % Komal Clement MD Work Phone: [employer] 06-26-2025 07:40-0400 Systolic blood pressure 140 mm[Hg] Komal Clement MD Work Phone: [employer] 06-26-2025 04:48-0400 Body mass index (BMI) [Ratio] 18.38 kg/m2 Komal Clement MD Work Phone: [employer] 06-26-2025 04:48-0400 Body weight 45.59 kg Komal Clement MD Work Phone: [facility] 06-23-2025 08:26-0400 Body height 157.5 cm Komal Clement MD Work Phone: [facility] 05-30-2025 08:21-0400 Body temperature 96.69 [degF] Blanca Barnhart MD Work Phone: [facility] 05-30-2025 08:21-0400 Diastolic blood pressure 82 mm[Hg] Blanca Barnhart MD Work Phone: [facility] 05-30-2025 08:21-0400 Heart rate 78 /min Blanca Barnhart MD Work Phone: [facility] 05-30-2025 08:21-0400 Respiratory rate 18 /min Blanca Barnhart MD Work Phone: [facility] 05-30-2025 08:21-0400 SaO2% (BldA) [Mass fraction] 100 % Blanca Barnhart MD Work Phone: [facility] 05-30-2025 08:21-0400 Systolic blood pressure 149 mm[Hg] Blanca Barnhart MD Work Phone: [facility] 05-30-2025 05:12-0400 Body mass index (BMI) [Ratio] 19.7 kg/m2 Blanca Barnhart MD Work Phone: [facility] 05-30-2025 05:12-0400 Body weight 48.85 kg Blanca Barnhart MD Work Phone: [facility] 05-29-2025 06:38-0400 Body height 157.5 cm Blanca Barnhart MD Work Phone: [facility] 04-08-2023 06:45-0400 Diastolic blood pressure 76 mm[Hg] Richard Ca [facility] 04-08-2023 06:45-0400 Heart rate 59 /min Richard Roby [facility] 04-08-2023 06:45-0400 Hourly Rounding Richard Roby [facility] 04-08-2023 06:45-0400 Mean blood pressure 106 mm[Hg] Richard Roby [facility] 04-08-2023 06:45-0400 Respiratory rate 18 /min Richard Roby [facility] 04-08-2023 06:45-0400 SaO2% (BldA) [Mass fraction] 96 % Richard Roby [facility] 04-08-2023 06:45-0400 Systolic blood pressure 167 mm[Hg] Richard Roby [facility] 04-08-2023 05:30-0400 Diastolic blood pressure 88 mm[Hg] Richard Roby [facility] 04-08-2023 05:30-0400 Heart rate 52 /min Richard Roby [facility] 04-08-2023 05:30-0400 Hourly Rounding Richard Roby [facility] 04-08-2023 05:30-0400 Mean blood pressure 114 mm[Hg] Richard Roby [facility] 04-08-2023 05:30-0400 Respiratory rate 18 /min Richard Roby [facility] 04-08-2023 05:30-0400 SaO2% (BldA) [Mass fraction] 95 % Richard Roby [facility] 04-08-2023 05:30-0400 Systolic blood pressure 167 mm[Hg] Richard Roby [facility] 04-08-2023 04:39-0400 Diastolic blood pressure 90 mm[Hg] Richard Roby [facility] 04-08-2023 04:39-0400 Heart rate 56 /min Richard Roby [facility] 04-08-2023 04:39-0400 Hourly Rounding Richard Roby [facility] 04-08-2023 04:39-0400 Mean blood pressure 112 mm[Hg] Richard Roby [facility] 04-08-2023 04:39-0400 Respiratory rate 17 /min Richard Roby [facility] 04-08-2023 04:39-0400 SaO2% (BldA) [Mass fraction] 94 % Richard Roby [facility] 04-08-2023 04:39-0400 Systolic blood pressure 155 mm[Hg] Richard Roby [facility] 04-07-2023 21:48-0400 Respiratory rate 18 /min Richard Roby [facility] 04-07-2023 21:19-0400 Body temperature 98.06 [degF] Richard Roby [facility] 04-07-2023 21:19-0400 Heart rate 65 /min Richard Roby [facility] 04-07-2023 21:19-0400 Respiratory rate 19 /min Richard Roby [facility] Encounters Encounter Date Encounter Type Care Provider Facility Start: 08-11-2025 ambulatory Josse Burch MD Faci lity:[facility] Start: 07-12-2025 ambulatory TAO M HOY [facility] Start: 07-06-2025 End: 07-06-2025 ambulatory Tao Rooney MD Facility:[facility] Start: 06-22-2025 End: 06-26-2025 Evaluation and management of inpatient Komal Clement MD Work Phone: [facility] Comment on above: Hypocalcemia (Primar y Dx); Hypomagnesemia; Acute kidney injury superimposed on CKD; Skin lesion of right leg; Acute renal failure, unspecified acute renal failure type; Anemia, unspecified type Start: 06-22-2025 End: 06-24-2025 ambulatory SHOLA NORMAN [facility] Start: 06-22-2025 End: 06-24-2025 Subsequent hospital visit by physician aMrcela Morales [facility] Comment on above: CKD (chronic kidney disease) stage 5, GFR less than 15 ml/min ([facility]); Hyperkalemia; Metabolic acidosis; Hypertensive renal disease, stage 1 through stage 4 or unspecified chronic kidney disease Start: 06-21-2025 End: 06-21-2025 ambulatory [facility] Start: 06-07-2025 End: 06-07-2025 ambulatory BLANCA BARNHART [facility] Start: 06-07-2025 End: 06-07-2025 Subsequent hospital visit by physician Tao Rooney MD Work Phone: [facility] Comment on above: Acute kidney injury superimposed on chronic kidney disease Start: 05-28-2025 End: 05-30-2025 Evaluation and management of inpatient Blanca Barnhart MD Work Phone: [facility] Comment on above: Acute kidney injury superimposed on chronic kidney disease (Primary Dx); Anxiety Start: 02-26-2025 End: 02-26-2025 Telephone encounter Magy Hui [facility] Ophthalmology Comment on above: Appointment (With Dr Vu) Start: 02-12-2025 End: 02-12-2025 ambulatory Sho Izaguirre APRN.CELL LEAD Work Phone: Cardiology Comment on above: transplant labs Start: 02-12-2025 End: 02-12-2025 E-mail encounter from caregiver Sho Izaguirre DUSTY.CELL LEAD Work Phone: Cardiology Start: 02-05-2025 End: 02-05-2025 ambulatory [facility] Start: 01-26-2025 End: 01-26-2025 Telephone encounter Tram Fishman APRN.CELL LEAD Work Phone: Cardiology Comment on above: Medication Problem ( Attempted to call pt 01/26 x2 after hospital discharge to clarify Tacrolimus dosing of 0.5mg BID and Cellcept dosing of 500mg BID, to schedule f/u in [place] per consult note. Patient did not answer, attempted to call friend without answer. Got in touch with daughter Ana who lives in [place]. She will relay these dosing clarifications to her mother today. States they are attempting to move her to low income housing closer to 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, unspecified whether continuous churn buttermaker insulin use (HCC); Posterior vitreous detachment of both eyes Start: 01-18-2025 End: 01-21-2025 Telephone encounter Neurology Provider Neurology Comment on above: Future Appointment ( Kye Wilson) Start: 01-18-2025 Evaluation and manag ement of inpatient MARLYNJOHN PAUL TRISTANRUBANADIR Facility:[facility] Start: 01-18-2025 End: 01-18-2025 Evaluation and management of inpatient Marlyn Tristanaona PA-C Work Phone: Ophthalmology Comment on above: Neovascular glaucoma of left eye, severe stage (Primary Dx); Pseudophakia Start: 01-13-2025 End: 01-13-2025 Evaluation and management of inpatient TAO M HOY Facility:[facility] Start: 01-12-2025 End: 01-12-2025 Evaluation and management of inpatient TAO M HOY Facility:[facility] Start: 01-12-2025 End: 01-12-2025 Unlisted evaluation and management service [facility] Work Phone: Ophthalmology Comment on above: Neovascular glaucoma of left eye, severe stage (Primary Dx); Traumatic optic neuropathy; Pseudophakia Start: 01-11-2025 End: 01-25-2025 Evaluation and management of inpatient TAO ROONEY Facility:[facility] Start: 01-09-2025 Evaluation and manag ement of inpatient JERAD Yoo [facility] Start: 01-09-2025 [facility] Start: 01-09-2025 Evaluation and manag ement of inpatient CARLOS M [facility] Start: 01-08-2025 Evaluation and manag ement of inpatient CARLOS M [facility] Start: 01-08-2025 End: 01-10-2025 Evaluation and management of inpatient JERAD Yoo [facility] Start: 12-28-2024 End: 12-28-2024 Refill Loida Mathias APRN.CNP Work Phone: [facility] Comment on above: Refill Request Start: 10-09-2024 End: 10-09-2024 ambulatory González Shanks Facility:[facility] [place] [facility] Start: 10-09-2024 End: 10-09-2024 Patient encounter procedure González Shanks [facility] Start: 09-14-2024 End: 09-14-2024 ambulatory [facility] Start: 07-01-2024 End: 07-01-2024 ambulatory [facility] Start: 06-18-2024 End: 06-18-2024 ambulatory NON STAFF [facility] Work Phone: Start: 06-18-2024 End: 06-18-2024 Departed Referred [facility] Start: 04-07-2023 End: 04-08-2023 Emergency department patient visit Richard Ca [facility] Start: 03-05-2023 End: 03-05-2023 ambulatory SCOT [...] ROGERS Facility:[facility] Start: 09-08-2022 Refill Sandrita Santana APRN.CELL LEAD Work Phone: Cardiology Comment on above: Refill Request Start: 08-04-2022 End: 08-04-2022 ambulatory NANCY REYES . Facility:[facility] Start: 08-02-2022 Telephone encounter Loida Mathias APRN.CELL LEAD Work Phone: Cardiology Comment on above: Heart Transplant Fol low Up (Labs/) Start: 08-02-2022 End: 08-03-[address] TAO ROONEY . Facility:[facility] Start: 07-27-[address] TAO ROONEY . Facili ty:[facility] Start: 07-16-2022 End: 07-16-2022 Patient encounter procedure Eddie VERAS [facility] Start: 07-05-2022 Telephone encounter Sho Izaguirre APRN.CELL LEAD Work Phone: Cardiology Comment on above: Heart Transplant Fol low Up; Lab Meeting Start: 07-03-2022 Telephone encounter Carmelita Bateman RN Ca rdiology Comment on above: Heart Transplant Fol low Up (labs) Start: 07-03-2022 End: 07-04-[address] TAO ROONEY . Facility:[facility] Start: 05-28-2022 End: 05-29-[address] TAO ROONEY . Facility:[facility] Start: 05-08-2022 Telephone encounter Loida Mathias APRN.CELL LEAD Work Phone: Cardiology Comment on above: Heart Transplant Fol low Up (labs) Start: 05-07-2022 End: 05-08-[address] TAO ROONEY . Facility:[facility] Start: 04-24-2022 Telephone encounter Loida Mathias APRN.CELL LEAD Work Phone: Cardiology Comment on above: Heart Transplant Fol low Up Start: 04-24-2022 End: 04-25-[address] TAO ROONEY . Facility:[facility] Start: 04-20-[address] TAO ROONEY . Facili ty:[facility] Start: 04-11-2022 ambulatory Loida Mathias APRN.CELL LEAD Work Phone: [facility] Start: 04-11-2022 Follow-up encounter Loida Mathias APRN.CELL LEAD Work Phone: Cardiology Comment on above: Heart Transplant Fol low Up (Labs) Start: 04-09-2022 End: 04-10-[address] TAO ROONEY . Facility:[facility] Start: 04-06-2022 Orders Only Loida Mathias APRN.CELL LEAD Work Phone: Cardiology Comment on above: Heart replaced by tr ansplant (HCC) (Primary Dx) Start: 04-04-2022 Refill Loida Mathias APRN.CELL LEAD Work Phone: Cardiology Comment on above: Rx Refills Procedures Date Procedure Procedure Detail Performing Clinician Start: 06-26-2025 Rhythm ecg 1-3 leads w/interpretation & report Unknown Provider Result Start: 06-26-2025 Basic metabolic pane l calcium total Shola Norman MD Work Phone: Start: 06-26-2025 Hepatic function panel Tolu Barba [employer] - CELL LEAD Work Phone: Start: 06-25-2025 Basic metabolic pane l calcium total Shola Norman MD Work Phone: Start: 06-25-2025 End: 06-26-2025 Rhythm ecg 1-3 leads w/interpretation & report Unknown Provider Result Start: 06-24-2025 End: 06-24-2025 Basic metabolic panel calcium total Shola Norman MD Work Phone: Start: 06-24-2025 Antibody screen Komal tong MD Work Phone: Start: 06-23-2025 Assay of magnesium Thad k Allyssa MCDANIELS Work Phone: Start: 06-23-2025 Chloride urine Shola Ag kindra MCDANIELS Work Phone: Start: 06-23-2025 Fat/lipids feces qualitative Derian Hoover MD Work Phone: Start: 06-23-2025 Iaad ia giardia Derian Hoover MD Work Phone: Start: 06-23-2025 Blood typing serologic abo Tolu Barba HOME THEATER EXPERT - CELL LEAD Work Phone: Start: 06-23-2025 End: 06-24-2025 Rhythm ecg 1-3 leads w/interpretation & report Unknown Provider Result Start: 06-23-2025 Assay of ferritin Lizzy Barba HOME THEATER EXPERT - CELL LEAD Work Phone: Start: 06-22-2025 Ct lower extremity w /o contrast material Derian Hoover MD Work Phone: Start: 06-22-2025 Rhythm ecg 1-3 leads w/interpretation & report Unknown Provider Result Start: 06-22-2025 Assay of amylase Derian Hoover MD Work Phone: Start: 06-22-2025 End: 06-22-2025 Comprehensive metabolic panel Komal Clement MD Work Phone: Start: 06-22-2025 Ecg routine ecg w/le ast 12 lds i&r only Komal Clement MD Work Phone: Start: 06-22-2025 Us retroperitoneal r eal time w/image complete Shola Norman MD Work Phone: Start: 06-22-2025 Basic metabolic pane l calcium total Shola Norman MD Work Phone: Start: 06-22-2025 Urinalysis microscop ic only Shola Norman MD Work Phone: Start: 06-22-2025 Urnls dip stick/tabl et rgnt auto w/o microscopy Shola Norman MD Work Phone: Start: 06-07-2025 Comprehensive metabo lic panel Blanca Barnhart MD Work Phone: Start: 05-30-2025 Blood count complete auto&auto difrntl wbc Blanca Barnhart MD Work Phone: Start: 05-29-2025 Basic metabolic pane l calcium total Blanca Barnhart MD Work Phone: Start: 05-29-2025 H/O: heart recipient History o f heart transplant Blanca Barnhart MD Work Phone: Start: 05-29-2025 Blood count complete auto&auto difrntl wbc Blanca Barnhart MD Work Phone: Start: 05-28-2025 Intermittent pulse oximetry Blanca Barnhart MD Work Phone: Start: 05-28-2025 Comprehensive metabo lic panel Mike Castillo PA-C Work Phone: Start: 05-28-2025 Urinalysis microscop ic only Mike Castillo PA-C Work Phone: Start: 05-28-2025 Urnls dip stick/tabl et rgnt auto w/o microscopy Mike Castillo PA-C Work Phone: Start: 05-28-2025 Us retroperitoneal r eal time w/image complete Yue Jordan Phuc DO Work Phone: Start: 01-24-2025 Antibody screen ANDREZ TAYLOR Comment on above: Order Comment: Speci men Type: BLOOD SPECIMENOrdering Facility: [facility] Address: [address] [place] [address] Performed By: #### T SCR ####CC MAIN BLOOD BANKCLIA [id number] [address] Start: 01-20-2025 End: 01-20-2025 Computerized ophthalmic imaging retina Marlyn Taylor PA-C Work Phone: Start: 01-15-2025 Antibody screen ANDREZ TAYLOR Comment on above: Order Comment: Speci men Type: BLOOD SPECIMENOrdering Facility: [facility] Address: [address] [place] [address] Performed By: #### T SCR ####CC MAIN BLOOD BANKCLIA [id number] [address] [place] Start: 01-13-2025 Echocardiography MONALISA TAYLOR Start: 01-12-2025 Gluc bld gluc mntr d ev cleared fda spec home use [facility] Provider Start: 01-11-2025 Antibody screen ANDREZ TAYLOR Comment on above: Order Comment: Speci men Type: BLOOD SPECIMENOrdering Facility: [facility] Address: [address] [place] [address] Performed By: #### T SCR ####CC MAIN BLOOD BANKCLIA [id number] [address] OF [place] Start: 12-21-2016 H/O: heart recipient Heart transplan arianna Barnhart MD Work Phone: Start: 08-10-2013 H/O: heart recipient Heart transplan arianna Loida Mathias APRN.CELL LEAD Work Phone: Start: 03-19-2006 End: 08-12-2013 H/O: heart recipient Heart replaced by transplant Loida Mathias APRN.CELL LEAD Work Phone: H/O: heart recipient Heart trans planted (HCC) Loida Gustafsonrino HOME THEATER EXPERT.CELL LEAD Work Phone: H/O: heart recipient Heart repla nitish by transplant (HCC) Loida Mathias HOME THEATER EXPERT.CELL LEAD Work Phone: H/O: heart recipient Heart trans planted (HCC) Loida Gustafsonrino HOME THEATER EXPERT.CELL LEAD Work Phone: H/O: heart recipient Heart trans planted (HCC) Loida Mathias HOME THEATER EXPERT.CELL LEAD Work Phone: H/O: heart recipient Heart trans planted (HCC) Sho Izaguirre APRN.CELL LEAD Work Phone: H/O: heart recipient Hx of heart transplant( Confirmed ) Morgan RITO H/O: heart recipient Heart repla nitish by transplant (HCC) Sho Izaguirre APRN.CELL LEAD Work Phone: H/O: heart recipient History of heart transplant (HCC) Blanca Barnhart MD Work Phone: H/O: heart recipient History of heart transplant (HCC) Komal Clement MD Work Phone: Plan of Treatment Date Care Activity Detail Author Start: 02-09-2031 DTaP/Tdap/Td vaccine (2 - Tdap) DTaP/Tdap/Td vaccine (2 - Tdap) [facility] Start: 02-09-2031 Urine microalbumin profile DTaP,Tdap,Td Vaccine (2 - Tdap) [facility] Start: 01-25-2026 Complete blood count Hemoglobin/Noah tocrit [facility] Start: 01-25-2026 Creatinine measurement Serum Creatin ine [facility] Start: 01-21-2026 Complete blood count Hemoglobin/Noah tocrit [facility] Start: 01-21-2026 Creatinine measurement Serum Creatin ine [facility] Start: 01-20-2026 Glaucoma screening Dilated Retinal E m [facility] Start: 01-18-2026 Complete blood count Hemoglobin/Noah [facility] Start: 01-18-2026 Creatinine measurement Serum Creatin ine [facility] Start: 01-12-2026 Complete blood count Hemoglobin/Noah [facility] Start: 01-12-2026 Creatinine measurement Serum Creatin ine [facility] Start: 01-12-2026 Glaucoma screening Dilated Retinal E [facility] Start: 07-20-2025 End: 07-20-2025 Patient encounter procedure 07/20/2025 11:40 AM EDT Office Visit [facility] [address] [place], [place] [id number] Shola Norman MD [address] [place], [place] [id number] Acute kidney injury superimposed on chronic kidney disease, 2 weeks f/u with labs/ US [facility] Comment on above: Acute kidney injury superimposed on chronic kidney disease, 2 weeks f/u with labs/ US Start: 07-03-2025 End: 06-26-2026 CBC W Auto Differential panel - Blood CBC with Auto Differential Lab Routine Anemia, unspecified type Expected: 07/03/2025, Expires: 06/26/2026 [facility] Comment on above: Expected: 07/03/2025 , Expires: 06/26/2026 Start: 07-03-2025 End: 06-26-2026 Comprehensive metabolic 2000 panel - Serum or Plasma Comprehensive Metabolic Panel Lab Routine Acute renal failure, unspecified acute renal failure type Expected: 07/03/2025, Expires: 06/26/2026 [facility] Comment on above: Expected: 07/03/2025 , Expires: 06/26/2026 Start: 07-02-2025 Influenza vaccination B on [facility] Start: 06-18-2025 End: 06-18-2025 Patient encounter procedure 06/18/2025 11:40 AM EDT Office Visit [facility] [address] [place] [address] Shola Norman MD [address] [facility] [address] [place] [id number] Acute kidney injury superimposed on chronic kidney disease-Dr Barnhart wanted patient seen sooner. [facility] Comment on above: Acute kidney injury superimposed on chronic kidney disease-Dr Barnhart wanted patient seen sooner. Start: 06-06-2025 End: 05-30-2026 Comprehensive metabolic 2000 panel - Serum or Plasma Comprehensive Metabolic Panel Lab Routine Acute kidney injury superimposed on chronic kidney disease Expected: 06/06/2025, Expires: 05/30/2026 [facility] Comment on above: Expected: 06/06/2025 , Expires: 05/30/2026 Start: 05-31-2025 Annual Wellness Visi t (Medicare) Annual Wellness Visit (Medicare) [facility] Start: 04-07-2025 End: 04-07-2025 Patient encounter procedure 04/07/2025 1:00 PM EDT Office Visit [facility] [address] [place] [address] Ry Vu MD [address] [place] [address] 02/26/2025 See phone encounter for changing this appt per [facility] Comment on above: 02/26/2025 See phone encounter for changing this appt per [facility] Start: 03-17-2025 End: 03-17-2025 Patient encounter procedure 03/17/2025 10:45 AM EDT Office Visit [facility] [address] [place] [address] Ry Vu MD [address] [place] [address] *NEW PER IRENE TAYLORO/NVG OS, T2 NPDR, DFE/OCT/OPTOS Op[facility] Comment on above: *NEW PER NADEGE CR AO/NVG OS, T2 NPDR, DFE/OCT/OPTOS Start: 03-15-2025 End: 03-15-2025 Patient encounter procedure 03/15/2025 9:00 AM EDT Office Visit [facility] [address] [place] [address] Aline Stark MD [address] [place] [address] Mychart message sent Ophthalmology Comment on above: Mychart message sent Start: 02-19-2025 End: 02-19-2025 Patient encounter procedure 02/19/2025 9:30 AM EDT Office Visit [facility] [address] [place] [address] Trudi Madrid, DUSTY.CELL LEAD [address] [place] [address] Hospital follow up, DREW on CKD3 [facility] Comment on above: Hospital follow up, DREW on CKD3 Start: 02-15-2025 End: 02-15-2025 Patient encounter procedure 02/15/2025 10:40 AM EDT Office Visit [facility] [address] [place], [place] [phone] Charlene Wilson MD [address] [place], [place] [phone] Left ICA Aneurysm, DSA [facility] Comment on above: Left ICA Aneurysm, D SA Start: 02-15-2025 End: 02-15-2025 Patient encounter procedure 02/15/2025 8:30 AM EDT Office Visit [facility] [address] [place] [address] Aline Stark MD [address] [place], [place] [phone] Mychart message sent Ophthalmology Comment on above: Mychart message sent Start: 02-03-2025 End: 02-03-2025 Patient encounter procedure Ophthalmology Comment on above: Dr. Vu in [place] in 2-3 weeks (cannot be later) per Dr Taylor *NEW PER DANO TAYLOR AO/NVG OS, T2 NPDR, DFE/OCT/OPTOS Start: 02-01-2025 End: 02-01-2025 Patient encounter procedure 02/01/2025 1:00 PM EST Office Visit [facility] [address] [place] [address] Charlene Wilson MD [address] [place], [place] [phone] Left ICA Aneurysm, DSA [facility] Comment on above: Left ICA Aneurysm, D SA Start: 01-21-2025 End: 01-21-2025 Insj non-tunneled central venous cath age 4 yr/> INSERTION NON-TUNNELED CV CATHETER OVER AGE 5 DREW (acute kidney injury) (HCC) 01/21/2025 5:49 PM EST [facility] Start: 01-20-2025 End: 01-20-2025 Patient encounter procedure 01/20/2025 2:15 PM EST Office Visit [facility] [address] [address] Marlyn Taylor PA-C [address] [place], [place] [phone] 01/20/25 @ 2:15pm Arleth [facility] Comment on above: 01/20/25 @ 2:15pm Merritt aTylor Start: 12-02-2024 Advance Directive Discussion Advance Directive Discussion [facility] Start: 12-02-2024 Annual Wellness Visi t (Medicare Advantage) Annual Wellness Visit (Medicare Advantage) [facility] Start: 08-02-2024 Covid-19 Vaccine ( season) Covid-19 Vaccine ( season) [facility] Start: 08-02-2024 Influenza vaccination Influenza Vacc ine (#1) [facility] Start: 09-02-2022 Diabetes Screening Diabetes Screenin g [facility] Start: 08-02-2022 Influenza vaccination INFLUENZA (#1) [facility] Start: 07-19-2022 End: 09-18-2022 Tacrolimus [Mass/volume] in Blood TACROLIMUS/FK-506 BL Lab Routine Heart transplanted (HCC) Expected: 07/19/2022 (Approximate), Expires: 09/18/2022 [facility] Work Phone: Comment on above: Expected: 07/19/2022 (Approximate), Expires: 09/18/2022 Start: 05-21-2022 End: 07-21-2022 TACROLIMUS/FK-506 BL TACROLIMUS/FK-506 BL Lab Routine Heart transplanted ([facility]) Expected: 05/21/2022, Expires: 07/21/2022 [facility] Work Phone: Comment on above: Expected: 05/21/2022 , Expires: 07/21/2022 Start: 04-23-2022 End: 06-23-2022 TACROLIMUS/FK-506 BL TACROLIMUS/FK-506 BL Lab Routine Heart transplanted ([facility]) Expected: 04/23/2022, Expires: 06/23/2022 [facility] Work Phone: Comment on above: Expected: 04/23/2022 , Expires: 06/23/2022 Start: 04-09-2022 End: 06-09-2022 CBC W Auto Differential panel - Blood CBC + DIFF Lab Routine Heart replaced by transplant ([facility]) Expected: 04/09/2022, Expires: 06/09/2022 [facility] Work Phone: Comment on above: Expected: 04/09/2022 , Expires: 06/09/2022 Start: 04-09-2022 End: 06-09-2022 Comprehensive metabolic 2000 panel - Serum or Plasma COMP METABOLIC PANEL Lab Routine Heart replaced by transplant ([facility]) Expected: 04/09/2022, Expires: 06/09/2022 [facility] Work Phone: Comment on above: Expected: 04/09/2022 , Expires: 06/09/2022 Start: 04-09-2022 End: 04-06-2023 HEART/LUNG REC POST TX DSA HEART/LUNG REC POST TX DSA ALLOGEN Routine Heart replaced by transplant ([facility]) Expected: 04/09/2022, Expires: 04/06/2023 [facility] Work Phone: Comment on above: Expected: 04/09/2022 , Expires: 04/06/2023 Start: 04-09-2022 End: 06-09-2022 LIPID PANEL BASIC LIPID PANEL BASIC Lab Routine Heart replaced by transplant ([facility]) Expected: 04/09/2022, Expires: 06/09/2022 [facility] Work Phone: Comment on above: Expected: 04/09/2022 , Expires: 06/09/2022 Start: 04-09-2022 End: 06-09-2022 Magnesium [Mass/volume] in Serum or Plasma MAGNESIUM BLD Lab Routine Heart replaced by transplant ([facility]) Expected: 04/09/2022, Expires: 06/09/2022 [facility] Work Phone: Comment on above: Expected: 04/09/2022 , Expires: 06/09/2022 Start: 04-09-2022 End: 06-09-2022 TACROLIMUS/FK-506 BL TACROLIMUS/FK-506 BL Lab Routine Heart replaced by transplant ([facility]) Expected: 04/09/2022, Expires: 06/09/2022 [facility] Work Phone: Comment on above: Expected: 04/09/2022 , Expires: 06/09/2022 Start: 04-09-2022 End: 06-09-2022 URINALYSIS, DIPSTICK ONLY URINALYSIS, DIPSTICK ONLY Lab Routine Heart replaced by transplant ([facility]) Expected: 04/09/2022, Expires: 06/09/2022 [facility] Work Phone: Comment on above: Expected: 04/09/2022 , Expires: 06/09/2022 Start: 12-02-2021 ADVANCE DIRECTIVE DISCUSSION ADVANCE DIRECTIVE DISCUSSION [facility] Start: 09-26-2021 COVID-19 VACCINE (3 - Pfizer risk 4-dose series) COVID-19 VACCINE (3 - Pfizer risk 4-dose series) [facility] Start: 09-26-2021 COVID-19 VACCINE (3 - Pfizer risk series) COVID-19 VACCINE (3 - Pfizer risk series) [facility] Start: 03-04-2020 Hepatitis B surface antibody level LDL CHOLESTEROL [facility] Start: 2019 Respiratory Syncytia l Virus (RSV) or age 60 yrs+ (1 - 1-dose 75+ series) Respiratory Syncytial Virus (RSV) or age 60 yrs+ (1 - 1-dose 75+ series) [facility] Start: 2019 RSV Vaccine (1 - 1-d ose 75+ series) RSV Vaccine (1 - 1-dose 75+ series) [facility] Start: 06-14-2015 Hemoglobin A1c measurement HbA1C [facility] Start: 06-14-2015 Hemoglobin A1c/Hemoglobin.total in Blood HBA1C [facility] Start: 11-01-2013 PNEUMOCOCCAL: 65+ (3 - PCV) PNEUMOCOCCAL: 65+ (3 - PCV) [facility] Start: 2009 ADULT PREVNAR ADULT PREVNAR [facility] Start: 1999 Screening for osteoporosis DEXA (modify frequency per FRAX score) [facility] Start: 1994 SHINGRIX VACCINE (1 of 2) SHINGRIX VACCINE (1 of 2) [facility] Start: 1963 Shingles vaccine (1 of 2) Shingles vaccine (1 of 2) [facility] Start: 1963 SHINGRIX VACCINE (1 of 2) SHINGRIX VACCINE (1 of 2) [facility] Start: 1963 Urine microalbumin profile DTAP,TDAP,TD (1 - Tdap) [facility] Start: 1962 ANNUAL PCP TEAM MARKET RESEARCH COORDINATOR ESTRELLA DISEASE VISIT ANNUAL PCP TEAM CHRONIC DISEASE VISIT [facility] Start: 1962 Anxiety Screening Anxiety Screening [facility] Start: 1962 BP CONTROLLED (<130/80) BP CONTROLLE D (<130/80) [facility] Start: 1962 Depression Screening Depression Scre ening [facility] Start: 1956 Depression Monitoring Depression Mon shahab [facility] Start: 1955 Screening for malign ant neoplasm of cervix Cervical Cancer Screening [facility] Start: 1954 3 comp foot exam completed DIABETIC FOOT EXAM [facility] Start: 1954 Diabetic foot examination Diabetic Foot Exam [facility] Start: 1954 Hepatitis B screening URINE ALBUMIN:CREATININE RATIO [facility] Start: 1954 Hepatitis C antibody , confirmatory test DILATED RETINAL EXAM [facility] Start: 1954 Lipid panel Lipids Ratify Start: 1950 PNEUMOCOCCAL: 65+ (1 - PCV) PNEUMOCOCCAL: 65+ (1 - PCV) [facility] End: 06-30-2025 Basic metabolic 2000 panel - Serum or Plasma Basic Metabolic Panel Lab Routine Daily for 7 Occurrences starting 06/24/2025 until 06/30/2025, 3 completed [facility] Comment on above: Daily for 7 Occurren ismhael starting 06/24/2025 until 06/30/2025, 3 completed End: 09-04-2025 CBC W Auto Differential panel - Blood CBC auto differential Lab Routine Tomorrow AM for 99 Occurrences starting 05/29/2025 until 09/04/2025, 2 completed [facility] Comment on above: Tomorrow AM for 99 O ccurrences starting 05/29/2025 until 09/04/2025, 2 completed End: 06-27-2025 CBC W Auto Differential panel - Blood CBC auto differential Lab Routine Daily for 5 Days starting 06/23/2025 until 06/27/2025, 4 completed [facility] Comment on above: Daily for 5 Days sta rting 06/23/2025 until 06/27/2025, 4 completed End: 09-04-2025 Comprehensive Metabolic Panel w/ Reflex to MG Comprehensive Metabolic Panel w/ Reflex to MG Lab Routine Tomorrow AM for 99 Occurrences starting 05/29/2025 until 09/04/2025, 2 completed [facility] Comment on above: Tomorrow AM for 99 O ccurrences starting 05/29/2025 until 09/04/2025, 2 completed End: 07-07-2025 Hemoglobin and Hematocrit Hemoglobin and Hematocrit Lab Routine Post Transfusion Post Transfusion Post Transfustion until discontinued starting 06/23/2025 [facility] Comment on above: Post Transfusion Pos t Transfusion Post Transfustion until discontinued starting 06/23/2025 Insj tunneled cvc w/ o subq port/egg setter age 4 yr/> INSERTION TUNNELED CV CATHETER DREW (acute kidney injury) (HCC) [facility] End: 06-22-2025 IRON SATURATION IRON SATURATION Lab Routine CKD (chronic kidney disease) stage 5, GFR less than 15 ml/min (HCC) Hyperkalemia Metabolic acidosis Hypertensive renal disease, stage 1 through stage 4 or unspecified chronic kidney disease 1 Occurrences starting 06/22/2025 until 06/22/2025 [facility] Comment on above: 1 Occurrences starti ng 06/22/2025 until 06/22/2025 Oxygen therapy [[facility] Data Set] Initiate Oxygen Therapy Protocol Respiratory Care Routine As Needed until discontinued starting 05/28/2025 [facility] Comment on above: As Needed until disc ontinued starting 05/28/2025 Oxygen therapy [[facility] Data Set] Initiate Oxygen Therapy Protocol Respiratory Care Routine Daily until discontinued starting 06/22/2025 [facility] Comment on above: Daily until disconti nued starting 06/22/2025 End: 06-23-2025 PREPARE RBC (CROSSMATCH), 1 Units PREPARE RBC (CROSSMATCH), 1 Units Blood Bank Routine Once for 1 Occurrences starting 06/23/2025 until 06/23/2025 [facility] Comment on above: Once for 1 Occurrenc es starting 06/23/2025 until 06/23/2025 Transfuse RBC Transfuse RBC Nu rsing Transfusion Routine 06/23/2025 11:23 AM EDT [employer] [facility] Transfuse RBC Transfuse RBC Nu rsing [facility] Immunizations Immunization Date Immunization Notes Care Provider Valente [facility] 09-28-2023 influenza virus vaccine, unspecified formulation González Shanks [facility] 05-20-2023 pneumococcal 20-matthew nt conjugate vaccine González Shanks [facility] 07-14-2022 influenza virus vaccine, unspecified formulation González Shanks [facility] 06-05-2022 SARS-CoV-2 mRNA (vsyeroirgjl-jkei-blwna se) vaccine Eddie VERAS [facility] 08-29-2021 SARS-CoV-2 (COVID-19 ) mRNA BNT-162b2 vax Morgan SALAM [facility] 08-02-2021 SARS-CoV-2 (COVID-19 ) mRNA BNT-162b2 vax Morgan SALAM [facility] 07-05-2021 influenza virus vaccine, unspecified formulation Morgan SALAM [facility] 09-29-2020 influenza, unspecifi ed formulation Morgan SALAM [facility] 07-24-2020 influenza virus vaccine, unspecified formulation Morgan SALAM [facility] 09-02-2017 influenza virus vaccine, unspecified formulation Morgan SALAM [facility] 08-07-2017 pneumococcal conjuga te vaccine, 13 valent Morgan SALAM [facility] 08-14-2016 influenza virus vaccine, unspecified formulation Morgan SALAM [facility] 09-29-2015 pneumococcal conjuga te vaccine, 13 valent Morgan SALAM [facility] 08-04-2015 influenza virus vaccine, unspecified formulation Morgan SALAM [facility] 09-15-2014 influenza virus vaccine, whole virus Loida Iammarino HOME THEATER EXPERT.CELL LEAD Work Phone: [facility] 09-15-2014 influenza, whole Morgan SALAM [facility] 11-01-2012 pneumococcal polysaccharide vaccine, 23 valent Loida Iammarino HOME THEATER EXPERT.CELL LEAD Work Phone: [facility] 12-28-2009 novel [id number], all formulations Loida Iammarino HOME THEATER EXPERT.CELL LEAD Work Phone: [facility] Work Phone: 08-19-2009 influenza virus vaccine, unspecified formulation Loida Mathias HOME THEATER EXPERT.CELL LEAD Work Phone: [facility] 09-01-2006 influenza virus vaccine, unspecified formulation Loida Mathias HOME THEATER EXPERT.CELL LEAD Work Phone: [facility] Work Phone: 09-01-2006 pneumococcal polysaccharide vaccine, 23 valent Loida Mathias HOME THEATER EXPERT.CELL LEAD Work Phone: [facility] Work Phone: NEGATED: Highlighted row has not occurred!07-12-2022 influenza virus vaccine, unspecified formulation Eddie VERAS [facility] Payers Date Payer Category Payer Medicaid 2024 Private Health Insurance 2024 Self-pay 2022 Medicare UHC MEDICARE UHC DUAL COMPLETE HMO SNP [id number] 2022-Present [phone] [address] [place] [address] Medicare [id number] 2022 Medicare UHC MEDICARE UHC DUAL COMPLETE HMO SNP [id number] 2022-Present [phone] [address] [place] [address] Medicare [id number] 2022 Medicare (Managed Care) [id number]. [id number] 1959 Medicaid [id number] 1959 Medicare [id number] 1959 Self-pay [id number] 1959 Unknown [id number] 1944 Unknown [id number] 2.16.840.1.300550.3.579.2.5 93 1944 Unknown [id number] 2.16.840.1.411319.3.579.2.5 93 1944 Unknown [id number] 2.16.840.1.428282.3.579.2.5 93 1944 Unknown [id number] 2.16.840.1.498625.3.579.2.5 93 1944 Unknown [id number] 2.16.840.1.044903.3.579.2.5 1944 Unknown [id number] 2.16.840.1.774127.3.579.2.5 93 1944 Unknown [id number] 2.16.840.1.658096.3.579.2.5 93 1944 Unknown [id number] 2.16.840.1.553450.3.579.2.5 1944 Unknown [id number] 2.16.840.1.618127.3.579.2.5 1944 Unknown [id number] 2.16.840.1.762584.3.579.2.5 1944 Unknown [id number] 2.16.840.1.031169.3.579.2.5 1944 Unknown [id number] 2.16.840.1.105788.3.579.2.5 1944 Unknown [id number] 2.16.840.1.875481.3.579.2.5 1944 Unknown [id number] 2.16.840.1.798550.3.579.2.5 1944 Unknown [id number] 2.16.840.1.125894.3.579.2.5 1944 Unknown [id number] 2.16.840.1.072047.3.579.2.5 1944 Unknown [id number] 2.16.840.1.490834.3.579.2.5 1944 Unknown [id number] 2.16.840.1.259289.3.579.2.5 93 1944 Unknown [id number] 2.16.840.1.546101.3.579.2.7 27 1944 Unknown [id number] 2.16.840.1.131044.3.579.2.1 73 1944 Unknown [id number] 2.16.840.1.980140.3.579.2.1 73 1944 Unknown [id number] 2.16.840.1.992582.3.579.2.1 73 1944 Unknown [id number] 2.16.840.1.406208.3.579.2.1 73 1944 Unknown [id number] 2.16.840.1.459239.3.579.2.1 73 1944 Unknown [id number] 2.16.840.1.360962.3.579.2.1 73 1944 Unknown [id number] 2.16.840.1.710888.3.579.2.1 96 1944 Unknown [id number] 2.16.840.1.803438.3.579.2.1 96 1944 Unknown [id number] 2.16.840.1.307586.3.579.2.1 96 Unknown [id number] 2.16.840.1.300254.3.579.2.5 93 Social History Date Type Detail Facility Start: 12-20-2016 End: 05-13-2019 Tobacco smoking status NHIS Ex-smoker [facility] Work Phone: History of tobacco use Cigarette Smoker [facility] Work Phone: Start: 09-07-2019 End: 06-22-2025 Alcohol intake Current non-drinker of alcohol (finding) [facility] Start: 1945 Sex Assigned At Not on file [facility] Start: 07-12-2022 Never smoked t obacco (finding) [facility] Never [facility] Start: 09-07-2019 End: 06-22-2025 Female [facility] History of tobacco use Current smoker [facility] Start: 05-13-2019 End: 06-22-2025 Cigarettes smoked current (pack per day) - Reported 0.3 [facility] Start: 05-13-2019 Tobacco use and exposure Smokeless tobacco non-user [facility] Start: 1945 Sex Assigned At Female F [facility] Start: 12-20-2016 Tobacco use and exposure Former smokeless tobacco user [facility] End: 12-20-1998 History of tobacco use User of smokeless tobacco [facility] Has the electric, [employer], oil, or water company threatened to shut off services in your home in past 12Mo No [facility] (I/We) worried cameron er (my/our) food would run out before (I/we) got money to buy more. Never true [facility] Start: 01-11-2013 Sex Female (finding) [facility] How often to you hav e a drink containing alcohol? Never [facility] Goals Date Patient Goal Desired Activity /State Personal health goal Functional Status Date Assessment Result Facility 01-25-2025 Are you deaf, or do you have serious difficulty hearing No 01/25/2025 1:00 PM Rachel Phillip, SHELDON No [facility] 01-25-2025 Are you blind, or do you have serious difficulty seeing, even when wearing glasses No 01/25/2025 1:00 PM Rachel Phillip, RN No [facility] [facility] 01-25-2025 Do you have serious difficulty walking or climbing stairs No 01/25/2025 1:00 PM Rachel Phillip, RN No [facility] 01-25-2025 Do you have difficul ty dressing or bathing No 01/25/2025 1:00 PM Rachel Phillip, RN No [facility] 01-25-2025 Because of a physica l, mental, or emotional condition, do you have difficulty doing errands alone such as visiting a physician's office or shopping No 01/25/2025 1:00 PM Rachel Phillip RN No [facility] 04-07-2023 Functional Status N/A [facility] 07-05-2015 Are you deaf, or do you have serious difficulty hearing No 07/05/2015 2:33 PM EDT Trish AquinoRn) (Hist), RN No [facility] 07-05-2015 Are you blind, or do you have serious difficulty seeing, even when wearing glasses No 07/05/2015 2:33 PM Trish Ayala (Rn) (Hist), RN No [facility] 07-05-2015 Do you have serious difficulty walking or climbing stairs No 07/05/2015 2:33 PM Trish AyalaRn) ([facility]), RN No [facility] 07-05-2015 Do you have difficul ty dressing or bathing No 07/05/2015 2:33 PM Trish AyalaRn) ([facility]), RN No [facility] 07-05-2015 Because of a physica l, mental, or emotional condition, do you have difficulty doing errands alone such as visiting a physician's office or shopping No 07/05/2015 2:33 PM Trish AyalaRn) ([facility]), RN No [facility] Mental Status Date Assessment Result Facility 01-25-2025 Because of a physica l, mental, or emotional condition, do you have serious difficulty concentrating, remembering, or making decisions No 01/25/2025 1:00 PM Rachel Phillip RN No [facility] 07-05-2015 Because of a physica l, mental, or emotional condition, do you have serious difficulty concentrating, remembering, or making decisions No 07/05/2015 2:33 PM Trish AyalaRn) ([facility]), RN No [facility] Clinical Notes 11-14-2017 to 06-26-2025 Sahra Burger RN - 06/26/2025 2:40 PM Sahra Estevez RN - 06/26/2025 2:30 PM Lexus Ferris MD - 06/26/2025 11:03 Derian Hermosillo MD - 06/26/2025 8:09 AM EDTDischarge Instructions Note Date & Type Note Facility 06-26-2025 History of Present illness Narrative Patient discharged at this time. Patient assisted to personal car via wheelchair. Patient transporting self home. Discharge education completed at this time. Follow-up [...] and returned to patient to take home. [facility] [phone] Nephrology progress note 06/26/2025, 11:03 AM Pt Name: Sylvia Herrera Birthdate: 1945 Admit Date: 06/22/2025 3:44 PM Primary Care Physician: Tao Rooney MD Room number 0328/0328-01 Patient was evaluated [...] of the following organ systems was limited: EENT/Resp/CV/GI//MS/Neuro/Skin /Lymph Services were provided through a video synchronous discussion virtually to substitute for in-person visit. Telehealth service was provided with the patient at [facility] and myself the physician in [facility] and RN who has initiated the visit. TELEHEALTH EVALUATION -- Audio/Visual Patient's Location: Hospital Room # 328 Physician's (myself) [facility] nurse: Present Chief Complaint: Nephrology [...] 11.2 oz) Body mass index is 18.38 kg/m . Physical examination VITALS: Vitals: 06/25/25 1500 06/25/25 1900 06/26/25 0448 06/26/25 0740 BP: (!) 163/85 (!) 165/81 (!) 140/74 Pulse: 70 74 71 Resp: 16 16 18 Temp: 97 F (36.1 C) 97.2 F (36.2 C) 98 F (36.7 C) TempSrc: Temporal Temporal Temporal SpO2: 100% 100% [...] of the following organ systems is limited: EENT/Resp/CV/GI//MS/Neuro/Skin /Lymph Lab Data CBC: Recent Labs 06/24/25 0606/25/25 0630 06/26/25 0555 WBC 6.8 5.9 6.9 HGB 8.5* 8.0* 8.0* HCT 26.3* 24.4* 24.0* PLT 130* 119* 119* BMP: Recent Labs 06/23/25 1640 06/24/25 0606/25/25 0630 06/26/25 0555 NA -- 137 137 [...] AC magnesium oxide 400 mg Oral TID shiigo-plhloygl-jkptxgu 5,000 Units Oral TID WC zpnzgl-izluejah-bppjsnl 20,000 Units Oral TID WC multivitamin 1 [...] BMP in [address] Norman in 2 - 3 weeks Lexus Tillman MD [facility] Images from the original note were not included. [address], [address] Progress Note Date: 06/26/2025 Patient name: Sylvia [...] (coronary artery disease), CHF (congestive heart failure) (HCC), Diverticulosis of large intestine without hemorrhage, GERD (gastroesophageal reflux disease), History of blood transfusion, Pancreatitis, Pneumonia, Psychiatric problem, and Thyroid disease. PAST SURGICAL HISTORY: has a past [...] Date End Date Taking? Authorizing Provider GLENROY [id number] units delayed release capsule TAKE 3 CAPSULES BY MOUTH 3 TIMES A DAY FOR 30 DAYS 05/28/25 Yes ProviderAriel MD sodium bicarbonate 650 MG tablet Take 2 tablets by mouth 3 times daily 06/18/25 Yes Shola Norman MD oyster calcium (OYST-SONA) 500 MG TABS Take 1 tablet by mouth in the morning and at bedtime 06/18/25 Yes Shola Norman MD magnesium oxide (MAG-OX) 400 MG tablet Take 1 tablet by mouth in the morning, at noon, and at bedtime 05/30/25 Yes Blanca Barnhart MD clonazePAM (KLONOPIN) 0.5 MG tablet Take 1 tablet by mouth 2 times daily. Patient taking differently: Take 1 tablet by mouth 2 times daily as needed. 05/30/25 Yes Blanca Barnhart MD levothyroxine (SYNTHROID) 100 MCG tablet Take [...] Unsure of dose Yes Ariel Wells MD Sanderson-3 Fatty Acids (FISH OIL) 600 MG CAPS [...] by mouth 2 times daily 12/28/16 Yes Jvai Soria DO tacrolimus (PROGRAF) 0.5 MG capsule [...] by mouth nightly Yes Ariel Wells MD ldrswx-tvtfxwvn-hxcdnbc (CREON) [id number] units CPEP delayed release capsule Take 4 capsules by mouth 3 times daily (with meals) Patient not taking: Reported on 06/22/2025 Airel Wells MD alendronate (FOSAMAX) 70 MG tablet [...] 71 Resp: 16 16 18 Temp: 97 F (36.1 C) 97.2 F (36.2 C) 98 F (36.7 C) TempSrc: Temporal Temporal Temporal SpO2: 100% 100% [...] clubbing or edema DIAGNOSTICS: Laboratory Testing: See [facility] EMR for lab data Recent Results (from [...] packet 4 g 4 g Oral BID Derian Hoover MD 0.9 % sodium chloride infusion IntraVENous Continuous Shola Norman MD 75 mL/hr at 06/25/25 2320 Rate Verify at 06/25/25 2320 calcium carbonate (TUMS) chewable tablet 1,000 mg 1,000 mg Oral BID Derian Hoover MD 1,000 mg at 06/25/25 2131 0.9 % sodium chloride infusion IntraVENous PRN Tolu Barba APRN - CNP tacrolimus (PROGRAF) capsule 1 mg (Patient Supplied) 1 mg Oral Daily Tolu Barba APRN - CNP 1 mg at 06/25/25 0843 epoetin david-epbx (RETACRIT) injection 6,000 Units 6,000 Units SubCUTAneous Once per day on Saturday Shola Norman MD 6,000 Units at 06/25/25 1659 vitamin D (ERGOCALCIFEROL) capsule 50,000 Units 50,000 Units Oral Weekly Shola Norman MD 50,000 Units at 06/23/25 1422 calcium acetate (PHOSLO) capsule 667 mg 1 capsule Oral TID Shola Norman MD 667 mg at 06/25/25 1653 loperamide (IMODIUM) capsule 2 mg 2 mg Oral 4x Daily PRN Tolu Barba APRN - CNP 2 mg at 06/25/25 213 pantoprazole (PROTONIX) 40 mg in sodium chloride (PF) 0.9 % 10 mL injection 40 mg IntraVENous Daily Tolu Barba APRN - CNP 40 mg at 06/25/25 0843 [Held by provider] alendronate (FOSAMAX) tablet 70 mg 70 mg Oral Q7 Days Derian Hoover MD [Held by provider] aspirin EC tablet 81 mg 81 mg Oral Daily Derian Hoover MD 81 mg at 06/25/25 0842 carvedilol (COREG) tablet 12.5 mg 12.5 mg Oral BID Derian Hoover MD 12.5 mg at 06/25/25 1653 clonazePAM (KLONOPIN) tablet 0.5 mg 0.5 mg Oral BID PRN Derian Hoover MD 0.5 mg at 06/25/25 2131 levothyroxine (SYNTHROID) tablet 112 mcg 112 mcg Oral QAM Derian Hoover MD 112 mcg at 06/26/25 0747 magnesium oxide (MAG-OX) tablet 400 mg 400 mg Oral TID Derian Hoover MD 400 mg at 06/25/25 213 onqkir-ypxuumuu-sllmpmc (ZENPEP) delayed release capsule 5,000 Units 5,000 Units Oral TID Derian Hoover MD 5,000 Units at 06/25/25 165 fzawvq-ywbuxgaj-ginlhfp (ZENPEP) delayed release capsule 20,000 Units 20,000 Units Oral TID Derian Hoover MD 20,000 Units at 06/25/25 165 multivitamin 1 tablet 1 tablet Oral Daily Derian Hoover MD 1 tablet at 06/25/25 0843 mycophenolate (CELLCEPT) capsule 500 mg (Patient Supplied) 500 mg Oral BID Derian Hoover MD 500 mg at 06/25/25 213 pramipexole (MIRAPEX) tablet 0.5 mg 0.5 mg Oral Nightly Derian Hoover MD 0.5 mg at 06/25/252130 atorvastatin (LIPITOR) tablet 10 mg 10 mg Oral Daily Derian Hoover MD 10 mg at 06/25/25 0843 sodium bicarbonate tablet 1,300 mg 1,300 mg Oral TID Derian Hoover MD 1,300 mg at 06/25/25 2131 ascorbic acid (VITAMIN C) tablet 500 mg 500 mg Oral Daily Derian Hoover MD 500 mg at 06/25/25 0843 sodium chloride flush 0.9 % injection 10 mL 10 mL IntraVENous 2 times per day Derian Hoover MD 10 mL at 06/25/25 0845 sodium chloride flush 0.9 % injection 10 mL 10 mL IntraVENous PRN Derian Hoover MD 0.9 % sodium chloride infusion IntraVENous PRN Derian Hoover MD ondansetron (ZOFRAN-ODT) disintegrating tablet 4 mg 4 mg Oral Q8H PRN Derian Hoover MD Or ondansetron (ZOFRAN) injection 4 mg 4 mg IntraVENous Q6H PRN Derian Hoover MD polyethylene glycol (GLYCOLAX) packet 17 g 17 g Oral Daily PRN Derian Hoover MD acetaminophen (TYLENOL) tablet 650 mg 650 mg Oral Q6H PRN Derian Hoover MD 650 mg at 06/24/25 1622 Or acetaminophen (TYLENOL) suppository 650 mg 650 mg Rectal Q6H PRN Derian Hoover MD ASSESSMENT: Principal Problem: Hypocalcemia Active Problems: [...] this chart was generated using voice recognition [employer] dictation software. Although every effort was made to ensure the accuracy of this automated tearoom hostess, some errors in tearoom hostess may have occurred. Derian Hoover MD 06/26/2025 8:09 AM Entered patient's room for morning vital signs and head to toe assessment. Patient resting in the bed at this time. A&O x4, calm, and cooperative. Patient denies of pain at this time. Vital signs and head to toe assessment completed at this time, see flowsheets for more details. Patient reports sleeping well last night. Wound to R upper thigh clean,dry, and intact. Patient denies no more needs at this time. Call light and bedside table within reach. Bed/chair wheels locked. Bed in lowest position. Director Of Enrollment at bedside for shift assessment. PT A&O x4, they are able to answer questions and follow commands appropriately. Vitals and assessment completed as charted, see flowsheets. PT denies any other needs at this time and is resting comfortably. Call light in reach, bed in the lowest position and locked, care on-going. Pt has had at least 6 episodes of diarrhea this shift. She has been requesting imodium every 6 hours as ordered. Pt feeling discouraged. Emotional support given. Pt is hopeful she will be discharged tomorrow. See prior Progress Note [facility] [phone] Nephrology progress note 06/25/2025, 11:50 AM Pt Name: Sylvia Herrera Birthdate: 1945 Admit Date: 06/22/2025 3:44 PM Primary Care Physician: Tao Rooney MD Room number 0328/0328-01 Patient was evaluated [...] of the following organ systems was limited: EENT/Resp/CV/GI//MS/Neuro/Skin /Lymph Services were provided through a video synchronous discussion virtually to substitute for in-person visit. Telehealth service was provided with the patient at [facility] and myself the physician in my office and RN who has initiated the visit. TELEHEALTH EVALUATION -- Audio/Visual Patient's Location: Hospital Room # 328 Physician's (myself) Location: [facility], [facility] Patient's nurse: Present Chief Complaint: Nephrology following [...] 11.2 oz) Body mass index is 18.55 kg/m . Physical examination VITALS: Vitals: 06/24/25 1345 06/24/25 1929 06/25/25 0600 06/25/25 0815 BP: (!) 148/78 (!) 158/79 (!) 171/92 Pulse: 71 69 77 Resp: Temp: 97.4 F (36.3 C) 97 F (36.1 C) 97.5 F (36.4 C) TempSrc: Temporal Temporal Temporal SpO2: 100% 99% [...] of the following organ systems is limited: EENT/Resp/CV/GI//MS/Neuro/Skin /Lymph Lab Data CBC: Recent Labs 06/23/25 0615 [...] Weekly calcium acetate 1 capsule Oral TID pantoprazole (PROTONIX) 40 mg in sodium chloride (PF) 0.9 % 10 mL injection 40 mg IntraVENous Daily [Held by provider] alendronate 70 mg Oral Q7 Days aspirin 81 mg Oral Daily carvedilol 12.5 mg Oral BID levothyroxine 112 mcg Oral QAM AC magnesium oxide 400 mg Oral TID ndcrkn-ewqftmfh-urntljx 5,000 Units Oral TID WC qgsdjp-qlfeovdg-ixidcqw 20,000 Units Oral TID multivitamin 1 tablet Oral Daily mycophenolate 500 [...] On replacement D/W pt and RN Shola Norman MD [facility] Vitals and assessment completed at this time as charted. Pt sitting up in chair. Alert and oriented x4. Denies pain. Has not had much diarrhea today but requests imodium. Hoping to go home. Fall precautions in place. Images from the original note were not included. [address] , [place], [place], [address] Attestation Patient: Sylvia Herrera Date of Admission: 06/22/2025 3:44 PM Hospital Day # 3 Date of Evaluation: 06/25/2025 I personally evaluated and examined the patient [id number] in conjunction with the PA/AUTOMOBILE BODY REPAIR CHIEF and agree with the management and dispostition of the patient. Please see the PA/AUTOMOBILE BODY REPAIR CHIEF's note for full details. My bautista findings are: SUBJECTIVE: Patient seen for [...] staff as well. OBJECTIVE: Vitals: Temp: 97 F (36.1 C) BP: (!) 163/85 Respirations: 16 Pulse: 70 SpO2: 100 % Weight Wt Readings from Last 3 Encounters: 06/25/25 46 kg (101 lb 6.4 oz) 06/18/25 46.3 kg (102 lb) 05/30/25 48.9 kg (107 lb 11.2 oz) Body mass index is 18.55 kg/m . 24HR INTAKE/OUTPUT: Intake/Output Summary (Last 24 hours) at 06/25/2025 1625 Last data filed at 06/25/2025 1514 Gross per 24 hour Intake 3150.93 ml Output -- Net 3150.93 ml - Exam: GEN: Awake, alert and oriented x3. [...] with the plan as outlined in the AUTOMOBILE BODY REPAIR CHIEF/PA's note Disposition: Discharge plan is pending Please note that this chart was generated using voice recognition [employer] dictation software. Although every effort was made to ensure the accuracy of this automated tearoom hostess, some errors in tearoom hostess may have occurred. Derian Hoover MD 06/25/2025 4:25 PM TOLU BARBA APRN - ODETTE 06/25/2025 6:14 AM Progress Note SUBJECTIVE: Patient [...] 158/79 Pulse: 69 Resp: 18 Temp: 97 F (36.1 C) SpO2: 99% Weight - Scale: 46 kg (101 lb 6.4 oz) (Bed zeroed) Height: 157.5 cm (5' 2 ) Weight Wt Readings from Last 3 Encounters: 06/25/25 46 kg (101 lb 6.4 oz) 06/18/25 46.3 kg (102 lb) 05/30/25 48.9 kg (107 lb 11.2 oz) Body mass index is 18.55 kg/m . 24HR INTAKE/OUTPUT: Intake/Output Summary (Last 24 hours) at 06/25/2025 0614 Last data filed at 06/25/2025 0510 Gross per 24 hour Intake 4443.03 ml Output -- Net 4443.03 ml - Exam: GEN: Awake, alert and oriented x3. [...] ocvererd with bandage. Clean dry and intact. - Diagnostic Data: Complete Blood Count: Recent Labs [...] studies Nutrition status: at risk for malnutrition Denture Processor consult initiated I/O Daily weight Monitor Daily [...] Unable to assess (06/23/25847) Acute Illness - Delinquent Tax Collection Assistant Strength: Not Performed (06/23/25847) Acute Illness - [...] Code Disposition: Discharge plan is pending [facility] Advanced Care Planning documentation: [x] I have confirmed that the patient's Advance Care Plan is present, Code Status is documented, or surrogate decision maker is listed in the patient's [...] patient's medical record. [DOES NOT SATISFY [facility] PERFORMANCE] DUSTY FLORES CNP , DUSTY, AUTOMOBILE BODY REPAIR CHIEF-C Hospitalist Medicine 06/25/2025, 6:14 AM Dressing on right thigh completely saturated. Dressing changed to 2 ABD pads and tape at this time. Patient A&O x4, calm, and cooperative. Vital signs and head to toe assessment completed at this time, see flowsheets for details. Patient was briefly educated on medications due tonight. Patient denies needs at this time. Call light within reach. Bedside table within reach, bed in lowest position, bed/chair wheels locked, and alarm is set. Care ongoing. Patient reassessment completed, and vitals updated, see flowsheet. No changes to previous assessment. Patient independent in the room, calling out accordingly. Patient ambulating frequently. Call light within reach. No further needs at this time. Care ongoing. Patient upset after hearing she will not be discharged today per Dr Norman. Emotional support and encouragement provided. Dr. Norman doing tele visit. [facility] [phone] Nephrology progress note 06/24/2025, 1:06 PM Pt Name: Sylvia Herrera Birthdate: 1945 Admit Date: 06/22/2025 3:44 PM Primary Care Physician: Tao Rooney MD Room number 0328/0328-01 Patient was evaluated [...] of the following organ systems was limited: EENT/Resp/CV/GI//MS/Neuro/Skin /Lymph Services were provided through a video synchronous discussion virtually to substitute for in-person visit. Telehealth service was provided with the patient at [facility] and myself the physician in my office and RN who has initiated the visit. TELEHEALTH EVALUATION -- Audio/Visual Patient's Location: Hospital Room # 328 Physician's (myself) Location: [facility], [facility] Patient's nurse: Present Chief Complaint: Nephrology following [...] 11.2 oz) Body mass index is 18.84 kg/m . Physical examination VITALS: Vitals: 06/23/25 1349 06/23/25 1930 06/24/25 0500 06/24/25 0727 BP: (!) 169/89 (!) 145/64 (!) 142/81 Pulse: 73 75 66 Resp: 20 18 18 Temp: 97.4 F (36.3 C) 97.7 F (36.5 C) 97.5 F (36.4 C) TempSrc: Temporal Temporal Temporal SpO2: 100% 99% [...] of the following organ systems is limited: EENT/Resp/CV/GI//MS/Neuro/Skin /Lymph Lab Data CBC: Recent Labs 06/22/25 1605 [...] Weekly calcium acetate 1 capsule Oral TID pantoprazole (PROTONIX) 40 mg in sodium chloride (PF) 0.9 % 10 mL injection 40 mg IntraVENous Daily [Held by provider] alendronate 70 mg Oral Q7 Days aspirin 81 mg Oral Daily carvedilol 12.5 mg Oral BID WC levothyroxine 112 mcg Oral QAM AC magnesium oxide 400 mg Oral TID vmilmy-addecevh-ntexjgy 5,000 Units Oral TID WC ezsrfr-pkyqmeqt-qhhkqlo 20,000 Units Oral TID multivitamin 1 tablet Oral Daily mycophenolate 500 [...] care reviewed with patient and RN Shola Norman MD [facility] Entered patient's room for morning vital signs [...] Bed/chair wheels locked. Bed in lowest position. Images from the original note were not included. [address] [place], [place], [address] Attestation Patient: Sylvia Herrera Date of Admission: 06/22/2025 3:44 PM Hospital Day # 2 Date of Evaluation: 06/24/2025 I personally evaluated and examined the patient hqes-in-tbax in conjunction with the PA/AUTOMOBILE BODY REPAIR CHIEF and agree with the management and dispostition of the patient. Please see the PA/AUTOMOBILE BODY REPAIR CHIEF's note for full details. My bautista findings are: SUBJECTIVE: Patient seen for follow up of Hypocalcemia. She is doing better than prior and denies any concerns today. Discussed POC. OBJECTIVE: Vitals: Temp: 97 F (36.1 C) BP: (!) 158/79 Respirations: 18 Pulse: 69 SpO2: 99 % Weight Wt Readings from Last 3 Encounters: 06/24/25 46.7 kg (103 lb) 06/18/25 46.3 kg (102 lb) 05/30/25 48.9 kg (107 lb 11.2 oz) Body mass index is 18.84 kg/m . 24HR INTAKE/OUTPUT: Intake/Output Summary (Last 24 hours) at 06/24/20251942 Last data filed at 06/24/2025 1804 Gross per 24 hour Intake 6022.1 ml Output -- Net 6022.1 ml - Exam: GEN: Awake, alert and oriented x3. [...] with the plan as outlined in the AUTOMOBILE BODY REPAIR CHIEF/PA's note Disposition: Discharge plan is pending Please note that this chart was generated using voice recognition [employer] dictation software. Although every effort was made to ensure the accuracy of this automated tearoom hostess, some errors in tearoom hostess may have occurred. Derian Hoover MD 06/24/2025 7:43 PM Progress Note SUBJECTIVE: [...] 148/78 Pulse: 71 Resp: 18 Temp: 97.4 F (36.3 C) SpO2: 100% Weight - Scale: 46.7 kg (103 lb) Height: 157.5 cm (5' 2 ) Weight Wt Readings from Last 3 Encounters: 06/24/25 46.7 kg (103 lb) 06/18/25 46.3 kg (102 lb) 05/30/25 48.9 kg (107 lb 11.2 oz) Body mass index is 18.84 kg/m . 24HR INTAKE/OUTPUT: Intake/Output Summary (Last 24 hours) at 06/24/2025 1506 Last data filed at 06/24/2025 1341 Gross per 24 hour Intake 4819.7 ml Output -- Net 4819.7 ml - Exam: GEN: Awake, alert and oriented x3. [...] ocvererd with bandage. Clean dry and intact. - Diagnostic Data: Complete Blood Count: Recent Labs [...] studies Nutrition status: at risk for malnutrition Denture Processor consult initiated I/O Daily weight Monitor Daily [...] Unable to assess (06/23/25847) Acute Illness - Delinquent Tax Collection Assistant Strength: Not Performed (06/23/25847) Acute Illness - [...] Code Disposition: Discharge plan is pending [facility] Advanced Care Planning documentation: [x] I have confirmed that the patient's Advance Care Plan is present, Code Status is documented, or surrogate decision maker is listed in the patient's [...] patient's medical record. [DOES NOT SATISFY [facility] PERFORMANCE] DUSTY FLORES CNP , DUSTY, AUTOMOBILE BODY REPAIR CHIEF-C Hospitalist Medicine 06/24/2025, 3:06 PM Vitals and assessment were completed at this time. Director Of Enrollment walked patient through the medications that would be administered tonight and encouraged patient to ask questions about the medications and therapies. Patient denies questions. Patient's appetite is improved and she did eat a turkey sandwich on this shift. Imodium was given per patient request. Call light and bedside table remain within reach. Patient denies needs at this time. Care ongoing. Urine sent as ordered Blood transfusion complete, patient tolerated well. Dr Norman video conferencing with patient. Tranfusion initiated, patient tolerating well, RN process description writer at bedside monitoring for the initial 15 minutes of transfusion. C diff stool specimen sent as ordered. Physician Progress Note PATIENT: SYLVIA HERRERA CSN #: [id number] : 1945 ADMIT DATE: 06/22/2025 3:44 PM DISCH DATE: RESPONDING PROVIDER #: Derian Hoover MD QUERY TEXT: Severe malnutrition is documented [...] & deltoids) Fluid Accumulation: Unable to assess Delinquent Tax Collection Assistant Strength: Not Performed RD consult. Options provided: [...] on 06/23/2025 10:14 AM Electronically signed by: Derian Hoover MD 06/23/2025 10:20 AM Patient awake, assessment and vitals initiated, call light within reach, whiteboard updated. Physical Therapy Facility/Department: [facility] Physical Therapy Initial Assessment Name: [...] (coronary artery disease), CHF (congestive heart failure) (), Diverticulosis of large intestine without hemorrhage, GERD (gastroesophageal reflux disease), History of blood transfusion, Pancreatitis, Pneumonia, Psychiatric problem, and Thyroid disease. Past Surgical History: [...] at this time due to being at [facility]. Therapy Prognosis: Good Decision Making: Low Complexity [...] services?: Yes Family/Caregiver Present: No Referring Practitioner: Derian Hoover MD Referral Date : 06/22/25 Diagnosis: E83.51 Follows Commands: Within Functional Limits Social/Functional History Social/Functional History Lives With: Alone Type of Home: Senior housing apartment ([employer]) Home Layout: One level Home Access: Elevator [...] Level of Assist for Transfers: Independent Active Bid Manager: Yes Vision/Hearing Vision Vision: Within Functional Limits [...] 7 Emma Shelley PT, DPT Cosigned by Derian Hoover MD at 06/23/2025 1:32 PM EDT Occupational Therapy Facility/Department: [facility] Occupational Therapy Initial Assessment Name: [...] (coronary artery disease), CHF (congestive heart failure) (), Diverticulosis of large intestine without hemorrhage, GERD (gastroesophageal reflux disease), History of blood transfusion, Pancreatitis, Pneumonia, Psychiatric problem, and Thyroid disease. Past Surgical History: has a past surgical history that includes Cardiac surgery; Cholecystectomy; Colonoscopy; Dilatation, esophagus; vascular surgery; XR MIDLINE EQUAL OR GREATER THAN 5 YEARS (01/21/2025); and Heart transplant (2005). Treatment Diagnosis: Weakness Assessment Performance deficits / Impairments: Decreased strength;Decreased high-level IADLs Assessment: 79 year old female admitted to [facility] due to hypocalcemia. Patient presents with general [...] Level of Assist for Transfers: Independent Active Bid Manager: Yes Objective Vision Vision: Impaired Vision Exceptions: [...] Education Method: Verbal Education Outcome: Verbalized understanding AM-PAC - ADL AM-PAC Daily Activity - Inpatient How much help [...] AM-PAC Inpatient Daily Activity Raw Score: 24 AM-PAC Inpatient ADL T-Scale Score : 57.54 ADL [...] Minutes 7 Yamini Marin OT Cosigned by Derian Hoover MD at 06/23/2025 1:32 PM EDT Comprehensive Nutrition Assessment Type and Reason [...] & deltoids) Fluid Accumulation: Unable to assess Delinquent Tax Collection Assistant Strength: Not Performed Nutrition Assessment: Moderate acute [...] inidices well above former values on last admission. Home diet does not sound excessive in PO4 and is on both a Magnesium and Calcium supplement port captain. Known lower vitamin D, on supplement port captain as well. Nutrition Related Findings: active b/s. no edema. Wound Type: Ortiz (from grease) Current Nutrition Intake & Therapies: Average Meal Intake: 76-100% (observed) Average Supplements Intake: 76-100% (observed) ADULT DIET; Regular ADULT ORAL NUTRITION SUPPLEMENT; Breakfast, Lunch, Dinner; Standard High Calorie/High Protein Oral Supplement Anthropometric Measures: Height: 157.5 cm (5' 2 ) [place] Body Weight (IBW): 110 lbs (50 kg) [...] Used for Energy Requirements: Current Energy (kcal/day): 1077-5631 (32-37) Weight Used for Protein Requirements: Current [...] Continue Oral Nutrition Supplement Harry Ardon RD, VOLODYMYR Contact: [phone] [facility] Inpatient/Observation/Outpatient Rehabilitation Date: 06/23/2025 Patient Name: Sylvia [...] does not require skilled services due to: Therapist/Blogs Manager will attempt to see this patient, at our earliest opportunity. Roxanne Mata, PT, DPT Date: 06/23/2025 Progress Note SUBJECTIVE: Patient seen for f/u [...] 169/89 Pulse: 73 Resp: 20 Temp: 97.4 F (36.3 C) SpO2: 100% Weight - Scale: 46.9 kg (103 lb 6.4 oz) Height: 157.5 cm (5' 2 ) Weight Wt Readings from Last 3 Encounters: 06/23/25 46.9 kg (103 lb 6.4 oz) 06/18/25 46.3 kg (102 lb) 05/30/25 48.9 kg (107 lb 11.2 oz) Body mass index is 18.91 kg/m . 24HR INTAKE/OUTPUT: Intake/Output Summary (Last 24 hours) at 06/23/2025 1505 Last data filed at 06/23/2025 1349 Gross per 24 hour Intake 1198.67 ml Output 700 ml Net 498.67 ml - Exam: GEN: Awake, alert and oriented x3. [...] ocvererd with bandage. Clean dry and intact. - Diagnostic Data: Complete Blood Count: Recent Labs [...] 134* 104* Comprehensive Metabolic Profile: Recent Labs 06/22/25140206/22/25 1605 06/23/25 0615 NA 133* 135* 134* [...] lipase/amylase Nutrition status: at risk for malnutrition Denture Processor consult initiated I/O Daily weight Monitor Daily [...] Unable to assess (06/23/25847) Acute Illness - Delinquent Tax Collection Assistant Strength: Not Performed (06/23/25847) Acute Illness - [...] Code Disposition: Discharge plan is pending [facility] Advanced Care Planning documentation: [x] I have confirmed that the patient's Advance Care Plan is present, Code Status is documented, or surrogate decision maker is listed in the patient's [...] patient's medical record. [DOES NOT SATISFY [facility] PERFORMANCE] DUSTY FLORES CNP , MARGARET MONTANO-C Hospitalist Medicine 06/23/2025, 3:05 PM Cosigned by Derian Hoover MD at 06/23/2025 6:34 PM EDT Associated attestation - Derian Hoover MD - 06/23/2025 6:34 PM EDT Images from the original note were not included. [address] [place], [place], [address] Attestation Patient: Sylvia Herrera Date of Admission: 06/22/2025 3:44 PM Hospital Day # 1 Date of Evaluation: 06/23/2025 I personally evaluated and examined the patient [id number] in conjunction with the PA/AUTOMOBILE BODY REPAIR CHIEF and agree with the management and dispostition of the patient. Please see the PA/AUTOMOBILE BODY REPAIR CHIEF's note for full details. My bautista findings are: SUBJECTIVE: Patient seen for [...] staff as well. OBJECTIVE: Vitals: Temp: 97.4 F (36.3 C) BP: (!) 169/89 Respirations: 20 Pulse: 73 SpO2: 100 % Weight Wt Readings from Last 3 Encounters: 06/23/25 46.9 kg (103 lb 6.4 oz) 06/18/25 46.3 kg (102 lb) 05/30/25 48.9 kg (107 lb 11.2 oz) Body mass index is 18.91 kg/m . 24HR INTAKE/OUTPUT: Intake/Output Summary (Last 24 hours) at 06/23/2025 1833 Last data filed at 06/23/2025 1724 Gross per 24 hour Intake 1298.67 ml Output 700 ml Net 598.67 ml - Exam: GEN: Awake, alert and oriented x3. [...] Noted right upper thigh lesion noted (in [facility] EMR). DATA: Complete Blood Count: Recent Labs [...] with the plan as outlined in the AUTOMOBILE BODY REPAIR CHIEF/PA's note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 [facility] 01-14-2025 Note [facility] 01-14-2025 Note [facility] 01-13-2025 Note [facility] 01-13-2025 Note [facility] 01-13-2025 Note [facility] 01-13-2025 Note [facility] 01-12-2025 Note [facility] 01-12-2025 Note [facility] 01-12-2025 History of Present illness Narrative [...] and [facility] is NLP so will defer JOINT SUPERVISOR and Avastin at this time. - Continue Cosopt BID and brimonidine TID left - Otherwise comfort measures OS - Follow up with Dr. Diane Stark for glaucoma and IOP management 4-6 weeks following discharge as she lives on [place] [facility] and would prefer to be closer - [...] follow commands. HR 63, BP 89/48, and AHU720 with BG 95. MARGUERITE called immediately. On arrival she became nonresponsive without a pulse to palpation but then returned to consciousness a couple of minutes later. She was then taken by the emergency response team back to the floor for suvbsequent workup. Paco Vega MD Ophthalmology Resident Case discussed with Dr. Yeh and Dr. Alberto. documented in this encounter [facility] 01-12-2025 Note [facility] 01-12-2025 Note [facility] 01-11-2025 Note [facility] 01-11-2025 Note [facility] 01-11-2025 Note [facility] 01-11-2025 Note [facility] 01-10-2025 Note Hospital Medicine Discharge Summary [...] female with the above history remitted to [facility] on 01/08 as a direct transfer from [facility] for which she initially presented on 01/05 for generalized weakness, nausea, vomiting, diarrhea. There was concern for left lower lobe pneumonia as well as UTI and she was found to have worsening kidney function. Creatinine was up to 6 at [facility]. the patient also had elevated BNP to her history of heart transplant she was transferred to [facility]. Unfortunately we do not have heart transplant service here so the patient was ultimately transferred to [facility] on 01/10. During her hospitalization, the patient [...] deferred as the patient was transferred to [facility]. Surgical, Invasive or Diagnostic Procedures Done During Admission: None Consultations During Admission: Cardiology, Infectious Disease, Nephrology, and Neurology Dear Dr. Toribio MD, Sylvia is advised to follow up with you within 1-2 weeks. Items to follow up in ambulatory setting: Pending clinical course at [facility] Follow-up with: Cardiology, Nephrology, and Neurology Scheduled [...] Creon 24,000-76,000 -120,000 unit capsule Generic drug: mqzjsn-aviupsek-lmewmpi dorzolamide-timolol 22.3-6.8 mg/mL ophthalmic solution Commonly known [...] -- -- 1.44* (more content not included)... [facility] 01-10-2025 Note Attestation signed by Sherice Callahan MD at 01/22/2025 2:58 PM Agree with treatment plan. Stroke plan of care: Sylvia Herrera is a 79 y.o. female with a history of heart transplant on immunosuppressants, DREW and CKD, and right-sided ugba-rv-pvmdznhg pleural effusion. We are asked to see [...] Stroke Fellow Patient seen with Dr. Callahan. [facility] 01-10-2025 Note Subjective 79 year old [...] Value Ventricular Rate 63 Atrial Rate 63 MI Interval 170 QRS DURATION 106 QT Interval 442 QTC CALCULATION(BAZETT) 452 P Dierks 53 R-Dierks 84 T Wave Dierks 29 Impression Normal sinus rhythm Right atrial [...] injury- improving Neurology will sign off Tram Post MD [facility] 01-10-2025 Note Attestation signed by Harjinder Reynaga MD at 01/10/2025 7:13 PM I evaluated, discussed and reviewed the patient on rounds with the esthetician and manager medical spa. I agree with their assessment and plan as documented in the patient's progress note from today Cardiology Progress Note Subjective Subjective: Patient seen at bedside. Denies SOB, CP, palpitations, light headedness, dizziness. Objective: Patient Vitals for the past 24 hrs: BP Temp Temp src Pulse Resp SpO2 Weight 01/10/25 0808 141/83 36.3 ???C (97.4 ???F) 72 20 99 % -- 01/10/25 0419 147/80 36.2 ???C (97.2 ???F) 76 24 97 % 49.4 kg (108 lb 14.4 oz) 01/10/25 0000 149/78 -- -- 73 13 99 % -- 01/09/25 2000 152/82 36.3 ???C (97.3 ???F) 72 13 99 % -- 01/09/25 1800 142/74 -- -- 69 16 99 % -- 01/09/25 1617 141/71 36.4 ???C (97.5 ???F) 66 14 100 % -- 01/09/25 1246 [...] Value Ventricular Rate 63 Atrial Rate 63 MI Interval 170 QRS DURATION 106 QT Interval 442 QTC CALCULATION(BAZETT) 452 P Dierks 53 R-Dierks 84 T Wave Dierks 29 Impression Normal sinus rhythm Right atrial [...] Bubble Study Result Date: 01/09/2025 1 1 [facility] Heart Station [address] [place] [address] [phone] (fax) Echocardiogram-[facility] Name: SYLVIA HERRERA Study Date: 01/09/2025 03:38 PM B/P: 127 mmHg/63 mmHg HR: 65 bpm Date of : 1945 Location: [facility] Height: 62 in. Age: 79 year(s) Patient [...] Right Ventricle: The (more content not included)... [facility] 01-10-2025 Note Hospital Medicine Daily Progress Note - 01/10/2025 7:37 AM; Room: [address] [place] [address] Admission: 01/08/2025 7:06 PM; Length of stay: 2 days THE HOSPITALIST TEAM PREFERS TO USE [email or web address] FOR NON-URGENT COMMUNICATION 7AM-7PM. IF I DO NOT RESPOND WITHIN 20 MINUTES OR URGENT MATTERS, PLEASE CALL THROUGH THE MERCHANDISE FLOW TEAM LEADER. FROM 7PM-7AM, PLEASE PAGE [phone](COVR). Code Status: Full Code Barriers to Discharge: Acidemia, DREW - pending bed availability at [facility] Expected Discharge Date: 1-2 days Discharge Destination: [facility] Overview Patient is seen for evaluation and management of DREW. Subjective Patient seen and examined. More alert today and interactive. States she feels so-so and no specific complaints. Appears more hydrated on exam. Pending transfer to [facility] Physical Exam Visit Vitals BP 147/80 (BP Location: Left arm, Patient Position: Lying) Pulse 76 Temp 36.2 ???C (97.2 ???F) (Temporal) Resp 24 Intake/Output Summary (Last 24 hours) at 01/10/2025 0726 Last data filed at 01/09/2025 2309 Gross [...] Daily mycophenolate, 500 mg, oral, BID pancrelipase (Cti-Tgzm-Upuk), 4 capsule, oral, TID with meals pramipexole, [...] Results from last 7 days Lab Units 01/10/2541801/09/2572501/08/252154 SODIUM mmol/L 140 137 136 POTASSIUM mmol/L 4.3 4.8 5.1 CHLORIDE mmol/L 116* 119* 118* CO2 mmol/L 15* 10* 10* BUN mg/dL 85* 83* 83* CREATININE mg/dL 4.51* 4.40* 4.43* GLUCOSE mg/dL 77 105* 135* MAGNESIUM mg/dL -- -- 1.9 CALCIUM mg/dL 6.8* 7.4* 7.4* PHOSPHORUS mg/dL -- -- 4.9 Results from last 7 days Lab Units 01/09/2572501/08/25 2155 AST U/L 20 20 ALT U/L 26 26 ALK PHOS U/L 160* 168* BILIRUBIN TOTAL mg/dL 0.3 0.3 BILIRUBIN DIRECT mg/dL (more content not included)... [facility] 01-09-2025 Note Speech Peer Support Specialist ology Speech/Language Pathology Clinical Swallow Assessment Patient Name: Sylvia Herrera : 1945 Today's Date: 01/09/2025 Recommendations 1) PRACTICE MANAGERS to follow 2) NPO. Short term alt [...] cardiomyopathy, s/p heart transplant in 2005 at [facility], CKD, 3B, anxiety, exocrine pancreatic sufficiency, hypothyroidism, hypertension and hyperlipidemia presented to [facility] as a direct transfer from [facility]. Patient initially presented there on 01/05/25 because of generalized weakness, nausea, vomiting and diarrhea over the last week. Patient also had decreased oral intake and had productive cough. 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 Daly was contacted and agreed for the patient to be transferred to [facility] for nephrology consult. On my assessment, patient [...] once patient has improvement in mentation Assessment/Plan PRACTICE MANAGERS Assessment PRACTICE MANAGERS Problems/Impairments: Swallowing impairments Speech Assessment: Unable to complete given patient lethargy. She was able to state name and only Prognosis: Fair Evaluation/Treatment Tolerance: Patient limited by fatigue Medical Staff Made Aware: Yes Plan Treatment/Interventions: Swallow function PRACTICE MANAGERS Plan: Skilled PRACTICE MANAGERS PRACTICE MANAGERS Frequency: 3 times per week PRACTICE MANAGERS Discharge Recommendations: Inpatient rehab facility placement, long-term facility placement Diet Recommendations: NPO, Dominick Water Protocol PRACTICE MANAGERS - OK to Discharge: (No) Goals Multi-Disciplinary [...] 01/09/25 01/23/25 -- Written/Dictated by Addis Justice CCC-PRACTICE MANAGERS at 2:47 PM [facility] 01-09-2025 Note Hospital Medicine Daily Progress Note - 01/09/2025 8:05 AM; Room: [address] [place] [address] Admission: 01/08/2025 7:06 PM; Length of stay: 1 days THE HOSPITALIST TEAM PREFERS TO USE [email or web address] FOR NON-URGENT COMMUNICATION 7AM-7PM. IF I DO NOT RESPOND WITHIN 20 MINUTES OR URGENT MATTERS, PLEASE CALL THROUGH THE MERCHANDISE FLOW TEAM LEADER. FROM 7PM-7AM, PLEASE PAGE [phone](COVR). Code Status: Full Code Barriers to Discharge: [...] Problem: Acute kidney injury superimposed on CKD ([facility]/HCC) Active Problems: Status post heart transplantation ([facility]) Gastroenteritis Pneumonia of left lower lobe due [...] order TTE, unable to access imaging from [facility]. Will cancel order if images can be sent over. -May need to consider diuresis if suspicion of cardiorenal syndrome but in setting of DREW will forego for now as she is on room air -Also considering transfer to [facility] for h/o heart transplant; she unfortunately has [...] Daily mycophenolate, 500 mg, oral, BID pancrelipase (Hzk-Whyb-Oiay), 4 capsule, oral, TID with meals pramipexole, 0.5 mg, oral, Nightly simvastatin, 20 mg, oral, q PM sodium bicarbonate, 650 mg, oral, TID tacrolimus, 1 mg, oral, BID BETA Pertinent Investigations Hematology: Results from last 7 days Lab Units 01/09/25 0701/08/25 2155 WBC AUTO 10*3/uL 17.00* 15.23* HEMOGLOBIN [...] , FREET4 , CORTISOL , FEV1 , FKN0KIF , DLCO , RVSP , HDL , LDL No results found for: NTDPFTPR31 , IRON , TIBC , C3 , C4 , THELMA , CANCA , ASO , PSA , CEA , CA125 , CA199 , AFP , CA153 Imaging CT head wo IV contrast Narrative: Cl (more content not included)... [facility] 01-08-2025 Note Patient will be on R ocephin IV daily. [facility] 01-08-2025 Note Rocephin 1 g IV tigre y. Will hold on starting azithromycin before we know patient's QT Mucinex as needed for cough Albuterol inhaler as needed for shortness of breath Follow-up on Legionella antigen in the urine [facility] 01-08-2025 Note Symptomatic treatmen t Follow-up on C. difficile testing [facility] 01-08-2025 Note Cardiology consult Per report, patient had echo done 1 day ago which showed normal EF Patient's BNP was elevated but her kidney function worsened significantly. [facility] 01-08-2025 Note Nephrology consult Renal ultrasound Will avoid and hold nephrotoxic medications [facility] 01-08-2025 Note Hospital Medicine History and Physical 01/08/2025 9:36 PM THE HOSPITALIST TEAM PREFERS TO USE Clinicbook CHAT FOR NON-URGENT COMMUNICATION 7AM-7PM. IF I DO NOT RESPOND WITHIN 20 MINUTES OR URGENT MATTERS, PLEASE CALL THROUGH THE MERCHANDISE FLOW TEAM LEADER. FROM 7PM-7AM, PLEASE PAGE [phone](COVR). Chief Complaint No chief complaint on file. History of Present Illness Sylvia Herrera is an 79 y.o. female who came from home with past medical history of nonischemic cardiomyopathy, s/p heart transplant in 2005 at [facility], CKD, 3B, anxiety, exocrine pancreatic sufficiency, hypothyroidism, hypertension and hyperlipidemia presented to [facility] as a direct transfer from [facility]. Patient initially presented there on 2/4/25 because of generalized weakness, nausea, vomiting and diarrhea over the last week. Patient also had decreased oral intake and had productive cough. 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 Daly was contacted and agreed for the patient to be transferred to [facility] for nephrology consult. On my assessment, patient [...] Plan Acute kidney injury superimposed on CKD ([facility]/HCC) Nephrology consult Renal ultrasound Will avoid and hold nephrotoxic medications Status post heart transplantation ([facility]) Cardiology consult Per report, patient had echo [...] be followed durin (more content not included)... [facility] 09-14-2024 Note [place] Cardiology - [facility] Subjective Sylvia Herrera is a [...] on 11/19/16. Similar (more content not included)... [facility] 07-01-2024 Note [place] [facility]iology - [facility] Subjective Sylvia Herrera is a 78 y.o. year old female patient being seen for follow up [facility] for syncope. Says she's been having [...] There is no (more content not included)... [facility] 04-08-2023 Hospital Discharge instructions Patient Education [...] ?Adrenal gland problems. ?Metabolic conditions, such as Glendale's disease or syndrome of inappropriate antidiuresis (SIAD). [...] improvement. Follow these instructions at home: Take gqnn-frd-xfzlxby and prescription medicines only as told by [...] provider. Document Revised: 05/29/2022 Document Reviewed: 05/29/2022 [employer] Patient Education 2022 [employer]. 04/08/2023 08:56:02 Nonspecific Chest Pain, Adult Nonspecific [...] Follow these instructions at home: Medicines Take uodb-sqc-czhqgem and prescription medicines only as told by [...] provider. Document Revised: 02/01/2022 Document Reviewed: 02/01/2022 [employer] Patient Education 2022 [employer]. Follow Up Care 04/07/2023 21:19:10 With:SCOT ROGERS Address: [facility] [place] [address]- [phone] Business (1) When:Within 3 Day(s) [facility] 04-07-2023 Evaluation + Plan note Extrac [...] Troponin 9 Hr. XR Chest Single View [facility]09-01-2022 Miscellaneous Notes* Telephone Encounter - Mami Weems - 08/02/2022 1:41 PM EDT Patient had labs drawn 08/02/22, uploaded to scanned docs. [facility] Miscellaneous Notes* Telephone Encounter - Sho [...] another team. Sho Izaguirre APRN, CNP Pager: [phone] July 05, 2022 10:42 AM Post Heart Transplant Nurse Practitioner documented in this encounter[facility] Miscellaneous Notes* Telephone Encounter - Mami Weems - 07/03/2022 12:59 PM EDT Patient had labs drawn 07/03/22, uploaded to scanned docs. documented in this encounter[facility] Miscellaneous Notes* Addendum Note - Loida [...] her home. She will keep us posted. Loiad Mathias APRN.CNP May 08, 2022 3:19 PM Component Latest Ref Rng & Units 10/10/2021 04/09/2022 04/24/2022 05/07/2022 Tacrolimus/FK506 5.0 - 20.0 ng/mL 10.1 9.9 4.5 (L) 3.4 (L) * Telephone Encounter - Mami Weems - 05/08/2022 11:49 AM EDT Patient had labs drawn 05/07/22, uploaded to scanned docs. Mami Weems Administrative Submarine Cable Equipment Technician documented in this encounterAv[facility]22 Miscellaneous Notes* Telephone Encounter - Mami Rolandczynski - 04/24/2022 1:31 PM EDT Patient left message that she had labs drawn today. Mami Faustina Administrative Submarine Cable Equipment Technician Post Heart Transplant J3-4 documented in this encounterAv[facility] History of Present illness Narrative* Loida [...] reports she can no longer travel to [place]. Shedoes not have a ride, she has no family or friends to lean on. She has made an appt with a local Spring Fitter. She will ask him if there are any transplant doctors or centers near her and potentiallyneed to transfer her care. She will keep us updated. Loida Mathias APRN.CNP April 12, 2022 2:25 PM documented in this encounterAv[facility] History of Past illness Narrative* Problem [...] of this encounter (statuses as of 04/05/2022) [facility] History of Past illness Narrative* Problem [...] of this encounter (statuses as of 04/06/2022) [facility] History of Past illness Narrative* Problem [...] of this encounter (statuses as of 04/12/2022) [facility] History of Past illness Narrative* Problem [...] of this encounter (statuses as of 04/24/2022) [facility] History of Past illness Narrative* Problem [...] of this encounter (statuses as of 05/08/2022) [facility] History of Past illness Narrative* Problem [...] of this encounter (statuses as of 07/03/2022) [facility] of Past illness Narrative* Problem [...] of this encounter (statuses as of 07/05/2022) [facility] History of Past illness Narrative* Problem [...] of this encounter (statuses as of 08/02/2022) [facility] History of Past illness Narrative* Problem [...] of this encounter (statuses as of 09/11/2022) [facility] + Plan note Future Appointments Appointment Date:08/01/2022 01:50:00 PM Scheduled Provider: Location:[facility] Appointment Type:Surgery FT Diagnostic Tests Pending * CMV Antibody IgM 07/16/22 Future Scheduled Tests Laboratory* Fecal WBC Lactoferrin 07/12/22 * Giardia lamblia, Direct Detection EIA 07/12/22 * O & P Exam, Routine 07/12/22 * Clostridium difficile by PCR 07/12/22 * Enteric Panel by PCR 07/12/[address] [facility] Diagnosis Heart transplanted (HCC) Heart replaced by transplant documented in this encounter [facility] note* Diagnosis Heart replaced by transplant (HCC)- Primary Heart replaced by transplant documented in this encounter [facility] note* Diagnosis Heart replaced by transplant (HCC)- Primary Heart replaced by transplant Heart transplanted (HCC) Heart replaced by transplant documented in this encounter [facility] note* Diagnosis Heart transplanted (HCC) Heart replaced by transplant [facility] Diagnosis Heart transplanted (HCC) Heart replaced by transplant [facility] noteNo assessment information [facility]Fire[facility] Work Phone: Evaluation note* Diagnosis Neovascular glaucoma of left eye, 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 Pseudophakia Lens replaced by other means documented in this encounter [facility] note* Diagnosis Neovascular glaucoma of left eye, severe stage- Primary Pseudophakia Lens replaced by other means [facility]* Diagnosis Neovascular glaucoma of left eye, severe stage- Primary Hypertensive retinopathy of right eye Hypertensive retinopathy Pseudophakia of both eyes Lens replaced by other means 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, unspecified whether continuous churn buttermaker insulin use ([facility]) Posterior vitreous detachment of both eyes Vitreous degeneration documented in this encounter [facility] note* Diagnosis Heart replaced by transplant (HCC)- Primary Heart replaced by transplant [facility]* Diagnosis Acute kidney injury superimposed on chronic kidney disease- Primary Acute kidney injury superimposed on chronic kidney disease Anxiety Anxiety state, unspecified Hydronephrosis of right kidney Hydronephrosis History of heart transplant (HCC) Heart replaced by transplant Severe malnutrition Nutritional marasmus documented in this encounter [facility] note* Diagnosis Acute kidney injury superimposed on chronic kidney disease documented in this encounter [facility] note* Diagnosis CKD (chronic kidney disease) stage 5, GFR less than 15 ml/min ([facility]) Chronic kidney disease, Stage V Hyperkalemia Hyperpotassemia Metabolic acidosis Acidosis Hypertensive renal disease, stage 1 through stage 4 or unspecified chronic kidney disease documented in this encounter [facility] note* Diagnosis CKD (chronic kidney disease) stage 5, GFR less than 15 ml/min ([facility]) Chronic kidney disease, Stage V Hyperkalemia Hyperpotassemia Metabolic acidosis Acidosis Hypertensive renal disease, stage 1 through stage 4 or unspecified chronic kidney disease documented in this encounter [facility] note* Diagnosis Hypocalcemia- Primary Hypocalcemia Hypomagnesemia Disorders of [...] superimposed on CKD [facility] Narrative No data available for this section [facility] No data available for this section [facility] Discharge instructions* Attachments The following attachments cannot be sent through Care Everywhere. * Blood Transfusions: General Info (Cymro) * Hypocalcemia (Cymro) [facility] No data available for this section [facility] for visit Narrative* Imaging (Routine) - Not Required - RTA Specialty Diagnoses / Procedures Referred By Contac t Referred To Contact Radiology Diagnoses CKD (chronic kidney disease) stage 5, GFR less than 15 ml/min (HCC) Hyperkalemia Metabolic acidosis Hypertensive renal disease, stage 1 through stage 4 or unspecified chronic kidney disease Procedures US RENAL COMPLETE Shola Norman MD [address] [place] [address] [place] [address] Phone: tel: fax: Referral ID Status Reason Start Date Expiration Date V isits Requested Visits Authorized [id number] Not Required - RTA 06/22/2025 06/22/2026 1 1 [facility] Advance Directives No Advanced Directives Records FoundDocuments on File Type Date Recorded Patient Salesperson Shoes Expl anation Advance Directive(s) 11/14/2017 5:44 AM Advance Directive(s) 01/02/2012 12:00 AM Advance Directive(s) 01/17/2007 12:00 AM Documents on File Type Date Recorded Patient Salesperson Shoes Expl anation Advance Directive(s) 01/02/2012 Advance Directive(s) 01/17/2007 Date Activated Date Inactivated Comments 05/28/2025 5:19 PM Date Activated Date Inactivated Comments 01/10/2017 5:40 PM 01/11/2017 3:31 PM Date Activated Date Inactivated Comments 12/21/2016 1:48 AM 12/28/2016 3:02 PM Healthcare Agents on File Name Relationship Healthcare Agent Relationshi p Communication Ana Roth Child Primary Decision Maker Date Activated Date Inactivated Comments 05/28/2025 5:19 PM 05/30/2025 2:45 PM Date Activated Date Inactivated Comments 01/10/2017 5:40 PM 01/11/2017 3:31 PM Date Activated Date Inactivated Comments 12/21/2016 1:48 AM 12/28/2016 3:02 PM Healthcare Agents on File Name Relationship Healthcare Agent Relationshi p Communication Ana Roth Child Primary Decision Maker Date Activated Date Inactivated Comments 06/22/2025 7:37 PM Date Activated Date Inactivated Comments 05/28/2025 5:19 PM 05/30/2025 2:45 PM Date Activated Date Inactivated Comments 01/10/2017 5:40 PM 01/11/2017 3:31 PM Date Activated Date Inactivated Comments 12/21/2016 1:48 AM 12/28/2016 3:02 PM Healthcare Agents on File Name Relationship Healthcare Agent Relationshi p Communication Ana Roth Child Primary Decision Maker Date Activated Date Inactivated Comments 06/22/2025 7:37 PM Date Activated Date Inactivated Comments 05/28/2025 5:19 PM 05/30/2025 2:45 PM Date Activated Date Inactivated Comments 01/10/2017 5:40 PM 01/11/2017 3:31 PM Date Activated Date Inactivated Comments 12/21/2016 1:48 AM 12/28/2016 3:02 PM Healthcare Agents on File Name Relationship Healthcare Agent Shraonhi p Communication Ana Roth Child Primary Decision Maker Healthcare Agents on File Name Vashti Healthcare Agent Sharonhi p Communication Ana Roth Child Primary Decision Maker Summary Purpose Family History No Family History [...] or prosecute any alcohol or drug abuse patient.[facility] the event this information is protected by the Federal Confidentiality of Alcohol and Drug Abuse Patient Records regulations: The Federal rules restrict any use of the information to criminally investigate or prosecute any alcohol or drug abuse patient.[facility] HospitalIn the event this information is protected by the Federal Confidentiality of Alcohol and Drug Abuse Patient Records regulations: The Federal rules restrict any use of the information to criminally investigate or prosecute any alcohol or drug abuse patient.[facility] HospitalIn the event this information is protected by the Federal Confidentiality of Alcohol and Drug Abuse Patient Records regulations: The Federal rules restrict any use of the information to criminally investigate or prosecute any alcohol or drug abuse patient.[facility] HospitalIn the event this information is protected by the Federal Confidentiality of Alcohol and Drug Abuse Patient Records regulations: The Federal rules restrict any use of the information to criminally investigate or prosecute any alcohol or drug abuse patient.[facility] HospitalIn the event this information is protected by the Federal Confidentiality of Alcohol and Drug Abuse Patient Records regulations: The Federal rules restrict any use of the information to criminally investigate or prosecute any alcohol or drug abuse patient.[facility] HospitalIn the event this information is protected by the Federal Confidentiality of Alcohol and Drug Abuse Patient Records regulations: The Federal rules restrict any use of the information to criminally investigate or prosecute any alcohol or drug abuse patient.[facility] HospitalIn the event this information is protected by the Federal Confidentiality of Alcohol and Drug Abuse Patient Records regulations: The Federal rules restrict any use of the information to criminally investigate or prosecute any alcohol or drug abuse patient.[facility] HospitalIn the event this information is protected by the Federal Confidentiality of Alcohol and Drug Abuse Patient Records regulations: The Federal rules restrict any use of the information to criminally investigate or prosecute any alcohol or drug abuse patient.[facility] HospitalIn the event this information is protected by the Federal Confidentiality of Alcohol and Drug Abuse Patient Records regulations: The Federal rules restrict any use of the information to criminally investigate or prosecute any alcohol or drug abuse patient.[facility] HospitalIn the event this information is protected by the Federal Confidentiality of Alcohol and Drug Abuse Patient Records regulations: The Federal rules restrict any use of the information to criminally investigate or prosecute any alcohol or drug abuse patient.[facility] HospitalIn the event this information is protected by the Federal Confidentiality of Alcohol and Drug Abuse Patient Records regulations: The Federal rules restrict any use of the information to criminally investigate or prosecute any alcohol or drug abuse patient.[facility] HospitalIn the event this information is protected by the Federal Confidentiality of Alcohol and Drug Abuse Patient Records regulations: The Federal rules restrict any use of the information to criminally investigate or prosecute any alcohol or drug abuse patient.[facility] HospitalIn the event this information is protected by the Federal Confidentiality of Alcohol and Drug Abuse Patient Records regulations: The Federal rules restrict any use of the information to criminally investigate or prosecute any alcohol or drug abuse patient.[facility] HospitalIn the event this information is protected by the Federal Confidentiality of Alcohol and Drug Abuse Patient Records regulations: The Federal rules restrict any use of the information to criminally investigate or prosecute any alcohol or drug abuse patient.[facility] HospitalIn the event this information is protected by the Federal Confidentiality of Alcohol and Drug Abuse Patient Records regulations: The Federal rules restrict any use of the information to criminally investigate or prosecute any alcohol or drug abuse patient.[facility] HospitalIn the event this information is protected by the Federal Confidentiality of Alcohol and Drug Abuse Patient Records regulations: The Federal rules restrict any use of the information to criminally investigate or prosecute any alcohol or drug abuse patient.[facility] HospitalIn the event this information is protected by the Federal Confidentiality of Alcohol and Drug Abuse Patient Records regulations: The Federal rules restrict any use of the information to criminally investigate or prosecute any alcohol or drug abuse patient.[facility] Reason for Visit (unrecogniz ed section and content) Reason Comments Neovascular glaucoma of left eye Specialty Diagnoses / Procedures Referred By Ronald yoo Referred To Contact HOSP INPATIENT Diagnoses DREW (acute kidney injury) (HCC) DREW Procedures [facility] [id number] [place] [address] Phone: tel: Referral ID Status Reason Start Date Expiration Date Visits Re quested Visits Authorized [id number] 1 1 Reason Comments Rx Refills Reason Comments Heart Transplant Follow Up Labs Reason Comments Heart Transplant Follow Up Reason Comments Heart Transplant Follow Up labs Reason Comments Heart Transplant Follow Up Lab Meeting Reason Comments Refill Request Reason Comments Neovascular Glaucoma Follow Up Reason Comments [facility] Reason Comments Medication Problem Attempted to call pt 01/26 x2 after hospital discharge to clarify Tacrolimus dosing of 0.5mg BID and Cellcept dosing of 500mg BID, to schedule f/u in [place] per consult note. Patient did not answer, attempted to call friend without answer. Got in touch with daughter Ana who lives in [place]. She will relay these dosing clarifications to her mother today. States they are attempting to move her to low income housing closer to [place] soon. Reason Comments Appointment With Dr Vu Reason Comments Abnormal Lab Patient sent out tod by PCP and medical radiation dosimetrist due to increased creatinine. Specialty Diagnoses / Procedures Referred By Ronald yoo Referred To Contact Diagnoses Acute kidney injury Blanca Barnhart MD [address] [place] [address], [place] [address] Phone: tel: fax: [facility] [address] [place] [address] Referral ID Status Reason Start Date Expiration Date Visits Re quested Visits Authorized [id number] Reason Comments Abnormal Lab Patient had outpatie nt labs today for follow up for nephrology. Received a phone call to come to ER d/t Calcium 5.6. pt reports feeling weak and shaky, diarrhea. Specialty Diagnoses / Procedures Referred By Contac t Referred To Contact Diagnoses Hypocalcemia Derian Hoover MD [address] [place] [address] Phone: tel: fax: [facility] [address] [place] [address] Referral ID Status Reason Start Date Expiration Date Visits Re quested Visits Authorized [id number] 1 1 Care Teams (unrecognized sec tion and content) Roll Press Operator Relationship Specialty Start Date End Date Tao Rooney MD [address] [id number] PCP - General Family Practice 05/13/19 Roll Press Operator Relationship Specialty Start Date End Date Tao Rooney MD [address] [id number] PCP - General Family Practice 05/13/19 Roll Press Operator Relationship Specialty Start Date End Date Tao Rooney MD [address] [id number] PCP - General Family Practice 05/13/19 Roll Press Operator Relationship Specialty Start Date End Date Tao Rooney MD [address] [place] [address] PCP - General Family Practice 05/13/19 Roll Press Operator Relationship Specialty Start Date End Date Tao Rooney MD [address] [id number] PCP - General Family Practice 05/13/19 Roll Press Operator Relationship Specialty Start Date End Date Tao Rooney MD [address] [place] [address] PCP - General Family Medicine 05/13/19 Team Status: Inactive Member Role Status Dates NON STAFF Attending Provider Active Start: 2023 End: June 18, 2024 Roll Press Operator Relationship Specialty Start Date End Date Tao Rooney MD PCP - General Family Medicine 05/13/19 Roll Press Operator Relationship Specialty Start Date End Date Tao Rooney MD PCP - General Family Medicine 05/13/19 Roll Press Operator Relationship Specialty Start Date End Date Tao Rooney MD PCP - General Family Medicine 05/13/19 Sang Guerra MD [address] [facility] [place] [address] Referring Internal Medicine 01/18/25 Roll Press Operator Relationship Specialty Start Date End Date Tao Rooney MD PCP - General Family Medicine 05/13/19 Sang Guerra MD [address] [facility] [place] [address] Referring Internal Medicine 01/18/25 Roll Press Operator Relationship Specialty Start Date End Date Tao Rooney MD PCP - General Family Medicine 05/13/19 Sang Guerra MD [address] [place] [address] Referring Internal Medicine 01/18/25 Roll Press Operator Relationship Specialty Start Date End Date Tao Rooney MD PCP - General Family Medicine 05/13/19 Sang Guerra MD [address] [place] [address] Referring Internal Medicine 01/18/25 Roll Press Operator Relationship Specialty Start Date End Date Tao Rooney MD [address] [place] [address] PCP - General Family Medicine 05/28/25 Roll Press Operator Relationship Specialty Start Date End Date Tao Rooney MD [address] [place] [address] PCP - General Family Medicine 05/28/25 Roll Press Operator Relationship Specialty Start Date End Date Tao Rooney MD [address] [place] [address] PCP - General Family Medicine 05/28/25 Roll Press Operator Relationship Specialty Start Date End Date Tao Rooney MD [address] [place] [address] PCP - General Family Medicine 05/28/25 Roll Press Operator Relationship Specialty Start Date End Date Tao Rooney MD [address] [place] [address] PCP - General Family Medicine 05/28/25 INFORMATION SOURCE (unrecogn ized section and content) DATE CREATED AUTHOR 03/09/2023 [facility] DATE CREATED AUTHOR AUTHOR'S ORGANIZ ATION 07/12/2024 [facility] DATE CREATED AUTHOR AUTHOR'S ORGANIZ ATION 10/11/2024 [facility] DATE CREATED AUTHOR AUTHOR'S ORGANIZ ATION 02/27/2025 [facility] DATE CREATED AUTHOR AUTHOR'S ORGANIZ ATION 06/25/2025 [facility] DATE CREATED AUTHOR AUTHOR'S ORGANIZ ATION 07/13/2025 [facility] DATE CREATED AUTHOR AUTHOR'S ORGANIZ ATION 07/13/2025 [facility] Goals (unrecognized section and content) Goals may be documented in a n alternate section Ordered Prescriptions (unrec ognized section and content) Prescription Sig Dispense Quantity Refills Last Filled Start Date End Date loperamide (IMODIUM) 2 MG capsule Take 1 capsule by mouth 4 times daily as needed for Diarrhea 05/30/2025 5 Prescription Sig Dispense Quantity Refills Last Filled Start Date End Date cholestyramine light 4 g packet Take 1 packet by mouth 2 times daily 60 packet 06/26/2025 Vitamin D, Ergocalciferol, 26866 units CAPS Take 50,000 Units by mouth once a week for 12 doses 12 capsule 06/30/2025 5 lactobacillus (CULTURELLE) capsule Take 1 capsule by mouth daily (with breakfast) 90 capsule 06/27/2025 loperamide (IMODIUM) 2 MG capsule Take 1 capsule by mouth 4 times daily as needed for Diarrhea 40 capsule 06/26/2025 5 Ergocalciferol (VITAMIN D) 79158 units CAPS Take 50,000 Units by mouth once a week for 12 doses 12 capsule 06/30/2025 5 loperamide (IMODIUM) 2 MG capsule Take 1 capsule by mouth 4 times daily as needed for Diarrhea 40 capsule 06/26/2025 5 lactobacillus (CULTURELLE) capsule Take 1 capsule by mouth daily (with breakfast) 90 capsule 06/27/2025 5 cholestyramine light 4 g packet Take 1 packet by mouth 2 times daily 60 packet 06/26/2025 Scheduled Active and Recently Administ ered Medications (unrecognized section and content) Medication Order 05/28/2025 05/29/2025 05/30/2025 atorvastatin (LIPITOR) tablet 20 mg 20 mg, Oral, DAILY, First dose on Sat05/28/25 at 1745, Until Discontinued, Substituted for Simvastatin (ZOCOR). 1753 (Given - Provider: Yaritza Ruggiero RN) 0806 (Given - Provider: Laurence Heath RN) 0827 (Given - Provider: Marianne Soto RN) calcium gluconate 2,000 mg in sodium chloride 100 mL (COMPLETED) 2,000 mg, IntraVENous, at 50 mL/hr, Administer over 120 Minutes, ONCE, On Sat05/29/25 at 1045, For 1 dose 1053 (New Bag - Provider: Laurence Heath RN)1242 (Stopped - Provider: Laurence Heath RN) carvedilol (COREG) tablet 12.5 mg 12.5 mg, Oral, 2 TIMES DAILY WITH MEALS, First dose on Sat05/28/25 at 1900, Until Discontinued, Administer with food to minimize the risk of orthostatic hypotension 2048 (Given - Provider: Gaby Castano RN) 0711 (Given - Provider: Laurence Heath RN)1655 (Given - Provider: Laurence Heath RN) 0827 (Given - Provider: Marianne Soto RN)1700 (Due) levothyroxine (SYNTHROID) tablet 100 mcg 100 mcg, Oral, DAILY BEFORE BREAKFAST, First dose on Sat05/29/25 at 0700, Until Discontinued, Tube feeding (TF) interaction, obtain physician order to manage, recommend holding TF for 30 minutes before and after dose. 0711 (Given - Provider: Laurence Heath RN) 0827 (Given - Provider: Marianne Soto RN) wkvqnh-evomalio-lttzpab (CREON) delayed release capsule 96,000 Units (Patient Supplied) 96,000 Units, Oral, 3 TIMES DAILY WITH MEALS, First dose (after last modification) on Sat05/28/25 at 2115, Until Discontinued, Substituted for pancrelipase (see SOFTWARE TECHNICAL LEAD medication list). 2114 (Due) 0745 (Not Given - Provider: Laurence Heath RN - Reason: Patient/family refused)1130 (Not Given - Provider: Laurence Heath RN - Reason: Medication not available)1616 (Not Given - Provider: Laurence Heath RN - Reason: Medication not available) 0830 (Not Given - Provider: Marianne Soto RN - Reason: Medication not available)1048 (Not Given - Provider: Marianne Soto RN - Reason: Medication not available)1700 (Due) loperamide (IMODIUM) capsule 2 mg (COMPLETED) 2 mg, Oral, ONCE, 1 dose, On Sat05/29/25 at 1215, After each loose stool. 1158 (Given - Provider: Laurence Heath RN) magnesium oxide (MAG-OX) tablet 400 mg 400 mg, Oral, 3 times daily, First dose on Sat05/28/25 at 1745, Until Discontinued 175 (Given - Provider: Yaritza Ruggiero RN)1956 (Not Given - Provider: Gaby Castano RN - Reason: Other - Comment: just took at 1755) 08 (Given - Provider: Laurence Heath RN)1437 (Given - Provider: Laurence Heath RN)2139 (Given - Provider: Gaby Castano RN) 826 (Given - Provider: Marianne Soto RN)1500 (Due)2100 (Due) mycophenolate (CELLCEPT) capsule 500 mg (Patient Supplied) 500 mg, Oral, 2 TIMES DAILY, First dose on Sat05/28/25 at 2100, Until Discontinued, Do not crush or break. We do not have this medication in stock, and there is no direct substitute, or substitute was declined. The medication is marked patient supplied, however if the patient cannot provide their own medication then contact the prescriber for an alternative. 2047 (Given - Provider: Gaby Castano RN) 805 (Given - Provider: Laurence Heath RN)2140 (Given - Provider: Gaby Castano RN) 08 (Given - Provider: Marianne Soto RN)2099 (Due) pramipexole (MIRAPEX) tablet 0.25 mg 0.25 mg, Oral, NIGHTLY, First dose on Sat05/28/25 at 2100, Until Discontinued, Give 2-3 hours before bedtime. 2048 (Given - Provider: Gaby Castano RN) 2139 (Given - Provider: Gaby Castano RN) 2099 (Due) sodium chloride 0.9 % bolus 500 mL (COMPLETED) 500 mL, IntraVENous, at 967.7 mL/hr, Administer over 31 Minutes, ONCE, On Sat05/28/25 at 1400, For 1 dose 1447 (New Bag - Provider: Marianna Savage RN)1529 (Stopped - Provider: Deya Shukla RN) sodium chloride 0.9 % bolus 500 mL (COMPLETED) 500 mL, IntraVENous, at 247.9 mL/hr, Administer over 121 Minutes, ONCE, On Sat05/28/25 at 1745, For 1 dose 1757 (New Bag - Provider: Yaritza Ruggiero RN)2000 (Stopped - Provider: Gaby Castano RN) sodium chloride flush 0.9 % injection 5-40 mL 5-40 mL, IntraVENous, EVERY 12 HOURS SCHEDULED (2 times per day), First dose on Sat05/28/25 at 2100, Until Discontinued, For Line Patency: Peripheral IV = 5 mL; Midline or Central Line = 10 mL/lumen. If following IV push medication, administer flush at same rate as the IV push. Flush volume is determined by type of infusion therapy being given. For non-viscous solutions use: Peripheral IV = 5 mL Midline or Central Line = 10 mL/lumen For viscous solutions (i.e. blood components, parenteral nutrition, contrast media, or after obtaining blood sample) use: Peripheral IV = 10 mL Midline or Central Line = 20 mL/lumen 1955 (Not Given - Provider: Gaby Castano RN - Reason: IV Fluid Infusing) 708 (Not Given - Provider: Laurence Heath RN - Reason: IV Fluid Infusing)2139 (Not Given - Provider: Gaby Castano RN - Reason: IV Fluid Infusing) 829 (Not Given - Provider: Marianne Soto RN - Reason: IV Fluid Infusing)2099 (Due) tacrolimus (proGRAF) capsule 0.5 mg (Patient Supplied) 0.5 mg, Oral, 2 TIMES DAILY, First dose on Sat05/28/25 at 2100, Until Discontinued 2051 (Given - Provider: Gaby Castano RN - Comment: pt supplied; no barcode; will send to pharmacy in a.m.) 805 (Given - Provider: Laurence Heath RN)2139 (Given - Provider: Gaby Castano RN) 0828 (Given - Provider: Marianne Soto, RN)2100 (Due) Continuous Medication Order 05/28/2025 05/29/2025 05/30/2025 0.9 % sodium chloride infusion IntraVENous, at 75 mL/hr, CONTINUOUS, Starting on Sat05/28/25 at 1745 1959 (New Bag - Provider: Gaby Castano RN) 1052 (Stopped - Provider: Marianne Soto, RN) PRN Medication Order 05/28/2025 05/29/2025 05/30/2025 0.9 % sodium chloride infusion IntraVENous, at 5-250 mL/hr, PRN, if patient receiving piggyback infusions and maintenance fluids are not ordered OR KVO fluids to protect IV site / prevent frequent line interruptions/ long duration, Starting on Sat05/28/25 at 1719, For piggyback infusion, administer at same rate [...] or less into rate field of order. acetaminophen (TYLENOL) suppository 650 mg(Linked Group 1) 650 mg, Rectal, EVERY 6 HOURS PRN, Starting on Sat05/28/25 at 1719, Until Discontinued, Pain Mild (1-3), allowed for higher pain score per patient request, Fever, For temp greater than 100.4 F (38 C), Administer if oral route cannot be used. 2114 (See Alternative - Provider: Gaby Castano RN) 21 (See Alternative - Provider: Gaby Castano RN) acetaminophen (TYLENOL) tablet 650 mg(Linked Group 1) 650 mg, Oral, EVERY 6 HOURS PRN, Starting on Sat05/28/25 at 1719, Until Discontinued, Pain Mild (1-3), allowed for higher pain score per patient request, Fever, For temp greater than 100.4 F (38 C), Maximum dose of acetaminophen is 4000 mg from all sources in 24 hours. 2114 (Given - Provider: Gaby E Eyad, RN) 0022 (Given - Provider: Gaby Castano RN) clonazePAM (KLONOPIN) tablet 0.5 mg 0.5 mg, Oral, 2 TIMES DAILY PRN, Starting on Sat05/28/25 at 171, Until Discontinued, Anxiety 0400 (Given - Provider: Gaby Castano RN) loperamide (IMODIUM) capsule 2 mg 2 mg, Oral, 4 TIMES DAILY PRN, Starting on Sat05/29/25 at 1953, Until Discontinued, Diarrhea, After each loose stool. 2139 (Given - Provider: Gaby Castano RN) ondansetron (ZOFRAN) injection 4 mg(Linked Group 2) 4 mg, IntraVENous, EVERY 6 HOURS PRN, Starting on Sat05/28/25 at 171, Until Discontinued, Nausea, Vomiting, Administer if oral route cannot be used. ondansetron (ZOFRAN-ODT) disintegrating tablet 4 mg(Linked Group 2) 4 mg, Oral, EVERY 8 HOURS PRN, Starting on Sat05/28/25 at 171, Until Discontinued, Nausea, Vomiting polyethylene glycol (GLYCOLAX) packet 17 g 17 g, Oral, DAILY PRN, Starting on Sat05/28/25 at 171, Until Discontinued, Constipation, First line therapy for constipation polyvinyl alcohol-povidone 5-6 MG/ML opthalmic solution 1 drop 1 drop, Left Eye, EVERY 4 HOURS PRN, Starting on Sat05/28/25 at 171, Until Discontinued, Dry Eyes, Substituted for cycloSPORINE (RESTASIS). sodium chloride flush 0.9 % injection 10 mL 10 mL, IntraVENous, PRN, Starting on Sat05/28/25 at 171, Until Discontinued, Line Care, After every IV line use Linked Groups Order Group 1: acetaminophen (TYLENOL) tablet 650 mgJump to med 650 mg, Oral, EVERY 6 HOURS PRN, Starting on Sat05/28/25 at 171, Until Discontinued, Pain Mild (1-3), allowed for higher pain score per patient request, Fever, For temp greater than 100.4 F (38 C), Maximum dose of acetaminophen is 4000 mg from all sources in 24 hours. Or acetaminophen (TYLENOL) suppository 650 mgJump to med 650 mg, Rectal, EVERY 6 HOURS PRN, Starting on Sat05/28/25 at 1719, Until Discontinued, Pain Mild (1-3), allowed for higher pain score per patient request, Fever, For temp greater than 100.4 F (38 C), Administer if oral route cannot be used. Group 2: ondansetron (ZOFRAN-ODT) disintegrating tablet 4 mgJump to med 4 mg, Oral, EVERY 8 HOURS PRN, Starting on Sat05/28/25 at 1719, Until Discontinued, Nausea, Vomiting Or ondansetron (ZOFRAN) injection 4 mgJump to med 4 mg, IntraVENous, EVERY 6 HOURS PRN, Starting on Sat05/28/25 at 1719, Until Discontinued, Nausea, Vomiting, Administer if oral route cannot be used. Scheduled Medication Order 06/24/2025 06/25/2025 06/26/2025 alendronate [...] since Sat06/22/2025 at 1937 until manually unheld ascorbic acid (VITAMIN C) tablet 500 mg [...] Tipton RN) 0842 (Given - Provider: Yaritza Ruggiero, SHELDON)1224 (Held by provider - Provider: Tolu aBrba APRN - CELL LEAD - Reason: Other - Comment: Blood in stool, low hgb) 0900 (Automatically Held - Provider: Tolu Barba APRN - CELL LEAD) atorvastatin (LIPITOR) tablet 10 mg 10 mg, [...] Yaritza Ruggiero RN)1232 (Given - Provider: Yaritza Ruggieor RN)1653 (Given - Provider: Yaritza Ruggiero RN) 1013 (Given - Provider: Sahra Burger, SHELDON)1316 (Given - Provider: Sahra Burger RN)1700 (Due) calcium carbonate (TUMS) chewable tablet 1,000 mg 1,000 mg, Oral, 2 times daily, First dose on Sat06/24/25 at 1130, Until Discontinued 1148 (Given - Provider: Shawna Tipton RN)2055 (Given - Provider: Yvonne Mcclendon RN) 0842 (Given - Provider: Yaritza Ruggiero RN)2131 (Given - Provider: Alannah Pham RN) 1013 (Given - Provider: Sahra Burger RN)2100 (Due) calcium gluconate 2,000 mg in sodium chloride [...] Sahra Burger RN)1518 (Stopped - Provider: Yaritza Ruggiero RN) carvedilol (COREG) tablet 12.5 mg 12.5 mg, Oral, 2 TIMES DAILY WITH MEALS, First dose on Sat06/22/25 at 2000, Until Discontinued, Administer with food to minimize the risk of orthostatic hypotension 0734 (Given - Provider: Shawna Tipton RN)1623 (Given - Provider: Shawna Tipton RN) 0843 (Given - Provider: Yaritza Ruggiero RN)1653 (Given - Provider: Yaritza Ruggiero RN) 1021 (Given - Provider: Sahra Burger RN)1700 (Due) cholestyramine light packet 4 g 4 g, Oral, 2 TIMES DAILY, First dose on Sat06/26/25 at 0900, Until Discontinued, Administer other oral medications 1 hour before or 4 to 6 hours after cholestyramine. 1013 (Given - Provider: Sahra Burger RN)2100 (Due) epoetin david-epbx (RETACRIT) injection 6,000 Units 6,000 Units, SubCUTAneous, EVERY MWF (Once per day on Saturday), First dose on Sat06/23/25 at 1700 1659 (Given - Provider: Yaritza Ruggiero RN) lactobacillus (CULTURELLE) capsule 1 capsule 1 capsule, [...] 0747 (Given - Provider: Sahra Burger, SHELDON) kidsvt-velmtsba-aauylgq (ZENPEP) delayed release capsule 20,000 Units 20,000 Units, Oral, 3 TIMES DAILY WITH MEALS, First dose on Sat06/22/25 at 2000, Until Discontinued, Substituted for pancrelipase (see SOFTWARE TECHNICAL LEAD medication list). 0732 (Given - Provider: Shawna Tipton RN)1112 (Given - Provider: Shawna Tipton RN)1621 (Given - Provider: Shawna Tipton RN) 0845 (Given - Provider: Yaritza Ruggiero RN)1232 (Given - Provider: Yaritza Ruggiero RN)1652 (Given - Provider: Yaritza Ruggiero RN) 1012 (Given - Provider: Sahra Burger RN)1255 (Not Given - Provider: Sahra Burger RN - Reason: Medication not available - Comment: Pharmacy made aware)1700 (Due) jtwfsr-rosjweko-epwczmc (ZENPEP) delayed release capsule 5,000 Units 5,000 Units, Oral, 3 TIMES DAILY WITH MEALS, First dose on Sat06/22/25 at 2000, Until Discontinued, Substituted for pancrelipase (see SOFTWARE TECHNICAL LEAD medication list). 0732 (Given - Provider: Shawna Tipton RN)1112 (Given - Provider: Shawna Tipton RN)1621 (Given - Provider: Shawna Tipton RN) 0841 (Given - Provider: Yaritza Ruggiero RN)1232 (Given - Provider: Yaritza Ruggiero RN)1653 (Given - Provider: Yaritza Ruggiero RN) 1012 (Given - Provider: Sahra Burger RN)1255 (Not Given - Provider: Sahra Burger RN - Reason: Medication not available - Comment: Pharmacy made aware)1700 (Due) magnesium oxide (MAG-OX) tablet 400 mg 400 mg, Oral, 3 times daily, First dose on Sat06/22/25 at 2100, Until Discontinued 0734 (Given - Provider: Shawna Tipton RN)1452 (Given - Provider: Shawna Tipton RN)2055 (Given - Provider: Yvonne Mcclendon RN) 0843 (Given - Provider: Yaritza Ruggiero, SHELDON)151 (Given - Provider: Yaritza Ruggiero, SHELDON)2130 (Given - Provider: Alannah Pham RN) 1014 (Given - Provider: Sahra Burger, SHELDON)1500 (Due)2100 (Due) magnesium sulfate 2000 mg in 50 mL [...] Mcclendon RN) 0844 (Given - Provider: Yaritza Ruggiero, SHELDON)2133 (Given - Provider: Alannah Pham RN) 1018 (Given - Provider: Sahra Burger RN)2100 (Due) pantoprazole (PROTONIX) 40 mg in sodium chloride (PF) 0.9 % 10 mL injection 40 mg, IntraVENous, DAILY, First dose on Sat06/23/25 at 1530, Reconstitute with 10 mL 0.9 % sodium chloride and administer over at least 2 minutes. 0732 (Given - Provider: Shawna Tipton RN) 0843 (Given - Provider: Yaritza Ruggiero RN) 1013 (Given - Provider: Sahra Burger RN) pramipexole (MIRAPEX) tablet 0.5 mg 0.5 mg, Oral, NIGHTLY, First dose on Sat06/22/25 at 2100, Until Discontinued, Give 2-3 hours before bedtime. 2055 (Given - Provider: Yvonne Mcclendon RN) 2130 (Given - Provider: Alannah Pham RN) 2099 (Due) sodium bicarbonate tablet 1,300 mg 1,300 mg, Oral, 3 TIMES DAILY, First dose on Sat06/22/25 at 2100, Until Discontinued 0733 (Given - Provider: Shawna Tipton RN)145 (Given - Provider: Shawna Tipton RN)2055 (Given - Provider: Yvonne Mcclendon RN) 0843 (Given - Provider: Yaritza Ruggiero RN)151 (Given - Provider: Yaritza Ruggiero RN)2130 (Given - Provider: Alannah Pham RN) 101 (Given - Provider: Sahra Burger RN)1400 (Due)2099 (Due) sodium chloride flush 0.9 % injection 10 mL 10 mL, IntraVENous, EVERY 12 HOURS SCHEDULED (2 times per day), First dose on Sat06/22/25 at 2100, Until Discontinued 0744 (Given - Provider: Shawna Tipton RN)2057 (Not Given - Provider: Yvonne Mcclendon RN - Reason: IV Fluid Infusing) 0845 (Given - Provider: Yaritza Ruggiero RN)2136 (Not Given - Provider: Alannah Pham RN - Reason: Loss of IV access) 1016 (Not Given - Provider: Sahra Burger RN - Reason: IV Fluid Infusing)2099 (Due) tacrolimus (PROGRAF) capsule 1 mg (Patient Supplied) [...] Tipton RN)1935 (Paused - Provider: Yvonne Mcclendon RN)194 (Paused - Provider: Yvonne Mcclendon RN)194 (Restarted - Provider: Yvonne Mcclendon RN) 0510 (Rate/Dose Verify - Provider: Yvonne Mcclendon [...] interruptions/ long duration, Starting on Sat06/22/25 at 1937, For piggyback infusion, administer at same rate [...] PRN, Starting on Sat06/22/25 at 1937, Until Discontinued, Pain Mild (1-3) OR per patient request for pain score (4-10), Fever, For temp greater than 100.4 F (38 C), Administer if oral route cannot be used. 1622 (See Alternative - Provider: Shawna Tipton, SHELDON) acetaminophen (TYLENOL) tablet 650 mg(Linked Group 1) 650 mg, Oral, EVERY 6 HOURS PRN, Starting on Sat06/22/25 at 193, Until Discontinued, Pain Mild (1-3) OR per patient request for pain score (4-10), Fever, For temp greater than 100.4 F (38 C), Maximum dose of acetaminophen is 4000 mg from all sources in 24 hours. 1622 (Given - Provider: Shawna Tipton, SHELDON) clonazePAM (KLONOPIN) tablet 0.5 mg 0.5 mg, Oral, 2 TIMES DAILY PRN, Starting on Sat06/22/25 at 193, Until Discontinued, Anxiety 2054 (Given - Provider: Yvonne Mcclendon, SHELDON) 213 (Given - Provider: Alannah Pham, RN) loperamide (IMODIUM) capsule 2 mg 2 mg, Oral, 4 TIMES DAILY PRN, Starting on Sat06/23/25 at 1407, Until Discontinued, Diarrhea, After each loose stool. 1015 (Given - Provider: Shawna Tipton, SHELDON) 0002 (Given - Provider: Yvonne Mcclendon, SHELDON)0842 (Given - Provider: Yaritza Ruggiero, SHELDON)1516 (Given - Provider: Yaritza Ruggiero, SHELDON)2130 (Given - Provider: Alannah Pham, RN) ondansetron (ZOFRAN) injection 4 mg(Linked Group 2) 4 mg, IntraVENous, EVERY 6 HOURS PRN, Starting on Sat06/22/25 at 193, Until Discontinued, Nausea, Vomiting, Administer if oral route cannot be used. ondansetron (ZOFRAN-ODT) disintegrating tablet 4 mg(Linked Group 2) 4 mg, Oral, EVERY 8 HOURS PRN, Starting on Sat06/22/25 at 193, Until Discontinued, Nausea, Vomiting polyethylene glycol (GLYCOLAX) packet 17 g 17 g, Oral, DAILY PRN, Starting on Sat06/22/25 at 1936, Until Discontinued, Constipation, First line therapy for constipation sodium chloride flush 0.9 % injection 10 mL 10 mL, IntraVENous, PRN, Starting on Sat06/22/25 at 193, Until Discontinued, Line Care, After every IV line use Linked Groups Order Group 1: acetaminophen (TYLENOL) tablet 650 mgJump to med 650 mg, Oral, EVERY 6 HOURS PRN, Starting on Sat06/22/25 at 1936, Until Discontinued, Pain Mild (1-3) OR per patient request for pain score (4-10), Fever, For temp greater than 100.4 F (38 C), Maximum dose of acetaminophen is 4000 mg from all sources in 24 hours. Or acetaminophen (TYLENOL) suppository 650 mgJump to med 650 mg, Rectal, EVERY 6 HOURS PRN, Starting on Sat06/22/25 at 1936, Until Discontinued, Pain Mild (1-3) OR per patient request for pain score (4-10), Fever, For temp greater than 100.4 F (38 C), Administer if oral route cannot be used. Group 2: ondansetron (ZOFRAN-ODT) disintegrating tablet 4 mgJump to med 4 mg, Oral, EVERY 8 HOURS PRN, Starting on Sat06/22/25 at 1936, Until Discontinued, Nausea, Vomiting Or ondansetron (ZOFRAN) injection 4 mgJump to med 4 mg, IntraVENous, EVERY 6 HOURS PRN, Starting on Sat06/22/251936, Until Discontinued, Nausea, Vomiting, Administer if oral route cannot be used. FOR RECORDS PERTAINING TO PATIENTS WHO ARE [...] BE BASED ON THE PRIMARY CLINICAL RECORDS. [facility]. provides no warranty or guarantee of the accuracy or completeness of information in this document.
== END 2025-07-16 09:11 | disposition home or self-care (01) ==
LOC: CARD 09:10
PROVIDERS: PCP Family Medicine; Visit Provider Internal Medicine Interventional Cardiology
DX: I27.20 Pulmonary hypertension, unspecified (principal); Z94.1 Heart transplant status
CPT/HCPCS: 93306